=== PATIENT | female | born 1950 | race Caucasian/White ===

== ENCOUNTER → 2017-09-28 16:34 | Outpatient (CLI) | payer MEDICARE, SELFPAY ==
[2017-09-28 17:19] LABS: ALB/GLOB Ratio 0.9 RATIO (0.9-2.4); AST(SGOT) 14 U/L (15-37); Alanine Aminotransfer ALT/SGPT 27 U/L (13-56); Albumin, Serum 3.6 g/dL (3.2-5.0); Alkaline Phosphatase 116 U/L (45-117); Anion Gap 6 (5-15); BUN 14 mg/dL (7-18); BUN/Creat Ratio 16.6 RATIO (10-20); Calcium,Total 9.3 mg/dL (8.5-10.1); Chloride 104 mmol/L (98-107); Creatinine, Serum 0.84 mg/dL (0.55-1.02); EST Glomerular Filtration Rate 72 mL/min (>60); Est Glom Filt Rate - Afr Amer 87 mL/min (>60); Globulin 4.2 g/dL (2.2-4.2); Glucose 176 mg/dL (74-106); Potassium 4.6 mmol/L (3.5-5.1); Protein, Total 7.8 g/dL (6.4-8.2); Sodium Level 139 mmol/L (136-145)
[2017-09-28 17:25] LABS: Hemoglobin A1c 9.3 % (4.2-6.3)
== END ==
PROVIDERS: Family Provider Internal Medicine; PCP Internal Medicine; Visit Provider Internal Medicine
DX: E11.65 Type 2 diabetes mellitus with hyperglycemia (principal); I10 Essential (primary) hypertension
CPT/HCPCS: 80053; 83036

== ENCOUNTER → 2018-01-30 13:15 | Outpatient (CLI) | payer MEDICARE, SELFPAY ==
[2018-01-30 13:37] LABS: Mean Corp Hgb Conc 31.6 g/gl (32-36); Mean Corpuscular Hgb 26.3 pg (27.0-32.0); Mean Corpuscular Volume 83.2 fL (81-99); Mean Platelet Vol. 10.8 fl (6.2-12.0); Platelet Count 273 K/mm3 (150-450); RBC Distribution Width CV 14.3 % (11.6-14.6); Red Blood Count 4.57 M/mm3 (4.2-5.4); White Blood Count 8.2 K/mm3 (4.4-11.0)
[2018-01-30 13:39] LABS: Scan Indicated on CBC? Y/N NO
[2018-01-30 13:45] LABS: Anion Gap 9 (5-15); BUN 23 mg/dL (7-18); BUN/Creat Ratio 24.4 RATIO (10-20); Calcium,Total 9.2 mg/dL (8.5-10.1); Chloride 105 mmol/L (98-107); Creatinine, Serum 0.94 mg/dL (0.55-1.02); EST Glomerular Filtration Rate 63 mL/min (>60); Est Glom Filt Rate - Afr Amer 76 mL/min (>60); Glucose 147 mg/dL (74-106); Potassium 4.7 mmol/L (3.5-5.1); Sodium Level 135 mmol/L (136-145)
[2018-01-30 13:53] LABS: Hemoglobin A1c 8.7 % (4.2-6.3)
== END ==
PROVIDERS: Family Provider Internal Medicine; PCP Internal Medicine; Visit Provider Internal Medicine
DX: E11.65 Type 2 diabetes mellitus with hyperglycemia (principal); Z79.899 Other long term (current) drug therapy
CPT/HCPCS: 80048; 83036; 85027

== ENCOUNTER → 2018-02-01 15:40 | Outpatient (CLI) | payer MEDICARE, SELFPAY ==
--- NOTE | 2018-02-01 15:55 | RAD_ITS ---
STUDY: X-RAY - PELVIS AND LEFT HIP REASON FOR EXAM: Female, 68 years old. Left hip pain TECHNIQUE: Radiological exam, hip, unilateral, with pelvis when performed; 2 or 3 views. COMPARISON: None. FINDINGS: There is a non-specific bowel gas pattern. Normal visualized soft tissue structures. Normal bilateral iliac wings, sacroiliac joints and visualized sacrum. Normal bilateral superior and inferior pubic rami. Normal pubic symphysis. Normal bilateral ischial tuberosities. Normal visualized femoral head. Normal acetabulum. Normal hip joint. RAD/HIP, UNI W/ Pelvis 2-3 Views IMPRESSION: Normal x-ray examination of the pelvis and hip. Electronically Signed: Felix Arora MD at 15:35 EDT , Service support ,
== END ==
LOC: LAB 15:43 → RAD 15:46
PROVIDERS: Family Provider Internal Medicine; PCP Internal Medicine; Visit Provider Internal Medicine
DX: M25.552 Pain in left hip (principal); M53.3 Sacrococcygeal disorders, not elsewhere classified; M70.62 Trochanteric bursitis, left hip
CPT/HCPCS: 73502

== ENCOUNTER → 2018-05-18 12:22 | Outpatient (CLI) | payer MEDICARE, SELFPAY ==
[2018-05-18 13:28] LABS: Hematocrit 35.4 % (37-47); Hemoglobin 11.1 g/dl (12.0-15.0); Mean Corp Hgb Conc 31.4 g/gl (32-36); Mean Corpuscular Hgb 26.1 pg (27.0-32.0); Mean Corpuscular Volume 83.1 fL (81-99); Platelet Count 295 K/mm3 (150-450); RBC Distribution Width CV 14.8 % (11.6-14.6); RBC Distribution Width SD 44.9 fl (35.1-43.9); Red Blood Count 4.26 M/mm3 (4.2-5.4); White Blood Count 7.1 K/mm3 (4.4-11.0)
[2018-05-18 13:29] LABS: Scan Indicated on CBC? Y/N NO
[2018-05-18 13:40] LABS: ALB/GLOB Ratio 0.8 RATIO (0.9-2.4); AST(SGOT) 17 U/L (15-37); Alanine Aminotransfer ALT/SGPT 25 U/L (13-56); Albumin, Serum 3.5 g/dL (3.2-5.0); Alkaline Phosphatase 79 U/L (45-117); Anion Gap 6 (5-15); BUN 21 mg/dL (7-18); BUN/Creat Ratio 23.5 RATIO (10-20); Calcium,Total 8.9 mg/dL (8.5-10.1); Chloride 108 mmol/L (98-107); Cholesterol 195 mg/dL (200); Creatinine, Serum 0.89 mg/dL (0.55-1.02); EST Glomerular Filtration Rate 67 mL/min (>60); Est Glom Filt Rate - Afr Amer 81 mL/min (>60); Globulin 4.2 g/dL (2.2-4.2); Glucose 191 mg/dL (74-106); High Density Lipoprotein 81 mg/dL; Potassium 4.7 mmol/L (3.5-5.1); Protein, Total 7.7 g/dL (6.4-8.2); Sodium Level 140 mmol/L (136-145); Triglycerides 84 mg/dL; Very Low Density Lipoprotein 17 mg/dL (5-40)
[2018-05-18 13:46] LABS: Hemoglobin A1c 8.9 % (4.2-6.3)
[2018-05-18 13:53] LABS: Microalbumin,Random Urine 35.1 mg/L (NO RANGE EST.); Microalbumin:Creatinine Ratio 18.3 mg/g CRE (<30 mg/g CRE)
== END ==
PROVIDERS: Family Provider Internal Medicine; PCP Internal Medicine; Referring Provider Internal Medicine; Visit Provider Internal Medicine
DX: I10 Essential (primary) hypertension (principal); E11.65 Type 2 diabetes mellitus with hyperglycemia; Z79.899 Other long term (current) drug therapy
CPT/HCPCS: 80053; 80061; 82043; 82570; 83036; 85027

== ENCOUNTER → 2018-06-29 07:50 | Outpatient (CLI) | payer MEDICARE, SELFPAY ==
--- NOTE | 2018-06-29 07:52 | BI_ITS ---
MAMMOGRAPHY - BILATERAL SCREENING REASON FOR EXAM: Female, 68 years old. Routine annual screening examination. PERTINENT HISTORY: Non-contributory. Remote right excisional breast biopsy and stereotactic breast biopsy. TECHNIQUE: Digital bilateral breast edgar (3D mammographic acquisition) in the CC and MLO projections. 2-D mediolateral oblique (MLO) and craniocaudad (CC) views of both breasts were obtained. CAD: Full Field Digital Mammography with Computer Added Detection was performed. COMPARISON: No comparison mammograms available at this time. If any prior films become available, an addendum to this report can be generated. FINDINGS: Breast Composition: The breasts are heterogeneously dense, which may obscure small masses. Cluster microcalcification is seen in the slightly superior lateral aspect of the right breast. A biopsy is recommended for further evaluation. Small bilateral axillary lymph nodes. No other significant abnormalities are identified. BI/SCREENING MAMM (CAD), BILAT IMPRESSION: Cluster of mitral calcification in the upper lateral portion of the right breast as described. Biopsy recommended for further evaluation ASSESSMENT CATEGORY: BIRADS Category 4: Suspicious - Biopsy Should Be Considered. A letter regarding these results will be sent to the patient by the facility within 30 days. Approximately 10% of breast cancers are not detected by mammography. A normal mammogram should not delay biopsy of a clinically suspicious abnormality. [id number] Electronically Signed: Jordan Jones MD at 11:16 EST , Service support ,
== END ==
PROVIDERS: Family Provider Internal Medicine; PCP Internal Medicine; Referring Provider Internal Medicine; Visit Provider Internal Medicine
DX: Z12.31 Encounter for screening mammogram for malignant neoplasm of breast (principal)
CPT/HCPCS: 77063; 77067

== ENCOUNTER → 2018-07-28 09:57 | Outpatient (CLI) | payer MEDICARE, SELFPAY ==
[2018-07-11 14:56] VITALS: BMI 39.8
--- NOTE | 2018-07-28 10:50 | PCM.OPRPT ---
Problem List (1) Abnormal mammogram of right breast Status: Acute Report of Operation Date of Procedure: 07/28/18 Pre-Operative Diagnosis: Clustered microcalcifications upper outer quadrant right breast Post-Operative Diagnosis: Same Surgery/Procedure Performed:: Stereotactic needle core biopsy upper outer quadrant right breast Description of Surgical Findings:: Timeout and informed consent was obtained. 68-year-old female was taken to the stereotactic unit placed prone on the table the right breast was placed in the cc view. Stereotactic images were obtained after the lesion was identified. A central target site was selected. The breast was prepped with Betadine. 1% lidocaine mixed 50-50 with 0.5% Marcaine was used as a local anesthetic. A total of 8 cc was used. A small stab incision was created. An 8-gauge resolve needle was advanced to prefer depth. Prefire films were obtained demonstrating adequate localization. The device was fired. 6 cores were obtained. Specimen mammograms were obtained. Cord #2 had the vast majority of the microcalcifications in question present. A marking clip was left at 12 o'clock position. She was released from the device. Pressure was held for hemostasis. The specimens were immediately transferred to formalin for analysis. Specimens breast cores. Drains none. Blood loss minimal. She was given activity wound care instructions. Further office follow-up will be as needed. Reji Donnelly M.D., F.A.C.S. Type of Anesthesia:: Local
== END ==
PROVIDERS: Family Provider Internal Medicine; PCP Internal Medicine; Referring Provider Surgery
DX: N60.21 Fibroadenosis of right breast (principal); R92.8 Other abnormal and inconclusive findings on diagnostic imaging of breast; E11.9 Type 2 diabetes mellitus without complications; I10 Essential (primary) hypertension; M19.90 Unspecified osteoarthritis, unspecified site; G47.30 Sleep apnea, unspecified; F32.9 Major depressive disorder, single episode, unspecified; F41.9 Anxiety disorder, unspecified; Z79.84 Long term (current) use of oral hypoglycemic drugs; Z79.82 Long term (current) use of aspirin; Z79.1 Long term (current) use of non-steroidal anti-inflammatories (NSAID); Z79.899 Other long term (current) drug therapy
CPT/HCPCS: 19081; 88305; J7050

== ENCOUNTER 2018-09-23 17:17 | Emergency (ER) | payer MEDICARE, SELFPAY ==
[2018-07-11 14:56] VITALS: BMI 39.8
[2018-09-23 17:18] VITALS: BP 174/103; PULSE 110; RESP 18; TEMP 36.1; O2SAT 95; BMI 40.0
--- NOTE | 2018-09-23 17:40 | ED.VISSUMM ---
- ER Visit Summary Date of Service: 09/23/18 Chief Complaint: Back pain History of Present Illness: The patient is a 68 F presents to the emergency department lower back pain. Patient states she has a history of spinal stenosis. She has had cervical surgery and lumbar surgery. She states that about a week ago, she began to have a dull ache in her right low back that radiated into her right hip. She thought it was secondary to her new diabetes medication that she was on. She states she stopped taking it. The pain has gotten a little bit worse. She is now having some burning pain in her buttock that radiates down her leg. She denies any change in gait. She denies any trouble urinating or moving her bowels. She denies any trauma. She had no fever or chills. She has taken some Tylenol with some improvement. Physical Examination: Afebrile, vitals unremarkable. Well-appearing female no acute distress. Head is normocephalic, atraumatic. Pupil's equal round reactive, extraocular muscles intact. Neck supple. Heart regular rate and rhythm. Lungs clear, chest nontender. Abdomen soft, nontender, nondistended. No pulsatile mass. Patient has paraspinal tenderness in the lumbar area, but no bony tenderness. Straight leg raise is positive on the right re-creating paresthesias but no weakness. 2+ symmetric lower extremity pulses. 2+ reflexes. No clonus. No weakness of dorsiflexion, plantar flexion, or extensor hallucis longus bilaterally. Test Results: [] Emergency Department Course and Treatment: The patient has no red flag symptoms. She has normal pulses. She does have improvement of pain when she crosses her legs. There is no weakness though. She is a normal steady gait. Plain films were obtained which show degenerative change. My suspicion is that this is a right lower radiculopathy. Patient was given oral analgesics with improvement. She has muscle relaxers at home. I do feel that she is safe for outpatient follow-up. She is comfortable with this plan of care and will be discharged home. Treatment Plan: [] Disposition: Discharge Impression: 1. Right lumbar radiculopathy This note was generated with [employer] software. It may contain incorrect words, spelling, and punctuation that were not noted in review of the chart prior to signing ED Disposition - Plan for ED Patient: Instructions: ED Sciatica Prescriptions: Oxycodone HCl/Acetaminophen [Percocet 5/325] 1 tab PO Q6H PRN PRN 3 Days #12 tab PRN Reason: Pain Referrals: Lesley Yoder MD [Primary Care Provider] -
[2018-09-23] MEDS: oxyCODONE 5 MG Tablet PO (17:43)
--- NOTE | 2018-09-23 17:55 | RAD_ITS ---
STUDY: X-RAY - LUMBAR SPINE REASON FOR EXAM: Female, 68 years old. Lower back pain radiating to right hip and right leg times one week. History of low back surgery. TECHNIQUE: 3 view(s) of the lumbar spine were obtained. COMPARISON: None FINDINGS: Normal lumbar lordosis. There is no substantial scoliosis. There is slight retrolisthesis of L2 on L3. There are changes of prior L2, L3 and partial L4 laminectomies. There is multilevel endplate spondylosis of the lumbar vertebrae, most particularly at L1-2 and L2-3. There is multi-level degenerative disc disease with multi-level disc space narrowing, most severe at L2-3. There is no demonstrated osseous destructive lesion or acute fracture. There are degenerative changes in the lumbar facet joints. There is atherosclerotic calcification of the abdominal aorta without a demonstrated aneurysm. RAD/Lumbar Spine 2 or 3 Views IMPRESSION: Degenerative changes of the spine, as detailed above. Prior laminectomies at L2 and L3, and possible partial laminectomy of L4. Electronically Signed: Pranay Olivares MD at 18:41 EDT , Service support ,
== END 2018-09-23 19:05 | disposition home or self-care (01) ==
LOC: ED 17:54
PROVIDERS: Emergency Provider Emergency Medicine; Family Provider Internal Medicine; PCP Internal Medicine
DX: M54.16 Radiculopathy, lumbar region (principal); M48.00 Spinal stenosis, site unspecified; E11.9 Type 2 diabetes mellitus without complications; Z79.84 Long term (current) use of oral hypoglycemic drugs
CPT/HCPCS: 72100; 99282

== ENCOUNTER → 2018-09-28 | Outpatient (CLI) | payer MEDICARE, SELFPAY ==
[2018-09-23 17:18] VITALS: BMI 40.0
[2018-09-28 16:26] LABS: Hematocrit 39.4 % (37-47); Hemoglobin 12.6 g/dl (12.0-15.0); Mean Corpuscular Hgb 25.6 pg (27.0-32.0); Mean Corpuscular Volume 80.1 fL (81-99); Mean Platelet Vol. 10.4 fl (6.2-12.0); Platelet Count 329 K/mm3 (150-450); RBC Distribution Width CV 15.5 % (11.6-14.6); RBC Distribution Width SD 45.3 fl (35.1-43.9); Red Blood Count 4.92 M/mm3 (4.2-5.4); White Blood Count 7.9 K/mm3 (4.4-11.0)
[2018-09-28 16:30] LABS: Erythrocyte Sedimentation Rate 37 mm/hr (0-30); Scan Indicated on CBC? Y/N NO
[2018-09-28 16:41] LABS: Vitamin D,25 Hydroxy 4.5 ng/mL (29.95-100.01)
[2018-09-28 16:42] LABS: ALB/GLOB Ratio 0.8 RATIO (0.9-2.4); AST(SGOT) 18 U/L (15-37); Alanine Aminotransfer ALT/SGPT 28 U/L (13-56); Albumin, Serum 3.6 g/dL (3.2-5.0); Alkaline Phosphatase 82 U/L (45-117); Anion Gap 8 (5-15); BUN 28 mg/dL (7-18); BUN/Creat Ratio 30.6 RATIO (10-20); CPK Total, Creatine Kinase 53 U/L (26-192); CRP 6.17 mg/L (0.0-3.0); Calcium,Total 9.2 mg/dL (8.5-10.1); Chloride 104 mmol/L (98-107); Cholesterol 171 mg/dL (200); Creatinine, Serum 0.92 mg/dL (0.55-1.02); EST Glomerular Filtration Rate 65 mL/min (>60); Est Glom Filt Rate - Afr Amer 79 mL/min (>60); Free T3 2.7 pg/mL (2.18-3.98); Globulin 4.4 g/dL (2.2-4.2); Glucose 244 mg/dL (74-106); Hemoglobin A1c 9.3 % (4.2-6.3); High Density Lipoprotein 76 mg/dL; Potassium 4.5 mmol/L (3.5-5.1); Sodium Level 137 mmol/L (136-145); T4 Total, Thyroxin 9.6 ug/dL (4.8-13.9); Triglycerides 110 mg/dL; Very Low Density Lipoprotein 22 mg/dL (5-40)
== END | disposition home or self-care (01) ==
LOC: LABSPEC 16:02
PROVIDERS: Family Provider Internal Medicine; PCP Internal Medicine; Referring Provider Internal Medicine; Visit Provider Internal Medicine
DX: M79.10 Myalgia, unspecified site (principal); M25.50 Pain in unspecified joint; E11.65 Type 2 diabetes mellitus with hyperglycemia; E78.2 Mixed hyperlipidemia
CPT/HCPCS: 80053; 80061; 82306; 82550; 83036; 84436; 84443; 84481; 85027; 85652; 86140

== ENCOUNTER 2018-10-03 14:22 | Inpatient (IN) | payer MEDICARE, SELFPAY ==
[2018-10-03] VITALS (14 sets, daily range): BP systolic 94–164; BP diastolic 60–111; PULSE 110–165; RESP 16–28; TEMP 36.5–37.6; O2SAT 95–98; BMI 40.0; BMI 40.6
--- NOTE | 2018-10-03 14:45 | EKG12_ITS ---
Test Reason : RAPID HR Blood Pressure : / mmHG Vent. Rate : 160 BPM Atrial Rate : 220 BPM P-R Int : 000 ms QRS Dur : 078 ms QT Int : 264 ms P-R-T Axes : 000 049 -28 degrees QTc Int : 430 ms Atrial fibrillation with rapid ventricular response Nonspecific ST & T Wave Abnormality Abnormal ECG Confirmed by NEVA CALLOWAY, JULIUS ([id number]), state editor AMALIA MEJIA ([id number]) on 10/05/2018 1:29:42 PM Referred By: NAYLA Confirmed By:JULIUS HOOKS MD
--- NOTE | 2018-10-03 14:45 | CT_ITS ---
STUDY: CT BRAIN WITHOUT CONTRAST REASON FOR EXAM: Female, 68 years old. Slurred speech. New onset of atrial fibrillation. RADIATION DOSAGE (If Supplied By Facility): CTDIvol = ( 44.99 ) mGy, DLP = ( 779.24 ) mGycm TECHNIQUE: Transaxial CT imaging of the brain was performed without administration of intravenous contrast material. Individualized dose optimization techniques were used for this CT. COMPARISON: No relevant priors. FINDINGS: Normal soft tissue structures. There is hyperostosis frontalis internus. There is mild cerebral atrophy with widening of the extra-axial spaces and ventricular dilatation. There is a 7.7 mm rounded hypodensity in the insular cortex of the right temporal lobe. This may represent a lacunar infarct. There is also evidence of mild decreased attenuation in the right posterior temporal parietal lobe. This may represent subacute ischemia. Normal basal ganglia and thalami. Normal brainstem. Normal cerebellum. There is no intracranial hemorrhage. There are no findings of an acute ischemic infarction. Mild mucosal thickening of the left maxillary sinus. CT/Brain/Head without Contrast IMPRESSION: Findings suggestive of a lacunar infarct in the insular cortex of the right temporal lobe. Decreased attenuation in the posterior right temporal parietal lobe. Subacute ischemia should BE ruled out. Electronically Signed: Jordan Jones, at 15:09 EDT , Service support ,
[2018-10-03 14:59] LABS: Absolute Lymphocyte Count 0.52 X10^3/ul (0.83-4.51); Absolute Neutrophil Count 12.5 X10^3/uL (2.0-7.7); Basophil# 0.02 X10^3/uL; Basophil% 0.1 % (0-1); Differential Indicated SCAN CRITERIA MET; Eosinophil# 0.07 X10^3/uL; Eosinophils% 0.5 % (0-5); Hematocrit 34.2 % (37-47); Hemoglobin 11.3 g/dl (12.0-15.0); Lymphocyte # 0.52 X10^3/ul (4.0); Lymphocyte % 3.7 % (19-41); Mean Corpuscular Hgb 25.9 pg (27.0-32.0); Mean Corpuscular Volume 78.4 fL (81-99); Mean Platelet Vol. 11.1 fl (6.2-12.0); Monocyte# 0.88 X10^3/uL; Monocyte% 6.3 % (0-10); Neutrophil # 12.48 X10^3/uL (2.7-7.7); Neutrophil % 89.2 % (47-70); POSITIVE COUNT NO; POSITIVE DIFFERENTIAL YES; POSITIVE MORPHOLOGY NO; Platelet Count 188 K/mm3 (150-450); RBC Distribution Width CV 16.9 % (11.6-14.6); RBC Distribution Width SD 48.4 fl (35.1-43.9); Red Blood Count 4.36 M/mm3 (4.2-5.4)
[2018-10-03] MEDS: 0.9% Normal Saline 1,000 ML 1000 ML IV (15:02)
[2018-10-03 15:11] LABS: Bedside Glucose 421 mg/dL (70-110)
[2018-10-03 15:25] LABS: International Normalized Ratio 1.4; Partial Thromboplast Time 33.4 Seconds (24.1-36.2); Prothrombin Time (Protime)PT. 17.2 SECONDS (11.7-14.9)
[2018-10-03 15:49] LABS: Anion Gap 15 (5-15); BUN 78 mg/dL (7-18); BUN/Creat Ratio 14.7 RATIO (10-20); Calcium,Total 9.2 mg/dL (8.5-10.1); Chloride 95 mmol/L (98-107); Creatinine, Serum 5.31 mg/dL (0.55-1.02); EST Glomerular Filtration Rate 9 mL/min (>60); Est Glom Filt Rate - Afr Amer 10 mL/min (>60); Estimated Creatinine Clearance 8.62 ml/min; Glucose 413 mg/dL (74-106); Potassium 4.6 mmol/L (3.5-5.1); Sodium Level 129 mmol/L (136-145)
--- NOTE | 2018-10-03 16:51 | ED.VISSUMM ---
- ER Visit Summary Date of Service: 10/03/18 Chief Complaint: Back pain History of Present Illness: The patient is a [address] Yoder. She reports that she has low back pain that began abruptly approximately 2 weeks ago. Reports that it is a dull pain is 4-10 with movement and she is pain-free at rest. It radiates down the back of her right leg to her knee. She reports that her right leg is felt weak and numb for the past 3 weeks. Denies any groin numbness. No problems with her bowels or her bladder. She denies any trauma. No fall, MVA, or change in activity. Patient denies any chest pain or palpitations. No fever or chills. No headache. Physical Examination: Vitals: 98.4, 99/68, 156, 16, 96% on room air which is not hypoxic. General: Well-nourished and well-developed. Head: Normocephalic atraumatic. Neck: Supple, no lymphadenopathy. No JVD. Nontender. Cardiovascular: Tachycardic irregular rhythm. No murmurs. Respiratory: No respiratory distress. Clear to auscultation bilaterally. Abdominal: Soft, nontender, nondistended, normal bowel sounds. No guarding, rebound, or peritoneal signs. Back: Moderate diffuse tenderness palpation over the lumbar spine and paraspinous Gaetano and lumbar region bilaterally. Negative straight leg raise bilaterally. 5 out of 5 dorsiflexion, plantarflexion, extensor hallucis longus bilaterally. Normal sensation light touch throughout.. Extremities: Nontender, no edema. Skin: Normal color, no rash. Neurologic: Alert and oriented ?3. Cranial nerves II through XII are intact. Normal strength and sensation. Psych: Normal affect. Test Results: EKG shows atrial fibrillation at a rate of [address] changes. This is a change from 2002. Troponin is negative. Chem-7 is marked for a sodium of 129 with a glucose of 413. Potassium is 4.6, chloride is 95, bicarb is 19, creatinine is 5.31. She has small serum ketones. INR is 1.4 with PTT of 33.4. CBC shows a white count of 14.0 with an H&H of 11.3 and 34.2, segmented neutrophils of 89, monocytes of 4. Clinical Impression(s) from Imaging Studies Brain CT 10/03/18 14:45 IMPRESSION: Findings suggestive of a lacunar infarct in the insular cortex of the right temporal lobe. Decreased attenuation in the posterior right temporal parietal lobe. Subacute ischemia should BE ruled out. Electronically Signed: Jordan Jones, at 15:09 EDT , Service support , Fax [phone] Emergency Department Course and Treatment: Patient refused pain medications and is resting comfortably. She is given a liter normal saline. She was started on insulin drip. She converted to a sinus rhythm here without any further treatment by me. Her NIH scale is 1. Her slurred speech has started more than 24 hours ago. She is not a TPA candidate. Treatment Plan: The patient was discussed with Dr. Lopez. She will be admitted to the hospital for further evaluation and treatment. Disposition: Admitted in serious condition. Impression: 1. Atrial fibrillation with RVR. 2. Back pain. 3. CVA. 4. Acute renal insufficiency. 5. DKA. 6. Critical care time 30 minutes. This note was generated with [employer] dictation software. It may contain incorrect words, spelling, and punctuation that were not noted in review of the chart prior to signing ED Disposition - Plan for ED Patient: Referrals: Lesley Yoder MD [Primary Care Provider] -
--- NOTE | 2018-10-03 16:55 | ED.DCSUM_ITS ---
- ER Visit Summary Date of Service: 10/03/18 Chief Complaint: Back pain History of Present Illness: The patient is a [address] Yoder. She reports that she has low back pain that began abruptly approximately 2 weeks ago. Reports that it is a dull pain is 4-10 with movement and she is pain-free at rest. It radiates down the back of her right leg to her knee. She reports that her right leg is felt weak and numb for the past 3 weeks. Denies any groin numbness. No problems with her bowels or her bladder. She denies any trauma. No fall, MVA, or change in activity. Patient denies any chest pain or palpitations. No fever or chills. No headache. Physical Examination: Vitals: 98.4, 99/68, 156, 16, 96% on room air which is not hypoxic. General: Well-nourished and well-developed. Head: Normocephalic atraumatic. Neck: Supple, no lymphadenopathy. No JVD. Nontender. Cardiovascular: Tachycardic irregular rhythm. No murmurs. Respiratory: No respiratory distress. Clear to auscultation bilaterally. Abdominal: Soft, nontender, nondistended, normal bowel sounds. No guarding, rebound, or peritoneal signs. Back: Moderate diffuse tenderness palpation over the lumbar spine and paraspinous Gaetano and lumbar region bilaterally. Negative straight leg raise bilaterally. 5 out of 5 dorsiflexion, plantarflexion, extensor hallucis longus bilaterally. Normal sensation light touch throughout.. Extremities: Nontender, no edema. Skin: Normal color, no rash. Neurologic: Alert and oriented ?3. Cranial nerves II through XII are intact. Normal strength and sensation. Psych: Normal affect. Test Results: EKG shows atrial fibrillation at a rate of [address] changes. This is a change from 2002. Troponin is negative. Chem-7 is marked for a sodium of 129 with a glucose of 413. Potassium is 4.6, chloride is 95, bicarb is 19, creatinine is 5.31. She has small serum ketones. INR is 1.4 with PTT of 33.4. CBC shows a white count of 14.0 with an H&H of 11.3 and 34.2, segmented neutrophils of 89, monocytes of 4. Clinical Impression(s) from Imaging Studies Brain CT 10/03/18 14:45 IMPRESSION: Findings suggestive of a lacunar infarct in the insular cortex of the right temporal lobe. Decreased attenuation in the posterior right temporal parietal lobe. Subacute ischemia should BE ruled out. Electronically Signed: Jordan Jones, at 15:09 EDT , Service support , Fax [phone] Emergency Department Course and Treatment: Patient refused pain medications and is resting comfortably. She is given a liter normal saline. She was started on insulin drip. She converted to a sinus rhythm here without any further treatment by me. Her NIH scale is 1. Her slurred speech has started more than 24 hours ago. She is not a TPA candidate. Treatment Plan: The patient was discussed with Dr. Lopez. She will be admitted to the hospital for further evaluation and treatment. Disposition: Admitted in serious condition. Impression: 1. Atrial fibrillation with RVR. 2. Back pain. 3. CVA. 4. Acute renal insufficiency. 5. DKA. 6. Critical care time 30 minutes. This note was generated with [employer] dictation software. It may contain incorrect words, spelling, and punctuation that were not noted in review of the chart prior to signing ED Disposition - Plan for ED Patient: Referrals: Lesley Yoder MD [Primary Care Provider] -
--- NOTE | 2018-10-03 17:27 | PCM.HP.STD ---
History of Present Illness Date of Admission: 10/03/18 Chief Complaint: general malaise The patient is a 68 year old F with past medical history as listed. She was admitted through the ED on 10/03/2018 with complaint of generalized malaise and back pain as well as generalized pain for the past 3 weeks which had worsened recently. Patient states that she had seen her primary care doctor and had consider urgent care and emergency room for the back pain and generalized malaise. Back x-ray was done but she was told there was nothing wrong with it. She went home and felt unsteady on her feet and has had several falls recently. Symptoms were however persisting and she started feeling some weakness in her right side though she does have chronic baseline right-sided weakness. She therefore decided to come into the ED today. On arrival in the ED, she was found to be in A. fib with RVR with heart rate in the 160s the patient denied ever having any palpitations. Labs done showed sodium of 129 with bicarb of 19 and anion gap of 15. Creatinine was 5.31 with a baseline creatinine of less than 1 just a few days ago. Glucose was 421 and CBC showed white cell count of 14. Brain CT showed findings suggestive of a lacunar infarct in the insular cortex of the right temporal lobe with decreased attenuation in the right posterior temporal parietal lobe. She spontaneously converted to sinus rhythm was in the ED. She has been admitted to be managed for new onset CRISTIAN, DKA and stroke. [] Past Medical History Medical History: Medical History (Last Reviewed 07/11/18 @ 14:55 by Dede Kasper) Abnormal mammogram of right breast (Acute) R92.8 Abnormal mammogram of right breast R92.8 Arthritis M19.90 Depression with anxiety F41.8 Diabetes E11.9 Sleep apnea G47.30 Hypertension I10 Allergies fosinopril [From Monopril] Allergy (Unknown, Verified 10/03/18 14:25) unknown pioglitazone Adverse Reaction (Verified 10/03/18 14:25) Other Home Medications: Ambulatory Orders Medication Instructions Recorded aspirin 81 mg chewable tablet 81 mg PO DAILY 07/11/18 glimepiride 4 mg tablet 4 mg PO BID tab 07/11/18 losartan 50 mg tablet 50 mg PO BID tab 07/11/18 metformin 1,000 mg tablet 1,000 mg PO BID 07/11/18 naproxen 500 mg tablet 500 mg PO BID 07/11/18 oxybutynin chloride ER 15 mg 15 mg PO DAILY 07/11/18 tablet,extended release 24 hr sertraline 100 mg tablet 100 mg PO DAILY 07/11/18 sitagliptin 100 mg tablet 100 mg PO DAILY 07/11/18 Acetaminophen [Tylenol Extra 500 mg PO Q6H PRN PRN 10/03/18 Strength] Cyclobenzaprine HCl 5 - 10 mg PO TID PRN PRN 10/03/18 Metoprolol Tartrate [Lopressor 25 mg PO BID 10/03/18 (beta fritz)] Oxycodone HCl/Acetaminophen 1 tab PO Q6H PRN PRN 10/03/18 [Oxycodone-Acetaminophen 5-325] Simvastatin [Zocor] 20 mg PO QHS 10/03/18 Surgical History: Surgical History (Last Updated 07/11/18 @ 14:55 by Dede Kasper) History of back surgery Z98.890 History of carpal tunnel release Z98.890 History of hysterectomy Z90.710 Psychiatric History: No pertinent psych hx 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 Denies: Chills, Fever, Night Sweats Eyes: Denies: Blurred vision, Conjunctivae Inflammation, Double vision, Vision Change HEENT: Denies: Head Aches, Sinus Congestion, Sinus Drainage Cardiovascular: Denies: Chest Pain, Palpitations Respiratory: Denies: Cough, Shortness of Breath, Shortness of breath at rest, Shortness of breath upon exertion, Sputum production, Wheezing Gastrointestinal: Denies: Abdominal Pain, Nausea, Vomiting Genitourinary: Denies: Dysuria Musculoskeletal: Denies: Joint Pain, Joint Tenderness Skin: Denies: Rash, Wounds Neurological: Reports: Balance problems, Focal weakness. Denies: Blurred vision, Double vision, Change in Speech, Slurred speech, Confusion, Difficulty swallowing, Incoordination, Numbness, Tingling, Tremor, Seizures Psychiatric: Denies: Anxiety, Depression, Homicidal Ideations, Suicidal Ideations Hematologic/ Lymphatic: Denies: Easy Bruising, Easy Bleeding VTE Information - Inpt Only VTE Present on Admission: No VTE Pharm Prophylaxis ordered?: Yes - Physical Exam General: Alert, Oriented x3, Cooperative, No apparent distress, Lethargic HEENT: Atraumatic, PERRLA, EOMI, Normocephalic Oral: Dry Mucosa Neck: Supple, No JVD, Negative Carotid Bruits Lungs: Clear to auscultation, Normal air movement, No rhonchi, No wheeze, No rales Cardiovascular: Normal S1, Normal S2, No murmurs, Tachycardic Abdomen: Bowel Sounds Present, Soft, Non Tender, Non-Distended, No Hepato-splenomegaly Extremities: No clubbing, No cyanosis, No edema, Capillary Refill Less than 3 Seconds Skin: No rashes, No breakdown Musculoskeletal: No Tenderness to Palpation of Joints or Extremities Lymphatic: No Cervical, Supraclavicular, or Inguinal Adenopathy Neurological: Cranial nerves II-XII grossly intact, Neuro grossly intact, - - very mildly decreased power in RUE. Psych/Mental Status: Normal Affect, Appropriate, Alert and oriented to time, place, person, mood and affect Vital Signs Temp Pulse Resp BP Pulse Ox 98.4 F 110 H 20 H 117/60 95 10/03/18 14:22 10/03/18 17:00 10/03/18 17:00 10/03/18 17:00 10/03/18 17:00 Oxygen Flow Rate (L/min) 2 Oxygen Delivery Method Nasal Cannula Weight: 226 lb Body Mass Index (BMI) 40.0 Finger Stick Blood Glucose 421 Laboratory Tests Past 24 Hrs 10/03/18 10/03/18 10/03/18 14:45 14:45 14:45 WBC 14.0 H RBC 4.36 Hgb 11.3 L Hct 34.2 L MCV 78.4 L MCH 25.9 L MCHC 33.0 RDW 16.9 H RDW Differential 48.4 H Plt Count 188 MPV 11.1 Immature Gran % (Auto) 0.200 Neut % (Auto) 89.2 H Lymph % (Auto) 3.7 L [place] % (Auto) 6.3 Eos % (Auto) 0.5 Baso % (Auto) 0.1 Absolute Neuts (auto) 12.5 H Absolute Lymphs (auto) 0.52 L Total Counted Not Reportable PT Cancelled INR Cancelled APTT Cancelled Sodium Cancelled Potassium Cancelled Chloride Cancelled Carbon Dioxide Cancelled Anion Gap Cancelled BUN Cancelled Creatinine Cancelled Estim Creat Clear Calc Cancelled Est GFR (MDRD) Af Amer Cancelled Est GFR (MDRD) Non-Af Cancelled BUN/Creatinine Ratio Cancelled Glucose Cancelled Calcium Cancelled Troponin I Cancelled Acetone Level 10/03/18 10/03/18 10/03/18 15:07 15:07 15:40 WBC RBC Hgb Hct MCV MCH MCHC RDW RDW Differential Plt Count MPV Immature Gran % (Auto) Neut % (Auto) Lymph % (Auto) [place] % (Auto) Eos % (Auto) Baso % (Auto) Absolute Neuts (auto) Absolute Lymphs (auto) Total Counted PT 17.2 H INR 1.4 APTT 33.4 Sodium 129 L Potassium 4.6 Chloride 95 L Carbon Dioxide 19.0 L Anion Gap 15 BUN 78 H Creatinine 5.31 H Estim Creat Clear Calc 8.62 Est GFR (MDRD) Af Amer 10 L Est GFR (MDRD) Non-Af 9 L BUN/Creatinine Ratio 14.7 Glucose 413 H Calcium 9.2 Troponin I < 0.015 Acetone Level SMALL H POC Glucose 10/03/18 15:05 POC Glucose 421 H Diagnostic Data Brain CT 10/03/18 14:45 IMPRESSION: Findings suggestive of a lacunar infarct in the insular cortex of the right temporal lobe. Decreased attenuation in the posterior right temporal parietal lobe. Subacute ischemia should BE ruled out. Electronically Signed: Jordan Jones, at 15:09 EDT , Service support , Assessment/Plan All Active Problems (Last Reviewed 07/11/18 @ 14:55 by Dede Kasper) Abnormal mammogram of right breast (Acute) 68-year-old female admitted with a complaint of generalized malaise and weakness found to be in A. fib with RVR, DKA and having severe CRISTIAN. 1. Afib with RVR new onset, has no history of AFib spontaneously converted to sinus rhythm in ED admit to ICU o/a of concomitant severe CRISTIAN and DKA monitor HR for now. IV lopressor prn. If HR remains persistently >120, to start cardizem drip 2D echo, cycle troponins CHADVASC score is 5 will benefit from anticoagulation- will hold off for now till after the MRI of the cardiology consult- discussed with DR Wesley, will start amiodarone drip with bolus if HR remains elevated 2. DKA says she has been compliant with her diabetes meds, but has not been eating or drinking well glucose was 421, bicarb is 19 and anion gap is 15 will hydrate with IVF ~ 150cc/hr of NS; insulin drip at 0.1IU/kg/hr switch to D5 1/2 NS when blood sugar falls to <250 check BMP [id number] hold oral diabetes meds for now-metformin, januvia and glimepiride. check A1C 3. CRISTIAN Cr is 5.31, was <1 around a week ago. will check urinalysis check FeNA to assess type of CRISTIAN will check CPK too in light of her frequent falls and generalised body aches renal USG if CR doesnt trend down by tomorrow, will consult nephrology 4. SIRS criteria has SIRS 3/4 present (tachycardia, tachypnea and leucocytosis) wbc is 145 no clear source of infection,. may be reactive from DKA and Afib will get blood cultures; hold off on antibiotics for now monitor SIRS criteria 5. Acute CVA NIHSS- [address] brain showed lacunar infarct in insular cortex of right temporal lobe and decdresed attenuation in the posterior right temporal parietal lobe; subacute ischemia should be ruled out consult neurology MRI brain and MRA of the head/neck neurochecks as per stroke protocol check A1C and lipid panel high intensity statin consult PT/OT hold BP meds for permissive hypertension. Start BP meds only if BP<220/120mmHg out of window for TPA as symptoms started weeks ago and her last known well as she remembers is 3 weeks ago will not start anticoagulation for Afib for now o/a of the ischemic CVA. 6. Hyponatremia: Na is 129. Likely a pseudohyponatremia due to hyperglycemia. Corrected sodium is 134 Hydrate with IVF nad monitor 7. Hypertension: BP 117/60 at time of admission. WIll hold BP meds- losartan, metoprolol and allow for permissive hypertension 8. Urinary retention: On oxybutynin. DVT prophylaxis: Heparin Total critical care time: 55 mins spent seeing patient, and coordinating care. Code Visit Inpatient E&M: 78527 Init Hosp L3 Procedures: 66792 Critial Care 1st Hr
[2018-10-03 17:30] LABS: Bedside Glucose 328 mg/dL (70-110)
--- NOTE | 2018-10-03 17:31 | HP.PCM_ITS ---
History of Present Illness Date of Admission: 10/03/18 Chief Complaint: general malaise The patient is a 68 year old F with past medical history as listed. She was admitted through the ED on 10/03/2018 with complaint of generalized malaise and back pain as well as generalized pain for the past 3 weeks which had worsened recently. Patient states that she had seen her primary care doctor and had consider urgent care and emergency room for the back pain and generalized malaise. Back x-ray was done but she was told there was nothing wrong with it. She went home and felt unsteady on her feet and has had several falls recently. Symptoms were however persisting and she started feeling some weakness in her right side though she does have chronic baseline right-sided weakness. She therefore decided to come into the ED today. On arrival in the ED, she was found to be in A. fib with RVR with heart rate in the 160s the patient denied ever having any palpitations. Labs done showed sodium of 129 with bicarb of 19 and anion gap of 15. Creatinine was 5.31 with a baseline creatinine of less than 1 just a few days ago. Glucose was 421 and CBC showed white cell count of 14. Brain CT showed findings suggestive of a lacunar infarct in the insular cortex of the right temporal lobe with decreased attenuation in the right posterior temporal parietal lobe. She spontaneously converted to sinus rhythm was in the ED. She has been admitted to be managed for new onset CRISTIAN, DKA and stroke. [] Past Medical History Medical History: Medical History (Last Reviewed 07/11/18 @ 14:55 by Dede Kasper) Abnormal mammogram of right breast (Acute) R92.8 Abnormal mammogram of right breast R92.8 Arthritis M19.90 Depression with anxiety F41.8 Diabetes E11.9 Sleep apnea G47.30 Hypertension I10 Allergies fosinopril [From Monopril] Allergy (Unknown, Verified 10/03/18 14:25) unknown pioglitazone Adverse Reaction (Verified 10/03/18 14:25) Other Home Medications: Ambulatory Orders Medication Instructions Recorded aspirin 81 mg chewable tablet 81 mg PO DAILY 07/11/18 glimepiride 4 mg tablet 4 mg PO BID tab 07/11/18 losartan 50 mg tablet 50 mg PO BID tab 07/11/18 metformin 1,000 mg tablet 1,000 mg PO BID 07/11/18 naproxen 500 mg tablet 500 mg PO BID 07/11/18 oxybutynin chloride ER 15 mg 15 mg PO DAILY 07/11/18 tablet,extended release 24 hr sertraline 100 mg tablet 100 mg PO DAILY 07/11/18 sitagliptin 100 mg tablet 100 mg PO DAILY 07/11/18 Acetaminophen [Tylenol Extra 500 mg PO Q6H PRN PRN 10/03/18 Strength] Cyclobenzaprine HCl 5 - 10 mg PO TID PRN PRN 10/03/18 Metoprolol Tartrate [Lopressor 25 mg PO BID 10/03/18 (beta fritz)] Oxycodone HCl/Acetaminophen 1 tab PO Q6H PRN PRN 10/03/18 [Oxycodone-Acetaminophen 5-325] Simvastatin [Zocor] 20 mg PO QHS 10/03/18 Surgical History: Surgical History (Last Updated 07/11/18 @ 14:55 by Dede Kasper) History of back surgery Z98.890 History of carpal tunnel release Z98.890 History of hysterectomy Z90.710 Psychiatric History: No pertinent psych 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 Denies: Chills, Fever, Night Sweats Eyes: Denies: Blurred vision, Conjunctivae Inflammation, Double vision, Vision Change HEENT: Denies: Head Aches, Sinus Congestion, Sinus Drainage Cardiovascular: Denies: Chest Pain, Palpitations Respiratory: Denies: Cough, Shortness of Breath, Shortness of breath at rest, Shortness of breath upon exertion, Sputum production, Wheezing Gastrointestinal: Denies: Abdominal Pain, Nausea, Vomiting Genitourinary: Denies: Dysuria Musculoskeletal: Denies: Joint Pain, Joint Tenderness Skin: Denies: Rash, Wounds Neurological: Reports: Balance problems, Focal weakness. Denies: Blurred vision, Double vision, Change in Speech, Slurred speech, Confusion, Difficulty swallowing, Incoordination, Numbness, Tingling, Tremor, Seizures Psychiatric: Denies: Anxiety, Depression, Homicidal Ideations, Suicidal Ideations Hematologic/ Lymphatic: Denies: Easy Bruising, Easy Bleeding VTE Information - Inpt Only VTE Present on Admission: No VTE Pharm Prophylaxis ordered?: Yes - Physical Exam General: Alert, Oriented x3, Cooperative, No apparent distress, Lethargic HEENT: Atraumatic, PERRLA, EOMI, Normocephalic Oral: Dry Mucosa Neck: Supple, No JVD, Negative Carotid Bruits Lungs: Clear to auscultation, Normal air movement, No rhonchi, No wheeze, No rales Cardiovascular: Normal S1, Normal S2, No murmurs, Tachycardic Abdomen: Bowel Sounds Present, Soft, Non Tender, Non-Distended, No Hepato- splenomegaly Extremities: No clubbing, No cyanosis, No edema, Capillary Refill Less than 3 Seconds Skin: No rashes, No breakdown Musculoskeletal: No Tenderness to Palpation of Joints or Extremities Lymphatic: No Cervical, Supraclavicular, or Inguinal Adenopathy Neurological: Cranial nerves II-XII grossly intact, Neuro grossly intact, - - very mildly decreased power in RUE. Psych/Mental Status: Normal Affect, Appropriate, Alert and oriented to time, place, person, mood and affect Vital Signs Temp Pulse Resp BP Pulse Ox 98.4 F 110 H 20 H 117/60 95 10/03/18 14:22 10/03/18 17:00 10/03/18 17:00 10/03/18 17:00 10/03/18 17:00 Oxygen Flow Rate (L/min) 2 Oxygen Delivery Method Nasal Cannula Weight: 226 lb Body Mass Index (BMI) 40.0 Finger Stick Blood Glucose 421 Laboratory Tests Past 24 Hrs 10/03/18 10/03/18 10/03/18 14:45 14:45 14:45 WBC 14.0 H RBC 4.36 Hgb 11.3 L Hct 34.2 L MCV 78.4 L MCH 25.9 L MCHC 33.0 RDW 16.9 H RDW Differential 48.4 H Plt Count 188 MPV 11.1 Immature Gran % (Auto) 0.200 Neut % (Auto) 89.2 H Lymph % (Auto) 3.7 L [place] % (Auto) 6.3 Eos % (Auto) 0.5 Baso % (Auto) 0.1 Absolute Neuts (auto) 12.5 H Absolute Lymphs (auto) 0.52 L Total Counted Not Reportable PT Cancelled INR Cancelled APTT Cancelled Sodium Cancelled Potassium Cancelled Chloride Cancelled Carbon Dioxide Cancelled Anion Gap Cancelled BUN Cancelled Creatinine Cancelled Estim Creat Clear Calc Cancelled Est GFR (MDRD) Af Amer Cancelled Est GFR (MDRD) Non-Af Cancelled BUN/Creatinine Ratio Cancelled Glucose Cancelled Calcium Cancelled Troponin I Cancelled Acetone Level 10/03/18 10/03/18 10/03/18 15:07 15:07 15:40 WBC RBC Hgb Hct MCV MCH MCHC RDW RDW Differential Plt Count MPV Immature Gran % (Auto) Neut % (Auto) Lymph % (Auto) [place] % (Auto) Eos % (Auto) Baso % (Auto) Absolute Neuts (auto) Absolute Lymphs (auto) Total Counted PT 17.2 H INR 1.4 APTT 33.4 Sodium 129 L Potassium 4.6 Chloride 95 L Carbon Dioxide 19.0 L Anion Gap 15 BUN 78 H Creatinine 5.31 H Estim Creat Clear Calc 8.62 Est GFR (MDRD) Af Amer 10 L Est GFR (MDRD) Non-Af 9 L BUN/Creatinine Ratio 14.7 Glucose 413 H Calcium 9.2 Troponin I < 0.015 Acetone Level SMALL H POC Glucose 10/03/18 15:05 POC Glucose 421 H Diagnostic Data Brain CT 10/03/18 14:45 IMPRESSION: Findings suggestive of a lacunar infarct in the insular cortex of the right temporal lobe. Decreased attenuation in the posterior right temporal parietal lobe. Subacute ischemia should BE ruled out. Electronically Signed: Jordan Jones, at 15:09 EDT , Service support , Assessment/Plan All Active Problems (Last Reviewed 07/11/18 @ 14:55 by Dede Kasper) Abnormal mammogram of right breast (Acute) 68-year-old female admitted with a complaint of generalized malaise and weakness found to be in A. fib with RVR, DKA and having severe CRISTIAN. 1. Afib with RVR * new onset, has no history of AFib * spontaneously converted to sinus rhythm in ED * admit to ICU o/a of concomitant severe CRISTIAN and DKA * monitor HR for now. IV lopressor prn. If HR remains persistently >120, to start cardizem drip * 2D echo, cycle troponins * CHADVASC score is 5 * will benefit from anticoagulation- will hold off for now till after the MRI of the * cardiology consult- discussed with DR Wesley, will start amiodarone drip with bolus if HR remains elevated * 2. DKA * says she has been compliant with her diabetes meds, but has not been eating or drinking well * glucose was 421, bicarb is 19 and anion gap is 15 * will hydrate with IVF ~ 150cc/hr of NS; insulin drip at 0.1IU/kg/hr * switch to D5 1/2 NS when blood sugar falls to <250 * check BMP y0cyensy * hold oral diabetes meds for now-metformin, januvia and glimepiride. * check A1C * 3. CRISTIAN * Cr is 5.31, was <1 around a week ago. * will check urinalysis * check FeNA to assess type of CRISTIAN * will check CPK too in light of her frequent falls and generalised body aches * renal USG * if CR doesnt trend down by tomorrow, will consult nephrology * 4. SIRS criteria * has SIRS 3/4 present (tachycardia, tachypnea and leucocytosis) * wbc is 145 * no clear source of infection,. * may be reactive from DKA and Afib * will get blood cultures; hold off on antibiotics for now * monitor SIRS criteria * 5. Acute CVA * NIHSS- 1 on review * CT brain showed lacunar infarct in insular cortex of right temporal lobe and decdresed attenuation in the posterior right temporal parietal lobe; subacute ischemia should be ruled out * consult neurology * MRI brain and MRA of the head/neck * neurochecks as per stroke protocol * check A1C and lipid panel * high intensity statin * consult PT/OT * hold BP meds for permissive hypertension. Start BP meds only if BP<220/120mmHg * out of window for TPA as symptoms started weeks ago and her last known well as she remembers is 3 weeks ago * will not start anticoagulation for Afib for now o/a of the ischemic CVA. * 6. Hyponatremia: * Na is 129. * Likely a pseudohyponatremia due to hyperglycemia. * Corrected sodium is 134 * Hydrate with IVF nad monitor 7. Hypertension: BP 117/60 at time of admission. WIll hold BP meds- losartan, metoprolol and allow for permissive hypertension 8. Urinary retention: On oxybutynin. DVT prophylaxis: Heparin Total critical care time: 55 mins spent seeing patient, and coordinating care. Code Visit Inpatient E&M: 54369 Init Hosp L3 Procedures: 69647 Critial Care 1st Hr
[2018-10-03 17:56] LABS: Bedside Glucose 356 mg/dL (70-110)
--- NOTE | 2018-10-03 17:59 | US_ITS ---
STUDY: RENAL ULTRASOUND - COMPLETE REASON FOR EXAM: Female, 68 years old. Acute renal failure. TECHNIQUE: Ultrasound evaluation of the kidneys was performed with real-time and static boothe-scale imaging. COMPARISON: None. FINDINGS: RIGHT KIDNEY: Normal location of the right kidney, which is normal in size. The right kidney measures 11.4 cm. There is a normal cortex of the right kidney. The renal cortex measures 1.8 cm. There is no right renal mass or cyst. There are no right renal calculi. There is no right hydronephrosis. DISTAL RIGHT URETER: There is non-visualization of the distal right ureter. There is no demonstrated right ureterovesical junction calculus. There is no demonstrated right ureteral jet. LEFT KIDNEY: Normal location of the left kidney, which is normal in size. The left kidney measures 11.9 cm. There is a normal cortex of the left kidney. The renal cortex measures 1.9 cm. There is no left renal mass or cyst. There are no left renal calculi. There is no left hydronephrosis. DISTAL LEFT URETER: There is non-visualization of the distal left ureter. There is no demonstrated left ureterovesical junction calculus. There is no demonstrated left ureteral jet. BLADDER: The urinary bladder is collapsed about a Butt catheter. US/Kidney and Bladder IMPRESSION: Normal ultrasound of the kidneys. Electronically Signed: Sridhar Marinelli DO at 23:20 EDT Tel [phone], Service support ,
[2018-10-03] MEDS: Metoprolol Tartrate 5 MG/5 ML Vial IV ×2 (18:45→19:49)
[2018-10-03 19:03] LABS: Hemoglobin A1c 9.8 % (4.2-6.3)
[2018-10-03 19:44] LABS: Color, Urine Yellow (Yellow); Glucose, Dipstick Normal (Normal); Ketone-Dipstick 5 mg/dl (Negative); Leukocyte Esterase-Dipstick 500 /ul (Negative); Nitrite-Dipstick Positive (Negative); Occult Blood-Urine 150 /ul (Negative); Protein-Dipstick 100 mg/dl (Negative); Urine Clarity Turbid (Clear); Urine Urobilinogen 1 mg/dl (Normal)
[2018-10-03 19:47] LABS: Urine Bilirubin Dipstick 1 mg/dL (Negative); Urine Sodium 40 mmol/L (Not Establ.)
[2018-10-03 19:54] LABS: Anion Gap 12 (5-15); BUN 77 mg/dL (7-18); BUN/Creat Ratio 15.2 RATIO (10-20); CPK Total, Creatine Kinase 49 U/L (26-192); Calcium,Total 8.9 mg/dL (8.5-10.1); Chloride 99 mmol/L (98-107); Cholesterol 139 mg/dL (200); Creatinine, Serum 5.05 mg/dL (0.55-1.02); EST Glomerular Filtration Rate 9 mL/min (>60); Est Glom Filt Rate - Afr Amer 11 mL/min (>60); Estimated Creatinine Clearance 9.06 ml/min; Glucose 333 mg/dL (74-106); High Density Lipoprotein 9 mg/dL; Potassium 4.4 mmol/L (3.5-5.1); Sodium Level 131 mmol/L (136-145); Triglycerides 508 mg/dL
[2018-10-03 20:10] LABS: Bedside Glucose 337 mg/dL (70-110)
--- NOTE | 2018-10-03 20:20 | PCM.CONS.C ---
Problem List (1) Atrial fibrillation Status: Acute (2) HTN (hypertension) Status: Chronic (3) Hypertriglyceridemia Status: Acute (4) Diabetes mellitus Status: Chronic (5) DKA (diabetic ketoacidoses) Status: Acute (6) Renal insufficiency Status: Acute (7) CVA (cerebral vascular accident) Status: Acute Reason for Consult Date of Consultation: 10/03/18 History of Present Illness: The patient is a 68 year old white female with no past cardiovascular history other than hypertension who was referred for atrial fibrillation with RVR in the setting of an acute CVA superimposed upon findings of hypertriglyceridemia, diabetes mellitus with concerns of DKA, and acute renal insufficiency. The patient presented based upon concerns of ongoing generalized weakness/malaise and back discomfort and was felt to have right-sided lower extremity paresthesias and weakness. In the emergency department she was found to be in atrial fibrillation with rapid ventricular response. She was also found to have concerns of DKA and acute renal insufficiency. She was subsequently placed in the ICU for further evaluation and care. She was started on medical management with IV metoprolol and IV amiodarone. She has demonstrated intermittent episodes of sinus rhythm She has denied any chest discomfort or difficulty breathing. She states she has had some lower extremity edema after starting a new medication . She does not recall any episodes of orthopnea or PND, near syncope or syncope, nor has she noted any obvious palpitations or rapid rates. She has had cardiac enzymes performed and repeated. They have been negative thus far. Her ECG has been performed and repeated and demonstrated atrial fibrillation with nonspecific ST and T wave abnormality. [] Past Medical History Allergies/Adverse Reactions: Allergies fosinopril [From Monopril] Allergy (Unknown, Verified 10/03/18 14:25) unknown pioglitazone Adverse Reaction (Verified 10/03/18 14:25) Other Home Medications: Ambulatory Orders Medication Instructions Recorded aspirin 81 mg chewable tablet 81 mg PO DAILY 07/11/18 glimepiride 4 mg tablet 4 mg PO BID tab 07/11/18 losartan 50 mg tablet 50 mg PO BID tab 07/11/18 metformin 1,000 mg tablet 1,000 mg PO BID 07/11/18 naproxen 500 mg tablet 500 mg PO BID 07/11/18 oxybutynin chloride ER 15 mg 15 mg PO DAILY 07/11/18 tablet,extended release 24 hr sertraline 100 mg tablet 100 mg PO DAILY 07/11/18 sitagliptin 100 mg tablet 100 mg PO DAILY 07/11/18 Acetaminophen [Tylenol Extra 500 mg PO Q6H PRN PRN 10/03/18 Strength] Cyclobenzaprine HCl 5 - 10 mg PO TID PRN PRN 10/03/18 Metoprolol Tartrate [Lopressor 25 mg PO BID 10/03/18 (beta fritz)] Oxycodone HCl/Acetaminophen 1 tab PO Q6H PRN PRN 10/03/18 [Oxycodone-Acetaminophen 5-325] Simvastatin [Zocor] 20 mg PO QHS 10/03/18 Past Medical History (Chronic Problems): Chronic Problems (Last Reviewed 07/11/18 @ 14:55 by Dede Kasper) HTN (hypertension) (Chronic) Diabetes mellitus (Chronic) Psychiatric History: No pertinent psych hx 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 Denies: Fever, Fatigue, Night Sweats Cardiovascular: Reports: Peripheral Edema. Denies: Chest Discomfort, Shortness of Breath, Orthopnea, PND, Palpitations, Lightheadedness, Dizziness, Near Syncope, Syncope Respiratory: Reports: Cough Gastrointestinal: Denies: Hematemesis, Hematochezia, Melena Genitourinary: Denies: Dysuria, Hematuria Muscoloskeletal: Reports: Muscle Weakness, Back Pain Skin: Denies: Rash Subjectve: This is a 68-year-old white female who appears to be resting comfortably at the moment in no acute distress. Objective: Vital Signs Temp Pulse Resp BP Pulse Ox 97.7 F L 153 H 27 H 135/111 H 96 10/03/18 18:00 10/03/18 19:49 10/03/18 19:00 10/03/18 19:49 10/03/18 19:00 Oxygen Flow Rate (L/min) 2 Oxygen Delivery Method Nasal Cannula Weight: 229 lb 0.964 oz Body Mass Index (BMI) 40.6 Finger Stick Blood Glucose 337 General: Awake, Alert, Oriented x 3, Cooperative, No Acute Distress, Obese HEENT: Atraumatic, Normocephalic, PERRL, EOMI, Sclera Non Icteric Oral: Moist Mucosa Neck: Supple, Good ROM, No JVD Lungs: Clear to auscultation Cardiovascular: Irregular Rhythm, Normal S1, Normal S2 Vascular: No Carotid Bruits Abdomen: Bowel Sounds Present, Soft, Non Tender Extremities: Trace RLE Edema, Trace LLE Edema Psych/Mental Status: Appropriate 10/03/18 14:45: WBC 14.0 H, RBC 4.36, Hgb 11.3 L, Hct 34.2 L, MCV 78.4 L, MCH 25.9 L, MCHC 33.0, RDW 16.9 H, RDW Differential 48.4 H, Plt Count 188, MPV 11.1, Immature Gran % (Auto) 0.200, Neut % (Auto) 89.2 H, Lymph % (Auto) 3.7 L, [place] % (Auto) 6.3, Eos % (Auto) 0.5, Baso % (Auto) 0.1, Absolute Neuts (auto) 12.5 H, Total Counted Not Reportable 10/03/18 14:45: PT Cancelled, INR Cancelled, APTT Cancelled 10/03/18 14:45: Sodium Cancelled, Potassium Cancelled, Chloride Cancelled, Carbon Dioxide Cancelled, Anion Gap Cancelled, BUN Cancelled, Creatinine Cancelled, Est GFR (MDRD) Af Amer Cancelled, Est GFR (MDRD) Non-Af Cancelled, BUN/Creatinine Ratio Cancelled, Glucose Cancelled, Calcium Cancelled, Troponin I Cancelled 10/03/18 15:07: PT 17.2 H, INR 1.4, APTT 33.4 10/03/18 15:07: Sodium 129 L, Potassium 4.6, Chloride 95 L, Carbon Dioxide 19.0 L, Anion Gap 15, BUN 78 H, Creatinine 5.31 H, Est GFR (MDRD) Af Amer 10 L, Est GFR (MDRD) Non-Af 9 L, BUN/Creatinine Ratio 14.7, Glucose 413 H, Calcium 9.2, Troponin I < 0.015 10/03/18 18:20: Sodium 131 L, Potassium 4.4, Chloride 99, Carbon Dioxide 20.0 L, Anion Gap 12, BUN 77 H, Creatinine 5.05 H, Est GFR (MDRD) Af Amer 11 L, Est GFR (MDRD) Non-Af 9 L, BUN/Creatinine Ratio 15.2, Glucose 333 H, Calcium 8.9, Troponin I < 0.015, Triglycerides 508 H, Cholesterol 139, LDL Cholesterol TNP, VLDL Cholesterol TNP, HDL Cholesterol 9 L 10/03/18 18:20: Hemoglobin A1c 9.8 H 10/03/18 18:45: Urine Color Yellow, Urine Clarity Turbid, Urine pH 5.0, Ur Specific [place] 1.020, Urine Protein 100 H, Urine Glucose (UA) Normal, Urine Ketones 5 H, Urine Occult Blood 150 H, Urine Nitrite Positive H, Urine Bilirubin 1 H, Urine Urobilinogen 1 H, Ur Leukocyte Esterase 500 H Rhythm: Atrial fibrillation EKG: Atrial fibrillation with rapid ventricular response; nonspecific ST and T wave abnormality Assessment/Plan 1. Atrial fibrillation with rapid ventricular response The patient presents with findings of atrial fibrillation with rapid ventricular response. It is unclear how long this has been in process. It is also unclear whether this is the etiology for her CVA versus another etiology. At the present time she is being monitored. She is being treated with rate control therapy. She has received IV metoprolol x2. She is currently on IV amiodarone. She has demonstrated episodes of conversion to sinus rhythm. At the moment she will continue to be monitored. She will continue rate control therapy which will include oral beta-fritz therapy with adjustment as deemed appropriate. She will continue her antiarrhythmic therapy with IV amiodarone. Hopefully this will help with rate control and rhythm control. She will continue her type platelet therapy with aspirin. She is not on anticoagulant therapy at this time secondary to her CVA pending further neurologic evaluation. She will be scheduled for an echocardiogram to assess her atrial size as well as her ventricular size, wall motion, and systolic function. 2. Hypertension She states she has had a long-standing history of hypertension. She notes her blood pressure has been somewhat challenging to control. She will continue medical therapy as deemed appropriate. However at the moment attempt will be made to avoid significant hypotension that could exacerbate her CVA process. 3. Hypertriglyceridemia Her triglycerides are markedly elevated. This may be secondary to her diabetes mellitus. Thus at the moment attempt is being made to bring her hyperglycemia under better control. Her lipids will need to be followed. She may need lipid-lowering therapy. 4. Diabetes mellitus She will continue under the care of internal medicine. 5. DKA She has a history of DKA. She is being evaluated and cared for by internal medicine at this time. 6. Acute renal insufficiency This may be secondary to her hyperglycemia, etc. She will continue medical management deemed appropriate per internal medicine. Her renal function will need to be followed. 7. CVA She will continue evaluation care per internal medicine and neurology. Comment: The patient's case has been discussed reviewed with the patient as well as Dr. Lopez. This note was generated with [employer] dictation software. It may contain incorrect words, spelling, and punctuation that were not noted in checking the note before signing.
--- NOTE | 2018-10-03 20:52 | RAD_ITS ---
STUDY: X-RAY CHEST REASON FOR EXAM: Female, 68 years old. Hypertension. TECHNIQUE: Single AP portable view of the chest. COMPARISON: None. FINDINGS: Telemetry wires overlie the chest. The lungs are hypoexpanded. There is minimal bibasilar atelectasis. There is no acute infiltrate or mass. There is no demonstrated pleural abnormality. Normal size heart. Normal mediastinum and nevin. Normal visualized pulmonary arteries. Normal visualized aortic arch and descending thoracic aorta. Normal visualized thoracic spine. Normal visualized ribs, clavicles, and shoulders. There is no demonstrated abnormality of the visualized soft tissue structures of the upper abdomen. RAD/Chest 1 View (Portable) IMPRESSION: No acute cardiopulmonary disease. Electronically Signed: Sridhar Marinelli DO at 23:19 EDT Tel [phone], Service support ,
[2018-10-03 21:06] LABS: Bedside Glucose 216 mg/dL (70-110)
[2018-10-03 21:31] LABS: Bedside Glucose 191 mg/dL (70-110)
[2018-10-03 21:59] LABS: Hematocrit 30.2 % (37-47); Hemoglobin 10.1 g/dl (12.0-15.0); Mean Corp Hgb Conc 33.4 g/gl (32-36); Mean Corpuscular Hgb 25.6 pg (27.0-32.0); Mean Corpuscular Volume 76.6 fL (81-99); Mean Platelet Vol. 10.5 fl (6.2-12.0); Platelet Count 169 K/mm3 (150-450); RBC Distribution Width CV 16.3 % (11.6-14.6); RBC Distribution Width SD 46.3 fl (35.1-43.9); Red Blood Count 3.94 M/mm3 (4.2-5.4); White Blood Count 10.7 K/mm3 (4.4-11.0)
[2018-10-03 22:00] LABS: Scan Indicated on CBC? Y/N NO
[2018-10-03 22:04] LABS: International Normalized Ratio 1.3; Partial Thromboplast Time 34.4 Seconds (24.1-36.2); Prothrombin Time (Protime)PT. 16.4 SECONDS (11.7-14.9)
[2018-10-03 22:10] LABS: ALB/GLOB Ratio 0.5 RATIO (0.9-2.4); AST(SGOT) 16 U/L (15-37); Alanine Aminotransfer ALT/SGPT 24 U/L (13-56); Albumin, Serum 2.2 g/dL (3.2-5.0); Alkaline Phosphatase 117 U/L (45-117); Anion Gap 11 (5-15); BUN 76 mg/dL (7-18); BUN/Creat Ratio 15.1 RATIO (10-20); Calcium,Total 8.5 mg/dL (8.5-10.1); Chloride 101 mmol/L (98-107); Creatinine, Serum 5.02 mg/dL (0.55-1.02); EST Glomerular Filtration Rate 9 mL/min (>60); Est Glom Filt Rate - Afr Amer 11 mL/min (>60); Estimated Creatinine Clearance 9.12 ml/min; Globulin 4.5 g/dL (2.2-4.2); Glucose 191 mg/dL (74-106); Potassium 4.1 mmol/L (3.5-5.1); Protein, Total 6.7 g/dL (6.4-8.2); Sodium Level 132 mmol/L (136-145)
[2018-10-03 22:16] LABS: Bedside Glucose 158 mg/dL (70-110)
[2018-10-03 22:29] LABS: Lactic Acid 2.5 mmol/L (0.4-2.0)
[2018-10-03] MEDS: 0.9% Normal Saline 1,000 ML 999 ML IV (22:32)
[2018-10-03] MEDS: Atorvastatin Calcium 40 MG Tablet PO (23:26)
[2018-10-04] VITALS (28 sets, daily range): BP systolic 111–182; BP diastolic 60–80; PULSE 88–99; RESP 16–33; TEMP 36.4–37.6; O2SAT 86–98
[2018-10-04] MEDS: Vancomycin IV 1,000 MG/200 ML BAG 200 MG IV (00:05)
[2018-10-04 01:47] LABS: Reflex Lactate? Y
[2018-10-04 04:46] LABS: Absolute Lymphocyte Count 0.45 X10^3/ul (0.83-4.51); Absolute Neutrophil Count 8.6 X10^3/uL (2.0-7.7); Basophil# 0.01 X10^3/uL; Basophil% 0.1 % (0-1); Eosinophil# 0.14 X10^3/uL; Eosinophils% 1.4 % (0-5); Hemoglobin 9.6 g/dl (12.0-15.0); Lymphocyte # 0.45 X10^3/ul (4.0); Lymphocyte % 4.5 % (19-41); Mean Corp Hgb Conc 33.1 g/gl (32-36); Mean Corpuscular Hgb 25.5 pg (27.0-32.0); Mean Corpuscular Volume 76.9 fL (81-99); Mean Platelet Vol. 11.4 fl (6.2-12.0); Monocyte# 0.79 X10^3/uL; Monocyte% 7.9 % (0-10); Neutrophil # 8.55 X10^3/uL (2.7-7.7); Neutrophil % 85.6 % (47-70); Platelet Count 156 K/mm3 (150-450); RBC Distribution Width CV 16.3 % (11.6-14.6); RBC Distribution Width SD 43.7 fl (35.1-43.9); Red Blood Count 3.77 M/mm3 (4.2-5.4)
[2018-10-04 04:47] LABS: Differential Indicated SCAN CRITERIA MET; POSITIVE COUNT NO; POSITIVE DIFFERENTIAL YES; POSITIVE MORPHOLOGY NO
[2018-10-04 04:57] LABS: Anion Gap 11 (5-15); BUN 76 mg/dL (7-18); BUN/Creat Ratio 15.5 RATIO (10-20); Calcium,Total 8.2 mg/dL (8.5-10.1); Chloride 105 mmol/L (98-107); Creatinine, Serum 4.91 mg/dL (0.55-1.02); EST Glomerular Filtration Rate 9 mL/min (>60); Est Glom Filt Rate - Afr Amer 11 mL/min (>60); Estimated Creatinine Clearance 9.32 ml/min; Glucose 249 mg/dL (74-106); Magnesium 2.1 mg/dL (1.6-2.6); Phosphorus 4.1 mg/dL (2.5-4.9); Potassium 4.7 mmol/L (3.5-5.1); Sodium Level 135 mmol/L (136-145)
--- NOTE | 2018-10-04 05:55 | EKG12_ITS ---
Test Reason : AM EKG Blood Pressure : / mmHG Vent. Rate : 090 BPM Atrial Rate : 090 BPM P-R Int : 152 ms QRS Dur : 086 ms QT Int : 358 ms P-R-T Axes : 059 048 005 degrees QTc Int : 437 ms Normal sinus rhythm Normal ECG When compared with ECG of 03-OCT-2018 18:10, MANUAL COMPARISON REQUIRED, DATA IS UNCONFIRMED Confirmed by SOCORRO GRACE ([id number]), fashion editor RADHA HOPKINS ([id number]) on 10/11/2018 1:00:23 PM Referred By: KRISHNA Confirmed By:LAURA GRACE
--- NOTE | 2018-10-04 06:47 | CON.PCM_ITS ---
Reason for Consult Date of Consultation: 10/04/18 Reason for Consultation: DKA History of Present Illness: The patient is a 68-year-old female, with a history as outlined below, who presented to the emergency department on October 03 with complaints of low back pain. The patient was subsequently found to be in atrial fibrillation with a rapid ventricular rate. In addition, the patient was also noted to be exhibiting dysarthric speech. On presentation to the emergency department, the patient was initially noted to be afebrile and hemodynamically stable. She was, nevertheless, tachycardic with heart rates in the 150s. Initial laboratory evaluation revealed an elevated white blood cell count of 14,000. INR was noted to be 1.4. Chemistry profile was notable for a sodium of 129, chloride of 95, carbon of 19 and creatinine of 5.31. Glucose was elevated to 413. The patient did have a hemoglobin A1c level of 9.8. Troponin was negative. The patient does have a small serum acetone level. Urinalysis was positive for nitrites and leukocyte esterase. CT head revealed findings suggestive of a lacunar infarct of the right temporal lobe. There was also evidence of decreased attenuation in the posterior right temporoparietal lobe, which could be related to subacute ischemia. In the emergency department, the patient was noted to have an NIH score of 1. Her dysarthric speech was noted to have been present for greater than 24 hours. She was provided with 1 L of normal saline and started on a continuous insulin drip. She was then admitted to the medical intensive care unit for ongoing management. Overnight, the patient was evaluated by cardiology. Medical management was un dertaken to control her underlying atrial arrhythmia. The patient received an additional 1.5 L of fluid, after which time, she was noted to have spontaneously converted back to normal sinus rhythm at approximately 11 PM. The patient's continuous insulin infusion was subsequently discontinued. Her creatinine is slowly improving. Renal ultrasound was largely unremarkable. A plain film chest x-ray obtained last evening revealed no acute cardiopulmonary process. The patient remains hemodynamically stable and is requiring 2 L/min of supplemental oxygen via nasal cannula to maintain appropriate saturations. Past Medical History Past Medical History (Chronic Problems): Chronic Problems (Last Reviewed 07/11/18 @ 14:55 by Dede Kasper) HTN (hypertension) (Chronic) Diabetes mellitus (Chronic) Medical History: Medical History (Last Reviewed 07/11/18 @ 14:55 by Dede Kasper) Abnormal mammogram of right breast (Acute) R92.8 Abnormal mammogram of right breast R92.8 Arthritis M19.90 Depression with anxiety F41.8 Diabetes E11.9 Sleep apnea G47.30 Hypertension I10 Allergies fosinopril [From Monopril] Allergy (Unknown, Verified 10/03/18 14:25) unknown pioglitazone Adverse Reaction (Verified 10/03/18 14:25) Other Home Medications: Ambulatory Orders Medication Instructions Recorded aspirin 81 mg chewable tablet 81 mg PO DAILY 07/11/18 glimepiride 4 mg tablet 4 mg PO BID tab 07/11/18 losartan 50 mg tablet 50 mg PO BID tab 07/11/18 metformin 1,000 mg tablet 1,000 mg PO BID 07/11/18 naproxen 500 mg tablet 500 mg PO BID 07/11/18 oxybutynin chloride ER 15 mg 15 mg PO DAILY 07/11/18 tablet,extended release 24 hr sertraline 100 mg tablet 100 mg PO DAILY 07/11/18 sitagliptin 100 mg tablet 100 mg PO DAILY 07/11/18 Acetaminophen [Tylenol Extra 500 mg PO Q6H PRN PRN 10/03/18 Strength] Cyclobenzaprine HCl 5 - 10 mg PO TID PRN PRN 10/03/18 Metoprolol Tartrate [Lopressor 25 mg PO BID 10/03/18 (beta fritz)] Oxycodone HCl/Acetaminophen 1 tab PO Q6H PRN PRN 10/03/18 [Oxycodone-Acetaminophen 5-325] Simvastatin [Zocor] 20 mg PO QHS 10/03/18 Surgical History: Surgical History (Last Updated 07/11/18 @ 14:55 by Dede Kasper) History of back surgery Z98.890 History of carpal tunnel release Z98.890 History of hysterectomy Z90.710 Psychiatric History: No pertinent psych hx 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 Lives: Alone Smoking Status: Never smoker Tobacco Use: Non-smoker Alcohol: None - *Family History Maternal Family History: Family History (Last Updated 07/11/18 @ 14:56 by Dede Kasper) Father Diabetes Hypertension High cholesterol Review of Systems Constitutional: Denies: Chills, Fever Eyes: Denies: Blurred vision, Double vision HEENT: Denies: Head Aches, Sinus Congestion, Sinus Drainage Cardiovascular: Denies: Chest Pain, Palpitations Respiratory: Denies: Cough, Shortness of breath at rest, Sputum production Gastrointestinal: Denies: Abdominal Pain, Nausea, Vomiting Genitourinary: Denies: Dysuria, Frequency Musculoskeletal: Reports: Back Pain Skin: Denies: Rash, Wounds Neurological: Reports: Change in Speech, Slurred speech Psychiatric: Reports: Depression Hematologic/ Lymphatic: Denies: Easy Bruising, Easy Bleeding Patient Problems: Active and Suspected Problems (Last Reviewed 07/11/18 @ 14:55 by Dede Kasper) Atrial fibrillation (Acute) CVA (cerebral vascular accident) (Suspected) DKA (diabetic ketoacidoses) (Acute) Renal insufficiency (Acute) Hypertriglyceridemia (Acute) Objective: The patient's most recent lab work, culture data and imaging studies have all been personally reviewed. - Physical Exam General: Alert, Cooperative, No apparent distress HEENT: Atraumatic, PERRLA, Normocephalic Oral: Dry Mucosa Neck: Supple, No Nodes, Trachea Midline Lungs: Normal air movement, No rhonchi, No wheeze, No rales Cardiovascular: Regular rate, Regular Rhythm, Normal S1, Normal S2, No murmurs, - - In normal sinus rhythm on telemetry Abdomen: Bowel Sounds Present, Soft, Non Tender, Obese Extremities: No clubbing, No cyanosis, Edema - Trace Skin: No breakdown Musculoskeletal: No Tenderness to Palpation of Joints or Extremities, No Muscle Wasting Lymphatic: No Cervical, Supraclavicular, or Inguinal Adenopathy Neurological: Cranial nerves II-XII grossly intact, Neuro grossly intact Psych/Mental Status: Normal Affect, Appropriate Vital Signs Temp Pulse Resp BP Pulse Ox 98.5 F 91 26 H 154/68 H 93 10/04/18 06:00 10/04/18 06:00 10/04/18 06:00 10/04/18 06:00 10/04/18 06:00 Oxygen Flow Rate (L/min) 2 Oxygen Delivery Method Nasal Cannula Weight: 238 lb 5.115 oz Body Mass Index (BMI) 40.6 Finger Stick Blood Glucose 158 Intake and Output for Last 24 Hours 10/02/18 10/03/18 10/04/18 23:59 23:59 23:59 Intake Total 3010 / 3010 Output Total 100 / 100 Balance 2910 / 2910 Laboratory Tests Past 24 Hrs 10/03/18 10/03/18 10/03/18 14:45 14:45 14:45 WBC 14.0 H RBC 4.36 Hgb 11.3 L Hct 34.2 L MCV 78.4 L MCH 25.9 L MCHC 33.0 RDW 16.9 H RDW Differential 48.4 H Plt Count 188 MPV 11.1 Immature Gran % (Auto) 0.200 Neut % (Auto) 89.2 H Lymph % (Auto) 3.7 L [place] % (Auto) 6.3 Eos % (Auto) 0.5 Baso % (Auto) 0.1 Absolute Neuts (auto) 12.5 H Absolute Lymphs (auto) 0.52 L Total Counted Not Reportable PT Cancelled INR Cancelled APTT Cancelled Sodium Cancelled Potassium Cancelled Chloride Cancelled Carbon Dioxide Cancelled Anion Gap Cancelled BUN Cancelled Creatinine Cancelled Estim Creat Clear Calc Cancelled Est GFR (MDRD) Af Amer Cancelled Est GFR (MDRD) Non-Af Cancelled BUN/Creatinine Ratio Cancelled Glucose Cancelled Hemoglobin A1c Lactic Acid Calcium Cancelled Phosphorus Magnesium Total Bilirubin AST ALT Alkaline Phosphatase Total Creatine Kinase Troponin I Cancelled Total Protein Albumin Globulin Albumin/Globulin Ratio Triglycerides Cholesterol LDL Cholesterol VLDL Cholesterol HDL Cholesterol Urine Color Urine Clarity Urine pH Ur Specific [place] Urine Protein Urine Glucose (UA) Urine Ketones Urine Occult Blood Urine Nitrite Urine Bilirubin Urine Urobilinogen Ur Leukocyte Esterase Ur Random Sodium Urine Creatinine Acetone Level 10/03/18 10/03/18 10/03/18 15:07 15:07 15:40 WBC RBC Hgb Hct MCV MCH MCHC RDW RDW Differential Plt Count MPV Immature Gran % (Auto) Neut % (Auto) Lymph % (Auto) [place] % (Auto) Eos % (Auto) Baso % (Auto) Absolute Neuts (auto) Absolute Lymphs (auto) Total Counted PT 17.2 H INR 1.4 APTT 33.4 Sodium 129 L Potassium 4.6 Chloride 95 L Carbon Dioxide 19.0 L Anion Gap 15 BUN 78 H Creatinine 5.31 H Estim Creat Clear Calc 8.62 Est GFR (MDRD) Af Amer 10 L Est GFR (MDRD) Non-Af 9 L BUN/Creatinine Ratio 14.7 Glucose 413 H Hemoglobin A1c Lactic Acid Calcium 9.2 Phosphorus Magnesium Total Bilirubin AST ALT Alkaline Phosphatase Total Creatine Kinase Troponin I < 0.015 Total Protein Albumin Globulin Albumin/Globulin Ratio Triglycerides Cholesterol LDL Cholesterol VLDL Cholesterol HDL Cholesterol Urine Color Urine Clarity Urine pH Ur Specific [place] Urine Protein Urine Glucose (UA) Urine Ketones Urine Occult Blood Urine Nitrite Urine Bilirubin Urine Urobilinogen Ur Leukocyte Esterase Ur Random Sodium Urine Creatinine Acetone Level SMALL H 10/03/18 10/03/18 10/03/18 18:20 18:20 18:45 WBC RBC Hgb Hct MCV MCH MCHC RDW RDW Differential Plt Count MPV Immature Gran % (Auto) Neut % (Auto) Lymph % (Auto) [place] % (Auto) Eos % (Auto) Baso % (Auto) Absolute Neuts (auto) Absolute Lymphs (auto) Total Counted PT INR APTT Sodium 131 L Potassium 4.4 Chloride 99 Carbon Dioxide 20.0 L Anion Gap 12 BUN 77 H Creatinine 5.05 H Estim Creat Clear Calc 9.06 Est GFR (MDRD) Af Amer 11 L Est GFR (MDRD) Non-Af 9 L BUN/Creatinine Ratio 15.2 Glucose 333 H Hemoglobin A1c 9.8 H Lactic Acid Calcium 8.9 Phosphorus Magnesium Total Bilirubin AST ALT Alkaline Phosphatase Total Creatine Kinase 49 Troponin I < 0.015 Total Protein Albumin Globulin Albumin/Globulin Ratio Triglycerides 508 H Cholesterol 139 LDL Cholesterol TNP VLDL Cholesterol TNP HDL Cholesterol 9 L Urine Color Yellow Urine Clarity Turbid Urine pH 5.0 Ur Specific [place] 1.020 Urine Protein 100 H Urine Glucose (UA) Normal Urine Ketones 5 H Urine Occult Blood 150 H Urine Nitrite Positive H Urine Bilirubin 1 H Urine Urobilinogen 1 H Ur Leukocyte Esterase 500 H Ur Random Sodium Urine Creatinine Acetone Level 10/03/18 10/03/18 10/03/18 18:45 18:45 21:00 WBC RBC Hgb Hct MCV MCH MCHC RDW RDW Differential Plt Count MPV Immature Gran % (Auto) Neut % (Auto) Lymph % (Auto) [place] % (Auto) Eos % (Auto) Baso % (Auto) Absolute Neuts (auto) Absolute Lymphs (auto) Total Counted PT INR APTT Sodium 132 L Potassium 4.1 Chloride 101 Carbon Dioxide 20.0 L Anion Gap 11 BUN 76 H Creatinine 5.02 H Estim Creat Clear Calc 9.12 Est GFR (MDRD) Af Amer 11 L Est GFR (MDRD) Non-Af 9 L BUN/Creatinine Ratio 15.1 Glucose 191 H Hemoglobin A1c Lactic Acid Calcium 8.5 Phosphorus Magnesium Total Bilirubin 0.80 AST 16 ALT 24 Alkaline Phosphatase 117 Total Creatine Kinase Troponin I < 0.015 Total Protein 6.7 Albumin 2.2 L Globulin 4.5 H Albumin/Globulin Ratio 0.5 L Triglycerides Cholesterol LDL Cholesterol VLDL Cholesterol HDL Cholesterol Urine Color Urine Clarity Urine pH Ur Specific [place] Urine Protein Urine Glucose (UA) Urine Ketones Urine Occult Blood Urine Nitrite Urine Bilirubin Urine Urobilinogen Ur Leukocyte Esterase Ur Random Sodium 40 Urine Creatinine 170.00 Acetone Level 10/03/18 10/03/18 10/03/18 21:00 21:00 21:30 WBC 10.7 RBC 3.94 L Hgb 10.1 L Hct 30.2 L MCV 76.6 L MCH 25.6 L MCHC 33.4 RDW 16.3 H RDW Differential 46.3 H Plt Count 169 MPV 10.5 Immature Gran % (Auto) Neut % (Auto) Lymph % (Auto) [place] % (Auto) Eos % (Auto) Baso % (Auto) Absolute Neuts (auto) Absolute Lymphs (auto) Total Counted PT 16.4 H INR 1.3 APTT 34.4 Sodium Potassium Chloride Carbon Dioxide Anion Gap BUN Creatinine Estim Creat Clear Calc Est GFR (MDRD) Af Amer Est GFR (MDRD) Non-Af BUN/Creatinine Ratio Glucose Hemoglobin A1c Lactic Acid 2.5 H Calcium Phosphorus Magnesium Total Bilirubin AST ALT Alkaline Phosphatase Total Creatine Kinase Troponin I Total Protein Albumin Globulin Albumin/Globulin Ratio Triglycerides Cholesterol LDL Cholesterol VLDL Cholesterol HDL Cholesterol Urine Color Urine Clarity Urine pH Ur Specific [place] Urine Protein Urine Glucose (UA) Urine Ketones Urine Occult Blood Urine Nitrite Urine Bilirubin Urine Urobilinogen Ur Leukocyte Esterase Ur Random Sodium Urine Creatinine Acetone Level 10/04/18 10/04/18 10/04/18 04:20 04:20 04:20 WBC 10.0 RBC 3.77 L Hgb 9.6 L Hct 29.0 L MCV 76.9 L MCH 25.5 L MCHC 33.1 RDW 16.3 H RDW Differential 43.7 Plt Count 156 MPV 11.4 Immature Gran % (Auto) 0.500 Neut % (Auto) 85.6 H Lymph % (Auto) 4.5 L [place] % (Auto) 7.9 Eos % (Auto) 1.4 Baso % (Auto) 0.1 Absolute Neuts (auto) 8.6 H Absolute Lymphs (auto) 0.45 L Total Counted Not Reportable PT INR APTT Sodium 135 L Potassium 4.7 Chloride 105 Carbon Dioxide 19.0 L Anion Gap 11 BUN 76 H Creatinine 4.91 H Estim Creat Clear Calc 9.32 Est GFR (MDRD) Af Amer 11 L Est GFR (MDRD) Non-Af 9 L BUN/Creatinine Ratio 15.5 Glucose 249 H Hemoglobin A1c Lactic Acid 1.0 Calcium 8.2 L Phosphorus 4.1 Magnesium 2.1 Total Bilirubin AST ALT Alkaline Phosphatase Total Creatine Kinase Troponin I Total Protein Albumin Globulin Albumin/Globulin Ratio Triglycerides Cholesterol LDL Cholesterol VLDL Cholesterol HDL Cholesterol Urine Color Urine Clarity Urine pH Ur Specific [place] Urine Protein Urine Glucose (UA) Urine Ketones Urine Occult Blood Urine Nitrite Urine Bilirubin Urine Urobilinogen Ur Leukocyte Esterase Ur Random Sodium Urine Creatinine Acetone Level POC Glucose 10/03/18 10/03/18 10/03/18 22:12 21:04 20:06 POC Glucose 158 H 191 H 216 H 10/03/18 10/03/18 10/03/18 19:02 17:52 17:18 POC Glucose 337 H 356 H 328 H 10/03/18 15:05 POC Glucose 421 H Clinical Impression(s) from Imaging Studies Brain CT 10/03/18 14:45 IMPRESSION: Findings suggestive of a lacunar infarct in the insular cortex of the right temporal lobe. Decreased attenuation in the posterior right temporal parietal lobe. Subacute ischemia should BE ruled out. Electronically Signed: Jordan Jones, at 15:09 EDT , Service support , Renal Ultrasound 10/03/18 17:59 IMPRESSION: Normal ultrasound of the kidneys. Electronically Signed: Sridhar Marinelli DO at 23:20 EDT Tel [phone], Service support , Chest X-Ray 10/03/18 20:52 IMPRESSION: No acute cardiopulmonary disease. Electronically Signed: Sridhar Marinelli DO at 23:19 EDT Tel [phone], Service support , Assessment/Plan Active and Suspected Problems (Last Reviewed 07/11/18 @ 14:55 by Dede Kasper) Atrial fibrillation (Acute) CVA (cerebral vascular accident) (Suspected) DKA (diabetic ketoacidoses) (Acute) Renal insufficiency (Acute) Hypertriglyceridemia (Acute) RECOMMENDATIONS: 1. Continue medical management of the patient's atrial arrhythmia per cardiology recommendations. 2. Start basal insulin regimen and continue sliding scale coverage. 3. Obtain MRI per neurology recommendations. 4. Await echocardiogram. 5. Continue nocturnal CPAP therapy per home regimen. 6. Consider removal of Butt catheter today. 7. Wean supplemental oxygen to maintain saturations at or above 90%. 8. Encourage incentive spirometer use and mobilize patient as tolerated. IMPRESSIONS: 1. Acute ischemic CVA Clinical concern for ischemic CVA on CT head. Neurology is following. Plans for MRI today. Continue to monitor neurological status. Allow for permissive hypertension for now. Echocardiogram is pending. Physical therapy to evaluate patient today. Continue statin therapy. 2. New onset atrial fibrillation with RVR Cardiology is following to assist with medical management. 3. Diabetic ketoacidosis Resolved overnight. Recommend starting basal insulin regimen and continuing sliding scale coverage. 4. Acute kidney injury Likely prerenal in etiology. Appears to be responding favorably to IV volume resuscitation. Continue to monitor urine output. No indication for renal replacement therapy. 5. Personal history of obstructive sleep apnea Continue nocturnal CPAP therapy per home regimen. The patient regularly follows with Dr. Raymond. 6. Possible cystitis The patient did have a urinalysis on presentation which was suggestive of infection. Urine culture is currently pending. Can consider empiric antimicrobials, pending culture results. 7. Microcytic anemia/diabetes mellitus/depression/hypertension/hyperlipidemia/obesity Complicate care, management, recovery and prognosis. Continue to hold home antihypertensive regimen. Physical therapy to evaluate patient today. This note was generated with [employer] dictation software. It may contain incorrect words, spelling, and punctuation that were not noted in checking the note before signing. DISPOSITION: The patient is medically stable for transfer out of the intensive care unit. Code Visit Inpatient E&M: 85223 Init Hosp L3
--- NOTE | 2018-10-04 07:00 | ECHOD_ITS ---
Reason For Study: [email or web address] Procedure This was a 2D Doppler, Color Flow transthoracic echocardiogram. Exam performed portable in ICU/CCU. Left Ventricle Normal size and thickness. The estimated ejection fraction is 75 %. Right Ventricle Normal size and thickness. Normal systolic function. Atria The left atrium is moderately enlarged. Normal right atrium. Normal atrial septum. Mitral Valve Moderate diffuse mitral valve thickening. Moderate mitral annular calcification extending into the posterior leaflet. Mild mitral valve stenosis. Peak transmitral valve gradient 10 mmHg. Mean transmitral valve gradient 4 mmHg. Tricuspid Valve Normal tricuspid valve. Mild (1+) tricuspid valve insufficiency. Right ventricular systolic pressure estimated to be 48 mmHg. Mild pulmonary hypertension. Aortic Valve Trisinus/trileaflet aortic valve. Mild diffuse aortic valve thickening. Mild aortic stenosis. Pulmonic Valve The pulmonic valve is not well visualized. Great Vessels Normal aortic root. Normal arch. Normal inferior vena cava. Inferior vena cava collapse with sniff. Pericardium/Pleural No pericardial effusion. MMode/2D Measurements & Calculations LVIDd: 4.6 cm IVSd: 1.0 cm LVOT diam: 2.1 cm LVIDs: 2.9 cm LVPWd: 1.1 cm LVOT area: 3.5 cm2 RVDd: 3.2 cm FS: 36.2 % Ao root diam: 3.2 cm LAV(MOD-bp): 87.9 ml LA A4 area: 24.9 cm2 LAV(MOD-bp) Indexed: 42.9 ml/m2 LAV(MOD-sp2): 82.5 ml LAV(MOD-sp4): 84.8 ml LA dimension(2D): 3.5 cm RA A4 area: 15.3 cm2 Time Measurements MV dec time: 0.19 sec Doppler Measurements & Calculations MV E max bridger: 147.2 cm/sec Lat Peak E' Bridger: 11.6 cm/sec Med Peak E' Bridger: 9.9 cm/sec MV A max bridger: 120.1 cm/sec E/E' lat: 12.7 E/E' med: 14.9 MV E/A: 1.2 MV V2 max: 158.7 cm/sec Ao V2 max: 204.1 cm/sec LV V1 max: 131.9 cm/sec MV max P.1 mmHg Ao max P.7 mmHg LV V1 max P.2 mmHg MV V2 mean: 96.8 cm/sec Ao V2 mean: 139.6 cm/sec LV V1 mean P.7 mmHg MV mean P.2 mmHg Ao mean P.5 mmHg LV V1 mean: 104.7 cm/sec MV V2 VTI: 36.2 cm Ao V2 VTI: 33.2 cm LV V1 VTI: 26.7 cm MVA(VTI): 2.6 cm2 RYAN(I,D): 2.8 cm2 RYAN(V,D): 2.2 cm2 SV(LVOT): 92.6 ml PA V2 max: 92.7 cm/sec TR max bridger: 328.4 cm/sec TR max P.1 mmHg MV P1/2t-pr_phl: 51.8 msec Interpretation Summary The estimated ejection fraction is 75 %. The left atrium is moderately enlarged. Mild mitral valve stenosis. Mild (1+) tricuspid valve insufficiency. Right ventricular systolic pressure estimated to be 48 mmHg. Mild pulmonary hypertension. Mild aortic stenosis. Pt appears to be in NSR. There is no comparison study available. Ordering Physician: Kisha Lopez Referring Physician: Lesley Yoder Performed By: Dede Martino, PRUDENCIO, RVT
--- NOTE | 2018-10-04 08:21 | PN.CARD_ITS ---
Subjectve: The patient is awake and alert. She states she feels better overall. Objective: Vital Signs Temp Pulse Resp BP Pulse Ox 98.4 F 94 23 H 149/73 H 94 10/04/18 08:00 10/04/18 08:00 10/04/18 08:00 10/04/18 08:00 10/04/18 08:00 Oxygen Flow Rate (L/min) 2 Oxygen Delivery Method Nasal Cannula Weight: 238 lb 5.115 oz Body Mass Index (BMI) 40.6 Finger Stick Blood Glucose 158 Intake and Output for Last 24 Hours 10/02/18 10/03/18 10/04/18 23:59 23:59 23:59 Intake Total 4150.8 / 4150.8 Output Total 250 / 250 Balance 3900.8 / 3900.8 General: Awake, Alert, Oriented x 3, Cooperative, No Acute Distress HEENT: Atraumatic, Normocephalic, PERRL, EOMI, Sclera Non Icteric Oral: Moist Mucosa Neck: Supple, Good ROM, No JVD Lungs: Clear to auscultation Cardiovascular: Regular Rhythm, Normal S1, Normal S2 Murmur Murmur: Grade 2/6, Soft, Mid Systolic, LLSB, LVOT, Sternal Notch Vascular: No Carotid Bruits Abdomen: Bowel Sounds Present, Soft, Non Tender Extremities: Trace RLE Edema, Trace LLE Edema Psych/Mental Status: Appropriate 10/03/18 14:45: WBC 14.0 H, RBC 4.36, Hgb 11.3 L, Hct 34.2 L, MCV 78.4 L, MCH 25.9 L, MCHC 33.0, RDW 16.9 H, RDW Differential 48.4 H, Plt Count 188, MPV 11.1, Immature Gran % (Auto) 0.200, Neut % (Auto) 89.2 H, Lymph % (Auto) 3.7 L, [place] % (Auto) 6.3, Eos % (Auto) 0.5, Baso % (Auto) 0.1, Absolute Neuts (auto) 12.5 H, Total Counted Not Reportable 10/03/18 14:45: PT Cancelled, INR Cancelled, APTT Cancelled 10/03/18 14:45: Sodium Cancelled, Potassium Cancelled, Chloride Cancelled, Carbon Dioxide Cancelled, Anion Gap Cancelled, BUN Cancelled, Creatinine Cancelled, Est GFR (MDRD) Af Amer Cancelled, Est GFR (MDRD) Non-Af Cancelled, BUN/Creatinine Ratio Cancelled, Glucose Cancelled, Calcium Cancelled, Troponin I Cancelled 10/03/18 15:07: PT 17.2 H, INR 1.4, APTT 33.4 10/03/18 15:07: Sodium 129 L, Potassium 4.6, Chloride 95 L, Carbon Dioxide 19.0 L, Anion Gap 15, BUN 78 H, Creatinine 5.31 H, Est GFR (MDRD) Af Amer 10 L, Est GFR (MDRD) Non-Af 9 L, BUN/Creatinine Ratio 14.7, Glucose 413 H, Calcium 9.2, Troponin I < 0.015 10/03/18 18:20: Sodium 131 L, Potassium 4.4, Chloride 99, Carbon Dioxide 20.0 L, Anion Gap 12, BUN 77 H, Creatinine 5.05 H, Est GFR (MDRD) Af Amer 11 L, Est GFR (MDRD) Non-Af 9 L, BUN/Creatinine Ratio 15.2, Glucose 333 H, Calcium 8.9, Troponin I < 0.015, Triglycerides 508 H, Cholesterol 139, LDL Cholesterol TNP, VLDL Cholesterol TNP, HDL Cholesterol 9 L 10/03/18 18:20: Hemoglobin A1c 9.8 H 10/03/18 18:45: Urine Color Yellow, Urine Clarity Turbid, Urine pH 5.0, Ur Specific [place] 1.020, Urine Protein 100 H, Urine Glucose (UA) Normal, Urine Ketones 5 H, Urine Occult Blood 150 H, Urine Nitrite Positive H, Urine Bilirubin 1 H, Urine Urobilinogen 1 H, Ur Leukocyte Esterase 500 H 10/03/18 21:00: Sodium 132 L, Potassium 4.1, Chloride 101, Carbon Dioxide 20.0 L , Anion Gap 11, BUN 76 H, Creatinine 5.02 H, Est GFR (MDRD) Af Amer 11 L, Est GFR (MDRD) Non-Af 9 L, BUN/Creatinine Ratio 15.1, Glucose 191 H, Calcium 8.5, Total Bilirubin 0.80, Troponin I < 0.015 10/03/18 21:00: WBC 10.7, RBC 3.94 L, Hgb 10.1 L, Hct 30.2 L, MCV 76.6 L, MCH 25.6 L, MCHC 33.4, RDW 16.3 H, RDW Differential 46.3 H, Plt Count 169, MPV 10.5 10/03/18 21:00: PT 16.4 H, INR 1.3, APTT 34.4 10/03/18 21:30: Lactic Acid 2.5 H 10/04/18 04:20: Lactic Acid 1.0 10/04/18 04:20: WBC 10.0, RBC 3.77 L, Hgb 9.6 L, Hct 29.0 L, MCV 76.9 L, MCH 25.5 L, MCHC 33.1, RDW 16.3 H, RDW Differential 43.7, Plt Count 156, MPV 11.4, Immature Gran % (Auto) 0.500, Neut % (Auto) 85.6 H, Lymph % (Auto) 4.5 L, [place] % (Auto) 7.9, Eos % (Auto) 1.4, Baso % (Auto) 0.1, Absolute Neuts (auto) 8.6 H, Total Counted Not Reportable 10/04/18 04:20: Sodium 135 L, Potassium 4.7, Chloride 105, Carbon Dioxide 19.0 L , Anion Gap 11, BUN 76 H, Creatinine 4.91 H, Est GFR (MDRD) Af Amer 11 L, Est GFR (MDRD) Non-Af 9 L, BUN/Creatinine Ratio 15.5, Glucose 249 H, Calcium 8.2 L, Phosphorus 4.1, Magnesium 2.1 Rhythm: sinus rhythm EKG: sinus rhythm ECHO: pending Medical Necessity - Tobacco Use Smoking Status: Never smoker Tobacco Use: Non-smoker Assessment/Plan 1. Atrial fibrillation with rapid ventricular response The patient presents with findings of atrial fibrillation with rapid ventricular response. It is unclear how long this has been in process. It is also unclear whether this is the etiology for her CVA versus another etiology. At the present time she is being monitored. She is being treated with rate control therapy. She is currently on IV amiodarone. She has converted to sinus rhythm. The IV amiodarone will be placed on hold so that she may proceed to MRI. She will be started on oral amiodarone therapy. She will continue her antiplatelet therapy with aspirin. She is not on anticoagulant therapy at this time secondary to her CVA pending further neurologic evaluation. She will be scheduled for an echocardiogram to assess her atrial size as well as her ventricular size, wall motion, and systolic function. 2. Hypertension She states she has had a long-standing history of hypertension. She notes her blood pressure has been somewhat challenging to control. She will continue medical therapy as deemed appropriate. However at the moment attempt will be made to avoid significant hypotension that could exacerbate her CVA process. 3. Hypertriglyceridemia Her triglycerides are markedly elevated. This may be secondary to her diabetes mellitus. Thus at the moment attempt is being made to bring her hyperglycemia under better control. Her lipids will need to be followed. She may need lipid- lowering therapy. 4. Diabetes mellitus She will continue under the care of internal medicine. 5. DKA She has a history of DKA. She is being evaluated and cared for by internal medicine at this time. 6. Acute renal insufficiency Her Cr level is somewhat improved. This may be secondary to her hyperglycemia, etc. She will continue medical management deemed appropriate per internal medicine. 7. CVA She will continue evaluation care per internal medicine and neurology. Comment: The patient's case has been discussed reviewed with the patient as well as Dr. Lopez. This note was generated with [employer] dictation software. It may contain incorrect words, spelling, and punctuation that were not noted in checking the note before signing.
[2018-10-04] MEDS: Metoprolol Tartrate 25 MG Tablet PO ×2 (08:26→21:26)
[2018-10-04] MEDS: Insulin Lispro 100 UNIT/ML INSULN.PEN SC ×4 (08:27→21:22)
[2018-10-04] MEDS: Tolterodine Tartrate 4 MG CAP.SA PO (08:30)
[2018-10-04] MEDS: Aspirin 81 MG TAB.CHEW PO (08:30)
[2018-10-04] MEDS: Sertraline 100 MG Tablet PO (08:30)
--- NOTE | 2018-10-04 08:30 | MRI_ITS ---
STUDY: MRA OF THE HEAD WITHOUT CONTRAST REASON FOR EXAM: Female, 68 years old. CVA. Slurred speech TECHNIQUE: 3-D [id number] (TOF) imaging was performed with MIPs. The study was performed unenhanced. COMPARISON: None. FINDINGS: Normal bilateral petrous carotid arteries. Normal right cavernous carotid artery with a normal supraclinoid bifurcation. Normal left cavernous carotid artery with a normal supraclinoid bifurcation. Normal right A1 segments of the anterior cerebral artery. Normal left A1 segments of the anterior cerebral artery. Normal intact anterior communicating artery (ACOM). Normal bilateral A2 segments of the anterior cerebral arteries. Normal right M1 and M2 segments of the middle cerebral arteries, with a normal M1 bifurcation. Normal left M1 and M2 segments of the middle cerebral arteries, with a normal M1 bifurcation. Normal right posterior communicating artery (PCOM). Normal left posterior communicating artery (PCOM). A dominant right vertebral artery. Normal basilar artery with a normal basilar bifurcation. The visualized bilateral superior cerebellar (SCA) arteries are normal. Normal bilateral P1, P2 and visualized P3 segments of the posterior cerebral arteries. There is no demonstrated aneurysm of the [place]. There is no major vessel occlusion or hemodynamically significant stenosis. There is no demonstrated abnormality of the visualized brain. MRI/MRA Head ONLY without Contrast IMPRESSION: Normal MRA of the head except for a dominant right vertebral artery Electronically Signed: Raffy Pineda MD at 2:21 EDT Tel , Service support ,
--- NOTE | 2018-10-04 08:30 | MRI_ITS ---
STUDY: MRA NECK WITHOUT CONTRAST REASON FOR EXAM: Female, 68 years old. CVA. Slurred speech. TECHNIQUE: Source images were obtained, MIPs were performed. The study was performed unenhanced. COMPARISON: None. FINDINGS: RIGHT CAROTID ARTERIES: Normal right common carotid artery (CCA). Normal right common carotid bulb. Normal origin of the right internal carotid (ICA) artery without a hemodynamically significant stenosis. Normal visualized cervical portion of the right internal carotid artery. Normal origin of the right external carotid artery (ECA). LEFT CAROTID ARTERIES: Normal left common carotid artery (CCA). Normal left common carotid bulb. Normal origin of the left internal carotid (ICA) artery without a hemodynamically significant stenosis. Normal visualized cervical portion of the left internal carotid artery. Normal origin of the left external carotid artery (ECA). VERTEBRAL ARTERIES: Normal antegrade flow within the bilateral vertebral artery without a hemodynamically significant stenosis. MRI/MRA Neck without Contrast IMPRESSION: Normal bilateral cervical carotid and vertebral arteries. Electronically Signed: Raffy Pineda MD at 2:19 EDT Tel , Service support ,
--- NOTE | 2018-10-04 08:30 | MRI_ITS ---
STUDY: MRI BRAIN WITHOUT CONTRAST REASON FOR EXAM: Female, 68 years old. CVA. Slurred speech TECHNIQUE: Standardized multiplanar fat and water weighted pulse sequences were obtained. COMPARISON: None. FINDINGS: The pituitary and pineal regions are normal. The brainstem is normal. The corpus callosum is normal. The 7th and 8th nerve complexes are normal. Both cerebellopontine angles are clear. The cerebellar vermis and lobes are normal. The ventricles, basal cisterns and cortical sulci are normal for the patient's age with no midline shift and no intra or extra-axial hemorrhage or tumor mass. There is a 2.9 mm area of increased signal in the DWI located in the middle of the right centrum semiovale. The corresponding ADC map fails to show an area of dark signal in that vicinity. The finding may therefore represent either acute lacunar infarct or possibly a T2 shine through. The calvarium is intact. There are no scalp swelling. The vessels at the base of the brain are normal. The orbits, paranasal sinuses and mastoid air cells are normal.. MRI/Brain without Contrast IMPRESSION: Suspicion of a 2.9 mm acute lacunar infarction within the right centrum semiovale Electronically Signed: Raffy Pineda MD at 2:17 EDT Tel , Service support ,
[2018-10-04 08:36] LABS: Bedside Glucose 232 mg/dL (70-110)
[2018-10-04] MEDS: Amiodarone 200 MG Tablet PO ×3 (09:15→21:25)
--- NOTE | 2018-10-04 09:16 | PCM.PN.HOSP ---
Patient Problems: Active and Suspected Problems (Last Reviewed 07/11/18 @ 14:55 by Dede Kasper) Atrial fibrillation (Acute) CVA (cerebral vascular accident) (Acute) DKA (diabetic ketoacidoses) (Acute) Renal insufficiency (Acute) Hypertriglyceridemia (Acute) Subjective: Patient seen and examined. She had no complaints this morning and felt well. Review of systems otherwise negative. Labs and vitals reviewed. Anion gap closed overnight and anion gap is 11. Insulin drip was therefore stopped. Amiodarone drip was started on account of A. fib with RVR. Cardiology consulted. She still awaiting echo and MRI and MRA of the brain. Vitals/I&O's: Vital Signs Temp Pulse Resp BP Pulse Ox 98.4 F 95 23 H 149/73 H 94 10/04/18 08:00 10/04/18 08:26 10/04/18 08:00 10/04/18 08:00 10/04/18 08:00 Oxygen Flow Rate (L/min) 2 Oxygen Delivery Method Nasal Cannula Weight: 238 lb 5.115 oz Body Mass Index (BMI) 40.6 Finger Stick Blood Glucose 158 Intake and Output for Last 24 Hours 10/02/18 10/03/18 10/04/18 23:59 23:59 23:59 Intake Total 4150.8 / 4150.8 Output Total 250 / 250 Balance 3900.8 / 3900.8 General: Alert, Oriented x3, Cooperative, No apparent distress, HEENT: Atraumatic, PERRLA, EOMI, Normocephalic Oral: Dry Mucosa Neck: Supple, No JVD, Negative Carotid Bruits Lungs: Clear to auscultation, Normal air movement, No rhonchi, No wheeze, No rales Cardiovascular: Normal S1, Normal S2, No murmurs, Tachycardic Abdomen: Bowel Sounds Present, Soft, Non Tender, Non-Distended, No Hepato-splenomegaly Extremities: No clubbing, No cyanosis, No edema, Capillary Refill Less than 3 Seconds Skin: No rashes, No breakdown Musculoskeletal: No Tenderness to Palpation of Joints or Extremities Lymphatic: No Cervical, Supraclavicular, or Inguinal Adenopathy Neurological: Cranial nerves II-XII grossly intact, Neuro grossly intact, - - very mildly decreased power in RUE. Psych/Mental Status: Normal Affect, Appropriate, Alert and oriented to time, place, person, mood and affect Laboratory Results 10/03/18 14:45: WBC 14.0 H, RBC 4.36, Hgb 11.3 L, Hct 34.2 L, MCV 78.4 L, MCH 25.9 L, MCHC 33.0, RDW 16.9 H, RDW Differential 48.4 H, Plt Count 188, MPV 11.1, Immature Gran % (Auto) 0.200, Neut % (Auto) 89.2 H, Lymph % (Auto) 3.7 L, [place] % (Auto) 6.3, Eos % (Auto) 0.5, Baso % (Auto) 0.1, Absolute Neuts (auto) 12.5 H, Absolute Lymphs (auto) 0.52 L, Total Counted Not Reportable 10/03/18 14:45: PT Cancelled, INR Cancelled, APTT Cancelled 10/03/18 14:45: Sodium Cancelled, Potassium Cancelled, Chloride Cancelled, Carbon Dioxide Cancelled, Anion Gap Cancelled, BUN Cancelled, Creatinine Cancelled, Estim Creat Clear Calc Cancelled, Est GFR (MDRD) Af Amer Cancelled, Est GFR (MDRD) Non-Af Cancelled, BUN/Creatinine Ratio Cancelled, Glucose Cancelled, Calcium Cancelled, Troponin I Cancelled 10/03/18 15:05: POC Glucose 421 H 10/03/18 15:07: PT 17.2 H, INR 1.4, APTT 33.4 10/03/18 15:07: Sodium 129 L, Potassium 4.6, Chloride 95 L, Carbon Dioxide 19.0 L, Anion Gap 15, BUN 78 H, Creatinine 5.31 H, Estim Creat Clear Calc 8.62, Est GFR (MDRD) Af Amer 10 L, Est GFR (MDRD) Non-Af 9 L, BUN/Creatinine Ratio 14.7, Glucose 413 H, Calcium 9.2, Troponin I < 0.015 10/03/18 15:40: Acetone Level SMALL H 10/03/18 17:18: POC Glucose 328 H 10/03/18 17:52: POC Glucose 356 H 10/03/18 18:20: Sodium 131 L, Potassium 4.4, Chloride 99, Carbon Dioxide 20.0 L, Anion Gap 12, BUN 77 H, Creatinine 5.05 H, Estim Creat Clear Calc 9.06, Est GFR (MDRD) Af Amer 11 L, Est GFR (MDRD) Non-Af 9 L, BUN/Creatinine Ratio 15.2, Glucose 333 H, Calcium 8.9, Total Creatine Kinase 49, Troponin I < 0.015, Triglycerides 508 H, Cholesterol 139, LDL Cholesterol TNP, VLDL Cholesterol TNP, HDL Cholesterol 9 L 10/03/18 18:20: Hemoglobin A1c 9.8 H 10/03/18 18:45: Urine Color Yellow, Urine Clarity Turbid, Urine pH 5.0, Ur Specific [place] 1.020, Urine Protein 100 H, Urine Glucose (UA) Normal, Urine Ketones 5 H, Urine Occult Blood 150 H, Urine Nitrite Positive H, Urine Bilirubin 1 H, Urine Urobilinogen 1 H, Ur Leukocyte Esterase 500 H 10/03/18 18:45: Urine Creatinine 170.00 10/03/18 18:45: Ur Random Sodium 40 10/03/18 19:02: POC Glucose 337 H 10/03/18 20:06: POC Glucose 216 H 10/03/18 21:00: Sodium 132 L, Potassium 4.1, Chloride 101, Carbon Dioxide 20.0 L, Anion Gap 11, BUN 76 H, Creatinine 5.02 H, Estim Creat Clear Calc 9.12, Est GFR (MDRD) Af Amer 11 L, Est GFR (MDRD) Non-Af 9 L, BUN/Creatinine Ratio 15.1, Glucose 191 H, Calcium 8.5, Total Bilirubin 0.80, AST 16, ALT 24, Alkaline Phosphatase 117, Troponin I < 0.015, Total Protein 6.7, Albumin 2.2 L, Globulin 4.5 H, Albumin/Globulin Ratio 0.5 L 10/03/18 21:00: WBC 10.7, RBC 3.94 L, Hgb 10.1 L, Hct 30.2 L, MCV 76.6 L, MCH 25.6 L, MCHC 33.4, RDW 16.3 H, RDW Differential 46.3 H, Plt Count 169, MPV 10.5 10/03/18 21:00: PT 16.4 H, INR 1.3, APTT 34.4 10/03/18 21:04: POC Glucose 191 H 10/03/18 21:30: Lactic Acid 2.5 H 10/03/18 22:12: POC Glucose 158 H 10/04/18 04:20: Lactic Acid 1.0 10/04/18 04:20: WBC 10.0, RBC 3.77 L, Hgb 9.6 L, Hct 29.0 L, MCV 76.9 L, MCH 25.5 L, MCHC 33.1, RDW 16.3 H, RDW Differential 43.7, Plt Count 156, MPV 11.4, Immature Gran % (Auto) 0.500, Neut % (Auto) 85.6 H, Lymph % (Auto) 4.5 L, [place] % (Auto) 7.9, Eos % (Auto) 1.4, Baso % (Auto) 0.1, Absolute Neuts (auto) 8.6 H, Absolute Lymphs (auto) 0.45 L, Total Counted Not Reportable 10/04/18 04:20: Sodium 135 L, Potassium 4.7, Chloride 105, Carbon Dioxide 19.0 L, Anion Gap 11, BUN 76 H, Creatinine 4.91 H, Estim Creat Clear Calc 9.32, Est GFR (MDRD) Af Amer 11 L, Est GFR (MDRD) Non-Af 9 L, BUN/Creatinine Ratio 15.5, Glucose 249 H, Calcium 8.2 L, Phosphorus 4.1, Magnesium 2.1 10/04/18 08:19: POC Glucose 232 H Diagnostic Data Brain CT 10/03/18 14:45 IMPRESSION: Findings suggestive of a lacunar infarct in the insular cortex of the right temporal lobe. Decreased attenuation in the posterior right temporal parietal lobe. Subacute ischemia should BE ruled out. Electronically Signed: Jordan Jones, at 15:09 EDT , Service support , Renal Ultrasound 10/03/18 17:59 IMPRESSION: Normal ultrasound of the kidneys. Electronically Signed: Sridhar Marinelli DO at 23:20 EDT Tel [phone], Service support , Chest X-Ray 10/03/18 20:52 IMPRESSION: No acute cardiopulmonary disease. Electronically Signed: Sridhar Marinelli DO at 23:19 EDT Tel [phone], Service support , Current Medications Acetaminophen (Tylenol) 500 mg PO Q6H PRN PRN PRN Reason: PAIN Amiodarone HCl (Cordarone) 200 mg PO TID [facility] Aspirin (Aspirin, Baby) 81 mg PO DAILY@0800 [facility] Last Admin: 10/04/18 08:30 Dose: 81 mg Atorvastatin Calcium (Lipitor) 40 mg PO QHS [facility] Last Admin: 10/03/18 23:26 Dose: 40 mg Cyclobenzaprine HCl (Cyclobenzaprine Hcl) 5 mg PO TID PRN PRN PRN Reason: SPASMS Dextrose (D50w Syringe) 0 gm IV X1 PRN; Protocol PRN Reason: Hypoglycemia Glucagon () 1 mg IM .X1 PRN PRN Reason: Hypoglycemia Potassium Chloride/Sodium Chloride () 1,000 mls @ 150 mls/hr IV .[id number] [facility] Last Admin: 10/04/18 07:01 Dose: 150 mls/hr Sodium Chloride () 250 mls @ 15 mls/hr IV .[id number] PRN PRN Reason: SALINE FLUSH Sodium Chloride () 500 mls @ 15 mls/hr IV .[id number] PRN PRN Reason: SALINE FLUSH Amiodarone HCl 360 mg/ (Dextrose) 200 mls @ 16.67 mls/hr CONT INF .Q12H [facility] Stop: 10/04/18 18:59 Insulin Human Lispro (Humalog Kwikpen (Bkc)) 0 unit SC ACHS [facility]; Protocol Last Admin: 10/04/18 08:27 Dose: 3 u Metoprolol Tartrate (Lopressor (Beta Keanu)) 25 mg PO BID [facility] Last Admin: 10/04/18 08:26 Dose: 25 mg Sertraline HCl (Zoloft) 100 mg PO DAILY [facility] Last Admin: 10/04/18 08:30 Dose: 100 mg Sodium Chloride () 5 - 15 ml IV UD PRN PRN Reason: SALINE FLUSH Tolterodine Tartrate (Detrol La) 4 mg PO DAILY [facility] Last Admin: 10/04/18 08:30 Dose: 4 mg Medical Necessity - Tobacco Use Smoking Status: Never smoker Tobacco Use: Non-smoker Assessment/Plan All Active Problems (Last Reviewed 07/11/18 @ 14:55 by Dede Kasper) Atrial fibrillation (Acute) CVA (cerebral vascular accident) (Acute) DKA (diabetic ketoacidoses) (Acute) Renal insufficiency (Acute) Hypertriglyceridemia (Acute) Abnormal mammogram of right breast (Acute) 68-year-old female admitted with a complaint of generalized malaise and weakness found to be in A. fib with RVR, DKA and having severe CRISTIAN. 1. Afib with RVR new onset, has no history of AFib amiodarone drip started overnight o/a of afib with RVR on aspirin. troponins x 3 were negative CHADVASC score is 5; unable to anticoagulate pending MRI of brain to evaluate extent of ischemic stroke cardiology on board 2D echo pending CXR showed no acute cardiopulmonary process 2. DKA gap has closed and is 11 this morning; bicarb is 19 A1C was 9.8 will start insulin 10IU qhs; hold metformin, januvia and glimepiride for now accuchecks ACHS; ISS 3. CRISTIAN Cr was 5.31 on admisison, is now down to 4.91. FeNA was 1%, indicating pre-renal cause renal USG was unremarkable CPK was WNL continue IVF hydration defer nephro consult for now as Cr is trending down. 4. Sepsis due to UTI SIRS is 1/4- tachypnea wbc is down to 10 received one dose of vancomycin and cefepime overnight UA showed elevated leucocyte esterase nad positive nitrites will resume IV ceftriaxone blood cultures pending 5. Acute ischemic CVA NIHSS- [address] brain showed lacunar infarct in insular cortex of right temporal lobe and decdresed attenuation in the posterior right temporal parietal lobe; subacute ischemia should be ruled out awaiting MRI of brain and MRA of head/neck on high intensity statin and aspirin PT/OT on board BP meds on hold 6. Hyponatremia: Na is up to 135 today, from 129 on admission. will monitor 7. Hypertension: controlled for age. BP meds held-losartan, metoprolol and allow for permissive hypertension. Will await MRI and resume BP meds afterwards 8. Urinary retention: On oxybutynin. DVT prophylaxis: Heparin Code Visit Inpatient E&M: 73403 Subs Hosp L3
--- NOTE | 2018-10-04 09:21 | PN_ITS ---
Patient Problems: Active and Suspected Problems (Last Reviewed 07/11/18 @ 14:55 by Dede Kasper) Atrial fibrillation (Acute) CVA (cerebral vascular accident) (Acute) DKA (diabetic ketoacidoses) (Acute) Renal insufficiency (Acute) Hypertriglyceridemia (Acute) Subjective: Patient seen and examined. She had no complaints this morning and felt well. Review of systems otherwise negative. Labs and vitals reviewed. Anion gap closed overnight and anion gap is 11. Insulin drip was therefore stopped. Amiodarone drip was started on account of A. fib with RVR. Cardiology consulted. She still awaiting echo and MRI and MRA of the brain. Vitals/I&O's: Vital Signs Temp Pulse Resp BP Pulse Ox 98.4 F 95 23 H 149/73 H 94 10/04/18 08:00 10/04/18 08:26 10/04/18 08:00 10/04/18 08:00 10/04/18 08:00 Oxygen Flow Rate (L/min) 2 Oxygen Delivery Method Nasal Cannula Weight: 238 lb 5.115 oz Body Mass Index (BMI) 40.6 Finger Stick Blood Glucose 158 Intake and Output for Last 24 Hours 10/02/18 10/03/18 10/04/18 23:59 23:59 23:59 Intake Total 4150.8 / 4150.8 Output Total 250 / 250 Balance 3900.8 / 3900.8 General: Alert, Oriented x3, Cooperative, No apparent distress, HEENT: Atraumatic, PERRLA, EOMI, Normocephalic Oral: Dry Mucosa Neck: Supple, No JVD, Negative Carotid Bruits Lungs: Clear to auscultation, Normal air movement, No rhonchi, No wheeze, No rales Cardiovascular: Normal S1, Normal S2, No murmurs, Tachycardic Abdomen: Bowel Sounds Present, Soft, Non Tender, Non-Distended, No Hepato- splenomegaly Extremities: No clubbing, No cyanosis, No edema, Capillary Refill Less than 3 Seconds Skin: No rashes, No breakdown Musculoskeletal: No Tenderness to Palpation of Joints or Extremities Lymphatic: No Cervical, Supraclavicular, or Inguinal Adenopathy Neurological: Cranial nerves II-XII grossly intact, Neuro grossly intact, - - very mildly decreased power in RUE. Psych/Mental Status: Normal Affect, Appropriate, Alert and oriented to time, place, person, mood and affect Laboratory Results 10/03/18 14:45: WBC 14.0 H, RBC 4.36, Hgb 11.3 L, Hct 34.2 L, MCV 78.4 L, MCH 25.9 L, MCHC 33.0, RDW 16.9 H, RDW Differential 48.4 H, Plt Count 188, MPV 11.1, Immature Gran % (Auto) 0.200, Neut % (Auto) 89.2 H, Lymph % (Auto) 3.7 L, [place] % (Auto) 6.3, Eos % (Auto) 0.5, Baso % (Auto) 0.1, Absolute Neuts (auto) 12.5 H, Absolute Lymphs (auto) 0.52 L, Total Counted Not Reportable 10/03/18 14:45: PT Cancelled, INR Cancelled, APTT Cancelled 10/03/18 14:45: Sodium Cancelled, Potassium Cancelled, Chloride Cancelled, Carbon Dioxide Cancelled, Anion Gap Cancelled, BUN Cancelled, Creatinine Cancelled, Estim Creat Clear Calc Cancelled, Est GFR (MDRD) Af Amer Cancelled, Est GFR (MDRD) Non-Af Cancelled, BUN/Creatinine Ratio Cancelled, Glucose Cancelled, Calcium Cancelled, Troponin I Cancelled 10/03/18 15:05: POC Glucose 421 H 10/03/18 15:07: PT 17.2 H, INR 1.4, APTT 33.4 10/03/18 15:07: Sodium 129 L, Potassium 4.6, Chloride 95 L, Carbon Dioxide 19.0 L, Anion Gap 15, BUN 78 H, Creatinine 5.31 H, Estim Creat Clear Calc 8.62, Est GFR (MDRD) Af Amer 10 L, Est GFR (MDRD) Non-Af 9 L, BUN/Creatinine Ratio 14.7, Glucose 413 H, Calcium 9.2, Troponin I < 0.015 10/03/18 15:40: Acetone Level SMALL H 10/03/18 17:18: POC Glucose 328 H 10/03/18 17:52: POC Glucose 356 H 10/03/18 18:20: Sodium 131 L, Potassium 4.4, Chloride 99, Carbon Dioxide 20.0 L, Anion Gap 12, BUN 77 H, Creatinine 5.05 H, Estim Creat Clear Calc 9.06, Est GFR (MDRD) Af Amer 11 L, Est GFR (MDRD) Non-Af 9 L, BUN/Creatinine Ratio 15.2, Glucose 333 H, Calcium 8.9, Total Creatine Kinase 49, Troponin I < 0.015, Triglycerides 508 H, Cholesterol 139, LDL Cholesterol TNP, VLDL Cholesterol TNP, HDL Cholesterol 9 L 10/03/18 18:20: Hemoglobin A1c 9.8 H 10/03/18 18:45: Urine Color Yellow, Urine Clarity Turbid, Urine pH 5.0, Ur Specific [place] 1.020, Urine Protein 100 H, Urine Glucose (UA) Normal, Urine Ketones 5 H, Urine Occult Blood 150 H, Urine Nitrite Positive H, Urine Bilirubin 1 H, Urine Urobilinogen 1 H, Ur Leukocyte Esterase 500 H 10/03/18 18:45: Urine Creatinine 170.00 10/03/18 18:45: Ur Random Sodium 40 10/03/18 19:02: POC Glucose 337 H 10/03/18 20:06: POC Glucose 216 H 10/03/18 21:00: Sodium 132 L, Potassium 4.1, Chloride 101, Carbon Dioxide 20.0 L , Anion Gap 11, BUN 76 H, Creatinine 5.02 H, Estim Creat Clear Calc 9.12, Est GFR (MDRD) Af Amer 11 L, Est GFR (MDRD) Non-Af 9 L, BUN/Creatinine Ratio 15.1, Glucose 191 H, Calcium 8.5, Total Bilirubin 0.80, AST 16, ALT 24, Alkaline Phosphatase 117, Troponin I < 0.015, Total Protein 6.7, Albumin 2.2 L, Globulin 4.5 H, Albumin/Globulin Ratio 0.5 L 10/03/18 21:00: WBC 10.7, RBC 3.94 L, Hgb 10.1 L, Hct 30.2 L, MCV 76.6 L, MCH 25.6 L, MCHC 33.4, RDW 16.3 H, RDW Differential 46.3 H, Plt Count 169, MPV 10.5 10/03/18 21:00: PT 16.4 H, INR 1.3, APTT 34.4 10/03/18 21:04: POC Glucose 191 H 10/03/18 21:30: Lactic Acid 2.5 H 10/03/18 22:12: POC Glucose 158 H 10/04/18 04:20: Lactic Acid 1.0 10/04/18 04:20: WBC 10.0, RBC 3.77 L, Hgb 9.6 L, Hct 29.0 L, MCV 76.9 L, MCH 25.5 L, MCHC 33.1, RDW 16.3 H, RDW Differential 43.7, Plt Count 156, MPV 11.4, Immature Gran % (Auto) 0.500, Neut % (Auto) 85.6 H, Lymph % (Auto) 4.5 L, [place] % (Auto) 7.9, Eos % (Auto) 1.4, Baso % (Auto) 0.1, Absolute Neuts (auto) 8.6 H, Absolute Lymphs (auto) 0.45 L, Total Counted Not Reportable 10/04/18 04:20: Sodium 135 L, Potassium 4.7, Chloride 105, Carbon Dioxide 19.0 L , Anion Gap 11, BUN 76 H, Creatinine 4.91 H, Estim Creat Clear Calc 9.32, Est GFR (MDRD) Af Amer 11 L, Est GFR (MDRD) Non-Af 9 L, BUN/Creatinine Ratio 15.5, Glucose 249 H, Calcium 8.2 L, Phosphorus 4.1, Magnesium 2.1 10/04/18 08:19: POC Glucose 232 H Diagnostic Data Brain CT 10/03/18 14:45 IMPRESSION: Findings suggestive of a lacunar infarct in the insular cortex of the right temporal lobe. Decreased attenuation in the posterior right temporal parietal lobe. Subacute ischemia should BE ruled out. Electronically Signed: Jordan Jones, at 15:09 EDT , Service support , Renal Ultrasound 10/03/18 17:59 IMPRESSION: Normal ultrasound of the kidneys. Electronically Signed: Sridhar Marinelli DO at 23:20 EDT Tel [phone], Service support , Chest X-Ray 10/03/18 20:52 IMPRESSION: No acute cardiopulmonary disease. Electronically Signed: Sridhar Marinelli DO at 23:19 EDT Tel [phone], Service support , Current Medications Acetaminophen (Tylenol) 500 mg PO Q6H PRN PRN PRN Reason: PAIN Amiodarone HCl (Cordarone) 200 mg PO TID ON LICENSE OF [facility] Aspirin (Aspirin, Baby) 81 mg PO DAILY@0800 ON LICENSE OF [facility] Last Admin: 10/04/18 08:30 Dose: 81 mg Atorvastatin Calcium (Lipitor) 40 mg PO QHS ON LICENSE OF [facility] Last Admin: 10/03/18 23:26 Dose: 40 mg Cyclobenzaprine HCl (Cyclobenzaprine Hcl) 5 mg PO TID PRN PRN PRN Reason: SPASMS Dextrose (D50w Syringe) 0 gm IV X1 PRN; Protocol PRN Reason: Hypoglycemia Glucagon () 1 mg IM .X1 PRN PRN Reason: Hypoglycemia Potassium Chloride/Sodium Chloride () 1,000 mls @ 150 mls/hr IV .Q6H40M ON LICENSE OF [facility] Last Admin: 10/04/18 07:01 Dose: 150 mls/hr Sodium Chloride () 250 mls @ 15 mls/hr IV .[id number] PRN PRN Reason: SALINE FLUSH Sodium Chloride () 500 mls @ 15 mls/hr IV .[id number] PRN PRN Reason: SALINE FLUSH Amiodarone HCl 360 mg/ (Dextrose) 200 mls @ 16.67 mls/hr CONT INF .Q12H ON LICENSE OF [facility] Stop: 10/04/18 18:59 Insulin Human Lispro (Humalog Kwikpen (Bkc)) 0 unit SC ACHS ON LICENSE OF [facility]; Protocol Last Admin: 10/04/18 08:27 Dose: 3 u Metoprolol Tartrate (Lopressor (Beta Keanu)) 25 mg PO BID ON LICENSE OF [facility] Last Admin: 10/04/18 08:26 Dose: 25 mg Sertraline HCl (Zoloft) 100 mg PO DAILY ON LICENSE OF [facility] Last Admin: 10/04/18 08:30 Dose: 100 mg Sodium Chloride () 5 - 15 ml IV UD PRN PRN Reason: SALINE FLUSH Tolterodine Tartrate (Detrol La) 4 mg PO DAILY ON LICENSE OF [facility] Last Admin: 10/04/18 08:30 Dose: 4 mg Medical Necessity - Tobacco Use Smoking Status: Never smoker Tobacco Use: Non-smoker Assessment/Plan All Active Problems (Last Reviewed 07/11/18 @ 14:55 by Dede Kasper) Atrial fibrillation (Acute) CVA (cerebral vascular accident) (Acute) DKA (diabetic ketoacidoses) (Acute) Renal insufficiency (Acute) Hypertriglyceridemia (Acute) Abnormal mammogram of right breast (Acute) 68-year-old female admitted with a complaint of generalized malaise and weakness found to be in A. fib with RVR, DKA and having severe CRISTIAN. 1. Afib with RVR * new onset, has no history of AFib * amiodarone drip started overnight o/a of afib with RVR * on aspirin. * troponins x 3 were negative * CHADVASC score is 5; unable to anticoagulate pending MRI of brain to evaluate extent of ischemic stroke * cardiology on board * 2D echo pending * CXR showed no acute cardiopulmonary process * 2. DKA * gap has closed and is 11 this morning; bicarb is 19 * A1C was 9.8 * will start insulin 10IU qhs; hold metformin, januvia and glimepiride for now * accuchecks ACHS; ISS * 3. CRISTIAN * Cr was 5.31 on admisison, is now down to 4.91. * FeNA was 1%, indicating pre-renal cause * renal USG was unremarkable * CPK was WNL * continue IVF hydration * defer nephro consult for now as Cr is trending down. * 4. Sepsis due to UTI * SIRS is 1/4- tachypnea * wbc is down to 10 * received one dose of vancomycin and cefepime overnight * UA showed elevated leucocyte esterase nad positive nitrites * will resume IV ceftriaxone * blood cultures pending * 5. Acute ischemic CVA * NIHSS- 1 on admission * CT brain showed lacunar infarct in insular cortex of right temporal lobe and decdresed attenuation in the posterior right temporal parietal lobe; subacute ischemia should be ruled out * awaiting MRI of brain and MRA of head/neck * on high intensity statin and aspirin * PT/OT on board * BP meds on hold * * 6. Hyponatremia: * Na is up to 135 today, from 129 on admission. * will monitor * 7. Hypertension: controlled for age. BP meds held-losartan, metoprolol and allow for permissive hypertension. Will await MRI and resume BP meds afterwards 8. Urinary retention: On oxybutynin. DVT prophylaxis: Heparin Code Visit Inpatient E&M: [id number] Subs Hosp L3
--- NOTE | 2018-10-04 10:19 | CASEMGMT ---
RN CM CLAY TRANSPORTER CM to room to meet with patient for initial transition planning/care coordination assessment. CORNELIO ALMANZAR introduced self and role at [facility]. Pt voices understanding and consents to assessment at this time. Pt resting in bed in no distress at this time. Pt is A/O at this time and answers all questions appropriately. Care providers, pharmacy, and demographics verified/updated at this time. PCP: Paresh Specialists: Mandi Langley Pharmacy: [facility] Insurance: [employer] [facility] Prescription Benefit: Yes Living Will/HPOA: Pt does not currently have LW/HCPOA. Would like to talk to SW to complete paperwork. HUAN Garcia, notified. LNOK: Brother, Jose Alberto. Sister Living Arrangements: Lives alone. lives in a 5-story home but usually only uses 3 stories. is able to do own personal ADL's: bathing/dressing, but it has been becoming more difficult . Friend, Lea, helps with cleaning and helping with her animals. Pt states she does her own laundry, meals, and medication mgmt/bills. Transportation: Pt states drives self and states no transportation concerns at this time. States her friend, Lea, can assist with transportation if needed. DME: has the following DME: Shower chair, rails/grab bars, hand-held shower, walker, cane, rollator, CPAP, Glucometer. States glucometer works correctly and has all needed supplies at this time. States has a Medical Alert button but states, I don't know where it is right now. Pt states no need for further DME at this time. HHC/SNF: Pt states she would like to go to a SNF if recommended by therapy. Has no preference of facility as long as it is in network with her insurance. States if therapy does not recommend SNF, then she would like to go home with HHC. Denies preference of C agency. CM to follow for discharge planning/needs. Pt voices no further concerns/needs at this time. Advised pt to ask for CM if any further questions/concerns/needs arise. Voices understanding. PLAN: TBD. SNF vs. Home w/HHC. PT/OT evals pending. SW consult for AD. Pt also interested in Meals on Wheels if discharges home. Reynaldo IGLESIAS RN, CM
[2018-10-04 11:26] LABS: Bedside Glucose 275 mg/dL (70-110)
[2018-10-04] MEDS: Ceftriaxone 1 GM/50 ML BAG IV (11:33)
--- NOTE | 2018-10-04 11:45 | CPS ---
PT CURRENT HOME PAP MACHINE NOT ALL HERE. PLACED ON HOSPITAL PAP ON CURRENT HOME CPAP SETTINGS ([id number]). FIO2 TITRATED TO KEEPS SPO2 90% AND ABOVE. FAMILY TO BRING CORRECT PAP MACHINE IN AT LATER TIME.
--- NOTE | 2018-10-04 12:59 | CHAPLAIN ---
Type of Pastoral Visit _x__ Initial Visit ___ Follow-up Visit ___ On-call Visit ___ General Patient Visit ___ Spiritual Assessment ___ Family Conference ___ Bereavement ___ Rapid Response ___ Code Blue ___ Other (describe below) Pastoral Care Referral From _x__ Patient ___ Family ___ Nurse ___ Physician ___ Fiber Optics Engineer ___ Associate Professor Of Communication ___ Other (describe below) Sacrament/Intervention ___ Active listening ___ Anointing ___ Sabianism ___ Bereavement ___ Communion ___ Lucia exploration ___ ___ Life review ___ Prayer ___ Reconciliation ___ Sacrament of Sick ___ Supportive presence ___ Wedding ___ Other (describe below) Pastoral Comments only request from patient is to have her doweler contacted; [facility] [employer]; this senior technical program manager notifies her lucia group of her admission to hospital
--- NOTE | 2018-10-04 13:48 | PCM.CONS.GEN ---
Problem List (1) CVA (cerebral vascular accident) Status: Suspected Reason for Consult Date of Consultation: 10/04/18 Reason for Consultation: Possible stroke History of Present Illness: The patient is a 68 year old F with PMH HTN, HLD, DM, history of cervical and lumbar surgery, history of cervical and lumbar spinal stenosis, LEIGH ANN on CPAP, depression admitted with generalized malaise. Neurology consulted for possible stroke. At present patient denies any headache, dizziness, speech disturbances, visual disturbances, focal motor weakness or sensory loss. She does complain of chronic neck pain and low back pain. Denies any radicular symptoms. Per patient she lives alone, denies any frequent falls but has been having few falls lately as her legs would give away, does drive, uses cane or walker to ambulate, and does need assistance for her ADLs. Per patient she was taking aspirin at baseline but has not been taking it for the past few days. History is also obtained from medical records and documentation. Per ED documentation on admission NIHSS was 1, CT head done on admission reported to show findings suggestive of lacunar infarct in the insular cortex of the right temporal lobe and decreased attenuation in the posterior right temporal lobe, subacute ischemia should be ruled out. On admission she was found to be in A. fib with RVR, labs showed sodium 129, creatinine 5.31, glucose was 421, WBC 14, UA showed LE positive, nitrite positive and was turbid. [] Past Medical History Past Medical History (Chronic Problems): Chronic Problems (Last Reviewed 07/11/18 @ 14:55 by Dede Kasper) HTN (hypertension) (Chronic) Diabetes mellitus (Chronic) Medical History: Medical History (Last Reviewed 07/11/18 @ 14:55 by Dede Kasper) Abnormal mammogram of right breast (Acute) R92.8 Abnormal mammogram of right breast R92.8 Arthritis M19.90 Depression with anxiety F41.8 Diabetes E11.9 Sleep apnea G47.30 Hypertension I10 Allergies fosinopril [From Monopril] Allergy (Unknown, Verified 10/03/18 14:25) unknown pioglitazone Adverse Reaction (Verified 10/03/18 14:25) Other Home Medications: Ambulatory Orders Medication Instructions Recorded aspirin 81 mg chewable tablet 81 mg PO DAILY 07/11/18 glimepiride 4 mg tablet 4 mg PO BID tab 07/11/18 losartan 50 mg tablet 50 mg PO BID tab 07/11/18 metformin 1,000 mg tablet 1,000 mg PO BID 07/11/18 naproxen 500 mg tablet 500 mg PO BID 07/11/18 oxybutynin chloride ER 15 mg 15 mg PO DAILY 07/11/18 tablet,extended release 24 hr sertraline 100 mg tablet 100 mg PO DAILY 07/11/18 sitagliptin 100 mg tablet 100 mg PO DAILY 07/11/18 Acetaminophen [Tylenol Extra 500 mg PO Q6H PRN PRN 10/03/18 Strength] Cyclobenzaprine HCl 5 - 10 mg PO TID PRN PRN 10/03/18 Metoprolol Tartrate [Lopressor 25 mg PO BID 10/03/18 (beta fritz)] Oxycodone HCl/Acetaminophen 1 tab PO Q6H PRN PRN 10/03/18 [Oxycodone-Acetaminophen 5-325] Simvastatin [Zocor] 20 mg PO QHS 10/03/18 Surgical History: Surgical History (Last Updated 07/11/18 @ 14:55 by Dede Kasper) History of back surgery Z98.890 History of carpal tunnel release Z98.890 History of hysterectomy Z90.710 Psychiatric History: No pertinent 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 Lives: Alone Smoking Status: Never smoker Tobacco Use: Non-smoker Alcohol: None Drugs: None - *Family History Maternal Family History: Family History (Last Updated 07/11/18 @ 14:56 by Dede Kasper) Father Diabetes Hypertension High cholesterol Review of Systems Constitutional: Reports: - - Complete ROS negative except as documented in HPI Patient Problems: Active and Suspected Problems (Last Reviewed 07/11/18 @ 14:55 by Dede Kasper) Atrial fibrillation (Acute) CVA (cerebral vascular accident) (Suspected) DKA (diabetic ketoacidoses) (Acute) Renal insufficiency (Acute) Hypertriglyceridemia (Acute) - Physical Exam General: Alert HEENT: Normocephalic Neck: Supple Lungs: Normal air movement Cardiovascular: Normal S1, Normal S2 Abdomen: Bowel Sounds Present Extremities: No cyanosis Neurological: - - Conscious, alert, CN?2-12 grossly intact, power 5 x 5 in both upper extremities and lower extremities, no sensory loss, no cerebellar signs, no speech disturbances at present, gait deferred, reflexes + B/L B/S/T/K/A, NIHSS 0 at present, mRS 2 at baseline Psych/Mental Status: Normal Affect Vital Signs Temp Pulse Resp BP Pulse Ox 98.2 F 89 18 135/64 H 92 10/04/18 12:54 10/04/18 12:54 10/04/18 12:54 10/04/18 12:54 10/04/18 12:54 Oxygen Flow Rate (L/min) 4 Oxygen Delivery Method Nasal Cannula Weight: 108.1 kg Body Mass Index (BMI) 40.6 Finger Stick Blood Glucose 158 Intake and Output for Last 24 Hours 10/02/18 10/03/18 10/04/18 23:59 23:59 23:59 Intake Total 5009.8 / 5009.8 Output Total 250 / 250 Balance 4759.8 / 4759.8 Microbiology Past 72 Hours 10/03/18 21:15 Urine Culture - Preliminary Urine Catheter - Catheter GNR lactose prestidigitator Laboratory Tests Past 24 Hrs 10/03/18 10/03/18 10/03/18 14:45 14:45 14:45 WBC 14.0 H RBC 4.36 Hgb 11.3 L Hct 34.2 L MCV 78.4 L MCH 25.9 L MCHC 33.0 RDW 16.9 H RDW Differential 48.4 H Plt Count 188 MPV 11.1 Immature Gran % (Auto) 0.200 Neut % (Auto) 89.2 H Lymph % (Auto) 3.[address] [place] % (Auto) 6.3 Eos % (Auto) 0.5 Baso % (Auto) 0.1 Absolute Neuts (auto) 12.5 H Absolute Lymphs (auto) 0.52 L Total Counted Not Reportable PT Cancelled INR Cancelled APTT Cancelled Sodium Cancelled Potassium Cancelled Chloride Cancelled Carbon Dioxide Cancelled Anion Gap Cancelled BUN Cancelled Creatinine Cancelled Estim Creat Clear Calc Cancelled Est GFR (MDRD) Af Amer Cancelled Est GFR (MDRD) Non-Af Cancelled BUN/Creatinine Ratio Cancelled Glucose Cancelled Hemoglobin A1c Lactic Acid Calcium Cancelled Phosphorus Magnesium Total Bilirubin AST ALT Alkaline Phosphatase Total Creatine Kinase Troponin I Cancelled Total Protein Albumin Globulin Albumin/Globulin Ratio Triglycerides Cholesterol LDL Cholesterol VLDL Cholesterol HDL Cholesterol Urine Color Urine Clarity Urine pH Ur Specific [place] Urine Protein Urine Glucose (UA) Urine Ketones Urine Occult Blood Urine Nitrite Urine Bilirubin Urine Urobilinogen Ur Leukocyte Esterase Ur Random Sodium Urine Creatinine Acetone Level 10/03/18 10/03/18 10/03/18 15:07 15:07 15:40 WBC RBC Hgb Hct MCV MCH MCHC RDW RDW Differential Plt Count MPV Immature Gran % (Auto) Neut % (Auto) Lymph % (Auto) [place] % (Auto) Eos % (Auto) Baso % (Auto) Absolute Neuts (auto) Absolute Lymphs (auto) Total Counted PT 17.2 H INR 1.4 APTT 33.4 Sodium 129 L Potassium 4.6 Chloride 95 L Carbon Dioxide 19.0 L Anion Gap 15 BUN 78 H Creatinine 5.31 H Estim Creat Clear Calc 8.62 Est GFR (MDRD) Af Amer 10 L Est GFR (MDRD) Non-Af 9 L BUN/Creatinine Ratio 14.7 Glucose 413 H Hemoglobin A1c Lactic Acid Calcium 9.2 Phosphorus Magnesium Total Bilirubin AST ALT Alkaline Phosphatase Total Creatine Kinase Troponin I < 0.015 Total Protein Albumin Globulin Albumin/Globulin Ratio Triglycerides Cholesterol LDL Cholesterol VLDL Cholesterol HDL Cholesterol Urine Color Urine Clarity Urine pH Ur Specific [place] Urine Protein Urine Glucose (UA) Urine Ketones Urine Occult Blood Urine Nitrite Urine Bilirubin Urine Urobilinogen Ur Leukocyte Esterase Ur Random Sodium Urine Creatinine Acetone Level SMALL H 10/03/18 10/03/18 10/03/18 18:20 18:20 18:45 WBC RBC Hgb Hct MCV MCH MCHC RDW RDW Differential Plt Count MPV Immature Gran % (Auto) Neut % (Auto) Lymph % (Auto) [place] % (Auto) Eos % (Auto) Baso % (Auto) Absolute Neuts (auto) Absolute Lymphs (auto) Total Counted PT INR APTT Sodium 131 L Potassium 4.4 Chloride 99 Carbon Dioxide 20.0 L Anion Gap 12 BUN 77 H Creatinine 5.05 H Estim Creat Clear Calc 9.06 Est GFR (MDRD) Af Amer 11 L Est GFR (MDRD) Non-Af 9 L BUN/Creatinine Ratio 15.2 Glucose 333 H Hemoglobin A1c 9.8 H Lactic Acid Calcium 8.9 Phosphorus Magnesium Total Bilirubin AST ALT Alkaline Phosphatase Total Creatine Kinase 49 Troponin I < 0.015 Total Protein Albumin Globulin Albumin/Globulin Ratio Triglycerides 508 H Cholesterol 139 LDL Cholesterol TNP VLDL Cholesterol TNP HDL Cholesterol 9 L Urine Color Yellow Urine Clarity Turbid Urine pH 5.0 Ur Specific [place] 1.020 Urine Protein 100 H Urine Glucose (UA) Normal Urine Ketones 5 H Urine Occult Blood 150 H Urine Nitrite Positive H Urine Bilirubin 1 H Urine Urobilinogen 1 H Ur Leukocyte Esterase 500 H Ur Random Sodium Urine Creatinine Acetone Level 10/03/18 10/03/18 10/03/18 18:45 18:45 21:00 WBC RBC Hgb Hct MCV MCH MCHC RDW RDW Differential Plt Count MPV Immature Gran % (Auto) Neut % (Auto) Lymph % (Auto) [place] % (Auto) Eos % (Auto) Baso % (Auto) Absolute Neuts (auto) Absolute Lymphs (auto) Total Counted PT INR APTT Sodium 132 L Potassium 4.1 Chloride 101 Carbon Dioxide 20.0 L Anion Gap 11 BUN 76 H Creatinine 5.02 H Estim Creat Clear Calc 9.12 Est GFR (MDRD) Af Amer 11 L Est GFR (MDRD) Non-Af 9 L BUN/Creatinine Ratio 15.1 Glucose 191 H Hemoglobin A1c Lactic Acid Calcium 8.5 Phosphorus Magnesium Total Bilirubin 0.80 AST 16 ALT 24 Alkaline Phosphatase 117 Total Creatine Kinase Troponin I < 0.015 Total Protein 6.7 Albumin 2.2 L Globulin 4.5 H Albumin/Globulin Ratio 0.5 L Triglycerides Cholesterol LDL Cholesterol VLDL Cholesterol HDL Cholesterol Urine Color Urine Clarity Urine pH Ur Specific [place] Urine Protein Urine Glucose (UA) Urine Ketones Urine Occult Blood Urine Nitrite Urine Bilirubin Urine Urobilinogen Ur Leukocyte Esterase Ur Random Sodium 40 Urine Creatinine 170.00 Acetone Level 10/03/18 10/03/18 10/03/18 21:00 21:00 21:30 WBC 10.7 RBC 3.94 L Hgb 10.1 L Hct 30.2 L MCV 76.6 L MCH 25.6 L MCHC 33.4 RDW 16.3 H RDW Differential 46.3 H Plt Count 169 MPV 10.5 Immature Gran % (Auto) Neut % (Auto) Lymph % (Auto) [place] % (Auto) Eos % (Auto) Baso % (Auto) Absolute Neuts (auto) Absolute Lymphs (auto) Total Counted PT 16.4 H INR 1.3 APTT 34.4 Sodium Potassium Chloride Carbon Dioxide Anion Gap BUN Creatinine Estim Creat Clear Calc Est GFR (MDRD) Af Amer Est GFR (MDRD) Non-Af BUN/Creatinine Ratio Glucose Hemoglobin A1c Lactic Acid 2.5 H Calcium Phosphorus Magnesium Total Bilirubin AST ALT Alkaline Phosphatase Total Creatine Kinase Troponin I Total Protein Albumin Globulin Albumin/Globulin Ratio Triglycerides Cholesterol LDL Cholesterol VLDL Cholesterol HDL Cholesterol Urine Color Urine Clarity Urine pH Ur Specific [place] Urine Protein Urine Glucose (UA) Urine Ketones Urine Occult Blood Urine Nitrite Urine Bilirubin Urine Urobilinogen Ur Leukocyte Esterase Ur Random Sodium Urine Creatinine Acetone Level 10/04/18 10/04/18 10/04/18 04:20 04:20 04:20 WBC 10.0 RBC 3.77 L Hgb 9.6 L Hct 29.0 L MCV 76.9 L MCH 25.5 L MCHC 33.1 RDW 16.3 H RDW Differential 43.7 Plt Count 156 MPV 11.4 Immature Gran % (Auto) 0.500 Neut % (Auto) 85.6 H Lymph % (Auto) 4.[address] [place] % (Auto) 7.9 Eos % (Auto) 1.4 Baso % (Auto) 0.1 Absolute Neuts (auto) 8.6 H Absolute Lymphs (auto) 0.45 L Total Counted Not Reportable PT INR APTT Sodium 135 L Potassium 4.7 Chloride 105 Carbon Dioxide 19.0 L Anion Gap 11 BUN 76 H Creatinine 4.91 H Estim Creat Clear Calc 9.32 Est GFR (MDRD) Af Amer 11 L Est GFR (MDRD) Non-Af 9 L BUN/Creatinine Ratio 15.5 Glucose 249 H Hemoglobin A1c Lactic Acid 1.0 Calcium 8.2 L Phosphorus 4.1 Magnesium 2.1 Total Bilirubin AST ALT Alkaline Phosphatase Total Creatine Kinase Troponin I Total Protein Albumin Globulin Albumin/Globulin Ratio Triglycerides Cholesterol LDL Cholesterol VLDL Cholesterol HDL Cholesterol Urine Color Urine Clarity Urine pH Ur Specific [place] Urine Protein Urine Glucose (UA) Urine Ketones Urine Occult Blood Urine Nitrite Urine Bilirubin Urine Urobilinogen Ur Leukocyte Esterase Ur Random Sodium Urine Creatinine Acetone Level POC Glucose 10/04/18 10/04/18 10/03/18 11:08 08:19 22:12 POC Glucose 275 H 232 H 158 H 10/03/18 10/03/18 10/03/18 21:04 20:06 19:02 POC Glucose 191 H 216 H 337 H 10/03/18 10/03/18 10/03/18 17:52 17:18 15:05 POC Glucose 356 H 328 H 421 H Assessment/Plan All Active Problems (Last Reviewed 07/11/18 @ 14:55 by Dede Kasper) Atrial fibrillation (Acute) DKA (diabetic ketoacidoses) (Acute) Renal insufficiency (Acute) Hypertriglyceridemia (Acute) Abnormal mammogram of right breast (Acute) The patient is a 68 year old F with PMH HTN, HLD, DM, history of cervical and lumbar surgery, history of cervical and lumbar spinal stenosis, LEIGH ANN on CPAP, depression admitted with generalized malaise. Neurology consulted for possible stroke. At present patient denies any headache, dizziness, speech disturbances, visual disturbances, focal motor weakness or sensory loss. She does complain of chronic neck pain and low back pain. Denies any radicular symptoms. Per patient she lives alone, denies any frequent falls but has been having few falls lately as her legs would give away, does drive, uses cane or walker to ambulate, and does need assistance for her ADLs. Per patient she was taking aspirin at baseline but has not been taking it for the past few days. History is also obtained from medical records and documentation. Per ED documentation on admission NIHSS was 1, CT head done on admission reported to show findings suggestive of lacunar infarct in the insular cortex of the right temporal lobe and decreased attenuation in the posterior right temporal lobe, subacute ischemia should be ruled out. On admission she was found to be in A. fib with RVR, labs showed sodium 129, creatinine 5.31, glucose was 421, WBC 14, UA showed LE positive, nitrite positive and was turbid Impression Rule out stroke Possible metabolic encephalopathy-DKA, CRISTIAN, sepsis secondary to UTI New onset A. fib Cervical and lumbar stenosis Plan ?Await MRI brain without contrast and MRA head/neck ?MRI C-spine without contrast MRI L-spine without contrast ?On aspirin and Lipitor. Will decide about anticoagulation based on MRI brain imaging findings. ?TTE, LDL-test not performed due to high triglycerides of 508, [id number]-7.8 ?Stroke risk factors discussed and stroke education provided ?Goal BP less than 130/80 mmHg and HbA1c less than 7% ?PT/OT/ST ?GI/DVT prophylaxis ?Fall precautions ?Further medical management per hospitalist team ?Follow-up with neurology as outpatient in 4 weeks ?Please call with questions if any ?Thank you for allowing us to part spent in patient's care management Code Visit Inpatient E&M: [id number] Init Hosp L3
[2018-10-04 17:15] LABS: Bedside Glucose 363 mg/dL (70-110)
--- NOTE | 2018-10-04 21:04 | NURSING ---
Pt states sensation is equal on both side of body, however, when both sides touched at the same time, pt does not accurately states which side is being touched. She makes mistakes on both sides, however, favors the right.
[2018-10-04] MEDS: Atorvastatin Calcium 40 MG Tablet PO (21:26)
[2018-10-05] VITALS (39 sets, daily range): BP systolic 130–215; BP diastolic 68–180; PULSE 68–158; RESP 19–35; TEMP 36.6–37.6; O2SAT 89–99; BMI 40.6
[2018-10-05 00:01] LABS: Bedside Glucose 347 mg/dL (70-110)
--- NOTE | 2018-10-05 01:21 | NURSING ---
Pt only satting 88% on 6L NC. Satting WNL in CPAP.
[2018-10-05] MEDS: 0.9% NaCl Peripheral Flush Adult/Peds IV ×5 (04:30→19:22)
--- NOTE | 2018-10-05 05:55 | EKG12_ITS ---
Test Reason : AM EKG Blood Pressure : / mmHG Vent. Rate : 091 BPM Atrial Rate : 091 BPM P-R Int : 156 ms QRS Dur : 088 ms QT Int : 344 ms P-R-T Axes : 069 053 017 degrees QTc Int : 423 ms Normal sinus rhythm Normal ECG When compared with ECG of 04-OCT-2018 04:59, MANUAL COMPARISON REQUIRED, DATA IS UNCONFIRMED Confirmed by SHERIF CALLOWAY, MILDRED ([id number]), editor continuity and script RADHA HOPKINS ([id number]) on 10/11/2018 12:10:37 PM Referred By: DR KELLER Confirmed By:MILDRED GORMAN MD
[2018-10-05] MEDS: Amiodarone 200 MG Tablet PO ×2 (06:40→13:31)
[2018-10-05] MEDS: Insulin Lispro 100 UNIT/ML INSULN.PEN SC ×4 (06:40→21:44)
[2018-10-05 06:54] LABS: Absolute Neutrophil Count 8.2 X10^3/uL (2.0-7.7); Basophil# 0.02 X10^3/uL; Basophil% 0.2 % (0-1); Eosinophil# 0.12 X10^3/uL; Eosinophils% 1.2 % (0-5); Hemoglobin 9.6 g/dl (12.0-15.0); Lymphocyte % 5.2 % (19-41); Mean Corp Hgb Conc 33.1 g/gl (32-36); Mean Corpuscular Hgb 25.3 pg (27.0-32.0); Mean Corpuscular Volume 76.3 fL (81-99); Mean Platelet Vol. 10.6 fl (6.2-12.0); Monocyte# 0.74 X10^3/uL; Monocyte% 7.7 % (0-10); Neutrophil # 8.19 X10^3/uL (2.7-7.7); Neutrophil % 84.9 % (47-70); Platelet Count 160 K/mm3 (150-450); RBC Distribution Width CV 16.9 % (11.6-14.6); RBC Distribution Width SD 45.1 fl (35.1-43.9); White Blood Count 9.7 K/mm3 (4.4-11.0)
[2018-10-05 06:57] LABS: Differential Indicated SCAN CRITERIA MET; POSITIVE COUNT NO; POSITIVE DIFFERENTIAL YES; POSITIVE MORPHOLOGY NO
[2018-10-05 07:06] LABS: Anion Gap 8 (5-15); BUN 75 mg/dL (7-18); BUN/Creat Ratio 17.2 RATIO (10-20); Calcium,Total 8.6 mg/dL (8.5-10.1); Chloride 110 mmol/L (98-107); Creatinine, Serum 4.36 mg/dL (0.55-1.02); EST Glomerular Filtration Rate 11 mL/min (>60); Est Glom Filt Rate - Afr Amer 13 mL/min (>60); Glucose 298 mg/dL (74-106); Potassium 5.8 mmol/L (3.5-5.1); Sodium Level 136 mmol/L (136-145)
[2018-10-05] MEDS: Aspirin 81 MG TAB.CHEW PO (08:59)
[2018-10-05] MEDS: Sertraline 100 MG Tablet PO (08:59)
[2018-10-05] MEDS: Tolterodine Tartrate 4 MG CAP.SA PO (08:59)
[2018-10-05] MEDS: Metoprolol Tartrate 25 MG Tablet PO (09:00)
[2018-10-05] MEDS: Sodium Polystyrene Sulfonate 15 GM/60 ML UDC 30 GM PO ×2 (09:05→17:59)
--- NOTE | 2018-10-05 10:26 | PN.CARD_ITS ---
Subjectve: She is awake and alert. She has no new acute symptoms. Objective: Vital Signs Temp Pulse Resp BP Pulse Ox 98.3 F 68 26 H 192/92 H 90 10/05/18 06:32 10/05/18 09:00 10/05/18 06:32 10/05/18 09:00 10/05/18 07:34 Oxygen Flow Rate (L/min) 6 Oxygen Delivery Method Nasal Cannula Weight: 242 lb 1.081 oz Body Mass Index (BMI) 40.6 Finger Stick Blood Glucose 158 Intake and Output for Last 24 Hours 10/03/18 10/04/18 10/05/18 23:59 23:59 23:59 Intake Total 6516.8 / 6516.8 699 / 699 Output Total 850 / 850 Balance 5666.8 / 5666.8 699 / 699 General: Awake, Alert, Oriented x 3, Cooperative, No Acute Distress HEENT: Atraumatic, Normocephalic Oral: Moist Mucosa Neck: Supple, Good ROM, No JVD Lungs: Clear to auscultation Cardiovascular: Regular Rhythm, Premature Ectopic Beats, Normal S1, Normal S2 Abdomen: Bowel Sounds Present, Soft, Non Tender Extremities: Trace RLE Edema, Trace LLE Edema Psych/Mental Status: Appropriate 10/05/18 06:20: WBC 9.7, RBC 3.80 L, Hgb 9.6 L, Hct 29.0 L, MCV 76.3 L, MCH 25.3 L, MCHC 33.1, RDW 16.9 H, RDW Differential 45.1 H, Plt Count 160, MPV 10.6, Immature Gran % (Auto) 0.800, Neut % (Auto) 84.9 H, Lymph % (Auto) 5.2 L, [place] % (Auto) 7.7, Eos % (Auto) 1.2, Baso % (Auto) 0.2, Absolute Neuts (auto) 8.2 H, Total Counted Not Reportable 10/05/18 06:20: Sodium 136, Potassium 5.8 H, Chloride 110 H, Carbon Dioxide 18.0 L, Anion Gap 8, BUN 75 H, Creatinine 4.36 H, Est GFR (MDRD) Af Amer 13 L, Est GFR (MDRD) Non-Af 11 L, BUN/Creatinine Ratio 17.2, Glucose 298 H, Calcium 8.6 Rhythm: Sinus rhythm; premature ectopic complexes; brief episode appearing compatible with PAF Transthoracic echocardiogram: Interpretation Summary The estimated ejection fraction is 75 %. The left atrium is moderately enlarged. Mild mitral valve stenosis. Mild (1+) tricuspid valve insufficiency. Right ventricular systolic pressure estimated to be 48 mmHg. Mild pulmonary hypertension. Mild aortic stenosis. Pt appears to be in NSR. There is no comparison study available Medical Necessity - Tobacco Use Smoking Status: Never smoker Tobacco Use: Non-smoker Assessment/Plan 1. Atrial fibrillation with rapid ventricular response The patient appears remaining in sinus rhythm at this time. She has had premature ectopic complexes and a brief episode appearing compatible PAF. She will continue her rate limiting therapy and antiarrhythmic therapy. Anticoagulant therapy will be as deemed appropriate by neurology. Has also undergone evaluation with a transthoracic echocardiogram read her overall LV systolic function was preserved. Her left atrium is enlarged. She also has an element of MR and aortic valve stenosis. 2. Hypertension She states she has had a long-standing history of hypertension. She notes her blood pressure has been somewhat challenging to control. She will continue medical therapy as deemed appropriate per neurology recommendations in light of her recent CVA. 3. Hypertriglyceridemia Her triglycerides are markedly elevated. This may be secondary to her diabetes mellitus. Thus at the moment attempt is being made to bring her hyperglycemia under better control. Her lipids will need to be followed. She may need lipid- lowering therapy. 4. Diabetes mellitus She will continue under the care of internal medicine. 5. DKA She has a history of DKA. She is being evaluated and cared for by internal medicine at this time. 6. Acute renal insufficiency Her Cr level is somewhat improved. This may be secondary to her hyperglycemia, etc. She will continue medical management deemed appropriate per internal medicine. 7. CVA She will continue evaluation care per internal medicine and neurology. Comment: The patient's case has been discussed reviewed with the patient. This note was generated with [employer] dictation software. It may contain incorrect words, spelling, and punctuation that were not noted in checking the note before signing.
--- NOTE | 2018-10-05 10:35 | CASEMGMT ---
Neurologist stated patient did not have a Stroke. Radha ACEVEDO READING [employer]ACH
--- NOTE | 2018-10-05 11:02 | PCM.PN.HOSP ---
Patient Problems: Active and Suspected Problems (Last Reviewed 07/11/18 @ 14:55 by Dede Kasper) Atrial fibrillation (Acute) CVA (cerebral vascular accident) (Suspected) DKA (diabetic ketoacidoses) (Acute) Renal insufficiency (Acute) Hypertriglyceridemia (Acute) Subjective: Patient seen and examined. She has no complaints today and feels well. She has remained in rate and rhythm control and is asymptomatic. Labs and vitals reviewed. Potassium noted to have trended up to 8. Creatinine is trending down. Vitals/I&O's: Vital Signs Temp Pulse Resp BP Pulse Ox 98.7 F 68 20 H 192/92 H 91 10/05/18 08:32 10/05/18 09:00 10/05/18 08:32 10/05/18 09:00 10/05/18 08:32 Oxygen Flow Rate (L/min) 6 Oxygen Delivery Method Nasal Cannula Weight: 242 lb 1.081 oz Body Mass Index (BMI) 40.6 Finger Stick Blood Glucose 158 Intake and Output for Last 24 Hours 10/03/18 10/04/18 10/05/18 23:59 23:59 23:59 Intake Total 6516.8 / 6516.8 699 / 699 Output Total 850 / 850 Balance 5666.8 / 5666.8 699 / 699 General: Alert, Oriented x3, Cooperative, No apparent distress, HEENT: Atraumatic, PERRLA, EOMI, Normocephalic Oral: Dry Mucosa Neck: Supple, No JVD, Negative Carotid Bruits Lungs: Clear to auscultation, Normal air movement, No rhonchi, No wheeze, No rales Cardiovascular: Normal S1, Normal S2, No murmurs, Tachycardic Abdomen: Bowel Sounds Present, Soft, Non Tender, Non-Distended, No Hepato-splenomegaly Extremities: No clubbing, No cyanosis, No edema, Capillary Refill Less than 3 Seconds Skin: No rashes, No breakdown Musculoskeletal: No Tenderness to Palpation of Joints or Extremities Lymphatic: No Cervical, Supraclavicular, or Inguinal Adenopathy Neurological: Cranial nerves II-XII grossly intact, Neuro grossly intact, - - very mildly decreased power in RUE. Psych/Mental Status: Normal Affect, Appropriate, Alert and oriented to time, place, person, mood and affect Microbiology Past 72 Hours 10/03/18 21:15 Urine Catheter - Catheter Urine Culture - Final Escherichia coli Laboratory Results 10/04/18 11:08: POC Glucose 275 H 10/04/18 16:52: POC Glucose 363 H 10/04/18 21:21: POC Glucose 347 H 10/05/18 06:20: WBC 9.7, RBC 3.80 L, Hgb 9.6 L, Hct 29.0 L, MCV 76.3 L, MCH 25.3 L, MCHC 33.1, RDW 16.9 H, RDW Differential 45.1 H, Plt Count 160, MPV 10.6, Immature Gran % (Auto) 0.800, Neut % (Auto) 84.9 H, Lymph % (Auto) 5.2 L, [place] % (Auto) 7.7, Eos % (Auto) 1.2, Baso % (Auto) 0.2, Absolute Neuts (auto) 8.2 H, Absolute Lymphs (auto) 0.50 L, Total Counted Not Reportable 10/05/18 06:20: Sodium 136, Potassium 5.8 H, Chloride 110 H, Carbon Dioxide 18.0 L, Anion Gap 8, BUN 75 H, Creatinine 4.36 H, Estim Creat Clear Calc 10.50, Est GFR (MDRD) Af Amer 13 L, Est GFR (MDRD) Non-Af 11 L, BUN/Creatinine Ratio 17.2, Glucose 298 H, Calcium 8.6 Current Medications Acetaminophen (Tylenol) 500 mg PO Q6H PRN PRN PRN Reason: PAIN Amiodarone HCl (Cordarone) 200 mg PO TID [facility] Last Admin: 10/05/18 06:40 Dose: 200 mg Aspirin (Aspirin, Baby) 81 mg PO DAILY@0800 [facility] Last Admin: 10/05/18 08:59 Dose: 81 mg Atorvastatin Calcium (Lipitor) 40 mg PO QHS [facility] Last Admin: 10/04/18 21:26 Dose: 40 mg Cyclobenzaprine HCl (Cyclobenzaprine Hcl) 5 mg PO TID PRN PRN PRN Reason: SPASMS Dextrose (D50w Syringe) 0 gm IV X1 PRN; Protocol PRN Reason: Hypoglycemia Glucagon () 1 mg IM .X1 PRN PRN Reason: Hypoglycemia Heparin Sodium (Porcine) (Heparin Na) 5,000 unit SC Q12 [facility] Sodium Chloride () 250 mls @ 15 mls/hr IV .[id number] PRN PRN Reason: SALINE FLUSH Sodium Chloride () 500 mls @ 15 mls/hr IV .[id number] PRN PRN Reason: SALINE FLUSH Ceftriaxone Sodium (Rocephin) 1 gm in 50 mls @ 100 mls/hr IV Q24 [facility] Last Admin: 10/04/18 11:33 Dose: 100 mls/hr Insulin Glargine (Lantus (Bkc)) 10 units SC DAILY [facility] Last Admin: 10/05/18 09:00 Dose: 10 u Insulin Human Lispro (Humalog Kwikpen ([facility])) 0 unit SC ACHS [facility]; Protocol Last Admin: 10/05/18 06:40 Dose: 4 u Metoprolol Tartrate (Lopressor (Beta Keanu)) 25 mg PO BID [facility] Last Admin: 10/05/18 09:00 Dose: 25 mg Sertraline HCl (Zoloft) 100 mg PO DAILY [facility] Last Admin: 10/05/18 08:59 Dose: 100 mg Sodium Chloride () 5 - 15 ml IV UD PRN PRN Reason: SALINE FLUSH Last Admin: 10/05/18 04:32 Dose: 10 ml Tolterodine Tartrate (Detrol La) 4 mg PO DAILY [facility] Last Admin: 10/05/18 08:59 Dose: 4 mg Medical Necessity - Tobacco Use Smoking Status: Never smoker Tobacco Use: Non-smoker Assessment/Plan All Active Problems (Last Reviewed 07/11/18 @ 14:55 by Dede Kasper) Atrial fibrillation (Acute) DKA (diabetic ketoacidoses) (Acute) Renal insufficiency (Acute) Hypertriglyceridemia (Acute) Abnormal mammogram of right breast (Acute) 68-year-old female admitted with a complaint of generalized malaise and weakness found to be in A. fib with RVR, DKA and having severe CRISTIAN. 1. Afib with RVR new onset, has no history of AFib now off amiodarone drip. On PO amiodarone and PO metoprolol cardiology on board 2D echo showed: EF of 75%, with moderately enlarged left atrium and normal right atrium; mild mitral valve stenosis, estimated RVSP of 48mmHg; mild aortic stenosis. cardiology on board CHADVASC scdore now 4, since stroke has been ruled out per neurology per cardiology, to have stress test and further workup once acute illness is over. will start patient on heparin drip; plan is to switch to pO eliquis once kidney function normalises. 2. DKA resolved. A1C was 9.8 started insulin 10IU qhs; hold metformin, januvia and glimepiride for now accuchecks ACHS; ISS 3. CRISTIAN Cr was 5.31 on admisison, is now down to 4.36 FeNA was 1%, indicating pre-renal cause renal USG was unremarkable CPK was WNL being hydrated with IVF also has hyperkalemia nd low bicadrb, even though DKA has resolved. 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 4. Sepsis due to UTI on IV ceftriaxone urine cultured E. coli, sensitive to ceftriaxone blood cultures pending 5. Hyperkalemia: K is 5.8. Will give kayexalate and monitor. In setting of metabolic acidosis and elevated potassium, patient may have RTA 4 also. Nephrology consulted. 6. Acute ischemic CVA NIHSS- [address] brain showed lacunar infarct in insular cortex of right temporal lobe and decreased attenuation in the posterior right temporal parietal lobe; subacute ischemia should be ruled out MRI showed suspicition for 2.9mm actue lacunar infarct in right centrum semiovale discussed with neurology: per Dr Thorpe, this is due to an over read of hte imaging, he doesnt think patient had a stroke, per his review of imaging. MRA of neck was normal, and MRA of head was also normal except for dominant right vertebral artery on high intensity statin and aspirin PT/OT on board 7. Hyponatremia: resolved 8. Hypertension: poorly controlled. systolic in 190s today. on PO metoprolol. Losartan still held o/a of controlled for age. IV hydralazine prn. 9. Urinary retention: On oxybutynin. DVT prophylaxis: will start eliquis Code Visit Inpatient E&M: 28751 Subs Hosp L3
[2018-10-05] MEDS: Ceftriaxone 1 GM/50 ML BAG IV (11:14)
[2018-10-05] MEDS: Heparin Injection (Vial) 5,000 UNIT/ML VIAL 5000 UNIT SC (11:18)
--- NOTE | 2018-10-05 11:28 | PN_ITS ---
Patient Problems: Active and Suspected Problems (Last Reviewed 07/11/18 @ 14:55 by Dede Kasper) Atrial fibrillation (Acute) CVA (cerebral vascular accident) (Suspected) DKA (diabetic ketoacidoses) (Acute) Renal insufficiency (Acute) Hypertriglyceridemia (Acute) Subjective: Patient seen and examined. She has no complaints today and feels well. She has remained in rate and rhythm control and is asymptomatic. Labs and vitals reviewed. Potassium noted to have trended up to 8. Creatinine is trending down. Vitals/I&O's: Vital Signs Temp Pulse Resp BP Pulse Ox 98.7 F 68 20 H 192/92 H 91 10/05/18 08:32 10/05/18 09:00 10/05/18 08:32 10/05/18 09:00 10/05/18 08:32 Oxygen Flow Rate (L/min) 6 Oxygen Delivery Method Nasal Cannula Weight: 242 lb 1.081 oz Body Mass Index (BMI) 40.6 Finger Stick Blood Glucose 158 Intake and Output for Last 24 Hours 10/03/18 10/04/18 10/05/18 23:59 23:59 23:59 Intake Total 6516.8 / 6516.8 699 / 699 Output Total 850 / 850 Balance 5666.8 / 5666.8 699 / 699 General: Alert, Oriented x3, Cooperative, No apparent distress, HEENT: Atraumatic, PERRLA, EOMI, Normocephalic Oral: Dry Mucosa Neck: Supple, No JVD, Negative Carotid Bruits Lungs: Clear to auscultation, Normal air movement, No rhonchi, No wheeze, No rales Cardiovascular: Normal S1, Normal S2, No murmurs, Tachycardic Abdomen: Bowel Sounds Present, Soft, Non Tender, Non-Distended, No Hepato- splenomegaly Extremities: No clubbing, No cyanosis, No edema, Capillary Refill Less than 3 Seconds Skin: No rashes, No breakdown Musculoskeletal: No Tenderness to Palpation of Joints or Extremities Lymphatic: No Cervical, Supraclavicular, or Inguinal Adenopathy Neurological: Cranial nerves II-XII grossly intact, Neuro grossly intact, - - very mildly decreased power in RUE. Psych/Mental Status: Normal Affect, Appropriate, Alert and oriented to time, place, person, mood and affect Microbiology Past 72 Hours 10/03/18 21:15 Urine Catheter - Catheter Urine Culture - Final Escherichia coli Laboratory Results 10/04/18 11:08: POC Glucose 275 H 10/04/18 16:52: POC Glucose 363 H 10/04/18 21:21: POC Glucose 347 H 10/05/18 06:20: WBC 9.7, RBC 3.80 L, Hgb 9.6 L, Hct 29.0 L, MCV 76.3 L, MCH 25.3 L, MCHC 33.1, RDW 16.9 H, RDW Differential 45.1 H, Plt Count 160, MPV 10.6, Immature Gran % (Auto) 0.800, Neut % (Auto) 84.9 H, Lymph % (Auto) 5.2 L, [place] % (Auto) 7.7, Eos % (Auto) 1.2, Baso % (Auto) 0.2, Absolute Neuts (auto) 8.2 H, Absolute Lymphs (auto) 0.50 L, Total Counted Not Reportable 10/05/18 06:20: Sodium 136, Potassium 5.8 H, Chloride 110 H, Carbon Dioxide 18.0 L, Anion Gap 8, BUN 75 H, Creatinine 4.36 H, Estim Creat Clear Calc 10.50, Est GFR (MDRD) Af Amer 13 L, Est GFR (MDRD) Non-Af 11 L, BUN/Creatinine Ratio 17.2, Glucose 298 H, Calcium 8.6 Current Medications Acetaminophen (Tylenol) 500 mg PO Q6H PRN PRN PRN Reason: PAIN Amiodarone HCl (Cordarone) 200 mg PO TID [facility] Last Admin: 10/05/18 06:40 Dose: 200 mg Aspirin (Aspirin, Baby) 81 mg PO DAILY@0800 [facility] Last Admin: 10/05/18 08:59 Dose: 81 mg Atorvastatin Calcium (Lipitor) 40 mg PO QHS [facility] Last Admin: 10/04/18 21:26 Dose: 40 mg Cyclobenzaprine HCl (Cyclobenzaprine Hcl) 5 mg PO TID PRN PRN PRN Reason: SPASMS Dextrose (D50w Syringe) 0 gm IV X1 PRN; Protocol PRN Reason: Hypoglycemia Glucagon () 1 mg IM .X1 PRN PRN Reason: Hypoglycemia Heparin Sodium (Porcine) (Heparin Na) 5,000 unit SC Q12 [facility] Sodium Chloride () 250 mls @ 15 mls/hr IV .[id number] PRN PRN Reason: SALINE FLUSH Sodium Chloride () 500 mls @ 15 mls/hr IV .[id number] PRN PRN Reason: SALINE FLUSH Ceftriaxone Sodium (Rocephin) 1 gm in 50 mls @ 100 mls/hr IV Q24 [facility] Last Admin: 10/04/18 11:33 Dose: 100 mls/hr Insulin Glargine (Lantus (Bkc)) 10 units SC DAILY [facility] Last Admin: 10/05/18 09:00 Dose: 10 u Insulin Human Lispro (Humalog Kwikpen ([facility])) 0 unit SC ACHS [facility]; Protocol Last Admin: 10/05/18 06:40 Dose: 4 u Metoprolol Tartrate (Lopressor (Beta Keanu)) 25 mg PO BID [facility] Last Admin: 10/05/18 09:00 Dose: 25 mg Sertraline HCl (Zoloft) 100 mg PO DAILY [facility] Last Admin: 10/05/18 08:59 Dose: 100 mg Sodium Chloride () 5 - 15 ml IV UD PRN PRN Reason: SALINE FLUSH Last Admin: 10/05/18 04:32 Dose: 10 ml Tolterodine Tartrate (Detrol La) 4 mg PO DAILY [facility] Last Admin: 10/05/18 08:59 Dose: 4 mg Medical Necessity - Tobacco Use Smoking Status: Never smoker Tobacco Use: Non-smoker Assessment/Plan All Active Problems (Last Reviewed 07/11/18 @ 14:55 by Dede Kasper) Atrial fibrillation (Acute) DKA (diabetic ketoacidoses) (Acute) Renal insufficiency (Acute) Hypertriglyceridemia (Acute) Abnormal mammogram of right breast (Acute) 68-year-old female admitted with a complaint of generalized malaise and weakness found to be in A. fib with RVR, DKA and having severe CRISTIAN. 1. Afib with RVR * new onset, has no history of AFib * now off amiodarone drip. On PO amiodarone and PO metoprolol * cardiology on board * 2D echo showed: EF of 75%, with moderately enlarged left atrium and normal right atrium; mild mitral valve stenosis, estimated RVSP of 48mmHg; mild aortic stenosis. * cardiology on board * CHADVASC scdore now 4, since stroke has been ruled out per neurology * per cardiology, to have stress test and further workup once acute illness is over. * will start patient on heparin drip; plan is to switch to pO eliquis once kidney function normalises. * 2. DKA * resolved. * A1C was 9.8 * started insulin 10IU qhs; hold metformin, januvia and glimepiride for now * accuchecks ACHS; ISS * 3. CRISTIAN * Cr was 5.31 on admisison, is now down to 4.36 * FeNA was 1%, indicating pre-renal cause * renal USG was unremarkable * CPK was WNL * being hydrated with IVF * also has hyperkalemia nd low bicadrb, even though DKA has resolved. 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 * * 4. Sepsis due to UTI * on IV ceftriaxone * urine cultured E. coli, sensitive to ceftriaxone * blood cultures pending * 5. Hyperkalemia: * K is 5.8. Will give kayexalate and monitor. * In setting of metabolic acidosis and elevated potassium, patient may have RTA 4 also. * Nephrology consulted. * 6. Acute ischemic CVA * NIHSS- 1 on admission * CT brain showed lacunar infarct in insular cortex of right temporal lobe and decreased attenuation in the posterior right temporal parietal lobe; subacute ischemia should be ruled out * MRI showed suspicition for 2.9mm actue lacunar infarct in right centrum semiovale * discussed with neurology: per Dr Thorpe, this is due to an over read of hte imaging, he doesnt think patient had a stroke, per his review of imaging. * MRA of neck was normal, and MRA of head was also normal except for dominant right vertebral artery * on high intensity statin and aspirin * PT/OT on board * * 7. Hyponatremia: * resolved * 8. Hypertension: * poorly controlled. systolic in 190s today. * on PO metoprolol. Losartan still held o/a of controlled for age. * IV hydralazine prn. 9. Urinary retention: On oxybutynin. DVT prophylaxis: will start eliquis Code Visit Inpatient E&M: 53671 Subs Hosp L3
[2018-10-05] MEDS: hydrALAZINE 20 MG/ML Vial 10 MG IV ×2 (11:39→19:18)
--- NOTE | 2018-10-05 11:55 | PN_ITS ---
Patient Problems: Active and Suspected Problems (Last Reviewed 07/11/18 @ 14:55 by Dede Kasper) Atrial fibrillation (Acute) CVA (cerebral vascular accident) (Suspected) DKA (diabetic ketoacidoses) (Acute) Renal insufficiency (Acute) Hypertriglyceridemia (Acute) Subjective: The patient was seen and examined at the bedside this morning. Events from the last 24 hours have been reviewed. The patient is currently afebrile, but is significantly hypertensive and requiring 6 L/min via nasal cannula. Blood pressure is not under control currently. The patient is currently overall net +6.6 L for the admission. Objective: The patient's most recent lab work, culture data and imaging studies have all been personally reviewed. - Physical Exam General: Alert, Cooperative HEENT: Atraumatic, PERRLA, Normocephalic Oral: No Gingival or Mucosal Lesions/ Ulcerations Neck: Supple, No Nodes, Trachea Midline Lungs: No rhonchi, No wheeze, Diminished, Tachypneic Cardiovascular: Normal S1, Normal S2, No murmurs, Tachycardic Abdomen: Bowel Sounds Present, Soft, Non Tender, Obese Extremities: No clubbing, No cyanosis, No edema Skin: - - No significant change from previous Musculoskeletal: No Tenderness to Palpation of Joints or Extremities Lymphatic: No Cervical, Supraclavicular, or Inguinal Adenopathy Neurological: Neuro grossly intact Psych/Mental Status: Normal Affect, Appropriate Vital Signs Temp Pulse Resp BP Pulse Ox 98.7 F 68 20 H 192/92 H 91 10/05/18 08:32 10/05/18 09:00 10/05/18 08:32 10/05/18 09:00 10/05/18 08:32 Oxygen Flow Rate (L/min) 6 Oxygen Delivery Method Nasal Cannula Weight: 242 lb 1.081 oz Body Mass Index (BMI) 40.6 Finger Stick Blood Glucose 158 Intake and Output for Last 24 Hours 10/03/18 10/04/18 10/05/18 23:59 23:59 23:59 Intake Total 6516.8 / 6516.8 699 / 699 Output Total 850 / 850 Balance 5666.8 / 5666.8 699 / 699 Microbiology Past 72 Hours 10/03/18 21:15 Urine Culture - Final Urine Catheter - Catheter Escherichia coli Laboratory Tests Past 24 Hrs 10/05/18 10/05/18 06:20 06:20 WBC 9.7 RBC 3.80 L Hgb 9.6 L Hct 29.0 L MCV 76.3 L MCH 25.3 L MCHC 33.1 RDW 16.9 H RDW Differential 45.1 H Plt Count 160 MPV 10.6 Immature Gran % (Auto) 0.800 Neut % (Auto) 84.9 H Lymph % (Auto) 5.2 L [place] % (Auto) 7.7 Eos % (Auto) 1.2 Baso % (Auto) 0.2 Absolute Neuts (auto) 8.2 H Absolute Lymphs (auto) 0.50 L Total Counted Not Reportable Sodium 136 Potassium 5.8 H Chloride 110 H Carbon Dioxide 18.0 L Anion Gap 8 BUN 75 H Creatinine 4.36 H Estim Creat Clear Calc 10.50 Est GFR (MDRD) Af Amer 13 L Est GFR (MDRD) Non-Af 11 L BUN/Creatinine Ratio 17.2 Glucose 298 H Calcium 8.6 POC Glucose 10/04/18 10/04/18 21:21 16:52 POC Glucose 347 H 363 H Clinical Impression(s) from Imaging Studies Brain CT 10/03/18 14:45 IMPRESSION: Findings suggestive of a lacunar infarct in the insular cortex of the right temporal lobe. Decreased attenuation in the posterior right temporal parietal lobe. Subacute ischemia should BE ruled out. Electronically Signed: Jordan Jones, at 15:09 EDT , Service support , Renal Ultrasound 10/03/18 17:59 IMPRESSION: Normal ultrasound of the kidneys. Electronically Signed: Sridhar Marinelli DO at 23:20 EDT Tel [phone], Service support , Chest X-Ray 10/03/18 20:52 IMPRESSION: No acute cardiopulmonary disease. Electronically Signed: Sridhar Marinelli DO at 23:19 EDT Tel [phone], Service support , Brain MRI 10/04/18 08:30 IMPRESSION: Suspicion of a 2.9 mm acute lacunar infarction within the right centrum semiovale Electronically Signed: Raffy Pineda MD at 2:17 EDT Tel , Service support , Head MRA 10/04/18 08:30 IMPRESSION: Normal MRA of the head except for a dominant right vertebral artery Electronically Signed: Raffy Pineda MD at 2:21 EDT Tel , Service support , Neck MRA 10/04/18 08:30 IMPRESSION: Normal bilateral cervical carotid and vertebral arteries. Electronically Signed: Raffy Pineda MD at 2:19 EDT Tel , Service support , Cervical Spine MRI 10/05/18 13:05 IMPRESSION: No abnormal cervical cord signal Slightly increased T3-4 intervertebral disc disease with mild ventral cord flattening Stable C3-C7 anterior surgical fixation with endplate fusion Stable multilevel posterior osseous ridging with mild central canal narrowing Stable multilevel severe neural foraminal narrowing Stable osseous degenerative changes Electronically Signed: Wale Bee DO at 11:40 EDT Tel , Service support , Lumbar Spine MRI 10/05/18 13:52 IMPRESSION: No acute fracture or dislocation Extensive multilevel intervertebral disc disease without significant central canal narrowing Multilevel neural foraminal narrowing with impingement of the right L2, right L3 and bilateral L4 nerve roots Slightly exaggerated lumbar lordosis with minimal levoscoliosis Multilevel osseous degenerative changes with multilevel laminectomies Electronically Signed: Wale Bee DO at 11:51 EDT Tel , Service support , Medical Necessity - Tobacco Use Smoking Status: Never smoker Tobacco Use: Non-smoker Assessment/Plan All Active Problems (Last Reviewed 07/11/18 @ 14:55 by Dede Kasper) Atrial fibrillation (Acute) DKA (diabetic ketoacidoses) (Acute) Renal insufficiency (Acute) Hypertriglyceridemia (Acute) Abnormal mammogram of right breast (Acute) RECOMMENDATIONS: 1. Aggressive blood pressure control. 2. Obtain repeat plain film chest x-ray. 3. The patient may require gentle IV diuresis. 4. Wean supplemental oxygen as tolerated to maintain saturations at or above 90%. 5. Encourage incentive spirometer use. 6. Continue nocturnal CPAP therapy per home regimen. IMPRESSIONS: 1. Acute ischemic CVA Clinical concern for ischemic CVA on CT head. Continue medical management per neurology recommendations. 2. New onset atrial fibrillation with RVR/hypertension Cardiology is following to assist with medical management. The patient's blood pressures have been extremely elevated throughout the course of the morning. I would recommend that the patient's blood pressure be more aggressively controlled. 3. Acute respiratory failure The patient supplemental oxygen has steadily increased over the course of the morning. I am concerned about her elevated blood pressure readings along with underlying pulmonary hypertension and likely diastolic dysfunction noted on echo. In addition, the patient is overall net positive 6+ liters for the admission. We will plan to obtain a repeat chest x-ray. Depending on the results, the patient may require gentle diuresis. 4. Acute kidney injury Improving. Likely prerenal in etiology. Responded to volume resuscitation. Continue to monitor urine output. No indication for renal replacement therapy. 5. Personal history of obstructive sleep apnea Continue nocturnal CPAP therapy per home regimen. The patient regularly follows with Dr. Raymond. 6. E. coli cystitis Continue ceftriaxone as ordered. 7. Microcytic anemia/diabetes mellitus/depression/hypertension/hyperlipidemia/obesity Complicates care, management, recovery and prognosis. This note was generated with [employer] software. It may contain incorrect words, spelling, and punctuation that were not noted in checking the note before signing. Code Visit Inpatient E&M: 83752 Subs Hosp L2
[2018-10-05 12:01] LABS: Bedside Glucose 304 mg/dL (70-110)
--- NOTE | 2018-10-05 12:48 | CASEMGMT ---
HUAN spoke with patient about placement for rehab. She agreed that she needed rehab before going home. HUAN told her the facilities that were in network. She wanted TCU. HUAN spoke with [facility] and they will have a bed for patient. HUAN also asked patient about completing advance directives, however she was eating lunch. HUAN told her SW can check back another time. Plan: [facility] TCU pending insurance Radha GR
--- NOTE | 2018-10-05 13:05 | MRI_ITS ---
STUDY: MRI CERVICAL SPINE WITHOUT CONTRAST REASON FOR EXAM: Female, 68 years old. Cervical stenosis. Weakness. TECHNIQUE: Standardized fat and water weighted pulse sequences were obtained in the sagittal and axial planes. COMPARISON: November 14, 2009. FINDINGS: Motion. Craniocervical junction intact. Atlantoaxial articulation intact. Odontoid intact. No abnormal cervical cord signal. Vascular flow voids maintained. Cervical straightening. No significant scoliosis. Anterior surgical fixation extending from C3 through C7. Osseous fusion of the C3-C7 vertebral bodies with bone grafting/fused endplates. Slightly increased T3-4 disc bulge with mild ventral cord flattening. Multilevel posterior osseous ridging with mild unchanged central canal narrowing at C3-4, C4-5, C5-6 and C6-7. Severely limited evaluation of the neural foramina. C2-3 mild left neural foramina narrowing. C3-4 moderate/severe bilateral neural femoral narrowing. C4-5 moderate/severe bilateral neural foramina narrowing. C5-6 mild/moderate bilateral neural foramina narrowing. C6-7 moderate/severe bilateral neural from narrowing. C7-T1 severe bilateral neural femoral narrowing. No acute fracture line. No dislocation. No cortical destruction. Diffuse multilevel facet joint arthrosis without marked change. Stable grade 1 spondylolisthesis at C7-T1 without marked change. Minimal paraspinal muscle atrophy. No acute soft tissue abnormality. MRI/Spine Cervical (Routine) IMPRESSION: No abnormal cervical cord signal Slightly increased T3-4 intervertebral disc disease with mild ventral cord flattening Stable C3-C7 anterior surgical fixation with endplate fusion Stable multilevel posterior osseous ridging with mild central canal narrowing Stable multilevel severe neural foraminal narrowing Stable osseous degenerative changes Electronically Signed: Wale Bee DO at 11:40 EDT Tel , Service support ,
[2018-10-05] MEDS: HEPARIN/D5w 25,000 UNITS 25,000 UNITS/250 ML IV.SOLN. 15 UNITS IV (13:08)
--- NOTE | 2018-10-05 13:42 | EKG12_ITS ---
Test Reason : Blood Pressure : / mmHG Vent. Rate : 101 BPM Atrial Rate : 101 BPM P-R Int : 150 ms QRS Dur : 080 ms QT Int : 322 ms P-R-T Axes : 061 034 004 degrees QTc Int : 417 ms Sinus tachycardia Otherwise normal ECG When compared with ECG of 05-OCT-2018 13:48, MANUAL COMPARISON REQUIRED, DATA IS UNCONFIRMED Confirmed by SHERIF CALLOWAY, MILDRED ([id number]), editorial cartoonist RADHA HOPKINS ([id number]) on 10/11/2018 12:08:47 PM Referred By: THADDEUS Confirmed By:MILDRED GORMAN MD
--- NOTE | 2018-10-05 13:45 | NURSING ---
patient hr irregular nih completed placed back on cpap o2 sats low 88 to 90% on 10 inccreased to 12l still 90 was trying to talk to visitors called for ekg in afib will notify
--- NOTE | 2018-10-05 13:51 | RAD_ITS ---
STUDY: X-RAY CHEST REASON FOR EXAM: Female, 68 years old. Dyspnea. TECHNIQUE: Single AP portable view of the chest. COMPARISON: October 03, 2018. FINDINGS: Cervical fixation hardware. Mild cardiomegaly. Pulmonary vascularity slightly prominent. Aorta unremarkable. Multifocal airspace opacities predominating about the right perihilar region. No significant pleural effusions. Upper abdomen unremarkable. Osseous structures slightly demineralized. No pneumothorax. Postsurgical changes at the shoulders and spine. RAD/Chest 1 View (Portable) IMPRESSION: Multifocal airspace opacities predominating at the right perihilar region (suspected asymmetric pulmonary edema versus less likely infection) Mild cardiomegaly Degenerative/postsurgical changes, as above Electronically Signed: Wale Bee DO at 14:32 EDT Tel , Service support ,
--- NOTE | 2018-10-05 13:52 | MRI_ITS ---
STUDY: MRI LUMBAR SPINE WITHOUT CONTRAST REASON FOR EXAM: Female, 68 years old. Stenosis. Pain. Fall. TECHNIQUE: Standardized fat and water weighted pulse sequences were obtained in the sagittal and axial planes. COMPARISON: December 30, 2011. FINDINGS: Slightly exaggerated lumbar lordosis. Minimal levoscoliosis. Conus medullaris terminates normally at the L1 level. No acute fracture, dislocation or osseous destruction. T12-L1: Normal endplates. Mild disc desiccation. Normal bilateral facet joints. Normal central canal and bilateral lateral recesses. Normal bilateral intervertebral neural foramina. L1-2: Mild endplate spondylosis. Disc bulge without central canal narrowing. Normal bilateral facet joints. Normal central canal and bilateral lateral recesses. Bilateral neural foraminal narrowing without impingement. L2-3: Moderate endplate spondylosis. Disc bulge, annular fissure, without central canal narrowing. Severe facet joint arthrosis. Normal central canal and bilateral lateral recesses. Bilateral neural foraminal narrowing with impingement on the right. L3-4: Normal endplates. Disc bulge without central canal narrowing. Severe facet joint arthrosis. Normal central canal and bilateral lateral recesses. Bilateral neural foraminal narrowing with impingement on the right. L4-5: Normal endplates. Disc bulge without central canal narrowing. Severe facet joint arthrosis with joint effusions. Normal central canal and bilateral lateral recesses. Bilateral neural foramina narrowing with impingement. L5-S1: Normal endplates. Disc bulge without central canal narrowing. Severe facet joint arthrosis. Normal central canal and bilateral lateral recesses. Bilateral neural foraminal narrowing without impingement, left greater than right. No acute fracture line. Paraspinal muscle atrophy. Multilevel laminectomy extending from L2 through L5. Aorta calcified. Sacrum intact. MRI/Spine Lumbar (Routine) IMPRESSION: No acute fracture or dislocation Extensive multilevel intervertebral disc disease without significant central canal narrowing Multilevel neural foraminal narrowing with impingement of the right L2, right L3 and bilateral L4 nerve roots Slightly exaggerated lumbar lordosis with minimal levoscoliosis Multilevel osseous degenerative changes with multilevel laminectomies Electronically Signed: Wale Bee DO at 11:51 EDT Tel , Service support ,
--- NOTE | 2018-10-05 14:05 | PN.NEURO_ITS ---
Patient Problems: Active and Suspected Problems (Last Reviewed 07/11/18 @ 14:55 by Dede Kasper) Atrial fibrillation (Acute) CVA (cerebral vascular accident) (Suspected) DKA (diabetic ketoacidoses) (Acute) Renal insufficiency (Acute) Hypertriglyceridemia (Acute) Subjective: No issues overnight. - Physical Exam General: Alert HEENT: Normocephalic Neck: Supple Lungs: Normal air movement Cardiovascular: Normal S1, Normal S2 Abdomen: Bowel Sounds Present Extremities: No cyanosis Neurological: - - Conscious, alert, CN?2-12 grossly intact, power 5 x 5 in both upper extremities and lower extremities, no sensory loss, no cerebellar signs, no speech disturbances at present, gait deferred, reflexes + B/L B/S/T/K/A, N IHSS 0 at present, mRS 2 at baseline Psych/Mental Status: Normal Affect Vital Signs Temp Pulse Resp BP Pulse Ox 98.8 F 104 H 19 H 185/84 H 90 10/05/18 13:20 10/05/18 13:20 10/05/18 13:20 10/05/18 13:20 10/05/18 13:20 Oxygen Flow Rate (L/min) 10 Oxygen Delivery Method Nasal Cannula Weight: 109.8 kg Body Mass Index (BMI) 40.6 Finger Stick Blood Glucose 158 Intake and Output for Last 24 Hours 10/03/18 10/04/18 10/05/18 23:59 23:59 23:59 Intake Total 6516.8 / 6516.8 1499 / 1499 Output Total 850 / 850 600 / 600 Balance 5666.8 / 5666.8 899 / 899 Microbiology Past 72 Hours 10/03/18 21:15 Urine Culture - Final Urine Catheter - Catheter Escherichia coli Laboratory Tests Past 24 Hrs 10/05/18 10/05/18 06:20 06:20 WBC 9.7 RBC 3.80 L Hgb 9.6 L Hct 29.0 L MCV 76.3 L MCH 25.3 L MCHC 33.1 RDW 16.9 H RDW Differential 45.1 H Plt Count 160 MPV 10.6 Immature Gran % (Auto) 0.800 Neut % (Auto) 84.9 H Lymph % (Auto) 5.2 L [place] % (Auto) 7.7 Eos % (Auto) 1.2 Baso % (Auto) 0.2 Absolute Neuts (auto) 8.2 H Absolute Lymphs (auto) 0.50 L Total Counted Not Reportable Sodium 136 Potassium 5.8 H Chloride 110 H Carbon Dioxide 18.0 L Anion Gap 8 BUN 75 H Creatinine 4.36 H Estim Creat Clear Calc 10.50 Est GFR (MDRD) Af Amer 13 L Est GFR (MDRD) Non-Af 11 L BUN/Creatinine Ratio 17.2 Glucose 298 H Calcium 8.6 POC Glucose 10/05/18 10/04/18 10/04/18 11:42 21:21 16:52 POC Glucose 304 H 347 H 363 H Medical Necessity - Tobacco Use Smoking Status: Never smoker Tobacco Use: Non-smoker Assessment/Plan All Active Problems (Last Reviewed 07/11/18 @ 14:55 by Dede Kasper) Atrial fibrillation (Acute) DKA (diabetic ketoacidoses) (Acute) Renal insufficiency (Acute) Hypertriglyceridemia (Acute) Abnormal mammogram of right breast (Acute) The patient is a 68 year old F with PMH HTN, HLD, DM, history of cervical and lumbar surgery, history of cervical and lumbar spinal stenosis, LEIGH ANN on CPAP, depression admitted with generalized malaise. Neurology consulted for possible stroke. At present patient denies any headache, dizziness, speech disturbances, visual disturbances, focal motor weakness or sensory loss. She does complain of chronic neck pain and low back pain. Denies any radicular symptoms. Per patient she lives alone, denies any frequent falls but has been having few falls lately as her legs would give away, does drive, uses cane or walker to ambulate, and does need assistance for her ADLs. Per patient she was taking aspirin at baseline but has not been taking it for the past few days. History is also obtained from medical records and documentation. Per ED documentation on admission NIHSS was 1, CT head done on admission reported to show findings suggestive of lacunar infarct in the insular cortex of the right temporal lobe and decreased attenuation in the posterior right temporal lobe, subacute ischemia should be ruled out. On admission she was found to be in A. fib with RVR, labs showed sodium 129, creatinine 5.31, glucose was 421, WBC 14, UA showed LE positive, nitrite positive and was turbid Impression Possible very small Right ELECTRICAL PROSPECTING OBSERVER (Right MCA) stroke Possible metabolic encephalopathy-DKA, CRISTIAN, sepsis secondary to UTI New onset A. fib Cervical stenosis and lumbar foraminal stenosis Plan ?MRI brain without contrast-reported as suspicion of a 2.9 mm acute lacunar infarction within the right centrum semiovale -MRA head/neck- reported no hemodynamically significant stenosis or occlusion ?MRI C-spine without contrast- No abnormal cervical cord signal. Slightly increased T3-4 intervertebral disc disease with mild ventral cord flattening. Stable C3-C7 anterior surgical fixation with endplate fusion. Stable multilevel posterior osseous ridging with mild central canal narrowing. Stable multilevel severe neural foraminal narrowing. Stable osseous degenerative changes -MRI L-spine without contrast-No acute fracture or dislocation. Extensive multilevel intervertebral disc disease without significant central canal narrowing. Multilevel neural foraminal narrowing with impingement of the right L2, right L3 and bilateral L4 nerve roots. Slightly exaggerated lumbar lordosis with minimal levoscoliosis. Multilevel osseous degenerative changes with multilevel laminectomies -Spine surgery consult ?On Lipitor. [id number] VASc score atleast 5. Will need to be on AC with Eliquis once renal function improves. On Heparin drip at present. Avoid bolus. ?TTE-EF 75%, LA moderately enlarged -LDL-test not performed due to high triglycerides of 508, [id number] ?Stroke risk factors discussed and stroke education provided ?Goal BP less than 130/80 mmHg and HbA1c less than 7% ?PT/OT/ST ?GI/DVT prophylaxis ?Fall precautions ?Further medical management per hospitalist team ?Follow-up with neurology as outpatient in 4 weeks ?Please call with questions if any ?Thank you for allowing us to part spent in patient's care management
[2018-10-05] MEDS: Metoprolol Tartrate 5 MG/5 ML Vial IV ×3 (14:22→14:38)
[2018-10-05 14:32] LABS: BNP,B-Type NATRIURETIC PEPTIDE 270.6 pg/mL (0-100)
--- NOTE | 2018-10-05 14:43 | NURSING ---
iv lopressor given x 3 on cpap bp decreased hr decreasing o2 sat 95% will continue to monitor
[2018-10-05 16:37] LABS: Anion Gap 9 (5-15); BUN 71 mg/dL (7-18); BUN/Creat Ratio 19.2 RATIO (10-20); Calcium,Total 8.8 mg/dL (8.5-10.1); Chloride 108 mmol/L (98-107); EST Glomerular Filtration Rate 13 mL/min (>60); Est Glom Filt Rate - Afr Amer 16 mL/min (>60); Estimated Creatinine Clearance 12.37 ml/min; Glucose 348 mg/dL (74-106); Potassium 5.6 mmol/L (3.5-5.1); Sodium Level 134 mmol/L (136-145)
[2018-10-05 16:50] LABS: Bedside Glucose 278 mg/dL (70-110)
[2018-10-05 16:56] LABS: Bedside Glucose 309 mg/dL (70-110)
--- NOTE | 2018-10-05 17:43 | EKG12_ITS ---
Test Reason : Blood Pressure : / mmHG Vent. Rate : 146 BPM Atrial Rate : 277 BPM P-R Int : 000 ms QRS Dur : 082 ms QT Int : 276 ms P-R-T Axes : 000 050 -07 degrees QTc Int : 430 ms Atrial fibrillation with rapid ventricular response Abnormal ECG When compared with ECG of 05-OCT-2018 05:49, MANUAL COMPARISON REQUIRED, DATA IS UNCONFIRMED Confirmed by SHERIF CALLOWAY, MILDRED ([id number]), video effects editor RADHA HOPKINS ([id number]) on 10/11/2018 12:09:22 PM Referred By: KRISHNA Confirmed By:MILDRED GORMAN MD
[2018-10-05 19:38] LABS: Partial Thromboplast Time 45.5 Seconds (24.1-36.2)
[2018-10-05] MEDS: Heparin Injection (Vial) 5,000 UNIT/ML VIAL IV (20:14)
--- NOTE | 2018-10-05 21:17 | CPS ---
Patient switched to medium mask.
[2018-10-05] MEDS: Atorvastatin Calcium 40 MG Tablet PO (21:45)
[2018-10-05] MEDS: Metoprolol Tartrate 100 MG Tablet PO (21:47)
[2018-10-05] MEDS: hydrALAZINE 50 MG Tablet PO (21:48)
[2018-10-05 22:00] LABS: Bedside Glucose 332 mg/dL (70-110)
[2018-10-06] VITALS (36 sets, daily range): BP systolic 107–184; BP diastolic 63–154; PULSE 75–141; RESP 22–32; TEMP 36.4–37.2; O2SAT 94–100
[2018-10-06 02:20] LABS: Absolute Lymphocyte Count 0.77 X10^3/ul (0.83-4.51); Basophil# 0.02 X10^3/uL; Basophil% 0.2 % (0-1); Eosinophil# 0.08 X10^3/uL; Eosinophils% 0.8 % (0-5); Hematocrit 29.7 % (37-47); Hemoglobin 10.1 g/dl (12.0-15.0); Lymphocyte # 0.77 X10^3/ul (4.0); Lymphocyte % 7.8 % (19-41); Mean Corpuscular Hgb 25.5 pg (27.0-32.0); Mean Platelet Vol. 10.8 fl (6.2-12.0); Monocyte# 0.95 X10^3/uL; Monocyte% 9.6 % (0-10); Neutrophil # 7.95 X10^3/uL (2.7-7.7); POSITIVE COUNT NO; POSITIVE DIFFERENTIAL NO; POSITIVE MORPHOLOGY NO; Platelet Count 178 K/mm3 (150-450); RBC Distribution Width CV 16.7 % (11.6-14.6); RBC Distribution Width SD 44.6 fl (35.1-43.9); Red Blood Count 3.96 M/mm3 (4.2-5.4); White Blood Count 9.9 K/mm3 (4.4-11.0)
[2018-10-06 02:28] LABS: Partial Thromboplast Time 49.6 Seconds (24.1-36.2)
[2018-10-06] MEDS: Heparin Injection (Vial) 5,000 UNIT/ML VIAL IV ×3 (02:35→23:34)
[2018-10-06 03:42] LABS: Anion Gap 11 (5-15); BUN 70 mg/dL (7-18); Calcium,Total 8.5 mg/dL (8.5-10.1); Chloride 111 mmol/L (98-107); Creatinine, Serum 3.18 mg/dL (0.55-1.02); EST Glomerular Filtration Rate 16 mL/min (>60); Est Glom Filt Rate - Afr Amer 19 mL/min (>60); Glucose 260 mg/dL (74-106); Potassium 5.4 mmol/L (3.5-5.1); Sodium Level 140 mmol/L (136-145)
[2018-10-06] MEDS: HEPARIN/D5w 25,000 UNITS 25,000 UNITS/250 ML IV.SOLN. 15 UNITS IV ×2 (04:44→23:00)
[2018-10-06] MEDS: 0.9% NaCl Peripheral Flush Adult/Peds IV ×4 (05:03→10:27)
[2018-10-06] MEDS: hydrALAZINE 50 MG Tablet PO ×3 (05:51→23:29)
[2018-10-06 06:41] LABS: Bedside Glucose 273 mg/dL (70-110)
--- NOTE | 2018-10-06 07:38 | CT_ITS ---
STUDY: CT CHEST WITHOUT CONTRAST REASON FOR EXAM: Female, 68 years old. Shortness of breath. RADIATION DOSAGE (If Supplied By Facility): CTDIvol = ( 19.94 ) mGy, DLP = ( 652.67 ) mGycm TECHNIQUE: Transaxial imaging was performed without the administration of intravenous contrast material. Multiplanar coronal and sagittal images were reformatted. Individualized dose optimization techniques were used for this CT. COMPARISON: Comparison is made with prior chest radiograph dated October 05, 2018. FINDINGS: There is evidence of a dense airspace consolidation in the right upper lobe more prominent posteriorly. Airspace disease in both lower lobes worse on the right side. Focal area of infiltrate in the posterior aspect of the left upper lobe. Small right pleural effusion. Normal heart and pericardium. There are multiple small lymph nodes within the mediastinum, which are normal in size and morphology most compatible with reactive lymph hyperplasia. Normal hilar regions. Normal unenhanced pulmonary arteries. There is atherosclerotic calcification of the aortic arch with tortuosity and elongation of the aortic arch and descending thoracic aorta. There are multi-level degenerative changes of the thoracic spine. There is no demonstrated abnormality of the visualized upper abdomen. CT/Chest without Contrast IMPRESSION: Bilateral airspace disease worse in the right hemithorax with a small right pleural effusion. Electronically Signed: Jordan Jones, at 9:28 EDT , Service support ,
--- NOTE | 2018-10-06 08:01 | CPS ---
pt decreased to 7 lpm. Saturation 97% on 7 lpm
--- NOTE | 2018-10-06 08:10 | PN_ITS ---
Patient Problems: Active and Suspected Problems (Last Reviewed 07/11/18 @ 14:55 by Dede Kasper) Atrial fibrillation (Acute) CVA (cerebral vascular accident) (Suspected) DKA (diabetic ketoacidoses) (Acute) Renal insufficiency (Acute) Hypertriglyceridemia (Acute) Subjective: The patient was seen and examined at the bedside this morning. Events from the last 24 hours have been reviewed. The patient's oxygen requirement has been steadily increasing over the last 48 hours. Yesterday, the patient's blood pressures were elevated throughout the morning and early afternoon. She also reportedly went back into afib yesterday afternoon. I did obtain a CXR which revealed potential right sided airspace infiltrate vs asymmetric edema. BNP was also mildly elevated. The patient is currently overall net +6.7 L for the admission. Creatinine continues to improve. Although the patient does appear to be labored from a respiratory perspective, she is unable to tell me if she feels short of breath. She denies the presence of a cough. She remains tachycardic with heart rates in the 120s and 30s. She is currently being prepped to be taken for CT chest. On review of patient's CT, there does appear to be multifocal right sided airspace disease with a mild degree of left basilar disease. Order were then placed for further pulmonary infectious work up. Antibiotics were also broadened. Objective: The patient's most recent lab work, culture data and imaging studies have all been personally reviewed. - Physical Exam General: Alert, Cooperative, - - Appears mildly distressed in bed. HEENT: Atraumatic, PERRLA, Normocephalic Oral: No Gingival or Mucosal Lesions/ Ulcerations Neck: Supple, No Nodes, Trachea Midline Lungs: Diminished, Rales - RML + RLL, Tachypneic Cardiovascular: Normal S1, Normal S2, No murmurs, Tachycardic Abdomen: Bowel Sounds Present, Soft, Non Tender, Obese Extremities: No clubbing, No cyanosis, No edema Skin: - - No significant change from previous. Musculoskeletal: No Tenderness to Palpation of Joints or Extremities Lymphatic: No Cervical, Supraclavicular, or Inguinal Adenopathy Neurological: Cranial nerves II-XII grossly intact, Neuro grossly intact Psych/Mental Status: Normal Affect, Appropriate Vital Signs Temp Pulse Resp BP Pulse Ox 97.8 F 126 H 28 H 139/83 H 99 10/06/18 07:00 10/06/18 07:02 10/06/18 07:00 10/06/18 07:00 10/06/18 07:10 Oxygen Flow Rate (L/min) 10 Oxygen Delivery Method Nasal Cannula Weight: 245 lb 13.047 oz Body Mass Index (BMI) 40.6 Finger Stick Blood Glucose 158 Intake and Output for Last 24 Hours 10/04/18 10/05/18 10/06/18 23:59 23:59 23:59 Intake Total 6516.8 / 6516.8 2324 / 2324 459 / 459 Output Total 850 / 850 1350 / 1350 350 / 350 Balance 5666.8 / 5666.8 974 / 974 109 / 109 Microbiology Past 72 Hours 10/03/18 21:15 Urine Culture - Final Urine Catheter - Catheter Escherichia coli Laboratory Tests Past 24 Hrs 10/05/18 10/05/18 10/05/18 06:20 16:15 19:15 WBC RBC Hgb Hct MCV MCH MCHC RDW RDW Differential Plt Count MPV Immature Gran % (Auto) Neut % (Auto) Lymph % (Auto) [place] % (Auto) Eos % (Auto) Baso % (Auto) Absolute Neuts (auto) Absolute Lymphs (auto) Total Counted APTT 45.5 H Sodium 134 L Potassium 5.6 H Chloride 108 H Carbon Dioxide 17.0 L Anion Gap 9 BUN 71 H Creatinine 3.70 H Estim Creat Clear Calc 12.37 Est GFR (MDRD) Af Amer 16 L Est GFR (MDRD) Non-Af 13 L BUN/Creatinine Ratio 19.2 Glucose 348 H Calcium 8.8 B-Natriuretic Peptide 270.6 H 10/06/18 10/06/18 10/06/18 02:12 02:12 02:12 WBC 9.9 RBC 3.96 L Hgb 10.1 L Hct 29.7 L MCV 75.0 L MCH 25.5 L MCHC 34.0 RDW 16.7 H RDW Differential 44.6 H Plt Count 178 MPV 10.8 Immature Gran % (Auto) 1.600 H Neut % (Auto) 80.0 H Lymph % (Auto) 7.8 L [place] % (Auto) 9.6 Eos % (Auto) 0.8 Baso % (Auto) 0.2 Absolute Neuts (auto) 8.0 H Absolute Lymphs (auto) 0.77 L Total Counted Not Reportable APTT 49.6 H Sodium 140 Potassium 5.4 H Chloride 111 H Carbon Dioxide 18.0 L Anion Gap 11 BUN 70 H Creatinine 3.18 H Estim Creat Clear Calc 14.40 Est GFR (MDRD) Af Amer 19 L Est GFR (MDRD) Non-Af 16 L BUN/Creatinine Ratio 22.0 H Glucose 260 H Calcium 8.5 B-Natriuretic Peptide POC Glucose 10/06/18 10/05/18 10/05/18 06:34 21:41 16:46 POC Glucose 273 H 332 H 309 H 10/05/18 10/05/18 11:42 06:38 POC Glucose 304 H 278 H Clinical Impression(s) from Imaging Studies Brain CT 10/03/18 14:45 IMPRESSION: Findings suggestive of a lacunar infarct in the insular cortex of the right temporal lobe. Decreased attenuation in the posterior right temporal parietal lobe. Subacute ischemia should BE ruled out. Electronically Signed: Jordan Jones at 15:09 EDT , Service support , Renal Ultrasound 10/03/18 17:59 IMPRESSION: Normal ultrasound of the kidneys. Electronically Signed: Sridhar Marinelli DO at 23:20 EDT Tel [phone], Service support , Chest X-Ray 10/03/18 20:52 IMPRESSION: No acute cardiopulmonary disease. Electronically Signed: Sridhar Marinelli DO at 23:19 EDT Tel [phone], Service support , Brain MRI 10/04/18 08:30 IMPRESSION: Suspicion of a 2.9 mm acute lacunar infarction within the right centrum semiovale Electronically Signed: Raffy Pineda MD at 2:17 EDT Tel , Service support , Head MRA 10/04/18 08:30 IMPRESSION: Normal MRA of the head except for a dominant right vertebral artery Electronically Signed: Raffy Pineda MD at 2:21 EDT Tel , Service support , Neck MRA 10/04/18 08:30 IMPRESSION: Normal bilateral cervical carotid and vertebral arteries. Electronically Signed: Raffy Pineda MD at 2:19 EDT Tel , Service support , Cervical Spine MRI 10/05/18 13:05 IMPRESSION: No abnormal cervical cord signal Slightly increased T3-4 intervertebral disc disease with mild ventral cord flattening Stable C3-C7 anterior surgical fixation with endplate fusion Stable multilevel posterior osseous ridging with mild central canal narrowing Stable multilevel severe neural foraminal narrowing Stable osseous degenerative changes Electronically Signed: Wale Bee DO at 11:40 EDT Tel , Service support , Chest X-Ray 10/05/18 13:51 IMPRESSION: Multifocal airspace opacities predominating at the right perihilar region (suspected asymmetric pulmonary edema versus less likely infection) Mild cardiomegaly Degenerative/postsurgical changes, as above Electronically Signed: Wale Bee DO at 14:32 EDT Tel , Service support , Lumbar Spine MRI 10/05/18 13:52 IMPRESSION: No acute fracture or dislocation Extensive multilevel intervertebral disc disease without significant central canal narrowing Multilevel neural foraminal narrowing with impingement of the right L2, right L3 and bilateral L4 nerve roots Slightly exaggerated lumbar lordosis with minimal levoscoliosis Multilevel osseous degenerative changes with multilevel laminectomies Electronically Signed: Wale Bee DO at 11:51 EDT Tel , Service support , Medical Necessity - Tobacco Use Smoking Status: Never smoker Tobacco Use: Non-smoker Assessment/Plan All Active Problems (Last Reviewed 07/11/18 @ 14:55 by Dede Kasper) Atrial fibrillation (Acute) DKA (diabetic ketoacidoses) (Acute) Renal insufficiency (Acute) Hypertriglyceridemia (Acute) Abnormal mammogram of right breast (Acute) RECOMMENDATIONS: 1. Discontinue ceftriaxone and broaden antibiotics to include Zosyn. 2. Check strep and urine Legionella antigens, along with MRSA screen. 3. Obtain and send sputum for culture. 4. Encourage chest physiotherapy with PEP and IS. 5. Wean supplemental oxygen to maintain saturations at or above 90%. 6. Continue nocturnal CPAP therapy per home regimen. 7. Defer management of atrial fibrillation/hypertension to cardiology. 8. Consider gentle diuresis as tolerated by renal function. IMPRESSIONS: 1. Acute hypoxemic respiratory failure secondary to multifocal pneumonia The patient's chest CT from this morning was personally reviewed and did reveal evidence of multifocal airspace disease most pronounced throughout the right hemithorax with mild residual disease noted in the left base. Given the rita warren's increasing supplemental oxygen requirement, recommend broadening antibiotics to Zosyn. Will check strep and urine Legionella antigens as well. MRSA screen will also be checked. The patient was encouraged to provide a sputum sample for culture. Continue to wean supplemental oxygen to maintain saturations at or above 90%. Orders have been placed for PEP and IS therapy. 2. E. coli cystitis Continue antibiotic coverage as noted above. 3. Acute ischemic CVA Continue current medical management per neurology recommendations. 4. New onset atrial fibrillation with RVR/hypertension Cardiology is following to assist with medical management. 5. Acute kidney injury Improving. Likely prerenal in etiology. Responded to volume resuscitation. Continue to monitor urine output. No indication for renal replacement therapy. 6. Personal history of obstructive sleep apnea Continue nocturnal CPAP therapy per home regimen. The patient regularly follows with Dr. Raymond. 7. Microcytic anemia/diabetes mellitus/depression/hypertension/hy perlipidemia/obesity Complicates care, management, recovery and prognosis. Physical therapy to continue to work with the patient. This note was generated with Ramenation software. It may contain incorrect words, spelling, and punctuation that were not noted in checking the note before signing. Code Visit Inpatient E&M: 05108 [facility] L[facility]
[2018-10-06] MEDS: Metoprolol Tartrate 100 MG Tablet PO ×2 (08:37→23:31)
[2018-10-06 08:40] LABS: Base Excess -7 mmol/L (-2 to +2); Bicarbonate 17.1 mmol/L (22-26); Blood Gas Specimen Type ART; O2 Delivery Device Nasal Can; PO2 113 mmHG (75-100); SITE L Radial; SO2 99 % (95-99); Time Given 840; Total Carbon Dioxide 18 mmol/L; pCO2 26.5 mmHg (35-45); pH 7.42 (7.35-7.45)
[2018-10-06 09:02] LABS: Partial Thromboplast Time 39.6 Seconds (24.1-36.2)
[2018-10-06] MEDS: Sodium Polystyrene Sulfonate 15 GM/60 ML UDC 30 GM PO (09:21)
[2018-10-06] MEDS: Insulin Lispro 100 UNIT/ML INSULN.PEN SC ×4 (09:34→23:32)
[2018-10-06] MEDS: hydrALAZINE 20 MG/ML Vial 10 MG IV (10:13)
[2018-10-06] MEDS: Sertraline 100 MG Tablet PO (10:29)
[2018-10-06] MEDS: Aspirin 81 MG TAB.CHEW PO (10:29)
[2018-10-06] MEDS: Tolterodine Tartrate 4 MG CAP.SA PO (10:29)
--- NOTE | 2018-10-06 10:44 | PCM.PN.HOSP ---
Patient Problems: Active and Suspected Problems (Last Reviewed 07/11/18 @ 14:55 by Dede Kasper) Atrial fibrillation (Acute) CVA (cerebral vascular accident) (Suspected) DKA (diabetic ketoacidoses) (Acute) Renal insufficiency (Acute) Hypertriglyceridemia (Acute) Subjective: Patient seen and examined. She has no complaints and feels well. However, patient noted to be requiring increased amounts of oxygen. She was on BIPAP overnight and required 6-10L of oxygen after being taken off BIPAP. She was noted to be tachypneic and has been breathing in the high 20s and 30s. However she denies feeling short of breath and denies any cough or chest pain, palpitations or dizziness, diarrhea vomiting. Review of systems otherwise negative. Labs and vitals reviewed. Vitals/I&O's: Vital Signs Temp Pulse Resp BP Pulse Ox 97.8 F 122 H 28 H 139/83 H 99 10/06/18 07:00 10/06/18 10:13 10/06/18 07:00 10/06/18 07:00 10/06/18 07:10 Oxygen Flow Rate (L/min) 5 Oxygen Delivery Method Nasal Cannula Weight: 245 lb 13.047 oz Body Mass Index (BMI) 40.6 Finger Stick Blood Glucose 158 Intake and Output for Last 24 Hours 10/04/18 10/05/18 10/06/18 23:59 23:59 23:59 Intake Total 6516.8 / 6516.8 2324 / 2324 459 / 459 Output Total 850 / 850 1350 / 1350 350 / 350 Balance 5666.8 / 5666.8 974 / 974 109 / 109 General: Alert, Cooperative HEENT: Atraumatic, PERRLA, Normocephalic Oral: No Gingival or Mucosal Lesions/ Ulcerations Neck: Supple, No Nodes, Trachea Midline Lungs: No rhonchi, No wheeze, Diminished, Tachypneic, on 6L of oxygen by nasal canula Cardiovascular: Normal S1, Normal S2, No murmurs, Tachycardic Abdomen: Bowel Sounds Present, Soft, Non Tender, Obese Extremities: No clubbing, No cyanosis, No edema Skin: - - No significant change from previous Musculoskeletal: No Tenderness to Palpation of Joints or Extremities Lymphatic: No Cervical, Supraclavicular, or Inguinal Adenopathy Neurological: Neuro grossly intact Psych/Mental Status: Normal Affect, Appropriate Microbiology Past 72 Hours 10/03/18 18:31 Blood Culture (Wb) - Right Hand Blood Culture - Preliminary No growth in 48 hours. 10/03/18 18:20 Blood Culture (Wb) - Right Wrist Blood Culture - Preliminary No growth in 48 hours. 10/03/18 21:15 Urine Catheter - Catheter Urine Culture - Final Escherichia coli Laboratory Results 10/05/18 06:20: B-Natriuretic Peptide 270.6 H 10/05/18 06:38: POC Glucose 278 H 10/05/18 11:42: POC Glucose 304 H 10/05/18 16:15: Sodium 134 L, Potassium 5.6 H, Chloride 108 H, Carbon Dioxide 17.0 L, Anion Gap 9, BUN 71 H, Creatinine 3.70 H, Estim Creat Clear Calc 12.37, Est GFR (MDRD) Af Amer 16 L, Est GFR (MDRD) Non-Af 13 L, BUN/Creatinine Ratio 19.2, Glucose 348 H, Calcium 8.8 10/05/18 16:46: POC Glucose 309 H 10/05/18 19:15: APTT 45.5 H 10/05/18 21:41: POC Glucose 332 H 10/06/18 02:12: WBC 9.9, RBC 3.96 L, Hgb 10.1 L, Hct 29.7 L, MCV 75.0 L, MCH 25.5 L, MCHC 34.0, RDW 16.7 H, RDW Differential 44.6 H, Plt Count 178, MPV 10.8, Immature Gran % (Auto) 1.600 H, Neut % (Auto) 80.0 H, Lymph % (Auto) 7.8 L, [place] % (Auto) 9.6, Eos % (Auto) 0.8, Baso % (Auto) 0.2, Absolute Neuts (auto) 8.0 H, Absolute Lymphs (auto) 0.77 L, Total Counted Not Reportable 10/06/18 02:12: Sodium 140, Potassium 5.4 H, Chloride 111 H, Carbon Dioxide 18.0 L, Anion Gap 11, BUN 70 H, Creatinine 3.18 H, Estim Creat Clear Calc 14.40, Est GFR (MDRD) Af Amer 19 L, Est GFR (MDRD) Non-Af 16 L, BUN/Creatinine Ratio 22.0 H, Glucose 260 H, Calcium 8.5 10/06/18 02:12: APTT 49.6 H 10/06/18 06:34: POC Glucose 273 H 10/06/18 08:33: Specimen Type ART, Sample Site L Radial, pH 7.42, Bicarbonate Actual 17.1 L, POC Total CO2 18, Base Excess -7 L, O2 Saturation 99, ABG pCO2 26.5 L, ABG pO2 113 H, O2 Delivery Device Nasal Can, Liter Flow 6.0, Blood Gas Notified Whom [facility], Blood Gas Notified Time 840 10/06/18 08:36: APTT 39.6 H Current Medications Acetaminophen (Tylenol) 500 mg PO Q6H PRN PRN PRN Reason: PAIN Aspirin (Aspirin, Baby) 81 mg PO DAILY@0800 [facility] Last Admin: 10/06/18 10:29 Dose: 81 mg Atorvastatin Calcium (Lipitor) 40 mg PO QHS [facility] Last Admin: 10/05/18 21:45 Dose: 40 mg Cyclobenzaprine HCl (Cyclobenzaprine Hcl) 5 mg PO TID PRN PRN PRN Reason: SPASMS Dextrose (D50w Syringe) 0 gm IV X1 PRN; Protocol PRN Reason: Hypoglycemia Glucagon () 1 mg IM .X1 PRN PRN Reason: Hypoglycemia Heparin Sodium (Porcine) (Heparin Na) 0 unit IV UD PRN; Protocol Last Admin: 10/06/18 10:26 Dose: 3,000 unit Hydralazine HCl (Apresoline Iv) 10 mg IV Q6H PRN PRN PRN Reason: BLOOD PRESSURE ELEVATION Last Admin: 10/06/18 10:13 Dose: 10 mg Hydralazine HCl (Apresoline) 50 mg PO TID [facility] Last Admin: 10/06/18 05:51 Dose: 50 mg Sodium Chloride () 250 mls @ 15 mls/hr IV .[id number] PRN PRN Reason: SALINE FLUSH Sodium Chloride () 500 mls @ 15 mls/hr IV .[id number] PRN PRN Reason: SALINE FLUSH Heparin Sodium/Dextrose () 25,000 units in 250 mls @ 15 mls/hr IV .[id number] [facility]; Protocol Last Admin: 10/06/18 04:44 Dose: 15 mls/hr Amiodarone HCl 360 mg/ (Dextrose) 200 mls @ 16.67 mls/hr CONT INF .Q12H1M [facility] Stop: 10/06/18 15:59 Last Admin: 10/05/18 22:37 Dose: 16.67 mls/hr Piperacillin Sod/Tazobactam (Sod 3.375 gm/ Sodium Chloride) 50 mls @ 12.5 mls/hr IV Q12 [facility] Insulin Glargine (Lantus (Bkc)) 10 units SC DAILY [facility] Last Admin: 10/06/18 09:34 Dose: 10 u Insulin Human Lispro (Humalog Kwikpen (Bk)) 0 unit SC ACHS [facility]; Protocol Last Admin: 10/06/18 09:34 Dose: 4 u Labetalol HCl (Trandate) 10 mg IV Q4H PRN PRN PRN Reason: SBP>180 mmhg/HR>120 Last Admin: 10/06/18 05:01 Dose: 10 mg Metoprolol Tartrate (Lopressor (Beta Keanu)) 100 mg PO BID [facility] Last Admin: 10/06/18 08:37 Dose: 100 mg Sertraline HCl (Zoloft) 100 mg PO DAILY [facility] Last Admin: 10/06/18 10:29 Dose: 100 mg Sodium Chloride () 5 - 15 ml IV UD PRN PRN Reason: SALINE FLUSH Last Admin: 10/06/18 10:27 Dose: 10 ml Tolterodine Tartrate (Detrol La) 4 mg PO DAILY [facility] Last Admin: 10/06/18 10:29 Dose: 4 mg Medical Necessity - Tobacco Use Smoking Status: Never smoker Tobacco Use: Non-smoker Assessment/Plan All Active Problems (Last Reviewed 07/11/18 @ 14:55 by Dede Kasper) Atrial fibrillation (Acute) DKA (diabetic ketoacidoses) (Acute) Renal insufficiency (Acute) Hypertriglyceridemia (Acute) Abnormal mammogram of right breast (Acute) 68-year-old female admitted with a complaint of generalized malaise and weakness found to be in A. fib with RVR, DKA and having severe CRISTIAN. 1. Afib with RVR had to go back on amiodarone drip after she went back into Afib with RVR yesterday; this is exacerbated by respiratory failure from pneumonia cardiology on board 2D echo showed: EF of 75%, with moderately enlarged left atrium and normal right atrium; mild mitral valve stenosis, estimated RVSP of 48mmHg; mild aortic stenosis. cardiology on board [facility] scdore now 4, since stroke has been ruled out per neurology per cardiology, to have stress test and further workup once acute illness is over. currently on heparin drip. 2. Acute hypoxic respiratory failure due to pneumonia ahs been on BIPAP overnight, but now requiring increased amounts of oxygen has been requiring 6-10L of oxygen, nad was on 6L at time of review. Also tachyneic, breathing in high 20s and 30s [address] showed bilateral airspace disease, worse in right hemithorax, with a small right pleural effusion. will broaden IV antibiotics from ceftriaxone to IV zosyn. pulmonology on board BIPAP prn and titrate oxygen to maintain sats>90% 3. DKA resolved. A1C was 9.8 on insulin 10IU qhs; hold metformin, januvia and glimepiride for now accuchecks ACHS; ISS 4. CRISTIAN Cr was 5.31 on admisison, is now down to 3.18 FeNA was 1%, indicating pre-renal cause renal USG was unremarkable CPK was WNL being hydrated with IVF nephrology consulted o/a of persistent hyperkalemia and low bicarb 5. Sepsis due to UTI and pneumonia antibiotics broadened to IV zosyn. urine cultured E. coli, sensitive to ceftriaxone blood cultures showed no growth in 48 hours 6. Hyperkalemia and nonanion gap metabolic acidosis K is 5.4 today. Bicarb is 18, anion gap is 11 nephrology consulted. 7. Acute ischemic CVA NIHSS- [address] brain showed lacunar infarct in insular cortex of right temporal lobe and decreased attenuation in the posterior right temporal parietal lobe; subacute ischemia should be ruled out MRI showed suspicition for 2.9mm actue lacunar infarct in right centrum semiovale discussed with neurology: per Dr Thorpe, this is due to an over read of the imaging, he doesnt think patient had a stroke, per his review of imaging. MRA of neck was normal, and MRA of head was also normal except for dominant right vertebral artery on high intensity statin and aspirin PT/OT on board 8. Hyponatremia: resolved 9. Hypertension: control has improved. BP now in 130s systolic. on PO metoprolol. Losartan still held o/a of controlled for age. IV hydralazine prn. 10. Urinary retention: On oxybutynin. DVT prophylaxis:on heparin drip Code Visit Inpatient E&M: 79684 Subs Hosp L3
--- NOTE | 2018-10-06 11:05 | PN_ITS ---
Patient Problems: Active and Suspected Problems (Last Reviewed 07/11/18 @ 14:55 by Dede Kasper) Atrial fibrillation (Acute) CVA (cerebral vascular accident) (Suspected) DKA (diabetic ketoacidoses) (Acute) Renal insufficiency (Acute) Hypertriglyceridemia (Acute) Subjective: Patient seen and examined. She has no complaints and feels well. However, patient noted to be requiring increased amounts of oxygen. She was on BIPAP overnight and required 6-10L of oxygen after being taken off BIPAP. She was noted to be tachypneic and has been breathing in the high 20s and 30s. However she denies feeling short of breath and denies any cough or chest pain, palpitations or dizziness, diarrhea vomiting. Review of systems otherwise nega tive. Labs and vitals reviewed. Vitals/I&O's: Vital Signs Temp Pulse Resp BP Pulse Ox 97.8 F 122 H 28 H 139/83 H 99 10/06/18 07:00 10/06/18 10:13 10/06/18 07:00 10/06/18 07:00 10/06/18 07:10 Oxygen Flow Rate (L/min) 5 Oxygen Delivery Method Nasal Cannula Weight: 245 lb 13.047 oz Body Mass Index (BMI) 40.6 Finger Stick Blood Glucose 158 Intake and Output for Last 24 Hours 10/04/18 10/05/18 10/06/18 23:59 23:59 23:59 Intake Total 6516.8 / 6516.8 2324 / 2324 459 / 459 Output Total 850 / 850 1350 / 1350 350 / 350 Balance 5666.8 / 5666.8 974 / 974 109 / 109 General: Alert, Cooperative HEENT: Atraumatic, PERRLA, Normocephalic Oral: No Gingival or Mucosal Lesions/ Ulcerations Neck: Supple, No Nodes, Trachea Midline Lungs: No rhonchi, No wheeze, Diminished, Tachypneic, on 6L of oxygen by nasal canula Cardiovascular: Normal S1, Normal S2, No murmurs, Tachycardic Abdomen: Bowel Sounds Present, Soft, Non Tender, Obese Extremities: No clubbing, No cyanosis, No edema Skin: - - No significant change from previous Musculoskeletal: No Tenderness to Palpation of Joints or Extremities Lymphatic: No Cervical, Supraclavicular, or Inguinal Adenopathy Neurological: Neuro grossly intact Psych/Mental Status: Normal Affect, Appropriate Microbiology Past 72 Hours 10/03/18 18:31 Blood Culture (Wb) - Right Hand Blood Culture - Preliminary No growth in 48 hours. 10/03/18 18:20 Blood Culture (Wb) - Right Wrist Blood Culture - Preliminary No growth in 48 hours. 10/03/18 21:15 Urine Catheter - Catheter Urine Culture - Final Escherichia coli Laboratory Results 10/05/18 06:20: B-Natriuretic Peptide 270.6 H 10/05/18 06:38: POC Glucose 278 H 10/05/18 11:42: POC Glucose 304 H 10/05/18 16:15: Sodium 134 L, Potassium 5.6 H, Chloride 108 H, Carbon Dioxide 17.0 L, Anion Gap 9, BUN 71 H, Creatinine 3.70 H, Estim Creat Clear Calc 12.37, Est GFR (MDRD) Af Amer 16 L, Est GFR (MDRD) Non-Af 13 L, BUN/Creatinine Ratio 19.2, Glucose 348 H, Calcium 8.8 10/05/18 16:46: POC Glucose 309 H 10/05/18 19:15: APTT 45.5 H 10/05/18 21:41: POC Glucose 332 H 10/06/18 02:12: WBC 9.9, RBC 3.96 L, Hgb 10.1 L, Hct 29.7 L, MCV 75.0 L, MCH 25.5 L, MCHC 34.0, RDW 16.7 H, RDW Differential 44.6 H, Plt Count 178, MPV 10.8, Immature Gran % (Auto) 1.600 H, Neut % (Auto) 80.0 H, Lymph % (Auto) 7.8 L, [place] % (Auto) 9.6, Eos % (Auto) 0.8, Baso % (Auto) 0.2, Absolute Neuts (auto) 8.0 H, Absolute Lymphs (auto) 0.77 L, Total Counted Not Reportable 10/06/18 02:12: Sodium 140, Potassium 5.4 H, Chloride 111 H, Carbon Dioxide 18.0 L, Anion Gap 11, BUN 70 H, Creatinine 3.18 H, Estim Creat Clear Calc 14.40, Est GFR (MDRD) Af Amer 19 L, Est GFR (MDRD) Non-Af 16 L, BUN/Creatinine Ratio 22.0 H , Glucose 260 H, Calcium 8.5 10/06/18 02:12: APTT 49.6 H 10/06/18 06:34: POC Glucose 273 H 10/06/18 08:33: Specimen Type ART, Sample Site L Radial, pH 7.42, Bicarbonate Actual 17.1 L, POC Total CO2 18, Base Excess -7 L, O2 Saturation 99, ABG pCO2 26.5 L, ABG pO2 113 H, O2 Delivery Device Nasal Can, Liter Flow 6.0, Blood Gas Notified Whom [facility], Blood Gas Notified Time 840 10/06/18 08:36: APTT 39.6 H Current Medications Acetaminophen (Tylenol) 500 mg PO Q6H PRN PRN PRN Reason: PAIN Aspirin (Aspirin, Baby) 81 mg PO DAILY@0800 [facility] Last Admin: 10/06/18 10:29 Dose: 81 mg Atorvastatin Calcium (Lipitor) 40 mg PO QHS [facility] Last Admin: 10/05/18 21:45 Dose: 40 mg Cyclobenzaprine HCl (Cyclobenzaprine Hcl) 5 mg PO TID PRN PRN PRN Reason: SPASMS Dextrose (D50w Syringe) 0 gm IV X1 PRN; Protocol PRN Reason: Hypoglycemia Glucagon () 1 mg IM .X1 PRN PRN Reason: Hypoglycemia Heparin Sodium (Porcine) (Heparin Na) 0 unit IV UD PRN; Protocol Last Admin: 10/06/18 10:26 Dose: 3,000 unit Hydralazine HCl (Apresoline Iv) 10 mg IV Q6H PRN PRN PRN Reason: BLOOD PRESSURE ELEVATION Last Admin: 10/06/18 10:13 Dose: 10 mg Hydralazine HCl (Apresoline) 50 mg PO TID [facility] Last Admin: 10/06/18 05:51 Dose: 50 mg Sodium Chloride () 250 mls @ 15 mls/hr IV .[id number] PRN PRN Reason: SALINE FLUSH Sodium Chloride () 500 mls @ 15 mls/hr IV .[id number] PRN PRN Reason: SALINE FLUSH Heparin Sodium/Dextrose () 25,000 units in 250 mls @ 15 mls/hr IV .[id number] [facility]; Protocol Last Admin: 10/06/18 04:44 Dose: 15 mls/hr Amiodarone HCl 360 mg/ (Dextrose) 200 mls @ 16.67 mls/hr CONT INF .Q12H1M [facility] Stop: 10/06/18 15:59 Last Admin: 10/05/18 22:37 Dose: 16.67 mls/hr Piperacillin Sod/Tazobactam (Sod 3.375 gm/ Sodium Chloride) 50 mls @ 12.5 mls/hr IV Q12 [facility] Insulin Glargine (Lantus (Bkc)) 10 units SC DAILY [facility] Last Admin: 10/06/18 09:34 Dose: 10 u Insulin Human Lispro (Humalog Kwikpen ([facility])) 0 unit SC ACHS [facility]; Protocol Last Admin: 10/06/18 09:34 Dose: 4 u Labetalol HCl (Trandate) 10 mg IV Q4H PRN PRN PRN Reason: SBP>180 mmhg/HR>120 Last Admin: 10/06/18 05:01 Dose: 10 mg Metoprolol Tartrate (Lopressor (Beta Keanu)) 100 mg PO BID [facility] Last Admin: 10/06/18 08:37 Dose: 100 mg Sertraline HCl (Zoloft) 100 mg PO DAILY [facility] Last Admin: 10/06/18 10:29 Dose: 100 mg Sodium Chloride () 5 - 15 ml IV UD PRN PRN Reason: SALINE FLUSH Last Admin: 10/06/18 10:27 Dose: 10 ml Tolterodine Tartrate (Detrol La) 4 mg PO DAILY [facility] Last Admin: 10/06/18 10:29 Dose: 4 mg Medical Necessity - Tobacco Use Smoking Status: Never smoker Tobacco Use: Non-smoker Assessment/Plan All Active Problems (Last Reviewed 07/11/18 @ 14:55 by Dede Kasper) Atrial fibrillation (Acute) DKA (diabetic ketoacidoses) (Acute) Renal insufficiency (Acute) Hypertriglyceridemia (Acute) Abnormal mammogram of right breast (Acute) 68-year-old female admitted with a complaint of generalized malaise and weakness found to be in A. fib with RVR, DKA and having severe CRISTIAN. 1. Afib with RVR * had to go back on amiodarone drip after she went back into Afib with RVR yesterday; this is exacerbated by respiratory failure from pneumonia * cardiology on board * 2D echo showed: EF of 75%, with moderately enlarged left atrium and normal right atrium; mild mitral valve stenosis, estimated RVSP of 48mmHg; mild aortic stenosis. * cardiology on board * [facility] scdore now 4, since stroke has been ruled out per neurology * per cardiology, to have stress test and further workup once acute illness is over. * currently on heparin drip. * 2. Acute hypoxic respiratory failure due to pneumonia * ahs been on BIPAP overnight, but now requiring increased amounts of oxygen * has been requiring 6-10L of oxygen, nad was on 6L at time of review. Also tachyneic, breathing in high 20s and 30s * Chest CT showed bilateral airspace disease, worse in right hemithorax, with a small right pleural effusion. * will broaden IV antibiotics from ceftriaxone to IV zosyn. * pulmonology on board * BIPAP prn and titrate oxygen to maintain sats>90% * 3. DKA * resolved. * A1C was 9.8 * on insulin 10IU qhs; hold metformin, januvia and glimepiride for now * accuchecks ACHS; ISS * 4. CRISTIAN * Cr was 5.31 on admisison, is now down to 3.18 * FeNA was 1%, indicating pre-renal cause * renal USG was unremarkable * CPK was WNL * being hydrated with IVF * nephrology consulted o/a of persistent hyperkalemia and low bicarb * * 5. Sepsis due to UTI and pneumonia * antibiotics broadened to IV zosyn. * urine cultured E. coli, sensitive to ceftriaxone * blood cultures showed no growth in 48 hours * 6. Hyperkalemia and nonanion gap metabolic acidosis * K is 5.4 today. Bicarb is 18, anion gap is 11 * nephrology consulted. * 7. Acute ischemic CVA * NIHSS- 1 on admission * CT brain showed lacunar infarct in insular cortex of right temporal lobe and decreased attenuation in the posterior right temporal parietal lobe; subacute ischemia should be ruled out * MRI showed suspicition for 2.9mm actue lacunar infarct in right centrum semiovale * discussed with neurology: per Dr Thorpe, this is due to an over read of the imaging, he doesnt think patient had a stroke, per his review of imaging. * MRA of neck was normal, and MRA of head was also normal except for dominant right vertebral artery * on high intensity statin and aspirin * PT/OT on board * * 8. Hyponatremia: * resolved * 9. Hypertension: * control has improved. BP now in 130s systolic. * on PO metoprolol. Losartan still held o/a of controlled for age. * IV hydralazine prn. 10. Urinary retention: On oxybutynin. DVT prophylaxis:on heparin drip Code Visit Inpatient E&M: [id number] [facility] Hosp L3
--- NOTE | 2018-10-06 11:21 | CASEMGMT ---
SW spoke with patient and inquired if she would like to complete advance directives and she does not as she is not feeling well. SW told her to just let her nurse know if she changes her mind. Plan: [facility] pending insurance and when medically ready. Radha ACEVEDO MSW
--- NOTE | 2018-10-06 11:48 | PN.NEURO_ITS ---
Patient Problems: Active and Suspected Problems (Last Reviewed 07/11/18 @ 14:55 by Dede Kasper) Atrial fibrillation (Acute) CVA (cerebral vascular accident) (Suspected) DKA (diabetic ketoacidoses) (Acute) Renal insufficiency (Acute) Hypertriglyceridemia (Acute) Subjective: No Issues overnight. Care discussed with hospitalist. - Physical Exam General: Alert HEENT: Normocephalic Neck: Supple Lungs: Normal air movement Cardiovascular: Normal S1, Normal S2 Abdomen: Bowel Sounds Present Extremities: No cyanosis Neurological: - - Conscious, alert, CN?2-12 grossly intact, power 5 x 5 in both upper extremities and lower extremities, no sensory loss, no cerebellar signs, no speech disturbances at present, gait deferred, reflexes + B/L B/S/T/K/A, NIHSS 0 at present, mRS 2 at baseline Psych/Mental Status: Normal Affect Vital Signs Temp Pulse Resp BP Pulse Ox 97.8 F 122 H 28 H 139/83 H 99 10/06/18 07:00 10/06/18 10:13 10/06/18 07:00 10/06/18 07:00 10/06/18 07:10 Oxygen Flow Rate (L/min) 5 Oxygen Delivery Method Nasal Cannula Weight: 111.5 kg Body Mass Index (BMI) 40.6 Finger Stick Blood Glucose 158 Intake and Output for Last 24 Hours 10/04/18 10/05/18 10/06/18 23:59 23:59 23:59 Intake Total 6516.8 / 6516.8 2324 / 2324 459 / 459 Output Total 850 / 850 1350 / 1350 350 / 350 Balance 5666.8 / 5666.8 974 / 974 109 / 109 Microbiology Past 72 Hours 10/03/18 18:31 Blood Culture - Preliminary Blood Culture (Wb) - Right Hand No growth in 48 hours. 10/03/18 18:20 Blood Culture - Preliminary Blood Culture (Wb) - Right Wrist No growth in 48 hours. 10/03/18 21:15 Urine Culture - Final Urine Catheter - Catheter Escherichia coli Laboratory Tests Past 24 Hrs 10/05/18 10/05/18 10/05/18 06:20 16:15 19:15 WBC RBC Hgb Hct MCV MCH MCHC RDW RDW Differential Plt Count MPV Immature Gran % (Auto) Neut % (Auto) Lymph % (Auto) Henderson % (Auto) Eos % (Auto) Baso % (Auto) Absolute Neuts (auto) Absolute Lymphs (auto) Total Counted APTT 45.5 H Specimen Type Sample Site pH Bicarbonate Actual POC Total CO2 Base Excess O2 Saturation ABG pCO2 ABG pO2 O2 Delivery Device Liter Flow Blood Gas Notified Whom Blood Gas Notified Time Sodium 134 L Potassium 5.6 H Chloride 108 H Carbon Dioxide 17.0 L Anion Gap 9 BUN 71 H Creatinine 3.70 H Estim Creat Clear Calc 12.37 Est GFR (MDRD) Af Amer 16 L Est GFR (MDRD) Non-Af 13 L BUN/Creatinine Ratio 19.2 Glucose 348 H Calcium 8.8 B-Natriuretic Peptide 270.6 H 10/06/18 10/06/18 10/06/18 02:12 02:12 02:12 WBC 9.9 RBC 3.96 L Hgb 10.1 L Hct 29.7 L MCV 75.0 L MCH 25.5 L MCHC 34.0 RDW 16.7 H RDW Differential 44.6 H Plt Count 178 MPV 10.8 Immature Gran % (Auto) 1.600 H Neut % (Auto) 80.0 H Lymph % (Auto) 7.8 L Henderson % (Auto) 9.6 Eos % (Auto) 0.8 Baso % (Auto) 0.2 Absolute Neuts (auto) 8.0 H Absolute Lymphs (auto) 0.77 L Total Counted Not Reportable APTT 49.6 H Specimen Type Sample Site pH Bicarbonate Actual POC Total CO2 Base Excess O2 Saturation ABG pCO2 ABG pO2 O2 Delivery Device Liter Flow Blood Gas Notified Whom Blood Gas Notified Time Sodium 140 Potassium 5.4 H Chloride 111 H Carbon Dioxide 18.0 L Anion Gap 11 BUN 70 H Creatinine 3.18 H Estim Creat Clear Calc 14.40 Est GFR (MDRD) Af Amer 19 L Est GFR (MDRD) Non-Af 16 L BUN/Creatinine Ratio 22.0 H Glucose 260 H Calcium 8.5 B-Natriuretic Peptide 10/06/18 10/06/18 08:33 08:36 WBC RBC Hgb Hct MCV MCH MCHC RDW RDW Differential Plt Count MPV Immature Gran % (Auto) Neut % (Auto) Lymph % (Auto) Henderson % (Auto) Eos % (Auto) Baso % (Auto) Absolute Neuts (auto) Absolute Lymphs (auto) Total Counted APTT 39.6 H Specimen Type ART Sample Site L Radial pH 7.42 Bicarbonate Actual 17.1 L POC Total CO2 18 Base Excess -7 L O2 Saturation 99 ABG pCO2 26.5 L ABG pO2 113 H O2 Delivery Device Nasal Can Liter Flow 6.0 Blood Gas Notified Whom [facility] Blood Gas Notified Time 840 Sodium Potassium Chloride Carbon Dioxide Anion Gap BUN Creatinine Estim Creat Clear Calc Est GFR (MDRD) Af Amer Est GFR (MDRD) Non-Af BUN/Creatinine Ratio Glucose Calcium B-Natriuretic Peptide POC Glucose 10/06/18 10/05/18 10/05/18 06:34 21:41 16:46 POC Glucose 273 H 332 H 309 H 10/05/18 10/05/18 11:42 06:38 POC Glucose 304 H 278 H Medical Necessity - Tobacco Use Smoking Status: Never smoker Tobacco Use: Non-smoker Assessment/Plan All Active Problems (Last Reviewed 07/11/18 @ 14:55 by Dede Kasper) Atrial fibrillation (Acute) DKA (diabetic ketoacidoses) (Acute) Renal insufficiency (Acute) Hypertriglyceridemia (Acute) Abnormal mammogram of right breast (Acute) The patient is a 68 year old F with PMH HTN, HLD, DM, history of cervical and lumbar surgery, history of cervical and lumbar spinal stenosis, LEIGH ANN on CPAP, depression admitted with generalized malaise. Neurology consulted for possible stroke. At present patient denies any headache, dizziness, speech disturbances, visual disturbances, focal motor weakness or sensory loss. She does complain of chronic neck pain and low back pain. Denies any radicular symptoms. Per patient she lives alone, denies any frequent falls but has been having few falls lately as her legs would give away, does drive, uses cane or walker to ambulate, and does need assistance for her ADLs. Per patient she was taking aspirin at baseline but has not been taking it for the past few days. History is also obtained from medical records and documentation. Per ED documentation on admission NIHSS was 1, CT head done on admission reported to show findings suggestive of lacunar infarct in the insular cortex of the right temporal lobe and decreased attenuation in the posterior right temporal lobe, subacute ischemia should be ruled out. On admission she was found to be in A. fib with RVR, labs showed sodium 129, creatinine 5.31, glucose was 421, WBC 14, UA showed LE positive, nitrite positive and was turbid Impression Possible very small Right [employer] (Right MCA) stroke Possible metabolic encephalopathy-DKA, CRISTIAN, sepsis secondary to UTI New onset A. fib Cervical stenosis and lumbar foraminal stenosis Plan ?MRI brain without contrast-reported as suspicion of a 2.9 mm acute lacunar infarction within the right centrum semiovale -MRA head/neck- reported no hemodynamically significant stenosis or occlusion ?MRI C-spine without contrast- No abnormal cervical cord signal. Slightly increased T3-4 intervertebral disc disease with mild ventral cord flattening. Stable C3-C7 anterior surgical fixation with endplate fusion. Stable multilevel posterior osseous ridging with mild central canal narrowing. Stable multilevel severe neural foraminal narrowing. Stable osseous degenerative changes -MRI L-spine without contrast-No acute fracture or dislocation. Extensive multilevel intervertebral disc disease without significant central canal narrowing. Multilevel neural foraminal narrowing with impingement of the right L2, right L3 and bilateral L4 nerve roots. Slightly exaggerated lumbar lordosis with minimal levoscoliosis. Multilevel osseous degenerative changes with multilevel laminectomies -Spine surgery consult ?On Lipitor. [id number] VASc score atleast 5. Will need to be on AC with Eliquis once renal function improves. On Heparin drip at present. Avoid bolus. ?TTE-EF 75%, LA moderately enlarged -LDL-test not performed due to high triglycerides of 508, PgH3r-5.8 ?Stroke risk factors discussed and stroke education provided ?Goal BP less than 130/80 mmHg and HbA1c less than 7% ?PT/OT/ST ?GI/DVT prophylaxis ?Fall precautions ?Further medical management per hospitalist team ?Follow-up with neurology as outpatient in 4 weeks ?Please call with questions if any ?Thank you for allowing us to part spent in patient's care management
[2018-10-06 11:55] LABS: Bedside Glucose 277 mg/dL (70-110)
[2018-10-06 12:21] LABS: Bedside Glucose 295 mg/dL (70-110)
--- NOTE | 2018-10-06 12:44 | PCM.CONS.R ---
Problem List (1) Renal insufficiency Status: Acute Consultation - Renal 10/06/18 PCP/ Referring MD: Requesting physician: [] Primary care physician: Lesley Yoder Reason for Consultation:: loyda - History of Present Illness History of Present Illness: The patient is a 68 year old F who presented to the hospital about 4 days ago with complaints of unilateral weakness, generalized weakness, not feeling well. She went to her primary care physician and was told to come into the emergency room. Since admission to the hospital several events including new onset lacunar stroke, new onset atrial fibrillation, diabetic ketoacidosis, acute renal failure. Nephrology is consulted for acute renal failure and hyperkalemia. Has normal creatinine at baseline as of 10 days before admission. Presented with a creatinine of more than 5 and this has improved since then. Remains hyperkalemic with potassium around 5.4 today. No urinary complaints. Somewhat hypoxic today. CT chest was consistent with right lower lobe pneumonia. Review of systems is negative except above. - Allergies Allergies: Allergies fosinopril [From Monopril] Allergy (Unknown, Verified 10/03/18 14:25) unknown pioglitazone Adverse Reaction (Verified 10/03/18 14:25) Other - Current Medications Current Medications: Current Medications Acetaminophen (Tylenol) 500 mg PO Q6H PRN PRN PRN Reason: PAIN Aspirin (Aspirin, Baby) 81 mg PO DAILY@0800 [facility] Last Admin: 10/06/18 10:29 Dose: 81 mg Atorvastatin Calcium (Lipitor) 40 mg PO QHS [facility] Last Admin: 10/05/18 21:45 Dose: 40 mg Cyclobenzaprine HCl (Cyclobenzaprine Hcl) 5 mg PO TID PRN PRN PRN Reason: SPASMS Dextrose (D50w Syringe) 0 gm IV X1 PRN; Protocol PRN Reason: Hypoglycemia Glucagon () 1 mg IM .X1 PRN PRN Reason: Hypoglycemia Heparin Sodium (Porcine) (Heparin Na) 0 unit IV UD PRN; Protocol Last Admin: 10/06/18 10:26 Dose: 3,000 unit Hydralazine HCl (Apresoline Iv) 10 mg IV Q6H PRN PRN PRN Reason: BLOOD PRESSURE ELEVATION Last Admin: 10/06/18 10:13 Dose: 10 mg Hydralazine HCl (Apresoline) 50 mg PO TID [facility] Last Admin: 10/06/18 05:51 Dose: 50 mg Sodium Chloride () 250 mls @ 15 mls/hr IV .[id number] PRN PRN Reason: SALINE FLUSH Sodium Chloride () 500 mls @ 15 mls/hr IV .[id number] PRN PRN Reason: SALINE FLUSH Heparin Sodium/Dextrose () 25,000 units in 250 mls @ 15 mls/hr IV .[id number] [facility]; Protocol Last Admin: 10/06/18 04:44 Dose: 15 mls/hr Amiodarone HCl 360 mg/ (Dextrose) 200 mls @ 16.67 mls/hr CONT INF .Q12H1M [facility] Stop: 10/06/18 15:59 Last Admin: 10/06/18 11:50 Dose: 16.67 mls/hr Piperacillin Sod/Tazobactam (Sod 3.375 gm/ Sodium Chloride) 50 mls @ 12.5 mls/hr IV Q12 [facility] Last Admin: 10/06/18 11:55 Dose: 12.5 mls/hr Insulin Glargine (Lantus (Bkc)) 10 units SC DAILY [facility] Last Admin: 10/06/18 09:34 Dose: 10 u Insulin Human Lispro (Humalog Kwikpen (Bkc)) 0 unit SC ACHS [facility]; Protocol Last Admin: 10/06/18 11:54 Dose: 4 u Labetalol HCl (Trandate) 10 mg IV Q4H PRN PRN PRN Reason: SBP>180 mmhg/HR>120 Last Admin: 10/06/18 05:01 Dose: 10 mg Metoprolol Tartrate (Lopressor (Beta Keanu)) 100 mg PO BID [facility] Last Admin: 10/06/18 08:37 Dose: 100 mg Sertraline HCl (Zoloft) 100 mg PO DAILY [facility] Last Admin: 10/06/18 10:29 Dose: 100 mg Sodium Bicarbonate (Sodium Bicarbonate) 1,300 mg PO TID [facility] Sodium Chloride () 5 - 15 ml IV UD PRN PRN Reason: SALINE FLUSH Last Admin: 10/06/18 10:27 Dose: 10 ml Tolterodine Tartrate (Detrol La) 4 mg PO DAILY [facility] Last Admin: 10/06/18 10:29 Dose: 4 mg - Past Medical History Past Medical History (Chronic Problems): Chronic Problems (Last Reviewed 07/11/18 @ 14:55 by Dede Kasper) HTN (hypertension) (Chronic) Diabetes mellitus (Chronic) - Social History Smoking Status: Never smoker Alcohol: None Drugs: None - Family History Maternal Family History: Family History (Last Updated 07/11/18 @ 14:56 by Dede Kasper) Father Diabetes Hypertension High cholesterol Review of Systems Constitutional: Denies: Chills, Fever, Weight Change HEENT: Denies: Head Aches, Sinus Congestion, Sinus Drainage Cardiovascular: Denies: Chest Pain, Palpitations Respiratory: Denies: Cough, Shortness of breath at rest, Sputum production Gastrointestinal: Denies: Abdominal Pain, Nausea, Vomiting Genitourinary: Denies: Dysuria Musculoskeletal: Denies: Joint Pain, Joint Tenderness Skin: Denies: Rash, Wounds Neurological: Denies: Numbness, Tingling, Focal weakness Psychiatric: Denies: Anxiety, Depression, Homicidal Ideations, Suicidal Ideations Hematologic/ Lymphatic: Denies: Easy Bruising, Easy Bleeding Patient Problems: Active and Suspected Problems (Last Reviewed 07/11/18 @ 14:55 by Dede Kasper) Atrial fibrillation (Acute) CVA (cerebral vascular accident) (Suspected) DKA (diabetic ketoacidoses) (Acute) Renal insufficiency (Acute) Hypertriglyceridemia (Acute) - Physical Exam General: Alert, Oriented x3, Cooperative HEENT: Atraumatic, PERRLA, EOMI, Normocephalic Neck: Supple, No JVD, Negative Carotid Bruits Lungs: Clear to auscultation, Normal air movement Cardiovascular: Regular rate, No murmurs Abdomen: Bowel Sounds Present, Soft, Non Tender Extremities: No edema, Capillary Refill Less than 3 Seconds Skin: No rashes, No breakdown Musculoskeletal: No Tenderness to Palpation of Joints or Extremities Neurological: Cranial nerves II-XII grossly intact Psych/Mental Status: Normal Affect, Appropriate Vital Signs Temp Pulse Resp BP Pulse Ox 97.8 F 122 H 28 H 139/83 H 99 10/06/18 07:00 10/06/18 10:13 10/06/18 07:00 10/06/18 07:00 10/06/18 07:10 Oxygen Flow Rate (L/min) 5 Oxygen Delivery Method Nasal Cannula Weight: 111.5 kg Body Mass Index (BMI) 40.6 Finger Stick Blood Glucose 158 Intake and Output for Last 24 Hours 10/04/18 10/05/18 10/06/18 23:59 23:59 23:59 Intake Total 6516.8 / 6516.8 2324 / 2324 699 / 699 Output Total 850 / 850 1350 / 1350 700 / 700 Balance 5666.8 / 5666.8 974 / 974 -1 / -1 Microbiology Past 72 Hours 10/03/18 18:31 Blood Culture - Preliminary Blood Culture (Wb) - Right Hand No growth in 48 hours. 10/03/18 18:20 Blood Culture - Preliminary Blood Culture (Wb) - Right Wrist No growth in 48 hours. 10/03/18 21:15 Urine Culture - Final Urine Catheter - Catheter Escherichia coli Laboratory Tests Past 24 Hrs 10/05/18 10/05/18 10/05/18 06:20 16:15 19:15 WBC RBC Hgb Hct MCV MCH MCHC RDW RDW Differential Plt Count MPV Immature Gran % (Auto) Neut % (Auto) Lymph % (Auto) Leon % (Auto) Eos % (Auto) Baso % (Auto) Absolute Neuts (auto) Absolute Lymphs (auto) Total Counted APTT 45.5 H Specimen Type Sample Site pH Bicarbonate Actual POC Total CO2 Base Excess O2 Saturation ABG pCO2 ABG pO2 O2 Delivery Device Liter Flow Blood Gas Notified Whom Blood Gas Notified Time Sodium 134 L Potassium 5.6 H Chloride 108 H Carbon Dioxide 17.0 L Anion Gap 9 BUN 71 H Creatinine 3.70 H Estim Creat Clear Calc 12.37 Est GFR (MDRD) Af Amer 16 L Est GFR (MDRD) Non-Af 13 L BUN/Creatinine Ratio 19.2 Glucose 348 H Calcium 8.8 B-Natriuretic Peptide 270.6 H 10/06/18 10/06/18 10/06/18 02:12 02:12 02:12 WBC 9.9 RBC 3.96 L Hgb 10.1 L Hct 29.7 L MCV 75.0 L MCH 25.5 L MCHC 34.0 RDW 16.7 H RDW Differential 44.6 H Plt Count 178 MPV 10.8 Immature Gran % (Auto) 1.600 H Neut % (Auto) 80.0 H Lymph % (Auto) 7.8 L Leon % (Auto) 9.6 Eos % (Auto) 0.8 Baso % (Auto) 0.2 Absolute Neuts (auto) 8.0 H Absolute Lymphs (auto) 0.77 L Total Counted Not Reportable APTT 49.6 H Specimen Type Sample Site pH Bicarbonate Actual POC Total CO2 Base Excess O2 Saturation ABG pCO2 ABG pO2 O2 Delivery Device Liter Flow Blood Gas Notified Whom Blood Gas Notified Time Sodium 140 Potassium 5.4 H Chloride 111 H Carbon Dioxide 18.0 L Anion Gap 11 BUN 70 H Creatinine 3.18 H Estim Creat Clear Calc 14.40 Est GFR (MDRD) Af Amer 19 L Est GFR (MDRD) Non-Af 16 L BUN/Creatinine Ratio 22.0 H Glucose 260 H Calcium 8.5 B-Natriuretic Peptide 10/06/18 10/06/18 08:33 08:36 WBC RBC Hgb Hct MCV MCH MCHC RDW RDW Differential Plt Count MPV Immature Gran % (Auto) Neut % (Auto) Lymph % (Auto) Leon % (Auto) Eos % (Auto) Baso % (Auto) Absolute Neuts (auto) Absolute Lymphs (auto) Total Counted APTT 39.6 H Specimen Type ART Sample Site L Radial pH 7.42 Bicarbonate Actual 17.1 L POC Total CO2 18 Base Excess -7 L O2 Saturation 99 ABG pCO2 26.5 L ABG pO2 113 H O2 Delivery Device Nasal Can Liter Flow 6.0 Blood Gas Notified Whom [facility] Blood Gas Notified Time 840 Sodium Potassium Chloride Carbon Dioxide Anion Gap BUN Creatinine Estim Creat Clear Calc Est GFR (MDRD) Af Amer Est GFR (MDRD) Non-Af BUN/Creatinine Ratio Glucose Calcium B-Natriuretic Peptide POC Glucose 10/06/18 10/06/18 10/06/18 11:54 09:33 06:34 POC Glucose 295 H 277 H 273 H 10/05/18 10/05/18 10/05/18 21:41 16:46 06:38 POC Glucose 332 H 309 H 278 H Assessment/Plan All Active Problems (Last Reviewed 07/11/18 @ 14:55 by Dede Kasper) Atrial fibrillation (Acute) DKA (diabetic ketoacidoses) (Acute) Renal insufficiency (Acute) Hypertriglyceridemia (Acute) Abnormal mammogram of right breast (Acute) Acute renal failure. Normal baseline creatinine. History of retention, improved with Butt placement. Creatinine is trending down. Urine analysis looked fairly dirty but she is clinically better. Since creatinine is continuing to improve, Hold off on further work-up. No acute indications for renal replacement therapy. Hyperkalemia. Likely mediated by acute renal failure, acidosis, hyperglycemia. Potassium levels today are better at 5.4. She does not want Kayexalate. Will add oral bicarbonate today. She is already hypoxic with significant lower lobe pneumonia hence hold off on IV fluids for now. Acidosis. Mostly non-gap. Likely due to renal failure. She denies any GI symptoms. Add oral bicarbonate for now. Discussed with hospitalist
--- NOTE | 2018-10-06 12:48 | CON.PCM_ITS ---
Problem List (1) Renal insufficiency Status: Acute Consultation - Renal 10/06/18 PCP/ Referring MD: Requesting physician: [] Primary care physician: Lesley Yoder Reason for Consultation:: loyda - History of Present Illness History of Present Illness: The patient is a 68 year old F who presented to the hospital about 4 days ago with complaints of unilateral weakness, generalized weakness, not feeling well. She went to her primary care physician and was told to come into the emergency room. Since admission to the hospital several events including new onset [place] stroke, new onset atrial fibrillation, diabetic ketoacidosis, acute renal failure. Nephrology is consulted for acute renal failure and hyperkalemia. Has normal creatinine at baseline as of 10 days before admission. Presented with a creatinine of more than 5 and this has improved since then. Remains hyperkalemic with potassium around 5.4 today. No urinary complaints. Somewhat hypoxic today. CT chest was consistent with right lower lobe pneumonia. Review of systems is negative except above. - Allergies Allergies: Allergies fosinopril [From Monopril] Allergy (Unknown, Verified 10/03/18 14:25) unknown pioglitazone Adverse Reaction (Verified 10/03/18 14:25) Other - Current Medications Current Medications: Current Medications Acetaminophen (Tylenol) 500 mg PO Q6H PRN PRN PRN Reason: PAIN Aspirin (Aspirin, Baby) 81 mg PO DAILY@0800 [facility] Last Admin: 10/06/18 10:29 Dose: 81 mg Atorvastatin Calcium (Lipitor) 40 mg PO QHS [facility] Last Admin: 10/05/18 21:45 Dose: 40 mg Cyclobenzaprine HCl (Cyclobenzaprine Hcl) 5 mg PO TID PRN PRN PRN Reason: SPASMS Dextrose (D50w Syringe) 0 gm IV X1 PRN; Protocol PRN Reason: Hypoglycemia Glucagon () 1 mg IM .X1 PRN PRN Reason: Hypoglycemia Heparin Sodium (Porcine) (Heparin Na) 0 unit IV UD PRN; Protocol Last Admin: 10/06/18 10:26 Dose: 3,000 unit Hydralazine HCl (Apresoline Iv) 10 mg IV Q6H PRN PRN PRN Reason: BLOOD PRESSURE ELEVATION Last Admin: 10/06/18 10:13 Dose: 10 mg Hydralazine HCl (Apresoline) 50 mg PO TID [facility] Last Admin: 10/06/18 05:51 Dose: 50 mg Sodium Chloride () 250 mls @ 15 mls/hr IV .[id number] PRN PRN Reason: SALINE FLUSH Sodium Chloride () 500 mls @ 15 mls/hr IV .[id number] PRN PRN Reason: SALINE FLUSH Heparin Sodium/Dextrose () 25,000 units in 250 mls @ 15 mls/hr IV .[id number] [facility]; Protocol Last Admin: 10/06/18 04:44 Dose: 15 mls/hr Amiodarone HCl 360 mg/ (Dextrose) 200 mls @ 16.67 mls/hr CONT INF .Q12H1M [facility] Stop: 10/06/18 15:59 Last Admin: 10/06/18 11:50 Dose: 16.67 mls/hr Piperacillin Sod/Tazobactam (Sod 3.375 gm/ Sodium Chloride) 50 mls @ 12.5 mls/hr IV Q12 [facility] Last Admin: 10/06/18 11:55 Dose: 12.5 mls/hr Insulin Glargine (Lantus (Bkc)) 10 units SC DAILY [facility] Last Admin: 10/06/18 09:34 Dose: 10 u Insulin Human Lispro (Humalog Kwikpen (Bkc)) 0 unit SC ACHS [facility]; Protocol Last Admin: 10/06/18 11:54 Dose: 4 u Labetalol HCl (Trandate) 10 mg IV Q4H PRN PRN PRN Reason: SBP>180 mmhg/HR>120 Last Admin: 10/06/18 05:01 Dose: 10 mg Metoprolol Tartrate (Lopressor (Beta Keanu)) 100 mg PO BID [facility] Last Admin: 10/06/18 08:37 Dose: 100 mg Sertraline HCl (Zoloft) 100 mg PO DAILY [facility] Last Admin: 10/06/18 10:29 Dose: 100 mg Sodium Bicarbonate (Sodium Bicarbonate) 1,300 mg PO TID [facility] Sodium Chloride () 5 - 15 ml IV UD PRN PRN Reason: SALINE FLUSH Last Admin: 10/06/18 10:27 Dose: 10 ml Tolterodine Tartrate (Detrol La) 4 mg PO DAILY [facility] Last Admin: 10/06/18 10:29 Dose: 4 mg - Past Medical History Past Medical History (Chronic Problems): Chronic Problems (Last Reviewed 07/11/18 @ 14:55 by Dede Kasper) HTN (hypertension) (Chronic) Diabetes mellitus (Chronic) - Social History Smoking Status: Never smoker Alcohol: None Drugs: None - Family History Maternal Family History: Family History (Last Updated 07/11/18 @ 14:56 by Dede Kasper) Father Diabetes Hypertension High cholesterol Review of Systems Constitutional: Denies: Chills, Fever, Weight Change HEENT: Denies: Head Aches, Sinus Congestion, Sinus Drainage Cardiovascular: Denies: Chest Pain, Palpitations Respiratory: Denies: Cough, Shortness of breath at rest, Sputum production Gastrointestinal: Denies: Abdominal Pain, Nausea, Vomiting Genitourinary: Denies: Dysuria Musculoskeletal: Denies: Joint Pain, Joint Tenderness Skin: Denies: Rash, Wounds Neurological: Denies: Numbness, Tingling, Focal weakness Psychiatric: Denies: Anxiety, Depression, Homicidal Ideations, Suicidal Ideations Hematologic/ Lymphatic: Denies: Easy Bruising, Easy Bleeding Patient Problems: Active and Suspected Problems (Last Reviewed 07/11/18 @ 14:55 by Dede Kasper) Atrial fibrillation (Acute) CVA (cerebral vascular accident) (Suspected) DKA (diabetic ketoacidoses) (Acute) Renal insufficiency (Acute) Hypertriglyceridemia (Acute) - Physical Exam General: Alert, Oriented x3, Cooperative HEENT: Atraumatic, PERRLA, EOMI, Normocephalic Neck: Supple, No JVD, Negative Carotid Bruits Lungs: Clear to auscultation, Normal air movement Cardiovascular: Regular rate, No murmurs Abdomen: Bowel Sounds Present, Soft, Non Tender Extremities: No edema, Capillary Refill Less than 3 Seconds Skin: No rashes, No breakdown Musculoskeletal: No Tenderness to Palpation of Joints or Extremities Neurological: Cranial nerves II-XII grossly intact Psych/Mental Status: Normal Affect, Appropriate Vital Signs Temp Pulse Resp BP Pulse Ox 97.8 F 122 H 28 H 139/83 H 99 10/06/18 07:00 10/06/18 10:13 10/06/18 07:00 10/06/18 07:00 10/06/18 07:10 Oxygen Flow Rate (L/min) 5 Oxygen Delivery Method Nasal Cannula Weight: 111.5 kg Body Mass Index (BMI) 40.6 Finger Stick Blood Glucose 158 Intake and Output for Last 24 Hours 05/22/19 05/23/19 05/24/19 23:59 23:59 23:59 Intake Total 6516.8 / 6516.8 2324 / 2324 699 / 699 Output Total 850 / 850 1350 / 1350 700 / 700 Balance 5666.8 / 5666.8 974 / 974 -1 / -1 Microbiology Past 72 Hours 10/03/18 18:31 Blood Culture - Preliminary Blood Culture (Wb) - Right Hand No growth in 48 hours. 10/03/18 18:20 Blood Culture - Preliminary Blood Culture (Wb) - Right Wrist No growth in 48 hours. 10/03/18 21:15 Urine Culture - Final Urine Catheter - Catheter Escherichia coli Laboratory Tests Past 24 Hrs 10/05/18 10/05/18 10/05/18 06:20 16:15 19:15 WBC RBC Hgb Hct MCV MCH MCHC RDW RDW Differential Plt Count MPV Immature Gran % (Auto) Neut % (Auto) Lymph % (Auto) [place] % (Auto) Eos % (Auto) Baso % (Auto) Absolute Neuts (auto) Absolute Lymphs (auto) Total Counted APTT 45.5 H Specimen Type Sample Site pH Bicarbonate Actual POC Total CO2 Base Excess O2 Saturation ABG pCO2 ABG pO2 O2 Delivery Device Liter Flow Blood Gas Notified Whom Blood Gas Notified Time Sodium 134 L Potassium 5.6 H Chloride 108 H Carbon Dioxide 17.0 L Anion Gap 9 BUN 71 H Creatinine 3.70 H Estim Creat Clear Calc 12.37 Est GFR (MDRD) Af Amer 16 L Est GFR (MDRD) Non-Af 13 L BUN/Creatinine Ratio 19.2 Glucose 348 H Calcium 8.8 B-Natriuretic Peptide 270.6 H 10/06/18 10/06/18 10/06/18 02:12 02:12 02:12 WBC 9.9 RBC 3.96 L Hgb 10.1 L Hct 29.7 L MCV 75.0 L MCH 25.5 L MCHC 34.0 RDW 16.7 H RDW Differential 44.6 H Plt Count 178 MPV 10.8 Immature Gran % (Auto) 1.600 H Neut % (Auto) 80.0 H Lymph % (Auto) 7.8 L [place] % (Auto) 9.6 Eos % (Auto) 0.8 Baso % (Auto) 0.2 Absolute Neuts (auto) 8.0 H Absolute Lymphs (auto) 0.77 L Total Counted Not Reportable APTT 49.6 H Specimen Type Sample Site pH Bicarbonate Actual POC Total CO2 Base Excess O2 Saturation ABG pCO2 ABG pO2 O2 Delivery Device Liter Flow Blood Gas Notified Whom Blood Gas Notified Time Sodium 140 Potassium 5.4 H Chloride 111 H Carbon Dioxide 18.0 L Anion Gap 11 BUN 70 H Creatinine 3.18 H Estim Creat Clear Calc 14.40 Est GFR (MDRD) Af Amer 19 L Est GFR (MDRD) Non-Af 16 L BUN/Creatinine Ratio 22.0 H Glucose 260 H Calcium 8.5 B-Natriuretic Peptide 10/06/18 10/06/18 08:33 08:36 WBC RBC Hgb Hct MCV MCH MCHC RDW RDW Differential Plt Count MPV Immature Gran % (Auto) Neut % (Auto) Lymph % (Auto) [place] % (Auto) Eos % (Auto) Baso % (Auto) Absolute Neuts (auto) Absolute Lymphs (auto) Total Counted APTT 39.6 H Specimen Type ART Sample Site L Radial pH 7.42 Bicarbonate Actual 17.1 L POC Total CO2 18 Base Excess -7 L O2 Saturation 99 ABG pCO2 26.5 L ABG pO2 113 H O2 Delivery Device Nasal Can Liter Flow 6.0 Blood Gas Notified Whom [facility] Blood Gas Notified Time 840 Sodium Potassium Chloride Carbon Dioxide Anion Gap BUN Creatinine Estim Creat Clear Calc Est GFR (MDRD) Af Amer Est GFR (MDRD) Non-Af BUN/Creatinine Ratio Glucose Calcium B-Natriuretic Peptide POC Glucose 10/06/18 10/06/18 10/06/18 11:54 09:33 06:34 POC Glucose 295 H 277 H 273 H 10/05/18 10/05/18 10/05/18 21:41 16:46 06:38 POC Glucose 332 H 309 H 278 H Assessment/Plan All Active Problems (Last Reviewed 07/11/18 @ 14:55 by Dede Kasper) Atrial fibrillation (Acute) DKA (diabetic ketoacidoses) (Acute) Renal insufficiency (Acute) Hypertriglyceridemia (Acute) Abnormal mammogram of right breast (Acute) Acute renal failure. Normal baseline creatinine. History of retention, improved with Butt placement. Creatinine is trending down. Urine analysis looked fairly dirty but she is clinically better. Since creatinine is continuing to improve, Hold off on further work-up. No acute indications for renal replacement therapy. Hyperkalemia. Likely mediated by acute renal failure, acidosis, hyperglycemia. Potassium levels today are better at 5.4. She does not want Kayexalate. Will add oral bicarbonate today. She is already hypoxic with significant lower lobe pneumonia hence hold off on IV fluids for now. Acidosis. Mostly non-gap. Likely due to renal failure. She denies any GI symptoms. Add oral bicarbonate for now. Discussed with hospitalist
[2018-10-06] MEDS: Sodium Bicarbonate 650 MG Tablet 1300 MG PO ×2 (14:25→23:31)
--- NOTE | 2018-10-06 15:20 | EKG12_ITS ---
Test Reason : AFIB Blood Pressure : / mmHG Vent. Rate : 161 BPM Atrial Rate : 156 BPM P-R Int : 000 ms QRS Dur : 082 ms QT Int : 286 ms P-R-T Axes : 000 054 -30 degrees QTc Int : [address] & T wave abnormality, consider inferior ischemia or digitalis effect Abnormal ECG When compared with ECG of 03-OCT-2018 14:33, MANUAL COMPARISON REQUIRED, DATA IS UNCONFIRMED Confirmed by SOCORRO GRACE ([id number]), editor trade journal RADHA HOPKINS ([id number]) on 10/11/2018 1:00:51 PM Referred By: KRISHNA Confirmed By:LAURA GRACE
[2018-10-06] MEDS: Amiodarone 200 MG Tablet PO ×2 (16:36→23:29)
[2018-10-06 16:46] LABS: Bedside Glucose 267 mg/dL (70-110)
[2018-10-06 17:06] LABS: Partial Thromboplast Time 57.5 Seconds (24.1-36.2)
--- NOTE | 2018-10-06 17:38 | PN.CARD_ITS ---
Subjectve: The patient was evaluated earlier this day. At that point in time she remained in atrial fibrillation on IV amiodarone. She was undergoing continued multidisciplinary evaluation care. She did not appear to have any acute symptoms of patient's rapid heart rate. Objective: Vital Signs Temp Pulse Resp BP Pulse Ox 98 F 75 22 H 132/67 H 97 10/06/18 17:00 10/06/18 17:00 10/06/18 17:00 10/06/18 17:00 10/06/18 17:00 Oxygen Flow Rate (L/min) 3 Oxygen Delivery Method Nasal Cannula Weight: 245 lb 13.047 oz Body Mass Index (BMI) 40.6 Finger Stick Blood Glucose 158 Intake and Output for Last 24 Hours 10/04/18 10/05/18 10/06/18 23:59 23:59 23:59 Intake Total 6516.8 / 6516.8 2324 / 2324 699 / 699 Output Total 850 / 850 1350 / 1350 700 / 700 Balance 5666.8 / 5666.8 974 / 974 -1 / -1 General: Awake, Alert, Oriented x 3, Cooperative HEENT: Atraumatic, Normocephalic, PERRL, EOMI, Sclera Non Icteric Oral: Moist Mucosa Neck: Supple, Good ROM, No JVD Lungs: Rales - Right Base - Minimal Cardiovascular: Irregular Rhythm, Normal S1, Normal S2 Abdomen: Bowel Sounds Present, Soft, Non Tender Extremities: Trace RLE Edema, Trace LLE Edema Psych/Mental Status: Appropriate 10/05/18 19:15: APTT 45.5 H 10/06/18 02:12: WBC 9.9, RBC 3.96 L, Hgb 10.1 L, Hct 29.7 L, MCV 75.0 L, MCH 25.5 L, MCHC 34.0, RDW 16.7 H, RDW Differential 44.6 H, Plt Count 178, MPV 10.8, Immature Gran % (Auto) 1.600 H, Neut % (Auto) 80.0 H, Lymph % (Auto) 7.8 L, [place] % (Auto) 9.6, Eos % (Auto) 0.8, Baso % (Auto) 0.2, Absolute Neuts (auto) 8.0 H, Total Counted Not Reportable 10/06/18 02:12: Sodium 140, Potassium 5.4 H, Chloride 111 H, Carbon Dioxide 18.0 L, Anion Gap 11, BUN 70 H, Creatinine 3.18 H, Est GFR (MDRD) Af Amer 19 L, Est GFR (MDRD) Non-Af 16 L, BUN/Creatinine Ratio 22.0 H, Glucose 260 H, Calcium 8.5 10/06/18 02:12: APTT 49.6 H 10/06/18 08:33: pH 7.42, Bicarbonate Actual 17.1 L, POC Total CO2 18, Base Excess -7 L, O2 Saturation 99, ABG pCO2 26.5 L, ABG pO2 113 H 10/06/18 08:36: APTT 39.6 H 10/06/18 16:28: APTT 57.5 H Rhythm: Atrial fibrillation; sinus rhythm Medical Necessity - Tobacco Use Smoking Status: Never smoker Tobacco Use: Non-smoker Assessment/Plan 1. Atrial fibrillation with rapid ventricular response The patient had returned to atrial fibrillation. She required being placed back on IV amiodarone. She has since reported by internal medicine to return to sinus rhythm. At the present time she will continue medical therapy. This includes rate limiting therapy, antiarrhythmic therapy, and anticoagulant therapy. Her medications will be transitioned to oral as best as possible. 2. Hypertension She states she has had a long-standing history of hypertension. She notes her blood pressure has been somewhat challenging to control. She will continue medical therapy as deemed appropriate per neurology recommendations in light of her recent CVA. 3. Hypertriglyceridemia Her triglycerides are markedly elevated. This may be secondary to her diabetes mellitus. Thus at the moment attempt is being made to bring her hyperglycemia under better control. Her lipids will need to be followed. She may need lipid- lowering therapy. 4. Diabetes mellitus She will continue under the care of internal medicine. 5. DKA She has a history of DKA. She is being evaluated and cared for by internal medicine at this time. 6. Acute renal insufficiency Her Cr level is somewhat improved. This may be secondary to her hyperglycemia, etc. She will continue medical management deemed appropriate per internal medicine. 7. CVA She will continue evaluation care per internal medicine and neurology. Comment: The patient's case has been discussed reviewed with the patient and the [facility] hospitalist staff. This note was generated with [employer] software. It may contain incorrect words, spelling, and punctuation that were not noted in checking the note before signing.
[2018-10-06 19:29] LABS: M R Staph aureus DNA By PCR POSITIVE (Negative); Probe Check PASS
[2018-10-06 22:38] LABS: Partial Thromboplast Time 54.9 Seconds (24.1-36.2)
[2018-10-06] MEDS: Atorvastatin Calcium 40 MG Tablet PO (23:31)
[2018-10-07] VITALS (18 sets, daily range): BP systolic 101–145; BP diastolic 46–74; PULSE 67–76; RESP 16–32; TEMP 36.4–37.1; O2SAT 92–99
[2018-10-07 00:01] LABS: Bedside Glucose 205 mg/dL (70-110)
[2018-10-07 05:59] LABS: Absolute Lymphocyte Count 0.97 X10^3/ul (0.83-4.51); Absolute Neutrophil Count 7.8 X10^3/uL (2.0-7.7); Basophil# 0.02 X10^3/uL; Basophil% 0.2 % (0-1); Eosinophil# 0.22 X10^3/uL; Eosinophils% 2.2 % (0-5); Hematocrit 28.7 % (37-47); Hemoglobin 9.4 g/dl (12.0-15.0); Lymphocyte # 0.97 X10^3/ul (4.0); Lymphocyte % 9.7 % (19-41); Mean Corp Hgb Conc 32.8 g/gl (32-36); Mean Corpuscular Hgb 25.1 pg (27.0-32.0); Mean Corpuscular Volume 76.7 fL (81-99); Mean Platelet Vol. 10.5 fl (6.2-12.0); Monocyte# 0.77 X10^3/uL; Monocyte% 7.7 % (0-10); Neutrophil % 78.4 % (47-70); Partial Thromboplast Time 64.7 Seconds (24.1-36.2); Platelet Count 200 K/mm3 (150-450); RBC Distribution Width CV 17.2 % (11.6-14.6); RBC Distribution Width SD 45.6 fl (35.1-43.9); Red Blood Count 3.74 M/mm3 (4.2-5.4)
[2018-10-07 06:00] LABS: POSITIVE COUNT NO; POSITIVE DIFFERENTIAL NO; POSITIVE MORPHOLOGY NO
[2018-10-07 06:33] LABS: Anion Gap 9 (5-15); BUN 60 mg/dL (7-18); BUN/Creat Ratio 27.3 RATIO (10-20); Calcium,Total 8.7 mg/dL (8.5-10.1); Chloride 112 mmol/L (98-107); EST Glomerular Filtration Rate 24 mL/min (>60); Est Glom Filt Rate - Afr Amer 29 mL/min (>60); Estimated Creatinine Clearance 20.81 ml/min; Glucose 145 mg/dL (74-106); Potassium 4.1 mmol/L (3.5-5.1); Sodium Level 142 mmol/L (136-145)
[2018-10-07] MEDS: Amiodarone 200 MG Tablet PO ×3 (07:05→22:02)
[2018-10-07] MEDS: Sodium Bicarbonate 650 MG Tablet 1300 MG PO ×3 (07:05→22:02)
[2018-10-07] MEDS: hydrALAZINE 50 MG Tablet PO ×2 (07:06→22:02)
[2018-10-07 07:16] LABS: Bedside Glucose 148 mg/dL (70-110)
--- NOTE | 2018-10-07 07:47 | PCM.PN.PUL ---
Patient Problems: Active and Suspected Problems (Last Reviewed 07/11/18 @ 14:55 by Dede Kasper) Atrial fibrillation (Acute) CVA (cerebral vascular accident) (Suspected) DKA (diabetic ketoacidoses) (Acute) Renal insufficiency (Acute) Hypertriglyceridemia (Acute) Subjective: The patient was seen and examined at the bedside this morning. Events from the last 24 hours have been reviewed. The patient is currently afebrile, hemodynamically stable and maintaining appropriate oxygen saturations on 3 L/min via nasal cannula. The patient remains compliant with nocturnal CPAP therapy per home regimen. Creatinine continues to improve. Of note, the patient's MRSA screen was noted to be positive yesterday. The patient is currently documented to be overall net +5.6 L for the admission. The patient is currently sitting in her bedside recliner eating breakfast. She appears much less distressed than yesterday. Objective: The patient's most recent lab work, culture data and imaging studies have all been personally reviewed. Strep and urine Legionella antigens were both negative. Blood cultures have shown no growth to date. Urine culture was positive for E. coli. - Physical Exam General: Alert, Cooperative, No apparent distress HEENT: Atraumatic, PERRLA, Normocephalic Oral: No Gingival or Mucosal Lesions/ Ulcerations Neck: Supple, No Nodes, Trachea Midline Lungs: No rhonchi, No wheeze, Diminished, Rales Cardiovascular: Normal S1, Normal S2, No murmurs, Irregular Rate Abdomen: Bowel Sounds Present, Soft, Non Tender, Obese Extremities: No clubbing, No cyanosis, No edema Skin: - - No significant change from previous. Musculoskeletal: No Tenderness to Palpation of Joints or Extremities, No Muscle Wasting Lymphatic: No Cervical, Supraclavicular, or Inguinal Adenopathy Neurological: Cranial nerves II-XII grossly intact, Neuro grossly intact Psych/Mental Status: Normal Affect, Appropriate Vital Signs Temp Pulse Resp BP Pulse Ox 98.1 F 70 24 H 142/67 H 99 10/07/18 06:55 10/07/18 07:06 10/07/18 06:55 10/07/18 06:55 10/07/18 06:55 Oxygen Flow Rate (L/min) 3 Oxygen Delivery Method CPAP Weight: 241 lb 2.971 oz Body Mass Index (BMI) 40.6 Finger Stick Blood Glucose 158 Intake and Output for Last 24 Hours 10/05/18 10/06/18 10/07/18 23:59 23:59 23:59 Intake Total 2324 / 2324 1059 / 1059 326.1 / 326.1 Output Total 1350 / 1350 1700 / 1700 700 / 700 Balance 974 / 974 -641 / -641 -373.9 / -373.9 Microbiology Past 72 Hours 10/06/18 20:00 Streptococcus pneumoniae Antigen (M - Final Urine, Random 10/06/18 20:00 Legionella Antigen - Final Urine, Random 10/03/18 18:31 Blood Culture - Preliminary Blood Culture (Wb) - Right Hand No growth in 48 hours. 10/03/18 18:20 Blood Culture - Preliminary Blood Culture (Wb) - Right Wrist No growth in 48 hours. 10/03/18 21:15 Urine Culture - Final Urine Catheter - Catheter Escherichia coli Laboratory Tests Past 24 Hrs 10/06/18 10/06/18 10/06/18 08:33 08:36 16:28 WBC RBC Hgb Hct MCV MCH MCHC RDW RDW Differential Plt Count MPV Immature Gran % (Auto) Neut % (Auto) Lymph % (Auto) [place] % (Auto) Eos % (Auto) Baso % (Auto) Absolute Neuts (auto) Absolute Lymphs (auto) Total Counted APTT 39.6 H 57.5 H Specimen Type ART Sample Site L Radial pH 7.42 Bicarbonate Actual 17.1 L POC Total CO2 18 Base Excess -7 L O2 Saturation 99 ABG pCO2 26.5 L ABG pO2 113 H O2 Delivery Device Nasal Can Liter Flow 6.0 Blood Gas Notified Whom HOSP Blood Gas Notified Time 840 Sodium Potassium Chloride Carbon Dioxide Anion Gap BUN Creatinine Estim Creat Clear Calc Est GFR (MDRD) Af Amer Est GFR (MDRD) Non-Af BUN/Creatinine Ratio Glucose Calcium MRSA (PCR) 10/06/18 10/06/18 10/07/18 17:00 22:18 05:40 WBC 10.0 RBC 3.74 L Hgb 9.4 L Hct 28.7 L MCV 76.7 L MCH 25.1 L MCHC 32.8 RDW 17.2 H RDW Differential 45.6 H Plt Count 200 MPV 10.5 Immature Gran % (Auto) 1.800 H Neut % (Auto) 78.4 H Lymph % (Auto) 9.7 L [place] % (Auto) 7.7 Eos % (Auto) 2.2 Baso % (Auto) 0.2 Absolute Neuts (auto) 7.8 H Absolute Lymphs (auto) 0.97 Total Counted Not Reportable APTT 54.9 H Specimen Type Sample Site pH Bicarbonate Actual POC Total CO2 Base Excess O2 Saturation ABG pCO2 ABG pO2 O2 Delivery Device Liter Flow Blood Gas Notified Whom Blood Gas Notified Time Sodium Potassium Chloride Carbon Dioxide Anion Gap BUN Creatinine Estim Creat Clear Calc Est GFR (MDRD) Af Amer Est GFR (MDRD) Non-Af BUN/Creatinine Ratio Glucose Calcium MRSA (PCR) POSITIVE H 10/07/18 10/07/18 05:40 05:40 WBC RBC Hgb Hct MCV MCH MCHC RDW RDW Differential Plt Count MPV Immature Gran % (Auto) Neut % (Auto) Lymph % (Auto) [place] % (Auto) Eos % (Auto) Baso % (Auto) Absolute Neuts (auto) Absolute Lymphs (auto) Total Counted APTT 64.7 H Specimen Type Sample Site pH Bicarbonate Actual POC Total CO2 Base Excess O2 Saturation ABG pCO2 ABG pO2 O2 Delivery Device Liter Flow Blood Gas Notified Whom Blood Gas Notified Time Sodium 142 Potassium 4.1 Chloride 112 H Carbon Dioxide 21.0 Anion Gap 9 BUN 60 H Creatinine 2.20 H Estim Creat Clear Calc 20.81 Est GFR (MDRD) Af Amer 29 L Est GFR (MDRD) Non-Af 24 L BUN/Creatinine Ratio 27.3 H Glucose 145 H Calcium 8.7 MRSA (PCR) POC Glucose 10/07/18 10/06/18 10/06/18 07:04 23:19 16:31 POC Glucose 148 H 205 H 267 H 10/06/18 10/06/18 11:54 09:33 POC Glucose 295 H 277 H Clinical Impression(s) from Imaging Studies Brain CT 10/03/18 14:45 IMPRESSION: Findings suggestive of a lacunar infarct in the insular cortex of the right temporal lobe. Decreased attenuation in the posterior right temporal parietal lobe. Subacute ischemia should BE ruled out. Electronically Signed: Jordan Jones, at 15:09 EDT , Service support , Renal Ultrasound 10/03/18 17:59 IMPRESSION: Normal ultrasound of the kidneys. Electronically Signed: Sridhar Marinelli DO at 23:20 EDT Tel [phone], Service support , Chest X-Ray 10/03/18 20:52 IMPRESSION: No acute cardiopulmonary disease. Electronically Signed: Sridhar Marinelli DO at 23:19 EDT Tel [phone], Service support , Brain MRI 10/04/18 08:30 IMPRESSION: Suspicion of a 2.9 mm acute lacunar infarction within the right centrum semiovale Electronically Signed: Raffy Pineda MD at 2:17 EDT Tel , Service support , Head MRA 10/04/18 08:30 IMPRESSION: Normal MRA of the head except for a dominant right vertebral artery Electronically Signed: Raffy Pineda MD at 2:21 EDT Tel , Service support , Neck MRA 10/04/18 08:30 IMPRESSION: Normal bilateral cervical carotid and vertebral arteries. Electronically Signed: Raffy Pineda MD at 2:19 EDT Tel , Service support , Cervical Spine MRI 10/05/18 13:05 IMPRESSION: No abnormal cervical cord signal Slightly increased T3-4 intervertebral disc disease with mild ventral cord flattening Stable C3-C7 anterior surgical fixation with endplate fusion Stable multilevel posterior osseous ridging with mild central canal narrowing Stable multilevel severe neural foraminal narrowing Stable osseous degenerative changes Electronically Signed: Wale Bee DO at 11:40 EDT Tel , Service support , Chest X-Ray 10/05/18 13:51 IMPRESSION: Multifocal airspace opacities predominating at the right perihilar region (suspected asymmetric pulmonary edema versus less likely infection) Mild cardiomegaly Degenerative/postsurgical changes, as above Electronically Signed: Wale Cristal, at 14:32 EDT Tel , Service support , Lumbar Spine MRI 10/05/18 13:52 IMPRESSION: No acute fracture or dislocation Extensive multilevel intervertebral disc disease without significant central canal narrowing Multilevel neural foraminal narrowing with impingement of the right L2, right L3 and bilateral L4 nerve roots Slightly exaggerated lumbar lordosis with minimal levoscoliosis Multilevel osseous degenerative changes with multilevel laminectomies Electronically Signed: Wale Bee, at 11:51 EDT Tel , Service support , Chest CT 10/06/18 07:38 IMPRESSION: Bilateral airspace disease worse in the right hemithorax with a small right pleural effusion. Electronically Signed: Jordan Jones, at 9:28 EDT , Service support , Medical Necessity - Tobacco Use Smoking Status: Never smoker Tobacco Use: Non-smoker Assessment/Plan All Active Problems (Last Reviewed 07/11/18 @ 14:55 by Dede Kasper) Atrial fibrillation (Acute) DKA (diabetic ketoacidoses) (Acute) Renal insufficiency (Acute) Hypertriglyceridemia (Acute) Abnormal mammogram of right breast (Acute) RECOMMENDATIONS: 1. Continue Zosyn as ordered. If the patient decompensates, recommend adding vancomycin, given positive MRSA screen. 2. Obtain and send sputum for culture. 3. Encourage chest physiotherapy with PEP and IS. 4. Wean supplemental oxygen to maintain saturations at or above 90%. 5. Continue nocturnal CPAP therapy per home regimen. 6. Defer management of atrial fibrillation/hypertension to cardiology. IMPRESSIONS: 1. Acute hypoxemic respiratory failure secondary to multifocal pneumonia The patient's chest CT from this morning was personally reviewed and did reveal evidence of multifocal airspace disease most pronounced throughout the right hemithorax with mild residual disease noted in the left base. The patient was placed on broad-spectrum antimicrobials and appears to be improving clinically. Of note, she did have a positive MRSA screen. Therefore, the patient were to begin to decompensate, would recommend adding vancomycin at that time. If the patient does begin to produce sputum, please send for culture. Continue to wean supplemental oxygen to maintain saturations at or above 90%. Continue chest physiotherapy with PEP and IS. 2. E. coli cystitis Continue antibiotic coverage as noted above. 3. Acute ischemic CVA Continue current medical management per neurology recommendations. 4. New onset atrial fibrillation with RVR/hypertension Cardiology is following to assist with medical management. 5. Acute kidney injury Improving. Likely prerenal in etiology. Responded to volume resuscitation. Continue to monitor urine output. No indication for renal replacement therapy. 6. Personal history of obstructive sleep apnea Continue nocturnal CPAP therapy per home regimen. The patient regularly follows with Dr. Raymond. 7. Microcytic anemia/diabetes mellitus/depression/hypertension/hyperlipidemia/obesity Complicates care, management, recovery and prognosis. Physical therapy to continue to work with the patient. This note was generated with [employer] dictation software. It may contain incorrect words, spelling, and punctuation that were not noted in checking the note before signing. Code Visit Inpatient E&M: 91979 Subs Hosp L2
--- NOTE | 2018-10-07 07:51 | PN_ITS ---
Patient Problems: Active and Suspected Problems (Last Reviewed 07/11/18 @ 14:55 by Dede Kasper) Atrial fibrillation (Acute) CVA (cerebral vascular accident) (Suspected) DKA (diabetic ketoacidoses) (Acute) Renal insufficiency (Acute) Hypertriglyceridemia (Acute) Subjective: The patient was seen and examined at the bedside this morning. Events from the last 24 hours have been reviewed. The patient is currently afebrile, hemodynamically stable and maintaining appropriate oxygen saturations on 3 L/min via nasal cannula. The patient remains compliant with nocturnal CPAP therapy per home regimen. Creatinine continues to improve. Of note, the patient's MRSA screen was noted to be positive yesterday. The patient is currently documented to be overall net +5.6 L for the admission. The patient is currently sitting in her bedside recliner eating breakfast. She appears much less distressed than yesterday. Objective: The patient's most recent lab work, culture data and imaging studies have all been personally reviewed. Strep and urine Legionella antigens were both negative. Blood cultures have shown no growth to date. Urine culture was positive for E. coli. - Physical Exam General: Alert, Cooperative, No apparent distress HEENT: Atraumatic, PERRLA, Normocephalic Oral: No Gingival or Mucosal Lesions/ Ulcerations Neck: Supple, No Nodes, Trachea Midline Lungs: No rhonchi, No wheeze, Diminished, Rales Cardiovascular: Normal S1, Normal S2, No murmurs, Irregular Rate Abdomen: Bowel Sounds Present, Soft, Non Tender, Obese Extremities: No clubbing, No cyanosis, No edema Skin: - - No significant change from previous. Musculoskeletal: No Tenderness to Palpation of Joints or Extremities, No Muscle Wasting Lymphatic: No Cervical, Supraclavicular, or Inguinal Adenopathy Neurological: Cranial nerves II-XII grossly intact, Neuro grossly intact Psych/Mental Status: Normal Affect, Appropriate Vital Signs Temp Pulse Resp BP Pulse Ox 98.1 F 70 24 H 142/67 H 99 10/07/18 06:55 10/07/18 07:06 10/07/18 06:55 10/07/18 06:55 10/07/18 06:55 Oxygen Flow Rate (L/min) 3 Oxygen Delivery Method CPAP Weight: 241 lb 2.971 oz Body Mass Index (BMI) 40.6 Finger Stick Blood Glucose 158 Intake and Output for Last 24 Hours 10/05/18 10/06/18 10/07/18 23:59 23:59 23:59 Intake Total 2324 / 2324 1059 / 1059 326.1 / 326.1 Output Total 1350 / 1350 1700 / 1700 700 / 700 Balance 974 / 974 -641 / -641 -373.9 / -373.9 Microbiology Past 72 Hours 10/06/18 20:00 Streptococcus pneumoniae Antigen (M - Final Urine, Random 10/06/18 20:00 Legionella Antigen - Final Urine, Random 10/03/18 18:31 Blood Culture - Preliminary Blood Culture (Wb) - Right Hand No growth in 48 hours. 10/03/18 18:20 Blood Culture - Preliminary Blood Culture (Wb) - Right Wrist No growth in 48 hours. 10/03/18 21:15 Urine Culture - Final Urine Catheter - Catheter Escherichia coli Laboratory Tests Past 24 Hrs 10/06/18 10/06/18 10/06/18 08:33 08:36 16:28 WBC RBC Hgb Hct MCV MCH MCHC RDW RDW Differential Plt Count MPV Immature Gran % (Auto) Neut % (Auto) Lymph % (Auto) [place] % (Auto) Eos % (Auto) Baso % (Auto) Absolute Neuts (auto) Absolute Lymphs (auto) Total Counted APTT 39.6 H 57.5 H Specimen Type ART Sample Site L Radial pH 7.42 Bicarbonate Actual 17.1 L POC Total CO2 18 Base Excess -7 L O2 Saturation 99 ABG pCO2 26.5 L ABG pO2 113 H O2 Delivery Device Nasal Can Liter Flow 6.0 Blood Gas Notified Whom HOSP Blood Gas Notified Time 840 Sodium Potassium Chloride Carbon Dioxide Anion Gap BUN Creatinine Estim Creat Clear Calc Est GFR (MDRD) Af Amer Est GFR (MDRD) Non-Af BUN/Creatinine Ratio Glucose Calcium MRSA (PCR) 10/06/18 10/06/18 10/07/18 17:00 22:18 05:40 WBC 10.0 RBC 3.74 L Hgb 9.4 L Hct 28.7 L MCV 76.7 L MCH 25.1 L MCHC 32.8 RDW 17.2 H RDW Differential 45.6 H Plt Count 200 MPV 10.5 Immature Gran % (Auto) 1.800 H Neut % (Auto) 78.4 H Lymph % (Auto) 9.7 L [place] % (Auto) 7.7 Eos % (Auto) 2.2 Baso % (Auto) 0.2 Absolute Neuts (auto) 7.8 H Absolute Lymphs (auto) 0.97 Total Counted Not Reportable APTT 54.9 H Specimen Type Sample Site pH Bicarbonate Actual POC Total CO2 Base Excess O2 Saturation ABG pCO2 ABG pO2 O2 Delivery Device Liter Flow Blood Gas Notified Whom Blood Gas Notified Time Sodium Potassium Chloride Carbon Dioxide Anion Gap BUN Creatinine Estim Creat Clear Calc Est GFR (MDRD) Af Amer Est GFR (MDRD) Non-Af BUN/Creatinine Ratio Glucose Calcium MRSA (PCR) POSITIVE H 10/07/18 10/07/18 05:40 05:40 WBC RBC Hgb Hct MCV MCH MCHC RDW RDW Differential Plt Count MPV Immature Gran % (Auto) Neut % (Auto) Lymph % (Auto) [place] % (Auto) Eos % (Auto) Baso % (Auto) Absolute Neuts (auto) Absolute Lymphs (auto) Total Counted APTT 64.7 H Specimen Type Sample Site pH Bicarbonate Actual POC Total CO2 Base Excess O2 Saturation ABG pCO2 ABG pO2 O2 Delivery Device Liter Flow Blood Gas Notified Whom Blood Gas Notified Time Sodium 142 Potassium 4.1 Chloride 112 H Carbon Dioxide 21.0 Anion Gap 9 BUN 60 H Creatinine 2.20 H Estim Creat Clear Calc 20.81 Est GFR (MDRD) Af Amer 29 L Est GFR (MDRD) Non-Af 24 L BUN/Creatinine Ratio 27.3 H Glucose 145 H Calcium 8.7 MRSA (PCR) POC Glucose 10/07/18 10/06/18 10/06/18 07:04 23:19 16:31 POC Glucose 148 H 205 H 267 H 10/06/18 10/06/18 11:54 09:33 POC Glucose 295 H 277 H Clinical Impression(s) from Imaging Studies Brain CT 10/03/18 14:45 IMPRESSION: Findings suggestive of a lacunar infarct in the insular cortex of the right temporal lobe. Decreased attenuation in the posterior right temporal parietal lobe. Subacute ischemia should BE ruled out. Electronically Signed: Jordan Jones, at 15:09 EDT , Service support , Renal Ultrasound 10/03/18 17:59 IMPRESSION: Normal ultrasound of the kidneys. Electronically Signed: Sridhar Marinelli DO at 23:20 EDT Tel [phone], Service support , Chest X-Ray 10/03/18 20:52 IMPRESSION: No acute cardiopulmonary disease. Electronically Signed: Sridhar Marinelli DO at 23:19 EDT Tel [phone], Service support , Brain MRI 10/04/18 08:30 IMPRESSION: Suspicion of a 2.9 mm acute lacunar infarction within the right centrum semiovale Electronically Signed: Raffy Pineda MD at 2:17 EDT Tel , Service support , Head MRA 10/04/18 08:30 IMPRESSION: Normal MRA of the head except for a dominant right vertebral artery Electronically Signed: Raffy Pineda MD at 2:21 EDT Tel , Service support , Neck MRA 10/04/18 08:30 IMPRESSION: Normal bilateral cervical carotid and vertebral arteries. Electronically Signed: Raffy Pineda MD at 2:19 EDT Tel , Service support , Cervical Spine MRI 10/05/18 13:05 IMPRESSION: No abnormal cervical cord signal Slightly increased T3-4 intervertebral disc disease with mild ventral cord flattening Stable C3-C7 anterior surgical fixation with endplate fusion Stable multilevel posterior osseous ridging with mild central canal narrowing Stable multilevel severe neural foraminal narrowing Stable osseous degenerative changes Electronically Signed: Wale Bee DO at 11:40 EDT Tel , Service support , Chest X-Ray 10/05/18 13:51 IMPRESSION: Multifocal airspace opacities predominating at the right perihilar region (suspected asymmetric pulmonary edema versus less likely infection) Mild cardiomegaly Degenerative/postsurgical changes, as above Electronically Signed: Wale Cristal, at 14:32 EDT Tel , Service support , Lumbar Spine MRI 10/05/18 13:52 IMPRESSION: No acute fracture or dislocation Extensive multilevel intervertebral disc disease without significant central canal narrowing Multilevel neural foraminal narrowing with impingement of the right L2, right L3 and bilateral L4 nerve roots Slightly exaggerated lumbar lordosis with minimal levoscoliosis Multilevel osseous degenerative changes with multilevel laminectomies Electronically Signed: Wale Bee, at 11:51 EDT Tel , Service support , Chest CT 10/06/18 07:38 IMPRESSION: Bilateral airspace disease worse in the right hemithorax with a small right pleural effusion. Electronically Signed: Jordan Jones, at 9:28 EDT , Service support , Medical Necessity - Tobacco Use Smoking Status: Never smoker Tobacco Use: Non-smoker Assessment/Plan All Active Problems (Last Reviewed 07/11/18 @ 14:55 by Dede Kasper) Atrial fibrillation (Acute) DKA (diabetic ketoacidoses) (Acute) Renal insufficiency (Acute) Hypertriglyceridemia (Acute) Abnormal mammogram of right breast (Acute) RECOMMENDATIONS: 1. Continue Zosyn as ordered. If the patient decompensates, recommend adding vancomycin, given positive MRSA screen. 2. Obtain and send sputum for culture. 3. Encourage chest physiotherapy with PEP and IS. 4. Wean supplemental oxygen to maintain saturations at or above 90%. 5. Continue nocturnal CPAP therapy per home regimen. 6. Defer management of atrial fibrillation/hypertension to cardiology. IMPRESSIONS: 1. Acute hypoxemic respiratory failure secondary to multifocal pneumonia The patient's chest CT from this morning was personally reviewed and did reveal evidence of multifocal airspace disease most pronounced throughout the right hemithorax with mild residual disease noted in the left base. The patient was placed on broad-spectrum antimicrobials and appears to be improving clinically. Of note, she did have a positive MRSA screen. Therefore, the patient were to begin to decompensate, would recommend adding vancomycin at that time. If the patient does begin to produce sputum, please send for culture. Continue to wean supplemental oxygen to maintain saturations at or above 90%. Continue chest physiotherapy with PEP and IS. 2. E. coli cystitis Continue antibiotic coverage as noted above. 3. Acute ischemic CVA Continue current medical management per neurology recommendations. 4. New onset atrial fibrillation with RVR/hypertension Cardiology is following to assist with medical management. 5. Acute kidney injury Improving. Likely prerenal in etiology. Responded to volume resuscitation. Continue to monitor urine output. No indication for renal replacement therapy. 6. Personal history of obstructive sleep apnea Continue nocturnal CPAP therapy per home regimen. The patient regularly follows with Dr. Raymond. 7. Microcytic anemia/diabetes mellitus/depression/hypertension/hyperlipidemia/ obesity Complicates care, management, recovery and prognosis. Physical therapy to continue to work with the patient. This note was generated with [employer] dictation software. It may contain incorrect words, spelling, and punctuation that were not noted in checking the note before signing. Code Visit Inpatient E&M: 74937 Subs Hosp L2
[2018-10-07] MEDS: Acetaminophen 500 MG Tablet PO (07:54)
[2018-10-07] MEDS: Aspirin 81 MG TAB.CHEW PO (07:55)
[2018-10-07] MEDS: Tolterodine Tartrate 4 MG CAP.SA PO (07:56)
[2018-10-07] MEDS: Metoprolol Tartrate 100 MG Tablet PO ×2 (07:57→22:02)
[2018-10-07] MEDS: Sertraline 100 MG Tablet PO (07:57)
[2018-10-07] MEDS: HEPARIN/D5w 25,000 UNITS 25,000 UNITS/250 ML IV.SOLN. 20 UNITS IV (10:14)
[2018-10-07] MEDS: Saliva Substitute 237 ML BOTTLE 15 ML MM (10:15)
--- NOTE | 2018-10-07 10:22 | PCM.PN.HOSP ---
Patient Problems: Active and Suspected Problems (Last Reviewed 07/11/18 @ 14:55 by Dede Kasper) Atrial fibrillation (Acute) CVA (cerebral vascular accident) (Suspected) DKA (diabetic ketoacidoses) (Acute) Renal insufficiency (Acute) Hypertriglyceridemia (Acute) Subjective: Patient seen and examined. She complained of a sore throat and dry mouth. She denied any fever chills or palpitations, dizziness, and shortness of breath that improved significantly. She was now on 3 L of oxygen. Labs and vitals reviewed. She is now off amiodarone drip and has been transitioned to p.o. amiodarone and metoprolol. Vitals/I&O's: Vital Signs Temp Pulse Resp BP Pulse Ox 98.1 F 73 24 H 142/67 H 96 10/07/18 06:55 10/07/18 07:57 10/07/18 06:55 10/07/18 06:55 10/07/18 09:22 Oxygen Flow Rate (L/min) 2 Oxygen Delivery Method Nasal Cannula Weight: 241 lb 2.971 oz Body Mass Index (BMI) 40.6 Finger Stick Blood Glucose 158 Intake and Output for Last 24 Hours 10/05/18 10/06/18 10/07/18 23:59 23:59 23:59 Intake Total 2324 / 2324 1059 / 1059 326.1 / 326.1 Output Total 1350 / 1350 1700 / 1700 700 / 700 Balance 974 / 974 -641 / -641 -373.9 / -373.9 General: Alert, Cooperative HEENT: Atraumatic, PERRLA, Normocephalic Oral: No Gingival or Mucosal Lesions/ Ulcerations Neck: Supple, No Nodes, Trachea Midline Lungs: No rhonchi, No wheeze, Diminished, Tachypneic, on 3L of oxygen by nasal canula Cardiovascular: Normal S1, Normal S2, No murmurs, Abdomen: Bowel Sounds Present, Soft, Non Tender, Obese Extremities: No clubbing, No cyanosis, No edema Skin: - - No significant change from previous Musculoskeletal: No Tenderness to Palpation of Joints or Extremities Lymphatic: No Cervical, Supraclavicular, or Inguinal Adenopathy Neurological: Neuro grossly intact Psych/Mental Status: Normal Affect, Appropriate Microbiology Past 72 Hours 10/06/18 20:00 Urine, Random Streptococcus pneumoniae Antigen (M - Final 10/06/18 20:00 Urine, Random Legionella Antigen - Final 10/03/18 18:31 Blood Culture (Wb) - Right Hand Blood Culture - Preliminary No growth in 48 hours. 10/03/18 18:20 Blood Culture (Wb) - Right Wrist Blood Culture - Preliminary No growth in 48 hours. 10/03/18 21:15 Urine Catheter - Catheter Urine Culture - Final Escherichia coli Laboratory Results 10/06/18 09:33: POC Glucose 277 H 10/06/18 11:54: POC Glucose 295 H 10/06/18 16:28: APTT 57.5 H 10/06/18 16:31: POC Glucose 267 H 10/06/18 17:00: MRSA (PCR) POSITIVE H 10/06/18 22:18: APTT 54.9 H 10/06/18 23:19: POC Glucose 205 H 10/07/18 05:40: WBC 10.0, RBC 3.74 L, Hgb 9.4 L, Hct 28.7 L, MCV 76.7 L, MCH 25.1 L, MCHC 32.8, RDW 17.2 H, RDW Differential 45.6 H, Plt Count 200, MPV 10.5, Immature Gran % (Auto) 1.800 H, Neut % (Auto) 78.4 H, Lymph % (Auto) 9.7 L, [place] % (Auto) 7.7, Eos % (Auto) 2.2, Baso % (Auto) 0.2, Absolute Neuts (auto) 7.8 H, Absolute Lymphs (auto) 0.97, Total Counted Not Reportable 10/07/18 05:40: Sodium 142, Potassium 4.1, Chloride 112 H, Carbon Dioxide 21.0, Anion Gap 9, BUN 60 H, Creatinine 2.20 H, Estim Creat Clear Calc 20.81, Est GFR (MDRD) Af Amer 29 L, Est GFR (MDRD) Non-Af 24 L, BUN/Creatinine Ratio 27.3 H, Glucose 145 H, Calcium 8.7 10/07/18 05:40: APTT 64.7 H 10/07/18 07:04: POC Glucose 148 H Current Medications Acetaminophen (Tylenol) 500 mg PO Q6H PRN PRN PRN Reason: PAIN Last Admin: 10/07/18 07:54 Dose: 500 mg Amiodarone HCl (Cordarone) 200 mg PO TID [facility] Last Admin: 10/07/18 07:05 Dose: 200 mg Aspirin (Aspirin, Baby) 81 mg PO DAILY@0800 [facility] Last Admin: 10/07/18 07:55 Dose: 81 mg Atorvastatin Calcium (Lipitor) 40 mg PO QHS [facility] Last Admin: 10/06/18 23:31 Dose: 40 mg Cyclobenzaprine HCl (Cyclobenzaprine Hcl) 5 mg PO TID PRN PRN PRN Reason: SPASMS Dextrose (D50w Syringe) 0 gm IV X1 PRN; Protocol PRN Reason: Hypoglycemia Glucagon () 1 mg IM .X1 PRN PRN Reason: Hypoglycemia Heparin Sodium (Porcine) (Heparin Na) 0 unit IV UD PRN; Protocol Last Admin: 10/06/18 23:34 Dose: 1,000 unit Hydralazine HCl (Apresoline Iv) 10 mg IV Q6H PRN PRN PRN Reason: BLOOD PRESSURE ELEVATION Last Admin: 10/06/18 10:13 Dose: 10 mg Hydralazine HCl (Apresoline) 50 mg PO TID [facility] Last Admin: 10/07/18 07:06 Dose: 50 mg Sodium Chloride () 250 mls @ 15 mls/hr IV .[id number] PRN PRN Reason: SALINE FLUSH Sodium Chloride () 500 mls @ 15 mls/hr IV .[id number] PRN PRN Reason: SALINE FLUSH Heparin Sodium/Dextrose () 25,000 units in 250 mls @ 15 mls/hr IV .[id number] [facility]; Protocol Last Admin: 10/07/18 10:14 Dose: 20 mls/hr Piperacillin Sod/Tazobactam (Sod 3.375 gm/ Sodium Chloride) 50 mls @ 12.5 mls/hr IV Q12 [facility] Last Admin: 10/07/18 09:26 Dose: 12.5 mls/hr Insulin Glargine (Lantus (Bkc)) 10 units SC DAILY [facility] Last Admin: 10/07/18 07:56 Dose: 10 u Insulin Human Lispro (Humalog Kwikpen (Bkc)) 0 unit SC ACHS [facility]; Protocol Last Admin: 10/07/18 07:06 Dose: Not Given Labetalol HCl (Trandate) 10 mg IV Q4H PRN PRN PRN Reason: SBP>180 mmhg/HR>120 Last Admin: 10/06/18 05:01 Dose: 10 mg Metoprolol Tartrate (Lopressor (Beta Keanu)) 100 mg PO BID [facility] Last Admin: 10/07/18 07:57 Dose: 100 mg Sertraline HCl (Zoloft) 100 mg PO DAILY [facility] Last Admin: 10/07/18 07:57 Dose: 100 mg Sodium Bicarbonate (Sodium Bicarbonate) 1,300 mg PO TID [facility] Last Admin: 10/07/18 07:05 Dose: 1,300 mg Sodium Chloride () 5 - 15 ml IV UD PRN PRN Reason: SALINE FLUSH Last Admin: 10/06/18 10:27 Dose: 10 ml Throat Lozenges (Cepacol Sore Throat Lozenge) 2 lozenge MUCOUS MEM Q2H PRN PRN PRN Reason: SORE THROAT Tolterodine Tartrate (Detrol La) 4 mg PO DAILY [facility] Last Admin: 10/07/18 07:56 Dose: 4 mg Medical Necessity - Tobacco Use Smoking Status: Never smoker Tobacco Use: Non-smoker Assessment/Plan All Active Problems (Last Reviewed 07/11/18 @ 14:55 by Dede Kasper) Atrial fibrillation (Acute) DKA (diabetic ketoacidoses) (Acute) Renal insufficiency (Acute) Hypertriglyceridemia (Acute) Abnormal mammogram of right breast (Acute) 68-year-old female admitted with a complaint of generalized malaise and weakness found to be in A. fib with RVR, DKA and having severe CRISTIAN. 1. Afib with RVR now off amiodarone drip; on PO amiodarone and metoprolol. TO have PO amiodarone 200mg tid till Tuesday, then switch to amiodarone 200mg bid. cardiology on board 2D echo showed: EF of 75%, with moderately enlarged left atrium and normal right atrium; mild mitral valve stenosis, estimated RVSP of 48mmHg; mild aortic stenosis. cardiology on board on heparin drip. for stress test and further workup once acute illness phase is over CHADVASC scdore now 4, since stroke has been ruled out per neurology per cardiology, to have stress test and further workup once acute illness is over. currently on heparin drip. 2. Acute hypoxic respiratory failure due to pneumonia now down to 2-3L of oxygen. Still tachypneic, breathing in mid 20s Chest CT showed bilateral airspace disease, worse in right hemithorax, with a small right pleural effusion. will broaden IV antibiotics from ceftriaxone to IV zosyn. pulmonology on board BIPAP prn and titrate oxygen to maintain sats>90% 3. DKA resolved. A1C was 9.8 on insulin 10IU qhs; hold metformin, januvia and glimepiride for now accuchecks ACHS; ISS 4. CRISTIAN Cr was 5.31 on admisison, is now down to 2.20 FeNA was 1%, indicating pre-renal cause renal USG was unremarkable CPK was WNL IVF stopped. nephrology on board 5. Sepsis due to UTI and pneumonia antibiotics broadened to IV zosyn. urine cultured E. coli, sensitive to ceftriaxone blood cultures showed no growth in 48 hours 6. Hyperkalemia and nonanion gap metabolic acidosis potassium is down to 4.1 today bicarb up to 21; started on oral sodium bicarbonate per nephrology yesterday. 7. Acute ischemic CVA NIHSS- [address] brain showed lacunar infarct in insular cortex of right temporal lobe and decreased attenuation in the posterior right temporal parietal lobe; subacute ischemia should be ruled out MRI showed suspicition for 2.9mm actue lacunar infarct in right centrum semiovale discussed with neurology: per Dr Thorpe, this is due to an over read of the imaging, he doesnt think patient had a stroke, per his review of imaging. MRA of neck was normal, and MRA of head was also normal except for dominant right vertebral artery on high intensity statin and aspirin PT/OT on board 8. Hyponatremia: resolved 9. Hypertension: fairly well controlled. on PO metoprolol. Losartan still held o/a of CRISTIAN IV hydralazine prn. 10. Urinary retention: On oxybutynin. DVT prophylaxis:on heparin drip Code Visit Inpatient E&M: [id number] Subs Hosp L3
--- NOTE | 2018-10-07 10:28 | PN_ITS ---
Patient Problems: Active and Suspected Problems (Last Reviewed 07/11/18 @ 14:55 by Dede Kasper) Atrial fibrillation (Acute) CVA (cerebral vascular accident) (Suspected) DKA (diabetic ketoacidoses) (Acute) Renal insufficiency (Acute) Hypertriglyceridemia (Acute) Subjective: Patient seen and examined. She complained of a sore throat and dry mouth. She denied any fever chills or palpitations, dizziness, and shortness of breath that improved significantly. She was now on 3 L of oxygen. Labs and vitals reviewed. She is now off amiodarone drip and has been transitioned to p.o. amiodarone and metoprolol. Vitals/I&O's: Vital Signs Temp Pulse Resp BP Pulse Ox 98.1 F 73 24 H 142/67 H 96 10/07/18 06:55 10/07/18 07:57 10/07/18 06:55 10/07/18 06:55 10/07/18 09:22 Oxygen Flow Rate (L/min) 2 Oxygen Delivery Method Nasal Cannula Weight: 241 lb 2.971 oz Body Mass Index (BMI) 40.6 Finger Stick Blood Glucose 158 Intake and Output for Last 24 Hours 10/05/18 10/06/18 10/07/18 23:59 23:59 23:59 Intake Total 2324 / 2324 1059 / 1059 326.1 / 326.1 Output Total 1350 / 1350 1700 / 1700 700 / 700 Balance 974 / 974 -641 / -641 -373.9 / -373.9 General: Alert, Cooperative HEENT: Atraumatic, PERRLA, Normocephalic Oral: No Gingival or Mucosal Lesions/ Ulcerations Neck: Supple, No Nodes, Trachea Midline Lungs: No rhonchi, No wheeze, Diminished, Tachypneic, on 3L of oxygen by nasal canula Cardiovascular: Normal S1, Normal S2, No murmurs, Abdomen: Bowel Sounds Present, Soft, Non Tender, Obese Extremities: No clubbing, No cyanosis, No edema Skin: - - No significant change from previous Musculoskeletal: No Tenderness to Palpation of Joints or Extremities Lymphatic: No Cervical, Supraclavicular, or Inguinal Adenopathy Neurological: Neuro grossly intact Psych/Mental Status: Normal Affect, Appropriate Microbiology Past 72 Hours 10/06/18 20:00 Urine, Random Streptococcus pneumoniae Antigen (M - Final 10/06/18 20:00 Urine, Random Legionella Antigen - Final 10/03/18 18:31 Blood Culture (Wb) - Right Hand Blood Culture - Preliminary No growth in 48 hours. 10/03/18 18:20 Blood Culture (Wb) - Right Wrist Blood Culture - Preliminary No growth in 48 hours. 10/03/18 21:15 Urine Catheter - Catheter Urine Culture - Final Escherichia coli Laboratory Results 10/06/18 09:33: POC Glucose 277 H 10/06/18 11:54: POC Glucose 295 H 10/06/18 16:28: APTT 57.5 H 10/06/18 16:31: POC Glucose 267 H 10/06/18 17:00: MRSA (PCR) POSITIVE H 10/06/18 22:18: APTT 54.9 H 10/06/18 23:19: POC Glucose 205 H 10/07/18 05:40: WBC 10.0, RBC 3.74 L, Hgb 9.4 L, Hct 28.7 L, MCV 76.7 L, MCH 25.1 L, MCHC 32.8, RDW 17.2 H, RDW Differential 45.6 H, Plt Count 200, MPV 10.5, Immature Gran % (Auto) 1.800 H, Neut % (Auto) 78.4 H, Lymph % (Auto) 9.7 L, [place] % (Auto) 7.7, Eos % (Auto) 2.2, Baso % (Auto) 0.2, Absolute Neuts (auto) 7.8 H, Absolute Lymphs (auto) 0.97, Total Counted Not Reportable 10/07/18 05:40: Sodium 142, Potassium 4.1, Chloride 112 H, Carbon Dioxide 21.0, Anion Gap 9, BUN 60 H, Creatinine 2.20 H, Estim Creat Clear Calc 20.81, Est GFR (MDRD) Af Amer 29 L, Est GFR (MDRD) Non-Af 24 L, BUN/Creatinine Ratio 27.3 H, Glucose 145 H, Calcium 8.7 10/07/18 05:40: APTT 64.7 H 10/07/18 07:04: POC Glucose 148 H Current Medications Acetaminophen (Tylenol) 500 mg PO Q6H PRN PRN PRN Reason: PAIN Last Admin: 10/07/18 07:54 Dose: 500 mg Amiodarone HCl (Cordarone) 200 mg PO TID [facility] Last Admin: 10/07/18 07:05 Dose: 200 mg Aspirin (Aspirin, Baby) 81 mg PO DAILY@0800 [facility] Last Admin: 10/07/18 07:55 Dose: 81 mg Atorvastatin Calcium (Lipitor) 40 mg PO QHS [facility] Last Admin: 10/06/18 23:31 Dose: 40 mg Cyclobenzaprine HCl (Cyclobenzaprine Hcl) 5 mg PO TID PRN PRN PRN Reason: SPASMS Dextrose (D50w Syringe) 0 gm IV X1 PRN; Protocol PRN Reason: Hypoglycemia Glucagon () 1 mg IM .X1 PRN PRN Reason: Hypoglycemia Heparin Sodium (Porcine) (Heparin Na) 0 unit IV UD PRN; Protocol Last Admin: 10/06/18 23:34 Dose: 1,000 unit Hydralazine HCl (Apresoline Iv) 10 mg IV Q6H PRN PRN PRN Reason: BLOOD PRESSURE ELEVATION Last Admin: 10/06/18 10:13 Dose: 10 mg Hydralazine HCl (Apresoline) 50 mg PO TID [facility] Last Admin: 10/07/18 07:06 Dose: 50 mg Sodium Chloride () 250 mls @ 15 mls/hr IV .[id number] PRN PRN Reason: SALINE FLUSH Sodium Chloride () 500 mls @ 15 mls/hr IV .[id number] PRN PRN Reason: SALINE FLUSH Heparin Sodium/Dextrose () 25,000 units in 250 mls @ 15 mls/hr IV .[id number] [facility]; Protocol Last Admin: 10/07/18 10:14 Dose: 20 mls/hr Piperacillin Sod/Tazobactam (Sod 3.375 gm/ Sodium Chloride) 50 mls @ 12.5 mls/hr IV Q12 [facility] Last Admin: 10/07/18 09:26 Dose: 12.5 mls/hr Insulin Glargine (Lantus (Bkc)) 10 units SC DAILY [facility] Last Admin: 10/07/18 07:56 Dose: 10 u Insulin Human Lispro (Humalog Kwikpen (Bkc)) 0 unit SC ACHS [facility]; Protocol Last Admin: 10/07/18 07:06 Dose: Not Given Labetalol HCl (Trandate) 10 mg IV Q4H PRN PRN PRN Reason: SBP>180 mmhg/HR>120 Last Admin: 10/06/18 05:01 Dose: 10 mg Metoprolol Tartrate (Lopressor (Beta Keanu)) 100 mg PO BID [facility] Last Admin: 10/07/18 07:57 Dose: 100 mg Sertraline HCl (Zoloft) 100 mg PO DAILY [facility] Last Admin: 10/07/18 07:57 Dose: 100 mg Sodium Bicarbonate (Sodium Bicarbonate) 1,300 mg PO TID [facility] Last Admin: 10/07/18 07:05 Dose: 1,300 mg Sodium Chloride () 5 - 15 ml IV UD PRN PRN Reason: SALINE FLUSH Last Admin: 10/06/18 10:27 Dose: 10 ml Throat Lozenges (Cepacol Sore Throat Lozenge) 2 lozenge MUCOUS MEM Q2H PRN PRN PRN Reason: SORE THROAT Tolterodine Tartrate (Detrol La) 4 mg PO DAILY [facility] Last Admin: 10/07/18 07:56 Dose: 4 mg Medical Necessity - Tobacco Use Smoking Status: Never smoker Tobacco Use: Non-smoker Assessment/Plan All Active Problems (Last Reviewed 07/11/18 @ 14:55 by Dede Kasper) Atrial fibrillation (Acute) DKA (diabetic ketoacidoses) (Acute) Renal insufficiency (Acute) Hypertriglyceridemia (Acute) Abnormal mammogram of right breast (Acute) 68-year-old female admitted with a complaint of generalized malaise and weakness found to be in A. fib with RVR, DKA and having severe CRISTIAN. 1. Afib with RVR * now off amiodarone drip; on PO amiodarone and metoprolol. TO have PO amiodarone 200mg tid till Tuesday, then switch to amiodarone 200mg bid. * cardiology on board * 2D echo showed: EF of 75%, with moderately enlarged left atrium and normal right atrium; mild mitral valve stenosis, estimated RVSP of 48mmHg; mild aortic stenosis. * cardiology on board * on heparin drip. * for stress test and further workup once acute illness phase is over * CHADVASC scdore now 4, since stroke has been ruled out per neurology * per cardiology, to have stress test and further workup once acute illness is over. * currently on heparin drip. * 2. Acute hypoxic respiratory failure due to pneumonia * now down to 2-3L of oxygen. Still tachypneic, breathing in mid 20s * Chest CT showed bilateral airspace disease, worse in right hemithorax, with a small right pleural effusion. * will broaden IV antibiotics from ceftriaxone to IV zosyn. * pulmonology on board * BIPAP prn and titrate oxygen to maintain sats>90% * 3. DKA * resolved. * A1C was 9.8 * on insulin 10IU qhs; hold metformin, januvia and glimepiride for now * accuchecks ACHS; ISS * 4. CRISTIAN * Cr was 5.31 on admisison, is now down to 2.20 * FeNA was 1%, indicating pre-renal cause * renal USG was unremarkable * CPK was WNL * IVF stopped. * nephrology on board * * 5. Sepsis due to UTI and pneumonia * antibiotics broadened to IV zosyn. * urine cultured E. coli, sensitive to ceftriaxone * blood cultures showed no growth in 48 hours * 6. Hyperkalemia and nonanion gap metabolic acidosis * potassium is down to 4.1 today * bicarb up to 21; started on oral sodium bicarbonate per nephrology yesterday. * 7. Acute ischemic CVA * NIHSS- 1 on admission * CT brain showed lacunar infarct in insular cortex of right temporal lobe and decreased attenuation in the posterior right temporal parietal lobe; subacute ischemia should be ruled out * MRI showed suspicition for 2.9mm actue lacunar infarct in right centrum semiovale * discussed with neurology: per Dr Thorpe, this is due to an over read of the imaging, he doesnt think patient had a stroke, per his review of imaging. * MRA of neck was normal, and MRA of head was also normal except for dominant right vertebral artery * on high intensity statin and aspirin * PT/OT on board * * 8. Hyponatremia: * resolved * 9. Hypertension: * fairly well controlled. * on PO metoprolol. Losartan still held o/a of CRISTIAN * IV hydralazine prn. 10. Urinary retention: On oxybutynin. DVT prophylaxis:on heparin drip Code Visit Inpatient E&M: [id number] [place] [id number]
[2018-10-07] MEDS: Insulin Lispro 100 UNIT/ML INSULN.PEN SC ×3 (11:51→22:03)
[2018-10-07 12:08] LABS: Partial Thromboplast Time 68.6 Seconds (24.1-36.2)
[2018-10-07 12:15] LABS: Bedside Glucose 244 mg/dL (70-110)
--- NOTE | 2018-10-07 12:39 | PCM.PN.CARD ---
Subjectve: Denies any complaints today. Wishes to go home soon Objective: Vital Signs Temp Pulse Resp BP Pulse Ox 98.1 F 73 24 H 142/67 H 96 10/07/18 06:55 10/07/18 07:57 10/07/18 06:55 10/07/18 06:55 10/07/18 09:22 Oxygen Flow Rate (L/min) 2.5 Oxygen Delivery Method Nasal Cannula Weight: 109.4 kg Body Mass Index (BMI) 40.6 Finger Stick Blood Glucose 158 Intake and Output for Last 24 Hours 10/05/18 10/06/18 10/07/18 23:59 23:59 23:59 Intake Total 2324 / 2324 1059 / 1059 326.1 / 326.1 Output Total 1350 / 1350 1700 / 1700 700 / 700 Balance 974 / 974 -641 / -641 -373.9 / -373.9 General: Awake, Alert, Oriented x 3 HEENT: Atraumatic Oral: Moist Mucosa Neck: Supple Lungs: Diminished [place] Bases Cardiovascular: Regular Rhythm, Normal S1, Normal S2 Extremities: - - Bilateral SCDs in place 10/06/18 16:28: APTT 57.5 H 10/06/18 22:18: APTT 54.9 H 10/07/18 05:40: WBC 10.0, RBC 3.74 L, Hgb 9.4 L, Hct 28.7 L, MCV 76.7 L, MCH 25.1 L, MCHC 32.8, RDW 17.2 H, RDW Differential 45.6 H, Plt Count 200, MPV 10.5, Immature Gran % (Auto) 1.800 H, Neut % (Auto) 78.4 H, Lymph % (Auto) 9.7 L, [place] % (Auto) 7.7, Eos % (Auto) 2.2, Baso % (Auto) 0.2, Absolute Neuts (auto) 7.8 H, Total Counted Not Reportable 10/07/18 05:40: Sodium 142, Potassium 4.1, Chloride 112 H, Carbon Dioxide 21.0, Anion Gap 9, BUN 60 H, Creatinine 2.20 H, Est GFR (MDRD) Af Amer 29 L, Est GFR (MDRD) Non-Af 24 L, BUN/Creatinine Ratio 27.3 H, Glucose 145 H, Calcium 8.7 10/07/18 05:40: APTT 64.7 H 10/07/18 11:45: APTT 68.6 H Rhythm: EKG: ECHO: Stress Test: Cardiac Cath: PCI: CT Surgery: Holter monitor: EPS: PPM: CXR: Chest CT Scan: Medical Necessity - Tobacco Use Smoking Status: Never smoker Tobacco Use: Non-smoker Assessment/Plan 1. Atrial fibrillation. Converted to normal sinus rhythm. On amiodarone and metoprolol. On heparin. Will start on warfarin. Recommend INR between 2-3. Dose as per internal medicine. Discontinue heparin when INR 2. 2. Pneumonia. On antibiotics. 3. DKA. Resolved. 4. Acute kidney injury. 5. Obesity.
[2018-10-07 16:31] LABS: Bedside Glucose 218 mg/dL (70-110)
[2018-10-07 17:04] LABS: International Normalized Ratio 1.3; Prothrombin Time (Protime)PT. 15.8 SECONDS (11.7-14.9)
--- NOTE | 2018-10-07 20:43 | CPS ---
Patient's home CPAP set-up @ bedside. Water was not put in, via patient's request. She doesn't want the humidifier on. Machine and mask at reach. Patient will tell RN if any problems occur so RT can come troubleshoot machine.
[2018-10-07] MEDS: HEPARIN/D5w 25,000 UNITS 25,000 UNITS/250 ML IV.SOLN. 15 UNITS IV (22:02)
[2018-10-07] MEDS: Atorvastatin Calcium 40 MG Tablet PO (22:02)
[2018-10-07 22:15] LABS: Bedside Glucose 189 mg/dL (70-110)
[2018-10-08] VITALS (17 sets, daily range): BP systolic 143–175; BP diastolic 65–86; PULSE 67–80; RESP 18–20; TEMP 36.6–37.1; O2SAT 92–96
[2018-10-08 06:23] LABS: Absolute Lymphocyte Count 1.13 X10^3/ul (0.83-4.51); Absolute Neutrophil Count 8.4 X10^3/uL (2.0-7.7); Basophil# 0.02 X10^3/uL; Basophil% 0.2 % (0-1); Eosinophil# 0.29 X10^3/uL; Eosinophils% 2.7 % (0-5); Hemoglobin 9.1 g/dl (12.0-15.0); Lymphocyte # 1.13 X10^3/ul (4.0); Lymphocyte % 10.7 % (19-41); Mean Corp Hgb Conc 32.5 g/gl (32-36); Mean Corpuscular Hgb 25.3 pg (27.0-32.0); Mean Corpuscular Volume 77.8 fL (81-99); Mean Platelet Vol. 9.6 fl (6.2-12.0); Monocyte# 0.64 X10^3/uL; Neutrophil # 8.36 X10^3/uL (2.7-7.7); Platelet Count 216 K/mm3 (150-450); RBC Distribution Width CV 17.2 % (11.6-14.6); RBC Distribution Width SD 49.4 fl (35.1-43.9); White Blood Count 10.6 K/mm3 (4.4-11.0)
[2018-10-08 06:27] LABS: International Normalized Ratio 1.4; Prothrombin Time (Protime)PT. 17.4 SECONDS (11.7-14.9)
[2018-10-08 06:28] LABS: POSITIVE COUNT NO; POSITIVE DIFFERENTIAL NO; POSITIVE MORPHOLOGY NO
[2018-10-08 06:29] LABS: Partial Thromboplast Time 77.6 Seconds (24.1-36.2)
[2018-10-08 06:40] LABS: Anion Gap 8 (5-15); BUN 47 mg/dL (7-18); BUN/Creat Ratio 27.5 RATIO (10-20); Calcium,Total 8.4 mg/dL (8.5-10.1); Chloride 112 mmol/L (98-107); Creatinine, Serum 1.71 mg/dL (0.55-1.02); EST Glomerular Filtration Rate 32 mL/min (>60); Est Glom Filt Rate - Afr Amer 38 mL/min (>60); Estimated Creatinine Clearance 26.77 ml/min; Glucose 193 mg/dL (74-106); Potassium 4.1 mmol/L (3.5-5.1); Sodium Level 142 mmol/L (136-145)
[2018-10-08] MEDS: Insulin Lispro 100 UNIT/ML INSULN.PEN SC ×4 (06:45→22:20)
[2018-10-08] MEDS: Sodium Bicarbonate 650 MG Tablet 1300 MG PO ×2 (06:45→14:59)
[2018-10-08] MEDS: Amiodarone 200 MG Tablet PO ×3 (06:45→22:20)
[2018-10-08] MEDS: hydrALAZINE 50 MG Tablet PO ×3 (06:45→22:20)
[2018-10-08 06:56] LABS: Bedside Glucose 177 mg/dL (70-110)
--- NOTE | 2018-10-08 07:49 | CPS ---
DOING WELL WITH PEP ON OWN
--- NOTE | 2018-10-08 08:09 | PN_ITS ---
Patient Problems: Active and Suspected Problems (Last Reviewed 07/11/18 @ 14:55 by Dede Kasper) Atrial fibrillation (Acute) CVA (cerebral vascular accident) (Suspected) DKA (diabetic ketoacidoses) (Acute) Renal insufficiency (Acute) Hypertriglyceridemia (Acute) Subjective: The patient was seen and examined at the bedside this morning. Events from the last 24 hours have been reviewed. The patient is currently afebrile, hemodynamically stable and maintaining appropriate oxygen saturations on 2 L/min via nasal cannula. The patient continues to be compliant with the use of nocturnal CPAP therapy. Objective: The patient's most recent lab work, culture data and imaging studies have all been personally reviewed. Strep and urine Legionella antigens were both negative. Blood cultures have shown no growth to date. Urine culture was positive for E. coli. - Physical Exam General: Alert, Cooperative, No apparent distress HEENT: Atraumatic, PERRLA, Normocephalic Oral: No Gingival or Mucosal Lesions/ Ulcerations Neck: Supple, No Nodes, Trachea Midline Lungs: No rhonchi, No wheeze, No rales, Diminished Cardiovascular: Normal S1, Normal S2, No murmurs, Irregular Rate Abdomen: Bowel Sounds Present, Soft, Non Tender, Obese Extremities: No clubbing, No cyanosis, No edema Skin: - - No significant change from previous Musculoskeletal: No Tenderness to Palpation of Joints or Extremities, No Muscle Wasting Lymphatic: No Cervical, Supraclavicular, or Inguinal Adenopathy Neurological: Cranial nerves II-XII grossly intact, Neuro grossly intact Psych/Mental Status: Normal Affect, Appropriate Vital Signs Temp Pulse Resp BP Pulse Ox 98.7 F 77 20 H 169/86 H 93 10/08/18 03:30 10/08/18 07:51 10/08/18 03:32 10/08/18 06:45 10/08/18 06:42 Oxygen Flow Rate (L/min) 2 Oxygen Delivery Method Nasal Cannula Weight: 241 lb 10.026 oz Body Mass Index (BMI) 40.6 Finger Stick Blood Glucose 158 Intake and Output for Last 24 Hours 10/06/18 10/07/18 10/08/18 23:59 23:59 23:59 Intake Total 1059 / 1059 2650.5 / 2650.5 232.1 / 232.1 Output Total 1700 / 1700 1650 / 1650 500 / 500 Balance -641 / -641 1000.5 / 1000.5 -267.9 / -267.9 Microbiology Past 72 Hours 10/06/18 20:00 Streptococcus pneumoniae Antigen (M - Final Urine, Random 10/06/18 20:00 Legionella Antigen - Final Urine, Random 10/03/18 18:31 Blood Culture - Preliminary Blood Culture (Wb) - Right Hand No growth in 48 hours. 10/03/18 18:20 Blood Culture - Preliminary Blood Culture (Wb) - Right Wrist No growth in 48 hours. 10/03/18 21:15 Urine Culture - Final Urine Catheter - Catheter Escherichia coli Laboratory Tests Past 24 Hrs 10/07/18 10/07/18 10/08/18 11:45 11:45 05:55 WBC 10.6 RBC 3.60 L Hgb 9.1 L Hct 28.0 L MCV 77.8 L MCH 25.3 L MCHC 32.5 RDW 17.2 H RDW Differential 49.4 H Plt Count 216 MPV 9.6 Immature Gran % (Auto) 1.400 H Neut % (Auto) 79.0 H Lymph % (Auto) 10.7 L Porter % (Auto) 6.0 Eos % (Auto) 2.7 Baso % (Auto) 0.2 Absolute Neuts (auto) 8.4 H Absolute Lymphs (auto) 1.13 Total Counted Not Reportable PT 15.8 H INR 1.3 APTT 68.6 H Sodium Potassium Chloride Carbon Dioxide Anion Gap BUN Creatinine Estim Creat Clear Calc Est GFR (MDRD) Af Amer Est GFR (MDRD) Non-Af BUN/Creatinine Ratio Glucose Calcium 10/08/18 10/08/18 05:55 05:55 WBC RBC Hgb Hct MCV MCH MCHC RDW RDW Differential Plt Count MPV Immature Gran % (Auto) Neut % (Auto) Lymph % (Auto) Porter % (Auto) Eos % (Auto) Baso % (Auto) Absolute Neuts (auto) Absolute Lymphs (auto) Total Counted PT 17.4 H INR 1.4 APTT 77.6 H Sodium 142 Potassium 4.1 Chloride 112 H Carbon Dioxide 22.0 Anion Gap 8 BUN 47 H Creatinine 1.71 H Estim Creat Clear Calc 26.77 Est GFR (MDRD) Af Amer 38 L Est GFR (MDRD) Non-Af 32 L BUN/Creatinine Ratio 27.5 H Glucose 193 H Calcium 8.4 L POC Glucose 10/08/18 10/07/18 10/07/18 06:44 21:59 16:24 POC Glucose 177 H 189 H 218 H 10/07/18 11:49 POC Glucose 244 H Clinical Impression(s) from Imaging Studies Brain CT 10/03/18 14:45 IMPRESSION: Findings suggestive of a lacunar infarct in the insular cortex of the right temporal lobe. Decreased attenuation in the posterior right temporal parietal lobe. Subacute ischemia should BE ruled out. Electronically Signed: Jordan Jones, at 15:09 EDT , Service support , Renal Ultrasound 10/03/18 17:59 IMPRESSION: Normal ultrasound of the kidneys. Electronically Signed: Sridhar Marinelli DO at 23:20 EDT Tel [phone], Service support , Chest X-Ray 10/03/18 20:52 IMPRESSION: No acute cardiopulmonary disease. Electronically Signed: Sridhar Marinelli DO at 23:19 EDT Tel [phone], Service support , Brain MRI 10/04/18 08:30 IMPRESSION: Suspicion of a 2.9 mm acute lacunar infarction within the right centrum semiovale Electronically Signed: Raffy Pineda MD at 2:17 EDT Tel , Service support , Head MRA 10/04/18 08:30 IMPRESSION: Normal MRA of the head except for a dominant right vertebral artery Electronically Signed: Raffy Pineda MD at 2:21 EDT Tel , Service support , Neck MRA 10/04/18 08:30 IMPRESSION: Normal bilateral cervical carotid and vertebral arteries. Electronically Signed: Raffy Pineda MD at 2:19 EDT Tel , Service support , Cervical Spine MRI 10/05/18 13:05 IMPRESSION: No abnormal cervical cord signal Slightly increased T3-4 intervertebral disc disease with mild ventral cord flattening Stable C3-C7 anterior surgical fixation with endplate fusion Stable multilevel posterior osseous ridging with mild central canal narrowing Stable multilevel severe neural foraminal narrowing Stable osseous degenerative changes Electronically Signed: Wale Bee DO at 11:40 EDT Tel , Service support , Chest X-Ray 10/05/18 13:51 IMPRESSION: Multifocal airspace opacities predominating at the right perihilar region (suspected asymmetric pulmonary edema versus less likely infection) Mild cardiomegaly Degenerative/postsurgical changes, as above Electronically Signed: Wale Bee DO at 14:32 EDT Tel , Service support , Lumbar Spine MRI 10/05/18 13:52 IMPRESSION: No acute fracture or dislocation Extensive multilevel intervertebral disc disease without significant central canal narrowing Multilevel neural foraminal narrowing with impingement of the right L2, right L3 and bilateral L4 nerve roots Slightly exaggerated lumbar lordosis with minimal levoscoliosis Multilevel osseous degenerative changes with multilevel laminectomies Electronically Signed: Wale Bee DO at 11:51 EDT Tel , Service support , Chest CT 10/06/18 07:38 IMPRESSION: Bilateral airspace disease worse in the right hemithorax with a small right pleural effusion. Electronically Signed: Jordan Jones, at 9:28 EDT , Service support , Medical Necessity - Tobacco Use Smoking Status: Never smoker Tobacco Use: Non-smoker Assessment/Plan All Active Problems (Last Reviewed 07/11/18 @ 14:55 by Dede Kasper) Atrial fibrillation (Acute) DKA (diabetic ketoacidoses) (Acute) Renal insufficiency (Acute) Hypertriglyceridemia (Acute) Abnormal mammogram of right breast (Acute) RECOMMENDATIONS: 1. Continue Zosyn as ordered. If the patient decompensates, recommend adding vancomycin, given positive MRSA screen. 2. Encourage chest physiotherapy with PEP and IS. 3. Wean supplemental oxygen to maintain saturations at or above 90%. 4. Continue nocturnal CPAP therapy per home regimen. 5. Defer management of atrial fibrillation/hypertension to cardiology. IMPRESSIONS: 1. Acute hypoxemic respiratory failure secondary to multifocal pneumonia The patient's chest CT from this morning was personally reviewed and did reveal evidence of multifocal airspace disease most pronounced throughout the right hemithorax with mild residual disease noted in the left base. The patient was placed on broad-spectrum antimicrobials and appears to be improving clinically. Of note, she did have a positive MRSA screen. Therefore, if the patient were to begin to decompensate, would recommend adding vancomycin at that time. If the patient does begin to produce sputum, please send for culture. Continue to wean supplemental oxygen to maintain saturations at or above 90%. Continue chest physiotherapy with PEP and IS. 2. E. coli cystitis Continue antibiotic coverage as noted above. 3. Acute ischemic CVA Continue current medical management per neurology recommendations. 4. New onset atrial fibrillation with RVR/hypertension Cardiology is following to assist with medical management. 5. Acute kidney injury Improving. Likely prerenal in etiology. Responded to volume resuscitation. Continue to monitor urine output. No indication for renal replacement therapy. 6. Personal history of obstructive sleep apnea Continue nocturnal CPAP therapy per home regimen. The patient regularly follows with Dr. Raymond. 7. Microcytic anemia/diabetes mellitus/depression/hypertension/h yperlipidemia/obesity Complicates care, management, recovery and prognosis. Physical therapy to continue to work with the patient. This note was generated with [employer] dictation software. It may contain incorrect words, spelling, and punctuation that were not noted in checking the note before signing. Code Visit Inpatient E&M: 43317 Subs Hosp L2
[2018-10-08] MEDS: Aspirin 81 MG TAB.CHEW PO (09:31)
[2018-10-08] MEDS: Metoprolol Tartrate 100 MG Tablet PO ×2 (09:32→22:21)
[2018-10-08] MEDS: Tolterodine Tartrate 4 MG CAP.SA PO (09:32)
[2018-10-08] MEDS: Sertraline 100 MG Tablet PO (09:33)
--- NOTE | 2018-10-08 11:24 | PCM.PN.NEU ---
Patient Problems: Active and Suspected Problems (Last Reviewed 07/11/18 @ 14:55 by Dede Kasper) Atrial fibrillation (Acute) CVA (cerebral vascular accident) (Suspected) DKA (diabetic ketoacidoses) (Acute) Renal insufficiency (Acute) Hypertriglyceridemia (Acute) Subjective: No issues overnight. Care discussed with the hospitalist taking care of the patient. Creatinine improving. Labs reviewed - Physical Exam General: Alert HEENT: Normocephalic Neck: Supple Lungs: Normal air movement Cardiovascular: Normal S1, Normal S2 Abdomen: Bowel Sounds Present Extremities: No cyanosis Neurological: - - Conscious, alert, CN?2-12 grossly intact, power 5 x 5 in both upper extremities and lower extremities, no sensory loss, no cerebellar signs, no speech disturbances at present, gait deferred, reflexes + B/L B/S/T/K/A, NIHSS 0 at present, mRS 2 at baseline Psych/Mental Status: Normal Affect Vital Signs Temp Pulse Resp BP Pulse Ox 97.9 F 78 18 145/78 H 95 10/08/18 09:30 10/08/18 09:32 10/08/18 09:30 10/08/18 09:30 10/08/18 09:30 Oxygen Flow Rate (L/min) 2 Oxygen Delivery Method Room Air Weight: 109.6 kg Body Mass Index (BMI) 40.6 Finger Stick Blood Glucose 158 Intake and Output for Last 24 Hours 10/06/18 10/07/18 10/08/18 23:59 23:59 23:59 Intake Total 1059 / 1059 2650.5 / 2650.5 712.1 / 712.1 Output Total 1700 / 1700 1650 / 1650 500 / 500 Balance -641 / -641 1000.5 / 1000.5 212.1 / 212.1 Microbiology Past 72 Hours 10/06/18 20:00 Streptococcus pneumoniae Antigen (M - Final Urine, Random 10/06/18 20:00 Legionella Antigen - Final Urine, Random 10/03/18 18:31 Blood Culture - Preliminary Blood Culture (Wb) - Right Hand No growth in 48 hours. 10/03/18 18:20 Blood Culture - Preliminary Blood Culture (Wb) - Right Wrist No growth in 48 hours. 10/03/18 21:15 Urine Culture - Final Urine Catheter - Catheter Escherichia coli Laboratory Tests Past 24 Hrs 10/07/18 10/07/18 10/08/18 11:45 11:45 05:55 WBC 10.6 RBC 3.60 L Hgb 9.1 L Hct 28.0 L MCV 77.8 L MCH 25.3 L MCHC 32.5 RDW 17.2 H RDW Differential 49.4 H Plt Count 216 MPV 9.6 Immature Gran % (Auto) 1.400 H Neut % (Auto) 79.0 H Lymph % (Auto) 10.7 L [place] % (Auto) 6.0 Eos % (Auto) 2.7 Baso % (Auto) 0.2 Absolute Neuts (auto) 8.4 H Absolute Lymphs (auto) 1.13 Total Counted Not Reportable PT 15.8 H INR 1.3 APTT 68.6 H Sodium Potassium Chloride Carbon Dioxide Anion Gap BUN Creatinine Estim Creat Clear Calc Est GFR (MDRD) Af Amer Est GFR (MDRD) Non-Af BUN/Creatinine Ratio Glucose Calcium 10/08/18 10/08/18 05:55 05:55 WBC RBC Hgb Hct MCV MCH MCHC RDW RDW Differential Plt Count MPV Immature Gran % (Auto) Neut % (Auto) Lymph % (Auto) [place]ven % (Auto) Eos % (Auto) Baso % (Auto) Absolute Neuts (auto) Absolute Lymphs (auto) Total Counted PT 17.4 H INR 1.4 APTT 77.6 H Sodium 142 Potassium 4.1 Chloride 112 H Carbon Dioxide 22.0 Anion Gap 8 BUN 47 H Creatinine 1.71 H Estim Creat Clear Calc 26.77 Est GFR (MDRD) Af Amer 38 L Est GFR (MDRD) Non-Af 32 L BUN/Creatinine Ratio 27.5 H Glucose 193 H Calcium 8.4 L POC Glucose 10/08/18 10/07/18 10/07/18 06:44 21:59 16:24 POC Glucose 177 H 189 H 218 H 10/07/18 11:49 POC Glucose 244 H Medical Necessity - Tobacco Use Smoking Status: Never smoker Tobacco Use: Non-smoker Assessment/Plan All Active Problems (Last Reviewed 07/11/18 @ 14:55 by Dede Kasper) Atrial fibrillation (Acute) DKA (diabetic ketoacidoses) (Acute) Renal insufficiency (Acute) Hypertriglyceridemia (Acute) Abnormal mammogram of right breast (Acute) The patient is a 68 year old F with PMH HTN, HLD, DM, history of cervical and lumbar surgery, history of cervical and lumbar spinal stenosis, LEIGH ANN on CPAP, depression admitted with generalized malaise. Neurology consulted for possible stroke. At present patient denies any headache, dizziness, speech disturbances, visual disturbances, focal motor weakness or sensory loss. She does complain of chronic neck pain and low back pain. Denies any radicular symptoms. Per patient she lives alone, denies any frequent falls but has been having few falls lately as her legs would give away, does drive, uses cane or walker to ambulate, and does need assistance for her ADLs. Per patient she was taking aspirin at baseline but has not been taking it for the past few days. History is also obtained from medical records and documentation. Per ED documentation on admission NIHSS was 1, CT head done on admission reported to show findings suggestive of lacunar infarct in the insular cortex of the right temporal lobe and decreased attenuation in the posterior right temporal lobe, subacute ischemia should be ruled out. On admission she was found to be in A. fib with RVR, labs showed sodium 129, creatinine 5.31, glucose was 421, WBC 14, UA showed LE positive, nitrite positive and was turbid Impression Possible very small Right [employer] (Right MCA) stroke Possible metabolic encephalopathy-DKA, CRISTIAN, sepsis secondary to UTI New onset A. fib Cervical stenosis and lumbar foraminal stenosis Plan ?MRI brain without contrast-reported as suspicion of a 2.9 mm acute lacunar infarction within the right centrum semiovale -MRA head/neck- reported no hemodynamically significant stenosis or occlusion ?MRI C-spine without contrast- No abnormal cervical cord signal. Slightly increased T3-4 intervertebral disc disease with mild ventral cord flattening. Stable C3-C7 anterior surgical fixation with endplate fusion. Stable multilevel posterior osseous ridging with mild central canal narrowing. Stable multilevel severe neural foraminal narrowing. Stable osseous degenerative changes -MRI L-spine without contrast-No acute fracture or dislocation. Extensive multilevel intervertebral disc disease without significant central canal narrowing. Multilevel neural foraminal narrowing with impingement of the right L2, right L3 and bilateral L4 nerve roots. Slightly exaggerated lumbar lordosis with minimal levoscoliosis. Multilevel osseous degenerative changes with multilevel laminectomies -Spine surgery consult ?On Lipitor. [id number] VASc score atleast 5. Will need to be on AC with Eliquis once renal function improves. On Heparin drip at present. Avoid bolus. Bleeding risks discussed. ?TTE-EF 75%, LA moderately enlarged -LDL-test not performed due to high triglycerides of 508, [id number] ?Stroke risk factors discussed and stroke education provided ?Goal BP less than 130/80 mmHg and HbA1c less than 7% ?PT/OT/ST ?GI/DVT prophylaxis ?Fall precautions ?Further medical management per hospitalist team ?Follow-up with neurology as outpatient in 4 weeks ?Please call with questions if any ?Thank you for allowing us to part spent in patient's care management
--- NOTE | 2018-10-08 11:42 | PCM.PN.HOSP ---
Patient Problems: Active and Suspected Problems (Last Reviewed 07/11/18 @ 14:55 by Dede Kasper) Atrial fibrillation (Acute) CVA (cerebral vascular accident) (Suspected) DKA (diabetic ketoacidoses) (Acute) Renal insufficiency (Acute) Hypertriglyceridemia (Acute) Subjective: Patient seen and examined. She feels well and has no complaints. Shortness of breath has improved significantly and she is now just on 1 L of oxygen. Review of systems otherwise negative. Labs and vitals reviewed. Vitals/I&O's: Vital Signs Temp Pulse Resp BP Pulse Ox 97.9 F 78 18 145/78 H 96 10/08/18 09:30 10/08/18 09:32 10/08/18 09:30 10/08/18 09:30 10/08/18 11:28 Oxygen Flow Rate (L/min) 2 Oxygen Delivery Method Room Air Weight: 241 lb 10.026 oz Body Mass Index (BMI) 40.6 Finger Stick Blood Glucose 158 Intake and Output for Last 24 Hours 10/06/18 10/07/18 10/08/18 23:59 23:59 23:59 Intake Total 1059 / 1059 2650.5 / 2650.5 712.1 / 712.1 Output Total 1700 / 1700 1650 / 1650 500 / 500 Balance -641 / -641 1000.5 / 1000.5 212.1 / 212.1 General: Alert, Cooperative HEENT: Atraumatic, PERRLA, Normocephalic Oral: No Gingival or Mucosal Lesions/ Ulcerations Neck: Supple, No Nodes, Trachea Midline Lungs: No rhonchi, No wheeze, Diminished, Tachypneic, on 1L of oxygen by nasal canula Cardiovascular: Normal S1, Normal S2, No murmurs, Abdomen: Bowel Sounds Present, Soft, Non Tender, Obese Extremities: No clubbing, No cyanosis, No edema Skin: - -no rash or ulcerations Musculoskeletal: No Tenderness to Palpation of Joints or Extremities Lymphatic: No Cervical, Supraclavicular, or Inguinal Adenopathy Neurological: Neuro grossly intact Psych/Mental Status: Normal Affect, Appropriate Microbiology Past 72 Hours 10/06/18 20:00 Urine, Random Streptococcus pneumoniae Antigen (M - Final 10/06/18 20:00 Urine, Random Legionella Antigen - Final 10/03/18 18:31 Blood Culture (Wb) - Right Hand Blood Culture - Preliminary No growth in 48 hours. 10/03/18 18:20 Blood Culture (Wb) - Right Wrist Blood Culture - Preliminary No growth in 48 hours. 10/03/18 21:15 Urine Catheter - Catheter Urine Culture - Final Escherichia coli Laboratory Results 10/07/18 11:45: APTT 68.6 H 10/07/18 11:45: PT 15.8 H, INR 1.3 10/07/18 11:49: POC Glucose 244 H 10/07/18 16:24: POC Glucose 218 H 10/07/18 21:59: POC Glucose 189 H 10/08/18 05:55: WBC 10.6, RBC 3.60 L, Hgb 9.1 L, Hct 28.0 L, MCV 77.8 L, MCH 25.3 L, MCHC 32.5, RDW 17.2 H, RDW Differential 49.4 H, Plt Count 216, MPV 9.6, Immature Gran % (Auto) 1.400 H, Neut % (Auto) 79.0 H, Lymph % (Auto) 10.7 L, [place] % (Auto) 6.0, Eos % (Auto) 2.7, Baso % (Auto) 0.2, Absolute Neuts (auto) 8.4 H, Absolute Lymphs (auto) 1.13, Total Counted Not Reportable 10/08/18 05:55: Sodium 142, Potassium 4.1, Chloride 112 H, Carbon Dioxide 22.0, Anion Gap 8, BUN 47 H, Creatinine 1.71 H, Estim Creat Clear Calc 26.77, Est GFR (MDRD) Af Amer 38 L, Est GFR (MDRD) Non-Af 32 L, BUN/Creatinine Ratio 27.5 H, Glucose 193 H, Calcium 8.4 L 10/08/18 05:55: PT 17.4 H, INR 1.4, APTT 77.6 H 10/08/18 06:44: POC Glucose 177 H Current Medications Acetaminophen (Tylenol) 500 mg PO Q6H PRN PRN PRN Reason: PAIN Last Admin: 10/07/18 07:54 Dose: 500 mg Amiodarone HCl (Cordarone) 200 mg PO TID ROSALIND Last Admin: 10/08/18 06:45 Dose: 200 mg Apixaban (Eliquis) 5 mg PO BID [facility] Aspirin (Aspirin, Baby) 81 mg PO DAILY@0800 [facility] Last Admin: 10/08/18 09:31 Dose: 81 mg Atorvastatin Calcium (Lipitor) 40 mg PO QHS [facility] Last Admin: 10/07/18 22:02 Dose: 40 mg Cyclobenzaprine HCl (Cyclobenzaprine Hcl) 5 mg PO TID PRN PRN PRN Reason: SPASMS Dextrose (D50w Syringe) 0 gm IV X1 PRN; Protocol PRN Reason: Hypoglycemia Glucagon () 1 mg IM .X1 PRN PRN Reason: Hypoglycemia Hydralazine HCl (Apresoline Iv) 10 mg IV Q6H PRN PRN PRN Reason: BLOOD PRESSURE ELEVATION Last Admin: 10/06/18 10:13 Dose: 10 mg Hydralazine HCl (Apresoline) 50 mg PO TID [facility] Last Admin: 10/08/18 06:45 Dose: 50 mg Sodium Chloride () 250 mls @ 15 mls/hr IV .[id number] PRN PRN Reason: SALINE FLUSH Sodium Chloride () 500 mls @ 15 mls/hr IV .[id number] PRN PRN Reason: SALINE FLUSH Piperacillin Sod/Tazobactam (Sod 3.375 gm/ Sodium Chloride) 50 mls @ 12.5 mls/hr IV Q12 [facility] Last Admin: 10/08/18 09:33 Dose: 12.5 mls/hr Insulin Glargine (Lantus (Bkc)) 10 units SC DAILY [facility] Last Admin: 10/08/18 09:32 Dose: 10 u Insulin Human Lispro (Humalog Kwikpen (Bkc)) 0 unit SC ACHS [facility]; Protocol Last Admin: 10/08/18 10:51 Dose: 3 u Labetalol HCl (Trandate) 10 mg IV Q4H PRN PRN PRN Reason: SBP>180 mmhg/HR>120 Last Admin: 10/06/18 05:01 Dose: 10 mg Metoprolol Tartrate (Lopressor (Beta Keanu)) 100 mg PO BID [facility] Last Admin: 10/08/18 09:32 Dose: 100 mg Sertraline HCl (Zoloft) 100 mg PO DAILY [facility] Last Admin: 10/08/18 09:33 Dose: 100 mg Sodium Bicarbonate (Sodium Bicarbonate) 1,300 mg PO TID [facility] Last Admin: 10/08/18 06:45 Dose: 1,300 mg Sodium Chloride () 5 - 15 ml IV UD PRN PRN Reason: SALINE FLUSH Last Admin: 10/06/18 10:27 Dose: 10 ml Throat Lozenges (Cepacol Sore Throat Lozenge) 2 lozenge MUCOUS MEM Q2H PRN PRN PRN Reason: SORE THROAT Tolterodine Tartrate (Detrol La) 4 mg PO DAILY [facility] Last Admin: 10/08/18 09:32 Dose: 4 mg Medical Necessity - Tobacco Use Smoking Status: Never smoker Tobacco Use: Non-smoker Assessment/Plan All Active Problems (Last Reviewed 07/11/18 @ 14:55 by Dede Kasper) Atrial fibrillation (Acute) DKA (diabetic ketoacidoses) (Acute) Renal insufficiency (Acute) Hypertriglyceridemia (Acute) Abnormal mammogram of right breast (Acute) 68-year-old female admitted with a complaint of generalized malaise and weakness found to be in A. fib with RVR, DKA and having severe CRISTIAN. 1. Afib with RVR now off amiodarone drip; on PO amiodarone and metoprolol. TO have PO amiodarone 200mg tid till Tuesday, then switch to amiodarone 200mg bid. cardiology on board 2D echo showed: EF of 75%, with moderately enlarged left atrium and normal right atrium; mild mitral valve stenosis, estimated RVSP of 48mmHg; mild aortic stenosis. will switch from heparin drip to PO eliquis 5mg bid today. for stress test and further workup once acute illness phase is over CHADVASC scdore now 4, since stroke has been ruled out per neurology 2. Acute hypoxic respiratory failure due to pneumonia now down to 1L of oxygen. Still tachypneic, breathing in mid 20s Chest CT showed bilateral airspace disease, worse in right hemithorax, with a small right pleural effusion. will broaden IV antibiotics from ceftriaxone to IV zosyn. pulmonology on board BIPAP prn and titrate oxygen to maintain sats>90% 3. DKA resolved. A1C was 9.8 on insulin 10IU qhs; hold metformin, januvia and glimepiride for now accuchecks ACHS; ISS 4. CRISTIAN Cr was 5.31 on admisison, is now down to 1.71 FeNA was 1%, indicating pre-renal cause renal USG was unremarkable nephrology on board 5. Sepsis due to UTI and pneumonia on IV zosyn urine cultured E. coli, sensitive to ceftriaxone blood cultures showed no growth in 48 hours 6. Hyperkalemia and nonanion gap metabolic acidosis resolved. started on oral sodium bicarbonate per nephrology yesterday. 7. Acute ischemic CVA NIHSS- [address] brain showed lacunar infarct in insular cortex of right temporal lobe and decreased attenuation in the posterior right temporal parietal lobe; subacute ischemia should be ruled out MRI showed suspicition for 2.9mm actue lacunar infarct in right centrum semiovale discussed with neurology: per Dr Thorpe, this is due to an over read of the imaging, he doesnt think patient had a stroke, per his review of imaging. MRA of neck was normal, and MRA of head was also normal except for dominant right vertebral artery on high intensity statin and aspirin. Started on eliquis today PT/OT on board 8. Hyponatremia: resolved 9. Hypertension: fairly well controlled. on PO metoprolol. Losartan still held o/a of CRISTIAN IV hydralazine prn. 10. Urinary retention: On oxybutynin. DVT prophylaxis:on eliquis Code Visit Inpatient E&M: 84928 [facility] Hosp L3
--- NOTE | 2018-10-08 11:46 | PN_ITS ---
Patient Problems: Active and Suspected Problems (Last Reviewed 07/11/18 @ 14:55 by Dede Kasper) Atrial fibrillation (Acute) CVA (cerebral vascular accident) (Suspected) DKA (diabetic ketoacidoses) (Acute) Renal insufficiency (Acute) Hypertriglyceridemia (Acute) Subjective: Patient seen and examined. She feels well and has no complaints. Shortness of breath has improved significantly and she is now just on 1 L of oxygen. Review of systems otherwise negative. Labs and vitals reviewed. Vitals/I&O's: Vital Signs Temp Pulse Resp BP Pulse Ox 97.9 F 78 18 145/78 H 96 10/08/18 09:30 10/08/18 09:32 10/08/18 09:30 10/08/18 09:30 10/08/18 11:28 Oxygen Flow Rate (L/min) 2 Oxygen Delivery Method Room Air Weight: 241 lb 10.026 oz Body Mass Index (BMI) 40.6 Finger Stick Blood Glucose 158 Intake and Output for Last 24 Hours 10/06/18 10/07/18 10/08/18 23:59 23:59 23:59 Intake Total 1059 / 1059 2650.5 / 2650.5 712.1 / 712.1 Output Total 1700 / 1700 1650 / 1650 500 / 500 Balance -641 / -641 1000.5 / 1000.5 212.1 / 212.1 General: Alert, Cooperative HEENT: Atraumatic, PERRLA, Normocephalic Oral: No Gingival or Mucosal Lesions/ Ulcerations Neck: Supple, No Nodes, Trachea Midline Lungs: No rhonchi, No wheeze, Diminished, Tachypneic, on 1L of oxygen by nasal canula Cardiovascular: Normal S1, Normal S2, No murmurs, Abdomen: Bowel Sounds Present, Soft, Non Tender, Obese Extremities: No clubbing, No cyanosis, No edema Skin: - -no rash or ulcerations Musculoskeletal: No Tenderness to Palpation of Joints or Extremities Lymphatic: No Cervical, Supraclavicular, or Inguinal Adenopathy Neurological: Neuro grossly intact Psych/Mental Status: Normal Affect, Appropriate Microbiology Past 72 Hours 10/06/18 20:00 Urine, Random Streptococcus pneumoniae Antigen (M - Final 10/06/18 20:00 Urine, Random Legionella Antigen - Final 10/03/18 18:31 Blood Culture (Wb) - Right Hand Blood Culture - Preliminary No growth in 48 hours. 10/03/18 18:20 Blood Culture (Wb) - Right Wrist Blood Culture - Preliminary No growth in 48 hours. 10/03/18 21:15 Urine Catheter - Catheter Urine Culture - Final Escherichia coli Laboratory Results 10/07/18 11:45: APTT 68.6 H 10/07/18 11:45: PT 15.8 H, INR 1.3 10/07/18 11:49: POC Glucose 244 H 10/07/18 16:24: POC Glucose 218 H 10/07/18 21:59: POC Glucose 189 H 10/08/18 05:55: WBC 10.6, RBC 3.60 L, Hgb 9.1 L, Hct 28.0 L, MCV 77.8 L, MCH 25.3 L, MCHC 32.5, RDW 17.2 H, RDW Differential 49.4 H, Plt Count 216, MPV 9.6, Immature Gran % (Auto) 1.400 H, Neut % (Auto) 79.0 H, Lymph % (Auto) 10.7 L, Snyder % (Auto) 6.0, Eos % (Auto) 2.7, Baso % (Auto) 0.2, Absolute Neuts (auto) 8.4 H, Absolute Lymphs (auto) 1.13, Total Counted Not Reportable 10/08/18 05:55: Sodium 142, Potassium 4.1, Chloride 112 H, Carbon Dioxide 22.0, Anion Gap 8, BUN 47 H, Creatinine 1.71 H, Estim Creat Clear Calc 26.77, Est GFR (MDRD) Af Amer 38 L, Est GFR (MDRD) Non-Af 32 L, BUN/Creatinine Ratio 27.5 H, Glucose 193 H, Calcium 8.4 L 10/08/18 05:55: PT 17.4 H, INR 1.4, APTT 77.6 H 10/08/18 06:44: POC Glucose 177 H Current Medications Acetaminophen (Tylenol) 500 mg PO Q6H PRN PRN PRN Reason: PAIN Last Admin: 10/07/18 07:54 Dose: 500 mg Amiodarone HCl (Cordarone) 200 mg PO TID ROSALIND Last Admin: 10/08/18 06:45 Dose: 200 mg Apixaban (Eliquis) 5 mg PO BID [facility] Aspirin (Aspirin, Baby) 81 mg PO DAILY@0800 [facility] Last Admin: 10/08/18 09:31 Dose: 81 mg Atorvastatin Calcium (Lipitor) 40 mg PO QHS [facility] Last Admin: 10/07/18 22:02 Dose: 40 mg Cyclobenzaprine HCl (Cyclobenzaprine Hcl) 5 mg PO TID PRN PRN PRN Reason: SPASMS Dextrose (D50w Syringe) 0 gm IV X1 PRN; Protocol PRN Reason: Hypoglycemia Glucagon () 1 mg IM .X1 PRN PRN Reason: Hypoglycemia Hydralazine HCl (Apresoline Iv) 10 mg IV Q6H PRN PRN PRN Reason: BLOOD PRESSURE ELEVATION Last Admin: 10/06/18 10:13 Dose: 10 mg Hydralazine HCl (Apresoline) 50 mg PO TID [facility] Last Admin: 10/08/18 06:45 Dose: 50 mg Sodium Chloride () 250 mls @ 15 mls/hr IV .[id number] PRN PRN Reason: SALINE FLUSH Sodium Chloride () 500 mls @ 15 mls/hr IV .[id number] PRN PRN Reason: SALINE FLUSH Piperacillin Sod/Tazobactam (Sod 3.375 gm/ Sodium Chloride) 50 mls @ 12.5 mls/hr IV Q12 [facility] Last Admin: 10/08/18 09:33 Dose: 12.5 mls/hr Insulin Glargine (Lantus (Bkc)) 10 units SC DAILY [facility] Last Admin: 10/08/18 09:32 Dose: 10 u Insulin Human Lispro (Humalog Kwikpen (Bkc)) 0 unit SC ACHS [facility]; Protocol Last Admin: 10/08/18 10:51 Dose: 3 u Labetalol HCl (Trandate) 10 mg IV Q4H PRN PRN PRN Reason: SBP>180 mmhg/HR>120 Last Admin: 10/06/18 05:01 Dose: 10 mg Metoprolol Tartrate (Lopressor (Beta Keanu)) 100 mg PO BID [facility] Last Admin: 10/08/18 09:32 Dose: 100 mg Sertraline HCl (Zoloft) 100 mg PO DAILY [facility] Last Admin: 10/08/18 09:33 Dose: 100 mg Sodium Bicarbonate (Sodium Bicarbonate) 1,300 mg PO TID [facility] Last Admin: 10/08/18 06:45 Dose: 1,300 mg Sodium Chloride () 5 - 15 ml IV UD PRN PRN Reason: SALINE FLUSH Last Admin: 10/06/18 10:27 Dose: 10 ml Throat Lozenges (Cepacol Sore Throat Lozenge) 2 lozenge MUCOUS MEM Q2H PRN PRN PRN Reason: SORE THROAT Tolterodine Tartrate (Detrol La) 4 mg PO DAILY [facility] Last Admin: 10/08/18 09:32 Dose: 4 mg Medical Necessity - Tobacco Use Smoking Status: Never smoker Tobacco Use: Non-smoker Assessment/Plan All Active Problems (Last Reviewed 07/11/18 @ 14:55 by Dede Kasper) Atrial fibrillation (Acute) DKA (diabetic ketoacidoses) (Acute) Renal insufficiency (Acute) Hypertriglyceridemia (Acute) Abnormal mammogram of right breast (Acute) 68-year-old female admitted with a complaint of generalized malaise and weakness found to be in A. fib with RVR, DKA and having severe CRISTIAN. 1. Afib with RVR * now off amiodarone drip; on PO amiodarone and metoprolol. TO have PO amiodarone 200mg tid till Tuesday, then switch to amiodarone 200mg bid. * cardiology on board * 2D echo showed: EF of 75%, with moderately enlarged left atrium and normal right atrium; mild mitral valve stenosis, estimated RVSP of 48mmHg; mild aortic stenosis. * will switch from heparin drip to PO eliquis 5mg bid today. * for stress test and further workup once acute illness phase is over * CHADVASC scdore now 4, since stroke has been ruled out per neurology * 2. Acute hypoxic respiratory failure due to pneumonia * now down to 1L of oxygen. Still tachypneic, breathing in mid 20s * Chest CT showed bilateral airspace disease, worse in right hemithorax, with a small right pleural effusion. * will broaden IV antibiotics from ceftriaxone to IV zosyn. * pulmonology on board * BIPAP prn and titrate oxygen to maintain sats>90% * 3. DKA * resolved. * A1C was 9.8 * on insulin 10IU qhs; hold metformin, januvia and glimepiride for now * accuchecks ACHS; ISS * 4. CRISTIAN * Cr was 5.31 on admisison, is now down to 1.71 * FeNA was 1%, indicating pre-renal cause * renal USG was unremarkable * nephrology on board * * 5. Sepsis due to UTI and pneumonia * on IV zosyn * urine cultured E. coli, sensitive to ceftriaxone * blood cultures showed no growth in 48 hours * 6. Hyperkalemia and nonanion gap metabolic acidosis * resolved. * started on oral sodium bicarbonate per nephrology yesterday. * 7. Acute ischemic CVA * NIHSS- 1 on admission * CT brain showed lacunar infarct in insular cortex of right temporal lobe and decreased attenuation in the posterior right temporal parietal lobe; subacute ischemia should be ruled out * MRI showed suspicition for 2.9mm actue lacunar infarct in right centrum semiovale * discussed with neurology: per Dr Thorpe, this is due to an over read of the imaging, he doesnt think patient had a stroke, per his review of imaging. * MRA of neck was normal, and MRA of head was also normal except for dominant right vertebral artery * on high intensity statin and aspirin. Started on eliquis today * PT/OT on board * * 8. Hyponatremia: * resolved * 9. Hypertension: * fairly well controlled. * on PO metoprolol. Losartan still held o/a of CRISTIAN * IV hydralazine prn. 10. Urinary retention: On oxybutynin. DVT prophylaxis:on eliquis Code Visit Inpatient E&M: 94475 Subs Hosp L3
[2018-10-08 12:00] LABS: Bedside Glucose 260 mg/dL (70-110)
--- NOTE | 2018-10-08 15:05 | PCM.PN.REN ---
Patient Problems: Active and Suspected Problems (Last Reviewed 07/11/18 @ 14:55 by Dede Kasper) Atrial fibrillation (Acute) CVA (cerebral vascular accident) (Suspected) DKA (diabetic ketoacidoses) (Acute) Renal insufficiency (Acute) Hypertriglyceridemia (Acute) Subjective: No new complaints - Physical Exam General: Alert, Oriented x3, Cooperative HEENT: Atraumatic, PERRLA, EOMI, Normocephalic Neck: Supple, No JVD, Negative Carotid Bruits Lungs: Clear to auscultation, Normal air movement Cardiovascular: Regular rate, No murmurs Abdomen: Bowel Sounds Present, Soft, Non Tender Extremities: No edema, Capillary Refill Less than 3 Seconds Skin: No rashes, No breakdown Musculoskeletal: No Tenderness to Palpation of Joints or Extremities Neurological: Cranial nerves II-XII grossly intact Psych/Mental Status: Normal Affect, Appropriate Vital Signs Temp Pulse Resp BP Pulse Ox 97.9 F 68 18 145/78 H 96 10/08/18 09:30 10/08/18 14:58 10/08/18 09:30 10/08/18 14:58 10/08/18 11:28 Oxygen Flow Rate (L/min) 2 Oxygen Delivery Method Room Air Weight: 109.6 kg Body Mass Index (BMI) 40.6 Finger Stick Blood Glucose 158 Intake and Output for Last 24 Hours 10/06/18 10/07/18 10/08/18 23:59 23:59 23:59 Intake Total 1059 / 1059 2650.5 / 2650.5 712.1 / 712.1 Output Total 1700 / 1700 1650 / 1650 500 / 500 Balance -641 / -641 1000.5 / 1000.5 212.1 / 212.1 Microbiology Past 72 Hours 10/06/18 20:00 Streptococcus pneumoniae Antigen (M - Final Urine, Random 10/06/18 20:00 Legionella Antigen - Final Urine, Random 10/03/18 18:31 Blood Culture - Preliminary Blood Culture (Wb) - Right Hand No growth in 48 hours. 10/03/18 18:20 Blood Culture - Preliminary Blood Culture (Wb) - Right Wrist No growth in 48 hours. Laboratory Tests Past 24 Hrs 10/07/18 10/08/18 10/08/18 11:45 05:55 05:55 WBC 10.6 RBC 3.60 L Hgb 9.1 L Hct 28.0 L MCV 77.8 L MCH 25.3 L MCHC 32.5 RDW 17.2 H RDW Differential 49.4 H Plt Count 216 MPV 9.6 Immature Gran % (Auto) 1.400 H Neut % (Auto) 79.0 H Lymph % (Auto) 10.7 L [place] % (Auto) 6.0 Eos % (Auto) 2.7 Baso % (Auto) 0.2 Absolute Neuts (auto) 8.4 H Absolute Lymphs (auto) 1.13 Total Counted Not Reportable PT 15.8 H INR 1.3 APTT Sodium 142 Potassium 4.1 Chloride 112 H Carbon Dioxide 22.0 Anion Gap 8 BUN 47 H Creatinine 1.71 H Estim Creat Clear Calc 26.77 Est GFR (MDRD) Af Amer 38 L Est GFR (MDRD) Non-Af 32 L BUN/Creatinine Ratio 27.5 H Glucose 193 H Calcium 8.4 L 10/08/18 05:55 WBC RBC Hgb Hct MCV MCH MCHC RDW RDW Differential Plt Count MPV Immature Gran % (Auto) Neut % (Auto) Lymph % (Auto) Glynn % (Auto) Eos % (Auto) Baso % (Auto) Absolute Neuts (auto) Absolute Lymphs (auto) Total Counted PT 17.4 H INR 1.4 APTT 77.6 H Sodium Potassium Chloride Carbon Dioxide Anion Gap BUN Creatinine Estim Creat Clear Calc Est GFR (MDRD) Af Amer Est GFR (MDRD) Non-Af BUN/Creatinine Ratio Glucose Calcium POC Glucose 10/08/18 10/08/18 10/07/18 10:47 06:44 21:59 POC Glucose 260 H 177 H 189 H 10/07/18 16:24 POC Glucose 218 H Medical Necessity - Tobacco Use Smoking Status: Never smoker Tobacco Use: Non-smoker Assessment/Plan All Active Problems (Last Reviewed 07/11/18 @ 14:55 by Dede Kasper) Atrial fibrillation (Acute) DKA (diabetic ketoacidoses) (Acute) Renal insufficiency (Acute) Hypertriglyceridemia (Acute) Abnormal mammogram of right breast (Acute) Acute renal failure. Normal baseline creatinine. History of retention, improved with Butt placement. Creatinine is trending down. Urine analysis looked fairly dirty but she is clinically better. Since creatinine is continuing to improve, Hold off on further work-up. No acute indications for renal replacement therapy. Hyperkalemia. Likely mediated by acute renal failure, acidosis, hyperglycemia. Better. Acidosis. Mostly non-gap. Likely due to renal failure. oral bicarbonate for now. Creatinine is getting closer to baseline. Will likely stop oral bicarbonate tomorrow
[2018-10-08 17:11] LABS: Bedside Glucose 291 mg/dL (70-110)
[2018-10-08] MEDS: 0.9% NaCl Peripheral Flush Adult/Peds IV (22:16)
[2018-10-08] MEDS: Atorvastatin Calcium 40 MG Tablet PO (22:22)
[2018-10-08] MEDS: APIXABAN 5 MG TABLET PO (22:27)
[2018-10-08 22:36] LABS: Bedside Glucose 262 mg/dL (70-110)
[2018-10-09] VITALS (20 sets, daily range): BP systolic 124–188; BP diastolic 67–93; PULSE 55–79; RESP 16–20; TEMP 36.5–37.2; O2SAT 92–94
[2018-10-09] MEDS: Zolpidem Tartrate 5 MG Tablet PO (00:05)
[2018-10-09] MEDS: Sodium Bicarbonate 650 MG Tablet 1300 MG PO ×2 (05:07→12:31)
[2018-10-09] MEDS: hydrALAZINE 50 MG Tablet PO ×3 (05:07→22:14)
[2018-10-09] MEDS: Amiodarone 200 MG Tablet PO ×3 (05:08→22:13)
[2018-10-09 05:46] LABS: Absolute Lymphocyte Count 1.09 X10^3/ul (0.83-4.51); Absolute Neutrophil Count 11.2 X10^3/uL (2.0-7.7); Basophil# 0.02 X10^3/uL; Basophil% 0.1 % (0-1); Eosinophil# 0.27 X10^3/uL; Hematocrit 30.6 % (37-47); Hemoglobin 9.7 g/dl (12.0-15.0); Lymphocyte # 1.09 X10^3/ul (4.0); Lymphocyte % 8.1 % (19-41); Mean Corp Hgb Conc 31.7 g/gl (32-36); Mean Corpuscular Hgb 24.9 pg (27.0-32.0); Mean Corpuscular Volume 78.7 fL (81-99); Mean Platelet Vol. 10.4 fl (6.2-12.0); Monocyte% 5.2 % (0-10); Neutrophil # 11.21 X10^3/uL (2.7-7.7); Neutrophil % 82.9 % (47-70); Platelet Count 266 K/mm3 (150-450); RBC Distribution Width CV 17.3 % (11.6-14.6); RBC Distribution Width SD 48.2 fl (35.1-43.9); Red Blood Count 3.89 M/mm3 (4.2-5.4); White Blood Count 13.5 K/mm3 (4.4-11.0)
[2018-10-09 06:10] LABS: POSITIVE COUNT NO; POSITIVE DIFFERENTIAL NO; POSITIVE MORPHOLOGY NO
[2018-10-09 06:12] LABS: Anion Gap 7 (5-15); BUN 39 mg/dL (7-18); Calcium,Total 8.4 mg/dL (8.5-10.1); Chloride 113 mmol/L (98-107); EST Glomerular Filtration Rate 37 mL/min (>60); Est Glom Filt Rate - Afr Amer 45 mL/min (>60); Estimated Creatinine Clearance 30.52 ml/min; Glucose 218 mg/dL (74-106); Potassium 4.3 mmol/L (3.5-5.1); Sodium Level 144 mmol/L (136-145)
[2018-10-09 06:28] LABS: International Normalized Ratio 1.8; Prothrombin Time (Protime)PT. 20.8 SECONDS (11.7-14.9)
[2018-10-09 06:29] LABS: Partial Thromboplast Time 37.9 Seconds (24.1-36.2)
[2018-10-09] MEDS: Insulin Lispro 100 UNIT/ML INSULN.PEN SC ×4 (06:48→22:14)
[2018-10-09 07:00] LABS: Bedside Glucose 266 mg/dL (70-110)
--- NOTE | 2018-10-09 08:22 | PCA ---
Called and left a message on answering machine to cancel her apt for later this week. Per her request that she told to Dr. Ortiz.
[2018-10-09] MEDS: APIXABAN 5 MG TABLET PO ×2 (08:47→22:13)
[2018-10-09] MEDS: Aspirin 81 MG TAB.CHEW PO (08:47)
[2018-10-09] MEDS: Metoprolol Tartrate 100 MG Tablet PO ×2 (08:47→22:13)
[2018-10-09] MEDS: Tolterodine Tartrate 4 MG CAP.SA PO (08:47)
[2018-10-09] MEDS: Sertraline 100 MG Tablet PO (08:50)
--- NOTE | 2018-10-09 09:25 | PCM.PN.PUL ---
Patient Problems: Active and Suspected Problems (Last Reviewed 07/11/18 @ 14:55 by Dede Kasper) Atrial fibrillation (Acute) CVA (cerebral vascular accident) (Suspected) DKA (diabetic ketoacidoses) (Acute) Renal insufficiency (Acute) Hypertriglyceridemia (Acute) Subjective: Patient did okay overnight. Patient was compliant with CPAP therapy. Patient reports subjective improvement in overall condition. Patient has been able to ambulate with the assistance of a walker. - Physical Exam General: Alert, Oriented x3, Cooperative, No apparent distress, - - Morbidly obese. No conversational dyspnea. HEENT: Atraumatic, PERRLA, EOMI, Normocephalic, - - Exotropia noted of the left eye Oral: Moist Mucosa, No Gingival or Mucosal Lesions/ Ulcerations Neck: Supple, No JVD, No Nodes, Trachea Midline Lungs: No rhonchi, No wheeze, No rales, Diminished Cardiovascular: Normal S1, Normal S2, No murmurs, Irregular Rate, No rub noted, No Gallop Abdomen: Bowel Sounds Present, Soft, Non Tender, Non-Distended, Obese Extremities: No clubbing, No cyanosis, No edema, Capillary Refill Less than 3 Seconds Skin: - - Venous stasis changes. Musculoskeletal: No Tenderness to Palpation of Joints or Extremities, No Muscle Wasting Lymphatic: No Cervical, Supraclavicular, or Inguinal Adenopathy Neurological: Cranial nerves II-XII grossly intact, Neuro grossly intact, Motor Exam 5/5 strength throughout Psych/Mental Status: Normal Affect, Appropriate Vital Signs Temp Pulse Resp BP Pulse Ox 36.5 C L 71 20 H 166/86 H 92 10/09/18 05:05 10/09/18 08:47 10/09/18 05:05 10/09/18 08:47 10/09/18 05:05 Oxygen Flow Rate (L/min) 2 Oxygen Delivery Method CPAP Weight: 109.9 kg Body Mass Index (BMI) 40.6 Finger Stick Blood Glucose 158 Intake and Output for Last 24 Hours 10/07/18 10/08/18 10/09/18 23:59 23:59 23:59 Intake Total 2650.5 / 2650.5 1192.1 / 1192.1 501 / 501 Output Total 1650 / 1650 1000 / 1000 600 / 600 Balance 1000.5 / 1000.5 192.1 / 192.1 -99 / -99 Microbiology Past 72 Hours 10/03/18 18:31 Blood Culture - Final Blood Culture (Wb) - Right Hand No growth in 5 days. 10/03/18 18:20 Blood Culture - Final Blood Culture (Wb) - Right Wrist No growth in 5 days. 10/06/18 20:00 Streptococcus pneumoniae Antigen (M - Final Urine, Random 10/06/18 20:00 Legionella Antigen - Final Urine, Random Laboratory Tests Past 24 Hrs 10/09/18 10/09/18 10/09/18 05:00 05:00 05:00 WBC 13.5 H RBC 3.89 L Hgb 9.7 L Hct 30.6 L MCV 78.7 L MCH 24.9 L MCHC 31.7 L RDW 17.3 H RDW Differential 48.2 H Plt Count 266 MPV 10.4 Immature Gran % (Auto) 1.700 H Neut % (Auto) 82.9 H Lymph % (Auto) 8.1 L [place] % (Auto) 5.2 Eos % (Auto) 2.0 Baso % (Auto) 0.1 Absolute Neuts (auto) 11.2 H Absolute Lymphs (auto) 1.09 Total Counted Not Reportable PT 20.8 H INR 1.8 APTT 37.9 H Sodium 144 Potassium 4.3 Chloride 113 H Carbon Dioxide 24.0 Anion Gap 7 BUN 39 H Creatinine 1.50 H Estim Creat Clear Calc 30.52 Est GFR (MDRD) Af Amer 45 L Est GFR (MDRD) Non-Af 37 L BUN/Creatinine Ratio 26.0 H Glucose 218 H Calcium 8.4 L POC Glucose 10/09/18 10/08/18 10/08/18 06:47 22:18 17:02 POC Glucose 266 H 262 H 291 H 10/08/18 10:47 POC Glucose 260 H Medical Necessity - Tobacco Use Smoking Status: Never smoker Tobacco Use: Non-smoker Assessment/Plan All Active Problems (Last Reviewed 07/11/18 @ 14:55 by Dede Kasper) Atrial fibrillation (Acute) DKA (diabetic ketoacidoses) (Acute) Renal insufficiency (Acute) Hypertriglyceridemia (Acute) Abnormal mammogram of right breast (Acute) RECOMMENDATIONS: 1. Continue Zosyn as ordered. No indication for vancomycin at this time 2. Encourage chest physiotherapy with PEP and IS. 3. Wean supplemental oxygen to maintain saturations at or above 90%. 4. Continue nocturnal CPAP therapy per home regimen. 5. Defer management of atrial fibrillation/hypertension to cardiology. 6. Walking oximetry prior to discharge IMPRESSIONS: 1. Acute hypoxemic respiratory failure secondary to multifocal pneumonia The patient's chest CT from this morning was personally reviewed and did reveal evidence of multifocal airspace disease most pronounced throughout the right hemithorax with mild residual disease noted in the left base. The patient was placed on broad-spectrum antimicrobials and appears to be improving clinically. Patient was positive for MRSA screen, but appears to be responding well to current therapy. No indication for vancomycin at this time. Continue with aggressive pulmonary toileting. Walking oximetry prior to discharge. 2. E. coli cystitis Continue antibiotic coverage as noted above. 3. Acute ischemic CVA Continue current medical management per neurology recommendations. 4. New onset atrial fibrillation with RVR/hypertension Cardiology is following to assist with medical management. 5. Acute kidney injury Improving. Likely prerenal in etiology. Baseline appears to be approximately 1. Continue to monitor urine output. No indication for renal replacement therapy. 6. Personal history of obstructive sleep apnea Continue nocturnal CPAP therapy per home regimen. The patient regularly follows with Dr. Raymond. Patient reportedly has an appointment this week. Nursing to contact office to notify of current hospitalization. 7. Microcytic anemia/diabetes mellitus/depression/hypertension/hyperlipidemia/obesity Complicates care, management, recovery and prognosis. Physical therapy to continue to work with the patient. Code Visit Inpatient E&M: 85106 Subs Hosp L2
--- NOTE | 2018-10-09 12:04 | PCM.PN.HOSP ---
Patient Problems: Active and Suspected Problems (Last Reviewed 07/11/18 @ 14:55 by Dede Kasper) Atrial fibrillation (Acute) CVA (cerebral vascular accident) (Suspected) DKA (diabetic ketoacidoses) (Acute) Renal insufficiency (Acute) Hypertriglyceridemia (Acute) Subjective: Patient seen and examined. She has no complaints. Review of systems otherwise negative. Labs and vitals reviewed. Vitals/I&O's: Vital Signs Temp Pulse Resp BP Pulse Ox 97.7 F L 71 16 166/86 H 93 10/09/18 05:05 10/09/18 10:00 10/09/18 10:00 10/09/18 08:47 10/09/18 10:00 Oxygen Flow Rate (L/min) 2 Oxygen Delivery Method Room Air Weight: 242 lb 4.608 oz Body Mass Index (BMI) 40.6 Finger Stick Blood Glucose 158 Intake and Output for Last 24 Hours 10/07/18 10/08/18 10/09/18 23:59 23:59 23:59 Intake Total 2650.5 / 2650.5 1192.1 / 1192.1 501 / 501 Output Total 1650 / 1650 1000 / 1000 600 / 600 Balance 1000.5 / 1000.5 192.1 / 192.1 -99 / -99 General: Alert, Cooperative HEENT: Atraumatic, PERRLA, Normocephalic Oral: No Gingival or Mucosal Lesions/ Ulcerations Neck: Supple, No Nodes, Trachea Midline Lungs: No rhonchi, No wheeze, Diminished, Tachypneic, on 1L of oxygen by nasal canula Cardiovascular: Normal S1, Normal S2, No murmurs, Abdomen: Bowel Sounds Present, Soft, Non Tender, Obese Extremities: No clubbing, No cyanosis, No edema Skin: - -no rash or ulcerations Musculoskeletal: No Tenderness to Palpation of Joints or Extremities Lymphatic: No Cervical, Supraclavicular, or Inguinal Adenopathy Neurological: Neuro grossly intact Psych/Mental Status: Normal Affect, Appropriate Microbiology Past 72 Hours 10/03/18 18:31 Blood Culture (Wb) - Right Hand Blood Culture - Final No growth in 5 days. 10/03/18 18:20 Blood Culture (Wb) - Right Wrist Blood Culture - Final No growth in 5 days. 10/06/18 20:00 Urine, Random Streptococcus pneumoniae Antigen (M - Final 10/06/18 20:00 Urine, Random Legionella Antigen - Final Laboratory Results 10/08/18 17:02: POC Glucose 291 H 10/08/18 22:18: POC Glucose 262 H 10/09/18 05:00: WBC 13.5 H, RBC 3.89 L, Hgb 9.7 L, Hct 30.6 L, MCV 78.7 L, MCH 24.9 L, MCHC 31.7 L, RDW 17.3 H, RDW Differential 48.2 H, Plt Count 266, MPV 10.4, Immature Gran % (Auto) 1.700 H, Neut % (Auto) 82.9 H, Lymph % (Auto) 8.1 L, [place] % (Auto) 5.2, Eos % (Auto) 2.0, Baso % (Auto) 0.1, Absolute Neuts (auto) 11.2 H, Absolute Lymphs (auto) 1.09, Total Counted Not Reportable 10/09/18 05:00: Sodium 144, Potassium 4.3, Chloride 113 H, Carbon Dioxide 24.0, Anion Gap 7, BUN 39 H, Creatinine 1.50 H, Estim Creat Clear Calc 30.52, Est GFR (MDRD) Af Amer 45 L, Est GFR (MDRD) Non-Af 37 L, BUN/Creatinine Ratio 26.0 H, Glucose 218 H, Calcium 8.4 L 10/09/18 05:00: PT 20.8 H, INR 1.8, APTT 37.9 H 10/09/18 06:47: POC Glucose 266 H Current Medications Acetaminophen (Tylenol) 500 mg PO Q6H PRN PRN PRN Reason: PAIN Last Admin: 10/07/18 07:54 Dose: 500 mg Amiodarone HCl (Cordarone) 200 mg PO TID [facility] Last Admin: 10/09/18 05:08 Dose: 200 mg Apixaban (Eliquis) 5 mg PO BID [facility] Last Admin: 10/09/18 08:47 Dose: 5 mg Aspirin (Aspirin, Baby) 81 mg PO DAILY@0800 [facility] Last Admin: 10/09/18 08:47 Dose: 81 mg Atorvastatin Calcium (Lipitor) 40 mg PO QHS [facility] Last Admin: 10/08/18 22:22 Dose: 40 mg Cyclobenzaprine HCl (Cyclobenzaprine Hcl) 5 mg PO TID PRN PRN PRN Reason: SPASMS Dextrose (D50w Syringe) 0 gm IV X1 PRN; Protocol PRN Reason: Hypoglycemia Glucagon () 1 mg IM .X1 PRN PRN Reason: Hypoglycemia Hydralazine HCl (Apresoline Iv) 10 mg IV Q6H PRN PRN PRN Reason: BLOOD PRESSURE ELEVATION Last Admin: 10/06/18 10:13 Dose: 10 mg Hydralazine HCl (Apresoline) 50 mg PO TID [facility] Last Admin: 10/09/18 05:07 Dose: 50 mg Sodium Chloride () 250 mls @ 15 mls/hr IV .[id number] PRN PRN Reason: SALINE FLUSH Sodium Chloride () 500 mls @ 15 mls/hr IV .[id number] PRN PRN Reason: SALINE FLUSH Piperacillin Sod/Tazobactam (Sod 3.375 gm/ Sodium Chloride) 50 mls @ 12.5 mls/hr IV Q12 [facility] Last Admin: 10/09/18 08:54 Dose: 12.5 mls/hr Insulin Glargine (Lantus (Bkc)) 10 units SC DAILY [facility] Last Admin: 10/09/18 08:49 Dose: 10 u Insulin Human Lispro (Humalog Kwikpen (Bk)) 0 unit SC ACHS [facility]; Protocol Last Admin: 10/09/18 06:48 Dose: 3 u Labetalol HCl (Trandate) 10 mg IV Q4H PRN PRN PRN Reason: SBP>180 mmhg/HR>120 Last Admin: 10/06/18 05:01 Dose: 10 mg Metoprolol Tartrate (Lopressor (Beta Keanu)) 100 mg PO BID [facility] Last Admin: 10/09/18 08:47 Dose: 100 mg Sertraline HCl (Zoloft) 100 mg PO DAILY [facility] Last Admin: 10/09/18 08:50 Dose: 100 mg Sodium Bicarbonate (Sodium Bicarbonate) 1,300 mg PO TID [facility] Last Admin: 10/09/18 05:07 Dose: 1,300 mg Sodium Chloride () 5 - 15 ml IV UD PRN PRN Reason: SALINE FLUSH Last Admin: 10/08/18 22:16 Dose: 10 ml Throat Lozenges (Cepacol Sore Throat Lozenge) 2 lozenge MUCOUS MEM Q2H PRN PRN PRN Reason: SORE THROAT Tolterodine Tartrate (Detrol La) 4 mg PO DAILY [facility] Last Admin: 10/09/18 08:47 Dose: 4 mg Medical Necessity - Tobacco Use Smoking Status: Never smoker Tobacco Use: Non-smoker Assessment/Plan All Active Problems (Last Reviewed 07/11/18 @ 14:55 by Dede Kasper) Atrial fibrillation (Acute) DKA (diabetic ketoacidoses) (Acute) Renal insufficiency (Acute) Hypertriglyceridemia (Acute) Abnormal mammogram of right breast (Acute) 68-year-old female admitted with a complaint of generalized malaise and weakness found to be in A. fib with RVR, DKA and having severe CRISTIAN. 1. Afib with RVR now rate and rhythm controlled. on PO amiodarone and metoprolol. TO have PO amiodarone 200mg tid till Tuesday, then switch to amiodarone 200mg bid. cardiology on board 2D echo showed: EF of 75%, with moderately enlarged left atrium and normal right atrium; mild mitral valve stenosis, estimated RVSP of 48mmHg; mild aortic stenosis. on PO eliquis 5mg bid. for stress test and further workup once acute illness phase is over 2. Acute hypoxic respiratory failure due to community acquired pneumonia now down to 1L of oxygen. tachypnea has resolved. Chest CT showed bilateral airspace disease, worse in right hemithorax, with a small right pleural effusion. will broaden IV antibiotics from ceftriaxone to IV zosyn. pulmonology on board BIPAP prn and titrate oxygen to maintain sats>90% 3. DKA resolved. A1C was 9.8 on insulin 10IU qhs; hold metformin, januvia and glimepiride for now accuchecks ACHS; ISS 4. CRISTIAN Cr was 5.31 on admisison, is now down to 1.50 FeNA was 1%, indicating pre-renal cause renal USG was unremarkable nephrology on board 5. Sepsis due to UTI and pneumonia on IV zosyn urine cultured E. coli, sensitive to ceftriaxone now on IV zosyn o/a of pneumonia blood cultures showed no growth in 48 hours 6. Hyperkalemia and nonanion gap metabolic acidosis resolved. started on oral sodium bicarbonate per nephrology yesterday. 7. Acute ischemic CVA NIHSS- [address] brain showed lacunar infarct in insular cortex of right temporal lobe and decreased attenuation in the posterior right temporal parietal lobe; subacute ischemia should be ruled out MRI showed suspicition for 2.9mm actue lacunar infarct in right centrum semiovale neurology didnt really think it was a stroke though. MRA of neck was normal, and MRA of head was also normal except for dominant right vertebral artery on high intensity statin and aspirin. Started on eliquis 5mg bid. PT/OT on board 8. Hyponatremia: resolved 9. Hypertension: fairly well controlled. on PO metoprolol. Losartan still held o/a of CRISTIAN IV hydralazine prn. 10. Urinary retention: On oxybutynin. DVT prophylaxis:on eliquis Disposition: awaiting placement Code Visit Inpatient E&M: 05290 Subs Hosp L3
--- NOTE | 2018-10-09 12:08 | PN_ITS ---
Patient Problems: Active and Suspected Problems (Last Reviewed 07/11/18 @ 14:55 by Dede Kasper) Atrial fibrillation (Acute) CVA (cerebral vascular accident) (Suspected) DKA (diabetic ketoacidoses) (Acute) Renal insufficiency (Acute) Hypertriglyceridemia (Acute) Subjective: Patient seen and examined. She has no complaints. Review of systems otherwise negative. Labs and vitals reviewed. Vitals/I&O's: Vital Signs Temp Pulse Resp BP Pulse Ox 97.7 F L 71 16 166/86 H 93 10/09/18 05:05 10/09/18 10:00 10/09/18 10:00 10/09/18 08:47 10/09/18 10:00 Oxygen Flow Rate (L/min) 2 Oxygen Delivery Method Room Air Weight: 242 lb 4.608 oz Body Mass Index (BMI) 40.6 Finger Stick Blood Glucose 158 Intake and Output for Last 24 Hours 10/07/18 10/08/18 10/09/18 23:59 23:59 23:59 Intake Total 2650.5 / 2650.5 1192.1 / 1192.1 501 / 501 Output Total 1650 / 1650 1000 / 1000 600 / 600 Balance 1000.5 / 1000.5 192.1 / 192.1 -99 / -99 General: Alert, Cooperative HEENT: Atraumatic, PERRLA, Normocephalic Oral: No Gingival or Mucosal Lesions/ Ulcerations Neck: Supple, No Nodes, Trachea Midline Lungs: No rhonchi, No wheeze, Diminished, Tachypneic, on 1L of oxygen by nasal canula Cardiovascular: Normal S1, Normal S2, No murmurs, Abdomen: Bowel Sounds Present, Soft, Non Tender, Obese Extremities: No clubbing, No cyanosis, No edema Skin: - -no rash or ulcerations Musculoskeletal: No Tenderness to Palpation of Joints or Extremities Lymphatic: No Cervical, Supraclavicular, or Inguinal Adenopathy Neurological: Neuro grossly intact Psych/Mental Status: Normal Affect, Appropriate Microbiology Past 72 Hours 10/03/18 18:31 Blood Culture (Wb) - Right Hand Blood Culture - Final No growth in 5 days. 10/03/18 18:20 Blood Culture (Wb) - Right Wrist Blood Culture - Final No growth in 5 days. 10/06/18 20:00 Urine, Random Streptococcus pneumoniae Antigen (M - Final 10/06/18 20:00 Urine, Random Legionella Antigen - Final Laboratory Results 10/08/18 17:02: POC Glucose 291 H 10/08/18 22:18: POC Glucose 262 H 10/09/18 05:00: WBC 13.5 H, RBC 3.89 L, Hgb 9.7 L, Hct 30.6 L, MCV 78.7 L, MCH 24.9 L, MCHC 31.7 L, RDW 17.3 H, RDW Differential 48.2 H, Plt Count 266, MPV 10.4, Immature Gran % (Auto) 1.700 H, Neut % (Auto) 82.9 H, Lymph % (Auto) 8.1 L , [place] % (Auto) 5.2, Eos % (Auto) 2.0, Baso % (Auto) 0.1, Absolute Neuts (auto) 11.2 H, Absolute Lymphs (auto) 1.09, Total Counted Not Reportable 10/09/18 05:00: Sodium 144, Potassium 4.3, Chloride 113 H, Carbon Dioxide 24.0, Anion Gap 7, BUN 39 H, Creatinine 1.50 H, Estim Creat Clear Calc 30.52, Est GFR (MDRD) Af Amer 45 L, Est GFR (MDRD) Non-Af 37 L, BUN/Creatinine Ratio 26.0 H, Glucose 218 H, Calcium 8.4 L 10/09/18 05:00: PT 20.8 H, INR 1.8, APTT 37.9 H 10/09/18 06:47: POC Glucose 266 H Current Medications Acetaminophen (Tylenol) 500 mg PO Q6H PRN PRN PRN Reason: PAIN Last Admin: 10/07/18 07:54 Dose: 500 mg Amiodarone HCl (Cordarone) 200 mg PO TID [facility] Last Admin: 10/09/18 05:08 Dose: 200 mg Apixaban (Eliquis) 5 mg PO BID [facility] Last Admin: 10/09/18 08:47 Dose: 5 mg Aspirin (Aspirin, Baby) 81 mg PO DAILY@0800 [facility] Last Admin: 10/09/18 08:47 Dose: 81 mg Atorvastatin Calcium (Lipitor) 40 mg PO QHS [facility] Last Admin: 10/08/18 22:22 Dose: 40 mg Cyclobenzaprine HCl (Cyclobenzaprine Hcl) 5 mg PO TID PRN PRN PRN Reason: SPASMS Dextrose (D50w Syringe) 0 gm IV X1 PRN; Protocol PRN Reason: Hypoglycemia Glucagon () 1 mg IM .X1 PRN PRN Reason: Hypoglycemia Hydralazine HCl (Apresoline Iv) 10 mg IV Q6H PRN PRN PRN Reason: BLOOD PRESSURE ELEVATION Last Admin: 10/06/18 10:13 Dose: 10 mg Hydralazine HCl (Apresoline) 50 mg PO TID [facility] Last Admin: 10/09/18 05:07 Dose: 50 mg Sodium Chloride () 250 mls @ 15 mls/hr IV .[id number] PRN PRN Reason: SALINE FLUSH Sodium Chloride () 500 mls @ 15 mls/hr IV .[id number] PRN PRN Reason: SALINE FLUSH Piperacillin Sod/Tazobactam (Sod 3.375 gm/ Sodium Chloride) 50 mls @ 12.5 mls/hr IV Q12 [facility] Last Admin: 10/09/18 08:54 Dose: 12.5 mls/hr Insulin Glargine (Lantus (Bkc)) 10 units SC DAILY [facility] Last Admin: 10/09/18 08:49 Dose: 10 u Insulin Human Lispro (Humalog Kwikpen (Bk)) 0 unit SC ACHS [facility]; Protocol Last Admin: 10/09/18 06:48 Dose: 3 u Labetalol HCl (Trandate) 10 mg IV Q4H PRN PRN PRN Reason: SBP>180 mmhg/HR>120 Last Admin: 10/06/18 05:01 Dose: 10 mg Metoprolol Tartrate (Lopressor (Beta Keanu)) 100 mg PO BID [facility] Last Admin: 10/09/18 08:47 Dose: 100 mg Sertraline HCl (Zoloft) 100 mg PO DAILY [facility] Last Admin: 10/09/18 08:50 Dose: 100 mg Sodium Bicarbonate (Sodium Bicarbonate) 1,300 mg PO TID [facility] Last Admin: 10/09/18 05:07 Dose: 1,300 mg Sodium Chloride () 5 - 15 ml IV UD PRN PRN Reason: SALINE FLUSH Last Admin: 10/08/18 22:16 Dose: 10 ml Throat Lozenges (Cepacol Sore Throat Lozenge) 2 lozenge MUCOUS MEM Q2H PRN PRN PRN Reason: SORE THROAT Tolterodine Tartrate (Detrol La) 4 mg PO DAILY [facility] Last Admin: 10/09/18 08:47 Dose: 4 mg Medical Necessity - Tobacco Use Smoking Status: Never smoker Tobacco Use: Non-smoker Assessment/Plan All Active Problems (Last Reviewed 07/11/18 @ 14:55 by Dede Kasper) Atrial fibrillation (Acute) DKA (diabetic ketoacidoses) (Acute) Renal insufficiency (Acute) Hypertriglyceridemia (Acute) Abnormal mammogram of right breast (Acute) 68-year-old female admitted with a complaint of generalized malaise and weakness found to be in A. fib with RVR, DKA and having severe CRISTIAN. 1. Afib with RVR * now rate and rhythm controlled. * on PO amiodarone and metoprolol. TO have PO amiodarone 200mg tid till Tuesday, then switch to amiodarone 200mg bid. * cardiology on board * 2D echo showed: EF of 75%, with moderately enlarged left atrium and normal right atrium; mild mitral valve stenosis, estimated RVSP of 48mmHg; mild aortic stenosis. * on PO eliquis 5mg bid. * for stress test and further workup once acute illness phase is over * 2. Acute hypoxic respiratory failure due to community acquired pneumonia * now down to 1L of oxygen. tachypnea has resolved. * Chest CT showed bilateral airspace disease, worse in right hemithorax, with a small right pleural effusion. * will broaden IV antibiotics from ceftriaxone to IV zosyn. * pulmonology on board * BIPAP prn and titrate oxygen to maintain sats>90% * 3. DKA * resolved. * A1C was 9.8 * on insulin 10IU qhs; hold metformin, januvia and glimepiride for now * accuchecks ACHS; ISS * 4. CRISTIAN * Cr was 5.31 on admisison, is now down to 1.50 * FeNA was 1%, indicating pre-renal cause * renal USG was unremarkable * nephrology on board * * 5. Sepsis due to UTI and pneumonia * on IV zosyn * urine cultured E. coli, sensitive to ceftriaxone * now on IV zosyn o/a of pneumonia * blood cultures showed no growth in 48 hours * 6. Hyperkalemia and nonanion gap metabolic acidosis * resolved. * started on oral sodium bicarbonate per nephrology yesterday. * 7. Acute ischemic CVA * NIHSS- 1 on admission * CT brain showed lacunar infarct in insular cortex of right temporal lobe and decreased attenuation in the posterior right temporal parietal lobe; subacute ischemia should be ruled out * MRI showed suspicition for 2.9mm actue lacunar infarct in right centrum semiovale * neurology didnt really think it was a stroke though. * MRA of neck was normal, and MRA of head was also normal except for dominant right vertebral artery * on high intensity statin and aspirin. Started on eliquis 5mg bid. * PT/OT on board * * 8. Hyponatremia: * resolved * 9. Hypertension: * fairly well controlled. * on PO metoprolol. Losartan still held o/a of CRISTIAN * IV hydralazine prn. 10. Urinary retention: On oxybutynin. DVT prophylaxis:on eliquis Disposition: awaiting placement Code Visit Inpatient E&M: 94556 [facility] [place] L3
[2018-10-09 12:26] LABS: Bedside Glucose 289 mg/dL (70-110)
[2018-10-09] MEDS: hydrALAZINE 20 MG/ML Vial 10 MG IV (16:05)
[2018-10-09 16:16] LABS: Bedside Glucose 235 mg/dL (70-110)
--- NOTE | 2018-10-09 17:05 | PCM.PN.REN ---
Patient Problems: Active and Suspected Problems (Last Reviewed 07/11/18 @ 14:55 by Dede Kasper) Atrial fibrillation (Acute) CVA (cerebral vascular accident) (Suspected) DKA (diabetic ketoacidoses) (Acute) Renal insufficiency (Acute) Hypertriglyceridemia (Acute) Subjective: No new complaints - Physical Exam General: Alert, Oriented x3, Cooperative HEENT: Atraumatic, PERRLA, EOMI, Normocephalic Neck: Supple, No JVD, Negative Carotid Bruits Lungs: Clear to auscultation, Normal air movement Cardiovascular: Regular rate, No murmurs Abdomen: Bowel Sounds Present, Soft, Non Tender Extremities: No edema, Capillary Refill Less than 3 Seconds Skin: No rashes, No breakdown Musculoskeletal: No Tenderness to Palpation of Joints or Extremities Neurological: Cranial nerves II-XII grossly intact Psych/Mental Status: Normal Affect, Appropriate Vital Signs Temp Pulse Resp BP Pulse Ox 98 F 71 16 167/93 H 92 10/09/18 11:05 10/09/18 16:05 10/09/18 11:05 10/09/18 16:05 10/09/18 14:14 Oxygen Flow Rate (L/min) 2 Oxygen Delivery Method Nasal Cannula Weight: 109.9 kg Body Mass Index (BMI) 40.6 Finger Stick Blood Glucose 158 Intake and Output for Last 24 Hours 10/07/18 10/08/18 10/09/18 23:59 23:59 23:59 Intake Total 2650.5 / 2650.5 1192.1 / 1192.1 501 / 501 Output Total 1650 / 1650 1000 / 1000 600 / 600 Balance 1000.5 / 1000.5 192.1 / 192.1 -99 / -99 Microbiology Past 72 Hours 10/03/18 18:31 Blood Culture - Final Blood Culture (Wb) - Right Hand No growth in 5 days. 10/03/18 18:20 Blood Culture - Final Blood Culture (Wb) - Right Wrist No growth in 5 days. 10/06/18 20:00 Streptococcus pneumoniae Antigen (M - Final Urine, Random 10/06/18 20:00 Legionella Antigen - Final Urine, Random Laboratory Tests Past 24 Hrs 10/09/18 10/09/18 10/09/18 05:00 05:00 05:00 WBC 13.5 H RBC 3.89 L Hgb 9.7 L Hct 30.6 L MCV 78.7 L MCH 24.9 L MCHC 31.7 L RDW 17.3 H RDW Differential 48.2 H Plt Count 266 MPV 10.4 Immature Gran % (Auto) 1.700 H Neut % (Auto) 82.9 H Lymph % (Auto) 8.1 L [place] % (Auto) 5.2 Eos % (Auto) 2.0 Baso % (Auto) 0.1 Absolute Neuts (auto) 11.2 H Absolute Lymphs (auto) 1.09 Total Counted Not Reportable PT 20.8 H INR 1.8 APTT 37.9 H Sodium 144 Potassium 4.3 Chloride 113 H Carbon Dioxide 24.0 Anion Gap 7 BUN 39 H Creatinine 1.50 H Estim Creat Clear Calc 30.52 Est GFR (MDRD) Af Amer 45 L Est GFR (MDRD) Non-Af 37 L BUN/Creatinine Ratio 26.0 H Glucose 218 H Calcium 8.4 L POC Glucose 10/09/18 10/09/18 10/09/18 15:58 12:23 06:47 POC Glucose 235 H 289 H 266 H 10/08/18 10/08/18 22:18 17:02 POC Glucose 262 H 291 H Medical Necessity - Tobacco Use Smoking Status: Never smoker Tobacco Use: Non-smoker Assessment/Plan All Active Problems (Last Reviewed 07/11/18 @ 14:55 by Dede Kasper) Atrial fibrillation (Acute) DKA (diabetic ketoacidoses) (Acute) Renal insufficiency (Acute) Hypertriglyceridemia (Acute) Abnormal mammogram of right breast (Acute) Acute renal failure. Normal baseline creatinine. History of retention, improved with Butt placement. Creatinine is trending down. Urine analysis looked fairly dirty but she is clinically better. Since creatinine is continuing to improve, Hold off on further work-up. No acute indications for renal replacement therapy. Hyperkalemia. Likely mediated by acute renal failure, acidosis, hyperglycemia. Better. Acidosis. Mostly non-gap. Likely due to renal failure. Serum bicarbonate is normal. DC oral bicarbonate
[2018-10-09] MEDS: Atorvastatin Calcium 40 MG Tablet PO (22:15)
[2018-10-09 22:26] LABS: Bedside Glucose 273 mg/dL (70-110)
[2018-10-09] MEDS: ALPRAZolam 0.5 MG Tablet PO (23:20)
[2018-10-10] VITALS (14 sets, daily range): BP systolic 143–190; BP diastolic 59–75; PULSE 51–71; RESP 18–28; TEMP 36.4–36.7; O2SAT 89–95
[2018-10-10] MEDS: Amiodarone 200 MG Tablet PO (05:20)
[2018-10-10] MEDS: hydrALAZINE 50 MG Tablet PO (05:20)
[2018-10-10] MEDS: Insulin Lispro 100 UNIT/ML INSULN.PEN SC ×2 (06:40→11:00)
[2018-10-10 06:45] LABS: Bedside Glucose 222 mg/dL (70-110)
[2018-10-10 07:31] LABS: International Normalized Ratio 1.8; Prothrombin Time (Protime)PT. 20.5 SECONDS (11.7-14.9)
[2018-10-10 07:50] LABS: Absolute Lymphocyte Count 1.17 X10^3/ul (0.83-4.51); Absolute Neutrophil Count 11.7 X10^3/uL (2.0-7.7); Basophil# 0.02 X10^3/uL; Basophil% 0.1 % (0-1); Eosinophil# 0.27 X10^3/uL; Eosinophils% 1.9 % (0-5); Hematocrit 30.6 % (37-47); Hemoglobin 9.6 g/dl (12.0-15.0); Lymphocyte # 1.17 X10^3/ul (4.0); Lymphocyte % 8.4 % (19-41); Mean Corp Hgb Conc 31.4 g/gl (32-36); Mean Corpuscular Hgb 24.9 pg (27.0-32.0); Mean Corpuscular Volume 79.5 fL (81-99); Mean Platelet Vol. 10.2 fl (6.2-12.0); Monocyte# 0.62 X10^3/uL; Monocyte% 4.4 % (0-10); Neutrophil # 11.67 X10^3/uL (2.7-7.7); Neutrophil % 83.6 % (47-70); Platelet Count 265 K/mm3 (150-450); RBC Distribution Width CV 17.3 % (11.6-14.6); RBC Distribution Width SD 48.1 fl (35.1-43.9); Red Blood Count 3.85 M/mm3 (4.2-5.4)
[2018-10-10 07:52] LABS: Anion Gap 5 (5-15); BUN 30 mg/dL (7-18); BUN/Creat Ratio 22.4 RATIO (10-20); Chloride 110 mmol/L (98-107); Creatinine, Serum 1.34 mg/dL (0.55-1.02); EST Glomerular Filtration Rate 42 mL/min (>60); Est Glom Filt Rate - Afr Amer 51 mL/min (>60); Estimated Creatinine Clearance 34.16 ml/min; Glucose 233 mg/dL (74-106); Potassium 4.3 mmol/L (3.5-5.1); Sodium Level 139 mmol/L (136-145)
[2018-10-10 07:56] LABS: POSITIVE COUNT NO; POSITIVE DIFFERENTIAL NO; POSITIVE MORPHOLOGY NO
--- NOTE | 2018-10-10 08:02 | PCM.PN.PUL ---
Patient Problems: Active and Suspected Problems (Last Reviewed 07/11/18 @ 14:55 by Dede Kasper) Atrial fibrillation (Acute) CVA (cerebral vascular accident) (Suspected) DKA (diabetic ketoacidoses) (Acute) Renal insufficiency (Acute) Hypertriglyceridemia (Acute) Subjective: Patient did okay overnight. Patient is requesting discharge at this time. Patient does report some dyspnea on exertion, but does not believe this is much different than her baseline. Patient is still requiring supplemental oxygen as nursing had noted patient was 87% on room air earlier today. Patient denies any chest pain. Patient did have significant hypertension overnight, but this is denying any headaches or focal neurologic issues. - Physical Exam General: Alert, Oriented x3, Cooperative, No apparent distress, - - [place] obese. No conversational dyspnea. HEENT: Atraumatic, PERRLA, EOMI, Normocephalic, - - No scleral icterus or injection noted. Oral: Moist Mucosa, No Gingival or Mucosal Lesions/ Ulcerations Neck: Supple, No JVD, No Nodes, Trachea Midline Lungs: No rhonchi, No wheeze, No rales, Diminished, - - Symmetric expansion. No dullness to percussion. Cardiovascular: Normal S1, Normal S2, No murmurs, Irregular Rate, No rub noted, No Gallop Abdomen: Bowel Sounds Present, Soft, Non Tender, Non-Distended, Obese Extremities: No clubbing, No cyanosis, Edema Skin: - - No significant change compared to previous Musculoskeletal: No Tenderness to Palpation of Joints or Extremities, No Muscle Wasting Lymphatic: No Cervical, Supraclavicular, or Inguinal Adenopathy Neurological: Cranial nerves II-XII grossly intact, Neuro grossly intact, Motor Exam 5/5 strength throughout Psych/Mental Status: Alert and oriented to time, place, person, mood and affect Vital Signs Temp Pulse Resp BP Pulse Ox 36.7 C 65 18 169/74 H 93 10/10/18 06:35 10/10/18 07:00 10/10/18 06:35 10/10/18 06:35 10/10/18 06:35 Oxygen Flow Rate (L/min) 2 Oxygen Delivery Method Nasal Cannula Weight: 111.1 kg Body Mass Index (BMI) 40.6 Finger Stick Blood Glucose 158 Intake and Output for Last 24 Hours 10/08/18 10/09/18 10/10/18 23:59 23:59 23:59 Intake Total 1192.1 / 1192.1 1201 / 1201 983.5 / 983.5 Output Total 1000 / 1000 600 / 600 300 / 300 Balance 192.1 / 192.1 601 / 601 683.5 / 683.5 Microbiology Past 72 Hours 10/03/18 18:31 Blood Culture - Final Blood Culture (Wb) - Right Hand No growth in 5 days. 10/03/18 18:20 Blood Culture - Final Blood Culture (Wb) - Right Wrist No growth in 5 days. Laboratory Tests Past 24 Hrs 10/10/18 10/10/18 10/10/18 06:54 06:54 06:54 WBC 14.0 H RBC 3.85 L Hgb 9.6 L Hct 30.6 L MCV 79.5 L MCH 24.9 L MCHC 31.4 L RDW 17.3 H RDW Differential 48.1 H Plt Count 265 MPV 10.2 Immature Gran % (Auto) 1.600 H Neut % (Auto) 83.6 H Lymph % (Auto) 8.4 L [place] % (Auto) 4.4 Eos % (Auto) 1.9 Baso % (Auto) 0.1 Absolute Neuts (auto) 11.7 H Absolute Lymphs (auto) 1.17 Total Counted Not Reportable PT 20.5 H INR 1.8 Sodium 139 Potassium 4.3 Chloride 110 H Carbon Dioxide 24.0 Anion Gap 5 BUN 30 H Creatinine 1.34 H Estim Creat Clear Calc 34.16 Est GFR (MDRD) Af Amer 51 L Est GFR (MDRD) Non-Af 42 L BUN/Creatinine Ratio 22.4 H Glucose 233 H Calcium 8.0 L POC Glucose 10/10/18 10/09/18 10/09/18 06:38 22:08 15:58 POC Glucose 222 H 273 H 235 H 10/09/18 12:23 POC Glucose 289 H Medical Necessity - Tobacco Use Smoking Status: Never smoker Tobacco Use: Non-smoker Assessment/Plan All Active Problems (Last Reviewed 07/11/18 @ 14:55 by Dede Kasper) Atrial fibrillation (Acute) DKA (diabetic ketoacidoses) (Acute) Renal insufficiency (Acute) Hypertriglyceridemia (Acute) Abnormal mammogram of right breast (Acute) RECOMMENDATIONS: 1. Continue Zosyn as ordered. No indication for vancomycin at this time 2. Encourage chest physiotherapy with PEP and IS. 3. Wean supplemental oxygen to maintain saturations at or above 90%. 4. Continue nocturnal CPAP therapy per home regimen. 5. Defer management of atrial fibrillation/hypertension to cardiology/nephrology. 6. Walking oximetry prior to discharge 7. Okay to discharge on supplemental oxygen. Can be reevaluated as an outpatient with Dr. Raymond IMPRESSIONS: 1. Acute hypoxemic respiratory failure secondary to multifocal pneumonia The patient's chest CT was personally reviewed and did reveal evidence of multifocal airspace disease most pronounced throughout the right hemithorax with mild residual disease noted in the left base. The patient was placed on broad-spectrum antimicrobials and appears to be improving clinically. Patient was positive for MRSA screen, but appears to be responding well to current therapy. No indication for vancomycin at this time. Continue with aggressive pulmonary toileting. Walking oximetry prior to discharge. Patient states she is willing to be discharged on supplemental oxygen if required. This could be reevaluated as an outpatient. 2. E. coli cystitis Continue antibiotic coverage as noted above. 3. Acute ischemic CVA Continue current medical management per neurology recommendations. 4. New onset atrial fibrillation with RVR/hypertension Cardiology is following to assist with medical management. Patient's blood pressures were significantly elevated overnight. 5. Acute kidney injury Improving. Likely prerenal in etiology. Baseline appears to be approximately 1. Continue to monitor urine output. No indication for renal replacement therapy. 6. Personal history of obstructive sleep apnea Continue nocturnal CPAP therapy per home regimen. The patient regularly follows with Dr. Raymond. Patient reportedly has an appointment this week. Nursing to contact office to notify of current hospitalization. 7. Microcytic anemia/diabetes mellitus/depression/hypertension/hyperlipidemia/obesity Complicates care, management, recovery and prognosis. Physical therapy to continue to work with the patient. Code Visit Inpatient E&M: 41933 Subs Hosp L2
--- NOTE | 2018-10-10 09:04 | CASEMGMT ---
Addendum entered by Daphne Galindo 10/10/18 13:14: Precert attained for pt to go to TCU. SW texted physician to let her know. Pt is sleeping at present. LONG Alfaro Original Note: SW spoke w/Josefina in TCU, we are still waiting for precert. She will let this SW know once precert attained. LONG Alfaro
[2018-10-10] MEDS: APIXABAN 5 MG TABLET PO (09:10)
[2018-10-10] MEDS: Aspirin 81 MG TAB.CHEW PO (09:11)
[2018-10-10] MEDS: Metoprolol Tartrate 100 MG Tablet PO (09:11)
[2018-10-10] MEDS: Tolterodine Tartrate 4 MG CAP.SA PO (09:12)
[2018-10-10] MEDS: Sertraline 100 MG Tablet PO (09:12)
[2018-10-10 11:10] LABS: Bedside Glucose 291 mg/dL (70-110)
[2018-10-10] MEDS: hydrALAZINE 20 MG/ML Vial 10 MG IV (11:30)
--- NOTE | 2018-10-10 12:25 | PN.RENAL_ITS ---
Patient Problems: Active and Suspected Problems (Last Reviewed 07/11/18 @ 14:55 by Dede Kasper) Atrial fibrillation (Acute) CVA (cerebral vascular accident) (Suspected) DKA (diabetic ketoacidoses) (Acute) Renal insufficiency (Acute) Hypertriglyceridemia (Acute) Subjective: no new complaints - Physical Exam General: Alert, Oriented x3, Cooperative HEENT: Atraumatic, PERRLA, EOMI, Normocephalic Neck: Supple, No JVD, Negative Carotid Bruits Lungs: Clear to auscultation, Normal air movement Cardiovascular: Regular rate, No murmurs Abdomen: Bowel Sounds Present, Soft, Non Tender Extremities: No edema, Capillary Refill Less than 3 Seconds Skin: No rashes, No breakdown Musculoskeletal: No Tenderness to Palpation of Joints or Extremities Neurological: Cranial nerves II-XII grossly intact Psych/Mental Status: Normal Affect, Appropriate Vital Signs Temp Pulse Resp BP Pulse Ox 98.0 F 60 28 H 173/70 H 93 10/10/18 11:10 10/10/18 11:30 10/10/18 11:10 10/10/18 11:30 10/10/18 11:10 Oxygen Flow Rate (L/min) 2 Oxygen Delivery Method Nasal Cannula Weight: 111.1 kg Body Mass Index (BMI) 40.6 Finger Stick Blood Glucose 158 Intake and Output for Last 24 Hours 10/08/18 10/09/18 10/10/18 23:59 23:59 23:59 Intake Total 1192.1 / 1192.1 1201 / 1201 983.5 / 983.5 Output Total 1000 / 1000 600 / 600 300 / 300 Balance 192.1 / 192.1 601 / 601 683.5 / 683.5 Microbiology Past 72 Hours 10/03/18 18:31 Blood Culture - Final Blood Culture (Wb) - Right Hand No growth in 5 days. 10/03/18 18:20 Blood Culture - Final Blood Culture (Wb) - Right Wrist No growth in 5 days. Laboratory Tests Past 24 Hrs 10/10/18 10/10/18 10/10/18 06:54 06:54 06:54 WBC 14.0 H RBC 3.85 L Hgb 9.6 L Hct 30.6 L MCV 79.5 L MCH 24.9 L MCHC 31.4 L RDW 17.3 H RDW Differential 48.1 H Plt Count 265 MPV 10.2 Immature Gran % (Auto) 1.600 H Neut % (Auto) 83.6 H Lymph % (Auto) 8.4 L [place] % (Auto) 4.4 Eos % (Auto) 1.9 Baso % (Auto) 0.1 Absolute Neuts (auto) 11.7 H Absolute Lymphs (auto) 1.17 Total Counted Not Reportable PT 20.5 H INR 1.8 Sodium 139 Potassium 4.3 Chloride 110 H Carbon Dioxide 24.0 Anion Gap 5 BUN 30 H Creatinine 1.34 H Estim Creat Clear Calc 34.16 Est GFR (MDRD) Af Amer 51 L Est GFR (MDRD) Non-Af 42 L BUN/Creatinine Ratio 22.4 H Glucose 233 H Calcium 8.0 L POC Glucose 10/10/18 10/10/18 10/09/18 10:59 06:38 22:08 POC Glucose 291 H 222 H 273 H 10/09/18 10/09/18 15:58 12:23 POC Glucose 235 H 289 H Medical Necessity - Tobacco Use Smoking Status: Never smoker Tobacco Use: Non-smoker Assessment/Plan All Active Problems (Last Reviewed 07/11/18 @ 14:55 by Dede Kasper) Atrial fibrillation (Acute) DKA (diabetic ketoacidoses) (Acute) Renal insufficiency (Acute) Hypertriglyceridemia (Acute) Abnormal mammogram of right breast (Acute) Acute renal failure. Normal baseline creatinine. History of retention, improved with Butt placement. Creatinine is trending down. Urine analysis looked fairly dirty but she is clinically better. Since creatinine is continuing to improve, Hold off on further work-up. No acute indications for renal replacement therapy. Hyperkalemia. Likely mediated by acute renal failure, acidosis, hyperglycemia. Better. Acidosis. Mostly non-gap. Likely due to renal failure. Serum bicarbonate is normal.
--- NOTE | 2018-10-10 12:25 | PCM.PN.HOSP ---
Patient Problems: Active and Suspected Problems (Last Reviewed 07/11/18 @ 14:55 by Dede Kasper) Atrial fibrillation (Acute) CVA (cerebral vascular accident) (Suspected) DKA (diabetic ketoacidoses) (Acute) Renal insufficiency (Acute) Hypertriglyceridemia (Acute) Subjective: Patient seen and examined. She has no complaints today. Review of systems otherwise negative. Labs and vitals reviewed. Vitals/I&O's: Vital Signs Temp Pulse Resp BP Pulse Ox 98.0 F 60 28 H 173/70 H 93 10/10/18 11:10 10/10/18 11:30 10/10/18 11:10 10/10/18 11:30 10/10/18 11:10 Oxygen Flow Rate (L/min) 2 Oxygen Delivery Method Nasal Cannula Weight: 244 lb 14.937 oz Body Mass Index (BMI) 40.6 Finger Stick Blood Glucose 158 Intake and Output for Last 24 Hours 10/08/18 10/09/18 10/10/18 23:59 23:59 23:59 Intake Total 1192.1 / 1192.1 1201 / 1201 983.5 / 983.5 Output Total 1000 / 1000 600 / 600 300 / 300 Balance 192.1 / 192.1 601 / 601 683.5 / 683.5 General: Alert, Cooperative HEENT: Atraumatic, PERRLA, Normocephalic Oral: No Gingival or Mucosal Lesions/ Ulcerations Neck: Supple, No Nodes, Trachea Midline Lungs: No rhonchi, No wheeze, Diminished, Tachypneic, on room air. Cardiovascular: Normal S1, Normal S2, No murmurs, Abdomen: Bowel Sounds Present, Soft, Non Tender, Obese Extremities: No clubbing, No cyanosis, No edema Skin: - -no rash or ulcerations Musculoskeletal: No Tenderness to Palpation of Joints or Extremities Lymphatic: No Cervical, Supraclavicular, or Inguinal Adenopathy Neurological: Neuro grossly intact Psych/Mental Status: Normal Affect, Appropriate Microbiology Past 72 Hours 10/03/18 18:31 Blood Culture (Wb) - Right Hand Blood Culture - Final No growth in 5 days. 10/03/18 18:20 Blood Culture (Wb) - Right Wrist Blood Culture - Final No growth in 5 days. Laboratory Results 10/09/18 12:23: POC Glucose 289 H 10/09/18 15:58: POC Glucose 235 H 10/09/18 22:08: POC Glucose 273 H 10/10/18 06:38: POC Glucose 222 H 10/10/18 06:54: WBC 14.0 H, RBC 3.85 L, Hgb 9.6 L, Hct 30.6 L, MCV 79.5 L, MCH 24.9 L, MCHC 31.4 L, RDW 17.3 H, RDW Differential 48.1 H, Plt Count 265, MPV 10.2, Immature Gran % (Auto) 1.600 H, Neut % (Auto) 83.6 H, Lymph % (Auto) 8.4 L, [place] % (Auto) 4.4, Eos % (Auto) 1.9, Baso % (Auto) 0.1, Absolute Neuts (auto) 11.7 H, Absolute Lymphs (auto) 1.17, Total Counted Not Reportable 10/10/18 06:54: Sodium 139, Potassium 4.3, Chloride 110 H, Carbon Dioxide 24.0, Anion Gap 5, BUN 30 H, Creatinine 1.34 H, Estim Creat Clear Calc 34.16, Est GFR (MDRD) Af Amer 51 L, Est GFR (MDRD) Non-Af 42 L, BUN/Creatinine Ratio 22.4 H, Glucose 233 H, Calcium 8.0 L 10/10/18 06:54: PT 20.5 H, INR 1.8 10/10/18 10:59: POC Glucose 291 H Current Medications Acetaminophen (Tylenol) 500 mg PO Q6H PRN PRN PRN Reason: PAIN Last Admin: 10/07/18 07:54 Dose: 500 mg Alprazolam (Xanax) 0.5 mg PO QHS PRN PRN PRN Reason: SLEEP Last Admin: 10/09/18 23:20 Dose: 0.5 mg Amiodarone HCl (Cordarone) 200 mg PO TID [facility] Last Admin: 10/10/18 05:20 Dose: 200 mg Apixaban (Eliquis) 5 mg PO BID [facility] Last Admin: 10/10/18 09:10 Dose: 5 mg Aspirin (Aspirin, Baby) 81 mg PO DAILY@0800 [facility] Last Admin: 10/10/18 09:11 Dose: 81 mg Atorvastatin Calcium (Lipitor) 40 mg PO QHS [facility] Last Admin: 10/09/18 22:15 Dose: 40 mg Cyclobenzaprine HCl (Cyclobenzaprine Hcl) 5 mg PO TID PRN PRN PRN Reason: SPASMS Dextrose (D50w Syringe) 0 gm IV X1 PRN; Protocol PRN Reason: Hypoglycemia Glucagon () 1 mg IM .X1 PRN PRN Reason: Hypoglycemia Hydralazine HCl (Apresoline Iv) 10 mg IV Q6H PRN PRN PRN Reason: BLOOD PRESSURE ELEVATION Last Admin: 10/10/18 11:30 Dose: 10 mg Hydralazine HCl (Apresoline) 50 mg PO TID [facility] Last Admin: 10/10/18 05:20 Dose: 50 mg Sodium Chloride () 250 mls @ 15 mls/hr IV .[id number] PRN PRN Reason: SALINE FLUSH Sodium Chloride () 500 mls @ 15 mls/hr IV .[id number] PRN PRN Reason: SALINE FLUSH Piperacillin Sod/Tazobactam (Sod 3.375 gm/ Sodium Chloride) 50 mls @ 12.5 mls/hr IV Q12 [facility] Last Admin: 10/10/18 09:13 Dose: 12.5 mls/hr Insulin Glargine (Lantus (Bkc)) 10 units SC DAILY [facility] Last Admin: 10/10/18 11:00 Dose: 10 u Insulin Human Lispro (Humalog Kwikpen (Bkc)) 0 unit SC ACHS [facility]; Protocol Last Admin: 10/10/18 11:00 Dose: 4 u Labetalol HCl (Trandate) 10 mg IV Q4H PRN PRN PRN Reason: SBP>180 mmhg/HR>120 Last Admin: 10/06/18 05:01 Dose: 10 mg Metoprolol Tartrate (Lopressor (Beta Keanu)) 100 mg PO BID [facility] Last Admin: 10/10/18 09:11 Dose: 100 mg Sertraline HCl (Zoloft) 100 mg PO DAILY [facility] Last Admin: 10/10/18 09:12 Dose: 100 mg Sodium Chloride () 5 - 15 ml IV UD PRN PRN Reason: SALINE FLUSH Last Admin: 10/08/18 22:16 Dose: 10 ml Throat Lozenges (Cepacol Sore Throat Lozenge) 2 lozenge MUCOUS MEM Q2H PRN PRN PRN Reason: SORE THROAT Tolterodine Tartrate (Detrol La) 4 mg PO DAILY [facility] Last Admin: 10/10/18 09:12 Dose: 4 mg Medical Necessity - Tobacco Use Smoking Status: Never smoker Tobacco Use: Non-smoker Assessment/Plan All Active Problems (Last Reviewed 07/11/18 @ 14:55 by Dede Kasper) Atrial fibrillation (Acute) DKA (diabetic ketoacidoses) (Acute) Renal insufficiency (Acute) Hypertriglyceridemia (Acute) Abnormal mammogram of right breast (Acute) 68-year-old female admitted with a complaint of generalized malaise and weakness found to be in A. fib with RVR, DKA and having severe CRISTIAN. 1. Afib with RVR now rate and rhythm controlled. on PO amiodarone and metoprolol. Will swith to PO amiodarone 200mg bid today. cardiology on board 2D echo showed: EF of 75%, with moderately enlarged left atrium and normal right atrium; mild mitral valve stenosis, estimated RVSP of 48mmHg; mild aortic stenosis. on PO eliquis 5mg bid. for stress test and further workup once acute illness phase is over 2. Acute hypoxic respiratory failure due to community acquired pneumonia now on room air. Chest CT showed bilateral airspace disease, worse in right hemithorax, with a small right pleural effusion. on IV zosyn pulmonology on board BIPAP prn and titrate oxygen to maintain sats>90% 3. DKA resolved. A1C was 9.8 on insulin 10IU qhs; hold metformin, januvia and glimepiride for now accuchecks ACHS; ISS 4. CRISTIAN pre-renal in etiology Cr was 5.31 on admisison, is now down to 1.34 nephrology on board 5. Sepsis due to UTI and pneumonia on IV zosyn urine cultured E. coli, sensitive to ceftriaxone blood cultures showed no growth in 48 hours 6. Hyperkalemia and nonanion gap metabolic acidosis resolved. started on oral sodium bicarbonate per nephrology 7. Acute ischemic CVA NIHSS- [address] brain showed lacunar infarct in insular cortex of right temporal lobe and decreased attenuation in the posterior right temporal parietal lobe; subacute ischemia should be ruled out MRI showed suspicion for 2.9mm acute lacunar infarct in right centrum semiovale neurology didnt really think it was a stroke though. MRA of neck was normal, and MRA of head was also normal except for dominant right vertebral artery on high intensity statin and aspirin. on eliquis 5mg bid. PT/OT on board 8. Hyponatremia: resolved 9. Hypertension: poorly controlled. will add on amlodipine and HCTZ to metoprolol. on PO metoprolol. Losartan still held o/a of CRISTIAN will dc hydralazine IV hydralazine prn. 10. Urinary retention: On oxybutynin. DVT prophylaxis:on eliquis Disposition: awaiting placement Code Visit Inpatient E&M: 17007 Subs Hosp L2
--- NOTE | 2018-10-10 12:30 | PN_ITS ---
Patient Problems: Active and Suspected Problems (Last Reviewed 07/11/18 @ 14:55 by Dede Kasper) Atrial fibrillation (Acute) CVA (cerebral vascular accident) (Suspected) DKA (diabetic ketoacidoses) (Acute) Renal insufficiency (Acute) Hypertriglyceridemia (Acute) Subjective: Patient seen and examined. She has no complaints today. Review of systems otherwise negative. Labs and vitals reviewed. Vitals/I&O's: Vital Signs Temp Pulse Resp BP Pulse Ox 98.0 F 60 28 H 173/70 H 93 10/10/18 11:10 10/10/18 11:30 10/10/18 11:10 10/10/18 11:30 10/10/18 11:10 Oxygen Flow Rate (L/min) 2 Oxygen Delivery Method Nasal Cannula Weight: 244 lb 14.937 oz Body Mass Index (BMI) 40.6 Finger Stick Blood Glucose 158 Intake and Output for Last 24 Hours 10/08/18 10/09/18 10/10/18 23:59 23:59 23:59 Intake Total 1192.1 / 1192.1 1201 / 1201 983.5 / 983.5 Output Total 1000 / 1000 600 / 600 300 / 300 Balance 192.1 / 192.1 601 / 601 683.5 / 683.5 General: Alert, Cooperative HEENT: Atraumatic, PERRLA, Normocephalic Oral: No Gingival or Mucosal Lesions/ Ulcerations Neck: Supple, No Nodes, Trachea Midline Lungs: No rhonchi, No wheeze, Diminished, Tachypneic, on room air. Cardiovascular: Normal S1, Normal S2, No murmurs, Abdomen: Bowel Sounds Present, Soft, Non Tender, Obese Extremities: No clubbing, No cyanosis, No edema Skin: - -no rash or ulcerations Musculoskeletal: No Tenderness to Palpation of Joints or Extremities Lymphatic: No Cervical, Supraclavicular, or Inguinal Adenopathy Neurological: Neuro grossly intact Psych/Mental Status: Normal Affect, Appropriate Microbiology Past 72 Hours 10/03/18 18:31 Blood Culture (Wb) - Right Hand Blood Culture - Final No growth in 5 days. 10/03/18 18:20 Blood Culture (Wb) - Right Wrist Blood Culture - Final No growth in 5 days. Laboratory Results 10/09/18 12:23: POC Glucose 289 H 10/09/18 15:58: POC Glucose 235 H 10/09/18 22:08: POC Glucose 273 H 10/10/18 06:38: POC Glucose 222 H 10/10/18 06:54: WBC 14.0 H, RBC 3.85 L, Hgb 9.6 L, Hct 30.6 L, MCV 79.5 L, MCH 24.9 L, MCHC 31.4 L, RDW 17.3 H, RDW Differential 48.1 H, Plt Count 265, MPV 10.2, Immature Gran % (Auto) 1.600 H, Neut % (Auto) 83.6 H, Lymph % (Auto) 8.4 L , [place] % (Auto) 4.4, Eos % (Auto) 1.9, Baso % (Auto) 0.1, Absolute Neuts (auto) 11.7 H, Absolute Lymphs (auto) 1.17, Total Counted Not Reportable 10/10/18 06:54: Sodium 139, Potassium 4.3, Chloride 110 H, Carbon Dioxide 24.0, Anion Gap 5, BUN 30 H, Creatinine 1.34 H, Estim Creat Clear Calc 34.16, Est GFR (MDRD) Af Amer 51 L, Est GFR (MDRD) Non-Af 42 L, BUN/Creatinine Ratio 22.4 H, Glucose 233 H, Calcium 8.0 L 10/10/18 06:54: PT 20.5 H, INR 1.8 10/10/18 10:59: POC Glucose 291 H Current Medications Acetaminophen (Tylenol) 500 mg PO Q6H PRN PRN PRN Reason: PAIN Last Admin: 10/07/18 07:54 Dose: 500 mg Alprazolam (Xanax) 0.5 mg PO QHS PRN PRN PRN Reason: SLEEP Last Admin: 10/09/18 23:20 Dose: 0.5 mg Amiodarone HCl (Cordarone) 200 mg PO TID [facility] Last Admin: 10/10/18 05:20 Dose: 200 mg Apixaban (Eliquis) 5 mg PO BID [facility] Last Admin: 10/10/18 09:10 Dose: 5 mg Aspirin (Aspirin, Baby) 81 mg PO DAILY@0800 [facility] Last Admin: 10/10/18 09:11 Dose: 81 mg Atorvastatin Calcium (Lipitor) 40 mg PO QHS [facility] Last Admin: 10/09/18 22:15 Dose: 40 mg Cyclobenzaprine HCl (Cyclobenzaprine Hcl) 5 mg PO TID PRN PRN PRN Reason: SPASMS Dextrose (D50w Syringe) 0 gm IV X1 PRN; Protocol PRN Reason: Hypoglycemia Glucagon () 1 mg IM .X1 PRN PRN Reason: Hypoglycemia Hydralazine HCl (Apresoline Iv) 10 mg IV Q6H PRN PRN PRN Reason: BLOOD PRESSURE ELEVATION Last Admin: 10/10/18 11:30 Dose: 10 mg Hydralazine HCl (Apresoline) 50 mg PO TID [facility] Last Admin: 10/10/18 05:20 Dose: 50 mg Sodium Chloride () 250 mls @ 15 mls/hr IV .[id number] PRN PRN Reason: SALINE FLUSH Sodium Chloride () 500 mls @ 15 mls/hr IV .[id number] PRN PRN Reason: SALINE FLUSH Piperacillin Sod/Tazobactam (Sod 3.375 gm/ Sodium Chloride) 50 mls @ 12.5 mls/hr IV Q12 [facility] Last Admin: 10/10/18 09:13 Dose: 12.5 mls/hr Insulin Glargine (Lantus (Bkc)) 10 units SC DAILY [facility] Last Admin: 10/10/18 11:00 Dose: 10 u Insulin Human Lispro (Humalog Kwikpen (Bkc)) 0 unit SC ACHS [facility]; Protocol Last Admin: 10/10/18 11:00 Dose: 4 u Labetalol HCl (Trandate) 10 mg IV Q4H PRN PRN PRN Reason: SBP>180 mmhg/HR>120 Last Admin: 10/06/18 05:01 Dose: 10 mg Metoprolol Tartrate (Lopressor (Beta Keanu)) 100 mg PO BID [facility] Last Admin: 10/10/18 09:11 Dose: 100 mg Sertraline HCl (Zoloft) 100 mg PO DAILY [facility] Last Admin: 10/10/18 09:12 Dose: 100 mg Sodium Chloride () 5 - 15 ml IV UD PRN PRN Reason: SALINE FLUSH Last Admin: 10/08/18 22:16 Dose: 10 ml Throat Lozenges (Cepacol Sore Throat Lozenge) 2 lozenge MUCOUS MEM Q2H PRN PRN PRN Reason: SORE THROAT Tolterodine Tartrate (Detrol La) 4 mg PO DAILY [facility] Last Admin: 10/10/18 09:12 Dose: 4 mg Medical Necessity - Tobacco Use Smoking Status: Never smoker Tobacco Use: Non-smoker Assessment/Plan All Active Problems (Last Reviewed 07/11/18 @ 14:55 by Dede Kasper) Atrial fibrillation (Acute) DKA (diabetic ketoacidoses) (Acute) Renal insufficiency (Acute) Hypertriglyceridemia (Acute) Abnormal mammogram of right breast (Acute) 68-year-old female admitted with a complaint of generalized malaise and weakness found to be in A. fib with RVR, DKA and having severe CRISTIAN. 1. Afib with RVR * now rate and rhythm controlled. * on PO amiodarone and metoprolol. Will swith to PO amiodarone 200mg bid today. * cardiology on board * 2D echo showed: EF of 75%, with moderately enlarged left atrium and normal right atrium; mild mitral valve stenosis, estimated RVSP of 48mmHg; mild aortic stenosis. * on PO eliquis 5mg bid. * for stress test and further workup once acute illness phase is over * 2. Acute hypoxic respiratory failure due to community acquired pneumonia * now on room air. * Chest CT showed bilateral airspace disease, worse in right hemithorax, with a small right pleural effusion. * on IV zosyn * pulmonology on board * BIPAP prn and titrate oxygen to maintain sats>90% * 3. DKA * resolved. * A1C was 9.8 * on insulin 10IU qhs; hold metformin, januvia and glimepiride for now * accuchecks ACHS; ISS * 4. CRISTIAN * pre-renal in etiology * Cr was 5.31 on admisison, is now down to 1.34 * nephrology on board * * 5. Sepsis due to UTI and pneumonia * on IV zosyn * urine cultured E. coli, sensitive to ceftriaxone * blood cultures showed no growth in 48 hours * 6. Hyperkalemia and nonanion gap metabolic acidosis * resolved. * started on oral sodium bicarbonate per nephrology * 7. Acute ischemic CVA * NIHSS- 1 on admission * CT brain showed lacunar infarct in insular cortex of right temporal lobe and decreased attenuation in the posterior right temporal parietal lobe; subacute ischemia should be ruled out * MRI showed suspicion for 2.9mm acute lacunar infarct in right centrum semiovale * neurology didnt really think it was a stroke though. * MRA of neck was normal, and MRA of head was also normal except for dominant right vertebral artery * on high intensity statin and aspirin. * on eliquis 5mg bid. * PT/OT on board * 8. Hyponatremia: * resolved * 9. Hypertension: * poorly controlled. will add on amlodipine and HCTZ to metoprolol. * on PO metoprolol. Losartan still held o/a of CRISTIAN * will dc hydralazine * IV hydralazine prn. 10. Urinary retention: On oxybutynin. DVT prophylaxis:on eliquis Disposition: awaiting placement Code Visit Inpatient E&M: [id number] Subs Hosp L2
[2018-10-10] MEDS: amLODIPine 10 MG Tablet PO (13:35)
[2018-10-10] MEDS: hydroCHLOROthiazide 25 MG Tablet PO (13:35)
--- NOTE | 2018-10-10 14:47 | TREXTCAR_ITS ---
- Diet 10/03/18 20:48 Diabetic [Diet: Calorie Controlled] Food consistency:: Mechanical Soft/Ground Liquid Consistency:: Regular/Thin Is pt able to select menu?: No Diet Comments: seated upright at 90 degrees, oral care after meals How many daily calories?: 1800 calorie - Routine Orders/Code Status Enema Type: Fleetz Enema Frequency: Daily PRN Suppository Type: Dulcolax 10mg Suppository Frequency: Daily PRN O2 Liters per Minute: 2 O2 Frequency: Continuous Keep PO Greater than or Equal to (%): 90 Code Status: Full Code - Wound(s) rt breast Wound Type: Abrasion bilat legs Wound Type: Abrasion - Therapies Physical Therapy: Eval and Treat Occupational Therapy: Eval and Treat - Allergies/Procedures Done in Hospital Allergies/Adverse Reactions: Allergies fosinopril [From Monopril] Allergy (Unknown, Verified 10/03/18 14:25) unknown pioglitazone Adverse Reaction (Verified 10/03/18 14:25) Other Procedures: 2-D Echocardiogram - Type of Care/Length of Stay Estimated LOS: Convalescent Care Less Than 30 days Type of Care Needed: Skilled Rehab Potential: Fair Prognosis: Fair - Additional Orders/Day of Discharge Day of Discharge: 10/10/18 - Dietary and Speech Recommendations Dietitian Recommendations/Changes: Rec diet change to 1600 calorie, cardiac diet. Speech Linguistic Eval Summary: The patient is a 68 year old female with past medical history significant for abnormal mammogram of right breast, arthritis, depression with anxiety, diabetes, sleep apnea, and hypertension. Pt presneted to the ED on 10/03/2018 with complaint of generalized malaise and back pain, worsening over the past 3 weeks, as well as as well as generalized pain for the past 3 weeks which had worsened recently along w/ new onset right sided weakness. Pt has chronic right sided weakness w/ worsening at this time. Brain CT 10/03/2018 reported findings suggestive of a lacunar infarct in the insular cortex of the right temporal lobe. Decreased attenuation in the posterior right temporal parietal lobe. Subacute ischemia should BE ruled out. Chest x-ray 10/03/2018 revealed no acute cardiopulmonary disease. Brain MRI 10/04/18 reported suspicion of a 2.9 mm acute lacunar infarction within the right centrum semiovale. Patient does not wear O2 baseline. Only oxygenating at 87% on 6L via nasal cannula, increased to 89% w/ 10L via high flow nasal cannula. RN assessed lung sounds during this evalution w/ diminished lung sounds on the right and crackles in the left base. Informal cognitive-lingusitic evaluation completed at bedside. Friend present for evaluation . Patient and friend both report that prior to admisison she was functionally independent - driving, managing own meds/finances w/out difficulty and that speech was clear and intelligible until approx 1 week ago at which time it has progressively worsened. This patinet presents w/ expressive and resceptive language deficits characterized by deficits in speech intelligibility - moderate dysarthria, slurred, imprecise speech w/ slow rate; reading - word identification and reading comrehension w/ word substitutions/omissions, denies changes in vision, no neglect or field cuts identified; memory - unable to recall multiword sequences, onlt able to accurately repeat back 5/18 details from a story immediately after hearing it w/ substitutions of critical elements; word retrieval - only able to name 5 items in a concrete category, picture naming 100% w/ one self corrected error. Patinet and friend both agree that all deficits identifed are new and in lisa contrast to baseline functioning. This patient requires skilled ST intervention targeting the above listed deficits w/ the goal of improving cognitive- lingusitic function for return to home vat the higest level of independet functioning possible. - Follow Up Care Primary Care Physician: Lesley Yoder MD [Primary Care Provider] - Please follow up with your Primary Care Physician in: ONE WEEK Please Follow Up With: Dave Ortiz MD When: ONE WEEK Please Follow Up With: Venkat Wesley MD When: ONE WEEK Please Follow Up With: Eddie Thorpe MD When: 2-3 WEEKS Please Follow Up With: Chantel Cordero MD When: 2-3 WEEKS
--- NOTE | 2018-10-10 14:47 | PCM.DC.SUM ---
Discharge Date and Diagnosis Date of Admission: 10/03/18 Date of Discharge: 10/10/18 - Primary Discharge Diagnosis Active and Suspected Problems (Last Reviewed 07/11/18 @ 14:55 by Dede Kasper) Atrial fibrillation with RVR (Acute) CVA (cerebral vascular accident) (Suspected) DKA (diabetic ketoacidoses) (Acute) CRISTIAN Hypertriglyceridemia (Acute) acute hypoxic respiratory failure community acquired pneumonia sepsis due to community acquired pneumonia and UTI - Secondary Discharge Diagnosis Chronic Problems (Last Reviewed 07/11/18 @ 14:55 by Dede Kasper) HTN (hypertension) (Chronic) Diabetes mellitus (Chronic) Hospital Course and Treatment Imaging Results: Diagnostic Data Brain CT 10/03/18 14:45 IMPRESSION: Findings suggestive of a lacunar infarct in the insular cortex of the right temporal lobe. Decreased attenuation in the posterior right temporal parietal lobe. Subacute ischemia should BE ruled out. Electronically Signed: Jordan Jones, at 15:09 EDT , Service support , Renal Ultrasound 10/03/18 17:59 IMPRESSION: Normal ultrasound of the kidneys. Electronically Signed: Sridhar Marinelli DO at 23:20 EDT Tel [phone], Service support , Brain MRI 10/04/18 08:30 IMPRESSION: Suspicion of a 2.9 mm acute lacunar infarction within the right centrum semiovale Electronically Signed: Raffy Pineda MD at 2:17 EDT Tel , Service support , Head MRA 10/04/18 08:30 IMPRESSION: Normal MRA of the head except for a dominant right vertebral artery Electronically Signed: Raffy Pineda MD at 2:21 EDT Tel , Service support , Neck MRA 10/04/18 08:30 IMPRESSION: Normal bilateral cervical carotid and vertebral arteries. Electronically Signed: Raffy Pineda MD at 2:19 EDT Tel , Service support , Cervical Spine MRI 10/05/18 13:05 IMPRESSION: No abnormal cervical cord signal Slightly increased T3-4 intervertebral disc disease with mild ventral cord flattening Stable C3-C7 anterior surgical fixation with endplate fusion Stable multilevel posterior osseous ridging with mild central canal narrowing Stable multilevel severe neural foraminal narrowing Stable osseous degenerative changes Electronically Signed: Wale Bee DO at 11:40 EDT Tel , Service support , Chest X-Ray 10/05/18 13:51 IMPRESSION: Multifocal airspace opacities predominating at the right perihilar region (suspected asymmetric pulmonary edema versus less likely infection) Mild cardiomegaly Degenerative/postsurgical changes, as above Electronically Signed: Wale Bee DO at 14:32 EDT Tel , Service support , Lumbar Spine MRI 10/05/18 13:52 IMPRESSION: No acute fracture or dislocation Extensive multilevel intervertebral disc disease without significant central canal narrowing Multilevel neural foraminal narrowing with impingement of the right L2, right L3 and bilateral L4 nerve roots Slightly exaggerated lumbar lordosis with minimal levoscoliosis Multilevel osseous degenerative changes with multilevel laminectomies Electronically Signed: Wale Bee DO at 11:51 EDT Tel , Service support , Chest CT 10/06/18 07:38 IMPRESSION: Bilateral airspace disease worse in the right hemithorax with a small right pleural effusion. Electronically Signed: Jordan Jones, at 9:28 EDT , Service support , Operations: None Procedures: 2-D Echocardiogram Summary of Care Provided: The patient is a 68 year old F with past medical history as listed. She was admitted through the ED on 10/03/2018 with complaint of generalized malaise and back pain as well as generalized pain for the past 3 weeks which had worsened recently. Patient states that she had seen her primary care doctor and had consider urgent care and emergency room for the back pain and generalized malaise. Back x-ray was done but she was told there was nothing wrong with it. She went home and felt unsteady on her feet and has had several falls recently. Symptoms were however persisting and she started feeling some weakness in her right side though she does have chronic baseline right-sided weakness. She therefore decided to come into the ED today. On arrival in the ED, she was found to be in A. fib with RVR with heart rate in the 160s the patient denied ever having any palpitations. Labs done showed sodium of 129 with bicarb of 19 and anion gap of 15. Creatinine was 5.31 with a baseline creatinine of less than 1 just a few days ago. Glucose was 421 and CBC showed white cell count of 14. Brain CT showed findings suggestive of a lacunar infarct in the insular cortex of the right temporal lobe with decreased attenuation in the right posterior temporal parietal lobe. She spontaneously converted to sinus rhythm was in the ED. She was admitted to be managed for new onset CRISTIAN, DKA and acute ischemic stroke. She was also noted to be in A. fib with RVR and as positive SIRS criteria as well. Patient also had hyponatremia was thought to be due to pseudohyponatremia from hyperglycemia. Patient was hydrated with IV fluids and started on insulin drip. Gap subsequently closed. And she was transitioned to subcu insulin. Her renal ultrasound was unremarkable. Patient was requiring oxygen to maintain saturation. Neurology, pai gow dealer and cardiology were consulted. Patient stay was further complicated by acute hypoxic respiratory failure due to community-acquired pneumonia. She also developed UTI and was started on IV ceftriaxone. Antibiotics are to be broadened to IV Zosyn as shortness of breath was not resolving she was requiring increasing amounts of oxygen. Patient had an MRI brain which showed suspicion for 2.9 mm acute lacunar infarction within the right centrum semiovale; however per neurologist review there were no very convinced that patient did have a stroke. She also had MRI of the cervical spine which was unremarkable and MRI of the lumbar spine which showed multilevel osseous degenerative changes with multilevel laminectomies. Patient gradually improved. Her stay was complicated by recurrent A. fib with RVR requiring amiodarone drip. She was eventually transitioned to p.o. amiodarone as well as metoprolol. Echo done showed EF of 75% with mild mitral valve stenosis and mild aortic stenosis. Creatinine which was about 5 on admission gradually trended down and was 1.34 at time of discharge. She also developed hyperkalemia non-anion gap metabolic acidosis which was thought to be due to CRISTIAN. Hyperkalemia resolved with administration of Kayexalate. Due to persistent non-gap acidosis, nephrology was consulted and started patient on oral bicarb. Patient improved significantly and on day of discharge, was stable on room air. However with exertion, she required 2 L of oxygen to maintain saturation above 90%. Walking pulse ox done showed that she required 2 L of oxygen and to maintain saturation above 90% on room air she desaturated to 89% with ambulation. Blood pressure was also poorly controlled requiring starting of amlodipine and hydrochlorothiazide in addition to metoprolol. Patient remained stable and was discharged to a half-way on 10/02/1818 with a prescription for p.o. Levaquin. She is to follow-up with her primary care doctor, cardiology and neurology as well as nephrology. She was also started on heparin drip for A. fib, and this was transitioned to p.o. Eliquis 5 mg twice daily for stroke prophylaxis for A. fib. Patient seen and examined prior to discharge. She had no complaints and felt well. Shortness of breath had resolved. Review of systems otherwise negative. Labs and vitals reviewed. Home medications reviewed and reconciled. She is to take p.o. amiodarone 200 mg twice daily for the next 2 weeks and then transition to p.o. amiodarone 200 mg daily subsequently. o/e: Vital Signs Height 5 ft 3 in Weight: 244 lb 14.937 oz Weight in Pounds 244.9 lbs Pulse Ox [AMBULATION with 93 Oxygen] Pulse Ox [AMBULATING on Room 89 Air] Pulse Ox [At REST on Room Air] 92 Pulse Ox 95 Temperature 97.8 F Pulse Rate 62 Respiratory Rate 20 Blood Pressure [BP] 169/86 Blood Pressure 143/61 Blood Pressure Position [BP] Semi-Fowlers Blood Pressure Position Supine General: Alert, Cooperative HEENT: Atraumatic, PERRLA, Normocephalic Oral: No Gingival or Mucosal Lesions/ Ulcerations Neck: Supple, No Nodes, Trachea Midline Lungs: No rhonchi, No wheeze, Diminished, Tachypneic, on room air. Cardiovascular: Normal S1, Normal S2, No murmurs, Abdomen: Bowel Sounds Present, Soft, Non Tender, Obese Extremities: No clubbing, No cyanosis, No edema Skin: - -no rash or ulcerations Musculoskeletal: No Tenderness to Palpation of Joints or Extremities Lymphatic: No Cervical, Supraclavicular, or Inguinal Adenopathy Neurological: Neuro grossly intact Psych/Mental Status: Normal Affect, Appropriate Plan as above. - Physical Exam Vital Signs Temp Pulse Resp BP Pulse Ox 97.8 F 51 L 20 H 143/61 H 92 10/10/18 13:30 10/10/18 13:30 10/10/18 13:30 10/10/18 13:30 10/10/18 14:00 Oxygen Flow Rate (L/min) [ 2 AMBULATION with Oxygen] Oxygen Flow Rate (L/min) 2 Oxygen Delivery Method CPAP Weight: 244 lb 14.937 oz Body Mass Index (BMI) 40.6 Finger Stick Blood Glucose 158 Intake and Output for Last 24 Hours 10/08/18 10/09/18 10/10/18 23:59 23:59 23:59 Intake Total 1192.1 / 1192.1 1201 / 1201 1137.1 / 1137.1 Output Total 1000 / 1000 600 / 600 300 / 300 Balance 192.1 / 192.1 601 / 601 837.1 / 837.1 Microbiology Past 72 Hours 10/03/18 18:31 Blood Culture - Final Blood Culture (Wb) - Right Hand No growth in 5 days. 10/03/18 18:20 Blood Culture - Final Blood Culture (Wb) - Right Wrist No growth in 5 days. Laboratory Tests Past 24 Hrs 10/10/18 10/10/18 10/10/18 06:54 06:54 06:54 WBC 14.0 H RBC 3.85 L Hgb 9.6 L Hct 30.6 L MCV 79.5 L MCH 24.9 L MCHC 31.4 L RDW 17.3 H RDW Differential 48.1 H Plt Count 265 MPV 10.2 Immature Gran % (Auto) 1.600 H Neut % (Auto) 83.6 H Lymph % (Auto) 8.4 L Simpson % (Auto) 4.4 Eos % (Auto) 1.9 Baso % (Auto) 0.1 Absolute Neuts (auto) 11.7 H Absolute Lymphs (auto) 1.17 Total Counted Not Reportable PT 20.5 H INR 1.8 Sodium 139 Potassium 4.3 Chloride 110 H Carbon Dioxide 24.0 Anion Gap 5 BUN 30 H Creatinine 1.34 H Estim Creat Clear Calc 34.16 Est GFR (MDRD) Af Amer 51 L Est GFR (MDRD) Non-Af 42 L BUN/Creatinine Ratio 22.4 H Glucose 233 H Calcium 8.0 L POC Glucose 10/10/18 10/10/18 10/09/18 10:59 06:38 22:08 POC Glucose 291 H 222 H 273 H 10/09/18 15:58 POC Glucose 235 H Discharge Diet: Low fat/ Low Cholesterol Discharge Activity: Return to Normal Activity Weight Bearing Status: Weight bearing as tolerated Call your doctor if you observe: Fever of 101 or Higher, Shortness of breath, Dizziness, Fainting spells, Swelling in the ankles, Chest pain Home Medications: Medications to take at Discharge aspirin 81 mg chewable tablet 81 mg PO DAILY 07/11/18 glimepiride 4 mg tablet 4 mg PO BID tab 07/11/18 losartan 50 mg tablet 50 mg PO BID tab 07/11/18 metformin 1,000 mg tablet 1,000 mg PO BID 07/11/18 oxybutynin chloride ER 15 mg tablet,extended release 24 hr 15 mg PO DAILY 07/11/18 sertraline 100 mg tablet 100 mg PO DAILY 07/11/18 sitagliptin 100 mg tablet 100 mg PO DAILY 07/11/18 Acetaminophen [Tylenol] 500 mg PO Q6H PRN PRN 10/03/18 Cyclobenzaprine HCl 5 - 10 mg PO TID PRN PRN 10/03/18 Metoprolol Tartrate [Lopressor (beta fritz)] 25 mg PO BID 10/03/18 Oxycodone HCl/Acetaminophen [Oxycodone-Acetaminophen 5-325] 1 tab PO Q6H PRN PRN 10/03/18 Simvastatin [Zocor] 20 mg PO QHS 10/03/18 Amiodarone HCl [Cordarone] 200 mg PO BID #60 tab 10/10/18 Amlodipine [Norvasc] 10 mg PO DAILY #30 tab 10/10/18 Apixaban [Eliquis] 5 mg PO BID #60 tab 10/10/18 Hydrochlorothiazide [Hctz] 25 mg PO DAILY #30 tab 10/10/18 levoFLOXacin tablet [Levaquin tablet] 750 mg PO DAILY #5 tab 10/10/18 Following Prescrptions Were Given to Patient: Amlodipine [Norvasc] 10 mg PO DAILY #30 tab Hydrochlorothiazide [Hctz] 25 mg PO DAILY #30 tab levoFLOXacin tablet [Levaquin tablet] 750 mg PO DAILY #5 tab Amiodarone HCl [Cordarone] 200 mg PO BID #60 tab Apixaban [Eliquis] 5 mg PO BID #60 tab Primary Care Physician: Lesley Yoder MD [Primary Care Provider] - Please follow up with your Primary Care Physician in: ONE WEEK Please Follow Up With: Dave Ortiz MD When: ONE WEEK Please Follow Up With: Venkat Wesley MD When: ONE WEEK Please Follow Up With: Eddie Thorpe MD When: 2-3 WEEKS Please Follow Up With: Chantel Cordero MD When: 2-3 WEEKS Disposition: [facility] facility Minutes spent on discharge:: 45 Patient Condition:: Stable Medical Necessity - Tobacco Use Smoking Status: Never smoker Tobacco Use: Non-smoker Meaningful Use Info Meaningful Use Diagnoses (Choose all that apply): Ischemic CVA - CVA Therapy Assessed for PT,OT and/or ST?: Yes - Ischemic Stroke Antithrombotic order at d/c?: Yes Dx of Atrial fib/flutter?: Yes Anticoagulant at discharge?: Yes Statins at discharge?: Yes Primary Dx Acute Ischemic CVA?: Yes IV tPA ordered during stay?: No Reason IV t-PA not ordered: Procedure not Indicated Code Visit Inpatient E&M: 03620 Disch Hosp
--- NOTE | 2018-10-10 14:53 | NURSING ---
Called report to Parul GRIMES in TCU, RN requesting IV to be left in upon transfer
--- NOTE | 2018-10-10 15:05 | CASEMGMT ---
Precert attained, pt can go to TCU today. SW let pt know, she is agreeable, will let her family know. SW explained will let SW in TCU know about completing POA/LW forms, as pt has visitors at present. Pt states understanding. SW faxed orders to TCU, let SW in TCU know pt may want to complete LW/POA forms. LONG Alfaro
--- NOTE | 2018-10-10 15:06 | PCM.PN.CARD ---
Subjectve: The patient appears awake and alert with no new acute complaints. Objective: Vital Signs Temp Pulse Resp BP Pulse Ox 97.8 F 62 20 H 143/61 H 92 10/10/18 13:30 10/10/18 14:58 10/10/18 13:30 10/10/18 13:30 10/10/18 14:00 Oxygen Flow Rate (L/min) [ 2 AMBULATION with Oxygen] Oxygen Flow Rate (L/min) 2 Oxygen Delivery Method CPAP Weight: 244 lb 14.937 oz Body Mass Index (BMI) 40.6 Finger Stick Blood Glucose 158 Intake and Output for Last 24 Hours 10/08/18 10/09/18 10/10/18 23:59 23:59 23:59 Intake Total 1192.1 / 1192.1 1201 / 1201 1137.1 / 1137.1 Output Total 1000 / 1000 600 / 600 300 / 300 Balance 192.1 / 192.1 601 / 601 837.1 / 837.1 General: Awake, Alert, Oriented x 3, Cooperative, No Acute Distress HEENT: Atraumatic, Normocephalic, PERRL, EOMI, Sclera Non Icteric Oral: Moist Mucosa Neck: Supple, Good ROM, No JVD Lungs: Clear to auscultation Cardiovascular: Regular Rhythm, Normal S1, Normal S2 Abdomen: Bowel Sounds Present, Soft, Non Tender Extremities: Trace RLE Edema, Trace LLE Edema Psych/Mental Status: Appropriate 10/10/18 06:54: WBC 14.0 H, RBC 3.85 L, Hgb 9.6 L, Hct 30.6 L, MCV 79.5 L, MCH 24.9 L, MCHC 31.4 L, RDW 17.3 H, RDW Differential 48.1 H, Plt Count 265, MPV 10.2, Immature Gran % (Auto) 1.600 H, Neut % (Auto) 83.6 H, Lymph % (Auto) 8.4 L, Cannon % (Auto) 4.4, Eos % (Auto) 1.9, Baso % (Auto) 0.1, Absolute Neuts (auto) 11.7 H, Total Counted Not Reportable 10/10/18 06:54: Sodium 139, Potassium 4.3, Chloride 110 H, Carbon Dioxide 24.0, Anion Gap 5, BUN 30 H, Creatinine 1.34 H, Est GFR (MDRD) Af Amer 51 L, Est GFR (MDRD) Non-Af 42 L, BUN/Creatinine Ratio 22.4 H, Glucose 233 H, Calcium 8.0 L 10/10/18 06:54: PT 20.5 H, INR 1.8 Rhythm: EKG: ECHO: Stress Test: Cardiac Cath: PCI: CT Surgery: Holter monitor: EPS: PPM: CXR: Chest CT Scan: Medical Necessity - Tobacco Use Smoking Status: Never smoker Tobacco Use: Non-smoker Assessment/Plan 1. Atrial fibrillation with rapid ventricular response The patient appears to be remaining in sinus rhythm at this time. The plan will be to continue medical therapy with rate control, antiarrhythmic therapy, and anticoagulant therapy. 2. Hypertension She states she has had a long-standing history of hypertension. She notes her blood pressure has been somewhat challenging to control. She will continue medical therapy as deemed appropriate per neurology recommendations in light of her recent CVA. 3. Hypertriglyceridemia Her triglycerides are markedly elevated. This may be secondary to her diabetes mellitus. Thus at the moment attempt is being made to bring her hyperglycemia under better control. Her lipids will need to be followed. She may need lipid-lowering therapy. 4. Diabetes mellitus She will continue under the care of internal medicine. 5. DKA She has a history of DKA. She is being evaluated and cared for by internal medicine at this time. 6. Acute renal insufficiency Her Cr level is somewhat improved. This may be secondary to her hyperglycemia, etc. She will continue medical management deemed appropriate per internal medicine. 7. CVA She will continue evaluation care per internal medicine and neurology. Overall, the patient will continue medical therapy and recuperate in the TCU with future pending cardiovascular evaluation. Comment: The patient's case has been discussed reviewed with the patient and the [facility] hospitalist staff. This note was generated with [employer] dictation software. It may contain incorrect words, spelling, and punctuation that were not noted in checking the note before signing.
== END 2018-10-10 16:23 | disposition skilled nursing facility (03) | DRG 871 ==
LOC: ED 14:50 → ICU 16:59 → PCU 10-05 06:58
PROVIDERS: Internal Medicine; Internal Medicine Cardiovascular Disease; Internal Medicine Critical Care Medicine; Admitting Provider Student in an Organized Health Care Education/Training Program; Emergency Provider Emergency Medicine; Family Provider Internal Medicine; PCP Internal Medicine; Visit Provider Student in an Organized Health Care Education/Training Program
DX: A41.9 Sepsis, unspecified organism (principal); E11.10 Type 2 diabetes mellitus with ketoacidosis without coma; J18.9 Pneumonia, unspecified organism; J96.01 Acute respiratory failure with hypoxia; N17.9 Acute kidney failure, unspecified; E87.1 Hypo-osmolality and hyponatremia; Z68.41 Body mass index [BMI] 40.0-44.9, adult; I48.0 Paroxysmal atrial fibrillation; R47.1 Dysarthria and anarthria; E87.5 Hyperkalemia; N30.90 Cystitis, unspecified without hematuria; I10 Essential (primary) hypertension; F41.8 Other specified anxiety disorders; M19.90 Unspecified osteoarthritis, unspecified site; G47.33 Obstructive sleep apnea (adult) (pediatric); E78.5 Hyperlipidemia, unspecified; E66.9 Obesity, unspecified; D50.9 Iron deficiency anemia, unspecified; Z71.3 Dietary counseling and surveillance; G89.29 Other chronic pain; B96.20 Unspecified Escherichia coli [E. coli] as the cause of diseases classified elsewhere
CPT/HCPCS: 36415; 36600; 70450; 70544; 70547; 70551; 71045; 71250; 72141; 72148; 76770; 80048; 80053; 80061; 81002; 82009; 82550; 82570; 82803; 82962; 83036; 83605; 83735; 83880; 84100; 84300; 84484; 85025; 85027; 85610; 85730; 87040; 87077; 87086; 87088; 87186; 87449; 87641; 92507; 92523; 92526; 92610; 93005; 93306; 94660; 94667; 94668; 97116; 97163; 97166; 97530; 97535; 99285; J7030; J7040; Q9957; A4216; J3490

== ENCOUNTER 2018-10-10 16:45 | Inpatient (IN) | payer MEDICARE, SELFPAY ==
[2018-10-05 17:00] VITALS: BMI 40.6
[2018-10-10 17:07] VITALS: BP 180/74; PULSE 68; RESP 18; TEMP 36.6
--- NOTE | 2018-10-10 17:11 | NURSING ---
Patient admitted to room 14 from PCU via bed, oriented to room and call light system explained.
--- NOTE | 2018-10-10 20:57 | PCM.HP.STD ---
Problem List (1) Back pain Status: Acute (2) Atrial fibrillation with rapid ventricular response Status: Acute (3) Urinary tract infection Status: Acute (4) Acidosis Status: Acute (5) Acute kidney injury Status: Acute (6) Osteoarthritis Status: Chronic (7) Depression Status: Chronic (8) Sleep apnea Status: Chronic (9) Overactive bladder Status: Chronic (10) Hyperlipidemia Status: Chronic (11) HTN (hypertension) Status: Chronic (12) Diabetes mellitus Status: Chronic (13) DKA (diabetic ketoacidoses) Status: Acute History of Present Illness Date of Admission: 10/10/18 Chief Complaint: Here for rehabilitation, strengthening, prior to discharge home alone. The patient is a 68 year old Female with below past medical history presented to [facility] Emergency Department 10/03/2018 with back pain. 10/03/2018 CT brain right temporal lobe lacunar infarct. 10/03/2018 EKG Atrial fibrillation with rapid ventricular response, nonspecific ST&T wave abnormality. Low Back Pain x 2 weeks, dull pain. Right leg numb x 3 weeks. Troponin okay, Sodium 129, Glucose 413, K 4.6. Chloride 95, Bicarb 19, Cr 5.31, INR 1.4. WBC 14, Hemoglobin 11.3, Hematocrit 34.2. IV Fluids, insulin drip, converted to sinus rhythm spontaneously. Not TPA candidate. 10/03/2018 Admit to Hospital. Rate control for atrial fibrillation with rapid ventricular response. IV Fluids, insulin for DKA. Evaluation for stroke. 10/04/2018 Echo EF 75% Right ventricular systolic pressure 48mm HG. Mild pulmonary hypertension. Mild Aortic Stenosis. 10/04/2018 MRI brain right sided stroke. 10/05/2018 MRA head normal. 10/05/2018 MRA neck normal. 10/05/2018 MRI cervical spine, Increase T3-4 disc, cord flattening. 10/05/2018 MRI lumbar spine, disc disease without stenosis. 10/06/2018 CT chest bilateral airspace disease, worse on right. Amiodarone drip for atrial fibrillation with RVR. Stroke ruled out per Neurology. IV Zosyn, BiPAP for pneumonia. DKA resolved. Acute kidney injury improved, but not at baseline. IV Zosyn for UTI. Acute kidney injury secondary to prerenal azotemia, post renal obstruction. Cr improved to 1.34. Hyperkalemia resolved with Kayexalate. Oral Bicarb for non gap acidosis. Amlodipine, HCTZ added to Metoprolol for improved blood pressure control. Eliquis 5MG BID for atrial fibrillation. 10/10/2018 Admit to TCU with debility, here for rehabilitation, strengthening, prior to discharge home alone. Past Medical History Past Medical History (Chronic Problems): Chronic Problems (Last Reviewed 07/11/18 @ 14:55 by Dede Kasper) HTN (hypertension) (Chronic) Diabetes mellitus (Chronic) Osteoarthritis (Chronic) Depression (Chronic) Sleep apnea (Chronic) Overactive bladder (Chronic) Hyperlipidemia (Chronic) Medical History: Medical History (Last Reviewed 07/11/18 @ 14:55 by Dede Kasper) Abnormal mammogram of right breast (Acute) R92.8 Abnormal mammogram of right breast R92.8 Arthritis M19.90 Depression with anxiety F41.8 Diabetes E11.9 Sleep apnea G47.30 Hypertension I10 Allergies fosinopril [From Monopril] Allergy (Unknown, Verified 10/03/18 14:25) unknown pioglitazone Adverse Reaction (Verified 10/03/18 14:25) Other Home Medications: Ambulatory Orders Medication Instructions Recorded aspirin 81 mg chewable tablet 81 mg PO DAILY 07/11/18 glimepiride 4 mg tablet 4 mg PO BID tab 07/11/18 losartan 50 mg tablet 50 mg PO BID tab 07/11/18 metformin 1,000 mg tablet 1,000 mg PO BID 07/11/18 oxybutynin chloride ER 15 mg 15 mg PO DAILY 07/11/18 tablet,extended release 24 hr sertraline 100 mg tablet 100 mg PO DAILY 07/11/18 sitagliptin 100 mg tablet 100 mg PO DAILY 07/11/18 Acetaminophen [Tylenol] 500 mg PO Q6H PRN PRN 10/03/18 Cyclobenzaprine HCl 5 - 10 mg PO TID PRN PRN 10/03/18 Metoprolol Tartrate [Lopressor 25 mg PO BID 10/03/18 (beta fritz)] Oxycodone HCl/Acetaminophen 1 tab PO Q6H PRN PRN 10/03/18 [Oxycodone-Acetaminophen 5-325] Simvastatin [Zocor] 20 mg PO QHS 10/03/18 Amiodarone HCl [Cordarone] 200 mg PO BID 10/10/18 Amlodipine [Norvasc] 10 mg PO DAILY 10/10/18 Apixaban [Eliquis] 5 mg PO BID 10/10/18 Hydrochlorothiazide [Hctz] 25 mg PO DAILY 10/10/18 levoFLOXacin tablet [Levaquin 750 mg PO DAILY 10/10/18 tablet] Surgical History: Surgical History (Last Updated 07/11/18 @ 14:55 by Dede Kasper) History of back surgery Z98.890 History of carpal tunnel release Z98.890 History of hysterectomy Z90.710 Surgical History: hysterectomy, - - Back surgery, carpal tunnel release. 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 Smoking Status: Never smoker Tobacco Use: Non-smoker Alcohol: None Drugs: None - *Family History Maternal Family History: Family History (Last Updated 07/11/18 @ 14:56 by Dede Kasper) Father Diabetes Hypertension High cholesterol History Items: No pertinent history Paternal Family History: Family History (Last Updated 07/11/18 @ 14:56 by Dede Kasper) Father Diabetes Hypertension High cholesterol History Items: No pertinent history Review of Systems Constitutional: Reports: Weakness. Denies: Chills, Fever, Weight Change HEENT: Denies: Head Aches, Sinus Congestion, Sinus Drainage Cardiovascular: Denies: Chest Pain, Palpitations Respiratory: Denies: Cough, Shortness of breath at rest, Sputum production Gastrointestinal: Denies: Abdominal Pain, Nausea, Vomiting Genitourinary: Denies: Dysuria Musculoskeletal: Denies: Joint Pain, Joint Tenderness Skin: Denies: Rash, Wounds Neurological: Denies: Numbness, Tingling, Focal weakness Psychiatric: Denies: Anxiety, Depression, Homicidal Ideations, Suicidal Ideations Hematologic/ Lymphatic: Denies: Easy Bruising, Easy Bleeding VTE Information - Inpt Only VTE Present on Admission: No VTE Mechan Device Prophylaxis: Knee High KYUNG Hose VTE Pharm Prophylaxis ordered?: No Reason prophylaxis not ordered:: Treatment Not Indicated Patient Problems: Active and Suspected Problems (Last Reviewed 07/11/18 @ 14:55 by Dede Kasper) Back pain (Acute) Atrial fibrillation with rapid ventricular response (Acute) Urinary tract infection (Acute) Acidosis (Acute) Acute kidney injury (Acute) - Physical Exam General: Alert, Oriented x3, Cooperative HEENT: Atraumatic, PERRLA, EOMI, Normocephalic Neck: Supple, No JVD, Negative Carotid Bruits Lungs: Clear to auscultation, Normal air movement Cardiovascular: Regular rate, No murmurs Abdomen: Bowel Sounds Present, Soft, Non Tender Extremities: No edema, Capillary Refill Less than 3 Seconds Skin: No rashes, No breakdown Musculoskeletal: No Tenderness to Palpation of Joints or Extremities Neurological: Cranial nerves II-XII grossly intact Psych/Mental Status: Normal Affect, Appropriate Vital Signs Temp Pulse Resp BP 97.8 F 68 18 180/74 H 10/10/18 17:07 10/10/18 17:07 10/10/18 17:07 10/10/18 17:07 Oxygen Delivery Method Room Air Weight: 109.996 kg Body Mass Index (BMI) 40.6 Finger Stick Blood Glucose 158 Intake and Output for Last 24 Hours 10/08/18 10/09/18 10/10/18 23:59 23:59 23:59 Intake Total 720 / 720 Balance 720 / 720 Assessment/Plan All Active Problems (Last Reviewed 07/11/18 @ 14:55 by Dede Kasper) Atrial fibrillation (Acute) DKA (diabetic ketoacidoses) (Acute) Renal insufficiency (Acute) Hypertriglyceridemia (Acute) Back pain (Acute) Atrial fibrillation with rapid ventricular response (Acute) Urinary tract infection (Acute) Acidosis (Acute) Acute kidney injury (Acute) Abnormal mammogram of right breast (Acute) 68 year old female with below past medical history hospitalized for acute kidney injury, complicated by atrial fibrillation with RVR, bilateral pneumonia, urinary tract infection, Diabetic ketoacidosis, admitted to TCU with debility, here for rehabilitation, strengthening, prior to discharge home alone. Debility - PT/OT. Pain - Tylenol 1000MG Q6H PRN mild pain, Oxycodone 5MG Q6H PRN moderate pain. Bowel - Miralax 17GM daily, Senokot 1 tablet BID, Dulcolax 10MG daily PRN. Pneumonia vaccination - Administer Prevnar 13 and/or Pneumovax 23 as necessary. DVT prophylaxis - Not necessary, already on Eliquis. Atrial Fibrillation - Metoprolol 25MG BID, Amiodarone 200MG BID thru 10/24/2018, then 200MG daily, Eliquis 5MG BID. Hypertension - Metoprolol 25MG BID, Losartan 50MG twice daily, Amlodipine 10MG daily, HCTZ 25MG daily. Stroke - Aspirin 81MG daily, consider stopping Aspirin since resident already on Eliquis, no increased benefit, but increased risk of bleeding. Hyperlipidemia - Atorvastatin 10MG QHS, consider high intensity statin. Muscle spasm - Flexeril 5 to 10MG TID PRN. Diabetes Mellitus II - Metformin 1000MG BID, Glimepiride 4MG BID, Tradjenta 5MG daily. Pneumonia/UTI - Levaquin 750MG Q48H thru 10/15/2018. Depression - Sertraline 100MG daily. Overactive Bladder - Tolterodine extended release 4MG daily.
--- NOTE | 2018-10-10 21:08 | HP.PCM_ITS ---
Problem List (1) Back pain Status: Acute (2) Atrial fibrillation with rapid ventricular response Status: Acute (3) Urinary tract infection Status: Acute (4) Acidosis Status: Acute (5) Acute kidney injury Status: Acute (6) Osteoarthritis Status: Chronic (7) Depression Status: Chronic (8) Sleep apnea Status: Chronic (9) Overactive bladder Status: Chronic (10) Hyperlipidemia Status: Chronic (11) HTN (hypertension) Status: Chronic (12) Diabetes mellitus Status: Chronic (13) DKA (diabetic ketoacidoses) Status: Acute History of Present Illness Date of Admission: 10/10/18 Chief Complaint: Here for rehabilitation, strengthening, prior to discharge home alone. The patient is a 68 year old Female with below past medical history presented to [facility] Emergency Department 10/03/2018 with back pain. 10/03/2018 CT brain right temporal lobe lacunar infarct. 10/03/2018 EKG Atrial fibrillation with rapid ventricular response, nonspecific ST&T wave abnormality. Low Back Pain x 2 weeks, dull pain. Right leg numb x 3 weeks. Troponin okay, Sodium 129, Glucose 413, K 4.6. Chloride 95, Bicarb 19, Cr 5.31, INR 1.4. WBC 14, Hemoglobin 11.3, Hematocrit 34.2. IV Fluids, insulin drip, converted to sinus rhythm spontaneously. Not TPA candidate. 10/03/2018 Admit to Hospital. Rate control for atrial fibrillation with rapid ventricular response. IV Fluids, insulin for DKA. Evaluation for stroke. 10/04/2018 Echo EF 75% Right ventricular systolic pressure 48mm HG. Mild pulmonary hypertension. Mild Aortic Stenosis. 10/04/2018 MRI brain right sided stroke. 10/05/2018 MRA head normal. 10/05/2018 MRA neck normal. 10/05/2018 MRI cervical spine, Increase T3-4 disc, cord flattening. 10/05/2018 MRI lumbar spine, disc disease without stenosis. 10/06/2018 CT chest bilateral airspace disease, worse on right. Amiodarone drip for atrial fibrillation with RVR. Stroke ruled out per Neurology. IV Zosyn, BiPAP for pneumonia. DKA resolved. Acute kidney injury improved, but not at baseline. IV Zosyn for UTI. Acute kidney injury secondary to prerenal azotemia, post renal obstruction. Cr improved to 1.34. Hyperkalemia resolved with Kayexalate. Oral Bicarb for non gap acidosis. Amlodipine, HCTZ added to Metoprolol for improved blood pressure control. Eliquis 5MG BID for atrial fibrillation. 10/10/2018 Admit to TCU with debility, here for rehabilitation, strengthening, prior to discharge home alone. Past Medical History Past Medical History (Chronic Problems): Chronic Problems (Last Reviewed 07/11/18 @ 14:55 by Dede Kasper) HTN (hypertension) (Chronic) Diabetes mellitus (Chronic) Osteoarthritis (Chronic) Depression (Chronic) Sleep apnea (Chronic) Overactive bladder (Chronic) Hyperlipidemia (Chronic) Medical History: Medical History (Last Reviewed 07/11/18 @ 14:55 by Dede Kasper) Abnormal mammogram of right breast (Acute) R92.8 Abnormal mammogram of right breast R92.8 Arthritis M19.90 Depression with anxiety F41.8 Diabetes E11.9 Sleep apnea G47.30 Hypertension I10 Allergies fosinopril [From Monopril] Allergy (Unknown, Verified 10/03/18 14:25) unknown pioglitazone Adverse Reaction (Verified 10/03/18 14:25) Other Home Medications: Ambulatory Orders Medication Instructions Recorded aspirin 81 mg chewable tablet 81 mg PO DAILY 07/11/18 glimepiride 4 mg tablet 4 mg PO BID tab 07/11/18 losartan 50 mg tablet 50 mg PO BID tab 07/11/18 metformin 1,000 mg tablet 1,000 mg PO BID 07/11/18 oxybutynin chloride ER 15 mg 15 mg PO DAILY 07/11/18 tablet,extended release 24 hr sertraline 100 mg tablet 100 mg PO DAILY 07/11/18 sitagliptin 100 mg tablet 100 mg PO DAILY 07/11/18 Acetaminophen [Tylenol] 500 mg PO Q6H PRN PRN 10/03/18 Cyclobenzaprine HCl 5 - 10 mg PO TID PRN PRN 10/03/18 Metoprolol Tartrate [Lopressor 25 mg PO BID 10/03/18 (beta fritz)] Oxycodone HCl/Acetaminophen 1 tab PO Q6H PRN PRN 10/03/18 [Oxycodone-Acetaminophen 5-325] Simvastatin [Zocor] 20 mg PO QHS 10/03/18 Amiodarone HCl [Cordarone] 200 mg PO BID 10/10/18 Amlodipine [Norvasc] 10 mg PO DAILY 10/10/18 Apixaban [Eliquis] 5 mg PO BID 10/10/18 Hydrochlorothiazide [Hctz] 25 mg PO DAILY 10/10/18 levoFLOXacin tablet [Levaquin 750 mg PO DAILY 10/10/18 tablet] Surgical History: Surgical History (Last Updated 07/11/18 @ 14:55 by Dede Kasper) History of back surgery Z98.890 History of carpal tunnel release Z98.890 History of hysterectomy Z90.710 Surgical History: hysterectomy, - - Back surgery, carpal tunnel release. 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 Smoking Status: Never smoker Tobacco Use: Non-smoker Alcohol: None Drugs: None - *Family History Maternal Family History: Family History (Last Updated 07/11/18 @ 14:56 by Dede Kasper) Father Diabetes Hypertension High cholesterol History Items: No pertinent history Paternal Family History: Family History (Last Updated 07/11/18 @ 14:56 by Dede Kasper) Father Diabetes Hypertension High cholesterol History Items: No pertinent history Review of Systems Constitutional: Reports: Weakness. Denies: Chills, Fever, Weight Change HEENT: Denies: Head Aches, Sinus Congestion, Sinus Drainage Cardiovascular: Denies: Chest Pain, Palpitations Respiratory: Denies: Cough, Shortness of breath at rest, Sputum production Gastrointestinal: Denies: Abdominal Pain, Nausea, Vomiting Genitourinary: Denies: Dysuria Musculoskeletal: Denies: Joint Pain, Joint Tenderness Skin: Denies: Rash, Wounds Neurological: Denies: Numbness, Tingling, Focal weakness Psychiatric: Denies: Anxiety, Depression, Homicidal Ideations, Suicidal Ideations Hematologic/ Lymphatic: Denies: Easy Bruising, Easy Bleeding VTE Information - Inpt Only VTE Present on Admission: No VTE Mechan Device Prophylaxis: Knee High KYUNG Hose VTE Pharm Prophylaxis ordered?: No Reason prophylaxis not ordered:: Treatment Not Indicated Patient Problems: Active and Suspected Problems (Last Reviewed 07/11/18 @ 14:55 by Dede Kasper) Back pain (Acute) Atrial fibrillation with rapid ventricular response (Acute) Urinary tract infection (Acute) Acidosis (Acute) Acute kidney injury (Acute) - Physical Exam General: Alert, Oriented x3, Cooperative HEENT: Atraumatic, PERRLA, EOMI, Normocephalic Neck: Supple, No JVD, Negative Carotid Bruits Lungs: Clear to auscultation, Normal air movement Cardiovascular: Regular rate, No murmurs Abdomen: Bowel Sounds Present, Soft, Non Tender Extremities: No edema, Capillary Refill Less than 3 Seconds Skin: No rashes, No breakdown Musculoskeletal: No Tenderness to Palpation of Joints or Extremities Neurological: Cranial nerves II-XII grossly intact Psych/Mental Status: Normal Affect, Appropriate Vital Signs Temp Pulse Resp BP 97.8 F 68 18 180/74 H 10/10/18 17:07 10/10/18 17:07 10/10/18 17:07 10/10/18 17:07 Oxygen Delivery Method Room Air Weight: 109.996 kg Body Mass Index (BMI) 40.6 Finger Stick Blood Glucose 158 Intake and Output for Last 24 Hours 10/08/18 10/09/18 10/10/18 23:59 23:59 23:59 Intake Total 720 / 720 Balance 720 / 720 Assessment/Plan All Active Problems (Last Reviewed 07/11/18 @ 14:55 by Dede Kasper) Atrial fibrillation (Acute) DKA (diabetic ketoacidoses) (Acute) Renal insufficiency (Acute) Hypertriglyceridemia (Acute) Back pain (Acute) Atrial fibrillation with rapid ventricular response (Acute) Urinary tract infection (Acute) Acidosis (Acute) Acute kidney injury (Acute) Abnormal mammogram of right breast (Acute) 68 year old female with below past medical history hospitalized for acute kidney injury, complicated by atrial fibrillation with RVR, bilateral pneumonia, urinary tract infection, Diabetic ketoacidosis, admitted to TCU with debility, here for rehabilitation, strengthening, prior to discharge home alone. * Debility - PT/OT. * Pain - Tylenol 1000MG Q6H PRN mild pain, Oxycodone 5MG Q6H PRN moderate pain. * Bowel - Miralax 17GM daily, Senokot 1 tablet BID, Dulcolax 10MG daily PRN. * Pneumonia vaccination - Administer Prevnar 13 and/or Pneumovax 23 as necessary. * DVT prophylaxis - Not necessary, already on Eliquis. * Atrial Fibrillation - Metoprolol 25MG BID, Amiodarone 200MG BID thru 10/24/2018, then 200MG daily, Eliquis 5MG BID. * Hypertension - Metoprolol 25MG BID, Losartan 50MG twice daily, Amlodipine 10MG daily, HCTZ 25MG daily. * Stroke - Aspirin 81MG daily, consider stopping Aspirin since resident already on Eliquis, no increased benefit, but increased risk of bleeding. * Hyperlipidemia - Atorvastatin 10MG QHS, consider high intensity statin. * Muscle spasm - Flexeril 5 to 10MG TID PRN. * Diabetes Mellitus II - Metformin 1000MG BID, Glimepiride 4MG BID, Tradjenta 5MG daily. * Pneumonia/UTI - Levaquin 750MG Q48H thru 10/15/2018. * Depression - Sertraline 100MG daily. * Overactive Bladder - Tolterodine extended release 4MG daily.
[2018-10-10 21:10] LABS: Bedside Glucose 255 mg/dL (70-110)
[2018-10-10] MEDS: Losartan Potassium 50 MG Tablet PO (21:35)
[2018-10-10] MEDS: Amiodarone 200 MG Tablet PO (21:35)
[2018-10-10] MEDS: levoFLOXacin 750 MG Tablet PO (21:36)
[2018-10-10 21:37] VITALS: BP 182/72; PULSE 64
[2018-10-10] MEDS: Atorvastatin Calcium 10 MG Tablet PO (21:37)
[2018-10-10] MEDS: APIXABAN 5 MG TABLET PO (21:37)
[2018-10-10] MEDS: Metoprolol Tartrate 25 MG Tablet PO (21:37)
[2018-10-10 22:04] VITALS: BMI 42.9
[2018-10-10 22:11] VITALS: BMI 43.0
[2018-10-11] VITALS (7 sets, daily range): BP systolic 139–194; BP diastolic 71–90; PULSE 62–72; RESP 18–22; TEMP 36.9; O2SAT 92–95
[2018-10-11] MEDS: APIXABAN 5 MG TABLET PO ×2 (05:56→16:58)
[2018-10-11] MEDS: Sertraline 100 MG Tablet PO (05:56)
[2018-10-11] MEDS: Tolterodine Tartrate 4 MG CAP.SA PO (05:57)
[2018-10-11] MEDS: Amiodarone 200 MG Tablet PO ×2 (05:57→16:59)
[2018-10-11] MEDS: Losartan Potassium 50 MG Tablet PO ×2 (05:57→16:59)
[2018-10-11 05:58] LABS: Absolute Lymphocyte Count 1.44 X10^3/ul (0.83-4.51); Absolute Neutrophil Count 12.3 X10^3/uL (2.0-7.7); Basophil# 0.02 X10^3/uL; Basophil% 0.1 % (0-1); Eosinophil# 0.24 X10^3/uL; Eosinophils% 1.6 % (0-5); Hematocrit 30.6 % (37-47); Hemoglobin 9.7 g/dl (12.0-15.0); Lymphocyte # 1.44 X10^3/ul (4.0); Lymphocyte % 9.8 % (19-41); Mean Corp Hgb Conc 31.7 g/gl (32-36); Mean Corpuscular Hgb 25.3 pg (27.0-32.0); Mean Corpuscular Volume 79.9 fL (81-99); Mean Platelet Vol. 10.1 fl (6.2-12.0); Monocyte# 0.51 X10^3/uL; Monocyte% 3.5 % (0-10); Neutrophil % 83.8 % (47-70); Platelet Count 277 K/mm3 (150-450); RBC Distribution Width CV 17.2 % (11.6-14.6); RBC Distribution Width SD 48.4 fl (35.1-43.9); Red Blood Count 3.83 M/mm3 (4.2-5.4); White Blood Count 14.7 K/mm3 (4.4-11.0)
[2018-10-11] MEDS: LINAGLIPTIN 5 MG TABLET PO (05:58)
[2018-10-11] MEDS: amLODIPine 10 MG Tablet PO (05:58)
[2018-10-11] MEDS: hydroCHLOROthiazide 25 MG Tablet PO (05:58)
[2018-10-11] MEDS: Metoprolol Tartrate 25 MG Tablet PO ×2 (05:58→16:58)
[2018-10-11 06:00] LABS: POSITIVE COUNT NO; POSITIVE DIFFERENTIAL NO; POSITIVE MORPHOLOGY NO
[2018-10-11] MEDS: Nystatin Powder 15gm Bottle 1 APPLIC TOPICAL ×2 (06:00→19:38)
[2018-10-11 06:07] LABS: Anion Gap 9 (5-15); BUN 29 mg/dL (7-18); BUN/Creat Ratio 21.3 RATIO (10-20); Calcium,Total 8.4 mg/dL (8.5-10.1); Chloride 108 mmol/L (98-107); Creatinine, Serum 1.36 mg/dL (0.55-1.02); EST Glomerular Filtration Rate 41 mL/min (>60); Est Glom Filt Rate - Afr Amer 50 mL/min (>60); Estimated Creatinine Clearance 33.66 ml/min; Glucose 199 mg/dL (74-106); Potassium 4.6 mmol/L (3.5-5.1); Sodium Level 142 mmol/L (136-145)
[2018-10-11 06:35] LABS: Bedside Glucose 214 mg/dL (70-110)
[2018-10-11] MEDS: Aspirin 81 MG TAB.CHEW PO (08:40)
[2018-10-11] MEDS: Glimepiride 4 MG Tablet PO ×2 (08:40→16:59)
[2018-10-11] MEDS: metFORMIN HCl 1,000 MG Tablet 1000 MG PO ×2 (08:40→16:58)
--- NOTE | 2018-10-11 10:51 | NURSING ---
Removed saline lock to RT wrist, not using. site intact, blood noted under drsg.
[2018-10-11] MEDS: Tuberculin,Purif.prot.deriv. 50 TU/ML Vial 5 ML ID (11:09)
[2018-10-11 11:25] LABS: Bedside Glucose 330 mg/dL (70-110)
[2018-10-11] MEDS: Acetaminophen 500 MG Tablet 1000 MG PO (16:15)
[2018-10-11 16:55] LABS: Bedside Glucose 171 mg/dL (70-110)
[2018-10-11] MEDS: Atorvastatin Calcium 10 MG Tablet PO (19:36)
[2018-10-11 21:01] LABS: Bedside Glucose 268 mg/dL (70-110)
[2018-10-12] MEDS: Tolterodine Tartrate 4 MG CAP.SA PO (05:17)
[2018-10-12] MEDS: Sertraline 100 MG Tablet PO (05:17)
[2018-10-12] MEDS: Losartan Potassium 50 MG Tablet PO ×2 (05:17→18:06)
[2018-10-12] MEDS: Amiodarone 200 MG Tablet PO ×2 (05:17→18:06)
[2018-10-12] MEDS: LINAGLIPTIN 5 MG TABLET PO (05:17)
[2018-10-12 05:18] VITALS: BP 153/92; PULSE 78
[2018-10-12] MEDS: Metoprolol Tartrate 25 MG Tablet PO ×2 (05:18→18:07)
[2018-10-12] MEDS: APIXABAN 5 MG TABLET PO ×2 (05:18→18:06)
[2018-10-12] MEDS: hydroCHLOROthiazide 25 MG Tablet PO (05:19)
[2018-10-12] MEDS: Nystatin Powder 15gm Bottle 1 APPLIC TOPICAL ×2 (05:24→21:17)
[2018-10-12] MEDS: amLODIPine 10 MG Tablet PO (05:24)
[2018-10-12 06:35] VITALS: O2SAT 96
[2018-10-12 06:50] LABS: Bedside Glucose 144 mg/dL (70-110)
[2018-10-12] MEDS: Glimepiride 4 MG Tablet PO ×2 (10:50→18:05)
[2018-10-12] MEDS: levoFLOXacin 750 MG Tablet PO (10:50)
[2018-10-12] MEDS: metFORMIN HCl 1,000 MG Tablet 1000 MG PO ×2 (10:50→18:05)
[2018-10-12] MEDS: Aspirin 81 MG TAB.CHEW PO (10:50)
[2018-10-12 11:11] LABS: Bedside Glucose 288 mg/dL (70-110)
[2018-10-12] MEDS: Insulin Lispro 100 UNIT/ML INSULN.PEN SC (11:55)
[2018-10-12] MEDS: Acetaminophen 500 MG Tablet 1000 MG PO (15:49)
[2018-10-12 16:00] VITALS: BP 152/70; PULSE 77; RESP 20; TEMP 37.2; O2SAT 91
--- NOTE | 2018-10-12 16:50 | NURSING ---
blood sugar 53. oj and marianela doones given. a&ox3. pt staes she feels weird.
[2018-10-12 17:00] LABS: Bedside Glucose 53 mg/dL (70-110)
--- NOTE | 2018-10-12 17:12 | NURSING ---
blood sugar rechecked, 58. ice cream and bhupinder crackers with pb given. pt a&ox3. will cont to monitor.
[2018-10-12 17:40] LABS: Bedside Glucose 71 mg/dL (70-110)
[2018-10-12 17:40] LABS: Bedside Glucose 58 mg/dL (70-110)
[2018-10-12 18:07] VITALS: BP 152/70; PULSE 77
[2018-10-12] MEDS: guaiFENesin 600 MG Tablet PO (18:07)
[2018-10-12 20:08] VITALS: PULSE 81; O2SAT 95
[2018-10-12 21:11] LABS: Bedside Glucose 97 mg/dL (70-110)
[2018-10-12] MEDS: Atorvastatin Calcium 10 MG Tablet PO (21:12)
[2018-10-13 02:10] LABS: Bedside Glucose 77 mg/dL (70-110)
[2018-10-13 06:32] VITALS: O2SAT 94
--- NOTE | 2018-10-13 06:43 | NURSING ---
Addendum entered by Trisha Tate 10/13/18 08:18: Dr. Ramirez updated, continue to monitor. 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 As pt was beginning to sit down she states she got a wave of nausea and felt like she was going to vomit. Pt dry heaved a couple of times but did not vomit. Pt denied nausea after. BP 165/71 HR 82. Pt requesting to have saltine crackers and keshia kasi. Wanting to wait to take 0600 meds with breakfast. Pt resting in recliner with call light in reach. Will update vida and Dr. Ramirez.
[2018-10-13 06:51] LABS: Bedside Glucose 121 mg/dL (70-110)
[2018-10-13] MEDS: LINAGLIPTIN 5 MG TABLET PO (08:51)
[2018-10-13] MEDS: Sertraline 100 MG Tablet PO (08:51)
[2018-10-13] MEDS: Amiodarone 200 MG Tablet PO ×3 (08:51→17:33)
[2018-10-13] MEDS: amLODIPine 10 MG Tablet PO (08:51)
[2018-10-13] MEDS: guaiFENesin 600 MG Tablet PO ×2 (08:51→17:32)
[2018-10-13] MEDS: Losartan Potassium 50 MG Tablet PO ×2 (08:51→17:33)
[2018-10-13] MEDS: APIXABAN 5 MG TABLET PO ×2 (08:52→17:33)
[2018-10-13] MEDS: Tolterodine Tartrate 4 MG CAP.SA PO (08:52)
[2018-10-13] MEDS: hydroCHLOROthiazide 25 MG Tablet PO (08:52)
[2018-10-13] MEDS: Nystatin Powder 15gm Bottle 1 APPLIC TOPICAL ×2 (08:53→21:09)
[2018-10-13] MEDS: metFORMIN HCl 1,000 MG Tablet 1000 MG PO ×2 (08:54→17:31)
[2018-10-13] MEDS: Glimepiride 4 MG Tablet PO ×2 (08:54→17:33)
[2018-10-13] MEDS: Aspirin 81 MG TAB.CHEW PO (08:54)
[2018-10-13] MEDS: Insulin Lispro 100 UNIT/ML INSULN.PEN SC (08:55)
[2018-10-13 09:04] VITALS: PULSE 92
[2018-10-13] MEDS: Metoprolol Tartrate 25 MG Tablet PO ×2 (09:04→17:32)
[2018-10-13 11:35] LABS: Bedside Glucose 84 mg/dL (70-110)
--- NOTE | 2018-10-13 13:58 | RAD_ITS ---
STUDY: X-RAY CHEST REASON FOR EXAM: Female, 68 years old. Shortness of breath. TECHNIQUE: PA and lateral views of the chest. COMPARISON: Comparison is made with prior study dated October 05, 2018. FINDINGS: Since prior study, the vascular congestion and CHF as cleared. Residual increased markings at the lung bases likely worse on the right side suggestive of atelectasis persist. Blunting of the costophrenic angles posteriorly. There is borderline cardiomegaly. Normal mediastinum and nevin. Normal visualized pulmonary arteries. There is atherosclerotic calcification of the aortic arch with tortuosity. There are diffuse degenerative changes of the visualized thoracic spine. Normal visualized ribs, clavicles, and shoulders. There is no demonstrated abnormality of the visualized soft tissue structures of the upper abdomen. RAD/Chest PA and Lateral IMPRESSION: The CHF has resolved. Residual atelectasis at the lung bases worse on the right side. Blunting of both costophrenic angles. Electronically Signed: Jordan Jones, at 15:18 EDT , Service support ,
--- NOTE | 2018-10-13 13:59 | NURSING ---
Addendum entered by Trisha Tate 10/13/18 14:02: New order to d/c Humalog. Original Note: Patient has c/o intermittent nausea and has labored respirations with mild SOB. LSCTA, diminished in bases, oxygen 88-90% on RA, applied 2LPM. Cap refill rapid. Denies cough. Dr. Ramirez updated, New order for CBC with diff, BMP, UA C&S, CXR and KUB. Patient made aware.
--- NOTE | 2018-10-13 14:35 | RAD_ITS ---
STUDY: X-RAY - ABDOMEN/PELVIS REASON FOR EXAM: Female, 68 years old. Nausea and vomiting. Abdominal pain. TECHNIQUE: AP supine and upright views of the abdomen and pelvis. COMPARISON: None. FINDINGS: Mild increased markings at the lung bases suggestive of atelectasis. There is a moderate amount of colonic fecal material. There is no demonstrated free abdominal air. The visualized liver, spleen and kidneys are grossly normal in size and morphology. Normal soft tissue structures. There are diffuse degenerative changes of the visualized lumbar spine. RAD/Abd Inc Decub and/or Erect IMPRESSION: Moderate amount of fecal material is seen in the colon. Findings suggestive of bibasilar linear atelectasis. Electronically Signed: Jordan Jones, at 15:19 EDT , Service support ,
[2018-10-13 14:36] LABS: Absolute Lymphocyte Count 1.22 X10^3/ul (0.83-4.51); Absolute Neutrophil Count 10.1 X10^3/uL (2.0-7.7); Basophil# 0.03 X10^3/uL; Basophil% 0.2 % (0-1); Eosinophil# 0.18 X10^3/uL; Eosinophils% 1.5 % (0-5); Hematocrit 32.7 % (37-47); Hemoglobin 10.2 g/dl (12.0-15.0); Lymphocyte # 1.22 X10^3/ul (4.0); Lymphocyte % 10.1 % (19-41); Mean Corp Hgb Conc 31.2 g/gl (32-36); Mean Corpuscular Hgb 25.1 pg (27.0-32.0); Mean Corpuscular Volume 80.5 fL (81-99); Mean Platelet Vol. 9.3 fl (6.2-12.0); Monocyte# 0.51 X10^3/uL; Monocyte% 4.2 % (0-10); Neutrophil # 10.13 X10^3/uL (2.7-7.7); Neutrophil % 83.6 % (47-70); Platelet Count 330 K/mm3 (150-450); RBC Distribution Width CV 17.4 % (11.6-14.6); RBC Distribution Width SD 49.9 fl (35.1-43.9); Red Blood Count 4.06 M/mm3 (4.2-5.4); White Blood Count 12.1 K/mm3 (4.4-11.0)
[2018-10-13 14:37] LABS: POSITIVE COUNT NO; POSITIVE DIFFERENTIAL NO; POSITIVE MORPHOLOGY NO
[2018-10-13 14:47] LABS: Anion Gap 9 (5-15); BUN 22 mg/dL (7-18); Calcium,Total 8.5 mg/dL (8.5-10.1); Chloride 105 mmol/L (98-107); Creatinine, Serum 1.47 mg/dL (0.55-1.02); EST Glomerular Filtration Rate 38 mL/min (>60); Est Glom Filt Rate - Afr Amer 46 mL/min (>60); Estimated Creatinine Clearance 31.14 ml/min; Glucose 104 mg/dL (74-106); Sodium Level 141 mmol/L (136-145)
[2018-10-13 15:28] LABS: Bacteria 0 SEEN /hpf (None Seen); Mucous, Urine 0 SEEN /hpf (<or=2+)
[2018-10-13 15:54] LABS: Color, Urine Yellow (Yellow); Glucose, Dipstick Normal (Normal); Ketone-Dipstick Negative (Negative); Leukocyte Esterase-Dipstick 500 /ul (Negative); Nitrite-Dipstick Negative (Negative); Occult Blood-Urine 250 /ul (Negative); Protein-Dipstick 15 mg/dl (Negative); Urine Bilirubin Dipstick Negative (Negative); Urine Clarity Clear (Clear); Urine Urobilinogen Normal (Normal); Urine pH 6.5 (5.0 - 8.0)
[2018-10-13 16:00] VITALS: BP 147/78; PULSE 77; RESP 18; TEMP 36.6; O2SAT 90
[2018-10-13 16:12] LABS: Red Blood Cells-Urine 10-25 SEEN /hpf (0-5); Squamous Epithelial Cells - UA 0-5 SEEN /hpf (5-10); White Blood Cells 0-5 SEEN /hpf (0-5)
[2018-10-13 16:55] LABS: Bedside Glucose 129 mg/dL (70-110)
[2018-10-13 17:32] VITALS: BP 147/78; PULSE 77
[2018-10-13] MEDS: Electrolyte Solution/Peg's 4000 ML 500 ML PO (21:03)
[2018-10-13] MEDS: Atorvastatin Calcium 10 MG Tablet PO (21:09)
[2018-10-13 21:25] LABS: Bedside Glucose 121 mg/dL (70-110)
[2018-10-13] MEDS: Bisacodyl 5 MG Tablet 10 MG PO (22:21)
[2018-10-14] MEDS: Polyethylene Glycol 3350 17 GM PACKET PO (06:22)
[2018-10-14 06:24] VITALS: BP 168/78; PULSE 71
[2018-10-14] MEDS: Sertraline 100 MG Tablet PO (06:24)
[2018-10-14] MEDS: hydroCHLOROthiazide 25 MG Tablet PO (06:24)
[2018-10-14] MEDS: LINAGLIPTIN 5 MG TABLET PO (06:24)
[2018-10-14] MEDS: Tolterodine Tartrate 4 MG CAP.SA PO (06:24)
[2018-10-14] MEDS: Nystatin Powder 15gm Bottle 1 APPLIC TOPICAL ×2 (06:24→21:46)
[2018-10-14] MEDS: Senna Tablet 1 TABLET PO ×2 (06:24→17:52)
[2018-10-14] MEDS: Metoprolol Tartrate 25 MG Tablet PO ×2 (06:24→17:50)
[2018-10-14] MEDS: amLODIPine 10 MG Tablet PO (06:24)
[2018-10-14] MEDS: Losartan Potassium 50 MG Tablet PO ×2 (06:24→17:51)
[2018-10-14] MEDS: guaiFENesin 600 MG Tablet PO ×2 (06:24→17:52)
[2018-10-14] MEDS: APIXABAN 5 MG TABLET PO ×2 (06:25→17:51)
[2018-10-14 06:31] LABS: Bedside Glucose 84 mg/dL (70-110)
--- NOTE | 2018-10-14 06:33 | NURSING ---
Pt drank about 150ml of Nulytely and refused the rest. Pt stating If I drink anymore of that stuff I am going to puke. Educated on importance of medication and why it was ordered. Pt still refusing. Took Miralax and Senna this AM. Still no BM. Will updated Dr. Ramirez.
[2018-10-14] MEDS: Aspirin 81 MG TAB.CHEW PO (08:58)
[2018-10-14] MEDS: metFORMIN HCl 1,000 MG Tablet 1000 MG PO ×2 (08:58→17:52)
[2018-10-14] MEDS: levoFLOXacin 750 MG Tablet PO (08:58)
[2018-10-14] MEDS: Glimepiride 4 MG Tablet PO ×2 (08:58→17:51)
[2018-10-14] MEDS: Bisacodyl 10 MG Suppository RECTAL (11:27)
[2018-10-14 11:40] LABS: Bedside Glucose 179 mg/dL (70-110)
[2018-10-14 16:00] VITALS: BP 142/76; PULSE 83; RESP 20; TEMP 37.2; O2SAT 94
[2018-10-14 17:06] LABS: Bedside Glucose 113 mg/dL (70-110)
[2018-10-14 17:50] VITALS: BP 142/76; PULSE 83
[2018-10-14] MEDS: Amiodarone 200 MG Tablet PO (17:51)
[2018-10-14 21:25] LABS: Bedside Glucose 108 mg/dL (70-110)
[2018-10-14] MEDS: Atorvastatin Calcium 10 MG Tablet PO (21:45)
[2018-10-15 06:27] VITALS: BP 161/90; PULSE 80
[2018-10-15] MEDS: Metoprolol Tartrate 25 MG Tablet PO ×2 (06:27→17:12)
[2018-10-15] MEDS: Amiodarone 200 MG Tablet PO ×2 (06:28→17:12)
[2018-10-15] MEDS: APIXABAN 5 MG TABLET PO ×2 (06:28→17:12)
[2018-10-15] MEDS: Tolterodine Tartrate 4 MG CAP.SA PO (06:28)
[2018-10-15] MEDS: Losartan Potassium 50 MG Tablet PO ×2 (06:28→17:12)
[2018-10-15] MEDS: amLODIPine 10 MG Tablet PO (06:29)
[2018-10-15] MEDS: hydroCHLOROthiazide 25 MG Tablet PO (06:29)
[2018-10-15] MEDS: guaiFENesin 600 MG Tablet PO ×2 (06:29→17:12)
[2018-10-15] MEDS: Senna Tablet 1 TABLET PO ×2 (06:30→17:12)
[2018-10-15] MEDS: Sertraline 100 MG Tablet PO (06:30)
[2018-10-15] MEDS: LINAGLIPTIN 5 MG TABLET PO (06:30)
[2018-10-15 06:31] LABS: Bedside Glucose 100 mg/dL (70-110)
[2018-10-15] MEDS: Nystatin Powder 15gm Bottle 1 APPLIC TOPICAL ×2 (06:35→20:30)
[2018-10-15] MEDS: metFORMIN HCl 1,000 MG Tablet 1000 MG PO ×2 (08:39→17:12)
[2018-10-15] MEDS: Aspirin 81 MG TAB.CHEW PO (08:39)
[2018-10-15] MEDS: Glimepiride 4 MG Tablet PO ×2 (08:39→17:12)
[2018-10-15 11:21] LABS: Bedside Glucose 221 mg/dL (70-110)
[2018-10-15 13:53] VITALS: BP 153/54; PULSE 75; RESP 18; TEMP 36.6; O2SAT 95
[2018-10-15 17:11] LABS: Bedside Glucose 171 mg/dL (70-110)
[2018-10-15 17:12] VITALS: BP 153/54; PULSE 75
[2018-10-15] MEDS: Atorvastatin Calcium 10 MG Tablet PO (20:30)
--- NOTE | 2018-10-15 20:42 | NURSING ---
Addendum entered by Chiquita Jeronimo 10/15/18 21:48: Patient aware and appreciative of new orders. Original Note: Patient very emotional and depressed today. Missing her and wanting to go home to her dogs. Patient having a hard time sleeping. Dr. Ramirez notified of this. New orders given.
[2018-10-15] MEDS: MELATONIN 10 MG TABLET PO (21:45)
[2018-10-16 05:10] LABS: Bedside Glucose 244 mg/dL (70-110)
[2018-10-16 06:05] VITALS: BP 133/55; PULSE 83
[2018-10-16] MEDS: Metoprolol Tartrate 25 MG Tablet PO ×2 (06:05→16:29)
[2018-10-16] MEDS: APIXABAN 5 MG TABLET PO ×2 (06:05→16:29)
[2018-10-16] MEDS: Amiodarone 200 MG Tablet PO ×2 (06:05→16:29)
[2018-10-16] MEDS: Losartan Potassium 50 MG Tablet PO ×2 (06:05→16:29)
[2018-10-16] MEDS: Sertraline 50 MG Tablet 150 MG PO (06:05)
[2018-10-16] MEDS: LINAGLIPTIN 5 MG TABLET PO (06:06)
[2018-10-16] MEDS: Tolterodine Tartrate 4 MG CAP.SA PO (06:06)
[2018-10-16] MEDS: guaiFENesin 600 MG Tablet PO ×2 (06:06→16:29)
[2018-10-16] MEDS: amLODIPine 10 MG Tablet PO (06:06)
[2018-10-16] MEDS: Nystatin Powder 15gm Bottle 1 APPLIC TOPICAL ×2 (06:10→21:03)
[2018-10-16] MEDS: hydroCHLOROthiazide 25 MG Tablet PO (06:11)
[2018-10-16 06:31] LABS: Bedside Glucose 194 mg/dL (70-110)
--- NOTE | 2018-10-16 07:39 | PCM.PN.RX ---
<Jose Guadalupe Spears D - Last Filed: 10/16/18 07:39> Progress Note - Pharmacy Subjective: TCU Admission Objective: Allergies fosinopril [From Monopril] Allergy (Unknown, Verified 10/03/18 14:25) unknown pioglitazone Adverse Reaction (Verified 10/03/18 14:25) Other Current Medications Generic Name Dose Route Start Last Admin Trade Name Freq PRN Reason Stop Dose Admin Acetaminophen 1,000 mg 10/10/18 21:23 10/12/18 15:49 Tylenol PO 1,000 mg Q6H PRN PRN Administration MILD PAIN (1-310) Amiodarone HCl 200 mg 10/10/18 18:00 10/16/18 06:05 Cordarone PO 10/24/18 19:00 200 mg BID ROSALIND Administration Amiodarone HCl 200 mg 10/25/18 06:00 Cordarone PO DAILY ROSALIND Amlodipine Besylate 10 mg 10/11/18 06:00 10/16/18 06:06 Norvasc PO 10 mg DAILY ROSALIND Administration Apixaban 5 mg 10/10/18 18:00 10/16/18 06:05 Eliquis PO 5 mg BID ROSALIND Administration Aspirin 81 mg 10/11/18 08:00 10/15/18 08:39 Aspirin, Baby PO 81 mg DAILYCM ROSALIND Administration Atorvastatin Calcium 10 mg 10/10/18 22:00 10/15/18 20:30 Lipitor PO 10 mg QHS ROSALIND Administration Bisacodyl 10 mg 10/10/18 17:43 10/13/18 22:21 Dulcolax PO 10 mg DAILY PRN Administration Constipation Cyclobenzaprine HCl 5 - 10 mg 10/10/18 17:29 Cyclobenzaprine Hcl PO TID PRN PRN SPASMS Dextrose 0 gm 10/11/18 19:31 D50w Syringe IV X1 PRN Hypoglycemia Protocol Glimepiride 4 mg 10/11/18 08:00 10/15/18 17:12 Amaryl PO 4 mg BIDCM ROSALIND Administration Glucagon 1 mg 10/11/18 19:31 IM .X1 PRN Hypoglycemia Guaifenesin 600 mg 10/12/18 18:00 10/16/18 06:06 Mucinex PO 600 mg BID ROSALIND Administration Hydrochlorothiazide 25 mg 10/11/18 06:00 10/16/18 06:11 Hctz PO 25 mg DAILY ROSALIND Administration Linagliptin 5 mg 10/11/18 06:00 10/16/18 06:06 Tradjenta PO 5 mg DAILY ROSALIND Administration Losartan Potassium 50 mg 10/10/18 18:00 10/16/18 06:05 Cozaar PO 50 mg BID ROSALIND Administration Melatonin 10 mg 10/15/18 22:00 10/15/18 21:45 Melatonin PO 10 mg QHS ROSALIND Administration Metformin HCl 1,000 mg 10/11/18 08:00 10/15/18 17:12 Glucophage PO 1,000 mg BIDCM ROSALIND Administration Metoprolol Tartrate 25 mg 10/10/18 18:00 10/16/18 06:05 Lopressor (Beta Keanu) PO 25 mg BID ROSALIND Administration Multi-Ingredient Cream 1 applic 10/11/18 22:00 10/15/18 20:31 Eucerin TOPICAL 1 applicatio 2200 [facility] Administration Protocol Nystatin 1 applic 10/11/18 06:00 10/16/18 06:10 Mycostatin Powder TOPICAL 1 applicatio 0600,2200 [facility] Administration Protocol Polyethylene Glycol 17 gm 10/11/18 06:00 10/16/18 06:07 Miralax PO Not Given DAILY ROSALIND Senna 1 tablet 10/11/18 06:00 10/16/18 06:08 Senokot PO Not Given BID ROSALIND Sertraline HCl 150 mg 10/16/18 06:00 10/16/18 06:05 Zoloft PO 150 mg DAILY ROSALIND Administration Tolterodine Tartrate 4 mg 10/11/18 06:00 10/16/18 06:06 Detrol La PO 4 mg DAILY ROSALIND Administration Problem List (Last Reviewed 07/11/18 @ 14:55 by Dede Kasper) Back pain (Acute) Atrial fibrillation with rapid ventricular response (Acute) Urinary tract infection (Acute) Acidosis (Acute) Acute kidney injury (Acute) Osteoarthritis (Chronic) Depression (Chronic) Sleep apnea (Chronic) Overactive bladder (Chronic) Hyperlipidemia (Chronic) Vital Signs Temp Pulse Resp BP Pulse Ox 97.9 F 83 18 133/55 H 95 10/15/18 13:53 10/16/18 06:05 10/15/18 13:53 10/16/18 06:05 10/15/18 13:53 Oxygen Delivery Method Room Air Weight: 109.99 kg Body Mass Index (BMI) 42.9 Finger Stick Blood Glucose 158 Sodium 141 mmol/L (136-145) 10/13/18 14:15 Potassium 4.0 mmol/L (3.5-5.1) 10/13/18 14:15 Chloride 105 mmol/L (98-107) 10/13/18 14:15 Carbon Dioxide 27.0 mmol/L (21.0-32.0) 10/13/18 14:15 Anion Gap 9 (5-15) 10/13/18 14:15 BUN 22 mg/dL (7-18) H 10/13/18 14:15 Creatinine 1.47 mg/dL (0.55-1.02) H 10/13/18 14:15 Est GFR (MDRD) Af Amer 46 mL/min (>60) L 10/13/18 14:15 Est GFR (MDRD) Non-Af 38 mL/min (>60) L 10/13/18 14:15 BUN/Creatinine Ratio 15.0 RATIO (10-20) 10/13/18 14:15 Glucose 104 mg/dL (74-106) 10/13/18 14:15 Assessment/Plan: 1) Pain APAP for mild pain, cyclobenzaprine for spasms. Continue to monitor prn medication use, daily pain scores. 2) AFib/HTN Amlodipine, amiodarone, apixaban, losartan, HCTZ, metoprolol. Continue to monitor BP/HR, renal function, electrolytes. 3) Stroke ASA, atorvastatin. Continue to monitor lipids, s/s stroke. 4) DM2 Metformin, linagliptin, glimepiride. Continue to monitor renal function, BGT, s/s hyper/hypoglycemia. 5) Tolterodine. Continue to monitor for symptoms. 6) Sleep Melatonin at HS. Continue to monitor for insomnia. Psychotropic Medications: 7) Depression Sertraline. Continue to monitor s/s depression. Unnecessary Medications: None Bowel Regimen: 8) Senna, PEG, prn bisacodyl. Continue to monitor prn medication use, for constipation/diarrhea. Date of Note:: 10/16/18 - Provider Comments Provider responsibility: Provider responsible to enter orders to implement recommendations <Mg Ramirez Chi - Last Filed: 10/16/18 08:30> Progress Note - Pharmacy Subjective: [] Objective: Allergies fosinopril [From Monopril] Allergy (Unknown, Verified 10/03/18 14:25) unknown pioglitazone Adverse Reaction (Verified 10/03/18 14:25) Other Current Medications Generic Name Dose Route Start Last Admin Trade Name Freq PRN Reason Stop Dose Admin Acetaminophen 1,000 mg 10/10/18 21:23 10/12/18 15:49 Tylenol PO 1,000 mg Q6H PRN PRN Administration MILD PAIN (1-3/10) Amiodarone HCl 200 mg 10/10/18 18:00 10/16/18 06:05 Cordarone PO 10/24/18 19:00 200 mg BID ROSALIND Administration Amiodarone HCl 200 mg 10/25/18 06:00 Cordarone PO DAILY ROSALIND Amlodipine Besylate 10 mg 10/11/18 06:00 10/16/18 06:06 Norvasc PO 10 mg DAILY ROSALIND Administration Apixaban 5 mg 10/10/18 18:00 10/16/18 06:05 Eliquis PO 5 mg BID ROSALIND Administration Aspirin 81 mg 10/11/18 08:00 10/16/18 07:40 [facility] Atorvastatin Calcium 10 mg 10/10/18 22:00 10/15/18 20:30 Lipitor PO 10 mg QHS ROSALIND Administration Bisacodyl 10 mg 10/10/18 17:43 10/13/18 22:21 Dulcolax PO 10 mg DAILY PRN Administration Constipation Cyclobenzaprine HCl 5 - 10 mg 10/10/18 17:29 Cyclobenzaprine Hcl PO TID PRN PRN SPASMS Dextrose 0 gm 10/11/18 19:31 D50w Syringe IV X1 PRN Hypoglycemia Protocol Glimepiride 4 mg 10/11/18 08:00 10/16/18 07:40 Amaryl PO 4 mg BIDCM [facility] Administration Glucagon 1 mg 10/11/18 19:31 IM .X1 PRN Hypoglycemia Guaifenesin 600 mg 10/12/18 18:00 10/16/18 06:06 Mucinex PO 600 mg BID ROSALIND Administration Hydrochlorothiazide 25 mg 10/11/18 06:00 10/16/18 06:11 Hctz PO 25 mg DAILY ROSALIND Administration Linagliptin 5 mg 10/11/18 06:00 10/16/18 06:06 Tradjenta PO 5 mg DAILY ROASLIND Administration Losartan Potassium 50 mg 10/10/18 18:00 10/16/18 06:05 Cozaar PO 50 mg BID ROSALIND Administration Melatonin 10 mg 10/15/18 22:00 10/15/18 21:45 Melatonin PO 10 mg QHS ROSALIND Administration Metformin HCl 1,000 mg 10/11/18 08:00 10/16/18 07:40 Glucophage PO 1,000 mg BIDCM ROSALIND Administration Metoprolol Tartrate 25 mg 10/10/18 18:00 10/16/18 06:05 Lopressor (Beta Keanu) PO 25 mg BID ROSALIND Administration Multi-Ingredient Cream 1 applic 10/11/18 22:00 10/15/18 20:31 Eucerin TOPICAL 1 applicatio 2200 [facility] Administration Protocol Nystatin 1 applic 10/11/18 06:00 10/16/18 06:10 Mycostatin Powder TOPICAL 1 applicatio 0600,2200 [facility] Administration Protocol Polyethylene Glycol 17 gm 10/11/18 06:00 10/16/18 06:07 Miralax PO Not Given DAILY ROSALIND Senna 1 tablet 10/11/18 06:00 10/16/18 06:08 Senokot PO Not Given BID ROSALIND Sertraline HCl 150 mg 10/16/18 06:00 10/16/18 06:05 Zoloft PO 150 mg DAILY ROSALIND Administration Tolterodine Tartrate 4 mg 10/11/18 06:00 10/16/18 06:06 Detrol La PO 4 mg DAILY ROSALIND Administration Problem List (Last Reviewed 07/11/18 @ 14:55 by Dede Kasper) Back pain (Acute) Atrial fibrillation with rapid ventricular response (Acute) Urinary tract infection (Acute) Acidosis (Acute) Acute kidney injury (Acute) Osteoarthritis (Chronic) Depression (Chronic) Sleep apnea (Chronic) Overactive bladder (Chronic) Hyperlipidemia (Chronic) Vital Signs Temp Pulse Resp BP Pulse Ox 97.9 F 83 18 133/55 H 95 10/15/18 13:53 10/16/18 06:05 10/15/18 13:53 10/16/18 06:05 10/15/18 13:53 Oxygen Delivery Method Room Air Weight: 109.99 kg Body Mass Index (BMI) 42.9 Finger Stick Blood Glucose 158 Sodium 141 mmol/L (136-145) 10/13/18 14:15 Potassium 4.0 mmol/L (3.5-5.1) 10/13/18 14:15 Chloride 105 mmol/L (98-107) 10/13/18 14:15 Carbon Dioxide 27.0 mmol/L (21.0-32.0) 10/13/18 14:15 Anion Gap 9 (5-15) 10/13/18 14:15 BUN 22 mg/dL (7-18) H 10/13/18 14:15 Creatinine 1.47 mg/dL (0.55-1.02) H 10/13/18 14:15 Est GFR (MDRD) Af Amer 46 mL/min (>60) L 10/13/18 14:15 Est GFR (MDRD) Non-Af 38 mL/min (>60) L 10/13/18 14:15 BUN/Creatinine Ratio 15.0 RATIO (10-20) 10/13/18 14:15 Glucose 104 mg/dL (74-106) 10/13/18 14:15 Assessment/Plan: Psychotropic Medications: Unnecessary Medications: Bowel Regimen: - Provider Comments Provider responsibility: Provider responsible to enter orders to implement recommendations Provider Comments to Recommendations by Pharmacy: Agree
[2018-10-16] MEDS: Glimepiride 4 MG Tablet PO ×2 (07:40→16:29)
[2018-10-16] MEDS: metFORMIN HCl 1,000 MG Tablet 1000 MG PO ×2 (07:40→16:30)
[2018-10-16] MEDS: Aspirin 81 MG TAB.CHEW PO (07:40)
--- NOTE | 2018-10-16 07:52 | PHA.CONS_ITS ---
<Jose Guadalupe Spears D - Last Filed: 10/16/18 07:39> Progress Note - Pharmacy Subjective: TCU Admission Objective: Allergies fosinopril [From Monopril] Allergy (Unknown, Verified 10/03/18 14:25) unknown pioglitazone Adverse Reaction (Verified 10/03/18 14:25) Other Current Medications Generic Name Dose Route Start Last Admin Trade Name Freq PRN Reason Stop Dose Admin Acetaminophen 1,000 mg 10/10/18 21:23 10/12/18 15:49 Tylenol PO 1,000 mg Q6H PRN PRN Administration MILD PAIN (1-310) Amiodarone HCl 200 mg 10/10/18 18:00 10/16/18 06:05 Cordarone PO 10/24/18 19:00 200 mg BID ROSALIND Administration Amiodarone HCl 200 mg 10/25/18 06:00 Cordarone PO DAILY ROSALIND Amlodipine Besylate 10 mg 10/11/18 06:00 10/16/18 06:06 Norvasc PO 10 mg DAILY ROSALIND Administration Apixaban 5 mg 10/10/18 18:00 10/16/18 06:05 Eliquis PO 5 mg BID ROSALIND Administration Aspirin 81 mg 10/11/18 08:00 10/15/18 08:39 Aspirin, Baby PO 81 mg DAILYCM ROSALIND Administration Atorvastatin Calcium 10 mg 10/10/18 22:00 10/15/18 20:30 Lipitor PO 10 mg QHS ROSALIND Administration Bisacodyl 10 mg 10/10/18 17:43 10/13/18 22:21 Dulcolax PO 10 mg DAILY PRN Administration Constipation Cyclobenzaprine HCl 5 - 10 mg 10/10/18 17:29 Cyclobenzaprine Hcl PO TID PRN PRN SPASMS Dextrose 0 gm 10/11/18 19:31 D50w Syringe IV X1 PRN Hypoglycemia Protocol Glimepiride 4 mg 10/11/18 08:00 10/15/18 17:12 Amaryl PO 4 mg BIDCM ROSALIND Administration Glucagon 1 mg 10/11/18 19:31 IM .X1 PRN Hypoglycemia Guaifenesin 600 mg 10/12/18 18:00 10/16/18 06:06 Mucinex PO 600 mg BID ROSALIND Administration Hydrochlorothiazide 25 mg 10/11/18 06:00 10/16/18 06:11 Hctz PO 25 mg DAILY ROSALIND Administration Linagliptin 5 mg 10/11/18 06:00 10/16/18 06:06 Tradjenta PO 5 mg DAILY ROSALIND Administration Losartan Potassium 50 mg 10/10/18 18:00 10/16/18 06:05 Cozaar PO 50 mg BID ROSALIND Administration Melatonin 10 mg 10/15/18 22:00 10/15/18 21:45 Melatonin PO 10 mg QHS ROSALIND Administration Metformin HCl 1,000 mg 10/11/18 08:00 10/15/18 17:12 Glucophage PO 1,000 mg BIDCM ROSALIND Administration Metoprolol Tartrate 25 mg 10/10/18 18:00 10/16/18 06:05 Lopressor (Beta Keanu) PO 25 mg BID ROSALIND Administration Multi-Ingredient Cream 1 applic 10/11/18 22:00 10/15/18 20:31 Eucerin TOPICAL 1 applicatio 2200 [facility] Administration Protocol Nystatin 1 applic 10/11/18 06:00 10/16/18 06:10 Mycostatin Powder TOPICAL 1 applicatio 0600,2200 [facility] Administration Protocol Polyethylene Glycol 17 gm 10/11/18 06:00 10/16/18 06:07 Miralax PO Not Given DAILY ROSALIND Senna 1 tablet 10/11/18 06:00 10/16/18 06:08 Senokot PO Not Given BID ROSALIND Sertraline HCl 150 mg 10/16/18 06:00 10/16/18 06:05 Zoloft PO 150 mg DAILY ROSALIND Administration Tolterodine Tartrate 4 mg 10/11/18 06:00 10/16/18 06:06 Detrol La PO 4 mg DAILY ROSALIND Administration Problem List (Last Reviewed 07/11/18 @ 14:55 by Dede Kasper) Back pain (Acute) Atrial fibrillation with rapid ventricular response (Acute) Urinary tract infection (Acute) Acidosis (Acute) Acute kidney injury (Acute) Osteoarthritis (Chronic) Depression (Chronic) Sleep apnea (Chronic) Overactive bladder (Chronic) Hyperlipidemia (Chronic) Vital Signs Temp Pulse Resp BP Pulse Ox 97.9 F 83 18 133/55 H 95 10/15/18 13:53 10/16/18 06:05 10/15/18 13:53 10/16/18 06:05 10/15/18 13:53 Oxygen Delivery Method Room Air Weight: 109.99 kg Body Mass Index (BMI) 42.9 Finger Stick Blood Glucose 158 Sodium 141 mmol/L (136-145) 10/13/18 14:15 Potassium 4.0 mmol/L (3.5-5.1) 10/13/18 14:15 Chloride 105 mmol/L (98-107) 10/13/18 14:15 Carbon Dioxide 27.0 mmol/L (21.0-32.0) 10/13/18 14:15 Anion Gap 9 (5-15) 10/13/18 14:15 BUN 22 mg/dL (7-18) H 10/13/18 14:15 Creatinine 1.47 mg/dL (0.55-1.02) H 10/13/18 14:15 Est GFR (MDRD) Af Amer 46 mL/min (>60) L 10/13/18 14:15 Est GFR (MDRD) Non-Af 38 mL/min (>60) L 10/13/18 14:15 BUN/Creatinine Ratio 15.0 RATIO (10-20) 10/13/18 14:15 Glucose 104 mg/dL (74-106) 10/13/18 14:15 Assessment/Plan: 1) Pain APAP for mild pain, cyclobenzaprine for spasms. Continue to monitor prn medication use, daily pain scores. 2) AFib/HTN Amlodipine, amiodarone, apixaban, losartan, HCTZ, metoprolol. Continue to monitor BP/HR, renal function, electrolytes. 3) Stroke ASA, atorvastatin. Continue to monitor lipids, s/s stroke. 4) DM2 Metformin, linagliptin, glimepiride. Continue to monitor renal function, BGT, s/s hyper/hypoglycemia. 5) Tolterodine. Continue to monitor for symptoms. 6) Sleep Melatonin at HS. Continue to monitor for insomnia. Psychotropic Medications: 7) Depression Sertraline. Continue to monitor s/s depression. Unnecessary Medications: None Bowel Regimen: 8) Senna, PEG, prn bisacodyl. Continue to monitor prn medication use, for constipation/diarrhea. Date of Note:: 10/16/18 - Provider Comments Provider responsibility: Provider responsible to enter orders to implement recommendations <Mg Ramirez Chi - Last Filed: 10/16/18 08:30> Progress Note - Pharmacy Subjective: [] Objective: Allergies fosinopril [From Monopril] Allergy (Unknown, Verified 10/03/18 14:25) unknown pioglitazone Adverse Reaction (Verified 10/03/18 14:25) Other Current Medications Generic Name Dose Route Start Last Admin Trade Name Freq PRN Reason Stop Dose Admin Acetaminophen 1,000 mg 10/10/18 21:23 10/12/18 15:49 Tylenol PO 1,000 mg Q6H PRN PRN Administration MILD PAIN (1-3/10) Amiodarone HCl 200 mg 10/10/18 18:00 10/16/18 06:05 Cordarone PO 10/24/18 19:00 200 mg BID ROSALIND Administration Amiodarone HCl 200 mg 10/25/18 06:00 Cordarone PO DAILY ROSALIND Amlodipine Besylate 10 mg 10/11/18 06:00 10/16/18 06:06 Norvasc PO 10 mg DAILY ROSALIND Administration Apixaban 5 mg 10/10/18 18:00 10/16/18 06:05 Eliquis PO 5 mg BID ROSALIND Administration Aspirin 81 mg 10/11/18 08:00 10/16/18 07:40 [facility] Atorvastatin Calcium 10 mg 10/10/18 22:00 10/15/18 20:30 Lipitor PO 10 mg QHS ROSALIND Administration Bisacodyl 10 mg 10/10/18 17:43 10/13/18 22:21 Dulcolax PO 10 mg DAILY PRN Administration Constipation Cyclobenzaprine HCl 5 - 10 mg 10/10/18 17:29 Cyclobenzaprine Hcl PO TID PRN PRN SPASMS Dextrose 0 gm 10/11/18 19:31 D50w Syringe IV X1 PRN Hypoglycemia Protocol Glimepiride 4 mg 10/11/18 08:00 10/16/18 07:40 Amaryl PO 4 mg BIDCM [facility] Administration Glucagon 1 mg 10/11/18 19:31 IM .X1 PRN Hypoglycemia Guaifenesin 600 mg 10/12/18 18:00 10/16/18 06:06 Mucinex PO 600 mg BID ROSALIND Administration Hydrochlorothiazide 25 mg 10/11/18 06:00 10/16/18 06:11 Hctz PO 25 mg DAILY ROSALIND Administration Linagliptin 5 mg 10/11/18 06:00 10/16/18 06:06 Tradjenta PO 5 mg DAILY ROSALIND Administration Losartan Potassium 50 mg 10/10/18 18:00 10/16/18 06:05 Cozaar PO 50 mg BID ROSALIND Administration Melatonin 10 mg 10/15/18 22:00 10/15/18 21:45 Melatonin PO 10 mg QHS ROSALIND Administration Metformin HCl 1,000 mg 10/11/18 08:00 10/16/18 07:40 Glucophage PO 1,000 mg BIDCM ROSALIND Administration Metoprolol Tartrate 25 mg 10/10/18 18:00 10/16/18 06:05 Lopressor (Beta Keanu) PO 25 mg BID ROSALIND Administration Multi-Ingredient Cream 1 applic 10/11/18 22:00 10/15/18 20:31 Eucerin TOPICAL 1 applicatio 2200 [facility] Administration Protocol Nystatin 1 applic 10/11/18 06:00 10/16/18 06:10 Mycostatin Powder TOPICAL 1 applicatio 0600,2200 [facility] Administration Protocol Polyethylene Glycol 17 gm 10/11/18 06:00 10/16/18 06:07 Miralax PO Not Given DAILY ROSALIND Senna 1 tablet 10/11/18 06:00 10/16/18 06:08 Senokot PO Not Given BID ROSALIND Sertraline HCl 150 mg 10/16/18 06:00 10/16/18 06:05 Zoloft PO 150 mg DAILY ROSALIND Administration Tolterodine Tartrate 4 mg 10/11/18 06:00 10/16/18 06:06 Detrol La PO 4 mg DAILY ROSALIND Administration Problem List (Last Reviewed 07/11/18 @ 14:55 by Dede Kasper) Back pain (Acute) Atrial fibrillation with rapid ventricular response (Acute) Urinary tract infection (Acute) Acidosis (Acute) Acute kidney injury (Acute) Osteoarthritis (Chronic) Depression (Chronic) Sleep apnea (Chronic) Overactive bladder (Chronic) Hyperlipidemia (Chronic) Vital Signs Temp Pulse Resp BP Pulse Ox 97.9 F 83 18 133/55 H 95 10/15/18 13:53 10/16/18 06:05 10/15/18 13:53 10/16/18 06:05 10/15/18 13:53 Oxygen Delivery Method Room Air Weight: 109.99 kg Body Mass Index (BMI) 42.9 Finger Stick Blood Glucose 158 Sodium 141 mmol/L (136-145) 10/13/18 14:15 Potassium 4.0 mmol/L (3.5-5.1) 10/13/18 14:15 Chloride 105 mmol/L (98-107) 10/13/18 14:15 Carbon Dioxide 27.0 mmol/L (21.0-32.0) 10/13/18 14:15 Anion Gap 9 (5-15) 10/13/18 14:15 BUN 22 mg/dL (7-18) H 10/13/18 14:15 Creatinine 1.47 mg/dL (0.55-1.02) H 10/13/18 14:15 Est GFR (MDRD) Af Amer 46 mL/min (>60) L 10/13/18 14:15 Est GFR (MDRD) Non-Af 38 mL/min (>60) L 10/13/18 14:15 BUN/Creatinine Ratio 15.0 RATIO (10-20) 10/13/18 14:15 Glucose 104 mg/dL (74-106) 10/13/18 14:15 Assessment/Plan: Psychotropic Medications: Unnecessary Medications: Bowel Regimen: - Provider Comments Provider responsibility: Provider responsible to enter orders to implement recommendations Provider Comments to Recommendations by Pharmacy: Agree
[2018-10-16 11:01] LABS: Bedside Glucose 243 mg/dL (70-110)
[2018-10-16 16:00] VITALS: BP 116/56; PULSE 76; RESP 20; TEMP 36.3; O2SAT 95
[2018-10-16 16:29] VITALS: PULSE 76
--- NOTE | 2018-10-16 16:34 | CASEMGMT ---
Social Work Pt requesting to return home. SW met with pt and pt stating her sister is coming into town tomorrow and will be staying with her for several weeks. Pt feels she is ready for d/c tomorrow. SW spoke with team and they are agreeable to d/c and are recommending out patient PT/OT. Pt is agreeable and would like to go to [facility] [place]. Pt has a walker and rollator and states no other DME is needed at this time. Pt sisters will provide assist at home with errands and meal prep. Pt sister will transport her home. VM left at [facility] [place] and referral made. Will fax orders when obtained. Plan: Home with help from family. Out patient PT/OT at [facility] [place] MARGOT Gayle
[2018-10-16 16:46] LABS: Bedside Glucose 209 mg/dL (70-110)
--- NOTE | 2018-10-16 17:52 | NURSING ---
DR. FROST AWARE OF URINE CX PRELIM.
--- NOTE | 2018-10-16 20:57 | DCINST_ITS ---
- Discharge Diagnoses Current Active Problems: Current Active and Chronic Problems (Last Reviewed 07/11/18 @ 14:55 by Dede Kasper) Back pain (Acute) Atrial fibrillation with rapid ventricular response (Acute) Urinary tract infection (Acute) Acidosis (Acute) Acute kidney injury (Acute) Osteoarthritis (Chronic) Depression (Chronic) Sleep apnea (Chronic) Overactive bladder (Chronic) Hyperlipidemia (Chronic) You will use the following diet at home:: No restrictions, Regular Your food should be the consistency of: Regular Your liquids should be the consistency of: Regular/Thin Discharge Activity: Return to Normal Activity, May Shower, Use Walker Weight Bearing Status: Weight bearing as tolerated Call your doctor if you observe: Fever of 101 or Higher, Inability to urinate, Inability to have a bowel movement, Shortness of breath, Chest pain, Uncontrolled pain Allergies/Adverse Reactions: Allergies fosinopril [From Monopril] Allergy (Unknown, Verified 10/03/18 14:25) unknown pioglitazone Adverse Reaction (Verified 10/03/18 14:25) Other Medications to take at Discharge aspirin 81 mg chewable tablet 81 mg PO DAILY 07/11/18 glimepiride 4 mg tablet 4 mg PO BID tab 07/11/18 losartan 50 mg tablet 50 mg PO BID tab 07/11/18 metformin 1,000 mg tablet 1,000 mg PO BID 07/11/18 oxybutynin chloride ER 15 mg tablet,extended release 24 hr 15 mg PO DAILY 07/11/18 sertraline 100 mg tablet 100 mg PO DAILY 07/11/18 sitagliptin 100 mg tablet 100 mg PO DAILY 07/11/18 Acetaminophen [Tylenol] 500 mg PO Q6H PRN PRN 10/03/18 Cyclobenzaprine HCl 5 - 10 mg PO TID PRN PRN 10/03/18 Metoprolol Tartrate [Lopressor (beta fritz)] 25 mg PO BID 10/03/18 Simvastatin [Zocor] 20 mg PO QHS 10/03/18 Amiodarone HCl [Cordarone] 200 mg PO BID tablet 10/16/18 Amiodarone HCl [Cordarone] 200 mg PO BID #14 tablet 10/16/18 Amiodarone HCl [Cordarone] 200 mg PO DAILY #30 tablet 10/16/18 Amlodipine [Norvasc] 10 mg PO DAILY #30 tablet 06/03/19 Apixaban [Eliquis] 5 mg PO BID #60 tablet 10/16/18 Guaifenesin [Mucinex] 600 mg PO BID tablet 10/16/18 Hydrochlorothiazide [Hctz] 25 mg PO DAILY #30 tablet 10/16/18 Melatonin 10 mg PO QHS #30 tablet 10/16/18 Mineral Oil/Petrolatum,White [Eucerin] 1 applic TOPICAL 2200 jar 10/16/18 Nystatin Powder [Mycostatin Powder] 1 applic TOPICAL 0600,2200 bottle 10/16/18 The following prescriptions were given: Amiodarone HCl [Cordarone] 200 mg PO DAILY #30 tablet Amlodipine [Norvasc] 10 mg PO DAILY #30 tablet Hydrochlorothiazide [Hctz] 25 mg PO DAILY #30 tablet Melatonin 10 mg PO QHS #30 tablet Amiodarone HCl [Cordarone] 200 mg PO BID #14 tablet Apixaban [Eliquis] 5 mg PO BID #60 tablet Primary Care Physician: Lesley Yoder MD [Primary Care Provider] - Please follow up with your Primary Care Physician in: 1 week. Test Results: Test results from this visit will be discussed in further detail at your follow- up appointment, if applicable. Please Follow Up With: Dr Ortiz/Bernice Wong [employer] When: 2 weeks. Please Follow Up With: Dr Wesley When: 2 weeks. Please Follow Up With: Dr Thorpe/Meka Whitehead [employer] When: 2 weeks. Please Follow Up With: Dr Cordero When: 2 weeks. Proposed Discharge Date: 10/17/18
--- NOTE | 2018-10-16 20:58 | DS.PCM_ITS ---
Discharge Date and Diagnosis - Problem List Patient Problems: Active and Suspected Problems (Last Reviewed 07/11/18 @ 14:55 by Dede Kasper) Back pain (Acute) Atrial fibrillation with rapid ventricular response (Acute) Urinary tract infection (Acute) Acidosis (Acute) Acute kidney injury (Acute) Date of Admission: 10/10/18 Date of Discharge: 10/17/18 - Primary Discharge Diagnosis Active and Suspected Problems (Last Reviewed 07/11/18 @ 14:55 by Dede Kasper) Back pain (Acute) Atrial fibrillation with rapid ventricular response (Acute) Urinary tract infection (Acute) Acidosis (Acute) Acute kidney injury (Acute) - Secondary Discharge Diagnosis Chronic Problems (Last Reviewed 07/11/18 @ 14:55 by Dede Kasper) HTN (hypertension) (Chronic) Diabetes mellitus (Chronic) Osteoarthritis (Chronic) Depression (Chronic) Sleep apnea (Chronic) Overactive bladder (Chronic) Hyperlipidemia (Chronic) Hospital Course and Treatment Imaging Results: 10/10/18 17:41 Diet: Cardiac/Low Cholesterol Food consistency:: Regular Liquid Consistency:: Regular/Thin Is pt able to select menu?: Yes Diet Comments: 1600 calorie; MEDS OK WHOLE WITH LIQUIDS Clinical Impression(s) from Imaging Studies Chest X-Ray 10/13/18 13:58 IMPRESSION: The CHF has resolved. Residual atelectasis at the lung bases worse on the right side. Blunting of both costophrenic angles. Electronically Signed: Jordan Jones, at 15:18 EDT , Service support , Abdomen X-Ray 10/13/18 14:35 IMPRESSION: Moderate amount of fecal material is seen in the colon. Findings suggestive of bibasilar linear atelectasis. Electronically Signed: Jordan Jones, at 15:19 EDT , Service support , Labs (Last 48 Hours) 10/14/18 10/15/18 10/15/18 21:22 06:13 11:10 POC Glucose 108 100 221 H 10/15/18 10/15/18 10/16/18 16:59 21:07 06:08 POC Glucose 171 H 244 H 194 H 10/16/18 10/16/18 10:51 16:08 POC Glucose 243 H 209 H Microbiology 10/13/18 13:30 Urine, Catheterized Urine Culture - Preliminary Gram positive organism Operations: None Procedures: None Summary of Care Provided: The patient is a 68 year old Fmale with below past medical history hospitalized for acute kidney injury, complicated by atrial fibrillation with RVR, bilateral pneumonia, urinary tract infection, Diabetic ketoacidosis, admitted to TCU with debility, here for rehabilitation, strengthening, prior to discharge home alone. Discharge home alone with family support, outpatient PT[facility]OT at [facility]. Patient Problems: Active and Suspected Problems (Last Reviewed 07/11/18 @ 14:55 by Dede Kasper) Back pain (Acute) Atrial fibrillation with rapid ventricular response (Acute) Urinary tract infection (Acute) Acidosis (Acute) Acute kidney injury (Acute) - Physical Exam Vital Signs Temp Pulse Resp BP Pulse Ox 97.4 F L 76 20 H 116/56 L 95 10/16/18 16:00 10/16/18 16:29 10/16/18 16:00 10/16/18 16:00 10/16/18 16:00 Oxygen Delivery Method Room Air Weight: 109.99 kg Body Mass Index (BMI) 42.9 Finger Stick Blood Glucose 158 Intake and Output for Last 24 Hours 10/14/18 10/15/18 10/16/18 23:59 23:59 23:59 Intake Total 680 / 680 120 / 120 720 / 720 Balance 680 / 680 120 / 120 720 / 720 Microbiology Past 72 Hours 10/13/18 13:30 Urine Culture - Preliminary Urine, Catheterized Gram positive organism POC Glucose 10/16/18 10/16/18 10/16/18 16:08 10:51 06:08 POC Glucose 209 H 243 H 194 H 10/15/18 21:07 POC Glucose 244 H Discharge Diet: No Restrictions Discharge Activity: Return to Normal Activity, May Shower, Use Walker Weight Bearing Status: Weight bearing as tolerated Call your doctor if you observe: Fever of 101 or Higher, Inability to urinate, Inability to have a bowel movement, Shortness of breath, Chest pain, Uncontrolled pain Home Medications: Medications to take at Discharge aspirin 81 mg chewable tablet 81 mg PO DAILY 07/11/18 glimepiride 4 mg tablet 4 mg PO BID tab 07/11/18 losartan 50 mg tablet 50 mg PO BID tab 07/11/18 metformin 1,000 mg tablet 1,000 mg PO BID 07/11/18 oxybutynin chloride ER 15 mg tablet,extended release 24 hr 15 mg PO DAILY 07/11/18 sertraline 100 mg tablet 100 mg PO DAILY 07/11/18 sitagliptin 100 mg tablet 100 mg PO DAILY 07/11/18 Acetaminophen [Tylenol] 500 mg PO Q6H PRN PRN 10/03/18 Cyclobenzaprine HCl 5 - 10 mg PO TID PRN PRN 10/03/18 Metoprolol Tartrate [Lopressor (beta fritz)] 25 mg PO BID 10/03/18 Simvastatin [Zocor] 20 mg PO QHS 10/03/18 Amiodarone HCl [Cordarone] 200 mg PO BID tablet 10/16/18 Amiodarone HCl [Cordarone] 200 mg PO BID #14 tablet 10/16/18 Amiodarone HCl [Cordarone] 200 mg PO DAILY #30 tablet 10/16/18 Amlodipine [Norvasc] 10 mg PO DAILY #30 tablet 10/16/18 Apixaban [Eliquis] 5 mg PO BID #60 tablet 10/16/18 Guaifenesin [Mucinex] 600 mg PO BID tablet 10/16/18 Hydrochlorothiazide [Hctz] 25 mg PO DAILY #30 tablet 10/16/18 Melatonin 10 mg PO QHS #30 tablet 10/16/18 Mineral Oil/Petrolatum,White [Eucerin] 1 applic TOPICAL 2200 jar 10/16/18 Nystatin Powder [Mycostatin Powder] 1 applic TOPICAL 0600,2200 bottle 10/16/18 Following Prescrptions Were Given to Patient: Amiodarone HCl [Cordarone] 200 mg PO DAILY #30 tablet Amlodipine [Norvasc] 10 mg PO DAILY #30 tablet Hydrochlorothiazide [Hctz] 25 mg PO DAILY #30 tablet Melatonin 10 mg PO QHS #30 tablet Amiodarone HCl [Cordarone] 200 mg PO BID #14 tablet Apixaban [Eliquis] 5 mg PO BID #60 tablet Primary Care Physician: Lesley Yoder MD [Primary Care Provider] - Please follow up with your Primary Care Physician in: 1 week. Please Follow Up With: Dr Ortiz/Bernice Wong AUCTION BLOCK CLERK When: 2 weeks. Please Follow Up With: Dr Wesley When: 2 weeks. Please Follow Up With: Dr Thorpe/Meka Whitehead AUCTION BLOCK CLERK When: 2 weeks. Please Follow Up With: Dr Cordero When: 2 weeks. Disposition: Home Minutes spent on discharge:: 30 Patient Condition:: Stable Medical Necessity - Tobacco Use Smoking Status: Never smoker Tobacco Use: Non-smoker Meaningful Use Info Meaningful Use Diagnoses (Choose all that apply): None applicable
[2018-10-16] MEDS: Atorvastatin Calcium 10 MG Tablet PO (21:03)
[2018-10-16] MEDS: MELATONIN 10 MG TABLET PO (21:03)
[2018-10-16 21:16] LABS: Bedside Glucose 163 mg/dL (70-110)
[2018-10-17 05:59] VITALS: BP 139/63; PULSE 74
[2018-10-17] MEDS: Metoprolol Tartrate 25 MG Tablet PO (05:59)
[2018-10-17] MEDS: LINAGLIPTIN 5 MG TABLET PO (05:59)
[2018-10-17] MEDS: amLODIPine 10 MG Tablet PO (05:59)
[2018-10-17] MEDS: guaiFENesin 600 MG Tablet PO (05:59)
[2018-10-17] MEDS: Sertraline 50 MG Tablet 150 MG PO (05:59)
[2018-10-17] MEDS: Losartan Potassium 50 MG Tablet PO (06:00)
[2018-10-17] MEDS: Amiodarone 200 MG Tablet PO (06:00)
[2018-10-17] MEDS: Tolterodine Tartrate 4 MG CAP.SA PO (06:00)
[2018-10-17] MEDS: APIXABAN 5 MG TABLET PO (06:00)
[2018-10-17] MEDS: hydroCHLOROthiazide 25 MG Tablet PO (06:00)
[2018-10-17] MEDS: Nystatin Powder 15gm Bottle 1 APPLIC TOPICAL (06:05)
[2018-10-17 06:51] LABS: Bedside Glucose 128 mg/dL (70-110)
[2018-10-17] MEDS: Glimepiride 4 MG Tablet PO (08:32)
[2018-10-17] MEDS: metFORMIN HCl 1,000 MG Tablet 1000 MG PO (08:32)
[2018-10-17] MEDS: Aspirin 81 MG TAB.CHEW PO (08:32)
[2018-10-17 10:52] VITALS: BP 136/78; PULSE 80; RESP 20; TEMP 37; O2SAT 94
--- NOTE | 2018-10-17 11:25 | CASEMGMT ---
Insurance Notified insurance that pt d/c on 10/17/18 with out patient OT/PT. Auth# [id number] MARGOT Gayle
--- NOTE | 2018-10-17 16:33 | CASEMGMT ---
Social Work Completed Advance Directives with patient. Original provided to patient and copy placed in chart. Parul Haq MSW [employer] DEPOSITING MACHINE TENDER
--- NOTE | 2018-10-20 06:51 | MDS.RN ---
Information for the mds was obtained from review of the clinical record, interview of resident, staff, and direct observation of resident's care.
== END 2018-10-17 10:53 | disposition home or self-care (01) | DRG 947 ==
PROVIDERS: Admitting Provider Family Medicine Geriatric Medicine; Family Provider Internal Medicine; PCP Internal Medicine; Visit Provider Family Medicine Geriatric Medicine
DX: R53.81 Other malaise (principal); J18.9 Pneumonia, unspecified organism; N39.0 Urinary tract infection, site not specified; E78.5 Hyperlipidemia, unspecified; I10 Essential (primary) hypertension; I48.91 Unspecified atrial fibrillation; M19.90 Unspecified osteoarthritis, unspecified site; N32.81 Overactive bladder; G47.30 Sleep apnea, unspecified; E11.9 Type 2 diabetes mellitus without complications; F32.9 Major depressive disorder, single episode, unspecified; F41.9 Anxiety disorder, unspecified
CPT/HCPCS: 36415; 71046; 74019; 80048; 81001; 82962; 85025; 87086; 87088; 92507; 92523; 92610; 97110; 97116; 97163; 97166; 97530; 97535; 97802

== ENCOUNTER → 2018-11-22 | Outpatient (CLI) | payer MEDICARE, SELFPAY ==
[2018-11-08 16:03] VITALS: BMI 40.5
--- NOTE | 2018-11-22 10:01 | STRESSREP_ITS ---
Stress Test Report Date: 11-22-18 Procedure: Pharmacologic stress nuclear imaging study Indications: Atrial fibrillation Consent: Per the patient Procedure: The patient underwent pharmacologic (Regadenoson) evaluation with a peak heart rate of 94 beats per minute (61 %predicted maximal heart rate) and a peak blood pressure of 160/80 mmHg. The baseline ECG demonstrated sinus rhythm. The peak pharmacologic ECG demonstrated no obvious ECG changes. There were no cardiac dysrhythmias pretest, during pharmacologic infusion, or recovery. There was no complaint of chest discomfort during pharmacologic infusion or recovery. The examination was discontinued secondary to completion of protocol. Impression: 1. Pharmacologic (Regadenoson) evaluation 2. Peak pharmacologic ECG with no obvious ECG changes. 3. There were no cardiac dysrhythmias pretest, during pharmacologic infusion, or recovery. 4. Nuclear images pending Myocardial perfusion imaging study: Technique: The patient was injected with 14.1 millicuries of technetium 99m Cardiolite and subsequently rest SPECT Cardiolite nuclear imaging was obtained in the horizontal long, vertical long, and short axis views. The patient underwent pharmacologic (Regadenoson) evaluation with a peak heart rate of 94 beats per minute (61 % percent predicted maximal heart rate) and a peak blood pressure of 160/80 mmHg. The patient was injected with 44.3 millicuries of technetium 99m Cardiolite and subsequently stress SPECT Cardiolite nuclear imaging was obtained in the horizontal long, vertical long, and short axis views. A gated Cardiolite study at peak stress was obtained. Interpretation: Rest and stress SPECT Cardiolite nuclear imaging status post realignment, normalization, and attenuation correction demonstrate relative uniform tracer uptake and myocardial perfusion appearing within normal limits. There is end systolic thickening and brightening. The gated Cardiolite study demonstrates myocardial thickening and inward wall motion. The reported LVEF is 78 %. Impression: 1. Rest and stress SPECT Cardiolite nuclear imaging demonstrate relative uniform tracer uptake and myocardial perfusion appearing within normal limits. 2. The gated Cardiolite study reports an LVEF of 78 %. This note was generated with [employer] software. It may contain incorrect words, spelling, and punctuation that were not noted in checking the note before signing.
[2018-11-22 11:56] LABS: Anion Gap 8 (5-15); BUN 33 mg/dL (7-18); BUN/Creat Ratio 26.8 RATIO (10-20); Calcium,Total 9.1 mg/dL (8.5-10.1); Chloride 106 mmol/L (98-107); Creatinine, Serum 1.23 mg/dL (0.55-1.02); EST Glomerular Filtration Rate 46 mL/min (>60); Est Glom Filt Rate - Afr Amer 56 mL/min (>60); Glucose 157 mg/dL (74-106); Potassium 4.2 mmol/L (3.5-5.1); Sodium Level 140 mmol/L (136-145)
== END | disposition home or self-care (01) ==
PROVIDERS: Family Provider Internal Medicine; PCP Internal Medicine; Referring Provider Internal Medicine Cardiovascular Disease; Visit Provider Internal Medicine Cardiovascular Disease
DX: N17.9 Acute kidney failure, unspecified (principal); Z79.899 Other long term (current) drug therapy; I48.0 Paroxysmal atrial fibrillation; R06.00 Dyspnea, unspecified
CPT/HCPCS: 36415; 78452; 80048; 83735; 93017; A9500; A4216; J2785

== ENCOUNTER → 2019-01-10 | Outpatient (CLI) | payer MEDICARE, SELFPAY ==
[2019-01-04 14:44] VITALS: BMI 40.5
[2019-01-10 12:10] LABS: Absolute Lymphocyte Count 1.57 X10^3/uL (0.83-4.51); Absolute Neutrophil Count 6.3 X10^3/uL (2.0-7.7); Basophil# 0.04 X10^3/uL; Basophil% 0.5 % (0-1); Eosinophils% 2.3 % (0-5); Hematocrit 35.8 % (37-47); Hemoglobin 11.2 g/dL (12.0-15.0); Lymphocyte # 1.57 X10^3/ul (4.0); Lymphocyte % 18.3 % (19-41); Mean Corp Hgb Conc 31.3 g/dL (32-36); Mean Corpuscular Hgb 27.3 pg (27.0-32.0); Mean Corpuscular Volume 87.3 fL (81-99); Mean Platelet Vol. 10.3 fl (6.2-12.0); Monocyte# 0.39 X10^3/uL; Monocyte% 4.6 % (0-10); NRBC Flagged by Analyzer 0 % (0-5); Neutrophil # 6.33 X10^3/uL (2.7-7.7); Neutrophil % 73.8 % (47-70); Platelet Count 274 K/mm3 (150-450); RBC Distribution Width CV 14.2 % (11.6-14.6); RBC Distribution Width SD 45.4 fl (35.1-43.9); White Blood Count 8.6 K/mm3 (4.4-11.0)
[2019-01-10 13:12] LABS: ALB/GLOB Ratio 0.7 RATIO (0.9-2.4); AST(SGOT) 20 U/L (15-37); Alanine Aminotransfer ALT/SGPT 34 U/L (13-56); Albumin, Serum 3.3 g/dL (3.2-5.0); Alkaline Phosphatase 70 U/L (45-117); Anion Gap 10 (5-15); BUN 26 mg/dL (7-18); BUN/Creat Ratio 19.1 RATIO (10-20); Calcium,Total 9.2 mg/dL (8.5-10.1); Chloride 109 mmol/L (98-107); Creatinine, Serum 1.36 mg/dL (0.55-1.02); EST Glomerular Filtration Rate 41 mL/min (>60); Est Glom Filt Rate - Afr Amer 50 mL/min (>60); Globulin 4.6 g/dL (2.2-4.2); Glucose 146 mg/dL (74-106); Potassium 4.5 mmol/L (3.5-5.1); Protein, Total 7.9 g/dL (6.4-8.2); Sodium Level 143 mmol/L (136-145)
== END | disposition home or self-care (01) ==
LOC: BIMLAB 11:41
PROVIDERS: PCP Internal Medicine; Visit Provider Internal Medicine
DX: I10 Essential (primary) hypertension (principal); E11.10 Type 2 diabetes mellitus with ketoacidosis without coma; I48.91 Unspecified atrial fibrillation
CPT/HCPCS: 36415; 80053; 85025

== ENCOUNTER → 2019-10-09 | Outpatient (CLI) | payer MEDICARE, OTHER, SELFPAY ==
[2019-10-09 15:11] VITALS: BMI 41.1
[2019-10-09 18:07] LABS: Absolute Lymphocyte Count 0.71 X10^3/uL (0.83-4.51); Absolute Neutrophil Count 7.5 X10^3/uL (2.0-7.7); Basophil# 0.03 X10^3/uL; Basophil% 0.3 % (0-1); Eosinophil# 0.14 X10^3/uL; Eosinophils% 1.6 % (0-5); Hematocrit 34.3 % (37-47); Hemoglobin 10.6 g/dL (12.0-15.0); Lymphocyte # 0.71 X10^3/ul (4.0); Mean Corp Hgb Conc 30.9 g/dL (32-36); Mean Corpuscular Hgb 26.4 pg (27.0-32.0); Mean Corpuscular Volume 85.3 fL (81-99); Mean Platelet Vol. 10.4 fl (6.2-12.0); Monocyte# 0.43 X10^3/uL; Monocyte% 4.9 % (0-10); NRBC Flagged by Analyzer 0 % (0-5); Neutrophil % 84.6 % (47-70); Platelet Count 359 K/mm3 (150-450); RBC Distribution Width CV 14.1 % (11.6-14.6); RBC Distribution Width SD 44.3 fl (35.1-43.9); Red Blood Count 4.02 M/mm3 (4.2-5.4); White Blood Count 8.9 K/mm3 (4.4-11.0)
[2019-10-09 18:19] LABS: ALB/GLOB Ratio 0.6 RATIO (0.9-2.4); AST(SGOT) 19 U/L (15-37); Alanine Aminotransfer ALT/SGPT 24 U/L (13-56); Albumin, Serum 3.1 g/dL (3.2-5.0); Alkaline Phosphatase 85 U/L (45-117); Anion Gap 8 (5-15); BUN 20 mg/dL (7-18); BUN/Creat Ratio 16.7 RATIO (10-20); Calcium,Total 9.4 mg/dL (8.5-10.1); Chloride 104 mmol/L (98-107); EST Glomerular Filtration Rate 48 mL/min (>60); Est Glom Filt Rate - Afr Amer 58 mL/min (>60); Globulin 5.2 g/dL (2.2-4.2); Glucose 218 mg/dL (74-106); Potassium 4.5 mmol/L (3.5-5.1); Protein, Total 8.3 g/dL (6.4-8.2); Sodium Level 136 mmol/L (136-145)
[2019-10-09 18:22] LABS: Hemoglobin A1c 6.9 % (3.8-5.6)
[2019-10-09 18:36] LABS: Microalbumin,Random Urine 68.7 mg/L (NO RANGE EST.); Microalbumin:Creatinine Ratio 41.1 mg/g CRE (<30 mg/g CRE)
[2019-10-09 19:15] LABS: Erythrocyte Sedimentation Rate 108 mm/hr (0-30)
== END | disposition home or self-care (01) ==
PROVIDERS: PCP Internal Medicine; Referring Provider Internal Medicine; Visit Provider Internal Medicine
DX: E11.9 Type 2 diabetes mellitus without complications (principal); M86.9 Osteomyelitis, unspecified
CPT/HCPCS: 80053; 82043; 82570; 83036; 85025; 85652; 86140

== ENCOUNTER → 2020-01-10 11:11 | Outpatient (CLI) | payer MEDICARE, SELFPAY ==
[2020-01-07 14:51] VITALS: BMI 36.0
[2020-01-10 12:38] LABS: Anion Gap 6 (5-15); BUN 30 mg/dL (7-18); BUN/Creat Ratio 22.7 RATIO (10-20); Calcium,Total 9.5 mg/dL (8.5-10.1); Chloride 106 mmol/L (98-107); Cholesterol 209 mg/dL (200); Creatinine, Serum 1.32 mg/dL (0.55-1.02); EST Glomerular Filtration Rate 43 mL/min (>60); Est Glom Filt Rate - Afr Amer 52 mL/min (>60); Glucose 196 mg/dL (74-106); High Density Lipoprotein 63 mg/dL; Potassium 4.2 mmol/L (3.5-5.1); Sodium Level 139 mmol/L (136-145); Triglycerides 132 mg/dL; Very Low Density Lipoprotein 26 mg/dL (5-40)
[2020-01-10 13:00] LABS: Hemoglobin A1c 6.4 % (3.8-5.6)
[2020-01-10 13:16] LABS: Microalbumin,Random Urine 30.4 mg/L (NO RANGE EST.); Microalbumin:Creatinine Ratio 23.8 mg/g CRE (<30 mg/g CRE)
== END ==
PROVIDERS: PCP Internal Medicine; Referring Provider Internal Medicine; Visit Provider Internal Medicine
DX: E11.9 Type 2 diabetes mellitus without complications (principal)
CPT/HCPCS: 36415; 80048; 80061; 82043; 82570; 83036

== ENCOUNTER → 2020-06-04 14:44 | Outpatient (CLI) | payer MEDICARE, OTHER, SELFPAY ==
[2020-03-04 13:23] VITALS: BMI 36.5
[2020-06-04 16:46] LABS: Absolute Lymphocyte Count 1.25 X10^3/uL (0.83-4.51); Absolute Neutrophil Count 5.9 X10^3/uL (2.0-7.7); Basophil# 0.04 X10^3/uL; Basophil% 0.5 % (0-1); Eosinophil# 0.22 X10^3/uL; Eosinophils% 2.8 % (0-5); Hemoglobin 11.2 g/dL (12.0-15.0); Lymphocyte # 1.25 X10^3/ul (4.0); Lymphocyte % 15.9 % (19-41); Mean Corp Hgb Conc 30.3 g/dL (32-36); Mean Corpuscular Hgb 26.2 pg (27.0-32.0); Mean Corpuscular Volume 86.4 fL (81-99); Mean Platelet Vol. 10.2 fl (6.2-12.0); Monocyte# 0.39 X10^3/uL; NRBC Flagged by Analyzer 0 % (0-5); Neutrophil # 5.94 X10^3/uL (2.7-7.7); Neutrophil % 75.4 % (47-70); Platelet Count 298 K/mm3 (150-450); RBC Distribution Width CV 14.3 % (11.6-14.6); Red Blood Count 4.28 M/mm3 (4.2-5.4); White Blood Count 7.9 K/mm3 (4.4-11.0)
[2020-06-04 17:09] LABS: ALB/GLOB Ratio 0.8 RATIO (0.9-2.4); AST(SGOT) 19 U/L (15-37); Alanine Aminotransfer ALT/SGPT 29 U/L (13-56); Albumin, Serum 3.6 g/dL (3.2-5.0); Alkaline Phosphatase 76 U/L (45-117); Anion Gap 6 (5-15); BUN 28 mg/dL (7-18); BUN/Creat Ratio 19.9 RATIO (10-20); Calcium,Total 9.4 mg/dL (8.5-10.1); Chloride 105 mmol/L (98-107); Creatinine, Serum 1.41 mg/dL (0.55-1.02); EST Glomerular Filtration Rate 39 mL/min (>60); Est Glom Filt Rate - Afr Amer 48 mL/min (>60); Globulin 4.5 g/dL (2.2-4.2); Glucose 163 mg/dL (74-106); Potassium 4.5 mmol/L (3.5-5.1); Protein, Total 8.1 g/dL (6.4-8.2); Sodium Level 138 mmol/L (136-145); T4 Free Direct 1.29 ng/dL (0.76-1.46); Thyroid Stim Hormone (TSH) 2.22 uIU/mL (0.358-3.74)
== END ==
PROVIDERS: PCP Internal Medicine; Referring Provider Internal Medicine; Visit Provider Internal Medicine
DX: E11.9 Type 2 diabetes mellitus without complications (principal); I48.0 Paroxysmal atrial fibrillation
CPT/HCPCS: 36415; 80053; 84439; 84443; 85025

== ENCOUNTER → 2020-06-19 12:54 | Outpatient (CLI) | payer MEDICARE, OTHER, SELFPAY ==
[2020-03-04 13:23] VITALS: BMI 36.5
--- NOTE | 2020-06-19 12:59 | EKG12_ITS ---
Test Reason : TACHY,HTN Blood Pressure : / mmHG Vent. Rate : 065 BPM Atrial Rate : 065 BPM P-R Int : 156 ms QRS Dur : 072 ms QT Int : 416 ms P-R-T Axes : 020 033 011 degrees QTc Int : 432 ms Normal sinus rhythm Normal ECG Confirmed by NEVA CALLOWAY, JULIUS ([id number]), health editor AMALIA MEJIA ([id number]) on 06/20/2020 8:44:55 AM Referred By: Sulma Reagan Confirmed By:JULIUS HOOKS MD
--- NOTE | 2020-06-19 14:05 | BD_ITS ---
STUDY: DUAL ENERGY X-RAY ABSORPTIOMETRY / DXA REASON FOR EXAM: Female, 70 years old. Total hysterectomy age 59. Pat is 208# and 61 and quot; a loss of 2.5 and quot; per pat. Past hx of using an HRT for a very short time. Smoked as a teenager. Has taken HCTZ in the past. Type II diabetic and takes metformin, glyceride and Januvia. Hx of a nose fx. Hx of a lumbar decompression x 2 times. Does not exercise. TECHNIQUE: Bone Mineral Density (BMD) measurements of lumbar spine and bilateral hips were obtained. COMPARISON: None. FINDINGS: Lumbar Spine (L1-L4): g/cm2 (1.151) / T-score (-0.4) / Z-score (1.2) Findings are suggestive of normal bone density with a low fracture risk. Left Femur Total: g/cm2 (0.725) / T-score (-2.2) / Z-score (-0.9) Left Femoral Neck: g/cm2 (0.623) / T-score (-3.0) / Z-score (-1.4) Right Femur Total: g/cm2 (0.745) / T-score (-2.1) / Z-score (-0.7) Right Femoral Neck: g/cm2 (0.6-0) / T-score (-3.0) / Z-score (-1.4) BD/Dexa Bone Density Study IMPRESSION: The patient is considered osteoporotic as outlined below according to World Ovidio Organization (WHO) criteria with a high fracture risk. Reference Information: The T-score is the number of standard deviations above or below the standard which is normal for young adults at their peak bone mineral density. The World Health Organization (WHO) interprets the T-scores as follows: Above -1 Normal bone density Between -1 and -2.5 Osteopenia Equal to / or below -2.5 Osteoporosis As a practical clinical guideline, osteopenia may be graded as follows: Mild -1 through -1.5 Moderate -1.6 through -2.0 Severe -2.1 through -2.4 The Z-score is the number of standard deviations above or below age-matched controls. A Z-score of less than -1.5 would be considered abnormal. References: 1. NIH Osteoporosis and Related Bone Diseases www osteo.org 2. International Society for Clinical Densitometry www iscd.org 3. National Osteoporosis Foundation www nof.org Electronically Signed: Jordan Jones MD at 15:06 EST , Service support ,
--- NOTE | 2020-06-19 14:45 | BI_ITS ---
MAMMOGRAPHY - BILATERAL SCREENING REASON FOR EXAM: Female, 70 years old. Routine annual screening examination. PERTINENT HISTORY: Non-contributory. Remote right excisional breast biopsy and right stereotactic breast biopsies. TECHNIQUE: Digital bilateral breast master (3D mammographic acquisition) in the CC and MLO projections. 2-D mediolateral oblique (MLO) and craniocaudad (CC) views of both breasts were obtained. CAD: Full Field Digital Mammography with Computer Added Detection was performed. COMPARISON: Comparison is made with prior examination dated 06/29/2018. FINDINGS: Breast Composition: The breasts are extremely dense, which lowers the sensitivity of mammography. There are no dominant masses or suspicious calcifications. A tissue clip marker is seen in the anterior lateral aspect of the right breast. The previously seen microcalcifications at that site are not present at this time. No other significant abnormalities are identified. There has been no significant change since the prior study. BI/SCRN MAMM (CAD)W/MASTER BILAT IMPRESSION: Stable bilateral screening mammogram. Yearly follow-up mammogram recommended. (A) ASSESSMENT CATEGORY: BIRADS Category 2: Benign. A letter regarding these results will be sent to the patient by the facility within 30 days. Approximately 10% of breast cancers are not detected by mammography. A normal mammogram should not delay biopsy of a clinically suspicious abnormality. [id number] Electronically Signed: Jordan Jones MD at 15:27 EST , Service support ,
== END ==
PROVIDERS: PCP Internal Medicine; Referring Provider Internal Medicine; Visit Provider Internal Medicine
DX: Z12.31 Encounter for screening mammogram for malignant neoplasm of breast (principal); Z78.0 Asymptomatic menopausal state; R00.0 Tachycardia, unspecified
CPT/HCPCS: 77063; 77067; 77080; 93005

== ENCOUNTER → 2020-09-10 15:41 | Outpatient (CLI) | payer MEDICARE, OTHER, SELFPAY ==
[2020-09-10 15:19] VITALS: BMI 36.5
[2020-09-10 16:53] LABS: Absolute Lymphocyte Count 1.96 X10^3/uL (0.83-4.51); Absolute Neutrophil Count 6.4 X10^3/uL (2.0-7.7); Basophil# 0.05 X10^3/uL; Basophil% 0.5 % (0-1); Eosinophil# 0.29 X10^3/uL; Eosinophils% 3.1 % (0-5); Hematocrit 40.2 % (37-47); Hemoglobin 12.3 g/dL (12.0-15.0); Lymphocyte # 1.96 X10^3/ul (0.83-4.51); Lymphocyte % 21.3 % (19-41); Mean Corp Hgb Conc 30.6 g/dL (32-36); Mean Corpuscular Hgb 26.2 pg (27.0-32.0); Mean Corpuscular Volume 85.7 fL (81-99); Mean Platelet Vol. 10.5 fl (6.2-12.0); Monocyte# 0.53 X10^3/uL; Monocyte% 5.7 % (0-10); NRBC Flagged by Analyzer 0 % (0-5); Neutrophil # 6.36 X10^3/uL (2.7-7.7); Neutrophil % 69.1 % (47-70); Platelet Count 305 K/mm3 (150-450); RBC Distribution Width CV 14.6 % (11.6-14.6); RBC Distribution Width SD 45.1 fl (35.1-43.9); Red Blood Count 4.69 M/mm3 (4.2-5.4); White Blood Count 9.2 K/mm3 (4.4-11.0)
[2020-09-10 17:00] LABS: Anion Gap 7 (5-15); BUN 38 mg/dL (7-18); BUN/Creat Ratio 27.3 RATIO (10-20); Calcium,Total 10.1 mg/dL (8.5-10.1); Chloride 104 mmol/L (98-107); Creatinine, Serum 1.39 mg/dL (0.55-1.02); EST Glomerular Filtration Rate 40 mL/min (>60); Est Glom Filt Rate - Afr Amer 48 mL/min (>60); Glucose 165 mg/dL (74-106); Potassium 4.2 mmol/L (3.5-5.1); Sodium Level 137 mmol/L (136-145)
== END ==
PROVIDERS: PCP Internal Medicine; Referring Provider Internal Medicine; Visit Provider Internal Medicine
DX: E11.9 Type 2 diabetes mellitus without complications (principal)
CPT/HCPCS: 36415; 80048; 85025

== ENCOUNTER → 2020-12-10 15:29 | Outpatient (CLI) | payer MEDICARE, SELFPAY ==
[2020-12-10 15:09] VITALS: BMI 38.7
[2020-12-10 16:56] LABS: Absolute Lymphocyte Count 1.96 X10^3/uL (0.83-4.51); Absolute Neutrophil Count 7.9 X10^3/uL (2.0-7.7); Basophil# 0.05 X10^3/uL; Basophil% 0.5 % (0-1); Eosinophil# 0.28 X10^3/uL; Eosinophils% 2.6 % (0-5); Hematocrit 37.9 % (37-47); Hemoglobin 11.8 g/dL (12.0-15.0); Lymphocyte # 1.96 X10^3/ul (0.83-4.51); Lymphocyte % 18.1 % (19-41); Mean Corp Hgb Conc 31.1 g/dL (32-36); Mean Corpuscular Volume 86.7 fL (81-99); Mean Platelet Vol. 11.2 fl (6.2-12.0); Monocyte# 0.59 X10^3/uL; Monocyte% 5.4 % (0-10); NRBC Flagged by Analyzer 0 % (0-5); Neutrophil # 7.91 X10^3/uL (2.7-7.7); Platelet Count 364 K/mm3 (150-450); RBC Distribution Width CV 13.7 % (11.6-14.6); RBC Distribution Width SD 43.5 fl (35.1-43.9); Red Blood Count 4.37 M/mm3 (4.2-5.4); White Blood Count 10.8 K/mm3 (4.4-11.0)
[2020-12-10 17:07] LABS: ALB/GLOB Ratio 0.8 RATIO (0.9-2.4); AST(SGOT) 18 U/L (15-37); Alanine Aminotransfer ALT/SGPT 31 U/L (13-56); Albumin, Serum 3.8 g/dL (3.2-5.0); Alkaline Phosphatase 61 U/L (45-117); Anion Gap 7 (5-15); BUN 41 mg/dL (7-18); BUN/Creat Ratio 24.7 RATIO (10-20); Calcium,Total 9.7 mg/dL (8.5-10.1); Chloride 100 mmol/L (98-107); Cholesterol 192 mg/dL (200); Creatinine, Serum 1.66 mg/dL (0.55-1.02); EST Glomerular Filtration Rate 33 mL/min (>60); Est Glom Filt Rate - Afr Amer 39 mL/min (>60); Globulin 4.5 g/dL (2.2-4.2); Glucose 107 mg/dL (74-106); High Density Lipoprotein 70 mg/dL; Potassium 4.2 mmol/L (3.5-5.1); Protein, Total 8.3 g/dL (6.4-8.2); Sodium Level 136 mmol/L (136-145); Triglycerides 116 mg/dL; Very Low Density Lipoprotein 23 mg/dL (5-40)
[2020-12-10 17:35] LABS: Microalbumin,Random Urine 7.1 mg/L (NO RANGE EST.); Microalbumin:Creatinine Ratio 28.4 mg/g CRE (<30 mg/g CRE)
== END ==
PROVIDERS: PCP Internal Medicine; Referring Provider Internal Medicine; Visit Provider Internal Medicine
DX: E78.5 Hyperlipidemia, unspecified (principal); E11.9 Type 2 diabetes mellitus without complications
CPT/HCPCS: 36415; 80053; 80061; 82043; 82570; 85025

== ENCOUNTER 2021-01-26 13:37 | Observation (INO) | payer MEDICARE, SELFPAY ==
[2021-01-26 13:38] VITALS: BP 127/57; PULSE 66; RESP 18; TEMP 36; O2SAT 97; BMI 37.2
--- NOTE | 2021-01-26 14:07 | EKG12_ITS ---
Test Reason : FALL Blood Pressure : / mmHG Vent. Rate : 078 BPM Atrial Rate : 078 BPM P-R Int : 156 ms QRS Dur : 076 ms QT Int : 404 ms P-R-T Axes : 006 030 019 degrees QTc Int : 460 ms Normal sinus rhythm Normal ECG Confirmed by SHERIF CALLOWAY, MILDRED ([id number]), society editor AMALIA MEJIA ([id number]) on 01/28/2021 10:34:26 AM Referred By: FRANKO/PHUONG Confirmed By:MILDRED GORMAN MD
[2021-01-26 14:32] LABS: Absolute Lymphocyte Count 1.29 X10^3/uL (0.83-4.51); Absolute Neutrophil Count 8.6 X10^3/uL (2.0-7.7); Basophil# 0.05 X10^3/uL; Basophil% 0.5 % (0-1); Eosinophil# 0.21 X10^3/uL; Eosinophils% 1.9 % (0-5); Hematocrit 34.7 % (37-47); Hemoglobin 10.8 g/dL (12.0-15.0); Lymphocyte # 1.29 X10^3/ul (0.83-4.51); Mean Corp Hgb Conc 31.1 g/dL (32-36); Mean Corpuscular Hgb 27.6 pg (27.0-32.0); Mean Corpuscular Volume 88.5 fL (81-99); Mean Platelet Vol. 9.8 fl (6.2-12.0); Monocyte# 0.59 X10^3/uL; Monocyte% 5.5 % (0-10); NRBC Flagged by Analyzer 0 % (0-5); Neutrophil # 8.59 X10^3/uL (2.7-7.7); Neutrophil % 79.5 % (47-70); Platelet Count 330 K/mm3 (150-450); RBC Distribution Width CV 14.6 % (11.6-14.6); RBC Distribution Width SD 47.5 fl (35.1-43.9); Red Blood Count 3.92 M/mm3 (4.2-5.4); White Blood Count 10.8 K/mm3 (4.4-11.0)
--- NOTE | 2021-01-26 14:38 | RAD_ITS ---
STUDY: X-RAY CHEST REASON FOR EXAM: Female, 71 years old. FALLS TECHNIQUE: Single AP portable view of the chest. COMPARISON: Comparison is made with prior study of 10/13/2018. FINDINGS: Stable mild elevation of the right hemidiaphragm. The lungs are clear. There is no demonstrated pleural abnormality. Normal size heart. Normal mediastinum and nevin. Normal visualized pulmonary arteries. Normal visualized aortic arch and descending thoracic aorta. There are diffuse degenerative changes of the visualized thoracic spine. There is degenerative osteoarthritis of the bilateral shoulders. There is no demonstrated abnormality of the visualized soft tissue structures of the upper abdomen. RAD/Chest 1 View IMPRESSION: No acute abnormality is seen. Electronically Signed: Jordan Jones MD at 15:00 EDT , Service support ,
[2021-01-26 14:50] LABS: ALB/GLOB Ratio 0.7 RATIO (0.9-2.4); AST(SGOT) 17 U/L (15-37); Alanine Aminotransfer ALT/SGPT 25 U/L (13-56); Albumin, Serum 3.2 g/dL (3.2-5.0); Alkaline Phosphatase 57 U/L (45-117); Anion Gap 7 (5-15); BUN 35 mg/dL (7-18); BUN/Creat Ratio 26.5 RATIO (10-20); Calcium,Total 9.5 mg/dL (8.5-10.1); Chloride 103 mmol/L (98-107); Creatinine, Serum 1.32 mg/dL (0.55-1.02); EST Glomerular Filtration Rate 42 mL/min (>60); Est Glom Filt Rate - Afr Amer 51 mL/min (>60); Estimated Creatinine Clearance 30.35 ml/min; Globulin 4.9 g/dL (2.2-4.2); Glucose 137 mg/dL (74-106); Potassium 3.8 mmol/L (3.5-5.1); Protein, Total 8.1 g/dL (6.4-8.2); Sodium Level 139 mmol/L (136-145)
[2021-01-26 16:44] VITALS: BP 136/70; PULSE 76; RESP 18; O2SAT 97
--- NOTE | 2021-01-26 17:04 | EX.ED.DYSGE1 ---
HPI History of Present Illness Chief Complaint: Fall Informant: patient Narrative Narrative: Patient sent into the ED after discussing with PCP for placement to rehab. Patient lives alone. Had a mechanical fall 5 days ago right elbow fracture seen initially at [facility]. She follow-up with [facility] on Tuesday, casting to the right upper extremity. She states she has severe osteoarthritis to the right knee with x-rays at the facility. On Tuesday getting up her right knee buckled causing her to fall on a flexed knee. No head injuries. Typically ambulates with a cane or a walker however having difficulty using either. She states she has a bad left upper extremity already. Her sister has been helping her throughout the day yesterday. States increased difficulties therefore referred in here for assistance. She has been able to ambulate with assistance from her sister. Prior similar symptoms: [facility] Medical History Abnormal mammogram of right breast Abnormal mammogram of right breast Afib Anemia Anxiety and depression Arthritis Breast lump COVID-19 vaccine series completed CVA (cerebral vascular accident) Depression with anxiety Diabetes Essential hypertension History of UTI Hyperlipidemia Kidney disease Non-rheumatic mitral valve stenosis Nonrheumatic aortic (valve) stenosis Paroxysmal atrial fibrillation Sleep apnea Venous insufficiency Vision problems Home Medications melatonin 10 mg capsule 10 mg PO HS PRN 07/07/20 [History Last Taken Unknown] apixaban 5 mg tablet 5 mg PO BID #180 tab 10/20/20 [Rx Last Taken 01/26/21] amlodipine 10 mg tablet 10 mg PO DAILY #90 tab 12/01/20 [Rx Last Taken 01/26/21] furosemide 40 mg tablet 40 mg PO DAILY #90 tab 12/01/20 [Rx Last Taken 01/26/21] losartan 50 mg tablet 50 mg PO BID #180 tab 12/01/20 [Rx Last Taken 01/26/21] metformin 1,000 mg tablet 1,000 mg PO BID #180 tab 12/01/20 [Rx Last Taken 01/26/21] simvastatin 20 mg tablet 20 mg PO QHS #90 tab 12/01/20 [Rx Last Taken 01/25/21] glimepiride 2 mg tablet 2 mg PO BID #180 tab 12/12/20 [Rx Last Taken 01/26/21] metoprolol tartrate 50 mg tablet 50 mg PO BID #60 tab 12/12/20 [Rx Last Taken 01/26/21] sitagliptin 100 mg tablet 100 mg PO DAILY #90 tab 01/15/21 [Rx Last Taken 01/26/21] oxybutynin chloride 15 mg tablet,extended release 24 hr 15 mg PO DAILY #90 tab 01/22/21 [Rx Last Taken 01/25/21] ferrous sulfate 325 mg (65 mg iron) tablet 325 mg PO DAILY #90 tab 01/26/21 [Rx Last Taken 01/25/21] sertraline [Zoloft] 200 mg PO DAILY 01/26/21 [History Last Taken 01/25/21] Allergy/AdvReac Type Severity Reaction Status Date / Time fosinopril [From Monopril] Allergy Unknown unknown Verified 01/26/21 13:41 pioglitazone AdvReac Other Verified 01/26/21 13:41 Family History Father Diabetes Hypertension High cholesterol Heart disease Melanoma Surgical History History of back surgery History of carpal tunnel release History of hand surgery History of hysterectomy Social History Smoking Status: Former smoker how long ago did patient quit smokin years ago alcohol intake: current alcohol intake frequency: holidays/special occasions only substance use type: does not use what type of physical activity do you participate in: other details: aquasize ROS ROS ED Constitutional Constitutional ED: Denies chills, fever(s) or sweats Eyes Eyes: Denies change in vision ENT ENT ED: Denies dysphagia or sore throat Cardiovascular Cardiovascular: Denies chest pain, leg edema, palpitations or racing heartbeat Respiratory/Chest Respiratory/Chest: Denies cough, dyspnea or dyspnea on exertion Gastrointestinal Gastrointestinal: Denies abdominal pain, diarrhea, nausea or vomiting Genitourinary Genitourinary ED: Denies dysuria, hematuria or urinary frequency Musculoskeletal Musculoskeletal: Reports arthralgias; Denies back pain, extremity pain or neck pain Integumentary Denies rash or wounds Neurologic Neurologic: Denies headache(s), paresthesias or weakness EXAM Physical Exam Const Vital Signs: 01/26/21 13:38 01/26/21 16:44 01/26/21 18:42 Temperature 96.8 F L Temperature Source Temporal Pulse Rate 66 76 Respiratory Rate 18 18 Blood Pressure 127/57 H 136/70 H 131/70 H Blood Pressure Mean 80 92 90 Pulse Ox 97 97 96 Oxygen Delivery Method Room Air Room Air Room Air 01/26/21 19:38 01/26/21 21:48 Temperature 98.4 F Temperature Source Temporal Pulse Rate 72 77 Respiratory Rate 16 14 Blood Pressure 146/78 H 147/77 H Blood Pressure Mean 100 100 Pulse Ox 95 92 Oxygen Delivery Method Room Air Room Air Positive well nourished and well developed General Appearance ED: well developed and NAD HEENT Reports moist mucous membranes normocephalic and atraumatic Eyes PERRL, EOMs intact bilaterally and conjunctivae normal General Eye ED: Yes normal appearance of both eyes Neck no lymphadenopathy and supple General: Negative for tenderness Chest Wall Chest: Negative for tenderness Resp normal respiratory effort and normal air movement Effort and Inspection: symmetric chest movement; Negative for respiratory distress Cardio regular rate, regular rhythm and no murmurs Peripheral Pulses: pulses 2+ throughout GI normal to inspection, nondistended, normoactive bowel sounds and non-tender Palpation: Negative for guarding or rebound tenderness present Back/Spine no CVA tenderness and no thoracic nor lumbar tenderness Extremity Extremity Narrative: Right upper extremity: Long-arm cast. Neurovascular intact distally. Right lower extremity: Negative logroll. There is mild swelling tenderness at the medial proximal tibia. No deformities. Extensor mechanism intact. Skin intact. Neurovascular intact. Left upper extremity: Full range of motion with no tenderness. Left lower extremity: Negative logroll. Nontender. Neuro vas intact distally. General Extremety ED: Negative for edema or tenderness General Extremity: Negative for edema Neuro oriented x3 and no sensory deficits noted Sensorium / Orientation: awake and alert Skin no rashes or lesions noted and no wounds MDM MDM MDM Narrative Medical decision making narrative: Protocol orders initiated from triage prior to my evaluation. Labs are stable, creatinine 1.3 chronic from previous. EKG is sinus rhythm. Chest x-ray negative. Urine pending. Added right knee x-rays for further evaluation. Discussed with case management through the ED to assist with disposition. Patient evaluated by case management. Reports patient's management needs to go through hospitalization and cannot be done through the emergency department. This was initiated. She would need PT OT evaluation in the hospital. X-ray right knee obtained by and reviewed by myself shows no fractures. I spoke with hospitalist, Dr. Delvalle for admission to the medical floor. Lab Data Attestation: I reviewed the patient's lab results. Labs: Laboratory Results - last 24 hr 01/26/21 01/26/21 01/26/21 14:00 14:00 19:20 WBC 10.8 RBC 3.92 L Hgb 10.8 L Hct 34.7 L MCV 88.5 MCH 27.6 MCHC 31.1 L RDW Std Deviation 47.5 H RDW Coeff of Zee 14.6 Plt Count 330 MPV 9.8 Immature Gran % (Auto) 0.600 Neut % (Auto) 79.5 H Lymph % (Auto) 12.0 L [place] % (Auto) 5.5 Eos % (Auto) 1.9 Baso % (Auto) 0.5 Absolute Neuts (auto) 8.6 H Absolute Lymphs (auto) 1.29 Nucleated RBC % 0 Sodium 139 Potassium 3.8 Chloride 103 Carbon Dioxide 29.0 Anion Gap 7 BUN 35 H Creatinine 1.32 H Estim Creat Clear Calc 30.35 Est GFR (MDRD) Af Amer 51 L Est GFR (MDRD) Non-Af 42 L BUN/Creatinine Ratio 26.5 H Glucose 137 H Calcium 9.5 Total Bilirubin 0.50 AST 17 ALT 25 Alkaline Phosphatase 57 Total Protein 8.1 Albumin 3.2 Globulin 4.9 H Albumin/Globulin Ratio 0.7 L Urine Color Yellow Urine Clarity Clear Urine pH 5.0 Ur Specific Orange 1.015 Urine Protein Negative Urine Glucose (UA) Normal Urine Ketones Negative Urine Occult Blood Negative Urine Nitrite Negative Urine Bilirubin Negative Urine Urobilinogen Normal Ur Leukocyte Esterase Negative Urine RBC 0 SEEN Urine WBC 0 SEEN Ur Squamous Epith Cells 0 SEEN Urine Bacteria 1+ Urine Mucus 0 SEEN Radiography Chest X-Ray - ED: 1 View, Read by ED Physician and Read by Radiologist Diagnostic Testing: Radiology Impression Chest X-Ray 01/26/21 14:38 IMPRESSION: No acute abnormality is seen. Electronically Signed: Jordan Jones MD at 15:00 EDT , Service support , Knee X-Ray 01/26/21 18:54 IMPRESSION: 1. Acute nondisplaced vertical fracture of the lateral patellar facet Electronically Signed: Rupesh Cronin MD at 20:16 EDT , Service support , Right knee x-ray 4 views: Significant degenerative changes no fracture or dislocation. EKG Initial EKG: Attestation: I personally reviewed and interpreted this EKG as follows: Comments: Sinus rate of [address] changes. Isolated T wave inversion in leads III. Discharge Plan Dx/Rx/DC Orders Clinical Impression: Failure to thrive, Closed fracture of right elbow, Contusion of knee, right Disposition Disposition: Acute Care Hospital [facility]
--- NOTE | 2021-01-26 17:38 | CM.ED ---
Addendum entered by Martita Naranjo 01/26/21 18:35: Patient asked about the TCU and was advised no beds till weekend. Patient said that she did not think she could do rehab in inpatient unit. Sister requested food and pillows. Food and blankets provided. Martita GR BASHIR Addendum entered by Martita Naranjo 01/26/21 18:34: Patient reports diagnosis of anxiety and depression. Patient reports prescription of zoloft from her PCP. No psych hospitalizations or outpatient MH services. PASSR started. Martita CAMEJO Original Note: HUAN Note: Referral Source: MD Referrral Reason: Long-Term Placement HUAN was advised by MD that patient needs SNF placement. HUAN called Becca who assisted this jingle writer with approved list of SNF. HUAN met with patient and her sister, Nakul Crews. HUAN reviewed list. Patient selected 1) [facility] and 2) [facility] . Patient's sister said that patient will never survive at home. Patient's sister asked about patient going to the SNF. HUAN explained there are 2 parts to placement and these include 1) beds and 2) insurance coverage. HUAN said that this jingle writer can not speak to if insurance will provide coverage fo patient.HUAN called [facility] and left a voice mail for admissions. HUAN paged [facility]. HUAN called [facility] and spoke to RN to get fax number. HUAN faxed referral to [facility]. HUAN spoke to MD Cho about ordering PT/OT. Marquis said that he is unable to order it. HUAN spoke to Zabrina White and she will follow up with patient to ensure that patient got PT/OT ordered. Plan: Referral to [facility] Martita CAMEJO
[2021-01-26 18:42] VITALS: BP 131/70; O2SAT 96
--- NOTE | 2021-01-26 18:54 | RAD_ITS ---
STUDY: X-RAY - RIGHT KNEE REASON FOR EXAM: Female, 71 years old. injury TECHNIQUE: 4 view(s) of the knee. COMPARISON: None. FINDINGS: An acute vertical fracture is present on the articular side of the lateral patellar facet without displacement. Mild soft tissue swelling is present. Normal visualized distal femur. Normal visualized proximal tibia and fibula. Normal proximal tibiofibular articulation. There is severe degenerative arthrosis of the medial femorotibial compartment with severe joint space narrowing. Normal lateral femorotibial compartment. There is severe degenerative arthrosis of the patellofemoral articulation. There is a soft tissue prominence in the suprapatellar region suggesting a small volume joint effusion. There are atherosclerotic calcifications. RAD/Knee 4 or More Views IMPRESSION: 1. Acute nondisplaced vertical fracture of the lateral patellar facet Electronically Signed: Rupesh Cronin MD at 20:16 EDT , Service support ,
--- NOTE | 2021-01-26 19:30 | PCM.HP.STD ---
[facility] - General General Date of Service: 01/26/21 Chief Complaint: Falls HPI Narrative JOSELINE RIDDLE, is a 71 F with a significant history of hypertension who presents to the emergency department with multiple falls. On 01/21/2021 patient fell. She went to an emergent department. Sling was placed. On 01/24/2021 she went to [facility] and a cast was placed. On 01/25/2021 patient's leg and she fell agaib. At baseline she uses a cane and a walker. Her sister who is out of state came to help her over the weekend but her sister will return to where she came from. Patient is unable to take care of herself at home. PCP instructed patient to come to the emergency department for rehab placement. [facility] Medical History Abnormal mammogram of right breast Abnormal mammogram of right breast Afib Anemia Anxiety and depression Arthritis Breast lump COVID-19 vaccine series completed CVA (cerebral vascular accident) Depression with anxiety Diabetes Essential hypertension History of UTI Hyperlipidemia Kidney disease Non-rheumatic mitral valve stenosis Nonrheumatic aortic (valve) stenosis Paroxysmal atrial fibrillation Sleep apnea Venous insufficiency Vision problems Home Medications melatonin 10 mg capsule 10 mg PO HS PRN 07/07/20 [History Last Taken Unknown] apixaban 5 mg tablet 5 mg PO BID #180 tab 10/20/20 [Rx Last Taken 01/26/21] amlodipine 10 mg tablet 10 mg PO DAILY #90 tab 12/01/20 [Rx Last Taken 01/26/21] furosemide 40 mg tablet 40 mg PO DAILY #90 tab 12/01/20 [Rx Last Taken 01/26/21] losartan 50 mg tablet 50 mg PO BID #180 tab 12/01/20 [Rx Last Taken 01/26/21] metformin 1,000 mg tablet 1,000 mg PO BID #180 tab 12/01/20 [Rx Last Taken 01/26/21] simvastatin 20 mg tablet 20 mg PO QHS #90 tab 12/01/20 [Rx Last Taken 01/25/21] glimepiride 2 mg tablet 2 mg PO BID #180 tab 12/12/20 [Rx Last Taken 01/26/21] metoprolol tartrate 50 mg tablet 50 mg PO BID #60 tab 12/12/20 [Rx Last Taken 01/26/21] sitagliptin 100 mg tablet 100 mg PO DAILY #90 tab 01/15/21 [Rx Last Taken 01/26/21] oxybutynin chloride 15 mg tablet,extended release 24 hr 15 mg PO DAILY #90 tab 01/22/21 [Rx Last Taken 01/25/21] ferrous sulfate 325 mg (65 mg iron) tablet 325 mg PO DAILY #90 tab 01/26/21 [Rx Last Taken 01/25/21] sertraline [Zoloft] 200 mg PO DAILY 01/26/21 [History Last Taken 01/25/21] Allergy/AdvReac Type Severity Reaction Status Date / Time fosinopril [From Monopril] Allergy Unknown unknown Verified 01/26/21 13:41 pioglitazone AdvReac Other Verified 01/26/21 13:41 Family History Father Diabetes Hypertension High cholesterol Heart disease Melanoma Surgical History History of back surgery History of carpal tunnel release History of hand surgery History of hysterectomy Social History Smoking Status: Former smoker how long ago did patient quit smokin years ago alcohol intake: current alcohol intake frequency: holidays/special occasions only substance use type: does not use what type of physical activity do you participate in: other details: aquasize ROS ROS Narrative Constitutional: Denies anorexia and change in weight Eyes: Denies blurry vision, change in eye color, change in vision, discharge from eye(s), double vision, erythema, eye pain, loss of vision or other HEENT: Denies abnormal hearing, dysphagia, ear pain, epistaxis, headache(s), hearing loss, nasal congestion, nasal discharge, post nasal drip, sinus pressure, sore throat or other Cardiovascular: Denies chest pain or palpitations. Denies dyspnea on exertion, orthopnea and paroxysmal nocturnal dyspnea Respiratory/Chest: Denies cough, excessive phlegm production, shortness of breath with exertion and wheezing Gastrointestinal: Denies abdominal pain, coffee ground emesis, constipation, diarrhea, dyspepsia, hematemesis, hematochezia, loose stools, melena, nausea, vomiting or other Genitourinary: Denies burning urination, difficulty urinating, dysuria, hematuria, nocturia, urinary frequency, urinary hesitancy, urinary incontinence, urinary urgency or other Musculoskeletal: Reports arthralgias. Denies back pain, myalgias, neck pain or other Neurologic: Denies, abnormal speech, confusion, disequilibrium, dizziness, focal weakness, headache(s), numbness, paresthesias, seizure-like activity, seizures, syncope, tingling, tremor(s) or other Psychiatric: Reports depression. Denies homicidal ideation, suicidal ideation or other Endocrinology: Denies change in body appearance, cold intolerance, excessive sweating, heat intolerance, polydipsia, polyuria or other Hematologic/Lymphatic: Denies anemia, easy bleeding, easy bruising, lymphadenopathy or other Integumentary: Denies rashes Allergic/Immunologic: Denies rhinitis, hives, eczema, asthma or other Vital Signs Vital Signs Vital Signs: 01/26/21 13:38 01/26/21 16:44 01/26/21 18:42 Temperature 96.8 F L Temperature Source Temporal Pulse Rate 66 76 Respiratory Rate 18 18 Blood Pressure 127/57 H 136/70 H 131/70 H Blood Pressure Mean 80 92 90 Pulse Ox 97 97 96 Oxygen Delivery Method Room Air Room Air Room Air Weight Weight: 89.358 kg Body Mass Index (BMI) 37.2 Physical Exam Narrative Physical exam: General: Obese elderly female with a cast in the right. Head: Normocephalic, atraumatic, no tenderness Eyes: PERRLA, EOMI ENT, no trauma, moist mucous membranes, no rhinorrhea Neck: Nontender, full range of motion, no spinal tenderness, deformities, step-off CVS: Regular rate and rhythm. S1-S2 present. No murmur, gallop or rub. Respiratory : clear to auscultation bilaterally, chest wall nontender, no wheezing Abdomen: Soft, nontender, nondistended, normal bowel sounds, no masses : Deferred Back: Nontender, no CVA tenderness, no midline spinal tenderness, deformities, step-offs Extremities: Right arm in cast Skin: Normal color, no trauma, abrasions Neuro: Alert, oriented, cranial nerves II through XII grossly intact. Psychiatry: Normal mood. Normal affect. Results Lab / Micro Data Result Diagrams: 01/26/21 14:00 01/26/21 14:00 Labs: Laboratory Results - last 24 hr 01/26/21 14:00: WBC 10.8, RBC 3.92 L, Hgb 10.8 L, Hct 34.7 L, MCV 88.5, MCH 27.6, MCHC 31.1 L, RDW Std Deviation 47.5 H, RDW Coeff of Zee 14.6, Plt Count 330, MPV 9.8, Immature Gran % (Auto) 0.600, Neut % (Auto) 79.5 H, Lymph % (Auto) 12.0 L, [place] % (Auto) 5.5, Eos % (Auto) 1.9, Baso % (Auto) 0.5, Absolute Neuts (auto) 8.6 H, Absolute Lymphs (auto) 1.29, Nucleated RBC % 0 01/26/21 14:00: Sodium 139, Potassium 3.8, Chloride 103, Carbon Dioxide 29.0, Anion Gap 7, BUN 35 H, Creatinine 1.32 H, Estim Creat Clear Calc 30.35, Est GFR (MDRD) Af Amer 51 L, Est GFR (MDRD) Non-Af 42 L, BUN/Creatinine Ratio 26.5 H, Glucose 137 H, Calcium 9.5, Total Bilirubin 0.50, AST 17, ALT 25, Alkaline Phosphatase 57, Total Protein 8.1, Albumin 3.2, Globulin 4.9 H, Albumin/Globulin Ratio 0.7 L Micro: Microbiology 01/26/21 17:21 Nasal Secretion SARS-CoV-2 Antigen (Rapid) - Final Radiology Impression Chest X-Ray 01/26/21 14:38 IMPRESSION: No acute abnormality is seen. 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 Case management consult for disposition. We will check vitamin D and vitamin B-12 level. Tylenol for pain Diabetes mellitus Patient with hyperglycemia on presentation Januvia, Metformin and glimepiride continued continued. Accu-Chek QA [facility] with correction scale insulin ordered. Atrial fibrillation Stable Metoprolol and apixaban continued. Depression Zoloft continued Hypertension Blood pressure is stable in regards to her age Amlodipine and metoprolol continued. Trend blood pressure and adjust blood pressure medications. DVT prophylaxis: Home apixaban for A. fib continued Charges/Coding Visit Charges OBSV E&M: 32026 Initial observation care L3
[2021-01-26 19:34] LABS: Mucous, Urine 0 SEEN /hpf (<or=2+); Red Blood Cells-Urine 0 SEEN /hpf (0-5); Squamous Epithelial Cells - UA 0 SEEN /hpf (5-10); White Blood Cells 0 SEEN /hpf (0-5)
[2021-01-26 19:38] VITALS: BP 146/78; PULSE 72; RESP 16; TEMP 36.9; O2SAT 95
[2021-01-26 20:08] LABS: Color, Urine Yellow (Yellow); Glucose, Dipstick Normal (Normal); Ketone-Dipstick Negative (Negative); Leukocyte Esterase-Dipstick Negative /ul (Negative); Nitrite-Dipstick Negative (Negative); Occult Blood-Urine Negative /ul (Negative); Protein-Dipstick Negative (Negative); Specific Gravity, Urine 1.015 (1.002-1.030); Urine Bilirubin Dipstick Negative (Negative); Urine Clarity Clear (Clear); Urine Urobilinogen Normal (Normal)
--- NOTE | 2021-01-26 20:16 | CM.ED ---
Addendum entered by Martita Naranjo 01/26/21 21:39: HUAN called [facility] and left voice mail for admission stating that patient is going to [facility] and assigned long term care social worker. Plan: [facility] Martita HuaPandya Original Note: HUAN Note HUAN met with patient and her sister, Nakul. Patient said that she has completed POA paperwork and it is on file at [place] and [place]. SW reviewed the legal documents file of [facility] and did not find any POA on file. Patient said that her brother in law, Jose Alberto Crews is her POA as he is a MD. Plan: SW has been unable to locate POA. Patient said that she complete the Advanced Directives. SW provided patient with Advanced DIrectives and Advance Directives.. You Have a Choice. As of this time 01/26/21 at 8:24 PM no call back or text from [facility]. Martita Knight
[2021-01-26 20:37] LABS: Bacteria 1+ /hpf (None Seen)
[2021-01-26 21:48] VITALS: BP 147/77; PULSE 77; RESP 14; O2SAT 92
--- NOTE | 2021-01-27 01:12 | PCS.PANDOC ---
PANDEMIC DOCUMENTATION INITIATED: Date: 01/27/21 Time: 0100
[2021-01-27 01:16] VITALS: BMI 39.1
[2021-01-27 02:11] VITALS: BP 144/81; PULSE 77; RESP 18; TEMP 37.2; O2SAT 94
[2021-01-27] MEDS: APIXABAN 5 MG TABLET PO ×2 (02:11→08:42)
[2021-01-27] MEDS: Metoprolol Tartrate 50 MG Tablet PO ×2 (02:11→08:41)
[2021-01-27] MEDS: Losartan Potassium 50 MG Tablet PO ×2 (02:11→08:43)
[2021-01-27] MEDS: Acetaminophen 325 MG Tablet 650 MG PO (05:54)
[2021-01-27 06:20] LABS: Bedside Glucose 72 mg/dL (70-110)
[2021-01-27 07:06] LABS: Bedside Glucose 105 mg/dL (70-110)
[2021-01-27 07:52] VITALS: O2SAT 94
[2021-01-27 08:00] VITALS: BP 166/82; PULSE 63; RESP 16; TEMP 36.8
[2021-01-27 08:38] LABS: Vitamin B12 585 pg/mL (211-911); Vitamin D,25 Hydroxy 45.5 ng/mL
[2021-01-27] MEDS: LINAGLIPTIN 5 MG TABLET PO (08:40)
[2021-01-27] MEDS: metFORMIN HCl 1,000 MG Tablet 1000 MG PO (08:40)
[2021-01-27 08:41] VITALS: PULSE 63
[2021-01-27] MEDS: Glimepiride 2 MG Tablet PO (08:41)
[2021-01-27] MEDS: Ferrous Sulfate 325 MG Tablet PO (08:41)
[2021-01-27] MEDS: Tolterodine Tartrate 4 MG CAP.SA PO (08:43)
[2021-01-27] MEDS: Sertraline 100 MG Tablet 200 MG PO (08:44)
[2021-01-27] MEDS: amLODIPine 10 MG Tablet PO (08:44)
[2021-01-27] MEDS: Furosemide 40 MG Tablet PO (08:44)
--- NOTE | 2021-01-27 09:34 | CASEMGMT ---
Addendum entered by Becca Sung 01/27/21 10:46: HUAN placed a call to [facility] and spoke with Amilcar. HUAN updated Amilcar to disregard referral. Original Note: Social Work Note HUAN placed a call to Valeria with TCU to confirm if TCU has any beds or notes as per notes, pt asked about TCU. Valeria states TCU does have a bed available today, able to accept pt today. SW in to speak with pt. HUAN introduced self and role at [facility]. HUAN updated pt that TCU does have a bed available for pt. Pt states she prefers to go to [facility] TCU. HUAN informed pt that she will go to TCU when medically cleared. Pt states understanding. Pt states her sister brought in her HCPOA. HUAN copied HCPOA and placed on pt's chart, original provided back to pt. Plan: TCU when medically cleared Becca Sung COUNTY MANAGER, HYDROTECHNICAL SPECIALIST
--- NOTE | 2021-01-27 09:37 | CASEMGMT ---
Social Work Note SW reviewed chart. Both HCPOA and LW are on file. SW printed off copies and placed on pt's chart. Pt also provided this worker with HCPOA. HCPOA copied and placed on pt's chart and Original provided back to pt. Becca Sung IRONING PLEATER, PSYCH SPECIALIST
[2021-01-27] MEDS: Insulin Lispro 100 UNIT/ML INSULN.PEN SC (12:11)
[2021-01-27 12:16] LABS: Bedside Glucose 188 mg/dL (70-110)
--- NOTE | 2021-01-27 13:42 | PCM.TXEXTCAR ---
Diet 01/27/21 01:10 Diet: Cardiac - Heart Healthy Food consistency:: Regular Liquid Consistency:: Regular/Thin Routine Orders/Code Status O2 Liters per Minute: 2 O2 Frequency: PRN Keep PO Greater than or Equal to (%): 94 Routine Lab Work: CBC (within 3 days) and BMP (within 3 days) Code Status: DNRCC-A Wound(s) b/l lower legs: Wound Type: scabbed area from healing poison jenna Therapies Weight Bearing: Weight bearing as tolerated Extremity Affected:: Right Lower Physical Therapy: Eval and Treat Occupational Therapy: Eval and Treat Problem/Diagnosis (1) Debility: Status: Acute (2) Fall: Status: Acute (3) Diabetes: Status: Chronic Allergies/Procedures Done in Hospital Allergies fosinopril [From Monopril] Allergy (Unknown, Verified 01/26/21 13:41) unknown pioglitazone Adverse Reaction (Verified 01/26/21 13:41) Other Procedures: None Type of Care/Length of Stay Estimated LOS: Convalescent Care Less Than 30 days Type of Care Needed: Skilled Rehab Potential: Good Prognosis: Good Additional Orders/Day of Discharge Day of Discharge: 01/27/21 Follow Up Care Please follow up with your Primary Care Physician in: within 2 weeks after discharge Please Follow Up With: [facility] When: in 2 weeks Discharge Plan Admission Admit Date/Time: 01/26/21 22:17 Primary Reason for Your Visit: Acute debility, recurrent falls Attending Provider: Key Chiang Primary Care Provider: Sulma Reagan Discharge Orders/Prescriptions Prescriptions: New acetaminophen [Tylenol] 325 mg Tablet 650 mg PO Q6H PRN PRN (Reason: Pain Score 1-10/Temp > 100.7 F) 7 Days Qty: 20 RF: 0 Continued melatonin 10 mg capsule 10 mg PO HS PRN (Reason: Sleep) RF: 0 sertraline [Zoloft] 100 mg tablet 200 mg PO DAILY RF: 0 apixaban 5 mg tablet 5 mg PO BID Qty: 180 RF: 3 amlodipine 10 mg tablet 10 mg PO DAILY Qty: 90 RF: 3 furosemide 40 mg tablet 40 mg PO DAILY Qty: 90 RF: 3 losartan 50 mg tablet 50 mg PO BID Qty: 180 RF: 3 metformin 1,000 mg tablet 1,000 mg PO BID Qty: 180 RF: 3 simvastatin 20 mg tablet 20 mg PO QHS Qty: 90 RF: 3 metoprolol tartrate 50 mg tablet 50 mg PO BID Qty: 60 RF: 1 glimepiride 2 mg tablet 2 mg PO BID Qty: 180 RF: 3 Januvia 100 mg tablet 100 mg PO DAILY Qty: 90 RF: 3 oxybutynin chloride 15 mg tablet extended release 24hr 15 mg PO DAILY Qty: 90 RF: 1 ferrous sulfate 325 mg (65 mg iron) tablet 325 mg PO DAILY Qty: 90 RF: 1 Referrals / Follow Up: Sulma Reagan MD [Primary Care Provider] - Within 2 Weeks Micky Guy DO [STAFF PHYSICIAN] - Within 2 Weeks Disposition Disposition (needs filled in before D/C Order can be placed): Residential Facility
[2021-01-27 14:12] VITALS: BP 128/68; PULSE 79; RESP 20; TEMP 36.8; O2SAT 96
--- NOTE | 2021-01-27 14:27 | PCM.DC.SUM ---
Providers Date of Admission: 01/26/21 Date of Discharge: 01/27/21 Primary Care Physician: Dr. 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 truck driver insulin use: with local intermodal truck driver use Diabetes mellitus type: type 2 Qualified Code(s): E11.9 - Type 2 diabetes mellitus without complications; 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 (4) Patellar fracture: Status: Acute Code(s): S82.009A - Unspecified fracture of unspecified patella, initial encounter for closed fracture (5) Elbow fracture, right: Status: Acute Code(s): S42.401A - Unspecified fracture of lower end of right humerus, initial encounter for closed fracture Medications at Discharge Home Medications melatonin 10 mg capsule 10 mg PO HS PRN 07/07/20 apixaban 5 mg tablet 5 mg PO BID #180 tab 10/20/20 amlodipine 10 mg tablet 10 mg PO DAILY #90 tab 12/01/20 losartan 50 mg tablet 50 mg PO BID #180 tab 12/01/20 simvastatin 20 mg tablet 20 mg PO QHS #90 tab 12/01/20 glimepiride 2 mg tablet 2 mg PO BID #180 tab 12/12/20 metoprolol tartrate 50 mg tablet 50 mg PO BID #60 tab 12/12/20 oxybutynin chloride 15 mg tablet,extended release 24 hr 15 mg PO DAILY #90 tab 01/22/21 sertraline [Zoloft] 200 mg PO DAILY 01/26/21 Januvia 100 mg PO DAILY 01/27/21 acetaminophen [Tylenol] 650 mg PO Q6H PRN PRN 7 Days #20 tab 01/27/21 ferrous sulfate 325 mg PO DAILY 01/27/21 furosemide 40 mg PO DAILY 01/27/21 metformin 1,000 mg PO BID 01/27/21 Hospital Course Operations None Procedures None Summary of Care Provided Minutes Spent on Discharge: 50 Hospital Course: 71-year-old female with past medical history of hypertension who comes to the emergency department after multiple falls. Patient was recently in the ED on 01/21/21 after she fell. She had fracture of the right elbow for which she was put in a sling. She followed up with [facility] and was put in a cast. X-rays of the right knee done at the facility showed severe osteoarthritis. On 01/25/21 patient fell again. Patient stated that her right knee buckled causing her to fall on a flexed knee. She typically ambulates with a cane or walker. She already has pain in the left upper extremity. Her sister moved in out of state to help her. X-ray of the knee done in the ED showed acute nondisplaced vertical fracture of the lateral patellar facet. Patient was monitored overnight in the hospital with no acute events. Discussed with her primary orthopedic, Dr. Cardona, patient will follow up with him in 1 week, she is to keep the right knee in an immobilizer. She can bear weight as tolerated with the immobilizer. Physical Exam Narrative Physical exam: General: Obese elderly female with a cast in the right. Head: Normocephalic, atraumatic, no tenderness Eyes: PERRLA, EOMI ENT, no trauma, moist mucous membranes, no rhinorrhea Neck: Nontender, full range of motion, no spinal tenderness, deformities, step-off CVS: Regular rate and rhythm. S1-S2 present. No murmur, gallop or rub. Respiratory : clear to auscultation bilaterally, chest wall nontender, no wheezing Abdomen: Soft, nontender, nondistended, normal bowel sounds, no masses : Deferred Back: Nontender, no CVA tenderness, no midline spinal tenderness, deformities, step-offs Extremities: Right arm in cast Skin: Normal color, no trauma, abrasions Neuro: Alert, oriented, cranial nerves II through XII grossly intact. Psychiatry: Normal mood. Normal affect. Weight / BMI Weight Weight: 93.9 kg Body Mass Index (BMI) 39.1 ABG / Lab / Microbiology Data Result Diagrams: 01/26/21 14:00 01/26/21 14:00 Laboratory: Laboratory Results - last 24 hr 01/26/21 14:00: WBC 10.8, RBC 3.92 L, Hgb 10.8 L, Hct 34.7 L, MCV 88.5, MCH 27.6, MCHC 31.1 L, RDW Std Deviation 47.5 H, RDW Coeff of Zee 14.6, Plt Count 330, MPV 9.8, Immature Gran % (Auto) 0.600, Neut % (Auto) 79.5 H, Lymph % (Auto) 12.0 L, [place] % (Auto) 5.5, Eos % (Auto) 1.9, Baso % (Auto) 0.5, Absolute Neuts (auto) 8.6 H, Absolute Lymphs (auto) 1.29, Nucleated RBC % 0 01/26/21 14:00: Sodium 139, Potassium 3.8, Chloride 103, Carbon Dioxide 29.0, Anion Gap 7, BUN 35 H, Creatinine 1.32 H, Estim Creat Clear Calc 30.35, Est GFR (MDRD) Af Amer 51 L, Est GFR (MDRD) Non-Af 42 L, BUN/Creatinine Ratio 26.5 H, Glucose 137 H, Calcium 9.5, Total Bilirubin 0.50, AST 17, ALT 25, Alkaline Phosphatase 57, Total Protein 8.1, Albumin 3.2, Globulin 4.9 H, Albumin/Globulin Ratio 0.7 L 01/26/21 19:20: Urine Color Yellow, Urine Clarity Clear, Urine pH 5.0, Ur Specific [place] 1.015, Urine Protein Negative, Urine Glucose (UA) Normal, Urine Ketones Negative, Urine Occult Blood Negative, Urine Nitrite Negative, Urine Bilirubin Negative, Urine Urobilinogen Normal, Ur Leukocyte Esterase Negative, Urine RBC 0 SEEN, Urine WBC 0 SEEN, Ur Squamous Epith Cells 0 SEEN, Urine Bacteria 1+, Urine Mucus 0 SEEN 01/27/21 02:10: POC Glucose 72 01/27/21 06:20: Vitamin B12 585, Vitamin D 25-Hydroxy 45.5 01/27/21 07:00: POC Glucose 105 01/27/21 12:09: POC Glucose 188 H Microbiology: Microbiology 01/26/21 17:21 Nasal Secretion SARS-CoV-2 Antigen (Rapid) - Final Radiography Diagnostic Testing: Radiology Impression Chest X-Ray 01/26/21 14:38 IMPRESSION: No acute abnormality is seen. Electronically Signed: Jordan Jones MD at 15:00 EDT , Service support , Knee X-Ray 01/26/21 18:54 IMPRESSION: 1. Acute nondisplaced vertical fracture of the lateral patellar facet Electronically Signed: Rupesh Cronin MD at 20:16 EDT , Service support , D/C Instructions Please Follow Up With: [facility] Meaningful Use Info Meaningful Use Diagnoses (Choose all that apply): None applicable Discharge Plan Admission Admit Date/Time: 01/26/21 19:30 Primary Reason for Your Visit: Acute debility, recurrent falls Attending Provider: Key Chiang Primary Care Provider: Sulma Reagan Discharge Orders/Prescriptions Prescriptions: New acetaminophen [Tylenol] 325 mg Tablet 650 mg PO Q6H PRN PRN (Reason: Pain Score 1-10/Temp > 100.7 F) 7 Days Qty: 20 RF: 0 Continued melatonin 10 mg capsule 10 mg PO HS PRN (Reason: Sleep) RF: 0 sertraline [Zoloft] 100 mg tablet 200 mg PO DAILY RF: 0 apixaban 5 mg tablet 5 mg PO BID Qty: 180 RF: 3 amlodipine 10 mg tablet 10 mg PO DAILY Qty: 90 RF: 3 losartan 50 mg tablet 50 mg PO BID Qty: 180 RF: 3 simvastatin 20 mg tablet 20 mg PO QHS Qty: 90 RF: 3 metoprolol tartrate 50 mg tablet 50 mg PO BID Qty: 60 RF: 1 glimepiride 2 mg tablet 2 mg PO BID Qty: 180 RF: 3 oxybutynin chloride 15 mg tablet extended release 24hr 15 mg PO DAILY Qty: 90 RF: 1 No Action furosemide 40 mg tablet 40 mg PO DAILY RF: 0 ferrous sulfate 325 mg (65 mg iron) tablet 325 mg PO DAILY RF: 0 metformin 1,000 mg tablet 1,000 mg PO BID RF: 0 Januvia 100 mg tablet 100 mg PO DAILY RF: 0 Referrals / Follow Up: Sulma Reagan MD [Primary Care Provider] - Within 2 Weeks Micky Guy DO [STAFF PHYSICIAN] - Within 2 Weeks Disposition Disposition (needs filled in before D/C Order can be placed): Nursing Home Facility Charges/Coding Visit Charges Inpatient E&M: 79530 Disch Hosp
--- NOTE | 2021-01-27 15:28 | PHA.DC.MR ---
Pharmacy Service has performed discharge medication reconciliation for this patient. The patient's discharge medication list was reviewed for discrepancies and discrepancies were resolved. Home Medications melatonin 10 mg capsule 10 mg PO HS PRN 07/07/20 apixaban 5 mg tablet 5 mg PO BID #180 tab 10/20/20 amlodipine 10 mg tablet 10 mg PO DAILY #90 tab 12/01/20 furosemide 40 mg tablet 40 mg PO DAILY #90 tab 12/01/20 losartan 50 mg tablet 50 mg PO BID #180 tab 12/01/20 metformin 1,000 mg tablet 1,000 mg PO BID #180 tab 12/01/20 simvastatin 20 mg tablet 20 mg PO QHS #90 tab 12/01/20 glimepiride 2 mg tablet 2 mg PO BID #180 tab 12/12/20 metoprolol tartrate 50 mg tablet 50 mg PO BID #60 tab 12/12/20 sitagliptin 100 mg tablet 100 mg PO DAILY #90 tab 01/15/21 oxybutynin chloride 15 mg tablet,extended release 24 hr 15 mg PO DAILY #90 tab 01/22/21 ferrous sulfate 325 mg (65 mg iron) tablet 325 mg PO DAILY #90 tab 01/26/21 sertraline [Zoloft] 200 mg PO DAILY 01/26/21 acetaminophen [Tylenol] 650 mg PO Q6H PRN PRN 7 Days #20 tab 01/27/21
== END 2021-01-27 16:15 | disposition skilled nursing facility (03) ==
LOC: ED 19:36 → MS3 01-27 07:13
PROVIDERS: Admitting Provider Hospitalist; Emergency Provider Emergency Medicine; PCP Internal Medicine; Visit Provider Internal Medicine
DX: S82.091A Other fracture of right patella, initial encounter for closed fracture (principal); S42.401D Unspecified fracture of lower end of right humerus, subsequent encounter for fracture with routine healing; F41.9 Anxiety disorder, unspecified; M19.90 Unspecified osteoarthritis, unspecified site; F32.9 Major depressive disorder, single episode, unspecified; I10 Essential (primary) hypertension; E11.65 Type 2 diabetes mellitus with hyperglycemia; I48.0 Paroxysmal atrial fibrillation; G47.30 Sleep apnea, unspecified; R29.6 Repeated falls; E78.5 Hyperlipidemia, unspecified; E66.9 Obesity, unspecified; W19.XXXD Unspecified fall, subsequent encounter; W19.XXXA Unspecified fall, initial encounter; Z91.81 History of falling; Y93.89 Activity, other specified; Y92.9 Unspecified place or not applicable; Y99.9 Unspecified external cause status; Z79.01 Long term (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; Z79.84 Long term (current) use of oral hypoglycemic drugs; Z79.899 Other long term (current) drug therapy; Z87.891 Personal history of nicotine dependence; Z68.39 Body mass index [BMI] 39.0-39.9, adult
CPT/HCPCS: 36415; 71045; 73564; 80053; 81001; 82306; 82607; 82962; 85025; 87426; 93005; 97162; 97166; 99218; 99285; A4216; G0378

== ENCOUNTER 2021-01-27 16:20 | Inpatient (IN) | payer MEDICARE, SELFPAY ==
[2021-01-27 16:31] VITALS: BP 133/59; PULSE 81; RESP 18; TEMP 36.1; O2SAT 97; BMI 39.2
[2021-01-27 17:01] LABS: Bedside Glucose 145 mg/dL (70-110)
[2021-01-27 17:59] VITALS: PULSE 81
[2021-01-27] MEDS: Losartan Potassium 50 MG Tablet PO (17:59)
[2021-01-27] MEDS: Glimepiride 2 MG Tablet PO (17:59)
[2021-01-27] MEDS: Metoprolol Tartrate 50 MG Tablet PO (17:59)
[2021-01-27] MEDS: metFORMIN HCl 1,000 MG Tablet 1000 MG PO (17:59)
[2021-01-27] MEDS: APIXABAN 5 MG TABLET PO (17:59)
[2021-01-27] MEDS: Acetaminophen 325 MG Tablet 650 MG PO (19:59)
[2021-01-27] MEDS: Atorvastatin Calcium 10 MG Tablet PO (20:00)
--- NOTE | 2021-01-27 21:07 | HP.PCM_ITS ---
HPI - General General Date of Admission: 01/27/21 HPI Narrative 01/26/2021 JOSELINE RIDDLE, is a 71 Female who presents to [facility] Emergency Department with fall. Sent by PCP for rehabilitation placement. Fall 5 days prior, right elbow fracture. Right upper extremity cast per Dr. Guy at [facility]. Fell again, at baseline, walks with cane/walker. Unable to care for herself home alone. Cr 1.3, EKG normal, Chest X-ray negative, X-ray right knee showed patellar fracture. 01/26/2021 Admit to Hospital. PT/OT for debility, falls. Tylenol as needed. Continue diabetes medications, monitor sugars. 01/27/2021 Admit to TCU with debility, here for rehabilitation, strengthening, prior to discharge home alone. [facility] Medical History Abnormal mammogram of right breast Abnormal mammogram of right breast Afib Anemia Anxiety and depression Arthritis Breast lump COVID-19 vaccine series completed CVA (cerebral vascular accident) Depression with anxiety Diabetes Essential hypertension History of UTI Hyperlipidemia Kidney disease Non-rheumatic mitral valve stenosis Nonrheumatic aortic (valve) stenosis Paroxysmal atrial fibrillation Sleep apnea Venous insufficiency Vision problems Home Medications melatonin 10 mg capsule 10 mg PO HS PRN 07/07/20 [History Last Taken Unknown] apixaban 5 mg tablet 5 mg PO BID #180 tab 10/20/20 [Rx Last Taken 01/26/21] amlodipine 10 mg tablet 10 mg PO DAILY #90 tab 12/01/20 [Rx Last Taken 01/26/21] losartan 50 mg tablet 50 mg PO BID #180 tab 12/01/20 [Rx Last Taken 01/26/21] simvastatin 20 mg tablet 20 mg PO QHS #90 tab 12/01/20 [Rx Last Taken 01/25/21] glimepiride 2 mg tablet 2 mg PO BID #180 tab 12/12/20 [Rx Last Taken 01/26/21] metoprolol tartrate 50 mg tablet 50 mg PO BID #60 tab 12/12/20 [Rx Last Taken 01/26/21] oxybutynin chloride 15 mg tablet,extended release 24 hr 15 mg PO DAILY #90 tab 01/22/21 [Rx Last Taken 01/25/21] sertraline [Zoloft] 200 mg PO DAILY 01/26/21 [History Last Taken 01/25/21] Januvia 100 mg PO DAILY 01/27/21 [History Last Taken Unknown] acetaminophen [Tylenol] 650 mg PO Q6H PRN PRN 7 Days #20 tab 01/27/21 [Rx Last Taken Unknown] ferrous sulfate 325 mg PO DAILY 01/27/21 [History Last Taken Unknown] furosemide 40 mg PO DAILY 01/27/21 [History Last Taken Unknown] metformin 1,000 mg PO BID 01/27/21 [History Last Taken Unknown] Allergy/AdvReac Type Severity Reaction Status Date / Time fosinopril [From Monopril] Allergy Unknown unknown Verified 01/26/21 13:41 pioglitazone AdvReac Other Verified 01/26/21 13:41 Family History Father Diabetes Hypertension High cholesterol Heart disease Melanoma Surgical History History of back surgery History of carpal tunnel release History of hand surgery History of hysterectomy Social History (Updated 01/27/21 @ 21:[address] Mg Ramirez MD) household members: none Smoking Status: Former smoker how long ago did patient quit smokin years ago alcohol intake: current alcohol intake frequency: holidays/special occasions only substance use type: does not use what type of physical activity do you participate in: other details: aquasize ROS Constitutional Constitutional: Denies chills, fever(s) or weight gain ENT HEENT: Denies headache(s), nasal congestion or nasal discharge Cardiovascular Cardiovascular: Denies chest pain or palpitations Respiratory/Chest Respiratory/Chest: Denies cough, excessive phlegm production or shortness of breath with exertion Gastrointestinal Gastrointestinal: Denies abdominal pain, nausea or vomiting Genitourinary Genitourinary: Denies dysuria Musculoskeletal Musculoskeletal: Denies joint pain or joint swelling Integumentary Integumentary: Denies rash or wounds Neurologic Neurologic: Denies focal weakness, numbness or tingling Psychiatric Psychiatric: Reports auditory hallucinations; Denies anxiety, depression, homicidal ideation or suicidal ideation Vital Signs Vital Signs Vital Signs: 01/27/21 16:31 01/27/21 17:59 Temperature 96.9 F L Temperature Source Temporal Pulse Rate 81 81 Respiratory Rate 18 Blood Pressure 133/59 H Blood Pressure Mean 83 Blood Pressure Source Monitor Blood Pressure Position Semi-Fowlers Blood Pressure Location Left Forearm Pulse Ox 97 Oxygen Delivery Method Room Air Weight Weight: 94.404 kg Body Mass Index (BMI) 39.2 Physical Exam Const alert and oriented x3 General Appearance: cooperative Eyes PERRL and EOMs intact bilaterally Neck supple, no JVD and no carotid bruits Resp normal respiratory effort, normal air movement and clear to auscultation bilaterally Cardio regular rate and regular rhythm GI normal to inspection, nondistended, normoactive bowel sounds, non-tender and non-distended Extremity normal capillary refill Extremity Narrative: Right upper extremity splint, sling. General Extremity: Negative for edema Skin no rashes or lesions noted General Skin Exam: no breakdown Psych affect normal Appearance: appropriate Results Lab / Micro Data Labs: Laboratory Results - last 24 hr 01/27/21 16:52: POC Glucose 145 H Assessment & Plan Assessment/Plan (1) Debility: (2) Fall: QUALIFIERS: Encounter type: subsequent encounter Qualified Code(s): W19.XXXD - Unspecified fall, subsequent encounter (3) Closed fracture of right elbow: (4) Insomnia: (5) Atrial fibrillation: (6) Hypertension: (7) Edema: (8) Diabetes mellitus: (9) Hyperlipidemia: (10) Overactive bladder: (11) Iron deficiency anemia: (12) Depression: PLAN: 71 year old female with below past medical history hospitalized for fall, right elbow fracture, admitted to TCU with debility, here for rehabilitation, strengthening, prior to discharge home alone. * Debility - PT/OT. * Pain - Tylenol 1000mg Q6H prn pain (1-3), Oxycodone 5mg Q4H prn pain (4-10). * Bowel - Miralax 17gm daily, Senna/colace 1 tablet twice daily, Dulcolax 10mg daily prn. * Adult immunization - Administer prevnar 13, pneumovax 23, Fluvax, covid19 vaccine as appropriate. * DVT prophylaxis - Lovenox 40mg sc daily. * Hypertension - Metoprolol 50mg twice daily, Losartan 50mg twice daily, Amlodipine 10mg daily. * Atrial fibrillation - Metoprolol 50mg twice daily, Eliquis 5mg twice daily. * Hyperlipidemia - Atorvastatin 10mg QHS. * Iron deficiency anemia - Ferrous sulfate 325mg daily. * Edema - Lasix 40mg daily. * Diabetes Mellitus II - Metformin 1000mg twice daily, Glimepiride 2mg twice daily, Tradjenta 5mg daily. * Insomnia - Melatonin 10mg QHS PRN. * Depression - Sertraline 200mg daily, stable chronic nursing home use, GDR not recommended. * Overactive bladder - Tolterodine 4mg daily.
[2021-01-27 22:31] VITALS: PULSE 65; O2SAT 95
[2021-01-28 05:52] VITALS: BP 162/76; PULSE 72
[2021-01-28] MEDS: Senna/Docusate Sodium 1 Tablet PO ×2 (05:52→17:22)
[2021-01-28] MEDS: Furosemide 40 MG Tablet PO (05:52)
[2021-01-28] MEDS: LINAGLIPTIN 5 MG TABLET PO (05:52)
[2021-01-28] MEDS: Sertraline 100 MG Tablet 200 MG PO (05:52)
[2021-01-28] MEDS: Metoprolol Tartrate 50 MG Tablet PO ×2 (05:52→17:22)
[2021-01-28] MEDS: amLODIPine 10 MG Tablet PO (05:52)
[2021-01-28] MEDS: Tolterodine Tartrate 4 MG CAP.SA PO (05:52)
[2021-01-28] MEDS: APIXABAN 5 MG TABLET PO ×2 (05:53→17:22)
[2021-01-28] MEDS: Losartan Potassium 50 MG Tablet PO ×2 (05:53→17:22)
[2021-01-28] MEDS: Polyethylene Glycol 3350 17 GM PACKET PO (05:54)
[2021-01-28 08:26] LABS: Absolute Lymphocyte Count 2.36 X10^3/uL (0.83-4.51); Absolute Neutrophil Count 6.5 X10^3/uL (2.0-7.7); Basophil# 0.05 X10^3/uL; Basophil% 0.5 % (0-1); Eosinophil# 0.39 X10^3/uL; Eosinophils% 3.9 % (0-5); Hematocrit 34.9 % (37-47); Lymphocyte # 2.36 X10^3/ul (0.83-4.51); Lymphocyte % 23.9 % (19-41); Mean Corp Hgb Conc 31.5 g/dL (32-36); Mean Corpuscular Hgb 27.6 pg (27.0-32.0); Mean Corpuscular Volume 87.7 fL (81-99); Mean Platelet Vol. 9.7 fl (6.2-12.0); Monocyte# 0.54 X10^3/uL; Monocyte% 5.5 % (0-10); NRBC Flagged by Analyzer 0 % (0-5); Neutrophil % 65.8 % (47-70); Platelet Count 355 K/mm3 (150-450); RBC Distribution Width CV 14.4 % (11.6-14.6); RBC Distribution Width SD 46.4 fl (35.1-43.9); Red Blood Count 3.98 M/mm3 (4.2-5.4); White Blood Count 9.9 K/mm3 (4.4-11.0)
[2021-01-28] MEDS: Glimepiride 2 MG Tablet PO ×2 (08:27→17:23)
[2021-01-28] MEDS: Ferrous Sulfate 325 MG Tablet PO (08:27)
[2021-01-28] MEDS: metFORMIN HCl 1,000 MG Tablet 1000 MG PO ×2 (08:27→17:23)
[2021-01-28 08:52] LABS: Anion Gap 10 (5-15); BUN 35 mg/dL (7-18); BUN/Creat Ratio 26.9 RATIO (10-20); Calcium,Total 9.7 mg/dL (8.5-10.1); Chloride 102 mmol/L (98-107); EST Glomerular Filtration Rate 43 mL/min (>60); Est Glom Filt Rate - Afr Amer 52 mL/min (>60); Estimated Creatinine Clearance 30.82 ml/min; Glucose 137 mg/dL (74-106); Potassium 3.9 mmol/L (3.5-5.1); Sodium Level 137 mmol/L (136-145)
[2021-01-28] MEDS: Tuberculin,Purif.prot.deriv. 50 TU/ML Vial 0.1 ML ID (10:12)
--- NOTE | 2021-01-28 10:20 | NURSING ---
PT REFUSED THE PNEUMOVAX 23. PT STATED SHE WOULD GET IT AT HER DOCTORS OFFICE.
[2021-01-28] MEDS: oxyCODONE 5 MG Tablet PO ×2 (13:37→20:42)
--- NOTE | 2021-01-28 15:00 | PCM.PN.RX ---
Progress Note - Pharmacy Subjective: TCU Admission Objective: Allergies fosinopril [From Monopril] Allergy (Unknown, Verified 01/26/21 13:41) unknown pioglitazone Adverse Reaction (Verified 01/26/21 13:41) Other Current Medications Generic Name Dose Route Start Last Admin Trade Name Freq PRN Reason Stop Dose Admin Acetaminophen 1,000 mg 01/27/21 21:34 Acetaminophen 500 Mg Tablet PO Q6H PRN PRN Pain Score 1-3 Amlodipine Besylate 10 mg 01/28/21 06:00 01/28/21 05:52 Amlodipine 10 Mg Tablet PO 10 mg DAILY ROSALIND Administration Apixaban 5 mg 01/27/21 18:00 01/28/21 05:53 Apixaban 5 Mg Tablet PO 5 mg BID ROSALIND Administration Atorvastatin Calcium 10 mg 01/27/21 22:00 01/27/21 20:00 Atorvastatin Calcium 10 Mg Tablet PO 10 mg QHS ROSALIND Administration Bisacodyl 10 mg 01/27/21 21:32 Bisacodyl 5 Mg Tablet PO DAILY PRN Constipation Ferrous Sulfate 325 mg 01/28/21 08:00 01/28/21 08:27 Ferrous Sulfate 325 Mg Tablet PO 325 mg DAILYCM ROSALIND Administration Furosemide 40 mg 01/28/21 06:00 01/28/21 05:52 Furosemide 40 Mg Tablet PO 40 mg DAILY ROSALIND Administration Glimepiride 2 mg 01/27/21 17:00 01/28/21 08:27 Glimepiride 2 Mg Tablet PO 2 mg BIDCM ROSALIND Administration Linagliptin 5 mg 01/28/21 06:00 01/28/21 05:52 Linagliptin 5 Mg Tablet PO 5 mg DAILY ROSALIND Administration Losartan Potassium 50 mg 01/27/21 18:00 01/28/21 05:53 Losartan Potassium 50 Mg Tablet PO 50 mg BID ROSALIND Administration Melatonin 10 mg 01/27/21 16:46 Melatonin 10 Mg Tablet PO QHS PRN Sleep Metformin HCl 1,000 mg 01/27/21 17:00 01/28/21 08:27 Metformin Hcl 1,000 Mg Tablet PO 1,000 mg BIDCM ROSALIND Administration Metoprolol Tartrate 50 mg 01/27/21 18:00 01/28/21 05:52 Metoprolol Tartrate 50 Mg Tablet PO 50 mg BID ROSALIND Administration Oxycodone HCl 5 mg 01/27/21 21:32 01/28/21 13:37 Oxycodone 5 Mg Tablet PO 5 mg Q4H PRN PRN Administration Pain Score 4-10 Polyethylene Glycol 17 gm 01/28/21 06:00 01/28/21 05:54 Polyethylene Glycol 3350 17 Gm Packet PO 17 gm DAILY ROSALIND Administration Senna/Docusate Sodium 1 tablet 01/27/21 21:45 01/28/21 05:52 Senna/Docusate Sodium 1 Tablet PO 1 tablet BID ROSALIND Administration Sertraline HCl 200 mg 01/28/21 06:00 01/28/21 05:52 Sertraline 100 Mg Tablet PO 200 mg DAILY ROSALIND Administration Sodium Chloride 10 - 40 ml 01/27/21 21:20 0.9% Saline Lock 10 Ml Syringe IV UD PRN SALINE FLUSH Tolterodine Tartrate 4 mg 01/28/21 06:00 01/28/21 05:52 Tolterodine Tartrate 4 Mg Cap.Sa PO 4 mg DAILY ROSALIND Administration Tuberculin PPD 0.1 ml 02/04/21 10:00 Tuberculin,Purif.Prot.Deriv. 50 Tu/Ml Vial ID 02/04/21 10:01 X1 ONE Problem List (Last Reviewed 01/27/21 @ 21:[address] Mg Ramirez MD) Depression (Acute) Iron deficiency anemia (Acute) Overactive bladder (Acute) Hyperlipidemia (Acute) Diabetes mellitus (Acute) Edema (Acute) Hypertension (Chronic) Atrial fibrillation (Acute) Insomnia (Acute) Fall (Acute) Debility (Acute) Closed fracture of right elbow (Acute) Vital Signs Temp Pulse Resp BP Pulse Ox 96.9 F L 72 18 162/76 H 95 01/27/21 16:31 01/28/21 05:52 01/27/21 16:31 01/28/21 05:52 01/27/21 22:31 Oxygen Delivery Method Room Air Weight: 94.404 kg Body Mass Index (BMI) 39.2 Sodium 137 mmol/L (136-145) 01/28/21 08:14 Potassium 3.9 mmol/L (3.5-5.1) 01/28/21 08:14 Chloride 102 mmol/L (98-107) 01/28/21 08:14 Carbon Dioxide 25.0 mmol/L (21.0-32.0) 01/28/21 08:14 Anion Gap 10 (5-15) 01/28/21 08:14 BUN 35 mg/dL (7-18) H 01/28/21 08:14 Creatinine 1.30 mg/dL (0.55-1.02) H 01/28/21 08:14 Est GFR (MDRD) Af Amer 52 mL/min (>60) L 01/28/21 08:14 Est GFR (MDRD) Non-Af 43 mL/min (>60) L 01/28/21 08:14 BUN/Creatinine Ratio 26.9 RATIO (10-20) H 01/28/21 08:14 Glucose 137 mg/dL (74-106) H 01/28/21 08:14 Assessment/Plan: 1. Pain: acetaminophen 1000mg PO Q6H PRN pain 1-310 and oxycodone 5mg PO Q4H PRN pain 4-1010. Please continue to monitor for increased pain, PRN usage, constipation and respiratory depression. 2. Atrial fibrillation/hypertension: metoprolol tartrate 50mg PO BID, losartan 50mg PO BID, amlodipine 10mg PO daily, apixaban 5mg PO BID. Please continue to monitor HR (last 72), BP (last 162/76), hemoglobin (last 11g/dL), renal function, potassium (last 3.9mmol/L), swelling, and S/S of bleeding. 3. Hyperlipidemia: atorvastatin 10mg PO QHS. Please continue to monitor lipid panel (last 12/10/20) and muscle pain. 4. Edema: furosemide 40mg PO daily. Please continue to monitor for edema, renal function, potassium, and sodium (last 137mmol/L). 5. Iron deficiency anemia: ferrous sulfate 325mg PO DAILYCM. Please continue to monitor hemoglobin, constipation and dark stools. 6. Diabetes mellitus II: metformin 1000mg PO BIDCM, glimepiride 2mg PO BIDCM and linagliptin 5mg PO daily. Please continue to monitor glucose (last 137 mg/dL), hemoglobin A1c (last 7% 12/10/20), renal function and diarrhea. 7. Insomnia: melatonin 10mg PO QHS PRN insomnia. Please continue to monitor PRN usage. 8. Overactive bladder: tolterodine 4mg PO daily. Please continue to monitor for S/S of overactive bladder. Psychotropic Medications: 1. Depression: sertraline 200mg PO daily. Please see physician note regarding GDR. Unnecessary Medications: None Bowel Regimen: Miralax 17gm PO daily, senna/docusate 1T PO BID and bisacodyl 10mg PO daily PRN constipation. Please continue to monitor for constipation and PRN usage. Date of Note:: 01/28/21
--- NOTE | 2021-01-28 15:43 | NURSING ---
Called Dr. Guy's office to clarify weight bearing status for both right arm and Knee. Right arm is to remain non-weightbearing at this time. Right knee is to have immobilizer on at all times and no bending weight bearing as tolerated. .
[2021-01-28 15:56] LABS: Bedside Glucose 92 mg/dL (70-110)
[2021-01-28 16:00] VITALS: BP 128/64; PULSE 88; RESP 22; TEMP 36.3; O2SAT 94
[2021-01-28 17:22] VITALS: BP 128/64; PULSE 88
[2021-01-28] MEDS: Atorvastatin Calcium 10 MG Tablet PO (20:42)
[2021-01-28 21:36] LABS: Bedside Glucose 117 mg/dL (70-110)
[2021-01-29] MEDS: MELATONIN 10 MG TABLET PO (00:16)
[2021-01-29] MEDS: APIXABAN 5 MG TABLET PO ×2 (06:26→17:45)
[2021-01-29] MEDS: LINAGLIPTIN 5 MG TABLET PO (06:26)
[2021-01-29] MEDS: amLODIPine 10 MG Tablet PO (06:26)
[2021-01-29] MEDS: Furosemide 40 MG Tablet PO (06:26)
[2021-01-29] MEDS: Sertraline 100 MG Tablet 200 MG PO (06:26)
[2021-01-29] MEDS: Losartan Potassium 50 MG Tablet PO ×2 (06:26→17:45)
[2021-01-29] MEDS: Tolterodine Tartrate 4 MG CAP.SA PO (06:26)
[2021-01-29 06:27] VITALS: BP 142/72; PULSE 72
[2021-01-29] MEDS: Metoprolol Tartrate 50 MG Tablet PO ×2 (06:27→17:45)
[2021-01-29 06:31] LABS: Bedside Glucose 98 mg/dL (70-110)
[2021-01-29] MEDS: BENZOCAINE/MENTHOL 1 LOZENGE MUCOUS MEM (08:19)
[2021-01-29] MEDS: Acetaminophen 500 MG Tablet 1000 MG PO (08:20)
[2021-01-29] MEDS: metFORMIN HCl 1,000 MG Tablet 1000 MG PO ×2 (08:21→17:45)
[2021-01-29] MEDS: Ferrous Sulfate 325 MG Tablet PO (08:21)
[2021-01-29] MEDS: Glimepiride 2 MG Tablet PO ×2 (08:21→17:45)
[2021-01-29 08:50] VITALS: PULSE 73; RESP 18; O2SAT 95
--- NOTE | 2021-01-29 10:35 | CASEMGMT ---
Social Work Met with patient for initial assessment. Sister, Nakul, present in room. Pt permitted sister to remain for assessment. Discussed code status. Pt confirmed DNR-CCA with intubation. MOLST form reviewed and communication to , placed in chart. Pt has HCPOA on file naming both sisters - Nakul and Kim. Updated face sheet with pt's requested contacts. Explained [facility] insurance with NRD 01/29 and continued stay is not guaranteed at each review. Discussed discharge plans. Pt lives at home with 5 story home with nephew. However, nephew works and will not assist with personal care. Pt reports to having first floor set up at [place]. She was in the process of getting a hospital bed delivered from [facility] prior to admission, and will get the set up prior to DC. Pt has one step to enter to get to main living area at [place], with no handrail. Pt reports to using a FWW prior, however, admits to not consistently using assistive device, hence hx of multiple falls. Pt states she has a medical alert button but it doesn't have good coverage and already has the information to switch to [facility]'s [facility]; which will be completed prior to DC. Discussed alternative plan. Sister states she lives in [place] and other sister lives in [place]. If needed, they can stay for a week every six weeks or will discuss SNF. However, the primary goal is for pt to return home independently. Pt would like HHC and an aide to assist with baths. Pt used [facility] prior. She states she does have a friend who can bath once a week if needed. Sister inquired about SNF payment. Explained it would be private pay or [facility] or spend down to [facility] if considering longer term care. Briefly explained qualifications for [facility]. Sister and pt appreciative of information and assistance. Care plan meeting scheduled for 02/03 to discuss progress and revisit DC goals - both sisters plan to be in attendance. SW to continue to follow. SIMÓN GoveaW
[2021-01-29 11:10] LABS: Bedside Glucose 205 mg/dL (70-110)
[2021-01-29] MEDS: oxyCODONE 5 MG Tablet PO (11:34)
--- NOTE | 2021-01-29 13:43 | NURSING ---
FAMILY UPDATED IN ROOM BY PT.
[2021-01-29 14:06] VITALS: BP 153/87; PULSE 77; RESP 14; TEMP 36.6; O2SAT 95
[2021-01-29 16:41] LABS: Bedside Glucose 106 mg/dL (70-110)
[2021-01-29 17:45] VITALS: BP 153/87; PULSE 77
[2021-01-29] MEDS: Senna/Docusate Sodium 1 Tablet PO (17:45)
[2021-01-29] MEDS: Atorvastatin Calcium 10 MG Tablet PO (20:39)
[2021-01-29 22:36] LABS: Bedside Glucose 158 mg/dL (70-110)
[2021-01-30] MEDS: Polyethylene Glycol 3350 17 GM PACKET PO (05:51)
[2021-01-30 05:52] VITALS: BP 142/68; PULSE 73
[2021-01-30] MEDS: amLODIPine 10 MG Tablet PO (05:52)
[2021-01-30] MEDS: Metoprolol Tartrate 50 MG Tablet PO ×2 (05:52→17:49)
[2021-01-30] MEDS: Sertraline 100 MG Tablet 200 MG PO (05:52)
[2021-01-30] MEDS: Furosemide 40 MG Tablet PO (05:52)
[2021-01-30] MEDS: LINAGLIPTIN 5 MG TABLET PO (05:52)
[2021-01-30] MEDS: Tolterodine Tartrate 4 MG CAP.SA PO (05:52)
[2021-01-30] MEDS: Senna/Docusate Sodium 1 Tablet PO ×2 (05:53→17:44)
[2021-01-30] MEDS: APIXABAN 5 MG TABLET PO ×2 (05:53→17:45)
[2021-01-30] MEDS: Losartan Potassium 50 MG Tablet PO ×2 (05:53→17:46)
[2021-01-30 06:40] LABS: Bedside Glucose 111 mg/dL (70-110)
[2021-01-30] MEDS: Glimepiride 2 MG Tablet PO ×2 (08:51→17:46)
[2021-01-30] MEDS: Ferrous Sulfate 325 MG Tablet PO (08:51)
[2021-01-30] MEDS: metFORMIN HCl 1,000 MG Tablet 1000 MG PO ×2 (08:51→17:44)
[2021-01-30 09:00] VITALS: PULSE 78; RESP 18; O2SAT 95
--- NOTE | 2021-01-30 10:12 | NURSING ---
THIS NURSE WENT TO GET PT OUT OF BATH ROOM AND SEEN PT LEFT LEG BLEEDING. ASKED PT WHAT HAPPENED AND PT STATED I SCRATCHED OPEN A SORE. CLEANED WOUND UP AND APPLIED ADAPTIC AND DRY DRESSING. 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 RN AWARE.
[2021-01-30 10:56] LABS: Bedside Glucose 187 mg/dL (70-110)
[2021-01-30] MEDS: Acetaminophen 500 MG Tablet 1000 MG PO (14:08)
[2021-01-30 16:55] LABS: Bedside Glucose 124 mg/dL (70-110)
[2021-01-30 17:49] VITALS: BP 142/74; PULSE 85
[2021-01-30] MEDS: Bisacodyl 5 MG Tablet 10 MG PO (17:49)
--- NOTE | 2021-01-30 18:03 | NURSING ---
PT HAS NOT HAD A BM IN 3-4 DAYS. PRN DULCOLAX GIVEN.
[2021-01-30 18:15] VITALS: BP 142/74; PULSE 85; RESP 15; TEMP 36.1
[2021-01-30] MEDS: Atorvastatin Calcium 10 MG Tablet PO (20:36)
[2021-01-30 23:25] LABS: Bedside Glucose 173 mg/dL (70-110)
[2021-01-31 05:31] VITALS: BP 134/74; PULSE 81; RESP 16; TEMP 35.8; O2SAT 98
[2021-01-31] MEDS: Polyethylene Glycol 3350 17 GM PACKET PO (05:33)
[2021-01-31] MEDS: Tolterodine Tartrate 4 MG CAP.SA PO (05:33)
[2021-01-31] MEDS: Losartan Potassium 50 MG Tablet PO ×2 (05:33→17:30)
[2021-01-31 05:34] VITALS: BP 134/74; PULSE 81
[2021-01-31] MEDS: amLODIPine 10 MG Tablet PO (05:34)
[2021-01-31] MEDS: Furosemide 40 MG Tablet PO (05:34)
[2021-01-31] MEDS: Metoprolol Tartrate 50 MG Tablet PO ×2 (05:34→17:31)
[2021-01-31] MEDS: Senna/Docusate Sodium 1 Tablet PO ×2 (05:34→17:31)
[2021-01-31] MEDS: APIXABAN 5 MG TABLET PO ×2 (05:34→17:30)
[2021-01-31] MEDS: LINAGLIPTIN 5 MG TABLET PO (05:35)
[2021-01-31] MEDS: Sertraline 100 MG Tablet 200 MG PO (05:35)
[2021-01-31 06:26] LABS: Bedside Glucose 97 mg/dL (70-110)
[2021-01-31] MEDS: metFORMIN HCl 1,000 MG Tablet 1000 MG PO ×2 (08:35→17:30)
[2021-01-31] MEDS: Ferrous Sulfate 325 MG Tablet PO (08:36)
[2021-01-31] MEDS: Glimepiride 2 MG Tablet PO ×2 (08:36→17:30)
[2021-01-31] MEDS: Acetaminophen 500 MG Tablet 1000 MG PO (08:37)
[2021-01-31 10:00] VITALS: PULSE 75; O2SAT 92
[2021-01-31 11:46] LABS: Bedside Glucose 184 mg/dL (70-110)
[2021-01-31 16:00] VITALS: BP 119/68; PULSE 78; RESP 20; TEMP 36.4; O2SAT 85
[2021-01-31 16:45] LABS: Bedside Glucose 174 mg/dL (70-110)
[2021-01-31 17:31] VITALS: PULSE 78
[2021-01-31] MEDS: Atorvastatin Calcium 10 MG Tablet PO (20:18)
[2021-01-31 21:36] LABS: Bedside Glucose 78 mg/dL (70-110)
[2021-02-01] MEDS: oxyCODONE 5 MG Tablet PO (03:49)
[2021-02-01] MEDS: Acetaminophen 500 MG Tablet 1000 MG PO (03:50)
[2021-02-01] MEDS: Polyethylene Glycol 3350 17 GM PACKET PO (06:02)
[2021-02-01] MEDS: LINAGLIPTIN 5 MG TABLET PO (06:02)
[2021-02-01 06:03] VITALS: BP 162/82; PULSE 72
[2021-02-01] MEDS: Furosemide 40 MG Tablet PO (06:03)
[2021-02-01] MEDS: Tolterodine Tartrate 4 MG CAP.SA PO (06:03)
[2021-02-01] MEDS: Senna/Docusate Sodium 1 Tablet PO ×2 (06:03→17:29)
[2021-02-01] MEDS: APIXABAN 5 MG TABLET PO ×2 (06:03→17:28)
[2021-02-01] MEDS: Metoprolol Tartrate 50 MG Tablet PO ×2 (06:03→17:29)
[2021-02-01] MEDS: amLODIPine 10 MG Tablet PO (06:03)
[2021-02-01] MEDS: Losartan Potassium 50 MG Tablet PO ×2 (06:03→17:28)
[2021-02-01] MEDS: Sertraline 100 MG Tablet 200 MG PO (06:04)
[2021-02-01 06:07] VITALS: BP 162/82; PULSE 72; RESP 16; TEMP 36.4; O2SAT 98
[2021-02-01 06:25] LABS: Bedside Glucose 88 mg/dL (70-110)
[2021-02-01] MEDS: Glimepiride 2 MG Tablet PO ×2 (07:56→17:28)
[2021-02-01] MEDS: Ferrous Sulfate 325 MG Tablet PO (07:56)
[2021-02-01] MEDS: metFORMIN HCl 1,000 MG Tablet 1000 MG PO ×2 (07:56→17:28)
[2021-02-01 11:10] LABS: Bedside Glucose 141 mg/dL (70-110)
[2021-02-01 15:32] VITALS: BP 145/68; PULSE 86; RESP 22; TEMP 36.4; O2SAT 94
[2021-02-01 16:16] LABS: Bedside Glucose 170 mg/dL (70-110)
[2021-02-01 17:29] VITALS: PULSE 86
[2021-02-01 21:06] LABS: Bedside Glucose 118 mg/dL (70-110)
[2021-02-01] MEDS: Atorvastatin Calcium 10 MG Tablet PO (21:35)
[2021-02-02 05:36] VITALS: BP 111/65; PULSE 74
[2021-02-02] MEDS: Losartan Potassium 50 MG Tablet PO ×2 (05:36→17:33)
[2021-02-02] MEDS: Tolterodine Tartrate 4 MG CAP.SA PO (05:36)
[2021-02-02] MEDS: Metoprolol Tartrate 50 MG Tablet PO ×2 (05:36→17:33)
[2021-02-02] MEDS: Senna/Docusate Sodium 1 Tablet PO ×2 (05:36→17:33)
[2021-02-02] MEDS: amLODIPine 10 MG Tablet PO (05:36)
[2021-02-02] MEDS: LINAGLIPTIN 5 MG TABLET PO (05:36)
[2021-02-02] MEDS: Furosemide 40 MG Tablet PO (05:36)
[2021-02-02] MEDS: Polyethylene Glycol 3350 17 GM PACKET PO (05:36)
[2021-02-02] MEDS: Sertraline 100 MG Tablet 200 MG PO (05:36)
[2021-02-02] MEDS: APIXABAN 5 MG TABLET PO ×2 (05:36→17:33)
[2021-02-02] MEDS: oxyCODONE 5 MG Tablet PO (05:40)
[2021-02-02 06:16] LABS: Bedside Glucose 98 mg/dL (70-110)
[2021-02-02] MEDS: Glimepiride 2 MG Tablet PO ×2 (08:27→17:34)
[2021-02-02] MEDS: metFORMIN HCl 1,000 MG Tablet 1000 MG PO ×2 (08:27→17:34)
[2021-02-02] MEDS: Ferrous Sulfate 325 MG Tablet PO (08:27)
[2021-02-02 08:35] VITALS: BP 112/63; PULSE 74
[2021-02-02 10:51] LABS: Bedside Glucose 188 mg/dL (70-110)
[2021-02-02 16:43] VITALS: BP 125/69; PULSE 79; RESP 16; TEMP 36.2; O2SAT 93
[2021-02-02 17:05] LABS: Bedside Glucose 98 mg/dL (70-110)
[2021-02-02 17:33] VITALS: BP 125/69; PULSE 79
[2021-02-02 20:01] VITALS: PULSE 77; RESP 16; O2SAT 94
--- NOTE | 2021-02-02 20:09 | NURSING ---
RADON INSPECTOR came to this Nurse and stated patient very upset about care plan meeting. Patient very anxious and crying. This Nurse went into patient's room. Patient agitated and crying. They can't take my house. They can't take my cars. I am calling my java j2ee technical lead. Asked patient why she is so upset? Patient states, The care plan meeting. They can't condemn me and take my house. Explained to patient as much as I could about what the car plan meetings were for. Patient still upset and throwing stuff around. This nurse looked for different education sheets with no luck. Called Parul from [employer] Combining [employer] to see if there was any info I could give to patient to calm her down. Parul had this nurse transfer her into patient's room and she explained it to patient.
--- NOTE | 2021-02-02 21:09 | NURSING ---
Check on patient and patient much more calm. Patient stated she is happy after talking to Parul, but, I paid my house off and they cannot take it.
[2021-02-02 21:36] LABS: Bedside Glucose 124 mg/dL (70-110)
[2021-02-02] MEDS: MELATONIN 10 MG TABLET PO (22:18)
[2021-02-02] MEDS: Atorvastatin Calcium 10 MG Tablet PO (22:20)
[2021-02-02] MEDS: Menthol/Lanolin/Calamine/Znox 113 GM Tube 1 APPLIC TOPICAL (22:23)
[2021-02-03 05:34] VITALS: BP 144/77; PULSE 71
[2021-02-03 05:35] VITALS: BP 144/77; PULSE 71
[2021-02-03] MEDS: Furosemide 40 MG Tablet PO (05:35)
[2021-02-03] MEDS: amLODIPine 10 MG Tablet PO (05:35)
[2021-02-03] MEDS: LINAGLIPTIN 5 MG TABLET PO (05:35)
[2021-02-03] MEDS: Senna/Docusate Sodium 1 Tablet PO ×2 (05:35→17:16)
[2021-02-03] MEDS: Metoprolol Tartrate 50 MG Tablet PO ×2 (05:35→17:15)
[2021-02-03] MEDS: Sertraline 100 MG Tablet 200 MG PO (05:35)
[2021-02-03] MEDS: APIXABAN 5 MG TABLET PO ×2 (05:35→17:14)
[2021-02-03] MEDS: Losartan Potassium 50 MG Tablet PO ×2 (05:35→17:16)
[2021-02-03] MEDS: Tolterodine Tartrate 4 MG CAP.SA PO (05:35)
[2021-02-03] MEDS: Menthol/Lanolin/Calamine/Znox 113 GM Tube 1 APPLIC TOPICAL ×2 (05:36→21:13)
[2021-02-03 06:26] LABS: Bedside Glucose 83 mg/dL (70-110)
[2021-02-03] MEDS: metFORMIN HCl 1,000 MG Tablet 1000 MG PO ×2 (07:55→17:15)
[2021-02-03] MEDS: Ferrous Sulfate 325 MG Tablet PO (07:55)
[2021-02-03] MEDS: Glimepiride 2 MG Tablet PO ×2 (07:55→17:14)
--- NOTE | 2021-02-03 10:42 | CASEMGMT ---
Social Work IDT met with patient and sister, Nakul, and sister Kim via conference call, for care plan meeting. Discussed patient's progress in therapy. Explained [facility] insurance with NRD 02/10 and EDC 02/13. Explained and provided insurance care plan. Pt inquiring on when pt would get cast removed/f/u with Dr. Pacheco to call for f/u appt. Pt currently needing ADL assistance d/t arm and knee being immobilized, but optimistic once able to utilize extremities, pt will return to PLOF. Sister Nakul is returning home tomorrow then sister Kim is coming into town from February 19- to assist pt at home. IDT/pt/sister's requesting insurance to have pt remain in TCU progressing with therapy and nursing until Kim is in town to assist pt at home. Provided list of nonskilled ACCOUNTS PAYABLE ASSOCIATE to hire as an alternative plan. Inquired about pt's anxiety - if she slept well and doing better from when we spoke last night. Pt appreciative of conversation and states she is doing better, but still anxious - I like to be in control and I don't want my home taken from me. Reassured pt her home will not be taken. Offered to request from an increase in anxiety meds and possible PRN dose to assist. Pt agreeable. Offered ongoing support. Pt and sister appreciative. Will continue to follow. SIMÓN Govea
[2021-02-03] MEDS: oxyCODONE 5 MG Tablet PO (11:09)
[2021-02-03 11:10] LABS: Bedside Glucose 161 mg/dL (70-110)
[2021-02-03 14:41] VITALS: BP 125/66; PULSE 77; RESP 16; TEMP 36.6; O2SAT 95
[2021-02-03 17:15] VITALS: PULSE 77
[2021-02-03 18:26] LABS: Bedside Glucose 242 mg/dL (70-110)
[2021-02-03] MEDS: Atorvastatin Calcium 10 MG Tablet PO (21:14)
[2021-02-03 21:31] LABS: Bedside Glucose 175 mg/dL (70-110)
[2021-02-03] MEDS: MELATONIN 10 MG TABLET PO (23:42)
[2021-02-04 05:56] LABS: Basophil% 0.5 % (0-1); Eosinophils% 3.5 % (0-5); Hematocrit 32.1 % (37-47); Hemoglobin 10.1 g/dL (12.0-15.0); Lymphocyte % 23.8 % (19-41); Mean Corp Hgb Conc 31.5 g/dL (32-36); Mean Corpuscular Hgb 27.8 pg (27.0-32.0); Mean Corpuscular Volume 88.4 fL (81-99); Mean Platelet Vol. 9.9 fl (6.2-12.0); Monocyte% 6.5 % (0-10); Neutrophil % 65.2 % (47-70); Platelet Count 280 K/mm3 (150-450); RBC Distribution Width CV 14.5 % (11.6-14.6); RBC Distribution Width SD 47.1 fl (35.1-43.9); Red Blood Count 3.63 M/mm3 (4.2-5.4); White Blood Count 8.4 K/mm3 (4.4-11.0)
[2021-02-04 05:57] LABS: Absolute Lymphocyte Count 1.99 X10^3/uL (0.83-4.51); Absolute Neutrophil Count 5.5 X10^3/uL (2.0-7.7); Basophil# 0.04 X10^3/uL; Eosinophil# 0.29 X10^3/uL; Lymphocyte # 1.99 X10^3/ul (0.83-4.51); Monocyte# 0.54 X10^3/uL; NRBC Flagged by Analyzer 0 % (0-5); Neutrophil # 5.46 X10^3/uL (2.7-7.7)
[2021-02-04 06:16] LABS: Bedside Glucose 93 mg/dL (70-110)
[2021-02-04 06:28] LABS: Anion Gap 6 (5-15); BUN 50 mg/dL (7-18); BUN/Creat Ratio 37.6 RATIO (10-20); Calcium,Total 9.2 mg/dL (8.5-10.1); Chloride 104 mmol/L (98-107); Creatinine, Serum 1.33 mg/dL (0.55-1.02); EST Glomerular Filtration Rate 42 mL/min (>60); Est Glom Filt Rate - Afr Amer 51 mL/min (>60); Estimated Creatinine Clearance 30.12 ml/min; Glucose 109 mg/dL (74-106); Potassium 3.8 mmol/L (3.5-5.1); Sodium Level 137 mmol/L (136-145)
[2021-02-04] MEDS: Furosemide 40 MG Tablet PO (06:38)
[2021-02-04] MEDS: APIXABAN 5 MG TABLET PO ×2 (06:38→17:43)
[2021-02-04] MEDS: Tolterodine Tartrate 4 MG CAP.SA PO (06:38)
[2021-02-04 06:39] VITALS: BP 155/74; PULSE 73
[2021-02-04] MEDS: Metoprolol Tartrate 50 MG Tablet PO (06:39)
[2021-02-04] MEDS: LINAGLIPTIN 5 MG TABLET PO (06:39)
[2021-02-04] MEDS: Losartan Potassium 50 MG Tablet PO ×2 (06:39→20:59)
[2021-02-04] MEDS: Sertraline 100 MG Tablet 200 MG PO (06:39)
[2021-02-04] MEDS: Menthol/Lanolin/Calamine/Znox 113 GM Tube 1 APPLIC TOPICAL ×2 (06:39→20:59)
[2021-02-04] MEDS: Senna/Docusate Sodium 1 Tablet PO ×2 (06:39→17:42)
[2021-02-04] MEDS: amLODIPine 10 MG Tablet PO (06:39)
[2021-02-04] MEDS: metFORMIN HCl 1,000 MG Tablet 1000 MG PO ×2 (08:18→17:42)
[2021-02-04] MEDS: Glimepiride 2 MG Tablet PO ×2 (08:18→17:42)
[2021-02-04] MEDS: Ferrous Sulfate 325 MG Tablet PO (08:18)
--- NOTE | 2021-02-04 11:12 | NURSING ---
Pt refused TB test stating I had one it was negative I will not let you do another one When asked if she would be willing to have a chest Xray if the doctor reccommends one, pt states Nope I had a chest xray down in ER you can look that one up if you want.
[2021-02-04 11:20] LABS: Bedside Glucose 133 mg/dL (70-110)
--- NOTE | 2021-02-04 13:35 | NURSING ---
At approx 1325 staff alerted this nurse to pt sitting on the floor in the dining room. Upon entering the dining room, pt was sitting on the floor in front of her recliner chair with both legs out in front of her and arms down at her side. Pt immediately assessed by this nurse. No injury noted at this time, pt denies pain, VS WNL, ROM WNL, no internal/external rotation of dion hips, Neuro checks WNL, PERRLA, when resident was questioned as to what she was doing pt stated she had to use the restroom. Floor noted to be clean/dry and free from clutter. Pt had on proper fitting shoes, assisted back into recliner x2 assist, Dr. Ramirez updated and N.O. for neuro checks per policy
[2021-02-04 15:30] VITALS: BP 104/58; PULSE 77; RESP 16; TEMP 36.3; O2SAT 93
[2021-02-04 16:31] LABS: Bedside Glucose 151 mg/dL (70-110)
[2021-02-04 17:51] VITALS: BP 105/45; PULSE 82
[2021-02-04] MEDS: Acetaminophen 500 MG Tablet 1000 MG PO (20:57)
[2021-02-04] MEDS: Nystatin Powder 15gm Bottle 1 APPLIC TOPICAL (20:59)
[2021-02-04] MEDS: Atorvastatin Calcium 10 MG Tablet PO (21:00)
[2021-02-04 21:26] LABS: Bedside Glucose 166 mg/dL (70-110)
[2021-02-04 22:00] VITALS: PULSE 86
[2021-02-04] MEDS: MELATONIN 10 MG TABLET PO (22:58)
[2021-02-05 06:22] LABS: Bedside Glucose 73 mg/dL (70-110)
[2021-02-05] MEDS: Furosemide 40 MG Tablet PO (06:32)
[2021-02-05] MEDS: APIXABAN 5 MG TABLET PO ×2 (06:32→17:26)
[2021-02-05] MEDS: Losartan Potassium 50 MG Tablet PO ×2 (06:32→17:26)
[2021-02-05] MEDS: LINAGLIPTIN 5 MG TABLET PO (06:32)
[2021-02-05] MEDS: Sertraline 100 MG Tablet 200 MG PO (06:32)
[2021-02-05] MEDS: amLODIPine 10 MG Tablet PO (06:32)
[2021-02-05] MEDS: Nystatin Powder 15gm Bottle 1 APPLIC TOPICAL ×2 (06:32→21:31)
[2021-02-05] MEDS: Tolterodine Tartrate 4 MG CAP.SA PO (06:32)
[2021-02-05] MEDS: Menthol/Lanolin/Calamine/Znox 113 GM Tube 1 APPLIC TOPICAL ×2 (06:32→21:32)
[2021-02-05] MEDS: Senna/Docusate Sodium 1 Tablet PO ×2 (06:32→17:28)
[2021-02-05 06:33] VITALS: BP 134/84; PULSE 75
[2021-02-05] MEDS: Metoprolol Tartrate 50 MG Tablet PO ×2 (06:33→17:30)
--- NOTE | 2021-02-05 07:31 | MDS.RN ---
Information for the mds was obtained from review of the clinical record, interview of resident, staff, and direct observation of resident's care.
[2021-02-05] MEDS: Glimepiride 2 MG Tablet PO ×2 (09:10→17:26)
[2021-02-05] MEDS: metFORMIN HCl 1,000 MG Tablet 1000 MG PO ×2 (09:10→17:26)
[2021-02-05] MEDS: Ferrous Sulfate 325 MG Tablet PO (09:10)
[2021-02-05 09:20] VITALS: PULSE 77; RESP 18; O2SAT 97
[2021-02-05 11:00] LABS: Bedside Glucose 195 mg/dL (70-110)
[2021-02-05 16:00] VITALS: BP 114/59; PULSE 85; RESP 20; TEMP 36.6; O2SAT 95
[2021-02-05 16:26] LABS: Bedside Glucose 168 mg/dL (70-110)
[2021-02-05 17:30] VITALS: BP 115/56; PULSE 89
[2021-02-05 17:35] VITALS: BP 115/56; PULSE 89
[2021-02-05] MEDS: Acetaminophen 500 MG Tablet 1000 MG PO (21:29)
[2021-02-05] MEDS: MELATONIN 10 MG TABLET PO (21:29)
[2021-02-05 21:30] LABS: Bedside Glucose 167 mg/dL (70-110)
[2021-02-05] MEDS: Atorvastatin Calcium 10 MG Tablet PO (21:30)
[2021-02-06] MEDS: oxyCODONE 5 MG Tablet PO ×2 (01:45→07:48)
[2021-02-06] MEDS: Losartan Potassium 50 MG Tablet PO ×2 (05:56→17:30)
[2021-02-06] MEDS: Tolterodine Tartrate 4 MG CAP.SA PO (05:56)
[2021-02-06] MEDS: APIXABAN 5 MG TABLET PO ×2 (05:56→17:29)
[2021-02-06] MEDS: Furosemide 40 MG Tablet PO (05:56)
[2021-02-06 05:57] VITALS: BP 133/96; PULSE 72
[2021-02-06] MEDS: Metoprolol Tartrate 50 MG Tablet PO ×2 (05:57→17:30)
[2021-02-06] MEDS: Senna/Docusate Sodium 1 Tablet PO ×2 (05:57→17:31)
[2021-02-06] MEDS: Sertraline 100 MG Tablet 200 MG PO (05:57)
[2021-02-06] MEDS: LINAGLIPTIN 5 MG TABLET PO (05:57)
[2021-02-06] MEDS: amLODIPine 10 MG Tablet PO (05:57)
[2021-02-06 07:00] LABS: Bedside Glucose 146 mg/dL (70-110)
[2021-02-06] MEDS: metFORMIN HCl 1,000 MG Tablet 1000 MG PO ×2 (07:46→17:30)
[2021-02-06] MEDS: Ferrous Sulfate 325 MG Tablet PO (07:46)
[2021-02-06] MEDS: Glimepiride 2 MG Tablet PO ×2 (07:46→17:29)
[2021-02-06] MEDS: Nystatin Powder 15gm Bottle 1 APPLIC TOPICAL ×2 (09:07→21:30)
[2021-02-06] MEDS: Menthol/Lanolin/Calamine/Znox 113 GM Tube 1 APPLIC TOPICAL ×2 (09:08→21:30)
[2021-02-06 14:53] VITALS: BP 118/68; PULSE 83; RESP 21; TEMP 36.4; O2SAT 96
[2021-02-06 16:35] LABS: Bedside Glucose 121 mg/dL (70-110)
[2021-02-06 17:30] VITALS: BP 118/68; PULSE 83
[2021-02-06 21:31] LABS: Bedside Glucose 106 mg/dL (70-110)
[2021-02-06] MEDS: Acetaminophen 500 MG Tablet 1000 MG PO (21:31)
[2021-02-06] MEDS: MELATONIN 10 MG TABLET PO (21:31)
[2021-02-06] MEDS: Atorvastatin Calcium 10 MG Tablet PO (21:32)
[2021-02-06 22:00] VITALS: PULSE 76; O2SAT 93
[2021-02-07 06:16] VITALS: BP 132/71; PULSE 70
[2021-02-07] MEDS: Furosemide 40 MG Tablet PO (06:16)
[2021-02-07] MEDS: Tolterodine Tartrate 4 MG CAP.SA PO (06:16)
[2021-02-07] MEDS: Senna/Docusate Sodium 1 Tablet PO ×2 (06:16→16:59)
[2021-02-07] MEDS: amLODIPine 10 MG Tablet PO (06:16)
[2021-02-07] MEDS: APIXABAN 5 MG TABLET PO ×2 (06:16→17:00)
[2021-02-07] MEDS: Losartan Potassium 50 MG Tablet PO ×2 (06:16→16:58)
[2021-02-07] MEDS: LINAGLIPTIN 5 MG TABLET PO (06:16)
[2021-02-07] MEDS: Sertraline 100 MG Tablet 200 MG PO (06:16)
[2021-02-07] MEDS: Metoprolol Tartrate 50 MG Tablet PO ×2 (06:16→16:59)
[2021-02-07] MEDS: Menthol/Lanolin/Calamine/Znox 113 GM Tube 1 APPLIC TOPICAL ×2 (06:17→20:13)
[2021-02-07] MEDS: Nystatin Powder 15gm Bottle 1 APPLIC TOPICAL ×2 (06:17→16:59)
[2021-02-07 06:26] LABS: Bedside Glucose 71 mg/dL (70-110)
[2021-02-07] MEDS: metFORMIN HCl 1,000 MG Tablet 1000 MG PO ×2 (08:31→16:58)
[2021-02-07] MEDS: Glimepiride 2 MG Tablet PO ×2 (08:31→16:58)
[2021-02-07] MEDS: Ferrous Sulfate 325 MG Tablet PO (08:31)
[2021-02-07 11:00] LABS: Bedside Glucose 194 mg/dL (70-110)
[2021-02-07 14:34] VITALS: BP 115/60; PULSE 69; RESP 16; TEMP 36.1; O2SAT 94
[2021-02-07 16:51] LABS: Bedside Glucose 141 mg/dL (70-110)
[2021-02-07 16:59] VITALS: PULSE 85
[2021-02-07] MEDS: Atorvastatin Calcium 10 MG Tablet PO (20:14)
[2021-02-07 21:26] LABS: Bedside Glucose 149 mg/dL (70-110)
[2021-02-07] MEDS: Acetaminophen 500 MG Tablet 1000 MG PO (22:52)
[2021-02-08] MEDS: Menthol/Lanolin/Calamine/Znox 113 GM Tube 1 APPLIC TOPICAL ×2 (05:53→22:49)
[2021-02-08] MEDS: APIXABAN 5 MG TABLET PO ×2 (05:53→17:16)
[2021-02-08] MEDS: Furosemide 40 MG Tablet PO (05:54)
[2021-02-08] MEDS: Senna/Docusate Sodium 1 Tablet PO ×2 (05:54→17:15)
[2021-02-08] MEDS: Tolterodine Tartrate 4 MG CAP.SA PO (05:54)
[2021-02-08] MEDS: LINAGLIPTIN 5 MG TABLET PO (05:54)
[2021-02-08] MEDS: Sertraline 100 MG Tablet 200 MG PO (05:54)
[2021-02-08 05:55] VITALS: BP 131/64; PULSE 75
[2021-02-08] MEDS: Metoprolol Tartrate 50 MG Tablet PO ×2 (05:55→17:15)
[2021-02-08] MEDS: Nystatin Powder 15gm Bottle 1 APPLIC TOPICAL ×2 (05:55→17:16)
[2021-02-08] MEDS: Losartan Potassium 50 MG Tablet PO ×2 (05:55→17:15)
[2021-02-08] MEDS: amLODIPine 10 MG Tablet PO (05:55)
[2021-02-08 06:41] LABS: Bedside Glucose 70 mg/dL (70-110)
[2021-02-08] MEDS: Ferrous Sulfate 325 MG Tablet PO (07:56)
[2021-02-08] MEDS: Glimepiride 2 MG Tablet PO ×2 (07:56→17:16)
[2021-02-08] MEDS: metFORMIN HCl 1,000 MG Tablet 1000 MG PO ×2 (07:56→17:15)
[2021-02-08 10:51] LABS: Bedside Glucose 136 mg/dL (70-110)
[2021-02-08 14:33] VITALS: BP 124/61; PULSE 80; RESP 16; TEMP 36.4; O2SAT 96
[2021-02-08 16:40] LABS: Bedside Glucose 91 mg/dL (70-110)
[2021-02-08 17:15] VITALS: PULSE 80
[2021-02-08 21:31] LABS: Bedside Glucose 130 mg/dL (70-110)
[2021-02-08] MEDS: MELATONIN 10 MG TABLET PO (22:30)
[2021-02-08] MEDS: Atorvastatin Calcium 10 MG Tablet PO (22:30)
[2021-02-08] MEDS: Acetaminophen 500 MG Tablet 1000 MG PO (22:38)
[2021-02-09 06:15] LABS: Bedside Glucose 71 mg/dL (70-110)
[2021-02-09] MEDS: Losartan Potassium 50 MG Tablet PO ×2 (06:18→17:06)
[2021-02-09] MEDS: Furosemide 40 MG Tablet PO (06:19)
[2021-02-09] MEDS: Senna/Docusate Sodium 1 Tablet PO ×2 (06:19→17:06)
[2021-02-09] MEDS: amLODIPine 10 MG Tablet PO (06:19)
[2021-02-09] MEDS: LINAGLIPTIN 5 MG TABLET PO (06:19)
[2021-02-09] MEDS: Tolterodine Tartrate 4 MG CAP.SA PO (06:19)
[2021-02-09] MEDS: APIXABAN 5 MG TABLET PO ×2 (06:19→17:06)
[2021-02-09] MEDS: Sertraline 100 MG Tablet 200 MG PO (06:19)
[2021-02-09 06:20] VITALS: BP 145/77; PULSE 68
[2021-02-09] MEDS: Menthol/Lanolin/Calamine/Znox 113 GM Tube 1 APPLIC TOPICAL ×2 (06:20→21:43)
[2021-02-09] MEDS: Nystatin Powder 15gm Bottle 1 APPLIC TOPICAL (06:20)
[2021-02-09] MEDS: Metoprolol Tartrate 50 MG Tablet PO ×2 (06:20→17:06)
[2021-02-09] MEDS: Glimepiride 2 MG Tablet PO ×2 (08:28→17:06)
[2021-02-09] MEDS: Ferrous Sulfate 325 MG Tablet PO (08:28)
[2021-02-09] MEDS: Acetaminophen 500 MG Tablet 1000 MG PO ×2 (08:28→21:38)
[2021-02-09] MEDS: metFORMIN HCl 1,000 MG Tablet 1000 MG PO ×2 (08:29→17:06)
--- NOTE | 2021-02-09 09:15 | NURSING ---
THIS NURSE CALLED OFFICE TO CLARIFY ON A SHOWER FOR PT. THE NURSE STATED THAT KNEE IMMOBILIZER CAN COME OFF FOR HYGIENE BUT NO SHOWER DUE TO CAST ON RIGHT ARM TILL DR. REDMOND OKS IT. RN AWARE
[2021-02-09 10:20] VITALS: PULSE 71; RESP 18; O2SAT 94
[2021-02-09 11:06] LABS: Bedside Glucose 159 mg/dL (70-110)
[2021-02-09 14:30] VITALS: BP 126/54; PULSE 78; RESP 18; TEMP 35.7; O2SAT 94
[2021-02-09 16:21] LABS: Bedside Glucose 111 mg/dL (70-110)
[2021-02-09 17:06] VITALS: BP 126/54; PULSE 78
--- NOTE | 2021-02-09 17:57 | NURSING ---
PT CALLED THIS NURSE TO ROOM. PT VERY UPSET WITH HER DIET AND STATED SHE JUST CANT LIVE ON WHAT THEY ARE GIVING HER AND WILL ORDER OUT IF SHE HAS TO. THIS NURSE STATED TO PT THAT I WOULD LEAVE MESSAGE WITH THE GASOLINE TRUCK CRANE OPERATOR. PT THANKED THIS NURSE. REPORTED TO RN
[2021-02-09] MEDS: Atorvastatin Calcium 10 MG Tablet PO (21:38)
[2021-02-09] MEDS: MELATONIN 10 MG TABLET PO (21:38)
[2021-02-09 21:45] LABS: Bedside Glucose 124 mg/dL (70-110)
[2021-02-10] MEDS: LORazepam 0.5 MG Tablet PO ×2 (01:27→22:43)
[2021-02-10] MEDS: Menthol/Lanolin/Calamine/Znox 113 GM Tube 1 APPLIC TOPICAL ×2 (06:13→22:45)
[2021-02-10] MEDS: LINAGLIPTIN 5 MG TABLET PO (06:14)
[2021-02-10] MEDS: Sertraline 100 MG Tablet 200 MG PO (06:14)
[2021-02-10 06:15] VITALS: BP 121/43; PULSE 71
[2021-02-10] MEDS: Furosemide 40 MG Tablet PO (06:15)
[2021-02-10] MEDS: Metoprolol Tartrate 50 MG Tablet PO ×2 (06:15→17:56)
[2021-02-10] MEDS: Losartan Potassium 50 MG Tablet PO ×2 (06:15→17:56)
[2021-02-10] MEDS: Senna/Docusate Sodium 1 Tablet PO (06:15)
[2021-02-10] MEDS: amLODIPine 10 MG Tablet PO (06:15)
[2021-02-10] MEDS: APIXABAN 5 MG TABLET PO ×2 (06:15→17:56)
[2021-02-10] MEDS: Tolterodine Tartrate 4 MG CAP.SA PO (06:15)
[2021-02-10 06:20] LABS: Bedside Glucose 71 mg/dL (70-110)
[2021-02-10] MEDS: Nystatin Powder 15gm Bottle 1 APPLIC TOPICAL ×2 (06:21→22:45)
[2021-02-10] MEDS: metFORMIN HCl 1,000 MG Tablet 1000 MG PO ×2 (08:32→17:55)
[2021-02-10] MEDS: Ferrous Sulfate 325 MG Tablet PO (08:32)
[2021-02-10] MEDS: Glimepiride 2 MG Tablet PO ×2 (08:32→17:55)
[2021-02-10 11:15] LABS: Bedside Glucose 162 mg/dL (70-110)
[2021-02-10 14:05] VITALS: BP 137/77; PULSE 60; RESP 18; TEMP 36.6; O2SAT 97
--- NOTE | 2021-02-10 16:09 | CASEMGMT ---
Social Work Left message with sister, Nakul, to notify insurance approved additional days with NRD 02/16 and to anticipate DC 02/19 which should line up with other sister, Kim, assisting pt at DC in her home. Will continue to follow. Parul Haq, YARD ASSOCIATE ARTIST MODEL
[2021-02-10 17:45] LABS: Bedside Glucose 123 mg/dL (70-110)
[2021-02-10 17:56] VITALS: BP 137/77; PULSE 60
[2021-02-10 21:31] LABS: Bedside Glucose 162 mg/dL (70-110)
[2021-02-10] MEDS: Atorvastatin Calcium 10 MG Tablet PO (22:44)
[2021-02-11 00:57] VITALS: PULSE 72; RESP 12; O2SAT 96
[2021-02-11] MEDS: LINAGLIPTIN 5 MG TABLET PO (04:56)
[2021-02-11] MEDS: Menthol/Lanolin/Calamine/Znox 113 GM Tube 1 APPLIC TOPICAL ×2 (04:56→22:11)
[2021-02-11] MEDS: Sertraline 100 MG Tablet 200 MG PO (04:57)
[2021-02-11 04:58] VITALS: BP 137/79; PULSE 77
[2021-02-11] MEDS: amLODIPine 10 MG Tablet PO (04:58)
[2021-02-11] MEDS: Metoprolol Tartrate 50 MG Tablet PO ×2 (04:58→17:14)
[2021-02-11] MEDS: Furosemide 40 MG Tablet PO (04:59)
[2021-02-11] MEDS: Tolterodine Tartrate 4 MG CAP.SA PO (04:59)
[2021-02-11] MEDS: APIXABAN 5 MG TABLET PO ×2 (04:59→17:13)
[2021-02-11] MEDS: Losartan Potassium 50 MG Tablet PO ×2 (04:59→17:14)
[2021-02-11] MEDS: Nystatin Powder 15gm Bottle 1 APPLIC TOPICAL ×2 (04:59→17:16)
[2021-02-11 06:06] LABS: Absolute Lymphocyte Count 1.57 X10^3/uL (0.83-4.51); Absolute Neutrophil Count 5.4 X10^3/uL (2.0-7.7); Basophil# 0.03 X10^3/uL; Basophil% 0.4 % (0-1); Eosinophil# 0.27 X10^3/uL; Eosinophils% 3.4 % (0-5); Hematocrit 32.9 % (37-47); Hemoglobin 10.5 g/dL (12.0-15.0); Lymphocyte # 1.57 X10^3/ul (0.83-4.51); Mean Corp Hgb Conc 31.9 g/dL (32-36); Mean Corpuscular Hgb 27.6 pg (27.0-32.0); Mean Corpuscular Volume 86.6 fL (81-99); Mean Platelet Vol. 10.3 fl (6.2-12.0); Monocyte% 6.4 % (0-10); NRBC Flagged by Analyzer 0 % (0-5); Neutrophil # 5.44 X10^3/uL (2.7-7.7); Neutrophil % 69.2 % (47-70); Platelet Count 254 K/mm3 (150-450); RBC Distribution Width CV 14.3 % (11.6-14.6); RBC Distribution Width SD 45.8 fl (35.1-43.9); White Blood Count 7.9 K/mm3 (4.4-11.0)
[2021-02-11 06:26] LABS: Bedside Glucose 67 mg/dL (70-110)
[2021-02-11 06:39] LABS: Anion Gap 9 (5-15); BUN 47 mg/dL (7-18); Calcium,Total 9.2 mg/dL (8.5-10.1); Chloride 105 mmol/L (98-107); Creatinine, Serum 1.12 mg/dL (0.55-1.02); EST Glomerular Filtration Rate 51 mL/min (>60); Est Glom Filt Rate - Afr Amer 62 mL/min (>60); Estimated Creatinine Clearance 35.77 ml/min; Glucose 61 mg/dL (74-106); Potassium 4.1 mmol/L (3.5-5.1); Sodium Level 139 mmol/L (136-145)
[2021-02-11 06:56] LABS: Bedside Glucose 110 mg/dL (70-110)
[2021-02-11] MEDS: metFORMIN HCl 1,000 MG Tablet 1000 MG PO ×2 (08:20→17:13)
[2021-02-11] MEDS: Glimepiride 2 MG Tablet PO ×2 (08:20→17:15)
[2021-02-11] MEDS: Ferrous Sulfate 325 MG Tablet PO (08:20)
[2021-02-11 11:06] LABS: Bedside Glucose 133 mg/dL (70-110)
[2021-02-11 16:31] LABS: Bedside Glucose 203 mg/dL (70-110)
[2021-02-11 16:33] VITALS: BP 134/63; PULSE 94; RESP 20; TEMP 36.6; O2SAT 94
[2021-02-11 17:14] VITALS: PULSE 94
[2021-02-11] MEDS: Senna/Docusate Sodium 1 Tablet PO (17:15)
[2021-02-11 21:55] LABS: Bedside Glucose 138 mg/dL (70-110)
[2021-02-11] MEDS: Atorvastatin Calcium 10 MG Tablet PO (22:11)
[2021-02-12 06:00] VITALS: BP 167/86; PULSE 81
[2021-02-12] MEDS: Sertraline 100 MG Tablet 200 MG PO (06:00)
[2021-02-12] MEDS: Senna/Docusate Sodium 1 Tablet PO (06:00)
[2021-02-12] MEDS: APIXABAN 5 MG TABLET PO ×2 (06:00→17:09)
[2021-02-12] MEDS: Furosemide 40 MG Tablet PO (06:00)
[2021-02-12] MEDS: LINAGLIPTIN 5 MG TABLET PO (06:00)
[2021-02-12] MEDS: Metoprolol Tartrate 50 MG Tablet PO ×2 (06:00→18:29)
[2021-02-12] MEDS: Losartan Potassium 50 MG Tablet PO ×2 (06:01→18:29)
[2021-02-12] MEDS: amLODIPine 10 MG Tablet PO (06:01)
[2021-02-12] MEDS: Acetaminophen 500 MG Tablet 1000 MG PO (06:01)
[2021-02-12] MEDS: Tolterodine Tartrate 4 MG CAP.SA PO (06:01)
[2021-02-12] MEDS: Menthol/Lanolin/Calamine/Znox 113 GM Tube 1 APPLIC TOPICAL ×2 (06:08→21:49)
[2021-02-12 06:26] LABS: Bedside Glucose 94 mg/dL (70-110)
[2021-02-12] MEDS: metFORMIN HCl 1,000 MG Tablet 1000 MG PO ×2 (07:54→17:09)
[2021-02-12] MEDS: Ferrous Sulfate 325 MG Tablet PO (07:54)
[2021-02-12] MEDS: Glimepiride 2 MG Tablet PO ×2 (07:54→17:09)
[2021-02-12] MEDS: Nystatin Powder 15gm Bottle 1 APPLIC TOPICAL ×2 (07:57→17:12)
[2021-02-12 11:00] LABS: Bedside Glucose 177 mg/dL (70-110)
[2021-02-12 13:48] VITALS: BP 94/64; PULSE 86; RESP 18; TEMP 36; O2SAT 94
[2021-02-12 16:25] LABS: Bedside Glucose 172 mg/dL (70-110)
[2021-02-12 18:29] VITALS: BP 142/71; PULSE 89
[2021-02-12 21:25] LABS: Bedside Glucose 181 mg/dL (70-110)
[2021-02-12] MEDS: Atorvastatin Calcium 10 MG Tablet PO (21:49)
[2021-02-12] MEDS: LORazepam 0.5 MG Tablet PO (23:52)
[2021-02-13 06:19] VITALS: BP 138/70; PULSE 77; RESP 20; TEMP 37.6; O2SAT 96
[2021-02-13 06:25] LABS: Bedside Glucose 90 mg/dL (70-110)
[2021-02-13 06:27] VITALS: BP 138/70; PULSE 77
[2021-02-13] MEDS: amLODIPine 10 MG Tablet PO (06:27)
[2021-02-13] MEDS: Metoprolol Tartrate 50 MG Tablet PO ×2 (06:27→17:07)
[2021-02-13] MEDS: Tolterodine Tartrate 4 MG CAP.SA PO (06:27)
[2021-02-13] MEDS: APIXABAN 5 MG TABLET PO ×2 (06:28→17:06)
[2021-02-13] MEDS: Furosemide 40 MG Tablet PO (06:28)
[2021-02-13] MEDS: Sertraline 100 MG Tablet 200 MG PO (06:28)
[2021-02-13] MEDS: LINAGLIPTIN 5 MG TABLET PO (06:28)
[2021-02-13] MEDS: Losartan Potassium 50 MG Tablet PO ×2 (06:28→17:07)
[2021-02-13] MEDS: Nystatin Powder 15gm Bottle 1 APPLIC TOPICAL ×2 (06:30→17:12)
[2021-02-13] MEDS: Menthol/Lanolin/Calamine/Znox 113 GM Tube 1 APPLIC TOPICAL ×2 (06:30→21:59)
[2021-02-13] MEDS: Glimepiride 2 MG Tablet PO ×2 (08:10→17:06)
[2021-02-13] MEDS: metFORMIN HCl 1,000 MG Tablet 1000 MG PO ×2 (08:10→17:06)
[2021-02-13] MEDS: Ferrous Sulfate 325 MG Tablet PO (08:11)
[2021-02-13 11:11] LABS: Bedside Glucose 272 mg/dL (70-110)
[2021-02-13 14:19] VITALS: BP 120/68; PULSE 85; RESP 16; TEMP 36.1; O2SAT 95
[2021-02-13 16:40] LABS: Bedside Glucose 78 mg/dL (70-110)
[2021-02-13 17:07] VITALS: PULSE 86
[2021-02-13 21:26] LABS: Bedside Glucose 162 mg/dL (70-110)
[2021-02-13] MEDS: Atorvastatin Calcium 10 MG Tablet PO (21:39)
[2021-02-13] MEDS: LORazepam 0.5 MG Tablet PO (21:40)
[2021-02-14] MEDS: Sertraline 100 MG Tablet 200 MG PO (05:58)
[2021-02-14] MEDS: amLODIPine 10 MG Tablet PO (05:59)
[2021-02-14] MEDS: Tolterodine Tartrate 4 MG CAP.SA PO (05:59)
[2021-02-14] MEDS: Losartan Potassium 50 MG Tablet PO ×2 (05:59→17:50)
[2021-02-14] MEDS: APIXABAN 5 MG TABLET PO ×2 (05:59→17:48)
[2021-02-14] MEDS: Nystatin Powder 15gm Bottle 1 APPLIC TOPICAL ×2 (05:59→20:58)
[2021-02-14 06:00] VITALS: BP 143/76; PULSE 71
[2021-02-14] MEDS: Furosemide 40 MG Tablet PO (06:00)
[2021-02-14] MEDS: LINAGLIPTIN 5 MG TABLET PO (06:00)
[2021-02-14] MEDS: Metoprolol Tartrate 50 MG Tablet PO ×2 (06:00→17:49)
[2021-02-14] MEDS: Menthol/Lanolin/Calamine/Znox 113 GM Tube 1 APPLIC TOPICAL ×2 (06:01→20:57)
[2021-02-14 06:30] LABS: Bedside Glucose 95 mg/dL (70-110)
[2021-02-14] MEDS: Glimepiride 2 MG Tablet PO ×2 (08:44→17:48)
[2021-02-14] MEDS: metFORMIN HCl 1,000 MG Tablet 1000 MG PO ×2 (08:45→17:49)
[2021-02-14] MEDS: Ferrous Sulfate 325 MG Tablet PO (08:45)
[2021-02-14 10:56] LABS: Bedside Glucose 261 mg/dL (70-110)
[2021-02-14 15:51] VITALS: BP 119/68; PULSE 82; RESP 18; TEMP 36.4; O2SAT 96
[2021-02-14 16:06] LABS: Bedside Glucose 102 mg/dL (70-110)
[2021-02-14 17:49] VITALS: BP 119/68; PULSE 82
[2021-02-14] MEDS: Senna/Docusate Sodium 1 Tablet PO (17:50)
[2021-02-14] MEDS: LORazepam 0.5 MG Tablet PO (20:56)
[2021-02-14] MEDS: Atorvastatin Calcium 10 MG Tablet PO (20:57)
[2021-02-14 22:01] LABS: Bedside Glucose 142 mg/dL (70-110)
[2021-02-15 06:22] VITALS: BP 152/81; PULSE 74
[2021-02-15] MEDS: Sertraline 100 MG Tablet 200 MG PO (06:23)
[2021-02-15] MEDS: LINAGLIPTIN 5 MG TABLET PO (06:23)
[2021-02-15 06:24] VITALS: BP 152/81; PULSE 74
[2021-02-15] MEDS: Losartan Potassium 50 MG Tablet PO ×2 (06:24→17:49)
[2021-02-15] MEDS: Metoprolol Tartrate 50 MG Tablet PO ×2 (06:24→17:50)
[2021-02-15] MEDS: Tolterodine Tartrate 4 MG CAP.SA PO (06:24)
[2021-02-15] MEDS: Furosemide 40 MG Tablet PO (06:24)
[2021-02-15] MEDS: APIXABAN 5 MG TABLET PO ×2 (06:24→17:50)
[2021-02-15] MEDS: amLODIPine 10 MG Tablet PO (06:24)
[2021-02-15 06:31] LABS: Bedside Glucose 72 mg/dL (70-110)
[2021-02-15] MEDS: Menthol/Lanolin/Calamine/Znox 113 GM Tube 1 APPLIC TOPICAL ×2 (06:33→22:02)
[2021-02-15] MEDS: Nystatin Powder 15gm Bottle 1 APPLIC TOPICAL ×2 (06:34→22:02)
[2021-02-15] MEDS: Acetaminophen 500 MG Tablet 1000 MG PO (08:48)
[2021-02-15] MEDS: Ferrous Sulfate 325 MG Tablet PO (08:49)
[2021-02-15] MEDS: metFORMIN HCl 1,000 MG Tablet 1000 MG PO ×2 (08:49→17:49)
[2021-02-15] MEDS: Glimepiride 2 MG Tablet PO ×2 (08:49→17:49)
[2021-02-15 09:50] VITALS: PULSE 83; RESP 18; O2SAT 92
[2021-02-15 11:06] LABS: Bedside Glucose 162 mg/dL (70-110)
[2021-02-15 16:35] VITALS: BP 125/59; PULSE 84; RESP 17; TEMP 37; O2SAT 97
[2021-02-15 16:36] LABS: Bedside Glucose 132 mg/dL (70-110)
[2021-02-15 17:50] VITALS: BP 125/59; PULSE 84
[2021-02-15 21:30] LABS: Bedside Glucose 175 mg/dL (70-110)
[2021-02-15] MEDS: Atorvastatin Calcium 10 MG Tablet PO (21:59)
[2021-02-15] MEDS: LORazepam 0.5 MG Tablet PO (22:01)
[2021-02-16] MEDS: Menthol/Lanolin/Calamine/Znox 113 GM Tube 1 APPLIC TOPICAL ×2 (06:14→21:45)
[2021-02-16] MEDS: Nystatin Powder 15gm Bottle 1 APPLIC TOPICAL ×2 (06:14→17:09)
[2021-02-16 06:15] VITALS: BP 136/81; PULSE 79
[2021-02-16] MEDS: Metoprolol Tartrate 50 MG Tablet PO ×2 (06:15→17:08)
[2021-02-16] MEDS: Tolterodine Tartrate 4 MG CAP.SA PO (06:15)
[2021-02-16] MEDS: Furosemide 40 MG Tablet PO (06:15)
[2021-02-16] MEDS: amLODIPine 10 MG Tablet PO (06:15)
[2021-02-16] MEDS: APIXABAN 5 MG TABLET PO ×2 (06:15→17:09)
[2021-02-16] MEDS: Losartan Potassium 50 MG Tablet PO ×2 (06:15→17:10)
[2021-02-16] MEDS: LINAGLIPTIN 5 MG TABLET PO (06:19)
[2021-02-16] MEDS: Sertraline 100 MG Tablet 200 MG PO (06:29)
[2021-02-16 06:50] LABS: Bedside Glucose 73 mg/dL (70-110)
[2021-02-16] MEDS: Glimepiride 2 MG Tablet PO ×2 (08:01→17:08)
[2021-02-16] MEDS: Ferrous Sulfate 325 MG Tablet PO (08:01)
[2021-02-16] MEDS: metFORMIN HCl 1,000 MG Tablet 1000 MG PO ×2 (08:01→17:11)
--- NOTE | 2021-02-16 09:30 | NURSING ---
Pt leaving with physicians at this time for doctor appointment
--- NOTE | 2021-02-16 12:15 | NURSING ---
pt returned from appt with orders, ok to remove brace RT Knee, ROM as tolerated WBAT. RT elbow- NWB, splint reapplied. plan for surgery when pt decides
[2021-02-16 12:55] LABS: Bedside Glucose 122 mg/dL (70-110)
[2021-02-16 14:22] VITALS: BP 124/70; PULSE 77; RESP 16; TEMP 36.1; O2SAT 97
[2021-02-16 17:08] VITALS: PULSE 77
[2021-02-16] MEDS: Atorvastatin Calcium 10 MG Tablet PO (21:43)
[2021-02-16] MEDS: oxyCODONE 5 MG Tablet PO (21:43)
[2021-02-16] MEDS: LORazepam 0.5 MG Tablet PO (21:43)
[2021-02-16 22:00] VITALS: PULSE 130; RESP 18; O2SAT 95
[2021-02-17 01:01] LABS: Bedside Glucose 104 mg/dL (70-110)
[2021-02-17 05:56] VITALS: BP 121/71; PULSE 77
[2021-02-17] MEDS: Losartan Potassium 50 MG Tablet PO ×2 (05:56→17:46)
[2021-02-17] MEDS: Sertraline 100 MG Tablet 200 MG PO (05:56)
[2021-02-17] MEDS: APIXABAN 5 MG TABLET PO ×2 (05:56→17:46)
[2021-02-17] MEDS: Tolterodine Tartrate 4 MG CAP.SA PO (05:56)
[2021-02-17] MEDS: LINAGLIPTIN 5 MG TABLET PO (05:56)
[2021-02-17] MEDS: Furosemide 40 MG Tablet PO (05:56)
[2021-02-17] MEDS: amLODIPine 10 MG Tablet PO (05:56)
[2021-02-17] MEDS: Metoprolol Tartrate 50 MG Tablet PO ×2 (05:56→17:47)
[2021-02-17 05:59] VITALS: BP 121/71; PULSE 77; RESP 16; TEMP 36.3; O2SAT 95
[2021-02-17 06:31] LABS: Bedside Glucose 93 mg/dL (70-110)
[2021-02-17] MEDS: Glimepiride 2 MG Tablet PO ×2 (08:39→17:47)
[2021-02-17] MEDS: Ferrous Sulfate 325 MG Tablet PO (08:39)
[2021-02-17] MEDS: metFORMIN HCl 1,000 MG Tablet 1000 MG PO ×2 (08:40→17:47)
[2021-02-17 11:30] VITALS: PULSE 82; RESP 18; O2SAT 96
--- NOTE | 2021-02-17 15:42 | CASEMGMT ---
Conductiv Work Insurance issued a letter of Non coverage with LCD 02/19 and discharge 02/20. Pt informed and agreeable to d/c on 02/20 and states her sister Kim will be flying in and will stay with her for a week. Pt also has an ortho appointment on 02/20 and pt believes she will find out at that appointment when surgery for elbow is scheduled. Pt is under the impression it will be early next week. Pt stating she would like to return to TCU after surgery for continued therapy. SW explained need for new referral and precert after surgery. With pt permission, phone call to pt sister Kim and updated on discharge plan. Kim agreeable and states she will pick pt up on Tuesday morning for discharge home and can stay for 1 week. SW will continue to follow for d/c planning. Discharge Dispostion: home with sister providing assitance until surgery next week MARGOT Gayle
[2021-02-17 16:00] VITALS: BP 144/83; PULSE 85
[2021-02-17 17:47] VITALS: BP 144/83; PULSE 85
--- NOTE | 2021-02-17 20:08 | PCM.DC.SUM ---
Providers Date of Admission: 01/27/21 Primary Care Physician: Dr. Sulma Reagan MD Reason For Visit: DEBILITY AND FALLS Diagnosis Discharge Diagnosis (1) Debility: Status: Acute Code(s): R53.81 - Other malaise (2) Fall: Status: Acute Code(s): W19.XXXA - Unspecified fall, initial encounter Qualifiers: Encounter type: subsequent encounter Qualified Code(s): W19.XXXD - Unspecified fall, subsequent encounter (3) Closed fracture of right elbow: Status: Acute Code(s): S42.401A - Unspecified fracture of lower end of right humerus, initial encounter for closed fracture (4) Insomnia: Status: Acute Code(s): G47.00 - Insomnia, unspecified (5) Atrial fibrillation: Status: Acute Code(s): I48.91 - Unspecified atrial fibrillation (6) Hypertension: Status: Chronic Code(s): I10 - Essential (primary) hypertension (7) Edema: Status: Acute Code(s): R60.9 - Edema, unspecified (8) Diabetes mellitus: Status: Acute Code(s): E11.9 - Type 2 diabetes mellitus without complications (9) Hyperlipidemia: Status: Acute Code(s): E78.5 - Hyperlipidemia, unspecified (10) Overactive bladder: Status: Acute Code(s): N32.81 - Overactive bladder (11) Iron deficiency anemia: Status: Acute Code(s): D50.9 - Iron deficiency anemia, unspecified (12) Depression: Status: Acute Code(s): F32.9 - Major depressive disorder, single episode, unspecified Medications at Discharge Home Medications melatonin 10 mg capsule 10 mg PO HS PRN 07/07/20 apixaban 5 mg tablet 5 mg PO BID #180 tab 10/20/20 amlodipine 10 mg tablet 10 mg PO DAILY #90 tab 12/01/20 losartan 50 mg tablet 50 mg PO BID #180 tab 12/01/20 simvastatin 20 mg tablet 20 mg PO QHS #90 tab 12/01/20 glimepiride 2 mg tablet 2 mg PO BID #180 tab 12/12/20 metoprolol tartrate 50 mg tablet 50 mg PO BID #60 tab 12/12/20 oxybutynin chloride 15 mg tablet,extended release 24 hr 15 mg PO DAILY #90 tab 01/22/21 sertraline [Zoloft] 200 mg PO DAILY 01/26/21 Januvia 100 mg PO DAILY 01/27/21 ferrous sulfate 325 mg PO DAILY 01/27/21 furosemide 40 mg PO DAILY 01/27/21 metformin 1,000 mg PO BID 01/27/21 acetaminophen 1,000 mg PO Q6H PRN PRN #0 tab 02/17/21 lorazepam 0.5 mg PO Q6H PRN PRN 7 Days #28 tab 02/17/21 oxycodone 5 mg PO Q4H PRN PRN 7 Days #42 tab 02/17/21 polyethylene glycol 3350 [HealthyLax] 17 g PO DAILY 30 Days #30 ea 02/17/21 sennosides-docusate sodium [Stool Softener-Stimulant Laxat] 1 tab PO BID 30 Days #60 tab 02/17/21 Hospital Course Operations None Procedures None Summary of Care Provided Minutes Spent on Discharge: 35 Hospital Course: 71 year old female with below past medical history hospitalized for fall, right elbow fracture, admitted to TCU with debility, here for rehabilitation, strengthening, prior to discharge home alone. Discharge home 02/20/2021 with sister Kim providing assistance until surgery next week. Physical Exam Const alert and oriented x3 General Appearance: cooperative HEENT normocephalic Eyes PERRL and EOMs intact bilaterally Neck supple, no JVD and no carotid bruits Resp normal respiratory effort, normal air movement and clear to auscultation bilaterally Cardio regular rate and regular rhythm GI normal to inspection, nondistended, normoactive bowel sounds, non-tender and non-distended Extremity normal capillary refill General Extremity: Negative for edema Skin no rashes or lesions noted General Skin Exam: no breakdown Psych affect normal Appearance: appropriate Weight / BMI Weight Weight: 96.751 kg Body Mass Index (BMI) 39.2 ABG / Lab / Microbiology Data Result Diagrams: 02/11/21 05:19 02/11/21 05:19 Laboratory: Laboratory Results - last 24 hr 02/16/21 16:29: POC Glucose 104 02/17/21 06:28: POC Glucose 93 D/C Instructions Discharge Diet: No restrictions Discharge Activity: Return to Normal Activity, May Shower and Use Walker Weight Bearing Status: Weight bearing as tolerated (Right lower extremity.) and No weight bearing (Right upper extremity.) Call your doctor if you observe: Fever of 101 or Higher, Inability to urinate, Inability to have a bowel movement, Shortness of breath, Dizziness, Fainting spells, Swelling in the ankles, Chest pain and Uncontrolled pain Additional Instructions: Discharge home 02/20/2021 with sister Kim providing assistance until surgery next week. Please Follow Up With: Micky Guy DO When: As scheduled. Meaningful Use Info Meaningful Use Diagnoses (Choose all that apply): None applicable Discharge Plan Admission Admit Date/Time: 01/27/21 16:20 Primary Reason for Your Visit: Debility. Attending Provider: Mg Ramirez Chi Primary Care Provider: Sulma Reagan Instructions Additional Instructions / Restrictions: Discharge home 02/20/2021 with sister Kim providing assistance until surgery next week. Discharge Orders/Prescriptions Prescriptions: New polyethylene glycol 3350 [HealthyLax] 17 gram Powder In Packet 17 g PO DAILY 30 Days Qty: 30 RF: 0 sennosides-docusate sodium [Stool Softener-Stimulant Laxat] 8.6-50 mg Tablet 1 tab PO BID 30 Days Qty: 60 RF: 0 acetaminophen 500 mg Tablet 1,000 mg PO Q6H PRN PRN (Reason: Pain Score 1-3) Qty: 0 RF: 0 lorazepam 0.5 mg Tablet 0.5 mg PO Q6H PRN PRN (Reason: Anxiety) 7 Days Qty: 28 RF: 0 oxycodone 5 mg Tablet 5 mg PO Q4H PRN PRN (Reason: Pain Score 4-10) 7 Days Qty: 42 RF: 0 Continued melatonin 10 mg capsule 10 mg PO HS PRN (Reason: Sleep) RF: 0 sertraline [Zoloft] 100 mg tablet 200 mg PO DAILY RF: 0 furosemide 40 mg tablet 40 mg PO DAILY RF: 0 ferrous sulfate 325 mg (65 mg iron) tablet 325 mg PO DAILY RF: 0 metformin 1,000 mg tablet 1,000 mg PO BID RF: 0 Januvia 100 mg tablet 100 mg PO DAILY RF: 0 apixaban 5 mg tablet 5 mg PO BID Qty: 180 RF: 3 amlodipine 10 mg tablet 10 mg PO DAILY Qty: 90 RF: 3 losartan 50 mg tablet 50 mg PO BID Qty: 180 RF: 3 simvastatin 20 mg tablet 20 mg PO QHS Qty: 90 RF: 3 metoprolol tartrate 50 mg tablet 50 mg PO BID Qty: 60 RF: 1 glimepiride 2 mg tablet 2 mg PO BID Qty: 180 RF: 3 oxybutynin chloride 15 mg tablet extended release 24hr 15 mg PO DAILY Qty: 90 RF: 1 Discontinued acetaminophen [Tylenol] 325 mg Tablet 650 mg PO Q6H PRN PRN (Reason: Pain Score 1-10/Temp > 100.7 F) 7 Days Qty: 20 RF: 0 Referrals / Follow Up: Sulma Reagan MD [Primary Care Provider] - Disposition Disposition (needs filled in before D/C Order can be placed): Home, Self Care
[2021-02-17] MEDS: Nystatin Powder 15gm Bottle 1 APPLIC TOPICAL (22:11)
[2021-02-17] MEDS: Menthol/Lanolin/Calamine/Znox 113 GM Tube 1 APPLIC TOPICAL (22:11)
[2021-02-17] MEDS: Atorvastatin Calcium 10 MG Tablet PO (22:12)
[2021-02-17] MEDS: LORazepam 0.5 MG Tablet PO (22:13)
[2021-02-17] MEDS: Acetaminophen 500 MG Tablet 1000 MG PO (22:14)
[2021-02-18] MEDS: Tolterodine Tartrate 4 MG CAP.SA PO (05:19)
[2021-02-18] MEDS: Losartan Potassium 50 MG Tablet PO ×2 (05:19→17:30)
[2021-02-18] MEDS: amLODIPine 10 MG Tablet PO (05:19)
[2021-02-18] MEDS: Furosemide 40 MG Tablet PO (05:19)
[2021-02-18] MEDS: Sertraline 100 MG Tablet 200 MG PO (05:19)
[2021-02-18] MEDS: Nystatin Powder 15gm Bottle 1 APPLIC TOPICAL ×2 (05:20→21:24)
[2021-02-18] MEDS: Menthol/Lanolin/Calamine/Znox 113 GM Tube 1 APPLIC TOPICAL ×2 (05:20→21:24)
[2021-02-18] MEDS: LINAGLIPTIN 5 MG TABLET PO (05:20)
[2021-02-18] MEDS: APIXABAN 5 MG TABLET PO ×2 (05:20→17:30)
[2021-02-18 05:24] VITALS: BP 156/74; PULSE 72
[2021-02-18] MEDS: Metoprolol Tartrate 50 MG Tablet PO ×2 (05:24→17:30)
[2021-02-18 05:46] LABS: Absolute Lymphocyte Count 1.64 X10^3/uL (0.83-4.51); Absolute Neutrophil Count 5.3 X10^3/uL (2.0-7.7); Basophil# 0.03 X10^3/uL; Basophil% 0.4 % (0-1); Eosinophil# 0.36 X10^3/uL; Eosinophils% 4.6 % (0-5); Hematocrit 29.6 % (37-47); Hemoglobin 9.4 g/dL (12.0-15.0); Lymphocyte # 1.64 X10^3/ul (0.83-4.51); Lymphocyte % 20.8 % (19-41); Mean Corp Hgb Conc 31.8 g/dL (32-36); Mean Corpuscular Hgb 27.6 pg (27.0-32.0); Mean Corpuscular Volume 86.8 fL (81-99); Mean Platelet Vol. 10.2 fl (6.2-12.0); Monocyte# 0.54 X10^3/uL; Monocyte% 6.8 % (0-10); NRBC Flagged by Analyzer 0 % (0-5); Platelet Count 241 K/mm3 (150-450); RBC Distribution Width CV 14.5 % (11.6-14.6); Red Blood Count 3.41 M/mm3 (4.2-5.4); White Blood Count 7.9 K/mm3 (4.4-11.0)
[2021-02-18 06:24] LABS: Anion Gap 7 (5-15); BUN 45 mg/dL (7-18); BUN/Creat Ratio 34.9 RATIO (10-20); Calcium,Total 9.3 mg/dL (8.5-10.1); Chloride 107 mmol/L (98-107); Creatinine, Serum 1.29 mg/dL (0.55-1.02); EST Glomerular Filtration Rate 44 mL/min (>60); Est Glom Filt Rate - Afr Amer 53 mL/min (>60); Estimated Creatinine Clearance 31.06 ml/min; Glucose 87 mg/dL (74-106); Sodium Level 142 mmol/L (136-145)
[2021-02-18 06:25] LABS: Bedside Glucose 83 mg/dL (70-110)
[2021-02-18] MEDS: metFORMIN HCl 1,000 MG Tablet 1000 MG PO ×2 (08:11→17:30)
[2021-02-18] MEDS: Ferrous Sulfate 325 MG Tablet PO (08:11)
[2021-02-18] MEDS: Glimepiride 2 MG Tablet PO ×2 (08:11→17:32)
--- NOTE | 2021-02-18 12:03 | CASEMGMT ---
Social Work Spoke with sister Kim to confirm DC plans. Sister agrees to not schedule HHC if pt is going to have surgery Mon/. Sister requesting w/c [place] [facility] [place] to [place] and then home. Contacted [facility] to cancel transport. Plan: DC home with sister 02/20, Shlomo - w/c [facility] Govea[facility]
[2021-02-18] MEDS: Acetaminophen 500 MG Tablet 1000 MG PO ×2 (14:11→21:23)
[2021-02-18 16:00] VITALS: BP 113/57; PULSE 73; RESP 15; TEMP 36.8; O2SAT 92
[2021-02-18 17:30] VITALS: BP 113/57; PULSE 73
[2021-02-18] MEDS: Atorvastatin Calcium 10 MG Tablet PO (21:21)
[2021-02-18] MEDS: LORazepam 0.5 MG Tablet PO (21:23)
[2021-02-19] MEDS: Losartan Potassium 50 MG Tablet PO ×2 (06:09→17:15)
[2021-02-19] MEDS: LINAGLIPTIN 5 MG TABLET PO (06:09)
[2021-02-19] MEDS: Tolterodine Tartrate 4 MG CAP.SA PO (06:09)
[2021-02-19] MEDS: APIXABAN 5 MG TABLET PO ×2 (06:09→17:15)
[2021-02-19] MEDS: Furosemide 40 MG Tablet PO (06:09)
[2021-02-19] MEDS: amLODIPine 10 MG Tablet PO (06:09)
[2021-02-19] MEDS: Nystatin Powder 15gm Bottle 1 APPLIC TOPICAL ×2 (06:10→17:16)
[2021-02-19] MEDS: Menthol/Lanolin/Calamine/Znox 113 GM Tube 1 APPLIC TOPICAL ×2 (06:10→20:57)
[2021-02-19] MEDS: Sertraline 100 MG Tablet 200 MG PO (06:12)
[2021-02-19 06:14] VITALS: BP 151/82; PULSE 67
[2021-02-19] MEDS: Metoprolol Tartrate 50 MG Tablet PO ×2 (06:14→17:17)
[2021-02-19 06:21] LABS: Bedside Glucose 67 mg/dL (70-110)
--- NOTE | 2021-02-19 06:29 | NURSING ---
Pt AM blood sugar 67. Pt requested to have some orange juice and has snacks in room. RN aware.
[2021-02-19] MEDS: metFORMIN HCl 1,000 MG Tablet 1000 MG PO ×2 (08:41→17:16)
[2021-02-19] MEDS: Ferrous Sulfate 325 MG Tablet PO (08:41)
[2021-02-19] MEDS: Glimepiride 1 MG Tablet PO ×3 (09:36→17:15)
[2021-02-19 13:11] VITALS: BP 114/61; PULSE 79; RESP 18; TEMP 36.7; O2SAT 93
--- NOTE | 2021-02-19 16:40 | CASEMGMT ---
Social Work Received email from sister Nakul that sister Kim is concerned about being able to care for pt at home d/t to recent medical dx received. Contacted sister Kim to inquire about concerns because when this worker spoke to her the day prior, no concerns were stated. Kim confirmed concerns d/t medical dx and unsure if pt would be safe at home. Explained unfortunately, pt must DC tomorrow and there is not enough time to get pt placed in a SNF because pt cannot pay privately and would need to see if pt would be approved for [facility]. Offered pt will only be home for a few days since she is returning for surgery, and pt does not need heavy physical assistance - only slight assistance getting in and out of bed, but pt states she can sleep in a recliner if needed, assistance with putting on socks/shoes, feeding and toileting hygiene - all things sister should be able to assist with. Therapy does not have any concerns about pt transferring in and out of a car either. Sister agreed. Encouraged to both sisters to take the time at home with pt to discuss alternative plans after surgery, like completing [facility] application and choosing SNFs to DC to since sisters are no longer able to assist pt at home from what they previously stated upon admission. Sister's agreed. OT left message with Kim in efforts to provide verbal teaching, but no return call made to OT. Met with patient to explain above information as she became worried too. Provided SNF list and [facility] application. Offered to submit application once it is completed. Sister Kim in to visit [facility] and encouraged pt to have her and aide show sister the tasks she needs to assistance with and how to do them. Pt agrees. After conversation, pt feels calmer and more confident in going home for short period. Pt appreciative. Parul Haq, [facility] FLAME CUTTING MACHINE OPERATOR
[2021-02-19 17:17] VITALS: PULSE 79
[2021-02-19] MEDS: Atorvastatin Calcium 10 MG Tablet PO (20:54)
[2021-02-19] MEDS: LORazepam 0.5 MG Tablet PO (20:56)
[2021-02-20] MEDS: APIXABAN 5 MG TABLET PO (05:37)
[2021-02-20] MEDS: Losartan Potassium 50 MG Tablet PO (05:37)
[2021-02-20] MEDS: LINAGLIPTIN 5 MG TABLET PO (05:37)
[2021-02-20 05:38] VITALS: BP 153/85; PULSE 76
[2021-02-20] MEDS: amLODIPine 10 MG Tablet PO (05:38)
[2021-02-20] MEDS: Tolterodine Tartrate 4 MG CAP.SA PO (05:38)
[2021-02-20] MEDS: Furosemide 40 MG Tablet PO (05:38)
[2021-02-20] MEDS: Metoprolol Tartrate 50 MG Tablet PO (05:38)
[2021-02-20] MEDS: Sertraline 100 MG Tablet 200 MG PO (05:38)
[2021-02-20] MEDS: Menthol/Lanolin/Calamine/Znox 113 GM Tube 1 APPLIC TOPICAL (05:43)
[2021-02-20] MEDS: Nystatin Powder 15gm Bottle 1 APPLIC TOPICAL (05:51)
[2021-02-20 06:20] LABS: Bedside Glucose 84 mg/dL (70-110)
[2021-02-20] MEDS: metFORMIN HCl 1,000 MG Tablet 1000 MG PO (07:59)
[2021-02-20] MEDS: Glimepiride 1 MG Tablet PO (07:59)
[2021-02-20] MEDS: Ferrous Sulfate 325 MG Tablet PO (07:59)
[2021-02-20 11:17] VITALS: PULSE 71; RESP 18; O2SAT 95
[2021-02-20 14:00] VITALS: BP 118/61; PULSE 72; RESP 18; TEMP 36.8; O2SAT 95
[2021-02-20 17:11] VITALS: BP 118/61; PULSE 72; RESP 18; TEMP 36.8; O2SAT 95
[2021-02-20 17:12] VITALS: BP 118/61; PULSE 72; RESP 18; TEMP 36.8; O2SAT 95
--- NOTE | 2021-02-24 08:15 | CASEMGMT ---
Addendum entered by Daphne Galindo 02/24/21 14:31: SW received a message from Isaura Browning with S inquiring where pt is going after surgery. SW called her back and left a message stating we are not certain, will need to address this once pt is here, asked her to call back with the pending Medicaid number. Isaura's number is [phone]. LONG Alfaro Original Note: Pt's sister Kim Mota called in to TCU, as she is concerned about pt coming in for surgery on the and pt's discharge plan after. She states they had completed a Medicaid application and had spoken about assisted living. Pt's sister is here from out of town but has to go home to [place] on Tuesday. SW reassured pt's sister that SW on the acute side will follow up w/pt after surgery to work on discharge plans. LONG Alfaro
== END 2021-02-20 14:30 | disposition home or self-care (01) | DRG 561 ==
PROVIDERS: Admitting Provider Family Medicine Geriatric Medicine; PCP Internal Medicine; Visit Provider Family Medicine Geriatric Medicine
DX: S82.001D Unspecified fracture of right patella, subsequent encounter for closed fracture with routine healing (principal); S42.401D Unspecified fracture of lower end of right humerus, subsequent encounter for fracture with routine healing; W19.XXXD Unspecified fall, subsequent encounter; I10 Essential (primary) hypertension; E11.9 Type 2 diabetes mellitus without complications; I48.0 Paroxysmal atrial fibrillation; E78.5 Hyperlipidemia, unspecified; F41.9 Anxiety disorder, unspecified; F32.9 Major depressive disorder, single episode, unspecified; M19.90 Unspecified osteoarthritis, unspecified site; G47.30 Sleep apnea, unspecified; D50.9 Iron deficiency anemia, unspecified; N32.81 Overactive bladder; Z79.01 Long term (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; Z79.899 Other long term (current) drug therapy; Z79.84 Long term (current) use of oral hypoglycemic drugs; Z87.891 Personal history of nicotine dependence
CPT/HCPCS: 36415; 80048; 82962; 85025; 97110; 97116; 97162; 97166; 97530; 97535; 97802

== ENCOUNTER 2021-02-26 18:42 | Observation (INO) | payer MEDICARE, SELFPAY ==
[2021-02-26] VITALS (15 sets, daily range): BP systolic 145–172; BP diastolic 77–98; PULSE 73–90; RESP 16–20; TEMP 36.3–36.6; O2SAT 85–96; BMI 39.7
[2021-02-26] MEDS: Lactated Ringers 1,000 ML 100 ML IV (13:10)
[2021-02-26 13:20] LABS: Bedside Glucose 116 mg/dL (70-110)
[2021-02-26 13:23] LABS: Hematocrit 32.9 % (37-47); Hemoglobin 10.4 g/dL (12.0-15.0); Mean Corp Hgb Conc 31.6 g/dL (32-36); Mean Corpuscular Hgb 27.6 pg (27.0-32.0); Mean Corpuscular Volume 87.3 fL (81-99); Mean Platelet Vol. 9.5 fl (6.2-12.0); Platelet Count 271 K/mm3 (150-450); RBC Distribution Width CV 14.5 % (11.6-14.6); RBC Distribution Width SD 46.3 fl (35.1-43.9); Red Blood Count 3.77 M/mm3 (4.2-5.4); White Blood Count 7.6 K/mm3 (4.4-11.0)
[2021-02-26 13:40] LABS: Hemoglobin A1c 6.3 % (3.8-5.6)
--- NOTE | 2021-02-26 14:00 | RAD_ITS ---
INDICATION: ORIF, DISTAL HUMERUS FX EXAMINATION/TECHNIQUE: X-RAY - RIGHT XR Elbow 2 Views COMPARISON: No prior elbow imaging. FINDINGS: 3 intraoperative fluoroscopic images of the elbow show internal fixation plates overlying the medial lateral condyles. A few tiny ossific fragments are seen anterior to the elbow joint on the lateral view. These are somewhat rounded in morphology suggesting ossifications unassociated with fracture. There is normal radiocapitellar and ulnar trochlear alignment. RAD/Elbow 2 Views IMPRESSION: Intraoperative fluoroscopic images right elbow as above. Electronically Signed: Royer Lopez DO at 21:48 EDT Tel , Service support ,
[2021-02-26] MEDS: Cefazolin 2 GM in 0.9% Normal Saline 100 ML IV (15:51)
[2021-02-26] MEDS: Bupivacaine Mpf 0.5% 30 ML VIAL (17:00)
--- NOTE | 2021-02-26 19:15 | PCM.OPRPT ---
Problems Associated Problem List Diagnoses (1) Fracture of lower end of right humerus: Report of Operation Date of Procedure: 02/26/21 Description of Surgical Findings:: Preoperative diagnosis: Displaced right extra-articular distal humerus fracture Postoperative diagnosis: Displaced right extra-articular distal humerus fracture Procedure: Open reduction internal fixation extra-articular right distal humerus fracture Surgeon: Micky Guy DO Hydrographic Engineer: Ramona Craig PA-C Anesthesia: General endotracheal Anesthesiologist: Dr. Sharma Complications: None Drains: None Estimated blood loss: 100 cc Urinary output: None IV fluids: Per anesthesia record Specimens: None Surgical implants: Andrez VariAx posterior lateral plate 3 hole, distal medial plate 4-hole Surgical indications: This is a 71-year-old female who sustained a fall approximately 1 month ago. She sustained a distal humerus fracture to her right elbow and a nondisplaced patella fracture. The distal humerus fracture was nondisplaced upon my initial evaluation in the office. We discussed operative versus nonoperative care at that time. We mutually with shared decision making decided upon a trial of long-arm casting for 3 weeks. The cast was subsequently removed and there was gross motion at the fracture site. She had persistent pain. We discussed operative intervention at that time. The risks, benefits, the tenderness to a open reduction internal fixation of the right distal humerus were reviewed with the patient at length. She agreed to proceed. The risks included but were not limited to bleeding, infection, loss of life or limb, neurovascular injury, DVT or PE, CVA, stiffness, need for additional surgery, malunion or nonunion, risk of anesthesia. Patient expressed understanding of these risks and wished to proceed. Description of procedure: Patient was seen in preoperative holding area. She was identified by name, medical record number, date of . The operative extremity was marked with a surgical marker. We confirmed informed consent with the patient and all questions were answered to her satisfaction. At time of her procedure, patient was brought to the operative suite and positioned supine on a standard operating table with all bony prominences well-padded. General anesthesia was induced and endotracheal tube placed. After adequate anesthesia and securing the tube, patient was positioned in the lateral decubitus position with the right side up. An axillary roll was placed. Fibular head was free on the left leg. The nonoperative well arm was placed on a arm board and the operative extremity was placed over top of a radiolucent post. The bed was spun 90 degrees to gain access to the extremity. We then prepped and draped the right upper extremity in a normal, sterile orthopedic fashion. We performed a timeout with all parties in attendance in agreement with the side, site, and operation be performed. No concerns were voiced and we elected to proceed. 2 g Ancef was administered prior to incision by the anesthesia staff. I first planned a midline posterior approach centered over the distal humerus curving radially around the olecranon process. Skin was sharply incised with a 10 blade down the level of the triceps fascia. Superficial hemostasis was obtained with Bovie cautery. The triceps fascia was opened. I bluntly elevated the triceps from the distal humerus first on the medial side. Identified the ulnar nerve and performed a cubital tunnel release. A vessel loop was placed around the ulnar nerve. No hemostat or clamp was placed to avoid excessive traction. We temporarily transpose this anteriorly. We identified the fracture site and early callus. Callus was quite soft and was able to be debrided with rongeur. We then turned our attention to the lateral column. We elevated the triceps bluntly from the lateral intermuscular septum. I did identify the radial nerve which was free from the field. A Hohmann retractor was placed around the humerus and to elevate the triceps. We gain access to the lateral column. Callus was again noted and was freed with a combination of a Wise elevator and rongeur. A provisional reduction was performed with pointed reduction clamps. Reduction appeared appropriate and K wires were placed up through both columns. Provisional reduction was confirmed to be appropriate on orthogonal fluoroscopic images. We then selected our plates. I selected a direct medial and posterior lateral plate. A mistake on the back table provided me a direct lateral plate which was subsequently removed and discarded. I first secured both plates of the bone sequentially with cortical screws in the shaft. Fluoroscopy confirmed an appropriate reduction and plate position. I placed locking screws distally in the articular segment of appropriate size and position. We then filled the proximal holes with cortical screws with good purchase. The fracture appeared to move as 1 solid unit. Final fluoroscopic images were obtained and screws that appear to long on fluoroscopy were exchanged for appropriately sized screws. Final fluoroscopic images confirmed appropriately sized hardware positioned hardware. We then copiously irrigated the wound with normal saline. Triceps fascia was closed in running locking fashion with 0 Vicryl suture. Dermal layer was closed with 2-0 Vicryl suture. Skin reapproximated with higinio. A field block was administered with 30 cc 0.5% plain Marcaine. Sterile compression dressing was applied. Patient was safely extubated in the operative suite after she was rolled back onto her hospital bed. She was then subsequently transferred to PACU in stable condition. Intraoperative medications: 30 cc 0.5% plain Marcaine. 2 g Ancef IV prior to incision by anesthesia. Need for skilled assistant printer floor covering: Ramona Craig PA-C was critical to the outcome of the case. During the course of the procedure the physician assistant printer floor covering played a vital role. Her intimate knowledge of my steps in the procedure aided in safe and expedient completion of the procedure. The PA played a vital role in positioning particularly in obtaining the appropriate positioning. The PA was also vital in the retraction of soft tissues during the exposure and projecting vital structures. The PA was also vital and protecting soft tissues during fracture reduction and hardware placement. Post Operative Plan: Weightbearing: Nonweightbearing operative extremity, range of motion as tolerated Antibiotics: Ancef 2 g every 8 hours for 24 hours DVT Prophylaxis: SCDs, early mobilization, restart home Eliquis tomorrow morning Butt: None Dressing: Soft dressing, okay to change on postoperative day #2 or earlier if saturated. Okay to shower on postoperative day #4 if no drainage. X-Rays: 2 weeks postop in the office Disposition: Patient will be placed in observation overnight in the hospital given her multiple medical comorbidities and possible placement as the patient does live alone. Follow-up: 2 weeks post-operatively with me in the office
[2021-02-26 19:16] LABS: Bedside Glucose 146 mg/dL (70-110)
[2021-02-26] MEDS: Ipratropium/Albuterol Sulfate 3 ML AMPUL.NEB INHALATION (20:07)
[2021-02-26 21:56] LABS: Bedside Glucose 213 mg/dL (70-110)
[2021-02-26] MEDS: Losartan Potassium 50 MG Tablet PO (22:38)
[2021-02-26] MEDS: Acetaminophen 500 MG Tablet 1000 MG PO (22:38)
[2021-02-26] MEDS: Metoprolol Tartrate 50 MG Tablet PO (22:38)
--- NOTE | 2021-02-26 22:51 | NURSING ---
Addendum entered by Daina Waite 02/26/21 22:58: Dr. Guy stated hand was bruised and edematous prior to surgery. Original Note: [address] Guy via phone, reported to him pt's hand is edematous, dusky, unable to move any fingers, cap refill is delayed, and radial pulse is weak, not at strong as left. Arm is elevated and has ice applied to elbow area. He said to remove JESSICA wrap, elevate arm above heart and apply warm blanket. This was completed.
--- NOTE | 2021-02-26 22:57 | NURSING ---
Pt now is able to wiggle all fingers and thumb on right hand.
[2021-02-27] VITALS (9 sets, daily range): BP systolic 114–145; BP diastolic 62–81; PULSE 66–84; RESP 16–18; TEMP 36.4–36.9; O2SAT 92–97
[2021-02-27] MEDS: HYDROmorphone 0.5 MG/0.5 ML SYRINGE IV ×4 (00:01→10:00)
[2021-02-27] MEDS: Lactated Ringers 1,000 ML 100 ML IV (00:09)
[2021-02-27] MEDS: Cefazolin 2 GM in 0.9% Normal Saline 100 ML IV ×3 (00:11→15:34)
[2021-02-27 00:46] LABS: Bedside Glucose 216 mg/dL (70-110)
--- NOTE | 2021-02-27 00:48 | PCS.PANDOC ---
PANDEMIC DOCUMENTATION INITIATED: Date: 12/29/2020 Time: 190
[2021-02-27] MEDS: Insulin Lispro 100 UNIT/ML INSULN.PEN SC ×5 (00:55→21:50)
[2021-02-27] MEDS: MELATONIN 10 MG TABLET PO ×2 (00:55→21:50)
[2021-02-27] MEDS: Acetaminophen 500 MG Tablet 1000 MG PO ×3 (06:16→21:49)
[2021-02-27 06:21] LABS: Bedside Glucose 151 mg/dL (70-110)
--- NOTE | 2021-02-27 06:38 | PCM.PN.HOSP ---
Subjective Subjective Patient is a 71-year-old female with a significant history of diabetes mellitus and obstructive sleep apnea who is status post open reduction internal fixation extra-articular right distal humerus fracture postop day 1. Internal medicine service has been consulted to follow-up with medical conditions. Patient reports improved pain in her right arm. She denies any other symptoms at this time. Objective Data Objective Data Vital Signs: Vital Signs Temp Pulse Resp BP Pulse Ox 97.9 F 66 16 121/62 H 96 02/27/21 06:10 02/27/21 06:10 02/27/21 06:10 02/27/21 06:10 02/27/21 06:10 Oxygen Flow Rate (L/min) 3 Oxygen Delivery Method CPAP Weight: 95.5 kg Body Mass Index (BMI) 39.7 Intake & Output: Intake and Output for Last 24 Hours 02/25/21 02/26/21 02/27/21 23:59 23:59 23:59 Intake Total 3110 / 3110 111.67 / 111.67 Balance 3110 / 3110 111.67 / 111.67 Lab / Micro Data Result Diagrams: 02/26/21 13:18 Labs: Laboratory Results - last 24 hr 02/26/21 13:05: POC Glucose 116 H 02/26/21 13:18: WBC 7.6, RBC 3.77 L, Hgb 10.4 L, Hct 32.9 L, MCV 87.3, MCH 27.6, MCHC 31.6 L, RDW Std Deviation 46.3 H, RDW Coeff of Zee 14.5, Plt Count 271, MPV 9.5 02/26/21 13:18: Hemoglobin A1c 6.3 H 02/26/21 19:10: POC Glucose 146 H 02/26/21 21:49: POC Glucose 213 H 02/27/21 00:39: POC Glucose 216 H 02/27/21 06:14: POC Glucose 151 H Radiography Diagnostic Testing: Radiology Impression Elbow X-Ray 02/26/21 14:00 IMPRESSION: Intraoperative fluoroscopic images right elbow as above. Electronically Signed: Royer Lopez DO at 21:48 EDT Tel , Service support , Physical Exam Narrative Physical exam: General: Well-nourished, well-developed. Head: Normocephalic, atraumatic, no tenderness Eyes: PERRLA, EOMI ENT, no trauma, moist mucous membranes, no rhinorrhea Neck: Nontender, full range of motion, no spinal tenderness, deformities, step-off CVS: Regular rate and rhythm. S1-S2 present. No murmur, gallop or rub. Respiratory : clear to auscultation bilaterally, chest wall nontender, no wheezing Abdomen: Soft, nontender, nondistended, normal bowel sounds, no masses : Deferred Back: Nontender, no CVA tenderness, no midline spinal tenderness, deformities, step-offs Extremities: Right arm in Alberto wrap. Left with no swelling pain or tenderness. Skin: Normal color, no trauma, abrasions Neuro: Alert, oriented, cranial nerves II through XII grossly intact. Psychiatry: Normal mood. Normal affect. Not depressed. Not anxious. 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 Accu-Chek with correction scale insulin ordered. Hypertension Blood pressure is not within goal Continue home regimen. Check blood pressure and adjust blood pressure medication as necessary. Depression/anxiety Zoloft continued Hyperlipidemia Statin continued Overactive bladder Oxybutynin continue Obstructive sleep apnea CPAP continued DVT prophylaxis On apixaban. Charges/Coding Visit Charges OBSV E&M: 33659 Initial observation care L2
[2021-02-27 07:31] LABS: Hemoglobin 9.1 g/dL (12.0-15.0); Mean Corp Hgb Conc 31.4 g/dL (32-36); Mean Corpuscular Hgb 27.7 pg (27.0-32.0); Mean Corpuscular Volume 88.1 fL (81-99); Mean Platelet Vol. 10.3 fl (6.2-12.0); Platelet Count 250 K/mm3 (150-450); RBC Distribution Width CV 14.5 % (11.6-14.6); RBC Distribution Width SD 47.3 fl (35.1-43.9); Red Blood Count 3.29 M/mm3 (4.2-5.4); White Blood Count 9.7 K/mm3 (4.4-11.0)
--- NOTE | 2021-02-27 07:53 | PCM.PN.ORT ---
Subjective Subjective Patient seen and examined at bedside this morning. Pain is controlled at rest this morning. Up with assistance to the bathroom last evening. Tolerating oral intake without nausea or vomiting. Denies chest pain, shortness of breath, fevers, chills. Numbness and tingling resolved. Objective Data Objective Data Vital Signs: Vital Signs Temp Pulse Resp BP Pulse Ox 97.9 F 66 16 121/62 H 96 02/27/21 06:10 02/27/21 06:10 02/27/21 06:10 02/27/21 06:10 02/27/21 06:10 Oxygen Flow Rate (L/min) 3 Oxygen Delivery Method CPAP Weight: 210 lb 8.663 oz Body Mass Index (BMI) 39.7 Intake & Output: Intake and Output for Last 24 Hours 02/25/21 02/26/21 02/27/21 23:59 23:59 23:59 Intake Total 3110 / 3110 111.67 / 111.67 Balance 3110 / 3110 111.67 / 111.67 Lab / Micro Data Result Diagrams: 02/27/21 06:40 Labs: Laboratory Results - last 24 hr 02/26/21 13:05: POC Glucose 116 H 02/26/21 13:18: WBC 7.6, RBC 3.77 L, Hgb 10.4 L, Hct 32.9 L, MCV 87.3, MCH 27.6, MCHC 31.6 L, RDW Std Deviation 46.3 H, RDW Coeff of Zee 14.5, Plt Count 271, MPV 9.5 02/26/21 13:18: Hemoglobin A1c 6.3 H 02/26/21 19:10: POC Glucose 146 H 02/26/21 21:49: POC Glucose 213 H 02/27/21 00:39: POC Glucose 216 H 02/27/21 06:14: POC Glucose 151 H 02/27/21 06:40: WBC 9.7, RBC 3.29 L, Hgb 9.1 L, Hct 29.0 L, MCV 88.1, MCH 27.7, MCHC 31.4 L, RDW Std Deviation 47.3 H, RDW Coeff of Zee 14.5, Plt Count 250, MPV 10.3 Radiography Diagnostic Testing: Radiology Impression Elbow X-Ray 02/26/21 14:00 IMPRESSION: Intraoperative fluoroscopic images right elbow as above. Electronically Signed: Royer Lopez DO at 21:48 EDT Tel , Service support , Physical Exam Narrative General - A&Ox3, NAD. VSS/AF. Right upper Extremity - SILT & 5/5 in radial, ulnar, musculocutaneous, axillary, and median nerve distributions. Radial, ulnar pulses 2+. Compartments soft and compressible. BCR in finger tips. Surgical dressing C/D/I. Assessment & Plan Assessment/Plan (1) Fracture of lower end of right humerus: QUALIFIERS: Encounter type: subsequent encounter Fracture type: closed Fracture morphology: other fracture Fracture alignment: displaced Fracture healing: with routine healing Qualified Code(s): S42.491D - Other displaced fracture of lower end of right humerus, subsequent encounter for fracture with routine healing PLAN: POD#1 s/p right distal humerus open reduction internal fixation - Pain control - Medicine consulted for medical management - PT/OT -nonweightbearing through operative extremity. Range of motion as tolerated to the right elbow. - DVT PPX -restarting home Eliquis today, early mobilization, SCDs - Case management - D/C planning. Patient does live alone, may require placement -Patient doing well this morning. Anticipate discharge when she is final disposition destination is determined.
[2021-02-27] MEDS: metFORMIN HCl 1,000 MG Tablet 1000 MG PO ×2 (09:14→17:20)
[2021-02-27] MEDS: Glimepiride 2 MG Tablet PO ×2 (09:15→17:20)
--- NOTE | 2021-02-27 09:26 | PCM.PN.HOSP ---
Subjective Subjective Patient seen and dampened at bedside. She is postop day 1 for right ORIF humeral fracture. She is working with PT OT currently. She denies any significant pain. No numbness, tingling, burning sensation in extremities. No issues in the interim. Discussed with nursing. Objective Data Objective Data Vital Signs: Vital Signs Temp Pulse Resp BP Pulse Ox 97.9 F 66 16 121/62 H 94 02/27/21 06:10 02/27/21 06:10 02/27/21 06:10 02/27/21 06:10 02/27/21 06:30 Oxygen Flow Rate (L/min) 3 Oxygen Delivery Method CPAP Weight: 95.5 kg Body Mass Index (BMI) 39.7 Intake & Output: Intake and Output for Last 24 Hours 02/25/21 02/26/21 02/27/21 23:59 23:59 23:59 Intake Total 3110 / 3110 111.67 / 111.67 Balance 3110 / 3110 111.67 / 111.67 Lab / Micro Data Result Diagrams: 02/27/21 06:40 Labs: Laboratory Results - last 24 hr 02/26/21 13:05: POC Glucose 116 H 02/26/21 13:18: WBC 7.6, RBC 3.77 L, Hgb 10.4 L, Hct 32.9 L, MCV 87.3, MCH 27.6, MCHC 31.6 L, RDW Std Deviation 46.3 H, RDW Coeff of Zee 14.5, Plt Count 271, MPV 9.5 02/26/21 13:18: Hemoglobin A1c 6.3 H 02/26/21 19:10: POC Glucose 146 H 02/26/21 21:49: POC Glucose 213 H 02/27/21 00:39: POC Glucose 216 H 02/27/21 06:14: POC Glucose 151 H 02/27/21 06:40: WBC 9.7, RBC 3.29 L, Hgb 9.1 L, Hct 29.0 L, MCV 88.1, MCH 27.7, MCHC 31.4 L, RDW Std Deviation 47.3 H, RDW Coeff of Zee 14.5, Plt Count 250, MPV 10.3 Radiography Diagnostic Testing: Radiology Impression Elbow X-Ray 02/26/21 14:00 IMPRESSION: Intraoperative fluoroscopic images right elbow as above. Electronically Signed: Royer Lopez, DO at 21:48 EDT Tel , Service support , Physical Exam Narrative Physical exam: General: Well-nourished, well-developed. Head: Normocephalic, atraumatic, no tenderness Eyes: PERRLA, EOMI ENT, no trauma, moist mucous membranes, no rhinorrhea Neck: Nontender, full range of motion, no spinal tenderness, deformities, step-off CVS: Regular rate and rhythm. S1-S2 present. No murmur, gallop or rub. Respiratory : clear to auscultation bilaterally, chest wall nontender, no wheezing Abdomen: Soft, nontender, nondistended, normal bowel sounds, no masses : Deferred Back: Nontender, no CVA tenderness, no midline spinal tenderness, deformities, step-offs Extremities: Right arm in Alberto wrap. Left with no swelling pain or tenderness. Distal pulses intact Skin: Normal color, no trauma, abrasions Neuro: Alert, oriented, cranial nerves II through XII grossly intact. Psychiatry: Normal mood. Normal affect. Not depressed. Not anxious. 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 PT OT eval and treat. Discharge planning per Ortho surgery. Continue supportive care as below. #Open reduction internal fixation extra-articular right distal humerus fracture Management by general surgery #Diabetes mellitus Continue home regimen. Accu-Chek with correction scale insulin ordered. #Hypertension Blood pressure remains slightly elevated, but stable Continue home regimen. Check blood pressure and adjust blood pressure medication as necessary. #Depression/anxiety Zoloft continued #Hyperlipidemia Statin continued #Overactive bladder Oxybutynin continue #Obstructive sleep apnea CPAP continued #DVT prophylaxis On apixaban Charges/Coding Visit Charges OBSV E&M: 60762 Subsequent observation care L2
--- NOTE | 2021-02-27 09:42 | CASEMGMT ---
Addendum entered by Myra Koehler 02/27/21 10:00: Social Work Pt made aware that TCU can accept when insurance auth is obtained. Pt is agreeable and states she will keep her sisters updated. MARGOT Gayle Original Note: Social Work Pt is know to this SW from previous TCU placement. SW met with pt to discuss discharge plans. Pt discharged from TCU on 02/20 with her sister, who lives out of state, staying with her and assisting with care until planned surgery on 02/26. Pt sister returns home today and now pt will be at home alone. Pt requesting to go to TCU for continued rehabilitation until she is ready to discharge home alone and can care for herself. Referral made to Valeria in TCU and they are able to accept pt. Precert with insurance will be initiated and pt can be accepted to TCU once precert is obtained. Plan: TCU, pending insurance precert MARGOT Gayle
[2021-02-27] MEDS: Metoprolol Tartrate 50 MG Tablet PO ×2 (10:00→21:49)
[2021-02-27] MEDS: APIXABAN 5 MG TABLET PO ×2 (10:01→21:48)
[2021-02-27] MEDS: Sertraline 100 MG Tablet 200 MG PO (10:01)
[2021-02-27] MEDS: Furosemide 40 MG Tablet PO ×2 (10:01→10:02)
[2021-02-27] MEDS: Tolterodine Tartrate 4 MG CAP.SA PO (10:01)
[2021-02-27] MEDS: Losartan Potassium 50 MG Tablet PO ×2 (10:01→21:49)
[2021-02-27] MEDS: LINAGLIPTIN 5 MG TABLET PO (10:02)
[2021-02-27] MEDS: amLODIPine 10 MG Tablet PO (10:02)
[2021-02-27 11:40] LABS: Bedside Glucose 232 mg/dL (70-110)
--- NOTE | 2021-02-27 12:26 | PCM.TXEXTCAR ---
Diet 02/27/21 09:46 Diet: Consistent Carb - Calorie Controlled Food consistency:: Regular Liquid Consistency:: Regular/Thin Dietary Modifications:: No Added Salt Is pt able to select menu?: No Diet Comments: Cut food into bite size pieces unless it is a sandwich or finger food How many daily calories?: 1800 calorie Wound(s) RUE: Wound Type: Surgical Incision Therapies Weight Bearing: Non weight bearing Problem/Diagnosis (1) S/P ORIF (open reduction internal fixation) fracture: Status: Acute Comment: Dry sterile dressing changes daily Ok to shower POD#4 (2) Diabetes mellitus: Status: Chronic (3) Obstructive sleep apnea: Status: Acute Allergies/Procedures Done in Hospital Allergies fosinopril [From Monopril] Allergy (Unknown, Verified 02/26/21 12:56) unknown oxycodone Adverse Reaction (Verified 02/26/21 12:57) Other HALLUCINATIONS pioglitazone Adverse Reaction (Verified 02/26/21 12:56) Other Type of Care/Length of Stay Estimated LOS: Convalescent Care Less Than 30 days Type of Care Needed: Skilled Rehab Potential: Good Prognosis: Good Additional Orders/Day of Discharge Day of Discharge: 02/27/21 Dietary and Speech Recommendations Dietitian Recommendations/Changes: Will change diet to 1800 calorie controlled, No Added Salt diet w/ food cut up into bite size pieces unless if it is a finger food or sandwich. Follow Up Care Please Follow Up With: Micky Guy DO Discharge Plan Admission Admit Date/Time: 02/26/21 18:42 Primary Reason for Your Visit: Right elbow ORIF Attending Provider: William Fernando Primary Care Provider: Sulma Reagan Consulting Providers: Key Chiang ; Elvia Damon ; Hira Almaraz ; Serene Huitron ; Felipe Coker ; Andres Loza ; Wale Jacobsen ; Sulma Reagan ; Kirk Reagan ; Nicholas Delvalle ; Kiran Ortega ; William Fernando ; Omayra Cho ; Guanaco Jasmine ; Kisha Lopez ; Micky Vargas ; Kirill Terry ; Durga Guzman ; Venkat Castaneda ; Nicole Miller NP ; Jami Waddell ; Bettina Ryan SENIOR WEB SERVICES DEVELOPER ; Guanaco Mckeon SENIOR WEB SERVICES DEVELOPER ; Christine Hay ; Josefina Cason Instructions Additional Instructions / Restrictions: Range of motion as tolerated R elbow Nonweight bearing right elbow Dry sterile dressing changes daily until POD#4 then ok to leave open to air if no drainage Discharge Orders/Prescriptions Prescriptions: New oxycodone-acetaminophen [Percocet] 5-325 mg tablet 1 tab PO Q6H PRN (Reason: pain) 7 Days Qty: 28 RF: 0 No Action melatonin 10 mg capsule 10 mg PO HS PRN (Reason: Sleep) RF: 0 sertraline [Zoloft] 100 mg tablet 200 mg PO DAILY RF: 0 furosemide 40 mg tablet 40 mg PO DAILY RF: 0 ferrous sulfate 325 mg (65 mg iron) tablet 325 mg PO DAILY RF: 0 metformin 1,000 mg tablet 1,000 mg PO BID RF: 0 Januvia 100 mg tablet 100 mg PO DAILY RF: 0 acetaminophen 500 mg Tablet 1,000 mg PO Q6H PRN PRN (Reason: Pain Score 1-3) Qty: 0 RF: 0 lorazepam 0.5 mg Tablet 0.5 mg PO Q6H PRN PRN (Reason: Anxiety) 7 Days Qty: 28 RF: 0 calcium 600 mg Capsule 600 mg PO BID RF: 0 multivitamin Capsule 1 cap PO DAILY RF: 0 cholecalciferol (vitamin D3) [Vitamin D3] 25 mcg (1,000 unit) Tablet,Chewable 25 mcg PO BID RF: 0 apixaban 5 mg tablet 5 mg PO BID Qty: 180 RF: 3 amlodipine 10 mg tablet 10 mg PO DAILY Qty: 90 RF: 3 losartan 50 mg tablet 50 mg PO BID Qty: 180 RF: 3 simvastatin 20 mg tablet 20 mg PO QHS Qty: 90 RF: 3 metoprolol tartrate 50 mg tablet 50 mg PO BID Qty: 60 RF: 1 glimepiride 2 mg tablet 2 mg PO BID Qty: 180 RF: 3 oxybutynin chloride 15 mg tablet extended release 24hr 15 mg PO DAILY Qty: 90 RF: 1 Referrals / Follow Up: Sulma Reagan MD [Primary Care Provider] - Micky Guy DO [STAFF PHYSICIAN] - Within 2 Weeks Disposition Disposition (needs filled in before D/C Order can be placed): Retirement Facility
[2021-02-27] MEDS: Ferrous Sulfate 325 MG Tablet PO (12:38)
[2021-02-27] MEDS: oxyCODONE 5 MG Tablet PO ×2 (12:40→20:24)
--- NOTE | 2021-02-27 15:12 | CASEMGMT ---
Social Work Note HUAN received call from Valeria with TCU stating pt has been approved, can discharge to TCU today. HUAN placed a call to projects manager and updated her, green sheet on chart for staff to follow. Pt will also need a COVID test, projects manager is aware. Plan: TCU today Becca Sung MSW, HOUSEKEEPING AIDE
[2021-02-27 17:31] LABS: Bedside Glucose 450 mg/dL (70-110)
[2021-02-27 22:01] LABS: Bedside Glucose 168 mg/dL (70-110)
[2021-02-28] VITALS (7 sets, daily range): BP systolic 116–144; BP diastolic 60–72; PULSE 78–83; RESP 16–18; TEMP 36.4–36.8; O2SAT 89–99
[2021-02-28] MEDS: oxyCODONE 5 MG Tablet PO ×2 (03:12→09:51)
[2021-02-28] MEDS: Acetaminophen 500 MG Tablet 1000 MG PO ×3 (06:08→20:30)
[2021-02-28 06:16] LABS: Bedside Glucose 117 mg/dL (70-110)
[2021-02-28 06:27] LABS: Absolute Lymphocyte Count 1.03 X10^3/uL (0.83-4.51); Absolute Neutrophil Count 6.8 X10^3/uL (2.0-7.7); Basophil# 0.03 X10^3/uL; Basophil% 0.4 % (0-1); Eosinophil# 0.11 X10^3/uL; Eosinophils% 1.3 % (0-5); Hemoglobin 9.1 g/dL (12.0-15.0); Lymphocyte # 1.03 X10^3/ul (0.83-4.51); Lymphocyte % 12.1 % (19-41); Mean Corp Hgb Conc 31.4 g/dL (32-36); Mean Corpuscular Hgb 27.9 pg (27.0-32.0); Mean Platelet Vol. 9.8 fl (6.2-12.0); Monocyte# 0.55 X10^3/uL; Monocyte% 6.5 % (0-10); NRBC Flagged by Analyzer 0 % (0-5); Neutrophil # 6.77 X10^3/uL (2.7-7.7); Neutrophil % 79.3 % (47-70); Platelet Count 209 K/mm3 (150-450); RBC Distribution Width CV 14.5 % (11.6-14.6); RBC Distribution Width SD 46.7 fl (35.1-43.9); Red Blood Count 3.26 M/mm3 (4.2-5.4); White Blood Count 8.5 K/mm3 (4.4-11.0)
[2021-02-28 06:53] LABS: Anion Gap 5 (5-15); BUN 22 mg/dL (7-18); BUN/Creat Ratio 21.6 RATIO (10-20); Calcium,Total 8.5 mg/dL (8.5-10.1); Chloride 105 mmol/L (98-107); Creatinine, Serum 1.02 mg/dL (0.55-1.02); EST Glomerular Filtration Rate 57 mL/min (>60); Est Glom Filt Rate - Afr Amer 69 mL/min (>60); Estimated Creatinine Clearance 39.28 ml/min; Glucose 107 mg/dL (74-106); Potassium 3.9 mmol/L (3.5-5.1); Sodium Level 139 mmol/L (136-145)
--- NOTE | 2021-02-28 07:10 | PN.ORTHO_ITS ---
Subjective Subjective Patient seen and examined at bedside this morning. Denies any new complaints. States pain is better controlled with the oral oxycodone and scheduled Tylenol. Denies numbness or tingling. Positive flatus but no BM at this point. Denies fevers, chills, nausea vomiting, chest pain or shortness of breath. Objective Data Objective Data Vital Signs: Vital Signs Temp Pulse Resp BP Pulse Ox 98 F 84 16 145/81 H 97 02/27/21 21:46 02/27/21 21:49 02/27/21 21:46 02/27/21 21:46 02/27/21 21:46 Oxygen Flow Rate (L/min) 3 Oxygen Delivery Method CPAP Weight: 210 lb 8.663 oz Body Mass Index (BMI) 39.7 Intake & Output: Intake and Output for Last 24 Hours 02/26/21 02/27/21 02/28/21 23:59 23:59 23:59 Intake Total 3110 / 3110 1580.00 / 1980.00 750 / 750 Output Total 550 / 550 Balance 3110 / 3110 1580.00 / 1780.00 200 / 200 Lab / Micro Data Result Diagrams: 02/28/21 06:13 02/28/21 06:13 Labs: Laboratory Results - last 24 hr 02/27/21 06:40: WBC 9.7, RBC 3.29 L, Hgb 9.1 L, Hct 29.0 L, MCV 88.1, MCH 27.7, MCHC 31.4 L, RDW Std Deviation 47.3 H, RDW Coeff of Zee 14.5, Plt Count 250, MPV 10.3 02/27/21 11:29: POC Glucose 232 H 02/27/21 17:18: POC Glucose 450 H 02/27/21 21:43: POC Glucose 168 H 02/28/21 06:06: POC Glucose 117 H 02/28/21 06:13: WBC 8.5, RBC 3.26 L, Hgb 9.1 L, Hct 29.0 L, MCV 89.0, MCH 27.9, MCHC 31.4 L, RDW Std Deviation 46.7 H, RDW Coeff of Zee 14.5, Plt Count 209, MPV 9.8, Immature Gran % (Auto) 0.400, Neut % (Auto) 79.3 H, Lymph % (Auto) 12.1 L, Power % (Auto) 6.5, Eos % (Auto) 1.3, Baso % (Auto) 0.4, Absolute Neuts (auto) 6.8, Absolute Lymphs (auto) 1.03, Nucleated RBC % 0 02/28/21 06:13: Sodium 139, Potassium 3.9, Chloride 105, Carbon Dioxide 29.0, Anion Gap 5, BUN 22 H, Creatinine 1.02, Estim Creat Clear Calc 39.28, Est GFR (MDRD) Af Amer 69, Est GFR (MDRD) Non-Af 57 L, BUN/Creatinine Ratio 21.6 H, Glucose 107 H, Calcium 8.5 Micro: Microbiology 02/27/21 11:39 Nasal Secretion SARS-CoV-2 Antigen (Rapid) - Final Physical Exam Narrative General - A&Ox3, NAD. VSS/AF. Right upper Extremity - SILT & 5/5 in radial, ulnar, musculocutaneous, axillary, and median nerve distributions. Radial, ulnar pulses 2+. Compartments soft and compressible. BCR in finger tips. Surgical dressing C/D/I. Assessment & Plan Assessment/Plan (1) S/P ORIF (open reduction internal fixation) fracture: PLAN: POD#2 s/p right distal humerus ORIF - Pain control -tolerating oxycodone without adverse reaction - Medicine following for medical management. Appreciate recommendations - PT/OT -nonweightbearing to the right elbow, range of motion as tolerated - DVT PPX -Home Eliquis restarted, SCDs, early mobilization - Case management - D/C planning. Patient stable for discharge to nursing facility but pending approval. 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
[2021-02-28] MEDS: amLODIPine 10 MG Tablet PO (07:55)
[2021-02-28] MEDS: metFORMIN HCl 1,000 MG Tablet 1000 MG PO ×2 (07:55→16:40)
[2021-02-28] MEDS: Tolterodine Tartrate 4 MG CAP.SA PO (07:56)
[2021-02-28] MEDS: Sertraline 100 MG Tablet 200 MG PO (07:56)
[2021-02-28] MEDS: APIXABAN 5 MG TABLET PO ×2 (07:56→20:30)
[2021-02-28] MEDS: Glimepiride 2 MG Tablet PO ×2 (07:57→16:40)
[2021-02-28] MEDS: Metoprolol Tartrate 50 MG Tablet PO ×2 (07:57→20:30)
[2021-02-28] MEDS: Losartan Potassium 50 MG Tablet PO ×2 (07:57→20:30)
[2021-02-28] MEDS: LINAGLIPTIN 5 MG TABLET PO (07:58)
[2021-02-28] MEDS: traMADol 50 MG Tablet PO ×3 (07:59→18:33)
--- NOTE | 2021-02-28 10:45 | CM.ED ---
HUAN Note HUAN Shaw from [facility]/TCU. There is a issue with patient's insurance so patient will need to stay over the weekend and the issue will be reviewed on Tuesday. Plan: TCU when insurance issue is completed Martita CAMEJO
[2021-02-28] MEDS: Insulin Lispro 100 UNIT/ML INSULN.PEN SC ×2 (11:47→16:39)
[2021-02-28] MEDS: Ferrous Sulfate 325 MG Tablet PO (11:48)
[2021-02-28 12:00] LABS: Bedside Glucose 150 mg/dL (70-110)
--- NOTE | 2021-02-28 14:07 | CM.ED ---
HUAN Note HUAN texted Valeria from TCU. She said that there was issues with patient's insurance and patient could not go to TCU until it was resolved. Valeria said that the patient may need roasterman and thus since TCU is short term it may be beneficial for her to review options and go somewhere that could manage her after rehab if she needed roasterman placement and thus reducing the numbers of move. SW met with patient. Patient was asked about her plan after rehab as if she forsees group home SNF or going home and patient said I don't know. SW explained that TCU manages patient 10-14 days and if patient would need SNF or lower level of care then she would have to be transferred to another facility. SW asked if there was anywhere patient would want to go for SNF for rehab and that could manage a lower level of care if she needed it and patient said her first choice was [facility], [facility] and [place]. SW updated Valeria regarding patient's choices. Martita CAMEJO
[2021-02-28 17:00] LABS: Bedside Glucose 179 mg/dL (70-110)
[2021-02-28 20:56] LABS: Bedside Glucose 133 mg/dL (70-110)
[2021-03-01] VITALS (8 sets, daily range): BP systolic 99–147; BP diastolic 53–76; PULSE 72–82; RESP 16–18; TEMP 36.5–37.3; O2SAT 86–98
[2021-03-01] MEDS: traMADol 50 MG Tablet PO ×4 (00:54→18:47)
[2021-03-01] MEDS: MELATONIN 10 MG TABLET PO (00:54)
[2021-03-01] MEDS: Acetaminophen 500 MG Tablet 1000 MG PO ×3 (06:34→20:51)
[2021-03-01 06:45] LABS: Bedside Glucose 64 mg/dL (70-110)
--- NOTE | 2021-03-01 06:50 | NURSING ---
0633. pts blood glucose was 64, given orange juice x1 and ordered pts breakfast at this time
[2021-03-01 07:31] LABS: Bedside Glucose 101 mg/dL (70-110)
[2021-03-01] MEDS: metFORMIN HCl 1,000 MG Tablet 1000 MG PO ×2 (08:33→17:12)
[2021-03-01] MEDS: Glimepiride 2 MG Tablet PO ×2 (08:34→17:12)
[2021-03-01] MEDS: APIXABAN 5 MG TABLET PO ×2 (08:34→20:49)
[2021-03-01] MEDS: Losartan Potassium 50 MG Tablet PO (08:34)
[2021-03-01] MEDS: Tolterodine Tartrate 4 MG CAP.SA PO (08:34)
[2021-03-01] MEDS: Sertraline 100 MG Tablet 200 MG PO (08:35)
[2021-03-01] MEDS: amLODIPine 10 MG Tablet PO (08:35)
[2021-03-01] MEDS: Metoprolol Tartrate 50 MG Tablet PO (08:36)
[2021-03-01] MEDS: Furosemide 40 MG Tablet PO (08:36)
[2021-03-01] MEDS: LINAGLIPTIN 5 MG TABLET PO (08:38)
[2021-03-01 11:15] LABS: Bedside Glucose 85 mg/dL (70-110)
[2021-03-01] MEDS: Senna/Docusate Sodium 1 Tablet 2 TABLET PO ×2 (11:52→20:50)
[2021-03-01] MEDS: Ferrous Sulfate 325 MG Tablet PO (11:52)
--- NOTE | 2021-03-01 12:24 | PCM.PN.ORT ---
Subjective Subjective Patient seen and examined at bedside this morning. Denies any new complaints other than some constipation. Positive flatus. Oral laxative ordered. Denies fevers, chills, chest pain, shortness of breath, nausea vomiting, numbness or tingling. Has been up with therapy utilizing one-sided walker. States she has been attempting to move her elbow which is sore but she is able to move it somewhat. Objective Data Objective Data Vital Signs: Vital Signs Temp Pulse Resp BP Pulse Ox 97.7 F L 75 16 124/64 H 92 03/01/21 10:53 03/01/21 10:53 03/01/21 10:53 03/01/21 10:53 03/01/21 10:53 Oxygen Flow Rate (L/min) 2 Oxygen Delivery Method Room Air Weight: 210 lb 8.663 oz Body Mass Index (BMI) 39.7 Intake & Output: Intake and Output for Last 24 Hours 02/27/21 02/28/21 03/01/21 23:59 23:59 23:59 Intake Total 1580.00 / 1980.00 1770 / 1770 900 / 900 Output Total 550 / 550 Balance 1580.00 / 1780.00 1220 / 1220 900 / 900 Lab / Micro Data Result Diagrams: 02/28/21 06:13 02/28/21 06:13 Labs: Laboratory Results - last 24 hr 02/28/21 16:37: POC Glucose 179 H 02/28/21 20:29: POC Glucose 133 H 03/01/21 06:33: POC Glucose 64 L 03/01/21 07:28: POC Glucose 101 03/01/21 11:06: POC Glucose 85 Micro: Microbiology 02/27/21 11:39 Nasal Secretion SARS-CoV-2 Antigen (Rapid) - Final Physical Exam Narrative General - A&Ox3, NAD. VSS/AF. Right upper Extremity - SILT & 5/5 in radial, ulnar, musculocutaneous, axillary, and median nerve distributions. Radial, ulnar pulses 2+. Compartments soft and compressible. BCR in finger tips. Surgical dressing C/D/I. Assessment & Plan Assessment/Plan (1) S/P ORIF (open reduction internal fixation) fracture: PLAN: POD#3 s/p right distal humerus ORIF - Pain control -tolerating oxycodone without adverse reaction. Plan to continue scheduled tramadol and Tylenol with breakthrough oxycodone upon discharge. Paper prescriptions provided in the chart. - Medicine following for medical management. Appreciate recommendations - PT/OT -nonweightbearing to the right elbow, range of motion as tolerated - DVT PPX -Home Eliquis restarted, SCDs, early mobilization - Case management - D/C planning. Patient stable for discharge to nursing facility but pending approval. 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
[2021-03-01] MEDS: oxyCODONE 5 MG Tablet PO (15:08)
[2021-03-01 16:25] LABS: Bedside Glucose 90 mg/dL (70-110)
[2021-03-01] MEDS: Nystatin Powder 15gm Bottle 1 APPLIC TOPICAL (20:48)
[2021-03-01 20:51] LABS: Bedside Glucose 96 mg/dL (70-110)
[2021-03-02] MEDS: traMADol 50 MG Tablet PO ×2 (00:55→06:14)
--- NOTE | 2021-03-02 06:13 | NURSING ---
AM BG 50, 4 oz OJ given, will recheck
[2021-03-02] MEDS: Acetaminophen 500 MG Tablet 1000 MG PO (06:14)
[2021-03-02 06:20] VITALS: BP 142/59; PULSE 79; RESP 18; TEMP 37; O2SAT 94
[2021-03-02 06:26] LABS: Absolute Lymphocyte Count 1.66 X10^3/uL (0.83-4.51); Absolute Neutrophil Count 6.1 X10^3/uL (2.0-7.7); Basophil# 0.03 X10^3/uL; Basophil% 0.3 % (0-1); Eosinophil# 0.35 X10^3/uL; Hematocrit 28.2 % (37-47); Hemoglobin 8.7 g/dL (12.0-15.0); Lymphocyte # 1.66 X10^3/ul (0.83-4.51); Lymphocyte % 19.2 % (19-41); Mean Corp Hgb Conc 30.9 g/dL (32-36); Mean Corpuscular Hgb 27.2 pg (27.0-32.0); Mean Corpuscular Volume 88.1 fL (81-99); Monocyte# 0.47 X10^3/uL; Monocyte% 5.4 % (0-10); NRBC Flagged by Analyzer 0 % (0-5); Neutrophil % 70.6 % (47-70); Platelet Count 269 K/mm3 (150-450); RBC Distribution Width CV 14.2 % (11.6-14.6); White Blood Count 8.7 K/mm3 (4.4-11.0)
[2021-03-02 06:41] LABS: Bedside Glucose 50 mg/dL (70-110)
[2021-03-02 06:41] LABS: Bedside Glucose 94 mg/dL (70-110)
[2021-03-02 06:53] LABS: Anion Gap 8 (5-15); BUN 28 mg/dL (7-18); BUN/Creat Ratio 27.5 RATIO (10-20); Chloride 104 mmol/L (98-107); Creatinine, Serum 1.02 mg/dL (0.55-1.02); EST Glomerular Filtration Rate 57 mL/min (>60); Est Glom Filt Rate - Afr Amer 69 mL/min (>60); Estimated Creatinine Clearance 39.28 ml/min; Glucose 47 mg/dL (74-106); Potassium 3.6 mmol/L (3.5-5.1); Sodium Level 139 mmol/L (136-145)
[2021-03-02 09:11] VITALS: BP 114/62; PULSE 79; RESP 16; TEMP 36.6; O2SAT 92
[2021-03-02] MEDS: Glimepiride 2 MG Tablet PO (09:17)
[2021-03-02 09:18] VITALS: PULSE 79
[2021-03-02] MEDS: Metoprolol Tartrate 50 MG Tablet PO (09:18)
[2021-03-02] MEDS: Losartan Potassium 50 MG Tablet PO (09:18)
[2021-03-02] MEDS: APIXABAN 5 MG TABLET PO (09:18)
[2021-03-02] MEDS: Tolterodine Tartrate 4 MG CAP.SA PO (09:18)
[2021-03-02] MEDS: Furosemide 40 MG Tablet PO (09:18)
[2021-03-02] MEDS: metFORMIN HCl 1,000 MG Tablet 1000 MG PO (09:18)
[2021-03-02] MEDS: Senna/Docusate Sodium 1 Tablet 2 TABLET PO (09:19)
[2021-03-02] MEDS: amLODIPine 10 MG Tablet PO (09:19)
[2021-03-02] MEDS: Nystatin Powder 15gm Bottle 1 APPLIC TOPICAL (09:19)
[2021-03-02] MEDS: Sertraline 100 MG Tablet 200 MG PO (09:20)
[2021-03-02] MEDS: LINAGLIPTIN 5 MG TABLET PO (09:20)
[2021-03-02 09:21] VITALS: O2SAT 95
--- NOTE | 2021-03-02 10:50 | CASEMGMT ---
CORNELIO ALMANZAR in to complete [facility] form with patient. CORNELIO ALMANZAR explained [employer] form to patient, patient voiced understanding. Patient is unable to sign form due to right humerus fracture and is right handed. Patient gave verbal consent for form. Original form filed in chart. Patient provided copy of signed [facility] form. Patient had no further questions or concerns at this time.
[2021-03-02] MEDS: Ferrous Sulfate 325 MG Tablet PO (11:04)
[2021-03-02 11:25] LABS: Bedside Glucose 124 mg/dL (70-110)
--- NOTE | 2021-03-02 11:39 | PCM.PN.ORT ---
Subjective Subjective Patient seen and examined. Denies any new complaints. Continues with no BM but positive flatus. Pain controlled at rest. Denies any fevers, chills, nausea vomiting, chest pain or shortness of breath. Objective Data Objective Data Vital Signs: Vital Signs Temp Pulse Resp BP Pulse Ox 97.8 F 79 16 114/62 95 03/02/21 09:11 03/02/21 09:18 03/02/21 09:11 03/02/21 09:11 03/02/21 09:21 Oxygen Flow Rate (L/min) 2 Oxygen Delivery Method Room Air Weight: 210 lb 8.663 oz Body Mass Index (BMI) 39.7 Intake & Output: Intake and Output for Last 24 Hours 02/28/21 03/01/21 03/02/21 23:59 23:59 23:59 Intake Total 1770 / 1770 1350 / 1350 120 / 120 Output Total 550 / 550 Balance 1220 / 1220 1350 / 1350 120 / 120 Lab / Micro Data Result Diagrams: 03/02/21 06:00 03/02/21 06:00 Labs: Laboratory Results - last 24 hr 03/01/21 16:12: POC Glucose 90 03/01/21 20:44: POC Glucose 96 03/02/21 06:00: WBC 8.7, RBC 3.20 L, Hgb 8.7 L, Hct 28.2 L, MCV 88.1, MCH 27.2, MCHC 30.9 L, RDW Std Deviation 46.0 H, RDW Coeff of Zee 14.2, Plt Count 269, MPV 10.0, Immature Gran % (Auto) 0.500, Neut % (Auto) 70.6 H, Lymph % (Auto) 19.2, [place] % (Auto) 5.4, Eos % (Auto) 4.0, Baso % (Auto) 0.3, Absolute Neuts (auto) 6.1, Absolute Lymphs (auto) 1.66, Nucleated RBC % 0 03/02/21 06:00: Sodium 139, Potassium 3.6, Chloride 104, Carbon Dioxide 27.0, Anion Gap 8, BUN 28 H, Creatinine 1.02, Estim Creat Clear Calc 39.28, Est GFR (MDRD) Af Amer 69, Est GFR (MDRD) Non-Af 57 L, BUN/Creatinine Ratio 27.5 H, Glucose 47 L, Calcium 9.0 03/02/21 06:11: POC Glucose 50 L 03/02/21 06:28: POC Glucose 94 03/02/21 11:03: POC Glucose 124 H Micro: Microbiology 02/27/21 11:39 Nasal Secretion SARS-CoV-2 Antigen (Rapid) - Final Physical Exam Narrative General - A&Ox3, NAD. VSS/AF. Right upper Extremity - SILT & 5/5 in radial, ulnar, musculocutaneous, axillary, and median nerve distributions. Radial, ulnar pulses 2+. Compartments soft and compressible. BCR in finger tips. Surgical dressing C/D/I. Assessment & Plan Assessment/Plan (1) S/P ORIF (open reduction internal fixation) fracture: PLAN: POD#4 s/p right distal humerus ORIF - Pain control -tolerating oxycodone without adverse reaction. Plan to continue scheduled tramadol and Tylenol with breakthrough oxycodone upon discharge. Paper prescriptions provided in the chart. - Medicine following for medical management. Appreciate recommendations - PT/OT -nonweightbearing to the right elbow, range of motion as tolerated - DVT PPX -Home Eliquis restarted, SCDs, early mobilization - Case management -plan for discharge to TCU today (2) Diabetes mellitus: QUALIFIERS: Diabetes mellitus type: type 2 Diabetes mellitus detention insulin use: without detention use Diabetes mellitus complication status: without complication Qualified Code(s): E11.9 - Type 2 diabetes mellitus without complications (3) Obstructive sleep apnea:
--- NOTE | 2021-03-02 11:42 | PCM.DC.SUM ---
Providers Date of Admission: 02/26/21 Primary Care Physician: Dr. Sulma Reagan MD Consultations 02/26/21 18:50 Consult: Hospitalist Routine Consulting Provider: Gaetano Pena Reason for Consult: Medical management EMERGENT Consult: No MD Notified: Yes Date Notified: 02/26/21 Time Notified: 23:47 Method of Notification: Text Reason For Visit: RT ORIF DISTAL HUMERUS FX Diagnosis Discharge Diagnosis (1) S/P ORIF (open reduction internal fixation) fracture: Status: Acute Code(s): Z98.890 - Other specified postprocedural states; Z87.81 - Personal history of (healed) traumatic fracture (2) Diabetes mellitus: Status: Chronic Code(s): E11.9 - Type 2 diabetes mellitus without complications Qualifiers: Diabetes mellitus complication status: without complication 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 insulin use: without senior living use Diabetes mellitus type: type 2 Qualified Code(s): E11.9 - Type 2 diabetes mellitus without complications (3) Obstructive sleep apnea: Status: Acute Code(s): G47.33 - Obstructive sleep apnea (adult) (pediatric) Medications at Discharge Home Medications melatonin 10 mg capsule 10 mg PO HS PRN 07/07/20 apixaban 5 mg tablet 5 mg PO BID #180 tab 10/20/20 amlodipine 10 mg tablet 10 mg PO DAILY #90 tab 12/01/20 losartan 50 mg tablet 50 mg PO BID #180 tab 12/01/20 simvastatin 20 mg tablet 20 mg PO QHS #90 tab 12/01/20 glimepiride 2 mg tablet 2 mg PO BID #180 tab 12/12/20 metoprolol tartrate 50 mg tablet 50 mg PO BID #60 tab 12/12/20 oxybutynin chloride 15 mg tablet,extended release 24 hr 15 mg PO DAILY #90 tab 01/22/21 sertraline [Zoloft] 200 mg PO DAILY 01/26/21 Januvia 100 mg PO DAILY 01/27/21 ferrous sulfate 325 mg PO DAILY 01/27/21 furosemide 40 mg PO DAILY 01/27/21 metformin 1,000 mg PO BID 01/27/21 acetaminophen 1,000 mg PO Q6H PRN PRN #0 tab 02/17/21 lorazepam 0.5 mg PO Q6H PRN PRN 7 Days #28 tab 02/17/21 calcium 600 mg PO BID 02/25/21 cholecalciferol (vitamin D3) [Vitamin D3] 25 mcg PO BID 02/25/21 multivitamin 1 cap PO DAILY 02/25/21 acetaminophen 1,000 mg PO Q8 28 Days #168 tab MDD 3000 mg 03/01/21 oxycodone 5 - 10 mg PO Q6H PRN PRN 7 Days #28 tab 03/01/21 tramadol 50 mg PO Q6H 7 Days #28 tab 03/01/21 Hospital Course Operations - Summary of Care Provided Minutes Spent on Discharge: 15 Hospital Course: Patient underwent uncomplicated right distal humerus open reduction internal fixation with myself on 02/26/2021. She was initially placed in observation overnight. We consulted the hospitalist for medical management due to her multiple comorbidities. We attempted to discharge patient to the transitional care unit at [facility] but this was delayed due to insurance issues. Patient was restarted on her home Eliquis on postoperative day #1. No significant medical or surgical complications were encountered throughout her stay. After insurance approval, patient was able to be discharged to transitional care unit on today 03/02/2021 in stable condition. Physical Exam Narrative General - A&Ox3, NAD. VSS/AF. Right upper Extremity - SILT & 5/5 in radial, ulnar, musculocutaneous, axillary, and median nerve distributions. Radial, ulnar pulses 2+. Compartments soft and compressible. BCR in finger tips. Surgical dressing C/D/I. Weight / BMI Weight Weight: 210 lb 8.663 oz Body Mass Index (BMI) 39.7 ABG / Lab / Microbiology Data Result Diagrams: 03/02/21 06:00 03/02/21 06:00 Laboratory: Laboratory Results - last 24 hr 03/01/21 16:12: POC Glucose 90 03/01/21 20:44: POC Glucose 96 03/02/21 06:00: WBC 8.7, RBC 3.20 L, Hgb 8.7 L, Hct 28.2 L, MCV 88.1, MCH 27.2, MCHC 30.9 L, RDW Std Deviation 46.0 H, RDW Coeff of Zee 14.2, Plt Count 269, MPV 10.0, Immature Gran % (Auto) 0.500, Neut % (Auto) 70.6 H, Lymph % (Auto) 19.2, [place] % (Auto) 5.4, Eos % (Auto) 4.0, Baso % (Auto) 0.3, Absolute Neuts (auto) 6.1, Absolute Lymphs (auto) 1.66, Nucleated RBC % 0 03/02/21 06:00: Sodium 139, Potassium 3.6, Chloride 104, Carbon Dioxide 27.0, Anion Gap 8, BUN 28 H, Creatinine 1.02, Estim Creat Clear Calc 39.28, Est GFR (MDRD) Af Amer 69, Est GFR (MDRD) Non-Af 57 L, BUN/Creatinine Ratio 27.5 H, Glucose 47 L, Calcium 9.0 03/02/21 06:11: POC Glucose 50 L 03/02/21 06:28: POC Glucose 94 03/02/21 11:03: POC Glucose 124 H Microbiology: Microbiology 02/27/21 11:39 Nasal Secretion SARS-CoV-2 Antigen (Rapid) - Final D/C Instructions Please Follow Up With: Micky Guy DO When: Follow-up in approximately 2 weeks Meaningful Use Info Meaningful Use Diagnoses (Choose all that apply): None applicable Discharge Plan Admission Admit Date/Time: 02/26/21 18:42 Primary Reason for Your Visit: Right elbow ORIF Attending Provider: Kisah Lopez Primary Care Provider: Sulma Reagan Consulting Providers: Key Chiang ; Elvia Damon ; Hira Almaraz ; Serene Huitron ; Felipe Coker ; Andres Loza ; Wale Jacobsen ; Sulma Reagan ; Kirk Reagan ; Nicholas Delvalle ; Kiran Ortega ; William Fernando ; Omayra Cho ; [place] Jasmine ; Kisha Lopez ; Micky Vargas ; Kirill Terry ; Durga Guzman ; Venkat Castaneda ; Nicole Miller NP ; Jami Waddell ; Bettina Ryan NP ; Guanaco Mckeon NP ; Christine Hay ; Josefina Cason Instructions Additional Instructions / Restrictions: Range of motion as tolerated R elbow Nonweight bearing right elbow Dry sterile dressing changes daily until POD#4 then ok to leave open to air if no drainage Ok to shower, no tub soaks Discharge Orders/Prescriptions Prescriptions: New tramadol 50 mg Tablet 50 mg PO Q6H 7 Days Qty: 28 RF: 0 oxycodone 5 mg Tablet 5 - 10 mg PO Q6H PRN PRN (Reason: pain 1-10) 7 Days Qty: 28 RF: 0 acetaminophen 500 mg Tablet 1,000 mg PO Q8 MDD 3000 mg 28 Days Qty: 168 RF: 0 Continued melatonin 10 mg capsule 10 mg PO HS PRN (Reason: Sleep) RF: 0 sertraline [Zoloft] 100 mg tablet 200 mg PO DAILY RF: 0 furosemide 40 mg tablet 40 mg PO DAILY RF: 0 ferrous sulfate 325 mg (65 mg iron) tablet 325 mg PO DAILY RF: 0 metformin 1,000 mg tablet 1,000 mg PO BID RF: 0 Januvia 100 mg tablet 100 mg PO DAILY RF: 0 acetaminophen 500 mg Tablet 1,000 mg PO Q6H PRN PRN (Reason: Pain Score 1-3) Qty: 0 RF: 0 lorazepam 0.5 mg Tablet 0.5 mg PO Q6H PRN PRN (Reason: Anxiety) 7 Days Qty: 28 RF: 0 calcium 600 mg Capsule 600 mg PO BID RF: 0 multivitamin Capsule 1 cap PO DAILY RF: 0 cholecalciferol (vitamin D3) [Vitamin D3] 25 mcg (1,000 unit) Tablet,Chewable 25 mcg PO BID RF: 0 apixaban 5 mg tablet 5 mg PO BID Qty: 180 RF: 3 amlodipine 10 mg tablet 10 mg PO DAILY Qty: 90 RF: 3 losartan 50 mg tablet 50 mg PO BID Qty: 180 RF: 3 simvastatin 20 mg tablet 20 mg PO QHS Qty: 90 RF: 3 metoprolol tartrate 50 mg tablet 50 mg PO BID Qty: 60 RF: 1 glimepiride 2 mg tablet 2 mg PO BID Qty: 180 RF: 3 oxybutynin chloride 15 mg tablet extended release 24hr 15 mg PO DAILY Qty: 90 RF: 1 Referrals / Follow Up: Sulma Reagan MD [Primary Care Provider] - Micky Guy DO [STAFF PHYSICIAN] - Within 2 Weeks Disposition Disposition (needs filled in before D/C Order can be placed): Snf Facility
--- NOTE | 2021-03-02 12:01 | CASEMGMT ---
Social Work Note HUAN received call from Valeria with TCU stating pt was approved for TCU, pt can admit to TCU today. SW in to speak with pt. SW introduced self and role at [facility]. Pt is alert and orientated, engages appropriately in conversation. SW spoke with pt about discharge plans. SW informed pt that pt has been approved for TCU, pt can discharge to TCU today. HUAN spoke with pt about TCU vs SNF in the community. SW explained that TCU is short term, pt will likely only be able to be on TCU for two weeks. SW spoke with pt that if she feels she will need more than two weeks of therapy, pt should consider going to SNF in the community that pt can stay at longer term. Pt states she would like to try TCU for the first two weeks and see how she does after those two weeks. Pt states her home is now arranged for first floor living. Pt became emotional during conversation. Pt states that four years ago her on this date. SW offered support to pt. HUAN informed pt that she will discharge to TCU today. Pt states understanding, denied additional needs or concerns at this time. HUAN updated deputy general counsel. HUAN placed a call to Valeria with TCU and updated her. Plan: TCU today Becca Sung [employer], [employer]
--- NOTE | 2021-03-02 13:05 | PN.HOSP_ITS ---
Subjective Subjective Patient was seen and examined today. She had no complaints and felt well. Review of systems otherwise negative. Pain is well controlled. She has remained hemodynamically stable. Objective Data Objective Data Vital Signs: Vital Signs Temp Pulse Resp BP Pulse Ox 97.8 F 79 16 114/62 95 03/02/21 09:11 03/02/21 09:18 03/02/21 09:11 03/02/21 09:11 03/02/21 09:21 Oxygen Flow Rate (L/min) 2 Oxygen Delivery Method Room Air Weight: 210 lb 8.663 oz Body Mass Index (BMI) 39.7 Intake & Output: Intake and Output for Last 24 Hours 02/28/21 03/01/21 03/02/21 23:59 23:59 23:59 Intake Total 1770 / 1770 1350 / 1350 120 / 120 Output Total 550 / 550 Balance 1220 / 1220 1350 / 1350 120 / 120 Lab / Micro Data Result Diagrams: 03/02/21 06:00 03/02/21 06:00 Labs: Laboratory Results - last 24 hr 03/01/21 16:12: POC Glucose 90 03/01/21 20:44: POC Glucose 96 03/02/21 06:00: WBC 8.7, RBC 3.20 L, Hgb 8.7 L, Hct 28.2 L, MCV 88.1, MCH 27.2, MCHC 30.9 L, RDW Std Deviation 46.0 H, RDW Coeff of Zee 14.2, Plt Count 269, MPV 10.0, Immature Gran % (Auto) 0.500, Neut % (Auto) 70.6 H, Lymph % (Auto) 19.2, [place] % (Auto) 5.4, Eos % (Auto) 4.0, Baso % (Auto) 0.3, Absolute Neuts (auto) 6.1, Absolute Lymphs (auto) 1.66, Nucleated RBC % 0 03/02/21 06:00: Sodium 139, Potassium 3.6, Chloride 104, Carbon Dioxide 27.0, Anion Gap 8, BUN 28 H, Creatinine 1.02, Estim Creat Clear Calc 39.28, Est GFR (MDRD) Af Amer 69, Est GFR (MDRD) Non-Af 57 L, BUN/Creatinine Ratio 27.5 H, Glucose 47 L, Calcium 9.0 03/02/21 06:11: POC Glucose 50 L 03/02/21 06:28: POC Glucose 94 03/02/21 11:03: POC Glucose 124 H Micro: Microbiology 02/27/21 11:39 Nasal Secretion SARS-CoV-2 Antigen (Rapid) - Final Physical Exam Const alert, oriented x3 and no apparent distress Exam Limitations: no limitations HEENT moist oral mucous membranes Head and Scalp: normocephalic Eyes PERRL, EOMs intact bilaterally and conjunctivae normal Neck no lymphadenopathy and supple Resp normal respiratory effort, no retractions, no use of accessory muscles and clear to auscultation bilaterally Cardio regular rate, regular rhythm, S1 normal heart sound, S2 normal heart sound and no murmurs GI normal to inspection, nondistended, normoactive bowel sounds, soft to palpation, non-tender and non-distended Extremity no clubbing, cyanosis or edema Extremity Narrative: RUE wrapped in bandage from shoulder to wrist Peripheral Pulses: Yes pulses 2+ throughout, brachial pulses present, radial pulses present, ulnar pulses present and femoral pulses present Skin no rashes or lesions noted Neuro oriented x3 Sensorium / Orientation: awake and alert Psych affect normal Assessment & Plan Assessment/Plan (1) S/P ORIF (open reduction internal fixation) fracture: (2) Fracture of lower end of right humerus: QUALIFIERS: Encounter type: subsequent encounter Fracture type: closed Fracture morphology: other fracture Fracture alignment: displaced Fracture healing: with routine healing Qualified Code(s): S42.491D - Other displaced fracture of lower end of right humerus, subsequent encounter for fracture with routine healing (3) Obstructive sleep apnea: PLAN: #Right distal humeral fracture s/p open reduction and internal fixation * Management as per orthopedics. Pain is well controlled. * #Type 2 diabetes mellitus: On insulin sliding scale. Accu-Cheks AC at bedtime. On Metformin and Januvia as well as # Hypertension: Stable. On amlodipine and losartan as well as metoprolol #LEIGH ANN: On CPAP nightly #Depression and anxiety: On Zoloft #Hyperlipidemia: On statin #History of overactive bladder: On oxybutynin #Hyperlipidemia: On statin DVT prophylaxis: On Eliquis Disposition: for DC to TCU today. Charges/Coding Visit Charges Inpatient E&M: 55873 Subs Hosp L2
== END 2021-03-02 13:13 | disposition skilled nursing facility (03) ==
LOC: SDC 21:33 → MS2 21:33
PROVIDERS: Anesthesiology; Family Medicine; Internal Medicine; Admitting Provider Student in an Organized Health Care Education/Training Program; PCP Internal Medicine; Referring Provider Student in an Organized Health Care Education/Training Program; Visit Provider Student in an Organized Health Care Education/Training Program
PROC: (CPT 24545; principal; 2021-02-26 13:40)
DX: S42.47 Transcondylar fracture of humerus (principal); S82.024D Nondisplaced longitudinal fracture of right patella, subsequent encounter for closed fracture with routine healing; F32.9 Major depressive disorder, single episode, unspecified; E11.9 Type 2 diabetes mellitus without complications; I10 Essential (primary) hypertension; E78.00 Pure hypercholesterolemia, unspecified; M19.90 Unspecified osteoarthritis, unspecified site; I48.91 Unspecified atrial fibrillation; G47.33 Obstructive sleep apnea (adult) (pediatric); F41.9 Anxiety disorder, unspecified; F32.A Depression, unspecified; E78.5 Hyperlipidemia, unspecified; N32.81 Overactive bladder; W19.XXXD Unspecified fall, subsequent encounter; Y93.9 Activity, unspecified; Y92.9 Unspecified place or not applicable; Y99.9 Unspecified external cause status; Z79.899 Other long term (current) drug therapy; Z79.84 Long term (current) use of oral hypoglycemic drugs; Z79.01 Long term (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
CPT/HCPCS: 01740; 24545; 36415; 73070; 76000; 80048; 82962; 83036; 85025; 85027; 87426; 96361; 96365; 96366; 96375; 96376; 97110; 97116; 97162; 97166; 97530; 97535; 97802; 99218; 99251; C1713; J7120; G0378; G0463; J2405

== ENCOUNTER 2021-03-02 13:29 | Inpatient (IN) | payer MEDICARE, SELFPAY ==
[2021-03-02 13:51] VITALS: BP 143/76; PULSE 75; PULSE 79; RESP 16; RESP 18; TEMP 36.4; O2SAT 92; O2SAT 96; BMI 40.4
[2021-03-02] MEDS: traMADol 50 MG Tablet PO ×2 (15:51→21:10)
[2021-03-02 17:00] LABS: Bedside Glucose 102 mg/dL (70-110)
[2021-03-02 17:11] VITALS: BP 143/76; PULSE 75
[2021-03-02] MEDS: APIXABAN 5 MG TABLET PO (17:11)
[2021-03-02] MEDS: Metoprolol Tartrate 50 MG Tablet PO (17:11)
[2021-03-02] MEDS: Glimepiride 2 MG Tablet PO (17:12)
[2021-03-02] MEDS: metFORMIN HCl 1,000 MG Tablet 1000 MG PO (17:12)
[2021-03-02] MEDS: Losartan Potassium 50 MG Tablet PO (17:13)
[2021-03-02] MEDS: Cholecalciferol (VIT D3) 25 MCG TABLET (1,000 UNITS) PO (17:13)
[2021-03-02] MEDS: Calcium (Elemental) 500 MG Tablet PO (17:13)
--- NOTE | 2021-03-02 20:27 | HP.PCM_ITS ---
HPI - General General Date of Admission: 03/02/21 HPI Narrative JOSELINE RIDDLE, is a 71 Female who presents with followin02/26/2021 Dr. Guy performed open reduction internal fixation extra- articular right distal humerus fracture. 02/27/2021 Non Weight Bearing right upper extremity. Restart Eliquis for DVT prophylaxis, atrial fibrillation. 02/28/2021 Pain control improved. 03/01/2021 Constipation, laxative ordered. 03/02/2021 Admit to TCU with debility, here for rehabilitation, stregthening, prior to discharge home alone. [facility] Medical History Abnormal mammogram of right breast Abnormal mammogram of right breast Afib Alcohol use Anemia Anemia Anxiety Anxiety and depression Arthritis Arthritis Back pain Breast lump Cardiology follow-up encounter COVID-19 vaccine series completed CPAP (continuous positive airway pressure) dependence CVA (cerebral vascular accident) Depression Depression with anxiety Diabetes Diabetes Dietary restriction Essential hypertension Former smoker High cholesterol History of echocardiogram History of edema History of stress test History of UTI Hyperlipidemia Kidney disease Non-rheumatic mitral valve stenosis Nonrheumatic aortic (valve) stenosis Osteoporosis Paroxysmal atrial fibrillation Preoperative evaluation to rule out surgical contraindication Sleep apnea Venous insufficiency Vision problems Walker as ambulation aid Home Medications melatonin 10 mg capsule 10 mg PO HS PRN 07/07/20 [History Last Taken Unknown] apixaban 5 mg tablet 5 mg PO BID #180 tab 10/20/20 [Rx Last Taken 02/23/21] amlodipine 10 mg tablet 10 mg PO DAILY #90 tab 12/01/20 [Rx Last Taken 02/26/21 09:00] losartan 50 mg tablet 50 mg PO BID #180 tab 12/01/20 [Rx Last Taken 02/26/21 09:00] simvastatin 20 mg tablet 20 mg PO QHS #90 tab 12/01/20 [Rx Last Taken 01/25/21] glimepiride 2 mg tablet 2 mg PO BID #180 tab 12/12/20 [Rx Last Taken 01/26/21] metoprolol tartrate 50 mg tablet 50 mg PO BID #60 tab 12/12/20 [Rx Last Taken 02/26/21 09:00] oxybutynin chloride 15 mg tablet,extended release 24 hr 15 mg PO DAILY #90 tab 01/22/21 [Rx Last Taken 01/25/21] sertraline [Zoloft] 200 mg PO DAILY 01/26/21 [History Last Taken 01/25/21] Januvia 100 mg PO DAILY 01/27/21 [History Last Taken Unknown] ferrous sulfate 325 mg PO DAILY 01/27/21 [History Last Taken Unknown] furosemide 40 mg PO DAILY 01/27/21 [History Last Taken Unknown] metformin 1,000 mg PO BID 01/27/21 [History Last Taken Unknown] acetaminophen 1,000 mg PO Q6H PRN PRN #0 tab 02/17/21 [Rx Last Taken Unknown] lorazepam 0.5 mg PO Q6H PRN PRN 7 Days #28 tab 02/17/21 [Rx Last Taken Unknown] calcium 600 mg PO BID 02/25/21 [History Last Taken Unknown] cholecalciferol (vitamin D3) [Vitamin D3] 25 mcg PO BID 02/25/21 [History Last Taken Unknown] multivitamin 1 cap PO DAILY 02/25/21 [History Last Taken Unknown] oxycodone 5 - 10 mg PO Q6H PRN PRN 7 Days #28 tab 03/01/21 [Rx Last Taken Unknown] acetaminophen 1,000 mg PO Q8 MDD 3000 mg 03/02/21 [History Last Taken Unknown] tramadol 50 mg PO Q6H 03/02/21 [History Last Taken Unknown] Allergy/AdvReac Type Severity Reaction Status Date / Time fosinopril [From Monopril] Allergy Unknown unknown Verified 02/26/21 12:56 oxycodone AdvReac Other Verified 02/26/21 12:57 pioglitazone AdvReac Other Verified 02/26/21 12:56 Family History Father Diabetes Hypertension High cholesterol Heart disease Melanoma Surgical History History of back surgery History of carpal tunnel release History of hand surgery History of hysterectomy History of surgical amputation of finger of right hand Social History household members: none Smoking Status: Former smoker how long ago did patient quit smokin years ago alcohol intake: current alcohol intake frequency: holidays/special occasions only substance use type: does not use what type of physical activity do you participate in: other details: aquasize ROS Constitutional Constitutional: Denies chills, fever(s) or weight gain ENT HEENT: Denies headache(s), nasal congestion or nasal discharge Cardiovascular Cardiovascular: Denies chest pain or palpitations Respiratory/Chest Respiratory/Chest: Denies cough, excessive phlegm production or shortness of breath with exertion Gastrointestinal Gastrointestinal: Denies abdominal pain, nausea or vomiting Genitourinary Genitourinary: Denies dysuria Musculoskeletal Musculoskeletal: Denies joint pain or joint swelling Integumentary Integumentary: Denies rash or wounds Neurologic Neurologic: Denies focal weakness, numbness or tingling Psychiatric Psychiatric: Reports auditory hallucinations; Denies anxiety, depression, h omicidal ideation or suicidal ideation Vital Signs Vital Signs Vital Signs: 03/02/21 13:51 03/02/21 17:11 Temperature 97.5 F L Temperature Source Temporal Pulse Rate 75 75 Pulse Rhythm Regular Pulse Strength Normal (2+) Respiratory Rate 18 Respiratory Effort Normal Respiratory Depth Normal Respiratory Pattern Normal Blood Pressure 143/76 H 143/76 H Blood Pressure Mean 98 Blood Pressure Source Monitor Blood Pressure Position Sitting Blood Pressure Location Left Arm Pulse Ox 92 Oxygen Delivery Method Room Air Weight Weight: 97.069 kg Body Mass Index (BMI) 40.4 Physical Exam Const alert and oriented x3 General Appearance: cooperative HEENT normocephalic Eyes PERRL and EOMs intact bilaterally Neck supple, no JVD and no carotid bruits Resp normal respiratory effort, normal air movement and clear to auscultation bilaterally Cardio regular rate and regular rhythm GI normal to inspection, nondistended, normoactive bowel sounds, non-tender and non-distended Extremity normal capillary refill Extremity Narrative: Right upper extremity splint. General Extremity: Negative for edema Skin no rashes or lesions noted General Skin Exam: no breakdown Psych affect normal Appearance: appropriate Results Lab / Micro Data Labs: Laboratory Results - last 24 hr 03/02/21 16:51: POC Glucose 102 Assessment & Plan Assessment/Plan (1) Debility: (2) Fracture of lower end of right humerus: QUALIFIERS: Encounter type: subsequent encounter Fracture align ment: displaced Fracture healing: with routine healing Fracture morphology: other fracture Fracture type: closed Qualified Code(s): S42.491D - Other displaced fracture of lower end of right humerus, subsequent encounter for fracture with routine healing (3) S/P ORIF (open reduction internal fixation) fracture: (4) Insomnia: (5) Atrial fibrillation: (6) Hypertension: (7) Edema: (8) Diabetes mellitus: (9) Hyperlipidemia: (10) Overactive bladder: (11) Iron deficiency anemia: (12) Depression: PLAN: 71 year old female with below past medical history hospitalized ORIF right distal humerus fracture 02/26/[address] Guy, here for rehabili tation, strengthening, prior to discharge home alone. * Debility - PT/OT. * Pain - Tylenol 1000mg Q8H, Tramadol 50mg Q6H, Oxycodone 5-10mg Q6H prn pain (6-10). * Bowel - Miralax 17gm daily, Senna/colace 2 tablets twice daily, Dulcolax 10mg daily PRN. * Adult immunization - Administer prevnar 13, pneumovax 23, fluzone, covid19 vaccine as appropriate. * DVT prophylaxis - Not necessary, on eliquis. * Hypertension - Metoprolol 50mg bid, Losartan 50mg twice daily, Amlodipine 10mg daily. * Hyperlipidemia - Atorvastatin 10mg QHS. * Calcium deficiency - Calcium D 500mg twice daily. * Vitamin D deficiency - D3 25mcg twice daily. * Iron deficiency anemia - Ferrous sulfate 325mg daily. * Edema - Lasix 40mg bid. * Diabetes Mellitus II - Metformin 1000mg bid, Tradjenta 5mg daily, Gilmepiride 2mg bid. * Anxiety - Ativan 0.5mg Q6H prn, stable chronic fpc use, GDR not recommended. * Insomnia - Melatonin 10mg qhs prn. * Skin irritation - Calmoseptine topical twice daily. * Nutrition - MVI daily. * Tinea Corporis - Nystatin powder topical twice daily. * Depression - Sertraline 200mg daily, stable chronic fpc use, GDR not recommended. * Overactive bladder - Tolterodine 4mg daily.
[2021-03-02] MEDS: Nystatin Powder 15gm Bottle 1 APPLIC TOPICAL (21:11)
[2021-03-02] MEDS: Menthol/Lanolin/Calamine/Znox 113 GM Tube 1 APPLIC TOPICAL (21:12)
[2021-03-02] MEDS: Bisacodyl 5 MG Tablet 10 MG PO (21:13)
[2021-03-02] MEDS: Acetaminophen 500 MG Tablet 1000 MG PO (21:14)
[2021-03-02] MEDS: Atorvastatin Calcium 10 MG Tablet PO (21:14)
[2021-03-02] MEDS: Senna/Docusate Sodium 1 Tablet 2 TABLET PO (21:18)
[2021-03-02 21:30] LABS: Bedside Glucose 121 mg/dL (70-110)
[2021-03-03] MEDS: traMADol 50 MG Tablet PO ×4 (02:59→22:36)
[2021-03-03] MEDS: amLODIPine 10 MG Tablet PO (06:02)
[2021-03-03] MEDS: Acetaminophen 500 MG Tablet 1000 MG PO ×3 (06:02→22:37)
[2021-03-03] MEDS: Cholecalciferol (VIT D3) 25 MCG TABLET (1,000 UNITS) PO ×2 (06:02→17:18)
[2021-03-03] MEDS: APIXABAN 5 MG TABLET PO ×2 (06:02→17:16)
[2021-03-03] MEDS: Losartan Potassium 50 MG Tablet PO ×2 (06:02→17:15)
[2021-03-03] MEDS: Tolterodine Tartrate 4 MG CAP.SA PO (06:02)
[2021-03-03] MEDS: Furosemide 40 MG Tablet PO (06:02)
[2021-03-03] MEDS: Calcium (Elemental) 500 MG Tablet PO ×2 (06:02→17:17)
[2021-03-03] MEDS: LINAGLIPTIN 5 MG TABLET PO (06:02)
[2021-03-03] MEDS: Sertraline 100 MG Tablet 200 MG PO (06:02)
[2021-03-03 06:03] LABS: Absolute Lymphocyte Count 1.26 X10^3/uL (0.83-4.51); Absolute Neutrophil Count 5.9 X10^3/uL (2.0-7.7); Basophil# 0.04 X10^3/uL; Basophil% 0.5 % (0-1); Eosinophil# 0.38 X10^3/uL; Eosinophils% 4.6 % (0-5); Hematocrit 28.5 % (37-47); Hemoglobin 8.6 g/dL (12.0-15.0); Lymphocyte # 1.26 X10^3/ul (0.83-4.51); Lymphocyte % 15.4 % (19-41); Mean Corp Hgb Conc 30.2 g/dL (32-36); Mean Corpuscular Hgb 26.5 pg (27.0-32.0); Mean Platelet Vol. 9.7 fl (6.2-12.0); Monocyte# 0.51 X10^3/uL; Monocyte% 6.2 % (0-10); NRBC Flagged by Analyzer 0 % (0-5); Neutrophil # 5.92 X10^3/uL (2.7-7.7); Neutrophil % 72.3 % (47-70); Platelet Count 290 K/mm3 (150-450); RBC Distribution Width CV 14.4 % (11.6-14.6); RBC Distribution Width SD 46.5 fl (35.1-43.9); Red Blood Count 3.24 M/mm3 (4.2-5.4); White Blood Count 8.2 K/mm3 (4.4-11.0)
[2021-03-03] MEDS: Menthol/Lanolin/Calamine/Znox 113 GM Tube 1 APPLIC TOPICAL ×2 (06:03→17:16)
[2021-03-03] MEDS: Nystatin Powder 15gm Bottle 1 APPLIC TOPICAL ×2 (06:03→17:20)
[2021-03-03] MEDS: Senna/Docusate Sodium 1 Tablet 2 TABLET PO ×2 (06:03→17:17)
[2021-03-03 06:04] VITALS: BP 150/73; PULSE 77
[2021-03-03] MEDS: Metoprolol Tartrate 50 MG Tablet PO ×2 (06:04→17:18)
[2021-03-03 06:33] LABS: Anion Gap 6 (5-15); BUN 35 mg/dL (7-18); BUN/Creat Ratio 30.7 RATIO (10-20); Calcium,Total 9.4 mg/dL (8.5-10.1); Chloride 104 mmol/L (98-107); Creatinine, Serum 1.14 mg/dL (0.55-1.02); EST Glomerular Filtration Rate 50 mL/min (>60); Est Glom Filt Rate - Afr Amer 61 mL/min (>60); Estimated Creatinine Clearance 35.15 ml/min; Glucose 57 mg/dL (74-106); Sodium Level 137 mmol/L (136-145)
[2021-03-03 06:36] LABS: Bedside Glucose 56 mg/dL (70-110)
[2021-03-03 08:35] LABS: Bedside Glucose 90 mg/dL (70-110)
[2021-03-03] MEDS: Ferrous Sulfate 325 MG Tablet PO (08:55)
[2021-03-03] MEDS: metFORMIN HCl 1,000 MG Tablet 1000 MG PO ×2 (08:55→17:16)
[2021-03-03] MEDS: Multivitamins,Therapeutic Tablet 1 TABLET PO (08:55)
[2021-03-03] MEDS: Glimepiride 1 MG Tablet PO ×2 (08:56→17:16)
[2021-03-03 11:00] VITALS: BP 121/60; PULSE 77; RESP 18; TEMP 36.6; O2SAT 90
[2021-03-03 11:40] LABS: Bedside Glucose 141 mg/dL (70-110)
--- NOTE | 2021-03-03 12:02 | PCM.PN.RX ---
Progress Note - Pharmacy Subjective: TCU Admission Objective: Allergies fosinopril [From Monopril] Allergy (Unknown, Verified 02/26/21 12:56) unknown oxycodone Adverse Reaction (Verified 02/26/21 12:57) Other HALLUCINATIONS pioglitazone Adverse Reaction (Verified 02/26/21 12:56) Other Current Medications Generic Name Dose Route Start Last Admin Trade Name Freq PRN Reason Stop Dose Admin Acetaminophen 1,000 mg 03/02/21 22:00 03/03/21 06:02 Acetaminophen 500 Mg Tablet PO 1,000 mg Q8 ROSALIND Administration Amlodipine Besylate 10 mg 03/03/21 06:00 03/03/21 06:02 Amlodipine 10 Mg Tablet PO 10 mg DAILY ROSALIND Administration Apixaban 5 mg 03/02/21 18:00 03/03/21 06:02 Apixaban 5 Mg Tablet PO 5 mg BID ROSALIND Administration Atorvastatin Calcium 10 mg 03/02/21 22:00 03/02/21 21:14 Atorvastatin Calcium 10 Mg Tablet PO 10 mg QHS ROSALIND Administration Bisacodyl 10 mg 03/02/21 17:27 03/02/21 21:13 Bisacodyl 5 Mg Tablet PO 10 mg DAILY PRN Administration Constipation Calamine/Phenol 1 applic 03/02/21 18:00 03/03/21 06:03 Menthol/Lanolin/Calamine/Znox 113 Gm Tube TOPICAL 1 applic BID ROSALIND Administration Protocol Calcium Carbonate 500 mg 03/02/21 18:00 03/03/21 06:02 Calcium (Elemental) 500 Mg Tablet PO 500 mg BID ROSALIND Administration Cholecalciferol 25 mcg 03/02/21 18:00 03/03/21 06:02 Cholecalciferol (Vit D3) 25 Mcg Tablet (1,000 Units) PO 25 mcg BID ROSALIND Administration Ferrous Sulfate 325 mg 03/03/21 08:00 03/03/21 08:55 Ferrous Sulfate 325 Mg Tablet PO 325 mg DAILYCM ROSALIND Administration Furosemide 40 mg 03/03/21 06:00 03/03/21 06:02 Furosemide 40 Mg Tablet PO 40 mg DAILY ROSALIND Administration Glimepiride 1 mg 03/03/21 08:15 03/03/21 08:56 Glimepiride 1 Mg Tablet PO 1 mg BIDCM ROSALIND Administration Linagliptin 5 mg 03/03/21 06:00 03/03/21 06:02 Linagliptin 5 Mg Tablet PO 5 mg DAILY ROSALIND Administration Lorazepam 0.5 mg 03/02/21 14:10 Lorazepam 0.5 Mg Tablet PO Q6H PRN PRN ANXIETY Losartan Potassium 50 mg 03/02/21 18:00 03/03/21 06:02 Losartan Potassium 50 Mg Tablet PO 50 mg BID ROSALIND Administration Melatonin 10 mg 03/02/21 14:50 Melatonin 10 Mg Tablet PO QHS PRN Sleep Metformin HCl 1,000 mg 03/02/21 17:00 03/03/21 08:55 Metformin Hcl 1,000 Mg Tablet PO 1,000 mg BIDCM ROSALIND Administration Metoprolol Tartrate 50 mg 03/02/21 18:00 03/03/21 06:04 Metoprolol Tartrate 50 Mg Tablet PO 50 mg BID ROSALIND Administration Multivitamins 1 tablet 03/03/21 08:00 03/03/21 08:55 Multivitamins,Therapeutic Tablet PO 1 tablet DAILYCM ROSALIND Administration Nystatin 1 applic 03/02/21 18:00 03/03/21 06:03 Nystatin Powder 15gm Bottle TOPICAL 1 applic BID ROSALIND Administration Protocol Oxycodone HCl 5 - 10 mg 03/02/21 14:10 Oxycodone 5 Mg Tablet PO Q6H PRN PRN pain 1-10 Polyethylene Glycol 17 gm 03/02/21 18:00 03/03/21 06:03 Polyethylene Glycol 3350 17 Gm Packet PO Not Given BID ROSALIND Senna/Docusate Sodium 2 tablet 03/02/21 18:00 03/03/21 06:03 Senna/Docusate Sodium 1 Tablet PO 2 tablet BID ROSALIND Administration Sertraline HCl 200 mg 03/03/21 06:00 03/03/21 06:02 Sertraline 100 Mg Tablet PO 200 mg DAILY ROSALIND Administration Tolterodine Tartrate 4 mg 03/03/21 06:00 03/03/21 06:02 Tolterodine Tartrate 4 Mg Cap.Sa PO 4 mg DAILY ROSALIND Administration Tramadol HCl 50 mg 03/02/21 14:15 03/03/21 08:59 Tramadol 50 Mg Tablet PO 50 mg Q6H ROSALIND Administration Tuberculin PPD 0.1 ml 03/10/21 10:00 Tuberculin,Purif.Prot.Deriv. 50 Tu/Ml Vial ID 03/10/21 10:01 X1 ONE Problem List (Last Reviewed 03/02/21 @ 20:[address] Mg Ramirez MD) Depression (Acute) Iron deficiency anemia (Acute) Overactive bladder (Acute) Hyperlipidemia (Acute) Diabetes mellitus (Acute) Edema (Acute) Hypertension (Chronic) Atrial fibrillation (Acute) Insomnia (Acute) Debility (Acute) S/P ORIF (open reduction internal fixation) fracture (Acute) Fracture of lower end of right humerus (Acute) Vital Signs Temp Pulse Resp BP Pulse Ox 97.5 F L 77 18 150/73 H 92 03/02/21 13:51 03/03/21 06:04 03/02/21 13:51 03/03/21 06:04 03/02/21 13:51 Oxygen Delivery Method Room Air Weight: 97.211 kg Body Mass Index (BMI) 40.4 Sodium 137 mmol/L (136-145) 03/03/21 05:23 Potassium 4.0 mmol/L (3.5-5.1) 03/03/21 05:23 Chloride 104 mmol/L (98-107) 03/03/21 05:23 Carbon Dioxide 27.0 mmol/L (21.0-32.0) 03/03/21 05:23 Anion Gap 6 (5-15) 03/03/21 05:23 BUN 35 mg/dL (7-18) H 03/03/21 05:23 Creatinine 1.14 mg/dL (0.55-1.02) H 03/03/21 05:23 Est GFR (MDRD) Af Amer 61 mL/min (>60) 03/03/21 05:23 Est GFR (MDRD) Non-Af 50 mL/min (>60) L 03/03/21 05:23 BUN/Creatinine Ratio 30.7 RATIO (10-20) H 03/03/21 05:23 Glucose 57 mg/dL (74-106) L 03/03/21 05:23 Assessment/Plan: 1. Pain: acetaminophen 1000mg PO Q8, tramadol 50mg PO Q6H and oxycodone 5-10mg PO Q6H PRN pain 1-10. Please continue to monitor for increased pain, PRN usage, renal function, constipation and respiratory depression. 2. Hypertension/atrial fibrillation: metoprolol tartrate 50mg PO BID, losartan 50mg PO BID, amlodipine 10mg PO daily and apixaban 5mg PO BID. Please continue to monitor BP (last 150/73), HR (last 77), renal function, potassium, swelling, S/S of bleeding and hemoglobin (last 8.6g/dL). 3. Hyperlipidemia: atorvastatin 10mg PO QHS. Please continue to monitor lipid panel (last 12/10/20) and for muscle pain. 4. Iron deficiency anemia: ferrous sulfate 325mg PO DAILYCM. Please continue to monitor hemoglobin, constipation and for dark stools. 5. Edema: furosemide 40mg PO daily. Please continue to monitor for edema, potassium (last 4 mmol/L) and sodium (last 137mmol/L). 6. Diabetes mellitus II: metformin 1000mg PO BIDCM, linagliptin 5mg PO daily and glimepiride 1mg PO BIDCM. Please continue to monitor for S/S of hypoglycemia, renal function, hemoglobin A1c (last 6.3% 02/26/21) and glucose (last 141 mg/dL). 7. Overactive bladder: tolterodine 4mg PO daily. Please continue to monitor for anticholinergic side effects and hypotension. 8. Insomnia: melatonin 10mg PO QHS PRN sleep. Please continue to monitor PRN usage. 9. Nutrition/calcium deficiency/vitamin D deficiency: multivitamin 1T PO DAILYCM, calcium carbonate 500mg PO DAILYCM, and cholecalciferol 25mcg PO BID. Please continue to monitor calcium levels (last 9.5mg/dL) and vitamin D levels (last 01/27/21). Psychotropic Medications: 1. Depression: sertraline 200mg PO daily. Please see physician note regarding GDR. 2. Anxiety: lorazepam 0.5mg PO Q6H PRN anxiety. Please see physician note regarding GDR. Unnecessary Medications: None Bowel Regimen: Miralax 17gm PO BID, senna/docusate 2T PO BID and bisacodyl 10mg PO daily PRN constipation. Please continue to monitor for constipation and PRN usage. Date of Note:: 03/03/21
[2021-03-03 17:06] LABS: Bedside Glucose 135 mg/dL (70-110)
[2021-03-03 17:18] VITALS: PULSE 77
[2021-03-03 22:06] LABS: Bedside Glucose 141 mg/dL (70-110)
[2021-03-03] MEDS: Atorvastatin Calcium 10 MG Tablet PO (22:41)
[2021-03-04] MEDS: traMADol 50 MG Tablet PO ×3 (05:09→18:04)
[2021-03-04] MEDS: Sertraline 100 MG Tablet 200 MG PO (05:10)
[2021-03-04] MEDS: LINAGLIPTIN 5 MG TABLET PO (05:11)
[2021-03-04] MEDS: amLODIPine 10 MG Tablet PO (05:11)
[2021-03-04] MEDS: APIXABAN 5 MG TABLET PO ×2 (05:12→18:01)
[2021-03-04] MEDS: Cholecalciferol (VIT D3) 25 MCG TABLET (1,000 UNITS) PO ×2 (05:12→18:00)
[2021-03-04] MEDS: Calcium (Elemental) 500 MG Tablet PO ×2 (05:12→18:01)
[2021-03-04] MEDS: Furosemide 40 MG Tablet PO (05:12)
[2021-03-04] MEDS: Losartan Potassium 50 MG Tablet PO ×2 (05:12→18:01)
[2021-03-04] MEDS: Tolterodine Tartrate 4 MG CAP.SA PO (05:12)
[2021-03-04] MEDS: Acetaminophen 500 MG Tablet 1000 MG PO ×3 (05:20→21:01)
[2021-03-04] MEDS: Senna/Docusate Sodium 1 Tablet 2 TABLET PO ×2 (05:20→18:00)
[2021-03-04 05:24] VITALS: BP 122/63; PULSE 74
[2021-03-04] MEDS: Metoprolol Tartrate 50 MG Tablet PO ×2 (05:24→18:01)
[2021-03-04] MEDS: Nystatin Powder 15gm Bottle 1 APPLIC TOPICAL ×2 (05:29→18:02)
[2021-03-04] MEDS: Menthol/Lanolin/Calamine/Znox 113 GM Tube 1 APPLIC TOPICAL ×2 (05:29→18:01)
[2021-03-04 06:46] LABS: Bedside Glucose 58 mg/dL (70-110)
[2021-03-04] MEDS: Multivitamins,Therapeutic Tablet 1 TABLET PO (08:06)
[2021-03-04] MEDS: metFORMIN HCl 1,000 MG Tablet 1000 MG PO ×2 (08:06→18:01)
[2021-03-04] MEDS: Ferrous Sulfate 325 MG Tablet PO (08:06)
[2021-03-04 12:10] LABS: Bedside Glucose 95 mg/dL (70-110)
[2021-03-04 15:57] VITALS: BP 135/54; PULSE 75; RESP 18; TEMP 36.4; O2SAT 95
[2021-03-04 16:46] LABS: Bedside Glucose 170 mg/dL (70-110)
[2021-03-04 18:01] VITALS: PULSE 75
[2021-03-04] MEDS: Atorvastatin Calcium 10 MG Tablet PO (21:00)
[2021-03-04 21:15] VITALS: PULSE 72; RESP 16; O2SAT 92
[2021-03-04 21:45] LABS: Bedside Glucose 121 mg/dL (70-110)
[2021-03-05 05:03] VITALS: BP 149/75; PULSE 75
[2021-03-05] MEDS: Polyethylene Glycol 3350 17 GM PACKET PO (05:04)
[2021-03-05 05:05] VITALS: PULSE 75
[2021-03-05] MEDS: Cholecalciferol (VIT D3) 25 MCG TABLET (1,000 UNITS) PO ×2 (05:05→17:38)
[2021-03-05] MEDS: Metoprolol Tartrate 50 MG Tablet PO ×2 (05:05→17:38)
[2021-03-05] MEDS: Senna/Docusate Sodium 1 Tablet 2 TABLET PO ×2 (05:05→17:38)
[2021-03-05] MEDS: Losartan Potassium 50 MG Tablet PO ×2 (05:05→17:38)
[2021-03-05] MEDS: APIXABAN 5 MG TABLET PO ×2 (05:06→17:38)
[2021-03-05] MEDS: amLODIPine 10 MG Tablet PO (05:06)
[2021-03-05] MEDS: Sertraline 100 MG Tablet 200 MG PO (05:06)
[2021-03-05] MEDS: LINAGLIPTIN 5 MG TABLET PO (05:06)
[2021-03-05] MEDS: Calcium (Elemental) 500 MG Tablet PO ×2 (05:06→17:38)
[2021-03-05] MEDS: Nystatin Powder 15gm Bottle 1 APPLIC TOPICAL ×2 (05:07→17:39)
[2021-03-05] MEDS: Furosemide 40 MG Tablet PO (05:07)
[2021-03-05] MEDS: Acetaminophen 500 MG Tablet 1000 MG PO ×3 (05:07→21:50)
[2021-03-05] MEDS: Tolterodine Tartrate 4 MG CAP.SA PO (05:07)
[2021-03-05] MEDS: Menthol/Lanolin/Calamine/Znox 113 GM Tube 1 APPLIC TOPICAL ×2 (05:07→17:38)
[2021-03-05] MEDS: traMADol 50 MG Tablet PO ×3 (05:09→17:38)
[2021-03-05 05:43] LABS: Hematocrit 27.8 % (37-47); Hemoglobin 8.7 g/dL (12.0-15.0)
[2021-03-05 06:26] LABS: Bedside Glucose 92 mg/dL (70-110)
[2021-03-05] MEDS: metFORMIN HCl 1,000 MG Tablet 1000 MG PO ×2 (08:26→17:38)
[2021-03-05] MEDS: Multivitamins,Therapeutic Tablet 1 TABLET PO (08:26)
[2021-03-05] MEDS: Ferrous Sulfate 325 MG Tablet PO (08:26)
[2021-03-05 10:00] VITALS: PULSE 72; RESP 18; O2SAT 94
[2021-03-05 15:47] VITALS: BP 109/56; PULSE 77; RESP 16; TEMP 37; O2SAT 95
--- NOTE | 2021-03-05 15:54 | CASEMGMT ---
Social Work Insurance next reveiw date is 03/12/21 with expected d/c on 03/19/21. SW met with pt and informed of this. Pt expressing understanding. SW inquiring about d/c plan. Pt is hopeful that she will be able to return home alone after two weeks of therapy, but if not, pt is agreeable to go to [facility] under Medicaid until able to return home. SW will continue to follow and assist with discharge planning as pt progresses with therapy. MARGOT Gayle
[2021-03-05 17:38] VITALS: PULSE 77
[2021-03-05 19:11] LABS: Bedside Glucose 130 mg/dL (70-110)
[2021-03-05 21:36] LABS: Bedside Glucose 117 mg/dL (70-110)
[2021-03-05] MEDS: Atorvastatin Calcium 10 MG Tablet PO (21:50)
[2021-03-05 22:00] LABS: Bedside Glucose 107 mg/dL (70-110)
[2021-03-06] MEDS: traMADol 50 MG Tablet PO ×4 (00:33→17:55)
[2021-03-06 06:21] LABS: Bedside Glucose 104 mg/dL (70-110)
[2021-03-06] MEDS: Losartan Potassium 50 MG Tablet PO ×2 (06:59→17:50)
[2021-03-06] MEDS: APIXABAN 5 MG TABLET PO ×2 (06:59→17:49)
[2021-03-06] MEDS: Furosemide 40 MG Tablet PO (07:00)
[2021-03-06] MEDS: Calcium (Elemental) 500 MG Tablet PO ×2 (07:00→17:51)
[2021-03-06] MEDS: Cholecalciferol (VIT D3) 25 MCG TABLET (1,000 UNITS) PO ×2 (07:00→17:53)
[2021-03-06] MEDS: Tolterodine Tartrate 4 MG CAP.SA PO (07:00)
[2021-03-06] MEDS: LINAGLIPTIN 5 MG TABLET PO (07:00)
[2021-03-06] MEDS: Sertraline 100 MG Tablet 200 MG PO (07:00)
[2021-03-06] MEDS: Acetaminophen 500 MG Tablet 1000 MG PO ×3 (07:01→21:37)
[2021-03-06] MEDS: Senna/Docusate Sodium 1 Tablet 2 TABLET PO ×2 (07:02→17:52)
[2021-03-06] MEDS: Nystatin Powder 15gm Bottle 1 APPLIC TOPICAL ×2 (07:05→17:56)
[2021-03-06] MEDS: amLODIPine 10 MG Tablet PO (07:06)
[2021-03-06 07:07] VITALS: BP 152/65; PULSE 69
[2021-03-06] MEDS: Metoprolol Tartrate 50 MG Tablet PO ×2 (07:07→17:50)
[2021-03-06] MEDS: Menthol/Lanolin/Calamine/Znox 113 GM Tube 1 APPLIC TOPICAL ×2 (07:09→17:56)
[2021-03-06] MEDS: Ferrous Sulfate 325 MG Tablet PO (08:08)
[2021-03-06] MEDS: metFORMIN HCl 1,000 MG Tablet 1000 MG PO ×2 (08:09→17:50)
[2021-03-06] MEDS: Multivitamins,Therapeutic Tablet 1 TABLET PO (08:09)
[2021-03-06 11:16] LABS: Bedside Glucose 110 mg/dL (70-110)
--- NOTE | 2021-03-06 13:27 | CASEMGMT ---
Social Work BIMS and PHQ9 interviews completed on this date for MDS assessment. MARGOT Gayle
[2021-03-06 15:18] VITALS: BP 115/62; PULSE 78; RESP 15; TEMP 37.2; O2SAT 90
[2021-03-06 16:25] LABS: Bedside Glucose 138 mg/dL (70-110)
[2021-03-06 17:50] VITALS: PULSE 78
[2021-03-06] MEDS: Atorvastatin Calcium 10 MG Tablet PO (21:37)
[2021-03-06] MEDS: LORazepam 0.5 MG Tablet PO (21:44)
[2021-03-06 21:55] LABS: Bedside Glucose 148 mg/dL (70-110)
[2021-03-07 06:24] VITALS: BP 134/64; PULSE 66
[2021-03-07] MEDS: Metoprolol Tartrate 50 MG Tablet PO ×2 (06:24→17:09)
[2021-03-07] MEDS: Sertraline 100 MG Tablet 200 MG PO (06:25)
[2021-03-07] MEDS: amLODIPine 10 MG Tablet PO (06:25)
[2021-03-07] MEDS: Acetaminophen 500 MG Tablet 1000 MG PO ×3 (06:25→20:52)
[2021-03-07] MEDS: APIXABAN 5 MG TABLET PO ×2 (06:25→17:09)
[2021-03-07] MEDS: Senna/Docusate Sodium 1 Tablet 2 TABLET PO ×2 (06:25→17:09)
[2021-03-07] MEDS: Cholecalciferol (VIT D3) 25 MCG TABLET (1,000 UNITS) PO ×2 (06:25→17:09)
[2021-03-07] MEDS: Losartan Potassium 50 MG Tablet PO ×2 (06:25→17:08)
[2021-03-07] MEDS: LINAGLIPTIN 5 MG TABLET PO (06:25)
[2021-03-07] MEDS: Tolterodine Tartrate 4 MG CAP.SA PO (06:25)
[2021-03-07] MEDS: Calcium (Elemental) 500 MG Tablet PO ×2 (06:25→17:09)
[2021-03-07] MEDS: Furosemide 40 MG Tablet PO (06:25)
[2021-03-07] MEDS: Menthol/Lanolin/Calamine/Znox 113 GM Tube 1 APPLIC TOPICAL ×2 (06:27→17:09)
[2021-03-07] MEDS: Nystatin Powder 15gm Bottle 1 APPLIC TOPICAL ×2 (06:27→20:52)
[2021-03-07 06:30] LABS: Bedside Glucose 167 mg/dL (70-110)
[2021-03-07] MEDS: traMADol 50 MG Tablet PO ×4 (06:30→23:58)
[2021-03-07] MEDS: metFORMIN HCl 1,000 MG Tablet 1000 MG PO ×2 (08:10→17:08)
[2021-03-07] MEDS: Multivitamins,Therapeutic Tablet 1 TABLET PO (08:10)
[2021-03-07] MEDS: Ferrous Sulfate 325 MG Tablet PO (08:11)
[2021-03-07 10:58] VITALS: PULSE 69; RESP 18; O2SAT 97
[2021-03-07 11:20] LABS: Bedside Glucose 204 mg/dL (70-110)
[2021-03-07 16:00] VITALS: BP 143/71; PULSE 71; RESP 16; TEMP 36.3; O2SAT 94
[2021-03-07 17:09] VITALS: PULSE 71
[2021-03-07 17:11] LABS: Bedside Glucose 122 mg/dL (70-110)
[2021-03-07] MEDS: Atorvastatin Calcium 10 MG Tablet PO (20:52)
[2021-03-07 21:46] LABS: Bedside Glucose 172 mg/dL (70-110)
[2021-03-08 06:31] LABS: Bedside Glucose 100 mg/dL (70-110)
[2021-03-08 06:43] VITALS: BP 148/76; PULSE 71
[2021-03-08] MEDS: Furosemide 40 MG Tablet PO (06:43)
[2021-03-08] MEDS: Cholecalciferol (VIT D3) 25 MCG TABLET (1,000 UNITS) PO ×2 (06:43→17:19)
[2021-03-08] MEDS: Tolterodine Tartrate 4 MG CAP.SA PO (06:43)
[2021-03-08] MEDS: Metoprolol Tartrate 50 MG Tablet PO ×2 (06:43→17:19)
[2021-03-08] MEDS: APIXABAN 5 MG TABLET PO ×2 (06:43→17:20)
[2021-03-08] MEDS: amLODIPine 10 MG Tablet PO (06:43)
[2021-03-08] MEDS: Acetaminophen 500 MG Tablet 1000 MG PO ×3 (06:43→21:22)
[2021-03-08] MEDS: LINAGLIPTIN 5 MG TABLET PO (06:43)
[2021-03-08] MEDS: Calcium (Elemental) 500 MG Tablet PO ×2 (06:44→17:19)
[2021-03-08] MEDS: Sertraline 100 MG Tablet 200 MG PO (06:44)
[2021-03-08] MEDS: Losartan Potassium 50 MG Tablet PO ×2 (06:44→17:19)
[2021-03-08] MEDS: Menthol/Lanolin/Calamine/Znox 113 GM Tube 1 APPLIC TOPICAL ×2 (06:47→17:21)
[2021-03-08] MEDS: Nystatin Powder 15gm Bottle 1 APPLIC TOPICAL ×2 (06:47→20:00)
[2021-03-08] MEDS: metFORMIN HCl 1,000 MG Tablet 1000 MG PO ×2 (08:26→17:19)
[2021-03-08] MEDS: Ferrous Sulfate 325 MG Tablet PO (08:27)
[2021-03-08] MEDS: Multivitamins,Therapeutic Tablet 1 TABLET PO (08:27)
[2021-03-08] MEDS: traMADol 50 MG Tablet PO ×2 (11:31→17:19)
[2021-03-08 11:35] LABS: Bedside Glucose 167 mg/dL (70-110)
[2021-03-08 15:53] VITALS: BP 128/59; PULSE 73; RESP 16; TEMP 36.4; O2SAT 93
[2021-03-08 16:51] LABS: Bedside Glucose 164 mg/dL (70-110)
[2021-03-08 17:19] VITALS: PULSE 73
--- NOTE | 2021-03-08 21:09 | NURSING ---
contacted via telephone regarding patient request to decrease ultram frequency, new order d/c scheduled Utram and change to PRN, new order received for AM only accuchecks
[2021-03-08 21:21] LABS: Bedside Glucose 157 mg/dL (70-110)
[2021-03-08] MEDS: Atorvastatin Calcium 10 MG Tablet PO (21:22)
[2021-03-08] MEDS: MELATONIN 10 MG TABLET PO (21:22)
[2021-03-09] MEDS: traMADol 50 MG Tablet PO ×2 (00:05→08:58)
[2021-03-09] MEDS: Acetaminophen 500 MG Tablet 1000 MG PO ×3 (05:50→20:50)
[2021-03-09 05:51] VITALS: BP 136/62; PULSE 67
[2021-03-09] MEDS: Senna/Docusate Sodium 1 Tablet 2 TABLET PO ×2 (05:51→17:10)
[2021-03-09] MEDS: APIXABAN 5 MG TABLET PO ×2 (05:51→17:10)
[2021-03-09] MEDS: Sertraline 100 MG Tablet 200 MG PO (05:51)
[2021-03-09] MEDS: Losartan Potassium 50 MG Tablet PO ×2 (05:51→17:10)
[2021-03-09] MEDS: Metoprolol Tartrate 50 MG Tablet PO ×2 (05:51→17:10)
[2021-03-09] MEDS: LINAGLIPTIN 5 MG TABLET PO (05:51)
[2021-03-09] MEDS: Cholecalciferol (VIT D3) 25 MCG TABLET (1,000 UNITS) PO ×2 (05:51→17:12)
[2021-03-09] MEDS: Tolterodine Tartrate 4 MG CAP.SA PO (05:51)
[2021-03-09] MEDS: amLODIPine 10 MG Tablet PO (05:51)
[2021-03-09] MEDS: Calcium (Elemental) 500 MG Tablet PO ×2 (05:51→17:10)
[2021-03-09] MEDS: Furosemide 40 MG Tablet PO (05:51)
[2021-03-09] MEDS: Menthol/Lanolin/Calamine/Znox 113 GM Tube 1 APPLIC TOPICAL ×2 (05:54→17:11)
[2021-03-09] MEDS: Nystatin Powder 15gm Bottle 1 APPLIC TOPICAL ×2 (05:54→17:11)
[2021-03-09 06:21] LABS: Bedside Glucose 147 mg/dL (70-110)
[2021-03-09] MEDS: Multivitamins,Therapeutic Tablet 1 TABLET PO (08:00)
[2021-03-09] MEDS: metFORMIN HCl 1,000 MG Tablet 1000 MG PO ×2 (08:00→17:10)
[2021-03-09] MEDS: Ferrous Sulfate 325 MG Tablet PO (08:00)
[2021-03-09 10:00] VITALS: PULSE 66; RESP 18; O2SAT 97
[2021-03-09 16:00] VITALS: BP 136/64; PULSE 72; RESP 18; TEMP 36.7; O2SAT 92
[2021-03-09 17:10] VITALS: PULSE 72
[2021-03-09] MEDS: Atorvastatin Calcium 10 MG Tablet PO (20:50)
[2021-03-09] MEDS: MELATONIN 10 MG TABLET PO (21:10)
[2021-03-10 05:32] LABS: Absolute Lymphocyte Count 1.54 X10^3/uL (0.83-4.51); Absolute Neutrophil Count 5.2 X10^3/uL (2.0-7.7); Basophil# 0.03 X10^3/uL; Basophil% 0.4 % (0-1); Eosinophil# 0.28 X10^3/uL; Eosinophils% 3.7 % (0-5); Hematocrit 30.6 % (37-47); Hemoglobin 9.4 g/dL (12.0-15.0); Lymphocyte # 1.54 X10^3/ul (0.83-4.51); Lymphocyte % 20.1 % (19-41); Mean Corp Hgb Conc 30.7 g/dL (32-36); Mean Corpuscular Hgb 26.7 pg (27.0-32.0); Mean Corpuscular Volume 86.9 fL (81-99); Mean Platelet Vol. 9.4 fl (6.2-12.0); Monocyte# 0.58 X10^3/uL; Monocyte% 7.6 % (0-10); NRBC Flagged by Analyzer 0 % (0-5); Neutrophil # 5.18 X10^3/uL (2.7-7.7); Neutrophil % 67.5 % (47-70); Platelet Count 274 K/mm3 (150-450); RBC Distribution Width CV 14.4 % (11.6-14.6); RBC Distribution Width SD 45.6 fl (35.1-43.9); Red Blood Count 3.52 M/mm3 (4.2-5.4); White Blood Count 7.7 K/mm3 (4.4-11.0)
[2021-03-10 06:14] LABS: Anion Gap 8 (5-15); BUN 30 mg/dL (7-18); BUN/Creat Ratio 25.6 RATIO (10-20); Calcium,Total 9.4 mg/dL (8.5-10.1); Chloride 103 mmol/L (98-107); Creatinine, Serum 1.17 mg/dL (0.55-1.02); EST Glomerular Filtration Rate 49 mL/min (>60); Est Glom Filt Rate - Afr Amer 59 mL/min (>60); Estimated Creatinine Clearance 34.24 ml/min; Glucose 133 mg/dL (74-106); Potassium 4.1 mmol/L (3.5-5.1); Sodium Level 138 mmol/L (136-145)
[2021-03-10 06:15] LABS: Bedside Glucose 135 mg/dL (70-110)
[2021-03-10] MEDS: Losartan Potassium 50 MG Tablet PO ×2 (06:40→17:51)
[2021-03-10] MEDS: Senna/Docusate Sodium 1 Tablet 2 TABLET PO ×2 (06:40→17:51)
[2021-03-10] MEDS: amLODIPine 10 MG Tablet PO (06:40)
[2021-03-10 06:41] VITALS: BP 159/77; PULSE 63
[2021-03-10] MEDS: Cholecalciferol (VIT D3) 25 MCG TABLET (1,000 UNITS) PO ×2 (06:41→17:51)
[2021-03-10] MEDS: APIXABAN 5 MG TABLET PO ×2 (06:41→17:52)
[2021-03-10] MEDS: LINAGLIPTIN 5 MG TABLET PO (06:41)
[2021-03-10] MEDS: Furosemide 40 MG Tablet PO (06:41)
[2021-03-10] MEDS: Metoprolol Tartrate 50 MG Tablet PO ×2 (06:41→17:51)
[2021-03-10] MEDS: Acetaminophen 500 MG Tablet 1000 MG PO ×3 (06:41→19:51)
[2021-03-10] MEDS: Tolterodine Tartrate 4 MG CAP.SA PO (06:41)
[2021-03-10] MEDS: Sertraline 100 MG Tablet 200 MG PO (06:42)
[2021-03-10] MEDS: Calcium (Elemental) 500 MG Tablet PO ×2 (06:42→17:51)
[2021-03-10] MEDS: Menthol/Lanolin/Calamine/Znox 113 GM Tube 1 APPLIC TOPICAL ×2 (06:43→17:52)
[2021-03-10] MEDS: Nystatin Powder 15gm Bottle 1 APPLIC TOPICAL ×2 (06:43→17:52)
[2021-03-10 07:04] VITALS: BP 157/77; PULSE 63
[2021-03-10] MEDS: Ferrous Sulfate 325 MG Tablet PO (08:07)
[2021-03-10] MEDS: metFORMIN HCl 1,000 MG Tablet 1000 MG PO ×2 (08:07→17:51)
[2021-03-10] MEDS: Multivitamins,Therapeutic Tablet 1 TABLET PO (08:08)
[2021-03-10] MEDS: traMADol 50 MG Tablet PO (08:12)
--- NOTE | 2021-03-10 12:16 | CASEMGMT ---
Addendum entered by Parul Haq 03/10/21 16:45: [facility] is out of network with [facility], thus pt would have no access to Part B services and until pt is fully approved for [facility]U[employer], they would not offer therapy services. Pt denied admitting there. [facility] can accept pt but requiring payment up front since [facility] is not fully approved or if pt wanted to disenroll from [facility] and enroll in traditional Medicare they could skill her until [employer] is approved. Explained to pt. Pt does not want to disenroll from [facility]. Pt unsure how much money she has in her bank accounts, but her sister Kim has access to accounts. Asked pt if she could ask Kim for the information prior to care plan meeting for to assist with planning - pt agreeable. Have not received return call from [facility] at this time. Will continue to follow. Original Note: Social Work Insurance update NRD 03/12 and continued stay is not guaranteed. Referrals sent to [facility], [facility]. Care plan meeting tomorrow. Will continue to follow for discharge planning. Parul Haq, SIMÓN KAYW
--- NOTE | 2021-03-10 13:55 | NURSING ---
Pt refused TB test that is required by [facility]. Educated pt on why we have to test for TB pt still refused. Updated Josefina and she stated we will have to do the Quantum Gold test if pt refuses the TB test. Updated pt and pt agreed to do Quantum Gold. Will update Dr. Ramirez.
[2021-03-10 15:00] VITALS: BP 133/67; PULSE 100; RESP 20; TEMP 35.7; O2SAT 94
--- NOTE | 2021-03-10 17:26 | NURSING ---
THIS NURSE GAVE THE PT THE BOOSTER SHOT MODERNA IN LEFT DELT. PT TOLERATED WELL. WILL CONTINUE TO MONITOR.
[2021-03-10 17:51] VITALS: BP 129/67; PULSE 72
[2021-03-10 19:45] VITALS: BP 151/71; PULSE 71; RESP 18; TEMP 36.8; O2SAT 96
[2021-03-10] MEDS: Atorvastatin Calcium 10 MG Tablet PO (19:52)
[2021-03-10] MEDS: MELATONIN 10 MG TABLET PO (21:09)
[2021-03-11 06:25] LABS: Bedside Glucose 139 mg/dL (70-110)
[2021-03-11] MEDS: Calcium (Elemental) 500 MG Tablet PO ×2 (06:33→17:24)
[2021-03-11] MEDS: Furosemide 40 MG Tablet PO (06:33)
[2021-03-11] MEDS: Sertraline 100 MG Tablet 200 MG PO (06:33)
[2021-03-11] MEDS: Senna/Docusate Sodium 1 Tablet 2 TABLET PO ×2 (06:33→17:24)
[2021-03-11] MEDS: Cholecalciferol (VIT D3) 25 MCG TABLET (1,000 UNITS) PO ×2 (06:33→17:24)
[2021-03-11] MEDS: APIXABAN 5 MG TABLET PO ×2 (06:33→17:25)
[2021-03-11] MEDS: Tolterodine Tartrate 4 MG CAP.SA PO (06:33)
[2021-03-11] MEDS: amLODIPine 10 MG Tablet PO (06:34)
[2021-03-11] MEDS: Losartan Potassium 50 MG Tablet PO ×2 (06:34→17:24)
[2021-03-11] MEDS: Acetaminophen 500 MG Tablet 1000 MG PO ×3 (06:34→20:46)
[2021-03-11] MEDS: LINAGLIPTIN 5 MG TABLET PO (06:34)
[2021-03-11 06:37] VITALS: BP 121/59; PULSE 71
[2021-03-11] MEDS: Metoprolol Tartrate 50 MG Tablet PO ×2 (06:37→17:24)
[2021-03-11] MEDS: Menthol/Lanolin/Calamine/Znox 113 GM Tube 1 APPLIC TOPICAL ×2 (06:41→17:25)
[2021-03-11] MEDS: Nystatin Powder 15gm Bottle 1 APPLIC TOPICAL ×2 (06:42→17:25)
[2021-03-11 06:49] VITALS: BP 121/59; PULSE 71; RESP 16; TEMP 36.1; O2SAT 95
[2021-03-11] MEDS: Ferrous Sulfate 325 MG Tablet PO (08:20)
[2021-03-11] MEDS: metFORMIN HCl 1,000 MG Tablet 1000 MG PO ×2 (08:20→17:24)
[2021-03-11] MEDS: Multivitamins,Therapeutic Tablet 1 TABLET PO (08:20)
[2021-03-11 16:08] VITALS: BP 119/69; PULSE 79; RESP 20; TEMP 36.3; O2SAT 94
--- NOTE | 2021-03-11 16:26 | CASEMGMT ---
Social Work Followed up with [facility] - resent referral. Left message for outcome. IDT met with patient and sister, Nakul, via conference call for care plan meeting. Explained [facility] insurance with NRD 03/12 and continued stay is not guaranteed. Pt has f/u appt with surgeon today and see if pt is healing well. The goal remains to go to SNF until pt receives ROM and strength back in arm to assist with ADLs. SW to continue to assist with DC plans. Parul Haq, MEDICAL AND SCIENTIFIC ILLUSTRATOR SECRETARY SPECIALIST
[2021-03-11 17:24] VITALS: BP 119/69; PULSE 79
[2021-03-11] MEDS: traMADol 50 MG Tablet PO (20:40)
[2021-03-11] MEDS: MELATONIN 10 MG TABLET PO (20:41)
[2021-03-11] MEDS: Atorvastatin Calcium 10 MG Tablet PO (20:46)
[2021-03-12] MEDS: Losartan Potassium 50 MG Tablet PO ×2 (06:10→16:55)
[2021-03-12] MEDS: Furosemide 40 MG Tablet PO (06:10)
[2021-03-12] MEDS: Sertraline 100 MG Tablet 200 MG PO (06:10)
[2021-03-12] MEDS: Tolterodine Tartrate 4 MG CAP.SA PO (06:10)
[2021-03-12] MEDS: Calcium (Elemental) 500 MG Tablet PO ×2 (06:10→16:55)
[2021-03-12] MEDS: amLODIPine 10 MG Tablet PO (06:10)
[2021-03-12] MEDS: LINAGLIPTIN 5 MG TABLET PO (06:11)
[2021-03-12] MEDS: Cholecalciferol (VIT D3) 25 MCG TABLET (1,000 UNITS) PO ×2 (06:11→16:56)
[2021-03-12] MEDS: APIXABAN 5 MG TABLET PO ×2 (06:11→16:55)
[2021-03-12] MEDS: Acetaminophen 500 MG Tablet 1000 MG PO ×3 (06:12→21:21)
[2021-03-12] MEDS: Nystatin Powder 15gm Bottle 1 APPLIC TOPICAL ×2 (06:13→22:26)
[2021-03-12 06:14] VITALS: BP 161/82; PULSE 69
[2021-03-12] MEDS: Menthol/Lanolin/Calamine/Znox 113 GM Tube 1 APPLIC TOPICAL ×2 (06:14→16:55)
[2021-03-12] MEDS: Metoprolol Tartrate 50 MG Tablet PO ×2 (06:14→16:54)
[2021-03-12 06:26] LABS: Bedside Glucose 129 mg/dL (70-110)
[2021-03-12 06:53] VITALS: BP 161/82; PULSE 69
[2021-03-12] MEDS: Ferrous Sulfate 325 MG Tablet PO (08:13)
[2021-03-12] MEDS: Multivitamins,Therapeutic Tablet 1 TABLET PO (08:13)
[2021-03-12] MEDS: metFORMIN HCl 1,000 MG Tablet 1000 MG PO ×2 (08:13→16:54)
--- NOTE | 2021-03-12 08:28 | CASEMGMT ---
Addendum entered by Parul Haq 03/12/21 11:26: [facility] accepted pt. Insurance approved with NRD 03/16, EDC 03/19. Updated pt - pt agreeable. Updated CC. Spoke with sister, Kim, per pt request. Original Note: Social Work Received call from [facility] - they can accept pt. Provided MCDP# [id number]. Faxed [facility] application to [facility], per their request. Updated pt. Will continue to follow. Parul Haq, SMIÓN ASSISTANT PROFESSOR OF NURSING
[2021-03-12] MEDS: traMADol 50 MG Tablet PO (12:46)
--- NOTE | 2021-03-12 12:50 | MDS.RN ---
Information for the mds was obtained from review of the clinical record, interview of resident, staff, and direct observation of resident's care.
[2021-03-12 13:39] VITALS: BP 132/77; PULSE 73; RESP 16; TEMP 36.3; O2SAT 96
[2021-03-12 16:54] VITALS: PULSE 73
[2021-03-12] MEDS: Senna/Docusate Sodium 1 Tablet 2 TABLET PO (16:54)
[2021-03-12] MEDS: Atorvastatin Calcium 10 MG Tablet PO (21:21)
[2021-03-12] MEDS: MELATONIN 10 MG TABLET PO (21:22)
[2021-03-12 21:40] VITALS: PULSE 72; RESP 18; O2SAT 95
[2021-03-13] MEDS: Tolterodine Tartrate 4 MG CAP.SA PO (06:22)
[2021-03-13] MEDS: amLODIPine 10 MG Tablet PO (06:22)
[2021-03-13] MEDS: Calcium (Elemental) 500 MG Tablet PO ×2 (06:22→17:08)
[2021-03-13] MEDS: Cholecalciferol (VIT D3) 25 MCG TABLET (1,000 UNITS) PO ×2 (06:23→17:08)
[2021-03-13] MEDS: Sertraline 100 MG Tablet 200 MG PO (06:23)
[2021-03-13] MEDS: Acetaminophen 500 MG Tablet 1000 MG PO ×3 (06:23→21:20)
[2021-03-13] MEDS: Furosemide 40 MG Tablet PO (06:23)
[2021-03-13] MEDS: LINAGLIPTIN 5 MG TABLET PO (06:23)
[2021-03-13] MEDS: APIXABAN 5 MG TABLET PO ×2 (06:23→17:07)
[2021-03-13] MEDS: Losartan Potassium 50 MG Tablet PO ×2 (06:23→17:08)
[2021-03-13] MEDS: Menthol/Lanolin/Calamine/Znox 113 GM Tube 1 APPLIC TOPICAL ×2 (06:24→17:08)
[2021-03-13] MEDS: Nystatin Powder 15gm Bottle 1 APPLIC TOPICAL ×2 (06:24→17:08)
[2021-03-13 06:26] LABS: Bedside Glucose 153 mg/dL (70-110)
[2021-03-13 06:27] VITALS: BP 145/79; PULSE 70
[2021-03-13] MEDS: Metoprolol Tartrate 50 MG Tablet PO ×2 (06:27→17:07)
[2021-03-13 06:56] VITALS: BP 145/79; PULSE 70
[2021-03-13] MEDS: Ferrous Sulfate 325 MG Tablet PO (08:10)
[2021-03-13] MEDS: metFORMIN HCl 1,000 MG Tablet 1000 MG PO ×2 (08:10→17:07)
[2021-03-13] MEDS: Multivitamins,Therapeutic Tablet 1 TABLET PO (08:11)
[2021-03-13 10:00] VITALS: PULSE 72; RESP 16; O2SAT 93
[2021-03-13 15:26] VITALS: BP 137/70; PULSE 70; RESP 16; TEMP 36.2; O2SAT 94
[2021-03-13 17:07] VITALS: PULSE 70
[2021-03-13] MEDS: Senna/Docusate Sodium 1 Tablet 2 TABLET PO (17:08)
[2021-03-13] MEDS: traMADol 50 MG Tablet PO (17:11)
[2021-03-13] MEDS: Atorvastatin Calcium 10 MG Tablet PO (21:20)
[2021-03-13] MEDS: MELATONIN 10 MG TABLET PO (22:04)
[2021-03-14] MEDS: Menthol/Lanolin/Calamine/Znox 113 GM Tube 1 APPLIC TOPICAL ×2 (04:48→17:28)
[2021-03-14] MEDS: Losartan Potassium 50 MG Tablet PO ×2 (04:49→17:26)
[2021-03-14] MEDS: Tolterodine Tartrate 4 MG CAP.SA PO (04:49)
[2021-03-14 04:50] VITALS: BP 143/74; PULSE 65
[2021-03-14] MEDS: Metoprolol Tartrate 50 MG Tablet PO ×2 (04:50→17:25)
[2021-03-14] MEDS: APIXABAN 5 MG TABLET PO ×2 (04:50→17:25)
[2021-03-14] MEDS: Furosemide 40 MG Tablet PO (04:50)
[2021-03-14] MEDS: Polyethylene Glycol 3350 17 GM PACKET PO (04:51)
[2021-03-14] MEDS: Nystatin Powder 15gm Bottle 1 APPLIC TOPICAL ×2 (04:51→17:28)
[2021-03-14] MEDS: Cholecalciferol (VIT D3) 25 MCG TABLET (1,000 UNITS) PO ×2 (04:52→17:27)
[2021-03-14] MEDS: Senna/Docusate Sodium 1 Tablet 2 TABLET PO ×2 (04:52→17:26)
[2021-03-14] MEDS: amLODIPine 10 MG Tablet PO (04:52)
[2021-03-14] MEDS: Calcium (Elemental) 500 MG Tablet PO ×2 (04:52→17:26)
[2021-03-14] MEDS: Sertraline 100 MG Tablet 200 MG PO (04:53)
[2021-03-14] MEDS: Acetaminophen 500 MG Tablet 1000 MG PO ×3 (04:53→21:04)
[2021-03-14] MEDS: LINAGLIPTIN 5 MG TABLET PO (04:54)
[2021-03-14 06:40] LABS: Bedside Glucose 143 mg/dL (70-110)
[2021-03-14] MEDS: Multivitamins,Therapeutic Tablet 1 TABLET PO (08:09)
[2021-03-14] MEDS: Ferrous Sulfate 325 MG Tablet PO (08:09)
[2021-03-14] MEDS: metFORMIN HCl 1,000 MG Tablet 1000 MG PO ×2 (08:09→17:26)
[2021-03-14 13:48] VITALS: BP 134/89; PULSE 78; RESP 18; TEMP 36.8; O2SAT 96
[2021-03-14 17:25] VITALS: PULSE 78
[2021-03-14] MEDS: MELATONIN 10 MG TABLET PO (21:03)
[2021-03-14] MEDS: Atorvastatin Calcium 10 MG Tablet PO (21:05)
[2021-03-14 21:18] VITALS: PULSE 76; RESP 14; O2SAT 95
[2021-03-15] MEDS: Menthol/Lanolin/Calamine/Znox 113 GM Tube 1 APPLIC TOPICAL ×2 (05:15→17:29)
[2021-03-15] MEDS: Calcium (Elemental) 500 MG Tablet PO ×2 (05:17→17:26)
[2021-03-15] MEDS: APIXABAN 5 MG TABLET PO ×2 (05:17→17:26)
[2021-03-15] MEDS: LINAGLIPTIN 5 MG TABLET PO (05:17)
[2021-03-15] MEDS: Tolterodine Tartrate 4 MG CAP.SA PO (05:17)
[2021-03-15] MEDS: Furosemide 40 MG Tablet PO (05:18)
[2021-03-15] MEDS: amLODIPine 10 MG Tablet PO (05:18)
[2021-03-15] MEDS: Senna/Docusate Sodium 1 Tablet 2 TABLET PO ×2 (05:18→17:27)
[2021-03-15] MEDS: Acetaminophen 500 MG Tablet 1000 MG PO ×3 (05:18→21:07)
[2021-03-15 05:19] VITALS: BP 167/73; PULSE 73
[2021-03-15] MEDS: Cholecalciferol (VIT D3) 25 MCG TABLET (1,000 UNITS) PO ×2 (05:19→17:27)
[2021-03-15] MEDS: Losartan Potassium 50 MG Tablet PO ×2 (05:19→17:26)
[2021-03-15] MEDS: Sertraline 100 MG Tablet 200 MG PO (05:19)
[2021-03-15] MEDS: Metoprolol Tartrate 50 MG Tablet PO ×2 (05:19→17:27)
[2021-03-15] MEDS: Nystatin Powder 15gm Bottle 1 APPLIC TOPICAL ×2 (05:20→17:30)
[2021-03-15] MEDS: Polyethylene Glycol 3350 17 GM PACKET PO (05:20)
[2021-03-15 06:36] LABS: Bedside Glucose 154 mg/dL (70-110)
[2021-03-15] MEDS: Ferrous Sulfate 325 MG Tablet PO (08:32)
[2021-03-15] MEDS: Multivitamins,Therapeutic Tablet 1 TABLET PO (08:32)
[2021-03-15] MEDS: metFORMIN HCl 1,000 MG Tablet 1000 MG PO ×2 (08:32→17:26)
[2021-03-15 13:19] VITALS: BP 116/67; PULSE 73; RESP 16; TEMP 35.9; O2SAT 95
[2021-03-15 17:27] VITALS: PULSE 85
[2021-03-15] MEDS: Atorvastatin Calcium 10 MG Tablet PO (21:07)
[2021-03-15] MEDS: MELATONIN 10 MG TABLET PO (22:32)
[2021-03-16] MEDS: oxyCODONE 5 MG Tablet PO ×2 (00:49→12:29)
[2021-03-16] MEDS: traMADol 50 MG Tablet PO (02:01)
[2021-03-16] MEDS: Sertraline 100 MG Tablet 200 MG PO (05:15)
[2021-03-16] MEDS: Senna/Docusate Sodium 1 Tablet 2 TABLET PO ×2 (05:16→17:08)
[2021-03-16] MEDS: LINAGLIPTIN 5 MG TABLET PO (05:16)
[2021-03-16] MEDS: Cholecalciferol (VIT D3) 25 MCG TABLET (1,000 UNITS) PO ×2 (05:16→17:07)
[2021-03-16 05:17] VITALS: BP 154/81; PULSE 75
[2021-03-16] MEDS: Losartan Potassium 50 MG Tablet PO ×2 (05:17→17:08)
[2021-03-16] MEDS: Acetaminophen 500 MG Tablet 1000 MG PO ×3 (05:17→21:44)
[2021-03-16] MEDS: amLODIPine 10 MG Tablet PO (05:17)
[2021-03-16] MEDS: Tolterodine Tartrate 4 MG CAP.SA PO (05:17)
[2021-03-16] MEDS: APIXABAN 5 MG TABLET PO ×2 (05:17→17:08)
[2021-03-16] MEDS: Metoprolol Tartrate 50 MG Tablet PO ×2 (05:17→17:07)
[2021-03-16] MEDS: Furosemide 40 MG Tablet PO (05:17)
[2021-03-16] MEDS: Nystatin Powder 15gm Bottle 1 APPLIC TOPICAL ×2 (05:18→17:09)
[2021-03-16] MEDS: Menthol/Lanolin/Calamine/Znox 113 GM Tube 1 APPLIC TOPICAL ×2 (05:18→17:08)
[2021-03-16] MEDS: Calcium (Elemental) 500 MG Tablet PO ×2 (05:19→17:07)
[2021-03-16 06:41] LABS: Bedside Glucose 178 mg/dL (70-110)
[2021-03-16] MEDS: Ferrous Sulfate 325 MG Tablet PO (08:10)
[2021-03-16] MEDS: Multivitamins,Therapeutic Tablet 1 TABLET PO (08:10)
[2021-03-16] MEDS: metFORMIN HCl 1,000 MG Tablet 1000 MG PO ×2 (08:10→17:08)
--- NOTE | 2021-03-16 14:11 | NURSING ---
Sister, Kim, updated on current COVID status on the unit.
[2021-03-16 16:00] VITALS: BP 117/59; PULSE 81; RESP 18; TEMP 36.3; O2SAT 94
--- NOTE | 2021-03-16 16:57 | CASEMGMT ---
Social Work Insurance issued LCD 03/18, DC 03/19. Confirmed with pt plan is MCDP to [facility]. Pt agreeable. Spoke with [facility] - confirmed admit. Will complete PASRR and LOC. Pt to call friend to transport. Plan: DC to [facility] 03/19, nonskilled/intermediate, part B therapies Parul Haq, SEPTIC TANK INSTALLER EDGE STAINER MACHINE
[2021-03-16 17:07] VITALS: PULSE 841
--- NOTE | 2021-03-16 19:53 | PCM.DC.SUM ---
Providers Date of Admission: 03/02/21 Primary Care Physician: Dr. Sulma Reagan MD Reason For Visit: RIGHT HUMERUS FRACTURE Diagnosis Discharge Diagnosis (1) Debility: Status: Acute Code(s): R53.81 - Other malaise (2) Fracture of lower end of right humerus: Status: Acute Code(s): S42.401A - Unspecified fracture of lower end of right humerus, initial encounter for closed fracture Qualifiers: Encounter type: subsequent encounter Fracture type: closed Fracture morphology: other fracture Fracture alignment: displaced Fracture healing: with routine healing Qualified Code(s): S42.491D - Other displaced fracture of lower end of right humerus, subsequent encounter for fracture with routine healing (3) S/P ORIF (open reduction internal fixation) fracture: Status: Acute Code(s): Z98.890 - Other specified postprocedural states; Z87.81 - Personal history of (healed) traumatic fracture (4) Insomnia: Status: Acute Code(s): G47.00 - Insomnia, unspecified (5) Atrial fibrillation: Status: Acute Code(s): I48.91 - Unspecified atrial fibrillation (6) Hypertension: Status: Chronic Code(s): I10 - Essential (primary) hypertension (7) Edema: Status: Acute Code(s): R60.9 - Edema, unspecified (8) Diabetes mellitus: Status: Acute Code(s): E11.9 - Type 2 diabetes mellitus without complications (9) Hyperlipidemia: Status: Acute Code(s): E78.5 - Hyperlipidemia, unspecified (10) Overactive bladder: Status: Acute Code(s): N32.81 - Overactive bladder (11) Iron deficiency anemia: Status: Acute Code(s): D50.9 - Iron deficiency anemia, unspecified (12) Depression: Status: Acute Code(s): F32.A - Depression, unspecified Medications at Discharge Home Medications melatonin 10 mg capsule 10 mg PO HS PRN 07/07/20 apixaban 5 mg tablet 5 mg PO BID #180 tab 10/20/20 amlodipine 10 mg tablet 10 mg PO DAILY #90 tab 12/01/20 losartan 50 mg tablet 50 mg PO BID #180 tab 12/01/20 simvastatin 20 mg tablet 20 mg PO QHS #90 tab 12/01/20 glimepiride 2 mg tablet 2 mg PO BID #180 tab 12/12/20 metoprolol tartrate 50 mg tablet 50 mg PO BID #60 tab 12/12/20 oxybutynin chloride 15 mg tablet,extended release 24 hr 15 mg PO DAILY #90 tab 01/22/21 sertraline [Zoloft] 200 mg PO DAILY 01/26/21 Januvia 100 mg PO DAILY 01/27/21 ferrous sulfate 325 mg PO DAILY 01/27/21 furosemide 40 mg PO DAILY 01/27/21 metformin 1,000 mg PO BID 01/27/21 acetaminophen 1,000 mg PO Q6H PRN PRN #0 tab 02/17/21 lorazepam 0.5 mg PO Q6H PRN PRN 7 Days #28 tab 02/17/21 calcium 600 mg PO BID 02/25/21 cholecalciferol (vitamin D3) [Vitamin D3] 25 mcg PO BID 02/25/21 multivitamin 1 cap PO DAILY 02/25/21 oxycodone 5 - 10 mg PO Q6H PRN PRN 7 Days #28 tab 03/01/21 acetaminophen 1,000 mg PO Q8 MDD 3000 mg 03/02/21 tramadol 50 mg PO Q6H 03/02/21 acetaminophen 1,000 mg PO Q8 #0 tab 03/16/21 bisacodyl 10 mg PO DAILY PRN #0 tab 03/16/21 menthol-zinc oxide [Calmoseptine] 1 applic TOPICAL BID #0 g 03/16/21 nystatin [Nyamyc] 1 applic TOPICAL BID #0 g 03/16/21 oxycodone 5 - 10 mg PO Q6H PRN PRN 3 Days #24 tab 03/16/21 polyethylene glycol 3350 17 g PO BID #0 ea 03/16/21 sennosides-docusate sodium [Stool Softener-Stimulant Laxat] 2 tab PO BID #0 tab 03/16/21 tramadol 50 mg PO Q6H PRN PRN 3 Days #12 tab 03/16/21 Hospital Course Operations - (ORIF right distal humerus fracture.) Procedures None Summary of Care Provided Minutes Spent on Discharge: 35 Hospital Course: 71 year old female with below past medical history hospitalized ORIF right distal humerus fracture 02/26/[address] Guy, here for rehabilitation, strengthening, prior to discharge home alone. Discharge to [facility] 03/19/2021, nonskilled/intermediate, part B therapies. Physical Exam Const alert and oriented x3 General Appearance: cooperative HEENT normocephalic Eyes PERRL and EOMs intact bilaterally Neck supple, no JVD and no carotid bruits Resp normal respiratory effort, normal air movement and clear to auscultation bilaterally Cardio regular rate and regular rhythm GI normal to inspection, nondistended, normoactive bowel sounds, non-tender and non-distended Extremity normal capillary refill General Extremity: Negative for edema Skin no rashes or lesions noted General Skin Exam: no breakdown Psych affect normal Appearance: appropriate Weight / BMI Weight Weight: 95.736 kg Body Mass Index (BMI) 40.4 ABG / Lab / Microbiology Data Result Diagrams: 03/10/21 05:15 03/10/21 05:15 Laboratory: Laboratory Results - last 24 hr 03/16/21 06:30: POC Glucose 178 H D/C Instructions Discharge Diet: No restrictions Discharge Activity: Return to Normal Activity, May Shower and Use Walker Weight Bearing Status: Partial weight bearing (Right upper extremity.) Call your doctor if you observe: Fever of 101 or Higher, Inability to urinate, Inability to have a bowel movement, Shortness of breath, Dizziness, Fainting spells, Swelling in the ankles, Chest pain and Uncontrolled pain Additional Instructions: Discharge to [facility] 03/19/2021, nonskilled/intermediate, part B therapies. Please Follow Up With: Micky Guy DO When: As scheduled. Meaningful Use Info Meaningful Use Diagnoses (Choose all that apply): None applicable Discharge Plan Admission Admit Date/Time: 03/02/21 13:29 Primary Reason for Your Visit: Debility. Attending Provider: Mg Ramirez Chi Primary Care Provider: Sulma Reagan Instructions Additional Instructions / Restrictions: Discharge to [facility] 03/19/2021, nonskilled/intermediate, part B therapies. Discharge Orders/Prescriptions Prescriptions: New polyethylene glycol 3350 17 gram Powder In Packet 17 g PO BID Qty: 0 RF: 0 sennosides-docusate sodium [Stool Softener-Stimulant Laxat] 8.6-50 mg Tablet 2 tab PO BID Qty: 0 RF: 0 tramadol 50 mg Tablet 50 mg PO Q6H PRN PRN (Reason: Pain Score 1-6) 3 Days Qty: 12 RF: 0 acetaminophen 500 mg Tablet 1,000 mg PO Q8 Qty: 0 RF: 0 bisacodyl 5 mg Tablet,Delayed Release (Dr/Ec) 10 mg PO DAILY PRN (Reason: Constipation) Qty: 0 RF: 0 nystatin [Nyamyc] 100,000 unit/gram Powder 1 applic topical BID Qty: 0 RF: 0 oxycodone 5 mg Tablet 5 - 10 mg PO Q6H PRN PRN (Reason: pain 7-10) 3 Days Qty: 24 RF: 0 menthol-zinc oxide [Calmoseptine] 0.44-20.6 % Ointment 1 applic topical BID Qty: 0 RF: 0 Continued melatonin 10 mg capsule 10 mg PO HS PRN (Reason: Sleep) RF: 0 sertraline [Zoloft] 100 mg tablet 200 mg PO DAILY RF: 0 furosemide 40 mg tablet 40 mg PO DAILY RF: 0 ferrous sulfate 325 mg (65 mg iron) tablet 325 mg PO DAILY RF: 0 metformin 1,000 mg tablet 1,000 mg PO BID RF: 0 Januvia 100 mg tablet 100 mg PO DAILY RF: 0 calcium 600 mg Capsule 600 mg PO BID RF: 0 multivitamin Capsule 1 cap PO DAILY RF: 0 cholecalciferol (vitamin D3) [Vitamin D3] 25 mcg (1,000 unit) Tablet,Chewable 25 mcg PO BID RF: 0 apixaban 5 mg tablet 5 mg PO BID Qty: 180 RF: 3 amlodipine 10 mg tablet 10 mg PO DAILY Qty: 90 RF: 3 losartan 50 mg tablet 50 mg PO BID Qty: 180 RF: 3 simvastatin 20 mg tablet 20 mg PO QHS Qty: 90 RF: 3 metoprolol tartrate 50 mg tablet 50 mg PO BID Qty: 60 RF: 1 oxybutynin chloride 15 mg tablet extended release 24hr 15 mg PO DAILY Qty: 90 RF: 1 No Action acetaminophen 500 mg Tablet 1,000 mg PO Q6H PRN PRN (Reason: Pain Score 1-3) Qty: 0 RF: 0 lorazepam 0.5 mg Tablet 0.5 mg PO Q6H PRN PRN (Reason: Anxiety) 7 Days Qty: 28 RF: 0 oxycodone 5 mg Tablet 5 - 10 mg PO Q6H PRN PRN (Reason: pain 1-10) 7 Days Qty: 28 RF: 0 tramadol 50 mg tablet 50 mg PO Q6H RF: 0 acetaminophen 500 mg tablet 1,000 mg PO Q8 MDD 3000 mg RF: 0 glimepiride 2 mg tablet 2 mg PO BID Qty: 180 RF: 3 Referrals / Follow Up: Sulma Reagan MD [Primary Care Provider] - Disposition Disposition (needs filled in before D/C Order can be placed): NonSkilled NH/Intermed Care
--- NOTE | 2021-03-16 20:03 | PCM.TXEXTCAR ---
Diet 03/03/21 13:06 Diet: Regular - General Is pt able to select menu?: Yes Diet Comments: Cut food into bite size pieces-ok if sandwich/finger food;built up utensils Routine Orders/Code Status Code Status: DNRCC-A (With intubation.) Wound(s) LEFT MIDDLE FINGER: Wound Type: SCABS LOWER LEFT LEG: Wound Type: SCABS RIGHT UPPER ARM: Wound Type: SCABS Dressing Change: Dry Sterile Dressing RIGHT ELBOW/UPPER,LOWER ARM: Wound Type: Surgical Incision Dressing Change: Dry Sterile Dressing Therapies Weight Bearing: Partial weight bearing Extremity Affected:: Right Upper Physical Therapy: Eval and Treat Occupational Therapy: Eval and Treat Problem/Diagnosis (1) Debility: Status: Acute (2) Fracture of lower end of right humerus: Status: Acute (3) S/P ORIF (open reduction internal fixation) fracture: Status: Acute Comment: Dry sterile dressing changes daily Ok to shower POD#4 (4) Insomnia: Status: Acute (5) Atrial fibrillation: Status: Acute (6) Hypertension: Status: Chronic (7) Edema: Status: Acute (8) Diabetes mellitus: Status: Acute (9) Hyperlipidemia: Status: Acute (10) Overactive bladder: Status: Acute (11) Iron deficiency anemia: Status: Acute (12) Depression: Status: Acute Allergies/Procedures Done in Hospital Allergies fosinopril [From Monopril] Allergy (Unknown, Verified 02/26/21 12:56) unknown oxycodone Adverse Reaction (Verified 02/26/21 12:57) Other HALLUCINATIONS pioglitazone Adverse Reaction (Verified 02/26/21 12:56) Other Procedures: - (ORIF right distal humerus fracture.) Type of Care/Length of Stay Estimated LOS: More Than 30 Days Type of Care Needed: Intermediate Rehab Potential: Good Prognosis: Good Additional Orders/Day of Discharge Day of Discharge: 03/19/21 Dietary and Speech Recommendations Dietitian Recommendations/Changes: regular diet w/ cut up foods per Res request Follow Up Care Please Follow Up With: Micky Guy DO When: 2 weeks Please Follow Up With: Sulma Reagan MD Discharge Plan Admission Admit Date/Time: 03/02/21 13:29 Primary Reason for Your Visit: Debility. Attending Provider: Mg Ramirez Chi Primary Care Provider: Sulma Reagan Instructions Additional Instructions / Restrictions: Discharge to [facility] 03/19/2021, nonskilled/intermediate, part B therapies. Discharge Orders/Prescriptions Prescriptions: New polyethylene glycol 3350 17 gram Powder In Packet 17 g PO BID Qty: 0 RF: 0 sennosides-docusate sodium [Stool Softener-Stimulant Laxat] 8.6-50 mg Tablet 2 tab PO BID Qty: 0 RF: 0 tramadol 50 mg Tablet 50 mg PO Q6H PRN PRN (Reason: Pain Score 1-6) 3 Days Qty: 12 RF: 0 acetaminophen 500 mg Tablet 1,000 mg PO Q8 Qty: 0 RF: 0 bisacodyl 5 mg Tablet,Delayed Release (Dr/Ec) 10 mg PO DAILY PRN (Reason: Constipation) Qty: 0 RF: 0 nystatin [Nyamyc] 100,000 unit/gram Powder 1 applic topical BID Qty: 0 RF: 0 oxycodone 5 mg Tablet 5 - 10 mg PO Q6H PRN PRN (Reason: pain 7-10) 3 Days Qty: 24 RF: 0 menthol-zinc oxide [Calmoseptine] 0.44-20.6 % Ointment 1 applic topical BID Qty: 0 RF: 0 Continued melatonin 10 mg capsule 10 mg PO HS PRN (Reason: Sleep) RF: 0 sertraline [Zoloft] 100 mg tablet 200 mg PO DAILY RF: 0 furosemide 40 mg tablet 40 mg PO DAILY RF: 0 ferrous sulfate 325 mg (65 mg iron) tablet 325 mg PO DAILY RF: 0 metformin 1,000 mg tablet 1,000 mg PO BID RF: 0 Januvia 100 mg tablet 100 mg PO DAILY RF: 0 calcium 600 mg Capsule 600 mg PO BID RF: 0 multivitamin Capsule 1 cap PO DAILY RF: 0 cholecalciferol (vitamin D3) [Vitamin D3] 25 mcg (1,000 unit) Tablet,Chewable 25 mcg PO BID RF: 0 apixaban 5 mg tablet 5 mg PO BID Qty: 180 RF: 3 amlodipine 10 mg tablet 10 mg PO DAILY Qty: 90 RF: 3 losartan 50 mg tablet 50 mg PO BID Qty: 180 RF: 3 simvastatin 20 mg tablet 20 mg PO QHS Qty: 90 RF: 3 metoprolol tartrate 50 mg tablet 50 mg PO BID Qty: 60 RF: 1 oxybutynin chloride 15 mg tablet extended release 24hr 15 mg PO DAILY Qty: 90 RF: 1 No Action acetaminophen 500 mg Tablet 1,000 mg PO Q6H PRN PRN (Reason: Pain Score 1-3) Qty: 0 RF: 0 lorazepam 0.5 mg Tablet 0.5 mg PO Q6H PRN PRN (Reason: Anxiety) 7 Days Qty: 28 RF: 0 oxycodone 5 mg Tablet 5 - 10 mg PO Q6H PRN PRN (Reason: pain 1-10) 7 Days Qty: 28 RF: 0 tramadol 50 mg tablet 50 mg PO Q6H RF: 0 acetaminophen 500 mg tablet 1,000 mg PO Q8 MDD 3000 mg RF: 0 glimepiride 2 mg tablet 2 mg PO BID Qty: 180 RF: 3 Referrals / Follow Up: Sulma Reagan MD [Primary Care Provider] - Disposition Disposition (needs filled in before D/C Order can be placed): NonSkilled NH/Intermed Care
[2021-03-16] MEDS: LORazepam 0.5 MG Tablet PO (21:43)
[2021-03-16] MEDS: Atorvastatin Calcium 10 MG Tablet PO (21:44)
--- NOTE | 2021-03-16 22:43 | NURSING ---
CPAP unit turned on and assisted pt w/ mask placement. Positioned in bed for comfort. OBT and call light w/ in reach.
[2021-03-17 06:00] LABS: Absolute Lymphocyte Count 1.72 X10^3/uL (0.83-4.51); Absolute Neutrophil Count 5.7 X10^3/uL (2.0-7.7); Basophil# 0.04 X10^3/uL; Basophil% 0.5 % (0-1); Eosinophil# 0.33 X10^3/uL; Hematocrit 31.9 % (37-47); Hemoglobin 9.5 g/dL (12.0-15.0); Lymphocyte # 1.72 X10^3/ul (0.83-4.51); Lymphocyte % 20.7 % (19-41); Mean Corp Hgb Conc 29.8 g/dL (32-36); Mean Corpuscular Hgb 26.1 pg (27.0-32.0); Mean Corpuscular Volume 87.6 fL (81-99); Mean Platelet Vol. 9.6 fl (6.2-12.0); Monocyte# 0.48 X10^3/uL; Monocyte% 5.8 % (0-10); NRBC Flagged by Analyzer 0 % (0-5); Neutrophil # 5.69 X10^3/uL (2.7-7.7); Neutrophil % 68.4 % (47-70); Platelet Count 336 K/mm3 (150-450); RBC Distribution Width CV 14.4 % (11.6-14.6); RBC Distribution Width SD 46.5 fl (35.1-43.9); Red Blood Count 3.64 M/mm3 (4.2-5.4); White Blood Count 8.3 K/mm3 (4.4-11.0)
[2021-03-17] MEDS: Cholecalciferol (VIT D3) 25 MCG TABLET (1,000 UNITS) PO ×2 (06:01→17:57)
[2021-03-17] MEDS: LINAGLIPTIN 5 MG TABLET PO (06:01)
[2021-03-17] MEDS: Senna/Docusate Sodium 1 Tablet 2 TABLET PO ×2 (06:01→17:27)
[2021-03-17] MEDS: Calcium (Elemental) 500 MG Tablet PO ×2 (06:01→17:26)
[2021-03-17] MEDS: amLODIPine 10 MG Tablet PO (06:01)
[2021-03-17] MEDS: Sertraline 100 MG Tablet 200 MG PO (06:01)
[2021-03-17] MEDS: Furosemide 40 MG Tablet PO (06:02)
[2021-03-17] MEDS: Tolterodine Tartrate 4 MG CAP.SA PO (06:02)
[2021-03-17] MEDS: APIXABAN 5 MG TABLET PO ×2 (06:02→17:26)
[2021-03-17] MEDS: Acetaminophen 500 MG Tablet 1000 MG PO ×3 (06:02→21:03)
[2021-03-17] MEDS: Menthol/Lanolin/Calamine/Znox 113 GM Tube 1 APPLIC TOPICAL ×2 (06:02→17:27)
[2021-03-17] MEDS: Losartan Potassium 50 MG Tablet PO ×2 (06:02→17:27)
[2021-03-17 06:03] VITALS: BP 146/72; PULSE 71
[2021-03-17] MEDS: Metoprolol Tartrate 50 MG Tablet PO ×2 (06:03→17:26)
[2021-03-17 06:05] LABS: Bedside Glucose 141 mg/dL (70-110)
[2021-03-17] MEDS: Nystatin Powder 15gm Bottle 1 APPLIC TOPICAL ×2 (06:07→17:27)
[2021-03-17 06:44] LABS: Anion Gap 7 (5-15); BUN 37 mg/dL (7-18); BUN/Creat Ratio 28.5 RATIO (10-20); Calcium,Total 9.4 mg/dL (8.5-10.1); Chloride 101 mmol/L (98-107); EST Glomerular Filtration Rate 43 mL/min (>60); Est Glom Filt Rate - Afr Amer 52 mL/min (>60); Estimated Creatinine Clearance 30.82 ml/min; Glucose 134 mg/dL (74-106); Potassium 4.1 mmol/L (3.5-5.1); Sodium Level 137 mmol/L (136-145)
[2021-03-17] MEDS: metFORMIN HCl 1,000 MG Tablet 1000 MG PO ×2 (08:03→17:27)
[2021-03-17] MEDS: Multivitamins,Therapeutic Tablet 1 TABLET PO (08:03)
[2021-03-17] MEDS: Ferrous Sulfate 325 MG Tablet PO (08:03)
--- NOTE | 2021-03-17 09:59 | CASEMGMT ---
Addendum entered by Parul Haq 03/17/21 12:18: Received LOC results. Faxed DC information to [facility]. Original Note: Social Work PASRR completed. LOC faxed to [facility]. Parul Haq, SIMÓN KAYW
[2021-03-17 14:25] VITALS: BP 127/85; PULSE 76; RESP 16; TEMP 37.6; O2SAT 96
[2021-03-17] MEDS: traMADol 50 MG Tablet PO ×2 (14:42→23:50)
[2021-03-17 16:08] LABS: QNTFERON TB Mitogen Value > 10.00 IU/mL (.); QNTFERON TB1+ Ag Value 0.37 IU/mL (.); QNTFERON TB2+ Ag Value 0.43 IU/mL (.)
[2021-03-17 16:38] LABS: QNTIFERON TB Positive Criteria Negative (Negative)
[2021-03-17 17:26] VITALS: BP 147/75; PULSE 76
[2021-03-17] MEDS: Atorvastatin Calcium 10 MG Tablet PO (21:03)
[2021-03-17] MEDS: MELATONIN 10 MG TABLET PO (23:50)
[2021-03-18 06:14] VITALS: BP 143/76; PULSE 71
[2021-03-18 06:15] VITALS: PULSE 71
[2021-03-18] MEDS: Furosemide 40 MG Tablet PO (06:15)
[2021-03-18] MEDS: Tolterodine Tartrate 4 MG CAP.SA PO (06:15)
[2021-03-18] MEDS: LINAGLIPTIN 5 MG TABLET PO (06:15)
[2021-03-18] MEDS: Sertraline 100 MG Tablet 200 MG PO (06:15)
[2021-03-18] MEDS: Acetaminophen 500 MG Tablet 1000 MG PO ×3 (06:15→22:19)
[2021-03-18] MEDS: Losartan Potassium 50 MG Tablet PO ×2 (06:15→17:33)
[2021-03-18] MEDS: Metoprolol Tartrate 50 MG Tablet PO ×2 (06:15→17:32)
[2021-03-18] MEDS: Cholecalciferol (VIT D3) 25 MCG TABLET (1,000 UNITS) PO ×2 (06:15→17:33)
[2021-03-18] MEDS: Senna/Docusate Sodium 1 Tablet 2 TABLET PO ×2 (06:15→17:32)
[2021-03-18 06:16] LABS: Bedside Glucose 124 mg/dL (70-110)
[2021-03-18] MEDS: APIXABAN 5 MG TABLET PO ×2 (06:16→17:31)
[2021-03-18] MEDS: Menthol/Lanolin/Calamine/Znox 113 GM Tube 1 APPLIC TOPICAL ×2 (06:16→17:37)
[2021-03-18] MEDS: amLODIPine 10 MG Tablet PO (06:16)
[2021-03-18] MEDS: Calcium (Elemental) 500 MG Tablet PO ×2 (06:16→17:32)
[2021-03-18] MEDS: Nystatin Powder 15gm Bottle 1 APPLIC TOPICAL ×2 (06:17→17:36)
[2021-03-18] MEDS: Multivitamins,Therapeutic Tablet 1 TABLET PO (07:49)
[2021-03-18] MEDS: metFORMIN HCl 1,000 MG Tablet 1000 MG PO ×2 (07:49→17:34)
[2021-03-18] MEDS: Ferrous Sulfate 325 MG Tablet PO (07:49)
--- NOTE | 2021-03-18 08:32 | CASEMGMT ---
Social Work BIMS(13) and PHQ-9(2) completed this date. LONG Alfaro
[2021-03-18 13:23] VITALS: BP 128/66; PULSE 82; RESP 18; TEMP 36.3; O2SAT 96
[2021-03-18 17:32] VITALS: PULSE 72
[2021-03-18] MEDS: Atorvastatin Calcium 10 MG Tablet PO (22:19)
[2021-03-18 22:41] VITALS: PULSE 74; RESP 16; O2SAT 98
[2021-03-18] MEDS: traMADol 50 MG Tablet PO (23:53)
[2021-03-18] MEDS: MELATONIN 10 MG TABLET PO (23:53)
[2021-03-19 06:26] LABS: Bedside Glucose 127 mg/dL (70-110)
[2021-03-19 06:32] VITALS: BP 166/83; PULSE 81
[2021-03-19] MEDS: Acetaminophen 500 MG Tablet 1000 MG PO (06:33)
[2021-03-19] MEDS: LINAGLIPTIN 5 MG TABLET PO (06:34)
[2021-03-19] MEDS: Sertraline 100 MG Tablet 200 MG PO (06:34)
[2021-03-19] MEDS: Cholecalciferol (VIT D3) 25 MCG TABLET (1,000 UNITS) PO (06:34)
[2021-03-19] MEDS: Losartan Potassium 50 MG Tablet PO (06:34)
[2021-03-19] MEDS: Tolterodine Tartrate 4 MG CAP.SA PO (06:34)
[2021-03-19] MEDS: APIXABAN 5 MG TABLET PO (06:34)
[2021-03-19] MEDS: Calcium (Elemental) 500 MG Tablet PO (06:34)
[2021-03-19] MEDS: Senna/Docusate Sodium 1 Tablet 2 TABLET PO (06:34)
[2021-03-19] MEDS: Furosemide 40 MG Tablet PO (06:34)
[2021-03-19 06:35] VITALS: PULSE 81
[2021-03-19] MEDS: amLODIPine 10 MG Tablet PO (06:35)
[2021-03-19] MEDS: Menthol/Lanolin/Calamine/Znox 113 GM Tube 1 APPLIC TOPICAL (06:35)
[2021-03-19] MEDS: Metoprolol Tartrate 50 MG Tablet PO (06:35)
[2021-03-19] MEDS: Nystatin Powder 15gm Bottle 1 APPLIC TOPICAL (06:36)
[2021-03-19 06:56] VITALS: PULSE 81; RESP 16; O2SAT 95
[2021-03-19] MEDS: Ferrous Sulfate 325 MG Tablet PO (07:59)
[2021-03-19] MEDS: metFORMIN HCl 1,000 MG Tablet 1000 MG PO (07:59)
[2021-03-19] MEDS: Multivitamins,Therapeutic Tablet 1 TABLET PO (07:59)
[2021-03-19 10:52] VITALS: BP 144/75; PULSE 74; RESP 18; TEMP 36
== END 2021-03-19 11:15 | DRG 561 ==
PROVIDERS: Admitting Provider Family Medicine Geriatric Medicine; PCP Internal Medicine; Visit Provider Family Medicine Geriatric Medicine
DX: S42.491D Other displaced fracture of lower end of right humerus, subsequent encounter for fracture with routine healing (principal); X58.XXXD Exposure to other specified factors, subsequent encounter; I48.0 Paroxysmal atrial fibrillation; Z23 Encounter for immunization; E11.9 Type 2 diabetes mellitus without complications; I10 Essential (primary) hypertension; E78.5 Hyperlipidemia, unspecified; D50.9 Iron deficiency anemia, unspecified; F32.A Depression, unspecified; F41.9 Anxiety disorder, unspecified; M19.90 Unspecified osteoarthritis, unspecified site; E55.9 Vitamin D deficiency, unspecified; B35.4 Tinea corporis; G47.30 Sleep apnea, unspecified; N32.81 Overactive bladder; Z87.891 Personal history of nicotine dependence; Z79.899 Other long term (current) drug therapy; Z79.01 Long term (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; Z79.84 Long term (current) use of oral hypoglycemic drugs
CPT/HCPCS: 0064A; 36415; 80048; 82962; 85014; 85018; 85025; 86480; 87426; 91301; 97110; 97116; 97162; 97166; 97530; 97535; 97802

== ENCOUNTER → 2021-03-20 05:00 | Outpatient (REF) | payer MEDICARE, SELFPAY ==
[2021-03-20 07:22] LABS: Hematocrit 29.2 % (37-47); Mean Corp Hgb Conc 30.8 g/dL (32-36); Mean Corpuscular Hgb 26.5 pg (27.0-32.0); Mean Corpuscular Volume 86.1 fL (81-99); Mean Platelet Vol. 10.1 fl (6.2-12.0); Platelet Count 296 K/mm3 (150-450); RBC Distribution Width CV 14.3 % (11.6-14.6); RBC Distribution Width SD 44.5 fl (35.1-43.9); Red Blood Count 3.39 M/mm3 (4.2-5.4); White Blood Count 7.5 K/mm3 (4.4-11.0)
[2021-03-20 07:43] LABS: Anion Gap 4 (5-15); BUN 33 mg/dL (7-18); BUN/Creat Ratio 31.7 RATIO (10-20); Calcium,Total 9.3 mg/dL (8.5-10.1); Chloride 106 mmol/L (98-107); Creatinine, Serum 1.04 mg/dL (0.55-1.02); EST Glomerular Filtration Rate 56 mL/min (>60); Est Glom Filt Rate - Afr Amer 68 mL/min (>60); Glucose 139 mg/dL (74-106); Potassium 4.3 mmol/L (3.5-5.1); Sodium Level 137 mmol/L (136-145)
== END ==
LOC: OLS.SW500 05:00
PROVIDERS: PCP Internal Medicine; Visit Provider Family Medicine
DX: I48.91 Unspecified atrial fibrillation (principal); D64.9 Anemia, unspecified; E11.9 Type 2 diabetes mellitus without complications; I10 Essential (primary) hypertension; E78.5 Hyperlipidemia, unspecified
CPT/HCPCS: 36415; 80048; 85027

== ENCOUNTER → 2021-06-16 | Outpatient (REF) | payer MEDICARE, SELFPAY ==
[2021-06-16 08:31] LABS: Erythrocyte Sedimentation Rate 47 mm/hr (0-30)
[2021-06-16 08:34] LABS: Hematocrit 34.1 % (37-47); Hemoglobin 10.7 g/dL (12.0-15.0); Mean Corp Hgb Conc 31.4 g/dL (32-36); Mean Corpuscular Hgb 26.7 pg (27.0-32.0); Mean Platelet Vol. 10.7 fl (6.2-12.0); Platelet Count 265 K/mm3 (150-450); RBC Distribution Width CV 15.2 % (11.6-14.6); RBC Distribution Width SD 47.7 fl (35.1-43.9); Red Blood Count 4.01 M/mm3 (4.2-5.4); White Blood Count 8.5 K/mm3 (4.4-11.0)
[2021-06-16 08:44] LABS: Anion Gap 6 (5-15); BUN 36 mg/dL (7-18); BUN/Creat Ratio 24.8 RATIO (10-20); CPK Total, Creatine Kinase 28 U/L (26-192); CRP 6.37 mg/L (0.0-3.0); Calcium,Total 9.5 mg/dL (8.5-10.1); Chloride 104 mmol/L (98-107); Creatinine, Serum 1.45 mg/dL (0.55-1.02); EST Glomerular Filtration Rate 38 mL/min (>60); Est Glom Filt Rate - Afr Amer 46 mL/min (>60); Glucose 129 mg/dL (74-106); Potassium 4.1 mmol/L (3.5-5.1); Sodium Level 138 mmol/L (136-145)
== END | disposition home or self-care (01) ==
LOC: OLS.SW300 05:00
PROVIDERS: PCP Internal Medicine; Visit Provider Family Medicine
DX: L08.9 Local infection of the skin and subcutaneous tissue, unspecified (principal)
CPT/HCPCS: 36415; 80048; 82550; 85027; 85652; 86140

== ENCOUNTER → 2021-06-19 | Outpatient (REF) | payer MEDICARE, SELFPAY ==
[2021-06-20 08:47] LABS: Color, Urine Yellow (Yellow); Glucose, Dipstick Normal (Normal); Ketone-Dipstick Negative (Negative); Leukocyte Esterase-Dipstick 500 /ul (Negative); Nitrite-Dipstick Positive (Negative); Occult Blood-Urine Negative /ul (Negative); Protein-Dipstick Negative (Negative); Specific Gravity, Urine 1.015 (1.002-1.030); Urine Bilirubin Dipstick Negative (Negative); Urine Clarity Sl. Cloudy (Clear); Urine Urobilinogen Normal (Normal)
== END | disposition home or self-care (01) ==
LOC: OLS.SW300 18:00
PROVIDERS: PCP Internal Medicine; Visit Provider Family Medicine
DX: R35.0 Frequency of micturition (principal)
CPT/HCPCS: 81002; 87077; 87086; 87088; 87186

== ENCOUNTER → 2021-06-23 | Outpatient (REF) | payer MEDICARE, SELFPAY ==
[2021-06-23 08:37] LABS: Erythrocyte Sedimentation Rate 30 mm/hr (0-30)
[2021-06-23 08:39] LABS: Hematocrit 30.7 % (37-47); Hemoglobin 9.8 g/dL (12.0-15.0); Mean Corp Hgb Conc 31.9 g/dL (32-36); Mean Corpuscular Hgb 27.5 pg (27.0-32.0); Mean Platelet Vol. 10.9 fl (6.2-12.0); Platelet Count 230 K/mm3 (150-450); RBC Distribution Width CV 15.4 % (11.6-14.6); RBC Distribution Width SD 48.5 fl (35.1-43.9); Red Blood Count 3.57 M/mm3 (4.2-5.4); White Blood Count 8.1 K/mm3 (4.4-11.0)
[2021-06-23 08:54] LABS: Anion Gap 7 (5-15); BUN 37 mg/dL (7-18); BUN/Creat Ratio 29.8 RATIO (10-20); CPK Total, Creatine Kinase 27 U/L (26-192); CRP 6.62 mg/L (0.0-3.0); Calcium,Total 9.3 mg/dL (8.5-10.1); Chloride 104 mmol/L (98-107); Creatinine, Serum 1.24 mg/dL (0.55-1.02); EST Glomerular Filtration Rate 46 mL/min (>60); Est Glom Filt Rate - Afr Amer 55 mL/min (>60); Glucose 112 mg/dL (74-106); Potassium 3.7 mmol/L (3.5-5.1); Sodium Level 140 mmol/L (136-145)
== END | disposition home or self-care (01) ==
LOC: OLS.SW300 05:00
PROVIDERS: PCP Internal Medicine; Visit Provider Family Medicine
DX: L08.9 Local infection of the skin and subcutaneous tissue, unspecified (principal)
CPT/HCPCS: 36415; 80048; 82550; 85027; 85652; 86140

== ENCOUNTER → 2021-06-30 | Outpatient (REF) | payer MEDICARE, SELFPAY ==
[2021-06-30 09:03] LABS: Erythrocyte Sedimentation Rate 31 mm/hr (0-30)
[2021-06-30 09:05] LABS: Hematocrit 31.7 % (37-47); Hemoglobin 10.1 g/dL (12.0-15.0); Mean Corp Hgb Conc 31.9 g/dL (32-36); Mean Corpuscular Hgb 27.3 pg (27.0-32.0); Mean Corpuscular Volume 85.7 fL (81-99); Mean Platelet Vol. 10.8 fl (6.2-12.0); Platelet Count 224 K/mm3 (150-450); RBC Distribution Width CV 15.3 % (11.6-14.6); RBC Distribution Width SD 48.1 fl (35.1-43.9); White Blood Count 6.3 K/mm3 (4.4-11.0)
[2021-06-30 09:15] LABS: Anion Gap 4 (5-15); BUN 37 mg/dL (7-18); BUN/Creat Ratio 27.6 RATIO (10-20); CPK Total, Creatine Kinase 27 U/L (26-192); CRP 7.01 mg/L (0.0-3.0); Calcium,Total 9.2 mg/dL (8.5-10.1); Chloride 107 mmol/L (98-107); Creatinine, Serum 1.34 mg/dL (0.55-1.02); EST Glomerular Filtration Rate 42 mL/min (>60); Est Glom Filt Rate - Afr Amer 50 mL/min (>60); Glucose 102 mg/dL (74-106); Potassium 4.1 mmol/L (3.5-5.1); Sodium Level 140 mmol/L (136-145)
== END | disposition home or self-care (01) ==
LOC: OLS.SW300 05:00
PROVIDERS: PCP Internal Medicine; Visit Provider Family Medicine
DX: L08.9 Local infection of the skin and subcutaneous tissue, unspecified (principal)
CPT/HCPCS: 36415; 80048; 82550; 85027; 85652; 86140

== ENCOUNTER → 2021-07-01 | Outpatient (REF) | payer MEDICARE, SELFPAY ==
[2021-07-01 08:17] LABS: Mucous, Urine 0 SEEN /hpf (<or=2+); Red Blood Cells-Urine 0 SEEN /hpf (0-5)
[2021-07-01 09:06] LABS: Color, Urine Yellow (Yellow); Glucose, Dipstick Normal (Normal); Ketone-Dipstick Negative (Negative); Leukocyte Esterase-Dipstick 500 /ul (Negative); Nitrite-Dipstick Positive (Negative); Occult Blood-Urine Negative /ul (Negative); Protein-Dipstick 15 mg/dl (Negative); Specific Gravity, Urine 1.015 (1.002-1.030); Urine Bilirubin Dipstick Negative (Negative); Urine Clarity Sl. Cloudy (Clear); Urine Urobilinogen Normal (Normal)
[2021-07-01 09:30] LABS: Bacteria 2+ /hpf (None Seen); Squamous Epithelial Cells - UA 0-5 SEEN /hpf (5-10); Triple Phosphate Crystals Ur 1+ /hpf (<or=1+); White Blood Cells 25-50 SEEN /hpf (0-5)
== END | disposition home or self-care (01) ==
LOC: OLS.SW300
PROVIDERS: PCP Internal Medicine; Visit Provider Family Medicine
DX: Z01.818 Encounter for other preprocedural examination (principal); N39.0 Urinary tract infection, site not specified
CPT/HCPCS: 81001; 87077; 87086; 87088; 87186

== ENCOUNTER → 2021-07-07 | Outpatient (REF) | payer MEDICARE, SELFPAY ==
[2021-07-07 07:49] LABS: Hematocrit 30.1 % (37-47); Hemoglobin 9.7 g/dL (12.0-15.0); Mean Corp Hgb Conc 32.2 g/dL (32-36); Mean Corpuscular Hgb 27.2 pg (27.0-32.0); Mean Corpuscular Volume 84.3 fL (81-99); Mean Platelet Vol. 10.6 fl (6.2-12.0); Platelet Count 215 K/mm3 (150-450); RBC Distribution Width CV 15.3 % (11.6-14.6); RBC Distribution Width SD 46.5 fl (35.1-43.9); Red Blood Count 3.57 M/mm3 (4.2-5.4); White Blood Count 6.9 K/mm3 (4.4-11.0)
[2021-07-07 07:59] LABS: Erythrocyte Sedimentation Rate 33 mm/hr (0-30)
[2021-07-07 08:25] LABS: Anion Gap 8 (5-15); BUN 31 mg/dL (7-18); BUN/Creat Ratio 21.8 RATIO (10-20); CPK Total, Creatine Kinase 26 U/L (26-192); CRP 6.35 mg/L (0.0-3.0); Calcium,Total 9.3 mg/dL (8.5-10.1); Chloride 106 mmol/L (98-107); Creatinine, Serum 1.42 mg/dL (0.55-1.02); EST Glomerular Filtration Rate 39 mL/min (>60); Est Glom Filt Rate - Afr Amer 47 mL/min (>60); Glucose 77 mg/dL (74-106); Sodium Level 141 mmol/L (136-145)
== END | disposition home or self-care (01) ==
LOC: OLS.SW300 05:00
PROVIDERS: PCP Internal Medicine; Visit Provider Family Medicine
DX: L08.9 Local infection of the skin and subcutaneous tissue, unspecified (principal)
CPT/HCPCS: 36415; 80048; 82550; 85027; 85652; 86140

== ENCOUNTER 2021-07-14 05:00 | Outpatient (REF) | payer MEDICARE, SELFPAY ==
[2021-07-14 08:50] LABS: Erythrocyte Sedimentation Rate 44 mm/hr (0-30)
[2021-07-14 08:52] LABS: Hematocrit 35.2 % (37-47); Hemoglobin 11.4 g/dL (12.0-15.0); Mean Corp Hgb Conc 32.4 g/dL (32-36); Mean Corpuscular Hgb 27.3 pg (27.0-32.0); Mean Corpuscular Volume 84.2 fL (81-99); Mean Platelet Vol. 10.4 fl (6.2-12.0); Platelet Count 284 K/mm3 (150-450); RBC Distribution Width SD 45.5 fl (35.1-43.9); Red Blood Count 4.18 M/mm3 (4.2-5.4); White Blood Count 9.5 K/mm3 (4.4-11.0)
[2021-07-14 09:00] LABS: Anion Gap 4 (5-15); BUN 29 mg/dL (7-18); BUN/Creat Ratio 18.2 RATIO (10-20); CPK Total, Creatine Kinase 29 U/L (26-192); CRP 5.75 mg/L (0.0-3.0); Calcium,Total 10.2 mg/dL (8.5-10.1); Chloride 106 mmol/L (98-107); Creatinine, Serum 1.59 mg/dL (0.55-1.02); EST Glomerular Filtration Rate 34 mL/min (>60); Est Glom Filt Rate - Afr Amer 41 mL/min (>60); Glucose 102 mg/dL (74-106); Potassium 4.3 mmol/L (3.5-5.1); Sodium Level 138 mmol/L (136-145)
== END 2021-07-14 23:59 | disposition home or self-care (01) ==
LOC: OLS.SW300 05:00
PROVIDERS: PCP Internal Medicine; Visit Provider Family Medicine
DX: I10 Essential (primary) hypertension (principal); I48.91 Unspecified atrial fibrillation; E11.9 Type 2 diabetes mellitus without complications; S42.491D Other displaced fracture of lower end of right humerus, subsequent encounter for fracture with routine healing
CPT/HCPCS: 36415; 80048; 82550; 85027; 85652; 86140

== ENCOUNTER → 2021-07-15 | Outpatient (REF) | payer MEDICARE, SELFPAY ==
[2021-07-16 06:31] LABS: Mucous, Urine 0 SEEN /hpf (<or=2+); Red Blood Cells-Urine 0 SEEN /hpf (0-5)
[2021-07-16 06:48] LABS: Color, Urine Yellow (Yellow); Glucose, Dipstick Normal (Normal); Ketone-Dipstick Negative (Negative); Leukocyte Esterase-Dipstick 25 /ul (Negative); Nitrite-Dipstick Positive (Negative); Occult Blood-Urine Negative /ul (Negative); Protein-Dipstick Negative (Negative); Specific Gravity, Urine 1.015 (1.002-1.030); Urine Bilirubin Dipstick Negative (Negative); Urine Clarity Sl. Cloudy (Clear); Urine Urobilinogen Normal (Normal)
[2021-07-16 06:56] LABS: Bacteria 3+ /hpf (None Seen); Squamous Epithelial Cells - UA 0-5 SEEN /hpf (5-10); White Blood Cells 0-5 SEEN /hpf (0-5)
== END | disposition home or self-care (01) ==
LOC: OLS.SW300 20:00
PROVIDERS: PCP Internal Medicine; Referring Provider Family Medicine; Visit Provider Family Medicine
DX: N39.0 Urinary tract infection, site not specified (principal)
CPT/HCPCS: 81001; 87077; 87086; 87088; 87186

== ENCOUNTER 2021-07-18 07:05 | Outpatient (REF) | payer MEDICARE, SELFPAY ==
[2021-07-18 08:23] LABS: Absolute Lymphocyte Count 1.93 X10^3/uL (0.83-4.51); Absolute Neutrophil Count 4.7 X10^3/uL (2.0-7.7); Basophil# 0.04 X10^3/uL; Basophil% 0.5 % (0-1); Eosinophil# 0.34 X10^3/uL; Eosinophils% 4.6 % (0-5); Hematocrit 32.7 % (37-47); Hemoglobin 10.3 g/dL (12.0-15.0); Lymphocyte # 1.93 X10^3/ul (0.83-4.51); Mean Corp Hgb Conc 31.5 g/dL (32-36); Mean Corpuscular Volume 85.8 fL (81-99); Mean Platelet Vol. 10.6 fl (6.2-12.0); Monocyte# 0.44 X10^3/uL; Monocyte% 5.9 % (0-10); NRBC Flagged by Analyzer 0 % (0-5); Neutrophil # 4.65 X10^3/uL (2.7-7.7); Neutrophil % 62.6 % (47-70); Platelet Count 244 K/mm3 (150-450); RBC Distribution Width CV 15.3 % (11.6-14.6); RBC Distribution Width SD 48.2 fl (35.1-43.9); Red Blood Count 3.81 M/mm3 (4.2-5.4); White Blood Count 7.4 K/mm3 (4.4-11.0)
[2021-07-18 08:46] LABS: Hemoglobin A1c 6.1 % (3.8-5.6)
== END 2021-07-18 23:59 | disposition home or self-care (01) ==
LOC: OLS.SW300 07:05
PROVIDERS: PCP Internal Medicine; Visit Provider Family Medicine
DX: Z01.818 Encounter for other preprocedural examination (principal)
CPT/HCPCS: 36415; 83036; 85025

== ENCOUNTER → 2021-07-23 | Outpatient (REF) | payer MEDICARE, SELFPAY ==
[2021-07-23 08:13] LABS: Absolute Lymphocyte Count 1.36 X10^3/uL (0.83-4.51); Absolute Neutrophil Count 4.8 X10^3/uL (2.0-7.7); Basophil# 0.03 X10^3/uL; Basophil% 0.4 % (0-1); Eosinophil# 0.28 X10^3/uL; Hematocrit 30.2 % (37-47); Hemoglobin 9.3 g/dL (12.0-15.0); Lymphocyte # 1.36 X10^3/ul (0.83-4.51); Lymphocyte % 19.6 % (19-41); Mean Corp Hgb Conc 30.8 g/dL (32-36); Mean Corpuscular Hgb 26.7 pg (27.0-32.0); Mean Corpuscular Volume 86.8 fL (81-99); Mean Platelet Vol. 10.9 fl (6.2-12.0); Monocyte# 0.45 X10^3/uL; Monocyte% 6.5 % (0-10); NRBC Flagged by Analyzer 0 % (0-5); Neutrophil # 4.81 X10^3/uL (2.7-7.7); Neutrophil % 69.2 % (47-70); Platelet Count 224 K/mm3 (150-450); RBC Distribution Width CV 15.3 % (11.6-14.6); RBC Distribution Width SD 48.8 fl (35.1-43.9); Red Blood Count 3.48 M/mm3 (4.2-5.4)
[2021-07-23 08:25] LABS: Anion Gap 5 (5-15); BUN 32 mg/dL (7-18); BUN/Creat Ratio 26.7 RATIO (10-20); Calcium,Total 8.8 mg/dL (8.5-10.1); Chloride 106 mmol/L (98-107); EST Glomerular Filtration Rate 47 mL/min (>60); Est Glom Filt Rate - Afr Amer 57 mL/min (>60); Glucose 87 mg/dL (74-106); Potassium 3.8 mmol/L (3.5-5.1); Sodium Level 140 mmol/L (136-145)
== END | disposition home or self-care (01) ==
LOC: OLS.SW300 04:00
PROVIDERS: PCP Internal Medicine; Visit Provider Family Medicine
DX: I10 Essential (primary) hypertension (principal); D64.9 Anemia, unspecified
CPT/HCPCS: 36415; 80048; 85025

== ENCOUNTER → 2021-07-27 | Outpatient (REF) | payer MEDICARE, SELFPAY ==
[2021-07-27 07:56] LABS: Absolute Lymphocyte Count 1.59 X10^3/uL (0.83-4.51); Absolute Neutrophil Count 4.1 X10^3/uL (2.0-7.7); Basophil# 0.02 X10^3/uL; Basophil% 0.3 % (0-1); Eosinophil# 0.33 X10^3/uL; Eosinophils% 5.1 % (0-5); Hematocrit 32.6 % (37-47); Hemoglobin 10.2 g/dL (12.0-15.0); Lymphocyte # 1.59 X10^3/ul (0.83-4.51); Lymphocyte % 24.7 % (19-41); Mean Corp Hgb Conc 31.3 g/dL (32-36); Mean Corpuscular Hgb 27.6 pg (27.0-32.0); Mean Corpuscular Volume 88.1 fL (81-99); Mean Platelet Vol. 10.5 fl (6.2-12.0); Monocyte% 6.2 % (0-10); NRBC Flagged by Analyzer 0 % (0-5); Neutrophil # 4.06 X10^3/uL (2.7-7.7); Neutrophil % 63.2 % (47-70); Platelet Count 259 K/mm3 (150-450); RBC Distribution Width CV 15.5 % (11.6-14.6); RBC Distribution Width SD 49.3 fl (35.1-43.9); White Blood Count 6.4 K/mm3 (4.4-11.0)
[2021-07-27 08:41] LABS: Anion Gap 6 (5-15); BUN 29 mg/dL (7-18); BUN/Creat Ratio 21.8 RATIO (10-20); Calcium,Total 9.1 mg/dL (8.5-10.1); Chloride 107 mmol/L (98-107); Creatinine, Serum 1.33 mg/dL (0.55-1.02); EST Glomerular Filtration Rate 42 mL/min (>60); Est Glom Filt Rate - Afr Amer 51 mL/min (>60); Glucose 81 mg/dL (74-106); Potassium 4.2 mmol/L (3.5-5.1); Sodium Level 138 mmol/L (136-145)
== END | disposition home or self-care (01) ==
LOC: OLS.SW300 04:00
PROVIDERS: PCP Internal Medicine; Visit Provider Family Medicine
DX: I10 Essential (primary) hypertension (principal); D64.9 Anemia, unspecified
CPT/HCPCS: 36415; 80048; 85025

== ENCOUNTER 2021-07-30 05:23 | Outpatient (REF) | payer MEDICARE, SELFPAY ==
[2021-07-30 08:18] LABS: Absolute Lymphocyte Count 1.78 X10^3/uL (0.83-4.51); Absolute Neutrophil Count 4.2 X10^3/uL (2.0-7.7); Basophil# 0.03 X10^3/uL; Basophil% 0.4 % (0-1); Eosinophil# 0.32 X10^3/uL; Eosinophils% 4.7 % (0-5); Hematocrit 30.9 % (37-47); Hemoglobin 9.5 g/dL (12.0-15.0); Lymphocyte # 1.78 X10^3/ul (0.83-4.51); Lymphocyte % 26.1 % (19-41); Mean Corp Hgb Conc 30.7 g/dL (32-36); Mean Corpuscular Hgb 26.9 pg (27.0-32.0); Mean Corpuscular Volume 87.5 fL (81-99); Mean Platelet Vol. 10.2 fl (6.2-12.0); Monocyte# 0.46 X10^3/uL; Monocyte% 6.7 % (0-10); NRBC Flagged by Analyzer 0 % (0-5); Neutrophil # 4.21 X10^3/uL (2.7-7.7); Neutrophil % 61.8 % (47-70); Platelet Count 236 K/mm3 (150-450); RBC Distribution Width CV 15.4 % (11.6-14.6); RBC Distribution Width SD 49.2 fl (35.1-43.9); Red Blood Count 3.53 M/mm3 (4.2-5.4); White Blood Count 6.8 K/mm3 (4.4-11.0)
== END 2021-07-30 23:59 | disposition home or self-care (01) ==
LOC: OLS.SW300 05:23
PROVIDERS: PCP Internal Medicine; Referring Provider Family Medicine; Visit Provider Family Medicine
DX: D64.9 Anemia, unspecified (principal); I10 Essential (primary) hypertension
CPT/HCPCS: 36415; 85025

== ENCOUNTER → 2021-08-06 | Outpatient (REF) | payer MEDICARE, SELFPAY ==
[2021-08-06 06:59] LABS: Absolute Lymphocyte Count 1.92 X10^3/uL (0.83-4.51); Absolute Neutrophil Count 5.3 X10^3/uL (2.0-7.7); Basophil# 0.04 X10^3/uL; Basophil% 0.5 % (0-1); Eosinophil# 0.35 X10^3/uL; Eosinophils% 4.3 % (0-5); Hematocrit 34.1 % (37-47); Hemoglobin 10.4 g/dL (12.0-15.0); Lymphocyte # 1.92 X10^3/ul (0.83-4.51); Lymphocyte % 23.4 % (19-41); Mean Corp Hgb Conc 30.5 g/dL (32-36); Mean Corpuscular Hgb 26.7 pg (27.0-32.0); Mean Corpuscular Volume 87.7 fL (81-99); Mean Platelet Vol. 10.2 fl (6.2-12.0); Monocyte# 0.54 X10^3/uL; Monocyte% 6.6 % (0-10); NRBC Flagged by Analyzer 0 % (0-5); Neutrophil # 5.33 X10^3/uL (2.7-7.7); Neutrophil % 64.7 % (47-70); Platelet Count 253 K/mm3 (150-450); RBC Distribution Width CV 15.2 % (11.6-14.6); RBC Distribution Width SD 48.5 fl (35.1-43.9); Red Blood Count 3.89 M/mm3 (4.2-5.4); White Blood Count 8.2 K/mm3 (4.4-11.0)
[2021-08-06 07:18] LABS: Anion Gap 5 (5-15); BUN 26 mg/dL (7-18); BUN/Creat Ratio 19.4 RATIO (10-20); Calcium,Total 9.9 mg/dL (8.5-10.1); Chloride 106 mmol/L (98-107); Creatinine, Serum 1.34 mg/dL (0.55-1.02); EST Glomerular Filtration Rate 42 mL/min (>60); Est Glom Filt Rate - Afr Amer 50 mL/min (>60); Glucose 102 mg/dL (74-106); Potassium 4.1 mmol/L (3.5-5.1); Sodium Level 138 mmol/L (136-145)
== END | disposition home or self-care (01) ==
LOC: OLS.SW300 04:00
PROVIDERS: PCP Internal Medicine; Visit Provider Family Medicine
DX: D64.9 Anemia, unspecified (principal); I10 Essential (primary) hypertension
CPT/HCPCS: 36415; 80048; 85025

== ENCOUNTER → 2021-08-13 | Outpatient (REF) | payer MEDICARE, SELFPAY ==
[2021-08-13 07:53] LABS: Absolute Lymphocyte Count 1.95 X10^3/uL (0.83-4.51); Absolute Neutrophil Count 4.2 X10^3/uL (2.0-7.7); Basophil# 0.03 X10^3/uL; Basophil% 0.4 % (0-1); Eosinophil# 0.29 X10^3/uL; Eosinophils% 4.2 % (0-5); Hematocrit 32.2 % (37-47); Hemoglobin 10.4 g/dL (12.0-15.0); Lymphocyte # 1.95 X10^3/ul (0.83-4.51); Mean Corp Hgb Conc 32.3 g/dL (32-36); Mean Corpuscular Volume 86.6 fL (81-99); Mean Platelet Vol. 10.6 fl (6.2-12.0); Monocyte# 0.47 X10^3/uL; Monocyte% 6.8 % (0-10); NRBC Flagged by Analyzer 0 % (0-5); Neutrophil # 4.18 X10^3/uL (2.7-7.7); Platelet Count 246 K/mm3 (150-450); RBC Distribution Width CV 14.9 % (11.6-14.6); RBC Distribution Width SD 47.3 fl (35.1-43.9); Red Blood Count 3.72 M/mm3 (4.2-5.4)
[2021-08-13 08:14] LABS: Anion Gap 4 (5-15); BUN 38 mg/dL (7-18); Calcium,Total 9.7 mg/dL (8.5-10.1); Chloride 106 mmol/L (98-107); Creatinine, Serum 1.31 mg/dL (0.55-1.02); EST Glomerular Filtration Rate 43 mL/min (>60); Est Glom Filt Rate - Afr Amer 52 mL/min (>60); Glucose 80 mg/dL (74-106); Potassium 4.1 mmol/L (3.5-5.1); Sodium Level 139 mmol/L (136-145)
== END | disposition home or self-care (01) ==
LOC: OLS.SW300 04:00
PROVIDERS: PCP Internal Medicine; Referring Provider Family Medicine; Visit Provider Family Medicine
DX: I10 Essential (primary) hypertension (principal); D64.9 Anemia, unspecified
CPT/HCPCS: 36415; 80048; 85025

== ENCOUNTER 2021-08-21 11:56 | Inpatient (IN) | payer MEDICARE, SELFPAY ==
[2021-08-21] VITALS (8 sets, daily range): BP systolic 121–150; BP diastolic 68–83; PULSE 63–77; RESP 16–20; TEMP 36.3–37; O2SAT 92–97; BMI 37.5; BMI 38.5
--- NOTE | 2021-08-21 12:08 | EDS_ITS ---
HPI History of Present Illness Chief Complaint: GI Bleed Narrative Narrative: Patient presents with possibility of urinary or GI bleed. The [facility] is unsure, patient has been having urinary incontinence recently, per [facility] they saw blood in the diapers this morning then it cleared and then again prior to arrival. Patient tells me she is asymptomatic. She is denying any fevers chills. She is denying abdominal pain. No nausea or vomiting. She is denying urinary symptoms other than her chronic incontinence. She is an ECF for rehab after a right elbow fracture. [facility] Medical History Abnormal mammogram of right breast Abnormal mammogram of right breast Afib Alcohol use Anemia Anemia Anxiety Anxiety and depression Arthritis Atrial fibrillation Back pain Breast lump Cardiology follow-up encounter COVID-19 vaccine series completed CPAP (continuous positive airway pressure) dependence CVA (cerebral vascular accident) Depression Depression with anxiety Diabetes Dietary restriction DKA (diabetic ketoacidoses) Essential hypertension Former smoker High cholesterol History of echocardiogram History of edema History of stress test History of UTI Hyperlipidemia Hypertension Kidney disease Non-rheumatic mitral valve stenosis Nonrheumatic aortic (valve) stenosis Osteoarthritis Osteoporosis Overactive bladder Paroxysmal atrial fibrillation Preoperative evaluation to rule out surgical contraindication Sleep apnea Venous insufficiency Vision problems Walker as ambulation aid Home Medications melatonin 10 mg capsule 10 mg PO HS PRN 07/07/20 [History Last Taken Unknown] apixaban 5 mg tablet 5 mg PO BID #180 tab 10/20/20 [Rx Last Taken 02/23/21] amlodipine 10 mg tablet 10 mg PO DAILY #90 tab 12/01/20 [Rx Last Taken 02/26/21 09:00] losartan 50 mg tablet 50 mg PO BID #180 tab 12/01/20 [Rx Last Taken 02/26/21 09:00] simvastatin 20 mg tablet 20 mg PO QHS #90 tab 12/01/20 [Rx Last Taken 01/25/21] glimepiride 2 mg tablet 2 mg PO BID #180 tab 12/12/20 [Rx Last Taken 01/26/21] metoprolol tartrate 50 mg tablet 50 mg PO BID #60 tab 12/12/20 [Rx Last Taken 02/26/21 09:00] oxybutynin chloride 15 mg tablet,extended release 24 hr 15 mg PO DAILY #90 tab 01/22/21 [Rx Last Taken 01/25/21] Januvia 100 mg PO DAILY 01/27/21 [History Last Taken Unknown] ferrous sulfate 325 mg PO DAILY 01/27/21 [History Last Taken Unknown] furosemide 40 mg PO DAILY 01/27/21 [History Last Taken Unknown] metformin 1,000 mg PO BID 01/27/21 [History Last Taken Unknown] acetaminophen 1,000 mg PO Q6H PRN PRN #0 tab 02/17/21 [Rx Last Taken Unknown] lorazepam 0.5 mg PO Q6H PRN PRN 7 Days #28 tab 02/17/21 [Rx Last Taken Unknown] calcium 600 mg PO BID 02/25/21 [History Last Taken Unknown] cholecalciferol (vitamin D3) [Vitamin D3] 25 mcg PO BID 02/25/21 [History Last Taken Unknown] multivitamin 1 cap PO DAILY 02/25/21 [History Last Taken Unknown] oxycodone 5 - 10 mg PO Q6H PRN PRN 7 Days #28 tab 03/01/21 [Rx Last Taken Unknown] acetaminophen 1,000 mg PO Q8 MDD 3000 mg 03/02/21 [History Last Taken Unknown] tramadol 50 mg PO Q6H 03/02/21 [History Last Taken Unknown] acetaminophen 1,000 mg PO Q8 #0 tab 03/16/21 [Rx Last Taken Unknown] bisacodyl 10 mg PO DAILY PRN #0 tab 03/16/21 [Rx Last Taken Unknown] menthol-zinc oxide [Calmoseptine] 1 applic TOPICAL BID #0 g 03/16/21 [Rx Last Taken Unknown] nystatin [Nyamyc] 1 applic TOPICAL BID #0 g 03/16/21 [Rx Last Taken Unknown] oxycodone 5 - 10 mg PO Q6H PRN PRN 3 Days #24 tab 03/16/21 [Rx Last Taken Unknown] polyethylene glycol 3350 17 g PO BID #0 ea 03/16/21 [Rx Last Taken Unknown] sennosides-docusate sodium [Stool Softener-Stimulant Laxat] 2 tab PO BID #0 tab 03/16/21 [Rx Last Taken Unknown] tramadol 50 mg PO Q6H PRN PRN 3 Days #12 tab 03/16/21 [Rx Last Taken Unknown] sertraline 100 mg tablet 200 mg PO DAILY #180 tab 04/29/21 [Rx Last Taken Unknown] Allergy/AdvReac Type Severity Reaction Status Date / Time fosinopril [From Monopril] Allergy Unknown unknown Verified 08/21/21 11:58 oxycodone AdvReac Other Verified 08/21/21 11:58 pioglitazone AdvReac Other Verified 08/21/21 11:58 Family History Father Diabetes Hypertension High cholesterol Heart disease Melanoma Surgical History History of back surgery History of carpal tunnel release History of hand surgery History of hysterectomy History of surgical amputation of finger of right hand S/P ORIF (open reduction internal fixation) fracture Social History household members: none Smoking Status: Former smoker how long ago did patient quit smokin years ago alcohol intake: current alcohol intake frequency: holidays/special occasions only substance use type: does not use what type of physical activity do you participate in: other details: aquasize ROS ROS ED ROS Narrative Past medical history: Reviewed, it is quite extensive review of systems. I reviewed it in our EMR as well as the ECF paperwork from [facility]. It is significant for incontinence, hyperlipidemia, pulmonary hypertension, mitral valve stenosis, anxiety, history of CVA, chronic debility, venous insufficiency, diabetes, LEIGH ANN, iron deficiency anemia, A. fib on Eliquis, morbid obesity, osteoarthritis, insomnia. Medications: Reviewed Social history: Noncontributory Review of systems: All systems negative except as indicated General: No fever. Generalized weakness which is chronic Eyes: No visual changes ENT: No upper airway congestion, normal voice Neck: No neck pain Cardiovascular: No current chest pain Respiratory: No current shortness of breath or cough Gastrointestinal: No abdominal pain, nausea vomiting or diarrhea. Otherwise possible bleed as in HPI Genitourinary: No dysuria. Chronic incontinence Musculoskeletal: Denies myalgias. Ambulation problems as in HPI and past medical history Skin: No rash Neurological: No memory loss, confusion or any focal weakness Psych: No recent behavioral changes Hematologic: Easy bruising secondary to Eliquis EXAM Physical Exam Narrative Exam Narrative: Physical exam General: Patient appears chronically ill Head: Normocephalic, Atraumatic Eyes: Conjunctiva not pale ENT: Slightly dry mucous membranes Neck: Supple, Nontender, No lymphadenopathy Cardiovascular: Regular rate, Regular rhythm Respiratory: No distress, coarse bilateral breath sounds Abdomen: Soft, Nontender, Nondistended : Normal external genitalia. Rectal exam does not show any hemorrhoids or fissures. The stool is light brown no blood seen. Back: Nontender, Normal Inspection. Negative for: CVA tenderness Extremities: Nontender, lower extremity edema which is chronic. Right elbow does show a surgical scar which is healed. Skin: Normal color, No rash. No pallor Neurological: Alert, no focal deficit Psychological: Normal affect Const Vital Signs: 08/21/21 11:58 Temperature 98.6 F Temperature Source Oral Pulse Rate 77 Respiratory Rate 18 Blood Pressure 150/83 H Blood Pressure Mean 105 Pulse Ox 94 Oxygen Delivery Method Room Air MDM MDM MDM Narrative Medical decision making narrative: Patient has an unremarkable work-up, it seems like she is guaiac positive and she has no blood in her urine thus I believe she likely has a lower GI bleed she is on Eliquis for a prior CVA secondary to A. fib but she does not think she has been in A. fib for at least 7 years. Regardless at this time we will stop Eliquis we will admit her for observation. She is hemodynamically stable currently. Lab Data Labs: Laboratory Results - last 24 hr 08/21/21 08/21/21 08/21/21 12:15 12:15 12:40 WBC 8.1 RBC 3.95 L Hgb 10.6 L Hct 33.5 L MCV 84.8 MCH 26.8 L MCHC 31.6 L RDW Std Deviation 46.4 H RDW Coeff of Zee 15.0 H Plt Count 287 MPV 10.0 Immature Gran % (Auto) 0.400 Neut % (Auto) 64.3 Lymph % (Auto) 23.2 [place] % (Auto) 7.4 Eos % (Auto) 4.2 Baso % (Auto) 0.5 Absolute Neuts (auto) 5.2 Absolute Lymphs (auto) 1.87 Nucleated RBC % 0 Sodium 139 Potassium 4.2 Chloride 106 Carbon Dioxide 31.0 Anion Gap 2 L BUN 29 H Creatinine 1.30 H Estim Creat Clear Calc 33.79 Est GFR (MDRD) Af Amer 52 L Est GFR (MDRD) Non-Af 43 L BUN/Creatinine Ratio 22.3 H Glucose 71 L Calcium 9.4 Total Bilirubin 0.40 AST 18 ALT 25 Alkaline Phosphatase 87 Total Protein 7.7 Albumin 3.4 Globulin 4.3 H Albumin/Globulin Ratio 0.8 L Urine Color Urine Clarity Urine pH Ur Specific [place] Urine Protein Urine Glucose (UA) Urine Ketones Urine Occult Blood Urine Nitrite Urine Bilirubin Urine Urobilinogen Ur Leukocyte Esterase Urine RBC Urine WBC Ur Squamous Epith Cells Urine Bacteria Urine Mucus Blood Type A POSITIVE Antibody Screen NEGATIVE 08/21/21 13:20 WBC RBC Hgb Hct MCV MCH MCHC RDW Std Deviation RDW Coeff of Zee Plt Count MPV Immature Gran % (Auto) Neut % (Auto) Lymph % (Auto) [place] % (Auto) Eos % (Auto) Baso % (Auto) Absolute Neuts (auto) Absolute Lymphs (auto) Nucleated RBC % Sodium Potassium Chloride Carbon Dioxide Anion Gap BUN Creatinine Estim Creat Clear Calc Est GFR (MDRD) Af Amer Est GFR (MDRD) Non-Af BUN/Creatinine Ratio Glucose Calcium Total Bilirubin AST ALT Alkaline Phosphatase Total Protein Albumin Globulin Albumin/Globulin Ratio Urine Color Yellow Urine Clarity Sl. Cloudy Urine pH 8.0 Ur Specific [place] 1.010 Urine Protein Negative Urine Glucose (UA) Normal Urine Ketones Negative Urine Occult Blood Negative Urine Nitrite Positive H Urine Bilirubin Negative Urine Urobilinogen Normal Ur Leukocyte Esterase 500 H Urine RBC 0 SEEN Urine WBC 0-5 SEEN Ur Squamous Epith Cells 0-5 SEEN Urine Bacteria RARE Urine Mucus 0 SEEN Blood Type Antibody Screen Discharge Plan Triage Chief Complaint: GI Bleed ED Provider: Venkat Ramirez Dx/Rx/DC Orders Clinical Impression: Acute GI bleeding, Weakness Prescriptions: No Action melatonin 10 mg capsule 10 mg PO HS PRN (Reason: Sleep) RF: 0 furosemide 40 mg tablet 40 mg PO DAILY RF: 0 ferrous sulfate 325 mg (65 mg iron) tablet 325 mg PO DAILY RF: 0 metformin 1,000 mg tablet 1,000 mg PO BID RF: 0 Januvia 100 mg tablet 100 mg PO DAILY RF: 0 acetaminophen 500 mg Tablet 1,000 mg PO Q6H PRN PRN (Reason: Pain Score 1-3) Qty: 0 RF: 0 lorazepam 0.5 mg Tablet 0.5 mg PO Q6H PRN PRN (Reason: Anxiety) 7 Days Qty: 28 RF: 0 calcium 600 mg Capsule 600 mg PO BID RF: 0 multivitamin Capsule 1 cap PO DAILY RF: 0 cholecalciferol (vitamin D3) [Vitamin D3] 25 mcg (1,000 unit) Tablet,Chewable 25 mcg PO BID RF: 0 oxycodone 5 mg Tablet 5 - 10 mg PO Q6H PRN PRN (Reason: pain 1-10) 7 Days Qty: 28 RF: 0 tramadol 50 mg tablet 50 mg PO Q6H RF: 0 acetaminophen 500 mg tablet 1,000 mg PO Q8 MDD 3000 mg RF: 0 polyethylene glycol 3350 17 gram Powder In Packet 17 g PO BID Qty: 0 RF: 0 sennosides-docusate sodium [Stool Softener-Stimulant Laxat] 8.6-50 mg Tablet 2 tab PO BID Qty: 0 RF: 0 tramadol 50 mg Tablet 50 mg PO Q6H PRN PRN (Reason: Pain Score 1-6) 3 Days Qty: 12 RF: 0 acetaminophen 500 mg Tablet 1,000 mg PO Q8 Qty: 0 RF: 0 bisacodyl 5 mg Tablet,Delayed Release (Dr/Ec) 10 mg PO DAILY PRN (Reason: Constipation) Qty: 0 RF: 0 nystatin [Nyamyc] 100,000 unit/gram Powder 1 applic topical BID Qty: 0 RF: 0 oxycodone 5 mg Tablet 5 - 10 mg PO Q6H PRN PRN (Reason: pain 7-10) 3 Days Qty: 24 RF: 0 menthol-zinc oxide [Calmoseptine] 0.44-20.6 % Ointment 1 applic topical BID Qty: 0 RF: 0 apixaban 5 mg tablet 5 mg PO BID Qty: 180 RF: 3 amlodipine 10 mg tablet 10 mg PO DAILY Qty: 90 RF: 3 losartan 50 mg tablet 50 mg PO BID Qty: 180 RF: 3 simvastatin 20 mg tablet 20 mg PO QHS Qty: 90 RF: 3 metoprolol tartrate 50 mg tablet 50 mg PO BID Qty: 60 RF: 1 glimepiride 2 mg tablet 2 mg PO BID Qty: 180 RF: 3 oxybutynin chloride 15 mg tablet extended release 24hr 15 mg PO DAILY Qty: 90 RF: 1 sertraline [Zoloft] 100 mg tablet 200 mg PO DAILY Qty: 180 RF: 1 Primary Care Provider: Sulma Reagan Referrals: Sulma Reagan MD [Primary Care Provider] - Disposition Disposition: Acute Care Hospital [facility]
[2021-08-21 12:30] LABS: Absolute Lymphocyte Count 1.87 X10^3/uL (0.83-4.51); Absolute Neutrophil Count 5.2 X10^3/uL (2.0-7.7); Basophil# 0.04 X10^3/uL; Basophil% 0.5 % (0-1); Eosinophil# 0.34 X10^3/uL; Eosinophils% 4.2 % (0-5); Hematocrit 33.5 % (37-47); Hemoglobin 10.6 g/dL (12.0-15.0); Lymphocyte # 1.87 X10^3/ul (0.83-4.51); Lymphocyte % 23.2 % (19-41); Mean Corp Hgb Conc 31.6 g/dL (32-36); Mean Corpuscular Hgb 26.8 pg (27.0-32.0); Mean Corpuscular Volume 84.8 fL (81-99); Monocyte% 7.4 % (0-10); NRBC Flagged by Analyzer 0 % (0-5); Neutrophil # 5.18 X10^3/uL (2.7-7.7); Neutrophil % 64.3 % (47-70); Platelet Count 287 K/mm3 (150-450); RBC Distribution Width SD 46.4 fl (35.1-43.9); Red Blood Count 3.95 M/mm3 (4.2-5.4); White Blood Count 8.1 K/mm3 (4.4-11.0)
[2021-08-21 12:46] LABS: ALB/GLOB Ratio 0.8 RATIO (0.9-2.4); AST(SGOT) 18 U/L (15-37); Alanine Aminotransfer ALT/SGPT 25 U/L (13-56); Albumin, Serum 3.4 g/dL (3.2-5.0); Alkaline Phosphatase 87 U/L (45-117); Anion Gap 2 (5-15); BUN 29 mg/dL (7-18); BUN/Creat Ratio 22.3 RATIO (10-20); Calcium,Total 9.4 mg/dL (8.5-10.1); Chloride 106 mmol/L (98-107); EST Glomerular Filtration Rate 43 mL/min (>60); Est Glom Filt Rate - Afr Amer 52 mL/min (>60); Estimated Creatinine Clearance 33.79 ml/min; Globulin 4.3 g/dL (2.2-4.2); Glucose 71 mg/dL (74-106); Potassium 4.2 mmol/L (3.5-5.1); Protein, Total 7.7 g/dL (6.4-8.2); Sodium Level 139 mmol/L (136-145)
[2021-08-21 13:27] LABS: Mucous, Urine 0 SEEN /hpf (<or=2+); Red Blood Cells-Urine 0 SEEN /hpf (0-5)
[2021-08-21 13:35] LABS: Color, Urine Yellow (Yellow); Glucose, Dipstick Normal (Normal); Ketone-Dipstick Negative (Negative); Leukocyte Esterase-Dipstick 500 /ul (Negative); Nitrite-Dipstick Positive (Negative); Occult Blood-Urine Negative /ul (Negative); Protein-Dipstick Negative (Negative); Urine Bilirubin Dipstick Negative (Negative); Urine Clarity Sl. Cloudy (Clear); Urine Urobilinogen Normal (Normal)
[2021-08-21 13:42] LABS: Bacteria RARE /hpf (None Seen); Squamous Epithelial Cells - UA 0-5 SEEN /hpf (5-10); White Blood Cells 0-5 SEEN /hpf (0-5)
--- NOTE | 2021-08-21 13:52 | HP.PCM.HOS_ITS ---
HPI - General General Date of Admission: 08/21/21 HPI Narrative JOSELINE RIDDLE, is a 71 F with an extensive PMh as outlined who presents via the ED on 08/21/2021 with a complaint of questionable GI bleed. She has a history of afib diagnosed 7 years ago, but hasnt been in afib since then. She was admitted from her ECF with a complaint of bright red blood per rectum. SHe denied any dizziness, lightheadedness, nausea, vomiting or abdominal pain. She hasnt had such symptoms before. She has been compliant with her eliquis. She is in the ECF o/a of a recent right elbow fracture. She denied any coffee ground emesis or any vomiting of blood. Review of systems was otherwise negative. Vitals in the ED were BP of 150/83, [place] of 77, RR of 18 and temp of 98.6F. She was saturating at 94% on room air. CBC showed hb of 10.6, with wbc of 8.1 and platelets of 287. Chemistry showed sodium of 139 and Cr of 1.3, with potassium of 4.2. Urinalysis showed rare bacteria, positive nitrites and leucocyte esterase of 500. Stool for occult blood was positive. She is being admitted to be managed for lower GI bleed. [facility] Medical History (Updated 08/21/21 @ 22:07 by Hira Luna) Abnormal mammogram of right breast Abnormal mammogram of right breast Afib Alcohol use Anemia Anemia Anxiety Anxiety and depression Arthritis Atrial fibrillation Back pain Breast lump Cardiology follow-up encounter Chronic cough COVID-19 vaccine series completed CPAP (continuous positive airway pressure) dependence CVA (cerebral vascular accident) Depression Depression with anxiety Diabetes Dietary restriction DKA (diabetic ketoacidoses) Essential hypertension Former smoker High cholesterol History of echocardiogram History of edema History of stress test History of UTI HTN (hypertension) Hyperlipidemia Hypertension Irregular heartbeat Kidney disease Non-rheumatic mitral valve stenosis Nonrheumatic aortic (valve) stenosis Osteoarthritis Osteoporosis Overactive bladder Pancreatitis Paroxysmal atrial fibrillation Post-menopausal Preoperative evaluation to rule out surgical contraindication Sleep apnea Venous insufficiency Vision problems Walker as ambulation aid Home Medications apixaban 5 mg tablet 5 mg PO BID #180 tab 10/20/20 [Rx Last Taken 02/23/21] amlodipine 10 mg tablet 10 mg PO DAILY #90 tab 12/01/20 [Rx Last Taken 02/26/21 09:00] losartan 50 mg tablet 50 mg PO BID #180 tab 12/01/20 [Rx Last Taken 02/26/21 09:00] simvastatin 20 mg tablet 20 mg PO QHS #90 tab 12/01/20 [Rx Last Taken 01/25/21] glimepiride 2 mg tablet 2 mg PO BID #180 tab 12/12/20 [Rx Last Taken 01/26/21] metoprolol tartrate 50 mg tablet 50 mg PO BID #60 tab 12/12/20 [Rx Last Taken 02/26/21 09:00] oxybutynin chloride 15 mg tablet,extended release 24 hr 15 mg PO DAILY #90 tab 01/22/21 [Rx Last Taken 01/25/21] ferrous sulfate 325 mg PO DAILY 01/27/21 [History Last Taken Unknown] furosemide 40 mg PO DAILY 01/27/21 [History Last Taken Unknown] metformin 1,000 mg PO BID 01/27/21 [History Last Taken Unknown] calcium 600 mg PO BID 02/25/21 [History Last Taken Unknown] multivitamin 1 cap PO DAILY 02/25/21 [History Last Taken Unknown] bisacodyl 10 mg PO DAILY PRN #0 tab 03/16/21 [Rx Last Taken Unknown] sennosides-docusate sodium [Stool Softener-Stimulant Laxat] 2 tab PO BID #0 tab 03/16/21 [Rx Last Taken Unknown] Tradjenta 5 mg PO DAILY 08/21/21 [History Last Taken Unknown] ascorbic acid (vitamin C) [Vitamin C] 500 mg PO DAILY 08/21/21 [History Last Taken Unknown] melatonin 3 mg PO QHS 08/21/21 [History Last Taken Unknown] sertraline [Zoloft] 100 mg PO DAILY 08/21/21 [History Last Taken Unknown] Allergy/AdvReac Type Severity Reaction Status Date / Time fosinopril [From Monopril] Allergy Unknown unknown Verified 08/21/21 11:58 pioglitazone AdvReac Other Verified 08/21/21 11:58 Family History Father Diabetes Hypertension High cholesterol Heart disease Melanoma Surgical History (Updated 08/21/21 @ 22:07 by Hira Luna) History of back surgery History of carpal tunnel release History of hand surgery History of hysterectomy History of surgical amputation of finger of right hand S/P hysterectomy S/P ORIF (open reduction internal fixation) fracture Social History household members: none Smoking Status: Former smoker how long ago did patient quit smokin years ago alcohol intake: current alcohol intake frequency: holidays/special occasions only substance use type: does not use what type of physical activity do you participate in: other details: aquasize ROS Constitutional Constitutional: Denies anorexia, chills, fatigue, fever(s), malaise or weakness Eyes Eyes: Denies change in vision ENT HEENT: Denies dysphagia, headache(s), nasal congestion, nasal discharge or sore throat Cardiovascular Cardiovascular: Denies chest pain, dyspnea on exertion, edema, lightheadedness, orthopnea, palpitations, paroxysmal nocturnal dyspnea or rapid heart rate Respiratory/Chest Respiratory/Chest: Denies cough, dyspnea, productive cough, shortness of breath at rest, shortness of breath with exertion or wheezing Gastrointestinal Gastrointestinal: Reports hematochezia; Denies abdominal pain, coffee ground emesis, constipation, diarrhea, dyspepsia, melena, nausea or vomiting Genitourinary Genitourinary: Denies burning urination, dysuria or hematuria Musculoskeletal Musculoskeletal: Denies arthralgias Neurologic Neurologic: Denies confusion, dizziness, focal weakness, headache(s), seizures or syncope Psychiatric Psychiatric: Denies anxiety or depression Endocrine Endocrinology: Denies change in body appearance Vital Signs Vital Signs Vital Signs: 08/21/21 11:58 Temperature 98.6 F Temperature Source Oral Pulse Rate 77 Respiratory Rate 18 Blood Pressure 150/83 H Blood Pressure Mean 105 Pulse Ox 94 Oxygen Delivery Method Room Air Weight Weight: 212 lb 1.355 oz Body Mass Index (BMI) 37.5 Physical Exam Const alert, oriented x3 and no apparent distress General Appearance: cooperative HEENT normocephalic, head/scalp atraumatic, hearing grossly normal bilaterally and moist oral mucous membranes Eyes PERRL, EOMs intact bilaterally and conjunctivae normal Neck no lymphadenopathy and supple Resp normal respiratory effort, no retractions, no use of accessory muscles and clear to auscultation bilaterally Cardio regular rate, regular rhythm, S1 normal heart sound, S2 normal heart sound and no murmurs GI normal to inspection, nondistended, normoactive bowel sounds, soft to palpation, non-tender and non-distended Extremity normal to inspection, full ROM and no clubbing, cyanosis or edema Peripheral Pulses: Yes pulses 2+ throughout Skin no rashes or lesions noted Neuro oriented x3, CN's II-XII intact bilaterally and moves all extremities Sensorium / Orientation: awake and alert Psych affect normal Results Lab / Micro Data Result Diagrams: 08/22/21 06:57 08/22/21 06:57 Labs: Laboratory Results - last 24 hr 08/21/21 12:15: WBC 8.1, RBC 3.95 L, Hgb 10.6 L, Hct 33.5 L, MCV 84.8, MCH 26.8 L, MCHC 31.6 L, RDW Std Deviation 46.4 H, RDW Coeff of Zee 15.0 H, Plt Count 287, MPV 10.0, Immature Gran % (Auto) 0.400, Neut % (Auto) 64.3, Lymph % (Auto) 23.2, [place] % (Auto) 7.4, Eos % (Auto) 4.2, Baso % (Auto) 0.5, Absolute Neuts (auto) 5.2, Absolute Lymphs (auto) 1.87, Nucleated RBC % 0 08/21/21 12:15: Sodium 139, Potassium 4.2, Chloride 106, Carbon Dioxide 31.0, Anion Gap 2 L, BUN 29 H, Creatinine 1.30 H, Estim Creat Clear Calc 33.79, Est GFR (MDRD) Af Amer 52 L, Est GFR (MDRD) Non-Af 43 L, BUN/Creatinine Ratio 22.3 H , Glucose 71 L, Calcium 9.4, Total Bilirubin 0.40, AST 18, ALT 25, Alkaline Phosphatase 87, Total Protein 7.7, Albumin 3.4, Globulin 4.3 H, Albumin/Globulin Ratio 0.8 L 08/21/21 12:40: Blood Type A POSITIVE, Antibody Screen NEGATIVE 08/21/21 13:20: Urine Color Yellow, Urine Clarity Sl. Cloudy, Urine pH 8.0, Ur Specific [place] 1.010, Urine Protein Negative, Urine Glucose (UA) Normal, Urine Ketones Negative, Urine Occult Blood Negative, Urine Nitrite Positive H, Urine Bilirubin Negative, Urine Urobilinogen Normal, Ur Leukocyte Esterase 500 H, Urine RBC 0 SEEN, Urine WBC 0-5 SEEN, Ur Squamous Epith Cells 0-5 SEEN, Urine Bacteria RARE, Urine Mucus 0 SEEN Micro: Microbiology 08/21/21 12:15 Stool Stool Occult Blood (LATISHA) - Final Occult Blood Positive Assessment & Plan Assessment/Plan (1) Lower GI bleed: PLAN: #Lower GI bleed * noted to be having bright red blood per rectum in the ECF * Hb is 10./6 * admit to med surg * hydrate gently with iVF * hold eliquis * consult gastroenterology * type and cross for transfusion as needed * hold eliquis * #history of afib * diagnosed ~ 7 years ago after she had a stroke * has been in NSR since then * hold eliquis * #Type 2 diabetes mellitus * Hold oral medications. Insulin sliding scale. Accu-Cheks AC at bedtime. * #Hyperlipidemia: On statin #Hypertension: On amlodipine and losartan as well as metoprolol #History of CVA * was thought to be due to afib. * eliquis held due to lower GI bleed * #CKD stage IIIb: Creatinine is 1.3 which is around her baseline. Will monitor. DVT prophylaxis: SCDs GI prohylaxis: PPI CODE STATUS: Full code * Patient counseled extensively about different types of CODE STATUS including full code, DNR CCA and DNR CCA. Patient initially said she wanted to be DNRCCA, but subsequently decided to be full code. * Patient elects to be full code. * Total [id number] time 18 minutes. Charges/Coding Visit Charges Inpatient E&M: 50779 Init Hosp L3 Procedures Hospitalists Procedures: 66840 Advncd Care Plan 30 Min
[2021-08-21] MEDS: Ceftriaxone 1 GM/50 ML BAG IV (14:29)
[2021-08-21 17:21] LABS: Bedside Glucose 148 mg/dL (74-106)
[2021-08-21] MEDS: 0.9% Normal Saline 1,000 ML 125 ML IV (17:30)
--- NOTE | 2021-08-21 19:43 | EX.PCM.CON.G ---
HPI Consult Data Date of Consult: 08/21/21 HPI Narrative HPI Narrative: JOSELINE RIDDLE, is a 71 F who presents from long term with lower GI bleed. She has a past medical history of ischemic stroke in 2019 possibly secondary to atrial fibrillation. Therefore she has been on Eliquis 5 mg twice daily since. She has had a traumatic year. She sustained a elbow fracture and it resulted in a septic joint after multiple surgeries. She was finally able to get a joint replacement on 07/20/2021. She also has a past medical history of diabetes mellitus, LEIGH ANN on CPAP at night, hypertension and peripheral neuropathy. At the long term she had some cramping in her lower abdomen when she went to the bathroom she saw a lot of blood with blood clots. When she got to the ED she had another episode of lower GI bleeding. Her CBC showed a hemoglobin of 10.6, platelets 287, white blood cell count 8.1. Her BUN creatinine ratio was elevated at 29/1.3 creatinine. Her last colonoscopy was in 2012. She said she did not have any problems during that time. [facility] Medical History (Updated 08/21/21 @ 14:51 by Dolly Lange) Abnormal mammogram of right breast Abnormal mammogram of right breast Afib Alcohol use Anemia Anemia Anxiety Anxiety and depression Arthritis Atrial fibrillation Back pain Breast lump Cardiology follow-up encounter COVID-19 vaccine series completed CPAP (continuous positive airway pressure) dependence CVA (cerebral vascular accident) Depression Depression with anxiety Diabetes Dietary restriction DKA (diabetic ketoacidoses) Essential hypertension Former smoker High cholesterol History of echocardiogram History of edema History of stress test History of UTI Hyperlipidemia Hypertension Kidney disease Non-rheumatic mitral valve stenosis Nonrheumatic aortic (valve) stenosis Osteoarthritis Osteoporosis Overactive bladder Pancreatitis Paroxysmal atrial fibrillation Preoperative evaluation to rule out surgical contraindication Sleep apnea Venous insufficiency Vision problems Walker as ambulation aid Home Medications apixaban 5 mg tablet 5 mg PO BID #180 tab 10/20/20 [Rx Last Taken 02/23/21] amlodipine 10 mg tablet 10 mg PO DAILY #90 tab 12/01/20 [Rx Last Taken 02/26/21 09:00] losartan 50 mg tablet 50 mg PO BID #180 tab 12/01/20 [Rx Last Taken 02/26/21 09:00] simvastatin 20 mg tablet 20 mg PO QHS #90 tab 12/01/20 [Rx Last Taken 01/25/21] glimepiride 2 mg tablet 2 mg PO BID #180 tab 12/12/20 [Rx Last Taken 01/26/21] metoprolol tartrate 50 mg tablet 50 mg PO BID #60 tab 12/12/20 [Rx Last Taken 02/26/21 09:00] oxybutynin chloride 15 mg tablet,extended release 24 hr 15 mg PO DAILY #90 tab 01/22/21 [Rx Last Taken 01/25/21] ferrous sulfate 325 mg PO DAILY 01/27/21 [History Last Taken Unknown] furosemide 40 mg PO DAILY 01/27/21 [History Last Taken Unknown] metformin 1,000 mg PO BID 01/27/21 [History Last Taken Unknown] calcium 600 mg PO BID 02/25/21 [History Last Taken Unknown] multivitamin 1 cap PO DAILY 02/25/21 [History Last Taken Unknown] bisacodyl 10 mg PO DAILY PRN #0 tab 03/16/21 [Rx Last Taken Unknown] sennosides-docusate sodium [Stool Softener-Stimulant Laxat] 2 tab PO BID #0 tab 03/16/21 [Rx Last Taken Unknown] ascorbic acid (vitamin C) [Vitamin C] 500 mg PO DAILY 08/21/21 [History Last Taken Unknown] linagliptin [Tradjenta] 5 mg PO DAILY 08/21/21 [History Last Taken Unknown] melatonin 3 mg PO QHS 08/21/21 [History Last Taken Unknown] sertraline [Zoloft] 100 mg PO DAILY 08/21/21 [History Last Taken Unknown] Allergy/AdvReac Type Severity Reaction Status Date / Time fosinopril [From Monopril] Allergy Unknown unknown Verified 08/21/21 11:58 pioglitazone AdvReac Other Verified 08/21/21 11:58 Family History Father Diabetes Hypertension High cholesterol Heart disease Melanoma Surgical History History of back surgery History of carpal tunnel release History of hand surgery History of hysterectomy History of surgical amputation of finger of right hand S/P ORIF (open reduction internal fixation) fracture Social History household members: none Smoking Status: Former smoker how long ago did patient quit smokin years ago alcohol intake: current alcohol intake frequency: holidays/special occasions only substance use type: does not use what type of physical activity do you participate in: other details: aquasize ROS Gastrointestinal Gastrointestinal: Reports hematochezia Physical Exam Const alert General Appearance: cooperative Orientation / Consciousness: oriented to person HEENT hearing grossly normal bilaterally Head and Scalp: normal to inspection Face and Sinus: face symmetric Nose: external nose normal Mouth: oral and palatal mucosa normal Eyes conjunctivae normal General Eye: normal appearance of both eyes Neck full ROM General: normal visual inspection Lymph Lymphatic: no lymphadenopathy noted Chest inspection of chest normal and palpation of chest normal Chest: symmetrical chest wall rise Resp normal respiratory effort Effort and Inspection: able to speak in complete sentences Cardio regular rate GI non-distended Percussion: normal to percussion Rectal Exam: deferred Neuro Speech: speech normal Gait (Neuro): normal gait Lab / Micro Data Result Diagrams: 08/21/21 12:15 08/21/21 12:15 Labs: Laboratory Results - last 24 hr 08/21/21 12:15: WBC 8.1, RBC 3.95 L, Hgb 10.6 L, Hct 33.5 L, MCV 84.8, MCH 26.8 L, MCHC 31.6 L, RDW Std Deviation 46.4 H, RDW Coeff of Zee 15.0 H, Plt Count 287, MPV 10.0, Immature Gran % (Auto) 0.400, Neut % (Auto) 64.3, Lymph % (Auto) 23.2, [place] % (Auto) 7.4, Eos % (Auto) 4.2, Baso % (Auto) 0.5, Absolute Neuts (auto) 5.2, Absolute Lymphs (auto) 1.87, Nucleated RBC % 0 08/21/21 12:15: Sodium 139, Potassium 4.2, Chloride 106, Carbon Dioxide 31.0, Anion Gap 2 L, BUN 29 H, Creatinine 1.30 H, Estim Creat Clear Calc 33.79, Est GFR (MDRD) Af Amer 52 L, Est GFR (MDRD) Non-Af 43 L, BUN/Creatinine Ratio 22.3 H, Glucose 71 L, Calcium 9.4, Total Bilirubin 0.40, AST 18, ALT 25, Alkaline Phosphatase 87, Total Protein 7.7, Albumin 3.4, Globulin 4.3 H, Albumin/Globulin Ratio 0.8 L 08/21/21 12:40: Blood Type A POSITIVE, Antibody Screen NEGATIVE 08/21/21 13:20: Urine Color Yellow, Urine Clarity Sl. Cloudy, Urine pH 8.0, Ur Specific [place] 1.010, Urine Protein Negative, Urine Glucose (UA) Normal, Urine Ketones Negative, Urine Occult Blood Negative, Urine Nitrite Positive H, Urine Bilirubin Negative, Urine Urobilinogen Normal, Ur Leukocyte Esterase 500 H, Urine RBC 0 SEEN, Urine WBC 0-5 SEEN, Ur Squamous Epith Cells 0-5 SEEN, Urine Bacteria RARE, Urine Mucus 0 SEEN 08/21/21 17:13: POC Glucose 148 H Micro: Microbiology 08/21/21 12:15 Stool Stool Occult Blood (LATISHA) - Final Occult Blood Positive Assessment & Plan Assessment/Plan (1) Acute GI bleeding: PLAN: She should undergo an upper lower endoscopy to identify any sign of acute GI blood loss in the setting of chronic anemia. She has been on iron therapy for the last 2 years after becoming anemic. Differential diagnosis does include peptic ulcer disease, AVM, neoplasm. She was explained alternatives, risk, benefits including not withstanding bleeding, infection, sepsis, perforation, need for emergent sudden . She have an ASA of 3. Charges/Coding Visit Charges Inpatient E&M: 27963 Init Hosp L2
[2021-08-21] MEDS: Metoprolol Tartrate 50 MG Tablet PO (21:57)
[2021-08-21] MEDS: Bisacodyl 5 MG Tablet 20 MG PO (21:58)
[2021-08-21] MEDS: Electrolyte Solution/Peg's 4000 ML PO (21:58)
--- NOTE | 2021-08-21 22:35 | EKG12_ITS ---
Test Reason : PRE-OP Blood Pressure : / mmHG Vent. Rate : 071 BPM Atrial Rate : 071 BPM P-R Int : 166 ms QRS Dur : 078 ms QT Int : 402 ms P-R-T Axes : 054 033 017 degrees QTc Int : 436 ms Normal sinus rhythm Normal ECG When compared with ECG of 26-JAN-2021 16:51, No significant change was found Confirmed by SHERIF CALLOWAY, MILDRED ([id number]), photography editor AMALIA MEJIA ([id number]) on 08/27/2021 12:57:35 PM Referred By: CAROLEE Confirmed By:MILDRED GORMAN MD
[2021-08-22] VITALS (11 sets, daily range): BP systolic 129–156; BP diastolic 63–88; PULSE 61–80; RESP 16–18; TEMP 36.2–36.6; O2SAT 93–100; BMI 38.5
[2021-08-22] MEDS: 0.9% Normal Saline 1,000 ML 125 ML IV (03:23)
--- NOTE | 2021-08-22 05:00 | RAD_ITS ---
INDICATION: pre-op EXAMINATION/TECHNIQUE: X-RAY - XR Chest 1 View COMPARISON: 01/26/2021 FINDINGS: LINES/DEVICES: None. LUNGS: No consolidation, edema or effusion. No pneumothorax. MEDIASTINUM AND CARDIOVASCULAR STRUCTURES: Atherosclerotic calcifications and enlarged cardiomediastinal contours, similar compared to the prior. BONES AND SOFT TISSUES: Anterior cervical spine fusion hardware again seen. No acute osseous abnormality. RAD/Chest 1 View (Portable) IMPRESSION: No acute cardiopulmonary disease. Electronically Signed: William Franco MD at 6:29 EDT ,
[2021-08-22 07:05] LABS: Absolute Lymphocyte Count 1.58 X10^3/uL (0.83-4.51); Absolute Neutrophil Count 4.5 X10^3/uL (2.0-7.7); Basophil# 0.02 X10^3/uL; Basophil% 0.3 % (0-1); Eosinophil# 0.33 X10^3/uL; Eosinophils% 4.8 % (0-5); Hematocrit 31.5 % (37-47); Hemoglobin 10.2 g/dL (12.0-15.0); Lymphocyte # 1.58 X10^3/ul (0.83-4.51); Lymphocyte % 22.9 % (19-41); Mean Corp Hgb Conc 32.4 g/dL (32-36); Mean Corpuscular Hgb 27.1 pg (27.0-32.0); Mean Corpuscular Volume 83.8 fL (81-99); Mean Platelet Vol. 9.9 fl (6.2-12.0); Monocyte# 0.43 X10^3/uL; Monocyte% 6.2 % (0-10); NRBC Flagged by Analyzer 0 % (0-5); Neutrophil # 4.51 X10^3/uL (2.7-7.7); Neutrophil % 65.5 % (47-70); Platelet Count 229 K/mm3 (150-450); RBC Distribution Width CV 14.9 % (11.6-14.6); RBC Distribution Width SD 45.2 fl (35.1-43.9); Red Blood Count 3.76 M/mm3 (4.2-5.4); White Blood Count 6.9 K/mm3 (4.4-11.0)
[2021-08-22 07:32] LABS: Anion Gap 5 (5-15); BUN 20 mg/dL (7-18); BUN/Creat Ratio 19.2 RATIO (10-20); Calcium,Total 9.1 mg/dL (8.5-10.1); Chloride 107 mmol/L (98-107); Creatinine, Serum 1.04 mg/dL (0.55-1.02); EST Glomerular Filtration Rate 56 mL/min (>60); Est Glom Filt Rate - Afr Amer 68 mL/min (>60); Estimated Creatinine Clearance 38.52 ml/min; Glucose 146 mg/dL (74-106); Potassium 3.8 mmol/L (3.5-5.1); Sodium Level 136 mmol/L (136-145)
[2021-08-22 07:55] LABS: Hemoglobin A1c 6.2 % (3.8-5.6)
--- NOTE | 2021-08-22 08:05 | COLBX_PTH ---
PATIENT: JOSELINE RIDDLE LOC: MS3 U#:[id number] AGE/SX: 71/F ROOM: IN317 RE08/21/[address]: Dr. Kisha Lopez MD : 1950 BED: 1 DIS: 08/22/2021 SPEC #: [id number] RECD: 08/22/21 09:11 STATUS: MELODY REBrando #: [id number] ELIANA: 08/22/21 08:[address]: Micah Ramesh DEPT: SURGICAL PATHOLOGY RECD BY: Harmony Grissom ENTERED: 08/24/21 09:34 SP TYPE: COLON BX OTHR DR: MD Dr. Kisha Barajas MD Tissues: Sigmoid colon biopsy Procedures: Surgery Specimen Level IV Comments: @ Ordering doctor for SUIV edited from to @ by RGOOD at 08/24/21 1356 @ Submitting doctor edited from to @ by RGOOD at 08/24/21 1356 HEADER OPERATION: Colonoscopy, EGD ([facility]) PRE-OP DIAGNOSIS: Acute GI bleeding TISSUE SUBMITTED: Sigmoid polyps (2) MICROSCOPIC DIAGNOSIS Sigmoid colon polyps, biopsy: Fragments of tubular adenoma. AM:lea 08/25/2021 MICROSCOPIC DESCRIPTION Slides are reviewed. GROSS DESCRIPTION Received in fixative is one container labeled with the patient's name and designated sigmoid polyp. The specimen consists of multiple irregular fragments of light morley soft tissue that in aggregate measure 1 x 0.5 x 0.1 cm. The specimen is totally submitted in one cassette. / AM:lea 08/24/2021 TC:5 CPT: 97669
--- NOTE | 2021-08-22 08:39 | OP.EGD_ITS ---
Patient Name: Romi Ellis Procedure Date: 08/22/2021 7:45 AM Date of : 1950 Age: 71 Procedure: Upper GI endoscopy Indications: Hematochezia Providers: Micah Ramesh DO Medicines: See the Anesthesia note for documentation of the administered medications Patient Profile: This is a 71 year old female. Refer to note in patient chart for documentation of history and physical. Patient has symptoms. The symptoms first began August 20,. She is status post colonoscopy (normal) within the past several years. Complications: No immediate complications. Procedure: Pre-Anesthesia Assessment: - Prior to the procedure, a History and Physical was performed, and patient medications and allergies were reviewed. The patient is competent. The risks and benefits of the procedure and the sedation options and risks were discussed with the patient. All questions were answered and informed consent was obtained. Patient identification and proposed procedure were verified by the physician in the pre-procedure area. Mental Status Examination: alert and oriented. Airway Examination: normal oropharyngeal airway and neck mobility. Respiratory Examination: clear to auscultation. CV Examination: normal. Prophylactic Antibiotics: The patient does not require prophylactic antibiotics. Prior Anticoagulants: The patient has taken no previous anticoagulant or antiplatelet agents. ASA Grade Assessment: II - A patient with mild systemic disease. After reviewing the risks and benefits, the patient was deemed in satisfactory condition to undergo the procedure. The anesthesia plan was to use moderate sedation / analgesia (conscious sedation). Immediately prior to administration of medications, the patient was re-assessed for adequacy to receive sedatives. The heart rate, respiratory rate, oxygen saturations, blood pressure, adequacy of pulmonary ventilation, and response to care were monitored throughout the procedure. The physical status of the patient was re-assessed after the procedure. After obtaining informed consent, the endoscope was passed under direct vision. Throughout the procedure, the patient's blood pressure, pulse, and oxygen saturations were monitored continuously. The Colonoscope was introduced through the mouth, and advanced to the second part of duodenum. The upper GI endoscopy was accomplished without difficulty. The patient tolerated the procedure well. Moderate Sedation: Moderate (conscious) sedation was administered by the endoscopy nurse and supervised by the endoscopist. The following parameters were monitored: oxygen saturation, heart rate, blood pressure, and response to care. Total physician intraservice time was 15 minutes. Scope In: 8:06:39 AM Scope Out: 8:10:36 AM Total Procedure Duration Time 0 hours 3 minutes 57 seconds Findings: The examined esophagus was normal. The entire examined stomach was normal. The second portion of the duodenum was normal. Impression: - Normal esophagus. - Normal stomach. - Normal second portion of the duodenum. - No specimens collected. Recommendation: - Discharge patient to home. - Resume previous diet. - Continue present medications. Procedure Code(s): --- Professional --- 36368, Esophagogastroduodenoscopy, flexible, transoral; diagnostic, including collection of specimen(s) by brushing or washing, when performed (separate procedure) 92865, 59, Moderate sedation services provided by the same physician or other qualified health director career services performing the diagnostic or therapeutic service that the sedation supports, requiring the presence of an independent trained observer to assist in the monitoring of the patient's level of consciousness and physiological status; initial 15 minutes of intraservice time, patient age 5 years or older CPT copyright 2017 [employer]. All rights reserved. The codes documented in this report are preliminary and upon research rn spec review may be revised to meet current compliance requirements. Micah Ramesh DO 08/22/2021 8:39:30 AM This report has been signed electronically. Number of Addenda: 1 Note Initiated On: 08/22/2021 7:45 AM Addendum Number: 1 Addendum Date: 02/11/2022 6:43:08 AM MAC was used as sedation for this procedure. Micah Ramesh DO 02/11/2022 6:43:11 AM This report has been signed electronically.
--- NOTE | 2021-08-22 08:40 | OP.CCLET_ITS ---
02/11/2022 Sulma Reagan MD [address] [place] [address] [place] [address] Re : Upper GI endoscopy procedure for Romi Ellis Dear Dr. Reagan This procedure was performed on Sunday, August 22, 2021. My impressions and recommendations are as follows: Impressions : - Normal esophagus. - Normal stomach. - Normal second portion of the duodenum. - No specimens collected. Recommendations : - Discharge patient to home. - Resume previous diet. - Continue present medications. My findings are described in the full procedure note, which is enclosed. If I can be of further assistance, please feel free to contact me at . Sincerely, Micah Ramesh DO 08/22/2021 8:39:30 AM This report has been signed electronically.
--- NOTE | 2021-08-22 08:48 | OP.COLON_ITS ---
Patient Name: Romi Ellis Procedure Date: 08/22/2021 8:10 AM Date of : 1950 Age: 71 Procedure: Colonoscopy Indications: Hematochezia Providers: Micah Ramesh DO Medicines: See the Anesthesia note for documentation of the administered medications Patient Profile: This is a 71 year old female. Refer to note in patient chart for documentation of history and physical. Patient has symptoms. The symptoms first began August 20,. She is status post colonoscopy (normal) within the past several years. She is status post colonoscopy (normal) within the past several years. Last Colonoscopy: 10 years ago. Complications: No immediate complications. Procedure: Pre-Anesthesia Assessment: - Prior to the procedure, a History and Physical was performed, and patient medications and allergies were reviewed. The patient is competent. The risks and benefits of the procedure and the sedation options and risks were discussed with the patient. All questions were answered and informed consent was obtained. Patient identification and proposed procedure were verified by the physician in the pre-procedure area. Mental Status Examination: alert and oriented. Airway Examination: normal oropharyngeal airway and neck mobility. Respiratory Examination: clear to auscultation. CV Examination: normal. Prophylactic Antibiotics: The patient does not require prophylactic antibiotics. Prior Anticoagulants: The patient has taken no previous anticoagulant or antiplatelet agents. ASA Grade Assessment: II - A patient with mild systemic disease. After reviewing the risks and benefits, the patient was deemed in satisfactory condition to undergo the procedure. The anesthesia plan was to use moderate sedation / analgesia (conscious sedation). Immediately prior to administration of medications, the patient was re-assessed for adequacy to receive sedatives. The heart rate, respiratory rate, oxygen saturations, blood pressure, adequacy of pulmonary ventilation, and response to care were monitored throughout the procedure. The physical status of the patient was re-assessed after the procedure. After I obtained informed consent, the scope was passed under direct vision. Throughout the procedure, the patient's blood pressure, pulse, and oxygen saturations were monitored continuously. The Colonoscope was introduced through the anus and advanced to the terminal ileum. The colonoscopy was performed without difficulty. The patient tolerated the procedure well. The quality of the bowel preparation was good. Moderate Sedation: Moderate (conscious) sedation was administered by the endoscopy nurse and supervised by the endoscopist. The patient's oxygen saturation, heart rate, blood pressure and response to care were monitored. Total physician intraservice time was 15 minutes. Scope In: 8:14:18 AM Scope Withdrawal Time 0 hours 14 minutes 1 second Scope Out: 8:31:52 AM Total Procedure Duration Time 0 hours 17 minutes 34 seconds Findings: Hemorrhoids were found on perianal exam. Two sessile polyps were found in the sigmoid colon. The polyps were 1 to 2 mm in size. These polyps were removed with a hot snare. Resection and retrieval were complete. Verification of patient identification for the specimen was done. Estimated blood loss was minimal. Multiple small and large-mouthed diverticula were found in the recto-sigmoid colon, sigmoid colon and descending colon. The exam was otherwise without abnormality on direct and retroflexion views. Non-bleeding external and internal hemorrhoids were found during retroflexion. The hemorrhoids were Grade III (internal hemorrhoids that prolapse but require manual reduction). The terminal ileum appeared normal. Impression: - Hemorrhoids found on perianal exam. - Two 1 to 2 mm polyps in the sigmoid colon, removed with a hot snare. Resected and retrieved. - Diverticulosis in the recto-sigmoid colon, in the sigmoid colon and in the descending colon. - The examination was otherwise normal on direct and retroflexion views. - Non-bleeding external and internal hemorrhoids. - The examined portion of the ileum was normal. Recommendation: - [facility]. - Resume regular diet. - Continue present medications. - Await pathology results. - Repeat colonoscopy in 5 years for surveillance based on pathology results. Procedure Code(s): --- Professional --- 09801, Colonoscopy, flexible; with removal of tumor(s), polyp(s), or other lesion(s) by snare technique 43323, 59, Moderate sedation services provided by the same physician or other qualified health disabilities caregiver performing the diagnostic or therapeutic service that the sedation supports, requiring the presence of an independent trained observer to assist in the monitoring of the patient's level of consciousness and physiological status; initial 15 minutes of intraservice time, patient age 5 years or older CPT copyright 2017 [employer]. All rights reserved. The codes documented in this report are preliminary and upon hospital coder review may be revised to meet current compliance requirements. Micah Ramesh DO 08/22/2021 8:48:11 AM This report has been signed electronically. Number of Addenda: 1 Note Initiated On: 08/22/2021 8:10 AM Addendum Number: 1 Addendum Date: 02/11/2022 6:43:19 AM MAC was used as sedation for this procedure. Micah Ramesh DO 02/11/2022 6:43:23 AM This report has been signed electronically.
--- NOTE | 2021-08-22 08:49 | OP.CCLET_ITS ---
02/11/2022 Sulma Reagan MD [address] [address] [place] [address] Re : Colonoscopy procedure for Romi Ellis Dear Dr. Reagan This procedure was performed on Sunday, August 22, 2021. My impressions and recommendations are as follows: Impressions : - Hemorrhoids found on perianal exam. - Two 1 to 2 mm polyps in the sigmoid colon, removed with a hot snare. Resected and retrieved. - Diverticulosis in the recto-sigmoid colon, in the sigmoid colon and in the descending colon. - The examination was otherwise normal on direct and retroflexion views. - Non-bleeding external and internal hemorrhoids. - The examined portion of the ileum was normal. Recommendations : - [facility]. - Resume regular diet. - Continue present medications. - Await pathology results. - Repeat colonoscopy in 5 years for surveillance based on pathology results. My findings are described in the full procedure note, which is enclosed. If I can be of further assistance, please feel free to contact me at . Sincerely, Micah Ramesh DO 08/22/2021 8:48:11 AM This report has been signed electronically.
[2021-08-22] MEDS: Metoprolol Tartrate 50 MG Tablet PO (09:20)
[2021-08-22] MEDS: amLODIPine 10 MG Tablet PO (09:20)
[2021-08-22] MEDS: Sertraline 100 MG Tablet PO (09:20)
[2021-08-22] MEDS: Ascorbic Acid 500 MG Tablet PO (09:20)
--- NOTE | 2021-08-22 14:01 | CASEMGMT ---
Social Work Consult: Return to SNF Referral source: Met with patient in room. Introduced self and social media editor role. Patient agreeable to speak with this social media editor. Patient confirms to be staying at [facility] and plans to return. Patient reports to be private pay at [facility]. This social media editor inquired as to who patient would like contacted in regards to patient discharge plan. Patient states no one. Patient states to be talking with family and declines this social media editor contacting family members in regards to patient care/plan. Patient alert and oriented x3. Telephone call to [facility], Shellie. 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 This social media editor updated Dr. Lopez on above information. Nursing updated on above. Green sheet placed on patient chart in the event that patient is medically cleared for discharge. PLAN: Return to [facility]. No further needs requested or identified. Lizbeth GR, LONG
--- NOTE | 2021-08-22 15:52 | DS.PCM_ITS ---
Providers Date of Admission: 08/21/21 Primary Care Physician: Dr. Sulma Reagan MD Consultations 08/21/21 16:54 Consult: Gastroenterology Routine Consulting Provider: [facility] Reason for Consult: lower GI bleed EMERGENT Consult: No MD Notified: Yes Date Notified: 08/21/21 Time Notified: 16:36 Method of Notification: Text Reason For Visit: LOWER GI BLEED Diagnosis Discharge Diagnosis (1) Acute GI bleeding: Status: Acute Code(s): K92.2 - Gastrointestinal hemorrhage, unspecified Medications at Discharge Home Medications apixaban 5 mg tablet 5 mg PO BID #180 tab 10/20/20 amlodipine 10 mg tablet 10 mg PO DAILY #90 tab 12/01/20 losartan 50 mg tablet 50 mg PO BID #180 tab 12/01/20 simvastatin 20 mg tablet 20 mg PO QHS #90 tab 12/01/20 glimepiride 2 mg tablet 2 mg PO BID #180 tab 12/12/20 metoprolol tartrate 50 mg tablet 50 mg PO BID #60 tab 12/12/20 oxybutynin chloride 15 mg tablet,extended release 24 hr 15 mg PO DAILY #90 tab 0 01/22/21 ferrous sulfate 325 mg PO DAILY 01/27/21 furosemide 40 mg PO DAILY 01/27/21 metformin 1,000 mg PO BID 01/27/21 calcium 600 mg PO BID 02/25/21 multivitamin 1 cap PO DAILY 02/25/21 bisacodyl 10 mg PO DAILY PRN #0 tab 03/16/21 sennosides-docusate sodium [Stool Softener-Stimulant Laxat] 2 tab PO BID #0 tab 03/16/21 Tradjenta 5 mg PO DAILY 08/21/21 ascorbic acid (vitamin C) [Vitamin C] 500 mg PO DAILY 08/21/21 melatonin 3 mg PO QHS 08/21/21 sertraline [Zoloft] 100 mg PO DAILY 08/21/21 Hospital Course Operations None Procedures Colonoscopy and EGD Summary of Care Provided Minutes Spent on Discharge: 45 Hospital Course: JOSELINE RIDDLE, is a 71 F with an extensive PMh as outlined who presents via the ED on 08/21/2021 with a complaint of questionable GI bleed. She has a history of afib diagnosed 7 years ago, but hasnt been in afib since then. She was admitted from her ECF with a complaint of bright red blood per rectum. SHe denied any dizziness, lightheadedness, nausea, vomiting or abdominal pain. She hasnt had such symptoms before. She has been compliant with her eliquis. She is in the ECF o/a of a recent right elbow fracture. She denied any coffee ground emesis or any vomiting of blood. Review of systems was otherwise negative. Vitals in the ED were BP of 150/83, DC of 77, RR of 18 and temp of 98.6F. She was saturating at 94% on room air. CBC showed hb of 10.6, with wbc of 8.1 and platelets of 287. Chemistry showed sodium of 139 and Cr of 1.3, with potassium of 4.2. Urinalysis showed rare bacteria, positive nitrites and leucocyte esterase of 500. Stool for occult blood was positive. She was admitted to be managed for lower GI bleed. She was kept n.p.o. and hydrated with IV fluids. Gastroenterology was consulted. She had EGD on 08/22/2021 which showed normal esophagus and stomach as well as normal second portion of the duodenum. She had colonoscopy which showed hemorrhoids found on perianal exam as well as 1 to 2 mm polyps, 2 of them in the sigmoid colon which were retrieved with a hot snare. She also had diverticulosis in the rectosigmoid colon, in the sigmoid colon and descending colon. Patient remained stable and hemoglobin remained stable throughout and she did not require transfusion. Per gastroenterology, patient was safe to resume her Eliquis. She remained stable and was discharged back [facility] facility on 08/22/2021 and is cleared to resume her Eliquis. She is to follow-up with her primary care doctor and with gastroenterology in 2 to 3 weeks. Patient seen and examined prior to discharge. She had no active complaints and had an uneventful night. She felt well and review of systems otherwise negative. Labs and vitals reviewed. Home medication reviewed and reconciled. Physical Exam Const alert, oriented x3 and no apparent distress General Appearance: cooperative and comfortable HEENT normocephalic, head/scalp atraumatic, hearing grossly normal bilaterally and moist oral mucous membranes Eyes PERRL, EOMs intact bilaterally and conjunctivae normal Neck no lymphadenopathy and supple Resp normal respiratory effort, no retractions, no use of accessory muscles and clear to auscultation bilaterally Cardio regular rate, regular rhythm, S1 normal heart sound, S2 normal heart sound and no murmurs GI normal to inspection, nondistended, normoactive bowel sounds, soft to palpation, non-tender and non-distended Extremity normal to inspection and no clubbing, cyanosis or edema Extremity Narrative: RUE in sling Skin no rashes or lesions noted Neuro oriented x3, CN's II-XII intact bilaterally and moves all extremities Sensorium / Orientation: awake and alert Psych affect normal Weight / BMI Weight Weight: 204 lb 2.369 oz Body Mass Index (BMI) 38.5 ABG / Lab / Microbiology Data Result Diagrams: 08/22/21 06:57 08/22/21 06:57 Laboratory: Laboratory Results - last 24 hr 08/21/21 17:13: POC Glucose 148 H 08/22/21 06:57: WBC 6.9, RBC 3.76 L, Hgb 10.2 L, Hct 31.5 L, MCV 83.8, MCH 27.1, MCHC 32.4, RDW Std Deviation 45.2 H, RDW Coeff of Zee 14.9 H, Plt Count 229, MPV 9.9, Immature Gran % (Auto) 0.300, Neut % (Auto) 65.5, Lymph % (Auto) 22.9, [place] % (Auto) 6.2, Eos % (Auto) 4.8, Baso % (Auto) 0.3, Absolute Neuts (auto) 4.5, Absolute Lymphs (auto) 1.58, Nucleated RBC % 0 08/22/21 06:57: Sodium 136, Potassium 3.8, Chloride 107, Carbon Dioxide 24.0, Anion Gap 5, BUN 20 H, Creatinine 1.04 H, Estim Creat Clear Calc 38.52, Est GFR (MDRD) Af Amer 68, Est GFR (MDRD) Non-Af 56 L, BUN/Creatinine Ratio 19.2, Glucose 146 H, Calcium 9.1 08/22/21 06:57: Hemoglobin A1c 6.2 H Microbiology: Microbiology 08/21/21 12:15 Stool Stool Occult Blood (LATISHA) - Final Occult Blood Positive Radiography Diagnostic Testing: Radiology Impression Chest X-Ray 08/22/21 05:00 IMPRESSION: No acute cardiopulmonary disease. Electronically Signed: William Franco MD at 6:29 EDT , D/C Instructions Discharge Diet: Low fat / Low cholesterol Discharge Activity: Return to Normal Activity Weight Bearing Status: Weight bearing as tolerated Call your doctor if you observe: Fever of 101 or Higher, Shortness of breath, Dizziness, Swelling in the ankles, Chest pain and Increased palpitations (irregular heartbeat) Meaningful Use Info Meaningful Use Diagnoses (Choose all that apply): None applicable Discharge Plan Admission Admit Date/Time: 08/21/21 14:23 Primary Reason for Your Visit: lower GI bleed Attending Provider: Kisha Lopez Primary Care Provider: Sulma Reagan Instructions Patient Instructions: ED Lower GI Bleeding (Stable) Discharge Orders/Prescriptions Prescriptions: Continued furosemide 40 mg tablet 40 mg PO DAILY RF: 0 ferrous sulfate 325 mg (65 mg iron) tablet 325 mg PO DAILY RF: 0 metformin 1,000 mg tablet 1,000 mg PO BID RF: 0 calcium 600 mg Capsule 600 mg PO BID RF: 0 multivitamin Capsule 1 cap PO DAILY RF: 0 sennosides-docusate sodium [Stool Softener-Stimulant Laxat] 8.6-50 mg Tablet 2 tab PO BID Qty: 0 RF: 0 bisacodyl 5 mg Tablet,Delayed Release (Dr/Ec) 10 mg PO DAILY PRN (Reason: Constipation) Qty: 0 RF: 0 melatonin 3 mg Tablet 3 mg PO QHS RF: 0 ascorbic acid (vitamin C) [Vitamin C] 500 mg Tablet 500 mg PO DAILY RF: 0 Tradjenta 5 mg Tablet 5 mg PO DAILY RF: 0 sertraline [Zoloft] 100 mg tablet 100 mg PO DAILY RF: 0 apixaban 5 mg tablet 5 mg PO BID Qty: 180 RF: 3 amlodipine 10 mg tablet 10 mg PO DAILY Qty: 90 RF: 3 losartan 50 mg tablet 50 mg PO BID Qty: 180 RF: 3 simvastatin 20 mg tablet 20 mg PO QHS Qty: 90 RF: 3 metoprolol tartrate 50 mg tablet 50 mg PO BID Qty: 60 RF: 1 glimepiride 2 mg tablet 2 mg PO BID Qty: 180 RF: 3 oxybutynin chloride 15 mg tablet extended release 24hr 15 mg PO DAILY Qty: 90 RF: 1 Referrals / Follow Up: Sulma Reagan MD [Primary Care Provider] - Within 2 Weeks Disposition Disposition (needs filled in before D/C Order can be placed): Detention Facility Charges/Coding Visit Charges Inpatient E&M: 12488 Disch Hosp
--- NOTE | 2021-08-22 16:01 | TREXTCAR_ITS ---
Diet 08/22/21 08:40 Diet: Cardiac - Heart Healthy Is pt able to select menu?: Yes Routine Orders/Code Status Enema Type: Fleetz Enema Frequency: Daily PRN Suppository Type: Dulcolax 10mg Suppository Frequency: Daily PRN O2 Frequency: PRN Keep PO Greater than or Equal to (%): 90 Wound(s) s/p rt elbow replacement: Wound Type: Surgical Incision Therapies Weight Bearing: Non weight bearing Physical Therapy: Eval and Treat Occupational Therapy: Eval and Treat Problem/Diagnosis (1) Acute GI bleeding: Status: Acute Allergies/Procedures Done in Hospital Allergies fosinopril [From Monopril] Allergy (Unknown, Verified 08/21/21 11:58) unknown pioglitazone Adverse Reaction (Verified 08/21/21 11:58) Other Type of Care/Length of Stay Estimated LOS: Convalescent Care Less Than 30 days Type of Care Needed: Intermediate Rehab Potential: Fair Prognosis: Fair Additional Orders/Day of Discharge Day of Discharge: 08/22/21 Discharge Plan Admission Admit Date/Time: 08/21/21 14:23 Primary Reason for Your Visit: lower GI bleed Attending Provider: Kisha Lopez Primary Care Provider: Sulma Reagan Instructions Patient Instructions: ED Lower GI Bleeding (Stable) Discharge Orders/Prescriptions Prescriptions: Continued furosemide 40 mg tablet 40 mg PO DAILY RF: 0 ferrous sulfate 325 mg (65 mg iron) tablet 325 mg PO DAILY RF: 0 metformin 1,000 mg tablet 1,000 mg PO BID RF: 0 calcium 600 mg Capsule 600 mg PO BID RF: 0 multivitamin Capsule 1 cap PO DAILY RF: 0 sennosides-docusate sodium [Stool Softener-Stimulant Laxat] 8.6-50 mg Tablet 2 tab PO BID Qty: 0 RF: 0 bisacodyl 5 mg Tablet,Delayed Release (Dr/Ec) 10 mg PO DAILY PRN (Reason: Constipation) Qty: 0 RF: 0 melatonin 3 mg Tablet 3 mg PO QHS RF: 0 ascorbic acid (vitamin C) [Vitamin C] 500 mg Tablet 500 mg PO DAILY RF: 0 Tradjenta 5 mg Tablet 5 mg PO DAILY RF: 0 sertraline [Zoloft] 100 mg tablet 100 mg PO DAILY RF: 0 apixaban 5 mg tablet 5 mg PO BID Qty: 180 RF: 3 amlodipine 10 mg tablet 10 mg PO DAILY Qty: 90 RF: 3 losartan 50 mg tablet 50 mg PO BID Qty: 180 RF: 3 simvastatin 20 mg tablet 20 mg PO QHS Qty: 90 RF: 3 metoprolol tartrate 50 mg tablet 50 mg PO BID Qty: 60 RF: 1 glimepiride 2 mg tablet 2 mg PO BID Qty: 180 RF: 3 oxybutynin chloride 15 mg tablet extended release 24hr 15 mg PO DAILY Qty: 90 RF: 1 Referrals / Follow Up: Sulma Reagan MD [Primary Care Provider] - Within 2 Weeks Disposition Disposition (needs filled in before D/C Order can be placed): Senior Living Facility
--- NOTE | 2021-08-22 16:49 | NURSING ---
Report called to [facility]. Patients iv removed and belongings sent with [facility] transport.
== END 2021-08-22 17:41 | DRG 379 ==
LOC: ED 14:25 → MS3 14:48
PROVIDERS: Anesthesiology; Internal Medicine Gastroenterology; Admitting Provider Student in an Organized Health Care Education/Training Program; Emergency Provider Emergency Medicine; PCP Internal Medicine; Visit Provider Student in an Organized Health Care Education/Training Program
PROC: 0DJD8ZZ Inspection of Lower Intestinal Tract, Via Natural or Artificial Opening Endoscopic (ICD-10-PCS; CPT 45378; principal; 2021-08-22 08:00)
DX: K92.1 Melena (principal); I27.20 Pulmonary hypertension, unspecified; E11.22 Type 2 diabetes mellitus with diabetic chronic kidney disease; E11.40 Type 2 diabetes mellitus with diabetic neuropathy, unspecified; D12.5 Benign neoplasm of sigmoid colon; D50.9 Iron deficiency anemia, unspecified; E66.01 Morbid (severe) obesity due to excess calories; I48.0 Paroxysmal atrial fibrillation; N18.32 Chronic kidney disease, stage 3b; E78.00 Pure hypercholesterolemia, unspecified; F41.9 Anxiety disorder, unspecified; M19.90 Unspecified osteoarthritis, unspecified site; I35.0 Nonrheumatic aortic (valve) stenosis; G47.33 Obstructive sleep apnea (adult) (pediatric); I87.2 Venous insufficiency (chronic) (peripheral); E78.5 Hyperlipidemia, unspecified; I12.9 Hypertensive chronic kidney disease with stage 1 through stage 4 chronic kidney disease, or unspecified chronic kidney disease; I34.2 Nonrheumatic mitral (valve) stenosis; K57.30 Diverticulosis of large intestine without perforation or abscess without bleeding; K64.4 Residual hemorrhoidal skin tags; K64.2 Third degree hemorrhoids; F32.A Depression, unspecified; Z86.73 Personal history of transient ischemic attack (TIA), and cerebral infarction without residual deficits; Z87.440 Personal history of urinary (tract) infections; M81.0 Age-related osteoporosis without current pathological fracture; Z79.01 Long term (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; Z79.899 Other long term (current) drug therapy; Z79.84 Long term (current) use of oral hypoglycemic drugs; Z87.891 Personal history of nicotine dependence; R53.81 Other malaise; Z87.19 Personal history of other diseases of the digestive system; G89.29 Other chronic pain; Z68.38 Body mass index [BMI] 38.0-38.9, adult
CPT/HCPCS: 36415; 71045; 80048; 80053; 81001; 82274; 82962; 83036; 85025; 86850; 86900; 86901; 88305; 93005; 97162; 97165; 99285; J7030; J7050; A4216

== ENCOUNTER → 2021-08-27 | Outpatient (REF) | payer MEDICARE, SELFPAY ==
[2021-08-27 08:21] LABS: Absolute Lymphocyte Count 2.03 X10^3/uL (0.83-4.51); Absolute Neutrophil Count 5.1 X10^3/uL (2.0-7.7); Basophil# 0.04 X10^3/uL; Basophil% 0.5 % (0-1); Eosinophil# 0.36 X10^3/uL; Eosinophils% 4.4 % (0-5); Hematocrit 30.1 % (37-47); Hemoglobin 9.4 g/dL (12.0-15.0); Lymphocyte # 2.03 X10^3/ul (0.83-4.51); Lymphocyte % 25.1 % (19-41); Mean Corp Hgb Conc 31.2 g/dL (32-36); Mean Corpuscular Hgb 26.6 pg (27.0-32.0); Mean Corpuscular Volume 85.3 fL (81-99); Mean Platelet Vol. 10.2 fl (6.2-12.0); Monocyte# 0.53 X10^3/uL; Monocyte% 6.5 % (0-10); NRBC Flagged by Analyzer 0 % (0-5); Platelet Count 233 K/mm3 (150-450); RBC Distribution Width CV 15.6 % (11.6-14.6); RBC Distribution Width SD 48.4 fl (35.1-43.9); Red Blood Count 3.53 M/mm3 (4.2-5.4); White Blood Count 8.1 K/mm3 (4.4-11.0)
[2021-08-27 08:29] LABS: ALB/GLOB Ratio 0.8 RATIO (0.9-2.4); AST(SGOT) 18 U/L (15-37); Alanine Aminotransfer ALT/SGPT 24 U/L (13-56); Albumin, Serum 3.1 g/dL (3.2-5.0); Alkaline Phosphatase 76 U/L (45-117); Anion Gap 4 (5-15); BUN 40 mg/dL (7-18); Chloride 106 mmol/L (98-107); Creatinine, Serum 1.48 mg/dL (0.55-1.02); EST Glomerular Filtration Rate 37 mL/min (>60); Est Glom Filt Rate - Afr Amer 45 mL/min (>60); Globulin 3.8 g/dL (2.2-4.2); Glucose 75 mg/dL (74-106); Potassium 4.1 mmol/L (3.5-5.1); Protein, Total 6.9 g/dL (6.4-8.2); Sodium Level 138 mmol/L (136-145)
== END | disposition home or self-care (01) ==
LOC: OLS.SW300 04:00
PROVIDERS: PCP Internal Medicine; Referring Provider Family Medicine; Visit Provider Family Medicine
DX: R68.89 Other general symptoms and signs (principal); Z13.228 Encounter for screening for other metabolic disorders
CPT/HCPCS: 36415; 80053; 85025

== ENCOUNTER → 2021-09-03 | Outpatient (REF) | payer MEDICARE, SELFPAY ==
[2021-09-03 07:18] LABS: Absolute Lymphocyte Count 2.21 X10^3/uL (0.83-4.51); Absolute Neutrophil Count 5.3 X10^3/uL (2.0-7.7); Basophil# 0.04 X10^3/uL; Basophil% 0.5 % (0-1); Eosinophil# 0.37 X10^3/uL; Eosinophils% 4.4 % (0-5); Hematocrit 34.5 % (37-47); Hemoglobin 10.7 g/dL (12.0-15.0); Lymphocyte # 2.21 X10^3/ul (0.83-4.51); Lymphocyte % 26.2 % (19-41); Mean Corpuscular Hgb 26.8 pg (27.0-32.0); Mean Corpuscular Volume 86.3 fL (81-99); Mean Platelet Vol. 10.6 fl (6.2-12.0); Monocyte# 0.46 X10^3/uL; Monocyte% 5.4 % (0-10); NRBC Flagged by Analyzer 0 % (0-5); Neutrophil # 5.34 X10^3/uL (2.7-7.7); Neutrophil % 63.1 % (47-70); Platelet Count 253 K/mm3 (150-450); RBC Distribution Width SD 48.1 fl (35.1-43.9); White Blood Count 8.5 K/mm3 (4.4-11.0)
[2021-09-03 07:33] LABS: ALB/GLOB Ratio 0.8 RATIO (0.9-2.4); AST(SGOT) 20 U/L (15-37); Alanine Aminotransfer ALT/SGPT 24 U/L (13-56); Albumin, Serum 3.4 g/dL (3.2-5.0); Alkaline Phosphatase 77 U/L (45-117); Anion Gap 6 (5-15); BUN 31 mg/dL (7-18); BUN/Creat Ratio 23.3 RATIO (10-20); Calcium,Total 9.2 mg/dL (8.5-10.1); Chloride 104 mmol/L (98-107); Creatinine, Serum 1.33 mg/dL (0.55-1.02); EST Glomerular Filtration Rate 42 mL/min (>60); Est Glom Filt Rate - Afr Amer 51 mL/min (>60); Glucose 72 mg/dL (74-106); Potassium 4.1 mmol/L (3.5-5.1); Protein, Total 7.4 g/dL (6.4-8.2); Sodium Level 139 mmol/L (136-145)
== END | disposition home or self-care (01) ==
LOC: OLS.SW300 05:00
PROVIDERS: PCP Internal Medicine; Referring Provider Family Medicine; Visit Provider Family Medicine
DX: E11.9 Type 2 diabetes mellitus without complications (principal)
CPT/HCPCS: 36415; 80053; 85025

== ENCOUNTER → 2021-09-10 | Outpatient (REF) | payer MEDICARE, SELFPAY ==
[2021-09-10 07:44] LABS: Absolute Lymphocyte Count 1.89 X10^3/uL (0.83-4.51); Absolute Neutrophil Count 4.6 X10^3/uL (2.0-7.7); Basophil# 0.03 X10^3/uL; Basophil% 0.4 % (0-1); Eosinophils% 5.4 % (0-5); Hematocrit 33.7 % (37-47); Hemoglobin 10.2 g/dL (12.0-15.0); Lymphocyte # 1.89 X10^3/ul (0.83-4.51); Lymphocyte % 25.4 % (19-41); Mean Corp Hgb Conc 30.3 g/dL (32-36); Mean Corpuscular Hgb 26.6 pg (27.0-32.0); Mean Corpuscular Volume 87.8 fL (81-99); Mean Platelet Vol. 10.5 fl (6.2-12.0); Monocyte# 0.52 X10^3/uL; NRBC Flagged by Analyzer 0 % (0-5); Neutrophil # 4.58 X10^3/uL (2.7-7.7); Neutrophil % 61.4 % (47-70); Platelet Count 249 K/mm3 (150-450); RBC Distribution Width CV 15.3 % (11.6-14.6); RBC Distribution Width SD 48.5 fl (35.1-43.9); Red Blood Count 3.84 M/mm3 (4.2-5.4); White Blood Count 7.5 K/mm3 (4.4-11.0)
[2021-09-10 08:08] LABS: ALB/GLOB Ratio 0.9 RATIO (0.9-2.4); AST(SGOT) 17 U/L (15-37); Alanine Aminotransfer ALT/SGPT 23 U/L (13-56); Albumin, Serum 3.4 g/dL (3.2-5.0); Alkaline Phosphatase 68 U/L (45-117); Anion Gap 3 (5-15); BUN 31 mg/dL (7-18); BUN/Creat Ratio 23.5 RATIO (10-20); Calcium,Total 9.2 mg/dL (8.5-10.1); Chloride 105 mmol/L (98-107); Creatinine, Serum 1.32 mg/dL (0.55-1.02); EST Glomerular Filtration Rate 42 mL/min (>60); Est Glom Filt Rate - Afr Amer 51 mL/min (>60); Globulin 3.8 g/dL (2.2-4.2); Glucose 68 mg/dL (74-106); Protein, Total 7.2 g/dL (6.4-8.2); Sodium Level 140 mmol/L (136-145)
== END | disposition home or self-care (01) ==
LOC: OLS.SW300 04:00
PROVIDERS: PCP Internal Medicine; Visit Provider Family Medicine
DX: I10 Essential (primary) hypertension (principal); E11.9 Type 2 diabetes mellitus without complications
CPT/HCPCS: 36415; 80053; 85025

== ENCOUNTER → 2021-09-17 | Outpatient (REF) | payer MEDICARE, SELFPAY ==
[2021-09-17 06:09] LABS: Absolute Lymphocyte Count 1.95 X10^3/uL (0.83-4.51); Absolute Neutrophil Count 5.7 X10^3/uL (2.0-7.7); Basophil# 0.03 X10^3/uL; Basophil% 0.4 % (0-1); Eosinophil# 0.32 X10^3/uL; Eosinophils% 3.8 % (0-5); Hematocrit 30.6 % (37-47); Hemoglobin 9.6 g/dL (12.0-15.0); Lymphocyte # 1.95 X10^3/ul (0.83-4.51); Lymphocyte % 22.9 % (19-41); Mean Corp Hgb Conc 31.4 g/dL (32-36); Mean Platelet Vol. 10.3 fl (6.2-12.0); Monocyte# 0.45 X10^3/uL; Monocyte% 5.3 % (0-10); NRBC Flagged by Analyzer 0 % (0-5); Neutrophil # 5.72 X10^3/uL (2.7-7.7); Neutrophil % 67.2 % (47-70); Platelet Count 232 K/mm3 (150-450); RBC Distribution Width SD 47.5 fl (35.1-43.9); Red Blood Count 3.56 M/mm3 (4.2-5.4); White Blood Count 8.5 K/mm3 (4.4-11.0)
[2021-09-17 06:36] LABS: Anion Gap 6 (5-15); BUN 36 mg/dL (7-18); BUN/Creat Ratio 20.5 RATIO (10-20); Calcium,Total 8.6 mg/dL (8.5-10.1); Chloride 105 mmol/L (98-107); Creatinine, Serum 1.76 mg/dL (0.55-1.02); EST Glomerular Filtration Rate 30 mL/min (>60); Est Glom Filt Rate - Afr Amer 37 mL/min (>60); Glucose 115 mg/dL (74-106); Potassium 3.9 mmol/L (3.5-5.1); Sodium Level 139 mmol/L (136-145)
== END | disposition home or self-care (01) ==
LOC: OLS.SW300 05:00
PROVIDERS: PCP Internal Medicine; Visit Provider Family Medicine
DX: I10 Essential (primary) hypertension (principal); E11.9 Type 2 diabetes mellitus without complications
CPT/HCPCS: 36415; 80048; 85025

== ENCOUNTER → 2021-12-02 | Outpatient (CLI) | payer MEDICARE, SELFPAY ==
[2021-12-02 12:12] LABS: Absolute Lymphocyte Count 1.56 X10^3/uL (0.83-4.51); Absolute Neutrophil Count 6.3 X10^3/uL (2.0-7.7); Basophil# 0.06 X10^3/uL; Basophil% 0.7 % (0-1); Eosinophil# 0.28 X10^3/uL; Eosinophils% 3.2 % (0-5); Hemoglobin 11.7 g/dL (12.0-15.0); Lymphocyte # 1.56 X10^3/ul (0.83-4.51); Lymphocyte % 17.8 % (19-41); Mean Corp Hgb Conc 30.8 g/dL (32-36); Mean Corpuscular Hgb 26.8 pg (27.0-32.0); Mean Corpuscular Volume 87.2 fL (81-99); Mean Platelet Vol. 10.8 fl (6.2-12.0); Monocyte# 0.45 X10^3/uL; Monocyte% 5.1 % (0-10); NRBC Flagged by Analyzer 0 % (0-5); Neutrophil # 6.27 X10^3/uL (2.7-7.7); Neutrophil % 71.7 % (47-70); Platelet Count 271 K/mm3 (150-450); RBC Distribution Width CV 14.6 % (11.6-14.6); RBC Distribution Width SD 46.9 fl (35.1-43.9); Red Blood Count 4.36 M/mm3 (4.2-5.4); White Blood Count 8.8 K/mm3 (4.4-11.0)
[2021-12-02 12:43] LABS: ALB/GLOB Ratio 0.8 RATIO (0.9-2.4); AST(SGOT) 18 U/L (15-37); Alanine Aminotransfer ALT/SGPT 23 U/L (13-56); Albumin, Serum 3.5 g/dL (3.2-5.0); Alkaline Phosphatase 75 U/L (45-117); Anion Gap 8 (5-15); BUN 39 mg/dL (7-18); BUN/Creat Ratio 29.3 RATIO (10-20); Calcium,Total 9.6 mg/dL (8.5-10.1); Chloride 107 mmol/L (98-107); Creatinine, Serum 1.33 mg/dL (0.55-1.02); EST Glomerular Filtration Rate 42 mL/min (>60); Est Glom Filt Rate - Afr Amer 51 mL/min (>60); Globulin 4.3 g/dL (2.2-4.2); Glucose 147 mg/dL (74-106); Potassium 4.1 mmol/L (3.5-5.1); Protein, Total 7.8 g/dL (6.4-8.2); Sodium Level 142 mmol/L (136-145)
[2021-12-02 12:51] LABS: Hemoglobin A1c 6.1 % (3.8-5.6)
== END | disposition home or self-care (01) ==
PROVIDERS: PCP Internal Medicine; Referring Provider Internal Medicine; Visit Provider Internal Medicine
DX: I10 Essential (primary) hypertension (principal); E11.9 Type 2 diabetes mellitus without complications; E78.5 Hyperlipidemia, unspecified
CPT/HCPCS: 36415; 80053; 83036; 85025

== ENCOUNTER → 2022-03-03 | Outpatient (CLI) | payer MEDICARE, SELFPAY ==
[2022-03-03 15:28] LABS: Anion Gap 6 (5-15); BUN 29 mg/dL (7-18); BUN/Creat Ratio 24.4 RATIO (10-20); Calcium,Total 9.5 mg/dL (8.5-10.1); Chloride 110 mmol/L (98-107); Creatinine, Serum 1.19 mg/dL (0.55-1.02); EST Glomerular Filtration Rate 48 mL/min (>60); Est Glom Filt Rate - Afr Amer 58 mL/min (>60); Glucose 130 mg/dL (74-106); Potassium 4.6 mmol/L (3.5-5.1); Sodium Level 142 mmol/L (136-145)
[2022-03-03 15:34] LABS: Vitamin D,25 Hydroxy 43.2 ng/mL
[2022-03-03 15:41] LABS: Hemoglobin A1c 6.1 % (3.8-5.6)
== END | disposition home or self-care (01) ==
LOC: BIMLAB 12:06
PROVIDERS: PCP Internal Medicine; Referring Provider Internal Medicine; Visit Provider Internal Medicine
DX: E11.9 Type 2 diabetes mellitus without complications (principal); M81.0 Age-related osteoporosis without current pathological fracture
CPT/HCPCS: 36415; 80048; 82306; 83036

== ENCOUNTER → 2022-06-04 | Outpatient (CLI) | payer MEDICARE, SELFPAY ==
[2022-06-04 12:28] LABS: Absolute Lymphocyte Count 1.82 X10^3/uL (0.83-4.51); Absolute Neutrophil Count 6.4 X10^3/uL (2.0-7.7); Basophil# 0.04 X10^3/uL; Basophil% 0.4 % (0-1); Eosinophil# 0.33 X10^3/uL; Eosinophils% 3.6 % (0-5); Hematocrit 38.1 % (37-47); Hemoglobin 11.8 g/dL (12.0-15.0); Lymphocyte # 1.82 X10^3/ul (0.83-4.51); Lymphocyte % 19.9 % (19-41); Mean Corpuscular Hgb 27.4 pg (27.0-32.0); Mean Corpuscular Volume 88.6 fL (81-99); Mean Platelet Vol. 10.3 fl (6.2-12.0); Monocyte# 0.52 X10^3/uL; Monocyte% 5.7 % (0-10); NRBC Flagged by Analyzer 0 % (0-5); Neutrophil # 6.42 X10^3/uL (2.7-7.7); Neutrophil % 70.1 % (47-70); Platelet Count 305 K/mm3 (150-450); RBC Distribution Width CV 15.3 % (11.6-14.6); RBC Distribution Width SD 48.9 fl (35.1-43.9); White Blood Count 9.2 K/mm3 (4.4-11.0)
[2022-06-04 12:55] LABS: ALB/GLOB Ratio 0.8 RATIO (0.9-2.4); AST(SGOT) 22 U/L (15-37); Alanine Aminotransfer ALT/SGPT 27 U/L (13-56); Albumin, Serum 3.7 g/dL (3.2-5.0); Alkaline Phosphatase 65 U/L (45-117); Anion Gap 6 (5-15); BUN 40 mg/dL (7-18); BUN/Creat Ratio 29.4 RATIO (10-20); Calcium,Total 10.2 mg/dL (8.5-10.1); Chloride 106 mmol/L (98-107); Cholesterol 185 mg/dL (200); Creatinine, Serum 1.36 mg/dL (0.55-1.02); EST Glomerular Filtration Rate 41 mL/min (>60); Est Glom Filt Rate - Afr Amer 49 mL/min (>60); Globulin 4.5 g/dL (2.2-4.2); Glucose 102 mg/dL (74-106); High Density Lipoprotein 62 mg/dL; Potassium 4.4 mmol/L (3.5-5.1); Protein, Total 8.2 g/dL (6.4-8.2); Sodium Level 139 mmol/L (136-145); Triglycerides 158 mg/dL; Very Low Density Lipoprotein 32 mg/dL (5-40)
== END | disposition home or self-care (01) ==
PROVIDERS: PCP Internal Medicine; Referring Provider Internal Medicine; Visit Provider Internal Medicine
DX: E11.9 Type 2 diabetes mellitus without complications (principal)
CPT/HCPCS: 36415; 80053; 80061; 82043; 82570; 85025

== ENCOUNTER 2022-07-03 10:50 | Outpatient (RCR) | payer MEDICARE, SELFPAY ==
[2022-07-03 11:49] LABS: International Normalized Ratio 2.5; Prothrombin Time (Protime)PT. 26.4 SECONDS (11.7-14.9)
== END 2022-07-03 18:00 | disposition home or self-care (01) ==
LOC: LAB 10:50
PROVIDERS: PCP Internal Medicine; Referring Provider Internal Medicine; Visit Provider Internal Medicine
DX: I48.0 Paroxysmal atrial fibrillation (principal)
CPT/HCPCS: 36415; 85610

== ENCOUNTER 2022-07-06 13:45 | Emergency (ER) | payer MEDICARE, SELFPAY ==
[2022-07-06 13:46] VITALS: BP 159/73; PULSE 67; RESP 16; TEMP 36.3; O2SAT 98
[2022-07-06 14:13] VITALS: BP 159/73; PULSE 67; RESP 16; TEMP 36.3; O2SAT 98
--- NOTE | 2022-07-06 14:48 | EDS_ITS ---
HPI History of Present Illness Chief Complaint: Cellulitis Informant: patient Onset/Context/Timing Onset: Days (5) Context: Gradual Onset Timing: Continuous Quality: Dull Location: Right middle finger Worsened by: Nothing Relieved by: Nothing Narrative Narrative: Patient presents with redness and swelling to her right middle finger that has been getting worse over the past 5 days. Patient went to an urgent care today and the going to prescribe antibiotics but they noted some red streaking going up her forearm. Patient denies any discharge or drainage. 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 Patient denies any fevers or chills. Patient states she has mild dull pain. Patient states nothing makes it worse and nothing makes it better. Patient denies any paresthesias or weakness. Patient denies any specific trauma or injury. [facility] Medical History Abnormal mammogram of right breast Abnormal mammogram of right breast Afib Alcohol use Anemia Anemia Anxiety Anxiety and depression Arthritis Atrial fibrillation Back pain Breast lump Burn injury of skin of finger Cardiology follow-up encounter Chronic cough COVID-19 vaccine series completed CPAP (continuous positive airway pressure) dependence CVA (cerebral vascular accident) Depression Depression with anxiety Diabetes Dietary restriction DKA (diabetic ketoacidoses) Essential hypertension Flu vaccine need Former smoker Health care maintenance High cholesterol History of echocardiogram History of edema History of stress test History of UTI HTN (hypertension) Hyperlipidemia Hypertension Irregular heartbeat Kidney disease Non-rheumatic mitral valve stenosis Nonrheumatic aortic (valve) stenosis Osteoarthritis Osteoporosis Overactive bladder Pancreatitis Paroxysmal atrial fibrillation Post-menopausal Preoperative evaluation to rule out surgical contraindication Sleep apnea Urinary incontinence, overflow Venous insufficiency Vision problems Walker as ambulation aid Weakness Home Medications ferrous sulfate 325 mg (65 mg iron) tablet 325 mg PO DAILY Supplement 01/27/21 [History Last Taken Unknown] calcium 600 mg capsule 600 mg PO BID Supplement 02/25/21 [History Last Taken Unknown] multivitamin 1 cap PO DAILY Supplement 02/25/21 [History Last Taken Unknown] ascorbic acid (vitamin C) 500 mg tablet (Vitamin C) 500 mg PO DAILY 08/21/21 [History Last Taken Unknown] acetaminophen 325 mg capsule 650 mg PO Q4H PRN 12/02/21 [History Last Taken Unknown] handicap placard See Rx Instructions .Route .COMPLEX #1 unit 12/10/21 [Rx Last Taken Unknown] cholecalciferol (vitamin D3) 50 mcg (2,000 unit) capsule 50 mcg PO DAILY 03/03/22 [History Last Taken Unknown] incontinence pad, liner, disp #144 ea 03/03/22 [Rx Last Taken Unknown] melatonin 3 mg tablet 3 mg PO QHS PRN 03/03/22 [History Last Taken Unknown] denosumab 60 mg/mL subcutaneous syringe (Prolia) 60 mg subcut [id number] #1 mL 03/11/22 [Rx Last Taken Unknown] apixaban 5 mg tablet 5 mg PO BID blood thinner #180 tabs 06/10/22 [Rx Last Taken Unknown] sitagliptin phosphate 100 mg tablet (Januvia) 100 mg PO DAILY 90 days #90 tabs 06/10/22 [Rx Last Taken Unknown] furosemide 40 mg tablet 40 mg PO DAILY Fluid retention #90 tabs 06/24/22 [Rx Last Taken Unknown] glimepiride 4 mg tablet 4 mg PO BID dm 3 months #180 tabs 06/24/22 [Rx Last Taken Unknown] losartan 50 mg tablet 50 mg PO BID bp #180 tabs 06/24/22 [Rx Last Taken Unknown] oxybutynin chloride 15 mg tablet,extended release 24 hr 15 mg PO BID bladder #180 tabs 06/24/22 [Rx Last Taken Unknown] sertraline 100 mg tablet (Zoloft) 100 mg PO DAILY anxiety #90 tabs 06/24/22 [Rx Last Taken Unknown] metoprolol tartrate 50 mg tablet 50 mg PO BID heart #180 tabs 06/28/22 [Rx Last Taken Unknown] amlodipine 10 mg tablet See Rx Instructions .Route .COMPLEX #90 tabs 07/01/22 [Rx Last Taken Unknown] warfarin 3 mg tablet 3 mg PO DAILY #30 tabs 07/01/22 [Rx Last Taken Unknown] cephalexin 500 mg capsule 500 mg PO Q6 #40 CAPSULES 07/06/22 [Rx Last Taken Unknown] metformin 1,000 mg tablet 1,000 mg PO BID DM #180 tabs 07/06/22 [Rx Last Taken Unknown] simvastatin 20 mg tablet 20 mg PO QHS cholesterol #90 tabs 07/06/22 [Rx Last Taken Unknown] Allergy/AdvReac Type Severity Reaction Status Date / Time fosinopril [From Monopril] Allergy Unknown unknown Verified 07/06/22 13:48 pioglitazone AdvReac Other Verified 07/06/22 13:48 Family History Father Diabetes Hypertension High cholesterol Heart disease Melanoma Surgical History History of back surgery History of carpal tunnel release History of hand surgery History of hysterectomy History of left elbow replacement History of surgical amputation of finger of right hand Hx of colonoscopy S/P hysterectomy S/P ORIF (open reduction internal fixation) fracture Social History household members: none Smoking Status: Former smoker how long ago did patient quit smokin years ago alcohol intake: current alcohol intake frequency: holidays/special occasions only substance use type: does not use what type of physical activity do you participate in: other details: aquasize ROS ROS ED Constitutional Constitutional ED: Denies chills or fever(s) Eyes Eyes: Denies blurry vision or change in vision ENT ENT ED: Denies rhinorrhea or sore throat Cardiovascular Cardiovascular: Denies chest pain or palpitations Respiratory/Chest Respiratory/Chest: Denies cough or dyspnea Gastrointestinal Gastrointestinal: Denies nausea or vomiting Genitourinary Genitourinary ED: Reports urinary frequency; Denies dysuria or hematuria Musculoskeletal Musculoskeletal: Denies back pain or neck pain Integumentary Reports rash; Denies abscess Neurologic Neurologic: Denies headache(s) or weakness Allergic/Immunologic Allergic/Immunologic ED: Denies mouth swelling or urticaria EXAM Physical Exam Const Vital Signs: 07/06/22 13:46 07/06/22 14:13 07/06/22 16:00 Temperature 97.3 F L 97.3 F L Temperature Source Temporal Temporal Pulse Rate 67 67 64 Respiratory Rate 16 16 15 Blood Pressure 159/73 H 159/73 H 148/66 H Blood Pressure Mean 101 101 93 Pulse Ox 98 98 95 Oxygen Delivery Method Room Air Room Air Room Air Positive well nourished and well developed General Appearance ED: well developed and NAD HEENT Reports moist mucous membranes Neck supple and no JVD Extremity Extremity Narrative: There is some edema and erythema over the right middle finger. There is some decrease sensation along the wound of the right middle finger. (Patient states this is chronic). The distal phalanx has been previously removed. There is good sensation over the proximal phalanx of the right middle finger. There is good range of motion of the PIP and MP joints of the right middle finger. There is no active bleeding noted. There is no obvious deformity noted. Radial pulses are equal bilaterally. There is full range of motion of the right wrist and right elbow and right shoulder. Neuro oriented x3, CN's II-XII intact bilaterally and no sensory deficits noted Sensorium / Orientation: alert Motor Exam: strength 5/5 throughout Psych mental status grossly normal Skin Skin Narrative: There is some erythema and warmth over the proximal middle phalanges of the right middle finger. There is some erythematous streaking along the dorsal aspect of the hand and forearm. There is no tenderness along the erythematous streak. There is good range of motion of the right wrist and right elbow. MDM MDM MDM Narrative Medical decision making narrative: Differential diagnosis includes lymphangitis, cellulitis, and osteomyelitis. CBC will be obtained to assess for leukocytosis and anemia. Basic metabolic pro file will be obtained to assess for electrolyte abnormality and renal function. Blood cultures will be obtained to assess for sepsis. X-rays of the right hand will be obtained to assess for osteomyelitis. Wound culture will be obtained to assess for wound infection. Lactic acid will be obtained to assess for sepsis. Lab Data Lab results narrative: CBC was reviewed. There is a mild leukocytosis of 11.9. The remainder was within normal limits. Basic metabolic profile was reviewed. BUN was 38 and creatinine was 1.3. Prior outpatient results were reviewed and were similar. Lactate was reviewed and was slightly elevated 2.3. Labs: Laboratory Results - last 24 hr 07/06/22 07/06/22 07/06/22 15:00 15:23 15:23 WBC 11.9 H RBC 4.32 Hgb 11.7 L Hct 37.5 MCV 86.8 MCH 27.1 MCHC 31.2 L RDW Std Deviation 48.4 H RDW Coeff of Zee 15.1 H Plt Count 281 MPV 10.1 Immature Gran % (Auto) 0.700 Neut % (Auto) 88.1 H Lymph % (Auto) 6.3 L [place] % (Auto) 4.3 Eos % (Auto) 0.3 Baso % (Auto) 0.3 Absolute Neuts (auto) 10.4 H Absolute Lymphs (auto) 0.75 L Nucleated RBC % 0 Sodium 135 L Potassium 4.8 Chloride 102 Carbon Dioxide 25.0 Anion Gap 8 BUN 38 H Creatinine 1.30 H Est GFR (MDRD) Af Amer 52 L Est GFR (MDRD) Non-Af 43 L BUN/Creatinine Ratio 29.2 H Glucose 168 H Lactic Acid 2.3 H* Calcium 9.7 Radiography Diagnostic Testing: Clinical Impression(s) from Imaging Studies Hand X-Ray 07/06/22 15:37 IMPRESSION: 1. Soft tissue swelling about the distal aspect of the partially amputated third digit. There is no underlying bony destructive changes. 2. Osteopenia and degenerative changes of the right hand. Electronically Signed: Sridhar Marinelli DO at 16:54 EST Reading Location ID and State: [facility] / [place] Tel [phone], Service support , X-rays of the right hand were obtained. There are 3 views. On my independent interpretation, there is some soft tissue swelling. There are no bony destructive changes. There is no evidence of osteomyelitis. Radiologist also interpreted the x-rays and agrees. Treatment and Re-Evaluation Narrative: Patient was given a dose of Unasyn here. Patient is feeling better on reevaluation. Patient wants to go home. Because of the slightly elevated lactic acid, patient was given IV fluids. On reevaluation, the erythema on the dorsal aspect of her forearm improved. Patient was given a prescription for Keflex. Patient was instructed to keep the wound clean and dry. Patient was instructed to follow-up with her primary care physician in 3 to 5 days. Patient was instructed return if worse in any way. Patient understands and is agreeable with the plan. All questions were answered. Discharge Plan Triage Chief Complaint: Cellulitis ED Provider: Wale Barrera Dx/Rx/DC Orders Clinical Impression: Cellulitis of right middle finger, Type II diabetes mellitus Instructions: ED Cellulitis Prescriptions: New cephalexin [cephalexin] 500 mg capsule 500 mg PO Q6 Qty: 40 0RF No Action acetaminophen 325 mg capsule 650 mg PO Q4H PRN cholecalciferol (vitamin D3) 50 mcg (2,000 unit) capsule 50 mcg PO DAILY (DME) incontinence pad, liner, disp Pad See Rx Instructions .Route Qty: 144 2RF Rx Instructions: As directed ferrous sulfate 325 mg (65 mg iron) tablet 325 mg PO DAILY calcium 600 mg Capsule 600 mg PO BID multivitamin Capsule 1 cap PO DAILY ascorbic acid (vitamin C) [Vitamin C] 500 mg Tablet 500 mg PO DAILY melatonin 3 mg tablet 3 mg PO QHS PRN handicap placard See Rx Instructions .ROUTE .COMPLEX Qty: 1 0RF Rx Instructions: Duration 5 years for reduced mobility Prolia 60 mg/mL syringe 60 mg subcut [id number] Qty: 1 1RF apixaban 5 mg tablet 5 mg PO BID Qty: 180 3RF Hold Instructions: Cost Januvia 100 mg tablet 100 mg PO DAILY 90 Days Qty: 90 1RF Hold Instructions: Cost furosemide 40 mg tablet 40 mg PO DAILY Qty: 90 0RF glimepiride 4 mg tablet 4 mg PO BID 90 Days Qty: 180 3RF losartan 50 mg tablet 50 mg PO BID Qty: 180 3RF oxybutynin chloride 15 mg tablet extended release 24hr 15 mg PO BID Qty: 180 1RF sertraline [Zoloft] 100 mg tablet 100 mg PO DAILY Qty: 90 0RF metoprolol tartrate 50 mg tablet 50 mg PO BID Qty: 180 1RF amlodipine 10 mg tablet See Rx Instructions .ROUTE .COMPLEX Qty: 90 3RF Dose Instruction: TAKE 1 TABLET BY MOUTH DAILY FOR BLOOD PRESSURE Rx Instructions: TAKE 1 TABLET BY MOUTH DAILY FOR BLOOD PRESSURE warfarin 3 mg tablet 3 mg PO DAILY Qty: 30 2RF simvastatin 20 mg tablet 20 mg PO QHS Qty: 90 3RF metformin 1,000 mg tablet 1,000 mg PO BID Qty: 180 3RF Primary Care Provider: Sulma Reagan Referrals: Sulma Reagan MD [Primary Care Provider] -
[2022-07-06 15:37] LABS: Absolute Lymphocyte Count 0.75 X10^3/uL (0.83-4.51); Absolute Neutrophil Count 10.4 X10^3/uL (2.0-7.7); Basophil# 0.04 X10^3/uL; Basophil% 0.3 % (0-1); Eosinophil# 0.03 X10^3/uL; Eosinophils% 0.3 % (0-5); Hematocrit 37.5 % (37-47); Hemoglobin 11.7 g/dL (12.0-15.0); Lymphocyte # 0.75 X10^3/ul (0.83-4.51); Lymphocyte % 6.3 % (19-41); Mean Corp Hgb Conc 31.2 g/dL (32-36); Mean Corpuscular Hgb 27.1 pg (27.0-32.0); Mean Corpuscular Volume 86.8 fL (81-99); Mean Platelet Vol. 10.1 fl (6.2-12.0); Monocyte# 0.51 X10^3/uL; Monocyte% 4.3 % (0-10); NRBC Flagged by Analyzer 0 % (0-5); Neutrophil # 10.44 X10^3/uL (2.7-7.7); Neutrophil % 88.1 % (47-70); Platelet Count 281 K/mm3 (150-450); RBC Distribution Width CV 15.1 % (11.6-14.6); RBC Distribution Width SD 48.4 fl (35.1-43.9); Red Blood Count 4.32 M/mm3 (4.2-5.4); White Blood Count 11.9 K/mm3 (4.4-11.0)
--- NOTE | 2022-07-06 15:37 | RAD_ITS ---
STUDY: X-RAY - RIGHT HAND REASON FOR EXAM: Female, 72 years old. Injury. Pain. Sent by urgent care for cellulitis in the third digit. 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 TECHNIQUE: 3 view(s) of the hand. COMPARISON: None. FINDINGS: Generalized osteopenia. There is joint space narrowing of the radiocarpal articulation consistent with degenerative arthrosis. Normal distal radioulnar joint. Normal visualized carpal bones. There is degenerative joint disease of the scaphotrapezium / trapezoid articulation. The remainder of the carpal articulations are normal. There is degenerative arthrosis of the carpometacarpal (CMC) articulation of the thumb. Normal second through fifth carpometacarpal joints. Normal metacarpi. Normal metacarpophalangeal joint of the thumb. There is degenerative arthrosis of the interphalangeal joint of the thumb with articular joint space narrowing. Normal proximal and distal phalanges of the thumb. Normal metacarpophalangeal joints of the second through fifth fingers. Normal proximal and distal interphalangeal joints of the second through fifth fingers. There is amputation of the distal portion of the third digit. At the level of the middle phalanx. The bone appears intact and without erosive changes. Otherwise normal phalanges of the second through fifth fingers. There is marked soft tissue swelling about the distal third digit with slight irregularity about the tip of the finger. The soft tissues are otherwise unremarkable. RAD/Hand Min 3 Views IMPRESSION: 1. Soft tissue swelling about the distal aspect of the partially amputated third digit. There is no underlying bony destructive changes. 2. Osteopenia and degenerative changes of the right hand. Electronically Signed: Sridhar Marinelli DO at 16:54 EST Reading Location ID and State: [address] [place] [address] Tel [phone], Service support ,
[2022-07-06 16:00] VITALS: BP 148/66; PULSE 64; RESP 15; O2SAT 95
[2022-07-06 16:04] LABS: Anion Gap 8 (5-15); BUN 38 mg/dL (7-18); BUN/Creat Ratio 29.2 RATIO (10-20); Calcium,Total 9.7 mg/dL (8.5-10.1); Chloride 102 mmol/L (98-107); EST Glomerular Filtration Rate 43 mL/min (>60); Est Glom Filt Rate - Afr Amer 52 mL/min (>60); Glucose 168 mg/dL (74-106); Potassium 4.8 mmol/L (3.5-5.1); Sodium Level 135 mmol/L (136-145)
[2022-07-06 16:10] VITALS: BMI 37.0
[2022-07-06 16:14] LABS: Lactic Acid 2.3 mmol/L (0.4-1.9)
[2022-07-06] MEDS: 0.9% Normal Saline 1,000 ML 1000 ML IV (17:32)
[2022-07-06 17:46] VITALS: PULSE 81; RESP 18; O2SAT 94
[2022-07-06 19:33] LABS: Reflex Lactate? Y
== END 2022-07-06 18:47 | disposition home or self-care (01) ==
LOC: ED 14:49
PROVIDERS: Emergency Provider Emergency Medicine; PCP Internal Medicine; Visit Provider Emergency Medicine
DX: L03.011 Cellulitis of right finger (principal); I48.91 Unspecified atrial fibrillation; E11.9 Type 2 diabetes mellitus without complications; E78.00 Pure hypercholesterolemia, unspecified; I10 Essential (primary) hypertension; Z79.84 Long term (current) use of oral hypoglycemic drugs; Z79.01 Long term (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; Z79.899 Other long term (current) drug therapy; Z87.891 Personal history of nicotine dependence
CPT/HCPCS: 96365; 99282; 36415; 73130; 80048; 83605; 85025; 87040; 87070; 87077; 87149; 87186; 87205; J7030; J7050; A4216; J0295

== ENCOUNTER 2022-07-09 14:26 | Inpatient (IN) | payer MEDICARE, SELFPAY ==
[2022-07-09] VITALS (9 sets, daily range): BP systolic 97–157; BP diastolic 60–92; PULSE 122–145; RESP 16–19; TEMP 35.8–36.9; O2SAT 94–97; BMI 35.3; BMI 35.4
--- NOTE | 2022-07-09 15:17 | EX.ED.DYSGE1 ---
HPI History of Present Illness Chief Complaint: Cellulitis Informant: patient Narrative Narrative: Patient presents secondary to positive blood cultures. Patient was seen in the emergency room on the for a acute on chronic wound to the distal aspect of her right third finger. She had a prior amputation at the DIP joint. Over the last 10 days or so she had increasing redness and drainage. She initially presented to urgent care but because of slight red streak up her arm she was sent to the emergency room. Work-up in the ER was reassuring and she was discharged on Keflex. Yesterday her initial wound culture came back with evidence of MRSA. She was called in her prescription was switched from Keflex to Bactrim. This morning her blood culture also returned positive for Staph aureus. She was called and asked to come back to the emergency room. Patient states overall she feels that she is improving. She has not had fever or chills. She states any red streaking that she had up her arm has resolved. [facility] Medical History Abnormal mammogram of right breast Abnormal mammogram of right breast Afib Alcohol use Anemia Anemia Anxiety Anxiety and depression Arthritis Atrial fibrillation Back pain Breast lump Burn injury of skin of finger Cardiology follow-up encounter Chronic cough COVID-19 vaccine series completed CPAP (continuous positive airway pressure) dependence CVA (cerebral vascular accident) Depression Depression with anxiety Diabetes Dietary restriction DKA (diabetic ketoacidoses) Essential hypertension Flu vaccine need Former smoker Health care maintenance High cholesterol History of echocardiogram History of edema History of stress test History of UTI HTN (hypertension) Hyperlipidemia Hypertension Irregular heartbeat Kidney disease Non-rheumatic mitral valve stenosis Nonrheumatic aortic (valve) stenosis Osteoarthritis Osteoporosis Overactive bladder Pancreatitis Paroxysmal atrial fibrillation Post-menopausal Preoperative evaluation to rule out surgical contraindication Sleep apnea Urinary incontinence, overflow Venous insufficiency Vision problems Walker as ambulation aid Weakness Home Medications ferrous sulfate 325 mg (65 mg iron) tablet 325 mg PO DAILY Supplement 01/27/21 [History Last Taken 07/08/22] ascorbic acid (vitamin C) 500 mg tablet (Vitamin C) 500 mg PO DAILY 08/21/21 [History Last Taken 07/08/22] acetaminophen 325 mg capsule 650 mg PO Q4H PRN Pain 12/02/21 [History Last Taken 07/08/22] cholecalciferol (vitamin D3) 50 mcg (2,000 unit) capsule 50 mcg PO DAILY 03/03/22 [History Last Taken 07/08/22] denosumab 60 mg/mL subcutaneous syringe (Prolia) 60 mg subcut [id number] #1 mL 03/11/22 [Rx Last Taken Unknown] furosemide 40 mg tablet 40 mg PO DAILY Fluid retention #90 tabs 06/24/22 [Rx Last Taken 07/09/22] glimepiride 4 mg tablet 4 mg PO BID dm 3 months #180 tabs 06/24/22 [Rx Last Taken 07/09/22] losartan 50 mg tablet 50 mg PO BID bp #180 tabs 06/24/22 [Rx Last Taken 07/09/22] oxybutynin chloride 15 mg tablet,extended release 24 hr 15 mg PO BID bladder #180 tabs 06/24/22 [Rx Last Taken 07/09/22] sertraline 100 mg tablet (Zoloft) 100 mg PO DAILY anxiety #90 tabs 06/24/22 [Rx Last Taken 07/08/22] metoprolol tartrate 50 mg tablet 50 mg PO BID heart #180 tabs 06/28/22 [Rx Last Taken 07/09/22] warfarin 3 mg tablet 3 mg PO DAILY #30 tabs 07/01/22 [Rx Last Taken 07/09/22] metformin 1,000 mg tablet 1,000 mg PO BID DM #180 tabs 07/06/22 [Rx Last Taken 07/09/22] simvastatin 20 mg tablet 20 mg PO QHS cholesterol #90 tabs 07/06/22 [Rx Last Taken 07/08/22] amlodipine 10 mg tablet 10 mg PO DAILY BP 07/09/22 [History Last Taken 07/09/22] multivitamin 1 tab PO DAILY SUPPLEMENT 07/09/22 [History Last Taken 07/08/22] sulfamethoxazole 800 mg-trimethoprim 160 mg tablet 1 tab PO BID ANTIBIOTIC 07/09/22 [History Last Taken 07/09/22] Allergy/AdvReac Type Severity Reaction Status Date / Time fosinopril [From Monopril] Allergy Unknown unknown Verified 07/06/22 13:48 pioglitazone AdvReac Other Verified 07/06/22 13:48 Family History Father Diabetes Hypertension High cholesterol Heart disease Melanoma Surgical History History of back surgery History of carpal tunnel release History of hand surgery History of hysterectomy History of left elbow replacement History of surgical amputation of finger of right hand Hx of colonoscopy S/P hysterectomy S/P ORIF (open reduction internal fixation) fracture Social History household members: none Smoking Status: Former smoker how long ago did patient quit smokin years ago alcohol intake: current alcohol intake frequency: holidays/special occasions only substance use type: does not use what type of physical activity do you participate in: other details: aquasize ROS ROS ED Constitutional Constitutional ED: Denies chills or fever(s) Eyes Eyes: Denies change in vision or discharge from eye(s) ENT ENT ED: Denies discharge from eye(s), rhinorrhea or sore throat Cardiovascular Cardiovascular: Denies chest pain or palpitations Respiratory/Chest Respiratory/Chest: Denies cough or dyspnea Gastrointestinal Gastrointestinal: Denies abdominal pain, diarrhea, nausea or vomiting Genitourinary Genitourinary ED: Denies difficulty urinating or dysuria Musculoskeletal Musculoskeletal: Denies back pain or extremity pain Integumentary Reports other Details: Right third finger infection Neurologic Neurologic: Denies headache(s) or weakness Allergic/Immunologic Allergic/Immunologic ED: Denies lip swelling or urticaria EXAM Physical Exam Const Vital Signs: 07/09/22 14:28 07/09/22 15:47 07/09/22 16:00 Temperature 96.5 F L 98.2 F 98.5 F Temperature Source Temporal Oral Oral Pulse Rate 124 H 139 H 132 H Respiratory Rate 18 18 18 Blood Pressure 113/92 H 135/80 H 119/83 H Blood Pressure Mean 99 98 95 Pulse Ox 96 94 95 Oxygen Delivery Method Room Air Room Air Room Air Positive well nourished and well developed General Appearance ED: well developed HEENT Reports normocephalic and head/scalp atraumatic Eyes PERRL and EOMs intact bilaterally Neck supple Chest Wall inspection of chest normal and palpation of chest normal Resp normal respiratory effort and clear to auscultation bilaterally Cardio regular rate and regular rhythm GI normal to inspection, nondistended, normoactive bowel sounds Palpation: soft Extremity Extremity Narrative: Evidence of prior right third finger amputation at the DIP joint. Distal aspect of the wound is open with slight drainage. No significant finger edema or erythema. No lymphangitic streaking noted at this time. Neuro oriented x3 and no sensory deficits noted Sensorium / Orientation: alert Motor Exam: strength 5/5 throughout Psych mental status grossly normal MDM MDM MDM Narrative Medical decision making narrative: Repeat blood cultures are drawn. Lab work obtained to evaluate for leukocytosis, electrolyte derangement. Lactic acid ordered. X-ray of the right hand obtained to evaluate for any bony change of infection. Lab Data Attestation: I reviewed the patient's lab results. Labs: Laboratory Results - last 24 hr 07/09/22 07/09/22 07/09/22 15:43 15:43 15:43 WBC 8.8 RBC 4.37 Hgb 12.0 Hct 37.7 MCV 86.3 MCH 27.5 MCHC 31.8 L RDW Std Deviation 48.1 H RDW Coeff of Zee 15.2 H Plt Count 369 MPV 10.0 Immature Gran % (Auto) 0.500 Neut % (Auto) 75.9 H Lymph % (Auto) 16.2 L [place] % (Auto) 4.9 Eos % (Auto) 2.0 Baso % (Auto) 0.5 Absolute Neuts (auto) 6.7 Absolute Lymphs (auto) 1.42 Nucleated RBC % 0 Sodium 135 L Potassium 4.5 Chloride 101 Carbon Dioxide 25.0 Anion Gap 9 BUN 68 H Creatinine 2.33 H Est GFR (MDRD) Af Amer 27 L Est GFR (MDRD) Non-Af 22 L BUN/Creatinine Ratio 29.2 H Glucose 167 H Lactic Acid 2.7 H* Calcium 9.9 Radiography Diagnostic Testing: Clinical Impression(s) from Imaging Studies Hand X-Ray 07/09/22 15:50 IMPRESSION: 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 Diffuse soft tissue swelling of the third digit without evidence for acute fracture or osteomyelitis Electronically Signed: Monty Kaye MD at 16:09 EST , Treatment and Re-Evaluation Narrative: CBC was normal white count at 8.8 with 75% neutrophils. Chemistry studies significant for BUN of 68 and creatinine of 2.33. This is elevated when compared to prior visit from just a few days ago. Her lactic acid is elevated at 2.7. It is noted that the patient is on metformin. Her lactic acidosis may be secondary to her metformin use with acute kidney injury. Right hand x-rays per my interpretation: No evidence of bony change at the site of infection. Radiology interpretation is reviewed and agrees. Patient is ordered IV fluids along with a dose of vancomycin. I will speak with hospitalist regarding admission. Discharge Plan Triage Chief Complaint: Cellulitis ED Provider: Karina Gonzalez Dx/Rx/DC Orders Clinical Impression: Finger infection, Bacteremia, Acute kidney injury Prescriptions: No Action acetaminophen 325 mg capsule 650 mg PO Q4H PRN (Reason: Pain) cholecalciferol (vitamin D3) 50 mcg (2,000 unit) capsule 50 mcg PO DAILY ferrous sulfate 325 mg (65 mg iron) tablet 325 mg PO DAILY ascorbic acid (vitamin C) [Vitamin C] 500 mg Tablet 500 mg PO DAILY multivitamin Tablet 1 tab PO DAILY sulfamethoxazole-trimethoprim 800-160 mg tablet 1 tab PO BID amlodipine 10 mg tablet 10 mg PO DAILY Prolia 60 mg/mL syringe 60 mg subcut [id number] Qty: 1 1RF furosemide 40 mg tablet 40 mg PO DAILY Qty: 90 0RF glimepiride 4 mg tablet 4 mg PO BID 90 Days Qty: 180 3RF losartan 50 mg tablet 50 mg PO BID Qty: 180 3RF oxybutynin chloride 15 mg tablet extended release 24hr 15 mg PO BID Qty: 180 1RF sertraline [Zoloft] 100 mg tablet 100 mg PO DAILY Qty: 90 0RF metoprolol tartrate 50 mg tablet 50 mg PO BID Qty: 180 1RF warfarin 3 mg tablet 3 mg PO DAILY Qty: 30 2RF simvastatin 20 mg tablet 20 mg PO QHS Qty: 90 3RF metformin 1,000 mg tablet 1,000 mg PO BID Qty: 180 3RF Primary Care Provider: Sulma Reagan Referrals: Sulma Reagan MD [Primary Care Provider] - Disposition Disposition: Acute Care Hospital [facility]
--- NOTE | 2022-07-09 15:50 | RAD_ITS ---
STUDY: X-RAY - RIGHT HAND REASON FOR EXAM: Female, 72 years old. infection TECHNIQUE: 3 view(s) of the hand. COMPARISON: 09/03/2022 FINDINGS: Normal radiocarpal articulation. Normal distal radioulnar joint. Normal visualized carpal bones. Normal carpal articulations Arthritic changes of the carpometacarpal articulation of the thumb. Normal second through fifth carpometacarpal joints. Normal metacarpi. Normal metacarpophalangeal joint of the thumb. Normal interphalangeal joint of the thumb. Normal proximal and distal phalanges of the thumb. Normal metacarpophalangeal joints of the second through fifth fingers. Normal proximal and distal interphalangeal joints of the second through fifth fingers. Amputation of the third digit through the distal shaft of the distal phalanx Diffuse soft tissue swelling of the third digit No significant change since prior study RAD/Hand Min 3 Views IMPRESSION: 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 Diffuse soft tissue swelling of the third digit without evidence for acute fracture or osteomyelitis Electronically Signed: Monty Kaye MD at 16:09 EST ,
[2022-07-09 16:05] LABS: Absolute Lymphocyte Count 1.42 X10^3/uL (0.83-4.51); Absolute Neutrophil Count 6.7 X10^3/uL (2.0-7.7); Basophil# 0.04 X10^3/uL; Basophil% 0.5 % (0-1); Eosinophil# 0.18 X10^3/uL; Hematocrit 37.7 % (37-47); Lymphocyte # 1.42 X10^3/ul (0.83-4.51); Lymphocyte % 16.2 % (19-41); Mean Corp Hgb Conc 31.8 g/dL (32-36); Mean Corpuscular Hgb 27.5 pg (27.0-32.0); Mean Corpuscular Volume 86.3 fL (81-99); Monocyte# 0.43 X10^3/uL; Monocyte% 4.9 % (0-10); NRBC Flagged by Analyzer 0 % (0-5); Neutrophil # 6.68 X10^3/uL (2.7-7.7); Neutrophil % 75.9 % (47-70); Platelet Count 369 K/mm3 (150-450); RBC Distribution Width CV 15.2 % (11.6-14.6); RBC Distribution Width SD 48.1 fl (35.1-43.9); Red Blood Count 4.37 M/mm3 (4.2-5.4); White Blood Count 8.8 K/mm3 (4.4-11.0)
[2022-07-09 16:19] LABS: Anion Gap 9 (5-15); BUN 68 mg/dL (7-18); BUN/Creat Ratio 29.2 RATIO (10-20); Calcium,Total 9.9 mg/dL (8.5-10.1); Chloride 101 mmol/L (98-107); Creatinine, Serum 2.33 mg/dL (0.55-1.02); EST Glomerular Filtration Rate 22 mL/min (>60); Est Glom Filt Rate - Afr Amer 27 mL/min (>60); Glucose 167 mg/dL (74-106); Potassium 4.5 mmol/L (3.5-5.1); Sodium Level 135 mmol/L (136-145)
[2022-07-09 16:35] LABS: Lactic Acid 2.7 mmol/L (0.4-1.9)
[2022-07-09] MEDS: 0.9% Normal Saline 1,000 ML 150 ML IV (17:20)
--- NOTE | 2022-07-09 17:35 | HP.PCM.HOS_ITS ---
HPI - General General Date of Admission: 07/09/22 Date of Service: 07/09/22 Chief Complaint: Right third finger infection for about 10 days HPI Narrative JOSELINE RIDDLE, is a 72 F With history of diabetes mellitus type II was seen for redness and drainage from right third finger amputation is stump over a period of 10 days and positive MRSA blood culture. Earlier patient had amputation of right third DIP joint in 2019 after she cut accidentally cut her finger and was infected and delayed in seeking treatment. She was seen in ED on 07/06 and was sent home on Keflex but later wound culture came positive of MRSA therefore prescription was changed from Keflex to Bactrim. In the morning today her blood culture also came positive for Staph aureus therefore she was called in ED for admission. Overall, patient is states she she is feeling improving with no fever or chills, nausea, vomiting or headache.Earlier she had red streaking going up to forearm that has resolved. Patient has sensation over right third finger stump denies numbness and tingling. Complain of mild back pain. In ED, no tachycardia tachypnea or hypoxia. BP in acceptable limit. Patient is started on IV vancomycin and admitted. She also has abnormal kidney function and lactic acidosis discussed in assessment and plan. [facility] Medical History Abnormal mammogram of right breast Abnormal mammogram of right breast Afib Alcohol use Anemia Anemia Anxiety Anxiety and depression Arthritis Atrial fibrillation Back pain Breast lump Burn injury of skin of finger Cardiology follow-up encounter Chronic cough COVID-19 vaccine series completed CPAP (continuous positive airway pressure) dependence CVA (cerebral vascular accident) Depression Depression with anxiety Diabetes Dietary restriction DKA (diabetic ketoacidoses) Essential hypertension Flu vaccine need Former smoker Health care maintenance High cholesterol History of echocardiogram History of edema History of stress test History of UTI HTN (hypertension) Hyperlipidemia Hypertension Irregular heartbeat Kidney disease Non-rheumatic mitral valve stenosis Nonrheumatic aortic (valve) stenosis Osteoarthritis Osteoporosis Overactive bladder Pancreatitis Paroxysmal atrial fibrillation Post-menopausal Preoperative evaluation to rule out surgical contraindication Sleep apnea Urinary incontinence, overflow Venous insufficiency Vision problems Walker as ambulation aid Weakness Home Medications ferrous sulfate 325 mg (65 mg iron) tablet 325 mg PO DAILY Supplement 01/27/21 [History Last Taken 07/08/22] ascorbic acid (vitamin C) 500 mg tablet (Vitamin C) 500 mg PO DAILY 08/21/21 [History Last Taken 07/08/22] acetaminophen 325 mg capsule 650 mg PO Q4H PRN Pain 12/02/21 [History Last Taken 07/08/22] cholecalciferol (vitamin D3) 50 mcg (2,000 unit) capsule 50 mcg PO DAILY 03/03/22 [History Last Taken 07/08/22] denosumab 60 mg/mL subcutaneous syringe (Prolia) 60 mg subcut [id number] #1 mL 03/11/22 [Rx Last Taken Unknown] furosemide 40 mg tablet 40 mg PO DAILY Fluid retention #90 tabs 06/24/22 [Rx Last Taken 07/09/22] glimepiride 4 mg tablet 4 mg PO BID dm 3 months #180 tabs 06/24/22 [Rx Last Taken 07/09/22] losartan 50 mg tablet 50 mg PO BID bp #180 tabs 06/24/22 [Rx Last Taken 07/09/22] oxybutynin chloride 15 mg tablet,extended release 24 hr 15 mg PO BID bladder #180 tabs 06/24/22 [Rx Last Taken 07/09/22] sertraline 100 mg tablet (Zoloft) 100 mg PO DAILY anxiety #90 tabs 06/24/22 [Rx Last Taken 07/08/22] metoprolol tartrate 50 mg tablet 50 mg PO BID heart #180 tabs 06/28/22 [Rx Last Taken 07/09/22] warfarin 3 mg tablet 3 mg PO DAILY #30 tabs 07/01/22 [Rx Last Taken 07/09/22] metformin 1,000 mg tablet 1,000 mg PO BID DM #180 tabs 07/06/22 [Rx Last Taken 07/09/22] simvastatin 20 mg tablet 20 mg PO QHS cholesterol #90 tabs 07/06/22 [Rx Last Taken 07/08/22] amlodipine 10 mg tablet 10 mg PO DAILY BP 07/09/22 [History Last Taken 07/09/22] multivitamin 1 tab PO DAILY SUPPLEMENT 07/09/22 [History Last Taken 07/08/22] sulfamethoxazole 800 mg-trimethoprim 160 mg tablet 1 tab PO BID ANTIBIOTIC 07/09/22 [History Last Taken 07/09/22] Allergy/AdvReac Type Severity Reaction Status Date / Time fosinopril [From Monopril] Allergy Unknown unknown Verified 07/06/22 13:48 pioglitazone AdvReac Other Verified 07/06/22 13:48 Family History Father Diabetes Hypertension High cholesterol Heart disease Melanoma Surgical History History of back surgery History of carpal tunnel release History of hand surgery History of hysterectomy History of left elbow replacement History of surgical amputation of finger of right hand Hx of colonoscopy S/P hysterectomy S/P ORIF (open reduction internal fixation) fracture Social History household members: none Smoking Status: Former smoker how long ago did patient quit smokin years ago alcohol intake: current alcohol intake frequency: holidays/special occasions only substance use type: does not use what type of physical activity do you participate in: other details: aquasize ROS ROS Narrative Constitutional: Mild fatigue and weakness. No fever HEENT: Reports systems reviewed and no addt'l complaints, except as documented Respiratory/Chest: Denies chest pain, shortness of breath at rest or with exertion Gastrointestinal: Denies coffee ground emesis, hematemesis or vomiting Genitourinary: Denies burning urination or new urinary tract symptoms Musculoskeletal: Right third finger pain. Denies diabetic foot ulcer. Neurologic: Denies seizure-like activity. 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 skin: Wound over right third finger amputation the stump as described in HPI Endocrinology: Reports systems reviewed and no addt'l complaints, except as documented Hematologic/Lymphatic: Reports systems reviewed and no addt'l complaints, except as documented Rest 14 ROS are negative except as mentioned in HPI Vital Signs Vital Signs Vital Signs: 07/09/22 14:28 07/09/22 15:47 07/09/22 16:00 Temperature 96.5 F L 98.2 F 98.5 F Temperature Source Temporal Oral Oral Pulse Rate 124 H 139 H 132 H Respiratory Rate 18 18 18 Blood Pressure 113/92 H 135/80 H 119/83 H Blood Pressure Mean 99 98 95 Pulse Ox 96 94 95 Oxygen Delivery Method Room Air Room Air Room Air 07/09/22 17:21 07/09/22 17:22 Temperature 98.2 F 98.2 F Temperature Source Oral Oral Pulse Rate 145 H 145 H Respiratory Rate 16 16 Blood Pressure 157/60 H 157/60 H Blood Pressure Mean 92 92 Pulse Ox 95 96 Oxygen Delivery Method Weight Weight: 186 lb 15.232 oz Body Mass Index (BMI) 35.3 Physical Exam Narrative General: Alert, Oriented x3, Cooperative HEENT: Atraumatic, PERRLA, EOMI, Normocephalic Oral: Oral mucosa moist. No Gingival or Mucosal Lesions/ Ulcerations Neck: Supple, No JVD, Negative Carotid Bruits Lungs: Air entry diminished in bilateral lung bases. No crepitation/rhonchi Cardiovascular: Regular rate, Regular Rhythm, Normal S1, Normal S2, No murmurs Abdomen: Bowel Sounds Present, Soft, Non Tender, Non-Distended : No renal angle tenderness. No suprapubic tenderness. Extremities: No edema, Capillary Refill Less than 3 Seconds Skin: No rashes, No breakdown Musculoskeletal: Mild tenderness of right third finger, sensation intact in right third finger stump.Degenerative arthritis of bilateral knees. Ambulates with a cane. Neurological: Left-sided facial droop, chronic. Chronic slurred speech, residual stroke symptoms. Muscle strength 5/5 at major joints of upper and lower extremities. Psych/Mental Status: Flat affect Results Lab / Micro Data Result Diagrams: 07/09/22 15:43 07/09/22 15:43 Labs: Laboratory Results - last 24 hr 07/09/22 15:43: WBC 8.8, RBC 4.37, Hgb 12.0, Hct 37.7, MCV 86.3, MCH 27.5, MCHC 31.8 L, RDW Std Deviation 48.1 H, RDW Coeff of Zee 15.2 H, Plt Count 369, MPV 10.0, Immature Gran % (Auto) 0.500, Neut % (Auto) 75.9 H, Lymph % (Auto) 16.2 L, [place] % (Auto) 4.9, Eos % (Auto) 2.0, Baso % (Auto) 0.5, Absolute Neuts (auto) 6.7, Absolute Lymphs (auto) 1.42, Nucleated RBC % 0 07/09/22 15:43: Sodium 135 L, Potassium 4.5, Chloride 101, Carbon Dioxide 25.0, Anion Gap 9, BUN 68 H, Creatinine 2.33 H, Est GFR (MDRD) Af Amer 27 L, Est GFR (MDRD) Non-Af 22 L, BUN/Creatinine Ratio 29.2 H, Glucose 167 H, Calcium 9.9 07/09/22 15:43: Lactic Acid 2.7 H* Radiology Impression Hand X-Ray 07/09/22 15:50 IMPRESSION: 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 Diffuse soft tissue swelling of the third digit without evidence for acute fracture or osteomyelitis Electronically Signed: Monty Kaye MD at 16:09 EST Reading Location ID and State: [facility] / [place] , Service support , Assessment & Plan Assessment/Plan (1) Cellulitis of right middle finger: (2) Acute kidney injury: PLAN: Plan 1. Cellulitis and possible localized abscess of right third finger amputation stump ulcer due to MRSA complicated with MRSA bacteremia: Patient is admitted on [facility] floor. Patient had x-ray of the hand in ED which does not show acute osteomyelitis or fracture but diffuse soft tissue swelling. MRI of right hand ordered as there is draining pus from deep inside of right third finger stump. Wound culture from 07/06 shows MRSA. Blood culture x2 from 07/06 also shows MRSA. Patient is started on IV vancomycin. Repeat blood culture is ordered in ED. Wound care nurse consulted. Dr. Wolff called and voice message left for the consult 2. Acute kidney injury on CKD stage IIIa: Patient baseline creatinine runs around 1.3, on 07/06/2022. BUN/creatinine high 68/2.33. Patient also had mild hyponatremia but seems isovolemic. IV fluid normal saline 100 mm/h. Serum magnesium and phosphorus level in normal range. Monitor kidney function, electrolytes and intake and output. Hold nephrotoxic medications including furosemide, lisinopril, metformin and oral hypoglycemic agents. 3. Lactic acidosis: I do not think patient is septic but lactic acidosis may be due to CRISTIAN and patient also on high dose of metformin. Patient has sinus tachycardia 4. Paroxysmal A-fib with sinus tachycardia, chronic HFpEF and valvular heart disease: Twelve-lead EKG ordered. Patient blood pressure is 157/60 therefore tachycardia does not seem to be from sepsis. Patient has history of paroxysmal A-fib on warfarin. Initially patient was on Eliquis could not afford and therefore on warfarin. INR 5.0 therefore hold warfarin. Monitor INR daily. Patient follows in cardiology clinic with Dr. Wesley and Mando lópez. Last echo in September 2018 reported as EF 75%, LA moderately enlarged, mild mitral stenosis, mild TR, RVSP 48 mg consistent with mild pulmonary hypertension. Mild aortic stenosis. Overall echo consistent with mild HFpEF. 5. History of right temporal lobe infarct: Patient was admitted during that time. Continue high intensity statin. Patient was admitted in August 2021 for lower GI bleed therefore only on warfarin. 6. Hypertension and dyslipidemia: Continue amlodipine. Hold lisinopril. Simvastatin changed to atorvastatin 7. Chronic urinary retention on oxybutynin continued VTE prophylaxis: Coagulopathy INR 5.0. Hold warfarin. Living will/advanced directive/end of life care: Patient does have living will or advanced directive. She does not have designated power of ip attorney for health but her sister is next to kin. Her has and she does not have kids. After discussion of benefits/risks procedures involved with full code, DNR CC arrest and DNR CC, the patient opted for full code in the beginning but does not want to prolong her life on artificial life support/ventilator if i t becomes irreversible.. Patient does want artificial life support including intubation, tube feed, ventilator and/chest compression, central venous catheter, vasopressor and DC shock if needed Total time spent in [id number] encounter in discussion of advanced directive 17 minutes. Laboratory Results 07/09/22 15:43: WBC 8.8, RBC 4.37, Hgb 12.0, Hct 37.7, MCV 86.3, MCH 27.5, MCHC 31.8 L, RDW Std Deviation 48.1 H, RDW Coeff of Zee 15.2 H, Plt Count 369, MPV 10.0, Immature Gran % (Auto) 0.500, Neut % (Auto) 75.9 H, Lymph % (Auto) 16.2 L, [place] % (Auto) 4.9, Eos % (Auto) 2.0, Baso % (Auto) 0.5, Absolute Neuts (auto) 6.7, Absolute Lymphs (auto) 1.42, Nucleated RBC % 0 07/09/22 15:43: Sodium 135 L, Potassium 4.5, Chloride 101, Carbon Dioxide 25.0, Anion Gap 9, BUN 68 H, Creatinine 2.33 H, Est GFR (MDRD) Af Amer 27 L, Est GFR (MDRD) Non-Af 22 L, BUN/Creatinine Ratio 29.2 H, Glucose 167 H, Calcium 9.9 07/09/22 15:43: Lactic Acid 2.7 H* 07/09/22 15:43: PT 46.0 H, INR 5.0 H* 07/09/22 15:43: Phosphorus Pending, Magnesium Pending Clinical Impression(s) from Imaging Studies Hand X-Ray 07/09/22 15:50 IMPRESSION: 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 Diffuse soft tissue swelling of the third digit without evidence for acute fracture or osteomyelitis Charges/Coding Visit Charges Inpatient E&M: 83292 Init Hosp L3 Procedures Hospitalists Procedures: 71315 Advncd Care Plan 30 Min
--- NOTE | 2022-07-09 17:43 | EKG12_ITS ---
Test Reason : HEART RATE Blood Pressure : / mmHG Vent. Rate : 134 BPM Atrial Rate : 000 BPM P-R Int : 000 ms QRS Dur : 072 ms QT Int : 310 ms P-R-T Axes : 000 058 -49 degrees QTc Int : 462 ms Atrial fibrillation with rapid ventricular response Nonspecific ST and T wave abnormality Abnormal ECG Confirmed by NEVA CALLOWAY, JULIUS ([id number]), editor magazine AMALIA MEJIA ([id number]) on 07/14/2022 1:27:43 PM Referred By: NAYLA Confirmed By:JULIUS HOOKS MD
--- NOTE | 2022-07-09 18:10 | PCM.RX.CS ---
Consult Pharmacy has been consulted to manage selected antiobiotic: Vancomycin Type of Consult: New start Suspected Infection: Skin/Soft tissue, Bacteremia Labs: Sodium 135 mmol/L (136-145) L 07/09/22 15:43 Potassium 4.5 mmol/L (3.5-5.1) 07/09/22 15:43 Chloride 101 mmol/L (98-107) 07/09/22 15:43 Carbon Dioxide 25.0 mmol/L (21.0-32.0) 07/09/22 15:43 Anion Gap 9 (5-15) 07/09/22 15:43 BUN 68 mg/dL (7-18) H 07/09/22 15:43 Creatinine 2.33 mg/dL (0.55-1.02) H 07/09/22 15:43 Est GFR (MDRD) Af Amer 27 mL/min (>60) L 07/09/22 15:43 Est GFR (MDRD) Non-Af 22 mL/min (>60) L 07/09/22 15:43 BUN/Creatinine Ratio 29.2 RATIO (10-20) H 07/09/22 15:43 Glucose 167 mg/dL (74-106) H 07/09/22 15:43 Goal Trough: 15-20 mcg/mL Pharmacy Plan for Drug Dosing: NEW START IV VANCOMYCIN Consulting Physician: Dr. Guzman Indication: (+) MRSA Bacteremia, wound infection. Patient has positive MRSA cultures from previous ED visit a few days ago. Goal Trough: 15-20 SrCr: 2.33 CrCl: 22 mL/min Comments: Initial ED dose of 1250mg IV ordered and administered 07/09/22 @1720 Vancomycin Dose: 750mg IV Q24h to start 07/10/22 @1700 Pending Level: 07/11/22 @1630 prior to 3rd total dose per protocol Pharmacy Service will continue to monitor and adjust dosing as required.
[2022-07-09] MEDS: Metoprolol Tartrate 5 MG/5 ML Vial IV (18:11)
[2022-07-09 18:18] LABS: Magnesium 2.3 mg/dL (1.6-2.6); Phosphorus 4.3 mg/dL (2.5-4.9)
[2022-07-09 19:49] LABS: Reflex Lactate? Y
[2022-07-09] MEDS: Atorvastatin Calcium 40 MG Tablet PO (20:26)
[2022-07-09] MEDS: Metoprolol Tartrate 50 MG Tablet PO (20:26)
[2022-07-09] MEDS: 0.9% Normal Saline 1,000 ML 100 ML IV (20:27)
[2022-07-09 21:48] LABS: Lactic Acid 0.9 mmol/L (0.4-1.9)
[2022-07-09] MEDS: dilTIAZem 25 MG/5 ML Vial 10 MG IV BOLUS (22:46)
[2022-07-09 23:01] LABS: Bedside Glucose 122 mg/dL (74-106)
[2022-07-09 23:01] LABS: Bedside Glucose 59 mg/dL (74-106)
--- NOTE | 2022-07-09 23:30 | EKG12_ITS ---
Test Reason : rhythm change Blood Pressure : / mmHG Vent. Rate : 133 BPM Atrial Rate : 133 BPM P-R Int : 084 ms QRS Dur : 068 ms QT Int : 288 ms P-R-T Axes : 092 080 -23 degrees QTc Int : 428 ms Atrial tachycardia Low voltage QRS Nonspecific T wave abnormality Abnormal ECG When compared with ECG of 21-AUG-2021 23:13, TX interval has decreased Vent. rate has increased BY 62 BPM T wave inversion more evident in Inferior leads Nonspecific T wave abnormality now evident in Anterolateral leads Confirmed by SHERIF CALLOWAY, MILDRED ([id number]), editor city AMALIA MEJIA ([id number]) on 07/13/2022 10:07:45 AM Referred By: Thomas Confirmed By:MILDRED GORMAN MD
[2022-07-10] VITALS (9 sets, daily range): BP systolic 98–151; BP diastolic 62–79; PULSE 78–147; RESP 15–18; TEMP 36.6–37.2; O2SAT 95–97
--- NOTE | 2022-07-10 00:11 | PCM.HOSP.N ---
Hospitalist Note Patient with noted atrial fibrillation with RVR, noted history, not new. Administered lopressor in the ED and 50 mg metoprolol 07/09/22 evening. Will trial cardizem bolus and reassess.
[2022-07-10] MEDS: dilTIAZem 25 MG/5 ML Vial 10 MG IV BOLUS (00:30)
[2022-07-10] MEDS: 0.9% Normal Saline 1,000 ML 999 ML IV (01:46)
[2022-07-10 05:55] LABS: Absolute Lymphocyte Count 1.76 X10^3/uL (0.83-4.51); Absolute Neutrophil Count 4.8 X10^3/uL (2.0-7.7); Basophil# 0.05 X10^3/uL; Basophil% 0.7 % (0-1); Eosinophil# 0.21 X10^3/uL; Eosinophils% 2.9 % (0-5); Hematocrit 32.5 % (37-47); Hemoglobin 10.3 g/dL (12.0-15.0); Lymphocyte # 1.76 X10^3/ul (0.83-4.51); Lymphocyte % 24.3 % (19-41); Mean Corp Hgb Conc 31.7 g/dL (32-36); Mean Corpuscular Hgb 27.2 pg (27.0-32.0); Mean Platelet Vol. 9.9 fl (6.2-12.0); Monocyte# 0.42 X10^3/uL; Monocyte% 5.8 % (0-10); NRBC Flagged by Analyzer 0 % (0-5); Neutrophil # 4.78 X10^3/uL (2.7-7.7); Platelet Count 283 K/mm3 (150-450); RBC Distribution Width CV 15.1 % (11.6-14.6); RBC Distribution Width SD 47.9 fl (35.1-43.9); Red Blood Count 3.78 M/mm3 (4.2-5.4); White Blood Count 7.2 K/mm3 (4.4-11.0)
[2022-07-10 06:03] LABS: Prothrombin Time (Protime)PT. 55.1 SECONDS (11.7-14.9)
[2022-07-10] MEDS: Metoprolol Tartrate 50 MG Tablet PO ×2 (06:04→21:17)
[2022-07-10] MEDS: 0.9% Normal Saline 1,000 ML 100 ML IV (06:04)
[2022-07-10 06:07] LABS: International Normalized Ratio 6.2
[2022-07-10 06:26] LABS: Anion Gap 5 (5-15); BUN 61 mg/dL (7-18); BUN/Creat Ratio 31.4 RATIO (10-20); Calcium,Total 8.6 mg/dL (8.5-10.1); Chloride 108 mmol/L (98-107); Creatinine, Serum 1.94 mg/dL (0.55-1.02); EST Glomerular Filtration Rate 27 mL/min (>60); Est Glom Filt Rate - Afr Amer 33 mL/min (>60); Estimated Creatinine Clearance 20.36 ml/min; Glucose 65 mg/dL (74-106); Potassium 3.9 mmol/L (3.5-5.1); Sodium Level 139 mmol/L (136-145); Thyroid Stim Hormone (TSH) 0.94 uIU/mL (0.358-3.74)
[2022-07-10 07:15] LABS: Bedside Glucose 66 mg/dL (74-106)
[2022-07-10 07:15] LABS: Bedside Glucose 87 mg/dL (74-106)
[2022-07-10 08:51] LABS: Hemoglobin A1c 6.3 % (3.8-5.6)
[2022-07-10] MEDS: amLODIPine 10 MG Tablet PO (09:06)
[2022-07-10] MEDS: Cholecalciferol (VIT D3) 25 MCG TABLET (1,000 UNITS) 50 MCG PO (09:06)
[2022-07-10] MEDS: Tolterodine Tartrate 4 MG CAP.SA PO (09:06)
[2022-07-10] MEDS: Sertraline 100 MG Tablet PO (09:07)
[2022-07-10] MEDS: Ascorbic Acid 500 MG Tablet PO (09:07)
[2022-07-10] MEDS: Ferrous Sulfate 325 MG Tablet PO (09:07)
[2022-07-10] MEDS: Multivitamins,Therapeutic Tablet 1 TABLET PO (09:07)
--- NOTE | 2022-07-10 09:32 | MRI_ITS ---
INDICATION: right 3rd finger osteomyelitis -- suspected osteomyelitis EXAMINATION: MRI - MR Hand W/O Contrast TECHNIQUE: Multiplanar and multisequence MR images were performed of the . IV Contrast Dosage and Agent: None. COMPARISON: None. FINDINGS: JOINTS: No joint effusion. MUSCLES: No edema or myositis. BONE: The third distal phalanx is absent likely on a postsurgical basis with metal artifact seen in this region. The third middle phalanx demonstrates diffuse marrow edema. There is cortical disruption of the medial and lateral aspects of the third middle phalanx. Findings are consistent with osteomyelitis. OTHER SOFT TISSUES: There is a moderate amount of fluid surrounding the third flexor digitorum profundus and superficialis tendons consistent with tenosynovitis. There is a diffuse subcutaneous edema seen within the third phalanx consistent with cellulitis. MRI/Upper Ext/No Jt/ wo IMPRESSION: Status post amputation third distal phalanx. Moderate marrow edema third middle phalanx with the cortical disruption at its medial lateral aspects. Findings are of concern for osteomyelitis. Cellulitis of the third digit. Tenosynovitis of the third flexor digitorum profundus and superficialis tendons. Electronically Signed: Guanaco Sandhu MD, MICHELLE at 11:53 EST ,
--- NOTE | 2022-07-10 10:34 | CPS ---
not started, pt not in room
[2022-07-10] MEDS: Insulin Lispro 100 UNIT/ML INSULN.PEN SC (11:06)
[2022-07-10 11:40] LABS: Bedside Glucose 200 mg/dL (74-106)
--- NOTE | 2022-07-10 12:00 | CASEMGMT ---
RN?CM?DATA PROGRAMMER?CM?to room to meet with patient for initial transition planning/care coordination?assessment.?RN?CM?introduced self and role at [facility].? Pt voices understanding and consents to?assessment?at this time.? Pt sitting up in chair in room in no distress at this time.? Pt is A/O at this time and answers all questions appropriately.?? Care providers, pharmacy, and demographics verified/updated at this time. PCP: Dr Reagan Specialists: Dr Wesley Preferred Pharmacy: [facility] Insurance: [place] [facility] Prescription Benefit:?Yes Living Will/HPOA:?Has LW and HCPOA, who are her sisters, Kim and Dulce Maria. LNOK: sisters, Kim and Dulce Maria Living Arrangements: Lives alone in 5-story home w/1 step to enter. FFSU. Indep w/ADL's and manages her own medications. She orders groceries on-line. She states she is able to prepare some of her meals, but she hires a private-pay caregiver 5 days a week for 4 hrs/day to assist w/this and other home mgmt tasks. She states d/t cost, she plans to start having her come only 3 days a week. She states she thinks she has Passport. She states a CM from [facility] home just recently evaluated her and she is on a waiting list for services. Martita PRESSLEY, made aware. Transportation:?Pt does not drive. Either the caregiver or pt's friend provide transportation for her. DME: States has the following DME:?shower chair, hospital bed, lift chair, rails/grab bars, rollator, medical alert button, functioning glucometer w/supplies, pulse ox, CPAP from [facility]. ? Pt states no need for further DME at this time.? HHC/SNF: Hx [facility] in 2021. Pt would like [facility] @ d/c. Pt made aware she will be provided w/list of local [facility] agencies to review. Pt wishes to return home and states has no concerns with going home at time of discharge.??CM?to follow for any further discharge planning/needs.? Pt voices no further concerns/needs at this time.? Advised pt to ask for?CM?if any further questions/concerns/needs arise.? Voices understanding. PLAN:??Home w/HHC. Pt to be provided w/list of HHC options. Reynaldo BSN?RN?CM
--- NOTE | 2022-07-10 12:04 | PN.HOSP_ITS ---
Reason for Visit Reason for Visit: Diagnoses Cellulitis of right finger (07/09/22) Acute kidney failure, unspecified (07/09/22) Subjective Subjective Patient seen and examined. She had no active complaints today and had an uneventful night. Pain on right middle finger is well controlled. Review of systems is otherwise negative. She did developed afib with RVR overnight, but this resolved with cardizem and IVF. She has remained hemodynamically stable. Objective Data Objective Data Vital Signs: Vital Signs Temp Pulse Resp BP Pulse Ox O2 Del Method O2 Flow Rate 98.8 F 81 16 117/79 96 Nasal Cannula 2 07/10/22 11:15 07/10/22 11:15 07/10/22 11:15 07/10/22 11:15 07/10/22 11:15 07/10/22 11:15 07/10/22 11:15 Oxygen Flow Rate (L/min) 2 Oxygen Delivery Method Nasal Cannula Weight: 187 lb 2.759 oz Body Mass Index (BMI) 35.4 Intake & Output: Intake and Output for Last 24 Hours 07/08/22 07/09/22 07/10/22 23:59 23:59 23:59 Intake Total 925 / 925 2317.17 / 2317.17 Balance 925 / 925 2317.17 / 2317.17 Lab / Micro Data Result Diagrams: 07/10/22 05:42 07/10/22 05:42 Labs: Laboratory Results - last 24 hr 07/09/22 15:43: WBC 8.8, RBC 4.37, Hgb 12.0, Hct 37.7, MCV 86.3, MCH 27.5, MCHC 31.8 L, RDW Std Deviation 48.1 H, RDW Coeff of Zee 15.2 H, Plt Count 369, MPV 10.0, Immature Gran % (Auto) 0.500, Neut % (Auto) 75.9 H, Lymph % (Auto) 16.2 L, [place] % (Auto) 4.9, Eos % (Auto) 2.0, Baso % (Auto) 0.5, Absolute Neuts (auto) 6.7, Absolute Lymphs (auto) 1.42, Nucleated RBC % 0 07/09/22 15:43: Sodium 135 L, Potassium 4.5, Chloride 101, Carbon Dioxide 25.0, Anion Gap 9, BUN 68 H, Creatinine 2.33 H, Est GFR (MDRD) Af Amer 27 L, Est GFR (MDRD) Non-Af 22 L, BUN/Creatinine Ratio 29.2 H, Glucose 167 H, Calcium 9.9 07/09/22 15:43: Lactic Acid 2.7 H* 07/09/22 15:43: PT 46.0 H, INR 5.0 H* 07/09/22 15:43: Phosphorus 4.3, Magnesium 2.3 07/09/22 20:40: Lactic Acid 0.9 07/09/22 22:04: POC Glucose 59 L 07/09/22 22:41: POC Glucose 122 H 07/10/22 05:42: Sodium 139, Potassium 3.9, Chloride 108 H, Carbon Dioxide 26.0, Anion Gap 5, BUN 61 H, Creatinine 1.94 H, Estim Creat Clear Calc 20.36, Est GFR (MDRD) Af Amer 33 L, Est GFR (MDRD) Non-Af 27 L, BUN/Creatinine Ratio 31.4 H, Glucose 65 L, Calcium 8.6, TSH 0.94 07/10/22 05:42: Hemoglobin A1c 6.3 H 07/10/22 05:42: WBC 7.2, RBC 3.78 L, Hgb 10.3 L, Hct 32.5 L, MCV 86.0, MCH 27.2, MCHC 31.7 L, RDW Std Deviation 47.9 H, RDW Coeff of Zee 15.1 H, Plt Count 283, MPV 9.9, Immature Gran % (Auto) 0.300, Neut % (Auto) 66.0, Lymph % (Auto) 24.3, [place] % (Auto) 5.8, Eos % (Auto) 2.9, Baso % (Auto) 0.7, Absolute Neuts (auto) 4.8, Absolute Lymphs (auto) 1.76, Nucleated RBC % 0 07/10/22 05:42: PT 55.1 H, INR 6.2 H* 07/10/22 06:31: POC Glucose 66 L 07/10/22 06:54: POC Glucose 87 07/10/22 11:03: POC Glucose 200 H Radiography Diagnostic Testing: Radiology Impression Hand X-Ray 07/09/22 15:50 IMPRESSION: 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 Diffuse soft tissue swelling of the third digit without evidence for acute fracture or osteomyelitis Electronically Signed: Monty Kaye MD at 16:09 EST , Upper Extremity MRI 07/10/22 09:32 IMPRESSION: Status post amputation third distal phalanx. Moderate marrow edema third middle phalanx with the cortical disruption at its medial lateral aspects. Findings are of concern for osteomyelitis. Cellulitis of the third digit. Tenosynovitis of the third flexor digitorum profundus and superficialis tendons. Electronically Signed: Guanaco Sandhu MD, MICHELLE at 11:53 EST , Physical Exam Const alert, oriented x3 and no apparent distress HEENT head/scalp atraumatic, moist oral mucous membranes and oropharynx normal Head and Scalp: normocephalic Mouth: oral and palatal mucosa normal Eyes PERRL, EOMs intact bilaterally and conjunctivae normal Neck no lymphadenopathy and supple Resp normal respiratory effort, no retractions and no use of accessory muscles Cardio regular rate, regular rhythm, S1 normal heart sound, S2 normal heart sound and no murmurs GI normal to inspection, nondistended, normoactive bowel sounds, soft to palpation and non-tender Extremity Extremity Narrative: middle finger is bandaged. 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 She noted increased redness and drainage from the 3rd finger stump * was seen on 07/06/2022 in the ED and sent home on Keflex. Wound cultures positive for MRSA * wound cultures are pending * on IV vancomycin. * xray showed diffuse soft tissue swelling of the third digit without evidence of acute fracture or osteomyelitis. * plastic surgery consulted * blood cultures from 07/06/2022 growing MRSA. Will consult infectious disease and order 2D echo * #paroxysmal afib * was in afib with RVR on admission, but is now in NSR after being given cardizem * on coumadin. INR was 5 on admission. * last echo in September 2018 showed EF of 75% and mild aortic stenosis as well as RVSP of 48mmhg. * 2D echo ordered o/a of MRSA bacteremia * #History of right temporal lobe CVA * on high intensity satin. On coumadin, which is now on hold due to INR of 5. * #Hypertension and dyslipidemia: on amlodipine. lisinopril on hold. #Hyperlipidemia: on statin #Lactic acidosis: lactic acid was 2.7. hydrated with IVF. NO clear evidence of sepsis. Will monitorl #Supratherapeutic INR * INR was 5 on admission, now 6.2 today. * given vitamin K today. * Will monitor INR. Coumadin on hold. * #CRISTIAN on CKD 3: * Cr is 1.94 today, as 2.33 on admission. * baseline Cr is ~ 1.1 * being gently hydrated with IVF. Will monitor. * #CHronic urinary retention: on oxybutinin DVT prophylaxis: coumadin on hold as INR is supratherapeutic Charges/Coding Visit Charges Inpatient E&M: 56256 [facility] Hosp L3
--- NOTE | 2022-07-10 12:34 | ECHOD_ITS ---
Reason For Study: EMBOLI Procedure This was a 2D Doppler, Color Flow transthoracic echocardiogram. Exam performed portable in patient room. Left Ventricle Normal LV size. Left ventricular systolic function is normal. The estimated ejection fraction is 60 %. Stage 2 diastolic dysfunction. No regional wall motion abnormalities noted. Right Ventricle Normal RV size. Normal systolic function. Atria Normal left atrium. Normal right atrium. Mitral Valve There is moderate mitral annular calcification. Mild (1+) eccentric mitral valve insufficiency. Tricuspid Valve Normal tricuspid valve. Mild (1+) tricuspid valve insufficiency. Pulmonary artery systolic pressure is 38 mmHg. Aortic Valve Trisinus/trileaflet aortic valve. Pulmonic Valve Normal pulmonic valve. Great Vessels Normal aortic root. The pulmonary artery is normal size. Normal inferior vena cava. Pericardium/Pleural No pericardial effusion. MMode/2D Measurements & Calculations LVIDd: 4.3 cm IVSd: 0.87 cm Ao root diam: 3.0 cm LVIDs: 2.5 cm LVPWd: 1.0 cm RVDd: 3.6 cm FS: 40.3 % LAV(MOD-bp): 52.0 ml LVAd ap4: 24.8 cm2 SV(MOD-sp4): 47.3 ml LAV(MOD-bp) Indexed: 28.3 ml/m2 LVLd ap4: 7.2 cm LAV(MOD-sp2): 50.9 ml EDV(MOD-sp4): 69.7 ml LAV(MOD-sp4): 52.2 ml EDV(sp4-el): 72.6 ml LVAs ap4: 12.5 cm2 LVLs ap4: 6.0 cm ESV(MOD-sp4): 22.4 ml ESV(sp4-el): 22.2 ml EF(MOD-sp4): 67.9 % EF(sp4-el): 69.4 % SV(sp4-el): 50.4 ml LA A4 area: 19.9 cm2 LA dimension(2D): 3.7 cm RA A4 area: 17.8 cm2 Time Measurements MV dec time: 0.26 sec Doppler Measurements & Calculations MV E max bridger: 144.6 cm/sec Lat Peak E' Bridger: 9.7 cm/sec Med Peak E' Bridger: 8.4 cm/sec MV A max bridger: 106.9 cm/sec E/E' lat: 15.0 E/E' med: 17.2 MV E/A: 1.4 MV V2 max: 156.1 cm/sec MV P1/2t max bridger: 159.1 cm/sec Ao V2 max: 158.7 cm/sec MV max P.7 mmHg MV P1/2t: 106.4 msec Ao max P.1 mmHg MV V2 mean: 87.4 cm/sec MV mean P.5 mmHg MV dec slope: 437.7 cm/sec2 MV V2 VTI: 43.7 cm MVA(P1/2t): 2.1 cm2 LV V1 max: 102.9 cm/sec PA V2 max: 90.1 cm/sec TR max bridger: 290.8 cm/sec LV V1 max P.2 mmHg TR max P.8 mmHg ECHO/Echo Complete Interpretation Summary Normal LV size. Left ventricular systolic function is normal. The estimated ejection fraction is 60 %. Stage 2 diastolic dysfunction. There is moderate mitral annular calcification. Ordering Physician: Kisha Lopez Referring Physician: BERNIE SLOAN Performed By: Fabi Bonilla RDCS
[2022-07-10] MEDS: Juven (unflavored) Packet 1 PACKET PO (16:48)
[2022-07-10 17:11] LABS: Bedside Glucose 144 mg/dL (74-106)
[2022-07-10] MEDS: Atorvastatin Calcium 40 MG Tablet PO (21:17)
[2022-07-11] VITALS (7 sets, daily range): BP systolic 124–148; BP diastolic 65–94; PULSE 64–77; RESP 15–18; TEMP 36.4–37.2; O2SAT 93–99
[2022-07-11 00:45] LABS: Bedside Glucose 109 mg/dL (74-106)
[2022-07-11 06:37] LABS: Absolute Lymphocyte Count 1.87 X10^3/uL (0.83-4.51); Absolute Neutrophil Count 4.7 X10^3/uL (2.0-7.7); Basophil# 0.03 X10^3/uL; Basophil% 0.4 % (0-1); Eosinophil# 0.26 X10^3/uL; Eosinophils% 3.6 % (0-5); Hematocrit 31.8 % (37-47); Hemoglobin 10.1 g/dL (12.0-15.0); Lymphocyte # 1.87 X10^3/ul (0.83-4.51); Lymphocyte % 25.8 % (19-41); Mean Corp Hgb Conc 31.8 g/dL (32-36); Mean Corpuscular Hgb 27.2 pg (27.0-32.0); Mean Corpuscular Volume 85.7 fL (81-99); Mean Platelet Vol. 10.3 fl (6.2-12.0); Monocyte# 0.38 X10^3/uL; Monocyte% 5.2 % (0-10); NRBC Flagged by Analyzer 0 % (0-5); Neutrophil # 4.67 X10^3/uL (2.7-7.7); Neutrophil % 64.6 % (47-70); Platelet Count 270 K/mm3 (150-450); RBC Distribution Width CV 15.1 % (11.6-14.6); RBC Distribution Width SD 47.4 fl (35.1-43.9); Red Blood Count 3.71 M/mm3 (4.2-5.4); White Blood Count 7.2 K/mm3 (4.4-11.0)
[2022-07-11 06:48] LABS: International Normalized Ratio 1.4; Prothrombin Time (Protime)PT. 17.2 SECONDS (11.7-14.9)
[2022-07-11 06:50] LABS: Bedside Glucose 94 mg/dL (74-106)
[2022-07-11 07:04] LABS: Anion Gap 6 (5-15); BUN 58 mg/dL (7-18); BUN/Creat Ratio 36.2 RATIO (10-20); Calcium,Total 9.1 mg/dL (8.5-10.1); Chloride 108 mmol/L (98-107); EST Glomerular Filtration Rate 34 mL/min (>60); Est Glom Filt Rate - Afr Amer 41 mL/min (>60); Estimated Creatinine Clearance 24.69 ml/min; Glucose 84 mg/dL (74-106); Potassium 4.2 mmol/L (3.5-5.1); Sodium Level 140 mmol/L (136-145)
[2022-07-11] MEDS: Sertraline 100 MG Tablet PO (08:37)
[2022-07-11] MEDS: Metoprolol Tartrate 50 MG Tablet PO ×2 (08:37→21:01)
[2022-07-11] MEDS: Tolterodine Tartrate 4 MG CAP.SA PO (08:37)
[2022-07-11] MEDS: Multivitamins,Therapeutic Tablet 1 TABLET PO (08:37)
[2022-07-11] MEDS: Ferrous Sulfate 325 MG Tablet PO (08:37)
[2022-07-11] MEDS: amLODIPine 10 MG Tablet PO (08:38)
[2022-07-11] MEDS: Cholecalciferol (VIT D3) 25 MCG TABLET (1,000 UNITS) 50 MCG PO (08:38)
[2022-07-11] MEDS: Ascorbic Acid 500 MG Tablet PO (08:39)
[2022-07-11] MEDS: Insulin Lispro 100 UNIT/ML INSULN.PEN SC ×2 (11:26→17:08)
[2022-07-11 11:45] LABS: Bedside Glucose 229 mg/dL (74-106)
--- NOTE | 2022-07-11 13:18 | PN_ITS ---
Subjective Subjective Patient seen and examined. She had no active complaints and had an uneventful night. Review of systems otherwise negative. She has remained hemodynamically stable. Objective Data Objective Data Vital Signs: Vital Signs Temp Pulse Resp BP Pulse Ox O2 Del Method O2 Flow Rate 99.0 F 74 15 140/75 H 97 Room Air 2 07/11/22 08:28 07/11/22 08:37 07/11/22 08:28 07/11/22 08:37 07/11/22 08:28 07/11/22 08:40 07/11/22 08:28 Oxygen Flow Rate (L/min) 2 Oxygen Delivery Method Room Air Weight: 187 lb 2.759 oz Body Mass Index (BMI) 35.4 Intake & Output: Intake and Output for Last 24 Hours 07/09/22 07/10/22 07/11/22 23:59 23:59 23:59 Intake Total 925 / 925 3663.84 / 3663.84 300 / 300 Balance 925 / 925 3663.84 / 3663.84 300 / 300 Lab / Micro Data Result Diagrams: 07/11/22 05:10 07/11/22 05:10 Labs: Laboratory Results - last 24 hr 07/10/22 16:43: POC Glucose 144 H 07/10/22 22:53: POC Glucose 109 H 07/11/22 05:10: WBC 7.2, RBC 3.71 L, Hgb 10.1 L, Hct 31.8 L, MCV 85.7, MCH 27.2, MCHC 31.8 L, RDW Std Deviation 47.4 H, RDW Coeff of Zee 15.1 H, Plt Count 270, MPV 10.3, Immature Gran % (Auto) 0.400, Neut % (Auto) 64.6, Lymph % (Auto) 25.8, [place] % (Auto) 5.2, Eos % (Auto) 3.6, Baso % (Auto) 0.4, Absolute Neuts (auto) 4.7, Absolute Lymphs (auto) 1.87, Nucleated RBC % 0 07/11/22 05:10: PT 17.2 H, INR 1.4 07/11/22 05:10: Sodium 140, Potassium 4.2, Chloride 108 H, Carbon Dioxide 26.0, Anion Gap 6, BUN 58 H, Creatinine 1.60 H, Estim Creat Clear Calc 24.69, Est GFR (MDRD) Af Amer 41 L, Est GFR (MDRD) Non-Af 34 L, BUN/Creatinine Ratio 36.2 H, Glucose 84, Calcium 9.1 07/11/22 06:32: POC Glucose 94 07/11/22 11:25: POC Glucose 229 H Physical Exam Const alert, oriented x3 and no apparent distress General Appearance: cooperative HEENT normocephalic, head/scalp atraumatic, moist oral mucous membranes and oropharynx normal Eyes PERRL, EOMs intact bilaterally and conjunctivae normal Neck no lymphadenopathy and supple Resp normal respiratory effort, normal air movement, no retractions and no use of accessory muscles Cardio regular rate, regular rhythm, S1 normal heart sound, S2 normal heart sound and no murmurs GI normal to inspection, nondistended, normoactive bowel sounds, soft to palpation and non-tender Extremity Extremity Narrative: middle finger is bandaged. 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 She noted increased redness and drainage from the 3rd finger stump * was seen on 07/06/2022 in the ED and sent home on Keflex. Wound cultures positive for MRSA * wound cultures are pending * on IV vancomycin. * xray showed diffuse soft tissue swelling of the third digit without evidence of acute fracture or osteomyelitis. * MRI of the right upper extremity showed moderate no edema of the third middle phalanx with cortical disruption noted to medial lateral aspect findings concerning for osteomyelitis. * plastic surgery consulted; awaiting evaluation. * blood cultures from 07/06/2022 growing MRSA. * ID consulted. 2D echo pending. * #paroxysmal afib * was in afib with RVR on admission, but is now in NSR after being given cardizem * on coumadin. INR was 5 on admission. * last echo in September 2018 showed EF of 75% and mild aortic stenosis as well as RVSP of 48mmhg. * 2D echo ordered o/a of MRSA bacteremia * INR today is 1.4 * #History of right temporal lobe CVA * on high intensity statin. On coumadin, which is now on hold due to INR of 5. * #Hypertension and dyslipidemia: on amlodipine. lisinopril on hold. #Hyperlipidemia: on statin #Lactic acidosis: resolved. #Supratherapeutic INR * resolved. INR is now 0.9 * #CRISTIAN on CKD 3: * Cr is 1.60 today, was 2.33 on admission. * baseline Cr is ~ 1.1 * improving. will trend Cr. * #Chronic urinary retention: on oxybutinin DVT prophylaxis:will put on therapeutic lovenox, pending plastic surgery evaluation as she may need operative intervention Charges/Coding Visit Charges Inpatient E&M: 36171 Subs Hosp L2
[2022-07-11 16:56] LABS: Vancomycin, Trough Level 11.6 ug/mL (5.0-15.0)
[2022-07-11 17:31] LABS: Bedside Glucose 220 mg/dL (74-106)
--- NOTE | 2022-07-11 17:36 | PCM.RX.CS ---
Consult Pharmacy has been consulted to manage selected antiobiotic: Vancomycin Type of Consult: Follow-up Suspected Infection: Skin/Soft tissue Labs: Sodium 140 mmol/L (136-145) 07/11/22 05:10 Potassium 4.2 mmol/L (3.5-5.1) 07/11/22 05:10 Chloride 108 mmol/L (98-107) H 07/11/22 05:10 Carbon Dioxide 26.0 mmol/L (21.0-32.0) 07/11/22 05:10 Anion Gap 6 (5-15) 07/11/22 05:10 BUN 58 mg/dL (7-18) H 07/11/22 05:10 Creatinine 1.60 mg/dL (0.55-1.02) H 07/11/22 05:10 Est GFR (MDRD) Af Amer 41 mL/min (>60) L 07/11/22 05:10 Est GFR (MDRD) Non-Af 34 mL/min (>60) L 07/11/22 05:10 BUN/Creatinine Ratio 36.2 RATIO (10-20) H 07/11/22 05:10 Glucose 84 mg/dL (74-106) 07/11/22 05:10 Vancomycin Trough 11.6 ug/mL (5.0-15.0) 07/11/22 16:25 Goal Trough: 15-20 mcg/mL Pharmacy Plan for Drug Dosing: VANCOMYCIN LEVEL RECEIVED Current Vancomycin Dose: 750mg q24h (at 1700) Number of Doses Received: x1 1250mg dose in the ER on 07/09/22, and x1 750mg dose on 07/10/22 Vancomycin Level: 11.6 Hours Since Last Dose: 24 hours Renal Function: SrCr 1.6 Renal Function Trend: SrCr improving (was 2.33 on 07/09) Lab/Micro: Vancomycin Plan/Comments: recommend increasing Vancomycin to 1000mg q24 and checking trough prior to the 3rd dose Pending Level: 07/14/22 at 1630 Pharmacy Service will continue to monitor and adjust dosing as required. Follow-Up Labs: Trough Vancomycin - 07/14/22 at 1630
[2022-07-11] MEDS: Acetaminophen 325 MG Tablet 650 MG PO (21:01)
[2022-07-11] MEDS: Atorvastatin Calcium 40 MG Tablet PO (21:01)
[2022-07-11 23:15] LABS: Bedside Glucose 71 mg/dL (74-106)
[2022-07-12] VITALS (10 sets, daily range): BP systolic 130–164; BP diastolic 53–89; PULSE 60–72; RESP 16–18; TEMP 36.5–36.8; O2SAT 92–98; BMI 35.4
--- NOTE | 2022-07-12 | BON_PTH ---
PATIENT: JOSELINE RIDDLE LOC: [facility] U#:[id number] AGE/SX: 72/F ROOM: [facility] RE07/09/[address]: Dr. Guanaco Jasmine DO : 1950 BED: 1 DIS: 07/15/2022 SPEC #: [id number] RECD: 07/12/22 16:53 STATUS: MELODY REQ #: [id number] ELIANA: 07/12/22 00:[address]: Kiran Wolff DEPT: SURGICAL PATHOLOGY RECD BY: Wayne Ceja ENTERED: 07/13/22 10:02 SP TYPE: Bone OTHR DR: MD Dr. Kiran Braajas MD Dr. Mark Tereletsky, DO Dr. Nana Yaa Koram, MD Dr. Prakash Chand, MD Dr. Robert Leininger, MD Tissues: A - Finger, NOS B - Bone of hand, NOS Procedures: Decalcification bone/plaque Surgery Specimen Level IV Surgery Specimen Level V Comments: @ Ordering doctor for DEC edited from to DR.JSLABY Brayan CHESTER at 07/13/22 145 @ Ordering doctor for SUIII edited from to DR.JSLABY Brayan CHESTER at 07/13/22 1450 @ Submitting doctor edited from to DR.JSLABY Brayan CHESTER at 07/13/22 1450 HEADER OPERATION: I & D long finger amputation stump, partial ostectomy PRE-OP DIAGNOSIS: Stump MRSA infection right long finger TISSUE SUBMITTED: A ? Right long finger bone, B - Right long finger tissue MICROSCOPIC DIAGNOSIS A. Right long finger bone, bone biopsy: Acute osteomyelitis. B. Skin and tissue of right long finger, biopsy: Ulceration with acute and chronic inflammation and granulation. Hyperkeratosis. AM:lea 07/16/2022 MICROSCOPIC DESCRIPTION Slides are reviewed. GROSS DESCRIPTION A - Received in fixative is one container labeled with the patient's name and designated right long finger bone. The specimen consists of multiple fragments of bone that in aggregate measure 1.5 x 1.5 x 0.3 cm. The specimen is totally submitted in one cassette after decalcification. B - Received in fixative is one container labeled with the patient's name and designated right long finger soft tissue. The specimen consists of a ring-shaped piece of skin measuring 1.8 x 1.8 x 0.5 cm. A central defect is noted measuring 0.7 cm in greatest dimension. The skin surface shows an extensive area of ulceration. The specimen is serially sectioned and submitted entirely in one cassette. / ALEE:lea 07/13/2022 TC:2 CPT: 14114, 42499, 01975
[2022-07-12 06:53] LABS: Absolute Lymphocyte Count 1.94 X10^3/uL (0.83-4.51); Absolute Neutrophil Count 4.2 X10^3/uL (2.0-7.7); Basophil# 0.04 X10^3/uL; Basophil% 0.6 % (0-1); Eosinophil# 0.27 X10^3/uL; Hematocrit 31.2 % (37-47); Lymphocyte # 1.94 X10^3/ul (0.83-4.51); Lymphocyte % 28.7 % (19-41); Mean Corp Hgb Conc 32.1 g/dL (32-36); Mean Corpuscular Hgb 27.5 pg (27.0-32.0); Mean Corpuscular Volume 85.7 fL (81-99); Mean Platelet Vol. 10.2 fl (6.2-12.0); Monocyte# 0.33 X10^3/uL; Monocyte% 4.9 % (0-10); NRBC Flagged by Analyzer 0 % (0-5); Neutrophil # 4.15 X10^3/uL (2.7-7.7); Neutrophil % 61.5 % (47-70); Platelet Count 254 K/mm3 (150-450); RBC Distribution Width CV 14.7 % (11.6-14.6); Red Blood Count 3.64 M/mm3 (4.2-5.4); White Blood Count 6.8 K/mm3 (4.4-11.0)
[2022-07-12 06:55] LABS: Bedside Glucose 110 mg/dL (74-106)
[2022-07-12 07:03] LABS: International Normalized Ratio 1.3
[2022-07-12 07:18] LABS: Anion Gap 5 (5-15); BUN 43 mg/dL (7-18); BUN/Creat Ratio 34.1 RATIO (10-20); Calcium,Total 9.1 mg/dL (8.5-10.1); Chloride 111 mmol/L (98-107); Creatinine, Serum 1.26 mg/dL (0.55-1.02); EST Glomerular Filtration Rate 45 mL/min (>60); Est Glom Filt Rate - Afr Amer 54 mL/min (>60); Estimated Creatinine Clearance 31.35 ml/min; Glucose 113 mg/dL (74-106); Potassium 4.1 mmol/L (3.5-5.1); Sodium Level 141 mmol/L (136-145)
[2022-07-12] MEDS: Multivitamins,Therapeutic Tablet 1 TABLET PO (07:32)
[2022-07-12] MEDS: Ferrous Sulfate 325 MG Tablet PO (07:32)
[2022-07-12] MEDS: Juven (unflavored) Packet 1 PACKET PO ×2 (07:32→16:45)
[2022-07-12] MEDS: Cholecalciferol (VIT D3) 25 MCG TABLET (1,000 UNITS) 50 MCG PO (09:43)
[2022-07-12] MEDS: Ascorbic Acid 500 MG Tablet PO (09:43)
[2022-07-12] MEDS: Sertraline 100 MG Tablet PO (09:43)
[2022-07-12] MEDS: Metoprolol Tartrate 50 MG Tablet PO ×2 (09:43→20:42)
[2022-07-12] MEDS: amLODIPine 10 MG Tablet PO (09:43)
[2022-07-12] MEDS: Tolterodine Tartrate 4 MG CAP.SA PO (09:43)
--- NOTE | 2022-07-12 10:58 | CON.PCM_ITS ---
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 Labs and cultures and x-rays reviewed. MRI reviewed. Patient has a nonhealing amputation stump MRSA ulcer with exposed bone suspicious for osteomyelitis. She has diabetes mellitus and is at risk for worsening infection that may extend to other parts of the hand which may lead to stiffness and difficulty with range of motion. Recommend urgent operative inter vention today to drain the MRSA abscess and to excise the exposed bone with partial ostectomy for osteomyelitis. Will leave the wound open and proceed with Silver dressing changes. I don't want to wait to do the surgery because of the risk of worsening infection. Surgery will be done under local anesthesia with digital metacarpal block and digital tourniquet. Will send soft tissue and bone to Pathology for analysis to rule out carcinoma and to evaluate for osteomyelitis. Will send soft tissue and bone to Microbiology for culture. A positive culture may necessitate antibiotic modification. She is currently on Vancomycin. She may need a PICC line for long term care administrator IV antibiotics. Infectious Diseases has been consulted to assist with antibiotic management. Anticipate increased metabolic demands from the ulcer and the infection. Will check a Prealbumin and encourage nutritional supplementation with protein to help the healing process. After discharge she [facility]. If there is a plateau in the healing process can proceed with revision amputation for closure after the infection has been treated. For any revision surgery which is elective, the HgbA1c needs to be less than 8. Her last HgbA1c was on 07/10/22 and it was 6.3. Patient was informed of the risks and complications of the procedure including alternatives to surgery. These were discussed with the patient personally. Patient voices understanding and wishes to proceed. Potential risks and complications included but not inclusive of bleeding, infection, hematoma, bruising, swelling, loss of sensation to skin, wound breakdown, need for wound care, poor scarring, poor aesthetic outcome, intra ope rative cardiac or neurologic events, DVT, PE, and reaction to anesthesia. Patient voices understanding about the urgency to proceed with operative intervention today to minimize worsening infection and stiffness with difficulty with range of motion if the surgery is delayed and wishes to proceed. HPI Consult Data Date of Consult: 07/12/22 PCP / Referring MD: Durga Guzman MD HPI Narrative Reason for Consultation: amputation stump MRSA infection right long finger HPI Narrative: JOSELINE RIDDLE, is a 72 F who presented to the ED with pain and swelling and redness in her right long finger amputation stump that worsened over last few days. Her amputation occurred in 2019 when she cut her finger at home. She went to the ED initially on 07/06/22. X-ray showed swelling without evidence of osteomyelitis. Wound culture was done. She was started on Keflex. The culture came back positive for MRSA and her antibiotic was changed to Bactrim. The blood culture also came back showing MRSA which prompted her return to the ED. During this time her symptoms worsened which led to her admission on 07/09/22. She was started on IV Vancomycin. X-ray was done which showed status post amputation of the distal phalanx of the third digit. Diffuse soft tissue swelling of the third digit without evidence for acute fracture or osteomyelitis. MRI was done on 07/10/22 which showed status post amputation third distal phalanx. Moderate marrow edema third middle phalanx with the cortical disruption at its medial lateral aspects.? Findings are of concern for osteomyelitis. Cellulitis of the third digit. Tenosynovitis of the third flexor digitorum profundus and superficialis tendons. Upon admission, her WBC was 8.8 which decreased to 6.8 today. BUN/Creat was 68/2.33 which decreased to 43/1.26 today. Lactic acid was 2.7 which decreased to 0.9. INR was 5.0 and has decreased to 1.3. HgbA1c was 6.3. I was asked to evaluate this patient for surgical options for treatment. [facility] Medical History (Updated 07/13/22 @ 12:[address] Kiran Wolff MD) Abnormal mammogram of right breast Abnormal mammogram of right breast Abscess of right middle finger Afib Alcohol use Anemia Anemia Anxiety Anxiety and depression Arthritis Atrial fibrillation Back pain Breast lump Burn injury of skin of finger Cardiology follow-up encounter Chronic cough COVID-19 vaccine series completed CPAP (continuous positive airway pressure) dependence CVA (cerebral vascular accident) Depression Depression with anxiety Diabetes Dietary restriction DKA (diabetic ketoacidoses) Essential hypertension Flu vaccine need Former smoker Health care maintenance High cholesterol History of echocardiogram History of edema History of stress test History of UTI HTN (hypertension) Hyperlipidemia Hypertension Irregular heartbeat Kidney disease correction (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 MRSA infection 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 without evidence of necrosis Non-rheumatic mitral valve stenosis Nonrheumatic aortic (valve) stenosis Osteoarthritis Osteomyelitis of finger of right hand Osteoporosis Overactive bladder Pancreatitis Paroxysmal atrial fibrillation Post-menopausal Preoperative evaluation to rule out surgical contraindication Sleep apnea Urinary incontinence, overflow Venous insufficiency Vision problems Walker as ambulation aid Weakness Home Medications ferrous sulfate 325 mg (65 mg iron) tablet 325 mg PO DAILY Supplement 01/27/21 [History Last Taken 07/08/22] ascorbic acid (vitamin C) 500 mg tablet (Vitamin C) 500 mg PO DAILY 08/21/21 [History Last Taken 07/08/22] acetaminophen 325 mg capsule 650 mg PO Q4H PRN Pain 12/02/21 [History Last Taken 07/08/22] cholecalciferol (vitamin D3) 50 mcg (2,000 unit) capsule 50 mcg PO DAILY 03/03/22 [History Last Taken 07/08/22] denosumab 60 mg/mL subcutaneous syringe (Prolia) 60 mg subcut [id number] #1 mL 03/11/22 [Rx Last Taken Unknown] furosemide 40 mg tablet 40 mg PO DAILY Fluid retention #90 tabs 06/24/22 [Rx Last Taken 07/09/22] glimepiride 4 mg tablet 4 mg PO BID dm 3 months #180 tabs 06/24/22 [Rx Last Taken 07/09/22] losartan 50 mg tablet 50 mg PO BID bp #180 tabs 06/24/22 [Rx Last Taken 07/09/22] oxybutynin chloride 15 mg tablet,extended release 24 hr 15 mg PO BID bladder #180 tabs 06/24/22 [Rx Last Taken 07/09/22] sertraline 100 mg tablet (Zoloft) 100 mg PO DAILY anxiety #90 tabs 06/24/22 [Rx Last Taken 07/08/22] metoprolol tartrate 50 mg tablet 50 mg PO BID heart #180 tabs 06/28/22 [Rx Last Taken 07/09/22] warfarin 3 mg tablet 3 mg PO DAILY #30 tabs 07/01/22 [Rx Last Taken 07/09/22] metformin 1,000 mg tablet 1,000 mg PO BID DM #180 tabs 07/06/22 [Rx Last Taken 07/09/22] simvastatin 20 mg tablet 20 mg PO QHS cholesterol #90 tabs 07/06/22 [Rx Last Taken 07/08/22] amlodipine 10 mg tablet 10 mg PO DAILY BP 07/09/22 [History Last Taken 07/09/22] multivitamin 1 tab PO DAILY SUPPLEMENT 07/09/22 [History Last Taken 07/08/22] sulfamethoxazole 800 mg-trimethoprim 160 mg tablet 1 tab PO BID ANTIBIOTIC 07/09/22 [History Last Taken 07/09/22] Allergy/AdvReac Type Severity Reaction Status Date / Time fosinopril [From Monopril] Allergy Unknown unknown Verified 07/06/22 13:48 pioglitazone AdvReac Other Verified 07/06/22 13:48 Family History Father Diabetes Hypertension High cholesterol Heart disease Melanoma Surgical History (Updated 07/13/22 @ 11:[address] Kiran Wolff MD) History of back surgery History of carpal tunnel release History of hand surgery History of hysterectomy History of left elbow replacement History of surgical amputation of finger of right hand Hx of colonoscopy S/P hysterectomy S/P ORIF (open reduction internal fixation) fracture Status post surgical amputation of finger of right hand Social History household members: none Smoking Status: Former smoker how long ago did patient quit smokin years ago alcohol intake: current alcohol intake frequency: holidays/special occasions only substance use type: does not use what type of physical activity do you participate in: other details: aquasize ROS ROS Narrative REVIEW OF SYSTEMS General - Denies fever, fatigue, and weight loss. Eyes - Denies cataracts and glaucoma. ENT - Denies nasal congestion and sore throat. Endocrine - Denies excessive thirst and urination. Has diabetes mellitus. Skin - Denies suspicious lesions and skin cancer. Musculoskeletal - Denies joint pain, joint stiffness, weakness of muscles and joints, back pain, and arthritis. Has right long finger amputation stump ulcer MRSA abscess. Neuro - Denies headaches. Cardiovascular - Denies chest pain, fatigue, and shortness of breath with exertion. History of stroke with some left sided facial asymmetry. Has atrial fibrillation. Has hypertension. Psych - Has anxiety and depression. Respiratory - Denies chronic cough and shortness of breath. Has sleep apnea. Patient is a former smoker. Gastrointestinal - Denies nausea, vomiting, diarrhea, and constipation. Hematologic - Has abnormal bruising and bleeding. On Coumadin for her atrial fibrillation. Genitourinary - Denies hematuria and urinary frequency. Has renal insufficiency. Physical Exam Narrative General - Alert and Oriented. HEENT - PERRL. EOMI. Throat is clear. Has mild left sided facial asymmetry. Neck - Supple and nontender. No cervical adenopathy. Lungs - Clear to auscultation. Heart - Regular rate and rhythm. Abdomen - Soft and nondistended. Extremities - FROM. No axillary adenopathy. Radial pulses are palpable. On right long finger amputation stump through middle phalanx is an ulcer with exposed bone. Surrounding redness and swelling. Some tenderness. She can make a fists. Base of finger at MP joint is nontender. Small amount of drainage no luis alfredo. Neuro -CN II-XII grossly intact except for left sided facial asymmetry. Psych - Normal mood and affect. Medical Records Data Attestation: I reviewed the patient's medical records Lab / Micro Data Attestation: I reviewed the patient's lab results. Result Diagrams: 07/13/22 04:25 07/13/22 04:25 Labs: Laboratory Results - last 24 hr 07/11/22 11:25: POC Glucose 229 H 07/11/22 16:25: Vancomycin Trough 11.6 07/11/22 17:07: POC Glucose 220 H 07/11/22 20:56: POC Glucose 71 L 07/12/22 06:05: PT 16.0 H, INR 1.3 07/12/22 06:05: WBC 6.8, RBC 3.64 L, Hgb 10.0 L, Hct 31.2 L, MCV 85.7, MCH 27.5, MCHC 32.1, RDW Std Deviation 46.0 H, RDW Coeff of Zee 14.7 H, Plt Count 254, MPV 10.2, Immature Gran % (Auto) 0.300, Neut % (Auto) 61.5, Lymph % (Auto) 28.7, [place] % (Auto) 4.9, Eos % (Auto) 4.0, Baso % (Auto) 0.6, Absolute Neuts (auto) 4. 2, Absolute Lymphs (auto) 1.94, Nucleated RBC % 0 07/12/22 06:05: Sodium 141, Potassium 4.1, Chloride 111 H, Carbon Dioxide 25.0, Anion Gap 5, BUN 43 H, Creatinine 1.26 H, Estim Creat Clear Calc 31.35, Est GFR (MDRD) Af Amer 54 L, Est GFR (MDRD) Non-Af 45 L, BUN/Creatinine Ratio 34.1 H, Glucose 113 H, Calcium 9.1 07/12/22 06:16: POC Glucose 110 H Micro: Microbiology 07/09/22 16:21 Blood Culture (Wb) - Right Hand Blood Culture - Preliminary No growth in 48 hours. 07/09/22 15:43 Blood Culture (Wb) - Right Hand Blood Culture - Preliminary No growth in 48 hours. Charges/Coding Visit Charges Inpatient E&M: 88624 Init Hosp L3 (57 Modifier ICD-10 - L02.511, A49.02, L98.496, M86.9, Z89.021, E11.9, N17.9, Z79.01, Z87.891)
--- NOTE | 2022-07-12 11:26 | CASEMGMT ---
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 Radha Plascencia [employer]
[2022-07-12 11:50] LABS: Bedside Glucose 285 mg/dL (74-106)
[2022-07-12 12:25] LABS: Bedside Glucose 249 mg/dL (74-106)
[2022-07-12] MEDS: Lidocaine 1% /Epi 1:100 (20ml) 20 ML Vial (13:22)
--- NOTE | 2022-07-12 13:45 | OP.PCM_ITS ---
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 MRSA abscess right long finger amputation stump ulcer with exposed middle phalanx bone. 2. Osteomyelitis. 3. Status amputation right long finger. 4. Diabetes mellitus. 5. 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 6. Former smoker. Post-Operative Diagnosis: Same. Surgery/Procedure Performed:: 1. Surgical preparation right long finger amputation stump ulcer with incision and drainage and excisional debridement MRSA abscess. 2. Partial ostectomy middle phalanx for osteomyelitis. Description of Surgical Findings:: JOSELINE RIDDLE, is a 72 F who presented to the ED with pain and swelling and redness in her right long finger amputation stump that worsened over last few days.??Her amputation occurred in 2019 when she cut her finger at home.?She went to the ED initially on 07/06/22.? X-ray showed swelling without evidence of osteomyelitis.? Wound culture was done.? She was started on Keflex.? The culture came back positive for MRSA and her antibiotic was changed to Bactrim.? The blood culture also came back showing MRSA which prompted her return to the ED.? During this time her symptoms worsened which led to her admission on 07/09/22.? She was started on IV Vancomycin.? X-ray was done which showed status post amputation of the distal phalanx of the third digit.? Diffuse soft tissue swelling of the third digit without evidence for acute fracture or osteomyelitis. ? MRI was done on 07/10/22 which showed status post amputation third distal phalanx.? Moderate marrow edema third middle phalanx with the cortical disruption at its medial lateral aspects.? Findings are of concern for osteomyelitis.? Cellulitis of the third digit.? Tenosynovitis of the third f lexor digitorum profundus and superficialis tendons.? Upon admission, her WBC was 8.8 which decreased to 6.8 today.? BUN/Creat was 68/2.33 which decreased to 43/1.26 today.? Lactic acid was 2.7 which decreased to 0.9.? INR was 5.0 and has decreased to 1.3.? HgbA1c was 6.3. ? I was asked to evaluate this patient for surgical options for treatment. Patient was informed of the risks and complications of the procedure including alternatives to surgery. These were discussed with the patient personally. Patient voices understanding and wishes to proceed. Potential risks and complications included but not inclusive of bleeding, infection, hematoma, bruising, swelling, loss of sensation to skin, wound breakdown, need for wound care, poor scarring, poor aesthetic outcome, intra operative cardiac or neurologic events, DVT, PE, and reaction to anesthesia. Size of wound right long finger amputation stump - 2 x 2 cm Total tourniquet time - 15 minutes Surgeon: Kiran Wolff MD roadside mechanic: None Type of Anesthesia: Local (digital metacarpal block with xylocaine with epinephrine and digital tourniquet) Specimen's removed: 1. Right long finger amputation stump MRSA ulcer soft tissue to Pathology and Microbiology. 2. Right long finger amputation stump MRSA ulcer bone to Pathology and Microbiology. Drains: None. Estimated Blood Loss (mL): 1. Description of Procedure: Patient was taken to OR in supine position. The right hand was prepped and draped in the usual fashion. SCD's were placed for DVT prophylaxis. Perioperative antibiotics were given intravenously. The right long finger was infiltrated with xylocaine and epinephrine as a digital metacarpal block. After waiting 5 minutes for the anesthetic to take effect, a digital tourniquet was placed. There was exposed bone in the amputation stump ulcer. Under loupe magnification, I incised the infected tissue circumferentially. Small amount of pus was seen. The soft tissue was excised and debrided. A partial ostectomy of the exposed middle phalanx was performed. I excised the bone beneath the skin edge for aid in wound care and in healing. The bone was soft and easily excised. A rasp was used to smooth out the bony edges. Half the soft tissue and half the bone was sent to Pathology for analysis to rule out carcinoma and to evaluate for osteomyelitis. Half the soft tissue and half the bone was sent to Microbiology for culture. A positive culture may necessitate antibiotic modification. The digital tourniquet was released after 15 minutes. Hemostasis obtained with gauze compression. The wound was irrigated with saline. The wound was packed with Silver dressing followed by 2x2 gauze and a 2 inch Keke wrap. Patient tolerated the procedure well and was sent to PACU in satisfactory condition. Patient will be sent upstairs for continued postop care. Will have Silver dressing change tomorrow. Anticipate intermediate use of Vancomycin. Will order a PICC line. Grafts/Implants Used: None. Procedure Start Time: 13:22 Procedure Stop Time: 13:39 Complications None. Admit VTE Documentation VTE Present on Admission: No (patient is on Coumadin for atrial fibrillation) VTE Mechan Device Prophylaxis: SCD's VTE Pharm Prophylaxis ordered?: No Addendum Addendum: Surgery Charges CPT - 04416 ICD-10 - L02.511, A49.02, L98.496, M86.9, Z89.021, E11.9, Z79.01, Z87.891 65875 M86.9, L02.511, A49.02, L98.496, Z89.021, E11.9, Z79.01, Z87.891
--- NOTE | 2022-07-12 14:42 | CON.PCM.ID_ITS ---
Assessment & Plan Assessment/Plan (1) Bacteremia: PLAN: MRSA bacteremia from R 3rd finger infection. Now s/p OR 07/[address] Wolff for I&D. On vanc. Will check repeat bcx and echo. Will follow, thank you (2) Cellulitis of right middle finger: HPI Consult Data Date of Consult: 07/12/22 HPI Narrative Reason for Consultation: finger infection HPI Narrative: JOSELINE RIDDLE, is a 72 F with T2DM, partial R 3rd finger amp done in 2019. Reports several days worsening redness/drainage of that finger. No inciting event but does chew on her finger. Had some fever and chills. No recent abx. Came to ED 07/06, put on keflex then bactrim, then called back in due to (+) bcx for mRSA. Feeling ok, no pain in finger, OR planned. On iv vanc. Full ROS performed and neg except as noted above. [facility] Medical History Abnormal mammogram of right breast Abnormal mammogram of right breast Afib Alcohol use Anemia Anemia Anxiety Anxiety and depression Arthritis Atrial fibrillation Back pain Breast lump Burn injury of skin of finger Cardiology follow-up encounter Chronic cough COVID-19 vaccine series completed CPAP (continuous positive airway pressure) dependence CVA (cerebral vascular accident) Depression Depression with anxiety Diabetes Dietary restriction DKA (diabetic ketoacidoses) Essential hypertension Flu vaccine need Former smoker Health care maintenance High cholesterol History of echocardiogram History of edema History of stress test History of UTI HTN (hypertension) Hyperlipidemia Hypertension Irregular heartbeat Kidney disease Non-rheumatic mitral valve stenosis Nonrheumatic aortic (valve) stenosis Osteoarthritis Osteoporosis Overactive bladder Pancreatitis Paroxysmal atrial fibrillation Post-menopausal Preoperative evaluation to rule out surgical contraindication Sleep apnea Urinary incontinence, overflow Venous insufficiency Vision problems Walker as ambulation aid Weakness Home Medications ferrous sulfate 325 mg (65 mg iron) tablet 325 mg PO DAILY Supplement 01/27/21 [History Last Taken 07/08/22] ascorbic acid (vitamin C) 500 mg tablet (Vitamin C) 500 mg PO DAILY 08/21/21 [History Last Taken 07/08/22] acetaminophen 325 mg capsule 650 mg PO Q4H PRN Pain 12/02/21 [History Last Taken 07/08/22] cholecalciferol (vitamin D3) 50 mcg (2,000 unit) capsule 50 mcg PO DAILY [History Last Taken 07/08/22] denosumab 60 mg/mL subcutaneous syringe (Prolia) 60 mg subcut [id number] #1 mL 03/11/22 [Rx Last Taken Unknown] furosemide 40 mg tablet 40 mg PO DAILY Fluid retention #90 tabs 06/24/22 [Rx Last Taken 07/09/22] glimepiride 4 mg tablet 4 mg PO BID dm 3 months #180 tabs 06/24/22 [Rx Last Taken 07/09/22] losartan 50 mg tablet 50 mg PO BID bp #180 tabs 06/24/22 [Rx Last Taken 07/09/22] oxybutynin chloride 15 mg tablet,extended release 24 hr 15 mg PO BID bladder #180 tabs 06/24/22 [Rx Last Taken 07/09/22] sertraline 100 mg tablet (Zoloft) 100 mg PO DAILY anxiety #90 tabs 06/24/22 [Rx Last Taken 07/08/22] metoprolol tartrate 50 mg tablet 50 mg PO BID heart #180 tabs 06/28/22 [Rx Last Taken 07/09/22] warfarin 3 mg tablet 3 mg PO DAILY #30 tabs 07/01/22 [Rx Last Taken 07/09/22] metformin 1,000 mg tablet 1,000 mg PO BID DM #180 tabs 07/06/22 [Rx Last Taken 07/09/22] simvastatin 20 mg tablet 20 mg PO QHS cholesterol #90 tabs 07/06/22 [Rx Last Taken 07/08/22] amlodipine 10 mg tablet 10 mg PO DAILY BP 07/09/22 [History Last Taken 07/09/22] multivitamin 1 tab PO DAILY SUPPLEMENT 07/09/22 [History Last Taken 07/08/22] sulfamethoxazole 800 mg-trimethoprim 160 mg tablet 1 tab PO BID ANTIBIOTIC 07/09/22 [History Last Taken 07/09/22] Allergy/AdvReac Type Severity Reaction Status Date / Time fosinopril [From Monopril] Allergy Unknown unknown Verified 07/06/22 13:48 pioglitazone AdvReac Other Verified 07/06/22 13:48 Family History Father Diabetes Hypertension High cholesterol Heart disease Melanoma Surgical History History of back surgery History of carpal tunnel release History of hand surgery History of hysterectomy History of left elbow replacement History of surgical amputation of finger of right hand Hx of colonoscopy S/P hysterectomy S/P ORIF (open reduction internal fixation) fracture Social History household members: none Smoking Status: Former smoker how long ago did patient quit smokin years ago alcohol intake: current alcohol intake frequency: holidays/special occasions only substance use type: does not use what type of physical activity do you participate in: other details: aquasize Physical Exam Const alert, oriented x3 and no apparent distress General Appearance: cooperative HEENT normocephalic and head/scalp atraumatic Neck supple and No nodes Resp normal air movement and clear to auscultation bilaterally Cardio regular rate, regular rhythm and no murmurs GI soft to palpation, non-tender and non-distended Extremity General Extremity: Negative for edema Skin Skin Narrative: R 3rd finger wrapped s/p OR Lab / Micro Data Attestation: I reviewed the patient's lab results. Result Diagrams: 07/12/22 06:05 07/12/22 06:05 Labs: Laboratory Results - last 24 hr 07/11/22 16:25: Vancomycin Trough 11.6 07/11/22 17:07: POC Glucose 220 H 07/11/22 20:56: POC Glucose 71 L 07/12/22 06:05: PT 16.0 H, INR 1.3 07/12/22 06:05: WBC 6.8, RBC 3.64 L, Hgb 10.0 L, Hct 31.2 L, MCV 85.7, MCH 27.5, MCHC 32.1, RDW Std Deviation 46.0 H, RDW Coeff of Zee 14.7 H, Plt Count 254, MPV 10.2, Immature Gran % (Auto) 0.300, Neut % (Auto) 61.5, Lymph % (Auto) 28.7, [place] % (Auto) 4.9, Eos % (Auto) 4.0, Baso % (Auto) 0.6, Absolute Neuts (auto) 4.2, Absolute Lymphs (auto) 1.94, Nucleated RBC % 0 07/12/22 06:05: Sodium 141, Potassium 4.1, Chloride 111 H, Carbon Dioxide 25.0, Anion Gap 5, BUN 43 H, Creatinine 1.26 H, Estim Creat Clear Calc 31.35, Est GFR (MDRD) Af Amer 54 L, Est GFR (MDRD) Non-Af 45 L, BUN/Creatinine Ratio 34.1 H, Gl ucose 113 H, Calcium 9.1 07/12/22 06:16: POC Glucose 110 H 07/12/22 10:48: POC Glucose 285 H 07/12/22 11:55: POC Glucose 249 H Micro: Microbiology 07/09/22 16:21 Blood Culture (Wb) - Right Hand Blood Culture - Preliminary No growth in 48 hours. 07/09/22 15:43 Blood Culture (Wb) - Right Hand Blood Culture - Preliminary No growth in 48 hours.
[2022-07-12 16:30] LABS: Bedside Glucose 118 mg/dL (74-106)
[2022-07-12] MEDS: Vancomycin IV 1,000 MG/200 ML BAG 200 MG IV (16:46)
--- NOTE | 2022-07-12 19:43 | PCM.PN.HOSP ---
Reason for Visit Reason for Visit: Diagnoses Cellulitis of right finger (07/09/22) Local infection of the skin and subcutaneous tissue, unspecified (07/09/22) Acute kidney failure, unspecified (07/09/22) Bacteremia (07/09/22) Subjective Subjective Patient was seen and examined today, she underwent incision and drainage and excisional debridement of her right long finger amputation stump, she also underwent a partial ostectomy of the middle phalanx for osteomyelitis. Patient was seen by infectious diseases today, patient is currently on vancomycin. Patient's blood culture on 07/06/2022 grew out methicillin-resistant Staph aureus. Patient's echocardiogram did not show any vegetation. Objective Data Objective Data Vital Signs: Vital Signs Temp Pulse Resp BP Pulse Ox O2 Del Method O2 Flow Rate 98.1 F 70 18 156/70 H 93 Room Air 2 07/12/22 18:13 07/12/22 18:13 07/12/22 18:13 07/12/22 18:13 07/12/22 18:13 07/12/22 18:13 07/12/22 07:57 Oxygen Flow Rate (L/min) 2 Oxygen Delivery Method Room Air Weight: 84.9 kg Body Mass Index (BMI) 35.4 Intake & Output: Intake and Output for Last 24 Hours 07/10/22 07/11/22 07/12/22 23:59 23:59 23:59 Intake Total 3663.84 / 3663.84 1165 / 1165 1340 / 1340 Balance 3663.84 / 3663.84 1165 / 1165 1340 / 1340 Lab / Micro Data Result Diagrams: 07/12/22 06:05 07/12/22 06:05 Labs: Laboratory Results - last 24 hr 07/11/22 20:56: POC Glucose 71 L 07/12/22 06:05: PT 16.0 H, INR 1.3 07/12/22 06:05: WBC 6.8, RBC 3.64 L, Hgb 10.0 L, Hct 31.2 L, MCV 85.7, MCH 27.5, MCHC 32.1, RDW Std Deviation 46.0 H, RDW Coeff of Zee 14.7 H, Plt Count 254, MPV 10.2, Immature Gran % (Auto) 0.300, Neut % (Auto) 61.5, Lymph % (Auto) 28.7, [place] % (Auto) 4.9, Eos % (Auto) 4.0, Baso % (Auto) 0.6, Absolute Neuts (auto) 4.2, Absolute Lymphs (auto) 1.94, Nucleated RBC % 0 07/12/22 06:05: Sodium 141, Potassium 4.1, Chloride 111 H, Carbon Dioxide 25.0, Anion Gap 5, BUN 43 H, Creatinine 1.26 H, Estim Creat Clear Calc 31.35, Est GFR (MDRD) Af Amer 54 L, Est GFR (MDRD) Non-Af 45 L, BUN/Creatinine Ratio 34.1 H, Glucose 113 H, Calcium 9.1 07/12/22 06:16: POC Glucose 110 H 07/12/22 10:48: POC Glucose 285 H 07/12/22 11:55: POC Glucose 249 H 07/12/22 15:59: POC Glucose 118 H Micro: Microbiology 07/09/22 16:21 Blood Culture (Wb) - Right Hand Blood Culture - Preliminary No growth in 48 hours. 07/09/22 15:43 Blood Culture (Wb) - Right Hand Blood Culture - Preliminary No growth in 48 hours. Radiography Diagnostic Testing: Radiology Impression Echocardiogram 07/10/22 12:34 Interpretation Summary Normal LV size. Left ventricular systolic function is normal. The estimated ejection fraction is 60 %. Stage 2 diastolic dysfunction. There is moderate mitral annular calcification. Ordering Physician: Kisha Lopez Referring Physician: BERNIE SLOAN Performed By: Fabi Bonilla RDCS Physical Exam Const alert, oriented x3, no apparent distress and healthy appearing General Appearance: cooperative, well kempt and well developed Orientation / Consciousness: awake, oriented to person, oriented to place and oriented to time HEENT normocephalic, head/scalp atraumatic and moist oral mucous membranes Eyes PERRL, EOMs intact bilaterally and conjunctivae normal Neck supple, no JVD and thyroid normal General: trachea midline Resp normal respiratory effort, no retractions, no use of accessory muscles and clear to auscultation bilaterally Auscultation: Negative for rales, rhonchi or wheezes Cardio regular rate, regular rhythm, S1 normal heart sound, S2 normal heart sound, no murmurs, no rub and no gallops GI normal to inspection, nondistended, normoactive bowel sounds, soft to palpation, non-tender and non-distended Extremity Extremity Narrative: Patient's right hand is dressed with surgical dressing, this was not removed for examination Skin Skin Narrative: No rashes are noted at this time Neuro oriented x3, CN's II-XII intact bilaterally, no focal motor deficits and no sensory deficits noted Sensorium / Orientation: awake and alert Speech: speech normal Psych affect normal Assessment & Plan Assessment/Plan (1) Cellulitis of right middle finger: PLAN: Plan 1. Right middle finger stump infection with osteomyelitis-antibiotic coverage per ID, patient is currently on vancomycin #2 bacteremia secondary to #1-again ID is directing antibiotic coverage #3 paroxysmal L-gme-gilayss remains in sinus rhythm #4 cerebrovascular disease-patient is on a statin, she was on Coumadin which has been held due to her elevated INR #5 essential hypertension-patient will remain on amlodipine #6 hyperlipidemia-patient is on a statin #7 hypercoagulable state secondary to #3-patient's Coumadin is currently on hold due to her elevated INR and surgery today, I will restart her Coumadin. #8 type 2 diabetes-patient will remain on her present medication, sliding scale insulin will be used per fingerstick blood sugars #9 chronic anxiety-patient is on Zoloft Total clinical time spent by myself addressing patient's medical issues, reviewing all of her data, and collaborating with the patient's care team: 35 min Charges/Coding Visit Charges Inpatient E&M: 05417 Subs Hosp L2
[2022-07-12] MEDS: Atorvastatin Calcium 40 MG Tablet PO (20:42)
[2022-07-12] MEDS: Insulin Lispro 100 UNIT/ML INSULN.PEN SC (20:47)
[2022-07-12 21:45] LABS: Bedside Glucose 165 mg/dL (74-106)
[2022-07-13] VITALS (9 sets, daily range): BP systolic 134–159; BP diastolic 62–72; PULSE 56–71; RESP 16–20; TEMP 36.9–37.2; O2SAT 92–96
[2022-07-13] MEDS: Acetaminophen 325 MG Tablet 650 MG PO (03:33)
[2022-07-13 04:36] LABS: Hematocrit 33.8 % (37-47); Hemoglobin 10.3 g/dL (12.0-15.0); Mean Corp Hgb Conc 30.5 g/dL (32-36); Mean Corpuscular Hgb 27.1 pg (27.0-32.0); Mean Corpuscular Volume 88.9 fL (81-99); Mean Platelet Vol. 9.7 fl (6.2-12.0); Platelet Count 275 K/mm3 (150-450); RBC Distribution Width CV 14.6 % (11.6-14.6); RBC Distribution Width SD 47.3 fl (35.1-43.9); White Blood Count 11.5 K/mm3 (4.4-11.0)
[2022-07-13 04:57] LABS: Anion Gap 4 (5-15); BUN 33 mg/dL (7-18); BUN/Creat Ratio 25.2 RATIO (10-20); Calcium,Total 9.2 mg/dL (8.5-10.1); Chloride 107 mmol/L (98-107); Creatinine, Serum 1.31 mg/dL (0.55-1.02); EST Glomerular Filtration Rate 43 mL/min (>60); Est Glom Filt Rate - Afr Amer 52 mL/min (>60); Estimated Creatinine Clearance 30.15 ml/min; Glucose 122 mg/dL (74-106); Potassium 4.3 mmol/L (3.5-5.1); Sodium Level 138 mmol/L (136-145)
[2022-07-13] MEDS: Insulin Lispro 100 UNIT/ML INSULN.PEN SC ×4 (06:48→22:02)
[2022-07-13 07:11] LABS: Bedside Glucose 160 mg/dL (74-106)
[2022-07-13] MEDS: Cholecalciferol (VIT D3) 25 MCG TABLET (1,000 UNITS) 50 MCG PO (10:04)
[2022-07-13] MEDS: Ascorbic Acid 500 MG Tablet PO (10:04)
[2022-07-13] MEDS: Sertraline 100 MG Tablet PO (10:04)
[2022-07-13] MEDS: Juven (unflavored) Packet 1 PACKET PO (10:05)
[2022-07-13] MEDS: Tolterodine Tartrate 4 MG CAP.SA PO (10:05)
[2022-07-13] MEDS: amLODIPine 10 MG Tablet PO (10:05)
[2022-07-13] MEDS: Multivitamins,Therapeutic Tablet 1 TABLET PO (10:05)
[2022-07-13] MEDS: Ferrous Sulfate 325 MG Tablet PO (10:05)
[2022-07-13] MEDS: Metoprolol Tartrate 50 MG Tablet PO ×2 (10:05→22:10)
--- NOTE | 2022-07-13 10:30 | PCM.PN.ID ---
Physical Exam Narrative Finger is sore, no fever, no n/v/d, no new joint or back pain Const alert and no apparent distress General Appearance: cooperative Resp normal air movement and clear to auscultation bilaterally Cardio regular rate and regular rhythm GI soft to palpation, non-tender and non-distended Skin Skin Narrative: finger wrapped ID ID: Route of nutrition/ use of supplements: [] Nutritional Intake: [] IV Site: [] Butt Catheter: [] Assessment & Plan Assessment/Plan (1) Bacteremia: PLAN: MRSA bacteremia from R 3rd finger infection. Now s/p OR 07/[address] Wolff for I&D. On vanc. Will check repeat bcx and has pending echo. Will follow (2) Cellulitis of right middle finger:
[2022-07-13 12:20] LABS: Bedside Glucose 297 mg/dL (74-106)
[2022-07-13 13:56] LABS: Bedside Glucose 271 mg/dL (74-106)
--- NOTE | 2022-07-13 14:00 | WOUNDNOTE ---
wound photo: right long finger
--- NOTE | 2022-07-13 14:01 | WOUNDNOTE ---
wound photo: left lower leg
[2022-07-13 17:20] LABS: Bedside Glucose 182 mg/dL (74-106)
[2022-07-13] MEDS: 0.9% Saline Lock 10 ML Syringe IV (17:43)
[2022-07-13] MEDS: Vancomycin IV 1,000 MG/200 ML BAG 200 MG IV (17:44)
--- NOTE | 2022-07-13 19:10 | PCM.PN.HOSP ---
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 Patient will also remain on vancomycin, infectious diseases does not know if the patient will require IV antibiotics as an outpatient. A PICC line was inserted yesterday at the direction of plastic surgery. Objective Data Objective Data Vital Signs: Vital Signs Temp Pulse Resp BP Pulse Ox O2 Del Method O2 Flow Rate 98.4 F 62 18 134/68 H 96 Room Air 2 07/13/22 16:30 07/13/22 16:30 07/13/22 16:30 07/13/22 16:30 07/13/22 16:30 07/13/22 16:48 07/13/22 09:58 Oxygen Flow Rate (L/min) 2 Oxygen Delivery Method Room Air Weight: 84.9 kg Body Mass Index (BMI) 35.4 Intake & Output: Intake and Output for Last 24 Hours 07/11/22 07/12/22 07/13/22 23:59 23:59 23:59 Intake Total 1165 / 1165 1540 / 1540 250 / 250 Balance 1165 / 1165 1540 / 1540 250 / 250 Lab / Micro Data Result Diagrams: 07/13/22 04:25 07/13/22 04:25 Labs: Laboratory Results - last 24 hr 07/12/22 20:47: POC Glucose 165 H 07/13/22 04:25: WBC 11.5 H, RBC 3.80 L, Hgb 10.3 L, Hct 33.8 L, MCV 88.9, MCH 27.1, MCHC 30.5 L, RDW Std Deviation 47.3 H, RDW Coeff of Zee 14.6, Plt Count 275, MPV 9.7 07/13/22 04:25: Sodium 138, Potassium 4.3, Chloride 107, Carbon Dioxide 27.0, Anion Gap 4 L, BUN 33 H, Creatinine 1.31 H, Estim Creat Clear Calc 30.15, Est GFR (MDRD) Af Amer 52 L, Est GFR (MDRD) Non-Af 43 L, BUN/Creatinine Ratio 25.2 H, Glucose 122 H, Calcium 9.2 07/13/22 06:47: POC Glucose 160 H 07/13/22 11:59: POC Glucose 297 H 07/13/22 13:32: POC Glucose 271 H 07/13/22 17:00: POC Glucose 182 H Micro: Microbiology 07/12/22 13:40 Bone - Finger Gram Stain - Final 07/12/22 13:40 Bone - Finger Wound Culture - Preliminary Staphylococcus aureus 07/12/22 13:40 Tissue - Finger Gram Stain - Final 07/12/22 13:40 Tissue - Finger Wound Culture - Preliminary GNR non business control specialist 07/09/22 16:21 Blood Culture (Wb) - Right Hand Blood Culture - Preliminary No growth in 48 hours. 07/09/22 15:43 Blood Culture (Wb) - Right Hand Blood Culture - Preliminary No growth in 48 hours. Physical Exam Narrative alert, oriented x3, no apparent distress and healthy appearing General Appearance: cooperative, well kempt and well developed Orientation / Consciousness: awake, oriented to person, oriented to place and oriented to time HEENT normocephalic, head/scalp atraumatic and moist oral mucous membranes Eyes PERRL, EOMs intact bilaterally and conjunctivae normal Neck supple, no JVD and thyroid normal General: trachea midline Resp normal respiratory effort, no retractions, no use of accessory muscles and clear to auscultation bilaterally Auscultation: Negative for rales, rhonchi or wheezes Cardio regular rate, regular rhythm, S1 normal heart sound, S2 normal heart sound, no murmurs, no rub and no gallops GI normal to inspection, nondistended, normoactive bowel sounds, soft to palpation, non-tender and non-distended Extremity Extremity Narrative: Patient's right hand is dressed with surgical dressing, this was not removed for examination Skin Skin Narrative: No rashes are noted at this time Neuro oriented x3, CN's II-XII intact bilaterally, no focal motor deficits and no sensory deficits noted Sensorium / Orientation: awake and alert Speech: speech normal Psych affect normal Assessment & Plan Assessment/Plan (1) Osteomyelitis of finger of right hand: (2) Cellulitis of right middle finger: PLAN: Plan 1. Right middle finger stump infection with osteomyelitis methicillin-resistant Staph aureus and gram-negative nonlactose fermenting romeo-antibiotic coverage per ID, patient is now on vancomycin and Zosyn #2 bacteremia with MRSA secondary to #1-again ID is directing antibiotic coverage #3 paroxysmal B-yax-iukekzv remains in sinus rhythm, I will restart the patient's warfarin #4 cerebrovascular disease-patient is on a statin, I will place the patient on 81 mg aspirin daily #5 essential hypertension-patient will remain on amlodipine #6 hyperlipidemia-patient is on a statin #7 hypercoagulable state secondary to #3-patient's warfarin will be restarted today #8 type 2 diabetes-patient will remain on her present medication, sliding scale insulin will be used per fingerstick blood sugars #9 chronic anxiety-patient is on Zoloft Total clinical time spent by myself addressing patient's medical issues, reviewing all of her data, and collaborating with the patient's care team: 35 min Charges/Coding Visit Charges Inpatient E&M: 04390 Subs Hosp L2
--- NOTE | 2022-07-13 19:24 | PN.SURG_ITS ---
Subjective Subjective Postop #1 Patient is resting comfortably. Tolerated the Silver dressing change. Objective Data Objective Data Vital Signs: Vital Signs Temp Pulse Resp BP Pulse Ox O2 Del Method O2 Flow Rate 98.4 F 62 18 134/68 H 96 Room Air 2 07/13/22 16:30 07/13/22 16:30 07/13/22 16:30 07/13/22 16:30 07/13/22 16:30 07/13/22 16:48 07/13/22 09:58 Oxygen Flow Rate (L/min) 2 Oxygen Delivery Method Room Air Weight: 187 lb 2.759 oz Body Mass Index (BMI) 35.4 Intake & Output: Intake and Output for Last 24 Hours 07/11/22 07/12/22 07/13/22 23:59 23:59 23:59 Intake Total 1165 / 1165 1540 / 1540 250 / 250 Balance 1165 / 1165 1540 / 1540 250 / 250 Lab / Micro Data Attestation: I reviewed the patient's lab results. Result Diagrams: 07/13/22 04:25 07/13/22 04:25 Labs: Laboratory Results - last 24 hr 07/12/22 20:47: POC Glucose 165 H 07/13/22 04:25: WBC 11.5 H, RBC 3.80 L, Hgb 10.3 L, Hct 33.8 L, MCV 88.9, MCH 27.1, MCHC 30.5 L, RDW Std Deviation 47.3 H, RDW Coeff of Zee 14.6, Plt Count 275, MPV 9.7 07/13/22 04:25: Sodium 138, Potassium 4.3, Chloride 107, Carbon Dioxide 27.0, Anion Gap 4 L, BUN 33 H, Creatinine 1.31 H, Estim Creat Clear Calc 30.15, Est GFR (MDRD) Af Amer 52 L, Est GFR (MDRD) Non-Af 43 L, BUN/Creatinine Ratio 25.2 H , Glucose 122 H, Calcium 9.2 07/13/22 06:47: POC Glucose 160 H 07/13/22 11:59: POC Glucose 297 H 07/13/22 13:32: POC Glucose 271 H 07/13/22 17:00: POC Glucose 182 H Micro: Microbiology 07/12/22 13:40 Bone - Finger Gram Stain - Final 07/12/22 13:40 Bone - Finger Wound Culture - Preliminary Staphylococcus aureus 07/12/22 13:40 Tissue - Finger Gram Stain - Final 07/12/22 13:40 Tissue - Finger Wound Culture - Preliminary GNR non regulatory compliance engineer 07/09/22 16:21 Blood Culture (Wb) - Right Hand Blood Culture - Preliminary No growth in 48 hours. 07/09/22 15:43 Blood Culture (Wb) - Right Hand Blood Culture - Preliminary No growth in 48 hours. Physical Exam Narrative General - Alert and Oriented HEENT - PERRL. EOMI. Neck - Supple and nontender. Abdomen - Soft and nondistended. Extremities - Right long finger wound had some oozing. Controlled with gauze compression. Tolerated the Silver dressing change. Swelling slightly less. Redness has improved. Psych - Normal mood and affect. 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 No further evidence of infection. Swelling slightly better. Redness slightly better. Some oozing with the dressing change. Controlled with gauze compression. Tolerated the Silver dressing change. WBC 11.5. Increase from surgical procedure with irrigation of the wound. BUN/Creatinine has improved to 33/1.31. Operative culture thus far shows Staphylococcus aureus in the bone and Gram negative romeo non-regulatory compliance engineer in the soft tissue. Zosyn was added to the Vancomycin. Pathology is pending. Encourage nutritional supplementation to help the healing process. Will check a Prealbumin. After discharge, followup at the [facility]. If there is a plateau in the healing process, can proceed with delayed revision
[2022-07-13] MEDS: Atorvastatin Calcium 40 MG Tablet PO (21:50)
[2022-07-13] MEDS: MELATONIN 10 MG TABLET PO (22:10)
[2022-07-13 22:35] LABS: Bedside Glucose 158 mg/dL (74-106)
[2022-07-14] VITALS (11 sets, daily range): BP systolic 121–145; BP diastolic 54–78; PULSE 53–60; RESP 16–18; TEMP 36.5–36.9; O2SAT 92–98
[2022-07-14] MEDS: Insulin Lispro 100 UNIT/ML INSULN.PEN SC ×3 (06:30→21:16)
[2022-07-14 06:52] LABS: International Normalized Ratio 1.3; Prealbumin 13.3 mg/dL (20.0-40.0); Prothrombin Time (Protime)PT. 15.9 SECONDS (11.7-14.9)
[2022-07-14 07:06] LABS: Bedside Glucose 165 mg/dL (74-106)
[2022-07-14] MEDS: Multivitamins,Therapeutic Tablet 1 TABLET PO (09:00)
[2022-07-14] MEDS: Ferrous Sulfate 325 MG Tablet PO (09:00)
[2022-07-14] MEDS: Aspirin 81 MG TAB.CHEW PO (09:00)
[2022-07-14] MEDS: Ascorbic Acid 500 MG Tablet PO (09:01)
[2022-07-14] MEDS: Sertraline 100 MG Tablet PO (09:01)
[2022-07-14] MEDS: Cholecalciferol (VIT D3) 25 MCG TABLET (1,000 UNITS) 50 MCG PO (09:01)
[2022-07-14] MEDS: Metoprolol Tartrate 50 MG Tablet PO (09:01)
[2022-07-14] MEDS: amLODIPine 10 MG Tablet PO (09:01)
[2022-07-14] MEDS: Tolterodine Tartrate 4 MG CAP.SA PO (09:01)
[2022-07-14 11:41] LABS: Bedside Glucose 256 mg/dL (74-106)
--- NOTE | 2022-07-14 13:53 | PCM.PN.ID ---
Physical Exam Narrative Feeling ok, no pain in hand, no fever, no n/v/d Const alert and no apparent distress Resp normal air movement and clear to auscultation bilaterally Cardio regular rate and regular rhythm GI soft to palpation, non-tender and non-distended Skin Skin Narrative: finger wrapped ID ID: Route of nutrition/ use of supplements: [] Nutritional Intake: [] IV Site: [] Butt Catheter: [] Assessment & Plan Assessment/Plan (1) Bacteremia: PLAN: MRSA bacteremia from R 3rd finger infection. Now s/p OR 07/[address] Wolff for I&D. On vanc, zosyn added. TTE showed no veg. Surg cx with MRSA and enterobacter. Will write for 6 weeks iv vanc, stop date 08/23/22 with weekly labs. Will also need 10 days po cipro. Will follow. ID followup in 2 weeks. (2) Cellulitis of right middle finger:
--- NOTE | 2022-07-14 15:45 | PN.SURG_ITS ---
Subjective Subjective Postop #2 Patient is sitting up in bedside chair. States pain is well controlled. Tolerating dressing change well. Objective Data Objective Data Vital Signs: Vital Signs Temp Pulse Resp BP Pulse Ox O2 Del Method O2 Flow Rate 97.9 F 58 L 17 127/61 H 95 Room Air 3 07/14/22 15:23 07/14/22 15:23 07/14/22 15:23 07/14/22 15:23 07/14/22 15:23 07/14/22 15:23 07/14/22 07:59 Oxygen Flow Rate (L/min) 3 Oxygen Delivery Method Room Air Weight: 187 lb 2.759 oz Body Mass Index (BMI) 35.4 Intake & Output: Intake and Output for Last 24 Hours 07/12/22 07/13/22 07/14/22 23:59 23:59 23:59 Intake Total 1540 / 1540 750 / 1050 1350 / 1350 Output Total 500 / 500 Balance 1540 / 1540 750 / 1050 850 / 850 Lab / Micro Data Result Diagrams: 07/13/22 04:25 07/13/22 04:25 Labs: Laboratory Results - last 24 hr 07/13/22 17:00: POC Glucose 182 H 07/13/22 22:02: POC Glucose 158 H 07/14/22 05:59: PT 15.9 H, INR 1.3 07/14/22 05:59: Prealbumin 13.3 L 07/14/22 06:29: POC Glucose 165 H 07/14/22 11:10: POC Glucose 256 H Micro: Microbiology 07/12/22 13:40 Bone - Finger Gram Stain - Final 07/12/22 13:40 Bone - Finger Wound Culture - Preliminary Meth. resistant Staph. aureus Coag Negative Staph 07/12/22 13:40 Bone - Finger Anaerobic Culture - Preliminary Checking for anaerobes, further studies to follow. 07/12/22 13:40 Tissue - Finger Gram Stain - Final 07/12/22 13:40 Tissue - Finger Wound Culture - Preliminary Enterobacter cloacae complex Staphylococcus aureus 07/12/22 13:40 Tissue - Finger Anaerobic Culture - Preliminary Checking for anaerobes, further studies to follow. 07/09/22 16:21 Blood Culture (Wb) - Right Hand Blood Culture - Preliminary No growth in 48 hours. 07/09/22 15:43 Blood Culture (Wb) - Right Hand Blood Culture - Preliminary No growth in 48 hours. Physical Exam Narrative General - Alert and Oriented HEENT - PERRL. EOMI.? Neck - Supple and nontender. ? Abdomen - Soft and nondistended. Extremities - Right long finger wound had some oozing.? Controlled with gauze compression.? Tolerated the Silver dressing change.? Swelling slightly less.? Redness has improved. Psych - Normal mood and affect. 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 No further evidence of infection.? Swelling slightly better.? Redness slightly better.? Some oozing with the dressing change.? Controlled with gauze compression.? Tolerated the Silver dressing change. WBC 11.5 yesterday.? Increase from surgical procedure with irrigation of the wound. BUN/Creatinine has improved to 33/1.31. Preliminary operative culture shows MRSA and Coag Negative Staph in the bone and Enterobacter cloacae complex and Staphylococcus aureus in the soft tissue.?She is currently on IV Zosyn and Vancomycin. Also on Cipro po. ID is following. Pathology is pending. Prealbumin 13.3. Encourage nutritional supplementation to help the healing process.? After discharge, followup at the [facility]ound Center. If there is a plateau in the healing process, can proceed with delayed revision amputation. Charges/Coding Procedures Integumentary [id number]: [id number] Global Visit
--- NOTE | 2022-07-14 15:48 | CASEMGMT ---
CORNELIO ALMANZAR updated by ID that patient will be discharging on once daily IV Vanco. CORNELIO ALMANZAR in to discuss discharge planning. CORNELIO ALMANZAR discussed options of C with nursing teaching patient and friends how to complete antibiotics or coming to [facility] infusion center daily. Patient discussed options with friends and she has a friend Vaughn that can help learn IV antibiotics. Patient prefers [facility] and [facility] for providers. CORNELIO ALMANZAR sent referrals to [facility] and I. [facility] asked if friend could be at patient's home tomorrow at [phone], per mimi friend is not available tomorrow but is able to come Tuesday. CORNELIO ALMANZAR updated [facility]. Plan is for patient to discharg tomorrow after IV Vancomycin and have [facility] come Tuesday for start of care. Patient voiced understanding. CM will continue to follow this patient and plan for a safe discharge.
[2022-07-14 16:53] LABS: Vancomycin, Trough Level 13.8 ug/mL (5.0-15.0)
--- NOTE | 2022-07-14 17:22 | PCM.PN.HOSP ---
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 In addition they recommended 10 days of p.o. Cipro. Discharge planning is attempting to get this set up for the patient, a friend will come in tomorrow for training to help with the patient's home antibiotic administration. Objective Data Objective Data Vital Signs: Vital Signs Temp Pulse Resp BP Pulse Ox O2 Del Method O2 Flow Rate 97.9 F 58 L 17 127/61 H 95 Room Air 3 07/14/22 15:23 07/14/22 15:23 07/14/22 15:23 07/14/22 15:23 07/14/22 15:23 07/14/22 15:45 07/14/22 07:59 Oxygen Flow Rate (L/min) 3 Oxygen Delivery Method Room Air Weight: 84.9 kg Body Mass Index (BMI) 35.4 Intake & Output: Intake and Output for Last 24 Hours 07/12/22 07/13/22 07/14/22 23:59 23:59 23:59 Intake Total 1540 / 1540 750 / 1050 1850 / 1850 Output Total 500 / 500 Balance 1540 / 1540 750 / 1050 1350 / 1350 Lab / Micro Data Result Diagrams: 07/13/22 04:25 07/13/22 04:25 Labs: Laboratory Results - last 24 hr 07/13/22 22:02: POC Glucose 158 H 07/14/22 05:59: PT 15.9 H, INR 1.3 07/14/22 05:59: Prealbumin 13.3 L 07/14/22 06:29: POC Glucose 165 H 07/14/22 11:10: POC Glucose 256 H 07/14/22 16:10: Vancomycin Trough 13.8 Micro: Microbiology 07/12/22 13:40 Bone - Finger Gram Stain - Final 07/12/22 13:40 Bone - Finger Wound Culture - Preliminary Meth. resistant Staph. aureus Coag Negative Staph 07/12/22 13:40 Bone - Finger Anaerobic Culture - Preliminary Checking for anaerobes, further studies to follow. 07/12/22 13:40 Tissue - Finger Gram Stain - Final 07/12/22 13:40 Tissue - Finger Wound Culture - Preliminary Enterobacter cloacae complex Staphylococcus aureus 07/12/22 13:40 Tissue - Finger Anaerobic Culture - Preliminary Checking for anaerobes, further studies to follow. 07/09/22 16:21 Blood Culture (Wb) - Right Hand Blood Culture - Preliminary No growth in 48 hours. 07/09/22 15:43 Blood Culture (Wb) - Right Hand Blood Culture - Preliminary No growth in 48 hours. Physical Exam Narrative alert, oriented x3, no apparent distress and healthy appearing General Appearance: cooperative, well kempt and well developed Orientation / Consciousness: awake, oriented to person, oriented to place and oriented to time HEENT normocephalic, head/scalp atraumatic and moist oral mucous membranes Eyes PERRL, EOMs intact bilaterally and conjunctivae normal Neck supple, no JVD and thyroid normal General: trachea midline Resp normal respiratory effort, no retractions, no use of accessory muscles and clear to auscultation bilaterally Auscultation: Negative for rales, rhonchi or wheezes Cardio regular rate, regular rhythm, S1 normal heart sound, S2 normal heart sound, no murmurs, no rub and no gallops GI normal to inspection, nondistended, normoactive bowel sounds, soft to palpation, non-tender and non-distended Extremity Extremity Narrative: Patient's right hand is dressed with surgical dressing, this was not removed for examination Skin Skin Narrative: No rashes are noted at this time Neuro oriented x3, CN's II-XII intact bilaterally, no focal motor deficits and no sensory deficits noted Sensorium / Orientation: awake and alert Speech: speech normal Psych affect normal Assessment & Plan Assessment/Plan (1) Osteomyelitis of finger of right hand: PLAN: Plan 1. Right middle finger stump infection with osteomyelitis methicillin-resistant Staph aureus and gram-negative nonlactose fermenting romeo-antibiotic coverage per ID, patient is now on vancomycin and Zosyn, she will need outpatient IV vancomycin and Cipro orally #2 bacteremia with MRSA secondary to #1-again ID is directing antibiotic coverage #3 paroxysmal [id number] remains in sinus rhythm, she is on warfarin #4 cerebrovascular disease-patient is on a statin, I will place the patient on 81 mg aspirin daily #5 essential hypertension-patient will remain on amlodipine #6 hyperlipidemia-patient is on a statin #7 hypercoagulable state secondary to #3-patient is on warfarin #8 type 2 diabetes-patient will remain on her present medication, sliding scale insulin will be used per fingerstick blood sugars #9 chronic anxiety-patient is on Zoloft Total clinical time spent by myself addressing patient's medical issues, reviewing all of her data, and collaborating with the patient's care team: 35 min Charges/Coding Visit Charges Inpatient E&M: 37771 Subs Hosp L2
--- NOTE | 2022-07-14 17:26 | PCM.RX.CS ---
Consult Pharmacy has been consulted to manage selected antiobiotic: Vancomycin Type of Consult: Follow-up Labs: Sodium 138 mmol/L (136-145) 07/13/22 04:25 Potassium 4.3 mmol/L (3.5-5.1) 07/13/22 04:25 Chloride 107 mmol/L (98-107) 07/13/22 04:25 Carbon Dioxide 27.0 mmol/L (21.0-32.0) 07/13/22 04:25 Anion Gap 4 (5-15) L 07/13/22 04:25 BUN 33 mg/dL (7-18) H 07/13/22 04:25 Creatinine 1.31 mg/dL (0.55-1.02) H 07/13/22 04:25 Est GFR (MDRD) Af Amer 52 mL/min (>60) L 07/13/22 04:25 Est GFR (MDRD) Non-Af 43 mL/min (>60) L 07/13/22 04:25 BUN/Creatinine Ratio 25.2 RATIO (10-20) H 07/13/22 04:25 Glucose 122 mg/dL (74-106) H 07/13/22 04:25 Vancomycin Trough 13.8 ug/mL (5.0-15.0) 07/14/22 16:10 Microbiology: Microbiology 07/12/22 13:40 Bone - Finger Gram Stain - Final 07/12/22 13:40 Bone - Finger Wound Culture - Preliminary Meth. resistant Staph. aureus Coag Negative Staph 07/12/22 13:40 Bone - Finger Anaerobic Culture - Preliminary Checking for anaerobes, further studies to follow. 07/12/22 13:40 Tissue - Finger Gram Stain - Final 07/12/22 13:40 Tissue - Finger Wound Culture - Preliminary Enterobacter cloacae complex Staphylococcus aureus 07/12/22 13:40 Tissue - Finger Anaerobic Culture - Preliminary Checking for anaerobes, further studies to follow. 07/09/22 16:21 Blood Culture (Wb) - Right Hand Blood Culture - Preliminary No growth in 48 hours. 07/09/22 15:43 Blood Culture (Wb) - Right Hand Blood Culture - Preliminary No growth in 48 hours. Goal Trough: 15-20 mcg/mL Pharmacy Plan for Drug Dosing: VANCOMYCIN LEVEL RECEIVED Current Vancomycin Dose: 1000mg IV Q24h Number of Doses Received: 2 (of new regimen) Vancomycin Level: 13.8 Hours Since Last Dose: 22.5hr Renal Function: 1.31 Renal Function Trend: slight increase in SCr, but overall stable Lab/Micro: (+) MRSA Cultures Vancomycin Plan/Comments: Patient had a trough drawn which resulted in a value of 13.8 (Goal 15-20). Patients trough was drawn slightly early, so the trough is likely a little lower than the value obtained. Will increase the patient's dose slightly and recheck a trough in 2 doses to assess dosing. START vancomycin 1250mg IV Q24hr 07/14/22 @1800 Pending Level: 07/16/22 @1730, prior to 3rd dose of new regimen. Pharmacy Service will continue to monitor and adjust dosing as required.
[2022-07-14 17:30] LABS: Bedside Glucose 129 mg/dL (74-106)
[2022-07-14] MEDS: 0.9% Saline Lock 10 ML Syringe IV ×3 (17:43→21:17)
[2022-07-14] MEDS: Ciprofloxacin 500 MG Tablet PO (21:16)
[2022-07-14] MEDS: Atorvastatin Calcium 40 MG Tablet PO (21:16)
[2022-07-14] MEDS: MELATONIN 10 MG TABLET PO (21:30)
[2022-07-14] MEDS: Metoprolol Tartrate 25 MG Tablet PO (22:16)
[2022-07-14 22:25] LABS: Bedside Glucose 212 mg/dL (74-106)
[2022-07-15 03:41] VITALS: BP 166/67; PULSE 60; RESP 16; TEMP 36.8; O2SAT 94
[2022-07-15 05:50] LABS: International Normalized Ratio 1.4; Prothrombin Time (Protime)PT. 16.8 SECONDS (11.7-14.9)
[2022-07-15 07:40] LABS: Bedside Glucose 143 mg/dL (74-106)
[2022-07-15 08:15] VITALS: BP 126/58; PULSE 55; RESP 18; TEMP 36.6; O2SAT 95
[2022-07-15] MEDS: Ascorbic Acid 500 MG Tablet PO (08:16)
[2022-07-15] MEDS: Ferrous Sulfate 325 MG Tablet PO (08:16)
[2022-07-15] MEDS: Cholecalciferol (VIT D3) 25 MCG TABLET (1,000 UNITS) 50 MCG PO (08:17)
[2022-07-15] MEDS: Multivitamins,Therapeutic Tablet 1 TABLET PO (08:17)
[2022-07-15] MEDS: Ciprofloxacin 500 MG Tablet PO (08:17)
[2022-07-15] MEDS: Aspirin 81 MG TAB.CHEW PO (08:17)
[2022-07-15 08:18] VITALS: BP 126/58; PULSE 55
[2022-07-15] MEDS: Tolterodine Tartrate 4 MG CAP.SA PO (08:18)
[2022-07-15] MEDS: Sertraline 100 MG Tablet PO (08:18)
[2022-07-15] MEDS: amLODIPine 10 MG Tablet PO (08:18)
--- NOTE | 2022-07-15 10:04 | PCM.PN.ID ---
Physical Exam Narrative Sleeping this AM, d/c planned, no fever Const no apparent distress Resp normal air movement and clear to auscultation bilaterally Cardio regular rate and regular rhythm GI soft to palpation, non-tender and non-distended Skin Skin Narrative: finger wrapped ID ID: Route of nutrition/ use of supplements: [] Nutritional Intake: [] IV Site: [] Butt Catheter: [] Assessment & Plan Assessment/Plan (1) Bacteremia: PLAN: MRSA bacteremia from R 3rd finger infection. Now s/p OR 07/[address] Wolff for I&D. On vanc, cipro added. TTE showed no veg. Surg cx with MRSA and enterobacter. Will write for 6 weeks iv vanc, stop date 08/23/22 with weekly labs. Wrote for 10 days po cipro. Will follow. ID followup in 2 weeks. (2) Cellulitis of right middle finger:
--- NOTE | 2022-07-15 11:07 | DCINST_ITS ---
Discharge Instructions Diet Discharge Diet: 1800 Calorie Control Diet Activity Discharge Activity: Return to Normal Activity Weight Bearing Status: Full weight bearing Follow Up Care Test Results: Test results from this visit will be discussed in further detail at your follow- up appointment, if applicable. Discharge Plan Admission Admit Date/Time: 07/09/22 17:24 Primary Reason for Your Visit: osteomylitis Attending Provider: Guanaco Jasmine Primary Care Provider: Sulma Reagan Consulting Providers: Kiran Wolff ; Durga Guzman ; Reji Morocho ; Kisha Lopez Discharge Orders/Prescriptions Prescriptions: New vancomycin in dextrose 5 % 1 gram/200 mL Piggyback 1,000 mg IV Q24H 40 Days Qty: 8000 0RF Rx Instructions: stop date 08/23/22 dx: finger osteomyelitis weekly bmp, cbc, esr, and vanc trough. Fax to [phone] routine picc care per protocol ciprofloxacin HCl 500 mg Tablet 500 mg PO BID 10 Days Qty: 20 0RF warfarin [Jantoven] 2.5 mg Tablet 2.5 mg PO DINNER Qty: 30 0RF aspirin 81 mg Tablet,Chewable 81 mg PO BREAKFAST Qty: 0 0RF Continued acetaminophen 325 mg capsule 650 mg PO Q4H PRN (Reason: Pain) cholecalciferol (vitamin D3) 50 mcg (2,000 unit) capsule 50 mcg PO DAILY ferrous sulfate 325 mg (65 mg iron) tablet 325 mg PO DAILY ascorbic acid (vitamin C) [Vitamin C] 500 mg Tablet 500 mg PO DAILY multivitamin Tablet 1 tab PO DAILY amlodipine 10 mg tablet 10 mg PO DAILY Prolia 60 mg/mL syringe 60 mg subcut [id number] Qty: 1 1RF glimepiride 4 mg tablet 4 mg PO BID 90 Days Qty: 180 3RF losartan 50 mg tablet 50 mg PO BID Qty: 180 3RF oxybutynin chloride 15 mg tablet extended release 24hr 15 mg PO BID Qty: 180 1RF sertraline [Zoloft] 100 mg tablet 100 mg PO DAILY Qty: 90 0RF metoprolol tartrate 50 mg tablet 50 mg PO BID Qty: 180 1RF simvastatin 20 mg tablet 20 mg PO QHS Qty: 90 3RF metformin 1,000 mg tablet 1,000 mg PO BID Qty: 180 3RF Discontinued sulfamethoxazole-trimethoprim 800-160 mg tablet 1 tab PO BID furosemide 40 mg tablet 40 mg PO DAILY Qty: 90 0RF warfarin 3 mg tablet 3 mg PO DAILY Qty: 30 2RF Referrals / Follow Up: Sulma Reagan MD [Primary Care Provider] - See Referral Note (in one week for INR and visit) Kiran Wolff MD [Med Staff - Active Staff] - In 1 Week (call for appointment) Reji Morocho MD [Med Staff - Active Staff] - See Referral Note (in 2 weeks) Disposition Disposition (needs filled in before D/C Order can be placed): Home Health Service
[2022-07-15] MEDS: Insulin Lispro 100 UNIT/ML INSULN.PEN SC (11:48)
[2022-07-15 12:00] VITALS: O2SAT 95
--- NOTE | 2022-07-15 12:00 | CASEMGMT ---
CORNELIO ALMANZAR received call from Bella from [facility] and cost for IV vanco is $183.78, Liane to call patient to discuss finances. CORNELIO ALMANZAR called [facility] and they are able to see patient tomorrow at 12noon for start of care. CORNELIO ALMANZAR updated [facility] with planned start of care for 07/16/22 12noon. I to deliver medication to patient's home this evening. Patient updated regarding HHC and IV ATBs, patient voiced understanding and will have her 2 friends with her tomorrow for HHC visit. Patient had no further questions or concerns at this time.
--- NOTE | 2022-07-15 12:10 | DS.PCM_ITS ---
Providers Date of Admission: 07/09/22 Date of Discharge: 07/15/22 Primary Care Physician: Dr. Sulma Reagan MD Consultations 07/09/22 18:11 Consult: Plastic Surgery Routine Consulting Provider: Kiran Wolff Reason for Consult: right 3rd infected/abscess? EMERGENT Consult: No Notified: Yes Date Notified: 07/09/22 Time Notified: 18:11 Method of Notification: Verbal 07/10/22 12:35 Consult: Infectious Disease Routine Consulting Provider: Reji Morocho Reason for Consult: MRSA bacteremia EMERGENT Consult: No Notified: Yes Date Notified: 07/10/22 Time Notified: 12:36 Method of Notification: ED Physician Initiated 07/13/22 14:15 Consult: Onc/Wound/pull out operator Routine Comment: Reason for Consult:: right long finger Reason For Visit: FINGER WOUND,BACTEREMIA,CRISTIAN,LACTIC ACIDOSIS Diagnosis Discharge Diagnosis (1) Bacteremia: Status: Inactive Code(s): R78.81 - Bacteremia (2) Cellulitis of right middle finger: Status: Inactive Code(s): L03.011 - Cellulitis of right finger Plan 1. Right middle finger stump infection with osteomyelitis methicillin-resistant Staph aureus and gram-negative nonlactose fermenting romeo-antibiotic coverage per ID, patient is now on vancomycin and Zosyn, she will need outpatient IV vancomycin and Cipro orally #2 bacteremia with MRSA secondary to #1-again ID is directing antibiotic coverage #3 paroxysmal [id number] remains in sinus rhythm, she is on warfarin #4 cerebrovascular disease-patient is on a statin, I will place the patient on 81 mg aspirin daily #5 essential hypertension-patient will remain on amlodipine #6 hyperlipidemia-patient is on a statin #7 hypercoagulable state secondary to #3-patient is on warfarin #8 type 2 diabetes-patient will remain on her present medication, sliding scale insulin will be used per fingerstick blood sugars #9 chronic anxiety-patient is on Zoloft Total clinical time spent by myself addressing patient's medical issues, reviewing all of her data, and collaborating with the patient's care team: 35 min Medications at Discharge Home Medications ferrous sulfate 325 mg (65 mg iron) tablet 325 mg PO DAILY Supplement 01/27/21 ascorbic acid (vitamin C) 500 mg tablet (Vitamin C) 500 mg PO DAILY vitamin 08/21/21 acetaminophen 325 mg capsule 650 mg PO Q4H PRN Pain 12/02/21 cholecalciferol (vitamin D3) 50 mcg (2,000 unit) capsule 50 mcg PO DAILY vitamin 03/03/22 denosumab 60 mg/mL subcutaneous syringe (Prolia) 60 mg subcut [id number] #1 mL 03/11/22 glimepiride 4 mg tablet 4 mg PO BID dm 3 months #180 tabs 06/24/22 losartan 50 mg tablet 50 mg PO BID bp #180 tabs 06/24/22 oxybutynin chloride 15 mg tablet,extended release 24 hr 15 mg PO BID bladder #180 tabs 06/24/22 sertraline 100 mg tablet (Zoloft) 100 mg PO DAILY anxiety #90 tabs 06/24/22 metoprolol tartrate 50 mg tablet 50 mg PO BID heart #180 tabs 06/28/22 metformin 1,000 mg tablet 1,000 mg PO BID DM #180 tabs 07/06/22 simvastatin 20 mg tablet 20 mg PO QHS cholesterol #90 tabs 07/06/22 amlodipine 10 mg tablet 10 mg PO DAILY BP 07/09/22 multivitamin 1 tab PO DAILY SUPPLEMENT 07/09/22 ciprofloxacin HCl 500 mg tablet 500 mg PO BID 10 days #20 tabs 07/14/22 vancomycin 1 gram/200 mL in dextrose 5 % intravenous piggyback 1,000 mg IV Q24H 40 days #8,000 mL 07/14/22 aspirin 81 mg chewable tablet 81 mg PO BREAKFAST #0 tabs 07/15/22 warfarin 2.5 mg tablet (Jantoven) 2.5 mg PO DINNER #30 tabs 07/15/22 Hospital Course Operations - (Surgical preparation of the right long finger amputation stump ulcer with incision and drainage and aches patient with debridement) Procedures None Summary of Care Provided Minutes Spent on Discharge: 31 Hospital Course: This 72-year-old white female was seen in the emergency room at [facility] for redness and drainage of a right third finger amputation stump site and positive MRSA blood cultures. She was seen in the emergency room 3 days prior and sent home on Keflex but the wound culture came back positive for MRSA and the prescription was changed from Keflex to Bactrim, the morning she was seen in the ER this admission, her blood culture was positive for Staph aureus and she was called to the ED for evaluation. Blood work showed a normal white blood cell count, patient's creatinine was elevated at 2.33 and BUN was 68 patient's blood sugar was 167. 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 Patient was admitted to PCU, she was started on IV antibiotics and seen in consultation by infectious diseases and plastic surgery, plastic surgery took the patient for surgery for debridement of the area, patient's wound culture was positive for Enterobacter cloacae and methicillin-resistant Staph aureus and her antibiotics were adjusted. Arrangement was made for the patient to receive outpatient IV antibiotic treatment, a midline was inserted. On 07/15/2022, patient was seen and examined: On examination she appeared in good health and spirits, she does not appear to be in any distress. Vital signs as documented. Skin warm and dry and without overt rashes. Neck without JVD, thyroid appears normal, trachea is midline, neck is supple. Lungs clear, normal air movement was noted. Heart exam notable for regular rhythm, normal sounds and absence of murmurs, rubs or gallops. Abdomen unremarkable and without evidence of organomegaly, masses, or abdominal aortic enlargement, bowel sounds are present in all 4 quadrants, no abdominal tenderness was noted. Neuro: Cranial nerves II through XII are grossly intact, no focal motor deficits were noted, sensation to light touch and pinprick is intact, motor exam 5/5 throughout. Psych: Patient is alert and oriented x3, she does not appear anxious or depressed, she does not appear agitated. Patient was discharged in stable condition home on 07/15/2022. Weight / BMI Weight Weight: 84.9 kg Body Mass Index (BMI) 35.4 ABG / Lab / Microbiology Data Result Diagrams: 07/13/22 04:25 07/13/22 04:25 Laboratory: Laboratory Results - last 24 hr 07/14/22 16:10: Vancomycin Trough 13.8 07/14/22 17:10: POC Glucose 129 H 07/14/22 21:14: POC Glucose 212 H 07/15/22 04:34: PT 16.8 H, INR 1.4 07/15/22 06:35: POC Glucose 143 H Microbiology: Microbiology 07/13/22 10:45 Blood Culture (Wb) - Anticubital Right Blood Culture - Preliminary No growth in 48 hours. 07/09/22 16:21 Blood Culture (Wb) - Right Hand Blood Culture - Final No growth in 5 days. 07/09/22 15:43 Blood Culture (Wb) - Right Hand Blood Culture - Final No growth in 5 days. 07/12/22 13:40 Tissue - Finger Gram Stain - Final 07/12/22 13:40 Tissue - Finger Wound Culture - Final Enterobacter cloacae complex Meth. resistant Staph. aureus 07/12/22 13:40 Tissue - Finger Anaerobic Culture - Preliminary Checking for anaerobes, further studies to follow. 07/12/22 13:40 Bone - Finger Gram Stain - Final 07/12/22 13:40 Bone - Finger Wound Culture - Final Meth. resistant Staph. aureus Staphylococcus epidermidis 07/12/22 13:40 Bone - Finger Anaerobic Culture - Preliminary Checking for anaerobes, further studies to follow. D/C Instructions Discharge Diet: 1800 Calorie Control Diet Weight Bearing Status: Full weight bearing Meaningful Use Info Meaningful Use Diagnoses (Choose all that apply): None applicable Discharge Plan Admission Admit Date/Time: 07/09/22 17:24 Primary Reason for Your Visit: osteomylitis Attending Provider: Guanaco Jasmine Primary Care Provider: Sulma Reagan Consulting Providers: Kiran Wolff ; Durga Guzman ; Reji Morocho ; Kisha Lopez Discharge Orders/Prescriptions Prescriptions: New vancomycin in dextrose 5 % 1 gram/200 mL Piggyback 1,000 mg IV Q24H 40 Days Qty: 8000 0RF Rx Instructions: stop date 08/23/22 dx: finger osteomyelitis weekly bmp, cbc, esr, and vanc trough. Fax to [phone] routine picc care per protocol ciprofloxacin HCl 500 mg Tablet 500 mg PO BID 10 Days Qty: 20 0RF warfarin [Jantoven] 2.5 mg Tablet 2.5 mg PO DINNER Qty: 30 0RF aspirin 81 mg Tablet,Chewable 81 mg PO BREAKFAST Qty: 0 0RF Continued acetaminophen 325 mg capsule 650 mg PO Q4H PRN (Reason: Pain) cholecalciferol (vitamin D3) 50 mcg (2,000 unit) capsule 50 mcg PO DAILY ferrous sulfate 325 mg (65 mg iron) tablet 325 mg PO DAILY ascorbic acid (vitamin C) [Vitamin C] 500 mg Tablet 500 mg PO DAILY multivitamin Tablet 1 tab PO DAILY amlodipine 10 mg tablet 10 mg PO DAILY Prolia 60 mg/mL syringe 60 mg subcut [id number] Qty: 1 1RF glimepiride 4 mg tablet 4 mg PO BID 90 Days Qty: 180 3RF losartan 50 mg tablet 50 mg PO BID Qty: 180 3RF oxybutynin chloride 15 mg tablet extended release 24hr 15 mg PO BID Qty: 180 1RF sertraline [Zoloft] 100 mg tablet 100 mg PO DAILY Qty: 90 0RF metoprolol tartrate 50 mg tablet 50 mg PO BID Qty: 180 1RF simvastatin 20 mg tablet 20 mg PO QHS Qty: 90 3RF metformin 1,000 mg tablet 1,000 mg PO BID Qty: 180 3RF Discontinued sulfamethoxazole-trimethoprim 800-160 mg tablet 1 tab PO BID furosemide 40 mg tablet 40 mg PO DAILY Qty: 90 0RF warfarin 3 mg tablet 3 mg PO DAILY Qty: 30 2RF Referrals / Follow Up: Reji Morocho MD [Med Staff - Active Staff] - See Referral Note (Please call office to schedule an appt in 2 weeks. ) Guanaco Mckeon NP ORDER SCHEDULE CLERKJuan ManuelC [Med Staff - Adv Practice Prof] - 07/22/22 10:00 am Génesis Patel NP, NP-C [Med Staff - Adv Practice Prof] - 07/19/22 1:00 pm Disposition Disposition (needs filled in before D/C Order can be placed): Home Health Ser vice Charges/Coding Visit Charges Inpatient E&M: 13626 Disch Hosp >30min
[2022-07-15 12:31] LABS: Bedside Glucose 247 mg/dL (74-106)
[2022-07-15 13:51] VITALS: BP 126/58; PULSE 55; RESP 18; TEMP 36.6; O2SAT 95
--- NOTE | 2022-07-15 15:24 | PHA.DC.MR ---
Pharmacy Service has performed discharge medication reconciliation for this patient. Patient has difficulty with information per team, no family/friends in room to explain medications with her/family. Will check back later to try and perform counseling. Home Medications ferrous sulfate 325 mg (65 mg iron) tablet 325 mg PO DAILY Supplement 01/27/21 ascorbic acid (vitamin C) 500 mg tablet (Vitamin C) 500 mg PO DAILY vitamin 08/21/21 acetaminophen 325 mg capsule 650 mg PO Q4H PRN Pain 12/02/21 cholecalciferol (vitamin D3) 50 mcg (2,000 unit) capsule 50 mcg PO DAILY vitamin 03/03/22 denosumab 60 mg/mL subcutaneous syringe (Prolia) 60 mg subcut [id number] #1 mL 03/11/22 glimepiride 4 mg tablet 4 mg PO BID dm 3 months #180 tabs 06/24/22 losartan 50 mg tablet 50 mg PO BID bp #180 tabs 06/24/22 oxybutynin chloride 15 mg tablet,extended release 24 hr 15 mg PO BID bladder #180 tabs 06/24/22 sertraline 100 mg tablet (Zoloft) 100 mg PO DAILY anxiety #90 tabs 06/24/22 metoprolol tartrate 50 mg tablet 50 mg PO BID heart #180 tabs 06/28/22 metformin 1,000 mg tablet 1,000 mg PO BID DM #180 tabs 07/06/22 simvastatin 20 mg tablet 20 mg PO QHS cholesterol #90 tabs 07/06/22 amlodipine 10 mg tablet 10 mg PO DAILY BP 07/09/22 multivitamin 1 tab PO DAILY SUPPLEMENT 07/09/22 ciprofloxacin HCl 500 mg tablet 500 mg PO BID 10 days #20 tabs 07/14/22 vancomycin 1 gram/200 mL in dextrose 5 % intravenous piggyback 1,000 mg IV Q24H 40 days #8,000 mL 07/14/22 aspirin 81 mg chewable tablet 81 mg PO BREAKFAST #0 tabs 07/15/22 warfarin 2.5 mg tablet (Jantoven) 2.5 mg PO DINNER #30 tabs 07/15/22 The patient's discharge medication list was reviewed for discrepancies and discrepancies were resolved.
== END 2022-07-15 17:35 | disposition home health service (06) | DRG 516 ==
LOC: ED 17:23 → PCU 18:50
PROVIDERS: Student in an Organized Health Care Education/Training Program; Surgery; Admitting Provider Internal Medicine; Emergency Provider Emergency Medicine; PCP Internal Medicine; Visit Provider Internal Medicine
PROC: 0PBT0ZZ Excision of Right Finger Phalanx, Open Approach (ICD-10-PCS; principal; 2022-07-12 12:35)
DX: T87.41 Infection of amputation stump, right upper extremity (principal); M86.141 Other acute osteomyelitis, right hand; R78.81 Bacteremia; D68.59 Other primary thrombophilia; E87.20 Acidosis, unspecified; E87.1 Hypo-osmolality and hyponatremia; N17.9 Acute kidney failure, unspecified; I13.0 Hypertensive heart and chronic kidney disease with heart failure and stage 1 through stage 4 chronic kidney disease, or unspecified chronic kidney disease; I50.32 Chronic diastolic (congestive) heart failure; L98.496 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 without evidence of necrosis; L02.511 Cutaneous abscess of right hand; D63.1 Anemia in chronic kidney disease; I27.20 Pulmonary hypertension, unspecified; E11.22 Type 2 diabetes mellitus with diabetic chronic kidney disease; I48.0 Paroxysmal atrial fibrillation; N18.31 Chronic kidney disease, stage 3a; E11.69 Type 2 diabetes mellitus with other specified complication; E78.00 Pure hypercholesterolemia, unspecified; F41.9 Anxiety disorder, unspecified; Z89.021 Acquired absence of right finger(s); L03.011 Cellulitis of right finger; B95.62 Methicillin resistant Staphylococcus aureus infection as the cause of diseases classified elsewhere; B95.2 Enterococcus as the cause of diseases classified elsewhere; R33.9 Retention of urine, unspecified; X58.XXXA Exposure to other specified factors, initial encounter; Z79.2 Long term (current) use of antibiotics; Z79.01 Long term (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; Z79.82 Long term (current) use of aspirin; Z79.84 Long term (current) use of oral hypoglycemic drugs; Z79.899 Other long term (current) drug therapy; Z86.73 Personal history of transient ischemic attack (TIA), and cerebral infarction without residual deficits; Z87.891 Personal history of nicotine dependence
CPT/HCPCS: 36415; 36569; 73130; 73218; 80048; 80202; 82962; 83036; 83605; 83735; 84100; 84134; 84443; 85025; 85027; 85610; 87040; 87070; 87075; 87077; 87102; 87149; 87176; 87186; 87205; 87206; 88304; 88305; 88307; 88311; 93005; 93306; 94668; 96365; 97110; 97161; 97165; 97530; 97535; 99252; 99282; 99285; J7030; J7040; J7050; J7120; A4216; G0463; J0295; J2405; J3490

== ENCOUNTER → 2022-07-16 | Outpatient (CLI) | payer MEDICARE, SELFPAY ==
[2022-07-16] MEDS: 0.9% NaCl PICC Flush IV (14:11)
== END | disposition home or self-care (01) ==
LOC: MEDOUTP 14:00
PROVIDERS: PCP Internal Medicine; Referring Provider Internal Medicine Infectious Disease; Visit Provider Internal Medicine Infectious Disease
DX: A49.02 Methicillin resistant Staphylococcus aureus infection, unspecified site (principal); M86.9 Osteomyelitis, unspecified
CPT/HCPCS: 96372; 96365; 96523; A4216

== ENCOUNTER → 2022-07-27 | Outpatient (CLI) | payer MEDICARE, SELFPAY ==
[2022-07-27 12:35] LABS: International Normalized Ratio 2.2; Prothrombin Time (Protime)PT. 23.9 SECONDS (11.7-14.9)
== END | disposition home or self-care (01) ==
LOC: LAB 09:39
PROVIDERS: PCP Internal Medicine; Visit Provider Nurse Practitioner Family
DX: I63.9 Cerebral infarction, unspecified (principal); Z79.01 Long term (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
CPT/HCPCS: 36415; 85610

== ENCOUNTER 2022-08-02 14:30 | Outpatient (RCR) | payer MEDICARE, SELFPAY ==
[2022-07-19 13:32] VITALS: BP 154/67; PULSE 16; RESP 16; TEMP 36.2; BMI 34.9
--- NOTE | 2022-07-19 13:42 | WC ---
PT STATES NO MED CHANGES SINCE WAS IN HOSPITAL FOR SURGERY. CONT'S ON IV VANC
--- NOTE | 2022-07-19 15:41 | HP.PCM_ITS ---
History of Present Illness Date of Service: 07/19/22 Chief Complaint: Right long finger ulcer History of Wound: This 72-year-old white female was seen in the emergency room at [facility] for redness and drainage of a right third finger amputation stump site and positive MRSA blood cultures. She was seen in the emergency room 3 days prior and sent home on Keflex but the wound culture came back positive for MRSA and the prescription was changed from Keflex to Bactrim, the morning she was seen in the ER this admission, her blood culture was positive for Staph aureus and she was called to the ED for evaluation. Blood work showed a normal white blood cell count, patient's creatinine was elevated at 2.33 and BUN was 68 patient's blood sugar was 167. 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 Patient was admitted to PCU for a nonhealing amputation stump MRSA ulcer with exposed bone suspicious for os teomyelitis and started on IV antibiotics. She has diabetes mellitus and is at risk for worsening infection that may extend to other parts of the hand which may lead to stiffness and difficulty with range of motion. Surgery 07/12/22 - Surgical preparation right long finger amputation stump ulcer with incision and drainage and excisional debridement MRSA abscess and partial ostectomy middle phalanx for osteomyelitis. Operative tissue cultures positive for Enterobacter cloacae complex and MRSA. Operative bone cultures positive for MRSA and MRSE. She was discharged home on 07/15/22 with a PICC line and IV Vancomycin and oral Cipro. She was seen by ID while hospitalized and is to follow up with him in 2 weeks. She has home health and friends to help with the IV antibiotics and dressing changes. Today she denies fever, chills, nausea or vomiting. Progress of Wound: Right long finger ulcer is improving. There still is bone exposure She is tolerating dressing changes well. [facility] Medical History Abnormal mammogram of right breast Abnormal mammogram of right breast Abscess of right middle finger Acute kidney injury Afib Alcohol use Anemia Anemia Anxiety Anxiety and depression Arthritis Atrial fibrillation Back pain Bacteremia Breast lump Burn injury of skin of finger Cardiology follow-up encounter Chronic cough COVID-19 vaccine series completed CPAP (continuous positive airway pressure) dependence CVA (cerebral vascular accident) Depression Depression with anxiety Diabetes Dietary restriction DKA (diabetic ketoacidoses) Essential hypertension Finger infection Flu vaccine need Former smoker Health care maintenance High cholesterol History of echocardiogram History of edema History of stress test History of UTI HTN (hypertension) Hyperlipidemia Hypertension Irregular heartbeat Kidney disease senior care (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 MRSA infection 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 without evidence of necrosis Non-rheumatic mitral valve stenosis Nonrheumatic aortic (valve) stenosis Osteoarthritis Osteomyelitis of finger of right hand Osteoporosis Overactive bladder Pancreatitis Paroxysmal atrial fibrillation Post-menopausal Preoperative evaluation to rule out surgical contraindication Sleep apnea Urinary incontinence, overflow Venous insufficiency Vision problems Walker as ambulation aid Weakness Home Medications ferrous sulfate 325 mg (65 mg iron) tablet 325 mg PO DAILY Supplement 01/27/21 [History Last Taken 07/08/22] ascorbic acid (vitamin C) 500 mg tablet (Vitamin C) 500 mg PO DAILY vitamin 08/21/21 [History Last Taken 07/08/22] acetaminophen 325 mg capsule 650 mg PO Q4H PRN Pain 12/02/21 [History Last Taken 07/08/22] cholecalciferol (vitamin D3) 50 mcg (2,000 unit) capsule 50 mcg PO DAILY vitamin 03/03/22 [History Last Taken 07/08/22] denosumab 60 mg/mL subcutaneous syringe (Prolia) 60 mg subcut [id number] #1 mL 03/11/22 [Rx Last Taken Unknown] glimepiride 4 mg tablet 4 mg PO BID dm 3 months #180 tabs 06/24/22 [Rx Last Taken 07/09/22] losartan 50 mg tablet 50 mg PO BID bp #180 tabs 06/24/22 [Rx Last Taken 07/09/22] oxybutynin chloride 15 mg tablet,extended release 24 hr 15 mg PO BID bladder #180 tabs 06/24/22 [Rx Last Taken 07/09/22] sertraline 100 mg tablet (Zoloft) 100 mg PO DAILY anxiety #90 tabs 06/24/22 [Rx Last Taken 07/08/22] metoprolol tartrate 50 mg tablet 50 mg PO BID heart #180 tabs 06/28/22 [Rx Last Taken 07/09/22] metformin 1,000 mg tablet 1,000 mg PO BID DM #180 tabs 07/06/22 [Rx Last Taken 07/09/22] simvastatin 20 mg tablet 20 mg PO QHS cholesterol #90 tabs 07/06/22 [Rx Last Taken 07/08/22] amlodipine 10 mg tablet 10 mg PO DAILY BP 07/09/22 [History Last Taken 07/09/22] multivitamin 1 tab PO DAILY SUPPLEMENT 07/09/22 [History Last Taken 07/08/22] ciprofloxacin HCl 500 mg tablet 500 mg PO BID 10 days #20 tabs 07/14/22 [Rx Last Taken Unknown] vancomycin 1 gram/200 mL in dextrose 5 % intravenous piggyback 1,000 mg IV Q24H 40 days #8,000 mL 07/14/22 [Rx Last Taken Unknown] aspirin 81 mg chewable tablet 81 mg PO BREAKFAST #0 tabs 07/15/22 [Rx Last Taken Unknown] warfarin 2.5 mg tablet (Jantoven) 2.5 mg PO DINNER #30 tabs 07/15/22 [Rx Last Taken Unknown] Allergy/AdvReac Type Severity Reaction Status Date / Time fosinopril [From Monopril] Allergy Unknown unknown Verified 07/22/22 10:13 pioglitazone AdvReac Other Verified 07/22/22 10:13 Family History Father Diabetes Hypertension High cholesterol Heart disease Melanoma Surgical History History of back surgery History of carpal tunnel release History of hand surgery History of hysterectomy History of left elbow replacement History of surgical amputation of finger of right hand Hx of colonoscopy S/P hysterectomy S/P ORIF (open reduction internal fixation) fracture Status post surgical amputation of finger of right hand Social History household members: none Smoking Status: Never smoker how long ago did patient quit smokin years ago alcohol intake: current alcohol intake frequency: holidays/special occasions only substance use type: does not use what type of physical activity do you participate in: other details: aquasize ROS Constitutional Constitutional: Denies chills or fever(s) Eyes Eyes: Reports none ENT HEENT: Reports none Cardiovascular Cardiovascular: Denies chest pain or dyspnea Respiratory/Chest Respiratory/Chest: Denies cough or dyspnea Gastrointestinal Gastrointestinal: Denies diarrhea, nausea or vomiting Musculoskeletal Musculoskeletal: Reports joint stiffness and joint swelling Integumentary Integumentary: Reports wounds Neurologic Neurologic: Reports none Psychiatric Psychiatric: Reports none Endocrine Endocrinology: Reports none Vital Signs Vital Signs Vital Signs: 07/19/22 13:32 Temperature 97.2 F L Temperature Source Temporal Pulse Rate 16 L Respiratory Rate 16 Blood Pressure 154/67 H Blood Pressure Mean 96 Blood Pressure Source Monitor Blood Pressure Position Sitting Blood Pressure Location Right Arm Oxygen Delivery Method Room Air Weight Weight: 185 lb Body Mass Index (BMI) 34.9 Physical Exam Const alert, oriented x3 and no apparent distress General Appearance: cooperative HEENT normocephalic Head and Scalp: atraumatic Eyes General Eye: normal appearance of both eyes Neck full ROM Lymph Lymphatic: no lymphedema noted Resp normal respiratory effort, normal air movement and clear to auscultation bilaterally Cardio regular rate and regular rhythm GI soft to palpation and non-tender Back/Spine normal ROM Extremity full ROM and normal capillary refill Skin Wound Narrative: Right long finger stump ulcer is beefy pink. There is bone exposure. Neuro oriented x3 and moves all extremities Psych mental status grossly normal, cooperative and affect normal Debridement Note Debridement Note Wound debrided: long finger stump ulcer Laterality: Right Type of Debridement: Excisional debridement Anesthesia Used: 5% Lidocaine Gel Depth: Down to and including healthy tissue, in the subcutaneous layer and to muscle Percentage of wound debrided: 100 Instrument Used: 3mm curette Tissue Removed: Devitalized tissue and slough into muscle with bone exposure Severity: Fat Layer Exposed Amount of bleeding with debridement: Mild Bleeding Controlled with: Pressure and Compression and gauze Patient tolerated procedure: Patient tolerated procedure well Post-Debridement Measurements and Additional Note: Post-Debridement Measurements/Treatment - Nurse 1 - General Ulcer Assessment Start: 07/19/22 13:32 Freq: Status: Active Protocol: DENG Activity Type Activity Date Activity User E-sign Co-sign Detail Recorded Client Recorded Date Recorded By Document 07/19/22 13:32 [facility] [id number] 07/19/22 13:39 [facility] 07/19/22 13:32 - Today's Visit Information Type of service Initial Visit Arrival Mode Ambulatory, Walker Transfer Assistance None Patient Identification Verified (Name & Yes ) Patient Requires Transmission-Based No Precautions Height and Weight Height 5 ft 1 in Weight 185 lb Weight in Pounds 185.0 lbs Weight Measurement Method Stated by Patient Body Mass Index (BMI) 34.9 BMI Classification Obese BSA - Florina 1.83 Vital Signs Temperature (97.8 F-99.1 F) 97.2 F L Temperature Source Temporal Pulse Rate (60-100) 16 L Pulse Location Monitor Respiratory Rate (12-18) 16 Respiratory rate source Observation Oxygen Delivery Method Room Air Blood Pressure (90/60-120/80) 154/67 H Blood Pressure Mean 96 Source Monitor Position Sitting Blood Pressure Location Right Arm History Since Last Visit- (Skip if this is Patient's initial visit) Left Footwear Regular Shoe Right Footwear Regular Shoe Pain Scale: 0-10 Numeric Is Patient Pain Free? Yes Communication Assessment Preferred language Lithuanian Manager Of Tax Required No Able to Read Yes Able to Write No: has difficulty Communication Tools None Right Hearing Abillity Hard of Hearing Left Hearing Abillity Hard of Hearing Visual Assistive Devices Glasses Teaching Assessment Preferences Verbal,Written, Audio/Visual, Demonstration Barriers to Learning Hearing Impairment Readiness To Learn Excellent Willingness to Engage in Self Management High Activies Readiness to Engage in Self Management High Activities Anxiety Level Calm Cooperation Cooperative Perception Coherent Interest in Health Problem Asks Questions Education Importance Acknowledges Need Does Patient Smoke tobacco or other No substances Smoking Status Never smoker Is Patient Diabetic Yes Functional Assessment Recent Decline in Ability to Perform Denies Any Declines Culture/Restorationism/Drum Handler Cultural/Restorationism Needs that may affect No Treatment Plan Teaching: Wound Center *Welcome to the Wound Center -Person Taught Patient,Family -Teaching Method Discussion -Response to teaching Verbalize understanding Welcome to the Wound Care Center English PACE - Nurse 1 - General Ulcer Measurement Start: 07/19/22 13:32 Freq: Status: Active Protocol: Activity Type Activity Date Activity User E-sign Co-sign Detail Recorded Client Recorded Date Recorded By Document 07/19/22 13:32 [facility] [id number] 07/19/22 13:39 [facility] 07/19/22 13:32 Wound Center Nurse 1 #1- R 3RD FINGER (POST OP) -Combined with other wound No -Current Size (cm) - Length 1 -Current Size (cm) - Width 1 -Current Size (cm) - Depth 0.1 -Total Square Cm 1 -Date of Last Picture (Recall this 07/19/22 field) -Photo Taken Yes -Epithelialization None Present -Tunneling No -Undermining/Tunneling No -Circular Undermining No -Exudate Amt Small -Exudate Type Serosanguineous -Wound Margin Distinct, Outline Attached -Granulation Amt Large (67-100%) -Granulation Quality [place] -Slough/Fibrin Yes -Necrosis Amt Small (1-33%) -Necrotic Tissue Type Adherent Slough -Texture (Jessica-wound Skin Appearance) Assessed, Scarring -Moisture (Jessica-wound Skin Appearance) Assessed,Dry/ Scaly -Color (Jessica-wound Skin Appearance) Assessed -Temperature (Jessica-wound Skin No Abnormality Appearance) (Pt Warm) -Tenderness on Palpation (Jessica-wound No Skin Appearance) -Ulcer Cleansing Rinsed/ Irrigated with Saline -Foul Odor after Cleansing No -Anesthetic Used 5% Lidocaine Gel WC - Nurse 2 - General Ulcer CM Notes Start: 07/19/22 13:32 Freq: Status: Active Protocol: Activity Type Activity Date Activity User E-sign Co-sign Detail Recorded Client Recorded Date Recorded By Document 07/19/22 14:16 [id number] 07/19/22 14:21 ALBERTO 07/19/22 14:16 Wound Center Nurse 2 -Time 14:16 -Correct Patient Yes -Correct Side, Site, Position Yes -Correct Procedure Yes -Procedure Performed Yes -Type of Procedure Debridement -Clinical Debridement Muscle / Fascia -Tissue Removed Muscle -Post Debridement (cm) - Length 1.4 -Post Debridement (cm) - Width 1.3 -Post Debridement (cm) - Depth 0.1 -Total Square (Post) (cm) 1.82 -Area of Debridement (cm) - Length 1.4 -Area of Debridement (cm) - Width 1.3 -Total Square (Area) (cm) 1.82 -Tunneling No -Undermining/Tunneling No -Circular Undermining No -Wound/Ulcer Outcome Not Healed -Ulcer Cleansing Rinsed/ Irrigated with Saline -Foul Odor after Cleansing No -Bioengineered Tissue No -Bleeding Controlled with Pressure -Treatment Response Procedure Tolerated Well -Offloading No -Debridement - Subq, 1st 20sq cm No -Debridement - Muscle / Fascia, 1st Yes 20sq cm Pain Scale: 0-10 Numeric Is Patient Pain Free? Yes WC - Nurse 3 - General Ulcer D/C NN Start: 07/19/22 13:32 Freq: Status: Active Protocol: Activity Type Activity Date Activity User E-sign Co-sign Detail Recorded Client Recorded Date Recorded By Document 07/19/22 14:31 [facility] [id number] 07/19/22 14:31 [facility] 07/19/22 14:31 Wound Care Center Nurse 3 #1- R 3RD FINGER (POST OP) -Ulcer Cleansing Rinsed/ Irrigated with Saline -Foul Odor after Cleansing No -Primary Dressing Applied Silvercel -Other Dressing TOPPED W/ SPANDAGE/COBAN; DRSG PER [place] ACCOUNTS RECEIVABLE COLLECTOR -Primary Dressing Covered/Secured with Secured with Tape -Silvercel 1 Treatment Response Procedure Tolerated Well Pain Scale: 0-10 Numeric Is Patient Pain Free? Yes WC - Visit Discharge Discharge Condition Stable Ambulatory Status Ambulatory Transportation Private Auto Accompanied by FRIEND Facility Type Home Health Charges/Coding Procedures Integumentary [id number]: [id number] Global Visit Assessment/Plan Assessment/Plan (1) Osteomyelitis of finger of right hand: CODE(S): M86.9 - Osteomyelitis, unspecified (2) senior care (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: CODE(S): Z79.01 - assistant terminal manager (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 (3) MRSA infection: CODE(S): A49.02 - Methicillin resistant Staphylococcus aureus infection, unspecified site (4) Diabetes: CODE(S): E11.9 - Type 2 diabetes mellitus without complications (5) Type II diabetes mellitus: CODE(S): E11.9 - Type 2 diabetes mellitus without complications (6) Skin ulcer of finger: CODE(S): L98.499 - Non-pressure chronic ulcer of skin of other sites with unspecified severity PLAN: Plan Patient evaluated at the wound healing center today. Wound care - Moistened silvercel topped with gauze. May use spandage to secure to finger. If need to use bandaid, that is ok. Change dressing daily and prn. Keep hand elevated. She is receiving IV Vancomycin and oral Cipro. She is being seen by ID. Follow up one week.
[2022-07-26 15:07] VITALS: BP 168/73; PULSE 77; RESP 20; TEMP 36.1; BMI 34.9
--- NOTE | 2022-07-26 15:42 | PN.PCM_ITS ---
History of Present Illness Date of Service: 07/26/22 Chief Complaint: Right long finger ulcer History of Wound: This 72-year-old white female was seen in the emergency room at [facility] for redness and drainage of a right third finger amputation stump site and positive MRSA blood cultures. She was seen in the emergency room 3 days prior and sent home on Keflex but the wound culture came back positive for MRSA and the prescription was changed from Keflex to Bactrim, the morning she was seen in the ER this admission, her blood culture was positive for Staph aureus and she was called to the ED for evaluation. Blood work showed a normal white blood cell count, patient's creatinine was elevated at 2.33 and BUN was 68 patient's blood sugar was 167. 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 Patient was admitted to PCU for a nonhealing amputation stump MRSA ulcer with exposed bone suspicious for os teomyelitis and started on IV antibiotics. She has diabetes mellitus and is at risk for worsening infection that may extend to other parts of the hand which may lead to stiffness and difficulty with range of motion. Surgery 07/12/22 - Surgical preparation right long finger amputation stump ulcer with incision and drainage and excisional debridement MRSA abscess and partial ostectomy middle phalanx for osteomyelitis. Operative tissue cultures positive for Enterobacter cloacae complex and MRSA. Operative bone cultures positive for MRSA and MRSE. She was discharged home on 07/15/22 with a PICC line and IV Vancomycin and oral Cipro. She was seen by ID while hospitalized and is to follow up with him in 2 weeks. She has home health and friends to help with the IV antibiotics and dressing changes. Today she denies fever, chills, nausea or vomiting. Progress of Wound: Right long finger ulcer is improving. There is some depth on the radial aspect of the ulcer. The bone appears to be covered. She is tolerating dressing changes well. Objective Data Objective Data Vital Signs: Vital Signs Temp Pulse Resp BP O2 Del Method 96.9 F L 77 20 H 168/73 H Room Air 07/26/22 15:07 07/26/22 15:07 07/26/22 15:07 07/26/22 15:07 03/06/23 13:32 Oxygen Delivery Method Room Air Weight: 185 lb Body Mass Index (BMI) 34.9 Charges/Coding Procedures Integumentary 111xxx-113xx: [id number] Global Visit Debridement Note Debridement Note Wound debrided: long finger stump ulcer Laterality: Right Type of Debridement: Excisional debridement Anesthesia Used: 5% Lidocaine Gel Depth: Down to and including healthy tissue and in the subcutaneous layer Percentage of wound debrided: 100 Instrument Used: 3mm curette Tissue Removed: Devitalized tissue and slough Severity: Fat Layer Exposed Amount of bleeding with debridement: Mild Bleeding Controlled with: Pressure and Compression and gauze Patient tolerated procedure: Patient tolerated procedure well Post-Debridement Measurements and Additional Note: Post-Debridement Measurements/Treatment - Nurse 1 - General Ulcer Assessment Start: 07/19/22 13:32 Freq: Status: Active Protocol: DENG Activity Type Activity Date Activity User E-sign Co-sign Detail Recorded Client Recorded Date Recorded By Document 07/19/22 13:32 [facility] [id number] 07/19/22 13:39 BM Document 07/26/22 15:07 DL [id number] 07/26/22 15:13 DL Edit Result 07/26/22 15:07 DL (1) [id number] 07/26/22 15:18 DL (1) Finger Stick Blood Sugar(mg/dl) (if => 147 indicated): Blood Sugar => Stated by Patient Temperature (97.8 F-99.1 F) => 96.9 F L Temperature Source => Temporal Pulse Rate (60-100) => 77 Pulse Location => Monitor Respiratory Rate (12-18) => 20 H Respiratory rate source => Observation Blood Pressure (90/60-120/80) => 168/73 H Blood Pressure Mean (mm Hg) => 104 Source => Monitor 07/19/22 07/26/22 13:32 15:07 - Today's Visit Information Type of service Initial Visit Follow-up Visit (Physician/BALANCE TRUER ) Arrival Mode Ambulatory, Ambulatory, Walker Walker Transfer Assistance None None Patient Identification Verified (Name & Yes Yes ) Patient Requires Transmission-Based No No Precautions Finger Stick Blood Sugar(mg/dl) (if 147 indicated): Blood Sugar Stated by Patient Height and Weight Height 5 ft 1 in Weight 185 lb Weight in Pounds 185.0 lbs Weight Measurement Method Stated by Patient Body Mass Index (BMI) 34.9 34.9 BMI Classification Obese Obese BSA - Florina 1.83 Vital Signs Temperature (97.8 F-99.1 F) 97.2 F L 96.9 F L Temperature Source Temporal Temporal Pulse Rate (60-100) 16 L 77 Pulse Location Monitor Monitor Respiratory Rate (12-18) 16 20 H Respiratory rate source Observation Observation Oxygen Delivery Method Room Air Blood Pressure (90/60-120/80) 154/67 H 168/73 H Blood Pressure Mean (mm Hg) 96 104 Source Monitor Monitor Position Sitting Blood Pressure Location Right Arm History Since Last Visit- (Skip if this is Patient's initial visit) Have you changed medications since your No last visit? Any new allergies or adverse reactions No Had a fall/change in ADL's that may No increase risk of falls Signs or symptoms of abuse and/or No neglect since last visit Have you been in the hospital since your No last visit? Has dressing in place as prescribed Yes Has compression in place as prescribed N/A Has offloadiing in place as prescribed N/A Experienced any changes in pain level or No management Left Footwear Regular Shoe Right Footwear Regular Shoe Pain Scale: 0-10 Numeric Is Patient Pain Free? Yes Yes Communication Assessment Preferred language Indonesian Luster Applicator Required No Able to Read Yes Able to Write No: has difficulty Communication Tools None Right Hearing Abillity Hard of Hearing Left Hearing Abillity Hard of Hearing Visual Assistive Devices Glasses Teaching Assessment Preferences Verbal,Written, Audio/Visual, Demonstration Barriers to Learning Hearing Impairment Readiness To Learn Excellent Willingness to Engage in Self Management High Activies Readiness to Engage in Self Management High Activities Anxiety Level Calm Cooperation Cooperative Perception Coherent Interest in Health Problem Asks Questions Education Importance Acknowledges Need Does Patient Smoke tobacco or other No substances Smoking Status Never smoker Is Patient Diabetic Yes Functional Assessment Recent Decline in Ability to Perform Denies Any Declines 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 Cultural/Yarsanism Needs that may affect No Treatment Plan Teaching: Wound Center *Welcome to the Wound Center -Person Taught Patient,Family -Teaching Method Discussion -Response to teaching Verbalize understanding Welcome to the Wound Care Center English PACE - Nurse 1 - General Ulcer Measurement Start: 07/19/22 13:32 Freq: Status: Active Protocol: Activity Type Activity Date Activity User E-sign Co-sign Detail Recorded Client Recorded Date Recorded By Document 07/19/22 13:32 BMF [id number] 07/19/22 13:39 BMF Document 07/26/22 15:07 DL [id number] 07/26/22 15:13 DL Edit Result 07/26/22 15:07 DL (1) [id number] 07/26/22 15:18 DL (1) #1- R 3RD FINGER (POST OP) - Current Size (cm) - Length => 0.9 - Current Size (cm) - Width => 0.6 - Current Size (cm) - Depth => 0.1 - Total Square Cm => 0.54 07/19/22 07/26/22 13:32 15:07 Wound Center Nurse 1 #1- R 3RD FINGER (POST OP) -Combined with other wound No -Current Size (cm) - Length 1 0.9 -Current Size (cm) - Width 1 0.6 -Current Size (cm) - Depth 0.1 0.1 -Total Square Cm 1 0.54 -Date of Last Picture (Recall this 07/19/22 field) -Photo Taken Yes No -Epithelialization None Present -Tunneling No -Undermining/Tunneling No -Circular Undermining No -Exudate Amt Small Small -Exudate Type Serosanguineous -Wound Margin Distinct, Distinct, Outline Outline Attached Attached -Granulation Amt Large (67-100%) Small (1-33%) -Granulation Quality [place] -Slough/Fibrin Yes -Necrosis Amt Small (1-33%) Small (1-33%) -Necrotic Tissue Type Adherent Slough Adherent Slough -Structure Exposed N/A -Texture (Jessica-wound Skin Appearance) Assessed, Scarring Scarring -Moisture (Jessica-wound Skin Appearance) Assessed,Dry/ No Abnormality Scaly -Color (Jessica-wound Skin Appearance) Assessed No Abnormality -Temperature (Jessica-wound Skin No Abnormality No Abnormality Appearance) (Pt Warm) (Pt Warm) -Tenderness on Palpation (Jessica-wound No No Skin Appearance) -Ulcer Cleansing Rinsed/ Rinsed/ Irrigated with Irrigated with Saline Saline -Foul Odor after Cleansing No No -Anesthetic Used 5% Lidocaine 5% Lidocaine Gel Gel WC - Nurse 2 - General Ulcer CM Notes Start: 07/19/22 13:32 Freq: Status: Active Protocol: Activity Type Activity Date Activity User E-sign Co-sign Detail Recorded Client Recorded Date Recorded By Document 07/19/22 14:16 [id number] 07/19/22 14:21 Document 07/26/22 15:29 [id number] 07/26/22 15:33 07/19/22 07/26/22 14:16 15:29 Wound Center Nurse 2 #1- R 3RD FINGER (POST OP) -Time 14:16 15:30 -Correct Patient Yes Yes -Correct Side, Site, Position Yes Yes -Correct Procedure Yes Yes -Procedure Performed Yes Yes -Type of Procedure Debridement Debridement -Clinical Debridement Muscle / Fascia Muscle / Fascia -Tissue Removed Muscle Muscle,Fascia -Post Debridement (cm) - Length 1.4 0.7 -Post Debridement (cm) - Width 1.3 0.7 -Post Debridement (cm) - Depth 0.1 0.4 -Total Square (Post) (cm) 1.82 0.49 -Area of Debridement (cm) - Length 1.4 0.7 -Area of Debridement (cm) - Width 1.3 0.7 -Total Square (Area) (cm) 1.82 0.49 -Tunneling No No -Undermining/Tunneling No No -Circular Undermining No No -Wound/Ulcer Outcome Not Healed Not Healed -Ulcer Cleansing Rinsed/ Rinsed/ Irrigated with Irrigated with Saline Saline -Foul Odor after Cleansing No No -Bioengineered Tissue No No -Bleeding Controlled with Pressure Pressure -Treatment Response Procedure Procedure Tolerated Well Tolerated Well -Offloading No No -Debridement - Subq, 1st 20sq cm No -Debridement - Muscle / Fascia, 1st Yes Yes 20sq cm Pain Scale: 0-10 Numeric Is Patient Pain Free? Yes Yes WC - Nurse 3 - General Ulcer D/C NN Start: 07/19/22 13:32 Freq: Status: Active Protocol: Activity Type Activity Date Activity User E-sign Co-sign Detail Recorded Client Recorded Date Recorded By Document 07/19/22 14:31 [facility] [id number] 07/19/22 14:31 [facility] 07/19/22 14:31 Wound Care Center Nurse 3 #1- R 3RD FINGER (POST OP) -Ulcer Cleansing Rinsed/ Irrigated with Saline -Foul Odor after Cleansing No -Primary Dressing Applied Silvercel -Other Dressing TOPPED W/ SPANDAGE/COBAN; DRSG PER [place] PATTERN FITTER -Primary Dressing Covered/Secured with Secured with Tape -Silvercel 1 Treatment Response Procedure Tolerated Well Pain Scale: 0-10 Numeric Is Patient Pain Free? Yes WC - Visit Discharge Discharge Condition Stable Ambulatory Status Ambulatory Transportation Private Auto Accompanied by FRIEND Facility Type Home Health Assessment/Plan Assessment/Plan (1) Skin ulcer of finger: CODE(S): L98.499 - Non-pressure chronic ulcer of skin of other sites with unspecified severity (2) Osteomyelitis of finger of right hand: CODE(S): M86.9 - Osteomyelitis, unspecified (3) equine vet (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: CODE(S): Z79.01 - equine vet (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 (4) MRSA infection: CODE(S): A49.02 - Methicillin resistant Staphylococcus aureus infection, unspecified site (5) Diabetes: CODE(S): E11.9 - Type 2 diabetes mellitus without complications (6) Type II diabetes mellitus: CODE(S): E11.9 - Type 2 diabetes mellitus without complications PLAN: Plan Patient evaluated at the wound healing center today. Wound care - Moistened silvercel topped with gauze changed 3 times a week and PRN. She does not have someone who is able to change it daily. May use spandage to secure to finger. If need to use bandaid, that is ok. Keep hand elevated. She is receiving IV Vancomycin and oral Cipro. She is being seen by ID. Follow up one week.
[2022-08-02 14:34] VITALS: BP 183/89; PULSE 64; RESP 16; TEMP 37.2; BMI 34.9
--- NOTE | 2022-08-02 14:56 | PCM.WC.PN ---
History of Present Illness Date of Service: 08/02/22 Chief Complaint: Right long finger ulcer History of Wound: This 72-year-old white female was seen in the emergency room at [facility] for redness and drainage of a right third finger amputation stump site and positive MRSA blood cultures. She was seen in the emergency room 3 days prior and sent home on Keflex but the wound culture came back positive for MRSA and the prescription was changed from Keflex to Bactrim, the morning she was seen in the ER this admission, her blood culture was positive for Staph aureus and she was called to the ED for evaluation. Blood work showed a normal white blood cell count, patient's creatinine was elevated at 2.33 and BUN was 68 patient's blood sugar was 167. 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 Patient was admitted to PCU for a nonhealing amputation stump MRSA ulcer with exposed bone suspicious for osteomyelitis and started on IV antibiotics. She has diabetes mellitus and is at risk for worsening infection that may extend to other parts of the hand which may lead to stiffness and difficulty with range of motion. Surgery 07/12/22 - Surgical preparation right long finger amputation stump ulcer with incision and drainage and excisional debridement MRSA abscess and partial ostectomy middle phalanx for osteomyelitis. Operative tissue cultures positive for Enterobacter cloacae complex and MRSA. Operative bone cultures positive for MRSA and MRSE. She was discharged home on 07/15/22 with a PICC line and IV Vancomycin and oral Cipro. She was seen by ID while hospitalized and is to follow up with him in 2 weeks. She has home health and friends to help with the IV antibiotics and dressing changes. Today she denies fever, chills, nausea or vomiting. Progress of Wound: Right long finger ulcer is improving. There is some depth on the radial aspect of the ulcer but is decreasing. She is tolerating dressing changes well. Objective Data Objective Data Vital Signs: Vital Signs Temp Pulse Resp BP O2 Del Method 98.9 F 64 16 183/89 H Room Air 08/02/22 14:34 08/02/22 14:34 08/02/22 14:34 08/02/22 14:34 08/02/22 14:34 Oxygen Delivery Method Room Air Weight: 185 lb Body Mass Index (BMI) 34.9 Charges/Coding Procedures Integumentary 111xxx-113xx: [id number] Global Visit Debridement Note Debridement Note Wound debrided: long finger stump ulcer Laterality: Right Type of Debridement: Excisional debridement Anesthesia Used: 5% Lidocaine Gel Depth: Down to and including healthy tissue, in the subcutaneous layer and to muscle Percentage of wound debrided: 100 Instrument Used: 3mm curette Tissue Removed: Devitalized tissue and slough into the muscle/tendon Severity: Fat Layer Exposed Amount of bleeding with debridement: Mild Bleeding Controlled with: Pressure and Compression and gauze Patient tolerated procedure: Patient tolerated procedure well Post-Debridement Measurements and Additional Note: Post-Debridement Measurements/Treatment - Nurse 1 - General Ulcer Assessment Start: 07/19/22 13:32 Freq: Status: Active Protocol: DENG Activity Type Activity Date Activity User E-sign Co-sign Detail Recorded Client Recorded Date Recorded By Document 07/19/22 13:32 [facility] [id number] 07/19/22 13:39 BMF Document 07/26/22 15:07 DL [id number] 07/26/22 15:13 DL Edit Result 07/26/22 15:07 DL (1) [id number] 07/26/22 15:18 DL Document 08/02/22 14:34 [facility] [id number] 08/02/22 14:37 BMF (1) Finger Stick Blood Sugar(mg/dl) (if => 147 indicated): Blood Sugar => Stated by Patient Temperature (97.8 F-99.1 F) => 96.9 F L Temperature Source => Temporal Pulse Rate (60-100) => 77 Pulse Location => Monitor Respiratory Rate (12-18) => 20 H Respiratory rate source => Observation Blood Pressure (90/60-120/80) => 168/73 H Blood Pressure Mean (mm Hg) => 104 Source => Monitor 07/19/22 07/26/22 08/02/22 13:32 15:07 14:34 - Today's Visit Information Type of service Initial Visit Follow-up Visit Follow-up Visit (Physician/TAPE KELLER OPERATOR (Physician/TAPE KELLER OPERATOR ) ) Arrival Mode Ambulatory, Ambulatory, Ambulatory, Walker Walker Walker Transfer Assistance None None None Patient Identification Verified (Name & Yes Yes Yes ) Patient Requires Transmission-Based No No No Precautions Finger Stick Blood Sugar(mg/dl) (if 147 indicated): Blood Sugar Stated by Patient Height and Weight Height 5 ft 1 in Weight 185 lb Weight in Pounds 185.0 lbs Weight Measurement Method Stated by Patient Body Mass Index (BMI) 34.9 34.9 34.9 BMI Classification Obese Obese Obese BSA - Florina 1.83 Vital Signs Temperature (97.8 F-99.1 F) 97.2 F L 96.9 F L 98.9 F Temperature Source Temporal Temporal Temporal Pulse Rate (60-100) 16 L 77 64 Pulse Location Monitor Monitor Monitor Respiratory Rate (12-18) 16 20 H 16 Respiratory rate source Observation Observation Observation Oxygen Delivery Method Room Air Room Air Blood Pressure (90/60-120/80) 154/67 H 168/73 H 183/89 H Blood Pressure Mean (mm Hg) 96 104 120 Source Monitor Monitor Monitor Position Sitting Sitting Blood Pressure Location Right Arm Left Arm History Since Last Visit- (Skip if this is Patient's initial visit) Have you changed medications since your No No last visit? Any new allergies or adverse reactions No No Had a fall/change in ADL's that may No increase risk of falls Signs or symptoms of abuse and/or No No neglect since last visit Have you been in the hospital since your No No last visit? Has dressing in place as prescribed Yes Yes Has compression in place as prescribed N/A N/A Has offloadiing in place as prescribed N/A N/A Experienced any changes in pain level or No No management Left Footwear Regular Shoe Regular Shoe Right Footwear Regular Shoe Regular Shoe Pain Scale: 0-10 Numeric Is Patient Pain Free? 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 No Able to Read Yes Able to Write No: has difficulty Communication Tools None Right Hearing Abillity Hard of Hearing Left Hearing Abillity Hard of Hearing Visual Assistive Devices Glasses Teaching Assessment Preferences Verbal,Written, Audio/Visual, Demonstration Barriers to Learning Hearing Impairment Readiness To Learn Excellent Willingness to Engage in Self Management High Activies Readiness to Engage in Self Management High Activities Anxiety Level Calm Cooperation Cooperative Perception Coherent Interest in Health Problem Asks Questions Education Importance Acknowledges Need Does Patient Smoke tobacco or other No substances Smoking Status Never smoker Is Patient Diabetic Yes Functional Assessment Recent Decline in Ability to Perform Denies Any Declines Culture/Samaritan/Di[place]er Cultural/Samaritan Needs that may affect No Treatment Plan Teaching: Wound Center *Welcome to the Wound Center -Person Taught Patient,Family -Teaching Method Discussion -Response to teaching Verbalize understanding Welcome to the Wound Care Center English PACE - Nurse 1 - General Ulcer Measurement Start: 07/19/22 13:32 Freq: Status: Active Protocol: Activity Type Activity Date Activity User E-sign Co-sign Detail Recorded Client Recorded Date Recorded By Document 07/19/22 13:32 BMF [id number] 07/19/22 13:39 BMF Document 07/26/22 15:07 DL [id number] 07/26/22 15:13 DL Edit Result 07/26/22 15:07 DL (1) [id number] 07/26/22 15:18 DL Document 08/02/22 14:34 BMF [id number] 08/02/22 14:37 BMF (1) #1- R 3RD FINGER (POST OP) - Current Size (cm) - Length => 0.9 - Current Size (cm) - Width => 0.6 - Current Size (cm) - Depth => 0.1 - Total Square Cm => 0.54 07/19/22 07/26/22 08/02/22 13:32 15:07 14:34 Wound Center Nurse 1 #1- R 3RD FINGER (POST OP) -Combined with other wound No No -Current Size (cm) - Length 1 0.9 0.6 -Current Size (cm) - Width 1 0.6 0.5 -Current Size (cm) - Depth 0.1 0.1 0.1 -Total Square Cm 1 0.54 0.30 -Date of Last Picture (Recall this 07/19/22 08/02/22 field) -Photo Taken Yes No Yes -Epithelialization None Present Small 1-33% -Tunneling No No -Undermining/Tunneling No No -Circular Undermining No No -Exudate Amt Small Small Small -Exudate Type Serosanguineous Serosanguineous -Wound Margin Distinct, Distinct, Distinct, Outline Outline Outline Attached Attached Attached -Granulation Amt Large (67-100%) Small (1-33%) Large (67-100%) -Granulation Quality [place] Red -Slough/Fibrin Yes No -Necrosis Amt Small (1-33%) Small (1-33%) None Present (0 %) -Necrotic Tissue Type Adherent Slough Adherent Slough -Structure Exposed N/A -Texture (Jessica-wound Skin Appearance) Assessed, Scarring Assessed, Scarring Scarring -Moisture (Jessica-wound Skin Appearance) Assessed,Dry/ No Abnormality Assessed Scaly -Color (Jessica-wound Skin Appearance) Assessed No Abnormality Assessed -Temperature (Jessica-wound Skin No Abnormality No Abnormality No Abnormality Appearance) (Pt Warm) (Pt Warm) (Pt Warm) -Tenderness on Palpation (Jessica-wound No No No Skin Appearance) -Ulcer Cleansing Rinsed/ Rinsed/ Rinsed/ Irrigated with Irrigated with Irrigated with Saline Saline Saline -Foul Odor after Cleansing No No No -Anesthetic Used 5% Lidocaine 5% Lidocaine 5% Lidocaine Gel Gel Gel WC - Nurse 2 - General Ulcer CM Notes Start: 07/19/22 13:32 Freq: Status: Active Protocol: Activity Type Activity Date Activity User E-sign Co-sign Detail Recorded Client Recorded Date Recorded By Document 07/19/22 14:16 [id number] 07/19/22 14:21 Document 07/26/22 15:29 [id number] 07/26/22 15:33 Document 08/02/22 14:49 [id number] 08/02/22 14:50 07/19/22 07/26/22 08/02/22 14:16 15:29 14:49 Wound Center Nurse 2 #1- R 3RD FINGER (POST OP) -Time 14:16 15:30 14:49 -Correct Patient Yes Yes Yes -Correct Side, Site, Position Yes Yes Yes -Correct Procedure Yes Yes Yes -Procedure Performed Yes Yes Yes -Type of Procedure Debridement Debridement Debridement -Clinical Debridement Muscle / Fascia Muscle / Fascia Muscle / Fascia -Tissue Removed Muscle Muscle,Fascia Muscle,Fascia -Post Debridement (cm) - Length 1.4 0.7 0.6 -Post Debridement (cm) - Width 1.3 0.7 0.7 -Post Debridement (cm) - Depth 0.1 0.4 0.2 -Total Square (Post) (cm) 1.82 0.49 0.42 -Area of Debridement (cm) - Length 1.4 0.7 0.6 -Area of Debridement (cm) - Width 1.3 0.7 0.7 -Total Square (Area) (cm) 1.82 0.49 0.42 -Tunneling No No No -Undermining/Tunneling No No No -Circular Undermining No No No -Wound/Ulcer Outcome Not Healed Not Healed Not Healed -Ulcer Cleansing Rinsed/ Rinsed/ Rinsed/ Irrigated with Irrigated with Irrigated with Saline Saline Saline -Foul Odor after Cleansing No No No -Bioengineered Tissue No No No -Bleeding Controlled with Pressure Pressure Pressure -Treatment Response Procedure Procedure Procedure Tolerated Well Tolerated Well Tolerated Well -Offloading No No No -Debridement - Subq, 1st 20sq cm No No -Debridement - Muscle / Fascia, 1st Yes Yes Yes 20sq cm Pain Scale: 0-10 Numeric Is Patient Pain Free? Yes Yes Yes - Nurse 3 - General Ulcer D/C NN Start: 07/19/22 13:32 Freq: Status: Active Protocol: Activity Type Activity Date Activity User E-sign Co-sign Detail Recorded Client Recorded Date Recorded By Document 07/19/22 14:31 [facility] [id number] 07/19/22 14:31 [facility] Document 07/26/22 15:43 [id number] 07/26/22 15:44 DL 07/19/22 07/26/22 14:31 15:43 Wound Care Center Nurse 3 #1- R 3RD FINGER (POST OP) -Ulcer Cleansing Rinsed/ Rinsed/ Irrigated with Irrigated with Saline Saline -Foul Odor after Cleansing No No -Primary Dressing Applied Silvercel Silvercel -Other Dressing TOPPED W/ SPANDAGE/COBAN; DRSG PER [place] LEAD 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 Yes Yes - Visit Discharge Discharge Condition Stable Stable Ambulatory Status Ambulatory Ambulatory, Walker Transportation Private Auto Private Auto Accompanied by FRIEND Facility Type Home Health Home Health Orders Sent Yes Assessment/Plan Assessment/Plan (1) Skin ulcer of finger: CODE(S): L98.499 - Non-pressure chronic ulcer of skin of other sites with unspecified severity (2) Osteomyelitis of finger of right hand: CODE(S): M86.9 - Osteomyelitis, unspecified (3) care home (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: CODE(S): Z79.01 - care home (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 (4) MRSA infection: CODE(S): A49.02 - Methicillin resistant Staphylococcus aureus infection, unspecified site (5) Diabetes: CODE(S): E11.9 - Type 2 diabetes mellitus without complications (6) Type II diabetes mellitus: CODE(S): E11.9 - Type 2 diabetes mellitus without complications PLAN: Plan Patient evaluated at the wound healing center today. Wound care - Moistened silvercel topped with gauze changed 3 times a week and PRN. She does not have someone who is able to change it daily. May use spandage to secure to finger. If need to use bandaid, that is ok. Keep hand elevated. She is receiving IV Vancomycin and oral Cipro which she is tolerating well. She is being seen by ID. Follow up two weeks since I will be out of town next week.
== END 2022-08-13 23:59 | disposition home or self-care (01) ==
LOC: WC 14:30
PROVIDERS: PCP Internal Medicine; Visit Provider Nurse Practitioner Family
DX: T87.89 Other complications of amputation stump (principal); L98.492 Non-pressure chronic ulcer of skin of other sites with fat layer exposed; M86.8X4 Other osteomyelitis, hand; E11.69 Type 2 diabetes mellitus with other specified complication; I48.0 Paroxysmal atrial fibrillation; B95.62 Methicillin resistant Staphylococcus aureus infection as the cause of diseases classified elsewhere; Y83.5 Amputation of limb(s) as the cause of abnormal reaction of the patient, or of later complication, without mention of misadventure at the time of the procedure; D64.9 Anemia, unspecified; I10 Essential (primary) hypertension; E78.00 Pure hypercholesterolemia, unspecified; F32.A Depression, unspecified; F41.9 Anxiety disorder, unspecified; Z79.82 Long term (current) use of aspirin; Z79.84 Long term (current) use of oral hypoglycemic drugs; Z79.2 Long term (current) use of antibiotics; Z79.01 Long term (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; Z87.891 Personal history of nicotine dependence
CPT/HCPCS: 11043; 99213; G0463

== ENCOUNTER 2022-08-04 15:11 | Outpatient (RCR) | payer MEDICARE, SELFPAY ==
[2022-07-21 13:32] LABS: Anion Gap 7 (5-15); BUN 36 mg/dL (7-18); Calcium,Total 9.4 mg/dL (8.5-10.1); Chloride 109 mmol/L (98-107); EST Glomerular Filtration Rate 36 mL/min (>60); Est Glom Filt Rate - Afr Amer 44 mL/min (>60); Glucose 156 mg/dL (74-106); Potassium 4.4 mmol/L (3.5-5.1); Sodium Level 140 mmol/L (136-145)
[2022-07-21 13:35] LABS: Erythrocyte Sedimentation Rate 45 mm/hr (0-30); Vancomycin, Trough Level 16.4 ug/mL (5.0-15.0)
[2022-07-21 13:40] LABS: Hematocrit 31.1 % (37-47); Hemoglobin 9.7 g/dL (12.0-15.0); Mean Corp Hgb Conc 31.2 g/dL (32-36); Mean Corpuscular Hgb 27.1 pg (27.0-32.0); Mean Corpuscular Volume 86.9 fL (81-99); Mean Platelet Vol. 10.4 fl (6.2-12.0); Platelet Count 239 K/mm3 (150-450); RBC Distribution Width CV 14.9 % (11.6-14.6); RBC Distribution Width SD 47.8 fl (35.1-43.9); Red Blood Count 3.58 M/mm3 (4.2-5.4); White Blood Count 7.9 K/mm3 (4.4-11.0)
[2022-07-28 17:11] LABS: Hematocrit 31.4 % (37-47); Hemoglobin 9.5 g/dL (12.0-15.0); Mean Corp Hgb Conc 30.3 g/dL (32-36); Mean Corpuscular Volume 89.2 fL (81-99); Mean Platelet Vol. 10.1 fl (6.2-12.0); Platelet Count 250 K/mm3 (150-450); RBC Distribution Width CV 15.6 % (11.6-14.6); RBC Distribution Width SD 50.7 fl (35.1-43.9); Red Blood Count 3.52 M/mm3 (4.2-5.4); White Blood Count 6.7 K/mm3 (4.4-11.0)
[2022-07-28 17:36] LABS: Erythrocyte Sedimentation Rate 44 mm/hr (0-30)
[2022-07-28 17:48] LABS: Anion Gap 8 (5-15); BUN 25 mg/dL (7-18); BUN/Creat Ratio 21.2 RATIO (10-20); Calcium,Total 9.3 mg/dL (8.5-10.1); Chloride 106 mmol/L (98-107); Creatinine, Serum 1.18 mg/dL (0.55-1.02); EST Glomerular Filtration Rate 48 mL/min (>60); Est Glom Filt Rate - Afr Amer 58 mL/min (>60); Glucose 186 mg/dL (74-106); Potassium 4.2 mmol/L (3.5-5.1); Sodium Level 139 mmol/L (136-145)
[2022-07-28 19:18] LABS: Vancomycin, Trough Level 16.6 ug/mL (5.0-15.0)
[2022-08-04 15:46] LABS: Hematocrit 32.7 % (37-47); Hemoglobin 9.9 g/dL (12.0-15.0); Mean Corp Hgb Conc 30.3 g/dL (32-36); Mean Corpuscular Volume 89.3 fL (81-99); Platelet Count 278 K/mm3 (150-450); RBC Distribution Width CV 15.5 % (11.6-14.6); RBC Distribution Width SD 50.9 fl (35.1-43.9); Red Blood Count 3.66 M/mm3 (4.2-5.4)
[2022-08-04 16:03] LABS: Anion Gap 8 (5-15); BUN 38 mg/dL (7-18); BUN/Creat Ratio 32.5 RATIO (10-20); Calcium,Total 9.2 mg/dL (8.5-10.1); Chloride 108 mmol/L (98-107); Creatinine, Serum 1.17 mg/dL (0.55-1.02); EST Glomerular Filtration Rate 49 mL/min (>60); Est Glom Filt Rate - Afr Amer 59 mL/min (>60); Glucose 76 mg/dL (74-106); Potassium 4.3 mmol/L (3.5-5.1); Sodium Level 141 mmol/L (136-145)
[2022-08-04 16:17] LABS: Erythrocyte Sedimentation Rate 39 mm/hr (0-30)
[2022-08-04 16:23] LABS: Vancomycin, Trough Level 16.8 ug/mL (5.0-15.0)
== END 2022-08-13 18:00 | disposition home or self-care (01) ==
LOC: HHLAB 15:11
PROVIDERS: PCP Internal Medicine; Referring Provider Internal Medicine Infectious Disease; Visit Provider Internal Medicine Infectious Disease
DX: M86.9 Osteomyelitis, unspecified (principal)
CPT/HCPCS: 80048; 80202; 85027; 85652

== ENCOUNTER → 2022-08-05 | Outpatient (CLI) | payer MEDICARE, SELFPAY ==
[2022-08-05 11:41] LABS: INR Fingerstick 1.6; Prothrombin Time Fingerstick 17.6 SEC (11.7-14.9)
== END | disposition home or self-care (01) ==
LOC: LAB 07:14
PROVIDERS: PCP Internal Medicine; Referring Provider Nurse Practitioner Family; Visit Provider Nurse Practitioner Family
DX: Z79.01 Long term (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 (principal); I63.9 Cerebral infarction, unspecified
CPT/HCPCS: 36416; 85610

== ENCOUNTER 2022-08-11 15:36 | Inpatient (IN) | payer MEDICARE, SELFPAY ==
[2022-08-11 15:37] VITALS: BP 139/88; PULSE 133; RESP 18; TEMP 35.9; O2SAT 97
[2022-08-11 15:58] VITALS: BMI 35.6
--- NOTE | 2022-08-11 16:02 | EKG12_ITS ---
Test Reason : HIGH HR Blood Pressure : / mmHG Vent. Rate : 130 BPM Atrial Rate : 260 BPM P-R Int : 000 ms QRS Dur : 076 ms QT Int : 366 ms P-R-T Axes : 000 021 -55 degrees QTc Int : 538 ms Atrial flutter with 2:1 A-V conduction Low voltage QRS Nonspecific ST and T wave abnormality Abnormal ECG Confirmed by LESLY CALLOWAY, SOCOR[place] ([id number]), editor magazine [place] ([id number]) on 08/16/2022 10:41:42 AM Referred By: THOMAS Confirmed By:LAURA GRACE MD
--- NOTE | 2022-08-11 16:10 | RAD_ITS ---
STUDY: XR Chest 1 View 08/11/2022 4:09 PM REASON FOR EXAM: Female, 72 years old. TACHYCARDIA AND CLOGGED PICC LINE, DENIES ANY CHEST PAIN/PALIPATIONS chest pain COMPARISON: 4 TECHNIQUE: XR Chest 1 View FINDINGS: There is no demonstrated pleural abnormality. There is no pneumothorax. There is a left PICC line in place. The tip is in the superior vena cava. Cervical spine fusion hardware noted. Normal heart size. Normal mediastinum. Normal nevin. Prominent appearing increased interstitial lung markings. Normal visualized pulmonary arteries. There is atherosclerotic calcification of the aortic arch with tortuosity. There are diffuse degenerative changes of the visualized thoracic spine. There is degenerative osteoarthritis of the bilateral shoulders. There is no demonstrated abnormality of the visualized soft tissue structures of the upper abdomen. RAD/Chest 1 View (Portable) IMPRESSION: There are no acute findings. Electronically Signed: Evans Goode MD at 16:26 EDT ,
[2022-08-11] MEDS: Alteplase 2 MG/2 ML Vial IV ×2 (16:22→18:49)
--- NOTE | 2022-08-11 16:46 | EX.ED.DYSGE1 ---
HPI History of Present Illness Chief Complaint: Palpitations Narrative Narrative: Patient is a 72-year-old female who is presenting to the ER today because chief complaint of tachycardia and her left PICC line is clogged as well. Patient lives at home by herself. Patient has a friend at bedside. Patient also had an episode of diarrhea last night and today. Otherwise patient has no symptoms. Patient does have a history of A-fib. Patient is on Coumadin. Patient was admitted to the hospital 2 or 3 years ago for A-fib complications. Patient currently has no headache, neck pain. No chest pain or shortness of breath. No abdominal pain, nausea or vomiting. No other acute complaints. Patient has no pain, redness or swelling to her left arm. Patient has no history of PE. Patient was on Eliquis for her A-fib, then she was switched to Coumadin secondary to cost. Patient is compliant with all of her medications. Patient had a home health nurse that was not able to use her PICC line so patient was sent to the ER to help with her PICC line use and tachycardia, PFSH PFSH Medical History (Reviewed 07/25/22 @ 18:27 by Génesis Patel [employer]ST[employer]ER, [employer]ER-C) Abnormal mammogram of right breast Abnormal mammogram of right breast Abscess of right middle finger Acute kidney injury Afib Alcohol use Anemia Anemia Anxiety Anxiety and depression Arthritis Atrial fibrillation Back pain Bacteremia Breast lump Burn injury of skin of finger Cardiology follow-up encounter Chronic cough COVID-19 vaccine series completed CPAP (continuous positive airway pressure) dependence CVA (cerebral vascular accident) Depression Depression with anxiety Diabetes Dietary restriction DKA (diabetic ketoacidoses) Essential hypertension Finger infection Flu vaccine need Former smoker Health care maintenance High cholesterol History of echocardiogram History of edema History of stress test History of UTI HTN (hypertension) Hyperlipidemia Hypertension Irregular heartbeat Kidney disease alf (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 MRSA infection 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 without evidence of necrosis Non-rheumatic mitral valve stenosis Nonrheumatic aortic (valve) stenosis Osteoarthritis Osteomyelitis of finger of right hand Osteoporosis Overactive bladder Pancreatitis Paroxysmal atrial fibrillation Post-menopausal Preoperative evaluation to rule out surgical contraindication Sleep apnea Urinary incontinence, overflow Venous insufficiency Vision problems Walker as ambulation aid Weakness Home Medications ferrous sulfate 325 mg (65 mg iron) tablet 325 mg PO DAILY Supplement 01/27/21 [History Last Taken 07/08/22] ascorbic acid (vitamin C) 500 mg tablet (Vitamin C) 500 mg PO DAILY vitamin 08/21/21 [History Last Taken 07/08/22] acetaminophen 325 mg capsule 650 mg PO Q4H PRN Pain 12/02/21 [History Last Taken 07/08/22] cholecalciferol (vitamin D3) 50 mcg (2,000 unit) capsule 50 mcg PO DAILY vitamin 03/03/22 [History Last Taken 07/08/22] denosumab 60 mg/mL subcutaneous syringe (Prolia) 60 mg subcut [id number] #1 mL 03/11/22 [Rx Last Taken Unknown] glimepiride 4 mg tablet 4 mg PO BID dm 3 months #180 tabs 06/24/22 [Rx Last Taken 07/09/22] losartan 50 mg tablet 50 mg PO BID bp #180 tabs 06/24/22 [Rx Last Taken 07/09/22] oxybutynin chloride 15 mg tablet,extended release 24 hr 15 mg PO BID bladder #180 tabs 06/24/22 [Rx Last Taken 07/09/22] sertraline 100 mg tablet (Zoloft) 100 mg PO DAILY anxiety #90 tabs 06/24/22 [Rx Last Taken 07/08/22] metoprolol tartrate 50 mg tablet 50 mg PO BID heart #180 tabs 06/28/22 [Rx Last Taken 07/09/22] metformin 1,000 mg tablet 1,000 mg PO BID DM #180 tabs 07/06/22 [Rx Last Taken 07/09/22] simvastatin 20 mg tablet 20 mg PO QHS cholesterol #90 tabs 07/06/22 [Rx Last Taken 07/08/22] amlodipine 10 mg tablet 10 mg PO DAILY BP 07/09/22 [History Last Taken 07/09/22] multivitamin 1 tab PO DAILY SUPPLEMENT 07/09/22 [History Last Taken 07/08/22] ciprofloxacin HCl 500 mg tablet 500 mg PO BID 10 days #20 tabs 07/14/22 [Rx Last Taken Unknown] vancomycin 1 gram/200 mL in dextrose 5 % intravenous piggyback 1,000 mg IV Q24H 40 days #8,000 mL 07/14/22 [Rx Last Taken Unknown] aspirin 81 mg chewable tablet 81 mg PO BREAKFAST #0 tabs 07/15/22 [Rx Last Taken Unknown] warfarin 2.5 mg tablet (Jantoven) 2.5 mg PO DINNER #30 tabs 07/30/22 [Rx Last Taken Unknown] Allergy/AdvReac Type Severity Reaction Status Date / Time fosinopril [From Monopril] Allergy Unknown unknown Verified 08/11/22 15:40 pioglitazone AdvReac Other Verified 08/11/22 15:40 Family History (Reviewed 07/25/22 @ 18:27 by Génesis Patel [employer], [employer]ER-C) Father Diabetes Hypertension High cholesterol Heart disease Melanoma Surgical History (Reviewed 07/25/22 @ 18:27 by Génesis Patel [employer]ER, [employer]ER-C) History of back surgery History of carpal tunnel release History of hand surgery History of hysterectomy History of left elbow replacement History of surgical amputation of finger of right hand Hx of colonoscopy S/P hysterectomy S/P ORIF (open reduction internal fixation) fracture Status post surgical amputation of finger of right hand Social History (Reviewed 07/25/22 @ 18:27 by Gnéesis Patel [employer] INST[employer]ER, J[employer]MAN [employer] INST[employer]ER-C) household members: none Smoking Status: Never smoker how long ago did patient quit smokin years ago alcohol intake: current alcohol intake frequency: holidays/special occasions only substance use type: does not use what type of physical activity do you participate in: other details: chantal [facility] Narrative REVIEW OF SYSTEMS: Unless otherwise stated in this report the patient's positive and negative responses for review of systems for constitutional, eyes, ENT, cardiovascular, respiratory, gastrointestinal, neurological, , musculoskeletal, and integument systems and related systems to the presenting problem are either stated in the history of present illness or were not pertinent or were negative for the symptoms and/or complaints related to the presenting medical problem. EXAM Physical Exam Narrative Exam Narrative: Vital signs reviewed and patient is not hypoxic. General: The patient appears well and in no apparent distress. Patient is resting comfortably on cart. Not toxic, lethargic, or listless. Skin: Warm, dry, no pallor noted. There is no rash noted. Patient has no redness, swelling around her left upper extremity. Patient has chronic healing sores to her bilateral lower extremities, and her left anterior lorenzo. Head: Normocephalic, atraumatic Eye: Normal conjunctiva, no drainage, EOMI. PERRL. Ears, Nose, Mouth, and Throat: oral mucosa is moist. Nares patent. Mouth without vesicles. Ear canals patent. Cardiovascular: Increased irregular regular Rate and Rhythm, no murmurs, gallops, or rubs Respiratory: Patient is in no distress, no accessory muscle use, lungs are clear to auscultation, no wheezing, rales or rhonchi Back: non-tender, no CVA tenderness bilaterally to percussion. NO CTLS midline or paracervicl tenderness to palpation. GI: Soft, no tenderness to palpation, no masses appreciated. No rebound, guarding, or rigidity noted. Musculoskeletal: The patient has full range of motion of all extremities and joints with no difficulty. Patient has no pain to palpation to the posterior aspect of her left upper extremity. Patient's PICC line is intact. No tenderness, redness, or signs of cellulitis around the PICC line. Patient has no motor, no sensory deficits. Neurological: A&O x4, normal speech, no focal neurological deficits. Psychiatric: Cooperative Const Vital Signs: 08/11/22 15:37 08/11/22 15:54 08/11/22 16:02 Temperature 96.6 F L Temperature Source Temporal Pulse Rate 133 H Respiratory Rate 18 Respiratory Effort Normal Non-Labored Blood Pressure 139/88 H Blood Pressure Mean 105 Pulse Ox 97 Oxygen Delivery Method Room Air Room Air 08/11/22 17:36 08/11/22 20:25 08/11/22 21:00 Temperature Temperature Source Pulse Rate 134 H 135 H 135 H Respiratory Rate 23 H 28 H Respiratory Effort Blood Pressure 137/104 H 138/97 H Blood Pressure Mean 115 110 Pulse Ox 98 98 Oxygen Delivery Method Room Air Room Air [facility] Lab Data Attestation: I reviewed the patient's lab results. Labs: Laboratory Results - last 24 hr 08/11/22 08/11/22 08/11/22 17:06 17:06 17:06 WBC 4.3 L RBC 4.00 L Hgb 11.0 L Hct 35.0 L MCV 87.5 MCH 27.5 MCHC 31.4 L RDW Std Deviation 49.7 H RDW Coeff of Zee 15.7 H Plt Count 256 MPV 9.9 Immature Gran % (Auto) 0.200 Neut % (Auto) 64.1 Lymph % (Auto) 20.6 Hardeman % (Auto) 10.0 Eos % (Auto) 4.4 Baso % (Auto) 0.7 Absolute Neuts (auto) 2.7 Absolute Lymphs (auto) 0.88 Nucleated RBC % 0 PT 17.3 H INR 1.5 Sodium 138 Potassium 5.1 Chloride 108 H Carbon Dioxide 24.0 Anion Gap 6 BUN 45 H Creatinine 1.33 H Estim Creat Clear Calc 29.70 Est GFR (MDRD) Af Amer 51 L Est GFR (MDRD) Non-Af 42 L BUN/Creatinine Ratio 33.8 H Glucose 169 H Calcium 9.6 Troponin I High Sens 10 B-Natriuretic Peptide 08/11/22 17:06 WBC RBC Hgb Hct MCV MCH MCHC RDW Std Deviation RDW Coeff of Zee Plt Count MPV Immature Gran % (Auto) Neut % (Auto) Lymph % (Auto) Hardeman % (Auto) Eos % (Auto) Baso % (Auto) Absolute Neuts (auto) Absolute Lymphs (auto) Nucleated RBC % PT INR Sodium Potassium Chloride Carbon Dioxide Anion Gap BUN Creatinine Estim Creat Clear Calc Est GFR (MDRD) Af Amer Est GFR (MDRD) Non-Af BUN/Creatinine Ratio Glucose Calcium Troponin I High Sens B-Natriuretic Peptide 750.3 H Radiography Chest X-Ray - ED: 1 View (Chest x-ray shows no acute cardiopulmonary disease, no infiltrate, no effusion) and Read by ED Physician Diagnostic Testing: Clinical Impression(s) from Imaging Studies Chest X-Ray 08/11/22 16:10 IMPRESSION: There are no acute findings. Electronically Signed: Evans Goode MD at 16:26 EDT Reading Location ID and State: [facility] / [place] , Service support , EKG Initial EKG: Attestation: I personally reviewed and interpreted this EKG as follows: (EKG interpretation. Irregular regular rhythm at 130 beats a minute. Normal axis deviation. No acute ST elevation, no acute ectopy. QTc of 538. Patient has a history of A-fib) Differential Diagnosis Chest pain/SOB: ACS and CHF Differential Diagnosis: Dehydration, CHF, atrial fibrillation, atrial flutter, electrolyte abnormality, diarrhea, pneumonia, Treatment and Re-Evaluation Comments:: Patient was initially given Cathflo to help open up her PICC line. This worked somewhat. Patient had attempts by IV by nursing staff without success. There was a delay in receiving the IV fluids because the PICC line was flowing slowly. A second order Cathflo was ordered, and they will recheck the PICC line. Patient did have a second IV placed to the right hand. Patient did receive her IV fluids, heart rate improved from the 140s into the 120s. Patient will be given a second liter of IV fluid along with 1 dose of Lopressor. Patient looks very well, does not want to be admitted to the hospital unless absolutely necessary. If patient's heart rate improves, we will discharge this patient and she will continue home medications. Patient's PICC line is working at this time. 2129 I spoke to hospitalist Dr Delvalle. We are going to attempt to give IV Cardizem bolus 10 mg now, wait 30 minutes and repeat IV Cardizem bolus again if needed. If this works, patient may be disposition. If not, patient will be admitted for Cardizem drip. Patient is still completely asymptomatic, patient reminded me again that she had no symptoms when she came to the ER today. Patient's mouth is dry, that is chronic, patient is drinking water with no difficulty. Patient is aware of this plan right now, nursing nurse staff community health for Bed 19 is aware as well 2204 initial IV Cardizem 10mg bolus was given, patient still maintaining heart rate in the 130s?140s. Patient will be given a second IV Cardizem 10 mg bolus. We will wait another 20 minutes or so to see if this helps with heart rate, otherwise patient will be admitted to . He has been aware of the patient. If Cardizem drip will be needed, Dr. Delvalle will place the order. Dr. Manzano will place for admission and finish the final disposition. Critical care time 35 minutes exclusive from separate billable procedures that were performed. The following was considered in the determination of critical care but not limited to the level of medical decision making, intensive cardiac and/or respiratory monitoring, frequent vital sign monitoring, evaluation of laboratory studies, evaluation of radiographic studies, oxygen monitoring, and constant monitoring and speaking to family at bedside Critical Care Time Critical care time (excluding procedures): 30-74 minutes and - (Critical care time 35 minutes exclusive from separate billable procedures that were performed. The following was considered in the determination of critical care but not limited to the level of medical decision making, intensive cardiac and/or respiratory monitoring, frequent vital sign monitoring, ) Discharge Plan Triage Chief Complaint: Palpitations Other Complaint: General Illness ED Provider: Monty Mota Dx/Rx/DC Orders Clinical Impression: Dehydration, Occluded PICC line, Atrial fib/flutter, transient, Diarrhea Prescriptions: No Action acetaminophen 325 mg capsule 650 mg PO Q4H PRN (Reason: Pain) cholecalciferol (vitamin D3) 50 mcg (2,000 unit) capsule 50 mcg PO DAILY ferrous sulfate 325 mg (65 mg iron) tablet 325 mg PO DAILY ascorbic acid (vitamin C) [Vitamin C] 500 mg Tablet 500 mg PO DAILY multivitamin Tablet 1 tab PO DAILY amlodipine 10 mg tablet 10 mg PO DAILY vancomycin in dextrose 5 % 1 gram/200 mL Piggyback 1,000 mg IV Q24H 40 Days Qty: 8000 0RF Rx Instructions: stop date 08/23/22 dx: finger osteomyelitis weekly bmp, cbc, esr, and vanc trough. Fax to [phone] routine picc care per protocol ciprofloxacin HCl 500 mg Tablet 500 mg PO BID 10 Days Qty: 20 0RF aspirin 81 mg Tablet,Chewable 81 mg PO BREAKFAST Qty: 0 0RF Prolia 60 mg/mL syringe 60 mg subcut [id number] Qty: 1 1RF glimepiride 4 mg tablet 4 mg PO BID 90 Days Qty: 180 3RF losartan 50 mg tablet 50 mg PO BID Qty: 180 3RF oxybutynin chloride 15 mg tablet extended release 24hr 15 mg PO BID Qty: 180 1RF sertraline [Zoloft] 100 mg tablet 100 mg PO DAILY Qty: 90 0RF metoprolol tartrate 50 mg tablet 50 mg PO BID Qty: 180 1RF simvastatin 20 mg tablet 20 mg PO QHS Qty: 90 3RF metformin 1,000 mg tablet 1,000 mg PO BID Qty: 180 3RF warfarin [Jantoven] 2.5 mg tablet 2.5 mg PO DINNER Qty: 30 0RF Primary Care Provider: Sulma Reagan Referrals: Sulma Reagan MD [Primary Care Provider] - Disposition Disposition: Acute Care Hospital
--- NOTE | 2022-08-11 17:23 | ED.RN ---
THIS RN WAS ABLE TO DRAW BACK BLOOD FROM PT PICC LINE POST ACTIVASE ADMINISTRATION. BLOOD WORK OBTAINED. PICC LINE FLUSHED WITH 20 ML NORMAL SALINE, WITH SLIGHT RESISTANCE, BUT DRAWS BLOOD BACK EASILY.
[2022-08-11 17:27] LABS: Absolute Lymphocyte Count 0.88 X10^3/uL (0.83-4.51); Absolute Neutrophil Count 2.7 X10^3/uL (2.0-7.7); Basophil# 0.03 X10^3/uL; Basophil% 0.7 % (0-1); Eosinophil# 0.19 X10^3/uL; Eosinophils% 4.4 % (0-5); Lymphocyte # 0.88 X10^3/ul (0.83-4.51); Lymphocyte % 20.6 % (19-41); Mean Corp Hgb Conc 31.4 g/dL (32-36); Mean Corpuscular Hgb 27.5 pg (27.0-32.0); Mean Corpuscular Volume 87.5 fL (81-99); Mean Platelet Vol. 9.9 fl (6.2-12.0); Monocyte# 0.43 X10^3/uL; NRBC Flagged by Analyzer 0 % (0-5); Neutrophil # 2.74 X10^3/uL (2.7-7.7); Neutrophil % 64.1 % (47-70); Platelet Count 256 K/mm3 (150-450); RBC Distribution Width CV 15.7 % (11.6-14.6); RBC Distribution Width SD 49.7 fl (35.1-43.9); White Blood Count 4.3 K/mm3 (4.4-11.0)
[2022-08-11] MEDS: 0.9% Normal Saline 1,000 ML 1000 ML IV (17:30)
[2022-08-11 17:36] VITALS: PULSE 134
[2022-08-11 17:36] LABS: International Normalized Ratio 1.5; Prothrombin Time (Protime)PT. 17.3 SECONDS (11.7-14.9)
[2022-08-11 17:48] LABS: Anion Gap 6 (5-15); BUN 45 mg/dL (7-18); BUN/Creat Ratio 33.8 RATIO (10-20); Calcium,Total 9.6 mg/dL (8.5-10.1); Chloride 108 mmol/L (98-107); Creatinine, Serum 1.33 mg/dL (0.55-1.02); EST Glomerular Filtration Rate 42 mL/min (>60); Est Glom Filt Rate - Afr Amer 51 mL/min (>60); Glucose 169 mg/dL (74-106); Potassium 5.1 mmol/L (3.5-5.1); Sodium Level 138 mmol/L (136-145); Troponin-I HS (w/2H Reflex) 10 pg/mL (3.0-54.0)
[2022-08-11 18:11] LABS: BNP,B-Type NATRIURETIC PEPTIDE 750.3 pg/mL (0-100)
[2022-08-11] MEDS: 0.9% Normal Saline 1,000 ML 999 ML IV (19:41)
--- NOTE | 2022-08-11 20:22 | ED.RN ---
CATH MELLY IN PATIENT PICC FOR ROUGHLY 1 HR. THIS NURSE WENT IN THE FLUSHED PICC, ABLE TO DRAW BACK 10 ML OF BLOOD WITH MINIMAL ASSISTANCE. PICC LINE FLUSHED WITH 20 ML NORMAL SALINE WITH MINIMAL EFFORT. NO PAIN WITH SITE. PICC LINE WAS FLUSHED AND DRAW BACK NOTED. NORMAL SALINE BOLUS ATTACHED TO PATIENT AND FLOWING IN WITH NO ISSUES.
[2022-08-11 20:25] VITALS: BP 137/104; PULSE 135; RESP 23; O2SAT 98
[2022-08-11] MEDS: Metoprolol Tartrate 5 MG/5 ML Vial IV (20:36)
[2022-08-11 21:00] VITALS: BP 138/97; PULSE 135; RESP 28; O2SAT 98
[2022-08-11] MEDS: dilTIAZem 25 MG/5 ML Vial 10 MG IV BOLUS ×2 (21:45→22:58)
--- NOTE | 2022-08-11 22:32 | PCM.HP.STD ---
HPI - General General Date of Admission: 08/11/22 Date of Service: 08/11/22 Chief Complaint: Clogged PICC line and tachycardia HPI Narrative JOSELINE RIDDLE, is a 72 F with a significant history of diabetes mellitus; who presents to emergency department because of a clogged PICC line because of tachycardia. 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 Patient's home health nurse could not give her antibiotics IV because of clogged PICC line. On presentation patient was found to be in A flutter. However patient did not feel the A flutter. Patient wanted to be discharged home from the ED. However multiple IV intervention to control her heart rate was unsuccessful. [facility] Medical History Abnormal mammogram of right breast Abnormal mammogram of right breast Abscess of right middle finger Acute kidney injury Afib Alcohol use Anemia Anemia Anxiety Anxiety and depression Arthritis Atrial fibrillation Back pain Bacteremia Breast lump Burn injury of skin of finger Cardiology follow-up encounter Chronic cough COVID-19 vaccine series completed CPAP (continuous positive airway pressure) dependence CVA (cerebral vascular accident) Depression Depression with anxiety Diabetes Dietary restriction DKA (diabetic ketoacidoses) Essential hypertension Finger infection Flu vaccine need Former smoker Health care maintenance High cholesterol History of echocardiogram History of edema History of stress test History of UTI HTN (hypertension) Hyperlipidemia Hypertension Irregular heartbeat Kidney disease 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 (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 MRSA infection 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 without evidence of necrosis Non-rheumatic mitral valve stenosis Nonrheumatic aortic (valve) stenosis Osteoarthritis Osteomyelitis of finger of right hand Osteoporosis Overactive bladder Pancreatitis Paroxysmal atrial fibrillation Post-menopausal Preoperative evaluation to rule out surgical contraindication Sleep apnea Urinary incontinence, overflow Venous insufficiency Vision problems Walker as ambulation aid Weakness Home Medications ferrous sulfate 325 mg (65 mg iron) tablet 325 mg PO DAILY Supplement 01/27/21 [History Last Taken 07/08/22] ascorbic acid (vitamin C) 500 mg tablet (Vitamin C) 500 mg PO DAILY vitamin 08/21/21 [History Last Taken 07/08/22] acetaminophen 325 mg capsule 650 mg PO Q4H PRN Pain 12/02/21 [History Last Taken 07/08/22] cholecalciferol (vitamin D3) 50 mcg (2,000 unit) capsule 50 mcg PO DAILY vitamin 03/03/22 [History Last Taken 07/08/22] glimepiride 4 mg tablet 4 mg PO BID dm 3 months #180 tabs 06/24/22 [Rx Last Taken 07/09/22] losartan 50 mg tablet 50 mg PO BID bp #180 tabs 06/24/22 [Rx Last Taken 07/09/22] oxybutynin chloride 15 mg tablet,extended release 24 hr 15 mg PO BID bladder #180 tabs 06/24/22 [Rx Last Taken 07/09/22] sertraline 100 mg tablet (Zoloft) 100 mg PO DAILY anxiety #90 tabs 06/24/22 [Rx Last Taken 07/08/22] metoprolol tartrate 50 mg tablet 50 mg PO BID heart #180 tabs 06/28/22 [Rx Last Taken 07/09/22] metformin 1,000 mg tablet 1,000 mg PO BID DM #180 tabs 07/06/22 [Rx Last Taken 07/09/22] simvastatin 20 mg tablet 20 mg PO QHS cholesterol #90 tabs 07/06/22 [Rx Last Taken 07/08/22] amlodipine 10 mg tablet 10 mg PO DAILY BP 07/09/22 [History Last Taken 07/09/22] multivitamin 1 tab PO DAILY SUPPLEMENT 07/09/22 [History Last Taken 07/08/22] aspirin 81 mg chewable tablet 81 mg PO BREAKFAST Heart 08/11/22 [History Last Taken Unknown] vancomycin 1 gram/200 mL in dextrose 5 % intravenous piggyback 1,000 mg IV Q24H Antibiotic 08/11/22 [History Last Taken Unknown] warfarin 2.5 mg tablet (Jantoven) 2.5 mg PO DINNER Blood Thinner 08/11/22 [History Last Taken Unknown] Allergy/AdvReac Type Severity Reaction Status Date / Time fosinopril [From Monopril] Allergy Unknown unknown Verified 08/11/22 15:40 pioglitazone AdvReac Other Verified 08/11/22 15:40 Family History Father Diabetes Hypertension High cholesterol Heart disease Melanoma Surgical History History of back surgery History of carpal tunnel release History of hand surgery History of hysterectomy History of left elbow replacement History of surgical amputation of finger of right hand Hx of colonoscopy S/P hysterectomy S/P ORIF (open reduction internal fixation) fracture Status post surgical amputation of finger of right hand Social History household members: none Smoking Status: Never smoker how long ago did patient quit smokin years ago alcohol intake: current alcohol intake frequency: holidays/special occasions only substance use type: does not use what type of physical activity do you participate in: other details: aquasize ROS ROS Narrative Pertinent positives and pertinent negatives as noted in HPI. All other systems were reviewed and are negative Vital Signs Vital Signs Vital Signs: 08/11/22 15:37 08/11/22 15:54 08/11/22 16:02 Temperature 96.6 F L Temperature Source Temporal Pulse Rate 133 H Respiratory Rate 18 Respiratory Effort Normal Non-Labored Blood Pressure 139/88 H Blood Pressure Mean 105 Pulse Ox 97 Oxygen Delivery Method Room Air Room Air 08/11/22 17:36 08/11/22 20:25 08/11/22 21:00 Temperature Temperature Source Pulse Rate 134 H 135 H 135 H Respiratory Rate 23 H 28 H Respiratory Effort Blood Pressure 137/104 H 138/97 H Blood Pressure Mean 115 110 Pulse Ox 98 98 Oxygen Delivery Method Room Air Room Air Weight Weight: 85.5 kg Body Mass Index (BMI) 35.6 Physical Exam Narrative Physical exam: General: Well-nourished, well-developed. Head: Normocephalic, atraumatic, no tenderness Eyes: Vision is grossly intact. EOMI ENT, no trauma, mildly dry with crevices. No rhinorrhea Neck: Nontender, No thyromegaly. CVS: Irregularly irregular rate and rhythm. S1-S2 present. Respiratory : clear to auscultation bilaterally, chest wall nontender Abdomen: Soft, nontender, nondistended, normal bowel sounds, no masses : Deferred Back: Nontender, no CVA tenderness. Extremities: Loss of intermediate phalanx of right middle finger; ulcer. Abrasions on bilateral lorenzo; left worse than right. Skin: Normal color, no trauma. Neuro: Alert, oriented, cranial nerves II through XII grossly intact. Psychiatry: Normal mood. Normal affect. Not depressed. Not anxious. Results Lab / Micro Data Result Diagrams: 08/11/22 17:06 08/11/22 17:06 Labs: Laboratory Results - last 24 hr 08/11/22 17:06: WBC 4.3 L, RBC 4.00 L, Hgb 11.0 L, Hct 35.0 L, MCV 87.5, MCH 27.5, MCHC 31.4 L, RDW Std Deviation 49.7 H, RDW Coeff of Zee 15.7 H, Plt Count 256, MPV 9.9, Immature Gran % (Auto) 0.200, Neut % (Auto) 64.1, Lymph % (Auto) 20.6, [place] % (Auto) 10.0, Eos % (Auto) 4.4, Baso % (Auto) 0.7, Absolute Neuts (auto) 2.7, Absolute Lymphs (auto) 0.88, Nucleated RBC % 0 08/11/22 17:06: Sodium 138, Potassium 5.1, Chloride 108 H, Carbon Dioxide 24.0, Anion Gap 6, BUN 45 H, Creatinine 1.33 H, Estim Creat Clear Calc 29.70, Est GFR (MDRD) Af Amer 51 L, Est GFR (MDRD) Non-Af 42 L, BUN/Creatinine Ratio 33.8 H, Glucose 169 H, Calcium 9.6, Troponin I High Sens 10 08/11/22 17:06: PT 17.3 H, INR 1.5 08/11/22 17:06: B-Natriuretic Peptide 750.3 H Radiology Impression Chest X-Ray 08/11/22 16:10 IMPRESSION: There are no acute findings. 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 Cardizem drip started. Titrate Cardizem drip. Place on PCU stepdown. Echocardiogram on 07/10/2022 was reviewed. Echocardiogram showed EF of 60% with stage II diastolic dysfunction. Normal left atrium. Normal right atrium. Mild 1+ eccentric mitral valve insufficiency. Mild tricuspid valve insufficiency. Pulm artery systolic pressure was 38 mmHg. INR is subtherapeutic. Lovenox subcutaneous ordered. Escalate dose of home warfarin. Potassium is normal. Magnesium order written as 2.1. Trend BMP. Heart failure with preserved ejection fraction BNP of 750.3. Last BNP on file was 270.6. Radiologist impression of chest x-ray: No acute findings. Chest x-ray was visualized and I agree with cardiology interpretation. Stable. MRSA osteomyelitis of right finger White count mildly low at 4300. Stable Vancomycin continued Chronic normocytic anemia Stable Occluded PICC line Resolved at the ED with alteplase. CKD stage IIIa Stable Trend BMP. Diabetes mellitus Blood glucoses is . DVT prophylaxis Subcutaneous Lovenox and warfarin for A-fib as above. Charges/Coding Visit Charges Inpatient E&M: 58842 Init Hosp L3
[2022-08-11 22:47] LABS: Magnesium 2.1 mg/dL (1.6-2.6)
[2022-08-11 23:40] VITALS: BP 116/85; PULSE 138; RESP 23; TEMP 36.8; O2SAT 95
[2022-08-11 23:48] VITALS: BP 116/85; PULSE 140; RESP 25; TEMP 36.8; O2SAT 94
[2022-08-12] VITALS (32 sets, daily range): BP systolic 83–145; BP diastolic 47–109; PULSE 71–139; RESP 18–26; TEMP 36.1–37.1; O2SAT 87–99; BMI 35.6
--- NOTE | 2022-08-12 00:32 | PCM.RX.CS ---
Consult Pharmacy has been consulted to manage selected antiobiotic: Vancomycin Type of Consult: New start Suspected Infection: Osteomyelitis Prior Doses of Antibiotics Received/Current Regimen: Medications Vancomycin HCl 1,250 mg/ (Sodium Chloride) 275 mls @ 167 mls/hr IV Q24H ROSALIND Vancomycin HCl 1,250 mg/ (Sodium Chloride) 275 mls @ 167 mls/hr IV X1 ONE Stop: 08/12/22 01:08 Last Admin: 08/11/22 23:40 Dose: 167 mls/hr Labs: Sodium 138 mmol/L (136-145) 08/11/22 17:06 Potassium 5.1 mmol/L (3.5-5.1) 08/11/22 17:06 Chloride 108 mmol/L (98-107) H 08/11/22 17:06 Carbon Dioxide 24.0 mmol/L (21.0-32.0) 08/11/22 17:06 Anion Gap 6 (5-15) 08/11/22 17:06 BUN 45 mg/dL (7-18) H 08/11/22 17:06 Creatinine 1.33 mg/dL (0.55-1.02) H 08/11/22 17:06 Est GFR (MDRD) Af Amer 51 mL/min (>60) L 08/11/22 17:06 Est GFR (MDRD) Non-Af 42 mL/min (>60) L 08/11/22 17:06 BUN/Creatinine Ratio 33.8 RATIO (10-20) H 08/11/22 17:06 Glucose 169 mg/dL (74-106) H 08/11/22 17:06 Weight used for dosin.5 kg Estimated Creatinine Clearance: 39 Goal Trough: 15-20 mcg/mL Pharmacy Plan for Drug Dosing: Pharmacy Service will continue to monitor and adjust dosing as required. Follow-Up Labs: Trough Vancomycin Labs to be done on [date and time ordered]: 08/13/22 @2300
[2022-08-12] MEDS: Enoxaparin 100 MG/ML Syringe 90 MG SC (01:18)
[2022-08-12 01:51] LABS: Bedside Glucose 109 mg/dL (74-106)
[2022-08-12 05:02] LABS: Absolute Lymphocyte Count 1.54 X10^3/uL (0.83-4.51); Absolute Neutrophil Count 2.2 X10^3/uL (2.0-7.7); Basophil# 0.05 X10^3/uL; Basophil% 1.1 % (0-1); Eosinophil# 0.31 X10^3/uL; Eosinophils% 6.7 % (0-5); Hematocrit 30.9 % (37-47); Hemoglobin 9.7 g/dL (12.0-15.0); Lymphocyte # 1.54 X10^3/ul (0.83-4.51); Lymphocyte % 33.4 % (19-41); Mean Corp Hgb Conc 31.4 g/dL (32-36); Mean Corpuscular Hgb 27.6 pg (27.0-32.0); Mean Platelet Vol. 9.8 fl (6.2-12.0); Monocyte# 0.46 X10^3/uL; NRBC Flagged by Analyzer 0 % (0-5); Neutrophil # 2.23 X10^3/uL (2.7-7.7); Neutrophil % 48.4 % (47-70); Platelet Count 221 K/mm3 (150-450); RBC Distribution Width CV 15.9 % (11.6-14.6); RBC Distribution Width SD 50.9 fl (35.1-43.9); Red Blood Count 3.51 M/mm3 (4.2-5.4); White Blood Count 4.6 K/mm3 (4.4-11.0)
[2022-08-12 05:30] LABS: Anion Gap 7 (5-15); BUN 35 mg/dL (7-18); BUN/Creat Ratio 32.7 RATIO (10-20); Calcium,Total 8.6 mg/dL (8.5-10.1); Chloride 114 mmol/L (98-107); Creatinine, Serum 1.07 mg/dL (0.55-1.02); EST Glomerular Filtration Rate 54 mL/min (>60); Est Glom Filt Rate - Afr Amer 65 mL/min (>60); Estimated Creatinine Clearance 36.92 ml/min; Glucose 160 mg/dL (74-106); Potassium 3.9 mmol/L (3.5-5.1); Sodium Level 141 mmol/L (136-145)
[2022-08-12 05:32] LABS: International Normalized Ratio 1.8; Prothrombin Time (Protime)PT. 20.6 SECONDS (11.7-14.9)
[2022-08-12 07:20] LABS: Bedside Glucose 118 mg/dL (74-106)
--- NOTE | 2022-08-12 08:00 | EKG12_ITS ---
Test Reason : Blood Pressure : / mmHG Vent. Rate : 071 BPM Atrial Rate : 284 BPM P-R Int : 000 ms QRS Dur : 072 ms QT Int : 412 ms P-R-T Axes : 094 034 022 degrees QTc Int : 447 ms Atrial flutter with 4:1 A-V conduction Abnormal ECG When compared with ECG of 11-AUG-2022 15:48, MANUAL COMPARISON REQUIRED, DATA IS UNCONFIRMED Confirmed by LESLY CALLOWAY, SOCORRO ([id number]), general expeditor AMALIA MJEIA ([id number] on 08/17/2022 7:49:20 AM Referred By: BLAKE Confirmed By:LAURA GRACE MD
[2022-08-12] MEDS: Aspirin 81 MG TAB.CHEW PO (08:11)
[2022-08-12] MEDS: Glucerna Shake 120 ML LIQUID PO (08:11)
[2022-08-12] MEDS: Glimepiride 4 MG Tablet PO ×2 (08:11→17:07)
[2022-08-12] MEDS: Ferrous Sulfate 325 MG Tablet PO (08:11)
[2022-08-12] MEDS: Losartan Potassium 50 MG Tablet PO ×2 (08:11→21:00)
[2022-08-12] MEDS: Tolterodine Tartrate 4 MG CAP.SA PO (08:11)
[2022-08-12] MEDS: Multivitamins,Therapeutic Tablet 1 TABLET PO (08:11)
[2022-08-12] MEDS: Cholecalciferol (VIT D3) 25 MCG TABLET (1,000 UNITS) 50 MCG PO (08:12)
[2022-08-12] MEDS: Sertraline 100 MG Tablet PO (08:12)
[2022-08-12] MEDS: Ascorbic Acid 500 MG Tablet PO (08:12)
[2022-08-12] MEDS: amLODIPine 10 MG Tablet PO (08:12)
--- NOTE | 2022-08-12 08:50 | PN.HOSP_ITS ---
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 Denies any chest pain or palpitations. Objective Data Objective Data Vital Signs: Vital Signs Temp Pulse Resp BP Pulse Ox O2 Del Method O2 Flow Rate 37.1 C 72 19 H 116/67 97 Nasal Cannula 2 08/12/22 08:00 08/12/22 08:00 08/12/22 08:00 08/12/22 08:00 08/12/22 08:00 08/12/22 08:00 08/12/22 08:00 Oxygen Flow Rate (L/min) 2 Oxygen Delivery Method Nasal Cannula Weight: 85.5 kg Body Mass Index (BMI) 35.6 Intake & Output: Intake and Output for Last 24 Hours 08/10/22 08/11/22 08/12/22 23:59 23:59 23:59 Intake Total 1999 635.25 / 635.25 Output Total 400 / 400 Balance 1999 235.25 / 235.25 Lab / Micro Data Result Diagrams: 08/12/22 04:54 08/12/22 04:54 Labs: Laboratory Results - last 24 hr 08/11/22 17:06: WBC 4.3 L, RBC 4.00 L, Hgb 11.0 L, Hct 35.0 L, MCV 87.5, MCH 27.5, MCHC 31.4 L, RDW Std Deviation 49.7 H, RDW Coeff of Zee 15.7 H, Plt Count 256, MPV 9.9, Immature Gran % (Auto) 0.200, Neut % (Auto) 64.1, Lymph % (Auto) 2 0.6, [place] % (Auto) 10.0, Eos % (Auto) 4.4, Baso % (Auto) 0.7, Absolute Neuts (auto) 2.7, Absolute Lymphs (auto) 0.88, Nucleated RBC % 0 08/11/22 17:06: Sodium 138, Potassium 5.1, Chloride 108 H, Carbon Dioxide 24.0, Anion Gap 6, BUN 45 H, Creatinine 1.33 H, Estim Creat Clear Calc 29.70, Est GFR (MDRD) Af Amer 51 L, Est GFR (MDRD) Non-Af 42 L, BUN/Creatinine Ratio 33.8 H, Glucose 169 H, Calcium 9.6, Troponin I High Sens 10 08/11/22 17:06: PT 17.3 H, INR 1.5 08/11/22 17:06: B-Natriuretic Peptide 750.3 H 08/11/22 22:31: Magnesium 2.1 08/12/22 01:17: POC Glucose 109 H 08/12/22 04:54: WBC 4.6, RBC 3.51 L, Hgb 9.7 L, Hct 30.9 L, MCV 88.0, MCH 27.6, MCHC 31.4 L, RDW Std Deviation 50.9 H, RDW Coeff of Zee 15.9 H, Plt Count 221, MPV 9.8, Immature Gran % (Auto) 0.400, Neut % (Auto) 48.4, Lymph % (Auto) 33.4, [place] % (Auto) 10.0, Eos % (Auto) 6.7 H, Baso % (Auto) 1.1 H, Absolute Neuts (auto) 2.2, Absolute Lymphs (auto) 1.54, Nucleated RBC % 0 08/12/22 04:54: Sodium 141, Potassium 3.9, Chloride 114 H, Carbon Dioxide 20.0 L , Anion Gap 7, BUN 35 H, Creatinine 1.07 H, Estim Creat Clear Calc 36.92, Est GFR (MDRD) Af Amer 65, Est GFR (MDRD) Non-Af 54 L, BUN/Creatinine Ratio 32.7 H, Glucose 160 H, Calcium 8.6 08/12/22 04:54: PT 20.6 H, INR 1.8 08/12/22 06:51: POC Glucose 118 H Radiography Diagnostic Testing: Radiology Impression Chest X-Ray 08/11/22 16:10 IMPRESSION: There are no acute findings. Electronically Signed: Evans Goode MD at 16:26 EDT , Physical Exam Const alert and no apparent distress HEENT head/scalp atraumatic and moist oral mucous membranes Resp normal respiratory effort, no retractions, no use of accessory muscles and clear to auscultation bilaterally Cardio regular rate, regular rhythm, S1 normal heart sound and S2 normal heart sound GI normal to inspection, nondistended, normoactive bowel sounds, soft to palpation, non-tender and non-distended Assessment & Plan Assessment/Plan (1) Atrial flutter with rapid ventricular response: PLAN: Atrial flutter with rapid ventricular response/paroxysmal atrial fibrillation with RVR/hypercoagulable state due to atrial fibrillation Despite metoprolol IV, and Cardizem IV bolus x2 patient still remain in a flutter with RVR/A-fib with RVR. Cardizem drip started. Titrate Cardizem drip. Place on PCU stepdown. Echocardiogram on 07/10/2022 was reviewed. Echocardiogram showed EF of 60% with stage II diastolic dysfunction. Normal left atrium. Normal right atrium. Mild 1+ eccentric mitral valve insufficiency. Mild tricuspid valve insufficiency. Pulm artery systolic pressure was 38 mmHg. INR is subtherapeutic. Lovenox subcutaneous ordered. Escalate dose of home warfarin. Potassium is normal. Magnesium order written as 2.1. Heart rate overall improved. Try going down on the diltiazem drip and the heart rate went up to 120s. Will try to resume the metoprolol and see about weaning off of the diltiazem drip. If unable to do so then may need cardiology input. (2) Occluded PICC line: PLAN: Occluded PICC line: Resolved at the ED with alteplase. PLAN: Plan Chronic conditions: * Heart failure with preserved ejection fraction: BNP of 750.3. Last BNP on file was 270.6. Radiologist impression of chest x-ray: No acute findings. Chest x-ray was visualized and I agree with cardiology interpretation. Stable. * MRSA osteomyelitis of right finger: White count mildly low at 4300. Stable. Vancomycin continued * Chronic normocytic anemia: Stable * CKD stage IIIa Stable Trend BMP. * Diabetes mellitus type II: Stable. Continue glimepiride and metformine DVT prophylaxis Subcutaneous Lovenox and warfarin for A-fib as above. Charges/Coding Visit Charges Inpatient E&M: 75457 Subs Hosp L2
--- NOTE | 2022-08-12 11:58 | WOUNDNOTE ---
wound photo: left lorenzo
[2022-08-12] MEDS: Metoprolol Tartrate 50 MG Tablet PO ×2 (14:30→21:01)
[2022-08-12 16:35] LABS: Bedside Glucose 83 mg/dL (74-106)
[2022-08-12] MEDS: Atorvastatin Calcium 10 MG Tablet PO (21:00)
[2022-08-12] MEDS: dilTIAZem 25 MG/5 ML Vial 20 MG IV BOLUS (22:02)
[2022-08-13] VITALS (31 sets, daily range): BP systolic 86–152; BP diastolic 56–98; PULSE 67–143; RESP 16–27; TEMP 36.6–37; O2SAT 92–98
[2022-08-13 01:31] LABS: Bedside Glucose 112 mg/dL (74-106)
[2022-08-13] MEDS: Metoprolol Tartrate 5 MG/5 ML Vial IV (05:04)
[2022-08-13] MEDS: Metoprolol Tartrate 25 MG Tablet PO (05:24)
[2022-08-13 06:28] LABS: Prothrombin Time (Protime)PT. 22.5 SECONDS (11.7-14.9)
[2022-08-13 07:10] LABS: Bedside Glucose 153 mg/dL (74-106)
--- NOTE | 2022-08-13 08:22 | PN.HOSP_ITS ---
Reason for Visit Reason for Visit: Diagnoses Methicillin resistant Staphylococcus aureus infection, unspecified site () Other thrombophilia (08/11/22) Paroxysmal atrial fibrillation (08/11/22) Unspecified atrial fibrillation (08/11/22) Unspecified atrial flutter (08/11/22) Non-pressure chronic ulcer of skin of other sites with unspecified severity (08/11/22) Osteomyelitis, unspecified (08/11/22) Other specified complication of vascular prosthetic devices, implants and grafts, initial encounter (08/11/22) [facility] (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 (08/11/22) Subjective Subjective Had to be placed back on diltiazem gtt due to aflutter with RVR. Objective Data Objective Data Vital Signs: Vital Signs Temp Pulse Resp BP Pulse Ox O2 Del Method O2 Flow Rate 36.9 C 142 H 21 H 127/88 H 94 Nasal Cannula 2 08/13/22 07:00 08/13/22 07:24 08/13/22 07:24 08/13/22 07:24 08/13/22 07:24 08/13/22 07:24 08/13/22 07:24 Oxygen Flow Rate (L/min) 2 Oxygen Delivery Method Nasal Cannula Weight: 85.5 kg Body Mass Index (BMI) 35.6 Intake & Output: Intake and Output for Last 24 Hours 08/11/22 08/12/22 08/13/22 23:59 23:59 23:59 Intake Total 1999 751.42 / 751.42 275 / 275 Output Total 2100 / 2100 600 / 600 Balance 1999 -1348.58 / -1348.58 -325 / -325 Lab / Micro Data Result Diagrams: 08/12/22 04:54 08/12/22 04:54 Labs: Laboratory Results - last 24 hr 08/12/22 16:02: POC Glucose 83 08/12/22 22:27: POC Glucose 112 H 08/13/22 05:23: PT 22.5 H, INR 2.0 08/13/22 06:42: POC Glucose 153 H Physical Exam Const alert and no apparent distress HEENT head/scalp atraumatic Neck no lymphadenopathy Resp normal respiratory effort, no retractions, no use of accessory muscles and clear to auscultation bilaterally Cardio regular rate, regular rhythm, S1 normal heart sound and S2 normal heart sound GI normal to inspection, nondistended, normoactive bowel sounds, soft to palpation and non-tender Assessment & Plan Assessment/Plan (1) Atrial flutter with rapid ventricular response: PLAN: Atrial flutter with rapid ventricular response/paroxysmal atrial fibrillation with RVR/hypercoagulable state due to atrial fibrillation Despite metoprolol IV, and Cardizem IV bolus x2 patient still remain in a flutter with RVR/A-fib with RVR. Cardizem drip started. Titrate Cardizem drip. Echocardiogram on 07/10/2022 was reviewed. Echocardiogram showed EF of 60% with stage II diastolic dysfunction. Normal left atrium. Normal right atrium. Mild 1+ eccentric mitral valve insufficiency. Mild tricuspid valve insufficiency. Pulm artery systolic pressure was 38 mmHg. INR is therapeutic now. continue warfarin. 08/12: Restarted metoprolol tartrate and weaned off of diltiazem drip. Patient subsequently developed A-fib with RVR the morning of the and had to be restarted on the diltiazem drip. 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 Stable Vancomycin continued PLAN: Plan Chronic conditions: * Heart failure with preserved ejection fraction: BNP of 750.3. Last BNP on file was 270.6. Radiologist impression of chest x-ray: No acute findings. Chest x-ray was visualized and I agree with cardiology interpretation. Stable. * Chronic normocytic anemia Stable * CKD stage IIIa Stable Trend BMP. * Diabetes mellitus Blood glucoses is . DVT prophylaxis: not indicated as pt is anticoagulated. Charges/Coding Visit Charges Inpatient E&M: 65428 Subs Hosp L2
[2022-08-13] MEDS: Cholecalciferol (VIT D3) 25 MCG TABLET (1,000 UNITS) 50 MCG PO (09:32)
[2022-08-13] MEDS: Ferrous Sulfate 325 MG Tablet PO (09:32)
[2022-08-13] MEDS: Sertraline 100 MG Tablet PO (09:32)
[2022-08-13] MEDS: amLODIPine 10 MG Tablet PO (09:33)
[2022-08-13] MEDS: Ascorbic Acid 500 MG Tablet PO (09:33)
[2022-08-13] MEDS: Multivitamins,Therapeutic Tablet 1 TABLET PO (09:34)
[2022-08-13] MEDS: Tolterodine Tartrate 4 MG CAP.SA PO (09:34)
[2022-08-13] MEDS: Glimepiride 4 MG Tablet PO ×2 (09:34→16:37)
[2022-08-13] MEDS: Losartan Potassium 50 MG Tablet PO ×2 (09:34→22:02)
[2022-08-13] MEDS: Metoprolol Tartrate 50 MG Tablet PO ×2 (09:34→22:02)
[2022-08-13] MEDS: Aspirin 81 MG TAB.CHEW PO (09:34)
[2022-08-13 11:30] LABS: Bedside Glucose 265 mg/dL (74-106)
[2022-08-13] MEDS: Insulin Lispro 100 UNIT/ML INSULN.PEN SC ×3 (12:00→22:02)
--- NOTE | 2022-08-13 13:20 | CASEMGMT ---
Therapy is recommending patient go to a [facility] facility for rehab. Therapy said patient would be agreeable to [facility] TCU. SW spoke with Kamla in TCU and they are not able to take patient. HUAN met with patient. Introduced self and role at [facility]. SW told explained therapy's recommendation for rehab. SW let patient know [facility] not [facility] insurance right now. SW asked patient if she would like to give her a list of other facilities that take her insurance. Patient declined and said she is not going to any other [place] [facility] facility. Patient wishes to go home with resumption of home health. Radha Plascencia CAPACITY PLANNING ENGINEERTracy ACEVEDO
--- NOTE | 2022-08-13 14:49 | EKG12_ITS ---
Test Reason : ARRYTHMIA Blood Pressure : / mmHG Vent. Rate : 067 BPM Atrial Rate : 277 BPM P-R Int : 000 ms QRS Dur : 072 ms QT Int : 398 ms P-R-T Axes : 071 030 028 degrees QTc Int : 420 ms Atrial flutter with variable A-V block Abnormal ECG When compared with ECG of 12-AUG-2022 08:12, MANUAL COMPARISON REQUIRED, DATA IS UNCONFIRMED Confirmed by LESLY CALLOWAY, SOCORRO ([id number]), editor index AMALIA MEJIA ([id number]) on 08/18/2022 10:21:19 AM Referred By: CAROLINE Confirmed By:LAURA GRACE MD
--- NOTE | 2022-08-13 15:13 | PCM.CONS.C ---
Assessment & Plan Assessment/Plan (1) Paroxysmal atrial fibrillation with RVR: PLAN: I would recommend 60 mg p.o. every 6 hours of Cardizem. DC IV Cardizem half an hour after starting the p.o. Cardizem. Continue Coumadin. When the patient is ready for discharge the Cardizem can be switched to CD preparation based on the dose she ends up requiring. HPI Consult Data Date of Consult: 08/13/22 HPI Narrative Reason for Consultation: A-fib with RVR HPI Narrative: JOSELINE RIDDLE, is a 72 F who presents with A-fib with RVR. Patient has a history of paroxysmal A-fib. She used to be on Eliquis but due to cost has been switched to Coumadin. She also has a PICC line and is on treatment for osteomyelitis in the right hand. Recent echo revealed preserved EF. Patient was started on IV Cardizem and has converted to sinus rhythm. Review of systems: All systems reviewed. All else is negative except in HPI PFSH Medical History Abnormal mammogram of right breast Abnormal mammogram of right breast Abscess of right middle finger Acute kidney injury Afib Alcohol use Anemia Anemia Anxiety Anxiety and depression Arthritis Atrial fibrillation Back pain Bacteremia Breast lump Burn injury of skin of finger Cardiology follow-up encounter Chronic cough COVID-19 vaccine series completed CPAP (continuous positive airway pressure) dependence CVA (cerebral vascular accident) Depression Depression with anxiety Diabetes Dietary restriction DKA (diabetic ketoacidoses) Essential hypertension Finger infection Flu vaccine need Former smoker Health care maintenance High cholesterol History of echocardiogram History of edema History of stress test History of UTI HTN (hypertension) Hyperlipidemia Hypertension Irregular heartbeat 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 MRSA infection 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 without evidence of necrosis Non-rheumatic mitral valve stenosis Nonrheumatic aortic (valve) stenosis Osteoarthritis Osteomyelitis of finger of right hand Osteoporosis Overactive bladder Pancreatitis Paroxysmal atrial fibrillation Post-menopausal Preoperative evaluation to rule out surgical contraindication Sleep apnea Urinary incontinence, overflow Venous insufficiency Vision problems Walker as ambulation aid Weakness Home Medications ferrous sulfate 325 mg (65 mg iron) tablet 325 mg PO DAILY Supplement 01/27/21 [History Last Taken 07/08/22] ascorbic acid (vitamin C) 500 mg tablet (Vitamin C) 500 mg PO DAILY vitamin 08/21/21 [History Last Taken 07/08/22] acetaminophen 325 mg capsule 650 mg PO PRN PRN Pain 12/02/21 [History Last Taken 07/08/22] cholecalciferol (vitamin D3) 50 mcg (2,000 unit) capsule 50 mcg PO DAILY vitamin 03/03/22 [History Last Taken 07/08/22] glimepiride 4 mg tablet 4 mg PO BID dm 3 months #180 tabs 06/24/22 [Rx Last Taken 07/09/22] losartan 50 mg tablet 50 mg PO BID bp #180 tabs 06/24/22 [Rx Last Taken 07/09/22] oxybutynin chloride 15 mg tablet,extended release 24 hr 15 mg PO BID bladder #180 tabs 06/24/22 [Rx Last Taken 07/09/22] sertraline 100 mg tablet (Zoloft) 100 mg PO DAILY anxiety #90 tabs 06/24/22 [Rx Last Taken 07/08/22] metoprolol tartrate 50 mg tablet 50 mg PO BID heart #180 tabs 06/28/22 [Rx Last Taken 07/09/22] metformin 1,000 mg tablet 1,000 mg PO BID DM #180 tabs 07/06/22 [Rx Last Taken 07/09/22] simvastatin 20 mg tablet 20 mg PO QHS cholesterol #90 tabs 07/06/22 [Rx Last Taken 07/08/22] amlodipine 10 mg tablet 10 mg PO DAILY BP 07/09/22 [History Last Taken 07/09/22] multivitamin 1 tab PO DAILY SUPPLEMENT 07/09/22 [History Last Taken 07/08/22] aspirin 81 mg chewable tablet 81 mg PO BREAKFAST Heart 08/11/22 [History Last Taken Unknown] vancomycin 1 gram/200 mL in dextrose 5 % intravenous piggyback 1,000 mg IV Q24H Antibiotic 08/11/22 [History Last Taken Unknown] warfarin 2.5 mg tablet (Jantoven) 2.5 mg PO DINNER Blood Thinner 08/11/22 [History Last Taken Unknown] Allergy/AdvReac Type Severity Reaction Status Date / Time fosinopril [From Monopril] Allergy Unknown unknown Verified 08/11/22 15:40 pioglitazone AdvReac Other Verified 08/11/22 15:40 Family History (Updated 08/12/22 @ 00:50 by Sarahi Mathew) Father Diabetes High cholesterol Heart disease Melanoma Hypertension Mother Heart disease Brother AIDS (acquired immune deficiency syndrome) Surgical History History of back surgery History of carpal tunnel release History of hand surgery History of hysterectomy History of left elbow replacement History of surgical amputation of finger of right hand Hx of colonoscopy S/P hysterectomy S/P ORIF (open reduction internal fixation) fracture Status post surgical amputation of finger of right hand Social History household members: none Smoking Status: Former smoker how long ago did patient quit smokin years ago alcohol intake: current alcohol intake frequency: holidays/special occasions only substance use type: does not use what type of physical activity do you participate in: other details: aquasize Physical Exam Const alert and oriented x3 HEENT normocephalic Eyes no scleral icterus Resp normal respiratory effort Cardio regular rate and regular rhythm Psych mental status grossly normal Risk Stratification Risk Stratification Applicable: No Charges/Coding Visit Charges Inpatient E&M: 22905 Init Hosp L2 Objective Data Vital Signs: Vital Signs Temp Pulse Resp BP Pulse Ox O2 Del Method O2 Flow Rate 97.9 F 67 27 H 120/68 95 Nasal Cannula 2 08/13/22 08:15 08/13/22 14:22 08/13/22 14:22 08/13/22 14:22 08/13/22 14:22 08/13/22 14:22 08/13/22 14:22 Oxygen Flow Rate (L/min) 2 Oxygen Delivery Method Nasal Cannula Weight: 188 lb 7.924 oz Body Mass Index (BMI) 35.6 Intake & Output: Intake and Output for Last 24 Hours 08/11/22 08/12/22 08/13/22 23:59 23:59 23:59 Intake Total 1999 751.42 / 751.42 364.75 / 364.75 Output Total 2099 600 / 600 Balance 1999 -1348.58 / -1348.58 -235.25 / -235.25 Lab / Micro Data Result Diagrams: 08/12/22 04:54 08/12/22 04:54 Labs: Laboratory Results - last 24 hr 08/12/22 16:02: POC Glucose 83 08/12/22 22:27: POC Glucose 112 H 08/13/22 05:23: PT 22.5 H, INR 2.0 08/13/22 06:42: POC Glucose 153 H 08/13/22 11:10: POC Glucose 265 H Cardiology Labs/Tests 08/13/22 05:23: PT 22.5 H, INR 2.0 Rhythm: EKG: ECHO: Stress Test: Cardiac Cath: PCI: CT Surgery: Holter monitor: EPS: PPM: CXR: Chest CT Scan:
--- NOTE | 2022-08-13 16:13 | CASEMGMT ---
CORNELIO ALMANZAR chart review: Patient was admitted 07/09-07/15/22 for finger wound, bacteremia, CRISTIAN. Patient was discharged home with [facility] and IV Vanco for 6 weeks through [facility]. Patient returned 08/11/22 for palpatiations. Patient admitted with Afib with RVR and currently on IV Cardizem gtt. CORNELIO ALMANZAR back to discuss readmission with patient. Patient states she was taking all her medications as prescribed and went to all her doctor's appointments. CORNELIO ALMANZAR discussed progress with therapy and they are recommending SNF. CORNELIO ALMANZAR discussed this and patient is willing to consider. A list of SNF providers including quality and resource use data and consistent with the patient?s preferred geographical region, medical needs, and insurance network were provided from the [facility] Guide. CM called and updated [facility], per Myra patient will need a new referral for IV ATBs if she discharges home. CM will continue to follow this patient and plan for a safe discharge.
[2022-08-13] MEDS: dilTIAZem 60 MG Tablet PO ×2 (16:37→23:58)
[2022-08-13 17:00] LABS: Bedside Glucose 178 mg/dL (74-106)
[2022-08-13] MEDS: Atorvastatin Calcium 10 MG Tablet PO (22:01)
[2022-08-13 22:26] LABS: Bedside Glucose 153 mg/dL (74-106)
[2022-08-13 23:15] LABS: Vancomycin, Trough Level 20.3 ug/mL (5.0-15.0)
[2022-08-13] MEDS: 0.9% Saline Lock 10 ML Syringe IV (23:58)
[2022-08-14] VITALS (8 sets, daily range): BP systolic 101–147; BP diastolic 59–101; PULSE 70–112; RESP 16–18; TEMP 36.5–36.8; O2SAT 93–98
--- NOTE | 2022-08-14 00:06 | PCM.RX.CS ---
Consult Pharmacy has been consulted to manage selected antiobiotic: Vancomycin Type of Consult: Follow-up Suspected Infection: Osteomyelitis Prior Doses of Antibiotics Received/Current Regimen: Medications Vancomycin HCl 1,250 mg/ (Sodium Chloride) 275 mls @ 167 mls/hr IV Q24H ROSALIND Last Admin: 08/13/22 23:57 Dose: 167 mls/hr Labs: Sodium 141 mmol/L (136-145) 08/12/22 04:54 Potassium 3.9 mmol/L (3.5-5.1) 08/12/22 04:54 Chloride 114 mmol/L (98-107) H 08/12/22 04:54 Carbon Dioxide 20.0 mmol/L (21.0-32.0) L 08/12/22 04:54 Anion Gap 7 (5-15) 08/12/22 04:54 BUN 35 mg/dL (7-18) H 08/12/22 04:54 Creatinine 1.07 mg/dL (0.55-1.02) H 08/12/22 04:54 Est GFR (MDRD) Af Amer 65 mL/min (>60) 08/12/22 04:54 Est GFR (MDRD) Non-Af 54 mL/min (>60) L 08/12/22 04:54 BUN/Creatinine Ratio 32.7 RATIO (10-20) H 08/12/22 04:54 Glucose 160 mg/dL (74-106) H 08/12/22 04:54 Vancomycin Trough 20.3 ug/mL (5.0-15.0) H 08/13/22 22:30 Weight used for dosin.5 kg Estimated Creatinine Clearance: 48.6 Goal Trough: 15-20 mcg/mL Pharmacy Plan for Drug Dosing: Vancomycin trough level was 20.3, nearly within the target range of 15-20. Per dosing calculator, continuing at 1250mg q24h will give an estimated trough of 19.0. Will continue same dosing and re-draw a trough in two days. Pharmacy Service will continue to monitor and adjust dosing as required. Follow-Up Labs: Trough Vancomycin Labs to be done on [date and time ordered]: 08/15/22 @2300
--- NOTE | 2022-08-14 01:30 | NURSING ---
This RN took over patient care at this time.
[2022-08-14] MEDS: dilTIAZem 60 MG Tablet PO ×3 (06:33→18:17)
[2022-08-14 07:30] LABS: Bedside Glucose 85 mg/dL (74-106)
--- NOTE | 2022-08-14 08:00 | PCM.PN.HOSP ---
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 no events overnight. Objective Data Objective Data Vital Signs: Vital Signs Temp Pulse Resp BP Pulse Ox O2 Del Method O2 Flow Rate 36.8 C 70 16 138/87 H 94 Nasal Cannula 2 08/14/22 03:31 08/14/22 03:31 08/14/22 03:31 08/14/22 03:31 08/14/22 03:31 08/14/22 03:32 08/14/22 03:32 Oxygen Flow Rate (L/min) 2 Oxygen Delivery Method Nasal Cannula Weight: 85.5 kg Body Mass Index (BMI) 35.6 Intake & Output: Intake and Output for Last 24 Hours 08/12/22 08/13/22 08/14/22 23:59 23:59 23:59 Intake Total 751.42 / 751.42 391.66 / 591.66 475 / 475 Output Total 2100 / 2100 600 / 600 650 / 650 Balance -1348.58 / -1348.58 -208.34 / -8.34 -175 / -175 Lab / Micro Data Result Diagrams: 08/12/22 04:54 08/12/22 04:54 Labs: Laboratory Results - last 24 hr 08/13/22 11:10: POC Glucose 265 H 08/13/22 16:36: POC Glucose 178 H 08/13/22 21:55: POC Glucose 153 H 08/13/22 22:30: Vancomycin Trough 20.3 H 08/14/22 06:30: POC Glucose 85 Physical Exam Const alert Resp normal respiratory effort, no retractions, no use of accessory muscles and clear to auscultation bilaterally Cardio regular rate, regular rhythm, S1 normal heart sound and S2 normal heart sound GI normal to inspection, nondistended, normoactive bowel sounds, soft to palpation, non-tender and non-distended Extremity normal to inspection Assessment & Plan Assessment/Plan (1) Atrial flutter with rapid ventricular response: PLAN: Atrial flutter with rapid ventricular response/paroxysmal atrial fibrillation with RVR/hypercoagulable state due to atrial fibrillation Despite metoprolol IV, and Cardizem IV bolus x2 patient still remain in a flutter with RVR/A-fib with RVR. Cardizem drip started. Titrate Cardizem drip. Echocardiogram on 07/10/2022 was reviewed. Echocardiogram showed EF of 60% with stage II diastolic dysfunction. Normal left atrium. Normal right atrium. Mild 1+ eccentric mitral valve insufficiency. Mild tricuspid valve insufficiency. Pulm artery systolic pressure was 38 mmHg. INR is therapeutic now. continue warfarin. 08/12: Restarted metoprolol tartrate and weaned off of diltiazem drip. Patient subsequently developed A-fib with RVR the morning of the and had to be restarted on the diltiazem drip. Consult cardiology 08/13: Seen by cardiology who started diltiazem 60 q6h in addition to metoprolol tartate. Dilt gtt turned off. 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 Stable Vancomycin continued PLAN: Plan Chronic conditions: Heart failure with preserved ejection fraction: BNP of 750.3. Last BNP on file was 270.6. Radiologist impression of chest x-ray: No acute findings. Chest x-ray was visualized and I agree with cardiology interpretation. Stable. Chronic normocytic anemia Stable CKD stage IIIa Stable Trend BMP. Diabetes mellitus Blood glucoses is . DVT prophylaxis: not indicated as pt is anticoagulated. Charges/Coding Visit Charges Inpatient E&M: 82492 Subs Hosp L2
[2022-08-14 10:48] LABS: International Normalized Ratio 1.8; Prothrombin Time (Protime)PT. 20.6 SECONDS (11.7-14.9)
[2022-08-14] MEDS: Aspirin 81 MG TAB.CHEW PO (11:04)
[2022-08-14] MEDS: Tolterodine Tartrate 4 MG CAP.SA PO (11:04)
[2022-08-14] MEDS: Ascorbic Acid 500 MG Tablet PO (11:05)
[2022-08-14] MEDS: Ferrous Sulfate 325 MG Tablet PO (11:05)
[2022-08-14] MEDS: Sertraline 100 MG Tablet PO (11:05)
[2022-08-14] MEDS: Losartan Potassium 50 MG Tablet PO ×2 (11:05→23:01)
[2022-08-14] MEDS: Glimepiride 4 MG Tablet PO ×2 (11:05→17:10)
[2022-08-14] MEDS: Multivitamins,Therapeutic Tablet 1 TABLET PO (11:05)
[2022-08-14] MEDS: Metoprolol Tartrate 50 MG Tablet PO ×2 (11:05→23:00)
[2022-08-14] MEDS: Cholecalciferol (VIT D3) 25 MCG TABLET (1,000 UNITS) 50 MCG PO (11:09)
[2022-08-14] MEDS: Insulin Lispro 100 UNIT/ML INSULN.PEN SC ×3 (12:16→23:01)
[2022-08-14 12:50] LABS: Bedside Glucose 256 mg/dL (74-106)
[2022-08-14] MEDS: 0.9% Saline Lock 10 ML Syringe IV ×2 (17:09→23:40)
[2022-08-14 19:27] LABS: Bedside Glucose 168 mg/dL (74-106)
[2022-08-14] MEDS: Atorvastatin Calcium 10 MG Tablet PO (23:01)
[2022-08-14 23:40] LABS: Bedside Glucose 180 mg/dL (74-106)
[2022-08-15 04:45] VITALS: BP 126/89; PULSE 90; RESP 16; TEMP 36.4; O2SAT 95
[2022-08-15 07:20] LABS: Bedside Glucose 121 mg/dL (74-106)
[2022-08-15 07:59] LABS: International Normalized Ratio 1.9; Prothrombin Time (Protime)PT. 21.1 SECONDS (11.7-14.9)
[2022-08-15 09:19] VITALS: BP 124/100; PULSE 127; RESP 16; TEMP 36.6; O2SAT 98
[2022-08-15] MEDS: Glimepiride 4 MG Tablet PO ×2 (09:21→16:11)
[2022-08-15] MEDS: Losartan Potassium 50 MG Tablet PO ×2 (09:22→22:25)
[2022-08-15] MEDS: Ascorbic Acid 500 MG Tablet PO (09:22)
[2022-08-15] MEDS: Sertraline 100 MG Tablet PO (09:22)
[2022-08-15] MEDS: Multivitamins,Therapeutic Tablet 1 TABLET PO (09:22)
[2022-08-15] MEDS: Cholecalciferol (VIT D3) 25 MCG TABLET (1,000 UNITS) 50 MCG PO (09:22)
[2022-08-15] MEDS: Aspirin 81 MG TAB.CHEW PO (09:22)
[2022-08-15] MEDS: dilTIAZem CD 240 MG Capsule PO (09:22)
[2022-08-15] MEDS: Ferrous Sulfate 325 MG Tablet PO (09:23)
[2022-08-15] MEDS: Tolterodine Tartrate 4 MG CAP.SA PO (09:23)
[2022-08-15 09:32] VITALS: BP 124/100; PULSE 127
[2022-08-15] MEDS: Metoprolol Tartrate 50 MG Tablet PO ×2 (09:32→22:25)
--- NOTE | 2022-08-15 10:43 | PCM.DC ---
Discharge Instructions Diet Discharge Diet: No restrictions Dressing / Incision Call your doctor if your incision/area has: Sudden Increased Bleeding, Increased Pain/ Swelling, Increased Redness and Foul Smelling Discharge Call your doctor if you observe: Chest pain and Increased palpitations (irregular heartbeat) Follow Up Care Test Results: Test results from this visit will be discussed in further detail at your follow-up appointment, if applicable. Discharge Plan Admission Admit Date/Time: 08/11/22 22:18 Primary Reason for Your Visit: atrial flutter with rapid ventricular response. Attending Provider: Wale Jacobsen Primary Care Provider: Sulma Reagan Consulting Providers: Nicholas Delvalle ; Anu James Discharge Orders/Prescriptions Prescriptions: New diltiazem HCl 240 mg Capsule,Extended Release 24hr 240 mg PO DAILY Qty: 30 0RF Continued acetaminophen 325 mg capsule 650 mg PO PRN PRN (Reason: Pain) cholecalciferol (vitamin D3) 50 mcg (2,000 unit) capsule 50 mcg PO DAILY ferrous sulfate 325 mg (65 mg iron) tablet 325 mg PO DAILY ascorbic acid (vitamin C) [Vitamin C] 500 mg Tablet 500 mg PO DAILY multivitamin Tablet 1 tab PO DAILY amlodipine 10 mg tablet 10 mg PO DAILY warfarin [Jantoven] 2.5 mg tablet 2.5 mg PO DINNER aspirin 81 mg tablet,chewable 81 mg PO BREAKFAST vancomycin in dextrose 5 % 1 gram/200 mL piggyback 1,000 mg IV Q24H Rx Instructions: stop date 08/23/22 dx: finger osteomyelitis weekly bmp, cbc, esr, and vanc trough. Fax to [phone] routine picc care per protocol glimepiride 4 mg tablet 4 mg PO BID 90 Days Qty: 180 3RF losartan 50 mg tablet 50 mg PO BID Qty: 180 3RF oxybutynin chloride 15 mg tablet extended release 24hr 15 mg PO BID Qty: 180 1RF sertraline [Zoloft] 100 mg tablet 100 mg PO DAILY Qty: 90 0RF metoprolol tartrate 50 mg tablet 50 mg PO BID Qty: 180 1RF simvastatin 20 mg tablet 20 mg PO QHS Qty: 90 3RF metformin 1,000 mg tablet 1,000 mg PO BID Qty: 180 3RF Referrals / Follow Up: [facility] [Provider Group] - Within 1 Month Sulma Reagan MD [Primary Care Provider] - 09/01/22 10:45 am Reji Morocho MD [Med Staff - Active Staff] - Within 2 Weeks Génesis Patel NP, IMP[facility]ER-C [Med Staff - Adv Practice Prof] - 08/16/22 2:15 pm Disposition Disposition (needs filled in before D/C Order can be placed): Home Health Service
--- NOTE | 2022-08-15 10:53 | DS.PCM_ITS ---
Providers Date of Admission: 08/11/22 Primary Care Physician: Dr. 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 Comment: Reason for Consult:: C doing wound dressings to finger and LLE, hx MRSA 08/13/22 08:29 Consult: Cardiology Routine Consulting Provider: Anu James Reason for Consult: aflutter w rvr EMERGENT Consult: No MD Notified: Yes Date Notified: 08/13/22 Time Notified: 08:29 Method of Notification: Text Reason For Visit: A-FIB RVR Diagnosis Discharge Diagnosis (1) Atrial flutter with rapid ventricular response: Status: Acute Code(s): I48.92 - Unspecified atrial flutter Plan: Atrial flutter with rapid ventricular response/paroxysmal atrial fibrillation with RVR/hypercoagulable state due to atrial fibrillation Despite metoprolol IV, and Cardizem IV bolus x2 patient still remain in a flu tter with RVR/A-fib with RVR. Cardizem drip started. Titrate Cardizem drip. Echocardiogram on 07/10/2022 was reviewed. Echocardiogram showed EF of 60% with stage II diastolic dysfunction. Normal left atrium. Normal right atrium. Mild 1+ eccentric mitral valve insufficiency. Mild tricuspid valve insufficiency. Pulm artery systolic pressure was 38 mmHg. INR is therapeutic now. continue warfarin. 08/12: Restarted metoprolol tartrate and weaned off of diltiazem drip. Patient subsequently developed A-fib with RVR the morning of the and had to be restarted on the diltiazem drip. Consult cardiology 08/13: Seen by cardiology who started diltiazem 60 q6h in addition to metoprolol tartate. Dilt gtt turned off. 08/15: changed to diltiazem 240. converted to NSR. Continue metoprolol and dil tiazem CD. Follow up with cardiology (2) Occluded PICC line: Status: Acute Code(s): T82.898A - Other specified complication of vascular prosthetic devices, implants and grafts, initial encounter Plan: Resolved status post alteplase in ED (3) Osteomyelitis of finger of right hand: Status: Chronic Code(s): M86.9 - Osteomyelitis, unspecified Plan: MRSA osteomyelitis of right finger subsequent encounter. Stable Vancomycin continued Plan Chronic conditions: * Heart failure with preserved ejection fraction: BNP of 750.3. Last BNP on file was 270.6. Radiologist impression of chest x-ray: No acute findings. Chest x-ray was visualized and I agree with cardiology interpretation. Stable. * Chronic normocytic anemia Stable * CKD stage IIIa Stable Trend BMP. * Diabetes mellitus Blood glucoses is . DC home with home health care. Medications at Discharge Home Medications ferrous sulfate 325 mg (65 mg iron) tablet 325 mg PO DAILY Supplement 01/27/21 ascorbic acid (vitamin C) 500 mg tablet (Vitamin C) 500 mg PO DAILY vitamin 08/21/21 acetaminophen 325 mg capsule 650 mg PO PRN PRN Pain 12/02/21 cholecalciferol (vitamin D3) 50 mcg (2,000 unit) capsule 50 mcg PO DAILY vitamin 03/03/22 glimepiride 4 mg tablet 4 mg PO BID dm 3 months #180 tabs 06/24/22 losartan 50 mg tablet 50 mg PO BID bp #180 tabs 06/24/22 oxybutynin chloride 15 mg tablet,extended release 24 hr 15 mg PO BID bladder #180 tabs 06/24/22 sertraline 100 mg tablet (Zoloft) 100 mg PO DAILY anxiety #90 tabs 06/24/22 metoprolol tartrate 50 mg tablet 50 mg PO BID heart #180 tabs 06/28/22 metformin 1,000 mg tablet 1,000 mg PO BID DM #180 tabs 07/06/22 simvastatin 20 mg tablet 20 mg PO QHS cholesterol #90 tabs 07/06/22 amlodipine 10 mg tablet 10 mg PO DAILY BP 07/09/22 multivitamin 1 tab PO DAILY SUPPLEMENT 07/09/22 aspirin 81 mg chewable tablet 81 mg PO BREAKFAST Heart 08/11/22 vancomycin 1 gram/200 mL in dextrose 5 % intravenous piggyback 1,000 mg IV Q24H Antibiotic 08/11/22 warfarin 2.5 mg tablet (Jantoven) 2.5 mg PO DINNER Blood Thinner 08/11/22 diltiazem HCl 240 mg capsule,extended release 24 hr 240 mg PO DAILY #30 caps 08/15/22 Hospital Course Operations None Procedures None Summary of Care Provided Minutes Spent on Discharge: 28 Weight / BMI Weight Weight: 85.5 kg Body Mass Index (BMI) 35.6 ABG / Lab / Microbiology Data Result Diagrams: 08/12/22 04:54 08/12/22 04:54 Laboratory: Laboratory Results - last 24 hr 08/14/22 12:13: POC Glucose 256 H 08/14/22 17:14: POC Glucose 168 H 08/14/22 22:59: POC Glucose 180 H 08/15/22 06:15: PT 21.1 H, INR 1.9 08/15/22 07:00: POC Glucose 121 H D/C Instructions Discharge Diet: No restrictions Call your doctor if your incision/area has: Sudden Increased Bleeding, Increased Pain/ Swelling, Increased Redness and Foul Smelling Discharge Call your doctor if you observe: Chest pain and Increased palpitations (irregular heartbeat) Meaningful Use Info Meaningful Use Diagnoses (Choose all that apply): None applicable Discharge Plan Admission Admit Date/Time: 08/11/22 22:18 Primary Reason for Your Visit: atrial flutter with rapid ventricular response. Attending Provider: Wale Jacobsen Primary Care Provider: Sulma Reagan Consulting Providers: Nicholas Delvalle ; Anu James Discharge Orders/Prescriptions Prescriptions: New diltiazem HCl 240 mg Capsule,Extended Release 24hr 240 mg PO DAILY Qty: 30 0RF Continued acetaminophen 325 mg capsule 650 mg PO PRN PRN (Reason: Pain) cholecalciferol (vitamin D3) 50 mcg (2,000 unit) capsule 50 mcg PO DAILY ferrous sulfate 325 mg (65 mg iron) tablet 325 mg PO DAILY ascorbic acid (vitamin C) [Vitamin C] 500 mg Tablet 500 mg PO DAILY multivitamin Tablet 1 tab PO DAILY amlodipine 10 mg tablet 10 mg PO DAILY warfarin [Jantoven] 2.5 mg tablet 2.5 mg PO DINNER aspirin 81 mg tablet,chewable 81 mg PO BREAKFAST vancomycin in dextrose 5 % 1 gram/200 mL piggyback 1,000 mg IV Q24H Rx Instructions: stop date 08/23/22 dx: finger osteomyelitis weekly bmp, cbc, esr, and vanc trough. Fax to [phone] routine picc care per protocol glimepiride 4 mg tablet 4 mg PO BID 90 Days Qty: 180 3RF losartan 50 mg tablet 50 mg PO BID Qty: 180 3RF oxybutynin chloride 15 mg tablet extended release 24hr 15 mg PO BID Qty: 180 1RF sertraline [Zoloft] 100 mg tablet 100 mg PO DAILY Qty: 90 0RF metoprolol tartrate 50 mg tablet 50 mg PO BID Qty: 180 1RF simvastatin 20 mg tablet 20 mg PO QHS Qty: 90 3RF metformin 1,000 mg tablet 1,000 mg PO BID Qty: 180 3RF Referrals / Follow Up: [facility] [Provider Group] - Within 1 Month Sulma Reagan MD [Primary Care Provider] - 09/01/22 10:45 am Reji Morocho MD [Med Staff - Active Staff] - Within 2 Weeks Génesis Patel NP, PLUCK SEPARATOR-C [Med Staff - Adv Practice Prof] - 08/16/22 2:15 pm Disposition Disposition (needs filled in before D/C Order can be placed): Home Health Service Charges/Coding Visit Charges Inpatient E&M: 30615 Disch Hosp
[2022-08-15] MEDS: Insulin Lispro 100 UNIT/ML INSULN.PEN SC ×2 (11:31→22:27)
[2022-08-15 11:55] LABS: Bedside Glucose 272 mg/dL (74-106)
--- NOTE | 2022-08-15 12:33 | PCM.PN.HOSP ---
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 No events. Objective Data Objective Data Vital Signs: Vital Signs Temp Pulse Resp BP Pulse Ox O2 Del Method O2 Flow Rate 36.6 C 127 H 16 124/100 H 98 Room Air 2 08/15/22 09:19 08/15/22 09:32 08/15/22 09:19 08/15/22 09:32 08/15/22 09:19 08/15/22 10:00 08/14/22 03:32 Oxygen Flow Rate (L/min) 2 Oxygen Delivery Method Room Air Weight: 85.5 kg Body Mass Index (BMI) 35.6 Intake & Output: Intake and Output for Last 24 Hours 08/13/22 08/14/22 08/15/22 23:59 23:59 23:59 Intake Total 391.66 / 591.66 1075 / 1075 275 / 275 Output Total 600 / 600 1550 / 1550 400 / 400 Balance -208.34 / -8.34 -475 / -475 -125 / -125 Lab / Micro Data Result Diagrams: 08/12/22 04:54 08/12/22 04:54 Labs: Laboratory Results - last 24 hr 08/14/22 12:13: POC Glucose 256 H 08/14/22 17:14: POC Glucose 168 H 08/14/22 22:59: POC Glucose 180 H 08/15/22 06:15: PT 21.1 H, INR 1.9 08/15/22 07:00: POC Glucose 121 H 08/15/22 11:30: POC Glucose 272 H Physical Exam Const alert and no apparent distress HEENT head/scalp atraumatic and moist oral mucous membranes Resp normal respiratory effort and no retractions Cardio Cardio Narrative: irregularly irregular (converted to NSR after my eval) GI normal to inspection, nondistended, normoactive bowel sounds Assessment & Plan Assessment/Plan (1) Atrial flutter with rapid ventricular response: PLAN: Atrial flutter with rapid ventricular response/paroxysmal atrial fibrillation with RVR/hypercoagulable state due to atrial fibrillation Despite metoprolol IV, and Cardizem IV bolus x2 patient still remain in a flutter with RVR/A-fib with RVR. Cardizem drip started. Titrate Cardizem drip. Echocardiogram on 07/10/2022 was reviewed. Echocardiogram showed EF of 60% with stage II diastolic dysfunction. Normal left atrium. Normal right atrium. Mild 1+ eccentric mitral valve insufficiency. Mild tricuspid valve insufficiency. Pulm artery systolic pressure was 38 mmHg. INR is therapeutic now. continue warfarin. 08/12: Restarted metoprolol tartrate and weaned off of diltiazem drip. Patient subsequently developed A-fib with RVR the morning of the and had to be restarted on the diltiazem drip. Consult cardiology 08/13: Seen by cardiology who started diltiazem 60 q6h in addition to metoprolol tartate. Dilt gtt turned off. 08/15: changed to diltiazem 240. converted to NSR. Continue metoprolol and diltiazem CD. 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 Stable Vancomycin continued PLAN: Plan Chronic conditions: Heart failure with preserved ejection fraction: BNP of 750.3. Last BNP on file was 270.6. Radiologist impression of chest x-ray: No acute findings. Chest x-ray was visualized and I agree with cardiology interpretation. Stable. Chronic normocytic anemia Stable CKD stage IIIa Stable Trend BMP. Diabetes mellitus Blood glucoses is . DC home with home health care. Plan was to discharge 08/15, but with the IV abx, will not be able to get HHC until 08/16, therefore discharge delayed until then. Charges/Coding Visit Charges Inpatient E&M: 92489 Subs Hosp L2
[2022-08-15 16:15] VITALS: BP 116/56; PULSE 70; RESP 16; TEMP 36.5; O2SAT 95
[2022-08-15 16:55] LABS: Bedside Glucose 108 mg/dL (74-106)
[2022-08-15 22:20] VITALS: BP 130/58; PULSE 71; RESP 16; TEMP 36.4; O2SAT 95
[2022-08-15 22:25] VITALS: BP 130/58; PULSE 71
[2022-08-15] MEDS: Atorvastatin Calcium 10 MG Tablet PO (22:25)
[2022-08-15 22:50] LABS: Bedside Glucose 171 mg/dL (74-106)
[2022-08-15 22:51] LABS: Vancomycin, Trough Level 22.9 ug/mL (5.0-15.0)
--- NOTE | 2022-08-15 23:08 | PCM.RX.CS ---
Consult Pharmacy has been consulted to manage selected antiobiotic: Vancomycin Type of Consult: Follow-up Suspected Infection: Osteomyelitis Prior Doses of Antibiotics Received/Current Regimen: Medications Discontinued Medications Vancomycin HCl 1,250 mg/ (Sodium Chloride) 275 mls @ 167 mls/hr IV Q24H ROSALIND Last Admin: 08/15/22 22:57 Dose: Not Given Labs: Sodium 141 mmol/L (136-145) 08/12/22 04:54 Potassium 3.9 mmol/L (3.5-5.1) 08/12/22 04:54 Chloride 114 mmol/L (98-107) H 08/12/22 04:54 Carbon Dioxide 20.0 mmol/L (21.0-32.0) L 08/12/22 04:54 Anion Gap 7 (5-15) 08/12/22 04:54 BUN 35 mg/dL (7-18) H 08/12/22 04:54 Creatinine 1.07 mg/dL (0.55-1.02) H 08/12/22 04:54 Est GFR (MDRD) Af Amer 65 mL/min (>60) 08/12/22 04:54 Est GFR (MDRD) Non-Af 54 mL/min (>60) L 08/12/22 04:54 BUN/Creatinine Ratio 32.7 RATIO (10-20) H 08/12/22 04:54 Glucose 160 mg/dL (74-106) H 08/12/22 04:54 Vancomycin Trough 22.9 ug/mL (5.0-15.0) H 08/15/22 22:30 Weight used for dosin.5 kg Estimated Creatinine Clearance: 48.6 Goal Trough: 15-20 mcg/mL Pharmacy Plan for Drug Dosing: Vancomycin trough level, drawn 23 hours post-dose, was high at 22.9. The scheduled dose was held. A random level will be drawn in 24 hours to determine continuing dosing, if patient is not discharged by then. Pharmacy Service will continue to monitor and adjust dosing as required. Follow-Up Labs: Trough Vancomycin - random Labs to be done on [date and time ordered]: 08/16/22 @2230 random
[2022-08-16 03:19] VITALS: BP 138/75; PULSE 65; RESP 16; TEMP 36.9; O2SAT 96
[2022-08-16 07:05] LABS: Bedside Glucose 62 mg/dL (74-106)
[2022-08-16 07:59] VITALS: O2SAT 93
[2022-08-16 08:11] VITALS: O2SAT 93
[2022-08-16 08:26] LABS: Bedside Glucose 106 mg/dL (74-106)
[2022-08-16 09:17] VITALS: BP 116/71; PULSE 60; RESP 18; TEMP 36.6; O2SAT 97
[2022-08-16] MEDS: Glimepiride 4 MG Tablet PO (09:32)
[2022-08-16] MEDS: Ascorbic Acid 500 MG Tablet PO (09:33)
[2022-08-16] MEDS: Aspirin 81 MG TAB.CHEW PO (09:33)
[2022-08-16] MEDS: Cholecalciferol (VIT D3) 25 MCG TABLET (1,000 UNITS) 50 MCG PO (09:33)
[2022-08-16] MEDS: Multivitamins,Therapeutic Tablet 1 TABLET PO (09:34)
[2022-08-16] MEDS: dilTIAZem CD 240 MG Capsule PO (09:34)
[2022-08-16] MEDS: Losartan Potassium 50 MG Tablet PO (09:34)
[2022-08-16] MEDS: Ferrous Sulfate 325 MG Tablet PO (09:34)
[2022-08-16] MEDS: Sertraline 100 MG Tablet PO (09:34)
[2022-08-16] MEDS: Tolterodine Tartrate 4 MG CAP.SA PO (09:34)
[2022-08-16 09:35] VITALS: BP 116/71; PULSE 60
[2022-08-16] MEDS: Metoprolol Tartrate 50 MG Tablet PO (09:35)
[2022-08-16 09:46] LABS: Bedside Glucose 132 mg/dL (74-106)
--- NOTE | 2022-08-16 11:07 | WOUNDNOTE ---
wound photo: right middle finger
--- NOTE | 2022-08-16 11:08 | WOUNDNOTE ---
wound photo: left lower leg
[2022-08-16] MEDS: Insulin Lispro 100 UNIT/ML INSULN.PEN SC (11:26)
--- NOTE | 2022-08-16 11:30 | CASEMGMT ---
CORNELIO ALMANZAR reviewed patient's progress with therapy and patient did well and therapy recommending home with [facility]. CORNELIO ALMANZAR in to discuss discharge planning with patient and she is agreeable to go home with resumption of HHC with [facility]. Script received from ID for resumption of IV Vanco at home. CORNELIO ALMANZAR sent referral to [facility] to arrange for IV ATB delivery. CORNELIO ALMANZAR updated [facility] of home discharge. Patient had no further questions or concerns at this time.
[2022-08-16 11:55] LABS: Bedside Glucose 228 mg/dL (74-106)
--- NOTE | 2022-08-16 13:50 | PCM.TXEXTCAR ---
Diet Diet Order/Speech Therapy: 08/12/22 00:48 Diet: Cardiac: Calorie-Controlled Food consistency:: Regular Liquid Consistency:: Regular/Thin How many daily calories?: 1800 calorie Routine Orders/Code Status Enema Type: Fleetz Enema Frequency: Daily PRN Suppository Type: Dulcolax 10mg Suppository Frequency: Daily PRN O2 Frequency: PRN Keep PO Greater than or Equal to (%): 90 Wound(s) left leg: Wound Type: cluster of abrasions Dressing Change: Mepilex right middle finger: Wound Type: healing surgical wound Dressing Change: Promogran Therapies Weight Bearing: Weight bearing as tolerated Physical Therapy: Eval and Treat Occupational Therapy: Eval and Treat Problem/Diagnosis (1) Atrial flutter with rapid ventricular response: Status: Acute Code(s): I48.92 - Unspecified atrial flutter (2) Occluded PICC line: Status: Acute Code(s): T82.898A - Other specified complication of vascular prosthetic devices, implants and grafts, initial encounter (3) Osteomyelitis of finger of right hand: Status: Chronic Code(s): M86.9 - Osteomyelitis, unspecified Allergies/Procedures Done in Hospital Allergies fosinopril [From Monopril] Allergy (Unknown, Verified 08/11/22 15:40) unknown pioglitazone Adverse Reaction (Verified 08/11/22 15:40) Other Type of Care/Length of Stay Estimated LOS: Convalescent Care Less Than 30 days Type of Care Needed: Skilled Rehab Potential: Fair Prognosis: Fair Additional Orders/Day of Discharge Day of Discharge: 08/16/22 Dietary and Speech Recommendations Dietitian Recommendations/Changes: continue cardiac, 1800 calorie controlled diet as tolerated; will d/c glucerna Discharge Plan Admission Admit Date/Time: 08/11/22 22:18 Primary Reason for Your Visit: atrial flutter with rapid ventricular response. Attending Provider: Kisha Lopez Primary Care Provider: Sulma Reagan Consulting Providers: Nicholas Delvalle ; Anu James ; Wale Jacobsen Discharge Orders/Prescriptions Prescriptions: New diltiazem HCl 240 mg Capsule,Extended Release 24hr 240 mg PO DAILY Qty: 30 0RF Continued acetaminophen 325 mg capsule 650 mg PO PRN PRN (Reason: Pain) cholecalciferol (vitamin D3) 50 mcg (2,000 unit) capsule 50 mcg PO DAILY ferrous sulfate 325 mg (65 mg iron) tablet 325 mg PO DAILY ascorbic acid (vitamin C) [Vitamin C] 500 mg Tablet 500 mg PO DAILY multivitamin Tablet 1 tab PO DAILY amlodipine 10 mg tablet 10 mg PO DAILY warfarin [Jantoven] 2.5 mg tablet 2.5 mg PO DINNER aspirin 81 mg tablet,chewable 81 mg PO BREAKFAST vancomycin in dextrose 5 % 1 gram/200 mL piggyback 1,000 mg IV Q24H Rx Instructions: stop date 08/23/22 dx: finger osteomyelitis weekly bmp, cbc, esr, and vanc trough. Fax to [phone] routine picc care per protocol glimepiride 4 mg tablet 4 mg PO BID 90 Days Qty: 180 3RF losartan 50 mg tablet 50 mg PO BID Qty: 180 3RF oxybutynin chloride 15 mg tablet extended release 24hr 15 mg PO BID Qty: 180 1RF sertraline [Zoloft] 100 mg tablet 100 mg PO DAILY Qty: 90 0RF metoprolol tartrate 50 mg tablet 50 mg PO BID Qty: 180 1RF simvastatin 20 mg tablet 20 mg PO QHS Qty: 90 3RF metformin 1,000 mg tablet 1,000 mg PO BID Qty: 180 3RF Referrals / Follow Up: [facility] [Provider Group] - Within 1 Month Sulma Reagan MD [Primary Care Provider] - 09/01/22 10:45 am Reji Morocho MD [Med Staff - Active Staff] - Within 2 Weeks Génesis Patel NP, STACY-C [Med Staff - Adv Practice Prof] - 08/16/22 2:15 pm Disposition Disposition (needs filled in before D/C Order can be placed): Home Health Service
--- NOTE | 2022-08-16 13:54 | PCM.DC.SUM ---
Providers Date of Admission: 08/11/22 Date of Discharge: 08/17/22 Primary Care Physician: Dr. Sulma Reagan MD Consultations 08/12/22 07:27 Consult: Onc/Wound/registered nurse behavioral health Routine Comment: Reason for Consult:: HHC doing wound dressings to finger and LLE, hx MRSA 08/13/22 08:29 Consult: Cardiology Routine Consulting Provider: Anu James Reason for Consult: aflutter w rvr EMERGENT Consult: No MD Notified: Yes Date Notified: 08/13/22 Time Notified: 08:29 Method of Notification: Text Reason For Visit: A-FIB RVR Diagnosis Discharge Diagnosis (1) Atrial flutter with rapid ventricular response: Status: Acute Code(s): I48.92 - Unspecified atrial flutter (2) Occluded PICC line: Status: Acute Code(s): T82.898A - Other specified complication of vascular prosthetic devices, implants and grafts, initial encounter (3) Osteomyelitis of finger of right hand: Status: Chronic Code(s): M86.9 - Osteomyelitis, unspecified Medications at Discharge Home Medications ferrous sulfate 325 mg (65 mg iron) tablet 325 mg PO DAILY Supplement 01/27/21 ascorbic acid (vitamin C) 500 mg tablet (Vitamin C) 500 mg PO DAILY vitamin 08/21/21 acetaminophen 325 mg capsule 650 mg PO PRN PRN Pain 12/02/21 cholecalciferol (vitamin D3) 50 mcg (2,000 unit) capsule 50 mcg PO DAILY vitamin 03/03/22 glimepiride 4 mg tablet 4 mg PO BID dm 3 months #180 tabs 06/24/22 losartan 50 mg tablet 50 mg PO BID bp #180 tabs 06/24/22 oxybutynin chloride 15 mg tablet,extended release 24 hr 15 mg PO BID bladder #180 tabs 06/24/22 sertraline 100 mg tablet (Zoloft) 100 mg PO DAILY anxiety #90 tabs 06/24/22 metoprolol tartrate 50 mg tablet 50 mg PO BID heart #180 tabs 06/28/22 metformin 1,000 mg tablet 1,000 mg PO BID DM #180 tabs 07/06/22 simvastatin 20 mg tablet 20 mg PO QHS cholesterol #90 tabs 07/06/22 amlodipine 10 mg tablet 10 mg PO DAILY BP 07/09/22 multivitamin 1 tab PO DAILY SUPPLEMENT 07/09/22 aspirin 81 mg chewable tablet 81 mg PO BREAKFAST Heart 08/11/22 vancomycin 1 gram/200 mL in dextrose 5 % intravenous piggyback 1,000 mg IV Q24H Antibiotic 08/11/22 warfarin 2.5 mg tablet (Jantoven) 2.5 mg PO DINNER Blood Thinner 08/11/22 diltiazem HCl 240 mg capsule,extended release 24 hr 240 mg PO DAILY #30 caps 08/15/22 Hospital Course Operations None Procedures None Summary of Care Provided Minutes Spent on Discharge: 55 Hospital Course: Patient is a 72-year-old female with a past medical history as outlined who was admitted through the ED on 08/11/2022 on account of malfunctioning PICC line. Patient had been on IV vancomycin for MRSA osteomyelitis of her right middle finger. Her home health nurse could not give her antibiotics on account of a clogged PICC line. On admission she was also found to be in atrial flutter. Admitted and managed for new onset atrial flutter with rapid ventricular rate. She had had a 2D echo on 07/10/2022 which showed EF of 60% with stage II diastolic dysfunction and pulmonary artery systolic pressure of 38mmHg. She was diuresed with Lasix as a BNP was also elevated. The occlusion of her PICC line resolved after she was given IV alteplase in the ED. She was weaned off of Cardizem drip and cardiology consulted. She was placed on p.o. Cardizem and p.o. metoprolol. Patient was on Coumadin which was continued. She remained stable and was discharged home on 08/17/2022. She was discharged with home health and is to continue antibiotics till 08/23/2022. She is follow-up with her primary care doctor and with cardiology. She is follow-up with her PCP for monitoring of her INR. Patient seen and examined prior to discharge. She had no complaints and had an uneventful night. Review of systems otherwise negative. Labs and vitals reviewed. Medication reviewed and reconciled. Physical Exam Const alert, oriented x3 and no apparent distress General Appearance: cooperative, comfortable and well kempt Orientation / Consciousness: awake HEENT normocephalic, head/scalp atraumatic, hearing grossly normal bilaterally and moist oral mucous membranes Mouth: oral and palatal mucosa normal Neck no lymphadenopathy and supple Resp normal respiratory effort, no retractions, no use of accessory muscles and clear to auscultation bilaterally Cardio regular rate, regular rhythm, S1 normal heart sound and S2 normal heart sound GI normal to inspection, nondistended, normoactive bowel sounds, soft to palpation, non-tender and non-distended Extremity normal to inspection Extremity Narrative: right middle finger wrapped in bandage o/.a of osteomyelitis Skin Skin Narrative: as under extremity Neuro oriented x3, CN's II-XII intact bilaterally and moves all extremities Sensorium / Orientation: awake and alert Motor Exam: strength 5/5 throughout Psych affect normal Weight / BMI Weight Weight: 188 lb 7.924 oz Body Mass Index (BMI) 35.6 ABG / Lab / Microbiology Data Result Diagrams: 08/12/22 04:54 08/12/22 04:54 Laboratory: Laboratory Results - last 24 hr 08/15/22 16:10: POC Glucose 108 H 08/15/22 22:23: POC Glucose 171 H 08/15/22 22:30: Vancomycin Trough 22.9 H 08/16/22 06:42: POC Glucose 62 L 08/16/22 08:06: POC Glucose 106 08/16/22 09:12: POC Glucose 132 H 08/16/22 11:25: POC Glucose 228 H D/C Instructions Discharge Diet: No restrictions Discharge Activity: Return to Normal Activity Weight Bearing Status: Weight bearing as tolerated Call your doctor if your incision/area has: Sudden Increased Bleeding, Increased Pain/ Swelling, Increased Redness and Foul Smelling Discharge Call your doctor if you observe: Chest pain and Increased palpitations (irregular heartbeat) Meaningful Use Info Meaningful Use Diagnoses (Choose all that apply): None applicable Discharge Plan Admission Admit Date/Time: 08/11/22 22:18 Primary Reason for Your Visit: atrial flutter with rapid ventricular response. Attending Provider: Kisha Lopez Primary Care Provider: Sulma Reagan Consulting Providers: Nicholas Delvalle ; Anu James ; Wale Jacobsen Discharge Orders/Prescriptions Prescriptions: New diltiazem HCl 240 mg Capsule,Extended Release 24hr 240 mg PO DAILY Qty: 30 0RF Continued acetaminophen 325 mg capsule 650 mg PO PRN PRN (Reason: Pain) cholecalciferol (vitamin D3) 50 mcg (2,000 unit) capsule 50 mcg PO DAILY ferrous sulfate 325 mg (65 mg iron) tablet 325 mg PO DAILY ascorbic acid (vitamin C) [Vitamin C] 500 mg Tablet 500 mg PO DAILY multivitamin Tablet 1 tab PO DAILY amlodipine 10 mg tablet 10 mg PO DAILY warfarin [Jantoven] 2.5 mg tablet 2.5 mg PO DINNER aspirin 81 mg tablet,chewable 81 mg PO BREAKFAST vancomycin in dextrose 5 % 1 gram/200 mL piggyback 1,000 mg IV Q24H Rx Instructions: stop date 08/23/22 dx: finger osteomyelitis weekly bmp, cbc, esr, and vanc trough. Fax to [phone] routine picc care per protocol glimepiride 4 mg tablet 4 mg PO BID 90 Days Qty: 180 3RF losartan 50 mg tablet 50 mg PO BID Qty: 180 3RF oxybutynin chloride 15 mg tablet extended release 24hr 15 mg PO BID Qty: 180 1RF sertraline [Zoloft] 100 mg tablet 100 mg PO DAILY Qty: 90 0RF metoprolol tartrate 50 mg tablet 50 mg PO BID Qty: 180 1RF simvastatin 20 mg tablet 20 mg PO QHS Qty: 90 3RF metformin 1,000 mg tablet 1,000 mg PO BID Qty: 180 3RF Referrals / Follow Up: Jeremias Betancourt MD [Med Staff - Active Staff] - Within 1 Month (Please call [facility] to schedule an appt within 1 month. ) Sulma Reagan MD [Primary Care Provider] - 09/01/22 10:45 am Reji Morocho MD [Med Staff - Active Staff] - 08/26/22 2:15 pm Génesis Patel NP, NP-C [Med Staff - Adv Practice Prof] - 08/23/22 1:30 pm Disposition Disposition (needs filled in before D/C Order can be placed): Home Health Service Charges/Coding Visit Charges Inpatient E&M: 02871 Disch Hosp >30min
--- NOTE | 2022-08-16 14:13 | PCM.DC ---
Discharge Instructions Diet Discharge Diet: No restrictions Activity Discharge Activity: Return to Normal Activity Weight Bearing Status: Weight bearing as tolerated Dressing / Incision Call your doctor if your incision/area has: Sudden Increased Bleeding, Increased Pain/ Swelling, Increased Redness and Foul Smelling Discharge Call your doctor if you observe: Chest pain and Increased palpitations (irregular heartbeat) Follow Up Care Test Results: Test results from this visit will be discussed in further detail at your follow-up appointment, if applicable. Discharge Plan Admission Admit Date/Time: 08/11/22 22:18 Primary Reason for Your Visit: atrial flutter with rapid ventricular response. Attending Provider: Kisha Lopez Primary Care Provider: Sulma Reagan Consulting Providers: Nicholas Delvalle ; Anu James ; Wale Jacobsen Discharge Orders/Prescriptions Prescriptions: New diltiazem HCl 240 mg Capsule,Extended Release 24hr 240 mg PO DAILY Qty: 30 0RF Continued acetaminophen 325 mg capsule 650 mg PO PRN PRN (Reason: Pain) cholecalciferol (vitamin D3) 50 mcg (2,000 unit) capsule 50 mcg PO DAILY ferrous sulfate 325 mg (65 mg iron) tablet 325 mg PO DAILY ascorbic acid (vitamin C) [Vitamin C] 500 mg Tablet 500 mg PO DAILY multivitamin Tablet 1 tab PO DAILY amlodipine 10 mg tablet 10 mg PO DAILY warfarin [Jantoven] 2.5 mg tablet 2.5 mg PO DINNER aspirin 81 mg tablet,chewable 81 mg PO BREAKFAST vancomycin in dextrose 5 % 1 gram/200 mL piggyback 1,000 mg IV Q24H Rx Instructions: stop date 08/23/22 dx: finger osteomyelitis weekly bmp, cbc, esr, and vanc trough. Fax to [phone] routine picc care per protocol glimepiride 4 mg tablet 4 mg PO BID 90 Days Qty: 180 3RF losartan 50 mg tablet 50 mg PO BID Qty: 180 3RF oxybutynin chloride 15 mg tablet extended release 24hr 15 mg PO BID Qty: 180 1RF sertraline [Zoloft] 100 mg tablet 100 mg PO DAILY Qty: 90 0RF metoprolol tartrate 50 mg tablet 50 mg PO BID Qty: 180 1RF simvastatin 20 mg tablet 20 mg PO QHS Qty: 90 3RF metformin 1,000 mg tablet 1,000 mg PO BID Qty: 180 3RF Referrals / Follow Up: [facility] [Provider Group] - Within 1 Month Sulma Reagan MD [Primary Care Provider] - 09/01/22 10:45 am Reji Morocho MD [Med Staff - Active Staff] - Within 2 Weeks Génesis Patel NP, ROLL OPERATOR-C [Med Staff - Adv Practice Prof] - 08/16/22 2:15 pm Disposition Disposition (needs filled in before D/C Order can be placed): Home Health Service
[2022-08-16 14:45] VITALS: BP 108/52; PULSE 64; RESP 18; TEMP 36.4; O2SAT 97
--- NOTE | 2022-08-16 14:45 | CHAPLAIN ---
Type of Pastoral Visit _x__ Initial Visit ___ Follow-up Visit ___ On-call Visit ___ General Patient Visit ___ Spiritual Assessment ___ Family Conference ___ Bereavement ___ Rapid Response ___ Code Blue ___ Other (describe below) Pastoral Care Referral From _x__ Patient ___ Family ___ Nurse ___ Physician ___ Telephone Clerk Telegraph Office ___ Drapery Estimator ___ Other (describe below) Sacrament/Intervention _x__ Active listening ___ Anointing ___ Lutheran ___ Bereavement ___ Communion ___ Lucia exploration ___ _x__ Life review _x__ Prayer ___ Reconciliation ___ Sacrament of Sick _x__ Supportive presence ___ Wedding ___ Other (describe below) Pastoral Comments patient admits to not feeling great and being alone since in 2017 and all four of her dogs have since; pt has siblings but they do not live in this state; pt says I'm not motivated much but declares that she has no needs or concerns; pt accept a prayer
== END 2022-08-16 16:47 | disposition home health service (06) | DRG 309 ==
LOC: ED 22:17 → PCU 23:21
PROVIDERS: Admitting Provider Hospitalist; Emergency Provider Emergency Medicine; PCP Internal Medicine; Visit Provider Student in an Organized Health Care Education/Training Program
DX: I48.92 Unspecified atrial flutter (principal); M86.9 Osteomyelitis, unspecified; T82.898A Other specified complication of vascular prosthetic devices, implants and grafts, initial encounter; D68.59 Other primary thrombophilia; I13.0 Hypertensive heart and chronic kidney disease with heart failure and stage 1 through stage 4 chronic kidney disease, or unspecified chronic kidney disease; I50.32 Chronic diastolic (congestive) heart failure; I48.0 Paroxysmal atrial fibrillation; E11.22 Type 2 diabetes mellitus with diabetic chronic kidney disease; N18.31 Chronic kidney disease, stage 3a; L98.499 Non-pressure chronic ulcer of skin of other sites with unspecified severity; E86.0 Dehydration; E78.00 Pure hypercholesterolemia, unspecified; E78.5 Hyperlipidemia, unspecified; D64.9 Anemia, unspecified; F41.8 Other specified anxiety disorders; I08.1 Rheumatic disorders of both mitral and tricuspid valves; Z79.82 Long term (current) use of aspirin; Z79.84 Long term (current) use of oral hypoglycemic drugs; B95.62 Methicillin resistant Staphylococcus aureus infection as the cause of diseases classified elsewhere; Z79.01 Long term (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; Z87.891 Personal history of nicotine dependence
CPT/HCPCS: 36415; 71045; 80048; 80202; 82962; 83735; 83880; 84484; 85025; 85610; 93005; 97110; 97162; 97166; 97530; 97535; 97802; 99285; J2997; J7030; J7050; A4216

== ENCOUNTER 2022-08-18 15:05 | Outpatient (RCR) | payer MEDICARE, SELFPAY ==
[2022-08-18 15:52] LABS: Anion Gap 5 (5-15); BUN 44 mg/dL (7-18); BUN/Creat Ratio 35.8 RATIO (10-20); Calcium,Total 9.2 mg/dL (8.5-10.1); Chloride 112 mmol/L (98-107); Creatinine, Serum 1.23 mg/dL (0.55-1.02); EST Glomerular Filtration Rate 46 mL/min (>60); Est Glom Filt Rate - Afr Amer 55 mL/min (>60); Glucose 126 mg/dL (74-106); Sodium Level 141 mmol/L (136-145)
[2022-08-18 15:54] LABS: Vancomycin, Trough Level 16.1 ug/mL (5.0-15.0)
[2022-08-18 16:10] LABS: Hematocrit 35.6 % (37-47); Hemoglobin 10.7 g/dL (12.0-15.0); Mean Corp Hgb Conc 30.1 g/dL (32-36); Mean Corpuscular Volume 89.7 fL (81-99); Mean Platelet Vol. 10.4 fl (6.2-12.0); Platelet Count 332 K/mm3 (150-450); RBC Distribution Width CV 15.8 % (11.6-14.6); RBC Distribution Width SD 51.8 fl (35.1-43.9); Red Blood Count 3.97 M/mm3 (4.2-5.4); White Blood Count 10.1 K/mm3 (4.4-11.0)
[2022-08-18 16:16] LABS: Erythrocyte Sedimentation Rate 57 mm/hr (0-30)
== END 2022-09-12 00:19 | disposition home or self-care (01) ==
LOC: HHLAB 15:05
PROVIDERS: PCP Internal Medicine; Referring Provider Internal Medicine Infectious Disease; Visit Provider Internal Medicine Infectious Disease
DX: M86.9 Osteomyelitis, unspecified (principal)
CPT/HCPCS: 80048; 80202; 85027; 85652

== ENCOUNTER 2022-09-01 12:09 | Outpatient (RCR) | payer MEDICARE, SELFPAY ==
[2022-08-25 17:10] LABS: International Normalized Ratio 2.1; Prothrombin Time (Protime)PT. 23.5 SECONDS (11.7-14.9)
[2022-09-01 15:35] LABS: Absolute Neutrophil Count 8.6 X10^3/uL (2.0-7.7); Basophil# 0.06 X10^3/uL; Basophil% 0.5 % (0-1); Eosinophil# 0.31 X10^3/uL; Eosinophils% 2.8 % (0-5); Hematocrit 40.3 % (37-47); Hemoglobin 12.6 g/dL (12.0-15.0); Lymphocyte % 12.8 % (19-41); Mean Corp Hgb Conc 31.3 g/dL (32-36); Mean Corpuscular Hgb 27.1 pg (27.0-32.0); Mean Corpuscular Volume 86.7 fL (81-99); Mean Platelet Vol. 10.3 fl (6.2-12.0); Monocyte# 0.53 X10^3/uL; Monocyte% 4.8 % (0-10); NRBC Flagged by Analyzer 0 % (0-5); Neutrophil # 8.63 X10^3/uL (2.7-7.7); Neutrophil % 78.7 % (47-70); Platelet Count 423 K/mm3 (150-450); RBC Distribution Width CV 15.8 % (11.6-14.6); RBC Distribution Width SD 50.1 fl (35.1-43.9); Red Blood Count 4.65 M/mm3 (4.2-5.4)
[2022-09-01 15:43] LABS: International Normalized Ratio 1.6; Prothrombin Time (Protime)PT. 18.4 SECONDS (11.7-14.9)
[2022-09-01 15:59] LABS: ALB/GLOB Ratio 0.9 RATIO (0.9-2.4); AST(SGOT) 24 U/L (15-37); Alanine Aminotransfer ALT/SGPT 37 U/L (13-56); Albumin, Serum 3.7 g/dL (3.2-5.0); Alkaline Phosphatase 82 U/L (45-117); Anion Gap 7 (5-15); BUN 58 mg/dL (7-18); BUN/Creat Ratio 38.4 RATIO (10-20); Chloride 107 mmol/L (98-107); Creatinine, Serum 1.51 mg/dL (0.55-1.02); EST Glomerular Filtration Rate 36 mL/min (>60); Est Glom Filt Rate - Afr Amer 44 mL/min (>60); Globulin 4.3 g/dL (2.2-4.2); Glucose 181 mg/dL (74-106); Potassium 4.9 mmol/L (3.5-5.1); Sodium Level 136 mmol/L (136-145); T4 Free Direct 1.19 ng/dL (0.76-1.46); Thyroid Stim Hormone (TSH) 2.59 uIU/mL (0.358-3.74)
== END 2022-09-12 23:59 ==
LOC: BIMLAB 12:09
PROVIDERS: PCP Internal Medicine; Referring Provider Nurse Practitioner Family; Visit Provider Nurse Practitioner Family
DX: I48.0 Paroxysmal atrial fibrillation (principal); R00.0 Tachycardia, unspecified
CPT/HCPCS: 36415; 80053; 84439; 84443; 85025; 85610

== ENCOUNTER 2022-09-06 10:45 | Outpatient (RCR) | payer MEDICARE, SELFPAY ==
[2022-08-14 02:10] VITALS: BP 183/89; PULSE 64; RESP 16; TEMP 37.2; BMI 34.9
[2022-08-23 13:37] VITALS: RESP 18; TEMP 35.9; BMI 34.9
--- NOTE | 2022-08-23 14:08 | PCM.WC.PN ---
History of Present Illness Date of Service: 08/23/22 Chief Complaint: Right long finger ulcer History of Wound: This 72-year-old white female was seen in the emergency room at [facility] for redness and drainage of a right third finger amputation stump site and positive MRSA blood cultures. She was seen in the emergency room 3 days prior and sent home on Keflex but the wound culture came back positive for MRSA and the prescription was changed from Keflex to Bactrim, the morning she was seen in the ER this admission, her blood culture was positive for Staph aureus and she was called to the ED for evaluation. Blood work showed a normal white blood cell count, patient's creatinine was elevated at 2.33 and BUN was 68 patient's blood sugar was 167. 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 Patient was admitted to PCU for a nonhealing amputation stump MRSA ulcer with exposed bone suspicious for osteomyelitis and started on IV antibiotics. She has diabetes mellitus and is at risk for worsening infection that may extend to other parts of the hand which may lead to stiffness and difficulty with range of motion. Surgery 07/12/22 - Surgical preparation right long finger amputation stump ulcer with incision and drainage and excisional debridement MRSA abscess and partial ostectomy middle phalanx for osteomyelitis. Operative tissue cultures positive for Enterobacter cloacae complex and MRSA. Operative bone cultures positive for MRSA and MRSE. She was discharged home on 07/15/22 with a PICC line and IV Vancomycin and oral Cipro. She was seen by ID while hospitalized and is to follow up with him in 2 weeks. She has home health and friends to help with the IV antibiotics and dressing changes. Today she denies fever, chills, nausea or vomiting. Progress of Wound: Right long finger ulcer is improving. The depth on the radial aspect of the ulcer is decreasing. She is tolerating dressing changes well. She was recently in the hospital for new onset Afib/Aflutter Objective Data Objective Data Vital Signs: Vital Signs Temp Pulse Resp BP 96.7 F L 64 18 183/89 H 08/23/22 13:37 08/14/22 02:10 08/23/22 13:37 08/14/22 02:10 Weight: 185 lb Body Mass Index (BMI) 34.9 Charges/Coding Procedures Integumentary [id number]: [id number] Global Visit Debridement Note Debridement Note Wound debrided: long finger stump ulcer Laterality: Right Type of Debridement: Excisional debridement Anesthesia Used: 5% Lidocaine Gel Depth: Down to and including healthy tissue and in the subcutaneous layer Percentage of wound debrided: 100 Instrument Used: 3mm curette Tissue Removed: Devitalized tissue and slough Severity: Fat Layer Exposed Amount of bleeding with debridement: Mild Bleeding Controlled with: Pressure and Compression and gauze Patient tolerated procedure: Patient tolerated procedure well Post-Debridement Measurements and Additional Note: Post-Debridement Measurements/Treatment - Nurse 1 - General Ulcer Assessment Start: 08/23/22 13:36 Freq: Status: Active Protocol: DENG Activity Type Activity Date Activity User E-sign Co-sign Detail Recorded Client Recorded Date Recorded By Document 08/23/22 13:37 RB [id number] 08/23/22 13:41 RB 08/23/22 13:37 WC - Today's Visit Information Type of service 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 Any new allergies or adverse reactions No Had a fall/change in ADL's that may No increase risk of falls Signs or symptoms of abuse and/or No neglect since last visit Have you been in the hospital since your No last visit? Has dressing in place as prescribed No Has compression in place as prescribed No Has offloadiing in place as prescribed No Experienced any changes in pain level or No management Pain Scale: 0-10 Numeric Is Patient Pain Free? Yes - Nurse 1 - General Ulcer Measurement Start: 08/23/22 13:36 Freq: Status: Active Protocol: Activity Type Activity Date Activity User E-sign Co-sign Detail Recorded Client Recorded Date Recorded By Document 08/23/22 13:37 RB [id number] 08/23/22 13:41 RB 08/23/22 13:37 Wound Center Nurse 1 #1- R 3RD FINGER (POST OP) -Combined with other wound No -Current Size (cm) - Length 0.5 -Current Size (cm) - Width 0.9 -Current Size (cm) - Depth 0.2 -Total Square Cm 0.45 -Photo Taken Yes -Tunneling No -Undermining/Tunneling No -Circular Undermining No -Exudate Amt Medium -Exudate Type Serosanguineous -Wound Margin Distinct, Outline Attached -Granulation Amt Medium (34-66%) -Granulation Quality [place] -Slough/Fibrin Yes -Necrosis Amt Medium (34-66%) -Necrotic Tissue Type Adherent Slough -Structure Exposed N/A -Texture (Jessica-wound Skin Appearance) Assessed -Moisture (Jessica-wound Skin Appearance) Assessed -Color (Jessica-wound Skin Appearance) Assessed -Temperature (Jessica-wound Skin No Abnormality Appearance) (Pt Warm) -Tenderness on Palpation (Jessica-wound No Skin Appearance) -Ulcer Cleansing Wound Cleanser -Foul Odor after Cleansing No -Anesthetic Used 5% Lidocaine Gel WC - Nurse 2 - General Ulcer CM Notes Start: 08/23/22 13:36 Freq: Status: Active Protocol: Activity Type Activity Date Activity User E-sign Co-sign Detail Recorded Client Recorded Date Recorded By Document 08/23/22 14:00 [id number] 08/23/22 14:01 08/23/22 14:00 Wound Center Nurse 2 -Time 14:00 -Correct Patient Yes -Correct Side, Site, Position Yes -Correct Procedure Yes -Procedure Performed Yes -Type of Procedure Debridement -Clinical Debridement Subcutaneous -Tissue Removed Subcutaneous -Post Debridement (cm) - Length 0.7 -Post Debridement (cm) - Width 0.5 -Post Debridement (cm) - Depth 0.1 -Total Square (Post) (cm) 0.35 -Area of Debridement (cm) - Length 0.7 -Area of Debridement (cm) - Width 0.5 -Total Square (Area) (cm) 0.35 -Tunneling No -Undermining/Tunneling No -Circular Undermining No -Wound/Ulcer Outcome Not Healed -Ulcer Cleansing Rinsed/ Irrigated with Saline -Foul Odor after Cleansing No -Bioengineered Tissue No -Bleeding Controlled with Pressure -Treatment Response Procedure Tolerated Well -Offloading No -Debridement - Subq, 1st 20sq cm Yes Pain Scale: 0-10 Numeric Is Patient Pain Free? 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 Wound care - Collagen hydrogel covered with adaptic secured with gauze and tape or she can use a band aid to hold the dressing in place, daily. Keep hand elevated. She has completed her IV Vancomycin and oral Cipro. Her PICC line can be discontinued. She follows up with ID in a few weeks. Follow up two weeks.
[2022-09-06 10:50] VITALS: BP 128/80; PULSE 120; RESP 16; TEMP 36.1; BMI 34.9
--- NOTE | 2022-09-06 12:28 | PCM.WC.PN ---
History of Present Illness Date of Service: 09/06/22 Chief Complaint: Right long finger ulcer History of Wound: This 72-year-old white female was seen in the emergency room at [facility] for redness and drainage of a right third finger amputation stump site and positive MRSA blood cultures. She was seen in the emergency room 3 days prior and sent home on Keflex but the wound culture came back positive for MRSA and the prescription was changed from Keflex to Bactrim, the morning she was seen in the ER this admission, her blood culture was positive for Staph aureus and she was called to the ED for evaluation. Blood work showed a normal white blood cell count, patient's creatinine was elevated at 2.33 and BUN was 68 patient's blood sugar was 167. 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 Patient was admitted to PCU for a nonhealing amputation stump MRSA ulcer with exposed bone suspicious for osteomyelitis and started on IV antibiotics. She has diabetes mellitus and is at risk for worsening infection that may extend to other parts of the hand which may lead to stiffness and difficulty with range of motion. Surgery 07/12/22 - Surgical preparation right long finger amputation stump ulcer with incision and drainage and excisional debridement MRSA abscess and partial ostectomy middle phalanx for osteomyelitis. Operative tissue cultures positive for Enterobacter cloacae complex and MRSA. Operative bone cultures positive for MRSA and MRSE. She was discharged home on 07/15/22 with a PICC line and IV Vancomycin and oral Cipro. She was seen by ID while hospitalized and is to follow up with him in 2 weeks. She has home health and friends to help with the IV antibiotics and dressing changes. Today she denies fever, chills, nausea or vomiting. Progress of Wound: Right long finger ulcer is improving. The depth has resolved. She is tolerating dressing changes well. She is complaining of not feeling well today and is SOB with walking and she feels her heart rate is fast. Her heart rate is 140 on oscillation, it is regular. She is not her typical peppy self. Objective Data Objective Data Vital Signs: Vital Signs Temp Pulse Resp BP O2 Del Method 96.9 F L 120 H 16 128/80 H Room Air 09/06/22 10:50 09/06/22 10:50 09/06/22 10:50 09/06/22 10:50 09/06/22 10:50 Oxygen Delivery Method Room Air Weight: 185 lb Body Mass Index (BMI) 34.9 Charges/Coding Procedures Integumentary 111xxx-113xx: [id number] Global Visit Debridement Note Debridement Note Wound debrided: long finger stump ulcer Laterality: Right Type of Debridement: Excisional debridement Anesthesia Used: 5% Lidocaine Gel Depth: Down to and including healthy tissue and in the subcutaneous layer Percentage of wound debrided: 100 Instrument Used: 3mm curette Tissue Removed: Devitalized tissue and slough Severity: Fat Layer Exposed Amount of bleeding with debridement: Mild Bleeding Controlled with: Compression and gauze Patient tolerated procedure: Patient tolerated procedure well Post-Debridement Measurements and Additional Note: Post-Debridement Measurements/Treatment - Nurse 1 - General Ulcer Assessment Start: 08/23/22 13:36 Freq: Status: Active Protocol: [email or web address] Activity Type Activity Date Activity User E-sign Co-sign Detail Recorded Client Recorded Date Recorded By Document 08/23/22 13:37 [id number] 08/23/22 13:41 RB Document 09/06/22 10:50 [facility] [id number] 09/06/22 10:56 [facility] 08/23/22 09/06/22 13:37 10:50 - Today's Visit Information Type of service Follow-up Visit Follow-up Visit (Physician/ACCOUNT OFFICER (Physician/ACCOUNT OFFICER ) ) Arrival Mode Ambulatory, Ambulatory, Walker Walker Transfer Assistance None None Patient Identification Verified (Name & Yes Yes ) Patient Requires Transmission-Based No No Precautions Height and Weight Body Mass Index (BMI) 34.9 34.9 BMI Classification Obese Obese Vital Signs Temperature (97.8 F-99.1 F) 96.7 F L 96.9 F L Temperature Source Temporal Temporal Pulse Rate (60-100) 120 H Pulse Location Monitor Apical Respiratory Rate (12-18) 18 16 Respiratory rate source Observation Observation Oxygen Delivery Method Room Air Blood Pressure (90/60-120/80) 128/80 H Blood Pressure Mean (mm Hg) 96 Source Monitor Monitor Position Sitting Sitting Blood Pressure Location Right Arm Left Arm History Since Last Visit- (Skip if this is Patient's initial visit) Have you changed medications since your No No last visit? Any new allergies or adverse reactions No No Had a fall/change in ADL's that may No No increase risk of falls Signs or symptoms of abuse and/or No No neglect since last visit Have you been in the hospital since your No No last visit? Has dressing in place as prescribed No No Has compression in place as prescribed No N/A Has offloadiing in place as prescribed No N/A Experienced any changes in pain level or No No management Left Footwear Regular Shoe Right Footwear Regular Shoe Pain Scale: 0-10 Numeric Is Patient Pain Free? Yes Yes WC - Nurse 1 - General Ulcer Measurement Start: 08/23/22 13:36 Freq: Status: Active Protocol: Activity Type Activity Date Activity User E-sign Co-sign Detail Recorded Client Recorded Date Recorded By Document 08/23/22 13:37 RB [id number] 08/23/22 13:41 RB Document 09/06/22 10:50 [facility] [id number] 09/06/22 10:56 BMF 08/23/22 09/06/22 13:37 10:50 Wound Center Nurse 1 #1- R 3RD FINGER (POST OP) -Combined with other wound No No -Current Size (cm) - Length 0.5 0.5 -Current Size (cm) - Width 0.9 0.5 -Current Size (cm) - Depth 0.2 0.2 -Total Square Cm 0.45 0.25 -Date of Last Picture (Recall this 09/06/22 field) -Photo Taken Yes Yes -Epithelialization None Present -Tunneling No No -Undermining/Tunneling No No -Circular Undermining No No -Exudate Amt Medium None Present -Exudate Type Serosanguineous -Wound Margin Distinct, Distinct, Outline Outline Attached Attached -Granulation Amt Medium (34-66%) None Present (0 %) -Granulation Quality [place] -Slough/Fibrin Yes Yes -Necrosis Amt Medium (34-66%) Large (67-100%) -Necrotic Tissue Type Adherent Slough Eschar -Structure Exposed N/A -Texture (Jessica-wound Skin Appearance) Assessed Assessed, Scarring -Moisture (Jessica-wound Skin Appearance) Assessed Assessed -Color (Jessica-wound Skin Appearance) Assessed Assessed -Temperature (Jessica-wound Skin No Abnormality No Abnormality Appearance) (Pt Warm) (Pt Warm) -Tenderness on Palpation (Jessica-wound No No Skin Appearance) -Ulcer Cleansing Wound Cleanser Rinsed/ Irrigated with Saline -Foul Odor after Cleansing No No -Anesthetic Used 5% Lidocaine 5% Lidocaine Gel Gel WC - Nurse 2 - General Ulcer CM Notes Start: 08/23/22 13:36 Freq: Status: Active Protocol: Activity Type Activity Date Activity User E-sign Co-sign Detail Recorded Client Recorded Date Recorded By Document 08/23/22 14:00 [id number] 08/23/22 14:01 Document 09/06/22 11:13 [id number] 09/06/22 11:18 08/23/22 09/06/22 14:00 11:13 Wound Center Nurse 2 #1- R 3RD FINGER (POST OP) -Time 14:00 11:14 -Correct Patient Yes Yes -Correct Side, Site, Position Yes Yes -Correct Procedure Yes Yes -Procedure Performed Yes Yes -Type of Procedure Debridement Debridement -Clinical Debridement Subcutaneous Subcutaneous -Tissue Removed Subcutaneous Subcutaneous -Post Debridement (cm) - Length 0.7 0.7 -Post Debridement (cm) - Width 0.5 0.6 -Post Debridement (cm) - Depth 0.1 0.1 -Total Square (Post) (cm) 0.35 0.42 -Area of Debridement (cm) - Length 0.7 0.7 -Area of Debridement (cm) - Width 0.5 0.6 -Total Square (Area) (cm) 0.35 0.42 -Tunneling No No -Undermining/Tunneling No No -Circular Undermining No No -Wound/Ulcer Outcome Not Healed Not Healed -Ulcer Cleansing Rinsed/ Rinsed/ Irrigated with Irrigated with Saline Saline -Foul Odor after Cleansing No No -Bioengineered Tissue No No -Bleeding Controlled with Pressure Pressure -Treatment Response Procedure Procedure Tolerated Well Tolerated Well -Offloading No No -Debridement - Subq, 1st 20sq cm Yes Yes Pain Scale: 0-10 Numeric Is Patient Pain Free? Yes Yes KATELYNN - Nurse 3 - General Ulcer D/C NN Start: 08/23/22 13:36 Freq: Status: Active Protocol: Activity Type Activity Date Activity User E-sign Co-sign Detail Recorded Client Recorded Date Recorded By Document 08/23/22 14:08 [id number] 08/23/22 14:09 Document 09/06/22 11:23 [id number] 09/06/22 11:24 08/23/22 09/06/22 14:08 11:23 Wound Care Center Nurse 3 #1- R 3RD FINGER (POST OP) -Ulcer Cleansing Rinsed/ Rinsed/ Irrigated with Irrigated with Saline Saline -Foul Odor after Cleansing No No -Primary Dressing Applied C Hydrogel ($), NonAdherent NonAdherent Contact Layer Contact Layer -Other Dressing hydrogel -Primary Dressing Covered/Secured with Dry Gauze Dry Gauze -Other Covering bandaid Pain Scale: 0-10 Numeric Is Patient Pain Free? 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 Wound care - Collagen hydrogel covered with adaptic secured with gauze and tape or she can use a band aid to hold the dressing in place, daily. Keep hand elevated. She has completed her IV Vancomycin and oral Cipro. Her PICC was discontinued. She follows up with ID. She is scheduled to see Christine HALEY at cardiology at 1 pm. I phoned the office and discussed the patient's symptoms with a nurse and it was decided to send her to the ED. I phoned the ED and notified them that I was sending her over per cardiology request. Follow up two weeks.
== END 2022-09-12 23:59 | disposition home or self-care (01) ==
LOC: WC 10:45
PROVIDERS: PCP Internal Medicine; Visit Provider Nurse Practitioner Family
DX: T87.89 Other complications of amputation stump (principal); L98.492 Non-pressure chronic ulcer of skin of other sites with fat layer exposed; M86.8X4 Other osteomyelitis, hand; E11.69 Type 2 diabetes mellitus with other specified complication; I48.91 Unspecified atrial fibrillation; Y83.5 Amputation of limb(s) as the cause of abnormal reaction of the patient, or of later complication, without mention of misadventure at the time of the procedure; B95.62 Methicillin resistant Staphylococcus aureus infection as the cause of diseases classified elsewhere; Z79.01 Long term (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; Z79.82 Long term (current) use of aspirin; Z79.84 Long term (current) use of oral hypoglycemic drugs; Z79.899 Other long term (current) drug therapy
CPT/HCPCS: 11042

== ENCOUNTER 2022-09-06 11:45 | Emergency (ER) | payer MEDICARE, SELFPAY ==
[2022-09-06 11:48] VITALS: BP 131/90; PULSE 135; RESP 18; TEMP 36.1; O2SAT 98; BMI 34.4
--- NOTE | 2022-09-06 12:18 | EX.ED.DYSGE1 ---
HPI History of Present Illness Chief Complaint: Chest Other Informant: patient Narrative Narrative: Patient was sent here from the wound center because her A-fib is rapid. She has a chronic wound on her right ring finger, she had an old injury and she is a diabetic and had trouble with that healing, and gets periodic debridements. She states it is doing well and not acutely infected right now. She states she has not felt any rapid heartbeat, dyspnea, chest discomfort, or any other acute symptoms except for some urinary frequency on ROS. She has had a little bit of malaise but has otherwise been feeling fine. She does have a history of A-fib, she is anticoagulated, she has had no major bleeding recently. She states even with walking today, she had no dyspnea. She is on no diuretics. She denies any missed medications lately, she took her morning medications this morning. She states Cardizem was added several weeks ago to her medication regimen and she has been compliant with it. Denies any recent illness other than the above symptoms. No travel out of the area. [facility] Medical History Abnormal mammogram of right breast Abscess of right middle finger Acute kidney injury Alcohol use Anemia Anxiety Anxiety and depression Arthritis Atrial fib/flutter, transient Atrial fibrillation Back pain Bacteremia Breast lump Burn injury of skin of finger Cardiology follow-up encounter Chronic back pain Chronic cough COVID-19 vaccine series completed CPAP (continuous positive airway pressure) dependence CVA (cerebral vascular accident) Depression Depression with anxiety Dietary restriction DKA (diabetic ketoacidoses) Essential hypertension Finger infection Flu vaccine need Former smoker Health care maintenance History of echocardiogram History of edema History of stress test History of UTI Hyperlipidemia Irregular heartbeat Kidney disease 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 MRSA infection 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 without evidence of necrosis Non-rheumatic mitral valve stenosis Nonrheumatic aortic (valve) stenosis Osteoarthritis Osteomyelitis of finger of right hand Osteoporosis Overactive bladder Pancreatitis Paroxysmal atrial fibrillation Paroxysmal atrial fibrillation with RVR Post-menopausal Preoperative evaluation to rule out surgical contraindication Tachycardia Urinary incontinence, overflow Venous insufficiency Vision problems Walker as ambulation aid Weakness Home Medications ferrous sulfate 325 mg (65 mg iron) tablet 325 mg PO DAILY Supplement 01/27/21 [History Last Taken 07/08/22] ascorbic acid (vitamin C) 500 mg tablet (Vitamin C) 500 mg PO DAILY vitamin 08/21/21 [History Last Taken 07/08/22] acetaminophen 325 mg capsule 650 mg PO PRN PRN Pain 12/02/21 [History Last Taken 07/08/22] cholecalciferol (vitamin D3) 50 mcg (2,000 unit) capsule 50 mcg PO DAILY vitamin 03/03/22 [History Last Taken 07/08/22] glimepiride 4 mg tablet 4 mg PO BID dm 3 months #180 tabs 06/24/22 [Rx Last Taken 07/09/22] oxybutynin chloride 15 mg tablet,extended release 24 hr 15 mg PO BID bladder #180 tabs 06/24/22 [Rx Last Taken 07/09/22] sertraline 100 mg tablet (Zoloft) 100 mg PO DAILY anxiety #90 tabs 06/24/22 [Rx Last Taken 07/08/22] metformin 1,000 mg tablet 1,000 mg PO BID DM #180 tabs 07/06/22 [Rx Last Taken 07/09/22] multivitamin 1 tab PO DAILY SUPPLEMENT 07/09/22 [History Last Taken 07/08/22] aspirin 81 mg chewable tablet 81 mg PO BREAKFAST Heart 08/11/22 [History Last Taken Unknown] vancomycin 1 gram/200 mL in dextrose 5 % intravenous piggyback 1,000 mg IV Q24H Antibiotic 08/11/22 [History Last Taken Unknown] diltiazem HCl 240 mg capsule,extended release 24 hr 240 mg PO DAILY #30 caps 08/15/22 [Rx Last Taken Unknown] atorvastatin 20 mg tablet (Lipitor) 20 mg PO DAILY #90 tabs 08/18/22 [Rx Last Taken Unknown] amlodipine 10 mg tablet 10 mg PO DAILY BP 09/01/22 [History Last Taken Unknown] metoprolol succinate 100 mg tablet,extended release 24 hr 100 mg PO BID #60 tabs 09/01/22 [Rx Last Taken Unknown] warfarin 3 mg tablet 3 mg PO DAILY #90 tabs 09/02/22 [Rx Last Taken Unknown] warfarin 2.5 mg tablet See Rx Instructions .Route .COMPLEX #30 TABLETS 09/03/22 [Rx Last Taken Unknown] cephalexin 500 mg capsule 500 mg PO Q8H #15 CAPSULES 09/06/22 [Rx Last Taken Unknown] Allergy/AdvReac Type Severity Reaction Status Date / Time fosinopril [From Monopril] Allergy Unknown unknown Verified 09/06/22 11:50 pioglitazone AdvReac Other Verified 09/06/22 11:50 Family History Father Diabetes High cholesterol Heart disease Melanoma Hypertension Mother Heart disease Brother AIDS (acquired immune deficiency syndrome) Surgical History History of back surgery History of carpal tunnel release History of hand surgery History of hysterectomy History of left elbow replacement History of surgical amputation of finger of right hand Hx of colonoscopy S/P hysterectomy S/P ORIF (open reduction internal fixation) fracture Status post surgical amputation of finger of right hand Social History household members: none Smoking Status: Former smoker how long ago did patient quit smokin years ago alcohol intake: current alcohol intake frequency: holidays/special occasions only substance use type: does not use what type of physical activity do you participate in: other details: aquasize ROS ROS ED Constitutional Constitutional ED: Reports fatigue; Denies body ache(s), chills or fever(s) Eyes Eyes: Denies change in vision or diplopia ENT ENT ED: Denies rhinorrhea or sore throat Cardiovascular Cardiovascular: Denies chest pain, palpitations or racing heartbeat Respiratory/Chest Respiratory/Chest: Denies cough or dyspnea Gastrointestinal Gastrointestinal: Denies abdominal pain, diarrhea, nausea or vomiting Genitourinary Genitourinary ED: Denies dysuria or hematuria Musculoskeletal Musculoskeletal: Denies back pain or neck pain Integumentary Reports as per HPI and wounds; Denies abscess or rash Neurologic Neurologic: Denies headache(s), paresthesias or weakness Psychiatric Psychiatric: Denies anxiety or suicidal thoughts EXAM Physical Exam Const Vital Signs: 09/06/22 11:48 09/06/22 12:55 09/06/22 13:47 Temperature 97 F L Temperature Source Temporal Pulse Rate 135 H 66 Respiratory Rate 18 16 Respiratory Effort Normal Non-Labored Respiratory Pattern Normal Blood Pressure 131/90 H 110/73 Blood Pressure Mean 103 85 Pulse Ox 98 99 Oxygen Delivery Method Room Air Room Air Positive well nourished and well developed General Appearance ED: well developed and NAD HEENT Reports moist mucous membranes normocephalic and atraumatic Eyes PERRL and EOMs intact bilaterally Neck full ROM and supple Resp normal respiratory effort and clear to auscultation bilaterally Cardio Rate: tachycardic Rhythm: abnormal rhythm irregularly irregular GI non-tender and non-distended Auscultation: normoactive bowel sounds Palpation: soft Back/Spine no CVA tenderness General Back: other FROM Extremity normal to inspection Extremity Narrative: Bandaged wound tip of right ring finger General Extremety ED: Negative for edema, pulses abnormal or tenderness General Extremity: Negative for edema or pulses abnormal Neuro oriented x3, CN's II-XII intact bilaterally and no sensory deficits noted Sensorium / Orientation: awake and alert Motor Exam: strength 5/5 throughout Psych mental status grossly normal Skin no rashes or lesions noted MDM MDM MDM Narrative Medical decision making narrative: Patient was given IV Cardizem 15 mg, and on repeat evaluations, she has heart rates in the 60s, appeared to convert to sinus rhythm same QRS complexes before, I do not think we need to do a repeat EKG since she has had no symptoms and has a history of paroxysmal atrial fibrillation. She felt well was ambulatory in the department, we waited a little while for her to provide a urine specimen. I am not concerned about her potassium of 5.2 which is barely out of the normal range, this presents her creatinine is actually lower than usual. Given all of this, I would not change her Cardizem for rate now, she can follow-up for reevaluation, we are still waiting for urine specimen to evaluate for an infection there given her recent urinary frequency and the fact that she was in A-fib with RVR. Patient's urinalysis did return, it is consistent with infection. Therefore we are going to treat her with cephalexin 3 times daily because of her EGFR less than 50 and because she is on warfarin limiting use of other antibiotics that are more likely to interfere with that, and I did send a culture. Lab Data Attestation: I reviewed the patient's lab results. Labs: Laboratory Results - last 24 hr 09/06/22 09/06/22 09/06/22 12:45 12:45 16:13 WBC 8.8 RBC 4.11 L Hgb 11.5 L Hct 36.3 L MCV 88.3 MCH 28.0 MCHC 31.7 L RDW Std Deviation 50.9 H RDW Coeff of Zee 15.6 H Plt Count 306 MPV 10.9 Immature Gran % (Auto) 0.200 Neut % (Auto) 70.1 H Lymph % (Auto) 19.7 Ponce % (Auto) 5.7 Eos % (Auto) 3.6 Baso % (Auto) 0.7 Absolute Neuts (auto) 6.2 Absolute Lymphs (auto) 1.73 Nucleated RBC % 0 Sodium 136 Potassium 5.2 H Chloride 107 Carbon Dioxide 24.0 Anion Gap 5 BUN 47 H Creatinine 1.43 H Estim Creat Clear Calc 27.62 Est GFR (MDRD) Af Amer 47 L Est GFR (MDRD) Non-Af 39 L BUN/Creatinine Ratio 32.9 H Glucose 164 H Calcium 9.6 Urine Color Yellow Urine Clarity Sl. Cloudy Urine pH 8.0 Ur Specific [place] 1.010 Urine Protein 30 H Urine Glucose (UA) Normal Urine Ketones Negative Urine Occult Blood 10 H Urine Nitrite Positive H Urine Bilirubin Negative Urine Urobilinogen Normal Ur Leukocyte Esterase 500 H Rhythm Strip Rhythm Strip: A-fib Rate: 130 Ectopy: None EKG Initial EKG: Attestation: I personally reviewed and interpreted this EKG as follows: Interpretation: No Acute Injury Pattern and Atrial Fibrillation Discharge Plan Triage Chief Complaint: Chest Other ED Provider: Tj Manzano Dx/Rx/DC Orders Clinical Impression: Paroxysmal atrial fibrillation, Acute UTI Instructions: ED AFIB Prescriptions: New cephalexin [cephalexin] 500 mg capsule 500 mg PO Q8H Qty: 15 0RF No Action acetaminophen 325 mg capsule 650 mg PO PRN PRN (Reason: Pain) cholecalciferol (vitamin D3) 50 mcg (2,000 unit) capsule 50 mcg PO DAILY metoprolol succinate 100 mg tablet extended release 24 hr 100 mg PO BID Qty: 60 1RF amlodipine 10 mg tablet 10 mg PO DAILY Label Comments: Hold for systolic BP less than 120 mmHg. ferrous sulfate 325 mg (65 mg iron) tablet 325 mg PO DAILY ascorbic acid (vitamin C) [Vitamin C] 500 mg Tablet 500 mg PO DAILY multivitamin Tablet 1 tab PO DAILY aspirin 81 mg tablet,chewable 81 mg PO BREAKFAST vancomycin in dextrose 5 % 1 gram/200 mL piggyback 1,000 mg IV Q24H Rx Instructions: stop date 08/23/22 dx: finger osteomyelitis weekly bmp, cbc, esr, and vanc trough. Fax to [phone] routine picc care per protocol diltiazem HCl 240 mg Capsule,Extended Release 24hr 240 mg PO DAILY Qty: 30 0RF glimepiride 4 mg tablet 4 mg PO BID 90 Days Qty: 180 3RF oxybutynin chloride 15 mg tablet extended release 24hr 15 mg PO BID Qty: 180 1RF sertraline [Zoloft] 100 mg tablet 100 mg PO DAILY Qty: 90 0RF metformin 1,000 mg tablet 1,000 mg PO BID Qty: 180 3RF atorvastatin [Lipitor] 20 mg tablet 20 mg PO DAILY Qty: 90 2RF warfarin 3 mg tablet 3 mg PO DAILY Qty: 90 2RF warfarin 2.5 mg tablet See Rx Instructions .ROUTE .COMPLEX Qty: 30 0RF Dose Instruction: TAKE 1 TABLET BY MOUTH EVERY DAY WITH DINNER Rx Instructions: TAKE 1 TABLET BY MOUTH EVERY DAY WITH DINNER Primary Care Provider: Sulma Reagan Referrals: Sulma Reagan MD [Primary Care Provider] - (And/or your bit bender within the next week) Disposition Disposition: Home, Self Care
[2022-09-06] MEDS: dilTIAZem 25 MG/5 ML Vial 15 MG IV BOLUS (12:48)
[2022-09-06 13:06] LABS: Absolute Lymphocyte Count 1.73 X10^3/uL (0.83-4.51); Absolute Neutrophil Count 6.2 X10^3/uL (2.0-7.7); Basophil# 0.06 X10^3/uL; Basophil% 0.7 % (0-1); Eosinophil# 0.32 X10^3/uL; Eosinophils% 3.6 % (0-5); Hematocrit 36.3 % (37-47); Hemoglobin 11.5 g/dL (12.0-15.0); Lymphocyte # 1.73 X10^3/ul (0.83-4.51); Lymphocyte % 19.7 % (19-41); Mean Corp Hgb Conc 31.7 g/dL (32-36); Mean Corpuscular Volume 88.3 fL (81-99); Mean Platelet Vol. 10.9 fl (6.2-12.0); Monocyte% 5.7 % (0-10); NRBC Flagged by Analyzer 0 % (0-5); Neutrophil # 6.16 X10^3/uL (2.7-7.7); Neutrophil % 70.1 % (47-70); Platelet Count 306 K/mm3 (150-450); RBC Distribution Width CV 15.6 % (11.6-14.6); RBC Distribution Width SD 50.9 fl (35.1-43.9); Red Blood Count 4.11 M/mm3 (4.2-5.4); White Blood Count 8.8 K/mm3 (4.4-11.0)
[2022-09-06 13:23] LABS: Anion Gap 5 (5-15); BUN 47 mg/dL (7-18); BUN/Creat Ratio 32.9 RATIO (10-20); Calcium,Total 9.6 mg/dL (8.5-10.1); Chloride 107 mmol/L (98-107); Creatinine, Serum 1.43 mg/dL (0.55-1.02); EST Glomerular Filtration Rate 39 mL/min (>60); Est Glom Filt Rate - Afr Amer 47 mL/min (>60); Estimated Creatinine Clearance 27.62 ml/min; Glucose 164 mg/dL (74-106); Potassium 5.2 mmol/L (3.5-5.1); Sodium Level 136 mmol/L (136-145)
[2022-09-06 13:47] VITALS: BP 110/73; PULSE 66; RESP 16; O2SAT 99
[2022-09-06 15:00] VITALS: BP 108/71; PULSE 69; RESP 18; O2SAT 98
[2022-09-06 16:20] LABS: Bacteria 0 SEEN /hpf (None Seen); Mucous, Urine 0 SEEN /hpf (<or=2+)
[2022-09-06 16:22] LABS: Color, Urine Yellow (Yellow); Glucose, Dipstick Normal (Normal); Ketone-Dipstick Negative (Negative); Leukocyte Esterase-Dipstick 500 /ul (Negative); Nitrite-Dipstick Positive (Negative); Occult Blood-Urine 10 /ul (Negative); Protein-Dipstick 30 mg/dl (Negative); Urine Bilirubin Dipstick Negative (Negative); Urine Clarity Sl. Cloudy (Clear); Urine Urobilinogen Normal (Normal)
[2022-09-06 17:00] VITALS: BP 105/76; PULSE 72; RESP 16; O2SAT 99
[2022-09-06] MEDS: Cephalexin 250 MG Capsule 500 MG PO (17:08)
[2022-09-06 17:12] VITALS: BP 107/73; PULSE 75; RESP 16; TEMP 36.7; O2SAT 99
[2022-09-06 17:22] LABS: Red Blood Cells-Urine 0-5 SEEN /hpf (0-5); Squamous Epithelial Cells - UA 0-5 SEEN /hpf (5-10); Triple Phosphate Crystals Ur 2+ /hpf (<or=1+); White Blood Cells 10-25 SEEN /hpf (0-5)
[2022-09-06 17:23] LABS: Amorphous Sediment 1+ PHOS
== END 2022-09-06 17:15 | disposition home or self-care (01) ==
PROVIDERS: Emergency Provider Emergency Medicine; PCP Internal Medicine; Visit Provider Emergency Medicine
DX: I48.0 Paroxysmal atrial fibrillation (principal); T87.89 Other complications of amputation stump; L98.492 Non-pressure chronic ulcer of skin of other sites with fat layer exposed; M86.8X4 Other osteomyelitis, hand; E11.69 Type 2 diabetes mellitus with other specified complication; N39.0 Urinary tract infection, site not specified; Z87.891 Personal history of nicotine dependence; E78.5 Hyperlipidemia, unspecified; I10 Essential (primary) hypertension; Z79.01 Long term (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; Z79.899 Other long term (current) drug therapy; Z79.84 Long term (current) use of oral hypoglycemic drugs; F41.8 Other specified anxiety disorders; Z79.82 Long term (current) use of aspirin; Z99.89 Dependence on other enabling machines and devices; Y83.5 Amputation of limb(s) as the cause of abnormal reaction of the patient, or of later complication, without mention of misadventure at the time of the procedure; B95.62 Methicillin resistant Staphylococcus aureus infection as the cause of diseases classified elsewhere
CPT/HCPCS: 96374; 99284; 11042; 80048; 81001; 85025; 87086; 87088

== ENCOUNTER 2022-09-09 14:30 | Inpatient (IN) | payer MEDICARE, SELFPAY ==
[2022-09-09] VITALS (14 sets, daily range): BP systolic 124–158; BP diastolic 59–88; PULSE 62–76; RESP 19–26; TEMP 36.4–36.7; O2SAT 85–96; BMI 34.4; BMI 36.1
--- NOTE | 2022-09-09 14:52 | EKG12_ITS ---
Test Reason : SOB Blood Pressure : / mmHG Vent. Rate : 066 BPM Atrial Rate : 066 BPM P-R Int : 166 ms QRS Dur : 072 ms QT Int : 416 ms P-R-T Axes : 087 051 021 degrees QTc Int : 436 ms Normal sinus rhythm Normal ECG Confirmed by LESLY CALLOWAY, SOCORRO ([id number]), supervising film or videotape editor AMALIA MEJIA ([id number]) on 09/13/2022 11:42:31 AM Referred By: Confirmed By:LAURA GRACE MD
--- NOTE | 2022-09-09 15:05 | RAD_ITS ---
STUDY: X-RAY CHEST REASON FOR EXAM: Female, 72 years old. SOB TECHNIQUE: Single AP portable view of the chest. COMPARISON: 08/11/2022 FINDINGS: Bilateral patchy airspace disease throughout the lung parenchyma is present concerning for multifocal infiltrates. There is no demonstrated pleural abnormality. Normal size heart. Normal mediastinum and nevin. Normal visualized pulmonary arteries. Normal visualized aortic arch and descending thoracic aorta. Normal visualized thoracic spine. Normal visualized ribs, clavicles, and shoulders. There is no demonstrated abnormality of the visualized soft tissue structures of the upper abdomen. RAD/Chest 1 View (Portable) IMPRESSION: Bilateral multiple areas of opacity concerning for multifocal infiltrates/pneumonia in the appropriate clinical setting. Other considerations would include scattered alveolar edema in the cardiogenic setting. Recommend follow-up imaging in 4-6 weeks after appropriate treatment to document resolution and exclude underlying pulmonary nodularity. Electronically Signed: Alexis Christian DO at 15:21 EDT ,
[2022-09-09 15:10] LABS: Absolute Lymphocyte Count 0.74 X10^3/uL (0.83-4.51); Absolute Neutrophil Count 11.4 X10^3/uL (2.0-7.7); Basophil# 0.05 X10^3/uL; Basophil% 0.4 % (0-1); Eosinophil# 0.08 X10^3/uL; Eosinophils% 0.6 % (0-5); Hematocrit 38.3 % (37-47); Hemoglobin 11.8 g/dL (12.0-15.0); Lymphocyte # 0.74 X10^3/ul (0.83-4.51); Lymphocyte % 5.9 % (19-41); Mean Corp Hgb Conc 30.8 g/dL (32-36); Mean Corpuscular Hgb 27.2 pg (27.0-32.0); Mean Corpuscular Volume 88.2 fL (81-99); Mean Platelet Vol. 10.4 fl (6.2-12.0); Monocyte# 0.28 X10^3/uL; Monocyte% 2.2 % (0-10); NRBC Flagged by Analyzer 0 % (0-5); Neutrophil # 11.39 X10^3/uL (2.7-7.7); Neutrophil % 90.4 % (47-70); Platelet Count 275 K/mm3 (150-450); RBC Distribution Width CV 15.4 % (11.6-14.6); RBC Distribution Width SD 50.3 fl (35.1-43.9); Red Blood Count 4.34 M/mm3 (4.2-5.4); White Blood Count 12.6 K/mm3 (4.4-11.0)
[2022-09-09 15:27] LABS: Anion Gap 4 (5-15); BUN 36 mg/dL (7-18); BUN/Creat Ratio 27.9 RATIO (10-20); Calcium,Total 9.9 mg/dL (8.5-10.1); Chloride 108 mmol/L (98-107); Creatinine, Serum 1.29 mg/dL (0.55-1.02); EST Glomerular Filtration Rate 43 mL/min (>60); Est Glom Filt Rate - Afr Amer 52 mL/min (>60); Estimated Creatinine Clearance 30.62 ml/min; Glucose 226 mg/dL (74-106); Sodium Level 136 mmol/L (136-145); Troponin-I HS 11 pg/mL (3.0-54.0)
[2022-09-09] MEDS: Ipratropium/Albuterol Sulfate 3 ML AMPUL.NEB INHALATION ×3 (15:34→23:20)
--- NOTE | 2022-09-09 15:37 | ED.VIS.DYS ---
HPI History of Present Illness Chief Complaint: Shortness of Breath Narrative Narrative: 72-year-old female presenting with shortness of breath. She states has been short of breath for the last 2 days. Denies fever, chills, body aches. Patient states that she does not typically wear home oxygen. She states her oxygen was in the 80s at home. She is currently on 6 L and she is comfortable. She denies any chest pain. Patient states that yesterday she felt as if she was wheezing. She denies a history of COPD but she was a previous smoker when she was younger. No history of asthma. Patient does have history of paroxysmal A-fib and is on Coumadin. Denies black or bloody stools. [facility] Medical History Abnormal mammogram of right breast Abscess of right middle finger Acute kidney injury Alcohol use Anemia Anxiety Anxiety and depression Arthritis Atrial fib/flutter, transient Atrial fibrillation Back pain Bacteremia Breast lump Burn injury of skin of finger Cardiology follow-up encounter Chronic back pain Chronic cough COVID-19 vaccine series completed CPAP (continuous positive airway pressure) dependence CVA (cerebral vascular accident) Depression Depression with anxiety Dietary restriction DKA (diabetic ketoacidoses) Essential hypertension Finger infection Flu vaccine need Former smoker Health care maintenance History of echocardiogram History of edema History of stress test History of UTI Hyperlipidemia Irregular heartbeat Kidney disease half-way (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 MRSA infection 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 without evidence of necrosis Non-rheumatic mitral valve stenosis Nonrheumatic aortic (valve) stenosis Osteoarthritis Osteomyelitis of finger of right hand Osteoporosis Overactive bladder Pancreatitis Paroxysmal atrial fibrillation Paroxysmal atrial fibrillation with RVR Post-menopausal Preoperative evaluation to rule out surgical contraindication Stage 3b chronic kidney disease (CKD) Tachycardia Urinary incontinence, overflow Venous insufficiency Vision problems Walker as ambulation aid Weakness Home Medications acetaminophen 325 mg capsule 650 mg PO PRN PRN Pain 12/02/21 [History Last Taken 07/08/22] amlodipine 10 mg tablet 10 mg PO DAILY BP #90 tabs 09/07/22 [Rx Last Taken Unknown] ascorbic acid (vitamin C) 500 mg tablet (Vitamin C) 500 mg PO DAILY vitamin #90 tabs 09/07/22 [Rx Last Taken Unknown] aspirin 81 mg chewable tablet 81 mg PO BREAKFAST Heart #90 tabs 09/07/22 [Rx Last Taken Unknown] cholecalciferol (vitamin D3) 50 mcg (2,000 unit) capsule 50 mcg PO DAILY vitamin #90 caps 09/07/22 [Rx Last Taken Unknown] ferrous sulfate 325 mg (65 mg iron) tablet 325 mg PO DAILY Supplement #90 tabs 09/07/22 [Rx Last Taken Unknown] glimepiride 4 mg tablet 4 mg PO BID dm 3 months #180 tabs 09/07/22 [Rx Last Taken Unknown] metformin 1,000 mg tablet 1,000 mg PO BID DM #180 tabs 09/07/22 [Rx Last Taken Unknown] multivitamin 1 tab PO DAILY SUPPLEMENT #90 tabs 09/07/22 [Rx Last Taken Unknown] oxybutynin chloride 15 mg tablet,extended release 24 hr 15 mg PO BID bladder #180 tabs 09/07/22 [Rx Last Taken Unknown] sertraline 100 mg tablet (Zoloft) 100 mg PO DAILY anxiety #90 tabs 09/07/22 [Rx Last Taken Unknown] atorvastatin 20 mg tablet (Lipitor) 20 mg PO DAILY Check with primary doctor 09/09/22 [History Last Taken Unknown] cephalexin 500 mg capsule 500 mg PO Q8H Check with primary doctor 09/09/22 [History Last Taken Unknown] diltiazem HCl 240 mg capsule,extended release 24 hr (Cardizem CD) 240 mg PO DAILY heart 09/09/22 [History Last Taken Unknown] metoprolol succinate 100 mg tablet,extended release 24 hr 100 mg PO BID Check with primary doctor 09/09/22 [History Last Taken Unknown] warfarin 3 mg tablet 3 mg PO DAILY Check with primary doctor 09/09/22 [History Last Taken Unknown] warfarin 6 mg tablet 6 mg PO QWEEK Check with primary doctor 09/09/22 [History Last Taken Unknown] Allergy/AdvReac Type Severity Reaction Status Date / Time fosinopril [From Monopril] Allergy Unknown unknown Verified 09/09/22 14:34 pioglitazone AdvReac Other Verified 09/09/22 14:34 Family History Father Diabetes High cholesterol Heart disease Melanoma Hypertension Mother Heart disease Brother AIDS (acquired immune deficiency syndrome) Surgical History History of back surgery History of carpal tunnel release History of hand surgery History of hysterectomy History of left elbow replacement History of surgical amputation of finger of right hand Hx of colonoscopy S/P hysterectomy S/P ORIF (open reduction internal fixation) fracture Status post surgical amputation of finger of right hand Social History household members: none Smoking Status: Former smoker how long ago did patient quit smokin years ago alcohol intake: current alcohol intake frequency: holidays/special occasions only substance use type: does not use what type of physical activity do you participate in: other details: aquasize ROS ROS ED Review of Systems ROS Unobtainable: Denies due to encephalopathy Constitutional Constitutional ED: Denies chills or fever(s) Eyes Eyes: Denies change in vision or diplopia ENT ENT ED: Denies rhinorrhea or sore throat Cardiovascular Cardiovascular: Denies chest pain or palpitations Respiratory/Chest Respiratory/Chest: Reports dyspnea and dyspnea on exertion; Denies cough Gastrointestinal Gastrointestinal: Denies abdominal pain, nausea or vomiting Musculoskeletal Musculoskeletal: Denies arthralgias or back pain Integumentary Denies abscess or Abrasions Neurologic Neurologic: Denies headache(s) or paresthesias Psychiatric Psychiatric: Denies anxiety EXAM Physical Exam Const Vital Signs: 09/09/22 14:31 09/09/22 14:43 09/09/22 14:49 Temperature 97.7 F L Temperature Source Temporal Pulse Rate 67 Respiratory Rate 20 H Respiratory Effort Short of Breath Respiratory Pattern Blood Pressure 138/88 H Blood Pressure Mean 104 Pulse Ox 85 91 Oxygen Delivery Method Room Air Nasal Cannula Oxygen Flow Rate (L/min) 09/09/22 15:00 09/09/22 15:00 09/09/22 15:41 Temperature Temperature Source Pulse Rate 62 Respiratory Rate 26 H 26 H Respiratory Effort Respiratory Pattern Tachypnea Blood Pressure Blood Pressure Mean Pulse Ox 91 91 Oxygen Delivery Method Nasal Cannula Oxygen Flow Rate (L/min) 09/09/22 16:32 09/09/22 16:32 Temperature 97.9 F Temperature Source Temporal Pulse Rate 69 Respiratory Rate 23 H Respiratory Effort Respiratory Pattern Blood Pressure 155/77 H 155/77 H Blood Pressure Mean 103 103 Pulse Ox 95 Oxygen Delivery Method Non-Rebreather @ 15L/min Oxygen Flow Rate (L/min) Positive well nourished HEENT Reports dry mucous membranes Mouth ED: Yes dry mucous membranes Mouth: dry mucous membranes Eyes PERRL and EOMs intact bilaterally Neck no lymphadenopathy and supple Resp Resp Narrative: Tachypneic. Speaking in full sentences. Auscultation: wheezes scattered wheezes Cardio regular rate and regular rhythm GI non-tender Extremity normal to inspection General Extremety ED: Negative for edema or tenderness General Extremity: Negative for edema Neuro oriented x3 and CN's II-XII intact bilaterally Sensorium / Orientation: alert Motor Exam: strength 5/5 throughout Psych mental status grossly normal Skin no wounds Sepsis Attestation Sepsis Alert: Yes Sepsis Attestation: Agree w/Sepsis Date exam was performed: 09/09/22 Time exam was performed: 18:17 Possible Source of Sepsis: Pulmonary Sepsis Organ Dysfunction Criteria Present: Acute Respiratory Failure (New need for BiPAP/CPAP or MV) and Lactic Acid > 2 mmol/L MDM MDM MDM Narrative Medical decision making narrative: 72-year-old female presenting with tachypnea, hypoxia. Sepsis work-up was pursued. She does state that she has been very short of breath. Differential includes COVID-19, influenza, pneumonia, ACS, CHF, PE. Patient's INR has been subtherapeutic. Patient reports no fevers or chills. CBC obtained shows leukocytosis of 12.6. Hemoglobin stable 11.8. Platelets are normal. Creatinine 1.29 did show some improvement. Potassium 5.0. CO2 24. Glucose 226 without anion gap. LFTs are normal. BNP 272 and lower than previous. High-sensitivity troponin is 11. Urinalysis was negative for infection. Chest x-ray on my interpretation shows concern for multifocal pneumonia versus CHF. CTA of the chest was obtained which is concerning for CHF and multifocal pneumonia. Patient was covered with vancomycin and Zosyn given her MRSA history. Discussed with hospitalist for admission. Impression: 1. Pneumonia 2. Hypoxic respiratory failure 3. Sepsis 4. CHF Lab Data Labs: Laboratory Results - last 24 hr 09/09/22 09/09/22 09/09/22 14:50 14:50 14:50 WBC 12.6 H RBC 4.34 Hgb 11.8 L Hct 38.3 MCV 88.2 MCH 27.2 MCHC 30.8 L RDW Std Deviation 50.3 H RDW Coeff of Zee 15.4 H Plt Count 275 MPV 10.4 Immature Gran % (Auto) 0.500 Neut % (Auto) 90.4 H Lymph % (Auto) 5.9 L Barnes % (Auto) 2.2 Eos % (Auto) 0.6 Baso % (Auto) 0.4 Absolute Neuts (auto) 11.4 H Absolute Lymphs (auto) 0.74 L Nucleated RBC % 0 PT INR Sodium 136 Potassium 5.0 Chloride 108 H Carbon Dioxide 24.0 Anion Gap 4 L BUN 36 H Creatinine 1.29 H Estim Creat Clear Calc 30.62 Est GFR (MDRD) Af Amer 52 L Est GFR (MDRD) Non-Af 43 L BUN/Creatinine Ratio 27.9 H Glucose 226 H Lactic Acid Calcium 9.9 Total Bilirubin 0.40 Direct Bilirubin 0.12 AST 24 ALT 37 Alkaline Phosphatase 83 Troponin I High Sens 11 B-Natriuretic Peptide Total Protein 7.7 Albumin 3.4 Globulin 4.3 H Urine Color Urine Clarity Urine pH Ur Specific [place] Urine Protein Urine Glucose (UA) Urine Ketones Urine Occult Blood Urine Nitrite Urine Bilirubin Urine Urobilinogen Ur Leukocyte Esterase Urine RBC Urine WBC Ur Squamous Epith Cells Urine Bacteria Urine Mucus 09/09/22 09/09/22 09/09/22 14:50 14:50 15:35 WBC RBC Hgb Hct MCV MCH MCHC RDW Std Deviation RDW Coeff of Zee Plt Count MPV Immature Gran % (Auto) Neut % (Auto) Lymph % (Auto) Barnes % (Auto) Eos % (Auto) Baso % (Auto) Absolute Neuts (auto) Absolute Lymphs (auto) Nucleated RBC % PT Cancelled INR Cancelled Sodium Potassium Chloride Carbon Dioxide Anion Gap BUN Creatinine Estim Creat Clear Calc Est GFR (MDRD) Af Amer Est GFR (MDRD) Non-Af BUN/Creatinine Ratio Glucose Lactic Acid 2.7 H* Calcium Total Bilirubin Direct Bilirubin AST ALT Alkaline Phosphatase Troponin I High Sens B-Natriuretic Peptide 272.2 H Total Protein Albumin Globulin Urine Color Urine Clarity Urine pH Ur Specific [place] Urine Protein Urine Glucose (UA) Urine Ketones Urine Occult Blood Urine Nitrite Urine Bilirubin Urine Urobilinogen Ur Leukocyte Esterase Urine RBC Urine WBC Ur Squamous Epith Cells Urine Bacteria Urine Mucus 09/09/22 09/09/22 15:45 16:30 WBC RBC Hgb Hct MCV MCH MCHC RDW Std Deviation RDW Coeff of Zee Plt Count MPV Immature Gran % (Auto) Neut % (Auto) Lymph % (Auto) Barnes % (Auto) Eos % (Auto) Baso % (Auto) Absolute Neuts (auto) Absolute Lymphs (auto) Nucleated RBC % PT 20.0 H INR 1.7 Sodium Potassium Chloride Carbon Dioxide Anion Gap BUN Creatinine Estim Creat Clear Calc Est GFR (MDRD) Af Amer Est GFR (MDRD) Non-Af BUN/Creatinine Ratio Glucose Lactic Acid Calcium Total Bilirubin Direct Bilirubin AST ALT Alkaline Phosphatase Troponin I High Sens B-Natriuretic Peptide Total Protein Albumin Globulin Urine Color Yellow Urine Clarity Clear Urine pH 6.0 Ur Specific [place] 1.015 Urine Protein 30 H Urine Glucose (UA) Normal Urine Ketones Negative Urine Occult Blood Negative Urine Nitrite Negative Urine Bilirubin Negative Urine Urobilinogen Normal Ur Leukocyte Esterase 25 H Urine RBC 0 SEEN Urine WBC 0 SEEN Ur Squamous Epith Cells 0-5 SEEN Urine Bacteria 0 SEEN Urine Mucus 0 SEEN Radiography Diagnostic Testing: Clinical Impression(s) from Imaging Studies Chest X-Ray 09/09/22 15:05 IMPRESSION: Bilateral multiple areas of opacity concerning for multifocal infiltrates/pneumonia in the appropriate clinical setting. Other considerations would include scattered alveolar edema in the cardiogenic setting. Recommend follow-up imaging in 4-6 weeks after appropriate treatment to document resolution and exclude underlying pulmonary nodularity. Electronically Signed: Alexis Christian DO at 15:21 EDT , Chest CTA 09/09/22 16:46 IMPRESSION: 1. No evidence of pulmonary embolism or aortic dissection. 2. Scattered prominent central areas of groundglass opacity and airspace disease predominantly within the perihilar region and upper lobes and mildly within the lower lobes with small layering effusion most concerning for underlying alveolar edema in the setting of CHF, clinically correlate. In the infectious setting multifocal infiltrates/pneumonia is not excluded. 3. Lower esophageal prominent fluid bolus prior to GE junction. Electronically Signed: Alexis Christian DO at 18:07 EDT , Discharge Plan Disposition Disposition: Acute Care Hospital [facility] Discharge Date/Time: 09/09/22 17:36
[2022-09-09] MEDS: Albuterol 2.5 MG/3 ML VIAL.NEB. INHALATION (15:40)
[2022-09-09 15:53] LABS: AST(SGOT) 24 U/L (15-37); Alanine Aminotransfer ALT/SGPT 37 U/L (13-56); Albumin, Serum 3.4 g/dL (3.2-5.0); Alkaline Phosphatase 83 U/L (45-117); Bilirubin, Direct 0.12 mg/dL (0.00-0.30); Globulin 4.3 g/dL (2.2-4.2); Protein, Total 7.7 g/dL (6.4-8.2)
[2022-09-09 16:02] LABS: International Normalized Ratio 1.7
[2022-09-09] MEDS: MethylPREDNISolone 125 MG/2 ML Vial IV (16:11)
[2022-09-09 16:29] LABS: Lactic Acid 2.7 mmol/L (0.4-1.9)
[2022-09-09 16:39] LABS: BNP,B-Type NATRIURETIC PEPTIDE 272.2 pg/mL (0-100)
[2022-09-09 16:42] LABS: Bacteria 0 SEEN /hpf (None Seen); Mucous, Urine 0 SEEN /hpf (<or=2+); Red Blood Cells-Urine 0 SEEN /hpf (0-5); White Blood Cells 0 SEEN /hpf (0-5)
--- NOTE | 2022-09-09 16:46 | CT_ITS ---
STUDY: CTA CHEST REASON FOR EXAM: Female, 72 years old. abn CXR RADIATION DOSAGE (If Supplied By Facility): CTDIvol = ( 12.43 ) mGy, DLP = ( 517.39 ) mGycm TECHNIQUE: The examination was performed with the intravenous administration of IV 100mL [id number]-[id number]. Post-processing of the angiographic images was performed, with multiplanar reformation and 3D reconstruction. Individualized dose optimization techniques were used for this CT. COMPARISON: 09/09/2022 plain film FINDINGS: Normal enhancement of the main pulmonary artery and right and left pulmonary arteries. Normal enhancement of the bilateral peripheral pulmonary arteries. There is no demonstrated pulmonary embolism. Normal thoracic aorta and visualized great vessels. There is no demonstrated aortic dissection. Normal heart and pericardium. There are calcifications of the coronary arteries. Normal mediastinum. Normal hilar regions. Normal visualized trachea and bronchi. The lungs are well expanded. Scattered areas of groundglass opacity throughout the bilateral upper lobes and lower lobes to a lesser degree. Small bilateral pleural effusions are present. Normal chest wall structures. There are degenerative changes of thoracic spine. There is dilatation of the distal esophagus consistent with food bolus measuring 3.[address]/CTA Chest W/WO Contrast IMPRESSION: 1. No evidence of pulmonary embolism or aortic dissection. 2. Scattered prominent central areas of groundglass opacity and airspace disease predominantly within the perihilar region and upper lobes and mildly within the lower lobes with small layering effusion most concerning for underlying alveolar edema in the setting of CHF, clinically correlate. In the infectious setting multifocal infiltrates/pneumonia is not excluded. 3. Lower esophageal prominent fluid bolus prior to GE junction. Electronically Signed: Alexis Christian DO at 18:07 EDT ,
[2022-09-09 16:50] LABS: Color, Urine Yellow (Yellow); Glucose, Dipstick Normal (Normal); Ketone-Dipstick Negative (Negative); Leukocyte Esterase-Dipstick 25 /ul (Negative); Nitrite-Dipstick Negative (Negative); Occult Blood-Urine Negative /ul (Negative); Protein-Dipstick 30 mg/dl (Negative); Specific Gravity, Urine 1.015 (1.002-1.030); Urine Bilirubin Dipstick Negative (Negative); Urine Clarity Clear (Clear); Urine Urobilinogen Normal (Normal)
[2022-09-09 16:58] LABS: Squamous Epithelial Cells - UA 0-5 SEEN /hpf (5-10)
--- NOTE | 2022-09-09 17:06 | PCM.HP.STD ---
HPI - General General Date of Admission: 09/09/22 Date of Service: 09/09/22 Chief Complaint: Shortness of breath HPI Narrative JOSELINE RIDDLE, is a 72 F who presented to the emergency department at [facility] on 09/09/2022 with a chief complaint of shortness of breath. Patient states that she has had increased shortness of breath for about 2 days now. She had some increased cough last night with no production of sputum. She denies any fever or chills, nausea vomiting, diarrhea or constipation, myalgias, malaise, orthopnea, dysuria but does states she has some urinary frequency, tingling, numbness, or focal weakness. She has had some mild generalized weakness. She normally does not wear oxygen. She has been compliant with her home medications. She does have a history of tobacco use. She did check her oxygen saturations prior to calling the squad and her sats were found to be 80% on room air at home. She does have some lower extremity edema however she reports this is not increased from her baseline. Vital signs on presentation show a temperature of 97.7, heart rate 67, blood pressure 138/88, respiratory rate been anywhere between 20 and 26 and oxygen saturation was 85% on room air. She initially was placed on 6 L with improvement to 91% however now is requiring a nonrebreather at 15 L/min. She seems comfortable on 15 L and sats are between 92 and 95%. CBC shows a leukocytosis with a white count of 12.6 and a left shift is present with a 90.4% neutrophilia. She has a mild anemia with a hemoglobin of 11.8. This is normocytic and chronic. Coags were obtained as the patient is on Coumadin and her INR was found to be 1.7. Chemistry panel shows normal electrolytes with an elevated BUN/creatinine at 36 and 1.29 which is her baseline. Serum glucose was 226. Her lactic acid was 2.7. Liver functions normal. Troponin was 11. BNP was 272.2 however this is dramatically improved from her most recent admission earlier this month. At that time her BNP was greater than 700. Her UA is not suggestive of infection however she had a urine culture done 5 days ago which is growing gram-negative rods (lactose asset availability leader) and she has not been on antibiotics. EKG shows normal sinus rhythm without any ST-T wave changes concerning for acute ischemia and intervals are normal. Chest x-ray shows bilateral patchy multifocal infiltrates in both lung sawyer. [facility] Medical History Abnormal mammogram of right breast Abscess of right middle finger Acute kidney injury Alcohol use Anemia Anxiety Anxiety and depression Arthritis Atrial fib/flutter, transient Atrial fibrillation Back pain Bacteremia Breast lump Burn injury of skin of finger Cardiology follow-up encounter Chronic back pain Chronic cough COVID-19 vaccine series completed CPAP (continuous positive airway pressure) dependence CVA (cerebral vascular accident) Depression Depression with anxiety Dietary restriction DKA (diabetic ketoacidoses) Essential hypertension Finger infection Flu vaccine need Former smoker Health care maintenance History of echocardiogram History of edema History of stress test History of UTI Hyperlipidemia Irregular heartbeat 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 MRSA infection 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 without evidence of necrosis Non-rheumatic mitral valve stenosis Nonrheumatic aortic (valve) stenosis Osteoarthritis Osteomyelitis of finger of right hand Osteoporosis Overactive bladder Pancreatitis Paroxysmal atrial fibrillation Paroxysmal atrial fibrillation with RVR Post-menopausal Preoperative evaluation to rule out surgical contraindication Stage 3b chronic kidney disease (CKD) Tachycardia Urinary incontinence, overflow Venous insufficiency Vision problems Walker as ambulation aid Weakness Home Medications acetaminophen 325 mg capsule 650 mg PO PRN PRN Pain 12/02/21 [History Last Taken 07/08/22] amlodipine 10 mg tablet 10 mg PO DAILY BP #90 tabs 09/07/22 [Rx Last Taken Unknown] ascorbic acid (vitamin C) 500 mg tablet (Vitamin C) 500 mg PO DAILY vitamin #90 tabs 09/07/22 [Rx Last Taken Unknown] aspirin 81 mg chewable tablet 81 mg PO BREAKFAST Heart #90 tabs 09/07/22 [Rx Last Taken Unknown] cholecalciferol (vitamin D3) 50 mcg (2,000 unit) capsule 50 mcg PO DAILY vitamin #90 caps 09/07/22 [Rx Last Taken Unknown] ferrous sulfate 325 mg (65 mg iron) tablet 325 mg PO DAILY Supplement #90 tabs 09/07/22 [Rx Last Taken Unknown] glimepiride 4 mg tablet 4 mg PO BID dm 3 months #180 tabs 09/07/22 [Rx Last Taken Unknown] metformin 1,000 mg tablet 1,000 mg PO BID DM #180 tabs 09/07/22 [Rx Last Taken Unknown] multivitamin 1 tab PO DAILY SUPPLEMENT #90 tabs 09/07/22 [Rx Last Taken Unknown] oxybutynin chloride 15 mg tablet,extended release 24 hr 15 mg PO BID bladder #180 tabs 09/07/22 [Rx Last Taken Unknown] sertraline 100 mg tablet (Zoloft) 100 mg PO DAILY anxiety #90 tabs 09/07/22 [Rx Last Taken Unknown] atorvastatin 20 mg tablet (Lipitor) 20 mg PO DAILY Check with primary doctor 09/09/22 [History Last Taken Unknown] cephalexin 500 mg capsule 500 mg PO Q8H Check with primary doctor 09/09/22 [History Last Taken Unknown] diltiazem HCl 240 mg capsule,extended release 24 hr (Cardizem CD) 240 mg PO DAILY heart 09/09/22 [History Last Taken Unknown] metoprolol succinate 100 mg tablet,extended release 24 hr 100 mg PO BID Check with primary doctor 09/09/22 [History Last Taken Unknown] warfarin 3 mg tablet 3 mg PO DAILY Check with primary doctor 09/09/22 [History Last Taken Unknown] warfarin 6 mg tablet 6 mg PO QWEEK Check with primary doctor 09/09/22 [History Last Taken Unknown] Allergy/AdvReac Type Severity Reaction Status Date / Time fosinopril [From Monopril] Allergy Unknown unknown Verified 09/09/22 14:34 pioglitazone AdvReac Other Verified 09/09/22 14:34 Family History Father Diabetes High cholesterol Heart disease Melanoma Hypertension Mother Heart disease Brother AIDS (acquired immune deficiency syndrome) Surgical History History of back surgery History of carpal tunnel release History of hand surgery History of hysterectomy History of left elbow replacement History of surgical amputation of finger of right hand Hx of colonoscopy S/P hysterectomy S/P ORIF (open reduction internal fixation) fracture Status post surgical amputation of finger of right hand Social History household members: none Smoking Status: Former smoker how long ago did patient quit smokin years ago alcohol intake: current alcohol intake frequency: holidays/special occasions only substance use type: does not use what type of physical activity do you participate in: other details: aquasize ROS Constitutional Constitutional: Denies anorexia, change in weight, chills, fatigue, fever(s), malaise, night sweats, weakness or other Eyes Eyes: Denies blurry vision, change in eye color, change in vision, discharge from eye(s), double vision, erythema, eye pain, loss of vision or other ENT HEENT: Denies abnormal hearing, dysphagia, ear pain, epistaxis, headache(s), hearing loss, nasal congestion, nasal discharge, post nasal drip, sinus pressure, sore throat or other Cardiovascular Cardiovascular: Reports dyspnea on exertion and edema; Denies chest pain, claudication, lightheadedness, orthopnea, palpitations, paroxysmal nocturnal dyspnea, rapid heart rate, syncope or other Respiratory/Chest Respiratory/Chest: Reports cough, shortness of breath at rest and shortness of breath with exertion; Denies dyspnea, excessive phlegm production, hemoptysis, productive cough, wheezing or other Gastrointestinal Gastrointestinal: Denies abdominal pain, coffee ground emesis, constipation, diarrhea, dyspepsia, hematemesis, hematochezia, loose stools, melena, nausea, vomiting or other Genitourinary Genitourinary: Reports urinary frequency; Denies burning urination, difficulty urinating, dysuria, hematuria, nocturia, urinary hesitancy, urinary incontinence, urinary urgency or other Musculoskeletal Musculoskeletal: Reports back pain and joint pain; Denies arthralgias, joint stiffness, joint swelling, myalgias, neck pain or other Neurologic Neurologic: Denies abnormal gait, abnormal speech, confusion, disequilibrium, dizziness, focal weakness, headache(s), numbness, paresthesias, seizure-like activity, seizures, syncope, tingling, tremor(s) or other Psychiatric Psychiatric: Denies anxiety, depression, homicidal ideation, suicidal ideation or other Endocrine Endocrinology: Denies change in body appearance, cold intolerance, excessive sweating, heat intolerance, polydipsia, polyuria or other Hematologic/Lymphatic Hematologic/Lymphatic: Denies anemia, easy bleeding, easy bruising, lymphadenopathy or other Allergic/Immunologic Allergic/Immunologic: Denies rhinitis, hives, eczemia, asthma or other Vital Signs Vital Signs Vital Signs: 09/09/22 14:31 09/09/22 14:43 09/09/22 14:49 Temperature 97.7 F L Temperature Source Temporal Pulse Rate 67 Respiratory Rate 20 H Respiratory Effort Short of Breath Respiratory Pattern Blood Pressure 138/88 H Blood Pressure Mean 104 Pulse Ox 85 91 Oxygen Delivery Method Room Air Nasal Cannula Oxygen Flow Rate (L/min) 6 09/09/22 15:00 09/09/22 15:00 09/09/22 15:41 Temperature Temperature Source Pulse Rate 62 Respiratory Rate 26 H 26 H Respiratory Effort Respiratory Pattern Tachypnea Blood Pressure Blood Pressure Mean Pulse Ox 91 91 Oxygen Delivery Method Nasal Cannula Oxygen Flow Rate (L/min) 6 09/09/22 16:32 09/09/22 16:32 Temperature 97.9 F Temperature Source Temporal Pulse Rate 69 Respiratory Rate 23 H Respiratory Effort Respiratory Pattern Blood Pressure 155/77 H 155/77 H Blood Pressure Mean 103 103 Pulse Ox 95 Oxygen Delivery Method Non-Rebreather @ 15L/min Oxygen Flow Rate (L/min) Weight Weight: 82.554 kg Body Mass Index (BMI) 34.4 Physical Exam Const alert, oriented x3, no apparent distress and well nourished Constitutional Narrative: Obese, somewhat disheveled, elderly, white female, sitting in bed on nonrebreather, appears comfortable currently with no signs of respiratory distress, nursing at bedside, patient is nontoxic-appearing at this time General Appearance: cooperative HEENT normocephalic, head/scalp atraumatic and hearing grossly normal bilaterally HEENT Narrative: Mucous membranes are somewhat dry, Mallampati is 2, dentition is poor, no thrush Eyes PERRL, EOMs intact bilaterally and conjunctivae normal Eyes Narrative: No scleral icterus Neck no lymphadenopathy, supple, no JVD and no carotid bruits Neck Narrative: Hirsutism is a noted, trachea midline, no thyroid enlargement Resp normal respiratory effort, no retractions, no use of accessory muscles and No clear to auscultation bilaterally Resp Narrative: Diffuse scattered end expiratory wheeze and crackles Auscultation: crackles and wheezes; Negative for rhonchi Cardio regular rate, regular rhythm, S1 normal heart sound, S2 normal heart sound, no murmurs, no rub, no gallops and no clicks GI normal to inspection, nondistended, normoactive bowel sounds, soft to palpation and non-tender Extremity Extremity Narrative: 1+ bilateral lower extremity pitting edema, no clubbing or cyanosis, patient reports edema is her chronic baseline amount Skin No no rashes or lesions noted, No no wounds, skin turgor normal, no jaundice, no petechiae and no mottling Skin Narrative: Scattered lesions from picking bilateral lower extremities-no signs of infection, cracks on feet under callus formation on bilateral feet worse on left than right, bilateral lower extremity onychomycosis, ecchymotic area about the size of a tennis ball on the left lateral aspect of her upper back Neuro oriented x3, CN's II-XII intact bilaterally, moves all extremities and no focal motor deficits Neuro Narrative: Generalized weakness with no focal deficits Speech: speech normal Psych affect normal Psych Narrative: Very pleasant and appropriate Results Lab / Micro Data Result Diagrams: 09/09/22 14:50 09/09/22 14:50 Labs: Laboratory Results - last 24 hr 09/09/22 14:50: WBC 12.6 H, RBC 4.34, Hgb 11.8 L, Hct 38.3, MCV 88.2, MCH 27.2, MCHC 30.8 L, RDW Std Deviation 50.3 H, RDW Coeff of Zee 15.4 H, Plt Count 275, MPV 10.4, Immature Gran % (Auto) 0.500, Neut % (Auto) 90.4 H, Lymph % (Auto) 5.9 L, [place] % (Auto) 2.2, Eos % (Auto) 0.6, Baso % (Auto) 0.4, Absolute Neuts (auto) 11.4 H, Absolute Lymphs (auto) 0.74 L, Nucleated RBC % 0 09/09/22 14:50: Sodium 136, Potassium 5.0, Chloride 108 H, Carbon Dioxide 24.0, Anion Gap 4 L, BUN 36 H, Creatinine 1.29 H, Estim Creat Clear Calc 30.62, Est GFR (MDRD) Af Amer 52 L, Est GFR (MDRD) Non-Af 43 L, BUN/Creatinine Ratio 27.9 H, Glucose 226 H, Calcium 9.9, Troponin I High Sens 11 09/09/22 14:50: Total Bilirubin 0.40, Direct Bilirubin 0.12, AST 24, ALT 37, Alkaline Phosphatase 83, Total Protein 7.7, Albumin 3.4, Globulin 4.3 H 09/09/22 14:50: Lactic Acid 2.7 H* 09/09/22 14:50: B-Natriuretic Peptide 272.2 H 09/09/22 15:35: PT Cancelled, INR Cancelled 09/09/22 15:45: PT 20.0 H, INR 1.7 09/09/22 16:30: Urine Color Yellow, Urine Clarity Clear, Urine pH 6.0, Ur Specific [place] 1.015, Urine Protein 30 H, Urine Glucose (UA) Normal, Urine Ketones Negative, Urine Occult Blood Negative, Urine Nitrite Negative, Urine Bilirubin Negative, Urine Urobilinogen Normal, Ur Leukocyte Esterase 25 H, Urine RBC 0 SEEN, Urine WBC 0 SEEN, Ur Squamous Epith Cells 0-5 SEEN, Urine Bacteria 0 SEEN, Urine Mucus 0 SEEN Micro: Microbiology 09/09/22 14:55 Nasal Secretion SARS-CoV-2 Antigen (Rapid) - Final Radiology Impression Chest X-Ray 09/09/22 15:05 IMPRESSION: Bilateral multiple areas of opacity concerning for multifocal infiltrates/pneumonia in the appropriate clinical setting. Other considerations would include scattered alveolar edema in the cardiogenic setting. Recommend follow-up imaging in 4-6 weeks after appropriate treatment to document resolution and exclude underlying pulmonary nodularity. Electronically Signed: Alexis Christian DO at 15:21 EDT , Assessment & Plan Assessment/Plan (1) Acute UTI: (2) Lactic acidosis: (3) Sepsis: (4) Acute and chronic respiratory failure with hypoxia: (5) Leukocytosis: (6) Pneumonia: (7) Subtherapeutic international normalized ratio (INR): (8) Elevated brain natriuretic peptide (BNP) level: PLAN: Plan Sepsis secondary to UTI/suspected pneumonia -Urine culture from 07/09/2022 is showing gram-negative romeo lactose asset availability leader with identification pending -Repeat urine culture done today, blood culture pending -Check sputum culture if patient able to produce -Pneumonia could be viral or atypical with presentation -Check strep pneumo and Legionella antigens -Check respiratory viral panel -COVID PCR is pending -COVID and flu rapid are negative -Broad-spectrum antibiotics with vancomycin/Zosyn/azithromycin and narrow as able -Patient not currently needing fluid boluses Acute hypoxic respiratory failure secondary to pneumonia/possible HFpEF -Echocardiogram on 07/10/2022 shows an EF of 60% with stage II diastolic dysfunction and moderate mitral valve calcification -Continue home diuretics -BNP is elevated but not nearly as elevated that has been previously so I am unconvinced that this is predominantly due to heart failure at this time -Check strep pneumo and Legionella antigens -Check respiratory viral panel -Antibiotics as above -Sputum culture as above -Currently requiring nonrebreather at 15 L--> transition to Airvo and wean as able -Patient is not oxygen dependent at baseline -CTA of the chest is pending as patient has been subtherapeutic with her INR for several days and chest x-ray was abnormal -Awaiting this to be performed and results Lactic acidosis -Secondary to the above may be combined sepsis and respiratory failure with hypoxia -Cycle as per sepsis protocol Leukocytosis with left shift -Treatment as above -Await culture results Elevated BNP -Much less than previous -Unconvinced that this is currently a heart failure exacerbation--> will await more data and continue home diuretics for now -No additional fluid needed for sepsis at this time PAF with subtherapeutic INR -Continue home Coumadin dosing -Check INR daily -Adjust Coumadin as needed -Continue home oral-continue home diltiazem Hypertension/hyperlipidemia -Continue home amlodipine -Continue home statin -Continue home diltiazem -continue home metoprolol Urinary incontinence -Continue home oxybutynin DM-2 -Hold home oral agents -Sliding scale -Cardiac/carb controlled diet -Accu-Cheks -May need more coverage with steroid use Recent osteomyelitis of the third digit on her right hand -Antibiotics have been completed on 08/23/2022 -PICC line removed History of stroke -Continue home aspirin -No apparent residual deficits CKD stage IIIb -Baseline serum creatinine appears to run between 1.1 and 1.4 -Current serum creatinine 1.29 -Avoid nephrotoxins as able -Monitor serum creatinine Depression -Continue home sertraline Chronic mild normocytic anemia -Patient is on iron for this we will continue -Hemoglobin stable DVT prophylaxis -We will start Lovenox as INR is subtherapeutic -Once INR greater than 2 discontinue Lovenox CODE STATUS -Full code Sepsis Attestation Sepsis Alert: Yes Sepsis Attestation: Agree w/Sepsis Date exam was performed: 09/09/22 Time exam was performed: 17:08 Possible Source of Sepsis: Pulmonary and Genitourinary Sepsis Organ Dysfunction Criteria Present: Acute Respiratory Failure (New need for BiPAP/CPAP or MV) and Lactic Acid > 2 mmol/L Fluid Resuscitation Fluid resuscitation indicated?: Yes Fluid Resuscitation ordered: Fluids not indicated Charges/Coding Visit Charges Inpatient E&M: 37127 Init Hosp L3
--- NOTE | 2022-09-09 18:29 | PCM.RX.CS ---
Consult Pharmacy has been consulted to manage selected antiobiotic: Vancomycin Type of Consult: New start Prior Doses of Antibiotics Received/Current Regimen: Medications Vancomycin HCl 2,000 mg/ (Sodium Chloride) 540 mls @ 250 mls/hr IV X1 ONE Stop: 09/09/22 18:39 Last Admin: 09/09/22 17:15 Dose: 250 mls/hr Labs: Sodium 136 mmol/L (136-145) 09/09/22 14:50 Potassium 5.0 mmol/L (3.5-5.1) 09/09/22 14:50 Chloride 108 mmol/L (98-107) H 09/09/22 14:50 Carbon Dioxide 24.0 mmol/L (21.0-32.0) 09/09/22 14:50 Anion Gap 4 (5-15) L 09/09/22 14:50 BUN 36 mg/dL (7-18) H 09/09/22 14:50 Creatinine 1.29 mg/dL (0.55-1.02) H 09/09/22 14:50 Est GFR (MDRD) Af Amer 52 mL/min (>60) L 09/09/22 14:50 Est GFR (MDRD) Non-Af 43 mL/min (>60) L 09/09/22 14:50 BUN/Creatinine Ratio 27.9 RATIO (10-20) H 09/09/22 14:50 Glucose 226 mg/dL (74-106) H 09/09/22 14:50 Microbiology: Microbiology 09/09/22 14:55 Nasal Secretion SARS-CoV-2 Antigen (Rapid) - Final Weight used for dosin kg Estimated Creatinine Clearance: 31 Goal Trough: 15-20 mcg/mL Pharmacy Plan for Drug Dosinmg given x1, 1250mg IV q12h with trough prior to 3rd dose per policy. Pharmacy Service will continue to monitor and adjust dosing as required. Follow-Up Labs: Trough Vancomycin - 09/11 @ 1630
[2022-09-09 19:28] LABS: Reflex Lactate? Y
[2022-09-09] MEDS: 0.9% Saline Lock 10 ML Syringe IV ×2 (19:52→21:07)
[2022-09-09] MEDS: Furosemide 40 MG/4 ML Vial IV (19:52)
[2022-09-09 20:31] LABS: Lactic Acid 1.2 mmol/L (0.4-1.9)
[2022-09-09] MEDS: guaiFENesin 1,200 MG Tablet 1200 MG PO (21:06)
[2022-09-09] MEDS: Atorvastatin Calcium 20 MG Tablet PO (21:06)
[2022-09-09] MEDS: Metoprolol(XL)Succ 100 MG Tablet PO (21:06)
[2022-09-09 22:00] LABS: Bedside Glucose 264 mg/dL (74-106)
[2022-09-09] MEDS: Insulin Lispro 100 UNIT/ML INSULN.PEN SC (22:47)
[2022-09-10] VITALS (19 sets, daily range): BP systolic 107–154; BP diastolic 56–82; PULSE 63–82; RESP 18–26; TEMP 36.2–36.8; O2SAT 90–97
[2022-09-10] MEDS: Ipratropium/Albuterol Sulfate 3 ML AMPUL.NEB INHALATION ×5 (03:15→19:22)
[2022-09-10 05:32] LABS: Absolute Lymphocyte Count 0.32 X10^3/uL (0.83-4.51); Absolute Neutrophil Count 8.1 X10^3/uL (2.0-7.7); Basophil# 0.01 X10^3/uL; Basophil% 0.1 % (0-1); Hematocrit 32.6 % (37-47); Hemoglobin 10.3 g/dL (12.0-15.0); Lymphocyte # 0.32 X10^3/ul (0.83-4.51); Lymphocyte % 3.8 % (19-41); Mean Corp Hgb Conc 31.6 g/dL (32-36); Mean Corpuscular Hgb 27.5 pg (27.0-32.0); Mean Corpuscular Volume 86.9 fL (81-99); Mean Platelet Vol. 10.4 fl (6.2-12.0); Monocyte# 0.06 X10^3/uL; Monocyte% 0.7 % (0-10); NRBC Flagged by Analyzer 0 % (0-5); Neutrophil % 94.9 % (47-70); POSITIVE DIFFERENTIAL YES; Platelet Count 237 K/mm3 (150-450); RBC Distribution Width CV 15.5 % (11.6-14.6); RBC Distribution Width SD 49.1 fl (35.1-43.9); Red Blood Count 3.75 M/mm3 (4.2-5.4); White Blood Count 8.5 K/mm3 (4.4-11.0)
[2022-09-10] MEDS: 0.9% Saline Lock 10 ML Syringe IV ×2 (05:44→21:08)
[2022-09-10 05:53] LABS: Differential Indicated SCAN CRITERIA MET
[2022-09-10 06:02] LABS: ALB/GLOB Ratio 0.8 RATIO (0.9-2.4); AST(SGOT) 15 U/L (15-37); Alanine Aminotransfer ALT/SGPT 31 U/L (13-56); Albumin, Serum 2.9 g/dL (3.2-5.0); Alkaline Phosphatase 63 U/L (45-117); Anion Gap 6 (5-15); BUN 38 mg/dL (7-18); BUN/Creat Ratio 24.8 RATIO (10-20); Calcium,Total 9.2 mg/dL (8.5-10.1); Chloride 107 mmol/L (98-107); Creatinine, Serum 1.53 mg/dL (0.55-1.02); EST Glomerular Filtration Rate 36 mL/min (>60); Est Glom Filt Rate - Afr Amer 43 mL/min (>60); Estimated Creatinine Clearance 25.82 ml/min; Globulin 3.7 g/dL (2.2-4.2); Glucose 325 mg/dL (74-106); Magnesium 2.2 mg/dL (1.6-2.6); Phosphorus 3.4 mg/dL (2.5-4.9); Potassium 4.1 mmol/L (3.5-5.1); Protein, Total 6.6 g/dL (6.4-8.2); Sodium Level 136 mmol/L (136-145)
[2022-09-10 06:06] LABS: Differential Comment SCANNED
[2022-09-10] MEDS: Insulin Lispro 100 UNIT/ML INSULN.PEN SC ×4 (06:39→21:07)
[2022-09-10 07:00] LABS: Bedside Glucose 298 mg/dL (74-106)
[2022-09-10] MEDS: amLODIPine 10 MG Tablet PO (09:31)
[2022-09-10] MEDS: Furosemide 40 MG/4 ML Vial IV (09:31)
[2022-09-10] MEDS: Metoprolol(XL)Succ 100 MG Tablet PO ×2 (09:31→21:07)
[2022-09-10] MEDS: guaiFENesin 1,200 MG Tablet 1200 MG PO ×2 (09:31→21:07)
[2022-09-10] MEDS: dilTIAZem CD 240 MG Capsule PO (09:32)
[2022-09-10] MEDS: Tolterodine Tartrate 4 MG CAP.SA PO (09:32)
[2022-09-10] MEDS: Enoxaparin 40 MG/0.4 ML Syringe SC (09:32)
[2022-09-10] MEDS: Sertraline 100 MG Tablet PO (09:32)
[2022-09-10] MEDS: Ascorbic Acid 500 MG Tablet PO (09:32)
[2022-09-10] MEDS: Ferrous Sulfate 325 MG Tablet PO (11:04)
[2022-09-10 11:21] LABS: Bedside Glucose 338 mg/dL (74-106)
--- NOTE | 2022-09-10 12:20 | CASEMGMT ---
CORNELIO ALMANZAR Face to Face with patient for initial transition planning/care coordination assessment. RN YOHAN introduced self and role at [facility]. Patient lying in bed, alert and oriented. Patient willing to participate in assessment and is able to answer all questions appropriately. Care providers, pharmacy, and demographics verified. Patient wishes to discharge home with resumption of HHC with [facility]. Patient states she has no further needs or concerns at this time. CM to follow for discharge planning needs that may arise. PCP: Tez Specialists: TAMEKA, cardiology; New, plastics Preferred Pharmacy: [facility] Insurance: [employer] Prescription Benefit: yes Living Will/HPOA: sisters Kim and Scobel HPOA LNOK: sisterkareem Living Arrangements: Patient lives alone in 5 story split level home with bed and bath on main level, 1 step to enter the home. Patient states she is independent at home. Transportation: Friend, [facility] van DME/HHC: Patient has shower chair, hospital bed, lift chair, grab bars, rollator, medical alert, cpap, pulse ox, glucometer with supplies. Patient has been to [facility] previously. Patient is currently active with [facility]. Will monitor for home oxygen at discharge, patient would like [employer] for DME. Disposition Plan: Patient to discharge home with resumption of HHC, family support, and follow-up plans in place. Becca IGLESIAS, RN, CM
[2022-09-10 16:35] LABS: Bedside Glucose 419 mg/dL (74-106)
--- NOTE | 2022-09-10 18:40 | PCM.PN.HOSP ---
Reason for Visit Reason for Visit: Diagnoses Sepsis, unspecified organism (09/09/22) Elevated white blood cell count, unspecified (09/09/22) Acidosis, unspecified (09/09/22) Pneumonia, unspecified organism (09/09/22) Acute and chronic respiratory failure with hypoxia (09/09/22) Urinary tract infection, site not specified (09/09/22) Abnormal coagulation profile (09/09/22) Other specified abnormal findings of blood chemistry (09/09/22) Subjective Subjective Patient was seen and examined today, she remains on supplemental oxygen at 7 L, I have elected to stop the patient's vancomycin-I do not think she needs this medication. Patient's white blood cell count today was 8.5 Objective Data Objective Data Vital Signs: Vital Signs Temp Pulse Resp BP Pulse Ox O2 Del Method O2 Flow Rate 97.9 F 74 25 H 141/70 H 92 High Flow 7 09/10/22 17:00 09/10/22 17:00 09/10/22 17:00 09/10/22 17:00 09/10/22 17:00 09/10/22 17:00 09/10/22 17:00 Oxygen Flow Rate (L/min) 7 Oxygen Delivery Method High Flow Weight: 86.772 kg Body Mass Index (BMI) 36.1 Intake & Output: Intake and Output for Last 24 Hours 09/08/22 09/09/22 09/10/22 23:59 23:59 23:59 Intake Total 845 / 845 905 / 905 Output Total 700 / 700 800 / 800 Balance 145 / 145 105 / 105 Lab / Micro Data Result Diagrams: 09/10/22 05:20 09/10/22 05:20 Labs: Laboratory Results - last 24 hr 09/09/22 17:13: COVID-19 (ADE) Not Detected 09/09/22 20:00: Lactic Acid 1.2 09/09/22 21:04: POC Glucose 264 H 09/10/22 05:20: WBC 8.5, RBC 3.75 L, Hgb 10.3 L, Hct 32.6 L, MCV 86.9, MCH 27.5, MCHC 31.6 L, RDW Std Deviation 49.1 H, RDW Coeff of Zee 15.5 H, Plt Count 237, MPV 10.4, Immature Gran % (Auto) 0.500, Neut % (Auto) 94.9 H, Lymph % (Auto) 3.8 L, [place] % (Auto) 0.7, Eos % (Auto) 0.0, Baso % (Auto) 0.1, Absolute Neuts (auto) 8.1 H, Absolute Lymphs (auto) 0.32 L, Nucleated RBC % 0, Differential Comment SCANNED 09/10/22 05:20: Sodium 136, Potassium 4.1, Chloride 107, Carbon Dioxide 23.0, Anion Gap 6, BUN 38 H, Creatinine 1.53 H, Estim Creat Clear Calc 25.82, Est GFR (MDRD) Af Amer 43 L, Est GFR (MDRD) Non-Af 36 L, BUN/Creatinine Ratio 24.8 H, Glucose 325 H, Calcium 9.2, Phosphorus 3.4, Magnesium 2.2, Total Bilirubin 0.40, AST 15, ALT 31, Alkaline Phosphatase 63, Total Protein 6.6, Albumin 2.9 L, Globulin 3.7, Albumin/Globulin Ratio 0.8 L 09/10/22 06:38: POC Glucose 298 H 09/10/22 11:00: POC Glucose 338 H 09/10/22 16:11: POC Glucose 419 H Micro: Microbiology 09/10/22 11:30 Mucosa - Nasopharyngeal Respiratory Panel (PCR) - Final 09/09/22 16:30 Urine, Clean Catch Urine Culture - Final Mixed Gram Pos & Gram Neg Org 09/09/22 17:13 Mucosa - Nose Respiratory Panel (PCR) - Final 09/09/22 16:30 Urine, Clean Catch Legionella Antigen - Final 09/09/22 16:30 Urine, Clean Catch Streptococcus pneumoniae Antigen (M - Final 09/09/22 14:55 Nasal Secretion SARS-CoV-2 Antigen (Rapid) - Final Physical Exam Const alert, oriented x3, no apparent distress and healthy appearing General Appearance: cooperative, well kempt and well developed Orientation / Consciousness: awake, oriented to person, oriented to place and oriented to time HEENT normocephalic, head/scalp atraumatic and moist oral mucous membranes Eyes PERRL, EOMs intact bilaterally and conjunctivae normal Neck supple, no JVD, thyroid normal and no carotid bruits General: trachea midline Resp normal respiratory effort, no retractions and no use of accessory muscles Resp Narrative: Decreased breath sounds are noted at the bases bilaterally Auscultation: Negative for rales, rhonchi or wheezes Cardio regular rate, regular rhythm, S1 normal heart sound, S2 normal heart sound, no murmurs, no rub and no gallops GI normal to inspection, nondistended, normoactive bowel sounds, soft to palpation, non-tender and non-distended Extremity no clubbing, cyanosis or edema Skin no rashes or lesions noted General Skin Exam: no breakdown Neuro oriented x3, CN's II-XII intact bilaterally, moves all extremities, no focal motor deficits and no sensory deficits noted Sensorium / Orientation: awake, alert, oriented to person, oriented to place and oriented to time Speech: speech normal Psych affect normal Assessment & Plan Assessment/Plan (1) Elevated brain natriuretic peptide (BNP) level: PLAN: Plan 1. Acute hypoxic respiratory failure secondary to pneumonia and acute congestive heart failure with preserved ejection fraction-patient will continue on IV diuretics and IV antibiotics, patient's respiratory panel was negative for pathogens, her Legionella and strep antigens were also negative. #2 paroxysmal atrial fibrillation-patient is on rate limiting medications and anticoagulation at this time #3 hypercoagulable state secondary to #2-patient is on warfarin, INR will be monitored as necessary #4 type 2 diabetes-fingerstick blood sugars will be monitored, sliding scale insulin will be given as needed #5 chronic kidney disease stage IIIb-monitor labs as necessary, complicates care, medical course, recovery, and prognosis Clinical time spent by myself addressing the patient's medical issues, reviewing all of her data, and collaborating with the patient's care team: 37 minutes Charges/Coding Visit Charges Inpatient E&M: 45418 Subs Hosp L2
[2022-09-10] MEDS: Atorvastatin Calcium 20 MG Tablet PO (21:07)
[2022-09-10] MEDS: Furosemide 20 MG/2 ML VIAL IV (21:08)
[2022-09-10 22:00] LABS: Bedside Glucose 250 mg/dL (74-106)
[2022-09-11] VITALS (17 sets, daily range): BP systolic 108–151; BP diastolic 56–84; PULSE 72–130; RESP 18–24; TEMP 36.2–36.6; O2SAT 93–98
[2022-09-11] MEDS: Ipratropium/Albuterol Sulfate 3 ML AMPUL.NEB INHALATION ×4 (00:25→19:32)
[2022-09-11] MEDS: 0.9% Saline Lock 10 ML Syringe IV ×4 (05:25→23:46)
[2022-09-11] MEDS: Furosemide 20 MG/2 ML VIAL IV ×3 (05:25→20:24)
[2022-09-11] MEDS: Insulin Lispro 100 UNIT/ML INSULN.PEN SC ×4 (06:13→20:28)
[2022-09-11 06:51] LABS: Bedside Glucose 169 mg/dL (74-106)
[2022-09-11 08:40] LABS: Anion Gap 5 (5-15); BUN 48 mg/dL (7-18); BUN/Creat Ratio 30.8 RATIO (10-20); Calcium,Total 9.7 mg/dL (8.5-10.1); Chloride 106 mmol/L (98-107); Creatinine, Serum 1.56 mg/dL (0.55-1.02); EST Glomerular Filtration Rate 35 mL/min (>60); Est Glom Filt Rate - Afr Amer 42 mL/min (>60); Estimated Creatinine Clearance 25.32 ml/min; Glucose 147 mg/dL (74-106); Potassium 3.3 mmol/L (3.5-5.1); Sodium Level 137 mmol/L (136-145)
[2022-09-11 09:12] LABS: Prothrombin Time (Protime)PT. 31.5 SECONDS (11.7-14.9)
[2022-09-11] MEDS: dilTIAZem CD 240 MG Capsule PO (09:30)
[2022-09-11] MEDS: Potassium Chloride Oral Tablet 20 MEQ PO ×2 (09:30→16:57)
[2022-09-11] MEDS: amLODIPine 10 MG Tablet PO (09:30)
[2022-09-11] MEDS: Tolterodine Tartrate 4 MG CAP.SA PO (09:30)
[2022-09-11] MEDS: Ascorbic Acid 500 MG Tablet PO (09:31)
[2022-09-11] MEDS: Enoxaparin 40 MG/0.4 ML Syringe SC (09:31)
[2022-09-11] MEDS: guaiFENesin 1,200 MG Tablet 1200 MG PO ×2 (09:31→20:24)
[2022-09-11] MEDS: Ferrous Sulfate 325 MG Tablet PO (09:31)
[2022-09-11] MEDS: Sertraline 100 MG Tablet PO (09:31)
[2022-09-11] MEDS: Metoprolol(XL)Succ 100 MG Tablet PO ×2 (09:31→20:24)
--- NOTE | 2022-09-11 10:04 | EKG12_ITS ---
Test Reason : AFIB Blood Pressure : / mmHG Vent. Rate : 114 BPM Atrial Rate : 000 BPM P-R Int : 000 ms QRS Dur : 084 ms QT Int : 334 ms P-R-T Axes : 000 042 -38 degrees QTc Int : 460 ms Atrial fibrillation with rapid ventricular response ST & T wave abnormality, consider inferior ischemia Abnormal ECG When compared with ECG of 09-SEP-2022 14:56, MANUAL COMPARISON REQUIRED, DATA IS UNCONFIRMED Confirmed by SHERIF CALLOWAY, MILDRED ([id number]), publication editor AMALIA MEJIA ([id number]) on 09/14/2022 11:54:52 AM Referred By: Sulma Reagan Confirmed By:MILDRED GORMAN MD
--- NOTE | 2022-09-11 10:51 | PCM.PN.HOSP ---
Reason for Visit Reason for Visit: Diagnoses Sepsis, unspecified organism (09/09/22) Elevated white blood cell count, unspecified (09/09/22) Acidosis, unspecified (09/09/22) Pneumonia, unspecified organism (09/09/22) Acute and chronic respiratory failure with hypoxia (09/09/22) Urinary tract infection, site not specified (09/09/22) Abnormal coagulation profile (09/09/22) Other specified abnormal findings of blood chemistry (09/09/22) Subjective Subjective Patient was seen and examined today, she is still requiring supplemental oxygen at this time, she appears comfortable and is not complaining of any fever, chills, or shortness of breath. Objective Data Objective Data Vital Signs: Vital Signs Temp Pulse Resp BP Pulse Ox O2 Del Method O2 Flow Rate 97.6 F L 89 18 148/84 H 93 Nasal Cannula 4 09/11/22 09:25 09/11/22 09:31 09/11/22 09:25 09/11/22 09:31 09/11/22 09:30 09/11/22 09:25 09/11/22 09:30 Oxygen Flow Rate (L/min) 4 Oxygen Delivery Method Nasal Cannula Weight: 86.772 kg Body Mass Index (BMI) 36.1 Intake & Output: Intake and Output for Last 24 Hours 09/09/22 09/10/22 09/11/22 23:59 23:59 23:59 Intake Total 845 / 845 1055 / 1055 355 / 355 Output Total 700 / 700 1100 / 1100 250 / 250 Balance 145 / 145 -45 / -45 105 / 105 Lab / Micro Data Result Diagrams: 09/10/22 05:20 09/11/22 07:40 Labs: Laboratory Results - last 24 hr 09/10/22 11:00: POC Glucose 338 H 09/10/22 16:11: POC Glucose 419 H 09/10/22 21:02: POC Glucose 250 H 09/11/22 06:11: POC Glucose 169 H 09/11/22 07:40: PT 31.5 H, INR 3.0 09/11/22 07:40: Sodium 137, Potassium 3.3 L, Chloride 106, Carbon Dioxide 26.0, Anion Gap 5, BUN 48 H, Creatinine 1.56 H, Estim Creat Clear Calc 25.32, Est GFR (MDRD) Af Amer 42 L, Est GFR (MDRD) Non-Af 35 L, BUN/Creatinine Ratio 30.8 H, Glucose 147 H, Calcium 9.7 Micro: Microbiology 09/09/22 15:30 Blood Culture (Wb) - Left Forearm Blood Culture - Preliminary No growth in 48 hours. 09/10/22 11:30 Mucosa - Nasopharyngeal Respiratory Panel (PCR) - Final 09/09/22 16:30 Urine, Clean Catch Urine Culture - Final Mixed Gram Pos & Gram Neg Org 09/09/22 17:13 Mucosa - Nose Respiratory Panel (PCR) - Final 09/09/22 16:30 Urine, Clean Catch Legionella Antigen - Final 09/09/22 16:30 Urine, Clean Catch Streptococcus pneumoniae Antigen (M - Final 09/09/22 14:55 Nasal Secretion SARS-CoV-2 Antigen (Rapid) - Final Physical Exam Narrative alert, oriented x3, no apparent distress and healthy appearing General Appearance: cooperative, well kempt and well developed Orientation / Consciousness: awake, oriented to person, oriented to place and oriented to time HEENT normocephalic, head/scalp atraumatic and moist oral mucous membranes Eyes PERRL, EOMs intact bilaterally and conjunctivae normal Neck supple, no JVD, thyroid normal and no carotid bruits General: trachea midline Resp normal respiratory effort, no retractions and no use of accessory muscles Resp Narrative: Decreased breath sounds are noted at the bases bilaterally Auscultation: Negative for rales, rhonchi or wheezes Cardio regular rate, regular rhythm, S1 normal heart sound, S2 normal heart sound, no murmurs, no rub and no gallops GI normal to inspection, nondistended, normoactive bowel sounds, soft to palpation, non-tender and non-distended Extremity no clubbing, cyanosis or edema Skin no rashes or lesions noted General Skin Exam: no breakdown Neuro oriented x3, CN's II-XII intact bilaterally, moves all extremities, no focal motor deficits and no sensory deficits noted Sensorium / Orientation: awake, alert, oriented to person, oriented to place and oriented to time Speech: speech normal Psych affect normal Assessment & Plan Assessment/Plan (1) Acute and chronic respiratory failure with hypoxia: (2) Elevated brain natriuretic peptide (BNP) level: PLAN: Plan 1. Acute hypoxic respiratory failure secondary to pneumonia and acute congestive heart failure with preserved ejection fraction-patient will continue on IV diuretics and IV antibiotics, patient's respiratory panel was negative for pathogens, her Legionella and strep antigens were also negative. I have elected to keep the patient on Zithromax and Zosyn for now #2 paroxysmal atrial fibrillation-patient is on rate limiting medications and anticoagulation at this time #3 hypercoagulable state secondary to #2-patient is on warfarin, INR will be monitored as necessary #4 type 2 diabetes-fingerstick blood sugars will be monitored, sliding scale insulin will be given as needed #5 chronic kidney disease stage IIIb-monitor labs as necessary, complicates care, medical course, recovery, and prognosis #6 hypokalemia-patient's potassium was 3.3 today, I will give additional oral potassium Clinical time spent by myself addressing the patient's medical issues, reviewing all of her data, and collaborating with the patient's care team: 36 minutes Charges/Coding Visit Charges Inpatient E&M: 20706 Subs Hosp L2
[2022-09-11 11:55] LABS: Bedside Glucose 386 mg/dL (74-106)
[2022-09-11] MEDS: Potassium Chloride Oral Tablet 20 MEQ 40 MEQ PO (13:40)
[2022-09-11] MEDS: Albuterol 2.5 MG/3 ML VIAL.NEB. INHALATION (15:33)
[2022-09-11 17:21] LABS: Bedside Glucose 263 mg/dL (74-106)
[2022-09-11] MEDS: Atorvastatin Calcium 20 MG Tablet PO (20:24)
--- NOTE | 2022-09-11 20:24 | NURSING ---
Pt HR elevated, meds given early.
[2022-09-11 20:56] LABS: Bedside Glucose 274 mg/dL (74-106)
[2022-09-11] MEDS: dilTIAZem 25 MG/5 ML Vial 10 MG IV BOLUS (23:45)
[2022-09-12] VITALS (15 sets, daily range): BP systolic 102–131; BP diastolic 51–92; PULSE 94–127; RESP 18–25; TEMP 36.2–36.6; O2SAT 93–97
[2022-09-12] MEDS: Furosemide 20 MG/2 ML VIAL IV ×3 (05:06→21:24)
[2022-09-12] MEDS: 0.9% Saline Lock 10 ML Syringe IV ×2 (05:06→14:31)
[2022-09-12 06:27] LABS: Anion Gap 8 (5-15); BUN 54 mg/dL (7-18); BUN/Creat Ratio 31.8 RATIO (10-20); Calcium,Total 9.7 mg/dL (8.5-10.1); Chloride 105 mmol/L (98-107); EST Glomerular Filtration Rate 32 mL/min (>60); Est Glom Filt Rate - Afr Amer 38 mL/min (>60); Estimated Creatinine Clearance 23.24 ml/min; Glucose 144 mg/dL (74-106); Potassium 3.9 mmol/L (3.5-5.1); Sodium Level 139 mmol/L (136-145)
[2022-09-12 06:55] LABS: Bedside Glucose 142 mg/dL (74-106)
[2022-09-12] MEDS: Ipratropium/Albuterol Sulfate 3 ML AMPUL.NEB INHALATION ×3 (07:33→20:07)
[2022-09-12] MEDS: Ascorbic Acid 500 MG Tablet PO (08:51)
[2022-09-12] MEDS: Potassium Chloride Oral Tablet 20 MEQ PO ×2 (08:52→16:34)
[2022-09-12] MEDS: dilTIAZem CD 240 MG Capsule PO (08:52)
[2022-09-12] MEDS: Tolterodine Tartrate 4 MG CAP.SA PO (08:53)
[2022-09-12] MEDS: Enoxaparin 40 MG/0.4 ML Syringe SC (08:54)
[2022-09-12] MEDS: Sertraline 100 MG Tablet PO (08:56)
[2022-09-12] MEDS: amLODIPine 10 MG Tablet PO (08:56)
[2022-09-12] MEDS: Metoprolol(XL)Succ 100 MG Tablet PO ×2 (08:56→21:24)
[2022-09-12] MEDS: guaiFENesin 1,200 MG Tablet 1200 MG PO ×2 (08:57→21:24)
[2022-09-12] MEDS: Ferrous Sulfate 325 MG Tablet PO (11:41)
[2022-09-12] MEDS: Insulin Lispro 100 UNIT/ML INSULN.PEN SC ×3 (11:41→21:23)
[2022-09-12 12:26] LABS: Bedside Glucose 398 mg/dL (74-106)
--- NOTE | 2022-09-12 13:40 | PN.HOSP_ITS ---
Reason for Visit Reason for Visit: Diagnoses Sepsis, unspecified organism (09/09/22) Elevated white blood cell count, unspecified (09/09/22) Acidosis, unspecified (09/09/22) Pneumonia, unspecified organism (09/09/22) Acute and chronic respiratory failure with hypoxia (09/09/22) Urinary tract infection, site not specified (09/09/22) Abnormal coagulation profile (09/09/22) Other specified abnormal findings of blood chemistry (09/09/22) Subjective Subjective Was seen and examined today, she remains afebrile, blood cultures are negative so far. I have made the decision to change her to oral antibiotics at this time. Patient is still getting IV diuresis, she still requires 3 L of oxygen via nasal cannula at this time. Objective Data Objective Data Vital Signs: Vital Signs Temp Pulse Resp BP Pulse Ox O2 Del Method O2 Flow Rate 97.8 F 120 H 25 H 131/92 H 97 Nasal Cannula 3 09/12/22 10:00 09/12/22 11:35 09/12/22 11:35 09/12/22 10:00 09/12/22 10:00 09/12/22 10:00 09/12/22 10:00 Oxygen Flow Rate (L/min) 3 Oxygen Delivery Method Nasal Cannula Weight: 86.772 kg Body Mass Index (BMI) 36.1 Intake & Output: Intake and Output for Last 24 Hours 09/10/22 09/11/22 09/12/22 23:59 23:59 23:59 Intake Total 1055 / 1055 1005 / 1485 530 / 530 Output Total 1100 / 1100 1850 / 3050 1700 / 1700 Balance -45 / -45 -845 / -1565 -1170 / -1170 Lab / Micro Data Result Diagrams: 09/10/22 05:20 09/12/22 05:36 Labs: Laboratory Results - last 24 hr 09/11/22 16:55: POC Glucose 263 H 09/11/22 20:27: POC Glucose 274 H 09/12/22 05:36: Sodium 139, Potassium 3.9, Chloride 105, Carbon Dioxide 26.0, Anion Gap 8, BUN 54 H, Creatinine 1.70 H, Estim Creat Clear Calc 23.24, Est GFR (MDRD) Af Amer 38 L, Est GFR (MDRD) Non-Af 32 L, BUN/Creatinine Ratio 31.8 H, Glucose 144 H, Calcium 9.7 09/12/22 06:23: POC Glucose 142 H 09/12/22 11:39: POC Glucose 398 H Micro: Microbiology 09/09/22 20:00 Blood Culture (Wb) - Right Hand Blood Culture - Preliminary No growth in 48 hours. 09/09/22 15:30 Blood Culture (Wb) - Left Forearm Blood Culture - Preliminary No growth in 48 hours. 09/10/22 11:30 Mucosa - Nasopharyngeal Respiratory Panel (PCR) - Final 09/09/22 16:30 Urine, Clean Catch Urine Culture - Final Mixed Gram Pos & Gram Neg Org 09/09/22 17:13 Mucosa - Nose Respiratory Panel (PCR) - Final 09/09/22 16:30 Urine, Clean Catch Legionella Antigen - Final 09/09/22 16:30 Urine, Clean Catch Streptococcus pneumoniae Antigen (M - Final 09/09/22 14:55 Nasal Secretion SARS-CoV-2 Antigen (Rapid) - Final Physical Exam Narrative alert, oriented x3, no apparent distress and healthy appearing General Appearance: cooperative, well kempt and well developed Orientation / Consciousness: awake, oriented to person, oriented to place and oriented to time HEENT normocephalic, head/scalp atraumatic and moist oral mucous membranes Eyes PERRL, EOMs intact bilaterally and conjunctivae normal Neck supple, no JVD, thyroid normal and no carotid bruits General: trachea midline Resp normal respiratory effort, no retractions and no use of accessory muscles Resp Narrative: Decreased breath sounds are noted at the bases bilaterally Auscultation: Negative for rales, rhonchi or wheezes Cardio regular rate, regular rhythm, S1 normal heart sound, S2 normal heart sound, no murmurs, no rub and no gallops GI normal to inspection, nondistended, normoactive bowel sounds, soft to palpation, non-tender and non-distended Extremity no clubbing, cyanosis or edema Skin no rashes or lesions noted General Skin Exam: no breakdown Neuro oriented x3, CN's II-XII intact bilaterally, moves all extremities, no focal motor deficits and no sensory deficits noted Sensorium / Orientation: awake, alert, oriented to person, oriented to place and oriented to time Speech: speech normal Psych affect normal Assessment & Plan Assessment/Plan (1) Elevated brain natriuretic peptide (BNP) level: (2) Acute and chronic respiratory failure with hypoxia: PLAN: Plan 1. Acute hypoxic respiratory failure secondary to pneumonia and acute congestive heart failure with preserved ejection fraction-patient will remain on IV Lasix, I will change her IV antibiotics to oral antibiotics, she will be reevaluated in the morning, she may have to be DC'd home on home oxygen. Patient does not want to go to a shelter facility #2 paroxysmal atrial fibrillation-patient is on rate limiting medications and anticoagulation at this time #3 hypercoagulable state secondary to #2-patient is on warfarin, INR will be monitored as necessary #4 type 2 diabetes-fingerstick blood sugars will be monitored, sliding scale insulin will be given as needed #5 chronic kidney disease stage IIIb-monitor labs as necessary, complicates care, medical course, recovery, and prognosis #6 hypokalemia-corrected at this time Clinical time spent by myself addressing the patient's medical issues, reviewing all of her data, and collaborating with the patient's care team: 37 minutes Charges/Coding Visit Charges Inpatient E&M: 27618 Subs Hosp L2
[2022-09-12] MEDS: levoFLOXacin 250 MG Tablet PO (14:33)
[2022-09-12] MEDS: Albuterol 2.5 MG/3 ML VIAL.NEB. INHALATION (15:07)
[2022-09-12 16:31] LABS: Bedside Glucose 155 mg/dL (74-106)
[2022-09-12 21:21] LABS: Bedside Glucose 261 mg/dL (74-106)
[2022-09-12] MEDS: Atorvastatin Calcium 20 MG Tablet PO (21:25)
[2022-09-13] VITALS (20 sets, daily range): BP systolic 91–155; BP diastolic 30–96; PULSE 90–138; RESP 14–22; TEMP 36.3–36.7; O2SAT 93–97
[2022-09-13] MEDS: Furosemide 20 MG/2 ML VIAL IV (06:41)
[2022-09-13] MEDS: Insulin Lispro 100 UNIT/ML INSULN.PEN SC ×2 (06:41→21:15)
[2022-09-13] MEDS: levoFLOXacin 250 MG Tablet PO (06:43)
[2022-09-13 07:05] LABS: Bedside Glucose 174 mg/dL (74-106)
[2022-09-13] MEDS: Ipratropium/Albuterol Sulfate 3 ML AMPUL.NEB INHALATION ×5 (07:07→23:54)
[2022-09-13 07:14] LABS: International Normalized Ratio 2.1; Prothrombin Time (Protime)PT. 23.9 SECONDS (11.7-14.9)
[2022-09-13 07:33] LABS: Anion Gap 7 (5-15); BUN 51 mg/dL (7-18); BUN/Creat Ratio 33.3 RATIO (10-20); Calcium,Total 9.3 mg/dL (8.5-10.1); Chloride 105 mmol/L (98-107); Creatinine, Serum 1.53 mg/dL (0.55-1.02); EST Glomerular Filtration Rate 36 mL/min (>60); Est Glom Filt Rate - Afr Amer 43 mL/min (>60); Estimated Creatinine Clearance 25.82 ml/min; Glucose 163 mg/dL (74-106); Potassium 3.9 mmol/L (3.5-5.1); Sodium Level 137 mmol/L (136-145)
--- NOTE | 2022-09-13 08:40 | RAD_ITS ---
STUDY: X-RAY CHEST REASON FOR EXAM: Female, 72 years old. Pneumonia, chf TECHNIQUE: PA and lateral views of the chest. COMPARISON: Comparison is made with prior study September 09, 2022. FINDINGS: EKG electrodes are seen. Stable elevation of the right hemidiaphragm. The previously seen bilateral pulmonary infiltrates have cleared. There is no demonstrated pleural abnormality. Normal size heart. Normal mediastinum and nevin. Normal visualized pulmonary arteries. There is atherosclerotic calcification of the aortic arch with tortuosity. There are diffuse degenerative changes of the visualized thoracic spine. There is degenerative osteoarthritis of the bilateral shoulders. There is evidence of prior fusion of the lower cervical spine. There is no demonstrated abnormality of the visualized soft tissue structures of the upper abdomen. RAD/Chest PA and Lateral IMPRESSION: The lungs are now clear. Electronically Signed: Jordan Jones MD at 9:02 EDT ,
[2022-09-13] MEDS: dilTIAZem CD 240 MG Capsule PO (09:24)
[2022-09-13] MEDS: Enoxaparin 40 MG/0.4 ML Syringe SC (09:24)
[2022-09-13] MEDS: Tolterodine Tartrate 4 MG CAP.SA PO (09:25)
[2022-09-13] MEDS: guaiFENesin 1,200 MG Tablet 1200 MG PO ×2 (09:25→21:15)
[2022-09-13] MEDS: Ascorbic Acid 500 MG Tablet PO (09:25)
[2022-09-13] MEDS: Metoprolol(XL)Succ 100 MG Tablet PO ×2 (09:25→17:58)
[2022-09-13] MEDS: Sertraline 100 MG Tablet PO (09:25)
[2022-09-13] MEDS: amLODIPine 10 MG Tablet PO (09:25)
[2022-09-13] MEDS: Potassium Chloride Oral Tablet 20 MEQ PO ×2 (09:28→16:37)
[2022-09-13] MEDS: Ferrous Sulfate 325 MG Tablet PO (11:13)
--- NOTE | 2022-09-13 11:49 | PN_ITS ---
Subjective Subjective Patient seen and examined. She has no complaints and had an uneventful night and review of systems is otherwise negative. Later in the morning she was noted to be hypotensive and tachypneic after she received her afib meds. Objective Data Objective Data Vital Signs: Vital Signs Temp Pulse Resp BP Pulse Ox O2 Del Method O2 Flow Rate 97.7 F L 138 H 16 91/30 L 93 Room Air 3 09/13/22 09:16 09/13/22 11:10 09/13/22 09:16 09/13/22 11:10 09/13/22 11:10 09/13/22 11:10 09/12/22 10:00 Oxygen Flow Rate (L/min) 3 Oxygen Delivery Method Room Air Weight: 191 lb 4.792 oz Body Mass Index (BMI) 36.1 Intake & Output: Intake and Output for Last 24 Hours 09/11/22 09/12/22 09/13/22 23:59 23:59 23:59 Intake Total 1005 / 1485 1985 / 2385 500 / 500 Output Total 1850 / 3050 2900 / 2900 1200 / 1200 Balance -845 / -1565 -915 / -515 -700 / -700 Lab / Micro Data Result Diagrams: 09/14/22 05:40 09/14/22 05:40 Labs: Laboratory Results - last 24 hr 09/12/22 11:39: POC Glucose 398 H 09/12/22 15:56: POC Glucose 155 H 09/12/22 20:59: POC Glucose 261 H 09/13/22 06:32: PT 23.9 H, INR 2.1 09/13/22 06:32: Sodium 137, Potassium 3.9, Chloride 105, Carbon Dioxide 25.0, Anion Gap 7, BUN 51 H, Creatinine 1.53 H, Estim Creat Clear Calc 25.82, Est GFR (MDRD) Af Amer 43 L, Est GFR (MDRD) Non-Af 36 L, BUN/Creatinine Ratio 33.3 H, Glucose 163 H, Calcium 9.3 09/13/22 06:40: POC Glucose 174 H Micro: Microbiology 09/09/22 20:00 Blood Culture (Wb) - Right Hand Blood Culture - Preliminary No growth in 48 hours. 09/09/22 15:30 Blood Culture (Wb) - Left Forearm Blood Culture - Preliminary No growth in 48 hours. 09/10/22 11:30 Mucosa - Nasopharyngeal Respiratory Panel (PCR) - Final 09/09/22 16:30 Urine, Clean Catch Urine Culture - Final Mixed Gram Pos & Gram Neg Org 09/09/22 17:13 Mucosa - Nose Respiratory Panel (PCR) - Final 09/09/22 16:30 Urine, Clean Catch Legionella Antigen - Final 09/09/22 16:30 Urine, Clean Catch Streptococcus pneumoniae Antigen (M - Final 09/09/22 14:55 Nasal Secretion SARS-CoV-2 Antigen (Rapid) - Final Radiography Diagnostic Testing: Radiology Impression Chest X-Ray 09/13/22 08:40 IMPRESSION: The lungs are now clear. Electronically Signed: Jordan Jones MD at 9:02 EDT , Physical Exam Const alert, oriented x3 and no apparent distress HEENT normocephalic, head/scalp atraumatic and moist oral mucous membranes Eyes PERRL and EOMs intact bilaterally Neck no lymphadenopathy and supple Lymph Lymphatic: no lymphadenopathy noted and no lymphedema noted Resp normal respiratory effort, normal air movement and clear to auscultation bilaterally Cardio regular rate, S1 normal heart sound, S2 normal heart sound and no murmurs Cardio Narrative: tachypneic GI normal to inspection, nondistended, normoactive bowel sounds, soft to palpation, non-tender and non-distended Extremity normal capillary refill, no clubbing, cyanosis or edema and no calf tenderness Skin General Skin Exam: no breakdown Neuro CN's II-XII intact bilaterally, no focal motor deficits and no sensory deficits noted Motor Exam: strength 5/5 throughout Psych thought process normal, cooperative and affect normal Appearance: appropriate Assessment & Plan Assessment/Plan (1) Paroxysmal atrial fibrillation: PLAN: Plan #Acute hypoxic respiratory failure due to community-acquired pneumonia and acute on chronic heart failure preserved ejection fraction * Feeling much better. Blood pressure running low so we will hold Lasix. * Now switched to oral antibiotics. * titrate oxygen to maintain sats >90% * breathing treatment with bronchodilators * #Tachycardia in setting of afib * recieved her afib meds this morning. Subsequently noted to be hypotensive with BP down in the 90s systolic * Will give a bolus of normal saline 1 L and see if the heart rate will improve as well as the hypotension as I suspect this is all related to the hypotension * if it doesnt improve, will adjust meds * #Hypotension: Likely due to overdiuresis. Hold Lasix and BP meds. Patient being given a bolus of normal saline. Will monitor. #Hypercoagulable state due to patient being on Coumadin: We will monitor INR. #Type 2 diabetes mellitus: On insulin sliding scale. Accu-Cheks ACHS. #CKD stage IIIb: Creatinine at baseline. Will monitor .DVT prophylaxis: Not indicated as patient is on Coumadin. Total time spent on evaluation and management of patient, reviewing chart and specialist notes, discussing plan with patient, discussion with nursing and ancillary staff as well as documentation:42 mins Charges/Coding Visit Charges Inpatient E&M: 55995 Subs Hosp L2
[2022-09-13] MEDS: 0.9% Normal Saline 1,000 ML 1000 ML IV (12:56)
[2022-09-13 13:30] LABS: Bedside Glucose > 500 mg/dL (74-106)
[2022-09-13] MEDS: Insulin Lispro 100 UNIT/ML INSULN.PEN 15 UNIT SC (13:36)
[2022-09-13 13:45] LABS: Glucose 551 mg/dL (74-106)
[2022-09-13] MEDS: Metoprolol Tartrate 5 MG/5 ML Vial 2.5 MG IV (15:02)
[2022-09-13 17:00] LABS: Bedside Glucose 101 mg/dL (74-106)
[2022-09-13] MEDS: Metoprolol Tartrate 5 MG/5 ML Vial IV (21:05)
[2022-09-13] MEDS: 0.9% Saline Lock 10 ML Syringe IV (21:05)
[2022-09-13] MEDS: Atorvastatin Calcium 20 MG Tablet PO (21:15)
[2022-09-13 22:41] LABS: Bedside Glucose 188 mg/dL (74-106)
[2022-09-14] VITALS (14 sets, daily range): BP systolic 94–148; BP diastolic 60–104; PULSE 66–130; RESP 17–20; TEMP 36.7–36.9; O2SAT 93–98
[2022-09-14] MEDS: Ipratropium/Albuterol Sulfate 3 ML AMPUL.NEB INHALATION ×6 (03:30→23:20)
[2022-09-14] MEDS: levoFLOXacin 250 MG Tablet PO (05:00)
[2022-09-14] MEDS: Metoprolol(XL)Succ 100 MG Tablet PO ×2 (05:00→20:54)
[2022-09-14 06:06] LABS: Absolute Lymphocyte Count 2.39 X10^3/uL (0.83-4.51); Absolute Neutrophil Count 5.1 X10^3/uL (2.0-7.7); Basophil# 0.05 X10^3/uL; Basophil% 0.6 % (0-1); Eosinophil# 0.54 X10^3/uL; Eosinophils% 6.3 % (0-5); Hematocrit 35.2 % (37-47); Lymphocyte # 2.39 X10^3/ul (0.83-4.51); Lymphocyte % 27.8 % (19-41); Mean Corp Hgb Conc 31.3 g/dL (32-36); Mean Corpuscular Hgb 26.8 pg (27.0-32.0); Mean Corpuscular Volume 85.9 fL (81-99); Mean Platelet Vol. 10.4 fl (6.2-12.0); Monocyte# 0.45 X10^3/uL; Monocyte% 5.2 % (0-10); NRBC Flagged by Analyzer 0 % (0-5); Neutrophil # 5.14 X10^3/uL (2.7-7.7); Neutrophil % 59.8 % (47-70); Platelet Count 248 K/mm3 (150-450); RBC Distribution Width CV 15.5 % (11.6-14.6); RBC Distribution Width SD 48.9 fl (35.1-43.9); White Blood Count 8.6 K/mm3 (4.4-11.0)
[2022-09-14] MEDS: Insulin Lispro 100 UNIT/ML INSULN.PEN SC ×4 (06:35→20:55)
[2022-09-14 06:38] LABS: Anion Gap 6 (5-15); BUN 50 mg/dL (7-18); BUN/Creat Ratio 31.8 RATIO (10-20); Chloride 108 mmol/L (98-107); Creatinine, Serum 1.57 mg/dL (0.55-1.02); EST Glomerular Filtration Rate 35 mL/min (>60); Est Glom Filt Rate - Afr Amer 42 mL/min (>60); Estimated Creatinine Clearance 25.16 ml/min; Glucose 171 mg/dL (74-106); Potassium 3.8 mmol/L (3.5-5.1); Sodium Level 140 mmol/L (136-145)
[2022-09-14 07:05] LABS: Bedside Glucose 169 mg/dL (74-106)
[2022-09-14] MEDS: Potassium Chloride Oral Tablet 20 MEQ PO ×2 (07:37→16:00)
[2022-09-14] MEDS: Tolterodine Tartrate 4 MG CAP.SA PO (07:38)
[2022-09-14] MEDS: dilTIAZem CD 240 MG Capsule PO (07:38)
[2022-09-14] MEDS: Ascorbic Acid 500 MG Tablet PO (07:38)
[2022-09-14] MEDS: Enoxaparin 40 MG/0.4 ML Syringe SC (07:38)
[2022-09-14] MEDS: Sertraline 100 MG Tablet PO (07:38)
[2022-09-14] MEDS: guaiFENesin 1,200 MG Tablet 1200 MG PO ×2 (07:38→20:54)
[2022-09-14] MEDS: Digoxin 250 MCG/ML Ampul 500 MCG IV (08:12)
[2022-09-14] MEDS: 0.9% Saline Lock 10 ML Syringe IV ×2 (08:12→20:54)
--- NOTE | 2022-09-14 10:04 | CON.PCM.CA_ITS ---
Assessment & Plan Assessment/Plan (1) Paroxysmal atrial fibrillation: PLAN: Continue metoprolol and diltiazem for heart rate control. On warfarin for prevention of thromboembolic phenomenon. (2) Acute on chronic heart failure with preserved ejection fraction (HFpEF): PLAN: Improved. Change Lasix to 40 mg p.o. daily. Start SGLT2 inhibitors. (3) Hypertension: PLAN: Controlled. It is noted that the patient is both on amlodipine and diltiazem. Stop amlodipine. (4) CVA (cerebral vascular accident): PLAN: History of CVA in the past. On aspirin. On warfarin. (5) Urinary tract infection: PLAN: As per internal medicine. On antibiotics. (6) Diabetes mellitus: PLAN: As per internal medicine. HPI Consult Data Date of Consult: 09/14/22 HPI Narrative Reason for Consultation: Atrial fibrillation HPI Narrative: The patient has past medical history significant for paroxysmal atrial fibrillation and heart failure with preserved ejection fraction. She presented to the hospital with complaints of increasing shortness of breath. Denies any ankle edema. No orthopnea. No PND. Positive cough which was nonproductive. She was admitted to the hospital with diagnosis of diastolic heart failure and UTI. Patient denies any chest pains either at rest or with exertion. No palpitations. At home patient is on warfarin for her paroxysmal atrial fibrillation. [facility] Medical History Abnormal mammogram of right breast Abscess of right middle finger Acute kidney injury Alcohol use Anemia Anxiety Anxiety and depression Arthritis Atrial fib/flutter, transient Atrial fibrillation Back pain Bacteremia Breast lump Burn injury of skin of finger Cardiology follow-up encounter Chronic back pain Chronic cough COVID-19 vaccine series completed CPAP (continuous positive airway pressure) dependence CVA (cerebral vascular accident) Depression Depression with anxiety Dietary restriction DKA (diabetic ketoacidoses) Essential hypertension Finger infection Flu vaccine need Former smoker Health care maintenance History of echocardiogram History of edema History of stress test History of UTI Hyperlipidemia Irregular heartbeat Kidney disease [facility] (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 MRSA infection 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 without evidence of necrosis Non-rheumatic mitral valve stenosis Nonrheumatic aortic (valve) stenosis Osteoarthritis Osteomyelitis of finger of right hand Osteoporosis Overactive bladder Pancreatitis Paroxysmal atrial fibrillation Paroxysmal atrial fibrillation with RVR Post-menopausal Preoperative evaluation to rule out surgical contraindication Stage 3b chronic kidney disease (CKD) Tachycardia Urinary incontinence, overflow Venous insufficiency Vision problems Walker as ambulation aid Weakness Home Medications acetaminophen 325 mg capsule 650 mg PO PRN PRN Pain 12/02/21 [History Last Taken 07/08/22] amlodipine 10 mg tablet 10 mg PO DAILY BP #90 tabs 09/07/22 [Rx Last Taken Unknown] ascorbic acid (vitamin C) 500 mg tablet (Vitamin C) 500 mg PO DAILY vitamin #90 tabs 09/07/22 [Rx Last Taken Unknown] aspirin 81 mg chewable tablet 81 mg PO BREAKFAST Heart #90 tabs 09/07/22 [Rx Last Taken Unknown] cholecalciferol (vitamin D3) 50 mcg (2,000 unit) capsule 50 mcg PO DAILY vitamin #90 caps 09/07/22 [Rx Last Taken Unknown] ferrous sulfate 325 mg (65 mg iron) tablet 325 mg PO DAILY Supplement #90 tabs 09/07/22 [Rx Last Taken Unknown] glimepiride 4 mg tablet 4 mg PO BID dm 3 months #180 tabs 09/07/22 [Rx Last Taken Unknown] metformin 1,000 mg tablet 1,000 mg PO BID DM #180 tabs 09/07/22 [Rx Last Taken Unknown] multivitamin 1 tab PO DAILY SUPPLEMENT #90 tabs 09/07/22 [Rx Last Taken Unknown] oxybutynin chloride 15 mg tablet,extended release 24 hr 15 mg PO BID bladder #180 tabs 09/07/22 [Rx Last Taken Unknown] sertraline 100 mg tablet (Zoloft) 100 mg PO DAILY anxiety #90 tabs 09/07/22 [Rx Last Taken Unknown] atorvastatin 20 mg tablet (Lipitor) 20 mg PO DAILY Check with primary doctor 09/09/22 [History Last Taken Unknown] cephalexin 500 mg capsule 500 mg PO Q8H Check with primary doctor 09/09/22 [H istory Last Taken Unknown] diltiazem HCl 240 mg capsule,extended release 24 hr (Cardizem CD) 240 mg PO DAILY heart 09/09/22 [History Last Taken Unknown] metoprolol succinate 100 mg tablet,extended release 24 hr 100 mg PO BID Check with primary doctor 09/09/22 [History Last Taken Unknown] warfarin 3 mg tablet 3 mg PO DAILY Check with primary doctor 09/09/22 [History Last Taken Unknown] warfarin 6 mg tablet 6 mg PO QWEEK Check with primary doctor 09/09/22 [History Last Taken Unknown] Allergy/AdvReac Type Severity Reaction Status Date / Time fosinopril [From Monopril] Allergy Unknown unknown Verified 09/09/22 14:34 pioglitazone AdvReac Other Verified 09/09/22 14:34 Family History Father Diabetes High cholesterol Heart disease Melanoma Hypertension Mother Heart disease Brother AIDS (acquired immune deficiency syndrome) Surgical History History of back surgery History of carpal tunnel release History of hand surgery History of hysterectomy History of left elbow replacement History of surgical amputation of finger of right hand Hx of colonoscopy S/P hysterectomy S/P ORIF (open reduction internal fixation) fracture Status post surgical amputation of finger of right hand Social History household members: none Smoking Status: Former smoker how long ago did patient quit smokin years ago alcohol intake: current alcohol intake frequency: holidays/special occasions only substance use type: does not use what type of physical activity do you participate in: other details: aquasize Physical Exam Narrative Comfortable. No distress. Heart sounds 1 and 2 are noted. Irregularly irregular. Chest clear to auscultation bilaterally. Abdomen soft. Alert oriented x3. Trace bilateral ankle edema noted. Risk Stratification Risk Stratification Applicable: No Objective Data Vital Signs: Vital Signs Temp Pulse Resp BP Pulse Ox O2 Del Method O2 Flow Rate 98.3 F 125 H 18 94/62 97 Room Air 3 09/14/22 07:35 09/14/22 08:12 09/14/22 07:35 09/14/22 07:35 09/14/22 07:35 09/14/22 08:29 09/12/22 10:00 Oxygen Flow Rate (L/min) 3 Oxygen Delivery Method Room Air Weight: 191 lb 4.792 oz Body Mass Index (BMI) 36.1 Intake & Output: Intake and Output for Last 24 Hours 09/12/22 09/13/22 09/14/22 23:59 23:59 23:59 Intake Total 1984 / 2385 1500 / 1500 Output Total 2900 / 2900 1400 / 1400 300 / 300 Balance -915 / -515 100 / 100 -300 / -300 Lab / Micro Data Result Diagrams: 09/14/22 05:40 09/14/22 05:40 Labs: Laboratory Results - last 24 hr 09/13/22 13:02: POC Glucose > 500 H* 09/13/22 13:20: Glucose 551 H* 09/13/22 16:36: POC Glucose 101 09/13/22 21:13: POC Glucose 188 H 09/14/22 05:40: WBC 8.6, RBC 4.10 L, Hgb 11.0 L, Hct 35.2 L, MCV 85.9, MCH 26.8 L, MCHC 31.3 L, RDW Std Deviation 48.9 H, RDW Coeff of Zee 15.5 H, Plt Count 248, MPV 10.4, Immature Gran % (Auto) 0.300, Neut % (Auto) 59.8, Lymph % (Auto) 27.8, [place] % (Auto) 5.2, Eos % (Auto) 6.3 H, Baso % (Auto) 0.6, Absolute Neuts (auto) 5.1, Absolute Lymphs (auto) 2.39, Nucleated RBC % 0 09/14/22 05:40: Sodium 140, Potassium 3.8, Chloride 108 H, Carbon Dioxide 26.0, Anion Gap 6, BUN 50 H, Creatinine 1.57 H, Estim Creat Clear Calc 25.16, Est GFR (MDRD) Af Amer 42 L, Est GFR (MDRD) Non-Af 35 L, BUN/Creatinine Ratio 31.8 H, Glucose 171 H, Calcium 9.0 09/14/22 06:35: POC Glucose 169 H Rhythm Strip Rhythm Strip: A-fib Cardiology Labs/Tests 09/13/22 13:20: Glucose 551 H* 09/14/22 05:40: WBC 8.6, RBC 4.10 L, Hgb 11.0 L, Hct 35.2 L, MCV 85.9, MCH 26.8 L, MCHC 31.3 L, Plt Count 248, MPV 10.4, Immature Gran % (Auto) 0.300, Neut % (Auto) 59.8, Lymph % (Auto) 27.8, [place] % (Auto) 5.2, Eos % (Auto) 6.3 H, Baso % (Auto) 0.6, Absolute Neuts (auto) 5.1, Nucleated RBC % 0 09/14/22 05:40: Sodium 140, Potassium 3.8, Chloride 108 H, Carbon Dioxide 26.0, Anion Gap 6, BUN 50 H, Creatinine 1.57 H, Est GFR (MDRD) Af Amer 42 L, Est GFR (MDRD) Non-Af 35 L, BUN/Creatinine Ratio 31.8 H, Glucose 171 H, Calcium 9.0 Rhythm: Presently atrial fibrillation with controlled ventricular response. EKG: ECG on admission showed normal sinus rhythm. ECHO: Stress Test: Cardiac Cath: PCI: CT Surgery: Holter monitor: EPS: PPM: CXR: Chest CT Scan:
[2022-09-14] MEDS: Empagliflozin 10 MG Tablet PO (11:14)
[2022-09-14] MEDS: Ferrous Sulfate 325 MG Tablet PO (11:14)
--- NOTE | 2022-09-14 11:18 | PCM.PROGNOTE ---
Subjective Subjective Patient seen and examined. He has no complaints. Patient has remained tachycardic at a heart rate was up in the 130s yesterday. She is on Cardizem and metoprolol. She denies any chest pain, lightheadedness, dizziness, nausea vomiting or any other symptoms. Review of systems otherwise negative. Objective Data Objective Data Vital Signs: Vital Signs Temp Pulse Resp BP Pulse Ox O2 Del Method O2 Flow Rate 98.1 F 95 18 100/76 97 Room Air 3 09/14/22 10:00 09/14/22 10:00 09/14/22 10:00 09/14/22 10:00 09/14/22 10:00 09/14/22 10:00 09/12/22 10:00 Oxygen Flow Rate (L/min) 3 Oxygen Delivery Method Room Air Weight: 191 lb 4.792 oz Body Mass Index (BMI) 36.1 Intake & Output: Intake and Output for Last 24 Hours 09/12/22 09/13/22 09/14/22 23:59 23:59 23:59 Intake Total 1985 / 2385 1500 / 1500 Output Total 2900 / 2900 1400 / 1400 300 / 300 Balance -915 / -515 100 / 100 -300 / -300 Lab / Micro Data Result Diagrams: 09/14/22 05:40 09/14/22 05:40 Labs: Laboratory Results - last 24 hr 09/13/22 13:02: POC Glucose > 500 H* 09/13/22 13:20: Glucose 551 H* 09/13/22 16:36: POC Glucose 101 09/13/22 21:13: POC Glucose 188 H 09/14/22 05:40: WBC 8.6, RBC 4.10 L, Hgb 11.0 L, Hct 35.2 L, MCV 85.9, MCH 26.8 L, MCHC 31.3 L, RDW Std Deviation 48.9 H, RDW Coeff of Zee 15.5 H, Plt Count 248, MPV 10.4, Immature Gran % (Auto) 0.300, Neut % (Auto) 59.8, Lymph % (Auto) 27.8, [place] % (Auto) 5.2, Eos % (Auto) 6.3 H, Baso % (Auto) 0.6, Absolute Neuts (auto) 5.1, Absolute Lymphs (auto) 2.39, Nucleated RBC % 0 09/14/22 05:40: Sodium 140, Potassium 3.8, Chloride 108 H, Carbon Dioxide 26.0, Anion Gap 6, BUN 50 H, Creatinine 1.57 H, Estim Creat Clear Calc 25.16, Est GFR (MDRD) Af Amer 42 L, Est GFR (MDRD) Non-Af 35 L, BUN/Creatinine Ratio 31.8 H, Glucose 171 H, Calcium 9.0 09/14/22 06:35: POC Glucose 169 H Micro: Microbiology 09/09/22 20:00 Blood Culture (Wb) - Right Hand Blood Culture - Preliminary No growth in 48 hours. 09/09/22 15:30 Blood Culture (Wb) - Left Forearm Blood Culture - Preliminary No growth in 48 hours. 09/10/22 11:30 Mucosa - Nasopharyngeal Respiratory Panel (PCR) - Final 09/09/22 16:30 Urine, Clean Catch Urine Culture - Final Mixed Gram Pos & Gram Neg Org 09/09/22 17:13 Mucosa - Nose Respiratory Panel (PCR) - Final 09/09/22 16:30 Urine, Clean Catch Legionella Antigen - Final 09/09/22 16:30 Urine, Clean Catch Streptococcus pneumoniae Antigen (M - Final 09/09/22 14:55 Nasal Secretion SARS-CoV-2 Antigen (Rapid) - Final Rhythm Strip Rhythm Strip: A-fib Physical Exam Const alert, oriented x3, no apparent distress, healthy appearing and well nourished General Appearance: cooperative, well kempt and well developed HEENT normocephalic, head/scalp atraumatic, hearing grossly normal bilaterally and moist oral mucous membranes Eyes PERRL, EOMs intact bilaterally and conjunctivae normal Neck no lymphadenopathy, supple, no JVD and thyroid normal General: trachea midline Lymph Lymphatic: no lymphadenopathy noted and no lymphedema noted Resp clear to auscultation bilaterally Resp Narrative: mildly diminished breath sounds bibasally, no wheezes or crackles. Auscultation: crackles; Negative for rales, rhonchi or wheezes Cardio regular rhythm, S1 normal heart sound, S2 normal heart sound, no murmurs, no rub, no gallops and no clicks Cardio Narrative: tachypneic GI normal to inspection, nondistended, normoactive bowel sounds, soft to palpation, non-tender and non-distended Extremity normal capillary refill, no clubbing, cyanosis or edema and no calf tenderness Extremity Narrative: 1+ bilateral lower extremity pitting edema, no clubbing or cyanosis, patient reports edema is her chronic baseline amount Skin no rashes or lesions noted, No no wounds, skin turgor normal, no jaundice, no petechiae and no mottling General Skin Exam: no breakdown Neuro oriented x3, CN's II-XII intact bilaterally, moves all extremities, no focal motor deficits and no sensory deficits noted Sensorium / Orientation: awake, alert, oriented to person, oriented to place and oriented to time Motor Exam: strength 5/5 throughout Psych thought process normal, cooperative and affect normal Appearance: appropriate Assessment & Plan Assessment/Plan (1) Elevated brain natriuretic peptide (BNP) level: (2) Acute and chronic respiratory failure with hypoxia: PLAN: Plan #ACute hypoxic respiratory failure due to community-acquired pneumonia and acute on chronic heart failure preserved ejection fraction Feeling much better. hypotension resolved.. Now switched to oral antibiotics. titrate oxygen to maintain sats >90% breathing treatment with bronchodilators lasix held due to hypotension cardiology consulted; pateint started on SGLT2 inhibitor #Tachycardia in setting of afib Still tachycardic with heart rate up in the 130s. Give a dose of IV digoxin 0.5 mg x 1. Still on Cardizem and metoprolol. Cardiology consulted to adjust meds if possible. On Coumadin. will monitor INR #Hypotension:resolved. Likely due to overdiuresis #Hypercoagulable state due to patient being on Coumadin: We will monitor INR. #Type 2 diabetes mellitus: On insulin sliding scale. Accu-Cheks ACHS. #CKD stage IIIb: Creatinine at baseline. Will monitor .DVT prophylaxis: Not indicated as patient is on Coumadin. Total time spent on evaluation and management of patient, reviewing chart and specialist notes, discussing plan with patient, discussion with nursing and ancillary staff as well as documentation:40 mins Charges/Coding Visit Charges Inpatient E&M: 30934 [facility] Hosp L2
[2022-09-14 11:40] LABS: Bedside Glucose 335 mg/dL (74-106)
[2022-09-14 16:31] LABS: Bedside Glucose 272 mg/dL (74-106)
[2022-09-14] MEDS: Atorvastatin Calcium 20 MG Tablet PO (20:54)
[2022-09-14 22:05] LABS: Bedside Glucose 188 mg/dL (74-106)
[2022-09-15 03:04] VITALS: BP 154/79; PULSE 83; RESP 20; TEMP 36.9; O2SAT 97
[2022-09-15 03:35] VITALS: PULSE 82; RESP 20
[2022-09-15] MEDS: Ipratropium/Albuterol Sulfate 3 ML AMPUL.NEB INHALATION ×2 (03:35→07:01)
[2022-09-15 06:00] LABS: Absolute Lymphocyte Count 2.23 X10^3/uL (0.83-4.51); Absolute Neutrophil Count 7.5 X10^3/uL (2.0-7.7); Basophil# 0.04 X10^3/uL; Basophil% 0.4 % (0-1); Eosinophil# 0.55 X10^3/uL; Hematocrit 36.5 % (37-47); Hemoglobin 11.2 g/dL (12.0-15.0); Lymphocyte # 2.23 X10^3/ul (0.83-4.51); Lymphocyte % 20.2 % (19-41); Mean Corp Hgb Conc 30.7 g/dL (32-36); Mean Platelet Vol. 10.9 fl (6.2-12.0); Monocyte# 0.67 X10^3/uL; Monocyte% 6.1 % (0-10); NRBC Flagged by Analyzer 0 % (0-5); Neutrophil % 67.8 % (47-70); Platelet Count 257 K/mm3 (150-450); RBC Distribution Width CV 15.3 % (11.6-14.6); RBC Distribution Width SD 49.3 fl (35.1-43.9); Red Blood Count 4.15 M/mm3 (4.2-5.4); White Blood Count 11.1 K/mm3 (4.4-11.0)
[2022-09-15] MEDS: levoFLOXacin 250 MG Tablet PO (06:46)
[2022-09-15 06:49] LABS: Anion Gap 9 (5-15); BUN 45 mg/dL (7-18); Calcium,Total 9.2 mg/dL (8.5-10.1); Chloride 110 mmol/L (98-107); Creatinine, Serum 1.45 mg/dL (0.55-1.02); EST Glomerular Filtration Rate 38 mL/min (>60); Est Glom Filt Rate - Afr Amer 46 mL/min (>60); Estimated Creatinine Clearance 27.24 ml/min; Glucose 123 mg/dL (74-106); Potassium 3.9 mmol/L (3.5-5.1); Sodium Level 141 mmol/L (136-145)
[2022-09-15 07:03] VITALS: PULSE 74; RESP 16; O2SAT 93
[2022-09-15 07:06] LABS: Bedside Glucose 138 mg/dL (74-106)
[2022-09-15 08:40] VITALS: BP 142/77; PULSE 73; RESP 18; TEMP 36.6; O2SAT 93
[2022-09-15 08:41] VITALS: PULSE 73
[2022-09-15] MEDS: Metoprolol(XL)Succ 100 MG Tablet PO (08:41)
[2022-09-15] MEDS: Ascorbic Acid 500 MG Tablet PO (08:41)
[2022-09-15] MEDS: Tolterodine Tartrate 4 MG CAP.SA PO (08:41)
[2022-09-15] MEDS: dilTIAZem CD 240 MG Capsule PO (08:41)
[2022-09-15] MEDS: Potassium Chloride Oral Tablet 20 MEQ PO (08:41)
[2022-09-15] MEDS: Furosemide 20 MG Tablet PO (08:41)
[2022-09-15] MEDS: Empagliflozin 10 MG Tablet PO (08:41)
[2022-09-15] MEDS: guaiFENesin 1,200 MG Tablet 1200 MG PO (08:41)
[2022-09-15] MEDS: Sertraline 100 MG Tablet PO (08:42)
[2022-09-15] MEDS: Enoxaparin 40 MG/0.4 ML Syringe SC (08:42)
--- NOTE | 2022-09-15 10:44 | PN.CARD_ITS ---
Subjective Subjective Converted to normal sinus rhythm. Denies any complaints today. Objective Data Vital Signs: Vital Signs Temp Pulse Resp BP Pulse Ox O2 Del Method O2 Flow Rate 97.9 F 73 18 142/77 H 93 Room Air 3 09/15/22 08:40 09/15/22 08:41 09/15/22 08:40 09/15/22 08:40 09/15/22 08:40 09/15/22 08:40 09/12/22 10:00 Oxygen Flow Rate (L/min) 3 Oxygen Delivery Method Room Air Weight: 191 lb 4.792 oz Body Mass Index (BMI) 36.1 Intake & Output: Intake and Output for Last 24 Hours 09/13/22 09/14/22 09/15/22 23:59 23:59 23:59 Intake Total 1500 / 1500 Output Total 1400 / 1400 950 / 950 600 / 600 Balance 100 / 100 -950 / -950 -600 / -600 Lab / Micro Data Result Diagrams: 09/15/22 04:51 09/15/22 04:51 Labs: Laboratory Results - last 24 hr 09/14/22 11:15: POC Glucose 335 H 09/14/22 15:58: POC Glucose 272 H 09/14/22 20:50: POC Glucose 188 H 09/15/22 04:51: WBC 11.1 H, RBC 4.15 L, Hgb 11.2 L, Hct 36.5 L, MCV 88.0, MCH 27.0, MCHC 30.7 L, RDW Std Deviation 49.3 H, RDW Coeff of Zee 15.3 H, Plt Count 257, MPV 10.9, Immature Gran % (Auto) 0.500, Neut % (Auto) 67.8, Lymph % (Auto) 20.2, [place] % (Auto) 6.1, Eos % (Auto) 5.0, Baso % (Auto) 0.4, Absolute Neuts (auto) 7.5, Absolute Lymphs (auto) 2.23, Nucleated RBC % 0 09/15/22 04:51: Sodium 141, Potassium 3.9, Chloride 110 H, Carbon Dioxide 22.0, Anion Gap 9, BUN 45 H, Creatinine 1.45 H, Estim Creat Clear Calc 27.24, Est GFR (MDRD) Af Amer 46 L, Est GFR (MDRD) Non-Af 38 L, BUN/Creatinine Ratio 31.0 H, Glucose 123 H, Calcium 9.2 09/15/22 06:45: POC Glucose 138 H Micro: Microbiology 09/09/22 20:00 Blood Culture (Wb) - Right Hand Blood Culture - Final No growth in 5 days. 09/09/22 15:30 Blood Culture (Wb) - Left Forearm Blood Culture - Final No growth in 5 days. Rhythm Strip Rhythm Strip: Sinus Rhythm Cardiology Labs/Tests 09/15/22 04:51: WBC 11.1 H, RBC 4.15 L, Hgb 11.2 L, Hct 36.5 L, MCV 88.0, MCH 27.0, MCHC 30.7 L, Plt Count 257, MPV 10.9, Immature Gran % (Auto) 0.500, Neut % (Auto) 67.8, Lymph % (Auto) 20.2, [place] % (Auto) 6.1, Eos % (Auto) 5.0, Baso % (Auto) 0.4, Absolute Neuts (auto) 7.5, Nucleated RBC % 0 09/15/22 04:51: Sodium 141, Potassium 3.9, Chloride 110 H, Carbon Dioxide 22.0, Anion Gap 9, BUN 45 H, Creatinine 1.45 H, Est GFR (MDRD) Af Amer 46 L, Est GFR (MDRD) Non-Af 38 L, BUN/Creatinine Ratio 31.0 H, Glucose 123 H, Calcium 9.2 Rhythm: EKG: ECHO: Stress Test: Cardiac Cath: PCI: CT Surgery: Holter monitor: EPS: PPM: CXR: Chest CT Scan: Assessment & Plan Assessment/Plan (1) Paroxysmal atrial fibrillation: PLAN: Converted spontaneously to normal sinus rhythm. Will consider referral to EP for A-fib ablation as outpatient. Continue metoprolol and diltiazem for heart rate control. If heart rate tends to go on the bradycardic side, then decrease diltiazem. On warfarin for prevention of thromboembolic phenomenon. (2) Acute on chronic heart failure with preserved ejection fraction (HFpEF): PLAN: Improved. Continue Lasix. Continue beta-blockers. Continue Jardiance. (3) Hypertension: PLAN: Continue to monitor. (4) CVA (cerebral vascular accident): PLAN: History of CVA in the past. On aspirin. On warfarin. (5) Diabetes mellitus: PLAN: As per internal medicine. PLAN: Plan No further cardiac input at present. We will sign off. Please call if needed.
[2022-09-15] MEDS: Insulin Lispro 100 UNIT/ML INSULN.PEN SC (11:13)
[2022-09-15] MEDS: Ferrous Sulfate 325 MG Tablet PO (11:14)
[2022-09-15 11:35] LABS: Bedside Glucose 267 mg/dL (74-106)
--- NOTE | 2022-09-15 11:47 | DCINST_ITS ---
Discharge Instructions Diet Discharge Diet: Low fat / Low cholesterol Activity Discharge Activity: Return to Normal Activity Dressing / Incision Call your doctor if you observe: Fever of 101 or Higher, Shortness of breath, Dizziness, Swelling in the ankles, Chest pain and Increased palpitations (irregular heartbeat) Follow Up Care Test Results: Test results from this visit will be discussed in further detail at your follow- up appointment, if applicable. Discharge Plan Admission Admit Date/Time: 09/09/22 16:53 Primary Reason for Your Visit: heart failure, afib with RR Attending Provider: Kisha Lopez Primary Care Provider: Sulma Reagan Consulting Providers: Omayra Cho ; Guanaco Jasmine ; Yobany Connor Instructions Patient Instructions: ED Heart Failure, Congestive (CHF) Discharge Orders/Prescriptions Prescriptions: New Jardiance 10 mg Tablet 10 mg PO DAILY Qty: 30 1RF furosemide 20 mg Tablet 20 mg PO DAILY Qty: 30 2RF Continued acetaminophen 325 mg capsule 650 mg PO PRN PRN (Reason: Pain) atorvastatin [Lipitor] 20 mg tablet 20 mg PO DAILY diltiazem HCl [Cardizem CD] 240 mg capsule,extended release 24hr 240 mg PO DAILY metoprolol succinate 100 mg tablet extended release 24 hr 100 mg PO BID warfarin 3 mg tablet 3 mg PO DAILY Rx Instructions: take every day but once week takes 6mg warfarin 6 mg tablet 6 mg PO QWEEK amlodipine 10 mg tablet 10 mg PO DAILY Qty: 90 3RF ascorbic acid (vitamin C) [Vitamin C] 500 mg tablet 500 mg PO DAILY Qty: 90 3RF aspirin 81 mg tablet,chewable 81 mg PO BREAKFAST Qty: 90 3RF cholecalciferol (vitamin D3) 50 mcg (2,000 unit) capsule 50 mcg PO DAILY Qty: 90 3RF ferrous sulfate 325 mg (65 mg iron) tablet 325 mg PO DAILY Qty: 90 3RF glimepiride 4 mg tablet 4 mg PO BID 90 Days Qty: 180 3RF metformin 1,000 mg tablet 1,000 mg PO BID Qty: 180 3RF multivitamin Tablet 1 tab PO DAILY Qty: 90 3RF oxybutynin chloride 15 mg tablet extended release 24hr 15 mg PO BID Qty: 180 1RF sertraline [Zoloft] 100 mg tablet 100 mg PO DAILY Qty: 90 3RF Discontinued cephalexin [cephalexin] 500 mg capsule 500 mg PO Q8H Referrals / Follow Up: Sulma Reagan MD [Primary Care Provider] - Within 2 Weeks Disposition Disposition (needs filled in before D/C Order can be placed): Home, Self Care
--- NOTE | 2022-09-15 11:50 | PCM.DC.SUM ---
Providers Date of Admission: 09/09/22 Date of Discharge: 09/15/22 Primary Care Physician: Dr. Sulma Reagan MD Consultations 09/14/22 07:37 Consult: Cardiology Routine Consulting Provider: Yobany Connor Reason for Consult: afib, poorly controlled EMERGENT Consult: No MD Notified: Yes Date Notified: 09/14/22 Time Notified: 07:37 Method of Notification: Text Reason For Visit: SEPSIS/ACUTE HYPOXIC RESPIRATORY FAILURE Diagnosis Discharge Diagnosis (1) Paroxysmal atrial fibrillation: Status: Chronic Code(s): I48.0 - Paroxysmal atrial fibrillation (2) Acute on chronic heart failure with preserved ejection fraction (HFpEF): Status: Acute Code(s): I50.33 - Acute on chronic diastolic (congestive) heart failure (3) Hypertension: Status: Chronic Code(s): I10 - Essential (primary) hypertension (4) CVA (cerebral vascular accident): Status: Chronic Code(s): I63.9 - Cerebral infarction, unspecified (5) Diabetes mellitus: Status: Acute Code(s): E11.9 - Type 2 diabetes mellitus without complications Plan #Acute hypoxic respiratory failure due to community-acquired pneumonia and acute on chronic heart failure preserved ejection fraction Feeling much better. Blood pressure running low so we will hold Lasix. Now switched to oral antibiotics. titrate oxygen to maintain sats >90% breathing treatment with bronchodilators #Tachycardia in setting of afib recieved her afib meds this morning. Subsequently noted to be hypotensive with BP down in the 90s systolic Will give a bolus of normal saline 1 L and see if the heart rate will improve as well as the hypotension as I suspect this is all related to the hypotension if it doesnt improve, will adjust meds #Hypotension: Likely due to overdiuresis. Hold Lasix and BP meds. Patient being given a bolus of normal saline. Will monitor. #Hypercoagulable state due to patient being on Coumadin: We will monitor INR. #Type 2 diabetes mellitus: On insulin sliding scale. Accu-Cheks ACHS. #CKD stage IIIb: Creatinine at baseline. Will monitor .DVT prophylaxis: Not indicated as patient is on Coumadin. Total time spent on evaluation and management of patient, reviewing chart and specialist notes, discussing plan with patient, discussion with nursing and ancillary staff as well as documentation:42 mins Medications at Discharge Home Medications acetaminophen 325 mg capsule 650 mg PO PRN PRN Pain 12/02/21 amlodipine 10 mg tablet 10 mg PO DAILY BP #90 tabs 09/07/22 ascorbic acid (vitamin C) 500 mg tablet (Vitamin C) 500 mg PO DAILY vitamin #90 tabs 09/07/22 aspirin 81 mg chewable tablet 81 mg PO BREAKFAST Heart #90 tabs 09/07/22 cholecalciferol (vitamin D3) 50 mcg (2,000 unit) capsule 50 mcg PO DAILY vitamin #90 caps 09/07/22 ferrous sulfate 325 mg (65 mg iron) tablet 325 mg PO DAILY Supplement #90 tabs 09/07/22 glimepiride 4 mg tablet 4 mg PO BID dm 3 months #180 tabs 09/07/22 metformin 1,000 mg tablet 1,000 mg PO BID DM #180 tabs 09/07/22 multivitamin 1 tab PO DAILY SUPPLEMENT #90 tabs 09/07/22 oxybutynin chloride 15 mg tablet,extended release 24 hr 15 mg PO BID bladder #180 tabs 09/07/22 sertraline 100 mg tablet (Zoloft) 100 mg PO DAILY anxiety #90 tabs 09/07/22 atorvastatin 20 mg tablet (Lipitor) 20 mg PO DAILY Check with primary doctor 09/09/22 diltiazem HCl 240 mg capsule,extended release 24 hr (Cardizem CD) 240 mg PO DAILY heart 09/09/22 metoprolol succinate 100 mg tablet,extended release 24 hr 100 mg PO BID Check with primary doctor 09/09/22 warfarin 3 mg tablet 3 mg PO DAILY Check with primary doctor 09/09/22 warfarin 6 mg tablet 6 mg PO QWEEK Check with primary doctor 09/09/22 empagliflozin 10 mg tablet (Jardiance) 10 mg PO DAILY #30 tabs 09/15/22 furosemide 20 mg tablet 20 mg PO DAILY #30 tabs 09/15/22 Hospital Course Operations None Procedures 2-D Echocardiogram Summary of Care Provided Minutes Spent on Discharge: 55 Hospital Course: Patient is a 72-year-old female with a past medical history as outlined who was admitted to the ED on 09/09/2022 with a complaint of shortness of breath which had been going on for about 2 days and worsening. She had assisted cough which was nonproductive. She did also have some urinary frequency and had some mild generalized weakness. She was tachypneic on room air on admission and she was saturating at 85% on room air. She was placed on 6 L but subsequently required up to 15 L of oxygen. Troponin was 11 and BNP was 272. Urinalysis showed no evidence of infection. EKG showed no acute ST changes and chest x-ray showed bilateral patchy focal infiltrates. She was admitted and managed for acute hypoxic respiratory failure due to pneumonia and probable heart failure with preserved ejection fraction exacerbation as well as sepsis due to UTI and suspected pneumonia. COVID test was negative. She was started on IV Vanco and Zosyn as well as azithromycin. She was diuresed with IV Lasix. CT of the chest showed no evidence of PE. Antibiotics were subsequently switched to oral antibiotics. Hospital course was complicated by difficulty with controlling her heart rate. She was given a dose of digoxin and cardiology was consulted. Cardiology reviewed patient and continued her current rate limiting medications of metoprolol and Cardizem. She also was continued on her Coumadin and consider being referred to EP on outpatient basis for A-fib ablation. Patient's heart rate control improved and she felt much better. She was discharged home on 09/15/2022. 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 Patient seen and examined prior to discharge. She felt much better and had no complaints. She had an uneventful night. Review of systems otherwise negative. Labs and vitals reviewed. Home medication reviewed and reconciled. She had completed at least a 5-day course of antibiotics so she was not given a prescription for antibiotics. Physical Exam Const alert, oriented x3, no apparent distress, healthy appearing and well nourished General Appearance: cooperative, comfortable, well kempt and well developed Orientation / Consciousness: awake, oriented to person, oriented to place and oriented to time HEENT normocephalic, head/scalp atraumatic, hearing grossly normal bilaterally and moist oral mucous membranes Mouth: oral and palatal mucosa normal Eyes PERRL, EOMs intact bilaterally and conjunctivae normal Neck no lymphadenopathy, supple, no JVD, thyroid normal and no carotid bruits General: trachea midline Lymph Lymphatic: no lymphadenopathy noted and no lymphedema noted Resp normal respiratory effort, normal air movement, no retractions, no use of accessory muscles and clear to auscultation bilaterally Resp Narrative: mildly diminished breath sounds bibasally, no wheezes or crackles. Auscultation: crackles; Negative for rales, rhonchi or wheezes Cardio regular rate, regular rhythm, S1 normal heart sound, S2 normal heart sound, no murmurs, no rub, no gallops and no clicks GI normal to inspection, nondistended, normoactive bowel sounds, soft to palpation, non-tender and non-distended Extremity normal to inspection, full ROM, normal capillary refill, no clubbing, cyanosis or edema and no calf tenderness Skin no rashes or lesions noted, No no wounds, skin turgor normal, no jaundice, no petechiae and no mottling General Skin Exam: no breakdown Neuro oriented x3, CN's II-XII intact bilaterally, moves all extremities, no focal motor deficits and no sensory deficits noted Sensorium / Orientation: awake, alert, oriented to person, oriented to place and oriented to time Speech: speech normal Motor Exam: strength 5/5 throughout Psych thought process normal, cooperative and affect normal Appearance: appropriate Weight / BMI Weight Weight: 191 lb 4.792 oz Body Mass Index (BMI) 36.1 ABG / Lab / Microbiology Data Result Diagrams: 09/15/22 04:51 09/15/22 04:51 Laboratory: Laboratory Results - last 24 hr 09/14/22 15:58: POC Glucose 272 H 09/14/22 20:50: POC Glucose 188 H 09/15/22 04:51: WBC 11.1 H, RBC 4.15 L, Hgb 11.2 L, Hct 36.5 L, MCV 88.0, MCH 27.0, MCHC 30.7 L, RDW Std Deviation 49.3 H, RDW Coeff of Zee 15.3 H, Plt Count 257, MPV 10.9, Immature Gran % (Auto) 0.500, Neut % (Auto) 67.8, Lymph % (Auto) 20.2, Loíza % (Auto) 6.1, Eos % (Auto) 5.0, Baso % (Auto) 0.4, Absolute Neuts (auto) 7.5, Absolute Lymphs (auto) 2.23, Nucleated RBC % 0 09/15/22 04:51: Sodium 141, Potassium 3.9, Chloride 110 H, Carbon Dioxide 22.0, Anion Gap 9, BUN 45 H, Creatinine 1.45 H, Estim Creat Clear Calc 27.24, Est GFR (MDRD) Af Amer 46 L, Est GFR (MDRD) Non-Af 38 L, BUN/Creatinine Ratio 31.0 H, Glucose 123 H, Calcium 9.2 09/15/22 06:45: POC Glucose 138 H 09/15/22 11:12: POC Glucose 267 H Microbiology: Microbiology 09/09/22 20:00 Blood Culture (Wb) - Right Hand Blood Culture - Final No growth in 5 days. 09/09/22 15:30 Blood Culture (Wb) - Left Forearm Blood Culture - Final No growth in 5 days. 09/10/22 11:30 Mucosa - Nasopharyngeal Respiratory Panel (PCR) - Final 09/09/22 16:30 Urine, Clean Catch Urine Culture - Final Mixed Gram Pos & Gram Neg Org 09/09/22 17:13 Mucosa - Nose Respiratory Panel (PCR) - Final 09/09/22 16:30 Urine, Clean Catch Legionella Antigen - Final 09/09/22 16:30 Urine, Clean Catch Streptococcus pneumoniae Antigen (M - Final 09/09/22 14:55 Nasal Secretion SARS-CoV-2 Antigen (Rapid) - Final D/C Instructions Discharge Diet: Low fat / Low cholesterol Discharge Activity: Return to Normal Activity Call your doctor if you observe: Fever of 101 or Higher, Shortness of breath, Dizziness, Swelling in the ankles, Chest pain and Increased palpitations (irregular heartbeat) Meaningful Use Info Meaningful Use Diagnoses (Choose all that apply): CHF CHF JESSICA/ARB ordered at discharge?: No Reason JESSICA/ARB not ordered?: Not indicated Documented LVEF (%): 75 Discharge Plan Admission Admit Date/Time: 09/09/22 16:53 Primary Reason for Your Visit: heart failure, afib with RR Attending Provider: Kisha Lopez Primary Care Provider: Sulma Reagan Consulting Providers: Omayra Cho ; Guanaco Jasmine ; Yobany Connor Instructions Patient Instructions: ED Heart Failure, Congestive (CHF) Discharge Orders/Prescriptions Prescriptions: New Jardiance 10 mg Tablet 10 mg PO DAILY Qty: 30 1RF furosemide 20 mg Tablet 20 mg PO DAILY Qty: 30 2RF Continued acetaminophen 325 mg capsule 650 mg PO PRN PRN (Reason: Pain) atorvastatin [Lipitor] 20 mg tablet 20 mg PO DAILY diltiazem HCl [Cardizem CD] 240 mg capsule,extended release 24hr 240 mg PO DAILY metoprolol succinate 100 mg tablet extended release 24 hr 100 mg PO BID warfarin 3 mg tablet 3 mg PO DAILY Rx Instructions: take every day but once week takes 6mg warfarin 6 mg tablet 6 mg PO QWEEK amlodipine 10 mg tablet 10 mg PO DAILY Qty: 90 3RF ascorbic acid (vitamin C) [Vitamin C] 500 mg tablet 500 mg PO DAILY Qty: 90 3RF aspirin 81 mg tablet,chewable 81 mg PO BREAKFAST Qty: 90 3RF cholecalciferol (vitamin D3) 50 mcg (2,000 unit) capsule 50 mcg PO DAILY Qty: 90 3RF ferrous sulfate 325 mg (65 mg iron) tablet 325 mg PO DAILY Qty: 90 3RF glimepiride 4 mg tablet 4 mg PO BID 90 Days Qty: 180 3RF metformin 1,000 mg tablet 1,000 mg PO BID Qty: 180 3RF multivitamin Tablet 1 tab PO DAILY Qty: 90 3RF oxybutynin chloride 15 mg tablet extended release 24hr 15 mg PO BID Qty: 180 1RF sertraline [Zoloft] 100 mg tablet 100 mg PO DAILY Qty: 90 3RF Discontinued cephalexin [cephalexin] 500 mg capsule 500 mg PO Q8H Referrals / Follow Up: Guanaco Mckeon NP, SHALINIC [Med Staff - Adv Practice Prof] - 09/29/22 10:00 am Yobany Connor MD [Med Staff - Active Staff] - Within 2 Weeks Disposition Disposition (needs filled in before D/C Order can be placed): Home, Self Care Charges/Coding Visit Charges Inpatient E&M: 49385 Disch Hosp >30min
--- NOTE | 2022-09-15 12:20 | CASEMGMT ---
RN CM notified that patient is ready for discharge today. RN CM called and updated [facility] for planned discharge today. Per Myra, start of care planned for tomorrow. CORNELIO ALMANZAR in to patient's room and updated patietn regarding [facility] start of care for tomorrow. Patient voiced understanding and denied further needs at discharge. Patient had no further questions at this time.
== END 2022-09-15 12:40 | disposition home or self-care (01) | DRG 871 ==
LOC: ED 17:04 → PCU 17:09
PROVIDERS: Internal Medicine; Admitting Provider Internal Medicine; Emergency Provider Student in an Organized Health Care Education/Training Program; PCP Internal Medicine; Visit Provider Student in an Organized Health Care Education/Training Program
DX: A41.9 Sepsis, unspecified organism (principal); J96.01 Acute respiratory failure with hypoxia; I50.33 Acute on chronic diastolic (congestive) heart failure; J18.9 Pneumonia, unspecified organism; E87.20 Acidosis, unspecified; I13.0 Hypertensive heart and chronic kidney disease with heart failure and stage 1 through stage 4 chronic kidney disease, or unspecified chronic kidney disease; N39.0 Urinary tract infection, site not specified; E11.22 Type 2 diabetes mellitus with diabetic chronic kidney disease; I48.0 Paroxysmal atrial fibrillation; N18.32 Chronic kidney disease, stage 3b; D64.9 Anemia, unspecified; E78.5 Hyperlipidemia, unspecified; F41.8 Other specified anxiety disorders; R79.1 Abnormal coagulation profile; Z79.01 Long term (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; Z79.82 Long term (current) use of aspirin; Z87.891 Personal history of nicotine dependence; Z79.84 Long term (current) use of oral hypoglycemic drugs; G89.29 Other chronic pain
CPT/HCPCS: 11042; 36415; 71045; 71046; 71275; 80048; 80053; 80076; 81001; 82947; 82962; 83605; 83735; 83880; 84100; 84484; 85025; 85610; 87040; 87086; 87088; 87186; 87449; 87633; 87635; 87811; 93005; 94640; 94668; 94760; 94762; 96374; 97110; 97116; 97162; 97166; 97530; 97535; 97802; 99252; 99283; 99284; J7030; J7040; Q9967; A4216; G0463; J1940; U0003; U0005

== ENCOUNTER 2022-09-20 10:35 | Outpatient (RCR) | payer MEDICARE, SELFPAY ==
[2022-09-13 00:42] VITALS: BP 128/80; PULSE 120; RESP 16; TEMP 36.1; BMI 34.9
[2022-09-20 10:45] VITALS: BP 151/61; PULSE 52; RESP 16; TEMP 35.4; BMI 34.9
--- NOTE | 2022-09-20 13:34 | PN.PCM_ITS ---
History of Present Illness Date of Service: 09/20/22 Chief Complaint: Right long finger ulcer History of Wound: This 72-year-old white female was seen in the emergency room at [facility] for redness and drainage of a right third finger amputation stump site and positive MRSA blood cultures. She was seen in the emergency room 3 days prior and sent home on Keflex but the wound culture came back positive for MRSA and the prescription was changed from Keflex to Bactrim, the morning she was seen in the ER this admission, her blood culture was positive for Staph aureus and she was called to the ED for evaluation. Blood work showed a normal white blood cell count, patient's creatinine was elevated at 2.33 and BUN was 68 patient's blood sugar was 167. 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 Patient was admitted to PCU for a nonhealing amputation stump MRSA ulcer with exposed bone suspicious for os teomyelitis and started on IV antibiotics. She has diabetes mellitus and is at risk for worsening infection that may extend to other parts of the hand which may lead to stiffness and difficulty with range of motion. Surgery 07/12/22 - Surgical preparation right long finger amputation stump ulcer with incision and drainage and excisional debridement MRSA abscess and partial ostectomy middle phalanx for osteomyelitis. Operative tissue cultures positive for Enterobacter cloacae complex and MRSA. Operative bone cultures positive for MRSA and MRSE. She was discharged home on 07/15/22 with a PICC line and IV Vancomycin and oral Cipro. She was seen by ID while hospitalized and is to follow up with him in 2 weeks. She has home health and friends to help with the IV antibiotics and dressing changes. Today she denies fever, chills, nausea or vomiting. Progress of Wound: Right long finger ulcer is healed. She was sent to the ED after her last appointment here and spent over a week in the hospital after her last visit. She states that she is feeling much better. She had pneumonia and Afib RVR. She was discharged home on 09/15/22. Objective Data Objective Data Vital Signs: Vital Signs Temp Pulse Resp BP 95.7 F L 52 L 16 151/61 H 09/20/22 10:45 09/20/22 10:45 09/20/22 10:45 09/20/22 10:45 Weight: 185 lb Body Mass Index (BMI) 34.9 Charges/Coding Visit Charges Office Visits / Consults: 35126 OV L3 Est Physical Exam Const alert, oriented x3 and no apparent distress General Appearance: cooperative HEENT normocephalic Head and Scalp: atraumatic Eyes General Eye: normal appearance of both eyes Lymph Lymphatic: no lymphedema noted Resp normal respiratory effort and clear to auscultation bilaterally Effort and Inspection: able to speak in complete sentences Cardio regular rate and regular rhythm GI non-tender Extremity normal capillary refill Skin Wound Narrative: Right long finger ulcer is healed. She is not able to bend her long finger at PIP joint. Neuro CN's II-XII intact bilaterally Psych affect normal Appearance: grossly normal Debridement Note Debridement Note Post-Debridement Measurements and Additional Note: Post-Debridement Measurements/Treatment - Nurse 1 - General Ulcer Assessment Start: 09/20/22 10:44 Freq: Status: Active Protocol: DENG Activity Type Activity Date Activity User E-sign Co-sign Detail Recorded Client Recorded Date Recorded By Document 09/20/22 10:[address] [facility] [id number] 09/20/22 10:[address] [facility] 09/20/22 10:45 - Today's Visit Information Type of service Follow-up Visit (Physician/BOX STAMPER ) Arrival Mode Ambulatory, Walker Patient Identification Verified (Name & Yes ) Patient Requires Transmission-Based No Precautions Height and Weight Body Mass Index (BMI) 34.9 BMI Classification Obese Vital Signs Temperature (97.8 F-99.1 F) 95.7 F L Temperature Source Temporal Pulse Rate (60-100) 52 L Pulse Location Monitor Respiratory Rate (12-18) 16 Respiratory rate source Observation Blood Pressure (90/60-120/80) 151/61 H Blood Pressure Mean (mm Hg) 91 Source Monitor Position Semi-Fowlers Blood Pressure Location Left Arm History Since Last Visit- (Skip if this is Patient's initial visit) Have you changed medications since your Yes last visit? Any new allergies or adverse reactions No Had a fall/change in ADL's that may No increase risk of falls Signs or symptoms of abuse and/or No neglect since last visit Have you been in the hospital since your Yes last visit? Has dressing in place as prescribed Yes Has compression in place as prescribed N/A Has offloadiing in place as prescribed N/A Experienced any changes in pain level or No management Left Footwear Regular Shoe Right Footwear Regular Shoe Pain Scale: 0-10 Numeric Is Patient Pain Free? Yes - Nurse 1 - General Ulcer Measurement Start: 09/20/22 10:44 Freq: Status: Active Protocol: Activity Type Activity Date Activity User E-sign Co-sign Detail Recorded Client Recorded Date Recorded By Document 09/20/22 10:[address] [facility] [id number] 09/20/22 10:[address] [facility] 09/20/22 10:45 Wound Center Nurse 1 #1- R 3RD FINGER (POST OP) -Combined with other wound No -Current Size (cm) - Length 0.1 -Current Size (cm) - Width 0.1 -Current Size (cm) - Depth 0.1 -Total Square Cm 0.01 -Photo Taken Yes -Epithelialization Large 67-100% -Tunneling No -Undermining/Tunneling No -Circular Undermining No -Exudate Type Purulent -Wound Margin Flat & Intact -Granulation Amt None Present (0 %) -Slough/Fibrin Yes -Necrosis Amt Large (67-100%) -Necrotic Tissue Type Adherent Slough -Structure Exposed N/A -Texture (Jesisca-wound Skin Appearance) Assessed -Moisture (Jessica-wound Skin Appearance) Assessed,Dry/ Scaly -Color (Jessica-wound Skin Appearance) Assessed -Temperature (Jessica-wound Skin No Abnormality Appearance) (Pt Warm) -Tenderness on Palpation (Jessica-wound No Skin Appearance) -Ulcer Cleansing Rinsed/ Irrigated with Saline -Foul Odor after Cleansing No -Anesthetic Used 5% Lidocaine Gel Lower Limb Edema Present NA - Nurse 2 - General Ulcer CM Notes Start: 09/20/22 10:44 Freq: Status: Active Protocol: Activity Type Activity Date Activity User E-sign Co-sign Detail Recorded Client Recorded Date Recorded By Document 09/20/22 10:[address] [facility] [id number] 09/20/22 10:[address] [facility] 09/20/22 10:52 Wound Center Nurse 2 #1- R 3RD FINGER (POST OP) -Correct Patient No -Correct Side, Site, Position No -Correct Procedure No -Procedure Performed No -Post Debridement (cm) - Length 0 -Post Debridement (cm) - Width 0 -Post Debridement (cm) - Depth 0 -Total Square (Post) (cm) 0 -Area of Debridement (cm) - Length 0 -Area of Debridement (cm) - Width 0 -Total Square (Area) (cm) 0 -Wound/Ulcer Outcome Healed- Epithelialized Pain Scale: 0-10 Numeric Is Patient Pain Free? Yes - Nurse 3 - General Ulcer D/C NN Start: 09/20/22 10:44 Freq: Status: Active Protocol: Activity Type Activity Date Activity User E-sign Co-sign Detail Recorded Client Recorded Date Recorded By Document 09/20/22 10:[address] [facility] [id number] 09/20/22 10:[address] [facility] 09/20/22 10:56 Is Patient Pain Free? 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 Her right long finger ulcer is healed. Encouraged range of motion. She is not able to bend the PIP joint of her right long finger. She states that it doesn't bother her. She is to follow up as needed. Will discharge her today from the wound healing center.
== END 2022-10-13 23:59 | disposition home or self-care (01) ==
LOC: WC 10:35
PROVIDERS: PCP Internal Medicine; Visit Provider Nurse Practitioner Family
DX: Z09 Encounter for follow-up examination after completed treatment for conditions other than malignant neoplasm (principal); E11.9 Type 2 diabetes mellitus without complications; Z89.021 Acquired absence of right finger(s); Z79.01 Long term (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; Z79.899 Other long term (current) drug therapy; Z79.82 Long term (current) use of aspirin; Z86.14 Personal history of Methicillin resistant Staphylococcus aureus infection; Z87.39 Personal history of other diseases of the musculoskeletal system and connective tissue
CPT/HCPCS: 99213; G0463

== ENCOUNTER → 2022-10-14 | Outpatient (CLI) | payer MEDICARE, SELFPAY | END | disposition home or self-care (01) | LOC: LAB 08:09 | PROVIDERS: PCP Internal Medicine; Referring Provider Nurse Practitioner Family; Visit Provider Nurse Practitioner Family | DX: A41.9 Sepsis, unspecified organism (principal); I13.0 Hypertensive heart and chronic kidney disease with heart failure and stage 1 through stage 4 chronic kidney disease, or unspecified chronic kidney disease; N39.0 Urinary tract infection, site not specified ==

== ENCOUNTER → 2022-10-21 | Outpatient (CLI) | payer MEDICARE, SELFPAY ==
[2022-10-21 11:27] LABS: INR Fingerstick 1.5; Prothrombin Time Fingerstick 16.3 SEC (11.7-14.9)
== END | disposition home or self-care (01) ==
LOC: LAB 09:29
PROVIDERS: PCP Internal Medicine; Visit Provider Internal Medicine
DX: I48.0 Paroxysmal atrial fibrillation (principal); N39.0 Urinary tract infection, site not specified
CPT/HCPCS: 36416; 85610

== ENCOUNTER → 2022-11-01 | Outpatient (CLI) | payer MEDICARE, SELFPAY ==
[2022-11-01 12:50] LABS: Absolute Lymphocyte Count 1.28 X10^3/uL (0.83-4.51); Absolute Neutrophil Count 7.4 X10^3/uL (2.0-7.7); Basophil# 0.05 X10^3/uL; Basophil% 0.5 % (0-1); Eosinophil# 0.31 X10^3/uL; Eosinophils% 3.2 % (0-5); Hematocrit 40.4 % (37-47); Hemoglobin 12.5 g/dL (12.0-15.0); Lymphocyte # 1.28 X10^3/ul (0.83-4.51); Lymphocyte % 13.3 % (19-41); Mean Corp Hgb Conc 30.9 g/dL (32-36); Mean Corpuscular Hgb 27.3 pg (27.0-32.0); Mean Corpuscular Volume 88.2 fL (81-99); Mean Platelet Vol. 10.1 fl (6.2-12.0); Monocyte# 0.53 X10^3/uL; Monocyte% 5.5 % (0-10); NRBC Flagged by Analyzer 0 % (0-5); Neutrophil # 7.43 X10^3/uL (2.7-7.7); Neutrophil % 77.1 % (47-70); Platelet Count 309 K/mm3 (150-450); RBC Distribution Width CV 15.9 % (11.6-14.6); RBC Distribution Width SD 50.1 fl (35.1-43.9); Red Blood Count 4.58 M/mm3 (4.2-5.4); White Blood Count 9.6 K/mm3 (4.4-11.0)
[2022-11-01 13:00] LABS: ALB/GLOB Ratio 0.8 RATIO (0.9-2.4); AST(SGOT) 22 U/L (15-37); Alanine Aminotransfer ALT/SGPT 28 U/L (13-56); Albumin, Serum 3.5 g/dL (3.2-5.0); Alkaline Phosphatase 76 U/L (45-117); Anion Gap 8 (5-15); BUN 32 mg/dL (7-18); BUN/Creat Ratio 21.3 RATIO (10-20); Calcium,Total 9.9 mg/dL (8.5-10.1); Chloride 105 mmol/L (98-107); EST Glomerular Filtration Rate 36 mL/min (>60); Est Glom Filt Rate - Afr Amer 44 mL/min (>60); Globulin 4.6 g/dL (2.2-4.2); Glucose 72 mg/dL (74-106); Potassium 4.1 mmol/L (3.5-5.1); Protein, Total 8.1 g/dL (6.4-8.2); Sodium Level 137 mmol/L (136-145)
[2022-11-01 14:21] LABS: Hemoglobin A1c 6.5 % (3.8-5.6)
== END | disposition home or self-care (01) ==
LOC: BIMLAB 11:01
PROVIDERS: PCP Internal Medicine; Referring Provider Internal Medicine; Visit Provider Internal Medicine
DX: I10 Essential (primary) hypertension (principal); E11.9 Type 2 diabetes mellitus without complications
CPT/HCPCS: 36415; 80053; 83036; 85025

== ENCOUNTER 2022-11-09 09:00 | Outpatient (RCR) | payer MEDICARE, SELFPAY ==
[2022-10-14 00:35] VITALS: BP 151/61; PULSE 52; RESP 16; TEMP 35.4; BMI 34.9
[2022-10-26 09:11] VITALS: BP 120/48; PULSE 65; RESP 16; TEMP 35.9; BMI 34.9
--- NOTE | 2022-10-26 09:49 | PCM.WC.HP ---
History of Present Illness Date of Service: 10/26/22 Chief Complaint: Multiple, small superficial ulcerations in the lower extremities bilaterally History of Wound: This 72-year-old white female who presented with bilateral lower extremity ulcerations. They are small in size, but multiple in number. They have been present for a lengthy period of time. 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 The patient has been using silver cell and Alberto wraps. The patient also experiences swelling and edema in her lower extremities. She sleeps in a bed at night. The patient has recently been hospitalized at [facility] following amputation of her distal right third finger, following which she developed a MRSA infection/osteomyelitis with positive MRSA blood cultures. She has been under the care of Dr. Kiran Wolff, plastic surgeon, in this regard. Her recent MRSA infection is said to have been her first and only history of MRSA infections. She underwent surgery on 07/12/22 for surgical preparation right long finger amputation stump ulcer with incision and drainage and excisional debridement MRSA abscess and partial ostectomy middle phalanx for osteomyelitis. Operative tissue cultures positive for Enterobacter cloacae complex and MRSA. Operative bone cultures positive for MRSA and MRSE. She was discharged home on 07/15/22 with a PICC line and IV Vancomycin and oral Cipro. She was seen by ID while hospitalized and was to follow up ID post-discharge. [facility] Medical History Abnormal mammogram of right breast Abscess of right middle finger Acute kidney injury Acute on chronic heart failure Alcohol use Anemia Anxiety Anxiety and depression Arthritis Atrial fib/flutter, transient Atrial fibrillation Back pain Bacteremia Bilateral leg ulcer Breast lump Burn injury of skin of finger Cardiology follow-up encounter Chronic anticoagulation Chronic back pain Chronic cough CKD (chronic kidney disease) COVID-19 vaccine series completed CPAP (continuous positive airway pressure) dependence CVA (cerebral vascular accident) Depression Depression with anxiety Diabetes mellitus Dietary restriction DKA (diabetic ketoacidoses) Elevated brain natriuretic peptide (BNP) level Essential hypertension Finger infection Flu vaccine need Former smoker Health care maintenance History of cerebrovascular accident History of echocardiogram History of edema History of stress test History of UTI Hyperlipidemia Hypertension Intertrigo Irregular heartbeat Kidney 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 MRSA infection 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 without evidence of necrosis Non-rheumatic mitral valve stenosis Nonrheumatic aortic (valve) stenosis Osteoarthritis Osteomyelitis of finger of right hand Osteoporosis Overactive bladder Pancreatitis Paroxysmal A-fib Paroxysmal atrial fibrillation Paroxysmal atrial fibrillation with RVR Post-menopausal Preoperative evaluation to rule out surgical contraindication Stage 3b chronic kidney disease (CKD) Subtherapeutic international normalized ratio (INR) Tachycardia Urinary incontinence, overflow Venous insufficiency Vision problems Walker as ambulation aid Weakness Home Medications acetaminophen 325 mg capsule 650 mg PO PRN PRN Pain 12/02/21 [History Last Taken 07/08/22] amlodipine 10 mg tablet 10 mg PO DAILY BP #90 tabs 09/07/22 [Rx Last Taken Unknown] ascorbic acid (vitamin C) 500 mg tablet (Vitamin C) 500 mg PO DAILY vitamin #90 tabs 09/07/22 [Rx Last Taken Unknown] aspirin 81 mg chewable tablet 81 mg PO BREAKFAST Heart #90 tabs 09/07/22 [Rx Last Taken Unknown] cholecalciferol (vitamin D3) 50 mcg (2,000 unit) capsule 50 mcg PO DAILY vitamin #90 caps 09/07/22 [Rx Last Taken Unknown] ferrous sulfate 325 mg (65 mg iron) tablet 325 mg PO DAILY Supplement #90 tabs 09/07/22 [Rx Last Taken Unknown] glimepiride 4 mg tablet 4 mg PO BID dm 3 months #180 tabs 09/07/22 [Rx Last Taken Unknown] metformin 1,000 mg tablet 1,000 mg PO BID DM #180 tabs 09/07/22 [Rx Last Taken Unknown] multivitamin 1 tab PO DAILY SUPPLEMENT #90 tabs 09/07/22 [Rx Last Taken Unknown] oxybutynin chloride 15 mg tablet,extended release 24 hr 15 mg PO BID bladder #180 tabs 09/07/22 [Rx Last Taken Unknown] sertraline 100 mg tablet (Zoloft) 100 mg PO DAILY anxiety #90 tabs 09/07/22 [Rx Last Taken Unknown] atorvastatin 20 mg tablet (Lipitor) 20 mg PO DAILY Check with primary doctor 09/09/22 [History Last Taken Unknown] diltiazem HCl 240 mg capsule,extended release 24 hr (Cardizem CD) 240 mg PO DAILY heart 09/09/22 [History Last Taken Unknown] furosemide 20 mg tablet 20 mg PO DAILY #30 tabs 09/15/22 [Rx Last Taken Unknown] metoprolol succinate 100 mg tablet,extended release 24 hr 100 mg PO BID Check with primary doctor #60 tabs 09/29/22 [Rx Last Taken Unknown] WOUND CARE #1 ea 10/06/22 [Rx Last Taken Unknown] apixaban 5 mg tablet 5 mg PO BID blood thinner #180 tabs 10/15/22 [Rx Last Taken Unknown] nystatin 100,000 unit/gram topical powder 1 applic topical BID PRN Rash 10/26/22 [History Last Taken Unknown] Allergy/AdvReac Type Severity Reaction Status Date / Time fosinopril [From Monopril] Allergy Unknown Other Verified 10/26/22 09:23 pioglitazone AdvReac Other Verified 10/26/22 09:23 Family History Father Diabetes High cholesterol Heart disease Melanoma Hypertension Mother Heart disease Brother AIDS (acquired immune deficiency syndrome) Surgical History History of amputation of finger of right hand History of back surgery History of back surgery History of carpal tunnel release History of carpal tunnel release History of hand surgery History of hysterectomy History of hysterectomy History of left elbow replacement History of left elbow replacement History of surgical amputation of finger of right hand Hx of colonoscopy S/P hysterectomy S/P ORIF (open reduction internal fixation) fracture Status post surgical amputation of finger of right hand Social History household members: none Smoking Status: Never smoker how long ago did patient quit smokin years ago alcohol intake: current alcohol intake frequency: holidays/special occasions only substance use type: does not use what type of physical activity do you participate in: other details: aquasize Vital Signs Vital Signs Vital Signs: 10/26/22 09:11 Temperature 96.7 F L Temperature Source Temporal Pulse Rate 65 Respiratory Rate 16 Blood Pressure 120/48 L Blood Pressure Mean 72 Blood Pressure Source Monitor Blood Pressure Position Sitting Blood Pressure Location Left Arm Oxygen Delivery Method Room Air Weight Weight: 185 lb Body Mass Index (BMI) 34.9 Physical Exam Const alert, oriented x3, no apparent distress and well nourished Constitutional Narrative: The patient is mildly obese. General Appearance: cooperative, comfortable and well developed Orientation / Consciousness: awake, oriented to person, oriented to place and oriented to time HEENT normocephalic and head/scalp atraumatic Head and Scalp: normal to inspection, normocephalic and atraumatic External Ear: external ears normal Eyes PERRL and EOMs intact bilaterally General Eye: normal appearance of both eyes Resp normal respiratory effort, normal air movement, no retractions and no use of accessory muscles Effort and Inspection: able to speak in complete sentences Extremity no calf tenderness General Extremity: Negative for clubbing or cyanosis Skin Wound Narrative: Mild swelling and edema are noted in the patient's lower extremities bilaterally. Multiple small, superficial ulcerations are noted in both lower extremities, between knee and ankle. There is slight erythema associated with some of the ulcerations. Pedal pulses are strong by Doppler signal assessment. The location and dimensions of the ulcerations are documented elsewhere. There is a moderate amount of bioburden associated with each of the ulcerations. Neuro oriented x3, CN's II-XII intact bilaterally and moves all extremities Sensorium / Orientation: awake, alert, oriented to person, oriented to place and oriented to time Psych Appearance: grossly normal and appropriate Attitude: calm Activity / Motor Behavior: appropriate eye contact Speech: normal speech Mood & Affect: euthymic mood Thought Process: normal thought process Thought Content: normal thought content Attention / Concentration: attention grossly intact Debridement Note Debridement Note Wound debrided: Multiple, small superficial ulcerations in the lower extremities bilateral Laterality: Not Applicable (Bilateral) Type of Debridement: Excisional debridement Anesthesia Used: 5% Lidocaine Gel Depth: Down to and including healthy tissue and in the subcutaneous layer Percentage of wound debrided: 100 Instrument Used: 5mm curette Tissue Removed: Bioburden and nonviable tissue Severity: Fat Layer Exposed Amount of bleeding with debridement: Mild Bleeding Controlled with: Compression and gauze Patient tolerated procedure: Patient tolerated procedure well Debridement Free Text: Because of mild erythema associated with some of the patient's ulcerations, and her recent history of MRSA, swab cultures were obtained for both aerobic and anaerobic bacterial growth. Culture results will be awaited. Post-Debridement Measurements and Additional Note: Post-Debridement Measurements/Treatment WC - Nurse 1 - General Ulcer Assessment Start: 10/26/22 09:11 Freq: Status: Active Protocol: [email or web address] Activity Type Activity Date Activity User E-sign Co-sign Detail Recorded Client Recorded Date Recorded By Document 10/26/22 09:11 [facility] [id number] 10/26/22 09:22 [facility] 10/26/22 09:11 WC - Today's Visit Information Type of service Initial Visit Arrival Mode Ambulatory, Walker Transfer Assistance None Patient Identification Verified (Name & Yes ) Patient Requires Transmission-Based No Precautions Height and Weight Height 5 ft 1 in Weight 185 lb Weight in Pounds 185.0 lbs Body Mass Index (BMI) 34.9 BMI Classification Obese BSA - Florina 1.83 Vital Signs Temperature (97.8 F-99.1 F) 96.7 F L Temperature Source Temporal Pulse Rate (60-100) 65 Pulse Location Monitor Respiratory Rate (12-18) 16 Respiratory rate source Observation Oxygen Delivery Method Room Air Blood Pressure (90/60-120/80) 120/48 L Blood Pressure Mean 72 Source Monitor Position Sitting Blood Pressure Location Left Arm History Since Last Visit- (Skip if this is Patient's initial visit) Left Footwear Regular Shoe Right Footwear Regular Shoe Pain Scale: 0-10 Numeric Is Patient Pain Free? Yes Lower Extremity Assessment/ Foot Assessment/ Toe Nail Assessment Right -Posterior Tibial Doppler Multiphasic -Dorsalis Pedis Doppler Multiphasic -Extremity Color Pale -Hair Growth on Legs Yes -Hair Growth on Toes No -Temperature of Extremity Cool -Other Deformity No -Prior Foot Ulcer No -Charcot Joint No -Prior Amputation No -Thick Yes -Discolored Yes -Deformed No -Improper Length & Hygeine No Left -Posterior Tibial Doppler Monophasic -Dorsalis Pedis Doppler Monophasic -Extremity Color Pale -Hair Growth on Legs Yes -Hair Growth on Toes Yes -Temperature of Extremity Cool -Thick Yes -Discolored Yes -Deformed No -Improper Length & Hygeine No Communication Assessment Preferred language Hebrew X Ray Physician Required No Able to Read Yes Able to Write Yes Communication Tools None Right Hearing Abillity Normal Left Hearing Abillity Normal Teaching Assessment Preferences Verbal,Written, Audio/Visual, Demonstration Barriers to Learning None Readiness To Learn Excellent Willingness to Engage in Self Management High Activies Readiness to Engage in Self Management High Activities Anxiety Level Calm Cooperation Cooperative Perception Coherent Interest in Health Problem Asks Questions Education Importance Acknowledges Need Does Patient Smoke tobacco or other No substances Smoking Status Never smoker Is Patient Diabetic Yes WC - Nurse 1 - General Ulcer Measurement Start: 10/26/22 09:11 Freq: Status: Active Protocol: Activity Type Activity Date Activity User E-sign Co-sign Detail Recorded Client Recorded Date Recorded By Document 10/26/22 09:11 BMF [id number] 10/26/22 09:22 BMF Edit Result 10/26/22 09:11 BMF (1) [id number] 10/26/22 09:33 BMF (1) #5- L GR TOE - Combined with other wound => No - Current Size (cm) - Length => 0.5 - Current Size (cm) - Width => 0.5 - Current Size (cm) - Depth => 0.3 - Total Square Cm => 0.25 - Date of Last Picture (Recall this => 10/26/22 field) - Photo Taken => Yes - Epithelialization => None Present - Tunneling => No - Undermining/Tunneling => No - Circular Undermining => No - Exudate Amt => None Present - Wound Margin => Distinct, Outline => Attached - Granulation Amt => Large (67-100%) - Granulation Quality => Red - Slough/Fibrin => Yes - Necrotic Tissue Type => Adherent Slough - Texture (Jessica-wound Skin Appearance) => Callus,Scarring - Moisture (Jessica-wound Skin Appearance) => Assessed,Dry/Scaly - Color (Jessica-wound Skin Appearance) => Assessed - Temperature (Jessica-wound Skin => No Abnormality (Pt Appearance) => Warm) - Tenderness on Palpation (Jessica-wound => No Skin Appearance) - Ulcer Cleansing => Rinsed/Irrigated => with Saline - Foul Odor after Cleansing => No - Anesthetic Used => 5% Lidocaine Gel 10/26/22 09:11 Wound Center Nurse 1 #5- L GR TOE -Combined with other wound No -Current Size (cm) - Length 0.5 -Current Size (cm) - Width 0.5 -Current Size (cm) - Depth 0.3 -Total Square Cm 0.25 -Date of Last Picture (Recall this 10/26/22 field) -Photo Taken Yes -Epithelialization None Present -Tunneling No -Undermining/Tunneling No -Circular Undermining No -Exudate Amt None Present -Wound Margin Distinct, Outline Attached -Granulation Amt Large (67-100%) -Granulation Quality Red -Slough/Fibrin Yes -Necrotic Tissue Type Adherent Slough -Texture (Jessica-wound Skin Appearance) Callus,Scarring -Moisture (Jessica-wound Skin Appearance) Assessed,Dry/ Scaly -Color (Jessica-wound Skin Appearance) Assessed -Temperature (Jessica-wound Skin No Abnormality Appearance) (Pt Warm) -Tenderness on Palpation (Jessica-wound No Skin Appearance) -Ulcer Cleansing Rinsed/ Irrigated with Saline -Foul Odor after Cleansing No -Anesthetic Used 5% Lidocaine Gel #4- L MED LE CLUSTER -Combined with other wound No -Current Size (cm) - Length 14.5 -Current Size (cm) - Width 7 -Current Size (cm) - Depth 0.1 -Total Square Cm 101.5 -Date of Last Picture (Recall this 10/26/22 field) -Photo Taken Yes -Epithelialization None Present -Tunneling No -Undermining/Tunneling No -Circular Undermining No -Exudate Amt Small -Exudate Type Sanguineous -Wound Margin Distinct, Outline Attached -Granulation Amt Medium (34-66%) -Granulation Quality Red -Slough/Fibrin Yes -Necrosis Amt Medium (34-66%) -Necrotic Tissue Type Adherent Slough -Texture (Jessica-wound Skin Appearance) Assessed, Scarring -Moisture (Jessica-wound Skin Appearance) Assessed -Color (Jessica-wound Skin Appearance) Assessed -Temperature (Jessica-wound Skin No Abnormality Appearance) (Pt Warm) -Tenderness on Palpation (Jessica-wound No Skin Appearance) -Ulcer Cleansing Rinsed/ Irrigated with Saline -Foul Odor after Cleansing No -Anesthetic Used 4% Lidocaine Solution #3- L LAT LE CLUSTER -Combined with other wound No -Current Size (cm) - Length 5.4 -Current Size (cm) - Width 2 -Current Size (cm) - Depth 0.1 -Total Square Cm 10.8 -Date of Last Picture (Recall this 10/26/22 field) -Photo Taken Yes -Epithelialization None Present -Tunneling No -Undermining/Tunneling No -Circular Undermining No -Exudate Amt Small -Exudate Type Sanguineous -Wound Margin Distinct, Outline Attached -Granulation Amt Medium (34-66%) -Granulation Quality Red -Slough/Fibrin Yes -Necrosis Amt Medium (34-66%) -Necrotic Tissue Type Eschar -Texture (Jessica-wound Skin Appearance) Assessed, Scarring -Moisture (Jessica-wound Skin Appearance) Assessed -Color (Jessica-wound Skin Appearance) Assessed -Temperature (Jessica-wound Skin No Abnormality Appearance) (Pt Warm) -Tenderness on Palpation (Jessica-wound No Skin Appearance) -Ulcer Cleansing Rinsed/ Irrigated with Saline -Foul Odor after Cleansing No -Anesthetic Used 4% Lidocaine Solution #2- RLE CLUSTER -Combined with other wound No -Current Size (cm) - Length 14.5 -Current Size (cm) - Width 9 -Current Size (cm) - Depth 0.1 -Total Square Cm 130.5 -Date of Last Picture (Recall this 10/26/22 field) -Photo Taken Yes -Epithelialization None Present -Tunneling No -Undermining/Tunneling No -Circular Undermining No -Exudate Amt Small -Exudate Type Sanguineous -Wound Margin Distinct, Outline Attached -Granulation Amt Medium (34-66%) -Granulation Quality Red -Slough/Fibrin Yes -Necrosis Amt Medium (34-66%) -Necrotic Tissue Type Eschar -Texture (Jessica-wound Skin Appearance) Assessed, Scarring -Moisture (Jessica-wound Skin Appearance) Assessed -Color (Jessica-wound Skin Appearance) Assessed -Temperature (Jessica-wound Skin No Abnormality Appearance) (Pt Warm) -Tenderness on Palpation (Jessica-wound No Skin Appearance) -Ulcer Cleansing Rinsed/ Irrigated with Saline -Foul Odor after Cleansing No -Anesthetic Used 4% Lidocaine Solution -Wound Comment(s) SOME ARE SCABBED. PT PICKS/SCRATCHES Lower Limb Edema Present Yes Right Calf (cm) 36.2 Right Ankle (cm) 23 Left Calf (cm) 37.5 Left Ankle (cm) 23.2 Assessment/Plan Assessment/Plan (1) Bilateral leg ulcer: CODE(S): L97.919 - Non-pressure chronic ulcer of unspecified part of right lower leg with unspecified severity; L97.929 - Non-pressure chronic ulcer of unspecified part of left lower leg with unspecified severity QUALIFIERS: Non-pressure ulcer stage: with fat layer exposed Qualified Code(s): L97.912 - Non-pressure chronic ulcer of unspecified part of right lower leg with fat layer exposed; L97.922 - Non-pressure chronic ulcer of unspecified part of left lower leg with fat layer exposed (2) CKD (chronic kidney disease): CODE(S): N18.9 - Chronic kidney disease, unspecified (3) Acute on chronic heart failure: CODE(S): I50.9 - Heart failure, unspecified (4) Paroxysmal A-fib: CODE(S): I48.0 - Paroxysmal atrial fibrillation (5) Chronic anticoagulation: CODE(S): Z79.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 (6) Hyperlipidemia: CODE(S): E78.5 - Hyperlipidemia, unspecified (7) Essential hypertension: CODE(S): I10 - Essential (primary) hypertension (8) Non-rheumatic mitral valve stenosis: CODE(S): I34.2 - Nonrheumatic mitral (valve) stenosis (9) Nonrheumatic aortic (valve) stenosis: CODE(S): I35.0 - Nonrheumatic aortic (valve) stenosis (10) History of cerebrovascular accident: CODE(S): Z86.73 - Personal history of transient ischemic attack (TIA), and cerebral infarction without residual deficits (11) Pulmonary hypertension: CODE(S): I27.20 - Pulmonary hypertension, unspecified (12) Renal insufficiency: CODE(S): N28.9 - Disorder of kidney and ureter, unspecified (13) Type II diabetes mellitus: CODE(S): E11.9 - Type 2 diabetes mellitus without complications (14) Obstructive sleep apnea: CODE(S): G47.33 - Obstructive sleep apnea (adult) (pediatric) (15) Urinary incontinence, overflow: CODE(S): N39.490 - Overflow incontinence (16) Hypertriglyceridemia: CODE(S): E78.1 - Pure hyperglyceridemia (17) Failure to thrive: (18) Venous insufficiency: CODE(S): I87.2 - Venous insufficiency (chronic) (peripheral) (19) Osteoporosis: CODE(S): M81.0 - Age-related osteoporosis without current pathological fracture QUALIFIERS: Osteoporosis type: age-related Presence of current pathological fracture: without current pathological fracture Qualified Code(s): M81.0 - Age-related osteoporosis without current pathological fracture (20) Debility: CODE(S): R53.81 - Other malaise (21) History of back surgery: CODE(S): Z98.890 - Other specified postprocedural states (22) History of carpal tunnel release: CODE(S): Z98.890 - Other specified postprocedural states (23) History of hysterectomy: CODE(S): Z90.710 - Acquired absence of both cervix and uterus (24) History of left elbow replacement: CODE(S): Z96.622 - Presence of left artificial elbow joint (25) History of amputation of finger of right hand: CODE(S): Z89.021 - Acquired absence of right finger(s) PLAN: Plan This is a 72-year-old diabetic female with multiple pre-existing medical problems, which are listed herein. She presents with multiple small, superficial ulcerations in her lower extremities bilaterally. 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 Picking and scratching at her ulcerations has been strongly discouraged. The patient has been urged to elevate her lower extremities is much as possible. Elevation is to be to heart level, or higher. She is to continue sleeping on a flat mattress at night. Elevation is to occur during daytime hours as well. Prolonged idle sitting has been discouraged. Activity has been encouraged. We are to implement the use of Promogran topically to each of the superficial ulcerations in the lower extremities. So as to help prevent scratching and picking on the part of the patient, we are to use 3M 2 layer compression wraps, which will be changed twice weekly with the Promogran. The patient is to return in 1 week for reevaluation. We will await the results of swab cultures for aerobic and anaerobic bacterial growth, with concern that the patient has recently been treated for a MRSA infection related to a right middle finger amputation. She has been encouraged to follow-up with her teacher tutor, Dr. Wayne Spencer, relative to an ulceration on her right great toe. Total time: 56 minutes
[2022-11-02 11:40] VITALS: BP 142/67; PULSE 69; TEMP 36.3; BMI 34.9
--- NOTE | 2022-11-02 12:13 | HP.PCM_ITS ---
History of Present Illness Date of Service: 11/02/22 Chief Complaint: Multiple, small superficial ulcerations in the lower extr emities bilaterally History of Wound: This 72-year-old white female who presented with bilateral lower extremity ulcerations. They are small in size, but multiple in number. They have been present for a lengthy period of time. 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 The patient has been using silver cell and Alberto wraps. The patient also experiences swelling and edema in her lower extremities. She sleeps in a bed at night. The patient has recently been hospitalized at [facility] following amputation of her distal right third finger, follow ing which she developed a MRSA infection/osteomyelitis with positive MRSA blood cultures. She has been under the care of Dr. Kiran Wolff, plastic surgeon, in this regard. Her recent MRSA infection is said to have been her first and only history of MRSA infections. She underwent surgery on 07/12/22 for surgical preparation right long finger amputation stump ulcer with incision and drainage and excisional debridement MRSA abscess and partial ostectomy middle phalanx for osteomyelitis. Operative tissue cultures positive for Enterobacter cloacae complex and MRSA. Operative bone cultures positive for MRSA and MRSE. She was discharged home on 07/15/22 with a PICC line and IV Vancomycin and oral Cipro. She was seen by ID while hospitalized and was to follow up ID post- discharge. [facility] Medical History Abnormal mammogram of right breast Abscess of right middle finger Acute kidney injury Acute on chronic heart failure Alcohol use Anemia Anxiety Anxiety and depression Arthritis Atrial fib/flutter, transient Atrial fibrillation Back pain Bacteremia Bilateral leg ulcer Breast lump Burn injury of skin of finger Cardiology follow-up encounter Chronic anticoagulation Chronic back pain Chronic cough CKD (chronic kidney disease) COVID-19 vaccine series completed CPAP (continuous positive airway pressure) dependence CVA (cerebral vascular accident) Depression Depression with anxiety Diabetes mellitus Dietary restriction DKA (diabetic ketoacidoses) Elevated brain natriuretic peptide (BNP) level Essential hypertension Finger infection Flu vaccine need Former smoker Health care maintenance History of cerebrovascular accident History of echocardiogram History of edema History of stress test History of UTI Hyperlipidemia Hypertension Intertrigo Irregular heartbeat Kidney disease 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 (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 MRSA infection 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 without evidence of necrosis Non-rheumatic mitral valve stenosis Nonrheumatic aortic (valve) stenosis Osteoarthritis Osteomyelitis of finger of right hand Osteoporosis Overactive bladder Pancreatitis Paroxysmal A-fib Paroxysmal atrial fibrillation Paroxysmal atrial fibrillation with RVR Post-menopausal Preoperative evaluation to rule out surgical contraindication Stage 3b chronic kidney disease (CKD) Subtherapeutic international normalized ratio (INR) Tachycardia Urinary incontinence, overflow Venous insufficiency Vision problems Walker as ambulation aid Weakness Home Medications acetaminophen 325 mg capsule 650 mg PO PRN PRN Pain 12/02/21 [History Last Taken 07/08/22] amlodipine 10 mg tablet 10 mg PO DAILY BP #90 tabs 09/07/22 [Rx Last Taken Unknown] ascorbic acid (vitamin C) 500 mg tablet (Vitamin C) 500 mg PO DAILY vitamin #90 tabs 09/07/22 [Rx Last Taken Unknown] aspirin 81 mg chewable tablet 81 mg PO BREAKFAST Heart #90 tabs 09/07/22 [Rx Last Taken Unknown] cholecalciferol (vitamin D3) 50 mcg (2,000 unit) capsule 50 mcg PO DAILY vitamin #90 caps 09/07/22 [Rx Last Taken Unknown] ferrous sulfate 325 mg (65 mg iron) tablet 325 mg PO DAILY Supplement #90 tabs 09/07/22 [Rx Last Taken Unknown] glimepiride 4 mg tablet 4 mg PO BID dm 3 months #180 tabs 09/07/22 [Rx Last Taken Unknown] metformin 1,000 mg tablet 1,000 mg PO BID DM #180 tabs 09/07/22 [Rx Last Taken Unknown] multivitamin 1 tab PO DAILY SUPPLEMENT #90 tabs 09/07/22 [Rx Last Taken Unknown] oxybutynin chloride 15 mg tablet,extended release 24 hr 15 mg PO BID bladder #180 tabs 09/07/22 [Rx Last Taken Unknown] sertraline 100 mg tablet (Zoloft) 100 mg PO DAILY anxiety #90 tabs 09/07/22 [Rx Last Taken Unknown] atorvastatin 20 mg tablet (Lipitor) 20 mg PO DAILY Check with primary doctor 09/09/22 [History Last Taken Unknown] diltiazem HCl 240 mg capsule,extended release 24 hr (Cardizem CD) 240 mg PO DAILY heart 09/09/22 [History Last Taken Unknown] furosemide 20 mg tablet 20 mg PO DAILY #30 tabs 09/15/22 [Rx Last Taken Unknown] metoprolol succinate 100 mg tablet,extended release 24 hr 100 mg PO BID Check with primary doctor #60 tabs 09/29/22 [Rx Last Taken Unknown] WOUND CARE #1 ea 10/06/22 [Rx Last Taken Unknown] apixaban 5 mg tablet 5 mg PO BID blood thinner #180 tabs 10/15/22 [Rx Last Taken Unknown] nystatin 100,000 unit/gram topical powder 1 applic topical BID PRN Rash 10/26/22 [History Last Taken Unknown] Allergy/AdvReac Type Severity Reaction Status Date / Time fosinopril [From Monopril] Allergy Unknown Other Verified 11/01/22 09:58 pioglitazone AdvReac Other Verified 11/01/22 09:58 Family History Father Diabetes High cholesterol Heart disease Melanoma Hypertension Mother Heart disease Brother AIDS (acquired immune deficiency syndrome) Surgical History History of amputation of finger of right hand History of back surgery History of back surgery History of carpal tunnel release History of carpal tunnel release History of hand surgery History of hysterectomy History of hysterectomy History of left elbow replacement History of left elbow replacement History of surgical amputation of finger of right hand Hx of colonoscopy S/P hysterectomy S/P ORIF (open reduction internal fixation) fracture Status post surgical amputation of finger of right hand Social History household members: none Smoking Status: Never smoker how long ago did patient quit smokin years ago alcohol intake: current alcohol intake frequency: holidays/special occasions only substance use type: does not use what type of physical activity do you participate in: other details: aquasize Vital Signs Vital Signs Vital Signs: 11/02/22 11:40 Temperature 97.4 F L Temperature Source Temporal Pulse Rate 69 Blood Pressure 142/67 H Blood Pressure Mean 92 Blood Pressure Source Monitor Weight Weight: 185 lb Body Mass Index (BMI) 34.9 Physical Exam Const alert, oriented x3, no apparent distress and well nourished Constitutional Narrative: The patient is mildly obese. General Appearance: cooperative, comfortable and well developed Orientation / Consciousness: awake, oriented to person, oriented to place and oriented to time HEENT normocephalic and head/scalp atraumatic Head and Scalp: normal to inspection, normocephalic and atraumatic External Ear: external ears normal Eyes PERRL and EOMs intact bilaterally General Eye: normal appearance of both eyes Resp normal respiratory effort, normal air movement, no retractions and no use of accessory muscles Effort and Inspection: able to speak in complete sentences Extremity no calf tenderness General Extremity: Negative for clubbing or cyanosis Skin Wound Narrative: Mild swelling and edema are noted in the patient's lower extremities bilaterally. Multiple small, eschars in a few ulcerations are noted in both lower extremities, between knee and ankle. Dimensions are documented elsewhere. Pedal pulses are strong by Doppler signal assessment. The location and dimensions of the ulcerations are documented elsewhere. There is no sign of infection or cellulitis. Neuro oriented x3, CN's II-XII intact bilaterally and moves all extremities Sensorium / Orientation: awake, alert, oriented to person, oriented to place and oriented to time Psych Appearance: grossly normal and appropriate Attitude: calm Activity / Motor Behavior: appropriate eye contact Speech: normal speech Mood & Affect: euthymic mood Thought Process: normal thought process Thought Content: normal thought content Attention / Concentration: attention grossly intact Debridement Note Debridement Note No debridement was completed: No debridement was completed today Post-Debridement Measurements and Additional Note: Post-Debridement Measurements/Treatment WC - Nurse 1 - General Ulcer Assessment Start: 10/26/22 09:11 Freq: Status: Active Protocol: .TAMARA Activity Type Activity Date Activity User E-sign Co-sign Detail Recorded Client Recorded Date Recorded By Document 10/26/22 09:11 [facility] [id number] 10/26/22 09:22 [facility] Document 11/02/22 11:40 [place] [id number] 11/02/22 11:48 NH 10/26/22 11/02/22 09:11 11:40 - Today's Visit Information Type of service Initial Visit Follow-up Visit (Physician/HOGSHEAD INSPECTOR ) Arrival Mode Ambulatory, Ambulatory, Walker Walker Transfer Assistance None Patient Identification Verified (Name & Yes ) Patient Requires Transmission-Based No Precautions Height and Weight Height 5 ft 1 in Weight 185 lb Weight in Pounds 185.0 lbs Body Mass Index (BMI) 34.9 34.9 BMI Classification Obese Obese BSA - Florina 1.83 Vital Signs Temperature (97.8 F-99.1 F) 96.7 F L 97.4 F L Temperature Source Temporal Temporal Pulse Rate (60-100) 65 69 Pulse Location Monitor Monitor Respiratory Rate (12-18) 16 Respiratory rate source Observation Oxygen Delivery Method Room Air Blood Pressure (90/60-120/80) 120/48 L 142/67 H Blood Pressure Mean 72 92 Source Monitor Monitor Position Sitting Blood Pressure Location Left Arm History Since Last Visit- (Skip if this is Patient's initial visit) Have you changed medications since your No last visit? Any new allergies or adverse reactions No Had a fall/change in ADL's that may No increase risk of falls Signs or symptoms of abuse and/or No neglect since last visit Have you been in the hospital since your No last visit? Has dressing in place as prescribed Yes Has compression in place as prescribed N/A Has offloadiing in place as prescribed N/A Experienced any changes in pain level or No management Left Footwear Regular Shoe Regular Shoe Right Footwear Regular Shoe Regular Shoe Pain Scale: 0-10 Numeric Is Patient Pain Free? Yes Yes Lower Extremity Assessment/ Foot Assessment/ Toe Nail Assessment Right -Posterior Tibial Doppler Multiphasic -Dorsalis Pedis Doppler Multiphasic -Extremity Color Pale -Hair Growth on Legs Yes -Hair Growth on Toes No -Temperature of Extremity Cool -Other Deformity No -Prior Foot Ulcer No -Charcot Joint No -Prior Amputation No -Thick Yes -Discolored Yes -Deformed No -Improper Length & Hygeine No Left -Posterior Tibial Doppler Monophasic -Dorsalis Pedis Doppler Monophasic -Extremity Color Pale -Hair Growth on Legs Yes -Hair Growth on Toes Yes -Temperature of Extremity Cool -Thick Yes -Discolored Yes -Deformed No -Improper Length & Hygeine No Communication Assessment Preferred language Japanese Rn Case Management Required No Able to Read Yes Able to Write Yes Communication Tools None Right Hearing Abillity Normal Left Hearing Abillity Normal Teaching Assessment Preferences Verbal,Written, Audio/Visual, Demonstration Barriers to Learning None Readiness To Learn Excellent Willingness to Engage in Self Management High Activies Readiness to Engage in Self Management High Activities Anxiety Level Calm Cooperation Cooperative Perception Coherent Interest in Health Problem Asks Questions Education Importance Acknowledges Need Does Patient Smoke tobacco or other No substances Smoking Status Never smoker Is Patient Diabetic Yes WC - Nurse 1 - General Ulcer Measurement Start: 10/26/22 09:11 Freq: Status: Active Protocol: Activity Type Activity Date Activity User E-sign Co-sign Detail Recorded Client Recorded Date Recorded By Document 10/26/22 09:11 [facility] [id number] 10/26/22 09:22 BMF Edit Result 10/26/22 09:11 BMF (1) [id number] 10/26/22 09:33 [facility] Document 11/02/22 11:40 AK [id number] 11/02/22 11:48 AK (1) #5- L GR TOE - Combined with other wound => No - Current Size (cm) - Length => 0.5 - Current Size (cm) - Width => 0.5 - Current Size (cm) - Depth => 0.3 - Total Square Cm => 0.25 - Date of Last Picture (Recall this => 10/26/22 field) - Photo Taken => Yes - Epithelialization => None Present - Tunneling => No - Undermining/Tunneling => No - Circular Undermining => No - Exudate Amt => None Present - Wound Margin => Distinct, Outline => Attached - Granulation Amt => Large (67-100%) - Granulation Quality => Red - Slough/Fibrin => Yes - Necrotic Tissue Type => Adherent Slough - Texture (Jessica-wound Skin Appearance) => Callus,Scarring - Moisture (Jessica-wound Skin Appearance) => Assessed,Dry/Scaly - Color (Jessica-wound Skin Appearance) => Assessed - Temperature (Jessica-wound Skin => No Abnormality (Pt Appearance) => Warm) - Tenderness on Palpation (Jessica-wound => No Skin Appearance) - Ulcer Cleansing => Rinsed/Irrigated => with Saline - Foul Odor after Cleansing => No - Anesthetic Used => 5% Lidocaine Gel 10/26/22 11/02/22 09:11 11:40 Wound Center Nurse 1 #5- L GR TOE -Combined with other wound No No -Current Size (cm) - Length 0.5 0.2 -Current Size (cm) - Width 0.5 0.8 -Current Size (cm) - Depth 0.3 -Total Square Cm 0.25 0.16 -Date of Last Picture (Recall this 10/26/22 field) -Photo Taken Yes No -Epithelialization None Present -Tunneling No No -Undermining/Tunneling No No -Circular Undermining No No -Change in Wound Grade/Stage No -Exudate Amt None Present Small -Exudate Type Serosanguineous -Wound Margin Distinct, Distinct, Outline Outline Attached Attached -Granulation Amt Large (67-100%) Small (1-33%) -Granulation Quality Red N/A -Slough/Fibrin Yes Yes -Necrosis Amt Small (1-33%) -Necrotic Tissue Type Adherent Slough Adherent Slough -Structure Exposed N/A -Texture (Jessica-wound Skin Appearance) Callus,Scarring No Abnormality, Assessed -Moisture (Jessica-wound Skin Appearance) Assessed,Dry/ No Abnormality, Scaly Assessed -Color (Jessica-wound Skin Appearance) Assessed No Abnormality, Assessed -Temperature (Jessica-wound Skin No Abnormality No Abnormality Appearance) (Pt Warm) (Pt Warm) -Tenderness on Palpation (Jessica-wound No No Skin Appearance) -Ulcer Cleansing Rinsed/ Rinsed/ Irrigated with Irrigated with Saline Saline -Foul Odor after Cleansing No No -Anesthetic Used 5% Lidocaine 4% Lidocaine Gel Solution #4- L MED LE CLUSTER -Combined with other wound No No -Current Size (cm) - Length 14.5 -Current Size (cm) - Width 7 -Current Size (cm) - Depth 0.1 -Total Square Cm 101.5 -Date of Last Picture (Recall this 10/26/22 field) -Photo Taken Yes -Epithelialization None Present -Tunneling No -Undermining/Tunneling No -Circular Undermining No -Exudate Amt Small -Exudate Type Sanguineous -Wound Margin Distinct, Outline Attached -Granulation Amt Medium (34-66%) -Granulation Quality Red -Slough/Fibrin Yes -Necrosis Amt Medium (34-66%) -Necrotic Tissue Type Adherent Slough -Texture (Jessica-wound Skin Appearance) Assessed, Scarring -Moisture (Jessica-wound Skin Appearance) Assessed -Color (Jessica-wound Skin Appearance) Assessed -Temperature (Jessica-wound Skin No Abnormality Appearance) (Pt Warm) -Tenderness on Palpation (Jessica-wound No Skin Appearance) -Ulcer Cleansing Rinsed/ Irrigated with Saline -Foul Odor after Cleansing No -Anesthetic Used 4% Lidocaine Solution #3- L LAT LE CLUSTER -Combined with other wound No -Current Size (cm) - Length 5.4 -Current Size (cm) - Width 2 -Current Size (cm) - Depth 0.1 -Total Square Cm 10.8 -Date of Last Picture (Recall this 10/26/22 field) -Photo Taken Yes -Epithelialization None Present -Tunneling No -Undermining/Tunneling No -Circular Undermining No -Exudate Amt Small -Exudate Type Sanguineous -Wound Margin Distinct, Outline Attached -Granulation Amt Medium (34-66%) -Granulation Quality Red -Slough/Fibrin Yes -Necrosis Amt Medium (34-66%) -Necrotic Tissue Type Eschar -Texture (Jessica-wound Skin Appearance) Assessed, Scarring -Moisture (Jessica-wound Skin Appearance) Assessed -Color (Jessica-wound Skin Appearance) Assessed -Temperature (Jessica-wound Skin No Abnormality Appearance) (Pt Warm) -Tenderness on Palpation (Jessica-wound No Skin Appearance) -Ulcer Cleansing Rinsed/ Irrigated with Saline -Foul Odor after Cleansing No -Anesthetic Used 4% Lidocaine Solution #2- RLE CLUSTER -Combined with other wound No -Current Size (cm) - Length 14.5 -Current Size (cm) - Width 9 -Current Size (cm) - Depth 0.1 -Total Square Cm 130.5 -Date of Last Picture (Recall this 10/26/22 field) -Photo Taken Yes -Epithelialization None Present -Tunneling No -Undermining/Tunneling No -Circular Undermining No -Exudate Amt Small -Exudate Type Sanguineous -Wound Margin Distinct, Outline Attached -Granulation Amt Medium (34-66%) -Granulation Quality Red -Slough/Fibrin Yes -Necrosis Amt Medium (34-66%) -Necrotic Tissue Type Eschar -Texture (Jessica-wound Skin Appearance) Assessed, Scarring -Moisture (Jessica-wound Skin Appearance) Assessed -Color (Jessica-wound Skin Appearance) Assessed -Temperature (Jessica-wound Skin No Abnormality Appearance) (Pt Warm) -Tenderness on Palpation (Jessica-wound No Skin Appearance) -Ulcer Cleansing Rinsed/ Irrigated with Saline -Foul Odor after Cleansing No -Anesthetic Used 4% Lidocaine Solution -Wound Comment(s) SOME ARE SCABBED. PT PICKS/SCRATCHES Lower Limb Edema Present Yes Right Calf (cm) 36.2 39.5 Right Ankle (cm) 23 20.5 Left Calf (cm) 37.5 40 Left Ankle (cm) 23.2 25 WC - Nurse 2 - General Ulcer CM Notes Start: 10/26/22 09:11 Freq: Status: Active Protocol: Activity Type Activity Date Activity User E-sign Co-sign Detail Recorded Client Recorded Date Recorded By Document 10/26/22 11:22 PL [id number] 10/26/22 11:26 YA 10/26/22 11:22 Wound Center Nurse 2 #5- L GR TOE -Time 09:39 -Correct Patient Yes -Correct Side, Site, Position Yes -Correct Procedure Yes -Procedure Performed Yes -Type of Procedure Debridement -Clinical Debridement Subcutaneous -Tissue Removed Subcutaneous -Post Debridement (cm) - Length 0.5 -Post Debridement (cm) - Width 0.5 -Post Debridement (cm) - Depth 0.3 -Total Square (Post) (cm) 0.25 -Area of Debridement (cm) - Length 0.5 -Area of Debridement (cm) - Width 0.5 -Total Square (Area) (cm) 0.25 -Tunneling No -Undermining/Tunneling No -Circular Undermining No -Wound/Ulcer Outcome Not Healed -Ulcer Cleansing Rinsed/ Irrigated with Saline -Foul Odor after Cleansing No -Bioengineered Tissue No -Bleeding Controlled with Pressure -Treatment Response Procedure Tolerated Well -Debridement - Subq, 1st 20sq cm No #4- L MED LE CLUSTER -Time 09:39 -Correct Patient Yes -Correct Side, Site, Position Yes -Correct Procedure Yes -Procedure Performed Yes -Type of Procedure Debridement -Clinical Debridement Subcutaneous -Tissue Removed Subcutaneous -Post Debridement (cm) - Length 14.5 -Post Debridement (cm) - Width 7.0 -Post Debridement (cm) - Depth 0.1 -Total Square (Post) (cm) 101.50 -Area of Debridement (cm) - Length 14.5 -Area of Debridement (cm) - Width 7.0 -Total Square (Area) (cm) 101.50 -Tunneling No -Undermining/Tunneling No -Circular Undermining No -Wound/Ulcer Outcome Not Healed -Ulcer Cleansing Rinsed/ Irrigated with Saline -Foul Odor after Cleansing No -Bioengineered Tissue No -Bleeding Controlled with Pressure -Treatment Response Procedure Tolerated Well -Debridement - Subq, 1st 20sq cm No #3- L LAT LE CLUSTER -Time 09:39 -Correct Patient Yes -Correct Side, Site, Position Yes -Correct Procedure Yes -Procedure Performed Yes -Type of Procedure Debridement -Clinical Debridement Subcutaneous -Tissue Removed Subcutaneous -Post Debridement (cm) - Length 5.4 -Post Debridement (cm) - Width 2.0 -Post Debridement (cm) - Depth 0.1 -Total Square (Post) (cm) 10.80 -Area of Debridement (cm) - Length 5.4 -Area of Debridement (cm) - Width 2.0 -Total Square (Area) (cm) 10.80 -Tunneling No -Undermining/Tunneling No -Circular Undermining No -Wound/Ulcer Outcome Not Healed -Ulcer Cleansing Rinsed/ Irrigated with Saline -Foul Odor after Cleansing No -Bioengineered Tissue No -Bleeding Controlled with Pressure -Treatment Response Procedure Tolerated Well -Debridement - Subq, 1st 20sq cm No #2- RLE CLUSTER -Time 09:39 -Correct Patient Yes -Correct Side, Site, Position Yes -Correct Procedure Yes -Procedure Performed Yes -Type of Procedure Debridement -Clinical Debridement Subcutaneous -Tissue Removed Subcutaneous -Post Debridement (cm) - Length 14.5 -Post Debridement (cm) - Width 9.0 -Post Debridement (cm) - Depth 0.1 -Total Square (Post) (cm) 130.50 -Area of Debridement (cm) - Length 14.5 -Area of Debridement (cm) - Width 9.0 -Total Square (Area) (cm) 130.50 -Tunneling No -Undermining/Tunneling No -Circular Undermining No -Wound/Ulcer Outcome Not Healed -Ulcer Cleansing Rinsed/ Irrigated with Saline -Foul Odor after Cleansing No -Bioengineered Tissue No -Bleeding Controlled with Pressure -Treatment Response Procedure Tolerated Well -Debridement - Subq, 1st 20sq cm Yes -Debridement, SubQ, ea addt'l 20sq cm 12 or part thereof Pain Scale: 0-10 Numeric Is Patient Pain Free? Yes WC - Nurse 3 - General Ulcer D/C NN Start: 10/26/22 09:11 Freq: Status: Active Protocol: Activity Type Activity Date Activity User E-sign Co-sign Detail Recorded Client Recorded Date Recorded By Document 10/26/22 09:51 MW [id number] 10/26/22 09:54 MW Document 11/02/22 11:40 AK [id number] 06/20/23 11:48 AK 10/26/22 11/02/22 09:51 11:40 Wound Care Center Nurse 3 #5- L GR TOE -Ulcer Cleansing Rinsed/ Rinsed/ Irrigated with Irrigated with Saline Saline -Foul Odor after Cleansing No No -Negative Pressure Wound Therapy N/A N/A -Primary Dressing Applied Promogran Promogran -Primary Dressing Covered/Secured with Dry Gauze Dry Gauze, Secured with Tape -Promogran 1 1 #4- L MED LE CLUSTER -Ulcer Cleansing Rinsed/ Irrigated with Saline -Foul Odor after Cleansing No -Negative Pressure Wound Therapy N/A -Other Dressing promogran -Primary Dressing Covered/Secured with Dry Gauze #3- L LAT LE CLUSTER -Ulcer Cleansing Rinsed/ Irrigated with Saline -Foul Odor after Cleansing No -Negative Pressure Wound Therapy N/A -Other Dressing promogran -Primary Dressing Covered/Secured with Dry Gauze #2- RLE CLUSTER -Ulcer Cleansing Rinsed/ Irrigated with Saline -Foul Odor after Cleansing No -Negative Pressure Wound Therapy N/A -Other Dressing promogran -Primary Dressing Covered/Secured with Dry Gauze Bilateral LE -Lotion applied to leg before No Yes compression wrap -Multi-Layered Wrap Application Multi-Layer Unna Boot - Comp - Bilat ($ Bilateral ($) ) -Stockings No Treatment Response Procedure Tolerated Well Vital Signs Temperature (97.8 F-99.1 F) 97.4 F L Temperature Source Temporal Pulse Rate (60-100) 69 Pulse Location Monitor Blood Pressure (90/60-120/80) 142/67 H Blood Pressure Mean 92 Source Monitor Pain Scale: 0-10 Numeric Is Patient Pain Free? Yes Yes Teaching: Wound Center Dressing Your Wound -Person Taught Patient -Teaching Method Discussion -Response to teaching Verbalize understanding WC - Visit Discharge Discharge Condition Stable Stable Ambulatory Status Ambulatory, Walker Transportation [facility] Private Auto transportation Medication Reconcilliation completed & No Yes provided to patient/care provider Clinical Summary of Care Provided Yes Yes Notes: Dressing and wraps applied per Jagdeep Bellamy LPN. Assessment/Plan Assessment/Plan (1) Bilateral leg ulcer: CODE(S): L97.919 - Non-pressure chronic ulcer of unspecified part of right lower leg with unspecified severity; L97.929 - Non-pressure chronic ulcer of unspecified part of left lower leg with unspecified severity QUALIFIERS: Non-pressure ulcer stage: with fat layer exposed Qualified Code(s): L97.912 - Non-pressure chronic ulcer of unspecified part of right lower leg with fat layer exposed; L97.922 - Non-pressure chronic ulcer of unspecified part of left lower leg with fat layer exposed (2) CKD (chronic kidney disease): CODE(S): N18.9 - Chronic kidney disease, unspecified (3) Acute on chronic heart failure: CODE(S): I50.9 - Heart failure, unspecified (4) Paroxysmal A-fib: CODE(S): I48.0 - Paroxysmal atrial fibrillation (5) Chronic anticoagulation: CODE(S): Z79.01 - buttermaker continuous churn (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 (6) Hyperlipidemia: CODE(S): E78.5 - Hyperlipidemia, unspecified (7) Essential hypertension: CODE(S): I10 - Essential (primary) hypertension (8) Non-rheumatic mitral valve stenosis: CODE(S): I34.2 - Nonrheumatic mitral (valve) stenosis (9) Nonrheumatic aortic (valve) stenosis: CODE(S): I35.0 - Nonrheumatic aortic (valve) stenosis (10) History of cerebrovascular accident: CODE(S): Z86.73 - Personal history of transient ischemic attack (TIA), and cerebral infarction without residual deficits (11) Pulmonary hypertension: CODE(S): I27.20 - Pulmonary hypertension, unspecified (12) Renal insufficiency: CODE(S): N28.9 - Disorder of kidney and ureter, unspecified (13) Type II diabetes mellitus: CODE(S): E11.9 - Type 2 diabetes mellitus without complications (14) Obstructive sleep apnea: CODE(S): G47.33 - Obstructive sleep apnea (adult) (pediatric) (15) Urinary incontinence, overflow: CODE(S): N39.490 - Overflow incontinence (16) Hypertriglyceridemia: CODE(S): E78.1 - Pure hyperglyceridemia (17) Failure to thrive: (18) Venous insufficiency: CODE(S): I87.2 - Venous insufficiency (chronic) (peripheral) (19) Osteoporosis: CODE(S): M81.0 - Age-related osteoporosis without current pathological fracture QUALIFIERS: Osteoporosis type: age-related Presence of current pathological fracture: without current pathological fracture Qualified Code(s): M81.0 - Age-related osteoporosis without current pathological fracture (20) Debility: CODE(S): R53.81 - Other malaise (21) History of back surgery: CODE(S): Z98.890 - Other specified postprocedural states (22) History of carpal tunnel release: CODE(S): Z98.890 - Other specified postprocedural states (23) History of hysterectomy: CODE(S): Z90.710 - Acquired absence of both cervix and uterus (24) History of left elbow replacement: CODE(S): Z96.622 - Presence of left artificial elbow joint (25) History of amputation of finger of right hand: CODE(S): Z89.021 - Acquired absence of right finger(s) PLAN: Plan This is a 72-year-old diabetic female with multiple pre-existing medical problems, which are listed herein. She presented with multiple small, superficial ulcerations and eschars in her lower extremities bilaterally. 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 Picking and scratching at her ulcerations has been strongly discouraged. The patient has been urged to elevate her lower extremities is much as possible. Elevation is to be to heart level, or higher. She is to continue sleeping on a flat mattress at night. Elevation is to occur during daytime hours as well. Prolonged idle sitting has been discouraged. Activity has been encouraged. Bacterial cultures of the patient's ulcerations were performed last week, and were positive for MRSA. Patient has been started on Levaquin 500 mg p.o. daily for 10 days. She has been treated for MRSA infection in the recent past as well. Therefore, we have prescribed mupirocin ointment 2% for intranasal use. It is to be applied intranasally twice daily for 5 days. In addition, the patient has been instructed to obtain Hibiclens 4% soap, and to shower daily using Hibiclens for a total of 7 days. We are to cont inue the use of Promogran topically to each of the superficial ulcerations in the lower extremities. Within the last week, many of the eschars have sloughed, revealing healing to have occurred beneath. Only a very few small ulcerations remain, which are superficial in nature. So as to help prevent scratching and picking on the part of the patient, we are to continue the use of 3M 2 layer compression wraps, which will be changed twice weekly. The patient has home health nursing care for assistance with 3M 2 layer compression wraps. Promogran will be used topically at the site of the few remaining small, superficial ulcerations. The patient is to return in 1 week for reevaluation. She has been encouraged to follow-up with her marketing information coordinator, Dr. Wayne Spencer, relative to an ulceration on her right great toe. Total time: 28 minutes
[2022-11-09 09:24] VITALS: BP 167/71; PULSE 81; RESP 16; BMI 34.9
--- NOTE | 2022-11-09 14:25 | HP.PCM_ITS ---
History of Present Illness Date of Service: 11/09/22 Chief Complaint: Multiple, small superficial ulcerations in the lower extr emities bilaterally History of Wound: This 72-year-old white female who presented with bilateral lower extremity ulcerations. They are small in size, but multiple in number. They have been present for a lengthy period of time. 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 The patient has been using silver cell and Alberto wraps. The patient also experiences swelling and edema in her lower extremities. She sleeps in a bed at night. The patient has recently been hospitalized at [facility] following amputation of her distal right third finger, follow ing which she developed a MRSA infection/osteomyelitis with positive MRSA blood cultures. She has been under the care of Dr. Kiran Wolff, plastic surgeon, in this regard. Her recent MRSA infection is said to have been her first and only history of MRSA infections. She underwent surgery on 07/12/22 for surgical preparation right long finger amputation stump ulcer with incision and drainage and excisional debridement MRSA abscess and partial ostectomy middle phalanx for osteomyelitis. Operative tissue cultures positive for Enterobacter cloacae complex and MRSA. Operative bone cultures positive for MRSA and MRSE. She was discharged home on 07/15/22 with a PICC line and IV Vancomycin and oral Cipro. She was seen by ID while hospitalized and was to follow up ID post- discharge. [facility] Medical History Abnormal mammogram of right breast Abscess of right middle finger Acute kidney injury Acute on chronic heart failure Alcohol use Anemia Anxiety Anxiety and depression Arthritis Atrial fib/flutter, transient Atrial fibrillation Back pain Bacteremia Bilateral leg ulcer Breast lump Burn injury of skin of finger Cardiology follow-up encounter Chronic anticoagulation Chronic back pain Chronic cough CKD (chronic kidney disease) COVID-19 vaccine series completed CPAP (continuous positive airway pressure) dependence CVA (cerebral vascular accident) Depression Depression with anxiety Diabetes mellitus Dietary restriction DKA (diabetic ketoacidoses) Elevated brain natriuretic peptide (BNP) level Essential hypertension Finger infection Flu vaccine need Former smoker Health care maintenance History of cerebrovascular accident History of echocardiogram History of edema History of stress test History of UTI Hyperlipidemia Hypertension Intertrigo Irregular heartbeat Kidney disease 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 (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 MRSA infection 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 without evidence of necrosis Non-rheumatic mitral valve stenosis Nonrheumatic aortic (valve) stenosis Osteoarthritis Osteomyelitis of finger of right hand Osteoporosis Overactive bladder Pancreatitis Paroxysmal A-fib Paroxysmal atrial fibrillation Paroxysmal atrial fibrillation with RVR Post-menopausal Preoperative evaluation to rule out surgical contraindication Stage 3b chronic kidney disease (CKD) Subtherapeutic international normalized ratio (INR) Tachycardia Urinary incontinence, overflow Venous insufficiency Vision problems Walker as ambulation aid Weakness Home Medications acetaminophen 325 mg capsule 650 mg PO PRN PRN Pain 12/02/21 [History Last Taken 07/08/22] amlodipine 10 mg tablet 10 mg PO DAILY BP #90 tabs 09/07/22 [Rx Last Taken Unknown] ascorbic acid (vitamin C) 500 mg tablet (Vitamin C) 500 mg PO DAILY vitamin #90 tabs 09/07/22 [Rx Last Taken Unknown] aspirin 81 mg chewable tablet 81 mg PO BREAKFAST Heart #90 tabs 09/07/22 [Rx Last Taken Unknown] cholecalciferol (vitamin D3) 50 mcg (2,000 unit) capsule 50 mcg PO DAILY vitamin #90 caps 09/07/22 [Rx Last Taken Unknown] ferrous sulfate 325 mg (65 mg iron) tablet 325 mg PO DAILY Supplement #90 tabs 09/07/22 [Rx Last Taken Unknown] glimepiride 4 mg tablet 4 mg PO BID dm 3 months #180 tabs 09/07/22 [Rx Last Taken Unknown] metformin 1,000 mg tablet 1,000 mg PO BID DM #180 tabs 09/07/22 [Rx Last Taken Unknown] multivitamin 1 tab PO DAILY SUPPLEMENT #90 tabs 09/07/22 [Rx Last Taken Unknown] oxybutynin chloride 15 mg tablet,extended release 24 hr 15 mg PO BID bladder #180 tabs 09/07/22 [Rx Last Taken Unknown] sertraline 100 mg tablet (Zoloft) 100 mg PO DAILY anxiety #90 tabs 09/07/22 [Rx Last Taken Unknown] atorvastatin 20 mg tablet (Lipitor) 20 mg PO DAILY Check with primary doctor 09/09/22 [History Last Taken Unknown] diltiazem HCl 240 mg capsule,extended release 24 hr (Cardizem CD) 240 mg PO DAILY heart 09/09/22 [History Last Taken Unknown] furosemide 20 mg tablet 20 mg PO DAILY #30 tabs 09/15/22 [Rx Last Taken Unknown] metoprolol succinate 100 mg tablet,extended release 24 hr 100 mg PO BID Check with primary doctor #60 tabs 09/29/22 [Rx Last Taken Unknown] WOUND CARE #1 ea 10/06/22 [Rx Last Taken Unknown] apixaban 5 mg tablet 5 mg PO BID blood thinner #180 tabs 10/15/22 [Rx Last Taken Unknown] nystatin 100,000 unit/gram topical powder 1 applic topical BID PRN Rash 10/26/22 [History Last Taken Unknown] Allergy/AdvReac Type Severity Reaction Status Date / Time fosinopril [From Monopril] Allergy Unknown Other Verified 11/01/22 09:58 pioglitazone AdvReac Other Verified 11/01/22 09:58 Family History Father Diabetes High cholesterol Heart disease Melanoma Hypertension Mother Heart disease Brother AIDS (acquired immune deficiency syndrome) Surgical History History of amputation of finger of right hand History of back surgery History of back surgery History of carpal tunnel release History of carpal tunnel release History of hand surgery History of hysterectomy History of hysterectomy History of left elbow replacement History of left elbow replacement History of surgical amputation of finger of right hand Hx of colonoscopy S/P hysterectomy S/P ORIF (open reduction internal fixation) fracture Status post surgical amputation of finger of right hand Social History household members: none Smoking Status: Never smoker how long ago did patient quit smokin years ago alcohol intake: current alcohol intake frequency: holidays/special occasions only substance use type: does not use what type of physical activity do you participate in: other details: aquasize Vital Signs Vital Signs Vital Signs: 11/09/22 09:24 Pulse Rate 81 Respiratory Rate 16 Blood Pressure 167/71 H Blood Pressure Mean 103 Blood Pressure Source Monitor Blood Pressure Position Sitting Blood Pressure Location Left Arm Oxygen Delivery Method Room Air Weight Weight: 185 lb Body Mass Index (BMI) 34.9 Physical Exam Const alert, oriented x3, no apparent distress and well nourished Constitutional Narrative: The patient is mildly obese. General Appearance: cooperative, comfortable and well developed Orientation / Consciousness: awake, oriented to person, oriented to place and oriented to time HEENT normocephalic and head/scalp atraumatic Head and Scalp: normal to inspection, normocephalic and atraumatic External Ear: external ears normal Eyes PERRL and EOMs intact bilaterally General Eye: normal appearance of both eyes Resp normal respiratory effort, normal air movement, no retractions and no use of accessory muscles Effort and Inspection: able to speak in complete sentences Extremity no calf tenderness General Extremity: Negative for clubbing or cyanosis Skin Wound Narrative: Minimal swelling and edema are noted in the patient's lower extremities bilaterally. The multiple small wounds and eschars in the patient's lower extremities are now all essentially resolved, but for 1 very small open ulceration on the right pretibial area. Dimensions are documented elsewhere. There is no sign of infection or cellulitis. Pedal pulses are strong by Doppler signal assessment. There has been significant improvement within the last several weeks. Neuro oriented x3, CN's II-XII intact bilaterally and moves all extremities Sensorium / Orientation: awake, alert, oriented to person, oriented to place and oriented to time Psych Appearance: grossly normal and appropriate Attitude: calm Activity / Motor Behavior: appropriate eye contact Speech: normal speech Mood & Affect: euthymic mood Thought Process: normal thought process Thought Content: normal thought content Attention / Concentration: attention grossly intact Debridement Note Debridement Note Wound debrided: Right pretibial ulceration Laterality: Right Type of Debridement: Excisional debridement Anesthesia Used: 5% Lidocaine Gel Depth: Down to and including healthy tissue and in the subcutaneous layer Percentage of wound debrided: 100 Instrument Used: 5mm curette Severity: Fat Layer Exposed Bleeding Controlled with: Compression and gauze Patient tolerated procedure: Patient tolerated procedure well Post-Debridement Measurements and Additional Note: Post-Debridement Measurements/Treatment - Nurse 1 - General Ulcer Assessment Start: 10/26/22 09:11 Freq: Status: Active Protocol: [email or web address] Activity Type Activity Date Activity User E-sign Co-sign Detail Recorded Client Recorded Date Recorded By Document 10/26/22 09:11 [facility] [id number] 10/26/22 09:22 [facility] Document 11/02/22 11:40 [place] [id number] 11/02/22 11:48 [place] Document 11/09/22 09:24 [facility] [id number] 11/09/22 09:28 [facility] 10/26/22 11/02/22 11/09/22 09:11 11:40 09:24 WC - Today's Visit Information Type of service Initial Visit Follow-up Visit Follow-up Visit (Physician/ASSISTANT DEPARTMENT MANAGER (Physician/ASSISTANT DEPARTMENT MANAGER ) ) Arrival Mode Ambulatory, Ambulatory, Ambulatory, Walker Walker Walker Transfer Assistance None None Patient Identification Verified (Name & Yes Yes ) Patient Requires Transmission-Based No No Precautions Height and Weight Height 5 ft 1 in Weight 185 lb Weight in Pounds 185.0 lbs Body Mass Index (BMI) 34.9 34.9 34.9 BMI Classification Obese Obese Obese BSA - Florina 1.83 Vital Signs Temperature (97.8 F-99.1 F) 96.7 F L 97.4 F L Temperature Source Temporal Temporal Pulse Rate (60-100) 65 69 81 Pulse Location Monitor Monitor Monitor Respiratory Rate (12-18) 16 16 Respiratory rate source Observation Observation Oxygen Delivery Method Room Air Room Air Blood Pressure (90/60-120/80) 120/48 L 142/67 H 167/71 H Blood Pressure Mean 72 92 103 Source Monitor Monitor Monitor Position Sitting Sitting Blood Pressure Location Left Arm Left Arm History Since Last Visit- (Skip if this is Patient's initial visit) Have you changed medications since your No No last visit? Any new allergies or adverse reactions No No Had a fall/change in ADL's that may No No increase risk of falls Signs or symptoms of abuse and/or No No neglect since last visit Have you been in the hospital since your No No last visit? Has dressing in place as prescribed Yes No Has compression in place as prescribed N/A No Has offloadiing in place as prescribed N/A N/A Experienced any changes in pain level or No No management Left Footwear Regular Shoe Regular Shoe Regular Shoe Right Footwear Regular Shoe Regular Shoe Regular Shoe Pain Scale: 0-10 Numeric Is Patient Pain Free? Yes Yes Yes Lower Extremity Assessment/ Foot Assessment/ Toe Nail Assessment Right -Posterior Tibial Doppler Multiphasic -Dorsalis Pedis Doppler Multiphasic -Extremity Color Pale -Hair Growth on Legs Yes -Hair Growth on Toes No -Temperature of Extremity Cool -Other Deformity No -Prior Foot Ulcer No -Charcot Joint No -Prior Amputation No -Thick Yes -Discolored Yes -Deformed No -Improper Length & Hygeine No Left -Posterior Tibial Doppler Monophasic -Dorsalis Pedis Doppler Monophasic -Extremity Color Pale -Hair Growth on Legs Yes -Hair Growth on Toes Yes -Temperature of Extremity Cool -Thick Yes -Discolored Yes -Deformed No -Improper Length & Hygeine No Communication Assessment Preferred language Slovak Carriage Setter Required No Able to Read Yes Able to Write Yes Communication Tools None Right Hearing Abillity Normal Left Hearing Abillity Normal Teaching Assessment Preferences Verbal,Written, Audio/Visual, Demonstration Barriers to Learning None Readiness To Learn Excellent Willingness to Engage in Self Management High Activies Readiness to Engage in Self Management High Activities Anxiety Level Calm Cooperation Cooperative Perception Coherent Interest in Health Problem Asks Questions Education Importance Acknowledges Need Does Patient Smoke tobacco or other No substances Smoking Status Never smoker Is Patient Diabetic Yes WC - Nurse 1 - General Ulcer Measurement Start: 10/26/22 09:11 Freq: Status: Active Protocol: Activity Type Activity Date Activity User E-sign Co-sign Detail Recorded Client Recorded Date Recorded By Document 10/26/22 09:11 BMF [id number] 10/26/22 09:22 BMF Edit Result 10/26/22 09:11 BMF (1) [id number] 10/26/22 09:33 BMF Document 11/02/22 11:40 AK [id number] 11/02/22 11:48 AK Document 11/09/22 09:24 BMF [id number] 11/09/22 09:28 BMF (1) #5- L GR TOE - Combined with other wound => No - Current Size (cm) - Length => 0.5 - Current Size (cm) - Width => 0.5 - Current Size (cm) - Depth => 0.3 - Total Square Cm => 0.25 - Date of Last Picture (Recall this => 10/26/22 field) - Photo Taken => Yes - Epithelialization => None Present - Tunneling => No - Undermining/Tunneling => No - Circular Undermining => No - Exudate Amt => None Present - Wound Margin => Distinct, Outline => Attached - Granulation Amt => Large (67-100%) - Granulation Quality => Red - Slough/Fibrin => Yes - Necrotic Tissue Type => Adherent Slough - Texture (Jessica-wound Skin Appearance) => Callus,Scarring - Moisture (Jessica-wound Skin Appearance) => Assessed,Dry/Scaly - Color (Jessica-wound Skin Appearance) => Assessed - Temperature (Jessica-wound Skin => No Abnormality (Pt Appearance) => Warm) - Tenderness on Palpation (Jessica-wound => No Skin Appearance) - Ulcer Cleansing => Rinsed/Irrigated => with Saline - Foul Odor after Cleansing => No - Anesthetic Used => 5% Lidocaine Gel 10/26/22 11/02/22 11/09/22 09:11 11:40 09:24 Wound Center Nurse 1 #5- L GR TOE -Combined with other wound No No No -Current Size (cm) - Length 0.5 0.2 0.4 -Current Size (cm) - Width 0.5 0.8 0.8 -Current Size (cm) - Depth 0.3 0.3 -Total Square Cm 0.25 0.16 0.32 -Date of Last Picture (Recall this 10/26/22 11/09/22 field) -Photo Taken Yes No Yes -Epithelialization None Present Small 1-33% -Tunneling No No No -Undermining/Tunneling No No No -Circular Undermining No No No -Change in Wound Grade/Stage No -Exudate Amt None Present Small None Present -Exudate Type Serosanguineous -Wound Margin Distinct, Distinct, Distinct, Outline Outline Outline Attached Attached Attached -Granulation Amt Large (67-100%) Small (1-33%) -Granulation Quality Red N/A -Slough/Fibrin Yes Yes -Necrosis Amt Small (1-33%) -Necrotic Tissue Type Adherent Slough Adherent Slough -Structure Exposed N/A -Texture (Jessica-wound Skin Appearance) Callus,Scarring No Abnormality, Assessed,Callus Assessed ,Scarring -Moisture (Jessica-wound Skin Appearance) Assessed,Dry/ No Abnormality, Assessed,Dry/ Scaly Assessed Scaly -Color (Jessica-wound Skin Appearance) Assessed No Abnormality, Assessed Assessed -Temperature (Jessica-wound Skin No Abnormality No Abnormality No Abnormality Appearance) (Pt Warm) (Pt Warm) (Pt Warm) -Tenderness on Palpation (Jessica-wound No No No Skin Appearance) -Ulcer Cleansing Rinsed/ Rinsed/ Soap and Water Irrigated with Irrigated with Saline Saline -Foul Odor after Cleansing No No No -Anesthetic Used 5% Lidocaine 4% Lidocaine 5% Lidocaine Gel Solution Gel #4- L MED LE CLUSTER -Combined with other wound No No No -Current Size (cm) - Length 14.5 0.1 -Current Size (cm) - Width 7 0.1 -Current Size (cm) - Depth 0.1 0.1 -Total Square Cm 101.5 0.01 -Date of Last Picture (Recall this 10/26/22 11/09/22 field) -Photo Taken Yes Yes -Epithelialization None Present Large 67-100% -Tunneling No -Undermining/Tunneling No -Circular Undermining No -Exudate Amt Small -Exudate Type Sanguineous -Wound Margin Distinct, Outline Attached -Granulation Amt Medium (34-66%) -Granulation Quality Red -Slough/Fibrin Yes -Necrosis Amt Medium (34-66%) -Necrotic Tissue Type Adherent Slough -Texture (Jessica-wound Skin Appearance) Assessed, Scarring -Moisture (Jessica-wound Skin Appearance) Assessed -Color (Jessica-wound Skin Appearance) Assessed -Temperature (Jessica-wound Skin No Abnormality Appearance) (Pt Warm) -Tenderness on Palpation (Jessica-wound No Skin Appearance) -Ulcer Cleansing Rinsed/ Irrigated with Saline -Foul Odor after Cleansing No -Anesthetic Used 4% Lidocaine Solution #3- L LAT LE CLUSTER -Combined with other wound No No -Current Size (cm) - Length 5.4 0.1 -Current Size (cm) - Width 2 0.1 -Current Size (cm) - Depth 0.1 0.1 -Total Square Cm 10.8 0.01 -Date of Last Picture (Recall this 10/26/22 11/09/22 field) -Photo Taken Yes Yes -Epithelialization None Present Large 67-100% -Tunneling No -Undermining/Tunneling No -Circular Undermining No -Exudate Amt Small -Exudate Type Sanguineous -Wound Margin Distinct, Outline Attached -Granulation Amt Medium (34-66%) -Granulation Quality Red -Slough/Fibrin Yes -Necrosis Amt Medium (34-66%) -Necrotic Tissue Type Eschar -Texture (Jessica-wound Skin Appearance) Assessed, Scarring -Moisture (Jessica-wound Skin Appearance) Assessed -Color (Jessica-wound Skin Appearance) Assessed -Temperature (Jessica-wound Skin No Abnormality Appearance) (Pt Warm) -Tenderness on Palpation (Jessica-wound No Skin Appearance) -Ulcer Cleansing Rinsed/ Irrigated with Saline -Foul Odor after Cleansing No -Anesthetic Used 4% Lidocaine Solution #2- RLE CLUSTER -Combined with other wound No No -Current Size (cm) - Length 14.5 0.1 -Current Size (cm) - Width 9 0.1 -Current Size (cm) - Depth 0.1 0.1 -Total Square Cm 130.5 0.01 -Date of Last Picture (Recall this 10/26/22 11/09/22 field) -Photo Taken Yes Yes -Epithelialization None Present Large 67-100% -Tunneling No -Undermining/Tunneling No -Circular Undermining No -Exudate Amt Small -Exudate Type Sanguineous -Wound Margin Distinct, Outline Attached -Granulation Amt Medium (34-66%) -Granulation Quality Red -Slough/Fibrin Yes Yes -Necrosis Amt Medium (34-66%) -Necrotic Tissue Type Eschar Eschar -Texture (Jessica-wound Skin Appearance) Assessed, Assessed Scarring -Moisture (Jessica-wound Skin Appearance) Assessed Assessed -Color (Jessica-wound Skin Appearance) Assessed Assessed -Temperature (Jessica-wound Skin No Abnormality Appearance) (Pt Warm) -Tenderness on Palpation (Jessica-wound No Skin Appearance) -Ulcer Cleansing Rinsed/ Irrigated with Saline -Foul Odor after Cleansing No -Anesthetic Used 4% Lidocaine Solution -Wound Comment(s) SOME ARE SCABBED. PT PICKS/SCRATCHES Lower Limb Edema Present Yes Right Calf (cm) 36.2 39.5 39.6 Right Ankle (cm) 23 20.5 21 Left Calf (cm) 37.5 40 39 Left Ankle (cm) 23.2 25 23 WC - Nurse 2 - General Ulcer CM Notes Start: 10/26/22 09:11 Freq: Status: Active Protocol: Activity Type Activity Date Activity User E-sign Co-sign Detail Recorded Client Recorded Date Recorded By Document 10/26/22 11:22 PL [id number] 10/26/22 11:26 PL Document 11/09/22 12:14 PL [id number] 11/09/22 12:15 PL 10/26/22 11/09/22 11:22 12:14 Wound Center Nurse 2 #5- L GR TOE -Time 09:39 -Correct Patient Yes -Correct Side, Site, Position Yes -Correct Procedure Yes -Procedure Performed Yes -Type of Procedure Debridement -Clinical Debridement Subcutaneous -Tissue Removed Subcutaneous -Post Debridement (cm) - Length 0.5 -Post Debridement (cm) - Width 0.5 -Post Debridement (cm) - Depth 0.3 -Total Square (Post) (cm) 0.25 -Area of Debridement (cm) - Length 0.5 -Area of Debridement (cm) - Width 0.5 -Total Square (Area) (cm) 0.25 -Tunneling No -Undermining/Tunneling No -Circular Undermining No -Wound/Ulcer Outcome Not Healed -Ulcer Cleansing Rinsed/ Irrigated with Saline -Foul Odor after Cleansing No -Bioengineered Tissue No -Bleeding Controlled with Pressure -Treatment Response Procedure Tolerated Well -Debridement - Subq, 1st 20sq cm No #4- L MED LE CLUSTER -Time 09:39 -Correct Patient Yes -Correct Side, Site, Position Yes -Correct Procedure Yes -Procedure Performed Yes -Type of Procedure Debridement -Clinical Debridement Subcutaneous -Tissue Removed Subcutaneous -Post Debridement (cm) - Length 14.5 -Post Debridement (cm) - Width 7.0 -Post Debridement (cm) - Depth 0.1 -Total Square (Post) (cm) 101.50 -Area of Debridement (cm) - Length 14.5 -Area of Debridement (cm) - Width 7.0 -Total Square (Area) (cm) 101.50 -Tunneling No -Undermining/Tunneling No -Circular Undermining No -Wound/Ulcer Outcome Not Healed -Ulcer Cleansing Rinsed/ Irrigated with Saline -Foul Odor after Cleansing No -Bioengineered Tissue No -Bleeding Controlled with Pressure -Treatment Response Procedure Tolerated Well -Debridement - Subq, 1st 20sq cm No #3- L LAT LE CLUSTER -Time 09:39 -Correct Patient Yes -Correct Side, Site, Position Yes -Correct Procedure Yes -Procedure Performed Yes -Type of Procedure Debridement -Clinical Debridement Subcutaneous -Tissue Removed Subcutaneous -Post Debridement (cm) - Length 5.4 -Post Debridement (cm) - Width 2.0 -Post Debridement (cm) - Depth 0.1 -Total Square (Post) (cm) 10.80 -Area of Debridement (cm) - Length 5.4 -Area of Debridement (cm) - Width 2.0 -Total Square (Area) (cm) 10.80 -Tunneling No -Undermining/Tunneling No -Circular Undermining No -Wound/Ulcer Outcome Not Healed -Ulcer Cleansing Rinsed/ Irrigated with Saline -Foul Odor after Cleansing No -Bioengineered Tissue No -Bleeding Controlled with Pressure -Treatment Response Procedure Tolerated Well -Debridement - Subq, 1st 20sq cm No #2- RLE CLUSTER -Time 09:39 09:33 -Correct Patient Yes Yes -Correct Side, Site, Position Yes Yes -Correct Procedure Yes Yes -Procedure Performed Yes Yes -Type of Procedure Debridement Debridement -Clinical Debridement Subcutaneous Subcutaneous -Tissue Removed Subcutaneous Subcutaneous -Post Debridement (cm) - Length 14.5 0.1 -Post Debridement (cm) - Width 9.0 0.1 -Post Debridement (cm) - Depth 0.1 0.1 -Total Square (Post) (cm) 130.50 0.01 -Area of Debridement (cm) - Length 14.5 0.1 -Area of Debridement (cm) - Width 9.0 0.1 -Total Square (Area) (cm) 130.50 0.01 -Tunneling No No -Undermining/Tunneling No No -Circular Undermining No No -Wound/Ulcer Outcome Not Healed Not Healed -Ulcer Cleansing Rinsed/ Rinsed/ Irrigated with Irrigated with Saline Saline -Foul Odor after Cleansing No No -Bioengineered Tissue No No -Bleeding Controlled with Pressure Pressure -Treatment Response Procedure Procedure Tolerated Well Tolerated Well -Debridement - Subq, 1st 20sq cm Yes Yes -Debridement, SubQ, ea addt'l 20sq cm 12 or part thereof Pain Scale: 0-10 Numeric Is Patient Pain Free? Yes Yes WC - Nurse 3 - General Ulcer D/C NN Start: 10/26/22 09:11 Freq: Status: Active Protocol: Activity Type Activity Date Activity User E-sign Co-sign Detail Recorded Client Recorded Date Recorded By Document 10/26/22 09:51 MW [id number] 10/26/22 09:54 MW Document 11/02/22 11:40 AK [id number] 11/02/22 11:48 AK Document 11/09/22 09:54 [facility] [id number] 11/09/22 09:54 BM 10/26/22 11/02/22 11/09/22 09:51 11:40 09:54 Wound Care Center Nurse 3 #5- L GR TOE -Ulcer Cleansing Rinsed/ Rinsed/ Irrigated with Irrigated with Saline Saline -Foul Odor after Cleansing No No -Negative Pressure Wound Therapy N/A N/A -Primary Dressing Applied Promogran Promogran -Primary Dressing Covered/Secured with Dry Gauze Dry Gauze, Secured with Tape -Promogran 1 1 #4- L MED LE CLUSTER -Ulcer Cleansing Rinsed/ Irrigated with Saline -Foul Odor after Cleansing No -Negative Pressure Wound Therapy N/A -Other Dressing promogran -Primary Dressing Covered/Secured with Dry Gauze #3- L LAT LE CLUSTER -Ulcer Cleansing Rinsed/ Irrigated with Saline -Foul Odor after Cleansing No -Negative Pressure Wound Therapy N/A -Other Dressing promogran -Primary Dressing Covered/Secured with Dry Gauze #2- RLE CLUSTER -Ulcer Cleansing Rinsed/ Rinsed/ Irrigated with Irrigated with Saline Saline -Foul Odor after Cleansing No No -Negative Pressure Wound Therapy N/A -Primary Dressing Applied Promogran -Other Dressing promogran -Primary Dressing Covered/Secured with Dry Gauze Dry Gauze -Promogran 1 Bilateral LE -Lotion applied to leg before No Yes Yes compression wrap -Multi-Layered Wrap Application Multi-Layer Unna Boot - Multi-Layer Comp - Bilat ($ Bilateral ($) Comp - Bilat ($ ) ) -Stockings No Treatment Response Procedure Procedure Tolerated Well Tolerated Well Vital Signs Temperature (97.8 F-99.1 F) 97.4 F L Temperature Source Temporal Pulse Rate (60-100) 69 Pulse Location Monitor Blood Pressure (90/60-120/80) 142/67 H Blood Pressure Mean 92 Source Monitor Pain Scale: 0-10 Numeric Is Patient Pain Free? Yes Yes Yes Teaching: Wound Center Dressing Your Wound -Person Taught Patient -Teaching Method Discussion -Response to teaching Verbalize understanding WC - Visit Discharge Discharge Condition Stable Stable Stable Ambulatory Status Ambulatory, Ambulatory, Walker Walker Transportation [facility] Private Auto Private Auto transportation Medication Reconcilliation completed & No Yes provided to patient/care provider Clinical Summary of Care Provided Yes Yes Notes: Dressing and wraps applied per Jagdeep Bellamy LPN. Facility Type Home Health Assessment/Plan Assessment/Plan (1) Bilateral leg ulcer: CODE(S): L97.919 - Non-pressure chronic ulcer of unspecified part of right lower leg with unspecified severity; L97.929 - Non-pressure chronic ulcer of unspecified part of left lower leg with unspecified severity QUALIFIERS: Non-pressure ulcer stage: with fat layer exposed Qualified Code(s): L97.912 - Non-pressure chronic ulcer of unspecified part of right lower leg with fat layer exposed; L97.922 - Non-pressure chronic ulcer of unspecified part of left lower leg with fat layer exposed (2) CKD (chronic kidney disease): CODE(S): N18.9 - Chronic kidney disease, unspecified (3) Acute on chronic heart failure: CODE(S): I50.9 - Heart failure, unspecified (4) Paroxysmal A-fib: CODE(S): I48.0 - Paroxysmal atrial fibrillation (5) Chronic anticoagulation: CODE(S): Z79.01 - supervisor intermediates (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 (6) Hyperlipidemia: CODE(S): E78.5 - Hyperlipidemia, unspecified (7) Essential hypertension: CODE(S): I10 - Essential (primary) hypertension (8) Non-rheumatic mitral valve stenosis: CODE(S): I34.2 - Nonrheumatic mitral (valve) stenosis (9) Nonrheumatic aortic (valve) stenosis: CODE(S): I35.0 - Nonrheumatic aortic (valve) stenosis (10) History of cerebrovascular accident: CODE(S): Z86.73 - Personal history of transient ischemic attack (TIA), and cerebral infarction without residual deficits (11) Pulmonary hypertension: CODE(S): I27.20 - Pulmonary hypertension, unspecified (12) Renal insufficiency: CODE(S): N28.9 - Disorder of kidney and ureter, unspecified (13) Type II diabetes mellitus: CODE(S): E11.9 - Type 2 diabetes mellitus without complications (14) Obstructive sleep apnea: CODE(S): G47.33 - Obstructive sleep apnea (adult) (pediatric) (15) Urinary incontinence, overflow: CODE(S): N39.490 - Overflow incontinence (16) Hypertriglyceridemia: CODE(S): E78.1 - Pure hyperglyceridemia (17) Failure to thrive: (18) Venous insufficiency: CODE(S): I87.2 - Venous insufficiency (chronic) (peripheral) (19) Osteoporosis: CODE(S): M81.0 - Age-related osteoporosis without current pathological fracture QUALIFIERS: Osteoporosis type: age-related Presence of current pathological fracture: without current pathological fracture Qualified Code(s): M81.0 - Age-related osteoporosis without current pathological fracture (20) Debility: CODE(S): R53.81 - Other malaise (21) History of back surgery: CODE(S): Z98.890 - Other specified postprocedural states (22) History of carpal tunnel release: CODE(S): Z98.890 - Other specified postprocedural states (23) History of hysterectomy: CODE(S): Z90.710 - Acquired absence of both cervix and uterus (24) History of left elbow replacement: CODE(S): Z96.622 - Presence of left artificial elbow joint (25) History of amputation of finger of right hand: CODE(S): Z89.021 - Acquired absence of right finger(s) PLAN: Plan This is a 72-year-old diabetic female with multiple pre-existing medical problems, which are listed herein. She presented with multiple small, superficial ulcerations and eschars in her lower extremities bilaterally. 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 Picking and scratching at her ulcerations has been strongly discouraged. The patient has been urged to elevate her lower extremities is much as possible. Elevation is to be to heart level, or higher. She is to continue sleeping on a flat mattress at night. Elevation is to occur during daytime hours as well. Prolonged idle sitting has been discouraged. Activity has been encouraged. Bacterial cultures of the patient's ulcerations were performed recently, and were positive for MRSA. Patient has been started on Levaquin 500 mg p.o. daily for 10 days, which is now nearly completed. She has been treated for MRSA infection in the recent past as well. Therefore, we have prescribed mupirocin ointment 2% for intranasal use. It is to be applied intranasally twice daily for 5 days. In addition, the patient has been instructed to obtain Hibiclens 4% soap, and to shower daily using Hibiclens for a total of 7 days. We are to continue the use of Promogran topically to the remaining small ulceration on the right pretibial area. The patient has demonstrated significant improvement in recent weeks, likely due, in part, to the use of 3M 2 layer compression wraps which prevent her from picking at her wounds. So as to help prevent scratching and picking on the part of the patient, we are to continue the use of 3M 2 layer compression wraps, which will be changed twice weekly. The patient has home health nursing care for assistance with 3M 2 layer compression wraps. Promogran will be used topically at the site of the remaining small, superficial ulceration. The patient is to return in 1 week for reevaluation. She has been encouraged to follow-up with her weaver hand, Dr. Wayne Spencer, relative to a dry, escharous ulceration on her right great toe, which shows no sign of infection. Total time: 28 minutes
== END 2022-11-12 23:59 | disposition home or self-care (01) ==
LOC: WC 09:00
PROVIDERS: PCP Internal Medicine; Referring Provider Internal Medicine; Visit Provider Surgery
DX: E11.622 Type 2 diabetes mellitus with other skin ulcer (principal); L97.912 Non-pressure chronic ulcer of unspecified part of right lower leg with fat layer exposed; L97.922 Non-pressure chronic ulcer of unspecified part of left lower leg with fat layer exposed; I13.0 Hypertensive heart and chronic kidney disease with heart failure and stage 1 through stage 4 chronic kidney disease, or unspecified chronic kidney disease; I50.9 Heart failure, unspecified; I27.20 Pulmonary hypertension, unspecified; E11.22 Type 2 diabetes mellitus with diabetic chronic kidney disease; I48.0 Paroxysmal atrial fibrillation; N18.32 Chronic kidney disease, stage 3b; M81.0 Age-related osteoporosis without current pathological fracture; I87.2 Venous insufficiency (chronic) (peripheral); D64.9 Anemia, unspecified; Z79.01 Long term (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; E78.1 Pure hyperglyceridemia; N39.490 Overflow incontinence; G47.33 Obstructive sleep apnea (adult) (pediatric); Z79.82 Long term (current) use of aspirin; I34.2 Nonrheumatic mitral (valve) stenosis; I35.0 Nonrheumatic aortic (valve) stenosis; M54.9 Dorsalgia, unspecified; G89.29 Other chronic pain; R62.7 Adult failure to thrive; E66.9 Obesity, unspecified; Z68.34 Body mass index [BMI] 34.0-34.9, adult; Z79.84 Long term (current) use of oral hypoglycemic drugs; Z86.14 Personal history of Methicillin resistant Staphylococcus aureus infection; Z89.021 Acquired absence of right finger(s); Z90.710 Acquired absence of both cervix and uterus
CPT/HCPCS: 11042; 11045; 29580; 29581; 87070; 87075; 87077; 87186; 87205; 99213; G0463

== ENCOUNTER 2022-11-23 09:21 | Outpatient (RCR) | payer MEDICARE, SELFPAY ==
[2022-11-13 01:20] VITALS: BP 167/71; PULSE 81; RESP 16; TEMP 36.3; BMI 34.9
[2022-11-23 09:44] VITALS: BP 148/59; PULSE 59; RESP 20; TEMP 36.3; BMI 34.9
--- NOTE | 2022-11-23 10:49 | HP.PCM_ITS ---
History of Present Illness Date of Service: 11/23/22 Chief Complaint: Multiple, small superficial ulcerations in the lower extr emities bilaterally History of Wound: This 72-year-old white female who presented with bilateral lower extremity ulcerations. They are small in size, but multiple in number. They have been present for a lengthy period of time. 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 The patient has been using silver cell and Alberto wraps. The patient also experiences swelling and edema in her lower extremities. She sleeps in a bed at night. The patient has recently been hospitalized at [facility] following amputation of her distal right third finger, follow ing which she developed a MRSA infection/osteomyelitis with positive MRSA blood cultures. She has been under the care of Dr. Kiran Wolff, plastic surgeon, in this regard. Her recent MRSA infection is said to have been her first and only history of MRSA infections. She underwent surgery on 07/12/22 for surgical preparation right long finger amputation stump ulcer with incision and drainage and excisional debridement MRSA abscess and partial ostectomy middle phalanx for osteomyelitis. Operative tissue cultures positive for Enterobacter cloacae complex and MRSA. Operative bone cultures positive for MRSA and MRSE. She was discharged home on 07/15/22 with a PICC line and IV Vancomycin and oral Cipro. She was seen by ID while hospitalized and was to follow up ID post- discharge. [facility] Medical History Abnormal mammogram of right breast Abscess of right middle finger Acute kidney injury Acute on chronic heart failure Alcohol use Anemia Anxiety Anxiety and depression Arthritis Atrial fib/flutter, transient Atrial fibrillation Back pain Bacteremia Bilateral leg ulcer Breast lump Burn injury of skin of finger Cardiology follow-up encounter Chronic anticoagulation Chronic back pain Chronic cough CKD (chronic kidney disease) COVID-19 vaccine series completed CPAP (continuous positive airway pressure) dependence CVA (cerebral vascular accident) Depression Depression with anxiety Diabetes mellitus Dietary restriction DKA (diabetic ketoacidoses) Elevated brain natriuretic peptide (BNP) level Essential hypertension Finger infection Flu vaccine need Former smoker Health care maintenance History of cerebrovascular accident History of echocardiogram History of edema History of stress test History of UTI Hyperlipidemia Hypertension Intertrigo Irregular heartbeat Kidney disease 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 (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 MRSA infection 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 without evidence of necrosis Non-rheumatic mitral valve stenosis Nonrheumatic aortic (valve) stenosis Osteoarthritis Osteomyelitis of finger of right hand Osteoporosis Overactive bladder Pancreatitis Paroxysmal A-fib Paroxysmal atrial fibrillation Paroxysmal atrial fibrillation with RVR Post-menopausal Preoperative evaluation to rule out surgical contraindication Stage 3b chronic kidney disease (CKD) Subtherapeutic international normalized ratio (INR) Tachycardia Urinary incontinence, overflow Venous insufficiency Vision problems Walker as ambulation aid Weakness Home Medications acetaminophen 325 mg capsule 650 mg PO PRN PRN Pain 12/02/21 [History Last Taken 07/08/22] amlodipine 10 mg tablet 10 mg PO DAILY BP #90 tabs 09/07/22 [Rx Last Taken Unknown] ascorbic acid (vitamin C) 500 mg tablet (Vitamin C) 500 mg PO DAILY vitamin #90 tabs 09/07/22 [Rx Last Taken Unknown] aspirin 81 mg chewable tablet 81 mg PO BREAKFAST Heart #90 tabs 09/07/22 [Rx Last Taken Unknown] cholecalciferol (vitamin D3) 50 mcg (2,000 unit) capsule 50 mcg PO DAILY vitamin #90 caps 09/07/22 [Rx Last Taken Unknown] ferrous sulfate 325 mg (65 mg iron) tablet 325 mg PO DAILY Supplement #90 tabs 09/07/22 [Rx Last Taken Unknown] glimepiride 4 mg tablet 4 mg PO BID dm 3 months #180 tabs 09/07/22 [Rx Last Taken Unknown] metformin 1,000 mg tablet 1,000 mg PO BID DM #180 tabs 09/07/22 [Rx Last Taken Unknown] multivitamin 1 tab PO DAILY SUPPLEMENT #90 tabs 09/07/22 [Rx Last Taken Unknown] oxybutynin chloride 15 mg tablet,extended release 24 hr 15 mg PO BID bladder #180 tabs 09/07/22 [Rx Last Taken Unknown] sertraline 100 mg tablet (Zoloft) 100 mg PO DAILY anxiety #90 tabs 09/07/22 [Rx Last Taken Unknown] atorvastatin 20 mg tablet (Lipitor) 20 mg PO DAILY Check with primary doctor 09/09/22 [History Last Taken Unknown] diltiazem HCl 240 mg capsule,extended release 24 hr (Cardizem CD) 240 mg PO DAILY heart 09/09/22 [History Last Taken Unknown] WOUND CARE #1 ea 10/06/22 [Rx Last Taken Unknown] apixaban 5 mg tablet 5 mg PO BID blood thinner #180 tabs 10/15/22 [Rx Last Taken Unknown] nystatin 100,000 unit/gram topical powder 1 applic topical BID PRN Rash 10/26/22 [History Last Taken Unknown] metoprolol tartrate 100 mg tablet 100 mg PO BID #60 tabs 11/18/22 [Rx Last Taken Unknown] furosemide 20 mg tablet 20 mg PO DAILY #90 tabs 11/22/22 [Rx Last Taken Unknown] Allergy/AdvReac Type Severity Reaction Status Date / Time fosinopril [From Monopril] Allergy Unknown Other Verified 11/12/22 13:47 pioglitazone AdvReac Other Verified 11/12/22 13:47 Family History Father Diabetes High cholesterol Heart disease Melanoma Hypertension Mother Heart disease Brother AIDS (acquired immune deficiency syndrome) Surgical History History of amputation of finger of right hand History of back surgery History of back surgery History of carpal tunnel release History of carpal tunnel release History of hand surgery History of hysterectomy History of hysterectomy History of left elbow replacement History of left elbow replacement History of surgical amputation of finger of right hand Hx of colonoscopy S/P hysterectomy S/P ORIF (open reduction internal fixation) fracture Status post surgical amputation of finger of right hand Social History household members: none Smoking Status: Never smoker how long ago did patient quit smokin years ago alcohol intake: current alcohol intake frequency: holidays/special occasions only substance use type: does not use what type of physical activity do you participate in: other details: aquasize Vital Signs Vital Signs Vital Signs: 11/23/22 09:44 Temperature 97.3 F L Temperature Source Temporal Pulse Rate 59 L Respiratory Rate 20 H Blood Pressure 148/59 H Blood Pressure Mean 88 Blood Pressure Source Monitor Weight Weight: 185 lb Body Mass Index (BMI) 34.9 Physical Exam Const alert, oriented x3, no apparent distress and well nourished Constitutional Narrative: The patient is mildly obese. General Appearance: cooperative, comfortable and well developed Orientation / Consciousness: awake, oriented to person, oriented to place and oriented to time HEENT normocephalic and head/scalp atraumatic Head and Scalp: normal to inspection, normocephalic and atraumatic External Ear: external ears normal Eyes PERRL and EOMs intact bilaterally General Eye: normal appearance of both eyes Resp normal respiratory effort, normal air movement, no retractions and no use of accessory muscles Effort and Inspection: able to speak in complete sentences Extremity no calf tenderness General Extremity: Negative for clubbing or cyanosis Skin Wound Narrative: Minimal swelling and edema are noted in the patient's lower extremities bilaterally. The multiple small wounds and eschars in the patient's lower extremities are now all healed. There is no sign of infection or cellulitis. Pedal pulses are strong by Doppler signal assessment. There has been significant improvement within the last several weeks. There is callus at the right metatarsophalangeal joint, though no angela open wound. Neuro oriented x3, CN's II-XII intact bilaterally and moves all extremities Sensorium / Orientation: awake, alert, oriented to person, oriented to place and oriented to time Psych Appearance: grossly normal and appropriate Attitude: calm Activity / Motor Behavior: appropriate eye contact Speech: normal speech Mood & Affect: euthymic mood Thought Process: normal thought process Thought Content: normal thought content Attention / Concentration: attention grossly intact Debridement Note Debridement Note No debridement was completed: No debridement was completed today Post-Debridement Measurements and Additional Note: Post-Debridement Measurements/Treatment - Nurse 1 - General Ulcer Assessment Start: 11/23/22 09:43 Freq: Status: Active Protocol: WC.LOWFRANKIT Activity Type Activity Date Activity User E-sign Co-sign Detail Recorded Client Recorded Date Recorded By Document 11/23/22 09:44 [id number] 11/23/22 09:57 DL 11/23/22 09:44 - Today's Visit Information Type of service 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 ) Arrival Mode Ambulatory, Walker Transfer Assistance None Patient Identification Verified (Name & Yes ) Patient Requires Transmission-Based No Precautions Finger Stick Blood Sugar(mg/dl) (if 132 indicated): Blood Sugar Stated by Patient Height and Weight Body Mass Index (BMI) 34.9 BMI Classification Obese Vital Signs Temperature (97.8 F-99.1 F) 97.3 F L Temperature Source Temporal Pulse Rate (60-100) 59 L Pulse Location Monitor Respiratory Rate (12-18) 20 H Respiratory rate source Observation Blood Pressure (90/60-120/80) 148/59 H Blood Pressure Mean 88 Source Monitor History Since Last Visit- (Skip if this is Patient's initial visit) Have you changed medications since your No last visit? Any new allergies or adverse reactions No Had a fall/change in ADL's that may No increase risk of falls Signs or symptoms of abuse and/or No neglect since last visit Have you been in the hospital since your No last visit? Has dressing in place as prescribed Yes Has compression in place as prescribed Yes Has offloadiing in place as prescribed N/A Experienced any changes in pain level or No management Pain Scale: 0-10 Numeric Is Patient Pain Free? Yes WC - Nurse 1 - General Ulcer Measurement Start: 11/23/22 09:43 Freq: Status: Active Protocol: Activity Type Activity Date Activity User E-sign Co-sign Detail Recorded Client Recorded Date Recorded By Document 11/23/22 09:44 DL [id number] 11/23/22 09:57 DL 11/23/22 09:44 Wound Center Nurse 1 #5- L GR TOE -Current Size (cm) - Length 0.1 -Current Size (cm) - Width 0.1 -Current Size (cm) - Depth 0.1 -Total Square Cm 0.01 -Exudate Amt None Present -Wound Margin Thickened -Granulation Amt Large (67-100%) -Granulation Quality Pale -Necrosis Amt None Present (0 %) -Structure Exposed N/A -Texture (Jessica-wound Skin Appearance) Callus -Moisture (Jessica-wound Skin Appearance) No Abnormality -Color (Jessica-wound Skin Appearance) No Abnormality -Temperature (Jessica-wound Skin No Abnormality Appearance) (Pt Warm) -Ulcer Cleansing Soap and Water -Foul Odor after Cleansing No -Anesthetic Used 5% Lidocaine Gel #4- L MED LE CLUSTER -Current Size (cm) - Length 0.1 -Current Size (cm) - Width 0.1 -Current Size (cm) - Depth 0.1 -Total Square Cm 0.01 -Exudate Amt None Present -Wound Margin Flat & Intact -Granulation Amt Large (67-100%) -Granulation Quality [place] -Necrosis Amt None Present (0 %) -Structure Exposed N/A -Texture (Jessica-wound Skin Appearance) Assessed -Moisture (Jessica-wound Skin Appearance) Dry/Scaly -Color (Jessica-wound Skin Appearance) No Abnormality -Temperature (Jessica-wound Skin No Abnormality Appearance) (Pt Warm) -Tenderness on Palpation (Jessica-wound No Skin Appearance) -Ulcer Cleansing Soap and Water -Foul Odor after Cleansing No #3- L LAT LE CLUSTER -Current Size (cm) - Length 0 -Current Size (cm) - Width 0 -Current Size (cm) - Depth 0 -Total Square Cm 0 -Photo Taken Yes -Exudate Amt None Present -Wound Margin Flat & Intact -Granulation Amt Large (67-100%) -Granulation Quality Pale -Necrosis Amt None Present (0 %) -Structure Exposed N/A -Texture (Jessica-wound Skin Appearance) No Abnormality, Assessed -Moisture (Jessica-wound Skin Appearance) No Abnormality -Color (Jessica-wound Skin Appearance) No Abnormality -Temperature (Jessica-wound Skin No Abnormality Appearance) (Pt Warm) -Tenderness on Palpation (Jessica-wound No Skin Appearance) -Ulcer Cleansing Soap and Water -Foul Odor after Cleansing No #2- RLE CLUSTER -Current Size (cm) - Length 0.4 -Current Size (cm) - Width 0.3 -Current Size (cm) - Depth 0.1 -Total Square Cm 0.12 -Exudate Amt None Present -Granulation Amt None Present (0 %) -Necrosis Amt Small (1-33%) -Necrotic Tissue Type Eschar -Structure Exposed N/A -Texture (Jessica-wound Skin Appearance) No Abnormality -Moisture (Jessica-wound Skin Appearance) No Abnormality -Color (Jessica-wound Skin Appearance) No Abnormality -Temperature (Jessica-wound Skin No Abnormality Appearance) (Pt Warm) -Tenderness on Palpation (Jessica-wound No Skin Appearance) -Ulcer Cleansing Soap and Water -Foul Odor after Cleansing No -Anesthetic Used 5% Lidocaine Gel Right Calf (cm) 33.5 Right Ankle (cm) 20 Left Calf (cm) 33 Left Ankle (cm) 21.1 WC - Nurse 3 - General Ulcer D/C NN Start: 11/23/22 09:43 Freq: Status: Active Protocol: Activity Type Activity Date Activity User E-sign Co-sign Detail Recorded Client Recorded Date Recorded By Document 11/23/22 10:40 DL [id number] 11/23/22 10:42 DL 11/23/22 10:40 Wound Care Center Nurse 3 Right -Tubular Bandage Single Layer -Size of Tubigrip Used Size C -Size C ($) 1 Left -Tubular Bandage Single Layer -Size of Tubigrip Used Size C -Size C ($) 1 Treatment Response Procedure Tolerated Well Pain Scale: 0-10 Numeric Is Patient Pain Free? Yes WC - Visit Discharge Discharge Condition Stable Ambulatory Status Ambulatory Transportation Private Auto Notes: Healed, discharged. Assessment/Plan Assessment/Plan (1) Bilateral leg ulcer: CODE(S): L97.919 - Non-pressure chronic ulcer of unspecified part of right lower leg with unspecified severity; L97.929 - Non-pressure chronic ulcer of unspecified part of left lower leg with unspecified severity QUALIFIERS: Non-pressure ulcer stage: with fat layer exposed Qualified Code(s): L97.912 - Non-pressure chronic ulcer of unspecified part of right lower leg with fat layer exposed; L97.922 - Non-pressure chronic ulcer of unspecified part of left lower leg with fat layer exposed (2) CKD (chronic kidney disease): CODE(S): N18.9 - Chronic kidney disease, unspecified (3) Acute on chronic heart failure: CODE(S): I50.9 - Heart failure, unspecified (4) Paroxysmal A-fib: CODE(S): I48.0 - Paroxysmal atrial fibrillation (5) Chronic anticoagulation: CODE(S): Z79.01 - technician terminal and repeater (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 (6) Hyperlipidemia: CODE(S): E78.5 - Hyperlipidemia, unspecified (7) Essential hypertension: CODE(S): I10 - Essential (primary) hypertension (8) Non-rheumatic mitral valve stenosis: CODE(S): I34.2 - Nonrheumatic mitral (valve) stenosis (9) Nonrheumatic aortic (valve) stenosis: CODE(S): I35.0 - Nonrheumatic aortic (valve) stenosis (10) History of cerebrovascular accident: CODE(S): Z86.73 - Personal history of transient ischemic attack (TIA), and cerebral infarction without residual deficits (11) Pulmonary hypertension: CODE(S): I27.20 - Pulmonary hypertension, unspecified (12) Renal insufficiency: CODE(S): N28.9 - Disorder of kidney and ureter, unspecified (13) Type II diabetes mellitus: CODE(S): E11.9 - Type 2 diabetes mellitus without complications (14) Obstructive sleep apnea: CODE(S): G47.33 - Obstructive sleep apnea (adult) (pediatric) (15) Urinary incontinence, overflow: CODE(S): N39.490 - Overflow incontinence (16) Hypertriglyceridemia: CODE(S): E78.1 - Pure hyperglyceridemia (17) Failure to thrive: (18) Venous insufficiency: CODE(S): I87.2 - Venous insufficiency (chronic) (peripheral) (19) Osteoporosis: CODE(S): M81.0 - Age-related osteoporosis without current pathological fracture QUALIFIERS: Osteoporosis type: age-related Presence of current pathological fracture: without current pathological fracture Qualified Code(s): M81.0 - Age-related osteoporosis without current pathological fracture (20) Debility: CODE(S): R53.81 - Other malaise (21) History of back surgery: CODE(S): Z98.890 - Other specified postprocedural states (22) History of carpal tunnel release: CODE(S): Z98.890 - Other specified postprocedural states (23) History of hysterectomy: CODE(S): Z90.710 - Acquired absence of both cervix and uterus (24) History of left elbow replacement: CODE(S): Z96.622 - Presence of left artificial elbow joint (25) History of amputation of finger of right hand: CODE(S): Z89.021 - Acquired absence of right finger(s) PLAN: Plan This is a 72-year-old diabetic female with multiple pre-existing medical problems, which are listed herein. She presented with multiple small, superficial ulcerations and eschars in her lower extremities bilaterally. 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 Picking and scratching at her ulcerations has been strongly discouraged. The patient has been urged to elevate her lower extremities is much as possible. Elevation is to be to heart level, or higher. She is to continue sleeping on a flat mattress at night. Elevation is to occur during daytime hours as well. Prolonged idle sitting has been discouraged. Activity has been encouraged. Bacterial cultures of the patient's ulcerations were performed recently, and were positive for MRSA. The patient was treated with Levaquin 500 mg p.o. daily for 10 days. She has been treated for MRSA infection in the recent past as well. Therefore, we have prescribed mupirocin ointment 2% for intranasal use. It was applied intranasally twice daily for 5 days. In addition, the patient was instructed to obtain Hibiclens 4% soap, and to shower daily using Hibiclens for a total of 7 days. Because the patient is now completely healed, she is to be discharged and will follow-up henceforth on an as-needed basis. A prescription has been provided for graduated compression stockings of 15 to 20 mmHg compression, to be worn on a daily basis. She has been discouraged from picking at scabs or calluses in her lower extremities. She has been encouraged to follow-up with her dermatology sales representative, Dr. Wayne Spencer, relative to a dry, escharous ulceration and callus on her right great toe, which shows no sign of infection. The patient is to follow-up henceforth on a as needed basis at the wound care facility. Total time: 26 minutes
== END 2022-11-24 07:37 | disposition home or self-care (01) ==
LOC: WC 09:21
PROVIDERS: PCP Internal Medicine; Referring Provider Internal Medicine; Visit Provider Surgery
DX: Z09 Encounter for follow-up examination after completed treatment for conditions other than malignant neoplasm (principal); I13.0 Hypertensive heart and chronic kidney disease with heart failure and stage 1 through stage 4 chronic kidney disease, or unspecified chronic kidney disease; I50.9 Heart failure, unspecified; I27.20 Pulmonary hypertension, unspecified; E11.22 Type 2 diabetes mellitus with diabetic chronic kidney disease; E11.59 Type 2 diabetes mellitus with other circulatory complications; I48.0 Paroxysmal atrial fibrillation; N18.32 Chronic kidney disease, stage 3b; Z79.82 Long term (current) use of aspirin; R62.7 Adult failure to thrive; N39.490 Overflow incontinence; Z79.01 Long term (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; M54.9 Dorsalgia, unspecified; I87.2 Venous insufficiency (chronic) (peripheral); G47.33 Obstructive sleep apnea (adult) (pediatric); M81.0 Age-related osteoporosis without current pathological fracture; G89.29 Other chronic pain; R60.0 Localized edema; I34.2 Nonrheumatic mitral (valve) stenosis; Z79.84 Long term (current) use of oral hypoglycemic drugs; F41.9 Anxiety disorder, unspecified; E78.1 Pure hyperglyceridemia; F32.A Depression, unspecified; Z87.39 Personal history of other diseases of the musculoskeletal system and connective tissue; Z86.14 Personal history of Methicillin resistant Staphylococcus aureus infection; Z90.710 Acquired absence of both cervix and uterus; Z96.622 Presence of left artificial elbow joint; Z89.021 Acquired absence of right finger(s); Z79.899 Other long term (current) drug therapy
CPT/HCPCS: 99213; G0463

== ENCOUNTER 2022-12-21 09:28 | Outpatient (RCR) | payer MEDICARE, SELFPAY ==
[2022-12-21 09:38] VITALS: BP 157/67; PULSE 59; RESP 18; TEMP 36.4
--- NOTE | 2022-12-21 10:01 | HP.PCM_ITS ---
History of Present Illness Date of Service: 12/21/22 Chief Complaint: Multiple, small superficial ulcerations in the lower extr emities bilaterally History of Wound: This 72-year-old white female who presented with bilateral lower extremity ulcerations. They are small in size, but multiple in number. They have been present for a lengthy period of time. 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 The patient has been using silver cell and Alberto wraps. The patient also experiences swelling and edema in her lower extremities. She sleeps in a bed at night. The patient has recently been hospitalized at [facility] following amputation of her distal right third finger, follow ing which she developed a MRSA infection/osteomyelitis with positive MRSA blood cultures. She has been under the care of Dr. Kiran Wolff, plastic surgeon, in this regard. Her recent MRSA infection is said to have been her first and only history of MRSA infections. She underwent surgery on 07/12/22 for surgical preparation right long finger amputation stump ulcer with incision and drainage and excisional debridement MRSA abscess and partial ostectomy middle phalanx for osteomyelitis. Operative tissue cultures positive for Enterobacter cloacae complex and MRSA. Operative bone cultures positive for MRSA and MRSE. She was discharged home on 07/15/22 with a PICC line and IV Vancomycin and oral Cipro. She was seen by ID while hospitalized and was to follow up ID post- discharge. [facility] Medical History Abnormal mammogram of right breast Abscess of right middle finger Acute kidney injury Acute on chronic heart failure Alcohol use Anemia Anxiety Anxiety and depression Arthritis Atrial fib/flutter, transient Atrial fibrillation Back pain Bacteremia Bilateral leg ulcer Breast lump Burn injury of skin of finger Cardiology follow-up encounter Chronic anticoagulation Chronic back pain Chronic cough CKD (chronic kidney disease) COVID-19 vaccine series completed CPAP (continuous positive airway pressure) dependence CVA (cerebral vascular accident) Depression Depression with anxiety Diabetes mellitus Dietary restriction DKA (diabetic ketoacidoses) Elevated brain natriuretic peptide (BNP) level Essential hypertension Finger infection Flu vaccine need Former smoker Health care maintenance History of cerebrovascular accident History of echocardiogram History of edema History of stress test History of UTI Hyperlipidemia Hypertension Intertrigo Irregular heartbeat Kidney disease skilled nursing (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 MRSA infection 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 without evidence of necrosis Non-rheumatic mitral valve stenosis Nonrheumatic aortic (valve) stenosis Osteoarthritis Osteomyelitis of finger of right hand Osteoporosis Overactive bladder Pancreatitis Paroxysmal A-fib Paroxysmal atrial fibrillation Paroxysmal atrial fibrillation with RVR Post-menopausal Preoperative evaluation to rule out surgical contraindication Stage 3b chronic kidney disease (CKD) Subtherapeutic international normalized ratio (INR) Tachycardia Urinary incontinence, overflow Venous insufficiency Vision problems Walker as ambulation aid Weakness Home Medications acetaminophen 325 mg capsule 650 mg PO PRN PRN Pain 12/02/21 [History Last Taken 07/08/22] amlodipine 10 mg tablet 10 mg PO DAILY BP #90 tabs 09/07/22 [Rx Last Taken Unknown] ascorbic acid (vitamin C) 500 mg tablet (Vitamin C) 500 mg PO DAILY vitamin #90 tabs 09/07/22 [Rx Last Taken Unknown] aspirin 81 mg chewable tablet 81 mg PO BREAKFAST Heart #90 tabs 09/07/22 [Rx Last Taken Unknown] cholecalciferol (vitamin D3) 50 mcg (2,000 unit) capsule 50 mcg PO DAILY vitamin #90 caps 09/07/22 [Rx Last Taken Unknown] ferrous sulfate 325 mg (65 mg iron) tablet 325 mg PO DAILY Supplement #90 tabs 09/07/22 [Rx Last Taken Unknown] glimepiride 4 mg tablet 4 mg PO BID dm 3 months #180 tabs 09/07/22 [Rx Last Taken Unknown] metformin 1,000 mg tablet 1,000 mg PO BID DM #180 tabs 09/07/22 [Rx Last Taken Unknown] multivitamin 1 tab PO DAILY SUPPLEMENT #90 tabs 09/07/22 [Rx Last Taken Unknown] oxybutynin chloride 15 mg tablet,extended release 24 hr 15 mg PO BID bladder #180 tabs 09/07/22 [Rx Last Taken Unknown] sertraline 100 mg tablet (Zoloft) 100 mg PO DAILY anxiety #90 tabs 09/07/22 [Rx Last Taken Unknown] atorvastatin 20 mg tablet (Lipitor) 20 mg PO DAILY Check with primary doctor 09/09/22 [History Last Taken Unknown] diltiazem HCl 240 mg capsule,extended release 24 hr (Cardizem CD) 240 mg PO DAILY heart 09/09/22 [History Last Taken Unknown] WOUND CARE #1 ea 10/06/22 [Rx Last Taken Unknown] apixaban 5 mg tablet 5 mg PO BID blood thinner #180 tabs 10/15/22 [Rx Last Taken Unknown] nystatin 100,000 unit/gram topical powder 1 applic topical BID PRN Rash 10/26/22 [History Last Taken Unknown] metoprolol tartrate 100 mg tablet 100 mg PO BID #60 tabs 11/18/22 [Rx Last Taken Unknown] furosemide 20 mg tablet 20 mg PO DAILY #90 tabs 11/22/22 [Rx Last Taken Unknown] Allergy/AdvReac Type Severity Reaction Status Date / Time fosinopril [From Monopril] Allergy Unknown Other Verified 11/12/22 13:47 pioglitazone AdvReac Other Verified 11/12/22 13:47 Family History Father Diabetes High cholesterol Heart disease Melanoma Hypertension Mother Heart disease Brother AIDS (acquired immune deficiency syndrome) Surgical History History of amputation of finger of right hand History of back surgery History of back surgery History of carpal tunnel release History of carpal tunnel release History of hand surgery History of hysterectomy History of hysterectomy History of left elbow replacement History of left elbow replacement History of surgical amputation of finger of right hand Hx of colonoscopy S/P hysterectomy S/P ORIF (open reduction internal fixation) fracture Status post surgical amputation of finger of right hand Social History household members: none Smoking Status: Never smoker how long ago did patient quit smokin years ago alcohol intake: current alcohol intake frequency: holidays/special occasions only substance use type: does not use what type of physical activity do you participate in: other details: aquasize Vital Signs Vital Signs Vital Signs: 12/21/22 09:38 Temperature 97.5 F L Temperature Source Temporal Pulse Rate 59 L Respiratory Rate 18 Blood Pressure 157/67 H Blood Pressure Mean 97 Blood Pressure Source Monitor Physical Exam Const alert, oriented x3, no apparent distress and well nourished Constitutional Narrative: The patient is mildly obese. General Appearance: cooperative, comfortable and well developed Orientation / Consciousness: awake, oriented to person, oriented to place and oriented to time HEENT normocephalic and head/scalp atraumatic Head and Scalp: normal to inspection, normocephalic and atraumatic External Ear: external ears normal Eyes PERRL and EOMs intact bilaterally General Eye: normal appearance of both eyes Resp normal respiratory effort, normal air movement, no retractions and no use of accessory muscles Effort and Inspection: able to speak in complete sentences Extremity no calf tenderness General Extremity: Negative for clubbing or cyanosis Skin Wound Narrative: Mild swelling and edema are noted in the patient's lower extremities bilaterally. There are multiple dry, punctate eschars in the right gaiter area. There are multiple small excoriations in the left gaiter area. Slight erythema is noted in the left gaiter area in association with superficial excoriations. This will bear serial monitoring, to determine whether there is an evolving cellulitis. Pedal pulses are strong by Doppler signal assessment. Neuro oriented x3, CN's II-XII intact bilaterally and moves all extremities Sensorium / Orientation: awake, alert, oriented to person, oriented to place and oriented to time Psych Appearance: grossly normal and appropriate Attitude: calm Activity / Motor Behavior: appropriate eye contact Speech: normal speech Mood & Affect: euthymic mood Thought Process: normal thought process Thought Content: normal thought content Attention / Concentration: attention grossly intact Debridement Note Debridement Note No debridement was completed: No debridement was completed today Post-Debridement Measurements and Additional Note: Post-Debridement Measurements/Treatment - Nurse 1 - General Ulcer Assessment Start: 12/21/22 09:38 Freq: Status: Active Protocol: [email or web address] Activity Type Activity Date Activity User E-sign Co-sign Detail Recorded Client Recorded Date Recorded By Document 12/21/22 09:38 [id number] 12/21/22 09:51 DL 12/21/22 09:38 - Today's Visit Information Type of service Follow-up Visit (Physician/[employer] ATTENDANT ) Arrival Mode Ambulatory, Walker Transfer Assistance None Patient Identification Verified (Name & Yes ) Patient Requires Transmission-Based No Precautions Vital Signs Temperature (97.8 F-99.1 F) 97.5 F L Temperature Source Temporal Pulse Rate (60-100) 59 L Pulse Location Monitor Respiratory Rate (12-18) 18 Respiratory rate source Observation Blood Pressure (90/60-120/80) 157/67 H Blood Pressure Mean 97 Source Monitor History Since Last Visit- (Skip if this is Patient's initial visit) Have you changed medications since your No last visit? Any new allergies or adverse reactions No Had a fall/change in ADL's that may No increase risk of falls Signs or symptoms of abuse and/or No neglect since last visit Have you been in the hospital since your No last visit? Has dressing in place as prescribed No Has compression in place as prescribed No Has offloadiing in place as prescribed N/A Experienced any changes in pain level or No management Pain Scale: 0-10 Numeric Is Patient Pain Free? Yes WC - Nurse 1 - General Ulcer Measurement Start: 12/21/22 09:38 Freq: Status: Active Protocol: Activity Type Activity Date Activity User E-sign Co-sign Detail Recorded Client Recorded Date Recorded By Document 12/21/22 09:38 DL [id number] 12/21/22 09:51 DL 12/21/22 09:38 Wound Center Nurse 1 #7 L Med LE Cluster -Current Size (cm) - Length 9.5 -Current Size (cm) - Width 4.1 -Current Size (cm) - Depth 0.1 -Total Square Cm 38.95 -Photo Taken Yes -Exudate Amt Small -Exudate Type Serosanguineous -Wound Margin Indistinct, Non -Visible -Granulation Amt Large (67-100%) -Granulation Quality [place] -Necrosis Amt Small (1-33%) -Necrotic Tissue Type Adherent Slough -Structure Exposed N/A -Texture (Jessica-wound Skin Appearance) Scarring -Moisture (Jessica-wound Skin Appearance) Dry/Scaly -Color (Jessica-wound Skin Appearance) Hemosiderin Staining -Temperature (Jessica-wound Skin No Abnormality Appearance) (Pt Warm) -Tenderness on Palpation (Jessica-wound No Skin Appearance) -Ulcer Cleansing Soap and Water -Foul Odor after Cleansing No -Anesthetic Used 4% Lidocaine Solution #6 L Man Cluster -Current Size (cm) - Length 15 -Current Size (cm) - Width 6 -Current Size (cm) - Depth 0.1 -Total Square Cm 90 -Photo Taken Yes -Exudate Amt None Present -Wound Margin Distinct, Outline Attached -Granulation Amt Large (67-100%) -Granulation Quality [place],Red -Necrosis Amt None Present (0 %) -Structure Exposed N/A -Texture (Jessica-wound Skin Appearance) Scarring -Moisture (Jessica-wound Skin Appearance) Dry/Scaly -Color (Jessica-wound Skin Appearance) Erythema -Tenderness on Palpation (Jessica-wound No Skin Appearance) -Ulcer Cleansing Soap and Water -Anesthetic Used 4% Lidocaine Solution, Cetacaine Right Calf (cm) 35.5 Right Ankle (cm) 25.5 Left Calf (cm) 39.1 Left Ankle (cm) 24 Assessment/Plan Assessment/Plan (1) Bilateral leg ulcer: CODE(S): L97.919 - Non-pressure chronic ulcer of unspecified part of right lower leg with unspecified severity; L97.929 - Non-pressure chronic ulcer of unspecified part of left lower leg with unspecified severity QUALIFIERS: Non-pressure ulcer stage: with fat layer exposed Qualified Code(s): L97.912 - Non-pressure chronic ulcer of unspecified part of right lower leg with fat layer exposed; L97.922 - Non-pressure chronic ulcer of unspecified part of left lower leg with fat layer exposed (2) CKD (chronic kidney disease): CODE(S): N18.9 - Chronic kidney disease, unspecified (3) Acute on chronic heart failure: CODE(S): I50.9 - Heart failure, unspecified (4) Paroxysmal A-fib: CODE(S): I48.0 - Paroxysmal atrial fibrillation (5) Chronic anticoagulation: CODE(S): Z79.01 - skilled nursing (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 (6) Hyperlipidemia: CODE(S): E78.5 - Hyperlipidemia, unspecified (7) Essential hypertension: CODE(S): I10 - Essential (primary) hypertension (8) Non-rheumatic mitral valve stenosis: CODE(S): I34.2 - Nonrheumatic mitral (valve) stenosis (9) Nonrheumatic aortic (valve) stenosis: CODE(S): I35.0 - Nonrheumatic aortic (valve) stenosis (10) History of cerebrovascular accident: CODE(S): Z86.73 - Personal history of transient ischemic attack (TIA), and cerebral infarction without residual deficits (11) Pulmonary hypertension: CODE(S): I27.20 - Pulmonary hypertension, unspecified (12) Renal insufficiency: CODE(S): N28.9 - Disorder of kidney and ureter, unspecified (13) Type II diabetes mellitus: CODE(S): E11.9 - Type 2 diabetes mellitus without complications (14) Obstructive sleep apnea: CODE(S): G47.33 - Obstructive sleep apnea (adult) (pediatric) (15) Urinary incontinence, overflow: CODE(S): N39.490 - Overflow incontinence (16) Hypertriglyceridemia: CODE(S): E78.1 - Pure hyperglyceridemia (17) Failure to thrive: (18) Venous insufficiency: CODE(S): I87.2 - Venous insufficiency (chronic) (peripheral) (19) Osteoporosis: CODE(S): M81.0 - Age-related osteoporosis without current pathological fracture QUALIFIERS: Osteoporosis type: age-related Presence of current pathological fracture: without current pathological fracture Qualified Code(s): M81.0 - Age-related osteoporosis without current pathological fracture (20) Debility: CODE(S): R53.81 - Other malaise (21) History of back surgery: CODE(S): Z98.890 - Other specified postprocedural states (22) History of carpal tunnel release: CODE(S): Z98.890 - Other specified postprocedural states (23) History of hysterectomy: CODE(S): Z90.710 - Acquired absence of both cervix and uterus (24) History of left elbow replacement: CODE(S): Z96.622 - Presence of left artificial elbow joint (25) History of amputation of finger of right hand: CODE(S): Z89.021 - Acquired absence of right finger(s) PLAN: Plan This is a 72-year-old diabetic female with multiple pre-existing medical problems, which are listed herein. She initially presented with multiple small, superficial ulcerations and eschars in her lower extremities bilaterally. 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 Picking and scratching at her ulcerations was strongly discouraged. The patient has been urged to elevate her lower extremities is much as possible. Elevation is to be to heart level, or higher. She is to continue sleeping on a flat mattress at night. Elevation is to occur during daytime hours as well. Prolonged idle sitting has been discouraged. Activity has been encouraged. She has been treated for MRSA infection in the recent past. Therefore, we prescribed mupirocin ointment 2% for intranasal use. It was applied intranasally twice daily for 5 days. In addition, the patient was instructed to obtain Hibiclens 4% soap, and to shower daily using Hibiclens for a total of 7 days. Several weeks ago, the patient was noted to be completely healed, and was discharged. However, she returned with multiple new eschars and ulcerations in both lower extremities. On the right, there are multiple, small dry eschars. On the left, eschars are present, with several small superficial excoriations. Given the patient's propensity to pick and scratch, we are to once again reinitiate wraps to the lower extremities as had been implemented previously. A 3M 2 layer compression wrap will be applied to the right lower extremity. A similar wrap will be applied to the left lower extremity, with Promogran topically on the superficial excoriations. These 2 layer compression wraps will be changed twice weekly. The patient is to return in 1 week for reassessment. It is hoped that the presence of compression wraps on the lower extremities on a continual basis will prevent the patient from scratching and picking and perpetuating her wounds. A prescription had been provided for graduated compression stockings of 15 to 20 mmHg compression, to be worn on a daily basis. However, the patient never purchased the compression stockings. She has been encouraged to follow-up with her gasoline truck crane operator, Dr. Wayne Spencer, relative to a callus on her right great toe, which shows no sign of infection. Total time: 28 minutes
== END 2023-01-13 23:59 | disposition home or self-care (01) ==
LOC: WC 09:28
PROVIDERS: PCP Internal Medicine; Referring Provider Internal Medicine; Visit Provider Surgery
DX: L97.912 Non-pressure chronic ulcer of unspecified part of right lower leg with fat layer exposed (principal); L97.922 Non-pressure chronic ulcer of unspecified part of left lower leg with fat layer exposed; I50.9 Heart failure, unspecified; I13.0 Hypertensive heart and chronic kidney disease with heart failure and stage 1 through stage 4 chronic kidney disease, or unspecified chronic kidney disease; I27.20 Pulmonary hypertension, unspecified; E11.22 Type 2 diabetes mellitus with diabetic chronic kidney disease; I48.0 Paroxysmal atrial fibrillation; N18.32 Chronic kidney disease, stage 3b; M79.89 Other specified soft tissue disorders; R60.0 Localized edema; M54.9 Dorsalgia, unspecified; R53.81 Other malaise; I87.2 Venous insufficiency (chronic) (peripheral); E78.1 Pure hyperglyceridemia; F41.9 Anxiety disorder, unspecified; G89.29 Other chronic pain; G47.33 Obstructive sleep apnea (adult) (pediatric); R62.7 Adult failure to thrive; M81.0 Age-related osteoporosis without current pathological fracture; N39.490 Overflow incontinence; I34.2 Nonrheumatic mitral (valve) stenosis; F32.A Depression, unspecified; Z79.01 Long term (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; Z79.82 Long term (current) use of aspirin; Z79.84 Long term (current) use of oral hypoglycemic drugs; Z79.899 Other long term (current) drug therapy; Z86.14 Personal history of Methicillin resistant Staphylococcus aureus infection; Z87.891 Personal history of nicotine dependence; Z90.710 Acquired absence of both cervix and uterus; Z89.021 Acquired absence of right finger(s)
CPT/HCPCS: 29581; 99213; G0463

== ENCOUNTER 2023-04-07 14:35 | Emergency (ER) | payer MEDICARE, SELFPAY ==
[2023-04-07 14:37] VITALS: BP 90/59; PULSE 70; RESP 25; TEMP 37.1; O2SAT 93; BMI 38.0
--- NOTE | 2023-04-07 14:41 | ED.VIS.CHEST ---
HPI History of Present Illness Chief Complaint: Palpitations [facility] Medical History Abnormal mammogram of right breast Abscess of right middle finger Acute kidney injury Acute on chronic heart failure Alcohol use Anemia Anxiety Anxiety and depression Arthritis Atrial fib/flutter, transient Atrial fibrillation Back pain Bacteremia Bilateral leg ulcer Breast lump Burn injury of skin of finger Cardiology follow-up encounter Chronic anticoagulation Chronic back pain Chronic cough CKD (chronic kidney disease) COVID-19 vaccine series completed CPAP (continuous positive airway pressure) dependence CVA (cerebral vascular accident) Depression Depression with anxiety Diabetes mellitus Dietary restriction DKA (diabetic ketoacidoses) Elevated brain natriuretic peptide (BNP) level Essential hypertension Finger infection Flu vaccine need Former smoker Health care maintenance History of cerebrovascular accident History of echocardiogram History of edema History of stress test History of UTI Hyperlipidemia Hypertension Intertrigo Irregular heartbeat 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 MRSA infection 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 without evidence of necrosis Non-rheumatic mitral valve stenosis Nonrheumatic aortic (valve) stenosis Osteoarthritis Osteomyelitis of finger of right hand Osteoporosis Overactive bladder Pancreatitis Paroxysmal A-fib Paroxysmal atrial fibrillation Paroxysmal atrial fibrillation with RVR Post-menopausal Preoperative evaluation to rule out surgical contraindication Stage 3b chronic kidney disease (CKD) Subtherapeutic international normalized ratio (INR) Tachycardia Urinary incontinence, overflow Venous insufficiency Vision problems Walker as ambulation aid Weakness Home Medications acetaminophen 325 mg capsule 650 mg PO TID Pain 12/02/21 [History Last Taken 07/08/22] amlodipine 10 mg tablet 10 mg PO DAILY BP #90 tabs 09/07/22 [Rx Last Taken Unknown] ascorbic acid (vitamin C) 500 mg tablet (Vitamin C) 500 mg PO DAILY vitamin #90 tabs 09/07/22 [Rx Last Taken Unknown] cholecalciferol (vitamin D3) 50 mcg (2,000 unit) capsule 50 mcg PO DAILY vitamin #90 caps 09/07/22 [Rx Last Taken Unknown] ferrous sulfate 325 mg (65 mg iron) tablet 325 mg PO DAILY Supplement #90 tabs 09/07/22 [Rx Last Taken Unknown] metformin 1,000 mg tablet 1,000 mg PO BID DM #180 tabs 09/07/22 [Rx Last Taken Unknown] multivitamin 1 tab PO DAILY SUPPLEMENT #90 tabs 09/07/22 [Rx Last Taken Unknown] oxybutynin chloride 15 mg tablet,extended release 24 hr 15 mg PO BID bladder #180 tabs 09/07/22 [Rx Last Taken Unknown] sertraline 100 mg tablet (Zoloft) 100 mg PO DAILY anxiety #90 tabs 09/07/22 [Rx Last Taken Unknown] diltiazem HCl 240 mg capsule,extended release 24 hr (Cardizem CD) 240 mg PO DAILY heart 09/09/22 [History Last Taken Unknown] WOUND CARE #1 ea 10/06/22 [Rx Last Taken Unknown] apixaban 5 mg tablet 5 mg PO BID blood thinner #180 tabs 10/15/22 [Rx Last Taken Unknown] metoprolol tartrate 100 mg tablet 100 mg PO BID #60 tabs 11/18/22 [Rx Last Taken Unknown] furosemide 20 mg tablet 20 mg PO DAILY #90 tabs 11/22/22 [Rx Last Taken Unknown] glimepiride 4 mg tablet 4 mg PO DAILY dm 04/07/23 [History Last Taken Unknown] Allergy/AdvReac Type Severity Reaction Status Date / Time fosinopril [From Monopril] Allergy Unknown Other Verified 04/07/23 14:36 pioglitazone AdvReac Other Verified 04/07/23 14:36 Family History Father Diabetes High cholesterol Heart disease Melanoma Hypertension Mother Heart disease Brother AIDS (acquired immune deficiency syndrome) Surgical History History of amputation of finger of right hand History of back surgery History of back surgery History of carpal tunnel release History of carpal tunnel release History of hand surgery History of hysterectomy History of hysterectomy History of left elbow replacement History of left elbow replacement History of surgical amputation of finger of right hand Hx of colonoscopy S/P hysterectomy S/P ORIF (open reduction internal fixation) fracture Status post surgical amputation of finger of right hand Social History household members: none Smoking Status: Former smoker how long ago did patient quit smokin years ago alcohol intake: current alcohol intake frequency: holidays/special occasions only substance use type: does not use what type of physical activity do you participate in: other details: aquasize EXAM Physical Exam Const Vital Signs: 04/07/23 14:37 04/07/23 14:41 04/07/23 15:02 Temperature 98.7 F Temperature Source Oral Pulse Rate 70 Respiratory Rate 25 H Respiratory Effort Normal Non-Labored Blood Pressure 90/59 L Blood Pressure Mean 69 Pulse Ox 93 91 Oxygen Delivery Method Room Air Room Air 04/07/23 15:02 04/07/23 16:04 Temperature Temperature Source Pulse Rate 74 69 Respiratory Rate 27 H 30 H Respiratory Effort Blood Pressure 113/80 136/75 H Blood Pressure Mean 91 95 Pulse Ox 91 94 Oxygen Delivery Method Room Air [facility] Narrative Medical decision making narrative: HISTORY OF PRESENT ILLNESS: 73-year-old female here with concern for palpitations. Per nursing facility patient had rapid heart rate in the setting of A-fib. Patient states she feels fine has no complaints is not for lightheaded. She denies any chest pain shortness of breath, lightheadedness. No bleeding diathesis. No vomiting or nausea. No abdominal pain. No focal weakness. States has been compliant with all of her medicines including her blood thinner. REVIEW OF SYSTEMS: Pertinent positives: Palpitations Pertinent negatives: Chest pain, shortness of breath, lightheadedness, bleeding diathesis, vomiting, nausea PHYSICAL EXAM: Nursing triage notes reviewed, Vital signs reviewed Constitutional: please see [facility] HENT: MMM Eyes: Pupils equal round and reactive to light, Extraocular muscles intact Neck: No stridor, no JVD, full neck ROM Lungs: Clear to auscultation, No wheezing or rales. No increased work of breathing, no conversational dyspnea, no accessory muscle use, no nasal flaring. No respiratory distress noted Heart: Regular rate and rhythm, No murmurs, No rubs and No gallops, 2+ distal pulses (radial, femoral, posterior tibial) in all extremities Abdomen: Soft, there is no tenderness, rigidity, rebound or guarding, no obvious peritoneal signs, no palpable pulsatile abdominal masses, no auscultated abdominal bruit : No CVAT Extremities: No edema Neuro: No focal neurological deficits, cranial nerves II through XII intact, 5/5 strength in all extremities. Intact sensation to light touch in all extremities, 2+ reflexes bilateral patella tendons. Normal gait. No ataxia. Skin: No rash or lesions noted MEDICAL DECISION MAKING: Chief Complaint: Palpitations External records reviewed: Prior ED records reviewed. 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 Exam without focal cardiopulmonary maladies. After fluids patient blood pressure improved. I considered the following differential diagnosis: A-fib with RVR, electrolyte disturbance, anemia, myocardial ischemia ALL IMAGES (IF OBTAINED) HAVE BEEN PERSONALLY REVIEWED AND INTERPRETED BY MYSELF. EKG with rate controlled A-fib, normal axis, normal intervals, no STEMI CBC without leukocytosis, mild anemia, no thrombocytopenia BMP without evidence of significant electrolyte abnormalities, no anion gap, no acute kidney injury. Noted CKD. Troponin is negative, no evidence of myocardial ischemia I have personally reviewed the patient's chest x-ray. Chest x-ray shows no evidence of obvious pneumonia. Per radiologist read there is concern for left basilar infiltrate however patient no fever, no cough no leukocytosis, no signs of infectious etiology do not suspect patient has pneumonia at this time. The synthesis of the patient's labs images, vital sign assessment, history and physical exam are consistent with likely dehydration. I encouraged increased oral fluid intake. Patient was given 1 L normal saline with improvement in blood pressure. She is appropriate [facility]. The patient and/or family, caregivers express understanding. The patient and/or family, caregivers agrees with the plan. Shared decision making: I will have a discussion with the patient and or visitors regarding risk/benefits of further testing or admission. They will be made aware of of the risk/benefits inherent in this decision they will be given the opportunity to voice understanding. Total critical care time today provided was at least 0 minutes. This excludes separately billable procedures. Critical care time (if documented) is secondary to the patient having high probability of clinically significant/life threatening deterioration in the patient's condition which required my urgent intervention. Impression: 1. Hypotension 2. History of A-fib 3. History of CKD 4. Dehydration Dispo: Discharge back to nursing facility Lab Data Attestation: I reviewed the patient's lab results. Labs: Laboratory Results - last 24 hr 04/07/23 14:55 WBC 6.4 RBC 4.27 Hgb 11.7 L Hct 37.5 MCV 87.8 MCH 27.4 MCHC 31.2 L RDW Std Deviation 51.4 H RDW Coeff of Zee 15.9 H Plt Count 213 MPV 10.0 Immature Gran % (Auto) 0.300 Neut % (Auto) 75.5 H Lymph % (Auto) 11.9 L [place] % (Auto) 11.2 H Eos % (Auto) 0.8 Baso % (Auto) 0.3 Absolute Neuts (auto) 4.8 Absolute Lymphs (auto) 0.76 L Nucleated RBC % 0 Sodium 136 Potassium 4.4 Chloride 107 Carbon Dioxide 21.0 Anion Gap 8 BUN 31 H Creatinine 1.27 H Estim Creat Clear Calc 30.66 Est GFR (MDRD) Af Amer 53 L Est GFR (MDRD) Non-Af 44 L BUN/Creatinine Ratio 24.4 H Glucose 217 H Calcium 9.2 Troponin I High Sens 23 Radiography Diagnostic Testing: Clinical Impression(s) from Imaging Studies Chest X-Ray 04/07/23 15:05 IMPRESSION: Retrocardiac infiltrate in the left lung base suspected without effusion Right basilar atelectasis Follow-up recommended to assure resolution Electronically Signed: Pranay Navas MD at 15:23 EST Reading Location ID and State: [address] [place] [address] , Service support , Discharge Plan Triage Chief Complaint: Palpitations ED Provider: Sebastian Sesay Dx/Rx/DC Orders Instructions: ED AFIB, ED Low Blood Pressure, All Causes, ED Palpitations Prescriptions: No Action acetaminophen 325 mg capsule 650 mg PO TID diltiazem HCl [Cardizem CD] 240 mg capsule,extended release 24hr 240 mg PO DAILY glimepiride 4 mg tablet 4 mg PO DAILY amlodipine 10 mg tablet 10 mg PO DAILY Qty: 90 3RF ascorbic acid (vitamin C) [Vitamin C] 500 mg tablet 500 mg PO DAILY Qty: 90 3RF cholecalciferol (vitamin D3) 50 mcg (2,000 unit) capsule 50 mcg PO DAILY Qty: 90 3RF ferrous sulfate 325 mg (65 mg iron) tablet 325 mg PO DAILY Qty: 90 3RF metformin 1,000 mg tablet 1,000 mg PO BID Qty: 180 3RF multivitamin Tablet 1 tab PO DAILY Qty: 90 3RF oxybutynin chloride 15 mg tablet extended release 24hr 15 mg PO BID Qty: 180 1RF sertraline [Zoloft] 100 mg tablet 100 mg PO DAILY Qty: 90 3RF (DME) WOUND CARE See Rx Instructions .Route .MEDSUPPLY Qty: 1 0RF Rx Instructions: cleanse wound, apply moist silvercel and wrap with gauze apixaban 5 mg tablet 5 mg PO BID Qty: 180 3RF metoprolol tartrate 100 mg tablet 100 mg PO BID Qty: 60 11RF furosemide 20 mg tablet 20 mg PO DAILY Qty: 90 2RF Primary Care Provider: Sulma Reagan Referrals: Sulma Reaagn MD [Primary Care Provider] - Activity Restrictions/Additional Instructions: Thank you for trusting us with your care today! Please take Tylenol (2 pills, 650 mg), ibuprofen (2 pills, 400 mg) every 6 hours as needed for pain and fever control. Please increase your oral fluid intake. Please return to the emergency department if your symptoms change or worsen. Specifically if you develop palpitations, chest pain, you lose consciousness, develop shortness of breath, if your symptoms change or worsen in any way. Please follow with your primary care physician for further outpatient evaluation and management. Disposition Disposition: Home, Self Care
--- NOTE | 2023-04-07 14:44 | EKG12_ITS ---
Test Reason : SOB Blood Pressure : / mmHG Vent. Rate : 076 BPM Atrial Rate : 277 BPM P-R Int : 000 ms QRS Dur : 076 ms QT Int : 370 ms P-R-T Axes : -66 046 018 degrees QTc Int : 416 ms Atrial flutter with variable A-V block Abnormal ECG When compared with ECG of 11-SEP-2022 10:04, Atrial flutter has replaced Atrial fibrillation Vent. rate has decreased BY 38 BPM T wave inversion less evident in Inferior leads Confirmed by SHERIF CALLOWAY, MILDRED ([id number]), news video editor AMALIA MEJIA ([id number]) on 04/12/2023 7:56:55 AM Referred By: ISH/TELMA Confirmed By:MILDRED GORMAN MD
[2023-04-07] MEDS: 0.9% Normal Saline (1000mL) 1,000 ML 1000 ML IV (15:01)
[2023-04-07 15:02] VITALS: BP 113/80; PULSE 74; RESP 27; O2SAT 91
[2023-04-07 15:05] LABS: Absolute Lymphocyte Count 0.76 X10^3/uL (0.83-4.51); Absolute Neutrophil Count 4.8 X10^3/uL (2.0-7.7); Basophil# 0.02 X10^3/uL; Basophil% 0.3 % (0-1); Eosinophil# 0.05 X10^3/uL; Eosinophils% 0.8 % (0-5); Hematocrit 37.5 % (37-47); Hemoglobin 11.7 g/dL (12.0-15.0); Lymphocyte # 0.76 X10^3/ul (0.83-4.51); Lymphocyte % 11.9 % (19-41); Mean Corp Hgb Conc 31.2 g/dL (32-36); Mean Corpuscular Hgb 27.4 pg (27.0-32.0); Mean Corpuscular Volume 87.8 fL (81-99); Monocyte# 0.71 X10^3/uL; Monocyte% 11.2 % (0-10); NRBC Flagged by Analyzer 0 % (0-5); Neutrophil % 75.5 % (47-70); Platelet Count 213 K/mm3 (150-450); RBC Distribution Width CV 15.9 % (11.6-14.6); RBC Distribution Width SD 51.4 fl (35.1-43.9); Red Blood Count 4.27 M/mm3 (4.2-5.4); White Blood Count 6.4 K/mm3 (4.4-11.0)
--- NOTE | 2023-04-07 15:05 | RAD_ITS ---
STUDY: X-RAY CHEST REASON FOR EXAM: Female, 73 years old. chest pain TECHNIQUE: Single AP portable view of the chest. COMPARISON: 09/13/2022 FINDINGS: EKG leads overlie the chest Lungs are expanded with bibasilar opacifications. Air bronchograms noted in the retrocardiac airspace suggesting infiltrate in the left lung base. No demonstrated effusions. Normal size heart. Normal mediastinum and nevin. Normal visualized pulmonary arteries. Normal visualized aortic arch and descending thoracic aorta. Normal visualized thoracic spine. Normal visualized ribs, clavicles, and shoulders. There is no demonstrated abnormality of the visualized soft tissue structures of the upper abdomen. RAD/Chest 1 View (Portable) IMPRESSION: Retrocardiac infiltrate in the left lung base suspected without effusion Right basilar atelectasis Follow-up recommended to assure resolution Electronically Signed: Pranay Navas MD at 15:23 EST ,
[2023-04-07 15:21] LABS: Anion Gap 8 (5-15); BUN 31 mg/dL (7-18); BUN/Creat Ratio 24.4 RATIO (10-20); Calcium,Total 9.2 mg/dL (8.5-10.1); Chloride 107 mmol/L (98-107); Creatinine, Serum 1.27 mg/dL (0.55-1.02); EST Glomerular Filtration Rate 44 mL/min (>60); Est Glom Filt Rate - Afr Amer 53 mL/min (>60); Estimated Creatinine Clearance 30.66 ml/min; Glucose 217 mg/dL (74-106); Potassium 4.4 mmol/L (3.5-5.1); Sodium Level 136 mmol/L (136-145); Troponin-I HS 23 pg/mL (3.0-54.0)
[2023-04-07 16:04] VITALS: BP 136/75; PULSE 69; RESP 30; O2SAT 94
--- NOTE | 2023-04-07 16:19 | ED.RN ---
MARCUS CALLED ETA 20 MIN ([id number])
== END 2023-04-07 17:35 | disposition home or self-care (01) ==
PROVIDERS: Emergency Provider Emergency Medicine; PCP Internal Medicine; Visit Provider Emergency Medicine
DX: I48.0 Paroxysmal atrial fibrillation (principal); I13.0 Hypertensive heart and chronic kidney disease with heart failure and stage 1 through stage 4 chronic kidney disease, or unspecified chronic kidney disease; I50.89 Other heart failure; E11.22 Type 2 diabetes mellitus with diabetic chronic kidney disease; N18.32 Chronic kidney disease, stage 3b; E78.5 Hyperlipidemia, unspecified; I95.9 Hypotension, unspecified; E86.0 Dehydration; Z87.891 Personal history of nicotine dependence; Z79.899 Other long term (current) drug therapy; Z79.84 Long term (current) use of oral hypoglycemic drugs; F32.A Depression, unspecified; Z79.01 Long term (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; Z90.710 Acquired absence of both cervix and uterus; Z96.622 Presence of left artificial elbow joint
CPT/HCPCS: 71045; 80048; 84484; 85025; 93005; 96360; 99285; J7030; A4216

== ENCOUNTER → 2023-07-05 | Outpatient (CLI) | payer MEDICARE, SELFPAY ==
--- NOTE | 2023-07-05 10:03 | CDU_ITS ---
Reason For Study: Retinal Ischemia Rt. Velocities/BP Lt. Velocities/BP Prox CCA 76.2/13.5 cm/sec. Prox CCA 61.9/11.3 cm/sec. Mid CCA 82.8/15.7 cm/sec. Mid CCA 67.4/16.8 cm/sec. Dist CCA 64.1/12.4 cm/sec. Dist CCA 76.2/13.5 cm/sec. Prox ICA 57.5/12.4 cm/sec. Prox ICA 87.2/17.9 cm/sec. Mid ICA 59.7/14.6 cm/sec. Mid ICA 77.3/19.0 cm/sec. Dist ICA 63.0/15.6 cm/sec. Dist ICA 76.2/17.7 cm/sec. Rt. ICA/CCA = 0.8. Lt. ICA/CCA = 1.3. Prox ECA 89.4/10.2 cm/sec. Prox ECA 83.9/8.0 cm/sec. Rt. Vert. 48.7/14.6 cm/sec. Lt. Vert. 30.1/11.6 cm/sec. Right Extracranial There is homogeneous, smooth atherosclerotic plaque noted in the right common carotid artery. There is intimal thickening but no significant atherosclerotic plaque noted in the right internal carotid artery. There is intimal thickening but no significant atherosclerotic plaque noted in the right external carotid artery. Antegrade flow is noted in the right vertebral artery. Left Extracranial There is homogeneous, smooth atherosclerotic plaque noted in the left common carotid artery. There is heterogeneous, irregular atherosclerotic plaque noted in the left internal carotid artery. There is heterogeneous, irregular atherosclerotic plaque noted in the left external carotid artery. Antegrade flow is noted in the left vertebral artery. Procedure Carotid Duplex [id number]. This is a Carotid Duplex examination using B-mode, color flow and specral Doppler. The exam was diagnostic. Exam performed in department. VL/Carotid Duplex Ultrasound Interpretation Summary Intimal thickening at the proximal right internal carotid artery with less than 50% stenosis Less than 50% stenosis right external carotid artery Irregular plaque at the proximal left internal carotid artery with less than 50 % stenosis Less than 50% stenosis left external carotid artery Patent antegrade vertebral arteries bilaterally Ordering Physician: Román Suggs Referring Physician: Sulma Reagan Performed By: Sekou Bueno RVT
== END | disposition home or self-care (01) ==
PROVIDERS: PCP Internal Medicine; Referring Provider Ophthalmology; Visit Provider Ophthalmology
DX: H35.82 Retinal ischemia (principal)
CPT/HCPCS: 93880

== ENCOUNTER → 2023-09-14 | Outpatient (CLI) | payer MEDICARE, SELFPAY | END | disposition home or self-care (01) | PROVIDERS: PCP Internal Medicine; Referring Provider Internal Medicine Pulmonary Disease; Visit Provider Internal Medicine Pulmonary Disease | DX: G47.33 Obstructive sleep apnea (adult) (pediatric) (principal) | CPT/HCPCS: 94060; 94726; 94729 ==

== ENCOUNTER → 2023-09-26 | Outpatient (CLI) | payer MEDICARE, SELFPAY ==
[2023-09-26 12:06] VITALS: PULSE 68; PULSE 70; PULSE 88; PULSE 98; PULSE 99; O2SAT 92; O2SAT 93; O2SAT 94; O2SAT 95
--- NOTE | 2023-09-27 10:17 | PCM.PSN.6M ---
PSN 6 Minute Walk Test 6 Minute Walk Test 6 Minute Walk Test: 6 Minute Walk Test PSN:6-Minute Walk Test Start: 09/26/23 12:05 Freq: Status: Active Protocol: [id number].6MINW Document 09/26/23 12:06 RUT (Rec: 09/26/23 12:09 RUT [id number]) 6 Minute Walk Test Date Performed 09/26/23 Time Performed 11:30 Height 5 ft 1 in Weight: 196 lb Weight in Pounds 196.[address]: Reji Raymond V Assistive device used: Walker Pre-test Oxygen Delivery Method Room Air Pulse Ox (%) 93 Pulse Rate (60-100 beats/min) 68 Dyspnea Cassandra Scale (0-10) 0 Exertion Cassandra Scale (6-20) 6 1st minute Oxygen Delivery Method Room Air Pulse Ox (%) 95 Pulse Rate (60-100 beats/min) 88 2nd minute Oxygen Delivery Method Room Air Pulse Ox (%) 93 Pulse Rate (60-100 beats/min) 98 3rd minute Oxygen Delivery Method Room Air Pulse Ox (%) 94 Pulse Rate (60-100 beats/min) 99 4th minute Oxygen Delivery Method Room Air Pulse Ox (%) 92 Pulse Rate (60-100 beats/min) 99 5th minute Oxygen Delivery Method Room Air Pulse Ox (%) 94 Pulse Rate (60-100 beats/min) 99 6th minute Oxygen Delivery Method Room Air Pulse Ox (%) 94 Pulse Rate (60-100 beats/min) 98 Dyspnea Cassandra Scale (0-10) 3 Exertion Cassandra Scale (6-20) 14 Post-test Oxygen Delivery Method Room Air Pulse Ox (%) 95 Pulse Rate (60-100 beats/min) 70 Full Laps Walked 5 Partial Lap, Number of Tiles Walked 16 Total Distance Walked (ft) 311 Interpretation Interpretation: The patient ambulated 311 feet over the course of 6 minutes beginning on room air with the use of a walker. Pretesting oxygen saturation was noted to be 93% on room air. With ambulation, the radha oxygen saturation was 92%. Although there was evidence of impaired walk distance, there was no significant exertional oxygen desaturation. Recommendations Recommendations: There is no indication for the use of supplemental oxygen at this time.
== END | disposition home or self-care (01) ==
LOC: PSN 11:12
PROVIDERS: PCP Internal Medicine; Referring Provider Internal Medicine Pulmonary Disease; Visit Provider Internal Medicine Pulmonary Disease
DX: G47.33 Obstructive sleep apnea (adult) (pediatric) (principal)
CPT/HCPCS: 94618

== ENCOUNTER → 2023-12-07 | Outpatient (CLI) | payer MEDICARE, SELFPAY ==
[2023-12-07 12:15] LABS: Absolute Lymphocyte Count 1.33 X10^3/uL (0.83-4.51); Absolute Neutrophil Count 6.2 X10^3/uL (2.0-7.7); Basophil# 0.04 X10^3/uL; Basophil% 0.5 % (0-1); Eosinophil# 0.33 X10^3/uL; Eosinophils% 3.9 % (0-5); Hemoglobin 12.2 g/dL (12.0-15.0); Lymphocyte # 1.33 X10^3/ul (0.83-4.51); Lymphocyte % 15.8 % (19-41); Mean Corp Hgb Conc 32.1 g/dL (32-36); Mean Corpuscular Hgb 28.2 pg (27.0-32.0); Mean Corpuscular Volume 87.8 fL (81-99); Mean Platelet Vol. 9.7 fl (6.2-12.0); Monocyte# 0.52 X10^3/uL; Monocyte% 6.2 % (0-10); NRBC Flagged by Analyzer 0 % (0-5); Neutrophil # 6.17 X10^3/uL (2.7-7.7); Neutrophil % 73.1 % (47-70); Platelet Count 280 K/mm3 (150-450); RBC Distribution Width CV 13.8 % (11.6-14.6); RBC Distribution Width SD 44.1 fl (35.1-43.9); Red Blood Count 4.33 M/mm3 (4.2-5.4); White Blood Count 8.4 K/mm3 (4.4-11.0)
[2023-12-07 12:33] LABS: ALB/GLOB Ratio 0.7 RATIO (0.9-2.4); AST(SGOT) 21 U/L (15-37); Alanine Aminotransfer ALT/SGPT 24 U/L (13-56); Albumin, Serum 3.4 g/dL (3.2-5.0); Alkaline Phosphatase 86 U/L (45-117); Anion Gap 7 (5-15); BUN 23 mg/dL (7-18); BUN/Creat Ratio 19.8 RATIO (10-20); Calcium,Total 9.5 mg/dL (8.5-10.1); Chloride 104 mmol/L (98-107); Cholesterol 250 mg/dL (200); Creatinine, Serum 1.16 mg/dL (0.55-1.02); EST Glomerular Filtration Rate 49 mL/min (>60); Est Glom Filt Rate - Afr Amer 59 mL/min (>60); Globulin 4.6 g/dL (2.2-4.2); Glucose 217 mg/dL (74-106); High Density Lipoprotein 49 mg/dL; Potassium 4.7 mmol/L (3.5-5.1); Sodium Level 136 mmol/L (136-145); Triglycerides 199 mg/dL; Very Low Density Lipoprotein 40 mg/dL (5-40)
== END | disposition home or self-care (01) ==
LOC: BIMLAB 11:13
PROVIDERS: PCP Internal Medicine; Referring Provider Physician Assistant; Visit Provider Physician Assistant
DX: I12.9 Hypertensive chronic kidney disease with stage 1 through stage 4 chronic kidney disease, or unspecified chronic kidney disease (principal); N18.9 Chronic kidney disease, unspecified; E78.5 Hyperlipidemia, unspecified
CPT/HCPCS: 36415; 80053; 80061; 85025

== ENCOUNTER 2023-12-26 10:00 | Outpatient (RCR) | payer MEDICARE, SELFPAY ==
--- NOTE | 2023-12-26 10:53 | HP.PTEVAL_ITS ---
Patient's Visit Information Visit Information Visit Information: JOSELINE RIDDLE is a 73 year old F referred to Physical Therapy by TERA Barnett with a diagnosis of Debility. Date of Evaluation: 12/26/23 Physical Therapist: RAY Rasmussen Visit Plan Frequency: 2x /Week Duration: 2 Months Plan: 2X/ week for 8 weeks for endurance, gait training, walking endurance, LE strength, functional strength with HEP. Pt is concerned about co-pay and may only be able to come on a limited basis based on the van schedule as she is home bound other than Dr kennedy per her subjective Subjective Subjective: Pt shattered her R hip a year ago and she lives on one floor in her house and she just turned around and just fell. She had some PT but it did not go very well. She was using the walker somewhat before the fall. She just can't walk long distances...she is not coordinated with her back and her legs. She uses the walker at all times now. She does drive. She has to use hospital transportation. She has weakness in her legs. She has a house with 5 levels but she is not going up any of them. She wants to be stronger, be able to walk without having to rest so much. She lives a lone. She has a hospital bed in her living room. She has to be really careful how she moves. Pain Back pain: Pain Intensity (Out of 10): 4 Objective Objective: Gait: walks with a rollator without a seat with flexed trunk, small steppage steps (does not citrus picker feet), WBOS. She needed to sit and rest once and stood once to rest on the way back to the treatment rooms (118 feet). On the way out she rested just as above but also tripped on her L foot and had the walker to brace herself Sit to stand: able to stand up using her UE's to get out of the chair. LE MMT: R hip flex 7.3 and L hip flex 7.8 R knee ext 15.2 and l 12.5 R knee flex 10.5 and L 10 Standing heel and toe raises X 5 each with decrease ROM Pt is able to stand with EO and EC X 30 seconds with some small sway. She is unsteady standing with no UE support with EO with horizontal head turns. Balance/Special Test Scores Lower Extremity Functional Score: 28 Goals Goal 1:: I HEP Goal Time Frame: 6-8 Weeks Goal 2:: Be able to walk 118 feet with no rest break and more smooth gait pattern Goal Time Frame: 6-8 Weeks Goal 3:: Be able to get out of a chair using one arm with smooth motion X 5 without needing a rest break Rehabilitation Potential Rehabilitation Potential: Good Anticipated Interventions Patient/Client Instruction: Educate patient on: Condition and Plan of Care For the Purpose of:: To decrease pain, To increase ROM, To improve nutrient delivery to tissue, To improve muscle performance and motor function, To improve ability to perform ADL's, To increase tolerance to activity/condition/position, To improve performance and independence with ADL's, To decrease level of supervision to perform tasks, To improve ability of physical actions for home/community/work/leisure, To improve gait and locomotor functions, To increase flexibility/ROM, To improve endurance, To improve balance and To improve safety with gait Therapeutic Exercise to Include: Strength training, Endurance training, Balance training, Body mechanics, Postural training, Flexibilty training, Gait and locomotor training, Neuromotor development and Dynamic Lumbar Stabilization For the Purpose of:: To increase ROM, To improve nutrient delivery to tissue, To improve muscle performance and motor function, To improve ability to perform ADL's, To increase tolerance to activity/condition/position, To improve performance and independence with ADL's, To decrease level of supervision to perform tasks, To improve ability of physical actions for home/community/work/leisure, To improve gait and locomotor functions, To improve health of tissue, To decrease soft tissue restriction, To increase flexibility/ROM, To improve endurance, To improve balance and To improve safety with gait Functional Training to Include: Gait training For the Purpose of:: To improve gait and locomotor functions Text: Thank you for the opportunity to evaluate your patient. For Medicare and Medicare HMO plans, please review the plan of care and approve it. It will need to be FAXED BACK to us at [phone] for Medicare purposes. For Medicare only, by signing this I certify the plan of care. Please let me know if there are questions or concerns regarding this plan of care. Physician Signature: Date:
--- NOTE | 2024-03-20 07:31 | HP.PT.NRP ---
Patient Information Patient Information: JOSELINE RIDDLE was seen in my office for initial evaluation on 12/26/23. The following Plan of Care was established for this patient: POC Established Initial Frequency: 2x /Week Initial Duration: 2 Months Anticipated Interventions Patient/Client Instruction: Educate patient on: Condition and Plan of Care For the Purpose of:: To decrease pain, To increase ROM, To improve nutrient delivery to tissue, To improve muscle performance and motor function, To improve ability to perform ADL's, To increase tolerance to activity/condition/position, To improve performance and independence with ADL's, To decrease level of supervision to perform tasks, To improve ability of physical actions for home/community/work/leisure, To improve gait and locomotor functions, To increase flexibility/ROM, To improve endurance, To improve balance and To improve safety with gait Therapeutic Exercise to Include: Strength training, Endurance training, Balance training, Body mechanics, Postural training, Flexibilty training, Gait and locomotor training, Neuromotor development and Dynamic Lumbar Stabilization For the Purpose of:: To increase ROM, To improve nutrient delivery to tissue, To improve muscle performance and motor function, To improve ability to perform ADL's, To increase tolerance to activity/condition/position, To improve performance and independence with ADL's, To decrease level of supervision to perform tasks, To improve ability of physical actions for home/community/work/leisure, To improve gait and locomotor functions, To improve health of tissue, To decrease soft tissue restriction, To increase flexibility/ROM, To improve endurance, To improve balance and To improve safety with gait Functional Training to Include: Gait training For the Purpose of:: To improve gait and locomotor functions Last Seen Last Seen: This patient was last seen in our office 12/26/23. Pertinent comments regarding their Physical therapy will appear below: DC PT as pt did not schedule past her [facility]. At this point I will be discontinuing this patient from physical therapy. I would be happy to see this patient again in the future if found appropriate by the physician. Thank you! Tiff Doss, RAY Balance/Gait/Functional tests Balance/Special Test Scores Lower Extremity Functional Score: 28
== END 2023-12-26 19:00 | disposition home or self-care (01) ==
LOC: PT 10:00
PROVIDERS: PCP Internal Medicine; Referring Provider Physician Assistant; Visit Provider Physician Assistant
DX: R53.81 Other malaise (principal)
CPT/HCPCS: 97162

== ENCOUNTER → 2024-05-21 | Outpatient (CLI) | payer MEDICARE, SELFPAY ==
[2024-05-21 17:02] LABS: ALB/GLOB Ratio 0.8 RATIO (0.9-2.4); AST(SGOT) 20 U/L (15-37); Alanine Aminotransfer ALT/SGPT 24 U/L (13-56); Albumin, Serum 3.6 g/dL (3.2-5.0); Alkaline Phosphatase 85 U/L (45-117); Anion Gap 7 (5-15); BUN 27 mg/dL (7-18); BUN/Creat Ratio 22.3 RATIO (10-20); Calcium,Total 9.8 mg/dL (8.5-10.1); Chloride 106 mmol/L (98-107); Cholesterol 176 mg/dL (200); Creatinine, Serum 1.21 mg/dL (0.55-1.02); EST Glomerular Filtration Rate 46 mL/min (>60); Est Glom Filt Rate - Afr Amer 56 mL/min (>60); Globulin 4.3 g/dL (2.2-4.2); Glucose 186 mg/dL (74-106); High Density Lipoprotein 66 mg/dL; Potassium 4.8 mmol/L (3.5-5.1); Protein, Total 7.9 g/dL (6.4-8.2); Sodium Level 138 mmol/L (136-145); Triglycerides 125 mg/dL; Very Low Density Lipoprotein 25 mg/dL (5-40)
[2024-05-21 17:57] LABS: Hemoglobin A1c 7.2 % (3.8-5.6)
== END | disposition home or self-care (01) ==
LOC: BIMLAB 14:48
PROVIDERS: PCP Internal Medicine; Referring Provider Internal Medicine; Visit Provider Internal Medicine
DX: I10 Essential (primary) hypertension (principal); E11.69 Type 2 diabetes mellitus with other specified complication; E78.5 Hyperlipidemia, unspecified
CPT/HCPCS: 36415; 80053; 80061; 83036

== ENCOUNTER → 2024-08-20 | Outpatient (CLI) | payer MEDICARE, SELFPAY ==
--- NOTE | 2024-08-20 11:53 | RAD_ITS ---
PROCEDURE: Right toe radiographs, three views 08/20/2024 REASON FOR EXAM: RIGHT FIFTH TOE ULCER TECHNIQUE: Three views of the right toes were obtained. COMPARISON: None available FINDINGS: Three views of the right foot/toes were obtained. Bones are osteopenic. No acute fracture or dislocation of the right foot. No gross bony destructive process. There are moderate degenerative changes of the interphalangeal joints and of the 1st MTP joint. No abnormal soft tissue gas densities RAD/Toe(s) Min 2 Views IMPRESSION: Osteopenia. No definite acute bony abnormality or bony destructive process of the right toes. Moderate degenerative changes as above, likely due to osteoarthritis. Reading Location: [facility]
[2024-08-20 13:09] LABS: Absolute Lymphocyte Count 1.02 X10^3/uL (0.83-4.51); Absolute Neutrophil Count 6.7 X10^3/uL (2.0-7.7); Basophil# 0.06 X10^3/uL; Basophil% 0.7 % (0-1); Eosinophil# 0.38 X10^3/uL; Eosinophils% 4.4 % (0-5); Hematocrit 33.8 % (37-47); Hemoglobin 10.6 g/dL (12.0-15.0); Lymphocyte # 1.02 X10^3/ul (0.83-4.51); Lymphocyte % 11.8 % (19-41); Mean Corp Hgb Conc 31.4 g/dL (32-36); Mean Corpuscular Volume 89.2 fL (81-99); Mean Platelet Vol. 10.2 fl (6.2-12.0); Monocyte# 0.49 X10^3/uL; Monocyte% 5.7 % (0-10); NRBC Flagged by Analyzer 0 % (0-5); Neutrophil # 6.65 X10^3/uL (2.7-7.7); Neutrophil % 76.8 % (47-70); Platelet Count 280 K/mm3 (150-450); RBC Distribution Width CV 14.8 % (11.6-14.6); RBC Distribution Width SD 48.4 fl (35.1-43.9); Red Blood Count 3.79 M/mm3 (4.2-5.4); White Blood Count 8.7 K/mm3 (4.4-11.0)
[2024-08-20 13:43] LABS: Erythrocyte Sedimentation Rate 43 mm/hr (0-30)
[2024-08-20 13:57] LABS: AST(SGOT) 20 U/L (<=31); Alanine Aminotransfer ALT/SGPT 11 U/L (<=34); Alkaline Phosphatase 75 U/L (35-104); Anion Gap 11 (5-15); BUN 28 mg/dL (4-19); BUN/Creat Ratio 24.3 RATIO (10-20); Calcium,Total 9.8 mg/dL (7.6-11.0); Carbon Dioxide 22.9 mmol/L (21.0-32.0); Chloride 106 mmol/L (98-108); Creatinine, Serum 1.14 mg/dL (0.70-1.20); EST Glomerular Filtration Rate 51 (>60); Globulin 3.9 g/dL (2.2-4.2); Glucose 115 mg/dL (70-99); Potassium 4.9 mmol/L (3.3-5.1); Protein, Total 7.8 g/dL (5.9-8.4); Sodium Level 140 mmol/L (133-145); Total Bilirubin 0.51 mg/dL (0.00-1.30)
[2024-08-20 13:59] LABS: Vitamin D,25 Hydroxy 33.9 ng/mL (30-100)
== END | disposition home or self-care (01) ==
PROVIDERS: PCP Internal Medicine; Referring Provider Internal Medicine; Visit Provider Internal Medicine
DX: E11.621 Type 2 diabetes mellitus with foot ulcer (principal); L97.509 Non-pressure chronic ulcer of other part of unspecified foot with unspecified severity; L97.519 Non-pressure chronic ulcer of other part of right foot with unspecified severity; I10 Essential (primary) hypertension; M81.0 Age-related osteoporosis without current pathological fracture
CPT/HCPCS: 36415; 73660; 80053; 82306; 85025; 85652; 86140

== ENCOUNTER 2024-09-11 10:00 | Outpatient (RCR) | payer MEDICARE, SELFPAY ==
[2024-08-28 11:18] VITALS: BP 121/82; PULSE 125; RESP 18; TEMP 36.3; BMI 32.7
--- NOTE | 2024-08-28 11:39 | PCM.WC.HP ---
History of Present Illness Date of Service: 08/28/24 Chief Complaint: Multiple, small superficial ulcerations in the lower extremities bilaterally History of Wound: This 72-year-old white female who presented with bilateral lower extremity ulcerations. They are small in size, but multiple in number. They have been present for a lengthy period of time. 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 The patient has been using silver cell and Alberto wraps. The patient also experiences swelling and edema in her lower extremities. She sleeps in a bed at night. The patient has recently been hospitalized at [facility] following amputation of her distal right third finger, following which she developed a MRSA infection/osteomyelitis with positive MRSA blood cultures. She has been under the care of Dr. Kiran Wolff, plastic surgeon, in this regard. Her recent MRSA infection is said to have been her first and only history of MRSA infections. She underwent surgery on 07/12/22 for surgical preparation right long finger amputation stump ulcer with incision and drainage and excisional debridement MRSA abscess and partial ostectomy middle phalanx for osteomyelitis. Operative tissue cultures positive for Enterobacter cloacae complex and MRSA. Operative bone cultures positive for MRSA and MRSE. She was discharged home on 07/15/22 with a PICC line and IV Vancomycin and oral Cipro. She was seen by ID while hospitalized and was to follow up ID post-discharge. Progress of Wound: Patient presents with left lower extremity leg ulcerations in setting of pitting edema and right foot ulcerations in setting of diabetic neuropathy patient denies constitutional symptoms or pain at current. Patient has no other complaints. [facility] Medical History Toe ulcer Diabetic ulcer of toe Arrhythmia Generalized erosion of teeth Screening-pulmonary TB History of cerebrovascular accident Chronic anticoagulation Bilateral leg ulcer Intertrigo Acute on chronic heart failure CKD (chronic kidney disease) Paroxysmal A-fib Diabetes mellitus Hypertension Elevated brain natriuretic peptide (BNP) level Stage 3b chronic kidney disease (CKD) Subtherapeutic international normalized ratio (INR) Chronic back pain Tachycardia Paroxysmal atrial fibrillation with RVR Atrial fib/flutter, transient Osteomyelitis of finger of right hand 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 without evidence of necrosis Abscess of right middle finger MRSA infection Acute kidney injury Bacteremia Finger infection Health care maintenance Flu vaccine need Urinary incontinence, overflow Burn injury of skin of finger Post-menopausal Chronic cough Irregular heartbeat Pancreatitis Weakness Depression Anxiety Alcohol use Arthritis Walker as ambulation aid Anemia Back pain Dietary restriction Former smoker CPAP (continuous positive airway pressure) dependence History of edema History of echocardiogram History of stress test Cardiology follow-up encounter Osteoporosis Preoperative evaluation to rule out surgical contraindication Atrial fibrillation COVID-19 vaccine series completed Venous insufficiency Paroxysmal atrial fibrillation Kidney disease Anxiety and depression Vision problems CVA (cerebral vascular accident) Hyperlipidemia Breast lump History of UTI Essential hypertension Non-rheumatic mitral valve stenosis Nonrheumatic aortic (valve) stenosis Overactive bladder Osteoarthritis DKA (diabetic ketoacidoses) Abnormal mammogram of right breast Depression with anxiety Home Medications ?Medication ?Instructions ?Recorded ?Last Taken ?Type WOUND CARE #1 ea 10/06/22 Unknown Rx compress.stocking,knee,reg,lrg #2 ea 05/26/23 Unknown Rx apixaban 5 mg tablet 5 mg PO BID blood thinner #180 tabs 10/26/23 Unknown Rx ascorbic acid (vitamin C) 500 mg 500 mg PO DAILY vitamin #90 tabs 10/26/23 Unknown Rx tablet (Vitamin C) cholecalciferol (vitamin D3) 50 50 mcg PO DAILY vitamin #90 caps 10/26/23 Unknown Rx mcg (2,000 unit) capsule ferrous sulfate 325 mg (65 mg 325 mg PO DAILY Supplement #90 tabs 10/26/23 Unknown Rx iron) tablet multivitamin 1 tab PO DAILY SUPPLEMENT #90 tabs 10/26/23 Unknown Rx sertraline 100 mg tablet (Zoloft) 100 mg PO DAILY anxiety #90 tabs 10/26/23 Unknown Rx metoprolol tartrate 100 mg tablet 100 mg PO BID #60 tabs 12/02/23 Unknown Rx acetaminophen 325 mg capsule 650 mg PO TID PRN Pain 12/07/23 Unknown History bacitracin zinc 500 unit/gram 1 applic topical TID #28.4 grams 12/13/23 Unknown Rx topical ointment bismuth tribrom-petrolatum,wh 5 X #50 ea 01/25/24 Unknown Rx 9 bandage (Xeroform Petrolatum Dressing) Handicap Placard #1 ea 01/31/24 Unknown Rx glimepiride 2 mg tablet 2 mg PO DAILY dm #90 tabs 05/22/24 Unknown Rx amlodipine 10 mg tablet 10 mg PO DAILY BP #90 tabs 06/21/24 Unknown Rx atorvastatin 10 mg tablet 10 mg PO DAILY #90 tabs 06/21/24 Unknown Rx metformin 1,000 mg tablet 1,000 mg PO BID DM #180 tabs 06/21/24 Unknown Rx oxybutynin chloride 15 mg 15 mg PO BID bladder #180 tabs 06/21/24 Unknown Rx tablet,extended release 24 hr furosemide 20 mg tablet 20 mg PO DAILY #90 tabs 08/10/24 Unknown Rx doxycycline monohydrate 100 mg 100 mg PO BID #14 caps 08/20/24 Unknown Rx capsule Allergy/AdvReac Type Severity Reaction Status Date / Time fosinopril (From Monopril) Allergy Unknown Other Verified 05/21/24 13:47 pioglitazone AdvReac Other Verified 05/21/24 13:47 Family History Father Diabetes High cholesterol Heart disease Melanoma Hypertension Mother Heart disease Brother AIDS (acquired immune deficiency syndrome) Surgical History History of hip surgery History of amputation of finger of right hand History of left elbow replacement History of hysterectomy History of carpal tunnel release History of back surgery Status post surgical amputation of finger of right hand Hx of colonoscopy History of left elbow replacement S/P hysterectomy S/P ORIF (open reduction internal fixation) fracture History of surgical amputation of finger of right hand History of hand surgery History of carpal tunnel release History of back surgery History of hysterectomy Social History household members: none Smoking Status: Former smoker how long ago did patient quit smokin years ago alcohol intake: current alcohol intake frequency: holidays/special occasions only substance use type: does not use what type of physical activity do you participate in: other details: aquasize ROS Constitutional Constitutional: Denies fever(s), frequent falls or weight loss Eyes Eyes: Denies change in eye color, change in vision or floaters ENT HEENT: Denies ear discharge, mouth pain or mucositis Cardiovascular Cardiovascular: Denies bluish discoloration of hand/feet, dyspnea at rest or dyspnea on exertion Respiratory/Chest Respiratory/Chest: Denies difficulty clearing secretions, dry cough or non-rest sleep EDS Gastrointestinal Gastrointestinal: Denies chewing difficulty, coffee ground emesis or hematochezia Vital Signs Vital Signs Vital Signs: 08/28/24 11:18 Temperature 97.3 F L Temperature Source Temporal Pulse Rate 125 H Respiratory Rate 18 Blood Pressure 121/82 H Blood Pressure Mean 95 Blood Pressure Source Monitor Blood Pressure Position Semi-Fowlers Blood Pressure Location Left Arm Weight Weight: 81.193 kg Body Mass Index (BMI) 32.7 Physical Exam Narrative Vascular: Dorsalis pedis posterior tibial pulses palpable 2 out of 4 to bilateral lower extremity compartments. Some a skin atrophic changes noted bilaterally. Digital hair growth noted bilaterally. +1 pitting edema noted to Vance malleoli regions bilaterally. Neurologic: Light touch and protective sensation absent to bilateral feet. Musculoskeletal: No gross deformity noted muscular strength for the bilateral lower extremity compartments. Dermatologic: Full-thickness ulceration noted to the distal aspect of the right second toe and the lateral aspect of the fifth toe to the right foot. No deep probing undermining or acute signs of infection. Full-thickness ulcerations noted to the anterior medial left leg. No deep probing undermining acute signs of infection noted. Const alert and oriented x3 Debridement Note Debridement Note Post-Debridement Measurements and Additional Note: Post-Debridement Measurements/Treatment - Nurse 1 - General Ulcer Assessment Start: 08/28/24 11:18 Freq: Status: Active Protocol: [email or web address] Activity Type Activity Date Activity User E-sign Co-sign Detail Recorded Client Recorded Date Recorded By Document 08/28/24 11:18 MEMO [id number] 08/28/24 11:25 RB 08/28/24 11:18 - Today's Visit Information Type of service Follow-up Visit (Physician/AS400 OPERATOR ) Arrival Mode Ambulatory, Walker Transfer Assistance None Patient Identification Verified (Name & Yes ) Patient Requires Transmission-Based No Precautions Height and Weight Height 5 ft 2 in Weight 81.193 kg Weight in Pounds 179.0 lbs Body Mass Index (BMI) 32.7 BMI Classification Obese Vital Signs Temperature (97.8 F-99.1 F) 97.3 F L Temperature Source Temporal Pulse Rate (60-100) 125 H Pulse Location Monitor Respiratory Rate (12-18) 18 Respiratory rate source Observation Blood Pressure (90/60-120/80) 121/82 H Blood Pressure Mean 95 Source Monitor Position Semi-Fowlers Blood Pressure Location Left Arm History Since Last Visit- (Skip if this is Patient's initial visit) Left Footwear Regular Shoe Right Footwear Regular Shoe Pain Scale: 0-10 Numeric Is Patient Pain Free? Yes WC - Nurse 1 - General Ulcer Measurement Start: 08/28/24 11:18 Freq: Status: Active Protocol: Activity Type Activity Date Activity User E-sign Co-sign Detail Recorded Client Recorded Date Recorded By Document 08/28/24 11:18 RB [id number] 08/28/24 11:25 RB 08/28/24 11:18 Wound Center Nurse 1 11. 5th TOE LATERAL -Combined with other wound No -Current Size (cm) - Length 0.1 -Current Size (cm) - Width 0.1 -Current Size (cm) - Depth 0.1 -Total Square Cm 0.01 -Photo Taken Yes -Tunneling No -Undermining/Tunneling No -Circular Undermining No -Exudate Amt None Present -Wound Margin Distinct, Outline Attached -Granulation Amt None Present (0 %) -Slough/Fibrin Yes -Necrosis Amt Large (67-100%) -Necrotic Tissue Type Eschar -Structure Exposed N/A -Texture (Jessica-wound Skin Appearance) Assessed,Callus -Moisture (Jessica-wound Skin Appearance) Assessed -Color (Jessica-wound Skin Appearance) Assessed -Temperature (Jessica-wound Skin No Abnormality Appearance) (Pt Warm) -Tenderness on Palpation (Jessica-wound No Skin Appearance) -Ulcer Cleansing Wound Cleanser -Foul Odor after Cleansing No -Anesthetic Used 5% Lidocaine Gel 10. R 2nd TOE -Combined with other wound No -Current Size (cm) - Length 0.5 -Current Size (cm) - Width 1.6 -Current Size (cm) - Depth 0.1 -Total Square Cm 0.80 -Photo Taken Yes -Tunneling No -Undermining/Tunneling No -Circular Undermining No -Exudate Amt Medium -Exudate Type Serosanguineous -Wound Margin Distinct, Outline Attached -Granulation Amt Medium (34-66%) -Granulation Quality [place] -Slough/Fibrin Yes -Necrosis Amt Large (67-100%) -Necrotic Tissue Type Adherent Slough -Structure Exposed N/A -Texture (Jessica-wound Skin Appearance) Assessed -Moisture (Jessica-wound Skin Appearance) Dry/Scaly -Color (Jessica-wound Skin Appearance) Assessed -Temperature (Jessica-wound Skin No Abnormality Appearance) (Pt Warm) -Tenderness on Palpation (Jessica-wound No Skin Appearance) -Ulcer Cleansing Wound Cleanser -Foul Odor after Cleansing No -Anesthetic Used 5% Lidocaine Gel 9. LLE MEDIAL -Combined with other wound No -Current Size (cm) - Length 2.4 -Current Size (cm) - Width 2.8 -Current Size (cm) - Depth 0.1 -Total Square Cm 6.72 -Photo Taken Yes -Tunneling No -Undermining/Tunneling No -Circular Undermining No -Exudate Amt Medium -Exudate Type Serosanguineous -Wound Margin Distinct, Outline Attached -Granulation Amt Large (67-100%) -Granulation Quality [place] -Slough/Fibrin Yes -Necrosis Amt Medium (34-66%) -Necrotic Tissue Type Adherent Slough -Structure Exposed N/A -Texture (Jessica-wound Skin Appearance) Assessed -Moisture (Jessica-wound Skin Appearance) Assessed,Dry/ Scaly -Color (Jessica-wound Skin Appearance) Assessed -Temperature (Jessica-wound Skin No Abnormality Appearance) (Pt Warm) -Tenderness on Palpation (Jessica-wound No Skin Appearance) -Ulcer Cleansing Wound Cleanser -Foul Odor after Cleansing No -Anesthetic Used 5% Lidocaine Gel 8. L NOLASCO CLUSTER -Combined with other wound No -Current Size (cm) - Length 7.7 -Current Size (cm) - Width 4 -Current Size (cm) - Depth 0.1 -Total Square Cm 30.8 -Photo Taken Yes -Tunneling No -Undermining/Tunneling No -Circular Undermining No -Exudate Amt Medium -Exudate Type Serosanguineous -Wound Margin Distinct, Outline Attached -Granulation Amt Medium (34-66%) -Granulation Quality [place] -Slough/Fibrin Yes -Necrosis Amt Small (1-33%) -Necrotic Tissue Type Adherent Slough -Structure Exposed N/A -Texture (Jessica-wound Skin Appearance) Assessed -Moisture (Jessica-wound Skin Appearance) Assessed,Dry/ Scaly -Color (Jessica-wound Skin Appearance) Assessed -Temperature (Jessica-wound Skin No Abnormality Appearance) (Pt Warm) -Tenderness on Palpation (Jessica-wound No Skin Appearance) -Ulcer Cleansing Wound Cleanser -Foul Odor after Cleansing No -Anesthetic Used 5% Lidocaine Gel Lower Limb Edema Present Yes Right Calf (cm) 35.5 Right Ankle (cm) 21 Left Calf (cm) 37.7 Left Ankle (cm) 21.2 - Nurse 2 - General Ulcer CM Notes Start: 08/28/24 11:18 Freq: Status: Active Protocol: Activity Type Activity Date Activity User E-sign Co-sign Detail Recorded Client Recorded Date Recorded By Document 08/28/24 11:30 ALBERTO [id number] 08/28/24 11:37 ALBERTO 08/28/24 11:30 Wound Center Nurse 2 11. 5th TOE LATERAL -Time 11:31 -Correct Patient Yes -Correct Side, Site, Position Yes -Correct Procedure Yes -Procedure Performed Yes -Type of Procedure Debridement -Clinical Debridement Subcutaneous -Tissue Removed Subcutaneous -Post Debridement (cm) - Length 1 -Post Debridement (cm) - Width 1.3 -Post Debridement (cm) - Depth 0.1 -Total Square (Post) (cm) 1.3 -Area of Debridement (cm) - Length 1 -Area of Debridement (cm) - Width 1.3 -Total Square (Area) (cm) 1.3 -Tunneling No -Undermining/Tunneling No -Circular Undermining No -Wound/Ulcer Outcome Not Healed -Ulcer Cleansing Rinsed/ Irrigated with Saline -Foul Odor after Cleansing No -Bioengineered Tissue No -Bleeding Controlled with Pressure -Treatment Response Procedure Tolerated Well -Offloading No -Debridement - Subq, 1st 20sq cm No 10. R 2nd TOE -Time 11:31 -Correct Patient Yes -Correct Side, Site, Position Yes -Correct Procedure Yes -Procedure Performed Yes -Type of Procedure Debridement -Clinical Debridement Subcutaneous -Tissue Removed Subcutaneous -Post Debridement (cm) - Length 1 -Post Debridement (cm) - Width 1.5 -Post Debridement (cm) - Depth 0.1 -Total Square (Post) (cm) 1.5 -Area of Debridement (cm) - Length 1 -Area of Debridement (cm) - Width 1.5 -Total Square (Area) (cm) 1.5 -Tunneling No -Undermining/Tunneling No -Circular Undermining No -Wound/Ulcer Outcome Not Healed -Ulcer Cleansing Rinsed/ Irrigated with Saline -Foul Odor after Cleansing No -Bioengineered Tissue No -Bleeding Controlled with Pressure -Treatment Response Procedure Tolerated Well -Offloading No -Debridement - Subq, 1st 20sq cm No 9. LLE MEDIAL -Time 11:31 -Correct Patient Yes -Correct Side, Site, Position Yes -Correct Procedure Yes -Procedure Performed Yes -Type of Procedure Debridement -Clinical Debridement Subcutaneous -Tissue Removed Subcutaneous -Post Debridement (cm) - Length 3.2 -Post Debridement (cm) - Width 2.2 -Post Debridement (cm) - Depth 0.1 -Total Square (Post) (cm) 7.04 -Area of Debridement (cm) - Length 3.2 -Area of Debridement (cm) - Width 2.2 -Total Square (Area) (cm) 7.04 -Tunneling No -Undermining/Tunneling No -Circular Undermining No -Wound/Ulcer Outcome Not Healed -Ulcer Cleansing Rinsed/ Irrigated with Saline -Foul Odor after Cleansing No -Bioengineered Tissue No -Bleeding Controlled with Pressure -Treatment Response Procedure Tolerated Well -Offloading No -Debridement - Subq, 1st 20sq cm No 8. L NOLASCO CLUSTER -Time 11:36 -Correct Patient Yes -Correct Side, Site, Position Yes -Correct Procedure Yes -Procedure Performed Yes -Type of Procedure Debridement -Clinical Debridement Subcutaneous -Tissue Removed Subcutaneous -Post Debridement (cm) - Length 9 -Post Debridement (cm) - Width 1 -Post Debridement (cm) - Depth 0.1 -Total Square (Post) (cm) 9 -Area of Debridement (cm) - Length 9 -Area of Debridement (cm) - Width 1 -Total Square (Area) (cm) 9 -Tunneling No -Undermining/Tunneling No -Circular Undermining No -Wound/Ulcer Outcome Not Healed -Ulcer Cleansing Rinsed/ Irrigated with Saline -Foul Odor after Cleansing No -Bioengineered Tissue No -Bleeding Controlled with Pressure -Treatment Response Procedure Tolerated Well -Offloading No -Debridement - Subq, 1st 20sq cm Yes Pain Scale: 0-10 Numeric Is Patient Pain Free? Yes Assessment/Plan Assessment/Plan (1) Type 2 diabetes mellitus with diabetic polyneuropathy: CODE(S): E11.42 - Type 2 diabetes mellitus with diabetic polyneuropathy QUALIFIERS: Diabetes mellitus keno terminal operator insulin use: with keno terminal operator use Qualified Code(s): E11.42 - Type 2 diabetes mellitus with diabetic polyneuropathy; Z79.4 - group home (current) use of insulin PLAN: Exam performed. Vital signs within normal limits. Recent x-rays right foot negative for osteomyelitis. 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 Bilateral lower extremities were excisionally debrided down to including level of subcutaneous tissue of all nonviable tissue using 5 mm dermal curette and 15 blade. No topical anesthesia due to neuropathy. Hemostasis obtained with light compression. Pre and postdebridement measurements document and nursing notes. Patient will offload right foot wounds with surgical shoe. Dress daily with hydrogel dry sterile dressing Tubigrip to right lower extremity. Left lower extremity will dress with silver alginate and 3M compression wrap. Patient will follow-up weekly (2) Non-pressure chronic ulcer of other part of right foot with fat layer exposed: CODE(S): L97.512 - Non-pressure chronic ulcer of other part of right foot with fat layer exposed (3) Non-pressure chronic ulcer of left calf with fat layer exposed: CODE(S): L97.222 - Non-pressure chronic ulcer of left calf with fat layer exposed
--- NOTE | 2024-08-29 09:55 | WC ---
PHOTO 08/28/24 RIGHT 5TH TOE
--- NOTE | 2024-08-29 09:56 | WC ---
PHOTO 08/28/24 MADELINE MARIA
--- NOTE | 2024-08-29 09:57 | WC ---
PHOTO 08/28/24 LEFT NOLASCO CLUSTER
[2024-09-11 10:12] VITALS: BP 103/72; PULSE 140; RESP 18; TEMP 35.8; BMI 32.7
--- NOTE | 2024-09-11 10:45 | PN.PCM_ITS ---
History of Present Illness Date of Service: 09/11/24 Chief Complaint: Multiple, small superficial ulcerations in the lower extr emities bilaterally History of Wound: This 72-year-old white female who presented with bilateral lower extremity ulcerations. They are small in size, but multiple in number. They have been present for a lengthy period of time. 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 The patient has been using silver cell and Alberto wraps. The patient also experiences swelling and edema in her lower extremities. She sleeps in a bed at night. 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 She has been under the care of Dr. Kiran Wolff, plastic surgeon, in this regard. Her recent MRSA infection is said to have been her first and only history of MRSA infections. She underwent surgery on 07/12/22 for surgical preparation right long finger amputation stump ulcer with incision and drainage and excisional debridement MRSA abscess and partial ostectomy middle phalanx for osteomyelitis. Operative tissue cultures positive for Enterobacter cloacae complex and MRSA. Operative bone cultures positive for MRSA and MRSE. She was discharged home on 07/15/22 with a PICC line and IV Vancomycin and oral Cipro. She was seen by ID while hospitalized and was to follow up ID post- discharge. Progress of Wound: Patient presents with left lower extremity leg ulcerations in setting of pitting edema and right foot ulcerations in setting of diabetic neuropathy patient denies constitutional symptoms or pain at current. Patient has no other complaints. Objective Data Objective Data Vital Signs: Vital Signs Temp Pulse Resp BP O2 Del Method 96.5 F L 140 H 18 103/72 Room Air 09/11/24 10:12 09/11/24 10:12 09/11/24 10:12 09/11/24 10:12 09/11/24 10:12 Oxygen Delivery Method Room Air Weight: 81.193 kg Body Mass Index (BMI) 32.7 Physical Exam Narrative Vascular: Dorsalis pedis posterior tibial pulses palpable 2 out of 4 to bilateral lower extremity compartments. Some a skin atrophic changes noted bilaterally. Digital hair growth noted bilaterally. +1 pitting edema noted to Vance malleoli regions bilaterally. Neurologic: Light touch and protective sensation absent to bilateral feet. Musculoskeletal: No gross deformity noted muscular strength for the bilateral lower extremity compartments. Dermatologic: Full-thickness ulceration noted to the distal aspect of the right second toe and the lateral aspect of the fifth toe to the right foot. No deep probing undermining or acute signs of infection. Full-thickness ulcerations noted to the anterior medial left leg. No deep probing undermining acute signs of infection noted. Const alert and oriented x3 Debridement Note Debridement Note Post-Debridement Measurements and Additional Note: Post-Debridement Measurements/Treatment WC - Nurse 1 - General Ulcer Assessment Start: 08/28/24 11:18 Freq: Status: Active Protocol: DENG Activity Type Activity Date Activity User E-sign Co-sign Detail Recorded Client Recorded Date Recorded By Document 08/28/24 11:18 RB [id number] 08/28/24 11:25 RB Edit Result 08/28/24 11:18 RB (1) [id number] 08/28/24 11:39 RB Document 09/11/24 10:12 KW [id number] 09/11/24 10:31 KW (1) Right - Posterior Tibial Palpable => Yes - Dorsalis Pedis Palpable => Yes - Extremity Color => Hyperpigmented - Hair Growth on Legs => Yes - Hair Growth on Toes => No - Temperature of Extremity => Warm - Capillary Refill => Less than 3 => Seconds - Dependent Rubor => No - Blanched when Elevated => No - Lipodermatosclerosis => No - Other Deformity => No - Prior Foot Ulcer => No - Charcot Joint => No - Prior Amputation => No - Thick => Yes - Discolored => No - Deformed => No - Improper Length & Hygeine => Yes Left - Posterior Tibial Palpable => Yes - Dorsalis Pedis Palpable => Yes - Extremity Color => Hyperpigmented - Hair Growth on Legs => Yes - Hair Growth on Toes => No - Temperature of Extremity => Warm - Capillary Refill => Less than 3 => Seconds - Dependent Rubor => No - Blanched when Elevated => No - Lipodermatosclerosis => No - Other Deformity => No - Prior Foot Ulcer => No - Charcot Joint => No - Prior Amputation => No - Thick => Yes - Discolored => No - Deformed => No - Improper Length & Hygeine => Yes Feet - Top Side and Bottom => <Entered> (a) Preferred language => Libyan Technical Architect Required => No Able to Read => Yes Able to Write => Yes Communication Tools => None Caregiver Communication Skills => No Impairment Impairment Right Hearing Abillity => Normal Left Hearing Abillity => Normal Visual Assistive Devices => Glasses Preferences => Verbal,Written Barriers to Learning => None Readiness To Learn => Good Willingness to Engage in Self Management => Med Activies Readiness to Engage in Self Management => Med Activities Anxiety Level => Calm Cooperation => Cooperative Perception => Coherent Interest in Health Problem => Asks Questions Education Importance => Acknowledges Need Does Patient Smoke tobacco or other => No substances Smoking Status => Never smoker Is Patient Diabetic => Yes Recent Decline in Ability to Perform => Denies Any => Declines Assistive Device With Patient => No Cultural/Taoism Needs that may affect => No Treatment Plan Would you allow our hospital manager credit collections to => No meet you for the purpose of spiritual/ emotional support? Electric Blanket Packer to contact place of zoroastrianism => No *Welcome to the Wound Center - Person Taught => Patient - Teaching Method => Discussion - Response to teaching => Verbalize => Understanding 08/28/24 09/11/24 11:18 10:12 - Today's Visit Information Type of service Follow-up Visit Follow-up Visit (Physician/IT TELECOM TECHNICIAN (Physician/IT TELECOM TECHNICIAN ) ) Arrival Mode Ambulatory, Ambulatory, Walker Walker Transfer Assistance None Patient Identification Verified (Name & Yes Yes ) Patient Requires Transmission-Based No Precautions Finger Stick Blood Sugar(mg/dl) (if 114 indicated): Blood Sugar Stated by Patient Height and Weight Height 5 ft 2 in Weight 81.193 kg Weight in Pounds 179.0 lbs Body Mass Index (BMI) 32.7 32.7 BMI Classification Obese Obese Vital Signs Temperature (97.8 F-99.1 F) 97.3 F L 96.5 F L Temperature Source Temporal Temporal Pulse Rate (60-100) 125 H 140 H Pulse Location Monitor Monitor Respiratory Rate (12-18) 18 18 Respiratory rate source Observation Observation Oxygen Delivery Method Room Air Blood Pressure (90/60-120/80) 121/82 H 103/72 Blood Pressure Mean (mm Hg) 95 82 Source Monitor Monitor Position Semi-Fowlers Semi-Fowlers Blood Pressure Location Left Arm Right Arm History Since Last Visit- (Skip if this is Patient's initial visit) Have you changed medications since your No last visit? Any new allergies or adverse reactions No Had a fall/change in ADL's that may No increase risk of falls Signs or symptoms of abuse and/or No neglect since last visit Have you been in the hospital since your No last visit? Has dressing in place as prescribed Yes Has compression in place as prescribed Yes Has offloadiing in place as prescribed Yes Experienced any changes in pain level or No management Left Footwear Regular Shoe Regular Shoe Right Footwear Regular Shoe Surgical Shoe with pressure relief insole Pain Scale: 0-10 Numeric Is Patient Pain Free? Yes Yes Lower Extremity Assessment/ Foot Assessment/ Toe Nail Assessment Right -Posterior Tibial Palpable Yes -Dorsalis Pedis Palpable Yes -Extremity Color Hyperpigmented -Hair Growth on Legs Yes -Hair Growth on Toes No -Temperature of Extremity Warm -Capillary Refill Less than 3 Seconds -Dependent Rubor No -Blanched when Elevated No -Lipodermatosclerosis No -Other Deformity No -Prior Foot Ulcer No -Charcot Joint No -Prior Amputation No -Thick Yes -Discolored No -Deformed No -Improper Length & Hygeine Yes Left -Posterior Tibial Palpable Yes -Dorsalis Pedis Palpable Yes -Extremity Color Hyperpigmented -Hair Growth on Legs Yes -Hair Growth on Toes No -Temperature of Extremity Warm -Capillary Refill Less than 3 Seconds -Dependent Rubor No -Blanched when Elevated No -Lipodermatosclerosis No -Other Deformity No -Prior Foot Ulcer No -Charcot Joint No -Prior Amputation No -Thick Yes -Discolored No -Deformed No -Improper Length & Hygeine Yes Neuropathy Assessment Feet - Top Side and Bottom <Entered> (a) Communication Assessment Preferred language Libyan Technical Architect Required No Able to Read Yes Able to Write Yes Communication Tools None Caregiver Communication Skills No Impairment Impairment Right Hearing Abillity Normal Left Hearing Abillity Normal Visual Assistive Devices Glasses Teaching Assessment Preferences Verbal,Written Barriers to Learning None Readiness To Learn Good Willingness to Engage in Self Management Med Activies Readiness to Engage in Self Management Med Activities Anxiety Level Calm Cooperation Cooperative Perception Coherent Interest in Health Problem Asks Questions Education Importance Acknowledges Need Does Patient Smoke tobacco or other No substances Smoking Status Never smoker Is Patient Diabetic Yes Functional Assessment Recent Decline in Ability to Perform Denies Any Declines Assistive Device With Patient No Culture/Taoism/Electric Blanket Packer Cultural/Taoism Needs that may affect No Treatment Plan Would you allow our hospital manager credit collections to No meet you for the purpose of spiritual/ emotional support? Electric Blanket Packer to contact place of zoroastrianism No Teaching: Wound Center *Welcome to the Wound Center -Person Taught Patient -Teaching Method Discussion -Response to teaching Verbalize Understanding (a) 1 - + throughout WC - Nurse 1 - General Ulcer Measurement Start: 08/28/24 11:18 Freq: Status: Active Protocol: Activity Type Activity Date Activity User E-sign Co-sign Detail Recorded Client Recorded Date Recorded By Document 08/28/24 11:18 RB [id number] 08/28/24 11:25 RB Document 09/11/24 10:12 KW [id number] 09/11/24 10:31 KW 08/28/24 09/11/24 11:18 10:12 Wound Center Nurse 1 11. 5th TOE LATERAL -Combined with other wound No -Current Size (cm) - Length 0.1 0.6 -Current Size (cm) - Width 0.1 0.7 -Current Size (cm) - Depth 0.1 0.1 -Total Square Cm 0.01 0.42 -Date of Last Picture (Recall this 09/11/24 field) -Photo Taken Yes -Tunneling No -Undermining/Tunneling No -Circular Undermining No -Exudate Amt None Present Small -Exudate Type Serosanguineous -Wound Margin Distinct, Distinct, Outline Outline Attached Attached -Granulation Amt None Present (0 Small (1-33%) %) -Granulation Quality Kappa -Slough/Fibrin Yes -Necrosis Amt Large (67-100%) Medium (34-66%) -Necrotic Tissue Type Eschar Adherent Slough -Structure Exposed N/A -Texture (Jessica-wound Skin Appearance) Assessed,Callus Assessed -Moisture (Jessica-wound Skin Appearance) Assessed Assessed, Maceration -Color (Jessica-wound Skin Appearance) Assessed Assessed -Temperature (Jessica-wound Skin No Abnormality No Abnormality Appearance) (Pt Warm) (Pt Warm) -Tenderness on Palpation (Jessica-wound No No Skin Appearance) -Ulcer Cleansing Wound Cleanser Rinsed/ Irrigated with Saline -Foul Odor after Cleansing No No -Anesthetic Used 5% Lidocaine 5% Lidocaine Gel Gel 10. R 2nd TOE -Combined with other wound No -Current Size (cm) - Length 0.5 0.5 -Current Size (cm) - Width 1.6 1 -Current Size (cm) - Depth 0.1 0.1 -Total Square Cm 0.80 0.5 -Date of Last Picture (Recall this 09/11/24 field) -Photo Taken Yes -Tunneling No -Undermining/Tunneling No -Circular Undermining No -Exudate Amt Medium Small -Exudate Type Serosanguineous Serosanguineous -Wound Margin Distinct, Distinct, Outline Outline Attached Attached -Granulation Amt Medium (34-66%) Large (67-100%) -Granulation Quality Kappa Kappa,Red -Slough/Fibrin Yes -Necrosis Amt Large (67-100%) -Necrotic Tissue Type Adherent Slough -Structure Exposed N/A -Texture (Jessica-wound Skin Appearance) Assessed Assessed -Moisture (Jessica-wound Skin Appearance) Dry/Scaly Assessed -Color (Jessica-wound Skin Appearance) Assessed Assessed -Temperature (Jessica-wound Skin No Abnormality No Abnormality Appearance) (Pt Warm) (Pt Warm) -Tenderness on Palpation (Jessica-wound No No Skin Appearance) -Ulcer Cleansing Wound Cleanser Rinsed/ Irrigated with Saline -Foul Odor after Cleansing No No -Anesthetic Used 5% Lidocaine 5% Lidocaine Gel Gel 9. LLE MEDIAL -Combined with other wound No -Current Size (cm) - Length 2.4 2.5 -Current Size (cm) - Width 2.8 1.3 -Current Size (cm) - Depth 0.1 0.1 -Total Square Cm 6.72 3.25 -Date of Last Picture (Recall this 09/11/24 field) -Photo Taken Yes -Tunneling No -Undermining/Tunneling No -Circular Undermining No -Exudate Amt Medium -Exudate Type Serosanguineous Serosanguineous -Wound Margin Distinct, Distinct, Outline Outline Attached Attached -Granulation Amt Large (67-100%) Large (67-100%) -Granulation Quality Kappa Red -Slough/Fibrin Yes -Necrosis Amt Medium (34-66%) -Necrotic Tissue Type Adherent Slough -Structure Exposed N/A -Texture (Jessica-wound Skin Appearance) Assessed Assessed -Moisture (Jessica-wound Skin Appearance) Assessed,Dry/ Assessed Scaly -Color (Jessica-wound Skin Appearance) Assessed Assessed -Temperature (Jessica-wound Skin No Abnormality No Abnormality Appearance) (Pt Warm) (Pt Warm) -Tenderness on Palpation (Jessica-wound No No Skin Appearance) -Ulcer Cleansing Wound Cleanser Soap and Water -Foul Odor after Cleansing No No -Anesthetic Used 5% Lidocaine 5% Lidocaine Gel Gel 8. L NOLASCO CLUSTER -Combined with other wound No -Current Size (cm) - Length 7.7 -Current Size (cm) - Width 4 -Current Size (cm) - Depth 0.1 -Total Square Cm 30.8 -Photo Taken Yes -Tunneling No -Undermining/Tunneling No -Circular Undermining No -Exudate Amt Medium -Exudate Type Serosanguineous -Wound Margin Distinct, Outline Attached -Granulation Amt Medium (34-66%) -Granulation Quality Kappa -Slough/Fibrin Yes -Necrosis Amt Small (1-33%) -Necrotic Tissue Type Adherent Slough -Structure Exposed N/A -Texture (Jessica-wound Skin Appearance) Assessed -Moisture (Jessica-wound Skin Appearance) Assessed,Dry/ Scaly -Color (Jessica-wound Skin Appearance) Assessed -Temperature (Jessica-wound Skin No Abnormality Appearance) (Pt Warm) -Tenderness on Palpation (Jessica-wound No Skin Appearance) -Ulcer Cleansing Wound Cleanser -Foul Odor after Cleansing No -Anesthetic Used 5% Lidocaine Gel Lower Limb Edema Present Yes Right Calf (cm) 35.5 34.5 Right Ankle (cm) 21 20 Left Calf (cm) 37.7 34.5 Left Ankle (cm) 21.2 20.5 WC - Nurse 2 - General Ulcer CM Notes Start: 08/28/24 11:18 Freq: Status: Active Protocol: Activity Type Activity Date Activity User E-sign Co-sign Detail Recorded Client Recorded Date Recorded By Document 08/28/24 11:30 ALBERTO [id number] 08/28/24 11:37 ALBERTO 08/28/24 11:30 Wound Center Nurse 2 11. 5th TOE LATERAL -Time 11:31 -Correct Patient Yes -Correct Side, Site, Position Yes -Correct Procedure Yes -Procedure Performed Yes -Type of Procedure Debridement -Clinical Debridement Subcutaneous -Tissue Removed Subcutaneous -Post Debridement (cm) - Length 1 -Post Debridement (cm) - Width 1.3 -Post Debridement (cm) - Depth 0.1 -Total Square (Post) (cm) 1.3 -Area of Debridement (cm) - Length 1 -Area of Debridement (cm) - Width 1.3 -Total Square (Area) (cm) 1.3 -Tunneling No -Undermining/Tunneling No -Circular Undermining No -Wound/Ulcer Outcome Not Healed -Ulcer Cleansing Rinsed/ Irrigated with Saline -Foul Odor after Cleansing No -Bioengineered Tissue No -Bleeding Controlled with Pressure -Treatment Response Procedure Tolerated Well -Offloading No -Debridement - Subq, 1st 20sq cm No 10. R 2nd TOE -Time 11:31 -Correct Patient Yes -Correct Side, Site, Position Yes -Correct Procedure Yes -Procedure Performed Yes -Type of Procedure Debridement -Clinical Debridement Subcutaneous -Tissue Removed Subcutaneous -Post Debridement (cm) - Length 1 -Post Debridement (cm) - Width 1.5 -Post Debridement (cm) - Depth 0.1 -Total Square (Post) (cm) 1.5 -Area of Debridement (cm) - Length 1 -Area of Debridement (cm) - Width 1.5 -Total Square (Area) (cm) 1.5 -Tunneling No -Undermining/Tunneling No -Circular Undermining No -Wound/Ulcer Outcome Not Healed -Ulcer Cleansing Rinsed/ Irrigated with Saline -Foul Odor after Cleansing No -Bioengineered Tissue No -Bleeding Controlled with Pressure -Treatment Response Procedure Tolerated Well -Offloading No -Debridement - Subq, 20sq cm No 9. LLE MEDIAL -Time 11:31 -Correct Patient Yes -Correct Side, Site, Position Yes -Correct Procedure Yes -Procedure Performed Yes -Type of Procedure Debridement -Clinical Debridement Subcutaneous -Tissue Removed Subcutaneous -Post Debridement (cm) - Length 3.2 -Post Debridement (cm) - Width 2.2 -Post Debridement (cm) - Depth 0.1 -Total Square (Post) (cm) 7.04 -Area of Debridement (cm) - Length 3.2 -Area of Debridement (cm) - Width 2.2 -Total Square (Area) (cm) 7.04 -Tunneling No -Undermining/Tunneling No -Circular Undermining No -Wound/Ulcer Outcome Not Healed -Ulcer Cleansing Rinsed/ Irrigated with Saline -Foul Odor after Cleansing No -Bioengineered Tissue No -Bleeding Controlled with Pressure -Treatment Response Procedure Tolerated Well -Offloading No -Debridement - Subq, 1st 20sq cm No 8. L NOLASCO CLUSTER -Time 11:36 -Correct Patient Yes -Correct Side, Site, Position Yes -Correct Procedure Yes -Procedure Performed Yes -Type of Procedure Debridement -Clinical Debridement Subcutaneous -Tissue Removed Subcutaneous -Post Debridement (cm) - Length 9 -Post Debridement (cm) - Width 1 -Post Debridement (cm) - Depth 0.1 -Total Square (Post) (cm) 9 -Area of Debridement (cm) - Length 9 -Area of Debridement (cm) - Width 1 -Total Square (Area) (cm) 9 -Tunneling No -Undermining/Tunneling No -Circular Undermining No -Wound/Ulcer Outcome Not Healed -Ulcer Cleansing Rinsed/ Irrigated with Saline -Foul Odor after Cleansing No -Bioengineered Tissue No -Bleeding Controlled with Pressure -Treatment Response Procedure Tolerated Well -Offloading No -Debridement - Subq, 1st 20sq cm Yes Pain Scale: 0-10 Numeric Is Patient Pain Free? Yes WC - Nurse 3 - General Ulcer D/C NN Start: 08/28/24 11:18 Freq: Status: Active Protocol: Activity Type Activity Date Activity User E-sign Co-sign Detail Recorded Client Recorded Date Recorded By Document 08/28/24 11:46 ML [id number] 08/28/24 11:52 ML 08/28/24 11:46 Wound Care Center Nurse 3 11. 5th TOE LATERAL -Ulcer Cleansing Rinsed/ Irrigated with Saline -Other Dressing hydrogel -Primary Dressing Covered/Secured with Dry Gauze, Secured with Tape 10. R 2nd TOE -Ulcer Cleansing Rinsed/ Irrigated with Saline -Other Dressing hydrogel -Primary Dressing Covered/Secured with Dry Gauze, Secured with Tape 9. LLE MEDIAL -Ulcer Cleansing Rinsed/ Irrigated with Saline -Primary Dressing Applied Silvercel -Other Dressing abd -Primary Dressing Covered/Secured with Other -Other Covering 3m wrap -Silvercel 1 8. L NOLASCO CLUSTER -Ulcer Cleansing Rinsed/ Irrigated with Saline -Primary Dressing Applied Silvercel -Other Dressing 3M,ABD -Primary Dressing Covered/Secured with Dry Gauze -Silvercel 1 LEFT LEG -Multi-Layered Wrap Application Multi-Layer Comp - Left ($) -Multi-Layer Compression Left (Qty 1 applied) RIGHT LEG -Tubular Bandage Double Layer -Size of Tubigrip Used Size E -Size E ($) 2 Pain Scale: 0-10 Numeric Is Patient Pain Free? Yes Assessment/Plan Assessment/Plan (1) Type 2 diabetes mellitus with diabetic polyneuropathy: CODE(S): E11.42 - Type 2 diabetes mellitus with diabetic polyneuropathy QUALIFIERS: Diabetes mellitus nursing home insulin use: with nursing home use Qualified Code(s): E11.42 - Type 2 diabetes mellitus with diabetic polyneuropathy; Z79.4 - prison (current) use of insulin PLAN: Exam performed. Vital signs within normal limits. Recent x-rays right foot negative for osteomyelitis. 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 Bilateral lower extremities were excisionally debrided down to including level of subcutaneous tissue of all nonviable tissue using 5 mm dermal curette and 15 blade. No topical anesthesia due to neuropathy. Hemostasis obtained with light compression. Pre and postdebridement measurements document and nursing notes. Patient will offload right foot wounds with surgical shoe. Dress daily with hydrogel dry sterile dressing Tubigrip to right lower extremity. Left lower extremity will dress with silver alginate and 3M compression wrap. Patient will follow-up weekly (2) Non-pressure chronic ulcer of other part of right foot with fat layer exposed: CODE(S): L97.512 - Non-pressure chronic ulcer of other part of right foot with fat layer exposed (3) Non-pressure chronic ulcer of left calf with fat layer exposed: CODE(S): L97.222 - Non-pressure chronic ulcer of left calf with fat layer exposed
--- NOTE | 2024-09-12 13:41 | WC ---
PHOTO 09/11/24 RIGHT 5TH TOE
--- NOTE | 2024-09-12 13:47 | WC ---
PHOTO 09/11/24 RIGHT 2ND TOE
--- NOTE | 2024-09-12 13:58 | WC ---
PHOTO 09/11/24 MADELINE
== END 2024-09-12 23:59 | disposition home or self-care (01) ==
LOC: WC 10:00
PROVIDERS: PCP Internal Medicine; Referring Provider Internal Medicine; Visit Provider Podiatrist
DX: E11.621 Type 2 diabetes mellitus with foot ulcer (principal); L97.512 Non-pressure chronic ulcer of other part of right foot with fat layer exposed; L97.222 Non-pressure chronic ulcer of left calf with fat layer exposed; I13.0 Hypertensive heart and chronic kidney disease with heart failure and stage 1 through stage 4 chronic kidney disease, or unspecified chronic kidney disease; I50.9 Heart failure, unspecified; I48.0 Paroxysmal atrial fibrillation; E11.42 Type 2 diabetes mellitus with diabetic polyneuropathy; E11.22 Type 2 diabetes mellitus with diabetic chronic kidney disease; Z79.4 Long term (current) use of insulin; N18.32 Chronic kidney disease, stage 3b; R60.0 Localized edema; M54.9 Dorsalgia, unspecified; G89.29 Other chronic pain; E78.5 Hyperlipidemia, unspecified; F32.A Depression, unspecified; F41.9 Anxiety disorder, unspecified; Z79.01 Long term (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; Z79.84 Long term (current) use of oral hypoglycemic drugs; Z79.899 Other long term (current) drug therapy; Z87.891 Personal history of nicotine dependence; Z86.14 Personal history of Methicillin resistant Staphylococcus aureus infection; Z87.39 Personal history of other diseases of the musculoskeletal system and connective tissue; Z89.021 Acquired absence of right finger(s)
CPT/HCPCS: 11042; 29581; 99214; G0463

== ENCOUNTER 2024-10-02 16:06 | Emergency (ER) | payer MEDICARE, SELFPAY ==
[2024-10-02] VITALS (7 sets, daily range): BP systolic 105–127; BP diastolic 67–96; PULSE 68–122; RESP 17–21; TEMP 36.1–37.1; O2SAT 94–98; BMI 31.1
--- NOTE | 2024-10-02 16:58 | EX.ED.DYSGE1 ---
HPI History of Present Illness Chief Complaint: Wound Check Informant: patient Onset/Context/Timing Onset: Days (5) Context: Gradual Onset Timing: Intermittent Quality: Intermittent confusion Location: Generalized Worsened by: Nothing Relieved by: Nothing Narrative Narrative: Patient presents with possible urinary tract infection that has been getting worse over the past 5 days. Patient states she was having some confusion and dark urine. Patient denies any dysuria or hematuria. Patient states she has been having urinary frequency but is also on a diuretic. Patient denies any fevers or chills. Patient states that at times she notes that her heart is racing. Patient denies any palpitations or feeling like her heart is racing. Patient denies any shortness of breath or cough. Patient states she has chronic leg wounds over her lower extremities bilaterally. Patient states she follows with the wound care center. Patient states she saw them today and had them dressed. Patient states that the physicians at the wound care center are expecting to have her legs healed by next week. She states that the wounds are continually getting better. [facility] Medical History Toe ulcer Diabetic ulcer of toe Arrhythmia Generalized erosion of teeth Screening-pulmonary TB History of cerebrovascular accident Chronic anticoagulation Bilateral leg ulcer Intertrigo Acute on chronic heart failure CKD (chronic kidney disease) Paroxysmal A-fib Diabetes mellitus Hypertension Elevated brain natriuretic peptide (BNP) level Stage 3b chronic kidney disease (CKD) Subtherapeutic international normalized ratio (INR) Chronic back pain Tachycardia Paroxysmal atrial fibrillation with RVR Atrial fib/flutter, transient Osteomyelitis of finger of right hand MCC (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 without evidence of necrosis Abscess of right middle finger MRSA infection Acute kidney injury Bacteremia Finger infection Health care maintenance Flu vaccine need Urinary incontinence, overflow Burn injury of skin of finger Post-menopausal Chronic cough Irregular heartbeat Pancreatitis Weakness Depression Anxiety Alcohol use Arthritis Walker as ambulation aid Anemia Back pain Dietary restriction Former smoker CPAP (continuous positive airway pressure) dependence History of edema History of echocardiogram History of stress test Cardiology follow-up encounter Osteoporosis Preoperative evaluation to rule out surgical contraindication Atrial fibrillation COVID-19 vaccine series completed Venous insufficiency Paroxysmal atrial fibrillation Kidney disease Anxiety and depression Vision problems CVA (cerebral vascular accident) Hyperlipidemia Breast lump History of UTI Essential hypertension Non-rheumatic mitral valve stenosis Nonrheumatic aortic (valve) stenosis Overactive bladder Osteoarthritis DKA (diabetic ketoacidoses) Abnormal mammogram of right breast Depression with anxiety Home Medications ?Medication ?Instructions ?Recorded ?Last Taken ?Type WOUND CARE #1 ea 10/06/22 Unknown Rx compress.stocking,knee,reg,lrg #2 ea 05/26/23 Unknown Rx multivitamin 1 tab PO DAILY SUPPLEMENT #90 tabs 10/26/23 Unknown Rx metoprolol tartrate 100 mg tablet 100 mg PO BID #60 tabs 12/02/23 Unknown Rx acetaminophen 325 mg capsule 650 mg PO TID PRN Pain 12/07/23 Unknown History bismuth tribrom-petrolatum,wh 5 X #50 ea 01/25/24 Unknown Rx 9 bandage (Xeroform Petrolatum Dressing) Handicap Placard #1 ea 01/31/24 Unknown Rx glimepiride 2 mg tablet 2 mg PO DAILY dm #90 tabs 05/22/24 Unknown Rx amlodipine 10 mg tablet 10 mg PO DAILY BP #90 tabs 09/04/24 Unknown Rx apixaban 5 mg tablet 5 mg PO BID blood thinner #180 tabs 09/04/24 Unknown Rx ascorbic acid (vitamin C) 500 mg 500 mg PO DAILY vitamin #90 tabs 09/04/24 Unknown Rx tablet (Vitamin C) atorvastatin 10 mg tablet 10 mg PO DAILY #90 tabs 09/04/24 Unknown Rx cholecalciferol (vitamin D3) 50 50 mcg PO DAILY vitamin #90 caps 09/04/24 Unknown Rx mcg (2,000 unit) capsule ferrous sulfate 325 mg (65 mg 325 mg PO DAILY Supplement #90 tabs 09/04/24 Unknown Rx iron) tablet metformin 1,000 mg tablet 1,000 mg PO BID DM #180 tabs 09/04/24 Unknown Rx oxybutynin chloride 15 mg 15 mg PO QDAY bladder #90 tabs 09/04/24 Unknown Rx tablet,extended release 24 hr sertraline 100 mg tablet (Zoloft) 100 mg PO DAILY anxiety #90 tabs 09/04/24 Unknown Rx furosemide 40 mg tablet 40 mg PO DAILY #30 tabs 09/24/24 Unknown Rx amiodarone 200 mg tablet 200 mg PO .COMPLEX #90 tabs 10/01/24 Unknown Rx cephalexin 500 mg capsule 500 mg PO TID #15 CAPSULES 10/02/24 Unknown Rx Allergy/AdvReac Type Severity Reaction Status Date / Time fosinopril (From Monopril) Allergy Unknown Other Verified 10/02/24 16:07 pioglitazone AdvReac Other Verified 10/02/24 16:07 Family History (Reviewed 09/24/24 @ 14:04 by Mando Jenkins SENIOR PAYROLL SPECIALIST, SENIOR PAYROLL SPECIALIST-C) Father Diabetes High cholesterol Heart disease Melanoma Hypertension Mother Heart disease Brother AIDS (acquired immune deficiency syndrome) Surgical History History of hip surgery History of amputation of finger of right hand History of left elbow replacement History of hysterectomy History of carpal tunnel release History of back surgery Status post surgical amputation of finger of right hand Hx of colonoscopy History of left elbow replacement S/P hysterectomy S/P ORIF (open reduction internal fixation) fracture History of surgical amputation of finger of right hand History of hand surgery History of carpal tunnel release History of back surgery History of hysterectomy Social History household members: none Smoking Status: Never smoker how long ago did patient quit smokin years ago alcohol intake: current alcohol intake frequency: holidays/special occasions only substance use type: does not use what type of physical activity do you participate in: other details: chantal [place] ED Constitutional Constitutional ED: Denies chills or fever(s) Eyes Eyes: Denies blurry vision or change in vision ENT ENT ED: Denies rhinorrhea or sore throat Cardiovascular Cardiovascular: Reports racing heartbeat; Denies chest pain or palpitations Respiratory/Chest Respiratory/Chest: Denies cough or dyspnea Gastrointestinal Gastrointestinal: Denies nausea or vomiting Genitourinary Genitourinary ED: Reports urinary frequency; Denies dysuria or hematuria Musculoskeletal Musculoskeletal: Reports back pain; Denies neck pain Integumentary Denies abscess or rash Neurologic Neurologic: Denies headache(s) or weakness Allergic/Immunologic Allergic/Immunologic ED: Denies mouth swelling or urticaria EXAM Physical Exam Const Vital Signs: 10/02/24 16:07 10/02/24 17:21 10/02/24 18:10 Temperature 98.7 F 98.0 F Temperature Source Oral Oral Pulse Rate 122 H 100 Respiratory Rate 18 21 H Respiratory Effort Normal Non-Labored Blood Pressure 127/96 H 107/76 Blood Pressure Mean 106 86 Pulse Ox 96 94 Oxygen Delivery Method Room Air Room Air 10/02/24 18:17 10/02/24 19:00 10/02/24 19:59 Temperature 98.0 F 97.8 F 98 F Temperature Source Oral Temporal Temporal Pulse Rate 100 106 H 110 H Respiratory Rate 21 H 18 21 H Respiratory Effort Blood Pressure 107/76 105/79 108/85 H Blood Pressure Mean 86 87 92 Pulse Ox 94 95 96 Oxygen Delivery Method Room Air Room Air Room Air 10/02/24 20:00 Temperature 98 F Temperature Source Temporal Pulse Rate 110 H Respiratory Rate 21 H Respiratory Effort Blood Pressure 108/85 H Blood Pressure Mean 92 Pulse Ox 96 Oxygen Delivery Method Room Air Positive well nourished and well developed General Appearance ED: well developed and NAD HEENT Reports moist mucous membranes Neck supple and no JVD Resp normal respiratory effort and clear to auscultation bilaterally Cardio Rate: tachycardic Rhythm: abnormal rhythm irregularly irregular GI non-tender and non-distended Palpation: soft Extremity Extremity Narrative: There were dressings in place of the lower legs bilaterally. There is no tenderness. There is no edema noted. General Extremety ED: Negative for edema or tenderness General Extremity: Negative for edema Neuro oriented x3, CN's II-XII intact bilaterally and no sensory deficits noted Sensorium / Orientation: alert Motor Exam: strength 5/5 throughout Psych mental status grossly normal MDM MDM MDM Narrative Medical decision making narrative: Differential diagnosis includes but is not limited to urinary tract infection, sepsis, dehydration, electrolyte abnormality, cardiac dysrhythmia, cardiac ischemia, and electrolyte abnormality. EKG will be obtained to assess for cardiac dysrhythmia and cardiac ischemia. CBC will be obtained to assess for leukocytosis and anemia. Comprehensive metabolic profile will be obtained to assess for hepatic function, renal function, and electrolyte abnormality. Urinalysis will be obtained to assess for urinary tract infection and hematuria. PT with INR and PTT will be obtained to assess for coagulopathy. High-sensitivity troponin will be obtained to assess for cardiac ischemia. 2-hour repeat high-sensitivity troponin will be obtained to assess for ongoing cardiac ischemia. Chest x-ray will be obtained to assess for pneumonia or bronchitis. Serum lactate will be obtained to assess for sepsis. Urine culture will be obtained to assess for urinary tract infection and hematuria. Blood cultures will be obtained to assess for sepsis. History & Record Review Additional record(s) reviewed:: Prior labs Lab Data Attestation: I reviewed the patient's lab results. Lab results narrative: CBC was reviewed and was within normal limits. PT with INR and PTT were reviewed. Pro time was 19.2 and INR was 1.6. PTT was normal at 36.2. Comprehensive metabolic profile was reviewed. Glucose was mildly elevated at 127. Creatinine was slightly elevated at 1.46 and BUN was slightly elevated at 30. These are consistent with previous results. High-sensitivity troponin was reviewed and was slightly elevated at 15. 2-hour repeat high-sensitivity troponin was reviewed and was normal at 13. proBNP was reviewed and was elevated at 2409. Lipase was reviewed and was normal at 38. Urinalysis was reviewed. Leukocyte esterase was 100 with 5-10 white blood cells and 3+ bacteria. There are also 5-10 epithelial cells. There are positive nitrites. Labs: Laboratory Results - last 24 hr 10/02/24 10/02/24 10/02/24 18:00 19:30 20:10 WBC 7.4 RBC 4.51 Hgb 12.6 Hct 39.0 MCV 86.5 MCH 27.9 MCHC 32.3 RDW Std Deviation 47.0 H RDW Coeff of Zee 14.9 H Plt Count 287 MPV 9.9 Immature Gran % (Auto) 0.500 Neut % (Auto) 72.3 H Lymph % (Auto) 17.1 L Harmon % (Auto) 6.2 Eos % (Auto) 3.4 Baso % (Auto) 0.5 Absolute Neuts (auto) 5.3 Absolute Lymphs (auto) 1.26 Nucleated RBC % 0 PT 19.2 H INR 1.6 APTT 36.2 Sodium 139 Potassium 4.6 Chloride 102 Carbon Dioxide 23.2 Anion Gap 14 BUN 30 H Creatinine 1.46 H Estim Creat Clear Calc 34.86 L Est GFR (MDRD) Non-Af 38 L BUN/Creatinine Ratio 20.2 H Glucose 127 H Lactic Acid 2.3 H* Calcium 10.1 Total Bilirubin 0.36 AST 31 ALT 16 Alkaline Phosphatase 66 Troponin T High Sens 15 H Troponin T Hi Sens 2 Hr 13 NT pro BNP II 2409 H Total Protein 8.0 Albumin 4.2 Globulin 3.8 Albumin/Globulin Ratio 1.1 Lipase 38 Urine Color Yellow Urine Clarity Sl. Cloudy Urine pH 6.0 Ur Specific [place] 1.010 Urine Protein 15 H Urine Glucose (UA) Normal Urine Ketones Negative Urine Occult Blood 25 H Urine Nitrite Positive H Urine Bilirubin Negative Urine Urobilinogen Normal Ur Leukocyte Esterase 100 H Urine RBC 0 SEEN Urine WBC 5-10 SEEN Ur Squamous Epith Cells 5-10 SEEN Urine Bacteria 3+ Urine Mucus 0 SEEN Radiography Diagnostic Testing: Clinical Impression(s) from Imaging Studies Chest X-Ray 10/02/24 18:38 IMPRESSION: Pulmonary vascular congestion. Mild cardiomegaly. Reading Location: [place] [id number] PA and lateral chest x-ray was obtained. There are 2 views. On my independent interpretation, lung sawyer show pulmonary vascular congestion. There is mild cardiomegaly. Bony thorax is normal. There is no acute process noted. Radiologist also interpreted the x-ray and agrees. EKG Initial EKG: Attestation: I personally reviewed and interpreted this EKG as follows: Interpretation: Atrial Flutter (96) and Non-Specific ST Changes Comments: EKG was obtained. On my independent interpretation, it shows atrial flutter with variable block with a rate of 96. QRS interval was normal at 74 ms. QTc interval was normal at 429 ms. [place] was normal at 55. There are no acute ST or T wave changes noted. Prior EKG tracings: available for review Prior: Unchanged (04/07/2023) Treatment and Re-Evaluation :: Patient was given a dose of Lasix here. The patient was advised of her findings. Patient was given a dose of Rocephin. Patient feels better and wants to go home. Patient states her Lasix was recently increased 5 days ago from 20 mg to 40 mg. Patient was given a prescription for Keflex for her urinary tract infection. Patient was instructed to follow-up with her primary care physician in 3 to 5 days. Patient was instructed to return if worse in any way. Patient understood and was agreeable with the plan. All questions were answered. Discharge Plan Triage Chief Complaint: Wound Check Other Complaint: Complaint Palpitations ED Provider: Wale Barrera Dx/Rx/DC Orders Clinical Impression: Urinary tract infection, Congestive heart failure, Atrial flutter by electrocardiogram Instructions: ED Atrial Flutter, ED Heart Failure, Congestive (CHF), ED Cystitis Female Adult Prescriptions: New cephalexin 500 mg capsule 500 mg PO TID Qty: 15 0RF No Action acetaminophen 325 mg capsule 650 mg PO TID PRN (Reason: Pain) (DME) Xeroform Petrolatum Dressing 5 X 9 bandage See Rx Instructions .Route Qty: 50 0RF Rx Instructions: apply to open area once daily allowing for some open are in the evening (DME) Handicap Placard See Rx Instructions .Route .MEDSUPPLY Qty: 1 0RF Rx Instructions: placard to in 1 (one) calendar year furosemide 40 mg tablet 40 mg PO DAILY Qty: 30 12RF (DME) WOUND CARE See Rx Instructions .Route .MEDSUPPLY Qty: 1 0RF Rx Instructions: cleanse wound, apply moist silvercel and wrap with gauze (DME) compress.stocking,knee,reg,lrg Misc See Rx Instructions .MEDSUPPLY Qty: 2 1RF Rx Instructions: wear daily for venous insufficiency 20-30 mmHg multivitamin Tablet 1 tab PO DAILY Qty: 90 3RF metoprolol tartrate 100 mg tablet 100 mg PO BID Qty: 60 11RF glimepiride 2 mg tablet 2 mg PO DAILY Qty: 90 1RF amlodipine 10 mg tablet 10 mg PO DAILY Qty: 90 0RF metformin 1,000 mg tablet 1,000 mg PO BID Qty: 180 0RF atorvastatin 10 mg tablet 10 mg PO DAILY Qty: 90 0RF ferrous sulfate 325 mg (65 mg iron) tablet 325 mg PO DAILY Qty: 90 3RF cholecalciferol (vitamin D3) 50 mcg (2,000 unit) capsule 50 mcg PO DAILY Qty: 90 3RF sertraline [Zoloft] 100 mg tablet 100 mg PO DAILY Qty: 90 3RF ascorbic acid (vitamin C) [Vitamin C] 500 mg tablet 500 mg PO DAILY Qty: 90 3RF apixaban 5 mg tablet 5 mg PO BID Qty: 180 3RF oxybutynin chloride 15 mg tablet extended release 24hr 15 mg PO QDAY Qty: 90 1RF amiodarone 200 mg tablet 200 mg PO .COMPLEX Qty: 90 3RF Rx Instructions: 200 mg orally; 200 mg p.o. twice daily for 2 weeks (09/24-10/07) followed by 200 mg p.o. daily. Primary Care Provider: Sulma Reagan Referrals: Sulma Reagan MD [Primary Care Provider] - 3-5 Days Print Language: Uruguayan Disposition Disposition: Home, Self Care
--- NOTE | 2024-10-02 17:20 | EKG12_ITS ---
Test Reason : Blood Pressure : */* mmHG Vent. Rate : 96 BPM Atrial Rate : 242 BPM P-R Int : * ms QRS Dur : 74 ms QT Int : 340 ms P-R-T Axes : * 55 -20 degrees QTcB Int : 429 ms Atrial flutter with variable A-V block Nonspecific ST abnormality Abnormal ECG Confirmed by SHERIF CALLOWAY, MILDRED ([id number]), editor magazine AMALIA MEJIA ([id number]) on 10/03/2024 10:36:51 AM Referred By: Confirmed By: MILDRED GORMAN MD
[2024-10-02 18:26] LABS: Absolute Lymphocyte Count 1.26 X10^3/uL (0.83-4.51); Absolute Neutrophil Count 5.3 X10^3/uL (2.0-7.7); Basophil# 0.04 X10^3/uL; Basophil% 0.5 % (0-1); Eosinophil# 0.25 X10^3/uL; Eosinophils% 3.4 % (0-5); Hemoglobin 12.6 g/dL (12.0-15.0); Lymphocyte # 1.26 X10^3/ul (0.83-4.51); Lymphocyte % 17.1 % (19-41); Mean Corp Hgb Conc 32.3 g/dL (32-36); Mean Corpuscular Hgb 27.9 pg (27.0-32.0); Mean Corpuscular Volume 86.5 fL (81-99); Mean Platelet Vol. 9.9 fl (6.2-12.0); Monocyte# 0.46 X10^3/uL; Monocyte% 6.2 % (0-10); NRBC Flagged by Analyzer 0 % (0-5); Neutrophil # 5.32 X10^3/uL (2.7-7.7); Neutrophil % 72.3 % (47-70); Platelet Count 287 K/mm3 (150-450); RBC Distribution Width CV 14.9 % (11.6-14.6); Red Blood Count 4.51 M/mm3 (4.2-5.4); White Blood Count 7.4 K/mm3 (4.4-11.0)
--- NOTE | 2024-10-02 18:38 | RAD_ITS ---
PROCEDURE: CHEST PA AND LATERAL 10/02/2024 REASON FOR EXAM: PALPITATIONS TECHNIQUE: Frontal and lateral views of the chest. COMPARISON: None. FINDINGS: Hardware: Cervical fusion. Heart: Heart size is mildly enlarged. Mediastinum: The mediastinal contour is unremarkable. Lungs: Pulmonary vasculature is congested and indistinct. Pleural septal lines are seen at the bases. Bones: RAD/Chest PA and Lateral IMPRESSION: Pulmonary vascular congestion. Mild cardiomegaly. Reading Location: [place] [id number]
[2024-10-02 18:39] LABS: Lipase 38 U/L (13-75); Pro- Brain NATRIURETIC PEPTIDE 2409 pg/mL (<=900); Troponin T High Sensitivity 15 ng/L (<=14)
[2024-10-02 18:40] LABS: ALB/GLOB Ratio 1.1 RATIO (0.9-2.4); AST(SGOT) 31 U/L (<=31); Alanine Aminotransfer ALT/SGPT 16 U/L (<=34); Albumin, Serum 4.2 g/dL (3.4-4.8); Alkaline Phosphatase 66 U/L (35-104); Anion Gap 14 (5-15); BUN 30 mg/dL (4-19); BUN/Creat Ratio 20.2 RATIO (10-20); Calcium,Total 10.1 mg/dL (7.6-11.0); Carbon Dioxide 23.2 mmol/L (21.0-32.0); Chloride 102 mmol/L (98-108); Creatinine, Serum 1.46 mg/dL (0.70-1.20); EST Glomerular Filtration Rate 38 (>60); Estimated Creatinine Clearance 34.86 ml/min (50-250); Globulin 3.8 g/dL (2.2-4.2); Glucose 127 mg/dL (70-99); Potassium 4.6 mmol/L (3.3-5.1); Sodium Level 139 mmol/L (133-145); Total Bilirubin 0.36 mg/dL (0.00-1.30)
[2024-10-02 18:42] LABS: Lactic Acid 2.3 mmol/L (0.0-2.0)
--- NOTE | 2024-10-02 18:43 | ED.RN ---
Dr Allen notified of critical lactic
[2024-10-02 19:12] LABS: International Normalized Ratio 1.6; Prothrombin Time (Protime)PT. 19.2 SECONDS (11.7-14.9)
[2024-10-02 19:13] LABS: Partial Thromboplast Time 36.2 Seconds (24.1-36.2)
[2024-10-02] MEDS: Furosemide 40 MG/4 ML Vial IV (20:20)
[2024-10-02 20:45] LABS: Mucous, Urine 0 SEEN /hpf (<or=2+); Red Blood Cells-Urine 0 SEEN /hpf (0-5)
[2024-10-02 20:47] LABS: Color, Urine Yellow (Yellow); Glucose, Dipstick Normal (Normal); Ketone-Dipstick Negative (Negative); Leukocyte Esterase-Dipstick 100 /ul (Negative); Nitrite-Dipstick Positive (Negative); Occult Blood-Urine 25 /ul (Negative); Protein-Dipstick 15 mg/dl (Negative); Urine Bilirubin Dipstick Negative (Negative); Urine Clarity Sl. Cloudy (Clear); Urine Urobilinogen Normal (Normal)
[2024-10-02 20:55] LABS: Bacteria 3+ /hpf (None Seen); Squamous Epithelial Cells - UA 5-10 SEEN /hpf (5-10); White Blood Cells 5-10 SEEN /hpf (0-5)
[2024-10-02 21:04] LABS: Troponin T High Sens 2 HR 13 ng/L (<=14)
[2024-10-02] MEDS: Ceftriaxone 1 GM/50 ML BAG IV (21:33)
[2024-10-02 22:07] LABS: Reflex Lactate? Y
== END 2024-10-02 22:28 | disposition home or self-care (01) ==
PROVIDERS: Emergency Provider Emergency Medicine; PCP Internal Medicine; Visit Provider Emergency Medicine
DX: N39.0 Urinary tract infection, site not specified (principal); I13.0 Hypertensive heart and chronic kidney disease with heart failure and stage 1 through stage 4 chronic kidney disease, or unspecified chronic kidney disease; I50.9 Heart failure, unspecified; I48.92 Unspecified atrial flutter; I48.0 Paroxysmal atrial fibrillation; E11.22 Type 2 diabetes mellitus with diabetic chronic kidney disease; N18.32 Chronic kidney disease, stage 3b; Z87.891 Personal history of nicotine dependence; E78.5 Hyperlipidemia, unspecified; Z90.710 Acquired absence of both cervix and uterus; Z86.73 Personal history of transient ischemic attack (TIA), and cerebral infarction without residual deficits; Z79.899 Other long term (current) drug therapy; Z79.84 Long term (current) use of oral hypoglycemic drugs; Z79.01 Long term (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; F41.8 Other specified anxiety disorders; Z96.622 Presence of left artificial elbow joint
CPT/HCPCS: 71046; 80053; 81001; 83605; 83690; 83880; 84484; 85025; 85610; 85730; 87040; 87077; 87086; 87088; 87186; 93005; 96365; 96375; 99285; A4216; J1938

== ENCOUNTER 2024-10-09 08:45 | Outpatient (RCR) | payer MEDICARE, SELFPAY ==
[2024-09-13 00:44] VITALS: BP 103/72; PULSE 140; RESP 18; TEMP 35.8; BMI 32.7
[2024-09-18 09:15] VITALS: BP 126/89; PULSE 136; RESP 18; TEMP 35.8; BMI 32.7
--- NOTE | 2024-09-18 10:27 | PN.PCM_ITS ---
History of Present Illness Date of Service: 09/18/24 Chief Complaint: Multiple, small superficial ulcerations in the lower extr emities bilaterally History of Wound: This 72-year-old white female who presented with bilateral lower extremity ulcerations. They are small in size, but multiple in number. They have been present for a lengthy period of time. 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 The patient has been using silver cell and Alberto wraps. The patient also experiences swelling and edema in her lower extremities. She sleeps in a bed at night. 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 She has been under the care of Dr. Kiran Wolff, plastic surgeon, in this regard. Her recent MRSA infection is said to have been her first and only history of MRSA infections. She underwent surgery on 07/12/22 for surgical preparation right long finger amputation stump ulcer with incision and drainage and excisional debridement MRSA abscess and partial ostectomy middle phalanx for osteomyelitis. Operative tissue cultures positive for Enterobacter cloacae complex and MRSA. Operative bone cultures positive for MRSA and MRSE. She was discharged home on 07/15/22 with a PICC line and IV Vancomycin and oral Cipro. She was seen by ID while hospitalized and was to follow up ID post- discharge. Objective Data Objective Data Vital Signs: Vital Signs Temp Pulse Resp BP 96.5 F L 136 H 18 126/89 H 09/18/24 09:15 09/18/24 09:15 09/18/24 09:15 09/18/24 09:15 Weight: 81.193 kg Body Mass Index (BMI) 32.7 Physical Exam Narrative Vascular: Dorsalis pedis posterior tibial pulses palpable 2 out of 4 to bilateral lower extremity compartments. Some a skin atrophic changes noted bilaterally. Digital hair growth noted bilaterally. +1 pitting edema noted to Vance malleoli regions bilaterally. Neurologic: Light touch and protective sensation absent to bilateral feet. Musculoskeletal: No gross deformity noted muscular strength for the bilateral lower extremity compartments. Dermatologic: Full-thickness ulceration noted to the distal aspect of the right second toe and the lateral aspect of the fifth toe to the right foot. No deep probing undermining or acute signs of infection. Full-thickness ulcerations noted to the anterior medial left leg. No deep probing undermining acute signs of infection noted. Const alert and oriented x3 Debridement Note Debridement Note Post-Debridement Measurements and Additional Note: Post-Debridement Measurements/Treatment - Nurse 1 - General Ulcer Assessment Start: 09/18/24 09:15 Freq: Status: Active Protocol: DENG Activity Type Activity Date Activity User E-sign Co-sign Detail Recorded Client Recorded Date Recorded By Document 09/18/24 09:15 MEMO [id number] 09/18/24 09:18 RB 09/18/24 09:15 WC - Today's Visit Information Type of service Follow-up Visit (Physician/HOSPITALITY TEAM MEMBER ) Arrival Mode Ambulatory, Walker Transfer Assistance None Patient Identification Verified (Name & Yes ) Patient Requires Transmission-Based No Precautions Height and Weight Body Mass Index (BMI) 32.7 BMI Classification Obese Vital Signs Temperature (97.8 F-99.1 F) 96.5 F L Temperature Source Temporal Pulse Rate (60-100) 136 H Pulse Location Monitor Respiratory Rate (12-18) 18 Respiratory rate source Observation Blood Pressure (90/60-120/80) 126/89 H Blood Pressure Mean (mm Hg) 101 Source Monitor Position Sitting Blood Pressure Location Left Arm History Since Last Visit- (Skip if this is Patient's initial visit) Have you changed medications since your No last visit? Any new allergies or adverse reactions No Had a fall/change in ADL's that may No increase risk of falls Signs or symptoms of abuse and/or No neglect since last visit Have you been in the hospital since your No last visit? Has dressing in place as prescribed Yes Has compression in place as prescribed Yes Has offloadiing in place as prescribed N/A Experienced any changes in pain level or No management Left Footwear Regular Shoe Right Footwear Surgical Shoe with pressure relief insole Pain Scale: 0-10 Numeric Is Patient Pain Free? Yes - Nurse 1 - General Ulcer Measurement Start: 09/18/24 09:15 Freq: Status: Active Protocol: Activity Type Activity Date Activity User E-sign Co-sign Detail Recorded Client Recorded Date Recorded By Document 09/18/24 09:15 MEMO [id number] 09/18/24 09:18 RB 09/18/24 09:15 Wound Center Nurse 1 11. 5th TOE LATERAL -Combined with other wound No -Current Size (cm) - Length 0.1 -Current Size (cm) - Width 0.1 -Current Size (cm) - Depth 0.1 -Total Square Cm 0.01 -Photo Taken Yes -Epithelialization Large 67-100% -Undermining/Tunneling No -Circular Undermining No -Exudate Amt None Present -Wound Margin Distinct, Outline Attached -Granulation Amt Large (67-100%) -Granulation Quality [place] -Slough/Fibrin Yes -Necrosis Amt Small (1-33%) -Necrotic Tissue Type Adherent Slough -Structure Exposed N/A -Texture (Jessica-wound Skin Appearance) Assessed -Moisture (Jessica-wound Skin Appearance) Assessed -Color (Jessica-wound Skin Appearance) Assessed -Temperature (Jessica-wound Skin No Abnormality Appearance) (Pt Warm) -Tenderness on Palpation (Jessica-wound No Skin Appearance) -Ulcer Cleansing Wound Cleanser -Foul Odor after Cleansing No -Anesthetic Used 5% Lidocaine Gel 10. R 2nd TOE -Combined with other wound No -Current Size (cm) - Length 0.3 -Current Size (cm) - Width 0.7 -Current Size (cm) - Depth 0.1 -Total Square Cm 0.21 -Photo Taken Yes -Tunneling No -Undermining/Tunneling No -Circular Undermining No -Exudate Amt Medium -Exudate Type Serosanguineous -Wound Margin Distinct, Outline Attached -Granulation Amt Medium (34-66%) -Granulation Quality [place] -Slough/Fibrin Yes -Necrosis Amt Small (1-33%) -Necrotic Tissue Type Adherent Slough -Structure Exposed N/A -Texture (Jessica-wound Skin Appearance) Assessed -Moisture (Jessica-wound Skin Appearance) Assessed -Color (Jessica-wound Skin Appearance) Assessed -Temperature (Jessica-wound Skin No Abnormality Appearance) (Pt Warm) -Tenderness on Palpation (Jessica-wound No Skin Appearance) -Ulcer Cleansing Wound Cleanser -Foul Odor after Cleansing No -Anesthetic Used 5% Lidocaine Gel 9. LLE MEDIAL -Combined with other wound No -Current Size (cm) - Length 0.5 -Current Size (cm) - Width 0.7 -Current Size (cm) - Depth 0.1 -Total Square Cm 0.35 -Photo Taken Yes -Tunneling No -Undermining/Tunneling No -Circular Undermining No -Exudate Amt Medium -Exudate Type Serosanguineous -Wound Margin Distinct, Outline Attached -Granulation Amt Medium (34-66%) -Granulation Quality [place] -Slough/Fibrin Yes -Necrosis Amt Small (1-33%) -Necrotic Tissue Type Adherent Slough -Structure Exposed N/A -Texture (Jessica-wound Skin Appearance) Assessed -Moisture (Jessica-wound Skin Appearance) Assessed -Color (Jessica-wound Skin Appearance) Assessed -Temperature (Jessica-wound Skin No Abnormality Appearance) (Pt Warm) -Tenderness on Palpation (Jessica-wound No Skin Appearance) -Ulcer Cleansing Wound Cleanser -Foul Odor after Cleansing No -Anesthetic Used 5% Lidocaine Gel 8. L NOLASCO CLUSTER -Combined with other wound No -Current Size (cm) - Length 0.1 -Current Size (cm) - Width 0.1 -Current Size (cm) - Depth 0.1 -Total Square Cm 0.01 -Photo Taken Yes -Tunneling No -Undermining/Tunneling No -Circular Undermining No -Exudate Amt Medium -Exudate Type Serosanguineous -Wound Margin Distinct, Outline Attached -Granulation Amt Medium (34-66%) -Granulation Quality [place] -Slough/Fibrin Yes -Necrosis Amt Small (1-33%) -Necrotic Tissue Type Adherent Slough -Structure Exposed N/A -Texture (Jessica-wound Skin Appearance) Assessed -Moisture (Jessica-wound Skin Appearance) Assessed -Color (Jessica-wound Skin Appearance) Assessed -Temperature (Jessica-wound Skin No Abnormality Appearance) (Pt Warm) -Tenderness on Palpation (Jessica-wound No Skin Appearance) -Ulcer Cleansing Wound Cleanser -Foul Odor after Cleansing No -Anesthetic Used 5% Lidocaine Gel Lower Limb Edema Present Yes Right Calf (cm) 34.5 Right Ankle (cm) 20.5 Left Calf (cm) 34.5 Left Ankle (cm) 20.5 WC - Nurse 2 - General Ulcer CM Notes Start: 09/18/24 09:15 Freq: Status: Active Protocol: Activity Type Activity Date Activity User E-sign Co-sign Detail Recorded Client Recorded Date Recorded By Document 09/18/24 09:30 ALBERTO [id number] 09/18/24 09:35 ALBERTO 09/18/24 09:30 Wound Center Nurse 2 11. 5th TOE LATERAL -Time 09:32 -Correct Patient Yes -Correct Side, Site, Position Yes -Correct Procedure Yes -Procedure Performed Yes -Type of Procedure Debridement -Clinical Debridement Subcutaneous -Tissue Removed Subcutaneous -Post Debridement (cm) - Length 0.5 -Post Debridement (cm) - Width 0.5 -Post Debridement (cm) - Depth 0.2 -Total Square (Post) (cm) 0.25 -Area of Debridement (cm) - Length 0.5 -Area of Debridement (cm) - Width 0.5 -Total Square (Area) (cm) 0.25 -Tunneling No -Undermining/Tunneling No -Circular Undermining No -Wound/Ulcer Outcome Not Healed -Ulcer Cleansing Rinsed/ Irrigated with Saline -Foul Odor after Cleansing No -Bioengineered Tissue No -Bleeding Controlled with Pressure -Treatment Response Procedure Tolerated Well -Offloading Yes -Type of Offloading Surgical Shoe -Debridement - Subq, 1st 20sq cm No 10. R 2nd TOE -Time 09:32 -Correct Patient Yes -Correct Side, Site, Position Yes -Correct Procedure Yes -Procedure Performed Yes -Type of Procedure Debridement -Clinical Debridement Subcutaneous -Tissue Removed Subcutaneous -Post Debridement (cm) - Length 0.7 -Post Debridement (cm) - Width 0.4 -Post Debridement (cm) - Depth 0.1 -Total Square (Post) (cm) 0.28 -Area of Debridement (cm) - Length 0.7 -Area of Debridement (cm) - Width 0.4 -Total Square (Area) (cm) 0.28 -Tunneling No -Undermining/Tunneling No -Circular Undermining No -Wound/Ulcer Outcome Not Healed -Ulcer Cleansing Rinsed/ Irrigated with Saline -Foul Odor after Cleansing No -Bioengineered Tissue No -Bleeding Controlled with Pressure -Treatment Response Procedure Tolerated Well -Offloading No -Debridement - Subq, 1st 20sq cm No 9. LLE MEDIAL -Time 09:34 -Correct Patient Yes -Correct Side, Site, Position Yes -Correct Procedure Yes -Procedure Performed Yes -Type of Procedure Debridement -Clinical Debridement Subcutaneous -Tissue Removed Subcutaneous -Post Debridement (cm) - Length 0.5 -Post Debridement (cm) - Width 1.0 -Post Debridement (cm) - Depth 0.1 -Total Square (Post) (cm) 0.50 -Area of Debridement (cm) - Length 0.5 -Area of Debridement (cm) - Width 1.0 -Total Square (Area) (cm) 0.50 -Tunneling No -Undermining/Tunneling No -Circular Undermining No -Wound/Ulcer Outcome Not Healed -Ulcer Cleansing Rinsed/ Irrigated with Saline -Foul Odor after Cleansing No -Bioengineered Tissue No -Bleeding Controlled with Pressure -Treatment Response Procedure Tolerated Well -Offloading No -Debridement - Subq, 1st 20sq cm Yes 8. L NOLASCO CLUSTER -Time 09:34 -Correct Patient Yes -Correct Side, Site, Position Yes -Correct Procedure Yes -Procedure Performed Yes -Type of Procedure Debridement -Clinical Debridement Subcutaneous -Tissue Removed Subcutaneous -Post Debridement (cm) - Length 1.7 -Post Debridement (cm) - Width 1 -Post Debridement (cm) - Depth 0.1 -Total Square (Post) (cm) 1.7 -Area of Debridement (cm) - Length 1.7 -Area of Debridement (cm) - Width 1.0 -Total Square (Area) (cm) 1.70 -Tunneling No -Undermining/Tunneling No -Circular Undermining No -Wound/Ulcer Outcome Not Healed -Ulcer Cleansing Rinsed/ Irrigated with Saline -Foul Odor after Cleansing No -Bioengineered Tissue No -Bleeding Controlled with Pressure -Treatment Response Procedure Tolerated Well -Offloading No -Debridement - Subq, 1st 20sq cm No Pain Scale: 0-10 Numeric Is Patient Pain Free? Yes - Nurse 3 - General Ulcer D/C NN Start: 09/18/24 09:15 Freq: Status: Active Protocol: Activity Type Activity Date Activity User E-sign Co-sign Detail Recorded Client Recorded Date Recorded By Document 09/18/24 09:56 [id number] 09/18/24 09:57 09/18/24 09:56 Wound Care Center Nurse 3 11. 5th TOE LATERAL -Other Dressing hydrogel -Primary Dressing Covered/Secured with Dry Gauze, Secured with Tape 10. R 2nd TOE -Other Dressing hydrogel -Primary Dressing Covered/Secured with Dry Gauze, Secured with Tape 9. LLE MEDIAL -Primary Dressing Applied Aquacel AG 4x4 -Primary Dressing Covered/Secured with Dry Gauze -Aquacel AG 4x4 1 8. L NOLASCO CLUSTER -Other Dressing aquacel ag -Primary Dressing Covered/Secured with Dry Gauze,Dry Gauze & Roll Gauze,Secured with Tape LEFT LEG -Tubular Bandage Double Layer -Size of Tubigrip Used Size F -Size F ($) 2 RIGHT LEG -Multi-Layered Wrap Application Multi-Layer Comp - Right ($ ) -Multi-Layer Compression Right (Qty 1 applied) Pain Scale: 0-10 Numeric Is Patient Pain Free? 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 Vital signs within normal limits. Recent x-rays right foot negative for osteomyelitis. 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 Bilateral lower extremities were excisionally debrided down to including level of subcutaneous tissue of all nonviable tissue using 5 mm dermal curette and 15 blade. No topical anesthesia due to neuropathy. Hemostasis obtained with light compression. Pre and postdebridement measurements document and nursing notes. Patient will offload right foot wounds with surgical shoe. Dress daily with hydrogel dry sterile dressing Tubigrip to right lower extremity. Left lower extremity will dress with silver alginate and 3M compression wrap. Patient will follow-up weekly (2) Non-pressure chronic ulcer of other part of right foot with fat layer exposed: CODE(S): L97.512 - Non-pressure chronic ulcer of other part of right foot with fat layer exposed (3) Non-pressure chronic ulcer of left calf with fat layer exposed: CODE(S): L97.222 - Non-pressure chronic ulcer of left calf with fat layer exposed
--- NOTE | 2024-09-20 10:05 | WC ---
PHOTO 09/18/24 RIGHT 2ND TOE
--- NOTE | 2024-09-20 10:15 | WC ---
PHOTO 09/18/24 RIGHT 5TH TOE
--- NOTE | 2024-09-20 10:18 | WC ---
PHOTO 09/18/24 LEFT NOLASCO CLUSTER
--- NOTE | 2024-09-20 10:20 | WC ---
PHOTO 09/18/24 LEFT MED LEG
[2024-09-25 09:10] VITALS: BP 145/94; PULSE 142; RESP 18; TEMP 35.7; BMI 32.7
--- NOTE | 2024-09-25 09:46 | PCM.WC.PN ---
History of Present Illness Date of Service: 09/25/24 Chief Complaint: Multiple, small superficial ulcerations in the lower extremities bilaterally History of Wound: This 72-year-old white female who presented with bilateral lower extremity ulcerations. They are small in size, but multiple in number. They have been present for a lengthy period of time. 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 The patient has been using silver cell and Alberto wraps. The patient also experiences swelling and edema in her lower extremities. She sleeps in a bed at night. 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 She has been under the care of Dr. Kiran Wolff, plastic surgeon, in this regard. Her recent MRSA infection is said to have been her first and only history of MRSA infections. She underwent surgery on 07/12/22 for surgical preparation right long finger amputation stump ulcer with incision and drainage and excisional debridement MRSA abscess and partial ostectomy middle phalanx for osteomyelitis. Operative tissue cultures positive for Enterobacter cloacae complex and MRSA. Operative bone cultures positive for MRSA and MRSE. She was discharged home on 07/15/22 with a PICC line and IV Vancomycin and oral Cipro. She was seen by ID while hospitalized and was to follow up ID post-discharge. Objective Data Objective Data Vital Signs: Vital Signs Temp Pulse Resp BP O2 Del Method 96.3 F L 142 H 18 145/94 H Room Air 09/25/24 09:10 09/25/24 09:10 09/25/24 09:10 09/25/24 09:10 09/25/24 09:10 Oxygen Delivery Method Room Air Weight: 81.193 kg Body Mass Index (BMI) 32.7 Physical Exam Narrative Vascular: Dorsalis pedis posterior tibial pulses palpable 2 out of 4 to bilateral lower extremity compartments. Some a skin atrophic changes noted bilaterally. Digital hair growth noted bilaterally. +1 pitting edema noted to Vance malleoli regions bilaterally. Neurologic: Light touch and protective sensation absent to bilateral feet. Musculoskeletal: No gross deformity noted muscular strength for the bilateral lower extremity compartments. Dermatologic: Full-thickness ulceration noted to the distal aspect of the right second toe and the lateral aspect of the fifth toe to the right foot. No deep probing undermining or acute signs of infection. Full-thickness ulcerations noted to the anterior medial left leg. No deep probing undermining acute signs of infection noted. Const alert and oriented x3 Debridement Note Debridement Note Post-Debridement Measurements and Additional Note: Post-Debridement Measurements/Treatment - Nurse 1 - General Ulcer Assessment Start: 09/18/24 09:15 Freq: Status: Active Protocol: [email or web address] Activity Type Activity Date Activity User E-sign Co-sign Detail Recorded Client Recorded Date Recorded By Document 09/18/24 09:15 RB [id number] 09/18/24 09:18 RB Document 09/25/24 09:10 KW [id number] 09/25/24 09:19 KW 09/18/24 09/25/24 09:15 09:10 WC - Today's Visit Information Type of service Follow-up Visit Follow-up Visit (Physician/SENIOR ACCOUNTS PAYABLE CLERK (Physician/SENIOR ACCOUNTS PAYABLE CLERK ) ) Arrival Mode Ambulatory, Ambulatory, Walker Walker Transfer Assistance None Patient Identification Verified (Name & Yes Yes ) Patient Requires Transmission-Based No Precautions Height and Weight Body Mass Index (BMI) 32.7 32.7 BMI Classification Obese Obese Vital Signs Temperature (97.8 F-99.1 F) 96.5 F L 96.3 F L Temperature Source Temporal Temporal Pulse Rate (60-100) 136 H 142 H Pulse Location Monitor Monitor Respiratory Rate (12-18) 18 18 Respiratory rate source Observation Observation Oxygen Delivery Method Room Air Blood Pressure (90/60-120/80) 126/89 H 145/94 H Blood Pressure Mean (mm Hg) 101 111 Source Monitor Monitor Position Sitting Semi-Fowlers Blood Pressure Location Left Arm Left Arm History Since Last Visit- (Skip if this is Patient's initial visit) Have you changed medications since your No No last visit? Any new allergies or adverse reactions No No Had a fall/change in ADL's that may No No increase risk of falls Signs or symptoms of abuse and/or No No neglect since last visit Have you been in the hospital since your No No last visit? Has dressing in place as prescribed Yes Yes Has compression in place as prescribed Yes Yes Has offloadiing in place as prescribed N/A Yes Experienced any changes in pain level or No No management Left Footwear Regular Shoe Regular Shoe Right Footwear Surgical Shoe Surgical Shoe with pressure with pressure relief insole relief insole Pain Scale: 0-10 Numeric Is Patient Pain Free? Yes Yes - Nurse 1 - General Ulcer Measurement Start: 09/18/24 09:15 Freq: Status: Active Protocol: Activity Type Activity Date Activity User E-sign Co-sign Detail Recorded Client Recorded Date Recorded By Document 09/18/24 09:15 RB [id number] 09/18/24 09:18 RB Document 09/25/24 09:10 KW [id number] 09/25/24 09:19 KW 09/18/24 09/25/24 09:15 09:10 Wound Center Nurse 1 8. L NOLASCO CLUSTER -Combined with other wound No -Current Size (cm) - Length 0.1 0.1 -Current Size (cm) - Width 0.1 0.1 -Current Size (cm) - Depth 0.1 0.1 -Total Square Cm 0.01 0.01 -Photo Taken Yes -Tunneling No -Undermining/Tunneling No -Circular Undermining No -Exudate Amt Medium None Present -Exudate Type Serosanguineous -Wound Margin Distinct, Outline Attached -Granulation Amt Medium (34-66%) Large (67-100%) -Granulation Quality [place] Red -Slough/Fibrin Yes -Necrosis Amt Small (1-33%) -Necrotic Tissue Type Adherent Slough -Structure Exposed N/A -Texture (Jessica-wound Skin Appearance) Assessed Assessed -Moisture (Jessica-wound Skin Appearance) Assessed Assessed -Color (Jessica-wound Skin Appearance) Assessed Assessed -Temperature (Jessica-wound Skin No Abnormality No Abnormality Appearance) (Pt Warm) (Pt Warm) -Tenderness on Palpation (Jessica-wound No No Skin Appearance) -Ulcer Cleansing Wound Cleanser Soap and Water -Foul Odor after Cleansing No No -Anesthetic Used 5% Lidocaine Gel 11. 5th TOE LATERAL -Combined with other wound No -Current Size (cm) - Length 0.1 0.1 -Current Size (cm) - Width 0.1 0.1 -Current Size (cm) - Depth 0.1 0.1 -Total Square Cm 0.01 0.01 -Photo Taken Yes -Epithelialization Large 67-100% -Undermining/Tunneling No -Circular Undermining No -Exudate Amt None Present Small -Exudate Type Serosanguineous -Wound Margin Distinct, Distinct, Outline Outline Attached Attached -Granulation Amt Large (67-100%) None Present (0 %) -Granulation Quality [place] -Slough/Fibrin Yes -Necrosis Amt Small (1-33%) Large (67-100%) -Necrotic Tissue Type Adherent Slough Adherent Slough -Structure Exposed N/A -Texture (Jessica-wound Skin Appearance) Assessed Assessed,Callus -Moisture (Jessica-wound Skin Appearance) Assessed Assessed -Color (Jessica-wound Skin Appearance) Assessed Assessed -Temperature (Jessica-wound Skin No Abnormality No Abnormality Appearance) (Pt Warm) (Pt Warm) -Tenderness on Palpation (Jessica-wound No No Skin Appearance) -Ulcer Cleansing Wound Cleanser Soap and Water -Foul Odor after Cleansing No No -Anesthetic Used 5% Lidocaine 5% Lidocaine Gel Gel 10. R 2nd TOE -Combined with other wound No -Current Size (cm) - Length 0.3 0.3 -Current Size (cm) - Width 0.7 0.5 -Current Size (cm) - Depth 0.1 0.1 -Total Square Cm 0.21 0.15 -Photo Taken Yes -Tunneling No -Undermining/Tunneling No -Circular Undermining No -Exudate Amt Medium Small -Exudate Type Serosanguineous Serosanguineous -Wound Margin Distinct, Distinct, Outline Outline Attached Attached -Granulation Amt Medium (34-66%) Large (67-100%) -Granulation Quality [place] Red -Slough/Fibrin Yes -Necrosis Amt Small (1-33%) -Necrotic Tissue Type Adherent Slough -Structure Exposed N/A -Texture (Jessica-wound Skin Appearance) Assessed Assessed,Callus -Moisture (Jessica-wound Skin Appearance) Assessed Assessed -Color (Jessica-wound Skin Appearance) Assessed Assessed -Temperature (Jessica-wound Skin No Abnormality No Abnormality Appearance) (Pt Warm) (Pt Warm) -Tenderness on Palpation (Jessica-wound No No Skin Appearance) -Ulcer Cleansing Wound Cleanser Soap and Water -Foul Odor after Cleansing No No -Anesthetic Used 5% Lidocaine 5% Lidocaine Gel Gel 9. LLE MEDIAL -Combined with other wound No -Current Size (cm) - Length 0.5 0.5 -Current Size (cm) - Width 0.7 0.4 -Current Size (cm) - Depth 0.1 0.1 -Total Square Cm 0.35 0.20 -Photo Taken Yes -Tunneling No -Undermining/Tunneling No -Circular Undermining No -Exudate Amt Medium Small -Exudate Type Serosanguineous Serosanguineous -Wound Margin Distinct, Distinct, Outline Outline Attached Attached -Granulation Amt Medium (34-66%) Medium (34-66%) -Granulation Quality [place] Red -Slough/Fibrin Yes -Necrosis Amt Small (1-33%) Medium (34-66%) -Necrotic Tissue Type Adherent Slough Adherent Slough -Structure Exposed N/A -Texture (Jessica-wound Skin Appearance) Assessed Assessed -Moisture (Jessica-wound Skin Appearance) Assessed Assessed -Color (Jessica-wound Skin Appearance) Assessed Assessed -Temperature (Jessica-wound Skin No Abnormality No Abnormality Appearance) (Pt Warm) (Pt Warm) -Tenderness on Palpation (Jessica-wound No No Skin Appearance) -Ulcer Cleansing Wound Cleanser Soap and Water -Foul Odor after Cleansing No No -Anesthetic Used 5% Lidocaine 5% Lidocaine Gel Gel Lower Limb Edema Present Yes Right Calf (cm) 34.5 33.5 Right Ankle (cm) 20.5 19 Left Calf (cm) 34.5 33 Left Ankle (cm) 20.5 20 - Nurse 2 - General Ulcer CM Notes Start: 09/18/24 09:15 Freq: Status: Active Protocol: Activity Type Activity Date Activity User E-sign Co-sign Detail Recorded Client Recorded Date Recorded By Document 09/18/24 09:30 JF [id number] 09/18/24 09:35 Document 09/25/24 09:40 JF [id number] 09/25/24 09:45 09/18/24 09/25/24 09:30 09:40 Wound Center Nurse 2 8. L NOLASCO CLUSTER -Time 09:34 -Correct Patient Yes Yes -Correct Side, Site, Position Yes No -Correct Procedure Yes No -Procedure Performed Yes No -Type of Procedure Debridement -Clinical Debridement Subcutaneous -Tissue Removed Subcutaneous -Post Debridement (cm) - Length 1.7 0 -Post Debridement (cm) - Width 1 0 -Post Debridement (cm) - Depth 0.1 0 -Total Square (Post) (cm) 1.7 0 -Area of Debridement (cm) - Length 1.7 0 -Area of Debridement (cm) - Width 1.0 0 -Total Square (Area) (cm) 1.70 0 -Tunneling No -Undermining/Tunneling No -Circular Undermining No -Wound/Ulcer Outcome Not Healed Healed- Epithelialized -Ulcer Cleansing Rinsed/ Irrigated with Saline -Foul Odor after Cleansing No -Bioengineered Tissue No -Bleeding Controlled with Pressure -Treatment Response Procedure Tolerated Well -Offloading No -Debridement - Subq, 1st 20sq cm No 11. 5th TOE LATERAL -Time 09:42 -Correct Patient Yes Yes -Correct Side, Site, Position Yes Yes -Correct Procedure Yes Yes -Procedure Performed Yes Yes -Type of Procedure Debridement Debridement -Clinical Debridement Subcutaneous Subcutaneous -Tissue Removed Subcutaneous Subcutaneous -Post Debridement (cm) - Length 0.5 0.5 -Post Debridement (cm) - Width 0.5 0.6 -Post Debridement (cm) - Depth 0.2 0.1 -Total Square (Post) (cm) 0.25 0.30 -Area of Debridement (cm) - Length 0.5 0.5 -Area of Debridement (cm) - Width 0.5 0.6 -Total Square (Area) (cm) 0.25 0.30 -Tunneling No No -Undermining/Tunneling No No -Circular Undermining No No -Wound/Ulcer Outcome Not Healed Not Healed -Ulcer Cleansing Rinsed/ Rinsed/ Irrigated with Irrigated with Saline Saline -Foul Odor after Cleansing No No -Bioengineered Tissue No No -Bleeding Controlled with Pressure Pressure -Treatment Response Procedure Procedure Tolerated Well Tolerated Well -Offloading Yes Yes -Type of Offloading Surgical Shoe Surgical Shoe -Debridement - Subq, 1st 20sq cm No No 10. R 2nd TOE -Time 09:41 -Correct Patient Yes Yes -Correct Side, Site, Position Yes Yes -Correct Procedure Yes Yes -Procedure Performed Yes Yes -Type of Procedure Debridement Debridement -Clinical Debridement Subcutaneous Subcutaneous -Tissue Removed Subcutaneous Subcutaneous -Post Debridement (cm) - Length 0.7 1.0 -Post Debridement (cm) - Width 0.4 0.5 -Post Debridement (cm) - Depth 0.1 0.1 -Total Square (Post) (cm) 0.28 0.50 -Area of Debridement (cm) - Length 0.7 1.0 -Area of Debridement (cm) - Width 0.4 0.5 -Total Square (Area) (cm) 0.28 0.50 -Tunneling No No -Undermining/Tunneling No No -Circular Undermining No No -Wound/Ulcer Outcome Not Healed Not Healed -Ulcer Cleansing Rinsed/ Rinsed/ Irrigated with Irrigated with Saline Saline -Foul Odor after Cleansing No No -Bioengineered Tissue No No -Bleeding Controlled with Pressure Pressure -Treatment Response Procedure Procedure Tolerated Well Tolerated Well -Offloading No Yes -Type of Offloading Surgical Shoe -Debridement - Subq, 1st 20sq cm No Yes 9. LLE MEDIAL -Time 09:34 09:44 -Correct Patient Yes Yes -Correct Side, Site, Position Yes Yes -Correct Procedure Yes Yes -Procedure Performed Yes Yes -Type of Procedure Debridement Debridement -Clinical Debridement Subcutaneous Subcutaneous -Tissue Removed Subcutaneous Subcutaneous -Post Debridement (cm) - Length 0.5 0.4 -Post Debridement (cm) - Width 1.0 0.5 -Post Debridement (cm) - Depth 0.1 0.1 -Total Square (Post) (cm) 0.50 0.20 -Area of Debridement (cm) - Length 0.5 0.4 -Area of Debridement (cm) - Width 1.0 0.5 -Total Square (Area) (cm) 0.50 0.20 -Tunneling No No -Undermining/Tunneling No No -Circular Undermining No No -Wound/Ulcer Outcome Not Healed Not Healed -Ulcer Cleansing Rinsed/ Rinsed/ Irrigated with Irrigated with Saline Saline -Foul Odor after Cleansing No No -Bioengineered Tissue No No -Bleeding Controlled with Pressure Pressure -Treatment Response Procedure Procedure Tolerated Well Tolerated Well -Offloading No No -Debridement - Subq, 1st 20sq cm Yes No Pain Scale: 0-10 Numeric Is Patient Pain Free? Yes Yes - Nurse 3 - General Ulcer D/C NN Start: 09/18/24 09:15 Freq: Status: Active Protocol: Activity Type Activity Date Activity User E-sign Co-sign Detail Recorded Client Recorded Date Recorded By Document 09/18/24 09:56 KW [id number] 09/18/24 09:57 KW Edit Result 09/18/24 09:56 KW (1) [id number] 09/20/24 12:12 KW (1) LEFT LEG - Multi-Layered Wrap Application => Multi-Layer Comp - => Left ($) - Tubular Bandage Double Layer => - Size of Tubigrip Used Size F => - Size F ($) 2 => - Multi-Layer Compression Left (Qty => 1 applied) RIGHT LEG - Multi-Layered Wrap Application Multi-Layer Comp - => Right ($) => - Tubular Bandage => Double Layer - Size of Tubigrip Used => Size F - Size F ($) => 2 09/18/24 09:56 Wound Care Center Nurse 3 8. L NOLASCO CLUSTER -Other Dressing aquacel ag -Primary Dressing Covered/Secured with Dry Gauze,Dry Gauze & Roll Gauze,Secured with Tape 11. 5th TOE LATERAL -Other Dressing hydrogel -Primary Dressing Covered/Secured with Dry Gauze, Secured with Tape 10. R 2nd TOE -Other Dressing hydrogel -Primary Dressing Covered/Secured with Dry Gauze, Secured with Tape 9. LLE MEDIAL -Primary Dressing Applied Aquacel AG 4x4 -Primary Dressing Covered/Secured with Dry Gauze -Aquacel AG 4x4 1 LEFT LEG -Multi-Layered Wrap Application Multi-Layer Comp - Left ($) -Multi-Layer Compression Left (Qty 1 applied) RIGHT LEG -Tubular Bandage Double Layer -Size of Tubigrip Used Size F -Size F ($) 2 -Multi-Layer Compression Right (Qty 1 applied) Pain Scale: 0-10 Numeric Is Patient Pain Free? Yes WC - Visit Discharge Discharge Condition Stable Ambulatory Status Ambulatory, Walker Transportation Private Auto Medication Reconcilliation completed & No provided to patient/care provider Clinical Summary of Care Provided Yes Assessment/Plan Assessment/Plan (1) Type 2 diabetes mellitus with diabetic polyneuropathy: CODE(S): E11.42 - Type 2 diabetes mellitus with diabetic polyneuropathy QUALIFIERS: Diabetes mellitus snf insulin use: with snf use Qualified Code(s): E11.42 - Type 2 diabetes mellitus with diabetic polyneuropathy; Z79.4 - supervisor spring up (current) use of insulin PLAN: Exam performed. Vital signs within normal limits. Recent x-rays right foot negative for osteomyelitis. 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 Bilateral lower extremities were excisionally debrided down to including level of subcutaneous tissue of all nonviable tissue using 5 mm dermal curette and 15 blade. No topical anesthesia due to neuropathy. Hemostasis obtained with light compression. Pre and postdebridement measurements document and nursing notes. Patient will offload right foot wounds with surgical shoe. Dress daily with hydrogel dry sterile dressing Tubigrip to right lower extremity. Left lower extremity will dress with silver alginate and 3M compression wrap. Patient will follow-up weekly (2) Non-pressure chronic ulcer of other part of right foot with fat layer exposed: CODE(S): L97.512 - Non-pressure chronic ulcer of other part of right foot with fat layer exposed (3) Non-pressure chronic ulcer of left calf with fat layer exposed: CODE(S): L97.222 - Non-pressure chronic ulcer of left calf with fat layer exposed
[2024-10-02 08:44] VITALS: BP 157/98; PULSE 126; RESP 18; TEMP 36.4; BMI 32.7
--- NOTE | 2024-10-02 09:10 | PN.PCM_ITS ---
History of Present Illness Date of Service: 10/02/24 Chief Complaint: Multiple, small superficial ulcerations in the lower extr emities bilaterally History of Wound: This 72-year-old white female who presented with bilateral lower extremity ulcerations. They are small in size, but multiple in number. They have been present for a lengthy period of time. 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 The patient has been using silver cell and Alberto wraps. The patient also experiences swelling and edema in her lower extremities. She sleeps in a bed at night. 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 She has been under the care of Dr. Kiran Wolff, plastic surgeon, in this regard. Her recent MRSA infection is said to have been her first and only history of MRSA infections. She underwent surgery on 07/12/22 for surgical preparation right long finger amputation stump ulcer with incision and drainage and excisional debridement MRSA abscess and partial ostectomy middle phalanx for osteomyelitis. Operative tissue cultures positive for Enterobacter cloacae complex and MRSA. Operative bone cultures positive for MRSA and MRSE. She was discharged home on 07/15/22 with a PICC line and IV Vancomycin and oral Cipro. She was seen by ID while hospitalized and was to follow up ID post- discharge. Objective Data Objective Data Vital Signs: Vital Signs Temp Pulse Resp BP O2 Del Method 97.6 F L 126 H 18 157/98 H Room Air 10/02/24 08:44 10/02/24 08:44 10/02/24 08:44 10/02/24 08:44 10/02/24 08:44 Oxygen Delivery Method Room Air Weight: 81.193 kg Body Mass Index (BMI) 32.7 Physical Exam Narrative Vascular: Dorsalis pedis posterior tibial pulses palpable 2 out of 4 to bilateral lower extremity compartments. Some a skin atrophic changes noted bilaterally. Digital hair growth noted bilaterally. +1 pitting edema noted to Vance malleoli regions bilaterally. Neurologic: Light touch and protective sensation absent to bilateral feet. Musculoskeletal: No gross deformity noted muscular strength for the bilateral lower extremity compartments. Dermatologic: Full-thickness ulceration noted to the distal aspect of the right second toe. Healed wounds to lateral aspect of the fifth toe to the right foot. No deep probing undermining or acute signs of infection. Full-thickness ulcerations noted to the anterior medial left leg - healed. No deep probing undermining acute signs of infection noted. Const alert and oriented x3 Debridement Note Debridement Note Post-Debridement Measurements and Additional Note: Post-Debridement Measurements/Treatment - Nurse 1 - General Ulcer Assessment Start: 09/18/24 09:15 Freq: Status: Active Protocol: [email or web address] Activity Type Activity Date Activity User E-sign Co-sign Detail Recorded Client Recorded Date Recorded By Document 09/18/24 09:15 RB [id number] 09/18/24 09:18 RB Document 09/25/24 09:10 KW [id number] 09/25/24 09:19 KW Document 10/02/24 08:44 KW [id number] 10/02/24 08:49 KW 09/18/24 09/25/24 10/02/24 09:15 09:10 08:44 - Today's Visit Information Type of service Follow-up Visit Follow-up Visit Follow-up Visit (Physician/SALES OPERATIONS DIRECTOR (Physician/SALES OPERATIONS DIRECTOR (Physician/SALES OPERATIONS DIRECTOR ) ) ) Arrival Mode Ambulatory, Ambulatory, Ambulatory, Walker Walker Walker Transfer Assistance None Patient Identification Verified (Name & Yes Yes Yes ) Patient Requires Transmission-Based No Precautions Height and Weight Body Mass Index (BMI) 32.7 32.7 32.7 BMI Classification Obese Obese Obese Vital Signs Temperature (97.8 F-99.1 F) 96.5 F L 96.3 F L 97.6 F L Temperature Source Temporal Temporal Temporal Pulse Rate (60-100) 136 H 142 H 126 H Pulse Location Monitor Monitor Monitor Respiratory Rate (12-18) 18 18 18 Respiratory rate source Observation Observation Observation Oxygen Delivery Method Room Air Room Air Blood Pressure (90/60-120/80) 126/89 H 145/94 H 157/98 H Blood Pressure Mean (mm Hg) 101 111 117 Source Monitor Monitor Monitor Position Sitting Semi-Fowlers Semi-Fowlers Blood Pressure Location Left Arm Left Arm Left Arm History Since Last Visit- (Skip if this is Patient's initial visit) Have you changed medications since your No No No last visit? Any new allergies or adverse reactions No No No Had a fall/change in ADL's that may No No No increase risk of falls Signs or symptoms of abuse and/or No No No neglect since last visit Have you been in the hospital since your No No No last visit? Has dressing in place as prescribed Yes Yes Yes Has compression in place as prescribed Yes Yes Yes Has offloadiing in place as prescribed N/A Yes Yes Experienced any changes in pain level or No No No management Left Footwear Regular Shoe Regular Shoe Regular Shoe Right Footwear Surgical Shoe Surgical Shoe Surgical Shoe with pressure with pressure with pressure relief insole relief insole relief insole Pain Scale: 0-10 Numeric Is Patient Pain Free? Yes Yes Yes WC - Nurse 1 - General Ulcer Measurement Start: 09/18/24 09:15 Freq: Status: Active Protocol: Activity Type Activity Date Activity User E-sign Co-sign Detail Recorded Client Recorded Date Recorded By Document 09/18/24 09:15 RB [id number] 09/18/24 09:18 RB Document 09/25/24 09:10 KW [id number] 09/25/24 09:19 KW Document 10/02/24 08:44 KW [id number] 10/02/24 08:49 KW 09/18/24 09/25/24 10/02/24 09:15 09:10 08:44 Wound Center Nurse 1 11. 5th TOE LATERAL -Combined with other wound No -Current Size (cm) - Length 0.1 0.1 0.1 -Current Size (cm) - Width 0.1 0.1 0.1 -Current Size (cm) - Depth 0.1 0.1 0 -Total Square Cm 0.01 0.01 0.01 -Date of Last Picture (Recall this 10/02/24 field) -Photo Taken Yes -Epithelialization Large 67-100% -Undermining/Tunneling No -Circular Undermining No -Exudate Amt None Present Small None Present -Exudate Type Serosanguineous -Wound Margin Distinct, Distinct, Outline Outline Attached Attached -Granulation Amt Large (67-100%) None Present (0 %) -Granulation Quality [place] -Slough/Fibrin Yes -Necrosis Amt Small (1-33%) Large (67-100%) -Necrotic Tissue Type Adherent Slough Adherent Slough -Structure Exposed N/A -Texture (Jessica-wound Skin Appearance) Assessed Assessed,Callus Assessed -Moisture (Jessica-wound Skin Appearance) Assessed Assessed Assessed -Color (Jessica-wound Skin Appearance) Assessed Assessed Assessed -Temperature (Jessica-wound Skin No Abnormality No Abnormality No Abnormality Appearance) (Pt Warm) (Pt Warm) (Pt Warm) -Tenderness on Palpation (Jessica-wound No No No Skin Appearance) -Ulcer Cleansing Wound Cleanser Soap and Water -Foul Odor after Cleansing No No No -Anesthetic Used 5% Lidocaine 5% Lidocaine Gel Gel 9. LLE MEDIAL -Combined with other wound No -Current Size (cm) - Length 0.5 0.5 -Current Size (cm) - Width 0.7 0.4 -Current Size (cm) - Depth 0.1 0.1 -Total Square Cm 0.35 0.20 -Photo Taken Yes -Tunneling No -Undermining/Tunneling No -Circular Undermining No -Exudate Amt Medium Small -Exudate Type Serosanguineous Serosanguineous -Wound Margin Distinct, Distinct, Outline Outline Attached Attached -Granulation Amt Medium (34-66%) Medium (34-66%) -Granulation Quality [place] Red -Slough/Fibrin Yes -Necrosis Amt Small (1-33%) Medium (34-66%) -Necrotic Tissue Type Adherent Slough Adherent Slough -Structure Exposed N/A -Texture (Jessica-wound Skin Appearance) Assessed Assessed -Moisture (Jessica-wound Skin Appearance) Assessed Assessed -Color (Jessica-wound Skin Appearance) Assessed Assessed -Temperature (Jessica-wound Skin No Abnormality No Abnormality Appearance) (Pt Warm) (Pt Warm) -Tenderness on Palpation (Jessica-wound No No Skin Appearance) -Ulcer Cleansing Wound Cleanser Soap and Water -Foul Odor after Cleansing No No -Anesthetic Used 5% Lidocaine 5% Lidocaine Gel Gel 8. L NOLASCO CLUSTER -Combined with other wound No -Current Size (cm) - Length 0.1 0.1 -Current Size (cm) - Width 0.1 0.1 -Current Size (cm) - Depth 0.1 0.1 -Total Square Cm 0.01 0.01 -Photo Taken Yes -Tunneling No -Undermining/Tunneling No -Circular Undermining No -Exudate Amt Medium None Present -Exudate Type Serosanguineous -Wound Margin Distinct, Outline Attached -Granulation Amt Medium (34-66%) Large (67-100%) -Granulation Quality [place] Red -Slough/Fibrin Yes -Necrosis Amt Small (1-33%) -Necrotic Tissue Type Adherent Slough -Structure Exposed N/A -Texture (Jessica-wound Skin Appearance) Assessed Assessed -Moisture (Jessica-wound Skin Appearance) Assessed Assessed -Color (Jessica-wound Skin Appearance) Assessed Assessed -Temperature (Jessica-wound Skin No Abnormality No Abnormality Appearance) (Pt Warm) (Pt Warm) -Tenderness on Palpation (Jessica-wound No No Skin Appearance) -Ulcer Cleansing Wound Cleanser Soap and Water -Foul Odor after Cleansing No No -Anesthetic Used 5% Lidocaine Gel 10. R 2nd TOE -Combined with other wound No -Current Size (cm) - Length 0.3 0.3 0.2 -Current Size (cm) - Width 0.7 0.5 0.5 -Current Size (cm) - Depth 0.1 0.1 0.2 -Total Square Cm 0.21 0.15 0.10 -Date of Last Picture (Recall this 10/02/24 field) -Photo Taken Yes -Tunneling No -Undermining/Tunneling No -Circular Undermining No -Exudate Amt Medium Small Small -Exudate Type Serosanguineous Serosanguineous Serosanguineous -Wound Margin Distinct, Distinct, Distinct, Outline Outline Outline Attached Attached Attached -Granulation Amt Medium (34-66%) Large (67-100%) Large (67-100%) -Granulation Quality [place] Red Red -Slough/Fibrin Yes -Necrosis Amt Small (1-33%) -Necrotic Tissue Type Adherent Slough -Structure Exposed N/A -Texture (Jessica-wound Skin Appearance) Assessed Assessed,Callus Assessed -Moisture (Jesscia-wound Skin Appearance) Assessed Assessed Assessed -Color (Jessica-wound Skin Appearance) Assessed Assessed Assessed -Temperature (Jessica-wound Skin No Abnormality No Abnormality No Abnormality Appearance) (Pt Warm) (Pt Warm) (Pt Warm) -Tenderness on Palpation (Jessica-wound No No No Skin Appearance) -Ulcer Cleansing Wound Cleanser Soap and Water Rinsed/ Irrigated with Saline -Foul Odor after Cleansing No No -Anesthetic Used 5% Lidocaine 5% Lidocaine 5% Lidocaine Gel Gel Gel Lower Limb Edema Present Yes Right Calf (cm) 34.5 33.5 33.8 Right Ankle (cm) 20.5 19 20 Left Calf (cm) 34.5 33 34 Left Ankle (cm) 20.5 20 19.5 WC - Nurse 2 - General Ulcer CM Notes Start: 09/18/24 09:15 Freq: Status: Active Protocol: Activity Type Activity Date Activity User E-sign Co-sign Detail Recorded Client Recorded Date Recorded By Document 09/18/24 09:30 [id number] 09/18/24 09:35 JF Document 09/25/24 09:40 [id number] 09/25/24 09:45 JF Document 10/02/24 09:08 [id number] 10/02/24 09:09 JF 09/18/24 09/25/24 10/02/24 09:30 09:40 09:08 Wound Center Nurse 2 11. 5th TOE LATERAL -Time 09:32 09:42 -Correct Patient Yes Yes Yes -Correct Side, Site, Position Yes Yes No -Correct Procedure Yes Yes No -Procedure Performed Yes Yes No -Type of Procedure Debridement Debridement -Clinical Debridement Subcutaneous Subcutaneous -Tissue Removed Subcutaneous Subcutaneous -Post Debridement (cm) - Length 0.5 0.5 0 -Post Debridement (cm) - Width 0.5 0.6 0 -Post Debridement (cm) - Depth 0.2 0.1 0 -Total Square (Post) (cm) 0.25 0.30 0 -Area of Debridement (cm) - Length 0.5 0.5 0 -Area of Debridement (cm) - Width 0.5 0.6 0 -Total Square (Area) (cm) 0.25 0.30 0 -Tunneling No No -Undermining/Tunneling No No -Circular Undermining No No -Wound/Ulcer Outcome Not Healed Not Healed Healed- Epithelialized -Ulcer Cleansing Rinsed/ Rinsed/ Irrigated with Irrigated with Saline Saline -Foul Odor after Cleansing No No -Bioengineered Tissue No No -Bleeding Controlled with Pressure Pressure -Treatment Response Procedure Procedure Tolerated Well Tolerated Well -Offloading Yes Yes -Type of Offloading Surgical Shoe Surgical Shoe -Debridement - Subq, 1st 20sq cm No No 9. LLE MEDIAL -Time 09:34 09:44 -Correct Patient Yes Yes Yes -Correct Side, Site, Position Yes Yes No -Correct Procedure Yes Yes No -Procedure Performed Yes Yes No -Type of Procedure Debridement Debridement -Clinical Debridement Subcutaneous Subcutaneous -Tissue Removed Subcutaneous Subcutaneous -Post Debridement (cm) - Length 0.5 0.4 0 -Post Debridement (cm) - Width 1.0 0.5 0 -Post Debridement (cm) - Depth 0.1 0.1 0 -Total Square (Post) (cm) 0.50 0.20 0 -Area of Debridement (cm) - Length 0.5 0.4 0 -Area of Debridement (cm) - Width 1.0 0.5 0 -Total Square (Area) (cm) 0.50 0.20 0 -Tunneling No No -Undermining/Tunneling No No -Circular Undermining No No -Wound/Ulcer Outcome Not Healed Not Healed Healed- Epithelialized -Ulcer Cleansing Rinsed/ Rinsed/ Irrigated with Irrigated with Saline Saline -Foul Odor after Cleansing No No -Bioengineered Tissue No No -Bleeding Controlled with Pressure Pressure -Treatment Response Procedure Procedure Tolerated Well Tolerated Well -Offloading No No -Debridement - Subq, 1st 20sq cm Yes No 8. L NOLASCO CLUSTER -Time 09:34 -Correct Patient Yes Yes -Correct Side, Site, Position Yes No -Correct Procedure Yes No -Procedure Performed Yes No -Type of Procedure Debridement -Clinical Debridement Subcutaneous -Tissue Removed Subcutaneous -Post Debridement (cm) - Length 1.7 0 -Post Debridement (cm) - Width 1 0 -Post Debridement (cm) - Depth 0.1 0 -Total Square (Post) (cm) 1.7 0 -Area of Debridement (cm) - Length 1.7 0 -Area of Debridement (cm) - Width 1.0 0 -Total Square (Area) (cm) 1.70 0 -Tunneling No -Undermining/Tunneling No -Circular Undermining No -Wound/Ulcer Outcome Not Healed Healed- Epithelialized -Ulcer Cleansing Rinsed/ Irrigated with Saline -Foul Odor after Cleansing No -Bioengineered Tissue No -Bleeding Controlled with Pressure -Treatment Response Procedure Tolerated Well -Offloading No -Debridement - Subq, 1st 20sq cm No 10. R 2nd TOE -Time 09:32 09:41 09:08 -Correct Patient Yes Yes Yes -Correct Side, Site, Position Yes Yes Yes -Correct Procedure Yes Yes Yes -Procedure Performed Yes Yes Yes -Type of Procedure Debridement Debridement Debridement -Clinical Debridement Subcutaneous Subcutaneous Subcutaneous -Tissue Removed Subcutaneous Subcutaneous -Post Debridement (cm) - Length 0.7 1.0 0.7 -Post Debridement (cm) - Width 0.4 0.5 0.3 -Post Debridement (cm) - Depth 0.1 0.1 0.1 -Total Square (Post) (cm) 0.28 0.50 0.21 -Area of Debridement (cm) - Length 0.7 1.0 0.7 -Area of Debridement (cm) - Width 0.4 0.5 0.3 -Total Square (Area) (cm) 0.28 0.50 0.21 -Tunneling No No No -Undermining/Tunneling No No No -Circular Undermining No No No -Wound/Ulcer Outcome Not Healed Not Healed Not Healed -Ulcer Cleansing Rinsed/ Rinsed/ Rinsed/ Irrigated with Irrigated with Irrigated with Saline Saline Saline -Foul Odor after Cleansing No No No -Bioengineered Tissue No No No -Bleeding Controlled with Pressure Pressure Pressure -Treatment Response Procedure Procedure Procedure Tolerated Well Tolerated Well Tolerated Well -Offloading No Yes -Type of Offloading Surgical Shoe -Debridement - Subq, 1st 20sq cm No Yes Yes Pain Scale: 0-10 Numeric Is Patient Pain Free? Yes Yes Yes WC - Nurse 3 - General Ulcer D/C NN Start: 09/18/24 09:15 Freq: Status: Active Protocol: Activity Type Activity Date Activity User E-sign Co-sign Detail Recorded Client Recorded Date Recorded By Document 09/18/24 09:56 KW [id number] 09/18/24 09:57 KW Edit Result 09/18/24 09:56 KW (1) [id number] 09/20/24 12:12 KW Document 09/25/24 10:09 RB [id number] 09/25/24 10:10 RB (1) LEFT LEG - Multi-Layered Wrap Application => Multi-Layer Comp - => Left ($) - Tubular Bandage Double Layer => - Size of Tubigrip Used Size F => - Size F ($) 2 => - Multi-Layer Compression Left (Qty => 1 applied) RIGHT LEG - Multi-Layered Wrap Application Multi-Layer Comp - => Right ($) => - Tubular Bandage => Double Layer - Size of Tubigrip Used => Size F - Size F ($) => 2 09/18/24 09/25/24 09:56 10:09 Wound Care Center Nurse 3 11. 5th TOE LATERAL -Ulcer Cleansing Rinsed/ Irrigated with Saline -Other Dressing hydrogel hydrogel -Primary Dressing Covered/Secured with Dry Gauze, Dry Gauze, Secured with Secured with Tape Tape 9. LLE MEDIAL -Ulcer Cleansing Rinsed/ Irrigated with Saline -Primary Dressing Applied Aquacel AG 4x4 Aquacel AG 2x2 -Primary Dressing Covered/Secured with Dry Gauze -Aquacel AG 2x2 1 -Aquacel AG 4x4 1 8. L NOLASCO CLUSTER -Other Dressing aquacel ag -Primary Dressing Covered/Secured with Dry Gauze,Dry Gauze & Roll Gauze,Secured with Tape 10. R 2nd TOE -Ulcer Cleansing Rinsed/ Irrigated with Saline -Other Dressing hydrogel hydrogel -Primary Dressing Covered/Secured with Dry Gauze, Dry Gauze, Secured with Secured with Tape Tape LEFT LEG -Multi-Layered Wrap Application Multi-Layer Multi-Layer Comp - Left ($) Comp - Left ($) -Multi-Layer Compression Left (Qty 1 1 applied) RIGHT LEG -Tubular Bandage Double Layer Double Layer -Size of Tubigrip Used Size F Size D -Size D ($) 2 -Size F ($) 2 -Multi-Layer Compression Right (Qty 1 applied) Treatment Response Procedure Tolerated Well Pain Scale: 0-10 Numeric Is Patient Pain Free? 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 Vital signs within normal limits. only 1 wound remains, all others healed Recent x-rays right foot negative for osteomyelitis. Right 2nd toe wound was excisionally debrided down to including level of subcutaneous tissue of all nonviable tissue using 5 mm dermal curette and 15 blade. No topical anesthesia due to neuropathy. Hemostasis obtained with light compression. Pre and postdebridement measurements document and nursing notes. Patient will offload right foot wounds with surgical shoe. follow up in 1 week (2) Non-pressure chronic ulcer of other part of right foot with fat layer exposed: CODE(S): L97.512 - Non-pressure chronic ulcer of other part of right foot with fat layer exposed (3) Non-pressure chronic ulcer of left calf with fat layer exposed: CODE(S): L97.222 - Non-pressure chronic ulcer of left calf with fat layer exposed
--- NOTE | 2024-10-02 13:12 | WC ---
L TRACY ABDUL 10/02/24
--- NOTE | 2024-10-02 13:13 | WC ---
LAT 5TH TOE 10/02/24
--- NOTE | 2024-10-02 13:14 | WC ---
R 2ND TOE 10/02/24
[2024-10-09 08:41] VITALS: BP 132/84; PULSE 113; RESP 18; TEMP 36.1; BMI 32.7
--- NOTE | 2024-10-09 09:33 | PN.PCM_ITS ---
History of Present Illness Date of Service: 10/09/24 Chief Complaint: Multiple, small superficial ulcerations in the lower extr emities bilaterally History of Wound: This 72-year-old white female who presented with right 2nd toe ucleration, denies constitutionals, denies pain, no new changes. Objective Data Objective Data Vital Signs: Vital Signs Temp Pulse Resp BP O2 Del Method 96.9 F L 113 H 18 132/84 H Room Air 10/09/24 08:41 10/09/24 08:41 10/09/24 08:41 10/09/24 08:41 10/09/24 08:41 Oxygen Delivery Method Room Air Weight: 81.193 kg Body Mass Index (BMI) 32.7 Physical Exam Narrative Vascular: Dorsalis pedis posterior tibial pulses palpable 2 out of 4 to bilateral lower extremity compartments. Some a skin atrophic changes noted bilaterally. Digital hair growth noted bilaterally. +1 pitting edema noted to Vance malleoli regions bilaterally. Neurologic: Light touch and protective sensation absent to bilateral feet. Musculoskeletal: No gross deformity noted muscular strength for the bilateral lower extremity compartments. Dermatologic: Full-thickness ulceration noted to the distal aspect of the right second toe. Healed wounds to lateral aspect of the fifth toe to the right foot. No deep probing undermining or acute signs of infection. Full-thickness ulcerations noted to the anterior medial left leg - healed. No deep probing undermining acute signs of infection noted. Const alert and oriented x3 Debridement Note Debridement Note Post-Debridement Measurements and Additional Note: Post-Debridement Measurements/Treatment - Nurse 1 - General Ulcer Assessment Start: 09/18/24 09:15 Freq: Status: Active Protocol: DENG Activity Type Activity Date Activity User E-sign Co-sign Detail Recorded Client Recorded Date Recorded By Document 09/18/24 09:15 RB [id number] 09/18/24 09:18 RB Document 09/25/24 09:10 KW [id number] 09/25/24 09:19 KW Document 10/02/24 08:44 KW [id number] 10/02/24 08:49 KW Document 10/09/24 08:41 ML [id number] 10/09/24 08:46 ML 09/18/24 09/25/24 10/02/24 09:15 09:10 08:44 - Today's Visit Information Type of service Follow-up Visit Follow-up Visit Follow-up Visit (Physician/SUPER[employer] (Physician/SUPERVISOR [employer]ILL[employer]ING (Physician/SUPERVIS[employer] ) ) ) Arrival Mode Ambulatory, Ambulatory, Ambulatory, Walker Walker Walker Transfer Assistance None Patient Identification Verified (Name & Yes Yes Yes ) Patient Requires Transmission-Based No Precautions Height and Weight Body Mass Index (BMI) 32.7 32.7 32.7 BMI Classification Obese Obese Obese Vital Signs Temperature (97.8 F-99.1 F) 96.5 F L 96.3 F L 97.6 F L Temperature Source Temporal Temporal Temporal Pulse Rate (60-100) 136 H 142 H 126 H Pulse Location Monitor Monitor Monitor Respiratory Rate (12-18) 18 18 18 Respiratory rate source Observation Observation Observation Oxygen Delivery Method Room Air Room Air Blood Pressure (90/60-120/80) 126/89 H 145/94 H 157/98 H Blood Pressure Mean (mm Hg) 101 111 117 Source Monitor Monitor Monitor Position Sitting Semi-Fowlers Semi-Fowlers Blood Pressure Location Left Arm Left Arm Left Arm History Since Last Visit- (Skip if this is Patient's initial visit) Have you changed medications since your No No No last visit? Any new allergies or adverse reactions No No No Had a fall/change in ADL's that may No No No increase risk of falls Signs or symptoms of abuse and/or No No No neglect since last visit Have you been in the hospital since your No No No last visit? Has dressing in place as prescribed Yes Yes Yes Has compression in place as prescribed Yes Yes Yes Has offloadiing in place as prescribed N/A Yes Yes Experienced any changes in pain level or No No No management Left Footwear Regular Shoe Regular Shoe Regular Shoe Right Footwear Surgical Shoe Surgical Shoe Surgical Shoe with pressure with pressure with pressure relief insole relief insole relief insole Pain Scale: 0-10 Numeric Is Patient Pain Free? Yes Yes Yes 10/09/24 08:41 WC - Today's Visit Information Type of service Follow-up Visit (Physician/SUPERVIS[employer] ) Arrival Mode Ambulatory, Walker Transfer Assistance Patient Identification Verified (Name & Yes ) Patient Requires Transmission-Based Precautions Height and Weight Body Mass Index (BMI) 32.7 BMI Classification Obese Vital Signs Temperature (97.8 F-99.1 F) 96.9 F L Temperature Source Temporal Pulse Rate (60-100) 113 H Pulse Location Monitor Respiratory Rate (12-18) 18 Respiratory rate source Observation Oxygen Delivery Method Room Air Blood Pressure (90/60-120/80) 132/84 H Blood Pressure Mean (mm Hg) 100 Source Monitor Position Sitting Blood Pressure Location Left Arm History Since Last Visit- (Skip if this is Patient's initial visit) Have you changed medications since your No last visit? Any new allergies or adverse reactions No Had a fall/change in ADL's that may No increase risk of falls Signs or symptoms of abuse and/or No neglect since last visit Have you been in the hospital since your No last visit? Has dressing in place as prescribed Yes Has compression in place as prescribed Yes Has offloadiing in place as prescribed Yes Experienced any changes in pain level or No management Left Footwear Regular Shoe Right Footwear Surgical Shoe with pressure relief insole Pain Scale: 0-10 Numeric Is Patient Pain Free? Yes WC - Nurse 1 - General Ulcer Measurement Start: 09/18/24 09:15 Freq: Status: Active Protocol: Activity Type Activity Date Activity User E-sign Co-sign Detail Recorded Client Recorded Date Recorded By Document 09/18/24 09:15 RB [id number] 09/18/24 09:18 RB Document 09/25/24 09:10 KW [id number] 09/25/24 09:19 KW Document 10/02/24 08:44 KW [id number] 10/02/24 08:49 KW Document 10/09/24 08:41 ML [id number] 10/09/24 08:46 ML 09/18/24 09/25/24 10/02/24 09:15 09:10 08:44 Wound Center Nurse 1 11. 5th TOE LATERAL -Combined with other wound No -Current Size (cm) - Length 0.1 0.1 0.1 -Current Size (cm) - Width 0.1 0.1 0.1 -Current Size (cm) - Depth 0.1 0.1 0 -Total Square Cm 0.01 0.01 0.01 -Date of Last Picture (Recall this 10/02/24 field) -Photo Taken Yes -Epithelialization Large 67-100% -Undermining/Tunneling No -Circular Undermining No -Exudate Amt None Present Small None Present -Exudate Type Serosanguineous -Wound Margin Distinct, Distinct, Outline Outline Attached Attached -Granulation Amt Large (67-100%) None Present (0 %) -Granulation Quality Hagan -Slough/Fibrin Yes -Necrosis Amt Small (1-33%) Large (67-100%) -Necrotic Tissue Type Adherent Slough Adherent Slough -Structure Exposed N/A -Texture (Jessica-wound Skin Appearance) Assessed Assessed,Callus Assessed -Moisture (Jessica-wound Skin Appearance) Assessed Assessed Assessed -Color (Jessica-wound Skin Appearance) Assessed Assessed Assessed -Temperature (Jessica-wound Skin No Abnormality No Abnormality No Abnormality Appearance) (Pt Warm) (Pt Warm) (Pt Warm) -Tenderness on Palpation (Jessica-wound No No No Skin Appearance) -Ulcer Cleansing Wound Cleanser Soap and Water -Foul Odor after Cleansing No No No -Anesthetic Used 5% Lidocaine 5% Lidocaine Gel Gel 9. LLE MEDIAL -Combined with other wound No -Current Size (cm) - Length 0.5 0.5 -Current Size (cm) - Width 0.7 0.4 -Current Size (cm) - Depth 0.1 0.1 -Total Square Cm 0.35 0.20 -Photo Taken Yes -Tunneling No -Undermining/Tunneling No -Circular Undermining No -Exudate Amt Medium Small -Exudate Type Serosanguineous Serosanguineous -Wound Margin Distinct, Distinct, Outline Outline Attached Attached -Granulation Amt Medium (34-66%) Medium (34-66%) -Granulation Quality Hagan Red -Slough/Fibrin Yes -Necrosis Amt Small (1-33%) Medium (34-66%) -Necrotic Tissue Type Adherent Slough Adherent Slough -Structure Exposed N/A -Texture (Jessica-wound Skin Appearance) Assessed Assessed -Moisture (Jessica-wound Skin Appearance) Assessed Assessed -Color (Jessica-wound Skin Appearance) Assessed Assessed -Temperature (Jessica-wound Skin No Abnormality No Abnormality Appearance) (Pt Warm) (Pt Warm) -Tenderness on Palpation (Jessica-wound No No Skin Appearance) -Ulcer Cleansing Wound Cleanser Soap and Water -Foul Odor after Cleansing No No -Anesthetic Used 5% Lidocaine 5% Lidocaine Gel Gel 8. L NOLASCO CLUSTER -Combined with other wound No -Current Size (cm) - Length 0.1 0.1 -Current Size (cm) - Width 0.1 0.1 -Current Size (cm) - Depth 0.1 0.1 -Total Square Cm 0.01 0.01 -Photo Taken Yes -Tunneling No -Undermining/Tunneling No -Circular Undermining No -Exudate Amt Medium None Present -Exudate Type Serosanguineous -Wound Margin Distinct, Outline Attached -Granulation Amt Medium (34-66%) Large (67-100%) -Granulation Quality Hagan Red -Slough/Fibrin Yes -Necrosis Amt Small (1-33%) -Necrotic Tissue Type Adherent Slough -Structure Exposed N/A -Texture (Jessica-wound Skin Appearance) Assessed Assessed -Moisture (Jessica-wound Skin Appearance) Assessed Assessed -Color (Jessica-wound Skin Appearance) Assessed Assessed -Temperature (Jessica-wound Skin No Abnormality No Abnormality Appearance) (Pt Warm) (Pt Warm) -Tenderness on Palpation (Jessica-wound No No Skin Appearance) -Ulcer Cleansing Wound Cleanser Soap and Water -Foul Odor after Cleansing No No -Anesthetic Used 5% Lidocaine Gel 10. R 2nd TOE -Combined with other wound No -Current Size (cm) - Length 0.3 0.3 0.2 -Current Size (cm) - Width 0.7 0.5 0.5 -Current Size (cm) - Depth 0.1 0.1 0.2 -Total Square Cm 0.21 0.15 0.10 -Date of Last Picture (Recall this 10/02/24 field) -Photo Taken Yes -Tunneling No -Undermining/Tunneling No -Circular Undermining No -Exudate Amt Medium Small Small -Exudate Type Serosanguineous Serosanguineous Serosanguineous -Wound Margin Distinct, Distinct, Distinct, Outline Outline Outline Attached Attached Attached -Granulation Amt Medium (34-66%) Large (67-100%) Large (67-100%) -Granulation Quality Hagan Red Red -Slough/Fibrin Yes -Necrosis Amt Small (1-33%) -Necrotic Tissue Type Adherent Slough -Structure Exposed N/A -Texture (Jessica-wound Skin Appearance) Assessed Assessed,Callus Assessed -Moisture (Jessica-wound Skin Appearance) Assessed Assessed Assessed -Color (Jessica-wound Skin Appearance) Assessed Assessed Assessed -Temperature (Jessica-wound Skin No Abnormality No Abnormality No Abnormality Appearance) (Pt Warm) (Pt Warm) (Pt Warm) -Tenderness on Palpation (Jessica-wound No No No Skin Appearance) -Ulcer Cleansing Wound Cleanser Soap and Water Rinsed/ Irrigated with Saline -Foul Odor after Cleansing No No -Anesthetic Used 5% Lidocaine 5% Lidocaine 5% Lidocaine Gel Gel Gel Lower Limb Edema Present Yes Right Calf (cm) 34.5 33.5 33.8 Right Ankle (cm) 20.5 19 20 Left Calf (cm) 34.5 33 34 Left Ankle (cm) 20.5 20 19.5 10/09/24 08:41 Wound Center Nurse 1 11. 5th TOE LATERAL -Combined with other wound -Current Size (cm) - Length -Current Size (cm) - Width -Current Size (cm) - Depth -Total Square Cm -Date of Last Picture (Recall this field) -Photo Taken -Epithelialization -Undermining/Tunneling -Circular Undermining -Exudate Amt -Exudate Type -Wound Margin -Granulation Amt -Granulation Quality -Slough/Fibrin -Necrosis Amt -Necrotic Tissue Type -Structure Exposed -Texture (Jessica-wound Skin Appearance) -Moisture (Jessica-wound Skin Appearance) -Color (Jessica-wound Skin Appearance) -Temperature (Jessica-wound Skin Appearance) -Tenderness on Palpation (Jessica-wound Skin Appearance) -Ulcer Cleansing -Foul Odor after Cleansing -Anesthetic Used 9. LLE MEDIAL -Combined with other wound -Current Size (cm) - Length -Current Size (cm) - Width -Current Size (cm) - Depth -Total Square Cm -Photo Taken -Tunneling -Undermining/Tunneling -Circular Undermining -Exudate Amt -Exudate Type -Wound Margin -Granulation Amt -Granulation Quality -Slough/Fibrin -Necrosis Amt -Necrotic Tissue Type -Structure Exposed -Texture (Jessica-wound Skin Appearance) -Moisture (Jessica-wound Skin Appearance) -Color (Jessica-wound Skin Appearance) -Temperature (Jessica-wound Skin Appearance) -Tenderness on Palpation (Jessica-wound Skin Appearance) -Ulcer Cleansing -Foul Odor after Cleansing -Anesthetic Used 8. L NOLASCO CLUSTER -Combined with other wound -Current Size (cm) - Length -Current Size (cm) - Width -Current Size (cm) - Depth -Total Square Cm -Photo Taken -Tunneling -Undermining/Tunneling -Circular Undermining -Exudate Amt -Exudate Type -Wound Margin -Granulation Amt -Granulation Quality -Slough/Fibrin -Necrosis Amt -Necrotic Tissue Type -Structure Exposed -Texture (Jessica-wound Skin Appearance) -Moisture (Jessica-wound Skin Appearance) -Color (Jessica-wound Skin Appearance) -Temperature (Jessica-wound Skin Appearance) -Tenderness on Palpation (Jessica-wound Skin Appearance) -Ulcer Cleansing -Foul Odor after Cleansing -Anesthetic Used 10. R 2nd TOE -Combined with other wound -Current Size (cm) - Length 0.3 -Current Size (cm) - Width 0.3 -Current Size (cm) - Depth 0.1 -Total Square Cm 0.09 -Date of Last Picture (Recall this field) -Photo Taken -Tunneling -Undermining/Tunneling -Circular Undermining -Exudate Amt Small -Exudate Type Serosanguineous -Wound Margin Distinct, Outline Attached -Granulation Amt Small (1-33%) -Granulation Quality Hagan -Slough/Fibrin -Necrosis Amt Small (1-33%) -Necrotic Tissue Type Adherent Slough -Structure Exposed -Texture (Jessica-wound Skin Appearance) Assessed -Moisture (Jessica-wound Skin Appearance) Assessed -Color (Jessica-wound Skin Appearance) Assessed, Erythema -Temperature (Jessica-wound Skin No Abnormality Appearance) (Pt Warm) -Tenderness on Palpation (Jessica-wound No Skin Appearance) -Ulcer Cleansing Soap and Water -Foul Odor after Cleansing No -Anesthetic Used 5% Lidocaine Gel Lower Limb Edema Present Right Calf (cm) Right Ankle (cm) Left Calf (cm) Left Ankle (cm) WC - Nurse 2 - General Ulcer CM Notes Start: 09/18/24 09:15 Freq: Status: Active Protocol: Activity Type Activity Date Activity User E-sign Co-sign Detail Recorded Client Recorded Date Recorded By Document 09/18/24 09:30 [id number] 09/18/24 09:35 Document 09/25/24 09:40 [id number] 09/25/24 09:45 Document 10/02/24 09:08 [id number] 10/02/24 09:09 Document 10/09/24 08:51 [id number] 10/09/24 08:53 JF 09/18/24 09/25/24 10/02/24 09:30 09:40 09:08 Wound Center Nurse 2 11. 5th TOE LATERAL -Time 09:32 09:42 -Correct Patient Yes Yes Yes -Correct Side, Site, Position Yes Yes No -Correct Procedure Yes Yes No -Procedure Performed Yes Yes No -Type of Procedure Debridement Debridement -Clinical Debridement Subcutaneous Subcutaneous -Tissue Removed Subcutaneous Subcutaneous -Post Debridement (cm) - Length 0.5 0.5 0 -Post Debridement (cm) - Width 0.5 0.6 0 -Post Debridement (cm) - Depth 0.2 0.1 0 -Total Square (Post) (cm) 0.25 0.30 0 -Area of Debridement (cm) - Length 0.5 0.5 0 -Area of Debridement (cm) - Width 0.5 0.6 0 -Total Square (Area) (cm) 0.25 0.30 0 -Tunneling No No -Undermining/Tunneling No No -Circular Undermining No No -Wound/Ulcer Outcome Not Healed Not Healed Healed- Epithelialized -Ulcer Cleansing Rinsed/ Rinsed/ Irrigated with Irrigated with Saline Saline -Foul Odor after Cleansing No No -Bioengineered Tissue No No -Bleeding Controlled with Pressure Pressure -Treatment Response Procedure Procedure Tolerated Well Tolerated Well -Offloading Yes Yes -Type of Offloading Surgical Shoe Surgical Shoe -Debridement - Subq, 1st 20sq cm No No 9. LLE MEDIAL -Time 09:34 09:44 -Correct Patient Yes Yes Yes -Correct Side, Site, Position Yes Yes No -Correct Procedure Yes Yes No -Procedure Performed Yes Yes No -Type of Procedure Debridement Debridement -Clinical Debridement Subcutaneous Subcutaneous -Tissue Removed Subcutaneous Subcutaneous -Post Debridement (cm) - Length 0.5 0.4 0 -Post Debridement (cm) - Width 1.0 0.5 0 -Post Debridement (cm) - Depth 0.1 0.1 0 -Total Square (Post) (cm) 0.50 0.20 0 -Area of Debridement (cm) - Length 0.5 0.4 0 -Area of Debridement (cm) - Width 1.0 0.5 0 -Total Square (Area) (cm) 0.50 0.20 0 -Tunneling No No -Undermining/Tunneling No No -Circular Undermining No No -Wound/Ulcer Outcome Not Healed Not Healed Healed- Epithelialized -Ulcer Cleansing Rinsed/ Rinsed/ Irrigated with Irrigated with Saline Saline -Foul Odor after Cleansing No No -Bioengineered Tissue No No -Bleeding Controlled with Pressure Pressure -Treatment Response Procedure Procedure Tolerated Well Tolerated Well -Offloading No No -Debridement - Subq, 1st 20sq cm Yes No 8. L NOLASCO CLUSTER -Time 09:34 -Correct Patient Yes Yes -Correct Side, Site, Position Yes No -Correct Procedure Yes No -Procedure Performed Yes No -Type of Procedure Debridement -Clinical Debridement Subcutaneous -Tissue Removed Subcutaneous -Post Debridement (cm) - Length 1.7 0 -Post Debridement (cm) - Width 1 0 -Post Debridement (cm) - Depth 0.1 0 -Total Square (Post) (cm) 1.7 0 -Area of Debridement (cm) - Length 1.7 0 -Area of Debridement (cm) - Width 1.0 0 -Total Square (Area) (cm) 1.70 0 -Tunneling No -Undermining/Tunneling No -Circular Undermining No -Wound/Ulcer Outcome Not Healed Healed- Epithelialized -Ulcer Cleansing Rinsed/ Irrigated with Saline -Foul Odor after Cleansing No -Bioengineered Tissue No -Bleeding Controlled with Pressure -Treatment Response Procedure Tolerated Well -Offloading No -Debridement - Subq, 1st 20sq cm No 10. R 2nd TOE -Time 09:32 09:41 09:08 -Correct Patient Yes Yes Yes -Correct Side, Site, Position Yes Yes Yes -Correct Procedure Yes Yes Yes -Procedure Performed Yes Yes Yes -Type of Procedure Debridement Debridement Debridement -Clinical Debridement Subcutaneous Subcutaneous Subcutaneous -Tissue Removed Subcutaneous Subcutaneous -Post Debridement (cm) - Length 0.7 1.0 0.7 -Post Debridement (cm) - Width 0.4 0.5 0.3 -Post Debridement (cm) - Depth 0.1 0.1 0.1 -Total Square (Post) (cm) 0.28 0.50 0.21 -Area of Debridement (cm) - Length 0.7 1.0 0.7 -Area of Debridement (cm) - Width 0.4 0.5 0.3 -Total Square (Area) (cm) 0.28 0.50 0.21 -Tunneling No No No -Undermining/Tunneling No No No -Circular Undermining No No No -Wound/Ulcer Outcome Not Healed Not Healed Not Healed -Ulcer Cleansing Rinsed/ Rinsed/ Rinsed/ Irrigated with Irrigated with Irrigated with Saline Saline Saline -Foul Odor after Cleansing No No No -Bioengineered Tissue No No No -Bleeding Controlled with Pressure Pressure Pressure -Treatment Response Procedure Procedure Procedure Tolerated Well Tolerated Well Tolerated Well -Offloading No Yes -Type of Offloading Surgical Shoe -Debridement - Subq, 20sq cm No Yes Yes Pain Scale: 0-10 Numeric Is Patient Pain Free? Yes Yes Yes 10/09/24 08:51 Wound Center Nurse 2 11. 5th TOE LATERAL -Time -Correct Patient -Correct Side, Site, Position -Correct Procedure -Procedure Performed -Type of Procedure -Clinical Debridement -Tissue Removed -Post Debridement (cm) - Length -Post Debridement (cm) - Width -Post Debridement (cm) - Depth -Total Square (Post) (cm) -Area of Debridement (cm) - Length -Area of Debridement (cm) - Width -Total Square (Area) (cm) -Tunneling -Undermining/Tunneling -Circular Undermining -Wound/Ulcer Outcome -Ulcer Cleansing -Foul Odor after Cleansing -Bioengineered Tissue -Bleeding Controlled with -Treatment Response -Offloading -Type of Offloading -Debridement - Subq, 20sq cm 9. LLE MEDIAL -Time -Correct Patient -Correct Side, Site, Position -Correct Procedure -Procedure Performed -Type of Procedure -Clinical Debridement -Tissue Removed -Post Debridement (cm) - Length -Post Debridement (cm) - Width -Post Debridement (cm) - Depth -Total Square (Post) (cm) -Area of Debridement (cm) - Length -Area of Debridement (cm) - Width -Total Square (Area) (cm) -Tunneling -Undermining/Tunneling -Circular Undermining -Wound/Ulcer Outcome -Ulcer Cleansing -Foul Odor after Cleansing -Bioengineered Tissue -Bleeding Controlled with -Treatment Response -Offloading -Debridement - Subq, 20sq cm 8. L NOLASCO CLUSTER -Time -Correct Patient -Correct Side, Site, Position -Correct Procedure -Procedure Performed -Type of Procedure -Clinical Debridement -Tissue Removed -Post Debridement (cm) - Length -Post Debridement (cm) - Width -Post Debridement (cm) - Depth -Total Square (Post) (cm) -Area of Debridement (cm) - Length -Area of Debridement (cm) - Width -Total Square (Area) (cm) -Tunneling -Undermining/Tunneling -Circular Undermining -Wound/Ulcer Outcome -Ulcer Cleansing -Foul Odor after Cleansing -Bioengineered Tissue -Bleeding Controlled with -Treatment Response -Offloading -Debridement - Subq, 1st 20sq cm 10. R 2nd TOE -Time 08:51 -Correct Patient Yes -Correct Side, Site, Position Yes -Correct Procedure Yes -Procedure Performed Yes -Type of Procedure Debridement -Clinical Debridement Subcutaneous -Tissue Removed Subcutaneous -Post Debridement (cm) - Length 0.5 -Post Debridement (cm) - Width 0.5 -Post Debridement (cm) - Depth 0.1 -Total Square (Post) (cm) 0.25 -Area of Debridement (cm) - Length 0.5 -Area of Debridement (cm) - Width 0.5 -Total Square (Area) (cm) 0.25 -Tunneling No -Undermining/Tunneling No -Circular Undermining No -Wound/Ulcer Outcome Not Healed -Ulcer Cleansing Rinsed/ Irrigated with Saline -Foul Odor after Cleansing No -Bioengineered Tissue No -Bleeding Controlled with Pressure -Treatment Response Procedure Tolerated Well -Offloading Yes -Type of Offloading Surgical Shoe -Debridement - Subq, 1st 20sq cm Yes Pain Scale: 0-10 Numeric Is Patient Pain Free? Yes WC - Nurse 3 - General Ulcer D/C NN Start: 09/18/24 09:15 Freq: Status: Active Protocol: Activity Type Activity Date Activity User E-sign Co-sign Detail Recorded Client Recorded Date Recorded By Document 09/18/24 09:56 KW [id number] 09/18/24 09:57 KW Edit Result 09/18/24 09:56 KW (1) [id number] 09/20/24 12:12 KW Document 09/25/24 10:09 RB [id number] 09/25/24 10:10 RB Document 10/02/24 09:38 RB [id number] 10/02/24 09:39 RB Document 10/09/24 09:03 ML [id number] 10/09/24 09:04 ML (1) LEFT LEG - Multi-Layered Wrap Application => Multi-Layer Comp - => Left ($) - Tubular Bandage Double Layer => - Size of Tubigrip Used Size F => - Size F ($) 2 => - Multi-Layer Compression Left (Qty => 1 applied) RIGHT LEG - Multi-Layered Wrap Application Multi-Layer Comp - => Right ($) => - Tubular Bandage => Double Layer - Size of Tubigrip Used => Size F - Size F ($) => 2 09/18/24 09/25/24 10/02/24 09:56 10:09 09:38 Wound Care Center Nurse 3 11. 5th TOE LATERAL -Ulcer Cleansing Rinsed/ Irrigated with Saline -Other Dressing hydrogel hydrogel -Primary Dressing Covered/Secured with Dry Gauze, Dry Gauze, Secured with Secured with Tape Tape 9. LLE MEDIAL -Ulcer Cleansing Rinsed/ Irrigated with Saline -Primary Dressing Applied Aquacel AG 4x4 Aquacel AG 2x2 -Primary Dressing Covered/Secured with Dry Gauze -Aquacel AG 2x2 1 -Aquacel AG 4x4 1 8. L NOLASCO CLUSTER -Other Dressing aquacel ag -Primary Dressing Covered/Secured with Dry Gauze,Dry Gauze & Roll Gauze,Secured with Tape 10. R 2nd TOE -Ulcer Cleansing Rinsed/ Irrigated with Saline -Primary Dressing Applied -Other Dressing hydrogel hydrogel hydrogel -Primary Dressing Covered/Secured with Dry Gauze, Dry Gauze, Dry Gauze Secured with Secured with Tape Tape -Hydrogel bilat LE -Lotion applied to leg before Yes compression wrap -Multi-Layered Wrap Application Multi-Layer Comp - Bilat ($ ) -Multi-Layer Compression Bilat (Qty 1 applied) LEFT LEG -Multi-Layered Wrap Application Multi-Layer Multi-Layer Comp - Left ($) Comp - Left ($) -Multi-Layer Compression Left (Qty 1 1 applied) RIGHT LEG -Tubular Bandage Double Layer Double Layer -Size of Tubigrip Used Size F Size D -Size C ($) -Size D ($) 2 -Size F ($) 2 -Multi-Layer Compression Right (Qty 1 applied) Treatment Response Procedure Tolerated Well Pain Scale: 0-10 Numeric Is Patient Pain Free? Yes Yes Yes WC - Visit Discharge Discharge Condition Stable Stable Stable Ambulatory Status Ambulatory, Ambulatory, Ambulatory, Walker Walker Walker Transportation Private Auto Private Auto Private Auto Medication Reconcilliation completed & No No No provided to patient/care provider Clinical Summary of Care Provided Yes Yes Yes Notes: 2 boxes of unna boots used bilat 10/09/24 09:03 Wound Care Center Nurse 3 11. 5th TOE LATERAL -Ulcer Cleansing -Other Dressing -Primary Dressing Covered/Secured with 9. LLE MEDIAL -Ulcer Cleansing -Primary Dressing Applied -Primary Dressing Covered/Secured with -Aquacel AG 2x2 -Aquacel AG 4x4 8. L NOLASCO CLUSTER -Other Dressing -Primary Dressing Covered/Secured with 10. R 2nd TOE -Ulcer Cleansing Rinsed/ Irrigated with Saline -Primary Dressing Applied C Hydrogel -Other Dressing -Primary Dressing Covered/Secured with Dry Gauze, Secured with Tape -Hydrogel 0 bilat LE -Lotion applied to leg before compression wrap -Multi-Layered Wrap Application -Multi-Layer Compression Bilat (Qty applied) LEFT LEG -Multi-Layered Wrap Application -Multi-Layer Compression Left (Qty applied) RIGHT LEG -Tubular Bandage Single Layer -Size of Tubigrip Used Size C -Size C ($) 1 -Size D ($) -Size F ($) -Multi-Layer Compression Right (Qty applied) Treatment Response Pain Scale: 0-10 Numeric Is Patient Pain Free? 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 Vital signs within normal limits. only 1 wound remains, all others healed Recent x-rays right foot negative for osteomyelitis. Right 2nd toe wound was excisionally debrided down to including level of subcutaneous tissue of all nonviable tissue using 5 mm dermal curette and 15 blade. No topical anesthesia due to neuropathy. Hemostasis obtained with light compression. Pre and postdebridement measurements document and nursing notes. Patient will offload right foot wounds with surgical shoe. consider flexor tenotomy right 2nd toe to correct hammertoe which is contributing to neuropathic ulceration. follow up in 1 week (2) Non-pressure chronic ulcer of other part of right foot with fat layer exposed: CODE(S): L97.512 - Non-pressure chronic ulcer of other part of right foot with fat layer exposed (3) Non-pressure chronic ulcer of left calf with fat layer exposed: CODE(S): L97.222 - Non-pressure chronic ulcer of left calf with fat layer exposed
== END 2024-10-13 23:59 | disposition home or self-care (01) ==
LOC: WC 08:45
PROVIDERS: PCP Internal Medicine; Referring Provider Internal Medicine; Visit Provider Podiatrist
DX: E11.621 Type 2 diabetes mellitus with foot ulcer (principal); L97.512 Non-pressure chronic ulcer of other part of right foot with fat layer exposed; L97.222 Non-pressure chronic ulcer of left calf with fat layer exposed; E11.42 Type 2 diabetes mellitus with diabetic polyneuropathy; R60.0 Localized edema; M79.89 Other specified soft tissue disorders; Z89.021 Acquired absence of right finger(s); Z87.39 Personal history of other diseases of the musculoskeletal system and connective tissue; Z86.14 Personal history of Methicillin resistant Staphylococcus aureus infection
CPT/HCPCS: 11042; 29581

== ENCOUNTER → 2024-11-07 | Outpatient (REF) | payer MEDICARE, SELFPAY ==
--- OUTSIDE RECORDS SUMMARY | 2024-11-07 04:31 | XMS RPT_ITS | CCD ---
Author Organization [facility] Care Team Providers Care Aurist Name Role Phone Dakotah CALLOWAY, Mando Molina Unavailable Julius Wesley Unavailable Dave Ortiz Unavailable Gil CALLOWAY, Heriberto Unavailable Eddie Thorpe Unavailable [phone] Bernie Reagan MD Primary Care Provider Dr. Bernie Reagan Primary Care Provider Dr. Julius Ramirez Emergency Provider Koram, Dr. Kisha Grant Admit Provider Koram, Dr. Kisha Grant Other Provider Friend, Dr. Obrien Attending Provider [phone] Koram, Dr. Kisha Grant Attending Provider [phone] Korpamela, Dr. Kisha Grant Referring Provider Dr. Bernie Reagan Primary Care Provider Dr. Julius Ramirez Emergency Provider Koram, Dr. Kisha Grant Admit Provider Koram, Dr. Kisha Grant Referring Provider Korpamela, Dr. Kisha Grant Other Provider Friend, Dr. Obrien Attending Provider Korpamela, Dr. Kisha Grant Attending Provider Dr. Bernie Reagan Attending Provider [phone] Olederrick, Dr. Ozuna Referring Provider [phone] Olederrick, Dr. Ozuna Primary Care Provider 1(33 0) Oleghe, Dr. Ozuna Primary Care Provider 1(33 0) Oleghe, Dr. Ozuna Attending Provider [phone])2 Oleghe, Dr. Ozuna Referring Provider [phone])2 Oleghe, Dr. Ozuna Primary Care Provider 1(33 0) Oleghe, Dr. Ozuna Attending Provider [phone])2 Olee, Dr. Ozuna Referring Provider [phone])2 Carlos, Dr. Collins Emergency Provider Thomas, Dr. Calixto Admit Provider Thomas, Dr. Calixto Attending Provider Thomas, Dr. Calixto Other Provider New, Dr. Kiran Acosta Other Provider Olebrea, Dr. Ozuna Primary Care Provider [phone] 0) Olee, Dr. Ozuna Attending Provider [phone])2 Oleghe, Dr. Ozuna Referring Provider [phone])2 Carlos, Dr. Collins Emergency Provider Thomas, Dr. Calixto Admit Provider Thomas, Dr. Calixto Attending Provider Thomas, Dr. Calixto Other Provider New, Dr. Kiran Acosta Other Provider Dr. Elvia Damon Attending Provider Korpamela, Dr. Kisha Grant Attending Provider [phone] John, Dr. Kisha Grant Other Provider Dr. Reji Morocho Other Provider [phone] Dr. Jeremias Betancourt Attending Provider Dr. Kiran Wolff Attending Provider Dr. Nadja Jasmine Other Provider Dr. Nadja Jasmine Attending Provider Dr. Jeremias Betancourt Attending Provider Dr. Durga Guzman Referring Provider Dr. Kisha Lopez Attending Provider Amanda LEAD DESIGNER, LEAD DESIGNER-C Génesis E Attending Provider [phone] Mckeon LEAD DESIGNER, LEAD DESIGNER-C Nadja Attending Provider [phone] Dr. Bernie Reagan Primary Care Provider [phone] Tez, Dr. Ozuna Attending Provider [phone] Dr. Bernie Reagan Referring Provider [phone] Dr. Karina Gonzalez Emergency Provider Thomas, Dr. Calixto Admit Provider Thomas, Dr. Calixto Attending Provider Thomas, Dr. Calixto Other Provider Dr. Kiran Wolff Other Provider Dr. Jeremias Betancourt Attending Provider Thomas, Dr. Calixto Referring Provider Dr. Kisha Lopez Attending Provider John, Dr. Kisha Grant Other Provider Dr. Reji Morocho Other Provider Dr. Kiran Wolff Attending Provider Dr. Nadja Jasmine Other Provider Dr. Nadja Jasmine Attending Provider Amanda LEAD DESIGNER, LEAD DESIGNER-C Génesis E Attending Provider Amanda LEAD DESIGNER, LEAD DESIGNER-C Génesis E Other Provider Mckeon LEAD DESIGNER, LEAD DESIGNER-C Nadja Attending Provider Dr. Monty Mota Emergency Provider Dr. Nicholas Delvalle Admit Provider Dr. Nicholas Delvalle Attending Provider Dr. Nicholas Delvalle Other Provider Dr. Wale Jacobsen Attending Provider Dr. Wale Jacobsen Other Provider Dr. Anu James Other Provider Dr. Anu James Attending Provider Dr. Anu James Attending Provider Dr. Nicholas Delvalle Referring Provider Dr. Krishna Frances Emergency Provider Dr. Omayra Cho Admit Provider Dr. Omayar Cho Attending Provider Dr. Omayra Cho Other Provider Dr. Omayra Cho Referring Provider Dr. Yobany Connor Other Provider Dr. Yobany Connor Attending Provider Dr. Bernie Reagan Primary Care Provider Dr. Bernie Reagan Referring Provider [phone] Dr. Bernie Reagan Attending Provider Amanda LEAD DESIGNER, LEAD DESIGNER-C Génesis E Referring Provider Dr. Bernie Reagan Primary Care Provider Amanda LEAD DESIGNER, LEAD DESIGNER-C Génesis E Attending Provider Dr. Kisha Lopez Attending Provider Dr. Kisha Lopez Other Provider Dr. Nadja Jasmine Attending Provider Dr. Nadja Jasmine Other Provider Dr. Jeremias Betancourt Attending Provider Roof LEAD DESIGNER, LEAD DESIGNER-C Mando Hernandez Attending Provider TEZ CALLOWAY, BERNIE Smith Primary Care Physician [phone] Dr. Bernie Reagan Primary Care Provider [phone] Amanda LEAD DESIGNER, LEAD DESIGNER-C Génesis Meza Attending Provider Amanda LEAD DESIGNER, LEAD DESIGNER-C Génesis Meza Other Provider Dr. Bernie Reagan Referring Provider [phone] Mike LEAD DESIGNER, LEAD DESIGNER-C Nadja Attending Provider [phone] Dr. Bernie Reagan Attending Provider [phone] Dr. Bernie Reagan Primary Care Provider [phone] [phone]) Dr. Bernie Reagan Referring Provider [phone] TERA Gr Attending Provider [phone] Dr. Reji Donnelly Attending Provider TEZ CALLOWAY, [facility] Primary Care Unavailab ambrosio REAGAN MD, [facility] Smith Consulting Unavailab le CECILIO DEL REAL, JULIUS Admitting Unavailable PLUNK DO, ROSARIO Attending Unavailable PALUTSIS DO, CARLITOS Blanc Consulting Unavail able CONCHA CALLOWAY, GEOFFREY Consulting Unavailable KORPI JONH DEL REAL Consulting Unavailable TEZ CALL[facility] Unavailab ambrosio POLANCO MD, DR GONZALEZ Attending Unavailab ambrosio REAGAN MD, [facility] Primary Care Unavailab ambrosio FITCH MD, DR GERARD Qureshi Attending Unavailable ALISA LAWSON MD Consulting Unavailab ambrosio SANTIAGO MD, DR WILLS Attending Unavailable TEZ CALLOWAY, [facility] Primary Care Unavailab ambrosio PERLA MD, MARCELINA Consulting Unavailable JUAN MANUEL CALLOWAY, ANILA Fallon Admitting Unavailable CLARY CALLOWAY FACP, WAYNE Molina Consulting Unavail able HARJIT CALLOWAY, RYLAN Consulting Unavailable HIRA CALLOWAY, JOSÉ Consulting Unavailable Tez, Dr. Ozuna Primary Care Provider [phone] Tez, Dr. Ozuna Referring Provider [phone] TERA Gr Attending Provider [phone] Dr. Reji Donnelly Attending Provider Dr. Román Suggs Referring Provider Tez CALLOWAY, Dr. Ozuna Primary Care Provider Tez CALLOWAY, Dr. Ozuna Attending Provider [phone] Tez CALLOWAY, Dr. Ozuna Referring Provider [phone] 0) Tez CALLOWAY, Dr. Ozuna Primary Care Provider Tez CALLOWAY, Dr. Ozuna Attending Provider [phone] Tez CALLOWAY, Dr. Ozuna Referring Provider [phone]) Francisca FERNANDO, Dr. Campos Attending Provider Caitlin rG Attending Provider Alice LEAD DESIGNER-CMando Attending Provider Dr. Wale Barrera DO Emergency Provider [phone] Wale Barrera DO Attending Provider [phone] Oleghe, Efewongbe Primary Care Unavailable Oleghe, Efewongbe Referring Unavailable WaytCaitlin Attending Unavailable Oleghe, Efewongbe Primary Care Unavailable Oleghe, Efewongbe Referring Unavailable Roof LEAD DESIGNERMando Attending Unavailable Oleghe, Efewongbe Primary Care Unavailable Oleghe, Efewongbe Referring Unavailable WaytCaitlin Attending Unavailable Oleghe, Efewongbe Attending Unavailable Oleghe, Efewongbe Primary Care Unavailable Oleghe, Efewongbe Referring Unavailable WaytCaitlin Attending Unavailable Oleghe, Efewongbe Primary Care Unavailable Oleghe, Efewongbe Referring Unavailable Oleghe, Efewongbe Primary Care Unavailable WaytCaitlin Attending Unavailable Oleghe, Efewongbe Referring Unavailable Wayt, Caitlin Attending Unavailable Oleghe, Efewongbe Primary Care Unavailable Oleghe, Efewongbe Attending Unavailable Oleghe, Efewongbe Referring Unavailable Oleghe, Efewongbe Primary Care Unavailable Oleghe, Efewongbe Attending Unavailable Oleghe, Efewongbe Primary Care Unavailable Oleghe, Efewongbe Referring Unavailable Oleghe, Efewongbe Primary Care Unavailable WaytCaitlin Attending Unavailable Wayt, Caitlin Referring Unavailable Oleghe, Efewongbe Primary Care Unavailable WaytCaitlin Attending Unavailable Wayt, Caitlin Referring Unavailable Oleghe, Efewongbe Attending Unavailable Oleghe, Efewongbe Referring Unavailable Oleghe, Efewongbe Primary Care Unavailable Oleghe, Efewongbe Referring Unavailable Oleghe, Efewongbe Attending Unavailable Oleghe, Efewongbe Primary Care Unavailable Oleghe, Efewongbe Primary Care Unavailable Wale Barrera Attending Unavailable Fatemeh Espinosa Attending Unavailable Oleghe, Efewongbe Primary Care Unavailable Oleghe, Efewongbe Referring Unavailable Oleghe, Efewongbe Referring Unavailable Oleghe, Efewongbe Attending Unavailable Oleghe, Efewongbe Primary Care Unavailable Oleghe, Efewongbe Referring Unavailable Oleghe, Efewongbe Primary Care Unavailable Fatemeh Espinosa Attending Unavailable Fatemeh Espinosa Attending Unavailable Oleghe, Efewongbe Primary Care Unavailable Oleghe, Efewongbe Referring Unavailable OLEGHE BERNIE CALLOWAY Primary Care UnavailRAJ East MD Attending Unavailable ELVA PAINTER SKI EDGE-PANTOGRAPH WATCHER, YAS M Admitting Unavaila ANJELICA Dorado MDBE B Primary Care UnavailMISA Madden DO Attending Unavailable Allergies Allergy Classification Reported Allergen(s) Allergy Type Date of Onset Reaction(s) Facility (9 sources) Fosinopril; Translations: [Fosinopril] Drug Allergy 0 [facility] Work Phone: (2 sources) Fosinopril Drug Allergy 7 coughing [facility] Work Phone: (20 sources) pioglitazone; Translations: [pioglitazone] Drug Allergy 9 Other: See Comments [facility] (20 sources) Fosinopril Drug Allergy 1 unknown, Other [facility] (2 sources) oxyCODONE Drug Allergy 1 Other [facility] Work Phone: (1 source) Fosinopril Drug Allergy 5 [facility] (1 source) pioglitazone Drug Allergy 5 [facility] Medications Current Medications Medication Drug Class(es) Dates Sig (Normalized) Sig (Original) acetaminophen 325 mg oral capsule (20 sources) Start: 12-22-2022 acetaminophen 500 mg oral tablet Dose : 1,000 mg = 2 tab(s), Oral, qDay, PRN as needed for pain Start Date: 12/22/22 Status: Ordered Start: 12-02-2021 End: 12-07-2023 Start: 12-02-2021 take 650 mg by mouth three times daily Acetaminophen Active 650 MG PO THREE TIMES A DAY December 02, 2021 12:00am Start: 12-02-2021 Start: 03-16-2021 take 1000 mg by mout h every eight hours Acetaminophen Active 1000 MG PO EVERY 8 HOURS 0 March 16, 2021 7:55pm Start: 03-01-2021 End: 03-02-2021 Start: 02-17-2021 take 1000 mg by mout h every six hours as needed Acetaminophen Active 1000 MG PO EVERY 6 HOURS NEEDED 0 February 17, 2021 8:12pm Start: 01-27-2021 End: 02-17-2021 Start: 10-03-2018 End: 02-01-2019 Start: 10-03-2018 End: 02-01-2019 take 500 mg by mouth every six hours as needed Acetaminophen Discontinued 500 MG PO EVERY 6 HOURS NEEDED October 03, 2018 12:00am February 01, 2019 4:51pm acetaminophen 325 mg / HYDROcodone bitartrate 5 mg oral tablet (2 sources) Opioid Agonist Start: 10-12-2024 End: 10-15-2024 take 1 tablet by mouth every six hours as needed for pain [place] 325- 5 mg oral tablet Dose = 1 tab(s), Oral, q6h, PRN for pain, X 3 day(s), # 10 tab(s), 0 Refill(s), Nasal bone fractures, 90.9 Start Date: 10/12/24 Stop Date: 10/15/24 Status: Ordered Quantity: 10.0 Unit: tab(s) Repeat number: 1 Indications: Fracture of nasal bones, initial encounter for closed fracture; Start: 12-23-2022 End: 12-30-2022 take 1 tablet by mouth every six hours as needed for pain [place] 325- 5 mg oral tablet Dose = 1 tab(s), Oral, q6h, PRN Pain, X 7 day(s), # 28 tab(s), 0 Refill(s), Post-op pain Intertrochanteric fracture of right hip, 89.6 Start Date: 12/23/22 Stop Date: 12/30/22 Status: Ordered amiodarone hydrochloride 200 mg oral tablet (20 sources) Antiarrhythmic Start: 10-15-2024 amiodarone 200 mg oral tablet Dose : 200 mg = 1 tab(s), Oral, qDay, Take with food., 0 Refill(s) Start Date: 10/15/24 Status: Ordered Repeat number: 1 Start: 09-24-2024 End: 10-01-2024 Start: 10-10-2018 End: 03-06-2019 Start: 10-10-2018 End: 03-06-2019 take 200 mg by mouth once daily Amiodarone Discontinued 200 MG PO DAILY 90 November 10, 2018 10:01am March 06, 2019 3:33pm Comment on above: Take 1 tablet by nito th once daily. amLODIPine 10 mg oral tablet (20 sources) Dihydropyridine Calcium Channel Fritz Start: take 1 dose by mouth once daily amLODIPine Dose : 10 mg =, Oral, qDay, 0 Refill(s) Start Date: 10/15/24 Status: Ordered Repeat number: 1 Start: 07-14-2023 amLODIPine 5 m g oral tablet Dose : 5 mg = 1 tab(s), Oral, qDay, # 30 tab(s), 3 Refill(s), Pharmacy: [facility], [facility], cm, 07/10/23 21:37:00 EST, Height, kg, 07/10/23 21:37:00 EST, Dosing Weight Start Date: 07/14/23 Status: Ordered Quantity: 30.0 Unit: tab(s) Repeat number: 4 Start: 10-16-2019 AMLODIPINE BES YLATE TABS 1 tablet daily AMLODIPINE BESYLATE TABS [id number] Mando Claire MD Start: 10-10-2018 End: 09-04-2024 apixaban 5 mg oral tablet (20 sources) Factor Xa Inhibitor Start: 10-15-2022 End: 09-04-2024 Eliquis 5 mg oral tablet Dose : 5 mg = 1 tab(s), Oral, BID, 89.6 Start Date: 12/22/22 Status: Ordered Repeat number: 1 Start: 10-10-2018 End: 06-10-2022 Comment on above: Take 5 mg by mouth t wice daily. atorvastatin 10 mg oral tablet (20 sources) HMG-CoA Reductase Inhibitor Start: 10-15-2024 atorvastatin 10 mg oral tablet Dose : 10 mg = 1 tab(s), Oral, qDay, # 30 tab(s), 0 Refill(s) Start Date: 10/15/24 Status: Ordered Quantity: 30.0 Unit: tab(s) Repeat number: 1 Start: 12-16-2023 End: 09-04-2024 Start: 07-14-2023 atorvastatin 4 0 mg oral tablet Dose : 40 mg = 1 tab(s), Oral, qDay, # 30 tab(s), 3 Refill(s), Pharmacy: [facility], 155, cm, 07/10/23 21:37:00 EST, Height, kg, 07/10/23 21:37:00 EST, Dosing Weight Start Date: 07/14/23 Status: Ordered Quantity: 30.0 Unit: tab(s) Repeat number: 4 Start: 08-18-2022 End: 04-07-2023 Calcium (17 sources) Phosphate Binder, Calcium Start: 02-25-2021 take 600 mg by mouth twice daily Calcium Active 600 MG PO TWICE A DAY February 25, 2021 8:10am Start: 02-25-2021 take 600 mg by mouth twice markus ly Calcium Active 600 MG PO TWICE A DAY February 24, 2021 11:00pm Start: 02-25-2021 take 600 mg by mouth twice markus ly Calcium Active 600 MG PO TWICE A DAY February 25, 2021 12:00am calcium carbonate 500 mg chewable tablet (3 sources) Start: 07-20-2023 calcium carbon ate 500 mg (200 mg elemental calcium) oral tablet, chewable Dose : 500 mg = 1 tab(s), Chewed, q8h, PRN as needed for dyspepsia, 0 Refill(s) Start Date: 07/20/23 Status: Ordered Repeat number: 1 cephalexin 500 mg oral capsule (20 sources) Cephalosporin Antibacterial Start: 10-02-2024 Start: 08-20-2024 End: 08-27-2024 Start: 09-06-2022 End: 09-15-2022 Start: 07-06-2022 take 500 mg by mouth every six hours Cephalexin Active 500 MG PO EVERY 6 HOURS July 06, 2022 12:00am ciprofloxacin 500 mg oral tablet (2 sources) Quinolone Antimicrobial Start: 07-14-2022 Compress.Stocking,Knee ,Reg,Lrg (2 sources) Start: 05-26-2023 Compress.Stock ing,Kne e,Reg,Lrg Active 0 .MEDSUPPLY 2 May 26, 2023 1:00am wear daily for venous insufficiency 20-30 mmHg Start: 05-26-2023 Compress.Stock ing,Knee,Reg,Lrg Active 0 .MEDSUPPLY May 26, 2023 12:00am wear daily for venous insufficiency 20-30 mmHg DilTIAZem (Eqv-Cardizem CD) 240 mg/24 hours oral capsule, extended release (3 sources) Start: 12-22-2022 DilTIAZem (Eqv-Cardizem CD) 240 mg/24 hours oral capsule, extended release Dose : 240 mg = 1 cap(s), Oral, qDay Start Date: 12/22/22 Status: Ordered docusate sodium 100 mg oral capsule (6 sources) Start: 12-28-2022 Colace 100 mg oral capsule Dose : 100 mg = 1 cap(s), Oral, BID, PRN Constipation, 0 Refill(s) Start Date: 12/28/22 Status: Ordered Repeat number: 1 docusate sodium 50 mg / sennosides, senior living 8.6 mg oral tablet (20 sources) Start: 12-28-2022 take 1 tablet by mouth once daily at bedtime as needed for constipation Senexon-S 50 mg-8.6 mg oral tablet Dose = 2 tab(s), Oral, qHS, PRN Constipation, 0 Refill(s) Start Date: 07/20/23 Status: Ordered Repeat number: 1 Start: 03-16-2021 End: 03-03-2022 Start: 03-16-2021 End: 03-03-2022 take 2 tablets by mouth twice daily Sennosides-Docusate Sodium (Stool Softener-Stimulant Laxat) 8.6-50 mg Tablet Discontinued 2 TABLET PO TWICE A DAY 0 March 16, 2021 12:00am March 03, 2022 11:25am Start: 03-16-2021 End: 03-03-2022 dofetilide 0.25 mg oral capsule (4 sources) Antiarrhythmic Start: 07-14-2023 Tikosyn 250 mc g oral capsule Dose : 250 mcg = 1 cap(s), Oral, q12hr, # 60 cap(s), 3 Refill(s), Pharmacy: [facility], 155, cm, 07/10/23 21:37:00 EST, Height, kg, 07/10/23 21:37:00 EST, Dosing Weight Start Date: 07/14/23 Status: Ordered Quantity: 60.0 Unit: cap(s) Repeat number: 4 ferrous gluconate 324 mg oral tablet (1 source) Start: 07-10-2023 ferrous glucon ate 324 mg (38 mg elemental iron) oral tablet Dose : 324 mg = 1 tab(s), Oral, qDay, 0 Refill(s) Start Date: 07/10/23 Status: Ordered ferrous sulfate 325 mg oral tablet (20 sources) Start: 06-04-2020 End: 10-26-2023 IRON (ferrous sulfate 325 mg) 65 mg oral tablet Dose : 325 mg = 1 tab(s), Oral, qDayM, # 30 tab(s), 3 Refill(s), Pharmacy: [facility], 155, cm, 07/10/23 21:37:00 EST, Height, kg, 07/10/23 21:37:00 EST, Dosing Weight Start Date: 07/14/23 Status: Ordered Quantity: 30.0 Unit: tab(s) Repeat number: 4 fluticasone propionate 0.05 mg/actuat metered dose nasal spray (20 sources) Corticosteroid Start: 10-23-2024 take 50 ug nasal route twice daily Flonase 50 mcg/inh nasal spray 50 mcg Dose = 1 spray(s), Nostril, each, BID, 0 Refill(s) Start Date: 10/23/24 Status: Ordered Repeat number: 1 Start: 12-27-2018 End: 01-07-2020 Start: 12-27-2018 End: 01-07-2020 Fluticasone Propionate Disco ntinued 2 SPRAY INTRANASAL DAILY 54.6 May 31, 2019 5:29pm January 07, 2020 2:52pm Start: 10-12-2017 take 1-2 spray(s) na chay route once daily fluticasone (FLONASE) 50 mcg/actuation nasal spray Use 1-2 Sprays in each nostril once daily. For Eustachian Tube Dysfunction 1 Bottle 11 10/12/2017 Active Comment on above: Use 1-2 Sprays in ea ch nostril once daily. For Eustachian Tube Dysfunction furosemide 40 mg oral tablet (20 sources) Loop Diuretic Start: 09-24-2024 Start: 09-15-2022 End: 09-24-2024 furosemide 20 mg oral tablet Dose : 20 mg = 1 tab(s), Oral, qDay Start Date: 12/22/22 Status: Ordered Repeat number: 1 Start: 11-09-2018 End: 07-15-2022 Start: 10-20-2018 take 1 tablet by nito th once daily furosemide (LASIX) 20 mg tablet Take 20 mg by mouth once daily. 0 10/20/2018 Active Comment on above: Take 20 mg by mouth once daily. glimepiride 2 mg oral tablet (20 sources) Sulfonylurea Start: 10-15-2024 glimepiride 2 mg oral tablet Dose : 2 mg = 1 tab(s), Oral, Daily, # 100 tab(s), 0 Refill(s) Start Date: 10/15/24 Status: Ordered Quantity: 100.0 Unit: tab(s) Repeat number: 1 Start: 05-22-2024 Start: 06-22-2022 End: 05-22-2024 Start: 06-22-2022 End: 04-07-2023 take 4 mg by mouth twice daily Glimepiride Discontinue d 4 MG PO TWICE A DAY 180 90 September 07, 2022 9:33am April 07, 2023 3:56pm Start: 12-05-2019 End: 06-22-2022 Start: 12-05-2019 End: 12-12-2020 take 10 mg by mouth twice daily Glimepiride Discontinued 10 MG PO TWICE A DAY December 04, 2020 3:00pm December 10, 2020 3:22pm Start: 12-05-2019 End: 06-22-2022 take 2 mg by mouth twice daily Glimepiride Discontinue d 2 MG PO TWICE A DAY 180 March 29, 2022 3:09pm June 22, 2022 4:05pm Start: 07-11-2018 End: 12-05-2019 take 2 mg by mouth twice daily Glimepiride Discontinue d 2 MG PO TWICE A DAY 180 May 31, 2019 5:29pm October 09, 2019 3:10pm Start: 07-11-2018 End: 12-05-2019 take 2 mg by mouth once daily Glimepiride Discontinued 2 MG PO DAILY October 09, 2019 3:10pm December 05, 2019 1:25pm Start: 07-11-2018 End: 12-05-2019 Start: 05-26-2018 End: 12-05-2019 take 4 mg by mouth twice daily Glimepiride Discontinue d 4 MG PO TWICE A DAY July 11, 2018 1:00am February 12, 2019 3:42pm Comment on above: TAKE 1 TABLET TWICE A DAY WITH MEALS DIRECTED glucagon (rdna) 1 mg injection (3 sources) Antihypoglycemic Agent Start: 024 inject 1 dose by subcutaneous injection once as needed glucagon 1 mg injection Dose : 1 mg =, Subcutaneous, Once, PRN Low blood sugar, 0 Refill(s) Start Date: 07/20/23 Status: Ordered Repeat number: 1 guaiFENesin 200 mg oral tablet (20 sources) Start: 024 take 1 dose by mouth every four hours as needed guaiFENesin 100 mg/5 mL oral liquid Dose : 200 mg = 10 mL, Oral, q4h, PRN Cough, 0 Refill(s) Start Date: 07/20/23 Status: Ordered Repeat number: 1 Start: 07-20-2023 take 1 dose by mouth every four hours as needed guaiFENesin 100 mg/5 mL oral liquid Dose : 200 mg = 10 mL, Oral, q4h, PRN Cough, 0 Refill(s) Start Date: 07/20/23 Status: Ordered Start: 10-16-2018 End: 11-02-2018 handicap placard (3 sources) Start: 12-10-[address] Active 0 .ROUTE .COMPLEX 1 December 09, 2021 11:00pm Duration 5 years for reduced mobility Start: 12-10-[address] Active 0 .ROUTE .COMPLEX 1 December 10, 2021 12:00am Duration 5 years for reduced mobility Incontinence Pad, Liner, Dis p (3 sources) Start: 03-03-2022 Incontinence P ad, Liner, Disp Active 0 .[address] 144 March 02, 2022 11:00pm As directed Start: 03-03-2022 Incontinence P ad, Liner, Disp Active 0 .[address] March 03, 2022 12:00am As directed insulin lispro 100 unt/ml injectable solution (2 sources) Insulin Analog Start: 12-28-2022 HumaLOG 100 units/mL subcutaneous solution Give 0-5 units/dose, Subcutaneous, TIDAC, 0 Refill(s) Start Date: 12/28/22 Status: Ordered LORazepam 0.5 mg oral tablet (2 sources) Benzodiazepine Start: 02-17-2021 take 0.5 mg by mouth every six hours as needed Lorazepam Active 0.5 MG PO EVERY 6 HOURS NEEDED 28 7 February 17, 2021 8:12pm menthol 0.04 mg/mg topical gel (4 sources) Start: 07-20-2023 Biofreeze 4% topical gel See Instructions, PRN as needed for pain, Topical BID to knees, 0 Refill(s), 89 Start Date: 07/20/23 Status: Ordered Repeat number: 1 Menthol / Zinc Oxide (2 sources) Start: 03-16-2021 Menthol-Zinc Oxide (Calmoseptine) 0.44-20.6 % Ointment Active 1 APPLIC TOPICAL TWICE A DAY 0 March 16, 2021 7:55pm metFORMIN hydrochloride 1000 mg oral tablet (20 sources) Biguanide Start: 02-04-2012 End: 09-04-2024 metFORMIN 1000 mg oral tablet (IR) Dose : 1,000 mg = 1 tab(s), Oral, BID Start Date: 12/22/22 Status: Ordered Repeat number: 1 Comment on above: Take 1 tablet by nito th twice daily with meals. Milk of Magnesia 8% oral suspension (3 sources) Start: 07-20-2023 Milk of Magnesia 8% oral suspension 2.4 gram(s) Dose = 30 mL, Oral, qDay, PRN as needed for constipation, 0 Refill(s) Start Date: 07/20/23 Status: Ordered Repeat number: 1 Start: 07-20-2023 Milk of Magnes ia 8% oral suspension 2.4 gram(s) Dose = 30 mL, Oral, qDay, PRN as needed for constipation, 0 Refill(s) Start Date: 07/20/23 Status: Ordered Multivitamin preparation (20 sources) Start: 12-22-2022 take 1 tablet by mouth once daily Multivitamin Dose = 1 tab(s), Oral, qDay Start Date: 12/22/22 Status: Ordered Repeat number: 1 Start: 12-22-2022 take 1 tablet by nito once daily Multivitamin Dose = 1 tab(s), Oral, qDay Start Date: 12/22/22 Status: Ordered Start: 09-07-2022 take 1 tablet by nito once daily Multivitamin Active 1 TABLET PO DAILY September 07, 2022 9:34am Start: 09-07-2022 take 1 tablet by nito once daily Multivitamin Active 1 TABLET PO DAILY September 07, 2022 8:34am Start: 07-09-2022 End: 09-07-2022 take 1 tablet by mouth once daily Multivitamin Discontinued 1 TABLET PO DAILY July 09, 2022 1:00am September 07, 2022 9:34am Start: 07-09-2022 End: 09-07-2022 take 1 tablet by mouth once daily Multivitamin Discontinued 1 TABLET PO DAILY July 09, 2022 12:00am September 07, 2022 8:34am Start: 07-09-2022 take 1 tablet by nito once daily Multivitamin Active 1 TABLET PO DAILY July 09, 2022 12:00am Start: 02-25-2021 take 1 capsule by mo [facility] once daily Multivitamin Active 1 CAP PO DAILY February 25, 2021 8:10am Start: 02-25-2021 take 1 capsule by [facility] once daily Multivitamin Active 1 CAP PO DAILY February 24, 2021 11:00pm Start: 02-25-2021 take 1 capsule by [facility] once daily Multivitamin Active 1 CAP PO DAILY February 25, 2021 12:00am Normal saline (3 sources) Start: 09-21-2023 Tumtum Saline 0.6 5% nasal gel See Instructions, one application in both nostrils q 8 hours prn for dry nares, 0 Refill(s) Start Date: 09/21/23 Status: Ordered Repeat number: 1 Start: 09-21-2023 Tumtum Saline 0.6 5% nasal gel See Instructions, one application in both nostrils q 8 hours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 (primary) hypertension] Onset: 7 04-24-2015 Chronic Fluid and electrolyte disorders (20 sources) Acidosis; Translations: [Acidosis] Onset: 4 04-28-2021 Episodic Fracture of lower limb (20 sources) Fracture of patella; Translations: [Unspecified fracture of unspecified patella, initial encounter for closed fracture] 01-29-2021 Episodic Fracture of upper limb (20 sources) Elbow fracture - closed; Translations: [Unspecified fracture of lower end of right humerus, initial encounter for closed fracture] Episodic Gastrointestinal hemorrhage (20 sources) Acute gastrointestinal hemorrhage; Translations: [Gastrointestinal hemorrhage, unspecified] Episodic Genitourinary symptoms and ill-defined conditions (20 sources) Urge incontinence of urine; Translations: [Urge incontinence] Onset: 9 03-04-2009 Chronic Genitourinary symptoms and ill-defined conditions (3 sources) Bacteriuria; Translations: [Bacteriuria] Onset: 5 Episodic Heart valve disorders (20 sources) Non-rheumatic mitral valve stenosis; Translations: [Nonrheumatic mitral (valve) stenosis] 07-09-2020 Chronic Hypertension with complications and secondary hypertension (1 source) Hypertensive chronic kidney disease with stage 1 through stage 4 chronic kidney disease, or unspecified chronic kidney disease; Translations: [Hypertensive chronic kidney disease with stage 1 through stage 4 chronic kidney disease, or unspecified chronic kidney disease] Onset: 4 Chronic Immunizations and screening for infectious disease (20 sources) Needs influenza immunization; Translations: [Encounter for immunization] Episodic Infective arthritis and osteomyelitis (except that caused by tuberculosis or sexually transmitted disease) (20 sources) Osteomyelitis of hand; Translations: [Osteomyelitis of right hand] Onset: 0 10-16-2019 Chronic Influenza (2 sources) Influenza; Translations: [Influenza due to other identified influenza virus with other respiratory manifestations] Onset: 4 Episodic Malaise and fatigue (20 sources) Asthenia; Translations: [Other malaise] Onset: 4 Episodic Mood disorders (20 sources) Depressive disorder; Translations: [Other specified depressive episodes] Onset: 8 05-30-2007 Chronic Nonmalignant breast conditions (20 sources) Breast lump; Translations: [Unspecified lump in unspecified breast] 01-04-2019 Episodic Osteoarthritis (20 sources) Osteoarthritis of left knee joint; Translations: [Unilateral primary osteoarthritis, left knee] 05-11-2021 Chronic Osteoporosis (20 sources) Osteoporosis; Translations: [Age-related osteoporosis without current pathological fracture] Onset: 5 Chronic Other aftercare (20 sources) Long-term current use of anticoagulant; Translations: [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] 07-13-2022 Episodic Other aftercare (20 sources) 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; Translations: [Long-term (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] 07-09-2022 Episodic Other aftercare (1 source) ocean transportation intermediary (current) use of insulin; Translations: [ocean transportation intermediary (current) use of insulin] Onset: 5 Episodic Other bone disease and musculoskeletal deformities (7 sources) Acquired absence of right finger(s); Translations: [Other finger(s) amputation status] 07-09-2022 Episodic Other bone disease and musculoskeletal deformities (9 sources) History of amputation of finger of right hand; Translations: [Acquired absence of right finger(s)] 10-26-2022 Episodic Other circulatory disease (9 sources) History of cerebrovascular accident; Translations: [Personal history of transient ischemic attack (TIA), and cerebral infarction without residual deficits] 10-26-2022 Episodic Other circulatory disease (6 sources) Personal history of transient ischemic attack (TIA), and cerebral infarction without residual deficits; Translations: [Personal history of transient ischemic attack (TIA), and cerebral infarction without residual deficits] 11-02-2022 Episodic Other circulatory disease (2 sources) History of transient ischemic attack; Translations: [Personal history of transient ischemic attack (TIA), and cerebral infarction without residual deficits] Onset: 3 Episodic Other connective tissue disease (20 sources) History of implantation of joint prosthesis into elbow joint; Translations: [Presence of left artificial elbow joint] 12-02-2021 Chronic Other connective tissue disease (6 sources) Presence of left artificial elbow joint; Translations: [Elbow joint replacement] 11-02-2022 Chronic Other diseases of bladder and urethra (20 sources) Overactive bladder; Translations: [Overactive bladder] 01-27-2021 Chronic Other diseases of kidney and ureters (20 sources) Renal impairment; Translations: [Disorder of kidney and ureter, unspecified] 10-10-2018 Episodic Other diseases of kidney and ureters (6 sources) Disorder of kidney and ureter, unspecified; Translations: [Unspecified disorder of kidney and ureter] 11-02-2022 Episodic Other diseases of veins and lymphatics (20 sources) Vascular insufficiency; Translations: [Venous insufficiency (chronic) (peripheral)] 09-10-2020 Episodic Other diseases of veins and lymphatics (6 sources) Venous insufficiency (chronic) (peripheral); Translations: [Venous (peripheral) insufficiency, unspecified] 11-02-2022 Episodic Other ear and sense organ disorders (20 sources) Impacted cerumen; Translations: [Impacted cerumen, unspecified ear] 07-22-2022 Episodic Other ear and sense organ disorders (16 sources) Impacted cerumen, unspecified ear; Translations: [Impacted cerumen] 07-22-2022 Episodic Other gastrointestinal disorders (20 sources) Diarrhea; Translations: [Diarrhea, unspecified] 08-11-2022 Episodic Other gastrointestinal disorders (14 sources) Diarrhea, unspecified; Translations: [Diarrhea] 08-11-2022 Episodic Other inflammatory condition of skin (11 sources) Intertrigo; Translations: [Erythema intertrigo] 09-29-2022 Episodic Other inflammatory condition of skin (5 sources) Erythema intertrigo; Translations: [Other specified erythematous conditions] 09-29-2022 Episodic Other lower respiratory disease (20 sources) Dyspnea; Translations: [Dyspnea, unspecified] 11-02-2018 Episodic Other nervous system disorders (20 sources) Chronic pain; Translations: [Other chronic pain] 01-05-2019 Chronic Other nervous system disorders (1 source) Disorder of brain; Translations: [Encephalopathy, unspecified] Onset: Chronic Other nervous system disorders (1 source) Influenza with encephalopathy; Translations: [Influenza due to other identified influenza virus with encephalopathy] Episodic Other nervous system disorders (2 sources) Toxic encephalopathy; Translations: [Other toxic encephalopathy] Episodic Other non-traumatic joint disorders (1 source) Knee joint effusion; Translations: [Effusion, right knee] Onset: 5 Episodic Other non-traumatic joint disorders (1 source) Effusion of right knee joint 10-19-2024 Episodic Other non-traumatic joint disorders (1 source) Effusion, right knee; Translations: [Effusion, right knee] Onset: 5 Episodic Other nutritional; endocrine; and metabolic disorders (1 source) Severe obesity; Translations: [Morbid (severe) obesity due to excess calories] Onset: 5 10-12-2017 Chronic Other nutritional; endocrine; and metabolic disorders (20 sources) Body mass index 40+ - severely obese; Translations: [Body mass index (BMI) 40.0-44.9, adult] 11-02-2018 Chronic Other nutritional; endocrine; and metabolic disorders (3 sources) Failure to thrive 01-26-2021 Episodic Other screening for suspected conditions (not mental disorders or infectious disease) (20 sources) Mammography abnormal; Translations: [Other abnormal and inconclusive findings on diagnostic imaging of breast] 07-07-2020 Episodic Pneumonia (except that caused by tuberculosis or sexually transmitted disease) (20 sources) Pneumonia; Translations: [Pneumonia, unspecified organism] Onset: 4 09-09-2022 Episodic Pulmonary heart disease (20 sources) Pulmonary hypertension; Translations: [Pulmonary hypertension, unspecified] 11-02-2018 Chronic Residual codes; unclassified (20 sources) Sleep apnea; Translations: [Sleep apnea, unspecified] Onset: 7 09-11-2006 Chronic Residual codes; unclassified (20 sources) Obstructive sleep apnea syndrome; Translations: [Obstructive sleep apnea (adult) (pediatric)] 02-27-2021 Chronic Residual codes; unclassified (6 sources) Obstructive sleep apnea (adult) (pediatric); Translations: [Obstructive sleep apnea (adult)(pediatric)] 11-02-2022 Chronic Residual codes; unclassified (20 sources) H/O: fracture; Translations: [Other specified postprocedural states] Episodic Residual codes; unclassified (20 sources) History of vaccination; Translations: [Personal history of other drug therapy] 12-10-2020 Episodic Residual codes; unclassified (20 sources) Insomnia; Translations: [Insomnia, unspecified] 01-27-2021 Episodic Residual codes; unclassified (20 sources) Edema; Translations: [Edema, unspecified] 01-27-2021 Episodic Residual codes; unclassified (20 sources) History of colonoscopy; Translations: [Other specified postprocedural states] 12-02-2021 Episodic Residual codes; unclassified (20 sources) History of operation on musculoskeletal system; Translations: [Other specified postprocedural states] 04-28-2021 Episodic Residual codes; unclassified (9 sources) H/O Spinal surgery; Translations: [Other specified postprocedural states] 10-26-2022 Episodic Residual codes; unclassified (12 sources) Other specified postprocedural states; Translations: [Other postprocedural status] 11-02-2022 Episodic Residual codes; unclassified (6 sources) Acquired absence of both cervix and uterus; Translations: [Acquired absence of both cervix and uterus] 11-02-2022 Episodic Residual codes; unclassified (1 source) Altered mental status; Translations: [Altered mental status, unspecified] Episodic Residual codes; unclassified (1 source) Edema, unspecified; Translations: [Edema, unspecified] Onset: 5 Episodic Respiratory failure; insufficiency; arrest (adult) (20 sources) [id number] respiratory failure; Translations: [Acute and chronic respiratory failure with hypoxia] 09-09-2022 Chronic Respiratory failure; insufficiency; arrest (adult) (9 sources) Respiratory failure, unspecified, unspecified whether with hypoxia or hypercapnia; Translations: [Acute respiratory failure] Onset: 3 09-29-2022 Episodic Screening and history of mental health and substance abuse codes (20 sources) Ex-smoker; Translations: [Personal history of nicotine dependence] 07-13-2022 Episodic Septicemia (except in labor) (20 sources) Sepsis; Translations: [Sepsis, unspecified organism] 09-09-2022 Episodic Skin and subcutaneous tissue infections (20 sources) Cellulitis of finger; Translations: [Cellulitis of right finger] 07-06-2022 Episodic Skull and face fractures (2 sources) Closed fracture of nasal bones; Translations: [Fracture of nasal bones, initial encounter for closed fracture] Onset: 5 Episodic Spondylosis; intervertebral disc disorders; other back problems (20 sources) Spinal stenosis of lumbar region; Translations: [Spinal stenosis, lumbar region without neurogenic claudication] Onset: 7 09-11-2006 Episodic Superficial injury; contusion (20 sources) Contusion of knee; Translations: [Contusion of right knee, initial encounter] Onset: 5 01-26-2021 Episodic Unclassified (20 sources) Failure to thrive; Translations: [Failure to thrive] 01-26-2021 Unclassified (3 sources) History of cardioversion 07-21-2023 Urinary tract infections (20 sources) Urinary tract infectious disease; Translations: [Urinary tract infection, site not specified] Onset: 4 Episodic Past or Other Problems Problem Classification Problem Date Documented Da te Episodic/Chronic Fracture of neck of femur (hip) (3 sources) Closed fracture of neck of right femur; Translations: [Fracture of unspecified part of neck of right femur, initial encounter for closed fracture] Onset: 12-22-2022 Episodic Unclassified (1 source) Problem Unclassified (20 sources) Atrial fibrillation and flutter ; Translations: [Transient atrial fibrillation/flutte r] 08-11-2022 Results Test Name Value Interpretation Reference Range Facility .GFRon 10-22-2024 Estimated Glomerular Filtration Rate 55 ml/min/1.73sqm Normal [facility] Comment on above: Result Comment: Stages of Chronic Kidney Disease (CKD) Stage Description eGFR(ml/min/1.73 sq.m.) CKD 1 Normal kidney function or >=90 normal kindney function with possible kidney damage (ex. Proteinuria) CKD 2 Kidney damage with mild loss 60-89 of kidney function CKD 3a Mild to moderate loss of kidney 45-59 function CKD 3b Moderate to severe loss of 30-44 of kindey function CKD 4 Severe loss of kidney function 15-29 CKD 5 Kidney failure <15 Note: (go live 2024) the eGFR calculation was updated to the 2020 CKD-EPI creatinine equation without a race factor to calculate the eGFR results. Performed By: #### G FR, MG, BMP #### [facility] [address] [place], [place] [address] BMPon 10-22-2024 BUN/Creatinine Ratio 25 ratio Normal 7-27 [facility] Comment on above: Performed By: #### G FR, MG, BMP #### [facility] [address] [place], [place] [address] Calcium [Mass/Vol] 9.2 mg/dL Normal 8.4-10.2 [facility] Comment on above: Performed By: #### G FR, MG, BMP #### [address] [address] Chloride [Moles/Vol] 108 mmol/L High 98-107 [facility] Comment on above: Performed By: #### G FR, MG, BMP #### [address] [address] CO2 [Moles/Vol] 25 mmol/L Normal 23-31 [facility] Comment on above: Performed By: #### G FR, MG, BMP #### [address] [address] Creatinine [Mass/Vol] 1.07 mg/dL High 0.51-0.95 [facility] Comment on above: Performed By: #### G FR, MG, BMP #### [address] [address] Electrolyte Balance 9.0 mEq/L Normal 4.0-15.0 [facility] Comment on above: Performed By: #### G FR, MG, BMP #### [address] [address] Glucose [Mass/Vol] 119 mg/dL High 83-110 [facility] Comment on above: Performed By: #### G FR, MG, BMP #### [address] [address] Potassium [Moles/Vol] 4.5 mmol/L Normal 3.5-5.1 [facility] Comment on above: Performed By: #### G FR, MG, BMP #### [address] [address] Sodium [Moles/Vol] 142 mmol/L Normal 136-145 [facility] Comment on above: Performed By: #### G FR, MG, BMP #### [address] [address] Urea nitrogen [Mass/Vol] 27 mg/dL High 7-18 [facility] Comment on above: Performed By: #### G FR, MG, BMP #### [address] [address] LABORATORYOrdered By: SYSTEM SYSTEM on 10-22-2024 Calcium [Mass/Vol] 9.2 mg/dL Normal 8.4 - 10. 2 mg/dL AO ADM SS Chloride [Moles/Vol] 108 mmol/L High 98 - 10 7 mmol/L AO ADM SS CO2 [Moles/Vol] 25 mmol/L Normal 23 - 31 mmol/L AO ADM SS Creatinine [Mass/Vol] 1.07 mg/dL High 0.51 - 0.95 mg/dL AO ADM SS Electrolyte Balance 9.0 mEq/L Normal 4.0 - 15 .0 mEq/L AO ADM SS Estimated Glomerular Filtration Rate 55 ml/min/1.73sqm Invalid Interpretation Code AO Chemistry S Comment on above: Interpretive Data: Stages of Chronic Kidney Disease (CKD) Stage Description eGFR(ml/min/1.73 sq.m.) CKD 1 Normal kidney function or >=90 normal kindney function with possible kidney damage (ex. Proteinuria) CKD 2 Kidney damage with mild loss 60-89 of kidney function CKD 3a Mild to moderate loss of kidney 45-59 function CKD 3b Moderate to severe loss of 30-44 of kindey function CKD 4 Severe loss of kidney function 15-29 CKD 5 Kidney failure <15 Note: (go live 2024) the eGFR calculation was updated to the 2020 CKD-EPI creatinine equation without a race factor to calculate the eGFR results. Glucose [Mass/Vol] 119 mg/dL High 83 - 110 mg/dL AO ADM SS Magnesium [Mass/Vol] 2.1 mg/dL Normal 1.8 - 2 .4 mg/dL AO ADM SS Potassium [Moles/Vol] 4.5 mmol/L Normal 3.5 - 5.1 mmol/L AO ADM SS Sodium [Moles/Vol] 142 mmol/L Normal 136 - 145 mmol/L AO ADM SS Urea nitrogen [Mass/Vol] 27 mg/dL High 7 - 18 mg/dL AO ADM SS Urea nitrogen/Creatinine [Mass ratio] 25 ratio Normal 7 - 27 ratio AO ADM SS MGon 10-22-2024 Magnesium [Mass/Vol] 2.1 mg/dL Normal 1.8-2.4 [facility] Comment on above: Performed By: #### G FR, MG, BMP #### [address] [address] .GFRon 10-21-2024 Estimated Glomerular Filtration Rate 56 ml/min/1.73sqm Normal [facility] Comment on above: Result Comment: Stages of Chronic Kidney Disease (CKD) Stage Description eGFR(ml/min/1.73 sq.m.) CKD 1 Normal kidney function or >=90 normal kindney function with possible kidney damage (ex. Proteinuria) CKD 2 Kidney damage with mild loss 60-89 of kidney function CKD 3a Mild to moderate loss of kidney 45-59 function CKD 3b Moderate to severe loss of 30-44 of kindey function CKD 4 Severe loss of kidney function 15-29 CKD 5 Kidney failure <15 Note: (go live 2024) the eGFR calculation was updated to the 2020 CKD-EPI creatinine equation without a race factor to calculate the eGFR results. Performed By: #### U A, UAMIC #### [address] [address] BMPon 10-21-2024 BUN/Creatinine Ratio 23 ratio Normal 7-27 [facility] Comment on above: Performed By: #### U A, UAMIC #### [address] [address] Calcium [Mass/Vol] 8.5 mg/dL Normal 8.4-10.2 [facility] Comment on above: Performed By: #### U A, UAMIC #### [address] [address] Chloride [Moles/Vol] 106 mmol/L Normal 98-107 [facility] Comment on above: Performed By: #### U A, UAMIC #### [address] [address] CO2 [Moles/Vol] 24 mmol/L Normal 23-31 [facility] Comment on above: Performed By: #### U A, UAMIC #### [address] [address] Creatinine [Mass/Vol] 1.06 mg/dL High 0.51-0.95 [facility] Comment on above: Performed By: #### U A, UAMIC #### [address] [id number] [place], [place] [address] Electrolyte Balance 10.0 mEq/L Normal 4.0-15.0 [facility] Comment on above: Performed By: #### U A, UAMIC #### [facility] [address] [place], [place] [address] Glucose [Mass/Vol] 98 mg/dL Normal 83-110 [facility] Comment on above: Performed By: #### U A, UAMIC #### [id number] [place], [place] [address] Potassium [Moles/Vol] 4.4 mmol/L Normal 3.5-5.1 [facility] Comment on above: Performed By: #### U A, UAMIC #### [address] [address] Sodium [Moles/Vol] 140 mmol/L Normal 136-145 [facility] Comment on above: Performed By: #### U A, UAMIC #### [address] [address] Urea nitrogen [Mass/Vol] 24 mg/dL High 7-18 [facility] Comment on above: Performed By: #### U A, UAMIC #### [address] [address] LABORATORYOrdered By: Nisa Gonzalez on 10-21-2024 Blood Glucose Testing Reason Routine (10/21/24 4:45 PM) [facility] [place] Glucose [Mass/Vol] 182 mg/dL High 82 - 115 mg/dL [facility] [place] Blood Glucose Testing Reason Routine (10/21/24 11:58 AM) [facility] [place] Glucose [Mass/Vol] 153 mg/dL High 82 - 115 mg/dL [facility] [place] Blood Glucose Testing Reason Routine (10/21/24 8:05 AM) [facility] [place] Glucose [Mass/Vol] 91 mg/dL Normal 82 - 115 mg/dL [facility] [place] LABORATORYOrdered By: SYSTEM SYSTEM on 10-21-2024 Calcium [Mass/Vol] 8.5 mg/dL Normal 8.4 - 10. 2 mg/dL AO ADM SS Chloride [Moles/Vol] 106 mmol/L Normal 98 - 10 7 mmol/L AO ADM SS CO2 [Moles/Vol] 24 mmol/L Normal 23 - 31 mmol/L AO ADM SS Creatinine [Mass/Vol] 1.06 mg/dL High 0.51 - 0.95 mg/dL AO ADM SS Electrolyte Balance 10.0 mEq/L Normal 4.0 - 15 .0 mEq/L AO ADM SS Estimated Glomerular Filtration Rate 56 ml/min/1.73sqm Invalid Interpretation Code AO Chemistry S Comment on above: Interpretive Data: Stages of Chronic Kidney Disease (CKD) Stage Description eGFR(ml/min/1.73 sq.m.) CKD 1 Normal kidney function or >=90 normal kindney function with possible kidney damage (ex. Proteinuria) CKD 2 Kidney damage with mild loss 60-89 of kidney function CKD 3a Mild to moderate loss of kidney 45-59 function CKD 3b Moderate to severe loss of 30-44 of kindey function CKD 4 Severe loss of kidney function 15-29 CKD 5 Kidney failure <15 Note: (go live 2024) the eGFR calculation was updated to the 2020 CKD-EPI creatinine equation without a race factor to calculate the eGFR results. Glucose [Mass/Vol] 98 mg/dL Normal 83 - 110 mg/dL AO ADM SS Magnesium [Mass/Vol] 2.0 mg/dL Normal 1.8 - 2 .4 mg/dL AO ADM SS Potassium [Moles/Vol] 4.4 mmol/L Normal 3.5 - 5.1 mmol/L AO ADM SS Sodium [Moles/Vol] 140 mmol/L Normal 136 - 145 mmol/L AO ADM SS Urea nitrogen [Mass/Vol] 24 mg/dL High 7 - 18 mg/dL AO ADM SS Urea nitrogen/Creatinine [Mass ratio] 23 ratio Normal 7 - 27 ratio AO ADM SS MGon 10-21-2024 Magnesium [Mass/Vol] 2.0 mg/dL Normal 1.8-2.4 [facility] Comment on above: Performed By: #### ARNOLDO Wade #### [address] [place] [address] [place], [place] [address] .GFROrdered By: SYSTEM SYSTE M on 10-20-2024 Estimated Glomerular Filtration Rate 58 ml/min/1.73sqm Normal AO Chemistry S Comment on above: Interpretive Data: Stages of Chronic Kidney Disease (CKD) Stage Description eGFR(ml/min/1.73 sq.m.) CKD 1 Normal kidney function or >=90 normal kindney function with possible kidney damage (ex. Proteinuria) CKD 2 Kidney damage with mild loss 60-89 of kidney function CKD 3a Mild to moderate loss of kidney 45-59 function CKD 3b Moderate to severe loss of 30-44 of kindey function CKD 4 Severe loss of kidney function 15-29 CKD 5 Kidney failure <15 Note: (go live 2024) the eGFR calculation was updated to the 2020 CKD-EPI creatinine equation without a race factor to calculate the eGFR results. Result Comment: Stages of Chronic Kidney Disease (CKD) Stage Description eGFR(ml/min/1.73 sq.m.) CKD 1 Normal kidney function or >=90 normal kindney function with possible kidney damage (ex. Proteinuria) CKD 2 Kidney damage with mild loss 60-89 of kidney function CKD 3a Mild to moderate loss of kidney 45-59 function CKD 3b Moderate to severe loss of 30-44 of kindey function CKD 4 Severe loss of kidney function 15-29 CKD 5 Kidney failure <15 Note: (go live 2024) the eGFR calculation was updated to the 2020 CKD-EPI creatinine equation without a race factor to calculate the eGFR results. Performed By: #### ARNOLDO Wade #### [address] [place], [place] [address] BMPon 10-20-2024 BUN/Creatinine Ratio 21 ratio Normal 7-27 [facility] Comment on above: Performed By: #### ROS WadeMIC #### [address] [place], [place] [address] BMPOrdered By: SYSTEM SYSTEM on 10-20-2024 Calcium [Mass/Vol] 8.9 mg/dL Normal 8.4-10.2 AO ADM SS Comment on above: Performed By: #### U Karla, UAMIC #### [facility] [address] [address] Chloride [Moles/Vol] 108 mmol/L High 98-107 AO A DM SS Comment on above: Performed By: #### U A, UAMIC #### [facility] [address] [address] CO2 [Moles/Vol] 26 mmol/L Normal 23-31 AO ADM SS Comment on above: Performed By: #### U Karla, UAMIC #### [facility] [address] [address] Creatinine [Mass/Vol] 1.02 mg/dL High 0.51-0.95 AO ADM SS Comment on above: Performed By: #### U Karla, UAMIC #### [facility] [address] [address] Electrolyte Balance 6.0 mEq/L Normal 4.0-15.0 AO AD M SS Comment on above: Performed By: #### U Karla, UAMIC #### [address] [address] Glucose [Mass/Vol] 94 mg/dL Normal 83-110 AO ADM SS Comment on above: Performed By: #### U Karla, UAMIC #### [address] [address] Potassium [Moles/Vol] 4.5 mmol/L Normal 3.5-5.1 AO ADM SS Comment on above: Performed By: #### U A, UAMIC #### Man [address] [address] Sodium [Moles/Vol] 140 mmol/L Normal 136-145 AO ADM SS Comment on above: Performed By: #### U A, UAMIC #### Man [address] [address] Urea nitrogen [Mass/Vol] 21 mg/dL High 7-18 AO ADM SS Comment on above: Performed By: #### U A, UAMIC #### [address] [address] LABORATORYOrdered By: SYSTEM SYSTEM on 10-20-2024 Urea nitrogen/Creatinine [Mass ratio] 21 ratio Normal 7 - 27 ratio AO ADM SS MGOrdered By: SYSTEM SYSTEM on 10-20-2024 Magnesium [Mass/Vol] 2.1 mg/dL Normal 1.8-2.4 AO A DM SS Comment on above: Performed By: #### U A, UAMIC #### [address] [address] .GFRon 10-19-2024 Estimated Glomerular Filtration Rate 58 ml/min/1.73sqm Normal [facility] Comment on above: Result Comment: Stages of Chronic Kidney Disease (CKD) Stage Description eGFR(ml/min/1.73 sq.m.) CKD 1 Normal kidney function or >=90 normal kindney function with possible kidney damage (ex. Proteinuria) CKD 2 Kidney damage with mild loss 60-89 of kidney function CKD 3a Mild to moderate loss of kidney 45-59 function CKD 3b Moderate to severe loss of 30-44 of kindey function CKD 4 Severe loss of kidney function 15-29 CKD 5 Kidney failure <15 Note: (go live 2024) the eGFR calculation was updated to the 2020 CKD-EPI creatinine equation without a race factor to calculate the eGFR results. Performed By: #### G FR, MG, BMP #### [address] [address] BMPon 10-19-2024 BUN/Creatinine Ratio 24 ratio Normal 7-27 [facility] Comment on above: Performed By: #### G FR, MG, BMP #### [address] [address] Calcium [Mass/Vol] 8.8 mg/dL Normal 8.4-10.2 [facility] Comment on above: Performed By: #### G FR, MG, BMP #### [address] [address] Chloride [Moles/Vol] 107 mmol/L Normal 98-107 [facility] Comment on above: Performed By: #### G FR, MG, BMP #### [address] [address] CO2 [Moles/Vol] 28 mmol/L Normal 23-31 [facility] Comment on above: Performed By: #### G FR, MG, BMP #### [address] [address] Creatinine [Mass/Vol] 1.03 mg/dL High 0.51-0.95 [facility] Comment on above: Performed By: #### G FR, MG, BMP #### [address] [address] Electrolyte Balance 7.0 mEq/L Normal 4.0-15.0 [facility] Comment on above: Performed By: #### G FR, MG, BMP #### [address] [address] Glucose [Mass/Vol] 67 mg/dL Low 83-110 [facility] Comment on above: Performed By: #### G FR MG, BMP #### [address] [address] Potassium [Moles/Vol] 4.0 mmol/L Normal 3.5-5.1 [facility] Comment on above: Performed By: #### G FR, MG, BMP #### [address] [address] Sodium [Moles/Vol] 142 mmol/L Normal 136-145 [facility] Comment on above: Performed By: #### G FR, MG, BMP #### [address] [address] Urea nitrogen [Mass/Vol] 25 mg/dL High 7-18 [facility] Comment on above: Performed By: #### G FR, MG, BMP #### [address] [address] MGon 10-19-2024 Magnesium [Mass/Vol] 2.0 mg/dL Normal 1.8-2.4 [facility] Comment on above: Performed By: #### G FR, MG, BMP #### [facility] [address] [place], [place] [address] .Auto Diffon 10-18-2024 Basophil, Absolute 0.0 10 3/mcL Normal 0.0-0.3 [facility] Comment on above: Performed By: #### M RSAPCR #### [address] [address] Basophils/100 WBC (Bld) 0.5 % Normal 0.0-2.5 [facility] Comment on above: Performed By: #### M RSAPCR #### [address] [address] Eosinophil, Absolute 0.3 10 3/mcL Normal 0.0-0.7 [facility] Comment on above: Performed By: #### M RSAPCR #### [address] [address] Eosinophils/100 WBC (Bld) 4.3 % Normal 0.0-6.0 [facility] Comment on above: Performed By: #### M RSAPCR #### [address] [address] Lymphocyte, Absolute 0.9 10 3/mcL Normal 0.9-4.3 [facility] Comment on above: Performed By: #### M RSAPCR #### [address] [address] Lymphocytes/100 WBC (Bld) 12.0 % Low 20.0-40.0 [facility] Comment on above: Performed By: #### M RSAPCR #### [address] [address] Monocyte, Absolute 0.3 10 3/mcL Normal 0.1-1.4 [facility] Comment on above: Performed By: #### M RSAPCR #### [address] [address] Monocytes/100 WBC (Bld) 4.1 % Normal 2.0-13.0 [facility] Comment on above: Performed By: #### M RSAPCR #### [address] [address] Neutrophils/100 WBC (Bld) 79.1 % High 50.0-75.0 [facility] Comment on above: Performed By: #### M RSAPCR #### [address] [address] .GFRon 10-18-2024 Estimated Glomerular Filtration Rate 51 ml/min/1.73sqm Normal [facility] Comment on above: Result Comment: Stages of Chronic Kidney Disease (CKD) Stage Description eGFR(ml/min/1.73 sq.m.) CKD 1 Normal kidney function or >=90 normal kindney function with possible kidney damage (ex. Proteinuria) CKD 2 Kidney damage with mild loss 60-89 of kidney function CKD 3a Mild to moderate loss of kidney 45-59 function CKD 3b Moderate to severe loss of 30-44 of kindey function CKD 4 Severe loss of kidney function 15-29 CKD 5 Kidney failure <15 Note: (go live 2024) the eGFR calculation was updated to the 2020 CKD-EPI creatinine equation without a race factor to calculate the eGFR results. Performed By: #### M RSAPCR #### [address] [address] .NEUABSon 10-18-2024 Neutrophil, Absolute 6.1 10 3/mcL Normal 2.3-8.1 [facility] Comment on above: Performed By: #### M RSAPCR #### [address] [address] BMPon 10-18-2024 BUN/Creatinine Ratio 24 ratio Normal 7-27 [facility] Comment on above: Performed By: #### M RSAPCR #### [address] [address] Calcium [Mass/Vol] 9.1 mg/dL Normal 8.4-10.2 [facility] Comment on above: Performed By: #### M RSAPCR #### [address] [address] Chloride [Moles/Vol] 106 mmol/L Normal 98-107 [facility] Comment on above: Performed By: #### M RSAPCR #### [address] [address] CO2 [Moles/Vol] 24 mmol/L Normal 23-31 [facility] Comment on above: Performed By: #### M RSAPCR #### [address] [address] Creatinine [Mass/Vol] 1.14 mg/dL High 0.51-0.95 [facility] Comment on above: Performed By: #### M RSAPCR #### [address] [address] Electrolyte Balance 10.0 mEq/L Normal 4.0-15.0 [facility] Comment on above: Performed By: #### M RSAPCR #### [place] [id number] Glucose [Mass/Vol] 149 mg/dL High 83-110 [facility] Comment on above: Performed By: #### M RSAPCR #### [place] [id number] Potassium [Moles/Vol] 4.1 mmol/L Normal 3.5-5.1 [facility] Comment on above: Performed By: #### M RSAPCR #### [place] [id number] Sodium [Moles/Vol] 140 mmol/L Normal 136-145 [facility] Comment on above: Performed By: #### M RSAPCR #### [address] [address] Urea nitrogen [Mass/Vol] 27 mg/dL High 7-18 [facility] Comment on above: Performed By: #### M RSAPCR #### [address] [address] CBCon 10-18-2024 Erythrocyte distribution width (RBC) [Ratio] 16.2 % High 11.5-15.5 [facility] Comment on above: Performed By: #### M RSAPCR #### [address] [address] Hematocrit (Bld) [Volume fraction] 29.9 % Low 34.0-46.0 [facility] Comment on above: Performed By: #### M RSAPCR #### [place] [address] Hgb 10.0 G/dL Low 12.0-16.0 [facility] Comment on above: Performed By: #### M RSAPCR #### [place] [address] MCH (RBC) [Entitic mass] 28.6 pg Normal 27.0-33.0 [facility] Comment on above: Performed By: #### M RSAPCR #### [place] [address] MCHC 33.3 G/dL Normal 32.0-36.0 [facility] Comment on above: Performed By: #### M RSAPCR #### [place] [address] MCV (RBC) [Entitic vol] 86.0 fL Normal 80.0-99.0 [facility] Comment on above: Performed By: #### M RSAPCR #### [place] [address] Platelet 202 10 3/mcL Normal 150-450 [facility] Comment on above: Performed By: #### M RSAPCR #### [place] [address] Platelet mean volume (Bld) [Entitic vol] 7.8 fL Normal 6.6-10.5 [facility] Comment on above: Performed By: #### M RSAPCR #### [place] [address] RBC 3.48 10 6/mcL Low 4.10-5.30 [facility] Comment on above: Performed By: #### M RSAPCR #### [place] [address] WBC 7.7 10 3/mcL Normal 4.5-10.8 [facility] Comment on above: Performed By: #### M RSAPCR #### [place] [address] Nora 10-18-2024 Ferritin [Mass/Vol] 112.0 ng/mL Normal 8.0-252.0 [facility] Comment on above: Performed By: #### M RSAPCR #### [facility] [address] [place], [place] [id number] FESon 10-18-2024 Iron [Mass/Vol] 34 ug/dL Low 50-170 [facility] Comment on above: Performed By: #### M RSAPCR #### [facility] [address] [place] [address] Iron Sat 15 % Normal [facility] Comment on above: Performed By: #### M RSAPCR #### [facility] [address] [place] [address] TIBC 220 mcg/dL Low 250-450 [facility] Comment on above: Performed By: #### M RSAPCR #### [place] [address] LABORATORYOrdered By: Raudel Pabon on 10-18-2024 Blood Glucose Interventions Administered food/juice (10/18/24 9:49 PM) [facility] [place] LABORATORYOrdered By: SYSTEM SYSTEM on 10-18-2024 Basophils (Bld) [#/Vol] 0.0 103/mcL Normal 0.0 - 0.3 10^3/mcL AO Workflow SS Basophils/100 WBC (Bld) 0.5 % Normal 0.0 - 2.5 % AO Workflow SS Eosinophil, Absolute 0.3 103/mcL Normal 0.0 - 0 .7 10^3/mcL AO Workflow SS Eosinophils/100 WBC (Bld) 4.3 % Normal 0.0 - 6.0 % AO Workflow SS Erythrocyte distribution width (RBC) [Ratio] 16.2 % High 11.5 - 15.5 % AO Workflow SS Ferritin [Mass/Vol] 112.0 ng/mL Normal 8.0 - 25 2.0 ng/mL AO ADM SS Hematocrit (Bld) [Volume fraction] 29.9 % Low 34.0 - 46.0 % AO Workflow SS Hemoglobin (Bld) [Mass/Vol] 10.0 G/dL Low 12.0 - 16.0 G/dL AO Workflow SS Iron [Mass/Vol] 34 ug/dL Low 50 - 170 mcg/dL AO ADM SS Iron binding capacity [Mass/Vol] 220 mcg/dL Low 250 - 450 mcg/dL AO ADM SS Iron Sat 15 % Invalid Interpretation Code AO ADM SS Lymphocytes (Bld) [#/Vol] 0.9 103/mcL Normal 0.9 - 4.3 10^3/mcL AO Workflow SS Lymphocytes/100 WBC (Bld) 12.0 % Low 20.0 - 40.0 % AO Workflow SS MCH (RBC) [Entitic mass] 28.6 pg Normal 27. 0 - 33.0 pg AO Workflow SS MCHC 33.3 G/dL Normal 32.0 - 36.0 G/dL AO Workflow SS MCV (RBC) [Entitic vol] 86.0 fL Normal 80.0 - 99.0 fL AO Workflow SS Monocytes (Bld) [#/Vol] 0.3 103/mcL Normal 0.1 - 1.4 10^3/mcL AO Workflow SS Monocytes/100 WBC (Bld) 4.1 % Normal 2.0 - 13.0 % AO Workflow SS Neutrophils (Bld) [#/Vol] 6.1 103/mcL Normal 2.3 - 8.1 10^3/mcL AO Workflow SS Neutrophils/100 WBC (Bld) 79.1 % High 50.0 - 75.0 % AO Workflow SS Platelet mean volume (Bld) [Entitic vol] 7.8 fL Normal 6.6 - 10.5 fL AO Workflow SS Platelets (Bld) [#/Vol] 202 103/mcL Normal 150 - 450 10^3/mcL AO Workflow SS RBC (Bld) [#/Vol] 3.48 106/mcL Low 4.10 - 5.3 0 10^6/mcL AO Workflow SS WBC (Bld) [#/Vol] 7.7 103/mcL Normal 4.5 - 10.8 10^3/mcL AO Workflow SS MGon 10-18-2024 Magnesium [Mass/Vol] 2.0 mg/dL Normal 1.8-2.4 [facility] Comment on above: Performed By: #### M RSAPCR #### [address] [address] .Auto Diffon 10-17-2024 Basophil, Absolute 0.0 10 3/mcL Normal 0.0-0.3 [facility] Comment on above: Performed By: #### G FR, MG, BMP #### [address] [address] Basophils/100 WBC (Bld) 0.4 % Normal 0.0-2.5 [facility] Comment on above: Performed By: #### G FR, MG, BMP #### [address] [address] Eosinophil, Absolute 0.1 10 3/mcL Normal 0.0-0.7 [facility] Comment on above: Performed By: #### G FR, MG, BMP #### [address] [address] Eosinophils/100 WBC (Bld) 1.8 % Normal 0.0-6.0 [facility] Comment on above: Performed By: #### G FR, MG, BMP #### [address] [address] Lymphocyte, Absolute 1.0 10 3/mcL Normal 0.9-4.3 [facility] Comment on above: Performed By: #### G FR, MG, BMP #### [address] [address] Lymphocytes/100 WBC (Bld) 12.4 % Low 20.0-40.0 [facility] Comment on above: Performed By: #### G FR, MG, BMP #### [address] [address] Monocyte, Absolute 0.3 10 3/mcL Normal 0.1-1.4 [facility] Comment on above: Performed By: #### G FR, MG, BMP #### [address] [address] Monocytes/100 WBC (Bld) 3.8 % Normal 2.0-13.0 [facility] Comment on above: Performed By: #### G FR, MG, BMP #### [address] [address] Neutrophils/100 WBC (Bld) 81.6 % High 50.0-75.0 [facility] Comment on above: Performed By: #### G FR, MG, BMP #### [address] [address] .GFRon 10-17-2024 Estimated Glomerular Filtration Rate 50 ml/min/1.73sqm Normal [facility] Comment on above: Result Comment: Stages of Chronic Kidney Disease (CKD) Stage Description eGFR(ml/min/1.73 sq.m.) CKD 1 Normal kidney function or >=90 normal kindney function with possible kidney damage (ex. Proteinuria) CKD 2 Kidney damage with mild loss 60-89 of kidney function CKD 3a Mild to moderate loss of kidney 45-59 function CKD 3b Moderate to severe loss of 30-44 of kindey function CKD 4 Severe loss of kidney function 15-29 CKD 5 Kidney failure <15 Note: (go live 2024) the eGFR calculation was updated to the 2020 CKD-EPI creatinine equation without a race factor to calculate the eGFR results. Performed By: #### A DIFF, BMP, GFR, MG, ANEU, CBC #### [address] [address] .NEUABSon 10-17-2024 Neutrophil, Absolute 6.4 10 3/mcL Normal 2.3-8.1 [facility] Comment on above: Performed By: #### G FR, MG, BMP #### [address] [address] BMPon 10-17-2024 BUN/Creatinine Ratio 26 ratio Normal 7-27 [facility] Comment on above: Performed By: #### A DIFF, BMP, GFR, MG, ANEU, CBC #### [address] [address] Calcium [Mass/Vol] 8.8 mg/dL Normal 8.4-10.2 [facility] Comment on above: Performed By: #### A DIFF, BMP, GFR, MG, ANEU, CBC #### [address] [address] Chloride [Moles/Vol] 105 mmol/L Normal 98-107 [facility] Comment on above: Performed By: #### A DIFF, BMP, GFR, MG, ANEU, CBC #### [address] [address] CO2 [Moles/Vol] 24 mmol/L Normal 23-31 [facility] Comment on above: Performed By: #### A DIFF, BMP, GFR, MG, ANEU, CBC #### [address] [address] Creatinine [Mass/Vol] 1.17 mg/dL High 0.51-0.95 [facility] Comment on above: Performed By: #### A DIFF, BMP, GFR, MG, ANEU, CBC #### [place] [address] Electrolyte Balance 9.0 mEq/L Normal 4.0-15.0 [facility] Comment on above: Performed By: #### A DIFF, BMP, GFR, MG, ANEU, CBC #### [place] [address] Glucose [Mass/Vol] 120 mg/dL High 83-110 [facility] Comment on above: Performed By: #### A DIFF, BMP, GFR, MG, ANEU, CBC #### [address] [address] Potassium [Moles/Vol] 4.1 mmol/L Normal 3.5-5.1 [facility] Comment on above: Performed By: #### A DIFF, BMP, GFR, MG, ANEU, CBC #### [address] [address] Sodium [Moles/Vol] 138 mmol/L Normal 136-145 [facility] Comment on above: Performed By: #### A DIFF, BMP, GFR, MG, ANEU, CBC #### [place] [address] Urea nitrogen [Mass/Vol] 30 mg/dL High 7-18 [facility] Comment on above: Performed By: #### A DIFF, BMP, GFR, MG, ANEU, CBC #### [place] [address] CBCon 10-17-2024 Erythrocyte distribution width (RBC) [Ratio] 16.0 % High 11.5-15.5 [facility] Comment on above: Performed By: #### A DIFF, BMP, GFR, MG, ANEU, CBC #### [address] [address] Hematocrit (Bld) [Volume fraction] 30.7 % Low 34.0-46.0 [facility] Comment on above: Performed By: #### A DIFF, BMP, GFR, MG, ANEU, CBC #### [address] [address] Hgb 10.4 G/dL Low 12.0-16.0 [facility] Comment on above: Performed By: #### A DIFF, BMP, GFR, MG, ANEU, CBC #### [address] [address] MCH (RBC) [Entitic mass] 28.7 pg Normal 27.0-33.0 [facility] Comment on above: Performed By: #### A DIFF, BMP, GFR, MG, ANEU, CBC #### [place] [address] MCHC 33.8 G/dL Normal 32.0-36.0 [facility] Comment on above: Performed By: #### A DIFF, BMP, GFR, MG, ANEU, CBC #### [address] [address] MCV (RBC) [Entitic vol] 84.9 fL Normal 80.0-99.0 [facility] Comment on above: Performed By: #### A DIFF, BMP, GFR, MG, ANEU, CBC #### [address] [address] Platelet 211 10 3/mcL Normal 150-450 [facility] Comment on above: Performed By: #### A DIFF, BMP, GFR, MG, ANEU, CBC #### [address] [address] Platelet mean volume (Bld) [Entitic vol] 8.2 fL Normal 6.6-10.5 [facility] Comment on above: Performed By: #### A DIFF, BMP, GFR, MG, ANEU, CBC #### [place] [address] [place], [place] [address] RBC 3.62 10 6/mcL Low 4.10-5.30 [facility] Comment on above: Performed By: #### A DIFF, BMP, GFR, MG, ANEU, CBC #### [place] [address] [place], [place] [address] WBC 7.9 10 3/mcL Normal 4.5-10.8 [facility] Comment on above: Performed By: #### A DIFF, BMP, GFR, MG, ANEU, CBC #### [place] [address] [place], [place] [address] LABORATORYOrdered By: SYSTEM SYSTEM on 10-17-2024 Basophils (Bld) [#/Vol] 0.0 103/mcL Normal 0.0 - 0.3 10^3/mcL AO Workflow SS Basophils/100 WBC (Bld) 0.4 % Normal 0.0 - 2.5 % AO Workflow SS Eosinophil, Absolute 0.1 103/mcL Normal 0.0 - 0 .7 10^3/mcL AO Workflow SS Eosinophils/100 WBC (Bld) 1.8 % Normal 0.0 - 6.0 % AO Workflow SS Erythrocyte distribution width (RBC) [Ratio] 16.0 % High 11.5 - 15.5 % AO Workflow SS Hematocrit (Bld) [Volume fraction] 30.7 % Low 34.0 - 46.0 % AO Workflow SS Hemoglobin (Bld) [Mass/Vol] 10.4 G/dL Low 12.0 - 16.0 G/dL AO Workflow SS Lymphocytes (Bld) [#/Vol] 1.0 103/mcL Normal 0.9 - 4.3 10^3/mcL AO Workflow SS Lymphocytes/100 WBC (Bld) 12.4 % Low 20.0 - 40.0 % AO Workflow SS MCH (RBC) [Entitic mass] 28.7 pg Normal 27. 0 - 33.0 pg AO Workflow SS MCHC 33.8 G/dL Normal 32.0 - 36.0 G/dL AO Workflow SS MCV (RBC) [Entitic vol] 84.9 fL Normal 80.0 - 99.0 fL AO Workflow SS Monocytes (Bld) [#/Vol] 0.3 103/mcL Normal 0.1 - 1.4 10^3/mcL AO Workflow SS Monocytes/100 WBC (Bld) 3.8 % Normal 2.0 - 13.0 % AO Workflow SS Neutrophils (Bld) [#/Vol] 6.4 103/mcL Normal 2.3 - 8.1 10^3/mcL AO Workflow SS Neutrophils/100 WBC (Bld) 81.6 % High 50.0 - 75.0 % AO Workflow SS Platelet mean volume (Bld) [Entitic vol] 8.2 fL Normal 6.6 - 10.5 fL AO Workflow SS Platelets (Bld) [#/Vol] 211 103/mcL Normal 150 - 450 10^3/mcL AO Workflow SS RBC (Bld) [#/Vol] 3.62 106/mcL Low 4.10 - 5.3 0 10^6/mcL AO Workflow SS WBC (Bld) [#/Vol] 7.9 103/mcL Normal 4.5 - 10.8 10^3/mcL AO Workflow SS MGon 10-17-2024 Magnesium [Mass/Vol] 1.7 mg/dL Low 1.8-2.4 [facility] Comment on above: Performed By: #### A DIFF, BMP, GFR, MG, ANEU, CBC #### [address] [address] .Auto Diffon 10-16-2024 Basophil, Absolute 0.0 10 3/mcL Normal 0.0-0.3 [facility] Comment on above: Performed By: #### G FR, MG, BMP #### [address] [address] Basophils/100 WBC (Bld) 0.6 % Normal 0.0-2.5 [facility] Comment on above: Performed By: #### G FR, MG, BMP #### [address] [address] Eosinophil, Absolute 0.3 10 3/mcL Normal 0.0-0.7 [facility] Comment on above: Performed By: #### G FR, MG, BMP #### [address] [address] Eosinophils/100 WBC (Bld) 3.7 % Normal 0.0-6.0 [facility] Comment on above: Performed By: #### G FR, MG, BMP #### [address] [address] Lymphocyte, Absolute 1.4 10 3/mcL Normal 0.9-4.3 [facility] Comment on above: Performed By: #### G FR, MG, BMP #### [address] [address] Lymphocytes/100 WBC (Bld) 19.7 % Low 20.0-40.0 [facility] Comment on above: Performed By: #### G FR, MG, BMP #### [address] [address] Monocyte, Absolute 0.4 10 3/mcL Normal 0.1-1.4 [facility] Comment on above: Performed By: #### G FR, MG, BMP #### [address] [address] Monocytes/100 WBC (Bld) 5.2 % Normal 2.0-13.0 [facility] Comment on above: Performed By: #### G FR, MG, BMP #### [address] [address] Neutrophils/100 WBC (Bld) 70.8 % Normal 50.0-75.0 [facility] Comment on above: Performed By: #### G FR, MG, BMP #### [address] [address] .GFRon 10-16-2024 Estimated Glomerular Filtration Rate 46 ml/min/1.73sqm Normal [facility] Comment on above: Result Comment: Stages of Chronic Kidney Disease (CKD) Stage Description eGFR(ml/min/1.73 sq.m.) CKD 1 Normal kidney function or >=90 normal kindney function with possible kidney damage (ex. Proteinuria) CKD 2 Kidney damage with mild loss 60-89 of kidney function CKD 3a Mild to moderate loss of kidney 45-59 function CKD 3b Moderate to severe loss of 30-44 of kindey function CKD 4 Severe loss of kidney function 15-29 CKD 5 Kidney failure <15 Note: (go live 2024) the eGFR calculation was updated to the 2020 CKD-EPI creatinine equation without a race factor to calculate the eGFR results. Performed By: #### M RSAPCR #### [facility] [address] [place] [id number] .NEUABSon 10-16-2024 Neutrophil, Absolute 4.9 10 3/mcL Normal 2.3-8.1 [facility] Comment on above: Performed By: #### G FR, MG, BMP #### [address] [address] BMPon 10-16-2024 BUN/Creatinine Ratio 27 ratio Normal 7-27 [facility] Comment on above: Performed By: #### G FR, MG, BMP #### [address] [address] Calcium [Mass/Vol] 9.1 mg/dL Normal 8.4-10.2 [facility] Comment on above: Performed By: #### G FR, MG, BMP #### [address] [address] Chloride [Moles/Vol] 107 mmol/L Normal 98-107 [facility] Comment on above: Performed By: #### G FR, MG, BMP #### [address] [address] CO2 [Moles/Vol] 27 mmol/L Normal 23-31 [facility] Comment on above: Performed By: #### G FR, MG, BMP #### [address] [address] Creatinine [Mass/Vol] 1.25 mg/dL High 0.51-0.95 [facility] Comment on above: Performed By: #### G FR, MG, BMP #### [address] [address] Electrolyte Balance 7.0 mEq/L Normal 4.0-15.0 [facility] Comment on above: Performed By: #### G FR, MG, BMP #### [address] [address] Glucose [Mass/Vol] 102 mg/dL Normal 83-110 [facility] Comment on above: Performed By: #### G FR, MG, BMP #### [address] [address] Potassium [Moles/Vol] 4.5 mmol/L Normal 3.5-5.1 [facility] Comment on above: Performed By: #### G FR, MG, BMP #### [address] [address] Sodium [Moles/Vol] 141 mmol/L Normal 136-145 [facility] Comment on above: Performed By: #### G FR, MG, BMP #### [address] [address] Urea nitrogen [Mass/Vol] 34 mg/dL High 7-18 [facility] Comment on above: Performed By: #### G FR, MG, BMP #### [address] [address] CBCon 10-16-2024 Erythrocyte distribution width (RBC) [Ratio] 16.2 % High 11.5-15.5 [facility] Comment on above: Performed By: #### G FR, MG, BMP #### [address] [address] Hematocrit (Bld) [Volume fraction] 31.8 % Low 34.0-46.0 [facility] Comment on above: Performed By: #### G FR, MG, BMP #### [address] [address] Hgb 10.5 G/dL Low 12.0-16.0 [facility] Comment on above: Performed By: #### G FR, MG, BMP #### [address] [address] MCH (RBC) [Entitic mass] 28.5 pg Normal 27.0-33.0 [facility] Comment on above: Performed By: #### G FR, MG, BMP #### [address] [address] MCHC 33.0 G/dL Normal 32.0-36.0 [facility] Comment on above: Performed By: #### G FR, MG, BMP #### [address] [address] MCV (RBC) [Entitic vol] 86.1 fL Normal 80.0-99.0 [facility] Comment on above: Performed By: #### G FR, MG, BMP #### [address] [address] Platelet 221 10 3/mcL Normal 150-450 [facility] Comment on above: Performed By: #### G FR, MG, BMP #### [address] [address] Platelet mean volume (Bld) [Entitic vol] 8.3 fL Normal 6.6-10.5 [facility] Comment on above: Performed By: #### G FR, MG, BMP #### [address] [address] RBC 3.69 10 6/mcL Low 4.10-5.30 [facility] Comment on above: Performed By: #### G FR, MG, BMP #### [address] [address] WBC 7.0 10 3/mcL Normal 4.5-10.8 [facility] Comment on above: Performed By: #### G FR, MG, BMP #### [address] [address] LABORATORYOrdered By: Jose Padron on 10-16-2024 Appearance (U) Slightly Cloudy *ABN* (10/16/24 1:35 PM) Invalid Interpretation Code Clear AO Auto Urine SS Bacteria LM.HPF (Urine sed) [#/Area] 3 /[HPF] Invalid Interpretation Code Negative AO Auto Urine SS Bilirubin Ql (U) Negative (10/16/24 1:35 PM) Normal Negative AO Auto Urine SS Color (U) Yellow (10/16/24 1:35 PM) Normal AO Auto Urine SS Glucose Test strip (U) [Mass/Vol] Negative Normal Negative AO Auto Urine SS Hemoglobin Auto test strip (U) [Mass/Vol] Negative (10/16/24 1:35 PM) Normal Negative AO Auto Urine SS Ketones Ql (U) Negative Normal Negative AO Auto Ur ine SS UA Leuk Est Moderate *ABN* (10/16/24 1:35 PM) Invalid Interpretation Code Negative AO Auto Urine SS UA Nitrite Positive *ABN* (10/16/24 1:35 PM) Invalid Interpretation Code Negative AO Auto Urine SS UA pH 6.5 (10/16/24 1:35 PM) Normal 5.0 - 8.0 AO Auto Urine SS UA Protein Trace mg/dL Normal Negative AO Auto Urine SS UA RBC Negative Normal 0-2 AO Auto Urine SS UA Spec Grav 1.015 (10/16/24 1:35 PM) Normal 1.015-1.025 AO Auto Urine SS UA Specimen Type Clean Catch (10/16/24 1:35 PM) Normal AO Auto Urine SS UA Squam Epithelial 3-5 /HPF Normal 0-20 AO Au to Urine SS UA Urobilinogen 0.2 E.U./dL Normal 0.2-1.0 AO Auto Urine SS WBC LM.HPF (Urine sed) [#/Area] 10-20 /HPF Invalid Interpretation Code 0-5 AO Auto Urine SS LABORATORYOrdered By: SYSTEM SYSTEM on 10-16-2024 Basophils (Bld) [#/Vol] 0.0 103/mcL Normal 0.0 - 0.3 10^3/mcL AO Workflow SS Basophils/100 WBC (Bld) 0.6 % Normal 0.0 - 2.5 % AO Workflow SS Eosinophil, Absolute 0.3 103/mcL Normal 0.0 - 0 .7 10^3/mcL AO Workflow SS Eosinophils/100 WBC (Bld) 3.7 % Normal 0.0 - 6.0 % AO Workflow SS Erythrocyte distribution width (RBC) [Ratio] 16.2 % High 11.5 - 15.5 % AO Workflow SS Hematocrit (Bld) [Volume fraction] 31.8 % Low 34.0 - 46.0 % AO Workflow SS Hemoglobin (Bld) [Mass/Vol] 10.5 G/dL Low 12.0 - 16.0 G/dL AO Workflow SS Lymphocytes (Bld) [#/Vol] 1.4 103/mcL Normal 0.9 - 4.3 10^3/mcL AO Workflow SS Lymphocytes/100 WBC (Bld) 19.7 % Low 20.0 - 40.0 % AO Workflow SS MCH (RBC) [Entitic mass] 28.5 pg Normal 27. 0 - 33.0 pg AO Workflow SS MCHC 33.0 G/dL Normal 32.0 - 36.0 G/dL AO Workflow SS MCV (RBC) [Entitic vol] 86.1 fL Normal 80.0 - 99.0 fL AO Workflow SS Monocytes (Bld) [#/Vol] 0.4 103/mcL Normal 0.1 - 1.4 10^3/mcL AO Workflow SS Monocytes/100 WBC (Bld) 5.2 % Normal 2.0 - 13.0 % AO Workflow SS Neutrophils (Bld) [#/Vol] 4.9 103/mcL Normal 2.3 - 8.1 10^3/mcL AO Workflow SS Neutrophils/100 WBC (Bld) 70.8 % Normal 50.0 - 75.0 % AO Workflow SS Platelet mean volume (Bld) [Entitic vol] 8.3 fL Normal 6.6 - 10.5 fL AO Workflow SS Platelets (Bld) [#/Vol] 221 103/mcL Normal 150 - 450 10^3/mcL AO Workflow SS RBC (Bld) [#/Vol] 3.69 106/mcL Low 4.10 - 5.3 0 10^6/mcL AO Workflow SS WBC (Bld) [#/Vol] 7.0 103/mcL Normal 4.5 - 10.8 10^3/mcL AO Workflow SS MGon 10-16-2024 Magnesium [Mass/Vol] 1.7 mg/dL Low 1.8-2.4 [facility] Comment on above: Performed By: #### G FR, MG, BMP #### [facility] [address] [place], [place] [address] MRSAPCRon 10-16-2024 MRSA (PCR) Detected Abnormal Not Detected [facility] Comment on above: Result Comment: [place] [id number] Performed By: #### M RSAPCR #### [facility] [address] [place] [address] MRSA PCR Int See Below Normal [facility] Comment on above: Result Comment: Clinical Interpretation: Staph aureus DNA detected by Real-Time Polymerase Chain Reaction (PCR). Organism viability can not be determined since free bacterial DNA may persist in the absence of viable organisms. As with all PCR based in vitro diagnostic tests, extremely low levels of target below the limit of detection of the assay may be detected, but results may not be reproducible, and the clinical significance unknown. Infection control will be notified. Performed By: #### M RSAPCR #### [facility] [address] [place] [address] No Panel Informationon 10-16 Culture Urine >100,000 cfu/ml Multiple bacterial morphotypes present. Probable Contamination. Suggest recollection if clinically indicated. [facility] UAon 10-16-2024 Color (U) Yellow Normal [facility] Comment on above: Performed By: #### U A, UAMIC #### [place] [address] Glucose (U) [Mass/Vol] Negative Normal Negative [facility] Comment on above: Performed By: #### U A, UAMIC #### [place] [address] Ketones Ql (U) Negative Normal Negative [facility] Comment on above: Performed By: #### U A, UAMIC #### [place] [address] UA Appear Slightly Cloudy Abnormal Clear [facility] Comment on above: Performed By: #### U A, UAMIC #### [place] [address] UA Blood Negative Normal Negative [facility] Comment on above: Performed By: #### U A, UAMIC #### [place] [address] UA Leuk Est Moderate Abnormal Negative [facility] Comment on above: Performed By: #### U A, UAMIC #### [address] [address] UA Nitrite Positive Abnormal Negative [facility] Comment on above: Performed By: #### U A, UAMIC #### [address] [address] UA pH 6.5 Normal 5.0 - 8.0 [facility] Comment on above: Performed By: #### U A, UAMIC #### [place] [address] UA Protein Trace Normal Negative [facility] Comment on above: Performed By: #### U A, UAMIC #### [place] [address] UA Spec Grav 1.015 Normal 1.015-1.025 [facility] Comment on above: Performed By: #### U A, UAMIC #### [place] [address] UA Specimen Type Clean Catch Normal [facility] Comment on above: Performed By: #### U A, UAMIC #### [address] [address] UA Urobilinogen 0.2 E.U./dL Normal 0.2-1.0 [facility] Comment on above: Performed By: #### U A, UAMIC #### [place] [address] Urobilinogen (U) [Mass/Vol] Negative Normal Negative [facility] Comment on above: Performed By: #### U A, UAMIC #### [address] [address] UAMICon 10-16-2024 UA Bacteria 3+ /hpf Abnormal Negative [facility] Comment on above: Performed By: #### U A, UAMIC #### [place] [id number] UA RBC Negative Normal 0-2 [facility] Comment on above: Performed By: #### U A, UAMIC #### [address] [address] UA Squam Epithelial 3-5 Normal 0-20 [facility] Comment on above: Performed By: #### U A UAMIC #### [address] [address] UA WBC 10-20 Abnormal 0-5 [facility] Comment on above: Performed By: #### U A, UAMIC #### [address] [address] .Auto Diffon 10-15-2024 Basophil, Absolute 0.0 10 3/mcL Normal 0.0-0.3 [facility] Comment on above: Performed By: #### G FR MG, BMP #### [address] [address] Basophils/100 WBC (Bld) 0.3 % Normal 0.0-2.5 [facility] Comment on above: Performed By: #### Marycruz FR MG, BMP #### [address] [address] Eosinophil, Absolute 0.3 10 3/mcL Normal 0.0-0.7 [facility] Comment on above: Performed By: #### Marycruz FR MG, BMP #### [address] [address] Eosinophils/100 WBC (Bld) 3.2 % Normal 0.0-6.0 [facility] Comment on above: Performed By: #### G FR MG, BMP #### [address] [address] Lymphocyte, Absolute 1.0 10 3/mcL Normal 0.9-4.3 [facility] Comment on above: Performed By: #### G FR, MG, BMP #### [address] [address] Lymphocytes/100 WBC (Bld) 10.6 % Low 20.0-40.0 [facility] Comment on above: Performed By: #### G FR, MG, BMP #### [address] [address] Monocyte, Absolute 0.5 10 3/mcL Normal 0.1-1.4 [facility] Comment on above: Performed By: #### G FR, MG, BMP #### [place] [address] [place], [place] [address] Monocytes/100 WBC (Bld) 5.9 % Normal 2.0-13.0 [facility] Comment on above: Performed By: #### G FR, MG, BMP #### [place] [address] [place], [place] [address] Neutrophils/100 WBC (Bld) 80.0 % High 50.0-75.0 [facility] Comment on above: Performed By: #### G FR, MG, BMP #### [address] [address] .GFRon 10-15-2024 Estimated Glomerular Filtration Rate 43 ml/min/1.73sqm Normal [facility] Comment on above: Result Comment: Stages of Chronic Kidney Disease (CKD) Stage Description eGFR(ml/min/1.73 sq.m.) CKD 1 Normal kidney function or >=90 normal kindney function with possible kidney damage (ex. Proteinuria) CKD 2 Kidney damage with mild loss 60-89 of kidney function CKD 3a Mild to moderate loss of kidney 45-59 function CKD 3b Moderate to severe loss of 30-44 of kindey function CKD 4 Severe loss of kidney function 15-29 CKD 5 Kidney failure <15 Note: (go live 2024) the eGFR calculation was updated to the 2020 CKD-EPI creatinine equation without a race factor to calculate the eGFR results. Performed By: #### G FR, MG, BMP #### [address] [address] .MDWon 10-15-2024 Monocyte Distribution Width 19.85 Normal 0.00-20.00 [facility] Comment on above: Result Comment: For ED adult patients suspected of sepsis, MDW<=20.0 does not rule out sepsis or risk of sepsis Performed By: #### G FR, MG, BMP #### [address] [address] .NEUABSon 10-15-2024 Neutrophil, Absolute 7.2 10 3/mcL Normal 2.3-8.1 [facility] Comment on above: Performed By: #### Marycruz DELUNA MG, BMP #### [address] [address] BMPon 10-15-2024 BUN/Creatinine Ratio 25 ratio Normal 7-27 [facility] Comment on above: Performed By: #### Marycruz DELUNA MG, BMP #### [address] [address] Calcium [Mass/Vol] 9.3 mg/dL Normal 8.4-10.2 [facility] Comment on above: Performed By: #### Marycruz DELUNA MG, BMP #### [address] [address] Chloride [Moles/Vol] 104 mmol/L Normal 98-107 [facility] Comment on above: Performed By: #### Marycruz DELUNA MG, BMP #### [address] [address] CO2 [Moles/Vol] 25 mmol/L Normal 23-31 [facility] Comment on above: Performed By: #### Marycruz DELUNA MG, BMP #### [address] [address] Creatinine [Mass/Vol] 1.32 mg/dL High 0.51-0.95 [facility] Comment on above: Performed By: #### Marycruz DELUNA MG, BMP #### [address] [address] Electrolyte Balance 9.0 mEq/L Normal 4.0-15.0 [facility] Comment on above: Performed By: #### Marycruz FR MG, BMP #### [address] [address] Glucose [Mass/Vol] 219 mg/dL High 83-110 [facility] Comment on above: Performed By: #### Marycruz DELUNA MG, BMP #### [address] [address] Potassium [Moles/Vol] 5.4 mmol/L High 3.5-5.1 [facility] Comment on above: Performed By: #### MG PACO, BMP #### [address] [address] Sodium [Moles/Vol] 138 mmol/L Normal 136-145 [facility] Comment on above: Performed By: #### MG PACO, BMP #### [address] [address] Urea nitrogen [Mass/Vol] 33 mg/dL High 7-18 [facility] Comment on above: Performed By: #### MG PACO, BMP #### [address] [address] CBCon 10-15-2024 Erythrocyte distribution width (RBC) [Ratio] 16.0 % High 11.5-15.5 [facility] Comment on above: Performed By: #### MG PACO, BMP #### [address] [address] Hematocrit (Bld) [Volume fraction] 35.1 % Normal 34.0-46.0 [facility] Comment on above: Performed By: #### MG PACO, BMP #### [address] [address] Hgb 11.6 G/dL Low 12.0-16.0 [facility] Comment on above: Performed By: #### MG PACO, BMP #### [address] [address] MCH (RBC) [Entitic mass] 28.3 pg Normal 27.0-33.0 [facility] Comment on above: Performed By: #### Marycruz DELUNA MG, BMP #### [address] [address] MCHC 33.0 G/dL Normal 32.0-36.0 [facility] Comment on above: Performed By: #### MG PACO, BMP #### [address] [address] MCV (RBC) [Entitic vol] 85.6 fL Normal 80.0-99.0 [facility] Comment on above: Performed By: #### G FR MG, BMP #### [place] [address] [place], [place] [address] Platelet 255 10 3/mcL Normal 150-450 [facility] Comment on above: Performed By: #### G FR MG, BMP #### [place] [address] [place], [place] [address] Platelet mean volume (Bld) [Entitic vol] 8.4 fL Normal 6.6-10.5 [facility] Comment on above: Performed By: #### G FR MG, BMP #### [address] [address] RBC 4.11 10 6/mcL Normal 4.10-5.30 [facility] Comment on above: Performed By: #### Marycruz DELUNA MG, BMP #### [address] [address] WBC 9.0 10 3/mcL Normal 4.5-10.8 [facility] Comment on above: Performed By: #### G FR MG, BMP #### [address] [address] Sonny 10-15-2024 Potassium [Moles/Vol] 5.0 mmol/L Normal 3.5-5.1 [facility] Comment on above: Performed By: #### M RSAPCR #### [facility] [address] [place] [address] LABORATORYOrdered By: Kal Kim on 10-15-2024 MRSA (PCR) Detected 1 *ABN* (10/15/24 10:37 PM) Invalid Interpretation Code Not Detected [facility] Auto Viro/Sero SS Comment on above: Result Comment: [place] s [id number] MRSA PCR Int See Below 2 *NA* (10/15/24 10:37 PM) Invalid Interpretation Code AH Auto Viro/Sero SS Comment on above: Result Comment: Clinical Interpretation: Staph aureus DNA detected by Real-Time Polymerase Chain Reaction (PCR). Organism viability can not be determined since free bacterial DNA may persist in the absence of viable organisms. As with all PCR based in vitro diagnostic tests, extremely low levels of target below the limit of detection of the assay may be detected, but results may not be reproducible, and the clinical significance unknown. Infection control will be notified. LABORATORYOrdered By: SYSTEM SYSTEM on 10-15-2024 Monocyte distribution width Auto (Bld) [Entitic vol] 19.85 1 Normal 0.00 - 20.00 AO Workflow SS Comment on above: Result Comment: For ED adult patients suspected of sepsis, MDW<=20.0 does not rule out sepsis or risk of sepsis Troponin I.cardiac DL <= 0.01 ng/mL [Mass/Vol] 6 ng/L Normal 0 - 51 ng/L AO ADM SS Comment on above: Interpretive Data: H igh Sensitive Troponin I Reference Ranges: Female: 0-51 ng/L Male: 0-76 ng/L Testing performed on [employer] using a homogeneous sandwich chemiluminescent immunoassay based on [employer] technology. [facility] 10-15-2024 High Sensitivity Troponin I 6 ng/L Normal 0-51 [facility] Comment on above: Result Comment: High Sensitive Troponin I Reference Ranges: Female: 0-51 ng/L Male: 0-76 ng/L Testing performed on [employer] using a homogeneous sandwich chemiluminescent immunoassay based on [employer] technology. Performed By: #### G FR, MG, BMP #### [address] [address] [address] HEAD OR BRAIN W/O CONTRAS Ton 10-12-2024 CT HEAD OR BRAIN W/O CONTRAST ORIGINAL EXAMINATION: CT OF THE HEAD WITHOUT CONTRAST; CT OF THE FACE WITHOUT CONTRAST 10/12/2024 2:58 am; 10/12/2024 3:03 am TECHNIQUE: CT of the head was performed without the administration of intravenous contrast. Automated exposure control, iterative reconstruction, and/or weight based adjustment of the mA/kV was utilized to reduce the radiation dose to as low as reasonably achievable.; CT of the face was performed without the administration of intravenous contrast. Multiplanar reformatted images are provided for review. Automated exposure control, iterative reconstruction, and/or weight based adjustment of the mA/kV was utilized to reduce the radiation dose to as low as reasonably achievable. COMPARISON: CT head on 07/10/2023 HISTORY: ORDERING SYSTEM PROVIDED HISTORY: Reason for Exam: Patient tripped at home, fell, hit her nose, patient is on Eliquis INJURY FINDINGS: BRAIN/VENTRICLES: There is no acute intracranial hemorrhage, mass effect or midline shift. No abnormal extra-axial fluid collection. The soliz-white differentiation is maintained without evidence of an acute infarct. There is no evidence of hydrocephalus. Scattered parenchymal hypodensities in the cerebral white matter are nonspecific but statistically most consistent with mild chronic microvascular angiopathy. There is proportionate enlargement of the ventricular system and cortical sulci compatible with mild parenchymal volume loss. ORBITS: The visualized portion of the orbits demonstrate no acute abnormality. SINUSES: There is a complete opacification of left maxillary sinus. Several anterior ethmoid air cells are opacified. Trace of fluid is present in the left sphenoid sinus. No fracture of the maxilla or other paranasal sinuses is detected. SOFT TISSUES/SKULL: There is comminuted fracture of the nasal bone with mild impaction on the left side. Soft tissue swelling is present around the nasal bone with small amount of soft tissue gas associated with the nasal fracture. No additional facial fracture is present. The mandible is intact with normal alignment the temporomandibular joints. IMPRESSION: 1. No acute intracranial abnormality. 2. Comminuted mildly impacted nasal bone fracture. 3. Paranasal sinus disease. Interpreted by: Chip Crockett MD Preliminary Report By: Chip Crockett MD Electronically signed By Chip Crockett MD Dictated Date: 10/12/2024 3:04:39 AM Prelim Date: 10/12/2024 3:10:45 AM Sign Date: 10/12/2024 3:10:45 AM Ordering Provider: MISA Robertson [facility] CT MAXILLOFACIAL W/O CONTRAS Ton 10-12-2024 CT MAXILLOFACIAL W/O CONTRAST ORIGINAL EXAMINATION: CT OF THE HEAD WITHOUT CONTRAST; CT OF THE FACE WITHOUT CONTRAST 10/12/2024 2:58 am; 10/12/2024 3:03 am TECHNIQUE: CT of the head was performed without the administration of intravenous contrast. Automated exposure control, iterative reconstruction, and/or weight based adjustment of the mA/kV was utilized to reduce the radiation dose to as low as reasonably achievable.; CT of the face was performed without the administration of intravenous contrast. Multiplanar reformatted images are provided for review. Automated exposure control, iterative reconstruction, and/or weight based adjustment of the mA/kV was utilized to reduce the radiation dose to as low as reasonably achievable. COMPARISON: CT head on 07/10/2023 HISTORY: ORDERING SYSTEM PROVIDED HISTORY: Reason for Exam: Patient tripped at home, fell, hit her nose, patient is on Eliquis INJURY FINDINGS: BRAIN/VENTRICLES: There is no acute intracranial hemorrhage, mass effect or midline shift. No abnormal extra-axial fluid collection. The soliz-white differentiation is maintained without evidence of an acute infarct. There is no evidence of hydrocephalus. Scattered parenchymal hypodensities in the cerebral white matter are nonspecific but statistically most consistent with mild chronic microvascular angiopathy. There is proportionate enlargement of the ventricular system and cortical sulci compatible with mild parenchymal volume loss. ORBITS: The visualized portion of the orbits demonstrate no acute abnormality. SINUSES: There is a complete opacification of left maxillary sinus. Several anterior ethmoid air cells are opacified. Trace of fluid is present in the left sphenoid sinus. No fracture of the maxilla or other paranasal sinuses is detected. SOFT TISSUES/SKULL: There is comminuted fracture of the nasal bone with mild impaction on the left side. Soft tissue swelling is present around the nasal bone with small amount of soft tissue gas associated with the nasal fracture. No additional facial fracture is present. The mandible is intact with normal alignment the temporomandibular joints. IMPRESSION: 1. No acute intracranial abnormality. 2. Comminuted mildly impacted nasal bone fracture. 3. Paranasal sinus disease. Interpreted by: Chip Crockett MD Preliminary Report By: Chip Crockett MD Electronically signed By Chip Crockett MD Dictated Date: 10/12/2024 3:04:39 AM Prelim Date: 10/12/2024 3:10:45 AM Sign Date: 10/12/2024 3:10:45 AM Ordering Provider: MISA Robertson [facility] CT SPINE CERVICAL W/O KARINA Diana 10-12-2024 CT SPINE CERVICAL W/O CONTRAST ORIGINAL EXAMINATION: CT OF THE CERVICAL SPINE WITHOUT CONTRAST 10/12/2024 3:18 am TECHNIQUE: CT of the cervical spine was performed without the administration of intravenous contrast. Multiplanar reformatted images are provided for review. Automated exposure control, iterative reconstruction, and/or weight based adjustment of the mA/kV was utilized to reduce the radiation dose to as low as reasonably achievable. COMPARISON: CT cervical spine on 07/10/2023 HISTORY: ORDERING SYSTEM PROVIDED HISTORY: Reason for Exam: Patient tripped at home, fell, hit her nose, patient is on Eliquis pain FINDINGS: BONES/ALIGNMENT: Anterior fusion of C3 through C7 has been performed. Hardware is in satisfactory position with no sign of loosening. 3 mm of anterolisthesis of C7 on T1 is unchanged. There is no acute fracture or traumatic subluxation. The odontoid process is intact. DEGENERATIVE CHANGES: There is fusion of C3 through C7 vertebral bodies. Moderate degenerative facet arthropathy is present throughout the cervical spine bilaterally. There is no severe spinal stenosis. SOFT TISSUES: There is no prevertebral soft tissue swelling. IMPRESSION: 1. No acute abnormality of the cervical spine. 2. Status post anterior fusion of C3 through C7. 3. Stable grade 1 anterolisthesis of C7 on T1. Interpreted by: Chip Crockett MD Preliminary Report By: Chip Crockett MD Electronically signed By Chip Crockett MD Dictated Date: 10/12/2024 3:28:10 AM Prelim Date: 10/12/2024 3:31:14 AM Sign Date: 10/12/2024 3:31:14 AM Ordering Provider: MISA BROWNE [facility] XR CHEST 1 VIEWon 10-12-2024 XR CHEST 1 VIEW ORIGINAL EXAMINATION: ONE XRAY VIEW OF THE CHEST 10/12/2024 3:18 am COMPARISON: 07/10/2023 HISTORY: ORDERING SYSTEM PROVIDED HISTORY: Reason for Exam: Patient tripped at home, fell, hit her nose, patient is on Eliquis fall FINDINGS: Normal cardiomediastinal silhouette. No focal consolidation. Low lung volumes with prominent bronchovascular markings are presumably due to hypoventilation. No large pleural effusion or pneumothorax. No acute osseous findings. Degenerative changes in the spine and bilateral humeral head. IMPRESSION: No acute radiographic findings. Hypoventilatory changes. I have personally reviewed the images of this examination, and agree with the resident's findings and interpretation. Interpreted by: Chip Crockett MD Preliminary Report By: Giacomo May Electronically signed By Chip Crockett MD Dictated Date: 10/12/2024 3:28:48 AM Prelim Date: 10/12/2024 3:30:12 AM Sign Date: 10/12/2024 3:39:21 AM Ordering Provider: MISA BROWNE [facility] XR KNEE THREE VIEWS RIGHTon 10-12-2024 XR KNEE THREE VIEWS RIGHT ORIGINAL EXAMINATION: THREE XRAY VIEWS OF THE RIGHT KNEE 10/12/2024 3:18 am COMPARISON: 12/22/2022 HISTORY: ORDERING SYSTEM PROVIDED HISTORY: Reason for Exam: Patient tripped at home, fell, hit her nose, patient is on Eliquis fall FINDINGS: Partially visualized intramedullary femur nail with distal screw fixation. Hardware appears intact. No acute fracture or dislocation. No radiopaque foreign body. Anterior knee soft tissue swelling. Small anterior suprapatellar joint effusion. Moderate to severe tricompartmental osteoarthritis of the knee. Vascular calcifications. IMPRESSION: No acute fracture or dislocation. Small anterior suprapatellar joint effusion and mild anterior knee soft tissue swelling. Advanced arthritis. I have personally reviewed the images of this examination, and agree with the resident's findings and interpretation. Interpreted by: Chip Crockett MD Preliminary Report By: Giacomo May Electronically signed By Chip Crockett MD Dictated Date: 10/12/2024 3:30:21 AM Prelim Date: 10/12/2024 3:33:30 AM Sign Date: 10/12/2024 3:41:38 AM Ordering Provider: MISA BROWNE [facility] Culture, Blood (WB)on 2024 CUB Blood cultures x2, from two different sites No growth in 5 days. Normal [facility] Comment on above: Performed By: #### M 200.1000 #### [facility] [address] [place], [address] Urine Cultureon 10-05-2024 UR Copy of report sent to Infection Control Printer [id number] 10/05/24 0808 DEANN. Urine Culture RESULTS CALLED AND FAXED TO CORNELIO ROA 10/05/24 08 Karuna Lal. REPORT READ BACK BY SAME. Urine Culture Urine Culture ESBL Escherichia coli Oneill Count >100,000 MARKER ESBL producing OrganismA MARKER ESBL producing OrganismA Amikacin Islt LATISHA 2 S Ampicillin Islt LATISHA >=32 Ampicillin+Sulbac Islt LATISHA >=32 R Cefepime Islt LATISHA 2 S Eravacycline Islt LATISHA <=0.12 S cefTRIAXone Islt LATISHA >=64 R Ciprofloxacin Islt LATISHA >=4 R B-Lactamase Extended Susc Islt POS Gentamicin Islt LATISHA <=1 S Imipenem Islt LATISHA <=0.25 S levoFLOXacin Islt LATISHA >=8 R Meropenem Islt LATISHA <=0.25 S Nitrofurantoin Islt LATISHA <=16 S Pip+Tazo Islt LATISHA <=4 S Tobramycin Islt LATISHA <=1 S TMP SMX Islt LATISHA >=320 R Normal [facility] Comment on above: Performed By: #### M 100.2200 ####[facility] [address] [place], [address] 12 Lead EKGon 10-02-2024 12 Lead EKG [facility] Cardiovascular Services [address] [place] [address] 12 Lead EKG 10/02/24 1739 MR#: [id number] Acct: [id number] Name: JOSELINE ELLIS Rep #: [id number] : 1950 74 From: Jeremias Betancourt MD Attending Dr: Status: DEP ER Ordering Dr: Wale Barrera DO Date: 10/02/24 Location: ED Sex: F C Admitted: Test Reason : Blood Pressure : */* mmHG Vent. Rate : 96 BPM Atrial Rate : 242 BPM P-R Int : * ms QRS Dur : 74 ms QT Int : 340 ms P-R-T Axes : * 55 -20 degrees QTcB Int : 429 ms Atrial flutter with variable A-V block Nonspecific ST abnormality Abnormal ECG Confirmed by JEREMIAS BETANCOURT MD ([id number]), editorial writer AMALIA MEJIA ([id number]) on 10/03/2024 10:36:51 AM Referred By: Confirmed By: JEREMIAS BETANCOURT MD 10/03/24 1036 Date Ferris Serafin MD CC: Dr. Bernie Reagan MD; Dr. Wale Barrera, DO Signed Normal [facility] Absolute lymphocyte countOrd ered By: Wale Barrera on 10-02-2024 Lymphocytes Auto (Unsp spec) [#/Vol] 1.26 10*3/uL 0.83-4.51 [facility] Activated partial thrombopla stin time (aPTT) in platelet poor plasma by coagulation aOrdered By: Wale Barrera on 10-02-2024 aPTT Coag (PPP) [Time] 36.2 s 24.1-36.2 [facility] Anion gap in Serum or Plasma Ordered By: Wale Barrera on 10-02-2024 Anion gap [Moles/Vol] 14 mmol/L 5-15 [facility] Automated blood erythrocyte countOrdered By: Wale Barrera on 10-02-2024 RBC (Bld) [#/Vol] 4.51 10*6/uL Normal 4.2-5.4 [facility] Comment on above: Performed By: #### L 300.3900, L503.7505, L501.2450, L501.4021, L500.4050, L503.6005, L300.4310, L100.0100 ####[facility] [address] [facility]. [place], [place], [phone] Automated blood hematocrit ( percentage)Ordered By: Wale Barrera on 10-02-2024 Hematocrit (Bld) [Volume fraction] 39.0 % Normal 37-47 [facility] Comment on above: Performed By: #### L 300.3900, L503.7505, L501.2450, L501.4021, L500.4050, L503.6005, L300.4310, L100.0100 ####[facility] [address] [place], [place], [phone] Automated lymphocyte count a s percentage of total leukocytesOrdered By: Wlae Barrera on 10-02-2024 Lymphocytes/100 WBC Auto (Unsp spec) 17.1 % Low 19-41 [facility] BUN/creatinine ratioOrdered By: Wale Barrera on 10-02-2024 Urea nitrogen/Creatinine [Mass ratio] 20.2 mg/mg High 10-20 [facility] Basophil percentageOrdered B y: Wale Barrera on 10-02-2024 Basophils/100 WBC (Bld) 0.5 % Normal 0-1 [facility] Comment on above: Performed By: #### L 300.3900, L503.7505, L501.2450, L501.4021, L500.4050, L503.6005, L300.4310, L100.0100 ####[facility] [address] [place], [address] Bilirubin Test strip Ql (U)O rdered By: Wale Barrera on 10-02-2024 Bilirubin Ql (U) Negative Negative [facility] Bilirubin, totalOrdered By: Wale Barrera on 10-02-2024 Bilirubin [Mass/Vol] 0.36 mg/dL Normal 0.00-1.30 [facility] Comment on above: Performed By: #### L 300.3900, L503.7505, L501.2450, L501.4021, L500.4050, L503.6005, L300.4310, L100.0100 ####[facility] [address], [address] Blood cultureOrdered By: Shalini Barrera on 10-02-2024 Bacteria identified Cx Nom (Bld) No growth in 5 days. [facility] CBC W/Diff, Automatedon 09-14 Absolute Lymph 1.26 X10 3/uL Normal 0.83-4.51 [facility] Comment on above: Performed By: #### L 300.3900, L503.7505, L501.2450, L501.4021, L500.4050, L503.6005, L300.4310, L100.0100 ####[facility] [address] [place], [address] Absolute Neut 5.3 X10 3/uL Normal 2.0-7.7 [facility] Comment on above: Performed By: #### L 300.3900, L503.7505, L501.2450, L501.4021, L500.4050, L503.6005, L300.4310, L100.0100 ####[facility] [address] [place], [address] IG% 0.500 Normal 0.0-0.9 [facility] Comment on above: Result Comment: IG% - Immature Granulocytes (promyelocytes, myelocytes and metamyelocytes) > 1% indicates that a LEFT SHIFT is Present. Performed By: #### L 300.3900, L503.7505, L501.2450, L501.4021, L500.4050, L503.6005, L300.4310, L100.0100 ####[facility] [address] [place], [address] Lymphocytes/100 WBC (Bld) 17.1 % Low 19-41 [facility] Comment on above: Performed By: #### L 300.3900, L503.7505, L501.2450, L501.4021, L500.4050, L503.6005, L300.4310, L100.0100 ####[facility] [address] [place], [address] MCHC (RBC) [Mass/Vol] 32.3 g/dL Normal 32-36 [facility] Comment on above: Performed By: #### L 300.3900, L503.7505, L501.2450, L501.4021, L500.4050, L503.6005, L300.4310, L100.0100 ####[facility] [address] [place], [address] Nucleated RBC (Bld) [#/Vol] 0 10*3/uL Normal 0-5 [facility] Comment on above: Performed By: #### L 300.3900, L503.7505, L501.2450, L501.4021, L500.4050, L503.6005, L300.4310, L100.0100 ####[facility] [address] [place], [address] Platelet mean volume (Bld) [Entitic vol] 9.9 fL Normal 6.2-12.0 [facility] Comment on above: Performed By: #### L 300.3900, L503.7505, L501.2450, L501.4021, L500.4050, L503.6005, L300.4310, L100.0100 ####[facility] [address] [place], [address](196 RDW SD 47.0 fl High 35.1-43.9 [facility] Comment on above: Performed By: #### L 300.3900, L503.7505, L501.2450, L501.4021, L500.4050, L503.6005, L300.4310, L100.0100 ####[facility] [address] [place], [place], [phone] Carbon dioxide, total [Moles /volume] in Central venous bloodOrdered By: Wale Barrera on 10-02-2024 CO2 [Moles/Vol] 23.2 mmol/L Normal 21.0-32.0 [facility] Comment on above: Performed By: #### L 300.3900, L503.7505, L501.2450, L501.4021, L500.4050, L503.6005, L300.4310, L100.0100 ####[facility] [address] [place], [place], [phone] Chest PA and Lateralon 10-02 Chest PA and Lateral [facility] Imaging Services [address], [place] [phone] ([address] Chest PA and Lateral MR#: [id number] Acct: [id number] Name: JOSELINE ELLIS Rep #: [id number] : 1950 F 74 From: Caitlin Lynch MD PCP: Dr. Bernie Reagan MD Status: REG ER Study: Chest PA and Lateral Date of Exam: 10/02/24 Exam# [id number] Ordering Dr: Wale Barrera DO PROCEDURE: CHEST PA AND LATERAL 10/02/2024 REASON FOR EXAM: PALPITATIONS TECHNIQUE: Frontal and lateral views of the chest. COMPARISON: None. FINDINGS: Hardware: Cervical fusion. Heart: Heart size is mildly enlarged. Mediastinum: The mediastinal contour is unremarkable. Lungs: Pulmonary vasculature is congested and indistinct. Pleural septal lines are seen at the bases. Bones: RAD/Chest PA and Lateral IMPRESSION: Pulmonary vascular congestion. Mild cardiomegaly. Reading Location: [place] [address] CC: Dr. Bernie Reagan MD; Dr. Wale Barrera DO Child Caregiver Private Home: Signed Normal [facility] Chloride assayOrdered By: Karan Barrera on 10-02-2024 Chloride [Moles/Vol] 102 mmol/L Normal 98-108 [facility] Comment on above: Performed By: #### L 300.3900, L503.7505, L501.2450, L501.4021, L500.4050, L503.6005, L300.4310, L100.0100 ####[facility] [address] [place], [place], [phone] Comprehensive Metabolic Prof ilon 10-02-2024 ALK PHOS 66 U/L Normal 35-104 [facility] Comment on above: Performed By: #### L 300.3900, L503.7505, L501.2450, L501.4021, L500.4050, L503.6005, L300.4310, L100.0100 ####[facility] [address] [place], [address] AST [Catalytic activity/Vol] 31 U/L Normal <=31 [facility] Comment on above: Result Comment: Hemo lysis present, Results??could be affected. ?? Performed By: #### L 300.3900, L503.7505, L501.2450, L501.4021, L500.4050, L503.6005, L300.4310, L100.0100 ####[facility] [address] [place], [address] BUN/CRE 20.2 RATIO High 10-20 [facility] Comment on above: Performed By: #### L 300.3900, L503.7505, L501.2450, L501.4021, L500.4050, L503.6005, L300.4310, L100.0100 ####[facility] [address] [place], [place], [phone] ECRCL 34.86 ml/min Low 50-250 [facility] Comment on above: Performed By: #### L 300.3900, L503.7505, L501.2450, L501.4021, L500.4050, L503.6005, L300.4310, L100.0100 ####[facility] [address] [place], [address] GAP 14 Normal 5-15 [facility] Comment on above: Performed By: #### L 300.3900, L503.7505, L501.2450, L501.4021, L500.4050, L503.6005, L300.4310, L100.0100 ####[facility] [address] [place], [address] Potassium [Moles/Vol] 4.6 mmol/L Normal 3.3-5.1 [facility] Comment on above: Result Comment: Hemo lysis present, Results??could be affected. ?? Performed By: #### L 300.3900, L503.7505, L501.2450, L501.4021, L500.4050, L503.6005, L300.4310, L100.0100 ####[facility] [address] [place], [place], [phone] T PROT 8.0 g/dL Normal 5.9-8.4 [facility] Comment on above: Performed By: #### L 300.3900, L503.7505, L501.2450, L501.4021, L500.4050, L503.6005, L300.4310, L100.0100 ####[facility] [address] [place], [address] Emergency Department Summary on 10-02-2024 Emergency Department Summary [facility] Medical Records Department [address] [place] [address] Emergency Department Summary 10/02/24 MR#: [id number] Acct: [id number] Name: JOSELINE ELLIS Rep #: [id number] : 1950 74 From: Wale Barrera DO PCP: Dr. Bernie Reagan MD Status:DEP ER Location: ED HPI History of Present Illness Chief Complaint: Wound Check Informant: patient Onset/Context/Timing Onset: Days (5) Context: Gradual Onset Timing: Intermittent Quality: Intermittent confusion Location: Generalized Worsened by: Nothing Relieved by: Nothing Narrative Narrative: Patient presents with possible urinary tract infection that has been getting worse over the past 5 days. Patient states she was having some confusion and dark urine. Patient denies any dysuria or hematuria. Patient states she has been having urinary frequency but is also on a diuretic. Patient denies any fevers or chills. Patient states that at times she notes that her heart is racing. Patient denies any palpitations or feeling like her heart is racing. Patient denies any shortness of breath or cough. Patient states she has chronic leg wounds over her lower extremities bilaterally. Patient states she follows with the wound care center. Patient states she saw them today and had them dressed. Patient states that the physicians at the wound care center are expecting to have her legs healed by next week. She states that the wounds are continually getting better. 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 without evidence of necrosis Abscess of right middle finger MRSA infection Acute kidney injury Bacteremia Finger infection Health care maintenance Flu vaccine need Urinary incontinence, overflow Burn injury of skin of finger Post-menopausal Chronic cough Irregular heartbeat Pancreatitis Weakness Depression Anxiety Alcohol use Arthritis Walker as ambulation aid Anemia Back pain Dietary restriction Former smoker CPAP (continuous positive airway pressure) dependence History of edema History of echocardiogram History of stress test Cardiology follow-up encounter Osteoporosis Preoperative evaluation to rule out surgical contraindication Atrial fibrillation COVID-19 vaccine series completed Venous insufficiency Paroxysmal atrial fibrillation Kidney disease Anxiety and depression Vision problems CVA (cerebral vascular accident) Hyperlipidemia Breast lump History of UTI Essential hypertension Non-rheumatic mitral valve stenosis Nonrheumatic aortic (valve) stenosis Overactive bladder Osteoarthritis DKA (diabetic ketoacidoses) Abnormal mammogram of right breast Depression with anxiety Home Medications ???Medication ???Instructions ???Recorded ???Last Taken ???Type WOUND CARE #1 ea 10/06/22 Unknown Rx compress.stocking,kn ee,reg,lrg #2 ea 05/26/23 Unknown Rx multivitamin 1 tab PO DAILY SUPPLEMENT #90 tabs 10/26/23 Unknown Rx metoprolol tartrate 100 mg tablet 100 mg PO BID #60 tabs 12/02/23 U nknown Rx acetaminophen 325 mg capsule 650 mg PO TID PRN Pain 12/07/23 Un known History bismuth tribrom-petrolatum,w h 5 X #50 ea 01/25/24 Unknown Rx 9 bandage (Xeroform Petrolatum Dressing) Handicap Placard #1 ea 01/31/24 Unknown Rx glimepiride 2 mg tablet 2 mg PO DAILY dm #90 tabs 05/22/24 Unknown Rx amlodipine 10 mg tablet 10 mg PO DAILY BP #90 tabs 5 Unknown Rx apixaban 5 mg tablet 5 mg PO BID blood thinner #180 tab s 09/04/24 Unknown Rx ascorbic acid (vitamin C) 500 mg 500 mg PO DAILY vitamin #90 tabs 0 09/04/24 Unknown Rx tablet (Vitamin C) atorvastatin 10 mg tablet 10 mg PO DAILY #90 tabs 09/04/24 U nknown Rx cholecalciferol (vitamin D3) 50 50 mcg PO DAILY vitamin #90 caps 0 09/04/24 Unknown Rx mcg (2,000 unit) capsule ferrous sulfate 325 mg (65 mg 325 mg PO DAILY Supplement #90 tab s 09/04/24 Unknown Rx iron) tablet metformin 1,000 mg tablet 1,000 mg PO BID DM #180 tabs 09/04 Unknown Rx oxybutynin chloride 15 mg 15 mg PO QDAY bladder #90 tabs Unknown Rx tablet,extend (more content not included)... Normal [facility] Eosinophil percentageOrdered By: Wale Barrera on 10-02-2024 Eosinophils/100 WBC (Bld) 3.4 % Normal 0-5 [facility] Comment on above: Performed By: #### L 300.3900, L503.7505, L501.2450, L501.4021, L500.4050, L503.6005, L300.4310, L100.0100 ####[facility] [address] [place], [place], [phone] Erythrocyte distribution wid th ratioOrdered By: Wale Barrera on 10-02-2024 Erythrocyte distribution width (RBC) [Ratio] 14.9 % High 11.6-14.6 [facility] Comment on above: Performed By: #### L 300.3900, L503.7505, L501.2450, L501.4021, L500.4050, L503.6005, L300.4310, L100.0100 ####[facility] [address] [place], [place], [phone] Erythrocyte distribution wid th standard deviationOrdered By: Wale Barrera on 10-02-2024 Erythrocyte distribution width (RBC) [Ratio] 47.0 fl High 35.1-43.9 [facility] Glomerular filtration rate ( GFR) estimation/1.73 sq m using serum, plasma, or whole bOrdered By: Wale Barrera on 10-02-2024 GFR/1.73 sq M.predicted among non-blacks MDRD (S/P/Bld) [Vol rate/Area] 38 mL/min/{1.73_m2} Low >60 [facility] Comment on above: Result Comment: mL/m in/1.73m2 CKD-EPI Creatinine Equation (2020) Performed By: #### L 300.3900, L503.7505, L501.2450, L501.4021, L500.4050, L503.6005, L300.4310, L100.0100 ####[facility] [address] [facility] [address] [place], [place], [phone] Hemoglobin measurementOrdere d By: Wale Barrera on 10-02-2024 Hemoglobin (Bld) [Mass/Vol] 12.6 g/dL Normal 12.0-15.0 [facility] Comment on above: Performed By: #### L 300.3900, L503.7505, L501.2450, L501.4021, L500.4050, L503.6005, L300.4310, L100.0100 ####[facility] [address] [place], [place], [phone] Immature granulocytes/100 WB C Auto (Bld)Ordered By: Wale Barrera on 10-02-2024 Immature granulocytes/100 WBC (Bld) 0.500 % 0.0-0.9 [facility] Ketones Test strip Ql (U)Ord ered By: Wale Barrera on 10-02-2024 Ketones Ql (U) Negative Negative [facility] L499.0042on 10-02-2024 Trop T High Sen 13 ng/L Normal <=14 [facility] Comment on above: Performed By: #### L 499.0042 #### [facility] [address] [place], [address] L499.0043on 10-02-2024 Trop T High Sen Normal <=14 [facility] Comment on above: Result Comment: NASH ENT DISCHARGED Performed By: #### L 499.0043 #### [facility] [address] [place], [address] L501.4021on 10-02-2024 Trop T High Sen 15 ng/L High <=14 [facility] Comment on above: Performed By: #### L 300.3900, L503.7505, L501.2450, L501.4021, L500.4050, L503.6005, L300.4310, L100.0100 ####[facility] [address] [place], [address] L503.7505on 10-02-2024 Natriuretic peptide B (Bld) [Mass/Vol] 2409 pg/mL High <=900 [facility] Comment on above: Result Comment: Hear t Failure Unlikely: < 300 pg/mL Heart Failure Likely < 50 Years: > 450 pg/mL 50-75 Years: > 900 pg/mL >75 Years: > 1800 pg/mL Performed By: #### L 300.3900, L503.7505, L501.2450, L501.4021, L500.4050, L503.6005, L300.4310, L100.0100 ####[facility] [address] [place], [address] Lactic Acidon 10-02-2024 Lactate [Moles/Vol] 2.3 mmol/L Invalid Interpretation Code 0.0-2.0 [facility] Comment on above: Order Comment: Y Result Comment: Crit ical Result(s) Called EMILLER3 at: 1842 by: KATINA??Results read back by same. Performed By: #### L 300.3900, L503.7505, L501.2450, L501.4021, L500.4050, L503.6005, L300.4310, L100.0100 ####[facility] [address] [place], [place], [phone]) Lipaseon 10-02-2024 Lipase [Catalytic activity/Vol] 38 U/L Normal 13-75 [facility] Comment on above: Result Comment: Winston franco note: LIPASE revised reference range effective 22. New Lipase methodology. Expected to produce lower values than the previous assay method. NEW Reference Range: 13 - 75 U/L Performed By: #### L 300.3900, L503.7505, L501.2450, L501.4021, L500.4050, L503.6005, L300.4310, L100.0100 ####[facility] [address] [place], [address] MCV (mean corpuscular volume ) determinationOrdered By: Wale Barrera on 10-02-2024 MCV (RBC) [Entitic vol] 86.5 fL Normal 81-99 [facility] Comment on above: Performed By: #### L 300.3900, L503.7505, L501.2450, L501.4021, L500.4050, L503.6005, L300.4310, L100.0100 ####[facility] [address] [place], [place], [phone] Mean corpuscular hemoglobin (MCH) determinationOrdered By: Wale Barrera on 10-02-2024 MCH (RBC) [Entitic mass] 27.9 pg Normal 27.0-32.0 [facility] Comment on above: Performed By: #### L 300.3900, L503.7505, L501.2450, L501.4021, L500.4050, L503.6005, L300.4310, L100.0100 ####[facility] [address] [place], [address](238) Monocyte percentageOrdered B y: Wale Barrera on 10-02-2024 Monocytes/100 WBC (Bld) 6.2 % Normal 0-10 [facility] Comment on above: Performed By: #### L 300.3900, L503.7505, L501.2450, L501.4021, L500.4050, L503.6005, L300.4310, L100.0100 ####[facility] [address] [place], [place], [phone] Mucus LM Ql (Urine sed)Order ed By: Wale Barrera on 10-02-2024 Mucus Ql (Urine sed) 0 SEEN /hpf [facility] Natriuretic peptide.B prohor reggie N-Terminal [Mass/volume] in Serum or PlasmaOrdered By: Wale Barrera on 10-02-2024 Natriuretic peptide.B prohormone N-Terminal [Mass/Vol] 2409 pg/mL High <900 [facility] Neutrophil percentageOrdered By: Wale Barrera on 10-02-2024 Neutrophils/100 WBC (Bld) 72.3 % High 47-70 [facility] Comment on above: Performed By: #### L 300.3900, L503.7505, L501.2450, L501.4021, L500.4050, L503.6005, L300.4310, L100.0100 ####[facility] [address] [place], [place], [phone] Nitrite Test strip Ql (U)Ord ered By: Wale Barrera on 10-02-2024 Nitrite Ql (U) Positive High Negative [facility] No Panel InformationOrdered By: Wale Barrera on 10-02-2024 31 U/L <32 [facility] Partial Thromboplast Timeon 10-02-2024 aPTT Coag (Bld) [Time] 36.2 s Normal 24.1-36.2 [facility] Comment on above: Performed By: #### L 300.3900, L503.7505, L501.2450, L501.4021, L500.4050, L503.6005, L300.4310, L100.0100 ####[facility] [address] [place], [address] Platelet countOrdered By: Karan Barrera on 10-02-2024 Platelets (Bld) [#/Vol] 287 10*3/uL Normal 150-450 [facility] Comment on above: Performed By: #### L 300.3900, L503.7505, L501.2450, L501.4021, L500.4050, L503.6005, L300.4310, L100.0100 ####[facility] [address] [place], [address] Potassium measurement (mass/ volume)Ordered By: Wale Barrera on 10-02-2024 Potassium (Unsp spec) [Mass/Vol] 4.6 mmol/L 3.3-5.1 [facility] Protein Test strip Ql (U)Ord ered By: Wale Barrera on 10-02-2024 Protein Ql (U) 15 mg/dl High Negative [facility] Prothrombin Time w/INRon INR Coag (PPP) [Relative time] 1.6 {INR} Normal [facility] Comment on above: Performed By: #### L 300.3900, L503.7505, L501.2450, L501.4021, L500.4050, L503.6005, L300.4310, L100.0100 ####[facility] [address] [place], [place], [phone] Prothrombin timeOrdered By: Wale Barrera on 10-02-2024 PT Coag (PPP) [Time] 19.2 s High 11.7-14.9 [facility] Comment on above: Performed By: #### L 300.3900, L503.7505, L501.2450, L501.4021, L500.4050, L503.6005, L300.4310, L100.0100 ####[facility] [address] [place], [place], [phone] Serum creatinine measurement (mass/volume)Ordered By: Wale Barrera on 10-02-2024 Creatinine [Mass/Vol] 1.46 mg/dL High 0.70-1.20 [facility] Comment on above: Performed By: #### L 300.3900, L503.7505, L501.2450, L501.4021, L500.4050, L503.6005, L300.4310, L100.0100 ####[facility] [address] [facility]. [place], [place], [phone] Serum globulin measurementOr dered By: Wale Barrera on 10-02-2024 Globulin (S) [Mass/Vol] 3.8 g/dL Normal 2.2-4.2 [facility] Comment on above: Performed By: #### L 300.3900, L503.7505, L501.2450, L501.4021, L500.4050, L503.6005, L300.4310, L100.0100 ####[facility] [address] [facility] [place], [address] Serum glucose measurement (m ass/volume)Ordered By: Wale Barrera on 10-02-2024 Glucose [Mass/Vol] 127 mg/dL High 70-99 [facility] Comment on above: Performed By: #### L 300.3900, L503.7505, L501.2450, L501.4021, L500.4050, L503.6005, L300.4310, L100.0100 ####[facility] [address] [facility] [place], [place], [phone] Serum or plasma alanine bean otransferase (ALT) measurementOrdered By: Wale Barrera on 10-02-2024 ALT [Catalytic activity/Vol] 16 U/L Normal <=34 [facility] Comment on above: Performed By: #### L 300.3900, L503.7505, L501.2450, L501.4021, L500.4050, L503.6005, L300.4310, L100.0100 ####[facility] [address] [place], [place], [phone] Serum or plasma albumin keyona urement (mass/volume)Ordered By: Wale Barrera on 10-02-2024 Albumin [Mass/Vol] 4.2 g/dL Normal 3.4-4.8 [facility] Comment on above: Performed By: #### L 300.3900, L503.7505, L501.2450, L501.4021, L500.4050, L503.6005, L300.4310, L100.0100 ####[facility] [address] [place], [place], [phone] Serum or plasma albumin/glob ulin mass ratioOrdered By: Wale Barrera on 10-02-2024 Albumin/Globulin [Mass ratio] 1.1 {ratio} Normal 0.9-2.4 [facility] Comment on above: Performed By: #### L 300.3900, L503.7505, L501.2450, L501.4021, L500.4050, L503.6005, L300.4310, L100.0100 ####[facility] [address] [place], [place], [phone] Serum or plasma alkaline kyle sphatase measurementOrdered By: Wale Barrera on 10-02-2024 ALP [Catalytic activity/Vol] 66 U/L 35-104 [facility] Serum or plasma calcium keyona urement (mass/volume)Ordered By: Wale Barrera on 10-02-2024 Calcium [Mass/Vol] 10.1 mg/dL Normal 7.6-11.0 [facility] Comment on above: Performed By: #### L 300.3900, L503.7505, L501.2450, L501.4021, L500.4050, L503.6005, L300.4310, L100.0100 ####[facility] [address] [place], [place], [address] Serum or plasma urea nitroge n measurement (mass/volume)Ordered By: Wale Barrera on 10-02-2024 Urea nitrogen [Mass/Vol] 30 mg/dL High 4-19 [facility] Comment on above: Performed By: #### L 300.3900, L503.7505, L501.2450, L501.4021, L500.4050, L503.6005, L300.4310, L100.0100 ####[facility] [address] [place], [place], [phone] Sodium levelOrdered By: Wale Barrera on 10-02-2024 Sodium [Moles/Vol] 139 mmol/L Normal 133-145 [facility] Comment on above: Performed By: #### L 300.3900, L503.7505, L501.2450, L501.4021, L500.4050, L503.6005, L300.4310, L100.0100 ####[facility] [address] [place], [place], [phone] Squamous epithelial cells de tection in urine sediment by light microscopyOrdered By: Wale Barrera on 10-02-2024 Epithelial cells.squamous LM Ql (Urine sed) 5-10 SEEN /hpf 5-10 [facility] Total proteinOrdered By: Shalini Barrera on 10-02-2024 Protein [Mass/Vol] 8.0 g/dL 5.9-8.4 [facility] Troponin T.cardiac [Mass/vol ume] in Serum or Plasma by High sensitivity methodOrdered By: Wale Barrera on 10-02-2024 Troponin T.cardiac High sensitivity method [Mass/Vol] 13 ng/L <14 [facility] Troponin T.cardiac High sensitivity method [Mass/Vol] 15 ng/L High <14 [facility] Urinalysis, Completeon 10-02 BACTERIA 3+ /hpf Normal None Seen [facility] Comment on above: Order Comment: CLEAN CATCH Performed By: #### L 400.0001 #### [facility] [address] [place], [address] EPI,SQUAMOUS 5-10 SEEN Normal 5-10 [facility] Comment on above: Order Comment: CLEAN CATCH Performed By: #### L 400.0001 #### [facility] [address] [place], [address] WBC 5-10 SEEN Normal 0-5 [facility] Comment on above: Order Comment: CLEAN CATCH Performed By: #### L 400.0001 #### [facility] [address] [place], [address] Mucus Ql (Urine sed) 0 SEEN Normal [facility] Comment on above: Order Comment: CLEAN CATCH Performed By: #### L 400.0001 #### [facility] [address] [place], [address] RBC 0 SEEN Normal 0-5 [facility] Comment on above: Order Comment: CLEAN CATCH Performed By: #### L 400.0001 #### [facility] [address] [place], [address] Urine clarityOrdered By: Shalini Barrera on 10-02-2024 Clarity (U) Sl. Cloudy Clear [facility] Urine color determinationOrd ered By: Wale Barrera on 10-02-2024 Color (U) Yellow Yellow [facility] Urine cultureOrdered By: Shalini Barrera on 10-02-2024 Bacteria identified Cx Nom (U) ESBL Escherichia coli Abnormal [facility] Urine glucose detectionOrder ed By: Wale Barrera on 10-02-2024 Glucose Ql (U) Normal mg/dl Normal [facility] Urine leukocyte esterase det ection by dipstickOrdered By: Wale Barrera on 10-02-2024 Leukocyte esterase Test strip Ql (U) 100 /ul High Negative [facility] Urine pHOrdered By: Wale verduzco on 10-02-2024 pH (U) 6.0 [pH] 5.0 - 8.0 [facility] Urine sediment bacteria coun t by microscopy (number/high power field)Ordered By: Wale Barrera on 10-02-2024 Bacteria LM.HPF (Urine sed) [#/Area] 3 /[HPF] None Seen [facility] Urine specific gravity measu rementOrdered By: Wale Barrera on 10-02-2024 Specific gravity (U) [Rel density] 1.010 1.002-1.030 [facility] Urine urobilinogen measureme ntOrdered By: Wale Barrera on 10-02-2024 Urobilinogen Ql (U) Normal mg/dl Normal [facility] White blood cell (WBC) count Ordered By: Wale Barrera on 10-02-2024 WBC (Bld) [#/Vol] 7.4 10*3/uL Normal 4.4-11.0 [facility] Comment on above: Performed By: #### L 300.3900, L503.7505, L501.2450, L501.4021, L500.4050, L503.6005, L300.4310, L100.0100 ####[facility] [address] [facility] [place], [address] White blood cell countOrdere d By: Wale Barrera on 10-02-2024 White blood cell count 5-10 SEEN /hpf 0-5 [facility] Cardiology Visit Reporton Cardiology Visit Report [facility] [address] [place], [place] [address] OFFICE VISIT Date of Service: 09/24/24 MR#: [id number] Acct: [id number] Name: JOSELINE ELLIS Rep #: [id number] : 1950 Provider: JANESSA ramires Age/Sex: 74/F Location: [facility] [place] Status: Signed HPI HPI History of Present Illness Details: This is a 74-year-old white female who presents today for an outpatient cardiovascular follow-up for paroxysmal atrial fibrillation, valvular heart disease, hyperlipidemia, and hypertension. She was evaluated in cardiovascular consultation at [facility] on 10-03-18 for concerns of atrial fibrillation in the setting of hypertension, hyperlipidemia, diabetes mellitus, DKA, renal insufficiency, LEIGH ANN with CPAP therapy in which she follows with Dr. Raymond, and concerns of an acute CVA. He was seen at [facility] in September 2022 for paroxysmal atrial fibrillation and acute on chronic heart failure with preserved ejection fraction. She was also treated for community-acquired pneumonia. She denies chest, arm, jaw, or neck discomfort. She denies palpitations. She states bilateral lower extremity edema that improves with rest/elevation. She denies claudication. She denies shortness of breath with activity, shortness of breath at rest, orthopnea, or PND. She denies chronic cough. She denies significant, sudden weight gain. She denies lightheadedness, dizziness, near-syncope, or syncope. She denies blood in urine, blood in stool, or epistaxis. He denies fever with chills. She denies myalgia. She denies fatigue. Her exercise level has remained stable. 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: No Is patient in pain?: No Allergies fosinopril (From Monopril) Allergy (Unknown, Verified 09/24/24 13:37) Other pioglitazone Adverse Reaction (Verified 09/24/24 13:37) Other Medications ???Medication ???Instructions ???Recorded ???Confirmed ???Type WOUND CARE #1 ea 10/06/22 09/24/24 Rx compress.stocking,kn ee,reg,lrg #2 ea 05/26/23 09/24/24 Rx multivitamin 1 tab PO DAILY SUPPLEMENT #90 tabs 10/26/23 09/24/24 Rx metoprolol tartrate 100 mg tablet 100 mg PO BID #60 tabs 12/02/23 0 09/24/24 Rx acetaminophen 325 mg capsule 650 mg PO TID PRN Pain 12/07/23 History bismuth tribrom-petrolatum,w h 5 X #50 ea 01/25/24 09/24/24 Rx 9 bandage (Xeroform Petrolatum Dressing) Handicap Placard #1 ea 01/31/24 09/24/24 Rx glimepiride 2 mg tablet 2 mg PO DAILY dm #90 tabs 05/22/24 09/24/24 Rx amlodipine 10 mg tablet 10 mg PO DAILY BP #90 tabs 5 09/24/24 Rx apixaban 5 mg tablet 5 mg PO BID blood thinner #180 tab s 09/04/24 09/24/24 Rx ascorbic acid (vitamin C) 500 mg 500 mg PO DAILY vitamin #90 tabs 0 09/04/24 09/24/24 Rx tablet (Vitamin C) atorvastatin 10 mg tablet 10 mg PO DAILY #90 tabs 09/04/24 0 09/24/24 Rx cholecalciferol (vitamin D3) 50 50 mcg PO DAILY vitamin #90 caps 0 09/04/24 09/24/24 Rx mcg (2,000 unit) capsule ferrous sulfate 325 mg (65 mg 325 mg PO DAILY Supplement #90 tab s 09/04/24 09/24/24 Rx iron) tablet metformin 1,000 mg tablet 1,000 mg PO BID DM #180 tabs 09/0409/24/24 Rx oxybutynin chloride 15 mg 15 mg PO QDAY bladder #90 tabs 09/24/24 Rx tablet,extended release 24 hr sertraline 100 mg tablet (Zoloft) 100 mg PO DAILY anxiety #90 tabs 09/04/24 09/24/24 Rx amiodarone 200 mg tablet 200 mg PO BID 2 weeks #28 tabs 05/0909/24/24 Rx furosemide 40 mg tablet 40 mg PO DAILY #30 tabs 09/24/24 0 09/24/24 Rx Ejection fraction %: 60 Have you fallen in the past year?: Yes (Falls due to slipping out of bed 2-3 bed) PFSH Medical History Toe ulcer Diabetic ulcer of toe Arrhythmia Generalized erosion of teeth 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 Normal [facility] Internal Medicine Office Vis itoshi 09-19-2024 Internal Medicine Office Visit [facility] [address] [place] [address] [place] [address] OFFICE VISIT Date of Service: 09/19/24 MR#: [id number] Acct: [id number] Name: JOSELINE ELLIS Rep #: [id number] : 1950 Provider: TERA Barnett Age/Sex: 74/F Location: [facility] [place] Status: Signed Intake Vital Signs 08/20/24 10:37 08/28/24 11:18 09/19/24 13:13 09/19/24 13:44 Height 5 ft 1 in 5 ft 2 in 5 ft 2 in Weight: 179 lb BMI 32.7 BP 128/70 H Blood Pressure Location Lt brachial Position Sitting Respiration 16 Pulse 140 H 122 H Pulse Source Monitor Auscultation Temp 97.6 F L Temp Source Temporal Pulse Oximetry (%) 96 Oxygen Delivery Method room air Intake Visit Reasons: acute - fu on pinky toe/PROLIA $350 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 Complaint: 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 Accompanied by: Self Is patient in pain?: No Allergies fosinopril (From Monopril) Allergy (Unknown, Verified 09/19/24 13:08) Other pioglitazone Adverse Reaction (Verified 09/19/24 13:08) Other Medications ???Medication ???Instructions ???Recorded ???Confirmed ???Type WOUND CARE #1 ea 10/06/22 09/19/24 Rx compress.stocking,kn ee,reg,lrg #2 ea 05/26/23 09/19/24 Rx multivitamin 1 tab PO DAILY SUPPLEMENT #90 tabs 10/26/23 09/19/24 Rx metoprolol tartrate 100 mg tablet 100 mg PO BID #60 tabs 12/02/23 0 09/19/24 Rx acetaminophen 325 mg capsule 650 mg PO TID PRN Pain 12/07/23 History bacitracin zinc 500 unit/gram 1 applic topical TID #28.4 grams 0 12/13/23 09/19/24 Rx topical ointment bismuth tribrom-petrolatum,w h 5 X #50 ea 01/25/24 09/19/24 Rx 9 bandage (Xeroform Petrolatum Dressing) Handicap Placard #1 ea 01/31/24 09/19/24 Rx glimepiride 2 mg tablet 2 mg PO DAILY dm #90 tabs 05/22/24 09/19/24 Rx furosemide 20 mg tablet 20 mg PO DAILY #90 tabs 08/10/24 0 09/19/24 Rx doxycycline monohydrate 100 mg 100 mg PO BID #14 caps 08/20/24 Rx capsule amlodipine 10 mg tablet 10 mg PO DAILY BP #90 tabs 5 09/19/24 Rx apixaban 5 mg tablet 5 mg PO BID blood thinner #180 tab s 09/04/24 09/19/24 Rx ascorbic acid (vitamin C) 500 mg 500 mg PO DAILY vitamin #90 tabs 0 09/04/24 09/19/24 Rx tablet (Vitamin C) atorvastatin 10 mg tablet 10 mg PO DAILY #90 tabs 09/04/24 0 09/19/24 Rx cholecalciferol (vitamin D3) 50 50 mcg PO DAILY vitamin #90 caps 0 09/04/24 09/19/24 Rx mcg (2,000 unit) capsule ferrous sulfate 325 mg (65 mg 325 mg PO DAILY Supplement #90 tab s 09/04/24 09/19/24 Rx iron) tablet metformin 1,000 mg tablet 1,000 mg PO BID DM #180 tabs 09/0409/19/24 Rx oxybutynin chloride 15 mg 15 mg PO QDAY bladder #90 tabs 09/19/24 Rx tablet,extended release 24 hr sertraline 100 mg tablet (Zoloft) 100 mg PO DAILY anxiety #90 tabs 09/04/24 09/19/24 Rx Have you fallen in the past year?: No 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 History of cerebrovascular accident Chronic anticoagulation Bilateral leg ulcer Intertrigo Acute on chronic heart failure CKD (chronic kidney disease) Paroxysmal A-fib Diabetes mellitus Hypertension Elevated brain natriuretic peptide (BNP) level Stage 3b chronic kidney disease (CKD) Subtherapeutic international normalized ratio (INR) Chronic back pain Tachycardia Paroxysmal atrial fibrillation with RVR Atrial fib/flutter, transient Osteomyelitis of finger of right hand 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 without evidence of necrosis Abscess of right middle finger MRSA infection Acute kidney injury Bacteremia Finger infection Health care maintenance Flu vaccine need Urinary incontinence, overflow Burn injury of skin of finger Post-menopausal Chronic cough Irregular heartbeat Pancreatitis Weakness Depression Anxiety Alcohol use Arthritis Walker as ambulation aid Anemia Back pain Dietary restriction Former smoker CPAP (continuous positive airway pressure) dependence History of edema History of echocardiogram History of stress test Cardiology follow-up encounter Osteoporosis Preoperative evaluation to rule out surgical contraindication Atrial fibrillation COVID-19 vaccine series completed Venous insufficiency Paroxysmal atrial fibrillation Kidney disease Anxiety and depression Vision problems CVA (cerebral vascular accident) Hyperlipidemia Breast lump History of UTI Essential hypertension Non-rheumatic mitral valve stenosis Nonrheumatic aortic (valve) stenosis Overactive bladder Osteoarthritis DKA (diabetic ketoacidoses) Abnormal mammogram of right breast Depression with anxiety Surgical History ( (more content not included)... Normal [facility] Wound Ctr History AND Physic gilberto 08-28-2024 Wound Ctr History & Physical [facility] [address] [place] [id number] H P Exam - Wound Care 08/28/24 1139 MR#: [id number] Acct: [id number] Name: JOSELINE ELLIS Rep #: [id number] : 1950 74 From: Fatemeh Espinosa DPM PCP: Dr. Bernie Reagan MD Status:REG RCR Location: History of Present Illness Date of Service: 08/28/24 Chief Complaint: Multiple, small superficial ulcerations in the lower extremities bilaterally History of Wound: This 72-year-old white female who presented with bilateral lower extremity ulcerations. They are small in size, but multiple in number. They have been present for a lengthy period of time. 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 The patient has been using silver cell and Alberto wraps. The patient also experiences swelling and edema in her lower extremities. She sleeps in a bed at night. The patient has recently been hospitalized at [facility] following amputation of her distal right third finger, following which she developed a MRSA infection/osteomyeli tis with positive MRSA blood cultures. She has been under the care of Dr. Kiran Wolff, plastic surgeon, in this regard. Her recent MRSA infection is said to have been her first and only history of MRSA infections. She underwent surgery on 07/12/22 for surgical preparation right long finger amputation stump ulcer with incision and drainage and excisional debridement MRSA abscess and partial ostectomy middle phalanx for osteomyelitis. Operative tissue cultures positive for Enterobacter cloacae complex and MRSA. Operative bone cultures positive for MRSA and MRSE. She was discharged home on 07/15/22 with a PICC line and IV Vancomycin and oral Cipro. She was seen by ID while hospitalized and was to follow up ID post-discharge. Progress of Wound: Patient presents with left lower extremity leg ulcerations in setting of pitting edema and right foot ulcerations in setting of diabetic neuropathy patient denies constitutional symptoms or pain at current. Patient has no other complaints. 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 History of cerebrovascular accident Chronic anticoagulation Bilateral leg ulcer Intertrigo Acute on chronic heart failure CKD (chronic kidney disease) Paroxysmal A-fib Diabetes mellitus Hypertension Elevated brain natriuretic peptide (BNP) level Stage 3b chronic kidney disease (CKD) Subtherapeutic international normalized ratio (INR) Chronic back pain Tachycardia Paroxysmal atrial fibrillation with RVR Atrial fib/flutter, transient Osteomyelitis of finger of right hand 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 without evidence of necrosis Abscess of right middle finger MRSA infection Acute kidney injury Bacteremia Finger infection Health care maintenance Flu vaccine need Urinary incontinence, overflow Burn injury of skin of finger Post-menopausal Chronic cough Irregular heartbeat Pancreatitis Weakness Depression Anxiety Alcohol use Arthritis Walker as ambulation aid Anemia Back pain Dietary restriction Former smoker CPAP (continuous positive airway pressure) dependence History of edema History of echocardiogram History of stress test Cardiology follow-up encounter Osteoporosis Preoperative evaluation to rule out surgical contraindication Atrial fibrillation COVID-19 vaccine series completed Venous insufficiency Paroxysmal atrial fibrillation Kidney disease Anxiety and depression Vision problems CVA (cerebral vascular accident) Hyperlipidemia Breast lump History of UTI Essential hypertension Non-rheumatic mitral valve stenosis Nonrheumatic aortic (valve) stenosis Overactive bladder Osteoarthritis DKA (diabetic ketoacidoses) Abnormal mammogram of right breast Depression with anxiety Home Medications ???Medication ???Instructions ???Recorded ???Last Taken ???Type WOUND CARE #1 ea 10/06/22 Unknown Rx compress.stocking,kn ee,reg,lrg #2 ea 05/26/23 Unknown Rx apixaban 5 mg tablet 5 mg PO BID blood thinner #180 tab s 10/26/23 Unknown Rx ascorbic acid (vitamin C) 500 mg 500 mg PO DAILY vitamin #90 tabs 0 10/26/23 Unknown Rx tablet (Vitamin C) cholecalciferol (vitamin D3) 50 50 mcg PO DAILY vitamin #90 caps 0 10/26/23 Unknown Rx mcg (2,000 unit) capsule ferrous sulfate 325 mg (65 mg 325 mg PO DAILY Supplement #90 tab s 10/26/23 Unknown Rx iron) tablet multivitamin 1 tab PO DAILY SUPPLEMENT #90 tabs 10/26/23 Unknown Rx sertraline 100 mg tablet (Zoloft) 100 mg PO DAILY anxiety #90 tabs 10/26/23 Unknown Rx metoprolol tartrate 100 mg tablet 100 mg PO BID #60 tabs 12/02/23 U n (more content not included)... Normal [facility] ALP [Catalytic activity/Vol] Ordered By: Bernie Reagan on 08-20-2024 Serum or plasma alkaline phosphatase measurement 75 U/L 35-104 [facility] ALT [Catalytic activity/Vol] Ordered By: Bernie Reagan on 08-20-2024 Serum or plasma alanine aminotransferase (ALT) measurement 11 U/L <35 [facility] Absolute lymphocyte countOrd ered By: Bernie Reagan on 08-20-2024 Lymphocytes Auto (Unsp spec) [#/Vol] 1.02 10*3/uL 0.83-4.51 [facility] Absolute neutrophil countOrd ered By: Bernie Reagan on 08-20-2024 Absolute neutrophil count 6.7 X10^3/uL 2.0-7.7 [facility] Albumin [Mass/Vol]Ordered By : [facility] on 08-20-2024 Serum or plasma albumin measurement (mass/volume) 4.0 g/dL 3.4-4.8 [facility] Albumin/Globulin [Mass ratio ]Ordered By: [facility] Reagan on 08-20-2024 Serum or plasma albumin/globulin mass ratio 1.0 RATIO 0.9-2.4 [facility] Anion gap [Moles/Vol]Ordered By: [facility] Reagan on 08-20-2024 Anion gap in Serum or Plasma 11 - [facility] Anion gap in Serum or Plasma Ordered By: [facility] Garethderrick on 08-20-2024 Anion gap [Moles/Vol] 11 mmol/L 09-27 [facility] Automated lymphocyte count a s percentage of total leukocytesOrdered By: amandamilton freewaterestephanie Reagan on 08-20-2024 Lymphocytes/100 WBC Auto (Unsp spec) 11.8 % Low 19-41 [facility] BUN/creatinine ratioOrdered By: [facility] Servinderrick on 08-20-2024 Urea nitrogen/Creatinine [Mass ratio] 24.3 mg/mg High 10-20 [facility] BUN/creatinine ratio 24.3 RATIO High 10-20 [facility] Basophil percentageOrdered B y: Bernie Reagan on 08-20-2024 Basophils/100 WBC (Bld) 0.7 % 0-1 [facility] Basophil percentage 0.7 % 0-1 [facility] Bilirubin, totalOrdered By: ambar Reagan on 08-20-2024 Bilirubin [Mass/Vol] 0.51 mg/dL 0.00-1.30 [facility] Bilirubin, total 0.51 mg/dL 0.00-1.30 [facility] CBC W/Diff, Automatedon Absolute Lymph 1.02 X10 3/uL Normal 0.83-4.51 [facility] Comment on above: Performed By: #### L 100.0100, L506.1001, L500.4050, L101.9900, L501.6710 ####[facility] [address] [place], [address] Absolute Neut 6.7 X10 3/uL Normal 2.0-7.7 [facility] Comment on above: Performed By: #### L 100.0100, L506.1001, L500.4050, L101.9900, L501.6710 ####[facility] [address] [place], [address] Basophils/100 WBC (Bld) 0.7 % Normal 0-1 [facility] Comment on above: Performed By: #### L 100.0100, L506.1001, L500.4050, L101.9900, L501.6710 ####[facility] [address] [place], [address] Eosinophils/100 WBC (Bld) 4.4 % Normal 0-5 [facility] Comment on above: Performed By: #### L 100.0100, L506.1001, L500.4050, L101.9900, L501.6710 ####[facility] [address] [place], [address] Erythrocyte distribution width (RBC) [Ratio] 14.8 % High 11.6-14.6 [facility] Comment on above: Performed By: #### L 100.0100, L506.1001, L500.4050, L101.9900, L501.6710 ####[facility] [address] [place], [address] Hematocrit (Bld) [Volume fraction] 33.8 % Low 37-47 [facility] Comment on above: Performed By: #### L 100.0100, L506.1001, L500.4050, L101.9900, L501.6710 ####[facility] [address] [place], [address] Hemoglobin (Bld) [Mass/Vol] 10.6 g/dL Low 12.0-15.0 [facility] Comment on above: Performed By: #### L 100.0100, L506.1001, L500.4050, L101.9900, L501.6710 ####[facility] [address] [place], [address] IG% 0.600 Normal 0.0-0.9 [facility] Comment on above: Result Comment: IG% - Immature Granulocytes (promyelocytes, myelocytes and metamyelocytes) > 1% indicates that a LEFT SHIFT is Present. Performed By: #### L 100.0100, L506.1001, L500.4050, L101.9900, L501.6710 ####[facility] [address] [place], [address] Lymphocytes/100 WBC (Bld) 11.8 % Low 19-41 [facility] Comment on above: Performed By: #### L 100.0100, L506.1001, L500.4050, L101.9900, L501.6710 ####[facility] [address] [place], [address] MCH (RBC) [Entitic mass] 28.0 pg Normal 27.0-32.0 [facility] Comment on above: Performed By: #### L 100.0100, L506.1001, L500.4050, L101.9900, L501.6710 ####[facility] [address] [place], [address] MCHC (RBC) [Mass/Vol] 31.4 g/dL Low 32-36 [facility] Comment on above: Performed By: #### L 100.0100, L506.1001, L500.4050, L101.9900, L501.6710 ####[facility] [address] [place], [address] MCV (RBC) [Entitic vol] 89.2 fL Normal 81-99 [facility] Comment on above: Performed By: #### L 100.0100, L506.1001, L500.4050, L101.9900, L501.6710 ####[facility] [address] [place], [address] Monocytes/100 WBC (Bld) 5.7 % Normal 0-10 [facility] Comment on above: Performed By: #### L 100.0100, L506.1001, L500.4050, L101.9900, L501.6710 ####[facility] [address] [place], [address] Neutrophils/100 WBC (Bld) 76.8 % High 47-70 [facility] Comment on above: Performed By: #### L 100.0100, L506.1001, L500.4050, L101.9900, L501.6710 ####[facility] [address] [place], [address] Nucleated RBC (Bld) [#/Vol] 0 10*3/uL Normal 0-5 [facility] Comment on above: Performed By: #### L 100.0100, L506.1001, L500.4050, L101.9900, L501.6710 ####[facility] [address] [place], [address] Platelet mean volume (Bld) [Entitic vol] 10.2 fL Normal 6.2-12.0 [facility] Comment on above: Performed By: #### L 100.0100, L506.1001, L500.4050, L101.9900, L501.6710 ####[facility] [address] [place], [address] Platelets (Bld) [#/Vol] 280 10*3/uL Normal 150-450 [facility] Comment on above: Performed By: #### L 100.0100, L506.1001, L500.4050, L101.9900, L501.6710 ####[facility] [address] [place], [address] RBC (Bld) [#/Vol] 3.79 10*6/uL Low 4.2-5.4 [facility] Comment on above: Performed By: #### L 100.0100, L506.1001, L500.4050, L101.9900, L501.6710 ####[facility] [address] [place], [address] RDW SD 48.4 fl High 35.1-43.9 [facility] Comment on above: Performed By: #### L 100.0100, L506.1001, L500.4050, L101.9900, L501.6710 ####[facility] [address] [place], [address] WBC (Bld) [#/Vol] 8.7 10*3/uL Normal 4.4-11.0 [facility] Comment on above: Performed By: #### L 100.0100, L506.1001, L500.4050, L101.9900, L501.6710 ####[facility] [address] [place], [address] CRPon 08-20-2024 C-REACTIVE PROT 15.10 mg/L High 0.0-3.0 [facility] Comment on above: Performed By: #### L 100.0100, L506.1001, L500.4050, L101.9900, L501.6710 ####[facility] [address] [place], [address] CRP [Mass/Vol]Ordered By: Alex Reagan on 08-20-2024 Serum or plasma C reactive protein measurement (mass/volume) 15.10 mg/L High 0.0-3.0 [facility] Calcium [Mass/Vol]Ordered By : Bernie Reagan on 08-20-2024 Serum or plasma calcium measurement (mass/volume) 9.8 mg/dL 7.6-11.0 [facility] Carbon dioxide, total [Moles /volume] in Central venous bloodOrdered By: Bernie Reagan on 08-20-2024 CO2 [Moles/Vol] 22.9 mmol/L 21.0-32.0 [facility] Carbon dioxide, total [Moles/volume] in Central venous blood 22.9 mmol/L 21.0-32.0 [facility] Chloride assayOrdered By: Alex Reagan on 08-20-2024 Chloride [Moles/Vol] 106 mmol/L 98-108 [facility] Chloride assay 106 mmol/L 98-108 [facility] Comprehensive Metabolic Prof ilon 08-20-2024 Albumin [Mass/Vol] 4.0 g/dL Normal 3.4-4.8 [facility] Comment on above: Performed By: #### L 100.0100, L506.1001, L500.4050, L101.9900, L501.6710 ####[facility] [address] [place], [address] Albumin/Globulin [Mass ratio] 1.0 {ratio} Normal 0.9-2.4 [facility] Comment on above: Performed By: #### L 100.0100, L506.1001, L500.4050, L101.9900, L501.6710 ####[facility] [address] [place], [address] ALK PHOS 75 U/L Normal 35-104 [facility] Comment on above: Performed By: #### L 100.0100, L506.1001, L500.4050, L101.9900, L501.6710 ####[facility] [address] [place], [address] ALT [Catalytic activity/Vol] 11 U/L Normal <=34 [facility] Comment on above: Performed By: #### L 100.0100, L506.1001, L500.4050, L101.9900, L501.6710 ####[facility] [address] [place], [address] AST [Catalytic activity/Vol] 20 U/L Normal <=31 [facility] Comment on above: Performed By: #### L 100.0100, L506.1001, L500.4050, L101.9900, L501.6710 ####[facility] [address] [place], [address] Bilirubin [Mass/Vol] 0.51 mg/dL Normal 0.00-1.30 [facility] Comment on above: Performed By: #### L 100.0100, L506.1001, L500.4050, L101.9900, L501.6710 ####[facility] [address] [place], [address] BUN/CRE 24.3 RATIO High 10-20 [facility] Comment on above: Performed By: #### L 100.0100, L506.1001, L500.4050, L101.9900, L501.6710 ####[facility] [address] [place], [address] Calcium [Mass/Vol] 9.8 mg/dL Normal 7.6-11.0 [facility] Comment on above: Performed By: #### L 100.0100, L506.1001, L500.4050, L101.9900, L501.6710 ####[facility] [address] [place], [address] Chloride [Moles/Vol] 106 mmol/L Normal 98-108 [facility] Comment on above: Performed By: #### L 100.0100, L506.1001, L500.4050, L101.9900, L501.6710 ####[facility] [address] [place], [address] CO2 [Moles/Vol] 22.9 mmol/L Normal 21.0-32.0 [facility] Comment on above: Performed By: #### L 100.0100, L506.1001, L500.4050, L101.9900, L501.6710 ####[facility] [address] [place], [address] Creatinine [Mass/Vol] 1.14 mg/dL Normal 0.70-1.20 [facility] Comment on above: Performed By: #### L 100.0100, L506.1001, L500.4050, L101.9900, L501.6710 ####[facility] [address] [place], [address] GAP 11 Normal 5-15 [facility] Comment on above: Performed By: #### L 100.0100, L506.1001, L500.4050, L101.9900, L501.6710 ####[facility] [address] [place], [address] GFR/1.73 sq M.predicted among non-blacks MDRD (S/P/Bld) [Vol rate/Area] 51 mL/min/{1.73_m2} Low >60 [facility] Comment on above: Result Comment: mL/m in/1.73m2 CKD-EPI Creatinine Equation (2020) Performed By: #### L 100.0100, L506.1001, L500.4050, L101.9900, L501.6710 ####[facility] [address] [place], [address] Globulin (S) [Mass/Vol] 3.9 g/dL Normal 2.2-4.2 [facility] Comment on above: Performed By: #### L 100.0100, L506.1001, L500.4050, L101.9900, L501.6710 ####[facility] [address] [place], [address] Glucose [Mass/Vol] 115 mg/dL High 70-99 [facility] Comment on above: Performed By: #### L 100.0100, L506.1001, L500.4050, L101.9900, L501.6710 ####[facility] [address] [place], [address] Potassium [Moles/Vol] 4.9 mmol/L Normal 3.3-5.1 [facility] Comment on above: Performed By: #### L 100.0100, L506.1001, L500.4050, L101.9900, L501.6710 ####[facility] [address] [place], [address] Sodium [Moles/Vol] 140 mmol/L Normal 133-145 [facility] Comment on above: Performed By: #### L 100.0100, L506.1001, L500.4050, L101.9900, L501.6710 ####[facility] [address] [place], [address] T PROT 7.8 g/dL Normal 5.9-8.4 [facility] Comment on above: Performed By: #### L 100.0100, L506.1001, L500.4050, L101.9900, L501.6710 ####[facility] [address] [place], [address] Urea nitrogen [Mass/Vol] 28 mg/dL High 4-19 [facility] Comment on above: Performed By: #### L 100.0100, L506.1001, L500.4050, L101.9900, L501.6710 ####[facility] [address] [place], [address] Creatinine [Mass/Vol]Ordered By: Bernie Reagan on 08-20-2024 Serum creatinine measurement (mass/volume) 1.14 mg/dL 0.70-1.20 [facility] ESR (Bld) [Velocity]Ordered By: ambar Reagan on 08-20-2024 Erythrocyte sedimentation rate 43 mm/hr High 0-30 [facility] Eosinophil percentageOrdered By: amandamilton freewaterestephanie Reagan on 08-20-2024 Eosinophils/100 WBC (Bld) 4.4 % 0-5 [facility] Eosinophil percentage 4.4 % 0-5 [facility] Erythrocyte Sed Rateon 08-20 SED RATE 43 mm/hr High 0-30 [facility] Comment on above: Performed By: #### L 100.0100, L506.1001, L500.4050, L101.9900, L501.6710 ####[facility] [address] [place], [address] Erythrocyte distribution wid th (RBC) [Ratio]Ordered By: amandamilton freewaterestephanie Reagan on 08-20-2024 Erythrocyte distribution width ratio 14.8 % High 11.6-14.6 [facility] Erythrocyte distribution width standard deviation 48.4 fl High 35.1-43.9 [facility] Erythrocyte distribution wid th ratioOrdered By: [facility] Reagan on 08-20-2024 Erythrocyte distribution width (RBC) [Ratio] 14.8 % High 11.6-14.6 [facility] Erythrocyte distribution wid th standard deviationOrdered By: [facility] Reagan on 08-20-2024 Erythrocyte distribution width (RBC) [Ratio] 48.4 fl High 35.1-43.9 [facility] Erythrocyte sedimentation ra teOrdered By: Bernie Reagan on 08-20-2024 ESR (Bld) [Velocity] 43 mm/h High 0-30 [facility] GFR/1.73 sq M.predicted ankit g non-blacks MDRD (S/P/Bld) [Vol rate/Area]Ordered By: Bernie Reagan on 08-20-2024 Glomerular filtration rate (GFR) estimation/1.73 sq m using serum, plasma, or whole b 51 Low >60 [facility] Glomerular filtration rate ( GFR) estimation/1.73 sq m using serum, plasma, or whole bOrdered By: Bernie Reagan on 08-20-2024 GFR/1.73 sq M.predicted among non-blacks MDRD (S/P/Bld) [Vol rate/Area] 51 mL/min/{1.73_m2} Low >60 [facility] Glucose [Mass/Vol]Ordered By : Bernie Reagan on 08-20-2024 Serum glucose measurement (mass/volume) 115 mg/dL High 70-99 [facility] Hematocrit Auto (Bld) [Volum e fraction]Ordered By: Bernie Reagan on 08-20-2024 Hematocrit (Bld) [Volume fraction] 33.8 % Low 37-47 [facility] Automated blood hematocrit (percentage) 33.8 % Low 37-47 [facility] Hemoglobin measurementOrdere d By: Bernie Reagan on 08-20-2024 Hemoglobin (Bld) [Mass/Vol] 10.6 g/dL Low 12.0-15.0 [facility] Hemoglobin measurement 10.6 g/dL Low 12.0-15.0 [facility] Immature granulocytes/100 WB C Auto (Bld)Ordered By: Bernie Reagan on 08-20-2024 Immature granulocytes/100 WBC (Bld) 0.600 % 0.0-0.9 [facility] Automated immature granulocyte percentage 0.600 % 0.0-0.9 [facility] Internal Medicine Office Vis iton 08-20-2024 Internal Medicine Office Visit [facility] [place], [place] [address] OFFICE VISIT Date of Service: 08/20/24 MR#: [id number] Acct: [id number] Name: JOSELINE ELLIS Rep #: [id number] : 1950 Provider: Dr. Bernie benjamin MD Age/Sex: 74/F Location: [facility] [place] Status: Signed Intake Vital Signs 05/21/24 13:50 08/20/24 10:37 Height 5 ft 1 in 5 ft 1 in Weight: 179 lb BMI 33.8 BP 136/78 H Blood Pressure Location Lt brachial Position Sitting Respiration 20 H Pulse 65 Pulse Source Monitor Temp 97.8 F Temp Source Temporal Pulse Oximetry (%) 96 Oxygen Delivery Method room air Intake Visit Reasons: 3 M FU Chief Complaint: 3 M FU Is patient in pain?: No Allergies fosinopril (From Monopril) Allergy (Unknown, Verified 05/21/24 13:47) Other pioglitazone Adverse Reaction (Verified 05/21/24 13:47) Other Medications ???Medication ???Instructions ???Recorded ???Confirmed ???Type WOUND CARE #1 ea 10/06/22 08/20/24 Rx compress.stocking,kn ee,reg,lrg #2 ea 05/26/23 08/20/24 Rx apixaban 5 mg tablet 5 mg PO BID blood thinner #180 tab s 10/26/23 08/20/24 Rx ascorbic acid (vitamin C) 500 mg 500 mg PO DAILY vitamin #90 tabs 0 10/26/23 08/20/24 Rx tablet (Vitamin C) cholecalciferol (vitamin D3) 50 50 mcg PO DAILY vitamin #90 caps 0 10/26/23 08/20/24 Rx mcg (2,000 unit) capsule ferrous sulfate 325 mg (65 mg 325 mg PO DAILY Supplement #90 tab s 10/26/23 08/20/24 Rx iron) tablet multivitamin 1 tab PO DAILY SUPPLEMENT #90 tabs 10/26/23 08/20/24 Rx sertraline 100 mg tablet (Zoloft) 100 mg PO DAILY anxiety #90 tabs 10/26/23 08/20/24 Rx metoprolol tartrate 100 mg tablet 100 mg PO BID #60 tabs 12/02/23 0 08/20/24 Rx acetaminophen 325 mg capsule 650 mg PO TID PRN Pain 12/07/23 History bacitracin zinc 500 unit/gram 1 applic topical TID #28.4 grams 0 12/13/23 08/20/24 Rx topical ointment bismuth tribrom-petrolatum,w h 5 X #50 ea 01/25/24 08/20/24 Rx 9 bandage (Xeroform Petrolatum Dressing) Handicap Placard #1 ea 01/31/24 08/20/24 Rx glimepiride 2 mg tablet 2 mg PO DAILY dm #90 tabs 05/22/24 08/20/24 Rx amlodipine 10 mg tablet 10 mg PO DAILY BP #90 tabs 5 08/20/24 Rx atorvastatin 10 mg tablet 10 mg PO DAILY #90 tabs 06/21/24 0 08/20/24 Rx metformin 1,000 mg tablet 1,000 mg PO BID DM #180 tabs 06/2108/20/24 Rx oxybutynin chloride 15 mg 15 mg PO BID bladder #180 tabs 11/0708/20/24 Rx tablet,extended release 24 hr furosemide 20 mg tablet 20 mg PO DAILY #90 tabs 08/10/24 0 08/20/24 Rx cephalexin 500 mg capsule 500 mg PO TID 7 days #21 caps 12/07 Rx doxycycline monohydrate 100 mg 100 mg PO BID #14 caps 08/20/24 R x capsule Have you fallen in the past year?: Yes (2-3) Nurse's Note: pt has c/o of a wound she noticed one week ago on the outer aspect of her right fifth toe. pt denies pain [facility] History (Updated 08/20/24 @ 10:[address] Bernie Reagan MD) Toe ulcer Diabetic ulcer of toe Arrhythmia Generalized erosion of teeth Screening-pulmonary TB History of cerebrovascular accident Chronic anticoagulation Bilateral leg ulcer Intertrigo Acute on chronic heart failure CKD (chronic kidney disease) Paroxysmal A-fib Diabetes mellitus Hypertension Elevated brain natriuretic peptide (BNP) level Stage 3b chronic kidney disease (CKD) Subtherapeutic international normalized ratio (INR) Chronic back pain Tachycardia Paroxysmal atrial fibrillation with RVR Atrial fib/flutter, transient Osteomyelitis of finger of right hand retirement (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 without evidence of necrosis Abscess of right middle finger MRSA infection Acute kidney injury Bacteremia Finger infection Health care maintenance Flu vaccine need Urinary incontinence, overflow Burn injury of skin of finger Post-menopausal Chronic cough Irregular heartbeat Pancreatitis Weakness Depression Anxiety Alcohol use Arthritis Walker as ambulation aid Anemia Back pain Dietary restriction Former smoker CPAP (continuous positive airway pressure) dependence History of edema History of echocardiogram History of stress test Cardiology follow-up encounter Osteoporosis Preoperative evaluation to rule out surgical contraindication Atrial fibrillation COVID-19 vaccine series completed Venous insufficiency Paroxysmal atrial fibrillation Kidney disease Anxiety and depression Vision problems CVA (cerebral vascular accident) Hyperlipidemia Breast lump History of UTI Essential hypertension Non-rheumatic mitral valve stenosis Nonrheumatic aortic (valve) stenosis Overactive bladder Osteoarthritis DKA (diabetic ketoacidoses) Abnormal mamm (more content not included)... Normal [facility] Lymphocytes Auto (Unsp spec) [#/Vol]Ordered By: Bernie Reagan on 08-20-2024 Absolute lymphocyte count 1.02 X10^3/uL 0.83-4.51 [facility] Lymphocytes/100 WBC Auto (Un sp spec)Ordered By: Bernie Reagan on 08-20-2024 Automated lymphocyte count as percentage of total leukocytes 11.8 % Low 19-41 [facility] MCV (RBC) [Entitic vol]Order ed By: Bernie Reagan on 08-20-2024 MCV (mean corpuscular volume) determination 89.2 fL 81-99 [facility] MCV (mean corpuscular volume ) determinationOrdered By: Bernie Regaan on 08-20-2024 MCV (RBC) [Entitic vol] 89.2 fL 81-99 [facility] Mean corpuscular hemoglobin (MCH) determinationOrdered By: Bernie Reagan on 08-20-2024 MCH (RBC) [Entitic mass] 28.0 pg 27.0-32.0 [facility] Mean corpuscular hemoglobin (MCH) determination 28.0 pg 27.0-32.0 [facility] Mean corpuscular hemoglobin concentration (MCHC) determinationOrdered By: Bernie Reagan on 08-20-2024 Mean corpuscular hemoglobin concentration (MCHC) determination 31.4 g/dL Low 32-36 [facility] Mean platelet volume determi nationOrdered By: Yahirmilton freewaterestephanie Reagan on 08-20-2024 Mean platelet volume determination 10.2 fl 6.2-12.0 [facility] Monocyte percentageOrdered B y: Bernie Reagan on 08-20-2024 Monocytes/100 WBC (Bld) 5.7 % 0-10 [facility] Monocyte percentage 5.7 % 0-10 [facility] Neutrophil percentageOrdered By: Bernie Reagan on 08-20-2024 Neutrophils/100 WBC (Bld) 76.8 % High 47-70 [facility] Neutrophil percentage 76.8 % High 47-70 [facility] No Panel InformationOrdered By: Bernie Reagan on 08-20-2024 20 U/L <32 [facility] 6.6 % High 4.2-6.3 [facility] Nucleated red blood cell per centageOrdered By: Bernie Reagan on 08-20-2024 Nucleated red blood cell percentage 0 % 0-5 [facility] Platelet countOrdered By: Alex Reagan on 08-20-2024 Platelets (Bld) [#/Vol] 280 10*3/uL 150-450 [facility] Platelet count 280 K/mm3 150-450 [facility] Potassium (Unsp spec) [Mass/ Vol]Ordered By: Bernie Reagan on 08-20-2024 Potassium measurement (mass/volume) 4.9 mmol/L 3.3-5.1 [facility] Potassium measurement (mass/ volume)Ordered By: Bernie Reagan on 08-20-2024 Potassium (Unsp spec) [Mass/Vol] 4.9 mmol/L 3.3-5.1 [facility] RBC Auto (Bld) [#/Vol]Ordere d By: Bernie Reagan on 08-20-2024 RBC (Bld) [#/Vol] 3.79 10*6/uL Low 4.2-5.4 [facility] Automated blood erythrocyte count 3.79 M/mm3 Low 4.2-5.4 [facility] Serum creatinine measurement (mass/volume)Ordered By: Bernie Reagan on 08-20-2024 Creatinine [Mass/Vol] 1.14 mg/dL 0.70-1.20 [facility] Serum globulin measurementOr dered By: Bernie Reagan on 08-20-2024 Globulin (S) [Mass/Vol] 3.9 g/dL 2.2-4.2 [facility] Serum globulin measurement 3.9 g/dL 2.2-4.2 [facility] Serum glucose measurement (m ass/volume)Ordered By: Bernie Reagan on 08-20-2024 Glucose [Mass/Vol] 115 mg/dL High 70-99 [facility] Serum or plasma C reactive p rotein measurement (mass/volume)Ordered By: Bernie Reagan on 08-20-2024 CRP [Mass/Vol] 15.10 mg/L High 0.0-3.0 [facility] Serum or plasma alanine bean otransferase (ALT) measurementOrdered By: Bernie Reagan on 08-20-2024 ALT [Catalytic activity/Vol] 11 U/L <35 [facility] Serum or plasma albumin keyona urement (mass/volume)Ordered By: Bernie Reagan on 08-20-2024 Albumin [Mass/Vol] 4.0 g/dL 3.4-4.8 [facility] Serum or plasma albumin/glob ulin mass ratioOrdered By: Bernie Reagan on 08-20-2024 Albumin/Globulin [Mass ratio] 1.0 {ratio} 0.9-2.4 [facility] Serum or plasma alkaline kyle sphatase measurementOrdered By: Bernie Reagan on 08-20-2024 ALP [Catalytic activity/Vol] 75 U/L 35-104 [facility] Serum or plasma calcium keyona urement (mass/volume)Ordered By: Bernie Reagan on 08-20-2024 Calcium [Mass/Vol] 9.8 mg/dL 7.6-11.0 [facility] Serum or plasma urea nitroge n measurement (mass/volume)Ordered By: Bernie Reagan on 08-20-2024 Urea nitrogen [Mass/Vol] 28 mg/dL High 4-19 [facility] Sodium levelOrdered By: Yahir Reagan on 08-20-2024 Sodium [Moles/Vol] 140 mmol/L 133-145 [facility] Sodium level 140 mmol/L 133-145 [facility] Toe(s) Min 2 Viewson 025 Toe(s) Min 2 Views [facility] [address] [place] [address] Toe(s) Min 2 Views MR#: [id number] Acct: [id number] Name: JOSELINE ELLIS Rep #: [id number] : 1950 F 74 From: [facility] i DO PCP: Dr. Bernie Reagan MD Status: REG CLI Study: Toe(s) Min 2 Views Date of Exam: 08/20/24 Exam# [id number] Ordering Dr: Bernie Reagan MD PROCEDURE: Right toe radiographs, three views 08/20/2024 REASON FOR EXAM: RIGHT FIFTH TOE ULCER TECHNIQUE: Three views of the right toes were obtained. COMPARISON: None available FINDINGS: Three views of the right foot/toes were obtained. Bones are osteopenic. No acute fracture or dislocation of the right foot. No gross bony destructive process. There are moderate degenerative changes of the interphalangeal joints and of the 1st MTP joint. No abnormal soft tissue gas densities RAD/Toe(s) Min 2 Views IMPRESSION: Osteopenia. No definite acute bony abnormality or bony destructive process of the right toes. Moderate degenerative changes as above, likely due to osteoarthritis. [facility]: Dr. Bernie Reagan MD Child Caregiver Private Home: Signed Normal [facility] Total proteinOrdered By: Samy Reagan on 08-20-2024 Protein [Mass/Vol] 7.8 g/dL 5.9-8.4 [facility] Total protein 7.8 g/dL 5.9-8.4 [facility] Urea nitrogen [Mass/Vol]Orde red By: Bernie Reagan on 08-20-2024 Serum or plasma urea nitrogen measurement (mass/volume) 28 mg/dL High 4-19 [facility] Vitamin D, 25-hydroxyOrdered By: Bernie Reagan on 08-20-2024 Vitamin D, 25-hydroxy 33.9 ng/mL 30-100 [facility] Vitamin D,25 Hydroxyon 08-20 Vitamin D 25-OH 33.9 ng/mL Normal 30-100 [facility] Comment on above: Result Comment: May min D Status Deficiency: <20 ng/mL (50nmol/L) Insufficiency: 20-30 ng/mL (50-75 nmol/L) Sufficiency: 30-100 ng/mL (75-250 nmol/L) Toxicity: >100 ng/mL (>250 nmol/L) Performed By: #### L 100.0100, L506.1001, L500.4050, L101.9900, L501.6710 ####[facility] [address] [place], [address] White blood cell (WBC) count Ordered By: Bernie Reagan on 08-20-2024 WBC (Bld) [#/Vol] 8.7 10*3/uL 4.4-11.0 [facility] White blood cell (WBC) count 8.7 K/mm3 4.4-11.0 [facility] ALP [Catalytic activity/Vol] Ordered By: Bernie Reagan on 05-21-2024 Serum or plasma alkaline phosphatase measurement 85 U/L 45-117 [facility] ALT [Catalytic activity/Vol] Ordered By: Bernie Reagan on 05-21-2024 Serum or plasma alanine aminotransferase (ALT) measurement 24 U/L 13-56 [facility] Albumin [Mass/Vol]Ordered By : Bernie Reagan on 05-21-2024 Serum or plasma albumin measurement (mass/volume) 3.6 g/dL 3.2-5.0 [facility] Albumin to globulin ratioOrd ered By: Bernie Reagan on 05-21-2024 Albumin to globulin ratio 0.8 RATIO Low 0.9-2.4 [facility] Bilirubin, totalOrdered By: Bernie Reagan on 05-21-2024 Bilirubin, total 0.50 mg/dL 0.20-1.00 [facility] Blood urea nitrogen (BUN)/cr eatinine ratioOrdered By: Bernie Reagan on 05-21-2024 Blood urea nitrogen (BUN)/creatinine ratio 22.3 RATIO High 10-20 [facility] Calcium [Mass/Vol]Ordered By : Bernie Reagan on 05-21-2024 Serum or plasma calcium measurement (mass/volume) 9.8 mg/dL 8.5-10.1 [facility] Carbon dioxide measurementOr dered By: Bernie Reagan on 05-21-2024 Carbon dioxide measurement 26.0 mmol/L 21.0-32.0 [facility] Chloride measurementOrdered By: Bernie Reagan on 05-21-2024 Chloride measurement 106 mmol/L 98-107 [facility] Cholesterol [Mass/Vol]Ordere d By: Bernie Reagan on 05-21-2024 Serum or plasma cholesterol measurement (mass/volume) 176 mg/dL <200 [facility] Comprehensive Metabolic Prof ilon 05-21-2024 Albumin [Mass/Vol] 3.6 g/dL Normal 3.2-5.0 [facility] Comment on above: Performed By: #### L 500.4050, L500.4100, L501.9985 ####[facility] [address] [place], [address] Albumin/Globulin [Mass ratio] 0.8 {ratio} Low 0.9-2.4 [facility] Comment on above: Performed By: #### L 500.4050, L500.4100, L501.9985 ####[facility] [address] [place], [address] ALK P 85 U/L Normal 45-117 [facility] Comment on above: Performed By: #### L 500.4050, L500.4100, L501.9985 ####[facility] [address] [place], [address] ALT [Catalytic activity/Vol] 24 U/L Normal 13-56 [facility] Comment on above: Performed By: #### L 500.4050, L500.4100, L501.9985 ####[facility] [address] [place], [address] AST [Catalytic activity/Vol] 20 U/L Normal 15-37 [facility] Comment on above: Performed By: #### L 500.4050, L500.4100, L501.9985 ####[facility] [address] [place], [address] Bilirubin [Mass/Vol] 0.50 mg/dL Normal 0.20-1.00 [facility] Comment on above: Result Comment: For patients on eltrombopag therapy, use of Dimension [place] TBIL is not recommended. Performed By: #### L 500.4050, L500.4100, L501.9985 ####[facility] [address] [place], [address] BUN/CRE 22.3 RATIO High 10-20 [facility] Comment on above: Performed By: #### L 500.4050, L500.4100, L501.9985 ####[facility] [address] [place], [address] CA,Total 9.8 mg/dL Normal 8.5-10.1 [facility] Comment on above: Performed By: #### L 500.4050, L500.4100, L501.9985 ####[facility] [address] [place], [address] Chloride [Moles/Vol] 106 mmol/L Normal 98-107 [facility] Comment on above: Performed By: #### L 500.4050, L500.4100, L501.9985 ####[facility] [address] [place], [address] CO2 [Moles/Vol] 26.0 mmol/L Normal 21.0-32.0 [facility] Comment on above: Performed By: #### L 500.4050, L500.4100, L501.9985 ####[facility] [address] [place], [address] Creatinine [Mass/Vol] 1.21 mg/dL High 0.55-1.02 [facility] Comment on above: Result Comment: The validity of the calculated GFR GFRAA in patients over 70 years has not been determined. Clinical correlation is essential. Performed By: #### L 500.4050, L500.4100, L501.9985 ####[facility] [address] [place], [address] EST GFR - AA 56 mL/min Low >60 [facility] Comment on above: Result Comment: Afri can [place] GFR Calc Performed By: #### L 500.4050, L500.4100, L501.9985 ####[facility] [address] [place], [address] GAP 7 Normal 5-15 [facility] Comment on above: Performed By: #### L 500.4050, L500.4100, L501.9985 ####[facility] [address] [place], [address] GFR/1.73 sq M.predicted among non-blacks MDRD (S/P/Bld) [Vol rate/Area] 46 mL/min/{1.73_m2} Low >60 [facility] Comment on above: Result Comment: Non- GFR Calc Performed By: #### L 500.4050, L500.4100, L501.9985 ####[facility] [address] [place], [address] Globulin (S) [Mass/Vol] 4.3 g/dL High 2.2-4.2 [facility] Comment on above: Performed By: #### L 500.4050, L500.4100, L501.9985 ####[facility] [address] [place], [address] Glucose [Mass/Vol] 186 mg/dL High 74-106 [facility] Comment on above: Result Comment: Fast ing Glucose result greater than or equal to 126 mg/dL suggests DIABETES MELLITUS per A.D.A. criteria. Performed By: #### L 500.4050, L500.4100, L501.9985 ####[facility] [address] [place], [address] Potassium [Moles/Vol] 4.8 mmol/L Normal 3.5-5.1 [facility] Comment on above: Performed By: #### L 500.4050, L500.4100, L501.9985 ####[facility] [address] [place], [address] Sodium [Moles/Vol] 138 mmol/L Normal 136-145 [facility] Comment on above: Performed By: #### L 500.4050, L500.4100, L501.9985 ####[facility] [address] [place], [address] T PROT 7.9 g/dL Normal 6.4-8.2 [facility] Comment on above: Performed By: #### L 500.4050, L500.4100, L501.9985 ####[facility] [address] [place], [address] Urea nitrogen [Mass/Vol] 27 mg/dL High 7-18 [facility] Comment on above: Performed By: #### L 500.4050, L500.4100, L501.9985 ####[facility] [address] [place], [address] Creatinine [Mass/Vol]Ordered By: Bernie Reagan on 05-21-2024 Serum or plasma creatinine measurement (mass/volume) 1.21 mg/dL High 0.55-1.02 [facility] Estimated glomerular filtrat ion rate (GFR) AmericanOrdered By: Bernie Reagan on 05-21-2024 Estimated glomerular filtration rate (GFR) 56 mL/min Low >60 [facility] Glomerular filtration rate ( GFR) estimationOrdered By: Bernie Reagan on 05-21-2024 Glomerular filtration rate (GFR) estimation 46 mL/min Low >60 [facility] Glucose measurementOrdered B y: Bernie Reagan on 05-21-2024 Glucose measurement 186 mg/dL High 74-106 [facility] HbA1c (Bld) [Mass fraction]O rdered By: Alexambar Reagan on 05-21-2024 Hemoglobin A1c percentage 7.2 % High 3.8-5.6 [facility] Hemoglobin A1con 05-21-2024 HbA1c (Bld) [Mass fraction] 7.2 % High 3.8-5.6 [facility] Comment on above: Result Comment: Norm al < 5.7 % Prediabetic 5.7 - 6.4 % Diabetic >or= 6.5 % Please note range changes. Performed By: #### L 500.4050, L500.4100, L501.9985 ####[facility] [address] [place], [address] High density lipoprotein (HD L) measurementOrdered By: Alexambar Reagan on 05-21-2024 High density lipoprotein (HDL) measurement 66 mg/dL >40 [facility] Internal Medicine Office Vis iton 05-21-2024 Internal Medicine Office Visit [facility] [address] [place] [address] [place] [address] OFFICE VISIT Date of Service: 05/21/24 MR#: [id number] Acct: [id number] Name: JOSELINE ELLIS Rep #: [id number] : 1950 Provider: Dr. Bernie benjamin MD Age/Sex: 74/F Location: [facility] [place] Status: Signed Intake Vital Signs 02/09/24 10:45 05/21/24 13:50 Height 5 ft 1 in 5 ft 1 in Weight: 180 lb BMI 34.0 BP 148/88 H Blood Pressure Location Lt brachial Position Sitting Respiration 16 Pulse 136 H Pulse Source Auscultation Temp 97.2 F L Temp Source Temporal Pulse Oximetry (%) 99 Oxygen Delivery Method room air Intake Visit Reasons: MED FU Chief Complaint: med f/u 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 Required: No Accompanied by: Self Is patient in pain?: No Allergies fosinopril (From Monopril) Allergy (Unknown, Verified 05/21/24 13:47) Other pioglitazone Adverse Reaction (Verified 05/21/24 13:47) Other Medications ???Medication ???Instructions ???Recorded ???Confirmed ???Type diltiazem HCl 240 mg 240 mg PO DAILY heart 09/09/22 05/21/24 History capsule,extended release 24 hr (Cardizem CD) WOUND CARE #1 ea 10/06/22 05/21/24 Rx glimepiride 4 mg tablet 4 mg PO DAILY dm 04/07/23 05/21/24 History compress.stocking,kn ee,reg,lrg #2 ea 05/26/23 05/21/24 Rx apixaban 5 mg tablet 5 mg PO BID blood thinner #180 tabs 10/26/23 05/21/24 Rx ascorbic acid (vitamin C) 500 mg 500 mg PO DAILY vitamin #90 tabs 10/26/23 05/21/24 Rx tablet (Vitamin C) cholecalciferol (vitamin D3) 50 50 mcg PO DAILY vitamin #90 caps 10/26/23 05/21/24 Rx mcg (2,000 unit) capsule ferrous sulfate 325 mg (65 mg 325 mg PO DAILY Supplement #90 tabs 10/26/23 05/21/24 Rx iron) tablet multivitamin 1 tab PO DAILY SUPPLEMENT #90 tabs 10/26/23 05/21/24 Rx sertraline 100 mg tablet (Zoloft) 100 mg PO DAILY anxiety #90 tabs 10/26/23 05/21/24 Rx furosemide 20 mg tablet 20 mg PO DAILY #90 tabs 12/02/23 05/21/24 Rx metoprolol tartrate 100 mg tablet 100 mg PO BID #60 tabs 12/02/23 05/21/24 Rx acetaminophen 325 mg capsule 650 mg PO TID PRN Pain 12/07/23 05/21/24 History bacitracin zinc 500 unit/gram 1 applic topical TID #28.4 grams 12/13/23 05/21/24 Rx topical ointment bismuth tribrom-petrolatum,w h 5 X #50 ea 01/25/24 05/21/24 Rx 9 bandage (Xeroform Petrolatum Dressing) hydroxyzine HCl 25 mg tablet 25 mg PO TID PRN itching #30 tabs 01/25/24 05/21/24 Rx Handicap Placard #1 ea 01/31/24 05/21/24 Rx metformin 1,000 mg tablet 1,000 mg PO BID DM #180 tabs 03/20/24 05/21/24 Rx oxybutynin chloride 15 mg 15 mg PO BID bladder #180 tabs 03/20/24 05/21/24 Rx tablet,extended release 24 hr amlodipine 10 mg tablet 10 mg PO DAILY BP #90 tabs 03/23/24 05/21/24 Rx atorvastatin 10 mg tablet 10 mg PO DAILY #30 tabs 05/18/24 05/21/24 Rx Have you fallen in the past year?: No PFSH Medical History (Updated 05/21/24 @ 16:[address] Bernie Reagan MD) Arrhythmia Generalized erosion of teeth Screening-pulmonary TB History of cerebrovascular accident Chronic anticoagulation Bilateral leg ulcer Intertrigo Acute on chronic heart failure CKD (chronic kidney disease) Paroxysmal A-fib Diabetes mellitus Hypertension Elevated brain natriuretic peptide (BNP) level Stage 3b chronic kidney disease (CKD) Subtherapeutic international normalized ratio (INR) Chronic back pain Tachycardia Paroxysmal atrial fibrillation with RVR Atrial fib/flutter, transient Osteomyelitis of finger of right hand retirement (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 without evidence of necrosis Abscess of right middle finger MRSA infection Acute kidney injury Bacteremia Finger infection Health care maintenance Flu vaccine need Urinary incontinence, overflow Burn injury of skin of finger Post-menopausal Chronic cough Irregular heartbeat Pancreatitis Weakness Depression Anxiety Alcohol use Arthritis Walker as ambulation aid Anemia Back pain Dietary restriction Former smoker CPAP (continuous positive airway pressure) dependence History of edema History of echocardiogram History of stress test Cardiology follow-up encounter Osteoporosis Preoperative evaluation to rule out surgical contraindication Atrial fibrillation COVID-19 vaccine series completed Venous insufficiency Paroxysmal atrial fibrillation Kidney disease Anxiety and depression Vision problems CVA (cerebral vascular accident) Hyperlipidemia Breast lump History of UTI Essential hypertension Non-rheumatic mitral valve stenosis Nonrheumatic aortic (valve) stenosis Overactive bladder Osteoarthritis DKA (diabetic ketoacidoses) Abnormal mammogram of right breast Depression with anxiety Surgical History ... Normal [facility] Lipid Profileon 05-21-2024 Cholesterol [Mass/Vol] 176 mg/dL Normal 200 [facility] Comment on above: Result Comment: <200 mg/dL Desirable 200-240 mg/dL Borderline >240 mg/dL High Risk Performed By: #### L 500.4050, L500.4100, L501.9985 ####[facility] [address] [place], [address] Cholesterol in HDL [Mass/Vol] 66 mg/dL Normal [facility] Comment on above: Result Comment: The drugs N-Acetylcysteine and Metamizole may falsely depress this assay. Reference Range HDL <40 mg/dL Low HDL Cholesterol HDL >or= 60 mg/dL High HDL Cholesterol Performed By: #### L 500.4050, L500.4100, L501.9985 ####[facility] [address] [place], [address] Cholesterol in LDL [Mass/Vol] 85 mg/dL Normal 0-130 [facility] Comment on above: Performed By: #### L 500.4050, L500.4100, L501.9985 ####[facility] [address] [place], [address] Cholesterol in VLDL [Mass/Vol] 25 mg/dL Normal 5-40 [facility] Comment on above: Performed By: #### L 500.4050, L500.4100, L501.9985 ####[facility] [address] [place], [address] Triglyceride [Mass/Vol] 125 mg/dL Normal [facility] Comment on above: Result Comment: The drugs N-Acetylcysteine and Metamizole may falsely depress this assay. Serum Triglycerides Reference Interval Normal <150 mg/dL Borderline high 150 - 199 mg/dL High 200 - 499 mg/dL Very High > or = 500 mg/dL Performed By: #### L 500.4050, L500.4100, L501.9985 ####[facility] [address] [place], [address] Low density lipoprotein (LDL ) cholesterol measurementOrdered By: Bernie Reagan on 05-21-2024 Low density lipoprotein (LDL) cholesterol measurement 85 mg/dL 0-130 [facility] No Panel InformationOrdered By: Bernie Reagan on 05-21-2024 20 U/L 15-37 [facility] Potassium measurementOrdered By: Bernie Reagan on 05-21-2024 Potassium measurement 4.8 mmol/L 3.5-5.1 [facility] Serum anion gap measurementO rdered By: Bernie Reagan on 05-21-2024 Serum anion gap measurement 7 5-15 [facility] Serum globulin measurementOr dered By: Bernie Reagan on 05-21-2024 Serum globulin measurement 4.3 g/dL High 2.2-4.2 [facility] Sodium levelOrdered By: Yahir Reagan on 05-21-2024 Sodium level 138 mmol/L 136-145 [facility] Total proteinOrdered By: Samy Reagan on 05-21-2024 Total protein 7.9 g/dL 6.4-8.2 [facility] Triglycerides measurementOrd ered By: Bernie Reagan on 05-21-2024 Triglycerides measurement 125 mg/dL <199 [facility] Urea nitrogen [Mass/Vol]Orde red By: Bernie Reagan on 05-21-2024 Serum or plasma urea nitrogen measurement (mass/volume) 27 mg/dL High 7-18 [facility] Very low density lipoprotein (VLDL) cholesterol measurementOrdered By: Bernie Reagan on 05-21-2024 Very low density lipoprotein (VLDL) cholesterol measurement 25 mg/dL 5-40 [facility] Internal Medicine Office Vis iton 02-09-2024 Internal Medicine Office Visit [facility] [address] [place] [address] [address] [place] [address] OFFICE VISIT Date of Service: 02/09/24 MR#: [id number] Acct: [id number] Name: JOSELINE ELLIS Rep #: [id number] : 1950 Provider: TERA Barnett Age/Sex: 74/F Location: [facility] [place] Status: Signed Intake Vital Signs 01/25/24 09:39 02/09/24 10:45 Height 5 ft 1 in 5 ft 1 in Weight: 184 lb BMI 34.7 BP 126/70 H 114/68 Blood Pressure Location Lt brachial Lt brachial Position Sitting Sitting Respiration 16 20 H Pulse 69 128 H Pulse Source Monitor Monitor Temp 97.7 F L 97.1 F L Temp Source Temporal Temporal Pulse Oximetry (%) 99 98 Oxygen Delivery Method room air room air Intake Visit Reasons: 2 W FU Chief Complaint: 3 week 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 Required: No Is patient in pain?: No Allergies fosinopril (From Monopril) Allergy (Unknown, Verified 02/09/24 10:38) Other pioglitazone Adverse Reaction (Verified 02/09/24 10:38) Other Medications ???Medication ???Instructions ???Recorded ???Confirmed ???Type diltiazem HCl 240 mg 240 mg PO DAILY heart 09/09/22 02/09/24 History capsule,extended release 24 hr (Cardizem CD) WOUND CARE #1 ea 10/06/22 02/09/24 Rx glimepiride 4 mg tablet 4 mg PO DAILY dm 04/07/23 02/09/24 History compress.stocking,kn ee,reg,lrg #2 ea 05/26/23 02/09/24 Rx apixaban 5 mg tablet 5 mg PO BID blood thinner #180 tabs 10/26/23 02/09/24 Rx ascorbic acid (vitamin C) 500 mg 500 mg PO DAILY vitamin #90 tabs 10/26/23 02/09/24 Rx tablet (Vitamin C) cholecalciferol (vitamin D3) 50 50 mcg PO DAILY vitamin #90 caps 10/26/23 02/09/24 Rx mcg (2,000 unit) capsule ferrous sulfate 325 mg (65 mg 325 mg PO DAILY Supplement #90 tabs 10/26/23 02/09/24 Rx iron) tablet metformin 1,000 mg tablet 1,000 mg PO BID DM #180 tabs 10/26/23 02/09/24 Rx multivitamin 1 tab PO DAILY SUPPLEMENT #90 tabs 10/26/23 02/09/24 Rx oxybutynin chloride 15 mg 15 mg PO BID bladder #180 tabs 10/26/23 02/09/24 Rx tablet,extended release 24 hr sertraline 100 mg tablet (Zoloft) 100 mg PO DAILY anxiety #90 tabs 10/26/23 02/09/24 Rx furosemide 20 mg tablet 20 mg PO DAILY #90 tabs 12/02/23 02/09/24 Rx metoprolol tartrate 100 mg tablet 100 mg PO BID #60 tabs 12/02/23 02/09/24 Rx acetaminophen 325 mg capsule 650 mg PO TID PRN Pain 12/07/23 02/09/24 History bacitracin zinc 500 unit/gram 1 applic topical TID #28.4 grams 12/13/23 02/09/24 Rx topical ointment atorvastatin 10 mg tablet 10 mg PO DAILY #30 tabs 12/16/23 02/09/24 Rx amlodipine 10 mg tablet 10 mg PO DAILY BP #90 tabs 01/03/24 02/09/24 Rx bismuth tribrom-petrolatum,w h 5 X #50 ea 01/25/24 02/09/24 Rx 9 bandage (Xeroform Petrolatum Dressing) hydroxyzine HCl 25 mg tablet 25 mg PO TID PRN itching #30 tabs 01/25/24 02/09/24 Rx Handicap Placard #1 ea 01/31/24 02/09/24 Rx Have you fallen in the past year?: No Nurse's Note: Here to check up on legs are feeling better. States there is no pain in legs anymore. Has no concerns. Upon exam patient has multiple open sores and bleeding on BLE. Unable to obtain EKG due to system error. 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 without evidence of necrosis Abscess of right middle finger MRSA infection Acute kidney injury Bacteremia Finger infection Health care maintenance Flu vaccine need Urinary incontinence, overflow Burn injury of skin of finger Post-menopausal Chronic cough Irregular heartbeat Pancreatitis Weakness Depression Anxiety Alcohol use Arthritis Walker as ambulation aid Anemia Back pain Dietary restriction Former smoker CPAP (continuous positive airway pressure) dependence History of edema History of echocardiogram History of stress test Cardiology follow-up encounter Osteoporosis Preoperative evaluation to rule out surgical contraindication Atrial fibrillation COVID-19 vaccine series completed Venous insufficiency Paroxysmal atrial fibrillation Kidney disease Anxiety and depression Vision problems CVA (cerebral vascular accident) Hyperlipidemia Breast lump History of UTI Essential hypertension Non-rheumatic mitral valve sten (more content not included)... Normal [facility] Internal Medicine Office Vis valentina 01-25-2024 Internal Medicine Office Visit [facility] [address] [place] [address] [place] [address] OFFICE VISIT Date of Service: 01/25/24 MR#: [id number] Acct: [id number] Name: JOSELINE ELLIS Rep #: [id number] : 1950 Provider: TERA Barnett Age/Sex: 74/F Location: [facility] [place] Status: Signed Intake Vital Signs 12/28/23 10:34 01/05/24 08:10 01/25/24 09:39 Height 5 ft 1 in 5 ft 1 in 5 ft 1 in Weight: 184 lb 6 oz BMI 34.8 BP 132/82 H 126/70 H Blood Pressure Location Lt brachial Lt brachial Position Sitting Sitting Respiration 16 16 Pulse 57 L 69 Pulse Source Monitor Monitor Temp 97.9 F 97.7 F L Temp Source Temporal Temporal Pulse Oximetry (%) 97 99 Oxygen Delivery Method room air room air Intake Visit Reasons: acute - 3 wk fu Chief Complaint: 3 week 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 Required: No Accompanied by: Self Is patient in pain?: No Allergies fosinopril (From Monopril) Allergy (Unknown, Verified 01/25/24 09:32) Other pioglitazone Adverse Reaction (Verified 01/25/24 09:32) Other Medications ???Medication ???Instructions ???Recorded ???Confirmed ???Type diltiazem HCl 240 mg 240 mg PO DAILY heart 09/09/22 01/25/24 History capsule,extended release 24 hr (Cardizem CD) WOUND CARE #1 ea 10/06/22 01/25/24 Rx glimepiride 4 mg tablet 4 mg PO DAILY dm 04/07/23 01/25/24 History compress.stocking,kn ee,reg,lrg #2 ea 05/26/23 01/25/24 Rx apixaban 5 mg tablet 5 mg PO BID blood thinner #180 tabs 10/26/23 01/25/24 Rx ascorbic acid (vitamin C) 500 mg 500 mg PO DAILY vitamin #90 tabs 10/26/23 01/25/24 Rx tablet (Vitamin C) cholecalciferol (vitamin D3) 50 50 mcg PO DAILY vitamin #90 caps 10/26/23 01/25/24 Rx mcg (2,000 unit) capsule ferrous sulfate 325 mg (65 mg 325 mg PO DAILY Supplement #90 tabs 10/26/23 01/25/24 Rx iron) tablet metformin 1,000 mg tablet 1,000 mg PO BID DM #180 tabs 10/26/23 01/25/24 Rx multivitamin 1 tab PO DAILY SUPPLEMENT #90 tabs 10/26/23 01/25/24 Rx oxybutynin chloride 15 mg 15 mg PO BID bladder #180 tabs 10/26/23 01/25/24 Rx tablet,extended release 24 hr sertraline 100 mg tablet (Zoloft) 100 mg PO DAILY anxiety #90 tabs 10/26/23 01/25/24 Rx furosemide 20 mg tablet 20 mg PO DAILY #90 tabs 12/02/23 01/25/24 Rx metoprolol tartrate 100 mg tablet 100 mg PO BID #60 tabs 12/02/23 01/25/24 Rx acetaminophen 325 mg capsule 650 mg PO TID PRN Pain 12/07/23 01/25/24 History bacitracin zinc 500 unit/gram 1 applic topical TID #28.4 grams 12/13/23 01/25/24 Rx topical ointment atorvastatin 10 mg tablet 10 mg PO DAILY #30 tabs 12/16/23 01/25/24 Rx amlodipine 10 mg tablet 10 mg PO DAILY BP #90 tabs 01/03/24 01/25/24 Rx bismuth tribrom-petrolatum,w h 5 X #50 ea 01/25/24 01/25/24 Rx 9 bandage (Xeroform Petrolatum Dressing) hydroxyzine HCl 25 mg tablet 25 mg PO TID PRN itching #30 tabs 01/25/24 01/25/24 Rx Have you fallen in the past year?: No PFSH Medical History Screening-pulmonary TB History of cerebrovascular accident Chronic anticoagulation Bilateral leg ulcer Intertrigo Acute on chronic heart failure CKD (chronic kidney disease) Paroxysmal A-fib Diabetes mellitus Hypertension Elevated brain natriuretic peptide (BNP) level Stage 3b chronic kidney disease (CKD) Subtherapeutic international normalized ratio (INR) Chronic back pain Tachycardia Paroxysmal atrial fibrillation with RVR Atrial fib/flutter, transient Osteomyelitis of finger of right hand retirement (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 without evidence of necrosis Abscess of right middle finger MRSA infection Acute kidney injury Bacteremia Finger infection Health care maintenance Flu vaccine need Urinary incontinence, overflow Burn injury of skin of finger Post-menopausal Chronic cough Irregular heartbeat Pancreatitis Weakness Depression Anxiety Alcohol use Arthritis Walker as ambulation aid Anemia Back pain Dietary restriction Former smoker CPAP (continuous positive airway pressure) dependence History of edema History of echocardiogram History of stress test Cardiology follow-up encounter Osteoporosis Preoperative evaluation to rule out surgical contraindication Atrial fibrillation COVID-19 vaccine series completed Venous insufficiency Paroxysmal atrial fibrillation Kidney disease Anxiety and depression Vision problems CVA (cerebral vascular accident) Hyperlipidemia Breast lump History of UTI Essential hypertension Non-rheumatic mitral valve stenosis Nonrheumatic aortic (valve) stenosis Overactive bladder Osteoarthritis DKA (diabetic ketoacidoses) Abnormal mammogram of right breast Depression with anxiety Surgical History ... Normal [facility] Internal Medicine Office Vis itoshi 12-28-2023 Internal Medicine Office Visit [facility] [place], [place] [address] OFFICE VISIT Date of Service: 12/28/23 MR#: [id number] Acct: [id number] Name: JOSELINE ELLIS Rep #: [id number] : 1950 Provider: TERA Barnett Age/Sex: 73/F Location: [facility] [place] Status: Signed Intake Vital Signs 12/07/23 10:27 08/14/24 10:34 Height 5 ft 1 in 5 ft 1 in Weight: 185 lb 184 lb 6 oz BMI 34.9 34.8 BP 144/70 H 132/82 H Blood Pressure Location Lt brachial Lt brachial Position Sitting Sitting Respiration 17 16 Pulse 57 L 57 L Pulse Source Monitor Monitor Temp 98.0 F 97.9 F Temp Source Temporal Temporal Pulse Oximetry (%) 96 97 Oxygen Delivery Method room air room air Intake Visit Reasons: 4 wk Chief Complaint: 4 week 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 Required: No Accompanied by: Self Is patient in pain?: No Allergies fosinopril (From Monopril) Allergy (Unknown, Verified 12/28/23 10:30) Other pioglitazone Adverse Reaction (Verified 12/28/23 10:30) Other Medications ???Medication ???Instructions ???Recorded ???Confirmed ???Type diltiazem HCl 240 mg 240 mg PO DAILY heart 09/09/22 12/28/23 History capsule,extended release 24 hr (Cardizem CD) WOUND CARE #1 ea 10/06/22 12/28/23 Rx glimepiride 4 mg tablet 4 mg PO DAILY dm 04/07/23 12/28/23 History compress.stocking,kn ee,reg,lrg #2 ea 05/26/23 12/28/23 Rx amlodipine 10 mg tablet 10 mg PO DAILY BP #90 tabs 10/26/23 12/28/23 Rx apixaban 5 mg tablet 5 mg PO BID blood thinner #180 tabs 10/26/23 12/28/23 Rx ascorbic acid (vitamin C) 500 mg 500 mg PO DAILY vitamin #90 tabs 10/26/23 12/28/23 Rx tablet (Vitamin C) cholecalciferol (vitamin D3) 50 50 mcg PO DAILY vitamin #90 caps 10/26/23 12/28/23 Rx mcg (2,000 unit) capsule ferrous sulfate 325 mg (65 mg 325 mg PO DAILY Supplement #90 tabs 10/26/23 12/28/23 Rx iron) tablet metformin 1,000 mg tablet 1,000 mg PO BID DM #180 tabs 10/26/23 12/28/23 Rx multivitamin 1 tab PO DAILY SUPPLEMENT #90 tabs 10/26/23 12/28/23 Rx oxybutynin chloride 15 mg 15 mg PO BID bladder #180 tabs 10/26/23 12/28/23 Rx tablet,extended release 24 hr sertraline 100 mg tablet (Zoloft) 100 mg PO DAILY anxiety #90 tabs 10/26/23 12/28/23 Rx furosemide 20 mg tablet 20 mg PO DAILY #90 tabs 12/02/23 12/28/23 Rx metoprolol tartrate 100 mg tablet 100 mg PO BID #60 tabs 12/02/23 12/28/23 Rx acetaminophen 325 mg capsule 650 mg PO TID PRN Pain 12/07/23 12/28/23 History bacitracin zinc 500 unit/gram 1 applic topical TID #28.4 grams 12/13/23 12/28/23 Rx topical ointment atorvastatin 10 mg tablet 10 mg PO DAILY #30 tabs 12/16/23 12/28/23 Rx Have you fallen in the past year?: No PFSH Medical History Screening-pulmonary TB History of cerebrovascular accident Chronic anticoagulation Bilateral leg ulcer Intertrigo Acute on chronic heart failure CKD (chronic kidney disease) Paroxysmal A-fib Diabetes mellitus Hypertension Elevated brain natriuretic peptide (BNP) level Stage 3b chronic kidney disease (CKD) Subtherapeutic international normalized ratio (INR) Chronic back pain Tachycardia Paroxysmal atrial fibrillation with RVR Atrial fib/flutter, transient Osteomyelitis of finger of right hand retirement (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 without evidence of necrosis Abscess of right middle finger MRSA infection Acute kidney injury Bacteremia Finger infection Health care maintenance Flu vaccine need Urinary incontinence, overflow Burn injury of skin of finger Post-menopausal Chronic cough Irregular heartbeat Pancreatitis Weakness Depression Anxiety Alcohol use Arthritis Walker as ambulation aid Anemia Back pain Dietary restriction Former smoker CPAP (continuous positive airway pressure) dependence History of edema History of echocardiogram History of stress test Cardiology follow-up encounter Osteoporosis Preoperative evaluation to rule out surgical contraindication Atrial fibrillation COVID-19 vaccine series completed Venous insufficiency Paroxysmal atrial fibrillation Kidney disease Anxiety and depression Vision problems CVA (cerebral vascular accident) Hyperlipidemia Breast lump History of UTI Essential hypertension Non-rheumatic mitral valve stenosis Nonrheumatic aortic (valve) stenosis Overactive bladder Osteoarthritis DKA (diabetic ketoacidoses) Abnormal mammogram of right breast Depression with anxiety Surgical History History of hip surgery History of amputation of finger of right hand History of left elbow replacement History of hysterectomy History of carpal tunnel release History of back surgery Status post alivia (more content not included)... Normal [facility] Inital Evaluation (1) - PTon 12-26-2023 Inital Evaluation (1) - PT [facility] Physical Therapy [facility] [address] [place] [address] / REHABILITATION SERVICES INITIAL EVALUATION MR#: [id number] Acct: [id number] Name: JOSELINE ELLIS Rep #: [id number] : 1950 73 From: Tiff BELL Referring Dr.: TERA Barnett Status: REG RCR Insurance: [facility] MEDICARE [employer] SELF PAY INSURANCE Patient's Visit Information Visit Information Visit Information: JOSELINE ELLIS is a 73 year old F referred to Physical Therapy by TERA Barnett with a diagnosis of Debility. Date of Evaluation: 12/26/23 Physical Therapist: RAY Rasmussen Visit Plan Frequency: 2x /Week Duration: 2 Months Plan: 2X/ week for 8 weeks for endurance, gait training, walking endurance, LE strength, functional strength with HEP. Pt is concerned about co-pay and may only be able to come on a limited basis based on the van schedule as she is home bound other than Dr kennedy per her subjective Subjective Subjective: Pt shattered her R hip a year ago and she lives on one floor in her house and she just turned around and just fell. She had some PT but it did not go very well. She was using the walker somewhat before the fall. She just can't walk long distances...she is not coordinated with her back and her legs. She uses the walker at all times now. She does drive. She has to use hospital transportation. She has weakness in her legs. She has a house with 5 levels but she is not going up any of them. She wants to be stronger, be able to walk without having to rest so much. She lives a lone. She has a hospital bed in her living room. She has to be really careful how she moves. Pain Back pain: Pain Intensity (Out of 10): 4 Objective Objective: Gait: walks with a rollator without a seat with flexed trunk, small steppage steps (does not fern picker feet), WBOS. She needed to sit and rest once and stood once to rest on the way back to the treatment rooms (118 feet). On the way out she rested just as above but also tripped on her L foot and had the walker to brace herself Sit to stand: able to stand up using her UE's to get out of the chair. LE MMT: R hip flex 7.3 and L hip flex 7.8 R knee ext 15.2 and l 12.5 R knee flex 10.5 and L 10 Standing heel and toe raises X 5 each with decrease ROM Pt is able to stand with EO and EC X 30 seconds with some small sway. She is unsteady standing with no UE support with EO with horizontal head turns. Balance/Special Test Scores Lower Extremity Functional Score: 28 Goals Goal 1:: I HEP Goal Time Frame: 6-8 Weeks Goal 2:: Be able to walk 118 feet with no rest break and more smooth gait pattern Goal Time Frame: 6-8 Weeks Goal 3:: Be able to get out of a chair using one arm with smooth motion X 5 without needing a rest break Rehabilitation Potential Rehabilitation Potential: Good Anticipated Interventions Patient/Client Instruction: Educate patient on: Condition and Plan of Care For the Purpose of:: To decrease pain, To increase ROM, To improve nutrient delivery to tissue, To improve muscle performance and motor function, To improve ability to perform ADL's, To increase tolerance to activity/condition/p osition, To improve performance and independence with ADL's, To decrease level of supervision to perform tasks, To improve ability of physical actions for home/community/work/ leisure, To improve gait and locomotor functions, To increase flexibility/ROM, To improve endurance, To improve balance and To improve safety with gait Therapeutic Exercise to Include: Strength training, Endurance training, Balance training, Body mechanics, Postural training, Flexibilty training, Gait and locomotor training, Neuromotor development and Dynamic Lumbar Stabilization For the Purpose of:: To increase ROM, To improve nutrient delivery to tissue, To improve muscle performance and motor function, To improve ability to perform ADL's, To increase tolerance to activity/condition/p osition, To improve performance and independence with ADL's, To decrease level of supervision to perform tasks, To improve ability of physical actions for home/community/work/ leisure, To improve gait and locomotor functions, To improve health of tissue, To decrease soft tissue restriction, To increase flexibility/ROM, To improve endurance, To improve balance and To improve safety with gait Functional Training to Include: Gait training For the Purpose of:: To improve gait and locomotor functions Text: Thank you for the opportunity to evaluate your patient. For Medicare and Medicare HMO plans, please review the plan of care and approve it. It will need to be FAXED BACK to us at [phone] for Medicare purposes. For Medicare only, by signing this I certify the plan of care. Please let me know if there are questions or concerns regarding this plan of c (more content not included)... Normal [facility] CBC W/Diff, Automatedon 07-2 Absolute Lymph 1.33 X10 3/uL Normal 0.83-4.51 [facility] Comment on above: Performed By: #### L 100.0100, L500.4100, L500.4050 #### [facility] [address] [facility] [address] Absolute Neut 6.2 X10 3/uL Normal 2.0-7.7 [facility] Comment on above: Performed By: #### L 100.0100, L500.4100, L500.4050 #### [facility] [address] [place], [address] Basophils/100 WBC (Bld) 0.5 % Normal 0-1 [facility] Comment on above: Performed By: #### L 100.0100, L500.4100, L500.4050 #### [facility] [address] [place], [address] Eosinophils/100 WBC (Bld) 3.9 % Normal 0-5 [facility] Comment on above: Performed By: #### L 100.0100, L500.4100, L500.4050 #### [facility] [address] [place], [address] Erythrocyte distribution width (RBC) [Ratio] 13.8 % Normal 11.6-14.6 [facility] Comment on above: Performed By: #### L 100.0100, L500.4100, L500.4050 #### [facility] [address] [place], [address] Hematocrit (Bld) [Volume fraction] 38.0 % Normal 37-47 [facility] Comment on above: Performed By: #### L 100.0100, L500.4100, L500.4050 #### [facility] [address] [place] [place], [address] Hemoglobin (Bld) [Mass/Vol] 12.2 g/dL Normal 12.0-15.0 [facility] Comment on above: Performed By: #### L 100.0100, L500.4100, L500.4050 #### [facility] [address] [place], [address] IG% 0.500 Normal 0.0-0.9 [facility] Comment on above: Result Comment: IG% - Immature Granulocytes (promyelocytes, myelocytes and metamyelocytes) > 1% indicates that a LEFT SHIFT is Present. Performed By: #### L 100.0100, L500.4100, L500.4050 #### [facility] [address] [place], [address] Lymphocytes/100 WBC (Bld) 15.8 % Low 19-41 [facility] Comment on above: Performed By: #### L 100.0100, L500.4100, L500.4050 #### [facility] [address] [place], [address] MCH (RBC) [Entitic mass] 28.2 pg Normal 27.0-32.0 [facility] Comment on above: Performed By: #### L 100.0100, L500.4100, L500.4050 #### [facility] [address] [place], [address] MCHC (RBC) [Mass/Vol] 32.1 g/dL Normal 32-36 [facility] Comment on above: Performed By: #### L 100.0100, L500.4100, L500.4050 #### [facility] [address] [place], [address] MCV (RBC) [Entitic vol] 87.8 fL Normal 81-99 [facility] Comment on above: Performed By: #### L 100.0100, L500.4100, L500.4050 #### [facility] [address] [place], [address] Monocytes/100 WBC (Bld) 6.2 % Normal 0-10 [facility] Comment on above: Performed By: #### L 100.0100, L500.4100, L500.4050 #### [facility] [address] [place], [address] Neutrophils/100 WBC (Bld) 73.1 % High 47-70 [facility] Comment on above: Performed By: #### L 100.0100, L500.4100, L500.4050 #### [facility] [address] [place], [address] Nucleated RBC (Bld) [#/Vol] 0 10*3/uL Normal 0-5 [facility] Comment on above: Performed By: #### L 100.0100, L500.4100, L500.4050 #### [facility] [address] [place], [address] Platelet mean volume (Bld) [Entitic vol] 9.7 fL Normal 6.2-12.0 [facility] Comment on above: Performed By: #### L 100.0100, L500.4100, L500.4050 #### [facility] [address] [place], [address] Platelets (Bld) [#/Vol] 280 10*3/uL Normal 150-450 [facility] Comment on above: Performed By: #### L 100.0100, L500.4100, L500.4050 #### [facility] [address] [place], [address] RBC (Bld) [#/Vol] 4.33 10*6/uL Normal 4.2-5.4 [facility] Comment on above: Performed By: #### L 100.0100, L500.4100, L500.4050 #### [facility] [address] [place], [address] RDW SD 44.1 fl High 35.1-43.9 [facility] Comment on above: Performed By: #### L 100.0100, L500.4100, L500.4050 #### [facility] [address] [place], [address] WBC (Bld) [#/Vol] 8.4 10*3/uL Normal 4.4-11.0 [facility] Comment on above: Performed By: #### L 100.0100, L500.4100, L500.4050 #### [facility] [address] [place], [address] Comprehensive Metabolic [facility] 12-07-2023 Albumin [Mass/Vol] 3.4 g/dL Normal 3.2-5.0 [facility] Comment on above: Performed By: #### L 100.0100, L500.4100, L500.4050 #### [facility] [address] [place], [address] Albumin/Globulin [Mass ratio] 0.7 {ratio} Low 0.9-2.4 [facility] Comment on above: Performed By: #### L 100.0100, L500.4100, L500.4050 #### [facility] [address] [place], [address] ALK P 86 U/L Normal 45-117 [facility] Comment on above: Performed By: #### L 100.0100, L500.4100, L500.4050 #### [facility] [address] [place], [address] ALT [Catalytic activity/Vol] 24 U/L Normal 13-56 [facility] Comment on above: Performed By: #### L 100.0100, L500.4100, L500.4050 #### [facility] [address] [place], [address] AST [Catalytic activity/Vol] 21 U/L Normal 15-37 [facility] Comment on above: Performed By: #### L 100.0100, L500.4100, L500.4050 #### [facility] [address] [place], [address] Bilirubin [Mass/Vol] 0.60 mg/dL Normal 0.20-1.00 [facility] Comment on above: Result Comment: For patients on eltrombopag therapy, use of Dimension [place] TBIL is not recommended. Performed By: #### L 100.0100, L500.4100, L500.4050 #### [facility] [address] [place], [address] BUN/CRE 19.8 RATIO Normal 10-20 [facility] Comment on above: Performed By: #### L 100.0100, L500.4100, L500.4050 #### [facility] [address] [place], [address] CA,Total 9.5 mg/dL Normal 8.5-10.1 [facility] Comment on above: Performed By: #### L 100.0100, L500.4100, L500.4050 #### [facility] [address] [place], [address] Chloride [Moles/Vol] 104 mmol/L Normal 98-107 [facility] Comment on above: Performed By: #### L 100.0100, L500.4100, L500.4050 #### [facility] [address] [place], [address] CO2 [Moles/Vol] 25.0 mmol/L Normal 21.0-32.0 [facility] Comment on above: Performed By: #### L 100.0100, L500.4100, L500.4050 #### [facility] [address] [place], [address] Creatinine [Mass/Vol] 1.16 mg/dL High 0.55-1.02 [facility] Comment on above: Result Comment: The validity of the calculated GFR GFRAA in patients over 70 years has not been determined. Clinical correlation is essential. Performed By: #### L 100.0100, L500.4100, L500.4050 #### [facility] [address] [place], [address] EST GFR - AA 59 mL/min Low >60 [facility] Comment on above: Result Comment: Afri can [place] GFR Calc Performed By: #### L 100.0100, L500.4100, L500.4050 #### [facility] [address] [place], [address] GAP 7 Normal 5-15 [facility] Comment on above: Performed By: #### L 100.0100, L500.4100, L500.4050 #### [facility] [address] [place], [address] GFR/1.73 sq M.predicted among non-blacks MDRD (S/P/Bld) [Vol rate/Area] 49 mL/min/{1.73_m2} Low >60 [facility] Comment on above: Result Comment: Non- GFR Calc Performed By: #### L 100.0100, L500.4100, L500.4050 #### [facility] [address] [place], [address] Globulin (S) [Mass/Vol] 4.6 g/dL High 2.2-4.2 [facility] Comment on above: Performed By: #### L 100.0100, L500.4100, L500.4050 #### [facility] [address] [place], [address] Glucose [Mass/Vol] 217 mg/dL High 74-106 [facility] Comment on above: Result Comment: Gluc ose result greater than or equal to 200 mg/dL suggests DIABETES MELLITUS per A.D.A. criteria. Performed By: #### L 100.0100, L500.4100, L500.4050 #### [facility] [address] [place], [address] Potassium [Moles/Vol] 4.7 mmol/L Normal 3.5-5.1 [facility] Comment on above: Performed By: #### L 100.0100, L500.4100, L500.4050 #### [facility] [address] [place], [address] Sodium [Moles/Vol] 136 mmol/L Normal 136-145 [facility] Comment on above: Performed By: #### L 100.0100, L500.4100, L500.4050 #### [facility] [address] [place], [address] T PROT 8.0 g/dL Normal 6.4-8.2 [facility] Comment on above: Performed By: #### L 100.0100, L500.4100, L500.4050 #### [facility] [address] [place], [address] Urea nitrogen [Mass/Vol] 23 mg/dL High 7-18 [facility] Comment on above: Performed By: #### L 100.0100, L500.4100, L500.4050 #### [facility] [address] [place], [address] Internal Medicine Office Vis iton 12-07-2023 Internal Medicine Office Visit [facility] [address] [place] [address] [place] [address] OFFICE VISIT Date of Service: 12/07/23 MR#: [id number] Acct: [id number] Name: JOSELINE ELLIS Rep #: [id number] : 1950 Provider: TERA Barnett Age/Sex: 73/F Location: [facility] [place] Status: Signed Intake Vital Signs 09/26/23 12:06 12/07/23 10:27 Height 5 ft 1 in 5 ft 1 in Weight: 196 lb 185 lb BMI 34.9 BP 144/70 H Blood Pressure Location Lt brachial Position Sitting Respiration 17 Pulse 70 57 L Pulse Source Monitor Temp 98.0 F Temp Source Temporal Pulse Oximetry (%) 95 96 Oxygen Delivery Method room air Intake Visit Reasons: JAIL FU Chief Complaint: JAIL FU Is patient in pain?: No Allergies fosinopril (From Monopril) Allergy (Unknown, Verified 12/07/23 10:20) Other pioglitazone Adverse Reaction (Verified 12/07/23 10:20) Other Medications ???Medication ???Instructions ???Recorded ???Confirmed ???Type diltiazem HCl 240 mg 240 mg PO DAILY heart 09/09/22 12/07/23 History capsule,extended release 24 hr (Cardizem CD) WOUND CARE #1 ea 10/06/22 12/07/23 Rx glimepiride 4 mg tablet 4 mg PO DAILY dm 04/07/23 12/07/23 History compress.stocking,kn ee,reg,lrg #2 ea 05/26/23 12/07/23 Rx amlodipine 10 mg tablet 10 mg PO DAILY BP #90 tabs 10/26/23 12/07/23 Rx apixaban 5 mg tablet 5 mg PO BID blood thinner #180 tabs 10/26/23 12/07/23 Rx ascorbic acid (vitamin C) 500 mg 500 mg PO DAILY vitamin #90 tabs 10/26/23 12/07/23 Rx tablet (Vitamin C) cholecalciferol (vitamin D3) 50 50 mcg PO DAILY vitamin #90 caps 10/26/23 12/07/23 Rx mcg (2,000 unit) capsule ferrous sulfate 325 mg (65 mg 325 mg PO DAILY Supplement #90 tabs 10/26/23 12/07/23 Rx iron) tablet metformin 1,000 mg tablet 1,000 mg PO BID DM #180 tabs 10/26/23 12/07/23 Rx multivitamin 1 tab PO DAILY SUPPLEMENT #90 tabs 10/26/23 12/07/23 Rx oxybutynin chloride 15 mg 15 mg PO BID bladder #180 tabs 10/26/23 12/07/23 Rx tablet,extended release 24 hr sertraline 100 mg tablet (Zoloft) 100 mg PO DAILY anxiety #90 tabs 10/26/23 12/07/23 Rx furosemide 20 mg tablet 20 mg PO DAILY #90 tabs 12/02/23 12/07/23 Rx metoprolol tartrate 100 mg tablet 100 mg PO BID #60 tabs 12/02/23 12/07/23 Rx acetaminophen 325 mg capsule 650 mg PO TID PRN Pain 12/07/23 12/07/23 History bacitracin zinc 500 unit/gram 1 applic topical TID #28.4 grams 12/09/23 Rx topical ointment Have you fallen in the past year?: Yes (1 ) [facility], [facility] Medical History (Updated 12/09/23 @ 23:54 by TERA Kamara) Screening-pulmonary TB History of cerebrovascular accident Chronic anticoagulation Bilateral leg ulcer Intertrigo Acute on chronic heart failure CKD (chronic kidney disease) Paroxysmal A-fib Diabetes mellitus Hypertension Elevated brain natriuretic peptide (BNP) level Stage 3b chronic kidney disease (CKD) Subtherapeutic international normalized ratio (INR) Chronic back pain Tachycardia Paroxysmal atrial fibrillation with RVR Atrial fib/flutter, transient Osteomyelitis of finger of right hand 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 without evidence of necrosis Abscess of right middle finger MRSA infection Acute kidney injury Bacteremia Finger infection Health care maintenance Flu vaccine need Urinary incontinence, overflow Burn injury of skin of finger Post-menopausal Chronic cough Irregular heartbeat Pancreatitis Weakness Depression Anxiety Alcohol use Arthritis Walker as ambulation aid Anemia Back pain Dietary restriction Former smoker CPAP (continuous positive airway pressure) dependence History of edema History of echocardiogram History of stress test Cardiology follow-up encounter Osteoporosis Preoperative evaluation to rule out surgical contraindication Atrial fibrillation COVID-19 vaccine series completed Venous insufficiency Paroxysmal atrial fibrillation Kidney disease Anxiety and depression Vision problems CVA (cerebral vascular accident) Hyperlipidemia Breast lump History of UTI Essential hypertension Non-rheumatic mitral valve stenosis Nonrheumatic aortic (valve) stenosis Overactive bladder Osteoarthritis DKA (diabetic ketoacidoses) Abnormal mammogram of right breast Depression with anxiety Surgical History (Updated 12/07/23 @ 10:22 by Shani Andrade LPN) History of hip surgery History of amputation of finger of right hand History of left elbow replacement History of hysterectomy History of carpal tunnel release History of back surgery Status post surgical amputation of finger of right hand Hx of colonoscopy History of left elbow replacement S/P hysterectomy S/P ORIF (open reduction internal fixation) fracture History (more content not included)... Normal [facility] Lipid Profileon 12-07-2023 Cholesterol [Mass/Vol] 250 mg/dL High 200 [facility] Comment on above: Result Comment: <200 mg/dL Desirable 200-240 mg/dL Borderline >240 mg/dL High Risk Performed By: #### L 100.0100, L500.4100, L500.4050 #### [facility] [address] [place], [address] Cholesterol in HDL [Mass/Vol] 49 mg/dL Normal [facility] Comment on above: Result Comment: The drugs N-Acetylcysteine and Metamizole may falsely depress this assay. Reference Range HDL <40 mg/dL Low HDL Cholesterol HDL >or= 60 mg/dL High HDL Cholesterol Performed By: #### L 100.0100, L500.4100, L500.4050 #### [facility] [address] [place], [address] Cholesterol in LDL [Mass/Vol] 161 mg/dL High 0-130 [facility] Comment on above: Performed By: #### L 100.0100, L500.4100, L500.4050 #### [facility] [address] [place], [address] Cholesterol in VLDL [Mass/Vol] 40 mg/dL Normal 5-40 [facility] Comment on above: Performed By: #### L 100.0100, L500.4100, L500.4050 #### [facility] [address] [place], [address] Triglyceride [Mass/Vol] 199 mg/dL Normal [facility] Comment on above: Result Comment: The drugs N-Acetylcysteine and Metamizole may falsely depress this assay. Serum Triglycerides Reference Interval Normal <150 mg/dL Borderline high 150 - 199 mg/dL High 200 - 499 mg/dL Very High > or = 500 mg/dL Performed By: #### L 100.0100, L500.4100, L500.4050 #### [facility] [address] [place], [address] .Auto Diffon 07-14-2023 Basophil, Absolute 0.0 10 3/mcL Normal 0.0-0.3 [facility] ([place]) Comment on above: Performed By: #### G FR, ANEU, CMP, PHOS, TROPHS, ADIFF, TSH, MG, CAION, CBC, PBNP #### [address] [address] Basophils/100 WBC (Bld) 0.4 % Normal 0.0-2.5 A [facility] ([place]) Comment on above: Performed By: #### G FR, ANEU, CMP, PHOS, TROPHS, ADIFF, TSH, MG, CAION, CBC, PBNP #### [address] [address] Eosinophil, Absolute 0.1 10 3/mcL Normal 0.0-0.7 [facility] ([place]) Comment on above: Performed By: #### G FR, ANEU, CMP, PHOS, TROPHS, ADIFF, TSH, MG, CAION, CBC, PBNP #### [address] [address] Eosinophils/100 WBC (Bld) 3.0 % Normal 0.0-6.0 [facility] ([place]) Comment on above: Performed By: #### G FR, ANEU, CMP, PHOS, TROPHS, ADIFF, TSH, MG, CAION, CBC, PBNP #### [address] [address] Lymphocyte, Absolute 0.9 10 3/mcL Normal 0.9-4.3 [facility] ([place]) Comment on above: Performed By: #### G FR, ANEU, CMP, PHOS, TROPHS, ADIFF, TSH, MG, CAION, CBC, PBNP #### [address] [address] Lymphocytes/100 WBC (Bld) 25.4 % Normal 20.0-40.0 [facility] ([place]) Comment on above: Performed By: #### G FR, ANEU, CMP, PHOS, TROPHS, ADIFF, TSH, MG, CAION, CBC, PBNP #### [address] [address] Monocyte, Absolute 0.3 10 3/mcL Normal 0.1-1.4 [facility] ([place]) Comment on above: Performed By: #### G FR, ANEU, CMP, PHOS, TROPHS, ADIFF, TSH, MG, CAION, CBC, PBNP #### [address] [address] Monocytes/100 WBC (Bld) 9.8 % Normal 2.0-13.0 [facility] ([place]) Comment on above: Performed By: #### G FR, ANEU, CMP, PHOS, TROPHS, ADIFF, TSH, MG, CAION, CBC, PBNP #### [address] [address] Neutrophils/100 WBC (Bld) 61.4 % Normal 50.0-75.0 [facility] ([place]) Comment on above: Performed By: #### G FR, ANEU, CMP, PHOS, TROPHS, ADIFF, TSH, MG, CAION, CBC, PBNP #### [address] [address] .GFRon 07-14-2023 GFR >60 Normal [facility] ([place]) Comment on above: Result Comment: GFR Population mean for , Non- Americans Ages 20-29 = 116 mL/min/1.73 sq.m. Ages 30-39 = 107 mL/min/1.73 sq.m. Ages 40-49 = 99 mL/min/1.73 sq.m. Ages 50-59 = 93 mL/min/1.73 sq.m. Ages 60-69 = 85 mL/min/1.73 sq.m. Ages 70+ = 75 mL/min/1.73 sq.m. Chronic Kidney Disease: Less than 60 mL/min/1.73 square meters End Stage Renal Disease: Less than 15 mL/min/1.73 square meters Performed By: #### G FR, ANEU, CMP, PHOS, TROPHS, ADIFF, TSH, MG, CAION, CBC, PBNP #### [address] [address] GFR Non- 53 ml/min/1.73sqm Normal [facility] ([place]) Comment on above: Result Comment: GFR Population mean for , Non- Americans Ages 20-29 = 116 mL/min/1.73 sq.m. Ages 30-39 = 107 mL/min/1.73 sq.m. Ages 40-49 = 99 mL/min/1.73 sq.m. Ages 50-59 = 93 mL/min/1.73 sq.m. Ages 60-69 = 85 mL/min/1.73 sq.m. Ages 70+ = 75 mL/min/1.73 sq.m. Chronic Kidney Disease: Less than 60 mL/min/1.73 square meters End Stage Renal Disease: Less than 15 mL/min/1.73 square meters Performed By: #### G FR, ANEU, CMP, PHOS, TROPHS, ADIFF, TSH, MG, CAION, CBC, PBNP #### [address] [address] .NEUABSon 07-14-2023 Neutrophil, Absolute 2.1 10 3/mcL Low 2.3-8.1 [facility] ([place]) Comment on above: Performed By: #### G FR, ANEU, CMP, PHOS, TROPHS, ADIFF, TSH, MG, CAION, CBC, PBNP #### [address] [address] BMPon 07-14-2023 BUN/Creatinine Ratio 35.0 ratio High 10.0-22.0 [facility] ([place]) Comment on above: Performed By: #### G FR, ANEU, CMP, PHOS, TROPHS, ADIFF, TSH, MG, CAION, CBC, PBNP #### [place] [address] Calcium [Mass/Vol] 9.2 mg/dL Normal 8.7-10.4 [facility] ([place]) Comment on above: Performed By: #### G FR, ANEU, CMP, PHOS, TROPHS, ADIFF, TSH, MG, CAION, CBC, PBNP #### [address] [address] Chloride [Moles/Vol] 104 mmol/L Normal 98-110 [facility] ([place]) Comment on above: Performed By: #### G FR, ANEU, CMP, PHOS, TROPHS, ADIFF, TSH, MG, CAION, CBC, PBNP #### [address] [address] CO2 [Moles/Vol] 28 mmol/L Normal 22-32 [facility] ([place]) Comment on above: Performed By: #### G FR, ANEU, CMP, PHOS, TROPHS, ADIFF, TSH, MG, CAION, CBC, PBNP #### [address] [address] Creatinine [Mass/Vol] 1.03 mg/dL Normal 0.50-1.20 [facility] ([place]) Comment on above: Performed By: #### G FR, ANEU, CMP, PHOS, TROPHS, ADIFF, TSH, MG, CAION, CBC, PBNP #### [address] [address] Electrolyte Balance 4.0 mEq/L Normal 4.0-15.0 [facility] ([place]) Comment on above: Performed By: #### G FR, ANEU, CMP, PHOS, TROPHS, ADIFF, TSH, MG, CAION, CBC, PBNP #### [address] [address] Glucose [Mass/Vol] 97 mg/dL Normal 82-115 [facility] ([place]) Comment on above: Performed By: #### G FR, ANEU, CMP, PHOS, TROPHS, ADIFF, TSH, MG, CAION, CBC, PBNP #### [address] [address] Potassium [Moles/Vol] 4.2 mmol/L Normal 3.5-5.0 [facility] ([place]) Comment on above: Result Comment: Spec imen slightly hemolyzed. Performed By: #### G FR, ANEU, CMP, PHOS, TROPHS, ADIFF, TSH, MG, CAION, CBC, PBNP #### [address] [address] Sodium [Moles/Vol] 136 mmol/L Normal 136-145 [facility] ([place]) Comment on above: Performed By: #### G FR, ANEU, CMP, PHOS, TROPHS, ADIFF, TSH, MG, CAION, CBC, PBNP #### [address] [address] Urea nitrogen [Mass/Vol] 36.0 mg/dL High 8.0-22.0 [facility] ([place]) Comment on above: Performed By: #### G FR, ANEU, CMP, PHOS, TROPHS, ADIFF, TSH, MG, CAION, CBC, PBNP #### [address] [address] CBCon 07-14-2023 Erythrocyte distribution width (RBC) [Ratio] 14.9 % Normal 11.5-15.5 [facility] ([place]) Comment on above: Performed By: #### G FR, ANEU, CMP, PHOS, TROPHS, ADIFF, TSH, MG, CAION, CBC, PBNP #### [place] [address] Hematocrit (Bld) [Volume fraction] 36.0 % Normal 34.0-46.0 [facility] ([place]) Comment on above: Performed By: #### G FR, ANEU, CMP, PHOS, TROPHS, ADIFF, TSH, MG, CAION, CBC, PBNP #### [place] [id number] Hgb 12.1 G/dL Normal 12.0-16.0 [facility] ([place]) Comment on above: Performed By: #### G FR, ANEU, CMP, PHOS, TROPHS, ADIFF, TSH, MG, CAION, CBC, PBNP #### [place] [id number] MCH (RBC) [Entitic mass] 28.6 pg Normal 27.0-33.0 [facility] ([place]) Comment on above: Performed By: #### G FR, ANEU, CMP, PHOS, TROPHS, ADIFF, TSH, MG, CAION, CBC, PBNP #### [place] [id number] MCHC 33.7 G/dL Normal 32.0-36.0 [facility] ([place]) Comment on above: Performed By: #### G FR, ANEU, CMP, PHOS, TROPHS, ADIFF, TSH, MG, CAION, CBC, PBNP #### [place] [id number] MCV (RBC) [Entitic vol] 84.8 fL Normal 80.0-99.0 A [facility] ([place]) Comment on above: Performed By: #### G FR, ANEU, CMP, PHOS, TROPHS, ADIFF, TSH, MG, CAION, CBC, PBNP #### [place] [address] Platelet 163 10 3/mcL Normal 150-450 [facility] ([place]) Comment on above: Performed By: #### G FR, ANEU, CMP, PHOS, TROPHS, ADIFF, TSH, MG, CAION, CBC, PBNP #### [facility] [address] [place] [address] Platelet mean volume (Bld) [Entitic vol] 7.9 fL Normal 6.6-10.5 [facility] ([place]) Comment on above: Performed By: #### G FR, ANEU, CMP, PHOS, TROPHS, ADIFF, TSH, MG, CAION, CBC, PBNP #### [place] [id number] [place] [id number] RBC 4.24 10 6/mcL Normal 4.10-5.30 [facility] ([place]) Comment on above: Performed By: #### G FR, ANEU, CMP, PHOS, TROPHS, ADIFF, TSH, MG, CAION, CBC, PBNP #### [address] [address] WBC 3.4 10 3/mcL Low 4.5-10.8 [facility] ([place]) Comment on above: Performed By: #### G FR, ANEU, CMP, PHOS, TROPHS, ADIFF, TSH, MG, CAION, CBC, PBNP #### [address] [address] LABORATORYOrdered By: Yvonne Liang on 07-14-2023 Blood Glucose Testing Reason Routine (07/14/23 12:43 PM) [facility] Glucose [Mass/Vol] 247 mg/dL High 82 - 115 mg/dL [facility] Blood Glucose Testing Reason Routine (07/14/23 11:39 AM) [facility] Glucose [Mass/Vol] 285 mg/dL High 82 - 115 mg/dL [facility] LABORATORYOrdered By: Zulay Bagley on 07-14-2023 Blood Glucose Testing Reason Routine (07/14/23 7:50 AM) [facility] Glucose [Mass/Vol] 120 mg/dL High 82 - 115 mg/dL [facility] LABORATORYOrdered By: SYSTEM SYSTEM on 07-14-2023 Basophils (Bld) [#/Vol] 0.0 103/mcL Normal 0.0 - 0.3 10^3/mcL AH Workflow SS Basophils/100 WBC (Bld) 0.4 % Normal 0.0 - 2.5 % AH Workflow SS Calcium [Mass/Vol] 9.2 mg/dL Normal 8.7 - 10. 4 mg/dL AH ADM SS Chloride [Moles/Vol] 104 mmol/L Normal 98 - 11 0 mEq/L ADM SS CO2 [Moles/Vol] 28 mmol/L Normal 22 - 32 mEq/L ADM SS Creatinine [Mass/Vol] 1.03 mg/dL Normal 0.50 - 1.20 mg/dL AH ADM SS Electrolyte Balance 4.0 mEq/L Normal 4.0 - 15 .0 mEq/L ADM SS Eosinophils (Bld) [#/Vol] 0.1 103/mcL Normal 0.0 - 0.7 10^3/mcL AH Workflow SS Eosinophils/100 WBC (Bld) 3.0 % Normal 0.0 - 6.0 % AH Workflow SS Erythrocyte distribution width (RBC) [Ratio] 14.9 % Normal 11.5 - 15.5 % AH Workflow SS GFR/1.73 sq M.predicted among blacks MDRD (S/P/Bld) [Vol rate/Area] ml/min/1.73sqm Invalid Interpretation Code ADM SS Comment on above: Interpretive Data: GFR Population mean for , Non- Americans Ages 20-29 = 116 mL/min/1.73 sq.m. Ages 30-39 = 107 mL/min/1.73 sq.m. Ages 40-49 = 99 mL/min/1.73 sq.m. Ages 50-59 = 93 mL/min/1.73 sq.m. Ages 60-69 = 85 mL/min/1.73 sq.m. Ages 70+ = 75 mL/min/1.73 sq.m. Chronic Kidney Disease: Less than 60 mL/min/1.73 square meters End Stage Renal Disease: Less than 15 mL/min/1.73 square meters GFR/1.73 sq M.predicted among non-blacks MDRD (S/P/Bld) [Vol rate/Area] 53 ml/min/1.73sqm Invalid Interpretation Code ADM SS Comment on above: Interpretive Data: GFR Population mean for , Non- Americans Ages 20-29 = 116 mL/min/1.73 sq.m. Ages 30-39 = 107 mL/min/1.73 sq.m. Ages 40-49 = 99 mL/min/1.73 sq.m. Ages 50-59 = 93 mL/min/1.73 sq.m. Ages 60-69 = 85 mL/min/1.73 sq.m. Ages 70+ = 75 mL/min/1.73 sq.m. Chronic Kidney Disease: Less than 60 mL/min/1.73 square meters End Stage Renal Disease: Less than 15 mL/min/1.73 square meters Glucose [Mass/Vol] 97 mg/dL Normal 82 - 115 mg/dL ADM SS Hematocrit (Bld) [Volume fraction] 36.0 % Normal 34.0 - 46.0 % AH Workflow SS Hemoglobin (Bld) [Mass/Vol] 12.1 G/dL Normal 12.0 - 16.0 G/dL AH Workflow SS Lymphocytes (Bld) [#/Vol] 0.9 103/mcL Normal 0.9 - 4.3 10^3/mcL AH Workflow SS Lymphocytes/100 WBC (Bld) 25.4 % Normal 20.0 - 40.0 % AH Workflow SS Magnesium [Mass/Vol] 2.0 mg/dL Normal 1.6 - 2 .4 mg/dL ADM SS MCH (RBC) [Entitic mass] 28.6 pg Normal 27. 0 - 33.0 pg AH Workflow SS MCHC 33.7 G/dL Normal 32.0 - 36.0 G/dL AH Workflow SS MCV (RBC) [Entitic vol] 84.8 fL Normal 80.0 - 99.0 fL AH Workflow SS Monocytes (Bld) [#/Vol] 0.3 103/mcL Normal 0.1 - 1.4 10^3/mcL AH Workflow SS Monocytes/100 WBC (Bld) 9.8 % Normal 2.0 - 13.0 % AH Workflow SS Neutrophils (Bld) [#/Vol] 2.1 103/mcL Low 2.3 - 8.1 10^3/mcL AH Workflow SS Neutrophils/100 WBC (Bld) 61.4 % Normal 50.0 - 75.0 % AH Workflow SS Platelet mean volume (Bld) [Entitic vol] 7.9 fL Normal 6.6 - 10.5 fL AH Workflow SS Platelets (Bld) [#/Vol] 163 103/mcL Normal 150 - 450 10^3/mcL AH Workflow SS Potassium [Moles/Vol] 4.2 mmol/L Normal 3.5 - 5.0 mEq/L ADM SS Comment on above: Result Comment: Spec imen slightly hemolyzed. RBC (Bld) [#/Vol] 4.24 106/mcL Normal 4.10 - 5.3 0 10^6/mcL AH Workflow SS Sodium [Moles/Vol] 136 mmol/L Normal 136 - 145 mEq/L ADM SS Urea nitrogen [Mass/Vol] 36.0 mg/dL High 8.0 - 22.0 mg/dL ADM SS Urea nitrogen/Creatinine [Mass ratio] 35.0 ratio High 10.0 - 22.0 ratio ADM SS WBC (Bld) [#/Vol] 3.4 103/mcL Low 4.5 - 10.8 10^3/mcL Workflow SS MGon 07-14-2023 Magnesium [Mass/Vol] 2.0 mg/dL Normal 1.6-2.4 [facility] ([place]) Comment on above: Performed By: #### G FR, ANEU, CMP, PHOS, TROPHS, ADIFF, TSH, MG, CAION, CBC, PBNP #### [address] [address] .Auto Diffon 07-13-2023 Basophil, Absolute 0.0 10 3/mcL Normal 0.0-0.3 [facility] ([place]) Comment on above: Performed By: #### G FR, ANEU, CMP, PHOS, TROPHS, ADIFF, TSH, MG, CAION, CBC, PBNP #### [address] [address] Basophils/100 WBC (Bld) 0.4 % Normal 0.0-2.5 A [facility] ([place]) Comment on above: Performed By: #### G FR, ANEU, CMP, PHOS, TROPHS, ADIFF, TSH, MG, CAION, CBC, PBNP #### [address] [address] Eosinophil, Absolute 0.0 10 3/mcL Normal 0.0-0.7 [facility] ([place]) Comment on above: Performed By: #### G FR, ANEU, CMP, PHOS, TROPHS, ADIFF, TSH, MG, CAION, CBC, PBNP #### [address] [address] Eosinophils/100 WBC (Bld) 1.2 % Normal 0.0-6.0 [facility] ([place]) Comment on above: Performed By: #### G FR, ANEU, CMP, PHOS, TROPHS, ADIFF, TSH, MG, CAION, CBC, PBNP #### [address] [address] Lymphocyte, Absolute 0.7 10 3/mcL Low 0.9-4.3 [facility] ([place]) Comment on above: Performed By: #### G FR, ANEU, CMP, PHOS, TROPHS, ADIFF, TSH, MG, CAION, CBC, PBNP #### [address] [address] Lymphocytes/100 WBC (Bld) 16.6 % Low 20.0-40.0 [facility] ([place]) Comment on above: Performed By: #### G FR, ANEU, CMP, PHOS, TROPHS, ADIFF, TSH, MG, CAION, CBC, PBNP #### [address] [address] Monocyte, Absolute 0.3 10 3/mcL Normal 0.1-1.4 [facility] ([place]) Comment on above: Performed By: #### G FR, ANEU, CMP, PHOS, TROPHS, ADIFF, TSH, MG, CAION, CBC, PBNP #### [address] [address] Monocytes/100 WBC (Bld) 8.3 % Normal 2.0-13.0 [facility] ([place]) Comment on above: Performed By: #### G FR, ANEU, CMP, PHOS, TROPHS, ADIFF, TSH, MG, CAION, CBC, PBNP #### [address] [address] Neutrophils/100 WBC (Bld) 73.5 % Normal 50.0-75.0 [facility] ([place]) Comment on above: Performed By: #### G FR, ANEU, CMP, PHOS, TROPHS, ADIFF, TSH, MG, CAION, CBC, PBNP #### [address] [address] .GFRon 07-13-2023 GFR 56 ml/min/1.73sqm Normal [facility] ([place]) Comment on above: Result Comment: GFR Population mean for , Non- Americans Ages 20-29 = 116 mL/min/1.73 sq.m. Ages 30-39 = 107 mL/min/1.73 sq.m. Ages 40-49 = 99 mL/min/1.73 sq.m. Ages 50-59 = 93 mL/min/1.73 sq.m. Ages 60-69 = 85 mL/min/1.73 sq.m. Ages 70+ = 75 mL/min/1.73 sq.m. Chronic Kidney Disease: Less than 60 mL/min/1.73 square meters End Stage Renal Disease: Less than 15 mL/min/1.73 square meters Performed By: #### G FR, ANEU, CMP, PHOS, TROPHS, ADIFF, TSH, MG, CAION, CBC, PBNP #### [address] [address] GFR Non- 46 ml/min/1.73sqm Normal [facility] ([place]) Comment on above: Result Comment: GFR Population mean for , Non- Americans Ages 20-29 = 116 mL/min/1.73 sq.m. Ages 30-39 = 107 mL/min/1.73 sq.m. Ages 40-49 = 99 mL/min/1.73 sq.m. Ages 50-59 = 93 mL/min/1.73 sq.m. Ages 60-69 = 85 mL/min/1.73 sq.m. Ages 70+ = 75 mL/min/1.73 sq.m. Chronic Kidney Disease: Less than 60 mL/min/1.73 square meters End Stage Renal Disease: Less than 15 mL/min/1.73 square meters Performed By: #### G FR, ANEU, CMP, PHOS, TROPHS, ADIFF, TSH, MG, CAION, CBC, PBNP #### [address] [address] .NEUABSon 07-13-2023 Neutrophil, Absolute 3.0 10 3/mcL Normal 2.3-8.1 [facility] ([place]) Comment on above: Performed By: #### G FR, ANEU, CMP, PHOS, TROPHS, ADIFF, TSH, MG, CAION, CBC, PBNP #### [place] [address] BMPon 07-13-2023 BUN/Creatinine Ratio 33.6 ratio High 10.0-22.0 [facility] ([place]) Comment on above: Performed By: #### G FR, ANEU, CMP, PHOS, TROPHS, ADIFF, TSH, MG, CAION, CBC, PBNP #### [place] [address] Calcium [Mass/Vol] 9.0 mg/dL Normal 8.7-10.4 [facility] ([place]) Comment on above: Performed By: #### G FR, ANEU, CMP, PHOS, TROPHS, ADIFF, TSH, MG, CAION, CBC, PBNP #### [place] [address] Chloride [Moles/Vol] 103 mmol/L Normal 98-110 [facility] ([place]) Comment on above: Performed By: #### G FR, ANEU, CMP, PHOS, TROPHS, ADIFF, TSH, MG, CAION, CBC, PBNP #### [place] [id number] CO2 [Moles/Vol] 25 mmol/L Normal 22-32 [facility] ([place]) Comment on above: Performed By: #### G FR, ANEU, CMP, PHOS, TROPHS, ADIFF, TSH, MG, CAION, CBC, PBNP #### [place] [address] Creatinine [Mass/Vol] 1.16 mg/dL Normal 0.50-1.20 [facility] ([place]) Comment on above: Performed By: #### G FR, ANEU, CMP, PHOS, TROPHS, ADIFF, TSH, MG, CAION, CBC, PBNP #### [address] [address] Electrolyte Balance 6.0 mEq/L Normal 4.0-15.0 [facility] ([place]) Comment on above: Performed By: #### G FR, ANEU, CMP, PHOS, TROPHS, ADIFF, TSH, MG, CAION, CBC, PBNP #### [place] [id number] Glucose [Mass/Vol] 93 mg/dL Normal 82-115 [facility] ([place]) Comment on above: Performed By: #### G FR, ANEU, CMP, PHOS, TROPHS, ADIFF, TSH, MG, CAION, CBC, PBNP #### [place] [address] Potassium [Moles/Vol] 4.1 mmol/L Normal 3.5-5.0 [facility] ([place]) Comment on above: Result Comment: Spec imen slightly hemolyzed. Performed By: #### G FR, ANEU, CMP, PHOS, TROPHS, ADIFF, TSH, MG, CAION, CBC, PBNP #### [place] [id number] Sodium [Moles/Vol] 134 mmol/L Low 136-145 [facility] ([place]) Comment on above: Performed By: #### G FR, ANEU, CMP, PHOS, TROPHS, ADIFF, TSH, MG, CAION, CBC, PBNP #### [place] [id number] Urea nitrogen [Mass/Vol] 39.0 mg/dL High 8.0-22.0 [facility] ([place]) Comment on above: Performed By: #### G FR, ANEU, CMP, PHOS, TROPHS, ADIFF, TSH, MG, CAION, CBC, PBNP #### [place] [id number] CBCon 07-13-2023 Erythrocyte distribution width (RBC) [Ratio] 15.0 % Normal 11.5-15.5 [facility] ([place]) Comment on above: Performed By: #### G FR, ANEU, CMP, PHOS, TROPHS, ADIFF, TSH, MG, CAION, CBC, PBNP #### [place] [id number] Hematocrit (Bld) [Volume fraction] 38.8 % Normal 34.0-46.0 [facility] ([place]) Comment on above: Performed By: #### G FR, ANEU, CMP, PHOS, TROPHS, ADIFF, TSH, MG, CAION, CBC, PBNP #### [place] [address] Hgb 13.0 G/dL Normal 12.0-16.0 [facility] ([place]) Comment on above: Performed By: #### G FR, ANEU, CMP, PHOS, TROPHS, ADIFF, TSH, MG, CAION, CBC, PBNP #### [place] [address] MCH (RBC) [Entitic mass] 28.8 pg Normal 27.0-33.0 [facility] ([place]) Comment on above: Performed By: #### G FR, ANEU, CMP, PHOS, TROPHS, ADIFF, TSH, MG, CAION, CBC, PBNP #### [place] [address] MCHC 33.5 G/dL Normal 32.0-36.0 [facility] ([place]) Comment on above: Performed By: #### G FR, ANEU, CMP, PHOS, TROPHS, ADIFF, TSH, MG, CAION, CBC, PBNP #### [place] [id number] MCV (RBC) [Entitic vol] 86.0 fL Normal 80.0-99.0 [facility] ([place]) Comment on above: Performed By: #### G FR, ANEU, CMP, PHOS, TROPHS, ADIFF, TSH, MG, CAION, CBC, PBNP #### [address] [address] Platelet 141 10 3/mcL Low 150-450 [facility] ([place]) Comment on above: Performed By: #### G FR, ANEU, CMP, PHOS, TROPHS, ADIFF, TSH, MG, CAION, CBC, PBNP #### [address] [address] Platelet mean volume (Bld) [Entitic vol] 8.4 fL Normal 6.6-10.5 [facility] ([place]) Comment on above: Performed By: #### G FR, ANEU, CMP, PHOS, TROPHS, ADIFF, TSH, MG, CAION, CBC, PBNP #### [place] [address] RBC 4.51 10 6/mcL Normal 4.10-5.30 [facility] ([place]) Comment on above: Performed By: #### G FR, ANEU, CMP, PHOS, TROPHS, ADIFF, TSH, MG, CAION, CBC, PBNP #### [address] [address] WBC 4.1 10 3/mcL Low 4.5-10.8 [facility] ([place]) Comment on above: Performed By: #### G FR, ANEU, CMP, PHOS, TROPHS, ADIFF, TSH, MG, CAION, CBC, PBNP #### [address] [address] LABORATORYOrdered By: SYSTEM SYSTEM on 07-13-2023 Basophils (Bld) [#/Vol] 0.0 103/mcL Normal 0.0 - 0.3 10^3/mcL AH Workflow SS Basophils/100 WBC (Bld) 0.4 % Normal 0.0 - 2.5 % AH Workflow SS Calcium [Mass/Vol] 9.0 mg/dL Normal 8.7 - 10. 4 mg/dL AH ADM SS Chloride [Moles/Vol] 103 mmol/L Normal 98 - 11 0 mEq/L AH ADM SS CO2 [Moles/Vol] 25 mmol/L Normal 22 - 32 mEq/L AH ADM SS Creatinine [Mass/Vol] 1.16 mg/dL Normal 0.50 - 1.20 mg/dL ADM SS Electrolyte Balance 6.0 mEq/L Normal 4.0 - 15 .0 mEq/L ADM SS Eosinophils (Bld) [#/Vol] 0.0 103/mcL Normal 0.0 - 0.7 10^3/mcL Workflow SS Eosinophils/100 WBC (Bld) 1.2 % Normal 0.0 - 6.0 % Workflow SS Erythrocyte distribution width (RBC) [Ratio] 15.0 % Normal 11.5 - 15.5 % Workflow SS GFR/1.73 sq M.predicted among blacks MDRD (S/P/Bld) [Vol rate/Area] 56 ml/min/1.73sqm Invalid Interpretation Code ADM Comment on above: Interpretive Data: GFR Population mean for , Non- Americans Ages 20-29 = 116 mL/min/1.73 sq.m. Ages 30-39 = 107 mL/min/1.73 sq.m. Ages 40-49 = 99 mL/min/1.73 sq.m. Ages 50-59 = 93 mL/min/1.73 sq.m. Ages 60-69 = 85 mL/min/1.73 sq.m. Ages 70+ = 75 mL/min/1.73 sq.m. Chronic Kidney Disease: Less than 60 mL/min/1.73 square meters End Stage Renal Disease: Less than 15 mL/min/1.73 square meters GFR/1.73 sq M.predicted among non-blacks MDRD (S/P/Bld) [Vol rate/Area] 46 ml/min/1.73sqm Invalid Interpretation Code [facility] Comment on above: Interpretive Data: GFR Population mean for , Non- Americans Ages 20-29 = 116 mL/min/1.73 sq.m. Ages 30-39 = 107 mL/min/1.73 sq.m. Ages 40-49 = 99 mL/min/1.73 sq.m. Ages 50-59 = 93 mL/min/1.73 sq.m. Ages 60-69 = 85 mL/min/1.73 sq.m. Ages 70+ = 75 mL/min/1.73 sq.m. Chronic Kidney Disease: Less than 60 mL/min/1.73 square meters End Stage Renal Disease: Less than 15 mL/min/1.73 square meters Glucose [Mass/Vol] 93 mg/dL Normal 82 - 115 mg/dL ADM SS Hematocrit (Bld) [Volume fraction] 38.8 % Normal 34.0 - 46.0 % AH Workflow SS Hemoglobin (Bld) [Mass/Vol] 13.0 G/dL Normal 12.0 - 16.0 G/dL AH Workflow SS Lymphocytes (Bld) [#/Vol] 0.7 103/mcL Low 0.9 - 4.3 10^3/mcL AH Workflow SS Lymphocytes/100 WBC (Bld) 16.6 % Low 20.0 - 40.0 % AH Workflow SS Magnesium [Mass/Vol] 2.0 mg/dL Normal 1.6 - 2 .4 mg/dL ADM SS MCH (RBC) [Entitic mass] 28.8 pg Normal 27. 0 - 33.0 pg AH Workflow SS MCHC 33.5 G/dL Normal 32.0 - 36.0 G/dL Workflow SS MCV (RBC) [Entitic vol] 86.0 fL Normal 80.0 - 99.0 fL AH Workflow SS Monocytes (Bld) [#/Vol] 0.3 103/mcL Normal 0.1 - 1.4 10^3/mcL AH Workflow SS Monocytes/100 WBC (Bld) 8.3 % Normal 2.0 - 13.0 % AH Workflow SS Neutrophils (Bld) [#/Vol] 3.0 103/mcL Normal 2.3 - 8.1 10^3/mcL AH Workflow SS Neutrophils/100 WBC (Bld) 73.5 % Normal 50.0 - 75.0 % AH Workflow SS Platelet mean volume (Bld) [Entitic vol] 8.4 fL Normal 6.6 - 10.5 fL Workflow SS Platelets (Bld) [#/Vol] 141 103/mcL Low 150 - 450 10^3/mcL AH Workflow SS Potassium [Moles/Vol] 4.1 mmol/L Normal 3.5 - 5.0 mEq/L ADM SS Comment on above: Result Comment: Spec imen slightly hemolyzed. RBC (Bld) [#/Vol] 4.51 106/mcL Normal 4.10 - 5.3 0 10^6/mcL AH Workflow SS Sodium [Moles/Vol] 134 mmol/L Low 136 - 145 mEq/L AH ADM SS Urea nitrogen [Mass/Vol] 39.0 mg/dL High 8.0 - 22.0 mg/dL AH ADM SS Urea nitrogen/Creatinine [Mass ratio] 33.6 ratio High 10.0 - 22.0 ratio AH ADM SS WBC (Bld) [#/Vol] 4.1 103/mcL Low 4.5 - 10.8 10^3/mcL AH Workflow SS MGon 07-13-2023 Magnesium [Mass/Vol] 2.0 mg/dL Normal 1.6-2.4 [facility] ([place]) Comment on above: Performed By: #### G FR, ANEU, CMP, PHOS, TROPHS, ADIFF, TSH, MG, CAION, CBC, PBNP #### [address] [address] .Auto Diffon 07-12-2023 Basophil, Absolute 0.0 10 3/mcL Normal 0.0-0.3 [facility] ([place]) Comment on above: Performed By: #### G FR, ANEU, CMP, PHOS, TROPHS, ADIFF, TSH, MG, CAION, CBC, PBNP #### [address] [address] Basophils/100 WBC (Bld) 0.5 % Normal 0.0-2.5 [facility] ([place]) Comment on above: Performed By: #### G FR, ANEU, CMP, PHOS, TROPHS, ADIFF, TSH, MG, CAION, CBC, PBNP #### [address] [address] Eosinophil, Absolute 0.0 10 3/mcL Normal 0.0-0.7 [facility] ([place]) Comment on above: Performed By: #### G FR, ANEU, CMP, PHOS, TROPHS, ADIFF, TSH, MG, CAION, CBC, PBNP #### [address] [address] Eosinophils/100 WBC (Bld) 0.5 % Normal 0.0-6.0 [facility] ([place]) Comment on above: Performed By: #### G FR, ANEU, CMP, PHOS, TROPHS, ADIFF, TSH, MG, CAION, CBC, PBNP #### [address] [address] Lymphocyte, Absolute 0.8 10 3/mcL Low 0.9-4.3 [facility] ([place]) Comment on above: Performed By: #### G FR, ANEU, CMP, PHOS, TROPHS, ADIFF, TSH, MG, CAION, CBC, PBNP #### [address] [address] Lymphocytes/100 WBC (Bld) 26.1 % Normal 20.0-40.0 [facility] ([place]) Comment on above: Performed By: #### G FR, ANEU, CMP, PHOS, TROPHS, ADIFF, TSH, MG, CAION, CBC, PBNP #### [address] [address] Monocyte, Absolute 0.3 10 3/mcL Normal 0.1-1.4 [facility] ([place]) Comment on above: Performed By: #### G FR, ANEU, CMP, PHOS, TROPHS, ADIFF, TSH, MG, CAION, CBC, PBNP #### [address] [address] Monocytes/100 WBC (Bld) 10.8 % Normal 2.0-13.0 A [facility] ([place]) Comment on above: Performed By: #### G FR, ANEU, CMP, PHOS, TROPHS, ADIFF, TSH, MG, CAION, CBC, PBNP #### [address] [address] Neutrophils/100 WBC (Bld) 62.1 % Normal 50.0-75.0 [facility] ([place]) Comment on above: Performed By: #### G FR, ANEU, CMP, PHOS, TROPHS, ADIFF, TSH, MG, CAION, CBC, PBNP #### [address] [address] .GFRon 07-12-2023 GFR Non- 39 ml/min/1.73sqm Normal [facility] ([place]) Comment on above: Result Comment: GFR Population mean for , Non- Americans Ages 20-29 = 116 mL/min/1.73 sq.m. Ages 30-39 = 107 mL/min/1.73 sq.m. Ages 40-49 = 99 mL/min/1.73 sq.m. Ages 50-59 = 93 mL/min/1.73 sq.m. Ages 60-69 = 85 mL/min/1.73 sq.m. Ages 70+ = 75 mL/min/1.73 sq.m. Chronic Kidney Disease: Less than 60 mL/min/1.73 square meters End Stage Renal Disease: Less than 15 mL/min/1.73 square meters Performed By: #### G FR, ANEU, CMP, PHOS, TROPHS, ADIFF, TSH, MG, CAION, CBC, PBNP #### [address] [address] GFR 47 ml/min/1.73sqm Normal [facility] ([place]) Comment on above: Result Comment: GFR Population mean for , Non- Americans Ages 20-29 = 116 mL/min/1.73 sq.m. Ages 30-39 = 107 mL/min/1.73 sq.m. Ages 40-49 = 99 mL/min/1.73 sq.m. Ages 50-59 = 93 mL/min/1.73 sq.m. Ages 60-69 = 85 mL/min/1.73 sq.m. Ages 70+ = 75 mL/min/1.73 sq.m. Chronic Kidney Disease: Less than 60 mL/min/1.73 square meters End Stage Renal Disease: Less than 15 mL/min/1.73 square meters Performed By: #### G FR, ANEU, CMP, PHOS, TROPHS, ADIFF, TSH, MG, CAION, CBC, PBNP #### [address] [address] .NEUABSon 07-12-2023 Neutrophil, Absolute 1.9 10 3/mcL Low 2.3-8.1 [facility] ([place]) Comment on above: Performed By: #### G FR, ANEU, CMP, PHOS, TROPHS, ADIFF, TSH, MG, CAION, CBC, PBNP #### [address] [address] BMPon 07-12-2023 BUN/Creatinine Ratio 21.5 ratio Normal 10.0-22.0 [facility] ([place]) Comment on above: Performed By: #### G FR, ANEU, CMP, PHOS, TROPHS, ADIFF, TSH, MG, CAION, CBC, PBNP #### [address] [address] Calcium [Mass/Vol] 9.0 mg/dL Normal 8.7-10.4 [facility] ([place]) Comment on above: Performed By: #### G FR, ANEU, CMP, PHOS, TROPHS, ADIFF, TSH, MG, CAION, CBC, PBNP #### [address] [address] Chloride [Moles/Vol] 101 mmol/L Normal 98-110 [facility] ([place]) Comment on above: Performed By: #### G FR, ANEU, CMP, PHOS, TROPHS, ADIFF, TSH, MG, CAION, CBC, PBNP #### [address] [address] CO2 [Moles/Vol] 22 mmol/L Normal 22-32 [facility] ([place]) Comment on above: Performed By: #### G FR, ANEU, CMP, PHOS, TROPHS, ADIFF, TSH, MG, CAION, CBC, PBNP #### [address] [address] Creatinine [Mass/Vol] 1.35 mg/dL High 0.50-1.20 [facility] ([place]) Comment on above: Performed By: #### G FR, ANEU, CMP, PHOS, TROPHS, ADIFF, TSH, MG, CAION, CBC, PBNP #### [address] [address] Electrolyte Balance 10.0 mEq/L Normal 4.0-15.0 [facility] ([place]) Comment on above: Performed By: #### G FR, ANEU, CMP, PHOS, TROPHS, ADIFF, TSH, MG, CAION, CBC, PBNP #### [address] [address] Glucose [Mass/Vol] 61 mg/dL Low 82-115 [facility] ([place]) Comment on above: Performed By: #### G FR, ANEU, CMP, PHOS, TROPHS, ADIFF, TSH, MG, CAION, CBC, PBNP #### [address] [address] Potassium [Moles/Vol] 3.8 mmol/L Normal 3.5-5.0 [facility] ([place]) Comment on above: Result Comment: Spec imen slightly hemolyzed. Performed By: #### G FR, ANEU, CMP, PHOS, TROPHS, ADIFF, TSH, MG, CAION, CBC, PBNP #### [place] [id number] Sodium [Moles/Vol] 133 mmol/L Low 136-145 [facility] ([place]) Comment on above: Performed By: #### G FR, ANEU, CMP, PHOS, TROPHS, ADIFF, TSH, MG, CAION, CBC, PBNP #### [place] [id number] Urea nitrogen [Mass/Vol] 29.0 mg/dL High 8.0-22.0 [facility] ([place]) Comment on above: Performed By: #### G FR, ANEU, CMP, PHOS, TROPHS, ADIFF, TSH, MG, CAION, CBC, PBNP #### [address] [address] CBCon 07-12-2023 Erythrocyte distribution width (RBC) [Ratio] 15.2 % Normal 11.5-15.5 [facility] ([place]) Comment on above: Performed By: #### G FR, ANEU, CMP, PHOS, TROPHS, ADIFF, TSH, MG, CAION, CBC, PBNP #### [address] [address] Hematocrit (Bld) [Volume fraction] 38.7 % Normal 34.0-46.0 [facility] ([place]) Comment on above: Performed By: #### G FR, ANEU, CMP, PHOS, TROPHS, ADIFF, TSH, MG, CAION, CBC, PBNP #### [place] [address] Hgb 12.8 G/dL Normal 12.0-16.0 [facility] ([place]) Comment on above: Performed By: #### G FR, ANEU, CMP, PHOS, TROPHS, ADIFF, TSH, MG, CAION, CBC, PBNP #### [place] [id number] MCH (RBC) [Entitic mass] 28.6 pg Normal 27.0-33.0 [facility] ([place]) Comment on above: Performed By: #### G FR, ANEU, CMP, PHOS, TROPHS, ADIFF, TSH, MG, CAION, CBC, PBNP #### [place] [id number] MCHC 33.2 G/dL Normal 32.0-36.0 [facility] ([place]) Comment on above: Performed By: #### G FR, ANEU, CMP, PHOS, TROPHS, ADIFF, TSH, MG, CAION, CBC, PBNP #### [place] [address] MCV (RBC) [Entitic vol] 86.2 fL Normal 80.0-99.0 A [facility] ([place]) Comment on above: Performed By: #### G FR, ANEU, CMP, PHOS, TROPHS, ADIFF, TSH, MG, CAION, CBC, PBNP #### [place] [address] Platelet 180 10 3/mcL Normal 150-450 [facility] ([place]) Comment on above: Performed By: #### G FR, ANEU, CMP, PHOS, TROPHS, ADIFF, TSH, MG, CAION, CBC, PBNP #### [place] [address] Platelet mean volume (Bld) [Entitic vol] 8.7 fL Normal 6.6-10.5 [facility] ([place]) Comment on above: Performed By: #### G FR, ANEU, CMP, PHOS, TROPHS, ADIFF, TSH, MG, CAION, CBC, PBNP #### [place] [address] RBC 4.49 10 6/mcL Normal 4.10-5.30 [facility] ([place]) Comment on above: Performed By: #### G FR, ANEU, CMP, PHOS, TROPHS, ADIFF, TSH, MG, CAION, CBC, PBNP #### [place] [address] WBC 3.1 10 3/mcL Low 4.5-10.8 [facility] ([place]) Comment on above: Performed By: #### G FR, ANEU, CMP, PHOS, TROPHS, ADIFF, TSH, MG, CAION, CBC, PBNP #### [place] [address] LABORATORYOrdered By: Blanka Gaston on 07-12-2023 Blood Glucose Interventions Administered food/juice (07/12/23 6:08 AM) [facility] LABORATORYOrdered By: SYSTEM SYSTEM on 07-12-2023 Basophils (Bld) [#/Vol] 0.0 103/mcL Normal 0.0 - 0.3 10^3/mcL Workflow SS Basophils/100 WBC (Bld) 0.5 % Normal 0.0 - 2.5 % Workflow SS Calcium [Mass/Vol] 9.0 mg/dL Normal 8.7 - 10. 4 mg/dL ADM SS Chloride [Moles/Vol] 101 mmol/L Normal 98 - 11 0 mEq/L ADM SS CO2 [Moles/Vol] 22 mmol/L Normal 22 - 32 mEq/L ADM SS Creatinine [Mass/Vol] 1.35 mg/dL High 0.50 - 1.20 mg/dL ADM SS Electrolyte Balance 10.0 mEq/L Normal 4.0 - 15 .0 mEq/L ADM SS Eosinophils (Bld) [#/Vol] 0.0 103/mcL Normal 0.0 - 0.7 10^3/mcL Workflow SS Eosinophils/100 WBC (Bld) 0.5 % Normal 0.0 - 6.0 % Workflow SS Erythrocyte distribution width (RBC) [Ratio] 15.2 % Normal 11.5 - 15.5 % [facility] GFR/1.73 sq M.predicted among blacks MDRD (S/P/Bld) [Vol rate/Area] 47 ml/min/1.73sqm Invalid Interpretation Code [facility] Comment on above: Interpretive Data: GFR Population mean for , Non- Americans Ages 20-29 = 116 mL/min/1.73 sq.m. Ages 30-39 = 107 mL/min/1.73 sq.m. Ages 40-49 = 99 mL/min/1.73 sq.m. Ages 50-59 = 93 mL/min/1.73 sq.m. Ages 60-69 = 85 mL/min/1.73 sq.m. Ages 70+ = 75 mL/min/1.73 sq.m. Chronic Kidney Disease: Less than 60 mL/min/1.73 square meters End Stage Renal Disease: Less than 15 mL/min/1.73 square meters GFR/1.73 sq M.predicted among non-blacks MDRD (S/P/Bld) [Vol rate/Area] 39 ml/min/1.73sqm Invalid Interpretation Code [facility] Comment on above: Interpretive Data: GFR Population mean for , Non- Americans Ages 20-29 = 116 mL/min/1.73 sq.m. Ages 30-39 = 107 mL/min/1.73 sq.m. Ages 40-49 = 99 mL/min/1.73 sq.m. Ages 50-59 = 93 mL/min/1.73 sq.m. Ages 60-69 = 85 mL/min/1.73 sq.m. Ages 70+ = 75 mL/min/1.73 sq.m. Chronic Kidney Disease: Less than 60 mL/min/1.73 square meters End Stage Renal Disease: Less than 15 mL/min/1.73 square meters Glucose [Mass/Vol] 61 mg/dL Low 82 - 115 mg/dL [facility] Hematocrit (Bld) [Volume fraction] 38.7 % Normal 34.0 - 46.0 % Workflow Hemoglobin (Bld) [Mass/Vol] 12.8 G/dL Normal 12.0 - 16.0 G/dL [facility] Lymphocytes (Bld) [#/Vol] 0.8 103/mcL Low 0.9 - 4.3 10^3/mcL AH Workflow SS Lymphocytes/100 WBC (Bld) 26.1 % Normal 20.0 - 40.0 % AH Workflow SS Magnesium [Mass/Vol] 2.2 mg/dL Normal 1.6 - 2 .4 mg/dL AH ADM SS MCH (RBC) [Entitic mass] 28.6 pg Normal 27. 0 - 33.0 pg AH Workflow SS MCHC 33.2 G/dL Normal 32.0 - 36.0 G/dL AH Workflow SS MCV (RBC) [Entitic vol] 86.2 fL Normal 80.0 - 99.0 fL AH Workflow SS Monocytes (Bld) [#/Vol] 0.3 103/mcL Normal 0.1 - 1.4 10^3/mcL AH Workflow SS Monocytes/100 WBC (Bld) 10.8 % Normal 2.0 - 13.0 % AH Workflow SS Neutrophils (Bld) [#/Vol] 1.9 103/mcL Low 2.3 - 8.1 10^3/mcL AH Workflow SS Neutrophils/100 WBC (Bld) 62.1 % Normal 50.0 - 75.0 % AH Workflow SS Platelet mean volume (Bld) [Entitic vol] 8.7 fL Normal 6.6 - 10.5 fL AH Workflow SS Platelets (Bld) [#/Vol] 180 103/mcL Normal 150 - 450 10^3/mcL AH Workflow SS Potassium [Moles/Vol] 3.8 mmol/L Normal 3.5 - 5.0 mEq/L AH ADM SS Comment on above: Result Comment: Spec imen slightly hemolyzed. RBC (Bld) [#/Vol] 4.49 106/mcL Normal 4.10 - 5.3 0 10^6/mcL AH Workflow SS Sodium [Moles/Vol] 133 mmol/L Low 136 - 145 mEq/L AH ADM SS Urea nitrogen [Mass/Vol] 29.0 mg/dL High 8.0 - 22.0 mg/dL AH ADM SS Urea nitrogen/Creatinine [Mass ratio] 21.5 ratio Normal 10.0 - 22.0 ratio AH ADM SS WBC (Bld) [#/Vol] 3.1 103/mcL Low 4.5 - 10.8 10^3/mcL AH Workflow SS MGon 07-12-2023 Magnesium [Mass/Vol] 2.2 mg/dL Normal 1.6-2.4 [facility] ([place]) Comment on above: Performed By: #### G FR, ANEU, CMP, PHOS, TROPHS, ADIFF, TSH, MG, CAION, CBC, PBNP #### [address] [address] .Auto Diffon 07-11-2023 Basophil, Absolute 0.0 10 3/mcL Normal 0.0-0.3 [facility] ([place]) Comment on above: Performed By: #### G FR, ANEU, CMP, PHOS, TROPHS, ADIFF, TSH, MG, CAION, CBC, PBNP #### [address] [address] Basophils/100 WBC (Bld) 0.3 % Normal 0.0-2.5 A [facility] ([place]) Comment on above: Performed By: #### G FR, ANEU, CMP, PHOS, TROPHS, ADIFF, TSH, MG, CAION, CBC, PBNP #### [address] [address] Eosinophil, Absolute 0.0 10 3/mcL Normal 0.0-0.7 [facility] ([place]) Comment on above: Performed By: #### G FR, ANEU, CMP, PHOS, TROPHS, ADIFF, TSH, MG, CAION, CBC, PBNP #### [address] [address] Eosinophils/100 WBC (Bld) 0.1 % Normal 0.0-6.0 [facility] ([place]) Comment on above: Performed By: #### G FR, ANEU, CMP, PHOS, TROPHS, ADIFF, TSH, MG, CAION, CBC, PBNP #### [address] [address] Lymphocyte, Absolute 0.9 10 3/mcL Normal 0.9-4.3 [facility] ([place]) Comment on above: Performed By: #### G FR, ANEU, CMP, PHOS, TROPHS, ADIFF, TSH, MG, CAION, CBC, PBNP #### [address] [address] Lymphocytes/100 WBC (Bld) 16.2 % Low 20.0-40.0 [facility] ([place]) Comment on above: Performed By: #### G FR, ANEU, CMP, PHOS, TROPHS, ADIFF, TSH, MG, CAION, CBC, PBNP #### [address] [address] Monocyte, Absolute 0.6 10 3/mcL Normal 0.1-1.4 [facility] ([place]) Comment on above: Performed By: #### G FR, ANEU, CMP, PHOS, TROPHS, ADIFF, TSH, MG, CAION, CBC, PBNP #### [address] [address] Monocytes/100 WBC (Bld) 10.9 % Normal 2.0-13.0 [facility] ([place]) Comment on above: Performed By: #### G FR, ANEU, CMP, PHOS, TROPHS, ADIFF, TSH, MG, CAION, CBC, PBNP #### [address] [address] Neutrophils/100 WBC (Bld) 72.5 % Normal 50.0-75.0 [facility] ([place]) Comment on above: Performed By: #### G FR, ANEU, CMP, PHOS, TROPHS, ADIFF, TSH, MG, CAION, CBC, PBNP #### [address] [address] Basophil, Absolute 0.0 10 3/mcL Normal 0.0-0.3 [facility] ([place]) Comment on above: Performed By: #### G FR, ANEU, CMP, PHOS, TROPHS, ADIFF, TSH, MG, CAION, CBC, PBNP #### [address] [address] Basophils/100 WBC (Bld) 0.2 % Normal 0.0-2.5 [facility] ([place]) Comment on above: Performed By: #### G FR, ANEU, CMP, PHOS, TROPHS, ADIFF, TSH, MG, CAION, CBC, PBNP #### [address] [address] Eosinophil, Absolute 0.0 10 3/mcL Normal 0.0-0.7 [facility] ([place]) Comment on above: Performed By: #### G FR, ANEU, CMP, PHOS, TROPHS, ADIFF, TSH, MG, CAION, CBC, PBNP #### [address] [address] Eosinophils/100 WBC (Bld) 0.0 % Normal 0.0-6.0 [facility] ([place]) Comment on above: Performed By: #### G FR, ANEU, CMP, PHOS, TROPHS, ADIFF, TSH, MG, CAION, CBC, PBNP #### [address] [address] Lymphocyte, Absolute 0.4 10 3/mcL Low 0.9-4.3 [facility] ([place]) Comment on above: Performed By: #### G FR, ANEU, CMP, PHOS, TROPHS, ADIFF, TSH, MG, CAION, CBC, PBNP #### [address] [address] Lymphocytes/100 WBC (Bld) 8.0 % Low 20.0-40.0 [facility] ([place]) Comment on above: Performed By: #### G FR, ANEU, CMP, PHOS, TROPHS, ADIFF, TSH, MG, CAION, CBC, PBNP #### [address] [address] Monocyte, Absolute 0.4 10 3/mcL Normal 0.1-1.4 [facility] ([place]) Comment on above: Performed By: #### G FR, ANEU, CMP, PHOS, TROPHS, ADIFF, TSH, MG, CAION, CBC, PBNP #### [address] [address] Monocytes/100 WBC (Bld) 8.3 % Normal 2.0-13.0 [facility] ([place]) Comment on above: Performed By: #### G FR, ANEU, CMP, PHOS, TROPHS, ADIFF, TSH, MG, CAION, CBC, PBNP #### [address] [address] Neutrophils/100 WBC (Bld) 83.5 % High 50.0-75.0 [facility] ([place]) Comment on above: Performed By: #### G FR, ANEU, CMP, PHOS, TROPHS, ADIFF, TSH, MG, CAION, CBC, PBNP #### [address] [address] .GFRon 07-11-2023 GFR >60 Normal [facility] ([place]) Comment on above: Result Comment: GFR Population mean for , Non- Americans Ages 20-29 = 116 mL/min/1.73 sq.m. Ages 30-39 = 107 mL/min/1.73 sq.m. Ages 40-49 = 99 mL/min/1.73 sq.m. Ages 50-59 = 93 mL/min/1.73 sq.m. Ages 60-69 = 85 mL/min/1.73 sq.m. Ages 70+ = 75 mL/min/1.73 sq.m. Chronic Kidney Disease: Less than 60 mL/min/1.73 square meters End Stage Renal Disease: Less than 15 mL/min/1.73 square meters Performed By: #### G FR, ANEU, CMP, PHOS, TROPHS, ADIFF, TSH, MG, CAION, CBC, PBNP #### [address] [address] GFR Non- 51 ml/min/1.73sqm Normal [facility] ([place]) Comment on above: Result Comment: GFR Population mean for , Non- Americans Ages 20-29 = 116 mL/min/1.73 sq.m. Ages 30-39 = 107 mL/min/1.73 sq.m. Ages 40-49 = 99 mL/min/1.73 sq.m. Ages 50-59 = 93 mL/min/1.73 sq.m. Ages 60-69 = 85 mL/min/1.73 sq.m. Ages 70+ = 75 mL/min/1.73 sq.m. Chronic Kidney Disease: Less than 60 mL/min/1.73 square meters End Stage Renal Disease: Less than 15 mL/min/1.73 square meters Performed By: #### G FR, ANEU, CMP, PHOS, TROPHS, ADIFF, TSH, MG, CAION, CBC, PBNP #### [address] [address] GFR Non- >60 Normal [facility] ([place]) Comment on above: Result Comment: GFR Population mean for , Non- Americans Ages 20-29 = 116 mL/min/1.73 sq.m. Ages 30-39 = 107 mL/min/1.73 sq.m. Ages 40-49 = 99 mL/min/1.73 sq.m. Ages 50-59 = 93 mL/min/1.73 sq.m. Ages 60-69 = 85 mL/min/1.73 sq.m. Ages 70+ = 75 mL/min/1.73 sq.m. Chronic Kidney Disease: Less than 60 mL/min/1.73 square meters End Stage Renal Disease: Less than 15 mL/min/1.73 square meters Performed By: #### G FR, ANEU, CMP, PHOS, TROPHS, ADIFF, TSH, MG, CAION, CBC, PBNP #### [address] [address] GFR >60 Normal [facility] ([place]) Comment on above: Result Comment: GFR Population mean for , Non- Americans Ages 20-29 = 116 mL/min/1.73 sq.m. Ages 30-39 = 107 mL/min/1.73 sq.m. Ages 40-49 = 99 mL/min/1.73 sq.m. Ages 50-59 = 93 mL/min/1.73 sq.m. Ages 60-69 = 85 mL/min/1.73 sq.m. Ages 70+ = 75 mL/min/1.73 sq.m. Chronic Kidney Disease: Less than 60 mL/min/1.73 square meters End Stage Renal Disease: Less than 15 mL/min/1.73 square meters Performed By: #### G FR, ANEU, CMP, PHOS, TROPHS, ADIFF, TSH, MG, CAION, CBC, PBNP #### [address] [address] .NEUABSon 07-11-2023 Neutrophil, Absolute 4.0 10 3/mcL Normal 2.3-8.1 [facility] ([place]) Comment on above: Performed By: #### G FR, ANEU, CMP, PHOS, TROPHS, ADIFF, TSH, MG, CAION, CBC, PBNP #### [place] [address] Neutrophil, Absolute 4.5 10 3/mcL Normal 2.3-8.1 [facility] ([place]) Comment on above: Performed By: #### G FR, ANEU, CMP, PHOS, TROPHS, ADIFF, TSH, MG, CAION, CBC, PBNP #### [place] [id number] A1Con 07-11-2023 HbA1c (Bld) [Mass fraction] 6.4 % High 4.0-6.0 [facility] ([place]) Comment on above: Performed By: #### G FR, ANEU, CMP, PHOS, TROPHS, ADIFF, TSH, MG, CAION, CBC, PBNP #### [place] [address] BMPon 07-11-2023 BUN/Creatinine Ratio 19.8 ratio Normal 10.0-22.0 [facility] ([place]) Comment on above: Performed By: #### G FR, ANEU, CMP, PHOS, TROPHS, ADIFF, TSH, MG, CAION, CBC, PBNP #### [place] [address] Calcium [Mass/Vol] 9.4 mg/dL Normal 8.7-10.4 [facility] ([place]) Comment on above: Performed By: #### G FR, ANEU, CMP, PHOS, TROPHS, ADIFF, TSH, MG, CAION, CBC, PBNP #### [place] [address] Chloride [Moles/Vol] 103 mmol/L Normal 98-110 [facility] ([place]) Comment on above: Performed By: #### G FR, ANEU, CMP, PHOS, TROPHS, ADIFF, TSH, MG, CAION, CBC, PBNP #### [address] [address] CO2 [Moles/Vol] 22 mmol/L Normal 22-32 [facility] ([place]) Comment on above: Performed By: #### G FR, ANEU, CMP, PHOS, TROPHS, ADIFF, TSH, MG, CAION, CBC, PBNP #### [address] [address] Creatinine [Mass/Vol] 1.06 mg/dL Normal 0.50-1.20 [facility] ([place]) Comment on above: Performed By: #### G FR, ANEU, CMP, PHOS, TROPHS, ADIFF, TSH, MG, CAION, CBC, PBNP #### [address] [address] Electrolyte Balance 6.0 mEq/L Normal 4.0-15.0 [facility] ([place]) Comment on above: Performed By: #### G FR, ANEU, CMP, PHOS, TROPHS, ADIFF, TSH, MG, CAION, CBC, PBNP #### [address] [address] Glucose [Mass/Vol] 82 mg/dL Normal 82-115 [facility] ([place]) Comment on above: Performed By: #### G FR, ANEU, CMP, PHOS, TROPHS, ADIFF, TSH, MG, CAION, CBC, PBNP #### [address] [address] Potassium [Moles/Vol] 3.8 mmol/L Normal 3.5-5.0 [facility] ([place]) Comment on above: Result Comment: Spec imen slightly hemolyzed. Performed By: #### G FR, ANEU, CMP, PHOS, TROPHS, ADIFF, TSH, MG, CAION, CBC, PBNP #### [address] [address] Sodium [Moles/Vol] 131 mmol/L Low 136-145 [facility] ([place]) Comment on above: Performed By: #### G FR, ANEU, CMP, PHOS, TROPHS, ADIFF, TSH, MG, CAION, CBC, PBNP #### [place] [address] Urea nitrogen [Mass/Vol] 21.0 mg/dL Normal 8.0-22.0 [facility] ([place]) Comment on above: Performed By: #### G FR, ANEU, CMP, PHOS, TROPHS, ADIFF, TSH, MG, CAION, CBC, PBNP #### [place] [address] CAIONon 07-11-2023 Calcium Ionized 1.06 mmol/L Low 1.12-1.32 [facility] ([place]) Comment on above: Performed By: #### G FR, ANEU, CMP, PHOS, TROPHS, ADIFF, TSH, MG, CAION, CBC, PBNP #### [place] [address] CBCon 07-11-2023 Erythrocyte distribution width (RBC) [Ratio] 14.7 % Normal 11.5-15.5 [facility] ([place]) Comment on above: Performed By: #### G FR, ANEU, CMP, PHOS, TROPHS, ADIFF, TSH, MG, CAION, CBC, PBNP #### [place] [address] Hematocrit (Bld) [Volume fraction] 39.6 % Normal 34.0-46.0 [facility] ([place]) Comment on above: Performed By: #### G FR, ANEU, CMP, PHOS, TROPHS, ADIFF, TSH, MG, CAION, CBC, PBNP #### [place] [id number] Hgb 13.4 G/dL Normal 12.0-16.0 [facility] ([place]) Comment on above: Performed By: #### G FR, ANEU, CMP, PHOS, TROPHS, ADIFF, TSH, MG, CAION, CBC, PBNP #### [place] [address] MCH (RBC) [Entitic mass] 28.9 pg Normal 27.0-33.0 [facility] ([place]) Comment on above: Performed By: #### G FR, ANEU, CMP, PHOS, TROPHS, ADIFF, TSH, MG, CAION, CBC, PBNP #### [address] [address] MCHC 33.8 G/dL Normal 32.0-36.0 [facility] ([place]) Comment on above: Performed By: #### G FR, ANEU, CMP, PHOS, TROPHS, ADIFF, TSH, MG, CAION, CBC, PBNP #### [place] [address] MCV (RBC) [Entitic vol] 85.4 fL Normal 80.0-99.0 [facility] ([place]) Comment on above: Performed By: #### G FR, ANEU, CMP, PHOS, TROPHS, ADIFF, TSH, MG, CAION, CBC, PBNP #### [place] [address] Platelet 193 10 3/mcL Normal 150-450 [facility] ([place]) Comment on above: Performed By: #### G FR, ANEU, CMP, PHOS, TROPHS, ADIFF, TSH, MG, CAION, CBC, PBNP #### [place] [address] Platelet mean volume (Bld) [Entitic vol] 8.1 fL Normal 6.6-10.5 [facility] ([place]) Comment on above: Performed By: #### G FR, ANEU, CMP, PHOS, TROPHS, ADIFF, TSH, MG, CAION, CBC, PBNP #### [place] [address] RBC 4.64 10 6/mcL Normal 4.10-5.30 [facility] ([place]) Comment on above: Performed By: #### G FR, ANEU, CMP, PHOS, TROPHS, ADIFF, TSH, MG, CAION, CBC, PBNP #### [place] [address] WBC 5.6 10 3/mcL Normal 4.5-10.8 [facility] ([place]) Comment on above: Performed By: #### G FR, ANEU, CMP, PHOS, TROPHS, ADIFF, TSH, MG, CAION, CBC, PBNP #### [place] [id number] Erythrocyte distribution width (RBC) [Ratio] 15.0 % Normal 11.5-15.5 [facility] ([place]) Comment on above: Performed By: #### G FR, ANEU, CMP, PHOS, TROPHS, ADIFF, TSH, MG, CAION, CBC, PBNP #### [place] [id number] Hematocrit (Bld) [Volume fraction] 40.2 % Normal 34.0-46.0 [facility] ([place]) Comment on above: Performed By: #### G FR, ANEU, CMP, PHOS, TROPHS, ADIFF, TSH, MG, CAION, CBC, PBNP #### [place] [address] Hgb 13.4 G/dL Normal 12.0-16.0 [facility] ([place]) Comment on above: Performed By: #### G FR, ANEU, CMP, PHOS, TROPHS, ADIFF, TSH, MG, CAION, CBC, PBNP #### [place] [id number] MCH (RBC) [Entitic mass] 28.9 pg Normal 27.0-33.0 [facility] ([place]) Comment on above: Performed By: #### G FR, ANEU, CMP, PHOS, TROPHS, ADIFF, TSH, MG, CAION, CBC, PBNP #### [place] [id number] MCHC 33.4 G/dL Normal 32.0-36.0 [facility] ([place]) Comment on above: Performed By: #### G FR, ANEU, CMP, PHOS, TROPHS, ADIFF, TSH, MG, CAION, CBC, PBNP #### [place] [id number] MCV (RBC) [Entitic vol] 86.6 fL Normal 80.0-99.0 [facility] ([place]) Comment on above: Performed By: #### G FR, ANEU, CMP, PHOS, TROPHS, ADIFF, TSH, MG, CAION, CBC, PBNP #### [address] [address] Platelet 195 10 3/mcL Normal 150-450 [facility] ([place]) Comment on above: Performed By: #### G FR, ANEU, CMP, PHOS, TROPHS, ADIFF, TSH, MG, CAION, CBC, PBNP #### [address] [address] Platelet mean volume (Bld) [Entitic vol] 7.9 fL Normal 6.6-10.5 [facility] ([place]) Comment on above: Performed By: #### G FR, ANEU, CMP, PHOS, TROPHS, ADIFF, TSH, MG, CAION, CBC, PBNP #### [place] [id number] RBC 4.64 10 6/mcL Normal 4.10-5.30 [facility] ([place]) Comment on above: Performed By: #### G FR, ANEU, CMP, PHOS, TROPHS, ADIFF, TSH, MG, CAION, CBC, PBNP #### [address] [address] WBC 5.4 10 3/mcL Normal 4.5-10.8 [facility] ([place]) Comment on above: Performed By: #### G FR, ANEU, CMP, PHOS, TROPHS, ADIFF, TSH, MG, CAION, CBC, PBNP #### [address] [address] CMPon 07-11-2023 Albumin Level 3.6 G/dL Normal 3.2-4.8 [facility] ([place]) Comment on above: Performed By: #### G FR, ANEU, CMP, PHOS, TROPHS, ADIFF, TSH, MG, CAION, CBC, PBNP #### [place] [id number] Albumin/Globulin [Mass ratio] 0.9 {ratio} Normal 0.9-1.6 [facility] ([place]) Comment on above: Performed By: #### G FR, ANEU, CMP, PHOS, TROPHS, ADIFF, TSH, MG, CAION, CBC, PBNP #### [address] [address] ALP [Catalytic activity/Vol] 82 U/L Normal 38-126 [facility] ([place]) Comment on above: Performed By: #### G FR, ANEU, CMP, PHOS, TROPHS, ADIFF, TSH, MG, CAION, CBC, PBNP #### [address] [address] ALT [Catalytic activity/Vol] 29 U/L Normal 10-49 [facility] ([place]) Comment on above: Performed By: #### G FR, ANEU, CMP, PHOS, TROPHS, ADIFF, TSH, MG, CAION, CBC, PBNP #### [place] [id number] AST [Catalytic activity/Vol] 43 U/L High 8-34 [facility] ([place]) Comment on above: Performed By: #### G FR, ANEU, CMP, PHOS, TROPHS, ADIFF, TSH, MG, CAION, CBC, PBNP #### [address] [address] Bili Total 0.40 mg/dL Normal 0.20-1.20 [facility] ([place]) Comment on above: Result Comment: Use of this assay is not recommended for patients undergoing treatment with eltrombopag due to the potential for falsely elevated results. Performed By: #### G FR, ANEU, CMP, PHOS, TROPHS, ADIFF, TSH, MG, CAION, CBC, PBNP #### [place] [id number] BUN/Creatinine Ratio 16.7 ratio Normal 10.0-22.0 [facility] ([place]) Comment on above: Performed By: #### G FR, ANEU, CMP, PHOS, TROPHS, ADIFF, TSH, MG, CAION, CBC, PBNP #### [address] [address] Calcium [Mass/Vol] 9.4 mg/dL Normal 8.7-10.4 [facility] ([place]) Comment on above: Performed By: #### G FR, ANEU, CMP, PHOS, TROPHS, ADIFF, TSH, MG, CAION, CBC, PBNP #### [place] [address] Chloride [Moles/Vol] 102 mmol/L Normal 98-110 [facility] ([place]) Comment on above: Performed By: #### G FR, ANEU, CMP, PHOS, TROPHS, ADIFF, TSH, MG, CAION, CBC, PBNP #### [place] [address] CO2 [Moles/Vol] 21 mmol/L Low 22-32 [facility] ([place]) Comment on above: Performed By: #### G FR, ANEU, CMP, PHOS, TROPHS, ADIFF, TSH, MG, CAION, CBC, PBNP #### [place] [address] Creatinine [Mass/Vol] 0.84 mg/dL Normal 0.50-1.20 [facility] ([place]) Comment on above: Performed By: #### G FR, ANEU, CMP, PHOS, TROPHS, ADIFF, TSH, MG, CAION, CBC, PBNP #### [place] [address] Electrolyte Balance 8.0 mEq/L Normal 4.0-15.0 [facility] ([place]) Comment on above: Performed By: #### G FR, ANEU, CMP, PHOS, TROPHS, ADIFF, TSH, MG, CAION, CBC, PBNP #### [place] [id number] Globulin 4.0 G/dL High 1.5-3.8 [facility] ([place]) Comment on above: Performed By: #### G FR, ANEU, CMP, PHOS, TROPHS, ADIFF, TSH, MG, CAION, CBC, PBNP #### [place] [address] Glucose [Mass/Vol] 132 mg/dL High 82-115 [facility] ([place]) Comment on above: Performed By: #### G FR, ANEU, CMP, PHOS, TROPHS, ADIFF, TSH, MG, CAION, CBC, PBNP #### [address] [address] Potassium [Moles/Vol] 3.9 mmol/L Normal 3.5-5.0 [facility] ([place]) Comment on above: Result Comment: Spec imen slightly hemolyzed. Performed By: #### G FR, ANEU, CMP, PHOS, TROPHS, ADIFF, TSH, MG, CAION, CBC, PBNP #### [address] [address] Sodium [Moles/Vol] 131 mmol/L Low 136-145 [facility] ([place]) Comment on above: Performed By: #### G FR, ANEU, CMP, PHOS, TROPHS, ADIFF, TSH, MG, CAION, CBC, PBNP #### [address] [address] Total Protein 7.6 G/dL Normal 5.7-8.2 [facility] ([place]) Comment on above: Result Comment: No te - New Reference Range in effect 19 Performed By: #### G FR, ANEU, CMP, PHOS, TROPHS, ADIFF, TSH, MG, CAION, CBC, PBNP #### [address] [address] Urea nitrogen [Mass/Vol] 14.0 mg/dL Normal 8.0-22.0 [facility] ([place]) Comment on above: Performed By: #### G FR, ANEU, CMP, PHOS, TROPHS, ADIFF, TSH, MG, CAION, CBC, PBNP #### [address] [address] CRPon 07-11-2023 C-Reactive Protein 4.0 mg/dL High 0.0-1.0 [facility] ([place]) Comment on above: Result Comment: No te - New Reference Range in effect 20 Performed By: #### G FR, ANEU, CMP, PHOS, TROPHS, ADIFF, TSH, MG, CAION, CBC, PBNP #### [place] [id number] CVFLURVon 07-11-2023 FLU A PCR Positive Abnormal Negative [facility] ([place]) Comment on above: Result Comment: This organism causes a reportable disease. Infection Control has been notified. Results have been reported to the [facility]. Notes [id number] Performed By: #### G FR, ANEU, CMP, PHOS, TROPHS, ADIFF, TSH, MG, CAION, CBC, PBNP #### [place] [id number] FLU B PCR Negative Normal Negative [facility] ([place]) Comment on above: Result Comment: Note s [id number] Performed By: #### G FR, ANEU, CMP, PHOS, TROPHS, ADIFF, TSH, MG, CAION, CBC, PBNP #### [place] [id number] RSV PCR Negative Normal Negative [facility] ([place]) Comment on above: Result Comment: [place] [id number] Performed By: #### G FR, ANEU, CMP, PHOS, TROPHS, ADIFF, TSH, MG, CAION, CBC, PBNP #### [place] [address] SARS-CoV-2 (COVID-19) RNA ADE+probe Ql (Unsp spec) Negative Normal Negative [facility] ([place]) Comment on above: Result Comment: Note s [id number] This test has been authorized by FDA under an EUA for use by authorized laboratories and has not been FDA cleared or approved. Results from the Xpert Xpress SARS-CoV-2/Flu/RSV or Xpert Xpress SARS-CoV-2 only test should be correlated with the clinical history, epidemiological data, and other data available to the clinician evaluating the patient. Performance of the Xpert Xpress SARS-CoV-2/Flu/RSV or Xpert Xpress SARS-CoV-2 only test has only been established in nasopharyngeal swab specimens. Erroneous test results might occur from improper specimen collection; failure to follow the recommended sample collection, handling, and storage procedures; technical error; or sample mix-up.False negative results may occur if virus is present at levels below the analytical limit of detection. Viral nucleic acid may persist in vivo, independent of virus viability. Detection of analyte target(s) does not imply that the corresponding virus(es) are infectious or are the causative agents for clinical symptoms.Recent patient exposure to FluMist or other live attenuated influenza vaccines may cause inaccurate positive results. Performed By: #### G FR, ANEU, CMP, PHOS, TROPHS, ADIFF, TSH, MG, CAION, CBC, PBNP #### [address] [address] ESRon 07-11-2023 Erythrocyte Sed Rate 62 mm/hr High 0-30 [facility] ([place]) Comment on above: Performed By: #### G FR, ANEU, CMP, PHOS, TROPHS, ADIFF, TSH, MG, CAION, CBC, PBNP #### [address] [address] LABORATORYOrdered By: Joseph Ibrahim on 07-11-2023 Cholesterol [Mass/Vol] 259 mg/dL High 50 - 199 mg/dL [facility] SS Comment on above: Interpretive Data: C holesterol Reference Interval: Less than 200 Desirable 200-239 Borderline high risk 240 and above High risk Cholesterol in HDL [Mass/Vol] 46 mg/dL Normal 40 - 59 mg/dL ADM SS Cholesterol in LDL [Mass/Vol] 184 mg/dL High 0 - 129 mg/dL AD[facility] SS Triglyceride [Mass/Vol] 147 mg/dL Normal 3 - 149 mg/dL ADM SS LABORATORYOrdered By: SYSTEM SYSTEM on 07-11-2023 HbA1c (Bld) [Mass fraction] 6.4 % High 4.0 - 6.0 % Auto [facility] SS LIPIDon 07-11-2023 Cholesterol [Mass/Vol] 259 mg/dL High 50-199 [facility] ([place]) Comment on above: Result Comment: Chol esterol Reference Interval: Less than 200 Desirable 200-239 Borderline high risk 240 and above High risk Performed By: #### G FR, ANEU, CMP, PHOS, TROPHS, ADIFF, TSH, MG, CAION, CBC, PBNP #### [address] [address] Cholesterol in HDL [Mass/Vol] 46 mg/dL Normal 40-59 [facility] ([place]) Comment on above: Performed By: #### G FR, ANEU, CMP, PHOS, TROPHS, ADIFF, TSH, MG, CAION, CBC, PBNP #### [address] [address] Cholesterol in LDL [Mass/Vol] 184 mg/dL High 0-129 [facility] ([place]) Comment on above: Performed By: #### G FR, ANEU, CMP, PHOS, TROPHS, ADIFF, TSH, MG, CAION, CBC, PBNP #### [address] [address] Triglyceride [Mass/Vol] 147 mg/dL Normal 3-149 [facility] ([place]) Comment on above: Performed By: #### G FR, ANEU, CMP, PHOS, TROPHS, ADIFF, TSH, MG, CAION, CBC, PBNP #### [address] [address] MGon 07-11-2023 Magnesium [Mass/Vol] 2.6 mg/dL High 1.6-2.4 [facility] ([place]) Comment on above: Performed By: #### G FR, ANEU, CMP, PHOS, TROPHS, ADIFF, TSH, MG, CAION, CBC, PBNP #### [address] [address] Magnesium [Mass/Vol] 1.5 mg/dL Low 1.6-2.4 [facility] ([place]) Comment on above: Performed By: #### G FR, ANEU, CMP, PHOS, TROPHS, ADIFF, TSH, MG, CAION, CBC, PBNP #### [address] [address] MRSAPCRon 07-11-2023 MRSA (PCR) Detected Abnormal Not Detected [facility] ([place]) Comment on above: Result Comment: Note s [id number] Performed By: #### G FR, ANEU, CMP, PHOS, TROPHS, ADIFF, TSH, MG, CAION, CBC, PBNP #### [place] [address] MRSA PCR Int Normal [facility] ([place]) Comment on above: Result Comment: Stap h aureus DNA detected by Real-Time Polymerase Chain Reaction (PCR). Organism viability can not be determined since free bacterial DNA may persist in the absence of viable organisms. As with all PCR based in vitro diagnostic tests, extremely low levels of target below the limit of detection of the assay may be detected, but results may not be reproducible, and the clinical significance unknown. Infection control will be notified. See Below Performed By: #### G FR, ANEU, CMP, PHOS, TROPHS, ADIFF, TSH, MG, CAION, CBC, PBNP #### [place] [address] PBNPon 07-11-2023 Natriuretic peptide B (Bld) [Mass/Vol] 8349 pg/mL High 0-900 [facility] ([place]) Comment on above: Result Comment: NT-p roBNP results of less than 300 pg/mL effectively rules out acute congestive heart failure with 99% negative predictive value. Performed By: #### G FR, ANEU, CMP, PHOS, TROPHS, ADIFF, TSH, MG, CAION, CBC, PBNP #### [address] 07-11-2023 Phosphate [Mass/Vol] 3.6 mg/dL Normal 2.4-5.1 [facility] ([place]) Comment on above: Result Comment: No te - New Reference Range in effect 19 Performed By: #### G FR, ANEU, CMP, PHOS, TROPHS, ADIFF, TSH, MG, CAION, CBC, PBNP #### [address] 07-11-2023 Troponin I High Sensitivity 24.62 ng/L Normal 0.00-34.00 [facility] ([place]) Comment on above: Performed By: #### G FR, ANEU, CMP, PHOS, TROPHS, ADIFF, TSH, MG, CAION, CBC, PBNP #### [place] [address] TSHon 07-11-2023 TSH 1.368 mIU/mL Normal 0.550-4.780 [facility] ([place]) Comment on above: Result Comment: No te - New Reference Range in effect 19 Performed By: #### G FR, ANEU, CMP, PHOS, TROPHS, ADIFF, TSH, MG, CAION, CBC, PBNP #### [place] [id number] UAon 07-11-2023 Color (U) Yellow Normal [facility] ([place]) Comment on above: Performed By: #### G FR, ANEU, CMP, PHOS, TROPHS, ADIFF, TSH, MG, CAION, CBC, PBNP #### [place] [address] Glucose (U) [Mass/Vol] Negative Normal Negative [facility] ([place]) Comment on above: Performed By: #### G FR, ANEU, CMP, PHOS, TROPHS, ADIFF, TSH, MG, CAION, CBC, PBNP #### [place] [address] Ketones Ql (U) Trace Normal Neg-Trace [facility] ([place]) Comment on above: Performed By: #### G FR, ANEU, CMP, PHOS, TROPHS, ADIFF, TSH, MG, CAION, CBC, PBNP #### [place] [address] UA Appear Clear Normal Clear [facility] ([place]) Comment on above: Performed By: #### G FR, ANEU, CMP, PHOS, TROPHS, ADIFF, TSH, MG, CAION, CBC, PBNP #### [place] [id number] UA Blood Moderate Abnormal Neg-Trace [facility] ([place]) Comment on above: Performed By: #### G FR, ANEU, CMP, PHOS, TROPHS, ADIFF, TSH, MG, CAION, CBC, PBNP #### [place] [address] UA Leuk Est Negative Normal Negative [facility] ([place]) Comment on above: Performed By: #### G FR, ANEU, CMP, PHOS, TROPHS, ADIFF, TSH, MG, CAION, CBC, PBNP #### [address] [address] UA Nitrite Negative Normal Negative [facility] ([place]) Comment on above: Performed By: #### G FR, ANEU, CMP, PHOS, TROPHS, ADIFF, TSH, MG, CAION, CBC, PBNP #### [place] [address] UA pH 5.5 Normal 5.0 - 8.0 [facility] ([place]) Comment on above: Performed By: #### G FR, ANEU, CMP, PHOS, TROPHS, ADIFF, TSH, MG, CAION, CBC, PBNP #### [place] [address] UA Protein 100 mg/dL Abnormal Negative [facility] ([place]) Comment on above: Performed By: #### G FR, ANEU, CMP, PHOS, TROPHS, ADIFF, TSH, MG, CAION, CBC, PBNP #### [address] [address] UA Spec Grav 1.015 Normal 1.006-1.029 [facility] ([place]) Comment on above: Performed By: #### G FR, ANEU, CMP, PHOS, TROPHS, ADIFF, TSH, MG, CAION, CBC, PBNP #### [place] [address] UA Specimen Type Void Normal [facility] ([place]) Comment on above: Performed By: #### G FR, ANEU, CMP, PHOS, TROPHS, ADIFF, TSH, MG, CAION, CBC, PBNP #### [address] [address] UA Urobilinogen 0.2 E.U./dL Normal 0.2-1.0 [facility] ([place]) Comment on above: Performed By: #### G FR, ANEU, CMP, PHOS, TROPHS, ADIFF, TSH, MG, CAION, CBC, PBNP #### [address] [address] Urobilinogen (U) [Mass/Vol] Negative Normal Neg-Trace [facility] ([place]) Comment on above: Performed By: #### G FR, ANEU, CMP, PHOS, TROPHS, ADIFF, TSH, MG, CAION, CBC, PBNP #### [address] [address] UAMICon 07-11-2023 UA Bacteria 2+ /hpf Abnormal Negative [facility] ([place]) Comment on above: Performed By: #### G FR, ANEU, CMP, PHOS, TROPHS, ADIFF, TSH, MG, CAION, CBC, PBNP #### [address] [address] UA Mucous 1+ /hpf Normal [facility] ([place]) Comment on above: Performed By: #### G FR, ANEU, CMP, PHOS, TROPHS, ADIFF, TSH, MG, CAION, CBC, PBNP #### [place] [address] UA RBC 3-5 Abnormal 0-2 [facility] ([place]) Comment on above: Performed By: #### G FR, ANEU, CMP, PHOS, TROPHS, ADIFF, TSH, MG, CAION, CBC, PBNP #### [address] [address] UA Squam Epithelial Negative Normal 0-20 [facility] ([place]) Comment on above: Performed By: #### G FR, ANEU, CMP, PHOS, TROPHS, ADIFF, TSH, MG, CAION, CBC, PBNP #### [address] [address] UA WBC Rare Normal 0-5 [facility] ([place]) Comment on above: Performed By: #### G FR, ANEU, CMP, PHOS, TROPHS, ADIFF, TSH, MG, CAION, CBC, PBNP #### [place] [address] XR CHEST 1 VIEWon 07-11-2023 XR CHEST 1 VIEW ORIGINAL EXAMINATION: ONE XRAY VIEW OF THE CHEST07/10/2023 9:34 pm COMPARISON: Same day chest x-ray at 11:43 a.m. HISTORY: ORDERING SYSTEM PROVIDED HISTORY: Reason for Exam: CHF FINDINGS: No significant interval change in the intrathoracic findings from the study at 11:43 a.m. Not previously visible on the prior study and incompletely visualized on this study is an area of increased density with subtle periosteal reaction of the right humeral diaphysis. IMPRESSION: No significant interval change. To further characterize the right humeral findings, dedicated right humeral radiographs are recommended. I have personally reviewed the images of this examination and agree with the resident's findings and interpretation. Interpreted by: Fatemeh Georges Preliminary Report By: Isaias Mendez Electronically signed By Fatemeh Georges Dictated Date: 07/10/2023 10:26:15 PM Prelim Date: 07/10/2023 10:37:06 PM Sign Date: 07/10/2023 10:41:58 PM Ordering Provider: CARO CENTERTAJ [facility] ([place]) XR HUMERUS MINIMUM 2 VIEWS [facility] 07-11-2023 XR HUMERUS MINIMUM 2 VIEWS RIGHT ORIGINAL EXAMINATION: TWO XRAY VIEWS OF THE RIGHT HUMERUS 07/11/2023 12:07 pm COMPARISON: X-ray right elbow 01/21/2021 HISTORY: ORDERING SYSTEM PROVIDED HISTORY: Reason for Exam: evaluate for fracture FINDINGS: The acromioclavicular joint is maintained with moderate degenerative change. There is also degenerative change at the glenohumeral joint. And elbow prosthesis is identified. This is incompletely assessed on a nondedicated evaluation. There is lucency surrounding the ulnar component which could be access service representative of loosening or particle disease. There is a well corticated osseous fragment along the medial distal humerus which is consistent with fracture although this appears chronic in nature. Lucency is also visualized around the humeral component of the elbow prosthesis distally. Metallic densities are seen in the proximal humeral shaft and overlying the proximal ulnar shaft. IMPRESSION: 1. Chronic appearing fracture of the distal humerus. 2. Degenerative changes of the shoulder and acromioclavicular joint. 3. Lucency surrounding the elbow prosthesis could be access service representative of loosening, infection, or particle disease. Interpreted by: Kan Bradley MD Preliminary Report By: Kan Bradley MD Electronically signed By Kan Bradley MD Dictated Date: 07/11/2023 12:29:16 PM Prelim Date: 07/11/2023 12:32:10 PM Sign Date: 07/11/2023 12:32:10 PM Ordering Provider: BRITT Robertson [facility] ([place]) .Auto Diffon 07-10-2023 Basophil, Absolute 0.0 10 3/mcL Normal 0.0-0.2 [facility] ([place]) Comment on above: Performed By: #### G FR, ANEU, CMP, PHOS, TROPHS, ADIFF, TSH, MG, CAION, CBC, PBNP #### [address] [address] Basophils/100 WBC (Bld) 0.4 % Normal 0.0-2.5 [facility] ([place]) Comment on above: Performed By: #### G FR, ANEU, CMP, PHOS, TROPHS, ADIFF, TSH, MG, CAION, CBC, PBNP #### [address] [address] Eosinophil, Absolute 0.0 10 3/mcL Normal 0.0-0.4 [facility] ([place]) Comment on above: Performed By: #### G FR, ANEU, CMP, PHOS, TROPHS, ADIFF, TSH, MG, CAION, CBC, PBNP #### [address] [address] Eosinophils/100 WBC (Bld) 0.3 % Normal 0.0-7.0 [facility] ([place]) Comment on above: Performed By: #### G FR, ANEU, CMP, PHOS, TROPHS, ADIFF, TSH, MG, CAION, CBC, PBNP #### [address] [address] Lymphocyte, Absolute 0.3 10 3/mcL Low 0.8-3.9 [facility] ([place]) Comment on above: Performed By: #### G FR, ANEU, CMP, PHOS, TROPHS, ADIFF, TSH, MG, CAION, CBC, PBNP #### [address] [address] Lymphocytes/100 WBC (Bld) 5.9 % Low 10.0-50.0 [facility] ([place]) Comment on above: Performed By: #### G FR, ANEU, CMP, PHOS, TROPHS, ADIFF, TSH, MG, CAION, CBC, PBNP #### [address] [address] Monocyte, Absolute 0.3 10 3/mcL Normal 0.2-1.0 [facility] ([place]) Comment on above: Performed By: #### G FR, ANEU, CMP, PHOS, TROPHS, ADIFF, TSH, MG, CAION, CBC, PBNP #### [address] [address] Monocytes/100 WBC (Bld) 6.2 % Normal 1.7-13.0 [facility] ([place]) Comment on above: Performed By: #### G FR, ANEU, CMP, PHOS, TROPHS, ADIFF, TSH, MG, CAION, CBC, PBNP #### [address] [address] Neutrophils/100 WBC (Bld) 87.2 % High 37.0-80.0 [facility] ([place]) Comment on above: Performed By: #### G FR, ANEU, CMP, PHOS, TROPHS, ADIFF, TSH, MG, CAION, CBC, PBNP #### [address] [address] .GFRon 07-10-2023 GFR 57 ml/min/1.73sqm Normal [facility] ([place]) Comment on above: Result Comment: GFR Population mean for , Non- Americans Ages 20-29 = 116 mL/min/1.73 sq.m. Ages 30-39 = 107 mL/min/1.73 sq.m. Ages 40-49 = 99 mL/min/1.73 sq.m. Ages 50-59 = 93 mL/min/1.73 sq.m. Ages 60-69 = 85 mL/min/1.73 sq.m. Ages 70+ = 75 mL/min/1.73 sq.m. Chronic Kidney Disease: Less than 60 mL/min/1.73 square meters End Stage Renal Disease: Less than 15 mL/min/1.73 square meters Performed By: #### G FR, ANEU, CMP, PHOS, TROPHS, ADIFF, TSH, MG, CAION, CBC, PBNP #### [address] [address] GFR Non- 47 ml/min/1.73sqm Normal [facility] ([place]) Comment on above: Result Comment: GFR Population mean for , Non- Americans Ages 20-29 = 116 mL/min/1.73 sq.m. Ages 30-39 = 107 mL/min/1.73 sq.m. Ages 40-49 = 99 mL/min/1.73 sq.m. Ages 50-59 = 93 mL/min/1.73 sq.m. Ages 60-69 = 85 mL/min/1.73 sq.m. Ages 70+ = 75 mL/min/1.73 sq.m. Chronic Kidney Disease: Less than 60 mL/min/1.73 square meters End Stage Renal Disease: Less than 15 mL/min/1.73 square meters Performed By: #### G FR, ANEU, CMP, PHOS, TROPHS, ADIFF, TSH, MG, CAION, CBC, PBNP #### [address] [address] .MDWon 07-10-2023 Monocyte Distribution Width 26.61 High 0.00-20.00 [facility] ([place]) Comment on above: Result Comment: For adults in ED, MDW>20.0 may be associated with a higher risk of sepsis during the first 12hrs of hospital admission Performed By: #### G FR, ANEU, CMP, PHOS, TROPHS, ADIFF, TSH, MG, CAION, CBC, PBNP #### [address] [address] .NEUABSon 07-10-2023 Neutrophil, Absolute 4.6 10 3/mcL Normal 2.9-6.2 [facility] ([place]) Comment on above: Performed By: #### G FR, ANEU, CMP, PHOS, TROPHS, ADIFF, TSH, MG, CAION, CBC, PBNP #### [address] [address] [address] .Urinalysis Microscopic (AO) on 07-10-2023 UA Bacteria 4+ /hpf Abnormal [facility] ([place]) Comment on above: Performed By: #### G FR, ANEU, CMP, PHOS, TROPHS, ADIFF, TSH, MG, CAION, CBC, PBNP #### [address] [address] UA RBC 0-5 Abnormal None Seen [facility] ([place]) Comment on above: Performed By: #### G FR, ANEU, CMP, PHOS, TROPHS, ADIFF, TSH, MG, CAION, CBC, PBNP #### [address] [address] UA Squam Epithelial 0-5 Abnormal None Seen [facility] ([place]) Comment on above: Performed By: #### G FR, ANEU, CMP, PHOS, TROPHS, ADIFF, TSH, MG, CAION, CBC, PBNP #### [place] [address] UA WBC 0-5 Abnormal None Seen [facility] ([place]) Comment on above: Performed By: #### G FR, ANEU, CMP, PHOS, TROPHS, ADIFF, TSH, MG, CAION, CBC, PBNP #### [address] [address] UA Yeast 1+ /hpf Abnormal [facility] ([place]) Comment on above: Performed By: #### G FR, ANEU, CMP, PHOS, TROPHS, ADIFF, TSH, MG, CAION, CBC, PBNP #### [address] [address] BMPon 07-10-2023 BUN/Creatinine Ratio 18 ratio Normal 7-27 [facility] ([place]) Comment on above: Performed By: #### G FR, ANEU, CMP, PHOS, TROPHS, ADIFF, TSH, MG, CAION, CBC, PBNP #### [place] [address] Calcium [Mass/Vol] 9.1 mg/dL Normal 8.4-10.2 [facility] ([place]) Comment on above: Performed By: #### G FR, ANEU, CMP, PHOS, TROPHS, ADIFF, TSH, MG, CAION, CBC, PBNP #### [address] [address] Chloride [Moles/Vol] 97 mmol/L Low 98-107 [facility] ([place]) Comment on above: Performed By: #### G FR, ANEU, CMP, PHOS, TROPHS, ADIFF, TSH, MG, CAION, CBC, PBNP #### [address] [address] CO2 [Moles/Vol] 27 mmol/L Normal 23-31 [facility] ([place]) Comment on above: Performed By: #### G FR, ANEU, CMP, PHOS, TROPHS, ADIFF, TSH, MG, CAION, CBC, PBNP #### [address] [address] Creatinine [Mass/Vol] 1.14 mg/dL High 0.55-1.02 [facility] ([place]) Comment on above: Performed By: #### G FR, ANEU, CMP, PHOS, TROPHS, ADIFF, TSH, MG, CAION, CBC, PBNP #### [address] [address] Electrolyte Balance 11.0 mEq/L Normal 4.0-15.0 [facility] ([place]) Comment on above: Performed By: #### G FR, ANEU, CMP, PHOS, TROPHS, ADIFF, TSH, MG, CAION, CBC, PBNP #### [address] [address] Glucose [Mass/Vol] 181 mg/dL High 83-110 [facility] ([place]) Comment on above: Performed By: #### G FR, ANEU, CMP, PHOS, TROPHS, ADIFF, TSH, MG, CAION, CBC, PBNP #### [address] [address] Potassium [Moles/Vol] 4.0 mmol/L Normal 3.5-5.1 [facility] ([place]) Comment on above: Performed By: #### G FR, ANEU, CMP, PHOS, TROPHS, ADIFF, TSH, MG, CAION, CBC, PBNP #### [place] [address] Sodium [Moles/Vol] 135 mmol/L Low 136-145 [facility] ([place]) Comment on above: Performed By: #### G FR, ANEU, CMP, PHOS, TROPHS, ADIFF, TSH, MG, CAION, CBC, PBNP #### [place] [address] Urea nitrogen [Mass/Vol] 21 mg/dL High 7-18 [facility] ([place]) Comment on above: Performed By: #### G FR, ANEU, CMP, PHOS, TROPHS, ADIFF, TSH, MG, CAION, CBC, PBNP #### [place] [address] CBCon 07-10-2023 Erythrocyte distribution width (RBC) [Ratio] 15.3 % High 11.5-14.5 [facility] ([place]) Comment on above: Performed By: #### G FR, ANEU, CMP, PHOS, TROPHS, ADIFF, TSH, MG, CAION, CBC, PBNP #### [place] [address] Hematocrit (Bld) [Volume fraction] 36.4 % Low 37.0-47.0 [facility] ([place]) Comment on above: Performed By: #### G FR, ANEU, CMP, PHOS, TROPHS, ADIFF, TSH, MG, CAION, CBC, PBNP #### [place] [address] Hgb 12.5 G/dL Normal 12.0-16.0 [facility] ([place]) Comment on above: Performed By: #### G FR, ANEU, CMP, PHOS, TROPHS, ADIFF, TSH, MG, CAION, CBC, PBNP #### [place] [address] MCH (RBC) [Entitic mass] 29.2 pg Normal 27.0-31.2 [facility] ([place]) Comment on above: Performed By: #### G FR, ANEU, CMP, PHOS, TROPHS, ADIFF, TSH, MG, CAION, CBC, PBNP #### [place] [address] MCHC 34.4 G/dL Normal 33.0-37.0 [facility] ([place]) Comment on above: Performed By: #### G FR, ANEU, CMP, PHOS, TROPHS, ADIFF, TSH, MG, CAION, CBC, PBNP #### [place] [address] MCV (RBC) [Entitic vol] 84.8 fL Normal 80.0-94.0 [facility] ([place]) Comment on above: Performed By: #### G FR, ANEU, CMP, PHOS, TROPHS, ADIFF, TSH, MG, CAION, CBC, PBNP #### [place] [address] Platelet 200 10 3/mcL Normal 130-400 [facility] ([place]) Comment on above: Performed By: #### G FR, ANEU, CMP, PHOS, TROPHS, ADIFF, TSH, MG, CAION, CBC, PBNP #### [place] [address] Platelet mean volume (Bld) [Entitic vol] 7.5 fL Normal 7.4-10.4 [facility] ([place]) Comment on above: Performed By: #### G FR, ANEU, CMP, PHOS, TROPHS, ADIFF, TSH, MG, CAION, CBC, PBNP #### [place] [address] RBC 4.29 10 6/mcL Normal 4.20-5.40 [facility] ([place]) Comment on above: Performed By: #### G FR, ANEU, CMP, PHOS, TROPHS, ADIFF, TSH, MG, CAION, CBC, PBNP #### [place] [address] WBC 5.2 10 3/mcL Normal 4.6-10.8 [facility] ([place]) Comment on above: Performed By: #### G FR, ANEU, CMP, PHOS, TROPHS, ADIFF, TSH, MG, CAION, CBC, PBNP #### [place] [address] CT HEAD OR BRAIN W/O CONTRAS Ton 07-10-2023 CT HEAD OR BRAIN W/O CONTRAST ORIGINAL EXAMINATION: CT OF THE HEAD WITHOUT CONTRAST 07/10/2023 11:45 am TECHNIQUE: CT of the head was performed without the administration of intravenous contrast. Automated exposure control, iterative reconstruction, and/or weight based adjustment of the mA/kV was utilized to reduce the radiation dose to as low as reasonably achievable. COMPARISON: 03/27/2020 HISTORY: ORDERING SYSTEM PROVIDED HISTORY: Reason for Exam: INJURY FINDINGS: BRAIN/VENTRICLES: There is no acute intracranial hemorrhage, mass effect or midline shift. No abnormal extra-axial fluid collection. The soliz-white differentiation is maintained without evidence of an acute infarct. There is no evidence of hydrocephalus. There is atrophy and microangiopathic change. There is extensive calcification along the midline falx. ORBITS: The visualized portion of the orbits demonstrate no acute abnormality. SINUSES: There is severe mucosal thickening in the bilateral maxillary and ethmoid sinuses. No air-fluid levels. SOFT TISSUES/SKULL: No acute abnormality of the visualized skull or soft tissues. IMPRESSION: No acute intracranial abnormality. Severe paranasal sinus disease which is new from the prior study and may be acute. Interpreted by: Adriel Box MD Preliminary Report By: Adriel Box MD Electronically signed By Adriel Box MD Dictated Date: 07/10/2023 11:48:13 AM Prelim Date: 07/10/2023 11:49:26 AM Sign Date: 07/10/2023 11:49:26 AM Ordering Provider: CARLOS POLANCO [facility] ([place]) CT HIP W/O CONTRAST RIGHTon 07-10-2023 CT HIP W/O CONTRAST RIGHT ORIGINAL EXAMINATION: CT of the right hip was performed without the administration of intravenous contrast. Multiplanar reformatted images are provided for review. Automated exposure control, iterative reconstruction, and/or weight based adjustment of the mA/kV was utilized to reduce the radiation dose to as low as reasonably achievable.07/10/2023 1:57 pm COMPARISON: Same day pelvis and right hip radiographs HISTORY: ORDERING SYSTEM PROVIDED HISTORY: Reason for Exam: question fx on plain films FINDINGS: Motion artifact obscures detail. The distal femur particularly is poorly evaluated due to motion. An intramedullary romeo and 2 fixation screws are noted within the right femur with associated beam hardening artifact despite metal artifact reduction acquisition. There is mild, nonspecific edema in the superficial soft tissues of the visible right lower extremity. There are multiple sites of chronic posttraumatic heterotopic calcification. There is a fracture line involving the subtrochanteric, intertrochanteric and lesser trochanteric region of the left femur. There some region of callus formation around the fracture line but the fracture line appears incompletely remodeled. 36). Mild degenerative changes seen in the right hip. There are moderate degenerative changes in the visualized knee, likely with loose intra-articular bodies IMPRESSION: The intertrochanteric/le sser trochanteric and subtrochanteric fractures are incompletely remodeled but likely subacute to chronic. If there is concern for superimposed acute fracture, three-phase bone scan may be considered. MRI may be inconclusive due to significant metal artifacts. Extensive bony remodeling of the proximal femur with heterotopic ossification. Nonspecific soft tissue edema Findings were discussed with CARLOS POLANCO at 2:54 pm on 07/10/2023. I have personally reviewed the images of this examination and agree with the resident's findings and interpretation. Interpreted by: José Mckeon MD Preliminary Report By: Isaias Mendez Electronically signed By José Mckeon MD Dictated Date: 07/10/2023 2:14:05 PM Prelim Date: 07/10/2023 2:28:28 PM Sign Date: 07/10/2023 2:58:24 PM Ordering Provider: CARLOS OPLANCO [facility] ([place]) CT SPINE CERVICAL W/O CONTRA STon 07-10-2023 CT SPINE CERVICAL W/O CONTRAST ORIGINAL EXAMINATION: CT OF THE CERVICAL SPINE WITHOUT CONTRAST 07/10/2023 11:46 am TECHNIQUE: CT of the cervical spine was performed without the administration of intravenous contrast. Multiplanar reformatted images are provided for review. Automated exposure control, iterative reconstruction, and/or weight based adjustment of the mA/kV was utilized to reduce the radiation dose to as low as reasonably achievable. COMPARISON: None. HISTORY: ORDERING SYSTEM PROVIDED HISTORY: Reason for Exam: fall INJURY FINDINGS: Mild anterolisthesis seen of C7 on T1. An anterior fusion seen from C3 through C7. There appears to be a chronic fusion of the associated intervertebral disc spaces at the surgical levels. Multilevel facet and uncovertebral joint arthrosis visualized. No acute fractures are identified. Significant multilevel bony foraminal stenosis visualized. Mild areas of canal effacement. Atherosclerosis seen of the cervical vasculature. The visualized lung apices appear clear. IMPRESSION: Extensive surgical changes with anterior fusion from C3 through C7. Degenerative changes with significant multifocal bony foraminal stenosis. There is mild anterolisthesis of C7 on T1 No visible fractures Interpreted by: José Mckeon MD Preliminary Report By: José Mckeon MD Electronically signed By José Mckeon MD Dictated Date: 07/10/2023 11:48:31 AM Prelim Date: 07/10/2023 11:51:46 AM Sign Date: 07/10/2023 11:51:46 AM Ordering Provider: CARLOS Robertson [facility] ([place]) LABORATORYOrdered By: SYSTEM SYSTEM on 07-10-2023 Albumin BCP dye [Mass/Vol] 3.6 G/dL Normal 3.2 - 4.8 G/dL ADM SS Albumin/Globulin [Mass ratio] 0.9 {ratio} Normal 0.9 - 1.6 ratio AH ADM SS ALP [Catalytic activity/Vol] 82 U/L Normal 38 - 126 U/L ADM SS ALT No additional P-5'-P [Catalytic activity/Vol] 29 U/L Normal 10 - 49 U/L ADM SS AST [Catalytic activity/Vol] 43 U/L High 8 - 34 U/L ADM SS Bilirubin [Mass/Vol] 0.40 mg/dL Normal 0.20 - 1.20 mg/dL ADM SS Comment on above: Interpretive Data: U se of this assay is not recommended for patients undergoing treatment with eltrombopag due to the potential for falsely elevated results. CRP [Mass/Vol] 4.0 mg/dL High 0.0 - 1.0 mg/dL ADM SS Comment on above: Interpretive Data: * *Note - New Reference Range in effect 19 Globulin 4.0 G/dL High 1.5 - 3.8 G/dL ADM SS Phosphate [Mass/Vol] 3.6 mg/dL Normal 2.4 - 5 .1 mg/dL ADM SS Comment on above: Interpretive Data: * *Note - New Reference Range in effect 19 Protein [Mass/Vol] 7.6 G/dL Normal 5.7 - 8.2 G/dL ADM SS Comment on above: Interpretive Data: * *Note - New Reference Range in effect 19 Troponin I.cardiac DL <= 0.01 ng/mL [Mass/Vol] 24.62 ng/L Normal 0.00 - 34.00 ng/L AH ADM SS TSH Qn 1.368 mIU/mL Normal 0.550 - 4.780 mIU/mL ADM SS Comment on above: Interpretive Data: * *Note - New Reference Range in effect 19 Troponin I.cardiac DL <= 0.01 ng/mL [Mass/Vol] 32.2 ng/L Normal 0.0 - 51.4 ng/L AO ADM SS Basophil, Absolute 0.0 103/mcL Normal 0.0 - 0.2 10^3/mcL AO Workflow SS Basophils/100 WBC (Bld) 0.4 % Normal 0.0 - 2.5 % AO Workflow SS Calcium [Mass/Vol] 9.1 mg/dL Normal 8.4 - 10. 2 mg/dL AO ADM SS Chloride [Moles/Vol] 97 mmol/L Low 98 - 10 7 mmol/L AO ADM SS CO2 [Moles/Vol] 27 mmol/L Normal 23 - 31 mmol/L AO ADM SS Creatinine [Mass/Vol] 1.14 mg/dL High 0.55 - 1.02 mg/dL AO ADM SS Electrolyte Balance 11.0 mEq/L Normal 4.0 - 15 .0 mEq/L AO ADM SS Eosinophil, Absolute 0.0 103/mcL Normal 0.0 - 0 .4 10^3/mcL AO Workflow SS Eosinophils/100 WBC (Bld) 0.3 % Normal 0.0 - 7.0 % AO Workflow SS Erythrocyte distribution width (RBC) [Ratio] 15.3 % High 11.5 - 14.5 % AO Workflow SS GFR/1.73 sq M.predicted among blacks MDRD (S/P/Bld) [Vol rate/Area] 57 ml/min/1.73sqm Invalid Interpretation Code AO Chemistry S Comment on above: Interpretive Data: GFR Population mean for , Non- Americans Ages 20-29 = 116 mL/min/1.73 sq.m. Ages 30-39 = 107 mL/min/1.73 sq.m. Ages 40-49 = 99 mL/min/1.73 sq.m. Ages 50-59 = 93 mL/min/1.73 sq.m. Ages 60-69 = 85 mL/min/1.73 sq.m. Ages 70+ = 75 mL/min/1.73 sq.m. Chronic Kidney Disease: Less than 60 mL/min/1.73 square meters End Stage Renal Disease: Less than 15 mL/min/1.73 square meters GFR/1.73 sq M.predicted among non-blacks MDRD (S/P/Bld) [Vol rate/Area] 47 ml/min/1.73sqm Invalid Interpretation Code AO Chemistry S Comment on above: Interpretive Data: GFR Population mean for , Non- Americans Ages 20-29 = 116 mL/min/1.73 sq.m. Ages 30-39 = 107 mL/min/1.73 sq.m. Ages 40-49 = 99 mL/min/1.73 sq.m. Ages 50-59 = 93 mL/min/1.73 sq.m. Ages 60-69 = 85 mL/min/1.73 sq.m. Ages 70+ = 75 mL/min/1.73 sq.m. Chronic Kidney Disease: Less than 60 mL/min/1.73 square meters End Stage Renal Disease: Less than 15 mL/min/1.73 square meters Glucose [Mass/Vol] 181 mg/dL High 83 - 110 mg/dL AO ADM SS Hematocrit (Bld) [Volume fraction] 36.4 % Low 37.0 - 47.0 % AO Workflow SS Hemoglobin (Bld) [Mass/Vol] 12.5 G/dL Normal 12.0 - 16.0 G/dL AO Workflow SS Lymphocyte, Absolute 0.3 103/mcL Low 0.8 - 3 .9 10^3/mcL AO Workflow SS Lymphocytes/100 WBC (Bld) 5.9 % Low 10.0 - 50.0 % AO Workflow SS MCH (RBC) [Entitic mass] 29.2 pg Normal 27. 0 - 31.2 pg AO Workflow SS MCHC 34.4 G/dL Normal 33.0 - 37.0 G/dL AO Workflow SS MCV (RBC) [Entitic vol] 84.8 fL Normal 80.0 - 94.0 fL AO Workflow SS Monocyte distribution width Auto (Bld) [Entitic vol] 26.61 1 High 0.00 - 20.00 AO Workflow SS Comment on above: Result Comment: For adults in ED, MDW>20.0 may be associated with a higher risk of sepsis during the first 12hrs of hospital admission Monocyte, Absolute 0.3 103/mcL Normal 0.2 - 1.0 10^3/mcL AO Workflow SS Monocytes/100 WBC (Bld) 6.2 % Normal 1.7 - 13.0 % AO Workflow SS Natriuretic peptide.B prohormone N-Terminal [Mass/Vol] 7713 pg/mL High 0 - 125 pg/mL AO ADM SS Comment on above: Interpretive Data: N T-proBNP results of less than 300 pg/mL effectively rules out acute congestive heart failure with 99% negative predictive value. Neutrophil, Absolute 4.6 103/mcL Normal 2.9 - 6 .2 10^3/mcL AO Workflow SS Neutrophils/100 WBC (Bld) 87.2 % High 37.0 - 80.0 % AO Workflow SS Platelet mean volume (Bld) [Entitic vol] 7.5 fL Normal 7.4 - 10.4 fL AO Workflow SS Platelets (Bld) [#/Vol] 200 103/mcL Normal 130 - 400 10^3/mcL AO Workflow SS Potassium [Moles/Vol] 4.0 mmol/L Normal 3.5 - 5.1 mmol/L AO ADM SS RBC (Bld) [#/Vol] 4.29 106/mcL Normal 4.20 - 5.4 0 10^6/mcL AO Workflow SS Sodium [Moles/Vol] 135 mmol/L Low 136 - 145 mmol/L AO ADM SS Troponin I.cardiac DL <= 0.01 ng/mL [Mass/Vol] 28.9 ng/L Normal 0.0 - 51.4 ng/L AO ADM SS Urea nitrogen [Mass/Vol] 21 mg/dL High 7 - 18 mg/dL AO ADM SS Urea nitrogen/Creatinine [Mass ratio] 18 ratio Normal 7 - 27 ratio AO ADM SS WBC (Bld) [#/Vol] 5.2 103/mcL Normal 4.6 - 10.8 10^3/mcL AO Workflow SS LABORATORYOrdered By: Traci Bellamy on 07-10-2023 Calcium.ionized (Bld) [Mass/Vol] 1.06 mmol/L Low 1.12 - 1.32 mmol/L AH Auto Chem SS Natriuretic peptide.B prohormone N-Terminal [Mass/Vol] 8349 pg/mL High 0 - 900 pg/mL AH Auto Chem SS Comment on above: Interpretive Data: N T-proBNP results of less than 300 pg/mL effectively rules out acute congestive heart failure with 99% negative predictive value. LABORATORYOrdered By: Becca Khan on 07-10-2023 ESR 15 minute reading (Bld) [Velocity] 62 mm/hr High 0 - 30 mm/hr AH Auto Heme SS Appearance (U) Clear (07/10/23 11:48 PM) Normal Clear AH Auto Urine SS Bacteria LM.HPF (Urine sed) [#/Area] 2 /[HPF] Invalid Interpretation Code Negative AH Auto Urine SS Bilirubin Ql (U) Negative (07/10/23 11:48 PM) Normal Neg-Trace AH Auto Urine SS Color (U) Yellow (07/10/23 11:48 PM) Normal AH Auto Urine SS Glucose Test strip (U) [Mass/Vol] Negative Normal Negative AH Auto Urine SS Hemoglobin Auto test strip (U) [Mass/Vol] Moderate *ABN* (07/10/23 11:48 PM) Invalid Interpretation Code Neg-Trace AH Auto Urine SS Ketones Ql (U) Trace mg/dL Normal Neg-Trace AH Auto U rine SS UA Leuk Est Negative (07/10/23 11:48 PM) Normal Negative AH Auto Urine SS UA Mucous 1+ /HPF Normal AH Auto Urine SS UA Nitrite Negative (07/10/23 11:48 PM) Normal Negative AH Auto Urine SS UA pH 5.5 (07/10/23 11:48 PM) Normal 5.0 - 8.0 AH Auto Urine SS UA Protein 100 mg/dL Invalid Interpretation Code Negative AH Auto Urine SS UA RBC 3-5 /HPF Invalid Interpretation Code 0-2 AH Auto Urine SS UA Spec Grav 1.015 (07/10/23 11:48 PM) Normal 1.006-1.029 AH Auto Urine SS UA Specimen Type Void (07/10/23 11:48 PM) Normal AH Auto Urine SS UA Squam Epithelial Negative Normal 0-20 AH Au to Urine SS UA Urobilinogen 0.2 E.U./dL Normal 0.2-1.0 AH Auto Urine SS WBC LM.HPF (Urine sed) [#/Area] Rare /HPF Normal 0-5 AH Auto Urine SS LABORATORYOrdered By: Kal Kim on 07-10-2023 FLUAV RNA ADE+probe Ql (Resp) Positive 14 *ABN* (07/10/23 11:48 PM) Invalid Interpretation Code Negative AH Auto Viro/Sero SS Comment on above: Result Comment: This organism causes a reportable disease. Infection Control has been notified. Results have been reported to the [facility]. Notes [id number] FLUBV RNA ADE+probe Ql (Resp) Negative 15 (07/10/23 11:48 PM) Normal Negative AH Auto Viro/Sero SS Comment on above: Result Comment: Note s [id number] MRSA (PCR) Detected 1 *ABN* (07/10/23 11:48 PM) Invalid Interpretation Code Not Detected AH Auto Viro/Sero SS Comment on above: Result Comment: [place] [id number] MRSA PCR Int Staph aureus DNA detected by Real-Time Polymerase Chain Reaction (PCR). Organism viability can not be determined since free bacterial DNA may persist in the absence of viable organisms.As with all PCR based in vitro diagnostic tests, extremely low levels of target below the limit of detection of the assay may be detected, but results may not be reproducible, and the clinical significance unknown.Infection control will be notified. Invalid Interpretation Code AH Auto Viro/Sero SS RSV PCR Negative 16 (07/10/23 11:48 PM) Normal Negative AH Auto Viro/Sero SS Comment on above: Result Comment: Note s [id number] SARS-CoV-2 (COVID-19) RNA ADE+probe Ql (Resp) Negative 12, 13 (07/10/23 11:48 PM) Normal Negative AH Auto Viro/Sero SS Comment on above: Result Comment: [place] s [id number] Interpretive Data: T his test has been authorized by FDA under an EUA for use by authorized laboratories and has not been FDA cleared or approved. Results from the Xpert Xpress SARS-CoV-2/Flu/RSV or Xpert Xpress SARS-CoV-2 only test should be correlated with the clinical history, epidemiological data, and other data available to the clinician evaluating the patient. Performance of the Xpert Xpress SARS-CoV-2/Flu/RSV or Xpert Xpress SARS-CoV-2 only test has only been established in nasopharyngeal swab specimens. Erroneous test results might occur from improper specimen collection; failure to follow the recommended sample collection, handling, and storage procedures; technical error; or sample mix-up.False negative results may occur if virus is present at levels below the analytical limit of detection. Viral nucleic acid may persist in vivo, independent of virus viability. Detection of analyte target(s) does not imply that the corresponding virus(es) are infectious or are the causative agents for clinical symptoms.Recent patient exposure to FluMist or other live attenuated influenza vaccines may cause inaccurate positive results. LABORATORYOrdered By: Ryanne Dao on 07-10-2023 Appearance (U) Cloudy *ABN* (07/10/23 11:11 AM) Invalid Interpretation Code Clear AO Auto Urine SS Bacteria LM.HPF (Urine sed) [#/Area] 4 /[HPF] Invalid Interpretation Code AO Auto Urine SS Bilirubin Ql (U) Negative (07/10/23 11:11 AM) Normal Negative AO Auto Urine SS Color (U) Yellow (07/10/23 11:11 AM) Normal AO Auto Urine SS Glucose Test strip (U) [Mass/Vol] Negative Normal Negative AO Auto Urine SS Hemoglobin Auto test strip (U) [Mass/Vol] Small *ABN* (07/10/23 11:11 AM) Invalid Interpretation Code Negative AO Auto Urine SS Ketones Ql (U) Negative Normal Negative AO Auto Ur ine SS UA Leuk Est Negative (07/10/23 11:11 AM) Normal Negative AO Auto Urine SS UA Nitrite Positive *ABN* (07/10/23 11:11 AM) Invalid Interpretation Code Negative AO Auto Urine SS UA pH 6.0 (07/10/23 11:11 AM) Normal 5.0 - 8.0 AO Auto Urine SS UA Protein 100 mg/dL Invalid Interpretation Code Negative AO Auto Urine SS UA RBC 0-5 /HPF Invalid Interpretation Code None Seen AO Auto Urine SS UA Spec Grav >=1.030 *ABN* (07/10/23 11:11 AM) Invalid Interpretation Code 1.015-1.025 AO Auto Urine SS UA Specimen Type Clean Catch (07/10/23 11:11 AM) Normal AO Auto Urine SS UA Squam Epithelial 0-5 /HPF Invalid Interpretation Code None Seen AO Auto Urine SS UA Urobilinogen 0.2 E.U./dL Normal 0.2-1.0 AO Auto Urine SS WBC LM.HPF (Urine sed) [#/Area] 0-5 /HPF Invalid Interpretation Code None Seen AO Auto Urine SS Yeast LM.HPF (Urine sed) [#/Area] 1 /[HPF] Invalid Interpretation Code AO Auto Urine SS No Panel Informationon 07-10 Microscopic examination of blood, culture Culture has been received in lab and is no growth to date. Routine cultures are held for 5 days. [facility] Culture Urine 50,000 - 100,000 cfu/ml Escherichia coli ESBL Refer to previous culture for susceptibility. [id number] collected 07-10-23 Extended-Spectrum B-Lactamase isolate may be clinically resistant to therapy with Penicillins, Cephalosporinsor Aztreonam despite apparent in vitro susceptibility to some of these agents. Use of Imipenem is currently restricted to Infectious Disease /Intensivists. Please consult Physicians accordingly. [facility] Escherichia coli ESBL Escherichia coli ESBL [facility] Legionella Urine Ag Presumptive negative for L. pneumophila serogroup 1 antigen in urine, suggesting no recent or current infection. Legionnaire's disease cannot be ruled out since other serogroups and species may also cause disease. [facility] Streptococcus Pneumoniae Urine Antig Presumptive negative for pneumococcal pneumonia, suggesting no current or recent pneumococcal infection. Infection due to Strep pneumoniae cannot be ruled out since the antigen present in the sample may be below the detection limit of the test. [facility] Comment on above: This test has not be en evaluated on patients taking antibiotics for greater than 24 hours or on patients who have recently completed an antibiotic regimen. The accuracy of this test has not been proven in young children. PBNPon 07-10-2023 Natriuretic peptide B (Bld) [Mass/Vol] 7713 pg/mL High 0-125 [facility] ([place]) Comment on above: Result Comment: NT-p roBNP results of less than 300 pg/mL effectively rules out acute congestive heart failure with 99% negative predictive value. Performed By: #### G FR, ANEU, CMP, PHOS, TROPHS, ADIFF, TSH, MG, CAION, CBC, PBNP #### [place] [id number] TROPHSon 07-10-2023 Troponin I High Sensitivity 32.2 ng/L Normal 0.0-51.4 [facility] ([place]) Comment on above: Performed By: #### G FR, ANEU, CMP, PHOS, TROPHS, ADIFF, TSH, MG, CAION, CBC, PBNP #### [place] [address] Troponin I High Sensitivity 28.9 ng/L Normal 0.0-51.4 [facility] ([place]) Comment on above: Performed By: #### G FR, ANEU, CMP, PHOS, TROPHS, ADIFF, TSH, MG, CAION, CBC, PBNP #### [place] [id number] UAon 07-10-2023 Color (U) Yellow Normal [facility] ([place]) Comment on above: Performed By: #### G FR, ANEU, CMP, PHOS, TROPHS, ADIFF, TSH, MG, CAION, CBC, PBNP #### [place] [address] Glucose (U) [Mass/Vol] Negative Normal Negative [facility] ([place]) Comment on above: Performed By: #### G FR, ANEU, CMP, PHOS, TROPHS, ADIFF, TSH, MG, CAION, CBC, PBNP #### [place] [address] Ketones Ql (U) Negative Normal Negative [facility] ([place]) Comment on above: Performed By: #### G FR, ANEU, CMP, PHOS, TROPHS, ADIFF, TSH, MG, CAION, CBC, PBNP #### [place] [address] UA Appear Cloudy Abnormal Clear [facility] ([place]) Comment on above: Performed By: #### G FR, ANEU, CMP, PHOS, TROPHS, ADIFF, TSH, MG, CAION, CBC, PBNP #### [address] [address] UA Blood Small Abnormal Negative [facility] ([place]) Comment on above: Performed By: #### G FR, ANEU, CMP, PHOS, TROPHS, ADIFF, TSH, MG, CAION, CBC, PBNP #### [place] [address] UA Leuk Est Negative Normal Negative [facility] ([place]) Comment on above: Performed By: #### G FR, ANEU, CMP, PHOS, TROPHS, ADIFF, TSH, MG, CAION, CBC, PBNP #### [place] [address] UA Nitrite Positive Abnormal Negative [facility] ([place]) Comment on above: Performed By: #### G FR, ANEU, CMP, PHOS, TROPHS, ADIFF, TSH, MG, CAION, CBC, PBNP #### [place] [address] UA pH 6.0 Normal 5.0 - 8.0 [facility] ([place]) Comment on above: Performed By: #### G FR, ANEU, CMP, PHOS, TROPHS, ADIFF, TSH, MG, CAION, CBC, PBNP #### [place] [address] UA Protein 100 mg/dL Abnormal Negative [facility] ([place]) Comment on above: Performed By: #### G FR, ANEU, CMP, PHOS, TROPHS, ADIFF, TSH, MG, CAION, CBC, PBNP #### [place] [address] UA Spec Grav >=1.030 Abnormal 1.015-1.025 [facility] ([place]) Comment on above: Performed By: #### G FR, ANEU, CMP, PHOS, TROPHS, ADIFF, TSH, MG, CAION, CBC, PBNP #### [place] [address] UA Specimen Type Clean Catch Normal [facility] ([place]) Comment on above: Performed By: #### G FR, ANEU, CMP, PHOS, TROPHS, ADIFF, TSH, MG, CAION, CBC, PBNP #### [address] [address] UA Urobilinogen 0.2 E.U./dL Normal 0.2-1.0 [facility] ([place]) Comment on above: Performed By: #### G FR, ANEU, CMP, PHOS, TROPHS, ADIFF, TSH, MG, CAION, CBC, PBNP #### [address] [address] Urobilinogen (U) [Mass/Vol] Negative Normal Negative [facility] ([place]) Comment on above: Performed By: #### G FR, ANEU, CMP, PHOS, TROPHS, ADIFF, TSH, MG, CAION, CBC, PBNP #### [address] [address] XR CHEST 1 VIEWon 07-10-2023 XR CHEST 1 VIEW ORIGINAL EXAMINATION: ONE XRAY VIEW OF THE CHEST07/10/2023 11:47 am CHEST ONE VIEW AP/PA COMPARISON: 12/24/2022 HISTORY: ORDERING SYSTEM PROVIDED HISTORY: Reason for Exam: Chest Pain FINDINGS: Study is portable and expiratory. There is hypoventilatory change in the lower lungs. Heart size and vascularity are within normal limits. The lungs are clear of focal consolidation. No effusion, pneumothorax, or acute osseous abnormality. IMPRESSION: No visible acute process Interpreted by: Adriel Box MD Preliminary Report By: Adriel Box MD Electronically signed By Adriel Box MD Dictated Date: 07/10/2023 11:51:15 AM Prelim Date: 07/10/2023 11:51:57 AM Sign Date: 07/10/2023 11:51:57 AM Ordering Provider: CARLOS Robertson [facility] ([place]) XR HIP RIGHT W/PELVIS 4 VIEW Son 07-10-2023 XR HIP RIGHT W/PELVIS 4 VIEWS ORIGINAL EXAMINATION: 1 XRAY VIEWS OF THE RIGHT HIP07/10/2023 11:48 am HIP UNILATERAL MIN 4V W/PELVIS RIGHT COMPARISON: 12/22/2022 HISTORY: ORDERING SYSTEM PROVIDED HISTORY: Reason for Exam: pain FINDINGS: The pelvic image is suboptimal due to underpenetration. Iliac bones are not optimally visualized. No pubic bone fracture seen. The sacrum is obscured. Degenerative changes seen of the hips. An intramedullary romeo is seen in the femur. The romeo is secured distally by a single screw in the distal metadiaphysis. There is a dynamic screw traversing the intertrochanteric zone of the femur, the romeo and neck of the femur. Chronic remodeling of the proximal femur noted. Chronic posttraumatic ossification noted near the greater trochanter. There is either a new fracture or poorly remodeled fracture involving the lesser trochanteric and subtrochanteric zone of the femur. Cortical offset laterally measures approximately 4 mm. IMPRESSION: There is either a new fracture or poorly remodeled fracture involving the lesser trochanteric zone and subtrochanteric zone of the right femur. Remodeling of the intertrochanteric zone of the right femur noted. Suboptimal exam Interpreted by: José Mckeon MD Preliminary Report By: José Mckeon MD Electronically signed By José Mckeon MD Dictated Date: 07/10/2023 11:53:57 AM Prelim Date: 07/10/2023 11:57:05 AM Sign Date: 07/10/2023 11:57:05 AM Ordering Provider: CARLOS Robertson [facility] ([place]) Whole blood hemoglobin A1c/t otal hemoglobin ratio (mass fraction)Ordered By: Tushar Fields on 04-19-2023 HbA1c (Bld) [Mass fraction] 6.3 % 3.8-5.6 [facility] Comment on above: Normal < 5.7 % Predi abetic 5.7 - 6.4 % Diabetic >or= 6.5 % Please note range changes. Absolute lymphocyte countOrd ered By: Sebastian Sesay on 04-07-2023 Lymphocytes Auto (Unsp spec) [#/Vol] 0.76 10*3/uL 0.83-4.51 [facility] Basophil percentageOrdered B y: Sebastian Sesay on 04-07-2023 Basophil percentage 217 mg/dL 74-106 [facility] Basophil percentage 136 mmol/L 136-145 [facility] Basophil percentage 4.4 mmol/L 3.5-5.1 [facility] Basophil percentage 107 mmol/L 98-107 [facility] Basophils (Bld) [#/Vol] 6.4 10*3/uL 4.4-11.0 [facility] Basophils (Bld) [#/Vol] 4.8 10*3/uL 2.0-7.7 [facility] Basophils/100 WBC (Bld) 75.5 % 47-70 [facility] Basophils/100 WBC (Bld) 0.8 % 0-5 [facility] Basophils/100 WBC (Bld) 0.3 % 0-1 [facility] Chloride [Moles/Vol] 107 mmol/L 98-107 [facility] Eosinophils/100 WBC (Bld) 0.8 % 0-5 [facility] Glucose [Mass/Vol] 217 mg/dL 74-106 [facility] Comment on above: Glucose result great er than or equal to 200 mg/dLsuggests DIABETES MELLITUS per A.D.A. criteria. Neutrophils (Bld) [#/Vol] 4.8 10*3/uL 2.0-7.7 [facility] Neutrophils/100 WBC (Bld) 75.5 % 47-70 [facility] Potassium [Moles/Vol] 4.4 mmol/L 3.5-5.1 [facility] Sodium [Moles/Vol] 136 mmol/L 136-145 [facility] WBC (Bld) [#/Vol] 6.4 10*3/uL 4.4-11.0 [facility] Blood erythrocytes count (nu mber/volume)Ordered By: Sebastian Sesay on 04-07-2023 RBC (Bld) [#/Vol] 4.27 10*6/uL 4.2-5.4 [facility] Blood hemoglobin measurement (mass/volume)Ordered By: Sebastian Sesay on 04-07-2023 Hemoglobin (Bld) [Mass/Vol] 11.7 g/dL 12.0-15.0 [facility] Blood lymphocytes/100 leukoc ytesOrdered By: Sebastian Sesay on 04-07-2023 Lymphocytes/100 WBC (Bld) 11.9 % 19-41 [facility] Blood monocytes/100 leukocyt esOrdered By: Sebastian Sesay on 04-07-2023 Monocytes/100 WBC (Bld) 11.2 % 0-10 [facility] Blood platelet mean volumeOr dered By: Sebastian Sesay on 04-07-2023 Platelet mean volume (Bld) [Entitic vol] 10.0 fL 6.2-12.0 [facility] Determination of erythrocyte mean corpuscular volume (MCV)Ordered By: Sebastian Sesay on 04-07-2023 MCV (RBC) [Entitic vol] 87.8 fL 81-99 [facility] Hematocrit Auto (Bld) [Volum e fraction]Ordered By: Sebastian Sesay on 04-07-2023 Hematocrit (Bld) [Volume fraction] 37.5 % 37-47 [facility] Laboratory - Chemistry and C hemistry - challengeOrdered By: Sebastian Sesay on 04-07-2023 CO2 [Moles/Vol] 21.0 mmol/L 21.0-32.0 [facility] Urea nitrogen/Creatinine [Mass ratio] 24.4 mg/mg 10-20 [facility] Laboratory - Hematology and Cell countsOrdered By: Sebastian Sesay on 04-07-2023 Erythrocyte distribution width (RBC) [Entitic vol] 51.4 fL 35.1-43.9 [facility] Erythrocyte distribution width (RBC) [Ratio] 15.9 % 11.6-14.6 [facility] Immature granulocytes/100 WBC (Bld) 0.300 % 0.0-0.9 [facility] Comment on above: IG% - Immature Granu locytes (promyelocytes, myelocytes and metamyelocytes) > 1% indicates that a LEFT SHIFT is Present. MCH (RBC) [Entitic mass] 27.4 pg 27.0-32.0 [facility] Nucleated RBC/100 WBC (Bld) [Ratio] 0 % 0-5 [facility] MCHC Auto (RBC) [Mass/Vol]Or dered By: Sebastian Sesay on 04-07-2023 MCHC (RBC) [Mass/Vol] 31.2 g/dL 32-36 [facility] No Panel InformationOrdered By: Sebastian Sesay on 04-07-2023 Estimated Creatinine Clearance Calc 30.66 ml/min [facility] Estimated GFR (MDRD) Amer 53 mL/min >60 [facility] Comment on above: GFR Calc Estimated GFR (MDRD) Non-Af Amer 44 mL/min >60 [facility] Comment on above: Non- GFR Calc Troponin I High Sensitivity 23 pg/mL 3.0-54.0 [facility] Comment on above: Please Note: [place] t Units and Gender Specific Reference Ranges. For more information see Policy Stat Procedure [place] High Sensitivity Troponin (TNIH) and attachments. 27.4 pg 27.0-32.0 [facility] 15.9 % 11.6-14.6 [facility] 51.4 fl 35.1-43.9 [facility] 0.300 % 0.0-0.9 [facility] 0 % 0-5 [facility] 44 mL/min >60 [facility] 53 mL/min >60 [facility] 30.66 ml/min [facility] 24.4 RATIO 10-20 [facility] 23 pg/mL 3.0-54.0 [facility] 21.0 mmol/L 21.0-32.0 [facility] Platelets bldOrdered By: Benito Sesay on 04-07-2023 Platelets (Bld) [#/Vol] 213 10*3/uL 150-450 [facility] Serum or plasma calcium keyona urement (mass/volume)Ordered By: Sebastian Sesay on 04-07-2023 Calcium [Mass/Vol] 9.2 mg/dL 8.5-10.1 [facility] Serum or plasma creatinine m easurement (mass/volume)Ordered By: Sebastian Sesay on 04-07-2023 Creatinine [Mass/Vol] 1.27 mg/dL 0.55-1.02 [facility] Comment on above: The validity of the calculated GFR & GFRAA in patients over 70 years has not been determined. Clinical correlation is essential. Serum or plasma urea nitroge n measurement (mass/volume)Ordered By: Sebastian Sesay on 04-07-2023 Urea nitrogen [Mass/Vol] 31 mg/dL 7-18 [facility] Thin prep Papanicolaou smear with manual screeningOrdered By: Sebastian Sesay on 04-07-2023 Thin prep Papanicolaou smear with manual screening 8 5-15 [facility] Basophil percentageOrdered B y: Tushar Fields on 02-24-2023 Basophil percentage 97 mg/dL 74-106 [facility] Basophil percentage 6.7 g/dL 6.4-8.2 [facility] Basophil percentage 0.20 mg/dL 0.20-1.00 [facility] Basophil percentage 141 mmol/L 136-145 [facility] Basophil percentage 4.3 mmol/L 3.5-5.1 [facility] Basophil percentage 109 mmol/L 98-107 [facility] Basophils (Bld) [#/Vol] 7.2 10*3/uL 4.4-11.0 [facility] Blood erythrocytes count (nu mber/volume)Ordered By: Tushar Fields on 02-24-2023 RBC (Bld) [#/Vol] 3.76 10*6/uL 4.2-5.4 [facility] Blood hemoglobin measurement (mass/volume)Ordered By: Tushar Fields on 02-24-2023 Hemoglobin (Bld) [Mass/Vol] 10.3 g/dL 12.0-15.0 [facility] Blood platelet mean volumeOr dered By: Tushar Fields on 02-24-2023 Platelet mean volume (Bld) [Entitic vol] 10.4 fL 6.2-12.0 [facility] Determination of erythrocyte mean corpuscular volume (MCV)Ordered By: Tushar Fields on 02-24-2023 MCV (RBC) [Entitic vol] 89.9 fL 81-99 [facility] Hematocrit Auto (Bld) [Volum e fraction]Ordered By: Tushar Fields on 02-24-2023 Hematocrit (Bld) [Volume fraction] 33.8 % 37-47 [facility] MCHC Auto (RBC) [Mass/Vol]Or dered By: Tushar Fields on 02-24-2023 MCHC (RBC) [Mass/Vol] 30.5 g/dL 32-36 [facility] No Panel InformationOrdered By: Tushar Fields on 02-24-2023 27.4 pg 27.0-32.0 [facility] 15.2 % 11.6-14.6 [facility] 49.4 fl 35.1-43.9 [facility] 55 mL/min >60 [facility] 66 mL/min >60 [facility] 33.3 RATIO 10-20 [facility] 3.9 g/dL 2.2-4.2 [facility] 90 U/L 45-117 [facility] 25 U/L 13-56 [facility] 27.0 mmol/L 21.0-32.0 [facility] Platelets bldOrdered By: Elvira Fields on 02-24-2023 Platelets (Bld) [#/Vol] 256 10*3/uL 150-450 [facility] Serum or plasma albumin keyona urement (mass/volume)Ordered By: Tushar Fields on 02-24-2023 Albumin [Mass/Vol] 2.8 g/dL 3.2-5.0 [facility] Serum or plasma albumin/glob ulin mass ratioOrdered By: Tushar Fields on 02-24-2023 Albumin/Globulin [Mass ratio] 0.7 {ratio} 0.9-2.4 [facility] Serum or plasma calcium keyona urement (mass/volume)Ordered By: Tushar Fields on 02-24-2023 Calcium [Mass/Vol] 9.3 mg/dL 8.5-10.1 [facility] Serum or plasma creatinine m easurement (mass/volume)Ordered By: Tushar Fields on 02-24-2023 Creatinine [Mass/Vol] 1.05 mg/dL 0.55-1.02 [facility] Serum or plasma urea nitroge n measurement (mass/volume)Ordered By: Tushar Fields on 02-24-2023 Urea nitrogen [Mass/Vol] 35 mg/dL 7-18 [facility] Thin prep Papanicolaou smear with manual screeningOrdered By: Tushar Fields on 02-24-2023 Thin prep Papanicolaou smear with manual screening 18 U/L 15-37 [facility] Thin prep Papanicolaou smear with manual screening 5 5-15 [facility] Basophil percentageOrdered B y: Tushar Fields on 02-08-2023 Basophil percentage 95 mg/dL 74-106 [facility] Basophil percentage 6.7 g/dL 6.4-8.2 [facility] Basophil percentage 0.20 mg/dL 0.20-1.00 [facility] Basophil percentage 138 mmol/L 136-145 [facility] Basophil percentage 4.0 mmol/L 3.5-5.1 [facility] Basophil percentage 106 mmol/L 98-107 [facility] Basophils (Bld) [#/Vol] 8.6 10*3/uL 4.4-11.0 [facility] Blood erythrocytes count (nu mber/volume)Ordered By: Tushar Fields on 02-08-2023 RBC (Bld) [#/Vol] 3.43 10*6/uL 4.2-5.4 [facility] Blood hemoglobin measurement (mass/volume)Ordered By: Tushar Fields on 02-08-2023 Hemoglobin (Bld) [Mass/Vol] 9.6 g/dL 12.0-15.0 [facility] Blood platelet mean volumeOr dered By: Tushar Fields on 02-08-2023 Platelet mean volume (Bld) [Entitic vol] 10.4 fL 6.2-12.0 [facility] Determination of erythrocyte mean corpuscular volume (MCV)Ordered By: Tushar Fields on 02-08-2023 MCV (RBC) [Entitic vol] 89.8 fL 81-99 [facility] Hematocrit Auto (Bld) [Volum e fraction]Ordered By: Tushar Fields on 02-08-2023 Hematocrit (Bld) [Volume fraction] 30.8 % 37-47 [facility] MCHC Auto (RBC) [Mass/Vol]Or dered By: Tushar Fields on 02-08-2023 MCHC (RBC) [Mass/Vol] 31.2 g/dL 32-36 [facility] No Panel InformationOrdered By: Tushar Fields on 02-08-2023 28.0 pg 27.0-32.0 [facility] 14.7 % 11.6-14.6 [facility] 49.1 fl 35.1-43.9 [facility] 58 mL/min >60 [facility] 71 mL/min >60 [facility] 32.1 RATIO 10-20 [facility] 3.9 g/dL 2.2-4.2 [facility] 101 U/L 45-117 [facility] 22 U/L 13-56 [facility] 27.0 mmol/L 21.0-32.0 [facility] Platelets bldOrdered By: Elvira Fields on 02-08-2023 Platelets (Bld) [#/Vol] 280 10*3/uL 150-450 [facility] Serum or plasma albumin keyona urement (mass/volume)Ordered By: Tushar Fields on 02-08-2023 Albumin [Mass/Vol] 2.8 g/dL 3.2-5.0 [facility] Serum or plasma albumin/glob ulin mass ratioOrdered By: Tushar Fields on 02-08-2023 Albumin/Globulin [Mass ratio] 0.7 {ratio} 0.9-2.4 [facility] Serum or plasma calcium keyona urement (mass/volume)Ordered By: Tushar Fields on 02-08-2023 Calcium [Mass/Vol] 8.9 mg/dL 8.5-10.1 [facility] Serum or plasma creatinine m easurement (mass/volume)Ordered By: Tushar Fields on 02-08-2023 Creatinine [Mass/Vol] 1.00 mg/dL 0.55-1.02 [facility] Serum or plasma urea nitroge n measurement (mass/volume)Ordered By: Tushar Fields on 02-08-2023 Urea nitrogen [Mass/Vol] 32 mg/dL 7-18 [facility] Thin prep Papanicolaou smear with manual screeningOrdered By: Tushar Fields on 02-08-2023 Thin prep Papanicolaou smear with manual screening 18 U/L 15-37 [facility] Thin prep Papanicolaou smear with manual screening 5 5-15 [facility] Basophil percentageOrdered B y: Tushar Fields on 01-03-2023 Basophil percentage 68 mg/dL 74-106 [facility] Basophil percentage 140 mmol/L 136-145 [facility] Basophil percentage 3.9 mmol/L 3.5-5.1 [facility] Basophil percentage 107 mmol/L 98-107 [facility] Basophils (Bld) [#/Vol] 9.6 10*3/uL 4.4-11.0 [facility] Blood erythrocytes count (nu mber/volume)Ordered By: Tushar Fields on 01-03-2023 RBC (Bld) [#/Vol] 2.98 10*6/uL 4.2-5.4 [facility] Blood hemoglobin measurement (mass/volume)Ordered By: Tushar Fields on 01-03-2023 Hemoglobin (Bld) [Mass/Vol] 8.5 g/dL 12.0-15.0 [facility] Blood platelet mean volumeOr dered By: Tushar Feilds on 01-03-2023 Platelet mean volume (Bld) [Entitic vol] 9.8 fL 6.2-12.0 [facility] Determination of erythrocyte mean corpuscular volume (MCV)Ordered By: Tushar Fields on 01-03-2023 MCV (RBC) [Entitic vol] 95.6 fL 81-99 [facility] Hematocrit Auto (Bld) [Volum e fraction]Ordered By: Tushar Fields on 01-03-2023 Hematocrit (Bld) [Volume fraction] 28.5 % 37-47 [facility] MCHC Auto (RBC) [Mass/Vol]Or dered By: Tushar Fields on 01-03-2023 MCHC (RBC) [Mass/Vol] 29.8 g/dL 32-36 [facility] No Panel InformationOrdered By: Tushar Fields on 01-03-2023 28.5 pg 27.0-32.0 [facility] 16.5 % 11.6-14.6 [facility] 56.4 fl 35.1-43.9 [facility] 56 mL/min >60 [facility] 67 mL/min >60 [facility] 22.1 RATIO 10-20 [facility] 28.0 mmol/L 21.0-32.0 [facility] Platelets bldOrdered By: Elvira Fields on 01-03-2023 Platelets (Bld) [#/Vol] 332 10*3/uL 150-450 [facility] Serum or plasma calcium keyona urement (mass/volume)Ordered By: Tushar Fields on 01-03-2023 Calcium [Mass/Vol] 9.1 mg/dL 8.5-10.1 [facility] Serum or plasma creatinine m easurement (mass/volume)Ordered By: Tushar Fields on 01-03-2023 Creatinine [Mass/Vol] 1.04 mg/dL 0.55-1.02 [facility] Serum or plasma urea nitroge n measurement (mass/volume)Ordered By: Tushar Fields on 01-03-2023 Urea nitrogen [Mass/Vol] 23 mg/dL 7-18 [facility] Thin prep Papanicolaou smear with manual screeningOrdered By: Tushar Fields on 01-03-2023 Thin prep Papanicolaou smear with manual screening 09 17- [facility] .Auto Diffon 12-28-2022 Basophil, Absolute 0.0 10 3/mcL Normal 0.0-0.3 [facility] ([place]) Comment on above: Performed By: #### G FR, ANEU, CMP, PHOS, TROPHS, ADIFF, TSH, MG, CAION, CBC, PBNP #### [address] [address] Basophils/100 WBC (Bld) 0.4 % Normal 0.0-2.5 [facility] ([place]) Comment on above: Performed By: #### G FR, ANEU, CMP, PHOS, TROPHS, ADIFF, TSH, MG, CAION, CBC, PBNP #### [address] [address] Eosinophil, Absolute 0.4 10 3/mcL Normal 0.0-0.7 [facility] ([place]) Comment on above: Performed By: #### G FR, ANEU, CMP, PHOS, TROPHS, ADIFF, TSH, MG, CAION, CBC, PBNP #### [address] [address] Eosinophils/100 WBC (Bld) 4.1 % Normal 0.0-6.0 [facility] ([place]) Comment on above: Performed By: #### G FR, ANEU, CMP, PHOS, TROPHS, ADIFF, TSH, MG, CAION, CBC, PBNP #### [address] [address] Lymphocyte, Absolute 1.2 10 3/mcL Normal 0.9-4.3 [facility] ([place]) Comment on above: Performed By: #### G FR, ANEU, CMP, PHOS, TROPHS, ADIFF, TSH, MG, CAION, CBC, PBNP #### [address] [address] Lymphocytes/100 WBC (Bld) 12.2 % Low 20.0-40.0 [facility] ([place]) Comment on above: Performed By: #### G FR, ANEU, CMP, PHOS, TROPHS, ADIFF, TSH, MG, CAION, CBC, PBNP #### [address] [address] Monocyte, Absolute 0.5 10 3/mcL Normal 0.1-1.4 [facility] ([place]) Comment on above: Performed By: #### G FR, ANEU, CMP, PHOS, TROPHS, ADIFF, TSH, MG, CAION, CBC, PBNP #### [address] [address] Monocytes/100 WBC (Bld) 4.7 % Normal 2.0-13.0 [facility] ([place]) Comment on above: Performed By: #### G FR, ANEU, CMP, PHOS, TROPHS, ADIFF, TSH, MG, CAION, CBC, PBNP #### [address] [address] Neutrophils/100 WBC (Bld) 78.6 % High 50.0-75.0 [facility] ([place]) Comment on above: Performed By: #### G FR, ANEU, CMP, PHOS, TROPHS, ADIFF, TSH, MG, CAION, CBC, PBNP #### [address] [address] .GFRon 12-28-2022 GFR >60 Normal [facility] ([place]) Comment on above: Result Comment: GFR Population mean for , Non- Americans Ages 20-29 = 116 mL/min/1.73 sq.m. Ages 30-39 = 107 mL/min/1.73 sq.m. Ages 40-49 = 99 mL/min/1.73 sq.m. Ages 50-59 = 93 mL/min/1.73 sq.m. Ages 60-69 = 85 mL/min/1.73 sq.m. Ages 70+ = 75 mL/min/1.73 sq.m. Chronic Kidney Disease: Less than 60 mL/min/1.73 square meters End Stage Renal Disease: Less than 15 mL/min/1.73 square meters Performed By: #### G FR, ANEU, CMP, PHOS, TROPHS, ADIFF, TSH, MG, CAION, CBC, PBNP #### [address] [address] GFR Non- 52 ml/min/1.73sqm Normal [facility] ([place]) Comment on above: Result Comment: GFR Population mean for , Non- Americans Ages 20-29 = 116 mL/min/1.73 sq.m. Ages 30-39 = 107 mL/min/1.73 sq.m. Ages 40-49 = 99 mL/min/1.73 sq.m. Ages 50-59 = 93 mL/min/1.73 sq.m. Ages 60-69 = 85 mL/min/1.73 sq.m. Ages 70+ = 75 mL/min/1.73 sq.m. Chronic Kidney Disease: Less than 60 mL/min/1.73 square meters End Stage Renal Disease: Less than 15 mL/min/1.73 square meters Performed By: #### G FR, ANEU, CMP, PHOS, TROPHS, ADIFF, TSH, MG, CAION, CBC, PBNP #### [address] [address] .NEUABSon 12-28-2022 Neutrophil, Absolute 7.5 10 3/mcL Normal 2.3-8.1 [facility] ([place]) Comment on above: Performed By: #### G FR, ANEU, CMP, PHOS, TROPHS, ADIFF, TSH, MG, CAION, CBC, PBNP #### [address] [address] BMPon 12-28-2022 BUN/Creatinine Ratio 30.5 ratio High 10.0-22.0 [facility] ([place]) Comment on above: Performed By: #### G FR, ANEU, CMP, PHOS, TROPHS, ADIFF, TSH, MG, CAION, CBC, PBNP #### [address] [address] Calcium [Mass/Vol] 8.8 mg/dL Normal 8.7-10.4 [facility] ([place]) Comment on above: Performed By: #### G FR, ANEU, CMP, PHOS, TROPHS, ADIFF, TSH, MG, CAION, CBC, PBNP #### [address] [address] Chloride [Moles/Vol] 106 mmol/L Normal 98-110 [facility] ([place]) Comment on above: Performed By: #### G FR, ANEU, CMP, PHOS, TROPHS, ADIFF, TSH, MG, CAION, CBC, PBNP #### [address] [address] CO2 [Moles/Vol] 29 mmol/L Normal 22-32 [facility] ([place]) Comment on above: Performed By: #### G FR, ANEU, CMP, PHOS, TROPHS, ADIFF, TSH, MG, CAION, CBC, PBNP #### [address] [address] Creatinine [Mass/Vol] 1.05 mg/dL Normal 0.50-1.20 [facility] ([place]) Comment on above: Performed By: #### G FR, ANEU, CMP, PHOS, TROPHS, ADIFF, TSH, MG, CAION, CBC, PBNP #### [address] [address] Electrolyte Balance 5.0 mEq/L Normal 4.0-15.0 [facility] ([place]) Comment on above: Performed By: #### G FR, ANEU, CMP, PHOS, TROPHS, ADIFF, TSH, MG, CAION, CBC, PBNP #### [address] [address] Glucose [Mass/Vol] 167 mg/dL High 82-115 [facility] ([place]) Comment on above: Performed By: #### G FR, ANEU, CMP, PHOS, TROPHS, ADIFF, TSH, MG, CAION, CBC, PBNP #### [address] [address] Potassium [Moles/Vol] 4.2 mmol/L Normal 3.5-5.0 [facility] ([place]) Comment on above: Result Comment: Spec imen slightly hemolyzed. Performed By: #### G FR, ANEU, CMP, PHOS, TROPHS, ADIFF, TSH, MG, CAION, CBC, PBNP #### [address] [address] Sodium [Moles/Vol] 140 mmol/L Normal 136-145 [facility] ([place]) Comment on above: Performed By: #### G FR, ANEU, CMP, PHOS, TROPHS, ADIFF, TSH, MG, CAION, CBC, PBNP #### [address] [address] Urea nitrogen [Mass/Vol] 32.0 mg/dL High 8.0-22.0 [facility] ([place]) Comment on above: Performed By: #### G FR, ANEU, CMP, PHOS, TROPHS, ADIFF, TSH, MG, CAION, CBC, PBNP #### [address] [address] CBCon 12-28-2022 Erythrocyte distribution width (RBC) [Ratio] 15.9 % High 11.5-15.5 [facility] ([place]) Comment on above: Performed By: #### G FR, ANEU, CMP, PHOS, TROPHS, ADIFF, TSH, MG, CAION, CBC, PBNP #### [address] [address] Hematocrit (Bld) [Volume fraction] 22.6 % Low 34.0-46.0 [facility] ([place]) Comment on above: Performed By: #### G FR, ANEU, CMP, PHOS, TROPHS, ADIFF, TSH, MG, CAION, CBC, PBNP #### [place] [id number] Hgb 7.7 G/dL Low 12.0-16.0 [facility] ([place]) Comment on above: Performed By: #### G FR, ANEU, CMP, PHOS, TROPHS, ADIFF, TSH, MG, CAION, CBC, PBNP #### [place] [id number] MCH (RBC) [Entitic mass] 30.0 pg Normal 27.0-33.0 [facility] ([place]) Comment on above: Performed By: #### G FR, ANEU, CMP, PHOS, TROPHS, ADIFF, TSH, MG, CAION, CBC, PBNP #### [place] [id number] MCHC 34.1 G/dL Normal 32.0-36.0 [facility] ([place]) Comment on above: Performed By: #### G FR, ANEU, CMP, PHOS, TROPHS, ADIFF, TSH, MG, CAION, CBC, PBNP #### [place] [id number] MCV (RBC) [Entitic vol] 87.9 fL Normal 80.0-99.0 [facility] ([place]) Comment on above: Performed By: #### G FR, ANEU, CMP, PHOS, TROPHS, ADIFF, TSH, MG, CAION, CBC, PBNP #### [place] [id number] Platelet 247 10 3/mcL Normal 150-450 [facility] ([place]) Comment on above: Performed By: #### G FR, ANEU, CMP, PHOS, TROPHS, ADIFF, TSH, MG, CAION, CBC, PBNP #### [place] [id number] Platelet mean volume (Bld) [Entitic vol] 8.8 fL Normal 6.6-10.5 [facility] ([place]) Comment on above: Performed By: #### G FR, ANEU, CMP, PHOS, TROPHS, ADIFF, TSH, MG, CAION, CBC, PBNP #### [place] [address] RBC 2.57 10 6/mcL Low 4.10-5.30 [facility] ([place]) Comment on above: Performed By: #### G FR, ANEU, CMP, PHOS, TROPHS, ADIFF, TSH, MG, CAION, CBC, PBNP #### [place] [address] WBC 9.5 10 3/mcL Normal 4.5-10.8 [facility] ([place]) Comment on above: Performed By: #### G FR, ANEU, CMP, PHOS, TROPHS, ADIFF, TSH, MG, CAION, CBC, PBNP #### [place] [address] CVFLURVon 12-28-2022 FLU A PCR Negative Normal Negative [facility] ([place]) Comment on above: Result Comment: Note s Performed By: #### G FR, ANEU, CMP, PHOS, TROPHS, ADIFF, TSH, MG, CAION, CBC, PBNP #### [place] [address] FLU B PCR Negative Normal Negative [facility] ([place]) Comment on above: Result Comment: Note s Performed By: #### G FR, ANEU, CMP, PHOS, TROPHS, ADIFF, TSH, MG, CAION, CBC, PBNP #### [place] [address] RSV PCR Negative Normal Negative [facility] ([place]) Comment on above: Result Comment: Note s Performed By: #### G FR, ANEU, CMP, PHOS, TROPHS, ADIFF, TSH, MG, CAION, CBC, PBNP #### [place] [address] SARS-CoV-2 (COVID-19) RNA ADE+probe Ql (Unsp spec) Negative Normal Negative [facility] ([place]) Comment on above: Result Comment: Note s This test has been authorized by FDA under an EUA for use by authorized laboratories and has not been FDA cleared or approved. Results from the Xpert Xpress SARS-CoV-2/Flu/RSV or Xpert Xpress SARS-CoV-2 only test should be correlated with the clinical history, epidemiological data, and other data available to the clinician evaluating the patient. Performance of the Xpert Xpress SARS-CoV-2/Flu/RSV or Xpert Xpress SARS-CoV-2 only test has only been established in nasopharyngeal swab specimens. Erroneous test results might occur from improper specimen collection; failure to follow the recommended sample collection, handling, and storage procedures; technical error; or sample mix-up.False negative results may occur if virus is present at levels below the analytical limit of detection. Viral nucleic acid may persist in vivo, independent of virus viability. Detection of analyte target(s) does not imply that the corresponding virus(es) are infectious or are the causative agents for clinical symptoms.Recent patient exposure to FluMist or other live attenuated influenza vaccines may cause inaccurate positive results. Performed By: #### G FR, ANEU, CMP, PHOS, TROPHS, ADIFF, TSH, MG, CAION, CBC, PBNP #### [place] [address] LABORATORYOrdered By: Arlene Mcdonald on 12-28-2022 Blood Glucose Testing Reason Routine (12/28/22 5:00 PM) [facility] Glucose [Mass/Vol] 176 mg/dL Invalid Interpretation Code 82 - 115 mg/dL [facility] LABORATORYOrdered By: John Austin on 12-28-2022 FLUAV RNA ADE+probe Ql (Resp) Negative 5 (12/28/22 2:15 PM) Invalid Interpretation Code Negative AH [facility] SS Comment on above: Result Comment: Note s FLUBV RNA ADE+probe Ql (Resp) Negative 6 (12/28/22 2:15 PM) Invalid Interpretation Code Negative AH [facility] SS Comment on above: Result Comment: Note s RSV PCR Negative 7 (12/28/22 2:15 PM) Invalid Interpretation Code Negative AH [facility]Sero SS Comment on above: Result Comment: Note s SARS-CoV-2 (COVID-19) RNA ADE+probe Ql (Resp) Negative 3, 4 (12/28/22 2:15 PM) Invalid Interpretation Code Negative AH [facility]ero SS Comment on above: Result Comment: Note s [id number] Interpretive Data: T his test has been authorized by FDA under an EUA for use by authorized laboratories and has not been FDA cleared or approved. Results from the Xpert Xpress SARS-CoV-2/Flu/RSV or Xpert Xpress SARS-CoV-2 only test should be correlated with the clinical history, epidemiological data, and other data available to the clinician evaluating the patient. Performance of the Xpert Xpress SARS-CoV-2/Flu/RSV or Xpert Xpress SARS-CoV-2 only test has only been established in nasopharyngeal swab specimens. Erroneous test results might occur from improper specimen collection; failure to follow the recommended sample collection, handling, and storage procedures; technical error; or sample mix-up.False negative results may occur if virus is present at levels below the analytical limit of detection. Viral nucleic acid may persist in vivo, independent of virus viability. Detection of analyte target(s) does not imply that the corresponding virus(es) are infectious or are the causative agents for clinical symptoms.Recent patient exposure to FluMist or other live attenuated influenza vaccines may cause inaccurate positive results. LABORATORYOrdered By: Rosalinda Chanel on 12-28-2022 Glucose [Mass/Vol] 196 mg/dL Invalid Interpretation Code 82 - 115 mg/dL [facility] Glucose [Mass/Vol] 164 mg/dL Invalid Interpretation Code 82 - 115 mg/dL [facility] LABORATORYOrdered By: SYSTEM SYSTEM on 12-28-2022 Basophils (Bld) [#/Vol] 0.0 103/mcL Invalid Interpretation Code 0.0 - 0.3 10^3/mcL AH Workflow SS Basophils/100 WBC (Bld) 0.4 % Invalid Interpretation Code 0.0 - 2.5 % AH Workflow SS Calcium [Mass/Vol] 8.8 mg/dL Invalid Interpretation Code 8.7 - 10.4 mg/dL AH ADM SS Chloride [Moles/Vol] 106 mmol/L Invalid Interpretation Code 98 - 110 mEq/L AH ADM SS CO2 [Moles/Vol] 29 mmol/L Invalid Interpretation Code 22 - 32 mEq/L ADM SS Creatinine [Mass/Vol] 1.05 mg/dL Invalid Interpretation Code 0.50 - 1.20 mg/dL AH ADM SS Electrolyte Balance 5.0 mEq/L Invalid Interpretation Code 4.0 - 15.0 mEq/L ADM SS Eosinophils (Bld) [#/Vol] 0.4 103/mcL Invalid Interpretation Code 0.0 - 0.7 10^3/mcL Workflow SS Eosinophils/100 WBC (Bld) 4.1 % Invalid Interpretation Code 0.0 - 6.0 % AH Workflow SS Erythrocyte distribution width (RBC) [Ratio] 15.9 % Invalid Interpretation Code 11.5 - 15.5 % Workflow SS GFR/1.73 sq M.predicted among blacks MDRD (S/P/Bld) [Vol rate/Area] ml/min/1.73sqm Invalid Interpretation Code [facility] Chemistry S Comment on above: Interpretive Data: GFR Population mean for , Non- Americans Ages 20-29 = 116 mL/min/1.73 sq.m. Ages 30-39 = 107 mL/min/1.73 sq.m. Ages 40-49 = 99 mL/min/1.73 sq.m. Ages 50-59 = 93 mL/min/1.73 sq.m. Ages 60-69 = 85 mL/min/1.73 sq.m. Ages 70+ = 75 mL/min/1.73 sq.m. Chronic Kidney Disease: Less than 60 mL/min/1.73 square meters End Stage Renal Disease: Less than 15 mL/min/1.73 square meters GFR/1.73 sq M.predicted among non-blacks MDRD (S/P/Bld) [Vol rate/Area] 52 ml/min/1.73sqm Invalid Interpretation Code [employer] Chemistry S Comment on above: Interpretive Data: GFR Population mean for , Non- Americans Ages 20-29 = 116 mL/min/1.73 sq.m. Ages 30-39 = 107 mL/min/1.73 sq.m. Ages 40-49 = 99 mL/min/1.73 sq.m. Ages 50-59 = 93 mL/min/1.73 sq.m. Ages 60-69 = 85 mL/min/1.73 sq.m. Ages 70+ = 75 mL/min/1.73 sq.m. Chronic Kidney Disease: Less than 60 mL/min/1.73 square meters End Stage Renal Disease: Less than 15 mL/min/1.73 square meters Glucose [Mass/Vol] 167 mg/dL Invalid Interpretation Code 82 - 115 mg/dL ADM SS Hematocrit (Bld) [Volume fraction] 22.6 % Invalid Interpretation Code 34.0 - 46.0 % AH Workflow SS Hemoglobin (Bld) [Mass/Vol] 7.7 G/dL Invalid Interpretation Code 12.0 - 16.0 G/dL AH Workflow SS Lymphocytes (Bld) [#/Vol] 1.2 103/mcL Invalid Interpretation Code 0.9 - 4.3 10^3/mcL AH Workflow SS Lymphocytes/100 WBC (Bld) 12.2 % Invalid Interpretation Code 20.0 - 40.0 % AH Workflow SS MCH (RBC) [Entitic mass] 30.0 pg Invalid Interpretation Code 27.0 - 33.0 pg AH Workflow SS MCHC 34.1 G/dL Invalid Interpretation Code 32.0 - 36.0 G/dL AH Workflow SS MCV (RBC) [Entitic vol] 87.9 fL Invalid Interpretation Code 80.0 - 99.0 fL AH Workflow SS Monocytes (Bld) [#/Vol] 0.5 103/mcL Invalid Interpretation Code 0.1 - 1.4 10^3/mcL AH Workflow SS Monocytes/100 WBC (Bld) 4.7 % Invalid Interpretation Code 2.0 - 13.0 % AH Workflow SS Neutrophils (Bld) [#/Vol] 7.5 103/mcL Invalid Interpretation Code 2.3 - 8.1 10^3/mcL AH Workflow SS Neutrophils/100 WBC (Bld) 78.6 % Invalid Interpretation Code 50.0 - 75.0 % AH Workflow SS Platelet mean volume (Bld) [Entitic vol] 8.8 fL Invalid Interpretation Code 6.6 - 10.5 fL AH Workflow SS Platelets (Bld) [#/Vol] 247 103/mcL Invalid Interpretation Code 150 - 450 10^3/mcL AH Workflow SS Potassium [Moles/Vol] 4.2 mmol/L Invalid Interpretation Code 3.5 - 5.0 mEq/L ADM SS Comment on above: Result Comment: Spec imen slightly hemolyzed. RBC (Bld) [#/Vol] 2.57 106/mcL Invalid Interpretation Code 4.10 - 5.30 10^6/mcL Workflow SS Sodium [Moles/Vol] 140 mmol/L Invalid Interpretation Code 136 - 145 mEq/L AH ADM SS Urea nitrogen [Mass/Vol] 32.0 mg/dL Invalid Interpretation Code 8.0 - 22.0 mg/dL ADM SS Urea nitrogen/Creatinine [Mass ratio] 30.5 ratio Invalid Interpretation Code 10.0 - 22.0 ratio AH ADM SS WBC (Bld) [#/Vol] 9.5 103/mcL Invalid Interpretation Code 4.5 - 10.8 10^3/mcL Workflow SS .Auto Diffon 12-27-2022 Basophil, Absolute 0.0 10 3/mcL Normal 0.0-0.3 [facility] ([place]) Comment on above: Performed By: #### G FR, ANEU, CMP, PHOS, TROPHS, ADIFF, TSH, MG, CAION, CBC, PBNP #### [address] [address] Basophils/100 WBC (Bld) 0.5 % Normal 0.0-2.5 [facility] ([place]) Comment on above: Performed By: #### G FR, ANEU, CMP, PHOS, TROPHS, ADIFF, TSH, MG, CAION, CBC, PBNP #### [address] [address] Eosinophil, Absolute 0.3 10 3/mcL Normal 0.0-0.7 [facility] ([place]) Comment on above: Performed By: #### G FR, ANEU, CMP, PHOS, TROPHS, ADIFF, TSH, MG, CAION, CBC, PBNP #### [address] [address] Eosinophils/100 WBC (Bld) 3.9 % Normal 0.0-6.0 [facility] ([place]) Comment on above: Performed By: #### G FR, ANEU, CMP, PHOS, TROPHS, ADIFF, TSH, MG, CAION, CBC, PBNP #### [address] [address] Lymphocyte, Absolute 1.2 10 3/mcL Normal 0.9-4.3 [facility] ([place]) Comment on above: Performed By: #### G FR, ANEU, CMP, PHOS, TROPHS, ADIFF, TSH, MG, CAION, CBC, PBNP #### [address] [address] Lymphocytes/100 WBC (Bld) 13.5 % Low 20.0-40.0 [facility] ([place]) Comment on above: Performed By: #### G FR, ANEU, CMP, PHOS, TROPHS, ADIFF, TSH, MG, CAION, CBC, PBNP #### [address] [address] Monocyte, Absolute 0.5 10 3/mcL Normal 0.1-1.4 [facility] ([place]) Comment on above: Performed By: #### G FR, ANEU, CMP, PHOS, TROPHS, ADIFF, TSH, MG, CAION, CBC, PBNP #### [address] [address] Monocytes/100 WBC (Bld) 6.0 % Normal 2.0-13.0 [facility] ([place]) Comment on above: Performed By: #### G FR, ANEU, CMP, PHOS, TROPHS, ADIFF, TSH, MG, CAION, CBC, PBNP #### [address] [address] Neutrophils/100 WBC (Bld) 76.1 % High 50.0-75.0 [facility] ([place]) Comment on above: Performed By: #### G FR, ANEU, CMP, PHOS, TROPHS, ADIFF, TSH, MG, CAION, CBC, PBNP #### [address] [address] .GFRon 12-27-2022 GFR Non- 54 ml/min/1.73sqm Normal [facility] ([place]) Comment on above: Result Comment: GFR Population mean for , Non- Americans Ages 20-29 = 116 mL/min/1.73 sq.m. Ages 30-39 = 107 mL/min/1.73 sq.m. Ages 40-49 = 99 mL/min/1.73 sq.m. Ages 50-59 = 93 mL/min/1.73 sq.m. Ages 60-69 = 85 mL/min/1.73 sq.m. Ages 70+ = 75 mL/min/1.73 sq.m. Chronic Kidney Disease: Less than 60 mL/min/1.73 square meters End Stage Renal Disease: Less than 15 mL/min/1.73 square meters Performed By: #### G FR, ANEU, CMP, PHOS, TROPHS, ADIFF, TSH, MG, CAION, CBC, PBNP #### [address] [address] GFR >60 Normal [facility] ([place]) Comment on above: Result Comment: GFR Population mean for , Non- Americans Ages 20-29 = 116 mL/min/1.73 sq.m. Ages 30-39 = 107 mL/min/1.73 sq.m. Ages 40-49 = 99 mL/min/1.73 sq.m. Ages 50-59 = 93 mL/min/1.73 sq.m. Ages 60-69 = 85 mL/min/1.73 sq.m. Ages 70+ = 75 mL/min/1.73 sq.m. Chronic Kidney Disease: Less than 60 mL/min/1.73 square meters End Stage Renal Disease: Less than 15 mL/min/1.73 square meters Performed By: #### G FR, ANEU, CMP, PHOS, TROPHS, ADIFF, TSH, MG, CAION, CBC, PBNP #### [address] [address] .NEUABSon 12-27-2022 Neutrophil, Absolute 6.7 10 3/mcL Normal 2.3-8.1 [facility] ([place]) Comment on above: Performed By: #### G FR, ANEU, CMP, PHOS, TROPHS, ADIFF, TSH, MG, CAION, CBC, PBNP #### [address] [address] BMPon 12-27-2022 BUN/Creatinine Ratio 31.7 ratio High 10.0-22.0 [facility] ([place]) Comment on above: Performed By: #### G FR, ANEU, CMP, PHOS, TROPHS, ADIFF, TSH, MG, CAION, CBC, PBNP #### [address] [address] Calcium [Mass/Vol] 8.8 mg/dL Normal 8.7-10.4 [facility] ([place]) Comment on above: Performed By: #### G FR, ANEU, CMP, PHOS, TROPHS, ADIFF, TSH, MG, CAION, CBC, PBNP #### [address] [address] Chloride [Moles/Vol] 106 mmol/L Normal 98-110 [facility] ([place]) Comment on above: Performed By: #### G FR, ANEU, CMP, PHOS, TROPHS, ADIFF, TSH, MG, CAION, CBC, PBNP #### [address] [address] CO2 [Moles/Vol] 30 mmol/L Normal 22-32 [facility] ([place]) Comment on above: Performed By: #### G FR, ANEU, CMP, PHOS, TROPHS, ADIFF, TSH, MG, CAION, CBC, PBNP #### [address] [address] Creatinine [Mass/Vol] 1.01 mg/dL Normal 0.50-1.20 [facility] ([place]) Comment on above: Performed By: #### G FR, ANEU, CMP, PHOS, TROPHS, ADIFF, TSH, MG, CAION, CBC, PBNP #### [address] [address] Electrolyte Balance 6.0 mEq/L Normal 4.0-15.0 [facility] ([place]) Comment on above: Performed By: #### G FR, ANEU, CMP, PHOS, TROPHS, ADIFF, TSH, MG, CAION, CBC, PBNP #### [address] [address] Glucose [Mass/Vol] 146 mg/dL High 82-115 [facility] ([place]) Comment on above: Performed By: #### G FR, ANEU, CMP, PHOS, TROPHS, ADIFF, TSH, MG, CAION, CBC, PBNP #### [address] [address] Potassium [Moles/Vol] 3.9 mmol/L Normal 3.5-5.0 [facility] ([place]) Comment on above: Performed By: #### G FR, ANEU, CMP, PHOS, TROPHS, ADIFF, TSH, MG, CAION, CBC, PBNP #### [address] [address] Sodium [Moles/Vol] 142 mmol/L Normal 136-145 [facility] ([place]) Comment on above: Performed By: #### G FR, ANEU, CMP, PHOS, TROPHS, ADIFF, TSH, MG, CAION, CBC, PBNP #### [address] [address] Urea nitrogen [Mass/Vol] 32.0 mg/dL High 8.0-22.0 [facility] ([place]) Comment on above: Performed By: #### G FR, ANEU, CMP, PHOS, TROPHS, ADIFF, TSH, MG, CAION, CBC, PBNP #### [address] [address] CBCon 12-27-2022 Erythrocyte distribution width (RBC) [Ratio] 15.5 % Normal 11.5-15.5 [facility] ([place]) Comment on above: Performed By: #### G FR, ANEU, CMP, PHOS, TROPHS, ADIFF, TSH, MG, CAION, CBC, PBNP #### [address] [address] Hematocrit (Bld) [Volume fraction] 22.0 % Low 34.0-46.0 [facility] ([place]) Comment on above: Performed By: #### G FR, ANEU, CMP, PHOS, TROPHS, ADIFF, TSH, MG, CAION, CBC, PBNP #### [address] [address] Hgb 7.5 G/dL Low 12.0-16.0 [facility] ([place]) Comment on above: Performed By: #### G FR, ANEU, CMP, PHOS, TROPHS, ADIFF, TSH, MG, CAION, CBC, PBNP #### [place] [address] MCH (RBC) [Entitic mass] 29.4 pg Normal 27.0-33.0 [facility] ([place]) Comment on above: Performed By: #### G FR, ANEU, CMP, PHOS, TROPHS, ADIFF, TSH, MG, CAION, CBC, PBNP #### [place] [address] MCHC 34.0 G/dL Normal 32.0-36.0 [facility] ([place]) Comment on above: Performed By: #### G FR, ANEU, CMP, PHOS, TROPHS, ADIFF, TSH, MG, CAION, CBC, PBNP #### [place] [address] MCV (RBC) [Entitic vol] 86.4 fL Normal 80.0-99.0 [facility] ([place]) Comment on above: Performed By: #### G FR, ANEU, CMP, PHOS, TROPHS, ADIFF, TSH, MG, CAION, CBC, PBNP #### [place] [address] Platelet 210 10 3/mcL Normal 150-450 [facility] ([place]) Comment on above: Performed By: #### G FR, ANEU, CMP, PHOS, TROPHS, ADIFF, TSH, MG, CAION, CBC, PBNP #### [place] [address] Platelet mean volume (Bld) [Entitic vol] 8.2 fL Normal 6.6-10.5 [facility] ([place]) Comment on above: Performed By: #### G FR, ANEU, CMP, PHOS, TROPHS, ADIFF, TSH, MG, CAION, CBC, PBNP #### [place] [address] RBC 2.55 10 6/mcL Low 4.10-5.30 [facility] ([place]) Comment on above: Performed By: #### G FR, ANEU, CMP, PHOS, TROPHS, ADIFF, TSH, MG, CAION, CBC, PBNP #### [address] [address] WBC 8.8 10 3/mcL Normal 4.5-10.8 [facility] ([place]) Comment on above: Performed By: #### G FR, ANEU, CMP, PHOS, TROPHS, ADIFF, TSH, MG, CAION, CBC, PBNP #### [address] [address] LABORATORYOrdered By: SYSTEM SYSTEM on 12-27-2022 Basophils (Bld) [#/Vol] 0.0 103/mcL Invalid Interpretation Code 0.0 - 0.3 10^3/mcL Workflow SS Basophils/100 WBC (Bld) 0.5 % Invalid Interpretation Code 0.0 - 2.5 % Workflow SS Calcium [Mass/Vol] 8.8 mg/dL Invalid Interpretation Code 8.7 - 10.4 mg/dL ADM SS Chloride [Moles/Vol] 106 mmol/L Invalid Interpretation Code 98 - 110 mEq/L ADM SS CO2 [Moles/Vol] 30 mmol/L Invalid Interpretation Code 22 - 32 mEq/L ADM SS Creatinine [Mass/Vol] 1.01 mg/dL Invalid Interpretation Code 0.50 - 1.20 mg/dL ADM SS Electrolyte Balance 6.0 mEq/L Invalid Interpretation Code 4.0 - 15.0 mEq/L ADM SS Eosinophils (Bld) [#/Vol] 0.3 103/mcL Invalid Interpretation Code 0.0 - 0.7 10^3/mcL Workflow SS Eosinophils/100 WBC (Bld) 3.9 % Invalid Interpretation Code 0.0 - 6.0 % Workflow SS Erythrocyte distribution width (RBC) [Ratio] 15.5 % Invalid Interpretation Code 11.5 - 15.5 % Workflow SS GFR/1.73 sq M.predicted among blacks MDRD (S/P/Bld) [Vol rate/Area] ml/min/1.73sqm Invalid Interpretation Code Chemistry S Comment on above: Interpretive Data: GFR Population mean for , Non- Americans Ages 20-29 = 116 mL/min/1.73 sq.m. Ages 30-39 = 107 mL/min/1.73 sq.m. Ages 40-49 = 99 mL/min/1.73 sq.m. Ages 50-59 = 93 mL/min/1.73 sq.m. Ages 60-69 = 85 mL/min/1.73 sq.m. Ages 70+ = 75 mL/min/1.73 sq.m. Chronic Kidney Disease: Less than 60 mL/min/1.73 square meters End Stage Renal Disease: Less than 15 mL/min/1.73 square meters GFR/1.73 sq M.predicted among non-blacks MDRD (S/P/Bld) [Vol rate/Area] 54 ml/min/1.73sqm Invalid Interpretation Code Chemistry S Comment on above: Interpretive Data: GFR Population mean for , Non- Americans Ages 20-29 = 116 mL/min/1.73 sq.m. Ages 30-39 = 107 mL/min/1.73 sq.m. Ages 40-49 = 99 mL/min/1.73 sq.m. Ages 50-59 = 93 mL/min/1.73 sq.m. Ages 60-69 = 85 mL/min/1.73 sq.m. Ages 70+ = 75 mL/min/1.73 sq.m. Chronic Kidney Disease: Less than 60 mL/min/1.73 square meters End Stage Renal Disease: Less than 15 mL/min/1.73 square meters Glucose [Mass/Vol] 146 mg/dL Invalid Interpretation Code 82 - 115 mg/dL ADM SS Hematocrit (Bld) [Volume fraction] 22.0 % Invalid Interpretation Code 34.0 - 46.0 % Workflow SS Hemoglobin (Bld) [Mass/Vol] 7.5 G/dL Invalid Interpretation Code 12.0 - 16.0 G/dL Workflow SS Lymphocytes (Bld) [#/Vol] 1.2 103/mcL Invalid Interpretation Code 0.9 - 4.3 10^3/mcL Workflow SS Lymphocytes/100 WBC (Bld) 13.5 % Invalid Interpretation Code 20.0 - 40.0 % Workflow SS MCH (RBC) [Entitic mass] 29.4 pg Invalid Interpretation Code 27.0 - 33.0 pg Workflow SS MCHC 34.0 G/dL Invalid Interpretation Code 32.0 - 36.0 G/dL AH Workflow SS MCV (RBC) [Entitic vol] 86.4 fL Invalid Interpretation Code 80.0 - 99.0 fL AH Workflow SS Monocytes (Bld) [#/Vol] 0.5 103/mcL Invalid Interpretation Code 0.1 - 1.4 10^3/mcL AH Workflow SS Monocytes/100 WBC (Bld) 6.0 % Invalid Interpretation Code 2.0 - 13.0 % AH Workflow SS Neutrophils (Bld) [#/Vol] 6.7 103/mcL Invalid Interpretation Code 2.3 - 8.1 10^3/mcL AH Workflow SS Neutrophils/100 WBC (Bld) 76.1 % Invalid Interpretation Code 50.0 - 75.0 % AH Workflow SS Platelet mean volume (Bld) [Entitic vol] 8.2 fL Invalid Interpretation Code 6.6 - 10.5 fL AH Workflow SS Platelets (Bld) [#/Vol] 210 103/mcL Invalid Interpretation Code 150 - 450 10^3/mcL AH Workflow SS Potassium [Moles/Vol] 3.9 mmol/L Invalid Interpretation Code 3.5 - 5.0 mEq/L ADM SS RBC (Bld) [#/Vol] 2.55 106/mcL Invalid Interpretation Code 4.10 - 5.30 10^6/mcL AH Workflow SS Sodium [Moles/Vol] 142 mmol/L Invalid Interpretation Code 136 - 145 mEq/L AH ADM SS Urea nitrogen [Mass/Vol] 32.0 mg/dL Invalid Interpretation Code 8.0 - 22.0 mg/dL AH ADM SS Urea nitrogen/Creatinine [Mass ratio] 31.7 ratio Invalid Interpretation Code 10.0 - 22.0 ratio AH ADM SS WBC (Bld) [#/Vol] 8.8 103/mcL Invalid Interpretation Code 4.5 - 10.8 10^3/mcL AH Workflow SS .Auto Diffon 12-26-2022 Basophil, Absolute 0.0 10 3/mcL Normal 0.0-0.3 [facility] ([place]) Comment on above: Performed By: #### G FR, ANEU, CMP, PHOS, TROPHS, ADIFF, TSH, MG, CAION, CBC, PBNP #### [address] [address] Basophils/100 WBC (Bld) 0.3 % Normal 0.0-2.5 [facility] ([place]) Comment on above: Performed By: #### G FR, ANEU, CMP, PHOS, TROPHS, ADIFF, TSH, MG, CAION, CBC, PBNP #### [address] [address] Eosinophil, Absolute 0.3 10 3/mcL Normal 0.0-0.7 [facility] ([place]) Comment on above: Performed By: #### G FR, ANEU, CMP, PHOS, TROPHS, ADIFF, TSH, MG, CAION, CBC, PBNP #### [address] [address] Eosinophils/100 WBC (Bld) 3.4 % Normal 0.0-6.0 [facility] ([place]) Comment on above: Performed By: #### G FR, ANEU, CMP, PHOS, TROPHS, ADIFF, TSH, MG, CAION, CBC, PBNP #### [address] [id number] Lymphocyte, Absolute 1.0 10 3/mcL Normal 0.9-4.3 [facility] ([place]) Comment on above: Performed By: #### G FR, ANEU, CMP, PHOS, TROPHS, ADIFF, TSH, MG, CAION, CBC, PBNP #### [address] [address] Lymphocytes/100 WBC (Bld) 12.5 % Low 20.0-40.0 [facility] ([place]) Comment on above: Performed By: #### G FR, ANEU, CMP, PHOS, TROPHS, ADIFF, TSH, MG, CAION, CBC, PBNP #### [address] [address] Monocyte, Absolute 0.4 10 3/mcL Normal 0.1-1.4 [facility] ([place]) Comment on above: Performed By: #### G FR, ANEU, CMP, PHOS, TROPHS, ADIFF, TSH, MG, CAION, CBC, PBNP #### [address] [address] Monocytes/100 WBC (Bld) 5.5 % Normal 2.0-13.0 [facility] ([place]) Comment on above: Performed By: #### G FR, ANEU, CMP, PHOS, TROPHS, ADIFF, TSH, MG, CAION, CBC, PBNP #### [address] [address] Neutrophils/100 WBC (Bld) 78.3 % High 50.0-75.0 [facility] ([place]) Comment on above: Performed By: #### G FR, ANEU, CMP, PHOS, TROPHS, ADIFF, TSH, MG, CAION, CBC, PBNP #### [address] [address] .GFRon 12-26-2022 GFR Non- 45 ml/min/1.73sqm Normal [facility] ([place]) Comment on above: Result Comment: GFR Population mean for , Non- Americans Ages 20-29 = 116 mL/min/1.73 sq.m. Ages 30-39 = 107 mL/min/1.73 sq.m. Ages 40-49 = 99 mL/min/1.73 sq.m. Ages 50-59 = 93 mL/min/1.73 sq.m. Ages 60-69 = 85 mL/min/1.73 sq.m. Ages 70+ = 75 mL/min/1.73 sq.m. Chronic Kidney Disease: Less than 60 mL/min/1.73 square meters End Stage Renal Disease: Less than 15 mL/min/1.73 square meters Performed By: #### G FR, ANEU, CMP, PHOS, TROPHS, ADIFF, TSH, MG, CAION, CBC, PBNP #### [address] [address] GFR 54 ml/min/1.73sqm Normal [facility] ([place]) Comment on above: Result Comment: GFR Population mean for , Non- Americans Ages 20-29 = 116 mL/min/1.73 sq.m. Ages 30-39 = 107 mL/min/1.73 sq.m. Ages 40-49 = 99 mL/min/1.73 sq.m. Ages 50-59 = 93 mL/min/1.73 sq.m. Ages 60-69 = 85 mL/min/1.73 sq.m. Ages 70+ = 75 mL/min/1.73 sq.m. Chronic Kidney Disease: Less than 60 mL/min/1.73 square meters End Stage Renal Disease: Less than 15 mL/min/1.73 square meters Performed By: #### G FR, ANEU, CMP, PHOS, TROPHS, ADIFF, TSH, MG, CAION, CBC, PBNP #### [address] [address] .NEUABSon 12-26-2022 Neutrophil, Absolute 6.1 10 3/mcL Normal 2.3-8.1 [facility] ([place]) Comment on above: Performed By: #### G FR, ANEU, CMP, PHOS, TROPHS, ADIFF, TSH, MG, CAION, CBC, PBNP #### [address] [address] BMPon 12-26-2022 BUN/Creatinine Ratio 29.4 ratio High 10.0-22.0 [facility] ([place]) Comment on above: Performed By: #### G FR, ANEU, CMP, PHOS, TROPHS, ADIFF, TSH, MG, CAION, CBC, PBNP #### [address] [address] Calcium [Mass/Vol] 8.5 mg/dL Low 8.7-10.4 [facility] ([place]) Comment on above: Performed By: #### G FR, ANEU, CMP, PHOS, TROPHS, ADIFF, TSH, MG, CAION, CBC, PBNP #### [address] [address] Chloride [Moles/Vol] 106 mmol/L Normal 98-110 [facility] ([place]) Comment on above: Performed By: #### G FR, ANEU, CMP, PHOS, TROPHS, ADIFF, TSH, MG, CAION, CBC, PBNP #### [address] [address] CO2 [Moles/Vol] 28 mmol/L Normal 22-32 [facility] ([place]) Comment on above: Performed By: #### G FR, ANEU, CMP, PHOS, TROPHS, ADIFF, TSH, MG, CAION, CBC, PBNP #### [address] [address] Creatinine [Mass/Vol] 1.19 mg/dL Normal 0.50-1.20 [facility] ([place]) Comment on above: Performed By: #### G FR, ANEU, CMP, PHOS, TROPHS, ADIFF, TSH, MG, CAION, CBC, PBNP #### [address] [address] Electrolyte Balance 7.0 mEq/L Normal 4.0-15.0 [facility] ([place]) Comment on above: Performed By: #### G FR, ANEU, CMP, PHOS, TROPHS, ADIFF, TSH, MG, CAION, CBC, PBNP #### [address] [address] Glucose [Mass/Vol] 160 mg/dL High 82-115 [facility] ([place]) Comment on above: Performed By: #### G FR, ANEU, CMP, PHOS, TROPHS, ADIFF, TSH, MG, CAION, CBC, PBNP #### [address] [address] Potassium [Moles/Vol] 3.9 mmol/L Normal 3.5-5.0 [facility] ([place]) Comment on above: Performed By: #### G FR, ANEU, CMP, PHOS, TROPHS, ADIFF, TSH, MG, CAION, CBC, PBNP #### [address] [address] Sodium [Moles/Vol] 141 mmol/L Normal 136-145 [facility] ([place]) Comment on above: Performed By: #### G FR, ANEU, CMP, PHOS, TROPHS, ADIFF, TSH, MG, CAION, CBC, PBNP #### [address] [address] Urea nitrogen [Mass/Vol] 35.0 mg/dL High 8.0-22.0 [facility] ([place]) Comment on above: Performed By: #### G FR, ANEU, CMP, PHOS, TROPHS, ADIFF, TSH, MG, CAION, CBC, PBNP #### [place] [id number] CBCon 12-26-2022 Erythrocyte distribution width (RBC) [Ratio] 15.7 % High 11.5-15.5 [facility] ([place]) Comment on above: Performed By: #### G FR, ANEU, CMP, PHOS, TROPHS, ADIFF, TSH, MG, CAION, CBC, PBNP #### [place] [address] Hematocrit (Bld) [Volume fraction] 23.3 % Low 34.0-46.0 [facility] ([place]) Comment on above: Performed By: #### G FR, ANEU, CMP, PHOS, TROPHS, ADIFF, TSH, MG, CAION, CBC, PBNP #### [place] [address] Hgb 7.8 G/dL Low 12.0-16.0 [facility] ([place]) Comment on above: Performed By: #### G FR, ANEU, CMP, PHOS, TROPHS, ADIFF, TSH, MG, CAION, CBC, PBNP #### [place] [address] MCH (RBC) [Entitic mass] 29.0 pg Normal 27.0-33.0 [facility] ([place]) Comment on above: Performed By: #### G FR, ANEU, CMP, PHOS, TROPHS, ADIFF, TSH, MG, CAION, CBC, PBNP #### [place] [id number] MCHC 33.6 G/dL Normal 32.0-36.0 [facility] ([place]) Comment on above: Performed By: #### G FR, ANEU, CMP, PHOS, TROPHS, ADIFF, TSH, MG, CAION, CBC, PBNP #### [place] [address] MCV (RBC) [Entitic vol] 86.1 fL Normal 80.0-99.0 [facility] ([place]) Comment on above: Performed By: #### G FR, ANEU, CMP, PHOS, TROPHS, ADIFF, TSH, MG, CAION, CBC, PBNP #### [place] [id number] Platelet 182 10 3/mcL Normal 150-450 [facility] ([place]) Comment on above: Performed By: #### G FR, ANEU, CMP, PHOS, TROPHS, ADIFF, TSH, MG, CAION, CBC, PBNP #### [place] [address] Platelet mean volume (Bld) [Entitic vol] 8.1 fL Normal 6.6-10.5 [facility] ([place]) Comment on above: Performed By: #### G FR, ANEU, CMP, PHOS, TROPHS, ADIFF, TSH, MG, CAION, CBC, PBNP #### [place] [address] RBC 2.70 10 6/mcL Low 4.10-5.30 [facility] ([place]) Comment on above: Performed By: #### G FR, ANEU, CMP, PHOS, TROPHS, ADIFF, TSH, MG, CAION, CBC, PBNP #### [place] [address] WBC 7.9 10 3/mcL Normal 4.5-10.8 [facility] ([place]) Comment on above: Performed By: #### G FR, ANEU, CMP, PHOS, TROPHS, ADIFF, TSH, MG, CAION, CBC, PBNP #### [place] [address] Nora 12-26-2022 Ferritin [Mass/Vol] 88.2 ng/mL Normal 8.0-252.0 [facility] ([place]) Comment on above: Order Comment: Add o n lab Performed By: #### G FR, ANEU, CMP, PHOS, TROPHS, ADIFF, TSH, MG, CAION, CBC, PBNP #### [place] [address] FESon 12-26-2022 Iron [Mass/Vol] 23 ug/dL Low 50-170 [facility] ([place]) Comment on above: Order Comment: Add o n lab Performed By: #### G FR, ANEU, CMP, PHOS, TROPHS, ADIFF, TSH, MG, CAION, CBC, PBNP #### [facility] [address] [place] [address] Iron Sat 9 % Normal [facility] ([place]) Comment on above: Order Comment: Add o n lab Performed By: #### G FR, ANEU, CMP, PHOS, TROPHS, ADIFF, TSH, MG, CAION, CBC, PBNP #### [facility] [address] [place] [address] TIBC 244 mcg/dL Low 250-500 [facility] ([place]) Comment on above: Order Comment: Add o n lab Performed By: #### G FR, ANEU, CMP, PHOS, TROPHS, ADIFF, TSH, MG, CAION, CBC, PBNP #### [facility] [address] [place] [address] LABORATORYOrdered By: June Wetzel on 12-26-2022 Blood Glucose Testing Reason Routine (12/26/22 9:07 PM) [facility] Blood Glucose Testing Reason Routine (12/26/22 4:24 PM) [facility] LABORATORYOrdered By: SYSTEM SYSTEM on 12-26-2022 Basophils (Bld) [#/Vol] 0.0 103/mcL Invalid Interpretation Code 0.0 - 0.3 10^3/mcL AH Workflow SS Basophils/100 WBC (Bld) 0.3 % Invalid Interpretation Code 0.0 - 2.5 % AH Workflow SS Calcium [Mass/Vol] 8.5 mg/dL Invalid Interpretation Code 8.7 - 10.4 mg/dL AH ADM SS Chloride [Moles/Vol] 106 mmol/L Invalid Interpretation Code 98 - 110 mEq/L ADM SS CO2 [Moles/Vol] 28 mmol/L Invalid Interpretation Code 22 - 32 mEq/L ADM SS Creatinine [Mass/Vol] 1.19 mg/dL Invalid Interpretation Code 0.50 - 1.20 mg/dL ADM SS Electrolyte Balance 7.0 mEq/L Invalid Interpretation Code 4.0 - 15.0 mEq/L ADM SS Eosinophils (Bld) [#/Vol] 0.3 103/mcL Invalid Interpretation Code 0.0 - 0.7 10^3/mcL Workflow SS Eosinophils/100 WBC (Bld) 3.4 % Invalid Interpretation Code 0.0 - 6.0 % Workflow SS Erythrocyte distribution width (RBC) [Ratio] 15.7 % Invalid Interpretation Code 11.5 - 15.5 % Workflow SS Ferritin [Mass/Vol] 88.2 ng/mL Invalid Interpretation Code 8.0 - 252.0 ng/mL ADM SS GFR/1.73 sq M.predicted among blacks MDRD (S/P/Bld) [Vol rate/Area] 54 ml/min/1.73sqm Invalid Interpretation Code [employer] [facility] S Comment on above: Interpretive Data: GFR Population mean for , Non- Americans Ages 20-29 = 116 mL/min/1.73 sq.m. Ages 30-39 = 107 mL/min/1.73 sq.m. Ages 40-49 = 99 mL/min/1.73 sq.m. Ages 50-59 = 93 mL/min/1.73 sq.m. Ages 60-69 = 85 mL/min/1.73 sq.m. Ages 70+ = 75 mL/min/1.73 sq.m. Chronic Kidney Disease: Less than 60 mL/min/1.73 square meters End Stage Renal Disease: Less than 15 mL/min/1.73 square meters GFR/1.73 sq M.predicted among non-blacks MDRD (S/P/Bld) [Vol rate/Area] 45 ml/min/1.73sqm Invalid Interpretation Code [employer] [facility] S Comment on above: Interpretive Data: GFR Population mean for , Non- Americans Ages 20-29 = 116 mL/min/1.73 sq.m. Ages 30-39 = 107 mL/min/1.73 sq.m. Ages 40-49 = 99 mL/min/1.73 sq.m. Ages 50-59 = 93 mL/min/1.73 sq.m. Ages 60-69 = 85 mL/min/1.73 sq.m. Ages 70+ = 75 mL/min/1.73 sq.m. Chronic Kidney Disease: Less than 60 mL/min/1.73 square meters End Stage Renal Disease: Less than 15 mL/min/1.73 square meters Glucose [Mass/Vol] 160 mg/dL Invalid Interpretation Code 82 - 115 mg/dL ADM SS Hematocrit (Bld) [Volume fraction] 23.3 % Invalid Interpretation Code 34.0 - 46.0 % AH Workflow SS Hemoglobin (Bld) [Mass/Vol] 7.8 G/dL Invalid Interpretation Code 12.0 - 16.0 G/dL AH Workflow SS Iron [Mass/Vol] 23 ug/dL Invalid Interpretation Code 50 - 170 mcg/dL ADM SS Iron binding capacity [Mass/Vol] 244 mcg/dL Invalid Interpretation Code 250 - 500 mcg/dL ADM SS Iron saturation [Mass fraction] 9 1 Invalid Interpretation Code ADM SS Lymphocytes (Bld) [#/Vol] 1.0 103/mcL Invalid Interpretation Code 0.9 - 4.3 10^3/mcL Workflow SS Lymphocytes/100 WBC (Bld) 12.5 % Invalid Interpretation Code 20.0 - 40.0 % Workflow SS MCH (RBC) [Entitic mass] 29.0 pg Invalid Interpretation Code 27.0 - 33.0 pg Workflow SS MCHC 33.6 G/dL Invalid Interpretation Code 32.0 - 36.0 G/dL Workflow SS MCV (RBC) [Entitic vol] 86.1 fL Invalid Interpretation Code 80.0 - 99.0 fL Workflow SS Monocytes (Bld) [#/Vol] 0.4 103/mcL Invalid Interpretation Code 0.1 - 1.4 10^3/mcL Workflow SS Monocytes/100 WBC (Bld) 5.5 % Invalid Interpretation Code 2.0 - 13.0 % Workflow SS Neutrophils (Bld) [#/Vol] 6.1 103/mcL Invalid Interpretation Code 2.3 - 8.1 10^3/mcL Workflow SS Neutrophils/100 WBC (Bld) 78.3 % Invalid Interpretation Code 50.0 - 75.0 % Workflow SS Platelet mean volume (Bld) [Entitic vol] 8.1 fL Invalid Interpretation Code 6.6 - 10.5 fL Workflow SS Platelets (Bld) [#/Vol] 182 103/mcL Invalid Interpretation Code 150 - 450 10^3/mcL Workflow SS Potassium [Moles/Vol] 3.9 mmol/L Invalid Interpretation Code 3.5 - 5.0 mEq/L ADM SS RBC (Bld) [#/Vol] 2.70 106/mcL Invalid Interpretation Code 4.10 - 5.30 10^6/mcL AH Workflow SS Sodium [Moles/Vol] 141 mmol/L Invalid Interpretation Code 136 - 145 mEq/L AH ADM SS Urea nitrogen [Mass/Vol] 35.0 mg/dL Invalid Interpretation Code 8.0 - 22.0 mg/dL AH ADM SS Urea nitrogen/Creatinine [Mass ratio] 29.4 ratio Invalid Interpretation Code 10.0 - 22.0 ratio AH ADM SS WBC (Bld) [#/Vol] 7.9 103/mcL Invalid Interpretation Code 4.5 - 10.8 10^3/mcL Workflow SS .Auto Diffon 12-25-2022 Basophil, Absolute 0.0 10 3/mcL Normal 0.0-0.3 [facility] ([place]) Comment on above: Performed By: #### G FR, ANEU, CMP, PHOS, TROPHS, ADIFF, TSH, MG, CAION, CBC, PBNP #### [address] [address] Basophils/100 WBC (Bld) 0.3 % Normal 0.0-2.5 [facility] ([place]) Comment on above: Performed By: #### G FR, ANEU, CMP, PHOS, TROPHS, ADIFF, TSH, MG, CAION, CBC, PBNP #### [address] [address] Eosinophil, Absolute 0.2 10 3/mcL Normal 0.0-0.7 [facility] ([place]) Comment on above: Performed By: #### G FR, ANEU, CMP, PHOS, TROPHS, ADIFF, TSH, MG, CAION, CBC, PBNP #### [address] [address] Eosinophils/100 WBC (Bld) 2.0 % Normal 0.0-6.0 [facility] ([place]) Comment on above: Performed By: #### G FR, ANEU, CMP, PHOS, TROPHS, ADIFF, TSH, MG, CAION, CBC, PBNP #### [address] [address] Lymphocyte, Absolute 1.3 10 3/mcL Normal 0.9-4.3 [facility] ([place]) Comment on above: Performed By: #### G FR, ANEU, CMP, PHOS, TROPHS, ADIFF, TSH, MG, CAION, CBC, PBNP #### [address] [address] Lymphocytes/100 WBC (Bld) 11.6 % Low 20.0-40.0 [facility] ([place]) Comment on above: Performed By: #### G FR, ANEU, CMP, PHOS, TROPHS, ADIFF, TSH, MG, CAION, CBC, PBNP #### [address] [address] Monocyte, Absolute 0.7 10 3/mcL Normal 0.1-1.4 [facility] ([place]) Comment on above: Performed By: #### G FR, ANEU, CMP, PHOS, TROPHS, ADIFF, TSH, MG, CAION, CBC, PBNP #### [address] [address] Monocytes/100 WBC (Bld) 6.8 % Normal 2.0-13.0 [facility] ([place]) Comment on above: Performed By: #### G FR, ANEU, CMP, PHOS, TROPHS, ADIFF, TSH, MG, CAION, CBC, PBNP #### [address] [address] Neutrophils/100 WBC (Bld) 79.3 % High 50.0-75.0 [facility] ([place]) Comment on above: Performed By: #### G FR, ANEU, CMP, PHOS, TROPHS, ADIFF, TSH, MG, CAION, CBC, PBNP #### [address] [address] .GFRon 12-25-2022 GFR 46 ml/min/1.73sqm Normal [facility] ([place]) Comment on above: Result Comment: GFR Population mean for , Non- Americans Ages 20-29 = 116 mL/min/1.73 sq.m. Ages 30-39 = 107 mL/min/1.73 sq.m. Ages 40-49 = 99 mL/min/1.73 sq.m. Ages 50-59 = 93 mL/min/1.73 sq.m. Ages 60-69 = 85 mL/min/1.73 sq.m. Ages 70+ = 75 mL/min/1.73 sq.m. Chronic Kidney Disease: Less than 60 mL/min/1.73 square meters End Stage Renal Disease: Less than 15 mL/min/1.73 square meters Performed By: #### G FR, ANEU, CMP, PHOS, TROPHS, ADIFF, TSH, MG, CAION, CBC, PBNP #### [address] [address] GFR Non- 38 ml/min/1.73sqm Normal [facility] ([place]) Comment on above: Result Comment: GFR Population mean for , Non- Americans Ages 20-29 = 116 mL/min/1.73 sq.m. Ages 30-39 = 107 mL/min/1.73 sq.m. Ages 40-49 = 99 mL/min/1.73 sq.m. Ages 50-59 = 93 mL/min/1.73 sq.m. Ages 60-69 = 85 mL/min/1.73 sq.m. Ages 70+ = 75 mL/min/1.73 sq.m. Chronic Kidney Disease: Less than 60 mL/min/1.73 square meters End Stage Renal Disease: Less than 15 mL/min/1.73 square meters Performed By: #### G FR, ANEU, CMP, PHOS, TROPHS, ADIFF, TSH, MG, CAION, CBC, PBNP #### [address] [address] .NEUABSon 12-25-2022 Neutrophil, Absolute 8.7 10 3/mcL High 2.3-8.1 [facility] ([place]) Comment on above: Performed By: #### G FR, ANEU, CMP, PHOS, TROPHS, ADIFF, TSH, MG, CAION, CBC, PBNP #### [address] [address] BGon 12-25-2022 Barometric Pressure 733 mmHg Normal [facility] ([place]) Comment on above: Performed By: #### G FR, ANEU, CMP, PHOS, TROPHS, ADIFF, TSH, MG, CAION, CBC, PBNP #### [address] [address] Base excess Calc (Bld) [Moles/Vol] 2.2 mmol/L Normal [facility] ([place]) Comment on above: Performed By: #### G FR, ANEU, CMP, PHOS, TROPHS, ADIFF, TSH, MG, CAION, CBC, PBNP #### [place] [id number] CO2 [Moles/Vol] 28.3 mmol/L Normal 22.0-30.0 [facility] ([place]) Comment on above: Performed By: #### G FR, ANEU, CMP, PHOS, TROPHS, ADIFF, TSH, MG, CAION, CBC, PBNP #### [place] [id number] HCO3 (Bld) [Moles/Vol] 26.9 mmol/L Normal 21.0-29.0 [facility] ([place]) Comment on above: Performed By: #### G FR, ANEU, CMP, PHOS, TROPHS, ADIFF, TSH, MG, CAION, CBC, PBNP #### [place] [id number] Oxygen (Bld) [Partial pressure] 68.6 mm[Hg] Low 74.0-108.0 [facility] ([place]) Comment on above: Performed By: #### G FR, ANEU, CMP, PHOS, TROPHS, ADIFF, TSH, MG, CAION, CBC, PBNP #### [place] [id number] Oxygen saturation in Blood 94.0 % Normal 92.0-96.0 [facility] ([place]) Comment on above: Performed By: #### G FR, ANEU, CMP, PHOS, TROPHS, ADIFF, TSH, MG, CAION, CBC, PBNP #### [address] [address] pCO2 42.5 mmHg Normal 32.0-46.0 [facility] ([place]) Comment on above: Performed By: #### G FR, ANEU, CMP, PHOS, TROPHS, ADIFF, TSH, MG, CAION, CBC, PBNP #### [address] [address] pH (Bld) 7.420 [pH] Normal 7.380-7.460 [facility] ([place]) Comment on above: Performed By: #### G FR, ANEU, CMP, PHOS, TROPHS, ADIFF, TSH, MG, CAION, CBC, PBNP #### [address] [address] BMPon 12-25-2022 BUN/Creatinine Ratio 27.0 ratio High 10.0-22.0 [facility] ([place]) Comment on above: Performed By: #### G FR, ANEU, CMP, PHOS, TROPHS, ADIFF, TSH, MG, CAION, CBC, PBNP #### [address] [address] Calcium [Mass/Vol] 8.6 mg/dL Low 8.7-10.4 [facility] ([place]) Comment on above: Performed By: #### G FR, ANEU, CMP, PHOS, TROPHS, ADIFF, TSH, MG, CAION, CBC, PBNP #### [address] [address] Chloride [Moles/Vol] 104 mmol/L Normal 98-110 [facility] ([place]) Comment on above: Performed By: #### G FR, ANEU, CMP, PHOS, TROPHS, ADIFF, TSH, MG, CAION, CBC, PBNP #### [address] [address] CO2 [Moles/Vol] 27 mmol/L Normal 22-32 [facility] ([place]) Comment on above: Performed By: #### G FR, ANEU, CMP, PHOS, TROPHS, ADIFF, TSH, MG, CAION, CBC, PBNP #### [address] [address] Creatinine [Mass/Vol] 1.37 mg/dL High 0.50-1.20 [facility] ([place]) Comment on above: Performed By: #### G FR, ANEU, CMP, PHOS, TROPHS, ADIFF, TSH, MG, CAION, CBC, PBNP #### [place] [address] Electrolyte Balance 7.0 mEq/L Normal 4.0-15.0 [facility] ([place]) Comment on above: Performed By: #### G FR, ANEU, CMP, PHOS, TROPHS, ADIFF, TSH, MG, CAION, CBC, PBNP #### [place] [address] Glucose [Mass/Vol] 179 mg/dL High 82-115 [facility] ([place]) Comment on above: Performed By: #### G FR, ANEU, CMP, PHOS, TROPHS, ADIFF, TSH, MG, CAION, CBC, PBNP #### [place] [address] Potassium [Moles/Vol] 4.3 mmol/L Normal 3.5-5.0 [facility] ([place]) Comment on above: Performed By: #### G FR, ANEU, CMP, PHOS, TROPHS, ADIFF, TSH, MG, CAION, CBC, PBNP #### [place] [address] Sodium [Moles/Vol] 138 mmol/L Normal 136-145 [facility] ([place]) Comment on above: Performed By: #### G FR, ANEU, CMP, PHOS, TROPHS, ADIFF, TSH, MG, CAION, CBC, PBNP #### [place] [id number] Urea nitrogen [Mass/Vol] 37.0 mg/dL High 8.0-22.0 [facility] ([place]) Comment on above: Performed By: #### G FR, ANEU, CMP, PHOS, TROPHS, ADIFF, TSH, MG, CAION, CBC, PBNP #### [address] [address] CBCon 12-25-2022 Erythrocyte distribution width (RBC) [Ratio] 16.0 % High 11.5-15.5 [facility] ([place]) Comment on above: Performed By: #### G FR, ANEU, CMP, PHOS, TROPHS, ADIFF, TSH, MG, CAION, CBC, PBNP #### [place] [address] Hematocrit (Bld) [Volume fraction] 20.8 % Low 34.0-46.0 [facility] ([place]) Comment on above: Performed By: #### G FR, ANEU, CMP, PHOS, TROPHS, ADIFF, TSH, MG, CAION, CBC, PBNP #### [place] [address] Hgb 7.0 G/dL Low 12.0-16.0 [facility] ([place]) Comment on above: Performed By: #### G FR, ANEU, CMP, PHOS, TROPHS, ADIFF, TSH, MG, CAION, CBC, PBNP #### [place] [address] MCH (RBC) [Entitic mass] 28.8 pg Normal 27.0-33.0 [facility] ([place]) Comment on above: Performed By: #### G FR, ANEU, CMP, PHOS, TROPHS, ADIFF, TSH, MG, CAION, CBC, PBNP #### [place] [address] MCHC 33.8 G/dL Normal 32.0-36.0 [facility] ([place]) Comment on above: Performed By: #### G FR, ANEU, CMP, PHOS, TROPHS, ADIFF, TSH, MG, CAION, CBC, PBNP #### [place] [address] MCV (RBC) [Entitic vol] 85.4 fL Normal 80.0-99.0 [facility] ([place]) Comment on above: Performed By: #### G FR, ANEU, CMP, PHOS, TROPHS, ADIFF, TSH, MG, CAION, CBC, PBNP #### [address] [address] Platelet 222 10 3/mcL Normal 150-450 [facility] ([place]) Comment on above: Performed By: #### G FR, ANEU, CMP, PHOS, TROPHS, ADIFF, TSH, MG, CAION, CBC, PBNP #### [address] [address] Platelet mean volume (Bld) [Entitic vol] 8.3 fL Normal 6.6-10.5 [facility] ([place]) Comment on above: Performed By: #### G FR, ANEU, CMP, PHOS, TROPHS, ADIFF, TSH, MG, CAION, CBC, PBNP #### [place] [id number] RBC 2.44 10 6/mcL Low 4.10-5.30 [facility] ([place]) Comment on above: Performed By: #### G FR, ANEU, CMP, PHOS, TROPHS, ADIFF, TSH, MG, CAION, CBC, PBNP #### [place] [id number] WBC 11.0 10 3/mcL High 4.5-10.8 [facility] ([place]) Comment on above: Performed By: #### G FR, ANEU, CMP, PHOS, TROPHS, ADIFF, TSH, MG, CAION, CBC, PBNP #### [place] [address] LABORATORYOrdered By: Susu Alberto on 12-25-2022 Natriuretic peptide.B prohormone N-Terminal [Mass/Vol] 1675 pg/mL Invalid Interpretation Code 0 - 900 pg/mL AH Auto Chem SS Comment on above: Interpretive Data: N T-proBNP results of less than 300 pg/mL effectively rules out acute congestive heart failure with 99% negative predictive value. LABORATORYOrdered By: Felipe Walls on 12-25-2022 RBC Product Ready RBC Ready for Pickup (12/25/22 11:19 AM) Invalid Interpretation Code BB Manual SS LABORATORYOrdered By: Mikael Aragon on 12-25-2022 Barometric Pressure 733 mm[Hg] Invalid Interpretation Code AH Auto Chem SS Base excess Calc (Bld) [Moles/Vol] 2.2 mmol/L Invalid Interpretation Code AH Auto Chem SS CO2 (Bld) [Partial pressure] 42.5 mm[Hg] Invalid Interpretation Code 32.0 - 46.0 mm Hg AH Auto Chem SS CO2 [Moles/Vol] 28.3 mmol/L Invalid Interpretation Code 22.0 - 30.0 mmol/L AH Auto Chem SS HCO3 (Bld) [Moles/Vol] 26.9 mmol/L Invalid Interpretation Code 21.0 - 29.0 mmol/L AH Auto Chem SS Oxygen (Bld) [Partial pressure] 68.6 mm[Hg] Invalid Interpretation Code 74.0 - 108.0 mm Hg AH Auto Chem SS pH (Bld) 7.420 [pH] Invalid Interpretation Code 7.380 - 7.460 AH Auto Chem SS PBNPon 12-25-2022 Natriuretic peptide B (Bld) [Mass/Vol] 1675 pg/mL High 0-900 [facility] ([place]) Comment on above: Order Comment: add o n lab Result Comment: NT-p roBNP results of less than 300 pg/mL effectively rules out acute congestive heart failure with 99% negative predictive value. Performed By: #### G FR, ANEU, CMP, PHOS, TROPHS, ADIFF, TSH, MG, CAION, CBC, PBNP #### [address] [address] RBC (Product)on 12-25-2022 RBC Product Ready RBC Ready for Pickup Normal [facility] ([place]) Comment on above: Performed By: #### G FR, ANEU, CMP, PHOS, TROPHS, ADIFF, TSH, MG, CAION, CBC, PBNP #### [address] [address] .Auto Diffon 12-24-2022 Basophil, Absolute 0.0 10 3/mcL Normal 0.0-0.3 [facility] ([place]) Comment on above: Performed By: #### G FR, ANEU, CMP, PHOS, TROPHS, ADIFF, TSH, MG, CAION, CBC, PBNP #### [address] [address] Basophils/100 WBC (Bld) 0.2 % Normal 0.0-2.5 A [facility] ([place]) Comment on above: Performed By: #### G FR, ANEU, CMP, PHOS, TROPHS, ADIFF, TSH, MG, CAION, CBC, PBNP #### [address] [address] Eosinophil, Absolute 0.0 10 3/mcL Normal 0.0-0.7 [facility] ([place]) Comment on above: Performed By: #### G FR, ANEU, CMP, PHOS, TROPHS, ADIFF, TSH, MG, CAION, CBC, PBNP #### [address] [address] Eosinophils/100 WBC (Bld) 0.1 % Normal 0.0-6.0 [facility] ([place]) Comment on above: Performed By: #### G FR, ANEU, CMP, PHOS, TROPHS, ADIFF, TSH, MG, CAION, CBC, PBNP #### [address] [address] Lymphocyte, Absolute 1.3 10 3/mcL Normal 0.9-4.3 [facility] ([place]) Comment on above: Performed By: #### G FR, ANEU, CMP, PHOS, TROPHS, ADIFF, TSH, MG, CAION, CBC, PBNP #### [address] [address] Lymphocytes/100 WBC (Bld) 10.8 % Low 20.0-40.0 [facility] ([place]) Comment on above: Performed By: #### G FR, ANEU, CMP, PHOS, TROPHS, ADIFF, TSH, MG, CAION, CBC, PBNP #### [address] [address] Monocyte, Absolute 0.7 10 3/mcL Normal 0.1-1.4 [facility] ([place]) Comment on above: Performed By: #### G FR, ANEU, CMP, PHOS, TROPHS, ADIFF, TSH, MG, CAION, CBC, PBNP #### [address] [address] Monocytes/100 WBC (Bld) 6.2 % Normal 2.0-13.0 A [facility] ([place]) Comment on above: Performed By: #### G FR, ANEU, CMP, PHOS, TROPHS, ADIFF, TSH, MG, CAION, CBC, PBNP #### [address] [address] Neutrophils/100 WBC (Bld) 82.7 % High 50.0-75.0 [facility] ([place]) Comment on above: Performed By: #### G FR, ANEU, CMP, PHOS, TROPHS, ADIFF, TSH, MG, CAION, CBC, PBNP #### [address] [address] .GFRon 12-24-2022 GFR 51 ml/min/1.73sqm Normal [facility] ([place]) Comment on above: Result Comment: GFR Population mean for , Non- Americans Ages 20-29 = 116 mL/min/1.73 sq.m. Ages 30-39 = 107 mL/min/1.73 sq.m. Ages 40-49 = 99 mL/min/1.73 sq.m. Ages 50-59 = 93 mL/min/1.73 sq.m. Ages 60-69 = 85 mL/min/1.73 sq.m. Ages 70+ = 75 mL/min/1.73 sq.m. Chronic Kidney Disease: Less than 60 mL/min/1.73 square meters End Stage Renal Disease: Less than 15 mL/min/1.73 square meters Performed By: #### G FR, ANEU, CMP, PHOS, TROPHS, ADIFF, TSH, MG, CAION, CBC, PBNP #### [address] [address] GFR Non- 42 ml/min/1.73sqm Normal [facility] ([place]) Comment on above: Result Comment: GFR Population mean for , Non- Americans Ages 20-29 = 116 mL/min/1.73 sq.m. Ages 30-39 = 107 mL/min/1.73 sq.m. Ages 40-49 = 99 mL/min/1.73 sq.m. Ages 50-59 = 93 mL/min/1.73 sq.m. Ages 60-69 = 85 mL/min/1.73 sq.m. Ages 70+ = 75 mL/min/1.73 sq.m. Chronic Kidney Disease: Less than 60 mL/min/1.73 square meters End Stage Renal Disease: Less than 15 mL/min/1.73 square meters Performed By: #### G FR, ANEU, CMP, PHOS, TROPHS, ADIFF, TSH, MG, CAION, CBC, PBNP #### [address] [address] .NEUABSon 12-24-2022 Neutrophil, Absolute 10.0 10 3/mcL High 2.3-8.1 A [facility] ([place]) Comment on above: Performed By: #### G FR, ANEU, CMP, PHOS, TROPHS, ADIFF, TSH, MG, CAION, CBC, PBNP #### [address] [address] BMPon 12-24-2022 BUN/Creatinine Ratio 24.8 ratio High 10.0-22.0 [facility] ([place]) Comment on above: Performed By: #### G FR, ANEU, CMP, PHOS, TROPHS, ADIFF, TSH, MG, CAION, CBC, PBNP #### [address] [address] Calcium [Mass/Vol] 8.6 mg/dL Low 8.7-10.4 [facility] ([place]) Comment on above: Performed By: #### G FR, ANEU, CMP, PHOS, TROPHS, ADIFF, TSH, MG, CAION, CBC, PBNP #### [address] [address] Chloride [Moles/Vol] 106 mmol/L Normal 98-110 [facility] ([place]) Comment on above: Performed By: #### G FR, ANEU, CMP, PHOS, TROPHS, ADIFF, TSH, MG, CAION, CBC, PBNP #### [address] [address] CO2 [Moles/Vol] 27 mmol/L Normal 22-32 [facility] ([place]) Comment on above: Performed By: #### G FR, ANEU, CMP, PHOS, TROPHS, ADIFF, TSH, MG, CAION, CBC, PBNP #### [address] [address] Creatinine [Mass/Vol] 1.25 mg/dL High 0.50-1.20 [facility] ([place]) Comment on above: Performed By: #### G FR, ANEU, CMP, PHOS, TROPHS, ADIFF, TSH, MG, CAION, CBC, PBNP #### [address] [address] Electrolyte Balance 6.0 mEq/L Normal 4.0-15.0 [facility] ([place]) Comment on above: Performed By: #### G FR, ANEU, CMP, PHOS, TROPHS, ADIFF, TSH, MG, CAION, CBC, PBNP #### [address] [address] Glucose [Mass/Vol] 143 mg/dL High 82-115 [facility] ([place]) Comment on above: Performed By: #### G FR, ANEU, CMP, PHOS, TROPHS, ADIFF, TSH, MG, CAION, CBC, PBNP #### [address] [address] Potassium [Moles/Vol] 4.6 mmol/L Normal 3.5-5.0 [facility] ([place]) Comment on above: Result Comment: Spec imen slightly hemolyzed. Performed By: #### G FR, ANEU, CMP, PHOS, TROPHS, ADIFF, TSH, MG, CAION, CBC, PBNP #### [address] [address] Sodium [Moles/Vol] 139 mmol/L Normal 136-145 [facility] ([place]) Comment on above: Performed By: #### G FR, ANEU, CMP, PHOS, TROPHS, ADIFF, TSH, MG, CAION, CBC, PBNP #### [address] [address] Urea nitrogen [Mass/Vol] 31.0 mg/dL High 8.0-22.0 [facility] ([place]) Comment on above: Performed By: #### G FR, ANEU, CMP, PHOS, TROPHS, ADIFF, TSH, MG, CAION, CBC, PBNP #### [place] [address] CBCon 12-24-2022 Erythrocyte distribution width (RBC) [Ratio] 15.7 % High 11.5-15.5 [facility] ([place]) Comment on above: Performed By: #### G FR, ANEU, CMP, PHOS, TROPHS, ADIFF, TSH, MG, CAION, CBC, PBNP #### [place] [address] Hematocrit (Bld) [Volume fraction] 23.2 % Low 34.0-46.0 [facility] ([place]) Comment on above: Performed By: #### G FR, ANEU, CMP, PHOS, TROPHS, ADIFF, TSH, MG, CAION, CBC, PBNP #### [place] [address] Hgb 7.5 G/dL Low 12.0-16.0 [facility] ([place]) Comment on above: Performed By: #### G FR, ANEU, CMP, PHOS, TROPHS, ADIFF, TSH, MG, CAION, CBC, PBNP #### [place] [address] MCH (RBC) [Entitic mass] 27.6 pg Normal 27.0-33.0 [facility] ([place]) Comment on above: Performed By: #### G FR, ANEU, CMP, PHOS, TROPHS, ADIFF, TSH, MG, CAION, CBC, PBNP #### [place] [address] MCHC 32.4 G/dL Normal 32.0-36.0 [facility] ([place]) Comment on above: Performed By: #### G FR, ANEU, CMP, PHOS, TROPHS, ADIFF, TSH, MG, CAION, CBC, PBNP #### [place] [id number] MCV (RBC) [Entitic vol] 85.2 fL Normal 80.0-99.0 A [facility] ([place]) Comment on above: Performed By: #### G FR, ANEU, CMP, PHOS, TROPHS, ADIFF, TSH, MG, CAION, CBC, PBNP #### [place] [address] Platelet 252 10 3/mcL Normal 150-450 [facility] ([place]) Comment on above: Performed By: #### G FR, ANEU, CMP, PHOS, TROPHS, ADIFF, TSH, MG, CAION, CBC, PBNP #### [place] [address] Platelet mean volume (Bld) [Entitic vol] 8.1 fL Normal 6.6-10.5 [facility] ([place]) Comment on above: Performed By: #### G FR, ANEU, CMP, PHOS, TROPHS, ADIFF, TSH, MG, CAION, CBC, PBNP #### [place] [address] RBC 2.73 10 6/mcL Low 4.10-5.30 [facility] ([place]) Comment on above: Performed By: #### G FR, ANEU, CMP, PHOS, TROPHS, ADIFF, TSH, MG, CAION, CBC, PBNP #### [place] [address] WBC 12.1 10 3/mcL High 4.5-10.8 [facility] ([place]) Comment on above: Performed By: #### G FR, ANEU, CMP, PHOS, TROPHS, ADIFF, TSH, MG, CAION, CBC, PBNP #### [place] [address] HHon 12-24-2022 Hematocrit (Bld) [Volume fraction] 21.1 % Low 34.0-46.0 [facility] ([place]) Comment on above: Performed By: #### G FR, ANEU, CMP, PHOS, TROPHS, ADIFF, TSH, MG, CAION, CBC, PBNP #### [address] [address] Hgb 7.0 G/dL Low 12.0-16.0 [facility] ([place]) Comment on above: Performed By: #### G FR, ANEU, CMP, PHOS, TROPHS, ADIFF, TSH, MG, CAION, CBC, PBNP #### [place] [address] Hematocrit (Bld) [Volume fraction] 21.0 % Low 34.0-46.0 [facility] ([place]) Comment on above: Performed By: #### G FR, ANEU, CMP, PHOS, TROPHS, ADIFF, TSH, MG, CAION, CBC, PBNP #### [place] [address] Hgb 7.1 G/dL Low 12.0-16.0 [facility] ([place]) Comment on above: Performed By: #### G FR, ANEU, CMP, PHOS, TROPHS, ADIFF, TSH, MG, CAION, CBC, PBNP #### [place] [id number] XR CHEST 2 VIEWSon 3 XR CHEST 2 VIEWS ORIGINAL EXAMINATION: TWO XRAY VIEWS OF THE CHEST12/24/2022 10:51 am COMPARISON: 12/22/2022 HISTORY: ORDERING SYSTEM PROVIDED HISTORY: Reason for Exam: hypoxia FINDINGS: Enlargement of the cardiac silhouette noted.Lung volumes are low bibasilar atelectasis noted. Eventration of the right diaphragm seen. No pneumothorax. No large pleural effusion. No aggressive osseous lesions identified.Degenerat shikha changes seen of the spine and shoulders. Fusion plate noted in the cervical spine. IMPRESSION: Low lung volumes with hypoventilatory change. Interpreted by: José Mckeon MD Preliminary Report By: José Mckeon MD Electronically signed By José Mckeon MD Dictated Date: 12/24/2022 10:53:18 AM Prelim Date: 12/24/2022 10:54:45 AM Sign Date: 12/24/2022 10:54:45 AM Ordering Provider: JANI Robertson [facility] ([place]) XR FLUORO 1-2 HRS TECH TIMEo n 12-24-2022 XR FLUORO 1-2 HRS TECH TIME ORIGINAL EXAMINATION: SPOT FLUOROSCOPIC IMAGES 12/23/2022 11:23 am TECHNIQUE: Fluoroscopy was provided by the radiology department for procedure. Radiologist was not present during examination. FLUOROSCOPY DOSE AND TYPE: Radiation Exposure Index: 83.57 mGy air kerma. 14 intraoperative images obtained. Fluoroscopy time was 3.58 minutes, COMPARISON: None HISTORY: ORDERING SYSTEM PROVIDED HISTORY: Reason for Exam: rt hip fx Intraprocedural imaging. FINDINGS: Images show open repair of the intertrochanteric and subtrochanteric femoral fracture. IMPRESSION: Intraprocedural fluoroscopic spot images as above. See separate procedure report for more information. Interpreted by: José Mckeon MD Preliminary Report By: José Mckeon MD Electronically signed By José Mckeon MD Dictated Date: 12/24/2022 8:13:14 AM Prelim Date: 12/24/2022 8:15:41 AM Sign Date: 12/24/2022 8:15:41 AM Ordering Provider: JONH Robertson [facility] ([place]) .Auto Diffon 12-23-2022 Basophil, Absolute 0.0 10 3/mcL Normal 0.0-0.3 [facility] ([place]) Comment on above: Performed By: #### G FR, ANEU, CMP, PHOS, TROPHS, ADIFF, TSH, MG, CAION, CBC, PBNP #### [address] [address] Basophils/100 WBC (Bld) 0.3 % Normal 0.0-2.5 A [facility] ([place]) Comment on above: Performed By: #### G FR, ANEU, CMP, PHOS, TROPHS, ADIFF, TSH, MG, CAION, CBC, PBNP #### [address] [address] Eosinophil, Absolute 0.0 10 3/mcL Normal 0.0-0.7 [facility] ([place]) Comment on above: Performed By: #### G FR, ANEU, CMP, PHOS, TROPHS, ADIFF, TSH, MG, CAION, CBC, PBNP #### [address] [address] Eosinophils/100 WBC (Bld) 0.5 % Normal 0.0-6.0 [facility] ([place]) Comment on above: Performed By: #### G FR, ANEU, CMP, PHOS, TROPHS, ADIFF, TSH, MG, CAION, CBC, PBNP #### [address] [address] Lymphocyte, Absolute 1.0 10 3/mcL Normal 0.9-4.3 [facility] ([place]) Comment on above: Performed By: #### G FR, ANEU, CMP, PHOS, TROPHS, ADIFF, TSH, MG, CAION, CBC, PBNP #### [address] [address] Lymphocytes/100 WBC (Bld) 10.9 % Low 20.0-40.0 [facility] ([place]) Comment on above: Performed By: #### G FR, ANEU, CMP, PHOS, TROPHS, ADIFF, TSH, MG, CAION, CBC, PBNP #### [address] [address] Monocyte, Absolute 0.6 10 3/mcL Normal 0.1-1.4 [facility] ([place]) Comment on above: Performed By: #### G FR, ANEU, CMP, PHOS, TROPHS, ADIFF, TSH, MG, CAION, CBC, PBNP #### [address] [address] Monocytes/100 WBC (Bld) 7.2 % Normal 2.0-13.0 A [facility] ([place]) Comment on above: Performed By: #### G FR, ANEU, CMP, PHOS, TROPHS, ADIFF, TSH, MG, CAION, CBC, PBNP #### [address] [address] Neutrophils/100 WBC (Bld) 81.1 % High 50.0-75.0 [facility] ([place]) Comment on above: Performed By: #### G FR, ANEU, CMP, PHOS, TROPHS, ADIFF, TSH, MG, CAION, CBC, PBNP #### [address] [address] .GFRon 12-23-2022 GFR >60 Normal [facility] ([place]) Comment on above: Result Comment: GFR Population mean for , Non- Americans Ages 20-29 = 116 mL/min/1.73 sq.m. Ages 30-39 = 107 mL/min/1.73 sq.m. Ages 40-49 = 99 mL/min/1.73 sq.m. Ages 50-59 = 93 mL/min/1.73 sq.m. Ages 60-69 = 85 mL/min/1.73 sq.m. Ages 70+ = 75 mL/min/1.73 sq.m. Chronic Kidney Disease: Less than 60 mL/min/1.73 square meters End Stage Renal Disease: Less than 15 mL/min/1.73 square meters Performed By: #### G FR, ANEU, CMP, PHOS, TROPHS, ADIFF, TSH, MG, CAION, CBC, PBNP #### [address] [address] GFR Non- >60 Normal [facility] ([place]) Comment on above: Result Comment: GFR Population mean for , Non- Americans Ages 20-29 = 116 mL/min/1.73 sq.m. Ages 30-39 = 107 mL/min/1.73 sq.m. Ages 40-49 = 99 mL/min/1.73 sq.m. Ages 50-59 = 93 mL/min/1.73 sq.m. Ages 60-69 = 85 mL/min/1.73 sq.m. Ages 70+ = 75 mL/min/1.73 sq.m. Chronic Kidney Disease: Less than 60 mL/min/1.73 square meters End Stage Renal Disease: Less than 15 mL/min/1.73 square meters Performed By: #### G FR, ANEU, CMP, PHOS, TROPHS, ADIFF, TSH, MG, CAION, CBC, PBNP #### [address] [address] .NEUABSon 12-23-2022 Neutrophil, Absolute 7.3 10 3/mcL Normal 2.3-8.1 [facility] ([place]) Comment on above: Performed By: #### G FR, ANEU, CMP, PHOS, TROPHS, ADIFF, TSH, MG, CAION, CBC, PBNP #### [address] [address] ABO/Rh (Gel)on 12-23-2022 ABO/Rh Interp Positive Invalid Interpretation Code [facility] ([place]) Comment on above: Performed By: #### G FR, ANEU, CMP, PHOS, TROPHS, ADIFF, TSH, MG, CAION, CBC, PBNP #### [address] [address] ABS (Gel)on 12-23-2022 ABSC Interp (Gel) Negative Normal [facility] ([place]) Comment on above: Performed By: #### G FR, ANEU, CMP, PHOS, TROPHS, ADIFF, TSH, MG, CAION, CBC, PBNP #### [address] [address] BMPon 12-23-2022 BUN/Creatinine Ratio 27.7 ratio High 10.0-22.0 [facility] ([place]) Comment on above: Performed By: #### G FR, ANEU, CMP, PHOS, TROPHS, ADIFF, TSH, MG, CAION, CBC, PBNP #### [address] [address] Calcium [Mass/Vol] 9.1 mg/dL Normal 8.7-10.4 [facility] ([place]) Comment on above: Performed By: #### G FR, ANEU, CMP, PHOS, TROPHS, ADIFF, TSH, MG, CAION, CBC, PBNP #### [address] [address] Chloride [Moles/Vol] 110 mmol/L Normal 98-110 [facility] ([place]) Comment on above: Performed By: #### G FR, ANEU, CMP, PHOS, TROPHS, ADIFF, TSH, MG, CAION, CBC, PBNP #### [address] [address] CO2 [Moles/Vol] 26 mmol/L Normal 22-32 [facility] ([place]) Comment on above: Performed By: #### G FR, ANEU, CMP, PHOS, TROPHS, ADIFF, TSH, MG, CAION, CBC, PBNP #### [address] [address] Creatinine [Mass/Vol] 0.83 mg/dL Normal 0.50-1.20 [facility] ([place]) Comment on above: Performed By: #### G FR, ANEU, CMP, PHOS, TROPHS, ADIFF, TSH, MG, CAION, CBC, PBNP #### [address] [address] Electrolyte Balance 7.0 mEq/L Normal 4.0-15.0 [facility] ([place]) Comment on above: Performed By: #### G FR, ANEU, CMP, PHOS, TROPHS, ADIFF, TSH, MG, CAION, CBC, PBNP #### [address] [address] Glucose [Mass/Vol] 171 mg/dL High 82-115 [facility] ([place]) Comment on above: Performed By: #### G FR, ANEU, CMP, PHOS, TROPHS, ADIFF, TSH, MG, CAION, CBC, PBNP #### [address] [address] Potassium [Moles/Vol] 4.2 mmol/L Normal 3.5-5.0 [facility] ([place]) Comment on above: Performed By: #### G FR, ANEU, CMP, PHOS, TROPHS, ADIFF, TSH, MG, CAION, CBC, PBNP #### [address] [address] Sodium [Moles/Vol] 143 mmol/L Normal 136-145 [facility] ([place]) Comment on above: Performed By: #### G FR, ANEU, CMP, PHOS, TROPHS, ADIFF, TSH, MG, CAION, CBC, PBNP #### [address] [address] Urea nitrogen [Mass/Vol] 23.0 mg/dL High 8.0-22.0 [facility] ([place]) Comment on above: Performed By: #### G FR, ANEU, CMP, PHOS, TROPHS, ADIFF, TSH, MG, CAION, CBC, PBNP #### [address] [address] CBCon 12-23-2022 Erythrocyte distribution width (RBC) [Ratio] 15.7 % High 11.5-15.5 [facility] ([place]) Comment on above: Performed By: #### G FR, ANEU, CMP, PHOS, TROPHS, ADIFF, TSH, MG, CAION, CBC, PBNP #### [place] [address] Hematocrit (Bld) [Volume fraction] 31.8 % Low 34.0-46.0 [facility] ([place]) Comment on above: Performed By: #### G FR, ANEU, CMP, PHOS, TROPHS, ADIFF, TSH, MG, CAION, CBC, PBNP #### [place] [address] Hgb 10.4 G/dL Low 12.0-16.0 [facility] ([place]) Comment on above: Performed By: #### G FR, ANEU, CMP, PHOS, TROPHS, ADIFF, TSH, MG, CAION, CBC, PBNP #### [place] [address] MCH (RBC) [Entitic mass] 28.0 pg Normal 27.0-33.0 [facility] ([place]) Comment on above: Performed By: #### G FR, ANEU, CMP, PHOS, TROPHS, ADIFF, TSH, MG, CAION, CBC, PBNP #### [place] [id number] MCHC 32.8 G/dL Normal 32.0-36.0 [facility] ([place]) Comment on above: Performed By: #### G FR, ANEU, CMP, PHOS, TROPHS, ADIFF, TSH, MG, CAION, CBC, PBNP #### [place] [id number] MCV (RBC) [Entitic vol] 85.4 fL Normal 80.0-99.0 [facility] ([place]) Comment on above: Performed By: #### G FR, ANEU, CMP, PHOS, TROPHS, ADIFF, TSH, MG, CAION, CBC, PBNP #### [address] [address] Platelet 239 10 3/mcL Normal 150-450 [facility] ([place]) Comment on above: Performed By: #### G FR, ANEU, CMP, PHOS, TROPHS, ADIFF, TSH, MG, CAION, CBC, PBNP #### [address] [address] Platelet mean volume (Bld) [Entitic vol] 8.0 fL Normal 6.6-10.5 [facility] ([place]) Comment on above: Performed By: #### G FR, ANEU, CMP, PHOS, TROPHS, ADIFF, TSH, MG, CAION, CBC, PBNP #### [address] [address] RBC 3.72 10 6/mcL Low 4.10-5.30 [facility] ([place]) Comment on above: Performed By: #### G FR, ANEU, CMP, PHOS, TROPHS, ADIFF, TSH, MG, CAION, CBC, PBNP #### [address] [address] WBC 8.9 10 3/mcL Normal 4.5-10.8 [facility] ([place]) Comment on above: Performed By: #### G FR, ANEU, CMP, PHOS, TROPHS, ADIFF, TSH, MG, CAION, CBC, PBNP #### [address] [address] .Auto Diffon --2022 Basophil, Absolute 0.0 10 3/mcL Normal 0.0-0.2 [facility] ([place]) Comment on above: Performed By: #### G FR, ANEU, CMP, PHOS, TROPHS, ADIFF, TSH, MG, CAION, CBC, PBNP #### [place] [address] Basophils/100 WBC (Bld) 0.4 % Normal 0.0-2.5 [facility] ([place]) Comment on above: Performed By: #### G FR, ANEU, CMP, PHOS, TROPHS, ADIFF, TSH, MG, CAION, CBC, PBNP #### [address] [address] Eosinophil, Absolute 0.2 10 3/mcL Normal 0.0-0.4 [facility] ([place]) Comment on above: Performed By: #### G FR, ANEU, CMP, PHOS, TROPHS, ADIFF, TSH, MG, CAION, CBC, PBNP #### [address] [address] Eosinophils/100 WBC (Bld) 2.6 % Normal 0.0-7.0 [facility] ([place]) Comment on above: Performed By: #### G FR, ANEU, CMP, PHOS, TROPHS, ADIFF, TSH, MG, CAION, CBC, PBNP #### [address] [address] Lymphocyte, Absolute 0.9 10 3/mcL Normal 0.8-3.9 [facility] ([place]) Comment on above: Performed By: #### G FR, ANEU, CMP, PHOS, TROPHS, ADIFF, TSH, MG, CAION, CBC, PBNP #### [address] [address] Lymphocytes/100 WBC (Bld) 9.9 % Low 10.0-50.0 [facility] ([place]) Comment on above: Performed By: #### G FR, ANEU, CMP, PHOS, TROPHS, ADIFF, TSH, MG, CAION, CBC, PBNP #### [address] [address] Monocyte, Absolute 0.5 10 3/mcL Normal 0.2-1.0 [facility] ([place] Comment on above: Performed By: #### G FR, ANEU, CMP, PHOS, TROPHS, ADIFF, TSH, MG, CAION, CBC, PBNP #### [address] [address] Monocytes/100 WBC (Bld) 4.9 % Normal 1.7-13.0 [facility] ([place]) Comment on above: Performed By: #### G FR, ANEU, CMP, PHOS, TROPHS, ADIFF, TSH, MG, CAION, CBC, PBNP #### [address] [address] Neutrophils/100 WBC (Bld) 82.2 % High 37.0-80.0 [facility] ([place]) Comment on above: Performed By: #### G FR, ANEU, CMP, PHOS, TROPHS, ADIFF, TSH, MG, CAION, CBC, PBNP #### [address] [address] .GFRon 12-22-2022 GFR Non- 46 ml/min/1.73sqm Normal [facility] ([place]) Comment on above: Result Comment: GFR Population mean for , Non- Americans Ages 20-29 = 116 mL/min/1.73 sq.m. Ages 30-39 = 107 mL/min/1.73 sq.m. Ages 40-49 = 99 mL/min/1.73 sq.m. Ages 50-59 = 93 mL/min/1.73 sq.m. Ages 60-69 = 85 mL/min/1.73 sq.m. Ages 70+ = 75 mL/min/1.73 sq.m. Chronic Kidney Disease: Less than 60 mL/min/1.73 square meters End Stage Renal Disease: Less than 15 mL/min/1.73 square meters Performed By: #### G FR, ANEU, CMP, PHOS, TROPHS, ADIFF, TSH, MG, CAION, CBC, PBNP #### [address] [address] GFR 56 ml/min/1.73sqm Normal [facility] ([place]) Comment on above: Result Comment: GFR Population mean for , Non- Americans Ages 20-29 = 116 mL/min/1.73 sq.m. Ages 30-39 = 107 mL/min/1.73 sq.m. Ages 40-49 = 99 mL/min/1.73 sq.m. Ages 50-59 = 93 mL/min/1.73 sq.m. Ages 60-69 = 85 mL/min/1.73 sq.m. Ages 70+ = 75 mL/min/1.73 sq.m. Chronic Kidney Disease: Less than 60 mL/min/1.73 square meters End Stage Renal Disease: Less than 15 mL/min/1.73 square meters Performed By: #### G FR, ANEU, CMP, PHOS, TROPHS, ADIFF, TSH, MG, CAION, CBC, PBNP #### [address] [address] .MDWon 12-22-2022 Monocyte Distribution Width 19.84 Normal 0.00-20.00 [facility] ([place]) Comment on above: Result Comment: For ED adult patients suspected of sepsis, MDW<=20.0 does not rule out sepsis or risk of sepsis Performed By: #### G FR, ANEU, CMP, PHOS, TROPHS, ADIFF, TSH, MG, CAION, CBC, PBNP #### [place] [address] .NEUABSon 12-22-2022 Neutrophil, Absolute 7.9 10 3/mcL High 2.9-6.2 [facility] ([place]) Comment on above: Performed By: #### G FR, ANEU, CMP, PHOS, TROPHS, ADIFF, TSH, MG, CAION, CBC, PBNP #### [place] [address] Chris 12-22-2022 Ethanol Level <3 Normal 0-3 [facility] ([place]) Comment on above: Performed By: #### G FR, ANEU, CMP, PHOS, TROPHS, ADIFF, TSH, MG, CAION, CBC, PBNP #### [place] [address] APTTon 12-22-2022 aPTT Coag (Bld) [Time] 33.1 s Normal 25.0-35.0 [facility] ([place]) Comment on above: Result Comment: For Heparin anticoagulation therapy, the recommended therapeutic range is: 50.6-87.4 seconds. Patients on heparin therapy may have an extreme result. Performed By: #### G FR, ANEU, CMP, PHOS, TROPHS, ADIFF, TSH, MG, CAION, CBC, PBNP #### [address] [address] Heparin dose (APTT) DTI Normal [facility] ([place]) Comment on above: Performed By: #### G FR, ANEU, CMP, PHOS, TROPHS, ADIFF, TSH, MG, CAION, CBC, PBNP #### [address] [address] BMPon 12-22-2022 BUN/Creatinine Ratio 23 ratio Normal 7-27 [facility] ([place]) Comment on above: Performed By: #### G FR, ANEU, CMP, PHOS, TROPHS, ADIFF, TSH, MG, CAION, CBC, PBNP #### [address] [address] Calcium [Mass/Vol] 9.1 mg/dL Normal 8.4-10.2 [facility] ([place]) Comment on above: Performed By: #### G FR, ANEU, CMP, PHOS, TROPHS, ADIFF, TSH, MG, CAION, CBC, PBNP #### [address] [address] Chloride [Moles/Vol] 105 mmol/L Normal 98-107 [facility] ([place] Comment on above: Performed By: #### G FR, ANEU, CMP, PHOS, TROPHS, ADIFF, TSH, MG, CAION, CBC, PBNP #### [address] [address] CO2 [Moles/Vol] 25 mmol/L Normal 23-31 [facility] ([place]) Comment on above: Performed By: #### G FR, ANEU, CMP, PHOS, TROPHS, ADIFF, TSH, MG, CAION, CBC, PBNP #### [address] [address] Creatinine [Mass/Vol] 1.16 mg/dL High 0.55-1.02 [facility] ([place]) Comment on above: Performed By: #### G FR, ANEU, CMP, PHOS, TROPHS, ADIFF, TSH, MG, CAION, CBC, PBNP #### [address] [address] Electrolyte Balance 12.0 mEq/L Normal 4.0-15.0 [facility] ([place] Comment on above: Performed By: #### G FR, ANEU, CMP, PHOS, TROPHS, ADIFF, TSH, MG, CAION, CBC, PBNP #### [address] [address] Glucose [Mass/Vol] 239 mg/dL High 83-110 [facility] ([place]) Comment on above: Performed By: #### G FR, ANEU, CMP, PHOS, TROPHS, ADIFF, TSH, MG, CAION, CBC, PBNP #### [address] [address] Potassium [Moles/Vol] 4.2 mmol/L Normal 3.5-5.1 [facility] ([place] Comment on above: Performed By: #### G FR, ANEU, CMP, PHOS, TROPHS, ADIFF, TSH, MG, CAION, CBC, PBNP #### [address] [address] Sodium [Moles/Vol] 142 mmol/L Normal 136-145 [facility] ([place]) Comment on above: Performed By: #### G FR, ANEU, CMP, PHOS, TROPHS, ADIFF, TSH, MG, CAION, CBC, PBNP #### [address] [address] Urea nitrogen [Mass/Vol] 27 mg/dL High 7-18 [facility] ([place]) Comment on above: Performed By: #### G FR, ANEU, CMP, PHOS, TROPHS, ADIFF, TSH, MG, CAION, CBC, PBNP #### [address] [address] CBCon 12-22-2022 Erythrocyte distribution width (RBC) [Ratio] 15.9 % High 11.5-14.5 [facility] ([place]) Comment on above: Performed By: #### G FR, ANEU, CMP, PHOS, TROPHS, ADIFF, TSH, MG, CAION, CBC, PBNP #### [place] [id number] Hematocrit (Bld) [Volume fraction] 33.7 % Low 37.0-47.0 [facility] ([place]) Comment on above: Performed By: #### G FR, ANEU, CMP, PHOS, TROPHS, ADIFF, TSH, MG, CAION, CBC, PBNP #### [place] [address] Hgb 11.1 G/dL Low 12.0-16.0 [facility] ([place]) Comment on above: Performed By: #### G FR, ANEU, CMP, PHOS, TROPHS, ADIFF, TSH, MG, CAION, CBC, PBNP #### [place] [id number] MCH (RBC) [Entitic mass] 27.6 pg Normal 27.0-31.2 [facility] ([place]) Comment on above: Performed By: #### G FR, ANEU, CMP, PHOS, TROPHS, ADIFF, TSH, MG, CAION, CBC, PBNP #### [place] [id number] MCHC 33.0 G/dL Normal 33.0-37.0 [facility] ([place]) Comment on above: Performed By: #### G FR, ANEU, CMP, PHOS, TROPHS, ADIFF, TSH, MG, CAION, CBC, PBNP #### [place] [address] MCV (RBC) [Entitic vol] 83.7 fL Normal 80.0-94.0 [facility] ([place]) Comment on above: Performed By: #### G FR, ANEU, CMP, PHOS, TROPHS, ADIFF, TSH, MG, CAION, CBC, PBNP #### [place] [id number] Platelet 253 10 3/mcL Normal 130-400 [facility] ([place]) Comment on above: Performed By: #### G FR, ANEU, CMP, PHOS, TROPHS, ADIFF, TSH, MG, CAION, CBC, PBNP #### [place] [address] Platelet mean volume (Bld) [Entitic vol] 7.8 fL Normal 7.4-10.4 [facility] ([place]) Comment on above: Performed By: #### G FR, ANEU, CMP, PHOS, TROPHS, ADIFF, TSH, MG, CAION, CBC, PBNP #### [place] [address] RBC 4.03 10 6/mcL Low 4.20-5.40 [facility] ([place]) Comment on above: Performed By: #### G FR, ANEU, CMP, PHOS, TROPHS, ADIFF, TSH, MG, CAION, CBC, PBNP #### [place] [id number] WBC 9.6 10 3/mcL Normal 4.6-10.8 [facility] ([place]) Comment on above: Performed By: #### G FR, ANEU, CMP, PHOS, TROPHS, ADIFF, TSH, MG, CAION, CBC, PBNP #### [place] [id number] Gel ABOon 12-22-2022 ABO/Rh Interp Positive Invalid Interpretation Code [facility] ([place]) Comment on above: Performed By: #### G FR, ANEU, CMP, PHOS, TROPHS, ADIFF, TSH, MG, CAION, CBC, PBNP #### [place] [address] Gel ABSon 12-22-2022 Antibody Screen Gel Negative Normal [facility] ([place]) Comment on above: Performed By: #### G FR, ANEU, CMP, PHOS, TROPHS, ADIFF, TSH, MG, CAION, CBC, PBNP #### [place] [address] LABORATORYOrdered By: Boogie Voss on 12-22-2022 ABO and Rh group Nom (Bld) Blood group A Rh(D) positive Invalid Interpretation Code AH BB Auto SS Blood group antibody screen Ql Negative ABSC (12/22/22 9:38 PM) Invalid Interpretation Code AH BB Auto SS LABORATORYOrdered By: Sandy León on 12-22-2022 ABO/Rh Interp Positive Invalid Interpretation Code AO BB SS Antibody Screen Gel Negative ABSC (12/22/22 6:20 PM) Invalid Interpretation Code AO BB SS LABORATORYOrdered By: Mikael Law on 12-22-2022 aPTT Coag (PPP) [Time] 33.1 s Invalid Interpretation Code 25.0 - 35.0 seconds AO [facility] SS Comment on above: Interpretive Data: F or Heparin anticoagulation therapy, the recommended therapeutic range is: 50.6-87.4 seconds. Patients on heparin therapy may have an extreme result. Heparin dose (APTT) DTI (12/22/22 6:20 PM) Invalid Interpretation Code AO [facility] SS INR Coag (PPP) [Relative time] 1.5 {INR} Invalid Interpretation Code AO [facility] SS Comment on above: Interpretive Data: [employer] (CHEST, 1991, 102:[id number]) recommended therapeutic range for oral anticoagulant therapy is: LOW RISK: Prophylaxis of venous thrombosis INR: 2.0-3.0 Treatment of pulmonary embolism 2.0-3.0 Prevention of systemic embolism 2.0-3.0 HIGH RISK: Mechanical prosthetic valves 2.5-3.5 PT Coag (PPP) [Time] 16.9 s Invalid Interpretation Code 9.1 - 14.2 seconds AO [facility] SS LABORATORYOrdered By: SYSTEM SYSTEM on 12-22-2022 Basophil, Absolute 0.0 103/mcL Invalid Interpretation Code 0.0 - 0.2 10^3/mcL AO Workflow SS Basophils/100 WBC (Bld) 0.4 % Invalid Interpretation Code 0.0 - 2.5 % AO Workflow SS Calcium [Mass/Vol] 9.1 mg/dL Invalid Interpretation Code 8.4 - 10.2 mg/dL AO ADM SS Chloride [Moles/Vol] 105 mmol/L Invalid Interpretation Code 98 - 107 mmol/L AO ADM SS CO2 [Moles/Vol] 25 mmol/L Invalid Interpretation Code 23 - 31 mmol/L AO ADM SS Creatinine [Mass/Vol] 1.16 mg/dL Invalid Interpretation Code 0.55 - 1.02 mg/dL AO ADM SS Electrolyte Balance 12.0 mEq/L Invalid Interpretation Code 4.0 - 15.0 mEq/L AO ADM SS Eosinophil, Absolute 0.2 103/mcL Invalid Interpretation Code 0.0 - 0.4 10^3/mcL AO Workflow SS Eosinophils/100 WBC (Bld) 2.6 % Invalid Interpretation Code 0.0 - 7.0 % AO Workflow SS Erythrocyte distribution width (RBC) [Ratio] 15.9 % Invalid Interpretation Code 11.5 - 14.5 % AO Workflow SS Ethanol [Mass/Vol] mg/dL Invalid Interpretation Code 0 - 3 mg/dL AO ADM SS GFR/1.73 sq M.predicted among blacks MDRD (S/P/Bld) [Vol rate/Area] 56 ml/min/1.73sqm Invalid Interpretation Code AO Chemistry S Comment on above: Interpretive Data: GFR Population mean for , Non- Americans Ages 20-29 = 116 mL/min/1.73 sq.m. Ages 30-39 = 107 mL/min/1.73 sq.m. Ages 40-49 = 99 mL/min/1.73 sq.m. Ages 50-59 = 93 mL/min/1.73 sq.m. Ages 60-69 = 85 mL/min/1.73 sq.m. Ages 70+ = 75 mL/min/1.73 sq.m. Chronic Kidney Disease: Less than 60 mL/min/1.73 square meters End Stage Renal Disease: Less than 15 mL/min/1.73 square meters GFR/1.73 sq M.predicted among non-blacks MDRD (S/P/Bld) [Vol rate/Area] 46 ml/min/1.73sqm Invalid Interpretation Code AO Chemistry S Comment on above: Interpretive Data: GFR Population mean for , Non- Americans Ages 20-29 = 116 mL/min/1.73 sq.m. Ages 30-39 = 107 mL/min/1.73 sq.m. Ages 40-49 = 99 mL/min/1.73 sq.m. Ages 50-59 = 93 mL/min/1.73 sq.m. Ages 60-69 = 85 mL/min/1.73 sq.m. Ages 70+ = 75 mL/min/1.73 sq.m. Chronic Kidney Disease: Less than 60 mL/min/1.73 square meters End Stage Renal Disease: Less than 15 mL/min/1.73 square meters Glucose [Mass/Vol] 239 mg/dL Invalid Interpretation Code 83 - 110 mg/dL AO ADM SS Hematocrit (Bld) [Volume fraction] 33.7 % Invalid Interpretation Code 37.0 - 47.0 % AO Workflow SS Hemoglobin (Bld) [Mass/Vol] 11.1 G/dL Invalid Interpretation Code 12.0 - 16.0 G/dL AO Workflow SS Lymphocyte, Absolute 0.9 103/mcL Invalid Interpretation Code 0.8 - 3.9 10^3/mcL AO Workflow SS Lymphocytes/100 WBC (Bld) 9.9 % Invalid Interpretation Code 10.0 - 50.0 % AO Workflow SS MCH (RBC) [Entitic mass] 27.6 pg Invalid Interpretation Code 27.0 - 31.2 pg AO Workflow SS MCHC 33.0 G/dL Invalid Interpretation Code 33.0 - 37.0 G/dL AO Workflow SS MCV (RBC) [Entitic vol] 83.7 fL Invalid Interpretation Code 80.0 - 94.0 fL AO Workflow SS Monocyte distribution width Auto (Bld) [Entitic vol] 19.84 1 Invalid Interpretation Code 0.00 - 20.00 AO Workflow SS Comment on above: Result Comment: For ED adult patients suspected of sepsis, MDW<=20.0 does not rule out sepsis or risk of sepsis Monocyte, Absolute 0.5 103/mcL Invalid Interpretation Code 0.2 - 1.0 10^3/mcL AO Workflow SS Monocytes/100 WBC (Bld) 4.9 % Invalid Interpretation Code 1.7 - 13.0 % AO Workflow SS Neutrophil, Absolute 7.9 103/mcL Invalid Interpretation Code 2.9 - 6.2 10^3/mcL AO Workflow SS Neutrophils/100 WBC (Bld) 82.2 % Invalid Interpretation Code 37.0 - 80.0 % AO Workflow SS Platelet mean volume (Bld) [Entitic vol] 7.8 fL Invalid Interpretation Code 7.4 - 10.4 fL AO Workflow SS Platelets (Bld) [#/Vol] 253 103/mcL Invalid Interpretation Code 130 - 400 10^3/mcL AO Workflow SS Potassium [Moles/Vol] 4.2 mmol/L Invalid Interpretation Code 3.5 - 5.1 mmol/L AO ADM SS RBC (Bld) [#/Vol] 4.03 106/mcL Invalid Interpretation Code 4.20 - 5.40 10^6/mcL AO Workflow SS Sodium [Moles/Vol] 142 mmol/L Invalid Interpretation Code 136 - 145 mmol/L AO ADM SS Urea nitrogen [Mass/Vol] 27 mg/dL Invalid Interpretation Code 7 - 18 mg/dL AO ADM SS Urea nitrogen/Creatinine [Mass ratio] 23 ratio Invalid Interpretation Code 7 - 27 ratio AO ADM SS WBC (Bld) [#/Vol] 9.6 103/mcL Invalid Interpretation Code 4.6 - 10.8 10^3/mcL AO Workflow SS PROon 12-22-2022 PT Coag (PPP) [Time] 16.9 s High 9.1-14.2 [facility] ([place]) Comment on above: Performed By: #### G FR, ANEU, CMP, PHOS, TROPHS, ADIFF, TSH, MG, CAION, CBC, PBNP #### [address] [address] PT International Ratio 1.5 Normal [facility] ([place]) Comment on above: Result Comment: [employer] (CHEST, 1992, 102:[id number]) recommended therapeutic range for oral anticoagulant therapy is: LOW RISK: Prophylaxis of venous thrombosis INR: 2.0-3.0 Treatment of pulmonary embolism 2.0-3.0 Prevention of systemic embolism 2.0-3.0 HIGH RISK: Mechanical prosthetic valves 2.5-3.5 Performed By: #### G FR, ANEU, CMP, PHOS, TROPHS, ADIFF, TSH, MG, CAION, CBC, PBNP #### [address] [address] XR CHEST 1 VIEWon 12-22-2022 XR CHEST 1 VIEW ORIGINAL EXAMINATION: ONE XRAY VIEW OF THE CHEST12/22/2022 7:11 pm CHEST ONE VIEW AP/PA COMPARISON: None HISTORY: ORDERING SYSTEM PROVIDED HISTORY: Reason for Exam: pain; trauma patient FINDINGS: The cardiomediastinal contours are normal. The aorta is atherosclerotic. There is no focal consolidation, pleural effusion, or pneumothorax. No acute osseous abnormality. Surgical hardware seen in the cervical spine. There is a radiopaque metallic object over the right chest, which is probably a breast biopsy clip. IMPRESSION: No acute radiographic findings. Interpreted by: Felipe Dawkins MD Preliminary Report By: Felipe Dawkins MD Electronically signed By Felipe Dawkins MD Dictated Date: 12/22/2022 7:26:14 PM Prelim Date: 12/22/2022 7:29:33 PM Sign Date: 12/22/2022 7:29:33 PM Ordering Provider: [facility]) XR HIP RIGHT W/PELVIS 4 VIEW Son 12-22-2022 XR HIP RIGHT W/PELVIS 4 VIEWS ORIGINAL EXAMINATION: ONE XRAY VIEW OF THE PELVIS AND TWO XRAY VIEWS RIGHT HIP 12/22/2022 6:06 pm COMPARISON: None. HISTORY: ORDERING SYSTEM PROVIDED HISTORY: Reason for Exam: Right hip pain status post fall. FINDINGS: Probable comminuted inter trochanteric femur neck fracture. There is a displaced large fracture fragment involving lesser trochanter. Superolateral migration of distal fracture fragments with varus angulation of apex. Surrounding soft tissue swelling. No radiopaque foreign body. The pelvic ring is intact. Sacrum and sacral arcs are unremarkable. Varying degree of degenerative changes in the spine, sacroiliac and hip joints. Large fecal load in distal colon and rectum. Vascular calcifications. IMPRESSION: Comminuted inter trochanteric femur neck fracture with superolateral migration and varus angulation. I have personally reviewed the images of this examination and agree with the resident's findings and interpretation. Interpreted by: Felipe Dawkins MD Preliminary Report By: Giacomo May Electronically signed By Felipe Dawkins MD Dictated Date: 12/22/2022 6:35:27 PM Prelim Date: 12/22/2022 6:44:47 PM Sign Date: 12/22/2022 7:02:52 PM Ordering Provider: [facility] ([place]) XR KNEE 1 OR 2 VIEWS RIGHTon 12-22-2022 XR KNEE 1 OR 2 VIEWS RIGHT ORIGINAL EXAMINATION: TWO XRAY VIEWS OF THE RIGHT KNEE 12/22/2022 6:07 pm COMPARISON: None. HISTORY: ORDERING SYSTEM PROVIDED HISTORY: Reason for Exam: pain FINDINGS: There is no acute fracture. The bones are in anatomic alignment. There are severe tricompartmental degenerative changes. There is no significant joint effusion. Vascular calcifications are noted. There is no radiopaque foreign body. IMPRESSION: No acute osseous abnormality. Severe degenerative changes. Interpreted by: Felipe Dawkins MD Preliminary Report By: Felipe Dawkins MD Electronically signed By Felipe Dawkins MD Dictated Date: 12/22/2022 6:44:04 PM Prelim Date: 12/22/2022 6:45:26 PM Sign Date: 12/22/2022 6:45:26 PM Ordering Provider: ISAÍAS VANCE [facility] ([place]) Absolute lymphocyte countOrd ered By: Dr. Reagan on 11-01-2022 Lymphocytes Auto (Unsp spec) [#/Vol] 1.28 10*3/uL 0.83-4.51 [facility] Basophil percentageOrdered B y: Dr. Reagan on 11-01-2022 Basophil percentage 72 mg/dL 74-106 [facility] Basophil percentage 8.1 g/dL 6.4-8.2 [facility] Basophil percentage 0.40 mg/dL 0.20-1.00 [facility] Basophil percentage 137 mmol/L 136-145 [facility] Basophil percentage 4.1 mmol/L 3.5-5.1 [facility] Basophil percentage 105 mmol/L 98-107 [facility] Basophils (Bld) [#/Vol] 9.6 10*3/uL 4.4-11.0 [facility] Basophils (Bld) [#/Vol] 7.4 10*3/uL 2.0-7.7 [facility] Basophils/100 WBC (Bld) 77.1 % 47-70 [facility] Basophils/100 WBC (Bld) 3.2 % 0-5 [facility] Basophils/100 WBC (Bld) 0.5 % 0-1 [facility] Blood erythrocytes count (nu mber/volume)Ordered By: Dr. Reagan on 11-01-2022 RBC (Bld) [#/Vol] 4.58 10*6/uL 4.2-5.4 [facility] Blood hemoglobin measurement (mass/volume)Ordered By: Dr. Reagan on 11-01-2022 Hemoglobin (Bld) [Mass/Vol] 12.5 g/dL 12.0-15.0 [facility] Blood lymphocytes/100 leukoc ytesOrdered By: Dr. Reagan on 11-01-2022 Lymphocytes/100 WBC (Bld) 13.3 % 19-41 [facility] Blood monocytes/100 leukocyt esOrdered By: Dr. Reagan on 11-01-2022 Monocytes/100 WBC (Bld) 5.5 % 0-10 [facility] Blood platelet mean volumeOr dered By: Dr. Reagan on 11-01-2022 Platelet mean volume (Bld) [Entitic vol] 10.1 fL 6.2-12.0 [facility] Determination of erythrocyte mean corpuscular volume (MCV)Ordered By: Dr. Reagan on 11-01-2022 MCV (RBC) [Entitic vol] 88.2 fL 81-99 [facility] Hematocrit Auto (Bld) [Volum e fraction]Ordered By: Dr. Reagan on 11-01-2022 Hematocrit (Bld) [Volume fraction] 40.4 % 37-47 [facility] MCHC Auto (RBC) [Mass/Vol]Or dered By: Dr. Reagan on 11-01-2022 MCHC (RBC) [Mass/Vol] 30.9 g/dL 32-36 [facility] No Panel InformationOrdered By: Dr. Reagan on 11-01-2022 27.3 pg 27.0-32.0 [facility] 15.9 % 11.6-14.6 [facility] 50.1 fl 35.1-43.9 [facility] 0.400 % 0.0-0.9 [facility] 0 % 0-5 [facility] 36 mL/min >60 [facility] 44 mL/min >60 [facility] 21.3 RATIO 10-20 [facility] 4.6 g/dL 2.2-4.2 [facility] 76 U/L 45-117 [facility] 28 U/L 13-56 [facility] 24.0 mmol/L 21.0-32.0 [facility] Platelets bldOrdered By: Dr. Reagan on 11-01-2022 Platelets (Bld) [#/Vol] 309 10*3/uL 150-450 [facility] Serum or plasma albumin keyona urement (mass/volume)Ordered By: Dr. Reagan on 11-01-2022 Albumin [Mass/Vol] 3.5 g/dL 3.2-5.0 [facility] Serum or plasma albumin/glob ulin mass ratioOrdered By: Dr. Reagan on 11-01-2022 Albumin/Globulin [Mass ratio] 0.8 {ratio} 0.9-2.4 [facility] Serum or plasma calcium keyona urement (mass/volume)Ordered By: Dr. Reagan on 11-01-2022 Calcium [Mass/Vol] 9.9 mg/dL 8.5-10.1 [facility] Serum or plasma creatinine m easurement (mass/volume)Ordered By: Dr. Reagan on 11-01-2022 Creatinine [Mass/Vol] 1.50 mg/dL 0.55-1.02 [facility] Serum or plasma urea nitroge n measurement (mass/volume)Ordered By: Dr. Reagan on 11-01-2022 Urea nitrogen [Mass/Vol] 32 mg/dL 7-18 [facility] Thin prep Papanicolaou smear with manual screeningOrdered By: Dr. Reagan on 11-01-2022 Thin prep Papanicolaou smear with manual screening 22 U/L 15-37 [facility] Thin prep Papanicolaou smear with manual screening 8 5-15 [facility] Whole blood hemoglobin A1c/t otal hemoglobin ratio (mass fraction)Ordered By: Dr. Reagan on 11-01-2022 HbA1c (Bld) [Mass fraction] 6.5 % 3.8-5.6 [facility] Anaerobic cultureOrdered By: Dr. Waddell on 10-29-2022 Bacteria identified Anaer cx Nom (Unsp spec) No anaerobic bacteria isolated. [facility] Bacteria identified Cx Nom ( Wound)Ordered By: Dr. Waddell on 10-28-2022 Routine wound culture Meth. resistant Staph. aureus [facility] Gram stain for investigation of transfusion reactionOrdered By: Dr. Waddell on 10-27-2022 Microscopic observation Gram stain Nom (Unsp spec) [facility] Anaerobic cultureOrdered By: Mango Waddell on 10-26-2022 Bacteria identified Anaer cx Nom (Unsp spec) No anaerobic bacteria isolated. [facility] Bacteria identified Cx Nom ( Wound)Ordered By: Mango Waddell on 10-26-2022 Routine wound culture Meth. resistant Staph. aureus [facility] Gram stain for investigation of transfusion reactionOrdered By: Mango Waddell on 10-26-2022 Microscopic observation Gram stain Nom (Unsp spec) [facility] No Panel InformationOrdered By: Dr. Reagan on 10-21-2022 1.5 [facility] Whole blood prothrombin time Ordered By: Dr. Reagan on 10-21-2022 PT Coag (Bld) [Time] 16.3 s 11.7-14.9 [facility] Absolute lymphocyte countOrd ered By: Dr. Lopez on 09-15-2022 Lymphocytes Auto (Unsp spec) [#/Vol] 2.23 10*3/uL 0.83-4.51 [facility] Basophil percentageOrdered B y: Dr. Lopez on 09-15-2022 Basophil percentage 123 mg/dL 74-106 [facility] Basophil percentage 141 mmol/L 136-145 [facility] Basophil percentage 3.9 mmol/L 3.5-5.1 [facility] Basophil percentage 110 mmol/L 98-107 [facility] Basophils (Bld) [#/Vol] 11.1 10*3/uL 4.4-11.0 [facility] Basophils (Bld) [#/Vol] 7.5 10*3/uL 2.0-7.7 [facility] Basophils/100 WBC (Bld) 67.8 % 47-70 [facility] Basophils/100 WBC (Bld) 5.0 % 0-5 [facility] Basophils/100 WBC (Bld) 0.4 % 0-1 [facility] Blood erythrocytes count (nu mber/volume)Ordered By: Dr. Lopez on 09-15-2022 RBC (Bld) [#/Vol] 4.15 10*6/uL 4.2-5.4 [facility] Blood hemoglobin measurement (mass/volume)Ordered By: Dr. Lopez on 09-15-2022 Hemoglobin (Bld) [Mass/Vol] 11.2 g/dL 12.0-15.0 [facility] Blood lymphocytes/100 leukoc ytesOrdered By: Dr. Lopez on 09-15-2022 Lymphocytes/100 WBC (Bld) 20.2 % 19-41 [facility] Blood monocytes/100 leukocyt esOrdered By: Dr. Lopez on 09-15-2022 Monocytes/100 WBC (Bld) 6.1 % 0-10 [facility] Blood platelet mean volumeOr dered By: Dr. Lopez on 09-15-2022 Platelet mean volume (Bld) [Entitic vol] 10.9 fL 6.2-12.0 [facility] Determination of erythrocyte mean corpuscular volume (MCV)Ordered By: Dr. Lopez on 09-15-2022 MCV (RBC) [Entitic vol] 88.0 fL 81-99 [facility] Glucose Glucometer (BldC) [M ass/Vol]Ordered By: Dr. Lopez on 09-15-2022 Glucose [Mass/Vol] 267 mg/dL 74-106 [facility] Hematocrit Auto (Bld) [Volum e fraction]Ordered By: Dr. Lopez on 09-15-2022 Hematocrit (Bld) [Volume fraction] 36.5 % 37-47 [facility] MCHC Auto (RBC) [Mass/Vol]Or dered By: Dr. Lopez on 09-15-2022 MCHC (RBC) [Mass/Vol] 30.7 g/dL 32-36 [facility] No Panel InformationOrdered By: Dr. Lopez on 09-15-2022 27.0 pg 27.0-32.0 [facility] 15.3 % 11.6-14.6 [facility] 49.3 fl 35.1-43.9 [facility] 0.500 % 0.0-0.9 [facility] 0 % 0-5 [facility] 38 mL/min >60 [facility] 46 mL/min >60 [facility] 27.24 ml/min [facility] 31.0 RATIO 10-20 [facility] 22.0 mmol/L 21.0-32.0 [facility] No Panel InformationOrdered By: Dr. Frances on 09-15-2022 No growth in 5 days. [facility] Platelets bldOrdered By: Dr. Lopez on 09-15-2022 Platelets (Bld) [#/Vol] 257 10*3/uL 150-450 [facility] Serum or plasma calcium keyona urement (mass/volume)Ordered By: Dr. Lopez on 09-15-2022 Calcium [Mass/Vol] 9.2 mg/dL 8.5-10.1 [facility] Serum or plasma creatinine m easurement (mass/volume)Ordered By: Dr. Lopez on 09-15-2022 Creatinine [Mass/Vol] 1.45 mg/dL 0.55-1.02 [facility] Serum or plasma urea nitroge n measurement (mass/volume)Ordered By: Dr. Lopez on 09-15-2022 Urea nitrogen [Mass/Vol] 45 mg/dL 7-18 [facility] Thin prep Papanicolaou smear with manual screeningOrdered By: Dr. Lopez on 09-15-2022 Thin prep Papanicolaou smear with manual screening 9 5-15 [facility] INR in Blood by Coagulation assayOrdered By: Dr. Jasmine on 09-13-2022 INR Coag (Bld) [Relative time] 2.1 {INR} [facility] No Panel InformationOrdered By: Dr. Jasmine on 09-13-2022 23.9 SECONDS 11.7-14.9 [facility] Basophil percentageOrdered B y: Dr. Jasmine on 09-12-2022 Basophil percentage 144 mg/dL 74-106 [facility] Basophil percentage 139 mmol/L 136-145 [facility] Basophil percentage 3.9 mmol/L 3.5-5.1 [facility] Basophil percentage 105 mmol/L 98-107 [facility] Glucose Glucometer (BldC) [M ass/Vol]Ordered By: Dr. Jasmine on 09-12-2022 Glucose [Mass/Vol] 261 mg/dL 74-106 [facility] No Panel InformationOrdered By: Dr. Jasmine on 09-12-2022 32 mL/min >60 [facility] 38 mL/min >60 [facility] 23.24 ml/min [facility] 31.8 RATIO 10-20 [facility] 26.0 mmol/L 21.0-32.0 [facility] Serum or plasma calcium keyona urement (mass/volume)Ordered By: Dr. Jasmine on 09-12-2022 Calcium [Mass/Vol] 9.7 mg/dL 8.5-10.1 [facility] Serum or plasma creatinine m easurement (mass/volume)Ordered By: Dr. Jasmine on 09-12-2022 Creatinine [Mass/Vol] 1.70 mg/dL 0.55-1.02 [facility] Serum or plasma urea nitroge n measurement (mass/volume)Ordered By: Dr. Jasmine on 09-12-2022 Urea nitrogen [Mass/Vol] 54 mg/dL 7-18 [facility] Thin prep Papanicolaou smear with manual screeningOrdered By: Dr. Jasmine on 09-12-2022 Thin prep Papanicolaou smear with manual screening 8 5-15 [facility] Basophil percentageOrdered B y: Dr. Jasmine on 09-11-2022 Basophil percentage 147 mg/dL 74-106 [facility] Basophil percentage 137 mmol/L 136-145 [facility] Basophil percentage 3.3 mmol/L 3.5-5.1 [facility] Basophil percentage 106 mmol/L 98-107 [facility] Glucose Glucometer (BldC) [M ass/Vol]Ordered By: Dr. Jasmine on 09-11-2022 Glucose [Mass/Vol] 274 mg/dL 74-106 [facility] INR in Blood by Coagulation assayOrdered By: Dr. Jasmine on 09-11-2022 INR Coag (Bld) [Relative time] 3.0 {INR} [facility] No Panel InformationOrdered By: Dr. Jasmine on 09-11-2022 31.5 SECONDS 11.7-14.9 [facility] 35 mL/min >60 [facility] 42 mL/min >60 [facility] 25.32 ml/min [facility] 30.8 RATIO 10-20 [facility] 26.0 mmol/L 21.0-32.0 [facility] Serum or plasma calcium keyona urement (mass/volume)Ordered By: Dr. Jasmine on 09-11-2022 Calcium [Mass/Vol] 9.7 mg/dL 8.5-10.1 [facility] Serum or plasma creatinine m easurement (mass/volume)Ordered By: Dr. Jasmine on 09-11-2022 Creatinine [Mass/Vol] 1.56 mg/dL 0.55-1.02 [facility] Serum or plasma urea nitroge n measurement (mass/volume)Ordered By: Dr. Jasmine on 09-11-2022 Urea nitrogen [Mass/Vol] 48 mg/dL 7-18 [facility] Thin prep Papanicolaou smear with manual screeningOrdered By: Dr. Jasmine on 09-11-2022 Thin prep Papanicolaou smear with manual screening 5 5-15 [facility] Absolute lymphocyte countOrd ered By: Dr. Cho on 09-10-2022 Lymphocytes Auto (Unsp spec) [#/Vol] 0.32 10*3/uL 0.83-4.51 [facility] Bacteria identified Cx Nom ( U)Ordered By: Dr. Manzano on 09-10-2022 Culture, urine Proteus mirabilis [facility] Bacteria identified Cx Nom ( U)Ordered By: Dr. Frances on 09-10-2022 Culture, urine Mixed Gram Pos & Gram Neg Org [facility] Basophil percentageOrdered B y: Dr. Cho on 09-10-2022 Basophil percentage 6.6 g/dL 6.4-8.2 [facility] Basophil percentage 3.4 mg/dL 2.5-4.9 [facility] Basophil percentage 0.40 mg/dL 0.20-1.00 [facility] Basophils (Bld) [#/Vol] 8.5 10*3/uL 4.4-11.0 [facility] Basophils (Bld) [#/Vol] 8.1 10*3/uL 2.0-7.7 [facility] Basophils/100 WBC (Bld) 94.9 % 47-70 [facility] Basophils/100 WBC (Bld) 0.0 % 0-5 [facility] Basophils/100 WBC (Bld) 0.1 % 0-1 [facility] Blood erythrocytes count (nu mber/volume)Ordered By: Dr. Cho on 09-10-2022 RBC (Bld) [#/Vol] 3.75 10*6/uL 4.2-5.4 [facility] Blood hemoglobin measurement (mass/volume)Ordered By: Dr. Cho on 09-10-2022 Hemoglobin (Bld) [Mass/Vol] 10.3 g/dL 12.0-15.0 [facility] Blood lymphocytes/100 leukoc ytesOrdered By: Dr. Cho on 09-10-2022 Lymphocytes/100 WBC (Bld) 3.8 % 19-41 [facility] Blood manual differential co mment interpretation (narrative result)Ordered By: Dr. Cho on 09-10-2022 Manual differential comment Jovi (Bld) [Interp] SCANNED [facility] Blood monocytes/100 leukocyt esOrdered By: Dr. Cho on 09-10-2022 Monocytes/100 WBC (Bld) 0.7 % 0-10 [facility] Blood platelet mean volumeOr dered By: Dr. Cho on 09-10-2022 Platelet mean volume (Bld) [Entitic vol] 10.4 fL 6.2-12.0 [facility] [facility] Determination of erythrocyte mean corpuscular volume (MCV)Ordered By: Dr. Cho on 09-10-2022 MCV (RBC) [Entitic vol] 86.9 fL 81-99 [facility] Hematocrit Auto (Bld) [Volum e fraction]Ordered By: Dr. Cho on 09-10-2022 Hematocrit (Bld) [Volume fraction] 32.6 % 37-47 [facility] Laboratory - Microbiology an d Antimicrobial susceptibilityOrdered By: Nadja Jasmine on 09-10-2022 Respiratory pathogens DNA and RNA 12b panel ADE+probe (Unsp spec) [facility] - Microbiology an d Antimicrobial susceptibilityOrdered By: Dr. Jasmine on 09-10-2022 Respiratory pathogens DNA and RNA 12b panel ADE+probe (Unsp spec) [facility] MCHC Auto (RBC) [Mass/Vol]Or dered By: Dr. Cho on 09-10-2022 MCHC (RBC) [Mass/Vol] 31.6 g/dL 32-36 [facility] No Panel InformationOrdered By: Dr. Cho on 09-10-2022 27.5 pg 27.0-32.0 [facility] 15.5 % 11.6-14.6 [facility] 49.1 fl 35.1-43.9 [facility] 0.500 % 0.0-0.9 [facility] 0 % 0-5 [facility] 3.7 g/dL 2.2-4.2 [facility] 63 U/L 45-117 [facility] 31 U/L 13-56 [facility] 2.2 mg/dL 1.6-2.6 [facility] Platelets bldOrdered By: Dr. Cho on 09-10-2022 Platelets (Bld) [#/Vol] 237 10*3/uL 150-450 [facility] Serum or plasma albumin keyona urement (mass/volume)Ordered By: Dr. Cho on 09-10-2022 Albumin [Mass/Vol] 2.9 g/dL 3.2-5.0 [facility] Serum or plasma albumin/glob ulin mass ratioOrdered By: Dr. Cho on 09-10-2022 Albumin/Globulin [Mass ratio] 0.8 {ratio} 0.9-2.4 [facility] Thin prep Papanicolaou smear with manual screeningOrdered By: Dr. Cho on 09-10-2022 Thin prep Papanicolaou smear with manual screening 15 U/L 15-37 [facility] Absolute lymphocyte countOrd ered By: ED PROVIDER on 09-09-2022 Lymphocytes Auto (Unsp spec) [#/Vol] 0.74 10*3/uL 0.83-4.51 [facility] Bacteria identified Cx Nom ( U)Ordered By: Krishna Frances on 09-09-2022 Culture, urine Mixed Gram Pos & Gram Neg Org [facility] Basophil percentageOrdered B y: Dr. Frances on 09-09-2022 Basophil percentage 1.2 mmol/L 0.4-2.0 [facility] Basophil percentage 0 SEEN /hpf 0-5 [facility] Basophil percentage 7.7 g/dL 6.4-8.2 [facility] Basophil percentage 0.40 mg/dL 0.20-1.00 [facility] Basophil percentage 2.7 mmol/L 0.4-2.0 [facility] Basophil percentageOrdered B y: ED PROVIDER on 09-09-2022 Basophil percentage 226 mg/dL 74-106 [facility] Basophil percentage 136 mmol/L 136-145 [facility] Basophil percentage 5.0 mmol/L 3.5-5.1 [facility] Basophil percentage 108 mmol/L 98-107 [facility] Basophils (Bld) [#/Vol] 12.6 10*3/uL 4.4-11.0 [facility] Basophils (Bld) [#/Vol] 11.4 10*3/uL 2.0-7.7 [facility] Basophils/100 WBC (Bld) 90.4 % 47-70 [facility] Basophils/100 WBC (Bld) 0.6 % 0-5 [facility] Basophils/100 WBC (Bld) 0.4 % 0-1 [facility] Bilirubin Test strip Ql (U)O rdered By: Dr. Frances on 09-09-2022 Bilirubin Ql (U) Negative Negative [facility] Blood erythrocytes count (nu mber/volume)Ordered By: ED PROVIDER on 09-09-2022 RBC (Bld) [#/Vol] 4.34 10*6/uL 4.2-5.4 [facility] Blood hemoglobin measurement (mass/volume)Ordered By: ED PROVIDER on 09-09-2022 Hemoglobin (Bld) [Mass/Vol] 11.8 g/dL 12.0-15.0 [facility] Blood lymphocytes/100 leukoc ytesOrdered By: ED PROVIDER on 09-09-2022 Lymphocytes/100 WBC (Bld) 5.9 % 19-41 [facility] Blood monocytes/100 leukocyt esOrdered By: ED PROVIDER on 09-09-2022 Monocytes/100 WBC (Bld) 2.2 % 0-10 [facility] Blood platelet mean volumeOr dered By: ED PROVIDER on 09-09-2022 Platelet mean volume (Bld) [Entitic vol] 10.4 fL 6.2-12.0 [facility] COVID-19 virus antigen assay Ordered By: Dr. Frances on 09-09-2022 SARS-CoV-2 (COVID-19) Ag IA.rapid Ql (Resp) Not detected Not Detect [facility] COVID-19 virus antigen assay Ordered By: ED PROVIDER on 09-09-2022 SARS-CoV-2 (COVID-19) Ag IA.rapid Ql (Resp) [facility] Determination of erythrocyte mean corpuscular volume (MCV)Ordered By: ED PROVIDER on 09-09-2022 MCV (RBC) [Entitic vol] 88.2 fL 81-99 [facility] Direct bilirubinOrdered By: Dr. Frances on 09-09-2022 Bilirubin.direct [Mass/Vol] 0.12 mg/dL 0.00-0.30 [facility] Hematocrit Auto (Bld) [Volum e fraction]Ordered By: ED PROVIDER on 09-09-2022 Hematocrit (Bld) [Volume fraction] 38.3 % 37-47 [facility] INR in Blood by Coagulation assayOrdered By: Dr. Frances on 09-09-2022 INR Coag (Bld) [Relative time] 1.7 {INR} [facility] Ketones Test strip Ql (U)Ord ered By: Dr. Frances on 09-09-2022 Ketones Ql (U) Negative Negative [facility] MCHC Auto (RBC) [Mass/Vol]Or dered By: ED PROVIDER on 09-09-2022 MCHC (RBC) [Mass/Vol] 30.8 g/dL 32-36 [facility] Mucus LM Ql (Urine sed)Order ed By: Dr. Frances on 09-09-2022 Mucus Ql (Urine sed) 0 SEEN /hpf [facility] Nitrite Test strip Ql (U)Ord ered By: Dr. Frances on 09-09-2022 Nitrite Ql (U) Negative Negative [facility] No Panel InformationOrdered By: Krishna Frances on 09-09-2022 No growth in 5 days. [facility] No Panel InformationOrdered By: Dr. Frances on 09-09-2022 20.0 SECONDS 11.7-14.9 [facility] 4.3 g/dL 2.2-4.2 [facility] 83 U/L 45-117 [facility] 37 U/L 13-56 [facility] 272.2 pg/mL 0-100 [facility] No Panel InformationOrdered By: ED PROVIDER on 09-09-2022 27.2 pg 27.0-32.0 [facility] 15.4 % 11.6-14.6 [facility] 50.3 fl 35.1-43.9 [facility] 0.500 % 0.0-0.9 [facility] 0 % 0-5 [facility] 43 mL/min >60 [facility] 52 mL/min >60 [facility] 30.62 ml/min [facility] 27.9 RATIO 10-20 [facility] 11 pg/mL 3.0-54.0 [facility] 24.0 mmol/L 21.0-32.0 [facility] Platelets bldOrdered By: ED PROVIDER on 09-09-2022 Platelets (Bld) [#/Vol] 275 10*3/uL 150-450 [facility] Protein Test strip Ql (U)Ord ered By: Dr. Frances on 09-09-2022 Protein Ql (U) 30 mg/dl Negative [facility] Serum or plasma albumin keyona urement (mass/volume)Ordered By: Dr. Frances on 09-09-2022 Albumin [Mass/Vol] 3.4 g/dL 3.2-5.0 [facility] Serum or plasma calcium keyona urement (mass/volume)Ordered By: ED PROVIDER on 09-09-2022 Calcium [Mass/Vol] 9.9 mg/dL 8.5-10.1 [facility] Serum or plasma creatinine m easurement (mass/volume)Ordered By: ED PROVIDER on 09-09-2022 Creatinine [Mass/Vol] 1.29 mg/dL 0.55-1.02 [facility] Serum or plasma urea nitroge n measurement (mass/volume)Ordered By: ED PROVIDER on 09-09-2022 Urea nitrogen [Mass/Vol] 36 mg/dL 7-18 [facility] Squamous epithelial cells de tection in urine sediment by light microscopyOrdered By: Dr. Frances on 09-09-2022 Epithelial cells.squamous LM Ql (Urine sed) 0-5 SEEN /hpf 5-10 [facility] Thin prep Papanicolaou smear with manual screeningOrdered By: Dr. Frances on 09-09-2022 Thin prep Papanicolaou smear with manual screening 24 U/L 15-37 [facility] Thin prep Papanicolaou smear with manual screeningOrdered By: ED PROVIDER on 09-09-2022 Thin prep Papanicolaou smear with manual screening 4 5-15 [facility] Urine blood detectionOrdered By: Dr. Frances on 09-09-2022 RBC Ql (U) Negative Negative [facility] RBC Ql (U) 0 SEEN /hpf 0-5 [facility] Urine clarityOrdered By: Dr. Frances on 09-09-2022 Clarity (U) Clear Clear [facility] Urine color determinationOrd ered By: Dr. Frances on 09-09-2022 Color (U) Yellow Yellow [facility] Urine glucose detectionOrder ed By: Dr. Frances on 09-09-2022 Glucose Ql (U) Normal mg/dl Normal [facility] Urine leukocyte esterase det ection by dipstickOrdered By: Dr. Frances on 09-09-2022 Leukocyte esterase Test strip Ql (U) 25 /ul Negative [facility] Urine pHOrdered By: Dr. Sher cazares on 09-09-2022 pH (U) 6.0 [pH] 5.0 - 8.0 [facility] Urine sediment bacteria coun t by microscopy (number/high power field)Ordered By: Dr. Frances on 09-09-2022 Bacteria LM.HPF (Urine sed) [#/Area] 0 /[HPF] None Seen [facility] Urine specific gravity measu rementOrdered By: Dr. Frances on 09-09-2022 Specific gravity (U) [Rel density] 1.015 1.002-1.030 [facility] Urobilinogen Auto test strip Ql (U)Ordered By: Dr. Frances on 09-09-2022 Urobilinogen Ql (U) Normal mg/dl Normal [facility] Absolute lymphocyte countOrd ered By: Dr. Manzano on 09-06-2022 Lymphocytes Auto (Unsp spec) [#/Vol] 1.73 10*3/uL 0.83-4.51 [facility] Amorphous sediment detection in urine sediment by light microscopyOrdered By: Dr. Manzano on 09-06-2022 Amorphous sediment LM Ql (Urine sed) 1+ PHOS [facility] Bacteria identified Cx Nom ( U)Ordered By: Tj Manzano on 09-06-2022 Culture, urine Proteus mirabilis [facility] Basophil percentageOrdered B y: Dr. Manzano on 09-06-2022 Basophil percentage 10-25 SEEN /hpf 0-5 [facility] Basophil percentage 164 mg/dL 74-106 [facility] Basophil percentage 136 mmol/L 136-145 [facility] Basophil percentage 5.2 mmol/L 3.5-5.1 [facility] Basophil percentage 107 mmol/L 98-107 [facility] Basophils (Bld) [#/Vol] 8.8 10*3/uL 4.4-11.0 [facility] Basophils (Bld) [#/Vol] 6.2 10*3/uL 2.0-7.7 [facility] Basophils/100 WBC (Bld) 70.1 % 47-70 [facility] Basophils/100 WBC (Bld) 3.6 % 0-5 [facility] Basophils/100 WBC (Bld) 0.7 % 0-1 [facility] Bilirubin Test strip Ql (U)O rdered By: Dr. Manzano on 09-06-2022 Bilirubin Ql (U) Negative Negative [facility] Blood erythrocytes count (nu mber/volume)Ordered By: Dr. Manzano on 09-06-2022 RBC (Bld) [#/Vol] 4.11 10*6/uL 4.2-5.4 [facility] Blood hemoglobin measurement (mass/volume)Ordered By: Dr. Manzano on 09-06-2022 Hemoglobin (Bld) [Mass/Vol] 11.5 g/dL 12.0-15.0 [facility] Blood lymphocytes/100 leukoc ytesOrdered By: Dr. Manzano on 09-06-2022 Lymphocytes/100 WBC (Bld) 19.7 % 19-41 [facility] Blood monocytes/100 leukocyt esOrdered By: Dr. Manzano on 09-06-2022 Monocytes/100 WBC (Bld) 5.7 % 0-10 [facility] Blood platelet mean volumeOr dered By: Dr. Manzano on 09-06-2022 Platelet mean volume (Bld) [Entitic vol] 10.9 fL 6.2-12.0 [facility] Determination of erythrocyte mean corpuscular volume (MCV)Ordered By: Dr. Manzano on 09-06-2022 MCV (RBC) [Entitic vol] 88.3 fL 81-99 [facility] Hematocrit Auto (Bld) [Volum e fraction]Ordered By: Dr. Manzano on 09-06-2022 Hematocrit (Bld) [Volume fraction] 36.3 % 37-47 [facility] Ketones Test strip Ql (U)Ord ered By: Dr. Manzano on 09-06-2022 Ketones Ql (U) Negative Negative [facility] MCHC Auto (RBC) [Mass/Vol]Or dered By: Dr. Manzano on 09-06-2022 MCHC (RBC) [Mass/Vol] 31.7 g/dL 32-36 [facility] Magnesium ammonium phosphate crystal detectionOrdered By: Dr. Manzano on 09-06-2022 Triple phosphate crystals LM Ql (Urine sed) 2+ /hpf [facility] Mucus LM Ql (Urine sed)Order ed By: Dr. Manzano on 09-06-2022 Mucus Ql (Urine sed) 0 SEEN /hpf [facility] Nitrite Test strip Ql (U)Ord ered By: Dr. Manzano on 09-06-2022 Nitrite Ql (U) Positive Negative [facility] No Panel InformationOrdered By: Dr. Manzano on 09-06-2022 28.0 pg 27.0-32.0 [facility] 15.6 % 11.6-14.6 [facility] 50.9 fl 35.1-43.9 [facility] 0.200 % 0.0-0.9 [facility] 0 % 0-5 [facility] 39 mL/min >60 [facility] 47 mL/min >60 [facility] 27.62 ml/min [facility] 32.9 RATIO 10-20 [facility] 24.0 mmol/L 21.0-32.0 [facility] Platelets bldOrdered By: Dr. Manzano on 09-06-2022 Platelets (Bld) [#/Vol] 306 10*3/uL 150-450 [facility] Protein Test strip Ql (U)Ord ered By: Dr. Manzano on 09-06-2022 Protein Ql (U) 30 mg/dl Negative [facility] Serum or plasma calcium keyona urement (mass/volume)Ordered By: Dr. Manzano on 09-06-2022 Calcium [Mass/Vol] 9.6 mg/dL 8.5-10.1 [facility] Serum or plasma creatinine m easurement (mass/volume)Ordered By: Dr. Manzano on 09-06-2022 Creatinine [Mass/Vol] 1.43 mg/dL 0.55-1.02 [facility] Serum or plasma urea nitroge n measurement (mass/volume)Ordered By: Dr. Manzano on 09-06-2022 Urea nitrogen [Mass/Vol] 47 mg/dL 7-18 [facility] Squamous epithelial cells de tection in urine sediment by light microscopyOrdered By: Dr. Manzano on 09-06-2022 Epithelial cells.squamous LM Ql (Urine sed) 0-5 SEEN /hpf 5-10 [facility] Thin prep Papanicolaou smear with manual screeningOrdered By: Dr. Manzano on 09-06-2022 Thin prep Papanicolaou smear with manual screening 5 5-15 [facility] Urine blood detectionOrdered By: Dr. Manzano on 09-06-2022 RBC Ql (U) 10 /ul Negative [facility] RBC Ql (U) 0-5 SEEN /hpf 0-5 [facility] Urine clarityOrdered By: Dr. Manzano on 09-06-2022 Clarity (U) Sl. Cloudy Clear [facility] Urine color determinationOrd ered By: Dr. Manzano on 09-06-2022 Color (U) Yellow Yellow [facility] Urine glucose detectionOrder ed By: Dr. Manzano on 09-06-2022 Glucose Ql (U) Normal mg/dl Normal [facility] Urine leukocyte esterase det ection by dipstickOrdered By: Dr. Manzano on 09-06-2022 Leukocyte esterase Test strip Ql (U) 500 /ul Negative [facility] Urine pHOrdered By: Dr. Binta gonzalez on 09-06-2022 pH (U) 8.0 [pH] 5.0 - 8.0 [facility] Urine sediment bacteria coun t by microscopy (number/high power field)Ordered By: Dr. Manzano on 09-06-2022 Bacteria LM.HPF (Urine sed) [#/Area] 0 /[HPF] None Seen [facility] Urine specific gravity measu rementOrdered By: Dr. Manzano on 09-06-2022 Specific gravity (U) [Rel density] 1.010 1.002-1.030 [facility] Urobilinogen Auto test strip Ql (U)Ordered By: Dr. Manzano on 09-06-2022 Urobilinogen Ql (U) Normal mg/dl Normal [facility] Absolute lymphocyte countOrd ered By: Dr. Reagan on 09-01-2022 Lymphocytes Auto (Unsp spec) [#/Vol] 1.40 10*3/uL 0.83-4.51 [facility] Basophil percentageOrdered B y: Dr. Reagan on 09-01-2022 Basophil percentage 181 mg/dL 74-106 [facility] Basophil percentage 8.0 g/dL 6.4-8.2 [facility] Basophil percentage 0.40 mg/dL 0.20-1.00 [facility] Basophil percentage 136 mmol/L 136-145 [facility] Basophil percentage 4.9 mmol/L 3.5-5.1 [facility] Basophil percentage 107 mmol/L 98-107 [facility] Basophils (Bld) [#/Vol] 11.0 10*3/uL 4.4-11.0 [facility] Basophils (Bld) [#/Vol] 8.6 10*3/uL 2.0-7.7 [facility] Basophils/100 WBC (Bld) 78.7 % 47-70 [facility] Basophils/100 WBC (Bld) 2.8 % 0-5 [facility] Basophils/100 WBC (Bld) 0.5 % 0-1 [facility] Blood erythrocytes count (nu mber/volume)Ordered By: Dr. Reagan on 09-01-2022 RBC (Bld) [#/Vol] 4.65 10*6/uL 4.2-5.4 [facility] Blood hemoglobin measurement (mass/volume)Ordered By: Dr. Reagan on 09-01-2022 Hemoglobin (Bld) [Mass/Vol] 12.6 g/dL 12.0-15.0 [facility] Blood lymphocytes/100 leukoc ytesOrdered By: Dr. Reagan on 09-01-2022 Lymphocytes/100 WBC (Bld) 12.8 % 19-41 [facility] Blood monocytes/100 leukocyt esOrdered By: Dr. Reagan on 09-01-2022 Monocytes/100 WBC (Bld) 4.8 % 0-10 [facility] Blood platelet mean volumeOr dered By: Dr. Reagan on 09-01-2022 Platelet mean volume (Bld) [Entitic vol] 10.3 fL 6.2-12.0 [facility] Determination of erythrocyte mean corpuscular volume (MCV)Ordered By: Dr. Reagan on 09-01-2022 MCV (RBC) [Entitic vol] 86.7 fL 81-99 [facility] Hematocrit Auto (Bld) [Volum e fraction]Ordered By: Dr. Reagan on 09-01-2022 Hematocrit (Bld) [Volume fraction] 40.3 % 37-47 [facility] INR in Blood by Coagulation assayOrdered By: Nadja Mckoen on 09-01-2022 INR Coag (Bld) [Relative time] 1.6 {INR} [facility] MCHC Auto (RBC) [Mass/Vol]Or dered By: Dr. Reagan on 09-01-2022 MCHC (RBC) [Mass/Vol] 31.3 g/dL 32-36 [facility] No Panel InformationOrdered By: Nadja Mckeon on 09-01-2022 18.4 SECONDS 11.7-14.9 [facility] No Panel InformationOrdered By: Dr. Reagan on 09-01-2022 27.1 pg 27.0-32.0 [facility] 15.8 % 11.6-14.6 [facility] 50.1 fl 35.1-43.9 [facility] 0.400 % 0.0-0.9 [facility] 0 % 0-5 [facility] 36 mL/min >60 [facility] 44 mL/min >60 [facility] 38.4 RATIO 10-20 [facility] 4.3 g/dL 2.2-4.2 [facility] 82 U/L 45-117 [facility] 37 U/L 13-56 [facility] 22.0 mmol/L 21.0-32.0 [facility] 2.59 uIU/mL 0.358-3.74 [facility] 1.19 ng/dL 0.76-1.46 [facility] No Panel Informationon 09-01 6.1 % 4.2-6.3 [facility] Platelets bldOrdered By: Dr. Reagan on 09-01-2022 Platelets (Bld) [#/Vol] 423 10*3/uL 150-450 [facility] Serum or plasma albumin keyona urement (mass/volume)Ordered By: Dr. Reagan on 09-01-2022 Albumin [Mass/Vol] 3.7 g/dL 3.2-5.0 [facility] Serum or plasma albumin/glob ulin mass ratioOrdered By: Dr. Reagan on 09-01-2022 Albumin/Globulin [Mass ratio] 0.9 {ratio} 0.9-2.4 [facility] Serum or plasma calcium keyona urement (mass/volume)Ordered By: Dr. Reagan on 09-01-2022 Calcium [Mass/Vol] 10.0 mg/dL 8.5-10.1 [facility] Serum or plasma creatinine m easurement (mass/volume)Ordered By: Dr. Reagan on 09-01-2022 Creatinine [Mass/Vol] 1.51 mg/dL 0.55-1.02 [facility] Serum or plasma urea nitroge n measurement (mass/volume)Ordered By: Dr. Reagan on 09-01-2022 Urea nitrogen [Mass/Vol] 58 mg/dL 7-18 [facility] Thin prep Papanicolaou smear with manual screeningOrdered By: Dr. Reagan on 09-01-2022 Thin prep Papanicolaou smear with manual screening 24 U/L 15-37 [facility] Thin prep Papanicolaou smear with manual screening 7 5-15 [facility] Basophil percentageOrdered B y: Dr. Morocho on 08-18-2022 Basophil percentage 126 mg/dL 74-106 [facility] Basophil percentage 141 mmol/L 136-145 [facility] Basophil percentage 5.0 mmol/L 3.5-5.1 [facility] Basophil percentage 112 mmol/L 98-107 [facility] Basophils (Bld) [#/Vol] 10.1 10*3/uL 4.4-11.0 [facility] Blood erythrocytes count (nu mber/volume)Ordered By: Dr. Morocho on 08-18-2022 RBC (Bld) [#/Vol] 3.97 10*6/uL 4.2-5.4 [facility] Blood hemoglobin measurement (mass/volume)Ordered By: Dr. Morocho on 08-18-2022 Hemoglobin (Bld) [Mass/Vol] 10.7 g/dL 12.0-15.0 [facility] Blood platelet mean volumeOr dered By: Dr. Morocho on 08-18-2022 Platelet mean volume (Bld) [Entitic vol] 10.4 fL 6.2-12.0 [facility] Determination of erythrocyte mean corpuscular volume (MCV)Ordered By: Dr. Morocho on 08-18-2022 MCV (RBC) [Entitic vol] 89.7 fL 81-99 [facility] Erythrocyte sedimentation ra teOrdered By: Dr. Morocho on 08-18-2022 ESR (Bld) [Velocity] 57 mm/h 0-30 [facility] Hematocrit Auto (Bld) [Volum e fraction]Ordered By: Dr. Morocho on 08-18-2022 Hematocrit (Bld) [Volume fraction] 35.6 % 37-47 [facility] MCHC Auto (RBC) [Mass/Vol]Or dered By: Dr. Morocho on 08-18-2022 MCHC (RBC) [Mass/Vol] 30.1 g/dL 32-36 [facility] No Panel InformationOrdered By: Dr. Morocho on 08-18-2022 27.0 pg 27.0-32.0 [facility] 15.8 % 11.6-14.6 [facility] 51.8 fl 35.1-43.9 [facility] 46 mL/min >60 [facility] 55 mL/min >60 [facility] 35.8 RATIO 10-20 [facility] 24.0 mmol/L 21.0-32.0 [facility] Platelets bldOrdered By: Dr. Morocho on 08-18-2022 Platelets (Bld) [#/Vol] 332 10*3/uL 150-450 [facility] Serum or plasma calcium keyona urement (mass/volume)Ordered By: Dr. Morocho on 08-18-2022 Calcium [Mass/Vol] 9.2 mg/dL 8.5-10.1 [facility] Serum or plasma creatinine m easurement (mass/volume)Ordered By: Dr. Morocho on 08-18-2022 Creatinine [Mass/Vol] 1.23 mg/dL 0.55-1.02 [facility] Serum or plasma urea nitroge n measurement (mass/volume)Ordered By: Dr. Morocho on 08-18-2022 Urea nitrogen [Mass/Vol] 44 mg/dL 7-18 [facility] Thin prep Papanicolaou smear with manual screeningOrdered By: Dr. Morocho on 08-18-2022 Thin prep Papanicolaou smear with manual screening 5 5-15 [facility] Vancomycin troughOrdered By: Dr. Morocho on 08-18-2022 Vancomycin trough [Mass/Vol] 16.1 ug/mL 5.0-15.0 [facility] Glucose Glucometer (BldC) [M ass/Vol]Ordered By: Dr. Lopez on 08-16-2022 Glucose [Mass/Vol] 228 mg/dL 74-106 [facility] INR in Blood by Coagulation assayOrdered By: Dr. Delvalle on 08-15-2022 INR Coag (Bld) [Relative time] 1.9 {INR} [facility] No Panel InformationOrdered By: Dr. Delvalle on 08-15-2022 21.1 SECONDS 11.7-14.9 [facility] Vancomycin troughOrdered By: Dr. Delvalle on 08-15-2022 Vancomycin trough [Mass/Vol] 22.9 ug/mL 5.0-15.0 [facility] Glucose Glucometer (BldC) [M ass/Vol]Ordered By: Dr. Jacobsen on 08-13-2022 Glucose [Mass/Vol] 153 mg/dL 74-106 [facility] Glucose [Mass/Vol] 178 mg/dL 74-106 [facility] INR in Blood by Coagulation assayOrdered By: Dr. Delvalle on 08-13-2022 INR Coag (Bld) [Relative time] 2.0 {INR} [facility] No Panel InformationOrdered By: Dr. Delvalle on 08-13-2022 22.5 SECONDS 11.7-14.9 [facility] Vancomycin troughOrdered By: Dr. Delvalle on 08-13-2022 Vancomycin trough [Mass/Vol] 20.3 ug/mL 5.0-15.0 [facility] Absolute lymphocyte countOrd ered By: Dr. Delvalle on 08-12-2022 Lymphocytes Auto (Unsp spec) [#/Vol] 1.54 10*3/uL 0.83-4.51 [facility] Basophil percentageOrdered B y: Dr. Delvalle on 08-12-2022 Basophil percentage 160 mg/dL 74-106 [facility] Basophil percentage 141 mmol/L 136-145 [facility] Basophil percentage 3.9 mmol/L 3.5-5.1 [facility] Basophil percentage 114 mmol/L 98-107 [facility] Basophils (Bld) [#/Vol] 4.6 10*3/uL 4.4-11.0 [facility] Basophils (Bld) [#/Vol] 2.2 10*3/uL 2.0-7.7 [facility] Basophils/100 WBC (Bld) 48.4 % 47-70 [facility] Basophils/100 WBC (Bld) 6.7 % 0-5 [facility] Basophils/100 WBC (Bld) 1.1 % 0-1 [facility] Blood erythrocytes count (nu mber/volume)Ordered By: Dr. Delvalle on 08-12-2022 RBC (Bld) [#/Vol] 3.51 10*6/uL 4.2-5.4 [facility] Blood hemoglobin measurement (mass/volume)Ordered By: Dr. Delvalle on 08-12-2022 Hemoglobin (Bld) [Mass/Vol] 9.7 g/dL 12.0-15.0 [facility] Blood lymphocytes/100 leukoc ytesOrdered By: Dr. Delvalle on 08-12-2022 Lymphocytes/100 WBC (Bld) 33.4 % 19-41 [facility] Blood monocytes/100 leukocyt esOrdered By: Dr. Delvalle on 08-12-2022 Monocytes/100 WBC (Bld) 10.0 % 0-10 [facility] Blood platelet mean volumeOr dered By: Dr. Delvalle on 08-12-2022 Platelet mean volume (Bld) [Entitic vol] 9.8 fL 6.2-12.0 [facility] Determination of erythrocyte mean corpuscular volume (MCV)Ordered By: Dr. Delvalle on 08-12-2022 MCV (RBC) [Entitic vol] 88.0 fL 81-99 [facility] Glucose Glucometer (BldC) [M ass/Vol]Ordered By: Dr. Jacobsen on 08-12-2022 Glucose [Mass/Vol] 118 mg/dL 74-106 [facility] Hematocrit Auto (Bld) [Volum e fraction]Ordered By: Dr. Delvalle on 08-12-2022 Hematocrit (Bld) [Volume fraction] 30.9 % 37-47 [facility] INR in Blood by Coagulation assayOrdered By: Dr. Delvalle on 08-12-2022 INR Coag (Bld) [Relative time] 1.8 {INR} [facility] MCHC Auto (RBC) [Mass/Vol]Or dered By: Dr. Delvalle on 08-12-2022 MCHC (RBC) [Mass/Vol] 31.4 g/dL 32-36 [facility] No Panel InformationOrdered By: Dr. Delvalle on 08-12-2022 27.6 pg 27.0-32.0 [facility] 15.9 % 11.6-14.6 [facility] 50.9 fl 35.1-43.9 [facility] 0.400 % 0.0-0.9 [facility] 0 % 0-5 [facility] 20.6 SECONDS 11.7-14.9 [facility] 54 mL/min >60 [facility] 65 mL/min >60 [facility] 36.92 ml/min [facility] 32.7 RATIO 10-20 [facility] 20.0 mmol/L 21.0-32.0 [facility] Platelets bldOrdered By: Dr. Delvalle on 08-12-2022 Platelets (Bld) [#/Vol] 221 10*3/uL 150-450 [facility] Serum or plasma calcium keyona urement (mass/volume)Ordered By: Dr. Delvalle on 08-12-2022 Calcium [Mass/Vol] 8.6 mg/dL 8.5-10.1 [facility] Serum or plasma creatinine m easurement (mass/volume)Ordered By: Dr. Delvalle on 08-12-2022 Creatinine [Mass/Vol] 1.07 mg/dL 0.55-1.02 [facility] Serum or plasma urea nitroge n measurement (mass/volume)Ordered By: Dr. Delvalle on 08-12-2022 Urea nitrogen [Mass/Vol] 35 mg/dL 7-18 [facility] Thin prep Papanicolaou smear with manual screeningOrdered By: Dr. Delvalle on 08-12-2022 Thin prep Papanicolaou smear with manual screening 7 5-15 [facility] Absolute lymphocyte countOrd ered By: Dr. Mota on 08-11-2022 Lymphocytes Auto (Unsp spec) [#/Vol] 0.88 10*3/uL 0.83-4.51 [facility] Basophil percentageOrdered B y: Dr. Mota on 08-11-2022 Basophil percentage 169 mg/dL 74-106 [facility] Basophil percentage 138 mmol/L 136-145 [facility] Basophil percentage 5.1 mmol/L 3.5-5.1 [facility] Basophil percentage 108 mmol/L 98-107 [facility] Basophils (Bld) [#/Vol] 4.3 10*3/uL 4.4-11.0 [facility] Basophils (Bld) [#/Vol] 2.7 10*3/uL 2.0-7.7 [facility] Basophils/100 WBC (Bld) 64.1 % 47-70 [facility] Basophils/100 WBC (Bld) 4.4 % 0-5 [facility] Basophils/100 WBC (Bld) 0.7 % 0-1 [facility] Blood erythrocytes count (nu mber/volume)Ordered By: Dr. Mota on 08-11-2022 RBC (Bld) [#/Vol] 4.00 10*6/uL 4.2-5.4 [facility] Blood hemoglobin measurement (mass/volume)Ordered By: Dr. Mota on 08-11-2022 Hemoglobin (Bld) [Mass/Vol] 11.0 g/dL 12.0-15.0 [facility] Blood lymphocytes/100 leukoc ytesOrdered By: Dr. Mota on 08-11-2022 Lymphocytes/100 WBC (Bld) 20.6 % 19-41 [facility] Blood monocytes/100 leukocyt esOrdered By: Dr. Mota on 08-11-2022 Monocytes/100 WBC (Bld) 10.0 % 0-10 [facility] Blood platelet mean volumeOr dered By: Dr. Mota on 08-11-2022 Platelet mean volume (Bld) [Entitic vol] 9.9 fL 6.2-12.0 [facility] Determination of erythrocyte mean corpuscular volume (MCV)Ordered By: Dr. Mota on 08-11-2022 MCV (RBC) [Entitic vol] 87.5 fL 81-99 [facility] Fungus cultureOrdered By: Dr Ani Wolff on 08-11-2022 Fungus identified Cx Nom (Unsp spec) [facility] Fungus stainOrdered By: Dr. Wolff on 08-11-2022 Fungus identified Fungus stain Nom (Unsp spec) [facility] Hematocrit Auto (Bld) [Volum e fraction]Ordered By: Dr. Mota on 08-11-2022 Hematocrit (Bld) [Volume fraction] 35.0 % 37-47 [facility] INR in Blood by Coagulation assayOrdered By: Dr. Mota on 08-11-2022 INR Coag (Bld) [Relative time] 1.5 {INR} [facility] MCHC Auto (RBC) [Mass/Vol]Or dered By: Dr. Mota on 08-11-2022 MCHC (RBC) [Mass/Vol] 31.4 g/dL 32-36 [facility] No Panel InformationOrdered By: Dr. Delvalle on 08-11-2022 2.1 mg/dL 1.6-2.6 [facility] No Panel InformationOrdered By: Dr. Mota on 08-11-2022 27.5 pg 27.0-32.0 [facility] 15.7 % 11.6-14.6 [facility] 49.7 fl 35.1-43.9 [facility] 0.200 % 0.0-0.9 [facility] 0 % 0-5 [facility] 17.3 SECONDS 11.7-14.9 [facility] 42 mL/min >60 [facility] 51 mL/min >60 [facility] 29.70 ml/min [facility] 33.8 RATIO 10-20 [facility] 10 pg/mL 3.0-54.0 [facility] 24.0 mmol/L 21.0-32.0 [facility] 750.3 pg/mL 0-100 [facility] Platelets bldOrdered By: Dr. Mota on 08-11-2022 Platelets (Bld) [#/Vol] 256 10*3/uL 150-450 [facility] Serum or plasma calcium keyona urement (mass/volume)Ordered By: Dr. Mota on 08-11-2022 Calcium [Mass/Vol] 9.6 mg/dL 8.5-10.1 [facility] Serum or plasma creatinine m easurement (mass/volume)Ordered By: Dr. Mota on 08-11-2022 Creatinine [Mass/Vol] 1.33 mg/dL 0.55-1.02 [facility] Serum or plasma urea nitroge n measurement (mass/volume)Ordered By: Dr. Mota on 08-11-2022 Urea nitrogen [Mass/Vol] 45 mg/dL 7-18 [facility] Thin prep Papanicolaou smear with manual screeningOrdered By: Dr. Mota on 08-11-2022 Thin prep Papanicolaou smear with manual screening 6 5-15 [facility] No Panel InformationOrdered By: Nadja Mckeon on 08-05-2022 1.6 [facility] Whole blood prothrombin time Ordered By: Nadja Mckeon on 08-05-2022 PT Coag (Bld) [Time] 17.6 s 11.7-14.9 [facility] Basophil percentageOrdered B y: Dr. Morocho on 08-04-2022 Basophil percentage 76 mg/dL 74-106 [facility] Basophil percentage 141 mmol/L 136-145 [facility] Basophil percentage 4.3 mmol/L 3.5-5.1 [facility] Basophil percentage 108 mmol/L 98-107 [facility] Basophils (Bld) [#/Vol] 5.0 10*3/uL 4.4-11.0 [facility] Blood erythrocytes count (nu mber/volume)Ordered By: Dr. Morocho on 08-04-2022 RBC (Bld) [#/Vol] 3.66 10*6/uL 4.2-5.4 [facility] Blood hemoglobin measurement (mass/volume)Ordered By: Dr. Morocho on 08-04-2022 Hemoglobin (Bld) [Mass/Vol] 9.9 g/dL 12.0-15.0 [facility] Blood platelet mean volumeOr dered By: Dr. Morocho on 08-04-2022 Platelet mean volume (Bld) [Entitic vol] 10.0 fL 6.2-12.0 [facility] Determination of erythrocyte mean corpuscular volume (MCV)Ordered By: Dr. Morocho on 08-04-2022 MCV (RBC) [Entitic vol] 89.3 fL 81-99 [facility] Erythrocyte sedimentation ra teOrdered By: Dr. Morocho on 08-04-2022 ESR (Bld) [Velocity] 39 mm/h 0-30 [facility] Hematocrit Auto (Bld) [Volum e fraction]Ordered By: Dr. Morocho on 08-04-2022 Hematocrit (Bld) [Volume fraction] 32.7 % 37-47 [facility] MCHC Auto (RBC) [Mass/Vol]Or dered By: Dr. Morocho on 08-04-2022 MCHC (RBC) [Mass/Vol] 30.3 g/dL 32-36 [facility] No Panel InformationOrdered By: Dr. Morocho on 08-04-2022 27.0 pg 27.0-32.0 [facility] 15.5 % 11.6-14.6 [facility] 50.9 fl 35.1-43.9 [facility] 49 mL/min >60 [facility] 59 mL/min >60 [facility] 32.5 RATIO 10-20 [facility] 25.0 mmol/L 21.0-32.0 [facility] Platelets bldOrdered By: Dr. Morocho on 08-04-2022 Platelets (Bld) [#/Vol] 278 10*3/uL 150-450 [facility] Serum or plasma calcium keyona urement (mass/volume)Ordered By: Dr. Morocho on 08-04-2022 Calcium [Mass/Vol] 9.2 mg/dL 8.5-10.1 [facility] Serum or plasma creatinine m easurement (mass/volume)Ordered By: Dr. Morocho on 08-04-2022 Creatinine [Mass/Vol] 1.17 mg/dL 0.55-1.02 [facility] Serum or plasma urea nitroge n measurement (mass/volume)Ordered By: Dr. Morocho on 08-04-2022 Urea nitrogen [Mass/Vol] 38 mg/dL 7-18 [facility] Thin prep Papanicolaou smear with manual screeningOrdered By: Dr. Morocho on 08-04-2022 Thin prep Papanicolaou smear with manual screening 8 5-15 [facility] Vancomycin troughOrdered By: Dr. Morocho on 08-04-2022 Vancomycin trough [Mass/Vol] 16.8 ug/mL 5.0-15.0 [facility] Basophil percentageOrdered B y: Dr. Morocho on 07-28-2022 Basophil percentage 186 mg/dL 74-106 [facility] Basophil percentage 139 mmol/L 136-145 [facility] Basophil percentage 4.2 mmol/L 3.5-5.1 [facility] Basophil percentage 106 mmol/L 98-107 [facility] Basophils (Bld) [#/Vol] 6.7 10*3/uL 4.4-11.0 [facility] Blood erythrocytes count (nu mber/volume)Ordered By: Dr. Morocho on 07-28-2022 RBC (Bld) [#/Vol] 3.52 10*6/uL 4.2-5.4 [facility] Blood hemoglobin measurement (mass/volume)Ordered By: Dr. Morocho on 07-28-2022 Hemoglobin (Bld) [Mass/Vol] 9.5 g/dL 12.0-15.0 [facility] Blood platelet mean volumeOr dered By: Dr. Morocho on 07-28-2022 Platelet mean volume (Bld) [Entitic vol] 10.1 fL 6.2-12.0 [facility] Determination of erythrocyte mean corpuscular volume (MCV)Ordered By: Dr. Morocho on 07-28-2022 MCV (RBC) [Entitic vol] 89.2 fL 81-99 [facility] Erythrocyte sedimentation ra teOrdered By: Dr. Morocho on 07-28-2022 ESR (Bld) [Velocity] 44 mm/h 0-30 [facility] Hematocrit Auto (Bld) [Volum e fraction]Ordered By: Dr. Morocho on 07-28-2022 Hematocrit (Bld) [Volume fraction] 31.4 % 37-47 [facility] MCHC Auto (RBC) [Mass/Vol]Or dered By: Dr. Morocho on 07-28-2022 MCHC (RBC) [Mass/Vol] 30.3 g/dL 32-36 [facility] No Panel InformationOrdered By: Dr. Morocho on 07-28-2022 27.0 pg 27.0-32.0 [facility] 15.6 % 11.6-14.6 [facility] 50.7 fl 35.1-43.9 [facility] 48 mL/min >60 [facility] 58 mL/min >60 [facility] 21.2 RATIO 10-20 [facility] 25.0 mmol/L 21.0-32.0 [facility] Platelets bldOrdered By: Dr. Morocho on 07-28-2022 Platelets (Bld) [#/Vol] 250 10*3/uL 150-450 [facility] Serum or plasma calcium keyona urement (mass/volume)Ordered By: Dr. Morocho on 07-28-2022 Calcium [Mass/Vol] 9.3 mg/dL 8.5-10.1 [facility] Serum or plasma creatinine m easurement (mass/volume)Ordered By: Dr. Morocho on 07-28-2022 Creatinine [Mass/Vol] 1.18 mg/dL 0.55-1.02 [facility] Serum or plasma urea nitroge n measurement (mass/volume)Ordered By: Dr. Morocho on 07-28-2022 Urea nitrogen [Mass/Vol] 25 mg/dL 7-18 [facility] Thin prep Papanicolaou smear with manual screeningOrdered By: Dr. Morocho on 07-28-2022 Thin prep Papanicolaou smear with manual screening 8 5-15 [facility] Vancomycin troughOrdered By: Dr. Morocho on 07-28-2022 Vancomycin trough [Mass/Vol] 16.6 ug/mL 5.0-15.0 [facility] INR in Blood by Coagulation assayOrdered By: Nadja Mckeon on 07-27-2022 INR Coag (Bld) [Relative time] 2.2 {INR} [facility] No Panel InformationOrdered By: Nadja Mckeon on 07-27-2022 23.9 SECONDS 11.7-14.9 [facility] Basophil percentageOrdered B y: Dr. Morocho on 07-21-2022 Basophil percentage 156 mg/dL 74-106 [facility] Basophil percentage 140 mmol/L 136-145 [facility] Basophil percentage 4.4 mmol/L 3.5-5.1 [facility] Basophil percentage 109 mmol/L 98-107 [facility] Basophils (Bld) [#/Vol] 7.9 10*3/uL 4.4-11.0 [facility] Blood erythrocytes count (nu mber/volume)Ordered By: Dr. Morocho on 07-21-2022 RBC (Bld) [#/Vol] 3.58 10*6/uL 4.2-5.4 [facility] Blood hemoglobin measurement (mass/volume)Ordered By: Dr. Morocho on 07-21-2022 Hemoglobin (Bld) [Mass/Vol] 9.7 g/dL 12.0-15.0 [facility] Blood platelet mean volumeOr dered By: Dr. Morocho on 07-21-2022 Platelet mean volume (Bld) [Entitic vol] 10.4 fL 6.2-12.0 [facility] Determination of erythrocyte mean corpuscular volume (MCV)Ordered By: Dr. Morocho on 07-21-2022 MCV (RBC) [Entitic vol] 86.9 fL 81-99 [facility] Erythrocyte sedimentation ra teOrdered By: Dr. Morocho on 07-21-2022 ESR (Bld) [Velocity] 45 mm/h 0-30 [facility] Hematocrit Auto (Bld) [Volum e fraction]Ordered By: Dr. Morocho on 07-21-2022 Hematocrit (Bld) [Volume fraction] 31.1 % 37-47 [facility] MCHC Auto (RBC) [Mass/Vol]Or dered By: Dr. Morocho on 07-21-2022 MCHC (RBC) [Mass/Vol] 31.2 g/dL 32-36 [facility] No Panel InformationOrdered By: Dr. Morocho on 07-21-2022 27.1 pg 27.0-32.0 [facility] 14.9 % 11.6-14.6 [facility] 47.8 fl 35.1-43.9 [facility] 36 mL/min >60 [facility] 44 mL/min >60 [facility] 24.0 RATIO 10-20 [facility] 24.0 mmol/L 21.0-32.0 [facility] Platelets bldOrdered By: Dr. Morocho on 07-21-2022 Platelets (Bld) [#/Vol] 239 10*3/uL 150-450 [facility] Serum or plasma calcium keyona urement (mass/volume)Ordered By: Dr. Morocho on 07-21-2022 Calcium [Mass/Vol] 9.4 mg/dL 8.5-10.1 [facility] Serum or plasma creatinine m easurement (mass/volume)Ordered By: Dr. Morocho on 07-21-2022 Creatinine [Mass/Vol] 1.50 mg/dL 0.55-1.02 [facility] Serum or plasma urea nitroge n measurement (mass/volume)Ordered By: Dr. Morocho on 07-21-2022 Urea nitrogen [Mass/Vol] 36 mg/dL 7-18 [facility] Thin prep Papanicolaou smear with manual screeningOrdered By: Dr. Morocho on 07-21-2022 Thin prep Papanicolaou smear with manual screening 7 5-15 [facility] Vancomycin troughOrdered By: Dr. Morocho on 07-21-2022 Vancomycin trough [Mass/Vol] 16.4 ug/mL 5.0-15.0 [facility] No Panel InformationOrdered By: Dr. Morocho on 07-18-2022 No growth in 5 days. [facility] Anaerobic cultureOrdered By: Dr. Wolff on 07-16-2022 Bacteria identified Anaer cx Nom (Unsp spec) No anaerobic bacteria isolated. [facility] Bacteria identified Cx Nom ( Wound)Ordered By: Dr. Wolff on 07-15-2022 Routine wound culture Enterobacter cloac ae complex [facility] Routine wound culture Meth. resistant Staph. aureus [facility] Glucose Glucometer (BldC) [M ass/Vol]Ordered By: Dr. Jasmine on 07-15-2022 Glucose [Mass/Vol] 247 mg/dL 74-106 [facility] INR in Blood by Coagulation assayOrdered By: Dr. Jasmine on 07-15-2022 INR Coag (Bld) [Relative time] 1.4 {INR} [facility] No Panel InformationOrdered By: Dr. Jasmine on 07-15-2022 16.8 SECONDS 11.7-14.9 [facility] Serum or plasma transthyreti n measurement (mass/volume)Ordered By: Dr. Wolff on 07-14-2022 Prealbumin [Mass/Vol] 13.3 mg/dL 20.0-40.0 [facility] Vancomycin troughOrdered By: Dr. Lopez on 07-14-2022 Vancomycin trough [Mass/Vol] 13.8 ug/mL 5.0-15.0 [facility] Basophil percentageOrdered B y: Dr. Wolff on 07-13-2022 Basophil percentage 122 mg/dL 74-106 [facility] Basophil percentage 138 mmol/L 136-145 [facility] Basophil percentage 4.3 mmol/L 3.5-5.1 [facility] Basophil percentage 107 mmol/L 98-107 [facility] Basophils (Bld) [#/Vol] 11.5 10*3/uL 4.4-11.0 [facility] Blood erythrocytes count (nu mber/volume)Ordered By: Dr. Wolff on 07-13-2022 RBC (Bld) [#/Vol] 3.80 10*6/uL 4.2-5.4 [facility] Blood hemoglobin measurement (mass/volume)Ordered By: Dr. Wolff on 07-13-2022 Hemoglobin (Bld) [Mass/Vol] 10.3 g/dL 12.0-15.0 [facility] Blood platelet mean volumeOr dered By: Dr. Wolff on 07-13-2022 Platelet mean volume (Bld) [Entitic vol] 9.7 fL 6.2-12.0 [facility] Determination of erythrocyte mean corpuscular volume (MCV)Ordered By: Dr. Wolff on 07-13-2022 MCV (RBC) [Entitic vol] 88.9 fL 81-99 [facility] Glucose Glucometer (dC) [M ass/Vol]Ordered By: Dr. Jasmine on 07-13-2022 Glucose [Mass/Vol] 158 mg/dL 74-106 [facility] Gram stain for investigation of transfusion reactionOrdered By: Dr. Wolff on 07-13-2022 Microscopic observation Gram stain Nom (Unsp spec) [facility] Hematocrit Auto (Bld) [Volum e fraction]Ordered By: Dr. Wolff on 07-13-2022 Hematocrit (Bld) [Volume fraction] 33.8 % 37-47 [facility] MCHC Auto (RBC) [Mass/Vol]Or dered By: Dr. Wolff on 07-13-2022 MCHC (RBC) [Mass/Vol] 30.5 g/dL 32-36 [facility] No Panel InformationOrdered By: Dr. Wolff on 07-13-2022 27.1 pg 27.0-32.0 [facility] 14.6 % 11.6-14.6 [facility] 47.3 fl 35.1-43.9 [facility] 43 mL/min >60 [facility] 52 mL/min >60 [facility] 30.15 ml/min [facility] 25.2 RATIO 10-20 [facility] 27.0 mmol/L 21.0-32.0 [facility] Platelets bldOrdered By: Dr. Wolff on 07-13-2022 Platelets (Bld) [#/Vol] 275 10*3/uL 150-450 [facility] Serum or plasma calcium keyona urement (mass/volume)Ordered By: Dr. Wolff on 07-13-2022 Calcium [Mass/Vol] 9.2 mg/dL 8.5-10.1 [facility] Serum or plasma creatinine m easurement (mass/volume)Ordered By: Dr. Wolff on 07-13-2022 Creatinine [Mass/Vol] 1.31 mg/dL 0.55-1.02 [facility] Serum or plasma urea nitroge n measurement (mass/volume)Ordered By: Dr. Wolff on 07-13-2022 Urea nitrogen [Mass/Vol] 33 mg/dL 7-18 [facility] Thin prep Papanicolaou smear with manual screeningOrdered By: Dr. Wolff on 07-13-2022 Thin prep Papanicolaou smear with manual screening 4 5-15 [facility] Absolute lymphocyte countOrd ered By: Dr. Lopez on 07-12-2022 Lymphocytes Auto (Unsp spec) [#/Vol] 1.94 10*3/uL 0.83-4.51 [facility] Basophil percentageOrdered B y: Dr. Lopez on 07-12-2022 Basophils (Bld) [#/Vol] 4.2 10*3/uL 2.0-7.7 [facility] Basophils/100 WBC (Bld) 61.5 % 47-70 [facility] Basophils/100 WBC (Bld) 4.0 % 0-5 [facility] Basophils/100 WBC (Bld) 0.6 % 0-1 [facility] Blood lymphocytes/100 leukoc ytesOrdered By: Dr. Lopez on 07-12-2022 Lymphocytes/100 WBC (Bld) 28.7 % 19-41 [facility] Blood monocytes/100 leukocyt esOrdered By: Dr. Lopez on 07-12-2022 Monocytes/100 WBC (Bld) 4.9 % 0-10 [facility] INR in Blood by Coagulation assayOrdered By: Dr. Guzman on 07-12-2022 INR Coag (Bld) [Relative time] 1.3 {INR} [facility] No Panel InformationOrdered By: Dr. Lopez on 07-12-2022 0.300 % 0.0-0.9 [facility] 0 % 0-5 [facility] No Panel InformationOrdered By: Dr. uGzman on 07-12-2022 16.0 SECONDS 11.7-14.9 [facility] Vancomycin troughOrdered By: Dr. Guzman on 07-11-2022 Vancomycin trough [Mass/Vol] 11.6 ug/mL 5.0-15.0 [facility] No Panel InformationOrdered By: Dr. Guzman on 07-10-2022 0.94 uIU/mL 0.358-3.74 [facility] Whole blood hemoglobin A1c/t otal hemoglobin ratio (mass fraction)Ordered By: Dr. Guzman on 07-10-2022 HbA1c (Bld) [Mass fraction] 6.3 % 3.8-5.6 [facility] Absolute lymphocyte countOrd ered By: Dr. Gonzalez on 07-09-2022 Lymphocytes Auto (Unsp spec) [#/Vol] 1.42 10*3/uL 0.83-4.51 [facility] Basophil percentageOrdered B y: Dr. Gonzalez on 07-09-2022 Basophil percentage 0.9 mmol/L 0.4-2.0 [facility] Basophils/100 WBC (Bld) 0.5 % 0-1 [facility] Chloride [Moles/Vol] 101 mmol/L 98-107 [facility] Eosinophils/100 WBC (Bld) 2.0 % 0-5 [facility] Glucose [Mass/Vol] 167 mg/dL 74-106 [facility] Comment on above: Fasting Glucose resu lt greater than or equal to 126 mg/dL suggests DIABETES MELLITUS per A.D.A. criteria. Lactate [Moles/Vol] 2.7 mmol/L 0.4-2.0 [facility] Comment on above: Critical Result(s) C alled at: 16:40:35 07/09/2022 by: Bartolo Benavides RN ED . Results read back by same. Neutrophils (Bld) [#/Vol] 6.7 10*3/uL 2.0-7.7 [facility] Neutrophils/100 WBC (Bld) 75.9 % 47-70 [facility] Potassium [Moles/Vol] 4.5 mmol/L 3.5-5.1 [facility] Sodium [Moles/Vol] 135 mmol/L 136-145 [facility] WBC (Bld) [#/Vol] 8.8 10*3/uL 4.4-11.0 [facility] Basophil percentageOrdered B y: Dr. Guzman on 07-09-2022 Basophil percentage 4.3 mg/dL 2.5-4.9 [facility] Blood erythrocytes count (nu mber/volume)Ordered By: Dr. Gonzalez on 07-09-2022 RBC (Bld) [#/Vol] 4.37 10*6/uL 4.2-5.4 [facility] Blood hemoglobin measurement (mass/volume)Ordered By: Dr. Gonzalez on 07-09-2022 Hemoglobin (Bld) [Mass/Vol] 12.0 g/dL 12.0-15.0 [facility] Blood lymphocytes/100 leukoc ytesOrdered By: Dr. Gonzalez on 07-09-2022 Lymphocytes/100 WBC (Bld) 16.2 % 19-41 [facility] Blood monocytes/100 leukocyt esOrdered By: Dr. Gonzalez on 07-09-2022 Monocytes/100 WBC (Bld) 4.9 % 0-10 [facility] Blood platelet mean volumeOr dered By: Dr. Gonzalez on 07-09-2022 Platelet mean volume (Bld) [Entitic vol] 10.0 fL 6.2-12.0 [facility] Determination of erythrocyte mean corpuscular volume (MCV)Ordered By: Dr. Gonzalez on 07-09-2022 MCV (RBC) [Entitic vol] 86.3 fL 81-99 [facility] Hematocrit Auto (Bld) [Volum e fraction]Ordered By: Dr. Gonzalez on 07-09-2022 Hematocrit (Bld) [Volume fraction] 37.7 % 37-47 [facility] INR in Blood by Coagulation assayOrdered By: Dr. Guzman on 07-09-2022 INR Coag (Bld) [Relative time] 5.0 {INR} [facility] Comment on above: CRITICAL VALUE VERIF IED. CALLED TO [id number] Angie Gaines.RESULTS READ BACK BY SAME . Laboratory - Chemistry and C hemistry - challengeOrdered By: Dr. Gonzalez on 07-09-2022 CO2 [Moles/Vol] 25.0 mmol/L 21.0-32.0 [facility] Urea nitrogen/Creatinine [Mass ratio] 29.2 mg/mg 10-20 [facility] Laboratory - Chemistry and C hemistry - challengeOrdered By: Dr. Guzman on 07-09-2022 Magnesium [Mass/Vol] 2.3 mg/dL 1.6-2.6 [facility] Laboratory - CoagulationOrde red By: Dr. Guzman on 07-09-2022 PT Coag (PPP) [Time] 46.0 s 11.7-14.9 [facility] Laboratory - Hematology and Cell countsOrdered By: Dr. Gonzalez on 07-09-2022 Erythrocyte distribution width (RBC) [Entitic vol] 48.1 fL 35.1-43.9 [facility] Erythrocyte distribution width (RBC) [Ratio] 15.2 % 11.6-14.6 [facility] Immature granulocytes/100 WBC (Bld) 0.500 % 0.0-0.9 [facility] Comment on above: IG% - Immature Granu locytes (promyelocytes, myelocytes and metamyelocytes) > 1% indicates that a LEFT SHIFT is Present. MCH (RBC) [Entitic mass] 27.5 pg 27.0-32.0 [facility] Nucleated RBC/100 WBC (Bld) [Ratio] 0 % 0-5 [facility] Laboratory - Microbiology an d Antimicrobial susceptibilityOrdered By: Dr. Barrera on 07-09-2022 Bacteria identified Cx Nom (Bld) Meth. resistant Staph. aureus [facility] MCHC Auto (RBC) [Mass/Vol]Or dered By: Dr. Gonzalez on 07-09-2022 MCHC (RBC) [Mass/Vol] 31.8 g/dL 32-36 [facility] No Panel InformationOrdered By: Dr. Gonzalez on 07-09-2022 Estimated GFR (MDRD) Amer 27 mL/min >60 [facility] Comment on above: GFR Calc Estimated GFR (MDRD) Non-Af Amer 22 mL/min >60 [facility] Comment on above: Non- GFR Calc No Panel InformationOrdered By: Dr. Guzman on 07-09-2022 2.3 mg/dL 1.6-2.6 [facility] No Panel InformationOrdered By: Dr. Barrera on 07-09-2022 Meth. resistant Staph. aureus [facility] Platelets bldOrdered By: Dr. Gonzalez on 07-09-2022 Platelets (Bld) [#/Vol] 369 10*3/uL 150-450 [facility] Serum or plasma calcium keyona urement (mass/volume)Ordered By: Dr. Gonzalez on 07-09-2022 Calcium [Mass/Vol] 9.9 mg/dL 8.5-10.1 [facility] Serum or plasma creatinine m easurement (mass/volume)Ordered By: Dr. Gonzalez on 07-09-2022 Creatinine [Mass/Vol] 2.33 mg/dL 0.55-1.02 [facility] Comment on above: The validity of the calculated GFR & GFRAA in patients over 70 years has not been determined. Clinical correlation is essential. Serum or plasma urea nitroge n measurement (mass/volume)Ordered By: Dr. Gonzalez on 07-09-2022 Urea nitrogen [Mass/Vol] 68 mg/dL 7-18 [facility] Thin prep Papanicolaou smear with manual screeningOrdered By: Dr. Gonzalez on 07-09-2022 Thin prep Papanicolaou smear with manual screening 9 5-15 [facility] Bacteria identified Cx Nom ( Wound)Ordered By: Dr. Barrera on 07-08-2022 Wound Culture Meth. resistant Staph. aureus [facility] Routine wound culture Meth. resistant Staph. aureus [facility] Gram stain for investigation of transfusion reactionOrdered By: Dr. Barrera on 07-07-2022 Microscopic observation Gram stain Nom (Unsp spec) [facility] Absolute lymphocyte countOrd ered By: Dr. Barrera on 07-06-2022 Lymphocytes Auto (Unsp spec) [#/Vol] 0.75 10*3/uL 0.83-4.51 [facility] Basophil percentageOrdered B y: Dr. Barrera on 07-06-2022 Basophil percentage 2.3 mmol/L 0.4-2.0 [facility] Basophils (Bld) [#/Vol] 11.9 10*3/uL 4.4-11.0 [facility] Basophils (Bld) [#/Vol] 10.4 10*3/uL 2.0-7.7 [facility] Basophils/100 WBC (Bld) 0.3 % 0-1 [facility] Basophils/100 WBC (Bld) 88.1 % 47-70 [facility] Eosinophils/100 WBC (Bld) 0.3 % 0-5 [facility] Lactate [Moles/Vol] 2.3 mmol/L 0.4-2.0 [facility] Comment on above: Critical Result(s) C alled at: 16:20:43 07/06/2022 to chris by: FABY GARZA. Results read back by same. Neutrophils (Bld) [#/Vol] 10.4 10*3/uL 2.0-7.7 [facility] Neutrophils/100 WBC (Bld) 88.1 % 47-70 [facility] WBC (Bld) [#/Vol] 11.9 10*3/uL 4.4-11.0 [facility] Basophil percentage 168 mg/dL 74-106 [facility] Basophil percentage 135 mmol/L 136-145 [facility] Basophil percentage 4.8 mmol/L 3.5-5.1 [facility] Basophil percentage 102 mmol/L 98-107 [facility] Chloride [Moles/Vol] 102 mmol/L 98-107 [facility] Glucose [Mass/Vol] 168 mg/dL 74-106 [facility] Comment on above: Fasting Glucose resu lt greater than or equal to 126 mg/dL suggests DIABETES MELLITUS per A.D.A. criteria. Potassium [Moles/Vol] 4.8 mmol/L 3.5-5.1 [facility] Comment on above: Moderate Hemolysis, Result may be falsely increased. Sodium [Moles/Vol] 135 mmol/L 136-145 [facility] Blood erythrocytes count (nu mber/volume)Ordered By: Dr. Barrera on 07-06-2022 RBC (Bld) [#/Vol] 4.32 10*6/uL 4.2-5.4 [facility] Blood hemoglobin measurement (mass/volume)Ordered By: Dr. Barrera on 07-06-2022 Hemoglobin (Bld) [Mass/Vol] 11.7 g/dL 12.0-15.0 [facility] Blood lymphocytes/100 leukoc ytesOrdered By: Dr. Barrera on 07-06-2022 Lymphocytes/100 WBC (Bld) 6.3 % 19-41 [facility] Blood monocytes/100 leukocyt esOrdered By: Dr. Barrera on 07-06-2022 Monocytes/100 WBC (Bld) 4.3 % 0-10 [facility] Blood platelet mean volumeOr dered By: Dr. Barrera on 07-06-2022 Platelet mean volume (Bld) [Entitic vol] 10.1 fL 6.2-12.0 [facility] Determination of erythrocyte mean corpuscular volume (MCV)Ordered By: Dr. Barrera on 07-06-2022 MCV (RBC) [Entitic vol] 86.8 fL 81-99 [facility] Hematocrit Auto (Bld) [Volum e fraction]Ordered By: Dr. Barrera on 07-06-2022 Hematocrit (Bld) [Volume fraction] 37.5 % 37-47 [facility] Laboratory - Chemistry and C hemistry - challengeOrdered By: Dr. Barrera on 07-06-2022 CO2 [Moles/Vol] 25.0 mmol/L 21.0-32.0 [facility] Urea nitrogen/Creatinine [Mass ratio] 29.2 mg/mg 10-20 [facility] Laboratory - Hematology and Cell countsOrdered By: Dr. Barrera on 07-06-2022 Erythrocyte distribution width (RBC) [Entitic vol] 48.4 fL 35.1-43.9 [facility] Erythrocyte distribution width (RBC) [Ratio] 15.1 % 11.6-14.6 [facility] Immature granulocytes/100 WBC (Bld) 0.700 % 0.0-0.9 [facility] Comment on above: IG% - Immature Granu locytes (promyelocytes, myelocytes and metamyelocytes) > 1% indicates that a LEFT SHIFT is Present. MCH (RBC) [Entitic mass] 27.1 pg 27.0-32.0 [facility] Nucleated RBC/100 WBC (Bld) [Ratio] 0 % 0-5 [facility] Auto (RBC) [Mass/Vol]Or dered By: Dr. Barrera on 07-06-2022 MCHC (RBC) [Mass/Vol] 31.2 g/dL 32-36 [facility] No Panel InformationOrdered By: Dr. Barrera on 07-06-2022 27.1 pg 27.0-32.0 [facility] 15.1 % 11.6-14.6 [facility] 48.4 fl 35.1-43.9 [facility] 0.700 % 0.0-0.9 [facility] 0 % 0-5 [facility] Estimated GFR (MDRD) Amer 52 mL/min >60 [facility] Comment on above: GFR Calc Estimated GFR (MDRD) Non-Af Amer 43 mL/min >60 [facility] Comment on above: Non- GFR Calc 43 mL/min >60 [facility] 52 mL/min >60 [facility] 29.2 RATIO 10-20 [facility] 25.0 mmol/L 21.0-32.0 [facility] Platelets bldOrdered By: Dr. Barrera on 07-06-2022 Platelets (Bld) [#/Vol] 281 10*3/uL 150-450 [facility] Serum or plasma calcium keyona urement (mass/volume)Ordered By: Dr. Barrera on 07-06-2022 Calcium [Mass/Vol] 9.7 mg/dL 8.5-10.1 [facility] Serum or plasma creatinine m easurement (mass/volume)Ordered By: Dr. Barrera on 07-06-2022 Creatinine [Mass/Vol] 1.30 mg/dL 0.55-1.02 [facility] Comment on above: The validity of the calculated GFR & GFRAA in patients over 70 years has not been determined. Clinical correlation is essential. Serum or plasma urea nitroge n measurement (mass/volume)Ordered By: Dr. Barrera on 07-06-2022 Urea nitrogen [Mass/Vol] 38 mg/dL 7-18 [facility] Thin prep Papanicolaou smear with manual screeningOrdered By: Dr. Barrera on 07-06-2022 Thin prep Papanicolaou smear with manual screening 8 5-15 [facility] INR in Blood by Coagulation assayOrdered By: Dr. Reagan on 07-03-2022 INR Coag (Bld) [Relative time] 2.5 {INR} [facility] Laboratory - CoagulationOrde red By: Dr. Reagan on 07-03-2022 PT Coag (PPP) [Time] 26.4 s 11.7-14.9 [facility] No Panel InformationOrdered By: Dr. Reagan on 07-03-2022 26.4 SECONDS 11.7-14.9 [facility] Absolute lymphocyte countOrd ered By: Dr. Reagan on 06-04-2022 Lymphocytes Auto (Unsp spec) [#/Vol] 1.82 10*3/uL 0.83-4.51 [facility] Basophil percentageOrdered B y: Dr. Reagan on 06-04-2022 Basophil percentage 102 mg/dL 74-106 [facility] Basophil percentage 8.2 g/dL 6.4-8.2 [facility] Basophil percentage 0.50 mg/dL 0.20-1.00 [facility] Basophil percentage 185 mg/dL <200 [facility] Basophil percentage 158 mg/dL <199 [facility] Basophil percentage 139 mmol/L 136-145 [facility] Basophil percentage 4.4 mmol/L 3.5-5.1 [facility] Basophil percentage 106 mmol/L 98-107 [facility] Basophils (Bld) [#/Vol] 9.2 10*3/uL 4.4-11.0 [facility] Basophils (Bld) [#/Vol] 6.4 10*3/uL 2.0-7.7 [facility] Basophils/100 WBC (Bld) 0.4 % 0-1 [facility] Basophils/100 WBC (Bld) 70.1 % 47-70 [facility] Basophils/100 WBC (Bld) 3.6 % 0-5 [facility] Bilirubin [Mass/Vol] 0.50 mg/dL 0.20-1.00 [facility] Comment on above: For patients on eltr ombopag therapy, use of Dimension [place] TBIL is not recommended. Chloride [Moles/Vol] 106 mmol/L 98-107 [facility] Cholesterol [Mass/Vol] 185 mg/dL <200 [facility] Comment on above: <200 mg/dL Desirable 200-240 mg/dL Borderline >240 mg/dL High Risk Eosinophils/100 WBC (Bld) 3.6 % 0-5 [facility] Glucose [Mass/Vol] 102 mg/dL 74-106 [facility] Comment on above: Fasting Glucose resu lt from 100 to 125 mg/dL suggests IMPAIRED HOMEOSTASIS per A.D.A. criteria. Neutrophils (Bld) [#/Vol] 6.4 10*3/uL 2.0-7.7 [facility] Neutrophils/100 WBC (Bld) 70.1 % 47-70 [facility] Potassium [Moles/Vol] 4.4 mmol/L 3.5-5.1 [facility] Protein [Mass/Vol] 8.2 g/dL 6.4-8.2 [facility] Sodium [Moles/Vol] 139 mmol/L 136-145 [facility] Triglyceride [Mass/Vol] 158 mg/dL <199 [facility] Comment on above: The drugs N-Acetylcy steine and Metamizole may falsely depress this assay.Serum Triglycerides Reference Interval Normal <150 mg/dL Borderline high 150 - 199 mg/dL High 200 - 499 mg/dL Very High > or = 500 mg/dL WBC (Bld) [#/Vol] 9.2 10*3/uL 4.4-11.0 [facility] Blood erythrocytes count (nu mber/volume)Ordered By: Dr. Reagan on 06-04-2022 RBC (Bld) [#/Vol] 4.30 10*6/uL 4.2-5.4 [facility] Blood hemoglobin measurement (mass/volume)Ordered By: Dr. Reagan on 06-04-2022 Hemoglobin (Bld) [Mass/Vol] 11.8 g/dL 12.0-15.0 [facility] Blood lymphocytes/100 leukoc ytesOrdered By: Dr. Reagan on 06-04-2022 Lymphocytes/100 WBC (Bld) 19.9 % 19-41 [facility] Blood monocytes/100 leukocyt esOrdered By: Dr. Reagan on 06-04-2022 Monocytes/100 WBC (Bld) 5.7 % 0-10 [facility] Blood platelet mean volumeOr dered By: Dr. Reagan on 06-04-2022 Platelet mean volume (Bld) [Entitic vol] 10.3 fL 6.2-12.0 [facility] Determination of erythrocyte mean corpuscular volume (MCV)Ordered By: Dr. Reagan on 06-04-2022 MCV (RBC) [Entitic vol] 88.6 fL 81-99 [facility] Hematocrit Auto (Bld) [Volum e fraction]Ordered By: Dr. Reagan on 06-04-2022 Hematocrit (Bld) [Volume fraction] 38.1 % 37-47 [facility] Laboratory - Chemistry and C hemistry - challengeOrdered By: Dr. Reagan on 06-04-2022 ALP [Catalytic activity/Vol] 65 U/L 45-117 [facility] ALT [Catalytic activity/Vol] 27 U/L 13-56 [facility] CO2 [Moles/Vol] 27.0 mmol/L 21.0-32.0 [facility] Globulin (S) [Mass/Vol] 4.5 g/dL 2.2-4.2 [facility] Urea nitrogen/Creatinine [Mass ratio] 29.4 mg/mg -20 [facility] Laboratory - Hematology and Cell countson 06-04-2022 HbA1c (Bld) [Mass fraction] 6.1 % 4.2-6.3 [facility] - Hematology and Cell countsOrdered By: Dr. Reagan on 06-04-2022 Erythrocyte distribution width (RBC) [Entitic vol] 48.9 fL 35.1-43.9 [facility] Erythrocyte distribution width (RBC) [Ratio] 15.3 % 11.6-14.6 [facility] Immature granulocytes/100 WBC (Bld) 0.300 % 0.0-0.9 [facility] Comment on above: IG% - Immature Granu locytes (promyelocytes, myelocytes and metamyelocytes) > 1% indicates that a LEFT SHIFT is Present. MCH (RBC) [Entitic mass] 27.4 pg 27.0-32.0 [facility] Nucleated RBC/100 WBC (Bld) [Ratio] 0 % 0-5 [facility] ([facility]BC) [Mass/Vol]Or dered By: Dr. Reagan on 06-04-2022 MCHC (RBC) [Mass/Vol] 31.0 g/dL 32-36 [facility] No Panel Informationon 06-04 6.1 % 4.2-6.3 [facility] No Panel InformationOrdered By: Dr. Reagan on 06-04-2022 Estimated GFR (MDRD) Amer 49 mL/min >60 [facility] Comment on above: GFR Calc Estimated GFR (MDRD) Non-Af Amer 41 mL/min >60 [facility] Comment on above: Non- GFR Calc 27.4 pg 27.0-32.0 [facility] 15.3 % 11.6-14.6 [facility] 48.9 fl 35.1-43.9 [facility] 0.300 % 0.0-0.9 [facility] 0 % 0-5 [facility] 41 mL/min >60 [facility] 49 mL/min >60 [facility] 29.4 RATIO 10-20 [facility] 4.5 g/dL 2.2-4.2 [facility] 65 U/L 45-117 [facility] 27 U/L 13-56 [facility] 27.0 mmol/L 21.0-32.0 [facility] Platelets bldOrdered By: Dr. Reagan on 06-04-2022 Platelets (Bld) [#/Vol] 305 10*3/uL 150-450 [facility] Serum or plasma albumin keyona urement (mass/volume)Ordered By: Dr. Reagan on 06-04-2022 Albumin [Mass/Vol] 3.7 g/dL 3.2-5.0 [facility] Serum or plasma albumin/glob ulin mass ratioOrdered By: Dr. Reagan on 06-04-2022 Albumin/Globulin [Mass ratio] 0.8 {ratio} 0.9-2.4 [facility] Serum or plasma calcium keyona urement (mass/volume)Ordered By: Dr. Reagan on 06-04-2022 Calcium [Mass/Vol] 10.2 mg/dL 8.5-10.1 [facility] Serum or plasma cholesterol in HDL measurement (mass/volume)Ordered By: Dr. Reagan on 06-04-2022 Cholesterol in HDL [Mass/Vol] 62 mg/dL >40 [facility] Comment on above: The drugs N-Acetylcy steine and Metamizole may falsely depress this assay. Reference Range HDL <40 mg/dL Low HDL Cholesterol HDL >or= 60 mg/dL High HDL Cholesterol Serum or plasma cholesterol in VLDL measurement (mass/volume)Ordered By: Dr. Reagan on 06-04-2022 Cholesterol in VLDL [Mass/Vol] 32 mg/dL 5-40 [facility] Serum or plasma creatinine m easurement (mass/volume)Ordered By: Dr. Reagan on 06-04-2022 Creatinine [Mass/Vol] 1.36 mg/dL 0.55-1.02 [facility] Comment on above: The validity of the calculated GFR & GFRAA in patients over 70 years has not been determined. Clinical correlation is essential. Serum or plasma low density lipoprotein (LDL) cholesterol measurement (mass/volume)Ordered By: Dr. Reagan on 06-04-2022 Cholesterol in LDL [Mass/Vol] 91 mg/dL 0-130 [facility] Serum or plasma urea nitroge n measurement (mass/volume)Ordered By: Dr. Reagan on 06-04-2022 Urea nitrogen [Mass/Vol] 40 mg/dL 7-18 [facility] Thin prep Papanicolaou smear with manual screeningOrdered By: Dr. Reagan on 06-04-2022 Thin prep Papanicolaou smear with manual screening 22 U/L 15-37 [facility] Thin prep Papanicolaou smear with manual screening 6 5-15 [facility] Basophil percentageOrdered B y: Dr. Reagan on 03-03-2022 Chloride [Moles/Vol] 110 mmol/L 98-107 [facility] Glucose [Mass/Vol] 130 mg/dL 74-106 [facility] Comment on above: Fasting Glucose resu lt greater than or equal to 126 mg/dL suggests DIABETES MELLITUS per A.D.A. criteria. Potassium [Moles/Vol] 4.6 mmol/L 3.5-5.1 [facility] Sodium [Moles/Vol] 142 mmol/L 136-145 [facility] Laboratory - Chemistry and C hemistry - challengeOrdered By: Dr. Reagan on 03-03-2022 CO2 [Moles/Vol] 26.0 mmol/L 21.0-32.0 [facility] Urea nitrogen/Creatinine [Mass ratio] 24.4 mg/mg 03-04 [facility] Laboratory - Hematology and Cell countson 03-03-2022 HbA1c (Bld) [Mass fraction] 3.4 % 4.2-6.3 [facility] No Panel InformationOrdered By: Dr. Reagan on 03-03-2022 Estimated GFR (MDRD) Amer 58 mL/min >60 [facility] Comment on above: GFR Calc Estimated GFR (MDRD) Non-Af Amer 48 mL/min >60 [facility] Comment on above: Non- GFR Calc Vitamin D 25-Hydroxy 43.2 ng/mL [facility] Comment on above: Vitamin D 25(OH) Sta tus Range Deficiency <20 ng/mL (50nmol/L) Insufficiency 20 - 30 ng/mL (50 - 75 nmol/L) Sufficiency 30 - 100 ng/mL (75 - 250 nmol/L) Toxicity >100 ng/mL (>250 nmol/L) Serum or plasma calcium keyona urement (mass/volume)Ordered By: Dr. Reagan on 03-03-2022 Calcium [Mass/Vol] 9.5 mg/dL 8.5-10.1 [facility] Serum or plasma creatinine m easurement (mass/volume)Ordered By: Dr. Reagan on 03-03-2022 Creatinine [Mass/Vol] 1.19 mg/dL 0.55-1.02 [facility] Comment on above: The validity of the calculated GFR & GFRAA in patients over 70 years has not been determined. Clinical correlation is essential. Serum or plasma urea nitroge n measurement (mass/volume)Ordered By: Dr. Reagan on 03-03-2022 Urea nitrogen [Mass/Vol] 29 mg/dL 7-18 [facility] Thin prep Papanicolaou smear with manual screeningOrdered By: Dr. Reagan on 03-03-2022 Thin prep Papanicolaou smear with manual screening 6 5-15 [facility] Whole blood hemoglobin A1c/t otal hemoglobin ratio (mass fraction)Ordered By: Dr. Reagan on 03-03-2022 HbA1c (Bld) [Mass fraction] 6.1 % 3.8-5.6 [facility] Comment on above: Normal < 5.7 % Predi abetic 5.7 - 6.4 % Diabetic >or= 6.5 % Please note range changes. Absolute lymphocyte counton 12-02-2021 Lymphocytes Auto (Unsp spec) [#/Vol] 1.56 10*3/uL 0.83-4.51 [facility] Work Phone: Basophil percentageon 2021 Basophils/100 WBC (Bld) 0.7 % 0-1 [facility] Work Phone: [phone] Bilirubin [Mass/Vol] 0.50 mg/dL 0.20-1.00 [facility] Work Phone: [phone] Comment on above: For patients on eltr ombopag therapy, use of Dimension [place] TBIL is not recommended. Chloride [Moles/Vol] 107 mmol/L 98-107 [facility] Work Phone: [phone] Eosinophils/100 WBC (Bld) 3.2 % 0-5 [facility] Work Phone: [phone] Glucose [Mass/Vol] 147 mg/dL 74-106 [facility] Work Phone: [phone] Comment on above: Fasting Glucose resu lt greater than or equal to 126 mg/dL suggests DIABETES MELLITUS per A.D.A. criteria. Neutrophils (Bld) [#/Vol] 6.3 10*3/uL 2.0-7.7 [facility] Work Phone: [phone] Neutrophils/100 WBC (Bld) 71.7 % 47-70 [facility] Work Phone: [phone] Potassium [Moles/Vol] 4.1 mmol/L 3.5-5.1 [facility] Work Phone: [phone] Protein [Mass/Vol] 7.8 g/dL 6.4-8.2 [facility] Work Phone: Sodium [Moles/Vol] 142 mmol/L 136-145 [facility] Work Phone: WBC (Bld) [#/Vol] 8.8 10*3/uL 4.4-11.0 [facility] Work Phone: Blood erythrocytes count (nu mber/volume)on 12-02-2021 RBC (Bld) [#/Vol] 4.36 10*6/uL 4.2-5.4 [facility]: Blood hemoglobin measurement (mass/volume)on 12-02-2021 Hemoglobin (Bld) [Mass/Vol] 11.7 g/dL 12.0-15.0 [facility] Work Phone: Blood lymphocytes/100 leukoc yteson 12-02-2021 Lymphocytes/100 WBC (Bld) 17.8 % 19-41 [facility] Work Phone: Blood monocytes/100 leukocyt eson 12-02-2021 Monocytes/100 WBC (Bld) 5.1 % 0-10 [facility] Work Phone: Blood platelet mean volumeon 12-02-2021 Platelet mean volume (Bld) [Entitic vol] 10.8 fL 6.2-12.0 [facility] Work Phone: Determination of erythrocyte mean corpuscular volume (MCV)on 12-02-2021 MCV (RBC) [Entitic vol] 87.2 fL 81-99 [facility] Work Phone: Hematocrit Auto (Bld) [Volum e fraction]on 12-02-2021 Hematocrit (Bld) [Volume fraction] 38.0 % 37-47 [facility] Work Phone: Laboratory - Chemistry and C hemistry - challengeon 12-02-2021 ALP [Catalytic activity/Vol] 75 U/L 45-117 [facility] Work Phone: ALT [Catalytic activity/Vol] 23 U/L 13-56 [facility] Work Phone: CO2 [Moles/Vol] 27.0 mmol/L 21.0-32.0 [facility] Work Phone: Globulin (S) [Mass/Vol] 4.3 g/dL 2.2-4.2 [facility] Work Phone: Urea nitrogen/Creatinine [Mass ratio] 29.3 mg/mg 10-20 [facility] Work Phone: [phone] Laboratory - Hematology and Cell countson 12-02-2021 Erythrocyte distribution width (RBC) [Entitic vol] 46.9 fL 35.1-43.9 [facility] Work Phone: Erythrocyte distribution width (RBC) [Ratio] 14.6 % 11.6-14.6 [facility] Work Phone: Immature granulocytes/100 WBC (Bld) 1.500 % 0.0-0.9 [facility] Work Phone: Comment on above: IG% - Immature Granu locytes (promyelocytes, myelocytes and metamyelocytes) > 1% indicates that a LEFT SHIFT is Present. MCH (RBC) [Entitic mass] 26.8 pg 27.0-32.0 [facility] Work Phone: Nucleated RBC/100 WBC (Bld) [Ratio] 0 % 0-5 [facility] Work Phone: MCHC Auto (RBC) [Mass/Vol]on 12-02-2021 MCHC (RBC) [Mass/Vol] 30.8 g/dL 32-36 [facility]: No Panel Informationon 12-02 Estimated GFR (MDRD) Amer 51 mL/min >60 [facility] Work Phone: Comment on above: GFR Calc Estimated GFR (MDRD) Non-Af Amer 42 mL/min >60 [facility] Work Phone: Comment on above: Non- GFR Calc Platelets bldon 12-02-2021 Platelets (Bld) [#/Vol] 271 10*3/uL 150-450 [facility] Work Phone: Serum or plasma albumin keyona urement (mass/volume)on 12-02-2021 Albumin [Mass/Vol] 3.5 g/dL 3.2-5.0 [facility] Work Phone: Serum or plasma albumin/glob ulin mass ratioon 12-02-2021 Albumin/Globulin [Mass ratio] 0.8 {ratio} 0.9-2.4 [facility] Work Phone: Serum or plasma calcium keyona urement (mass/volume)on 12-02-2021 Calcium [Mass/Vol] 9.6 mg/dL 8.5-10.1 [facility] Work Phone: Serum or plasma creatinine m easurement (mass/volume)on 12-02-2021 Creatinine [Mass/Vol] 1.33 mg/dL 0.55-1.02 [facility] Work Phone: Comment on above: The validity of the calculated GFR & GFRAA in patients over 70 years has not been determined. Clinical correlation is essential. Serum or plasma urea nitroge n measurement (mass/volume)on 12-02-2021 Urea nitrogen [Mass/Vol] 39 mg/dL 7-18 [facility] Work Phone: Thin prep Papanicolaou smear with manual screeningon 12-02-2021 Thin prep Papanicolaou smear with manual screening 18 U/L 15-37 [facility] Work Phone: Thin prep Papanicolaou smear with manual screening 8 5-15 [facility] Work Phone: Whole blood hemoglobin A1c/t otal hemoglobin ratio (mass fraction)on 12-02-2021 HbA1c (Bld) [Mass fraction] 6.1 % 3.8-5.6 [facility] Work Phone: Comment on above: Normal < 5.7 % Predi abetic 5.7 - 6.4 % Diabetic >or= 6.5 % Please note range changes. Absolute lymphocyte counton 09-17-2021 Lymphocytes Auto (Unsp spec) [#/Vol] 1.95 10*3/uL 0.83-4.51 [facility] Work Phone: Basophil percentageon 2021 Basophil percentage 115 mg/dL 74-106 [facility] Work Phone: Basophil percentage 139 mmol/L 136-145 [facility] Work Phone: Basophil percentage 3.9 mmol/L 3.5-5.1 [facility] Work Phone: Basophil percentage 105 mmol/L 98-107 [facility] Work Phone: Basophils (Bld) [#/Vol] 8.5 10*3/uL 4.4-11.0 [facility] Work Phone: Basophils (Bld) [#/Vol] 5.7 10*3/uL 2.0-7.7 [facility] Work Phone: Basophils/100 WBC (Bld) 67.2 % 47-70 [facility] Work Phone: Basophils/100 WBC (Bld) 3.8 % 0-5 [facility] Work Phone: Basophils/100 WBC (Bld) 0.4 % 0-1 [facility] Work Phone: Chloride [Moles/Vol] 105 mmol/L 98-107 [facility] Work [facility]: Eosinophils/100 WBC (Bld) 3.8 % 0-5 [facility] Work Phone: Glucose [Mass/Vol] 115 mg/dL 74-106 [facility] Work Phone: Comment on above: Fasting Glucose resu lt from 100 to 125 mg/dL suggests IMPAIRED HOMEOSTASIS per A.D.A. criteria. Neutrophils (Bld) [#/Vol] 5.7 10*3/uL 2.0-7.7 [facility] Work Phone: Neutrophils/100 WBC (Bld) 67.2 % 47-70 [facility] Work Phone: Potassium [Moles/Vol] 3.9 mmol/L 3.5-5.1 [facility] Work [facility]: Sodium [Moles/Vol] 139 mmol/L 136-145 [facility] Work Phone: WBC (Bld) [#/Vol] 8.5 10*3/uL 4.4-11.0 [facility] Work Phone: Blood erythrocytes count (nu mber/volume)on 09-17-2021 RBC (Bld) [#/Vol] 3.56 10*6/uL 4.2-5.4 [facility]: Blood hemoglobin measurement (mass/volume)on 09-17-2021 Hemoglobin (Bld) [Mass/Vol] 9.6 g/dL 12.0-15.0 [facility] Work Phone: Blood lymphocytes/100 leukoc yteson 09-17-2021 Lymphocytes/100 WBC (Bld) 22.9 % 19-41 [facility] Work Phone: Blood monocytes/100 leukocyt eson 09-17-2021 Monocytes/100 WBC (Bld) 5.3 % 0-10 [facility] Work Phone: Blood platelet mean volumeon 09-17-2021 Platelet mean volume (Bld) [Entitic vol] 10.3 fL 6.2-12.0 [facility] Work Phone: Determination of erythrocyte mean corpuscular volume (MCV)on 09-17-2021 MCV (RBC) [Entitic vol] 86.0 fL 81-99 [facility] Work Phone: Hematocrit Auto (Bld) [Volum e fraction]on 09-17-2021 Hematocrit (Bld) [Volume fraction] 30.6 % 37-47 [facility] Work Phone: Laboratory - Chemistry and C hemistry - challengeon 09-17-2021 CO2 [Moles/Vol] 28.0 mmol/L 21.0-32.0 [facility] Work Phone: Urea nitrogen/Creatinine [Mass ratio] 20.5 mg/mg 10-20 [facility] Work Phone: Laboratory - Hematology and Cell countson 09-17-2021 Erythrocyte distribution width (RBC) [Entitic vol] 47.5 fL 35.1-43.9 [facility] Work Phone: Erythrocyte distribution width (RBC) [Ratio] 15.0 % 11.6-14.6 [facility] Work Phone: Immature granulocytes/100 WBC (Bld) 0.400 % 0.0-0.9 [facility] Work Phone: Comment on above: IG% - Immature Granu locytes (promyelocytes, myelocytes and metamyelocytes) > 1% indicates that a LEFT SHIFT is Present. MCH (RBC) [Entitic mass] 27.0 pg 27.0-32.0 [facility] Work Phone: Nucleated RBC/100 WBC (Bld) [Ratio] 0 % 0-5 [facility] Work Phone: MCHC Auto (RBC) [Mass/Vol]on 09-17-2021 MCHC (RBC) [Mass/Vol] 31.4 g/dL 32-36 [facility] Work Phone: No Panel Informationon 09-17 Estimated GFR (MDRD) Amer 37 mL/min >60 [facility] Work Phone: Comment on above: GFR Calc Estimated GFR (MDRD) Non-Af Amer 30 mL/min >60 [facility] Work Phone: Comment on above: Non- GFR Calc 27.0 pg 27.0-32.0 [facility] Work Phone: 15.0 % 11.6-14.6 [facility] Work Phone: 47.5 fl 35.1-43.9 [facility] Work Phone: 0.400 % 0.0-0.9 [facility] Work Phone: 0 % 0-5 [facility] Work Phone: 30 mL/min >60 [facility] Work Phone: 37 mL/min >60 [facility] Work Phone: 20.5 RATIO 10-20 [facility] Work Phone: 28.0 mmol/L 21.0-32.0 [facility] Work Phone: Platelets bldon 09-17-2021 Platelets (Bld) [#/Vol] 232 10*3/uL 150-450 [facility] Work Phone: Serum or plasma calcium keyona urement (mass/volume)on 09-17-2021 Calcium [Mass/Vol] 8.6 mg/dL 8.5-10.1 [facility] Work Phone: Serum or plasma creatinine m easurement (mass/volume)on 09-17-2021 Creatinine [Mass/Vol] 1.76 mg/dL 0.55-1.02 [facility] Work Phone: Comment on above: The validity of the calculated GFR & GFRAA in patients over 70 years has not been determined. Clinical correlation is essential. Serum or plasma urea nitroge n measurement (mass/volume)on 09-17-2021 Urea nitrogen [Mass/Vol] 36 mg/dL 7-18 [facility] Work Phone: Thin prep Papanicolaou smear with manual screeningon 09-17-2021 Thin prep Papanicolaou smear with manual screening 6 5-15 [facility] Work Phone: Absolute lymphocyte counton 09-10-2021 Lymphocytes Auto (Unsp spec) [#/Vol] 1.89 10*3/uL 0.83-4.51 [facility] Work Phone: Basophil percentageon 2021 Basophil percentage 68 mg/dL 74-106 [facility] Work Phone: [phone] Basophil percentage 7.2 g/dL 6.4-8.2 [facility] Work Phone: Basophil percentage 0.30 mg/dL 0.20-1.00 [facility] Work Phone: [phone] Basophil percentage 140 mmol/L 136-145 [facility] Work Phone: Basophil percentage 4.0 mmol/L 3.5-5.1 [facility] Work Phone: Basophil percentage 105 mmol/L 98-107 [facility] Work Phone: [phone] Basophils (Bld) [#/Vol] 7.5 10*3/uL 4.4-11.0 [facility] Work Phone: Basophils (Bld) [#/Vol] 4.6 10*3/uL 2.0-7.7 [facility] Work Phone: Basophils/100 WBC (Bld) 61.4 % 47-70 [facility] Work Phone: Basophils/100 WBC (Bld) 5.4 % 0-5 [facility] Work Phone: Basophils/100 WBC (Bld) 0.4 % 0-1 [facility] Work Phone: Bilirubin [Mass/Vol] 0.30 mg/dL 0.20-1.00 [facility] Work Phone: Comment on above: For patients on eltr ombopag therapy, use of Dim[place] TBIL is not recommended. Chloride [Moles/Vol] 105 mmol/L 98-107 [facility] Work Phone: [phone] Eosinophils/100 WBC (Bld) 5.4 % 0-5 [facility] Work Phone: [phone] Glucose [Mass/Vol] 68 mg/dL 74-106 [facility] Work [facility]: [phone] Neutrophils (Bld) [#/Vol] 4.6 10*3/uL 2.0-7.7 [facility] Work Phone: [phone] Neutrophils/100 WBC (Bld) 61.4 % 47-70 [facility] Work Phone: [phone] Potassium [Moles/Vol] 4.0 mmol/L 3.5-5.1 [facility] Work Phone: [phone] Protein [Mass/Vol] 7.2 g/dL 6.4-8.2 [facility] Work [facility]: [phone] Sodium [Moles/Vol] 140 mmol/L 136-145 [facility] Work Phone: [phone] WBC (Bld) [#/Vol] 7.5 10*3/uL 4.4-11.0 [facility] Work Phone: Blood erythrocytes count (nu mber/volume)on 09-10-2021 RBC (Bld) [#/Vol] 3.84 10*6/uL 4.2-5.4 [facility] Work [facility]: Blood hemoglobin measurement (mass/volume)on 09-10-2021 Hemoglobin (Bld) [Mass/Vol] 10.2 g/dL 12.0-15.0 [facility] Work Phone: [phone] Blood lymphocytes/100 leukoc yteson 09-10-2021 Lymphocytes/100 WBC (Bld) 25.4 % 19-41 [facility] Work Phone: [phone] Blood monocytes/100 leukocyt eson 09-10-2021 Monocytes/100 WBC (Bld) 7.0 % 0-10 [facility] Work Phone: Blood platelet mean volumeon 09-10-2021 Platelet mean volume (Bld) [Entitic vol] 10.5 fL 6.2-12.0 [facility] Work Phone: Determination of erythrocyte mean corpuscular volume (MCV)on 09-10-2021 MCV (RBC) [Entitic vol] 87.8 fL 81-99 [facility] Work Phone: Hematocrit Auto (Bld) [Volum e fraction]on 09-10-2021 Hematocrit (Bld) [Volume fraction] 33.7 % 37-47 [facility] Work Phone: Laboratory - Chemistry and C hemistry - challengeon 09-10-2021 ALP [Catalytic activity/Vol] 68 U/L 45-117 [facility] Work Phone: ALT [Catalytic activity/Vol] 23 U/L 13-56 [facility] Work Phone: CO2 [Moles/Vol] 32.0 mmol/L 21.0-32.0 [facility] Work Phone: Globulin (S) [Mass/Vol] 3.8 g/dL 2.2-4.2 [facility] Work Phone: Urea nitrogen/Creatinine [Mass ratio] 23.5 mg/mg 10-20 [facility] Work Phone: Laboratory - Hematology and Cell countson 09-10-2021 Erythrocyte distribution width (RBC) [Entitic vol] 48.5 fL 35.1-43.9 [facility] Work Phone: Erythrocyte distribution width (RBC) [Ratio] 15.3 % 11.6-14.6 [facility] Work Phone: Immature granulocytes/100 WBC (Bld) 0.400 % 0.0-0.9 [facility] Work Phone: Comment on above: IG% - Immature Granu locytes (promyelocytes, myelocytes and metamyelocytes) > 1% indicates that a LEFT SHIFT is Present. MCH (RBC) [Entitic mass] 26.6 pg 27.0-32.0 [facility] Work Phone: Nucleated RBC/100 WBC (Bld) [Ratio] 0 % 0-5 [facility] Work Phone: MCHC Auto (RBC) [Mass/Vol]on 09-10-2021 MCHC (RBC) [Mass/Vol] 30.3 g/dL 32-36 [facility] Work Phone: No Panel Informationon 09-10 Estimated GFR (MDRD) Amer 51 mL/min >60 [facility] Work Phone: Comment on above: GFR Calc Estimated GFR (MDRD) Non-Af Amer 42 mL/min >60 [facility] Work Phone: Comment on above: Non- GFR Calc 26.6 pg 27.0-32.0 [facility] Work Phone: 15.3 % 11.6-14.6 [facility] Work Phone: 48.5 fl 35.1-43.9 [facility] Work Phone: 0.400 % 0.0-0.9 [facility] Work Phone: 0 % 0-5 [facility] Work Phone: 42 mL/min >60 [facility] Work Phone: 51 mL/min >60 [facility] Work Phone: 23.5 RATIO 10-20 [facility] Work Phone: 3.8 g/dL 2.2-4.2 [facility] Work Phone: 68 U/L 45-117 [facility] Work Phone: 23 U/L 13-56 [facility] Work Phone: 32.0 mmol/L 21.0-32.0 [facility] Work Phone: Platelets bldon 09-10-2021 Platelets (Bld) [#/Vol] 249 10*3/uL 150-450 [facility] Work Phone: Serum or plasma albumin keyona urement (mass/volume)on 09-10-2021 Albumin [Mass/Vol] 3.4 g/dL 3.2-5.0 [facility] Work Phone: Serum or plasma albumin/glob ulin mass ratioon 09-10-2021 Albumin/Globulin [Mass ratio] 0.9 {ratio} 0.9-2.4 [facility] Work Phone: Serum or plasma calcium keyona urement (mass/volume)on 09-10-2021 Calcium [Mass/Vol] 9.2 mg/dL 8.5-10.1 [facility] Work Phone: Serum or plasma creatinine m easurement (mass/volume)on 09-10-2021 Creatinine [Mass/Vol] 1.32 mg/dL 0.55-1.02 [facility] Work Phone: Comment on above: The validity of the calculated GFR & GFRAA in patients over 70 years has not been determined. Clinical correlation is essential. Serum or plasma urea nitroge n measurement (mass/volume)on 09-10-2021 Urea nitrogen [Mass/Vol] 31 mg/dL 7-18 [facility] Work Phone: Thin prep Papanicolaou smear with manual screeningon 09-10-2021 Thin prep Papanicolaou smear with manual screening 17 U/L 15-37 [facility] Work Phone: Thin prep Papanicolaou smear with manual screening 3 5-15 [facility] Work Phone: Absolute lymphocyte counton 09-03-2021 Lymphocytes Auto (Unsp spec) [#/Vol] 2.21 10*3/uL 0.83-4.51 [facility] Work Phone: Basophil percentageon 2021 Basophil percentage 72 mg/dL 74-106 [facility] Work Phone: Basophil percentage 7.4 g/dL 6.4-8.2 [facility] Work Phone: Basophil percentage 0.40 mg/dL 0.20-1.00 [facility] Work Phone: Basophil percentage 139 mmol/L 136-145 [facility] Work [facility]: Basophil percentage 4.1 mmol/L 3.5-5.1 [facility] Work Phone: Basophil percentage 104 mmol/L 98-107 [facility] Work Phone: Basophils (Bld) [#/Vol] 8.5 10*3/uL 4.4-11.0 [facility] Work Phone: Basophils (Bld) [#/Vol] 5.3 10*3/uL 2.0-7.7 [facility] Work Phone: Basophils/100 WBC (Bld) 63.1 % 47-70 [facility] Work Phone: Basophils/100 WBC (Bld) 4.4 % 0-5 [facility] Work Phone: Basophils/100 WBC (Bld) 0.5 % 0-1 [facility] Work Phone: [phone] Bilirubin [Mass/Vol] 0.40 mg/dL 0.20-1.00 [facility] Work Phone: Comment on above: For patients on eltr ombopag therapy, use of Dim[place] TBIL is not recommended. Chloride [Moles/Vol] 104 mmol/L 98-107 [facility] Work Phone: Eosinophils/100 WBC (Bld) 4.4 % 0-5 [facility] Work Phone: Glucose [Mass/Vol] 72 mg/dL 74-106 [facility] Work Phone: Neutrophils (Bld) [#/Vol] 5.3 10*3/uL 2.0-7.7 [facility] Work Phone: Neutrophils/100 WBC (Bld) 63.1 % 47-70 [facility] Work Phone: Potassium [Moles/Vol] 4.1 mmol/L 3.5-5.1 [facility] Work Phone: Protein [Mass/Vol] 7.4 g/dL 6.4-8.2 [facility] Work Phone: Sodium [Moles/Vol] 139 mmol/L 136-145 [facility] Work Phone: WBC (Bld) [#/Vol] 8.5 10*3/uL 4.4-11.0 [facility] Work Phone: Blood erythrocytes count (nu mber/volume)on 09-03-2021 RBC (Bld) [#/Vol] 4.00 10*6/uL 4.2-5.4 [facility] Work Phone: Blood hemoglobin measurement (mass/volume)on 09-03-2021 Hemoglobin (Bld) [Mass/Vol] 10.7 g/dL 12.0-15.0 [facility] Work Phone: Blood lymphocytes/100 leukoc yteson 09-03-2021 Lymphocytes/100 WBC (Bld) 26.2 % 19-41 [facility] Work Phone: Blood monocytes/100 leukocyt eson 09-03-2021 Monocytes/100 WBC (Bld) 5.4 % 0-10 [facility] Work Phone: Blood platelet mean volumeon 09-03-2021 Platelet mean volume (Bld) [Entitic vol] 10.6 fL 6.2-12.0 [facility] Work Phone: Determination of erythrocyte mean corpuscular volume (MCV)on 09-03-2021 MCV (RBC) [Entitic vol] 86.3 fL 81-99 [facility] Work Phone: Hematocrit Auto (Bld) [Volum e fraction]on 09-03-2021 Hematocrit (Bld) [Volume fraction] 34.5 % 37-47 [facility] Work Phone: Laboratory - Chemistry and C hemistry - challengeon 09-03-2021 ALP [Catalytic activity/Vol] 77 U/L 45-117 [facility] Work Phone: ALT [Catalytic activity/Vol] 24 U/L 13-56 [facility] Work Phone: CO2 [Moles/Vol] 29.0 mmol/L 21.0-32.0 [facility] Work Phone: Globulin (S) [Mass/Vol] 4.0 g/dL 2.2-4.2 [facility] Work Phone: Urea nitrogen/Creatinine [Mass ratio] 23.3 mg/mg 10-20 [facility] Work Phone: Laboratory - Hematology and Cell countson 09-03-2021 Erythrocyte distribution width (RBC) [Entitic vol] 48.1 fL 35.1-43.9 [facility] Work Phone: Erythrocyte distribution width (RBC) [Ratio] 15.0 % 11.6-14.6 [facility] Work Phone: Immature granulocytes/100 WBC (Bld) 0.400 % 0.0-0.9 [facility] Work Phone: Comment on above: IG% - Immature Granu locytes (promyelocytes, myelocytes and metamyelocytes) > 1% indicates that a LEFT SHIFT is Present. MCH (RBC) [Entitic mass] 26.8 pg 27.0-32.0 [facility] Work Phone: Nucleated RBC/100 WBC (Bld) [Ratio] 0 % 0-5 [facility] Work Phone: MCHC Auto (RBC) [Mass/Vol]on 09-03-2021 MCHC (RBC) [Mass/Vol] 31.0 g/dL 32-36 [facility] Work Phone: [phone] No Panel Informationon 09-03 Estimated GFR (MDRD) Amer 51 mL/min >60 [facility] Work Phone: [phone] Comment on above: GFR Calc Estimated GFR (MDRD) Non-Af Amer 42 mL/min >60 [facility] Work Phone: [phone] Comment on above: Non- GFR Calc 26.8 pg 27.0-32.0 [facility] Work Phone: [phone] 15.0 % 11.6-14.6 [facility] Work Phone: [phone] 48.1 fl 35.1-43.9 [facility] Work Phone: [phone] 0.400 % 0.0-0.9 [facility] Work Phone: [phone] 0 % 0-5 [facility] Work Phone: [phone] 42 mL/min >60 [facility] Work Phone: [phone] 51 mL/min >60 [facility] Work Phone: [phone] 23.3 RATIO 10-20 [facility] Work Phone: 4.0 g/dL 2.2-4.2 [facility] Work Phone: [phone] 77 U/L 45-117 [facility] Work Phone: 24 U/L 13-56 [facility] Work Phone: 29.0 mmol/L 21.0-32.0 [facility] Work Phone: Platelets bldon 09-03-2021 Platelets (Bld) [#/Vol] 253 10*3/uL 150-450 [facility] Work Phone: [phone] Serum or plasma albumin keyona urement (mass/volume)on 09-03-2021 Albumin [Mass/Vol] 3.4 g/dL 3.2-5.0 [facility] Work Phone: Serum or plasma albumin/glob ulin mass ratioon 09-03-2021 Albumin/Globulin [Mass ratio] 0.8 {ratio} 0.9-2.4 [facility] Work Phone: Serum or plasma calcium keyona urement (mass/volume)on 09-03-2021 Calcium [Mass/Vol] 9.2 mg/dL 8.5-10.1 [facility] Work Phone: Serum or plasma creatinine m easurement (mass/volume)on 09-03-2021 Creatinine [Mass/Vol] 1.33 mg/dL 0.55-1.02 [facility] Work Phone: Comment on above: The validity of the calculated GFR & GFRAA in patients over 70 years has not been determined. Clinical correlation is essential. Serum or plasma urea nitroge n measurement (mass/volume)on 09-03-2021 Urea nitrogen [Mass/Vol] 31 mg/dL 7-18 [facility] Work Phone: Thin prep Papanicolaou smear with manual screeningon 09-03-2021 Thin prep Papanicolaou smear with manual screening 20 U/L 15-37 [facility] Work Phone: Thin prep Papanicolaou smear with manual screening 6 5-15 [facility] Work Phone: Absolute lymphocyte counton 08-27-2021 Lymphocytes Auto (Unsp spec) [#/Vol] 2.03 10*3/uL 0.83-4.51 [facility] Work Phone: Basophil percentageon 2021 Basophil percentage 75 mg/dL 74-106 [facility] Work Phone: Basophil percentage 6.9 g/dL 6.4-8.2 [facility] Work Phone: Basophil percentage 0.20 mg/dL 0.20-1.00 [facility] Work Phone: Basophil percentage 138 mmol/L 136-145 [facility] Work Phone: Basophil percentage 4.1 mmol/L 3.5-5.1 [facility] Work Phone: Basophil percentage 106 mmol/L 98-107 [facility] Work Phone: Basophils (Bld) [#/Vol] 8.1 10*3/uL 4.4-11.0 [facility] Work Phone: Basophils (Bld) [#/Vol] 5.1 10*3/uL 2.0-7.7 [facility] Work Phone: Basophils/100 WBC (Bld) 63.0 % 47-70 [facility] Work Phone: [phone] Basophils/100 WBC (Bld) 4.4 % 0-5 [facility] Work Phone: [phone] Basophils/100 WBC (Bld) 0.5 % 0-1 [facility] Work Phone: [phone] Bilirubin [Mass/Vol] 0.20 mg/dL 0.20-1.00 [facility] Work Phone: [phone] Comment on above: For patients on eltr ombopag therapy, use of Dim[place] TBIL is not recommended. Chloride [Moles/Vol] 106 mmol/L 98-107 [facility] Work Phone: Eosinophils/100 WBC (Bld) 4.4 % 0-5 [facility] Work Phone: Glucose [Mass/Vol] 75 mg/dL 74-106 [facility] Work Phone: Neutrophils (Bld) [#/Vol] 5.1 10*3/uL 2.0-7.7 [facility] Work Phone: Neutrophils/100 WBC (Bld) 63.0 % 47-70 [facility] Work Phone: Potassium [Moles/Vol] 4.1 mmol/L 3.5-5.1 [facility] Work [facility]: Protein [Mass/Vol] 6.9 g/dL 6.4-8.2 [facility] Work Phone: Sodium [Moles/Vol] 138 mmol/L 136-145 [facility] Work Phone: WBC (Bld) [#/Vol] 8.1 10*3/uL 4.4-11.0 [facility] Work Phone: Blood erythrocytes count (nu mber/volume)on 08-27-2021 RBC (Bld) [#/Vol] 3.53 10*6/uL 4.2-5.4 [facility] Work Phone: Blood hemoglobin measurement (mass/volume)on 08-27-2021 Hemoglobin (Bld) [Mass/Vol] 9.4 g/dL 12.0-15.0 [facility] Work Phone: Blood lymphocytes/100 leukoc yteson 08-27-2021 Lymphocytes/100 WBC (Bld) 25.1 % 19-41 [facility] Work Phone: Blood monocytes/100 leukocyt eson 08-27-2021 Monocytes/100 WBC (Bld) 6.5 % 0-10 [facility] Work Phone: Blood platelet mean volumeon 08-27-2021 Platelet mean volume (Bld) [Entitic vol] 10.2 fL 6.2-12.0 [facility] Work Phone: Determination of erythrocyte mean corpuscular volume (MCV)on 08-27-2021 MCV (RBC) [Entitic vol] 85.3 fL 81-99 [facility] Work Phone: Hematocrit Auto (Bld) [Volum e fraction]on 08-27-2021 Hematocrit (Bld) [Volume fraction] 30.1 % 37-47 [facility] Work Phone: Laboratory - Chemistry and C hemistry - challengeon 08-27-2021 ALP [Catalytic activity/Vol] 76 U/L 45-117 [facility] Work Phone: ALT [Catalytic activity/Vol] 24 U/L 13-56 [facility] Work Phone: CO2 [Moles/Vol] 28.0 mmol/L 21.0-32.0 [facility] Work Phone: Globulin (S) [Mass/Vol] 3.8 g/dL 2.2-4.2 [facility] Work Phone: Urea nitrogen/Creatinine [Mass ratio] 27.0 mg/mg 10-20 [facility] Work Phone: Laboratory - Hematology and Cell countson 08-27-2021 Erythrocyte distribution width (RBC) [Entitic vol] 48.4 fL 35.1-43.9 [facility] Work Phone: Erythrocyte distribution width (RBC) [Ratio] 15.6 % 11.6-14.6 [facility] Work Phone: Immature granulocytes/100 WBC (Bld) 0.500 % 0.0-0.9 [facility] Work Phone: Comment on above: IG% - Immature Granu locytes (promyelocytes, myelocytes and metamyelocytes) > 1% indicates that a LEFT SHIFT is Present. MCH (RBC) [Entitic mass] 26.6 pg 27.0-32.0 [facility] Work Phone: Nucleated RBC/100 WBC (Bld) [Ratio] 0 % 0-5 [facility] Work Phone: MCHC Auto (RBC) [Mass/Vol]on 08-27-2021 MCHC (RBC) [Mass/Vol] 31.2 g/dL 32-36 [facility] Work [facility]: No Panel Informationon 08-27 Estimated GFR (MDRD) Amer 45 mL/min >60 [facility] Work Phone: Comment on above: GFR Calc Estimated GFR (MDRD) Non-Af Amer 37 mL/min >60 [facility] Work Phone: [phone] Comment on above: Non- GFR Calc 26.6 pg 27.0-32.0 [facility] Work Phone: 15.6 % 11.6-14.6 [facility] Work Phone: [phone] 48.4 fl 35.1-43.9 [facility] Work Phone: 0.500 % 0.0-0.9 [facility] Work Phone: [phone] 0 % 0-5 [facility] Work Phone: [phone] 37 mL/min >60 [facility] Work Phone: [phone] 45 mL/min >60 [facility] Work Phone: [phone] 27.0 RATIO 10-20 [facility] Work Phone: [phone] 3.8 g/dL 2.2-4.2 [facility] Work Phone: [phone] 76 U/L 45-117 [facility] Work Phone: [phone] 24 U/L 13-56 [facility] Work Phone: [phone] 28.0 mmol/L 21.0-32.0 [facility] Work Phone: [phone] Platelets bldon 08-27-2021 Platelets (Bld) [#/Vol] 233 10*3/uL 150-450 [facility] Work Phone: [phone] Serum or plasma albumin keyona urement (mass/volume)on 08-27-2021 Albumin [Mass/Vol] 3.1 g/dL 3.2-5.0 [facility] Work Phone: [phone] Serum or plasma albumin/glob ulin mass ratioon 08-27-2021 Albumin/Globulin [Mass ratio] 0.8 {ratio} 0.9-2.4 [facility] Work Phone: [phone] Serum or plasma calcium keyona urement (mass/volume)on 08-27-2021 Calcium [Mass/Vol] 9.0 mg/dL 8.5-10.1 [facility] Work Phone: Serum or plasma creatinine m easurement (mass/volume)on 08-27-2021 Creatinine [Mass/Vol] 1.48 mg/dL 0.55-1.02 [facility] Work Phone: Comment on above: The validity of the calculated GFR & GFRAA in patients over 70 years has not been determined. Clinical correlation is essential. Serum or plasma urea nitroge n measurement (mass/volume)on 08-27-2021 Urea nitrogen [Mass/Vol] 40 mg/dL 7-18 [facility] Work Phone: Thin prep Papanicolaou smear with manual screeningon 08-27-2021 Thin prep Papanicolaou smear with manual screening 18 U/L 15-37 [facility] Work Phone: Thin prep Papanicolaou smear with manual screening 4 5-15 [facility] Work Phone: Absolute lymphocyte counton 08-22-2021 Lymphocytes Auto (Unsp spec) [#/Vol] 1.58 10*3/uL 0.83-4.51 [facility] Work Phone: [phone] Basophil percentageon 2021 Basophil percentage 146 mg/dL 74-106 [facility] Work Phone: Basophil percentage 136 mmol/L 136-145 [facility] Work Phone: Basophil percentage 3.8 mmol/L 3.5-5.1 [facility] Work Phone: Basophil percentage 107 mmol/L 98-107 [facility] Work Phone: Basophils (Bld) [#/Vol] 6.9 10*3/uL 4.4-11.0 [facility] Work Phone: Basophils (Bld) [#/Vol] 4.5 10*3/uL 2.0-7.7 [facility] Work Phone: [phone] Basophils/100 WBC (Bld) 65.5 % 47-70 [facility] Work Phone: [phone] Basophils/100 WBC (Bld) 4.8 % 0-5 [facility] Work Phone: [phone] Basophils/100 WBC (Bld) 0.3 % 0-1 [facility] Work Phone: [phone] Chloride [Moles/Vol] 107 mmol/L 98-107 [facility] Work Phone: [phone] Eosinophils/100 WBC (Bld) 4.8 % 0-5 [facility] Work Phone: [phone] Glucose [Mass/Vol] 146 mg/dL 74-106 [facility] Work Phone: Comment on above: Fasting Glucose resu lt greater than or equal to 126 mg/dL suggests DIABETES MELLITUS per A.D.A. criteria. Neutrophils (Bld) [#/Vol] 4.5 10*3/uL 2.0-7.7 [facility] Work Phone: [phone] Neutrophils/100 WBC (Bld) 65.5 % 47-70 [facility] Work Phone: [phone] Potassium [Moles/Vol] 3.8 mmol/L 3.5-5.1 [facility] Work Phone: Sodium [Moles/Vol] 136 mmol/L 136-145 [facility] Work Phone: [phone] WBC (Bld) [#/Vol] 6.9 10*3/uL 4.4-11.0 [facility] Work Phone: Blood erythrocytes count (nu mber/volume)on 08-22-2021 RBC (Bld) [#/Vol] 3.76 10*6/uL 4.2-5.4 [facility] Work Phone: Blood hemoglobin measurement (mass/volume)on 08-22-2021 Hemoglobin (Bld) [Mass/Vol] 10.2 g/dL 12.0-15.0 [facility] Work Phone: Blood lymphocytes/100 leukoc yteson 08-22-2021 Lymphocytes/100 WBC (Bld) 22.9 % 19-41 [facility] Work Phone: Blood monocytes/100 leukocyt eson 08-22-2021 Monocytes/100 WBC (Bld) 6.2 % 0-10 [facility] Work Phone: Blood platelet mean volumeon 08-22-2021 Platelet mean volume (Bld) [Entitic vol] 9.9 fL 6.2-12.0 [facility] Work Phone: Determination of erythrocyte mean corpuscular volume (MCV)on 08-22-2021 MCV (RBC) [Entitic vol] 83.8 fL 81-99 [facility] Work Phone: Hematocrit Auto (Bld) [Volum e fraction]on 08-22-2021 Hematocrit (Bld) [Volume fraction] 31.5 % 37-47 [facility] Work Phone: Laboratory - Chemistry and C hemistry - challengeon 08-22-2021 CO2 [Moles/Vol] 24.0 mmol/L 21.0-32.0 [facility] Work Phone: Urea nitrogen/Creatinine [Mass ratio] 19.2 mg/mg 10-20 [facility] Work Phone: Laboratory - Hematology and Cell countson 08-22-2021 Erythrocyte distribution width (RBC) [Entitic vol] 45.2 fL 35.1-43.9 [facility] Work Phone: Erythrocyte distribution width (RBC) [Ratio] 14.9 % 11.6-14.6 [facility] Work Phone: Immature granulocytes/100 WBC (Bld) 0.300 % 0.0-0.9 [facility] Work Phone: Comment on above: IG% - Immature Granu locytes (promyelocytes, myelocytes and metamyelocytes) > 1% indicates that a LEFT SHIFT is Present. MCH (RBC) [Entitic mass] 27.1 pg 27.0-32.0 [facility] Work Phone: Nucleated RBC/100 WBC (Bld) [Ratio] 0 % 0-5 [facility] Work Phone: MCHC Auto (RBC) [Mass/Vol]on 08-22-2021 MCHC (RBC) [Mass/Vol] 32.4 g/dL 32-36 [facility] Work Phone: No Panel Informationon 08-22 Estimated Creatinine Clearance Calc 38.52 ml/min [facility] Work Phone: Estimated GFR (MDRD) Amer 68 mL/min >60 [facility] Work Phone: Comment on above: GFR Calc Estimated GFR (MDRD) Non-Af Amer 56 mL/min >60 [facility] Work Phone: [phone] Comment on above: Non- GFR Calc 27.1 pg 27.0-32.0 [facility] Work Phone: [phone] 14.9 % 11.6-14.6 [facility] Work Phone: [phone] 45.2 fl 35.1-43.9 [facility] Work Phone: 0.300 % 0.0-0.9 [facility] Work Phone: 0 % 0-5 [facility] Work Phone: 56 mL/min >60 [facility] Work Phone: [phone] 68 mL/min >60 [facility] Work Phone: [phone] 38.52 ml/min [facility] Work Phone: [phone] 19.2 RATIO 10-20 [facility] Work Phone: [phone] 24.0 mmol/L 21.0-32.0 [facility] Work Phone: Platelets bldon 08-22-2021 Platelets (Bld) [#/Vol] 229 10*3/uL 150-450 [facility] Work Phone: Serum or plasma calcium keyona urement (mass/volume)on 08-22-2021 Calcium [Mass/Vol] 9.1 mg/dL 8.5-10.1 [facility] Work Phone: Serum or plasma creatinine m easurement (mass/volume)on 08-22-2021 Creatinine [Mass/Vol] 1.04 mg/dL 0.55-1.02 [facility] Work Phone: Comment on above: The validity of the calculated GFR & GFRAA in patients over 70 years has not been determined. Clinical correlation is essential. Serum or plasma urea nitroge n measurement (mass/volume)on 08-22-2021 Urea nitrogen [Mass/Vol] 20 mg/dL 7-18 [facility] Work Phone: Thin prep Papanicolaou smear with manual screeningon 08-22-2021 Thin prep Papanicolaou smear with manual screening 5 5-15 [facility] Work Phone: Whole blood hemoglobin A1c/t otal hemoglobin ratio (mass fraction)on 08-22-2021 HbA1c (Bld) [Mass fraction] 6.2 % 3.8-5.6 [facility] Work Phone: Comment on above: Normal < 5.7 % Predi abetic 5.7 - 6.4 % Diabetic >or= 6.5 % Please note range changes. Absolute lymphocyte counton 08-21-2021 Lymphocytes Auto (Unsp spec) [#/Vol] 1.87 10*3/uL 0.83-4.51 [facility] Work Phone: Basophil percentageon 2021 Basophil percentage 0-5 SEEN /hpf 0-5 [facility] Work Phone: Basophil percentage 71 mg/dL 74-106 [facility] Work Phone: Basophil percentage 7.7 g/dL 6.4-8.2 [facility] Work Phone: [phone] Basophil percentage 0.40 mg/dL 0.20-1.00 [facility] Work Phone: [phone] Basophil percentage 139 mmol/L 136-145 [facility] Work Phone: [phone] Basophil percentage 4.2 mmol/L 3.5-5.1 [facility] Work Phone: [phone] Basophil percentage 106 mmol/L 98-107 [facility] Work Phone: [phone] Basophils (Bld) [#/Vol] 8.1 10*3/uL 4.4-11.0 [facility] Work Phone: [phone] Basophils (Bld) [#/Vol] 5.2 10*3/uL 2.0-7.7 [facility] Work Phone: [phone] Basophils/100 WBC (Bld) 64.3 % 47-70 [facility] Work Phone: [phone] Basophils/100 WBC (Bld) 4.2 % 0-5 [facility] Work Phone: Basophils/100 WBC (Bld) 0.5 % 0-1 [facility] Work Phone: Bilirubin [Mass/Vol] 0.40 mg/dL 0.20-1.00 [facility] Work Phone: Comment on above: For patients on eltr ombopag therapy, use of Dimension [place] TBIL is not recommended. Protein [Mass/Vol] 7.7 g/dL 6.4-8.2 [facility] Work Phone: Bilirubin Test strip Ql (U)o n 08-21-2021 Bilirubin Ql (U) Negative Negative [facility] Work Phone: Blood erythrocytes count (nu mber/volume)on 08-21-2021 RBC (Bld) [#/Vol] 3.95 10*6/uL 4.2-5.4 [facility] Work Phone: Blood hemoglobin measurement (mass/volume)on 08-21-2021 Hemoglobin (Bld) [Mass/Vol] 10.6 g/dL 12.0-15.0 [facility] Work Phone: Blood lymphocytes/100 leukoc yteson 08-21-2021 Lymphocytes/100 WBC (Bld) 23.2 % 19-41 [facility] Work Phone: Blood monocytes/100 leukocyt eson 08-21-2021 Monocytes/100 WBC (Bld) 7.4 % 0-10 [facility] Work Phone: Blood platelet mean volumeon 08-21-2021 Platelet mean volume (Bld) [Entitic vol] 10.0 fL 6.2-12.0 [facility] Work Phone: Determination of erythrocyte mean corpuscular volume (MCV)on 08-21-2021 MCV (RBC) [Entitic vol] 84.8 fL 81-99 [facility] Work Phone: Glucose Glucometer (BldC) [M ass/Vol]on 08-21-2021 Glucose [Mass/Vol] 148 mg/dL 74-106 [facility] Work Phone: Comment on above: MANAGEMENT OF PATIEN T CARE PER NURSING PROTOCOL Hematocrit Auto (Bld) [Volum e fraction]on 08-21-2021 Hematocrit (Bld) [Volume fraction] 33.5 % 37-47 [facility] Work Phone: Ketones Test strip Ql (U)on 08-21-2021 Ketones Ql (U) Negative Negative [facility] Work Phone: Laboratory - Chemistry and C hemistry - challengeon 08-21-2021 ALP [Catalytic activity/Vol] 87 U/L 45-117 [facility] Work Phone: ALT [Catalytic activity/Vol] 25 U/L 13-56 [facility] Work Phone: Globulin (S) [Mass/Vol] 4.3 g/dL 2.2-4.2 [facility] Work Phone: Lower GI hemoglobin IA Ql (S tl)on 08-21-2021 Stool Occult Blood (LATISHA) Positive [facility] Work Phone: Stool gastrointestinal hemoglobin detection by immunologic method Positive [facility] Work Phone: MCHC Auto (RBC) [Mass/Vol]on 08-21-2021 MCHC (RBC) [Mass/Vol] 31.6 g/dL 32-36 [facility] Work Phone: Mucus LM Ql (Urine sed)on Mucus Ql (Urine sed) 0 SEEN /hpf [facility] Work Phone: Nitrite Test strip Ql (U)on 08-21-2021 Nitrite Ql (U) Positive Negative [facility] Work Phone: No Panel Informationon 08-21 26.8 pg 27.0-32.0 [facility] Work Phone: 15.0 % 11.6-14.6 [facility] Work Phone: 46.4 fl 35.1-43.9 [facility] Work Phone: 0.400 % 0.0-0.9 [facility] Work Phone: 0 % 0-5 [facility] Work Phone: 43 mL/min >60 [facility] Work Phone: 52 mL/min >60 [facility] Work Phone: 33.79 ml/min [facility] Work Phone: 22.3 RATIO 10-20 [facility] Work Phone: [phone] 4.3 g/dL 2.2-4.2 [facility] Work Phone: 87 U/L 45-117 [facility] Work Phone: 25 U/L 13-56 [facility] Work Phone: 31.0 mmol/L 21.0-32.0 [facility] Work Phone: Platelets bldon 08-21-2021 Platelets (Bld) [#/Vol] 287 10*3/uL 150-450 [facility] Work Phone: Protein Test strip Ql (U)on 08-21-2021 Protein Ql (U) Negative Negative [facility] Work Phone: Serum or plasma albumin keyona urement (mass/volume)on 08-21-2021 Albumin [Mass/Vol] 3.4 g/dL 3.2-5.0 [facility] Work Phone: Serum or plasma albumin/glob ulin mass ratioon 08-21-2021 Albumin/Globulin [Mass ratio] 0.8 {ratio} 0.9-2.4 [facility] Work Phone: Serum or plasma calcium keyona urement (mass/volume)on 08-21-2021 Calcium [Mass/Vol] 9.4 mg/dL 8.5-10.1 [facility] Work Phone: Serum or plasma creatinine m easurement (mass/volume)on 08-21-2021 Creatinine [Mass/Vol] 1.30 mg/dL 0.55-1.02 [facility] Work Phone: Serum or plasma urea nitroge n measurement (mass/volume)on 08-21-2021 Urea nitrogen [Mass/Vol] 29 mg/dL 7-18 [facility] Work Phone: Squamous epithelial cells de tection in urine sediment by light microscopyon 08-21-2021 Epithelial cells.squamous LM Ql (Urine sed) 0-5 SEEN /hpf 5-10 [facility] Work Phone: Thin prep Papanicolaou smear with manual screeningon 08-21-2021 Thin prep Papanicolaou smear with manual screening 18 U/L 15-37 [facility] Work Phone: Thin prep Papanicolaou smear with manual screening 2 5-15 [facility] Work Phone: Urine blood detectionon - RBC Ql (U) Negative Negative [facility] Work Phone: RBC Ql (U) 0 SEEN /hpf 0-5 [facility] Work Phone: Urine clarityon 08-21-2021 Clarity (U) Sl. Cloudy Clear [facility] Work Phone: Urine color determinationon 08-21-2021 Color (U) Yellow Yellow [facility] Work Phone: Urine glucose detectionon Glucose Ql (U) Normal mg/dl Normal [facility] Work Phone: Urine leukocyte esterase det ection by dipstickon 08-21-2021 Leukocyte esterase Test strip Ql (U) 500 /ul Negative [facility] Work Phone: Urine pHon 08-21-2021 pH (U) 8.0 [pH] 5.0 - 8.0 [facility] Work Phone: Urine sediment bacteria coun t by microscopy (number/high power field)on 08-21-2021 Bacteria LM.HPF (Urine sed) [#/Area] RARE /hpf None Seen [facility] Work Phone: Urine specific gravity measu rementon 08-21-2021 Specific gravity (U) [Rel density] 1.010 1.002-1.030 [facility] Work Phone: Urobilinogen Auto test strip Ql (U)on 08-21-2021 Urobilinogen Ql (U) Normal mg/dl Normal [facility] Work Phone: Absolute lymphocyte counton 08-13-2021 Lymphocytes Auto (Unsp spec) [#/Vol] 1.95 10*3/uL 0.83-4.51 [facility] Work Phone: Basophil percentageon 2021 Basophil percentage 80 mg/dL 74-106 [facility] Work Phone: Basophil percentage 139 mmol/L 136-145 [facility] Work Phone: Basophil percentage 4.1 mmol/L 3.5-5.1 [facility] Work Phone: Basophil percentage 106 mmol/L 98-107 [facility] Work Phone: Basophils (Bld) [#/Vol] 7.0 10*3/uL 4.4-11.0 [facility] Work Phone: Basophils (Bld) [#/Vol] 4.2 10*3/uL 2.0-7.7 [facility] Work Phone: Basophils/100 WBC (Bld) 0.4 % 0-1 [facility] Work Phone: Basophils/100 WBC (Bld) 60.0 % 47-70 [facility] Work Phone: Basophils/100 WBC (Bld) 4.2 % 0-5 [facility] Work Phone: Chloride [Moles/Vol] 106 mmol/L 98-107 [facility] Work Phone: Eosinophils/100 WBC (Bld) 4.2 % 0-5 [facility] Work Phone: Glucose [Mass/Vol] 80 mg/dL 74-106 [facility] Work Phone: Neutrophils (Bld) [#/Vol] 4.2 10*3/uL 2.0-7.7 [facility] Work Phone: Neutrophils/100 WBC (Bld) 60.0 % 47-70 [facility] Work Phone: Potassium [Moles/Vol] 4.1 mmol/L 3.5-5.1 [facility] Work [facility]: Sodium [Moles/Vol] 139 mmol/L 136-145 [facility] Work Phone: WBC (Bld) [#/Vol] 7.0 10*3/uL 4.4-11.0 [facility] Work Phone: Blood erythrocytes count (nu mber/volume)on 08-13-2021 RBC (Bld) [#/Vol] 3.72 10*6/uL 4.2-5.4 [facility] Work Phone: Blood hemoglobin measurement (mass/volume)on 08-13-2021 Hemoglobin (Bld) [Mass/Vol] 10.4 g/dL 12.0-15.0 [facility] Work Phone: Blood lymphocytes/100 leukoc yteson 08-13-2021 Lymphocytes/100 WBC (Bld) 28.0 % 19-41 [facility] Work Phone: Blood monocytes/100 leukocyt eson 08-13-2021 Monocytes/100 WBC (Bld) 6.8 % 0-10 [facility] Work Phone: Blood platelet mean volumeon 08-13-2021 Platelet mean volume (Bld) [Entitic vol] 10.6 fL 6.2-12.0 [facility] Work Phone: Determination of erythrocyte mean corpuscular volume (MCV)on 08-13-2021 MCV (RBC) [Entitic vol] 86.6 fL 81-99 [facility] Work Phone: Hematocrit Auto (Bld) [Volum e fraction]on 08-13-2021 Hematocrit (Bld) [Volume fraction] 32.2 % 37-47 [facility] Work Phone: Laboratory - Chemistry and C hemistry - challengeon 08-13-2021 CO2 [Moles/Vol] 29.0 mmol/L 21.0-32.0 [facility] Work Phone: Urea nitrogen/Creatinine [Mass ratio] 29.0 mg/mg 10-20 [facility] Work Phone: Laboratory - Hematology and Cell countson 08-13-2021 Erythrocyte distribution width (RBC) [Entitic vol] 47.3 fL 35.1-43.9 [facility] Work Phone: Erythrocyte distribution width (RBC) [Ratio] 14.9 % 11.6-14.6 [facility] Work Phone: Immature granulocytes/100 WBC (Bld) 0.600 % 0.0-0.9 [facility] Work Phone: Comment on above: IG% - Immature Granu locytes (promyelocytes, myelocytes and metamyelocytes) > 1% indicates that a LEFT SHIFT is Present. MCH (RBC) [Entitic mass] 28.0 pg 27.0-32.0 [facility] Work Phone: Nucleated RBC/100 WBC (Bld) [Ratio] 0 % 0-5 [facility] Work Phone: MCHC Auto (RBC) [Mass/Vol]on 08-13-2021 MCHC (RBC) [Mass/Vol] 32.3 g/dL 32-36 [facility] Work Phone: No Panel Informationon 08-13 Estimated GFR (MDRD) Amer 52 mL/min >60 [facility] Work Phone: Comment on above: GFR Calc Estimated GFR (MDRD) Non-Af Amer 43 mL/min >60 [facility] Work Phone: Comment on above: Non- GFR Calc 28.0 pg 27.0-32.0 [facility] Work Phone: 14.9 % 11.6-14.6 [facility] Work Phone: 47.3 fl 35.1-43.9 [facility] Work Phone: 0.600 % 0.0-0.9 [facility] Work Phone: 0 % 0-5 [facility] Work Phone: 43 mL/min >60 [facility] Work Phone: 52 mL/min >60 [facility] Work Phone: 29.0 RATIO 10-20 [facility] Work Phone: 29.0 mmol/L 21.0-32.0 [facility] Work Phone: Platelets bldon 08-13-2021 Platelets (Bld) [#/Vol] 246 10*3/uL 150-450 [facility] Work Phone: Serum or plasma calcium keyona urement (mass/volume)on 08-13-2021 Calcium [Mass/Vol] 9.7 mg/dL 8.5-10.1 [facility] Work Phone: Serum or plasma creatinine m easurement (mass/volume)on 08-13-2021 Creatinine [Mass/Vol] 1.31 mg/dL 0.55-1.02 [facility] Work Phone: Comment on above: The validity of the calculated GFR & GFRAA in patients over 70 years has not been determined. Clinical correlation is essential. Serum or plasma urea nitroge n measurement (mass/volume)on 08-13-2021 Urea nitrogen [Mass/Vol] 38 mg/dL 7-18 [facility] Work Phone: Thin prep Papanicolaou smear with manual screeningon 08-13-2021 Thin prep Papanicolaou smear with manual screening 4 5-15 [facility] Work Phone: Absolute lymphocyte counton 08-06-2021 Lymphocytes Auto (Unsp spec) [#/Vol] 1.92 10*3/uL 0.83-4.51 [facility] Work Phone: Basophil percentageon 2021 Basophil percentage 102 mg/dL 74-106 [facility] Work Phone: Basophil percentage 138 mmol/L 136-145 [facility] Work Phone: Basophil percentage 4.1 mmol/L 3.5-5.1 [facility] Work Phone: Basophil percentage 106 mmol/L 98-107 [facility] Work Phone: Basophils (Bld) [#/Vol] 8.2 10*3/uL 4.4-11.0 [facility] Work Phone: Basophils (Bld) [#/Vol] 5.3 10*3/uL 2.0-7.7 [facility] Work Phone: Basophils/100 WBC (Bld) 0.5 % 0-1 [facility] Work Phone: Basophils/100 WBC (Bld) 64.7 % 47-70 [facility] Work Phone: Basophils/100 WBC (Bld) 4.3 % 0-5 [facility] Work Phone: Chloride [Moles/Vol] 106 mmol/L 98-107 [facility] Work Phone: Eosinophils/100 WBC (Bld) 4.3 % 0-5 [facility] Work Phone: Glucose [Mass/Vol] 102 mg/dL 74-106 [facility] Work Phone: Comment on above: Fasting Glucose resu lt from 100 to 125 mg/dL suggests IMPAIRED HOMEOSTASIS per A.D.A. criteria. Neutrophils (Bld) [#/Vol] 5.3 10*3/uL 2.0-7.7 [facility] Work Phone: Neutrophils/100 WBC (Bld) 64.7 % 47-70 [facility] Work Phone: Potassium [Moles/Vol] 4.1 mmol/L 3.5-5.1 [facility] Work Phone: Sodium [Moles/Vol] 138 mmol/L 136-145 [facility] Work Phone: WBC (Bld) [#/Vol] 8.2 10*3/uL 4.4-11.0 [facility] Work Phone: Blood erythrocytes count (nu mber/volume)on 08-06-2021 RBC (Bld) [#/Vol] 3.89 10*6/uL 4.2-5.4 [facility] Work Phone: Blood hemoglobin measurement (mass/volume)on 08-06-2021 Hemoglobin (Bld) [Mass/Vol] 10.4 g/dL 12.0-15.0 [facility] Work Phone: Blood lymphocytes/100 leukoc yteson 08-06-2021 Lymphocytes/100 WBC (Bld) 23.4 % 19-41 [facility] Work Phone: Blood monocytes/100 leukocyt eson 08-06-2021 Monocytes/100 WBC (Bld) 6.6 % 0-10 [facility] Work Phone: Blood platelet mean volumeon 08-06-2021 Platelet mean volume (Bld) [Entitic vol] 10.2 fL 6.2-12.0 [facility] Work Phone: Determination of erythrocyte mean corpuscular volume (MCV)on 08-06-2021 MCV (RBC) [Entitic vol] 87.7 fL 81-99 [facility] Work Phone: Hematocrit Auto (Bld) [Volum e fraction]on 08-06-2021 Hematocrit (Bld) [Volume fraction] 34.1 % 37-47 [facility] Work Phone: Laboratory - Chemistry and C hemistry - challengeon 08-06-2021 CO2 [Moles/Vol] 27.0 mmol/L 21.0-32.0 [facility] Work Phone: Urea nitrogen/Creatinine [Mass ratio] 19.4 mg/mg 10-20 [facility] Work Phone: Laboratory - Hematology and Cell countson 08-06-2021 Erythrocyte distribution width (RBC) [Entitic vol] 48.5 fL 35.1-43.9 [facility] Work Phone: Erythrocyte distribution width (RBC) [Ratio] 15.2 % 11.6-14.6 [facility] Work Phone: Immature granulocytes/100 WBC (Bld) 0.500 % 0.0-0.9 [facility] Work Phone: Comment on above: IG% - Immature Granu locytes (promyelocytes, myelocytes and metamyelocytes) > 1% indicates that a LEFT SHIFT is Present. MCH (RBC) [Entitic mass] 26.7 pg 27.0-32.0 [facility] Work Phone: Nucleated RBC/100 WBC (Bld) [Ratio] 0 % 0-5 [facility] Work Phone: MCHC Auto (RBC) [Mass/Vol]on 08-06-2021 MCHC (RBC) [Mass/Vol] 30.5 g/dL 32-36 [facility] Work Phone: No Panel Informationon 08-06 Estimated GFR (MDRD) Amer 50 mL/min >60 [facility] Work Phone: Comment on above: GFR Calc Estimated GFR (MDRD) Non-Af Amer 42 mL/min >60 [facility] Work Phone: Comment on above: Non- GFR Calc 26.7 pg 27.0-32.0 [facility] Work Phone: 15.2 % 11.6-14.6 [facility] Work Phone: 48.5 fl 35.1-43.9 [facility] Work Phone: 0.500 % 0.0-0.9 [facility] Work Phone: 0 % 0-5 [facility] [facility] Work Phone: 42 mL/min >60 [facility] Work Phone: 50 mL/min >60 [facility] Work Phone: 19.4 RATIO 10-20 [facility] Work Phone: 27.0 mmol/L 21.0-32.0 [facility] Work Phone: Platelets bldon 08-06-2021 Platelets (Bld) [#/Vol] 253 10*3/uL 150-450 [facility] Work Phone: Serum or plasma calcium keyona urement (mass/volume)on 08-06-2021 Calcium [Mass/Vol] 9.9 mg/dL 8.5-10.1 [facility] Work Phone: Serum or plasma creatinine m easurement (mass/volume)on 08-06-2021 Creatinine [Mass/Vol] 1.34 mg/dL 0.55-1.02 [facility] Work Phone: Comment on above: The validity of the calculated GFR & GFRAA in patients over 70 years has not been determined. Clinical correlation is essential. Serum or plasma urea nitroge n measurement (mass/volume)on 08-06-2021 Urea nitrogen [Mass/Vol] 26 mg/dL 7-18 [facility] Work Phone: Thin prep Papanicolaou smear with manual screeningon 08-06-2021 Thin prep Papanicolaou smear with manual screening 5 5-15 [facility] Work Phone: Absolute lymphocyte counton 07-30-2021 Lymphocytes Auto (Unsp spec) [#/Vol] 1.78 10*3/uL 0.83-4.51 [facility] Work Phone: Basophil percentageon 2021 Basophils (Bld) [#/Vol] 6.8 10*3/uL 4.4-11.0 [facility] Work Phone: Basophils (Bld) [#/Vol] 4.2 10*3/uL 2.0-7.7 [facility] Work Phone: Basophils/100 WBC (Bld) 0.4 % 0-1 [facility] Work Phone: Basophils/100 WBC (Bld) 61.8 % 47-70 [facility] Work Phone: Basophils/100 WBC (Bld) 4.7 % 0-5 [facility] Work Phone: Eosinophils/100 WBC (Bld) 4.7 % 0-5 [facility] Work Phone: Neutrophils (Bld) [#/Vol] 4.2 10*3/uL 2.0-7.7 [facility] Work Phone: Neutrophils/100 WBC (Bld) 61.8 % 47-70 [facility] Work Phone: [phone] WBC (Bld) [#/Vol] 6.8 10*3/uL 4.4-11.0 [facility]: Blood erythrocytes count (nu mber/volume)on 07-30-2021 RBC (Bld) [#/Vol] 3.53 10*6/uL 4.2-5.4 [facility]: Blood hemoglobin measurement (mass/volume)on 07-30-2021 Hemoglobin (Bld) [Mass/Vol] 9.5 g/dL 12.0-15.0 [facility] Work Phone: Blood lymphocytes/100 leukoc yteson 07-30-2021 Lymphocytes/100 WBC (Bld) 26.1 % 19-41 [facility] Work Phone: Blood monocytes/100 leukocyt eson 07-30-2021 Monocytes/100 WBC (Bld) 6.7 % 0-10 [facility] Work Phone: Blood platelet mean volumeon 07-30-2021 Platelet mean volume (Bld) [Entitic vol] 10.2 fL 6.2-12.0 [facility] Work Phone: Determination of erythrocyte mean corpuscular volume (MCV)on 07-30-2021 MCV (RBC) [Entitic vol] 87.5 fL 81-99 [facility] Work Phone: Hematocrit Auto (Bld) [Volum e fraction]on 07-30-2021 Hematocrit (Bld) [Volume fraction] 30.9 % 37-47 [facility] Work Phone: Laboratory - Hematology and Cell countson 07-30-2021 Erythrocyte distribution width (RBC) [Entitic vol] 49.2 fL 35.1-43.9 [facility] Work Phone: Erythrocyte distribution width (RBC) [Ratio] 15.4 % 11.6-14.6 [facility] Work Phone: Immature granulocytes/100 WBC (Bld) 0.300 % 0.0-0.9 [facility] Work Phone: Comment on above: IG% - Immature Granu locytes (promyelocytes, myelocytes and metamyelocytes) > 1% indicates that a LEFT SHIFT is Present. MCH (RBC) [Entitic mass] 26.9 pg 27.0-32.0 [facility] Work Phone: Nucleated RBC/100 WBC (Bld) [Ratio] 0 % 0-5 [facility] Work Phone: MCHC Auto (RBC) [Mass/Vol]on 07-30-2021 MCHC (RBC) [Mass/Vol] 30.7 g/dL 32-36 [facility] Work [facility]: No Panel Informationon 07-30 26.9 pg 27.0-32.0 [facility] Work Phone: 15.4 % 11.6-14.6 [facility] Work Phone: 49.2 fl 35.1-43.9 [facility] Work Phone: [phone] 0.300 % 0.0-0.9 [facility] Work Phone: 0 % 0-5 [facility] Work Phone: Platelets bldon 07-30-2021 Platelets (Bld) [#/Vol] 236 10*3/uL 150-450 [facility] Work Phone: Absolute lymphocyte counton 07-27-2021 Lymphocytes Auto (Unsp spec) [#/Vol] 1.59 10*3/uL 0.83-4.51 [facility] Work Phone: Basophil percentageon 2021 Basophil percentage 81 mg/dL 74-106 [facility] Work Phone: Basophil percentage 138 mmol/L 136-145 [facility] Work Phone: Basophil percentage 4.2 mmol/L 3.5-5.1 [facility] Work Phone: Basophil percentage 107 mmol/L 98-107 [facility] Work Phone: Basophils (Bld) [#/Vol] 6.4 10*3/uL 4.4-11.0 [facility] Work Phone: Basophils (Bld) [#/Vol] 4.1 10*3/uL 2.0-7.7 [facility] Work Phone: Basophils/100 WBC (Bld) 0.3 % 0-1 [facility] Work Phone: Basophils/100 WBC (Bld) 63.2 % 47-70 [facility] Work Phone: Basophils/100 WBC (Bld) 5.1 % 0-5 [facility] Work Phone: Chloride [Moles/Vol] 107 mmol/L 98-107 [facility] Work [facility]: Eosinophils/100 WBC (Bld) 5.1 % 0-5 [facility] Work Phone: Glucose [Mass/Vol] 81 mg/dL 74-106 [facility] Work Phone: Neutrophils (Bld) [#/Vol] 4.1 10*3/uL 2.0-7.7 [facility] Work Phone: Neutrophils/100 WBC (Bld) 63.2 % 47-70 [facility] Work Phone: Potassium [Moles/Vol] 4.2 mmol/L 3.5-5.1 [facility] Work Phone: Sodium [Moles/Vol] 138 mmol/L 136-145 [facility] Work Phone: WBC (Bld) [#/Vol] 6.4 10*3/uL 4.4-11.0 [facility] Work Phone: Blood erythrocytes count (nu mber/volume)on 07-27-2021 RBC (Bld) [#/Vol] 3.70 10*6/uL 4.2-5.[address] [facility] Work Phone: Blood hemoglobin measurement (mass/volume)on 07-27-2021 Hemoglobin (Bld) [Mass/Vol] 10.2 g/dL 12.0-15.0 [facility] Work Phone: Blood lymphocytes/100 leukoc yteson 07-27-2021 Lymphocytes/100 WBC (Bld) 24.7 % 19-41 [facility] Work Phone: Blood monocytes/100 leukocyt eson 07-27-2021 Monocytes/100 WBC (Bld) 6.2 % 0-10 [facility] Work Phone: Blood platelet mean volumeon 07-27-2021 Platelet mean volume (Bld) [Entitic vol] 10.5 fL 6.2-12.0 [facility] Work Phone: Determination of erythrocyte mean corpuscular volume (MCV)on 07-27-2021 MCV (RBC) [Entitic vol] 88.1 fL 81-99 [facility] Work Phone: Hematocrit Auto (Bld) [Volum e fraction]on 07-27-2021 Hematocrit (Bld) [Volume fraction] 32.6 % 37-47 [facility] Work Phone: Laboratory - Chemistry and C hemistry - challengeon 07-27-2021 CO2 [Moles/Vol] 25.0 mmol/L 21.0-32.0 [facility] Work Phone: Urea nitrogen/Creatinine [Mass ratio] 21.8 mg/mg 10-20 [facility] Work Phone: Laboratory - Hematology and Cell countson 07-27-2021 Erythrocyte distribution width (RBC) [Entitic vol] 49.3 fL 35.1-43.9 [facility] Work Phone: Erythrocyte distribution width (RBC) [Ratio] 15.5 % 11.6-14.6 [facility] Work Phone: Immature granulocytes/100 WBC (Bld) 0.500 % 0.0-0.9 [facility] Work Phone: Comment on above: IG% - Immature Granu locytes (promyelocytes, myelocytes and metamyelocytes) > 1% indicates that a LEFT SHIFT is Present. MCH (RBC) [Entitic mass] 27.6 pg 27.0-32.0 [facility] Work Phone: Nucleated RBC/100 WBC (Bld) [Ratio] 0 % 0-5 [facility] Work Phone: MCHC Auto (RBC) [Mass/Vol]on 07-27-2021 MCHC (RBC) [Mass/Vol] 31.3 g/dL 32-36 [facility] Work Phone: No Panel Informationon 07-27 Estimated GFR (MDRD) Amer 51 mL/min >60 [facility] Work Phone: Comment on above: GFR Calc Estimated GFR (MDRD) Non-Af Amer 42 mL/min >60 [facility] Work Phone: Comment on above: Non- GFR Calc 27.6 pg 27.0-32.0 [facility] Work Phone: 15.5 % 11.6-14.6 [facility] Work Phone: 49.3 fl 35.1-43.9 [facility] Work Phone: 0.500 % 0.0-0.9 [facility] Work Phone: 0 % 0-5 [facility] Work Phone: 42 mL/min >60 [facility] Work Phone: 51 mL/min >60 [facility] Work Phone: 21.8 RATIO 10-20 [facility] Work Phone: 25.0 mmol/L 21.0-32.0 [facility] Work Phone: Platelets bldon 07-27-2021 Platelets (Bld) [#/Vol] 259 10*3/uL 150-450 [facility] Work Phone: Serum or plasma calcium keyona urement (mass/volume)on 07-27-2021 Calcium [Mass/Vol] 9.1 mg/dL 8.5-10.1 [facility] Work Phone: Serum or plasma creatinine m easurement (mass/volume)on 07-27-2021 Creatinine [Mass/Vol] 1.33 mg/dL 0.55-1.02 [facility] Work Phone: Comment on above: The validity of the calculated GFR & GFRAA in patients over 70 years has not been determined. Clinical correlation is essential. Serum or plasma urea nitroge n measurement (mass/volume)on 07-27-2021 Urea nitrogen [Mass/Vol] 29 mg/dL 7-18 [facility] Work Phone: Thin prep Papanicolaou smear with manual screeningon 07-27-2021 Thin prep Papanicolaou smear with manual screening 6 5-15 [facility] Work Phone: ANAER CULTUREon 07-25-2021 ANAER CULTURE NO GROWTH OF ANAEROBES AFTER 5 DAYS Normal [facility] Comment on above: Order Comment: Trung s: M Performed By: #### L [id number] #### [facility] [address] [place] [address] Order Comment: Trung s: M: RIGHT ELBOW CULTURE ANAEROBIC Performed By: #### M [id number] ####[facility] [id number] [place], [place] [address]Ss# [phone] SURG TISSUEon 07-25-2021 SURG TISSUE GRAM STAIN RARE WBC'S NO ORGANISMS SEEN RESULT NO GROWTH AFTER 5 DAYS Normal [facility] Comment on above: Order Comment: Trung s: M: DISTAL HUMERUS TISSUE RIGHT CULTURE AEROBIC Performed By: #### M [id number] ####[facility] [id number] [place], [place] [address]Cd# [phone] SURG TISSUE GRAM STAIN NO WBC'S SEEN NO ORGANISMS SEEN NO GROWTH AFTER 5 DAYS Normal [facility] Comment on above: Order Comment: Trung s: M: RIGHT ELBOW CULTURE AEROBIC Performed By: #### M [id number] ####[facility] [id number] [place], [place] [address]Jm# [phone] Absolute lymphocyte counton 07-23-2021 Lymphocytes Auto (Unsp spec) [#/Vol] 1.36 10*3/uL 0.83-4.51 [facility] Work Phone: [phone] Basophil percentageon 2021 Basophil percentage 87 mg/dL 74-106 [facility] Work Phone: [phone] Basophil percentage 140 mmol/L 136-145 [facility] Work Phone: [phone] Basophil percentage 3.8 mmol/L 3.5-5.1 [facility] Work Phone: [phone] Basophil percentage 106 mmol/L 98-107 [facility] Work Phone: [phone] Basophils (Bld) [#/Vol] 7.0 10*3/uL 4.4-11.0 [facility] Work Phone: Basophils (Bld) [#/Vol] 4.8 10*3/uL 2.0-7.7 [facility] Work Phone: Basophils/100 WBC (Bld) 0.4 % 0-1 [facility] Work Phone: Basophils/100 WBC (Bld) 69.2 % 47-70 [facility] Work Phone: Basophils/100 WBC (Bld) 4.0 % 0-5 [facility] Work Phone: Chloride [Moles/Vol] 106 mmol/L 98-107 [facility] Work Phone: Eosinophils/100 WBC (Bld) 4.0 % 0-5 [facility] Work Phone: Glucose [Mass/Vol] 87 mg/dL 74-106 [facility] Work Phone: Neutrophils (Bld) [#/Vol] 4.8 10*3/uL 2.0-7.7 [facility] Work Phone: Neutrophils/100 WBC (Bld) 69.2 % 47-70 [facility] Work Phone: Potassium [Moles/Vol] 3.8 mmol/L 3.5-5.1 [facility] Work Phone: Sodium [Moles/Vol] 140 mmol/L 136-145 [facility] Work Phone: WBC (Bld) [#/Vol] 7.0 10*3/uL 4.4-11.0 [facility] Work Phone: Blood erythrocytes count (nu mber/volume)on 07-23-2021 RBC (Bld) [#/Vol] 3.48 10*6/uL 4.2-5.4 [facility] Work [facility]: Blood hemoglobin measurement (mass/volume)on 07-23-2021 Hemoglobin (Bld) [Mass/Vol] 9.3 g/dL 12.0-15.0 [facility] Work Phone: Blood lymphocytes/100 leukoc yteson 07-23-2021 Lymphocytes/100 WBC (Bld) 19.6 % 19-41 [facility] Work Phone: Blood monocytes/100 leukocyt eson 07-23-2021 Monocytes/100 WBC (Bld) 6.5 % 0-10 [facility] Work Phone: Blood platelet mean volumeon 07-23-2021 Platelet mean volume (Bld) [Entitic vol] 10.9 fL 6.2-12.0 [facility] Work Phone: Determination of erythrocyte mean corpuscular volume (MCV)on 07-23-2021 MCV (RBC) [Entitic vol] 86.8 fL 81-99 [facility] Work Phone: Hematocrit Auto (Bld) [Volum e fraction]on 07-23-2021 Hematocrit (Bld) [Volume fraction] 30.2 % 37-47 [facility] Work Phone: Laboratory - Chemistry and C hemistry - challengeon 07-23-2021 CO2 [Moles/Vol] 29.0 mmol/L 21.0-32.0 [facility] Work Phone: Urea nitrogen/Creatinine [Mass ratio] 26.7 mg/mg 10-20 [facility] Work Phone: Laboratory - Hematology and Cell countson 07-23-2021 Erythrocyte distribution width (RBC) [Entitic vol] 48.8 fL 35.1-43.9 [facility] Work Phone: Erythrocyte distribution width (RBC) [Ratio] 15.3 % 11.6-14.6 [facility] Work Phone: Immature granulocytes/100 WBC (Bld) 0.300 % 0.0-0.9 [facility] Work Phone: Comment on above: IG% - Immature Granu locytes (promyelocytes, myelocytes and metamyelocytes) > 1% indicates that a LEFT SHIFT is Present. MCH (RBC) [Entitic mass] 26.7 pg 27.0-32.0 [facility] Work Phone: Nucleated RBC/100 WBC (Bld) [Ratio] 0 % 0-5 [facility] Work Phone: MCHC Auto (RBC) [Mass/Vol]on 07-23-2021 MCHC (RBC) [Mass/Vol] 30.8 g/dL 32-36 [facility] Work Phone: No Panel Informationon 07-23 Estimated GFR (MDRD) Amer 57 mL/min >60 [facility] Work Phone: Comment on above: GFR Calc Estimated GFR (MDRD) Non-Af Amer 47 mL/min >60 [facility] Work Phone: Comment on above: Non- GFR Calc 26.7 pg 27.0-32.0 [facility] Work Phone: 15.3 % 11.6-14.6 [facility] Work Phone: 48.8 fl 35.1-43.9 [facility] Work Phone: 0.300 % 0.0-0.9 [facility] Work Phone: 0 % 0-5 [facility] Work Phone: [phone] 47 mL/min >60 [facility] Work Phone: 57 mL/min >60 [facility] Work Phone: 26.7 RATIO 10-20 [facility] Work Phone: [phone] 29.0 mmol/L 21.0-32.0 [facility] Work Phone: Platelets bldon 03-10-2022 Platelets (Bld) [#/Vol] 224 10*3/uL 150-450 [facility] Work Phone: Serum or plasma calcium keyona urement (mass/volume)on 07-23-2021 Calcium [Mass/Vol] 8.8 mg/dL 8.5-10.1 [facility] Work Phone: Serum or plasma creatinine m easurement (mass/volume)on 07-23-2021 Creatinine [Mass/Vol] 1.20 mg/dL 0.55-1.02 [facility] Work Phone: Comment on above: The validity of the calculated GFR & GFRAA in patients over 70 years has not been determined. Clinical correlation is essential. Serum or plasma urea nitroge n measurement (mass/volume)on 07-23-2021 Urea nitrogen [Mass/Vol] 32 mg/dL 7-18 [facility] Work Phone: Thin prep Papanicolaou smear with manual screeningon 07-23-2021 Thin prep Papanicolaou smear with manual screening 5 5-15 [facility] Work Phone: BMPon 07-22-2021 Anion gap [Moles/Vol] 10 mmol/L Normal 5-16 [facility] Comment on above: Order Comment: Campu s: M Performed By: #### L 500.56951, L500.08804 #### [facility] [place] [address] Calcium [Mass/Vol] 8.9 mg/dL Normal 8.5-10.5 [facility] Comment on above: Order Comment: Campu s: M Result Comment: NOTE NEW NORMAL RANGE DUE TO REAGENT CHANGE Performed By: #### L 500.80087, L500.76935 #### [facility] [address] [place] [address] Chloride [Moles/Vol] 106 mmol/L Normal 98-107 [facility] Comment on above: Order Comment: Campu s: M Performed By: #### L 500.24531, L500.55519 #### [facility] [place] [address] CO2 [Moles/Vol] 25.0 mmol/L Normal 21-32 [facility] Comment on above: Order Comment: Campu s: M Performed By: #### L 500.02508, L5.05299 #### [facility] [address] [place] [address] Creatinine [Mass/Vol] 1.32 mg/dL High 0.510-0.950 [facility] Comment on above: Order Comment: Campu s: M Result Comment: Nash ents receiving either N-Acetylcysteine (NAC) or Metamizole prior to venipuncture, may have falsely depressed results. Performed By: #### L 500.91031, L5.35916 #### [facility] [address] [place] [address] Glucose [Mass/Vol] 110 mg/dL High 70-100 [facility] Comment on above: Order Comment: Campu s: M Result Comment: 70-1 00- Normal Fasting; 100-125 Impaired Fasting; greater than 126 on more than one result- Diabetes. ADA guidelines. Results may be falsely elevated after the administration of Sulfapyridine. Results may be falsely depressed after the administration of Sulfasalazine. Performed By: #### L 500.12988, L5.76198 #### [facility] [address] [place] [address] Potassium [Moles/Vol] 4.0 mmol/L Normal 3.5-5.1 [facility] Comment on above: Order Comment: Campu s: M Performed By: #### L 500.91992, L5.25441 #### [facility] [address] [place], [place] [address] Sodium [Moles/Vol] 141 mmol/L Normal 136-145 [facility] Comment on above: Order Comment: Campu s: M Performed By: #### L 500.85013, L500.02426 #### [facility] [address] [place] [address] Urea nitrogen [Mass/Vol] 34 mg/dL High 7- [facility] Comment on above: Order Comment: Campu s: M Performed By: #### L 500.29197, L500.49079 #### [facility] [address] [place] [address] Urea nitrogen/Creatinine [Mass ratio] 26 mg/mg High 15-24 [facility] Comment on above: Order Comment: Campu s: M Performed By: #### L 500.23878, L500.14244 #### [facility] [address] [place] [address] CBC W/DIFFon 07-22-2021 BASO ABS 0.00 K/CU MM Normal 0-0.2 [facility] Comment on above: Order Comment: Campu s: M Performed By: #### L 500.44790, L500.96794 #### [facility] [address] [place] [address] Basophils/100 WBC (Bld) 0.3 % Normal 0-2 M [facility] Comment on above: Order Comment: Campu s: M Performed By: #### L 500.17698, L500.14291 #### [facility] [address] [place] [address] EOS ABS 0.30 K/CU MM Normal 0-0.5 [facility] Comment on above: Order Comment: Campu s: M Performed By: #### L 500.99642, L500.80209 #### [facility] [address] [place] [address] Eosinophils/100 WBC (Bld) 4.0 % Normal 0-5 [facility] Comment on above: Order Comment: Campu s: M Performed By: #### L 500.78551, L500.59549 #### [facility] [address] [place] [address] Erythrocyte distribution width (RBC) [Ratio] 15.2 % High 11-14.5 [facility] Comment on above: Order Comment: Campu s: M Performed By: #### L 500.11164, L500.92771 #### [facility] [address] [place] [address] Hematocrit (Bld) [Volume fraction] 27.9 % Low 35.0-47.0 [facility] Comment on above: Order Comment: Campu s: M Performed By: #### L 500.93366, L5.30000 #### [facility] [address] [place] [address] Hemoglobin (Bld) [Mass/Vol] 8.9 g/dL Low 11.5-15.5 [facility] Comment on above: Order Comment: Campu s: M Performed By: #### L 500.72640, L5.30892 #### [facility] [address] [place] [address] IMMATR GRAN ABS 0.00 K/CU MM Normal Less than 2 [facility] Comment on above: Order Comment: Campu s: M Performed By: #### L 500.46014, L5.13376 #### [facility] [address] [place] [address] IMMATURE GRAN % 0.3 % Normal Less than 2 [facility] Comment on above: Order Comment: Campu s: M Performed By: #### L 500.47308, L500.27422 #### [facility] [address] [place] [address] LYMPH ABS 1.60 K/CU MM Normal 0.9-4.4 [facility] Comment on above: Order Comment: Campu s: M Performed By: #### L 500.17915, L500.70457 #### [facility] [address] [place] [address] Lymphocytes/100 WBC (Bld) 25.2 % Normal 20-40 [facility] Comment on above: Order Comment: Campu s: M Performed By: #### L 500.20589, L500.18148 #### [facility] [address] [place] [address] MCHC (RBC) [Mass/Vol] 31.9 g/dL Low 32.0-36.0 [facility] Comment on above: Order Comment: Campu s: M Performed By: #### L 500.78480, L5.34261 #### [facility] [address] [place] [address] MCV (RBC) [Entitic vol] 85.3 fL Normal 80.0-99.0 [facility] Comment on above: Order Comment: Campu s: M Performed By: #### L 500.64085, L5.69170 #### [facility] [address] [place] [address] MONO ABS 0.30 K/CU MM Normal 0.1-1.1 [facility] Comment on above: Order Comment: Campu s: M Performed By: #### L 500.25870, L5.16840 #### [facility] [address] [place] [address] Monocytes/100 WBC (Bld) 4.8 % Normal 2-10 M [facility] Comment on above: Order Comment: Campu s: M Performed By: #### L 500.90227, L5.65820 #### [facility] [address] [place] [address] NEUTROPHIL ABS 4.20 K/CU MM Normal 2.0-8.3 [facility] Comment on above: Order Comment: Campu s: M Performed By: #### L 500.76313, L500.97723 #### [facility] [address] [place] [address] Neutrophils/100 WBC (Bld) 65.4 % Normal 45-75 [facility] Comment on above: Order Comment: Campu s: M Performed By: #### L 500.85210, L5.64328 #### [facility] [address] [place] [address] Nucleated RBC/100 WBC (Bld) [Ratio] 0.0 % Normal Less than 1 [facility] Comment on above: Order Comment: Campu s: M Performed By: #### L 500.20842, L5.72726 #### [facility] [address] [place] [address] Platelet mean volume (Bld) [Entitic vol] 10.5 fL Normal 9.4-12.4 [facility] Comment on above: Order Comment: Campu s: M Performed By: #### L 500.50950, L5.44458 #### [facility] [address] [place] [address] PLT 179 K/CU MM Normal 150-450 [facility] Comment on above: Order Comment: Campu s: M Performed By: #### L 500.65040, L5.21269 #### [facility] [address] [place] [address] RBC 3.27 M/CU MM Low 3.90-5.30 [facility] Comment on above: Order Comment: Campu s: M Performed By: #### L 500.15094, L500.43091 #### [facility] [address] [place] [address] WBC 6.4 K/CUMM Normal 4.5-11.0 [facility] Comment on above: Order Comment: Campu s: M Performed By: #### L 500.84342, L500.29472 #### [facility] [address] [place] [address] GFR ESTon 07-22-2021 IF AMER 48 Normal [facility] Comment on above: Order Comment: Campu s: M Performed By: #### L 500.11367, L500.49123 #### [facility] [address] [place] [address] IF non-AFR AMER 40 Normal [facility] Comment on above: Order Comment: Campu s: M Performed By: #### L 500.79744, L500.20494 #### [facility] [address] [place] [address] GLUCOSE METERon 07-22-2021 Glucose [Mass/Vol] 216 mg/dL High 85-125 [facility] Comment on above: Performed By: #### L 500.04572 ####[facility] [id number] [place], [place] [address]Ot# [phone] Glucose [Mass/Vol] 112 mg/dL Normal 85-125 [facility] OTPNon 07-22-[address] OT [address] [facility] OTPN Occupational Therapy Inpatient Treatment Note Medical Diagnosis: antibiotic spacer placement on 04/13/2021 s/p removal of antibiotic spacer and right total elbow by Dr. Stout on 07/20/21 OCCUPATIONAL PROFILE AND HISTORY Demographics: Age: 71Y Gender: Female Primary Language: Maldivian Preferred Language: Maldivian Referring Service/Team: Orthopedics Rehabilitation Precautions/Restrict ions: fall risk, NWB (R) UE Patient Report: I HAVENT BRUSHED MY TEETH SINCE I GOT HERE Patient/Caregiver Goals: go home Pain: Patient currently has pain. Patient reports a pain level of 4 out of 10. Interventions: Patient medicated. OBJECTIVE / OCCUPATIONAL PERFORMANCE General Observation: SEEN FOR LIGHT ADLS AM THIS DATE. PATIENT IN BED, AGREEBLE TO GET TO CHAIR, ASSISTED PATIENT W/ ORDERING BREAKFAST, Activities of Daily Living: Current Status Previous Status ADLs Feeding Supervision Supervision Grooming Supervision Minimal assistance Bathing-UE Maximal assistance Maximal assistance Bathing-LE - Maximal assistance Dressing-UE - Maximal assistance Dressing-LE - Maximal assistance Toileting - Maximal assistance AM-PAC Daily Activities: Putting On/Taking Off Lower Body Clothing: A lot of help needed Bathing:: A lot of help needed Toileting: A lot of help needed Putting On/Taking Off Upper Body Clothing: A lot of help needed Grooming: A little help needed Eating a Meal: A little help needed Raw Score = 14 , AM-PAC t-Scale Score = 33.39 and G-Code Modifier = CK Functional Mobility: [facility] PATIENT NAME: JOSELINE ELLIS [address] [facility] [address] MEDICAL REC #: [id number] [place] [address] ADMIT DATE: SERVICE DATE: 07/22/21 Occupational Therapy Progress Note ATTENDING PHY: Rajwinder Stout MD Bed Mobility: All bed mobility including supine to sit, rolling, scooting. requiring moderate assistance. OFF LEFT SIDE OF THE BED, MOD V/CS FOR RUE NWB MIN A FOR SCOOTIG TO EOB USING LUE Transfers: Patient transferred sit to/from stand requiring moderate assistance of 1 person. Patient used the following equipment: Bed rails. Patient transferred bed to/from chair requiring minimal assistance of 1 person. Patient used the following equipment: Large based quad cane. CUES FOR REACHING BACK W/ LUE Locomotion/Gait/Ambu lation: Not assessed/applicable Interventions: Self Care/Home Management: BED MOBILITY, TRANSFERS, UNSUPPORTED SITTING / STANDING BLAANCE, LBQC SAFETY, ADAPTIVE GROOMING UE BATHING Pain Reassessment: No significant change in pain during session. Education: Education Provided: Precautions. Plan of care. Safety issues and interventions. Fall protocol. Supervision requirements. Use of adaptive devices. Activities of daily living. Bed mobility. Functional transfers. Home exercise/activity plan. Audience: Patient. Mode: Explanation. Demonstration. Response: Needs practice. Needs reinforcement. Applied knowledge. ASSESSMENT Response to Visit: FAIR TOLERANCE TO ADLS AND MOBILITY, DECREASED STRENGTH, ENDURANCE, BALANCE LIMITING, REQ SIGNIFICANT ASSIST FOR ADLS / TRANSFERS, WOULD BENEFIT FROM ADDITIONAL THEAPY AT SLOWER PACE PRIOR TO DC HOME Activity/Participati on Problem List and Goals: No updates at this time. Progress Toward Goals: TREATMENT GOAL REVIEW: 1. pt will complete safe functional transfers and mobility with FWW and supervision - Not Met: ongoing 2. pt will complete toileting and toilet transfers with supervision - Not Met ongoing 3. pt will complete ADL at sink level with supervision - Not Met ongoing 4. pt will complete UB ADLs with supervision - Not Met ongoing Time frame to achieve treatment goal(s): 5x/wk, 2 wks PLAN Treatment Frequency, Duration and Interventions: Occupational Therapy is recommended for 5x/wk, 2 wks Occupational Therapy treatment is to include: Graded ADLs and IADLs, ther act, ther ex, functional transfer training, family instruction, energy conservation, HEP Recommended Occupational Therapy Follow Up: Upon acute care discharge, the following is currently recommended: [facility] PATIENT NAME: JOSELINE ELLIS [address] [facility] [address] MEDICAL REC #: [id number] [place] [address] ADMIT DATE: SERVICE DATE: 07/22/21 Occupational Therapy Progress Note ATTENDING PHY: Rajwinder Stout MD Inpatient Occupational Therapy, LESS THAN 60 minutes per day. Equipment Recommended: n/a Recommended Consults: None currently. Development of Plan of Care: Patient participated in plan of care development today. If there are any questions regarding this service, please contact the Acute Therapy Department at extension [phone] Communication to Nursing: No updates at this time. Location of Patient at End of Therapy Session: In chair, (more content not included)... Normal [facility] 07-22-2021 PROG [facility] Patient Name: JOSELINE ELLIS [address] Date of : [address] [place] [address] Unit Number: [id number] Progress Note-Hospitalist Patient Status: REG SDC Attending Doctor: Rajwinder Stout MD Service Date: 07/22/21 0600 Chief Complaint Chief Complaint Medical management Subjective S: (2 ROS minimum) No fever chills no chest pain shortness breath nausea vomiting Objective (ROS) Nursing Vitals Vital Signs (Last) Result Date Time Pulse Ox 90 07/22 829 B/P 110/53 07/22 829 Temp 97.7 07/22 829 Pulse 75 07/22 829 Resp 14 07/22 829 O2 Delivery NASAL CANNULA 07/22 814 O2 Flow Rate 4L 07/22 0020 Physical Exam: General: Patient is alert and oriented x3 and is in no acute respiratory distress. HEENT no eye congestion no ear discharge. Neck is supple no JVD. Lungs: Clear to auscultation, no wheezing, rales, or rhonchi. Cardiac: S1-S2 within normal limits Abdomen: Soft, nontender, nondistended. Extremities: No cyanosis Skin: No rashes or breakdown. Neurologic: Cranial nerves from II-XII intact grossly. Psych normal affect. Lymphatic system, no submandibular or anterior cervical lymphadenopathy. Diagnostic Data: Lab 24hr (CBC/BMP [facility]) 07/22/21 1214: SARS-CoV-2 (PCR) NEGATIVE 07/22/21 1204: Whole Bld Glucose 216 H 07/22/21 0640: Whole Bld Glucose 112 07/22/21 0444: [Embedded Image Not Available] Anion Gap 10, Est GFR ( Amer) 48, Est GFR (Non-Af Amer) 40, BUN/Creatinine Ratio 26 H, Glucose 110 H, Total Calcium 8.9, RBC 3.27 L, MCV 85.3, MCHC 31.9 L, RDW 15.2 H, MPV 10.5, Immature Gran % (Auto) 0.3, Abs Immat Gran (auto) 0.00, Seg Neutrophils % 65.4, Lymphocytes % 25.2, Monocytes % 4.8, Eosinophils % 4.0, Basophils % 0.3, Neutrophils # 4.20, Lymphocytes # 1.60, Monocytes # 0.30, Eosinophils # 0.30, Basophils # 0.00, Nucleated RBCs 0.0 07/21/212020: Whole Bld Glucose 108 07/21/21 1718: Whole Bld Glucose 112 Assessment and Plan Conclusion 1. Humerus fracture 2. Atrial fibrillation 3. Hypertension 4. Diabetes 5. Obesity 6. Elevated serum creatinine 7. Hardware failure 8. Anemia Patient medically stable, needs to have anemia work-up as outpatient, patient was discharged today by orthopedic to halfway. Disclaimer This dictation was created using voice recognition software. Phonetic and/or minor grammatical errors may exist. eSign Date and Time Hung Chong MD Verified/Reviewed by 07/22/21 1540 [facility] Progress Note-Hospitalist [facility] PROG.ORTHOon 07-22-2021 PROG.[facility] Patient Name: JOSELINE ELLIS [address] Date of : [address] [address] Unit Number: [id number] Progress Note-Ortho Patient Status[place] [facility] Attending Doctor: Rajwinder Stout MD Service Date: 07/22/21 1049 Progress Note - Ortho Subjective S: (2 ROS minimum) Patient is doing well today. She stayed because she is pending a ride back to the [facility]. All cultures are negative to date. Patient's pain is well controlled Objective Nursing Vitals Vital Signs (Last) Result Date Time Pulse Ox 90 07/22 829 B/P 110/53 07/22 829 Temp 97.7 07/22 829 Pulse 75 07/23 0730 Resp 14 07/22 829 O2 Delivery NASAL CANNULA 07/22 814 O2 Flow Rate 4L 07/22 0020 General Appearance Awake alert oriented x3. No apparent distress Physical Exam On physical examination her splint is clean and dry. She does have some diffuse numbness and tingling in her fingers this has been present since her first surgery. She has good flexion and extension of all digits. She is good capillary refill of all digits. Diagnostic Data Lab 24hr (CBC/BMP [facility]) 07/22/21 0640: Whole Bld Glucose 112 07/22/21 0444: [Embedded Image Not Available] Anion Gap 10, Est GFR ( Amer) 48, Est GFR (Non-Af Amer) 40, BUN/Creatinine Ratio 26 H, Glucose 110 H, Total Calcium 8.9, RBC 3.27 L, MCV 85.3, MCHC 31.9 L, RDW 15.2 H, MPV 10.5, Immature Gran % (Auto) 0.3, Abs Immat Gran (auto) 0.00, Seg Neutrophils % 65.4, Lymphocytes % 25.2, Monocytes % 4.8, Eosinophils % 4.0, Basophils % 0.3, Neutrophils # 4.20, Lymphocytes # 1.60, Monocytes # 0.30, Eosinophils # 0.30, Basophils # 0.00, Nucleated RBCs 0.0 07/21/212020: Whole Bld Glucose 108 07/21/21 1718: Whole Bld Glucose 112 07/21/21 1117: Whole Bld Glucose 198 H Assessment/Plan Conclusion 1. Nonunion of fracture of humerus 2. Humerus fracture 3. Atrial fibrillation 4. Hypertension 5. Diabetes 6. Obesity 7. Elevated serum creatinine 8. Hardware failure 9. Anemia Stable Problems Problems not specifically addressed in the above plan are stable and do not warrant adjustment of the current method of therapy. Stay Reason/Anticipated Disch Awaiting Placement Physician Attestation Statement of Attestation 71-year-old female postop day #2 status post total elbow arthroplasty. Patient is awaiting a ride to her ECF. All cultures are negative to date. She strict nonweightbearing. She is to follow-up with me in the office in 2 weeks. We are again to continue to follow her cultures in the office and let the facility know if these become positive. Plan was discussed with patient. ERG I confirm that I have evaluated the patient, reviewed the history and physical, medications, diagnostic results, physical exam, assessment and plan of care of the patient. Disclaimer This dictation was created using voice recognition software. Phonetic and/or minor grammatical errors may exist. eSign Date and Time Rajwinder Stout MD Verified/Reviewed by 07/22/21 1050 [facility] Progress Note-Ortho [facility] 07-22-2021 PT Progress Note [facility] PTPN Physical Therapy Inpatient Treatment Note Medical Diagnosis: antibiotic spacer placement on 04/13/2021 s/p removal of antibiotic spacer and right total elbow by Dr. Stout on 07/20/21 Demographics: Age: 71Y Gender: Female Primary Language: Maldivian Preferred Language: Maldivian Rehabilitation Precautions/Restrict ions: fall risk, NWB (R) UE SUBJECTIVE Patient Report: I am going back to the halfway. Patient/Caregiver Goals: go home Pain: Patient currently has pain. Patient reports a pain level of 5 out of 10. Interventions: Repositioned patient. OBJECTIVE General Observation: Pt. up in chair hoping to go to SNF soon. Functional Activities After Today's Session: Transfers: Tx:Sit<->stand w/ MOD A. MIN A for standing balance. MIN A for turning and backing to sit. Locomotion/Ambulatio n: Patient was minimal assist with gait/ambulation of 1 person for 35'x2 . Patient requires the following assistive device(s): Large based quad cane. Teetering gait w/ Unsteadiness noted. One LOB w/ MOD A for recovery. One standing rest break due to pt fatigue. No SOB on RA although SPO2 did drop. Thex:seated (B) LE thex including heel toe ups, LAQ, marching. Pt voiced understanding to perform marco a her own as well. AM-PAC Basic Mobility: Turning Over in Bed: A lot of difficulty Sitting/Standing Chair with Arms: A lot of difficulty Lying on Back to Sitting on Side of Bed: A lot of difficulty Moving To/From Bed to Chair: A little help needed Walking in Hospital Room: A little help needed Climbing 3-5 Steps with Railing: A lot of help needed Raw Score = 14 , AM-PAC t-Scale Score = 38.10 and G-Code Modifier = CL Vital Signs: On RA 86-87% post gait w/o SOB. O2 replaced. Interventions: Gait Training: Transfer training, sitting and standing balance, gait [facility] PATIENT NAME: VENKATEHSJOSELINE [address] MEDICAL REC #: [id number] [place] [address] ADMIT DATE: SERVICE DATE: 07/22/21 Physical Therapy Progress Note ATTENDING PHY: Rajwinder Stout MD training w/ HARI, AMBROSIO regalado, Pt education: precautions and discharge planning. Pain Reassessment: No significant change in pain during session. Education: Education Provided: Precautions. Pain management. Pain scale. Plan of care. Functional transfers. Safety. Gait. Home exercise/activity plan. Audience: Patient. Mode: Explanation. Demonstration. Response: Needs practice. Needs reinforcement. ASSESSMENT Response to Visit: Tolerated fairly w/ demonstrating decreased strength, balance, mobility and endurance all making pt a fall risk. Pt would best benefit from continued inpt skilled therapies to improve overall function and safety. Activity/Participati on Problem List and Goals: No updates at this time. Progress Toward Goals: Time frame to achieve treatment goal(s): 2 weeks 1. Perform bed mobility with Mod I Ongoing 2. Perform transfers with Mod I Ongoing 3. ambulate 80ft with SBQC and Mod I Ongoing PLAN Treatment Frequency, Duration and Interventions: Continue Physical Therapy to achieve goals per previously established Plan of Care. ther ex, ther act, neuro re-ed, bed mobility training, transfer training, gait training, and HEP Recommended Physical Therapy Follow Up: Upon acute care discharge, the following is currently recommended: Inpatient Physical Therapy, LESS THAN 60 minutes per day. Recommended Equipment: None issued this visit. Recommended Consults: None currently. Development of Plan of Care: There was no change to plan of care today. If there are any questions regarding this service, please contact the Acute Therapy Department at extension [phone] Location of Patient at End of Therapy Session: In chair, call light within reach (R) UE propped w/ pillow. Services: Total Billed: 24 minutes (Timed: 24, Untimed: 0) 24.00 Timed: [08899] GAIT TRAIN EA 15 MIN 0.00 Untimed: [] PT Treatment- General ORDER Signed by: VIRGINIA PIERCE PTA 07/22/2021 12:09:20 [facility] PATIENT NAME: JOSELINE ELLIS [facility] [address] MEDICAL REC #: [id number] [place] [address] ADMIT DATE: SERVICE DATE: 07/22/21 Physical Therapy Progress Note ATTENDING PHY: Rajwinder Stout MD - CoSigned By: Caitlin Stubbs, PT, DPT 07/22/2021 3:37:[address] [facility] PATIENT NAME: [facility] [address] MEDICAL REC #: [id number] [place] [address] ADMIT DATE: SERVICE DATE: 07/22/21 Physical Therapy Progress Note ATTENDING PHY: Rajwinder Stout MD Normal [facility] [id number] 07-22-2021 SARS-CoV-2 (COVID-19) RNA ADE+probe Ql (Unsp spec) Negative Invalid Interpretation Code Negative [facility] Comment on above: Order Comment: Fredisu s: M : Nasopharyngeal swab Result Comment: RESU LTS CALLED TO Roxi GARCIA AT 1330 07/22/21 BY TRANG TERRY Negative results do not preclude SARS-CoV-2 infection and should not be used as the sole basis for treatment or other patient management decisions. Negative results must be combined with clinical observation, patient history, and epidemiological information. This test was performed by PCR. Performed By: #### L 770.75342 #### [facility] [address] [place] [address] # [phone] BMPon 07-21-2021 Anion gap [Moles/Vol] 11 mmol/L Normal 5-16 [facility] Comment on above: Order Comment: Campu s: M Performed By: #### L 500.01869, L500.09077 ####[facility] [id number] [place], [place] [address]Rq# [phone] Calcium [Mass/Vol] 9.0 mg/dL Normal 8.5-10.5 [facility] Comment on above: Order Comment: Campu s: M Result Comment: NOTE NEW NORMAL RANGE DUE TO REAGENT CHANGE Performed By: #### L 500.06097, L500.16772 ####[facility] [id number] [place], [place] [address]Fw# [phone] Chloride [Moles/Vol] 105 mmol/L Normal 98-107 [facility] Comment on above: Order Comment: Campu s: M Performed By: #### L 500.79972, L500.22348 ####[facility] [id number] [place], [place] [address]Bq# [phone] CO2 [Moles/Vol] 24.0 mmol/L Normal 21-32 [facility] Comment on above: Order Comment: Campu s: M Performed By: #### L 500.03990, L500.29354 ####[facility] [id number] [place], [place] [address]Aj# [phone] Creatinine [Mass/Vol] 1.21 mg/dL High 0.510-0.950 [facility] Comment on above: Order Comment: Campu s: M Result Comment: Nash ents receiving either N-Acetylcysteine (NAC) or Metamizole prior to venipuncture, may have falsely depressed results. Performed By: #### L 500.17265, L500.88580 ####[facility] [id number] [place] [address]Zt# [phone] Glucose [Mass/Vol] 149 mg/dL High 70-100 [facility] Comment on above: Order Comment: Campu s: M Result Comment: 70-1 00- Normal Fasting; 100-125 Impaired Fasting; greater than 126 on more than one result- Diabetes. ADA guidelines. Results may be falsely elevated after the administration of Sulfapyridine. Results may be falsely depressed after the administration of Sulfasalazine. Performed By: #### L 500.70651, L500.29936 ####[facility] [id number] [place], [place] [address]Ck# [phone] Potassium [Moles/Vol] 4.5 mmol/L Normal 3.5-5.1 [facility] Comment on above: Order Comment: Campu s: M Result Comment: Slig ht Hemolysis, Result may be affected. Performed By: #### L 500.38070, L500.07734 ####[facility] [id number] [place], [place] [address]Ev# [phone] Sodium [Moles/Vol] 140 mmol/L Normal 136-145 [facility] Comment on above: Order Comment: Campu s: M Performed By: #### L 500.91786, L500.63737 ####[facility] [id number] [place], [place] [address]Li# [phone] Urea nitrogen [Mass/Vol] 29 mg/dL High 7-26 [facility] Comment on above: Order Comment: Campu s: M Performed By: #### L 500.79482, L500.32957 ####[facility] [id number] [place], [place] [address]Oo# [phone] Urea nitrogen/Creatinine [Mass ratio] 24 mg/mg Normal 15-24 [facility] Comment on above: Order Comment: Campu s: M Performed By: #### L 500.16347, L500.15809 ####[facility] [id number] [place], [place] [address]Is# [phone] CBC W/DIFFon 07-21-2021 BASO ABS 0.00 K/CU MM Normal 0-0.2 [facility] Comment on above: Order Comment: Campu s: M Performed By: #### L 200.50866 #### [facility] [address] [place] [address] Basophils/100 WBC (Bld) 0.2 % Normal 0-2 M [facility] Comment on above: Order Comment: Campu s: M Performed By: #### L 200.15687 #### [facility] [address] [place] [address] EOS ABS 0.00 K/CU MM Normal 0-0.5 [facility] Comment on above: Order Comment: Campu s: M Performed By: #### L 200.71850 #### [facility] [address] [place] [address] Eosinophils/100 WBC (Bld) 0.5 % Normal 0-5 [facility] Comment on above: Order Comment: Campu s: M Performed By: #### L .49808 #### [facility] [address] [place] [address] Erythrocyte distribution width (RBC) [Ratio] 15.1 % High 11-14.5 [facility] Comment on above: Order Comment: Campu s: M Performed By: #### L 200.62185 #### [facility] [address] [place] [address] Hematocrit (Bld) [Volume fraction] 29.0 % Low 35.0-47.0 [facility] Comment on above: Order Comment: Campu s: M Performed By: #### L 200.03346 #### [facility] [address] [place] [address] Hemoglobin (Bld) [Mass/Vol] 9.2 g/dL Low 11.5-15.5 [facility] Comment on above: Order Comment: Campu s: M Performed By: #### L 200.89202 #### [facility] [address] [place] [address] IMMATR GRAN ABS 0.00 K/CU MM Normal Less than 2 [facility] Comment on above: Order Comment: Campu s: M Performed By: #### L 200.50710 #### [facility] [address] [place] [address] IMMATURE GRAN % 0.4 % Normal Less than 2 [facility] Comment on above: Order Comment: Campu s: M Performed By: #### L 200.50951 #### [facility] [address] [place] [address] LYMPH ABS 0.90 K/CU MM Normal 0.9-4.4 [facility] Comment on above: Order Comment: Campu s: M Performed By: #### L 200.62059 #### [facility] [address] [place] [address] Lymphocytes/100 WBC (Bld) 10.6 % Low 20-40 [facility] Comment on above: Order Comment: Campu s: M Performed By: #### L 200.30026 #### [facility] [address] [place] [address] MCHC (RBC) [Mass/Vol] 31.7 g/dL Low 32.0-36.0 [facility] Comment on above: Order Comment: Campu s: M Performed By: #### L 200.93151 #### [facility] [address] [place] [address] MCV (RBC) [Entitic vol] 85.5 fL Normal 80.0-99.0 [facility] Comment on above: Order Comment: Campu s: M Performed By: #### L 200.43654 #### [facility] [address] [place] [address] MONO ABS 0.40 K/CU MM Normal 0.1-1.1 [facility] Comment on above: Order Comment: Campu s: M Performed By: #### L 200.74296 #### [facility] [address] [place], [place] [id number] Monocytes/100 WBC (Bld) 4.9 % Normal 2-10 M [facility] Comment on above: Order Comment: Campu s: M Performed By: #### L 200.13351 #### [facility] [address] [place] [address] NEUTROPHIL ABS 7.20 K/CU MM Normal 2.0-8.3 [facility] Comment on above: Order Comment: Campu s: M Performed By: #### L 200.08611 #### [facility] [address] [place] [address] Neutrophils/100 WBC (Bld) 83.4 % High 45-75 [facility] Comment on above: Order Comment: Campu s: M Performed By: #### L 200.23430 #### [facility] [address] [place] [address] Nucleated RBC/100 WBC (Bld) [Ratio] 0.0 % Normal Less than 1 [facility] Comment on above: Order Comment: Campu s: M Performed By: #### L [id number] #### [facility] [address] [place] [address] Platelet mean volume (Bld) [Entitic vol] 10.7 fL Normal 9.4-12.4 [facility] Comment on above: Order Comment: Campu s: M Performed By: #### L [id number] #### [facility] [address] [place] [address] PLT 222 K/CU MM Normal 150-450 [facility] Comment on above: Order Comment: Campu s: M Performed By: #### L [id number] #### [facility] [address] [place] [address] RBC 3.39 M/CU MM Low 3.90-5.30 [facility] Comment on above: Order Comment: Campu s: M Performed By: #### L [id number] #### [facility] [address] [place] [address] WBC 8.6 K/CUMM Normal 4.5-11.0 [facility] Comment on above: Order Comment: Campu s: M Performed By: #### L [id number] #### [facility] [address] [place] [address] GFR ESTon 07-21-2021 IF AMER 53 Normal [facility] Comment on above: Order Comment: Campu s: M Performed By: #### L 500.64837, L500.05926 ####[facility] [id number] [place], [place] [address]Cx# [phone] IF non-AFR AMER 44 Normal [facility] Comment on above: Order Comment: Campu s: M Performed By: #### L 500.36977, L500.81405 ####[facility] [id number] [place], [place] [address]Yr# [phone] GLUCOSE METERon 07-21-2021 Glucose [Mass/Vol] 108 mg/dL Normal 85-125 [facility] Glucose [Mass/Vol] 112 mg/dL Normal 85-125 [facility] Glucose [Mass/Vol] 198 mg/dL High 85-125 [facility] Glucose [Mass/Vol] 162 mg/dL High 85-125 [facility] OR.OPRPTon 07-21-[address] [facility] OR.OPRPT [facility] Patient Name: JOSELINE ELLIS [address] [place] [address] Date of : [address] [address] Unit Number: [id number] Operative Report Patient Status: [facility] Attending Doctor: Rajwinder Stout MD Service Date: 07/21/21 1558 Operative Report Procedure Date: 07/20/21 Attending Physician: Rajwinder Stout MD Procedure: Preoperative Diagnosis: Failed open reduction internal fixation right distal humerus with resultant infection and placement antibiotic spacer Postoperative Diagnosis: Same Procedure Type: Removal antibiotic spacer, right total elbow arthroplasty with cultures Anesthesia: General endotracheal anesthesia Estimated Blood Loss: 150 cc IV Fluids: Crystalloid Complications: None Findings/Specimens: Components used are a Tornier right total elbow arthroplasty small humeral component, small ulnar component Procedure Details: Patient is a 71-year-old female with multiple medical problems who was referred to me by Dr. Guy in [place]. Last fall the patient undergone right distal humeral ORIF. This had failed on x-rays within the first month postoperatively. Patient is a diabetic. Patient was referred to me for total elbow arthroplasty due to the distal nature of the fracture. Patient was taken to the operating room at the end of March and hardware removal was performed. There is moderate amount of serous fluid and I was concerned for infection due to the failure of the hardware. At that time an antibiotic spacer was placed and the wound was closed. Resultant cultures grew MRSA on her aerobic cultures from liquid media as well as staph epi in the bone from liquid media. Patient has had a prolonged course of IV antibiotic treatment. We have been following sed rate and CRP. These have fluctuated. Patient also most recently was positive for UTI and her surgery was postponed. The overall trend was for her inflammatory markers to be decreased from initial presentation. The patient wanted to get out of her extended care facility and wished for surgical intervention. Her skin had look good with no drainage since her surgery. After her surgery was postponed for 1 week after her UTI and this was clear the risk benefits of removal of the spacer and total elbow arthroplasty were explained to the patient and the sister prior to the procedure. Informed consent was obtained. The patient's sister understood that if her intraoperative cultures this time became positive that she would need to be placed back on IV antibiotics and that there was a chance that the elbow could fail. Informed consent was obtained for total elbow arthroplasty. The right arm was marked in the preoperative area as proper operative site. Patient is brought the operating and placed supine on the operating table. Head and neck were positioned by anesthesia staff and monitored by anesthesia throughout the procedure. General anesthesia was induced without complication. Patient was placed in the left lateral decubitus position with the right side up. All bony prominences well-padded. The right upper extremities and prepped and draped in normal's orthopedic fashion. Timeout was performed right arm was identifies proper operative arm. Antibiotics were given prior to skin incision. Incision was made overlying her previous incision we dissected through skin and subcutaneous tissue maintaining careful hemostasis left cautery. As we dissected down the antibiotic spacer block was noted. This was removed. There is just a small amount of serous fluid around the spacer. This was sent for Gram stain and culture. The distal humeral bone was then debrided using a rongeur in order to gain access to the humeral canal. Then using the opening reamer we found the canal easily. We then sequentially reamed and broached for a small humeral component. The small humeral trial was placed and found to be good position. The tip of the ulna was then cut with an oscillating saw. A bur was used to enter the ulnar canal. We then sequentially reamed and chose a small ulnar component. The ulnar component trial was then impacted. The ulna and humerus were then coupled. Were found almost to have near full extension and flexion well past under and 50 degrees. All trials were then removed. The wound was thoroughly irrigated. A sterile tourniquet was applied and the arm was elevated and tourniquet was inflated 250 mmHg for cementation. The canals were then dried. Cement was placed in the ulnar canal after cement restrictor was placed in the ulnar component was impacted in appropriate depth. A cement restrictor was also placed in the humerus. Cement was placed in the humeral component was also impacted appropriate depth. The ulna and humerus were then coupled. The arm was held in extension and cement was allowed to cure. The screws removed a final screw was placed in the tab was placed over this. (more content not included)... Normal [facility] OTARon 07-21-2021 OT Assessment Report [facility] PROG.ORTHOon 07-21-2021 PROG.ORTHO [facility] Patient Name: JOSELINE ELLIS [address] Date of : [address] [address] Unit Number: [id number] Progress Note-Ortho Patient Status: REG SDC Attending Doctor: Rajwinder Stout MD Service Date: 07/21/21 1207 Progress Note - Ortho Subjective S: (2 ROS minimum) Patient is doing well. She states she has had less pain with this surgery than previous. She has baseline numbness and tingling in all digits and states this is unchanged. She is sitting up eating lunch. Objective Nursing Vitals Vital Signs (Last) Result Date Time Pulse Ox 93 07/21 1124 B/P 100/54 07/21 1124 Temp 98.6 07/22 1123 Pulse 68 07/21 1124 Resp 18 07/21 112 O2 Delivery CPAP 07/21 2319 O2 Flow Rate 2L 07/21 2319 General Appearance Awake alert oriented x3. No apparent distress. Physical Exam Right upper extremity splint is clean and dry. She can actively wiggle all fingers. She has some vague numbness and tingling in all 5 digits which she states she had preop. She is able to flex and extend all digits. She is good capillary refill in all digits. Diagnostic Data Lab 24hr (CBC/BMP [facility]) 07/21/21 1117: Whole Bld Glucose 198 H 07/21/21 0639: Whole Bld Glucose 162 H 07/21/21 0519: [Embedded Image Not Available] Anion Gap 11, Est GFR ( Amer) 53, Est GFR (Non-Af Amer) 44, BUN/Creatinine Ratio 24 , Glucose 149 H, Total Calcium 9.0, RBC 3.39 L, MCV 85.5, MCHC 31.7 L, RDW 15.1 H, MPV 10.7, Immature Gran % (Auto) 0.4, Abs Immat Gran (auto) 0.00, Seg Neutrophils % 83.4 H, Lymphocytes % 10.6 L, Monocytes % 4.9, Eosinophils % 0.5, Basophils % 0.2, Neutrophils # 7.20, Lymphocytes # 0.90, Monocytes # 0.40, Eosinophils # 0.00, Basophils # 0.00, Nucleated RBCs 0.0 07/20/212117: Whole Bld Glucose 216 H 07/20/21 181: Whole Bld Glucose 205 H 07/20/21 1252: SARS-CoV-2 (PCR) NEGATIVE Assessment/Plan Conclusion 1. Nonunion of fracture of humerus 2. Humerus fracture 3. Atrial fibrillation 4. Hypertension 5. Diabetes 6. Obesity 7. Elevated serum creatinine 8. Hardware failure 9. Anemia Stable Problems Problems not specifically addressed in the above plan are stable and do not warrant adjustment of the current method of therapy. Stay Reason/Anticipated Disch Awaiting Placement Physician Attestation Statement of Attestation 71-year-old female postop day #1 status post right total elbow arthroplasty. Cultures are negative to date. This was discussed with patient will have to follow these until they are final. She can be discharged back to [facility]. She is nonweightbearing in the right upper extremity. Patient is to follow-up in the office in 2 weeks. At that point we will place her in a hinged elbow and start range of motion. Appreciate medical management. ERG I confirm that I have evaluated the patient, reviewed the history and physical, medications, diagnostic results, physical exam, assessment and plan of care of the patient. Disclaimer This dictation was created using voice recognition software. Phonetic and/or minor grammatical errors may exist. eSign Date and Time Rajwinder Stout MD Verified/Reviewed by 07/21/21 1209 [facility] Progress Note-Ortho [facility] PTARon 07-21-2021 PT Assessment Report [facility] [place]-20[place] Prog/Sign Off Note-Hospitalist [facility] Patient Name: JOSELINE ELLIS [address] Date of : [address] [address] Unit Number: [id number] Prog/Sign Off Note-Hospitalist Patient Status: REG SDC Attending Doctor: Rajwinder Stout MD Service Date: 07/21/21 1119 Subjective S: (2 ROS minimum) Pt POD #1 doing well. No active issues. Pt to be dc today. Objective (ROS) Nursing Vitals Vital Signs (Last) Result Date Time Pulse Ox 94 07/21 2319 B/P 165/57 07/21 2319 O2 Delivery CPAP 07/21 2319 O2 Flow Rate 2L 07/21 2319 Temp 97.6 07/21 2319 Pulse 69 07/21 2319 Resp 20 07/21 2319 Physical Exam Physical Examination Notes Constitutional - Patient appears chronically ill, appropriate, alert. Eyes - Anicteric, normal conjunctiva. ENT - Head normocephalic,atraum atic. Oral mucosa pink and moist. Neck supple, trachea midline. Cardiovascular - Heart is regular rate and rhythm. No gallops, rubs, murmurs noted. No evidence of carotid bruit heard. Respiratory - nonlabored, regular, even. Clear to auscultation. Skin - Appears warm, dry, intact. Gastrointestinal - Abdomen soft, bowel sounds present, nontender. No guarding or rebounding noted. Genitourinary - Not examined Lymph - No gross lymphadenopathy noted. Musculoskeletal - Grasps appear moderate in strength and equal. Pulses are +2. No edema noted. Right upper extremity dressing dry and intact no shadowing noted Neurologic - Patient is alert and oriented and appropriate 3. Speech is clear. No facial droop noted. Psychiatric - Patient appears calm, no anxiety or depression noted. Assessment and Plan Conclusion 1. Atrial fibrillation 1. Atrial fibrillation Continue metoprolol, resume Eliquis when okay with surgery 2. Hypertension Continue antihypertensives as at home 3. Diabetes Accu-Cheks before meals and at bedtime, cover sliding scale insulin continue home medications 4. Anemia Continue iron supplementation 5. Hardware failure Status post removal of antibiotic spacer and right total elbow. Surgery managing. DVT and GI prophylaxis per surgeon PT to be dc today per primary service. Medicine will sign off. DC Disposition Plan Dc per primary service Disclaimer This dictation was created using voice recognition software. Phonetic and/or minor grammatical errors may exist. eSign Date and Time Chana Foreman MD Verified/Reviewed by 07/21/21 [facility]1 [facility] 2 VWS RTon 07-20-2021 ELBOW AP AND LAT 2 VWS RT RIGHT ELBOW 2 VIEWS PORTABLE: Clinical Statement: Postop Comparison: None FINDINGS: Patient is status post replacement of the elbow joint. There are multiple fragments anterior and radial with some posterior displacement., Originating from the distal humerus. The radius and olecranon process appear intact. IMPRESSION: Status post total elbow arthroplasty. There are multiple large osseous fragments anterior and ulnar in location, derived from the distal humerus. This report was electronically signed by Nadja Benito MD 07/21/2021 3:28 PM Reported By: NADJA BENITO M.D. Signed By: NADJA BENITO M.D. [facility] GLUCOSE METERon 07-20-2021 Glucose [Mass/Vol] 216 mg/dL High 85-125 [facility] Glucose [Mass/Vol] 205 mg/dL High 85-125 [facility] Glucose [Mass/Vol] 139 mg/dL High 85-125 [facility] HP.Delvin 07-20-2021 CONSULTATION-H&P [facility] Patient Name: JOSELINE ELLIS [address] Date of : [address] [address] Unit Number: [id number] CONSULTATION-HandP Patient [place] [facility] Attending Doctor: Rajwinder Stout MD Service Date: 07/20/21 1509 History of Present Illness Referring Physician Rajwinder Stout MD Consulted Provider Chana Foreman MD Source of Information Other, Patient Reason for Consult medical management History of Present Illness Patient is a 71-year-old female with a past medical history significant for hypertension, hyperlipidemia, diabetes, paroxysmal A. fib who is being admitted to [facility] for removal of antibiotic spacer and right total elbow by Dr. Stout. Patient fell in early January 2021 with right distal humerus fracture. Patient underwent ORIF of right upper extremity on 02/26/2021. Postoperative course was complicated by hardware failure. Patient was seen by Ortho and had an antibiotic spacer placed on 04/13/2021. Patient was discharged on p.o. Bactrim. Patient returns today for antibiotic spacer removal and right total elbow by Dr. Stout. Patient seen and evaluated postoperatively in PACU. Patient is drowsy, arousable, follows commands and answers questions appropriately. Denies pain at this time. Denies chest pain, shortness of breath, dizziness, nausea, or vomiting. We have been asked to see for medical management. Past Medical/Surgical Hx Past Medical History Diabetes Atrial fibrillation HTN CVA Anxiety Depression Sleep apnea breast lump Osteopenia History of right distal humerus fracture Past Surgical History ORIF right humerus Hysterectomy Back surgery Family/Social History Family Hx Other/Comment Family history of diabetes and heart disease Substances Denies use of: Alcohol, Tobacco, Recreational Drugs. Social Hx Currently resides at [facility] Advance Directives Advance Directives Full Code Allergies/Home Medications Allergies Coded Allergies: FOSINOPRIL (Intermediate, 04/10/21) PIOGLITAZONE (Intermediate, 04/10/21) Uncoded Allergies: .DENIES OXYCODONE ALLERGY (07/20/21) Home Medications Amlodipine Besylate 10 MG TABLET 10 MG PO QAM, Ref 0 (Reported) Entered as Reported by NACHO GIBSON on 04/06/21 1328 Last Action: Reviewed on 07/20/21 0853 by KATARZYNA MORTON Apixaban (Eliquis) 5 MG TABLET 5 MG PO BID, Ref 0 (Reported) WILL VERIFY WHEN TO STOP PRIOR SURGERY Entered as Reported by NACHO GIBSON on 04/07/21 1134 Last Action: Reviewed on 07/20/21 0853 by KATARZYNA MORTON Cefdinir* (Omnicef Cap*) 300 MG CAPSULE 300 MG PO BID, Ref 0 (Reported) Entered as Reported by NACHO GIBSON on 07/06/21 1433 Last Action: Reviewed on 07/20/21 0853 by KATARZYNA MORTON Doxycycline Hyclate 100 MG CAPSULE 100 MG PO BID, Ref 0 (Reported) LAST DOSE 07/07 Entered as Reported by NACHO GIBSON on 07/06/21 1432 Last Action: Reviewed on 07/20/21 0853 by KATARZYNA MORTON Ferrous Sulfate 325 MG TABLET 325 MG PO QAM, Ref 0 (Reported) Entered as Reported by NACHO GIBSON on 04/06/21 1326 Last Action: Reviewed on 07/20/21 0853 by KATARZYNA MORTON Furosemide (Lasix) (Furosemide 40MG Tablet) 40 MG UDTAB 40 MG PO QAM, Ref 0 (Reported) Entered as Reported by NACHO GIBSON on 04/06/21 1328 Last Action: Reviewed on 07/20/21 0853 by KATARZYNA MORTON Glimepiride* (Amaryl 2MG Tab*) 2 MG TAB 2 MG PO QDAYWM, Ref 0 (Reported) Entered as Reported by NACHO GIBSON on 04/06/21 1331 Last Action: Reviewed on 07/20/21 0853 by KATARZYNA MORTON HYDROcodone BIT/APAP* (Upper Tract 5-325 Tab*) 1 EACH TABLET 1 EACH PO Q4-6HPRN PRN POST OP PAIN #30, Ref 0 (Reported) Entered as Reported by CHAO HENAO on 04/17/21 1207 Last Action: Reviewed on 07/20/21852 by KATARZYNA MORTON Linagliptin (Tradjenta) 5 MG TABLET 5 MG PO QAM, Ref 0 (Reported) Entered as Reported by NACHO GIBSON on 04/07/21 1136 Last Action: Reviewed on 07/20/21852 by KATARZYNA MORTON Losartan Potassium (Cozaar) (Cozaar 50 MG Tablet) 50 MG TABLET 50 MG PO BID, Ref 0 ( Reported) Entered as Reported by NACHO GIBSON on 04/06/211328 Last Action: Reviewed on 07/20/21852 by KATARZYNA MORTON Metformin HCl (Metformin HCl ER) 1,000 MG [id number] 1,000 MG PO BID, Ref 0 (Reported) Entered as Reported by NACHO GIBSON on 04/06/211328 Last Action: Reviewed on 07/20/21852 by KATARZYNA MORTON Metoprolol Tartrate (Lopressor) 50 MG TABLET 50 MG PO QAM, Ref 0 (Reported) Entered as Reported by NACHO GIBSON on 04/06/211326 Last Action: Reviewed on 07/20/21852 by KATARZYNA MORTON Oxybutynin Chloride (Ditropan XL Tab) 15 MG TAB.ER.24 15 MG PO QDAY, Ref 0 ( Reported) Entered as Reported by NACHO GIBSON on 04/06/211326 Last Action: Reviewed on 07/20/21852 by KATARZYNA MORTON Sennosides/Docusate Sodium (Senna-Docusate Sodium Tablet) 1 EACH TABLET 2 EACH PO QHSPRN PRN CONSTIPATION, Ref 0 (Reported) Entered as Reported by NACHO GIBSON on 04/07/21 113 Last Act (more content not included)... Normal [facility] MRSA PCRon 07-20-2021 MRSA PCR Negative Normal NEGATIVE [facility] Comment on above: Order Comment: Trung s: M Result Comment: WINSTON FRANCO NOTE: TESTING DONE BY PCR TECHNOLOGY. The SA Nasal complete MRSA assay on the [employer] GeneXpert has not been validated for use on patients under 21 years of age. All patients under 21 years of age, run on the GeneXpert will be confirmed by a Blood Dauphin plate, followed by an LATISHA, to confirm MRSA. Performed By: #### L 200.27227 #### [facility] [address] [place] [address] SA PCR Negative Normal NEGATIVE [facility] Comment on above: Order Comment: Trung s: M Result Comment: WINSTON FRANCO NOTE: TESTING DONE BY PCR TECHNOLOGY. Performed By: #### L 200.10804 #### [facility] [address] [place] [address] PATIENT RETYPEon 07-20-2021 RETYPE INTERP Positive Normal [facility] [id number] 07-20-2021 SARS-CoV-2 (COVID-19) RNA ADE+probe Ql (Unsp spec) Negative Invalid Interpretation Code Negative [facility] Comment on above: Order Comment: Trung serna: [place] Result Comment: RESU LTS CALLED TO AND READ BACK BY UDAY GRIMES AT 1448 07/20/21 BY CHERELLE TAM Negative results do not preclude SARS-CoV-2 infection and should not be used as the sole basis for treatment or other patient management decisions. Negative results must be combined with clinical observation, patient history, and epidemiological information. This test was performed by PCR. Performed By: #### L 500.08687, L500.53215 #### [facility] [address] [place], [place] [id number] TSon 07-20-2021 ABO and Rh group Nom (Bld) Blood group A Rh(D) positive Normal [facility] Comment on above: Order Comment: Trung serna: M Absolute lymphocyte counton 07-18-2021 Lymphocytes Auto (Unsp spec) [#/Vol] 1.93 10*3/uL 0.83-4.51 [facility] Work Phone: Basophil percentageon 2021 Basophils (Bld) [#/Vol] 7.4 10*3/uL 4.4-11.0 [facility] Work Phone: [phone] Basophils (Bld) [#/Vol] 4.7 10*3/uL 2.0-7.7 [facility] Work Phone: [phone] Basophils/100 WBC (Bld) 0.5 % 0-1 [facility] Work Phone: [phone] Basophils/100 WBC (Bld) 62.6 % 47-70 [facility] Work Phone: [phone] Basophils/100 WBC (Bld) 4.6 % 0-5 [facility] Work Phone: [phone] Eosinophils/100 WBC (Bld) 4.6 % 0-5 [facility] Work Phone: [phone] Neutrophils (Bld) [#/Vol] 4.7 10*3/uL 2.0-7.7 [facility] Work Phone: Neutrophils/100 WBC (Bld) 62.6 % 47-70 [facility] Work Phone: [phone] WBC (Bld) [#/Vol] 7.4 10*3/uL 4.4-11.0 [facility] Work Phone: Blood erythrocytes count (nu mber/volume)on 07-18-2021 RBC (Bld) [#/Vol] 3.81 10*6/uL 4.2-5.4 [facility] Work Phone: Blood hemoglobin measurement (mass/volume)on 07-18-2021 Hemoglobin (Bld) [Mass/Vol] 10.3 g/dL 12.0-15.0 [facility] Work Phone: Blood lymphocytes/100 leukoc yteson 07-18-2021 Lymphocytes/100 WBC (Bld) 26.0 % 19-41 [facility] Work Phone: [phone] Blood monocytes/100 leukocyt eson 07-18-2021 Monocytes/100 WBC (Bld) 5.9 % 0-10 [facility] Work Phone: Blood platelet mean volumeon 07-18-2021 Platelet mean volume (Bld) [Entitic vol] 10.6 fL 6.2-12.0 [facility] Work Phone: Determination of erythrocyte mean corpuscular volume (MCV)on 07-18-2021 MCV (RBC) [Entitic vol] 85.8 fL 81-99 [facility] Work Phone: Hematocrit Auto (Bld) [Volum e fraction]on 07-18-2021 Hematocrit (Bld) [Volume fraction] 32.7 % 37-47 [facility] Work Phone: Laboratory - Hematology and Cell countson 07-18-2021 Erythrocyte distribution width (RBC) [Entitic vol] 48.2 fL 35.1-43.9 [facility] Work Phone: Erythrocyte distribution width (RBC) [Ratio] 15.3 % 11.6-14.6 [facility] Work Phone: Immature granulocytes/100 WBC (Bld) 0.400 % 0.0-0.9 [facility] Work Phone: Comment on above: IG% - Immature Granu locytes (promyelocytes, myelocytes and metamyelocytes) > 1% indicates that a LEFT SHIFT is Present. MCH (RBC) [Entitic mass] 27.0 pg 27.0-32.0 [facility] Work Phone: Nucleated RBC/100 WBC (Bld) [Ratio] 0 % 0-5 [facility] Work Phone: MCHC Auto (RBC) [Mass/Vol]on 07-18-2021 MCHC (RBC) [Mass/Vol] 31.5 g/dL 32-36 [facility] Work [facility]: No Panel Informationon 07-18 27.0 pg 27.0-32.0 [facility] Work Phone: 15.3 % 11.6-14.6 [facility] Work Phone: 48.2 fl 35.1-43.9 [facility] Work Phone: 0.400 % 0.0-0.9 [facility] Work Phone: 0 % 0-5 [facility] Work Phone: Platelets bldon 07-18-2021 Platelets (Bld) [#/Vol] 244 10*3/uL 150-450 [facility] Work Phone: Whole blood hemoglobin A1c/t otal hemoglobin ratio (mass fraction)on 07-18-2021 HbA1c (Bld) [Mass fraction] 6.1 % 3.8-5.6 [facility] Work Phone: Comment on above: Normal < 5.7 % Predi abetic 5.7 - 6.4 % Diabetic >or= 6.5 % Please note range changes. Bacteria identified Cx Nom ( U)on 07-15-2021 Culture, urine Escherichia coli [facility] Work Phone: Basophil percentageon 2021 Basophil percentage 0-5 SEEN /hpf 0-5 [facility] Work Phone: Bilirubin Test strip Ql (U)o n 07-15-2021 Bilirubin Ql (U) Negative Negative [facility] Work Phone: Culture, urineon 07-15-2021 Bacteria identified Cx Nom (U) Escherichia coli [facility] Work Phone: Ketones Test strip Ql (U)on 07-15-2021 Ketones Ql (U) Negative Negative [facility] Work Phone: Mucus LM Ql (Urine sed)on Mucus Ql (Urine sed) 0 SEEN /hpf [facility] Work Phone: Nitrite Test strip Ql (U)on 07-15-2021 Nitrite Ql (U) Positive Negative [facility] Work Phone: Protein Test strip Ql (U)on 07-15-2021 Protein Ql (U) Negative Negative [facility] Work Phone: Squamous epithelial cells de tection in urine sediment by light microscopyon 07-15-2021 Epithelial cells.squamous LM Ql (Urine sed) 0-5 SEEN /hpf 5-10 [facility] Work Phone: Urine blood detectionon 03-0 RBC Ql (U) Negative Negative [facility] Work Phone: RBC Ql (U) 0 SEEN /hpf 0-5 [facility] Work Phone: Urine clarityon 07-15-2021 Clarity (U) Sl. Cloudy Clear [facility] Work Phone: Urine color determinationon 07-15-2021 Color (U) Yellow Yellow [facility] Work Phone: Urine glucose detectionon Glucose Ql (U) Normal mg/dl Normal [facility] Work Phone: Urine leukocyte esterase det ection by dipstickon 07-15-2021 Leukocyte esterase Test strip Ql (U) 25 /ul Negative [facility] Work Phone: Urine pHon 07-15-2021 pH (U) 5.0 [pH] 5.0 - 8.0 [facility] Work Phone: Urine sediment bacteria coun t by microscopy (number/high power field)on 07-15-2021 Bacteria LM.HPF (Urine sed) [#/Area] 3 /[HPF] None Seen [facility] Work Phone: Urine specific gravity measu rementon 07-15-2021 Specific gravity (U) [Rel density] 1.015 1.002-1.030 [facility] Work Phone: Urobilinogen Auto test strip Ql (U)on 07-15-2021 Urobilinogen Ql (U) Normal mg/dl Normal [facility] Work Phone: Basophil percentageon 2021 Basophil percentage 102 mg/dL 74-106 [facility] Work Phone: Basophil percentage 138 mmol/L 136-145 [facility] Work Phone: Basophil percentage 4.3 mmol/L 3.5-5.1 [facility] Work Phone: Basophil percentage 106 mmol/L 98-107 [facility] Work Phone: Basophils (Bld) [#/Vol] 9.5 10*3/uL 4.4-11.0 [facility] Work Phone: Chloride [Moles/Vol] 106 mmol/L 98-107 [facility] Work Phone: Glucose [Mass/Vol] 102 mg/dL 74-106 [facility] Work Phone: Comment on above: Fasting Glucose resu lt from 100 to 125 mg/dL suggests IMPAIRED HOMEOSTASIS per A.D.A. criteria. Potassium [Moles/Vol] 4.3 mmol/L 3.5-5.1 [facility] Work Phone: Sodium [Moles/Vol] 138 mmol/L 136-145 [facility] Work Phone: WBC (Bld) [#/Vol] 9.5 10*3/uL 4.4-11.0 [facility] Work Phone: Blood erythrocytes count (nu mber/volume)on 07-14-2021 RBC (Bld) [#/Vol] 4.18 10*6/uL 4.2-5.4 [facility] Work Phone: Blood hemoglobin measurement (mass/volume)on 07-14-2021 Hemoglobin (Bld) [Mass/Vol] 11.4 g/dL 12.0-15.0 [facility] Work Phone: Blood platelet mean volumeon 07-14-2021 Platelet mean volume (Bld) [Entitic vol] 10.4 fL 6.2-12.0 [facility] Work Phone: Determination of erythrocyte mean corpuscular volume (MCV)on 07-14-2021 MCV (RBC) [Entitic vol] 84.2 fL 81-99 [facility] Work Phone: Erythrocyte sedimentation ra dago 07-14-2021 ESR (Bld) [Velocity] 44 mm/h 0-30 [facility] Work Phone: Hematocrit Auto (Bld) [Volum e fraction]on 07-14-2021 Hematocrit (Bld) [Volume fraction] 35.2 % 37-47 [facility] Work Phone: Laboratory - Chemistry and C hemistry - challengeon 07-14-2021 CK [Catalytic activity/Vol] 29 U/L 26-192 [facility] Work Phone: CO2 [Moles/Vol] 28.0 mmol/L 21.0-32.0 [facility] Work Phone: Urea nitrogen/Creatinine [Mass ratio] 18.2 mg/mg 10-20 [facility] Work Phone: Laboratory - Hematology and Cell countson 07-14-2021 Erythrocyte distribution width (RBC) [Entitic vol] 45.5 fL 35.1-43.9 [facility] Work Phone: Erythrocyte distribution width (RBC) [Ratio] 15.0 % 11.6-14.6 [facility] Work Phone: MCH (RBC) [Entitic mass] 27.3 pg 27.0-32.0 [facility] Work Phone: MCHC Auto (RBC) [Mass/Vol]on 07-14-2021 MCHC (RBC) [Mass/Vol] 32.4 g/dL 32-36 [facility] Work Phone: No Panel Informationon 07-14 Estimated GFR (MDRD) Amer 41 mL/min >60 [facility] Work Phone: Comment on above: GFR Calc Estimated GFR (MDRD) Non-Af Amer 34 mL/min >60 [facility] Work Phone: Comment on above: Non- GFR Calc 27.3 pg 27.0-32.0 [facility] Work Phone: 15.0 % 11.6-14.6 [facility] Work Phone: 45.5 fl 35.1-43.9 [facility] Work Phone: 34 mL/min >60 [facility] Work Phone: 41 mL/min >60 [facility] Work Phone: 18.2 RATIO 10-20 [facility] Work Phone: 29 U/L 26-192 [facility] Work Phone: 28.0 mmol/L 21.0-32.0 [facility] Work Phone: Platelets bldon 07-14-2021 Platelets (Bld) [#/Vol] 284 10*3/uL 150-450 [facility] Work Phone: Serum or plasma C reactive p rotein measurement (mass/volume)on 07-14-2021 CRP [Mass/Vol] 5.75 mg/L 0.0-3.0 [facility] Work Phone: Comment on above: C-Reactive Protein ( CRP) provides useful information for thediagnosis, therapy and monitoring of inflammatory processesand associated diseases. For the evaluation of Relative Riskfor Cardiovascular Disease, a High Sensitivity CRP (HSCRP)should be ordered. Serum or plasma calcium keyona urement (mass/volume)on 07-14-2021 Calcium [Mass/Vol] 10.2 mg/dL 8.5-10.1 [facility] Work Phone: Serum or plasma creatinine m easurement (mass/volume)on 07-14-2021 Creatinine [Mass/Vol] 1.59 mg/dL 0.55-1.02 [facility] Work Phone: Comment on above: The validity of the calculated GFR & GFRAA in patients over 70 years has not been determined. Clinical correlation is essential. Serum or plasma urea nitroge n measurement (mass/volume)on 07-14-2021 Urea nitrogen [Mass/Vol] 29 mg/dL 7-18 [facility] Work Phone: Thin prep Papanicolaou smear with manual screeningon 07-14-2021 Thin prep Papanicolaou smear with manual screening 4 5-15 [facility] Work Phone: Basophil percentageon 2021 Basophil percentage 77 mg/dL 74-106 [facility] Work Phone: Basophil percentage 141 mmol/L 136-145 [facility] Work Phone: Basophil percentage 4.0 mmol/L 3.5-5.1 [facility] Work Phone: Basophil percentage 106 mmol/L 98-107 [facility] Work Phone: Basophils (Bld) [#/Vol] 6.9 10*3/uL 4.4-11.0 [facility] Work Phone: Chloride [Moles/Vol] 106 mmol/L 98-107 [facility] Work Phone: Glucose [Mass/Vol] 77 mg/dL 74-106 [facility] Work Phone: Potassium [Moles/Vol] 4.0 mmol/L 3.5-5.1 [facility] Work Phone: Sodium [Moles/Vol] 141 mmol/L 136-145 [facility] Work Phone: WBC (Bld) [#/Vol] 6.9 10*3/uL 4.4-11.0 [facility] Work Phone: Blood erythrocytes count (nu mber/volume)on 07-07-2021 RBC (Bld) [#/Vol] 3.57 10*6/uL 4.2-5.4 [facility] Work Phone: Blood hemoglobin measurement (mass/volume)on 07-07-2021 Hemoglobin (Bld) [Mass/Vol] 9.7 g/dL 12.0-15.0 [facility] Work Phone: Blood platelet mean volumeon 07-07-2021 Platelet mean volume (Bld) [Entitic vol] 10.6 fL 6.2-12.0 [facility] Work Phone: Determination of erythrocyte mean corpuscular volume (MCV)on 07-07-2021 MCV (RBC) [Entitic vol] 84.3 fL 81-99 [facility] Work Phone: Erythrocyte sedimentation ra dago 07-07-2021 ESR (Bld) [Velocity] 33 mm/h 0-30 [facility] Work Phone: Hematocrit Auto (Bld) [Volum e fraction]on 07-07-2021 Hematocrit (Bld) [Volume fraction] 30.1 % 37-47 [facility] Work Phone: Laboratory - Chemistry and C hemistry - challengeon 07-07-2021 CK [Catalytic activity/Vol] 26 U/L 26-192 [facility] Work Phone: CO2 [Moles/Vol] 27.0 mmol/L 21.0-32.0 [facility] Work Phone: Urea nitrogen/Creatinine [Mass ratio] 21.8 mg/mg 10-20 [facility] Work Phone: Laboratory - Hematology and Cell countson 07-07-2021 Erythrocyte distribution width (RBC) [Entitic vol] 46.5 fL 35.1-43.9 [facility] Work Phone: Erythrocyte distribution width (RBC) [Ratio] 15.3 % 11.6-14.6 [facility] Work Phone: MCH (RBC) [Entitic mass] 27.2 pg 27.0-32.0 [facility] Work Phone: MCHC Auto (RBC) [Mass/Vol]on 07-07-2021 MCHC (RBC) [Mass/Vol] 32.2 g/dL 32-36 [facility] Work Phone: No Panel Informationon 07-07 Estimated GFR (MDRD) Amer 47 mL/min >60 [facility] Work Phone: Comment on above: GFR Calc Estimated GFR (MDRD) Non-Af Amer 39 mL/min >60 [facility] Work Phone: Comment on above: Non- GFR Calc 27.2 pg 27.0-32.0 [facility] Work Phone: [phone] 15.3 % 11.6-14.6 [facility] Work Phone: [phone] 46.5 fl 35.1-43.9 [facility] Work Phone: 39 mL/min >60 [facility] Work Phone: 47 mL/min >60 [facility] Work Phone: 21.8 RATIO 10-20 [facility] Work Phone: 26 U/L 26-192 [facility] Work Phone: 27.0 mmol/L 21.0-32.0 [facility] Work Phone: Platelets bldon 07-07-2021 Platelets (Bld) [#/Vol] 215 10*3/uL 150-450 [facility] Work Phone: Serum or plasma C reactive p rotein measurement (mass/volume)on 07-07-2021 CRP [Mass/Vol] 6.35 mg/L 0.0-3.0 [facility] Work Phone: Comment on above: C-Reactive Protein ( CRP) provides useful information for thediagnosis, therapy and monitoring of inflammatory processesand associated diseases. For the evaluation of Relative Riskfor Cardiovascular Disease, a High Sensitivity CRP (HSCRP)should be ordered. Serum or plasma calcium keyona urement (mass/volume)on 07-07-2021 Calcium [Mass/Vol] 9.3 mg/dL 8.5-10.1 [facility] Work Phone: Serum or plasma creatinine m easurement (mass/volume)on 07-07-2021 Creatinine [Mass/Vol] 1.42 mg/dL 0.55-1.02 [facility] Work Phone: Comment on above: The validity of the calculated GFR & GFRAA in patients over 70 years has not been determined. Clinical correlation is essential. Serum or plasma urea nitroge n measurement (mass/volume)on 07-07-2021 Urea nitrogen [Mass/Vol] 31 mg/dL 7-18 [facility] Work Phone: Thin prep Papanicolaou smear with manual screeningon 07-07-2021 Thin prep Papanicolaou smear with manual screening 8 5-15 [facility] Work Phone: Basophil percentageon 2021 Basophil percentage 25-50 SEEN /hpf [facility] Work Phone: Bilirubin Test strip Ql (U)o n 07-01-2021 Bilirubin Ql (U) Negative Negative [facility] Work Phone: Ketones Test strip Ql (U)on 07-01-2021 Ketones Ql (U) Negative Negative [facility] Work Phone: Magnesium ammonium phosphate crystal detectionon 07-01-2021 Triple phosphate crystals LM Ql (Urine sed) 1+ /hpf [facility] Work Phone: Mucus LM Ql (Urine sed)on Mucus Ql (Urine sed) 0 SEEN /hpf [facility] Work Phone: Nitrite Test strip Ql (U)on 07-01-2021 Nitrite Ql (U) Positive Negative [facility] Work Phone: Protein Test strip Ql (U)on 07-01-2021 Protein Ql (U) 15 mg/dl Negative [facility] Work Phone: Squamous epithelial cells de tection in urine sediment by light microscopyon 07-01-2021 Epithelial cells.squamous LM Ql (Urine sed) 0-5 SEEN /hpf [facility] Work Phone: Urine blood detectionon 06-16 RBC Ql (U) Negative Negative [facility] Work Phone: RBC Ql (U) 0 SEEN /hpf [facility] Work Phone: Urine clarityon 07-01-2021 Clarity (U) Sl. Cloudy Clear [facility] Work Phone: Urine color determinationon 07-01-2021 Color (U) Yellow Yellow [facility] Work Phone: Urine glucose detectionon Glucose Ql (U) Normal mg/dl Normal [facility] Work Phone: Urine leukocyte esterase det ection by dipstickon 07-01-2021 Leukocyte esterase Test strip Ql (U) 500 /ul Negative [facility] Work Phone: Urine pHon 07-01-2021 pH (U) 9.0 [pH] [facility] Work Phone: Urine sediment bacteria coun t by microscopy (number/high power field)on 07-01-2021 Bacteria LM.HPF (Urine sed) [#/Area] 2 /[HPF] None Seen [facility] Work Phone: Urine specific gravity measu rementon 07-01-2021 Specific gravity (U) [Rel density] 1.015 [facility] Work Phone: Urobilinogen Auto test strip Ql (U)on 07-01-2021 Urobilinogen Ql (U) Normal mg/dl Normal [facility] Work Phone: Bacteria identified Cx Nom ( U)on 06-30-2021 Culture, urine Proteus mirabilis [facility] Work Phone: Basophil percentageon 2021 Basophil percentage 102 mg/dL 74-106 [facility] Work Phone: Basophil percentage 140 mmol/L 136-145 [facility] Work Phone: Basophil percentage 4.1 mmol/L 3.5-5.1 [facility] Work Phone: Basophil percentage 107 mmol/L 98-107 [facility] Work Phone: Basophils (Bld) [#/Vol] 6.3 10*3/uL 4.4-11.0 [facility] Work Phone: Chloride [Moles/Vol] 107 mmol/L 98-107 [facility] Work Phone: Glucose [Mass/Vol] 102 mg/dL 74-106 [facility] Work Phone: Comment on above: Fasting Glucose resu lt from 100 to 125 mg/dL suggests IMPAIRED HOMEOSTASIS per A.D.A. criteria. Potassium [Moles/Vol] 4.1 mmol/L 3.5-5.1 [facility] Work [facility]: Sodium [Moles/Vol] 140 mmol/L 136-145 [facility] Work Phone: WBC (Bld) [#/Vol] 6.3 10*3/uL 4.4-11.0 [facility] Work Phone: Blood erythrocytes count (nu mber/volume)on 06-30-2021 RBC (Bld) [#/Vol] 3.70 10*6/uL 4.2-5.4 [facility] Work Phone: Blood hemoglobin measurement (mass/volume)on 06-30-2021 Hemoglobin (Bld) [Mass/Vol] 10.1 g/dL 12.0-15.0 [facility] Work Phone: Blood platelet mean volumeon 06-30-2021 Platelet mean volume (Bld) [Entitic vol] 10.8 fL 6.2-12.0 [facility] Work Phone: Culture, urineon 02-15-2022 Bacteria identified Cx Nom (U) Proteus mirabilis [facility] Work Phone: Determination of erythrocyte mean corpuscular volume (MCV)on 06-30-2021 MCV (RBC) [Entitic vol] 85.7 fL 81-99 [facility] Work Phone: Erythrocyte sedimentation ra dago 06-30-2021 ESR (Bld) [Velocity] 31 mm/h 0-30 [facility] Work Phone: Hematocrit Auto (Bld) [Volum e fraction]on 06-30-2021 Hematocrit (Bld) [Volume fraction] 31.7 % 37-47 [facility] Work Phone: Laboratory - Chemistry and C hemistry - challengeon 06-30-2021 CK [Catalytic activity/Vol] 27 U/L 26-192 [facility] Work Phone: CO2 [Moles/Vol] 29.0 mmol/L 21.0-32.0 [facility] Work Phone: Urea nitrogen/Creatinine [Mass ratio] 27.6 mg/mg 10-20 [facility] Work Phone: Laboratory - Hematology and Cell countson 06-30-2021 Erythrocyte distribution width (RBC) [Entitic vol] 48.1 fL 35.1-43.9 [facility] Work Phone: Erythrocyte distribution width (RBC) [Ratio] 15.3 % 11.6-14.6 [facility] Work Phone: MCH (RBC) [Entitic mass] 27.3 pg 27.0-32.0 [facility] Work Phone: MCHC Auto (RBC) [Mass/Vol]on 06-30-2021 MCHC (RBC) [Mass/Vol] 31.9 g/dL 32-36 [facility] Work Phone: No Panel Informationon 06-30 Estimated GFR (MDRD) Amer 50 mL/min >60 [facility] Work Phone: Comment on above: GFR Calc Estimated GFR (MDRD) Non-Af Amer 42 mL/min >60 [facility] Work Phone: Comment on above: Non- GFR Calc 27.3 pg 27.0-32.0 [facility] Work Phone: 15.3 % 11.6-14.6 [facility] Work Phone: 48.1 fl 35.1-43.9 [facility] Work Phone: 42 mL/min >60 [facility] Work Phone: 50 mL/min >60 [facility] Work Phone: 27.6 RATIO 10-20 [facility] Work Phone: 27 U/L 26-192 [facility] Work Phone: 29.0 mmol/L 21.0-32.0 [facility] Work Phone: Platelets bldon 06-30-2021 Platelets (Bld) [#/Vol] 224 10*3/uL 150-450 [facility] Work Phone: Serum or plasma C reactive p rotein measurement (mass/volume)on 06-30-2021 CRP [Mass/Vol] 7.01 mg/L 0.0-3.0 [facility] Work Phone: Comment on above: C-Reactive Protein ( CRP) provides useful information for thediagnosis, therapy and monitoring of inflammatory processesand associated diseases. For the evaluation of Relative Riskfor Cardiovascular Disease, a High Sensitivity CRP (HSCRP)should be ordered. Serum or plasma calcium keyona urement (mass/volume)on 06-30-2021 Calcium [Mass/Vol] 9.2 mg/dL 8.5-10.1 [facility] Work Phone: Serum or plasma creatinine m easurement (mass/volume)on 06-30-2021 Creatinine [Mass/Vol] 1.34 mg/dL 0.55-1.02 [facility] Work Phone: Comment on above: The validity of the calculated GFR & GFRAA in patients over 70 years has not been determined. Clinical correlation is essential. Serum or plasma urea nitroge n measurement (mass/volume)on 06-30-2021 Urea nitrogen [Mass/Vol] 37 mg/dL 7-18 [facility] Work Phone: Thin prep Papanicolaou smear with manual screeningon 06-30-2021 Thin prep Papanicolaou smear with manual screening 4 5-15 [facility] Work Phone: Basophil percentageon 2021 Basophil percentage 112 mg/dL 74-106 [facility] Work Phone: [phone] Basophil percentage 140 mmol/L 136-145 [facility] Work Phone: Basophil percentage 3.7 mmol/L 3.5-5.1 [facility] Work Phone: [phone] Basophil percentage 104 mmol/L 98-107 [facility] Work Phone: [phone] Basophils (Bld) [#/Vol] 8.1 10*3/uL 4.4-11.0 [facility] Work Phone: Chloride [Moles/Vol] 104 mmol/L 98-107 [facility] Work Phone: [phone] Glucose [Mass/Vol] 112 mg/dL 74-106 [facility] Work Phone: Comment on above: Fasting Glucose resu lt from 100 to 125 mg/dL suggests IMPAIRED HOMEOSTASIS per A.D.A. criteria. Potassium [Moles/Vol] 3.7 mmol/L 3.5-5.1 [facility] Work Phone: Sodium [Moles/Vol] 140 mmol/L 136-145 [facility] Work Phone: [phone] WBC (Bld) [#/Vol] 8.1 10*3/uL 4.4-11.0 [facility] Work Phone: [phone] Blood erythrocytes count (nu mber/volume)on 06-23-2021 RBC (Bld) [#/Vol] 3.57 10*6/uL 4.2-5.4 [facility] Work Phone: Blood hemoglobin measurement (mass/volume)on 06-23-2021 Hemoglobin (Bld) [Mass/Vol] 9.8 g/dL 12.0-15.0 [facility] Work Phone: Blood platelet mean volumeon 06-23-2021 Platelet mean volume (Bld) [Entitic vol] 10.9 fL 6.2-12.0 [facility] Work Phone: Determination of erythrocyte mean corpuscular volume (MCV)on 06-23-2021 MCV (RBC) [Entitic vol] 86.0 fL 81-99 [facility] Work Phone: Erythrocyte sedimentation ra dago 06-23-2021 ESR (Bld) [Velocity] 30 mm/h 0-30 [facility] Work Phone: Hematocrit Auto (Bld) [Volum e fraction]on 06-23-2021 Hematocrit (Bld) [Volume fraction] 30.7 % 37-47 [facility] Work Phone: Laboratory - Chemistry and C hemistry - challengeon 06-23-2021 CK [Catalytic activity/Vol] 27 U/L 26-192 [facility] Work Phone: CO2 [Moles/Vol] 29.0 mmol/L 21.0-32.0 [facility] Work Phone: Urea nitrogen/Creatinine [Mass ratio] 29.8 mg/mg 10-20 [facility] Work Phone: Laboratory - Hematology and Cell countson 06-23-2021 Erythrocyte distribution width (RBC) [Entitic vol] 48.5 fL 35.1-43.9 [facility] Work Phone: Erythrocyte distribution width (RBC) [Ratio] 15.4 % 11.6-14.6 [facility] Work Phone: MCH (RBC) [Entitic mass] 27.5 pg 27.0-32.0 [facility] Work Phone: MCHC Auto (RBC) [Mass/Vol]on 06-23-2021 MCHC (RBC) [Mass/Vol] 31.9 g/dL 32-36 [facility] Work Phone: No Panel Informationon 06-23 Estimated GFR (MDRD) Amer 55 mL/min >60 [facility] Work Phone: Comment on above: GFR Calc Estimated GFR (MDRD) Non-Af Amer 46 mL/min >60 [facility] Work Phone: Comment on above: Non- GFR Calc 27.5 pg 27.0-32.0 [facility] Work Phone: 15.4 % 11.6-14.6 [facility] Work Phone: 48.5 fl 35.1-43.9 [facility] Work Phone: 46 mL/min >60 [facility] Work Phone: 55 mL/min >60 [facility] Work Phone: 29.8 RATIO 10-20 [facility] Work Phone: 27 U/L 26-192 [facility] Work Phone: 29.0 mmol/L 21.0-32.0 [facility] Work Phone: Platelets bldon 06-23-2021 Platelets (Bld) [#/Vol] 230 10*3/uL 150-450 [facility] Work Phone: Serum or plasma C reactive p rotein measurement (mass/volume)on 06-23-2021 CRP [Mass/Vol] 6.62 mg/L 0.0-3.0 [facility] Work Phone: Comment on above: C-Reactive Protein ( CRP) provides useful information for thediagnosis, therapy and monitoring of inflammatory processesand associated diseases. For the evaluation of Relative Riskfor Cardiovascular Disease, a High Sensitivity CRP (HSCRP)should be ordered. Serum or plasma calcium keyona urement (mass/volume)on 06-23-2021 Calcium [Mass/Vol] 9.3 mg/dL 8.5-10.1 [facility] Work Phone: Serum or plasma creatinine m easurement (mass/volume)on 06-23-2021 Creatinine [Mass/Vol] 1.24 mg/dL 0.55-1.02 [facility] Work Phone: Comment on above: The validity of the calculated GFR & GFRAA in patients over 70 years has not been determined. Clinical correlation is essential. Serum or plasma urea nitroge n measurement (mass/volume)on 06-23-2021 Urea nitrogen [Mass/Vol] 37 mg/dL 7-18 [facility] Work Phone: Thin prep Papanicolaou smear with manual screeningon 06-23-2021 Thin prep Papanicolaou smear with manual screening 7 5-15 [facility] Work Phone: Bacteria identified Cx Nom ( U)on 06-19-2021 Culture, urine Proteus mirabilis [facility] Work Phone: Bilirubin Test strip Ql (U)o n 06-19-2021 Bilirubin Ql (U) Negative Negative [facility] Work Phone: Culture, urineon 06-19-2021 Bacteria identified Cx Nom (U) Proteus mirabilis [facility] Work Phone: Ketones Test strip Ql (U)on 06-19-2021 Ketones Ql (U) Negative Negative [facility] Work Phone: Nitrite Test strip Ql (U)on 06-19-2021 Nitrite Ql (U) Positive Negative [facility] Work Phone: Protein Test strip Ql (U)on 06-19-2021 Protein Ql (U) Negative Negative [facility] Work Phone: Urine blood detectionon -0 RBC Ql (U) Negative Negative [facility] Work Phone: Urine clarityon 06-19-2021 Clarity (U) Sl. Cloudy Clear [facility] Work Phone: Urine color determinationon 06-19-2021 Color (U) Yellow Yellow [facility] Work Phone: Urine glucose detectionon Glucose Ql (U) Normal mg/dl Normal [facility] Work Phone: Urine leukocyte esterase det ection by dipstickon 06-19-2021 Leukocyte esterase Test strip Ql (U) 500 /ul Negative [facility] Work Phone: Urine pHon 06-19-2021 pH (U) 9.0 [pH] [facility] Work Phone: Urine specific gravity measu rementon 06-19-2021 Specific gravity (U) [Rel density] 1.015 [facility] Work Phone: Urobilinogen Auto test strip Ql (U)on 06-19-2021 Urobilinogen Ql (U) Normal mg/dl Normal [facility] Work Phone: Basophil percentageon 2021 Basophil percentage 129 mg/dL 74-106 [facility] Work Phone: Basophil percentage 138 mmol/L 136-145 [facility] Work Phone: Basophil percentage 4.1 mmol/L 3.5-5.1 [facility] Work Phone: Basophil percentage 104 mmol/L 98-107 [facility] Work Phone: Basophils (Bld) [#/Vol] 8.5 10*3/uL 4.4-11.0 [facility] Work Phone: Chloride [Moles/Vol] 104 mmol/L 98-107 [facility] Work Phone: Glucose [Mass/Vol] 129 mg/dL 74-106 [facility] Work Phone: Comment on above: Fasting Glucose resu lt greater than or equal to 126 mg/dL suggests DIABETES MELLITUS per A.D.A. criteria. Potassium [Moles/Vol] 4.1 mmol/L 3.5-5.1 [facility]: Sodium [Moles/Vol] 138 mmol/L 136-145 [facility] Work Phone: WBC (Bld) [#/Vol] 8.5 10*3/uL 4.4-11.0 [facility] Work Phone: Blood erythrocytes count (nu mber/volume)on 06-16-2021 RBC (Bld) [#/Vol] 4.01 10*6/uL [facility].2-5.4 [facility]: Blood hemoglobin measurement (mass/volume)on 06-16-2021 Hemoglobin (Bld) [Mass/Vol] 10.7 g/dL 12.0-15.0 [facility] Work Phone: Blood platelet mean volumeon 06-16-2021 Platelet mean volume (Bld) [Entitic vol] 10.7 fL 6.2-12.0 [facility] Work Phone: Determination of erythrocyte mean corpuscular volume (MCV)on 06-16-2021 MCV (RBC) [Entitic vol] 85.0 fL 81-99 [facility] Work Phone: Erythrocyte sedimentation ra dago 06-16-2021 ESR (Bld) [Velocity] 47 mm/h 0-30 [facility] Work Phone: Hematocrit Auto (Bld) [Volum e fraction]on 06-16-2021 Hematocrit (Bld) [Volume fraction] 34.1 % 37-47 [facility] Work Phone: Laboratory - Chemistry and C hemistry - challengeon 06-16-2021 CK [Catalytic activity/Vol] 28 U/L 26-192 [facility] Work Phone: CO2 [Moles/Vol] 28.0 mmol/L 21.0-32.0 [facility] Work Phone: Urea nitrogen/Creatinine [Mass ratio] 24.8 mg/mg 10- [facility] Work Phone: Laboratory - Hematology and Cell countson 06-16-2021 Erythrocyte distribution width (RBC) [Entitic vol] 47.7 fL 35.1-43.9 [facility] Work Phone: Erythrocyte distribution width (RBC) [Ratio] 15.2 % 11.6-14.6 [facility] Work Phone: MCH (RBC) [Entitic mass] 26.7 pg 27.0-32.0 [facility] Work Phone: MCHC Auto (RBC) [Mass/Vol]on 06-16-2021 MCHC (RBC) [Mass/Vol] 31.4 g/dL 32-36 [facility] Work Phone: No Panel Informationon 06-16 Estimated GFR (MDRD) Amer 46 mL/min >60 [facility] Work Phone: Comment on above: GFR Calc Estimated GFR (MDRD) Non-Af Amer 38 mL/min >60 [facility] Work Phone: Comment on above: Non- GFR Calc 26.7 pg 27.0-32.0 [facility] Work Phone: 15.2 % 11.6-14.6 [facility] Work Phone: 47.7 fl 35.1-43.9 [facility] Work Phone: [phone] 38 mL/min >60 [facility] Work Phone: 46 mL/min >60 [facility] Work Phone: 24.8 RATIO 10- [facility] Work Phone: 28 U/L 26-192 [facility] Work Phone: 28.0 mmol/L 21.0-32.0 [facility] Work Phone: Platelets bldon 06-16-2021 Platelets (Bld) [#/Vol] 265 10*3/uL 150-450 [facility] Work Phone: Serum or plasma C reactive p rotein measurement (mass/volume)on 06-16-2021 CRP [Mass/Vol] 6.37 mg/L 0.0-3.0 [facility] Work Phone: Comment on above: C-Reactive Protein ( CRP) provides useful information for thediagnosis, therapy and monitoring of inflammatory processesand associated diseases. For the evaluation of Relative Riskfor Cardiovascular Disease, a High Sensitivity CRP (HSCRP)should be ordered. Serum or plasma calcium keyona urement (mass/volume)on 06-16-2021 Calcium [Mass/Vol] 9.5 mg/dL 8.5-10.1 [facility] Work Phone: Serum or plasma creatinine m easurement (mass/volume)on 06-16-2021 Creatinine [Mass/Vol] 1.45 mg/dL 0.55-1.02 [facility] Work Phone: Comment on above: The validity of the calculated GFR & GFRAA in patients over 70 years has not been determined. Clinical correlation is essential. Serum or plasma urea nitroge n measurement (mass/volume)on 06-16-2021 Urea nitrogen [Mass/Vol] 36 mg/dL 7-18 [facility] Work Phone: Thin prep Papanicolaou smear with manual screeningon 06-16-2021 Thin prep Papanicolaou smear with manual screening 6 5-15 [facility] Work Phone: Basophil percentageon 2021 Basophil percentage 92 mg/dL 74-106 [facility] Work Phone: Basophil percentage 139 mmol/L 136-145 [facility] Work Phone: Basophil percentage 4.1 mmol/L 3.5-5.1 [facility] Work Phone: Basophil percentage 105 mmol/L 98-[address] [facility] Work Phone: Basophils (Bld) [#/Vol] 7.1 10*3/uL 4.4-11.0 [facility] Work Phone: Chloride [Moles/Vol] 105 mmol/L 98-107 [facility] Work Phone: Glucose [Mass/Vol] 92 mg/dL 74-[facility] Work Phone: Potassium [Moles/Vol] 4.1 mmol/L 3.5-5.1 [facility] Work Phone: [phone] Sodium [Moles/Vol] 139 mmol/L 136-145 [facility] Work [facility]: WBC (Bld) [#/Vol] 7.1 10*3/uL 4.4-11.0 [facility] Work Phone: Blood erythrocytes count (nu mber/volume)on 06-09-2021 RBC (Bld) [#/Vol] 3.65 10*6/uL 4.2-5.4 [facility] Work [facility]: Blood hemoglobin measurement (mass/volume)on 06-09-2021 Hemoglobin (Bld) [Mass/Vol] 9.6 g/dL 12.0-15.0 [facility] Work Phone: Blood platelet mean volumeon 06-09-2021 Platelet mean volume (Bld) [Entitic vol] 10.3 fL 6.2-12.0 [facility] Work Phone: Determination of erythrocyte mean corpuscular volume (MCV)on 06-09-2021 MCV (RBC) [Entitic vol] 85.2 fL 81-99 [facility] Work Phone: Erythrocyte sedimentation ra dago 06-09-2021 ESR (Bld) [Velocity] 28 mm[facility]h 0-30 [facility] Work Phone: Hematocrit Auto (Bld) [Volum e fraction]on 06-09-2021 Hematocrit (Bld) [Volume fraction] 31.1 % 37-47 [facility] Work Phone: Laboratory - Chemistry and C hemistry - challengeon 06-09-2021 CK [Catalytic activity/Vol] 34 U/L 26-192 [facility] Work Phone: CO2 [Moles/Vol] 30.0 mmol/L 21.0-32.0 [facility] Work Phone: Urea nitrogen/Creatinine [Mass ratio] 21.9 mg/mg 10-20 [facility] Work Phone: Laboratory - Hematology and Cell countson 06-09-2021 Erythrocyte distribution width (RBC) [Entitic vol] 48.1 fL 35.1-43.9 [facility] Work Phone: Erythrocyte distribution width (RBC) [Ratio] 15.3 % 11.6-14.6 [facility] Work Phone: MCH (RBC) [Entitic mass] 26.3 pg 27.0-32.0 [facility] Work Phone: MCHC Auto (RBC) [Mass/Vol]on 06-09-2021 MCHC (RBC) [Mass/Vol] 30.9 g/dL 32-36 [facility] Work Phone: No Panel Informationon 06-09 Estimated GFR (MDRD) Amer 44 mL/min >60 [facility] Work Phone: Comment on above: GFR Calc Estimated GFR (MDRD) Non-Af Amer 36 mL/min >60 [facility] Work Phone: Comment on above: Non- GFR Calc 26.3 pg 27.0-32.0 [facility] Work Phone: 15.3 % 11.6-14.6 [facility] Work Phone: 48.1 fl 35.1-43.9 [facility] Work Phone: 36 mL/min >60 [facility] Work Phone: 44 mL/min >60 [facility] Work Phone: 21.9 RATIO 10-20 [facility] Work Phone: 34 U/L 26-192 [facility] Work Phone: 30.0 mmol/L 21.0-32.0 [facility] Work Phone: Platelets bldon 06-09-2021 Platelets (Bld) [#/Vol] 230 10*3/uL 150-450 [facility] Work Phone: Serum or plasma C reactive p rotein measurement (mass/volume)on 06-09-2021 CRP [Mass/Vol] 5.91 mg/L 0.0-3.0 [facility] Work Phone: Comment on above: C-Reactive Protein ( CRP) provides useful information for thediagnosis, therapy and monitoring of inflammatory processesand associated diseases. For the evaluation of Relative Riskfor Cardiovascular Disease, a High Sensitivity CRP (HSCRP)should be ordered. Serum or plasma calcium keyona urement (mass/volume)on 06-09-2021 Calcium [Mass/Vol] 9.2 mg/dL 8.5-10.1 [facility] Work Phone: Serum or plasma creatinine m easurement (mass/volume)on 06-09-2021 Creatinine [Mass/Vol] 1.51 mg/dL 0.55-1.02 [facility] Work Phone: Comment on above: The validity of the calculated GFR & GFRAA in patients over 70 years has not been determined. Clinical correlation is essential. Serum or plasma urea nitroge n measurement (mass/volume)on 06-09-2021 Urea nitrogen [Mass/Vol] 33 mg/dL 7-18 [facility] Work Phone: Thin prep Papanicolaou smear with manual screeningon 06-09-2021 Thin prep Papanicolaou smear with manual screening 4 5-15 [facility] Work Phone: [phone] Absolute lymphocyte counton 06-02-2021 Lymphocytes Auto (Unsp spec) [#/Vol] 1.86 10*3/uL 0.83-4.51 [facility] Work Phone: [phone] Basophil percentageon 2021 Basophil percentage 88 mg/dL 74-106 [facility] Work Phone: Basophil percentage 140 mmol/L 136-145 [facility] Work Phone: Basophil percentage 3.8 mmol/L 3.5-5.1 [facility] Work Phone: Basophil percentage 103 mmol/L 98-107 [facility] Work Phone: Basophils (Bld) [#/Vol] 7.4 10*3/uL 4.4-11.0 [facility] Work Phone: Basophils (Bld) [#/Vol] 4.6 10*3/uL 2.0-7.7 [facility] Work Phone: Basophils/100 WBC (Bld) 0.4 % 0-1 [facility] Work Phone: Basophils/100 WBC (Bld) 62.3 % 47-70 [facility] Work Phone: Basophils/100 WBC (Bld) 5.3 % 0-5 [facility] Work Phone: Chloride [Moles/Vol] 103 mmol/L 98-107 [facility] Work Phone: Eosinophils/100 WBC (Bld) 5.3 % 0-5 [facility] Work Phone: Glucose [Mass/Vol] 88 mg/dL 74-106 [facility] Work Phone: Neutrophils (Bld) [#/Vol] 4.6 10*3/uL 2.0-7.7 [facility] Work Phone: Neutrophils/100 WBC (Bld) 62.3 % 47-70 [facility] Work Phone: Potassium [Moles/Vol] 3.8 mmol/L 3.5-5.1 [facility] Work Phone: Sodium [Moles/Vol] 140 mmol/L 136-145 [facility] Work Phone: WBC (Bld) [#/Vol] 7.4 10*3/uL 4.4-11.0 [facility] Work Phone: Blood erythrocytes count (nu mber/volume)on 06-02-2021 RBC (Bld) [#/Vol] 3.66 10*6/uL 4.2-5.4 [facility] Work [facility]: Blood hemoglobin measurement (mass/volume)on 06-02-2021 Hemoglobin (Bld) [Mass/Vol] 9.8 g/dL 12.0-15.0 [facility] Work Phone: Blood lymphocytes/100 leukoc yteson 06-02-2021 Lymphocytes/100 WBC (Bld) 25.2 % 19-41 [facility] Work Phone: [phone] Blood monocytes/100 leukocyt eson 06-02-2021 Monocytes/100 WBC (Bld) 6.4 % 0-10 [facility] Work Phone: Blood platelet mean volumeon 06-02-2021 Platelet mean volume (Bld) [Entitic vol] 10.8 fL 6.2-12.0 [facility] Work Phone: Determination of erythrocyte mean corpuscular volume (MCV)on 06-02-2021 MCV (RBC) [Entitic vol] 84.7 fL 81-99 [facility] Work Phone: Erythrocyte sedimentation ra dago 06-02-2021 ESR (Bld) [Velocity] 57 mm/h 0-30 [facility] Work Phone: Hematocrit Auto (Bld) [Volum e fraction]on 06-02-2021 Hematocrit (Bld) [Volume fraction] 31.0 % 37-47 [facility] Work Phone: Laboratory - Chemistry and C hemistry - challengeon 06-02-2021 CO2 [Moles/Vol] 29.0 mmol/L 21.0-32.0 [facility] Work Phone: Urea nitrogen/Creatinine [Mass ratio] 25.0 mg/mg 10-20 [facility] Work Phone: Laboratory - Hematology and Cell countson 06-02-2021 Erythrocyte distribution width (RBC) [Entitic vol] 47.8 fL 35.1-43.9 [facility] Work Phone: Erythrocyte distribution width (RBC) [Ratio] 15.4 % 11.6-14.6 [facility] Work Phone: Immature granulocytes/100 WBC (Bld) 0.400 % 0.0-0.9 [facility] Work Phone: Comment on above: IG% - Immature Granu locytes (promyelocytes, myelocytes and metamyelocytes) > 1% indicates that a LEFT SHIFT is Present. MCH (RBC) [Entitic mass] 26.8 pg 27.0-32.0 [facility] Work Phone: Nucleated RBC/100 WBC (Bld) [Ratio] 0 % 0-5 [facility] Work Phone: MCHC Auto (RBC) [Mass/Vol]on 06-02-2021 MCHC (RBC) [Mass/Vol] 31.6 g/dL 32-36 [facility] Work Phone: No Panel Informationon 06-02 Estimated GFR (MDRD) Amer 55 mL/min >60 [facility] Work Phone: Comment on above: GFR Calc Estimated GFR (MDRD) Non-Af Amer 46 mL/min >60 [facility] Work Phone: Comment on above: Non- GFR Calc 26.8 pg 27.0-32.0 [facility] Work Phone: 15.4 % 11.6-14.6 [facility] Work Phone: 47.8 fl 35.1-43.9 [facility] Work Phone: 0.400 % 0.0-0.9 [facility] Work Phone: 0 % 0-5 [facility] Work Phone: 46 mL/min >60 [facility] Work Phone: 55 mL/min >60 [facility] Work Phone: 25.0 RATIO 10-20 [facility] Work Phone: 29.0 mmol/L 21.0-32.0 [facility] Work Phone: Platelets bldon 06-02-2021 Platelets (Bld) [#/Vol] 246 10*3/uL 150-450 [facility] Work Phone: Serum or plasma C reactive p rotein measurement (mass/volume)on 06-02-2021 CRP [Mass/Vol] 9.08 mg/L 0.0-3.0 [facility] Work Phone: Comment on above: C-Reactive Protein ( CRP) provides useful information for thediagnosis, therapy and monitoring of inflammatory processesand associated diseases. For the evaluation of Relative Riskfor Cardiovascular Disease, a High Sensitivity CRP (HSCRP)should be ordered. Serum or plasma calcium keyona urement (mass/volume)on 06-02-2021 Calcium [Mass/Vol] 9.2 mg/dL 8.5-10.1 [facility] Work Phone: Serum or plasma creatinine m easurement (mass/volume)on 06-02-2021 Creatinine [Mass/Vol] 1.24 mg/dL 0.55-1.02 [facility] Work Phone: Comment on above: The validity of the calculated GFR & GFRAA in patients over 70 years has not been determined. Clinical correlation is essential. Serum or plasma urea nitroge n measurement (mass/volume)on 06-02-2021 Urea nitrogen [Mass/Vol] 31 mg/dL 7-18 [facility] Work Phone: Thin prep Papanicolaou smear with manual screeningon 06-02-2021 Thin prep Papanicolaou smear with manual screening 8 5-15 [facility] Work Phone: Basophil percentageon 2021 Basophil percentage 95 mg/dL 74-106 [facility] Work Phone: Basophil percentage 141 mmol/L 136-145 [facility] Work Phone: Basophil percentage 4.0 mmol/L 3.5-5.1 [facility] Work Phone: Basophil percentage 102 mmol/L 98-107 [facility] Work Phone: Basophils (Bld) [#/Vol] 9.1 10*3/uL 4.4-11.0 [facility] Work Phone: Chloride [Moles/Vol] 102 mmol/L 98-107 [facility] Work Phone: Glucose [Mass/Vol] 95 mg/dL 74-106 [facility] Work Phone: Comment on above: Please note revised GLUCOSE reference range effective 2017. Potassium [Moles/Vol] 4.0 mmol/L 3.5-5.1 [facility] Work Phone: Sodium [Moles/Vol] 141 mmol/L 136-145 [facility] Work Phone: WBC (Bld) [#/Vol] 9.1 10*3/uL 4.4-11.0 [facility] Work Phone: Blood erythrocytes count (nu mber/volume)on 05-26-2021 RBC (Bld) [#/Vol] 3.91 10*6/uL 4.2-5.4 [facility] Work Phone: Blood hemoglobin measurement (mass/volume)on 05-26-2021 Hemoglobin (Bld) [Mass/Vol] 10.3 g/dL 12.0-15.0 [facility] Work Phone: Blood platelet mean volumeon 05-26-2021 Platelet mean volume (Bld) [Entitic vol] 10.8 fL 6.2-12.0 [facility] Work Phone: Determination of erythrocyte mean corpuscular volume (MCV)on 05-26-2021 MCV (RBC) [Entitic vol] 84.4 fL 81-99 [facility] Work Phone: Erythrocyte sedimentation ra dago 05-26-2021 ESR (Bld) [Velocity] 55 mm/h 0-30 [facility] Work Phone: Hematocrit Auto (Bld) [Volum e fraction]on 05-26-2021 Hematocrit (Bld) [Volume fraction] 33.0 % 37-47 [facility] Work Phone: Laboratory - Chemistry and C hemistry - challengeon 05-26-2021 CK [Catalytic activity/Vol] 41 U/L 26-192 [facility] Work Phone: CO2 [Moles/Vol] 29.0 mmol/L 21.0-32.0 [facility] Work Phone: Urea nitrogen/Creatinine [Mass ratio] 27.0 mg/mg 10-20 [facility] Work Phone: Laboratory - Hematology and Cell countson 05-26-2021 Erythrocyte distribution width (RBC) [Entitic vol] 47.6 fL 35.1-43.9 [facility] Work Phone: Erythrocyte distribution width (RBC) [Ratio] 15.5 % 11.6-14.6 [facility] Work Phone: MCH (RBC) [Entitic mass] 26.3 pg 27.0-32.0 [facility] Work Phone: MCHC Auto (RBC) [Mass/Vol]on 05-26-2021 MCHC (RBC) [Mass/Vol] 31.2 g/dL 32-36 [facility] Work Phone: No Panel Informationon 05-26 Estimated GFR (MDRD) Amer 54 mL/min >60 [facility] Work Phone: Comment on above: GFR Calc Estimated GFR (MDRD) Non-Af Amer 45 mL/min >60 [facility] Work Phone: Comment on above: Non- GFR Calc 26.3 pg 27.0-32.0 [facility] Work Phone: 15.5 % 11.6-14.6 [facility] Work Phone: 47.6 fl 35.1-43.9 [facility] Work Phone: 45 mL/min >60 [facility] Work Phone: 54 mL/min >60 [facility] Work Phone: 27.0 RATIO 10-20 [facility] Work Phone: 41 U/L 26-192 [facility] Work Phone: 29.0 mmol/L 21.0-32.0 [facility] Work Phone: Platelets bldon 05-26-2021 Platelets (Bld) [#/Vol] 302 10*3/uL 150-450 [facility] Work Phone: Serum or plasma C reactive p rotein measurement (mass/volume)on 05-26-2021 CRP [Mass/Vol] 11.40 mg/L 0.0-3.0 [facility] Work Phone: Comment on above: C-Reactive Protein ( CRP) provides useful information for thediagnosis, therapy and monitoring of inflammatory processesand associated diseases. For the evaluation of Relative Riskfor Cardiovascular Disease, a High Sensitivity CRP (HSCRP)should be ordered. Serum or plasma calcium keyona urement (mass/volume)on 05-26-2021 Calcium [Mass/Vol] 9.8 mg/dL 8.5-10.1 [facility] Work Phone: Serum or plasma creatinine m easurement (mass/volume)on 05-26-2021 Creatinine [Mass/Vol] 1.26 mg/dL 0.55-1.02 [facility] Work Phone: Comment on above: The validity of the calculated GFR & GFRAA in patients over 70 years has not been determined. Clinical correlation is essential. Serum or plasma urea nitroge n measurement (mass/volume)on 05-26-2021 Urea nitrogen [Mass/Vol] 34 mg/dL 7-18 [facility] Work Phone: Thin prep Papanicolaou smear with manual screeningon 05-26-2021 Thin prep Papanicolaou smear with manual screening 10 5-15 [facility] Work Phone: Basophil percentageon 2021 Basophil percentage 98 mg/dL 74-106 [facility] Work Phone: Basophil percentage 142 mmol/L 136-145 [facility] Work Phone: Basophil percentage 4.2 mmol/L 3.5-5.1 [facility] Work Phone: Basophil percentage 104 mmol/L 98-107 [facility] Work Phone: Basophils (Bld) [#/Vol] 7.2 10*3/uL 4.4-11.0 [facility] Work Phone: Chloride [Moles/Vol] 104 mmol/L 98-107 [facility] Work Phone: Glucose [Mass/Vol] 98 mg/dL 74-106 [facility] Work Phone: Comment on above: Please note revised GLUCOSE reference range effective 2017. Potassium [Moles/Vol] 4.2 mmol/L 3.5-5.1 [facility] Work Phone: Sodium [Moles/Vol] 142 mmol/L 136-145 [facility] Work Phone: WBC (Bld) [#/Vol] 7.2 10*3/uL 4.4-11.0 [facility] Work Phone: Blood erythrocytes count (nu mber/volume)on 05-19-2021 RBC (Bld) [#/Vol] 3.80 10*6/uL 4.2-5.4 [facility] Work Phone: Blood hemoglobin measurement (mass/volume)on 05-19-2021 Hemoglobin (Bld) [Mass/Vol] 10.2 g/dL 12.0-15.0 [facility] Work Phone: Blood platelet mean volumeon 05-19-2021 Platelet mean volume (Bld) [Entitic vol] 10.3 fL 6.2-12.0 [facility] Work Phone: Determination of erythrocyte mean corpuscular volume (MCV)on 05-19-2021 MCV (RBC) [Entitic vol] 85.3 fL 81-99 [facility] Work Phone: Erythrocyte sedimentation ra dago 05-19-2021 ESR (Bld) [Velocity] 52 mm/h 0-30 [facility] Work Phone: Comment on above: Previous reported re sult: 12 mm/hrEdited by: SUKUMAR on 05/19/21:0930 AMENDED REPORT 05/19/21 0930 SED RATE previously reported as: 12 mm/hr Hematocrit Auto (Bld) [Volum e fraction]on 05-19-2021 Hematocrit (Bld) [Volume fraction] 32.4 % 37-47 [facility] Work Phone: Laboratory - Chemistry and C hemistry - challengeon 05-19-2021 CK [Catalytic activity/Vol] 42 U/L 26-192 [facility] Work Phone: [phone] CO2 [Moles/Vol] 31.0 mmol/L 21.0-32.0 [facility] Work Phone: Urea nitrogen/Creatinine [Mass ratio] 20.2 mg/mg 10-20 [facility] Work Phone: [phone] Laboratory - Hematology and Cell countson 05-19-2021 Erythrocyte distribution width (RBC) [Entitic vol] 48.2 fL 35.1-43.9 [facility] Work Phone: [phone] Erythrocyte distribution width (RBC) [Ratio] 15.5 % 11.6-14.6 [facility] Work Phone: [phone] MCH (RBC) [Entitic mass] 26.8 pg 27.0-32.0 [facility] Work Phone: MCHC Auto (RBC) [Mass/Vol]on 05-19-2021 MCHC (RBC) [Mass/Vol] 31.5 g/dL 32-36 [facility] Work Phone: No Panel Informationon 05-19 Estimated GFR (MDRD) Amer 61 mL/min >60 [facility] Work Phone: Comment on above: GFR Calc Estimated GFR (MDRD) Non-Af Amer 50 mL/min >60 [facility] Work Phone: Comment on above: Non- GFR Calc 26.8 pg 27.0-32.0 [facility] Work Phone: [phone] 15.5 % 11.6-14.6 [facility] Work Phone: [phone] 48.2 fl 35.1-43.9 [facility] Work Phone: 50 mL/min >60 [facility] Work Phone: 61 mL/min >60 [facility] Work Phone: 20.2 RATIO 10-20 [facility] Work Phone: 42 U/L 26-192 [facility] Work Phone: 31.0 mmol/L 21.0-32.0 [facility] Work Phone: Platelets bldon 05-19-2021 Platelets (Bld) [#/Vol] 258 10*3/uL 150-450 [facility] Work Phone: Serum or plasma C reactive p rotein measurement (mass/volume)on 05-19-2021 CRP [Mass/Vol] 17.10 mg/L 0.0-3.0 [facility] Work Phone: Comment on above: C-Reactive Protein ( CRP) provides useful information for thediagnosis, therapy and monitoring of inflammatory processesand associated diseases. For the evaluation of Relative Riskfor Cardiovascular Disease, a High Sensitivity CRP (HSCRP)should be ordered. Serum or plasma calcium keyona urement (mass/volume)on 05-19-2021 Calcium [Mass/Vol] 10.1 mg/dL 8.5-10.1 [facility] Work Phone: Serum or plasma creatinine m easurement (mass/volume)on 05-19-2021 Creatinine [Mass/Vol] 1.14 mg/dL 0.55-1.02 [facility] Work Phone: Comment on above: The validity of the calculated GFR & GFRAA in patients over 70 years has not been determined. Clinical correlation is essential. Serum or plasma urea nitroge n measurement (mass/volume)on 05-19-2021 Urea nitrogen [Mass/Vol] 23 mg/dL 7-18 [facility] Work Phone: Thin prep Papanicolaou smear with manual screeningon 05-19-2021 Thin prep Papanicolaou smear with manual screening 7 5-15 [facility] Work Phone: Basophil percentageon 2020 Basophil percentage 103 mg/dL 74-106 [facility] Work Phone: Basophil percentage 140 mmol/L 136-145 [facility] Work Phone: Basophil percentage 3.7 mmol/L 3.5-5.1 [facility] Work Phone: Basophil percentage 104 mmol/L 98-107 [facility] Work Phone: Basophils (Bld) [#/Vol] 7.8 10*3/uL 4.4-11.0 [facility] Work Phone: Chloride [Moles/Vol] 104 mmol/L 98-107 [facility] Work Phone: Glucose [Mass/Vol] 103 mg/dL 74-106 [facility] Work Phone: Comment on above: Fasting Glucose resu lt from 100 to 125 mg/dL suggests IMPAIRED HOMEOSTASIS per A.D.A. criteria.Please note revised GLUCOSE reference range effective 2017. Potassium [Moles/Vol] 3.7 mmol/L 3.5-5.1 [facility] Work Phone: Sodium [Moles/Vol] 140 mmol/L 136-145 [facility] Work Phone: WBC (Bld) [#/Vol] 7.8 10*3/uL 4.4-11.0 [facility] Work Phone: Blood erythrocytes count (nu mber/volume)on 05-12-2021 RBC (Bld) [#/Vol] 3.76 10*6/uL 4.2-5.4 [facility] Work Phone: Blood hemoglobin measurement (mass/volume)on 05-12-2021 Hemoglobin (Bld) [Mass/Vol] 9.8 g/dL 12.0-15.0 [facility] Work Phone: Blood platelet mean volumeon 05-12-2021 Platelet mean volume (Bld) [Entitic vol] 10.6 fL 6.2-12.0 [facility] Work Phone: Determination of erythrocyte mean corpuscular volume (MCV)on 05-12-2021 MCV (RBC) [Entitic vol] 86.7 fL 81-99 [facility] Work Phone: Erythrocyte sedimentation ra dago 05-12-2021 ESR (Bld) [Velocity] 46 mm/h 0-30 [facility] Work Phone: Hematocrit Auto (Bld) [Volum e fraction]on 05-12-2021 Hematocrit (Bld) [Volume fraction] 32.6 % 37-47 [facility] Work Phone: Laboratory - Chemistry and C hemistry - challengeon 05-12-2021 CK [Catalytic activity/Vol] 71 U/L 26-192 [facility] Work Phone: CO2 [Moles/Vol] 28.0 mmol/L 21.0-32.0 [facility] Work Phone: Urea nitrogen/Creatinine [Mass ratio] 19.4 mg/mg 10-20 [facility] Work Phone: Laboratory - Hematology and Cell countson 05-12-2021 Erythrocyte distribution width (RBC) [Entitic vol] 50.2 fL 35.1-43.9 [facility] Work Phone: Erythrocyte distribution width (RBC) [Ratio] 15.6 % 11.6-14.6 [facility] Work Phone: MCH (RBC) [Entitic mass] 26.1 pg 27.0-32.0 [facility] Work Phone: MCHC Auto (RBC) [Mass/Vol]on 05-12-2021 MCHC (RBC) [Mass/Vol] 30.1 g/dL 32-36 [facility] Work Phone: No Panel Informationon 05-12 Estimated GFR (MDRD) Amer 55 mL/min >60 [facility] Work Phone: Comment on above: GFR Calc Estimated GFR (MDRD) Non-Af Amer 46 mL/min >60 [facility] Work Phone: Comment on above: Non- GFR Calc 26.1 pg 27.0-32.0 [facility] Work Phone: 15.6 % 11.6-14.6 [facility] Work Phone: 50.2 fl 35.1-43.9 [facility] Work Phone: 46 mL/min >60 [facility] Work Phone: 55 mL/min >60 [facility] Work Phone: 19.4 RATIO 10-20 [facility] Work Phone: 71 U/L 26-192 [facility] Work Phone: 28.0 mmol/L 21.0-32.0 [facility] Work Phone: Platelets bldon 05-12-2021 Platelets (Bld) [#/Vol] 251 10*3/uL 150-450 [facility] Work Phone: Serum or plasma C reactive p rotein measurement (mass/volume)on 05-12-2021 CRP [Mass/Vol] 9.89 mg/L 0.0-3.0 [facility] Work Phone: Comment on above: C-Reactive Protein ( CRP) provides useful information for thediagnosis, therapy and monitoring of inflammatory processesand associated diseases. For the evaluation of Relative Riskfor Cardiovascular Disease, a High Sensitivity CRP (HSCRP)should be ordered. Serum or plasma calcium keyona urement (mass/volume)on 05-12-2021 Calcium [Mass/Vol] 9.7 mg/dL 8.5-10.1 [facility] Work Phone: Serum or plasma creatinine m easurement (mass/volume)on 05-12-2021 Creatinine [Mass/Vol] 1.24 mg/dL 0.55-1.02 [facility] Work Phone: Comment on above: The validity of the calculated GFR & GFRAA in patients over 70 years has not been determined. Clinical correlation is essential. Serum or plasma urea nitroge n measurement (mass/volume)on 05-12-2021 Urea nitrogen [Mass/Vol] 24 mg/dL 7-18 [facility] Work Phone: Thin prep Papanicolaou smear with manual screeningon 05-12-2021 Thin prep Papanicolaou smear with manual screening 8 5-15 [facility] Work Phone: [phone] Basophil percentageon 2020 Basophil percentage 84 mg/dL 74-106 [facility] Work Phone: Basophil percentage 139 mmol/L 136-145 [facility] Work Phone: Basophil percentage 3.9 mmol/L 3.5-5.1 [facility] Work Phone: Basophil percentage 102 mmol/L 98-107 [facility] Work Phone: Basophils (Bld) [#/Vol] 7.2 10*3/uL 4.4-11.0 [facility] Work Phone: Chloride [Moles/Vol] 102 mmol/L 98-107 [facility] Work Phone: Glucose [Mass/Vol] 84 mg/dL 74-106 [facility] Work Phone: Comment on above: Please note revised GLUCOSE reference range effective 2017. Potassium [Moles/Vol] 3.9 mmol/L 3.5-5.1 [facility] Work Phone: Sodium [Moles/Vol] 139 mmol/L 136-145 [facility] Work Phone: WBC (Bld) [#/Vol] 7.2 10*3/uL 4.4-11.0 [facility] Work Phone: Blood erythrocytes count (nu mber/volume)on 05-05-2021 RBC (Bld) [#/Vol] 3.64 10*6/uL 4.2-5.4 [facility] Work Phone: Blood hemoglobin measurement (mass/volume)on 05-05-2021 Hemoglobin (Bld) [Mass/Vol] 9.8 g/dL 12.0-15.0 [facility] Work Phone: Blood platelet mean volumeon 05-05-2021 Platelet mean volume (Bld) [Entitic vol] 10.3 fL 6.2-12.0 [facility] Work Phone: Determination of erythrocyte mean corpuscular volume (MCV)on 05-05-2021 MCV (RBC) [Entitic vol] 85.7 fL 81-99 [facility] Work Phone: Erythrocyte sedimentation ra dago 05-05-2021 ESR (Bld) [Velocity] 49 mm/h 0-30 [facility] Work Phone: Hematocrit Auto (Bld) [Volum e fraction]on 05-05-2021 Hematocrit (Bld) [Volume fraction] 31.2 % 37-47 [facility] Work Phone: Laboratory - Chemistry and C hemistry - challengeon 05-05-2021 CK [Catalytic activity/Vol] 125 U/L 26-192 [facility] Work Phone: CO2 [Moles/Vol] 28.0 mmol/L 21.0-32.0 [facility] Work Phone: Urea nitrogen/Creatinine [Mass ratio] 18.4 mg/mg 10-20 [facility] Work Phone: Laboratory - Hematology and Cell countson 05-05-2021 Erythrocyte distribution width (RBC) [Entitic vol] 49.7 fL 35.1-43.9 [facility] Work Phone: Erythrocyte distribution width (RBC) [Ratio] 15.9 % 11.6-14.6 [facility] Work Phone: MCH (RBC) [Entitic mass] 26.9 pg 27.0-32.0 [facility] Work Phone: MCHC Auto (RBC) [Mass/Vol]on 05-05-2021 MCHC (RBC) [Mass/Vol] 31.4 g/dL 32-36 [facility] Work Phone: No Panel Informationon 05-05 Estimated GFR (MDRD) Amer 61 mL/min >60 [facility] Work Phone: Comment on above: GFR Calc Estimated GFR (MDRD) Non-Af Amer 50 mL/min >60 [facility] Work Phone: Comment on above: Non- GFR Calc 26.9 pg 27.0-32.0 [facility] Work Phone: 15.9 % 11.6-14.6 [facility] Work Phone: 49.7 fl 35.1-43.9 [facility] Work Phone: 50 mL/min >60 [facility] Work Phone: 61 mL/min >60 [facility] Work Phone: 18.4 RATIO 10-20 [facility] Work Phone: 125 U/L 26-192 [facility] Work Phone: 28.0 mmol/L 21.0-32.0 [facility] Work Phone: Platelets bldon 05-05-2021 Platelets (Bld) [#/Vol] 289 10*3/uL 150-450 [facility] Work Phone: Serum or plasma C reactive p rotein measurement (mass/volume)on 05-05-2021 CRP [Mass/Vol] 16.50 mg/L 0.0-3.0 [facility] Work Phone: Comment on above: C-Reactive Protein ( CRP) provides useful information for thediagnosis, therapy and monitoring of inflammatory processesand associated diseases. For the evaluation of Relative Riskfor Cardiovascular Disease, a High Sensitivity CRP (HSCRP)should be ordered. Serum or plasma calcium keyona urement (mass/volume)on 05-05-2021 Calcium [Mass/Vol] 9.5 mg/dL 8.5-10.1 [facility] Work Phone: Serum or plasma creatinine m easurement (mass/volume)on 05-05-2021 Creatinine [Mass/Vol] 1.14 mg/dL 0.55-1.02 [facility] Work Phone: Comment on above: The validity of the calculated GFR & GFRAA in patients over 70 years has not been determined. Clinical correlation is essential. Serum or plasma urea nitroge n measurement (mass/volume)on 05-05-2021 Urea nitrogen [Mass/Vol] 21 mg/dL 7-18 [facility] Work Phone: Thin prep Papanicolaou smear with manual screeningon 05-05-2021 Thin prep Papanicolaou smear with manual screening 9 5-15 [facility] Work Phone: Basophil percentageon 2020 Basophil percentage 143 mg/dL 74-106 [facility] Work Phone: Basophil percentage 140 mmol/L 136-145 [facility] Work Phone: Basophil percentage 3.6 mmol/L 3.5-5.1 [facility] Work Phone: Basophil percentage 104 mmol/L 98-107 [facility] Work Phone: Basophils (Bld) [#/Vol] 7.2 10*3/uL 4.4-11.0 [facility] Work Phone: Chloride [Moles/Vol] 104 mmol/L 98-107 [facility] Work Phone: Glucose [Mass/Vol] 143 mg/dL 74-106 [facility] Work Phone: Comment on above: Fasting Glucose resu lt greater than or equal to 126 mg/dL suggests DIABETES MELLITUS per A.D.A. criteria.Please note revised GLUCOSE reference range effective 2017. Potassium [Moles/Vol] 3.6 mmol/L 3.5-5.1 [facility] Work Phone: Sodium [Moles/Vol] 140 mmol/L 136-145 [facility] Work Phone: WBC (Bld) [#/Vol] 7.2 10*3/uL 4.4-11.0 [facility]: Blood erythrocytes count (nu mber/volume)on 04-28-2021 RBC (Bld) [#/Vol] 3.42 10*6/uL 4.2-5.4 [facility] Work [facility]: Blood hemoglobin measurement (mass/volume)on 04-28-2021 Hemoglobin (Bld) [Mass/Vol] 9.2 g/dL 12.0-15.0 [facility] Work Phone: Blood platelet mean volumeon 04-28-2021 Platelet mean volume (Bld) [Entitic vol] 10.4 fL 6.2-12.0 [facility] Work Phone: Determination of erythrocyte mean corpuscular volume (MCV)on 04-28-2021 MCV (RBC) [Entitic vol] 87.4 fL 81-99 [facility] Work Phone: Erythrocyte sedimentation ra dago 04-28-2021 ESR (Bld) [Velocity] 49 mm/h 0-30 [facility] Work Phone: Hematocrit Auto (Bld) [Volum e fraction]on 04-28-2021 Hematocrit (Bld) [Volume fraction] 29.9 % 37-47 [facility] Work Phone: Laboratory - Chemistry and C hemistry - challengeon 04-28-2021 CK [Catalytic activity/Vol] 111 U/L 26-192 [facility] Work Phone: CO2 [Moles/Vol] 27.0 mmol/L 21.0-32.0 [facility] Work Phone: Urea nitrogen/Creatinine [Mass ratio] 21.5 mg/mg 10- [facility] Work Phone: [phone] Laboratory - Hematology and Cell countson 04-28-2021 Erythrocyte distribution width (RBC) [Entitic vol] 50.1 fL 35.1-43.9 [facility] Work Phone: [phone] Erythrocyte distribution width (RBC) [Ratio] 15.8 % 11.6-14.6 [facility] Work Phone: [phone] MCH (RBC) [Entitic mass] 26.9 pg 27.0-32.0 [facility] Work Phone: [phone] MCHC Auto (RBC) [Mass/Vol]on 04-28-2021 MCHC (RBC) [Mass/Vol] 30.8 g/dL 32-36 [facility] Work Phone: [phone] No Panel Informationon 04-28 Estimated GFR (MDRD) Amer 50 mL/min >60 [facility] Work Phone: [phone] Comment on above: GFR Calc Estimated GFR (MDRD) Non-Af Amer 41 mL/min >60 [facility] Work Phone: [phone] Comment on above: Non- GFR Calc 26.9 pg 27.0-32.0 [facility] Work Phone: [phone] 15.8 % 11.6-14.6 [facility] Work Phone: [phone] 50.1 fl 35.1-43.9 [facility] Work Phone: [phone] 41 mL/min >60 [facility] Work Phone: [phone] 50 mL/min >60 [facility] Work Phone: [phone] 21.5 RATIO - [facility] Work Phone: 111 U/L 26-192 [facility] Work Phone: [phone] 27.0 mmol/L 21.0-32.0 [facility] Work Phone: Platelets bldon 12-14-2021 Platelets (Bld) [#/Vol] 247 10*3/uL 150-450 [facility] Work Phone: Serum or plasma C reactive p rotein measurement (mass/volume)on 04-28-2021 CRP [Mass/Vol] 17.00 mg/L 0.0-3.0 [facility] Work Phone: Comment on above: C-Reactive Protein ( CRP) provides useful information for thediagnosis, therapy and monitoring of inflammatory processesand associated diseases. For the evaluation of Relative Riskfor Cardiovascular Disease, a High Sensitivity CRP (HSCRP)should be ordered. Serum or plasma calcium keyona urement (mass/volume)on 04-28-2021 Calcium [Mass/Vol] 9.1 mg/dL 8.5-10.1 [facility] Work Phone: Serum or plasma creatinine m easurement (mass/volume)on 04-28-2021 Creatinine [Mass/Vol] 1.35 mg/dL 0.55-1.02 [facility] Work Phone: Comment on above: The validity of the calculated GFR & GFRAA in patients over 70 years has not been determined. Clinical correlation is essential. Serum or plasma urea nitroge n measurement (mass/volume)on 04-28-2021 Urea nitrogen [Mass/Vol] 29 mg/dL 7-18 [facility] Work Phone: Thin prep Papanicolaou smear with manual screeningon 04-28-2021 Thin prep Papanicolaou smear with manual screening 9 -15 [facility] Work Phone: GLUCOSE METERon 04-20-2021 Glucose [Mass/Vol] 258 mg/dL High 85-125 [facility] Comment on above: Performed By: #### L [id number] #### [facility] [address] [place] [address] SURG TISSUEon 04-19-2021 SURG TISSUE GRAM STAIN RARE WBC'S NO ORGANISMS SEEN ORGANISM 1: STAPH AUREUS,METHICILLIN RESIS QUANTITATION FROM LIQUID MEDIA ONLY STAPH AUREUS,METHICILLIN RESIS: REACTION AMPICILLIN >8 R* AMP/SULBACTAM (UNASYN) <8/4 R* AUGMENTIN (AMOX/K CLAVULANATE) <4/2 R* AZITHROMYCIN >4 R CEFAZOLIN <8 R* CEFOXITIN SCREEN >4 POS CLINDAMYCIN <0.5 S ERYTHROMYCIN >4 R GENTAMICIN <4 S INDUCIBLE CLINDAMYCIN TEST <4/0.5 NEG LINEZOLID <2 S OXACILLIN >2 R PENICILLIN >8 R* RIFAMPIN <1 S TETRACYCLINE <4 S TRIMETH/SULFA <0.5/9.5 S VANCOMYCIN 2 S MEROPENEM <4 R* DAPTOMYCIN <1 S CEFTAROLINE <0.5 S Normal [facility] Comment on above: Order Comment: Trung s: M: #2 RIGHT ELBOW CULTURE AEROBIC Performed By: #### M [id number] ####[facility] [id number] [place], [place] [address]Cr# [phone] ANAER CULTUREon 04-18-2021 ANAER CULTURE RESULT NO GROWTH OF ANAEROBES Normal [facility] Comment on above: Order Comment: Trung s: M : Nasopharyngeal swab Performed By: #### L [id number] #### [facility] [address]# [phone] ANAER CULTURE NO GROWTH OF ANAEROBES AFTER 5 DAYS [facility] Comment on above: Order Comment: Trung s: M: #1 RIGHT ELBOW BONE FOR CULTURE FOR AEROBIC AND ANAEROBIC Performed By: #### M [id number] ####[facility] [id number] [place] [address]Gr# [phone] SURG TISSUEon 04-18-2021 SURG TISSUE GRAM STAIN RARE WBC'S RARE GRAM POSITIVE COCCI ORGANISM 1: STAPHYLOCOCCUS EPIDERMIDIS QUANTITATION FROM LIQUID MEDIA ONLY STAPHYLOCOCCUS EPIDERMIDIS: REACTION AMPICILLIN 8 R AMP/SULBACTAM (UNASYN) <8/4 R AUGMENTIN (AMOX/K CLAVULANATE) <4/2 R AZITHROMYCIN <2 S CEFAZOLIN <8 R CLINDAMYCIN <0.5 S ERYTHROMYCIN <0.25 S GENTAMICIN <4 S LINEZOLID <2 S OXACILLIN >2 R PENICILLIN 8 R RIFAMPIN <1 S TETRACYCLINE <4 S TRIMETH/SULFA >2/38 R VANCOMYCIN 1 S MEROPENEM <4 R DAPTOMYCIN <1 S Normal [facility] Comment on above: Order Comment: Campu s: M: #1 RIGHT ELBOW BONE FOR CULTURE FOR AEROBIC AND ANAEROBIC Performed By: #### M [id number] ####[facility] [id number] [place], [place] [address]Uv# [phone] BMPon 04-17-2021 Anion gap [Moles/Vol] 8 mmol/L Normal 5-16 [facility] Comment on above: Order Comment: Campu s: M Performed By: #### L 200.12259 #### [facility] [address] [place] [address] Calcium [Mass/Vol] 9.7 mg/dL Normal 8.5-10.5 [facility] Comment on above: Order Comment: Campu s: M Result Comment: NOTE NEW NORMAL RANGE DUE TO REAGENT CHANGE Performed By: #### L 200.39714 #### [facility] [address] [place] [address] Chloride [Moles/Vol] 106 mmol/L Normal 98-107 [facility] Comment on above: Order Comment: Campu s: M Performed By: #### L 200.78620 #### [facility] [address] [place] [address] CO2 [Moles/Vol] 25.0 mmol/L Normal 21-32 [facility] Comment on above: Order Comment: Campu s: M Performed By: #### L 200.78729 #### [facility] [address] [place] [address] Creatinine [Mass/Vol] 1.03 mg/dL High 0.510-0.950 [facility] Comment on above: Order Comment: Campu s: M Result Comment: Nash ents receiving either N-Acetylcysteine (NAC) or Metamizole prior to venipuncture, may have falsely depressed results. Performed By: #### L 200.06229 #### [facility] [address] [place] [address] Glucose [Mass/Vol] 218 mg/dL High 70-100 [facility] Comment on above: Order Comment: Campu s: M Result Comment: 70-1 00- Normal Fasting; 100-125 Impaired Fasting; greater than 126 on more than one result- Diabetes. ADA guidelines. Results may be falsely elevated after the administration of Sulfapyridine. Results may be falsely depressed after the administration of Sulfasalazine. Performed By: #### L 200.59646 #### [facility] [address] [place] [address] Potassium [Moles/Vol] 4.5 mmol/L Normal 3.5-5.1 [facility] Comment on above: Order Comment: Campu s: M Performed By: #### L 200.54979 #### [facility] [address] [place] [address] Sodium [Moles/Vol] 139 mmol/L Normal 136-145 [facility] Comment on above: Order Comment: Campu s: M Performed By: #### L 200.25000 #### [facility] [place] [address] Urea nitrogen [Mass/Vol] 28 mg/dL High 7-26 [facility] Comment on above: Order Comment: Campu s: M Performed By: #### L 200.15858 #### [facility] [place] [address] Urea nitrogen/Creatinine [Mass ratio] 27 mg/mg High 15-24 [facility] Comment on above: Order Comment: Campu s: M Performed By: #### L 200.39749 #### [facility] [place] [address] CKon 04-17-2021 CK [Catalytic activity/Vol] 43 U/L Normal 28-152 [facility] Comment on above: Order Comment: Campu s: M Result Comment: NOTE NEW NORMAL RANGE DUE TO REAGENT CHANGE Performed By: #### L 500.71798, L500.82619, L500.36415 ####[facility] [id number] [place], [place] [address]Eh# [phone] GFR ESTon 04-17-2021 IF AMER Greater than 60 Normal [facility] Comment on above: Order Comment: Campu s: M Performed By: #### L 500.89939, L500.28937, L500.66425 ####[facility] [id number] [place], [place] [address]Wl# [phone] IF non-AFR AMER 53 Normal [facility] Comment on above: Order Comment: Campu s: M Performed By: #### L 500.72581, L500.66637, L500.51386 ####[facility] [id number] [place], [place] [address]Aq# [phone] GLUCOSE METERon 04-17-2021 Glucose [Mass/Vol] 266 mg/dL High 85-125 [facility] Glucose [Mass/Vol] 217 mg/dL High 85-125 [facility] Glucose [Mass/Vol] 277 mg/dL High 85-125 [facility] Glucose [Mass/Vol] 228 mg/dL High 85-125 [facility] Glucose [Mass/Vol] 209 mg/dL High 85-125 [facility] OTDSon 04-17-2021 OTDS Occupational Therapy Inpatient Last Visit Note The inpatient Occupational Therapy care is discontinued at this time for the following reasons: Discharge from hospital. [facility] THIS DATE AM-PAC Daily Activities: Putting On/Taking Off Lower Body Clothing: A lot of help needed Bathing:: A lot of help needed Toileting: A lot of help needed Putting On/Taking Off Upper Body Clothing: A little help needed Grooming: A little help needed Eating a Meal: A little help needed Raw Score = 15 , AM-PAC t-Scale Score = 34.69 and G-Code Modifier = CK Interventions: Self Care/Home Management: TRANSFERS, TO TOILET, CHAIR AT SBQC LEVEL W/ MIN A. MOD A FOR SIT TO STAND LE BATHING, ADAPTIVE DRESSING TOILETING GAIT Education: Education Provided: Precautions. Plan of care. Safety issues and interventions. Fall protocol. Supervision requirements. Use of adaptive devices. Activities of daily living. Functional transfers. Home exercise/activity plan. Audience: Patient. Mode: Explanation. Demonstration. Response: Needs practice. Needs reinforcement. Applied knowledge. Recommendations: Upon acute care discharge, the following is currently recommended: Inpatient Occupational Therapy, LESS THAN 60 minutes per day. Activity/Participati on Problem List and Goals: No updates at this time. Treatment Goals: TREATMENT GOAL REVIEW: 1. pt will complete safe functional transfer and mobility with cane mod I - Not Met: ONGOING 2. pt will complete toileting and toilet transfers mod I - Not Met ONGOING 3. pt will complete UB ADLs and sling management mod I - Not Met ONGOING 3. pt will complete UB ADLs and sling management mod I - Not Met ONGOING 4. pt will complete ADL at sink level mod I - Not Met ONGOING Time frame to achieve treatment goal(s): 5x/wk, 2 wks If there are any questions regarding this service, please contact the Acute Therapy Department at extension [phone] Services: Total Billed: 25 minutes (Timed: 25, Untimed: 0) 25.00 Timed: [38855] ADL-HOME MANAGEMENT EA [address] [facility] PATIENT NAME: JOSELINE ELLIS [address] [facility] [address] [place] MEDICAL REC #: [id number] [place] [address] ADMIT DATE: SERVICE DATE: 04/17/21 Occup. Therapy Discharge Summary ATTENDING PHSofia: Rajwinder Stout MD 0.00 Untimed: [] OT Treatment General ORDER Signed by: KANCHAN HOSKINS 04/17/2021 14:41:08 - CoSigned By: ZORA MURRIETA 04/17/2021 3:58:[address] [facility] PATIENT NAME: JOSELINE ELLIS [facility] [address] [place]l MEDICAL REC #: [id number] [place] [address] ADMIT DATE: SERVICE DATE: 04/17/21 Occup. Therapy Discharge Summary ATTENDING PHY: Rajwinder Stout MD [facility] 04-17-[address] [facility] Patient Name: JOSELINE ELLIS [address] Date of : [address] [place] [address] Unit Number: [id number] Progress Note-Hospitalist Patient [place] [facility] [place]ending Doctor: Rajwinder Stout MD Service Date: 04/17/21 1521 Chief Complaint Chief Complaint Medical consult, hypertension Subjective S: (2 ROS minimum) Patient seen and examined. Patient is 71-year-old female with history of A. fib, diabetes , hypertension and other medical problems who had right humerus fracture s/p surgery in February 2021 but she had hardware failure for which she had surgery (removal of hardware and irrigation/debrideme nt) on 04/13/2021 by orthopedics and hospitalist team was consulted for medical management. She mentions to pain under control. No other complaints. She is planning to be discharged to halfway today. Objective (ROS) Nursing Vitals Vital Signs (Last) Result Date Time O2 Delivery CPAP 04/17 0900 Pulse Ox 96 04/17 08 B/P 194/96 04/17 0836 Temp 98.1 04/17 0836 Pulse 87 04/17 0836 Resp 18 04/17 836 O2 Flow Rate 4 04/13 2348 Physical Exam Physical Examination Notes GENERAL: [Patient is a obese female lying in bed not in apparent distress.] HEAD: [Atraumatic, normocephalic.] NECK: [Supple.] CARDIOVASCULAR: [S1-S2 audible, no murmurs.] RESPIRAORY: [Bilateral air entry present. No significant rales or wheezing noted.] ABDOMIN: [Soft, nontender, bowel sounds appreciated.] EXTREMITIES: [Right upper extremity dressing noted, pulses palpable bilaterally.] BUSINESS PERFORMANCE ADVISOR: [Patient awake, alert, oriented 3. No focal neurological deficits. ] PSYCHIATRIC: [Normal mood and affect. Patient not in apparent distress.] Diagnostic Data: Lab 24hr (CBC/BMP Fishbone) 04/17/21 1136: SARS-CoV-2 (PCR) NEGATIVE 04/17/21 0610: [Embedded Image Not Available] Anion Gap 8, Est GFR ( Amer) Greater than 60, Est GFR (Non-Af Amer) 53, BUN/ Creatinine Ratio 27 H, Glucose 218 H, Total Calcium 9.7, Creatine Kinase 43 Assessment and Plan Conclusion 1. Hardware failure 2. Nonunion of fracture of humerus 3. Atrial fibrillation 4. Hypertension 5. Diabetes 6. Obesity 7. Anemia A. fib, on oral anticoagulation. Diabetes Hypertension Anxiety/depression History of CVA Chronic anemia Obesity Right humerus fracture status post surgery 02/26/2021. Hardware failure status post removal of hardware and irrigation/debrideme nt 04/13/2021. -Patient had right humerus fracture status post surgery in February 2021 but unfortunately she had hardware failure for which she had removal of hardware and irrigation/debrideme nt done on 04/13/2021. Primary management and discharge plans per orthopedics. -Patient was treated with IV vancomycin and now it was changed to IV daptomycin per ID. ID advised IV daptomycin until 05/24/2021 and outpatient follow-up in 2 to 3 weeks. Input noted. Patient had a PICC line placed. -Continue metoprolol and Norvasc for history of A. fib and hypertension. Losartan resumed considering blood pressure. Continue blood pressure monitoring. -Eliquis was resumed yesterday. Okay per orthopedics. -Patient has mild elevated creatinine but improved now, 1 today (1.37 recently, 1.24 before, unknown baseline). Patient received IV fluids which were later discontinued. -Continue oral iron that she takes for history of chronic anemia. -Continue Lantus to 10 units at bedtime. Continue NovoLog sliding scale for now with monitoring of CBGs for history of diabetes. Patient takes oral antidiabetic medications at home which will be resumed at discharge. -PT/OT advised halfway placement which was arranged by drug abuse social worker. -Continue other medications as ordered and supportive care. -Discharge plans per orthopedics. Call for any other questions. Disclaimer This dictation was created using voice recognition software. Phonetic and/or minor grammatical errors may exist. eSign Date and Time Andrés Galvin Verified/Reviewed by 04/17/21 1526 [facility] Progress Note-Hospitalist [facility] PROG.IDon 04-17-2021 PROG.ID [facility] Patient Name: JOSELINE ELLIS [address] Date of : [address] [place], [place] [address] Unit Number: [id number] Progress Note-Infectious Dis Patient Status[place] [facility] Attending Doctor: Rajwinder Stout MD Service Date: 04/17/2153 Progress Note-Infectious Dis Subjective Subjective: No new complaints. Pain under control. Objective Vital Signs: Vital Signs (24hr) Date Temp Pulse Resp B/P B/P Mean Pulse Ox FiO2 04/16-04/17 97.7-98.2 73-87 16-20 136-194/72-115 93-96 Vital Signs (Last) Result Date Time Pulse Ox 96 04/17 0836 B/P 194/96 04/17 0836 O2 Delivery CPAP 04/17 08 Temp 98.1 04/17 0836 Pulse 87 04/17 0836 Resp 18 04/17 0836 O2 Flow Rate 4 04/13 2348 Physical Exam: Alert, oriented, no acute distress. Right arm wrapped and in a sling. Regular rate rhythm. Abdomen soft, nontender. Bilateral lower extremity SCDs. Lab Results: Lab 24hr (CBC/BMP Fishbone) 04/17/21 0610: [Embedded Image Not Available] Anion Gap 8, Est GFR ( Amer) Greater than 60, Est GFR (Non-Af Amer) 53, BUN/ Creatinine Ratio 27 H, Glucose 218 H, Total Calcium 9.7, Creatine Kinase Pending Assessment/Plan Assessment/Problem List: 1. Nonunion of fracture of humerus 2. Hardware failure Postoperative hardware failure with concern for infected hardware status post ORIF of the right upper shortly (surgery 02/26/2021). Now status post hardware removal and placement of a spacer. History of diabetes. Cultures remain negative to date. Will transition from vancomycin to daptomycin in preparation for discharge to rehab facility. PICC line has been placed in the left upper extremity. Discussed with case management. Awaiting precertification. Stop date of antibiotics 05/24/2021. Weekly labs. Follow-up with me in 2 to 3 weeks after discharge. Will follow. Disclaimer This dictation was created using voice recognition software. Phonetic and/or minor grammatical errors may exist. eSign Date and Time Gautam David MD Verified/Reviewed by 04/17/21 0854 Normal [facility] Progress Note-Infectious Dis Normal [facility] [id number] 04-17-2021 SARS-CoV-2 (COVID-19) RNA ADE+probe Ql (Unsp spec) Negative Invalid Interpretation Code Negative [facility] Comment on above: Order Comment: Trung s: M: SNF TODAY Result Comment: RESU LTS CALLED TO AND READ BACK BY BALDO GRIMES AT 1243 04/17/21 BY CHERELLE TAM Negative results do not preclude SARS-CoV-2 infection and should not be used as the sole basis for treatment or other patient management decisions. Negative results must be combined with clinical observation, patient history, and epidemiological information. This test was performed by PCR. Performed By: #### L 770.76055 ####[facility] [id number] [place], [place] [address]Md# [phone] BMPon 04-16-2021 Anion gap [Moles/Vol] 5 mmol/L Normal 5-16 [facility] Comment on above: Order Comment: Trung s: M Performed By: #### L 500.54965, L500.59018, L550.87652 ####[facility] [id number] [place], [place] [address]Rd# [phone] Calcium [Mass/Vol] 9.5 mg/dL Normal 8.5-10.5 [facility] Comment on above: Order Comment: Campu s: M Result Comment: NOTE NEW NORMAL RANGE DUE TO REAGENT CHANGE Performed By: #### L 500.45363, L500.27453, L550.19171 ####[facility] [id number] [place], [place] [address]Iy# [phone] Chloride [Moles/Vol] 108 mmol/L High 98-107 [facility] Comment on above: Order Comment: Campu s: M Performed By: #### L 500.26720, L500.25480, L550.67315 ####[facility] [id number] [place], [place] [address]Ib# [phone] CO2 [Moles/Vol] 26.0 mmol/L Normal 21-32 [facility] Comment on above: Order Comment: Campu s: M Performed By: #### L 500.18685, L500.47580, L550.83645 ####[facility] [id number] [place], [place] [address]Dh# [phone] Creatinine [Mass/Vol] 1.13 mg/dL High 0.510-0.950 [facility] Comment on above: Order Comment: Campu s: M Result Comment: Nash ents receiving either N-Acetylcysteine (NAC) or Metamizole prior to venipuncture, may have falsely depressed results. Performed By: #### L 500.78544, L500.63536, L550.12530 ####[facility] [id number] [place], [place] [address]Hz# [phone] Glucose [Mass/Vol] 188 mg/dL High 70-100 [facility] Comment on above: Order Comment: Campu s: M Result Comment: 70-1 00- Normal Fasting; 100-125 Impaired Fasting; greater than 126 on more than one result- Diabetes. ADA guidelines. Results may be falsely elevated after the administration of Sulfapyridine. Results may be falsely depressed after the administration of Sulfasalazine. Performed By: #### L 500.12691, L500.88053, L550.94907 ####[facility] [id number] [place], [place] [address]Ks# [phone] Potassium [Moles/Vol] 4.5 mmol/L Normal 3.5-5.1 [facility] Comment on above: Order Comment: Campu s: M Performed By: #### L 500.64594, L500.07855, L550.42100 ####[facility] [id number] [place], [place] [address]Vv# [phone] Sodium [Moles/Vol] 139 mmol/L Normal 136-145 [facility] Comment on above: Order Comment: Campu s: M Performed By: #### L 500.59266, L500.60838, L550.08858 ####[facility] [id number] [place], [place] [address]Ph# [phone] Urea nitrogen [Mass/Vol] 28 mg/dL High 7-26 [facility] Comment on above: Order Comment: Campu s: M Performed By: #### L 500.24292, L500.52380, L550.92641 ####[facility] [id number] [place] [address]Zb# [phone] Urea nitrogen/Creatinine [Mass ratio] 25 mg/mg High 15-24 [facility] Comment on above: Order Comment: Campu s: M Performed By: #### L 500.40010, L500.25355, L550.65538 ####[facility] [id number] [place] [address]Bs# [phone] CBC W/DIFFon 04-16-2021 BASO ABS 0.00 K/CU MM Normal 0-0.2 [facility] Comment on above: Order Comment: Campu s: M Performed By: #### L 200.12194, L200.20371 ####[facility] [id number] [place] [address]Le# [phone] Basophils/100 WBC (Bld) 0.2 % Normal 0-2 M [facility] Comment on above: Order Comment: Campu s: M Performed By: #### L 200.92715, L200.58136 ####[facility] [id number] [place], [place] [address]Cw# [phone] EOS ABS 0.40 K/CU MM Normal 0-0.5 [facility] Comment on above: Order Comment: Campu s: M Performed By: #### L 200.44461, L200.34411 ####[address] [address]Ga# [phone] Eosinophils/100 WBC (Bld) 4.1 % Normal 0-5 [facility] Comment on above: Order Comment: Campu s: M Performed By: #### L 200.82486, L2.21653 ####[address] [address]Ws# [phone] Erythrocyte distribution width (RBC) [Ratio] 15.3 % High 11-14.5 [facility] Comment on above: Order Comment: Campu s: M Performed By: #### L 200.35852, L2.39266 ####[address] [address]Cg# [phone] Hematocrit (Bld) [Volume fraction] 30.2 % Low 35.0-47.0 [facility] Comment on above: Order Comment: Campu s: M Performed By: #### L 200.39535, L2.34798 ####[address] [address]Xj# [phone] Hemoglobin (Bld) [Mass/Vol] 9.4 g/dL Low 11.5-15.5 [facility] Comment on above: Order Comment: Campu s: M Performed By: #### L 200.90293, L200.96618 ####[facility] [id number] [place], [place] [address]Wv# [phone] IMMATR GRAN ABS 0.00 K/CU MM Normal Less than 2 [facility] Comment on above: Order Comment: Campu s: M Performed By: #### L 200.50321, L200167 ####[facility] [id number] [place], [place] [address]Bg# [phone] IMMATURE GRAN % 0.5 % Normal Less than 2 [facility] Comment on above: Order Comment: Campu s: M Performed By: #### L 200.29203, L236942 ####[address] [address]Uv# [phone] LYMPH ABS 1.60 K/CU MM Normal 0.9-4.4 [facility] Comment on above: Order Comment: Campu s: M Performed By: #### L 200.33970, L2200 ####[place] [address]Ph# [phone] Lymphocytes/100 WBC (Bld) 18.4 % Low 20-40 [facility] Comment on above: Order Comment: Campu s: M Performed By: #### L 200.05430, L233700 ####[address] [address]Ob# [phone] MCHC (RBC) [Mass/Vol] 31.1 g/dL Low 32.0-36.0 [facility] Comment on above: Order Comment: Campu s: M Performed By: #### L 200.45566, L237001 ####[place] [address]Ph# [phone] MCV (RBC) [Entitic vol] 86.0 fL Normal 80.0-99.0 [facility] Comment on above: Order Comment: Campu s: M Performed By: #### L 200.84150, L268425 ####[address] [address]Lx# [phone] MONO ABS 0.50 K/CU MM Normal 0.1-1.1 [facility] Comment on above: Order Comment: Campu s: M Performed By: #### L 200.07383, L200.96197 ####[facility] [id number] [place], [place] [address]Uk# [phone] Monocytes/100 WBC (Bld) 6.4 % Normal 2-10 [facility] Comment on above: Order Comment: Campu s: M Performed By: #### L 200.28730, L2.45548 ####[facility] [id number] [place], [place] [address]Tn# [phone] NEUTROPHIL ABS 5.90 K/CU MM Normal 2.0-8.3 [facility] Comment on above: Order Comment: Campu s: M Performed By: #### L 200.76801, L216809 ####[facility] [id number] [place], [place] [address]Rm# [phone] Neutrophils/100 WBC (Bld) 70.4 % Normal 45-75 [facility] Comment on above: Order Comment: Campu s: M Performed By: #### L 200.00750, L268136 ####[facility] [id number] [place], [place] [address]Oz# [phone] Nucleated RBC/100 WBC (Bld) [Ratio] 0.0 % Normal Less than 1 [facility] Comment on above: Order Comment: Campu s: M Performed By: #### L 200.15152, L299532 ####[facility] [id number] [place], [place] [address]Cc# [phone] Platelet mean volume (Bld) [Entitic vol] 9.8 fL Normal 9.4-12.4 [facility] Comment on above: Order Comment: Campu s: M Performed By: #### L 200.30176, L200.65339 ####[facility] [id number] [place], [place] [address]Zq# [phone] PLT 227 K/CU MM Normal 150-450 [facility] Comment on above: Order Comment: Campu s: M Performed By: #### L 200.12698, L200.74982 ####[facility] [id number] [place], [place] [address]Ux# [phone] RBC 3.51 M/CU MM Low 3.90-5.30 [facility] Comment on above: Order Comment: Campu s: M Performed By: #### L 200.48604, L200.96773 ####[facility] [id number] [place], [place] [address]Gv# [phone] WBC 8.4 K/CUMM Normal 4.5-11.0 [facility] Comment on above: Order Comment: Campu s: M Performed By: #### L 200.84653, L200.48664 ####[facility] [id number] [place], [place] [address]Wk# [phone] CRPon 04-16-2021 CRP 4.14 MG/DL Normal LESS THAN 1 [facility] Comment on above: Order Comment: Campu s: M Performed By: #### L 500.09416, L500.77361, L550.22634 ####[facility] [id number] [place], [place] [address]Ty# [phone] GFR ESTon 04-16-2021 IF AMER 58 Normal [facility] Comment on above: Order Comment: Campu s: M Performed By: #### L 500.87143, L500.94015, L550.05779 ####[facility] [id number] [place], [place] [address]Tl# [phone] IF non-AFR AMER 48 Normal [facility] Comment on above: Order Comment: Campu s: M Performed By: #### L 500.48883, L500.08852, L550.50171 ####[facility] [id number] [place], [place] [address]Rx# [phone] GLUCOSE METERon 04-16-2021 Glucose [Mass/Vol] 239 mg/dL High 85-125 [facility] Glucose [Mass/Vol] 202 mg/dL High 85-125 [facility] Glucose [Mass/Vol] 246 mg/dL High 85-125 [facility] OTPNon 04-16-2021 OT Progress Note Normal [facility] OTPN Occupational Therapy Inpatient Treatment Note Medical Diagnosis: s/p Removal of hardware right distal humerus, irrigation debridement of skin subcutaneous tissue muscle and bone right arm with cultures, placement antibiotic spacer right distal humerus by Dr. Stout on 04/13/2021 OCCUPATIONAL PROFILE AND HISTORY Demographics: Age: 71Y Gender: Female Primary Language: Maldivian Preferred Language: Maldivian Referring Service/Team: Orthopedics Rehabilitation Precautions/Restrict ions: NWB RUE, sling, fall risk Patient Report: I STILL LIKE TO USE THE WALKER BETTER THAN THIS CANE Patient/Caregiver Goals: to go home Pain: Patient currently has pain. Patient reports a pain level of 4 out of 10. Interventions: Patient medicated. OBJECTIVE / OCCUPATIONAL PERFORMANCE General Observation: SEEN FOR LIGHT ADLS AND MOBILITY AM THIS DATE,. PAITENT IN BED, APPEARED TO BE IN BETTER SPIRITS THIS DATE. WAS AGREEABLE TO GET OOB, COMPLETE LIGHT ADLS AND THEN SIT UP FOR BREAKFAST Activities of Daily Living: Current Status Previous Status ADLs Feeding - Supervision Grooming - Minimal assistance Bathing-UE - Maximal assistance Bathing-LE - Maximal assistance Dressing-UE - Maximal assistance Dressing-LE - Maximal assistance Toileting - Moderate assistance AM-PAC Daily Activities: Putting On/Taking Off Lower Body Clothing: A lot of help needed Bathing:: A lot of help needed Toileting: A lot of help needed Putting On/Taking Off Upper Body Clothing: A little help needed Grooming: A little help needed Eating a Meal: A little help needed [facility] PATIENT NAME: JOSELINE ELLIS [address] [facility] [address] MEDICAL REC #: [id number] [place] [address] ADMIT DATE: SERVICE DATE: 04/16/21 Occupational Therapy Progress Note ATTENDING PHY: Rajwinder Stout MD Raw Score = 15 , AM-PAC t-Scale Score = 34.69 and G-Code Modifier = CK Functional Mobility: Bed Mobility: All bed mobility including supine to sit, rolling, scooting. requiring moderate assistance. CUES FOR USING LUE TO PUSH ON BED FOR SCOOTING TO GET FEET TO FLOOR Transfers: Patient transferred to/from the toilet requiring moderate assistance of 1 person. Patient used the following equipment: Small based quad cane. CUES FOR SAFETY, PATIENT WOBBLY THIS AM Patient transferred bed to/from chair requiring moderate assistance of 1 person. Patient used the following equipment: Small based quad cane. ABOVE Locomotion/Gait/Ambu lation: Patient was moderate assist with gait/ambulation of 1 person for 30' TO AND FROM BATHROOM / HALLWAY . Patient requires the following assistive device(s): Small based quad cane. ABOVE. PATIENT TENDS TO PLACE SBQC TOO FAR IN FRONT OF HER FOR SAFETY Interventions: Self Care/Home Management: BED MOBILITY, TRANSFERS, LE BATHING, ADAPTIVE DRESSING TOILETING GAIT Pain Reassessment: No significant change in pain during session. Education: Education Provided: Precautions. Plan of care. Safety issues and interventions. Fall protocol. Repeated re-orientation. Use of adaptive devices. Supervision requirements. Activities of daily living. Bed mobility. Functional transfers. Audience: Patient. Mode: Explanation. Demonstration. Response: Needs practice. Needs reinforcement. No evidence of learning. ASSESSMENT Response to Visit: FAIR TOLERLANCE TO ADLS AND MOBILITY, DECREASED STRENGHTH, ENDURANCE, BALANCE LIMITING AND PATIENT MEHRDAD T A HIGH RSIK FOR FALLS, NOT SAFE FOR HOMEGOING ALONE Activity/Participati on Problem List and Goals: No updates at this time. Progress Toward Goals: TREATMENT GOAL REVIEW: 1. pt will complete safe functional transfer and mobility with cane mod I - Not Met: ONGOING 2. pt will complete toileting and toilet transfers mod I - Not Met ONGOING 3. pt will complete UB ADLs and sling management mod I - Not Met ONGOING 4. pt will complete ADL at sink level mod I - Not Met ONGOING Time frame to achieve treatment goal(s): 5x/wk, 2 wks PLAN Treatment Frequency, Duration and Interventions: Occupational Therapy is recommended for 5x/wk, 2 wks Occupational Therapy treatment is to include: Ther [facility] PATIENT NAME: JOSELINE ELLIS Dr. Chilel MEDICAL REC #: [id number] [place] [address] ADMIT DATE: SERVICE DATE: 04/16/21 Occupational Therapy Progress Note ATTENDING PHY: Rajwinder Stout MD act, ther ex., graded IADL and ADLs training, pain management, functional mobility and transfers, pt and family instruction, energy conservation, safety interventions, d/c planning. Recommended Occupational Therapy Follow Up: Upon acute care discharge, the following is currently recommended: Inpatient Occupational Therapy, AT LEAST 60 minutes per day. Patient would sherrie (more content not included)... Normal [facility] Patient Name: JOSELINE ELLIS Drive [address] Date of : [address] [place] [address] Unit Number: [id number] Progress Note-Hospitalist Patient Status[place] [facility] Attending Doctor: Rajwinder Stout MD Service Date: 04/16/21 1230 Chief Complaint Chief Complaint Medical consult, hypertension Subjective S: (2 ROS minimum) Patient seen and examined. Patient is 71-year-old female with history of A. fib, diabetes , hypertension and other medical problems who had right humerus fracture s/p surgery in February 2021 but she had hardware failure for which she had surgery (removal of hardware and irrigation/debrideme nt) on 04/13/2021 by orthopedics and hospitalist team was consulted for medical management. She mentions to pain under control. No other complaints. Objective (ROS) Nursing Vitals Vital Signs (Last) Result Date Time Pulse Ox 93 04/16 1127 B/P 136/72 04/16 1127 Temp 98.1 04/16 1127 Pulse 73 04/16 1127 Resp 16 04/16 1127 O2 Delivery NASAL CANNULA 04/13 2348 O2 Flow Rate 4 04/13 2348 Physical Exam Physical Examination Notes GENERAL: [Patient is a obese female lying in bed not in apparent distress.] HEAD: [Atraumatic, normocephalic.] NECK: [Supple.] CARDIOVASCULAR: [S1-S2 audible, no murmurs.] RESPIRAORY: [Bilateral air entry present. No significant rales or wheezing noted.] ABDOMIN: [Soft, nontender, bowel sounds appreciated.] EXTREMITIES: [Right upper extremity dressing noted, pulses palpable bilaterally.] BUSINESS PERFORMANCE ADVISOR: [Patient awake, alert, oriented 3. No focal neurological deficits. ] PSYCHIATRIC: [Normal mood and affect. Patient not in apparent distress.] Diagnostic Data: Lab 24hr ([facility] 04/16/21 0617: Whole Bld Glucose 202 H 04/16/21 0544: [Embedded Image Not Available] Anion Gap 5, Est GFR ( Amer) 58, Est GFR (Non-Af Amer) 48, BUN/Creatinine Ratio 25 H, Glucose 188 H, Total Calcium 9.5, C-Reactive Protein 4.14, RBC 3.51 L, MCV 86.0, MCHC 31.1 L, RDW 15.3 H, MPV 9.8, Immature Gran % (Auto) 0.5, Abs Immat Gran (auto) 0.00, Seg Neutrophils % 70.4, Lymphocytes % 18.4 L, Monocytes % 6.4, Eosinophils % 4.1, Basophils % 0.2, Neutrophils # 5.90, Lymphocytes # 1.60, Monocytes # 0.50, Eosinophils # 0.40, Basophils # 0.00, Nucleated RBCs 0.0, ESR Westergren 55 H 04/15/21 2228: Whole Bld Glucose 246 H 04/15/21 1825: Vancomycin Trough 16.7 04/15/21 1618: Whole Bld Glucose 239 H Assessment and Plan Conclusion 1. Hardware failure 2. Nonunion of fracture of humerus 3. Atrial fibrillation 4. Hypertension 5. Diabetes 6. Obesity 7. Anemia A. fib, on oral anticoagulation. Diabetes Hypertension Anxiety/depression History of CVA Chronic anemia Obesity Right humerus fracture status post surgery 02/26/2021. Hardware failure status post removal of hardware and irrigation/debrideme nt 04/13/2021. -Patient had right humerus fracture status post surgery in February 2021 but unfortunately she had hardware failure for which she had removal of hardware and irrigation/debrideme nt done on 04/13/2021. Primary management and discharge plans per orthopedics. -Continue IV vancomycin for now. -ID input noted. Patient needs long-term IV antibiotics as advised by ID. -Continue metoprolol and Norvasc for history of A. fib and hypertension. Continue blood pressure monitoring. -Eliquis was resumed. Okay per orthopedics. -Patient has mild elevated creatinine but improving now, 1.13 today (1.37 yesterday, 1.24 before, unknown baseline). IV fluids discontinued. -Continue oral iron that she takes for history of chronic anemia. -Increase Lantus to 10 units at bedtime. Continue NovoLog sliding scale for now with monitoring of CBGs for history of diabetes. Patient takes oral antidiabetic medications at home which will be resumed at discharge. -PT/OT advised halfway placement. Involve social worker aide for appropriate discharge planning. -Continue other medications as ordered and supportive care. -Will continue to follow the patient for medical management. Disclaimer This dictation was created using voice recognition software. Phonetic and/or minor grammatical errors may exist. eSign Date and Time Andrés Galvin Verified/Reviewed by 04/16/21 1615 [facility] Progress Note-Hospitalist [facility] PROG.ORTHOon 04-16-2021 PROG.ORTHO [facility] Patient Name: JOSELINE ELLIS [address] Date of : [address] [address] Unit Number: [id number] Progress Note-Ortho Patient Status: REG [facility] Attending Doctor: Rajwinder Stout MD Service Date: 04/16/21 0718 Progress Note - Ortho Subjective S: (2 ROS minimum) Patient is comfortable this morning. Has no new complaints Objective Nursing Vitals Vital Signs (Last) Result Date Time Pulse Ox 94 04/16 15 B/P 139/75 04/16 15 Temp 97.9 04/16 15 Pulse 89 04/16 15 Resp 20 04/16 15 O2 Delivery NASAL CANNULA 11/29 2348 O2 Flow Rate 4 04/13 2348 Physical Exam Physical examination she is resting comfortably. She is arousable. Her sling is on. Dressing is clean and dry. Neurovascular exam is unchanged. She has diffuse numbness in the distribution of the radial median ulnar nerves which she states that she has had for several weeks. She can actively wiggle her fingers. Diagnostic Data Lab 24hr (CBC/BMP [facility]) 04/16/21 0544: [Embedded Image Not Available] Anion Gap 5, Est GFR ( Amer) 58, Est GFR (Non-Af Amer) 48, BUN/Creatinine Ratio 25 H, Glucose 188 H, Total Calcium 9.5, C-Reactive Protein 4.14, RBC 3.51 L, MCV 86.0, MCHC 31.1 L, RDW 15.3 H, MPV 9.8, Immature Gran % (Auto) 0.5, Abs Immat Gran (auto) 0.00, Seg Neutrophils % 70.4, Lymphocytes % 18.4 L, Monocytes % 6.4, Eosinophils % 4.1, Basophils % 0.2, Neutrophils # 5.90, Lymphocytes # 1.60, Monocytes # 0.50, Eosinophils # 0.40, Basophils # 0.00, Nucleated RBCs 0.0, ESR Westergren Pending 04/15/21 1825: Vancomycin Trough 16.7 04/15/21 1137: Whole Bld Glucose 281 H Assessment/Plan Conclusion 1. Nonunion of fracture of humerus 2. Humerus fracture 3. Atrial fibrillation 4. Hypertension 5. Diabetes 6. Obesity 7. Elevated serum creatinine 8. Hardware failure Stay Reason/Anticipated Disch Continuing IV Antibiotics, Awaiting Placement Physician Attestation Statement of Attestation 71-year-old female postop day #3 status post removal of hardware irrigation debridement right distal humerus placement antibiotic spacer. Patient is awaiting PICC line. This has been ordered. Plan is for daptomycin per nursing. Apparently the nursing facility has to approve this as it is expensive medication. Appreciate ID input. Patient will need IV antibiotics for period of 6 to 8 weeks. Patient understands plan. She is to follow-up with me in the office in [address] Lubin is following in my absence. ERG I confirm that I have evaluated the patient, reviewed the history and physical, medications, diagnostic results, physical exam, assessment and plan of care of the patient. Disclaimer This dictation was created using voice recognition software. Phonetic and/or minor grammatical errors may exist. eSign Date and Time Rajwinder Stout MD Verified/Reviewed by 04/16/21 0720 [facility] Progress Note-Ortho [facility] PTPNon 04-16-2021 PT Progress Note Normal [facility] PTPN Physical Therapy Inpatient Treatment Note Medical Diagnosis: s/p Removal of hardware right distal humerus, irrigation debridement of skin subcutaneous tissue muscle and bone right arm with cultures, placement antibiotic spacer right distal humerus by Dr. Stout on 04/13/2021 Demographics: Age: 71Y Gender: Female Primary Language: Maldivian Preferred Language: Maldivian Rehabilitation Precautions/Restrict ions: NWB RUE, sling, fall risk SUBJECTIVE Patient Report: I'm stuck in this chair Patient/Caregiver Goals: to go home Pain: Patient currently has pain. Patient reports a pain level of 3 out of 10. Interventions: Repositioned patient. OBJECTIVE General Observation: Patient up in chair upon arrival, agreeable to participating w/ therapy. Functional Activities After Today's Session: Transfers: Patient transferred sit to/from stand requiring moderate assistance of 1 person. Patient used the following equipment: Arms of chair. Locomotion/Ambulatio n: Patient was moderate assist with gait/ambulation of 1 person for 40 feet . Patient requires the following assistive device(s): Small based quad cane. Unsteadiness noted w/ several LOB occuring, forward flexed posture, fatigue noted w/ amb. Stairs: Not assessed. Curb Negotiation: Not assessed. AM-PAC Basic Mobility: Turning Over in Bed: A lot of difficulty Sitting/Standing Chair with Arms: A lot of difficulty Lying on Back to Sitting on Side of Bed: A lot of difficulty Moving To/From Bed to Chair: A lot of help needed Walking in Hospital Room: A lot of help needed Climbing 3-5 Steps with Railing: A lot of help needed Raw Score = 12 , AM-PAC t-Scale Score = 35.33 and G-Code Modifier = CL Vital Signs: Not assessed. [facility] PATIENT NAME: JOSELINE ELLIS [facility] [address]. [address]l MEDICAL REC #: [id number] [place] [address] ADMIT DATE: SERVICE DATE: 04/16/21 Physical Therapy Progress Note ATTENDING PHY: Rajwinder Stout MD Interventions: Gait Training: Functional transfer training, education on proper transfer techniques, standing balance w/ SBQC, gait training w/ SBQC, education on A.D. use/safety, safety awareness, review/education on precautions, education on importance of mobility and OOB activity for improved overall wellbeing, education on PoC and d/c planning., review of seated bilat LE thex: heel/toe raises, LAQ, marching. Pain Reassessment: No significant change in pain during session. Education: Education Provided: Precautions. Pain management. Plan of care. Functional transfers. Safety. Equipment. Gait. Home exercise/activity plan. Audience: Patient. Mode: Explanation. Demonstration. Response: Demonstrated skill. Needs practice. Needs reinforcement. ASSESSMENT Response to Visit: Patient responded fair. Patient demo'd moderate unsteadiness this date. Patient continues to be at very high risk for falls at this time. Continue to recommend inpatient therapy services at least 60 minutes upon d/c. Activity/Participati on Problem List and Goals: No updates at this time. Progress Toward Goals: TREATMENT GOAL REVIEW: 1. Bed mobility with IA. - Not Met: Ongoing 2. Transfers with IA. - Not Met Ongoing 3. Pt will ambulate 80ft with WBQC and maintain NWB precautions on her R UE with IA for safe homegoing. - Not Met Ongoing 4. Pt will negotiate one step without HR and IA for safe homegoing. - Not Met: Ongoing Time frame to achieve treatment goal(s): 2 weeks PLAN Treatment Frequency, Duration and Interventions: Physical Therapy is recommended for 5x/week for 2 weeks Physical Therapy treatment is to include: Endurance training, gait training, ther act, transfers, bed mobility. Recommended Physical Therapy Follow Up: Upon acute care discharge, the following is currently recommended: Inpatient Physical Therapy, AT LEAST 60 minutes per day. Patient would tolerate and benefit from multidisciplinary inpatient rehabilitation with an intensity of 3 hours/day, 5 days/week. Recommended Equipment: None issued this visit. Recommended Consults: None currently. Development of Plan of Care: There was no change to plan of care today. If there are any questions regarding this service, please contact the Acute [facility] PATIENT NAME: JOSELINE ELLIS [facility] [address]. [address] MEDICAL REC #: [id number] [place] [address] ADMIT DATE: SERVICE DATE: 04/16/21 Physical Therapy Progress Note ATTENDING PHY: Rajwinder Stout MD Therapy Department at extension 1135 Location of Patient at End of Therapy Session: In chair, call light within reach Services: Total Billed: 11 minutes (Timed: 11, Untimed: 0) 11.00 Timed: [88235] GAIT TRAIN EA 15 MIN 0.00 Untimed: [] PT Treatment- General ORDER Signed by: Pati (more content not included)... Normal [facility] WSR/MODon 04-16-2021 WSR/MOD 55 MM/HR High 0-30 [facility] Comment on above: Order Comment: Campu s: M Performed By: #### L 200.03745, L200.23011 ####[facility] [id number] [place], [place] [address]Wz# [phone] BMPon 04-15-2021 Anion gap [Moles/Vol] 7 mmol/L Normal 5-16 [facility] Comment on above: Order Comment: Campu s: M Performed By: #### L 500.88700, L500.40023, L500.61565, L500.77109 ####[facility] [id number] [place], [place] [address]Tk# [phone] Calcium [Mass/Vol] 9.5 mg/dL Normal 8.5-10.5 [facility] Comment on above: Order Comment: Campu s: M Result Comment: NOTE NEW NORMAL RANGE DUE TO REAGENT CHANGE Performed By: #### L 500.28107, L500.02465, L500.36194, L500.06645 ####[facility] [id number] [place], [place] [address]Ks# [phone] Chloride [Moles/Vol] 107 mmol/L Normal 98-107 [facility] Comment on above: Order Comment: Campu s: M Performed By: #### L 500.72715, L500.08811, L500.02678, L500.77173 ####[facility] [id number] [place], [place] [address]Dr# [phone] CO2 [Moles/Vol] 25.0 mmol/L Normal 21-32 [facility] Comment on above: Order Comment: Campu s: M Performed By: #### L 500.66158, L500.44396, L500.15202, L500.17156 ####[facility] [id number] [place], [place] [address]Xm# [phone] Creatinine [Mass/Vol] 1.37 mg/dL High 0.510-0.950 [facility] Comment on above: Order Comment: Campu s: M Result Comment: Nash ents receiving either N-Acetylcysteine (NAC) or Metamizole prior to venipuncture, may have falsely depressed results. Performed By: #### L 500.47106, L500.44560, L500.69230, L500.98287 ####[facility] [id number] [place], [place] [address]Yy# [phone] Glucose [Mass/Vol] 163 mg/dL High 70-100 [facility] Comment on above: Order Comment: Campu s: M Result Comment: 70-1 00- Normal Fasting; 100-125 Impaired Fasting; greater than 126 on more than one result- Diabetes. ADA guidelines. Results may be falsely elevated after the administration of Sulfapyridine. Results may be falsely depressed after the administration of Sulfasalazine. Performed By: #### L 500.10233, L500.52129, L500.95526, L500.81007 ####[facility] [id number] [place], [place] [address]Vu# [phone] Potassium [Moles/Vol] 4.4 mmol/L Normal 3.5-5.1 [facility] Comment on above: Order Comment: Campu s: M Performed By: #### L 500.17520, L500.87889, L500.90329, L500.75580 ####[facility] [id number] [place], [place] [address]On# [phone] Sodium [Moles/Vol] 139 mmol/L Normal 136-145 [facility] Comment on above: Order Comment: Campu s: M Performed By: #### L 500.64581, L500.68057, L500.80376, L500.13592 ####[facility] [id number] [place] [address]Se# [phone] Urea nitrogen [Mass/Vol] 33 mg/dL High 7-26 [facility] Comment on above: Order Comment: Campu s: M Performed By: #### L 500.27060, L500.26039, L500.86146, L500.18680 ####[facility] [id number] [place], [place] [address]Ax# [phone] Urea nitrogen/Creatinine [Mass ratio] 24 mg/mg Normal 15-24 [facility] Comment on above: Order Comment: Campu s: M Performed By: #### L 500.07723, L500.76358, L500.52426, L500.09102 ####[facility] [id number] [place], [place] [address]Ha# [phone] CBCon 04-15-2021 Erythrocyte distribution width (RBC) [Ratio] 15.4 % High 11-14.5 [facility] Comment on above: Order Comment: Campu s: M Performed By: #### L 500.44222, L500.53825 #### [facility] [address] [place] [address] Hematocrit (Bld) [Volume fraction] 32.6 % Low 35.0-47.0 [facility] Comment on above: Order Comment: Campu s: M Performed By: #### L 500.18397, L500.63029 #### [facility] [address] [place] [address] Hemoglobin (Bld) [Mass/Vol] 10.0 g/dL Low 11.5-15.5 [facility] Comment on above: Order Comment: Campu s: M Performed By: #### L 500.69041, L5.61848 #### [facility] [address] [place] [address] MCHC (RBC) [Mass/Vol] 30.7 g/dL Low 32.0-36.0 [facility] Comment on above: Order Comment: Campu s: M Performed By: #### L 500.63403, L500.38672 #### [facility] [address] [place] [address] MCV (RBC) [Entitic vol] 87.2 fL Normal 80.0-99.0 [facility] Comment on above: Order Comment: Campu s: M Performed By: #### L 500.86519, L500.71665 #### [facility] [address] [place] [address] Nucleated RBC/100 WBC (Bld) [Ratio] 0.0 % Normal Less than 1 [facility] Comment on above: Order Comment: Campu s: M Performed By: #### L 500.75308, L500.95407 #### [facility] [address] [place], [place] [address] Platelet mean volume (Bld) [Entitic vol] 10.2 fL Normal 9.4-12.4 [facility] Comment on above: Order Comment: Campu s: M Performed By: #### L 500.14603, L500.22601 #### [facility] [place] [address] PLT 227 K/CU MM Normal 150-450 [facility] Comment on above: Order Comment: Campu s: M Performed By: #### L 500.74960, L500.05030 #### [facility] [address] [place] [address] RBC 3.74 M/CU MM Low 3.90-5.30 [facility] Comment on above: Order Comment: Campu s: M Performed By: #### L 500.38598, L500.51576 #### [facility] [address] [place] [address] WBC 6.7 K/CUMM Normal 4.5-11.0 [facility] Comment on above: Order Comment: Campu s: M Performed By: #### L 500.19498, L500.66480 #### [facility] [address] [place], [place] [address] Nora 04-15-2021 FERR 60.0 NG/ML Normal 8.0-307.0 [facility] Comment on above: Order Comment: Campu s: M Performed By: #### L 500.47849, L500.40148, L500.64455, L500.07716 ####[facility] [id number] [place], [place] [address]Qz# [phone] GFR ESTon 04-15-2021 IF AMER 46 Normal [facility] Comment on above: Order Comment: Campu s: M Performed By: #### L 500.56842, L500.67906, L500.54097, L500.75074 ####[facility] [id number] [place], [place] [address]Mh# [phone] IF non-AFR AMER 38 Normal [facility] Comment on above: Order Comment: Campu s: M Performed By: #### L 500.98321, L500.70217, L500.04571, L500.62950 ####[facility] [id number] [place], [place] [address]Vd# [phone] GLUCOSE METERon 04-15-2021 Glucose [Mass/Vol] 226 mg/dL High 85-125 [facility] Glucose [Mass/Vol] 281 mg/dL High 85-125 [facility] IRON PANELon 04-15-2021 Iron [Mass/Vol] 24 ug/dL Low 50-170 [facility] Comment on above: Order Comment: Campu s: M Result Comment: Nash ents treated with metal-binding drugs (e.g.deferoxamine) may have depressed iron values, as chelated iron may not properly react in the Siemens iron assay. Performed By: #### L 500.38904, L500.40611, L500.82612, L500.89907 ####[facility] [id number] [place], [place] [address]Td# [phone] IRON SAT 8 % Low 22-44 [facility] Comment on above: Order Comment: Campu s: M Performed By: #### L 500.27251, L500.13699, L500.98635, L500.41744 ####[facility] [id number] [place], [place] [address]Su# [phone] TIBC 294 UG/DL Normal 221-481 [facility] Comment on above: Order Comment: Campu s: M Performed By: #### L 500.85620, L500.20063, L500.73201, L500.94398 ####[facility] [id number] [place], [place] [address]Er# [phone] OTPNon 04-15-[address] [facility] OTPN Occupational Therapy Inpatient Treatment Note Medical Diagnosis: s/p Removal of hardware right distal humerus, irrigation debridement of skin subcutaneous tissue muscle and bone right arm with cultures, placement antibiotic spacer right distal humerus by Dr. Stout on 04/13/2021 OCCUPATIONAL PROFILE AND HISTORY Demographics: Age: 71Y Gender: Female Primary Language: Maldivian Preferred Language: Maldivian Referring Service/Team: Orthopedics Rehabilitation Precautions/Restrict ions: NWB RUE, sling, fall risk Patient Report: THIS IS ALL SO MUCH, IM SO DEPRESSED, I LOST MY AND MY DOG , AND NOT THIS INFECTION PATIENT TEARFUL; Patient/Caregiver Goals: to go home Pain: Patient currently has pain. Patient reports a pain level of 4 out of 10. Interventions: Patient medicated. OBJECTIVE / OCCUPATIONAL PERFORMANCE General Observation: SEEN FOR LIGHT ADLS AND MOBILITY AM THIS DATE,. PAITENT IN BED, NURSE LULA AWARE PATIENT REPORTING DEPRESSION Activities of Daily Living: Current Status Previous Status ADLs Feeding Supervision Minimal assistance Grooming Minimal assistance Minimal assistance Bathing-UE - Maximal assistance Bathing-LE - Maximal assistance Dressing-UE - Maximal assistance Dressing-LE - Maximal assistance Toileting - Moderate assistance AM-PAC Daily Activities: Putting On/Taking Off Lower Body Clothing: A lot of help needed Bathing:: A lot of help needed Toileting: A lot of help needed Putting On/Taking Off Upper Body Clothing: A lot of help needed Grooming: A little help needed Eating a Meal: A little help needed [facility] PATIENT NAME: JOSELINE ELLIS [address] [facility] [address] MEDICAL REC #: [id number] [place] [address] ADMIT DATE: SERVICE DATE: 04/15/21 Occupational Therapy Progress Note ATTENDING PHY: Rajwinder Stout MD Raw Score = 14 , AM-PAC t-Scale Score = 33.39 and G-Code Modifier = CK Functional Mobility: Bed Mobility: All bed mobility including supine to sit, rolling, scooting. requiring minimal assistance. CUES FOR RUE NWB Transfers: Patient transferred bed to/from chair requiring minimal assistance of 1 person. Patient used the following equipment: Small based quad cane. No equipment was used. CUES FOR SAFETY Locomotion/Gait/Ambu lation: Patient was minimal assist with gait/ambulation of 1 person for 30' TO AND FROM THE BATHROOM . Patient requires the following assistive device(s): Small based quad cane. SLOW PACED, CAUTIOUS Interventions: Self Care/Home Management: BED MOBILITY, TRANSFERS, LE BATHING, ADAPTIVE DRESSING TOILETING Therapeutic Activities: SLING WEARING/ ADJUSTMENT FOR COMFORT AND SUPPORT, RUE NWB PROTOCOLS AND ONLY USING A CANE, GAIT Pain Reassessment: No significant change in pain during session. Education: Education Provided: Precautions. Plan of care. Safety issues and interventions. Fall protocol. Supervision requirements. Use of adaptive devices. Activities of daily living. Activities of daily living. Bed mobility. Functional transfers. Home exercise/activity plan. Audience: Patient. Mode: Explanation. Demonstration. Response: Needs practice. Needs reinforcement. Applied knowledge. ASSESSMENT Response to Visit: FAIR TOLERLANCE TO ADLS AND MOBILITY, DECREASED STRENGHTH, ENDURANCE, BALANCE LIMITING AND PATIENT MEHRDAD T A HIGH RSIK FOR FALLS, NOT SAFE FOR HOMEGOING ALONE Activity/Participati on Problem List and Goals: No updates at this time. Progress Toward Goals: TREATMENT GOAL REVIEW: 1. pt will complete safe functional transfer and mobility with cane mod I - Not Met: ONGOING 2. pt will complete toileting and toilet transfers mod I - Not Met ONGOING 3. pt will complete UB ADLs and sling management mod I - Not Met ONGOING 4. pt will complete ADL at sink level mod I - Not Met ONGOING Time frame to achieve treatment goal(s): 5x/wk, 2 wks PLAN Treatment Frequency, Duration and Interventions: Occupational Therapy is recommended for 5x/wk, 2 wks Occupational Therapy treatment is to include: Ther act, ther ex., graded IADL and ADLs training, pain management, functional [facility] PATIENT NAME: JOSELINE ELLIS [address] [facility] [address] MEDICAL REC #: [id number] [place] [address] ADMIT DATE: SERVICE DATE: 04/15/21 Occupational Therapy Progress Note ATTENDING PHY: Rajwinder Stout MD mobility and transfers, pt and family instruction, energy conservation, safety interventions, d/c planning. Recommended Occupational Therapy Follow Up: Upon acute care discharge, the following is currently recommended: Inpatient Occupational Therapy, AT LEAST 60 minutes per day. Patient would tolerate and benefit from multidisciplinary inpatient rehabilitation with an intensity of 3 hours/day, 5 (more content not included)... Normal [facility] Name: JOSELINE ELLIS [employer] [address] Date of : [address] [address] Unit Number: [id number] Progress Note-Hospitalist Patient [place] [facility] [place]ending Doctor: Rajwinder Stout MD Service Date: 04/15/21922 Chief Complaint Chief Complaint Medical consult, hypertension Subjective S: (2 ROS minimum) Patient seen and examined. Patient is 71-year-old female with history of A. fib, diabetes , hypertension and other medical problems who had right humerus fracture s/p surgery in February 2021 but she had hardware failure for which she had surgery (removal of hardware and irrigation/debrideme nt) on 04/13/2021 by orthopedics and hospitalist team was consulted for medical management. She mentions to pain under control. No other complaints. Objective (ROS) Nursing Vitals Vital Signs (Last) Result Date Time Pulse Ox 93 04/14 2244 B/P 120/76 04/14 2244 Temp 97.9 04/14 2244 Pulse 81 04/14 2244 Resp 19 04/14 2244 O2 Delivery NASAL CANNULA 04/13 2348 O2 Flow Rate 4 04/13 2348 Physical Exam Physical Examination Notes GENERAL: [Patient is a obese female lying in bed not in apparent distress.] HEAD: [Atraumatic, normocephalic.] NECK: [Supple, no lymphadenopathy.] CARDIOVASCULAR: [S1-S2 audible, no murmurs.] RESPIRAORY: [Bilateral air entry present. No significant rales or wheezing noted.] ABDOMIN: [Soft, nontender, bowel sounds appreciated.] EXTREMITIES: [Right upper extremity dressing noted, pulses palpable bilaterally.] BUSINESS PERFORMANCE ADVISOR: [Patient awake, alert, oriented 3. No focal neurological deficits. ] PSYCHIATRIC: [Normal mood and affect. Patient not in apparent distress.] Diagnostic Data: Lab 24hr (CBC/BMP [facility]) 04/15/21 0459: [Embedded Image Not Available] Anion Gap 7, Est GFR ( Amer) 46, Est GFR (Non-Af Amer) 38, BUN/Creatinine Ratio 24, Glucose 163 H, Total Calcium 9.5, Iron 24 L, TIBC 294, Iron Saturation 8 L, Ferritin 60.0, RBC 3.74 L, MCV 87.2, MCHC 30.7 L, RDW 15.4 H, MPV 10.2, Nucleated RBCs 0.0 04/14/21 2119: Whole Bld Glucose 186 H 04/14/21 1632: Whole Bld Glucose 256 H 04/14/21 1058: Whole Bld Glucose 299 H Assessment and Plan Conclusion 1. Hardware failure 2. Nonunion of fracture of humerus 3. Atrial fibrillation 4. Hypertension 5. Diabetes 6. Obesity 7. Anemia A. fib, on oral anticoagulation. Diabetes Hypertension Anxiety/depression History of CVA Chronic anemia Obesity Right humerus fracture status post surgery 02/26/2021. Hardware failure status post removal of hardware and irrigation/debrideme nt 04/13/2021. -Patient had right humerus fracture status post surgery in February 2021 but unfortunately she had hardware failure for which she had removal of hardware and irrigation/debrideme nt done on 04/13/2021. Primary management and discharge plans per orthopedics. -Continue IV vancomycin for now. -ID input noted. -Continue metoprolol and Norvasc for history of A. fib and hypertension. Continue blood pressure monitoring. -Eliquis currently on hold. It will be resumed when approved by orthopedics. -Patient has mild elevated creatinine, 1.37 today (1.24 yesterday, unknown baseline). Continue gentle hydration. Recheck BMP in the morning. -Continue oral iron that she takes for history of chronic anemia. -Continue Lantus 5 units at bedtime and NovoLog sliding scale for now with monitoring of CBGs for history of diabetes. Patient takes oral antidiabetic medications at home which will be resumed at discharge. -PT/OT advised halfway placement. Involve social worker aide for appropriate discharge planning. -Continue other medications as ordered and supportive care. -Will continue to follow the patient for medical management. Disclaimer This dictation was created using voice recognition software. Phonetic and/or minor grammatical errors may exist. eSign Date and Time Andrés Galvin Verified/Reviewed by 04/15/21 0933 [facility] Progress Note-Hospitalist Normal [facility] PROG.IDon 04-15-2021 PROG.ID [facility] Patient Name: JOSELINE ELLIS [address] Date of : [address] [address] Unit Number: [id number] Progress Note-Infectious Dis Patient Status[place] [facility] [place]ending Doctor: Rajwinder Stout MD Service Date: 04/15/21 1145 Progress Note-Infectious Dis Subjective Subjective: Pain reasonably controlled. No new complaints today. Objective Vital Signs: Vital Signs (24hr) Date Temp Pulse Resp B/P B/P Mean Pulse Ox FiO2 04/14-04/15 97.9-98.4 80-85 19-20 120-167/70-91 93-97 Vital Signs (Last) Result Date Time Pulse Ox 97 04/15 1144 B/P 147/70 04/15 1144 Temp 98.4 04/15 1144 Pulse 80 04/15 1144 Resp 20 04/15 1144 O2 Delivery NASAL CANNULA 04/13 2348 O2 Flow Rate 4 04/13 2348 Physical Exam: Alert, oriented, no acute distress. Right arm wrapped and in a sling. Regular rate and rhythm. Breathing nonlabored. Abdomen soft, nontender. Lab Results: Lab 24hr (CBC/BMP Fishbone) 04/15/21 0459: [Embedded Image Not Available] Anion Gap 7, Est GFR ( Amer) 46, Est GFR (Non-Af Amer) 38, BUN/Creatinine Ratio 24, Glucose 163 H, Total Calcium 9.5, Iron 24 L, TIBC 294, Iron Saturation 8 L, Ferritin 60.0, RBC 3.74 L, MCV 87.2, MCHC 30.7 L, RDW 15.4 H, MPV 10.2, Nucleated RBCs 0.0 04/14/21 2119: Whole Bld Glucose 186 H 04/14/21 1632: Whole Bld Glucose 256 H Microbiology: Microbiology (72hr) Date/Time Procedure - Status Source Growth 04/13 0939 Anaerobic Culture - RES ELBOW 04/13 0938 Anaerobic Culture - RES ELBOW 04/13 0937 Surgical Culture - RES ELBOW 04/13 0937 Gram Stain - RES ELBOW 04/13 0936 Surgical Culture - RES ELBOW 04/13 09 Gram Stain - RES ELBOW Assessment/Plan Assessment/Problem List: 1. Nonunion of fracture of humerus 2. Hardware failure Postoperative hardware failure with concern for infected hardware status post ORIF of the right upper shortly (surgery 02/26/2021). Now status post hardware removal and placement of a spacer. History of diabetes. Continue vancomycin for now. However, I would favor a less potentially nephrotoxic antibiotic long-term. We will see if nursing facilities will cover daptomycin. Another alternative could be eravacycline. Patient agreeable for PICC line. Discussed with case management. Will follow. Disclaimer This dictation was created using voice recognition software. Phonetic and/or minor grammatical errors may exist. eSign Date and Time Gautam David MD Verified/Reviewed by 04/15/21 1147 [facility] Progress Note-Infectious Dis [facility] PROG.ORTHOon 04-15-2021 PROG.[facility] Patient Name: JOSELINE ELLIS [address] Date of : [address] [address] Unit Number: [id number] Progress Note-Ortho Patient Status: REG [facility] Attending Doctor: Rajwinder Stout MD Service Date: 04/15/21 1023 Progress Note - Ortho Subjective S: (2 ROS minimum) Patient is comfortable. She states she is somewhat depressed as she misses her since she has been in a facility. Pain is relatively well controlled. Objective Nursing Vitals Vital Signs (Last) Result Date Time Pulse Ox 93 04/14 2244 B/P 120/76 04/14 2244 Temp 97.9 04/14 2244 Pulse 81 04/144 Resp 19 04/14 2244 O2 Delivery NASAL CANNULA 11/29 2348 O2 Flow Rate 4 04/13 2348 General Appearance Awake alert oriented x3. No apparent distress Physical Exam Right upper extremity dressing is clean and dry. She can actively wiggle her fingers. She has had chronic numbness in all dermatomes since her initial surgery. She has good capillary refill of all fingers Diagnostic Data Lab 24hr (CBC/BMP [facility]) 04/15/21 0459: [Embedded Image Not Available] Anion Gap 7, Est GFR ( Amer) 46, Est GFR (Non-Af Amer) 38, BUN/Creatinine Ratio 24, Glucose 163 H, Total Calcium 9.5, Iron 24 L, TIBC 294, Iron Saturation 8 L, Ferritin 60.0, RBC 3.74 L, MCV 87.2, MCHC 30.7 L, RDW 15.4 H, MPV 10.2, Nucleated RBCs 0.0 04/14/21 2119: Whole Bld Glucose 186 H 04/14/21 1632: Whole Bld Glucose 256 H 04/14/21 1058: Whole Bld Glucose 299 H Assessment/Plan Conclusion 1. Nonunion of fracture of humerus 2. Humerus fracture 3. Atrial fibrillation 4. Hypertension 5. Diabetes 6. Obesity 7. Elevated serum creatinine 8. Hardware failure Stable Problems Problems not specifically addressed in the above plan are stable and do not warrant adjustment of the current method of therapy. Stay Reason/Anticipated Disch Continuing IV Antibiotics Physician Attestation Statement of Attestation Postop day #2 status post removal of hardware irrigation debridement elbow with antibiotic spacer. Patient has been staying in an extended care facility since her initial surgery. Her Gram stain on her elbow bone did show gram-positive cocci. This would explain why she had failure of hardware right least one reason why. Plan is most likely long-term IV antibiotics per the ID service. I do appreciate ID input. Patient be discharged back to extended care facility when okay with the ID service. Continue PT OT. She is nonweightbearing on the right upper extremity. ERG. I confirm that I have evaluated the patient, reviewed the history and physical, medications, diagnostic results, physical exam, assessment and plan of care of the patient. Disclaimer This dictation was created using voice recognition software. Phonetic and/or minor grammatical errors may exist. eSign Date and Time Rajwinder Stout MD Verified/Reviewed by 04/15/[address] [place], [place] [address]on Progress Note-Ortho Normal [facility] PTPNon 04-15-2021 PT Progress Note Normal [facility] PTPN Physical Therapy Inpatient Treatment Note Medical Diagnosis: s/p Removal of hardware right distal humerus, irrigation debridement of skin subcutaneous tissue muscle and bone right arm with cultures, placement antibiotic spacer right distal humerus by Dr. Stout on 04/13/2021 Demographics: Age: 71Y Gender: Female Primary Language: Maldivian Preferred Language: Maldivian [facility] Precautions/Restrict ions: NWB RUE, sling, fall risk SUBJECTIVE Patient Report: I'm so depressed I want to use my walker like that mary let me do yesterday Patient/Caregiver Goals: to go home Pain: Patient currently has pain. Patient reports a pain level of 6 out of 10. Interventions: Repositioned patient. OBJECTIVE General Observation: Patient up in chair upon arrival, tearful over loss of 4 years ago. Educated patient in great length this date re: precautions and appropriate A.D. use. Functional Activities After Today's Session: Transfers: Patient transferred sit to/from stand requiring minimal assistance of 1 person. Patient used the following equipment: Arms of chair. Patient transferred to/from the toilet requiring minimal assistance of 1 person. Patient used the following equipment: Grab bars. Locomotion/Ambulatio n: Patient was minimal assist with gait/ambulation of 1 person for 15 feet x 4 . Patient requires the following assistive device(s): Small based quad cane. Unsteadiness noted, slow ericka, decreased step length. Stairs: Not assessed. Curb Negotiation: Not assessed. AM-PAC Basic Mobility: Turning Over in Bed: A lot of difficulty Sitting/Standing Chair with Arms: A little difficulty Lying on Back to Sitting on Side of Bed: A lot of difficulty Moving To/From Bed to Chair: A little help needed Walking in Hospital Room: A little help needed Climbing 3-5 Steps with Railing: A lot of help needed [facility] PATIENT NAME: JOSELINE ELLIS [address] [facility] [address]. Chilel MEDICAL REC #: [id number] [place] [id number] ADMIT DATE: SERVICE DATE: 04/15/21 Physical Therapy Progress Note ATTENDING PHY: Rajwinder Stout MD Raw Score = 15 , AM-PAC t-Scale Score = 39.45 and G-Code Modifier = CK Vital Signs: Not assessed. Interventions: Gait Training: Functional transfer training, education on proper transfer techniques, commode transfer, standing balance w/ SBQC, gait training w/ SBQC, education on A.D. use/safety, safety awareness, review/education on precautions, education on importance of mobility and OOB activity for improved overall wellbeing, education on PoC and d/c planning. Pain Reassessment: No significant change in pain during session. Education: Education Provided: Plan of care. Precautions. Pain management. Functional transfers. Safety. Equipment. Gait. Audience: Patient. Mode: Explanation. Demonstration. Response: Demonstrated skill. Needs practice. Needs reinforcement. ASSESSMENT Response to Visit: Patient responded fair to today's visit. Patient continues to require hands on assist w/ all mobility performed at this time and demo's deficits in overall strength, mobility and activity tolerance. Continue to recommend inpatient therapy services at least 60 minutes upon d/c. Activity/Participati on Problem List and Goals: No updates at this time. Progress Toward Goals: TREATMENT GOAL REVIEW: 1. Bed mobility with IA. - Not Met: Ongoing 2. Transfers with IA. - Not Met Ongoing 3. Pt will ambulate 80ft with WBQC and maintain NWB precautions on her R UE with IA for safe homegoing. - Not Met Ongoing 4. Pt will negotiate one step without HR and IA for safe homegoing. - Not Met: Ongoing Time frame to achieve treatment goal(s): 2 weeks PLAN Treatment Frequency, Duration and Interventions: Physical Therapy is recommended for 5x/week for 2 weeks Physical Therapy treatment is to include: Endurance training, gait training, ther act, transfers, bed mobility. Recommended Physical Therapy Follow Up: Upon acute care discharge, the following is currently recommended: Inpatient Physical Therapy, AT LEAST 60 minutes per day. Patient would tolerate and benefit from multidisciplinary inpatient rehabilitation with an intensity of 3 hours/day, 5 days/week. Recommended Equipment: None issued this visit. [facility] PATIENT NAME: JOSELINE ELLIS [address] [place] [address] Dr. Chilel MEDICAL REC #: [id number] [place] [address] ADMIT DATE: SERVICE DATE: 04/15/21 Physical Therapy Progress Note ATTENDING PHY: Rajwinder Stout MD Recommended Consults: None currently. Development of Plan of Care: There was no change to plan of care today. If there are any questions regarding this service, please contact the Acute Therapy Department at extension [phone] Location of Patient at (more content not included)... Normal [facility] VANC TROUGHon 04-15-2021 VANC TROUGH 16.7 MCG/ML Normal 15.0-20.0 [facility] Comment on above: Order Comment: Campu s: MPt. Discharged Performed By: #### L 520.93741 ####[facility] [id number] [place] [address]Mj# [phone] BMPon 04-14-2021 Anion gap [Moles/Vol] 9 mmol/L Normal 5-16 [facility] Comment on above: Order Comment: Campu s: M Performed By: #### L 500.66447, L500.90765 #### [facility] [address] [place] [address] Calcium [Mass/Vol] 9.4 mg/dL Normal 8.5-10.5 [facility] Comment on above: Order Comment: Campu s: M Result Comment: NOTE NEW NORMAL RANGE DUE TO REAGENT CHANGE Performed By: #### L 500.06247, L500.54559 #### [facility] [place] [address] Chloride [Moles/Vol] 106 mmol/L Normal 98-107 [facility] Comment on above: Order Comment: Campu s: M Performed By: #### L 500.77128, L500.10993 #### [facility] [address] [place] [address] CO2 [Moles/Vol] 25.0 mmol/L Normal 21-32 [facility] Comment on above: Order Comment: Campu s: M Performed By: #### L 500.85713, L5.10161 #### [facility] [address] [place] [address] Creatinine [Mass/Vol] 1.24 mg/dL High 0.510-0.950 [facility] Comment on above: Order Comment: Campu s: M Result Comment: Nash ents receiving either N-Acetylcysteine (NAC) or Metamizole prior to venipuncture, may have falsely depressed results. Performed By: #### L 500.50912, L5.85228 #### [facility] [address] [place] [address] Glucose [Mass/Vol] 145 mg/dL High 70-100 [facility] Comment on above: Order Comment: Campu s: M Result Comment: 70-1 00- Normal Fasting; 100-125 Impaired Fasting; greater than 126 on more than one result- Diabetes. ADA guidelines. Results may be falsely elevated after the administration of Sulfapyridine. Results may be falsely depressed after the administration of Sulfasalazine. Performed By: #### L 500.56599, L5.13533 #### [facility] [address] [place] [address] Potassium [Moles/Vol] 4.4 mmol/L Normal 3.5-5.1 [facility] Comment on above: Order Comment: Campu s: M Result Comment: Slig ht Hemolysis, Result may be affected. Performed By: #### L 500.69287, L500.94163 #### [facility] [address] [place] [address] Sodium [Moles/Vol] 140 mmol/L Normal 136-145 [facility] Comment on above: Order Comment: Campu s: M Performed By: #### L 500.18294, L500.59516 #### [facility] [place] [address] Urea nitrogen [Mass/Vol] 27 mg/dL High 7-26 [facility] Comment on above: Order Comment: Campu s: M Performed By: #### L 500.01311, L500.35302 #### [facility] [address] [place] [address] Urea nitrogen/Creatinine [Mass ratio] 22 mg/mg Normal 15-24 [facility] Comment on above: Order Comment: Campu s: M Performed By: #### L 500.33833, L500.97476 #### [facility] [address] [place] [address] CBC W/DIFFon 04-14-2021 BASO ABS 0.00 K/CU MM Normal 0-0.2 [facility] Comment on above: Order Comment: Campu s: M Performed By: #### L 200.00168 ####[facility] [id number] [place] [id number]# [phone] Basophils/100 WBC (Bld) 0.2 % Normal 0-2 M [facility] Comment on above: Order Comment: Campu s: M Performed By: #### L 200.27446 ####[facility] [id number] [place] [id number]# [phone] EOS ABS 0.10 K/CU MM Normal 0-0.5 [facility] Comment on above: Order Comment: Campu s: M Performed By: #### L 200.85645 ####[facility] [id number] [place], [place] [address]Ph# [phone] Eosinophils/100 WBC (Bld) 1.5 % Normal 0-5 [facility] Comment on above: Order Comment: Campu s: M Performed By: #### L 200.56217 ####[facility] [id number] [place], [place] [address]Fb# [phone] Erythrocyte distribution width (RBC) [Ratio] 15.2 % High 11-14.5 [facility] Comment on above: Order Comment: Campu s: M Performed By: #### L 200.63606 ####[facility] [id number] [place], [place] [address]Ph# [phone] Hematocrit (Bld) [Volume fraction] 30.1 % Low 35.0-47.0 [facility] Comment on above: Order Comment: Campu s: M Performed By: #### L 200.11970 ####[place] [address]Ph# [phone] Hemoglobin (Bld) [Mass/Vol] 9.7 g/dL Low 11.5-15.5 [facility] Comment on above: Order Comment: Campu s: M Performed By: #### L 200.29748 ####[facility] [id number] [place], [place] [address]Ph# [phone] IMMATR GRAN ABS 0.00 K/CU MM Normal Less than 2 [facility] Comment on above: Order Comment: Campu s: M Performed By: #### L 200.32591 ####[facility] [id number] [place], [place] [address]Ph# [phone] IMMATURE GRAN % 0.3 % Normal Less than 2 [facility] Comment on above: Order Comment: Campu s: M Performed By: #### L 200.49080 ####[facility] [id number] [place] [address]Ep# [phone] LYMPH ABS 1.80 K/CU MM Normal 0.9-4.4 [facility] Comment on above: Order Comment: Campu s: M Performed By: #### L 200.28455 ####[facility] [id number] [place], [place] [address]Fw# [phone] Lymphocytes/100 WBC (Bld) 19.4 % Low 20-40 [facility] Comment on above: Order Comment: Campu s: M Performed By: #### L 200.88142 ####[address] [address]Yy# [phone] MCHC (RBC) [Mass/Vol] 32.2 g/dL Normal 32.0-36.0 [facility] Comment on above: Order Comment: Campu s: M Performed By: #### L 200.09211 ####[address] [address]Nx# [phone] MCV (RBC) [Entitic vol] 85.0 fL Normal 80.0-99.0 [facility] Comment on above: Order Comment: Campu s: M Performed By: #### L 200.98719 ####[facility] [id number] [place] [address]Am# [phone] MONO ABS 0.50 K/CU MM Normal 0.1-1.1 [facility] Comment on above: Order Comment: Campu s: M Performed By: #### L 200.76925 ####[address] [address]Wc# [phone] Monocytes/100 WBC (Bld) 5.6 % Normal 2-10 M [facility] Comment on above: Order Comment: Campu s: M Performed By: #### L 200.75731 ####[facility] [id number] [place] [address]Em# [phone] NEUTROPHIL ABS 6.60 K/CU MM Normal 2.0-8.3 [facility] Comment on above: Order Comment: Campu s: M Performed By: #### L 200.83359 ####[facility] [id number] [place], [place] [address]Ph# [phone] Neutrophils/100 WBC (Bld) 73.0 % Normal 45-75 [facility] Comment on above: Order Comment: Campu s: M Performed By: #### L 200.54537 ####[facility] [id number] [place], [place] [address]Rp# [phone] Nucleated RBC/100 WBC (Bld) [Ratio] 0.0 % Normal Less than 1 [facility] Comment on above: Order Comment: Campu s: M Performed By: #### L .03976 ####[facility] [id number] [place] [address]Jo# [phone] Platelet mean volume (Bld) [Entitic vol] 10.4 fL Normal 9.4-12.4 [facility] Comment on above: Order Comment: Campu s: M Performed By: #### L 200.80184 ####[facility] [id number] [place] [address]Bx# [phone] PLT 222 K/CU MM Normal 150-450 [facility] Comment on above: Order Comment: Campu s: M Performed By: #### L 200.50622 ####[facility] [id number] [place] [address]Zp# [phone] RBC 3.54 M/CU MM Low 3.90-5.30 [facility] Comment on above: Order Comment: Campu s: M Performed By: #### L 200.24323 ####[facility] [id number] [place] [address]Rt# [phone] WBC 9.1 K/CUMM Normal 4.5-11.0 [facility] Comment on above: Order Comment: Campu s: M Performed By: #### L .24341 ####[facility] [id number] [place] [address]Hn# [phone] GFR ESTon 04-14-2021 IF AMER 52 Normal [facility] Comment on above: Order Comment: Campu s: M Performed By: #### L 500.20245, L500.57668 #### [facility] [address] [place] [address] IF non-AFR AMER 43 Normal [facility] Comment on above: Order Comment: Campu s: M Performed By: #### L 500.64737, L500.46390 #### [facility] [address] [place] [address] GLUCOSE METERon 04-14-2021 Glucose [Mass/Vol] 186 mg/dL High 85-125 [facility] Glucose [Mass/Vol] 256 mg/dL High 85-125 [facility] Glucose [Mass/Vol] 299 mg/dL High 85-125 [facility] Glucose [Mass/Vol] 295 mg/dL High 85-125 [facility] Glucose [Mass/Vol] 169 mg/dL High 85-125 [facility] HP.IMS.CONon 04-14-2021 CONSULTATION-H&P Normal [facility] HP.IMS.CON [facility] Patient Name: JOSELINE ELLIS [address] [place] [address] Date of : [address] [place] [address] Unit Number: [id number] CONSULTATION-HandP Patient [place] [facility] Attending Doctor: Rajwinder Stout MD Service Date: 04/14/21 1120 History of Present Illness Referring Physician Rajwinder Stout MD Reason for Consult Possible postoperative infection History of Present Illness 71 yo F with hx of osteopenia, diabetes, s/p fall in early January of this year with a right distal humerus fracture. Pt underwent ORIF of the RUE on 02/26/21. Post op course was complicated by hardware failure. Pt was seen by orthopedic surgery. She underwent surgery yesterday with hardware removal. Serous, blood-tinged fluid was encountered and sent for culture. Bone culture was sent as well. Spacer was placed. Right elbow bone culture specimen has a Gram stain showing rare white cells and rare gram-positive cocci. Cultures are negative after 24 hours. Currently on Zosyn. Also did receive perioperative vancomycin. Patient says she was at a rehab facility and was told that she had some swelling and subtle redness of the right arm. She says she was started on an antibiotic by mouth which she was taking up until the time of surgery here. Patient has also had some numbness of her right fingers. No fevers or chills. She has not been feeling systemically ill. Past Medical/Surgical Hx Past Medical History Diabetes Atrial fibrillation HTN CVA Anxiety Depression Sleep apnea breast lump Osteopenia History of right distal humerus fracture Past Surgical History ORIF right humerus Family/Social History Family Hx Other/Comment Family history of diabetes and cardiovascular disease. Social Hx Former smoker. Allergies/Home Medications Allergies Coded Allergies: FOSINOPRIL (Intermediate, 04/10/21) OXYCODONE (Intermediate, 04/10/21) PIOGLITAZONE (Intermediate, 04/10/21) Home Medications Acetaminophen (Mapap) 500 MG CAPSULE 500 MG PO QAM, Ref 0 (Reported) Entered as Reported by NACHO GIBSON on 04/06/21 0906 Last Action: Held on 04/13/21 163 by ADRIEL ROSENBERG Amlodipine Besylate 10 MG TABLET 10 MG PO QAM, Ref 0 (Reported) Entered as Reported by NACHO GIBSON on 04/06/21 1328 Last Action: Converted on 04/13/21 163 by ADRIEL ROSENBERG Apixaban (Eliquis) 5 MG TABLET 5 MG PO BID, Ref 0 (Reported) WILL VERIFY WHEN TO STOP PRIOR TO 04/13 SURGERY Entered as Reported by NACHO GIBSON on 04/07/21 1134 Last Action: Held on 04/13/21 163 by ADRIEL ROSENBERG Ferrous Sulfate 325 MG TABLET 325 MG PO QAM, Ref 0 (Reported) Entered as Reported by NACHO GIBSON on 04/06/21 1326 Last Action: Continued on 04/13/21 163 by ADRIEL ROSENBERG Furosemide (Lasix) (Furosemide 40MG Tablet) 40 MG UDTAB 40 MG PO QAM, Ref 0 (Reported) Entered as Reported by NACHO GIBSON on 04/06/21 1328 Last Action: Held on 04/13/21 1632 by ADRIEL ROSENBERG Glimepiride* (Amaryl 2MG Tab*) 2 MG TAB 2 MG PO QDAYWM, Ref 0 (Reported) Entered as Reported by NACHO GIBSON on 04/06/21 1331 Last Action: Held on 04/13/21 163 by ADRIEL ROSENBERG Linagliptin (Tradjenta) 5 MG TABLET 5 MG PO QAM, Ref 0 (Reported) Entered as Reported by NACHO GIBSON on 04/07/21 1136 Last Action: Held on 04/13/21 163 by ADRIEL ROSENBERG Losartan Potassium (Cozaar) (Cozaar 50 MG Tablet) 50 MG TABLET 50 MG PO BID, Ref 0 ( Reported) Entered as Reported by NACHO GIBSON on 04/06/21 1329 Last Action: Held on 04/13/21 163 by ADRIEL ROSENBERG Metformin HCl (Metformin HCl ER) 1,000 MG [id number] 1,000 MG PO BID, Ref 0 (Reported) Entered as Reported by NACHO GIBSON on 04/06/21 1329 Last Action: Held on 04/13/21 163 by ADRIEL ROSENBERG Metoprolol Tartrate (Lopressor) 50 MG TABLET 50 MG PO QAM, Ref 0 (Reported) Entered as Reported by NACHO GIBSON on 04/06/21 1327 Last Action: Continued on 04/13/21 163 by ADRIEL ROSENBERG Oxybutynin Chloride (Ditropan XL Tab) 15 MG TAB.ER.24 15 MG PO QDAY, Ref 0 ( Reported) Entered as Reported by NACHO GIBSON on 04/06/21 132 Last Action: Continued on 04/13/21 163 by ADRIEL ROSENBERG Sennosides/Docusate Sodium (Senna-Docusate Sodium Tablet) 1 EACH TABLET 2 EACH PO QHSPRN PRN CONSTIPATION, Ref 0 (Reported) Entered as Reported by NACHO GIBSON on 04/07/21 113 Last Action: Held on 04/13/21 163 by ADRIEL ROSENBERG Sertraline HCl (Zoloft) (Zoloft 100MG Tablet) 100 MG UDTAB 100 MG PO QAM, Ref 0 ( Reported) Entered as Reported by NACHO GIBSON on 04/06/21 1329 Last Action: Continued on 04/13/21 163 by ADRIEL ROSENBERG Simvastatin (Zocor) (Zocor 20MG Tablet) 20 MG TAB 20 MG PO QHS, Ref 0 (Reported) Entered as Reported by NACHO GIBSON on 04/06/21 1331 Last Action: Converted on 04/13/21 1631 by ADRIEL ROSENBERG Sitagliptin Phosphate* (Januvia Tab*) 100 MG TABLET 100 MG PO QDAYWM, Ref 0 (Reported) Entered as Reported by NACHO GIBSON on 04/06/21 1328 Last Action: Held on 04/13/21 1632 (more content not included)... [facility] OTARon 04-14-2021 OT Assessment Report [facility] PHA.[facility] 04-14-2021 PHA.[facility] Patient Name: JOSELINE ELLIS [address] [place] [address] Date of : [address] [address] Unit Number: [id number] Pharmacy Note [place] [facility] Doctor: Rajwinder Stout MD Service Date: 04/14/21 1259 Pharmacy Note - CHERIE INIT Initial Note Subjective: Pharmacy to dose vancomycin Assessment: * Patient is a 71 year old Female who was admitted for hardware removal/osteomyeliti s. Patient has been initiated on vancomycin. * Height (cm): 157.48 * BMI (kg/m2): 40.2 * Actual weight (kg): 99.79 * Dosing weight (adjusted body weight) (kg): 69.9 LABS 04/14/21 0524: Creatinine 1.24 H Plan: 1. Will dose vancomycin 1.5gm ( 15 mg/kg based on actual body weight) every 24 hours given patient's renal function, age, and weight. 2. Will target goal trough 15-25 for osteomyelitis. 3. Will order trough before third dose of this regimen and adjust as necessary. Disclaimer This dictation was created using voice recognition software. Phonetic and/or minor grammatical errors may exist. eSign Date and Time Karina Pendleton PharmD Verified/Reviewed by 04/14/21 1312 [facility] Pharmacy Note [facility] [place] [facility] [place] [facility] Patient Name: JOSELINE ELLIS [facility] Date of : [address] [address] Unit Number: [id number] Progress Note-Hospitalist Patient Status: REG SDC Attending Doctor: Rajwinder Stout MD Service Date: 04/14/211628 Chief Complaint Chief Complaint Medical consult, hypertension Subjective S: (2 ROS minimum) Patient states she has some pain in her right arm she rates it a 5 out of 10 in intensity. No associated fevers chills nausea or vomiting. She states the pain medication helps. Denies fever and chills Objective (ROS) Nursing Vitals Vital Signs (Last) Result Date Time Pulse Ox 93 04/14 1130 B/P 113/73 04/14 1130 Temp 98.1 04/14 1130 Pulse 86 04/14 1130 Resp 18 04/14 113 O2 Delivery NASAL CANNULA 04/13 2348 O2 Flow Rate 4 04/13 2348 Physical Exam Physical Examination Notes General: Obese female, patient is alert and oriented x3 and is in no acute respiratory distress HEENT: Normal cephalic, atraumatic, PERRLA Lungs: Clear to auscultation, no wheezing, rales, or rhonchi. Cardiac: Regular rhythm and rate, no murmurs Abdomen: Soft, nontender, nondistended, bowel sounds are active. Extremities: Right arm is wrapped post procedure. No lower extremity edema, cyanosis, or clubbing. Skin: No rashes or breakdown. Musculoskeletal: Normal MS exam, moves all extremities Lymphatic: Negative cervical, supra-clavicular, groin lymphadenopathy. Neurologic: Cranial nerves from II-XII intact grossly, no focal deficits. Psychiatry: Normal affect. Diagnostic Data: Lab 24hr (CBC/BMP [facility]) 04/14/21 1058: Whole Bld Glucose 299 H 04/14/21 0559: Whole Bld Glucose 295 H 04/14/21 0524: [Embedded Image Not Available] Anion Gap 9, Est GFR ( Amer) 52, Est GFR (Non-Af Amer) 43, BUN/Creatinine Ratio 22, Glucose 145 H, Total Calcium 9.4, RBC 3.54 L, MCV 85.0, MCHC 32.2, RDW 15.2 H, MPV 10.4, Immature Gran % (Auto) 0.3, Abs Immat Gran (auto) 0.00, Seg Neutrophils % 73.0, Lymphocytes % 19.4 L, Monocytes % 5.6, Eosinophils % 1.5, Basophils % 0.2, Neutrophils # 6.60, Lymphocytes # 1.80, Monocytes # 0.50, Eosinophils # 0.10, Basophils # 0.00, Nucleated RBCs 0.0 04/13/21 2228: Whole Bld Glucose 169 H 04/13/21 1839: Whole Bld Glucose 241 H Assessment and Plan Conclusion 1. Humerus fracture Orthopedic surgery is primary service, awaiting culture results. Patient is currently on vancomycin, ID is managing antibiotics. White blood cell count today was 9.1. Orthopedic surgery had placed an antibiotic spacer. PT OT following and recommending some therapy. Placement thought to be needed later at discharge On TueApr 13, 2021 ADRIEL ROSENBERG wrote Patient is being followed by orthopedics who is the primary service. Patient underwent removal of hardware irrigation debridement cultures and antibiotic spacer. Orthopedic surgery is worried that there may be an infection. Patient is currently on vancomycin. Await culture results. Add Zosyn, consult infectious disease 2. Atrial fibrillation Patient's Eliquis is on hold due to recent surgery, appreciate Ortho input as to when this can be resumed continue with metoprolol On TueApr 13, 2021 ADRIEL ROSENBERG wrote Patient Eliquis to be held due to recent surgery, appreciate orthopedics input as to when this may be able to be plan to continue with metoprolol 3. Hypertension Blood pressure 113/73 on last check continue with amlodipine and metoprolol losartan remains on hold due to recent elevated creatinine readings On TueApr 13, 2021 ADRIEL ROSENBERG wrote Continue with amlodipine and metoprolol, preoperative testing showed elevated serum creatinine. Will hold losartan for now 4. Diabetes Blood sugars have been elevated today, continue on sliding scale insulin we will add some long-acting insulin. Normally her diabetes is reasonably controlled with an A1c of 6.6 On TueApr 13, 2021 ADRIEL ROSENBERG wrote Order sliding scale insulin. Will hold home oral medications. 5. Obesity Encourage diet and exercise once able to medically cleared BMI was previously calculated at 40.2. On Mon 4:30p Apr 13, 2021 ADRIEL ROSENBERG wrote Encourage diet and exercise once able to medically cleared. BMI calculated 40.2, patient classified as morbidly obese 6. Elevated serum creatinine Creatinine down to 1.24 today, continue with IV fluids. Baseline creatinine is unknown. Continue to monitor On Tue:30p Apr 13, 2021 ADRIEL ROSENBERG wrote Elevated serum creatinine/possible CRISTIAN, will wait for repeat labs in the a.m. On presurgical testing creatinine was elevated at 1.46. Unknown baseline from patient as there are no other old labs to compare against. Will order some IV fluid 7. Anemia Hemoglobin down to 9.7 from presurgical testing at 10.8. Will check iron studies (more content not included)... [facility] Progress Note-Hospitalist [facility] PROG.ORTHOon 04-14-2021 PROG.[facility] Patient Name: JOSELINE ELLIS [address] Date of : [address] [address] Unit Number: [id number] Progress Note-Ortho [place] [facility] [place]ending Doctor: Rajwinder Stout MD Service Date: 04/14/21 1434 Progress Note - Ortho Subjective S: (2 ROS minimum) Patient is sitting up in a chair and has good pain control. She states she can actually move her wrist a little better than she could preoperatively. She still complains of diffuse numbness in her fingers in all dermatomes. This was present since her last surgery Objective Nursing Vitals Vital Signs (Last) Result Date Time Pulse Ox 93 04/14 1130 B/P 113/73 04/14 1130 Temp 98.1 04/14 1130 Pulse 86 04/14 1130 Resp 18 04/14 1130 O2 Delivery NASAL CANNULA 04/13 2348 O2 Flow Rate 4 04/13 2348 General Appearance Awake alert [place] x3. No apparent distress Physical Exam Her splint is clean and dry. She is actively able to bend and extend her fingers. She does have some wrist extension but still has some chronic weakness it is about 3+/4 out of 5. She still complains of diffuse numbness in all fingers in all dermatomes Diagnostic Data Lab 24hr (CBC/BMP [facility]) 04/14/21 1058: Whole Bld Glucose 299 H 04/14/21 0559: Whole Bld Glucose 295 H 04/14/21 0524: [Embedded Image Not Available] Anion Gap 9, Est GFR ( Amer) 52, Est GFR (Non-Af Amer) 43, BUN/Creatinine Ratio 22, Glucose 145 H, Total Calcium 9.4, RBC 3.54 L, MCV 85.0, MCHC 32.2, RDW 15.2 H, MPV 10.4, Immature Gran % (Auto) 0.3, Abs Immat Gran (auto) 0.00, Seg Neutrophils % 73.0, Lymphocytes % 19.4 L, Monocytes % 5.6, Eosinophils % 1.5, Basophils % 0.2, Neutrophils # 6.60, Lymphocytes # 1.80, Monocytes # 0.50, Eosinophils # 0.10, Basophils # 0.00, Nucleated RBCs 0.0 04/13/21 2228: Whole Bld Glucose 169 H 04/13/21 1839: Whole Bld Glucose 241 H 04/13/21 1622: Whole Bld Glucose 293 H Assessment/Plan Conclusion 1. Nonunion of fracture of humerus 2. Humerus fracture 3. Atrial fibrillation 4. Hypertension 5. Diabetes 6. Obesity 7. Elevated serum creatinine 8. Hardware failure Stable Problems Problems not specifically addressed in the above plan are stable and do not warrant adjustment of the current method of therapy. Stay Reason/Anticipated Disch Continuing IV Antibiotics Physician Attestation Statement of Attestation Patient is plus extended female postop day #1 status post removal of hardware and placement antibiotic spacer. Her Gram stain did grow gram-positive cocci. I appreciate infectious disease input. Patient understands she will need IV antibiotics for period of 6 to 8 weeks. I told her that I am glad we did not implant a total elbow secondary to the above findings. Although there was no gross purulence. I was concerned for infection secondary to the hardware failure. We will await IV antibiotic recommendations. We will continue antibiotic spacer for at least 2 months. Patient understands plan. ERG I confirm that I have evaluated the patient, reviewed the history and physical, medications, diagnostic results, physical exam, assessment and plan of care of the patient. Disclaimer This dictation was created using voice recognition software. Phonetic and/or minor grammatical errors may exist. eSign Date and Time Rajwinder Stout MD Verified/Reviewed by 04/14/21 1435 [facility] Progress Note-Ortho [facility] PTARon 04-14-2021 PT Assessment Report [facility] FLUOROSCOPY IN OR/PAIN MGTon 04-13-2021 FLUOROSCOPY IN OR/PAIN MGT FLUOROSCOPY IN OR/PAIN MGT Ordering Physician: Rajwinder Stout MD 04/13/2021 8:46 AM FLUOROSCOPY IN OR Clinical Statement: Displaced transcondylar fracture right humerus Comparison: None FINDINGS: Operative fluoroscopy was provided to Dr. Stout who performed the procedure. 6 fluoroscopic images were submitted during surgical intervention. 9.7 seconds of fluoroscopic time was utilized during the procedure. Bone detail is significantly obscured by fluoroscopic technique. There is a displaced transcondylar fracture of the distal humerus. IMPRESSION: Report generated to document fluoroscopic time utilized in the OR. This report was electronically signed by Pavan Higgins MD 04/13/2021 8:51 AM Reported By: PAVAN HIGGINS M.D. Signed By: PAVAN HIGGINS M.D. [facility] GLUCOSE METERon 04-13-2021 Glucose [Mass/Vol] 241 mg/dL High 85-125 [facility] Glucose [Mass/Vol] 293 mg/dL High 85-125 [facility] Glucose [Mass/Vol] 170 mg/dL High 85-125 [facility] HP.IMS.CONon 04-13-2021 [facility] Patient Name: JOSELINE ELLIS [address] Date of : [address] [address] Unit Number: [id number] CONSULTATION-HandP Patient [place] [facility]ending Doctor: Rajwinder Stout MD Service Date: 04/13/21 1617 History of Present Illness History of Present Illness The patient is a 71-year-old female past medical history of paroxysmal A. fib CVA LEIGH ANN diabetes hypertension anemia anxiety depression presented to the hospital today for elective procedure with orthopedics Dr. Stout. The patient stated the problems with her right arm started back in January when she fell and broke her arm. She spent some time in a splint and saw orthopedic surgery. They later performed surgery in February. Since that time, she has been having pain with movement. Pain was located near the right elbow and radiated up towards the right shoulder. She denies any pain at this time as she states the block has helped Past Medical/Surgical Hx Past Medical History paroxysmal A. fib CVA LEIGH ANN diabetes hypertension anemia anxiety depression Past Surgical History Hysterectomy, cervical surgery, hand surgery, arm surgery Family/Social History Family Hx Other/Comment Mother: history of cerebral hemorrhage Father: history of diabetes hypertension heart disease and cancer Substances Reports use of: Alcohol (rare). Denies use of: Tobacco (remote history), Recreational Drugs. Social Hx Patient is Advance Directives Advance Directives Full Code Allergies/Home Medications Allergies Coded Allergies: FOSINOPRIL (Intermediate, 04/10/21) OXYCODONE (Intermediate, 04/10/21) PIOGLITAZONE (Intermediate, 04/10/21) Home Medications Acetaminophen (Mapap) 500 MG CAPSULE 500 MG PO QAM, Ref 0 (Reported) Entered as Reported by NACHO GIBSON on 04/06/21 0906 Last Action: Reviewed on 04/13/21736 by LINWOOD STAUFFER Amlodipine Besylate 10 MG TABLET 10 MG PO QAM, Ref 0 (Reported) Entered as Reported by NACHO GIBSON on 04/06/21 1328 Last Action: Reviewed on 04/13/21736 by LINWOOD STAUFFER Apixaban (Eliquis) 5 MG TABLET 5 MG PO BID, Ref 0 (Reported) WILL VERIFY WHEN TO STOP PRIOR TO 04/13 SURGERY Entered as Reported by NACHO GIBSON on 04/07/21 1134 Last Action: Reviewed on 04/13/21736 by LINWOOD STAUFFER Ferrous Sulfate 325 MG TABLET 325 MG PO QAM, Ref 0 (Reported) Entered as Reported by NACHO GIBSON on 04/06/21 1326 Last Action: Reviewed on 04/13/21736 by LINWOOD STAUFFER Furosemide (Lasix) (Furosemide 40MG Tablet) 40 MG UDTAB 40 MG PO QAM, Ref 0 (Reported) Entered as Reported by NACHO GIBSON on 04/06/21 1328 Last Action: Reviewed on 04/13/21736 by LINWOOD STAUFFER Glimepiride* (Amaryl 2MG Tab*) 2 MG TAB 2 MG PO QDAYWM, Ref 0 (Reported) Entered as Reported by NACHO GIBSON on 04/06/21 1331 Last Action: Reviewed on 04/13/21736 by LINWOOD STAUFFER Linagliptin (Tradjenta) 5 MG TABLET 5 MG PO QAM, Ref 0 (Reported) Entered as Reported by NACHO GIBSON on 04/07/211135 Last Action: Reviewed on 04/13/21736 by LINWOOD STAUFFER Losartan Potassium (Cozaar) (Cozaar 50 MG Tablet) 50 MG TABLET 50 MG PO BID, Ref 0 ( Reported) Entered as Reported by NACHO GIBSON on 04/06/211328 Last Action: Reviewed on 04/13/21736 by LINWOOD STAUFFER Metformin HCl (Metformin HCl ER) 1,000 MG [id number] 1,000 MG PO BID, Ref 0 (Reported) Entered as Reported by NACHO GIBSON on 04/06/211328 Last Action: Reviewed on 04/13/21736 by LINWOOD STAUFFER Metoprolol Tartrate (Lopressor) 50 MG TABLET 50 MG PO QAM, Ref 0 (Reported) Entered as Reported by NACHO GIBSON on 04/06/211326 Last Action: Reviewed on 04/13/21736 by LINWOOD STAUFFER Oxybutynin Chloride (Ditropan XL Tab) 15 MG TAB.ER.24 15 MG PO QDAY, Ref 0 ( Reported) Entered as Reported by NACHO GIBSON on 04/06/211326 Last Action: Reviewed on 04/13/21736 by LINWOOD STAUFFER Sennosides/Docusate Sodium (Senna-Docusate Sodium Tablet) 1 EACH TABLET 2 EACH PO QHSPRN PRN CONSTIPATION, Ref 0 (Reported) Entered as Reported by NACHO GIBSON on 04/07/21 113 Last Action: Reviewed on 04/13/21736 by LINWOOD STAUFFER Sertraline HCl (Zoloft) (Zoloft 100MG Tablet) 100 MG UDTAB 100 MG PO QAM, Ref 0 ( Reported) Entered as Reported by NACHO GIBSON on 04/06/21 1329 Last Action: Reviewed on 04/13/21736 by LINWOOD STAUFFRE Simvastatin (Zocor) (Zocor 20MG Tablet) 20 MG TAB 20 MG PO QHS, Ref 0 (Reported) Entered as Reported by NACHO GIBSON on 04/06/21 1331 Last Action: Reviewed on 04/13/21736 by LINWOOD STAUFFER Sitagliptin Phosphate* (Januvia Tab*) 100 MG TABLET 100 MG PO QDAYWM, Ref 0 (Reported) Entered as Reported by NACHO GIBSON on 04/06/21 1328 Last Action: Reviewed on 04/13/21736 by LINWOOD STAUFFER Sulfamethoxazole/Tri methoprim (Bactrim Ds Tablet) 1 EACH TABLET 1 EACH PO QAM, Ref 0 ( Reported) CELLULITIS RIGHT ARM LAST DOSE 04/12/21 Enter (more content not included)... [facility] OR.OPRPTon 04-13-[address] 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 Postoperative Diagnosis: Same Procedure Type: Removal of hardware right distal humerus, irrigation debridement of skin subcutaneous tissue muscle and bone right arm with cultures, placement antibiotic spacer right distal humerus Anesthesia: General endotracheal anesthesia and regional block Estimated Blood Loss: 10 cc IV Fluids: Crystalloid Complications: None Findings/Specimens: No gross purulence noted but there was serous fluid found at the nonunion site with devascularized bone Procedure Details: Patient is 71-year-old female with multiple medical problems including diabetes and atrial fibrillation on anticoagulation. Patient aware of reduction from fixation of a right distal humeral fracture by Dr. Guy in [place] several weeks ago. Patient was found to have failed hardware on postoperative visits. She was seen in my office approximately 10 days ago. Patient's x-rays were reviewed with her. Patient states she also has a diagnosis of osteopenia. She had failure of her hardware. The risk benefits operative versus nonoperative treatment were discussed extensively with the patient and the family in the room. I discussed with her that we could do removal of hardware try to ensure that there is no infection in total elbow arthroplasty to help gain some motion and comfort. Patient did have significant amount of pain with elbow movement. Patient also states she had numbness throughout her whole hand. On physical examination her incision was healed. Today there was noted to be some scabbing around her incision which was a little concerning. There is no active drainage. Patient's her vascular exam demonstrated that she had decree sensation in the distribution of all nerves medial radial and ulnar. She did have some weakness with wrist extension and finger extension preoperatively. Globally she demonstrated hand weakness which she stated she has had since surgery initially. I cannot really get a good sense that this is in one nerve distribution. I discussed with the patient and the [id number] preoperatively that if the fluid looked as though there could be infection that I would send cultures placed an antibiotic spacer and wait to do her definitive total elbow. They agreed to proceed. Informed consent was obtained. The right arm was marked in the preoperative area as proper operative site. Patient is brought to the operating room placed supine on the operating table. Head and neck were positioned by anesthesia staff monitored anesthesia that the procedure. General anesthesia was induced without complication. She was then placed in the left lateral decubitus position with the right side up. All bony problems well-padded. The right upper extremities and prepped and draped normal sterile fashion. Time was performed right arm was identified as proper operative arm. Antibiotics given prior skin session. Incision was made in line with her previous incision. We dissected through skin subcutaneous tissue maintaining careful hemostasis left cautery. We then feel this triceps from lateral to medial. We then bluntly dissected down to the nonunion site. There was some bony overgrowth over her posterior lateral plate. There was a moderate amount of serous blood-tinged fluid expressed. This was sent for Gram stain and culture. The posterior lateral plate was removed without complication. We then took the triceps as the one very large sleeve medial. Carefully retracting on the right along the bone we then bluntly dissected over to the medial plate. This was also removed without complication. Bony overgrowth and some fibrous union was all thoroughly debrided using a rongeur. Bone was sent for culture as well. X-ray was taken which showed the most distal intra-articular block to still be present. This was then dissected out of the olecranon. All of the fractured bone was removed. Rondure and curettes were used to debride the subcutaneous tissue muscle and bone. Wound was thoroughly irrigated with irrisept as well as normal saline. We then mixed 1 batch of cement with gentamicin and one g of vancomycin. Once the cement slightly hardened this was placed in the bony void. Prolene suture was used to close the deep fascia. Subcutaneous tissue was closed with 3-0 Monocryl suture. Skin was closed with higinio. A sterile dressing and posterior splint was applied. Patient was awakened and transferred to PACU without complication. Plan will be to follow cul (more content not included)... Normal [facility] [facility] PICC LINEon 04-13-2021 PICC LINE PICC LINE CATHETER REPOSITION CLINICAL DATA: Patient needs long-term intravenous antibiotics. Inadequate position of the existing left upper extremity PICC line catheter. The referring physician has requested catheter reposition or exchange. COMPARISON: 04/15/2021. FINDINGS: The advantages, alternatives and possible complications of PICC line catheter reposition or exchange were discussed with the patient who understood the discussion and provided signed consent for the procedure. Time out was performed prior to the study. Fluoroscopic evaluation of the chest and shoulder areas demonstrated that the existing left upper extremity PICC line catheter is located at the left internal jugular vein. The surgical site was cleaned, prepped and draped. Maximal sterile barrier technique was used throughout the complete procedure. Local anesthesia was given to the soft tissues with lidocaine 1%. A guidewire was advanced through the existing PICC line catheter and used to reposition the catheter into an adequate central position. The tip of the catheter was placed at the junction of the superior vena cava and right atrium. There was good aspiration and injection of the catheter that was flushed with sterile NS and hep locked. The catheter was secured to the skin with 2 stitches. The patient tolerated the procedure well and there were no immediate complications. Cumulative dose: 242 mGy. Fluoroscopy time: 2 minutes. Estimated blood loss: Minimal. Medications: Lidocaine 1% (6 cc). IMPRESSION: 1. Successful reposition of a left upper extremity PICC line catheter as described above. 2. No immediate complications. This report was electronically signed by Eliel Montiel MD 04/16/2021 8:03 PM Reported By: ELIEL MONTIEL MD Signed By: ELIEL MONTIEL MD [facility] PORTABLE CHESTon 04-13-2021 PORTABLE CHEST EXAMINATION: CHEST RADIOGRAPH (PORTABLE SINGLE VIEW AP) Exam Date/Time: 04/16/2021, 12:17 PM CLINICAL HISTORY: PICC line placement. MQ: XCPR_5 Comparison: None RESULT: Lines, tubes, and devices: Left-sided PICC catheter with the catheter coursing up the left neck likely within the internal jugular vein. The tip is out of the [id number]. Lungs and pleura: The lungs are clear without consolidation or edema. Probable trace right pleural effusion. No pneumothorax. Cardiomediastinal silhouette: Preserved cardiomediastinal silhouette. Other: Thoracic spondylosis. Postsurgical changes of ACDF of the lower cervical spine, partially visualized. IMPRESSION: Left-sided PICC with the catheter coursing cranially along the left neck, likely within the internal jugular vein, tip out of the mzsyf-ad-toit. Recommend repositioning. Trace right pleural effusion. This report was electronically signed by Caitlin Chandra MD 04/16/2021 12:31 PM Reported By: CAITLIN CHANDRA M.D. Signed By: CAITLIN CHANDRA M.D. [facility] Patient: JOSELINE ELLIS SPECIMEN: [id number] Collection Date: 04/13/21 Received: 04/13/21 Status: MELODY Murry. Dr.: Rajwinder Stout MD Ph# Othr. Dr.: Bernie Reagan MD Material for Examination: A RIGHT HUMERUS HARDWARE PRE-OP DIAGNOSIS: DISPLACED TRANSCONDYLAR FRACTURE RIGHT HUMERUS, NON-HEALING POST-OP DIAGNOSIS: SAME SURGICAL PROCEDURE: REMOVAL OF HARDWARE RIGHT HUMERUS, CULTURES, AND PLACEMENT OF ANTIBIOTIC SPACER DIAGNOSIS A. Right humerus hardware: Medical hardware grossly consistent with 2 brackets and 12 screws. Gross only. GROSS DESCRIPTION The specimen is received fresh and labeled with the patient's name, ID and designated right humerus hardware for gross examination, is medical hardware grossly consistent with 2 brackets, 8.0 x 1.6 x 0.2 cm and 9.2 x 1.2 x 0.2 cm. Also identified are 12 screws ranging in size from 1.5 x 0.5 x 0.5 cm to 3.4 x 0.5 x 0.5 cm. No tissue is identified. Gross only. MICROSCOPIC DESCRIPTION Gross examination only. COPIES TO: Rajwinder Stout MD, Efewongbe B MD Signed Verified/Reviewed by JAVIER YOUNG MD 04/13/21 This dictation was created using voice recognition software. Phonetic and/or minor grammatical errors may exist. [facility] NAME: JOSELINE ELLIS [facility] UNIT#: [id number] LOC: [facility] Building Services Supervisor: Marisa Hobson M.D. [facility]#: [id number] ROOM/BED: [id number] Accent : 52 AGE/SEX: 71/F ORD.Rajwinder Mobley MD END OF REPORT Normal [facility] BMPon 04-07-2021 Anion gap [Moles/Vol] 11 mmol/L Normal 5-16 [facility] Comment on above: Performed By: #### L 500.22740, L500.54179 ####[facility] [id number] [place], [place] [address]Gp# [phone] Calcium [Mass/Vol] 10.0 mg/dL Normal 8.5-10.5 [facility] Comment on above: Result Comment: NOTE NEW NORMAL RANGE DUE TO REAGENT CHANGE Performed By: #### L 500.60759, L500.25318 ####[facility] [id number] [place], [place] [address]In# [phone] Chloride [Moles/Vol] 103 mmol/L Normal 98-107 [facility] Comment on above: Performed By: #### L 500.27176, L500.26947 ####[facility] [id number] [place], [place] [address]Nh# [phone] CO2 [Moles/Vol] 23.0 mmol/L Normal 21-32 [facility] [place] Comment on above: Performed By: #### L 500.51641, L500.58615 ####[facility] [id number] [place], [place] [address]Kw# [phone] Creatinine [Mass/Vol] 1.46 mg/dL High 0.510-0.950 [facility] Comment on above: Result Comment: Nash ents receiving either N-Acetylcysteine (NAC) or Metamizole prior to venipuncture, may have falsely depressed results. Performed By: #### L 500.60336, L500.99895 ####[facility] [id number] [place], [place] [address]At# [phone] Glucose [Mass/Vol] 135 mg/dL High 70-100 [facility] Comment on above: Result Comment: 70-1 00- Normal Fasting; 100-125 Impaired Fasting; greater than 126 on more than one result- Diabetes. ADA guidelines. Results may be falsely elevated after the administration of Sulfapyridine. Results may be falsely depressed after the administration of Sulfasalazine. Performed By: #### L 500.95912, L500.63718 ####[facility] [id number] [place], [place] [address]Ms# [phone] Potassium [Moles/Vol] 4.9 mmol/L Normal 3.5-5.1 [facility] Comment on above: Result Comment: Slig ht Hemolysis, Result may be affected. Performed By: #### L 500.83004, L500.49117 ####[facility] [id number] [place], [place] [address]Lf# [phone] Sodium [Moles/Vol] 137 mmol/L Normal 136-145 [facility] Comment on above: Performed By: #### L 500.66624, L500.94195 ####[facility] [id number] [place], [place] [address]Do# [phone] Urea nitrogen [Mass/Vol] 25 mg/dL Normal 7-26 [facility] Comment on above: Performed By: #### L 500.89393, L500.96611 ####[facility] [id number] [place], [place] [address]Er# [phone] Urea nitrogen/Creatinine [Mass ratio] 17 mg/mg Normal 15-24 [facility] Comment on above: Performed By: #### L 500.85408, L500.02765 ####[facility] [id number] [place], [place] [address]Un# [phone] CBC W/DIFFon 04-07-2021 BASO ABS 0.00 K/CU MM Normal 0-0.2 [facility] Comment on above: Performed By: #### L 770.44114 #### [facility] [address]# [phone] Basophils/100 WBC (Bld) 0.4 % Normal 0-2 M [facility] Comment on above: Performed By: #### L 770.21187 #### [facility] [address] [place] [address] EOS ABS 0.30 K/CU MM Normal 0-0.5 [facility] Comment on above: Performed By: #### L 770.68219 #### [facility] [address] [place] [address] Eosinophils/100 WBC (Bld) 3.8 % Normal 0-5 [facility] Comment on above: Performed By: #### L 770.91797 #### [facility] [address] [place] [address]# [phone] Erythrocyte distribution width (RBC) [Ratio] 15.0 % High 11-14.5 [facility] Comment on above: Performed By: #### L 770.78621 #### [facility] [address] [place] [address] Hematocrit (Bld) [Volume fraction] 34.8 % Low 35.0-47.0 [facility] Comment on above: Performed By: #### L 770.11545 #### [facility] [address] [place] [address] Hemoglobin (Bld) [Mass/Vol] 10.8 g/dL Low 11.5-15.5 [facility] Comment on above: Performed By: #### L 770.30448 #### [facility] [address] [place] [address] IMMATR GRAN ABS 0.00 K/CU MM Normal Less than 2 [facility] Comment on above: Performed By: #### L 770.29810 #### [facility] [address] [place] [address] IMMATURE GRAN % 0.3 % Normal Less than 2 [facility] [place] Comment on above: Performed By: #### L 770.71193 #### [facility] [address] [place] [address] LYMPH ABS 1.40 K/CU MM Normal 0.9-4.4 [facility] Comment on above: Performed By: #### L 770.04520 #### [facility] [address] [place], [place] [address] Lymphocytes/100 WBC (Bld) 15.2 % Low 20-40 [facility] Comment on above: Performed By: #### L 770.67180 #### [facility] [address] [place] [address] MCHC (RBC) [Mass/Vol] 31.0 g/dL Low 32.0-36.0 [facility] Comment on above: Performed By: #### L 770.94153 #### [facility] [address] [place], [place] [address] MCV (RBC) [Entitic vol] 85.7 fL Normal 80.0-99.0 [facility] Comment on above: Performed By: #### L 770.67288 #### [facility] [address] [place], [place] [address] MONO ABS 0.60 K/CU MM Normal 0.1-1.1 [facility] Comment on above: Performed By: #### L 770.27352 #### [facility] [address] [place] [address] Monocytes/100 WBC (Bld) 6.2 % Normal 2-10 M [facility] Comment on above: Performed By: #### L 770.22567 #### [facility] [address] [place] [address] NEUTROPHIL ABS 6.60 K/CU MM Normal 2.0-8.3 [facility] [place] Comment on above: Performed By: #### L 770.55023 #### [facility] [address] [place] [address] Neutrophils/100 WBC (Bld) 74.1 % Normal 45-75 [facility] Comment on above: Performed By: #### L 770.14393 #### [facility] [address] [place], [place] [address] Nucleated RBC/100 WBC (Bld) [Ratio] 0.0 % Normal Less than 1 [facility] Comment on above: Performed By: #### L 770.07062 #### [facility] [address] [place], [place] [address] Platelet mean volume (Bld) [Entitic vol] 10.7 fL Normal 9.4-12.4 [facility] Comment on above: Performed By: #### L 770.39855 #### [facility] [address] [place] [address] PLT 251 K/CU MM Normal 150-450 [facility] Comment on above: Performed By: #### L 770.62293 #### [facility] [address] [place], [place] [address] RBC 4.06 M/CU MM Normal 3.90-5.30 [facility] Comment on above: Performed By: #### L 770.50388 #### [facility] [address] [place] [address] WBC 8.9 K/CUMM Normal 4.5-11.0 [facility] Comment on above: Performed By: #### L 770.47700 #### [facility] [address] [place] [address] EKGon 04-07-2021 Electrocardiogram Procedure Date and Time: 04/07/21 1252 Test Reason : Blood Pressure : / mmHG Vent. Rate : 076 BPM Atrial Rate : 076 BPM P-R Int : 154 ms QRS Dur : 072 ms QT Int : 386 ms P-R-T Axes : 054 078 029 degrees QTc Int : 434 ms Normal sinus rhythm Normal ECG No previous ECGs available Confirmed by SEAMUS CAMACHO A. ([id number]) on 04/07/2021 8:13:56 PM Referred By: Rajwinder Stout Confirmed By:Roxi CAMACHO M.D.FACC Jyoti DDandT: 04/07/21 1252 TDandT: [facility] PATIENT NAME: JOSELINE ELLIS [address] [place] [address] Dr. Chilel MEDICAL REC #: [id number] [place] [address] ADMIT DATE: DISCHARGE DATE: ATTENDING PHY: Rajwinder Stout MD ELECTROCARDIOGRAM REPORT CLB cc: [facility] PATIENT NAME: JOSELINE ELLIS [address] [place] [address] Dr. Chilel MEDICAL REC #: [id number] [place] [address] ADMIT DATE: DISCHARGE DATE: ATTENDING PHY: Rajwinder Stout MD ELECTROCARDIOGRAM REPORT Normal [facility] GFR ESTon 04-07-2021 IF AMER 43 Normal [facility] Comment on above: Performed By: #### L 500.13217, L500.79385 ####[facility] [id number] [place], [place] [address]Ey# [phone] IF non-AFR AMER 36 Normal [facility] Comment on above: Performed By: #### L 500.92995, L500.56506 ####[facility] [id number] [place], [place] [address]Rj# [phone] HGB A1C GLYCOHBon 04-07-2021 HbA1c (Bld) [Mass fraction] 6.6 % High 4.3-6.0 [facility] Comment on above: Performed By: #### L 770.13300 #### [facility] [address] [place] [address] MRSA PCRon 04-07-2021 MRSA PCR Positive High NEGATIVE [facility] Comment on above: Order Comment: Trung s: M : Nasopharyngeal swab Result Comment: PLEA SE NOTE: TESTING DONE BY PCR TECHNOLOGY. The SA Nasal complete MRSA assay on the [employer] GeneXpert has not been validated for use on patients under 21 years of age. All patients under 21 years of age, run on the GeneXpert will be confirmed by a Blood Dauphin plate, followed by an LATISHA, to confirm MRSA. Performed By: #### L 770.06115 #### [facility] [address] [place] [address] SA PCR Positive High NEGATIVE [facility] Comment on above: Order Comment: Trung s: M : Nasopharyngeal swab Result Comment: PLEA SE NOTE: TESTING DONE BY PCR TECHNOLOGY. Performed By: #### L 770.89191 #### [facility] [address] [place] [address] Clinical Summary: HMSPatient IDon 10-16-2019 [facility] Work Phone: Office Visit: New/Est - 1st visit with physician, Rm: 10-16-2019 NEGATED: Highlighted rowTobacco smoking status NHIS Tobacco smoking status NHIS [facility] Work Phone: Culture, urine Bacteria identified Cx Nom (U) Escherichia coli [facility] Work Phone: Lower GI hemoglobin IA Ql (S tl) Stool Occult Blood (LATISHA) Positive [facility] Work Phone: Vital Signs Date Time Vital Sign Value Performing Clinician Facility 10-09-2024 08:41-0400 Body mass index (BMI) [Ratio] 32.7 kg/m2 Dr. Bernie Reagan MD Work Phone: [facility] 10-09-2024 08:41-0400 Body temperature 96.9 [degF] Dr. Bernie Reagan MD Work Phone: [facility] 10-09-2024 08:41-0400 Diastolic blood pressure 84 mm[Hg] Dr. Bernie Reagan MD Work Phone: [facility] 10-09-2024 08:41-0400 Heart rate 113 /min Dr. Bernie Reagan MD Work Phone: [facility] 10-09-2024 08:41-0400 Respiratory rate 18 /min Dr. Bernie Reagan MD Work Phone: [facility] 10-09-2024 08:41-0400 Systolic blood pressure 132 mm[Hg] Dr. Bernie Reagan MD Work Phone: [facility] 10-02-2024 22:05-0400 Body temperature 97 [degF] Dr. Bernie Reagan MD Work Phone: [facility] 10-02-2024 22:05-0400 Diastolic blood pressure 67 mm[Hg] Dr. Bernie Reagan MD Work Phone: [facility] 10-02-2024 22:05-0400 Heart rate 68 /min Dr. Bernie Reagan MD Work Phone: [facility] 10-02-2024 22:05-0400 Respiratory rate 17 /min Dr. Bernie Reagan MD Work Phone: [facility] 10-02-2024 22:05-0400 SaO2% (BldA) [Mass fraction] 98 % Dr. Bernie Reagan MD Work Phone: [facility] 10-02-2024 22:05-0400 Systolic blood pressure 121 mm[Hg] Dr. Bernie Reagan MD Work Phone: [facility] 10-02-2024 18:17-0400 Body height 160.[address] Bernie Reagan MD Work Phone: [facility] 10-02-2024 18:17-0400 Body mass index (BMI) [Ratio] 31.1 kg/m2 Dr. Bernie Reagan MD Work Phone: [facility] 10-02-2024 18:17-0400 Body weight 79.[address] Bernie Reagan MD Work Phone: [facility] 10-02-2024 08:44-0400 Body mass index (BMI) [Ratio] 32.7 kg/m2 Dr. Bernie Reagan MD Work Phone: [facility] 10-02-2024 08:44-0400 Body temperature 97.6 [degF] Dr. Bernie Reagan MD Work Phone: [facility] 10-02-2024 08:44-0400 Diastolic blood pressure 98 mm[Hg] Dr. Bernie Reagan MD Work Phone: [facility] 10-02-2024 08:44-0400 Heart rate 126 /min Dr. Bernie Reagan MD Work Phone: [facility] 10-02-2024 08:44-0400 Respiratory rate 18 /min Dr. Bernie Reagan MD Work Phone: [facility] 10-02-2024 08:44-0400 Systolic blood pressure 157 mm[Hg] Dr. Bernie Reagan MD Work Phone: [facility] 09-24-2024 14:03-0400 Heart rate 145 /min Dr. Bernie Reagan MD Work Phone: [facility] 09-24-2024 13:17-0400 Body mass index (BMI) [Ratio] 32.1 kg/m2 Dr. Bernie Reagan MD Work Phone: [facility] 09-24-2024 13:17-0400 Body weight 79.[address] Bernie Reagan MD Work Phone: [facility] 09-24-2024 13:17-0400 Diastolic blood pressure 85 mm[Hg] Dr. Bernie Reagan MD Work Phone: [facility] 09-24-2024 13:17-0400 Respiratory rate 18 /min Dr. Bernie Reagan MD Work Phone: [facility] 09-24-2024 13:17-0400 Systolic blood pressure 119 mm[Hg] Dr. Bernie Reagan MD Work Phone: [facility] 09-19-2024 13:44-0400 Heart rate 122 /min Dr. Bernie Reagan MD Work Phone: [facility] 09-19-2024 13:13-0400 Body mass index (BMI) [Ratio] 32.7 kg/m2 Dr. Bernie Reagan MD Work Phone: [facility] 09-19-2024 13:13-0400 Body temperature 97.6 [degF] Dr. Bernie Reagan MD Work Phone: [facility] 09-19-2024 13:13-0400 Body weight 81.[address] Bernie Reagan MD Work Phone: [facility] 09-19-2024 13:13-0400 Diastolic blood pressure 70 mm[Hg] Dr. Bernie Reagan MD Work Phone: [facility] 09-19-2024 13:13-0400 Respiratory rate 16 /min Dr. Bernie Reagan MD Work Phone: [facility] 09-19-2024 13:13-0400 SaO2% (BldA) [Mass fraction] 96 % Dr. Bernie Reagan MD Work Phone: [facility] 09-19-2024 13:13-0400 Systolic blood pressure 128 mm[Hg] Dr. Bernie Reagan MD Work Phone: [facility] 09-13-2024 00:44-0400 Body weight 81.[address] Bernie Reagan MD Work Phone: [facility] 09-11-2024 10:12-0400 Body mass index (BMI) [Ratio] 32.7 kg/m2 Dr. Bernie Reagan MD Work Phone: [facility] 09-11-2024 10:12-0400 Body temperature 96.5 [degF] Dr. Bernie Reagan MD Work Phone: [facility] 09-11-2024 10:12-0400 Diastolic blood pressure 72 mm[Hg] Dr. Bernie Reagan MD Work Phone: [facility] 09-11-2024 10:12-0400 Heart rate 140 /min Dr. Bernie Reagan MD Work Phone: [facility] 09-11-2024 10:12-0400 Respiratory rate 18 /min Dr. Bernie Reagan MD Work Phone: [facility] 09-11-2024 10:12-0400 Systolic blood pressure 103 mm[Hg] Dr. Bernie Reagan MD Work Phone: [facility] 08-28-2024 11:18-0400 Body weight 81.[address] Bernie Reagan MD Work Phone: [facility] 08-20-2024 10:37-0400 Body height 154.[address] Bernie Reagan MD Work Phone: [facility] 08-20-2024 10:37-0400 Body mass index (BMI) [Ratio] 33.8 kg/m2 Dr. Bernie Reagan MD Work Phone: [facility] 08-20-2024 10:37-0400 Body temperature 97.8 [degF] Dr. Bernie Reagan MD Work Phone: [facility] 08-20-2024 10:37-0400 Body weight 81.[address] Bernie Reagan MD Work Phone: [facility] 08-20-2024 10:37-0400 Diastolic blood pressure 78 mm[Hg] Dr. Bernie Reagan MD Work Phone: [facility] 08-20-2024 10:37-0400 Heart rate 65 /min Dr. Bernie Reagan MD Work Phone: [facility] 08-20-2024 10:37-0400 Respiratory rate 20 /min Dr. Bernie Reagan MD Work Phone: [facility] 08-20-2024 10:37-0400 SaO2% (BldA) [Mass fraction] 96 % Dr. Bernie Reagan MD Work Phone: [facility] 08-20-2024 10:37-0400 Systolic blood pressure 136 mm[Hg] Dr. Bernie Reagan MD Work Phone: [facility] 05-21-2024 13:50-0500 Body mass index (BMI) [Ratio] 34 kg/m2 Dr. Bernie Reagan MD Work Phone: [facility] 05-21-2024 13:50-0500 Body temperature 97.2 [degF] Dr. Bernie Reagan MD Work Phone: [facility] 05-21-2024 13:50-0500 Body weight 81.[address] Bernie Reagan MD Work Phone: [facility] 05-21-2024 13:50-0500 Diastolic blood pressure 88 mm[Hg] Dr. Bernie Reagan MD Work Phone: [facility] 05-21-2024 13:50-0500 Heart rate 136 /min Dr. Bernie Reagan MD Work Phone: [facility] 05-21-2024 13:50-0500 Respiratory rate 16 /min Dr. Bernie Reagan MD Work Phone: [facility] 05-21-2024 13:50-0500 SaO2% (BldA) [Mass fraction] 99 % Dr. Bernie Reagan MD Work Phone: [facility] 05-21-2024 13:50-0500 Systolic blood pressure 148 mm[Hg] Dr. Bernie Reagan MD Work Phone: [facility] 09-21-2023 07:16-0400 Body height 129.5 cm VANESSA CALDWELL [employer]INTER [employer] [facility] 09-21-2023 07:16-0400 Body temperature 97.16 [degF] VANESSA CALDWELL PAINTER [employer] [facility] 09-21-2023 07:16-0400 Body weight 88.4 kg VANESSA CALDWELL PAINTER [employer] [facility] 09-21-2023 07:16-0400 Body weight 52.71 kg/m2 VANESSA CALDWELL PAINTER [employer] [facility] 09-21-2023 07:16-0400 Diastolic Blood Pressure Non-Invasive 91 mm[Hg] VANESSA CALDWELL PAINTER [employer] [facility] 09-21-2023 07:16-0400 Heart rate 81 /min VANESSA CALDWELL PAINTER [employer] [facility] 09-21-2023 07:16-0400 Respiratory rate 18 /min VANESSA CALDWELL PAINTER [employer] [facility] 09-21-2023 07:16-0400 Systolic Blood Pressure Non-Invasive 148 mm[Hg] VANESSA JAVI [employer]INTER [employer] [facility] 07-20-2023 06:54-0500 Body height 129.5 cm VANESSA MODIMER PAINTER [employer] [facility] 07-20-2023 06:54-0500 Body temperature 97.34 [degF] VANESSA JAVI [employer]INTER [employer] [facility] 07-20-2023 06:54-0500 Body weight 93.6 kg VANESSA MODIMER [employer]INTER [employer] [facility] 07-20-2023 06:54-0500 Body weight 55.81 kg/m2 VANESSA JAVI PAINTER [employer] [facility] 07-20-2023 06:54-0500 Diastolic Blood Pressure Non-Invasive 88 mm[Hg] VANESSA JAVI [employer]INTER [employer] [facility] 07-20-2023 06:54-0500 Heart rate 80 /min VANESSA JAVI PAINTER [employer] [facility] 07-20-2023 06:54-0500 Respiratory rate 16 /min VANESSA JAVI PAINTER [employer] [facility] 07-20-2023 06:54-0500 Systolic Blood Pressure Non-Invasive 152 mm[Hg] VANESSA JAVI PAINTER [employer] [facility] 07-14-2023 13:27-0500 Heart rate 60 /min ANILA ZAMBRANO MD [address] [place] [address] 07-14-2023 13:27-0500 Respiratory rate 18 /min ANILA ZAMBRANO MD [address] 07-14-2023 12:55-0500 Heart rate 58 /min ANILA ZAMBRANO MD [address] 07-14-2023 12:55-0500 Respiratory rate 18 /min ANILA ZAMBRANO MD [address] [place] [address] 07-14-2023 11:50-0500 Blood Pressure Cuff Size ANILA ZAMBRANO MD [address] [place] [address] 07-14-2023 11:50-0500 Blood Pressure Location ANILA ZAMBRANO MD [address] [place] [address] 07-14-2023 11:50-0500 Blood Pressure Method ANILA ZAMBRANO MD [address] [place] [address] 07-14-2023 11:50-0500 Body temperature 97.88 [degF] ANILA ZAMBRANO MD [address] [place] [address] 07-14-2023 11:50-0500 Diastolic Blood Pressure Non-Invasive 80 mm[Hg] ANILA ZAMBRANO MD [address] [place] [address] 07-14-2023 11:50-0500 Heart rate 55 /min ANILA ZAMBRANO MD [address] [place] [address] 07-14-2023 11:50-0500 Reason For Taking VItal Signs ANILA ZAMBRANO MD [address] 07-14-2023 11:50-0500 Respiratory rate 18 /min ANILA ZAMBRANO MD [address] 07-14-2023 11:50-0500 Systolic Blood Pressure Non-Invasive 178 mm[Hg] ANILA ZAMBRANO MD [address] [place] [address] 07-14-2023 07:35-0500 Heart rate 68 /min ANILA ZAMBRANO MD [address] [place] [address] 07-14-2023 07:35-0500 Reason For Taking VItal Signs ANILA ZAMBRANO MD [address] [place] [address] 07-14-2023 06:46-0500 Blood Pressure Cuff Size ANILA ZAMBRANO MD [address] 07-14-2023 06:46-0500 Blood Pressure Location ANILA ZAMBRANO MD [address] [place] [address] 07-14-2023 06:46-0500 Blood Pressure Method ANILA ZAMBRANO MD [address] [place] [address] 07-14-2023 06:46-0500 Body temperature 98.06 [degF] ANILA ZAMBRANO MD [address] [place] [address] 07-14-2023 06:46-0500 Diastolic Blood Pressure Non-Invasive 78 mm[Hg] ANILA ZAMBRANO MD [address] [place] [address] 07-14-2023 06:46-0500 Reason For Taking VItal Signs ANILA ZAMBRANO MD [address] [place] [address] 07-14-2023 06:46-0500 Systolic Blood Pressure Non-Invasive 182 mm[Hg] ANILA ZAMBRANO MD [address] [place] [address] 07-14-2023 04:07-0500 Body temperature 98.24 [degF] ANILA ZAMBRANO MD [address] [place] [address] 07-14-2023 04:07-0500 Diastolic Blood Pressure Non-Invasive 61 mm[Hg] ANILA ZAMBRANO MD [address] [place] [address] 07-14-2023 04:07-0500 Mean blood pressure 95 mm[Hg] ANILA ZAMBRANO MD [address] [place] [address] 07-14-2023 04:07-0500 Systolic Blood Pressure Non-Invasive 159 mm[Hg] ANILA ZAMBRANO MD [address] [place] [address] 07-14-2023 01:11-0500 Blood Pressure Cuff Size ANILA ZAMBRANO MD [address] [place] [address] 07-14-2023 01:11-0500 Blood Pressure Location ANILA ZAMBRANO MD [address] [place] [address] 07-14-2023 01:11-0500 Blood Pressure Method ANILA ZAMBRANO MD [address] [place] [address] 07-14-2023 01:11-0500 Mean blood pressure 93 mm[Hg] ANILA ZAMBRANO MD [address] [place] [address] 07-13-2023 22:30-0500 Mean blood pressure 85 mm[Hg] ANILA ZAMBRANO MD [address] [place] [address] 07-13-2023 16:39-0500 Heart rate 66 /min ANILA ZAMBRANO MD [address] [place] [address] 07-13-2023 10:33-0500 Body temperature 97.88 [degF] ANILA ZAMBRANO MD [address] [place] [address] 07-13-2023 09:18-0500 Body temperature 96.98 [degF] ANILA ZAMBRANO MD [address] [place] [address] 07-13-2023 06:35-0500 Body temperature 97.88 [degF] ANILA ZAMBRANO MD [address] [place] [address] 07-13-2023 03:22-0500 Body temperature 98.6 [degF] ANILA ZAMBRANO MD [address] [place] [address] 07-10-2023 21:37-0500 Body height 155 cm ANILA ZAMBRANO MD [address] [place] [address] 07-10-2023 21:37-0500 Body weight 89 kg ANILA ZAMBRANO MD [address] [place] [address] 07-10-2023 21:37-0500 Body weight 37.04 kg/m2 ANILA ZAMBRANO MD [address] [place] [address] 07-10-2023 18:53-0500 Diastolic Blood Pressure Non-Invasive 74 mm[Hg] DR CARLOS POLANCO MD [facility] [place] 07-10-2023 18:53-0500 Heart rate 102 /min DR CARLOS POLANCO MD [facility] [place] 07-10-2023 18:53-0500 Mean blood pressure 90 mm[Hg] DR CARLOS POLANCO MD [facility] [place] 07-10-2023 18:53-0500 Reason For Taking VItal Signs DR CARLOS POLANCO MD [facility] [place] 07-10-2023 18:53-0500 Respiratory rate 22 /min DR CARLOS POLANCO MD [facility] [place] 07-10-2023 18:53-0500 Systolic Blood Pressure Non-Invasive 134 mm[Hg] DR CARLOS POLANCO MD [facility] [place] 07-10-2023 18:25-0500 Heart rate 149 /min DR CARLOS POLANCO MD [facility] [place] 07-10-2023 17:21-0500 Heart rate 111 /min DR CARLOS POLANCO MD [facility] [place] 07-10-2023 17:21-0500 Reason For Taking VItal Signs DR CARLOS POLANCO MD [facility] [place] 07-10-2023 17:21-0500 Respiratory rate 28 /min DR CARLOS POLANCO MD [facility] [place] 07-10-2023 17:19-0500 Heart rate 129 /min DR CARLOS POLANCO MD [facility] [place] 07-10-2023 16:40-0500 Diastolic Blood Pressure Non-Invasive 69 mm[Hg] DR CARLOS POLANCO MD [facility] [place] 07-10-2023 16:40-0500 Heart rate 105 /min DR CARLOS POLANCO MD [facility] [place] 07-10-2023 16:40-0500 Reason For Taking VItal Signs DR CARLOS POLANCO MD [facility] [place] 07-10-2023 16:40-0500 Respiratory rate 28 /min DR CARLOS POLANCO MD [facility] [place] 07-10-2023 16:40-0500 Systolic Blood Pressure Non-Invasive 175 mm[Hg] DR CARLOS POLANCO MD [facility] [place] 07-10-2023 16:20-0500 Diastolic Blood Pressure Non-Invasive 87 mm[Hg] DR CARLOS POLANCO MD [facility] [place] 07-10-2023 16:20-0500 Systolic Blood Pressure Non-Invasive 156 mm[Hg] DR CARLOS POLANCO MD [facility] [place] 07-10-2023 14:41-0500 Heart rate 141 /min DR CARLOS POLANCO MD [facility] [place] 07-10-2023 14:00-0500 Body temperature 98.6 [degF] DR CARLOS POLANCO MD [facility] [place] 07-10-2023 14:00-0500 Heart rate 140 /min DR CARLOS POLANCO MD [facility] [place] 07-10-2023 14:00-0500 Mean blood pressure 97 mm[Hg] DR CARLOS POLANCO MD [facility] [place] 07-10-2023 13:48-0500 Heart rate 139 /min DR CARLOS POLACNO MD [facility] [place] 07-10-2023 12:37-0500 Heart rate 136 /min DR CARLOS POLANCO MD [facility] [place] 07-10-2023 10:15-0500 Signs/Symptoms Transfusion Reaction DR CARLOS POLANCO MD [facility] [place] 07-10-2023 09:19-0500 Body temperature 99.5 [degF] DR CARLOS POLANCO MD [facility] [place] 06-02-2023 12:32-0500 Body height 154.[address] Bernie Reagan Work Phone: [facility] 06-02-2023 12:32-0500 Body mass index (BMI) [Ratio] 37.5 kg/m2 Dr. Bernie Reagan Work Phone: [facility] 06-02-2023 12:32-0500 Body temperature 97.1 [degF] Dr. Bernie Reagan Work Phone: [facility] 06-02-2023 12:32-0500 Body weight 90.[address] Bernie Reagan Work Phone: [facility] 06-02-2023 12:32-0500 Diastolic blood pressure 78 mm[Hg] Dr. Bernie Reagan Work Phone: [facility] 06-02-2023 12:32-0500 Heart rate 67 /min Dr. Bernie Reagan Work Phone: [facility] 06-02-2023 12:32-0500 Respiratory rate 16 /min Dr. Bernie Reagan Work Phone: [facility] 06-02-2023 12:32-0500 SaO2% (BldA) [Mass fraction] 93 % Dr. Bernie Reagan Work Phone: [facility] 06-02-2023 12:32-0500 Systolic blood pressure 118 mm[Hg] Dr. Bernie Reagan Work Phone: [facility] 04-07-2023 16:04-0500 Diastolic blood pressure 75 mm[Hg] [facility] 04-07-2023 16:04-0500 Heart rate 69 /min [facility] 04-07-2023 16:04-0500 Respiratory rate 30 /min [facility] 04-07-2023 16:04-0500 SaO2% (BldA) [Mass fraction] 94 % [facility] 04-07-2023 16:04-0500 Systolic blood pressure 136 mm[Hg] [facility] 04-07-2023 14:37-0500 Body height 154.99 cm [facility] 04-07-2023 14:37-0500 Body mass index (BMI) [Ratio] 38 kg/m2 [facility] 04-07-2023 14:37-0500 Body temperature 98.7 [degF] [facility] 04-07-2023 14:37-0500 Body weight 91.3 kg [facility] 12-28-2022 16:34-0400 Heart rate 72 /min JULIUS ZHANGLY [address] [place] [address] 12-28-2022 16:12-0400 Body temperature 98.06 [degF] JULIUS ZHANGLY [address] [place] [address] 12-28-2022 16:12-0400 Diastolic Blood Pressure Non-Invasive 60 1 JULIUS CECILIO [employer] [address] 12-28-2022 16:12-0400 Heart rate 63 /min JULIUS CECILIO DO [address] 12-28-2022 16:12-0400 Respiratory rate 16 /min JULIUS CECILIO [address] [place] [address] 12-28-2022 16:12-0400 Systolic Blood Pressure Non-Invasive 128 1 JULIUS CECILIO DO [address] 12-28-2022 08:55-0400 Heart rate 76 /min JULIUS ZHANGLY [address] [place] [address] 12-28-2022 08:39-0400 Diastolic Blood Pressure Non-Invasive 61 1 JULIUS HERNANDES [address] [place] [address] 12-28-2022 08:39-0400 Systolic Blood Pressure Non-Invasive 122 1 JULIUS HERNANDES DO [facility] 12-28-2022 06:59-0400 Body temperature 98.42 [degF] JULIUS HERNANDES DO [facility] 12-28-2022 06:59-0400 Diastolic Blood Pressure Non-Invasive 50 1 JULIUS HERNANDES DO [employer] [facility] 12-28-2022 06:59-0400 Heart rate 56 /min JULIUS CECILIO DEL [employer] [address] [place] [address] 12-28-2022 06:59-0400 Reason For Taking VItal Signs JULIUS HERNANDES DO [facility] [address] [place] [address] 12-28-2022 06:59-0400 Respiratory rate 18 /min JULIUS HERNANDES DO [facility] [address] [place] [address] 12-28-2022 06:59-0400 Systolic Blood Pressure Non-Invasive 111 1 JULIUS HERNANDES DO [facility] [address] [place] [address] 12-27-2022 23:07-0400 Body temperature 98.24 [degF] JULIUS HERNANDES DO [employer] [address] [place] [address] 12-27-2022 23:07-0400 Heart rate 99 /min JULIUS HERNANDES DO [facility] 12-27-2022 23:07-0400 Reason For Taking VItal Signs JULIUS HERNANDES DO [employer] 12-27-2022 23:07-0400 Respiratory rate 18 /min JULIUS HERNANDES DO [employer] [address] [place] [address] 12-27-2022 15:46-0400 Heart rate 62 /min JULIUS HERNANDES DO [employer] [address] [place] [address] 12-27-2022 15:46-0400 Reason For Taking VItal Signs JULIUS HERNANDES DO [employer] 12-27-2022 07:14-0400 Body temperature 97.7 [degF] JULIUS CECILIO DEL REAL [employer] [facility] 12-26-2022 15:17-0400 Heart rate 60 /min JULIUS CECILIO DEL REAL [facility] 12-25-2022 23:17-0400 Body temperature 96.8 [degF] JULIUS CECILIO DEL [employer] [facility] 12-25-2022 15:48-0400 Diastolic blood pressure 62 mm[Hg] JULIUS CECILIO DEL [employer] [facility] 12-25-2022 15:48-0400 Signs/Symptoms Transfusion Reaction JULIUS CECILIO DEL [employer] [facility] 12-25-2022 15:48-0400 Systolic blood pressure 104 mm[Hg] JULIUS CECILIO DEL [employer] [address] 12-25-2022 15:46-0400 Signs/Symptoms Transfusion Reaction No JULIUS CECILIO DEL [employer] [facility] 12-25-2022 15:39-0400 Signs/Symptoms Transfusion Reaction JULIUS CECILIO DEL [employer] 12-25-2022 10:25-0400 SaO2% (BldA) [Mass fraction] 94.0 % JULIUS CECILIO DEL REAL [facility] 12-25-2022 06:45-0400 Blood Pressure Location JULIUS CECILIO [employer] 12-25-2022 06:45-0400 Blood Pressure Method JULIUS HERNANDES DO [facility] 12-25-2022 06:37-0400 Heart rate 81 /min JULIUS CECILIO DEL [employer] 12-25-2022 01:35-0400 Blood Pressure Cuff Size JULIUS CECILIO [facility] 12-25-2022 01:35-0400 Blood Pressure Location JULIUS CECILIO DO [facility] 12-25-2022 01:35-0400 Blood Pressure Method JULIUS HERNANDES DO [facility] 12-25-2022 01:35-0400 Body temperature 97.52 [degF] JULIUS CECILIO DEL [employer] [address] [place] [address] 12-24-2022 19:37-0400 Blood Pressure Cuff Size JULIUS HERNANDES DO [address] [place] [address] 12-24-2022 19:37-0400 Blood Pressure Location JULIUS HERNANDES DO [address] [place] [address] 12-24-2022 19:37-0400 Blood Pressure Method JULIUS HERNANDES DO [address] [place] [address] 12-24-2022 19:21-0400 Blood Pressure Cuff Size JULIUS HERNANDES DO [address] [place] [address] 12-23-2022 13:13-0400 Heart rate 82 /min JULIUS CECILIO [employer] [address] [place] [address] 12-23-2022 13:04-0400 Body temperature 98.42 [degF] JULIUS CECILIO DEL [employer] [address] [place] [address] 12-23-2022 13:04-0400 Mean blood pressure 76 mm[Hg] JULIUS CECILIO DEL [employer] [address] [place] [address] 12-23-2022 12:30-0400 Mean blood pressure 68 mm[Hg] JULIUS CECILIO [employer] [address] [place] [address] 12-23-2022 12:15-0400 Mean blood pressure 80 mm[Hg] JULIUS CECILIO [employer] [address] [place] [address] 12-23-2022 11:35-0400 Respiratory Rate - Anes 0 br/min JULIUS CECILIO DEL [employer] [address] [place] [address] 12-23-2022 11:31-0400 Body temperature 96.98 [degF] JULIUS CECILIO DEL [employer] [address] [place] [address] 12-23-2022 11:30-0400 Respiratory Rate - Anes 0 br/min JULIUS CECILIO DEL [employer] [address] [place] [address] 12-23-2022 11:25-0400 Respiratory Rate - Anes 3 br/min JULIUS HERNANEDS DO [address] [place] [address] 12-23-2022 11:10-0400 Body temperature 97.11 [degF] JULIUS HERNANDES DO [address] [place] [address] 12-23-2022 11:05-0400 Body temperature 97.02 [degF] JULIUS HERNANDES DO [address] [place] [address] 12-23-2022 11:00-0400 Body temperature 96.93 [degF] JULIUS HERNANDES DO [address] [place] [address] 12-23-2022 05:08-0400 Body height 155 cm JULIUS HERNANDES DO [address] [place] [address] 12-23-2022 05:08-0400 Body weight 89.6 kg JULIUS HERNANDES DO [address] [place] [address] 12-23-2022 05:08-0400 Body weight 37.29 kg/m2 JULIUS HERNANDES DO [address] [place] [address] 12-22-2022 20:30-0400 Body weight 89.6 kg JULIUS HERNANDES DO [address] [place] [address] 12-22-2022 19:29-0400 Diastolic Blood Pressure Non-Invasive [address] GERARD FITCH MD [facility] 12-22-2022 19:29-0400 Heart rate 76 /min DR GERARD FITCH MD [facility] 12-22-2022 19:29-0400 Respiratory rate 16 /min DR GERARD FITCH MD [facility] 12-22-2022 19:29-0400 Systolic Blood Pressure Non-Invasive [address] GERARD FITCH MD [facility] 12-22-2022 17:31-0400 Body temperature 98.06 [degF] DR GERARD FITCH MD [facility] 12-22-2022 17:31-0400 Diastolic Blood Pressure Non-Invasive [address] GERARD FITCH MD [facility] 12-22-2022 17:31-0400 Heart rate 66 /min DR GERARD FITCH MD [facility] 12-22-2022 17:31-0400 Respiratory rate 18 /min DR GERARD FITCH MD [facility] 12-22-2022 17:31-0400 Systolic Blood Pressure Non-Invasive [address] GERARD FITCH MD [facility] 12-21-2022 09:38-0400 Body temperature 97.5 [degF] Dr. Bernie Reagan Work Phone: [facility] 12-21-2022 09:38-0400 Diastolic blood pressure 67 mm[Hg] Dr. Bernie Reagan Work Phone: [facility] 12-21-2022 09:38-0400 Heart rate 59 /min Dr. Bernie Reagan Work Phone: [facility] 12-21-2022 09:38-0400 Respiratory rate 18 /min Dr. Bernie Reagan Work Phone: [facility] 12-21-2022 09:38-0400 Systolic blood pressure 157 mm[Hg] Dr. Bernie Reagan Work Phone: [facility] 11-23-2022 09:44-0400 Body mass index (BMI) [Ratio] 34.9 kg/m2 Dr. Bernie Reagan Work Phone: [facility] 11-23-2022 09:44-0400 Body temperature 97.3 [degF] Dr. Bernie Reagan Work Phone: [facility] 11-23-2022 09:44-0400 Diastolic blood pressure 59 mm[Hg] Dr. Bernie Reagan Work Phone: [facility] 11-23-2022 09:44-0400 Heart rate 59 /min Dr. Bernie Reagan Work Phone: [facility] 11-23-2022 09:44-0400 Respiratory rate 20 /min Dr. Bernie Reagan Work Phone: [facility] 11-23-2022 09:44-0400 Systolic blood pressure 148 mm[Hg] Dr. Bernie Reagan Work Phone: [facility] 11-13-2022 01:20-0400 Body weight 83.[address] Bernie Reagan Work Phone: [facility] 11-12-2022 13:47-0400 Body height 154.[address] Bernie Reagan Work Phone: [facility] 11-12-2022 13:47-0400 Body mass index (BMI) [Ratio] 34.2 kg/m2 Dr. Bernie Reagan Work Phone: [facility] 11-12-2022 13:47-0400 Body weight 82.[address] Bernie Reagan Work Phone: [facility] 11-12-2022 13:47-0400 Diastolic blood pressure 76 mm[Hg] Dr. Bernie Reagan Work Phone: [facility] 11-12-2022 13:47-0400 Heart rate 69 /min Dr. Bernie Reagan Work Phone: [facility] 11-12-2022 13:47-0400 Respiratory rate 20 /min Dr. Bernie Raegan Work Phone: [facility] 11-12-2022 13:47-0400 SaO2% (BldA) [Mass fraction] 94 % Dr. Bernie Reagan Work Phone: [facility] 11-12-2022 13:47-0400 Systolic blood pressure 118 mm[Hg] Dr. Bernie Reagan Work Phone: [facility] 11-09-2022 09:24-0400 Body mass index (BMI) [Ratio] 34.9 kg/m2 Dr. Bernie Reagan Work Phone: [facility] 11-09-2022 09:24-0400 Diastolic blood pressure 71 mm[Hg] Dr. Bernie Reagan Work Phone: [facility] 11-09-2022 09:24-0400 Heart rate 81 /min Dr. Bernie Reagan Work Phone: [facility] 11-09-2022 09:24-0400 Respiratory rate 16 /min Dr. Bernie Reagan Work Phone: [facility] 11-09-2022 09:24-0400 Systolic blood pressure 167 mm[Hg] Dr. Bernie Reagan Work Phone: [facility] 11-02-2022 11:40-0400 Body mass index (BMI) [Ratio] 34.9 kg/m2 Dr. Bernie Reagan Work Phone: [facility] 11-02-2022 11:40-0400 Body temperature 97.4 [degF] Dr. Bernie Reagan Work Phone: [facility] 11-02-2022 11:40-0400 Diastolic blood pressure 67 mm[Hg] Dr. Bernie Reagan Work Phone: [facility] 11-02-2022 11:40-0400 Heart rate 69 /min Dr. Bernie Reagan Work Phone: [facility] 11-02-2022 11:40-0400 Systolic blood pressure 142 mm[Hg] Dr. Bernie Reagan Work Phone: [facility] 11-01-2022 10:02-0400 Body height 154.[address] Bernie Reagan Work Phone: [facility] 11-01-2022 10:02-0400 Body mass index (BMI) [Ratio] 36.1 kg/m2 Dr. Bernie Reagan Work Phone: [facility] 11-01-2022 10:02-0400 Body temperature 97.2 [degF] Dr. Bernie Reagan Work Phone: [facility] 11-01-2022 10:02-0400 Body weight 86.[address] Bernie Reagan Work Phone: [facility] 11-01-2022 10:02-0400 Diastolic blood pressure 70 mm[Hg] Dr. Bernie Reagan Work Phone: [facility] 11-01-2022 10:02-0400 Heart rate 64 /min Dr. Bernie Reagan Work Phone: [facility] 11-01-2022 10:02-0400 Respiratory rate 16 /min Dr. Bernie Reagan Work Phone: [facility] 11-01-2022 10:02-0400 SaO2% (BldA) [Mass fraction] 99 % Dr. Bernie Reagan Work Phone: [facility] 11-01-2022 10:02-0400 Systolic blood pressure 112 mm[Hg] Dr. Bernie Reagan Work Phone: [facility] 10-26-2022 09:11-0400 Body weight 83.[address] Bernie Reagan Work Phone: [facility] 10-26-2022 09:11-0400 Respiratory rate 16 /min Dr. Bernie Reagan Work Phone: [facility] 09-29-2022 10:07-0400 Body height 154.[address] Bernie Reagan Work Phone: [facility] 09-29-2022 10:07-0400 Body mass index (BMI) [Ratio] 36.2 kg/m2 Dr. Bernie Reagan Work Phone: [facility] 09-29-2022 10:07-0400 Body temperature 95 [degF] Dr. Bernie Reagan Work Phone: [facility] 09-29-2022 10:07-0400 Body weight 87.[address] Bernie Reagan Work Phone: [facility] 09-29-2022 10:07-0400 Diastolic blood pressure 76 mm[Hg] Dr. Bernie Reagan Work Phone: [facility] 09-29-2022 10:07-0400 Heart rate 67 /min Dr. Bernie Reagan Work Phone: [facility] 09-29-2022 10:07-0400 Respiratory rate 18 /min Dr. Bernie Reagan Work Phone: [facility] 09-29-2022 10:07-0400 SaO2% (BldA) [Mass fraction] 99 % Dr. Bernie Reagan Work Phone: [facility] 09-29-2022 10:07-0400 Systolic blood pressure 138 mm[Hg] Dr. Bernie Reagan Work Phone: [facility] 09-20-2022 10:45-0400 Body mass index (BMI) [Ratio] 34.9 kg/m2 Dr. Bernie Reagan Work Phone: [facility] 09-20-2022 10:45-0400 Body temperature 95.7 [degF] Dr. Bernie Reagan Work Phone: [facility] 09-20-2022 10:45-0400 Diastolic blood pressure 61 mm[Hg] Dr. Bernie Reagan Work Phone: [facility] 09-20-2022 10:45-0400 Heart rate 52 /min Dr. Bernie Reagan Work Phone: [facility] 09-20-2022 10:45-0400 Respiratory rate 16 /min Dr. Bernie Reagan Work Phone: [facility] 09-20-2022 10:45-0400 Systolic blood pressure 151 mm[Hg] Dr. Bernie Reagan Work Phone: [facility] 09-15-2022 08:41-0400 Heart rate 73 /min Dr. Bernie Reagan Work Phone: [facility] 09-15-2022 08:40-0400 Body temperature 97.9 [degF] Dr. Bernie Reagan Work Phone: [facility] 09-15-2022 08:40-0400 Diastolic blood pressure 77 mm[Hg] [facility]. Bernie Reagan Work Phone[facility] [facility] 09-15-2022 08:40-0400 Respiratory rate 18 /min Dr. Bernie Reagan Work Phone: [facility] 09-15-2022 08:40-0400 SaO2% (BldA) [Mass fraction] 93 % Dr. Bernie Reagan Work Phone: [facility] 09-15-2022 08:40-0400 Systolic blood pressure 142 mm[Hg] Dr. Bernie Reagan Work Phone: [facility] 09-13-2022 14:48-0400 Body height 154.[address] Bernie Reagan Work Phone: [facility] 09-13-2022 14:48-0400 Body weight 86.[address] Bernie Reagan Work Phone: [facility] 09-13-2022 00:42-0400 Body weight 83.[address] Bernie Reagan Work Phone: [facility] 09-12-2022 21:24-0400 Diastolic blood pressure 51 mm[Hg] Dr. Bernie Reagan Work Phone: [facility] 09-12-2022 21:24-0400 Heart rate 121 /min Dr. Bernie Reagan Work Phone: [facility] 09-12-2022 21:24-0400 Systolic blood pressure 121 mm[Hg] Dr. Bernie Reagan Work Phone: [facility] 09-12-2022 20:18-0400 Body temperature 97.8 [degF] Dr. Bernie Reagan Work Phone: [facility] 09-12-2022 20:18-0400 Respiratory rate 22 /min Dr. Bernie Reagan Work Phone: [facility] 09-12-2022 20:18-0400 SaO2% (BldA) [Mass fraction] 96 % Dr. Bernie Reagan Work Phone: [facility] 09-12-2022 10:00-0400 Inhaled oxygen flow rate 3 L/min Dr. Bernie Reagan Work Phone: [facility] 09-11-2022 20:25-0400 Inhaled oxygen flow rate 3 L/min Dr. Bernie Reagan Work Phone: [facility] 09-11-2022 20:24-0400 Diastolic blood pressure 82 mm[Hg] Dr. Bernie Reagan Work Phone: [facility] 09-11-2022 20:24-0400 Heart rate 130 /min Dr. Bernie Reagan Work Phone: [facility] 09-11-2022 20:24-0400 Systolic blood pressure 112 mm[Hg] Dr. Bernie Reagan Work Phone: [facility] 09-11-2022 20:21-0400 Body temperature 97.4 [degF] Dr. Bernie Reagan Work Phone: [facility] 09-11-2022 20:21-0400 Respiratory rate 20 /min Dr. Bernie Reagan Work Phone: [facility] 09-11-2022 20:21-0400 SaO2% (BldA) [Mass fraction] 97 % Dr. Bernie Reagan Work Phone: [facility] 09-10-2022 14:20-0400 Body height 154.[address] Bernie Reagan Work Phone: [facility] 09-10-2022 14:20-0400 Body weight 86.[address] Bernie Reagan Work Phone: [facility] 09-09-2022 18:18-0400 Body mass index (BMI) [Ratio] 36.1 kg/m2 Dr. Bernie Reagan Work Phone: [facility] 09-09-2022 17:21-0400 Body temperature 97.5 [degF] Dr. Bernie Reagan Work Phone: [facility] 09-09-2022 17:21-0400 Diastolic blood pressure 66 mm[Hg] Dr. Bernie Reagan Work Phone: [facility] 09-09-2022 17:21-0400 Heart rate 71 /min Dr. Bernie Reagan Work Phone: [facility] 09-09-2022 17:21-0400 Respiratory rate 25 /min Dr. Bernie Reagan Work Phone: [facility] 09-09-2022 17:21-0400 SaO2% (BldA) [Mass fraction] 92 % Dr. Bernie Reagan Work Phone: [facility] 09-09-2022 17:21-0400 Systolic blood pressure 124 mm[Hg] Dr. Bernie Reagan Work Phone: [facility] 09-09-2022 15:00-0400 Inhaled oxygen flow rate 6 L/min Dr. Bernie Reagan Work Phone: [facility] 09-09-2022 14:31-0400 Body height 154.[address] Bernie Reagan Work Phone: [facility] 09-09-2022 14:31-0400 Body mass index (BMI) [Ratio] 34.4 kg/m2 Dr. Bernie Reagan Work Phone: [facility] 09-09-2022 14:31-0400 Body weight 82.[address] Bernie Reagan Work Phone: [facility] 09-06-2022 17:12-0400 Body temperature 98.1 [degF] Dr. Bernie Reagan Work Phone: [facility] 09-06-2022 17:12-0400 Diastolic blood pressure 73 mm[Hg] Dr. Bernie Reagan Work Phone: [facility] 09-06-2022 17:12-0400 Heart rate 75 /min Dr. Bernie Reagan Work Phone: [facility] 09-06-2022 17:12-0400 Respiratory rate 16 /min Dr. Bernie Reagan Work Phone: [facility] 09-06-2022 17:12-0400 SaO2% (BldA) [Mass fraction] 99 % Dr. Bernie Reagan Work Phone: [facility] 09-06-2022 17:12-0400 Systolic blood pressure 107 mm[Hg] Dr. Bernie Reagan Work Phone: [facility] 09-06-2022 11:48-0400 Body height 154.[address] Bernie Reagan Work Phone: [facility] 09-06-2022 11:48-0400 Body mass index (BMI) [Ratio] 34.4 kg/m2 Dr. Bernie Reagan Work Phone: [facility] 09-06-2022 11:48-0400 Body weight 82.[address] Bernie Reagan Work Phone: [facility] 09-06-2022 10:50-0400 Body mass index (BMI) [Ratio] 34.9 kg/m2 Dr. Bernie Reagan Work Phone: [facility] 09-06-2022 10:50-0400 Body temperature 96.9 [degF] Dr. Bernie Reagan Work Phone: [facility] 09-06-2022 10:50-0400 Diastolic blood pressure 80 mm[Hg] Dr. Bernie Reagan Work Phone: [facility] 09-06-2022 10:50-0400 Heart rate 120 /min Dr. Bernie Reagan Work Phone: [facility] 09-06-2022 10:50-0400 Respiratory rate 16 /min Dr. Bernie Reagan Work Phone: [facility] 09-06-2022 10:50-0400 Systolic blood pressure 128 mm[Hg] Dr. Bernie Reagan Work Phone: [facility] 09-01-2022 11:04-0400 Body mass index (BMI) [Ratio] 34.4 kg/m2 Dr. Bernie Reagan Work Phone: [facility] 09-01-2022 11:04-0400 Body temperature 96.4 [degF] Dr. Bernie Reagan Work Phone: [facility] 09-01-2022 11:04-0400 Body weight 82.[address] Bernie Reagan Work Phone: [facility] 09-01-2022 11:04-0400 Diastolic blood pressure 66 mm[Hg] Dr. Bernie Reagan Work Phone: [facility] 09-01-2022 11:04-0400 Heart rate 140 /min Dr. Bernie Reagan Work Phone: [facility] 09-01-2022 11:04-0400 Respiratory rate 18 /min Dr. Bernie Reagan Work Phone: [facility] 09-01-2022 11:04-0400 SaO2% (BldA) [Mass fraction] 97 % Dr. Bernie Reagan Work Phone: [facility] 09-01-2022 11:04-0400 Systolic blood pressure 96 mm[Hg] Dr. Bernie Reagan Work Phone: [facility] 08-16-2022 14:45-0400 Body temperature 97.6 [degF] Dr. Bernie Reagan Work Phone: [facility] 08-16-2022 14:45-0400 Diastolic blood pressure 52 mm[Hg] Dr. Bernie Reagan Work Phone: [facility] 08-16-2022 14:45-0400 Heart rate 64 /min Dr. Bernie Reagan Work Phone: [facility] 08-16-2022 14:45-0400 Respiratory rate 18 /min Dr. Bernie Reagan Work Phone: [facility] 08-16-2022 14:45-0400 SaO2% (BldA) [Mass fraction] 97 % Dr. Bernie Reagan Work Phone: [facility] 08-16-2022 14:45-0400 Systolic blood pressure 108 mm[Hg] Dr. Bernie Reagan Work Phone: [facility] 08-16-2022 08:49-0400 Inhaled oxygen flow rate 2 L/min Dr. Bernie Reagan Work Phone: [facility] 08-14-2022 02:10-0400 Body weight 83.[address] Bernie Reagan Work Phone: [facility] 08-14-2022 00:05-0400 Body temperature 98.3 [degF] Dr. Bernie Reagan Work Phone: [facility] 08-14-2022 00:05-0400 Diastolic blood pressure 69 mm[Hg] Dr. Bernie Reagan Work Phone: [facility] 08-14-2022 00:05-0400 Heart rate 80 /min Dr. Bernie Reagan Work Phone: [facility] 08-14-2022 00:05-0400 Inhaled oxygen flow rate 2 L/min Dr. Bernie Reagan Work Phone: [facility] 08-14-2022 00:05-0400 Respiratory rate 18 /min Dr. Bernie Reagan Work Phone: [facility] 08-14-2022 00:05-0400 SaO2% (BldA) [Mass fraction] 94 % Dr. Bernie Reagan Work Phone: [facility] 08-14-2022 00:05-0400 Systolic blood pressure 147 mm[Hg] Dr. Bernie Reagan Work Phone: [facility] 08-13-2022 17:37-0400 Body temperature 98 [degF] Dr. Bernie Reagan Work Phone: [facility] 08-13-2022 17:37-0400 Diastolic blood pressure 73 mm[Hg] Dr. Bernie Reagan Work Phone: [facility] 08-13-2022 17:37-0400 Heart rate 75 /min Dr. Bernie Reagan Work Phone: [facility] 08-13-2022 17:37-0400 Inhaled oxygen flow rate 2 L/min Dr. Bernie Reagan Work Phone: [facility] 08-13-2022 17:37-0400 Respiratory rate 20 /min Dr. Bernie Reagan Work Phone: [facility] 08-13-2022 17:37-0400 SaO2% (BldA) [Mass fraction] 95 % Dr. Bernie Reagan Work Phone: [facility] 08-13-2022 17:37-0400 Systolic blood pressure 152 mm[Hg] Dr. Bernie Reagan Work Phone: [facility] 08-12-2022 15:31-0400 Body height 154.[address] Bernie Reagan Work Phone: [facility] 08-12-2022 15:31-0400 Body weight 85.[address] Bernie Reagan Work Phone: [facility] 08-12-2022 10:00-0400 Diastolic blood pressure 72 mm[Hg] Dr. Bernie Reagan Work Phone: [facility] 08-12-2022 10:00-0400 Heart rate 85 /min Dr. Bernie Reagan Work Phone: [facility] 08-12-2022 10:00-0400 Inhaled oxygen flow rate 2 L/min Dr. Bernie Reagan Work Phone: [facility] 08-12-2022 10:00-0400 Respiratory rate 24 /min Dr. Bernie Reagan Work Phone: [facility] 03-30-2023 10:00-0400 SaO2% (BldA) [Mass fraction] 92 % Dr. Bernie Reagan Work Phone: [facility] 08-12-2022 10:00-0400 Systolic blood pressure 135 mm[Hg] Dr. Bernie Reagan Work Phone: [facility] 08-12-2022 08:00-0400 Body temperature 98.7 [degF] Dr. Bernie Reagan Work Phone: [facility] 08-12-2022 00:31-0400 Body height 154.[address] Bernie Reagan Work Phone: [facility] 08-12-2022 00:31-0400 Body mass index (BMI) [Ratio] 35.6 kg/m2 Dr. Bernie Reagan Work Phone: [facility] 08-12-2022 00:31-0400 Body weight 85.[address] Bernie Reagan Work Phone: [facility] 08-12-2022 00:11-0400 Diastolic blood pressure 91 mm[Hg] Dr. Bernie Reagan Work Phone: [facility] 08-12-2022 00:11-0400 Heart rate 139 /min Dr. Bernie Reagan Work Phone: [facility] 08-12-2022 00:11-0400 Respiratory rate 21 /min Dr. Bernie Reagan Work Phone: [facility] 08-12-2022 00:11-0400 SaO2% (BldA) [Mass fraction] 92 % Dr. Bernie Reagan Work Phone: [facility] 08-12-2022 00:11-0400 Systolic blood pressure 120 mm[Hg] Dr. Bernie Reagan Work Phone: [facility] 08-11-2022 23:48-0400 Body temperature 98.2 [degF] Dr. Bernie Reagan Work Phone: [facility] 08-11-2022 15:58-0400 Body mass index (BMI) [Ratio] 35.6 kg/m2 Dr. Bernie Reagan Work Phone: [facility] 08-11-2022 15:58-0400 Body weight 85.[address] Bernie Reagan Work Phone: [facility] 08-11-2022 15:37-0400 Body height 154.[address] Bernie Reagan Work Phone: [facility] 08-02-2022 14:34-0400 Body mass index (BMI) [Ratio] 34.9 kg/m2 Dr. Bernie Reagan Work Phone: [facility] 08-02-2022 14:34-0400 Body temperature 98.9 [degF] Dr. Bernie Reagan Work Phone: [facility] 08-02-2022 14:34-0400 Diastolic blood pressure 89 mm[Hg] Dr. Bernie Reagan Work Phone: [facility] 08-02-2022 14:34-0400 Heart rate 64 /min Dr. Bernie Reagan Work Phone: [facility] 08-02-2022 14:34-0400 Respiratory rate 16 /min Dr. Bernie Reagan Work Phone: [facility] 08-02-2022 14:34-0400 Systolic blood pressure 183 mm[Hg] Dr. Bernie Reagan Work Phone: [facility] 07-26-2022 15:07-0400 Body mass index (BMI) [Ratio] 34.9 kg/m2 Dr. Bernie Reagan Work Phone: [facility] 07-26-2022 15:07-0400 Body temperature 96.9 [degF] Dr. Bernie Reagan Work Phone: [facility] 07-26-2022 15:07-0400 Diastolic blood pressure 73 mm[Hg] Dr. Bernie Reagan Work Phone: [facility] 07-26-2022 15:07-0400 Heart rate 77 /min Dr. Bernie Reagan Work Phone: [facility] 07-26-2022 15:07-0400 Respiratory rate 20 /min Dr. Bernie Reagan Work Phone: [facility] 07-26-2022 15:07-0400 Systolic blood pressure 168 mm[Hg] Dr. Bernie Reagan Work Phone: [facility] 07-22-2022 10:17-0500 Body height 154.[address] Bernie Reagan Work Phone: [facility] 07-22-2022 10:17-0500 Body mass index (BMI) [Ratio] 37.4 kg/m2 Dr. Bernie Reagan Work Phone: [facility] 07-22-2022 10:17-0500 Body temperature 97.6 [degF] Dr. Bernie Reagan Work Phone: [facility] 07-22-2022 10:17-0500 Body weight 89.[address] Bernie Reagan Work Phone: [facility] 07-22-2022 10:17-0500 Diastolic blood pressure 82 mm[Hg] Dr. Bernie Reagan Work Phone: [facility] 07-22-2022 10:17-0500 Heart rate 68 /min Dr. Bernie Reagan Work Phone: [facility] 07-22-2022 10:17-0500 Respiratory rate 14 /min Dr. Bernie Reagan Work Phone: [facility] 07-22-2022 10:17-0500 SaO2% (BldA) [Mass fraction] 99 % Dr. Bernie Reagan Work Phone: [facility] 07-22-2022 10:17-0500 Systolic blood pressure 116 mm[Hg] Dr. Bernie Reagan Work Phone: [facility] 07-19-2022 13:32-0500 Body mass index (BMI) [Ratio] 34.9 kg/m2 Dr. Bernie Reagan Work Phone: [facility] 07-19-2022 13:32-0500 Body temperature 97.2 [degF] Dr. Bernie Reagan Work Phone: [facility] 07-19-2022 13:32-0500 Body weight 83.[address] Bernie Reagan Work Phone: [facility] 07-19-2022 13:32-0500 Diastolic blood pressure 67 mm[Hg] Dr. Bernie Reagan Work Phone: [facility] 07-19-2022 13:32-0500 Heart rate 16 /min Dr. Bernie Reagan Work Phone: [facility] 07-19-2022 13:32-0500 Respiratory rate 16 /min Dr. Bernie Reagan Work Phone: [facility] 07-19-2022 13:32-0500 Systolic blood pressure 154 mm[Hg] Dr. Bernie Reagan Work Phone: [facility] 07-15-2022 13:51-0500 Body temperature 97.9 [degF] Dr. Bernie Reagan Work Phone: [facility] 07-15-2022 13:51-0500 Diastolic blood pressure 58 mm[Hg] Dr. Bernie Reagan Work Phone: [facility] 07-15-2022 13:51-0500 Heart rate 55 /min Dr. Bernie Reagan Work Phone: [facility] 07-15-2022 13:51-0500 Respiratory rate 18 /min Dr. Bernie Reagan Work Phone: [facility] 07-15-2022 13:51-0500 SaO2% (BldA) [Mass fraction] 95 % Dr. Bernie Reagan Work Phone: [facility] 07-15-2022 13:51-0500 Systolic blood pressure 126 mm[Hg] Dr. Bernie Reagan Work Phone: [facility] 07-15-2022 03:41-0500 Inhaled oxygen flow rate 3 L/min Dr. Bernie Reagan Work Phone: [facility] 07-13-2022 22:10-0500 Diastolic blood pressure 69 mm[Hg] Dr. Bernie Reagan Work Phone: [facility] 07-13-2022 22:10-0500 Heart rate 60 /min Dr. Bernie Reagan Work Phone: [facility] 07-13-2022 22:10-0500 Systolic blood pressure 152 mm[Hg] Dr. Bernie Reagan Work Phone: [facility] 07-13-2022 21:59-0500 Body temperature 99 [degF] Dr. Bernie Reagan Work Phone: [facility] 07-13-2022 21:59-0500 Inhaled oxygen flow rate 3 L/min Dr. Bernie Reagan Work Phone: [facility] 07-13-2022 21:59-0500 Respiratory rate 16 /min Dr. Bernie Reagan Work Phone: [facility] 07-13-2022 21:59-0500 SaO2% (BldA) [Mass fraction] 94 % Dr. Bernie Reagan Work Phone: [facility] 07-12-2022 11:10-0500 Body height 154.[address] Bernie Reagan Work Phone: [facility] 07-12-2022 11:10-0500 Body mass index (BMI) [Ratio] 35.4 kg/m2 Dr. Bernie Reagan Work Phone: [facility] 07-12-2022 11:10-0500 Body weight 84.[address] Bernie Reagan Work Phone: [facility] 07-09-2022 18:26-0500 Diastolic blood pressure 67 mm[Hg] Dr. Bernie Reagan Work Phone: [facility] 07-09-2022 18:26-0500 Heart rate 123 /min Dr. Bernie Reagan Work Phone: [facility] 07-09-2022 18:26-0500 Respiratory rate 19 /min Dr. Bernie Reagan Work Phone: [facility] 07-09-2022 18:26-0500 SaO2% (BldA) [Mass fraction] 95 % Dr. Bernie Reagan Work Phone: [facility] 07-09-2022 18:26-0500 Systolic blood pressure 97 mm[Hg] Dr. Bernie Reagan Work Phone: [facility] 07-09-2022 17:22-0500 Body temperature 98.2 [degF] Dr. Bernie Reagan Work Phone: [facility] 07-09-2022 16:40-0500 Body mass index (BMI) [Ratio] 35.3 kg/m2 Dr. Bernie Reagan Work Phone: [facility] 07-09-2022 16:40-0500 Body weight 84.[address] Bernie Reagan Work Phone: [facility] 07-09-2022 14:28-0500 Body height 154.[address] Bernie Reagan Work Phone: [facility] 07-06-2022 17:46-0500 Heart rate 81 /min Dr. Bernie Reagan Work Phone: [facility] 07-06-2022 17:46-0500 Respiratory rate 18 /min Dr. Bernie Reagan Work Phone: [facility] 07-06-2022 17:46-0500 SaO2% (BldA) [Mass fraction] 94 % Dr. Bernie Reagan Work Phone: [facility] 07-06-2022 16:10-0500 Body mass index (BMI) [Ratio] 37 kg/m2 Dr. Bernie Reagan Work Phone: [facility] 07-06-2022 16:10-0500 Body weight [address] Bernie Reagan Work Phone: [facility] 07-06-2022 16:00-0500 Diastolic blood pressure 66 mm[Hg] Dr. Bernie Reagan Work Phone: [facility] 07-06-2022 16:00-0500 Systolic blood pressure 148 mm[Hg] Dr. Bernie Reagan Work Phone: [facility] 07-06-2022 14:13-0500 Body temperature 97.3 [degF] Dr. Bernie Reagan Work Phone: [facility] 07-06-2022 13:46-0500 Body height 154.[address] Bernie Reagan Work Phone: [facility] 06-04-2022 11:20-0500 Body height 154.[address] Bernie Reagan Work Phone: [facility] 06-04-2022 11:20-0500 Body mass index (BMI) [Ratio] 36.8 kg/m2 Dr. Bernie Reagan Work Phone: [facility] 06-04-2022 11:20-0500 Body temperature 97 [degF] Dr. Bernie Reagan Work Phone: [facility] 06-04-2022 11:20-0500 Body weight 88.[address] Bernie Reagan Work Phone: [facility] 06-04-2022 11:20-0500 Diastolic blood pressure 68 mm[Hg] Dr. Bernie Reagan Work Phone: [facility] 06-04-2022 11:20-0500 Heart rate 58 /min Dr. Bernie Reagan Work Phone: [facility] 06-04-2022 11:20-0500 Respiratory rate 16 /min Dr. Bernie Reagan Work Phone: [facility] 06-04-2022 11:20-0500 SaO2% (BldA) [Mass fraction] 94 % Dr. Bernie Reagan Work Phone: [facility] 06-04-2022 11:20-0500 Systolic blood pressure 110 mm[Hg] Dr. Bernie Reagan Work Phone: [facility] 03-03-2022 11:15-0400 Body height 154.[address] Bernie Reagan Work Phone: [facility] Work Phone: 03-03-2022 11:15-0400 Body mass index (BMI) [Ratio] 37.3 kg/m2 Dr. Bernie Reagan Work Phone: [facility] 03-03-2022 11:15-0400 Body temperature 96.9 [degF] Dr. Bernie Reagan Work Phone: [facility] 03-03-2022 11:15-0400 Body weight 89.[address] Bernie Reagan Work Phone: [facility] 03-03-2022 11:15-0400 Diastolic blood pressure 70 mm[Hg] Dr. Bernie Reagan Work Phone: [facility] 03-03-2022 11:15-0400 Heart rate 62 /min Dr. Bernie Reagan Work Phone: [facility] 03-03-2022 11:15-0400 Respiratory rate 18 /min Dr. Bernie Reagan Work Phone: [facility] 03-03-2022 11:15-0400 SaO2% (BldA) [Mass fraction] 98 % Dr. Bernie Reagan Work Phone: [facility] 03-03-2022 11:15-0400 Systolic blood pressure 116 mm[Hg] Dr. Bernie Reagan Work Phone: [facility] 12-02-2021 10:29-0400 Body height 154.[address] Bernie Reagan Work Phone: [facility] Work Phone: 12-02-2021 10:29-0400 Body mass index (BMI) [Ratio] 36.8 kg/m2 Dr. Bernie Reagan Work Phone: [facility] Work Phone: 12-02-2021 10:29-0400 Body temperature 97.4 [degF] Dr. Bernie Reagan Work Phone: [facility] Work Phone: 12-02-2021 10:29-0400 Body weight 88.[address] Bernie Reagan Work Phone: [facility] Work Phone: 12-02-2021 10:29-0400 Diastolic blood pressure 74 mm[Hg] Dr. Bernie Reagan Work Phone: [facility] Work Phone: 12-02-2021 10:29-0400 Heart rate 70 /min Dr. Bernie Reagan Work Phone: [facility] Work Phone: 12-02-2021 10:29-0400 Respiratory rate 18 /min Dr. Bernie Reagan Work Phone: [facility] Work Phone: 12-02-2021 10:29-0400 SaO2% (BldA) [Mass fraction] 96 % Dr. Bernie Reagan Work Phone: [facility] Work Phone: 12-02-2021 10:29-0400 Systolic blood pressure 130 mm[Hg] Dr. Bernie Reagan Work Phone: [facility] Work Phone: 08-22-2021 16:52-0400 Body temperature 97.8 [degF] Dr. Bernie Reagan Work Phone: [facility] Work Phone: 08-22-2021 16:52-0400 Diastolic blood pressure 64 mm[Hg] Dr. Bernie Reagan Work Phone: [facility] Work Phone: 08-22-2021 16:52-0400 Heart rate 63 /min Dr. Bernie Reagan Work Phone: [facility] Work Phone: 08-22-2021 16:52-0400 Respiratory rate 18 /min Dr. Bernie Reagan Work Phone: [facility] Work Phone: 08-22-2021 16:52-0400 SaO2% (BldA) [Mass fraction] 97 % Dr. Bernie Reagan Work Phone: [facility] Work Phone: 08-22-2021 16:52-0400 Systolic blood pressure 139 mm[Hg] Dr. Bernie Reagan Work Phone: [facility] Work Phone: 08-22-2021 07:45-0400 Body height 154.[address] Bernie Reagan Work Phone: [facility] Work Phone: 08-22-2021 07:45-0400 Body mass index (BMI) [Ratio] 38.5 kg/m2 Dr. Bernie Reagan Work Phone: [facility] Work Phone: 08-22-2021 07:45-0400 Body weight 92.[address] Bernie Reagan Work Phone: [facility] Work Phone: 08-22-2021 06:55-0400 Inhaled oxygen flow rate 2 L/min Dr. Bernie Reagan Work Phone: [facility] Work Phone: 08-21-2021 16:26-0400 Diastolic blood pressure 76 mm[Hg] [facility] Work Phone: 08-21-2021 16:26-0400 Heart rate 63 /min [facility] Work Phone: 08-21-2021 16:26-0400 Respiratory rate 16 /min [facility] Work Phone: 08-21-2021 16:26-0400 SaO2% (BldA) [Mass fraction] 97 % [facility] Work Phone: 08-21-2021 16:26-0400 Systolic blood pressure 136 mm[Hg] [facility] Work Phone: 08-21-2021 14:30-0400 Body temperature 97.3 [degF] [facility] Work Phone: 08-21-2021 11:58-0400 Body height 160.02 cm [facility] Work Phone: 08-21-2021 11:58-0400 Body mass index (BMI) [Ratio] 37.5 kg/m2 [facility] Work Phone: 08-21-2021 11:58-0400 Body weight 96.2 kg [facility] Work Phone: NEGATED: Highlighted [id number] 15:00-0400 BMI (Body Mass Index) 38.99 kg/m2 [facility] Work Phone: NEGATED: Highlighted [id number] 15:00-0400 Body weight 94.8 kg [facility] Work Phone: NEGATED: Highlighted [id number] 15:00-0400 Body weight 95 kg [facility] [facility] Work Phone: NEGATED: Highlighted [id number] 15:00-0400 Height 156.21 cm [facility] Work Phone: NEGATED: Highlighted [id number] 15:00-0400 Height 156 cm [facility] Work Phone: Encounters Encounter Date Encounter Type Care Provider Facility Start: 10-23-2024 ambulatory Efewongbe Oleghe Facili ty:[facility] Start: 10-16-2024 ambulatory Efewongbe Oleghe Facili ty:[facility] Start: 10-15-2024 End: 10-23-2024 Evaluation and management of inpatient YAS Blanc ELVA PAINTER [employer] EDGE-PANTOGRAPH WATCHER [facility] Start: 10-12-2024 End: 10-12-2024 Emergency department patient visit MISA BROWNE DO [facility] Start: 10-09-2024 End: 10-13-[address] Bernie Reagan MD Work Phone: [facility] Work Phone: Start: 10-09-2024 End: 10-13-2024 Dr. Fatemeh Espinosa [facility] Work Phone: Start: 10-02-2024 End: 10-02-2024 Dr. Bernie Reagan MD Work Phone: -Emergency Department Work Phone: Start: 10-02-2024 End: 10-02-2024 Emergency department patient visit Dr. Bernie Reagan MD Work Phone: [facility] Work Phone: Start: 10-02-2024 Dr. Fatemeh ocampo DP -[facility] [place] Work Phone: Start: 09-24-2024 End: 09-24-2024 Mando RIDDLE -[facility] Work Phone: Start: 09-24-2024 End: 09-24-2024 ambulatory Bernie Reagan Facility:[facility] Start: 09-19-2024 End: 09-19-2024 Caitlin HALEY -[facility] Work Phone: Start: 09-19-2024 End: 09-19-2024 ambulatory Bernie Reagan Facility:[facility] Start: 09-11-2024 End: 09-12-2024 ambulatory Fatemeh Espinosa Facility:[facility] Start: 09-11-2024 End: 09-12-2024 Dr. Fatemeh Espinosa DPM -[facility] [place] Work Phone: Start: 08-20-2024 Dr. Bernie Reagan MD -[facility] Start: 08-20-2024 ambulatory Bernie Reagan Facili ty:[facility] Start: 08-20-2024 End: 08-20-2024 Dr. Bernie Reagan MD -[facility] Work Phone: Start: 08-20-2024 End: 08-20-[address] Bernie Reagan MD Work Phone: [facility] Work Phone: Start: 08-20-2024 End: 08-20-2024 ambulatory Efewongbe Oleghe Facility:[facility] Start: 05-21-2024 End: 05-21-2024 Dr. Bernie Reagan MD -[facility] Work Phone: Start: 05-21-2024 End: 05-21-2024 ambulatory Efewongbe Oleghe Facility:[facility] Start: 05-21-2024 End: 05-21-2024 ambulatory Efewmilton freewaterbe Oleghe Facility:[facility] Start: 02-09-2024 End: 02-09-2024 ambulatory Efewongbe Oleghe Facility:[facility] Start: 01-25-2024 End: 01-25-2024 ambulatory Efewongbe Oleghe Facility:[facility] Start: 12-28-2023 End: 12-28-2023 ambulatory Efewongbe Oleghe Facility:[facility] Start: 12-26-2023 End: 12-26-2023 ambulatory Efewmilton freewaterbe Oleghe Facility:[facility] Start: 12-07-2023 End: 12-07-2023 ambulatory Efewongbe Oleghe Facility:[facility] Start: 12-07-2023 End: 12-07-2023 ambulatory Efewmilton freewaterbe Oleghe Facility:[facility] Start: 09-21-2023 End: 09-21-2023 AMB External Visit VANESSA CALDWELL PAINTER SKI EDGE-PANTOGRAPH WATCHER [facility] Start: 09-14-2023 End: 09-14-[address] Bernie Reagan Work Phone: [facility] Work Phone: Start: 09-14-2023 End: 09-14-[address] Bernie Reagan Work Phone: [facility]-Pulmonary Services/Neurology Work Phone: Start: 07-20-2023 End: 07-20-2023 AMB External Visit VANESSA Serna JAVI PAINTER SK[employer] EDGE-[facility] Start: 07-10-2023 End: 07-14-2023 Evaluation and management of inpatient DR ELMA SANTIAGO MD Facility:A Start: 07-10-2023 End: 07-14-2023 Evaluation and management of inpatient ANILA ZAMBRANO MD [facility] Start: 07-10-2023 End: 07-10-2023 Emergency department patient visit BERNIE REAGAN MD Facility:B Start: 07-10-2023 End: 07-10-2023 Emergency department patient visit DR CARLOS POLANCO MD [facility] Start: 07-05-2023 Non-patient / Non-visit Dr. Alex Reagan Work Phone: [facility] Start: 07-05-2023 End: 07-05-[address] Bernie Reagan Work Phone: [facility] Work Phone: Start: 07-05-2023 End: 07-05-[address] Bernie Reagan Work Phone: [facility]-Cardiovascular Services Work Phone: Start: 06-02-2023 End: 06-02-[address] Bernie Reagan Work Phone: [facility] Work Phone: Start: 04-19-[address] Isma Reagan Work Phone: [facility] Start: 04-07-2023 End: 04-07-2023 Emergency department patient visit [facility] Work Phone: Start: 04-07-2023 End: 04-07-2023 [facility]-Emergency Department Work Phone: Start: 02-24-2023 [facility] Start: 02-08-2023 [facility] Start: 01-03-2023 Dr. Bernie Reagan Work Phone: [facility] Start: 12-22-2022 End: 12-28-2022 Evaluation and management of inpatient BERNIE REAGAN MD Facility:A Start: 12-22-2022 End: 12-28-2022 Evaluation and management of inpatient JULIUS HERNANDES DO [facility] Start: 12-22-2022 End: 12-22-2022 Emergency department patient visit BERNIE REAGAN MD Facility:B Start: 12-22-2022 End: 12-22-2022 Emergency department patient visit DR GERARD FITCH MD [facility] Start: 12-21-2022 End: 01-13-[address] Bernie Reagan Work Phone: [facility] Work Phone: Start: 12-21-2022 End: 01-13-2023 Dr. Bernie Reagan Work Phone: [facility] Work Phone: Start: 11-23-2022 End: 11-24-2022 Dr. Bernie Reagan Work Phone: [facility] Work Phone: Start: 11-12-2022 End: 11-12-2022 Dr. Bernie Reagan Work Phone: [facility] Work Phone: Start: 11-09-2022 End: 11-12-[address] Bernie Reagan Work Phone: [facility] Work Phone: Start: 11-09-2022 End: 11-12-2022 Dr. Bernie Reagan Work Phone: [facility] Work Phone: Start: 11-02-2022 Dr. Bernie Reagan Work Phone: [facility] Start: 11-01-2022 End: 11-01-[address] Bernie Reagan Work Phone: [facility] Work Phone: Start: 11-01-2022 End: 11-01-2022 Dr. Bernie Reagan Work Phone: [facility]-Laboratory, [place] Start: 11-01-2022 End: 11-01-2022 Dr. Bernie Reagan Work Phone: [facility] Start: 10-21-2022 End: 10-21-2022 Dr. Bernie Reagna Work Phone: [facility]-Laboratory Start: 10-15-2022 Dr. Bernie Reagan Work Phone: [facility] Start: 10-14-2022 End: 10-14-[address] Bernie Reagan Work Phone: [facility] Work Phone: Start: 10-14-2022 End: 10-14-2022 Dr. Bernie Reagan Work Phone: [facility]-Laboratory Start: 09-29-2022 End: 09-29-2022 Dr. Bernie Reagan Work Phone: [facility] Start: 09-20-2022 Dr. Bernie Reagan Work Phone: [facility] Start: 09-20-2022 End: 10-13-[address] Bernie Reagan Work Phone: [facility] Work Phone: Start: 09-20-2022 End: 10-13-2022 Dr. [facility] Start: 09-15-2022 Dr. Bernie Reagan Work Phone: [facility] Start: 09-15-2022 Dr. Bernie Reagan Work Phone: [facility] Start: 09-14-2022 Dr. Bernie Reagan Work Phone: [facility] Start: 09-14-2022 Dr. Bernie Reagan Work Phone: [facility] Start: 09-13-2022 Dr. Bernie Reagan Work Phone: [facility] Start: 09-12-2022 Dr. Bernie Reagan Work Phone: [facility] Start: 09-11-2022 End: 09-11-2022 Dr. Bernie Reagan Work Phone: [facility] Start: 09-10-2022 Dr. Bernie Reagan Work Phone: [facility] Start: 09-09-2022 End: 09-15-2022 Evaluation and management of inpatient Dr. Bernie Reagan Work Phone: [facility] Work Phone: Start: 09-09-2022 End: 09-15-2022 Dr. Bernie Reagan Work Phone: [facility]-Progressive Care Unit Start: 09-06-2022 End: 09-06-2022 Emergency department patient visit Dr. Bernie Reagan Work Phone: [facility] Work Phone: Start: 09-06-2022 End: 09-06-2022 Dr. Bernie Reagan Work Phone: [facility]-Emergency Department Start: 09-06-2022 End: 09-12-2022 Dr. Bernie Reagan Work Phone: [facility]-Wound Healing Center Start: 09-01-2022 End: 09-12-[address] Bernie Reagan Work Phone: [facility] Work Phone: Start: 09-01-2022 End: 09-12-2022 Dr. Bernie Reagan Work Phone: [facility]-Laboratory, [facility] Start: 09-01-2022 End: 09-01-2022 Dr. Bernie Reagan Work Phone: [facility] Start: 08-23-2022 Dr. Bernie Reagan Work Phone: [facility] Start: 08-18-2022 End: 09-12-[address] Bernie Reagan Work Phone: [facility] Work Phone: Start: 08-18-2022 End: 09-12-2022 Dr. Bernie Reagan Work Phone: [facility]-Home Health Lab Start: 08-16-2022 Dr. Bernie Reagan Work Phone: [facility] Start: 08-15-2022 Dr. Bernie Reagan Work Phone: [facility] Start: 08-14-2022 Dr. Bernie Raegan Work Phone: [facility] Start: 08-13-2022 Dr. Bernie Reagan Work Phone: [facility] Start: 08-13-2022 Dr. Bernie Reagan Work Phone: [facility] Start: 08-12-2022 End: 08-12-2022 Dr. Bernie Reagan Work Phone: [facility] Start: 08-11-2022 End: 08-16-2022 Evaluation and management of inpatient Dr. Bernie Reagan Work Phone: [facility] Work Phone: Start: 08-11-2022 End: 08-16-2022 Dr. Bernie Reagan Work Phone: [facility]-Progressive Care Unit Start: 08-05-2022 End: 08-05-[address] Bernie Reagna Work Phone: [facility] Work Phone: Start: 08-05-2022 End: 08-05-2022 Dr. Bernie Reagan Work Phone: [facility]-Laboratory Start: 08-04-2022 End: 08-13-[address] Bernie Reagan Work Phone: [facility] Work Phone: Start: 08-04-2022 End: 08-13-2022 Dr. [facility] Reagan [facility] Start: 08-02-2022 End: 08-13-[address] Bernie Reagan Work Phone: [facility] Work Phone: Start: 08-02-2022 End: 08-13-2022 Dr. Bernie Reagan Work Phone: [facility] Start: 07-28-2022 Dr. Bernie Reagan Work Phone: [facility] Start: 07-27-2022 End: 07-27-[address] Bernie Reagan Work Phone: [facility] Work Phone: Start: 07-27-2022 End: 07-27-2022 Dr. Bernie Reagan Work Phone: [facility]-Laboratory Start: 07-26-2022 Dr. Bernie Reagan [facility] Start: 07-22-2022 End: 07-22-2022 Dr. Bernie Reagan Work Phone: [facility] Medicine Start: 07-21-2022 Dr. Bernie Reagan Work Phone: [facility] Start: 07-19-2022 Dr. Bernie Reagan Work Phone: [facility] Start: 07-19-2022 Dr. Bernie Reagan [facility] Start: 07-16-2022 End: 07-16-[address] Bernie Reagan Work Phone: [facility] Work Phone: Start: 07-16-2022 End: 07-16-2022 Dr. Bernie Reagan Work Phone: [facility]-Medical Out Start: 07-15-2022 Dr. Bernie Reagan Work Phone: [facility] Start: 07-14-2022 Dr. Bernie Reagan Work Phone: [facility] Start: 07-14-2022 Dr. Bernie Reagan Work Phone: [facility] Start: 07-13-2022 Dr. Bernie Reagan Work Phone: [facility] Start: 07-12-2022 Dr. Bernie Reagan Work Phone: [facility] Start: 07-12-2022 Dr. Bernie Reagan Work Phone: [facility] Start: 07-11-2022 Dr. Bernie Reagan Work Phone: [facility] Start: 07-09-2022 End: 07-09-2022 Dr. Bernie Reagan Work Phone: [facility] Start: 07-09-2022 Non-patient / Non-visit Dr. Alex Reagan Work Phone: [facility] Start: 07-09-2022 Evaluation and management of inpatient Dr. Bernie Reagan Work Phone: [facility]-Progressive Care Unit Start: 07-09-2022 End: 07-15-2022 Dr. Bernie Reagan Work Phone: [facility] Start: 07-06-2022 End: 07-06-2022 Emergency department patient visit Dr. Bernie Reagan Work Phone: [facility]-Emergency Department Start: 07-06-2022 End: 07-06-2022 Dr. Bernie Reagan Work Phone: [facility]-Emergency Department Start: 07-03-2022 End: 07-03-[address] Bernie Reagan Work Phone: [facility] Work Phone: Start: 07-03-[address] Mary Reagan Work Phone: [facility]-Laboratory Start: 07-03-2022 End: 07-03-2022 Dr. Bernie Reagan Work Phone: [facility]-Laboratory Start: 06-04-[address] Bernie Reagan Work Phone: [facility] Start: 06-04-2022 End: 06-04-[address] Bernie Reagan Work Phone: [facility] Work Phone: Start: 06-04-2022 End: 06-04-2022 Encounter for general adult medical examination without abnormal findings Dr. Bernie Reagan Work Phone: [facility] Start: 06-04-2022 End: 06-04-[address] Bernie Reagan Work Phone: [facility] Start: 06-04-2022 End: 06-04-2022 Dr. Bernie Reagan Work Phone: [facility] Start: 03-03-2022 End: 03-03-[address] Bernie Reagan Work Phone: [facility] Work Phone: Start: 03-03-2022 End: 03-03-[address] Bernie Reagan Work Phone: [facility] [place] Start: 03-03-2022 End: 03-03-[address] Bernie Reagan Work Phone: [facility] Internal [facility] Start: 12-02-2021 End: 12-02-[address] Bernie Reagan Work Phone: [facility] [place] Start: 12-02-2021 End: 12-02-[address] Bernie Reagan Work Phone: [facility] Start: 09-17-2021 End: 09-17-[address] Bernie Reagan Work Phone: [place] [id number] Start: 09-17-2021 End: 09-17-2021 Dr. Bernie Reagan Work Phone: [place] [id number] Start: 09-10-2021 End: 09-10-[address] Bernie Lopez Phone: [place] [id number] Start: 09-10-2021 End: 09-10-2021 Dr. Bernie Reagan Work Phone: [place] [id number] Start: 09-03-2021 End: 09-03-[address] Bernie Reagan Work Phone: [place] [id number] Start: 09-03-2021 End: 09-03-2021 Dr. Bernie Reagan Work Phone: [place] [id number] Start: 08-27-2021 End: 08-27-[address] Bernie Reagan Work Phone: [place] [phone] Start: 08-27-2021 End: 08-27-2021 Dr. Bernie Reagan Work Phone: [place] [id number] Start: 08-22-2021 Non-patient / Non-visit Dr. Alex Reagan Work Phone: [facility] Start: 08-22-2021 Dr. Bernie Reagan Work Phone: [facility] Start: 08-22-2021 Non-patient / Non-visit Dr. Alex Reagan Work Phone: [facility] Start: 08-22-2021 Dr. Bernie Reagan Work Phone: [facility] Start: 08-21-2021 Non-patient / Non-visit Dr. Alex Reagan Work Phone: [facility] Start: 08-21-2021 Dr. Bernie Reagan Work Phone: [facility] Start: 08-21-2021 End: 08-22-2021 Evaluation and management of inpatient [facility]. Bernie Reagan [facility] Start: 08-21-2021 End: 08-22-[address] [facility] Surgical 3 Start: 08-13-2021 End: 08-13-[address] Bernie Reagan Work Phone: [place] [phone] Start: 08-13-2021 Registered Referred [place] [id number] Start: 08-13-2021 [place] [id number] Start: 08-06-2021 End: 08-06-[address] Bernie Reagan Work Phone: [place] [phone] Start: 08-06-2021 Registered Referred [place] [id number] Start: 08-06-2021 [place] [id number] Start: 07-30-2021 End: 07-30-2021 Departed Referred [facility] 300 Start: 07-30-2021 End: 07-30-2021 [place] [id number] Start: 07-27-2021 End: 07-27-[address] Bernie Reagan Work Phone: [place] [phone] Start: 07-27-2021 Registered Referred [place] [id number] Start: 07-27-2021 [place] [id number] Start: 07-23-2021 End: 07-23-[address] Bernie Reagan Work Phone: [place] [phone] Start: 07-23-2021 Registered Referred [place] [id number] Start: 07-23-2021 [place] [id number] Start: 07-20-2021 End: 07-20-2021 Subsequent hospital visit by physician [facility] Provider MYLENE MERCHANT Comment on above: DISPLACED TRANSCONDY FX R HUMERUS, SUBS Start: 07-18-2021 End: 07-18-2021 Departed Referred [place] [id number] Start: 07-18-2021 Registered Referred [facility] 300 Start: 07-18-2021 End: 07-18-2021 [facility] 300 Start: 07-15-2021 End: 07-15-[address] Bernie Reagan Work Phone: [place] [phone] Start: 07-15-2021 Registered Referred [place] [id number] Start: 07-15-2021 [place] [id number] Start: 07-14-2021 End: 07-14-[address] Bernie Reagan Work Phone: [facility] 300 Start: 07-14-2021 Registered Referred [facility] 300 Start: 07-14-2021 [facility] 300 Start: 07-07-2021 End: 07-07-[address] Bernie Reagan Work Phone: [facility] 300 Start: 07-07-2021 Registered Referred [facility] 300 Start: 07-07-2021 [facility] 300 Start: 06-30-2021 Registered Referred [facility] 300 Start: 06-30-2021 [facility] 300 Start: 06-23-2021 Registered Referred [facility] 300 Start: 06-23-2021 [facility] 300 Start: 06-19-2021 Registered Referred [facility] 300 Start: 06-19-2021 [facility] 300 Start: 06-16-2021 Registered Referred [facility] 300 Start: 06-16-2021 [facility] 300 Start: 06-09-2021 Registered Referred [facility] 300 Start: 06-09-2021 [facility] 300 Start: 06-02-2021 Registered Referred [facility] 300 Start: 06-02-2021 [facility] 300 Start: 05-26-2021 Registered Referred [facility] 300 Start: 05-26-2021 [facility] 300 Start: 05-19-2021 Registered Referred [facility] 300 Start: 05-19-2021 [facility] 300 Start: 05-12-2021 Registered Referred [place] [id number] Start: 05-12-2021 [place] [id number] Start: 05-05-2021 Registered Referred [place] [id number] Start: 05-05-2021 [place] [id number] Start: 04-28-2021 Registered Referred [place] [id number] Start: 04-28-2021 [place] [id number] Start: 02-23-2021 Patient encounter status [facility] Start: 10-16-2019 End: 10-16-2019 Patient encounter procedure Mando Claire MD Work Phone: [facility] Work Phone: Procedures Date Procedure Procedure Detail Performing Clinician Start: 10-02-2024 Urine microscopy: re d cells Dr. Bernie Reagan MD Work Phone: Start: 10-02-2024 Urnls dip stick/tabl et reagent auto microscopy Dr. Bernie Reagan MD Work Phone: Start: 10-02-2024 X-ray of chest, PA a nd lateral views Dr. Bernie Reagan MD Work Phone: Start: 10-02-2024 Blood count smear mc rscp w/mnl difrntl wbc count Dr. Bernie Reagan MD Work Phone: Start: 10-02-2024 Calculation of international normalized ratio Dr. Bernie Reagan MD Work Phone: Start: 10-02-[address] Bernie Reagan MD Work Phone: Start: 10-02-2024 Mean corpuscular hemoglobin concentration determination Dr. Bernie Reagan MD Work Phone: Start: 10-02-2024 Nucleated red blood cell count procedure Dr. Bernie Reagan MD Work Phone: Start: 10-02-2024 Platelet mean volume determination Dr. Bernie Reagan MD Work Phone: Start: 10-02-2024 Triacylglycerol lipa se measurement Dr. Bernie Reagan MD Work Phone: Start: 10-02-[address] Mary Reagan MD Work Phone: Start: 10-02-[address] Mary Reagan MD Work Phone: Start: 08-20-2024 Plain X-ray of toe Dr. Bernie Reagan MD Work Phone: Start: 08-20-2024 Blood count smear mc rscp w/mnl difrntl wbc count Dr. Bernie Reagan MD Work Phone: Start: 08-20-2024 Mean corpuscular hemoglobin concentration determination Dr. Bernie Reagan MD Work Phone: Start: 08-20-2024 Nucleated red blood cell count procedure Dr. Bernie Reagan MD Work Phone: Start: 08-20-2024 Platelet mean volume determination Dr. Bernie Reagan MD Work Phone: Start: 08-20-2024 Vitamin D, 25-hydrox y measurement Dr. Bernie Reagan MD Work Phone: Start: 07-13-2023 Cardioversion VANESSA THOMPSON [employer]INTER [employer] Comment on above: Sucessful Start: 07-11-2023 Echocardiography PERI CALDWELL [employer]INTER [employer] Comment on above: Summary: 1. Left ventricle: The cavity size is normal. Wall thickness is mildly to moderately increased. Systolic function is normal. The estimated ejection fraction is 65-70%. Wall motion is normal; there are no regional wall motion abnormalities. Unable to assess diastolic function. 2. Ventricular septum: Thickness is moderately increased. 3. Mitral valve: The annulus is moderately fibrotic. The leaflets are mildly thickened. 4. Right ventricle: Systolic function is severely reduced. The RV systolic pressure by Doppler is 28 mm Hg. 5. Right atrium: The estimated right atrial pressure is 8 mm Hg. Start: 04-07-2023 Plain chest X-ray Start: 10-26-[address] Bernie Reagan Work Phone: Start: 10-26-2022 Investigation of transfusion reaction Dr. Bernie Reagan Work Phone: Start: 10-26-2022 Microbial culture, routine Dr. Bernie Reagan Work Phone: Start: 09-13-2022 Plain chest X-ray Dr. Derrick Reagan Work Phone: Start: 09-10-2022 Dr. Isma Reagan Work Phone: Start: 09-09-2022 CT angiography of ch est with contrast Dr. Bernie Reagan Work Phone: Start: 09-09-2022 Plain chest X-ray Dr. Derrick Reagan Work Phone: Start: 09-09-[address] Mary Reagan Work Phone: Start: 09-09-2022 Dr. Isma Reagan Work Phone: Start: 09-06-[address] Mary Reagan Work Phone: Start: 09-06-2022 Dr. Isma Reagan Work Phone: Start: 08-11-2022 Plain chest X-ray Dr. Derrick Reagan Work Phone: Start: 07-12-2022 Incision and drainag e of abscess Dr. Bernie Reagan Work Phone: Start: 07-10-2022 MRI of upper limb Dr. Derrick Reagan Work Phone: Start: 07-09-2022 Plain x-ray of hand Dr. Bernie Reagan Work Phone: Start: 07-06-2022 Plain x-ray of hand Dr. Bernie Reagan Work Phone: Start: 08-22-[address] Isma Reagan Work Phone: Start: 08-22-2021 Plain chest X-ray Dr. Derrick Reagan Work Phone: Start: 08-21-2021 Measurement of occul t blood in stool specimen using immunoassay Start: 07-20-2021 Antibody screen Comment on above: Order Comment: Campu s: M Start: 07-15-2021 Urine culture Start: 07-01-2021 Urine culture Start: 06-19-2021 Urine culture Start: 04-07-2021 Ecg routine ecg w/le ast 12 lds i&r only Start: 10-16-2019 End: 10-16-2019 Blood pressure screening not performed - reason not given Mando Claire MD Work Phone: Start: 10-16-2019 End: 10-16-2019 BMI documented as above normal parameters - follow-up documented Mando Claire MD Work Phone: Start: 10-16-2019 End: 10-16-2019 Documentation of current medications Mando Claire MD Work Phone: Start: 10-16-2019 End: 10-16-2019 Pain assessment documented as positive - follow-up documented Mando Claire MD Work Phone: Start: 10-16-2019 End: 10-16-2019 Tobacco non-user Mando Claire MD Work Phone: Start: 06-29-2018 [facility]ammography [facility] Start: 04-25-2012 Colonoscopy [facility] Anaerobic microbial culture Dr. Bernie Reagan Work Phone: Anaerobic microbial culture Dr. Bernie Reagan Work Phone: Bacteria identified in Blood by Culture Dr. Bernie Reagan Work Phone: Fungus stain method Dr. Yahir Reagan Work Phone: H/O: hysterectomy Dr. Isma Reagan Work Phone: History of amputatio n of finger Dr. Bernie Reagan Work Phone: History of decompres robson of median nerve Dr. Bernie Reagan Work Phone: Investigation of transfusion reaction Dr. Bernie Reagan Work Phone: Investigation of transfusion reaction Dr. Bernie Reagan Work Phone: Investigation of transfusion reaction Dr. Bernie Reagan Work Phone: Measurement of occul t blood in stool specimen using immunoassay Dr. Bernie Reagan Work Phone: Microbial culture, routine D clara Reagan Work Phone: Microbial culture, routine D clara Servinbrea Work Phone: Microbial culture, routine D clara Servinbrea Work Phone: Mycology culture Dr. Anjelica Reagan Work Phone: Urine culture Dr. Bernie Reagan Work Phone: Urine culture Dr. Bernie Reagan Work Phone: Urine culture Dr. Bernie Reagan Work Phone: Viral antigen assay Dr. Yahir Reagan Work Phone: Dr. Bernie trinidad Work Phone: Dr. Bernie trinidad Work Phone: Dr. Bernie trinidad Work Phone: Dr. Bernie trinidad Work Phone: NEGATED: Highlighted rowStart: 10-16-2019 End: 10-16-2019 Documentation of current medications Lisa Bar Plan of Treatment Date Care Activity Detail Author Start: 10-02-2024 End: 10-02-2024 [facility] Start: 08-20-2024 Patient referral [facility] Work Phone: Start: 04-07-2023 [facility] Start: 04-07-2023 End: 04-07-2023 [facility] Start: 10-15-2022 Patient referral [facility] Work Phone: Start: 09-29-2022 Patient referral [facility] Work Phone: Start: 09-29-2022 Evaluation of diagnostic study results [facility] Start: 09-21-2022 Blood chemistry [facility] Start: 09-20-2022 Blood chemistry [facility] Start: 09-19-2022 Blood chemistry [facility] Start: 09-18-2022 Blood chemistry [facility] Start: 09-17-2022 Blood chemistry [facility] Start: 09-15-2022 Referral to service [facility] Start: 09-15-2022 Patient discharge [facility] Start: 09-14-2022 Referral to associate professor of violin [facility] Start: 09-13-2022 [facility] Start: 09-13-2022 Blood chemistry [facility] Start: 09-13-2022 Plain chest X-ray [facility] Start: 09-13-2022 Prothrombin time [facility] Start: 09-12-2022 Blood chemistry [facility] Start: 09-09-2022 Following clinical pathway protocol [facility] Start: 09-09-2022 Assessment of risk of venous thromboembolism [facility] Start: 09-09-2022 Cardiac monitoring [facility] Start: 09-09-2022 Care regimes management [facility] Start: 09-09-2022 Catheterization of vein [facility] Start: 09-09-2022 Continuous pulse oximetry [facility] Start: 09-09-2022 Inhalation therapy procedure [facility] Start: 09-09-2022 Insertion of catheter into peripheral vein [facility] Start: 09-09-2022 Measuring intake and output [facility] Start: 09-09-2022 Notification of physician [facility] Start: 09-09-2022 Oxygen therapy [facility] Start: 09-09-2022 Physiotherapy of chest [facility] Start: 09-09-2022 Providing care according to standard [facility] Start: 09-09-2022 Provision of activity privileges [facility] Start: 09-09-2022 Referral to occupational therapist [facility] Start: 09-09-2022 Referral to service [facility] Start: 09-09-2022 [facility] Start: 09-09-2022 Streptococcus pneumoniae antigen assay [facility] Start: 09-09-2022 Viral nucleic acid assay [facility] Start: 09-09-2022 Bacteria identified in Sputum by Culture [facility] Start: 09-09-2022 Verification routine [facility] Start: 09-09-2022 Admission procedure [facility] Start: 09-09-2022 CT angiography of chest with contrast [facility] Start: 09-09-2022 End: 09-09-2022 [facility] Start: 09-09-2022 Taking nasal swab [facility] Start: 09-09-2022 End: 09-09-2022 Blood culture [facility] Start: 09-09-2022 Patient referral to dietitian [facility] Start: 09-06-2022 [facility] Start: 09-06-2022 Emergency department visit high/urgent severity [facility] Start: 09-06-2022 Ther proph/dx njx iv push single/1st sbst/drug [facility] Start: 08-16-2022 Referral to service [facility] Start: 08-16-2022 Patient discharge [facility] Start: 08-15-2022 Prothrombin time [facility] Start: 08-14-2022 Prothrombin time [facility] Start: 08-13-2022 End: 08-13-2022 Care planning and problem solving actions [facility] Start: 08-13-2022 Referral to associate professor of violin [facility] Start: 08-13-2022 Referral to occupational therapist [facility] Start: 08-13-2022 Referral to service [facility] Start: 08-13-2022 Prothrombin time [facility] Start: 08-12-2022 Verification routine [facility] Start: 08-12-2022 Care planning and problem solving actions [facility] Start: 08-12-2022 Wound care [facility] Start: 08-12-2022 Consultation for treatment [facility] Start: 08-12-2022 Contact precautions [facility] Start: 08-12-2022 Following clinical pathway protocol [facility] Start: 08-12-2022 Peripherally inserted central catheter care [facility] Start: 08-12-2022 Assessment of risk of venous thromboembolism [facility] Start: 08-12-2022 Care regimes management [facility] Start: 08-12-2022 Insertion of catheter into peripheral vein [facility] Start: 08-12-2022 Measuring intake and output [facility] Start: 08-12-2022 Notification of physician [facility] Start: 08-12-2022 Oxygen therapy [facility] Start: 08-12-2022 Providing care according to standard [facility] Start: 08-12-2022 Provision of activity privileges [facility] Start: 08-12-2022 Referral to service [facility] Start: 08-12-2022 [facility] Start: 08-12-2022 Patient referral to dietitian [facility] Start: 08-11-2022 Verification routine [facility] Start: 08-11-2022 Admission procedure [facility] Start: 08-11-2022 End: 08-12-2022 [facility] Start: 07-22-2022 Patient referral [facility] Work Phone: Start: 07-17-2022 Prothrombin time [facility] Start: 07-16-2022 Iv infusion therapy/prophylaxis /dx 1st to 1 hr [facility] Start: 07-16-2022 Therapeutic prophylactic/dx injection subq/im [facility] Start: 07-16-2022 Prothrombin time [facility] Start: 07-15-2022 Patient discharge [facility] Start: 07-15-2022 Prothrombin time [facility] Start: 07-15-2022 [facility] Start: 07-14-2022 Prothrombin time [facility] Start: 07-13-2022 Consultation for treatment [facility] Start: 07-13-2022 Peripherally inserted central catheter care [facility] Start: 07-13-2022 Blood culture [facility] Start: 07-13-2022 End: 07-13-2022 Wound care [facility] Start: 07-13-2022 Application of intermittent pneumatic compression device [facility] Start: 07-12-2022 Referral to service [facility] Start: 07-12-2022 Prothrombin time [facility] Start: 07-12-2022 [facility] Start: 07-11-2022 Blood chemistry [facility] Start: 07-11-2022 Prothrombin time [facility] Start: 07-10-2022 Consultation [facility] Start: 07-10-2022 Blood chemistry [facility] Start: 07-10-2022 Prothrombin time [facility] Start: 07-10-2022 Thyroid stimulating hormone measurement [facility] Start: 07-09-2022 Following clinical pathway protocol [facility] Start: 07-09-2022 Consultation [facility] Start: 07-09-2022 Ambulation without limitation [facility] Start: 07-09-2022 Assessment of risk of venous thromboembolism [facility] Start: 07-09-2022 Care regimes management [facility] Start: 07-09-2022 Elevation of affected extremity [facility] Start: 07-09-2022 Incentive spirometry [facility] Start: 07-09-2022 Insertion of catheter into peripheral vein [facility] Start: 07-09-2022 Measuring intake and output [facility] Start: 07-09-2022 Notification of physician [facility] Start: 07-09-2022 Oxygen therapy [facility] Start: 07-09-2022 Providing care according to standard [facility] Start: 07-09-2022 Referral to occupational therapist [facility] Start: 07-09-2022 Referral to service [facility] Start: 07-09-2022 Wound care [facility] Start: 07-09-2022 [facility] Start: 07-09-2022 Care planning and problem solving actions [facility] Start: 07-09-2022 Verification routine [facility] Start: 07-09-2022 Admission procedure [facility] Start: 07-09-2022 MRI of upper limb Upper Ext/No Jt/ wo [facility] Start: 07-09-2022 End: 07-09-2022 Blood culture [facility] Start: 07-06-2022 End: 07-06-2022 Blood culture [facility] Start: 07-06-2022 [facility] Start: 07-06-2022 Emergency department visit low/moder severity [facility] Start: 04-25-2022 Colonoscopy COLONOSCOPY [facility] Start: 04-25-2022 COLORECTAL CANCER SCREENING COLORECTAL CANCER SCREENING [facility] Start: 08-22-2021 Patient discharge [facility] Work Phone: Start: 08-21-2021 Notification of physician [facility] Work Phone: Start: 08-21-2021 End: 08-21-2021 Catheterization of vein [facility] Work Phone: Start: 08-21-2021 Following clinical pathway protocol [facility] Work Phone: Start: 08-21-2021 Application of intermittent pneumatic compression device [facility] Work Phone: Start: 08-21-2021 Assessment of risk of venous thromboembolism [facility] Work Phone: Start: 08-21-2021 Insertion of catheter into peripheral vein [facility] Work Phone: Start: 08-21-2021 Oxygen therapy [facility] Work Phone: Start: 08-21-2021 Providing care according to standard [facility] Work Phone: Start: 08-21-2021 Referral to gastroenterology service [facility] Work Phone: Start: 08-21-2021 Referral to occupational therapist [facility] Work Phone: Start: 08-21-2021 Referral to service [facility] Work Phone: Start: 08-21-2021 End: 08-21-2021 [facility] Work Phone: Start: 08-21-2021 Admission procedure [facility] Work Phone: Start: 05-16-2021 ADVANCE DIRECTIVE DISCUSSION ADVANCE DIRECTIVE DISCUSSION [facility] Start: 02-27-2021 Urine microalbumin profile DTAP,TDAP,TD (2 - Td or Tdap) [facility] Start: 01-14-2021 Influenza vaccination INFLUENZA (#1) [facility] Start: 12-08-2019 ANNUAL PCP TEAM CHRONIC DISEASE VISIT ANNUAL PCP TEAM CHRONIC DISEASE VISIT [facility] Start: 12-04-2019 End: 12-04-2019 Appointment Appointment [facility] Work Phone: Start: 11-02-2019 End: 11-02-2019 Appointment Appointment [facility] Work Phone: Start: 10-22-2019 End: 10-22-2019 Appointment Appointment [facility] Work Phone: Start: 10-16-2019 End: 10-16-2019 Appointment Appointment [facility] Work Phone: Start: 10-16-2019 End: 10-16-2019 Radex hand minimum 3 views XR HAND 3+ VWS-RT [facility] Work Phone: Start: 09-29-2019 Hepatitis B surface antibody level LDL CHOLESTEROL [facility] Start: 06-29-2019 Mammography MAMMOGRAM [facility] Start: 05-18-2019 Hepatitis B screening URINE ALBUMIN:CREATININE RATIO [facility] Start: 03-31-2019 Hemoglobin A1c/Hemoglobin.total in Blood HBA1C [facility] Start: 02-17-2019 Hepatitis C antibody, confirmatory test DILATED RETINAL EXAM [facility] Start: 04-28-2017 PNEUMOVAX AGE 65 AND OVER WITH 5YR LOOKBACK (#1) PNEUMOVAX AGE 65 AND OVER WITH 5YR LOOKBACK (#1) [facility] Start: 02-08-2017 3 comp foot exam completed DIABETIC FOOT EXAM [facility] Start: 01-19-2017 BONE DENSITY BONE DENSITY [facility] Start: 01-19-2002 SHINGRIX VACCINE (1 of 2) SHINGRIX VACCINE (1 of 2) [facility] Start: 01-19-1997 COLOGUARD (FIT-DNA) COLOGUARD (FIT-DNA) [facility] Start: 01-19-[address] COLONOGRAPHY [facility] Start: 01-19-1997 FECAL OCCULT BLOOD FECAL OCCULT BLOOD [facility] Start: 01-19-1997 SIGMOIDOSCOPY SIGMOIDOSCOPY [facility] Start: 01-19-1970 BP CONTROLLED (<130/80) BP CONTROLLED (<130/80) [facility] Start: 01-19-1957 COVID-19 VACCINE (1) COVID-19 VACCINE (1) [facility] Anion gap measurement [facility] Anion gap measurement [facility] Anion gap measurement [facility] Anion gap measurement [facility] Bacteria identified in Blood by Culture Blood Culture [facility] Bacteria identified in Unspecified specimen by Anaerobe culture [facility] BUN/Creatinine ratio [facility] BUN/Creatinine ratio [facility] BUN/Creatinine ratio [facility] BUN/Creatinine ratio [facility] Calcium [Mass/volume ] in Serum or Plasma [facility] Calcium [Mass/volume ] in Serum or Plasma [facility] Calcium [Mass/volume ] in Serum or Plasma [facility] Calcium [Mass/volume ] in Serum or Plasma [facility] Carbon dioxide, tota l [Moles/volume] in Serum or Plasma [facility] Carbon dioxide, tota l [Moles/volume] in Serum or Plasma [facility] Carbon dioxide, tota l [Moles/volume] in Serum or Plasma [facility] Carbon dioxide, tota l [Moles/volume] in Serum or Plasma [facility] Chloride [Moles/volu me] in Serum or Plasma [facility] Chloride [Moles/volu me] in Serum or Plasma [facility] Chloride [Moles/volu me] in Serum or Plasma [facility] Chloride [Moles/volu me] in Serum or Plasma [facility] Creatinine [Moles/vo lume] in Serum or Plasma [facility] Creatinine [Moles/vo lume] in Serum or Plasma [facility] Creatinine [Moles/vo lume] in Serum or Plasma [facility] Creatinine [Moles/vo lume] in Serum or Plasma [facility] DXA Bone [Mass/Area] Bone density [facility] DXA Bone [Mass/Area] Bone density [facility] DXA Bone [Mass/Area] Bone density [facility] Glucose [Mass/volume ] in Serum or Plasma [facility] Glucose [Mass/volume ] in Serum or Plasma [facility] Glucose [Mass/volume ] in Serum or Plasma [facility] Glucose [Mass/volume ] in Serum or Plasma [facility] Hematocrit [Volume Fraction] of Blood [facility] Hematocrit [Volume Fraction] of Blood [facility] Hemoglobin [Mass/vol ume] in Blood [facility] Hemoglobin [Mass/vol ume] in Blood [facility] Hemoglobin A1c/Hemoglobin.total in Blood [facility] INR in Blood by Coagulation assay [facility] INR in Blood by Coagulation assay [facility] INR in Blood by Coagulation assay [facility] INR in Blood by Coagulation assay [facility] INR in Blood by Coagulation assay [facility] INR in Blood by Coagulation assay [facility] INR in Blood by Coagulation assay [facility] INR in Blood by Coagulation assay [facility] INR in Blood by Coagulation assay [facility] INR in Blood by Coagulation assay [facility] INR in Blood by Coagulation assay [facility] Lactic acid measurement [facility] Legionella pneumophi la Ag [Presence] in Urine [facility] Leukocytes [#/volume ] in Blood [facility] Leukocytes [#/volume ] in Blood [facility] Mean corpuscular hemoglobin concentration determination [facility] Mean corpuscular hemoglobin concentration determination [facility] Mean corpuscular hemoglobin determination [facility] Mean corpuscular hemoglobin determination [facility] Measurement of renal function [facility] Measurement of renal function [facility] Measurement of renal function [facility] Measurement of renal function [facility] MG Breast - bilatera l Screening [facility] Microbial culture, routine [facility] Microscopic observat ion [Identifier] in Unspecified specimen by Gram stain Gram Stain [facility] Microscopic urinalysis [facility] Neutrophil count [facility] Neutrophil count [facility] Neutrophil percent differential count [facility] Neutrophil percent differential count [facility] Organism count, microscopic method [facility] Patient Education [facility] Work Phone: Patient referral [facility] Work Phone: Platelets [#/volume] in Blood [facility] Platelets [#/volume] in Blood [facility] Potassium [Moles/vol ume] in Serum or Plasma [facility] Potassium [Moles/vol ume] in Serum or Plasma [facility] Potassium [Moles/vol ume] in Serum or Plasma [facility] Potassium [Moles/vol ume] in Serum or Plasma [facility] Prealbumin [Mass/vol ume] in Serum or Plasma [facility] Prothrombin time [facility] Red blood cell count [facility] Red blood cell count [facility] Red cell distributio n width determination [facility] Red cell distributio n width determination [facility] SARS-CoV-2 (COVID-19 ) Ag [Presence] in Respiratory specimen by Rapid immunoassay [facility] Sodium [Moles/volume ] in Serum or Plasma [facility] Sodium [Moles/volume ] in Serum or Plasma [facility] Sodium [Moles/volume ] in Serum or Plasma [facility] Sodium [Moles/volume ] in Serum or Plasma [facility] Troponin T.cardiac [Mass/volume] in Serum or Plasma by High sensitivity method [facility] Urea nitrogen [Mass/volume] in Serum or Plasma [facility] Urea nitrogen [Mass/volume] in Serum or Plasma [facility] Urea nitrogen [Mass/volume] in Serum or Plasma [facility] Urea nitrogen [Mass/volume] in Serum or Plasma [facility] Urinalysis, blood, qualitative [facility] Urine culture [facility] Urine culture [facility] Urine microalbumin/creatinine ratio measurement [facility] Urine microscopy: epithelial cells [facility] Vancomycin [Mass/vol ume] in Serum or Plasma --trough [facility] Vancomycin [Mass/vol ume] in Serum or Plasma --trough [facility] Vancomycin [Mass/vol ume] in Serum or Plasma --trough [facility] Vancomycin [Mass/vol ume] in Serum or Plasma --trough [facility] White blood cell count [facility] Wound Culture Wound Culture [facility] XR Chest Single view [facility] Immunizations Immunization Date Immunization Notes Care Provider Fa kazadrienne 10-12-2024 tetanus toxoid, redu beena diphtheria toxoid, and acellular pertussis vaccine, adsorbed MISA PAVAN DO [facility] 03-11-2022 Covid Pfizer Bivalen t Booster Dr. Bernie Reagan Work Phone: [facility] 03-03-2022 influenza virus vacc ine, unspecified formulation DR CARLOS POLANCO MD [facility] 03-03-2022 influenza, injectabl e, quadrivalent, preservative free [facility] 03-03-2022 influenza, seasonal, injectable Dr. Bernie Reagan Work Phone: [facility] 03-10-2021 [facility] Comment on above: Result Comment: 2023: [id number] 08-11-2020 [facility] [place] Comment on above: Result Comment: 2023: [id number] 07-14-2020 [facility] Comment on above: Result Comment: 2023: [id number] 03-04-2020 influenza virus vacc ine, unspecified formulation DR CARLOS POLANCO MD [facility] 03-04-2020 influenza, injectabl e, quadrivalent, preservative free [facility] 03-04-2020 influenza, seasonal, injectable [facility] 03-04-2020 pneumococcal conjuga te vaccine, 13 valent [facility] 03-04-2020 pneumococcal vaccine , unspecified formulation [facility] Work Phone: 03-04-2020 Fluad Quad (65yr up)(PF) 60 mcg (15 mcg x 4)/0.5mL IM syringe (flu vac [facility] Work Phone: 03-04-2020 [facility] Work Phone: 03-19-2019 Fluad 2019-20 65yr up(PF)45 mcg(15 mcgx3)/0.5 mL intramuscular syringe (flu vac [facility] Work Phone: 03-19-2019 [facility] Work Phone: 02-13-2013 influenza virus vacc ine, unspecified formulation [facility] 04-28-2012 pneumococcal polysaccharide vaccine, 23 valent [facility] 03-09-2012 influenza virus vacc ine, unspecified formulation [facility] 02-27-2011 tetanus toxoid, redu beena diphtheria toxoid, and acellular pertussis vaccine, adsorbed [facility] Work Phone: Payers Date Payer Category Payer Medicare [id number] 2024 Medicare [id number] 2023 Self-pay [id number] 2023 Private Health Insurance 2fe [id number] 2022 Medicare [id number] 2022 Medicare [id number] 2022 Unknown [id number] 2019 Private Health Insurance CIGNA C IGNA MEDICARE SUPPLEMENT [id number] 2019-Present [phone] [address] [place] [address] Indemnity [id number] 2017 Medicare MEDICARE MEDICAR E A AND B [id number] 2017-Present [phone] [address] [address] [place] [address] Medicare [id number] 1952 Unknown [id number] 2.16.840.1.120135.3.579.2 .627 1950 Unknown [id number] 2.16.840.1.516855.3.579.2 .627 1952 Unknown [id number] 2.16.840.1.533423.3.579.2 .627 1952 Unknown [id number] 2..840.1.552050.3.579.2 .62 1950 Unknown [id number] 2.840.1.562840.3.579.2 .627 1950 Unknown [id number] 2.840.1.076145.3.579.2 .627 Medicare [id number] Private Health Insurance [id number] Unknown [id number] Unknown [id number] Unknown [id number] 2.16.840.1.008904.3.579.2 .462 Unknown [id number] 2.16.840.1.738515.3.579.2 .462 Unknown [id number] 2.16.840.1.267429.3.579.2 .462 Unknown [id number] 2.16.840.1.385359.3.579.2 .462 Unknown [id number] 2.16.840.1.762904.3.579.2 .462 Unknown [id number] 2.16.840.1.512137.3.579.2 .462 Unknown [id number] 2.16.840.1.509593.3.579.2 .462 Unknown [id number] 2.16.840.1.378433.3.579.2 .462 Unknown [id number] 2.16.840.1.138290.3.579.2 .462 Unknown [id number] 2.16.840.1.963723.3.579.2 .462 Unknown [id number] 2.16.840.1.898376.3.579.2 .462 Unknown [id number] 2.16.840.1.786286.3.579.2 .462 Unknown [id number] 2.16.840.1.436845.3.579.2 .462 Unknown [id number] 2.16.840.1.519031.3.579.2 .462 Unknown [id number] 2.16.840.1.796782.3.579.2 .462 Unknown [id number] 2.16.840.1.708481.3.579.2 .462 Unknown [id number] 2.16.840.1.000015.3.579.2 .462 Unknown [id number] 2.16.840.1.180723.3.579.2 .462 Social History Date Type Detail Facility Start: 07-20-2023 End: 10-02-2024 Tobacco smoking status NMIS Never smoked tobacco [facility] Start: 12-07-2018 Alcohol intake Not Asked [facility] Start: 1950 Sex Assigned At Not on file [facility] Start: 03-02-2021 End: 06-02-2023 Tobacco smoking status [facility] Unknown if ever smoked [facility] Start: 10-10-2018 None [facility] Start: 10-10-2018 Alone [facility] Start: 10-16-2018 Non-smoker [facility] Start: 1950 Sex Assigned At Female [facility] Tobacco smoking status [facility] Start: 01-05-2024 Tobacco smoking status NHIS Ex-smoker (finding) [facility] Start: 10-18-2018 End: 08-23-2024 Sex Female (finding) [facility] NEGATED: Highlighted rowStart: 10-16-2019 End: 10-16-2019 Assertion Never smoker [facility] Work Phone: Medical Equipment Procedure Code Equipment Code Equipment Origin al Text Equipment Identifier Dates ORIF, fracture, humerus ([id number]) ()[id number] FDA Start: 02-26-2021 ORIF, fracture, humerus ([id number]) ()[id number] 1 FDA Start: 02-26-2021 ORIF, fracture, humerus ([id number]) ()[id number] 9 FDA Start: 02-26-2021 ORIF, fracture, humerus ([id number]) ()[id number] 4 FDA Start: 02-26-2021 ORIF, fracture, humerus ([id number]) ()[id number] 0 FDA Start: 02-26-2021 ORIF, fracture, humerus ([id number]) ()[id number] 3 FDA Start: 02-26-2021 ORIF, fracture, humerus ([id number]) ()[id number] 0 FDA Start: 02-26-2021 ORIF, fracture, humerus ([id number]) ()[id number] 7 FDA Start: 02-26-2021 ORIF, fracture, humerus ([id number]) ()[id number] 3 FDA Start: 02-26-2021 ORIF, fracture, humerus ([id number]) ()[id number] 5 FDA Start: 02-26-2021 ORIF, fracture, humerus ([id number]) ()[id number] 7 FDA Start: 02-26-2021 ORIF, fracture, humerus ([id number]) ()[id number] 0 FDA Start: 02-26-2021 Test blood sugar (s) twice daily and as needed for symptoms of high or low sugars. Dx: 250.02. Insulin: No Start: 05-06-2014 Comment on above: Test blood sugar(s) twice daily and as needed for symptoms of high or low sugars. Dx: 250.02. Insulin: No Femur Rodding Intramedullary Unknown 12/23/22 Unknown Unknown FDA Start: 12-23-2022 Femur Rodding Intramedullary Unknown 12/23/22 Unknown Unknown FDA Start: 12-23-2022 Femur Rodding Intramedullary Unknown 12/23/22 Unknown Unknown FDA Start: 12-23-2022 Femur Rodding Intramedullary Unknown 12/23/22 Unknown Unknown FDA Start: 12-23-2022 Femur Rodding Intramedullary Unknown 12/23/22 Unknown Unknown FDA Start: 12-23-2022 Femur Rodding Intramedullary Unknown 12/23/22 Unknown Unknown FDA Start: 12-23-2022 Femur Rodding Intramedullary Unknown 12/23/22 Unknown Unknown FDA Start: 12-23-2022 Femur Rodding Intramedullary Unknown 12/23/22 Unknown Unknown FDA Start: 12-23-2022 Femur Rodding Intramedullary Unknown 12/23/22 Unknown Unknown FDA Start: 12-23-2022 Femur Rodding Intramedullary Unknown 12/23/22 Unknown Unknown FDA Start: 12-23-2022 Femur Rodding Intramedullary Unknown 12/23/22 Unknown Unknown FDA Start: 12-23-2022 Femur Rodding Intramedullary Unknown 12/23/22 Unknown Unknown FDA Start: 12-23-2022 Femur Rodding Intramedullary Unknown 12/23/22 Unknown Unknown FDA Start: 12-23-2022 Femur Rodding Intramedullary Unknown 12/23/22 Unknown Unknown FDA Start: 12-23-2022 Femur Rodding Intramedullary Unknown 12/23/22 Unknown Unknown FDA Start: 12-23-2022 Femur Rodding Intramedullary Unknown 12/23/22 Unknown Unknown FDA Start: 12-23-2022 Femur Rodding Intramedullary Unknown 12/23/22 Unknown Unknown FDA Start: 12-23-2022 Femur Rodding Intramedullary Unknown 12/23/22 Unknown Unknown FDA Start: 12-23-2022 Femur Rodding Intramedullary Unknown 12/23/22 Unknown Unknown FDA Start: 12-23-2022 Femur Rodding Intramedullary Unknown 12/23/22 Unknown Unknown FDA Start: 12-23-2022 Femur Rodding Intramedullary Unknown 12/23/22 Unknown Unknown FDA Start: 12-23-2022 Goals Date Patient Goal Desired Activity /State Functional Status Date Assessment Result Facility 07-14-2023 Functional Status Nursing Man [facility] 07-14-2023 Functional Status Identified as high risk, Room check performed, Chair alert pad on [facility] 07-14-2023 Functional Status Man [facility] 07-14-2023 Functional Status Man [facility] 07-14-2023 Functional Status Supervised Man [facility] 07-14-2023 Functional Status Man [facility] 07-13-2023 Functional Status Man [facility] 07-13-2023 Functional Status 3pm-11pm Man [facility] 07-13-2023 Functional Status Man [facility] 07-12-2023 Functional Status Front wheeled walker [facility] 07-12-2023 Functional Status Supervised Man [facility] 07-12-2023 Functional Status Man [facility] 07-11-2023 Functional Status Man [facility] 07-10-2023 Functional Status Sensory Deficits None [facility] 07-10-2023 [facility] Status Man [facility] 07-10-2023 [facility] 12-28-2022 Functional Status Room check performed [facility] 12-27-2022 Functional Status Man [facility] 12-27-2022 Functional Status Man [facility] 12-27-2022 Functional Status Nurse Safety C hecks q2hrs Performed 3pm-7pm [facility] 12-27-2022 Functional Status Man [facility] 12-27-2022 Functional Status Man [facility] 12-26-2022 Functional Status Man [facility] 12-26-2022 Functional Status Man [facility] 12-26-2022 Functional Status Repositioned b ack, Refused to be turned [facility] 12-26-2022 Functional Status Man [facility] 12-26-2022 Functional Status Man [facility] 12-26-2022 Functional Status Roller walker [facility] 12-25-2022 Functional Status Bed Bath One assist [facility] 12-25-2022 Functional Status Man [facility] 12-25-2022 Functional Status Man [facility] 12-24-2022 Functional Status Activity Pema tance Greater than two assist [facility] 12-24-2022 Functional Status Two assist Man [facility] 12-24-2022 Functional Status Man [facility] 12-24-2022 Functional Status Total Man [facility] 12-23-2022 Functional Status ice on Man [facility] 12-23-2022 Functional Status Man [facility] 12-23-2022 Functional Status NPO Status Maintained [facility] 12-23-2022 [facility] Functional Status Standard Safet y ID band on, Call device within reach, Bed in low position, Wheels locked, Upper/Half-Length side-rails up, Bedside Cart Locked, Safety level maintained [facility] 09-15-2022 Functional status Chair [facility] Work Phone: 09-12-2022 Functional status Chair [facility] Work Phone: 09-11-2022 Functional status Ambulates [facility] Work Phone: 08-16-2022 Functional status Ambulates [facility] Work Phone: 08-13-2022 Functional status Chair [facility] Work Phone: 08-12-2022 Functional status Ambulates [facility] Work Phone: 07-15-2022 Functional status Ambulates [facility] Work Phone: 07-13-2022 Functional status Ambulates [facility] Work Phone: 08-22-2021 Functional status Ambulates [facility] Work Phone: Mental Status Date Assessment Result Facility 10-02-2024 Cognitive function [facility] 07-14-2023 Mental Status Orientation Oriented x 4 [facility] 07-14-2023 Mental Status [facility] 07-14-2023 Mental Status [facility] 07-14-2023 Mental Status [facility] 07-10-2023 Mental Status Orientation Not oriented to place, Not oriented to time, Not oriented to situation [facility] 07-10-2023 Mental Status [facility] 07-10-2023 Mental Status [facility] 04-07-2023 Cognitive function Voice/Name Del[facility] Work Phone: 12-28-2022 Mental Status Oriented x 4 [facility] 12-28-2022 Mental Status [facility] 12-27-2022 Mental Status [facility] 12-22-2022 Mental Status Orientation Oriented x 4 [facility] 09-15-2022 Cognitive function Voice/Name [facility] Work Phone: 09-12-2022 Cognitive function Voice/Name Del[facility]ambre [facility] Work Phone: 09-11-2022 Cognitive function [facility] Work Phone: 09-06-2022 Cognitive function Voice/Name [facility] Work Phone: 08-16-2022 Cognitive function Voice/Name [facility] Work Phone: 08-13-2022 Cognitive function Voice/Name [facility] Work Phone: 08-12-2022 Cognitive function Voice/Name [facility] Work Phone: 08-11-2022 Cognitive function Voice/Name [facility] Work Phone: 07-15-2022 Cognitive function Voice/Name [facility] Work Phone: 07-13-2022 Cognitive function Voice/Name [facility] Work Phone: 07-09-2022 Cognitive function Level Of Cons ciousness Awake;Alert;Appropriate [facility] Work Phone: 08-22-2021 Cognitive function Voice/Name [facility] Work Phone: 08-22-2021 Cognitive function Appropriate;Cooperativ e [facility] Work Phone: Clinical Notes 02-21-2009 to 10-23-2024 Note Date & Type Note Facility 10-23-2024 Hospital Discharg e instructions Patient Education 10/23/2024 11:21:09 Weakness, Btkx-oq-Heim Weakness Weakness is a lack of strength. You may feel weak all over your body (generalized), or you may feel weak in one part of your body (focal). There are many potential causes of weakness. Sometimes, the cause of your weakness may not be known. Some causes of weakness can be serious, so it is important to see your doctor. Follow these instructions at home: Activity Rest as needed. Try to get enough sleep. Most adults need 7 8 hours of sleep each night. Talk to your doctor about how much sleep you need each night. Do exercises, such as arm curls and leg raises, for 30 minutes at least 2 days a week or as told by your doctor. Think about working with a physical therapist or systems trainer to help you get stronger. General instructions Take edty-ljc-schyoog and prescription medicines only as told by your doctor. Eat a healthy, well-balanced diet. This includes: ?Proteins to build muscles, such as lean meats and fish. ?Fresh fruits and vegetables. ?Carbohydrates to boost energy, such as whole grains. Drink enough fluid to keep your pee (urine) pale yellow. Keep all follow-up visits as told by your doctor. This is important. Contact a doctor if: Your weakness does not get better or it gets worse. Your weakness affects your ability to: ?Think clearly. ?Do your normal daily activities. Get help right away if you: Have sudden weakness on one side of your face or body. Have chest pain. Have trouble breathing or shortness of breath. Have problems with your vision. Have trouble talking or swallowing. Have trouble standing or walking. Are light-headed. Pass out (lose consciousness). Summary Weakness is a lack of strength. You may feel weak all over your body or just in one part of your body. There are many potential causes of weakness. Sometimes, the cause of your weakness may not be known. Rest as needed, and try to get enough sleep. Most adults need 7 8 hours of sleep each night. Eat a healthy, well-balanced diet. This information is not intended to replace advice given to you by your health care provider. Make sure you discuss any questions you have with your health care provider. Document Released: 04/14/2009 Document Revised: 12/06/2018 Document Reviewed: 12/06/2018 [employer] Patient Education Pfenex. Follow Up Care 10/15/2024 17:02:42 With:Follow up with primary care provider Address:Unknown When: Unknown [facility] 10-23-2024 Note Discharge Instructions Thank you for allowing [facility] to assist you with your healthcare needs. The following is important discharge information regarding your hospital visit. Your Care Team [facility] Your Diagnosis (HFpEF) heart failure with preserved ejection fraction Acute kidney injury Bacteriuria CKD (chronic kidney disease), stage III DM type 2 (diabetes mellitus, type 2) Fall at home Hematoma of face HTN (hypertension) Iron deficiency anemia Knee effusion, right PAF (paroxysmal atrial fibrillation) Weakness What to do next Follow Up Appointments Follow Up with Follow up with primary care provider The Following Activity and Diet Have Been Ordered for You Transfer of Care Activity - Ordered -- As instructed by therapy, 10/23/24 10:49:00 EDT Transfer of Care Diet - Ordered -- Type of Diet: Regular Diet, 10/23/24 10:49:00 EDT The Following Equipment Has Been Ordered for You Discharge Home Equipment Transfer of Care Wound Care - Ordered -- Hydrogel C to left 2nd toe daily., 10/23/24 10:49:00 EDT The Following Treatments Have Been Ordered for You Discharge Labs No qualifying data available. Discharge Radiology No qualifying data available. Other Therapies Transfer of Care OT - Ordered -- Reason for therapy: weakness, 10/23/24 10:49:00 EDT Transfer of Care PT - Ordered -- Reason for therapy: Weakness, 10/23/24 10:49:00 EDT Post Acute Orders Transfer of Care Admission Level of Care - Ordered -- Level of Care SNF, 10/23/24 10:49:56 EDT Transfer of Care Code Status - Ordered -- Full Code, Constant Order Transfer of Care Orders Electronically Signed By - Ordered -- 10/23/24 10:49:00 EDTRUBY RACHEL L APRN-CON Transfer of Care Oxygen Therapy - Ordered -- Oxygen (CONTINUOUS), Mobile in the Home, Nasal Cannula, 2 liters per minute, 999 month(s), 10/23/24 10:49:00 EDT Transfer of Care Prognosis - Ordered -- Fair, Patient Aware: Yes Transfer of Care Rehab Potential - Ordered -- Rehab potential fair, 10/23/24 10:49:56 EDT Allergies Monopril pioglitazone Medications Please ask your primary doctor or pharmacist before taking any other medication not listed, including over the counter drugs, herbal medications, vitamins and or supplements as they may interact with your home medications. What How Much When Instructions Last Dose New fluticasone nasal (Flonase 50 mcg/ inh nasal spray) 1 spray(s) each nostril Two (2) times a day Changed amLODIPine 10 Milligram by mouth Once a day Changed atorvastatin (atorvastatin 10 mg oral tablet) 1 tab(s) by mouth Once a day Changed docusate-senna (Senexon-S 50 mg-8.6 mg oral tablet) 2 tab(s) by mouth Daily at bedtime as needed for Constipation Changed glimepiride (glimepiride 2 mg oral tablet) 1 tab(s) by mouth Every day Changed metoprolol (metoprolol tartrate 100 mg oral tablet) 1 tab(s) by mouth Two (2) times a day Unchanged amiodarone (amiodarone 200 mg oral tablet) 1 tab(s) by mouth Once a day Take with food. Unchanged apixaban (Eliquis 5 mg oral tablet) 1 tab(s) by mouth Two (2) times a day Unchanged ascorbic acid (Vitamin C 500 mg oral tablet) 1 tab(s) by mouth Once a day Unchanged cholecalciferol (Vitamin D3) 50 Microgram by mouth Every day Unchanged ferrous sulfate (IRON (ferrous sulfate 325 mg) 65 mg oral tablet) 1 tab(s) by mouth Once a day with a meal Unchanged furosemide (furosemide 20 mg oral tablet) 1 tab(s) by mouth Once a day Unchanged menthol topical (Biofreeze 4% topical gel) See instructions Topical BID to knees, As needed for as needed for pain Unchanged metFORMIN (metFORMIN 1000 mg oral tablet (IR)) 1 tab(s) by mouth Two (2) times a day Unchanged oxybutynin (oxybutynin 15 mg/ 24 hr oral tablet, extended release) 1 tab(s) by mouth Two (2) times a day Unchanged sertraline (sertraline 100 mg oral tablet) 1 tab(s) by mouth Once a day Unchanged sodium chloride nasal (Tumtum Saline 0.65% nasal gel) See instructions one application in both nostrils q 8 hours prn for dry nares What How Much When Comments Stop Taking acetaminophen (Tylenol 325 mg oral capsule) 650 Milligram by mouth Every 4 hours as needed for Pain, scale 1-3 Stop Taking bisacodyl (bisacodyl 10 mg rectal suppository) 1 suppository(ies) in the rectum Once a day as needed for as needed for constipation Stop Taking calcium carbonate (calcium carbonate 500 mg (200 mg elemental calcium) oral tablet, chewable) 1 tab(s) Chewed Every 8 hours as needed for as needed for dyspepsia Stop Taking docusate (Colace 100 mg oral capsule) 1 cap by mouth Two (2) times a day as needed for Constipation Stop Taking dofetilide (Tikosyn 250 mcg oral capsule) 1 cap by mouth Every 12 hours Stop Taking glucagon (glucagon 1 mg injection) 1 Milligram Subcutaneous Once as needed for Low blood sugar Stop Taking guaiFENesin (guaiFENesin 100 mg/ 5 mL oral liquid) 10 Milliliter by mouth Every 4 hours as needed for Cough Stop Taking magnesium hydroxide (Milk of Magnesia 8% oral suspension) 30 Milliliter by mouth Once a day as needed for as needed for constipation Stop Taking multivitamin (Multivitamin) 1 tab(s) by mouth Once a day Stop Taking polyethylene glycol 3350 (MiraLax oral powder for reconstitution) 17 gram(s) by mouth Once a day as needed for Constipation Stop Taking sodium biphosphate-sodium phosphate (sodium biphosphate-sodium phosphate 19 g-7 g rectal enema) See instructions Rectal Once, As needed for as needed for constipation Stop Taking sodium biphosphate-sodium phosphate (sodium biphosphate-sodium phosphate 19 g-7 g rectal enema) See instructions mL Rectal Once, As needed for as needed for constipation Please take this list to your next doctor s visit. Bring all medications you take, including over the counter medications, herbals and other supplements with you to your doctor s visit. Patients and families are reminded to discard old lists and to update any records with all medication providers or retail pharmacies. Education Materials Weakness Weakness is a lack of strength. You may feel weak all over your body (generalized), or you may feel weak in one part of your body (focal). There are many potential causes of weakness. Sometimes, the cause of your weakness may not be known. Some causes of weakness can be serious, so it is important to see your doctor. Follow these instructions at home: Activity Rest as needed. Try to get enough sleep. Most adults need 7 8 hours of sleep each night. Talk to your doctor about how much sleep you need each night. Do exercises, such as arm curls and leg raises, for 30 minutes at least 2 days a week or as told by your doctor. Think about working with a physical therapist or systems trainer to help you get stronger. General instructions Take psxq-dvi-gjvagiy and prescription medicines only as told by your doctor. Eat a healthy, well-balanced diet. This includes: ? Proteins to build muscles, such as lean meats and fish. ? Fresh fruits and vegetables. ? Carbohydrates to boost energy, such as whole grains. Drink enough fluid to keep your pee (urine) pale yellow. Keep all follow-up visits as told by your doctor. This is important. Contact a doctor if: Your weakness does not get better or it gets worse. Your weakness affects your ability to: ? Think clearly. ? Do your normal daily activities. Get help right away if you: Have sudden weakness on one side of your face or body. Have chest pain. Have trouble breathing or shortness of breath. Have problems with your vision. Have trouble talking or swallowing. Have trouble standing or walking. Are light-headed. Pass out (lose consciousness). Summary Weakness is a lack of strength. You may feel weak all over your body or just in one part of your body. There are many potential causes of weakness. Sometimes, the cause of your weakness may not be known. Rest as needed, and try to get enough sleep. Most adults need 7 8 hours of sleep each night. Eat a healthy, well-balanced diet. This information is not intended to replace advice given to you by your health care provider. Make sure you discuss any questions you have with your health care provider. Document Released: 04/14/2009 Document Revised: 12/06/2018 Document Reviewed: 12/06/2018 [employer] Patient Education 2020 [employer]. Additional Information VACCINATE! IT SAVES LIVES! Members of the community who have not yet received the COVID-19 vaccine and would like to receive it can visit one of [facility] vaccine clinics. There are many vaccine clinic locations within the [facility]. For locations and available times, please visit [email or web address].o hio.gov/. It is important to note that some COVID mobile vaccine clinics are held outdoors and may be canceled in rainy or stormy conditions. To learn more about pediatric vaccinations (ages 5-11), we invite you to visit the [facility] webpage. [email or web address] To learn more about the COVID-19 vaccine, we invite you to visit the CDC website for a list of frequently asked questions.https://www.cdc.gov/co ronavirus/2019-ncov/vaccines/faq .html [employer] Patient Portal Access Instructions: Stay connected with your healthcare team and access your personal medical information anytime with the [employer] Patient Portal. Please follow the directions below to create your [employer] account: 1.Access the email account you provided upon registration to the hospital/physician office.2.Look for an invitation email from [facility].3.Open the email and access the invitation link: Accept Invitation to [employer].4.Fill in the required cunha to create your account. To access your account, visit [employer]. Click the blue button labeled Access Patient Portal and then log in with the username and password that you created in the steps above. You will be able to view your test results, lab results, a summary of your visits, upcoming appointments and more. There is also a convenient messaging option where you can send secure messages to your provider. In addition, you will have the ability to download any documents or summaries to your computer and/or send the information securely to a physician. Remember that your healthcare information is confidential, so carefully consider who you will allow to register on the [facility] Patient Portal for access to your information. You can also access the [facility] on the [employer]. Simply click on Patient Portal and then log into your account. If you would like to receive a full copy of your medical records, please contact the [facility] Medical Records Department by calling [phone], Tuesday through Tuesday between 8 a.m. and 4:30 p.m. HOW TO SAFELY DISPOSE OF PRESCRIPTION MEDICATIONS Please use one of the following methods to safely dispose of your unused medications. 1.Use a drug disposal kit: the drug disposal pouch allows you to safely discard your old and unused drugs. Ask your nurse to give you one when you are discharged.2.Visit a local take-back location: Many local pharmacies and police departments have programs that collect old and unwanted prescription drugs. Call your local pharmacy or go to http://Kms[employer]/6U6Wb6x to find one close to you.3.Make use of household items: Use cat litter or old coffee grounds to dispose medications if other options are not available. Mix your drugs with these household products, seal them in an airtight container and throw it into the garbage. Call [facility]: [phone] to be sure your drugs can be disposed of in this way. Some medicines may require a different approach.4.Never flush your medications down the toilet. IF YOU HAVE BEEN PRESCRIBED AN OPIOID FOR PAIN If you have been prescribed an opioid (such as hydrocodone, oxycodone or morphine), it is critical to understand the possible side effects and risks of opioid pain medications. Even when taken as directed, opioids can have several side effects including: Tolerance, meaning you might need to take more of a medication for the same pain relief. Nausea, vomiting and/or constipation. Sleepiness, dizziness, dry mouth, confusion, depression or itching. Physical dependence, meaning you have withdrawal symptoms when a medication is stopped, can develop within a few days. KNOW YOUR RESPONSIBILITIES It is important to know exactly how much and how often to take the opioid pain medications you are prescribed. Never take opioids in higher amounts or more often than prescribed. Do not combine opioids with alcohol or other drugs that cause drowsiness, such as benzodiazepines, also known as benzos, including diazepam and alprazolam, muscle relaxants or sleep aids. Never sell or share prescription opioids. This is illegal. Store opioids in a secure place and out of reach of others (including children, family, friends and visitors). The last page of this document has been signed and retained as a CHART COPY. Signatures Patient Education Materials Weakness, [id number] Medication Leaflets My discharge plan and instructions have been reviewed and explained to me and I,JOSELINE ELLIS understand my current condition and have read and understand these discharge instructions. I have received a written copy of the plan/instructions. If I have questions, I am aware that I should contact my doctor. 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 No acute issues. States that knee pain is slowly improving. Patient has requested that sliding scale insulin be discontinued. She only checks her blood sugar weekly at home. Objective Vitals and Measurements T: 36.6 C (Oral) TMIN: 36.4 C (Oral) TMAX: 36.7 C (Oral) HR: 62 (Monitored) RR: 20 BP: 115/73 SpO2: 93% WT: 81.6 kg Intake and Output 7AM Yesterday to 7AM Today Intake and Output (Last 24 hours) Intake Oral Intake 590.00 Output Stool Count 0.00 Urine Count 4.00 Diaper Count 2.00 Emesis Count 0.00 Total Summary Total Intake 590.00 Total Output 0.00 Fluid Balance 590.00 Physical Exam GEN: Appears chronically ill CHEST: Normal S1 and S2. Rhythm is regular. Clear to auscultation, without rales, rhonchi, wheezing. ABD: Positive bowel sounds x 4 quads. Soft, nondistended, nontender. EXT: No significant deformity or joint abnormality. Peripheral pulses intact. NEURO: Sensation grossly intact SKIN: Extensive facial bruising from previous fall, improving. Chronic wound on right toe. PSYCH: The mental examination revealed the patient was alert and oriented x 4, forgetful Weight Current Weight Dosing Weight: 78.7 kg (10/15/24) Current Weight: 81.6 kg (10/22/24) Current Weight: 80 kg (10/21/24) Medications Medications (21) Active Scheduled: (10) acetaminophen 500 mg Tablet 1,000 mg 2 tab(s), Oral, TID amiodarone 200 mg tablet 200 mg 1 tab(s), Oral, qDay amLODIPine 5 mg tablet 10 mg 2 tab(s), Oral, qDay apixaban 5 mg tablet 5 mg 1 tab(s), Oral, BID atorvastatin 10 mg tablet 10 mg 1 tab(s), Oral, qDay fluticasone nasal 0.05 mg/inh [place] 50 mcg 1 spray(s), Nostril, each, BID glimepiride 2 mg Tablet 2 mg 1 tab(s), Oral, Daily metoprolol tartrate 50 mg tablet 100 mg 2 tab(s), Oral, BID oxybutynin 5 mg ER tablet 15 mg 3 tab(s), Oral, BID sertraline 50 mg tablet 100 mg 2 tab(s), Oral, qDay Continuous: (0) PRN: (11) acetaminophen 325 mg Tablet 650 mg 2 tab(s), Oral, q4h acetaminophen 325 mg Tablet 650 mg 2 tab(s), Oral, q4h acetaminophen-HYDROcodone 325-5 mg tablet 1 tab(s), Oral, q4h albuterol - ipratropium 2.5 mg-0.5 mg/3 mL Inhal Laquita UD 3 mL, Inhalation, q4hRT benzonatate 100 mg Capsule 100 mg 1 cap(s), Oral, TID calcium carbonate 500 mg Chewable 500 mg 1 tab(s), Chewed, TID guaifenesin 100 mg/5 mL Liquid 120 mL 200 mg 10 mL, Oral, q4h guaifenesin 600 mg ER 600 mg 1 tab(s), Oral, BID melatonin 3 mg tablet 6 mg 2 tab(s), Oral, qHS menthol (Biofreeze) gel packet 1 alfonzo, Topical, TID ondansetron 2 mg/ 1 mL 2 mL INJ 4 mg 2 mL, IV Push, q4h Lab Results 10/22 05:38 Glucose Level: 119 H Sodium Level: 142 Potassium Level: 4.5 BUN: 27 H Creatinine Lvl (s): 1.07 H 10/21 06:13 Glucose Level: 98 Sodium Level: 140 Potassium Level: 4.4 BUN: 24 H Creatinine Lvl (s): 1.06 H Assessment/Plan 1. Bacteriuria 2. Weakness 3. Fall at home 4. PAF (paroxysmal atrial fibrillation) 5. (HFpEF) heart failure with preserved ejection fraction 6. CKD (chronic kidney disease), stage III 7. Iron deficiency anemia 8. Knee effusion, right Bacteriuria Urine culture showed possible contamination. Patient was started on Macrobid. She received 3 days of treatment. Patient is asymptomatic. Weakness with falls at home awaiting pre-CERT. Patient was originally accepted at [facility]. They started pre-CERT and then determined that their facility was out of network. Patient has been accepted and pre-CERT has been started. Social work reached out to facility to inquire about expedited pre-CERT. Paroxysmal atrial fibrillation rate controlled. Continue metoprolol and apixaban. HFpEF not in acute exacerbation CKD stage III Creatinine on admission was 1.32 with a GFR of 43. Baseline creatinine 1.2 with an EGFR of 46. Patient is near baseline. Iron deficiency anemia patient does take iron at home. Received Venofer 300 mg IV x 2 doses. Right knee effusion small. She also has soft tissue swelling. Use Alberto bandage for compression. Continue Tylenol 1000 mg p.o. 3 times daily. Knee pain is improving. Right second toe wound patient follows with [facility]. She gets hydrogel C applied to her right second toe daily. She follows with the wound center weekly. DVT prophylaxis: Apixaban Code Status: Full code Plan of care discussed with patient. All questions answered. Patient verbalizes understanding is agreeable to plan of care. This dictation was performed using voice recognition software and may include grammatical and/or spelling errors. Anticipated Date of Discharge Medically optimized for discharge. Awaiting insurance precert Time Spent 25 minutes Digitally Signed by AZ BELTRAN on 10/22/2024 02:10 PM [facility] 10-21-2024 Note Date of Service 10/21/2024 Chief Complaint Fall Subjective Remains stable. No acute issues. States that knee pain is slowly improving. Patient was originally accepted at [facility]. They started pre-CERT and then determined that their facility was out of network. Referrals have been sent to other facilities late Tuesday afternoon. Objective Vitals and Measurements T: 36.5 C (Oral) TMIN: 36.3 C (Oral) TMAX: 36.6 C (Oral) HR: 90 (Apical) RR: 18 BP: 125/92 SpO2: 91% WT: 80 kg Intake and Output 7AM Yesterday to 7AM Today Intake and Output (Last 24 hours) Intake Oral Intake 620.00 Output Stool Count 0.00 Urine Count 4.00 Diaper Count 2.00 Emesis Count 0.00 Total Summary Total Intake 620.00 Total Output 0.00 Fluid Balance 620.00 Physical Exam GEN: Appears chronically ill CHEST: Normal S1 and S2. Rhythm is regular. Clear to auscultation, without rales, rhonchi, wheezing. ABD: Positive bowel sounds x 4 quads. Soft, nondistended, nontender. EXT: No significant deformity or joint abnormality. Peripheral pulses intact. NEURO: Sensation grossly intact SKIN: Extensive facial bruising from previous fall. PSYCH: The mental examination revealed the patient was alert and oriented x 4 Weight Current Weight Dosing Weight: 78.7 kg (10/15/24) Current Weight: 80 kg (10/21/24) Current Weight: 80.4 kg (10/20/24) Medications Medications (22) Active Scheduled: (10) acetaminophen 500 mg Tablet 1,000 mg 2 tab(s), Oral, TID amiodarone 200 mg tablet 200 mg 1 tab(s), Oral, qDay amLODIPine 5 mg tablet 10 mg 2 tab(s), Oral, qDay apixaban 5 mg tablet 5 mg 1 tab(s), Oral, BID atorvastatin 10 mg tablet 10 mg 1 tab(s), Oral, qDay glimepiride 2 mg Tablet 2 mg 1 tab(s), Oral, Daily insulin lispro 100 units/mL Soln COA (3 mL) Give 0-5 units/dose, Subcutaneous, TIDAC metoprolol tartrate 50 mg tablet 100 mg 2 tab(s), Oral, BID oxybutynin 5 mg ER tablet 15 mg 3 tab(s), Oral, BID sertraline 50 mg tablet 100 mg 2 tab(s), Oral, qDay Continuous: (0) PRN: (12) acetaminophen 325 mg Tablet 650 mg 2 tab(s), Oral, q4h acetaminophen 325 mg Tablet 650 mg 2 tab(s), Oral, q4h acetaminophen-HYDROcodone 325-5 mg tablet 1 tab(s), Oral, q4h albuterol - ipratropium 2.5 mg-0.5 mg/3 mL Inhal Laquita UD 3 mL, Inhalation, q4hRT benzonatate 100 mg Capsule 100 mg 1 cap(s), Oral, TID calcium carbonate 500 mg Chewable 500 mg 1 tab(s), Chewed, TID guaifenesin 100 mg/5 mL Liquid 120 mL 200 mg 10 mL, Oral, q4h guaifenesin 600 mg ER 600 mg 1 tab(s), Oral, BID melatonin 3 mg tablet 6 mg 2 tab(s), Oral, qHS menthol (Biofreeze) gel packet 1 alfonzo, Topical, TID ondansetron 2 mg/ 1 mL 2 mL INJ 4 mg 2 mL, IV Push, q4h oxycodone 5 mg tablet (immediate release) 2.5 mg 0.5 tab(s), Oral, TID Lab Results 10/21 06:13 Glucose Level: 98 Sodium Level: 140 Potassium Level: 4.4 BUN: 24 H Creatinine Lvl (s): 1.06 H 0607 05:00 Glucose Level: 94 Sodium Level: 140 Potassium Level: 4.5 BUN: 21 H Creatinine Lvl (s): 1.02 H Assessment/Plan 1. Bacteriuria 2. Weakness 3. Fall at home 4. PAF (paroxysmal atrial fibrillation) 5. (HFpEF) heart failure with preserved ejection fraction 6. CKD (chronic kidney disease), stage III 7. Iron deficiency anemia 8. Knee effusion, right Bacteriuria Urine culture showed possible contamination. Patient was started on Macrobid. She received 3 days of treatment. Patient is asymptomatic. Weakness with falls at home awaiting pre-CERT. Patient was originally accepted at [facility]. They started pre-CERT and then determined that their facility was out of network. Referrals have been sent to other facilities late Tuesday afternoon. Paroxysmal atrial fibrillation rate controlled. Continue metoprolol and apixaban. HFpEF not in acute exacerbation CKD stage III Creatinine on admission was 1.32 with a GFR of 43. Baseline creatinine 1.2 with an EGFR of 46. Patient is near baseline. Iron deficiency anemia patient does take iron at home. Received Venofer 300 mg IV x 2 doses. Right knee effusion small. She also has soft tissue swelling. Use Alberto bandage for compression. Continue Tylenol 1000 mg p.o. 3 times daily. Continue oxycodone 2.5 mg 3 times daily as needed x 3 days as pain is limiting her ability to participate in therapy. DVT prophylaxis: Apixaban Code Status: Full code Plan of care discussed with patient. All questions answered. Patient verbalizes understanding is agreeable to plan of care. This dictation was performed using voice recognition software and may include grammatical and/or spelling errors. Anticipated Date of Discharge Medically optimized for discharge. Awaiting insurance precert Time Spent 26 minutes Digitally Signed by AZ BELTRAN on 10/21/2024 11:26 AM [facility] 10-20-2024 Note Date of Service 10/20/2024 Chief Complaint Weakness, falls Subjective 74-year-old female with past medical history significant for HTN, paroxysmal atrial fibrillation anticoagulated with apixaban, HFpEF, type 2 diabetes mellitus, LEIGH ANN on CPAP, CKD stage III. Patient presented to [facility] emergency department 10/15/2024 with weakness, falls, inability to care for herself. She had originally fallen on 10/12 and was noted to have comminuted, mildly impacted nasal bone fractures. She declined admission and was discharged with a referral to ENT. In the emergency department she was hemodynamically stable with adequate oxygenation on room air. Heart rate was variable from 103-130. Potassium level was 5.4 and creatinine 1.32. She was given fluids and Kayexalate as well as a dose of Lopressor IV and subsequently admitted. Renal function improved with IV fluids. Therapy consulted with recommendation for SNF. Patient has a history of coli ESBL in her urine. Urinalysis was positive for nitrates, leukocyte esterase, 3+ bacteria. She was started on Macrobid. Urine culture resulted showing multiple bacteria present suggesting contamination. Patient's iron was low with saturation of 15%. She was ordered Venofer 300 mg IV x 2 doses. She was complaining of right knee pain that was limiting her ability to participate in therapy. X-ray reviewed from 10/12 that showed soft tissue swelling and small effusion. 10/19 she was started on scheduled Tylenol 1000 mg 3 times daily. Additionally she was given oxycodone 2.5 mg 3 times daily as needed x 3 days. No new complaints today. Awaiting placement. Objective Vitals and Measurements T: 36.4 C (Oral) TMIN: 36.4 C (Oral) TMAX: 36.7 C (Oral) HR: 94 (Apical) RR: 18 BP: 146/85 SpO2: 98% WT: 80.4 kg Intake and Output 7AM Yesterday to 7AM Today Intake and Output (Last 24 hours) Intake Oral Intake 660.00 Output Stool Count 1.00 Urine Count 1.00 Diaper Count 3.00 Total Summary Total Intake 660.00 Total Output 0.00 Fluid Balance 660.00 Physical Exam GEN: Appears chronically ill CHEST: Normal S1 and S2. Rhythm is regular. Clear to auscultation, without rales, rhonchi, wheezing. ABD: Positive bowel sounds x 4 quads. Soft, nondistended, nontender. EXT: No significant deformity or joint abnormality. Peripheral pulses intact. NEURO: Sensation grossly intact SKIN: Extensive facial bruising from previous fall. PSYCH: The mental examination revealed the patient was alert and oriented x 4 Weight Current Weight Dosing Weight: 78.7 kg (10/15/24) Current Weight: 80.4 kg (10/20/24) Current Weight: 81.1 kg (10/19/24) Medications Medications (22) Active Scheduled: (10) acetaminophen 500 mg Tablet 1,000 mg 2 tab(s), Oral, TID amiodarone 200 mg tablet 200 mg 1 tab(s), Oral, qDay amLODIPine 5 mg tablet 10 mg 2 tab(s), Oral, qDay apixaban 5 mg tablet 5 mg 1 tab(s), Oral, BID atorvastatin 10 mg tablet 10 mg 1 tab(s), Oral, qDay glimepiride 2 mg Tablet 2 mg 1 tab(s), Oral, Daily insulin lispro 100 units/mL Soln COA (3 mL) Give 0-5 units/dose, Subcutaneous, TIDAC metoprolol tartrate 50 mg tablet 100 mg 2 tab(s), Oral, BID oxybutynin 5 mg ER tablet 15 mg 3 tab(s), Oral, BID sertraline 50 mg tablet 100 mg 2 tab(s), Oral, qDay Continuous: (0) PRN: (12) acetaminophen 325 mg Tablet 650 mg 2 tab(s), Oral, q4h acetaminophen 325 mg Tablet 650 mg 2 tab(s), Oral, q4h acetaminophen-HYDROcodone 325-5 mg tablet 1 tab(s), Oral, q4h albuterol - ipratropium 2.5 mg-0.5 mg/3 mL Inhal Laquita UD 3 mL, Inhalation, q4hRT benzonatate 100 mg Capsule 100 mg 1 cap(s), Oral, TID calcium carbonate 500 mg Chewable 500 mg 1 tab(s), Chewed, TID guaifenesin 100 mg/5 mL Liquid 120 mL 200 mg 10 mL, Oral, q4h guaifenesin 600 mg ER 600 mg 1 tab(s), Oral, BID melatonin 3 mg tablet 6 mg 2 tab(s), Oral, qHS menthol (Biofreeze) gel packet 1 alfonzo, Topical, TID ondansetron 2 mg/ 1 mL 2 mL INJ 4 mg 2 mL, IV Push, q4h oxycodone 5 mg tablet (immediate release) 2.5 mg 0.5 tab(s), Oral, TID Lab Results 10/20 05:00 Glucose Level: 94 Sodium Level: 140 Potassium Level: 4.5 BUN: 21 H Creatinine Lvl (s): 1.02 H 10/19 05:24 Glucose Level: 67 L Sodium Level: 142 Potassium Level: 4.0 BUN: 25 H Creatinine Lvl (s): 1.03 H Assessment/Plan 1. Bacteriuria 2. Weakness 3. Fall at home 4. PAF (paroxysmal atrial fibrillation) 5. (HFpEF) heart failure with preserved ejection fraction 6. CKD (chronic kidney disease), stage III 7. Iron deficiency anemia 8. Knee effusion, right Bacteriuria Urine culture showed possible contamination. Patient was started on Macrobid. She received 3 days of treatment. Patient is asymptomatic. Weakness with falls at home awaiting pre-CERT. Patient was originally accepted at [facility]. They started pre-CERT and then determined that their facility was out of network. Referrals have been sent to other facilities late Tuesday afternoon. Paroxysmal atrial fibrillation rate controlled. Continue metoprolol and apixaban. HFpEF not in acute exacerbation CKD stage III Creatinine on admission was 1.32 with a GFR of 43. Baseline creatinine 1.2 with an EGFR of 46. Patient is near baseline. Iron deficiency anemia patient does take iron at home. Received Venofer 300 mg IV x 2 doses. Right knee effusion small. She also has soft tissue swelling. Use Alberto bandage for compression. Continue Tylenol 1000 mg p.o. 3 times daily. Continue oxycodone 2.5 mg 3 times daily as needed x 3 days as pain is limiting her ability to participate in therapy. DVT prophylaxis: Apixaban Code Status: Full code Plan of care discussed with patient. All questions answered. Patient verbalizes understanding is agreeable to plan of care. This dictation was performed using voice recognition software and may include grammatical and/or spelling errors. Anticipated Date of Discharge Medically optimized for discharge. Awaiting insurance precert Time Spent 35 minutes Digitally Signed by AZ BELTRAN on 10/20/2024 10:24 AM [facility] 10-18-2024 Pastoral care Progress note Pastoral Care Note Entered On: 10/18/2024 9:39 EDT Performed On: 10/18/2024 9:35 EDT by Jose Durbin Pastoral Care Type of Pastoral Visit : Initial visit Spiritual Care Visit Initiated by : Camera Maker Spiritual Care Reason for Visit : General Spiritual Assessment : Faithful, Spiritual, not Episcopal Spiritual Care Emotional Assessment : Sad, Pessimistic, Feeling Helpless Spiritual Care Intervention : Active listening, Compassion/Empathy, Explore Emotional Needs, Identify Possibilities Spiritual Outcomes : Embraces Present Moment Spiritual Plan of Care : No Further Action Pastoral Care Comments : patient is agreeable for a visit today; pt says that she just wants to go home; pt acknowledges that she is alone with exception of a young family friend that lives with her; otherwise pt has lost and four dogs; pt refers to just wish I had one dog left; pt is connected to [employer] and was active in a breakfast group however she has given up driving now so faces more isolation; explored what might be options and other avenues for support; pt declined further interventions Pastoral Care Visit Length : 15 minute(s) Jose Durbin - 10/18/2024 9:35 EDT Digitally Signed by Jose Durbin on 10/18/2024 09:35 AM [facility] 10-18-2024 Note . MICRO - Microbiology PROCEDURE: Urine Culture [*1] SOURCE: Urine, Clean Catch BODY SITE: COLLECTED DATE/TIME: 10/16/2024 13:35 EDT RECEIVED DATE/TIME: 10/16/2024 18:37 EDT START DATE/TIME: 10/16/2024 18:37 EDT FREE TEXT SOURCE: FINAL REPORTS Final Report [] Verified Date/Time/Personnel: 10/18/2024 07:09 EDT >100,000 cfu/ml Multiple bacterial morphotypes present. Probable Contamination. Suggest recollection if clinically indicated. PRELIMINARY REPORTS Preliminary Report [] Verified Date/Time/Personnel: 10/17/2024 08:04 EDT Culture results pending. Preliminary Report [] Verified Date/Time/Personnel: 10/16/2024 19:59 EDT Specimen received in lab. Performing Locations *1: This test was performed at: [facility], [address] [place] [address], [id number] , [facility] 10-16-2024 Evaluation + Plan note Extrac luis alfredo from: Title:History and Physical Author:YAS STEVENSON APRN-PANTOGRAPH WATCHER Date:10/16/24 1. Acute kidney injury Acute, mild. Previous GFR was 53 in 06/2023 but down to 43 on admission and 48 this am. Continue NS @ 75cc/hr x 24 hours. Repeat BMP in the am. 2. Weakness New onset recently with 2 falls at home. Consult placed to PT and OT to evaluate and treat. Obtain urine to rule out UTI as contributing factor. 3. Hematoma of face Acute, new onset from fall on 10/12. Was seen in ED and diagnosed with nasal bone fractures. Patient on a blood thinner. 4. DM type 2 (diabetes mellitus, type 2) Chronic. ADA diet. Blood glucose goal of 180 or less and avoid hypoglycemia. 5. PAF (paroxysmal atrial fibrillation) Chronic. Continue eliquis and metoprolol as at home. 6. HTN (hypertension) Chronic. Continue current antihypertensives. SBP goal of 140 or less. DVT prophylaxis with eliquis. Code status: Full Code. Labs, diagnostic test and progress notes reviewed as noted in HPI. Plan of care discussed with patient. All questions answered. Patient verbalizes understanding and is agreeable with plan of care. This case was discussed with collaborating physician, Dr. Rosario Pena. 73 minutes spent reviewing past diagnostic tests, reviewing lab results, vital sign trends, medical history, reviewing medications and ordering home medications, examining patient, discussed plan of care with care team, collaborating with physician, and documenting in chart. Future Scheduled Tests Laboratory* A1C Hemoglobin 10/22/23 * Complete Blood Count 10/22/23 * Lipid Profile 10/22/23 * Complete Metabolic Panel 10/22/23 [facility] [place] 06-03-2025 Pastoral care Progress note Pastoral Care Note Entered On: 10/16/2024 8:53 EDT Performed On: 10/16/2024 8:52 EDT by Jose Durbin Pastoral Care Type of Pastoral Visit : Initial visit Spiritual Care Visit Initiated by : Camera Maker Spiritual Care Reason for Visit : General Spiritual Assessment : Other: Spiritual Care Emotional Assessment : Other: Spiritual Plan of Care : Spiritual Care Declined, No Further Action Pastoral Care Comments : patient is in isolation room but is offered a visit and support from this manager customs if she desires it; pt responds that she is okay and declines a visit at this time Pastoral Care Visit Length : 5 minute(s) Jose Durbin - 10/16/2024 8:52 EDT Digitally Signed by Jose Durbin on 10/16/2024 08:52 AM [facility] [place]06-03-2025 Note Date of Service 10/16/2024 Chief Complaint sent by visiting nurse for 3 stay to be admitted to [facility] due to weakness and inability to care for herself at home. Pt has had frequent falls lately. History of Present Illness Patient is a 74-year-old female, who follows with Dr. Bernie Reagan with a past medical history significant for LEIGH ANN on CPAP, hypertension, paroxysmal atrial fibrillation, HFpEF and type 2 diabetesmellitus, presented to [facility] emergency department with the chief complaint of weakness and falls. Patient had a mechanical fall on 10/12/2024 and was diagnosed with nasal bone fractures by the ED. ED recommended admission for observation but patient declined. Her home health nurse saw her yesterday in the home and had concerns that patient was not taking care of herself and nottaking her medications. She had one other fall at home with no other injury. The home health nurse referred patient to ED for placement. Patient denies any dizziness or lightheadedness contributing to her falls. She further denies any fever, chills, cough, shortness of breath, chest pain, abdominalpain, nausea or dysuria. In the emergency department, CBC was remarkable for hemoglobin 11.6. BMP significant for glucose 219, potassium 5.4, BUN 33 and creatinine 1.32. Troponin negative. Patient was administered 1 liter ofNS, 15 grams kayexalate PO, 1 tab Upper Tract PO and 5 mg lopressor IV in the ED. The case was discussed with the ED physician who recommended admission for further evaluation. Patient was transferred to medical surgical unit. We will give one dose of Lokelma 10 mg PO on admission. We will obtain urine for urinalysis and C&S if indicated. Consult placed to PT and OT to evaluate and treat. Repeat CBC and BMP in the am. Patient seen and evaluated this morning while resting in bed. She states that she feels she is doing well in the home and has been able to take care of herself. Patient states that her passedaway 8 years ago and it has been really hard on her. She and her had 4 dogs together and all have now . She reports that she has friends but feels that they are more hovering around her at this point than helping. Patient advised that we are here to help her. She is aware that we will have therapy see her to see how she is moving. She will be involved in the discussion as far as whether she needs to go somewhere for a skilled stay for strengthening. Physical exam unremarkable except for huge hematoma covering left side of patient's face and slightly into the right. Patientwith a strong odor of urine so we will need to get a urine specimen as soon as possible. She could have a UTI that is contributing to her self-care deficit and falls. She is agreeable with current plan of care. All questions answered. Review of Systems Review of Systems: Reviewed in detail, including general health, HEENT, cardiovascular, respiratory, gastrointestinal, genitourinary, endocrine, musculoskeletal, neurologic, vascular, skin, and psychiatric. All are negative except for those listed in the History of Present Illness. Physical Exam Vitals and Measurements T: 36.5 C (Oral) TMIN: 36.4 C (Oral) TMAX: 36.5 C (Oral) HR: 77 (Apical) RR: 18 BP: 170/102 SpO2: 95% HT: 155 cm WT: 76.5 kg BMI: 32.76 Weight Current Weight Dosing Weight: 78.7 kg (10/15/24) Current Weight: 76.5 kg (10/16/24) Current Weight: 78.7 kg (10/15/24) General: No acute distress. Patient is alert, chronically ill-appearing. Skin: No rash. Skin is warm, dry and intact. HEENT: Head is normocephalic, traumatic. Large purple hematoma covering left side of face, slightlyinto right side. Nose appears edematous. Pupils are equal, round and reactive. Neck: Supple. No lymphadenopathy, thyromegaly. Lungs: Bilaterally clear but diminished without crepitation or wheeze. Unlabored. Heart: Heart is irregular rhythm. No murmurs, gallops or rubs. Abdomen: Abdomen is soft, nontender. Bowels sounds present in all quadrants. Extremities: No clubbing, cyanosis, or edema. Peripheral pulses palpable. No calf tenderness. Multiple scabbed wounds on bilateral legs. Neurological: Patient is awake and alert to person, place and time. Following simple commands, moving all extremities. Lab Results 10/16 05:35 WBC: 7.0 Hgb: 10.5 L Hct: 31.8 L Platelet: 221 Neutrophil %: 70.8 Glucose Level: 102 Sodium Level: 141 Potassium Level: 4.5 BUN: 34 H Creatinine Lvl (s): 1.25 H 10/15 22:54 Potassium Level: 5.0 10/15 17:19 WBC: 9.0 Hgb: 11.6 L Hct: 35.1 Platelet: 255 Neutrophil %: 80.0 H Glucose Level: 219 H Sodium Level: 138 Potassium Level: 5.4 H BUN: 33 H Creatinine Lvl (s): 1.32 H Assessment/Plan 1. Acute kidney injury Acute, mild. Previous GFR was 53 in 06/2023 but down to 43 on admission and 48 this am. Continue NS @ 75cc/hr x 24 hours. Repeat BMP in the am. 2. Weakness New onset recently with 2 falls at home. Consult placed to PT and OT to evaluate and treat. Obtain urine to rule out UTI as contributing factor. 3. Hematoma of face Acute, new onset from fall on 10/12. Was seen in ED and diagnosed with nasal bone fractures. Patienton a blood thinner. 4. DM type 2 (diabetes mellitus, type 2) Chronic. ADA diet. Blood glucose goal of 180 or less and avoid hypoglycemia. 5. PAF (paroxysmal atrial fibrillation) Chronic. Continue eliquis and metoprolol as at home. 6. HTN (hypertension) Chronic. Continue current antihypertensives. SBP goal of 140 or less. DVT prophylaxis with eliquis. Code status: Full Code. Labs, diagnostic test and progress notes reviewed as noted in HPI. Plan of care discussed with patient. All questions answered. Patient verbalizes understanding and is agreeable with plan of care. This case was discussed with collaborating physician, Dr. Rosario Pena. 73 minutes spent reviewing past diagnostic tests, reviewing lab results, vital sign trends, medicalhistory, reviewing medications and ordering home medications, examining patient, discussed plan of care with care team, collaborating with physician, and documenting in chart. Problem List/Past Medical History Ongoing (HFpEF) heart failure with preserved ejection fraction DM type 2 (diabetes mellitus, type 2) History of cardioversion HTN (hypertension) Lack of family support PAF (paroxysmal atrial fibrillation) Procedure/Surgical History Cardioversion: 07/13/23 Echocardiogram: 07/11/23 Medications Home Medications (29) Active amiodarone 200 mg oral tablet 200 mg = 1 tab(s), Oral, qDay amLODIPine 10 mg, Oral, qDay atorvastatin 10 mg oral tablet 10 mg = 1 tab(s), Oral, qDay Tumtum Saline 0.65% nasal gel See Instructions Biofreeze 4% topical gel See Instructions, PRN bisacodyl 10 mg rectal suppository 10 mg = 1 supp, PRN, Rectal, qDay calcium carbonate 500 mg (200 mg elemental calcium) oral tablet, chewable 500 mg = 1 tab(s), PRN, Chewed, q8h Colace 100 mg oral capsule 100 mg = 1 cap(s), PRN, Oral, BID docusate-senna 50 mg-8.6 mg oral tablet 1 tab(s), PRN, Oral, qHS Eliquis 5 mg oral tablet 5 mg = 1 tab(s), Oral, BID furosemide 20 mg oral tablet 20 mg = 1 tab(s), Oral, qDay glimepiride 2 mg oral tablet 2 mg = 1 tab(s), Oral, Daily glucagon 1 mg injection 1 mg, PRN, Subcutaneous, Once guaiFENesin 100 mg/5 mL oral liquid 200 mg = 10 mL, PRN, Oral, q4h IRON (ferrous sulfate 325 mg) 65 mg oral tablet 325 mg = 1 tab(s), Oral, qDayM metFORMIN 1000 mg oral tablet (IR) 1,000 mg = 1 tab(s), Oral, BID metoprolol tartrate 100 mg oral tablet 100 mg = 1 tab(s), Oral, BID Milk of Magnesia 8% oral suspension 2.4 gram(s) = 30 mL, PRN, Oral, qDay MiraLax oral powder for reconstitution 17 gram(s), PRN, Oral, qDay Multivitamin 1 tab(s), Oral, qDay oxybutynin 15 mg/24 hr oral tablet, extended release 15 mg = 1 tab(s), Oral, BID Senexon-S 50 mg-8.6 mg oral tablet 2 tab(s), PRN, Oral, qHS sertraline 100 mg oral tablet 100 mg = 1 tab(s), Oral, qDay sodium biphosphate-sodium phosphate 19 g-7 g rectal enema See Instructions, PRN sodium biphosphate-sodium phosphate 19 g-7 g rectal enema See Instructions, PRN Tikosyn 250 mcg oral capsule 250 mcg = 1 cap(s), Oral, q12hr Tylenol 325 mg oral capsule 650 mg, PRN, Oral, q4h Vitamin C 500 mg oral tablet 500 mg = 1 tab(s), Oral, qDay Vitamin D3 50 mcg = 1 tab(s), Oral, Daily Allergies Monopril pioglitazone Social History Alcohol Use: Never., 08/18/2023 Substance Abuse Use: Never., 08/18/2023 Tobacco Nicotine Use: Never (less than 100 in lifetime)., 07/20/2023 Family History Heart failure: Father. Health Status Family Member(s) Immunizations pneumococcal 13-valent conjugate vaccine: 0.5 unknown unit (03/04/20) SARS-CoV-2 (COVID-19) mRNA-1273 vaccine: 50 unknown unit (03/10/21) SARS-CoV-2 (COVID-19) mRNA-1273 vaccine: 0.5 unknown unit (08/11/20) SARS-CoV-2 (COVID-19) mRNA-1273 vaccine: 0.5 unknown unit (07/14/20) tetanus/diphth/pertuss (Tdap) adult/adol: 0.5 mL (10/12/24) Code Status Code Status - Ordered -- 10/15/24 20:17:00 EDT, Full Code, Constant Order Digitally Signed by YAS STEVENSON on 10/16/2024 11:22 AM Digitally Signed by ROSARIO PENA DO on 10/20/2024 08:08 AM [facility] [place]06-02-2025 Note* Exam Date Time Procedure Performing Provider Status 10/15/24 5:20 PM EKG [ED [facility]] - CV JOSEPH LACY MD; [facility] (Verified) ECG Final Report Atrial flutter Borderline low voltage, extremity leads Minimal ST depression, diffuse leads Baseline wander in lead(s) V6 Electronic Signature: JOSEPH LACY MD 10/15/2024 17:37:57 [facility] [place]05-30-2025 Hospital Discharge instructions Patient Education 10/12/2024 03:40:52 Nose Fracture, with X-Ray Nose Fracture, with X-Ray A broken bone, or fracture, of the nose may be a minor crack. Or it may be a major break, with the parts of your nose pushed out of place. A fractured nose causes pain, swelling, and nasal stuffiness. You may have bleeding from your nose. By tomorrow, you may have bruising around your eyes. A minor fracture will heal in 3 to 4 weeks, with no more treatment needed. A major break that changes the shape of your nose may need to be treated by a nose specialist, called an ENT (ear, nose, andthroat) doctor.The ENT doctor will straighten the bones in your nose. This is called a reduction. Some fractures may need a reduction as soon as possible, such as when bleeding from the nose won't stop. Otherwise, it is best to wait a few days until the swelling has gone down. The doctor will then be able to easily see when your nose is back in the right position. Home care Use an ice pack on your nose for no more than 15 to 20 minutes at a time. Do this every 1 to 2 hours for the first 24 to 48 hours. Then use the ice as needed to ease pain and swelling. To make an icepack, put ice cubes in a plastic bag that seals at the top. Wrap the bag in a clean, thin towel or cloth. Never put ice or an ice pack directly on the skin. Tell your provider if you are taking aspirin or blood-thinning medicine. These medicines make it more likely that your nose will bleed. Your provider may need to change your dose. You may use [id number] pain medicine to control pain, unless another medicine was prescribed.If you have chronic liver or kidney disease or history of gastrointestinal ulcers, talk with your provider before using this medicine. Don t drink alcohol or hot liquids for the next 2 days. Alcohol and hot liquids can dilate blood vessels in your nose. This can cause bleeding. Don t blow your nose for the first 2 days. Then, do so gently so you don't cause bleeding. Don t play contact sports in the next 6 weeks unless you can protect your nose from getting injuredagain. You can wear a special custom-fitted plastic face mask to protect your nose. Special note on concussions If you had any symptoms of a concussion today, don t return to sports or any activity that could result in another head injury. These are symptoms of a concussion: Nausea Vomiting Dizziness Confusion Headache Memory loss Loss of consciousness Wait until all of your symptoms are gone and your provider says it s OK to resume your activity. Having a second head injury before you fully recover from the first one can lead to serious brain injury. Follow-up care Follow up with your healthcare provider, or as advised. If your nose looks crooked after the swelling goes down, call the ENT doctor for an appointment within the next 10 days. Also make an appointment if it s still hard to breathe through 1 or both sides of your nose. If you have trouble getting an ENT appointment, call your regular provider. If the bones are out of place, a reduction should be done 6 to 10 days after the injury. In children, the reduction should be done 3 to 7 days after the injury. After that time, the bones are more difficult to move back into place. If you had X-rays taken, you will be told of any new findings that may affect your care. When to seek medical advice Call your healthcare provider right away if any of these occur: Bleeding from your nose even after you have pinched your nostrils together for 15 minutes without stopping Swelling, pain, or redness on your face that gets worse Fever of 100.4 F (38 C) or higher, or chills, as directed by your healthcare provider Can't breathe from both sides of your nose after swelling goes down Sinus pain Call 911 Call 911 if you have: Repeated vomiting Severe headache or dizziness Headache or dizziness that gets worse Abnormal drowsiness, or unable to wake up as usual Confusion or change in behavior or speech Convulsion, or seizure [id number] [employer]. [address] [place] [address]. All rights reserved. This information is not intended as a substitute for professional medical care. Always follow yourhealthcare professional's instructions. Follow Up Care 10/12/2024 02:23:59 With:NADJA DALE DO Address: [address] [facility] [place] [address] [phone] When:3-7 days With:Go to emergency room if symptoms worsen Address:Unknown When:2-4 days With:BERNIE REAGAN MD Address: [address] [place] [address] [place] [address]- [phone] When:2-4 days [facility] 05-30-2025 Note Discharge Instructions Thank you for allowing [facility] to assist you with your healthcare needs. The following is importantdischarge information regarding your hospital visit. Diagnosis from Today's Visit Contusion of right knee Nasal bone fractures What to Do Next Instructions from Your Care Team Please follow-up with ear nose and throat within the next week for repeat assessment. You are provided short course of pain medication please note this medication may make you drowsy and try to avoidduring the daytime if possible. Do not drive or operate any heavy machinery while taking this medication. You are also provided Afrin nasal spray which if your nose begins to bleed, blow your nose, soak a piece of tissue paper with the Afrin and clamp down on your nose for 15 minutes and recheck. If you have persistent nosebleed or lightheadedness or dizziness return to the emergency department for more emergent evaluation. No qualifying data available. Post Acute Orders No qualifying data available. You Need to Schedule the Following Appointments Follow Up with NADJA DALE DO When:Within 3-7 days Where:[address] [place] [address] [phone] Follow Up with Go to emergency room if symptoms worsen When:Within 2-4 days Follow Up with BERNIE REAGAN MD When:Within 2-4 days Where:[address] [facility] [place] [address]- [phone] Allergies Monopril pioglitazone Immunizations This Visit Given Vaccine Datetetanus/diphth/pertuss (Tdap) adult/adol 10/12/2024 Medications Please ask your primary doctor or pharmacist before taking any other medication not listed, including over the counter drugs, herbal medications, vitamins and or supplements as they may interact withyour home medications. What How Much When Why Instructions Last Dose New acetaminophen-hydrocodone (Upper Tract 325- 5 mg oral tablet) 1 tab(s) by mouth Every 6 hours as needed for for pain Nasal bone fractures Duration: 3 Days Printed Prescription Unchanged acetaminophen (Tylenol 325 mg oral capsule) 650 Milligram by mouth Every 4 hours as needed for Pain, scale 1-3 Unchanged amLODIPine (amLODIPine 5 mg oral tablet) 1 tab(s) by mouth Once a day Unchanged apixaban (Eliquis 5 mg oral tablet) 1 tab(s) by mouth Two (2) times a day Unchanged ascorbic acid (Vitamin C 500 mg oral tablet) 1 tab(s) by mouth Once a day Unchanged atorvastatin (atorvastatin 40 mg oral tablet) 1 tab(s) by mouth Once a day Unchanged bisacodyl (bisacodyl 10 mg rectal suppository) 1 suppository(ies) in the rectum Once a day as needed for as needed for constipation Unchanged calcium carbonate (calcium carbonate 500 mg (200 mg elemental calcium) oral tablet, chewable) 1 tab(s) Chewed Every 8 hours as needed for as needed for dyspepsia Unchanged cholecalciferol (Vitamin D3) 50 Microgram by mouth Every day Unchanged docusate (Colace 100 mg oral capsule) 1 cap by mouth Two (2) times a day as needed for Constipation Unchanged docusate-senna (docusate-senna 50 mg-8.6 mg oral tablet) 1 tab(s) by mouth Daily at bedtime as needed for Constipation Unchanged docusate-senna (Senexon-S 50 mg-8.6 mg oral tablet) 2 tab(s) by mouth Daily at bedtime as needed for Constipation Unchanged dofetilide (Tikosyn 250 mcg oral capsule) 1 cap by mouth Every 12 hours Unchanged ferrous sulfate (IRON (ferrous sulfate 325 mg) 65 mg oral tablet) 1 tab(s) by mouth Once a day with a meal Unchanged furosemide (furosemide 20 mg oral tablet) 1 tab(s) by mouth Once a day Unchanged glimepiride (glimepiride 4 mg oral tablet) 1 tab(s) by mouth Two (2) times a day Unchanged glucagon (glucagon 1 mg injection) 1 Milligram Subcutaneous Once as needed for Low blood sugar Unchanged guaiFENesin (guaiFENesin 100 mg/ 5 mL oral liquid) 10 Milliliter by mouth Every 4 hours as needed for Cough Unchanged magnesium hydroxide (Milk of Magnesia 8% oral suspension) 30 Milliliter by mouth Once a day as needed for as needed for constipation Unchanged menthol topical (Biofreeze 4% topical gel) See instructions Topical BID to knees, As needed for as needed for pain Unchanged metFORMIN (metFORMIN 1000 mg oral tablet (IR)) 1 tab(s) by mouth Two (2) times a day Unchanged metoprolol (metoprolol succinate 50 mg oral TABLET extended release) 1 tab(s) by mouth Once a day Unchanged multivitamin (Multivitamin) 1 tab(s) by mouth Once a day Unchanged oxybutynin (oxybutynin 15 mg/ 24 hr oral tablet, extended release) 1 tab(s) by mouth Two (2) times a day Unchanged polyethylene glycol 3350 (MiraLax oral powder for reconstitution) 17 gram(s) by mouth Once a day as needed for Constipation Unchanged sertraline (sertraline 100 mg oral tablet) 1 tab(s) by mouth Once a day Unchanged sodium biphosphate-sodium phosphate (sodium biphosphate-sodium phosphate 19 g-7 g rectal enema) See instructions Rectal Once, As needed for as needed for constipation Unchanged sodium biphosphate-sodium phosphate (sodium biphosphate-sodium phosphate 19 g-7 g rectal enema) See instructions mL Rectal Once, As needed for as needed for constipation Unchanged sodium chloride nasal (Tumtum Saline 0.65% nasal gel) See instructions one application in both nostrils q 8 hours prn for dry nares Please take this list to your next doctor s visit. Bring all medications you take, including over the counter medications, herbals and other supplements with you to your doctor s visit. Patients and families are reminded to discard old lists and to update any records with all medication providers or retail pharmacies. Education Materials Nose Fracture, with X-Ray A broken bone, or fracture, of the nose may be a minor crack. Or it may be a major break, with the parts of your nose pushed out of place. A fractured nose causes pain, swelling, and nasal stuffiness. You may have bleeding from your nose. By tomorrow, you may have bruising around your eyes. A minor fracture will heal in 3 to 4 weeks, with no more treatment needed. A major break that changes the shape of your nose may need to be treated by a nose specialist, called an ENT (ear, nose, andthroat) doctor.The ENT doctor will straighten the bones in your nose. This is called a reduction. Some fractures may need a reduction as soon as possible, such as when bleeding from the nose won't stop. Otherwise, it is best to wait a few days until the swelling has gone down. The doctor will then be able to easily see when your nose is back in the right position. Home care Use an ice pack on your nose for no more than 15 to 20 minutes at a time. Do this every 1 to 2 hours for the first 24 to 48 hours. Then use the ice as needed to ease pain and swelling. To make an icepack, put ice cubes in a plastic bag that seals at the top. Wrap the bag in a clean, thin towel or cloth. Never put ice or an ice pack directly on the skin. Tell your provider if you are taking aspirin or blood-thinning medicine. These medicines make it more likely that your nose will bleed. Your provider may need to change your dose. You may use [id number] pain medicine to control pain, unless another medicine was prescribed.If you have chronic liver or kidney disease or history of gastrointestinal ulcers, talk with your provider before using this medicine. Don t drink alcohol or hot liquids for the next 2 days. Alcohol and hot liquids can dilate blood vessels in your nose. This can cause bleeding. Don t blow your nose for the first 2 days. Then, do so gently so you don't cause bleeding. Don t play contact sports in the next 6 weeks unless you can protect your nose from getting injuredagain. You can wear a special custom-fitted plastic face mask to protect your nose. Special note on concussions If you had any symptoms of a concussion today, don t return to sports or any activity that could result in another head injury. These are symptoms of a concussion: Nausea Vomiting Dizziness Confusion Headache Memory loss Loss of consciousness Wait until all of your symptoms are gone and your provider says it s OK to resume your activity. Having a second head injury before you fully recover from the first one can lead to serious brain injury. Follow-up care Follow up with your healthcare provider, or as advised. If your nose looks crooked after the swelling goes down, call the ENT doctor for an appointment within the next 10 days. Also make an appointment if it s still hard to breathe through 1 or both sides of your nose. If you have trouble getting an ENT appointment, call your regular provider. If the bones are out of place, a reduction should be done 6 to 10 days after the injury. In children, the reduction should be done 3 to 7 days after the injury. After that time, the bones are more difficult to move back into place. If you had X-rays taken, you will be told of any new findings that may affect your care. When to seek medical advice Call your healthcare provider right away if any of these occur: Bleeding from your nose even after you have pinched your nostrils together for 15 minutes without stopping Swelling, pain, or redness on your face that gets worse Fever of 100.4 F (38 C) or higher, or chills, as directed by your healthcare provider Can't breathe from both sides of your nose after swelling goes down Sinus pain Call 911 Call 911 if you have: Repeated vomiting Severe headache or dizziness Headache or dizziness that gets worse Abnormal drowsiness, or unable to wake up as usual Confusion or change in behavior or speech Convulsion, or seizure [id number] [employer]. [address] [place] [address]. All rights reserved. This information is not intended as a substitute for professional medical care. Always follow yourhealthcare professional's instructions. Additional Information VACCINATE! IT SAVES LIVES! Members of the community who have not yet received the COVID-19 vaccine and would like to receive it can visit one of [facility] vaccine clinics. There are many vaccine clinic locations within the [facility]. For locations and available times, please visit [email or web address].[email or web address]/. It is important to note that some COVID mobile vaccine clinics are held outdoors and may be canceled in rainy or stormy conditions. To learn more about pediatric vaccinations (ages 5-11), we invite you to visit the [facility] webpage. [email or web address]/[email or web address]-[email or web address]-[email or web address] [email or web address] learn more about the COVID-19 vaccine, we invite you to visit the CDC website for a list of frequently asked questions. https://www.cdc.gov/coronavirus/2019-ncov/vaccines/faq.html [facility] Patient Portal Access Instructions: Stay connected with your healthcare team and access your personal medical information anytime with the [facility] Patient Portal. If you would like a full copy of your medical records please contact the [facility] Medical Records Department Tuesday through Tuesday between 8a.m. and 4:30p.m. Please follow the directions below to access the portal: 1.Access the email account you provided upon registration to the [facility].2.Look for an invitation email from [facility].3.Open the email and access the invitation link: Accept Invitation to [employer]4.Fill in the required cunha to create your account. Sign into [email or web address] with your username and password that you created in the above steps to stay up to date. You can then view a summary of results, a summary of your visits, and the ability to download your summaries to your computer or send the information securely to a physician. Remember that your healthcare information is confidential, so carefully consider who you will allow to register on the [employer] Patient Portal for access to your information. You can also access the [employer] Patient Portal on the [employer]. Simply click on Health Records under [employer] and then click on the [employer] logo. HOW TO SAFELY DISPOSE OF PRESCRIPTION MEDICATIONS Please use one of the following methods to safely dispose of your unused medications. 1.Use a drug disposal kit: the drug disposal pouch allows you to safely discard your old and unuseddrugs. Ask your nurse to give you one when you are discharged.2.Visit a local take-back location: Many local pharmacies and police departments have programs that collect old and unwanted prescriptiondrugs. Call your local pharmacy or go to http://Kms[employer]/6S7Ii3t to find one close to you.3.Make use of household items: Use cat litter or old coffee grounds to dispose medications if other options arenot available. Mix your drugs with these household products, seal them in an airtight container andthrow it into the garbage. Call [facility]: [phone] to be sure your drugs can be disposed of in this way. Some medicines may require a different approach.4.Never flush your medications down the toilet. IF YOU HAVE BEEN PRESCRIBED AN OPIOIDS FOR PAIN If you have been prescribed an opioid (such as hydrocodone, oxycodone or morphine), it is critical to understand the possible side effects and risks of opioid pain medications. Even when taken as directed, opioids can have several side effects including: Tolerance, meaning you might need to take more of a medication for the same pain relief. Nausea, vomiting and/or constipation. Sleepiness, dizziness, dry mouth, confusion, depression or itching. Physical dependence, meaning you have withdrawal symptoms when a medication is stopped ? this can develop within a few days. KNOW YOUR RESPONSIBILITIES It is important to know exactly how much and how often to take the opioid pain medications you are prescribed. Never take opioids in higher amounts or more often than prescribed. Do not combine opioids with alcohol or other drugs that cause drowsiness, such as benzodiazepines, also known as benzos,including diazepam and alprazolam, muscle relaxants or sleep aids. Never sell or share prescriptionopioids. This is illegal. Store opioids in a secure place and out of reach of others (including children, family, friends and visitors). The last page(s) of this document has been signed and retained as a CHART COPY Signatures Patient Education Materials Nose Fracture, with X-Ray Medication Leaflets My discharge plan and instructions have been reviewed and explained to me and I,JOSELINE ELLIS understand my current condition and have read and understand these discharge instructions. I have received a written copy of the plan/instructions. If I have questions, I am aware that I should contact my doctor. 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: Date/Time: Relationship to Patient: Witness Name/Signature: Date/Time: [facility]05-30-2025 Note* Exam Date Time Procedure Performing Provider Status 10/12/24 3:18 AM XR Knee 3 Views Right CHIP CROCKETT MD; Auth (Verified) [id number] ORIGINAL EXAMINATION: THREE XRAY VIEWS OF THE RIGHT KNEE 10/12/2024 3:18 am COMPARISON: 12/22/2022 HISTORY: ORDERING SYSTEM PROVIDED HISTORY: Reason for Exam: Patient tripped at home, fell, hit her nose, patient is on Eliquis fall FINDINGS: Partially visualized intramedullary femur nail with distal screw fixation. Hardware appears intact. No acute fracture or dislocation. No radiopaque foreign body. Anterior knee soft tissue swelling. Small anterior suprapatellar joint effusion. Moderate to severe tricompartmental osteoarthritis of the knee. Vascular calcifications. IMPRESSION: No acute fracture or dislocation. Small anterior suprapatellar joint effusion and mild anterior knee soft tissue swelling. Advanced arthritis. I have personally reviewed the images of this examination, and agree with the resident's findings and interpretation. Interpreted by: Chip Crockett MD Preliminary Report By: Giacomo May Electronically signed By Chip Crockett MD Dictated Date: 10/12/2024 3:30:21 AM Prelim Date: 10/12/2024 3:33:30 AM Sign Date: 10/12/2024 3:41:38 AM Ordering Provider: [facility]05-30-2025 Note* Exam Date Time Procedure Performing Provider Status 10/12/24 3:18 AM XR Chest 1 View CHIP CROCKETT MD; Auth (Verified) [id number] ORIGINAL EXAMINATION: ONE XRAY VIEW OF THE CHEST 10/12/2024 3:18 am COMPARISON: 07/10/2023 HISTORY: ORDERING SYSTEM PROVIDED HISTORY: Reason for Exam: Patient tripped at home, fell, hit her nose, patient is on Eliquis fall FINDINGS: Normal cardiomediastinal silhouette. No focal consolidation. Low lung volumes with prominent bronchovascular markings are presumably due to hypoventilation. No large pleural effusion or pneumothorax. No acute osseous findings. Degenerative changes in the spine and bilateral humeral head. IMPRESSION: No acute radiographic findings. Hypoventilatory changes. I have personally reviewed the images of this examination, and agree with the resident's findings and interpretation. Interpreted by: Chip Crockett MD Preliminary Report By: Giacomo May Electronically signed By Chip Crockett MD Dictated Date: 10/12/2024 3:28:48 AM Prelim Date: 10/12/2024 3:30:12 AM Sign Date: 10/12/2024 3:39:21 AM Ordering Provider: [facility]05-30-2025 Note* Exam Date Time Procedure Performing Provider Status 10/12/24 3:[address] Spine Cervical w/o Contrast CHIP CROCKETT MD; Auth (Verified) [id number] ORIGINAL EXAMINATION: CT OF THE CERVICAL SPINE WITHOUT CONTRAST 10/12/2024 3:18 am TECHNIQUE: CT of the cervical spine was performed without the administration of intravenous contrast. Multiplanar reformatted images are provided for review. Automated exposure control, iterative reconstruction, and/or weight based adjustment of the mA/kV was utilized to reduce the radiation dose to as low as reasonably achievable. COMPARISON: CT cervical spine on 07/10/2023 HISTORY: ORDERING SYSTEM PROVIDED HISTORY: Reason for Exam: Patient tripped at home, fell, hit her nose, patient is on Eliquis pain FINDINGS: BONES/ALIGNMENT: Anterior fusion of C3 through C7 has been performed. Hardware is in satisfactory position with no sign of loosening. 3 mm of anterolisthesis of C7 on T1 is unchanged. There is no acute fracture or traumatic subluxation. The odontoid process is intact. DEGENERATIVE CHANGES: There is fusion of C3 through C7 vertebral bodies. Moderate degenerative facet arthropathy is present throughout the cervical spine bilaterally. There is no severe spinal stenosis. SOFT TISSUES: There is no prevertebral soft tissue swelling. IMPRESSION: 1. No acute abnormality of the cervical spine. 2. Status post anterior fusion of C3 through C7. 3. Stable grade 1 anterolisthesis of C7 on T1. Interpreted by: Chip Crockett MD Preliminary Report By: Chip Crockett MD Electronically signed By Chip Crockett MD Dictated Date: 10/12/2024 3:28:10 AM Prelim Date: 10/12/2024 3:31:14 AM Sign Date: 10/12/2024 3:31:14 AM Ordering Provider: [facility]05-30-2025 Note* Exam Date Time Procedure Performing Provider Status 10/12/24 3:[address] Maxillofacial w/o Contrast CHIP CROCKETT MD; Auth (Verified) [id number] ORIGINAL EXAMINATION: CT OF THE HEAD WITHOUT CONTRAST; CT OF THE FACE WITHOUT CONTRAST 10/12/2024 2:58 am; 10/12/2024 3:03 am TECHNIQUE: CT of the head was performed without the administration of intravenous contrast. Automated exposure control, iterative reconstruction, and/or weight based adjustment of the mA/kV was utilized to reduce the radiation dose to as low as reasonably achievable.; CT of the face was performed without the administration of intravenous contrast. Multiplanar reformatted images are provided for review. Automated exposure control, iterative reconstruction, and/or weight based adjustment of the mA/kV was utilized to reduce the radiation dose to as low as reasonably achievable. COMPARISON: CT head on 07/10/2023 HISTORY: ORDERING SYSTEM PROVIDED HISTORY: Reason for Exam: Patient tripped at home, fell, hit her nose, patient is on Eliquis INJURY FINDINGS: BRAIN/VENTRICLES: There is no acute intracranial hemorrhage, mass effect or midline shift. No abnormal extra-axial fluid collection. The soliz-white differentiation is maintained without evidence of an acute infarct. There is no evidence of hydrocephalus. Scattered parenchymal hypodensities in the cerebral white matter are nonspecific but statistically most consistent with mild chronic microvascular angiopathy. There is proportionate enlargement of the ventricular system and cortical sulci compatible with mild parenchymal volume loss. ORBITS: The visualized portion of the orbits demonstrate no acute abnormality. SINUSES: There is a complete opacification of left maxillary sinus. Several anterior ethmoid air cells are opacified. Trace of fluid is present in the left sphenoid sinus. No fracture of the maxilla or other paranasal sinuses is detected. SOFT TISSUES/SKULL: There is comminuted fracture of the nasal bone with mild impaction on the left side. Soft tissue swelling is present around the nasal bone with small amount of soft tissue gas associated with the nasal fracture. No additional facial fracture is present. The mandible is intact with normal alignment the temporomandibular joints. IMPRESSION: 1. No acute intracranial abnormality. 2. Comminuted mildly impacted nasal bone fracture. 3. Paranasal sinus disease. Interpreted by: Chip Crockett MD Preliminary Report By: Chip Crockett MD Electronically signed By Cihp Crockett MD Dictated Date: 10/12/2024 3:04:39 AM Prelim Date: 10/12/2024 3:10:45 AM Sign Date: 10/12/2024 3:10:45 AM Ordering Provider: [facility]05-30-2025 Note* Exam Date Time Procedure Performing Provider Status 10/12/24 2:[address] Head or Brain w/o Contrast CHIP CROCKETT MD; Auth (Verified) [id number] ORIGINAL EXAMINATION: CT OF THE HEAD WITHOUT CONTRAST; CT OF THE FACE WITHOUT CONTRAST 10/12/2024 2:58 am; 10/12/2024 3:03 am TECHNIQUE: CT of the head was performed without the administration of intravenous contrast. Automated exposure control, iterative reconstruction, and/or weight based adjustment of the mA/kV was utilized to reduce the radiation dose to as low as reasonably achievable.; CT of the face was performed without the administration of intravenous contrast. Multiplanar reformatted images are provided for review. Automated exposure control, iterative reconstruction, and/or weight based adjustment of the mA/kV was utilized to reduce the radiation dose to as low as reasonably achievable. COMPARISON: CT head on 07/10/2023 HISTORY: ORDERING SYSTEM PROVIDED HISTORY: Reason for Exam: Patient tripped at home, fell, hit her nose, patient is on Eliquis INJURY FINDINGS: BRAIN/VENTRICLES: There is no acute intracranial hemorrhage, mass effect or midline shift. No abnormal extra-axial fluid collection. The soliz-white differentiation is maintained without evidence of an acute infarct. There is no evidence of hydrocephalus. Scattered parenchymal hypodensities in the cerebral white matter are nonspecific but statistically most consistent with mild chronic microvascular angiopathy. There is proportionate enlargement of the ventricular system and cortical sulci compatible with mild parenchymal volume loss. ORBITS: The visualized portion of the orbits demonstrate no acute abnormality. SINUSES: There is a complete opacification of left maxillary sinus. Several anterior ethmoid air cells are opacified. Trace of fluid is present in the left sphenoid sinus. No fracture of the maxilla or other paranasal sinuses is detected. SOFT TISSUES/SKULL: There is comminuted fracture of the nasal bone with mild impaction on the left side. Soft tissue swelling is present around the nasal bone with small amount of soft tissue gas associated with the nasal fracture. No additional facial fracture is present. The mandible is intact with normal alignment the temporomandibular joints. IMPRESSION: 1. No acute intracranial abnormality. 2. Comminuted mildly impacted nasal bone fracture. 3. Paranasal sinus disease. Interpreted by: Chip Crockett MD Preliminary Report By: Chip Crockett MD Electronically signed By Chip Crockett MD Dictated Date: 10/12/2024 3:04:39 AM Prelim Date: 10/12/2024 3:10:45 AM Sign Date: 10/12/2024 3:10:45 AM Ordering Provider: [facility]05-27-2025 Progress note Author Fatemeh Espinosa [facility] Note Date/Time October 09, 2024 9:34a m [facility] [address] [place] [address] Progress Note - Wound Care 10/09/24 0933 MR#: [id number] Acct: [id number] Name: JOSELINE ELLIS Rep #:[id number] 2 : 1950 74 From: Fatemeh Espinosa DPM PCP: Dr. Bernie Reagan MD Status:R EG RCR Location: History of Present Illness Date of Service: 10/09/24 Chief Complaint: Multiple, small superficial ulcerations in the lower extremities bilaterally History of Wound: This 72-year-old white female who presented with right 2nd toeucleration, denies constitutionals, denies pain, no new changes. Objective Data Objective Data Vital Signs: Vital Signs Temp Pulse Resp BP O2 Del Method 96.9 F L 113 H 18 132/84 H Room Air 10/09/24 08:41 10/09/24 08:41 10/09/24 08:41 10/09/24 08:41 10/09/24 08:41 Oxygen Delivery Method Room Air Weight: 81.193 kg Body Mass Index (BMI) 32.7 Physical Exam Narrative Vascular: Dorsalis pedis posterior tibial pulses palpable 2 out of 4 to bilateral lower extremity compartments. Some a skin atrophic changes noted bilaterally. Digital hair growth noted bilaterally. +1 pitting edema noted to Vance malleoli regions bilaterally. Neurologic: Light touch and protective sensation absent to bilateral feet. Musculoskeletal: No gross deformity noted muscular strength for the bilateral lower extremity compartments. Dermatologic: Full-thickness ulceration noted to the distal aspect of the right second toe. Healed wounds to lateral aspect of the fifth toe to the right foot. No deep probing undermining or acute signs of infection. Full-thickness ulcerations noted to the anterior medial left leg - healed. No deep probing undermining acute signs of infection noted. Const alert and oriented x3 Debridement Note Debridement Note Post-Debridement Measurements and Additional Note: Post-Debridement Measurements/Treatment - Nurse 1 - General Ulcer Assessment Start: 09/18/24 09:15 Freq: Status: Active Protocol: .LOWEXT Activity Type Activity Date Activity User E-sign Co-sign Detail Recorded Client Recorded Date Recorded By Document 09/18/24 09:15 RB [id number] 09/18/24 09:18 RB Document 09/25/24 09:10 KW [id number] 09/25/24 09:19 KW Document 10/02/24 08:44 KW [id number] 10/02/24 08:49 KW Document 10/09/24 08:41 ML [id number] 10/09/24 08:46 ML 09/18/24 09/25/24 10/02/24 09:15 09:10 08:44 WC - Today's Visit Information Type of service Follow-up Visit Follow-up Visit Follow-up Visit (Physician/PANTOGRAPH WATCHER (Physician/PANTOGRAPH WATCHER (Physician/PANTOGRAPH WATCHER ) ) ) Arrival Mode Ambulatory, Ambulatory, Ambulatory, Walker Walker Walker Transfer Assistance None Patient Identification Verified (Name & Yes Yes Yes ) Patient Requires Transmission-Based No Precautions Height and Weight Body Mass Index (BMI) 32.7 32.7 32.7 BMI Classification Obese Obese Obese Vital Signs Temperature (97.8 F-99.1 F) 96.5 F L 96.3 F L 97.6 F L Temperature Source Temporal Temporal Temporal Pulse Rate (60-100) 136 H 142 H 126 H Pulse Location Monitor Monitor Monitor Respiratory Rate (12-18) 18 18 18 Respiratory rate source Observation Observation Observation Oxygen Delivery Method Room Air Room Air Blood Pressure (90/60-120/80) 126/89 H 145/94 H 157/98 H Blood Pressure Mean (mm Hg) 101 111 117 Source Monitor Monitor Monitor Position Sitting Semi-Fowlers Semi-Fowlers Blood Pressure Location Left Arm Left Arm Left Arm History Since Last Visit- (Skip if this is Patient's initial visit) Have you changed medications since your No No No last visit? Any new allergies or adverse reactions No No No Had a fall/change in ADL's that may No No No increase risk of falls Signs or symptoms of abuse and/or No No No neglect since last visit Have you been in the hospital since your No No No last visit? Has dressing in place as prescribed Yes Yes Yes Has compression in place as prescribed Yes Yes Yes Has offloadiing in place as prescribed N/A Yes Yes Experienced any changes in pain level or No No No management Left Footwear Regular Shoe Regular Shoe Regular Shoe Right Footwear Surgical Shoe Surgical Shoe Surgical Shoe with pressure with pressure with pressure relief insole relief insole relief insole Pain Scale: 0-10 Numeric Is Patient Pain Free? Yes Yes Yes 10/09/24 08:41 WC - Today's Visit Information Type of service Follow-up Visit (Physician/PANTOGRAPH WATCHER ) Arrival Mode Ambulatory, Walker Transfer Assistance Patient Identification Verified (Name & Yes ) Patient Requires Transmission-Based Precautions Height and Weight Body Mass Index (BMI) 32.7 BMI Classification Obese Vital Signs Temperature (97.8 F-99.1 F) 96.9 F L Temperature Source Temporal Pulse Rate (60-100) 113 H Pulse Location Monitor Respiratory Rate (12-18) 18 Respiratory rate source Observation Oxygen Delivery Method Room Air Blood Pressure (90/60-120/80) 132/84 H Blood Pressure Mean (mm Hg) 100 Source Monitor Position Sitting Blood Pressure Location Left Arm History Since Last Visit- (Skip if this is Patient's initial visit) Have you changed medications since your No last visit? Any new allergies or adverse reactions No Had a fall/change in ADL's that may No increase risk of falls Signs or symptoms of abuse and/or No neglect since last visit Have you been in the hospital since your No last visit? Has dressing in place as prescribed Yes Has compression in place as prescribed Yes Has offloadiing in place as prescribed Yes Experienced any changes in pain level or No management Left Footwear Regular Shoe Right Footwear Surgical Shoe with pressure relief insole Pain Scale: 0-10 Numeric Is Patient Pain Free? Yes - Nurse 1 - General Ulcer Measurement Start: 09/18/24 09:15 Freq: Status: Active Protocol: Activity Type Activity Date Activity User E-sign Co-sign Detail Recorded Client Recorded Date Recorded By Document 09/18/24 09:15 RB [id number] 09/18/24 09:18 RB Document 09/25/24 09:10 KW [id number] 09/25/24 09:19 KW Document 10/02/24 08:44 KW [id number] 10/02/24 08:49 KW Document 10/09/24 08:41 ML [id number] 10/09/24 08:46 ML 09/18/24 09/25/24 10/02/24 09:15 09:10 08:44 Wound Center Nurse 1 11. 5th TOE LATERAL -Combined with other wound No -Current Size (cm) - Length 0.1 0.1 0.1 -Current Size (cm) - Width 0.1 0.1 0.1 -Current Size (cm) - Depth 0.1 0.1 0 -Total Square Cm 0.01 0.01 0.01 -Date of Last Picture (Recall this 10/02/24 field) -Photo Taken Yes -Epithelialization Large 67-100% -Undermining/Tunneling No -Circular Undermining No -Exudate Amt None Present Small None Present -Exudate Type Serosanguineous -Wound Margin Distinct, Distinct, Outline Outline Attached Attached -Granulation Amt Large (67-100%) None Present (0 %) -Granulation Quality Alta -Slough/Fibrin Yes -Necrosis Amt Small (1-33%) Large (67-100%) -Necrotic Tissue Type Adherent Slough Adherent Slough -Structure Exposed N/A -Texture (Jessica-wound Skin Appearance) Assessed Assessed,Callus Assessed -Moisture (Jessica-wound Skin Appearance) Assessed Assessed Assessed -Color (Jessica-wound Skin Appearance) Assessed Assessed Assessed -Temperature (Jessica-wound Skin No Abnormality No Abnormality No Abnormality Appearance) (Pt Warm) (Pt Warm) (Pt Warm) -Tenderness on Palpation (Jessica-wound No No No Skin Appearance) -Ulcer Cleansing Wound Cleanser Soap and Water -Foul Odor after Cleansing No No No -Anesthetic Used 5% Lidocaine 5% Lidocaine Gel Gel 9. LLE MEDIAL -Combined with other wound No -Current Size (cm) - Length 0.5 0.5 -Current Size (cm) - Width 0.7 0.4 -Current Size (cm) - Depth 0.1 0.1 -Total Square Cm 0.35 0.20 -Photo Taken Yes -Tunneling No -Undermining/Tunneling No -Circular Undermining No -Exudate Amt Medium Small -Exudate Type Serosanguineous Serosanguineous -Wound Margin Distinct, Distinct, Outline Outline Attached Attached -Granulation Amt Medium (34-66%) Medium (34-66%) -Granulation Quality Alta Red -Slough/Fibrin Yes -Necrosis Amt Small (1-33%) Medium (34-66%) -Necrotic Tissue Type Adherent Slough Adherent Slough -Structure Exposed N/A -Texture (Jessica-wound Skin Appearance) Assessed Assessed -Moisture (Jessica-wound Skin Appearance) Assessed Assessed -Color (Jessica-wound Skin Appearance) Assessed Assessed -Temperature (Jessica-wound Skin No Abnormality No Abnormality Appearance) (Pt Warm) (Pt Warm) -Tenderness on Palpation (Jessica-wound No No Skin Appearance) -Ulcer Cleansing Wound Cleanser Soap and Water -Foul Odor after Cleansing No No -Anesthetic Used 5% Lidocaine 5% Lidocaine Gel Gel 8. L NOLASCO CLUSTER -Combined with other wound No -Current Size (cm) - Length 0.1 0.1 -Current Size (cm) - Width 0.1 0.1 -Current Size (cm) - Depth 0.1 0.1 -Total Square Cm 0.01 0.01 -Photo Taken Yes -Tunneling No -Undermining/Tunneling No -Circular Undermining No -Exudate Amt Medium None Present -Exudate Type Serosanguineous -Wound Margin Distinct, Outline Attached -Granulation Amt Medium (34-66%) Large (67-100%) -Granulation Quality Al[place] Red -Slough/Fibrin Yes -Necrosis Amt Small (1-33%) -Necrotic Tissue Type Adherent Slough -Structure Exposed N/A -Texture (Jessica-wound Skin Appearance) Assessed Assessed -Moisture (Jessica-wound Skin Appearance) Assessed Assessed -Color (Jessica-wound Skin Appearance) Assessed Assessed -Temperature (Jessica-wound Skin No Abnormality No Abnormality Appearance) (Pt Warm) (Pt Warm) -Tenderness on Palpation (Jessica-wound No No Skin Appearance) -Ulcer Cleansing Wound Cleanser Soap and Water -Foul Odor after Cleansing No No -Anesthetic Used 5% Lidocaine Gel 10. R 2nd TOE -Combined with other wound No -Current Size (cm) - Length 0.3 0.3 0.2 -Current Size (cm) - Width 0.7 0.5 0.5 -Current Size (cm) - Depth 0.1 0.1 0.2 -Total Square Cm 0.21 0.15 0.10 -Date of Last Picture (Recall this 10/02/24 field) -Photo Taken Yes -Tunneling No -Undermining/Tunneling No -Circular Undermining No -Exudate Amt Medium Small Small -Exudate Type Serosanguineous Serosanguineous Serosanguineous -Wound Margin Distinct, Distinct, Distinct, Outline Outline Outline Attached Attached Attached -Granulation Amt Medium (34-66%) Large (67-100%) Large (67-100%) -Granulation Quality Alta Red Red -Slough/Fibrin Yes -Necrosis Amt Small (1-33%) -Necrotic Tissue Type Adherent Slough -Structure Exposed N/A -Texture (Jessica-wound Skin Appearance) Assessed Assessed,Callus Assessed -Moisture (Jessica-wound Skin Appearance) Assessed Assessed Assessed -Color (Jessica-wound Skin Appearance) Assessed Assessed Assessed -Temperature (Jessica-wound Skin No Abnormality No Abnormality No Abnormality Appearance) (Pt Warm) (Pt Warm) (Pt Warm) -Tenderness on Palpation (Jessica-wound No No No Skin Appearance) -Ulcer Cleansing Wound Cleanser Soap and Water Rinsed/ Irrigated with Saline -Foul Odor after Cleansing No No -Anesthetic Used 5% Lidocaine 5% Lidocaine 5% Lidocaine Gel Gel Gel Lower Limb Edema Present Yes Right Calf (cm) 34.5 33.5 33.8 Right Ankle (cm) 20.5 19 20 Left Calf (cm) 34.5 33 34 Left Ankle (cm) 20.5 20 19.5 10/09/24 08:41 Wound Center Nurse 1 11. 5th TOE LATERAL -Combined with other wound -Current Size (cm) - Length -Current Size (cm) - Width -Current Size (cm) - Depth -Total Square Cm -Date of Last Picture (Recall this field) -Photo Taken -Epithelialization -Undermining/Tunneling -Circular Undermining -Exudate Amt -Exudate Type -Wound Margin -Granulation Amt -Granulation Quality -Slough/Fibrin -Necrosis Amt -Necrotic Tissue Type -Structure Exposed -Texture (Jessica-wound Skin Appearance) -Moisture (Jessica-wound Skin Appearance) -Color (Jessica-wound Skin Appearance) -Temperature (Jessica-wound Skin Appearance) -Tenderness on Palpation (Jessica-wound Skin Appearance) -Ulcer Cleansing -Foul Odor after Cleansing -Anesthetic Used 9. LLE MEDIAL -Combined with other wound -Current Size (cm) - Length -Current Size (cm) - Width -Current Size (cm) - Depth -Total Square Cm -Photo Taken -Tunneling -Undermining/Tunneling -Circular Undermining -Exudate Amt -Exudate Type -Wound Margin -Granulation Amt -Granulation Quality -Slough/Fibrin -Necrosis Amt -Necrotic Tissue Type -Structure Exposed -Texture (Jessica-wound Skin Appearance) -Moisture (Jessica-wound Skin Appearance) -Color (Jessica-wound Skin Appearance) -Temperature (Jessica-wound Skin Appearance) -Tenderness on Palpation (Jessica-wound Skin Appearance) -Ulcer Cleansing -Foul Odor after Cleansing -Anesthetic Used 8. L NOLASCO CLUSTER -Combined with other wound -Current Size (cm) - Length -Current Size (cm) - Width -Current Size (cm) - Depth -Total Square Cm -Photo Taken -Tunneling -Undermining/Tunneling -Circular Undermining -Exudate Amt -Exudate Type -Wound Margin -Granulation Amt -Granulation Quality -Slough/Fibrin -Necrosis Amt -Necrotic Tissue Type -Structure Exposed -Texture (Jessica-wound Skin Appearance) -Moisture (Jessica-wound Skin Appearance) -Color (Jessica-wound Skin Appearance) -Temperature (Jessica-wound Skin Appearance) -Tenderness on Palpation (Jessica-wound Skin Appearance) -Ulcer Cleansing -Foul Odor after Cleansing -Anesthetic Used 10. R 2nd TOE -Combined with other wound -Current Size (cm) - Length 0.3 -Current Size (cm) - Width 0.3 -Current Size (cm) - Depth 0.1 -Total Square Cm 0.09 -Date of Last Picture (Recall this field) -Photo Taken -Tunneling -Undermining/Tunneling -Circular Undermining -Exudate Amt Small -Exudate Type Serosanguineous -Wound Margin Distinct, Outline Attached -Granulation Amt Small (1-33%) -Granulation Quality Alta -Slough/Fibrin -Necrosis Amt Small (1-33%) -Necrotic Tissue Type Adherent Slough -Structure Exposed -Texture (Jessica-wound Skin Appearance) Assessed -Moisture (Jessica-wound Skin Appearance) Assessed -Color (Jessica-wound Skin Appearance) Assessed, Erythema -Temperature (Jessica-wound Skin No Abnormality Appearance) (Pt Warm) -Tenderness on Palpation (Jessica-wound No Skin Appearance) -Ulcer Cleansing Soap and Water -Foul Odor after Cleansing No -Anesthetic Used 5% Lidocaine Gel Lower Limb Edema Present Right Calf (cm) Right Ankle (cm) Left Calf (cm) Left Ankle (cm) WC - Nurse 2 - General Ulcer CM Notes Start: 09/18/24 09:15 Freq: Status: Active Protocol: Activity Type Activity Date Activity User E-sign Co-sign Detail Recorded Client Recorded Date Recorded By Document 09/18/24 09:30 ALBERTO [id number] 09/18/24 09:35 ALBERTO Document 09/25/24 09:40 ALBERTO [id number] 09/25/24 09:45 Document 10/02/24 09:08 [id number] 10/02/24 09:09 Document 10/09/24 08:51 [id number] 10/09/24 08:53 09/18/24 09/25/24 10/02/24 09:30 09:40 09:08 Wound Center Nurse 2 11. 5th TOE LATERAL -Time 09:32 09:42 -Correct Patient Yes Yes Yes -Correct Side, Site, Position Yes Yes No -Correct Procedure Yes Yes No -Procedure Performed Yes Yes No -Type of Procedure Debridement Debridement -Clinical Debridement Subcutaneous Subcutaneous -Tissue Removed Subcutaneous Subcutaneous -Post Debridement (cm) - Length 0.5 0.5 0 -Post Debridement (cm) - Width 0.5 0.6 0 -Post Debridement (cm) - Depth 0.2 0.1 0 -Total Square (Post) (cm) 0.25 0.30 0 -Area of Debridement (cm) - Length 0.5 0.5 0 -Area of Debridement (cm) - Width 0.5 0.6 0 -Total Square (Area) (cm) 0.25 0.30 0 -Tunneling No No -Undermining/Tunneling No No -Circular Undermining No No -Wound/Ulcer Outcome Not Healed Not Healed Healed- Epithelialized -Ulcer Cleansing Rinsed/ Rinsed/ Irrigated with Irrigated with Saline Saline -Foul Odor after Cleansing No No -Bioengineered Tissue No No -Bleeding Controlled with Pressure Pressure -Treatment Response Procedure Procedure Tolerated Well Tolerated Well -Offloading Yes Yes -Type of Offloading Surgical Shoe Surgical Shoe -Debridement - Subq, 1st 20sq cm No No 9. LLE MEDIAL -Time 09:34 09:44 -Correct Patient Yes Yes Yes -Correct Side, Site, Position Yes Yes No -Correct Procedure Yes Yes No -Procedure Performed Yes Yes No -Type of Procedure Debridement Debridement -Clinical Debridement Subcutaneous Subcutaneous -Tissue Removed Subcutaneous Subcutaneous -Post Debridement (cm) - Length 0.5 0.4 0 -Post Debridement (cm) - Width 1.0 0.5 0 -Post Debridement (cm) - Depth 0.1 0.1 0 -Total Square (Post) (cm) 0.50 0.20 0 -Area of Debridement (cm) - Length 0.5 0.4 0 -Area of Debridement (cm) - Width 1.0 0.5 0 -Total Square (Area) (cm) 0.50 0.20 0 -Tunneling No No -Undermining/Tunneling No No -Circular Undermining No No -Wound/Ulcer Outcome Not Healed Not Healed Healed- Epithelialized -Ulcer Cleansing Rinsed/ Rinsed/ Irrigated with Irrigated with Saline Saline -Foul Odor after Cleansing No No -Bioengineered Tissue No No -Bleeding Controlled with Pressure Pressure -Treatment Response Procedure Procedure Tolerated Well Tolerated Well -Offloading No No -Debridement - Subq, 1st 20sq cm Yes No 8. L NOLASCO CLUSTER -Time 09:34 -Correct Patient Yes Yes -Correct Side, Site, Position Yes No -Correct Procedure Yes No -Procedure Performed Yes No -Type of Procedure Debridement -Clinical Debridement Subcutaneous -Tissue Removed Subcutaneous -Post Debridement (cm) - Length 1.7 0 -Post Debridement (cm) - Width 1 0 -Post Debridement (cm) - Depth 0.1 0 -Total Square (Post) (cm) 1.7 0 -Area of Debridement (cm) - Length 1.7 0 -Area of Debridement (cm) - Width 1.0 0 -Total Square (Area) (cm) 1.70 0 -Tunneling No -Undermining/Tunneling No -Circular Undermining No -Wound/Ulcer Outcome Not Healed Healed- Epithelialized -Ulcer Cleansing Rinsed/ Irrigated with Saline -Foul Odor after Cleansing No -Bioengineered Tissue No -Bleeding Controlled with Pressure -Treatment Response Procedure Tolerated Well -Offloading No -Debridement - Subq, 1st 20sq cm No 10. R 2nd TOE -Time 09:32 09:41 09:08 -Correct Patient Yes Yes Yes -Correct Side, Site, Position Yes Yes Yes -Correct Procedure Yes Yes Yes -Procedure Performed Yes Yes Yes -Type of Procedure Debridement Debridement Debridement -Clinical Debridement Subcutaneous Subcutaneous Subcutaneous -Tissue Removed Subcutaneous Subcutaneous -Post Debridement (cm) - Length 0.7 1.0 0.7 -Post Debridement (cm) - Width 0.4 0.5 0.3 -Post Debridement (cm) - Depth 0.1 0.1 0.1 -Total Square (Post) (cm) 0.28 0.50 0.21 -Area of Debridement (cm) - Length 0.7 1.0 0.7 -Area of Debridement (cm) - Width 0.4 0.5 0.3 -Total Square (Area) (cm) 0.28 0.50 0.21 -Tunneling No No No -Undermining/Tunneling No No No -Circular Undermining No No No -Wound/Ulcer Outcome Not Healed Not Healed Not Healed -Ulcer Cleansing Rinsed/ Rinsed/ Rinsed/ Irrigated with Irrigated with Irrigated with Saline Saline Saline -Foul Odor after Cleansing No No No -Bioengineered Tissue No No No -Bleeding Controlled with Pressure Pressure Pressure -Treatment Response Procedure Procedure Procedure Tolerated Well Tolerated Well Tolerated Well -Offloading No Yes -Type of Offloading Surgical Shoe -Debridement - Subq, 1st 20sq cm No Yes Yes Pain Scale: 0-10 Numeric Is Patient Pain Free? Yes Yes Yes 10/09/24 08:51 Wound Center Nurse 2 11. 5th TOE LATERAL -Time -Correct Patient -Correct Side, Site, Position -Correct Procedure -Procedure Performed -Type of Procedure -Clinical Debridement -Tissue Removed -Post Debridement (cm) - Length -Post Debridement (cm) - Width -Post Debridement (cm) - Depth -Total Square (Post) (cm) -Area of Debridement (cm) - Length -Area of Debridement (cm) - Width -Total Square (Area) (cm) -Tunneling -Undermining/Tunneling -Circular Undermining -Wound/Ulcer Outcome -Ulcer Cleansing -Foul Odor after Cleansing -Bioengineered Tissue -Bleeding Controlled with -Treatment Response -Offloading -Type of Offloading -Debridement - Subq, 1st 20sq cm 9. LLE MEDIAL -Time -Correct Patient -Correct Side, Site, Position -Correct Procedure -Procedure Performed -Type of Procedure -Clinical Debridement -Tissue Removed -Post Debridement (cm) - Length -Post Debridement (cm) - Width -Post Debridement (cm) - Depth -Total Square (Post) (cm) -Area of Debridement (cm) - Length -Area of Debridement (cm) - Width -Total Square (Area) (cm) -Tunneling -Undermining/Tunneling -Circular Undermining -Wound/Ulcer Outcome -Ulcer Cleansing -Foul Odor after Cleansing -Bioengineered Tissue -Bleeding Controlled with -Treatment Response -Offloading -Debridement - Subq, 1st 20sq cm 8. L NOLASCO CLUSTER -Time -Correct Patient -Correct Side, Site, Position -Correct Procedure -Procedure Performed -Type of Procedure -Clinical Debridement -Tissue Removed -Post Debridement (cm) - Length -Post Debridement (cm) - Width -Post Debridement (cm) - Depth -Total Square (Post) (cm) -Area of Debridement (cm) - Length -Area of Debridement (cm) - Width -Total Square (Area) (cm) -Tunneling -Undermining/Tunneling -Circular Undermining -Wound/Ulcer Outcome -Ulcer Cleansing -Foul Odor after Cleansing -Bioengineered Tissue -Bleeding Controlled with -Treatment Response -Offloading -Debridement - Subq, 1st 20sq cm 10. R 2nd TOE -Time 08:51 -Correct Patient Yes -Correct Side, Site, Position Yes -Correct Procedure Yes -Procedure Performed Yes -Type of Procedure Debridement -Clinical Debridement Subcutaneous -Tissue Removed Subcutaneous -Post Debridement (cm) - Length 0.5 -Post Debridement (cm) - Width 0.5 -Post Debridement (cm) - Depth 0.1 -Total Square (Post) (cm) 0.25 -Area of Debridement (cm) - Length 0.5 -Area of Debridement (cm) - Width 0.5 -Total Square (Area) (cm) 0.25 -Tunneling No -Undermining/Tunneling No -Circular Undermining No -Wound/Ulcer Outcome Not Healed -Ulcer Cleansing Rinsed/ Irrigated with Saline -Foul Odor after Cleansing No -Bioengineered Tissue No -Bleeding Controlled with Pressure -Treatment Response Procedure Tolerated Well -Offloading Yes -Type of Offloading Surgical Shoe -Debridement - Subq, 1st 20sq cm Yes Pain Scale: 0-10 Numeric Is Patient Pain Free? Yes WC - Nurse 3 - General Ulcer D/C NN Start: 09/18/24 09:15 Freq: Status: Active Protocol: Activity Type Activity Date Activity User E-sign Co-sign Detail Recorded Client Recorded Date Recorded By Document 09/18/24 09:56 KW [id number] 09/18/24 09:57 KW Edit Result 09/18/24 09:56 KW (1) [id number] 09/20/24 12:12 KW Document 09/25/24 10:09 RB [id number] 09/25/24 10:10 RB Document 10/02/24 09:38 RB [id number] 10/02/24 09:39 RB Document 10/09/24 09:03 ML [id number] 10/09/24 09:04 ML (1) LEFT LEG - Multi-Layered Wrap Application => Multi-Layer Comp- => Left ($) - Tubular Bandage Double Layer => - Size of Tubigrip Used Size F => - Size F ($) 2 => - Multi-Layer Compression Left (Qty => 1 applied) RIGHT LEG - Multi-Layered Wrap Application Multi-Layer Comp - => Right ($) => - Tubular Bandage => Double Layer - Size of Tubigrip Used => Size F - Size F ($) => 2 09/18/24 09/25/24 10/02/24 09:56 10:09 09:38 Wound Care Center Nurse 3 11. 5th TOE LATERAL -Ulcer Cleansing Rinsed/ Irrigated with Saline -Other Dressing hydrogel hydrogel -Primary Dressing Covered/Secured with Dry Gauze, Dry Gauze, Secured with Secured with Tape Tape 9. LLE MEDIAL -Ulcer Cleansing Rinsed/ Irrigated with Saline -Primary Dressing Applied Aquacel AG 4x4 Aquacel AG 2x2 -Primary Dressing Covered/Secured with Dry Gauze -Aquacel AG 2x2 1 -Aquacel AG 4x4 1 8. L NOLASCO CLUSTER -Other Dressing aquacel ag -Primary Dressing Covered/Secured with Dry Gauze,Dry Gauze & Roll Gauze,Secured with Tape 10. R 2nd TOE -Ulcer Cleansing Rinsed/ Irrigated with Saline -Primary Dressing Applied -Other Dressing hydrogel hydrogel hydrogel -Primary Dressing Covered/Secured with Dry Gauze, Dry Gauze, Dry Gauze Secured with Secured with Tape Tape -Hydrogel bilat LE -Lotion applied to leg before Yes compression wrap -Multi-Layered Wrap Application Multi-Layer Comp - Bilat ($ ) -Multi-Layer Compression Bilat (Qty 1 applied) LEFT LEG -Multi-Layered Wrap Application Multi-Layer Multi-Layer Comp - Left ($) Comp - Left ($) -Multi-Layer Compression Left (Qty 1 1 applied) RIGHT LEG -Tubular Bandage Double Layer Double Layer -Size of Tubigrip Used Size F Size D -Size C ($) -Size D ($) 2 -Size F ($) 2 -Multi-Layer Compression Right (Qty 1 applied) Treatment Response Procedure Tolerated Well Pain Scale: 0-10 Numeric Is Patient Pain Free? Yes Yes Yes WC - Visit Discharge Discharge Condition Stable Stable Stable Ambulatory Status Ambulatory, Ambulatory, Ambulatory, Walker Walker Walker Transportation Private Auto Private Auto Private Auto Medication Reconcilliation completed & No No No provided to patient/care provider Clinical Summary of Care Provided Yes Yes Yes Notes: 2 boxes of unna boots used bilat 10/09/24 09:03 Wound Care Center Nurse 3 11. 5th TOE LATERAL -Ulcer Cleansing -Other Dressing -Primary Dressing Covered/Secured with 9. LLE MEDIAL -Ulcer Cleansing -Primary Dressing Applied -Primary Dressing Covered/Secured with -Aquacel AG 2x2 -Aquacel AG 4x4 8. L NOLASCO CLUSTER -Other Dressing -Primary Dressing Covered/Secured with 10. R 2nd TOE -Ulcer Cleansing Rinsed/ Irrigated with Saline -Primary Dressing Applied C Hydrogel -Other Dressing -Primary Dressing Covered/Secured with Dry Gauze, Secured with Tape -Hydrogel 0 bilat LE -Lotion applied to leg before compression wrap -Multi-Layered Wrap Application -Multi-Layer Compression Bilat (Qty applied) LEFT LEG -Multi-Layered Wrap Application -Multi-Layer Compression Left (Qty applied) RIGHT LEG -Tubular Bandage Single Layer -Size of Tubigrip Used Size C -Size C ($) 1 -Size D ($) -Size F ($) -Multi-Layer Compression Right (Qty applied) Treatment Response Pain Scale: 0-10 Numeric Is Patient Pain Free? Yes WC - Visit Discharge Discharge Condition Ambulatory Status Transportation Medication Reconcilliation completed & provided to patient/care provider Clinical Summary of Care Provided Notes: Assessment/Plan Assessment/Plan (1) Type 2 diabetes mellitus with diabetic polyneuropathy: CODE(S): E11.42 - Type 2 diabetes mellitus with diabetic polyneuropathy QUALIFIERS: Diabetes mellitus chcf insulin use: with terminal press operator use Qualified Code(s): E11.42 - Type 2 diabetes mellitus with diabetic polyneuropathy; Z79.4 - ocean transportation intermediary (current) use of insulin PLAN: Exam performed. Vital signs within normal limits. only 1 wound remains, all others healed Recent x-rays right foot negative for osteomyelitis. Right 2nd toe wound was excisionally debrided down to including level of subcutaneous tissue of all nonviable tissue using 5 mm dermal curette and 15 blade. No topical anesthesia due to neuropathy. Hemostasis obtained with lightcompression. Pre and postdebridement measurements document and nursing notes. Patient will offload right foot wounds with surgical shoe. consider flexor tenotomy right 2nd toe to correct hammertoe which is contributing to neuropathic ulceration. follow up in 1 week (2) Non-pressure chronic ulcer of other part of right foot with fat layer exposed: CODE(S): L97.512 - Non-pressure chronic ulcer of other part of right foot with fat layer exposed (3) Non-pressure chronic ulcer of left calf with fat layer exposed: CODE(S): L97.222 - Non-pressure chronic ulcer of left calf with fat layer exposed 10/09/24 0934 <Electronically signed by Fatemeh Espinosa DPM> Cosigner Signature (if applicable): CC: ~ Signed [facility] Work Phone: [phone]) 148-564905-20-2025 Radiology Diagnostic study [facility]05-20-2025 Progress note Author Fatemeh Espinosa [facility] Note Date/Time October 02, 2024 9:13a m [facility] [address] [place] [id number] Progress Note - Wound Care 10/02/24 0910 MR#: [id number] Acct: [id number] Name: JOSELINE ELLIS Rep #:[id number] 1 : 1950 74 From: Fatemeh Espinosa DPM PCP: Dr. Bernie Reagan MD Status:R EG RCR Location: History of Present Illness Date of Service: 10/02/24 Chief Complaint: Multiple, small superficial ulcerations in the lower extremities bilaterally History of Wound: This 72-year-old white female who presented with bilateral lower extremity ulcerations. They are small in size, but multiple in number. They have been present for a lengthy period of time. 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 The patient has been using silver cell and Alberto wraps. The patient also experiences swelling and edema in her lower extremities. She sleeps in a bed at night. 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 She has been under the care of Dr. Kiran Wolff, plastic surgeon, in this regard. Her recent MRSA infection is said to have been her first and only history of MRSA infections. She underwent surgery on 07/12/22 for surgical preparation right long finger amputation stump ulcer with incision and drainage and excisional debridement MRSA abscess and partial ostectomy middle phalanx for osteomyelitis. Operative tissue cultures positive for Enterobacter cloacae complex and MRSA. Operative bone cultures positive for MRSA and MRSE. She was discharged home on 07/15/22 with a PICC line and IV Vancomycin and oral Cipro. She was seen by ID while hospitalized and was to follow up ID post-discharge. Objective Data Objective Data Vital Signs: Vital Signs Temp Pulse Resp BP O2 Del Method 97.6 F L 126 H 18 157/98 H Room Air 10/02/24 08:44 10/02/24 08:44 10/02/24 08:44 10/02/24 08:44 10/02/24 08:44 Oxygen Delivery Method Room Air Weight: 81.193 kg Body Mass Index (BMI) 32.7 Physical Exam Narrative Vascular: Dorsalis pedis posterior tibial pulses palpable 2 out of 4 to bilateral lower extremity compartments. Some a skin atrophic changes noted bilaterally. Digital hair growth noted bilaterally. +1 pitting edema noted to Vance malleoli regions bilaterally. Neurologic: Light touch and protective sensation absent to bilateral feet. Musculoskeletal: No gross deformity noted muscular strength for the bilateral lower extremity compartments. Dermatologic: Full-thickness ulceration noted to the distal aspect of the right second toe. Healed wounds to lateral aspect of the fifth toe to the right foot. No deep probing undermining or acute signs of infection. Full-thickness ulcerations noted to the anterior medial left leg - healed. No deep probing undermining acute signs of infection noted. Const alert and oriented x3 Debridement Note Debridement Note Post-Debridement Measurements and Additional Note: Post-Debridement Measurements/Treatment WC - Nurse 1 - General Ulcer Assessment Start: 09/18/24 09:15 Freq: Status: Active Protocol: [email or web address] Activity Type Activity Date Activity User E-sign Co-sign Detail Recorded Client Recorded Date Recorded By Document 09/18/24 09:15 RB [id number] 09/18/24 09:18 RB Document 09/25/24 09:10 KW [id number] 09/25/24 09:19 KW Document 10/02/24 08:44 KW [id number] 10/02/24 08:49 KW 09/18/24 09/25/24 10/02/24 09:15 09:10 08:44 - Today's Visit Information Type of service Follow-up Visit Follow-up Visit Follow-up Visit (Physician/PANTOGRAPH WATCHER (Physician/PANTOGRAPH WATCHER (Physician/PANTOGRAPH WATCHER ) ) ) Arrival Mode Ambulatory, Ambulatory, Ambulatory, Walker Walker Walker Transfer Assistance None Patient Identification Verified (Name & Yes Yes Yes ) Patient Requires Transmission-Based No Precautions Height and Weight Body Mass Index (BMI) 32.7 32.7 32.7 BMI Classification Obese Obese Obese Vital Signs Temperature (97.8 F-99.1 F) 96.5 F L 96.3 F L 97.6 F L Temperature Source Temporal Temporal Temporal Pulse Rate (60-100) 136 H 142 H 126 H Pulse Location Monitor Monitor Monitor Respiratory Rate (12-18) 18 18 18 Respiratory rate source Observation Observation Observation Oxygen Delivery Method Room Air Room Air Blood Pressure (90/60-120/80) 126/89 H 145/94 H 157/98 H Blood Pressure Mean (mm Hg) 101 111 117 Source Monitor Monitor Monitor Position Sitting Semi-Fowlers Semi-Fowlers Blood Pressure Location Left Arm Left Arm Left Arm History Since Last Visit- (Skip if this is Patient's initial visit) Have you changed medications since your No No No last visit? Any new allergies or adverse reactions No No No Had a fall/change in ADL's that may No No No increase risk of falls Signs or symptoms of abuse and/or No No No neglect since last visit Have you been in the hospital since your No No No last visit? Has dressing in place as prescribed Yes Yes Yes Has compression in place as prescribed Yes Yes Yes Has offloadiing in place as prescribed N/A Yes Yes Experienced any changes in pain level or No No No management Left Footwear Regular Shoe Regular Shoe Regular Shoe Right Footwear Surgical Shoe Surgical Shoe Surgical Shoe with pressure with pressure with pressure relief insole relief insole relief insole Pain Scale: 0-10 Numeric Is Patient Pain Free? Yes Yes Yes - Nurse 1 - General Ulcer Measurement Start: 09/18/24 09:15 Freq: Status: Active Protocol: Activity Type Activity Date Activity User E-sign Co-sign Detail Recorded Client Recorded Date Recorded By Document 09/18/24 09:15 RB [id number] 09/18/24 09:18 RB Document 09/25/24 09:10 KW [id number] 09/25/24 09:19 KW Document 10/02/24 08:44 KW [id number] 10/02/24 08:49 KW 09/18/24 09/25/24 10/02/24 09:15 09:10 08:44 Wound Center Nurse 1 11. 5th TOE LATERAL -Combined with other wound No -Current Size (cm) - Length 0.1 0.1 0.1 -Current Size (cm) - Width 0.1 0.1 0.1 -Current Size (cm) - Depth 0.1 0.1 0 -Total Square Cm 0.01 0.01 0.01 -Date of Last Picture (Recall this 10/02/24 field) -Photo Taken Yes -Epithelialization Large 67-100% -Undermining/Tunneling No -Circular Undermining No -Exudate Amt None Present Small None Present -Exudate Type Serosanguineous -Wound Margin Distinct, Distinct, Outline Outline Attached Attached -Granulation Amt Large (67-100%) None Present (0 %) -Granulation Quality Alta -Slough/Fibrin Yes -Necrosis Amt Small (1-33%) Large (67-100%) -Necrotic Tissue Type Adherent Slough Adherent Slough -Structure Exposed N/A -Texture (Jessica-wound Skin Appearance) Assessed Assessed,Callus Assessed -Moisture (Jessica-wound Skin Appearance) Assessed Assessed Assessed -Color (Jessica-wound Skin Appearance) Assessed Assessed Assessed -Temperature (Jessica-wound Skin No Abnormality No Abnormality No Abnormality Appearance) (Pt Warm) (Pt Warm) (Pt Warm) -Tenderness on Palpation (Jessica-wound No No No Skin Appearance) -Ulcer Cleansing Wound Cleanser Soap and Water -Foul Odor after Cleansing No No No -Anesthetic Used 5% Lidocaine 5% Lidocaine Gel Gel 9. LLE MEDIAL -Combined with other wound No -Current Size (cm) - Length 0.5 0.5 -Current Size (cm) - Width 0.7 0.4 -Current Size (cm) - Depth 0.1 0.1 -Total Square Cm 0.35 0.20 -Photo Taken Yes -Tunneling No -Undermining/Tunneling No -Circular Undermining No -Exudate Amt Medium Small -Exudate Type Serosanguineous Serosanguineous -Wound Margin Distinct, Distinct, Outline Outline Attached Attached -Granulation Amt Medium (34-66%) Medium (34-66%) -Granulation Quality [place] Red -Slough/Fibrin Yes -Necrosis Amt Small (1-33%) Medium (34-66%) -Necrotic Tissue Type Adherent Slough Adherent Slough -Structure Exposed N/A -Texture (Jessica-wound Skin Appearance) Assessed Assessed -Moisture (Jessica-wound Skin Appearance) Assessed Assessed -Color (Jessica-wound Skin Appearance) Assessed Assessed -Temperature (Jessica-wound Skin No Abnormality No Abnormality Appearance) (Pt Warm) (Pt Warm) -Tenderness on Palpation (Jessica-wound No No Skin Appearance) -Ulcer Cleansing Wound Cleanser Soap and Water -Foul Odor after Cleansing No No -Anesthetic Used 5% Lidocaine 5% Lidocaine Gel Gel 8. L NOLASCO CLUSTER -Combined with other wound No -Current Size (cm) - Length 0.1 0.1 -Current Size (cm) - Width 0.1 0.1 -Current Size (cm) - Depth 0.1 0.1 -Total Square Cm 0.01 0.01 -Photo Taken Yes -Tunneling No -Undermining/Tunneling No -Circular Undermining No -Exudate Amt Medium None Present -Exudate Type Serosanguineous -Wound Margin Distinct, Outline Attached -Granulation Amt Medium (34-66%) Large (67-100%) -Granulation Quality [place] Red -Slough/Fibrin Yes -Necrosis Amt Small (1-33%) -Necrotic Tissue Type Adherent Slough -Structure Exposed N/A -Texture (Jessica-wound Skin Appearance) Assessed Assessed -Moisture (Jessica-wound Skin Appearance) Assessed Assessed -Color (Jessica-wound Skin Appearance) Assessed Assessed -Temperature (Jessica-wound Skin No Abnormality No Abnormality Appearance) (Pt Warm) (Pt Warm) -Tenderness on Palpation (Jessica-wound No No Skin Appearance) -Ulcer Cleansing Wound Cleanser Soap and Water -Foul Odor after Cleansing No No -Anesthetic Used 5% Lidocaine Gel 10. R 2nd TOE -Combined with other wound No -Current Size (cm) - Length 0.3 0.3 0.2 -Current Size (cm) - Width 0.7 0.5 0.5 -Current Size (cm) - Depth 0.1 0.1 0.2 -Total Square Cm 0.21 0.15 0.10 -Date of Last Picture (Recall this 10/02/24 field) -Photo Taken Yes -Tunneling No -Undermining/Tunneling No -Circular Undermining No -Exudate Amt Medium Small Small -Exudate Type Serosanguineous Serosanguineous Serosanguineous -Wound Margin Distinct, Distinct, Distinct, Outline Outline Outline Attached Attached Attached -Granulation Amt Medium (34-66%) Large (67-100%) Large (67-100%) -Granulation Quality [place] Red Red -Slough/Fibrin Yes -Necrosis Amt Small (1-33%) -Necrotic Tissue Type Adherent Slough -Structure Exposed N/A -Texture (Jessica-wound Skin Appearance) Assessed Assessed,Callus Assessed -Moisture (Jessica-wound Skin Appearance) Assessed Assessed Assessed -Color (Jessica-wound Skin Appearance) Assessed Assessed Assessed -Temperature (Jessica-wound Skin No Abnormality No Abnormality No Abnormality Appearance) (Pt Warm) (Pt Warm) (Pt Warm) -Tenderness on Palpation (Jessica-wound No No No Skin Appearance) -Ulcer Cleansing Wound Cleanser Soap and Water Rinsed/ Irrigated with Saline -Foul Odor after Cleansing No No -Anesthetic Used 5% Lidocaine 5% Lidocaine 5% Lidocaine Gel Gel Gel Lower Limb Edema Present Yes Right Calf (cm) 34.5 33.5 33.8 Right Ankle (cm) 20.5 19 20 Left Calf (cm) 34.5 33 34 Left Ankle (cm) 20.5 20 19.5 WC - Nurse 2 - General Ulcer CM Notes Start: 09/18/24 09:15 Freq: Status: Active Protocol: Activity Type Activity Date Activity User E-sign Co-sign Detail Recorded Client Recorded Date Recorded By Document 09/18/24 09:30 [id number] 09/18/24 09:35 Document 09/25/24 09:40 JF [id number] 09/25/24 09:45 Document 10/02/24 09:08 JF [id number] 10/02/24 09:09 09/18/24 09/25/24 10/02/24 09:30 09:40 09:08 Wound Center Nurse 2 11. 5th TOE LATERAL -Time 09:32 09:42 -Correct Patient Yes Yes Yes -Correct Side, Site, Position Yes Yes No -Correct Procedure Yes Yes No -Procedure Performed Yes Yes No -Type of Procedure Debridement Debridement -Clinical Debridement Subcutaneous Subcutaneous -Tissue Removed Subcutaneous Subcutaneous -Post Debridement (cm) - Length 0.5 0.5 0 -Post Debridement (cm) - Width 0.5 0.6 0 -Post Debridement (cm) - Depth 0.2 0.1 0 -Total Square (Post) (cm) 0.25 0.30 0 -Area of Debridement (cm) - Length 0.5 0.5 0 -Area of Debridement (cm) - Width 0.5 0.6 0 -Total Square (Area) (cm) 0.25 0.30 0 -Tunneling No No -Undermining/Tunneling No No -Circular Undermining No No -Wound/Ulcer Outcome Not Healed Not Healed Healed- Epithelialized -Ulcer Cleansing Rinsed/ Rinsed/ Irrigated with Irrigated with Saline Saline -Foul Odor after Cleansing No No -Bioengineered Tissue No No -Bleeding Controlled with Pressure Pressure -Treatment Response Procedure Procedure Tolerated Well Tolerated Well -Offloading Yes Yes -Type of Offloading Surgical Shoe Surgical Shoe -Debridement - Subq, 1st 20sq cm No No 9. LLE MEDIAL -Time : 09:44 -Correct Patient Yes Yes Yes -Correct Side, Site, Position Yes Yes No -Correct Procedure Yes Yes No -Procedure Performed Yes Yes No -Type of Procedure Debridement Debridement -Clinical Debridement Subcutaneous Subcutaneous -Tissue Removed Subcutaneous Subcutaneous -Post Debridement (cm) - Length 0.5 0.4 0 -Post Debridement (cm) - Width 1.0 0.5 0 -Post Debridement (cm) - Depth 0.1 0.1 0 -Total Square (Post) (cm) 0.50 0.20 0 -Area of Debridement (cm) - Length 0.5 0.4 0 -Area of Debridement (cm) - Width 1.0 0.5 0 -Total Square (Area) (cm) 0.50 0.20 0 -Tunneling No No -Undermining/Tunneling No No -Circular Undermining No No -Wound/Ulcer Outcome Not Healed Not Healed Healed- Epithelialized -Ulcer Cleansing Rinsed/ Rinsed/ Irrigated with Irrigated with Saline Saline -Foul Odor after Cleansing No No -Bioengineered Tissue No No -Bleeding Controlled with Pressure Pressure -Treatment Response Procedure Procedure Tolerated Well Tolerated Well -Offloading No No -Debridement - Subq, 1st 20sq cm Yes No 8. L NOLASCO CLUSTER -Time :34 -Correct Patient Yes Yes -Correct Side, Site, Position Yes No -Correct Procedure Yes No -Procedure Performed Yes No -Type of Procedure Debridement -Clinical Debridement Subcutaneous -Tissue Removed Subcutaneous -Post Debridement (cm) - Length 1.7 0 -Post Debridement (cm) - Width 1 0 -Post Debridement (cm) - Depth 0.1 0 -Total Square (Post) (cm) 1.7 0 -Area of Debridement (cm) - Length 1.7 0 -Area of Debridement (cm) - Width 1.0 0 -Total Square (Area) (cm) 1.70 0 -Tunneling No -Undermining/Tunneling No -Circular Undermining No -Wound/Ulcer Outcome Not Healed Healed- Epithelialized -Ulcer Cleansing Rinsed/ Irrigated with Saline -Foul Odor after Cleansing No -Bioengineered Tissue No -Bleeding Controlled with Pressure -Treatment Response Procedure Tolerated Well -Offloading No -Debridement - Subq, 1st 20sq cm No 10. R 2nd TOE -Time 09:32 09:41 09:08 -Correct Patient Yes Yes Yes -Correct Side, Site, Position Yes Yes Yes -Correct Procedure Yes Yes Yes -Procedure Performed Yes Yes Yes -Type of Procedure Debridement Debridement Debridement -Clinical Debridement Subcutaneous Subcutaneous Subcutaneous -Tissue Removed Subcutaneous Subcutaneous -Post Debridement (cm) - Length 0.7 1.0 0.7 -Post Debridement (cm) - Width 0.4 0.5 0.3 -Post Debridement (cm) - Depth 0.1 0.1 0.1 -Total Square (Post) (cm) 0.28 0.50 0.21 -Area of Debridement (cm) - Length 0.7 1.0 0.7 -Area of Debridement (cm) - Width 0.4 0.5 0.3 -Total Square (Area) (cm) 0.28 0.50 0.21 -Tunneling No No No -Undermining/Tunneling No No No -Circular Undermining No No No -Wound/Ulcer Outcome Not Healed Not Healed Not Healed -Ulcer Cleansing Rinsed/ Rinsed/ Rinsed/ Irrigated with Irrigated with Irrigated with Saline Saline Saline -Foul Odor after Cleansing No No No -Bioengineered Tissue No No No -Bleeding Controlled with Pressure Pressure Pressure -Treatment Response Procedure Procedure Procedure Tolerated Well Tolerated Well Tolerated Well -Offloading No Yes -Type of Offloading Surgical Shoe -Debridement - Subq, 1st 20sq cm No Yes Yes Pain Scale: 0-10 Numeric Is Patient Pain Free? Yes Yes Yes WC - Nurse 3 - General Ulcer D/C NN Start: 09/18/24 09:15 Freq: Status: Active Protocol: Activity Type Activity Date Activity User E-sign Co-sign Detail Recorded Client Recorded Date Recorded By Document 09/18/24 09:56 KW [id number] 09/18/24 09:57 KW Edit Result 09/18/24 09:56 KW (1) [id number] 09/20/24 12:12 KW Document 09/25/24 10:09 RB [id number] 09/25/24 10:10 RB (1) LEFT LEG - Multi-Layered Wrap Application => Multi-Layer Comp- => Left ($) - Tubular Bandage Double Layer => - Size of Tubigrip Used Size F => - Size F ($) 2 => - Multi-Layer Compression Left (Qty => 1 applied) RIGHT LEG - Multi-Layered Wrap Application Multi-Layer Comp - => Right ($) => - Tubular Bandage => Double Layer - Size of Tubigrip Used => Size F - Size F ($) => 2 09/18/24 09/25/24 09:56 10:09 Wound Care Center Nurse 3 11. 5th TOE LATERAL -Ulcer Cleansing Rinsed/ Irrigated with Saline -Other Dressing hydrogel hydrogel -Primary Dressing Covered/Secured with Dry Gauze, Dry Gauze, Secured with Secured with Tape Tape 9. LLE MEDIAL -Ulcer Cleansing Rinsed/ Irrigated with Saline -Primary Dressing Applied Aquacel AG 4x4 Aquacel AG 2x2 -Primary Dressing Covered/Secured with Dry Gauze -Aquacel AG 2x2 1 -Aquacel AG 4x4 1 8. L NOLASCO CLUSTER -Other Dressing aquacel ag -Primary Dressing Covered/Secured with Dry Gauze,Dry Gauze & Roll Gauze,Secured with Tape 10. R 2nd TOE -Ulcer Cleansing Rinsed/ Irrigated with Saline -Other Dressing hydrogel hydrogel -Primary Dressing Covered/Secured with Dry Gauze, Dry Gauze, Secured with Secured with Tape Tape LEFT LEG -Multi-Layered Wrap Application Multi-Layer Multi-Layer Comp - Left ($) Comp - Left ($) -Multi-Layer Compression Left (Qty 1 1 applied) RIGHT LEG -Tubular Bandage Double Layer Double Layer -Size of Tubigrip Used Size F Size D -Size D ($) 2 -Size F ($) 2 -Multi-Layer Compression Right (Qty 1 applied) Treatment Response Procedure Tolerated Well Pain Scale: 0-10 Numeric Is Patient Pain Free? Yes Yes WC - Visit Discharge Discharge Condition Stable Stable Ambulatory Status Ambulatory, Ambulatory, Walker Walker Transportation Private Auto Private Auto Medication Reconcilliation completed & No No provided to patient/care provider Clinical Summary of Care Provided Yes Yes Assessment/Plan Assessment/Plan (1) Type 2 diabetes mellitus with diabetic polyneuropathy: CODE(S): E11.42 - Type 2 diabetes mellitus with diabetic polyneuropathy QUALIFIERS: Diabetes mellitus chcf insulin use: with terminal press operator use Qualified Code(s): E11.42 - Type 2 diabetes mellitus with diabetic polyneuropathy; Z79.4 - ocean transportation intermediary (current) use of insulin PLAN: Exam performed. Vital signs within normal limits. only 1 wound remains, all others healed Recent x-rays right foot negative for osteomyelitis. Right 2nd toe wound was excisionally debrided down to including level of subcutaneous tissue of all nonviable tissue using 5 mm dermal curette and 15 blade. No topical anesthesia due to neuropathy. Hemostasis obtained with lightcompression. Pre and postdebridement measurements document and nursing notes. Patient will offload right foot wounds with surgical shoe. follow up in 1 week (2) Non-pressure chronic ulcer of other part of right foot with fat layer exposed: CODE(S): L97.512 - Non-pressure chronic ulcer of other part of right foot with fat layer exposed (3) Non-pressure chronic ulcer of left calf with fat layer exposed: CODE(S): L97.222 - Non-pressure chronic ulcer of left calf with fat layer exposed 10/02/24912 <Electronically signed by Fatemeh Espinosa DPM> Cosigner Signature (if applicable): CC: ~ Signed [facility] Work Phone: [phone] Progress note Author Fatemeh Espinosa [facility] Note Date/Time October 13, 2024 11:59 pm [facility] [address] [place] [address] Progress Note - Wound Care 09/25/24 0946 MR#: [id number] Acct: [id number] Name: JOSELINE ELLIS Rep #:[id number] 1 : 1950 74 From: Fatemeh Esipnosa DPM PCP: Dr. Bernie Reagan MD Status:R EG RCR Location: History of Present Illness Date of Service: 09/25/24 Chief Complaint: Multiple, small superficial ulcerations in the lower extremities bilaterally History of Wound: This 72-year-old white female who presented with bilateral lower extremity ulcerations. They are small in size, but multiple in number. They have been present for a lengthy period of time. 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 The patient has been using silver cell and Alberto wraps. The patient also experiences swelling and edema in her lower extremities. She sleeps in a bed at night. 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 She has been under the care of Dr. Kiran Wolff, plastic surgeon, in this regard. Her recent MRSA infection is said to have been her first and only history of MRSA infections. She underwent surgery on 07/12/22 for surgical preparation right long finger amputation stump ulcer with incision and drainage and excisional debridement MRSA abscess and partial ostectomy middle phalanx for osteomyelitis. Operative tissue cultures positive for Enterobacter cloacae complex and MRSA. Operative bone cultures positive for MRSA and MRSE. She was discharged home on 07/15/22 with a PICC line and IV Vancomycin and oral Cipro. She was seen by ID while hospitalized and was to follow up ID post-discharge. Objective Data Objective Data Vital Signs: Vital Signs Temp Pulse Resp BP O2 Del Method 96.3 F L 142 H 18 145/94 H Room Air 09/25/24 09:10 09/25/24 09:10 09/25/24 09:10 09/25/24 09:10 09/25/24 09:10 Oxygen Delivery Method Room Air Weight: 81.193 kg Body Mass Index (BMI) 32.7 Physical Exam Narrative Vascular: Dorsalis pedis posterior tibial pulses palpable 2 out of 4 to bilateral lower extremity compartments. Some a skin atrophic changes noted bilaterally. Digital hair growth noted bilaterally. +1 pitting edema noted to Vance malleoli regions bilaterally. Neurologic: Light touch and protective sensation absent to bilateral feet. Musculoskeletal: No gross deformity noted muscular strength for the bilateral lower extremity compartments. Dermatologic: Full-thickness ulceration noted to the distal aspect of the right second toe and the lateral aspect of the fifth toe to the right foot. No deep probing undermining or acute signs of infection. Full-thickness ulcerations noted to the anterior medial left leg. No deep probing undermining acute signs of infection noted. Const alert and oriented x3 Debridement Note Debridement Note Post-Debridement Measurements and Additional Note: Post-Debridement Measurements/Treatment - Nurse 1 - General Ulcer Assessment Start: 09/18/24 09:15 Freq: Status: Active Protocol: [email or web address].LOWEXT Activity Type Activity Date Activity User E-sign Co-sign Detail Recorded Client Recorded Date Recorded By Document 09/18/24 09:15 RB [id number] 09/18/24 09:18 RB Document 09/25/24 09:10 KW [id number] 09/25/24 09:19 KW 09/18/24 09/25/24 09:15 09:10 - Today's Visit Information Type of service Follow-up Visit Follow-up Visit (Physician/PANTOGRAPH WATCHER (Physician/PANTOGRAPH WATCHER ) ) Arrival Mode Ambulatory, Ambulatory, Walker Walker Transfer Assistance None Patient Identification Verified (Name & Yes Yes ) Patient Requires Transmission-Based No Precautions Height and Weight Body Mass Index (BMI) 32.7 32.7 BMI Classification Obese Obese Vital Signs Temperature (97.8 F-99.1 F) 96.5 F L 96.3 F L Temperature Source Temporal Temporal Pulse Rate (60-100) 136 H 142 H Pulse Location Monitor Monitor Respiratory Rate (12-18) 18 18 Respiratory rate source Observation Observation Oxygen Delivery Method Room Air Blood Pressure (90/60-120/80) 126/89 H 145/94 H Blood Pressure Mean (mm Hg) 101 111 Source Monitor Monitor Position Sitting Semi-Fowlers Blood Pressure Location Left Arm Left Arm History Since Last Visit- (Skip if this is Patient's initial visit) Have you changed medications since your No No last visit? Any new allergies or adverse reactions No No Had a fall/change in ADL's that may No No increase risk of falls Signs or symptoms of abuse and/or No No neglect since last visit Have you been in the hospital since your No No last visit? Has dressing in place as prescribed Yes Yes Has compression in place as prescribed Yes Yes Has offloadiing in place as prescribed N/A Yes Experienced any changes in pain level or No No management Left Footwear Regular Shoe Regular Shoe Right Footwear Surgical Shoe Surgical Shoe with pressure with pressure relief insole relief insole Pain Scale: 0-10 Numeric Is Patient Pain Free? Yes Yes WC - Nurse 1 - General Ulcer Measurement Start: 09/18/24 09:15 Freq: Status: Active Protocol: Activity Type Activity Date Activity User E-sign Co-sign Detail Recorded Client Recorded Date Recorded By Document 09/18/24 09:15 RB [id number] 09/18/24 09:18 RB Document 09/25/24 09:10 KW [id number] 09/25/24 09:19 KW 09/18/24 09/25/24 09:15 09:10 Wound Center Nurse 1 8. L NOLASCO CLUSTER -Combined with other wound No -Current Size (cm) - Length 0.1 0.1 -Current Size (cm) - Width 0.1 0.1 -Current Size (cm) - Depth 0.1 0.1 -Total Square Cm 0.01 0.01 -Photo Taken Yes -Tunneling No -Undermining/Tunneling No -Circular Undermining No -Exudate Amt Medium None Present -Exudate Type Serosanguineous -Wound Margin Distinct, Outline Attached -Granulation Amt Medium (34-66%) Large (67-100%) -Granulation Quality [place] Red -Slough/Fibrin Yes -Necrosis Amt Small (1-33%) -Necrotic Tissue Type Adherent Slough -Structure Exposed N/A -Texture (Jessica-wound Skin Appearance) Assessed Assessed -Moisture (Jessica-wound Skin Appearance) Assessed Assessed -Color (Jessica-wound Skin Appearance) Assessed Assessed -Temperature (Jessica-wound Skin No Abnormality No Abnormality Appearance) (Pt Warm) (Pt Warm) -Tenderness on Palpation (Jessica-wound No No Skin Appearance) -Ulcer Cleansing Wound Cleanser Soap and Water -Foul Odor after Cleansing No No -Anesthetic Used 5% Lidocaine Gel 11. 5th TOE LATERAL -Combined with other wound No -Current Size (cm) - Length 0.1 0.1 -Current Size (cm) - Width 0.1 0.1 -Current Size (cm) - Depth 0.1 0.1 -Total Square Cm 0.01 0.01 -Photo Taken Yes -Epithelialization Large 67-100% -Undermining/Tunneling No -Circular Undermining No -Exudate Amt None Present Small -Exudate Type Serosanguineous -Wound Margin Distinct, Distinct, Outline Outline Attached Attached -Granulation Amt Large (67-100%) None Present (0 %) -Granulation Quality Alta -Slough/Fibrin Yes -Necrosis Amt Small (1-33%) Large (67-100%) -Necrotic Tissue Type Adherent Slough Adherent Slough -Structure Exposed N/A -Texture (Jessica-wound Skin Appearance) Assessed Assessed,Callus -Moisture (Jessica-wound Skin Appearance) Assessed Assessed -Color (Jessica-wound Skin Appearance) Assessed Assessed -Temperature (Jessica-wound Skin No Abnormality No Abnormality Appearance) (Pt Warm) (Pt Warm) -Tenderness on Palpation (Jessica-wound No No Skin Appearance) -Ulcer Cleansing Wound Cleanser Soap and Water -Foul Odor after Cleansing No No -Anesthetic Used 5% Lidocaine 5% Lidocaine Gel Gel 10. R 2nd TOE -Combined with other wound No -Current Size (cm) - Length 0.3 0.3 -Current Size (cm) - Width 0.7 0.5 -Current Size (cm) - Depth 0.1 0.1 -Total Square Cm 0.21 0.15 -Photo Taken Yes -Tunneling No -Undermining/Tunneling No -Circular Undermining No -Exudate Amt Medium Small -Exudate Type Serosanguineous Serosanguineous -Wound Margin Distinct, Distinct, Outline Outline Attached Attached -Granulation Amt Medium (34-66%) Large (67-100%) -Granulation Quality [place] Red -Slough/Fibrin Yes -Necrosis Amt Small (1-33%) -Necrotic Tissue Type Adherent Slough -Structure Exposed N/A -Texture (Jessica-wound Skin Appearance) Assessed Assessed,Callus -Moisture (Jessica-wound Skin Appearance) Assessed Assessed -Color (Jessica-wound Skin Appearance) Assessed Assessed -Temperature (Jessica-wound Skin No Abnormality No Abnormality Appearance) (Pt Warm) (Pt Warm) -Tenderness on Palpation (Jessica-wound No No Skin Appearance) -Ulcer Cleansing Wound Cleanser Soap and Water -Foul Odor after Cleansing No No -Anesthetic Used 5% Lidocaine 5% Lidocaine Gel Gel 9. LLE MEDIAL -Combined with other wound No -Current Size (cm) - Length 0.5 0.5 -Current Size (cm) - Width 0.7 0.4 -Current Size (cm) - Depth 0.1 0.1 -Total Square Cm 0.35 0.20 -Photo Taken Yes -Tunneling No -Undermining/Tunneling No -Circular Undermining No -Exudate Amt Medium Small -Exudate Type Serosanguineous Serosanguineous -Wound Margin Distinct, Distinct, Outline Outline Attached Attached -Granulation Amt Medium (34-66%) Medium (34-66%) -Granulation Quality [place] Red -Slough/Fibrin Yes -Necrosis Amt Small (1-33%) Medium (34-66%) -Necrotic Tissue Type Adherent Slough Adherent Slough -Structure Exposed N/A -Texture (Jessica-wound Skin Appearance) Assessed Assessed -Moisture (Jessica-wound Skin Appearance) Assessed Assessed -Color (Jessica-wound Skin Appearance) Assessed Assessed -Temperature (Jsesica-wound Skin No Abnormality No Abnormality Appearance) (Pt Warm) (Pt Warm) -Tenderness on Palpation (Jessica-wound No No Skin Appearance) -Ulcer Cleansing Wound Cleanser Soap and Water -Foul Odor after Cleansing No No -Anesthetic Used 5% Lidocaine 5% Lidocaine Gel Gel Lower Limb Edema Present Yes Right Calf (cm) 34.5 33.5 Right Ankle (cm) 20.5 19 Left Calf (cm) 34.5 33 Left Ankle (cm) 20.5 20 - Nurse 2 - General Ulcer CM Notes Start: 09/18/24 09:15 Freq: Status: Active Protocol: Activity Type Activity Date Activity User E-sign Co-sign Detail Recorded Client Recorded Date Recorded By Document 09/18/24 09:30 [id number] 09/18/24 09:35 Document 09/25/24 09:40 [id number] 09/25/24 09:45 09/18/24 09/25/24 09:30 09:40 Wound Center Nurse 2 8. L NOLASCO CLUSTER -Time 09:34 -Correct Patient Yes Yes -Correct Side, Site, Position Yes No -Correct Procedure Yes No -Procedure Performed Yes No -Type of Procedure Debridement -Clinical Debridement Subcutaneous -Tissue Removed Subcutaneous -Post Debridement (cm) - Length 1.7 0 -Post Debridement (cm) - Width 1 0 -Post Debridement (cm) - Depth 0.1 0 -Total Square (Post) (cm) 1.7 0 -Area of Debridement (cm) - Length 1.7 0 -Area of Debridement (cm) - Width 1.0 0 -Total Square (Area) (cm) 1.70 0 -Tunneling No -Undermining/Tunneling No -Circular Undermining No -Wound/Ulcer Outcome Not Healed Healed- Epithelialized -Ulcer Cleansing Rinsed/ Irrigated with Saline -Foul Odor after Cleansing No -Bioengineered Tissue No -Bleeding Controlled with Pressure -Treatment Response Procedure Tolerated Well -Offloading No -Debridement - Subq, 1st 20sq cm No 11. 5th TOE LATERAL -Time 09: 09:42 -Correct Patient Yes Yes -Correct Side, Site, Position Yes Yes -Correct Procedure Yes Yes -Procedure Performed Yes Yes -Type of Procedure Debridement Debridement -Clinical Debridement Subcutaneous Subcutaneous -Tissue Removed Subcutaneous Subcutaneous -Post Debridement (cm) - Length 0.5 0.5 -Post Debridement (cm) - Width 0.5 0.6 -Post Debridement (cm) - Depth 0.2 0.1 -Total Square (Post) (cm) 0.25 0.30 -Area of Debridement (cm) - Length 0.5 0.5 -Area of Debridement (cm) - Width 0.5 0.6 -Total Square (Area) (cm) 0.25 0.30 -Tunneling No No -Undermining/Tunneling No No -Circular Undermining No No -Wound/Ulcer Outcome Not Healed Not Healed -Ulcer Cleansing Rinsed/ Rinsed/ Irrigated with Irrigated with Saline Saline -Foul Odor after Cleansing No No -Bioengineered Tissue No No -Bleeding Controlled with Pressure Pressure -Treatment Response Procedure Procedure Tolerated Well Tolerated Well -Offloading Yes Yes -Type of Offloading Surgical Shoe Surgical Shoe -Debridement - Subq, 1st 20sq cm No No 10. R 2nd TOE -Time : 09:41 -Correct Patient Yes Yes -Correct Side, Site, Position Yes Yes -Correct Procedure Yes Yes -Procedure Performed Yes Yes -Type of Procedure Debridement Debridement -Clinical Debridement Subcutaneous Subcutaneous -Tissue Removed Subcutaneous Subcutaneous -Post Debridement (cm) - Length 0.7 1.0 -Post Debridement (cm) - Width 0.4 0.5 -Post Debridement (cm) - Depth 0.1 0.1 -Total Square (Post) (cm) 0.28 0.50 -Area of Debridement (cm) - Length 0.7 1.0 -Area of Debridement (cm) - Width 0.4 0.5 -Total Square (Area) (cm) 0.28 0.50 -Tunneling No No -Undermining/Tunneling No No -Circular Undermining No No -Wound/Ulcer Outcome Not Healed Not Healed -Ulcer Cleansing Rinsed/ Rinsed/ Irrigated with Irrigated with Saline Saline -Foul Odor after Cleansing No No -Bioengineered Tissue No No -Bleeding Controlled with Pressure Pressure -Treatment Response Procedure Procedure Tolerated Well Tolerated Well -Offloading No Yes -Type of Offloading Surgical Shoe -Debridement - Subq, 1st 20sq cm No Yes 9. LLE MEDIAL -Time 09:34 09:44 -Correct Patient Yes Yes -Correct Side, Site, Position Yes Yes -Correct Procedure Yes Yes -Procedure Performed Yes Yes -Type of Procedure Debridement Debridement -Clinical Debridement Subcutaneous Subcutaneous -Tissue Removed Subcutaneous Subcutaneous -Post Debridement (cm) - Length 0.5 0.4 -Post Debridement (cm) - Width 1.0 0.5 -Post Debridement (cm) - Depth 0.1 0.1 -Total Square (Post) (cm) 0.50 0.20 -Area of Debridement (cm) - Length 0.5 0.4 -Area of Debridement (cm) - Width 1.0 0.5 -Total Square (Area) (cm) 0.50 0.20 -Tunneling No No -Undermining/Tunneling No No -Circular Undermining No No -Wound/Ulcer Outcome Not Healed Not Healed -Ulcer Cleansing Rinsed/ Rinsed/ Irrigated with Irrigated with Saline Saline -Foul Odor after Cleansing No No -Bioengineered Tissue No No -Bleeding Controlled with Pressure Pressure -Treatment Response Procedure Procedure Tolerated Well Tolerated Well -Offloading No No -Debridement - Subq, 1st 20sq cm Yes No Pain Scale: 0-10 Numeric Is Patient Pain Free? Yes Yes WC - Nurse 3 - General Ulcer D/C NN Start: 09/18/24 09:15 Freq: Status: Active Protocol: Activity Type Activity Date Activity User E-sign Co-sign Detail Recorded Client Recorded Date Recorded By Document 09/18/24 09:56 KW [id number] 09/18/24 09:57 KW Edit Result 09/18/24 09:56 KW (1) [id number] 09/20/24 12:12 KW (1) LEFT LEG - Multi-Layered Wrap Application => Multi-Layer Comp- => Left ($) - Tubular Bandage Double Layer => - Size of Tubigrip Used Size F => - Size F ($) 2 => - Multi-Layer Compression Left (Qty => 1 applied) RIGHT LEG - Multi-Layered Wrap Application Multi-Layer Comp - => Right ($) => - Tubular Bandage => Double Layer - Size of Tubigrip Used => Size F - Size F ($) => 2 09/18/24 09:56 Wound Care Center Nurse 3 8. L NOLASCO CLUSTER -Other Dressing aquacel ag -Primary Dressing Covered/Secured with Dry Gauze,Dry Gauze & Roll Gauze,Secured with Tape 11. 5th TOE LATERAL -Other Dressing hydrogel -Primary Dressing Covered/Secured with Dry Gauze, Secured with Tape 10. R 2nd TOE -Other Dressing hydrogel -Primary Dressing Covered/Secured with Dry Gauze, Secured with Tape 9. LLE MEDIAL -Primary Dressing Applied Aquacel AG 4x4 -Primary Dressing Covered/Secured with Dry Gauze -Aquacel AG 4x4 1 LEFT LEG -Multi-Layered Wrap Application Multi-Layer Comp - Left ($) -Multi-Layer Compression Left (Qty 1 applied) RIGHT LEG -Tubular Bandage Double Layer -Size of Tubigrip Used Size F -Size F ($) 2 -Multi-Layer Compression Right (Qty 1 applied) Pain Scale: 0-10 Numeric Is Patient Pain Free? Yes WC - Visit Discharge Discharge Condition Stable Ambulatory Status Ambulatory, Walker Transportation Private Auto Medication Reconcilliation completed & No provided to patient/care provider Clinical Summary of Care Provided Yes Assessment/Plan Assessment/Plan (1) Type 2 diabetes mellitus with diabetic polyneuropathy: CODE(S): E11.42 - Type 2 diabetes mellitus with diabetic polyneuropathy QUALIFIERS: Diabetes mellitus chcf insulin use: with terminal press operator use Qualified Code(s): E11.42 - Type 2 diabetes mellitus with diabetic polyneuropathy; Z79.4 - retirement (current) use of insulin PLAN: Exam performed. Vital signs within normal limits. Recent x-rays right foot negative for osteomyelitis. 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 Bilateral lower extremities were excisionally debrided down to including level of subcutaneous tissue of all nonviable tissue using 5 mm dermal curette and 15 blade. No topical anesthesia due to neuropathy. Hemostasis obtained with lightcompression. Pre and postdebridement measurements document and nursing notes. Patient will offload right foot wounds with surgical shoe. Dress daily with hydrogel dry sterile dressing Tubigrip to right lower extremity. Left lower extremity will dress with silver alginate and 3M compression wrap. Patient willfollow-up weekly (2) Non-pressure chronic ulcer of other part of right foot with fat layer exposed: CODE(S): L97.512 - Non-pressure chronic ulcer of other part of right foot with fat layer exposed (3) Non-pressure chronic ulcer of left calf with fat layer exposed: CODE(S): L97.222 - Non-pressure chronic ulcer of left calf with fat layer exposed 09/25/24 0946 <Electronically signed by Fatemeh Espinosa DPM> Cosigner Signature (if applicable): CC: ~ Signed [facility] Work Phone: 1(519) 754-492705-06-2025 Progress note Author Fatemeh Espinosa [facility] Note Date/Time October 13, 2024 11:59 pm [facility] [address] [place] [id number] Progress Note - Wound Care 09/18/24 1027 MR#: [id number] Acct: [id number] Name: JOSELINE ELLIS Rep #:[id number] 4 : 1950 74 From: Fatemeh Espinosa DPM PCP: Dr. Bernie Reagan MD [facility] Location: History of Present Illness Date of Service: 09/18/24 Chief Complaint: Multiple, small superficial ulcerations in the lower extremities bilaterally History of Wound: This 72-year-old white female who presented with bilateral lower extremity ulcerations. They are small in size, but multiple in number. They have been present for a lengthy period of time. 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 The patient has been using silver cell and Alberto wraps. The patient also experiences swelling and edema in her lower extremities. She sleeps in a bed at night. 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 She has been under the care of Dr. Kiran Wolff, plastic surgeon, in this regard. Her recent MRSA infection is said to have been her first and only history of MRSA infections. She underwent surgery on 07/12/22 for surgical preparation right long finger amputation stump ulcer with incision and drainage and excisional debridement MRSA abscess and partial ostectomy middle phalanx for osteomyelitis. Operative tissue cultures positive for Enterobacter cloacae complex and MRSA. Operative bone cultures positive for MRSA and MRSE. She was discharged home on 07/15/22 with a PICC line and IV Vancomycin and oral Cipro. She was seen by ID while hospitalized and was to follow up ID post-discharge. Objective Data Objective Data Vital Signs: Vital Signs Temp Pulse Resp BP 96.5 F L 136 H 18 126/89 H 09/18/24 09:15 09/18/24 09:15 09/18/24 09:15 09/18/24 09:15 Weight: 81.193 kg Body Mass Index (BMI) 32.7 Physical Exam Narrative Vascular: Dorsalis pedis posterior tibial pulses palpable 2 out of 4 to bilateral lower extremity compartments. Some a skin atrophic changes noted bilaterally. Digital hair growth noted bilaterally. +1 pitting edema noted to Vance malleoli regions bilaterally. Neurologic: Light touch and protective sensation absent to bilateral feet. Musculoskeletal: No gross deformity noted muscular strength for the bilateral lower extremity compartments. Dermatologic: Full-thickness ulceration noted to the distal aspect of the right second toe and the lateral aspect of the fifth toe to the right foot. No deep probing undermining or acute signs of infection. Full-thickness ulcerations noted to the anterior medial left leg. No deep probing undermining acute signs of infection noted. 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 ) Arrival Mode Ambulatory, Walker Transfer Assistance None Patient Identification Verified (Name & Yes ) Patient Requires Transmission-Based No Precautions Height and Weight Body Mass Index (BMI) 32.7 BMI Classification Obese Vital Signs Temperature (97.8 F-99.1 F) 96.5 F L Temperature Source Temporal Pulse Rate (60-100) 136 H Pulse Location Monitor Respiratory Rate (12-18) 18 Respiratory rate source Observation Blood Pressure (90/60-120/80) 126/89 H Blood Pressure Mean (mm Hg) 101 Source Monitor Position Sitting Blood Pressure Location Left Arm History Since Last Visit- (Skip if this is Patient's initial visit) Have you changed medications since your No last visit? Any new allergies or adverse reactions No Had a fall/change in ADL's that may No increase risk of falls Signs or symptoms of abuse and/or No neglect since last visit Have you been in the hospital since your No last visit? Has dressing in place as prescribed Yes Has compression in place as prescribed Yes Has offloadiing in place as prescribed N/A Experienced any changes in pain level or No management Left Footwear Regular Shoe Right Footwear Surgical Shoe with pressure relief insole Pain Scale: 0-10 Numeric Is Patient Pain Free? Yes WC - Nurse 1 - General Ulcer Measurement Start: 09/18/24 09:15 Freq: Status: Active Protocol: Activity Type Activity Date Activity User E-sign Co-sign Detail Recorded Client Recorded Date Recorded By Document 09/18/24 09:15 MEMO [id number] 09/18/24 09:18 RB 09/18/24 09:15 Wound Center Nurse 1 11. 5th TOE LATERAL -Combined with other wound No -Current Size (cm) - Length 0.1 -Current Size (cm) - Width 0.1 -Current Size (cm) - Depth 0.1 -Total Square Cm 0.01 -Photo Taken Yes -Epithelialization Large 67-100% -Undermining/Tunneling No -Circular Undermining No -Exudate Amt None Present -Wound Margin Distinct, Outline Attached -Granulation Amt Large (67-100%) -Granulation Quality Alta -Slough/Fibrin Yes -Necrosis Amt Small (1-33%) -Necrotic Tissue Type Adherent Slough -Structure Exposed N/A -Texture (Jessica-wound Skin Appearance) Assessed -Moisture (Jessica-wound Skin Appearance) Assessed -Color (Jessica-wound Skin Appearance) Assessed -Temperature (Jessica-wound Skin No Abnormality Appearance) (Pt Warm) -Tenderness on Palpation (Jessica-wound No Skin Appearance) -Ulcer Cleansing Wound Cleanser -Foul Odor after Cleansing No -Anesthetic Used 5% Lidocaine Gel 10. R 2nd TOE -Combined with other wound No -Current Size (cm) - Length 0.3 -Current Size (cm) - Width 0.7 -Current Size (cm) - Depth 0.1 -Total Square Cm 0.21 -Photo Taken Yes -Tunneling No -Undermining/Tunneling No -Circular Undermining No -Exudate Amt Medium -Exudate Type Serosanguineous -Wound Margin Distinct, Outline Attached -Granulation Amt Medium (34-66%) -Granulation Quality Alta -Slough/Fibrin Yes -Necrosis Amt Small (1-33%) -Necrotic Tissue Type Adherent Slough -Structure Exposed N/A -Texture (Jessica-wound Skin Appearance) Assessed -Moisture (Jessica-wound Skin Appearance) Assessed -Color (Jessica-wound Skin Appearance) Assessed -Temperature (Jessica-wound Skin No Abnormality Appearance) (Pt Warm) -Tenderness on Palpation (Jessica-wound No Skin Appearance) -Ulcer Cleansing Wound Cleanser -Foul Odor after Cleansing No -Anesthetic Used 5% Lidocaine Gel 9. LLE MEDIAL -Combined with other wound No -Current Size (cm) - Length 0.5 -Current Size (cm) - Width 0.7 -Current Size (cm) - Depth 0.1 -Total Square Cm 0.35 -Photo Taken Yes -Tunneling No -Undermining/Tunneling No -Circular Undermining No -Exudate Amt Medium -Exudate Type Serosanguineous -Wound Margin Distinct, Outline Attached -Granulation Amt Medium (34-66%) -Granulation Quality Alta -Slough/Fibrin Yes -Necrosis Amt Small (1-33%) -Necrotic Tissue Type Adherent Slough -Structure Exposed N/A -Texture (Jessica-wound Skin Appearance) Assessed -Moisture (Jessica-wound Skin Appearance) Assessed -Color (Jessica-wound Skin Appearance) Assessed -Temperature (Jessica-wound Skin No Abnormality Appearance) (Pt Warm) -Tenderness on Palpation (Jessica-wound No Skin Appearance) -Ulcer Cleansing Wound Cleanser -Foul Odor after Cleansing No -Anesthetic Used 5% Lidocaine Gel 8. L NOLASCO CLUSTER -Combined with other wound No -Current Size (cm) - Length 0.1 -Current Size (cm) - Width 0.1 -Current Size (cm) - Depth 0.1 -Total Square Cm 0.01 -Photo Taken Yes -Tunneling No -Undermining/Tunneling No -Circular Undermining No -Exudate Amt Medium -Exudate Type Serosanguineous -Wound Margin Distinct, Outline Attached -Granulation Amt Medium (34-66%) -Granulation Quality Alta -Slough/Fibrin Yes -Necrosis Amt Small (1-33%) -Necrotic Tissue Type Adherent Slough -Structure Exposed N/A -Texture (Jessica-wound Skin Appearance) Assessed -Moisture (Jessica-wound Skin Appearance) Assessed -Color (Jessica-wound Skin Appearance) Assessed -Temperature (Jessica-wound Skin No Abnormality Appearance) (Pt Warm) -Tenderness on Palpation (Jessica-wound No Skin Appearance) -Ulcer Cleansing Wound Cleanser -Foul Odor after Cleansing No -Anesthetic Used 5% Lidocaine Gel Lower Limb Edema Present Yes Right Calf (cm) 34.5 Right Ankle (cm) 20.5 Left Calf (cm) 34.5 Left Ankle (cm) 20.5 WC - Nurse 2 - General Ulcer CM Notes Start: 09/18/24 09:15 Freq: Status: Active Protocol: Activity Type Activity Date Activity User E-sign Co-sign Detail Recorded Client Recorded Date Recorded By Document 09/18/24 09:30 ALBERTO [id number] 09/18/24 09:35 ALBERTO 09/18/24 09:30 Wound Center Nurse 2 11. 5th TOE LATERAL -Time 09:32 -Correct Patient Yes -Correct Side, Site, Position Yes -Correct Procedure Yes -Procedure Performed Yes -Type of Procedure Debridement -Clinical Debridement Subcutaneous -Tissue Removed Subcutaneous -Post Debridement (cm) - Length 0.5 -Post Debridement (cm) - Width 0.5 -Post Debridement (cm) - Depth 0.2 -Total Square (Post) (cm) 0.25 -Area of Debridement (cm) - Length 0.5 -Area of Debridement (cm) - Width 0.5 -Total Square (Area) (cm) 0.25 -Tunneling No -Undermining/Tunneling No -Circular Undermining No -Wound/Ulcer Outcome Not Healed -Ulcer Cleansing Rinsed/ Irrigated with Saline -Foul Odor after Cleansing No -Bioengineered Tissue No -Bleeding Controlled with Pressure -Treatment Response Procedure Tolerated Well -Offloading Yes -Type of Offloading Surgical Shoe -Debridement - Subq, 1st 20sq cm No 10. R 2nd TOE -Time 09:32 -Correct Patient Yes -Correct Side, Site, Position Yes -Correct Procedure Yes -Procedure Performed Yes -Type of Procedure Debridement -Clinical Debridement Subcutaneous -Tissue Removed Subcutaneous -Post Debridement (cm) - Length 0.7 -Post Debridement (cm) - Width 0.4 -Post Debridement (cm) - Depth 0.1 -Total Square (Post) (cm) 0.28 -Area of Debridement (cm) - Length 0.7 -Area of Debridement (cm) - Width 0.4 -Total Square (Area) (cm) 0.28 -Tunneling No -Undermining/Tunneling No -Circular Undermining No -Wound/Ulcer Outcome Not Healed -Ulcer Cleansing Rinsed/ Irrigated with Saline -Foul Odor after Cleansing No -Bioengineered Tissue No -Bleeding Controlled with Pressure -Treatment Response Procedure Tolerated Well -Offloading No -Debridement - Subq, 20sq cm No 9. LLE MEDIAL -Time 09:34 -Correct Patient Yes -Correct Side, Site, Position Yes -Correct Procedure Yes -Procedure Performed Yes -Type of Procedure Debridement -Clinical Debridement Subcutaneous -Tissue Removed Subcutaneous -Post Debridement (cm) - Length 0.5 -Post Debridement (cm) - Width 1.0 -Post Debridement (cm) - Depth 0.1 -Total Square (Post) (cm) 0.50 -Area of Debridement (cm) - Length 0.5 -Area of Debridement (cm) - Width 1.0 -Total Square (Area) (cm) 0.50 -Tunneling No -Undermining/Tunneling No -Circular Undermining No -Wound/Ulcer Outcome Not Healed -Ulcer Cleansing Rinsed/ Irrigated with Saline -Foul Odor after Cleansing No -Bioengineered Tissue No -Bleeding Controlled with Pressure -Treatment Response Procedure Tolerated Well -Offloading No -Debridement - Subq, 1st 20sq cm Yes 8. L NOLASCO CLUSTER -Time 09:34 -Correct Patient Yes -Correct Side, Site, Position Yes -Correct Procedure Yes -Procedure Performed Yes -Type of Procedure Debridement -Clinical Debridement Subcutaneous -Tissue Removed Subcutaneous -Post Debridement (cm) - Length 1.7 -Post Debridement (cm) - Width 1 -Post Debridement (cm) - Depth 0.1 -Total Square (Post) (cm) 1.7 -Area of Debridement (cm) - Length 1.7 -Area of Debridement (cm) - Width 1.0 -Total Square (Area) (cm) 1.70 -Tunneling No -Undermining/Tunneling No -Circular Undermining No -Wound/Ulcer Outcome Not Healed -Ulcer Cleansing Rinsed/ Irrigated with Saline -Foul Odor after Cleansing No -Bioengineered Tissue No -Bleeding Controlled with Pressure -Treatment Response Procedure Tolerated Well -Offloading No -Debridement - Subq, 1st 20sq cm No Pain Scale: 0-10 Numeric Is Patient Pain Free? Yes - Nurse 3 - General Ulcer D/C NN Start: 09/18/24 09:15 Freq: Status: Active Protocol: Activity Type Activity Date Activity User E-sign Co-sign Detail Recorded Client Recorded Date Recorded By Document 09/18/24 09:56 [id number] 09/18/24 09:57 09/18/24 09:56 Wound Care Center Nurse 3 11. 5th TOE LATERAL -Other Dressing hydrogel -Primary Dressing Covered/Secured with Dry Gauze, Secured with Tape 10. R 2nd TOE -Other Dressing hydrogel -Primary Dressing Covered/Secured with Dry Gauze, Secured with Tape 9. LLE MEDIAL -Primary Dressing Applied Aquacel AG 4x4 -Primary Dressing Covered/Secured with Dry Gauze -Aquacel AG 4x4 1 8. L NOLASCO CLUSTER -Other Dressing aquacel ag -Primary Dressing Covered/Secured with Dry Gauze,Dry Gauze & Roll Gauze,Secured with Tape LEFT LEG -Tubular Bandage Double Layer -Size of Tubigrip Used Size F -Size F ($) 2 RIGHT LEG -Multi-Layered Wrap Application Multi-Layer Comp - Right ($ ) -Multi-Layer Compression Right (Qty 1 applied) Pain Scale: 0-10 Numeric Is Patient Pain Free? Yes WC - Visit Discharge Discharge Condition Stable Ambulatory Status Ambulatory, Walker Transportation Private Auto Medication Reconcilliation completed & No provided to patient/care provider Clinical Summary of Care Provided Yes Assessment/Plan Assessment/Plan (1) Type 2 diabetes mellitus with diabetic polyneuropathy: CODE(S): E11.42 - Type 2 diabetes mellitus with diabetic polyneuropathy QUALIFIERS: Diabetes mellitus terminal press operator insulin use: with terminal press operator use Qualified Code(s): E11.42 - Type 2 diabetes mellitus with diabetic polyneuropathy; Z79.4 - ocean transportation intermediary (current) use of insulin PLAN: Exam performed. Vital signs within normal limits. Recent x-rays right foot negative for osteomyelitis. 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 Bilateral lower extremities were excisionally debrided down to including level of subcutaneous tissue of all nonviable tissue using 5 mm dermal curette and 15 blade. No topical anesthesia due to neuropathy. Hemostasis obtained with lightcompression. Pre and postdebridement measurements document and nursing notes. Patient will offload right foot wounds with surgical shoe. Dress daily with hydrogel dry sterile dressing Tubigrip to right lower extremity. Left lower extremity will dress with silver alginate and 3M compression wrap. Patient willfollow-up weekly (2) Non-pressure chronic ulcer of other part of right foot with fat layer exposed: CODE(S): L97.512 - Non-pressure chronic ulcer of other part of right foot with fat layer exposed (3) Non-pressure chronic ulcer of left calf with fat layer exposed: CODE(S): L97.222 - Non-pressure chronic ulcer of left calf with fat layer exposed 09/18/24 1027 <Electronically signed by Fatemeh Espinosa DPM> Cosigner Signature (if applicable): CC: ~ Signed [facility] Work Phone: 1(681) 828-878804-07-2025 Radiology Diagnostic study [facility]04-07-2025 Evaluation note* Diagnosis Onset Date Resolution Status Admit Date Diabetic ulcer of toe acute Aug 10:26am Toe ulcer acute August 20 10:26am Essential hypertension chronic Ap 2024 10:26am Osteoporosis chronic August 20 025 10:26am Type II diabetes mellitus chronic August 20, 2024 10:26am Type 2 diabetes mellitus wit h diabetic polyneuropathy acute September 112024 10:00am Non-pressure chronic ulcer o f left calf with fat layer exposed chronic September 11, 2024 10:00am Non-pressure chronic ulcer o f other part of right foot with fat layer exposed chronic September 11 10:00am Bilateral leg ulcer acute September 192024 1:02pm Essential hypertension chronic 2024 1:02pm Osteoporosis chronic September 19 1:02pm Paroxysmal A-fib chronic September 19, 2024 1:02pm Essential hypertension chronic Ma y 2024 1:16pm Hyperlipidemia chronic September 24, 2024 1:16pm Paroxysmal atrial fibrillation chron ic September 24, 2024 1:16pm Type 2 diabetes mellitus wit h diabetic polyneuropathy acute September 8:45am Non-pressure chronic ulcer o f left calf with fat layer exposed chronic October 02, 2024 8:45am Non-pressure chronic ulcer o f other part of right foot with fat layer exposed chronic October 02, 2024 8:45am [facility] Work Phone: 1(450) 176-355104-07-2025 Evaluation note* Diagnosis Onset Date Resolution Status Admit Date Diabetic ulcer of toe acute Aug 10:26am Toe ulcer acute August 20 10:26am Essential hypertension chronic 2024 10:26am Osteoporosis chronic August 20, 025 10:26am Type II diabetes mellitus chronic August 20, 2024 10:26am Type 2 diabetes mellitus wit h diabetic polyneuropathy acute September 112024 10:00am Non-pressure chronic ulcer o f left calf with fat layer exposed chronic September 11, 2024 10:00am Non-pressure chronic ulcer o f other part of right foot with fat layer exposed chronic September 11 10:00am Bilateral leg ulcer acute September 192024 1:02pm Essential hypertension chronic 2024 1:02pm Osteoporosis chronic September 19 1:02pm Paroxysmal A-fib chronic September 19, 2024 1:02pm Essential hypertension chronic Ma 2024 1:16pm Hyperlipidemia chronic September 24, 2024 1:16pm Paroxysmal atrial fibrillation chron ic September 24, 2024 1:16pm Type 2 diabetes mellitus wit h diabetic polyneuropathy acute September 8:45am Non-pressure chronic ulcer o f left calf with fat layer exposed chronic October 09, 2024 8:45am Non-pressure chronic ulcer o f other part of right foot with fat layer exposed chronic October 09, 2024 8:45am [facility] Work Phone: 1(376) 848-163301-06-2025 Evaluation note* Diagnosis Onset Date Resolution Status Admit Date Edema acute May 21, 025 1:45pm Hyperlipidemia acute May 1:45pm Arrhythmia chronic May 21 025 1:45pm Essential hypertension chronic Ja nuary 2024 1:45pm Generalized erosion of teeth chronic May 21, 2024 1:45pm Type II diabetes mellitus chronic May 21, 2024 1:45pm Diabetic ulcer of toe acute Apr 2024 10:26am Toe ulcer acute August 20 10:26am Essential hypertension chronic Ap 2024 10:26am Osteoporosis chronic August 20 10:26am Type II diabetes mellitus chronic August 20, 2024 10:26am [facility] Work Phone: 1(406) 460-618306-08-2024 Evaluation + Plan note Future Scheduled Tests Laboratory* A1C Hemoglobin 10/22/23 * Complete Blood Count 10/22/23 * Lipid Profile 10/22/23 * Complete Metabolic Panel 10/22/23 [facility] 05-08-2024 Primary care Note Chief Complaint Wants a order to be discharged home History of Present Illness Joseline is seen at [facility] today. She continues to recover from her fall 2 months ago. She did OT and PT at [facility]. She is finished with both of these. She saw cardiology last month, PAF was stable, was in sinus rhythm, continues on dofetilide and Eliquis. Diabetes well controlled with metformin, glimepiride, last A1c 6.4 2 months ago[address] with Dr. Raymond from pulmonology, needs BiPAP but waiting on insurance. She states she would like to move back home. Her family home is in town, close to [facility]. This is where she lived previously. She has a friend who was living with her who is still at the house. Does not have any family who lives close. She uses the [facility] transport service for rides to andfrom appointments. She says she has various friends who can come in to bring her meals and someone who comes once a week to do housecleaning. She does have a life alert necklace. Review of Systems SYSTEMIC: No fevers, No chills, No night sweats, no significant weight changes. HEART: No chest pain, no palpitations, no orthopnea. LUNGS: No cough, no shortness of breath, no wheezing. EXTREMITIES: No edema in bilateral legs; no joint swelling. GI: No nausea, no vomiting, no abdominal pain, no diarrhea, no constipation. No blood in stool. Physical Exam Vitals and Measurements T: 36.2 C (Temporal Artery) HR: 81 RR: 18 BP: 148/91 SpO2: 96% HT: 129.5 cm WT: 88.4 kg BMI: 52.71 Oxygen Therapy: Room air GENERAL: Well nourished, well developed, pleasant, cooperative, no acute distress. PSYCHIATRIC: Alert and oriented x 3, cooperative, mood normal, affect normal . NECK: Supple, no posterior midline tenderness. Normal range of motion. No thyromegaly noted. CARDIOVASCULAR: Regular rate, regular rhythm, no murmurs noted. No lower extremity pitting edema. Normal pedal pulses. RESPIRATORY: Regular rate and depth of respirations; no respiratory distress; RIGHT lung clear , LEFT lung clear. DERM: Warm and dry . Normal turgor. No observed exanthem. Social History Alcohol Use: Never., 08/18/2023 Substance Abuse Use: Never., 08/18/2023 Tobacco Nicotine Use: Never (less than 100 in lifetime)., 07/20/2023 Family History Heart failure: Father. Assessment/Plan 1. DM type 2 (diabetes mellitus, type 2) A1c is at goal. Continue current medications. Continue diabetic diet. Ordered: A1C Hemoglobin Complete Blood Count Complete Metabolic Panel Lipid Profile 2. HTN (hypertension) Blood pressure is well-controlled. Continue current medications. 3. (HFpEF) heart failure with preserved ejection fraction Euvolemic. Continue following with cardiology. 4. PAF (paroxysmal atrial fibrillation) Current medications and continue following with cardiology. 5. Lack of family support Discussed barriers to being able to manage if she got home. She says she does not currently have any plans to move back but would like to at some point. We talked about needing someone to help her with meals and housework. Would recommend home health aide. Would recommend evaluating her home for fall risks. Follow up PRN if needing home health ordered. Problem List/Past Medical History Ongoing (HFpEF) heart failure with preserved ejection fraction DM type 2 (diabetes mellitus, type 2) History of cardioversion HTN (hypertension) Lack of family support PAF (paroxysmal atrial fibrillation) Historical No qualifying data Procedure/Surgical History Cardioversion: 07/13/23 Echocardiogram: 07/11/23 Allergies Monopril pioglitazone Medications What How Much When Instructions Last Dose Unchanged acetaminophen (Tylenol 325 mg oral capsule) 650 Milligram by mouth Every 4 hours as needed for Pain, scale 1-3 Unchanged amLODIPine (amLODIPine 5 mg oral tablet) 1 tab(s) by mouth Once a day Unchanged apixaban (Eliquis 5 mg oral tablet) 1 tab(s) by mouth Two (2) times a day Unchanged ascorbic acid (Vitamin C 500 mg oral tablet) 1 tab(s) by mouth Once a day Unchanged atorvastatin (atorvastatin 40 mg oral tablet) 1 tab(s) by mouth Once a day Unchanged bisacodyl (bisacodyl 10 mg rectal suppository) 1 suppository(ies) in the rectum Once a day as needed for as needed for constipation Unchanged calcium carbonate (calcium carbonate 500 mg (200 mg elemental calcium) oral tablet, chewable) 1 tab(s) Chewed Every 8 hours as needed for as needed for dyspepsia Unchanged cholecalciferol (Vitamin D3) 50 Microgram by mouth Every day Unchanged docusate (Colace 100 mg oral capsule) 1 cap by mouth Two (2) times a day as needed for Constipation Unchanged docusate-senna (docusate-senna 50 mg-8.6 mg oral tablet) 1 tab(s) by mouth Daily at bedtime as needed for Constipation Unchanged docusate-senna (Senexon-S 50 mg-8.6 mg oral tablet) 2 tab(s) by mouth Daily at bedtime as needed for Constipation Unchanged dofetilide (Tikosyn 250 mcg oral capsule) 1 cap by mouth Every 12 hours Unchanged ferrous sulfate (IRON (ferrous sulfate 325 mg) 65 mg oral tablet) 1 tab(s) by mouth Once a day with a meal Unchanged furosemide (furosemide 20 mg oral tablet) 1 tab(s) by mouth Once a day Unchanged glimepiride (glimepiride 4 mg oral tablet) 1 tab(s) by mouth Two (2) times a day Unchanged glucagon (glucagon 1 mg injection) 1 Milligram Subcutaneous Once as needed for Low blood sugar Unchanged guaiFENesin (guaiFENesin 100 mg/ 5 mL oral liquid) 10 Milliliter by mouth Every 4 hours as needed for Cough Unchanged magnesium hydroxide (Milk of Magnesia 8% oral suspension) 30 Milliliter by mouth Once a day as needed for as needed for constipation Unchanged menthol topical (Biofreeze 4% topical gel) See instructions Topical BID to knees Unchanged metFORMIN (metFORMIN 1000 mg oral tablet (IR)) 1 tab(s) by mouth Two (2) times a day Unchanged metoprolol (metoprolol succinate 50 mg oral TABLET extended release) 1 tab(s) by mouth Once a day Unchanged multivitamin (Multivitamin) 1 tab(s) by mouth Once a day Unchanged oxybutynin (oxybutynin 15 mg/ 24 hr oral tablet, extended release) 1 tab(s) by mouth Two (2) times a day Unchanged polyethylene glycol 3350 (MiraLax oral powder for reconstitution) 17 gram(s) by mouth Once a day as needed for Constipation Unchanged sertraline (sertraline 100 mg oral tablet) 1 tab(s) by mouth Once a day Unchanged sodium biphosphate-sodium phosphate (sodium biphosphate-sodium phosphate 19 g-7 g rectal enema) See instructions Rectal Once Unchanged sodium biphosphate-sodium phosphate (sodium biphosphate-sodium phosphate 19 g-7 g rectal enema) See instructions mL Rectal Once Unchanged sodium chloride nasal (Tumtum Saline 0.65% nasal gel) See instructions one application in both nostrils q 8 hours prn for dry nares Digitally Signed by VANESSA CALDWELL APRN-CON on 09/21/2023 03:34 PM [facility] [id number] Note. MICRO - Microbiology PROCEDURE: Blood Culture (bacterial) [*1] SOURCE: Blood BODY SITE: COLLECTED DATE/TIME: 07/10/2023 23:57 EST RECEIVED DATE/TIME: 07/11/2023 03:28 EST START DATE/TIME: 07/11/2023 03:29 EST FREE TEXT SOURCE: FINAL REPORTS Final Report [] Verified Date/Time/Personnel: 07/16/2023 03:59 EST Blood Culture: No Growth at 5 days. PRELIMINARY REPORTS Preliminary Report [] Verified Date/Time/Personnel: 07/11/2023 03:59 EST Culture has been received in lab and is no growth to date. Routine cultures are held for 5 days. Performing Locations *1: This test was performed at: [facility], [address] [place] [address], [facility] , [facility]07-16-2023 Note. MICRO - Microbiology PROCEDURE: Blood Culture (bacterial) [*1] SOURCE: Blood BODY SITE: COLLECTED DATE/TIME: 07/10/2023 23:57 EST RECEIVED DATE/TIME: 07/11/2023 03:29 EST START DATE/TIME: 07/11/2023 03:29 EST FREE TEXT SOURCE: FINAL REPORTS Final Report [] Verified Date/Time/Personnel: 07/16/2023 03:59 EST Blood Culture: No Growth at 5 days. PRELIMINARY REPORTS Preliminary Report [] Verified Date/Time/Personnel: 07/11/2023 03:59 EST Culture has been received in lab and is no growth to date. Routine cultures are held for 5 days. Performing Locations *1: This test was performed at: [address], [address] , [facility]07-14-2023 Discharge summary Date of Service 07/14/23 Discharge Diagnosis Urinary tract infection, site not specified (N39.0 - ICD-10-CM) Acute kidney failure, unspecified (N17.9 - ICD-10-CM) Hypo-osmolality and hyponatremia (E87.1 - ICD-10-CM) Altered mental status, unspecified (R41.82 - ICD-10-CM) Type 2 diabetes mellitus without complications (E11.9 - ICD-10-CM) Influenza due to other identified influenza virus with encephalopathy (J10.81 - ICD-10-CM) Typical atrial flutter (I48.3 - ICD-10-CM) Other toxic encephalopathy (G92.8 - ICD-10-CM) Acute on chronic diastolic (congestive) heart failure (I50.33 - ICD-10-CM) Acute respiratory failure with hypoxia (J96.01 - ICD-10-CM) Unspecified toxic encephalopathy (G92.9 - ICD-10-CM) Influenza due to other identified influenza virus with unspecified type of pneumonia (J10.00 - ICD-10-CM) Pneumonia, unspecified organism (J18.9 - ICD-10-CM) A-fib (I48.91 - ICD-10-CM) Acute hypoxic respiratory failure (J96.01 - ICD-10-CM) Cystitis (N30.90 - ICD-10-CM) Encephalopathy acute (G93.40 - ICD-10-CM) Fall (W19.XXXA - ICD-10-CM) Hyponatremia (E87.1 - ICD-10-CM) Influenza A (J10.1 - ICD-10-CM) Pneumonia (J18.9 - ICD-10-CM) Type 2 diabetes mellitus (E11.9 - ICD-10-CM) Weakness (R53.1 - ICD-10-CM) Additional Orders: Ordered: Discharge,07/14/23 10:58:00 EST, Discharged to: Assisted Living Facility Ordered: IRON (ferrous sulfate 325 mg) 65 mg oral tablet,Dose : 325 mg = 1 tab(s), Oral, qDayM, # 30 tab(s), 3 Refill(s), [facility]acy: [facility], [facility], cm, 07/10/23 21:37:00 EST, Height, kg, 07/10/23 21:37:00 EST, Dosing Weight Ordered: Tikosyn 250 mcg oral capsule,Dose : 250 mcg = 1 cap(s), Oral, q12hr, # 60 cap(s), 3 Refill(s), Pharmacy: [facility], 155, cm, 07/10/23 21:37:00 EST, Height, kg, 07/10/23 21:37:00 EST, Dosing Weight Ordered: Transfer of Care Activity,Activity As Tolerated, 07/14/23 11:00:00 EST Ordered: Transfer of Care Code Status,DNRCC-Arrest Intubate & Mechanical Vent, Constant Order Ordered: Transfer of Care Diet,Type of Diet: Regular Diet, 07/14/23 11:00:00 EST Ordered: Transfer of Care Orders Electronically Signed By,07/14/23 11:00:00 EST, ANILA ZAMBRANO MD Ordered: Transfer of Care Prognosis,Fair, Patient Aware: Yes Ordered: Transfer of Care Rehab Potential,Rehab potential fair, 07/14/23 11:00:20 EST Ordered: amLODIPine 5 mg oral tablet,Dose : 5 mg = 1 tab(s), Oral, qDay, # 30 tab(s), 3 Refill(s), Pharmacy: [facility], [facility], cm, 07/10/23 21:37:00 EST, Height, kg, 07/10/23 21:37:00 EST, Dosing Weight Ordered: atorvastatin 40 mg oral tablet,Dose : 40 mg = 1 tab(s), Oral, qDay, # 30 tab(s), 3 Refill(s), Pharmacy: [facility], 155, cm, 07/10/23 21:37:00 EST, Height, kg, 07/10/23 21:37:00 EST, Dosing Weight Discontinued: ferrous gluconate 324 mg (38 mg elemental iron) oral tablet,Dose : 324 mg = 1 tab(s),Oral, qDay, 0 Refill(s) Ordered: metoprolol succinate 50 mg oral TABLET extended release,Dose : 50 mg = 1 tab(s), Oral, qDay, # 30 tab(s), 3 Refill(s), Pharmacy: [facility]/pharmacy #[id number], 155, cm, 07/10/23 21:37:00 EST, Height, kg, 07/10/23 21:37:00 EST, Dosing Weight Hospital Course Patient failed cardioversion x 2 in [place] ED after diltiazem and 0.5 digoxin did not control rate, she was transferred to [facility] for further evaluation. Was started on diltiazem drip at 20 mg/h, started on Toprol-XL 100 twice daily and weaned off IV diltiazem drip to PO 60mg QID with plan to switch back to long acting formulation. EP was consulted, patient was started on Tikosyn loading.She is found to be flu positive. Diltiazem was discontinued. Patient underwent successful DCCV withreturn to normal sinus rhythm. Her QTc remained within normal limits after fifth dose of Tikosyn. Allergies Monopril pioglitazone Procedures DCCV Consults Consult to Physician - Ordered -- 07/11/23 7:51:00 EST, IMAN AGUILAR MD, Routine, Aflutter Consult to Physician - Ordered -- 07/11/23 11:27:00 EST, JOSÉ INIGUEZ MD, Routine, intertrochanteric/lesser trochanteric and subtrochanteric fractures Consult to Physician - Ordered -- 07/12/23 9:50:00 EST, RYLAN LOMBARDI MD, Routine, esbl uti Objective Vitals and Measurements T: 36.6 C (Axillary) TMIN: 36.4 C (Axillary) TMAX: 36.8 C (Axillary) HR: 60(Monitored) RR: 18 BP: 178/80 SpO2: 95% Weight Dosing Weight: 89 kg (07/10/23) General Appearance: NAD Head: NCAT EENT: no gross abnormalities Neck: no JVD appreciated Cardiac: NS1S2 Lungs: CTAB Abdomen: soft, NT/ND Musculoskeletal: ROM wnl Extremities: no pitting edema Neurological: no focal deficits Skin: warm, dry Psychiatric: normal mentation Code Status Code Status - Ordered -- 07/10/23 21:36:00 EST, DNRCC-Arrest Intubate & Mechanical Vent, Constant Order Admission Date 07/10/23 Discharge Date 07/14/23 Medications New Prescription dofetilide (Tikosyn 250 mcg oral capsule)1 cap by mouth every 12 hours. Refills: 3. ferrous sulfate (IRON (ferrous sulfate 325 mg) 65 mg oral tablet)1 tab(s) by mouth once a day with a meal. Refills: 3. Changed acetaminophen (Tylenol 325 mg oral capsule)650 Milligram by mouth every 4 hours as needed Pain, scale 1-3. amLODIPine (amLODIPine 5 mg oral tablet)1 tab(s) by mouth once a day. Refills: 3. atorvastatin (atorvastatin 40 mg oral tablet)1 tab(s) by mouth once a day. Refills: 3. metoprolol (metoprolol succinate 50 mg oral TABLET extended release)1 tab(s) by mouth once a day. Refills: 3. Unchanged apixaban (Eliquis 5 mg oral tablet)1 tab(s) by mouth two (2) times a day. cholecalciferol (Vitamin D3)50 Microgram by mouth every day. docusate (Colace 100 mg oral capsule)1 cap by mouth two (2) times a day as needed Constipation. docusate-senna (docusate-senna 50 mg-8.6 mg oral tablet)2 tab(s) by mouth daily at bedtime. furosemide (furosemide 20 mg oral tablet)1 tab(s) by mouth once a day. glimepiride (glimepiride 4 mg oral tablet)1 tab(s) by mouth two (2) times a day. metFORMIN (metFORMIN 1000 mg oral tablet (IR))1 tab(s) by mouth two (2) times a day. multivitamin (Multivitamin)1 tab(s) by mouth once a day. oxybutynin (oxybutynin 15 mg/24 hr oral tablet, extended release)1 tab(s) by mouth two (2) times a day. polyethylene glycol 3350 (MiraLax oral powder for reconstitution)by mouth once a day as needed Constipation. sertraline (sertraline 100 mg oral tablet)1 tab(s) by mouth once a day. Discontinued dilTIAZem (DilTIAZem (Eqv-Cardizem CD) 240 mg/24 hours oral capsule, extended release)1 cap by mouth once a day. ferrous gluconate (ferrous gluconate 324 mg (38 mg elemental iron) oral tablet)1 tab(s) by mouth once a day. insulin lispro (HumaLOG) (HumaLOG 100 units/mL subcutaneous solution)Give 0-5 units/dose Subcutaneous three (3) times a day before meals. Follow Up Follow Up with ELMA SANTIAGO MD When 08/22/2023 10:45 AM EDT Where: [address] [facility] [address] [place] [address]- [phone] Follow Up with Discharge to [facility] Level of Care When Within 1-2 days Follow Up with JOEL LAYC MD When Within 5 to 7 days Where: [address] [address] [phone] Follow Up with Home Health Care (PT/OT) provided by [facility] When Within 1-2 days Where: [phone] Follow Up with BERNIE REAGAN MD When Within 1-2 days Where: [address] [place] [place] [address]- [phone] Follow Up Appointments No qualifying data available. Follow Up Labs/Studies Discharge Labs No Follow-up Labs Discharge Studies No Follow-up Studies Discharge Diet Transfer of Care Diet - Ordered -- Type of Diet: Regular Diet, 07/14/23 11:00:00 EST Discharge Activity Transfer of Care Activity - Ordered -- Activity As Tolerated, 07/14/23 11:00:00 EST Readmission Risk/Palliative Score No qualifying data available. Digitally Signed by JASMYNE SWENSON MD on 07/14/2023 03:32 PM [id number] Discharge instructions Patient Education 07/14/2023 13:12:20 Atrial Fibrillation, [id number] Atrial Fibrillation Atrial fibrillation is a type of heartbeat that is irregular or fast (rapid). If you have this condition, your heart beats without any order. This makes it hard for your heart to pump blood in a normal way. Having this condition gives you more risk for stroke, heart failure, and other heart problems. Atrial fibrillation may start all of a sudden and then stop on its own, or it may become a long-lasting problem. What are the causes? This condition may be caused by heart conditions, such as: High blood pressure. Heart failure. Heart valve disease. Heart surgery. Other causes include: Pneumonia. Obstructive sleep apnea. Lung cancer. Thyroid disease. Drinking too much alcohol. Sometimes the cause is not known. What increases the risk? You are more likely to develop this condition if: You smoke. You are older. You have diabetes. You are overweight. You have a family history of this condition. You exercise often and hard. What are the signs or symptoms? Common symptoms of this condition include: A feeling like your heart is beating very fast. Chest pain. Feeling short of breath. Feeling light-headed or weak. Getting tired easily. Follow these instructions at home: Medicines Take wbbn-pqo-woevwek and prescription medicines only as told by your doctor. If your doctor gives you a blood-thinning medicine, take it exactly as told. Taking too much of it can cause bleeding. Taking too little of it does not protect you against clots. Clots can cause a stroke. Lifestyle Do not use any tobacco products. These include cigarettes, chewing tobacco, and e-cigarettes. If you need help quitting, ask your doctor. Do not drink alcohol. Do not drink beverages that have caffeine. These include coffee, soda, and tea. Follow diet instructions as told by your doctor. Exercise regularly as told by your doctor. General instructions If you have a condition that causes breathing to stop for a short period of time (apnea), treat it as told by your doctor. Keep a healthy weight. Do not use diet pills unless your doctor says they are safe for you. Diet pills may make heart problems worse. Keep all follow-up visits as told by your doctor. This is important. Contact a doctor if: You notice a change in the speed, rhythm, or strength of your heartbeat. You are taking a blood-thinning medicine and you see more bruising. You get tired more easily when you move or exercise. You have a sudden change in weight. Get help right away if: You have pain in your chest or your belly (abdomen). You have trouble breathing. You have blood in your vomit, poop, or pee (urine). You have any signs of a stroke. BE FAST is an easy way to remember the main warning signs: ?B - Balance. Signs are dizziness, sudden trouble walking, or loss of balance. ?E - Eyes. Signs are trouble seeing or a change in how you see. ?F - Face. Signs are sudden weakness or loss of feeling in the face, or the face or eyelid droopingon one side. ?A - Arms. Signs are weakness or loss of feeling in an arm. This happens suddenly and usually on one side of the body. ?S - Speech. Signs are sudden trouble speaking, slurred speech, or trouble understanding what people say. ?T - Time. Time to call emergency services. Write down what time symptoms started. You have other signs of a stroke, such as: ?A sudden, very bad headache with no known cause. ?Feeling sick to your stomach (nausea). ?Throwing up (vomiting). ?Jerky movements you cannot control (seizure). These symptoms may be an emergency. Do not wait to see if the symptoms will go away. Get medical help right away. Call your local emergency services (911 in the [place] Do not drive yourself to the hospital. Summary Atrial fibrillation is a type of heartbeat that is irregular or fast (rapid). You are at higher risk of this condition if you smoke, are older, have diabetes, or are overweight. Follow your doctor's instructions about medicines, diet, exercise, and follow-up visits. Get help right away if you think that you have signs of a stroke. This information is not intended to replace advice given to you by your health care provider. Make sure you discuss any questions you have with your health care provider. Document Released: 02/08/2009 Document Revised: 07/06/2018 Document Reviewed: 06/23/2018 [employer] Patient Education 2020 [employer]. 07/14/2023 13:10:56 Electrical Cardioversion Electrical Cardioversion Electrical cardioversion is the delivery of a jolt of electricity to restore a normal rhythm to theheart. A rhythm that is too fast or is not regular keeps the heart from pumping well. In this procedure, sticky patches or metal paddles are placed on the chest to deliver electricity to the heart from a device. This procedure may be done in an emergency if: There is low or no blood pressure as a result of the heart rhythm. Normal rhythm must be restored as fast as possible to protect the brain and heart from further damage. It may save a life. This procedure may also be done for irregular or fast heart rhythms that are not immediately life-threatening. Tell a health care provider about: Any allergies you have. All medicines you are taking, including vitamins, herbs, eye drops, creams, and ijya-lrl-vtzpgis medicines. Any problems you or family members have had with anesthetic medicines. Any blood disorders you have. Any surgeries you have had. Any medical conditions you have. Whether you are or may be . What are the risks? Generally, this is a safe procedure. However, problems may occur, including: Allergic reactions to medicines. A blood clot that breaks free and travels to other parts of your body. The possible return of an abnormal heart rhythm within hours or days after the procedure. Your heart stopping (cardiac arrest ). This is rare. What happens before the procedure? Medicines Your health care provider may have you start taking: ?Blood-thinning medicines (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) so your blood does not clot as easily. ?Medicines may be given to help stabilize your heart rate and rhythm. Ask your health care provider about changing or stopping your regular medicines. This is especiallyimportant if you are taking diabetes medicines or blood thinners. General instructions Plan to have someone take you home from the hospital or clinic. If you will be going home right after the procedure, plan to have someone with you for 24 hours. Follow instructions from your health care provider about eating or drinking restrictions. What happens during the procedure? To lower your risk of infection: ?Your health care team will wash or sanitize their hands. ?Your skin will be washed with soap. An IV tube will be inserted into one of your veins. You will be given a medicine to help you relax (sedative). Sticky patches (electrodes) or metal paddles may be placed on your chest. An electrical shock will be delivered. The procedure may vary among health care providers and hospitals. What happens after the procedure? Your blood pressure, heart rate, breathing rate, and blood oxygen level will be monitored until themedicines you were given have worn off. Do not drive for 24 hours if you were given a sedative. Your heart rhythm will be watched to make sure it does not change. This information is not intended to replace advice given to you by your health care provider. Make sure you discuss any questions you have with your health care provider. Document Released: 04/22/2003 Document Revised: 04/14/2018 Document Reviewed: 11/05/2016 [employer] Patient Education 2020 [employer]. Follow Up Care 07/10/2023 18:01:14 With:Discharge to [facility] Level of Care Address:Unknown When:1-2 days With:JOEL LACY MD Address: [address] [place] [address] [address] [phone] When:5 to 7 days With:Home Health Care (PT/OT) provided by [facility] Address: [phone] When:1-2 days With:BERNIE REAGAN MD Address: [address] [place] [id number] [phone] When:1-2 days With:ELMA SANTIAGO MD Address: [address] [place] [address] [address] [place] [address]- [phone] When:08/22/2023 10:45:00 [facility] 02-29-2024 Note Discharge Instructions Thank you for allowing [facility] to assist you with your healthcare needs. The following is importantdischarge information regarding your hospital visit. Your Care Team BERNIE REAGAN MD Your Diagnosis A-fib Acute hypoxic respiratory failure Cystitis Encephalopathy acute Fall Hyponatremia Influenza A Pneumonia Type 2 diabetes mellitus Weakness What to do next Scheduled Follow-Up Appointments Appointment Type When Where [facility] Follow Up 08/18/2023 01:45 PM EDT [facility] Follow Up Appointments Follow Up with ELMA SANTIAGO MD When 08/22/2023 10:45 AM EDT Where: [address] [facility] [address] [place] [address]- [phone] Follow Up with Discharge to [facility] Level of Care When Within 1-2 days Follow Up with JOEL LCAY MD When Within 5 to 7 days Where: [address] [facility] [address] [place] [address]- [phone] Follow Up with Home Health Care (PT/OT) provided by [facility] When Within 1-2 days Where: [phone] Follow Up with BERNIE REAGAN MD When Within 1-2 days Where: [address] [place] [address]- [phone] The Following Activity and Diet Have Been Ordered for You Transfer of Care Activity - Ordered -- Activity As Tolerated, 07/14/23 11:00:00 EST Transfer of Care Diet - Ordered -- Type of Diet: Regular Diet, 07/14/23 11:00:00 EST The Following Equipment Has Been Ordered for You No qualifying data available. The Following Treatments Have Been Ordered for You Discharge Labs No qualifying data available. Discharge Radiology No qualifying data available. Other Therapies No qualifying data available. Post Acute Orders Transfer of Care Code Status - Ordered -- DNRCC-Arrest Intubate & Mechanical Vent, Constant Order Transfer of Care Orders Electronically Signed By - Ordered -- 07/14/23 11:00:00 JUAN MANUEL ANTUNEZ TODD L MD Transfer of Care Prognosis - Ordered -- Fair, Patient Aware: Yes Transfer of Care Rehab Potential - Ordered -- Rehab potential fair, 07/14/23 11:00:20 EST Someone Will Contact You Regarding These Home Health Referrals No home referrals have been ordered for you. No one will call you. Allergies Monopril pioglitazone Medications Please ask your primary doctor or pharmacist before taking any other medication not listed, including over the counter drugs, herbal medications, vitamins and or supplements as they may interact withyour home medications. What How Much When Instructions Last Dose New dofetilide (Tikosyn 250 mcg oral capsule) 1 cap by mouth Every 12 hours Refills: 3 Pickup at [facility] New ferrous sulfate (IRON (ferrous sulfate 325 mg) 65 mg oral tablet) 1 tab(s) by mouth Once a day with a meal Refills: 3 Pickup at [facility] Changed acetaminophen (Tylenol 325 mg oral capsule) 650 Milligram by mouth Every 4 hours as needed for Pain, scale 1-3 Changed amLODIPine (amLODIPine 5 mg oral tablet) 1 tab(s) by mouth Once a day Pickup at [facility] Changed atorvastatin (atorvastatin 40 mg oral tablet) 1 tab(s) by mouth Once a day Pickup at [facility] Changed metoprolol (metoprolol succinate 50 mg oral TABLET extended release) 1 tab(s) by mouth Once a day Pickup at [facility]/pharmacy #[id number] Unchanged apixaban (Eliquis 5 mg oral tablet) 1 tab(s) by mouth Two (2) times a day Unchanged cholecalciferol (Vitamin D3) 50 Microgram by mouth Every day Unchanged docusate (Colace 100 mg oral capsule) 1 cap by mouth Two (2) times a day as needed for Constipation Unchanged docusate-senna (docusate-senna 50 mg-8.6 mg oral tablet) 2 tab(s) by mouth Daily at bedtime Unchanged furosemide (furosemide 20 mg oral tablet) 1 tab(s) by mouth Once a day Unchanged glimepiride (glimepiride 4 mg oral tablet) 1 tab(s) by mouth Two (2) times a day Unchanged metFORMIN (metFORMIN 1000 mg oral tablet (IR)) 1 tab(s) by mouth Two (2) times a day Unchanged multivitamin (Multivitamin) 1 tab(s) by mouth Once a day Unchanged oxybutynin (oxybutynin 15 mg/ 24 hr oral tablet, extended release) 1 tab(s) by mouth Two (2) times a day Unchanged polyethylene glycol 3350 (MiraLax oral powder for reconstitution) by mouth Once a day as needed for Constipation Unchanged sertraline (sertraline 100 mg oral tablet) 1 tab(s) by mouth Once a day Pharmacy Information [facility]: [address] [place] [address] [phone] [facility]/pharmacy #[id number]: [address] [place], [place] [phone] What How Much When Comments Stop Taking dilTIAZem (DilTIAZem (Eqv-Cardizem CD) 240 mg/ 24 hours oral capsule, extended release) 1 cap by mouth Once a day Stop Taking ferrous gluconate (ferrous gluconate 324 mg (38 mg elemental iron) oral tablet) 1 tab(s) by mouth Once a day Stop Taking insulin lispro (HumaLOG) (HumaLOG 100 units/ mL subcutaneous solution) Give 0-5 units/dose Subcutaneous Three (3) times a day before meals Please take this list to your next doctor s visit. Bring all medications you take, including over the counter medications, herbals and other supplements with you to your doctor s visit. Patients and families are reminded to discard old lists and to update any records with all medication providers or retail pharmacies. Medication Leaflets amlodipine (am SAMEER bhat) George Washburn Norvasc What is the most important information I should know about amlodipine? Use only as directed. Tell your doctor if you use other medicines or have other medical conditions or allergies. What is amlodipine? Amlodipine is used in adults alone or in combination with other medicines to treat chest pain (angina) and other conditions caused by coronary artery disease. Amlodipine is also used alone or in combination with other medicines to treat high blood pressure (hypertension) in adults and children at least 6 years old. Lowering blood pressure may lower your risk of a stroke or heart attack. Amlodipine may also be used for purposes not listed in this medication guide. What should I discuss with my healthcare provider before taking amlodipine? You should not take amlodipine if you are allergic to it. Tell your doctor if you have ever had: severe narrowing of a certain valve in your heart (aortic stenosis), or other heart problems; coronary artery disease (clogged arteries); or liver disease. It is not known if amlodipine will harm an unborn baby. However, having high blood pressure during may cause complications or medical problems in both mother and baby. The benefit of treating hypertension may outweigh any risks to the baby. Tell your doctor if you are . How should I take amlodipine? Follow all directions on your prescription label and read all medication guides or instruction sheets. Your doctor may occasionally change your dose. Use the medicine exactly as directed. Amlodipine is usually taken once per day. Take the medicine at the same time each day, with or without food. Shake the oral suspension (liquid). Measure a dose with the supplied measuring device (not a kitchen spoon). Your blood pressure will need to be checked often. If you have high blood pressure, keep using this medicine even if you feel well. High blood pressure often has no symptoms. Do not change your doses or stop taking any of your medications without your doctor's advice. Your treatment may also include diet, exercise, weight control, and blood tests. Store amlodipine tablets and oral solution (liquid) at room temperature away from moisture, heat, and light. Store amlodipine oral suspension in the refrigerator, do not freeze. What happens if I miss a dose? Take the medicine as soon as you can, but skip the missed dose if you are more than 12 hours late for the dose. Do not take two doses at one time. What happens if I overdose? Seek emergency medical attention or call the Poison Help line at . Overdose symptoms may include rapid heartbeats, redness or warmth in your arms or legs, or fainting. What should I avoid while taking amlodipine? Avoid getting up too fast from a sitting or lying position, or you may feel dizzy. What are the possible side effects of amlodipine? Get emergency medical help if you have signs of an allergic reaction: hives; difficulty breathing; swelling of your face, lips, tongue, or throat. In rare cases, when you first start taking amlodipine, your chest pain may get worse or you could have a heart attack. Seek emergency medical attention or call your doctor right away if you have symptoms such as: chest pain or pressure, pain spreading to your jaw or shoulder, nausea, sweating. Call your doctor at once if you have: worsening chest pain; or a light-headed feeling, like you might pass out. Common side effects may include: dizziness, drowsiness; swelling of your legs or ankles; irregular heartbeat; pounding heartbeats or fluttering in your chest; muscle stiffness; uncontrolled muscle movements; feeling tired; stomach pain, nausea; or flushing (sudden warmth, redness, or tingly feeling). This is not a complete list of side effects and others may occur. Call your doctor for medical advice about side effects. You may report side effects to FDA at 4-690-GLC-4952. What other drugs will affect amlodipine? Sometimes it is not safe to use certain medicines at the same time. Some drugs can affect your blood levels of other drugs you use, which may increase side effects or make the medicines less effective. Other drugs may affect amlodipine, including prescription and jejn-drm-avostrx medicines, vitamins,and herbal products. Tell your doctor about all other medicines you use. Where can I get more information? Your doctor or pharmacist can provide more information about amlodipine. Remember, keep this and all other medicines out of the reach of children, never share your medicines with others, and use this medication only for the indication prescribed. Every effort has been made to ensure that the information provided by [employer] ( [employer] ). ('[employer]') is accurate, up-to-date, and complete, but no guarantee is made to that effect. Drug information contained herein may be time sensitive. [employer] information has been compiled for use by healthcare practitioners and consumers in the [place] and therefore [employer] does not warrant that uses outside of the [place] are appropriate, unless specifically indicated otherwise. [employer] drug information does not endorse drugs, diagnose patients or recommend therapy. [employer] drug information isan informational resource designed to assist licensed healthcare practitioners in caring for their p atients and/or to serve consumers viewing this service as a supplement to, and not a substitute for, the expertise, skill, knowledge and judgment of healthcare practitioners. The absence of a warningfor a given drug or drug combination in no way should be construed to indicate that the drug or drug combination is safe, effective or appropriate for any given patient. [employer] does not assume any responsibility for any aspect of healthcare administered with the aid of information [employer] provides. The information contained herein is not intended to cover all possible uses, directions, precautions, warnings, drug interactions, allergic reactions, or adverse effects. If you have questions about the drugs you are taking, check with your doctor, nurse or pharmacist. Copyright 6044-9250 [employer] ( [employer] ). Version: 16.. Revision Date: 09/23/2022. dofetilide (simon FET i lide) Tikosyn What is the most important information I should know about dofetilide? You should not take dofetilide if you have severe kidney disease or a history of Long QT syndrome. Serious drug interactions can occur when certain medicines are used together with dofetilide. Tell each of your healthcare providers about all medicines you use now, and any medicine you start or stop using. You will need to spend at least 3 days in a hospital setting when you first start taking dofetilide. This is so your heart rhythm and kidney function can be monitored in case the medicine causes serious side effects. What is dofetilide? Dofetilide is a heart rhythm medicine, also called an antiarrhythmic. Dofetilide is used to help keep the heart beating normally in people with certain heart rhythm disorders of the atrium (the upper chambers of the heart that allow blood to flow into the heart). Dofetilide is used in people with atrial fibrillation or atrial flutter. Dofetilide may also be used for purposes not listed in this medication guide. What should I discuss with my health care provider before taking dofetilide? You should not take dofetilide if you are allergic to it, or if you have: severe kidney disease (or if you are on dialysis); or a history of Long QT syndrome. Some medicines can cause unwanted or dangerous effects when used with dofetilide, and should not beused at the same time. Your doctor may need to change your treatment plan if you use any of the following drugs: cimetidine; dolutegravir; ketoconazole; megestrol; prochlorperazine; trimethoprim (Proloprim, Trimpex, Bactrim, Septra); verapamil; or a diuretic (water pill) that contains hydrochlorothiazide (HCTZ), such as Accuretic, Aldactazide, Atacand HCT, Benicar HCT, Diovan HCT, Dyazide, Exforge HCT, Hyzaar, Lopressor HCT, Maxzide, Micardis HCT, Monopril HCT, Prinzide, Tekturna HCT, Vaseretic, and others. To make sure dofetilide is safe for you, tell your doctor if you have: heart disease, high blood pressure; liver or kidney disease; depression, mental illness; asthma or allergies; any active infection; skin problems; or an electrolyte imbalance (such as low levels of potassium or magnesium in your blood). It is not known whether this medicine will harm an unborn baby. Tell your doctor if you are or plan to become while using this medicine. It is not known whether dofetilide passes into breast milk or if it could harm a nursing baby. You should not breast-feed while you are using dofetilide. How should I take dofetilide? Dofetilide is available only from a hospital or specialty pharmacy. You will need to spend at least 3 days in a hospital setting when you first start taking dofetilide. This is so your heart rhythm and kidney function can be monitored in case the medicine causes serious side effects. Follow all directions on your prescription label. Do not take this medicine in larger or smaller amounts or for longer than recommended. You may take dofetilide with or without food. You should not skip doses or stop using dofetilide suddenly. Stopping suddenly may make your condition worse. Follow your doctor's instructions about tapering your dose. Tell your doctor if you have a prolonged illness that causes severe diarrhea, vomiting, or heavy sweating. These conditions can cause an electrolyte imbalance, making it dangerous for you to use dofetilide. Your blood pressure will need to be checked often. Your kidney function may also need to be checkedwith frequent blood tests. Store at room temperature away from moisture and heat. What happens if I miss a dose? Skip the missed dose and take your next dose at the usual time to stay on schedule. Do not take extra medicine to make up the missed dose. What happens if I overdose? Seek emergency medical attention or call the Poison Help line at . What should I avoid while taking dofetilide? Grapefruit and grapefruit juice may interact with dofetilide and lead to unwanted side effects. Discuss the use of grapefruit products with your doctor. What are the possible side effects of dofetilide? Get emergency medical help if you have any of these signs of an allergic reaction: hives; difficultbreathing; swelling of your face, lips, tongue, or throat. Call your doctor at once if you have: headache with chest pain and severe dizziness, fainting, fast or pounding heartbeats; loss of appetite, vomiting or severe diarrhea; or low magnesium or potassium--confusion, uneven heart rate, increased thirst or urination, sweating, jerking muscle movements, leg discomfort, muscle weakness or limp feeling. Common side effects may include: mild headache; mild dizziness; or cold symptoms such as stuffy nose, sneezing, sore throat. This is not a complete list of side effects and others may occur. Call your doctor for medical advice about side effects. You may report side effects to FDA at 9-472-FOO-1699. What other drugs will affect dofetilide? Other drugs may interact with dofetilide, including prescription and reax-qja-rvjrjxz medicines, vitamins, and herbal products. Tell each of your health care providers about all medicines you use nowand any medicine you start or stop using. Where can I get more information? Your doctor or pharmacist can provide more information about dofetilide. Remember, keep this and all other medicines out of the reach of children, never share your medicines with others, and use this medication only for the indication prescribed. Every effort has been made to ensure that the information provided by [employer] ( [employer] ('[employer]') is accurate, up-to-date, and complete, but no guarantee is made to that effect. Drug information contained herein may be time sensitive. [employer] information has been compiled for use by healthcare practitioners and consumers in the [place] and therefore [employer] does not warrant that uses outside of the [place] are appropriate, unless specifically indicated otherwise. [employer] drug information does not endorse drugs, diagnose patients or recommend therapy. [employer] drug information isan informational resource designed to assist licensed healthcare practitioners in caring for their p atients and/or to serve consumers viewing this service as a supplement to, and not a substitute for, the expertise, skill, knowledge and judgment of healthcare practitioners. The absence of a warningfor a given drug or drug combination in no way should be construed to indicate that the drug or drug combination is safe, effective or appropriate for any given patient. [employer] does not assume any responsibility for any aspect of healthcare administered with the aid of information [employer] provides. The information contained herein is not intended to cover all possible uses, directions, precautions, warnings, drug interactions, allergic reactions, or adverse effects. If you have questions about the drugs you are taking, check with your doctor, nurse or pharmacist. Copyright 7432-1419 [employer] ( [employer] ). Version: 4.01. Revision Date: 08/27/2015. metoprolol (oral/injection) (me TOE pro lol) Kapspargo Sprinkle, Lopressor, Metoprolol Succinate ER, Metoprolol Tartrate, Toprol-XL What is the most important information I should know about metoprolol? You should not use this medicine if you have a serious heart problem (heart block, sick sinus syndrome, slow heart rate), severe circulation problems, severe heart failure, or a history of slow heartbeats that caused fainting. What is metoprolol? Metoprolol is a beta-fritz that affects the heart and circulation (blood flow through arteries and veins). Metoprolol is used to treat angina (chest pain) and hypertension (high blood pressure). It is also used to lower your risk of or needing to be hospitalized for heart failure. Metoprolol injection is used during the early phase of a heart attack to lower the risk of . Metoprolol may also be used for other purposes not listed in this medication guide. What should I discuss with my healthcare provider before taking metoprolol? You should not use this medicine if you are allergic to metoprolol, or other beta-blockers (atenolol, carvedilol, labetalol, nadolol, nebivolol, propranolol, sotalol, and others), or if you have: a serious heart problem such as heart block, sick sinus syndrome, or slow heart rate; severe circulation problems; severe heart failure (that required you to be in the hospital); or a history of slow heart beats that have caused you to faint. Tell your doctor if you have ever had: asthma, chronic obstructive pulmonary disease (COPD), sleep apnea, or other breathing disorder; diabetes (taking metoprolol may make it harder for you to tell when you have low blood sugar); liver disease; congestive heart failure; problems with circulation (such as Raynaud's syndrome); a thyroid disorder; or pheochromocytoma (tumor of the adrenal gland). Do not give this medicine to a child without medical advice. Tell your doctor if you are or plan to become . It is not known whether metoprololwill harm an unborn baby. However, having high blood pressure during may cause complications such as diabetes or eclampsia (dangerously high blood pressure that can lead to medical problemsin both mother and baby). The benefit of treating hypertension may outweigh any risks to the baby. Ask a doctor before using this medicine if you are breast-feeding. Metoprolol can pass into breast milk and may cause dry skin, dry mouth, diarrhea, constipation, or slow heartbeats in your baby. How should I take metoprolol? Follow all directions on your prescription label and read all medication guides or instruction sheets. Your doctor may occasionally change your dose. Use the medicine exactly as directed. Metoprolol should be taken with a meal or just after a meal. Take the medicine at the same time each day. Swallow the capsule whole and do not crush, chew, break, or open it. A Toprol XL tablet can be divided in half if your doctor has told you to do so. Swallow the half-tablet whole, without chewing or crushing. Measure liquid medicine carefully. Use the dosing syringe provided, or use a medicine dose-measuring device (not a kitchen spoon). You will need frequent medical tests, and your blood pressure will need to be checked often. If you need surgery, tell the surgeon ahead of time that you are using metoprolol. You should not stop using metoprolol suddenly. Stopping suddenly may make your condition worse. If you have high blood pressure, keep using this medicine even if you feel well. High blood pressure often has no symptoms. You may need to use metoprolol for the rest of your life. Store at room temperature away from moisture and heat. Metoprolol injection is given as an infusion into a vein. A healthcare provider will give you this injection in a medical setting where your heart and blood pressure can be monitored. Metoprolol injections are given for only a short time before switching you to the oral form of this medicine. What happens if I miss a dose? Skip the missed dose and use your next dose at the regular time. Do not use two doses at one time. What happens if I overdose? Seek emergency medical attention or call the Poison Help line at . What should I avoid while taking metoprolol? Avoid driving or hazardous activity until you know how this medicine will affect you. Your reactions could be impaired. Drinking alcohol can increase certain side effects of metoprolol. What are the possible side effects of metoprolol? Get emergency medical help if you have signs of an allergic reaction: hives; difficulty breathing; swelling of your face, lips, tongue, or throat. Call your doctor at once if you have: very slow heartbeats; a light-headed feeling, like you might pass out; shortness of breath (even with mild exertion), swelling, rapid weight gain; or cold feeling in your hands and feet. Common side effects may include: dizziness, tired feeling; depression, confusion, memory problems; nightmares, trouble sleeping; diarrhea; or mild itching or rash. This is not a complete list of side effects and others may occur. Call your doctor for medical advice about side effects. You may report side effects to FDA at 7-192-NSH-7802. What other drugs will affect metoprolol? Tell your doctor about all your current medicines. Many drugs can affect metoprolol, especially: any other heart or blood pressure medications; epinephrine (Epi-Pen); an antidepressant; an ergot medicine--dihydroergotamine, ergonovine, ergotamine, methylergonovine; or an MAO inhibitor--isocarboxazid, linezolid, phenelzine, rasagiline, selegiline, tranylcypromine. This list is not complete and many other drugs may affect metoprolol. This includes prescription and yfko-tcy-uglkjxt medicines, vitamins, and herbal products. Not all possible drug interactions are listed here. Where can I get more information? Your pharmacist can provide more information about metoprolol. Remember, keep this and all other medicines out of the reach of children, never share your medicines with others, and use this medication only for the indication prescribed. Every effort has been made to ensure that the information provided by [employer] ( [employer] ). ('[employer]') is accurate, up-to-date, and complete, but no guarantee is made to that effect. Drug information contained herein may be time sensitive. [employer] information has been compiled for use by healthcare practitioners and consumers in the [place] and therefore [employer] does not warrant that uses outside of the [place] are appropriate, unless specifically indicated otherwise. [employer] drug information does not endorse drugs, diagnose patients or recommend therapy. [employer] drug information isan informational resource designed to assist licensed healthcare practitioners in caring for their p atients and/or to serve consumers viewing this service as a supplement to, and not a substitute for, the expertise, skill, knowledge and judgment of healthcare practitioners. The absence of a warningfor a given drug or drug combination in no way should be construed to indicate that the drug or drug combination is safe, effective or appropriate for any given patient. [facility] does not assume any responsibility for any aspect of healthcare administered with the aid of information [facility] provides. The information contained herein is not intended to cover all possible uses, directions, precautions, warnings, drug interactions, allergic reactions, or adverse effects. If you have questions about the drugs you are taking, check with your doctor, nurse or pharmacist. Copyright 1003-7555 [employer] ( [employer] ). Version: .. Revision Date: 12/22/2022. Education Materials Atrial Fibrillation Atrial fibrillation is a type of heartbeat that is irregular or fast (rapid). If you have this condition, your heart beats without any order. This makes it hard for your heart to pump blood in a normal way. Having this condition gives you more risk for stroke, heart failure, and other heart problems. Atrial fibrillation may start all of a sudden and then stop on its own, or it may become a long-lasting problem. What are the causes? This condition may be caused by heart conditions, such as: High blood pressure. Heart failure. Heart valve disease. Heart surgery. Other causes include: Pneumonia. Obstructive sleep apnea. Lung cancer. Thyroid disease. Drinking too much alcohol. Sometimes the cause is not known. What increases the risk? You are more likely to develop this condition if: You smoke. You are older. You have diabetes. You are overweight. You have a family history of this condition. You exercise often and hard. What are the signs or symptoms? Common symptoms of this condition include: A feeling like your heart is beating very fast. Chest pain. Feeling short of breath. Feeling light-headed or weak. Getting tired easily. Follow these instructions at home: Medicines Take usnq-ilf-jxotuei and prescription medicines only as told by your doctor. If your doctor gives you a blood-thinning medicine, take it exactly as told. Taking too much of it can cause bleeding. Taking too little of it does not protect you against clots. Clots can cause a stroke. Lifestyle Do not use any tobacco products. These include cigarettes, chewing tobacco, and e-cigarettes. If you need help quitting, ask your doctor. Do not drink alcohol. Do not drink beverages that have caffeine. These include coffee, soda, and tea. Follow diet instructions as told by your doctor. Exercise regularly as told by your doctor. General instructions If you have a condition that causes breathing to stop for a short period of time (apnea), treat it as told by your doctor. Keep a healthy weight. Do not use diet pills unless your doctor says they are safe for you. Diet pills may make heart problems worse. Keep all follow-up visits as told by your doctor. This is important. Contact a doctor if: You notice a change in the speed, rhythm, or strength of your heartbeat. You are taking a blood-thinning medicine and you see more bruising. You get tired more easily when you move or exercise. You have a sudden change in weight. Get help right away if: You have pain in your chest or your belly (abdomen). You have trouble breathing. You have blood in your vomit, poop, or pee (urine). You have any signs of a stroke. BE FAST is an easy way to remember the main warning signs: ? B - Balance. Signs are dizziness, sudden trouble walking, or loss of balance. ? E - Eyes. Signs are trouble seeing or a change in how you see. ? F - Face. Signs are sudden weakness or loss of feeling in the face, or the face or eyelid drooping on one side. ? A - Arms. Signs are weakness or loss of feeling in an arm. This happens suddenly and usually on oneside of the body. ? S - Speech. Signs are sudden trouble speaking, slurred speech, or trouble understanding what peoplesay. ? T - Time. Time to call emergency services. Write down what time symptoms started. You have other signs of a stroke, such as: ? A sudden, very bad headache with no known cause. ? Feeling sick to your stomach (nausea). ? Throwing up (vomiting). ? Jerky movements you cannot control (seizure). These symptoms may be an emergency. Do not wait to see if the symptoms will go away. Get medical help right away. Call your local emergency services (911 in the [place] Do not drive yourself to the hospital. Summary Atrial fibrillation is a type of heartbeat that is irregular or fast (rapid). You are at higher risk of this condition if you smoke, are older, have diabetes, or are overweight. Follow your doctor's instructions about medicines, diet, exercise, and follow-up visits. Get help right away if you think that you have signs of a stroke. This information is not intended to replace advice given to you by your health care provider. Make sure you discuss any questions you have with your health care provider. Document Released: 02/08/2009 Document Revised: 07/06/2018 Document Reviewed: 06/23/2018 [employer] Patient Education 2020 [employer]. Electrical Cardioversion Electrical cardioversion is the delivery of a jolt of electricity to restore a normal rhythm to theheart. A rhythm that is too fast or is not regular keeps the heart from pumping well. In this procedure, sticky patches or metal paddles are placed on the chest to deliver electricity to the heart from a device. This procedure may be done in an emergency if: There is low or no blood pressure as a result of the heart rhythm. Normal rhythm must be restored as fast as possible to protect the brain and heart from further damage. It may save a life. This procedure may also be done for irregular or fast heart rhythms that are not immediately life-threatening. Tell a health care provider about: Any allergies you have. All medicines you are taking, including vitamins, herbs, eye drops, creams, and xmaf-pch-yynckfm medicines. Any problems you or family members have had with anesthetic medicines. Any blood disorders you have. Any surgeries you have had. Any medical conditions you have. Whether you are or may be . What are the risks? Generally, this is a safe procedure. However, problems may occur, including: Allergic reactions to medicines. A blood clot that breaks free and travels to other parts of your body. The possible return of an abnormal heart rhythm within hours or days after the procedure. Your heart stopping (cardiac arrest ). This is rare. What happens before the procedure? Medicines Your health care provider may have you start taking: ? Blood-thinning medicines (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) so your blood does not clot as easily. ? Medicines may be given to help stabilize your heart rate and rhythm. Ask your health care provider about changing or stopping your regular medicines. This is especiallyimportant if you are taking diabetes medicines or blood thinners. General instructions Plan to have someone take you home from the hospital or clinic. If you will be going home right after the procedure, plan to have someone with you for 24 hours. Follow instructions from your health care provider about eating or drinking restrictions. What happens during the procedure? To lower your risk of infection: ? Your health care team will wash or sanitize their hands. ? Your skin will be washed with soap. An IV tube will be inserted into one of your veins. You will be given a medicine to help you relax (sedative). Sticky patches (electrodes) or metal paddles may be placed on your chest. An electrical shock will be delivered. The procedure may vary among health care providers and hospitals. What happens after the procedure? Your blood pressure, heart rate, breathing rate, and blood oxygen level will be monitored until themedicines you were given have worn off. Do not drive for 24 hours if you were given a sedative. Your heart rhythm will be watched to make sure it does not change. This information is not intended to replace advice given to you by your health care provider. Make sure you discuss any questions you have with your health care provider. Document Released: 04/22/2003 Document Revised: 04/14/2018 Document Reviewed: 11/05/2016 [employer] Patient Education 2020 [employer]. Additional Information VACCINATE! IT SAVES LIVES! Members of the community who have not yet received the COVID-19 vaccine and would like to receive it can visit one of [facility] vaccine clinics. There are many vaccine clinic locations within the [facility]. For locations and available times, please visit [email or web address] It is important to note that some COVID mobile vaccine clinics are held outdoors and may be canceled in rainy or stormy conditions. To learn more about pediatric vaccinations (ages 5-11), we invite you to visit the [facility] webpage. [email or web address] learn more about the COVID-19 vaccine, we invite you to visit the CDC website for a list of frequently asked questions.https://www.cdc.gov/coronavirus/2019-ncov/vaccines/faq.html [employer] Patient Portal Access Instructions: Stay connected with your healthcare team and access your personal medical information anytime with the [employer] Patient Portal. Please follow the directions below to create your [facility] account: 1.Access the email account you provided upon registration to the hospital/physician office.2.Look for an invitation email from [facility].3.Open the email and access the invitation link: AcceptInvitation to [facility].4.Fill in the required cunha to create your account. To access your account, visit [email or web address]. Click the blue button labeled Access Patient Portal and then log in with the username and password that you created in the steps above. You will be able to view your test results, lab results, a summary of your visits, upcoming appointments and more. There is also a convenient messaging option where you can send secure messages to your p Pfenexvider. In addition, you will have the ability to download any documents or summaries to your computer and/or send the information securely to a physician. Remember that your healthcare information is confidential, so carefully consider who you will allowto register on the [facility] Patient Portal for access to your information. You can also access the [facility] Patient Portal on the [facility] [employer] alfonzo. Simply click on Patient Portal and then log into your account. If you would like to receive a full copy of your medical records, please contact the [facility] Medical Records Department by calling [phone], Tuesday through Tuesday between 8 a.m. and 4:30 p.m. HOW TO SAFELY DISPOSE OF PRESCRIPTION MEDICATIONS Please use one of the following methods to safely dispose of your unused medications. 1.Use a drug disposal kit: the drug disposal pouch allows you to safely discard your old and unuseddrugs. Ask your nurse to give you one when you are discharged.2.Visit a local take-back location: Many local pharmacies and police departments have programs that collect old and unwanted prescriptiondrugs. Call your local pharmacy or go to http://bit.ly/8N0Bi0z to find one close to you.3.Make use of household items: Use cat litter or old coffee grounds to dispose medications if other options arenot available. Mix your drugs with these household products, seal them in an airtight container andthrow it into the garbage. Call [facility]: [phone] to be sure your drugs can be disposed of in this way. Some medicines may require a different approach.4.Never flush your medications down the toilet. IF YOU HAVE BEEN PRESCRIBED AN OPIOID FOR PAIN If you have been prescribed an opioid (such as hydrocodone, oxycodone or morphine), it is critical to understand the possible side effects and risks of opioid pain medications. Even when taken as directed, opioids can have several side effects including: Tolerance, meaning you might need to take more of a medication for the same pain relief. Nausea, vomiting and/or constipation. Sleepiness, dizziness, dry mouth, confusion, depression or itching. Physical dependence, meaning you have withdrawal symptoms when a medication is stopped, can develop within a few days. KNOW YOUR RESPONSIBILITIES It is important to know exactly how much and how often to take the opioid pain medications you are prescribed. Never take opioids in higher amounts or more often than prescribed. Do not combine opioids with alcohol or other drugs that cause drowsiness, such as benzodiazepines, also known as benzos, including diazepam and alprazolam, muscle relaxants or sleep aids. Never sell or share prescription opioids. This is illegal. Store opioids in a secure place and out of reach of others (including children, family, friends and visitors). The last page of this document has been signed and retained as a CHART COPY. Signatures Patient Education Materials Atrial Fibrillation, Qfse-he-Stvu Electrical Cardioversion Medication Leaflets amlodipine, dofetilide, metoprolol (oral/injection) My discharge plan and instructions have been reviewed and explained to me and IVENKATESH CRISTIA understand my current condition and have read and understand these discharge instructions. I have received a written copy of the plan/instructions. If I have questions, I am aware that I should contact my doctor. 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: Date/Time: Relationship to Patient: Witness Name/Signature: Date/Time: ____ (more content not included)... [id number] Note Discharge Instructions Thank you for allowing [facility] to assist you with your healthcare needs. The following is importantdischarge information regarding your hospital visit. Your Care Team BERNIE REAGAN MD Your Diagnosis A-fib Acute hypoxic respiratory failure Cystitis Encephalopathy acute Fall Hyponatremia Influenza A Pneumonia Type 2 diabetes mellitus Weakness What to do next Scheduled Follow-Up Appointments Appointment Type When Where [facility] 08/18/2023 01:45 PM EDT [facility] Follow Up Appointments Follow Up with ELMA SANTIAGO MD When 08/22/2023 10:45 AM EDT Where: [address] [facility] [address] [place] [address]- [phone] Follow Up with Discharge to [facility] Level of [facility] When Within 1-2 days Follow Up with JOEL LACY MD When Within 5 to 7 days Where: [address] [facility] [address] [place] [address]- [phone] Follow Up with Home Health Care (PT/OT) provided by [facility] When Within 1-2 days Where: [phone] Follow Up with BERNIE REAGAN MD When Within 1-2 days Where: [address] [place] [address]- [phone] The Following Activity and Diet Have Been Ordered for You Transfer of Care Activity - Ordered -- Activity As Tolerated, 07/14/23 11:00:00 EST Transfer of Care Diet - Ordered -- Type of Diet: Regular Diet, 07/14/23 11:00:00 EST The Following Equipment Has Been Ordered for You No qualifying data available. The Following Treatments Have Been Ordered for You Discharge Labs No qualifying data available. Discharge Radiology No qualifying data available. Other Therapies No qualifying data available. Post Acute Orders Transfer of Care Code Status - Ordered -- DNRCC-Arrest Intubate & Mechanical Vent, Constant Order Transfer of Care Orders Electronically Signed By - Ordered -- 07/14/23 11:00:00 JUAN MANUEL ANTUNEZ TODD L MD Transfer of Care Prognosis - Ordered -- Fair, Patient Aware: Yes Transfer of Care Rehab Potential - Ordered -- Rehab potential betzaida, 07/14/23 11:00:20 EST Someone Will Contact You Regarding These Home Health Referrals No home referrals have been ordered for you. No one will call you. Allergies Monopril pioglitazone Medications Please ask your primary doctor or pharmacist before taking any other medication not listed, including over the counter drugs, herbal medications, vitamins and or supplements as they may interact withyour home medications. What How Much When Instructions Last Dose New dofetilide (Tikosyn 250 mcg oral capsule) 1 cap by mouth Every 12 hours Refills: 3 Pickup at [facility] New ferrous sulfate (IRON (ferrous sulfate 325 mg) 65 mg oral tablet) 1 tab(s) by mouth Once a day with a meal Refills: 3 Pickup at [facility] Changed acetaminophen (Tylenol 325 mg oral capsule) 650 Milligram by mouth Every 4 hours as needed for Pain, scale 1-3 Changed amLODIPine (amLODIPine 5 mg oral tablet) 1 tab(s) by mouth Once a day Pickup at [facility] Changed atorvastatin (atorvastatin 40 mg oral tablet) 1 tab(s) by mouth Once a day Pickup at [facility] Unchanged apixaban (Eliquis 5 mg oral tablet) 1 tab(s) by mouth Two (2) times a day Unchanged cholecalciferol (Vitamin D3) 50 Microgram by mouth Every day Unchanged docusate (Colace 100 mg oral capsule) 1 cap by mouth Two (2) times a day as needed for Constipation Unchanged docusate-senna (docusate-senna 50 mg-8.6 mg oral tablet) 2 tab(s) by mouth Daily at bedtime Unchanged furosemide (furosemide 20 mg oral tablet) 1 tab(s) by mouth Once a day Unchanged glimepiride (glimepiride 4 mg oral tablet) 1 tab(s) by mouth Two (2) times a day Unchanged insulin lispro (HumaLOG) (HumaLOG 100 units/ mL subcutaneous solution) Give 0-5 units/dose Subcutaneous Three (3) times a day before meals Unchanged metFORMIN (metFORMIN 1000 mg oral tablet (IR)) 1 tab(s) by mouth Two (2) times a day Unchanged metoprolol (Metoprolol Tartrate 100 mg oral tablet) 1 tab(s) by mouth Two (2) times a day Unchanged multivitamin (Multivitamin) 1 tab(s) by mouth Once a day Unchanged oxybutynin (oxybutynin 15 mg/ 24 hr oral tablet, extended release) 1 tab(s) by mouth Two (2) times a day Unchanged polyethylene glycol 3350 (MiraLax oral powder for reconstitution) by mouth Once a day as needed for Constipation Unchanged sertraline (sertraline 100 mg oral tablet) 1 tab(s) by mouth Once a day Pharmacy Information [facility]: [address] [place] [address] [phone] What How Much When Comments Stop Taking dilTIAZem (DilTIAZem (Eqv-Cardizem CD) 240 mg/ 24 hours oral capsule, extended release) 1 cap by mouth Once a day Stop Taking ferrous gluconate (ferrous gluconate 324 mg (38 mg elemental iron) oral tablet) 1 tab(s) by mouth Once a day Please take this list to your next doctor s visit. Bring all medications you take, including over the counter medications, herbals and other supplements with you to your doctor s visit. Patients and families are reminded to discard old lists and to update any records with all medication providers or retail pharmacies. Additional Information VACCINATE! IT SAVES LIVES! Members of the community who have not yet received the COVID-19 vaccine and would like to receive it can visit one of [facility] vaccine clinics. There are many vaccine clinic locations within the [facility]. For locations and available times, please visit [email or web address] It is important to note that some COVID mobile vaccine clinics are held outdoors and may be canceled in rainy or stormy conditions. To learn more about pediatric vaccinations (ages 5-11), we invite you to visit the [facility] webpage. [email or web address] learn more about the COVID-19 vaccine, we invite you to visit the CDC website for a list of frequently asked questions.https://www.cdc.gov/coronavirus/2019-ncov/vaccines/faq.html [facility] Patient Portal Access Instructions: Stay connected with your healthcare team and access your personal medical information anytime with the [facility] Patient Portal. Please follow the directions below to create your [facility] account: 1.Access the email account you provided upon registration to the hospital/physician office.2.Look for an invitation email from [facility].3.Open the email and access the invitation link: AcceptInvitation to [facility].4.Fill in the required cunha to create your account. To access your account, visit [email or web address]. Click the blue button labeled Access Patient Portal and then log in with the username and password that you created in the steps above. You will be able to view your test results, lab results, a summary of your visits, upcoming appointments and more. There is also a convenient messaging option where you can send secure messages to your p rovider. In addition, you will have the ability to download any documents or summaries to your computer and/or send the information securely to a physician. Remember that your healthcare information is confidential, so carefully consider who you will allowto register on the [facility] Patient Portal for access to your information. You can also access the [facility] Patient Portal on the [facility] alfonzo. Simply click on Patient Portal and then log into your account. If you would like to receive a full copy of your medical records, please contact the [facility] Medical Records Department by calling [phone], Tuesday through Tuesday between 8 a.m. and 4:30 p.m. HOW TO SAFELY DISPOSE OF PRESCRIPTION MEDICATIONS Please use one of the following methods to safely dispose of your unused medications. 1.Use a drug disposal kit: the drug disposal pouch allows you to safely discard your old and unuseddrugs. Ask your nurse to give you one when you are discharged.2.Visit a local take-back location: Many local pharmacies and police departments have programs that collect old and unwanted prescriptiondrugs. Call your local pharmacy or go to http://bit.ly/4A3Df6e to find one close to you.3.Make use of household items: Use cat litter or old coffee grounds to dispose medications if other options arenot available. Mix your drugs with these household products, seal them in an airtight container andthrow it into the garbage. Call [facility]: [phone] to be sure your drugs can be disposed of in this way. Some medicines may require a different approach.4.Never flush your medications down the toilet. IF YOU HAVE BEEN PRESCRIBED AN OPIOID FOR PAIN If you have been prescribed an opioid (such as hydrocodone, oxycodone or morphine), it is critical to understand the possible side effects and risks of opioid pain medications. Even when taken as directed, opioids can have several side effects including: Tolerance, meaning you might need to take more of a medication for the same pain relief. Nausea, vomiting and/or constipation. Sleepiness, dizziness, dry mouth, confusion, depression or itching. Physical dependence, meaning you have withdrawal symptoms when a medication is stopped, can develop within a few days. KNOW YOUR RESPONSIBILITIES It is important to know exactly how much and how often to take the opioid pain medications you are prescribed. Never take opioids in higher amounts or more often than prescribed. Do not combine opioids with alcohol or other drugs that cause drowsiness, such as benzodiazepines, also known as benzos, including diazepam and alprazolam, muscle relaxants or sleep aids. Never sell or share prescription opioids. This is illegal. Store opioids in a secure place and out of reach of others (including children, family, friends and visitors). The last page of this document has been signed and retained as a CHART COPY. Signatures Patient Education Materials Medication Leaflets My discharge plan and instructions have been reviewed and explained to me and I,JOSELINE ELLIS understand my current condition and have read and understand these discharge instructions. I have received a written copy of the plan/instructions. If I have questions, I am aware that I should contact my doctor. 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: Date/Time: Relationship to Patient: Witness Name/Signature: Date[facility]Time[id number] Cardiology Progress note Date of Service July 14, 2023 Split/shared visit with Dr. Lacy (Primary EP: Dr. Lacy) Chief Complaint Remains in sinus rhythm/sinus bradycardia, heart rates averaging in the 50-60bpm range Dofetilide loading complete QT interval remains stable Subjective Patient currently resting comfortably in bed. She denies any acute complaints at this time. Objective Vitals and Measurements T: 36.7 C (Axillary) TMIN: 36.4 C (Axillary) TMAX: 36.8 C (Axillary) HR: 63(Monitored) HR: 68(Apical) HR: 68(Apical) RR: 18 BP: 182/78 SpO2: 98% Intake and Output 7AM Yesterday to 7AM Today Intake and Output (Last 24 hours) Intake Oral Intake 840.00 Supplement Intake 300.00 Output Urine Voided 225.00 Urinary Catheter Output: 1225.00 Stool Count 1.00 Emesis Count 1.00 Total Summary Total Intake 1140.00 Total Output 1450.00 Fluid Balance -310.00 Physical Exam GENERAL: No acute distress. PSYCHIATRIC: Alert and oriented, cooperative. Affect normal. HEAD: Normocephalic/atraumatic. ENT: Mucus membranes pink/moist. NECK: Supple. No gross thyromegaly noted. CARDIAC: Regular S1S2 present. RESPIRATORY: Regular rate and depth; no distress. No conversational dyspnea noted. ABDOMEN: Soft, nontender. Positive bowel sounds. EXTREMITIES: Adequately perfused. NEURO: Cranial Nerves II-XII grossly intact. MUSCULOSKELETAL: Strength/tone equal bilaterally. DERM: Warm/dry. Weight Dosing Weight: 89 kg (07/10/23) Medications Medications (30) Active Scheduled: (14) amLODIPine 5 mg tablet 5 mg 1 tab(s), Oral, qDay apixaban 5 mg tablet 5 mg 1 tab(s), Oral, BID atorvastatin 40 mg tablet 40 mg 1 tab(s), Oral, qDay docusate-senna (Senokot S) 50 mg-8.6 mg Tablet 2 tab(s), Oral, qHS dofetilide 250 mcg capsule 250 mcg 1 cap(s), Oral, q12hr ferrous sulfate 325 mg Tablet 325 mg 1 tab(s), Oral, qDayM furosemide 20 mg tablet 20 mg 1 tab(s), Oral, Daily insulin lispro 100 units/mL Soln (3 mL) Give 0-5 units/dose, Subcutaneous, TIDAC metoprolol succinate 100 mg ER tablet 100 mg 1 tab(s), Oral, BID Misc communication order 1 EA, Miscellaneous, Daily mupirocin 2% Ointment 22 Gram(s) tube 1 alfonzo, Topical, TID oseltamivir 75 mg capsule 75 mg 1 cap(s), Oral, BID oxybutynin 5 mg ER tablet 15 mg 3 tab(s), Oral, BID sertraline 100 mg tablet 100 mg 1 tab(s), Oral, qDay Continuous: (0) PRN: (16) acetaminophen 325 mg Tablet 650 mg 2 tab(s), Oral, q4h acetaminophen 325 mg Tablet 650 mg 2 tab(s), Oral, q4h albuterol - ipratropium 2.5 mg-0.5 mg/3 mL Inhal Laquita UD 3 mL, Inhalation, q4hRT dextrose 50% Solution Disp syringe 50 mL 12.5 gram(s) 25 mL, IV Push, AsDirected magnesium sulfate 4 gram(s)/100mL PMX 4 g 100 mL, IV Piggyback, AsDirected magnesium sulfate 50% (500mg/mL) 6 g 12 mL, IV Piggyback, AsDirected magnesium sulfate PMX 2 g 50 mL, IV Piggyback, AsDirected magnesium sulfate PMX 2 g 50 mL, IV Piggyback, qDay melatonin 3 mg tablet 3 mg 1 tab(s), Oral, qHS polyethylene glycol 3350 - UD packet 17 gram(s) 15 mL, Oral, qDay potassium bicarbonate-citric acid 20 mEq EFF tablet 20 mEq 1 tab(s), Oral, qDay potassium bicarbonate-citric acid 20 mEq EFF tablet 40 mEq 2 tab(s), Oral, qDay potassium chloride (PMX) 20 mEq/100 mL 20 mEq 100 mL, IV Piggyback, AsDirected potassium chloride 20 mEq ER tablet 20 mEq 1 tab(s), Oral, AsDirected potassium chloride 20 mEq ER tablet 40 mEq 2 tab(s), Oral, AsDirected potassium chloride 20 mEq ER tablet 40 mEq 2 tab(s), Oral, AsDirected Lab Results 03:36 WBC: 3.4 L Hgb: 12.1 Hct: 36.0 Platelet: 163 Neutrophil %: 61.4 Glucose Level: 97 Sodium Level: 136 Potassium Level: 4.2 BUN: 36.0 H Creatinine Lvl (s): 1.03 07/13 05:02 WBC: 4.1 L Hgb: 13.0 Hct: 38.8 Platelet: 141 L Neutrophil %: 73.5 Glucose Level: 93 Sodium Level: 134 L Potassium Level: 4.1 BUN: 39.0 H Creatinine Lvl (s): 1.16 EKG EKG - Discontinued -- 07/13/23 0:30:00 EST EKG - Completed -- 07/13/23 9:40:00 EST EKG - Completed -- 07/13/23 9:42:00 EST, Upon arrival to nursing unit, Complete by Nursing EKG - Completed -- 07/13/23 12:45:00 EST Electrocardiogram (EKG) - Ordered -- 07/13/23 16:01:00 EST Electrocardiogram (EKG) - Ordered -- 07/14/23 0:30:00 EST Electrocardiogram (EKG) - Ordered -- 07/14/23 11:30:00 EST Assessment/Plan 1. Recurrent atrial fibrillation/flutter, s/p DCCV (07/13/23) ---> Stage 3 per 2022 ACC guidelines --- Antiarrhythmic- dofetilide 250mcg q12hr --> Successfully loaded as of yesterday (07/14/23). QT interval remains stable to present. Rate Control- metoprolol succinate 100mg BID --> reducing to 50mg once daily starting tomorrow (07/15/23) --> Diltiazem discontinued yesterday (07/13/23) d/t mild sinus bradycardia s/p DCCV. --> Hold parameters in place for HR <60bpm. OAC- Eliquis 5mg BID ---- Telemetry reviewed- demonstrates sinus rhythm/sinus bradycardia with heart rates averaging in the 50-60bpm range. --> Underwent successful DCCV yesterday (07/13/23) and has remained in sinus rhythm/sinus bradycardia since that time. --> Metoprolol succinate reduced as detailed above. ---- Creatinine clearance 71mL/min. Most recent labs reviewed- potassium 4.2 / magnesium 2.0 --> Goal K >4, Mag >2 --> Daily BMP/magnesium level --> PRN electrolyte repletion protocol ---- Consider ablative therapies (PVI + CTI line) as an outpatient. 2. LEIGH ANN on CPAP Recommend good treatment as poor control heightens risk for increased AF burden through autonomic-mediated activation of triggers. 3. Hypertension Recommend good treatment as poor control heightens risk for increased AF burden through autonomic-mediated activation of triggers. 4. Acute influenza A infection Noted. In droplet isolation. 5. Acute hypoxic respiratory failure Multifactorial. On room air now. 6. Overweight Data suggests that exercise to improve cardiorespiratory fitness as well as weight loss of at least10% of body weight has been associated with improvement in atrial fibrillation management and a decrease in recurrences. ------- Plan: - Continue Tikosyn 250mcg every 12 hours (loading complete) - Reduce metoprolol succinate to 50mg once daily starting tomorrow (07/15/23), hold for HR <60bpm - Please notify EP should the patient start exhibiting ventricular arrhythmias including frequent PVCs/NSVT or if QTc measures greater than 500ms/20% or greater increase from previous reading - Goal K >4, Mag >2 - As needed potassium/magnesium supplementation ordered - BMP/Magnesium Level qAM --> Anticipate clearance for discharge home tomorrow from an EP standpoint. Additional recommendations to follow if indicated per attending EP Dr. Lacy (see addendum once available). KARLENE Colmenares- Nurse Practitioner - Cardiac Electrophysiology [phone] Connect Messenger Digitally Signed by ELLEN RAMESH PAINTER SKI EDGE-PANTOGRAPH WATCHER on 07/14/2023 11:17 AM Digitally Signed by JOEL LACY MD [facility] [id number] Cardiology Progress note Date of Service July 13, 2023 Split/shared visit with Dr. Lacy (Primary EP: Dr. Lacy) Chief Complaint Underwent DCCV this AM, remains in sinus rhythm at this time Dofetilide loading in progress Remains on 4L supplemental O2 via nasal cannula Droplet isolation precautions in place d/t active influenza A infection Subjective Patient resting comfortably in bed. She states she is feeling much better since undergoing DCCV. Objective Vitals and Measurements T: 36.1 C (Temporal Artery) TMIN: 36.1 C (Temporal Artery) TMAX: 37.0 C (Oral) HR: 52(Monitored) RR: 18 BP: 105/56 SpO2: 96% Intake and Output 7AM Yesterday to 7AM Today Intake and Output (Last 24 hours) Intake Administration Information 50.00 Oral Intake 650.00 Output Urinary Catheter Output: 1250.00 Stool Count 0.00 Total Summary Total Intake 700.00 Total Output 1250.00 Fluid Balance -550.00 Physical Exam GENERAL: No acute distress. PSYCHIATRIC: Alert and oriented, cooperative. Affect normal. HEAD: Normocephalic/atraumatic. ENT: Mucus membranes pink/moist. NECK: Supple. No gross thyromegaly noted. CARDIAC: Regular S1S2 present. RESPIRATORY: Regular rate and depth; no distress. No conversational dyspnea noted. On 4L via nasal cannula. ABDOMEN: Soft, nontender. Positive bowel sounds. EXTREMITIES: Adequately perfused. NEURO: Cranial Nerves II-XII grossly intact. MUSCULOSKELETAL: Strength/tone equal bilaterally. DERM: Warm/dry. Weight Dosing Weight: 89 kg (07/10/23) Medications Medications (30) Active Scheduled: (14) amLODIPine 5 mg tablet 5 mg 1 tab(s), Oral, qDay apixaban 5 mg tablet 5 mg 1 tab(s), Oral, BID atorvastatin 40 mg tablet 40 mg 1 tab(s), Oral, qDay diltiazem 60 mg tablet 60 mg 1 tab(s), Oral, QID docusate-senna (Senokot S) 50 mg-8.6 mg Tablet 2 tab(s), Oral, qHS dofetilide 250 mcg capsule 250 mcg 1 cap(s), Oral, q12hr ferrous sulfate 325 mg Tablet 325 mg 1 tab(s), Oral, qDayM insulin lispro 100 units/mL Soln (3 mL) Give 0-5 units/dose, Subcutaneous, TIDAC metoprolol succinate 100 mg ER tablet 100 mg 1 tab(s), Oral, BID Misc communication order 1 EA, Miscellaneous, Daily mupirocin 2% Ointment 22 Gram(s) tube 1 alfonzo, Topical, TID oseltamivir 75 mg capsule 75 mg 1 cap(s), Oral, BID oxybutynin 5 mg ER tablet 15 mg 3 tab(s), Oral, BID sertraline 100 mg tablet 100 mg 1 tab(s), Oral, qDay Continuous: (0) PRN: (16) acetaminophen 325 mg Tablet 650 mg 2 tab(s), Oral, q4h acetaminophen 325 mg Tablet 650 mg 2 tab(s), Oral, q4h albuterol - ipratropium 2.5 mg-0.5 mg/3 mL Inhal Laquita UD 3 mL, Inhalation, q4hRT dextrose 50% Solution Disp syringe 50 mL 12.5 gram(s) 25 mL, IV Push, AsDirected magnesium sulfate 4 gram(s)/100mL PMX 4 g 100 mL, IV Piggyback, AsDirected magnesium sulfate 50% (500mg/mL) 6 g 12 mL, IV Piggyback, AsDirected magnesium sulfate PMX 2 g 50 mL, IV Piggyback, AsDirected magnesium sulfate PMX 2 g 50 mL, IV Piggyback, qDay melatonin 3 mg tablet 3 mg 1 tab(s), Oral, qHS polyethylene glycol 3350 - UD packet 17 gram(s) 15 mL, Oral, qDay potassium bicarbonate-citric acid 20 mEq EFF tablet 20 mEq 1 tab(s), Oral, qDay potassium bicarbonate-citric acid 20 mEq EFF tablet 40 mEq 2 tab(s), Oral, qDay potassium chloride (PMX) 20 mEq/100 mL 20 mEq 100 mL, IV Piggyback, AsDirected potassium chloride 20 mEq ER tablet 20 mEq 1 tab(s), Oral, AsDirected potassium chloride 20 mEq ER tablet 40 mEq 2 tab(s), Oral, AsDirected potassium chloride 20 mEq ER tablet 40 mEq 2 tab(s), Oral, AsDirected Lab Results 07/13 05:02 WBC: 4.1 L Hgb: 13.0 Hct: 38.8 Platelet: 141 L Neutrophil %: 73.5 Glucose Level: 93 Sodium Level: 134 L Potassium Level: 4.1 BUN: 39.0 H Creatinine Lvl (s): 1.16 07/12 03:59 WBC: 3.1 L Hgb: 12.8 Hct: 38.7 Platelet: 180 Neutrophil %: 62.1 Glucose Level: 61 L Sodium Level: 133 L Potassium Level: 3.8 BUN: 29.0 H Creatinine Lvl (s): 1.35 H Imaging Results and Diagnostics XR Humerus Minimum 2 Views Right Result Date: July 11, 2023 Verified By: KAN BRADLEY MD CLINICAL STATEMENT: IMPRESSION: 1. Chronic appearing fracture of the distal humerus.2. Degenerative changes of the shoulder and acromioclavicular joint.3. Lucency surrounding the elbow prosthesis could be representativeof loosening, infection, or particle disease. XR Chest 1 View Result Date: July 10, 2023 Verified By: FATEMEH GEORGES MD CLINICAL STATEMENT: IMPRESSION: No significant interval change. To further characterize the right humeral findings, dedicated right humeral radiographs are recommended. I have personally reviewed the images of this examination and agree with the resident's findings and interpretation. EKG EKG - Completed -- 07/10/23 21:37:00 EST EKG - Completed -- 07/11/23 13:30:00 EST, Post Tikosyn EKG [AOH] - Completed -- 07/12/23 0:00:00 EST Electrocardiogram (EKG) - InProcess -- 07/12/23 12:00:00 EST, Post 3rd Tikosyn dose Electrocardiogram (EKG) - InProcess -- 07/13/23 1:00:00 EST Electrocardiogram (EKG) - Ordered -- 07/13/23 9:40:00 EST Electrocardiogram (EKG) - Ordered -- 07/13/23 9:42:00 EST, Upon arrival to nursing unit, Complete by Nursing Assessment/Plan 1. Recurrent atrial fibrillation/flutter, s/p DCCV (07/13/23) ---> Stage 3 per 2022 ACC guidelines --- Antiarrhythmic- dofetilide 250mcg q12hr (dose #5 pending this AM) Rate Control- diltiazem IR 60mg QID --> discontinued (see below for details), metoprolol succinate 100mg BID --> Hold parameters in place for HR <60bpm OAC- Eliquis 5mg BID ---- Telemetry reviewed- demonstrates sinus rhythm/sinus bradycardia with heart rates in the 50-60bpm range. --> Underwent successful DCCV this AM. --> Will stop diltiazem secondary to sinus bradycardia. May eventually need to reduce metoprololsuccinate dosing as well. ---- Creatinine clearance 71mL/min. Most recent labs reviewed- potassium 4.1 / magnesium 2.0 --> Goal K >4, Mag >2 --> Daily BMP/magnesium level --> PRN electrolyte repletion protocol ---- EKG s/p DCCV demonstrates stable QT interval, thus we will continue dofetilide at current dosing. ---- Consider ablative therapies (PVI + CTI line) as an outpatient. 2. LEIGH ANN on CPAP Recommend good treatment as poor control heightens risk for increased AF burden through autonomic-mediated activation of triggers. 3. Hypertension Recommend good treatment as poor control heightens risk for increased AF burden through autonomic-mediated activation of triggers. 4. Acute influenza A infection Noted. In droplet isolation. 5. Acute hypoxic respiratory failure Multifactorial. Currently on 4L supplemental O2 via nasal cannula. She does not wear chronic supplemental O2 at home. 6. Overweight Data suggests that exercise to improve cardiorespiratory fitness as well as weight loss of at least10% of body weight has been associated with improvement in atrial fibrillation management and a decrease in recurrences. ------- Plan: - Continue Tikosyn 250mcg every 12 hours with EKG 2 hours after each dose - Discontinue diltiazem - Hold metoprolol for HR <60bpm - Please notify EP should the patient start exhibiting ventricular arrhythmias including frequent PVCs/NSVT or if QTc measures greater than 500ms/20% or greater increase from previous reading - Goal K >4, Mag >2 - As needed potassium/magnesium supplementation ordered - BMP/Magnesium Level qAM - Will continue to follow Additional recommendations to follow if indicated per attending EP Dr. Lacy (see addendum once available). KARLENE Colmenares- Nurse Practitioner - Cardiac Electrophysiology [phone] Connect Messenger Digitally Signed by ELLEN RAMESH on 07/13/2023 01:28 PM [facility] [id number] NoteSINUS RHYTHM LOW VOLTAGE, EXTREMITY LEADS Electronic Signature: MANDO PALENCIA MD 07/14/2023 10:54:45[facility] 02-28-2024 Progress note Date of Service 07/13/2023 Subjective Patient is 73-year-old female with a past medical history of CVA, Afib on Eliquis, HTN, type 2 diabetes, chronic right hip fracture, HFpEF who was transferred from the [place] emergency room after suffering a fall at [facility]. Patient had altered mentation, febrile, with a UTI and pneumonia on arrival to [place] ED. Patient was positive for influenza A and was started on Rocephin, doxycycline, and Tamiflu. Supplemental oxygen required for hypoxia. Patient was admitted under cardiology service as she was found to be in atrial flutter with RVR. Cardioversion was attempted twice and unsuccessful after diltiazem and digoxin conversion had failed. Was started on a diltiazem drip. Neurology was consulted for confusion was metabolic encephalopathy due to underlying infection.Right hip x-ray completed and showed concern for a new fracture or poorly remodeled fracture of thelesser trochanteric and subtrochanteric zones with remodeling of the intertrochanteric zone of the right femur. CT right hip showed intertrochanteric/lesser trochanteric and subtrochanteric fracturesincompletely remodeled likely subacute to chronic; concern for superimposed acute fracture; extensive remodeling of the proximal femur with heterotopic ossification; nonspecific soft tissue edema. Humerus 2-view x-ray showed chronic appearing fracture of the distal humerus, degenerative changes of the shoulder and acromioclavicular joint, lucency surrounding the elbow prosthesis could be access service representative of loosening, infection, or particle disease. Orthopedics consulted for evaluation and recomme nded no interventions at this time. Hospitalist team consulted for medical management and antibiotic management. ESBL E. coli resulted for urine culture. Rocephin was discontinued and patient was started on ertapenem. ID was consulted who recommended discontinuation of antibiotics given asymptomatic bacteria. Tamiflu recommended for continuation for 5 days. Patient underwent successful cardioversion today and was converted to a normal sinus rhythm/sinus bradycardia. Diltiazem stopped per cardiology due to sinus bradycardia, and metoprolol dose may need to be reduced. Ablative therapies to be considered outpatient. Patient resting in bed, sleeping. Easily arousable, oriented, and answers questions appropriately. Patient denies chest pain, palpitations, shortness of breath, cough, lightheadedness, nausea, vomiting, fevers, or chills. Patient currently on 5L nasal cannula at 97% and weaned down on oxygen supplementation. Objective Vitals and Measurements T: 36.6 C (Oral) TMIN: 36.1 C (Temporal Artery) TMAX: 37 C (Oral) HR: 64(Monitored) RR: 20 BP: 120/70 SpO2: 91% Intake and Output 7AM Yesterday to 7AM Today Intake and Output (Last 24 hours) Intake Administration Information 50.00 Oral Intake 410.00 Output Urinary Catheter Output: 1025.00 Stool Count 0.00 Total Summary Total Intake 460.00 Total Output 1025.00 Fluid Balance -565.00 Physical Exam General Appearance: Resting comfortably in bed, sleeping. Wearing hospital gown. No acute distress. Head: No obvious lesions or rashes. Hair distribution equal. Hair tied up in pigtails. Normocephalic. EENT: PERRLA. Hearing intact. Nose intact. Nasal cannula present. Lips intact. Moist, pink mucous membranes. Cardiac: Regularly regular rhythm. S1S2 noted. +2 radial pulses and +1 pedal pulses. Capillary refill <3 seconds. No edema noted. Lungs: Chest expansion symmetrical. Clear, diminished breath sounds on 5L nasal cannula. Abdomen: Soft, rounded, nondistended. Nontender upon palpation. Present bowel sounds. No abdominal bruits. Musculoskeletal: Full range of motion of all extremities. 4/5 strength in all four extremities. Neurological: Alert and oriented x4. Follows commands. Sensation intact. No aphasia or dysarthria. Skin: Scattered bruising on bilateral upper extremities but no other lesions or rashes. Warm, dry, pink skin. Psychiatric: Sleeping, calm, cooperative. Weight Dosing Weight: 89 kg (07/10/23) Medications Medications (30) Active Scheduled: (14) amLODIPine 5 mg tablet 5 mg 1 tab(s), Oral, qDay apixaban 5 mg tablet 5 mg 1 tab(s), Oral, BID atorvastatin 40 mg tablet 40 mg 1 tab(s), Oral, qDay docusate-senna (Senokot S) 50 mg-8.6 mg Tablet 2 tab(s), Oral, qHS dofetilide 250 mcg capsule 250 mcg 1 cap(s), Oral, q12hr ferrous sulfate 325 mg Tablet 325 mg 1 tab(s), Oral, qDayM furosemide 20 mg tablet 20 mg 1 tab(s), Oral, Daily insulin lispro 100 units/mL Soln (3 mL) Give 0-5 units/dose, Subcutaneous, TIDAC metoprolol succinate 100 mg ER tablet 100 mg 1 tab(s), Oral, BID Misc communication order 1 EA, Miscellaneous, Daily mupirocin 2% Ointment 22 Gram(s) tube 1 alfonzo, Topical, TID oseltamivir 75 mg capsule 75 mg 1 cap(s), Oral, BID oxybutynin 5 mg ER tablet 15 mg 3 tab(s), Oral, BID sertraline 100 mg tablet 100 mg 1 tab(s), Oral, qDay Continuous: (0) PRN: (16) acetaminophen 325 mg Tablet 650 mg 2 tab(s), Oral, q4h acetaminophen 325 mg Tablet 650 mg 2 tab(s), Oral, q4h albuterol - ipratropium 2.5 mg-0.5 mg/3 mL Inhal Laquita UD 3 mL, Inhalation, q4hRT dextrose 50% Solution Disp syringe 50 mL 12.5 gram(s) 25 mL, IV Push, AsDirected magnesium sulfate 4 gram(s)/100mL PMX 4 g 100 mL, IV Piggyback, AsDirected magnesium sulfate 50% (500mg/mL) 6 g 12 mL, IV Piggyback, AsDirected magnesium sulfate PMX 2 g 50 mL, IV Piggyback, AsDirected magnesium sulfate PMX 2 g 50 mL, IV Piggyback, qDay melatonin 3 mg tablet 3 mg 1 tab(s), Oral, qHS polyethylene glycol 3350 - UD packet 17 gram(s) 15 mL, Oral, qDay potassium bicarbonate-citric acid 20 mEq EFF tablet 20 mEq 1 tab(s), Oral, qDay potassium bicarbonate-citric acid 20 mEq EFF tablet 40 mEq 2 tab(s), Oral, qDay potassium chloride (PMX) 20 mEq/100 mL 20 mEq 100 mL, IV Piggyback, AsDirected potassium chloride 20 mEq ER tablet 20 mEq 1 tab(s), Oral, AsDirected potassium chloride 20 mEq ER tablet 40 mEq 2 tab(s), Oral, AsDirected potassium chloride 20 mEq ER tablet 40 mEq 2 tab(s), Oral, AsDirected Lab Results 07/13 05:02 WBC: 4.1 L Hgb: 13.0 Hct: 38.8 Platelet: 141 L Neutrophil %: 73.5 Glucose Level: 93 Sodium Level: 134 L Potassium Level: 4.1 BUN: 39.0 H Creatinine Lvl (s): 1.16 07/12 03:59 WBC: 3.1 L Hgb: 12.8 Hct: 38.7 Platelet: 180 Neutrophil %: 62.1 Glucose Level: 61 L Sodium Level: 133 L Potassium Level: 3.8 BUN: 29.0 H Creatinine Lvl (s): 1.35 H Imaging Results and Diagnostics XR Humerus Minimum 2 Views Right Result Date: July 11, 2023 Verified By: RAF CALLOWAY, KAN Acosta CLINICAL STATEMENT: IMPRESSION: 1. Chronic appearing fracture of the distal humerus.2. Degenerative changes of the shoulder and acromioclavicular joint.3. Lucency surrounding the elbow prosthesis could be representativeofloosening, infection, or particle disease. XR Chest 1 View Result Date: July 10, 2023 Verified By: FATEMEH GEORGES MD CLINICAL STATEMENT: IMPRESSION: No significant interval change. To further characterize the right humeral findings, dedicated right humeralradiographs are recommended. I have personally reviewed the images of this examination and agree with theresident's findings and interpretation. EKG EKG - Completed -- 07/12/23 12:00:00 EST, Post 3rd Tikosyn dose EKG - Completed -- 07/13/23 1:00:00 EST Electrocardiogram (EKG) - Ordered -- 07/13/23 9:40:00 EST Electrocardiogram (EKG) - InProcess -- 07/13/23 9:42:00 EST, Upon arrival to nursing unit, Complete by Nursing Electrocardiogram (EKG) - InProcess -- 07/13/23 12:45:00 EST Assessment/Plan 1. Acute hypoxic respiratory failure Secondary to influenza A infection. Required 5L nasal cannula of supplemental oxygen upon arrival to ED as patient was 85% on room air. Patient currently on 5L nasal cannula of supplemental oxygen. Does not wear supplemental oxygen at home. Continue to wean oxygen as patient tolerates. Chest x-ray shows no significant interval change. Tamiflu to be continued for at least 5 days, per ID. 2. Encephalopathy acute Likely due to underlying infection. Neuro was consulted. CT head shows no acute abnormality on admission. Mentation return to baseline. Continue to monitor. 3. Influenza A Acute respiratory failure secondary to influenza A infection. In droplet isolation for infection. Continue Tamiflu for at least 5 days and longer if symptomatic, per ID. ID to sign off. 4. Pneumonia Secondary to influenza A infection. Continue Tamiflu course per ID and supplemental oxygen support as needed. Encourage cough and deep breathing. 5. Cystitis Patient started on Rocephin prophylactically upon admission. Urine culture positive for E. coli ESBL. Rocephin was discontinued and started on ertapenem. ID consulted for further review. ID to discontinue antibiotics given asymptomatic bacteremia. ID to sign off. 6. A-fib Patient found to be in atrial flutter with RVR. Given PO diltiazem and digoxin that were unsuccessful in conversion. Attempted cardioversion twice and was unsuccessful. Was started on a diltiazem drip that was eventually switched to PO Toprol-XL 100mg BID and PO diltiazem 60mg QID. Management per cardiology. Currently on diltiazem and metoprolol. EP consulted for ablation evaluation and further management. Tikosyn initiated and continued. Eliquis for stroke prophylaxis. Digoxinto be held due to CRISTIAN and CKD. Diuresis avoided due to CRISTIAN. Patient underwent successful cardioversion on 07/13/23 and was converted to normal sinus rhythm/sinus bradycardia. Diltiazem stopped secondary to sinus bradycardia. Per cardiology, patient may need metoprolol dose reduced as well. Ablative therapies to be considered outpatient. 7. Fall Status post fall-imaging concerning for intertrochanteric/lesser trochanteric and subtrochanteric fractures likely subacute to chronic. Chest x-ray shows no significant interval change. X-ray of the right humerus completed shows chronic appearing fracture in the distal humerus. Orthopedics evaluated patient given these findings, recommend no surgical intervention, follow-up outpatient. 8. Type 2 diabetes mellitus Blood sugars ranging from 78-213 mg/dL. Continue sliding scale insulin and glimepiride. Most [id number] 6.4. 9. Hyponatremia Sodium is 134. Continue to monitor 10. Weakness Continue to increase physical activity as patient tolerates. Discussed with Dr. Berry. Time Spent 20 minutes spent interviewing patient, reviewing plan of care, and documentation. Digitally Signed by Magali Norman Student MSN-PAINTER SKI EDGE on 07/13/2023 02:59 PM [facility] [id number] Note Date of Service 07-13-2023 Chief Complaint fatigue Subjective Patient is a 73-year-old female with past medical history significant for CVA, proximal A-fib on Eliquis, hypertension, type 2 diabetes, chronic right hip fracture, heart failure preserved EF [place] [facility]. She was admitted to cardiology service after found to be in atrial flutter with RVR and had 2 failed cardioversions. Was started on a diltiazem drip. Mentation was altered in the [place] ER was found to be febrile with UTI and pneumonia. Patient also found to be positive for influenza A. She was started on Rocephin, doxycycline and Tamiflu. Requiring supplemental oxygen for hypoxia. Neurology consulted for confusion was metabolic encephalopathy due to underlying infection. Imaging concerning for intertrochanteric/lesser trochanteric and subtrochanteric fractures likely subacute to chronic. Evaluated by orthopedics and recommended intervention at this time. Chest x-ray shows no significant interval change. X- ray of the right humerus completed culture positive for shows chronic appearing fracture in the distal humerus. ESBL, Rocephin was discontinued and patient was given a dose of ertapenem.ID was consulted who recommended discontinuation of antibiotics given asymptomatic bacteria. Proving, she was arousable on exam today. He had emergency room that was sessile as at home. Objective Vitals and Measurements T: 36.6 C (Oral) TMIN: 36.1 C (Temporal Artery) TMAX: 37.0 C (Oral) HR: 76(Monitored) RR: 20 BP: 120/70 SpO2: 91% Intake and Output 7AM Yesterday to 7AM Today Intake and Output (Last 24 hours) Intake Administration Information 50.00 Oral Intake 650.00 Output Urinary Catheter Output: 1250.00 Stool Count 0.00 Total Summary Total Intake 700.00 Total Output 1250.00 Fluid Balance -550.00 Physical Exam Constitutional: Patient is alert and oriented x3. In no acute distress. Eyes: PERRLA, EOM intact. ENT: hearing grossly intact, mucous membranes moist, Respiratory: Breathing nonlabored, lungs clear to auscultation bilaterally. Heart: Regular rate and rhythm. S1 S2 heard. GI: Bowel sounds x4 quadrants. No rebound tenderness or guarding. Neuro: speech clear. REGAN equally. memory intact Skin: no rashes or lesions noted. skin warm, dry and intact. Weight Dosing Weight: 89 kg (07/10/23) Medications Medications (31) Active Scheduled: (15) amLODIPine 5 mg tablet 5 mg 1 tab(s), Oral, qDay apixaban 5 mg tablet 5 mg 1 tab(s), Oral, BID atorvastatin 40 mg tablet 40 mg 1 tab(s), Oral, qDay diltiazem 60 mg tablet 60 mg 1 tab(s), Oral, QID docusate-senna (Senokot S) 50 mg-8.6 mg Tablet 2 tab(s), Oral, qHS dofetilide 250 mcg capsule 250 mcg 1 cap(s), Oral, q12hr ferrous sulfate 325 mg Tablet 325 mg 1 tab(s), Oral, qDayM furosemide 20 mg tablet 20 mg 1 tab(s), Oral, Daily insulin lispro 100 units/mL Soln (3 mL) Give 0-5 units/dose, Subcutaneous, TIDAC metoprolol succinate 100 mg ER tablet 100 mg 1 tab(s), Oral, BID Misc communication order 1 EA, Miscellaneous, Daily mupirocin 2% Ointment 22 Gram(s) tube 1 alfonzo, Topical, TID oseltamivir 75 mg capsule 75 mg 1 cap(s), Oral, BID oxybutynin 5 mg ER tablet 15 mg 3 tab(s), Oral, BID sertraline 100 mg tablet 100 mg 1 tab(s), Oral, qDay Continuous: (0) PRN: (16) acetaminophen 325 mg Tablet 650 mg 2 tab(s), Oral, q4h acetaminophen 325 mg Tablet 650 mg 2 tab(s), Oral, q4h albuterol - ipratropium 2.5 mg-0.5 mg/3 mL Inhal Laquita UD 3 mL, Inhalation, q4hRT dextrose 50% Solution Disp syringe 50 mL 12.5 gram(s) 25 mL, IV Push, AsDirected magnesium sulfate 4 gram(s)/100mL PMX 4 g 100 mL, IV Piggyback, AsDirected magnesium sulfate 50% (500mg/mL) 6 g 12 mL, IV Piggyback, AsDirected magnesium sulfate PMX 2 g 50 mL, IV Piggyback, AsDirected magnesium sulfate PMX 2 g 50 mL, IV Piggyback, qDay melatonin 3 mg tablet 3 mg 1 tab(s), Oral, qHS polyethylene glycol 3350 - UD packet 17 gram(s) 15 mL, Oral, qDay potassium bicarbonate-citric acid 20 mEq EFF tablet 20 mEq 1 tab(s), Oral, qDay potassium bicarbonate-citric acid 20 mEq EFF tablet 40 mEq 2 tab(s), Oral, qDay potassium chloride (PMX) 20 mEq/100 mL 20 mEq 100 mL, IV Piggyback, AsDirected potassium chloride 20 mEq ER tablet 20 mEq 1 tab(s), Oral, AsDirected potassium chloride 20 mEq ER tablet 40 mEq 2 tab(s), Oral, AsDirected potassium chloride 20 mEq ER tablet 40 mEq 2 tab(s), Oral, AsDirected Lab Results 07/13 05:02 WBC: 4.1 L Hgb: 13.0 Hct: 38.8 Platelet: 141 L Neutrophil %: 73.5 Glucose Level: 93 Sodium Level: 134 L Potassium Level: 4.1 BUN: 39.0 H Creatinine Lvl (s): 1.16 07/12 03:59 WBC: 3.1 L Hgb: 12.8 Hct: 38.7 Platelet: 180 Neutrophil %: 62.1 Glucose Level: 61 L Sodium Level: 133 L Potassium Level: 3.8 BUN: 29.0 H Creatinine Lvl (s): 1.35 H Imaging Results and Diagnostics XR Humerus Minimum 2 Views Right Result Date: July 11, 2023 Verified By: RAF CALLOWAY, KAN Acosta CLINICAL STATEMENT: IMPRESSION: 1. Chronic appearing fracture of the distal humerus.2. Degenerative changes of the shoulder and acromioclavicular joint.3. Lucency surrounding the elbow prosthesis could be representativeofloosening, infection, or particle disease. XR Chest 1 View Result Date: July 10, 2023 Verified By: FATEMEH GEORGES MD CLINICAL STATEMENT: IMPRESSION: No significant interval change. To further characterize the right humeral findings, dedicated right humeralradiographs are recommended. I have personally reviewed the images of this examination and agree with theresident's findings and interpretation. EKG EKG - Completed -- 07/12/23 12:00:00 EST, Post 3rd Tikosyn dose EKG - Completed -- 07/13/23 1:00:00 EST Electrocardiogram (EKG) - Ordered -- 07/13/23 9:40:00 EST Electrocardiogram (EKG) - InProcess -- 07/13/23 9:42:00 EST, Upon arrival to nursing unit, Complete by Nursing Electrocardiogram (EKG) - InProcess -- 07/13/23 12:45:00 EST Assessment/Plan 1. Acute hypoxic respiratory failure 2. Influenza A 3. A-fib 4. Cystitis 5. Encephalopathy acute 6. Type 2 diabetes mellitus 7. Hyponatremia 8. Fall Acute hypoxic respiratory failure secondary to influenza A. Continue fluid for 5 days. Continuationescalated oxygen was turned down from 5 to 3 L during my exam today. Discussed with nursing to continue to wean. Asymptomatic bacteriuria ID was consulted and recommended discontinuation of IV antibiotics. Encephalopathy due to underlying infection, neuro was consulted. CT head shows no acute abnormalityon admission. Resolved Diabetes mellitus type 2 Continue corrective scale insulin, glimepiride. A1c 6.4 Hyponatremia sodium is 134 continue to monitor Management of atrial fibrillation per cardiology, EP following. Cardioversion successful today. Status post fall-imaging concerning for intertrochanteric/lesser trochanteric and subtrochanteric fractures likely subacute to chronic. Chest x-ray shows no significant interval change. X-ray of the right humerus completed shows chronic appearing fracture in the distal humerus. Was evaluated by orthopedic in the interim, intervention not recommended at this time. Mention is not recommended at this time. Hospitalist will follow peripherally, please call with any further questions or concerns. Discussed with Dr. Berry. Digitally Signed by BRITT HOPKINS on 07/13/2023 01:13 PM [facility] [id number] NoteSINUS RHYTHM LOW VOLTAGE, EXTREMITY LEADS Electronic Signature: MANDO PALENCIA MD 07/14/2023 10:53:51[facility] 02-28-2024 Cardiology Progress note Subjective No acute overnight events, patient underwent successful cardioversion without any periprocedural complications. Tolerated procedure well. Objective Vitals and Measurements T: 36.6 C (Oral) TMIN: 36.1 C (Temporal Artery) TMAX: 37.0 C (Oral) HR: 76(Monitored) RR: 20 BP: 120/70 SpO2: 91% Intake and Output 7AM Yesterday to 7AM Today Intake and Output (Last 24 hours) Intake Administration Information 50.00 Oral Intake 650.00 Output Urinary Catheter Output: 1250.00 Stool Count 0.00 Total Summary Total Intake 700.00 Total Output 1250.00 Fluid Balance -550.00 Physical Exam General Appearance: NAD Head: NCAT EENT: no gross abnormalities Neck: no JVD appreciated Cardiac: NS1S2 Lungs: CTAB Abdomen: soft, NT/ND Musculoskeletal: ROM wnl Extremities: no pitting edema Neurological: no focal deficits Skin: warm, dry Psychiatric: normal mentation Weight Dosing Weight: 89 kg (07/10/23) Medications Medications (30) Active Scheduled: (14) amLODIPine 5 mg tablet 5 mg 1 tab(s), Oral, qDay apixaban 5 mg tablet 5 mg 1 tab(s), Oral, BID atorvastatin 40 mg tablet 40 mg 1 tab(s), Oral, qDay diltiazem 60 mg tablet 60 mg 1 tab(s), Oral, QID docusate-senna (Senokot S) 50 mg-8.6 mg Tablet 2 tab(s), Oral, qHS dofetilide 250 mcg capsule 250 mcg 1 cap(s), Oral, q12hr ferrous sulfate 325 mg Tablet 325 mg 1 tab(s), Oral, qDayM insulin lispro 100 units/mL Soln (3 mL) Give 0-5 units/dose, Subcutaneous, TIDAC metoprolol succinate 100 mg ER tablet 100 mg 1 tab(s), Oral, BID Misc communication order 1 EA, Miscellaneous, Daily mupirocin 2% Ointment 22 Gram(s) tube 1 alfonzo, Topical, TID oseltamivir 75 mg capsule 75 mg 1 cap(s), Oral, BID oxybutynin 5 mg ER tablet 15 mg 3 tab(s), Oral, BID sertraline 100 mg tablet 100 mg 1 tab(s), Oral, qDay Continuous: (0) PRN: (16) acetaminophen 325 mg Tablet 650 mg 2 tab(s), Oral, q4h acetaminophen 325 mg Tablet 650 mg 2 tab(s), Oral, q4h albuterol - ipratropium 2.5 mg-0.5 mg/3 mL Inhal Laquita UD 3 mL, Inhalation, q4hRT dextrose 50% Solution Disp syringe 50 mL 12.5 gram(s) 25 mL, IV Push, AsDirected magnesium sulfate 4 gram(s)/100mL PMX 4 g 100 mL, IV Piggyback, AsDirected magnesium sulfate 50% (500mg/mL) 6 g 12 mL, IV Piggyback, AsDirected magnesium sulfate PMX 2 g 50 mL, IV Piggyback, AsDirected magnesium sulfate PMX 2 g 50 mL, IV Piggyback, qDay melatonin 3 mg tablet 3 mg 1 tab(s), Oral, qHS polyethylene glycol 3350 - UD packet 17 gram(s) 15 mL, Oral, qDay potassium bicarbonate-citric acid 20 mEq EFF tablet 20 mEq 1 tab(s), Oral, qDay potassium bicarbonate-citric acid 20 mEq EFF tablet 40 mEq 2 tab(s), Oral, qDay potassium chloride (PMX) 20 mEq/100 mL 20 mEq 100 mL, IV Piggyback, AsDirected potassium chloride 20 mEq ER tablet 20 mEq 1 tab(s), Oral, AsDirected potassium chloride 20 mEq ER tablet 40 mEq 2 tab(s), Oral, AsDirected potassium chloride 20 mEq ER tablet 40 mEq 2 tab(s), Oral, AsDirected Lab Results 07/13 05:02 WBC: 4.1 L Hgb: 13.0 Hct: 38.8 Platelet: 141 L Neutrophil %: 73.5 Glucose Level: 93 Sodium Level: 134 L Potassium Level: 4.1 BUN: 39.0 H Creatinine Lvl (s): 1.16 07/12 03:59 WBC: 3.1 L Hgb: 12.8 Hct: 38.7 Platelet: 180 Neutrophil %: 62.1 Glucose Level: 61 L Sodium Level: 133 L Potassium Level: 3.8 BUN: 29.0 H Creatinine Lvl (s): 1.35 H EKG EKG - Completed -- 07/12/23 12:00:00 EST, Post 3rd Tikosyn dose EKG - Completed -- 07/13/23 1:00:00 EST Electrocardiogram (EKG) - Ordered -- 07/13/23 9:40:00 EST Electrocardiogram (EKG) - InProcess -- 07/13/23 9:42:00 EST, Upon arrival to nursing unit, Complete by Nursing Electrocardiogram (EKG) - Ordered -- 07/13/23 12:45:00 EST Assessment/Plan Reverse typical atrial flutter with 4:1 AV conduction ACC stage IIIa paroxysmal atrial fibrillation Acute on chronic HFpEF 60 to 65% Right ventricular failure Acute hypoxic respiratory failure 2/2 to PNA/Flu and CHF Acute metabolic toxic encephalopathy-resolving History of paroxysmal atrial fibrillation on Eliquis Mechanical fall UTI PNA/Influenza + CRISTIAN on likely CKD-resolved Hyponatremia Hypertension Hyperlipidemia Type 2 diabetes History of right hip fracture with repair Impression/plan: -Patient failed cardioversion x 2 in [place] ED after diltiazem and 0.5 digoxin did not control rate. Was started on diltiazem drip at 20 mg/h, started on Toprol-XL 100 twice daily and weaned off IVdiltiazem drip to PO 60mg QID with plan to switch back to long acting formulation. Will consult EP for ablation evaluation and further management. Will hold off on any further digoxin given CRISTIAN and CKD. Continue Eliquis for stroke prophylaxis. Will hold diuresis today given CRISTIAN-now improving, we will plan on transitioning to oral Lasix tomorrow. -For UTI/pneumonia/Flu + continue her on ceftriaxone doxycycline and consulted hospitalist for management. -AMS could be 2/2 to underlying infection, CTH negative at [facility] ED. neurology evaluated patient,reaffirmed AMS secondary to metabolic derangements and acute infectious process. Currently in atrial fibrillation, rate controlled on Toprol. EP started on Tikosyn, has received fifth loading dose, QTc within normal limits. Now status post DCCV, successful. Maintaining normal sinus rhythm. Disposition: Discharged to assisted living facility with oxygen. Digitally Signed by JASMYNE SWENSON MD on 07/13/2023 11:55 AM [facility] [id number] Cardiology Progress note Subjective No acute overnight events, patient underwent successful cardioversion without any periprocedural complications. Tolerated procedure well. Objective Vitals and Measurements T: 36.6 C (Oral) TMIN: 36.1 C (Temporal Artery) TMAX: 37.0 C (Oral) HR: 76(Monitored) RR: 20 BP: 120/70 SpO2: 91% Intake and Output 7AM Yesterday to 7AM Today Intake and Output (Last 24 hours) Intake Administration Information 50.00 Oral Intake 650.00 Output Urinary Catheter Output: 1250.00 Stool Count 0.00 Total Summary Total Intake 700.00 Total Output 1250.00 Fluid Balance -550.00 Physical Exam General Appearance: NAD Head: NCAT EENT: no gross abnormalities Neck: no JVD appreciated Cardiac: NS1S2 Lungs: CTAB Abdomen: soft, NT/ND Musculoskeletal: ROM wnl Extremities: no pitting edema Neurological: no focal deficits Skin: warm, dry Psychiatric: normal mentation Weight Dosing Weight: 89 kg (07/10/23) Medications Medications (30) Active Scheduled: (14) amLODIPine 5 mg tablet 5 mg 1 tab(s), Oral, qDay apixaban 5 mg tablet 5 mg 1 tab(s), Oral, BID atorvastatin 40 mg tablet 40 mg 1 tab(s), Oral, qDay diltiazem 60 mg tablet 60 mg 1 tab(s), Oral, QID docusate-senna (Senokot S) 50 mg-8.6 mg Tablet 2 tab(s), Oral, qHS dofetilide 250 mcg capsule 250 mcg 1 cap(s), Oral, q12hr ferrous sulfate 325 mg Tablet 325 mg 1 tab(s), Oral, qDayM insulin lispro 100 units/mL Soln (3 mL) Give 0-5 units/dose, Subcutaneous, TIDAC metoprolol succinate 100 mg ER tablet 100 mg 1 tab(s), Oral, BID Misc communication order 1 EA, Miscellaneous, Daily mupirocin 2% Ointment 22 Gram(s) tube 1 alfonzo, Topical, TID oseltamivir 75 mg capsule 75 mg 1 cap(s), Oral, BID oxybutynin 5 mg ER tablet 15 mg 3 tab(s), Oral, BID sertraline 100 mg tablet 100 mg 1 tab(s), Oral, qDay Continuous: (0) PRN: (16) acetaminophen 325 mg Tablet 650 mg 2 tab(s), Oral, q4h acetaminophen 325 mg Tablet 650 mg 2 tab(s), Oral, q4h albuterol - ipratropium 2.5 mg-0.5 mg/3 mL Inhal Laquita UD 3 mL, Inhalation, q4hRT dextrose 50% Solution Disp syringe 50 mL 12.5 gram(s) 25 mL, IV Push, AsDirected magnesium sulfate 4 gram(s)/100mL PMX 4 g 100 mL, IV Piggyback, AsDirected magnesium sulfate 50% (500mg/mL) 6 g 12 mL, IV Piggyback, AsDirected magnesium sulfate PMX 2 g 50 mL, IV Piggyback, AsDirected magnesium sulfate PMX 2 g 50 mL, IV Piggyback, qDay melatonin 3 mg tablet 3 mg 1 tab(s), Oral, qHS polyethylene glycol 3350 - UD packet 17 gram(s) 15 mL, Oral, qDay potassium bicarbonate-citric acid 20 mEq EFF tablet 20 mEq 1 tab(s), Oral, qDay potassium bicarbonate-citric acid 20 mEq EFF tablet 40 mEq 2 tab(s), Oral, qDay potassium chloride (PMX) 20 mEq/100 mL 20 mEq 100 mL, IV Piggyback, AsDirected potassium chloride 20 mEq ER tablet 20 mEq 1 tab(s), Oral, AsDirected potassium chloride 20 mEq ER tablet 40 mEq 2 tab(s), Oral, AsDirected potassium chloride 20 mEq ER tablet 40 mEq 2 tab(s), Oral, AsDirected Lab Results 07/13 05:02 WBC: 4.1 L Hgb: 13.0 Hct: 38.8 Platelet: 141 L Neutrophil %: 73.5 Glucose Level: 93 Sodium Level: 134 L Potassium Level: 4.1 BUN: 39.0 H Creatinine Lvl (s): 1.16 07/12 03:59 WBC: 3.1 L Hgb: 12.8 Hct: 38.7 Platelet: 180 Neutrophil %: 62.1 Glucose Level: 61 L Sodium Level: 133 L Potassium Level: 3.8 BUN: 29.0 H Creatinine Lvl (s): 1.35 H EKG EKG - Completed -- 07/12/23 12:00:00 EST, Post 3rd Tikosyn dose EKG - Completed -- 07/13/23 1:00:00 EST Electrocardiogram (EKG) - Ordered -- 07/13/23 9:40:00 EST Electrocardiogram (EKG) - InProcess -- 07/13/23 9:42:00 EST, Upon arrival to nursing unit, Complete by Nursing Electrocardiogram (EKG) - Ordered -- 07/13/23 12:45:00 EST Assessment/Plan Reverse typical atrial flutter with 4:1 AV conduction ACC stage IIIa paroxysmal atrial fibrillation Acute on chronic HFpEF 60 to 65% Right ventricular failure Acute hypoxic respiratory failure 2/2 to PNA/Flu and CHF Acute metabolic toxic encephalopathy-resolving History of paroxysmal atrial fibrillation on Eliquis Mechanical fall UTI PNA/Influenza + CRISTIAN on likely CKD-resolved Hyponatremia Hypertension Hyperlipidemia Type 2 diabetes History of right hip fracture with repair Impression/plan: -Patient failed cardioversion x 2 in [place] ED after diltiazem and 0.5 digoxin did not control rate. Was started on diltiazem drip at 20 mg/h, started on Toprol-XL 100 twice daily and weaned off IVdiltiazem drip to PO 60mg QID with plan to switch back to long acting formulation. Will consult EP for ablation evaluation and further management. Will hold off on any further digoxin given CRISTIAN and CKD. Continue Eliquis for stroke prophylaxis. Will hold diuresis today given CRISTIAN-now improving, we will plan on transitioning to oral Lasix tomorrow. -For UTI/pneumonia/Flu + continue her on ceftriaxone doxycycline and consulted hospitalist for management. -AMS could be 2/2 to underlying infection, CTH negative at [facility] ED. neurology evaluated patient,reaffirmed AMS secondary to metabolic derangements and acute infectious process. Currently in atrial fibrillation, rate controlled on Toprol. EP started on Tikosyn, has received fifth loading dose, QTc within normal limits. Now status post DCCV, successful. Maintaining normal sinus rhythm. Disposition: Discharged to assisted living facility with oxygen. Digitally Signed by JASMYNE SWENSON MD on 07/13/2023 11:55 AM [facility] [id number] NoteSINUS RHYTHM ATRIAL PREMATURE COMPLEXES LOW VOLTAGE, EXTREMITY LEADS Electronic Signature: MANDO PALENCIA MD 07/14/2023 10:47:15[facility] 02-28-2024 Cardiology Progress note Date of Service July 13, 2023 Split/shared visit with Dr. Lacy (Primary EP: Dr. Lacy) Chief Complaint Underwent DCCV this AM, remains in sinus rhythm at this time Dofetilide loading in progress Remains on 4L supplemental O2 via nasal cannula Droplet isolation precautions in place d/t active influenza A infection Subjective Patient resting comfortably in bed. She states she is feeling much better since undergoing DCCV. Objective Vitals and Measurements T: 36.1 C (Temporal Artery) TMIN: 36.1 C (Temporal Artery) TMAX: 37.0 C (Oral) HR: 52(Monitored) RR: 18 BP: 105/56 SpO2: 96% Intake and Output 7AM Yesterday to 7AM Today Intake and Output (Last 24 hours) Intake Administration Information 50.00 Oral Intake 650.00 Output Urinary Catheter Output: 1250.00 Stool Count 0.00 Total Summary Total Intake 700.00 Total Output 1250.00 Fluid Balance -550.00 Physical Exam GENERAL: No acute distress. PSYCHIATRIC: Alert and oriented, cooperative. Affect normal. HEAD: Normocephalic/atraumatic. ENT: Mucus membranes pink/moist. NECK: Supple. No gross thyromegaly noted. CARDIAC: Regular S1S2 present. RESPIRATORY: Regular rate and depth; no distress. No conversational dyspnea noted. On 4L via nasal cannula. ABDOMEN: Soft, nontender. Positive bowel sounds. EXTREMITIES: Adequately perfused. NEURO: Cranial Nerves II-XII grossly intact. MUSCULOSKELETAL: Strength/tone equal bilaterally. DERM: Warm/dry. Weight Dosing Weight: 89 kg (07/10/23) Medications Medications (30) Active Scheduled: (14) amLODIPine 5 mg tablet 5 mg 1 tab(s), Oral, qDay apixaban 5 mg tablet 5 mg 1 tab(s), Oral, BID atorvastatin 40 mg tablet 40 mg 1 tab(s), Oral, qDay diltiazem 60 mg tablet 60 mg 1 tab(s), Oral, QID docusate-senna (Senokot S) 50 mg-8.6 mg Tablet 2 tab(s), Oral, qHS dofetilide 250 mcg capsule 250 mcg 1 cap(s), Oral, q12hr ferrous sulfate 325 mg Tablet 325 mg 1 tab(s), Oral, qDayM insulin lispro 100 units/mL Soln (3 mL) Give 0-5 units/dose, Subcutaneous, TIDAC metoprolol succinate 100 mg ER tablet 100 mg 1 tab(s), Oral, BID Misc communication order 1 EA, Miscellaneous, Daily mupirocin 2% Ointment 22 Gram(s) tube 1 alfonzo, Topical, TID oseltamivir 75 mg capsule 75 mg 1 cap(s), Oral, BID oxybutynin 5 mg ER tablet 15 mg 3 tab(s), Oral, BID sertraline 100 mg tablet 100 mg 1 tab(s), Oral, qDay Continuous: (0) PRN: (16) acetaminophen 325 mg Tablet 650 mg 2 tab(s), Oral, q4h acetaminophen 325 mg Tablet 650 mg 2 tab(s), Oral, q4h albuterol - ipratropium 2.5 mg-0.5 mg/3 mL Inhal Laquita UD 3 mL, Inhalation, q4hRT dextrose 50% Solution Disp syringe 50 mL 12.5 gram(s) 25 mL, IV Push, AsDirected magnesium sulfate 4 gram(s)/100mL PMX 4 g 100 mL, IV Piggyback, AsDirected magnesium sulfate 50% (500mg/mL) 6 g 12 mL, IV Piggyback, AsDirected magnesium sulfate PMX 2 g 50 mL, IV Piggyback, AsDirected magnesium sulfate PMX 2 g 50 mL, IV Piggyback, qDay melatonin 3 mg tablet 3 mg 1 tab(s), Oral, qHS polyethylene glycol 3350 - UD packet 17 gram(s) 15 mL, Oral, qDay potassium bicarbonate-citric acid 20 mEq EFF tablet 20 mEq 1 tab(s), Oral, qDay potassium bicarbonate-citric acid 20 mEq EFF tablet 40 mEq 2 tab(s), Oral, qDay potassium chloride (PMX) 20 mEq/100 mL 20 mEq 100 mL, IV Piggyback, AsDirected potassium chloride 20 mEq ER tablet 20 mEq 1 tab(s), Oral, AsDirected potassium chloride 20 mEq ER tablet 40 mEq 2 tab(s), Oral, AsDirected potassium chloride 20 mEq ER tablet 40 mEq 2 tab(s), Oral, AsDirected Lab Results 07/13 05:02 WBC: 4.1 L Hgb: 13.0 Hct: 38.8 Platelet: 141 L Neutrophil %: 73.5 Glucose Level: 93 Sodium Level: 134 L Potassium Level: 4.1 BUN: 39.0 H Creatinine Lvl (s): 1.16 07/12 03:59 WBC: 3.1 L Hgb: 12.8 Hct: 38.7 Platelet: 180 Neutrophil %: 62.1 Glucose Level: 61 L Sodium Level: 133 L Potassium Level: 3.8 BUN: 29.0 H Creatinine Lvl (s): 1.35 H Imaging Results and Diagnostics XR Humerus Minimum 2 Views Right Result Date: July 11, 2023 Verified By: KAN BRADLEY MD CLINICAL STATEMENT: IMPRESSION: 1. Chronic appearing fracture of the distal humerus.2. Degenerative changes of the shoulder and acromioclavicular joint.3. Lucency surrounding the elbow prosthesis could be representativeof loosening, infection, or particle disease. XR Chest 1 View Result Date: July 10, 2023 Verified By: FATEMEH GEORGES MD CLINICAL STATEMENT: IMPRESSION: No significant interval change. To further characterize the right humeral findings, dedicated right humeral radiographs are recommended. I have personally reviewed the images of this examination and agree with the resident's findings and interpretation. EKG EKG - Completed -- 07/10/23 21:37:00 EST EKG - Completed -- 07/11/23 13:30:00 EST, Post Tikosyn EKG [AOH] - Completed -- 07/12/23 0:00:00 EST Electrocardiogram (EKG) - InProcess -- 07/12/23 12:00:00 EST, Post 3rd Tikosyn dose Electrocardiogram (EKG) - InProcess -- 07/13/23 1:00:00 EST Electrocardiogram (EKG) - Ordered -- 07/13/23 9:40:00 EST Electrocardiogram (EKG) - Ordered -- 07/13/23 9:42:00 EST, Upon arrival to nursing unit, Complete by Nursing Assessment/Plan 1. Recurrent atrial fibrillation/flutter, s/p DCCV (07/13/23) ---> Stage 3 per 2022 ACC guidelines --- Antiarrhythmic- dofetilide 250mcg q12hr (dose #5 pending this AM) Rate Control- diltiazem IR 60mg QID --> discontinued (see below for details), metoprolol succinate 100mg BID --> Hold parameters in place for HR <60bpm OAC- Eliquis 5mg BID ---- Telemetry reviewed- demonstrates sinus rhythm/sinus bradycardia with heart rates in the 50-60bpm range. --> Underwent successful DCCV this AM. --> Will stop diltiazem secondary to sinus bradycardia. May eventually need to reduce metoprololsuccinate dosing as well. ---- Creatinine clearance 71mL/min. Most recent labs reviewed- potassium 4.1 / magnesium 2.0 --> Goal K >4, Mag >2 --> Daily BMP/magnesium level --> PRN electrolyte repletion protocol ---- EKG s/p DCCV demonstrates stable QT interval, thus we will continue dofetilide at current dosing. ---- Consider ablative therapies (PVI + CTI line) as an outpatient. 2. LEIGH ANN on CPAP Recommend good treatment as poor control heightens risk for increased AF burden through autonomic-mediated activation of triggers. 3. Hypertension Recommend good treatment as poor control heightens risk for increased AF burden through autonomic-mediated activation of triggers. 4. Acute influenza A infection Noted. In droplet isolation. 5. Acute hypoxic respiratory failure Multifactorial. Currently on 4L supplemental O2 via nasal cannula. She does not wear chronic supplemental O2 at home. 6. Overweight Data suggests that exercise to improve cardiorespiratory fitness as well as weight loss of at least10% of body weight has been associated with improvement in atrial fibrillation management and a decrease in recurrences. ------- Plan: - Continue Tikosyn 250mcg every 12 hours with EKG 2 hours after each dose - Discontinue diltiazem - Hold metoprolol for HR <60bpm - Please notify EP should the patient start exhibiting ventricular arrhythmias including frequent PVCs/NSVT or if QTc measures greater than 500ms/20% or greater increase from previous reading - Goal K >4, Mag >2 - As needed potassium/magnesium supplementation ordered - BMP/Magnesium Level qAM - Will continue to follow Additional recommendations to follow if indicated per attending EP Dr. Lacy (see addendum once available). KARLENE Colmenares- Nurse Practitioner - Cardiac Electrophysiology [phone] Connect Messenger Digitally Signed by [facility] on 07/13/2023 01:28 PM [id number] Procedure note Date of Service July 13, 2023 Primary EP: Dr. Lacy Procedure Name Direct-current cardioversion Referring Provider Dr. Lacy Consent Patient has been educated about the risks, benefits, and alternatives of this procedure prior to obtaining consent. Indication Atrial flutter Location CVOR Procedural Sedation See anesthesia documentation Technique This is a 73-year-old female who presents today for direct current cardioversion secondary to atrial flutter. Patient verbalized confirmation that she has been on uninterrupted systemic anticoagulation with Eliquis for a minimum of 3 weeks prior to procedure. Current drug regimen includes antiarrhythmic therapy with dofetilide 250mcg every 12 hours + rate control therapy with metoprolol [id number] twice daily/diltiazem immediate release 60mg four times daily. Anticoagulated with Eliquis 5mg twice daily. Patient presented in a fasting, well-hydrated state. Presenting rhythm was atrial flutter with a ventricular response rate of 101 bpm. Once a SITE ACQUISITION MANAGER administered an IV anesthetic agent and the patient was fully sedated, an anterior-posterior patch placement was utilized to deliver a synchronized biphasic waveform at 20 J with anteriordirect pressure which resulted in the buddhist of normal sinus rhythm at a heart rate of 61 bpm. The patient tolerated the procedure well and returned to CCU bed 341 in stable condition. Digitally Signed by ELLEN RAMESH on 07/13/2023 09:41 AM [facility] [id number] NoteATRIAL FLUTTER/FIBRILLATION NONSPECIFIC T ABNORMALITIES, INFERIOR LEADS Electronic Signature: AMNDO PALENCIA MD 07/13/2023 11:01:46[facility] 02-27-2024 Progress note Date of Service 07/12/2023 Chief Complaint Fall Subjective Patient is 73-year-old female with a past medical history of CVA, Afib on Eliquis, HTN, type 2 diabetes, chronic right hip fracture, HFpEF who was transferred from the [place] emergency room after suffering a fall at [facility]. Patient had altered mentation, febrile, with a UTI and pneumonia on arrival to [place] ED. Patient was positive for influenza A and was started on Rocephin, doxycycline, and Tamiflu. Supplemental oxygen required for hypoxia. Patient was admitted under cardiology service as she was found to be in atrial flutter with RVR. Cardioversion was attempted twice and unsuccessful after diltiazem and digoxin conversion had failed. Was started on a diltiazem drip. Neurology was consulted for confusion was metabolic encephalopathy due to underlying infection.Right hip x-ray completed and showed concern for a new fracture or poorly remodeled fracture of thelesser trochanteric and subtrochanteric zones with remodeling of the intertrochanteric zone of the right femur. CT right hip showed intertrochanteric/lesser trochanteric and subtrochanteric fracturesincompletely remodeled likely subacute to chronic; concern for superimposed acute fracture; extensive remodeling of the proximal femur with heterotopic ossification; nonspecific soft tissue edema. Humerus 2-view x-ray showed chronic appearing fracture of the distal humerus, degenerative changes of the shoulder and acromioclavicular joint, lucency surrounding the elbow prosthesis could be access service representative of loosening, infection, or particle disease. Orthopedics consulted for evaluation and recomme nded no interventions at this time. Hospitalist team consulted for medical management and antibiotic management. ESBL E. coli resulted for urine culture. Rocephin was discontinued and patient was started on ertapenem. ID was consulted who recommended discontinuation of antibiotics given asymptomatic bacteria. Patient resting in bed, watching TV. Alert, oriented, and conversational. Per past notes, patient appears more alert and oriented today than prior. Patient reports some back pain but denies chest pain, palpitations, shortness of breath, cough, lightheadedness, nausea, vomiting, fevers, or chills. Objective Vitals and Measurements T: 37.0 C (Oral) TMIN: 36.8 C (Oral) TMAX: 37.0 C (Oral) HR: 75(Monitored) RR: 20 BP: 118/70 SpO2:94% Intake and Output 7AM Yesterday to 7AM Today Intake and Output (Last 24 hours) Intake Oral Intake 660.00 Output Urinary Catheter Output: 950.00 Stool Count 1.00 Total Summary Total Intake 660.00 Total Output 950.00 Fluid Balance -290.00 Physical Exam General Appearance: Resting comfortably in bed watching TV with wedges placed under right side. No acute distress. Head: No obvious lesions or rashes. Hair distribution equal. Hair tied up in pigtails. Normocephalic. EENT: PERRLA. Hearing intact. Nose intact. Lips intact. Moist, pink mucous membranes. Cardiac: Irregularly irregular rhythm. S1S2 noted. +2 radial pulses and +1 pedal pulses. Capillary refill <3 seconds. No edema noted. Lungs: Chest expansion symmetrical. Clear, diminished breath sounds on 4L nasal cannula. Abdomen: Soft, rounded, nondistended. Nontender upon palpation. Present bowel sounds. No abdominal bruits. Musculoskeletal: Full range of motion of all extremities. 4/5 strength in all four extremities. Neurological: Alert and oriented x4. Follows commands. Sensation intact. No aphasia or dysarthria. Skin: Scattered bruising but no other lesions or rashes. Warm, dry, pink skin. Psychiatric: Calm, cooperative, conversational. Weight Dosing Weight: 89 kg (07/10/23) Medications Medications (30) Active Scheduled: (14) amLODIPine 5 mg tablet 5 mg 1 tab(s), Oral, qDay apixaban 5 mg tablet 5 mg 1 tab(s), Oral, BID atorvastatin 40 mg tablet 40 mg 1 tab(s), Oral, qDay diltiazem 60 mg tablet 60 mg 1 tab(s), Oral, QID docusate-senna (Senokot S) 50 mg-8.6 mg Tablet 2 tab(s), Oral, qHS dofetilide 250 mcg capsule 250 mcg 1 cap(s), Oral, q12hr ferrous sulfate 325 mg Tablet 325 mg 1 tab(s), Oral, qDayM insulin lispro 100 units/mL Soln (3 mL) Give 0-5 units/dose, Subcutaneous, TIDAC metoprolol succinate 100 mg ER tablet 100 mg 1 tab(s), Oral, BID Misc communication order 1 EA, Miscellaneous, Daily mupirocin 2% Ointment 22 Gram(s) tube 1 alfonzo, Topical, TID oseltamivir 75 mg capsule 75 mg 1 cap(s), Oral, BID oxybutynin 5 mg ER tablet 15 mg 3 tab(s), Oral, BID sertraline 100 mg tablet 100 mg 1 tab(s), Oral, qDay Continuous: (0) PRN: (16) acetaminophen 325 mg Tablet 650 mg 2 tab(s), Oral, q4h acetaminophen 325 mg Tablet 650 mg 2 tab(s), Oral, q4h albuterol - ipratropium 2.5 mg-0.5 mg/3 mL Inhal Laquita UD 3 mL, Inhalation, q4hRT dextrose 50% Solution Disp syringe 50 mL 12.5 gram(s) 25 mL, IV Push, AsDirected magnesium sulfate 4 gram(s)/100mL PMX 4 g 100 mL, IV Piggyback, AsDirected magnesium sulfate 50% (500mg/mL) 6 g 12 mL, IV Piggyback, AsDirected magnesium sulfate PMX 2 g 50 mL, IV Piggyback, AsDirected magnesium sulfate PMX 2 g 50 mL, IV Piggyback, qDay melatonin 3 mg tablet 3 mg 1 tab(s), Oral, qHS polyethylene glycol 3350 - UD packet 17 gram(s) 15 mL, Oral, qDay potassium bicarbonate-citric acid 20 mEq EFF tablet 20 mEq 1 tab(s), Oral, qDay potassium bicarbonate-citric acid 20 mEq EFF tablet 40 mEq 2 tab(s), Oral, qDay potassium chloride (PMX) 20 mEq/100 mL 20 mEq 100 mL, IV Piggyback, AsDirected potassium chloride 20 mEq ER tablet 20 mEq 1 tab(s), Oral, AsDirected potassium chloride 20 mEq ER tablet 40 mEq 2 tab(s), Oral, AsDirected potassium chloride 20 mEq ER tablet 40 mEq 2 tab(s), Oral, AsDirected Lab Results 07/12 03:59 WBC: 3.1 L Hgb: 12.8 Hct: 38.7 Platelet: 180 Neutrophil %: 62.1 Glucose Level: 61 L Sodium Level: 133 L Potassium Level: 3.8 BUN: 29.0 H Creatinine Lvl (s): 1.35 H 07/11 05:14 WBC: 5.6 Hgb: 13.4 Hct: 39.6 Platelet: 193 Neutrophil %: 72.5 Glucose Level: 82 Sodium Level: 131 L Potassium Level: 3.8 BUN: 21.0 Creatinine Lvl (s): 1.06 Imaging Results and Diagnostics XR Humerus Minimum 2 Views Right Result Date: July 11, 2023 Verified By: RAF CALLOWAY, KAN Acosta CLINICAL STATEMENT: IMPRESSION: 1. Chronic appearing fracture of the distal humerus.2. Degenerative changes of the shoulder and acromioclavicular joint.3. Lucency surrounding the elbow prosthesis could be representativeofloosening, infection, or particle disease. XR Chest 1 View Result Date: July 10, 2023 Verified By: FATEMEH GEORGES MD CLINICAL STATEMENT: IMPRESSION: No significant interval change. To further characterize the right humeral findings, dedicated right humeralradiographs are recommended. I have personally reviewed the images of this examination and agree with theresident's findings and interpretation. EKG EKG - Completed -- 07/10/23 21:37:00 EST EKG - Completed -- 07/11/23 13:30:00 EST, Post Tikosyn EKG [AOH] - Completed -- 07/12/23 0:00:00 EST Electrocardiogram (EKG) - InProcess -- 07/12/23 12:00:00 EST, Post 3rd Tikosyn dose Assessment/Plan 1. Acute hypoxic respiratory failure Secondary to influenza A infection. Required 5L nasal cannula of supplemental oxygen upon arrival to ED as patient was 85% on room air. Patient currently on 4L nasal cannula of supplemental oxygen. Does not wear supplemental oxygen at home. Continue to wean oxygen as patient tolerates. Chest x-ray shows no significant interval change. Tamiflu to be continued for at least 5 days, per ID. 2. Encephalopathy acute Likely due to underlying infection. Neuro was consulted. CT head shows no acute abnormality on admission. Mentation return to baseline. Continue to monitor. 3. Influenza A Acute respiratory failure secondary to influenza A infection. Continue Tamiflu for at least 5 days and longer if symptomatic, per ID. ID to sign off. 4. Pneumonia Secondary to influenza A infection. Continue Tamiflu course per ID and supplemental oxygen support as needed. Encourage cough and deep breathing. 5. Cystitis Patient started on Rocephin prophylactically upon admission. Urine culture positive for E. coli ESBL. Rocephin was discontinued and started on ertapenem. ID consulted for further review. ID to discontinue antibiotics given asymptomatic bacteremia. ID to sign off. 6. A-fib Patient found to be in atrial flutter with RVR. Given PO diltiazem and digoxin that were unsuccessful in conversion. Attempted cardioversion twice and was unsuccessful. Was started on a diltiazem drip that was eventually switched to PO Toprol-XL 100mg BID and PO diltiazem 60mg QID. Management per cardiology. Currently on diltiazem and metoprolol. EP consulted for ablation evaluation and further management. Tikosyn initiated and continued. Eliquis for stroke prophylaxis. Digoxinto be held due to CRISTIAN and CKD. Diuresis avoided due to CRISTIAN. 7. Fall Status post fall-imaging concerning for intertrochanteric/lesser trochanteric and subtrochanteric fractures likely subacute to chronic. Chest x-ray shows no significant interval change. X-ray of the right humerus completed shows chronic appearing fracture in the distal humerus. Orthopedics evaluated patient given these findings, recommend no surgical intervention, follow-up outpatient. 8. Type 2 diabetes mellitus Blood sugars ranging from 70-213 mg/dL. Continue sliding scale insulin and glimepiride. Most [id number] 6.4. 9. Hyponatremia Sodium is 133. Continue to monitor 10. Weakness Continue to increase physical activity as patient tolerates. Discussed with Dr. Berry. Time Spent 25 minutes spent interviewing patient, reviewing plan of care, and documentation. Digitally Signed by Magali Norman Student MSN-PAINTER SKI EDGE on 07/12/2023 04:07 PM [facility] [id number] Infectious disease Consult note Date of Service 07/12/2023 Reason for Consultation ESBL UTI Referring Physician Britt Hopkins CNP History of Present Illness 73-year-old female with past medical history of CVA, proximal atrial fibrillation on Eliquis, hypertension, type 2 diabetes, chronic right hip fracture, heart failure presents from [place] after suffering fall at [facility] as well as fever and altered mental status. Initially admitted to the CCU under ca rdiology services for management of a flutter with RVR, failed 2 cardioversions and started on diltiazem drip. She was found to have UTI, possible pneumonia. Labs on admission significant for creatinine 1.14, proBNP 7713. Patient was found to be febrile, tachycardic, tachypneic, hypertensive and hypoxic on 2 L. Tested positive for influenza A. MRSA PCR ispositive. Urinalysis with positive nitrates, pyuria. Urine culture positive for E. coli ESBL. Bloodcultures show no growth to date. Initial chest x-ray is unremarkable. Concerns for fractures, x-rayof the right hip shows fracture involving the lesser trochanter zone and subtrochanteric zone of the right femur. Orthopedics planning on no surgical intervention. X-ray of the right elbow shows chronic appearing fracture, lucency surrounding elbow prosthesis could be loosening or infection. Empirically on ertapenem and Tamiflu. ID has been consulted for ESBL UTI. Patient evaluated at the bedside. She is resting in bed comfortably in no acute distress. Patient is clinically improving, complains of mild shortness of breath and nonproductive cough. No nausea, vomiting or diarrhea. No abdominal pain. No urinary frequency, urgency or dysuria. No fever, chills ornight sweats. No back or joint pain. She does have hardware in her right elbow with no pain, history of right hip prosthesis with no pain. Review of Systems Pertinent positives included within the HPI. Physical Exam Vitals and Measurements T: 36.9 C (Oral) TMIN: 36.6 C (Oral) TMAX: 37.0 C (Oral) HR: 76(Apical) RR: 20 BP: 112/64 SpO2: 94% Weight Dosing Weight: 89 kg (07/10/23) General: No acute distress. Alert and Appropriate Skin: No rash. Warm, Dry, Intact HEENT: Head is normocephalic and atraumatic. No lesions. Pupils equal in size. Extraocular movements within normal limits. Nose: No septal deviation. Mouth: Oropharynx mucosa is without lesion. Neck: Supple. No lymphadenopathy, thyromegaly noted. Lungs: Respirations are unlabored, bilaterally clear breath sounds with no crepitation or wheeze. Cardiovascular: Heart is regular rhythm, S1S2, no murmur Abdomen: Abdomen is soft, nontender, nondistended. Bowel sounds positive all four quadrants. Extremities: No clubbing, cyanosis or edema. Peripheral pulses palpable. Adequate peripheral circulation. Neurological: The patient is awake, oriented to person, place and time. Following simple commands, moving all extremities. Lab Results 07/12 03:59 WBC: 3.1 L Hgb: 12.8 Hct: 38.7 Platelet: 180 Neutrophil %: 62.1 Glucose Level: 61 L Sodium Level: 133 L Potassium Level: 3.8 BUN: 29.0 H Creatinine Lvl (s): 1.35 H 07/11 05:14 WBC: 5.6 Hgb: 13.4 Hct: 39.6 Platelet: 193 Neutrophil %: 72.5 Glucose Level: 82 Sodium Level: 131 L Potassium Level: 3.8 BUN: 21.0 Creatinine Lvl (s): 1.06 07/10 23:57 WBC: 5.4 Hgb: 13.4 Hct: 40.2 Platelet: 195 Neutrophil %: 83.5 H Glucose Level: 132 H Sodium Level: 131 L Potassium Level: 3.9 BUN: 14.0 Creatinine Lvl (s): 0.84 Imaging Results and Diagnostics XR Humerus Minimum 2 Views Right Result Date: July 11, 2023 Verified By: KAN BRADLEY MD CLINICAL STATEMENT: IMPRESSION: 1. Chronic appearing fracture of the distal humerus.2. Degenerative changes of the shoulder and acromioclavicular joint.3. Lucency surrounding the elbow prosthesis could be representativeofloosening, infection, or particle disease. XR Chest 1 View Result Date: July 10, 2023 Verified By: FATEMEH GEORGES MD CLINICAL STATEMENT: IMPRESSION: No significant interval change. To further characterize the right humeral findings, dedicated right humeralradiographs are recommended. I have personally reviewed the images of this examination and agree with theresident's findings and interpretation. EKG EC07/12/23: ATRIAL FLUTTER WITH PREDOMINANT 3:1 AV BLOCK LOW VOLTAGE, EXTREMITY LEADS NONSPECIFIC T ABNORMALITIES, ANTERIOR LEADS PROLONGED QT INTERVAL Electronic Signature: MANDO PALENCIA MD 07/12/2023 09:58:58 Assessment/Plan 1. Asymptomatic bacteriuria 2. Influenza A 3. Acute hypoxic respiratory failure 4. Fever 5. Metabolic encephalopathy 6. Type 2 diabetes 7. A flutter 8. Chronic right hip fracture 9. Right elbow fracture 73-year-old female with past medical history of CVA, proximal A-fib on Eliquis, hypertension, type 2 diabetes, chronic right hip fracture and heart failure presents from [place] after suffering fall[facility] with fever and altered mental status. Initially admitted to the CCU under cardiology services for management of a flutter with RVR. She was also found to have UTI, possible pneumonia. Patient was found to be febrile, tachycardic, tachypneic, hypertensive and hypoxic. Tested positive for influenza A. She was also found to have UTI with urine culture positive for ESBL E. coli so ID has been following. Patient presented with fever and hypoxia, tested positive for influenza A. She is currently tolerating 4 L nasal cannula. Additionally had concerns for urinary tract infection. Urinalysis with positive nitrate, pyuria. Urine culture grew ESBL E. coli. No urinary symptoms. Likely fever and leukocytosis related to influenza. Final recommendations: Due to asymptomatic bacteriuria, will discontinue ertapenem. No evidence of acute UTI. In regards to influenza, would recommend to continue Tamiflu for at least 5 days, possibly longer depending on symptomatology. ID will sign off. Please call for further questions or concerns. Plan of care discussed in depth with patient. All questions answered. This is a shared/split visit with my collaborating physician Dr. Rylan Lombardi. Any changes to the plan will be added to end as an addendum. Problem List/Past Medical History Ongoing No qualifying data Historical No qualifying data Procedure/Surgical History No qualifying data available. Medications Inpatient amLODIPine, 5 mg= 1 tab(s), Oral, qDay atorvastatin, 40 mg= 1 tab(s), Oral, qDay Bactroban Ointment/Cream (Mupirocin), 1 alfonzo, Topical, TID Dextrose 50% IV Push, 12.5 gram(s)= 25 mL, IV Push, AsDirected, PRN dilTIAZem, 60 mg= 1 tab(s), Oral, QID docusate-senna 50 mg-8.6 mg oral tablet, 2 tab(s), Oral, qHS Dofetilide Pharmacy Information, 1 EA, Miscellaneous, Daily DuoNeb, 3 mL, Inhalation, q4hRT, PRN Effer-K 20 mEq oral tablet, effervescent, 20 mEq= 1 tab(s), Oral, qDay, PRN Effer-K 20 mEq oral tablet, effervescent, 40 mEq= 2 tab(s), Oral, qDay, PRN Eliquis, 5 mg= 1 tab(s), Oral, BID ertapenem Feosol, 325 mg= 1 tab(s), Oral, qDayM HumaLOG 100 units/mL subcutaneous solution, Give 0-5 units/dose, Subcutaneous, TIDAC magnesium sulfate for IV bolus, 2 gram(s)= 50 mL, IV Piggyback, AsDirected, PRN magnesium sulfate for IV bolus, 4 gram(s)= 100 mL, IV Piggyback, AsDirected, PRN magnesium sulfate for IV bolus magnesium sulfate for IV bolus, 2 gram(s)= 50 mL, IV Piggyback, qDay, PRN melatonin, 3 mg= 1 tab(s), Oral, qHS, PRN Miralax Powder Packet, 17 gram(s)= 15 mL, Oral, qDay, PRN oxybutynin 15 mg/24 hr oral tablet, extended release, 15 mg= 3 tab(s), Oral, BID potassium chloride, 20 mEq= 1 tab(s), Oral, AsDirected, PRN potassium chloride, 40 mEq= 2 tab(s), Oral, AsDirected, PRN potassium chloride, 40 mEq= 2 tab(s), Oral, AsDirected, PRN potassium chloride bolus, 20 mEq= 100 mL, IV Piggyback, AsDirected, PRN sertraline, 100 mg= 1 tab(s), Oral, qDay Tamiflu, 75 mg= 1 cap(s), Oral, BID Tikosyn, 250 mcg= 1 cap(s), Oral, q12hr Toprol-XL, 100 mg= 1 tab(s), Oral, BID Tylenol, 650 mg= 2 tab(s), Oral, q4h, PRN Tylenol, 650 mg= 2 tab(s), Oral, q4h, PRN Home amLODIPine 10 mg oral tablet, 10 mg= 1 tab(s), Oral, qDay atorvastatin 20 mg oral tablet, 20 mg= 1 tab(s), Oral, qDay, Not taking Colace 100 mg oral capsule, 100 mg= 1 cap(s), Oral, BID, PRN DilTIAZem (Eqv-Cardizem CD) 240 mg/24 hours oral capsule, extended release, 240 mg= 1 cap(s), Oral,qDay docusate-senna 50 mg-8.6 mg oral tablet, 2 tab(s), Oral, qHS Eliquis 5 mg oral tablet, 5 mg= 1 tab(s), Oral, BID ferrous gluconate 324 mg (38 mg elemental iron) oral tablet, 324 mg= 1 tab(s), Oral, qDay furosemide 20 mg oral tablet, 20 mg= 1 tab(s), Oral, qDay glimepiride 4 mg oral tablet, 4 mg= 1 tab(s), Oral, BID HumaLOG 100 units/mL subcutaneous solution, Give 0-5 units/dose, Subcutaneous, TIDAC, Not taking metFORMIN 1000 mg oral tablet (IR), 1000 mg= 1 tab(s), Oral, BID Metoprolol Tartrate 100 mg oral tablet, 100 mg= 1 tab(s), Oral, BID MiraLax oral powder for reconstitution, Oral, qDay, PRN Multivitamin, 1 tab(s), Oral, qDay oxybutynin 15 mg/24 hr oral tablet, extended release, 15 mg= 1 tab(s), Oral, BID sertraline 100 mg oral tablet, 100 mg= 1 tab(s), Oral, qDay Tylenol 325 mg oral capsule, 650 mg, Oral, q4h, PRN Tylenol 325 mg oral capsule, 650 mg, Oral, q4h, PRN Vitamin D3, 50 mcg= 1 tab(s), Oral, Daily Allergies Monopril pioglitazone Family History Family history is unknown Immunizations pneumococcal 13-valent conjugate vaccine: 0.5 unknown unit (03/04/20) SARS-CoV-2 (COVID-19) mRNA-1273 vaccine: 50 unknown unit (03/10/21) SARS-CoV-2 (COVID-19) mRNA-1273 vaccine: 0.5 unknown unit (08/11/20) SARS-CoV-2 (COVID-19) mRNA-1273 vaccine: 0.5 unknown unit (07/14/20) Digitally Signed by CAROLA CHO on 07/12/2023 02:06 PM [id number] Note Date of Service 07-12-2023 Chief Complaint flu A Subjective Patient is a 73-year-old female with past medical history significant for CVA, proximal A-fib on Eliquis, hypertension, type 2 diabetes, chronic right hip fracture, heart failure preserved EF [place] suffering a [facility] at [facility]. She was admitted to cardiology service after found to be in atrial flutter with RVR and had 2 failed cardioversions. Was started on a diltiazem drip. Mentation was altered in the [place] ER was found to be febrile with UTI and pneumonia. Patient also found to be positive for influenza A. She was started on Rocephin, doxycycline and Tamiflu. Requiring supplemental oxygen for hypoxia. Neurology consulted for confusion was metabolic encephalopathy due to underlying infection. Imaging concerning for intertrochanteric/lesser trochanteric and subtrochanteric fractures likely subacute to chronic. Evaluated by orthopedics and recommended intervention at this time. Chest x-ray shows no significant interval change. X- ray of the right humerus completed culture positive for shows chronic appearing fracture in the distal humerus. ESBL, Rocephin was discontinued and patient was given a dose of ertapenem.ID was consulted who recommended discontinuation of antibiotics given asymptomatic bacteria. Patient's mentation is much improved today. She is alert and oriented to recall up after hospitalization. Objective Vitals and Measurements T: 36.9 C (Oral) TMIN: 36.8 C (Oral) TMAX: 37.0 C (Oral) HR: 55(Monitored) RR: 20 BP: 124/64 SpO2: 93% Intake and Output 7AM Yesterday to 7AM Today Intake and Output (Last 24 hours) Intake Oral Intake 660.00 Output Urinary Catheter Output: 950.00 Stool Count 1.00 Total Summary Total Intake 660.00 Total Output 950.00 Fluid Balance -290.00 Physical Exam Constitutional: Patient is alert and oriented x3. In no acute distress. Eyes: PERRLA, EOM intact. ENT: hearing grossly intact, mucous membranes moist, Respiratory: Breathing nonlabored, lungs clear to auscultation bilaterally. Heart: Regular rate and rhythm. S1 S2 heard. GI: Bowel sounds x4 quadrants. No rebound tenderness or guarding. Neuro: speech clear. REGAN equally. memory intact Skin: no rashes or lesions noted. skin warm, dry and intact. Weight Dosing Weight: 89 kg (07/10/23) Medications Medications (30) Active Scheduled: (14) amLODIPine 5 mg tablet 5 mg 1 tab(s), Oral, qDay apixaban 5 mg tablet 5 mg 1 tab(s), Oral, BID atorvastatin 40 mg tablet 40 mg 1 tab(s), Oral, qDay diltiazem 60 mg tablet 60 mg 1 tab(s), Oral, QID docusate-senna (Senokot S) 50 mg-8.6 mg Tablet 2 tab(s), Oral, qHS dofetilide 250 mcg capsule 250 mcg 1 cap(s), Oral, q12hr ferrous sulfate 325 mg Tablet 325 mg 1 tab(s), Oral, qDayM insulin lispro 100 units/mL Soln (3 mL) Give 0-5 units/dose, Subcutaneous, TIDAC metoprolol succinate 100 mg ER tablet 100 mg 1 tab(s), Oral, BID Misc communication order 1 EA, Miscellaneous, Daily mupirocin 2% Ointment 22 Gram(s) tube 1 alfonzo, Topical, TID oseltamivir 75 mg capsule 75 mg 1 cap(s), Oral, BID oxybutynin 5 mg ER tablet 15 mg 3 tab(s), Oral, BID sertraline 100 mg tablet 100 mg 1 tab(s), Oral, qDay Continuous: (0) PRN: (16) acetaminophen 325 mg Tablet 650 mg 2 tab(s), Oral, q4h acetaminophen 325 mg Tablet 650 mg 2 tab(s), Oral, q4h albuterol - ipratropium 2.5 mg-0.5 mg/3 mL Inhal Laquita UD 3 mL, Inhalation, q4hRT dextrose 50% Solution Disp syringe 50 mL 12.5 gram(s) 25 mL, IV Push, AsDirected magnesium sulfate 4 gram(s)/100mL PMX 4 g 100 mL, IV Piggyback, AsDirected magnesium sulfate 50% (500mg/mL) 6 g 12 mL, IV Piggyback, AsDirected magnesium sulfate PMX 2 g 50 mL, IV Piggyback, AsDirected magnesium sulfate PMX 2 g 50 mL, IV Piggyback, qDay melatonin 3 mg tablet 3 mg 1 tab(s), Oral, qHS polyethylene glycol 3350 - UD packet 17 gram(s) 15 mL, Oral, qDay potassium bicarbonate-citric acid 20 mEq EFF tablet 20 mEq 1 tab(s), Oral, qDay potassium bicarbonate-citric acid 20 mEq EFF tablet 40 mEq 2 tab(s), Oral, qDay potassium chloride (PMX) 20 mEq/100 mL 20 mEq 100 mL, IV Piggyback, AsDirected potassium chloride 20 mEq ER tablet 20 mEq 1 tab(s), Oral, AsDirected potassium chloride 20 mEq ER tablet 40 mEq 2 tab(s), Oral, AsDirected potassium chloride 20 mEq ER tablet 40 mEq 2 tab(s), Oral, AsDirected Lab Results 07/12 03:59 WBC: 3.1 L Hgb: 12.8 Hct: 38.7 Platelet: 180 Neutrophil %: 62.1 Glucose Level: 61 L Sodium Level: 133 L Potassium Level: 3.8 BUN: 29.0 H Creatinine Lvl (s): 1.35 H 07/11 05:14 WBC: 5.6 Hgb: 13.4 Hct: 39.6 Platelet: 193 Neutrophil %: 72.5 Glucose Level: 82 Sodium Level: 131 L Potassium Level: 3.8 BUN: 21.0 Creatinine Lvl (s): 1.06 Imaging Results and Diagnostics XR Humerus Minimum 2 Views Right Result Date: July 11, 2023 Verified By: KAN BRADLEY MD CLINICAL STATEMENT: IMPRESSION: 1. Chronic appearing fracture of the distal humerus.2. Degenerative changes of the shoulder and acromioclavicular joint.3. Lucency surrounding the elbow prosthesis could be representativeofloosening, infection, or particle disease. XR Chest 1 View Result Date: July 10, 2023 Verified By: FATEMEH GEORGES MD CLINICAL STATEMENT: IMPRESSION: No significant interval change. To further characterize the right humeral findings, dedicated right humeralradiographs are recommended. I have personally reviewed the images of this examination and agree with theresident's findings and interpretation. EKG EKG - Completed -- 07/10/23 21:37:00 EST EKG - Completed -- 07/11/23 13:30:00 EST, Post Tikosyn EKG [AOH] - Completed -- 07/12/23 0:00:00 EST Electrocardiogram (EKG) - InProcess -- 07/12/23 12:00:00 EST, Post 3rd Tikosyn dose Assessment/Plan 1. Acute hypoxic respiratory failure 2. Influenza A 3. A-fib 4. Cystitis 5. Encephalopathy acute 6. Type 2 diabetes mellitus 7. Hyponatremia 8. Fall Acute hypoxic respiratory failure secondary to influenza A. Still requiring supplemental oxygen, was 85% on 5 L of oxygen when she does not wear oxygen chronically. Continue to wean as tolerated. Continue Tamiflu for 5 days total. Chest x-ray shows no significant interval change. Urine culture positive for E. coli ESBL. Rocephin was discontinued and patient was given dose of ertapenem. ID was consulted for further review who will discontinue antibiotics altogether given asymptomatic bacteria. Encephalopathy due to underlying infection, neuro was consulted. CT head shows no acute abnormalityon admission. Mentation back to baseline. Diabetes mellitus type 2 Continue corrective scale insulin, glimepiride A1c 6.4 Hyponatremia sodium is 133, continue to monitor Management of atrial fibrillation per cardiology, currently on diltiazem and metoprolol with EP consulted. Continues on Tikosyn. Status post fall-imaging concerning for intertrochanteric/lesser trochanteric and subtrochanteric fractures likely subacute to chronic. Chest x-ray shows no significant interval change. X-ray of the right humerus completed shows chronic appearing fracture in the distal humerus. Orthopedics evaluated patient given these findings, recommend no surgical intervention, follow-up outpatient. Discussed with Dr. Berry Digitally Signed by BRITT HOPKINS on 07/12/2023 02:04 PM [facility] [id number] Note. MICRO - Microbiology PROCEDURE: Urine Culture [*1] SOURCE: Urine BODY SITE: COLLECTED DATE/TIME: 07/10/2023 23:48 EST RECEIVED DATE/TIME: 07/11/2023 07:05 EST START DATE/TIME: 07/11/2023 07:05 EST FREE TEXT SOURCE: FINAL REPORTS Final Report [] Verified Date/Time/Personnel: 07/12/2023 11:01 EST 50,000 - 100,000 cfu/ml Escherichia coli ESBL Refer to previous culture for susceptibility. [id number] collected 07-10-23 Extended-Spectrum B-Lactamase isolate may be clinically resistant to therapy with Penicillins, Cephalosporinsor Aztreonam despite apparent in vitro susceptibility to some of these agents. Use of Imipenem is currently restricted to Infectious Disease /Intensivists. Please consult Physicians accordingly. SUSCEPTIBILITY RESULTS Escherichia coli ESBL Antibiotic LATISHA Dilut LATISHA Inter ID Panel Not Not Applicable Applicable Performing Locations *1: This test was performed at: [facility], [address] [place] [address], [facility] , [facility] ([place])07-12-2023 Orthopaedic surgery Consult note Date of Service 07/11/2023 Reason for Consultation Possible acute right hip fracture History of Present Illness This is a 73-year-old female admitted for A-fib with RVR resistant to initial cardioversion attempts with past medical history status post right total elbow arthroplasty (Girish, years ago), right cephalomedullary nail (Tristian, years ago ) who complains of right hip and knee pain. The patient states that she has not recently sustained any injury to the right hip however it was noted on chart review that she allegedly fell recently. The patient states that she has pain in her groin and knee while bearing weight on the right side however otherwise her main complaint is her right knee pain. She denies pain of any kind or new injury to the right elbow. She denies any other new or worsening ort hopedic complaints at this time. Review of Systems Pertinent positives and negative were listed above. All other systems reviewed were negative. Physical Exam Vitals and Measurements T: 36.6 C (Oral) TMIN: 36.6 C (Oral) TMAX: 39.0 C (Oral) HR: 62(Monitored) RR: 24 BP: 92/58 SpO2: 93% HT: 155 cm WT: 89 kg BMI: 37.04 Weight Dosing Weight: 89 kg (07/10/23) General: Alert and oriented x 3 MSK: No pain with logroll bilaterally. Patient complains of minor right knee pain with straight legraise on that side but denies pain in her groin, thigh, hip region with this maneuver. She does have mild tenderness to palpation of the right trochanteric area without palpable effusion. There is noeffusion to bilateral knees. The right elbow demonstrates full flexion and approximately 120 degrees of extension without pain. There is crepitus on exam which the patient states is normal for her. Remainder of MSK exam is benign other than for scattered small skin tears of her bilateral lower extremities. Sensation is grossly intact to light touch bilaterally uppers and lowers, DP pulse is palpab le bilaterally. Lab Results 07/11 05:14 WBC: 5.6 Hgb: 13.4 Hct: 39.6 Platelet: 193 Neutrophil %: 72.5 Glucose Level: 82 Sodium Level: 131 L Potassium Level: 3.8 BUN: 21.0 Creatinine Lvl (s): 1.06 07/10 23:57 WBC: 5.4 Hgb: 13.4 Hct: 40.2 Platelet: 195 Neutrophil %: 83.5 H Glucose Level: 132 H Sodium Level: 131 L Potassium Level: 3.9 BUN: 14.0 Creatinine Lvl (s): 0.84 Imaging Results and Diagnostics X-rays of the right humerus and right hip reviewed independently by me. There is a chronic appearing fracture of the right medial condyle. Total elbow arthroplasty implant is well-fixed albeit not entirely anatomic. There is a small likely chronic appearing fracture line in the proximal femur adjacent to the cephalomedullary nail that is in place there on the right. There is robust callus formation surrounding this area. XR Humerus Minimum 2 Views Right Result Date: July 11, 2023 Verified By: KAN BRADLEY MD CLINICAL STATEMENT: IMPRESSION: 1. Chronic appearing fracture of the distal humerus.2. Degenerative changes of the shoulder and acromioclavicular joint.3. Lucency surrounding the elbow prosthesis could be representativeofloosening, infection, or particle disease. XR Chest 1 View Result Date: July 10, 2023 Verified By: FATEMEH GEORGES MD CLINICAL STATEMENT: IMPRESSION: No significant interval change. To further characterize the right humeral findings, dedicated right humeralradiographs are recommended. I have personally reviewed the images of this examination and agree with theresident's findings and interpretation. EKG EC07/11/23: ATRIAL FLUTTER LOW VOLTAGE, EXTREMITY LEADS Electronic Signature: MANDO PALENCIA MD 07/11/2023 12:08:20 Assessment/Plan A-fib Acute hypoxic respiratory failure Cystitis Encephalopathy acute Fall Hyponatremia Influenza A Pneumonia Type 2 diabetes mellitus Weakness 73-year-old female presents with subacute appearing right periprosthetic proximal femur fracture (status post right cephalomedullary nail years ago). Clinical evaluation is overall reassuring. -Weight bearing: Weightbearing as tolerated to the right lower extremity and right upper extremity.Should this the unable to be performed by the patient, recommend weightbearing as tolerated with a walker. The patient may follow-up with Dr. Lubin in 2 weeks time. -Discussed with attending There is no further orthopedic intervention indicated at this time. The orthopedics service will continue to follow the patient peripherally. Please do not hesitate to reach out or re-consult for anyadditional concerns or questions. Problem List/Past Medical History Ongoing No qualifying data Historical No qualifying data Procedure/Surgical History No qualifying data available. Medications Inpatient amLODIPine, 5 mg= 1 tab(s), Oral, qDay atorvastatin, 40 mg= 1 tab(s), Oral, qDay Bactroban Ointment/Cream (Mupirocin), 1 alfonzo, Topical, TID cefTRIAXone, 2 gram(s)= 20 mL, IV Push (INT), qDay Dextrose 50% IV Push, 12.5 gram(s)= 25 mL, IV Push, AsDirected, PRN dilTIAZem, 60 mg= 1 tab(s), Oral, QID docusate-senna 50 mg-8.6 mg oral tablet, 2 tab(s), Oral, qHS Dofetilide Pharmacy Information, 1 EA, Miscellaneous, Daily DuoNeb, 3 mL, Inhalation, q4hRT, PRN Effer-K 20 mEq oral tablet, effervescent, 20 mEq= 1 tab(s), Oral, qDay, PRN Effer-K 20 mEq oral tablet, effervescent, 40 mEq= 2 tab(s), Oral, qDay, PRN Eliquis, 5 mg= 1 tab(s), Oral, BID Feosol, 325 mg= 1 tab(s), Oral, qDayM glimepiride, 4 mg= 2 tab(s), Oral, BID HumaLOG 100 units/mL subcutaneous solution, Give 0-5 units/dose, Subcutaneous, TIDAC Lasix, 40 mg= 4 mL, IV Push, BID magnesium sulfate for IV bolus, 2 gram(s)= 50 mL, IV Piggyback, AsDirected, PRN magnesium sulfate for IV bolus, 4 gram(s)= 100 mL, IV Piggyback, AsDirected, PRN magnesium sulfate for IV bolus magnesium sulfate for IV bolus, 2 gram(s)= 50 mL, IV Piggyback, qDay, PRN melatonin, 3 mg= 1 tab(s), Oral, qHS, PRN Miralax Powder Packet, 17 gram(s)= 15 mL, Oral, qDay, PRN oxybutynin 15 mg/24 hr oral tablet, extended release, 15 mg= 3 tab(s), Oral, BID potassium chloride, 20 mEq= 1 tab(s), Oral, AsDirected, PRN potassium chloride, 40 mEq= 2 tab(s), Oral, AsDirected, PRN potassium chloride, 40 mEq= 2 tab(s), Oral, AsDirected, PRN potassium chloride bolus, 20 mEq= 100 mL, IV Piggyback, AsDirected, PRN sertraline, 100 mg= 1 tab(s), Oral, qDay Tamiflu, 75 mg= 1 cap(s), Oral, BID Tikosyn, 250 mcg= 1 cap(s), Oral, q12hr Toprol-XL, 100 mg= 1 tab(s), Oral, BID Tylenol, 650 mg= 2 tab(s), Oral, q4h, PRN Tylenol, 650 mg= 2 tab(s), Oral, q4h, PRN Home amLODIPine 10 mg oral tablet, 10 mg= 1 tab(s), Oral, qDay atorvastatin 20 mg oral tablet, 20 mg= 1 tab(s), Oral, qDay, Not taking Colace 100 mg oral capsule, 100 mg= 1 cap(s), Oral, BID, PRN DilTIAZem (Eqv-Cardizem CD) 240 mg/24 hours oral capsule, extended release, 240 mg= 1 cap(s), Oral,qDay docusate-senna 50 mg-8.6 mg oral tablet, 2 tab(s), Oral, qHS Eliquis 5 mg oral tablet, 5 mg= 1 tab(s), Oral, BID ferrous gluconate 324 mg (38 mg elemental iron) oral tablet, 324 mg= 1 tab(s), Oral, qDay furosemide 20 mg oral tablet, 20 mg= 1 tab(s), Oral, qDay glimepiride 4 mg oral tablet, 4 mg= 1 tab(s), Oral, BID HumaLOG 100 units/mL subcutaneous solution, Give 0-5 units/dose, Subcutaneous, TIDAC, Not taking metFORMIN 1000 mg oral tablet (IR), 1000 mg= 1 tab(s), Oral, BID Metoprolol Tartrate 100 mg oral tablet, 100 mg= 1 tab(s), Oral, BID MiraLax oral powder for reconstitution, Oral, qDay, PRN Multivitamin, 1 tab(s), Oral, qDay oxybutynin 15 mg/24 hr oral tablet, extended release, 15 mg= 1 tab(s), Oral, BID sertraline 100 mg oral tablet, 100 mg= 1 tab(s), Oral, qDay Tylenol 325 mg oral capsule, 650 mg, Oral, q4h, PRN Tylenol 325 mg oral capsule, 650 mg, Oral, q4h, PRN Vitamin D3, 50 mcg= 1 tab(s), Oral, Daily Allergies Monopril pioglitazone Family History Family history is unknown Immunizations pneumococcal 13-valent conjugate vaccine: 0.5 unknown unit (03/04/20) SARS-CoV-2 (COVID-19) mRNA-1273 vaccine: 50 unknown unit (03/10/21) SARS-CoV-2 (COVID-19) mRNA-1273 vaccine: 0.5 unknown unit (08/11/20) SARS-CoV-2 (COVID-19) mRNA-1273 vaccine: 0.5 unknown unit (07/14/20) Digitally Signed by JOSÉ INIGUEZ MD on 07/11/2023 04:46 PM [facility] [id number] NoteATRIAL FLUTTER WITH PREDOMINANT 4:1 AV BLOCK Electronic Signature: MANDO PALENCIA MD 07/13/2023 11:01:[address] [place] [address] 02-27-2024 Infectious disease Consult note Date of Service 07/12/2023 Reason for Consultation ESBL UTI Referring Physician Britt Hopkins CNP History of Present Illness 73-year-old female with past medical history of CVA, proximal atrial fibrillation on Eliquis, hypertension, type 2 diabetes, chronic right hip fracture, heart failure presents from [place] after suffering fall at [facility] as well as fever and altered mental status. Initially admitted to the CCU under ca rdiology services for management of a flutter with RVR, failed 2 cardioversions and started on diltiazem drip. She was found to have UTI, possible pneumonia. Labs on admission significant for creatinine 1.14, proBNP 7713. Patient was found to be febrile, tachycardic, tachypneic, hypertensive and hypoxic on 2 L. Tested positive for influenza A. MRSA PCR ispositive. Urinalysis with positive nitrates, pyuria. Urine culture positive for E. coli ESBL. Bloodcultures show no growth to date. Initial chest x-ray is unremarkable. Concerns for fractures, x-rayof the right hip shows fracture involving the lesser trochanter zone and subtrochanteric zone of the right femur. Orthopedics planning on no surgical intervention. X-ray of the right elbow shows chronic appearing fracture, lucency surrounding elbow prosthesis could be loosening or infection. Empirically on ertapenem and Tamiflu. ID has been consulted for ESBL UTI. Patient evaluated at the bedside. She is resting in bed comfortably in no acute distress. Patient is clinically improving, complains of mild shortness of breath and nonproductive cough. No nausea, vomiting or diarrhea. No abdominal pain. No urinary frequency, urgency or dysuria. No fever, chills ornight sweats. No back or joint pain. She does have hardware in her right elbow with no pain, history of right hip prosthesis with no pain. Review of Systems Pertinent positives included within the HPI. Physical Exam Vitals and Measurements T: 36.9 C (Oral) TMIN: 36.6 C (Oral) TMAX: 37.0 C (Oral) HR: 76(Apical) RR: 20 BP: 112/64 SpO2: 94% Weight Dosing Weight: 89 kg (07/10/23) General: No acute distress. Alert and Appropriate Skin: No rash. Warm, Dry, Intact HEENT: Head is normocephalic and atraumatic. No lesions. Pupils equal in size. Extraocular movements within normal limits. Nose: No septal deviation. Mouth: Oropharynx mucosa is without lesion. Neck: Supple. No lymphadenopathy, thyromegaly noted. Lungs: Respirations are unlabored, bilaterally clear breath sounds with no crepitation or wheeze. Cardiovascular: Heart is regular rhythm, S1S2, no murmur Abdomen: Abdomen is soft, nontender, nondistended. Bowel sounds positive all four quadrants. Extremities: No clubbing, cyanosis or edema. Peripheral pulses palpable. Adequate peripheral circulation. Neurological: The patient is awake, oriented to person, place and time. Following simple commands, moving all extremities. Lab Results 07/12 03:59 WBC: 3.1 L Hgb: 12.8 Hct: 38.7 Platelet: 180 Neutrophil %: 62.1 Glucose Level: 61 L Sodium Level: 133 L Potassium Level: 3.8 BUN: 29.0 H Creatinine Lvl (s): 1.35 H 07/11 05:14 WBC: 5.6 Hgb: 13.4 Hct: 39.6 Platelet: 193 Neutrophil %: 72.5 Glucose Level: 82 Sodium Level: 131 L Potassium Level: 3.8 BUN: 21.0 Creatinine Lvl (s): 1.06 07/10 23:57 WBC: 5.4 Hgb: 13.4 Hct: 40.2 Platelet: 195 Neutrophil %: 83.5 H Glucose Level: 132 H Sodium Level: 131 L Potassium Level: 3.9 BUN: 14.0 Creatinine Lvl (s): 0.84 Imaging Results and Diagnostics XR Humerus Minimum 2 Views Right Result Date: July 11, 2023 Verified By: KAN BRADLEY MD CLINICAL STATEMENT: IMPRESSION: 1. Chronic appearing fracture of the distal humerus.2. Degenerative changes of the shoulder and acromioclavicular joint.3. Lucency surrounding the elbow prosthesis could be representativeofloosening, infection, or particle disease. XR Chest 1 View Result Date: July 10, 2023 Verified By: FATEMEH GEORGES MD CLINICAL STATEMENT: IMPRESSION: No significant interval change. To further characterize the right humeral findings, dedicated right humeralradiographs are recommended. I have personally reviewed the images of this examination and agree with theresident's findings and interpretation. EKG EC07/12/23: ATRIAL FLUTTER WITH PREDOMINANT 3:1 AV BLOCK LOW VOLTAGE, EXTREMITY LEADS NONSPECIFIC T ABNORMALITIES, ANTERIOR LEADS PROLONGED QT INTERVAL Electronic Signature: MANDO PALENCIA MD 07/12/2023 09:58:58 Assessment/Plan 1. Asymptomatic bacteriuria 2. Influenza A 3. Acute hypoxic respiratory failure 4. Fever 5. Metabolic encephalopathy 6. Type 2 diabetes 7. A flutter 8. Chronic right hip fracture 9. Right elbow fracture 73-year-old female with past medical history of CVA, proximal A-fib on Eliquis, hypertension, type 2 diabetes, chronic right hip fracture and heart failure presents from [place] after suffering fallat [facility] with fever and altered mental status. Initially admitted to the CCU under cardiology services for management of a flutter with RVR. She was also found to have UTI, possible pneumonia. Patient was found to be febrile, tachycardic, tachypneic, hypertensive and hypoxic. Tested positive for influenza A. She was also found to have UTI with urine culture positive for ESBL E. coli so ID has been following. Patient presented with fever and hypoxia, tested positive for influenza A. She is currently tolerating 4 L nasal cannula. Additionally had concerns for urinary tract infection. Urinalysis with positive nitrate, pyuria. Urine culture grew ESBL E. coli. No urinary symptoms. Likely fever and leukocytosis related to influenza. Final recommendations: Due to asymptomatic bacteriuria, will discontinue ertapenem. No evidence of acute UTI. In regards to influenza, would recommend to continue Tamiflu for at least 5 days, possibly longer depending on symptomatology. ID will sign off. Please call for further questions or concerns. Plan of care discussed in depth with patient. All questions answered. This is a shared/split visit with my collaborating physician Dr. Rylan Lombardi. Any changes to the plan will be added to end as an addendum. Problem List/Past Medical History Ongoing No qualifying data Historical No qualifying data Procedure/Surgical History No qualifying data available. Medications Inpatient amLODIPine, 5 mg= 1 tab(s), Oral, qDay atorvastatin, 40 mg= 1 tab(s), Oral, qDay Bactroban Ointment/Cream (Mupirocin), 1 alfonzo, Topical, TID Dextrose 50% IV Push, 12.5 gram(s)= 25 mL, IV Push, AsDirected, PRN dilTIAZem, 60 mg= 1 tab(s), Oral, QID docusate-senna 50 mg-8.6 mg oral tablet, 2 tab(s), Oral, qHS Dofetilide Pharmacy Information, 1 EA, Miscellaneous, Daily DuoNeb, 3 mL, Inhalation, q4hRT, PRN Effer-K 20 mEq oral tablet, effervescent, 20 mEq= 1 tab(s), Oral, qDay, PRN Effer-K 20 mEq oral tablet, effervescent, 40 mEq= 2 tab(s), Oral, qDay, PRN Eliquis, 5 mg= 1 tab(s), Oral, BID ertapenem Feosol, 325 mg= 1 tab(s), Oral, qDayM HumaLOG 100 units/mL subcutaneous solution, Give 0-5 units/dose, Subcutaneous, TIDAC magnesium sulfate for IV bolus, 2 gram(s)= 50 mL, IV Piggyback, AsDirected, PRN magnesium sulfate for IV bolus, 4 gram(s)= 100 mL, IV Piggyback, AsDirected, PRN magnesium sulfate for IV bolus magnesium sulfate for IV bolus, 2 gram(s)= 50 mL, IV Piggyback, qDay, PRN melatonin, 3 mg= 1 tab(s), Oral, qHS, PRN Miralax Powder Packet, 17 gram(s)= 15 mL, Oral, qDay, PRN oxybutynin 15 mg/24 hr oral tablet, extended release, 15 mg= 3 tab(s), Oral, BID potassium chloride, 20 mEq= 1 tab(s), Oral, AsDirected, PRN potassium chloride, 40 mEq= 2 tab(s), Oral, AsDirected, PRN potassium chloride, 40 mEq= 2 tab(s), Oral, AsDirected, PRN potassium chloride bolus, 20 mEq= 100 mL, IV Piggyback, AsDirected, PRN sertraline, 100 mg= 1 tab(s), Oral, qDay Tamiflu, 75 mg= 1 cap(s), Oral, BID Tikosyn, 250 mcg= 1 cap(s), Oral, q12hr Toprol-XL, 100 mg= 1 tab(s), Oral, BID Tylenol, 650 mg= 2 tab(s), Oral, q4h, PRN Tylenol, 650 mg= 2 tab(s), Oral, q4h, PRN Home amLODIPine 10 mg oral tablet, 10 mg= 1 tab(s), Oral, qDay atorvastatin 20 mg oral tablet, 20 mg= 1 tab(s), Oral, qDay, Not taking Colace 100 mg oral capsule, 100 mg= 1 cap(s), Oral, BID, PRN DilTIAZem (Eqv-Cardizem CD) 240 mg/24 hours oral capsule, extended release, 240 mg= 1 cap(s), Oral,qDay docusate-senna 50 mg-8.6 mg oral tablet, 2 tab(s), Oral, qHS Eliquis 5 mg oral tablet, 5 mg= 1 tab(s), Oral, BID ferrous gluconate 324 mg (38 mg elemental iron) oral tablet, 324 mg= 1 tab(s), Oral, qDay furosemide 20 mg oral tablet, 20 mg= 1 tab(s), Oral, qDay glimepiride 4 mg oral tablet, 4 mg= 1 tab(s), Oral, BID HumaLOG 100 units/mL subcutaneous solution, Give 0-5 units/dose, Subcutaneous, TIDAC, Not taking metFORMIN 1000 mg oral tablet (IR), 1000 mg= 1 tab(s), Oral, BID Metoprolol Tartrate 100 mg oral tablet, 100 mg= 1 tab(s), Oral, BID MiraLax oral powder for reconstitution, Oral, qDay, PRN Multivitamin, 1 tab(s), Oral, qDay oxybutynin 15 mg/24 hr oral tablet, extended release, 15 mg= 1 tab(s), Oral, BID sertraline 100 mg oral tablet, 100 mg= 1 tab(s), Oral, qDay Tylenol 325 mg oral capsule, 650 mg, Oral, q4h, PRN Tylenol 325 mg oral capsule, 650 mg, Oral, q4h, PRN Vitamin D3, 50 mcg= 1 tab(s), Oral, Daily Allergies Monopril pioglitazone Family History Family history is unknown Immunizations pneumococcal 13-valent conjugate vaccine: 0.5 unknown unit (03/04/20) SARS-CoV-2 (COVID-19) mRNA-1273 vaccine: 50 unknown unit (03/10/21) SARS-CoV-2 (COVID-19) mRNA-1273 vaccine: 0.5 unknown unit (08/11/20) SARS-CoV-2 (COVID-19) mRNA-1273 vaccine: 0.5 unknown unit (07/14/20) Digitally Signed by CAROLA CHO on 07/12/2023 02:06 PM [id number] Note. MICRO - Microbiology PROCEDURE: Urine Culture [*1] SOURCE: Urine BODY SITE: COLLECTED DATE/TIME: 07/10/2023 13:59 EST RECEIVED DATE/TIME: 07/10/2023 20:09 EST START DATE/TIME: 07/10/2023 20:09 EST FREE TEXT SOURCE: FINAL REPORTS Final Report [] Verified Date/Time/Personnel: 07/12/2023 07:34 EST >100,000 cfu/ml Escherichia coli ESBL Extended-Spectrum B-Lactamase isolate may be clinically resistant to therapy with Penicillins, Cephalosporinsor Aztreonam despite apparent in vitro susceptibility to some of these agents. Use of Imipenem is currently restricted to Infectious Disease /Intensivists. Please consult Physicians accordingly. PRELIMINARY REPORTS Preliminary Report [] Verified Date/Time/Personnel: 07/11/2023 10:38 EST >100,000 cfu/ml Escherichia coli LATISHA to follow SUSCEPTIBILITY RESULTS Escherichia coli ESBL Antibiotic LATISHA Dilut LATISHA Inter Ampicillin >16 Resistant Ampicillin/ 16/8 Resistant Sulbactam Aztreonam 16 Resistant Cefazolin >16 Resistant Cefotaxime >32 Suspected ESBL Route Sales Specialist Ceftriaxone >32 Suspected ESBL Route Sales Specialist Cefuroxime >16 Resistant Ciprofloxacin >2 Resistant Ertapenem <=0.5 Susceptible Gentamicin <=2 Susceptible ID Panel Not Not Applicable Applicable Imipenem <=1 Susceptible Levofloxacin >4 Resistant Meropenem <=1 Susceptible Minocycline <=4 Susceptible Nitrofurantoin <=32 Susceptible Trimethoprim/ >2/38 Resistant Sulfa Performing Locations *1: This test was performed at: [facility], [address] [place] [address], [id number] , [facility] ([place])07-12-2023 NoteATRIAL FLUTTER WITH PREDOMINANT 3:1 AV BLOCK LOW VOLTAGE, EXTREMITY LEADS NONSPECIFIC T ABNORMALITIES, ANTERIOR LEADS PROLONGED QT INTERVAL Electronic Signature: MANDO PALENCIA MD 07/12/2023 09:58:58[facility] 02-26-2024 Cardiology Consult note Date of Service 07/11/23 Reason for Consultation atrial flutter Referring Physician Dr Santiago History of Present Illness 73-year-old female with paroxysmal atrial fibrillation, now in flutter, on Eliquis, CVA, LEIGH ANN on CPAP, acute respiratory failure (5L O2, none at home), hypertension, type 2 diabetes, right hip fracture on 12/22/2022, HFpEF who was transferred from [place] ED after a fall at [facility]. Patient reports having paroxysmal atrial fibrillation for many years. She has been compliant with Eliquis at home she states. She said there was not usually a problem. She was seeing Dr. Wesley. Patient currently denies palpitations or rapid heart beat sensation. No dizziness. No syncope. Dyspnea on exertion (yes). No orthopnea, PND, rest/exertional chest pain. No LE edema or increased abdominal girth. Review of Systems Constitutional Symptoms: Denies weight loss/gain, fever/chills, or sweats Integumentary: Denies color changes, rash, sores, or lumps Eyes: Denies vision changes, blurriness, or pain ENT: Denies epistaxis, sore throat, or dysphagia Cardiovascular: See HPI Respiratory: Denies cough, sputum, or hemoptysis Musculoskeletal: Denies new pain, weakness, or swelling Gastrointestinal: Denies nausea, vomiting, GERD, diarrhea, constipation, abdominal pain, or hematemesis Neurological: Denies seizures, coordination issues, or paralysis Genitourinary: Denies dysuria, hematuria, burning, or renal stones Hematologic/Lymphatic: Denies bleeding disorders, night sweats, or tenderness of lymph nodes Psychiatric: Denies recent anxiety or depressive episodes. Physical Exam Vitals and Measurements T: 36.6 C (Oral) TMIN: 36.6 C (Oral) TMAX: 39.0 C (Oral) HR: 60(Apical) RR: 24 BP: 92/58 SpO2: 94% HT: 155 cm WT: 89 kg BMI: 37.04 Weight Dosing Weight: 89 kg (07/10/23) General Appearance: Alert and oriented x3, no apparent distress Head: Normocephalic, atraumatic EENT: EOMI, PERRLA, mucous membranes moist Neck: Supple, no thyromegaly. Cardiac: regularly irregular, no sig mrg. Lungs: Clear to auscultation bilaterally, no wheezing, rales, rhonchi. Abdomen: Nondistended, nontender, bowel sounds present. Musculoskeletal: No gross deformities. Extremities: no significant lower extremity edema, no calf tenderness, pedal pulses are present bilaterally Neurological: No focal deficits Skin: Warm, dry, intact Psychiatric: Mood congruent, cooperative Lab Results 07/11 05:14 WBC: 5.6 Hgb: 13.4 Hct: 39.6 Platelet: 193 Neutrophil %: 72.5 Glucose Level: 82 Sodium Level: 131 L Potassium Level: 3.8 BUN: 21.0 Creatinine Lvl (s): 1.06 07/10 23:57 WBC: 5.4 Hgb: 13.4 Hct: 40.2 Platelet: 195 Neutrophil %: 83.5 H Glucose Level: 132 H Sodium Level: 131 L Potassium Level: 3.9 BUN: 14.0 Creatinine Lvl (s): 0.84 Imaging Results and Diagnostics reviewed EKG EC07/11/23: ATRIAL FLUTTER LOW VOLTAGE, EXTREMITY LEADS Electronic Signature: MANDO PALENCIA MD 07/11/2023 12:08:20 Echo Summary: 1. Left ventricle: The cavity size is normal. Wall thickness is mildly to moderately increased. Systolic function is normal. The estimated ejection fraction is 65-70%. Wall motion is normal; there are no regional wall motionabnormalities. Unable to assess diastolic function. 2. Ventricular septum: Thickness is moderately increased. 3. Mitral valve: The annulus is moderately fibrotic. The leaflets are mildly thickened. 4. Right ventricle: Systolic function is severely reduced. The RV systolic pressure by Doppler is 28 mm Hg. 5. Right atrium: The estimated right atrial pressure is 8 mm Hg. Assessment/Plan 73-year-old female with paroxysmal atrial fibrillation, now in flutter, on Eliquis, CVA, LEIGH ANN on CPAP, acute respiratory failure (5L O2, none at home), hypertension, type 2 diabetes, right hip fracture on 12/22/2022, HFpEF who was transferred from [facility] after a fall at [facility]. 1. atrial flutter with variable AV conduction, intermittent RVR, currently 4:1. Possibly course AFib, although the cycle length mostly appears regular at TCL 217 ms. No prior ablations or cardiac surgery, thus most likely CTI-dependent. She would likely benefit from buddhist of sinus rhythm. We discussed AAD for now as we won't be able to ablate her now due to resp failure. Recommend tikosyn due to superior efficay. Cr Cl is 71 . Patient agreeable. Patient reportedly had DCCV at [facility] but she does not recall this. - continue anticoagulation - initiate dofetilide 250 mcg PO q12. Monitor QTc 2 hours after each dose. Baseline QTc ~410 ms. - plan for DCCV at some point 2. Resp failure. Multifactorial. 3. LEIGH ANN on CPAP. Compliant. Continue 4. Overweight. Data suggest that exercise to improve cardiorespiratory fitness as well as weight loss of at least 10% of body weight has been associated with improvement in atrial fibrillation management and a decrease in recurrences. Discussed with patient. 5. Comorbid disease as above Thank you for the consult Joel Lacy MD Cardiac Electrophysiology [phone] Problem List/Past Medical History Ongoing No qualifying data Historical No qualifying data Procedure/Surgical History No qualifying data available. Medications Inpatient amLODIPine, 5 mg= 1 tab(s), Oral, qDay atorvastatin, 40 mg= 1 tab(s), Oral, qDay Bactroban Ointment/Cream (Mupirocin), 1 alfonzo, Topical, TID cefTRIAXone, 2 gram(s)= 20 mL, IV Push (INT), qDay Dextrose 50% IV Push, 12.5 gram(s)= 25 mL, IV Push, AsDirected, PRN dilTIAZem, 60 mg= 1 tab(s), Oral, QID docusate-senna 50 mg-8.6 mg oral tablet, 2 tab(s), Oral, qHS Dofetilide Pharmacy Information, 1 EA, Miscellaneous, Daily DuoNeb, 3 mL, Inhalation, q4hRT, PRN Effer-K 20 mEq oral tablet, effervescent, 20 mEq= 1 tab(s), Oral, qDay, PRN Effer-K 20 mEq oral tablet, effervescent, 40 mEq= 2 tab(s), Oral, qDay, PRN Eliquis, 5 mg= 1 tab(s), Oral, BID Feosol, 325 mg= 1 tab(s), Oral, qDayM glimepiride, 4 mg= 2 tab(s), Oral, BID HumaLOG 100 units/mL subcutaneous solution, Give 0-5 units/dose, Subcutaneous, TIDAC Lasix, 40 mg= 4 mL, IV Push, BID magnesium sulfate for IV bolus, 2 gram(s)= 50 mL, IV Piggyback, AsDirected, PRN magnesium sulfate for IV bolus, 4 gram(s)= 100 mL, IV Piggyback, AsDirected, PRN magnesium sulfate for IV bolus magnesium sulfate for IV bolus, 2 gram(s)= 50 mL, IV Piggyback, qDay, PRN melatonin, 3 mg= 1 tab(s), Oral, qHS, PRN Miralax Powder Packet, 17 gram(s)= 15 mL, Oral, qDay, PRN oxybutynin 15 mg/24 hr oral tablet, extended release, 15 mg= 3 tab(s), Oral, BID potassium chloride, 20 mEq= 1 tab(s), Oral, AsDirected, PRN potassium chloride, 40 mEq= 2 tab(s), Oral, AsDirected, PRN potassium chloride, 40 mEq= 2 tab(s), Oral, AsDirected, PRN potassium chloride bolus, 20 mEq= 100 mL, IV Piggyback, AsDirected, PRN sertraline, 100 mg= 1 tab(s), Oral, qDay Tamiflu, 75 mg= 1 cap(s), Oral, BID Tikosyn, 250 mcg= 1 cap(s), Oral, q12hr Toprol-XL, 100 mg= 1 tab(s), Oral, BID Tylenol, 650 mg= 2 tab(s), Oral, q4h, PRN Tylenol, 650 mg= 2 tab(s), Oral, q4h, PRN Home amLODIPine 10 mg oral tablet, 10 mg= 1 tab(s), Oral, qDay atorvastatin 20 mg oral tablet, 20 mg= 1 tab(s), Oral, qDay, Not taking Colace 100 mg oral capsule, 100 mg= 1 cap(s), Oral, BID, PRN DilTIAZem (Eqv-Cardizem CD) 240 mg/24 hours oral capsule, extended release, 240 mg= 1 cap(s), Oral,qDay docusate-senna 50 mg-8.6 mg oral tablet, 2 tab(s), Oral, qHS Eliquis 5 mg oral tablet, 5 mg= 1 tab(s), Oral, BID ferrous gluconate 324 mg (38 mg elemental iron) oral tablet, 324 mg= 1 tab(s), Oral, qDay furosemide 20 mg oral tablet, 20 mg= 1 tab(s), Oral, qDay glimepiride 4 mg oral tablet, 4 mg= 1 tab(s), Oral, BID HumaLOG 100 units/mL subcutaneous solution, Give 0-5 units/dose, Subcutaneous, TIDAC, Not taking metFORMIN 1000 mg oral tablet (IR), 1000 mg= 1 tab(s), Oral, BID Metoprolol Tartrate 100 mg oral tablet, 100 mg= 1 tab(s), Oral, BID MiraLax oral powder for reconstitution, Oral, qDay, PRN Multivitamin, 1 tab(s), Oral, qDay oxybutynin 15 mg/24 hr oral tablet, extended release, 15 mg= 1 tab(s), Oral, BID sertraline 100 mg oral tablet, 100 mg= 1 tab(s), Oral, qDay Tylenol 325 mg oral capsule, 650 mg, Oral, q4h, PRN Tylenol 325 mg oral capsule, 650 mg, Oral, q4h, PRN Vitamin D3, 50 mcg= 1 tab(s), Oral, Daily Allergies Monopril pioglitazone Social History per HPI no drugs or etoh Family History Family history is unknown Family history is non-contributory to the current situation. Immunizations pneumococcal 13-valent conjugate vaccine: 0.5 unknown unit (03/04/20) SARS-CoV-2 (COVID-19) mRNA-1273 vaccine: 50 unknown unit (03/10/21) SARS-CoV-2 (COVID-19) mRNA-1273 vaccine: 0.5 unknown unit (08/11/20) SARS-CoV-2 (COVID-19) mRNA-1273 vaccine: 0.5 unknown unit (07/14/20) Digitally Signed by JOEL LACY MD on 07/11/2023 06:23 PM [id number] Note Date of Service 07-11-2023 Chief Complaint Influenza Subjective Patient is a 73-year-old female with past medical history significant for CVA, proximal A-fib on Eliquis, hypertension, type 2 diabetes, chronic right hip fracture, heart failure preserved EF who [place] after suffering a fall at [facility]. She was admitted to cardiology service after found to be in atrial flutter with RVR and had 2 failed cardioversions. Was started on a diltiazem drip. Mentation was altered in the [place] ER was found to be febrile with UTI and pneumonia. Patient also found to be positive for influenza A. She was started on Rocephin, doxycycline and Tamiflu. Requiring supplemental oxygen for hypoxia. Neurology consulted for confusion. Imaging concerning for intertrochanteric/lesser trochanteric and subtrochanteric fractures likely subacute to chronic. Chest x-ray shows no significant interval change. X-ray of the right humerus completed today shows chronic appearing fracture in the distal humerus. Patient seen and evaluated today in the CCU. She is confused. Does not remember her fall or what any of the doctors have told her so far. Objective Vitals and Measurements T: 36.6 C (Oral) TMIN: 36.6 C (Oral) TMAX: 39.0 C (Oral) HR: 73(Monitored) RR: 24 BP: 92/58 SpO2: 91% HT: 155 cm WT: 89 kg BMI: 37.04 Intake and Output 7AM Yesterday to 7AM Today Intake and Output (Last 24 hours) Intake Oral Intake 610.00 Output Urinary Catheter Output: 2049.00 Stool Count 1.00 Total Summary Total Intake 610.00 Total Output 2049.00 Fluid Balance -1440.00 Physical Exam Constitutional: Patient is alert, disoriented. In no acute distress. Eyes: PERRLA, EOM intact. ENT: hearing grossly intact, mucous membranes moist, Respiratory: Breathing nonlabored, lungs diminished to auscultation bilaterally. Heart: Regular rate and rhythm. S1 S2 heard. GI: Bowel sounds x4 quadrants. No rebound tenderness or guarding. Neuro: speech clear. REGAN equally. memory impaired. Skin: no rashes or lesions noted. skin warm, dry and intact. Weight Dosing Weight: 89 kg (07/10/23) Medications Medications (33) Active Scheduled: (17) amLODIPine 5 mg tablet 5 mg 1 tab(s), Oral, qDay apixaban 5 mg tablet 5 mg 1 tab(s), Oral, BID atorvastatin 40 mg tablet 40 mg 1 tab(s), Oral, qDay cefTRIAXone IVP syringe 2 gram(s) 20 mL, IV Push (INT), qDay diltiazem 60 mg tablet 60 mg 1 tab(s), Oral, QID docusate-senna (Senokot S) 50 mg-8.6 mg Tablet 2 tab(s), Oral, qHS dofetilide 250 mcg capsule 250 mcg 1 cap(s), Oral, q12hr ferrous sulfate 325 mg Tablet 325 mg 1 tab(s), Oral, qDayM furosemide 40 mg/4 mL vial 40 mg 4 mL, IV Push, BID glimepiride 2 mg Tablet 4 mg 2 tab(s), Oral, BID insulin lispro 100 units/mL Soln (3 mL) Give 0-5 units/dose, Subcutaneous, TIDAC metoprolol succinate 100 mg ER tablet 100 mg 1 tab(s), Oral, BID Misc communication order 1 EA, Miscellaneous, Daily mupirocin 2% Ointment 22 Gram(s) tube 1 alfonzo, Topical, TID oseltamivir 75 mg capsule 75 mg 1 cap(s), Oral, BID oxybutynin 5 mg ER tablet 15 mg 3 tab(s), Oral, BID sertraline 100 mg tablet 100 mg 1 tab(s), Oral, qDay Continuous: (0) PRN: (16) acetaminophen 325 mg Tablet 650 mg 2 tab(s), Oral, q4h acetaminophen 325 mg Tablet 650 mg 2 tab(s), Oral, q4h albuterol - ipratropium 2.5 mg-0.5 mg/3 mL Inhal Laquita UD 3 mL, Inhalation, q4hRT dextrose 50% Solution Disp syringe 50 mL 12.5 gram(s) 25 mL, IV Push, AsDirected magnesium sulfate 4 gram(s)/100mL PMX 4 g 100 mL, IV Piggyback, AsDirected magnesium sulfate 50% (500mg/mL) 6 g 12 mL, IV Piggyback, AsDirected magnesium sulfate PMX 2 g 50 mL, IV Piggyback, AsDirected magnesium sulfate PMX 2 g 50 mL, IV Piggyback, qDay melatonin 3 mg tablet 3 mg 1 tab(s), Oral, qHS polyethylene glycol 3350 - UD packet 17 gram(s) 15 mL, Oral, qDay potassium bicarbonate-citric acid 20 mEq EFF tablet 20 mEq 1 tab(s), Oral, qDay potassium bicarbonate-citric acid 20 mEq EFF tablet 40 mEq 2 tab(s), Oral, qDay potassium chloride (PMX) 20 mEq/100 mL 20 mEq 100 mL, IV Piggyback, AsDirected potassium chloride 20 mEq ER tablet 20 mEq 1 tab(s), Oral, AsDirected potassium chloride 20 mEq ER tablet 40 mEq 2 tab(s), Oral, AsDirected potassium chloride 20 mEq ER tablet 40 mEq 2 tab(s), Oral, AsDirected Lab Results 07/11 05:14 WBC: 5.6 Hgb: 13.4 Hct: 39.6 Platelet: 193 Neutrophil %: 72.5 Glucose Level: 82 Sodium Level: 131 L Potassium Level: 3.8 BUN: 21.0 Creatinine Lvl (s): 1.06 07/10 23:57 WBC: 5.4 Hgb: 13.4 Hct: 40.2 Platelet: 195 Neutrophil %: 83.5 H Glucose Level: 132 H Sodium Level: 131 L Potassium Level: 3.9 BUN: 14.0 Creatinine Lvl (s): 0.84 Imaging Results and Diagnostics XR Humerus Minimum 2 Views Right Result Date: July 11, 2023 Verified By: KAN BRADLEY MD CLINICAL STATEMENT: IMPRESSION: 1. Chronic appearing fracture of the distal humerus.2. Degenerative changes of the shoulder and acromioclavicular joint.3. Lucency surrounding the elbow prosthesis could be representativeofloosening, infection, or particle disease. XR Chest 1 View Result Date: July 10, 2023 Verified By: FATEMEH GEORGES MD CLINICAL STATEMENT: IMPRESSION: No significant interval change. To further characterize the right humeral findings, dedicated right humeralradiographs are recommended. I have personally reviewed the images of this examination and agree with theresident's findings and interpretation. EKG EKG - Completed -- 07/10/23 21:17:00 EST Electrocardiogram (EKG) - InProcess -- 07/10/23 21:37:00 EST Electrocardiogram (EKG) - InProcess -- 07/11/23 13:30:00 EST, Post Tikosyn Assessment/Plan 1. Acute hypoxic respiratory failure 2. Influenza A 3. A-fib 4. Cystitis 5. Encephalopathy acute 6. Type 2 diabetes mellitus 7. Hyponatremia 8. Fall Acute hypoxic respiratory failure secondary to influenza A. Still requiring supplemental oxygen, was 85% on 5 L of oxygen when she does not wear oxygen chronically. Continue to wean as tolerated. Continue Tamiflu. Chest x-ray shows no significant interval change. Discontinue doxycycline. Cystitis continue Rocephin. Follow urine culture Encephalopathy due to underlying infection, neuro was consulted. CT head shows no acute abnormalityon admission. Diabetes mellitus type 2 Continue corrective scale insulin, glimepiride A1c 6.4 Hyponatremia sodium is 131, continue to monitor Management of atrial fibrillation per cardiology, currently on diltiazem and metoprolol with EP consulted. Tikosyn starting today. Status post fall-imaging concerning for intertrochanteric/lesser trochanteric and subtrochanteric fractures likely subacute to chronic. Chest x-ray shows no significant interval change. X-ray of the right humerus completed today shows chronic appearing fracture in the distal humerus. Recommend Ortho consult to comment on the Right hip. Discussed with Dr. Betts Digitally Signed by BRITT HOPKINS on 07/11/2023 01:52 PM [facility] [id number] Orthopaedic surgery Consult note Date of Service 07/11/2023 Reason for Consultation Possible acute right hip fracture History of Present Illness This is a 73-year-old female admitted for A-fib with RVR resistant to initial cardioversion attempts with past medical history status post right total elbow arthroplasty ([facility]irish, years ago), right cephalomedullary nail ([facility]ristian, years ago ) who complains of right hip and knee pain. The patient states that she has not recently sustained any injury to the right hip however it was noted on chart review that she allegedly fell recently. The patient states that she has pain in her groin and knee while bearing weight on the right side however otherwise her main complaint is her right knee pain. She denies pain of any kind or new injury to the right elbow. She denies any other new or worsening ort hopedic complaints at this time. Review of Systems Pertinent positives and negative were listed above. All other systems reviewed were negative. Physical Exam Vitals and Measurements T: 36.6 C (Oral) TMIN: 36.6 C (Oral) TMAX: 39.0 C (Oral) HR: 62(Monitored) RR: 24 BP: 92/58 SpO2: 93% HT: 155 cm WT: 89 kg BMI: 37.04 Weight Dosing Weight: 89 kg (07/10/23) General: Alert and oriented x 3 MSK: No pain with logroll bilaterally. Patient complains of minor right knee pain with straight legraise on that side but denies pain in her groin, thigh, hip region with this maneuver. She does have mild tenderness to palpation of the right trochanteric area without palpable effusion. There is noeffusion to bilateral knees. The right elbow demonstrates full flexion and approximately 120 degrees of extension without pain. There is crepitus on exam which the patient states is normal for her. Remainder of MSK exam is benign other than for scattered small skin tears of her bilateral lower extremities. Sensation is grossly intact to light touch bilaterally uppers and lowers, DP pulse is palpab le bilaterally. Lab Results 07/11 05:14 WBC: 5.6 Hgb: 13.4 Hct: 39.6 Platelet: 193 Neutrophil %: 72.5 Glucose Level: 82 Sodium Level: 131 L Potassium Level: 3.8 BUN: 21.0 Creatinine Lvl (s): 1.06 07/10 23:57 WBC: 5.4 Hgb: 13.4 Hct: 40.2 Platelet: 195 Neutrophil %: 83.5 H Glucose Level: 132 H Sodium Level: 131 L Potassium Level: 3.9 BUN: 14.0 Creatinine Lvl (s): 0.84 Imaging Results and Diagnostics X-rays of the right humerus and right hip reviewed independently by me. There is a chronic appearing fracture of the right medial condyle. Total elbow arthroplasty implant is well-fixed albeit not entirely anatomic. There is a small likely chronic appearing fracture line in the proximal femur adjacent to the cephalomedullary nail that is in place there on the right. There is robust callus formation surrounding this area. XR Humerus Minimum 2 Views Right Result Date: July 11, 2023 Verified By: KAN BRADLEY MD CLINICAL STATEMENT: IMPRESSION: 1. Chronic appearing fracture of the distal humerus.2. Degenerative changes of the shoulder and acromioclavicular joint.3. Lucency surrounding the elbow prosthesis could be representativeofloosening, infection, or particle disease. XR Chest 1 View Result Date: July 10, 2023 Verified By: FATEMEH GEORGES MD CLINICAL STATEMENT: IMPRESSION: No significant interval change. To further characterize the right humeral findings, dedicated right humeralradiographs are recommended. I have personally reviewed the images of this examination and agree with theresident's findings and interpretation. EKG EC07/11/23: ATRIAL FLUTTER LOW VOLTAGE, EXTREMITY LEADS Electronic Signature: MANDO PALENCIA MD 07/11/2023 12:08:20 Assessment/Plan A-fib Acute hypoxic respiratory failure Cystitis Encephalopathy acute Fall Hyponatremia Influenza A Pneumonia Type 2 diabetes mellitus Weakness 73-year-old female presents with subacute appearing right periprosthetic proximal femur fracture (status post right cephalomedullary nail years ago). Clinical evaluation is overall reassuring. -Weight bearing: Weightbearing as tolerated to the right lower extremity and right upper extremity.Should this the unable to be performed by the patient, recommend weightbearing as tolerated with a walker. The patient may follow-up with Dr. Lubin in 2 weeks time. -Discussed with attending There is no further orthopedic intervention indicated at this time. The orthopedics service will continue to follow the patient peripherally. Please do not hesitate to reach out or re-consult for anyadditional concerns or questions. Problem List/Past Medical History Ongoing No qualifying data Historical No qualifying data Procedure/Surgical History No qualifying data available. Medications Inpatient amLODIPine, 5 mg= 1 tab(s), Oral, qDay atorvastatin, 40 mg= 1 tab(s), Oral, qDay Bactroban Ointment/Cream (Mupirocin), 1 alfonzo, Topical, TID cefTRIAXone, 2 gram(s)= 20 mL, IV Push (INT), qDay Dextrose 50% IV Push, 12.5 gram(s)= 25 mL, IV Push, AsDirected, PRN dilTIAZem, 60 mg= 1 tab(s), Oral, QID docusate-senna 50 mg-8.6 mg oral tablet, 2 tab(s), Oral, qHS Dofetilide Pharmacy Information, 1 EA, Miscellaneous, Daily DuoNeb, 3 mL, Inhalation, q4hRT, PRN Effer-K 20 mEq oral tablet, effervescent, 20 mEq= 1 tab(s), Oral, qDay, PRN Effer-K 20 mEq oral tablet, effervescent, 40 mEq= 2 tab(s), Oral, qDay, PRN Eliquis, 5 mg= 1 tab(s), Oral, BID Feosol, 325 mg= 1 tab(s), Oral, qDayM glimepiride, 4 mg= 2 tab(s), Oral, BID HumaLOG 100 units/mL subcutaneous solution, Give 0-5 units/dose, Subcutaneous, TIDAC Lasix, 40 mg= 4 mL, IV Push, BID magnesium sulfate for IV bolus, 2 gram(s)= 50 mL, IV Piggyback, AsDirected, PRN magnesium sulfate for IV bolus, 4 gram(s)= 100 mL, IV Piggyback, AsDirected, PRN magnesium sulfate for IV bolus magnesium sulfate for IV bolus, 2 gram(s)= 50 mL, IV Piggyback, qDay, PRN melatonin, 3 mg= 1 tab(s), Oral, qHS, PRN Miralax Powder Packet, 17 gram(s)= 15 mL, Oral, qDay, PRN oxybutynin 15 mg/24 hr oral tablet, extended release, 15 mg= 3 tab(s), Oral, BID potassium chloride, 20 mEq= 1 tab(s), Oral, AsDirected, PRN potassium chloride, 40 mEq= 2 tab(s), Oral, AsDirected, PRN potassium chloride, 40 mEq= 2 tab(s), Oral, AsDirected, PRN potassium chloride bolus, 20 mEq= 100 mL, IV Piggyback, AsDirected, PRN sertraline, 100 mg= 1 tab(s), Oral, qDay Tamiflu, 75 mg= 1 cap(s), Oral, BID Tikosyn, 250 mcg= 1 cap(s), Oral, q12hr Toprol-XL, 100 mg= 1 tab(s), Oral, BID Tylenol, 650 mg= 2 tab(s), Oral, q4h, PRN Tylenol, 650 mg= 2 tab(s), Oral, q4h, PRN Home amLODIPine 10 mg oral tablet, 10 mg= 1 tab(s), Oral, qDay atorvastatin 20 mg oral tablet, 20 mg= 1 tab(s), Oral, qDay, Not taking Colace 100 mg oral capsule, 100 mg= 1 cap(s), Oral, BID, PRN DilTIAZem (Eqv-Cardizem CD) 240 mg/24 hours oral capsule, extended release, 240 mg= 1 cap(s), Oral,qDay docusate-senna 50 mg-8.6 mg oral tablet, 2 tab(s), Oral, qHS Eliquis 5 mg oral tablet, 5 mg= 1 tab(s), Oral, BID ferrous gluconate 324 mg (38 mg elemental iron) oral tablet, 324 mg= 1 tab(s), Oral, qDay furosemide 20 mg oral tablet, 20 mg= 1 tab(s), Oral, qDay glimepiride 4 mg oral tablet, 4 mg= 1 tab(s), Oral, BID HumaLOG 100 units/mL subcutaneous solution, Give 0-5 units/dose, Subcutaneous, TIDAC, Not taking metFORMIN 1000 mg oral tablet (IR), 1000 mg= 1 tab(s), Oral, BID Metoprolol Tartrate 100 mg oral tablet, 100 mg= 1 tab(s), Oral, BID MiraLax oral powder for reconstitution, Oral, qDay, PRN Multivitamin, 1 tab(s), Oral, qDay oxybutynin 15 mg/24 hr oral tablet, extended release, 15 mg= 1 tab(s), Oral, BID sertraline 100 mg oral tablet, 100 mg= 1 tab(s), Oral, qDay Tylenol 325 mg oral capsule, 650 mg, Oral, q4h, PRN Tylenol 325 mg oral capsule, 650 mg, Oral, q4h, PRN Vitamin D3, 50 mcg= 1 tab(s), Oral, Daily Allergies Monopril pioglitazone Family History Family history is unknown Immunizations pneumococcal 13-valent conjugate vaccine: 0.5 unknown unit (03/04/20) SARS-CoV-2 (COVID-19) mRNA-1273 vaccine: 50 unknown unit (03/10/21) SARS-CoV-2 (COVID-19) mRNA-1273 vaccine: 0.5 unknown unit (08/11/20) SARS-CoV-2 (COVID-19) mRNA-1273 vaccine: 0.5 unknown unit (07/14/20) Digitally Signed by JOSÉ INIGUEZ MD on 07/11/2023 04:46 PM [id number]* Exam Date Time Procedure Performing Provider Status 07/11/23 2:49 PM Echocardiogram, Adult - CV Auth (Verified) [facility] 02-26-2024 Note Date of Service 07-11-2023 Chief Complaint Influenza Subjective Patient is a 73-year-old female with past medical history significant for CVA, proximal A-fib on Eliquis, hypertension, type 2 diabetes, chronic right hip fracture, heart failure preserved EF [place] [facility] at [facility]. She was admitted to cardiology service after found to be in atrial flutter with RVR and had 2 failed cardioversions. Was started on a diltiazem drip. Mentation was altered in the [place] ER was found to be febrile with UTI and pneumonia. Patient also found to be positive for influenza A. She was started on Rocephin, doxycycline and Tamiflu. Requiring supplemental oxygen for hypoxia. Neurology consulted for confusion. Imaging concerning for intertrochanteric/lesser trochanteric and subtrochanteric fractures likely subacute to chronic. Chest x-ray shows no significant interval change. X-ray of the right humerus completed today shows chronic appearing fracture in the distal humerus. Patient seen and evaluated today in the CCU. She is confused. Does not remember her fall or what any of the doctors have told her so far. Objective Vitals and Measurements T: 36.6 C (Oral) TMIN: 36.6 C (Oral) TMAX: 39.0 C (Oral) HR: 73(Monitored) RR: 24 BP: 92/58 SpO2: 91% HT: 155 cm WT: 89 kg BMI: 37.04 Intake and Output 7AM Yesterday to 7AM Today Intake and Output (Last 24 hours) Intake Oral Intake 610.00 Output Urinary Catheter Output: 2049. Stool Count 1.00 Total Summary Total Intake 610.00 Total Output 0. Fluid Balance -1440.00 Physical Exam Constitutional: Patient is alert, disoriented. In no acute distress. Eyes: PERRLA, EOM intact. ENT: hearing grossly intact, mucous membranes moist, Respiratory: Breathing nonlabored, lungs diminished to auscultation bilaterally. Heart: Regular rate and rhythm. S1 S2 heard. GI: Bowel sounds x4 quadrants. No rebound tenderness or guarding. Neuro: speech clear. REGAN equally. memory impaired. Skin: no rashes or lesions noted. skin warm, dry and intact. Weight Dosing Weight: 89 kg (07/10/23) Medications Medications (33) Active Scheduled: (17) amLODIPine 5 mg tablet 5 mg 1 tab(s), Oral, qDay apixaban 5 mg tablet 5 mg 1 tab(s), Oral, BID atorvastatin 40 mg tablet 40 mg 1 tab(s), Oral, qDay cefTRIAXone IVP syringe 2 gram(s) 20 mL, IV Push (INT), qDay diltiazem 60 mg tablet 60 mg 1 tab(s), Oral, QID docusate-senna (Senokot S) 50 mg-8.6 mg Tablet 2 tab(s), Oral, qHS dofetilide 250 mcg capsule 250 mcg 1 cap(s), Oral, q12hr ferrous sulfate 325 mg Tablet 325 mg 1 tab(s), Oral, qDayM furosemide 40 mg/4 mL vial 40 mg 4 mL, IV Push, BID glimepiride 2 mg Tablet 4 mg 2 tab(s), Oral, BID insulin lispro 100 units/mL Soln (3 mL) Give 0-5 units/dose, Subcutaneous, TIDAC metoprolol succinate 100 mg ER tablet 100 mg 1 tab(s), Oral, BID Misc communication order 1 EA, Miscellaneous, Daily mupirocin 2% Ointment 22 Gram(s) tube 1 alfonzo, Topical, TID oseltamivir 75 mg capsule 75 mg 1 cap(s), Oral, BID oxybutynin 5 mg ER tablet 15 mg 3 tab(s), Oral, BID sertraline 100 mg tablet 100 mg 1 tab(s), Oral, qDay Continuous: (0) PRN: (16) acetaminophen 325 mg Tablet 650 mg 2 tab(s), Oral, q4h acetaminophen 325 mg Tablet 650 mg 2 tab(s), Oral, q4h albuterol - ipratropium 2.5 mg-0.5 mg/3 mL Inhal Laquita UD 3 mL, Inhalation, q4hRT dextrose 50% Solution Disp syringe 50 mL 12.5 gram(s) 25 mL, IV Push, AsDirected magnesium sulfate 4 gram(s)/100mL PMX 4 g 100 mL, IV Piggyback, AsDirected magnesium sulfate 50% (500mg/mL) 6 g 12 mL, IV Piggyback, AsDirected magnesium sulfate PMX 2 g 50 mL, IV Piggyback, AsDirected magnesium sulfate PMX 2 g 50 mL, IV Piggyback, qDay melatonin 3 mg tablet 3 mg 1 tab(s), Oral, qHS polyethylene glycol 3350 - UD packet 17 gram(s) 15 mL, Oral, qDay potassium bicarbonate-citric acid 20 mEq EFF tablet 20 mEq 1 tab(s), Oral, qDay potassium bicarbonate-citric acid 20 mEq EFF tablet 40 mEq 2 tab(s), Oral, qDay potassium chloride (PMX) 20 mEq/100 mL 20 mEq 100 mL, IV Piggyback, AsDirected potassium chloride 20 mEq ER tablet 20 mEq 1 tab(s), Oral, AsDirected potassium chloride 20 mEq ER tablet 40 mEq 2 tab(s), Oral, AsDirected potassium chloride 20 mEq ER tablet 40 mEq 2 tab(s), Oral, AsDirected Lab Results 07/11 05:14 WBC: 5.6 Hgb: 13.4 Hct: 39.6 Platelet: 193 Neutrophil %: 72.5 Glucose Level: 82 Sodium Level: 131 L Potassium Level: 3.8 BUN: 21.0 Creatinine Lvl (s): 1.06 07/10 23:57 WBC: 5.4 Hgb: 13.4 Hct: 40.2 Platelet: 195 Neutrophil %: 83.5 H Glucose Level: 132 H Sodium Level: 131 L Potassium Level: 3.9 BUN: 14.0 Creatinine Lvl (s): 0.84 Imaging Results and Diagnostics XR Humerus Minimum 2 Views Right Result Date: July 11, 2023 Verified By: KAN BRADLEY MD CLINICAL STATEMENT: IMPRESSION: 1. Chronic appearing fracture of the distal humerus.2. Degenerative changes of the shoulder and acromioclavicular joint.3. Lucency surrounding the elbow prosthesis could be representativeofloosening, infection, or particle disease. XR Chest 1 View Result Date: July 10, 2023 Verified By: FATEMEH GEORGES MD CLINICAL STATEMENT: IMPRESSION: No significant interval change. To further characterize the right humeral findings, dedicated right humeralradiographs are recommended. I have personally reviewed the images of this examination and agree with theresident's findings and interpretation. EKG EKG - Completed -- 07/10/23 21:17:00 EST Electrocardiogram (EKG) - InProcess -- 07/10/23 21:37:00 EST Electrocardiogram (EKG) - InProcess -- 07/11/23 13:30:00 EST, Post Tikosyn Assessment/Plan 1. Acute hypoxic respiratory failure 2. Influenza A 3. A-fib 4. Cystitis 5. Encephalopathy acute 6. Type 2 diabetes mellitus 7. Hyponatremia 8. Fall Acute hypoxic respiratory failure secondary to influenza A. Still requiring supplemental oxygen, was 85% on 5 L of oxygen when she does not wear oxygen chronically. Continue to wean as tolerated. Continue Tamiflu. Chest x-ray shows no significant interval change. Discontinue doxycycline. Cystitis continue Rocephin. Follow urine culture Encephalopathy due to underlying infection, neuro was consulted. CT head shows no acute abnormalityon admission. Diabetes mellitus type 2 Continue corrective scale insulin, glimepiride A1c 6.4 Hyponatremia sodium is 131, continue to monitor Management of atrial fibrillation per cardiology, currently on diltiazem and metoprolol with EP consulted. Tikosyn starting today. Status post fall-imaging concerning for intertrochanteric/lesser trochanteric and subtrochanteric fractures likely subacute to chronic. Chest x-ray shows no significant interval change. X-ray of the right humerus completed today shows chronic appearing fracture in the distal humerus. Recommend Ortho consult to comment on the Right hip. Discussed with Dr. Betts Digitally Signed by BRITT HOPKINS on 07/11/2023 01:52 PM [facility] [id number] NoteATRIAL FLUTTER WITH PREDOMINANT 4:1 AV BLOCK Electronic Signature: MANDO PALENCIA MD 07/12/2023 09:58:46[facility] History and physical note Date of Service 07/10/23 History of Present Illness Patient is a 73-year-old female with a past medical history of CVA, paroxysmal atrial fibrillation on Eliquis, hypertension, type 2 diabetes, right hip fracture on 12/22/2022, HFpEF [place] [facility] a fall at [facility]. Patient was found to be in atrial flutter with RVR and underwent cardioversion x 2 in the ED at [place] afterrate was not controlled with Dilt drip/bolus and 0.5 digoxin. Patient has a history atrial fibrillation and has been on anticoagulation. She was also found to have CHF as well as UTI. She was initially complaining of right hip pain however none currently CT of the hip showing chronic changes without any acute fracture, she did have a right hip fracture with repair on 12/22/2022 admission. She was also found to be altered and per ED records it is her baseline however after speaking with [facility] this is new. She is also febrile, found to have UTI and even possible pneumonia. She isalert and oriented x 1 and pleasantly confused. She is acute hypoxic respiratory failure in the setting of CHF and pneumonia. She denies any current pain specifically any chest pain but does endorse some shortness of breath. Denies any nausea vomiting diarrhea or cough. CT of the head was negative at [place]. Review of Systems 12 point ROS reviewed and negative unless stated above. Physical Exam Vitals and Measurements T: 39.0 C (Oral) HR: 108(Monitored) RR: 28 BP: 182/98 SpO2: 89% HT: 155 cm WT: 89 kg BMI: 37.04 Weight Dosing Weight: 89 kg (07/10/23) GENERAL: Pt is comfortable in bed. 5 L nasal cannula PSYCH: Alert and oriented x 1-2 HEENT: Sclera clear, trachea midline NEURO: No focal neurologic deficits ENDO: Thyroid is non-palpable NECK: Mild JVD irregular regular rhythm CVS: S1 & S2 audible, Regular Rate and Rhythm, No Murmurs LUNG: Diffuse crackles GI: + BS, Abdomen is Soft EXTREMITIES: +1 pitting edema SKIN: Warm & Dry Lab Results No 36 Hour Lab Data Assessment/Plan Reverse typical atrial flutter with 4:1 AV conduction Acute on chronic HFpEF 60 to 65% Acute hypoxic respiratory failure 2/2 to PNA/Flu and CHF Altered mental status likely toxic encephalopathy from UTI/infection History of paroxysmal atrial fibrillation on Eliquis Mechanical fall UTI PNA/Influenza + CRISTIAN on likely CKD Hyponatremia Hypertension Hyperlipidemia Type 2 diabetes History of right hip fracture with repair Plan -Patient failed cardioversion x 2 in [place] ED after diltiazem and 0.5 digoxin did not control rate. Currently on diltiazem drip at 20 mg/h, started on Toprol-XL 100 twice daily and weaned off IV diltiazem drip to PO 60mg QID with plan to switch back to long acting formulation. Will consult EP for ablation evaluation and further management. Will hold off on any further digoxin given CRISTIAN and CKD. Continue Eliquis for stroke prophylaxis. -Will also start her on Lasix 40 IV twice daily for diuresis, strict I's and O's, daily weight, keep mag above 2 and potassium above 4. Surface echo ordered. -For UTI/pneumonia/Flu + start her on ceftriaxone doxycycline and consulted hospitalist for management. -AMS could be 2/2 to underlying infection, CTH negative at [facility] ED. Will consult neurology for evaluation. -History of right hip surgery for fracture, CT is negative for acute fracture and she is not complaining of any right hip plain. -Continue other home medications -Continue to monitor closely Problem List/Past Medical History Ongoing No qualifying data Historical No qualifying data Procedure/Surgical History No qualifying data available. Medications Home Medications (19) Active amLODIPine 10 mg oral tablet 10 mg = 1 tab(s), Oral, qDay atorvastatin 20 mg oral tablet 20 mg = 1 tab(s), Oral, qDay Colace 100 mg oral capsule 100 mg = 1 cap(s), PRN, Oral, BID DilTIAZem (Eqv-Cardizem CD) 240 mg/24 hours oral capsule, extended release 240 mg = 1 cap(s), Oral,qDay docusate-senna 50 mg-8.6 mg oral tablet 2 tab(s), Oral, qHS Eliquis 5 mg oral tablet 5 mg = 1 tab(s), Oral, BID ferrous gluconate 324 mg (38 mg elemental iron) oral tablet 324 mg = 1 tab(s), Oral, qDay furosemide 20 mg oral tablet 20 mg = 1 tab(s), Oral, qDay glimepiride 4 mg oral tablet 4 mg = 1 tab(s), Oral, BID HumaLOG 100 units/mL subcutaneous solution Give 0-5 units/dose, Subcutaneous, TIDAC metFORMIN 1000 mg oral tablet (IR) 1,000 mg = 1 tab(s), Oral, BID Metoprolol Tartrate 100 mg oral tablet 100 mg = 1 tab(s), Oral, BID MiraLax oral powder for reconstitution , PRN, Oral, qDay Multivitamin 1 tab(s), Oral, qDay oxybutynin 15 mg/24 hr oral tablet, extended release 15 mg = 1 tab(s), Oral, BID sertraline 100 mg oral tablet 100 mg = 1 tab(s), Oral, qDay Tylenol 325 mg oral capsule 650 mg, PRN, Oral, q4h Tylenol 325 mg oral capsule 650 mg, PRN, Oral, q4h Vitamin D3 50 mcg = 1 tab(s), Oral, Daily Allergies Monopril pioglitazone Family History Family history is unknown Immunizations pneumococcal 13-valent conjugate vaccine: 0.5 unknown unit (03/04/20) SARS-CoV-2 (COVID-19) mRNA-1273 vaccine: 50 unknown unit (03/10/21) SARS-CoV-2 (COVID-19) mRNA-1273 vaccine: 0.5 unknown unit (08/11/20) SARS-CoV-2 (COVID-19) mRNA-1273 vaccine: 0.5 unknown unit (07/14/20) Code Status Code Status - Ordered -- 07/10/23 21:36:00 EST, DNRCC-Arrest Intubate & Mechanical Vent, Constant Order Digitally Signed by GUEVARA ALEXIS MD on 07/11/2023 07:56 AM [facility] [id number] Note ORIGINAL EXAMINATION: TWO XRAY VIEWS OF THE RIGHT HUMERUS 07/11/2023 12:07 pm COMPARISON: X-ray right elbow 01/21/2021 HISTORY: ORDERING SYSTEM PROVIDED HISTORY: Reason for Exam: evaluate for fracture FINDINGS: The acromioclavicular joint is maintained with moderate degenerative change. There is also degenerative change at the glenohumeral joint. And elbow prosthesis is identified. This is incompletely assessed on a nondedicated evaluation. There is lucency surrounding the ulnar component which could be access service representative of loosening or particle disease. There is a well corticated osseous fragment along the medial distal humerus which is consistent with fracture although this appears chronic in nature. Lucency is also visualized around the humeral component of the elbow prosthesis distally. Metallic densities are seen in the proximal humeral shaft and overlying the proximal ulnar shaft. IMPRESSION: 1. Chronic appearing fracture of the distal humerus. 2. Degenerative changes of the shoulder and acromioclavicular joint. 3. Lucency surrounding the elbow prosthesis could be access service representative of loosening, infection, or particle disease. Interpreted by: Kan Bradley MD Preliminary Report By: Kan Bradley MD Electronically signed By Kan Bradley MD Dictated Date: 07/11/2023 12:29:16 PM Prelim Date: 07/11/2023 12:32:10 PM Sign Date: 07/11/2023 12:32:10 PM Ordering Provider: [facility]02-26-2024 Neurology Consult note Date of Service July 11, 2023 Reason for Consultation Encephalopathy Referring Physician Dr. Zambrano History of Present Illness 76-year-old female who had a fall at her [facility] and was found to have atrial flutter with RVR, UTI, flu, CRISTIAN, and hyponatremia. Seizure was reported. On assessment she is also encephalopathic; only oriented x 1 and pleasantly confused when she is typically more cognitively intact, therefore our service is asked to assess her. I saw her today she was alert and conversational. He had presumably improved from the day prior. She was somewhat slow to respond but was aware of where she is and what the month is. Reports feeling generally weak but seems to be improved from yesterday. She denies any headaches. She cannot recall details of what happened at her facility. Reports chronic weakness in all 4 extremities. She thinks they are mildly weaker than usual but notmajorly different. She also has mechanical issues in her shoulders and elbows. Denies vision loss. Review of Systems Full ROS was deferred due to reduced insight. Focused ROS was taken for the HPI. Physical Exam Vitals and Measurements T: 36.9 C (Oral) TMIN: 36.9 C (Oral) TMAX: 39.0 C (Oral) HR: 80(Monitored) RR: 22 BP: 124/76 SpO2: 91% HT: 155 cm WT: 89 kg BMI: 37.04 Weight Dosing Weight: 89 kg (07/10/23) Neurologic Exam Mental Status: Alert, mildly slow to respond and mild incoherence Orientation: oriented to person, [facility], and month Language: normal fluency(aside from psychomotor slowing), normal simple comprehension, decreased complex comprehension Speech: non-dysarthric Cranial Nerves: Pupils: 3mm -> 2mm bilaterally Visual Cunha: full to confrontation bilaterally Fundus: not well visualized as the patient wasn't tolerating the light and having trouble fixating CN III, IV, : EOMI. No sustained nystagmus. Mild exotropia but no reproted diplopia. CN V: normal light touch and temp sensation in V1, V2, V3, bilaterally. CN VII: face symmetric at rest. Facial muscle strength intact CN VIII: auditory acuity intact to bedside testing Sensation: Light touch: intact in all 4 extremities Motor: Involuntary movements: none Strength: LUE: 4/5 proximally, 4+/5 distally (with limitations from reduced ROM/pain) RUE: 4/5 proximally, 4+/5 distally (with limitations from reduced ROM/pain) LLE: 3/5 proximally, 5/5 distally (with limitations from reduced ROM/pain) RLE: 3/5 proximally, 5/5 distally (with limitations from reduced ROM/pain) Reflexes: R L B 1 1 BR 1 1 P 1 1 Toes down down Coordination: Limited by reduced ROM/pain Lab Results 07/11 05:14 WBC: 5.6 Hgb: 13.4 Hct: 39.6 Platelet: 193 Neutrophil %: 72.5 Glucose Level: 82 Sodium Level: 131 L Potassium Level: 3.8 BUN: 21.0 Creatinine Lvl (s): 1.06 07/10 23:57 WBC: 5.4 Hgb: 13.4 Hct: 40.2 Platelet: 195 Neutrophil %: 83.5 H Glucose Level: 132 H Sodium Level: 131 L Potassium Level: 3.9 BUN: 14.0 Creatinine Lvl (s): 0.84 Imaging Results and Diagnostics XR Chest 1 View Result Date: July 10, 2023 Verified By: FATEMEH GEORGES MD CLINICAL STATEMENT: IMPRESSION: No significant interval change. To further characterize the right humeral findings, dedicated right humeralradiographs are recommended. I have personally reviewed the images of this examination and agree with theresident's findings and interpretation. Outside head CT was reportedly unrevealing. Assessment/Plan Toxic metabolic encephalopathy Due to multiple acute medical issues (infections, electrolyte derangements, etc.) Would continue treatment of her known issues and ensure she continues to improve. I do not appreciate any current indication of an alternative neurologic process occurring. Will sign off but please call if any further input/follow-up is needed. A total of 55 minutes was spent on this case (including reviewing the chart, taking an interval history, examining the patient, generating a diagnosis/plan, and discussing with the patient.) Problem List/Past Medical History Ongoing No qualifying data Historical No qualifying data Procedure/Surgical History No qualifying data available. Medications Inpatient amLODIPine, 5 mg= 1 tab(s), Oral, qDay atorvastatin, 40 mg= 1 tab(s), Oral, qDay Bactroban Ointment/Cream (Mupirocin), 1 alfonzo, Topical, TID cefTRIAXone, 2 gram(s)= 20 mL, IV Push (INT), qDay Dextrose 50% IV Push, 12.5 gram(s)= 25 mL, IV Push, AsDirected, PRN dilTIAZem, 60 mg= 1 tab(s), Oral, QID docusate-senna 50 mg-8.6 mg oral tablet, 2 tab(s), Oral, qHS Dofetilide Pharmacy Information, 1 EA, Miscellaneous, Daily DuoNeb, 3 mL, Inhalation, q4hRT, PRN Effer-K 20 mEq oral tablet, effervescent, 20 mEq= 1 tab(s), Oral, qDay, PRN Effer-K 20 mEq oral tablet, effervescent, 40 mEq= 2 tab(s), Oral, qDay, PRN Eliquis, 5 mg= 1 tab(s), Oral, BID Feosol, 325 mg= 1 tab(s), Oral, qDayM glimepiride, 4 mg= 2 tab(s), Oral, BID HumaLOG 100 units/mL subcutaneous solution, Give 0-5 units/dose, Subcutaneous, TIDAC Lasix, 40 mg= 4 mL, IV Push, BID magnesium sulfate for IV bolus, 2 gram(s)= 50 mL, IV Piggyback, AsDirected, PRN magnesium sulfate for IV bolus, 4 gram(s)= 100 mL, IV Piggyback, AsDirected, PRN magnesium sulfate for IV bolus magnesium sulfate for IV bolus, 2 gram(s)= 50 mL, IV Piggyback, qDay, PRN melatonin, 3 mg= 1 tab(s), Oral, qHS, PRN Miralax Powder Packet, 17 gram(s)= 15 mL, Oral, qDay, PRN oxybutynin 15 mg/24 hr oral tablet, extended release, 15 mg= 3 tab(s), Oral, BID potassium chloride, 20 mEq= 1 tab(s), Oral, AsDirected, PRN potassium chloride, 40 mEq= 2 tab(s), Oral, AsDirected, PRN potassium chloride, 40 mEq= 2 tab(s), Oral, AsDirected, PRN potassium chloride bolus, 20 mEq= 100 mL, IV Piggyback, AsDirected, PRN sertraline, 100 mg= 1 tab(s), Oral, qDay Tamiflu, 75 mg= 1 cap(s), Oral, BID Tikosyn, 250 mcg= 1 cap(s), Oral, q12hr Toprol-XL, 100 mg= 1 tab(s), Oral, BID Tylenol, 650 mg= 2 tab(s), Oral, q4h, PRN Tylenol, 650 mg= 2 tab(s), Oral, q4h, PRN Home amLODIPine 10 mg oral tablet, 10 mg= 1 tab(s), Oral, qDay atorvastatin 20 mg oral tablet, 20 mg= 1 tab(s), Oral, qDay, Not taking Colace 100 mg oral capsule, 100 mg= 1 cap(s), Oral, BID, PRN DilTIAZem (Eqv-Cardizem CD) 240 mg/24 hours oral capsule, extended release, 240 mg= 1 cap(s), Oral,qDay docusate-senna 50 mg-8.6 mg oral tablet, 2 tab(s), Oral, qHS Eliquis 5 mg oral tablet, 5 mg= 1 tab(s), Oral, BID ferrous gluconate 324 mg (38 mg elemental iron) oral tablet, 324 mg= 1 tab(s), Oral, qDay furosemide 20 mg oral tablet, 20 mg= 1 tab(s), Oral, qDay glimepiride 4 mg oral tablet, 4 mg= 1 tab(s), Oral, BID HumaLOG 100 units/mL subcutaneous solution, Give 0-5 units/dose, Subcutaneous, TIDAC, Not taking metFORMIN 1000 mg oral tablet (IR), 1000 mg= 1 tab(s), Oral, BID Metoprolol Tartrate 100 mg oral tablet, 100 mg= 1 tab(s), Oral, BID MiraLax oral powder for reconstitution, Oral, qDay, PRN Multivitamin, 1 tab(s), Oral, qDay oxybutynin 15 mg/24 hr oral tablet, extended release, 15 mg= 1 tab(s), Oral, BID sertraline 100 mg oral tablet, 100 mg= 1 tab(s), Oral, qDay Tylenol 325 mg oral capsule, 650 mg, Oral, q4h, PRN Tylenol 325 mg oral capsule, 650 mg, Oral, q4h, PRN Vitamin D3, 50 mcg= 1 tab(s), Oral, Daily Allergies Monopril pioglitazone Family History Family history is unknown Digitally Signed by WALE SILVERIO MD on 07/11/2023 11:41 AM [id number] Consult note Date of Service 07/10/2023 Reason for Consultation Management of UTI and pneumonia Referring Physician Dr Elena Alexis History of Present Illness This is a 73-year-old female patient with past medical history significant for CVA, paroxysmal atrial fibrillation on Eliquis, hypertension, type 2 diabetes mellitus, chronic right hip fracture from 12/22/2022, heart failure preserved EF who was transferred from [place] emergency room after suffering a fall at [facility]. Patient was found to be in atrial flutterwith RVR and had 2 failed cardioversions, and was started on a diltiazem drip. She was found to have altered mentation at [place] ER, she was febrile and found to have UTI and pneumonia. She was transferred to [facility] [place]ology services with a hospitalist consult for management of UTI and possible pneumonia. Patient is seen resting in bed in CCU, awake and alert. She is aware of herself, residence but unaware of current circumstances and acute illness and recent fall. She currently denies any chest pain,palpitations, wheezing or shortness of breath. Documented 89% saturation on 5 L supplemental oxygen. Currently denies any abdominal pain, nausea, vomiting, diarrhea. She denies any urinary irritation, urgency, burning or discharge. She currently denies pain. Data collection done by chart review, in discussion with patient and nursing staff. Review of Systems I reviewed constitutional, HEENT, cardiovascular, respiratory, GI, , skin, musculoskeletal, neurologic, hematologic, and psychiatric. All systems reviewed and are negative except as noted above in the HPI. Physical Exam Vitals and Measurements T: 39.0 C (Oral) HR: 108(Monitored) RR: 28 BP: 182/98 SpO2: 89% HT: 155 cm WT: 89 kg BMI: 37.04 Weight Dosing Weight: 89 kg (07/10/23) Physical Exam General: No acute distress. Alert and Appropriate Skin: No rash. Warm, Dry, Intact. BLE reddened lesions, multiple areas with scabs, 1-2+ edema, no drainage or warmth noted. HEENT: Head is normocephalic and atraumatic. No lesions. Pupils equal in size. Lungs: Bilaterally diminished breath sounds with no crepitation or wheeze. Unlabored Cardiovascular: Heart is irregular rhythm, S1S2, No extra-audible heart tones Abdomen: Abdomen is soft, nontender. Rounded/obese. Bowel sounds positive all four quadrants. Extremities: No clubbing, cyanosis or edema. Adequate peripheral circulation. Neurological: The patient is awake and alert to self, following simple commands, moving all extremities. Lab Results No 36 Hour Lab Data Imaging Results and Diagnostics XR Chest 1 View Result Date: July 10, 2023 Verified By: FATEMEH GEORGES MD CLINICAL STATEMENT: IMPRESSION: No significant interval change. To further characterize the right humeral findings, dedicated right humeral radiographs are recommended. I have personally reviewed the images of this examination and agree with the resident's findings and interpretation. EKG ATRIAL FLUTTER PAIRED VENTRICULAR PREMATURE COMPLEXES MARKEDLY POSTERIOR QRS AXIS LOW VOLTAGE, EXTREMITY LEADS REPOL ABNRM, SEVERE GLOBAL ISCHEMIA (LM/MVD) Assessment/Plan 1. Encephalopathy acute (+) UTI Rocephin 2. Cystitis Continue Rocephin, currently febrile, cultures pending UA showed sm. blood, nitrites and 4+bacteria 3. Acute hypoxic respiratory failure 4. Pneumonia Continue doxycycline, Rocephin Pending CXR, atypicals, cultures WBC 5.2, neutrophilic 87.2%, (-) bands, febrile 39 89% on 5 L/min supplemental oxygen 5. Type 2 diabetes mellitus Sliding scale insulin, glucose 181 Monitor for s/s of hypoglycemia, goal < 140 6. Fall 7. Weakness PT/OT when appropriate Cardiac work up to treat remainder of comorbidities: paroxysmal atrial fibrillation, HTN, CHF, includes EKG, pending lab work, Echocardiogram, Cardizem gtt, Toprol, Eliquis Neurology consulted. Pending EP consult for possible ablation vs antiarrhythmic. DVT and pain prophylaxis per primary team Labs and diagnostics as noted in HPI Thank you for requesting our participation in the care of your patient. We will continue to follow during hospitalization. Document transcribed with voice recognition and may contain typographical errors Orders: COVID/FLU/RSV PCR Screen Legionella Urine Ag MRSA (PCR) Respiratory ID Panel with COVID-19 by PCR Streptococcus Pneumoniae Urine Antig Problem List/Past Medical History Ongoing No qualifying data Historical No qualifying data Procedure/Surgical History No qualifying data available. Medications Inpatient amLODIPine, 5 mg= 1 tab(s), Oral, qDay atorvastatin, 20 mg= 1 tab(s), Oral, qDay cefTRIAXone, 2 gram(s)= 20 mL, IV Push (INT), qDay Dextrose 50% IV Push, 12.5 gram(s)= 25 mL, IV Push, AsDirected, PRN Diltiazem for IV 125 mg [15 mg/hr] + Dextrose 5% in Water 100 mL docusate-senna 50 mg-8.6 mg oral tablet, 2 tab(s), Oral, qHS doxycycline DuoNeb, 3 mL, Inhalation, q4hRT, PRN Eliquis, 5 mg= 1 tab(s), Oral, BID glimepiride, 4 mg= 2 tab(s), Oral, BID HumaLOG 100 units/mL subcutaneous solution, Give 0-5 units/dose, Subcutaneous, TIDAC Lasix, 40 mg= 4 mL, IV Push, BID magnesium sulfate for IV bolus, 2 gram(s)= 50 mL, IV Piggyback, AsDirected, PRN magnesium sulfate for IV bolus, 4 gram(s)= 100 mL, IV Piggyback, AsDirected, PRN magnesium sulfate for IV bolus melatonin, 3 mg= 1 tab(s), Oral, qHS, PRN Miralax Powder Packet, 17 gram(s)= 15 mL, Oral, qDay, PRN oxybutynin 15 mg/24 hr oral tablet, extended release, 15 mg= 3 tab(s), Oral, BID potassium chloride, 20 mEq= 1 tab(s), Oral, AsDirected, PRN potassium chloride, 40 mEq= 2 tab(s), Oral, AsDirected, PRN potassium chloride, 40 mEq= 2 tab(s), Oral, AsDirected, PRN potassium chloride bolus, 20 mEq= 100 mL, IV Piggyback, AsDirected, PRN sertraline, 100 mg= 1 tab(s), Oral, qDay Toprol-XL, 150 mg= 3 tab(s), Oral, BID Tylenol, 650 mg= 2 tab(s), Oral, q4h, PRN Home amLODIPine 10 mg oral tablet, 10 mg= 1 tab(s), Oral, qDay atorvastatin 20 mg oral tablet, 20 mg= 1 tab(s), Oral, qDay, Not taking Colace 100 mg oral capsule, 100 mg= 1 cap(s), Oral, BID, PRN DilTIAZem (Eqv-Cardizem CD) 240 mg/24 hours oral capsule, extended release, 240 mg= 1 cap(s), Oral,qDay docusate-senna 50 mg-8.6 mg oral tablet, 2 tab(s), Oral, qHS Eliquis 5 mg oral tablet, 5 mg= 1 tab(s), Oral, BID ferrous gluconate 324 mg (38 mg elemental iron) oral tablet, 324 mg= 1 tab(s), Oral, qDay furosemide 20 mg oral tablet, 20 mg= 1 tab(s), Oral, qDay glimepiride 4 mg oral tablet, 4 mg= 1 tab(s), Oral, BID HumaLOG 100 units/mL subcutaneous solution, Give 0-5 units/dose, Subcutaneous, TIDAC, Not taking metFORMIN 1000 mg oral tablet (IR), 1000 mg= 1 tab(s), Oral, BID Metoprolol Tartrate 100 mg oral tablet, 100 mg= 1 tab(s), Oral, BID MiraLax oral powder for reconstitution, Oral, qDay, PRN Multivitamin, 1 tab(s), Oral, qDay oxybutynin 15 mg/24 hr oral tablet, extended release, 15 mg= 1 tab(s), Oral, BID sertraline 100 mg oral tablet, 100 mg= 1 tab(s), Oral, qDay Tylenol 325 mg oral capsule, 650 mg, Oral, q4h, PRN Tylenol 325 mg oral capsule, 650 mg, Oral, q4h, PRN Vitamin D3, 50 mcg= 1 tab(s), Oral, Daily Allergies Monopril pioglitazone Family History Family history is unknown Immunizations pneumococcal 13-valent conjugate vaccine: 0.5 unknown unit (03/04/20) SARS-CoV-2 (COVID-19) mRNA-1273 vaccine: 50 unknown unit (03/10/21) SARS-CoV-2 (COVID-19) mRNA-1273 vaccine: 0.5 unknown unit (08/11/20) SARS-CoV-2 (COVID-19) mRNA-1273 vaccine: 0.5 unknown unit (07/14/20) Digitally Signed by PARAMJIT FRAZIER on 07/11/2023 12:00 AM [facility] [id number] Note. MICRO - Microbiology PROCEDURE: Streptococcus Pneumoniae Urine Antig [^1 *1] SOURCE: Urine, Clean Catch BODY SITE: COLLECTED DATE/TIME: 07/10/2023 23:48 EST RECEIVED DATE/TIME: 07/11/2023 00:38 EST START DATE/TIME: 07/11/2023 00:38 EST FREE TEXT SOURCE: FINAL REPORTS Final Report [] Verified Date/Time/Personnel: 07/11/2023 00:54 EST Presumptive negative for pneumococcal pneumonia, suggesting no current or recent pneumococcal infection. Infection due to Strep pneumoniae cannot be ruled out since the antigen present in the sample may be below the detection limit of the test. Interpretive Data ^1: Streptococcus Pneumoniae Urine Antig This test has not been evaluated on patients taking antibiotics for greater than 24 hours or on patients who have recently completed an antibiotic regimen. The accuracy of this test has not been proven in young children. Performing Locations *1: This test was performed at: [facility], [address] [place] [address], [facility] , [facility] ([place])07-11-2023 Note. MICRO - Microbiology PROCEDURE: Legionella Urine Ag [*1] SOURCE: Urine BODY SITE: COLLECTED DATE/TIME: 07/10/2023 23:48 EST RECEIVED DATE/TIME: 07/11/2023 00:38 EST START DATE/TIME: 07/11/2023 00:38 EST FREE TEXT SOURCE: FINAL REPORTS Final Report [] Verified Date/Time/Personnel: 07/11/2023 00:54 EST Presumptive negative for L. pneumophila serogroup 1 antigen in urine, suggesting no recent or current infection. Legionnaire's disease cannot be ruled out since other serogroups and species may also cause disease. Performing Locations *1: This test was performed at: [facility], [address] [place] [address], [id number] , [facility] ([place])07-11-2023 Respiratory therapy Hospital Progress note Respiratory Therapy Evaluation Entered On: 07/11/2023 1:01 EST Performed On: 07/11/2023 1:00 EST by Becca Pandey EDUCATIONAL PROGRAM DIRECTOR Respiratory Therapy Evaluation Pulmonary Status : Non-smoker Surgical Status : No surgeries Chest X-Ray : Clear/not ordered Breath Sounds (RT) : Decreased bilaterally Respiratory Pattern (RT) : SIMON,Irregular or RR =26-30 Cough (RT) : Strong, non-productive Respiratory Therapy Evaluation Score : 5 Level of Activity : Ambulatory with assistance Mental Status : Alert, oriented RT Assessment [Frequency/Schedule] : Q4 PRN Becca Pandey EDUCATIONAL PROGRAM DIRECTOR - 07/11/2023 1:00 EST Digitally Signed by Becca Pandey EDUCATIONAL PROGRAM DIRECTOR on 07/11/2023 01:00 AM [facility] [id number] Consult note Date of Service 07/10/2023 Reason for Consultation Management of UTI and pneumonia Referring Physician Dr Elena Alexis History of Present Illness This is a 73-year-old female patient with past medical history significant for CVA, paroxysmal atrial fibrillation on Eliquis, hypertension, type 2 diabetes mellitus, chronic right hip fracture from 12/22/2022, heart failure preserved EF who was transferred from [place] emergency room after suffering a fall at [facility]. Patient was found to be in atrial flutterwith RVR and had 2 failed cardioversions, and was started on a diltiazem drip. She was found to have altered mentation at [place] ER, she was febrile and found to have UTI and pneumonia. She was transferred to [facility] [place]ology services with a hospitalist consult for management of UTI and possible pneumonia. Patient is seen resting in bed in CCU, awake and alert. She is aware of herself, residence but unaware of current circumstances and acute illness and recent fall. She currently denies any chest pain,palpitations, wheezing or shortness of breath. Documented 89% saturation on 5 L supplemental oxygen. Currently denies any abdominal pain, nausea, vomiting, diarrhea. She denies any urinary irritation, urgency, burning or discharge. She currently denies pain. Data collection done by chart review, in discussion with patient and nursing staff. Review of Systems I reviewed constitutional, HEENT, cardiovascular, respiratory, GI, , skin, musculoskeletal, neurologic, hematologic, and psychiatric. All systems reviewed and are negative except as noted above in the HPI. Physical Exam Vitals and Measurements T: 39.0 C (Oral) HR: 108(Monitored) RR: 28 BP: 182/98 SpO2: 89% HT: 155 cm WT: 89 kg BMI: 37.04 Weight Dosing Weight: 89 kg (07/10/23) Physical Exam General: No acute distress. Alert and Appropriate Skin: No rash. Warm, Dry, Intact. BLE reddened lesions, multiple areas with scabs, 1-2+ edema, no drainage or warmth noted. HEENT: Head is normocephalic and atraumatic. No lesions. Pupils equal in size. Lungs: Bilaterally diminished breath sounds with no crepitation or wheeze. Unlabored Cardiovascular: Heart is irregular rhythm, S1S2, No extra-audible heart tones Abdomen: Abdomen is soft, nontender. Rounded/obese. Bowel sounds positive all four quadrants. Extremities: No clubbing, cyanosis or edema. Adequate peripheral circulation. Neurological: The patient is awake and alert to self, following simple commands, moving all extremities. Lab Results No 36 Hour Lab Data Imaging Results and Diagnostics XR Chest 1 View Result Date: July 10, 2023 Verified By: FATEMEH GEORGES MD CLINICAL STATEMENT: IMPRESSION: No significant interval change. To further characterize the right humeral findings, dedicated right humeral radiographs are recommended. I have personally reviewed the images of this examination and agree with the resident's findings and interpretation. EKG ATRIAL FLUTTER PAIRED VENTRICULAR PREMATURE COMPLEXES MARKEDLY POSTERIOR QRS AXIS LOW VOLTAGE, EXTREMITY LEADS REPOL ABNRM, SEVERE GLOBAL ISCHEMIA (LM/MVD) Assessment/Plan 1. Encephalopathy acute (+) UTI Rocephin 2. Cystitis Continue Rocephin, currently febrile, cultures pending UA showed sm. blood, nitrites and 4+bacteria 3. Acute hypoxic respiratory failure 4. Pneumonia Continue doxycycline, Rocephin Pending CXR, atypicals, cultures WBC 5.2, neutrophilic 87.2%, (-) bands, febrile 39 89% on 5 L/min supplemental oxygen 5. Type 2 diabetes mellitus Sliding scale insulin, glucose 181 Monitor for s/s of hypoglycemia, goal < 140 6. Fall 7. Weakness PT/OT when appropriate Cardiac work up to treat remainder of comorbidities: paroxysmal atrial fibrillation, HTN, CHF, includes EKG, pending lab work, Echocardiogram, Cardizem gtt, Toprol, Eliquis Neurology consulted. Pending EP consult for possible ablation vs antiarrhythmic. DVT and pain prophylaxis per primary team Labs and diagnostics as noted in HPI Thank you for requesting our participation in the care of your patient. We will continue to follow during hospitalization. Document transcribed with voice recognition and may contain typographical errors Orders: COVID/FLU/RSV PCR Screen Legionella Urine Ag MRSA (PCR) Respiratory ID Panel with COVID-19 by PCR Streptococcus Pneumoniae Urine Antig Problem List/Past Medical History Ongoing No qualifying data Historical No qualifying data Procedure/Surgical History No qualifying data available. Medications Inpatient amLODIPine, 5 mg= 1 tab(s), Oral, qDay atorvastatin, 20 mg= 1 tab(s), Oral, qDay cefTRIAXone, 2 gram(s)= 20 mL, IV Push (INT), qDay Dextrose 50% IV Push, 12.5 gram(s)= 25 mL, IV Push, AsDirected, PRN Diltiazem for IV 125 mg [15 mg/hr] + Dextrose 5% in Water 100 mL docusate-senna 50 mg-8.6 mg oral tablet, 2 tab(s), Oral, qHS doxycycline DuoNeb, 3 mL, Inhalation, q4hRT, PRN Eliquis, 5 mg= 1 tab(s), Oral, BID glimepiride, 4 mg= 2 tab(s), Oral, BID HumaLOG 100 units/mL subcutaneous solution, Give 0-5 units/dose, Subcutaneous, TIDAC Lasix, 40 mg= 4 mL, IV Push, BID magnesium sulfate for IV bolus, 2 gram(s)= 50 mL, IV Piggyback, AsDirected, PRN magnesium sulfate for IV bolus, 4 gram(s)= 100 mL, IV Piggyback, AsDirected, PRN magnesium sulfate for IV bolus melatonin, 3 mg= 1 tab(s), Oral, qHS, PRN Miralax Powder Packet, 17 gram(s)= 15 mL, Oral, qDay, PRN oxybutynin 15 mg/24 hr oral tablet, extended release, 15 mg= 3 tab(s), Oral, BID potassium chloride, 20 mEq= 1 tab(s), Oral, AsDirected, PRN potassium chloride, 40 mEq= 2 tab(s), Oral, AsDirected, PRN potassium chloride, 40 mEq= 2 tab(s), Oral, AsDirected, PRN potassium chloride bolus, 20 mEq= 100 mL, IV Piggyback, AsDirected, PRN sertraline, 100 mg= 1 tab(s), Oral, qDay Toprol-XL, 150 mg= 3 tab(s), Oral, BID Tylenol, 650 mg= 2 tab(s), Oral, q4h, PRN Home amLODIPine 10 mg oral tablet, 10 mg= 1 tab(s), Oral, qDay atorvastatin 20 mg oral tablet, 20 mg= 1 tab(s), Oral, qDay, Not taking Colace 100 mg oral capsule, 100 mg= 1 cap(s), Oral, BID, PRN DilTIAZem (Eqv-Cardizem CD) 240 mg/24 hours oral capsule, extended release, 240 mg= 1 cap(s), Oral,qDay docusate-senna 50 mg-8.6 mg oral tablet, 2 tab(s), Oral, qHS Eliquis 5 mg oral tablet, 5 mg= 1 tab(s), Oral, BID ferrous gluconate 324 mg (38 mg elemental iron) oral tablet, 324 mg= 1 tab(s), Oral, qDay furosemide 20 mg oral tablet, 20 mg= 1 tab(s), Oral, qDay glimepiride 4 mg oral tablet, 4 mg= 1 tab(s), Oral, BID HumaLOG 100 units/mL subcutaneous solution, Give 0-5 units/dose, Subcutaneous, TIDAC, Not taking metFORMIN 1000 mg oral tablet (IR), 1000 mg= 1 tab(s), Oral, BID Metoprolol Tartrate 100 mg oral tablet, 100 mg= 1 tab(s), Oral, BID MiraLax oral powder for reconstitution, Oral, qDay, PRN Multivitamin, 1 tab(s), Oral, qDay oxybutynin 15 mg/24 hr oral tablet, extended release, 15 mg= 1 tab(s), Oral, BID sertraline 100 mg oral tablet, 100 mg= 1 tab(s), Oral, qDay Tylenol 325 mg oral capsule, 650 mg, Oral, q4h, PRN Tylenol 325 mg oral capsule, 650 mg, Oral, q4h, PRN Vitamin D3, 50 mcg= 1 tab(s), Oral, Daily Allergies Monopril pioglitazone Family History Family history is unknown Immunizations pneumococcal 13-valent conjugate vaccine: 0.5 unknown unit (03/04/20) SARS-CoV-2 (COVID-19) mRNA-1273 vaccine: 50 unknown unit (03/10/21) SARS-CoV-2 (COVID-19) mRNA-1273 vaccine: 0.5 unknown unit (08/11/20) SARS-CoV-2 (COVID-19) mRNA-1273 vaccine: 0.5 unknown unit (07/14/20) Digitally Signed by PARAMJIT FRAZIER on 07/11/2023 12:00 AM [facility] [id number] History and physical note Date of Service 07/10/23 History of Present Illness Patient is a 73-year-old female with a past medical history of CVA, paroxysmal atrial fibrillation on Eliquis, hypertension, type 2 diabetes, right hip fracture on 12/22/2022, HFpEF who was transferredfrom [place] ED after suffering a fall [facility]. Patient was found to be in atrial flutter with RVR and underwent cardioversion x 2 in the ED at [place] afterrate was not controlled with Dilt drip/bolus and 0.5 digoxin. Patient has a history atrial fibrillation and has been on anticoagulation. She was also found to have CHF as well as UTI. She was initially complaining of right hip pain however none currently CT of the hip showing chronic changes without any acute fracture, she did have a right hip fracture with repair on 12/22/2022 admission. She was also found to be altered and per ED records it is her baseline however after speaking with [facility] this is new. She is also febrile, found to have UTI and even possible pneumonia. She isalert and oriented x 1 and pleasantly confused. She is acute hypoxic respiratory failure in the setting of CHF and pneumonia. She denies any current pain specifically any chest pain but does endorse some shortness of breath. Denies any nausea vomiting diarrhea or cough. CT of the head was negative at [place]. Review of Systems 12 point ROS reviewed and negative unless stated above. Physical Exam Vitals and Measurements T: 39.0 C (Oral) HR: 108(Monitored) RR: 28 BP: 182/98 SpO2: 89% HT: 155 cm WT: 89 kg BMI: 37.04 Weight Dosing Weight: 89 kg (07/10/23) GENERAL: Pt is comfortable in bed. 5 L nasal cannula PSYCH: Alert and oriented x 1-2 HEENT: Sclera clear, trachea midline NEURO: No focal neurologic deficits ENDO: Thyroid is non-palpable NECK: Mild JVD irregular regular rhythm CVS: S1 & S2 audible, Regular Rate and Rhythm, No Murmurs LUNG: Diffuse crackles GI: + BS, Abdomen is Soft EXTREMITIES: +1 pitting edema SKIN: Warm & Dry Lab Results No 36 Hour Lab Data Assessment/Plan Reverse typical atrial flutter with 4:1 AV conduction Acute on chronic HFpEF 60 to 65% Acute hypoxic respiratory failure 2/2 to PNA/Flu and CHF Altered mental status likely toxic encephalopathy from UTI/infection History of paroxysmal atrial fibrillation on Eliquis Mechanical fall UTI PNA/Influenza + CRISTIAN on likely CKD Hyponatremia Hypertension Hyperlipidemia Type 2 diabetes History of right hip fracture with repair Plan -Patient failed cardioversion x 2 in [place] ED after diltiazem and 0.5 digoxin did not control rate. Currently on diltiazem drip at 20 mg/h, started on Toprol- XL 100 twice daily and weaned off IV diltiazem drip to PO 60mg QID with plan to switch back to long acting formulation. Will consult EP for ablation evaluation and further management. Will hold off on any further digoxin given CRISTIAN and CKD. Continue Eliquis for stroke prophylaxis. -Will also start her on Lasix 40 IV twice daily for diuresis, strict I's and O's, daily weight, keep mag above 2 and potassium above 4. Surface echo ordered. -For UTI/pneumonia/Flu + start her on ceftriaxone doxycycline and consulted hospitalist for management. -AMS could be 2/2 to underlying infection, CTH negative at [facility] ED. Will consult neurology for evaluation. -History of right hip surgery for fracture, CT is negative for acute fracture and she is not complaining of any right hip plain. -Continue other home medications -Continue to monitor closely Problem List/Past Medical History Ongoing No qualifying data Historical No qualifying data Procedure/Surgical History No qualifying data available. Medications Home Medications (19) Active amLODIPine 10 mg oral tablet 10 mg = 1 tab(s), Oral, qDay atorvastatin 20 mg oral tablet 20 mg = 1 tab(s), Oral, qDay Colace 100 mg oral capsule 100 mg = 1 cap(s), PRN, Oral, BID DilTIAZem (Eqv-Cardizem CD) 240 mg/24 hours oral capsule, extended release 240 mg = 1 cap(s), Oral,qDay docusate-senna 50 mg-8.6 mg oral tablet 2 tab(s), Oral, qHS Eliquis 5 mg oral tablet 5 mg = 1 tab(s), Oral, BID ferrous gluconate 324 mg (38 mg elemental iron) oral tablet 324 mg = 1 tab(s), Oral, qDay furosemide 20 mg oral tablet 20 mg = 1 tab(s), Oral, qDay glimepiride 4 mg oral tablet 4 mg = 1 tab(s), Oral, BID HumaLOG 100 units/mL subcutaneous solution Give 0-5 units/dose, Subcutaneous, TIDAC metFORMIN 1000 mg oral tablet (IR) 1,000 mg = 1 tab(s), Oral, BID Metoprolol Tartrate 100 mg oral tablet 100 mg = 1 tab(s), Oral, BID MiraLax oral powder for reconstitution , PRN, Oral, qDay Multivitamin 1 tab(s), Oral, qDay oxybutynin 15 mg/24 hr oral tablet, extended release 15 mg = 1 tab(s), Oral, BID sertraline 100 mg oral tablet 100 mg = 1 tab(s), Oral, qDay Tylenol 325 mg oral capsule 650 mg, PRN, Oral, q4h Tylenol 325 mg oral capsule 650 mg, PRN, Oral, q4h Vitamin D3 50 mcg = 1 tab(s), Oral, Daily Allergies Monopril pioglitazone Family History Family history is unknown Immunizations pneumococcal 13-valent conjugate vaccine: 0.5 unknown unit (03/04/20) SARS-CoV-2 (COVID-19) mRNA-1273 vaccine: 50 unknown unit (03/10/21) SARS-CoV-2 (COVID-19) mRNA-1273 vaccine: 0.5 unknown unit (08/11/20) SARS-CoV-2 (COVID-19) mRNA-1273 vaccine: 0.5 unknown unit (07/14/20) Code Status Code Status - Ordered -- 07/10/23 21:36:00 EST, DNRCC-Arrest Intubate & Mechanical Vent, Constant Order Digitally Signed by GUEVARA ALEXIS MD on 07/11/2023 07:56 AM [id number] NoteATRIAL FLUTTER TACHYCARDIA REPOL ABNRM SUGGESTS ISCHEMIA, INFERIOR LEADS Electronic Signature: MANDO PALENCIA MD 07/12/2023 09:59:20[facility] 02-25-2024 NoteATRIAL FLUTTER LOW VOLTAGE, EXTREMITY LEADS Electronic Signature: MANDO PALENCIA MD 07/11/2023 12:08:20[facility] 02-25-2024 Note ORIGINAL EXAMINATION: ONE XRAY VIEW OF THE CHEST07/10/2023 9:34 pm COMPARISON: Same day chest x-ray at 11:43 a.m. HISTORY: ORDERING SYSTEM PROVIDED HISTORY: Reason for Exam: CHF FINDINGS: No significant interval change in the intrathoracic findings from the study at 11:43 a.m. Not previously visible on the prior study and incompletely visualized on this study is an area of increased density with subtle periosteal reaction of the right humeral diaphysis. IMPRESSION: No significant interval change. To further characterize the right humeral findings, dedicated right humeral radiographs are recommended. I have personally reviewed the images of this examination and agree with the resident's findings and interpretation. Interpreted by: Fatemeh Georges Preliminary Report By: Isaias Mendez Electronically signed By Fatemeh Georges Dictated Date: 07/10/2023 10:26:15 PM Prelim Date: 07/10/2023 10:37:06 PM Sign Date: 07/10/2023 10:41:58 PM [facility]ing [facility] Progress note Sallie from [facility] called in seeking update on Cristia. Updated that we are still working her up for injuries at this time Digitally Signed by Yazmin Staton RN on 07/10/2023 02:07 PM [facility]02-25-2024 NoteAtrial flutter Paired ventricular premature complexes Aberrant conduction of SV complex(es) Inferior infarct, age indeterminate Lateral leads are also involved Electronic Signature: MD COLLIN, CARLOS CALLOWAY 07/10/2023 18:30:19[facility] [place] 02-25-2024 NoteAtrial fibrillation Ventricular premature complex Low voltage, extremity leads RSR' in V1 or V2, probably normal variant Baseline wander in lead(s) V6 Electronic Signature: MD COLLIN, CARLOS CALLOWAY [facility]10[facility] 18:30[facility] on Cristia. Updated that we are still working her up for injuries at this time Digitally Signed by Yazmin Staton RN on 07/10/2023 02:07 PM [facility] [place]02-25-2024 Evaluation + Plan note Diagnostic Tests Pending * Urine Culture 07/10/23 [facility] 02-25-2024 Evaluation + Plan noteExtracted from: Title:History and Physical Author:RON ALEXIS MD Date:07/10/23 Reverse typical atrial flutt er with 4:1 AV conduction Acute on chronic HFpEF 60 to 65% Acute hypoxic respiratory failure 2/2 to PNA/Flu and CHF Altered mental status likely toxic encephalopathy from UTI/infection History of paroxysmal atrial fibrillation on Eliquis Mechanical fall UTI PNA/Influenza + CRISTIAN on likely CKD Hyponatremia Hypertension Hyperlipidemia Type 2 diabetes History of right hip fracture with repair Plan -Patient failed cardioversion x 2 in [place] ED after diltiazem and 0.5 digoxin did not control rate. Currently on diltiazem drip at 20 mg/h, started on Toprol-XL 100 twice daily and weaned off IV diltiazem drip to PO 60mg QID with plan to switch back to long acting formulation. Will consult EP for ablation evaluation and further management. Will hold off on any further digoxin given CRISTIAN and CKD. Continue Eliquis for stroke prophylaxis. -Will also start her on Lasix 40 IV twice daily for diuresis, strict I's and O's, daily weight, keep mag above 2 and potassium above 4. Surface echo ordered. -For UTI/pneumonia/Flu + start her on ceftriaxone doxycycline and consulted hospitalist for management. -AMS could be 2/2 to underlying infection, CTH negative at [facility] ED. Will consult neurology for evaluation. -History of right hip surgery for fracture, CT is negative for acute fracture and she is not complaining of any right hip plain. -Continue other home medications -Continue to monitor closely Addendum by ELMA SANTIAGO on July 11, 2023 12:32:20 EST I have personally seen, examined, and evaluated the patient on the encounter date. I have reviewed the resident's documentation and agree with the resident/fellow/LEAD DESIGNER/PA findings and plan as documented, unless otherwise stated. Future Appointments Appointment Date:08/18/2023 01:45:00 PM Scheduled Provider: Location:[facility] Appointment Type:[facility] Hospital Follow Up [facility] 02-25-2024 Note ORIGINAL EXAMINATION: CT of the right hip was performed without the administration of intravenous contrast. Multiplanar reformatted images are provided for review. Automated exposure control, iterative reconstruction, and/or weight based adjustment of the mA/kV was utilized to reduce the radiation dose to as low as reasonably achievable.07/10/2023 1:57 pm COMPARISON: Same day pelvis and right hip radiographs HISTORY: ORDERING SYSTEM PROVIDED HISTORY: Reason for Exam: question fx on plain films FINDINGS: Motion artifact obscures detail. The distal femur particularly is poorly evaluated due to motion. An intramedullary romeo and 2 fixation screws are noted within the right femur with associated beam hardening artifact despite metal artifact reduction acquisition. There is mild, nonspecific edema in the superficial soft tissues of the visible right lower extremity. There are multiple sites of chronic posttraumatic heterotopic calcification. There is a fracture line involving the subtrochanteric, intertrochanteric and lesser trochanteric region of the left femur. There some region of callus formation around the fracture line but the fracture line appears incompletely remodeled. 36). Mild degenerative changes seen in the right hip. There are moderate degenerative changes in the visualized knee, likely with loose intra-articular bodies IMPRESSION: The intertrochanteric/lesser trochanteric and subtrochanteric fractures are incompletely remodeled but likely subacute to chronic. If there is concern for superimposed acute fracture, three-phase bone scan may be considered. MRI may be inconclusive due to significant metal artifacts. Extensive bony remodeling of the proximal femur with heterotopic ossification. Nonspecific soft tissue edema Findings were discussed with CARLOS POLANCO at 2:54 pm on 07/10/2023. I have personally reviewed the images of this examination and agree with the resident's findings and interpretation. Interpreted by: José Mckeon MD Preliminary Report By: Isaias Mendez Electronically signed By José Mckeon MD Dictated Date: 07/10/2023 2:14:05 PM Prelim Date: 07/10/2023 2:28:28 PM Sign Date: 07/10/2023 2:58:24 PM [facility] ORIGINAL EXAMINATION: 1 XRAY VIEWS OF THE RIGHT HIP07/10/2023 11:48 am HIP UNILATERAL MIN 4V W/PELVIS RIGHT COMPARISON: 12/22/2022 HISTORY: ORDERING SYSTEM PROVIDED HISTORY: Reason for Exam: pain FINDINGS: The pelvic image is suboptimal due to underpenetration. Iliac bones are not optimally visualized. No pubic bone fracture seen. The sacrum is obscured. Degenerative changes seen of the hips. An intramedullary romeo is seen in the femur. The romeo is secured distally by a single screw in the distal metadiaphysis. There is a dynamic screw traversing the intertrochanteric zone of the femur, the romeo and neck of the femur. Chronic remodeling of the proximal femur noted. Chronic posttraumatic ossification noted near the greater trochanter. There is either a new fracture or poorly remodeled fracture involving the lesser trochanteric and subtrochanteric zone of the femur. Cortical offset laterally measures approximately 4 mm. IMPRESSION: There is either a new fracture or poorly remodeled fracture involving the lesser trochanteric zone and subtrochanteric zone of the right femur. Remodeling of the intertrochanteric zone of the right femur noted. Suboptimal exam Interpreted by: José Mckeon MD Preliminary Report By: José Mckeon MD Electronically signed By José Mckeon MD Dictated Date: 07/10/2023 11:53:57 AM Prelim Date: 07/10/2023 11:57:05 AM Sign Date: 07/10/2023 11:57:05 AM [facility] ORIGINAL EXAMINATION: ONE XRAY VIEW OF THE CHEST07/10/2023 11:47 am CHEST ONE VIEW AP/PA COMPARISON: 12/24/2022 HISTORY: ORDERING SYSTEM PROVIDED HISTORY: Reason for Exam: Chest Pain FINDINGS: Study is portable and expiratory. There is hypoventilatory change in the lower lungs. Heart size and vascularity are within normal limits. The lungs are clear of focal consolidation. No effusion, pneumothorax, or acute osseous abnormality. IMPRESSION: No visible acute process Interpreted by: Adriel Box MD Preliminary Report By: Adriel Box MD Electronically signed By Adriel Box MD Dictated Date: 07/10/2023 11:51:15 AM Prelim Date: 07/10/2023 11:51:57 AM Sign Date: 07/10/2023 11:51:57 AM [facility] Note ORIGINAL EXAMINATION: CT OF THE CERVICAL SPINE WITHOUT CONTRAST 07/10/2023 11:46 am TECHNIQUE: CT of the cervical spine was performed without the administration of intravenous contrast. Multiplanar reformatted images are provided for review. Automated exposure control, iterative reconstruction, and/or weight based adjustment of the mA/kV was utilized to reduce the radiation dose to as low as reasonably achievable. COMPARISON: None. HISTORY: ORDERING SYSTEM PROVIDED HISTORY: Reason for Exam: fall INJURY FINDINGS: Mild anterolisthesis seen of C7 on T1. An anterior fusion seen from C3 through C7. There appears to be a chronic fusion of the associated intervertebral disc spaces at the surgical levels. Multilevel facet and uncovertebral joint arthrosis visualized. No acute fractures are identified. Significant multilevel bony foraminal stenosis visualized. Mild areas of canal effacement. Atherosclerosis seen of the cervical vasculature. The visualized lung apices appear clear. IMPRESSION: Extensive surgical changes with anterior fusion from C3 through C7. Degenerative changes with significant multifocal bony foraminal stenosis. There is mild anterolisthesis of C7 on T1 No visible fractures Interpreted by: José Mckeon MD Preliminary Report By: José Mckeon MD Electronically signed By José Mckeon MD Dictated Date: 07/10/2023 11:48:31 AM Prelim Date: 07/10/2023 11:51:46 AM Sign Date: 07/10/2023 11:51:46 AM Ordering Provider: CARLOS [facility]02-25-2024 Note ORIGINAL EXAMINATION: CT OF THE HEAD WITHOUT CONTRAST 07/10/2023 11:45 am TECHNIQUE: CT of the head was performed without the administration of intravenous contrast. Automated exposure control, iterative reconstruction, and/or weight based adjustment of the mA/kV was utilized to reduce the radiation dose to as low as reasonably achievable. COMPARISON: 03/27/2020 HISTORY: ORDERING SYSTEM PROVIDED HISTORY: Reason for Exam: INJURY FINDINGS: BRAIN/VENTRICLES: There is no acute intracranial hemorrhage, mass effect or midline shift. No abnormal extra-axial fluid collection. The soliz-white differentiation is maintained without evidence of an acute infarct. There is no evidence of hydrocephalus. There is atrophy and microangiopathic change. There is extensive calcification along the midline falx. ORBITS: The visualized portion of the orbits demonstrate no acute abnormality. SINUSES: There is severe mucosal thickening in the bilateral maxillary and ethmoid sinuses. No air-fluid levels. SOFT TISSUES/SKULL: No acute abnormality of the visualized skull or soft tissues. IMPRESSION: No acute intracranial abnormality. Severe paranasal sinus disease which is new from the prior study and may be acute. Interpreted by: Adriel Box MD Preliminary Report By: Adriel Box MD Electronically signed By Adriel Box MD Dictated Date: 07/10/2023 11:48:13 AM Prelim Date: 07/10/2023 11:49:26 AM Sign Date: 07/10/2023 11:49:26 AM Ordering Provider: CARLOS [facility]02-25-2024 NoteATRIAL FIBRILLATION Prolonged DC interval Low voltage, extremity leads Abnormal R-wave progression, late transition ST depr, consider ischemia, inferior leads Electronic Signature: MD COLLIN, CARLOS CALLOWAY [facility]/10/2023 [facility]11[facility] Discharge summary Author Sebastian Sesay [facility] April 07, 2023 4:11pm Note Date/Time April 07, 2023 2:44pm [facility] Medical Records Department [address] [place] [address] Emergency Department Summary 04/07/23 MR#: [id number] Acct: [id number] Name: JOSELINE ELLIS Rep #:[id number] : 1950 73 From: Sebastian Washburn PCP: Dr. Bernie Reagan MD Status:R EG ER Location: ED HPI History of Present Illness Chief Complaint: Palpitations [facility] Medical History Abnormal mammogram of right breast Abscess of right middle finger Acute kidney injury Acute on chronic heart failure Alcohol use Anemia Anxiety Anxiety and depression Arthritis Atrial fib/flutter, transient Atrial fibrillation Back pain Bacteremia Bilateral leg ulcer Breast lump Burn injury of skin of finger Cardiology follow-up encounter Chronic anticoagulation Chronic back pain Chronic cough CKD (chronic kidney disease) COVID-19 vaccine series completed CPAP (continuous positive airway pressure) dependence CVA (cerebral vascular accident) Depression Depression with anxiety Diabetes mellitus Dietary restriction DKA (diabetic ketoacidoses) Elevated brain natriuretic peptide (BNP) level Essential hypertension Finger infection Flu vaccine need Former smoker Health care maintenance History of cerebrovascular accident History of echocardiogram History of edema History of stress test History of UTI Hyperlipidemia Hypertension Intertrigo Irregular heartbeat 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 MRSA infection 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 without evidence of necrosis Non-rheumatic mitral valve stenosis Nonrheumatic aortic (valve) stenosis Osteoarthritis Osteomyelitis of finger of right hand Osteoporosis Overactive bladder Pancreatitis Paroxysmal A-fib Paroxysmal atrial fibrillation Paroxysmal atrial fibrillation with RVR Post-menopausal Preoperative evaluation to rule out surgical contraindication Stage 3b chronic kidney disease (CKD) Subtherapeutic international normalized ratio (INR) Tachycardia Urinary incontinence, overflow Venous insufficiency Vision problems Walker as ambulation aid Weakness Home Medications acetaminophen 325 mg capsule 650 mg PO TID Pain 12/02/21 [History Last Taken 07/08/22] amlodipine 10 mg tablet 10 mg PO DAILY BP #90 tabs 09/07/22 [Rx Last Taken Unknown] ascorbic acid (vitamin C) 500 mg tablet (Vitamin C) 500 mg PO DAILY vitamin #90 tabs 09/07/22 [Rx Last Taken Unknown] cholecalciferol (vitamin D3) 50 mcg (2,000 unit) capsule 50 mcg PO DAILY vitamin#90 caps 09/07/22 [Rx Last Taken Unknown] ferrous sulfate 325 mg (65 mg iron) tablet 325 mg PO DAILY Supplement #90 tabs 09/07/22 [Rx Last Taken Unknown] metformin 1,000 mg tablet 1,000 mg PO BID DM #180 tabs 09/07/22 [Rx Last Taken Unknown] multivitamin 1 tab PO DAILY SUPPLEMENT #90 tabs 09/07/22 [Rx Last Taken Unknown] oxybutynin chloride 15 mg tablet,extended release 24 hr 15 mg PO BID bladder #180 tabs 09/07/22 [Rx Last Taken Unknown] sertraline 100 mg tablet (Zoloft) 100 mg PO DAILY anxiety #90 tabs 09/07/22 [Rx Last Taken Unknown] diltiazem HCl 240 mg capsule,extended release 24 hr (Cardizem CD) 240 mg PO DAILY heart 09/09/22 [History Last Taken Unknown] WOUND CARE #1 ea 10/06/22 [Rx Last Taken Unknown] apixaban 5 mg tablet 5 mg PO BID blood thinner #180 tabs 10/15/22 [Rx Last Taken Unknown] metoprolol tartrate 100 mg tablet 100 mg PO BID #60 tabs 11/18/22 [Rx Last Taken Unknown] furosemide 20 mg tablet 20 mg PO DAILY #90 tabs 11/22/22 [Rx Last Taken Unknown] glimepiride 4 mg tablet 4 mg PO DAILY dm 04/07/23 [History Last Taken Unknown] Allergy/AdvReac Type Severity Reaction Status Date / Time fosinopril [From Monopril] Allergy Unknown Other Verified 04/07/23 14:36 pioglitazone AdvReac Other Verified 04/07/23 14:36 Family History Father Diabetes High cholesterol Heart disease Melanoma Hypertension Mother Heart disease Brother AIDS (acquired immune deficiency syndrome) Surgical History History of amputation of finger of right hand History of back surgery History of back surgery History of carpal tunnel release History of carpal tunnel release History of hand surgery History of hysterectomy History of hysterectomy History of left elbow replacement History of left elbow replacement History of surgical amputation of finger of right hand Hx of colonoscopy S/P hysterectomy S/P ORIF (open reduction internal fixation) fracture Status post surgical amputation of finger of right hand Social History household members: none Smoking Status: Former smoker how long ago did patient quit smokin years ago alcohol intake: current alcohol intake frequency: holidays/special occasions only substance use type: does not use what type of physical activity do you participate in: other details: aquasize EXAM Physical Exam Const Vital Signs: 04/07/23 14:37 04/07/23 14:41 04/07/23 15:02 Temperature 98.7 F Temperature Source Oral Pulse Rate 70 Respiratory Rate 25 H Respiratory Effort Normal Non-Labored Blood Pressure 90/59 L Blood Pressure Mean 69 Pulse Ox 93 91 Oxygen Delivery Method Room Air Room Air 04/07/23 15:02 04/07/23 16:04 Temperature Temperature Source Pulse Rate 74 69 Respiratory Rate 27 H 30 H Respiratory Effort Blood Pressure 113/80 136/75 H Blood Pressure Mean 91 95 Pulse Ox 91 94 Oxygen Delivery Method Room Air MDM MDM MDM Narrative Medical decision making narrative: HISTORY OF PRESENT ILLNESS: 73-year-old female here with concern for palpitations. Per nursing facility patient had rapid heart rate in the setting of A-fib. Patient states she feels fine has no complaints is not for lightheaded. She denies any chest pain shortness of breath, lightheadedness. No bleeding diathesis. No vomiting or nausea. No abdominal pain. No focal weakness. States has been compliant with all of her medicines including her blood thinner. REVIEW OF SYSTEMS: Pertinent positives: Palpitations Pertinent negatives: Chest pain, shortness of breath, lightheadedness, bleeding diathesis, vomiting, nausea PHYSICAL EXAM: Nursing triage notes reviewed, Vital signs reviewed Constitutional: please see mdm HENT: MMM Eyes: Pupils equal round and reactive to light, Extraocular muscles intact Neck: No stridor, no JVD, full neck ROM Lungs: Clear to auscultation, No wheezing or rales. No increased work of breathing, no conversational dyspnea, no accessory muscle use, no nasal flaring. No respiratory distress noted Heart: Regular rate and rhythm, No murmurs, No rubs and No gallops, 2+ distal pulses (radial, femoral, posterior tibial) in all extremities Abdomen: Soft, there is no tenderness, rigidity, rebound or guarding, no obviousperitoneal signs, no palpable pulsatile abdominal masses, no auscultated abdominal bruit : No CVAT Extremities: No edema Neuro: No focal neurological deficits, cranial nerves II through XII intact, 5/5strength in all extremities. Intact sensation to light touch in all extremities,2+ reflexes bilateral patella tendons. Normal gait. No ataxia. Skin: No rash or lesions noted MEDICAL DECISION MAKING: Chief Complaint: Palpitations External records reviewed: Prior ED records reviewed. Similar visit in July 2022 Factors affecting care: Atrial fibrillation, type 2 diabetes, hyperlipidemia, hypertension Social determinants of health: n elderly, halfway resident History obtained from others: none Consults: none MDM Narrative: Patient was initially hypotensive with a rate within normal limits, she is afebrile. Exam without focal cardiopulmonary maladies. After fluids patient blood pressure improved. I considered the following differential diagnosis: A-fib with RVR, electrolyte disturbance, anemia, myocardial ischemia ALL IMAGES (IF OBTAINED) HAVE BEEN PERSONALLY REVIEWED AND INTERPRETED BY MYSELF. EKG with rate controlled A-fib, normal axis, normal intervals, no STEMI CBC without leukocytosis, mild anemia, no thrombocytopenia BMP without evidence of significant electrolyte abnormalities, no anion gap, no acute kidney injury. Noted CKD. Troponin is negative, no evidence of myocardial ischemia I have personally reviewed the patient's chest x-ray. Chest x-ray shows no evidence of obvious pneumonia. Per radiologist read there is concern for left basilar infiltrate however patient no fever, no cough no leukocytosis, no signs of infectious etiology do not suspect patient has pneumonia at this time. The synthesis of the patient's labs images, vital sign assessment, history and physical exam are consistent with likely dehydration. I encouraged increased oral fluid intake. Patient was given 1 L normal saline with improvement in blood pressure. She is appropriate discharge back to halfway. The patient and/or family, caregivers express understanding. The patient and/orfamily, caregivers agrees with the plan. Shared decision making: I will have a discussion with the patient and or visitors regarding risk/benefits of further testing or admission. They will be made aware of of the risk/benefits inherent in this decision they will be given the opportunity to voice understanding. Total critical care time today provided was at least 0 minutes. This excludes separately billable procedures. Critical care time (if documented) is secondary to the patient having high probability of clinically significant/life threatening deterioration in the patient's condition which required my urgent intervention. Impression: 1. Hypotension 2. History of A-fib 3. History of CKD 4. Dehydration Dispo: Discharge back to nursing facility Lab Data Attestation: I reviewed the patient's lab results. Labs: Laboratory Results - last 24 hr 04/07/23 14:55 WBC 6.4 RBC 4.27 Hgb 11.7 L Hct 37.5 MCV 87.8 MCH 27.4 MCHC 31.2 L RDW Std Deviation 51.4 H RDW Coeff of Zee 15.9 H Plt Count 213 MPV 10.0 Immature Gran % (Auto) 0.300 Neut % (Auto) 75.5 H Lymph % (Auto) 11.9 L [place] % (Auto) 11.2 H Eos % (Auto) 0.8 Baso % (Auto) 0.3 Absolute Neuts (auto) 4.8 Absolute Lymphs (auto) 0.76 L Nucleated RBC % 0 Sodium 136 Potassium 4.4 Chloride 107 Carbon Dioxide 21.0 Anion Gap 8 BUN 31 H Creatinine 1.27 H Estim Creat Clear Calc 30.66 Est GFR (MDRD) Af Amer 53 L Est GFR (MDRD) Non-Af 44 L BUN/Creatinine Ratio 24.4 H Glucose 217 H Calcium 9.2 Troponin I High Sens 23 Radiography Diagnostic Testing: Clinical Impression(s) from Imaging Studies Chest X-Ray 04/07/23 15:05 IMPRESSION: Retrocardiac infiltrate in the left lung base suspected without effusion Right basilar atelectasis Follow-up recommended to assure resolution Electronically Signed: Pranay Navas MD at 15:23 EST Reading Location ID and State: [facility] / [place] , Service support , Discharge Plan Triage Chief Complaint: Palpitations ED Provider: Sebastian Sesay Dx/Rx/DC Orders Instructions: ED AFIB, ED Low Blood Pressure, All Causes, ED Palpitations Prescriptions: No Action acetaminophen 325 mg capsule 650 mg PO TID diltiazem HCl [Cardizem CD] 240 mg capsule,extended release 24hr 240 mg PO DAILY glimepiride 4 mg tablet 4 mg PO DAILY amlodipine 10 mg tablet 10 mg PO DAILY Qty: 90 3RF ascorbic acid (vitamin C) [Vitamin C] 500 mg tablet 500 mg PO DAILY Qty: 90 3RF cholecalciferol (vitamin D3) 50 mcg (2,000 unit) capsule 50 mcg PO DAILY Qty: 90 3RF ferrous sulfate 325 mg (65 mg iron) tablet 325 mg PO DAILY Qty: 90 3RF metformin 1,000 mg tablet 1,000 mg PO BID Qty: 180 3RF multivitamin Tablet 1 tab PO DAILY Qty: 90 3RF oxybutynin chloride 15 mg tablet extended release 24hr 15 mg PO BID Qty: 180 1RF sertraline [Zoloft] 100 mg tablet 100 mg PO DAILY Qty: 90 3RF (DME) WOUND CARE See Rx Instructions .Route .MEDSUPPLY Qty: 1 0RF Rx Instructions: cleanse wound, apply moist silvercel and wrap with gauze apixaban 5 mg tablet 5 mg PO BID Qty: 180 3RF metoprolol tartrate 100 mg tablet 100 mg PO BID Qty: 60 11RF furosemide 20 mg tablet 20 mg PO DAILY Qty: 90 2RF Primary Care Provider: Bernie Reagan Referrals: Bernie Reagan MD [Primary Care Provider] - Activity Restrictions/Additional Instructions: Thank you for trusting us with your care today! Please take Tylenol (2 pills, 650 mg), ibuprofen (2 pills, 400 mg) every 6 hoursas needed for pain and fever control. Please increase your oral fluid intake. Please return to the emergency department if your symptoms change or worsen. Specifically if you develop palpitations, chest pain, you lose consciousness, develop shortness of breath, if your symptoms change or worsen in any way. Please follow with your primary care physician for further outpatient evaluationand management. Disposition Disposition: Home, Self Care What to do if you have Problems For any increased pain, shortness of breath, bleeding, nausea or vomiting, chestpain, or any unexpected problems, contact your Primary Care Provider. Call [facility] ([phone]) or report to the closest Emergency Room. Call 911 if necessary. 04/07/23 1611 <Electronically signed by Sebastian Sesay DO> Cosigner Signature (if applicable): CC: Dr. Bernie Reagan MD ~ Signed [facility] Work Phone: [phone] Note Discharge Instructions Thank you for allowing [facility] to assist you with your healthcare needs. The following is importantdischarge information regarding your hospital visit. Your Care Team BERNIE REAGAN MD Your Diagnosis Acute blood loss anemia Acute hypoxemic respiratory failure Atrial fibrillation History of CVA in adulthood HTN (hypertension) Intertrochanteric fracture of right hip Type 2 diabetes mellitus What to do next Follow Up Appointments Follow Up with JONH LUBIN DO, Orthopedic When 01/11/2023 02:00 PM EDT Why: PLEASE ARRIVE 15 MINUTES EARLY Where: [address] [place] [address]- Follow Up with [facility] [phone] When Within 1-2 days Follow Up with BERNIE REAGAN MD When Within 2-4 days Where: [address] [place] [address]- [phone] The Following Activity and Diet Have Been Ordered for You Transfer of Care Activity - Ordered -- Other, Nonweightbearing to the right lower extremity, 12/28/22 12:29:00 EDT Transfer of Care Diet - Ordered -- Type of Diet: Regular Diet, Calories Permitted: 1800 kcal, 12/28/22 12:29:00 EDT The Following Equipment Has Been Ordered for You Discharge Home Equipment Discharge Wound Care - Ordered -- Aquacel dressings to remain in place minimum 7 days. Reapply sterile dressing daily if needed after until incision dry. Ok to shower. Do not soak/suberge surgical site in water for extended periods of time., 12/23/22 15:48:00 EDT The Following Treatments Have Been Ordered for You Discharge Labs Transfer of Care Labwork - Ordered -- CBC/BMP, Anemia/ Diuretic management, Results Notify to: BERNIE REAGAN MD Results Notify to: Covering provider at [facility], 2-4 days, 12/28/22 12:29:00 EDT Discharge Radiology No qualifying data available. Other Therapies Transfer of Care OT - Ordered -- Reason for therapy: Intertrochanteric fracture of right hip, 12/28/22 12:29:00 EDT Transfer of Care PT - Ordered -- Reason for therapy: Intertrochanteric fracture of right hip, 12/28/22 12:29:00 EDT Post Acute Orders Transfer of Care Admission Level of Care - Ordered -- Level of Care SNF, 12/28/22 13:48:09 EDT Transfer of Care Code Status - Ordered -- Full Code, Constant Order Transfer of Care Communication Order - Ordered -- Expect less than 30 day stay., 12/28/22 13:48:09 EDT Transfer of Care Labwork - Ordered -- CBC/BMP, Anemia/ Diuretic management, Results Notify to: BERNIE REAGAN MD Results Notify to: Covering provider at [facility], 2-4 days, 12/28/22 12:29:00 EDT Transfer of Care Orders Electronically Signed By - Ordered -- 12/28/22 12:29:00 EDT, ROSARIO PENA DO Transfer of Care Prognosis - Ordered -- Good, Patient Aware: Yes Transfer of Care Rehab Potential - Ordered -- Rehab potential good, 12/28/22 12:29:30 EDT Someone Will Contact You Regarding These Home Health Referrals No home referrals have been ordered for you. No one will call you. Allergies Monopril pioglitazone Medications Please ask your primary doctor or pharmacist before taking any other medication not listed, including over the counter drugs, herbal medications, vitamins and or supplements as they may interact withyour home medications. What How Much When Why Instructions Last Dose New docusate (Colace 100 mg oral capsule) 1 cap by mouth Two (2) times a day as needed for Constipation New docusate-senna (docusate-senna 50 mg-8.6 mg oral tablet) 2 tab(s) by mouth Daily at bedtime New insulin lispro (HumaLOG) (HumaLOG 100 units/ mL subcutaneous solution) Give 0-5 units/dose Subcutaneous Three (3) times a day before meals New polyethylene glycol 3350 (MiraLax oral powder for reconstitution) by mouth Once a day as needed for Constipation Changed acetaminophen (Tylenol 325 mg oral capsule) 650 Milligram by mouth Every 4 hours as needed for TEMP greater than 38.6 degrees Celsius Changed acetaminophen (Tylenol 325 mg oral capsule) 650 Milligram by mouth Every 4 hours as needed for Pain, scale 1-3 Unchanged acetaminophen-hydrocodone (Upper Tract 325- 5 mg oral tablet) 1 tab(s) by mouth Every 6 hours as needed for Pain Post-op pain Intertrochanteric fracture of right hip Duration: 7 Days Printed Prescription Unchanged amLODIPine (amLODIPine 10 mg oral tablet) 1 tab(s) by mouth Once a day Unchanged apixaban (Eliquis 5 mg oral tablet) 1 tab(s) by mouth Two (2) times a day Unchanged atorvastatin (atorvastatin 20 mg oral tablet) 1 tab(s) by mouth Once a day Unchanged dilTIAZem (DilTIAZem (Eqv-Cardizem CD) 240 mg/ 24 hours oral capsule, extended release) 1 cap by mouth Once a day Unchanged furosemide (furosemide 20 mg oral tablet) 1 tab(s) by mouth Once a day Unchanged glimepiride (glimepiride 4 mg oral tablet) 1 tab(s) by mouth Two (2) times a day Unchanged metFORMIN (metFORMIN 1000 mg oral tablet (IR)) 1 tab(s) by mouth Two (2) times a day Unchanged metoprolol (Metoprolol Tartrate 100 mg oral tablet) 1 tab(s) by mouth Two (2) times a day Unchanged multivitamin (Multivitamin) 1 tab(s) by mouth Once a day Unchanged oxybutynin (oxybutynin 15 mg/ 24 hr oral tablet, extended release) 1 tab(s) by mouth Two (2) times a day Unchanged sertraline (sertraline 100 mg oral tablet) 1 tab(s) by mouth Once a day Please take this list to your next doctor s visit. Bring all medications you take, including over the counter medications, herbals and other supplements with you to your doctor s visit. Patients and families are reminded to discard old lists and to update any records with all medication providers or retail pharmacies. Additional Information VACCINATE! IT SAVES LIVES! Members of the community who have not yet received the COVID-19 vaccine and would like to receive it can visit one of [facility] vaccine clinics. There are many vaccine clinic locations within the [facility]. For locations and available times, please visit [email or web address] It is important to note that some COVID mobile vaccine clinics are held outdoors and may be canceled in rainy or stormy conditions. To learn more about pediatric vaccinations (ages 5-11), we invite you to visit the [employer] [facility] webpage. [email or web address] learn more about the COVID-19 vaccine, we invite you to visit the CDC website for a list of frequently asked questions.https://www.cdc.gov/coronavirus/2019-ncov/vaccines/faq.html [employer] Patient Portal Access Instructions: Stay connected with your healthcare team and access your personal medical information anytime with the [employer] Patient Portal. Please follow the directions below to create your [employer] account: 1.Access the email account you provided upon registration to the hospital/physician office.2.Look for an invitation email from [facility].3.Open the email and access the invitation link: AcceptInvitation to [facility].4.Fill in the required cunha to create your account. To access your account, visit [employer]. Click the blue button labeled Access Patient Portal and then log in with the username and password that you created in the steps above. You will be able to view your test results, lab results, a summary of your visits, upcoming appointments and more. There is also a convenient messaging option where you can send secure messages to your p rovider. In addition, you will have the ability to download any documents or summaries to your computer and/or send the information securely to a physician. Remember that your healthcare information is confidential, so carefully consider who you will allowto register on the [employer] Patient Portal for access to your information. You can also access the [facility] Patient Portal on the [facility] alfonzo. Simply click on Patient Portal and then log into your account. If you would like to receive a full copy of your medical records, please contact the [facility] Medical Records Department by calling [phone], Tuesday through Tuesday between 8 a.m. and 4:30 p.m. HOW TO SAFELY DISPOSE OF PRESCRIPTION MEDICATIONS Please use one of the following methods to safely dispose of your unused medications. 1.Use a drug disposal kit: the drug disposal pouch allows you to safely discard your old and unuseddrugs. Ask your nurse to give you one when you are discharged.2.Visit a local take-back location: Many local pharmacies and police departments have programs that collect old and unwanted prescriptiondrugs. Call your local pharmacy or go to http://Kmsocial.[employer]/7X7Do9d to find one close to you.3.Make use of household items: Use cat litter or old coffee grounds to dispose medications if other options arenot available. Mix your drugs with these household products, seal them in an airtight container andthrow it into the garbage. Call [facility]: [phone] to be sure your drugs can be disposed of in this way. Some medicines may require a different approach.4.Never flush your medications down the toilet. IF YOU HAVE BEEN PRESCRIBED AN OPIOID FOR PAIN If you have been prescribed an opioid (such as hydrocodone, oxycodone or morphine), it is critical to understand the possible side effects and risks of opioid pain medications. Even when taken as directed, opioids can have several side effects including: Tolerance, meaning you might need to take more of a medication for the same pain relief. Nausea, vomiting and/or constipation. Sleepiness, dizziness, dry mouth, confusion, depression or itching. Physical dependence, meaning you have withdrawal symptoms when a medication is stopped, can develop within a few days. KNOW YOUR RESPONSIBILITIES It is important to know exactly how much and how often to take the opioid pain medications you are prescribed. Never take opioids in higher amounts or more often than prescribed. Do not combine opioids with alcohol or other drugs that cause drowsiness, such as benzodiazepines, also known as benzos, including diazepam and alprazolam, muscle relaxants or sleep aids. Never sell or share prescription opioids. This is illegal. Store opioids in a secure place and out of reach of others (including children, family, friends and visitors). The last page of this document has been signed and retained as a CHART COPY. Signatures Patient Education Materials Medication Leaflets My discharge plan and instructions have been reviewed and explained to me and I,JOSELINE ELLIS understand my current condition and have read and understand these discharge instructions. I have received a written copy of the plan/instructions. If I have questions, I am aware that I should contact my doctor. 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: Date/Time: Relationship to Patient: Witness Name/Signature: [id number] Note Discharge Instructions Thank you for allowing [facility] to assist you with your healthcare needs. The following is importantdischarge information regarding your hospital visit. Your Care Team BERNIE REAGAN MD Your Diagnosis Acute blood loss anemia Acute hypoxemic respiratory failure Atrial fibrillation History of CVA in adulthood HTN (hypertension) Intertrochanteric fracture of right hip Type 2 diabetes mellitus What to do next Follow Up Appointments Follow Up with JONH LUBIN DO, Orthopedic When 01/11/2023 02:00 PM EDT Why: PLEASE ARRIVE 15 MINUTES EARLY Where: [address] [place] [address]- Follow Up with [facility] [phone] When Within 1-2 days Follow Up with BERNIE REAGAN MD When Within 2-4 days Where: [address] [place] [address]- [phone] The Following Activity and Diet Have Been Ordered for You Transfer of Care Activity - Ordered -- Other, Nonweightbearing to the right lower extremity, 12/28/22 12:29:00 EDT Transfer of Care Diet - Ordered -- Type of Diet: Regular Diet, Calories Permitted: 1800 kcal, 12/28/22 12:29:00 EDT The Following Equipment Has Been Ordered for You Discharge Home Equipment Discharge Wound Care - Ordered -- Aquacel dressings to remain in place minimum 7 days. Reapply sterile dressing daily if needed after until incision dry. Ok to shower. Do not soak/suberge surgical site in water for extended periods of time., 12/23/22 15:48:00 EDT The Following Treatments Have Been Ordered for You Discharge Labs Transfer of Care Labwork - Ordered -- CBC/BMP, Anemia/ Diuretic management, Results Notify to: BERNIE REAGAN MD Results Notify to: Covering provider at [facility], 2-4 days, 12/28/22 12:29:00 EDT Discharge Radiology No qualifying data available. Other Therapies Transfer of Care OT - Ordered -- Reason for therapy: Intertrochanteric fracture of right hip, 12/28/22 12:29:00 EDT Transfer of Care PT - Ordered -- Reason for therapy: Intertrochanteric fracture of right hip, 12/28/22 12:29:00 EDT Post Acute Orders Transfer of Care Admission Level of Care - Ordered -- Level of Care SNF, 12/28/22 13:48:09 EDT Transfer of Care Code Status - Ordered -- Full Code, Constant Order Transfer of Care Communication Order - Ordered -- Expect less than 30 day stay., 12/28/22 13:48:09 EDT Transfer of Care Labwork - Ordered -- CBC/BMP, Anemia/ Diuretic management, Results Notify to: BERNIE REAGAN MD Results Notify to: Covering provider at [facility], 2-4 days, 12/28/22 12:29:00 EDT Transfer of Care Orders Electronically Signed By - Ordered -- 12/28/22 12:29:00 EDT, ROSARIO PENA DO Transfer of Care Prognosis - Ordered -- Good, Patient Aware: Yes Transfer of Care Rehab Potential - Ordered -- Rehab potential good, 12/28/22 12:29:30 EDT Someone Will Contact You Regarding These Home Health Referrals No home referrals have been ordered for you. No one will call you. Allergies Monopril pioglitazone Medications Please ask your primary doctor or pharmacist before taking any other medication not listed, including over the counter drugs, herbal medications, vitamins and or supplements as they may interact withyour home medications. What How Much When Why Instructions Last Dose New docusate (Colace 100 mg oral capsule) 1 cap by mouth Two (2) times a day as needed for Constipation New docusate-senna (docusate-senna 50 mg-8.6 mg oral tablet) 2 tab(s) by mouth Daily at bedtime New insulin lispro (HumaLOG) (HumaLOG 100 units/ mL subcutaneous solution) Give 0-5 units/dose Subcutaneous Three (3) times a day before meals New polyethylene glycol 3350 (MiraLax oral powder for reconstitution) by mouth Once a day as needed for Constipation Changed acetaminophen (Tylenol 325 mg oral capsule) 650 Milligram by mouth Every 4 hours as needed for TEMP greater than 38.6 degrees Celsius Changed acetaminophen (Tylenol 325 mg oral capsule) 650 Milligram by mouth Every 4 hours as needed for Pain, scale 1-3 Unchanged acetaminophen-hydrocodone (Upper Tract 325- 5 mg oral tablet) 1 tab(s) by mouth Every 6 hours as needed for Pain Post-op pain Intertrochanteric fracture of right hip Duration: 7 Days Printed Prescription Unchanged amLODIPine (amLODIPine 10 mg oral tablet) 1 tab(s) by mouth Once a day Unchanged apixaban (Eliquis 5 mg oral tablet) 1 tab(s) by mouth Two (2) times a day Unchanged atorvastatin (atorvastatin 20 mg oral tablet) 1 tab(s) by mouth Once a day Unchanged dilTIAZem (DilTIAZem (Eqv-Cardizem CD) 240 mg/ 24 hours oral capsule, extended release) 1 cap by mouth Once a day Unchanged furosemide (furosemide 20 mg oral tablet) 1 tab(s) by mouth Once a day Unchanged glimepiride (glimepiride 4 mg oral tablet) 1 tab(s) by mouth Two (2) times a day Unchanged metFORMIN (metFORMIN 1000 mg oral tablet (IR)) 1 tab(s) by mouth Two (2) times a day Unchanged metoprolol (Metoprolol Tartrate 100 mg oral tablet) 1 tab(s) by mouth Two (2) times a day Unchanged multivitamin (Multivitamin) 1 tab(s) by mouth Once a day Unchanged oxybutynin (oxybutynin 15 mg/ 24 hr oral tablet, extended release) 1 tab(s) by mouth Two (2) times a day Unchanged sertraline (sertraline 100 mg oral tablet) 1 tab(s) by mouth Once a day Please take this list to your next doctor s visit. Bring all medications you take, including over the counter medications, herbals and other supplements with you to your doctor s visit. Patients and families are reminded to discard old lists and to update any records with all medication providers or retail pharmacies. Additional Information VACCINATE! IT SAVES LIVES! Members of the community who have not yet received the COVID-19 vaccine and would like to receive it can visit one of [facility] vaccine clinics. There are many vaccine clinic locations within the [facility]. For locations and available times, please visit [email or web address] It is important to note that some COVID mobile vaccine clinics are held outdoors and may be canceled in rainy or stormy conditions. To learn more about pediatric vaccinations (ages 5-11), we invite you to visit the [facility] webpage. [email or web address] learn more about the COVID-19 vaccine, we invite you to visit the CDC website for a list of frequently asked questions.https://www.cdc.gov/coronavirus/2019-ncov/vaccines/faq.html [employer] Patient Portal Access Instructions: Stay connected with your healthcare team and access your personal medical information anytime with the [employer] Patient Portal. Please follow the directions below to create your [employer] account: 1.Access the email account you provided upon registration to the hospital/physician office.2.Look for an invitation email from [facility].3.Open the email and access the invitation link: AcceptInvitation to [facility].4.Fill in the required cunha to create your account. To access your account, visit [employer]. Click the blue button labeled Access Patient Portal and then log in with the username and password that you created in the steps above. You will be able to view your test results, lab results, a summary of your visits, upcoming appointments and more. There is also a convenient messaging option where you can send secure messages to your p rovider. In addition, you will have the ability to download any documents or summaries to your computer and/or send the information securely to a physician. Remember that your healthcare information is confidential, so carefully consider who you will allowto register on the [facility] Patient Portal for access to your information. You can also access the [facility] Patient Portal on the [facility] alfonzo. Simply click on Patient Portal and then log into your account. If you would like to receive a full copy of your medical records, please contact the [facility] Medical Records Department by calling [phone], Tuesday through Tuesday between 8 a.m. and 4:30 p.m. HOW TO SAFELY DISPOSE OF PRESCRIPTION MEDICATIONS Please use one of the following methods to safely dispose of your unused medications. 1.Use a drug disposal kit: the drug disposal pouch allows you to safely discard your old and unuseddrugs. Ask your nurse to give you one when you are discharged.2.Visit a local take-back location: Many local pharmacies and police departments have programs that collect old and unwanted prescriptiondrugs. Call your local pharmacy or go to http://DNAnexus/8C0Wy6q to find one close to you.3.Make use of household items: Use cat litter or old coffee grounds to dispose medications if other options arenot available. Mix your drugs with these household products, seal them in an airtight container andthrow it into the garbage. Call [facility]: [phone] to be sure your drugs can be disposed of in this way. Some medicines may require a different approach.4.Never flush your medications down the toilet. IF YOU HAVE BEEN PRESCRIBED AN OPIOID FOR PAIN If you have been prescribed an opioid (such as hydrocodone, oxycodone or morphine), it is critical to understand the possible side effects and risks of opioid pain medications. Even when taken as directed, opioids can have several side effects including: Tolerance, meaning you might need to take more of a medication for the same pain relief. Nausea, vomiting and/or constipation. Sleepiness, dizziness, dry mouth, confusion, depression or itching. Physical dependence, meaning you have withdrawal symptoms when a medication is stopped, can develop within a few days. KNOW YOUR RESPONSIBILITIES It is important to know exactly how much and how often to take the opioid pain medications you are prescribed. Never take opioids in higher amounts or more often than prescribed. Do not combine opioids with alcohol or other drugs that cause drowsiness, such as benzodiazepines, also known as benzos, including diazepam and alprazolam, muscle relaxants or sleep aids. Never sell or share prescription opioids. This is illegal. Store opioids in a secure place and out of reach of others (including children, family, friends and visitors). The last page of this document has been signed and retained as a CHART COPY. Signatures Patient Education Materials Medication Leaflets My discharge plan and instructions have been reviewed and explained to me and IVENKATESH CRISTIA understand my current condition and have read and understand these discharge instructions. I have received a written copy of the plan/instructions. If I have questions, I am aware that I should contact my doctor. 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: Date/Time: Relationship to Patient: Witness Name/Signature: [id number] Discharge summary Date of Service 12/28/22 Discharge Diagnosis 1. Intertrochanteric fracture of right hip s/p repair 2. Type 2 diabetes mellitus 3. Atrial fibrillation 4. History of CVA in adulthood 5. HTN (hypertension) 6. Acute hypoxemic respiratory failure 7. Acute blood loss anemia Additional Orders: Ordered: Colace 100 mg oral capsule,Dose : 100 mg = 1 cap(s), Oral, BID, PRN Constipation, 0 Refill(s) Ordered: Discharge,12/28/22 12:29:00 EDT, Discharged to: [facility] Ordered: HumaLOG 100 units/mL subcutaneous solution,Give 0-5 units/dose, Subcutaneous, TIDAC, 0 Refill(s) Ordered: MiraLax oral powder for reconstitution,Oral, qDay, PRN Constipation, 0 Refill(s) Ordered: Transfer of Care Activity,Other, Nonweightbearing to the right lower extremity, 12/28/22 12:29:00 EDT Ordered: Transfer of Care Code Status,Full Code, Constant Order Ordered: Transfer of Care Diet,Type of Diet: Regular Diet, Calories Permitted: 1800 kcal, 12/28/22 12:29:00 EDT Ordered: Transfer of Care Labwork,CBC/BMP, Anemia/ Diuretic management, Results Notify to: BERNIE REAGAN MD Results Notify to: Covering provider at [facility], 2-4 days, 12/28/22 12:29:00 EDT Ordered: Transfer of Care OT,Reason for therapy: Intertrochanteric fracture of right hip, 12/28/22 12:29:00 EDT Ordered: Transfer of Care Orders Electronically Signed By,12/28/22 12:29:00 EDT, ROSARIO PENA DO Ordered: Transfer of Care PT,Reason for therapy: Intertrochanteric fracture of right hip, 12/28/22 12:29:00 EDT Ordered: Transfer of Care Prognosis,Good, Patient Aware: Yes Ordered: Transfer of Care Rehab Potential,Rehab potential good, 12/28/22 12:29:30 EDT Ordered: Tylenol 325 mg oral capsule,Dose : 650 mg =, Oral, q4h, PRN Pain, scale 1-3, 0 Refill(s) Ordered: Tylenol 325 mg oral capsule,Dose : 650 mg =, Oral, q4h, PRN TEMP greater than 38.6 degreesCelsius, 0 Refill(s) Discontinued: acetaminophen 500 mg oral tablet,Dose : 1,000 mg = 2 tab(s), Oral, qDay, PRN as needed for pain Ordered: docusate-senna 50 mg-8.6 mg oral tablet,Dose = 2 tab(s), Oral, qHS, 0 Refill(s) Hospital Course Patient is very pleasant 72-year-old female with a past medical history significant for CVA, atrialfibrillation (with chronic anticoagulation with apixaban), hypertension, diabetes mellitus type 2. Patient presented to [facility] emergency department December 22, 2022 after sustaining a fall athome. Patient was found to have a right intertrochanteric fracture hip fracture. Patient was then transferred to [facility] for further evaluation orthopedic consult. Patient was found to be hyperglycemic. Patient was also found to be mildly hypoxic requiring 4 L oxygen via nasal cannula. On December 23, 2022 patient underwent closed reduction cephalomedullary nail fixation of right intertrochanteric hip fracture by Dr. Lubin. Patient required unit 1 unit of RBCs postoperatively. Diuretics were placed on hold briefly due to elevated creatinine. Creatinine has returned to baseline. Patient's home Lasix has been resumed. Echocardiogram completed during the patient's hospitalization showing an EF of 60 to 65%. Please see report for details. Patient was evaluated by physical therapy and Occupational Therapy recommend patient be discharged to a nursing home facility. Patient states she is feeling well. Patient is tolerating room air without difficulty. Patient denies any shortness of breath, chest pain, nausea, vomiting, lightness and dizziness. Patient denies any blood loss.Hemoglobin still lower than baseline. Patient is asymptomatic. We will repeat CBC and BMP as outpatient.At this time patient is medically optimized for discharge to the [facility]. Plan of care discussed in depth with patient. Patient verbalizes understanding and is agreeable plan of care. Discussed with my collaborating physician Dr. Rosario Pena This dictation was performed using voice recognition software and may include grammatical and/or spelling errors Allergies Monopril pioglitazone Consults Consult to Anesthesia - Ordered -- 12/22/22 21:05:00 EDT, surgery pending Consult to Case Management/Social Service - Ordered -- 12/22/22 21:05:00 EDT, Physician Order Consult to Physician - Ordered -- 12/22/22 21:05:00 EDT, JONH LUBIN DO, Routine, hip fracture Physical Exam Vitals and Measurements T: 36.9 C (Oral) TMIN: 36.6 C (Oral) TMAX: 36.9 C (Oral) HR: 76(Apical) RR: 18 BP: 122/61 SpO2: 94% Weight Dosing Weight: 89.6 kg (12/23/22) Dosing Weight: 89.6 kg (12/22/22) Physical Exam General: No acute distress. Alert and Appropriate Skin: No rash. Warm, Dry, Intact HEENT: Head is normocephalic and atraumatic. No lesions. Pupils equal in size. Extraocular movements within normal limits. Nose: No septal deviation. Mouth: Oropharynx mucosa is without lesion. Neck: Supple. No lymphadenopathy, thyromegaly noted. Lungs: Bilaterally clear/diminished breath sounds with no crepitation or wheeze. Unlabored Cardiovascular: Heart is regular rhythm, S1S2, No extra-audible heart tones Abdomen: Abdomen is soft, nontender. Bowel sounds positive all four quadrants. Extremities: No clubbing, cyanosis or edema. Peripheral pulses palpable. No calf tenderness. Adequate peripheral circulation. Immobilizer to right lower extremity Neurological: The patient is awake, oriented to time, people and place. Following simple commands, moving all extremities. Generalized weakness Code Status Code Status - Ordered -- 12/22/22 20:57:00 EDT, Full Code, Constant Order Admission Date 12/22/22 Discharge Date 12/28/22 Medications New Prescription docusate (Colace 100 mg oral capsule)1 cap by mouth two (2) times a day as needed Constipation. docusate-senna (docusate-senna 50 mg-8.6 mg oral tablet)2 tab(s) by mouth daily at bedtime. insulin lispro (HumaLOG) (HumaLOG 100 units/mL subcutaneous solution)Give 0-5 units/dose Subcutaneous three (3) times a day before meals. polyethylene glycol 3350 (MiraLax oral powder for reconstitution)by mouth once a day as needed Constipation. Changed acetaminophen (Tylenol 325 mg oral capsule)650 Milligram by mouth every 4 hours as needed TEMP greater than 38.6 degrees Celsius. acetaminophen (Tylenol 325 mg oral capsule)650 Milligram by mouth every 4 hours as needed Pain, scale 1-3. Unchanged acetaminophen-hydrocodone ([place] 325- 5 mg oral tablet)1 tab(s) by mouth every 6 hours as needed Pain for 7 Days. Refills: 0. amLODIPine (amLODIPine 10 mg oral tablet)1 tab(s) by mouth once a day. apixaban (Eliquis 5 mg oral tablet)1 tab(s) by mouth two (2) times a day. atorvastatin (atorvastatin 20 mg oral tablet)1 tab(s) by mouth once a day. dilTIAZem (DilTIAZem (Eqv-Cardizem CD) 240 mg/24 hours oral capsule, extended release)1 cap by mouth once a day. furosemide (furosemide 20 mg oral tablet)1 tab(s) by mouth once a day. glimepiride (glimepiride 4 mg oral tablet)1 tab(s) by mouth two (2) times a day. metFORMIN (metFORMIN 1000 mg oral tablet (IR))1 tab(s) by mouth two (2) times a day. metoprolol (Metoprolol Tartrate 100 mg oral tablet)1 tab(s) by mouth two (2) times a day. multivitamin (Multivitamin)1 tab(s) by mouth once a day. oxybutynin (oxybutynin 15 mg/24 hr oral tablet, extended release)1 tab(s) by mouth two (2) times a day. sertraline (sertraline 100 mg oral tablet)1 tab(s) by mouth once a day. Follow Up Follow Up with JONH LUBIN DO, Orthopedic When 01/11/2023 02:00 PM EDT Why: PLEASE ARRIVE 15 MINUTES EARLY Where: [address] [place] [address]- Follow Up with BERNIE REAGAN MD When Within 2-4 days Where: [address] [place] [address] [phone] Follow Up Appointments Transfer of Care OT - Ordered -- Reason for therapy: Intertrochanteric fracture of right hip, 12/28/22 12:29:00 EDT Transfer of Care PT - Ordered -- Reason for therapy: Intertrochanteric fracture of right hip, 12/28/22 12:29:00 EDT Follow Up Labs/Studies Discharge Labs Transfer of Care Labwork - Ordered -- CBC/BMP, Anemia/ Diuretic management, Results Notify to: BERNIE REAGAN MD Results Notify to: Covering provider at [facility], 2-4 days, 12/28/22 12:29:00 EDT Discharge Studies No Follow-up Studies Discharge Diet Transfer of Care Diet - Ordered -- Type of Diet: Regular Diet, Calories Permitted: 1800 kcal, 12/28/22 12:29:00 EDT Discharge Activity Transfer of Care Activity - Ordered -- Other, Nonweightbearing to the right lower extremity, 12/28/22 12:29:00 EDT Condition on Discharge Stable Discharge Disposition [facility] Information Provided To Patient Time Spent 32 minutes Digitally Signed by BRISEYDA JOHANSEN on 12/28/2022 02:26 PM [facility] [id number] Note* Exam Date Time Procedure Performing Provider Status 12/27/22 4:43 PM Echocardiogram, Adult - CV Auth (Verified) [facility] 08-14-2023 Note Date of Service 12.27.22 Chief Complaint hypoxia Subjective This is a 72-year-old female with a history of CVA, A-fib, hypertension, hyperlipidemia, diabetes who presented to the hospital after having a fall at home. She was found to have a right intertrochanteric fracture of the right hip. Underwent repair 12/23. Postoperatively her blood sugar was running high in the 300s, her home medications are on hold. She has been mildly hypoxic, since surgery, remains mildly hypoxic 89% on room air, replaced with 2L NC and 92%.. CXR obtained showing hypoventilation, patient denies SOB or cough. states she has been using IS. Received 1 unit RBCs 12/25, HGB improved to 7.8, down silghtly to 7.5. creatinine improved to 1.19. 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 and states she is supposed to call if she gains more than 2pounds in 24 hours. Denies feeling SOB, has no chest pain, no nausea, pain is controlled no new complaints today, was able to wean to room air this am and has been stable on room air today Objective Vitals and Measurements T: 36.6 C (Oral) TMIN: 36.5 C (Axillary) TMAX: 36.6 C (Oral) HR: 62 RR: 18 BP: 116/52 SpO2: 93% Intake and Output 7AM Yesterday to 7AM Today Intake and Output (Last 24 hours) Intake Oral Intake 420.00 Output Urine Voided 600.00 Urinary Catheter Output: 1600.00 Stool Count 0.00 Diaper Count 1.00 Total Summary Total Intake 420.00 Total Output 2200.00 Fluid Balance -1780.00 Physical Exam Weight Dosing Weight: 89.6 kg (12/23/22) Dosing Weight: 89.6 kg (12/22/22) Vitals Signs(Last 24 hrs)__ Last Charted Minimum Maximum Temp 36.6(DEC 27 15:46) 36.6(DEC 27:46) 36.6(DEC 26 23:00) Heart Rate 66(DEC 27 08:49) 66(DEC 27 08:49) 70(DEC 26 17:11) Resp Rate 18(DEC 27 15:46) 18(DEC 26 23:00) 18(DEC 26 23:00) SBP 116(DEC 27:46) 116(DEC 27 15:46) 137(DEC 27 07:14) DBP L 52(DEC 27:46) L 51(DEC 26 23:00) 62(DEC 27:14) Physical Exam General: No acute distress. Alert and Appropriate Skin: No rash. Warm, Dry, right hip dressing Lungs: Bilaterally clear breath sounds with no crepitation or wheeze. Cardiovascular: Heart is regular rhythm, S1S2, No extra-audible heart tones Abdomen: Abdomen is soft, nontender. Bowel sounds positive all four quadrants. No hepatosplenomegaly noted. Extremities: No clubbing, cyanosis or edema. Neurological: The patient is awake, oriented to person, place and time. Following simple commands, moving all extremities. Medications Medications (27) Active Scheduled: (12) acetaminophen 325 mg Tablet 650 mg 2 tab(s), Oral, QID amLODIPine 10 mg tablet 10 mg 1 tab(s), Oral, qDay apixaban 5 mg tablet 5 mg 1 tab(s), Oral, BID diltiazem 240 mg/24 hours ER capsule 240 mg 1 cap(s), Oral, qDay docusate-senna (Senokot S) 50 mg-8.6 mg Tablet 2 tab(s), Oral, qHS furosemide 20 mg tablet 20 mg 1 tab(s), Oral, qDay insulin lispro 100 units/mL Soln (3 mL) Give 0-5 units/dose, Subcutaneous, TIDAC metoprolol tartrate 100 mg tablet 100 mg 1 tab(s), Oral, BID multivitamin tablet 1 tab(s), Oral, qDay mupirocin 2% Ointment 22 Gram(s) tube 1 alfonzo, Nostril, each, BID oxybutynin 5 mg ER tablet 15 mg 3 tab(s), Oral, BID sertraline 100 mg tablet 100 mg 1 tab(s), Oral, qDay Continuous: (0) PRN: (15) acetaminophen 325 mg Tablet 650 mg 2 tab(s), Oral, q4h acetaminophen 325 mg Tablet 650 mg 2 tab(s), Oral, q4h acetaminophen-HYDROcodone 325-5 mg tablet 1 tab(s), Oral, q4h albuterol - ipratropium 2.5 mg-0.5 mg/3 mL Inhal Laquita UD 3 mL, Inhalation, q4hRT diphenhydramine 25 mg tablet 25 mg 1 tab(s), Oral, qHS docusate sodium 100 mg Capsule 100 mg 1 cap(s), Oral, BID hydromorphone 1 mg/mL (1mL) INJ 1 mg 1 mL, IV Push, q3h ibuprofen 400 mg tablet 400 mg 1 tab(s), Oral, q6h morphine 2 mg/mL 1 mL syringe 2 mg 1 mL, IV Push, q3h ondansetron 2 mg/ 1 mL 2 mL INJ 4 mg 2 mL, IV Push, q4h ondansetron 4 mg DIS tablet 4 mg 1 tab(s), Oral, q6h oxycodone 5 mg tablet (immediate release) 5 mg 1 tab(s), Oral, q4h polyethylene glycol 3350 - UD packet 17 gram(s) 15 mL, Oral, qDay tramadol 50 mg Tablet 50 mg 1 tab(s), Oral, q4h tramadol 50 mg Tablet 100 mg 2 tab(s), Oral, q6h Lab Results 12/27 04:15 WBC: 8.8 Hgb: 7.5 L Hct: 22.0 L Platelet: 210 Neutrophil %: 76.1 H Glucose Level: 146 H Sodium Level: 142 Potassium Level: 3.9 BUN: 32.0 H Creatinine Lvl (s): 1.01 12/26 04:50 WBC: 7.9 Hgb: 7.8 L Hct: 23.3 L Platelet: 182 Neutrophil %: 78.3 H Glucose Level: 160 H Sodium Level: 141 Potassium Level: 3.9 BUN: 35.0 H Creatinine Lvl (s): 1.19 EKG No qualifying data available. Assessment/Plan 1. Intertrochanteric fracture of right hip 2. Type 2 diabetes mellitus 3. Atrial fibrillation 4. History of CVA in adulthood 5. HTN (hypertension) 6. Acute hypoxemic respiratory failure 7. Acute blood loss anemia Status post repair of hip fracture, pain seems to be well-controlled. Having some postoperative hypoxia, encouraged her to continue with incentive spirometer, wean O2 as able. States she uses a CPAP at home, this has been ordered. cxr showed hypoventilation, lasix held due to rising creatinine. base line 1.1. improved and lasix resumed. monitor bmp ECHO Ordered-still pending today.ABG showed mild hypoxia History of type 2 diabetes, blood sugars running high postoperatively, sliding scale coverage ordered, ada diet postop anemia-received one unit RBCs on12.25, hgb improved 7.8, down to 7.5 today, reepat labs in am, resumed eliquis 12/26 Patient has precert for SNF, awating echo Split/shared visit with Dr. Monzon Orders: Straight Cath Time Spent I spent a total of 26 minutes reviewing the patient s diagnostic labs/tests, seeing and examining the patient and documenting in the medical record, see assessment for further detail. Digitally Signed by JANI LOPEZ on 12/27/2022 04:29 PM [facility] [id number] Note Date of Service 12.26.22 Chief Complaint hypoxia Subjective This is a 72-year-old female with a history of CVA, A-fib, hypertension, hyperlipidemia, diabetes who presented to the hospital after having a fall at home. She was found to have a right intertrochanteric fracture of the right hip. Underwent repair 12/23. Postoperatively her blood sugar was running high in the 300s, her home medications are on hold. She has been mildly hypoxic, since surgery, remains mildly hypoxic 89% on room air, replaced with 2L NC and 92%.. CXR obtained showing hypoventilation, patient denies SOB or cough. states she has been using IS. Received 1 unit RBCs 12/25, HGB improved to 7.8 today. creatinine improved to 1.19. 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 and states she is supposed to call if she gains more than 2pounds in 24 hours. Denies feeling SOB, has no chest pain, no nausea, pain is controlled Objective Vitals and Measurements T: 36.8 C (Oral) TMIN: 36.0 C (Axillary) TMAX: 36.9 C (Oral) HR: 78(Apical) RR: 18 BP: 112/62 SpO2:92% Intake and Output 7AM Yesterday to 7AM Today Intake and Output (Last 24 hours) Intake Red Blood Cells Amount Transfused 500.00 Oral Intake 220.00 Output Urine Voided 0.00 Urinary Catheter Output: 2600.00 Stool Count 0.00 Total Summary Total Intake 720.00 Total Output 2600.00 Fluid Balance -1880.00 Physical Exam Weight Dosing Weight: 89.6 kg (12/23/22) Dosing Weight: 89.6 kg (12/22/22) Vitals Signs(Last 24 hrs)__ Last Charted Minimum Maximum Temp 36.8(DEC 26 07:13) 36.8(DEC 26 07:13) 36.9(DEC 25 12:39) Heart Rate 78(DEC 26 08:40) 69(DEC 25 13:09) 78(DEC 26 08:40) Resp Rate 18(DEC 26 07:13) 18(DEC 25 12:39) 20(DEC 25 13:09) SBP 112(DEC 26 07:13) 97(DEC 25 16:48) 122(DEC 25 23:17) DBP 62(DEC 26 07:13) L 54(DEC 25 12:39) 62(DEC 25 15:48) Physical Exam General: No acute distress. Alert and Appropriate Skin: No rash. Warm, Dry, right hip dressing Lungs: Bilaterally clear breath sounds with no crepitation or wheeze. Cardiovascular: Heart is regular rhythm, S1S2, No extra-audible heart tones Abdomen: Abdomen is soft, nontender. Bowel sounds positive all four quadrants. No hepatosplenomegaly noted. Extremities: No clubbing, cyanosis or edema. Neurological: The patient is awake, oriented to person, place and time. Following simple commands, moving all extremities. Medications Medications (27) Active Scheduled: (12) acetaminophen 325 mg Tablet 650 mg 2 tab(s), Oral, QID amLODIPine 10 mg tablet 10 mg 1 tab(s), Oral, qDay apixaban 5 mg tablet 5 mg 1 tab(s), Oral, BID diltiazem 240 mg/24 hours ER capsule 240 mg 1 cap(s), Oral, qDay docusate-senna (Senokot S) 50 mg-8.6 mg Tablet 2 tab(s), Oral, qHS furosemide 20 mg tablet 20 mg 1 tab(s), Oral, qDay insulin lispro 100 units/mL Soln (3 mL) Give 0-5 units/dose, Subcutaneous, TIDAC metoprolol tartrate 100 mg tablet 100 mg 1 tab(s), Oral, BID multivitamin tablet 1 tab(s), Oral, qDay mupirocin 2% Ointment 22 Gram(s) tube 1 alfonzo, Nostril, each, BID oxybutynin 5 mg ER tablet 15 mg 3 tab(s), Oral, BID sertraline 100 mg tablet 100 mg 1 tab(s), Oral, qDay Continuous: (0) PRN: (15) acetaminophen 325 mg Tablet 650 mg 2 tab(s), Oral, q4h acetaminophen 325 mg Tablet 650 mg 2 tab(s), Oral, q4h acetaminophen-HYDROcodone 325-5 mg tablet 1 tab(s), Oral, q4h albuterol - ipratropium 2.5 mg-0.5 mg/3 mL Inhal Laquita UD 3 mL, Inhalation, q4hRT diphenhydramine 25 mg tablet 25 mg 1 tab(s), Oral, qHS docusate sodium 100 mg Capsule 100 mg 1 cap(s), Oral, BID hydromorphone 1 mg/mL (1mL) INJ 1 mg 1 mL, IV Push, q3h ibuprofen 400 mg tablet 400 mg 1 tab(s), Oral, q6h morphine 2 mg/mL 1 mL syringe 2 mg 1 mL, IV Push, q3h ondansetron 2 mg/ 1 mL 2 mL INJ 4 mg 2 mL, IV Push, q4h ondansetron 4 mg DIS tablet 4 mg 1 tab(s), Oral, q6h oxycodone 5 mg tablet (immediate release) 5 mg 1 tab(s), Oral, q4h polyethylene glycol 3350 - UD packet 17 gram(s) 15 mL, Oral, qDay tramadol 50 mg Tablet 50 mg 1 tab(s), Oral, q4h tramadol 50 mg Tablet 100 mg 2 tab(s), Oral, q6h Lab Results 12/26 04:50 WBC: 7.9 Hgb: 7.8 L Hct: 23.3 L Platelet: 182 Neutrophil %: 78.3 H Glucose Level: 160 H Sodium Level: 141 Potassium Level: 3.9 BUN: 35.0 H Creatinine Lvl (s): 1.19 12/25 05:05 WBC: 11.0 H Hgb: 7.0 L Hct: 20.8 L Platelet: 222 Neutrophil %: 79.3 H Glucose Level: 179 H Sodium Level: 138 Potassium Level: 4.3 BUN: 37.0 H Creatinine Lvl (s): 1.37 H EKG No qualifying data available. Assessment/Plan 1. Intertrochanteric fracture of right hip 2. Type 2 diabetes mellitus 3. Atrial fibrillation 4. History of CVA in adulthood 5. HTN (hypertension) 6. Acute hypoxemic respiratory failure 7. Acute blood loss anemia Status post repair of hip fracture, pain seems to be well-controlled. Having some postoperative hypoxia, encouraged her to continue with incentive spirometer, wean O2 as able. States she uses a CPAP at home, this has been ordered. cxr showed hypoventilation, lasix held due to rising creatinine. base line 1.1. improved today to 1.19, resuming lasix today, labs tomorrow ECHO Ordered.ABG showed mild hypoxia History of type 2 diabetes, blood sugars running high postoperatively, sliding scale coverage ordered, ada diet postop anemia-received one unit RBCs on8.12, hgb improved 7.8, resuming eliquis today Split/shared visit with Dr. Monzon Orders: apixaban, Start: 12/26/22 9:31:00 EDT, Dose = 5 mg, = 1 tab(s), Oral, BID, Indication for Use Atrial fibrillation, 0, 12/26/22 9:31:00 EDT docusate-senna, Start: 12/25/22 22:00:00 EDT, Dose = 2 tab(s), Tab, Oral, qHS, 12/25/22 15:30:00 EDT furosemide, Start: 12/26/22 9:31:00 EDT, Dose = 20 mg, = 1 tab(s), Oral, qDay, 12/26/22 9:31:00 EDT Time Spent I spent a total of 39 minutes reviewing the patient s diagnostic labs/tests, seeing and examining the patient and documenting in the medical record, see assessment for further detail. Digitally Signed by JANI LOPEZ on 12/26/2022 12:13 PM [facility] [id number] Note Date of Service 12.25.22 Chief Complaint anemia, hypoxia Subjective This is a 72-year-old female with a history of CVA, A-fib, hypertension, hyperlipidemia, diabetes who presented to the hospital after having a fall at home. She was found to have a right intertrochanteric fracture of the right hip. Underwent repair 12/23. Postoperatively her blood sugar was running high in the 300s, her home medications are on hold. She has been mildly hypoxic, since surgery, remains mildly hypoxic 85% on 4L overnight, then 90% on 5L, now 96% on 5L. CXR obtained showing hypoventilation, patient denies SOB or cough. states she has been using IS. HGB down to 7.0, creatinine up to 1.37. Patient states she is still not eating very well. Blod sugars running slightly high. Objective Vitals and Measurements T: 36.7 C (Oral) TMIN: 36.4 C (Axillary) TMAX: 37.2 C (Oral) HR: 71 RR: 20 BP: 106/60 SpO2: 96% Intake and Output 7AM Yesterday to 7AM Today Intake and Output (Last 24 hours) Intake Oral Intake 600.00 Output Urinary Catheter Output: 1550.00 Stool Count 0.00 Total Summary Total Intake 600.00 Total Output 1550.00 Fluid Balance -950.00 Physical Exam Weight Dosing Weight: 89.6 kg (12/23/22) Dosing Weight: 89.6 kg (12/22/22) .vs Vitals Signs(Last 24 hrs)__ Last Charted Minimum Maximum Temp 36.7(DEC 25 15:03) 36.7(DEC 25 15:03) 37.0(DEC 24 15:49) Heart Rate 69(DEC 25 13:09) 69(DEC 25 13:09) 78(DEC 24 17:38) Resp Rate 20(DEC 25 15:03) 16(DEC 24 19:37) 20(DEC 25 06:45) SBP 106(DEC 25 15:03) L 87(DEC 24 19:21) 115(DEC 25 06:45) DBP 60(DEC 25 15:03) L 51(DEC 24 15:49) 60(DEC 24 19:37) Physical Exam General: No acute distress. Alert and Appropriate Skin: No rash. Warm, Dry, right hip dressing Lungs: Bilaterally clear breath sounds with no crepitation or wheeze. Cardiovascular: Heart is regular rhythm, S1S2, No extra-audible heart tones Abdomen: Abdomen is soft, nontender. Bowel sounds positive all four quadrants. No hepatosplenomegaly noted. Extremities: No clubbing, cyanosis or edema. Neurological: The patient is awake, oriented to person, place and time. Following simple commands, moving all extremities. Medications Medications (26) Active Scheduled: (10) acetaminophen 325 mg Tablet 650 mg 2 tab(s), Oral, QID amLODIPine 10 mg tablet 10 mg 1 tab(s), Oral, qDay diltiazem 240 mg/24 hours ER capsule 240 mg 1 cap(s), Oral, qDay docusate-senna (Senokot S) 50 mg-8.6 mg Tablet 2 tab(s), Oral, qHS insulin lispro 100 units/mL Soln (3 mL) Give 0-5 units/dose, Subcutaneous, TIDAC metoprolol tartrate 100 mg tablet 100 mg 1 tab(s), Oral, BID multivitamin tablet 1 tab(s), Oral, qDay mupirocin 2% Ointment 22 Gram(s) tube 1 alfonzo, Nostril, each, BID oxybutynin 5 mg ER tablet 15 mg 3 tab(s), Oral, BID sertraline 100 mg tablet 100 mg 1 tab(s), Oral, qDay Continuous: (1) NS (0.9% nacl) 500 mL 500 mL, Intravenous, 20 mL/hr PRN: (15) acetaminophen 325 mg Tablet 650 mg 2 tab(s), Oral, q4h acetaminophen 325 mg Tablet 650 mg 2 tab(s), Oral, q4h acetaminophen-HYDROcodone 325-5 mg tablet 1 tab(s), Oral, q4h albuterol - ipratropium 2.5 mg-0.5 mg/3 mL Inhal Laquita UD 3 mL, Inhalation, q4hRT diphenhydramine 25 mg tablet 25 mg 1 tab(s), Oral, qHS docusate sodium 100 mg Capsule 100 mg 1 cap(s), Oral, BID hydromorphone 1 mg/mL (1mL) INJ 1 mg 1 mL, IV Push, q3h ibuprofen 400 mg tablet 400 mg 1 tab(s), Oral, q6h morphine 2 mg/mL 1 mL syringe 2 mg 1 mL, IV Push, q3h ondansetron 2 mg/ 1 mL 2 mL INJ 4 mg 2 mL, IV Push, q4h ondansetron 4 mg DIS tablet 4 mg 1 tab(s), Oral, q6h oxycodone 5 mg tablet (immediate release) 5 mg 1 tab(s), Oral, q4h polyethylene glycol 3350 - UD packet 17 gram(s) 15 mL, Oral, qDay tramadol 50 mg Tablet 50 mg 1 tab(s), Oral, q4h tramadol 50 mg Tablet 100 mg 2 tab(s), Oral, q6h Lab Results 12/25 05:05 WBC: 11.0 H Hgb: 7.0 L Hct: 20.8 L Platelet: 222 Neutrophil %: 79.3 H Glucose Level: 179 H Sodium Level: 138 Potassium Level: 4.3 BUN: 37.0 H Creatinine Lvl (s): 1.37 H 12/24 20:26 Hgb: 7.0 L Hct: 21.1 L 12/24 13:16 Hgb: 7.1 L Hct: 21.0 L 12/24 03:48 WBC: 12.1 H Hgb: 7.5 L Hct: 23.2 L Platelet: 252 Neutrophil %: 82.7 H Glucose Level: 143 H Sodium Level: 139 Potassium Level: 4.6 BUN: 31.0 H Creatinine Lvl (s): 1.25 H EKG No qualifying data available. Assessment/Plan 1. Intertrochanteric fracture of right hip 2. Type 2 diabetes mellitus 3. Atrial fibrillation 4. History of CVA in adulthood 5. HTN (hypertension) 6. Acute hypoxemic respiratory failure 7. Acute blood loss anemia Status post repair of hip fracture, pain seems to be well-controlled. Having some postoperative hypoxia, encouraged her to continue with incentive spirometer, wean O2 as able. States she uses a CPAP at home, this has been ordered. cxr showed hypoventilation, lasix on hold due to rising creatinine. b aseline 1.1. ECHO Ordered.ABG showed mild hypoxia History of type 2 diabetes, blood sugars running high postoperatively, sliding scale coverage ordered, ada diet postop anemia-down today, hgb 7.0, 1 unit RBCs ordered. lasix after/ hold off on resuming eliquis until HGB is stable. History of atrial fibrillation, per Ortho plan is to resume home anticoagulation postop day 1. Split/shared visit with Dr. Monzon Orders: docusate-senna, Start: 12/25/22 22:00:00 EDT, Dose = 2 tab(s), Tab, Oral, qHS, 12/25/22 15:30:00 EDT Sodium Chloride 0.9% intravenous solution 500 mL, Start: 12/25/22 11:19:00 EDT, 6 hour(s), Stop date 12/25/22 17:18:00 EDT, Rate: 20 mL/hr, 12/25/22 11:19:00 EDT CPAP Crossmatch Comments: Ordered by Discern Time Spent I spent a total of 40 minutes reviewing the patient s diagnostic labs/tests, seeing and examining the patient and documenting in the medical record, see assessment for further detail. Digitally Signed by JANI LOPEZ on 12/25/2022 03:37 PM [id number] Note Date of Service 12.25.22 Chief Complaint anemia, hypoxia Subjective This is a 72-year-old female with a history of CVA, A-fib, hypertension, hyperlipidemia, diabetes who presented to the hospital after having a fall at home. She was found to have a right intertrochanteric fracture of the right hip. Underwent repair 12/23. Postoperatively her blood sugar was running high in the 300s, her home medications are on hold. She has been mildly hypoxic, since surgery, remains mildly hypoxic 85% on 4L overnight, then 90% on 5L, now 96% on 5L. CXR obtained showing hypoventilation, patient denies SOB or cough. states she has been using IS. HGB down to 7.0, creatinine up to 1.37. Patient states she is still not eating very well. Blod sugars running slightly high. Objective Vitals and Measurements T: 36.7 C (Oral) TMIN: 36.4 C (Axillary) TMAX: 37.2 C (Oral) HR: 71 RR: 20 BP: 106/60 SpO2: 96% Intake and Output 7AM Yesterday to 7AM Today Intake and Output (Last 24 hours) Intake Oral Intake 600.00 Output Urinary Catheter Output: 1550.00 Stool Count 0.00 Total Summary Total Intake 600.00 Total Output 1550.00 Fluid Balance -950.00 Physical Exam Weight Dosing Weight: 89.6 kg (12/23/22) Dosing Weight: 89.6 kg (12/22/22) .vs Vitals Signs(Last 24 hrs)__ Last Charted Minimum Maximum Temp 36.7(DEC 25 15:03) 36.7(DEC 25 15:03) 37.0(DEC 24 15:49) Heart Rate 69(DEC 25 13:09) 69(DEC 25 13:09) 78(DEC 24 17:38) Resp Rate 20(DEC 25 15:03) 16(DEC 24 19:37) 20(DEC 25 06:45) SBP 106(DEC 25 15:03) L 87(DEC 24 19:21) 115(DEC 25 06:45) DBP 60(DEC 25 15:03) L 51(DEC 24 15:49) 60(DEC 24 19:37) Physical Exam General: No acute distress. Alert and Appropriate Skin: No rash. Warm, Dry, right hip dressing Lungs: Bilaterally clear breath sounds with no crepitation or wheeze. Cardiovascular: Heart is regular rhythm, S1S2, No extra-audible heart tones Abdomen: Abdomen is soft, nontender. Bowel sounds positive all four quadrants. No hepatosplenomegaly noted. Extremities: No clubbing, cyanosis or edema. Neurological: The patient is awake, oriented to person, place and time. Following simple commands, moving all extremities. Medications Medications (26) Active Scheduled: (10) acetaminophen 325 mg Tablet 650 mg 2 tab(s), Oral, QID amLODIPine 10 mg tablet 10 mg 1 tab(s), Oral, qDay diltiazem 240 mg/24 hours ER capsule 240 mg 1 cap(s), Oral, qDay docusate-senna (Senokot S) 50 mg-8.6 mg Tablet 2 tab(s), Oral, qHS insulin lispro 100 units/mL Soln (3 mL) Give 0-5 units/dose, Subcutaneous, TIDAC metoprolol tartrate 100 mg tablet 100 mg 1 tab(s), Oral, BID multivitamin tablet 1 tab(s), Oral, qDay mupirocin 2% Ointment 22 Gram(s) tube 1 alfonzo, Nostril, each, BID oxybutynin 5 mg ER tablet 15 mg 3 tab(s), Oral, BID sertraline 100 mg tablet 100 mg 1 tab(s), Oral, qDay Continuous: (1) NS (0.9% nacl) 500 mL 500 mL, Intravenous, 20 mL/hr PRN: (15) acetaminophen 325 mg Tablet 650 mg 2 tab(s), Oral, q4h acetaminophen 325 mg Tablet 650 mg 2 tab(s), Oral, q4h acetaminophen-HYDROcodone 325-5 mg tablet 1 tab(s), Oral, q4h albuterol - ipratropium 2.5 mg-0.5 mg/3 mL Inhal Laquita UD 3 mL, Inhalation, q4hRT diphenhydramine 25 mg tablet 25 mg 1 tab(s), Oral, qHS docusate sodium 100 mg Capsule 100 mg 1 cap(s), Oral, BID hydromorphone 1 mg/mL (1mL) INJ 1 mg 1 mL, IV Push, q3h ibuprofen 400 mg tablet 400 mg 1 tab(s), Oral, q6h morphine 2 mg/mL 1 mL syringe 2 mg 1 mL, IV Push, q3h ondansetron 2 mg/ 1 mL 2 mL INJ 4 mg 2 mL, IV Push, q4h ondansetron 4 mg DIS tablet 4 mg 1 tab(s), Oral, q6h oxycodone 5 mg tablet (immediate release) 5 mg 1 tab(s), Oral, q4h polyethylene glycol 3350 - UD packet 17 gram(s) 15 mL, Oral, qDay tramadol 50 mg Tablet 50 mg 1 tab(s), Oral, q4h tramadol 50 mg Tablet 100 mg 2 tab(s), Oral, q6h Lab Results 12/25 05:05 WBC: 11.0 H Hgb: 7.0 L Hct: 20.8 L Platelet: 222 Neutrophil %: 79.3 H Glucose Level: 179 H Sodium Level: 138 Potassium Level: 4.3 BUN: 37.0 H Creatinine Lvl (s): 1.37 H 12/24 20:26 Hgb: 7.0 L Hct: 21.1 L 12/24 13:16 Hgb: 7.1 L Hct: 21.0 L 12/24 03:48 WBC: 12.1 H Hgb: 7.5 L Hct: 23.2 L Platelet: 252 Neutrophil %: 82.7 H Glucose Level: 143 H Sodium Level: 139 Potassium Level: 4.6 BUN: 31.0 H Creatinine Lvl (s): 1.25 H EKG No qualifying data available. Assessment/Plan 1. Intertrochanteric fracture of right hip 2. Type 2 diabetes mellitus 3. Atrial fibrillation 4. History of CVA in adulthood 5. HTN (hypertension) 6. Acute hypoxemic respiratory failure 7. Acute blood loss anemia Status post repair of hip fracture, pain seems to be well-controlled. Having some postoperative hypoxia, encouraged her to continue with incentive spirometer, wean O2 as able. States she uses a CPAP at home, this has been ordered. cxr showed hypoventilation, lasix on hold due to rising creatinine. b aseline 1.1. ECHO Ordered.ABG showed mild hypoxia History of type 2 diabetes, blood sugars running high postoperatively, sliding scale coverage ordered, ada diet postop anemia-down today, hgb 7.0, 1 unit RBCs ordered. lasix after/ hold off on resuming eliquis until HGB is stable. History of atrial fibrillation, per Ortho plan is to resume home anticoagulation postop day 1. Split/shared visit with Dr. Monzon Orders: docusate-senna, Start: 12/25/22 22:00:00 EDT, Dose = 2 tab(s), Tab, Oral, qHS, 12/25/22 15:30:00 EDT Sodium Chloride 0.9% intravenous solution 500 mL, Start: 12/25/22 11:19:00 EDT, 6 hour(s), Stop date 12/25/22 17:18:00 EDT, Rate: 20 mL/hr, 12/25/22 11:19:00 EDT CPAP Crossmatch Comments: Ordered by Discern Time Spent I spent a total of 40 minutes reviewing the patient s diagnostic labs/tests, seeing and examining the patient and documenting in the medical record, see assessment for further detail. Digitally Signed by JANI LOPEZ on 12/25/2022 03:37 PM [id number] Orthopaedic surgery Progress note Date of Service 12-25-2022 Chief Complaint Postop day 2 from right cephalomedullary nail Subjective Patient was seen and examined at bedside this morning. Patient was resting comfortably upon my arrival. Patient reports she has been doing well, however has not ambulated with physical therapy yet. She reports some pain in her hip, however it is not unbearable. Patient has been eating and drinking without issues following surgery. Has no other needs at this time. Reports no nausea, vomiting, diarrhea, chest pain, shortness of breath. Objective Vitals and Measurements T: 36.4 C (Axillary) TMIN: 36.4 C (Axillary) TMAX: 37.2 C (Oral) HR: 58 RR: 18 BP: 110/59 SpO2: 98% Intake and Output 7AM Yesterday to 7AM Today Intake and Output (Last 24 hours) Intake Oral Intake 1180.00 Administration Information 800.00 Output Urine Voided 350.00 Urinary Catheter Output: 750.00 Stool Count 0.00 Total Summary Total Intake 1980.00 Total Output 1100.00 Fluid Balance 880.00 Physical Exam General: NAD, A&Ox3 HEENT: normocephalic, atraumatic, EOMI intact CV: pulses regular throughout, brisk cap refill throughout, Pulm: normal work of breathing, equal chest rise bilaterally, no intercostal retractions or conversational dyspnea GI: abdomen is soft, nontender, nondistended, no rigidity or guarding Psych: calm and cooperative Right lower extremity -Dressing is clean dry and intact without signs of infection -Skin pink and well perfused -Sensation intact to light touch L3-S1 -Gross motor function intact to dorsi/plantarflexion of ankle and toes -DP, TP pulses palpable -Compartments are soft and compressible -No calf tenderness Weight Dosing Weight: 89.6 kg (12/23/22) Dosing Weight: 89.6 kg (12/22/22) Medications Medications (25) Active Scheduled: (10) acetaminophen 325 mg Tablet 650 mg 2 tab(s), Oral, QID amLODIPine 10 mg tablet 10 mg 1 tab(s), Oral, qDay diltiazem 240 mg/24 hours ER capsule 240 mg 1 cap(s), Oral, qDay furosemide 20 mg tablet 20 mg 1 tab(s), Oral, qDay insulin lispro 100 units/mL Soln (3 mL) Give 0-5 units/dose, Subcutaneous, TIDAC metoprolol tartrate 100 mg tablet 100 mg 1 tab(s), Oral, BID multivitamin tablet 1 tab(s), Oral, qDay mupirocin 2% Ointment 22 Gram(s) tube 1 alfonzo, Nostril, each, BID oxybutynin 5 mg ER tablet 15 mg 3 tab(s), Oral, BID sertraline 100 mg tablet 100 mg 1 tab(s), Oral, qDay Continuous: (0) PRN: (15) acetaminophen 325 mg Tablet 650 mg 2 tab(s), Oral, q4h acetaminophen 325 mg Tablet 650 mg 2 tab(s), Oral, q4h acetaminophen-HYDROcodone 325-5 mg tablet 1 tab(s), Oral, q4h albuterol - ipratropium 2.5 mg-0.5 mg/3 mL Inhal Laquita UD 3 mL, Inhalation, q4hRT diphenhydramine 25 mg tablet 25 mg 1 tab(s), Oral, qHS docusate sodium 100 mg Capsule 100 mg 1 cap(s), Oral, BID hydromorphone 1 mg/mL (1mL) INJ 1 mg 1 mL, IV Push, q3h ibuprofen 400 mg tablet 400 mg 1 tab(s), Oral, q6h morphine 2 mg/mL 1 mL syringe 2 mg 1 mL, IV Push, q3h ondansetron 2 mg/ 1 mL 2 mL INJ 4 mg 2 mL, IV Push, q4h ondansetron 4 mg DIS tablet 4 mg 1 tab(s), Oral, q6h oxycodone 5 mg tablet (immediate release) 5 mg 1 tab(s), Oral, q4h polyethylene glycol 3350 - UD packet 17 gram(s) 15 mL, Oral, qDay tramadol 50 mg Tablet 50 mg 1 tab(s), Oral, q4h tramadol 50 mg Tablet 100 mg 2 tab(s), Oral, q6h Lab Results 12/24 20:26 Hgb: 7.0 L Hct: 21.1 L 12/24 13:16 Hgb: 7.1 L Hct: 21.0 L 12/24 03:48 WBC: 12.1 H Hgb: 7.5 L Hct: 23.2 L Platelet: 252 Neutrophil %: 82.7 H Glucose Level: 143 H Sodium Level: 139 Potassium Level: 4.6 BUN: 31.0 H Creatinine Lvl (s): 1.25 H EKG No qualifying data available. Assessment/Plan Intertrochanteric fracture of right hip Postoperative day #2 from a right cephalomedullary nail -PT/OT: To continue working with the patient -Eliquis for DVT prophylaxis -Post op Hgb is 7 -Maintain dressing, reinforce as needed. May change if oversaturated -Medical management per hospitalist service -Case management consulted for discharge planning -We will discuss with attending, Dr. Molina Type 2 diabetes mellitus Digitally Signed by AC HIGH DO on 12/25/2022 06:10 AM [facility] [id number] Orthopaedic surgery Progress note Date of Service 12-25-2022 Chief Complaint Postop day 2 from right cephalomedullary nail Subjective Patient was seen and examined at bedside this morning. Patient was resting comfortably upon my arrival. Patient reports she has been doing well, however has not ambulated with physical therapy yet. She reports some pain in her hip, however it is not unbearable. Patient has been eating and drinking without issues following surgery. Has no other needs at this time. Reports no nausea, vomiting, diarrhea, chest pain, shortness of breath. Objective Vitals and Measurements T: 36.4 C (Axillary) TMIN: 36.4 C (Axillary) TMAX: 37.2 C (Oral) HR: 58 RR: 18 BP: 110/59 SpO2: 98% Intake and Output 7AM Yesterday to 7AM Today Intake and Output (Last 24 hours) Intake Oral Intake 1180.00 Administration Information 800.00 Output Urine Voided 350.00 Urinary Catheter Output: 750.00 Stool Count 0.00 Total Summary Total Intake 1980.00 Total Output 1100.00 Fluid Balance 880.00 Physical Exam General: NAD, A&Ox3 HEENT: normocephalic, atraumatic, EOMI intact CV: pulses regular throughout, brisk cap refill throughout, Pulm: normal work of breathing, equal chest rise bilaterally, no intercostal retractions or conversational dyspnea GI: abdomen is soft, nontender, nondistended, no rigidity or guarding Psych: calm and cooperative Right lower extremity -Dressing is clean dry and intact without signs of infection -Skin pink and well perfused -Sensation intact to light touch L3-S1 -Gross motor function intact to dorsi/plantarflexion of ankle and toes -DP, TP pulses palpable -Compartments are soft and compressible -No calf tenderness Weight Dosing Weight: 89.6 kg (12/23/22) Dosing Weight: 89.6 kg (12/22/22) Medications Medications (25) Active Scheduled: (10) acetaminophen 325 mg Tablet 650 mg 2 tab(s), Oral, QID amLODIPine 10 mg tablet 10 mg 1 tab(s), Oral, qDay diltiazem 240 mg/24 hours ER capsule 240 mg 1 cap(s), Oral, qDay furosemide 20 mg tablet 20 mg 1 tab(s), Oral, qDay insulin lispro 100 units/mL Soln (3 mL) Give 0-5 units/dose, Subcutaneous, TIDAC metoprolol tartrate 100 mg tablet 100 mg 1 tab(s), Oral, BID multivitamin tablet 1 tab(s), Oral, qDay mupirocin 2% Ointment 22 Gram(s) tube 1 alfonzo, Nostril, each, BID oxybutynin 5 mg ER tablet 15 mg 3 tab(s), Oral, BID sertraline 100 mg tablet 100 mg 1 tab(s), Oral, qDay Continuous: (0) PRN: (15) acetaminophen 325 mg Tablet 650 mg 2 tab(s), Oral, q4h acetaminophen 325 mg Tablet 650 mg 2 tab(s), Oral, q4h acetaminophen-HYDROcodone 325-5 mg tablet 1 tab(s), Oral, q4h albuterol - ipratropium 2.5 mg-0.5 mg/3 mL Inhal Laquita UD 3 mL, Inhalation, q4hRT diphenhydramine 25 mg tablet 25 mg 1 tab(s), Oral, qHS docusate sodium 100 mg Capsule 100 mg 1 cap(s), Oral, BID hydromorphone 1 mg/mL (1mL) INJ 1 mg 1 mL, IV Push, q3h ibuprofen 400 mg tablet 400 mg 1 tab(s), Oral, q6h morphine 2 mg/mL 1 mL syringe 2 mg 1 mL, IV Push, q3h ondansetron 2 mg/ 1 mL 2 mL INJ 4 mg 2 mL, IV Push, q4h ondansetron 4 mg DIS tablet 4 mg 1 tab(s), Oral, q6h oxycodone 5 mg tablet (immediate release) 5 mg 1 tab(s), Oral, q4h polyethylene glycol 3350 - UD packet 17 gram(s) 15 mL, Oral, qDay tramadol 50 mg Tablet 50 mg 1 tab(s), Oral, q4h tramadol 50 mg Tablet 100 mg 2 tab(s), Oral, q6h Lab Results 12/24 20:26 Hgb: 7.0 L Hct: 21.1 L 12/24 13:16 Hgb: 7.1 L Hct: 21.0 L 12/24 03:48 WBC: 12.1 H Hgb: 7.5 L Hct: 23.2 L Platelet: 252 Neutrophil %: 82.7 H Glucose Level: 143 H Sodium Level: 139 Potassium Level: 4.6 BUN: 31.0 H Creatinine Lvl (s): 1.25 H EKG No qualifying data available. Assessment/Plan Intertrochanteric fracture of right hip Postoperative day #2 from a right cephalomedullary nail -PT/OT: To continue working with the patient -Eliquis for DVT prophylaxis -Post op Hgb is 7 -Maintain dressing, reinforce as needed. May change if oversaturated -Medical management per hospitalist service -Case management consulted for discharge planning -We will discuss with attending, Dr. Molina Type 2 diabetes mellitus Digitally Signed by AC HIGH DO on 12/25/2022 06:10 AM [facility] [id number] Note ORIGINAL EXAMINATION: TWO XRAY VIEWS OF THE CHEST12/24/2022 10:51 am COMPARISON: 12/22/2022 HISTORY: ORDERING SYSTEM PROVIDED HISTORY: Reason for Exam: hypoxia FINDINGS: Enlargement of the cardiac silhouette noted.Lung volumes are low bibasilar atelectasis noted. Eventration of the right diaphragm seen. No pneumothorax. No large pleural effusion. No aggressive osseous lesions identified.Degenerative changes seen of the spine and shoulders. Fusion plate noted in the cervical spine. IMPRESSION: Low lung volumes with hypoventilatory change. Interpreted by: José Mckeon MD Preliminary Report By: José Mckeon MD Electronically signed By José Mckeon MD Dictated Date: 12/24/2022 10:53:18 AM Prelim Date: 12/24/2022 10:54:45 AM Sign Date: 12/24/2022 10:54:45 AM Ordering Provider: [facility]08-11-2023 Orthopaedic surgery Progress note Date of Service December 24, 2022 Subjective Patient seen and evaluated at bedside this morning. Patient doing well postoperatively. Primary complaint is pain but this is reasonably well controlled. Discussed with patient next steps in management and weightbearing status. Patient expressed understanding and is motivated to work with therapy. Objective Vitals and Measurements T: 36.9 C (Oral) TMIN: 35.93 C TMAX: 36.9 C (Temporal Artery) HR: 65 RR: 22 BP: 113/55 SpO2: 95% Intake and Output 7AM Yesterday to 7AM Today Intake and Output (Last 24 hours) Intake Administration Information 1400.00 Oral Intake 960.00 Output Urinary Catheter Output: 400.00 Intra-Op Urine Catheter 200.00 Intra-Op EBL 150.00 Stool Count 0.00 Total Summary Total Intake 2360.00 Total Output 750.00 Fluid Balance 1610.00 Physical Exam General: Age-appropriate female in no apparent distress. HEENT: Normocephalic, atraumatic. EOMI. Cardiac: Adequate peripheral perfusion Pulmonary: Nonlabored breathing on room air. Neuro: Alert and oriented, answers all questions appropriately Psychiatric: Appropriate mood and affect Musculoskeletal: Examination of the right lower extremity demonstrates no obvious deformity. There is expected tenderness to palpation about the hip. There is mild swelling present, no significant ecchymosis. Knee immobilizer is in place. Surgical dressings overlying lateral thigh are clean, dry, and intact. Trace strikethrough bleeding. Thigh and lower leg compartments are soft and compressible.Sensation is intact light touch in superficial peroneal, deep peroneal, saphenous, sural, and tibial nerve distributions. Motor grossly intact, fires GSC/TA and EHL/FHL. Dorsalis pedis pulse is palpable. Extremity is warm and well-perfused with brisk capillary refill, less than 2 seconds. Weight Dosing Weight: 89.6 kg (12/23/22) Dosing Weight: 89.6 kg (12/22/22) Medications Medications (27) Active Scheduled: (11) acetaminophen 325 mg Tablet 650 mg 2 tab(s), Oral, QID amLODIPine 10 mg tablet 10 mg 1 tab(s), Oral, qDay ceFAZolin syringe 2 gram(s) 20 mL, IV Push (INT), q8hr diltiazem 240 mg/24 hours ER capsule 240 mg 1 cap(s), Oral, qDay furosemide 20 mg tablet 20 mg 1 tab(s), Oral, qDay insulin lispro 100 units/mL Soln (3 mL) Give 0-5 units/dose, Subcutaneous, TIDAC metoprolol tartrate 100 mg tablet 100 mg 1 tab(s), Oral, BID multivitamin tablet 1 tab(s), Oral, qDay mupirocin 2% Ointment 22 Gram(s) tube 1 alfonzo, Nostril, each, BID oxybutynin 5 mg ER tablet 15 mg 3 tab(s), Oral, BID sertraline 100 mg tablet 100 mg 1 tab(s), Oral, qDay Continuous: (1) Lactated Ringers 1,000 mL 1,000 mL, Intravenous, 100 mL/hr PRN: (15) acetaminophen 325 mg Tablet 650 mg 2 tab(s), Oral, q4h acetaminophen 325 mg Tablet 650 mg 2 tab(s), Oral, q4h acetaminophen-HYDROcodone 325-5 mg tablet 1 tab(s), Oral, q4h albuterol - ipratropium 2.5 mg-0.5 mg/3 mL Inhal Laquita UD 3 mL, Inhalation, q4hRT diphenhydramine 25 mg tablet 25 mg 1 tab(s), Oral, qHS docusate sodium 100 mg Capsule 100 mg 1 cap(s), Oral, BID hydromorphone 1 mg/mL (1mL) INJ 1 mg 1 mL, IV Push, q3h ibuprofen 400 mg tablet 400 mg 1 tab(s), Oral, q6h morphine 2 mg/mL 1 mL syringe 2 mg 1 mL, IV Push, q3h ondansetron 2 mg/ 1 mL 2 mL INJ 4 mg 2 mL, IV Push, q4h ondansetron 4 mg DIS tablet 4 mg 1 tab(s), Oral, q6h oxycodone 5 mg tablet (immediate release) 5 mg 1 tab(s), Oral, q4h polyethylene glycol 3350 - UD packet 17 gram(s) 15 mL, Oral, qDay tramadol 50 mg Tablet 50 mg 1 tab(s), Oral, q4h tramadol 50 mg Tablet 100 mg 2 tab(s), Oral, q6h Lab Results 12/24 03:48 WBC: 12.1 H Hgb: 7.5 L Hct: 23.2 L Platelet: 252 Neutrophil %: 82.7 H Glucose Level: 143 H Sodium Level: 139 Potassium Level: 4.6 BUN: 31.0 H Creatinine Lvl (s): 1.25 H 12/23 05:32 WBC: 8.9 Hgb: 10.4 L Hct: 31.8 L Platelet: 239 Neutrophil %: 81.1 H Glucose Level: 171 H Sodium Level: 143 Potassium Level: 4.2 BUN: 23.0 H Creatinine Lvl (s): 0.83 EKG No qualifying data available. Assessment/Plan Acute hypoxemic respiratory failure Atrial fibrillation History of CVA in adulthood HTN (hypertension) Intertrochanteric fracture of right hip Ordered: acetaminophen-hydrocodone, Dose = 1 tab(s), Oral, q6h, PRN Pain, X 7 day(s), # 28 tab(s), 0 Refill(s), Post-op pain Intertrochanteric fracture of right hip, 89.6 Type 2 diabetes mellitus Ms. Ellis is a 72-year-old female who sustained a right intertrochanteric femur fracture status post ground-level fall. She is now s/p closed reduction cephalomedullary nail fixation on December 23, [address] Lubin. Today is postoperative day #1. Pain management as ordered, bias toward oral nonnarcotics when/if able Apply ice to operative sites to help with swelling/pain Activity: WBAT RLE Diet: Advance as tolerated, general Labs reviewed: H&H 7.5 and 23.2, respectively on 12/24; continue to monitor acute blood loss anemia Will order repeat labs for the afternoon Perioperative Ancef for infection prophylaxis Dressings to remain clean, dry, and intact Discontinue Butt catheter DVT prophylaxis: SCDs, IS, may resume prior to admission [place] PT/OT to evaluate and treat postop Disposition: pending clinical course, PT/OT recs; anticipate need for placement. Patient discussed with Dr. Lubin who agrees with above assessment and plan except as stated in addendum. Digitally Signed by MATTHEW UMAÑA MD on 12/24/2022 06:39 AM [id number] Orthopaedic surgery Progress note Date of Service December 24, 2022 Subjective Patient seen and evaluated at bedside this morning. Patient doing well postoperatively. Primary complaint is pain but this is reasonably well controlled. Discussed with patient next steps in management and weightbearing status. Patient expressed understanding and is motivated to work with therapy. Objective Vitals and Measurements T: 36.9 C (Oral) TMIN: 35.93 C TMAX: 36.9 C (Temporal Artery) HR: 65 RR: 22 BP: 113/55 SpO2: 95% Intake and Output 7AM Yesterday to 7AM Today Intake and Output (Last 24 hours) Intake Administration Information 1400.00 Oral Intake 960.00 Output Urinary Catheter Output: 400.00 Intra-Op Urine Catheter 200.00 Intra-Op EBL 150.00 Stool Count 0.00 Total Summary Total Intake 2360.00 Total Output 750.00 Fluid Balance 1610.00 Physical Exam General: Age-appropriate female in no apparent distress. HEENT: Normocephalic, atraumatic. EOMI. Cardiac: Adequate peripheral perfusion Pulmonary: Nonlabored breathing on room air. Neuro: Alert and oriented, answers all questions appropriately Psychiatric: Appropriate mood and affect Musculoskeletal: Examination of the right lower extremity demonstrates no obvious deformity. There is expected tenderness to palpation about the hip. There is mild swelling present, no significant ecchymosis. Knee immobilizer is in place. Surgical dressings overlying lateral thigh are clean, dry, and intact. Trace strikethrough bleeding. Thigh and lower leg compartments are soft and compressible.Sensation is intact light touch in superficial peroneal, deep peroneal, saphenous, sural, and tibial nerve distributions. Motor grossly intact, fires GSC/TA and EHL/FHL. Dorsalis pedis pulse is palpable. Extremity is warm and well-perfused with brisk capillary refill, less than 2 seconds. Weight Dosing Weight: 89.6 kg (12/23/22) Dosing Weight: 89.6 kg (12/22/22) Medications Medications (27) Active Scheduled: (11) acetaminophen 325 mg Tablet 650 mg 2 tab(s), Oral, QID amLODIPine 10 mg tablet 10 mg 1 tab(s), Oral, qDay ceFAZolin syringe 2 gram(s) 20 mL, IV Push (INT), q8hr diltiazem 240 mg/24 hours ER capsule 240 mg 1 cap(s), Oral, qDay furosemide 20 mg tablet 20 mg 1 tab(s), Oral, qDay insulin lispro 100 units/mL Soln (3 mL) Give 0-5 units/dose, Subcutaneous, TIDAC metoprolol tartrate 100 mg tablet 100 mg 1 tab(s), Oral, BID multivitamin tablet 1 tab(s), Oral, qDay mupirocin 2% Ointment 22 Gram(s) tube 1 alfonzo, Nostril, each, BID oxybutynin 5 mg ER tablet 15 mg 3 tab(s), Oral, BID sertraline 100 mg tablet 100 mg 1 tab(s), Oral, qDay Continuous: (1) Lactated Ringers 1,000 mL 1,000 mL, Intravenous, 100 mL/hr PRN: (15) acetaminophen 325 mg Tablet 650 mg 2 tab(s), Oral, q4h acetaminophen 325 mg Tablet 650 mg 2 tab(s), Oral, q4h acetaminophen-HYDROcodone 325-5 mg tablet 1 tab(s), Oral, q4h albuterol - ipratropium 2.5 mg-0.5 mg/3 mL Inhal Laquita UD 3 mL, Inhalation, q4hRT diphenhydramine 25 mg tablet 25 mg 1 tab(s), Oral, qHS docusate sodium 100 mg Capsule 100 mg 1 cap(s), Oral, BID hydromorphone 1 mg/mL (1mL) INJ 1 mg 1 mL, IV Push, q3h ibuprofen 400 mg tablet 400 mg 1 tab(s), Oral, q6h morphine 2 mg/mL 1 mL syringe 2 mg 1 mL, IV Push, q3h ondansetron 2 mg/ 1 mL 2 mL INJ 4 mg 2 mL, IV Push, q4h ondansetron 4 mg DIS tablet 4 mg 1 tab(s), Oral, q6h oxycodone 5 mg tablet (immediate release) 5 mg 1 tab(s), Oral, q4h polyethylene glycol 3350 - UD packet 17 gram(s) 15 mL, Oral, qDay tramadol 50 mg Tablet 50 mg 1 tab(s), Oral, q4h tramadol 50 mg Tablet 100 mg 2 tab(s), Oral, q6h Lab Results 12/24 03:48 WBC: 12.1 H Hgb: 7.5 L Hct: 23.2 L Platelet: 252 Neutrophil %: 82.7 H Glucose Level: 143 H Sodium Level: 139 Potassium Level: 4.6 BUN: 31.0 H Creatinine Lvl (s): 1.25 H 12/23 05:32 WBC: 8.9 Hgb: 10.4 L Hct: 31.8 L Platelet: 239 Neutrophil %: 81.1 H Glucose Level: 171 H Sodium Level: 143 Potassium Level: 4.2 BUN: 23.0 H Creatinine Lvl (s): 0.83 EKG No qualifying data available. Assessment/Plan Acute hypoxemic respiratory failure Atrial fibrillation History of CVA in adulthood HTN (hypertension) Intertrochanteric fracture of right hip Ordered: acetaminophen-hydrocodone, Dose = 1 tab(s), Oral, q6h, PRN Pain, X 7 day(s), # 28 tab(s), 0 Refill(s), Post-op pain Intertrochanteric fracture of right hip, 89.6 Type 2 diabetes mellitus Ms. Ellis is a 72-year-old female who sustained a right intertrochanteric femur fracture status post ground-level fall. She is now s/p closed reduction cephalomedullary nail fixation on December 23, [address] Lubin. Today is postoperative day #1. Pain management as ordered, bias toward oral nonnarcotics when/if able Apply ice to operative sites to help with swelling/pain Activity: WBAT RLE Diet: Advance as tolerated, general Labs reviewed: H&H 7.5 and 23.2, respectively on 12/24; continue to monitor acute blood loss anemia Will order repeat labs for the afternoon Perioperative Ancef for infection prophylaxis Dressings to remain clean, dry, and intact Discontinue Butt catheter DVT prophylaxis: SCDs, IS, may resume prior to admission Eliquis PT/OT to evaluate and treat postop Disposition: pending clinical course, PT/OT recs; anticipate need for placement. Patient discussed with Dr. Lubin who agrees with above assessment and plan except as stated in addendum. Digitally Signed by MATTHEW UMAÑA MD on 12/24/2022 06:39 AM [facility] [id number] Anesthesiology Consult note Patient: JOSELINE ELLIS Age: 72 years Sex: Female : 1950 Associated Diagnoses: None Author: CARLITOS MOTT DO Postoperative Information Post Operative Info: Post op day: Post Anesthesia Care Unit. Patient location: PACU. Assessment Postanesthesia assessment Vitals. Mental status: at preoperative baseline. Respiratory function: respirations are non-labored. Respiratory support: oxygen delivery method via nasal cannula. CV function: stable. Cardiovascular support: none. Pain: satisfactory. Nausea status: satisfactory. Postoperative hydration status: within normal limits. Notes: Patient sufficiently recovered from anesthesia to participate in the evaluation. No follow-up needed. No post-anesthesia complications.. Digitally Signed by CARLITOS MOTT DO on 12/23/2022 02:33 PM [facility] [id number] Note ORIGINAL EXAMINATION: SPOT FLUOROSCOPIC IMAGES 12/23/2022 11:23 am TECHNIQUE: Fluoroscopy was provided by the radiology department for procedure. Radiologist was not present during examination. FLUOROSCOPY DOSE AND TYPE: Radiation Exposure Index: 83.57 mGy air kerma. 14 intraoperative images obtained. Fluoroscopy time was 3.58 minutes, COMPARISON: None HISTORY: ORDERING SYSTEM PROVIDED HISTORY: Reason for Exam: rt hip fx Intraprocedural imaging. FINDINGS: Images show open repair of the intertrochanteric and subtrochanteric femoral fracture. IMPRESSION: Intraprocedural fluoroscopic spot images as above. See separate procedure report for more information. Interpreted by: José Mckeon MD Preliminary Report By: José Mckeon MD Electronically signed By José Mckeon MD Dictated Date: 12/24/2022 8:13:14 AM Prelim Date: 12/24/2022 8:15:41 AM Sign Date: 12/24/2022 8:15:41 AM Ordering Provider: JONH LUBINMer[facility] [id number] Orthopaedic surgery Consult note Date of Service 12/23/2022 Reason for Consultation Right intertrochanteric fracture History of Present Illness 72 yo F with PMH A-fib (on eliquis), CVA presents with R IT fx following mechanical ground level fall at home. Denies other injuries sustained in the event. Denies new or worsening paresthesias, weakness. Denies CP, SOB, other new or worsening orthoepdic complaints. States last dose of eliquis was yesterday morning. Patient lives with her nephew and normally ambulates with a walker. She has an old fracture of her R elbow treated by Drs. Guy and Girish. Review of Systems See above. Physical Exam Vitals and Measurements T: 36.4 C (Oral) HR: 71 RR: 20 BP: 162/69 SpO2: 93% WT: 89.6 kg Weight Dosing Weight: 89.6 kg (12/22/22) General: -Constitutional: Elderly, obese female lying in bed in moderate pain -Pulm: normal work of breathing, no intercostal retractions or conversational dyspnea -Neuro: conversational, opens eyes, responds to commands -No SCDs present. Patient has wound care dressings placed on bilateral lower extremities. 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 Right lower Extremity: -No mechanical block with range of motion of the ankle. -Superficial peroneal, deep peroneal, tibial nerve motor intact distally -SILT sural, superficial peroneal, deep peroneal, saphenous, tibial nerve distributions distally -DP/PT pulses palpable, brisk capillary refill to all digits Lab Results No 36 Hour Lab Data Imaging Results and Diagnostics XR's of the R hip, knee, and elbow performed at [place] and reviewed. Demonstates a comminuted R IT fx with subtroch extension along the medial calcar. No obvious injury to the femoral neck or acetabulum. Elbow XR's demonstrate evidence of prior fracture, no acute injury noted. Assessment/Plan Fall Hip injury 72 yo F with PMH A-fib (on Eliquis) presents with R IT fx -Weight bearing: Bedrest -Added on to the OR schedule for cephalomedullary nailing of the right hip with Dr. Lubin today -Consent obtained -NPO -Chemical anticoagulation should be suspended in preparation of the OR -DVT prophylaxis with SCDs -Preoperative labs ordered. -EKG and CXR ordered -Pre-operative antibiotics ordered to the OR -Medical service admission for management of medical comorbidities and surgical clearance documentation. Anesthesia consult also placed -Discussed with attending Problem List/Past Medical History Ongoing No qualifying data Historical No qualifying data Procedure/Surgical History No qualifying data available. Medications Inpatient Bolus NS 1000 mL, 1000 mL, IV Bolus, Once Dilaudid, 0.5 mg= 0.5 mL, IV Push, q2h, PRN Dilaudid, 1 mg= 1 mL, IV Push, q2h, PRN DuoNeb, 3 mL, Inhalation, q4hRT, PRN Kefzol, 2 gram(s)= 20 mL, IV Push (INT), PREOP pharm LR 1,000 mL, 1000 mL, Intravenous LR 1,000 mL, 1000 mL, Intravenous mupirocin 2% topical ointment, 1 alfonzo, Nostril, each, BID Tylenol, 650 mg= 2 tab(s), Oral, q4h, PRN Zofran, 4 mg= 2 mL, IV Push, q4h, PRN Home acetaminophen amiodarone 200 mg oral tablet, 200 mg= 1 tab(s), Oral, qDay amLODIPine 10 mg oral tablet apixaban, Oral, BID Aspirin Enteric Coated 81 mg oral delayed release tablet, 81 mg= 1 tab(s), Oral, qDay cyclobenzaprine 10 mg oral tablet, 10 mg= 1 tab(s), Oral, TID, PRN furosemide 40 mg oral tablet, 40 mg= 1 tab(s), Oral, qDay glimepiride 4 mg oral tablet, 4 mg= 1 tab(s), Oral, qDay losartan 50 mg oral tablet, 50 mg= 1 tab(s), Oral, BID melatonin, qHS metFORMIN 1000 mg oral tablet, 1000 mg= 1 tab(s), Oral, BID metoprolol tartrate 25 mg oral tablet, 25 mg= 1 tab(s), Oral, BID mineral oil, Once Mucinex 600 mg oral tablet, extended release, 600 mg= 1 tab(s), Oral, q12h nystatin, Oral oxybutynin 10 mg/24 hr oral tablet, extended release, 10 mg= 1 tab(s), Oral, qDay sertraline 100 mg oral tablet, 100 mg= 1 tab(s), Oral, Daily simvastatin 20 mg oral tablet, 20 mg= 1 tab(s), Oral, qHS SITagliptin 100 mg oral tablet, 100 mg= 1 tab(s), Oral, qDay Allergies Monopril pioglitazone Family History Family history is unknown Immunizations No qualifying data available. Digitally Signed by JOSÉ INIGUEZ MD on 12/23/2022 05:48 AM [facility] [id number] Anesthesiology Consult note Patient: JOSELINE ELLIS Age: 72 years Sex: Female : 1950 Associated Diagnoses: None Author: GEOFFREY KERN MD Preoperative Information > 8 hours Anesthesia history Patient's history: negative. Health Status Allergies: Allergic Reactions (Selected) Severity Not Documented Monopril- No reactions were documented. Pioglitazone- No reactions were documented., Allergies (2) ActiveReaction MonoprilNone Documented pioglitazoneNone Documented Current medications: (Selected) Inpatient Medications Ordered Bolus NS 1000 mL: 1,000 mL, IV Bolus, Once Dilaudid: 0.5 mg, 0.5 mL, IV Push, q2h, PRN: Pain, scale 4-6 Dilaudid: 1 mg, 1 mL, IV Push, q2h, PRN: Pain, scale 7-10 DuoNeb: 3 mL, Inhalation, q4hRT, PRN: Shortness of breath or wheezing Kefzol: 2 gram(s), 20 mL, 240 mL/hr, IV Push (INT), PREOP pharm LR 1,000 mL: 100 mL/hr, Intravenous LR 1,000 mL: 75 mL/hr, Intravenous Metoprolol Tartrate 100 mg oral tablet: 100 mg, 1 tab(s), Oral, BID Multivitamin: 1 tab(s), Oral, qDay Tylenol: 650 mg, 2 tab(s), Oral, q4h, PRN: Pain, scale 1-3 Zofran: 4 mg, 2 mL, IV Push, q4h, PRN: Nausea/Vomiting amLODIPine: 10 mg, 1 tab(s), Oral, qDay dilTIAZem 240 mg/24 hours oral capsule, extended release: 240 mg, 1 cap(s), Oral, qDay furosemide: 20 mg, 1 tab(s), Oral, qDay mupirocin 2% topical ointment: 1 alfonzo, Nostril, each, BID oxybutynin 15 mg/24 hr oral tablet, extended release: 15 mg, 3 tab(s), Oral, BID sertraline: 100 mg, 1 tab(s), Oral, qDay Documented Medications Documented DilTIAZem (Eqv-Cardizem CD) 240 mg/24 hours oral capsule, extended release: 240 mg, 1 cap(s), Oral,qDay Eliquis 5 mg oral tablet: 5 mg, 1 tab(s), Oral, BID Metoprolol Tartrate 100 mg oral tablet: 100 mg, 1 tab(s), Oral, BID Multivitamin: 1 tab(s), Oral, qDay acetaminophen 500 mg oral tablet: 1,000 mg, 2 tab(s), Oral, qDay, PRN: as needed for pain amLODIPine 10 mg oral tablet: 10 mg, 1 tab(s), Oral, qDay atorvastatin 20 mg oral tablet: 20 mg, 1 tab(s), Oral, qDay furosemide 20 mg oral tablet: 20 mg, 1 tab(s), Oral, qDay glimepiride 4 mg oral tablet: 4 mg, 1 tab(s), Oral, BID metFORMIN 1000 mg oral tablet (IR): 1,000 mg, 1 tab(s), Oral, BID oxybutynin 15 mg/24 hr oral tablet, extended release: 15 mg, 1 tab(s), Oral, BID sertraline 100 mg oral tablet: 100 mg, 1 tab(s), Oral, qDay, Medications (16) Active Scheduled: (9) amLODIPine 10 mg tablet 10 mg 1 tab(s), Oral, qDay ceFAZolin syringe 2 gram(s) 20 mL, IV Push (INT), PREOP pharm diltiazem 240 mg/24 hours ER capsule 240 mg 1 cap(s), Oral, qDay furosemide 20 mg tablet 20 mg 1 tab(s), Oral, qDay metoprolol tartrate 100 mg tablet 100 mg 1 tab(s), Oral, BID multivitamin tablet 1 tab(s), Oral, qDay mupirocin 2% Ointment 22 Gram(s) tube 1 alfonzo, Nostril, each, BID oxybutynin 5 mg ER tablet 15 mg 3 tab(s), Oral, BID sertraline 100 mg tablet 100 mg 1 tab(s), Oral, qDay Continuous: (2) Lactated Ringers 1,000 mL 1,000 mL, Intravenous, 75 mL/hr Lactated Ringers 1,000 mL 1,000 mL, Intravenous, 100 mL/hr PRN: (5) acetaminophen 325 mg Tablet 650 mg 2 tab(s), Oral, q4h albuterol - ipratropium 2.5 mg-0.5 mg/3 mL Inhal Laquita UD 3 mL, Inhalation, q4hRT HYDROmorphone 0.5 mg/0.5 mL PF syringe 0.5 mg 0.5 mL, IV Push, q2h hydromorphone 1 mg/mL (1mL) INJ 1 mg 1 mL, IV Push, q2h ondansetron 2 mg/ 1 mL 2 mL INJ 4 mg 2 mL, IV Push, q4h Problem list: Active Problems (1) Leg swelling Histories Past Medical History: No active or resolved past medical history items have been selected or recorded. Procedure history: No active procedure history items have been selected or recorded. Social History Social & Psychosocial Habits No Data Available . Physical Examination Measurements from flowsheet : Measurements 12/23/2022 5:08 EDT Height 155.0 cm Height in inches 61 inch(es) Admission Weight 89.6 kg Weight Lbs 197.1 lb [place] Body Weight 47.85 kg BSA Admission 1.88 Body Mass Index 37.29 kg/m2 12/22/2022 20:30 EDT Admission Weight 89.6 kg General: Alert and oriented, No acute distress. Airway: Mallampati classification: II (soft palate, fauces, uvula visible). Head: Normocephalic, Atraumatic. Dentition Evaluation: Intact, Own teeth. Respiratory: Respirations are non-labored, on NC O2. Cardiovascular: Normal rate. Heart Sounds: Normal. Neurologic: Alert, Oriented. Review / Management Documentation reviewed: Current records, Reviewed prior records. Assessment and Plan [place] [employer] (ASA) physical status classification: Class III. H/o htn, hld, paroxysmal atrial fib, DM, LEIGH ANN. Acute trauma with right femur fracture. ANemia, hgb 10 Anesthetic Preoperative Plan Anesthetic technique: General. Induction: intravenously. Maintenance airway: Oral endotracheal tube. Postoperative pain management: Per surgeon. Risks discussed: nausea, vomiting, headache, sore throat, dental injury, hypotension, allergic reaction, serious complications. Informed consent: signed by patient. Digitally Signed by GEOFFREY KERN MD on 12/23/2022 08:25 AM [facility] [id number] Hospital Discharge instructions Follow Up Care 12/22/2022 20:31:14 With:[facility] [phone] Address:Unknown When:1-2 days With:BERNIE REAGAN MD Address: [address] [place] [address] [phone] When:2-4 days With:JONH LUBIN DO, Orthopedic Address: [address] [place] [address]- When:01/11/2023 14:00:00 Comments:PLEASE ARRIVE 15 MINUTES EARLY [facility] 08-09-2023 History and physical note Date of Service 12/22/2022 Chief Complaint Fall , Hip Pain History of Present Illness 72 y F w/a PMH consistent with hx of stroke, atrial fibrillation, HTN, HLP, T2DM who presents aftera mechanical fall sustained at her home today. She was ambulating to her kitchen, when she pivoted and fell. She ambulates with the assistance of a walker with wheels. Is on anticoagulation for AF. Denies LOC or hitting her head. Denies CP, palpitations before the event. In ED, CBC with Hgb of 11.1. CMP with sCr: 1.16. CXR without acute process. XR right hip with right intertrochanteric fracture. EKG in NSR. On exam, patient resting comfortably. A&Ox4. Denies active CP, SOB, NVD, abd pain. Hip pain is 8/10 but tolerable per patient at this time. Vital signs are stable. Review of Systems Complete detailed review of systems obtained and all pertinent positives and negatives are noted inthe history of present illness. Physical Exam Vitals and Measurements T: 36.4 C (Oral) HR: 71 RR: 20 BP: 162/69 SpO2: 93% WT: 89.6 kg Weight Dosing Weight: 89.6 kg (12/22/22) Physical Examination General: No apparent distress. Alert and appropriate. HEENT: NCAT EOMI Neck: Supple. No appreciable elevation in JVP. Cardiovascular: S1 S2 normal. No extra-audible heart tones. Respiratory: Bilaterally clear breath sounds with no crepitation or wheeze. Abdominal: Soft, nontender and nonrigid. No guarding. Bowel sounds present. Extremities: No edema. Adequate peripheral circulation. Neurological: Grossly intact without focal deficit. Cerebellar function preserved. Skin: Intact. Dry. No rash. Lab Results No 36 Hour Lab Data Imaging Results and Diagnostics IMPRESSION: XR Hip, Right Comminuted inter trochanteric femur neck fracture with superolateral migration and varus angulation. Reviewed EKG NSR - reviewed Assessment/Plan Right comminuted inter trochanteric femur neck fracture Right hip pain Mechanical fall Paroxysmal Afib HTN HLP T2DM Hx of stroke Admit patient for intertrochanteric hip fracture. NPO after midnight Hold anticoagulation PTOT consult ordered post op PRN dilaudid for pain control. PRN zofran for nausea control. CBC and BMP daily and replete electrolytes PRN Patient has T2DM not on insulin, Hx of stroke, and takes amio/DOAC for afib. She is a Class II RCRIrisk, but medically optimized and cleared to proceed for operative intervention. Continue home chronic medications 100 cc/hr MIV LR. Problem List/Past Medical History Ongoing No qualifying data Historical No qualifying data Procedure/Surgical History No qualifying data available. Medications Home Medications (19) Active acetaminophen amiodarone 200 mg oral tablet 200 mg = 1 tab(s), Oral, qDay amLODIPine 10 mg oral tablet apixaban , Oral, BID Aspirin Enteric Coated 81 mg oral delayed release tablet 81 mg = 1 tab(s), Oral, qDay cyclobenzaprine 10 mg oral tablet 10 mg = 1 tab(s), PRN, Oral, TID furosemide 40 mg oral tablet 40 mg = 1 tab(s), Oral, qDay glimepiride 4 mg oral tablet 4 mg = 1 tab(s), Oral, qDay losartan 50 mg oral tablet 50 mg = 1 tab(s), Oral, BID melatonin , qHS metFORMIN 1000 mg oral tablet 1,000 mg = 1 tab(s), Oral, BID metoprolol tartrate 25 mg oral tablet 25 mg = 1 tab(s), Oral, BID mineral oil , Once Mucinex 600 mg oral tablet, extended release 600 mg = 1 tab(s), Oral, q12h nystatin , Oral oxybutynin 10 mg/24 hr oral tablet, extended release 10 mg = 1 tab(s), Oral, qDay sertraline 100 mg oral tablet 100 mg = 1 tab(s), Oral, Daily simvastatin 20 mg oral tablet 20 mg = 1 tab(s), Oral, qHS SITagliptin 100 mg oral tablet 100 mg = 1 tab(s), Oral, qDay Allergies Monopril pioglitazone Family History Family history is unknown Immunizations No qualifying data available. Code Status Code Status - Ordered -- 12/22/22 20:57:00 EDT, Full Code, Constant Order Digitally Signed by JULIUS HERNANDES DO on 12/22/2022 09:58 PM [facility] [id number] Orthopaedic surgery Consult note Date of Service 12/23/2022 Reason for Consultation Right intertrochanteric fracture History of Present Illness 72 yo F with PMH A-fib (on eliquis), CVA presents with R IT fx following mechanical ground level fall at home. Denies other injuries sustained in the event. Denies new or worsening paresthesias, weakness. Denies CP, SOB, other new or worsening orthoepdic complaints. States last dose of eliquis was yesterday morning. Patient lives with her nephew and normally ambulates with a walker. She has an old fracture of her R elbow treated by Drs. Guy and Girish. Review of Systems See above. Physical Exam Vitals and Measurements T: 36.4 C (Oral) HR: 71 RR: 20 BP: 162/69 SpO2: 93% WT: 89.6 kg Weight Dosing Weight: 89.6 kg (12/22/22) General: -Constitutional: Elderly, obese female lying in bed in moderate pain -Pulm: normal work of breathing, no intercostal retractions or conversational dyspnea -Neuro: conversational, opens eyes, responds to commands -No SCDs present. Patient has wound care dressings placed on bilateral lower extremities. 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 Right lower Extremity: -No mechanical block with range of motion of the ankle. -Superficial peroneal, deep peroneal, tibial nerve motor intact distally -SILT sural, superficial peroneal, deep peroneal, saphenous, tibial nerve distributions distally -DP/PT pulses palpable, brisk capillary refill to all digits Lab Results No 36 Hour Lab Data Imaging Results and Diagnostics XR's of the R hip, knee, and elbow performed at [place] and reviewed. Demonstates a comminuted R IT fx with subtroch extension along the medial calcar. No obvious injury to the femoral neck or acetabulum. Elbow XR's demonstrate evidence of prior fracture, no acute injury noted. Assessment/Plan Fall Hip injury 72 yo F with PMH A-fib (on Eliquis) presents with R IT fx -Weight bearing: Bedrest -Added on to the OR schedule for cephalomedullary nailing of the right hip with Dr. Lubin today -Consent obtained -NPO -Chemical anticoagulation should be suspended in preparation of the OR -DVT prophylaxis with SCDs -Preoperative labs ordered. -EKG and CXR ordered -Pre-operative antibiotics ordered to the OR -Medical service admission for management of medical comorbidities and surgical clearance documentation. Anesthesia consult also placed -Discussed with attending Problem List/Past Medical History Ongoing No qualifying data Historical No qualifying data Procedure/Surgical History No qualifying data available. Medications Inpatient Bolus NS 1000 mL, 1000 mL, IV Bolus, Once Dilaudid, 0.5 mg= 0.5 mL, IV Push, q2h, PRN Dilaudid, 1 mg= 1 mL, IV Push, q2h, PRN DuoNeb, 3 mL, Inhalation, q4hRT, PRN Kefzol, 2 gram(s)= 20 mL, IV Push (INT), PREOP pharm LR 1,000 mL, 1000 mL, Intravenous LR 1,000 mL, 1000 mL, Intravenous mupirocin 2% topical ointment, 1 alfonzo, Nostril, each, BID Tylenol, 650 mg= 2 tab(s), Oral, q4h, PRN Zofran, 4 mg= 2 mL, IV Push, q4h, PRN Home acetaminophen amiodarone 200 mg oral tablet, 200 mg= 1 tab(s), Oral, qDay amLODIPine 10 mg oral tablet apixaban, Oral, BID Aspirin Enteric Coated 81 mg oral delayed release tablet, 81 mg= 1 tab(s), Oral, qDay cyclobenzaprine 10 mg oral tablet, 10 mg= 1 tab(s), Oral, TID, PRN furosemide 40 mg oral tablet, 40 mg= 1 tab(s), Oral, qDay glimepiride 4 mg oral tablet, 4 mg= 1 tab(s), Oral, qDay losartan 50 mg oral tablet, 50 mg= 1 tab(s), Oral, BID melatonin, qHS metFORMIN 1000 mg oral tablet, 1000 mg= 1 tab(s), Oral, BID metoprolol tartrate 25 mg oral tablet, 25 mg= 1 tab(s), Oral, BID mineral oil, Once Mucinex 600 mg oral tablet, extended release, 600 mg= 1 tab(s), Oral, q12h nystatin, Oral oxybutynin 10 mg/24 hr oral tablet, extended release, 10 mg= 1 tab(s), Oral, qDay sertraline 100 mg oral tablet, 100 mg= 1 tab(s), Oral, Daily simvastatin 20 mg oral tablet, 20 mg= 1 tab(s), Oral, qHS SITagliptin 100 mg oral tablet, 100 mg= 1 tab(s), Oral, qDay Allergies Monopril pioglitazone Family History Family history is unknown Immunizations No qualifying data available. Digitally Signed by JOSÉ INIGUEZ MD on 12/23/2022 05:48 AM [id number] Note ORIGINAL EXAMINATION: ONE XRAY VIEW OF THE CHEST12/22/2022 7:11 pm CHEST ONE VIEW AP/PA COMPARISON: None HISTORY: ORDERING SYSTEM PROVIDED HISTORY: Reason for Exam: pain; trauma patient FINDINGS: The cardiomediastinal contours are normal. The aorta is atherosclerotic. There is no focal consolidation, pleural effusion, or pneumothorax. No acute osseous abnormality. Surgical hardware seen in the cervical spine. There is a radiopaque metallic object over the right chest, which is probably a breast biopsy clip. IMPRESSION: No acute radiographic findings. Interpreted by: Felipe Dawkins MD Preliminary Report By: Felipe Dawkins MD Electronically signed By Felipe Dawkins MD Dictated Date: 12/22/2022 7:26:14 PM Prelim Date: 12/22/2022 7:29:33 PM Sign Date: 12/22/2022 7:29:33 PM Ordering Provider: [facility]08-09-2023 Note Sinus rhythm Baseline wander in lead(s) V6 Electronic Signature: GEARRD FITCH MD 12/22/2022 18:27:29[facility] 08-09-2023 Note ORIGINAL EXAMINATION: TWO XRAY VIEWS OF THE RIGHT KNEE 12/22/2022 6:07 pm COMPARISON: None. HISTORY: ORDERING SYSTEM PROVIDED HISTORY: Reason for Exam: pain FINDINGS: There is no acute fracture. The bones are in anatomic alignment. There are severe tricompartmental degenerative changes. There is no significant joint effusion. Vascular calcifications are noted. There is no radiopaque foreign body. IMPRESSION: No acute osseous abnormality. Severe degenerative changes. Interpreted by: Felipe Dawkins MD Preliminary Report By: Felipe Dawkins MD Electronically signed By Felipe Dawkins MD Dictated Date: 12/22/2022 6:44:04 PM Prelim Date: 12/22/2022 6:45:26 PM Sign Date: 12/22/2022 6:45:26 PM Ordering Provider: [facility]08-09-2023 Note ORIGINAL EXAMINATION: ONE XRAY VIEW OF THE PELVIS AND TWO XRAY VIEWS RIGHT HIP 12/22/2022 6:06 pm COMPARISON: None. HISTORY: ORDERING SYSTEM PROVIDED HISTORY: Reason for Exam: Right hip pain status post fall. FINDINGS: Probable comminuted inter trochanteric femur neck fracture. There is a displaced large fracture fragment involving lesser trochanter. Superolateral migration of distal fracture fragments with varus angulation of apex. Surrounding soft tissue swelling. No radiopaque foreign body. The pelvic ring is intact. Sacrum and sacral arcs are unremarkable. Varying degree of degenerative changes in the spine, sacroiliac and hip joints. Large fecal load in distal colon and rectum. Vascular calcifications. IMPRESSION: Comminuted inter trochanteric femur neck fracture with superolateral migration and varus angulation. I have personally reviewed the images of this examination and agree with the resident's findings and interpretation. Interpreted by: Felipe Dawkins MD Preliminary Report By: Giacomo May Electronically signed By Felipe Dawkins MD Dictated Date: 12/22/2022 6:35:27 PM Prelim Date: 12/22/2022 6:44:47 PM Sign Date: 12/22/2022 7:02:52 PM Ordering Provider: [facility]08-09-2023 Evaluation + Plan noteExtracted from: Title:History and Physical Author:JULIUS HERNANDES Date:12/22/22 Right comminuted inter troch anteric femur neck fracture Right hip pain Mechanical fall Paroxysmal Afib HTN HLP T2DM Hx of stroke Admit patient for intertrochanteric hip fracture. NPO after midnight Hold anticoagulation PTOT consult ordered post op PRN dilaudid for pain control. PRN zofran for nausea control. CBC and BMP daily and replete electrolytes PRN Patient has T2DM not on insulin, Hx of stroke, and takes amio/DOAC for afib. She is a Class II RCRI risk, but medically optimized and cleared to proceed for operative intervention. Continue home chronic medications 100 cc/hr MIV . [facility] 08-08-2023 History and physical note Author Mango Waddell [facility] December 21, 2022 10:10am Note Date/Time December 21, 2022 10: 10am [facility] [address] [place] [id number] H&P Exam - Wound Care 12/21/22 1001 MR#: [id number] Acct: [id number] Name: JOSELINE ELLIS Rep #:[id number] 3 : 1950 72 From: Mango Balbuena PCP: Dr. Bernie Reagan MD Status:R EG RCR Location: History of Present Illness Date of Service: 12/21/22 Chief Complaint: Multiple, small superficial ulcerations in the lower extremities bilaterally History of Wound: This 72-year-old white female who presented with bilateral lower extremity ulcerations. They are small in size, but multiple in number. They have been present for a lengthy period of time. 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 The patient has been using silver cell and Alberto wraps. The patient also experiences swelling and edema in her lower extremities. She sleeps in a bed at night. 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 She has been under the care of Dr. Kiran Wolff, plastic surgeon, in this regard. Her recent MRSA infection is said to have been her first and only history of MRSA infections. She underwent surgery on 07/12/22 for surgical preparation right long finger amputation stump ulcer with incision and drainage and excisional debridement MRSA abscess and partial ostectomy middle phalanx for osteomyelitis. Operative tissue cultures positive for Enterobacter cloacae complex and MRSA. Operative bone cultures positive for MRSA and MRSE. She was discharged home on 07/15/22 with a PICC line and IV Vancomycin and oral Cipro. She was seen by ID while hospitalized and was to follow up ID post-discharge. [facility], [facility] Medical History Abnormal mammogram of right breast Abscess of right middle finger Acute kidney injury Acute on chronic heart failure Alcohol use Anemia Anxiety Anxiety and depression Arthritis Atrial fib/flutter, transient Atrial fibrillation Back pain Bacteremia Bilateral leg ulcer Breast lump Burn injury of skin of finger Cardiology follow-up encounter Chronic anticoagulation Chronic back pain Chronic cough CKD (chronic kidney disease) COVID-19 vaccine series completed CPAP (continuous positive airway pressure) dependence CVA (cerebral vascular accident) Depression Depression with anxiety Diabetes mellitus Dietary restriction DKA (diabetic ketoacidoses) Elevated brain natriuretic peptide (BNP) level Essential hypertension Finger infection Flu vaccine need Former smoker Health care maintenance History of cerebrovascular accident History of echocardiogram History of edema History of stress test History of UTI Hyperlipidemia Hypertension Intertrigo Irregular heartbeat 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 MRSA infection 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 without evidence of necrosis Non-rheumatic mitral valve stenosis Nonrheumatic aortic (valve) stenosis Osteoarthritis Osteomyelitis of finger of right hand Osteoporosis Overactive bladder Pancreatitis Paroxysmal A-fib Paroxysmal atrial fibrillation Paroxysmal atrial fibrillation with RVR Post-menopausal Preoperative evaluation to rule out surgical contraindication Stage 3b chronic kidney disease (CKD) Subtherapeutic international normalized ratio (INR) Tachycardia Urinary incontinence, overflow Venous insufficiency Vision problems Walker as ambulation aid Weakness Home Medications acetaminophen 325 mg capsule 650 mg PO PRN PRN Pain 12/02/21 [History Last Taken 07/08/22] amlodipine 10 mg tablet 10 mg PO DAILY BP #90 tabs 09/07/22 [Rx Last Taken Unknown] ascorbic acid (vitamin C) 500 mg tablet (Vitamin C) 500 mg PO DAILY vitamin #90 tabs 09/07/22 [Rx Last Taken Unknown] aspirin 81 mg chewable tablet 81 mg PO BREAKFAST Heart #90 tabs 09/07/22 [Rx Last Taken Unknown] cholecalciferol (vitamin D3) 50 mcg (2,000 unit) capsule 50 mcg PO DAILY vitamin#90 caps 09/07/22 [Rx Last Taken Unknown] ferrous sulfate 325 mg (65 mg iron) tablet 325 mg PO DAILY Supplement #90 tabs 09/07/22 [Rx Last Taken Unknown] glimepiride 4 mg tablet 4 mg PO BID dm 3 months #180 tabs 09/07/22 [Rx Last Taken Unknown] metformin 1,000 mg tablet 1,000 mg PO BID DM #180 tabs 09/07/22 [Rx Last Taken Unknown] multivitamin 1 tab PO DAILY SUPPLEMENT #90 tabs 09/07/22 [Rx Last Taken Unknown] oxybutynin chloride 15 mg tablet,extended release 24 hr 15 mg PO BID bladder #180 tabs 09/07/22 [Rx Last Taken Unknown] sertraline 100 mg tablet (Zoloft) 100 mg PO DAILY anxiety #90 tabs 09/07/22 [Rx Last Taken Unknown] atorvastatin 20 mg tablet (Lipitor) 20 mg PO DAILY Check with primary doctor 09/09/22 [History Last Taken Unknown] diltiazem HCl 240 mg capsule,extended release 24 hr (Cardizem CD) 240 mg PO DAILY heart 09/09/22 [History Last Taken Unknown] WOUND CARE #1 ea 10/06/22 [Rx Last Taken Unknown] apixaban 5 mg tablet 5 mg PO BID blood thinner #180 tabs 10/15/22 [Rx Last Taken Unknown] nystatin 100,000 unit/gram topical powder 1 applic topical BID PRN Rash 10/26/22[History Last Taken Unknown] metoprolol tartrate 100 mg tablet 100 mg PO BID #60 tabs 11/18/22 [Rx Last Taken Unknown] furosemide 20 mg tablet 20 mg PO DAILY #90 tabs 11/22/22 [Rx Last Taken Unknown] Allergy/AdvReac Type Severity Reaction Status Date / Time fosinopril [From Monopril] Allergy Unknown Other Verified 11/12/22 13:47 pioglitazone AdvReac Other Verified 11/12/22 13:47 Family History Father Diabetes High cholesterol Heart disease Melanoma Hypertension Mother Heart disease Brother AIDS (acquired immune deficiency syndrome) Surgical History History of amputation of finger of right hand History of back surgery History of back surgery History of carpal tunnel release History of carpal tunnel release History of hand surgery History of hysterectomy History of hysterectomy History of left elbow replacement History of left elbow replacement History of surgical amputation of finger of right hand Hx of colonoscopy S/P hysterectomy S/P ORIF (open reduction internal fixation) fracture Status post surgical amputation of finger of right hand Social History household members: none Smoking Status: Never smoker how long ago did patient quit smokin years ago alcohol intake: current alcohol intake frequency: holidays/special occasions only substance use type: does not use what type of physical activity do you participate in: other details: aquasize Vital Signs Vital Signs Vital Signs: 12/21/22 09:38 Temperature 97.5 F L Temperature Source Temporal Pulse Rate 59 L Respiratory Rate 18 Blood Pressure 157/67 H Blood Pressure Mean 97 Blood Pressure Source Monitor Physical Exam Const alert, oriented x3, no apparent distress and well nourished Constitutional Narrative: The patient is mildly obese. General Appearance: cooperative, comfortable and well developed Orientation / Consciousness: awake, oriented to person, oriented to place and oriented to time HEENT normocephalic and head/scalp atraumatic Head and Scalp: normal to inspection, normocephalic and atraumatic External Ear: external ears normal Eyes PERRL and EOMs intact bilaterally General Eye: normal appearance of both eyes Resp normal respiratory effort, normal air movement, no retractions and no use of accessory muscles Effort and Inspection: able to speak in complete sentences Extremity no calf tenderness General Extremity: Negative for clubbing or cyanosis Skin Wound Narrative: Mild swelling and edema are noted in the patient's lower extremities bilaterally. There are multiple dry, punctate eschars in the right gaiter area. There are multiple small excoriations in the left gaiter area. Slight erythemais noted in the left gaiter area in association with superficial excoriations. This will bear serial monitoring, to determine whether there is an evolving cellulitis. Pedal pulses are strong by Doppler signal assessment. Neuro oriented x3, CN's II-XII intact bilaterally and moves all extremities Sensorium / Orientation: awake, alert, oriented to person, oriented to place andoriented to time Psych Appearance: grossly normal and appropriate Attitude: calm Activity / Motor Behavior: appropriate eye contact Speech: normal speech Mood & Affect: euthymic mood Thought Process: normal thought process Thought Content: normal thought content Attention / Concentration: attention grossly intact Debridement Note Debridement Note No debridement was completed: No debridement was completed today Post-Debridement Measurements and Additional Note: Post-Debridement Measurements/Treatment - Nurse 1 - General Ulcer Assessment Start: 12/21/22 09:38 Freq: Status: Active Protocol: DENG Activity Type Activity Date Activity User E-sign Co-sign Detail Recorded Client Recorded Date Recorded By Document 12/21/22 09:38 MELONIE [id number] 12/21/22 09:51 DL 12/21/22 09:38 WC - Today's Visit Information Type of service Follow-up Visit (Physician/PANTOGRAPH WATCHER ) Arrival Mode Ambulatory, Walker Transfer Assistance None Patient Identification Verified (Name & Yes ) Patient Requires Transmission-Based No Precautions Vital Signs Temperature (97.8 F-99.1 F) 97.5 F L Temperature Source Temporal Pulse Rate (60-100) 59 L Pulse Location Monitor Respiratory Rate (12-18) 18 Respiratory rate source Observation Blood Pressure (90/60-120/80) 157/67 H Blood Pressure Mean 97 Source Monitor History Since Last Visit- (Skip if this is Patient's initial visit) Have you changed medications since your No last visit? Any new allergies or adverse reactions No Had a fall/change in ADL's that may No increase risk of falls Signs or symptoms of abuse and/or No neglect since last visit Have you been in the hospital since your No last visit? Has dressing in place as prescribed No Has compression in place as prescribed No Has offloadiing in place as prescribed N/A Experienced any changes in pain level or No management Pain Scale: 0-10 Numeric Is Patient Pain Free? Yes KATELYNN Zambrano Nurse 1 - General Ulcer Measurement Start: 12/21/22 09:38 Freq: Status: Active Protocol: Activity Type Activity Date Activity User E-sign Co-sign Detail Recorded Client Recorded Date Recorded By Document 12/21/22 09:38 DL [id number] 12/21/22 09:51 DL 12/21/22 09:38 Wound Center Nurse 1 #7 L Med LE Cluster -Current Size (cm) - Length 9.5 -Current Size (cm) - Width 4.1 -Current Size (cm) - Depth 0.1 -Total Square Cm 38.95 -Photo Taken Yes -Exudate Amt Small -Exudate Type Serosanguineous -Wound Margin Indistinct, Non -Visible -Granulation Amt Large (67-100%) -Granulation Quality Alta -Necrosis Amt Small (1-33%) -Necrotic Tissue Type Adherent Slough -Structure Exposed N/A -Texture (Jessica-wound Skin Appearance) Scarring -Moisture (Jessica-wound Skin Appearance) Dry/Scaly -Color (Jessica-wound Skin Appearance) Hemosiderin Staining -Temperature (Jessica-wound Skin No Abnormality Appearance) (Pt Warm) -Tenderness on Palpation (Jessica-wound No Skin Appearance) -Ulcer Cleansing Soap and Water -Foul Odor after Cleansing No -Anesthetic Used 4% Lidocaine Solution #6 L Nolasco Cluster -Current Size (cm) - Length 15 -Current Size (cm) - Width 6 -Current Size (cm) - Depth 0.1 -Total Square Cm 90 -Photo Taken Yes -Exudate Amt None Present -Wound Margin Distinct, Outline Attached -Granulation Amt Large (67-100%) -Granulation Quality Alta,Red -Necrosis Amt None Present (0 %) -Structure Exposed N/A -Texture (Jessica-wound Skin Appearance) Scarring -Moisture (Jessica-wound Skin Appearance) Dry/Scaly -Color (Jessica-wound Skin Appearance) Erythema -Tenderness on Palpation (Jessica-wound No Skin Appearance) -Ulcer Cleansing Soap and Water -Anesthetic Used 4% Lidocaine Solution, Cetacaine Right Calf (cm) 35.5 Right Ankle (cm) 25.5 Left Calf (cm) 39.1 Left Ankle (cm) 24 Assessment/Plan Assessment/Plan (1) Bilateral leg ulcer: CODE(S): L97.919 - Non-pressure chronic ulcer of unspecified part of rightlower leg with unspecified severity; L97.929 - Non-pressure chronic ulcer of unspecified part of left lower leg with unspecified severity QUALIFIERS: Non-pressure ulcer stage: with fat layer exposed Qualified Code(s): L97.912 - Non-pressure chronic ulcer of unspecified part of right lower leg with fat layer exposed; L97.922 - Non-pressure chronic ulcer of unspecified part of left lower leg with fat layer exposed (2) CKD (chronic kidney disease): CODE(S): N18.9 - Chronic kidney disease, unspecified (3) Acute on chronic heart failure: CODE(S): I50.9 - Heart failure, unspecified (4) Paroxysmal A-fib: CODE(S): I48.0 - Paroxysmal atrial fibrillation (5) Chronic anticoagulation: CODE(S): Z79.01 - 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 (6) Hyperlipidemia: CODE(S): E78.5 - Hyperlipidemia, unspecified (7) Essential hypertension: CODE(S): I10 - Essential (primary) hypertension (8) Non-rheumatic mitral valve stenosis: CODE(S): I34.2 - Nonrheumatic mitral (valve) stenosis (9) Nonrheumatic aortic (valve) stenosis: CODE(S): I35.0 - Nonrheumatic aortic (valve) stenosis (10) History of cerebrovascular accident: CODE(S): Z86.73 - Personal history of transient ischemic attack (TIA), andcerebral infarction without residual deficits (11) Pulmonary hypertension: CODE(S): I27.20 - Pulmonary hypertension, unspecified (12) Renal insufficiency: CODE(S): N28.9 - Disorder of kidney and ureter, unspecified (13) Type II diabetes mellitus: CODE(S): E11.9 - Type 2 diabetes mellitus without complications (14) Obstructive sleep apnea: CODE(S): G47.33 - Obstructive sleep apnea (adult) (pediatric) (15) Urinary incontinence, overflow: CODE(S): N39.490 - Overflow incontinence (16) Hypertriglyceridemia: CODE(S): E78.1 - Pure hyperglyceridemia (17) Failure to thrive: (18) Venous insufficiency: CODE(S): I87.2 - Venous insufficiency (chronic) (peripheral) (19) Osteoporosis: CODE(S): M81.0 - Age-related osteoporosis without current pathological fracture QUALIFIERS: Osteoporosis type: age-related Presence of current pathological fracture: without current pathological fracture Qualified Code(s):M81.0 - Age-related osteoporosis without current pathological fracture (20) Debility: CODE(S): R53.81 - Other malaise (21) History of back surgery: CODE(S): Z98.890 - Other specified postprocedural states (22) History of carpal tunnel release: CODE(S): Z98.890 - Other specified postprocedural states (23) History of hysterectomy: CODE(S): Z90.710 - Acquired absence of both cervix and uterus (24) History of left elbow replacement: CODE(S): Z96.622 - Presence of left artificial elbow joint (25) History of amputation of finger of right hand: CODE(S): Z89.021 - Acquired absence of right finger(s) PLAN: Plan This is a 72-year-old diabetic female with multiple pre-existing medical problems, which are listed herein. She initially presented with multiple small,superficial ulcerations and eschars in her lower extremities bilaterally. 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 Picking and scratching at her ulcerations was strongly discouraged. The patient has been urged to elevate her lower extremities is much as possible. Elevation is to be to heart level, or higher. She is to continue sleeping on aflat mattress at night. Elevation is to occur during daytime hours as well. Prolonged idle sitting has been discouraged. Activity has been encouraged. Yodithas been treated for MRSA infection in the recent past. Therefore, we prescribed mupirocin ointment 2% for intranasal use. It was applied intranasally twice daily for 5 days. In addition, the patient was instructed toobtain Hibiclens 4% soap, and to shower daily using Hibiclens for a total of 7 days. Several weeks ago, the patient was noted to be completely healed, and wasdischarged. However, she returned with multiple new eschars and ulcerations in both lower extremities. On the right, there are multiple, small dry eschars. On the left, eschars are present, with several small superficial excoriations. Given the patient's propensity to pick and scratch, we are to once again reinitiate wraps to the lower extremities as had been implemented previously. A3M 2 layer compression wrap will be applied to the right lower extremity. A similar wrap will be applied to the left lower extremity, with Promogran topically on the superficial excoriations. These 2 layer compression wraps willbe changed twice weekly. The patient is to return in 1 week for reassessment. It is hoped that the presence of compression wraps on the lower extremities on acontinual basis will prevent the patient from scratching and picking and perpetuating her wounds. A prescription had been provided for graduated compression stockings of 15 to 20 mmHg compression, to be worn on a daily basis. However, the patient never purchased the compression stockings. She has been encouraged to follow-up with her fold skiver, Dr. Wayne Spencer, relative to a callus on her right great toe, which shows no sign of infection. Total time: 28 minutes 12/21/22 1010 <Electronically signed by Mango Waddell MD> Cosigner Signature (if applicable): CC: ~ Signed [facility] Work Phone: [phone] History and physical note Author Mango Waddell [facility] November 09, 2022 2:32pm Note Date/Time November 09, 2022 2:32 pm [facility] [address] [place] [id number] H&P Exam - Wound Care 11/09/22 1425 MR#: [id number] Acct: [id number] Name: JOSELINE ELLIS Rep #:[id number] : 1950 72 From: Mango Balbuena PCP: Dr. Bernie Reagan MD Status:R EG RCR Location: History of Present Illness Date of Service: 11/09/22 Chief Complaint: Multiple, small superficial ulcerations in the lower extremities bilaterally History of Wound: This 72-year-old white female who presented with bilateral lower extremity ulcerations. They are small in size, but multiple in number. They have been present for a lengthy period of time. 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 The patient has been using silver cell and Alberto wraps. The patient also experiences swelling and edema in her lower extremities. She sleeps in a bed at night. 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 She has been under the care of Dr. Kiran Wolff, plastic surgeon, in this regard. Her recent MRSA infection is said to have been her first and only history of MRSA infections. She underwent surgery on 07/12/22 for surgical preparation right long finger amputation stump ulcer with incision and drainage and excisional debridement MRSA abscess and partial ostectomy middle phalanx for osteomyelitis. Operative tissue cultures positive for Enterobacter cloacae complex and MRSA. Operative bone cultures positive for MRSA and MRSE. She was discharged home on 07/15/22 with a PICC line and IV Vancomycin and oral Cipro. She was seen by ID while hospitalized and was to follow up ID post-discharge. FORMERLY [facility], [facility] Medical History Abnormal mammogram of right breast Abscess of right middle finger Acute kidney injury Acute on chronic heart failure Alcohol use Anemia Anxiety Anxiety and depression Arthritis Atrial fib/flutter, transient Atrial fibrillation Back pain Bacteremia Bilateral leg ulcer Breast lump Burn injury of skin of finger Cardiology follow-up encounter Chronic anticoagulation Chronic back pain Chronic cough CKD (chronic kidney disease) COVID-19 vaccine series completed CPAP (continuous positive airway pressure) dependence CVA (cerebral vascular accident) Depression Depression with anxiety Diabetes mellitus Dietary restriction DKA (diabetic ketoacidoses) Elevated brain natriuretic peptide (BNP) level Essential hypertension Finger infection Flu vaccine need Former smoker Health care maintenance History of cerebrovascular accident History of echocardiogram History of edema History of stress test History of UTI Hyperlipidemia Hypertension Intertrigo Irregular heartbeat Kidney disease retirement (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 MRSA infection 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 without evidence of necrosis Non-rheumatic mitral valve stenosis Nonrheumatic aortic (valve) stenosis Osteoarthritis Osteomyelitis of finger of right hand Osteoporosis Overactive bladder Pancreatitis Paroxysmal A-fib Paroxysmal atrial fibrillation Paroxysmal atrial fibrillation with RVR Post-menopausal Preoperative evaluation to rule out surgical contraindication Stage 3b chronic kidney disease (CKD) Subtherapeutic international normalized ratio (INR) Tachycardia Urinary incontinence, overflow Venous insufficiency Vision problems Walker as ambulation aid Weakness Home Medications acetaminophen 325 mg capsule 650 mg PO PRN PRN Pain 12/02/21 [History Last Taken 07/08/22] amlodipine 10 mg tablet 10 mg PO DAILY BP #90 tabs 09/07/22 [Rx Last Taken Unknown] ascorbic acid (vitamin C) 500 mg tablet (Vitamin C) 500 mg PO DAILY vitamin #90 tabs 09/07/22 [Rx Last Taken Unknown] aspirin 81 mg chewable tablet 81 mg PO BREAKFAST Heart #90 tabs 09/07/22 [Rx Last Taken Unknown] cholecalciferol (vitamin D3) 50 mcg (2,000 unit) capsule 50 mcg PO DAILY vitamin#90 caps 09/07/22 [Rx Last Taken Unknown] ferrous sulfate 325 mg (65 mg iron) tablet 325 mg PO DAILY Supplement #90 tabs 09/07/22 [Rx Last Taken Unknown] glimepiride 4 mg tablet 4 mg PO BID dm 3 months #180 tabs 09/07/22 [Rx Last Taken Unknown] metformin 1,000 mg tablet 1,000 mg PO BID DM #180 tabs 09/07/22 [Rx Last Taken Unknown] multivitamin 1 tab PO DAILY SUPPLEMENT #90 tabs 09/07/22 [Rx Last Taken Unknown] oxybutynin chloride 15 mg tablet,extended release 24 hr 15 mg PO BID bladder #180 tabs 09/07/22 [Rx Last Taken Unknown] sertraline 100 mg tablet (Zoloft) 100 mg PO DAILY anxiety #90 tabs 09/07/22 [Rx Last Taken Unknown] atorvastatin 20 mg tablet (Lipitor) 20 mg PO DAILY Check with primary doctor 09/09/22 [History Last Taken Unknown] diltiazem HCl 240 mg capsule,extended release 24 hr (Cardizem CD) 240 mg PO DAILY heart 09/09/22 [History Last Taken Unknown] furosemide 20 mg tablet 20 mg PO DAILY #30 tabs 09/15/22 [Rx Last Taken Unknown] metoprolol succinate 100 mg tablet,extended release 24 hr 100 mg PO BID Check with primary doctor #60 tabs 09/29/22 [Rx Last Taken Unknown] WOUND CARE #1 ea 10/06/22 [Rx Last Taken Unknown] apixaban 5 mg tablet 5 mg PO BID blood thinner #180 tabs 10/15/22 [Rx Last Taken Unknown] nystatin 100,000 unit/gram topical powder 1 applic topical BID PRN Rash 10/26/22[History Last Taken Unknown] Allergy/AdvReac Type Severity Reaction Status Date / Time fosinopril [From Monopril] Allergy Unknown Other Verified 11/01/22 09:58 pioglitazone AdvReac Other Verified 11/01/22 09:58 Family History Father Diabetes High cholesterol Heart disease Melanoma Hypertension Mother Heart disease Brother AIDS (acquired immune deficiency syndrome) Surgical History History of amputation of finger of right hand History of back surgery History of back surgery History of carpal tunnel release History of carpal tunnel release History of hand surgery History of hysterectomy History of hysterectomy History of left elbow replacement History of left elbow replacement History of surgical amputation of finger of right hand Hx of colonoscopy S/P hysterectomy S/P ORIF (open reduction internal fixation) fracture Status post surgical amputation of finger of right hand Social History household members: none Smoking Status: Never smoker how long ago did patient quit smokin years ago alcohol intake: current alcohol intake frequency: holidays/special occasions only substance use type: does not use what type of physical activity do you participate in: other details: aquasize Vital Signs Vital Signs Vital Signs: 11/09/22 09:24 Pulse Rate 81 Respiratory Rate 16 Blood Pressure 167/71 H Blood Pressure Mean 103 Blood Pressure Source Monitor Blood Pressure Position Sitting Blood Pressure Location Left Arm Oxygen Delivery Method Room Air Weight Weight: 185 lb Body Mass Index (BMI) 34.9 Physical Exam Const alert, oriented x3, no apparent distress and well nourished Constitutional Narrative: The patient is mildly obese. General Appearance: cooperative, comfortable and well developed Orientation / Consciousness: awake, oriented to person, oriented to place and oriented to time HEENT normocephalic and head/scalp atraumatic Head and Scalp: normal to inspection, normocephalic and atraumatic External Ear: external ears normal Eyes PERRL and EOMs intact bilaterally General Eye: normal appearance of both eyes Resp normal respiratory effort, normal air movement, no retractions and no use of accessory muscles Effort and Inspection: able to speak in complete sentences Extremity no calf tenderness General Extremity: Negative for clubbing or cyanosis Skin Wound Narrative: Minimal swelling and edema are noted in the patient's lower extremities bilaterally. The multiple small wounds and eschars in the patient's lower extremities are now all essentially resolved, but for 1 very small open ulceration on the right pretibial area. Dimensions are documented elsewhere. There is no sign of infection or cellulitis. Pedal pulses are strong by Dopplersignal assessment. There has been significant improvement within the last several weeks. Neuro oriented x3, CN's II-XII intact bilaterally and moves all extremities Sensorium / Orientation: awake, alert, oriented to person, oriented to place andoriented to time Psych Appearance: grossly normal and appropriate Attitude: calm Activity / Motor Behavior: appropriate eye contact Speech: normal speech Mood & Affect: euthymic mood Thought Process: normal thought process Thought Content: normal thought content Attention / Concentration: attention grossly intact Debridement Note Debridement Note Wound debrided: Right pretibial ulceration Laterality: Right Type of Debridement: Excisional debridement Anesthesia Used: 5% Lidocaine Gel Depth: Down to and including healthy tissue and in the subcutaneous layer Percentage of wound debrided: 100 Instrument Used: 5mm curette Severity: Fat Layer Exposed Bleeding Controlled with: Compression and gauze Patient tolerated procedure: Patient tolerated procedure well Post-Debridement Measurements and Additional Note: Post-Debridement Measurements/Treatment - Nurse 1 - General Ulcer Assessment Start: 10/26/22 09:11 Freq: Status: Active Protocol: DENG Activity Type Activity Date Activity User E-sign Co-sign Detail Recorded Client Recorded Date Recorded By Document 10/26/22 09:11 [facility] [id number] 10/26/22 09:22 [facility] Document 11/02/22 11:40 MA [id number] 11/02/22 11:48 MA Document 11/09/22 09:24 [facility] [id number] 11/09/22 09:28 [facility] 10/26/22 11/02/22 11/09/22 09:11 11:40 09:24 - Today's Visit Information Type of service Initial Visit Follow-up Visit Follow-up Visit (Physician/PANTOGRAPH WATCHER (Physician/PANTOGRAPH WATCHER ) ) Arrival Mode Ambulatory, Ambulatory, Ambulatory, Walker Walker Walker Transfer Assistance None None Patient Identification Verified (Name & Yes Yes ) Patient Requires Transmission-Based No No Precautions Height and Weight Height 5 ft 1 in Weight 185 lb Weight in Pounds 185.0 lbs Body Mass Index (BMI) 34.9 34.9 34.9 BMI Classification Obese Obese Obese BSA - Florina 1.83 Vital Signs Temperature (97.8 F-99.1 F) 96.7 F L 97.4 F L Temperature Source Temporal Temporal Pulse Rate (60-100) 65 69 81 Pulse Location Monitor Monitor Monitor Respiratory Rate (12-18) 16 16 Respiratory rate source Observation Observation Oxygen Delivery Method Room Air Room Air Blood Pressure (90/60-120/80) 120/48 L 142/67 H 167/71 H Blood Pressure Mean 72 92 103 Source Monitor Monitor Monitor Position Sitting Sitting Blood Pressure Location Left Arm Left Arm History Since Last Visit- (Skip if this is Patient's initial visit) Have you changed medications since your No No last visit? Any new allergies or adverse reactions No No Had a fall/change in ADL's that may No No increase risk of falls Signs or symptoms of abuse and/or No No neglect since last visit Have you been in the hospital since your No No last visit? Has dressing in place as prescribed Yes No Has compression in place as prescribed N/A No Has offloadiing in place as prescribed N/A N/A Experienced any changes in pain level or No No management Left Footwear Regular Shoe Regular Shoe Regular Shoe Right Footwear Regular Shoe Regular Shoe Regular Shoe Pain Scale: 0-10 Numeric Is Patient Pain Free? Yes Yes Yes Lower Extremity Assessment/ Foot Assessment/ Toe Nail Assessment Right -Posterior Tibial Doppler Multiphasic -Dorsalis Pedis Doppler Multiphasic -Extremity Color Pale -Hair Growth on Legs Yes -Hair Growth on Toes No -Temperature of Extremity Cool -Other Deformity No -Prior Foot Ulcer No -Charcot Joint No -Prior Amputation No -Thick Yes -Discolored Yes -Deformed No -Improper Length & Hygeine No Left -Posterior Tibial Doppler Monophasic -Dorsalis Pedis Doppler Monophasic -Extremity Color Pale -Hair Growth on Legs Yes -Hair Growth on Toes Yes -Temperature of Extremity Cool -Thick Yes -Discolored Yes -Deformed No -Improper Length & Hygeine No Communication Assessment Preferred language Tanz[place] 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 Required No Able to Read Yes Able to Write Yes Communication Tools None Right Hearing Abillity Normal Left Hearing Abillity Normal Teaching Assessment Preferences Verbal,Written, Audio/Visual, Demonstration Barriers to Learning None Readiness To Learn Excellent Willingness to Engage in Self Management High Activies Readiness to Engage in Self Management High Activities Anxiety Level Calm Cooperation Cooperative Perception Coherent Interest in Health Problem Asks Questions Education Importance Acknowledges Need Does Patient Smoke tobacco or other No substances Smoking Status Never smoker Is Patient Diabetic Yes WC - Nurse 1 - General Ulcer Measurement Start: 10/26/22 09:11 Freq: Status: Active Protocol: Activity Type Activity Date Activity User E-sign Co-sign Detail Recorded Client Recorded Date Recorded By Document 10/26/22 09:11 BMF [id number] 10/26/22 09:22 BMF Edit Result 10/26/22 09:11 BMF (1) [id number] 10/26/22 09:33 BMF Document 11/02/22 11:40 AK [id number] 11/02/22 11:48 AK Document 11/09/22 09:24 BMF [id number] 11/09/22 09:28 BMF (1) #5- L GR TOE - Combined with other wound => No - Current Size (cm) - Length => 0.5 - Current Size (cm) - Width => 0.5 - Current Size (cm) - Depth => 0.3 - Total Square Cm => 0.25 - Date of Last Picture (Recall this => 10/26/22 field) - Photo Taken => Yes - Epithelialization => None Present - Tunneling => No - Undermining/Tunneling => No - Circular Undermining => No - Exudate Amt => None Present - Wound Margin => Distinct, Outline => Attached - Granulation Amt => Large (67-100%) - Granulation Quality => Red - Slough/Fibrin => Yes - Necrotic Tissue Type => Adherent Slough - Texture (Jessica-wound Skin Appearance) => Callus,Scarring - Moisture (Jessica-wound Skin Appearance) => Assessed,Dry/Scaly - Color (Jessica-wound Skin Appearance) => Assessed - Temperature (Jessica-wound Skin => No Abnormality (Pt Appearance) => Warm) - Tenderness on Palpation (Jessica-wound => No Skin Appearance) - Ulcer Cleansing => Rinsed/Irrigated => with Saline - Foul Odor after Cleansing => No - Anesthetic Used => 5% Lidocaine Gel 10/26/22 11/02/22 11/09/22 09:11 11:40 09:24 Wound Center Nurse 1 #5- L GR TOE -Combined with other wound No No No -Current Size (cm) - Length 0.5 0.2 0.4 -Current Size (cm) - Width 0.5 0.8 0.8 -Current Size (cm) - Depth 0.3 0.3 -Total Square Cm 0.25 0.16 0.32 -Date of Last Picture (Recall this 10/26/22 11/09/22 field) -Photo Taken Yes No Yes -Epithelialization None Present Small 1-33% -Tunneling No No No -Undermining/Tunneling No No No -Circular Undermining No No No -Change in Wound Grade/Stage No -Exudate Amt None Present Small None Present -Exudate Type Serosanguineous -Wound Margin Distinct, Distinct, Distinct, Outline Outline Outline Attached Attached Attached -Granulation Amt Large (67-100%) Small (1-33%) -Granulation Quality Red N/A -Slough/Fibrin Yes Yes -Necrosis Amt Small (1-33%) -Necrotic Tissue Type Adherent Slough Adherent Slough -Structure Exposed N/A -Texture (Jessica-wound Skin Appearance) Callus,Scarring No Abnormality, Assessed,Callus Assessed ,Scarring -Moisture (Jessica-wound Skin Appearance) Assessed,Dry/ No Abnormality, Assessed,Dry/ Scaly Assessed Scaly -Color (Jessica-wound Skin Appearance) Assessed No Abnormality, Assessed Assessed -Temperature (Jessica-wound Skin No Abnormality No Abnormality No Abnormality Appearance) (Pt Warm) (Pt Warm) (Pt Warm) -Tenderness on Palpation (Jessica-wound No No No Skin Appearance) -Ulcer Cleansing Rinsed/ Rinsed/ Soap and Water Irrigated with Irrigated with Saline Saline -Foul Odor after Cleansing No No No -Anesthetic Used 5% Lidocaine 4% Lidocaine 5% Lidocaine Gel Solution Gel #4- L MED LE CLUSTER -Combined with other wound No No No -Current Size (cm) - Length 14.5 0.1 -Current Size (cm) - Width 7 0.1 -Current Size (cm) - Depth 0.1 0.1 -Total Square Cm 101.5 0.01 -Date of Last Picture (Recall this 10/26/22 11/09/22 field) -Photo Taken Yes Yes -Epithelialization None Present Large 67-100% -Tunneling No -Undermining/Tunneling No -Circular Undermining No -Exudate Amt Small -Exudate Type Sanguineous -Wound Margin Distinct, Outline Attached -Granulation Amt Medium (34-66%) -Granulation Quality Red -Slough/Fibrin Yes -Necrosis Amt Medium (34-66%) -Necrotic Tissue Type Adherent Slough -Texture (Jessica-wound Skin Appearance) Assessed, Scarring -Moisture (Jessica-wound Skin Appearance) Assessed -Color (Jessica-wound Skin Appearance) Assessed -Temperature (Jessica-wound Skin No Abnormality Appearance) (Pt Warm) -Tenderness on Palpation (Jessica-wound No Skin Appearance) -Ulcer Cleansing Rinsed/ Irrigated with Saline -Foul Odor after Cleansing No -Anesthetic Used 4% Lidocaine Solution #3- L LAT LE CLUSTER -Combined with other wound No No -Current Size (cm) - Length 5.4 0.1 -Current Size (cm) - Width 2 0.1 -Current Size (cm) - Depth 0.1 0.1 -Total Square Cm 10.8 0.01 -Date of Last Picture (Recall this 10/26/22 11/09/22 field) -Photo Taken Yes Yes -Epithelialization None Present Large 67-100% -Tunneling No -Undermining/Tunneling No -Circular Undermining No -Exudate Amt Small -Exudate Type Sanguineous -Wound Margin Distinct, Outline Attached -Granulation Amt Medium (34-66%) -Granulation Quality Red -Slough/Fibrin Yes -Necrosis Amt Medium (34-66%) -Necrotic Tissue Type Eschar -Texture (Jessica-wound Skin Appearance) Assessed, Scarring -Moisture (Jessica-wound Skin Appearance) Assessed -Color (Jessica-wound Skin Appearance) Assessed -Temperature (Jessica-wound Skin No Abnormality Appearance) (Pt Warm) -Tenderness on Palpation (Jessica-wound No Skin Appearance) -Ulcer Cleansing Rinsed/ Irrigated with Saline -Foul Odor after Cleansing No -Anesthetic Used 4% Lidocaine Solution #2- RLE CLUSTER -Combined with other wound No No -Current Size (cm) - Length 14.5 0.1 -Current Size (cm) - Width 9 0.1 -Current Size (cm) - Depth 0.1 0.1 -Total Square Cm 130.5 0.01 -Date of Last Picture (Recall this 10/26/22 11/09/22 field) -Photo Taken Yes Yes -Epithelialization None Present Large 67-100% -Tunneling No -Undermining/Tunneling No -Circular Undermining No -Exudate Amt Small -Exudate Type Sanguineous -Wound Margin Distinct, Outline Attached -Granulation Amt Medium (34-66%) -Granulation Quality Red -Slough/Fibrin Yes Yes -Necrosis Amt Medium (34-66%) -Necrotic Tissue Type Eschar Eschar -Texture (Jessica-wound Skin Appearance) Assessed, Assessed Scarring -Moisture (Jessica-wound Skin Appearance) Assessed Assessed -Color (Jessica-wound Skin Appearance) Assessed Assessed -Temperature (Jessica-wound Skin No Abnormality Appearance) (Pt Warm) -Tenderness on Palpation (Jessica-wound No Skin Appearance) -Ulcer Cleansing Rinsed/ Irrigated with Saline -Foul Odor after Cleansing No -Anesthetic Used 4% Lidocaine Solution -Wound Comment(s) SOME ARE SCABBED. PT PICKS/SCRATCHES Lower Limb Edema Present Yes Right Calf (cm) 36.2 39.5 39.6 Right Ankle (cm) 23 20.5 21 Left Calf (cm) 37.5 40 39 Left Ankle (cm) 23.2 25 23 WC - Nurse 2 - General Ulcer CM Notes Start: 10/26/22 09:11 Freq: Status: Active Protocol: Activity Type Activity Date Activity User E-sign Co-sign Detail Recorded Client Recorded Date Recorded By Document 10/26/22 11:22 PL [id number] 10/26/22 11:26 PL Document 11/09/22 12:14 PL [id number] 11/09/22 12:15 PL 10/26/22 11/09/22 11:22 12:14 Wound Center Nurse 2 #5- L GR TOE -Time 09:39 -Correct Patient Yes -Correct Side, Site, Position Yes -Correct Procedure Yes -Procedure Performed Yes -Type of Procedure Debridement -Clinical Debridement Subcutaneous -Tissue Removed Subcutaneous -Post Debridement (cm) - Length 0.5 -Post Debridement (cm) - Width 0.5 -Post Debridement (cm) - Depth 0.3 -Total Square (Post) (cm) 0.25 -Area of Debridement (cm) - Length 0.5 -Area of Debridement (cm) - Width 0.5 -Total Square (Area) (cm) 0.25 -Tunneling No -Undermining/Tunneling No -Circular Undermining No -Wound/Ulcer Outcome Not Healed -Ulcer Cleansing Rinsed/ Irrigated with Saline -Foul Odor after Cleansing No -Bioengineered Tissue No -Bleeding Controlled with Pressure -Treatment Response Procedure Tolerated Well -Debridement - Subq, 1st 20sq cm No #4- L MED LE CLUSTER -Time 09:39 -Correct Patient Yes -Correct Side, Site, Position Yes -Correct Procedure Yes -Procedure Performed Yes -Type of Procedure Debridement -Clinical Debridement Subcutaneous -Tissue Removed Subcutaneous -Post Debridement (cm) - Length 14.5 -Post Debridement (cm) - Width 7.0 -Post Debridement (cm) - Depth 0.1 -Total Square (Post) (cm) 101.50 -Area of Debridement (cm) - Length 14.5 -Area of Debridement (cm) - Width 7.0 -Total Square (Area) (cm) 101.50 -Tunneling No -Undermining/Tunneling No -Circular Undermining No -Wound/Ulcer Outcome Not Healed -Ulcer Cleansing Rinsed/ Irrigated with Saline -Foul Odor after Cleansing No -Bioengineered Tissue No -Bleeding Controlled with Pressure -Treatment Response Procedure Tolerated Well -Debridement - Subq, 20sq cm No #3- L LAT LE CLUSTER -Time 09:39 -Correct Patient Yes -Correct Side, Site, Position Yes -Correct Procedure Yes -Procedure Performed Yes -Type of Procedure Debridement -Clinical Debridement Subcutaneous -Tissue Removed Subcutaneous -Post Debridement (cm) - Length 5.4 -Post Debridement (cm) - Width 2.0 -Post Debridement (cm) - Depth 0.1 -Total Square (Post) (cm) 10.80 -Area of Debridement (cm) - Length 5.4 -Area of Debridement (cm) - Width 2.0 -Total Square (Area) (cm) 10.80 -Tunneling No -Undermining/Tunneling No -Circular Undermining No -Wound/Ulcer Outcome Not Healed -Ulcer Cleansing Rinsed/ Irrigated with Saline -Foul Odor after Cleansing No -Bioengineered Tissue No -Bleeding Controlled with Pressure -Treatment Response Procedure Tolerated Well -Debridement - Subq, 1st 20sq cm No #2- RLE CLUSTER -Time 09:39 09:33 -Correct Patient Yes Yes -Correct Side, Site, Position Yes Yes -Correct Procedure Yes Yes -Procedure Performed Yes Yes -Type of Procedure Debridement Debridement -Clinical Debridement Subcutaneous Subcutaneous -Tissue Removed Subcutaneous Subcutaneous -Post Debridement (cm) - Length 14.5 0.1 -Post Debridement (cm) - Width 9.0 0.1 -Post Debridement (cm) - Depth 0.1 0.1 -Total Square (Post) (cm) 130.50 0.01 -Area of Debridement (cm) - Length 14.5 0.1 -Area of Debridement (cm) - Width 9.0 0.1 -Total Square (Area) (cm) 130.50 0.01 -Tunneling No No -Undermining/Tunneling No No -Circular Undermining No No -Wound/Ulcer Outcome Not Healed Not Healed -Ulcer Cleansing Rinsed/ Rinsed/ Irrigated with Irrigated with Saline Saline -Foul Odor after Cleansing No No -Bioengineered Tissue No No -Bleeding Controlled with Pressure Pressure -Treatment Response Procedure Procedure Tolerated Well Tolerated Well -Debridement - Subq, 1st 20sq cm Yes Yes -Debridement, SubQ, ea addt'l 20sq cm 12 or part thereof Pain Scale: 0-10 Numeric Is Patient Pain Free? Yes Yes WC - Nurse 3 - General Ulcer D/C NN Start: 10/26/22 09:11 Freq: Status: Active Protocol: Activity Type Activity Date Activity User E-sign Co-sign Detail Recorded Client Recorded Date Recorded By Document 10/26/22 09:51 MW [id number] 10/26/22 09:54 MW Document 11/02/22 11:40 AK [id number] 11/02/22 11:48 AK Document 11/09/22 09:54 [facility] [id number] 11/09/22 09:54 [facility] 10/26/22 11/02/22 11/09/22 09:51 11:40 09:54 Wound Care Center Nurse 3 #5- L GR TOE -Ulcer Cleansing Rinsed/ Rinsed/ Irrigated with Irrigated with Saline Saline -Foul Odor after Cleansing No No -Negative Pressure Wound Therapy N/A N/A -Primary Dressing Applied Promogran Promogran -Primary Dressing Covered/Secured with Dry Gauze Dry Gauze, Secured with Tape -Promogran 1 1 #4- L MED LE CLUSTER -Ulcer Cleansing Rinsed/ Irrigated with Saline -Foul Odor after Cleansing No -Negative Pressure Wound Therapy N/A -Other Dressing promogran -Primary Dressing Covered/Secured with Dry Gauze #3- L LAT LE CLUSTER -Ulcer Cleansing Rinsed/ Irrigated with Saline -Foul Odor after Cleansing No -Negative Pressure Wound Therapy N/A -Other Dressing promogran -Primary Dressing Covered/Secured with Dry Gauze #2- RLE CLUSTER -Ulcer Cleansing Rinsed/ Rinsed/ Irrigated with Irrigated with Saline Saline -Foul Odor after Cleansing No No -Negative Pressure Wound Therapy N/A -Primary Dressing Applied Promogran -Other Dressing promogran -Primary Dressing Covered/Secured with Dry Gauze Dry Gauze -Promogran 1 Bilateral LE -Lotion applied to leg before No Yes Yes compression wrap -Multi-Layered Wrap Application Multi-Layer Unna Boot - Multi-Layer Comp - Bilat ($ Bilateral ($) Comp - Bilat ($ ) ) -Stockings No Treatment Response Procedure Procedure Tolerated Well Tolerated Well Vital Signs Temperature (97.8 F-99.1 F) 97.4 F L Temperature Source Temporal Pulse Rate (60-100) 69 Pulse Location Monitor Blood Pressure (90/60-120/80) 142/67 H Blood Pressure Mean 92 Source Monitor Pain Scale: 0-10 Numeric Is Patient Pain Free? Yes Yes Yes Teaching: Wound Center Dressing Your Wound -Person Taught Patient -Teaching Method Discussion -Response to teaching Verbalize understanding WC - Visit Discharge Discharge Condition Stable Stable Stable Ambulatory Status Ambulatory, Ambulatory, Walker Walker Transportation [facility] Private Auto Private Auto transportation Medication Reconcilliation completed & No Yes provided to patient/care provider Clinical Summary of Care Provided Yes Yes Notes: Dressing and wraps applied per Jagdeep Bellamy LPN. Facility Type Home Health Assessment/Plan Assessment/Plan (1) Bilateral leg ulcer: CODE(S): L97.919 - Non-pressure chronic ulcer of unspecified part of rightlower leg with unspecified severity; L97.929 - Non-pressure chronic ulcer of unspecified part of left lower leg with unspecified severity QUALIFIERS: Non-pressure ulcer stage: with fat layer exposed Qualified Code(s): L97.912 - Non-pressure chronic ulcer of unspecified part of right lower leg with fat layer exposed; L97.922 - Non-pressure chronic ulcer of unspecified part of left lower leg with fat layer exposed (2) CKD (chronic kidney disease): CODE(S): N18.9 - Chronic kidney disease, unspecified (3) Acute on chronic heart failure: CODE(S): I50.9 - Heart failure, unspecified (4) Paroxysmal A-fib: CODE(S): I48.0 - Paroxysmal atrial fibrillation (5) Chronic anticoagulation: CODE(S): Z79.01 - retirement (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 (6) Hyperlipidemia: CODE(S): E78.5 - Hyperlipidemia, unspecified (7) Essential hypertension: CODE(S): I10 - Essential (primary) hypertension (8) Non-rheumatic mitral valve stenosis: CODE(S): I34.2 - Nonrheumatic mitral (valve) stenosis (9) Nonrheumatic aortic (valve) stenosis: CODE(S): I35.0 - Nonrheumatic aortic (valve) stenosis (10) History of cerebrovascular accident: CODE(S): Z86.73 - Personal history of transient ischemic attack (TIA), andcerebral infarction without residual deficits (11) Pulmonary hypertension: CODE(S): I27.20 - Pulmonary hypertension, unspecified (12) Renal insufficiency: CODE(S): N28.9 - Disorder of kidney and ureter, unspecified (13) Type II diabetes mellitus: CODE(S): E11.9 - Type 2 diabetes mellitus without complications (14) Obstructive sleep apnea: CODE(S): G47.33 - Obstructive sleep apnea (adult) (pediatric) (15) Urinary incontinence, overflow: CODE(S): N39.490 - Overflow incontinence (16) Hypertriglyceridemia: CODE(S): E78.1 - Pure hyperglyceridemia (17) Failure to thrive: (18) Venous insufficiency: CODE(S): I87.2 - Venous insufficiency (chronic) (peripheral) (19) Osteoporosis: CODE(S): M81.0 - Age-related osteoporosis without current pathological fracture QUALIFIERS: Osteoporosis type: age-related Presence of current pathological fracture: without current pathological fracture Qualified Code(s):M81.0 - Age-related osteoporosis without current pathological fracture (20) Debility: CODE(S): R53.81 - Other malaise (21) History of back surgery: CODE(S): Z98.890 - Other specified postprocedural states (22) History of carpal tunnel release: CODE(S): Z98.890 - Other specified postprocedural states (23) History of hysterectomy: CODE(S): Z90.710 - Acquired absence of both cervix and uterus (24) History of left elbow replacement: CODE(S): Z96.622 - Presence of left artificial elbow joint (25) History of amputation of finger of right hand: CODE(S): Z89.021 - Acquired absence of right finger(s) PLAN: Plan This is a 72-year-old diabetic female with multiple pre-existing medical problems, which are listed herein. She presented with multiple small, superficial ulcerations and eschars in her lower extremities bilaterally. 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 Picking and scratching at her ulcerations has been strongly discouraged. The patient has been urged to elevate her lower extremities is much as possible. Elevation is to be to heart level, or higher. She is to continue sleeping on a flat mattress at night. Elevation is to occur during daytime hours as well. Prolonged idle sitting has been discouraged. Activity has been encouraged. Bacterial cultures of the patient's ulcerations were performed recently, and were positive for MRSA. Patient has been started on Levaquin 500 mg p.o. daily for 10 days, which is now nearly completed. She has been treated for MRSA infection in the recent past as well. Therefore, we have prescribed mupirocin ointment 2% for intranasal use. It is to be applied intranasally twice daily for 5 days. In addition, the patient has been instructed to obtain Hibiclens 4% soap, and to shower daily using Hibiclens for a total of 7 days. We are to continue the use of Promogran topically to the remaining small ulceration on the right pretibial area. The patient has demonstrated significant improvement in recent weeks, likely due, in part, to the use of 3M 2 layer compression wraps which prevent her from picking at her wounds. So as to help prevent scratching and picking on the part of the patient, we are to continue the use of 3M 2 layer compression wraps, which will be changed twice weekly. The patient has home health nursing care for assistance with 3M 2 layer compression wraps. Promogran will be used topically at the site of the remaining small, superficial ulceration. The patient is to return in 1 week for reevaluation. She has been encouraged to follow-up with her fold skiver, Dr. Wayne Spencer, relative to a dry, escharous ulceration on herright great toe, which shows no sign of infection. Total time: 28 minutes 11/09/22 1432 <Electronically signed by Mango Waddell MD> Cosigner Signature (if applicable): CC: ~ Signed [facility] Work Phone: [phone] History and physical note Author Mango Waddell [facility] November 02, 2022 12:24pm Note Date/Time November 02, 2022 12:2 4pm [facility] [address] [place] [address] H&P Exam - Wound Care 11/02/22 1213 MR#: [id number] Acct: [id number] Name: JOSLEINE ELLIS Rep #:[id number] : 1950 72 From: Mango Balbuena PCP: Dr. Bernie Reagan MD Status:R EG RCR Location: History of Present Illness Date of Service: 11/02/22 Chief Complaint: Multiple, small superficial ulcerations in the lower extremities bilaterally History of Wound: This 72-year-old white female who presented with bilateral lower extremity ulcerations. They are small in size, but multiple in number. They have been present for a lengthy period of time. 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 The patient has been using silver cell and Alberto wraps. The patient also experiences swelling and edema in her lower extremities. She sleeps in a bed at night. 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 She has been under the care of Dr. Kiran Wolff, plastic surgeon, in this regard. Her recent MRSA infection is said to have been her first and only history of MRSA infections. She underwent surgery on 07/12/22 for surgical preparation right long finger amputation stump ulcer with incision and drainage and excisional debridement MRSA abscess and partial ostectomy middle phalanx for osteomyelitis. Operative tissue cultures positive for Enterobacter cloacae complex and MRSA. Operative bone cultures positive for MRSA and MRSE. She was discharged home on 07/15/22 with a PICC line and IV Vancomycin and oral Cipro. She was seen by ID while hospitalized and was to follow up ID post-discharge. FORMERLY [facility], [facility] Medical History Abnormal mammogram of right breast Abscess of right middle finger Acute kidney injury Acute on chronic heart failure Alcohol use Anemia Anxiety Anxiety and depression Arthritis Atrial fib/flutter, transient Atrial fibrillation Back pain Bacteremia Bilateral leg ulcer Breast lump Burn injury of skin of finger Cardiology follow-up encounter Chronic anticoagulation Chronic back pain Chronic cough CKD (chronic kidney disease) COVID-19 vaccine series completed CPAP (continuous positive airway pressure) dependence CVA (cerebral vascular accident) Depression Depression with anxiety Diabetes mellitus Dietary restriction DKA (diabetic ketoacidoses) Elevated brain natriuretic peptide (BNP) level Essential hypertension Finger infection Flu vaccine need Former smoker Health care maintenance History of cerebrovascular accident History of echocardiogram History of edema History of stress test History of UTI Hyperlipidemia Hypertension Intertrigo Irregular heartbeat 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 MRSA infection 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 without evidence of necrosis Non-rheumatic mitral valve stenosis Nonrheumatic aortic (valve) stenosis Osteoarthritis Osteomyelitis of finger of right hand Osteoporosis Overactive bladder Pancreatitis Paroxysmal A-fib Paroxysmal atrial fibrillation Paroxysmal atrial fibrillation with RVR Post-menopausal Preoperative evaluation to rule out surgical contraindication Stage 3b chronic kidney disease (CKD) Subtherapeutic international normalized ratio (INR) Tachycardia Urinary incontinence, overflow Venous insufficiency Vision problems Walker as ambulation aid Weakness Home Medications acetaminophen 325 mg capsule 650 mg PO PRN PRN Pain 12/02/21 [History Last Taken 07/08/22] amlodipine 10 mg tablet 10 mg PO DAILY BP #90 tabs 09/07/22 [Rx Last Taken Unknown] ascorbic acid (vitamin C) 500 mg tablet (Vitamin C) 500 mg PO DAILY vitamin #90 tabs 09/07/22 [Rx Last Taken Unknown] aspirin 81 mg chewable tablet 81 mg PO BREAKFAST Heart #90 tabs 09/07/22 [Rx Last Taken Unknown] cholecalciferol (vitamin D3) 50 mcg (2,000 unit) capsule 50 mcg PO DAILY vitamin#90 caps 09/07/22 [Rx Last Taken Unknown] ferrous sulfate 325 mg (65 mg iron) tablet 325 mg PO DAILY Supplement #90 tabs 09/07/22 [Rx Last Taken Unknown] glimepiride 4 mg tablet 4 mg PO BID dm 3 months #180 tabs 09/07/22 [Rx Last Taken Unknown] metformin 1,000 mg tablet 1,000 mg PO BID DM #180 tabs 09/07/22 [Rx Last Taken Unknown] multivitamin 1 tab PO DAILY SUPPLEMENT #90 tabs 09/07/22 [Rx Last Taken Unknown] oxybutynin chloride 15 mg tablet,extended release 24 hr 15 mg PO BID bladder #180 tabs 09/07/22 [Rx Last Taken Unknown] sertraline 100 mg tablet (Zoloft) 100 mg PO DAILY anxiety #90 tabs 09/07/22 [Rx Last Taken Unknown] atorvastatin 20 mg tablet (Lipitor) 20 mg PO DAILY Check with primary doctor 09/09/22 [History Last Taken Unknown] diltiazem HCl 240 mg capsule,extended release 24 hr (Cardizem CD) 240 mg PO DAILY heart 09/09/22 [History Last Taken Unknown] furosemide 20 mg tablet 20 mg PO DAILY #30 tabs 09/15/22 [Rx Last Taken Unknown] metoprolol succinate 100 mg tablet,extended release 24 hr 100 mg PO BID Check with primary doctor #60 tabs 09/29/22 [Rx Last Taken Unknown] WOUND CARE #1 ea 10/06/22 [Rx Last Taken Unknown] apixaban 5 mg tablet 5 mg PO BID blood thinner #180 tabs 10/15/22 [Rx Last Taken Unknown] nystatin 100,000 unit/gram topical powder 1 applic topical BID PRN Rash 10/26/22[History Last Taken Unknown] Allergy/AdvReac Type Severity Reaction Status Date / Time fosinopril [From Monopril] Allergy Unknown Other Verified 11/01/22 09:58 pioglitazone AdvReac Other Verified 11/01/22 09:58 Family History Father Diabetes High cholesterol Heart disease Melanoma Hypertension Mother Heart disease Brother AIDS (acquired immune deficiency syndrome) Surgical History History of amputation of finger of right hand History of back surgery History of back surgery History of carpal tunnel release History of carpal tunnel release History of hand surgery History of hysterectomy History of hysterectomy History of left elbow replacement History of left elbow replacement History of surgical amputation of finger of right hand Hx of colonoscopy S/P hysterectomy S/P ORIF (open reduction internal fixation) fracture Status post surgical amputation of finger of right hand Social History household members: none Smoking Status: Never smoker how long ago did patient quit smokin years ago alcohol intake: current alcohol intake frequency: holidays/special occasions only substance use type: does not use what type of physical activity do you participate in: other details: aquasize Vital Signs Vital Signs Vital Signs: 11/02/22 11:40 Temperature 97.4 F L Temperature Source Temporal Pulse Rate 69 Blood Pressure 142/67 H Blood Pressure Mean 92 Blood Pressure Source Monitor Weight Weight: 185 lb Body Mass Index (BMI) 34.9 Physical Exam Const alert, oriented x3, no apparent distress and well nourished Constitutional Narrative: The patient is mildly obese. General Appearance: cooperative, comfortable and well developed Orientation / Consciousness: awake, oriented to person, oriented to place and oriented to time HEENT normocephalic and head/scalp atraumatic Head and Scalp: normal to inspection, normocephalic and atraumatic External Ear: external ears normal Eyes PERRL and EOMs intact bilaterally General Eye: normal appearance of both eyes Resp normal respiratory effort, normal air movement, no retractions and no use of accessory muscles Effort and Inspection: able to speak in complete sentences Extremity no calf tenderness General Extremity: Negative for clubbing or cyanosis Skin Wound Narrative: Mild swelling and edema are noted in the patient's lower extremities bilaterally. Multiple small, eschars in a few ulcerations are noted in both lower extremities, between knee and ankle. Dimensions are documented elsewhere. Pedal pulses are strong by Doppler signal assessment. The location and dimensions of the ulcerations are documented elsewhere. There is no sign of infection or cellulitis. Neuro oriented x3, CN's II-XII intact bilaterally and moves all extremities Sensorium / Orientation: awake, alert, oriented to person, oriented to place andoriented to time Psych Appearance: grossly normal and appropriate Attitude: calm Activity / Motor Behavior: appropriate eye contact Speech: normal speech Mood & Affect: euthymic mood Thought Process: normal thought process Thought Content: normal thought content Attention / Concentration: attention grossly intact Debridement Note Debridement Note No debridement was completed: No debridement was completed today Post-Debridement Measurements and Additional Note: Post-Debridement Measurements/Treatment WC - Nurse 1 - General Ulcer Assessment Start: 10/26/22 09:11 Freq: Status: Active Protocol: DENG Activity Type Activity Date Activity User E-sign Co-sign Detail Recorded Client Recorded Date Recorded By Document 10/26/22 09:11 [facility] [id number] 10/26/22 09:22 [facility] Document 11/02/22 11:40 AK [id number] 11/02/22 11:48 AK 10/26/22 11/02/22 09:11 11:40 - Today's Visit Information Type of service Initial Visit Follow-up Visit (Physician/PANTOGRAPH WATCHER ) Arrival Mode Ambulatory, Ambulatory, Walker Walker Transfer Assistance None Patient Identification Verified (Name & Yes ) Patient Requires Transmission-Based No Precautions Height and Weight Height 5 ft 1 in Weight 185 lb Weight in Pounds 185.0 lbs Body Mass Index (BMI) 34.9 34.9 BMI Classification Obese Obese BSA - Florina 1.83 Vital Signs Temperature (97.8 F-99.1 F) 96.7 F L 97.4 F L Temperature Source Temporal Temporal Pulse Rate (60-100) 65 69 Pulse Location Monitor Monitor Respiratory Rate (12-18) 16 Respiratory rate source Observation Oxygen Delivery Method Room Air Blood Pressure (90/60-120/80) 120/48 L 142/67 H Blood Pressure Mean 72 92 Source Monitor Monitor Position Sitting Blood Pressure Location Left Arm History Since Last Visit- (Skip if this is Patient's initial visit) Have you changed medications since your No last visit? Any new allergies or adverse reactions No Had a fall/change in ADL's that may No increase risk of falls Signs or symptoms of abuse and/or No neglect since last visit Have you been in the hospital since your No last visit? Has dressing in place as prescribed Yes Has compression in place as prescribed N/A Has offloadiing in place as prescribed N/A Experienced any changes in pain level or No management Left Footwear Regular Shoe Regular Shoe Right Footwear Regular Shoe Regular Shoe Pain Scale: 0-10 Numeric Is Patient Pain Free? Yes Yes Lower Extremity Assessment/ Foot Assessment/ Toe Nail Assessment Right -Posterior Tibial Doppler Multiphasic -Dorsalis Pedis Doppler Multiphasic -Extremity Color Pale -Hair Growth on Legs Yes -Hair Growth on Toes No -Temperature of Extremity Cool -Other Deformity No -Prior Foot Ulcer No -Charcot Joint No -Prior Amputation No -Thick Yes -Discolored Yes -Deformed No -Improper Length & Hygeine No Left -Posterior Tibial Doppler Monophasic -Dorsalis Pedis Doppler Monophasic -Extremity Color Pale -Hair Growth on Legs Yes -Hair Growth on Toes Yes -Temperature of Extremity Cool -Thick Yes -Discolored Yes -Deformed No -Improper Length & Hygeine No Communication Assessment Preferred language [place] 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 Required No Able to Read Yes Able to Write Yes Communication Tools None Right Hearing Abillity Normal Left Hearing Abillity Normal Teaching Assessment Preferences Verbal,Written, Audio/Visual, Demonstration Barriers to Learning None Readiness To Learn Excellent Willingness to Engage in Self Management High Activies Readiness to Engage in Self Management High Activities Anxiety Level Calm Cooperation Cooperative Perception Coherent Interest in Health Problem Asks Questions Education Importance Acknowledges Need Does Patient Smoke tobacco or other No substances Smoking Status Never smoker Is Patient Diabetic Yes WC - Nurse 1 - General Ulcer Measurement Start: 10/26/22 09:11 Freq: Status: Active Protocol: Activity Type Activity Date Activity User E-sign Co-sign Detail Recorded Client Recorded Date Recorded By Document 10/26/22 09:11 [facility] [id number] 10/26/22 09:22 [facility] Edit Result 10/26/22 09:11 BM (1) [id number] 10/26/22 09:33 BM Document 11/02/22 11:40 AK [id number] 11/02/22 11:48 AK (1) #5- L GR TOE - Combined with other wound => No - Current Size (cm) - Length => 0.5 - Current Size (cm) - Width => 0.5 - Current Size (cm) - Depth => 0.3 - Total Square Cm => 0.25 - Date of Last Picture (Recall this => 10/26/22 field) - Photo Taken => Yes - Epithelialization => None Present - Tunneling => No - Undermining/Tunneling => No - Circular Undermining => No - Exudate Amt => None Present - Wound Margin => Distinct, Outline => Attached - Granulation Amt => Large (67-100%) - Granulation Quality => Red - Slough/Fibrin => Yes - Necrotic Tissue Type => Adherent Slough - Texture (Jessica-wound Skin Appearance) => Callus,Scarring - Moisture (Jessica-wound Skin Appearance) => Assessed,Dry/Scaly - Color (Jessica-wound Skin Appearance) => Assessed - Temperature (Jessica-wound Skin => No Abnormality (Pt Appearance) => Warm) - Tenderness on Palpation (Jessica-wound => No Skin Appearance) - Ulcer Cleansing => Rinsed/Irrigated => with Saline - Foul Odor after Cleansing => No - Anesthetic Used => 5% Lidocaine Gel 10/26/22 11/02/22 09:11 11:40 Wound Center Nurse 1 #5- L GR TOE -Combined with other wound No No -Current Size (cm) - Length 0.5 0.2 -Current Size (cm) - Width 0.5 0.8 -Current Size (cm) - Depth 0.3 -Total Square Cm 0.25 0.16 -Date of Last Picture (Recall this 10/26/22 field) -Photo Taken Yes No -Epithelialization None Present -Tunneling No No -Undermining/Tunneling No No -Circular Undermining No No -Change in Wound Grade/Stage No -Exudate Amt None Present Small -Exudate Type Serosanguineous -Wound Margin Distinct, Distinct, Outline Outline Attached Attached -Granulation Amt Large (67-100%) Small (1-33%) -Granulation Quality Red N/A -Slough/Fibrin Yes Yes -Necrosis Amt Small (1-33%) -Necrotic Tissue Type Adherent Slough Adherent Slough -Structure Exposed N/A -Texture (Jessica-wound Skin Appearance) Callus,Scarring No Abnormality, Assessed -Moisture (Jessica-wound Skin Appearance) Assessed,Dry/ No Abnormality, Scaly Assessed -Color (Jessica-wound Skin Appearance) Assessed No Abnormality, Assessed -Temperature (Jessica-wound Skin No Abnormality No Abnormality Appearance) (Pt Warm) (Pt Warm) -Tenderness on Palpation (Jessica-wound No No Skin Appearance) -Ulcer Cleansing Rinsed/ Rinsed/ Irrigated with Irrigated with Saline Saline -Foul Odor after Cleansing No No -Anesthetic Used 5% Lidocaine 4% Lidocaine Gel Solution #4- L MED LE CLUSTER -Combined with other wound No No -Current Size (cm) - Length 14.5 -Current Size (cm) - Width 7 -Current Size (cm) - Depth 0.1 -Total Square Cm 101.5 -Date of Last Picture (Recall this 10/26/22 field) -Photo Taken Yes -Epithelialization None Present -Tunneling No -Undermining/Tunneling No -Circular Undermining No -Exudate Amt Small -Exudate Type Sanguineous -Wound Margin Distinct, Outline Attached -Granulation Amt Medium (34-66%) -Granulation Quality Red -Slough/Fibrin Yes -Necrosis Amt Medium (34-66%) -Necrotic Tissue Type Adherent Slough -Texture (Jessica-wound Skin Appearance) Assessed, Scarring -Moisture (Jessica-wound Skin Appearance) Assessed -Color (Jessica-wound Skin Appearance) Assessed -Temperature (Jessica-wound Skin No Abnormality Appearance) (Pt Warm) -Tenderness on Palpation (Jessica-wound No Skin Appearance) -Ulcer Cleansing Rinsed/ Irrigated with Saline -Foul Odor after Cleansing No -Anesthetic Used 4% Lidocaine Solution #3- L LAT LE CLUSTER -Combined with other wound No -Current Size (cm) - Length 5.4 -Current Size (cm) - Width 2 -Current Size (cm) - Depth 0.1 -Total Square Cm 10.8 -Date of Last Picture (Recall this 10/26/22 field) -Photo Taken Yes -Epithelialization None Present -Tunneling No -Undermining/Tunneling No -Circular Undermining No -Exudate Amt Small -Exudate Type Sanguineous -Wound Margin Distinct, Outline Attached -Granulation Amt Medium (34-66%) -Granulation Quality Red -Slough/Fibrin Yes -Necrosis Amt Medium (34-66%) -Necrotic Tissue Type Eschar -Texture (Jessica-wound Skin Appearance) Assessed, Scarring -Moisture (Jessica-wound Skin Appearance) Assessed -Color (Jessica-wound Skin Appearance) Assessed -Temperature (Jessica-wound Skin No Abnormality Appearance) (Pt Warm) -Tenderness on Palpation (Jessica-wound No Skin Appearance) -Ulcer Cleansing Rinsed/ Irrigated with Saline -Foul Odor after Cleansing No -Anesthetic Used 4% Lidocaine Solution #2- RLE CLUSTER -Combined with other wound No -Current Size (cm) - Length 14.5 -Current Size (cm) - Width 9 -Current Size (cm) - Depth 0.1 -Total Square Cm 130.5 -Date of Last Picture (Recall this 10/26/22 field) -Photo Taken Yes -Epithelialization None Present -Tunneling No -Undermining/Tunneling No -Circular Undermining No -Exudate Amt Small -Exudate Type Sanguineous -Wound Margin Distinct, Outline Attached -Granulation Amt Medium (34-66%) -Granulation Quality Red -Slough/Fibrin Yes -Necrosis Amt Medium (34-66%) -Necrotic Tissue Type Eschar -Texture (Jessica-wound Skin Appearance) Assessed, Scarring -Moisture (Jessica-wound Skin Appearance) Assessed -Color (Jessica-wound Skin Appearance) Assessed -Temperature (Jessica-wound Skin No Abnormality Appearance) (Pt Warm) -Tenderness on Palpation (Jessica-wound No Skin Appearance) -Ulcer Cleansing Rinsed/ Irrigated with Saline -Foul Odor after Cleansing No -Anesthetic Used 4% Lidocaine Solution -Wound Comment(s) SOME ARE SCABBED. PT PICKS/SCRATCHES Lower Limb Edema Present Yes Right Calf (cm) 36.2 39.5 Right Ankle (cm) 23 20.5 Left Calf (cm) 37.5 40 Left Ankle (cm) 23.2 25 WC - Nurse 2 - General Ulcer CM Notes Start: 10/26/22 09:11 Freq: Status: Active Protocol: Activity Type Activity Date Activity User E-sign Co-sign Detail Recorded Client Recorded Date Recorded By Document 10/26/22 11:22 [id number] [id number] 10/26/22 11:26 PL 10/26/22 11:22 Wound Center Nurse 2 #5- L GR TOE -Time 09:39 -Correct Patient Yes -Correct Side, Site, Position Yes -Correct Procedure Yes -Procedure Performed Yes -Type of Procedure Debridement -Clinical Debridement Subcutaneous -Tissue Removed Subcutaneous -Post Debridement (cm) - Length 0.5 -Post Debridement (cm) - Width 0.5 -Post Debridement (cm) - Depth 0.3 -Total Square (Post) (cm) 0.25 -Area of Debridement (cm) - Length 0.5 -Area of Debridement (cm) - Width 0.5 -Total Square (Area) (cm) 0.25 -Tunneling No -Undermining/Tunneling No -Circular Undermining No -Wound/Ulcer Outcome Not Healed -Ulcer Cleansing Rinsed/ Irrigated with Saline -Foul Odor after Cleansing No -Bioengineered Tissue No -Bleeding Controlled with Pressure -Treatment Response Procedure Tolerated Well -Debridement - Subq, 1st 20sq cm No #4- L MED LE CLUSTER -Time 09:39 -Correct Patient Yes -Correct Side, Site, Position Yes -Correct Procedure Yes -Procedure Performed Yes -Type of Procedure Debridement -Clinical Debridement Subcutaneous -Tissue Removed Subcutaneous -Post Debridement (cm) - Length 14.5 -Post Debridement (cm) - Width 7.0 -Post Debridement (cm) - Depth 0.1 -Total Square (Post) (cm) 101.50 -Area of Debridement (cm) - Length 14.5 -Area of Debridement (cm) - Width 7.0 -Total Square (Area) (cm) 101.50 -Tunneling No -Undermining/Tunneling No -Circular Undermining No -Wound/Ulcer Outcome Not Healed -Ulcer Cleansing Rinsed/ Irrigated with Saline -Foul Odor after Cleansing No -Bioengineered Tissue No -Bleeding Controlled with Pressure -Treatment Response Procedure Tolerated Well -Debridement - Subq, 1st 20sq cm No #3- L LAT LE CLUSTER -Time 09:39 -Correct Patient Yes -Correct Side, Site, Position Yes -Correct Procedure Yes -Procedure Performed Yes -Type of Procedure Debridement -Clinical Debridement Subcutaneous -Tissue Removed Subcutaneous -Post Debridement (cm) - Length 5.4 -Post Debridement (cm) - Width 2.0 -Post Debridement (cm) - Depth 0.1 -Total Square (Post) (cm) 10.80 -Area of Debridement (cm) - Length 5.4 -Area of Debridement (cm) - Width 2.0 -Total Square (Area) (cm) 10.80 -Tunneling No -Undermining/Tunneling No -Circular Undermining No -Wound/Ulcer Outcome Not Healed -Ulcer Cleansing Rinsed/ Irrigated with Saline -Foul Odor after Cleansing No -Bioengineered Tissue No -Bleeding Controlled with Pressure -Treatment Response Procedure Tolerated Well -Debridement - Subq, 1st 20sq cm No #2- RLE CLUSTER -Time 09:39 -Correct Patient Yes -Correct Side, Site, Position Yes -Correct Procedure Yes -Procedure Performed Yes -Type of Procedure Debridement -Clinical Debridement Subcutaneous -Tissue Removed Subcutaneous -Post Debridement (cm) - Length 14.5 -Post Debridement (cm) - Width 9.0 -Post Debridement (cm) - Depth 0.1 -Total Square (Post) (cm) 130.50 -Area of Debridement (cm) - Length 14.5 -Area of Debridement (cm) - Width 9.0 -Total Square (Area) (cm) 130.50 -Tunneling No -Undermining/Tunneling No -Circular Undermining No -Wound/Ulcer Outcome Not Healed -Ulcer Cleansing Rinsed/ Irrigated with Saline -Foul Odor after Cleansing No -Bioengineered Tissue No -Bleeding Controlled with Pressure -Treatment Response Procedure Tolerated Well -Debridement - Subq, 1st 20sq cm Yes -Debridement, SubQ, ea addt'l 20sq cm 12 or part thereof Pain Scale: 0-10 Numeric Is Patient Pain Free? Yes WC - Nurse 3 - General Ulcer D/C NN Start: 10/26/22 09:11 Freq: Status: Active Protocol: Activity Type Activity Date Activity User E-sign Co-sign Detail Recorded Client Recorded Date Recorded By Document 10/26/22 09:51 MW [id number] 10/26/22 09:54 MW Document 11/02/22 11:40 AK [id number] 11/02/22 11:48 AK 10/26/22 11/02/22 09:51 11:40 Wound Care Center Nurse 3 #5- L GR TOE -Ulcer Cleansing Rinsed/ Rinsed/ Irrigated with Irrigated with Saline Saline -Foul Odor after Cleansing No No -Negative Pressure Wound Therapy N/A N/A -Primary Dressing Applied Promogran Promogran -Primary Dressing Covered/Secured with Dry Gauze Dry Gauze, Secured with Tape -Promogran 1 1 #4- L MED LE CLUSTER -Ulcer Cleansing Rinsed/ Irrigated with Saline -Foul Odor after Cleansing No -Negative Pressure Wound Therapy N/A -Other Dressing promogran -Primary Dressing Covered/Secured with Dry Gauze #3- L LAT LE CLUSTER -Ulcer Cleansing Rinsed/ Irrigated with Saline -Foul Odor after Cleansing No -Negative Pressure Wound Therapy N/A -Other Dressing promogran -Primary Dressing Covered/Secured with Dry Gauze #2- RLE CLUSTER -Ulcer Cleansing Rinsed/ Irrigated with Saline -Foul Odor after Cleansing No -Negative Pressure Wound Therapy N/A -Other Dressing promogran -Primary Dressing Covered/Secured with Dry Gauze Bilateral LE -Lotion applied to leg before No Yes compression wrap -Multi-Layered Wrap Application Multi-Layer Unna Boot - Comp - Bilat ($ Bilateral ($) ) -Stockings No Treatment Response Procedure Tolerated Well Vital Signs Temperature (97.8 F-99.1 F) 97.4 F L Temperature Source Temporal Pulse Rate (60-100) 69 Pulse Location Monitor Blood Pressure (90/60-120/80) 142/67 H Blood Pressure Mean 92 Source Monitor Pain Scale: 0-10 Numeric Is Patient Pain Free? Yes Yes Teaching: Wound Center Dressing Your Wound -Person Taught Patient -Teaching Method Discussion -Response to teaching Verbalize understanding WC - Visit Discharge Discharge Condition Stable Stable Ambulatory Status Ambulatory, Walker Transportation [facility] Private Auto transportation Medication Reconcilliation completed & No Yes provided to patient/care provider Clinical Summary of Care Provided Yes Yes Notes: Dressing and wraps applied per Jagdeep Bellamy LPN. Assessment/Plan Assessment/Plan (1) Bilateral leg ulcer: CODE(S): L97.919 - Non-pressure chronic ulcer of unspecified part of rightlower leg with unspecified severity; L97.929 - Non-pressure chronic ulcer of unspecified part of left lower leg with unspecified severity QUALIFIERS: Non-pressure ulcer stage: with fat layer exposed Qualified Code(s): L97.912 - Non-pressure chronic ulcer of unspecified part of right lower leg with fat layer exposed; L97.922 - Non-pressure chronic ulcer of unspecified part of left lower leg with fat layer exposed (2) CKD (chronic kidney disease): CODE(S): N18.9 - Chronic kidney disease, unspecified (3) Acute on chronic heart failure: CODE(S): I50.9 - Heart failure, unspecified (4) Paroxysmal A-fib: CODE(S): I48.0 - Paroxysmal atrial fibrillation (5) Chronic anticoagulation: CODE(S): Z79.01 - retirement (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 (6) Hyperlipidemia: CODE(S): E78.5 - Hyperlipidemia, unspecified (7) Essential hypertension: CODE(S): I10 - Essential (primary) hypertension (8) Non-rheumatic mitral valve stenosis: CODE(S): I34.2 - Nonrheumatic mitral (valve) stenosis (9) Nonrheumatic aortic (valve) stenosis: CODE(S): I35.0 - Nonrheumatic aortic (valve) stenosis (10) History of cerebrovascular accident: CODE(S): Z86.73 - Personal history of transient ischemic attack (TIA), andcerebral infarction without residual deficits (11) Pulmonary hypertension: CODE(S): I27.20 - Pulmonary hypertension, unspecified (12) Renal insufficiency: CODE(S): N28.9 - Disorder of kidney and ureter, unspecified (13) Type II diabetes mellitus: CODE(S): E11.9 - Type 2 diabetes mellitus without complications (14) Obstructive sleep apnea: CODE(S): G47.33 - Obstructive sleep apnea (adult) (pediatric) (15) Urinary incontinence, overflow: CODE(S): N39.490 - Overflow incontinence (16) Hypertriglyceridemia: CODE(S): E78.1 - Pure hyperglyceridemia (17) Failure to thrive: (18) Venous insufficiency: CODE(S): I87.2 - Venous insufficiency (chronic) (peripheral) (19) Osteoporosis: CODE(S): M81.0 - Age-related osteoporosis without current pathological fracture QUALIFIERS: Osteoporosis type: age-related Presence of current pathological fracture: without current pathological fracture Qualified Code(s):M81.0 - Age-related osteoporosis without current pathological fracture (20) Debility: CODE(S): R53.81 - Other malaise (21) History of back surgery: CODE(S): Z98.890 - Other specified postprocedural states (22) History of carpal tunnel release: CODE(S): Z98.890 - Other specified postprocedural states (23) History of hysterectomy: CODE(S): Z90.710 - Acquired absence of both cervix and uterus (24) History of left elbow replacement: CODE(S): Z96.622 - Presence of left artificial elbow joint (25) History of amputation of finger of right hand: CODE(S): Z89.021 - Acquired absence of right finger(s) PLAN: Plan This is a 72-year-old diabetic female with multiple pre-existing medical problems, which are listed herein. She presented with multiple small, superficial ulcerations and eschars in her lower extremities bilaterally. 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 Picking and scratching at her ulcerations has been strongly discouraged. The patient has been urged to elevate her lower extremities is much as possible. Elevation is to be to heart level, or higher. She is to continue sleeping on a flat mattress at night. Elevation is to occur during daytime hours as well. Prolonged idle sitting has been discouraged. Activity has been encouraged. Bacterial cultures of the patient's ulcerations were performed last week, and were positive for MRSA. Patient has been started on Levaquin 500 mg p.o. daily for 10 days. She has been treated for MRSA infection in the recent past as well. Therefore, we have prescribed mupirocin ointment 2% for intranasal use. It is to be applied intranasally twice daily for 5 days. In addition, the patient has been instructed to obtain Hibiclens 4%soap, and to shower daily using Hibiclens for a total of 7 days. We are to continue the use of Promogran topically to each of the superficial ulcerations in the lower extremities. Within the last week, many of the eschars have sloughed, revealing healing to have occurred beneath. Only a very few small ulcerations remain, which are superficial in nature. So as to help prevent scratching and picking on the part of the patient, we are to continue the use of3M 2 layer compression wraps, which will be changed twice weekly. The patient has home health nursing care for assistance with 3M 2 layer compression wraps. Promogran will be used topically at the site of the few remaining small, superficial ulcerations. The patient is to return in 1 week for reevaluation. She has been encouraged to follow-up with her fold skiver, Dr. Wayne Spencer, relative to an ulceration on her right great toe. Total time: 28 minutes 11/02/22 1224 <Electronically signed by Mango Waddell MD> Cosigner Signature (if applicable): CC: ~ Signed [facility] Work Phone: [phone] History and physical note Author Mango Waddell [facility] October 26, 2022 10:11am Note Date/Time October 26, 2022 9:57 am [facility] [address] [place] [id number] H&P Exam - Wound Care 10/26/22 0949 MR#: [id number] Acct: [id number] Name: JOSELINE ELLIS Rep #:[id number] 4 : 1950 72 From: Mango Balbuena PCP: Dr. Bernie Reagan MD Status:R EG RCR Location: History of Present Illness Date of Service: 10/26/22 Chief Complaint: Multiple, small superficial ulcerations in the lower extremities bilaterally History of Wound: This 72-year-old white female who presented with bilateral lower extremity ulcerations. They are small in size, but multiple in number. They have been present for a lengthy period of time. 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 The patient has been using silver cell and Alberto wraps. The patient also experiences swelling and edema in her lower extremities. She sleeps in a bed at night. 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 She has been under the care of Dr. Kiran Wolff, plastic surgeon, in this regard. Her recent MRSA infection is said to have been her first and only history of MRSA infections. She underwent surgery on 07/12/22 for surgical preparation right long finger amputation stump ulcer with incision and drainage and excisional debridement MRSA abscess and partial ostectomy middle phalanx for osteomyelitis. Operative tissue cultures positive for Enterobacter cloacae complex and MRSA. Operative bone cultures positive for MRSA and MRSE. She was discharged home on 07/15/22 with a PICC line and IV Vancomycin and oral Cipro. She was seen by ID while hospitalized and was to follow up ID post-discharge. FORMERLY [facility], [facility] Medical History Abnormal mammogram of right breast Abscess of right middle finger Acute kidney injury Acute on chronic heart failure Alcohol use Anemia Anxiety Anxiety and depression Arthritis Atrial fib/flutter, transient Atrial fibrillation Back pain Bacteremia Bilateral leg ulcer Breast lump Burn injury of skin of finger Cardiology follow-up encounter Chronic anticoagulation Chronic back pain Chronic cough CKD (chronic kidney disease) COVID-19 vaccine series completed CPAP (continuous positive airway pressure) dependence CVA (cerebral vascular accident) Depression Depression with anxiety Diabetes mellitus Dietary restriction DKA (diabetic ketoacidoses) Elevated brain natriuretic peptide (BNP) level Essential hypertension Finger infection Flu vaccine need Former smoker Health care maintenance History of cerebrovascular accident History of echocardiogram History of edema History of stress test History of UTI Hyperlipidemia Hypertension Intertrigo Irregular heartbeat 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 MRSA infection 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 without evidence of necrosis Non-rheumatic mitral valve stenosis Nonrheumatic aortic (valve) stenosis Osteoarthritis Osteomyelitis of finger of right hand Osteoporosis Overactive bladder Pancreatitis Paroxysmal A-fib Paroxysmal atrial fibrillation Paroxysmal atrial fibrillation with RVR Post-menopausal Preoperative evaluation to rule out surgical contraindication Stage 3b chronic kidney disease (CKD) Subtherapeutic international normalized ratio (INR) Tachycardia Urinary incontinence, overflow Venous insufficiency Vision problems Walker as ambulation aid Weakness Home Medications acetaminophen 325 mg capsule 650 mg PO PRN PRN Pain 12/02/21 [History Last Taken 07/08/22] amlodipine 10 mg tablet 10 mg PO DAILY BP #90 tabs 09/07/22 [Rx Last Taken Unknown] ascorbic acid (vitamin C) 500 mg tablet (Vitamin C) 500 mg PO DAILY vitamin #90 tabs 09/07/22 [Rx Last Taken Unknown] aspirin 81 mg chewable tablet 81 mg PO BREAKFAST Heart #90 tabs 09/07/22 [Rx Last Taken Unknown] cholecalciferol (vitamin D3) 50 mcg (2,000 unit) capsule 50 mcg PO DAILY vitamin#90 caps 09/07/22 [Rx Last Taken Unknown] ferrous sulfate 325 mg (65 mg iron) tablet 325 mg PO DAILY Supplement #90 tabs 09/07/22 [Rx Last Taken Unknown] glimepiride 4 mg tablet 4 mg PO BID dm 3 months #180 tabs 09/07/22 [Rx Last Taken Unknown] metformin 1,000 mg tablet 1,000 mg PO BID DM #180 tabs 09/07/22 [Rx Last Taken Unknown] multivitamin 1 tab PO DAILY SUPPLEMENT #90 tabs 09/07/22 [Rx Last Taken Unknown] oxybutynin chloride 15 mg tablet,extended release 24 hr 15 mg PO BID bladder #180 tabs 09/07/22 [Rx Last Taken Unknown] sertraline 100 mg tablet (Zoloft) 100 mg PO DAILY anxiety #90 tabs 09/07/22 [Rx Last Taken Unknown] atorvastatin 20 mg tablet (Lipitor) 20 mg PO DAILY Check with primary doctor 09/09/22 [History Last Taken Unknown] diltiazem HCl 240 mg capsule,extended release 24 hr (Cardizem CD) 240 mg PO DAILY heart 09/09/22 [History Last Taken Unknown] furosemide 20 mg tablet 20 mg PO DAILY #30 tabs 09/15/22 [Rx Last Taken Unknown] metoprolol succinate 100 mg tablet,extended release 24 hr 100 mg PO BID Check with primary doctor #60 tabs 09/29/22 [Rx Last Taken Unknown] WOUND CARE #1 ea 10/06/22 [Rx Last Taken Unknown] apixaban 5 mg tablet 5 mg PO BID blood thinner #180 tabs 10/15/22 [Rx Last Taken Unknown] nystatin 100,000 unit/gram topical powder 1 applic topical BID PRN Rash 10/26/22[History Last Taken Unknown] Allergy/AdvReac Type Severity Reaction Status Date / Time fosinopril [From Monopril] Allergy Unknown Other Verified 10/26/22 09:23 pioglitazone AdvReac Other Verified 10/26/22 09:23 Family History Father Diabetes High cholesterol Heart disease Melanoma Hypertension Mother Heart disease Brother AIDS (acquired immune deficiency syndrome) Surgical History History of amputation of finger of right hand History of back surgery History of back surgery History of carpal tunnel release History of carpal tunnel release History of hand surgery History of hysterectomy History of hysterectomy History of left elbow replacement History of left elbow replacement History of surgical amputation of finger of right hand Hx of colonoscopy S/P hysterectomy S/P ORIF (open reduction internal fixation) fracture Status post surgical amputation of finger of right hand Social History household members: none Smoking Status: Never smoker how long ago did patient quit smokin years ago alcohol intake: current alcohol intake frequency: holidays/special occasions only substance use type: does not use what type of physical activity do you participate in: other details: aquasize Vital Signs Vital Signs Vital Signs: 10/26/22 09:11 Temperature 96.7 F L Temperature Source Temporal Pulse Rate 65 Respiratory Rate 16 Blood Pressure 120/48 L Blood Pressure Mean 72 Blood Pressure Source Monitor Blood Pressure Position Sitting Blood Pressure Location Left Arm Oxygen Delivery Method Room Air Weight Weight: 185 lb Body Mass Index (BMI) 34.9 Physical Exam Const alert, oriented x3, no apparent distress and well nourished Constitutional Narrative: The patient is mildly obese. General Appearance: cooperative, comfortable and well developed Orientation / Consciousness: awake, oriented to person, oriented to place and oriented to time HEENT normocephalic and head/scalp atraumatic Head and Scalp: normal to inspection, normocephalic and atraumatic External Ear: external ears normal Eyes PERRL and EOMs intact bilaterally General Eye: normal appearance of both eyes Resp normal respiratory effort, normal air movement, no retractions and no use of accessory muscles Effort and Inspection: able to speak in complete sentences Extremity no calf tenderness General Extremity: Negative for clubbing or cyanosis Skin Wound Narrative: Mild swelling and edema are noted in the patient's lower extremities bilaterally. Multiple small, superficial ulcerations are noted in both lower extremities, between knee and ankle. There is slight erythema associated with some of the ulcerations. Pedal pulses are strong by Doppler signal assessment. The location and dimensions of the ulcerations are documented elsewhere. There is a moderate amount of bioburden associated with each of the ulcerations. Neuro oriented x3, CN's II-XII intact bilaterally and moves all extremities Sensorium / Orientation: awake, alert, oriented to person, oriented to place andoriented to time Psych Appearance: grossly normal and appropriate Attitude: calm Activity / Motor Behavior: appropriate eye contact Speech: normal speech Mood & Affect: euthymic mood Thought Process: normal thought process Thought Content: normal thought content Attention / Concentration: attention grossly intact Debridement Note Debridement Note Wound debrided: Multiple, small superficial ulcerations in the lower extremitiesbilateral Laterality: Not Applicable (Bilateral) Type of Debridement: Excisional debridement Anesthesia Used: 5% Lidocaine Gel Depth: Down to and including healthy tissue and in the subcutaneous layer Percentage of wound debrided: 100 Instrument Used: 5mm curette Tissue Removed: Bioburden and nonviable tissue Severity: Fat Layer Exposed Amount of bleeding with debridement: Mild Bleeding Controlled with: Compression and gauze Patient tolerated procedure: Patient tolerated procedure well Debridement Free Text: Because of mild erythema associated with some of the patient's ulcerations, and her recent history of MRSA, swab cultures were obtained for both aerobic and anaerobic bacterial growth. Culture results will be awaited. Post-Debridement Measurements and Additional Note: Post-Debridement Measurements/Treatment - Nurse 1 - General Ulcer Assessment Start: 10/26/22 09:11 Freq: Status: Active Protocol: DENG Activity Type Activity Date Activity User E-sign Co-sign Detail Recorded Client Recorded Date Recorded By Document 10/26/22 09:11 [facility] [id number] 10/26/22 09:22 [facility] 10/26/22 09:11 - Today's Visit Information Type of service Initial Visit Arrival Mode Ambulatory, Walker Transfer Assistance None Patient Identification Verified (Name & Yes ) Patient Requires Transmission-Based No Precautions Height and Weight Height 5 ft 1 in Weight 185 lb Weight in Pounds 185.0 lbs Body Mass Index (BMI) 34.9 BMI Classification Obese BSA - Florina 1.83 Vital Signs Temperature (97.8 F-99.1 F) 96.7 F L Temperature Source Temporal Pulse Rate (60-100) 65 Pulse Location Monitor Respiratory Rate (12-18) 16 Respiratory rate source Observation Oxygen Delivery Method Room Air Blood Pressure (90/60-120/80) 120/48 L Blood Pressure Mean 72 Source Monitor Position Sitting Blood Pressure Location Left Arm History Since Last Visit- (Skip if this is Patient's initial visit) Left Footwear Regular Shoe Right Footwear Regular Shoe Pain Scale: 0-10 Numeric Is Patient Pain Free? Yes Lower Extremity Assessment/ Foot Assessment/ Toe Nail Assessment Right -Posterior Tibial Doppler Multiphasic -Dorsalis Pedis Doppler Multiphasic -Extremity Color Pale -Hair Growth on Legs Yes -Hair Growth on Toes No -Temperature of Extremity Cool -Other Deformity No -Prior Foot Ulcer No -Charcot Joint No -Prior Amputation No -Thick Yes -Discolored Yes -Deformed No -Improper Length & Hygeine No Left -Posterior Tibial Doppler Monophasic -Dorsalis Pedis Doppler Monophasic -Extremity Color Pale -Hair Growth on Legs Yes -Hair Growth on Toes Yes -Temperature of Extremity Cool -Thick Yes -Discolored Yes -Deformed No -Improper Length & Hygeine No Communication Assessment Preferred language Tanz[place] 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 Required No Able to Read Yes Able to Write Yes Communication Tools None Right Hearing Abillity Normal Left Hearing Abillity Normal Teaching Assessment Preferences Verbal,Written, Audio/Visual, Demonstration Barriers to Learning None Readiness To Learn Excellent Willingness to Engage in Self Management High Activies Readiness to Engage in Self Management High Activities Anxiety Level Calm Cooperation Cooperative Perception Coherent Interest in Health Problem Asks Questions Education Importance Acknowledges Need Does Patient Smoke tobacco or other No substances Smoking Status Never smoker Is Patient Diabetic Yes WC - Nurse 1 - General Ulcer Measurement Start: 10/26/22 09:11 Freq: Status: Active Protocol: Activity Type Activity Date Activity User E-sign Co-sign Detail Recorded Client Recorded Date Recorded By Document 10/26/22 09:11 [facility] [id number] 10/26/22 09:22 BMF Edit Result 10/26/22 09:11 BMF (1) [id number] 10/26/22 09:33 BMF (1) #5- L GR TOE - Combined with other wound => No - Current Size (cm) - Length => 0.5 - Current Size (cm) - Width => 0.5 - Current Size (cm) - Depth => 0.3 - Total Square Cm => 0.25 - Date of Last Picture (Recall this => 10/26/22 field) - Photo Taken => Yes - Epithelialization => None Present - Tunneling => No - Undermining/Tunneling => No - Circular Undermining => No - Exudate Amt => None Present - Wound Margin => Distinct, Outline => Attached - Granulation Amt => Large (67-100%) - Granulation Quality => Red - Slough/Fibrin => Yes - Necrotic Tissue Type => Adherent Slough - Texture (Jessica-wound Skin Appearance) => Callus,Scarring - Moisture (Jessica-wound Skin Appearance) => Assessed,Dry/Scaly - Color (Jessica-wound Skin Appearance) => Assessed - Temperature (Jessica-wound Skin => No Abnormality (Pt Appearance) => Warm) - Tenderness on Palpation (Jessica-wound => No Skin Appearance) - Ulcer Cleansing => Rinsed/Irrigated => with Saline - Foul Odor after Cleansing => No - Anesthetic Used => 5% Lidocaine Gel 10/26/22 09:11 Wound Center Nurse 1 #5- L GR TOE -Combined with other wound No -Current Size (cm) - Length 0.5 -Current Size (cm) - Width 0.5 -Current Size (cm) - Depth 0.3 -Total Square Cm 0.25 -Date of Last Picture (Recall this 10/26/22 field) -Photo Taken Yes -Epithelialization None Present -Tunneling No -Undermining/Tunneling No -Circular Undermining No -Exudate Amt None Present -Wound Margin Distinct, Outline Attached -Granulation Amt Large (67-100%) -Granulation Quality Red -Slough/Fibrin Yes -Necrotic Tissue Type Adherent Slough -Texture (Jessica-wound Skin Appearance) Callus,Scarring -Moisture (Jessica-wound Skin Appearance) Assessed,Dry/ Scaly -Color (Jessica-wound Skin Appearance) Assessed -Temperature (Jessica-wound Skin No Abnormality Appearance) (Pt Warm) -Tenderness on Palpation (Jessica-wound No Skin Appearance) -Ulcer Cleansing Rinsed/ Irrigated with Saline -Foul Odor after Cleansing No -Anesthetic Used 5% Lidocaine Gel #4- L MED LE CLUSTER -Combined with other wound No -Current Size (cm) - Length 14.5 -Current Size (cm) - Width 7 -Current Size (cm) - Depth 0.1 -Total Square Cm 101.5 -Date of Last Picture (Recall this 10/26/22 field) -Photo Taken Yes -Epithelialization None Present -Tunneling No -Undermining/Tunneling No -Circular Undermining No -Exudate Amt Small -Exudate Type Sanguineous -Wound Margin Distinct, Outline Attached -Granulation Amt Medium (34-66%) -Granulation Quality Red -Slough/Fibrin Yes -Necrosis Amt Medium (34-66%) -Necrotic Tissue Type Adherent Slough -Texture (Jessica-wound Skin Appearance) Assessed, Scarring -Moisture (Jessica-wound Skin Appearance) Assessed -Color (Jessica-wound Skin Appearance) Assessed -Temperature (Jessica-wound Skin No Abnormality Appearance) (Pt Warm) -Tenderness on Palpation (Jessica-wound No Skin Appearance) -Ulcer Cleansing Rinsed/ Irrigated with Saline -Foul Odor after Cleansing No -Anesthetic Used 4% Lidocaine Solution #3- L LAT LE CLUSTER -Combined with other wound No -Current Size (cm) - Length 5.4 -Current Size (cm) - Width 2 -Current Size (cm) - Depth 0.1 -Total Square Cm 10.8 -Date of Last Picture (Recall this 10/26/22 field) -Photo Taken Yes -Epithelialization None Present -Tunneling No -Undermining/Tunneling No -Circular Undermining No -Exudate Amt Small -Exudate Type Sanguineous -Wound Margin Distinct, Outline Attached -Granulation Amt Medium (34-66%) -Granulation Quality Red -Slough/Fibrin Yes -Necrosis Amt Medium (34-66%) -Necrotic Tissue Type Eschar -Texture (Jessica-wound Skin Appearance) Assessed, Scarring -Moisture (Jessica-wound Skin Appearance) Assessed -Color (Jessica-wound Skin Appearance) Assessed -Temperature (Jessica-wound Skin No Abnormality Appearance) (Pt Warm) -Tenderness on Palpation (Jessica-wound No Skin Appearance) -Ulcer Cleansing Rinsed/ Irrigated with Saline -Foul Odor after Cleansing No -Anesthetic Used 4% Lidocaine Solution #2- RLE CLUSTER -Combined with other wound No -Current Size (cm) - Length 14.5 -Current Size (cm) - Width 9 -Current Size (cm) - Depth 0.1 -Total Square Cm 130.5 -Date of Last Picture (Recall this 10/26/22 field) -Photo Taken Yes -Epithelialization None Present -Tunneling No -Undermining/Tunneling No -Circular Undermining No -Exudate Amt Small -Exudate Type Sanguineous -Wound Margin Distinct, Outline Attached -Granulation Amt Medium (34-66%) -Granulation Quality Red -Slough/Fibrin Yes -Necrosis Amt Medium (34-66%) -Necrotic Tissue Type Eschar -Texture (Jessica-wound Skin Appearance) Assessed, Scarring -Moisture (Jessica-wound Skin Appearance) Assessed -Color (Jessica-wound Skin Appearance) Assessed -Temperature (Jessica-wound Skin No Abnormality Appearance) (Pt Warm) -Tenderness on Palpation (Jessica-wound No Skin Appearance) -Ulcer Cleansing Rinsed/ Irrigated with Saline -Foul Odor after Cleansing No -Anesthetic Used 4% Lidocaine Solution -Wound Comment(s) SOME ARE SCABBED. PT PICKS/SCRATCHES Lower Limb Edema Present Yes Right Calf (cm) 36.2 Right Ankle (cm) 23 Left Calf (cm) 37.5 Left Ankle (cm) 23.2 Assessment/Plan Assessment/Plan (1) Bilateral leg ulcer: CODE(S): L97.919 - Non-pressure chronic ulcer of unspecified part of rightlower leg with unspecified severity; L97.929 - Non-pressure chronic ulcer of unspecified part of left lower leg with unspecified severity QUALIFIERS: Non-pressure ulcer stage: with fat layer exposed Qualified Code(s): L97.912 - Non-pressure chronic ulcer of unspecified part of right lower leg with fat layer exposed; L97.922 - Non-pressure chronic ulcer of unspecified part of left lower leg with fat layer exposed (2) CKD (chronic kidney disease): CODE(S): N18.9 - Chronic kidney disease, unspecified (3) Acute on chronic heart failure: CODE(S): I50.9 - Heart failure, unspecified (4) Paroxysmal A-fib: CODE(S): I48.0 - Paroxysmal atrial fibrillation (5) Chronic anticoagulation: CODE(S): Z79.01 - retirement (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 (6) Hyperlipidemia: CODE(S): E78.5 - Hyperlipidemia, unspecified (7) Essential hypertension: CODE(S): I10 - Essential (primary) hypertension (8) Non-rheumatic mitral valve stenosis: CODE(S): I34.2 - Nonrheumatic mitral (valve) stenosis (9) Nonrheumatic aortic (valve) stenosis: CODE(S): I35.0 - Nonrheumatic aortic (valve) stenosis (10) History of cerebrovascular accident: CODE(S): Z86.73 - Personal history of transient ischemic attack (TIA), andcerebral infarction without residual deficits (11) Pulmonary hypertension: CODE(S): I27.20 - Pulmonary hypertension, unspecified (12) Renal insufficiency: CODE(S): N28.9 - Disorder of kidney and ureter, unspecified (13) Type II diabetes mellitus: CODE(S): E11.9 - Type 2 diabetes mellitus without complications (14) Obstructive sleep apnea: CODE(S): G47.33 - Obstructive sleep apnea (adult) (pediatric) (15) Urinary incontinence, overflow: CODE(S): N39.490 - Overflow incontinence (16) Hypertriglyceridemia: CODE(S): E78.1 - Pure hyperglyceridemia (17) Failure to thrive: (18) Venous insufficiency: CODE(S): I87.2 - Venous insufficiency (chronic) (peripheral) (19) Osteoporosis: CODE(S): M81.0 - Age-related osteoporosis without current pathological fracture QUALIFIERS: Osteoporosis type: age-related Presence of current pathological fracture: without current pathological fracture Qualified Code(s):M81.0 - Age-related osteoporosis without current pathological fracture (20) Debility: CODE(S): R53.81 - Other malaise (21) History of back surgery: CODE(S): Z98.890 - Other specified postprocedural states (22) History of carpal tunnel release: CODE(S): Z98.890 - Other specified postprocedural states (23) History of hysterectomy: CODE(S): Z90.710 - Acquired absence of both cervix and uterus (24) History of left elbow replacement: CODE(S): Z96.622 - Presence of left artificial elbow joint (25) History of amputation of finger of right hand: CODE(S): Z89.021 - Acquired absence of right finger(s) PLAN: Plan This is a 72-year-old diabetic female with multiple pre-existing medical problems, which are listed herein. She presents with multiple small, superficial ulcerations in her lower extremities bilaterally. 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 Picking and scratching at her ulcerations has been strongly discouraged. The patient has been urged to elevate her lower extremities is much as possible. Elevation is to be to heart level, or higher. She is to continue sleeping on a flat mattress at night. Elevation is to occur during daytime hours as well. Prolonged idle sitting has been discouraged. Activity has been encouraged. We are to implement the use of Promogran topically to eachof the superficial ulcerations in the lower extremities. So as to help prevent scratching and picking on the part of the patient, we are to use 3M 2 layer compression wraps, which will be changed twice weekly with the Promogran. The patient is to return in 1 week for reevaluation. We will await the results of swab cultures for aerobic and anaerobic bacterial growth, with concern that the patient has recently been treated for a MRSA infection related to a right middlefinger amputation. She has been encouraged to follow-up with her fold skiver, Dr. Wayne Spencer, relative to an ulceration on her right great toe. 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 Bernie Reagan MD Status:R EG RCR Location: History of Present Illness Date of Service: 09/20/22 Chief Complaint: Right long finger ulcer History of Wound: This 72-year-old white female was seen in the emergency room at [facility] for redness and drainage of a right third finger amputation stump site and positive MRSA blood cultures. She was seen in the emergency room 3 days prior and sent home on Keflex but the wound culture came back positive for MRSA and the prescription was changed from Keflex to Bactrim, the morning she was seen in the ER this admission, her blood culture was positive for Staph aureus and she was called to the ED for evaluation. Blood work showed a normal white blood cell count, patient's creatinine was elevated at 2.33 and BUN was 68 patient's blood sugar was 167. 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 Patient was admitted to PCU for anonhealing amputation stump MRSA ulcer with exposed bone suspicious for osteomyelitis and started on IV antibiotics. She has diabetes mellitus and is atrisk for worsening infection that may extend to other parts of the hand which may lead to stiffness and difficulty with range of motion. Surgery 07/12/22 - Surgical preparation right long finger amputation stump ulcer with incision and drainage and excisional debridement MRSA abscess and partial ostectomy middle phalanx for osteomyelitis. Operative tissue cultures positive for Enterobacter cloacae complex and MRSA. Operative bone cultures positive for MRSA and MRSE. She was discharged home on 07/15/22 with a PICC line and IV Vancomycin and oral Cipro. She was seen by ID while hospitalized and is to follow up with him in 2 weeks. She has home health and friends to help with the IV antibiotics and dressing changes. Today she denies fever, chills, nausea or vomiting. Progress of Wound: Right long finger ulcer is healed. She was sent to the ED after her last appointment here and spent over a week in the hospital after her last visit. Shestates that she is feeling much better. She had pneumonia and Afib RVR. She was discharged home on 09/15/22. Objective Data Objective Data Vital Signs: Vital Signs Temp Pulse Resp BP 95.7 F L 52 L 16 151/61 H 09/20/22 10:45 09/20/22 10:45 09/20/22 10:45 09/20/22 10:45 Weight: 185 lb Body Mass Index (BMI) 34.9 Charges/Coding Visit Charges Office Visits / Consults: 59846 OV L3 Est Physical Exam Const alert, oriented x3 and no apparent distress General Appearance: cooperative HEENT normocephalic Head and Scalp: atraumatic Eyes General Eye: normal appearance of both eyes Lymph Lymphatic: no lymphedema noted Resp normal respiratory effort and clear to auscultation bilaterally Effort and Inspection: able to speak in complete sentences Cardio regular rate and regular rhythm GI non-tender Extremity normal capillary refill Skin Wound Narrative: Right long finger ulcer is healed. She is not able to bend her long finger at PIP joint. Neuro CN's II-XII intact bilaterally Psych affect normal Appearance: grossly normal Debridement Note Debridement Note Post-Debridement Measurements and Additional Note: Post-Debridement Measurements/Treatment - Nurse 1 - General Ulcer Assessment Start: 09/20/22 10:44 Freq: Status: Active Protocol: DENG Activity Type Activity Date Activity User E-sign Co-sign Detail Recorded Client Recorded Date Recorded By Document 09/20/22 10:45 [facility] [id number] 09/20/22 10:46 [facility] 09/20/22 10:45 - Today's Visit Information Type of service Follow-up Visit (Physician/PANTOGRAPH WATCHER ) Arrival Mode Ambulatory, Walker Patient Identification Verified (Name & Yes ) Patient Requires Transmission-Based No Precautions Height and Weight Body Mass Index (BMI) 34.9 BMI Classification Obese Vital Signs Temperature (97.8 F-99.1 F) 95.7 F L Temperature Source Temporal Pulse Rate (60-100) 52 L Pulse Location Monitor Respiratory Rate (12-18) 16 Respiratory rate source Observation Blood Pressure (90/60-120/80) 151/61 H Blood Pressure Mean (mm Hg) 91 Source Monitor Position Semi-Fowlers Blood Pressure Location Left Arm History Since Last Visit- (Skip if this is Patient's initial visit) Have you changed medications since your Yes last visit? Any new allergies or adverse reactions No Had a fall/change in ADL's that may No increase risk of falls Signs or symptoms of abuse and/or No neglect since last visit Have you been in the hospital since your Yes last visit? Has dressing in place as prescribed Yes Has compression in place as prescribed N/A Has offloadiing in place as prescribed N/A Experienced any changes in pain level or No management Left Footwear Regular Shoe Right Footwear Regular Shoe Pain Scale: 0-10 Numeric Is Patient Pain Free? Yes WC - Nurse 1 - General Ulcer Measurement Start: 09/20/22 10:44 Freq: Status: Active Protocol: Activity Type Activity Date Activity User E-sign Co-sign Detail Recorded Client Recorded Date Recorded By Document 09/20/22 10:45 [facility] [id number] 09/20/22 10:46 [facility] 09/20/22 10:45 Wound Center Nurse 1 #1- R 3RD FINGER (POST OP) -Combined with other wound No -Current Size (cm) - Length 0.1 -Current Size (cm) - Width 0.1 -Current Size (cm) - Depth 0.1 -Total Square Cm 0.01 -Photo Taken Yes -Epithelialization Large 67-100% -Tunneling No -Undermining/Tunneling No -Circular Undermining No -Exudate Type Purulent -Wound Margin Flat & Intact -Granulation Amt None Present (0 %) -Slough/Fibrin Yes -Necrosis Amt Large (67-100%) -Necrotic Tissue Type Adherent Slough -Structure Exposed N/A -Texture (Jessica-wound Skin Appearance) Assessed -Moisture (Jessica-wound Skin Appearance) Assessed,Dry/ Scaly -Color (Jessica-wound Skin Appearance) Assessed -Temperature (Jessica-wound Skin No Abnormality Appearance) (Pt Warm) -Tenderness on Palpation (Jessica-wound No Skin Appearance) -Ulcer Cleansing Rinsed/ Irrigated with Saline -Foul Odor after Cleansing No -Anesthetic Used 5% Lidocaine Gel Lower Limb Edema Present NA - Nurse 2 - General Ulcer CM Notes Start: 09/20/22 10:44 Freq: Status: Active Protocol: Activity Type Activity Date Activity User E-sign Co-sign Detail Recorded Client Recorded Date Recorded By Document 09/20/22 10:52 [facility] [id number] 09/20/22 10:56 [facility] 09/20/22 10:52 Wound Center Nurse 2 #1- R 3RD FINGER (POST OP) -Correct Patient No -Correct Side, Site, Position No -Correct Procedure No -Procedure Performed No -Post Debridement (cm) - Length 0 -Post Debridement (cm) - Width 0 -Post Debridement (cm) - Depth 0 -Total Square (Post) (cm) 0 -Area of Debridement (cm) - Length 0 -Area of Debridement (cm) - Width 0 -Total Square (Area) (cm) 0 -Wound/Ulcer Outcome Healed- Epithelialized Pain Scale: 0-10 Numeric Is Patient Pain Free? Yes - Nurse 3 - General Ulcer D/C NN Start: 09/20/22 10:44 Freq: Status: Active Protocol: Activity Type Activity Date Activity User E-sign Co-sign Detail Recorded Client Recorded Date Recorded By Document 09/20/22 10:56 [facility] [id number] 09/20/22 10:57 [facility] 09/20/22 10:56 Is Patient Pain Free? Yes - Visit Discharge Discharge Condition Stable Ambulatory Status Ambulatory, Walker Transportation Private Auto Medication Reconcilliation completed & No provided to patient/care provider Clinical Summary of Care Provided No Assessment/Plan Assessment/Plan (1) Skin ulcer of finger: CODE(S): L98.499 - Non-pressure chronic ulcer of skin of other sites with unspecified severity (2) Osteomyelitis of finger of right hand: CODE(S): M86.9 - Osteomyelitis, unspecified (3) retirement (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: CODE(S): Z79.01 - 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 (4) MRSA infection: CODE(S): A49.02 - Methicillin resistant Staphylococcus aureus infection, unspecified site (5) Diabetes: CODE(S): E11.9 - Type 2 diabetes mellitus without complications (6) Type II diabetes mellitus: CODE(S): E11.9 - Type 2 diabetes mellitus without complications PLAN: Plan Patient evaluated at the wound healing center today. Her right long finger ulcer is healed. Encouraged range of motion. She is not able to bend the PIP joint of her right long finger. She states that it doesn't bother her. She is to follow up as needed. Will discharge her today from the wound healing center. 09/22/22 1049 <Electronically signed by Génesis Patel NP LEAD DESIGNER-C> Cosigner Signature (if applicable): CC: ~ Signed [facility] Work Phone: 1(485) 402-393505-02-[address] Lopez [facility] September 14, 2022 3:43pm Note Date/Time September 14, 2022 11:24a [facility] Medical Records Department [address] [place] [id number] Progress Note 09/14/22 1118 MR#: [id number] Acct: [id number] Name: JOSELINE ELLIS Rep #:[id number] 3 : 1950 72 From: Kisha Lopez MD PCP: Dr. Bernie Reagan MD Status:A DM IN Location: [place] [address] Subjective Subjective Patient seen and examined. He has no complaints. Patient has remained tachycardic at a heart rate was up in the 130s yesterday. She is on Cardizem and metoprolol. She denies any chest pain, lightheadedness, dizziness, nausea vomiting or any other symptoms. Review of systems otherwise negative. Objective Data Objective Data Vital Signs: Vital Signs Temp Pulse Resp BP Pulse Ox O2 Del Method O2 Flow Rate 98.1 F 95 18 100/76 97 Room Air 3 09/14/22 10:09/14/22 10:00 09/14/22 10:09/14/22 10:00 09/14/22 10:09/14/22 10:00 09/12/22 10:00 Oxygen Flow Rate (L/min) 3 Oxygen Delivery Method Room Air Weight: 191 lb 4.792 oz Body Mass Index (BMI) 36.1 Intake & Output: Intake and Output for Last 24 Hours 09/12/22 09/13/22 09/14/22 23:59 23:59 23:59 Intake Total 1985 / 2385 1500 / 1500 Output Total 2900 / 2900 1400 / 1400 300 / 300 Balance -915 / -515 100 / 100 -300 / -300 Lab / Micro Data Result Diagrams: 09/14/22 05:40 09/14/22 05:40 Labs: Laboratory Results - last 24 hr 09/13/22 13:02: POC Glucose > 500 H* 09/13/22 13:20: Glucose 551 H* 09/13/22 16:36: POC Glucose 101 09/13/22 21:13: POC Glucose 188 H 09/14/22 05:40: WBC 8.6, RBC 4.10 L, Hgb 11.0 L, Hct 35.2 L, MCV 85.9, MCH 26.8 L, MCHC 31.3 L, RDW Std Deviation 48.9 H, RDW Coeff of Zee 15.5 H, Plt Count 248, MPV 10.4, Immature Gran % (Auto) 0.300, Neut % (Auto) 59.8, Lymph % (Auto) 27.8, [place] % (Auto) 5.2, Eos % (Auto) 6.3 H, Baso % (Auto) 0.6, Absolute Neuts (auto) 5.1, Absolute Lymphs (auto) 2.39, Nucleated RBC % 0 09/14/22 05:40: Sodium 140, Potassium 3.8, Chloride 108 H, Carbon Dioxide 26.0, Anion Gap 6, BUN 50 H, Creatinine 1.57 H, Estim Creat Clear Calc 25.16, Est GFR (MDRD) Af Amer 42 L, Est GFR (MDRD) Non-Af 35 L, BUN/Creatinine Ratio 31.8 H, Glucose 171 H, Calcium 9.0 09/14/22 06:35: POC Glucose 169 H Micro: Microbiology 09/09/22 20:00 Blood Culture (Wb) - Right Hand Blood Culture - Preliminary No growth in 48 hours. 09/09/22 15:30 Blood Culture (Wb) - Left Forearm Blood Culture - Preliminary No growth in 48 hours. 09/10/22 11:30 Mucosa - Nasopharyngeal Respiratory Panel (PCR) - Final 09/09/22 16:30 Urine, Clean Catch Urine Culture - Final Mixed Gram Pos & Gram Neg Org 09/09/22 17:13 Mucosa - Nose Respiratory Panel (PCR) - Final 09/09/22 16:30 Urine, Clean Catch Legionella Antigen - Final 09/09/22 16:30 Urine, Clean Catch Streptococcus pneumoniae Antigen (M - Final 09/09/22 14:55 Nasal Secretion SARS-CoV-2 Antigen (Rapid) - Final Rhythm Strip Rhythm Strip: A-fib Physical Exam Const alert, oriented x3, no apparent distress, healthy appearing and well nourished General Appearance: cooperative, well kempt and well developed HEENT normocephalic, head/scalp atraumatic, hearing grossly normal bilaterally and moist oral mucous membranes Eyes PERRL, EOMs intact bilaterally and conjunctivae normal Neck no lymphadenopathy, supple, no JVD and thyroid normal General: trachea midline Lymph Lymphatic: no lymphadenopathy noted and no lymphedema noted Resp clear to auscultation bilaterally Resp Narrative: mildly diminished breath sounds bibasally, no wheezes or crackles. Auscultation: crackles; Negative for rales, rhonchi or wheezes Cardio regular rhythm, S1 normal heart sound, S2 normal heart sound, no murmurs, no rub, no gallops and no clicks Cardio Narrative: tachypneic GI normal to inspection, nondistended, normoactive bowel sounds, soft to palpation,non-tender and non-distended Extremity normal capillary refill, no clubbing, cyanosis or edema and no calf tenderness Extremity Narrative: 1+ bilateral lower extremity pitting edema, no clubbing or cyanosis, patient reports edema is her chronic baseline amount Skin no rashes or lesions noted, No no wounds, skin turgor normal, no jaundice, no petechiae and no mottling General Skin Exam: no breakdown Neuro oriented x3, CN's II-XII intact bilaterally, moves all extremities, no focal motor deficits and no sensory deficits noted Sensorium / Orientation: awake, alert, oriented to person, oriented to place andoriented to time Motor Exam: strength 5/5 throughout Psych thought process normal, cooperative and affect normal Appearance: appropriate Assessment & Plan Assessment/Plan (1) Elevated brain natriuretic peptide (BNP) level: (2) Acute and chronic respiratory failure with hypoxia: PLAN: Plan #ACute hypoxic respiratory failure due to community-acquired pneumonia and acuteon chronic heart failure preserved ejection fraction * Feeling much better. hypotension resolved.. * Now switched to oral antibiotics. * titrate oxygen to maintain sats >90% * breathing treatment with bronchodilators * lasix held due to hypotension * cardiology consulted; pateint started on SGLT2 inhibitor * #Tachycardia in setting of afib * Still tachycardic with heart rate up in the 130s. Give a dose of IV digoxin 0.5 mg x 1. * Still on Cardizem and metoprolol. Cardiology consulted to adjust meds if possible. * On Coumadin. * will monitor INR * #Hypotension:resolved. Likely due to overdiuresis #Hypercoagulable state due to patient being on Coumadin: We will monitor INR. #Type 2 diabetes mellitus: On insulin sliding scale. Accu-Cheks ACHS. #CKD stage IIIb: Creatinine at baseline. Will monitor .DVT prophylaxis: Not indicated as patient is on Coumadin. Total time spent on evaluation and management of patient, reviewing chart and specialist notes, discussing plan with patient, discussion with nursing and ancillary staff as well as documentation:40 mins Charges/Coding Visit Charges Inpatient E&M: 91848 Subs Hosp L2 09/14/22 1543 <Electronically signed by Kisha Lopez MD> Kisha Lopez MD Cosigner Signature (if applicable): CC: ~ Signed [facility] Work Phone: 1([phone]) 936-730105-02-[address] Lopez [facility] September 14, 2022 3:42pm Note Date/Time September 13, 2022 11:51a m [facility] Medical Records Department [address] [place] [address] Progress Note 09/13/22 1149 MR#: [id number] Acct: [id number] Name: JOSELINE ELLIS Rep #:[id number] 1 : 1950 72 From: Kisha Lopez MD PCP: Dr. Bernie Reagan MD Status:A DM IN Location: [place] [address] Subjective Subjective Patient seen and examined. She has no complaints and had an uneventful night andreview of systems is otherwise negative. Later in the morning she was noted to be hypotensive and tachypneic after she received her afib meds. Objective Data Objective Data Vital Signs: Vital Signs Temp Pulse Resp BP Pulse Ox O2 Del Method O2 Flow Rate 97.7 F L 138 H 16 91/30 L 93 Room Air 3 09/13/22 09:16 09/13/22 11:10 09/13/22 09:16 09/13/22 11:10 09/13/22 11:10 09/13/22 11:10 09/12/22 10:00 Oxygen Flow Rate (L/min) 3 Oxygen Delivery Method Room Air Weight: 191 lb 4.792 oz Body Mass Index (BMI) 36.1 Intake & Output: Intake and Output for Last 24 Hours 09/11/22 09/12/22 09/13/22 23:59 23:59 23:59 Intake Total 1005 / 1485 1985 / 2385 500 / 500 Output Total 1850 / 3050 2900 / 2900 1200 / 1200 Balance -845 / -1565 -915 / -515 -700 / -700 Lab / Micro Data Result Diagrams: 09/14/22 05:40 09/14/22 05:40 Labs: Laboratory Results - last 24 hr 09/12/22 11:39: POC Glucose 398 H 09/12/22 15:56: POC Glucose 155 H 09/12/22 20:59: POC Glucose 261 H 09/13/22 06:32: PT 23.9 H, INR 2.1 09/13/22 06:32: Sodium 137, Potassium 3.9, Chloride 105, Carbon Dioxide 25.0, Anion Gap 7, BUN 51 H, Creatinine 1.53 H, Estim Creat Clear Calc 25.82, Est GFR (MDRD) Af Amer 43 L, Est GFR (MDRD) Non-Af 36 L, BUN/Creatinine Ratio 33.3 H, Glucose 163 H, Calcium 9.3 09/13/22 06:40: POC Glucose 174 H Micro: Microbiology 09/09/22 20:00 Blood Culture (Wb) - Right Hand Blood Culture - Preliminary No growth in 48 hours. 09/09/22 15:30 Blood Culture (Wb) - Left Forearm Blood Culture - Preliminary No growth in 48 hours. 09/10/22 11:30 Mucosa - Nasopharyngeal Respiratory Panel (PCR) - Final 09/09/22 16:30 Urine, Clean Catch Urine Culture - Final Mixed Gram Pos & Gram Neg Org 09/09/22 17:13 Mucosa - Nose Respiratory Panel (PCR) - Final 09/09/22 16:30 Urine, Clean Catch Legionella Antigen - Final 09/09/22 16:30 Urine, Clean Catch Streptococcus pneumoniae Antigen (M - Final 09/09/22 14:55 Nasal Secretion SARS-CoV-2 Antigen (Rapid) - Final Radiography Diagnostic Testing: Radiology Impression Chest X-Ray 09/13/22 08:40 IMPRESSION: The lungs are now clear. Electronically Signed: Jordan Jones MD at 9:02 EDT , Physical Exam Const alert, oriented x3 and no apparent distress HEENT normocephalic, head/scalp atraumatic and moist oral mucous membranes Eyes PERRL and EOMs intact bilaterally Neck no lymphadenopathy and supple Lymph Lymphatic: no lymphadenopathy noted and no lymphedema noted Resp normal respiratory effort, normal air movement and clear to auscultation bilaterally Cardio regular rate, S1 normal heart sound, S2 normal heart sound and no murmurs Cardio Narrative: tachypneic GI normal to inspection, nondistended, normoactive bowel sounds, soft to palpation,non-tender and non-distended Extremity normal capillary refill, no clubbing, cyanosis or edema and no calf tenderness Skin General Skin Exam: no breakdown Neuro CN's II-XII intact bilaterally, no focal motor deficits and no sensory deficits noted Motor Exam: strength 5/5 throughout Psych thought process normal, cooperative and affect normal Appearance: appropriate Assessment & Plan Assessment/Plan (1) Paroxysmal atrial fibrillation: PLAN: Plan #Acute hypoxic respiratory failure due to community-acquired pneumonia and acuteon chronic heart failure preserved ejection fraction * Feeling much better. Blood pressure running low so we will hold Lasix. * Now switched to oral antibiotics. * titrate oxygen to maintain sats >90% * breathing treatment with bronchodilators * #Tachycardia in setting of afib * recieved her afib meds this morning. Subsequently noted to be hypotensive with BP down in the 90s systolic * Will give a bolus of normal saline 1 L and see if the heart rate will improve as well as the hypotension as I suspect this is all related to the hypotension * if it doesnt improve, will adjust meds * #Hypotension: Likely due to overdiuresis. Hold Lasix and BP meds. Patient being given a bolus of normal saline. Will monitor. #Hypercoagulable state due to patient being on Coumadin: We will monitor INR. #Type 2 diabetes mellitus: On insulin sliding scale. Accu-Cheks ACHS. #CKD stage IIIb: Creatinine at baseline. Will monitor .DVT prophylaxis: Not indicated as patient is on Coumadin. Total time spent on evaluation and management of patient, reviewing chart and specialist notes, discussing plan with patient, discussion with nursing and ancillary staff as well as documentation:42 mins Charges/Coding Visit Charges Inpatient E&M: 63562 Subs Hosp L2 09/14/22 1542 <Electronically signed by Kisha Lopez MD> Kisha Lopez MD Cosigner Signature (if applicable): CC: ~ Signed [facility] Work Phone: 1(707) 291-906805-02-[address] Connor [facility] September 14, 2022 10:12am Note Date/Time September 14, 2022 10:12a m [facility] Medical Records Department [address] [place] [address] Consultation - Cardiology 09/14/22 1004 MR#: [id number] Acct: [id number] Name: JOSELINE ELLIS Rep #:[id number] 5 : 1950 72 From: Yobany Connor MD PCP: Dr. Bernie Reagan MD Status:A DM IN Location: [place] [address] Assessment & Plan Assessment/Plan (1) Paroxysmal atrial fibrillation: PLAN: Continue metoprolol and diltiazem for heart rate control. On warfarin forprevention of thromboembolic phenomenon. (2) Acute on chronic heart failure with preserved ejection fraction (HFpEF): PLAN: Improved. Change Lasix to 40 mg p.o. daily. Start SGLT2 inhibitors. (3) Hypertension: PLAN: Controlled. It is noted that the patient is both on amlodipine and diltiazem. Stop amlodipine. (4) CVA (cerebral vascular accident): PLAN: History of CVA in the past. On aspirin. On warfarin. (5) Urinary tract infection: PLAN: As per internal medicine. On antibiotics. (6) Diabetes mellitus: PLAN: As per internal medicine. HPI Consult Data Date of Consult: 09/14/22 HPI Narrative Reason for Consultation: Atrial fibrillation HPI Narrative: The patient has past medical history significant for paroxysmal atrial fibrillation and heart failure with preserved ejection fraction. She presented to the hospital with complaints of increasing shortness of breath. Denies any ankle edema. No orthopnea. No PND. Positive cough which was nonproductive. She was admitted to the hospital with diagnosis of diastolic heart failure and UTI. Patient denies any chest pains either at rest or with exertion. No palpitations. At home patient is on warfarin for her paroxysmal atrial fibrillation. FOR[facility]LY [facility], [facility] Medical History Abnormal mammogram of right breast Abscess of right middle finger Acute kidney injury Alcohol use Anemia Anxiety Anxiety and depression Arthritis Atrial fib/flutter, transient Atrial fibrillation Back pain Bacteremia Breast lump Burn injury of skin of finger Cardiology follow-up encounter Chronic back pain Chronic cough COVID-19 vaccine series completed CPAP (continuous positive airway pressure) dependence CVA (cerebral vascular accident) Depression Depression with anxiety Dietary restriction DKA (diabetic ketoacidoses) Essential hypertension Finger infection Flu vaccine need Former smoker Health care maintenance History of echocardiogram History of edema History of stress test History of UTI Hyperlipidemia Irregular heartbeat Kidney disease retirement (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 MRSA infection 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 without evidence of necrosis Non-rheumatic mitral valve stenosis Nonrheumatic aortic (valve) stenosis Osteoarthritis Osteomyelitis of finger of right hand Osteoporosis Overactive bladder Pancreatitis Paroxysmal atrial fibrillation Paroxysmal atrial fibrillation with RVR Post-menopausal Preoperative evaluation to rule out surgical contraindication Stage 3b chronic kidney disease (CKD) Tachycardia Urinary incontinence, overflow Venous insufficiency Vision problems Walker as ambulation aid Weakness Home Medications acetaminophen 325 mg capsule 650 mg PO PRN PRN Pain 12/02/21 [History Last Taken 07/08/22] amlodipine 10 mg tablet 10 mg PO DAILY BP #90 tabs 09/07/22 [Rx Last Taken Unknown] ascorbic acid (vitamin C) 500 mg tablet (Vitamin C) 500 mg PO DAILY vitamin #90 tabs 09/07/22 [Rx Last Taken Unknown] aspirin 81 mg chewable tablet 81 mg PO BREAKFAST Heart #90 tabs 09/07/22 [Rx Last Taken Unknown] cholecalciferol (vitamin D3) 50 mcg (2,000 unit) capsule 50 mcg PO DAILY vitamin#90 caps 09/07/22 [Rx Last Taken Unknown] ferrous sulfate 325 mg (65 mg iron) tablet 325 mg PO DAILY Supplement #90 tabs 09/07/22 [Rx Last Taken Unknown] glimepiride 4 mg tablet 4 mg PO BID dm 3 months #180 tabs 09/07/22 [Rx Last Taken Unknown] metformin 1,000 mg tablet 1,000 mg PO BID DM #180 tabs 09/07/22 [Rx Last Taken Unknown] multivitamin 1 tab PO DAILY SUPPLEMENT #90 tabs 09/07/22 [Rx Last Taken Unknown] oxybutynin chloride 15 mg tablet,extended release 24 hr 15 mg PO BID bladder #180 tabs 09/07/22 [Rx Last Taken Unknown] sertraline 100 mg tablet (Zoloft) 100 mg PO DAILY anxiety #90 tabs 09/07/22 [Rx Last Taken Unknown] atorvastatin 20 mg tablet (Lipitor) 20 mg PO DAILY Check with primary doctor 09/09/22 [History Last Taken Unknown] cephalexin 500 mg capsule 500 mg PO Q8H Check with primary doctor 09/09/22 [History Last Taken Unknown] diltiazem HCl 240 mg capsule,extended release 24 hr (Cardizem CD) 240 mg PO DAILY heart 09/09/22 [History Last Taken Unknown] metoprolol succinate 100 mg tablet,extended release 24 hr 100 mg PO BID Check with primary doctor 09/09/22 [History Last Taken Unknown] warfarin 3 mg tablet 3 mg PO DAILY Check with primary doctor 09/09/22 [History Last Taken Unknown] warfarin 6 mg tablet 6 mg PO QWEEK Check with primary doctor 09/09/22 [History Last Taken Unknown] Allergy/AdvReac Type Severity Reaction Status Date / Time fosinopril [From Monopril] Allergy Unknown unknown Verified 09/09/22 14:34 pioglitazone AdvReac Other Verified 09/09/22 14:34 Family History Father Diabetes High cholesterol Heart disease Melanoma Hypertension Mother Heart disease Brother AIDS (acquired immune deficiency syndrome) Surgical History History of back surgery History of carpal tunnel release History of hand surgery History of hysterectomy History of left elbow replacement History of surgical amputation of finger of right hand Hx of colonoscopy S/P hysterectomy S/P ORIF (open reduction internal fixation) fracture Status post surgical amputation of finger of right hand Social History household members: none Smoking Status: Former smoker how long ago did patient quit smokin years ago alcohol intake: current alcohol intake frequency: holidays/special occasions only substance use type: does not use what type of physical activity do you participate in: other details: aquasize Physical Exam Narrative Comfortable. No distress. Heart sounds 1 and 2 are noted. Irregularly irregular. Chest clear to auscultation bilaterally. Abdomen soft. Alert oriented x3. Trace bilateral ankle edema noted. Risk Stratification Risk Stratification Applicable: No Objective Data Vital Signs: Vital Signs Temp Pulse Resp BP Pulse Ox O2 Del Method O2 Flow Rate 98.3 F 125 H 18 94/62 97 Room Air 3 09/14/22 07:35 09/14/22 08:12 09/14/22 07:35 09/14/22 07:35 09/14/22 07:35 09/14/22 08:29 09/12/22 10:00 Oxygen Flow Rate (L/min) 3 Oxygen Delivery Method Room Air Weight: 191 lb 4.792 oz Body Mass Index (BMI) 36.1 Intake & Output: Intake and Output for Last 24 Hours 09/12/22 09/13/22 09/14/22 23:59 23:59 23:59 Intake Total 1985 / 2385 1500 / 1500 Output Total 2900 / 2900 1400 / 1400 300 / 300 Balance -915 / -515 100 / 100 -300 / -300 Lab / Micro Data Result Diagrams: 09/14/22 05:40 09/14/22 05:40 Labs: Laboratory Results - last 24 hr 09/13/22 13:02: POC Glucose > 500 H* 09/13/22 13:20: Glucose 551 H* 09/13/22 16:36: POC Glucose 101 09/13/22 21:13: POC Glucose 188 H 09/14/22 05:40: WBC 8.6, RBC 4.10 L, Hgb 11.0 L, Hct 35.2 L, MCV 85.9, MCH 26.8 L, MCHC 31.3 L, RDW Std Deviation 48.9 H, RDW Coeff of Zee 15.5 H, Plt Count 248, MPV 10.4, Immature Gran % (Auto) 0.300, Neut % (Auto) 59.8, Lymph % (Auto) 27.8, [place] % (Auto) 5.2, Eos % (Auto) 6.3 H, Baso % (Auto) 0.6, Absolute Neuts (auto) 5.1, Absolute Lymphs (auto) 2.39, Nucleated RBC % 0 09/14/22 05:40: Sodium 140, Potassium 3.8, Chloride 108 H, Carbon Dioxide 26.0, Anion Gap 6, BUN 50 H, Creatinine 1.57 H, Estim Creat Clear Calc 25.16, Est GFR (MDRD) Af Amer 42 L, Est GFR (MDRD) Non-Af 35 L, BUN/Creatinine Ratio 31.8 H, Glucose 171 H, Calcium 9.0 09/14/22 06:35: POC Glucose 169 H Rhythm Strip Rhythm Strip: A-fib Cardiology Labs/Tests 09/13/22 13:20: Glucose 551 H* 09/14/22 05:40: WBC 8.6, RBC 4.10 L, Hgb 11.0 L, Hct 35.2 L, MCV 85.9, MCH 26.8 L, MCHC 31.3 L, Plt Count 248, MPV 10.4, Immature Gran % (Auto) 0.300, Neut % (Auto) 59.8, Lymph % (Auto) 27.8, [place] % (Auto) 5.2, Eos % (Auto) 6.3 H, Baso % (Auto) 0.6, Absolute Neuts (auto) 5.1, Nucleated RBC % 0 09/14/22 05:40: Sodium 140, Potassium 3.8, Chloride 108 H, Carbon Dioxide 26.0, Anion Gap 6, BUN 50 H, Creatinine 1.57 H, Est GFR (MDRD) Af Amer 42 L, Est GFR (MDRD) Non-Af 35 L, BUN/Creatinine Ratio 31.8 H, Glucose 171 H, Calcium 9.0 Rhythm: Presently atrial fibrillation with controlled ventricular response. EKG: ECG on admission showed normal sinus rhythm. ECHO: Stress Test: Cardiac Cath: PCI: CT Surgery: Holter monitor: EPS: PPM: CXR: Chest CT Scan: 09/14/22 1012 <Electronically signed by Yobany Connor MD> Cosigner Signature (if applicable): CC: Dr. Yobany Connor MD; Dr. Bernie Reagan MD; Dr. Omayra Cho DO; Dr. Nadja Jasmine DO~ Signed [facility] Work Phone: [phone]) 669-343604-30-[address] Jasmine [facility] September 12, 2022 1:44pm Note Date/Time September 12, 2022 1:4 4pm [facility] Medical Records Department [address] [place] [address] Progress Note - Hospitalist 09/12/22 1340 MR#: [id number] Acct: [id number] Name: JOSELINE ELLIS Rep #:[id number] 2 : 1950 72 From: Nadja Jasmine DO PCP: Dr. Bernie Reagan MD Status:A DM IN Location: [place] [address] Reason for Visit Reason for Visit: Diagnoses Sepsis, unspecified organism (09/09/22) Elevated white blood cell count, unspecified (09/09/22) Acidosis, unspecified (09/09/22) Pneumonia, unspecified organism (09/09/22) Acute and chronic respiratory failure with hypoxia (09/09/22) Urinary tract infection, site not specified (09/09/22) Abnormal coagulation profile (09/09/22) Other specified abnormal findings of blood chemistry (09/09/22) Subjective Subjective Was seen and examined today, she remains afebrile, blood cultures are negative so far. I have made the decision to change her to oral antibiotics at this time. Patient is still getting IV diuresis, she still requires 3 L of oxygen via nasal cannula at this time. Objective Data Objective Data Vital Signs: Vital Signs Temp Pulse Resp BP Pulse Ox O2 Del Method O2 Flow Rate 97.8 F 120 H 25 H 131/92 H 97 Nasal Cannula 3 09/12/22 10:00 09/12/22 11:35 09/12/22 11:35 09/12/22 10:00 09/12/22 10:00 09/12/22 10:00 09/12/22 10:00 Oxygen Flow Rate (L/min) 3 Oxygen Delivery Method Nasal Cannula Weight: 86.772 kg Body Mass Index (BMI) 36.1 Intake & Output: Intake and Output for Last 24 Hours 09/10/22 09/11/22 09/12/22 23:59 23:59 23:59 Intake Total 1055 / 1055 1005 / 1485 530 / 530 Output Total 1100 / 1100 1850 / 3050 1700 / 1700 Balance -45 / -45 -845 / -1565 -1170 / -1170 Lab / Micro Data Result Diagrams: 09/10/22 05:20 09/12/22 05:36 Labs: Laboratory Results - last 24 hr 09/11/22 16:55: POC Glucose 263 H 09/11/22 20:27: POC Glucose 274 H 09/12/22 05:36: Sodium 139, Potassium 3.9, Chloride 105, Carbon Dioxide 26.0, Anion Gap 8, BUN 54 H, Creatinine 1.70 H, Estim Creat Clear Calc 23.24, Est GFR (MDRD) Af Amer 38 L, Est GFR (MDRD) Non-Af 32 L, BUN/Creatinine Ratio 31.8 H, Glucose 144 H, Calcium 9.7 09/12/22 06:23: POC Glucose 142 H 09/12/22 11:39: POC Glucose 398 H Micro: Microbiology 09/09/22 20:00 Blood Culture (Wb) - Right Hand Blood Culture - Preliminary No growth in 48 hours. 09/09/22 15:30 Blood Culture (Wb) - Left Forearm Blood Culture - Preliminary No growth in 48 hours. 09/10/22 11:30 Mucosa - Nasopharyngeal Respiratory Panel (PCR) - Final 09/09/22 16:30 Urine, Clean Catch Urine Culture - Final Mixed Gram Pos & Gram Neg Org 09/09/22 17:13 Mucosa - Nose Respiratory Panel (PCR) - Final 09/09/22 16:30 Urine, Clean Catch Legionella Antigen - Final 09/09/22 16:30 Urine, Clean Catch Streptococcus pneumoniae Antigen (M - Final 09/09/22 14:55 Nasal Secretion SARS-CoV-2 Antigen (Rapid) - Final Physical Exam Narrative alert, oriented x3, no apparent distress and healthy appearing General Appearance: cooperative, well kempt and well developed Orientation / Consciousness: awake, oriented to person, oriented to place and oriented to time HEENT normocephalic, head/scalp atraumatic and moist oral mucous membranes Eyes PERRL, EOMs intact bilaterally and conjunctivae normal Neck supple, no JVD, thyroid normal and no carotid bruits General: trachea midline Resp normal respiratory effort, no retractions and no use of accessory muscles Resp Narrative: Decreased breath sounds are noted at the bases bilaterally Auscultation: Negative for rales, rhonchi or wheezes Cardio regular rate, regular rhythm, S1 normal heart sound, S2 normal heart sound, no murmurs, no rub and no gallops GI normal to inspection, nondistended, normoactive bowel sounds, soft to palpation,non-tender and non-distended Extremity no clubbing, cyanosis or edema Skin no rashes or lesions noted General Skin Exam: no breakdown Neuro oriented x3, CN's II-XII intact bilaterally, moves all extremities, no focal motor deficits and no sensory deficits noted Sensorium / Orientation: awake, alert, oriented to person, oriented to place andoriented to time Speech: speech normal Psych affect normal Assessment & Plan Assessment/Plan (1) Elevated brain natriuretic peptide (BNP) level: (2) Acute and chronic respiratory failure with hypoxia: PLAN: Plan 1. Acute hypoxic respiratory failure secondary to pneumonia and acute congestive heart failure with preserved ejection fraction-patient will remain on IV Lasix, I will change her IV antibiotics to oral antibiotics, she will be reevaluated in the morning, she may have to be DC'd home on home oxygen. Patient does not want to go to a nursing home facility #2 paroxysmal atrial fibrillation-patient is on rate limiting medications and anticoagulation at this time #3 hypercoagulable state secondary to #2-patient is on warfarin, INR will be monitored as necessary #4 type 2 diabetes-fingerstick blood sugars will be monitored, sliding scale insulin will be given as needed #5 chronic kidney disease stage IIIb-monitor labs as necessary, complicates care, medical course, recovery, and prognosis #6 hypokalemia-corrected at this time Clinical time spent by myself addressing the patient's medical issues, reviewingall of her data, and collaborating with the patient's care team: 37 minutes Charges/Coding Visit Charges Inpatient E&M: 42437 Subs Hosp L2 09/12/22 1344 <Electronically signed by Nadja Jasmine DO> Cosigner Signature (if applicable): CC: ~ Signed [facility] Work Phone: 1(283) [phone] Jasmine [facility] September 11, 2022 10:56am Note Date/Time September 11, 2022 10: 56am [facility] Medical Records Department [address] [place] [address] Progress Note - Hospitalist 09/11/22 1051 MR#: [id number] Acct: [id number] Name: OJSELINE ELLIS Rep #:[id number] 5 : 1950 72 From: Nadja Jasmine DO PCP: Dr. Bernie Reagan MD Status:A DM IN Location: [place] [address] Reason for Visit Reason for Visit: Diagnoses Sepsis, unspecified organism (09/09/22) Elevated white blood cell count, unspecified (09/09/22) Acidosis, unspecified (09/09/22) Pneumonia, unspecified organism (09/09/22) Acute and chronic respiratory failure with hypoxia (09/09/22) Urinary tract infection, site not specified (09/09/22) Abnormal coagulation profile (09/09/22) Other specified abnormal findings of blood chemistry (09/09/22) Subjective Subjective Patient was seen and examined today, she is still requiring supplemental oxygen at this time, she appears comfortable and is not complaining of any fever, chills, or shortness of breath. Objective Data Objective Data Vital Signs: Vital Signs Temp Pulse Resp BP Pulse Ox O2 Del Method O2 Flow Rate 97.6 F L 89 18 148/84 H 93 Nasal Cannula 4 09/11/22 09:25 09/11/22 09:31 09/11/22 09:25 09/11/22 09:31 09/11/22 09:30 09/11/22 09:25 09/11/22 09:30 Oxygen Flow Rate (L/min) 4 Oxygen Delivery Method Nasal Cannula Weight: 86.772 kg Body Mass Index (BMI) 36.1 Intake & Output: Intake and Output for Last 24 Hours 09/09/22 09/10/22 09/11/22 23:59 23:59 23:59 Intake Total 845 / 845 1055 / 1055 355 / 355 Output Total 700 / 700 1100 / 1100 250 / 250 Balance 145 / 145 -45 / -45 105 / 105 Lab / Micro Data Result Diagrams: 09/10/22 05:20 09/11/22 07:40 Labs: Laboratory Results - last 24 hr 09/10/22 11:00: POC Glucose 338 H 09/10/22 16:11: POC Glucose 419 H 09/10/22 21:02: POC Glucose 250 H 09/11/22 06:11: POC Glucose 169 H 09/11/22 07:40: PT 31.5 H, INR 3.0 09/11/22 07:40: Sodium 137, Potassium 3.3 L, Chloride 106, Carbon Dioxide 26.0, Anion Gap 5, BUN 48 H, Creatinine 1.56 H, Estim Creat Clear Calc 25.32, Est GFR (MDRD) Af Amer 42 L, Est GFR (MDRD) Non-Af 35 L, BUN/Creatinine Ratio 30.8 H, Glucose 147 H, Calcium 9.7 Micro: Microbiology 09/09/22 15:30 Blood Culture (Wb) - Left Forearm Blood Culture - Preliminary No growth in 48 hours. 09/10/22 11:30 Mucosa - Nasopharyngeal Respiratory Panel (PCR) - Final 09/09/22 16:30 Urine, Clean Catch Urine Culture - Final Mixed Gram Pos & Gram Neg Org 09/09/22 17:13 Mucosa - Nose Respiratory Panel (PCR) - Final 09/09/22 16:30 Urine, Clean Catch Legionella Antigen - Final 09/09/22 16:30 Urine, Clean Catch Streptococcus pneumoniae Antigen (M - Final 09/09/22 14:55 Nasal Secretion SARS-CoV-2 Antigen (Rapid) - Final Physical Exam Narrative alert, oriented x3, no apparent distress and healthy appearing General Appearance: cooperative, well kempt and well developed Orientation / Consciousness: awake, oriented to person, oriented to place and oriented to time HEENT normocephalic, head/scalp atraumatic and moist oral mucous membranes Eyes PERRL, EOMs intact bilaterally and conjunctivae normal Neck supple, no JVD, thyroid normal and no carotid bruits General: trachea midline Resp normal respiratory effort, no retractions and no use of accessory muscles Resp Narrative: Decreased breath sounds are noted at the bases bilaterally Auscultation: Negative for rales, rhonchi or wheezes Cardio regular rate, regular rhythm, S1 normal heart sound, S2 normal heart sound, no murmurs, no rub and no gallops GI normal to inspection, nondistended, normoactive bowel sounds, soft to palpation,non-tender and non-distended Extremity no clubbing, cyanosis or edema Skin no rashes or lesions noted General Skin Exam: no breakdown Neuro oriented x3, CN's II-XII intact bilaterally, moves all extremities, no focal motor deficits and no sensory deficits noted Sensorium / Orientation: awake, alert, oriented to person, oriented to place andoriented to time Speech: speech normal Psych affect normal Assessment & Plan Assessment/Plan (1) Acute and chronic respiratory failure with hypoxia: (2) Elevated brain natriuretic peptide (BNP) level: PLAN: Plan 1. Acute hypoxic respiratory failure secondary to pneumonia and acute congestive heart failure with preserved ejection fraction-patient will continue on IV diuretics and IV antibiotics, patient's respiratory panel was negative forpathogens, her Legionella and strep antigens were also negative. I have electedto keep the patient on Zithromax and Zosyn for now #2 paroxysmal atrial fibrillation-patient is on rate limiting medications and anticoagulation at this time #3 hypercoagulable state secondary to #2-patient is on warfarin, INR will be monitored as necessary #4 type 2 diabetes-fingerstick blood sugars will be monitored, sliding scale insulin will be given as needed #5 chronic kidney disease stage IIIb-monitor labs as necessary, complicates care, medical course, recovery, and prognosis #6 hypokalemia-patient's potassium was 3.3 today, I will give additional oral potassium Clinical time spent by myself addressing the patient's medical issues, reviewingall of her data, and collaborating with the patient's care team: 36 minutes Charges/Coding Visit Charges Inpatient E&M: 15799 Subs Hosp L2 09/11/22 1056 <Electronically signed by Nadja Jasmine DO> Cosigner Signature (if applicable): CC: ~ Signed [facility] Work Phone: 1(502) 916-542004-28-[address] Jasmine [facility] September 10, 2022 6:56pm Note Date/Time September 10, 2022 6:4 2pm [facility] Medical Records Department [address] [place] [address] Progress Note - Hospitalist 09/10/22 1840 MR#: [id number] Acct: [id number] Name: JOSELINE ELLIS Rep #:[id number] : 1950 72 From: Nadja Jasmine DO PCP: Dr. Bernie Reagan MD Status:A DM IN Location: [place] [address] Reason for Visit Reason for Visit: Diagnoses Sepsis, unspecified organism (09/09/22) Elevated white blood cell count, unspecified (09/09/22) Acidosis, unspecified (09/09/22) Pneumonia, unspecified organism (09/09/22) Acute and chronic respiratory failure with hypoxia (09/09/22) Urinary tract infection, site not specified (09/09/22) Abnormal coagulation profile (09/09/22) Other specified abnormal findings of blood chemistry (09/09/22) Subjective Subjective Patient was seen and examined today, she remains on supplemental oxygen at 7 L, I have elected to stop the patient's vancomycin-I do not think she needs this medication. Patient's white blood cell count today was 8.5 Objective Data Objective Data Vital Signs: Vital Signs Temp Pulse Resp BP Pulse Ox O2 Del Method O2 Flow Rate 97.9 F 74 25 H 141/70 H 92 High Flow 7 09/10/22 17:00 09/10/22 17:00 09/10/22 17:00 09/10/22 17:00 09/10/22 17:00 09/10/22 17:00 09/10/22 17:00 Oxygen Flow Rate (L/min) 7 Oxygen Delivery Method High Flow Weight: 86.772 kg Body Mass Index (BMI) 36.1 Intake & Output: Intake and Output for Last 24 Hours 09/08/22 09/09/22 09/10/22 23:59 23:59 23:59 Intake Total 845 / 845 905 / 905 Output Total 700 / 700 800 / 800 Balance 145 / 145 105 / 105 Lab / Micro Data Result Diagrams: 09/10/22 05:20 09/10/22 05:20 Labs: Laboratory Results - last 24 hr 09/09/22 17:13: COVID-19 (ADE) Not Detected 09/09/22 20:00: Lactic Acid 1.2 09/09/22 21:04: POC Glucose 264 H 09/10/22 05:20: WBC 8.5, RBC 3.75 L, Hgb 10.3 L, Hct 32.6 L, MCV 86.9, MCH 27.5,MCHC 31.6 L, RDW Std Deviation 49.1 H, RDW Coeff of Zee 15.5 H, Plt Count 237, MPV 10.4, Immature Gran % (Auto) 0.500, Neut % (Auto) 94.9 H, Lymph % (Auto) 3.8L, [place] % (Auto) 0.7, Eos % (Auto) 0.0, Baso % (Auto) 0.1, Absolute Neuts (auto)8.1 H, Absolute Lymphs (auto) 0.32 L, Nucleated RBC % 0, Differential Comment SCANNED 09/10/22 05:20: Sodium 136, Potassium 4.1, Chloride 107, Carbon Dioxide 23.0, Anion Gap 6, BUN 38 H, Creatinine 1.53 H, Estim Creat Clear Calc 25.82, Est GFR (MDRD) Af Amer 43 L, Est GFR (MDRD) Non-Af 36 L, BUN/Creatinine Ratio 24.8 H, Glucose 325 H, Calcium 9.2, Phosphorus 3.4, Magnesium 2.2, Total Bilirubin 0.40,AST 15, ALT 31, Alkaline Phosphatase 63, Total Protein 6.6, Albumin 2.9 L, Globulin 3.7, Albumin/Globulin Ratio 0.8 L 09/10/22 06:38: POC Glucose 298 H 09/10/22 11:00: POC Glucose 338 H 09/10/22 16:11: POC Glucose 419 H Micro: Microbiology 09/10/22 11:30 Mucosa - Nasopharyngeal Respiratory Panel (PCR) - Final 09/09/22 16:30 Urine, Clean Catch Urine Culture - Final Mixed Gram Pos & Gram Neg Org 09/09/22 17:13 Mucosa - Nose Respiratory Panel (PCR) - Final 09/09/22 16:30 Urine, Clean Catch Legionella Antigen - Final 09/09/22 16:30 Urine, Clean Catch Streptococcus pneumoniae Antigen (M - Final 09/09/22 14:55 Nasal Secretion SARS-CoV-2 Antigen (Rapid) - Final Physical Exam Const alert, oriented x3, no apparent distress and healthy appearing General Appearance: cooperative, well kempt and well developed Orientation / Consciousness: awake, oriented to person, oriented to place and oriented to time HEENT normocephalic, head/scalp atraumatic and moist oral mucous membranes Eyes PERRL, EOMs intact bilaterally and conjunctivae normal Neck supple, no JVD, thyroid normal and no carotid bruits General: trachea midline Resp normal respiratory effort, no retractions and no use of accessory muscles Resp Narrative: Decreased breath sounds are noted at the bases bilaterally Auscultation: Negative for rales, rhonchi or wheezes Cardio regular rate, regular rhythm, S1 normal heart sound, S2 normal heart sound, no murmurs, no rub and no gallops GI normal to inspection, nondistended, normoactive bowel sounds, soft to palpation,non-tender and non-distended Extremity no clubbing, cyanosis or edema Skin no rashes or lesions noted General Skin Exam: no breakdown Neuro oriented x3, CN's II-XII intact bilaterally, moves all extremities, no focal motor deficits and no sensory deficits noted Sensorium / Orientation: awake, alert, oriented to person, oriented to place andoriented to time Speech: speech normal Psych affect normal Assessment & Plan Assessment/Plan (1) Elevated brain natriuretic peptide (BNP) level: PLAN: Plan 1. Acute hypoxic respiratory failure secondary to pneumonia and acute congestive heart failure with preserved ejection fraction-patient will continue on IV diuretics and IV antibiotics, patient's respiratory panel was negative forpathogens, her Legionella and strep antigens were also negative. #2 paroxysmal atrial fibrillation-patient is on rate limiting medications and anticoagulation at this time #3 hypercoagulable state secondary to #2-patient is on warfarin, INR will be monitored as necessary #4 type 2 diabetes-fingerstick blood sugars will be monitored, sliding scale insulin will be given as needed #5 chronic kidney disease stage IIIb-monitor labs as necessary, complicates care, medical course, recovery, and prognosis Clinical time spent by myself addressing the patient's medical issues, reviewingall of her data, and collaborating with the patient's care team: 37 minutes Charges/Coding Visit Charges Inpatient E&M: 09098 Subs Hosp L2 09/10/22 3598 <Electronically signed by Nadja Jasmine DO> Cosigner Signature (if applicable): CC: ~ Signed [facility] Work Phone: [phone]) 304-813504-27-[address] Cho [facility] September 09, 2022 6:46pm Note Date/Time September 09, 2022 6:3 1pm [facility] Medical Records Department [address] [place] [address] Pharmacokinetic/Renal -Consult 09/09/22 1829 MR#: [id number] Acct: [id number] Name: JOSELINE ELLIS Rep #:[id number] : 1950 72 From: Jose Guadalupe Childers [facility] PCP: Dr. Bernie Reagan MD Status:A DM IN Y Location: [place] [address] Consult Pharmacy has been consulted to manage selected antiobiotic: Vancomycin Type of Consult: New start Prior Doses of Antibiotics Received/Current Regimen: Medications Vancomycin HCl 2,000 mg/ (Sodium Chloride) 540 mls @ 250 mls/hr IV X1 ONE Stop: 09/09/22 18:39 Last Admin: 09/09/22 17:15 Dose: 250 mls/hr Labs: Sodium 136 mmol/L (136-145) 09/09/22 14:50 Potassium 5.0 mmol/L (3.5-5.1) 09/09/22 14:50 Chloride 108 mmol/L (98-107) H 09/09/22 14:50 Carbon Dioxide 24.0 mmol/L (21.0-32.0) 09/09/22 14:50 Anion Gap 4 (5-15) L 09/09/22 14:50 BUN 36 mg/dL (7-18) H 09/09/22 14:50 Creatinine 1.29 mg/dL (0.55-1.02) H 09/09/22 14:50 Est GFR (MDRD) Af Amer 52 mL/min (>60) L 09/09/22 14:50 Est GFR (MDRD) Non-Af 43 mL/min (>60) L 09/09/22 14:50 BUN/Creatinine Ratio 27.9 RATIO (10-20) H 09/09/22 14:50 Glucose 226 mg/dL (74-106) H 09/09/22 14:50 Microbiology: Microbiology 09/09/22 14:55 Nasal Secretion SARS-CoV-2 Antigen (Rapid) - Final Weight used for dosin kg Estimated Creatinine Clearance: 31 Goal Trough: 15-20 mcg/mL Pharmacy Plan for Drug Dosinmg given x1, 1250mg IV q12h with trough prior to 3rd dose per policy. Pharmacy Service will continue to monitor and adjust dosing as required. Follow-Up Labs: Trough Vancomycin - 09/11 @ 1630 09/09/22 183 <Electronically signed by Jose Guadalupe quinn > Date _ Jose Guadalupe Balbuena Maletich 09/09/22 1846 <Electronically signed by Omayra Washburn> Cosigner Signature (if applicable): Date Omayra Cho DO CC: ~ Signed [facility] Work Phone: [phone] Frances [facility] September 09, 2022 6:19pm Note Date/Time September 09, 2022 3:3 7pm [facility] Medical Records Department [address] [place] [address] Emergency Department Summary 09/09/22 MR#: [id number] Acct: [id number] Name: JOSELINE ELLIS Rep #:[id number] : 1950 72 From: Krishna Frances DO PCP: Dr. Bernie Reagan MD Status:A DM IN Location: [place] [address] HPI History of Present Illness Chief Complaint: Shortness of Breath Narrative Narrative: 72-year-old female presenting with shortness of breath. She states has been short of breath for the last 2 days. Denies fever, chills, body aches. Patientstates that she does not typically wear home oxygen. She states her oxygen was in the 80s at home. She is currently on 6 L and she is comfortable. She deniesany chest pain. Patient states that yesterday she felt as if she was wheezing. She denies a history of COPD but she was a previous smoker when she was younger. No history of asthma. Patient does have history of paroxysmal A-fib and is on Coumadin. Denies black or bloody stools. [facility] Medical History Abnormal mammogram of right breast Abscess of right middle finger Acute kidney injury Alcohol use Anemia Anxiety Anxiety and depression Arthritis Atrial fib/flutter, transient Atrial fibrillation Back pain Bacteremia Breast lump Burn injury of skin of finger Cardiology follow-up encounter Chronic back pain Chronic cough COVID-19 vaccine series completed CPAP (continuous positive airway pressure) dependence CVA (cerebral vascular accident) Depression Depression with anxiety Dietary restriction DKA (diabetic ketoacidoses) Essential hypertension Finger infection Flu vaccine need Former smoker Health care maintenance History of echocardiogram History of edema History of stress test History of UTI Hyperlipidemia Irregular heartbeat Kidney disease retirement (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 MRSA infection 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 without evidence of necrosis Non-rheumatic mitral valve stenosis Nonrheumatic aortic (valve) stenosis Osteoarthritis Osteomyelitis of finger of right hand Osteoporosis Overactive bladder Pancreatitis Paroxysmal atrial fibrillation Paroxysmal atrial fibrillation with RVR Post-menopausal Preoperative evaluation to rule out surgical contraindication Stage 3b chronic kidney disease (CKD) Tachycardia Urinary incontinence, overflow Venous insufficiency Vision problems Walker as ambulation aid Weakness Home Medications acetaminophen 325 mg capsule 650 mg PO PRN PRN Pain 12/02/21 [History Last Taken 07/08/22] amlodipine 10 mg tablet 10 mg PO DAILY BP #90 tabs 09/07/22 [Rx Last Taken Unknown] ascorbic acid (vitamin C) 500 mg tablet (Vitamin C) 500 mg PO DAILY vitamin #90 tabs 09/07/22 [Rx Last Taken Unknown] aspirin 81 mg chewable tablet 81 mg PO BREAKFAST Heart #90 tabs 09/07/22 [Rx Last Taken Unknown] cholecalciferol (vitamin D3) 50 mcg (2,000 unit) capsule 50 mcg PO DAILY vitamin#90 caps 09/07/22 [Rx Last Taken Unknown] ferrous sulfate 325 mg (65 mg iron) tablet 325 mg PO DAILY Supplement #90 tabs 09/07/22 [Rx Last Taken Unknown] glimepiride 4 mg tablet 4 mg PO BID dm 3 months #180 tabs 09/07/22 [Rx Last Taken Unknown] metformin 1,000 mg tablet 1,000 mg PO BID DM #180 tabs 09/07/22 [Rx Last Taken Unknown] multivitamin 1 tab PO DAILY SUPPLEMENT #90 tabs 09/07/22 [Rx Last Taken Unknown] oxybutynin chloride 15 mg tablet,extended release 24 hr 15 mg PO BID bladder #180 tabs 09/07/22 [Rx Last Taken Unknown] sertraline 100 mg tablet (Zoloft) 100 mg PO DAILY anxiety #90 tabs 09/07/22 [Rx Last Taken Unknown] atorvastatin 20 mg tablet (Lipitor) 20 mg PO DAILY Check with primary doctor 09/09/22 [History Last Taken Unknown] cephalexin 500 mg capsule 500 mg PO Q8H Check with primary doctor 09/09/22 [History Last Taken Unknown] diltiazem HCl 240 mg capsule,extended release 24 hr (Cardizem CD) 240 mg PO DAILY heart 09/09/22 [History Last Taken Unknown] metoprolol succinate 100 mg tablet,extended release 24 hr 100 mg PO BID Check with primary doctor 09/09/22 [History Last Taken Unknown] warfarin 3 mg tablet 3 mg PO DAILY Check with primary doctor 09/09/22 [History Last Taken Unknown] warfarin 6 mg tablet 6 mg PO QWEEK Check with primary doctor 09/09/22 [History Last Taken Unknown] Allergy/AdvReac Type Severity Reaction Status Date / Time fosinopril [From Monopril] Allergy Unknown unknown Verified 09/09/22 14:34 pioglitazone AdvReac Other Verified 09/09/22 14:34 Family History Father Diabetes High cholesterol Heart disease Melanoma Hypertension Mother Heart disease Brother AIDS (acquired immune deficiency syndrome) Surgical History History of back surgery History of carpal tunnel release History of hand surgery History of hysterectomy History of left elbow replacement History of surgical amputation of finger of right hand Hx of colonoscopy S/P hysterectomy S/P ORIF (open reduction internal fixation) fracture Status post surgical amputation of finger of right hand Social History household members: none Smoking Status: Former smoker how long ago did patient quit smokin years ago alcohol intake: current alcohol intake frequency: holidays/special occasions only substance use type: does not use what type of physical activity do you participate in: other details: aquasize ROS ROS ED Review of Systems ROS Unobtainable: Denies due to encephalopathy Constitutional Constitutional ED: Denies chills or fever(s) Eyes Eyes: Denies change in vision or diplopia ENT ENT ED: Denies rhinorrhea or sore throat Cardiovascular Cardiovascular: Denies chest pain or palpitations Respiratory/Chest Respiratory/Chest: Reports dyspnea and dyspnea on exertion; Denies cough Gastrointestinal Gastrointestinal: Denies abdominal pain, nausea or vomiting Musculoskeletal Musculoskeletal: Denies arthralgias or back pain Integumentary Denies abscess or Abrasions Neurologic Neurologic: Denies headache(s) or paresthesias Psychiatric Psychiatric: Denies anxiety EXAM Physical Exam Const Vital Signs: 09/09/22 14:31 09/09/22 14:43 09/09/22 14:49 Temperature 97.7 F L Temperature Source Temporal Pulse Rate 67 Respiratory Rate 20 H Respiratory Effort Short of Breath Respiratory Pattern Blood Pressure 138/88 H Blood Pressure Mean 104 Pulse Ox 85 91 Oxygen Delivery Method Room Air Nasal Cannula Oxygen Flow Rate (L/min) 6 09/09/22 15:00 09/09/22 15:00 09/09/22 15:41 Temperature Temperature Source Pulse Rate 62 Respiratory Rate 26 H 26 H Respiratory Effort Respiratory Pattern Tachypnea Blood Pressure Blood Pressure Mean Pulse Ox 91 91 Oxygen Delivery Method Nasal Cannula Oxygen Flow Rate (L/min) 6 09/09/22 16:32 09/09/22 16:32 Temperature 97.9 F Temperature Source Temporal Pulse Rate 69 Respiratory Rate 23 H Respiratory Effort Respiratory Pattern Blood Pressure 155/77 H 155/77 H Blood Pressure Mean 103 103 Pulse Ox 95 Oxygen Delivery Method Non-Rebreather @ 15L/min Oxygen Flow Rate (L/min) Positive well nourished HEENT Reports dry mucous membranes Mouth ED: Yes dry mucous membranes Mouth: dry mucous membranes Eyes PERRL and EOMs intact bilaterally Neck no lymphadenopathy and supple Resp Resp Narrative: Tachypneic. Speaking in full sentences. Auscultation: wheezes scattered wheezes Cardio regular rate and regular rhythm GI non-tender Extremity normal to inspection General Extremety ED: Negative for edema or tenderness General Extremity: Negative for edema Neuro oriented x3 and CN's II-XII intact bilaterally Sensorium / Orientation: alert Motor Exam: strength 5/5 throughout Psych mental status grossly normal Skin no wounds Sepsis Attestation Sepsis Alert: Yes Sepsis Attestation: Agree w/Sepsis Date exam was performed: 09/09/22 Time exam was performed: 18:17 Possible Source of Sepsis: Pulmonary Sepsis Organ Dysfunction Criteria Present: Acute Respiratory Failure (New need for BiPAP/CPAP or MV) and Lactic Acid > 2 mmol/L MDM MDM MDM Narrative Medical decision making narrative: 72-year-old female presenting with tachypnea, hypoxia. Sepsis work-up was pursued. She does state that she has been very short of breath. Differential includes COVID-19, influenza, pneumonia, ACS, CHF, PE. Patient's INR has been subtherapeutic. Patient reports no fevers or chills. CBC obtained shows leukocytosis of 12.6. Hemoglobin stable 11.8. Platelets are normal. Creatinine 1.29 did show some improvement. Potassium 5.0. CO2 24. Glucose 226without anion gap. LFTs are normal. BNP 272 and lower than previous. High-sensitivity troponin is 11. Urinalysis was negative for infection. Chest x-vicki my interpretation shows concern for multifocal pneumonia versus CHF. CTA of the chest was obtained which is concerning for CHF and multifocal pneumonia. Patient was covered with vancomycin and Zosyn given her MRSA history. Discussedwith hospitalist for admission. Impression: 1. Pneumonia 2. Hypoxic respiratory failure 3. Sepsis 4. CHF Lab Data Labs: Laboratory Results - last 24 hr 09/09/22 09/09/22 09/09/22 14:50 14:50 14:50 WBC 12.6 H RBC 4.34 Hgb 11.8 L Hct 38.3 MCV 88.2 MCH 27.2 MCHC 30.8 L RDW Std Deviation 50.3 H RDW Coeff of Zee 15.4 H Plt Count 275 MPV 10.4 Immature Gran % (Auto) 0.500 Neut % (Auto) 90.4 H Lymph % (Auto) 5.9 L [place] % (Auto) 2.2 Eos % (Auto) 0.6 Baso % (Auto) 0.4 Absolute Neuts (auto) 11.4 H Absolute Lymphs (auto) 0.74 L Nucleated RBC % 0 PT INR Sodium 136 Potassium 5.0 Chloride 108 H Carbon Dioxide 24.0 Anion Gap 4 L BUN 36 H Creatinine 1.29 H Estim Creat Clear Calc 30.62 Est GFR (MDRD) Af Amer 52 L Est GFR (MDRD) Non-Af 43 L BUN/Creatinine Ratio 27.9 H Glucose 226 H Lactic Acid Calcium 9.9 Total Bilirubin 0.40 Direct Bilirubin 0.12 AST 24 ALT 37 Alkaline Phosphatase 83 Troponin I High Sens 11 B-Natriuretic Peptide Total Protein 7.7 Albumin 3.4 Globulin 4.3 H Urine Color Urine Clarity Urine pH Ur Specific [place] Urine Protein Urine Glucose (UA) Urine Ketones Urine Occult Blood Urine Nitrite Urine Bilirubin Urine Urobilinogen Ur Leukocyte Esterase Urine RBC Urine WBC Ur Squamous Epith Cells Urine Bacteria Urine Mucus 09/09/22 09/09/22 09/09/22 14:50 14:50 15:35 WBC RBC Hgb Hct MCV MCH MCHC RDW Std Deviation RDW Coeff of Zee Plt Count MPV Immature Gran % (Auto) Neut % (Auto) Lymph % (Auto) [place] % (Auto) Eos % (Auto) Baso % (Auto) Absolute Neuts (auto) Absolute Lymphs (auto) Nucleated RBC % PT Cancelled INR Cancelled Sodium Potassium Chloride Carbon Dioxide Anion Gap BUN Creatinine Estim Creat Clear Calc Est GFR (MDRD) Af Amer Est GFR (MDRD) Non-Af BUN/Creatinine Ratio Glucose Lactic Acid 2.7 H* Calcium Total Bilirubin Direct Bilirubin AST ALT Alkaline Phosphatase Troponin I High Sens B-Natriuretic Peptide 272.2 H Total Protein Albumin Globulin Urine Color Urine Clarity Urine pH Ur Specific [place] Urine Protein Urine Glucose (UA) Urine Ketones Urine Occult Blood Urine Nitrite Urine Bilirubin Urine Urobilinogen Ur Leukocyte Esterase Urine RBC Urine WBC Ur Squamous Epith Cells Urine Bacteria Urine Mucus 09/09/22 09/09/22 15:45 16:30 WBC RBC Hgb Hct MCV MCH MCHC RDW Std Deviation RDW Coeff of Zee Plt Count MPV Immature Gran % (Auto) Neut % (Auto) Lymph % (Auto) [place] % (Auto) Eos % (Auto) Baso % (Auto) Absolute Neuts (auto) Absolute Lymphs (auto) Nucleated RBC % PT 20.0 H INR 1.7 Sodium Potassium Chloride Carbon Dioxide Anion Gap BUN Creatinine Estim Creat Clear Calc Est GFR (MDRD) Af Amer Est GFR (MDRD) Non-Af BUN/Creatinine Ratio Glucose Lactic Acid Calcium Total Bilirubin Direct Bilirubin AST ALT Alkaline Phosphatase Troponin I High Sens B-Natriuretic Peptide Total Protein Albumin Globulin Urine Color Yellow Urine Clarity Clear Urine pH 6.0 Ur Specific [place] 1.015 Urine Protein 30 H Urine Glucose (UA) Normal Urine Ketones Negative Urine Occult Blood Negative Urine Nitrite Negative Urine Bilirubin Negative Urine Urobilinogen Normal Ur Leukocyte Esterase 25 H Urine RBC 0 SEEN Urine WBC 0 SEEN Ur Squamous Epith Cells 0-5 SEEN Urine Bacteria 0 SEEN Urine Mucus 0 SEEN Radiography Diagnostic Testing: Clinical Impression(s) from Imaging Studies Chest X-Ray 09/09/22 15:05 IMPRESSION: Bilateral multiple areas of opacity concerning for multifocal infiltrates/pneumonia in the appropriate clinical setting. Other considerations would include scattered alveolar edema in the cardiogenic setting. Recommend follow-up imaging in 4-6 weeks after appropriate treatment to document resolution and exclude underlying pulmonary nodularity. Electronically Signed: Alexis Christian DO at 15:21 EDT , Chest CTA 09/09/22 16:46 IMPRESSION: 1. No evidence of pulmonary embolism or aortic dissection. 2. Scattered prominent central areas of groundglass opacity and airspace disease predominantly within the perihilar region and upper lobes and mildly within the lower lobes with small layering effusion most concerning for underlying alveolar edema in the setting of CHF, clinically correlate. In the infectious setting multifocal infiltrates/pneumonia is not excluded. 3. Lower esophageal prominent fluid bolus prior to GE junction. Electronically Signed: Alexis Christian DO at 18:07 EDT , Discharge Plan Disposition Disposition: Acute Care Hospital [facility] Discharge Date/Time: 09/09/22 17:36 What to do if you have Problems For any increased pain, shortness of breath, bleeding, nausea or vomiting, chestpain, or any unexpected problems, contact your Primary Care Provider. Call [facility] ([phone]) or report to the closest Emergency Room. Call 911 if necessary. 09/09/221818 <Electronically signed by Krishna Frnaces DO> Cosigner Signature (if applicable): CC: Dr. Bernie Reagan MD ~ Signed [facility] Work Phone: [phone] History and physical note Author Dr. Cho [facility] September 09, 2022 5:38pm Note Date/Time September 09, 2022 5:1 1pm [facility] Medical Records Department [address] [place] [address] H&P Exam - Hospitalist 09/09/22 1706 MR#: [id number] Acct: [id number] Name: JOSELINE ELLIS Rep #:[id number] : 1950 72 From: Omayra Cho DO PCP: Dr. Bernie Reagan MD Status:A DM IN Location: [facility] [id number] HPI - General General Date of Admission: 09/09/22 Date of Service: 09/09/22 Chief Complaint: Shortness of breath HPI Narrative JOSELINE ELLIS, is a 72 F who presented to the emergency department at [facility] on 09/09/2022 with a chief complaint of shortness of breath. Patient states that she has had increased shortness of breath for about 2 days now. She had some increased cough last night with no production of sputum. Shedenies any fever or chills, nausea vomiting, diarrhea or constipation, myalgias,malaise, orthopnea, dysuria but does states she has some urinary frequency, tingling, numbness, or focal weakness. She has had some mild generalized weakness. She normally does not wear oxygen. She has been compliant with her home medications. She does have a history of tobacco use. She did check her oxygen saturations prior to calling the squad and her sats were found to be 80% on room air at home. She does have some lower extremity edema however she reports this is not increased from her baseline. Vital signs on presentation show a temperature of 97.7, heart rate 67, blood pressure 138/88, respiratory rate been anywhere between 20 and 26 and oxygen saturation was 85% on room air. She initially was placed on 6 L with improvement to 91% however now is requiring a nonrebreather at 15 L/min. She seems comfortable on 15 L and sats are between 92 and 95%. CBC shows a leukocytosis with a white count of 12.6 and a left shift is present with a 90.4%neutrophilia. She has a mild anemia with a hemoglobin of 11.8. This is normocytic and chronic. Coags were obtained as the patient is on Coumadin and her INR was found to be 1.7. Chemistry panel shows normal electrolytes with an elevated BUN/creatinine at 36 and 1.29 which is her baseline. Serum glucose mal599. Her lactic acid was 2.7. Liver functions normal. Troponin was 11. BNP was 272.2 however this is dramatically improved from her most recent admission earlier this month. At that time her BNP was greater than 700. Her UA is not suggestive of infection however she had a urine culture done 5 days ago which isgrowing gram-negative rods (lactose nicker and breaker) and she has not been on antibiotics. EKG shows normal sinus rhythm without any ST-T wave changes concerning for acute ischemia and intervals are normal. Chest x-ray shows bilateral patchy multifocal infiltrates in both lung cunha. FOR[facility]LY [facility], [facility] Medical History Abnormal mammogram of right breast Abscess of right middle finger Acute kidney injury Alcohol use Anemia Anxiety Anxiety and depression Arthritis Atrial fib/flutter, transient Atrial fibrillation Back pain Bacteremia Breast lump Burn injury of skin of finger Cardiology follow-up encounter Chronic back pain Chronic cough COVID-19 vaccine series completed CPAP (continuous positive airway pressure) dependence CVA (cerebral vascular accident) Depression Depression with anxiety Dietary restriction DKA (diabetic ketoacidoses) Essential hypertension Finger infection Flu vaccine need Former smoker Health care maintenance History of echocardiogram History of edema History of stress test History of UTI Hyperlipidemia Irregular heartbeat 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 MRSA infection 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 without evidence of necrosis Non-rheumatic mitral valve stenosis Nonrheumatic aortic (valve) stenosis Osteoarthritis Osteomyelitis of finger of right hand Osteoporosis Overactive bladder Pancreatitis Paroxysmal atrial fibrillation Paroxysmal atrial fibrillation with RVR Post-menopausal Preoperative evaluation to rule out surgical contraindication Stage 3b chronic kidney disease (CKD) Tachycardia Urinary incontinence, overflow Venous insufficiency Vision problems Walker as ambulation aid Weakness Home Medications acetaminophen 325 mg capsule 650 mg PO PRN PRN Pain 12/02/21 [History Last Taken 07/08/22] amlodipine 10 mg tablet 10 mg PO DAILY BP #90 tabs 09/07/22 [Rx Last Taken Unknown] ascorbic acid (vitamin C) 500 mg tablet (Vitamin C) 500 mg PO DAILY vitamin #90 tabs 09/07/22 [Rx Last Taken Unknown] aspirin 81 mg chewable tablet 81 mg PO BREAKFAST Heart #90 tabs 09/07/22 [Rx Last Taken Unknown] cholecalciferol (vitamin D3) 50 mcg (2,000 unit) capsule 50 mcg PO DAILY vitamin#90 caps 09/07/22 [Rx Last Taken Unknown] ferrous sulfate 325 mg (65 mg iron) tablet 325 mg PO DAILY Supplement #90 tabs 09/07/22 [Rx Last Taken Unknown] glimepiride 4 mg tablet 4 mg PO BID dm 3 months #180 tabs 09/07/22 [Rx Last Taken Unknown] metformin 1,000 mg tablet 1,000 mg PO BID DM #180 tabs 09/07/22 [Rx Last Taken Unknown] multivitamin 1 tab PO DAILY SUPPLEMENT #90 tabs 09/07/22 [Rx Last Taken Unknown] oxybutynin chloride 15 mg tablet,extended release 24 hr 15 mg PO BID bladder #180 tabs 09/07/22 [Rx Last Taken Unknown] sertraline 100 mg tablet (Zoloft) 100 mg PO DAILY anxiety #90 tabs 09/07/22 [Rx Last Taken Unknown] atorvastatin 20 mg tablet (Lipitor) 20 mg PO DAILY Check with primary doctor 09/09/22 [History Last Taken Unknown] cephalexin 500 mg capsule 500 mg PO Q8H Check with primary doctor 09/09/22 [History Last Taken Unknown] diltiazem HCl 240 mg capsule,extended release 24 hr (Cardizem CD) 240 mg PO DAILY heart 09/09/22 [History Last Taken Unknown] metoprolol succinate 100 mg tablet,extended release 24 hr 100 mg PO BID Check with primary doctor 09/09/22 [History Last Taken Unknown] warfarin 3 mg tablet 3 mg PO DAILY Check with primary doctor 09/09/22 [History Last Taken Unknown] warfarin 6 mg tablet 6 mg PO QWEEK Check with primary doctor 09/09/22 [History Last Taken Unknown] Allergy/AdvReac Type Severity Reaction Status Date / Time fosinopril [From Monopril] Allergy Unknown unknown Verified 09/09/22 14:34 pioglitazone AdvReac Other Verified 09/09/22 14:34 Family History Father Diabetes High cholesterol Heart disease Melanoma Hypertension Mother Heart disease Brother AIDS (acquired immune deficiency syndrome) Surgical History History of back surgery History of carpal tunnel release History of hand surgery History of hysterectomy History of left elbow replacement History of surgical amputation of finger of right hand Hx of colonoscopy S/P hysterectomy S/P ORIF (open reduction internal fixation) fracture Status post surgical amputation of finger of right hand Social History household members: none Smoking Status: Former smoker how long ago did patient quit smokin years ago alcohol intake: current alcohol intake frequency: holidays/special occasions only substance use type: does not use what type of physical activity do you participate in: other details: aquasize ROS Constitutional Constitutional: Denies anorexia, change in weight, chills, fatigue, fever(s), malaise, night sweats, weakness or other Eyes Eyes: Denies blurry vision, change in eye color, change in vision, discharge from eye(s), double vision, erythema, eye pain, loss of vision or other ENT HEENT: Denies abnormal hearing, dysphagia, ear pain, epistaxis, headache(s), hearing loss, nasal congestion, nasal discharge, post nasal drip, sinus pressure, sore throat or other Cardiovascular Cardiovascular: Reports dyspnea on exertion and edema; Denies chest pain, claudication, lightheadedness, orthopnea, palpitations, paroxysmal nocturnal dyspnea, rapid heart rate, syncope or other Respiratory/Chest Respiratory/Chest: Reports cough, shortness of breath at rest and shortness of breath with exertion; Denies dyspnea, excessive phlegm production, hemoptysis, productive cough, wheezing or other Gastrointestinal Gastrointestinal: Denies abdominal pain, coffee ground emesis, constipation, diarrhea, dyspepsia, hematemesis, hematochezia, loose stools, melena, nausea, vomiting or other Genitourinary Genitourinary: Reports urinary frequency; Denies burning urination, difficulty urinating, dysuria, hematuria, nocturia, urinary hesitancy, urinary incontinence, urinary urgency or other Musculoskeletal Musculoskeletal: Reports back pain and joint pain; Denies arthralgias, joint stiffness, joint swelling, myalgias, neck pain or other Neurologic Neurologic: Denies abnormal gait, abnormal speech, confusion, disequilibrium, dizziness, focal weakness, headache(s), numbness, paresthesias, seizure-like activity, seizures, syncope, tingling, tremor(s) or other Psychiatric Psychiatric: Denies anxiety, depression, homicidal ideation, suicidal ideation or other Endocrine Endocrinology: Denies change in body appearance, cold intolerance, excessive sweating, heat intolerance, polydipsia, polyuria or other Hematologic/Lymphatic Hematologic/Lymphatic: Denies anemia, easy bleeding, easy bruising, lymphadenopathy or other Allergic/Immunologic Allergic/Immunologic: Denies rhinitis, hives, eczemia, asthma or other Vital Signs Vital Signs Vital Signs: 09/09/22 14:31 09/09/22 14:43 09/09/22 14:49 Temperature 97.7 F L Temperature Source Temporal Pulse Rate 67 Respiratory Rate 20 H Respiratory Effort Short of Breath Respiratory Pattern Blood Pressure 138/88 H Blood Pressure Mean 104 Pulse Ox 85 91 Oxygen Delivery Method Room Air Nasal Cannula Oxygen Flow Rate (L/min) 6 09/09/22 15:00 09/09/22 15:00 09/09/22 15:41 Temperature Temperature Source Pulse Rate 62 Respiratory Rate 26 H 26 H Respiratory Effort Respiratory Pattern Tachypnea Blood Pressure Blood Pressure Mean Pulse Ox 91 91 Oxygen Delivery Method Nasal Cannula Oxygen Flow Rate (L/min) 6 09/09/22 16:32 09/09/22 16:32 Temperature 97.9 F Temperature Source Temporal Pulse Rate 69 Respiratory Rate 23 H Respiratory Effort Respiratory Pattern Blood Pressure 155/77 H 155/77 H Blood Pressure Mean 103 103 Pulse Ox 95 Oxygen Delivery Method Non-Rebreather @ 15L/min Oxygen Flow Rate (L/min) Weight Weight: 82.554 kg Body Mass Index (BMI) 34.4 Physical Exam Const alert, oriented x3, no apparent distress and well nourished Constitutional Narrative: Obese, somewhat disheveled, elderly, white female, sitting in bed on nonrebreather, appears comfortable currently with no signs of respiratory distress, nursing at bedside, patient is nontoxic-appearing at this time General Appearance: cooperative HEENT normocephalic, head/scalp atraumatic and hearing grossly normal bilaterally HEENT Narrative: Mucous membranes are somewhat dry, Mallampati is 2, dentition is poor, no thrush Eyes PERRL, EOMs intact bilaterally and conjunctivae normal Eyes Narrative: No scleral icterus Neck no lymphadenopathy, supple, no JVD and no carotid bruits Neck Narrative: Hirsutism is a noted, trachea midline, no thyroid enlargement Resp normal respiratory effort, no retractions, no use of accessory muscles and No clear to auscultation bilaterally Resp Narrative: Diffuse scattered end expiratory wheeze and crackles Auscultation: crackles and wheezes; Negative for rhonchi Cardio regular rate, regular rhythm, S1 normal heart sound, S2 normal heart sound, no murmurs, no rub, no gallops and no clicks GI normal to inspection, nondistended, normoactive bowel sounds, soft to palpation and non-tender Extremity Extremity Narrative: 1+ bilateral lower extremity pitting edema, no clubbing or cyanosis, patient reports edema is her chronic baseline amount Skin No no rashes or lesions noted, No no wounds, skin turgor normal, no jaundice, nopetechiae and no mottling Skin Narrative: Scattered lesions from picking bilateral lower extremities-no signs of infection, cracks on feet under callus formation on bilateral feet worse on leftthan right, bilateral lower extremity onychomycosis, ecchymotic area about the size of a tennis ball on the left lateral aspect of her upper back Neuro oriented x3, CN's II-XII intact bilaterally, moves all extremities and no focal motor deficits Neuro Narrative: Generalized weakness with no focal deficits Speech: speech normal Psych affect normal Psych Narrative: Very pleasant and appropriate Results Lab / Micro Data Result Diagrams: 09/09/22 14:50 09/09/22 14:50 Labs: Laboratory Results - last 24 hr 09/09/22 14:50: WBC 12.6 H, RBC 4.34, Hgb 11.8 L, Hct 38.3, MCV 88.2, MCH 27.2, MCHC 30.8 L, RDW Std Deviation 50.3 H, RDW Coeff of Zee 15.4 H, Plt Count 275, MPV 10.4, Immature Gran % (Auto) 0.500, Neut % (Auto) 90.4 H, Lymph % (Auto) 5.9L, [place] % (Auto) 2.2, Eos % (Auto) 0.6, Baso % (Auto) 0.4, Absolute Neuts (auto)11.4 H, Absolute Lymphs (auto) 0.74 L, Nucleated RBC % 0 09/09/22 14:50: Sodium 136, Potassium 5.0, Chloride 108 H, Carbon Dioxide 24.0, Anion Gap 4 L, BUN 36 H, Creatinine 1.29 H, Estim Creat Clear Calc 30.62, Est GFR (MDRD) Af Amer 52 L, Est GFR (MDRD) Non-Af 43 L, BUN/Creatinine Ratio 27.9 H, Glucose 226 H, Calcium 9.9, Troponin I High Sens 11 09/09/22 14:50: Total Bilirubin 0.40, Direct Bilirubin 0.12, AST 24, ALT 37, Alkaline Phosphatase 83, Total Protein 7.7, Albumin 3.4, Globulin 4.3 H 09/09/22 14:50: Lactic Acid 2.7 H* 09/09/22 14:50: B-Natriuretic Peptide 272.2 H 09/09/22 15:35: PT Cancelled, INR Cancelled 09/09/22 15:45: PT 20.0 H, INR 1.7 09/09/22 16:30: Urine Color Yellow, Urine Clarity Clear, Urine pH 6.0, Ur Specific [place] 1.015, Urine Protein 30 H, Urine Glucose (UA) Normal, Urine Ketones Negative, Urine Occult Blood Negative, Urine Nitrite Negative, Urine Bilirubin Negative, Urine Urobilinogen Normal, Ur Leukocyte Esterase 25 H, UrineRBC 0 SEEN, Urine WBC 0 SEEN, Ur Squamous Epith Cells 0-5 SEEN, Urine Bacteria 0SEEN, Urine Mucus 0 SEEN Micro: Microbiology 09/09/22 14:55 Nasal Secretion SARS-CoV-2 Antigen (Rapid) - Final Radiology Impression Chest X-Ray 09/09/22 15:05 IMPRESSION: Bilateral multiple areas of opacity concerning for multifocal infiltrates/pneumonia in the appropriate clinical setting. Other considerations would include scattered alveolar edema in the cardiogenic setting. Recommend follow-up imaging in 4-6 weeks after appropriate treatment to document resolution and exclude underlying pulmonary nodularity. Electronically Signed: Alexis Christian, DO at 15:21 EDT , Assessment & Plan Assessment/Plan (1) Acute UTI: (2) Lactic acidosis: (3) Sepsis: (4) Acute and chronic respiratory failure with hypoxia: (5) Leukocytosis: (6) Pneumonia: (7) Subtherapeutic international normalized ratio (INR): (8) Elevated brain natriuretic peptide (BNP) level: PLAN: Plan Sepsis secondary to UTI/suspected pneumonia -Urine culture from 07/09/2022 is showing gram-negative romeo lactose nicker and breaker with identification pending -Repeat urine culture done today, blood culture pending -Check sputum culture if patient able to produce -Pneumonia could be viral or atypical with presentation -Check strep pneumo and Legionella antigens -Check respiratory viral panel -COVID PCR is pending -COVID and flu rapid are negative -Broad-spectrum antibiotics with vancomycin/Zosyn/azithromycin and narrow as able -Patient not currently needing fluid boluses Acute hypoxic respiratory failure secondary to pneumonia/possible HFpEF -Echocardiogram on 07/10/2022 shows an EF of 60% with stage II diastolic dysfunction and moderate mitral valve calcification -Continue home diuretics -BNP is elevated but not nearly as elevated that has been previously so I am unconvinced that this is predominantly due to heart failure at this time -Check strep pneumo and Legionella antigens -Check respiratory viral panel -Antibiotics as above -Sputum culture as above -Currently requiring nonrebreather at 15 L--> transition to Airvo and wean as able -Patient is not oxygen dependent at baseline -CTA of the chest is pending as patient has been subtherapeutic with her INR forseveral days and chest x-ray was abnormal -Awaiting this to be performed and results Lactic acidosis -Secondary to the above may be combined sepsis and respiratory failure with hypoxia -Cycle as per sepsis protocol Leukocytosis with left shift -Treatment as above -Await culture results Elevated BNP -Much less than previous -Unconvinced that this is currently a heart failure exacerbation--> will await more data and continue home diuretics for now -No additional fluid needed for sepsis at this time PAF with subtherapeutic INR -Continue home Coumadin dosing -Check INR daily -Adjust Coumadin as needed -Continue home oral-continue home diltiazem Hypertension/hyperlipidemia -Continue home amlodipine -Continue home statin -Continue home diltiazem -continue home metoprolol Urinary incontinence -Continue home oxybutynin DM-2 -Hold home oral agents -Sliding scale -Cardiac/carb controlled diet -Accu-Cheks -May need more coverage with steroid use Recent osteomyelitis of the third digit on her right hand -Antibiotics have been completed on 08/23/2022 -PICC line removed History of stroke -Continue home aspirin -No apparent residual deficits CKD stage IIIb -Baseline serum creatinine appears to run between 1.1 and 1.4 -Current serum creatinine 1.29 -Avoid nephrotoxins as able -Monitor serum creatinine Depression -Continue home sertraline Chronic mild normocytic anemia -Patient is on iron for this we will continue -Hemoglobin stable DVT prophylaxis -We will start Lovenox as INR is subtherapeutic -Once INR greater than 2 discontinue Lovenox CODE STATUS -Full code Sepsis Attestation Sepsis Alert: Yes Sepsis Attestation: Agree w/Sepsis Date exam was performed: 09/09/22 Time exam was performed: 17:08 Possible Source of Sepsis: Pulmonary and Genitourinary Sepsis Organ Dysfunction Criteria Present: Acute Respiratory Failure (New need for BiPAP/CPAP or MV) and Lactic Acid > 2 mmol/L Fluid Resuscitation Fluid resuscitation indicated?: Yes Fluid Resuscitation ordered: Fluids not indicated Charges/Coding Visit Charges Inpatient E&M: 74340 Init Hosp L3 09/09/22 4508 <Electronically signed by Omayra Cho DO> Cosigner Signature (if applicable): CC: Dr. Bernie Reagan MD; Dr. Omayra Cho DO~ Signed [facility] Work Phone: [phone] Manzano [facility] September 06, 2022 4:49pm Note Date/Time September 06, 2022 12: 21pm [facility] Medical Records Department [address] [place] [address] Emergency Department Summary 09/06/22 MR#: [id number] Acct: [id number] Name: JOSELINE ELLIS Rep #:[id number] : 1950 72 From: Tj Manzano MD PCP: Dr. Bernie Reagan MD Status:R EG ER Location: ED HPI History of Present Illness Chief Complaint: Chest Other Informant: patient Narrative Narrative: Patient was sent here from the wound center because her A-fib is rapid. She hasa chronic wound on her right ring finger, she had an old injury and she is a diabetic and had trouble with that healing, and gets periodic debridements. Shestates it is doing well and not acutely infected right now. She states she has not felt any rapid heartbeat, dyspnea, chest discomfort, or any other acute symptoms except for some urinary frequency on ROS. She has had a little bit of malaise but has otherwise been feeling fine. She does have a history of A-fib, she is anticoagulated, she has had no major bleeding recently. She states even with walking today, she had no dyspnea. She is on no diuretics. She denies anymissed medications lately, she took her morning medications this morning. She states Cardizem was added several weeks ago to her medication regimen and she has been compliant with it. Denies any recent illness other than the above symptoms. No travel out of the area. [facility] Medical History Abnormal mammogram of right breast Abscess of right middle finger Acute kidney injury Alcohol use Anemia Anxiety Anxiety and depression Arthritis Atrial fib/flutter, transient Atrial fibrillation Back pain Bacteremia Breast lump Burn injury of skin of finger Cardiology follow-up encounter Chronic back pain Chronic cough COVID-19 vaccine series completed CPAP (continuous positive airway pressure) dependence CVA (cerebral vascular accident) Depression Depression with anxiety Dietary restriction DKA (diabetic ketoacidoses) Essential hypertension Finger infection Flu vaccine need Former smoker Health care maintenance History of echocardiogram History of edema History of stress test History of UTI Hyperlipidemia Irregular heartbeat Kidney disease retirement (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 MRSA infection 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 without evidence of necrosis Non-rheumatic mitral valve stenosis Nonrheumatic aortic (valve) stenosis Osteoarthritis Osteomyelitis of finger of right hand Osteoporosis Overactive bladder Pancreatitis Paroxysmal atrial fibrillation Paroxysmal atrial fibrillation with RVR Post-menopausal Preoperative evaluation to rule out surgical contraindication Tachycardia Urinary incontinence, overflow Venous insufficiency Vision problems Walker as ambulation aid Weakness Home Medications ferrous sulfate 325 mg (65 mg iron) tablet 325 mg PO DAILY Supplement 01/27/21 [History Last Taken 07/08/22] ascorbic acid (vitamin C) 500 mg tablet (Vitamin C) 500 mg PO DAILY vitamin 08/21/21 [History Last Taken 07/08/22] acetaminophen 325 mg capsule 650 mg PO PRN PRN Pain 12/02/21 [History Last Taken 07/08/22] cholecalciferol (vitamin D3) 50 mcg (2,000 unit) capsule 50 mcg PO DAILY /19/22 [History Last Taken 07/08/22] glimepiride 4 mg tablet 4 mg PO BID dm 3 months #180 tabs 06/24/22 [Rx Last Taken 07/09/22] oxybutynin chloride 15 mg tablet,extended release 24 hr 15 mg PO BID bladder #180 tabs 06/24/22 [Rx Last Taken 07/09/22] sertraline 100 mg tablet (Zoloft) 100 mg PO DAILY anxiety #90 tabs 06/24/22 [Rx Last Taken 07/08/22] metformin 1,000 mg tablet 1,000 mg PO BID DM #180 tabs 07/06/22 [Rx Last Taken 07/09/22] multivitamin 1 tab PO DAILY SUPPLEMENT 07/09/22 [History Last Taken 07/08/22] aspirin 81 mg chewable tablet 81 mg PO BREAKFAST Heart 08/11/22 [History Last Taken Unknown] vancomycin 1 gram/200 mL in dextrose 5 % intravenous piggyback 1,000 mg IV Q24H Antibiotic 08/11/22 [History Last Taken Unknown] diltiazem HCl 240 mg capsule,extended release 24 hr 240 mg PO DAILY #30 caps 08/15/22 [Rx Last Taken Unknown] atorvastatin 20 mg tablet (Lipitor) 20 mg PO DAILY #90 tabs 08/18/22 [Rx Last Taken Unknown] amlodipine 10 mg tablet 10 mg PO DAILY BP 09/01/22 [History Last Taken Unknown] metoprolol succinate 100 mg tablet,extended release 24 hr 100 mg PO BID #60 tabs09/01/22 [Rx Last Taken Unknown] warfarin 3 mg tablet 3 mg PO DAILY #90 tabs 09/02/22 [Rx Last Taken Unknown] warfarin 2.5 mg tablet See Rx Instructions .Route .COMPLEX #30 TABLETS 09/03/22 [Rx Last Taken Unknown] cephalexin 500 mg capsule 500 mg PO Q8H #15 CAPSULES 09/06/22 [Rx Last Taken Unknown] Allergy/AdvReac Type Severity Reaction Status Date / Time fosinopril [From Monopril] Allergy Unknown unknown Verified 09/06/22 11:50 pioglitazone AdvReac Other Verified 09/06/22 11:50 Family History Father Diabetes High cholesterol Heart disease Melanoma Hypertension Mother Heart disease Brother AIDS (acquired immune deficiency syndrome) Surgical History History of back surgery History of carpal tunnel release History of hand surgery History of hysterectomy History of left elbow replacement History of surgical amputation of finger of right hand Hx of colonoscopy S/P hysterectomy S/P ORIF (open reduction internal fixation) fracture Status post surgical amputation of finger of right hand Social History household members: none Smoking Status: Former smoker how long ago did patient quit smokin years ago alcohol intake: current alcohol intake frequency: holidays/special occasions only substance use type: does not use what type of physical activity do you participate in: other details: chantal LOMBARDO ROS ED Constitutional Constitutional ED: Reports fatigue; Denies body ache(s), chills or fever(s) Eyes Eyes: Denies change in vision or diplopia ENT ENT ED: Denies rhinorrhea or sore throat Cardiovascular Cardiovascular: Denies chest pain, palpitations or racing heartbeat Respiratory/Chest Respiratory/Chest: Denies cough or dyspnea Gastrointestinal Gastrointestinal: Denies abdominal pain, diarrhea, nausea or vomiting Genitourinary Genitourinary ED: Denies dysuria or hematuria Musculoskeletal Musculoskeletal: Denies back pain or neck pain Integumentary Reports as per HPI and wounds; Denies abscess or rash Neurologic Neurologic: Denies headache(s), paresthesias or weakness Psychiatric Psychiatric: Denies anxiety or suicidal thoughts EXAM Physical Exam Const Vital Signs: 09/06/22 11:48 09/06/22 12:55 09/06/22 13:47 Temperature 97 F L Temperature Source Temporal Pulse Rate 135 H 66 Respiratory Rate 18 16 Respiratory Effort Normal Non-Labored Respiratory Pattern Normal Blood Pressure 131/90 H 110/73 Blood Pressure Mean 103 85 Pulse Ox 98 99 Oxygen Delivery Method Room Air Room Air Positive well nourished and well developed General Appearance ED: well developed and NAD HEENT Reports moist mucous membranes normocephalic and atraumatic Eyes PERRL and EOMs intact bilaterally Neck full ROM and supple Resp normal respiratory effort and clear to auscultation bilaterally Cardio Rate: tachycardic Rhythm: abnormal rhythm irregularly irregular GI non-tender and non-distended Auscultation: normoactive bowel sounds Palpation: soft Back/Spine no CVA tenderness General Back: other FROM Extremity normal to inspection Extremity Narrative: Bandaged wound tip of right ring finger General Extremety ED: Negative for edema, pulses abnormal or tenderness General Extremity: Negative for edema or pulses abnormal Neuro oriented x3, CN's II-XII intact bilaterally and no sensory deficits noted Sensorium / Orientation: awake and alert Motor Exam: strength 5/5 throughout Psych mental status grossly normal Skin no rashes or lesions noted MDM MDM MDM Narrative Medical decision making narrative: Patient was given IV Cardizem 15 mg, and on repeat evaluations, she has heart rates in the 60s, appeared to convert to sinus rhythm same QRS complexes before,I do not think we need to do a repeat EKG since she has had no symptoms and has a history of paroxysmal atrial fibrillation. She felt well was ambulatory in the department, we waited a little while for her to provide a urine specimen. Channing not concerned about her potassium of 5.2 which is barely out of the normal range, this presents her creatinine is actually lower than usual. Given all of this, I would not change her Cardizem for rate now, she can follow-up for reevaluation, we are still waiting for urine specimen to evaluate for an infection there given her recent urinary frequency and the fact that she was in A-fib with RVR. Patient's urinalysis did return, it is consistent with infection. Therefore we are going to treat her with cephalexin 3 times daily because of her EGFR less than 50 and because she is on warfarin limiting use of other antibiotics that are more likely to interfere with that, and I did send a culture. Lab Data Attestation: I reviewed the patient's lab results. Labs: Laboratory Results - last 24 hr 09/06/22 09/06/22 09/06/22 12:45 12:45 16:13 WBC 8.8 RBC 4.11 L Hgb 11.5 L Hct 36.3 L MCV 88.3 MCH 28.0 MCHC 31.7 L RDW Std Deviation 50.9 H RDW Coeff of Zee 15.6 H Plt Count 306 MPV 10.9 Immature Gran % (Auto) 0.200 Neut % (Auto) 70.1 H Lymph % (Auto) 19.7 [place] % (Auto) 5.7 Eos % (Auto) 3.6 Baso % (Auto) 0.7 Absolute Neuts (auto) 6.2 Absolute Lymphs (auto) 1.73 Nucleated RBC % 0 Sodium 136 Potassium 5.2 H Chloride 107 Carbon Dioxide 24.0 Anion Gap 5 BUN 47 H Creatinine 1.43 H Estim Creat Clear Calc 27.62 Est GFR (MDRD) Af Amer 47 L Est GFR (MDRD) Non-Af 39 L BUN/Creatinine Ratio 32.9 H Glucose 164 H Calcium 9.6 Urine Color Yellow Urine Clarity Sl. Cloudy Urine pH 8.0 Ur Specific [place] 1.010 Urine Protein 30 H Urine Glucose (UA) Normal Urine Ketones Negative Urine Occult Blood 10 H Urine Nitrite Positive H Urine Bilirubin Negative Urine Urobilinogen Normal Ur Leukocyte Esterase 500 H Rhythm Strip Rhythm Strip: A-fib Rate: 130 Ectopy: None EKG Initial EKG: Attestation: I personally reviewed and interpreted this EKG as follows: Interpretation: No Acute Injury Pattern and Atrial Fibrillation Discharge Plan Triage Chief Complaint: Chest Other ED Provider: Tj Manzano Dx/Rx/DC Orders Clinical Impression: Paroxysmal atrial fibrillation, Acute UTI Instructions: ED AFIB Prescriptions: New cephalexin [cephalexin] 500 mg capsule 500 mg PO Q8H Qty: 15 0RF No Action acetaminophen 325 mg capsule 650 mg PO PRN PRN (Reason: Pain) cholecalciferol (vitamin D3) 50 mcg (2,000 unit) capsule 50 mcg PO DAILY metoprolol succinate 100 mg tablet extended release 24 hr 100 mg PO BID Qty: 60 1RF amlodipine 10 mg tablet 10 mg PO DAILY Label Comments: Hold for systolic BP less than 120 mmHg. ferrous sulfate 325 mg (65 mg iron) tablet 325 mg PO DAILY ascorbic acid (vitamin C) [Vitamin C] 500 mg Tablet 500 mg PO DAILY multivitamin Tablet 1 tab PO DAILY aspirin 81 mg tablet,chewable 81 mg PO BREAKFAST vancomycin in dextrose 5 % 1 gram/200 mL piggyback 1,000 mg IV Q24H Rx Instructions: stop date 08/23/22 dx: finger osteomyelitis weekly bmp, cbc, esr, and vanc trough. Fax to [phone] routine picc care per protocol diltiazem HCl 240 mg Capsule,Extended Release 24hr 240 mg PO DAILY Qty: 30 0RF glimepiride 4 mg tablet 4 mg PO BID 90 Days Qty: 180 3RF oxybutynin chloride 15 mg tablet extended release 24hr 15 mg PO BID Qty: 180 1RF sertraline [Zoloft] 100 mg tablet 100 mg PO DAILY Qty: 90 0RF metformin 1,000 mg tablet 1,000 mg PO BID Qty: 180 3RF atorvastatin [Lipitor] 20 mg tablet 20 mg PO DAILY Qty: 90 2RF warfarin 3 mg tablet 3 mg PO DAILY Qty: 90 2RF warfarin 2.5 mg tablet See Rx Instructions .ROUTE .COMPLEX Qty: 30 0RF Dose Instruction: TAKE 1 TABLET BY MOUTH EVERY DAY WITH DINNER Rx Instructions: TAKE 1 TABLET BY MOUTH EVERY DAY WITH DINNER Primary Care Provider: Bernie Reagan Referrals: Bernie Reagan MD [Primary Care Provider] - (And/or 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 Call [facility] ([phone]) or report to the closest Emergency Room. Call 911 if necessary. 09/06/22 9249 <Electronically signed by Tj Manzano MD> Cosigner Signature (if applicable): CC: Dr. Bernie Reagan MD ~ Signed [facility] Work Phone: 1(846) 338-351104-03-[address] Lopez [facility] August 16, 2022 2:13pm Note Date/Time August 16, 2022 2:13 pm [facility] Medical Records Department [address] [place] [address] [place] [address] Instructions for Home/Discharge Instructions 08/16/22 1413 MR#: [id number] Acct: [id number] Name: JOSELINE ELLIS Rep #:[id number] : 1950 72 From: Kisha Lopez MD PCP: Dr. Bernie Reagan MD Status:A DM IN Discharge Instructions Diet Discharge Diet: No restrictions Activity Discharge Activity: Return to Normal Activity Weight Bearing Status: Weight bearing as tolerated Dressing / Incision Call your doctor if your incision/area has: Sudden Increased Bleeding, IncreasedPain/ Swelling, Increased Redness and Foul Smelling Discharge Call your doctor if you observe: Chest pain and Increased palpitations (irregular heartbeat) Follow Up Care Test Results: Test results from this visit will be discussed in further detail at your follow- up appointment, if applicable. Discharge Plan Admission Admit Date/Time: 08/11/22 22:18 Primary Reason for Your Visit: atrial flutter with rapid ventricular response. Attending Provider: Kisha Lopez Primary Care Provider: Bernie Reagan Consulting Providers: Nicholas Delvalle ; Anu James ; Wale Jacobsen Discharge Orders/Prescriptions Prescriptions: New diltiazem HCl 240 mg Capsule,Extended Release 24hr 240 mg PO DAILY Qty: 30 0RF Continued acetaminophen 325 mg capsule 650 mg PO PRN PRN (Reason: Pain) cholecalciferol (vitamin D3) 50 mcg (2,000 unit) capsule 50 mcg PO DAILY ferrous sulfate 325 mg (65 mg iron) tablet 325 mg PO DAILY ascorbic acid (vitamin C) [Vitamin C] 500 mg Tablet 500 mg PO DAILY multivitamin Tablet 1 tab PO DAILY amlodipine 10 mg tablet 10 mg PO DAILY warfarin [Jantoven] 2.5 mg tablet 2.5 mg PO DINNER aspirin 81 mg tablet,chewable 81 mg PO BREAKFAST vancomycin in dextrose 5 % 1 gram/200 mL piggyback 1,000 mg IV Q24H Rx Instructions: stop date 08/23/22 dx: finger osteomyelitis weekly bmp, cbc, esr, and vanc trough. Fax to [phone] routine picc care per protocol glimepiride 4 mg tablet 4 mg PO BID 90 Days Qty: 180 3RF losartan 50 mg tablet 50 mg PO BID Qty: 180 3RF oxybutynin chloride 15 mg tablet extended release 24hr 15 mg PO BID Qty: 180 1RF sertraline [Zoloft] 100 mg tablet 100 mg PO DAILY Qty: 90 0RF metoprolol tartrate 50 mg tablet 50 mg PO BID Qty: 180 1RF simvastatin 20 mg tablet 20 mg PO QHS Qty: 90 3RF metformin 1,000 mg tablet 1,000 mg PO BID Qty: 180 3RF Referrals / Follow Up: [facility] [Provider Group] - Within 1 Month Bernie Reagan MD [Primary Care Provider] - 09/01/22 10:45 am Reji Morocho MD [Med Staff - Active Staff] - Within 2 Weeks Génesis Patel NP, STACY-C [Med Staff - Adv Practice Prof] - 08/16/22 2:15 pm Disposition Disposition (needs filled in before D/C Order can be placed): Home Health Service 08/16/22 1413<Electronically signed by Kisha Lopez MD>Kisha Lopez MD CC: Dr. Bernie Reagan MD; Dr. Wale Jacobsen DO; Dr. Nicholas Delvalle MD; Dr. Anu James MD ~ Signed [facility] Work Phone: 1(286) 303-706104-03-2023 [facility] August 16, 2022 1:54pm Note Date/Time August 16, 2022 1:53 pm [facility] Medical Records Department [address] [place] [address] Transfer to [facility] MR#: [id number] Acct: [id number] Name: JOSELINE ELLIS Rep #:[id number] : 1950 72 From: Kisha Lopez MD PCP: Dr. Bernie Reagan MD Status:A DM IN Certification of patient admission REQUIRED AT TIME OF ADMISSION. I CERTIFY THAT POST-HOSPITAL ECF SERVICES ARE REQUIRED TO BE GIVEN ON AN IN-PATIENT BASIS BECAUSE OF THE ABOVE NAMED PATIENT'S NEED FOR JAIL CARE ON A CONTINUING BASIS FOR THE CONDITION(S) FOR WHICH HE/SHE WAS RECEIVING IN-PATIENT HOSPITAL SERVICES PRIOR TO HIS/HER TRANSFER TO THE F. 08/16/22 1354<Electronically signed by Kisha Lopez MD> Diet Diet Order/Speech Therapy: 08/12/22 00:48 Diet: Cardiac: Calorie-Controlled Food consistency:: Regular Liquid Consistency:: Regular/Thin How many daily calories?: 1800 calorie Routine Orders/Code Status Enema Type: Fleetz Enema Frequency: Daily PRN Suppository Type: Dulcolax 10mg Suppository Frequency: Daily PRN O2 Frequency: PRN Keep PO Greater than or Equal to (%): 90 Wound(s) left leg: Wound Type: cluster of abrasions Dressing Change: Mepilex right middle finger: Wound Type: healing surgical wound Dressing Change: Promogran Therapies Weight Bearing: Weight bearing as tolerated Physical Therapy: Eval and Treat Occupational Therapy: Eval and Treat Problem/Diagnosis (1) Atrial flutter with rapid ventricular response: Status: Acute Code(s): I48.92 - Unspecified atrial flutter (2) Occluded PICC line: Status: Acute Code(s): T82.898A - Other specified complication of vascular prosthetic devices, implantsand grafts, initial encounter (3) Osteomyelitis of finger of right hand: Status: Chronic Code(s): M86.9 - Osteomyelitis, unspecified Allergies/Procedures Done in Hospital Allergies fosinopril [From Monopril] Allergy (Unknown, Verified 08/11/22 15:40) unknown pioglitazone Adverse Reaction (Verified 08/11/22 15:40) Other Type of Care/Length of Stay Estimated LOS: Convalescent Care Less Than 30 days Type of Care Needed: Skilled Rehab Potential: Fair Prognosis: Fair Additional Orders/Day of Discharge Day of Discharge: 08/16/22 Dietary and Speech Recommendations Dietitian Recommendations/Changes: continue cardiac, 1800 calorie controlled diet as tolerated; will d/c glucerna Discharge Plan Admission Admit Date/Time: 08/11/22 22:18 Primary Reason for Your Visit: atrial flutter with rapid ventricular response. Attending Provider: Kisha Lopez Primary Care Provider: Bernie Reagan Consulting Providers: Nicholas Delvalle ; Anu James ; Wale Jacobsen Discharge Orders/Prescriptions Prescriptions: New diltiazem HCl 240 mg Capsule,Extended Release 24hr 240 mg PO DAILY Qty: 30 0RF Continued acetaminophen 325 mg capsule 650 mg PO PRN PRN (Reason: Pain) cholecalciferol (vitamin D3) 50 mcg (2,000 unit) capsule 50 mcg PO DAILY ferrous sulfate 325 mg (65 mg iron) tablet 325 mg PO DAILY ascorbic acid (vitamin C) [Vitamin C] 500 mg Tablet 500 mg PO DAILY multivitamin Tablet 1 tab PO DAILY amlodipine 10 mg tablet 10 mg PO DAILY warfarin [Jantoven] 2.5 mg tablet 2.5 mg PO DINNER aspirin 81 mg tablet,chewable 81 mg PO BREAKFAST vancomycin in dextrose 5 % 1 gram/200 mL piggyback 1,000 mg IV Q24H Rx Instructions: stop date 08/23/22 dx: finger osteomyelitis weekly bmp, cbc, esr, and vanc trough. Fax to [phone] routine picc care per protocol glimepiride 4 mg tablet 4 mg PO BID 90 Days Qty: 180 3RF losartan 50 mg tablet 50 mg PO BID Qty: 180 3RF oxybutynin chloride 15 mg tablet extended release 24hr 15 mg PO BID Qty: 180 1RF sertraline [Zoloft] 100 mg tablet 100 mg PO DAILY Qty: 90 0RF metoprolol tartrate 50 mg tablet 50 mg PO BID Qty: 180 1RF simvastatin 20 mg tablet 20 mg PO QHS Qty: 90 3RF metformin 1,000 mg tablet 1,000 mg PO BID Qty: 180 3RF Referrals / Follow Up: [facility] [Provider Group] - Within 1 Month Bernie Reagan MD [Primary Care Provider] - 09/01/22 10:45 am Reji Morocho MD [Med Staff - Active Staff] - Within 2 Weeks Génesis Patel NP, NP-C [Med Staff - Adv Practice Prof] - 08/16/22 2:15 pm Disposition Disposition (needs filled in before D/C Order can be placed): Home Health Service 08/16/22 7898 <Electronically signed by Kisha Lopez MD> Cosigner Signature (if applicable): CC: Dr. Bernie Reagan MD; Dr. Wale Jacobsen DO; Dr. Nicholas Delvalle MD; Dr. Anu James MD ~ [facility] Work Phone: [phone] 896-210904-03-2023 Consult note Author Wale Estes [facility] August 15, 2022 11:11pm Note Date/Time August 15, 2022 11:1 1pm [facility] Medical Records Department [address] [place] [address] Pharmacokinetic/Renal -Consult 08/15/222307 MR#: [id number] Acct: [id number] Name: JOSELINE ELLIS Rep #:[id number] : 1950 72 From: Wale Estes PCP: Dr. Bernie Reagan MD Status:A DM IN Y Location: [place] [address] Consult Pharmacy has been consulted to manage selected antiobiotic: Vancomycin Type of Consult: Follow-up Suspected Infection: Osteomyelitis Prior Doses of Antibiotics Received/Current Regimen: Medications Discontinued Medications Vancomycin HCl 1,250 mg/ (Sodium Chloride) 275 mls @ 167 mls/hr IV Q24H ROSALIND Last Admin: 08/15/22 22:57 Dose: Not Given Labs: Sodium 141 mmol/L (136-145) 08/12/22 04:54 Potassium 3.9 mmol/L (3.5-5.1) 08/12/22 04:54 Chloride 114 mmol/L (98-107) H 08/12/22 04:54 Carbon Dioxide 20.0 mmol/L (21.0-32.0) L 08/12/22 04:54 Anion Gap 7 (5-15) 08/12/22 04:54 BUN 35 mg/dL (7-18) H 08/12/22 04:54 Creatinine 1.07 mg/dL (0.55-1.02) H 08/12/22 04:54 Est GFR (MDRD) Af Amer 65 mL/min (>60) 08/12/22 04:54 Est GFR (MDRD) Non-Af 54 mL/min (>60) L 08/12/22 04:54 BUN/Creatinine Ratio 32.7 RATIO (10-20) H 08/12/22 04:54 Glucose 160 mg/dL (74-106) H 08/12/22 04:54 Vancomycin Trough 22.9 ug/mL (5.0-15.0) H 08/15/22 22:30 Weight used for dosin.5 kg Estimated Creatinine Clearance: 48.6 Goal Trough: 15-20 mcg/mL Pharmacy Plan for Drug Dosing: Vancomycin trough level, drawn 23 hours post-dose, was high at 22.9. The scheduled dose was held. A random level will be drawn in 24 hours to determine continuing dosing, if patient is not discharged by then. Pharmacy Service will continue to monitor and adjust dosing as required. Follow-Up Labs: Trough Vancomycin - random Labs to be done on [date and time ordered]: 08/16/22 @2230 random 08/15/22 2311 <Electronically signed by Wale munson > Date _ Wale Hickey Signature (if applicable): Date ____ CC: ~ Signed [facility] Work Phone: 1(273) 422-941404-02-[address] Jacobsen [facility] August 15, 2022 12:35pm Note Date/Time August 15, 2022 12:3 5pm [facility] Medical Records Department [address] [place] [address] Progress Note - Hospitalist 08/15/22 1233 MR#: [id number] Acct: [id number] Name: JOSELINE ELLIS Rep #:[id number] : 1950 72 From: Wale Jacobsen DO PCP: Dr. 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 No events. Objective Data Objective Data Vital Signs: Vital Signs Temp Pulse Resp BP Pulse Ox O2 Del Method O2 Flow Rate 36.6 C 127 H 16 124/100 H 98 Room Air 2 08/15/22 09:19 08/15/22 09:32 08/15/22 09:19 08/15/22 09:32 08/15/22 09:19 08/15/22 10:00 08/14/22 03:32 Oxygen Flow Rate (L/min) 2 Oxygen Delivery Method Room Air Weight: 85.5 kg Body Mass Index (BMI) 35.6 Intake & Output: Intake and Output for Last 24 Hours 08/13/22 08/14/22 08/15/22 23:59 23:59 23:59 Intake Total 391.66 / 591.66 1075 / 1075 275 / 275 Output Total 600 / 600 1550 / 1550 400 / 400 Balance -208.34 / -8.34 -475 / -475 -125 / -125 Lab / Micro Data Result Diagrams: 08/12/22 04:54 08/12/22 04:54 Labs: Laboratory Results - last 24 hr 08/14/22 12:13: POC Glucose 256 H 08/14/22 17:14: POC Glucose 168 H 08/14/22 22:59: POC Glucose 180 H 08/15/22 06:15: PT 21.1 H, INR 1.9 08/15/22 07:00: POC Glucose 121 H 08/15/22 11:30: POC Glucose 272 H Physical Exam Const alert and no apparent distress HEENT head/scalp atraumatic and moist oral mucous membranes Resp normal respiratory effort and no retractions Cardio Cardio Narrative: irregularly irregular (converted to NSR after my eval) GI normal to inspection, nondistended, normoactive bowel sounds Assessment & Plan Assessment/Plan (1) Atrial flutter with rapid ventricular response: PLAN: Atrial flutter with rapid ventricular response/paroxysmal atrial fibrillation with RVR/hypercoagulable state due to atrial fibrillation Despite metoprolol IV, and Cardizem IV bolus x2 patient still remain in a flutter with RVR/A-fib with RVR. Cardizem drip started. Titrate Cardizem drip. Echocardiogram on 07/10/2022 was reviewed. Echocardiogram showed EF of 60% withstage II diastolic dysfunction. Normal left atrium. Normal right atrium. Mild1+ eccentric mitral valve insufficiency. Mild tricuspid valve insufficiency. Pulm artery systolic pressure was 38 mmHg. INR is therapeutic now. continue warfarin. 08/12: Restarted metoprolol tartrate and weaned off of diltiazem drip. Patient subsequently developed A-fib with RVR the morning of the and had to be restarted on the diltiazem drip. Consult cardiology 08/13: Seen by cardiology who started diltiazem 60 q6h in addition to metoprolol tartate. Dilt gtt turned off. 08/15: changed to diltiazem 240. converted to NSR. Continue metoprolol and diltiazem CD. 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 Stable Vancomycin continued PLAN: Plan Chronic conditions: * Heart failure with preserved ejection fraction: BNP of 750.3. Last BNP on file was 270.6. Radiologist impression of chest x-ray: No acute findings. Chest x-ray was visualized and I agree with cardiology interpretation. Stable. * Chronic normocytic anemia Stable * CKD stage IIIa Stable Trend BMP. * Diabetes mellitus Blood glucoses is . DC home with home health care. Plan was to discharge 08/15, but with the IV abx, will not be able to get HHC until 08/16, therefore discharge delayed until then. Charges/Coding Visit Charges Inpatient E&M: 10806 Subs Hosp L2 08/15/22 1236 <Electronically signed by Wale Jacobsen DO> Cosigner Signature (if applicable): CC: ~ Signed [facility] Work Phone: 1(254) 883-702104-02-[address] Jacobsen [facility] August 15, 2022 10:54am Note Date/Time August 15, 2022 10:5 4am [facility] Medical Records Department [address] [place] [address] Discharge Summary 08/15/22 1053 MR#: [id number] Acct: [id number] Name: JOSELINE ELLIS Rep #:[id number] : 1950 72 From: Wale Jacobsen DO PCP: Dr. Bernie Reagan MD Status:A DM IN Location: [place] [address] Providers Date of Admission: 08/11/22 Primary Care Physician: Dr. Bernie Reagan MD Consultations 08/12/22 07:27 Consult: Onc/Wound/accounts payable assistant Routine Comment: Reason for Consult:: HHC doing wound dressings to finger and LLE, hx MRSA 08/13/22 08:29 Consult: Cardiology Routine Consulting Provider: Anu James Reason for Consult: aflutter w rvr EMERGENT Consult: No MD Notified: Yes Date Notified: 08/13/22 Time Notified: 08:29 Method of Notification: Text Reason For Visit: A-FIB RVR Diagnosis Discharge Diagnosis (1) Atrial flutter with rapid ventricular response: Status: Acute Code(s): I48.92 - Unspecified atrial flutter Plan: Atrial flutter with rapid ventricular response/paroxysmal atrial fibrillation with RVR/hypercoagulable state due to atrial fibrillation Despite metoprolol IV, and Cardizem IV bolus x2 patient still remain in a flutter with RVR/A-fib with RVR. Cardizem drip started. Titrate Cardizem drip. Echocardiogram on 07/10/2022 was reviewed. Echocardiogram showed EF of 60% withstage II diastolic dysfunction. Normal left atrium. Normal right atrium. Mild1+ eccentric mitral valve insufficiency. Mild tricuspid valve insufficiency. Pulm artery systolic pressure was 38 mmHg. INR is therapeutic now. continue warfarin. 08/12: Restarted metoprolol tartrate and weaned off of diltiazem drip. Patient subsequently developed A-fib with RVR the morning of the and had to be restarted on the diltiazem drip. Consult cardiology 08/13: Seen by cardiology who started diltiazem 60 q6h in addition to metoprolol tartate. Dilt gtt turned off. 08/15: changed to diltiazem 240. converted to NSR. Continue metoprolol and diltiazem CD. 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 Stable Vancomycin continued Plan Chronic conditions: * Heart failure with preserved ejection fraction: BNP of 750.3. Last BNP on file was 270.6. Radiologist impression of chest x-ray: No acute findings. Chest x-ray was visualized and I agree with cardiology interpretation. Stable. * Chronic normocytic anemia Stable * CKD stage IIIa Stable Trend BMP. * Diabetes mellitus Blood glucoses is . DC home with home health care. Medications at Discharge Home Medications ferrous sulfate 325 mg (65 mg iron) tablet 325 mg PO DAILY Supplement 01/27/21 ascorbic acid (vitamin C) 500 mg tablet (Vitamin C) 500 mg PO DAILY vitamin 08/21/21 acetaminophen 325 mg capsule 650 mg PO PRN PRN Pain 12/02/21 cholecalciferol (vitamin D3) 50 mcg (2,000 unit) capsule 50 mcg PO DAILY /19/22 glimepiride 4 mg tablet 4 mg PO BID dm 3 months #180 tabs 06/24/22 losartan 50 mg tablet 50 mg PO BID bp #180 tabs 06/24/22 oxybutynin chloride 15 mg tablet,extended release 24 hr 15 mg PO BID bladder #180 tabs 06/24/22 sertraline 100 mg tablet (Zoloft) 100 mg PO DAILY anxiety #90 tabs 06/24/22 metoprolol tartrate 50 mg tablet 50 mg PO BID heart #180 tabs 06/28/22 metformin 1,000 mg tablet 1,000 mg PO BID DM #180 tabs 07/06/22 simvastatin 20 mg tablet 20 mg PO QHS cholesterol #90 tabs 07/06/22 amlodipine 10 mg tablet 10 mg PO DAILY BP 07/09/22 multivitamin 1 tab PO DAILY SUPPLEMENT 07/09/22 aspirin 81 mg chewable tablet 81 mg PO BREAKFAST Heart 08/11/22 vancomycin 1 gram/200 mL in dextrose 5 % intravenous piggyback 1,000 mg IV Q24H Antibiotic 08/11/22 warfarin 2.5 mg tablet (Jantoven) 2.5 mg PO DINNER Blood Thinner 08/11/22 diltiazem HCl 240 mg capsule,extended release 24 hr 240 mg PO DAILY #30 caps 08/15/22 Hospital Course Operations None Procedures None Summary of Care Provided Minutes Spent on Discharge: 28 Weight / BMI Weight Weight: 85.5 kg Body Mass Index (BMI) 35.6 ABG / Lab / Microbiology Data Result Diagrams: 08/12/22 04:54 08/12/22 04:54 Laboratory: Laboratory Results - last 24 hr 08/14/22 12:13: POC Glucose 256 H 08/14/22 17:14: POC Glucose 168 H 08/14/22 22:59: POC Glucose 180 H 08/15/22 06:15: PT 21.1 H, INR 1.9 08/15/22 07:00: POC Glucose 121 H D/C Instructions Discharge Diet: No restrictions Call your doctor if your incision/area has: Sudden Increased Bleeding, IncreasedPain/ Swelling, Increased Redness and Foul Smelling Discharge Call your doctor if you observe: Chest pain and Increased palpitations (irregular heartbeat) Meaningful Use Info Meaningful Use Diagnoses (Choose all that apply): None applicable Discharge Plan Admission Admit Date/Time: 08/11/22 22:18 Primary Reason for Your Visit: atrial flutter with rapid ventricular response. Attending Provider: Wale Jacobsen Primary Care Provider: Bernie Reagan Consulting Providers: Nicholas Delvalle ; Anu James Discharge Orders/Prescriptions Prescriptions: New diltiazem HCl 240 mg Capsule,Extended Release 24hr 240 mg PO DAILY Qty: 30 0RF Continued acetaminophen 325 mg capsule 650 mg PO PRN PRN (Reason: Pain) cholecalciferol (vitamin D3) 50 mcg (2,000 unit) capsule 50 mcg PO DAILY ferrous sulfate 325 mg (65 mg iron) tablet 325 mg PO DAILY ascorbic acid (vitamin C) [Vitamin C] 500 mg Tablet 500 mg PO DAILY multivitamin Tablet 1 tab PO DAILY amlodipine 10 mg tablet 10 mg PO DAILY warfarin [Jantoven] 2.5 mg tablet 2.5 mg PO DINNER aspirin 81 mg tablet,chewable 81 mg PO BREAKFAST vancomycin in dextrose 5 % 1 gram/200 mL piggyback 1,000 mg IV Q24H Rx Instructions: stop date 08/23/22 dx: finger osteomyelitis weekly bmp, cbc, esr, and vanc trough. Fax to [phone] routine picc care per protocol glimepiride 4 mg tablet 4 mg PO BID 90 Days Qty: 180 3RF losartan 50 mg tablet 50 mg PO BID Qty: 180 3RF oxybutynin chloride 15 mg tablet extended release 24hr 15 mg PO BID Qty: 180 1RF sertraline [Zoloft] 100 mg tablet 100 mg PO DAILY Qty: 90 0RF metoprolol tartrate 50 mg tablet 50 mg PO BID Qty: 180 1RF simvastatin 20 mg tablet 20 mg PO QHS Qty: 90 3RF metformin 1,000 mg tablet 1,000 mg PO BID Qty: 180 3RF Referrals / Follow Up: [facility] [Provider Group] - Within 1 Month Bernie Reagan MD [Primary Care Provider] - 09/01/22 10:45 am Reji Morocho MD [Med Staff - Active Staff] - Within 2 Weeks Génesis Patel NP, LEAD DESIGNER-C [Med Staff - Adv Practice Prof] - 08/16/22 2:15 pm Disposition Disposition (needs filled in before D/C Order can be placed): Home Health Service Charges/Coding Visit Charges Inpatient E&M: 38304 Disch Hosp 08/15/22 1054 <Electronically signed by Wale Jacobsen DO> Cosigner Signature (if applicable): CC: Dr. Bernie Reagan MD; Dr. Wale Jacobsen DO~ Signed [facility] Work Phone: 1(192) 606-750704-02-[address] Jacobsen [facility] August 15, 2022 10:53am Note Date/Time August 15, 2022 10:4 4am [facility] Medical Records Department [facility] [place] [address] Instructions for Home/Discharge Instructions 08/15/22 1043 MR#: [id number] Acct: [id number] Name: JOSELINE ELLIS Rep #:[id number] 1 : 1950 72 From: Wale Jacobsen DO PCP: Dr. Bernie Reagan MD Status:A DM IN Discharge Instructions Diet Discharge Diet: No restrictions Dressing / Incision Call your doctor if your incision/area has: Sudden Increased Bleeding, IncreasedPain/ Swelling, Increased Redness and Foul Smelling Discharge Call your doctor if you observe: Chest pain and Increased palpitations (irregular heartbeat) Follow Up Care Test Results: Test results from this visit will be discussed in further detail at your follow- up appointment, if applicable. Discharge Plan Admission Admit Date/Time: 08/11/22 22:18 Primary Reason for Your Visit: atrial flutter with rapid ventricular response. Attending Provider: Wale Jacobsen Primary Care Provider: Bernie Reagan Consulting Providers: Nicholas Delvalle ; Anu James Discharge Orders/Prescriptions Prescriptions: New diltiazem HCl 240 mg Capsule,Extended Release 24hr 240 mg PO DAILY Qty: 30 0RF Continued acetaminophen 325 mg capsule 650 mg PO PRN PRN (Reason: Pain) cholecalciferol (vitamin D3) 50 mcg (2,000 unit) capsule 50 mcg PO DAILY ferrous sulfate 325 mg (65 mg iron) tablet 325 mg PO DAILY ascorbic acid (vitamin C) [Vitamin C] 500 mg Tablet 500 mg PO DAILY multivitamin Tablet 1 tab PO DAILY amlodipine 10 mg tablet 10 mg PO DAILY warfarin [Jantoven] 2.5 mg tablet 2.5 mg PO DINNER aspirin 81 mg tablet,chewable 81 mg PO BREAKFAST vancomycin in dextrose 5 % 1 gram/200 mL piggyback 1,000 mg IV Q24H Rx Instructions: stop date 08/23/22 dx: finger osteomyelitis weekly bmp, cbc, esr, and vanc trough. Fax to [phone] routine picc care per protocol glimepiride 4 mg tablet 4 mg PO BID 90 Days Qty: 180 3RF losartan 50 mg tablet 50 mg PO BID Qty: 180 3RF oxybutynin chloride 15 mg tablet extended release 24hr 15 mg PO BID Qty: 180 1RF sertraline [Zoloft] 100 mg tablet 100 mg PO DAILY Qty: 90 0RF metoprolol tartrate 50 mg tablet 50 mg PO BID Qty: 180 1RF simvastatin 20 mg tablet 20 mg PO QHS Qty: 90 3RF metformin 1,000 mg tablet 1,000 mg PO BID Qty: 180 3RF Referrals / Follow Up: [facility] [Provider Group] - Within 1 Month Bernie Reagan MD [Primary Care Provider] - 09/01/22 10:45 am Reji Morocho MD [Med Staff - Active Staff] - Within 2 Weeks Génesis Patel NP, LEAD DESIGNER-C [Med Staff - Adv Practice Prof] - 08/16/22 2:15 pm Disposition Disposition (needs filled in before D/C Order can be placed): Home Health Service 08/15/22 1053<Electronically signed by Wale Jacobsen DO>Wale Jacobsen DO CC: Dr. Bernie Reagan MD; Dr. Nicholas Delvalle MD; Dr. Anu James MD ~ Signed [facility] Work Phone: 1(668) 502-676704-01-[address] Jacobsen [facility] August 14, 2022 4:45pm Note Date/Time August 14, 2022 8:02 am [facility] Medical Records Department [address] [place] [address] Progress Note - Hospitalist 08/14/22 0800 MR#: [id number] Acct: [id number] Name: JOSELINE ELLIS Rep #:[id number] : 1950 72 From: Wale Jacobsen DO PCP: Dr. 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 no events overnight. Objective Data Objective Data Vital Signs: Vital Signs Temp Pulse Resp BP Pulse Ox O2 Del Method O2 Flow Rate 36.8 C 70 16 138/87 H 94 Nasal Cannula 2 08/14/22 03:31 08/14/22 03:31 08/14/22 03:31 08/14/22 03:31 08/14/22 03:31 08/14/22 03:32 08/14/22 03:32 Oxygen Flow Rate (L/min) 2 Oxygen Delivery Method Nasal Cannula Weight: 85.5 kg Body Mass Index (BMI) 35.6 Intake & Output: Intake and Output for Last 24 Hours 08/12/22 08/13/22 08/14/22 23:59 23:59 23:59 Intake Total 751.42 / 751.42 391.66 / 591.66 475 / 475 Output Total 2100 / 2100 600 / 600 650 / 650 Balance -1348.58 / -1348.58 -208.34 / -8.34 -175 / -175 Lab / Micro Data Result Diagrams: 08/12/22 04:54 08/12/22 04:54 Labs: Laboratory Results - last 24 hr 08/13/22 11:10: POC Glucose 265 H 08/13/22 16:36: POC Glucose 178 H 08/13/22 21:55: POC Glucose 153 H 08/13/22 22:30: Vancomycin Trough 20.3 H 08/14/22 06:30: POC Glucose 85 Physical Exam Const alert Resp normal respiratory effort, no retractions, no use of accessory muscles and clearto auscultation bilaterally Cardio regular rate, regular rhythm, S1 normal heart sound and S2 normal heart sound GI normal to inspection, nondistended, normoactive bowel sounds, soft to palpation,non-tender and non-distended Extremity normal to inspection Assessment & Plan Assessment/Plan (1) Atrial flutter with rapid ventricular response: PLAN: Atrial flutter with rapid ventricular response/paroxysmal atrial fibrillation with RVR/hypercoagulable state due to atrial fibrillation Despite metoprolol IV, and Cardizem IV bolus x2 patient still remain in a flutter with RVR/A-fib with RVR. Cardizem drip started. Titrate Cardizem drip. Echocardiogram on 07/10/2022 was reviewed. Echocardiogram showed EF of 60% withstage II diastolic dysfunction. Normal left atrium. Normal right atrium. Mild1+ eccentric mitral valve insufficiency. Mild tricuspid valve insufficiency. Pulm artery systolic pressure was 38 mmHg. INR is therapeutic now. continue warfarin. 08/12: Restarted metoprolol tartrate and weaned off of diltiazem drip. Patient subsequently developed A-fib with RVR the morning of the and had to be restarted on the diltiazem drip. Consult cardiology 08/13: Seen by cardiology who started diltiazem 60 q6h in addition to metoprolol tartate. Dilt gtt turned off. 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 Stable Vancomycin continued PLAN: Plan Chronic conditions: * Heart failure with preserved ejection fraction: BNP of 750.3. Last BNP on file was 270.6. Radiologist impression of chest x-ray: No acute findings. Chest x-ray was visualized and I agree with cardiology interpretation. Stable. * Chronic normocytic anemia Stable * CKD stage IIIa Stable Trend BMP. * Diabetes mellitus Blood glucoses is . DVT prophylaxis: not indicated as pt is anticoagulated. Charges/Coding Visit Charges Inpatient E&M: 26873 Subs Hosp L2 08/14/22 1220 <Electronically signed by Wale Jacobsen DO> Cosigner Signature (if applicable): CC: ~ Signed ADDENDUM by Dr. Wale Jacobsen DO on 08/14/22 at 1645 Addendum HR has been fairly well controlled. Will continue dilt 60Q6 until tonight, then change to dilt CD 240 in AM. If HR remains controlled, then plan for DC /. 08/14/22 1645<Electronically signed by Wale Jacobsen DO> Cosigner Signature (if applicable): cc: ~* Signed [facility] Work Phone: 1([phone]) 112-172604-01-2023 Consult note Author Wale Estes [facility] August 14, 2022 12:12am Note Date/Time August 14, 2022 12:1 0am [facility] Medical Records Department [address] [place] [address] Pharmacokinetic/Renal -Consult 08/14/22 0006 MR#: [id number] Acct: [id number] Name: JOSELINE ELLIS Rep #:[id number] 2 : 1950 72 From: Wale Estes PCP: Dr. Bernie Reagan MD Status:A DM IN Y Location: [place] [address] Consult Pharmacy has been consulted to manage selected antiobiotic: Vancomycin Type of Consult: Follow-up Suspected Infection: Osteomyelitis Prior Doses of Antibiotics Received/Current Regimen: Medications Vancomycin HCl 1,250 mg/ (Sodium Chloride) 275 mls @ 167 mls/hr IV Q24H ROSALIND Last Admin: 08/13/22 23:57 Dose: 167 mls/hr Labs: Sodium 141 mmol/L (136-145) 08/12/22 04:54 Potassium 3.9 mmol/L (3.5-5.1) 08/12/22 04:54 Chloride 114 mmol/L (98-107) H 08/12/22 04:54 Carbon Dioxide 20.0 mmol/L (21.0-32.0) L 08/12/22 04:54 Anion Gap 7 (5-15) 08/12/22 04:54 BUN 35 mg/dL (7-18) H 08/12/22 04:54 Creatinine 1.07 mg/dL (0.55-1.02) H 08/12/22 04:54 Est GFR (MDRD) Af Amer 65 mL/min (>60) 08/12/22 04:54 Est GFR (MDRD) Non-Af 54 mL/min (>60) L 08/12/22 04:54 BUN/Creatinine Ratio 32.7 RATIO (10-20) H 08/12/22 04:54 Glucose 160 mg/dL (74-106) H 08/12/22 04:54 Vancomycin Trough 20.3 ug/mL (5.0-15.0) H 08/13/22 22:30 Weight used for dosin.5 kg Estimated Creatinine Clearance: 48.6 Goal Trough: 15-20 mcg/mL Pharmacy Plan for Drug Dosing: Vancomycin trough level was 20.3, nearly within the target range of 15-20. Per dosing calculator, continuing at 1250mg q24h will give an estimated trough of 19.0. Will continue same dosing and re-draw a trough in two days. Pharmacy Service will continue to monitor and adjust dosing as required. Follow-Up Labs: Trough Vancomycin Labs to be done on [date and time ordered]: 08/15/22 @2300 08/14/22 0012 <Electronically signed by Wale munson > Date _ Wale Dominguezignkaran Signature (if applicable): Date CC: ~ Signed [facility] Work Phone: [phone]) 930-788303-31-[address] James [facility] August 13, 2022 3:29pm Note Date/Time August 13, 2022 3:1 4pm [facility] Medical Records Department [address] [place] [address] Consultation - Cardiology 08/13/22 1513 MR#: [id number] Acct: [id number] Name: JOSELINE ELLIS Rep #:[id number] 9 : 1950 72 From: Anu aponte MD PCP: Dr. Bernie Reagan MD Status:A DM IN Location: [place] [address] Assessment & Plan Assessment/Plan (1) Paroxysmal atrial fibrillation with RVR: PLAN: I would recommend 60 mg p.o. every 6 hours of Cardizem. DC IV Cardizem half an hour after starting the p.o. Cardizem. Continue Coumadin. When the patient is ready for discharge the Cardizem can be switched to CD preparation based on the dose she ends up requiring. HPI Consult Data Date of Consult: 08/13/22 HPI Narrative Reason for Consultation: A-fib with RVR HPI Narrative: JOSELINE ELLIS, is a 72 F who presents with A-fib with RVR. Patient has a history of paroxysmal A-fib. She used to be on Eliquis but due to cost has beenswitched to Coumadin. She also has a PICC line and is on treatment for osteomyelitis in the right hand. Recent echo revealed preserved EF. Patient was started on IV Cardizem and has converted to sinus rhythm. Review of systems: All systems reviewed. All else is negative except in HPI [facility] Medical History Abnormal mammogram of right breast Abnormal mammogram of right breast Abscess of right middle finger Acute kidney injury Afib Alcohol use Anemia Anemia Anxiety Anxiety and depression Arthritis Atrial fibrillation Back pain Bacteremia Breast lump Burn injury of skin of finger Cardiology follow-up encounter Chronic cough COVID-19 vaccine series completed CPAP (continuous positive airway pressure) dependence CVA (cerebral vascular accident) Depression Depression with anxiety Diabetes Dietary restriction DKA (diabetic ketoacidoses) Essential hypertension Finger infection Flu vaccine need Former smoker Health care maintenance High cholesterol History of echocardiogram History of edema History of stress test History of UTI HTN (hypertension) Hyperlipidemia Hypertension Irregular heartbeat 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 MRSA infection 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 without evidence of necrosis Non-rheumatic mitral valve stenosis Nonrheumatic aortic (valve) stenosis Osteoarthritis Osteomyelitis of finger of right hand Osteoporosis Overactive bladder Pancreatitis Paroxysmal atrial fibrillation Post-menopausal Preoperative evaluation to rule out surgical contraindication Sleep apnea Urinary incontinence, overflow Venous insufficiency Vision problems Walker as ambulation aid Weakness Home Medications ferrous sulfate 325 mg (65 mg iron) tablet 325 mg PO DAILY Supplement 01/27/21 [History Last Taken 07/08/22] ascorbic acid (vitamin C) 500 mg tablet (Vitamin C) 500 mg PO DAILY vitamin 08/21/21 [History Last Taken 07/08/22] acetaminophen 325 mg capsule 650 mg PO PRN PRN Pain 12/02/21 [History Last Taken 07/08/22] cholecalciferol (vitamin D3) 50 mcg (2,000 unit) capsule 50 mcg PO DAILY [id number]/19/22 [History Last Taken 07/08/22] glimepiride 4 mg tablet 4 mg PO BID dm 3 months #180 tabs 06/24/22 [Rx Last Taken 07/09/22] losartan 50 mg tablet 50 mg PO BID bp #180 tabs 06/24/22 [Rx Last Taken 07/09/22] oxybutynin chloride 15 mg tablet,extended release 24 hr 15 mg PO BID bladder #180 tabs 06/24/22 [Rx Last Taken 07/09/22] sertraline 100 mg tablet (Zoloft) 100 mg PO DAILY anxiety #90 tabs 06/24/22 [Rx Last Taken 07/08/22] metoprolol tartrate 50 mg tablet 50 mg PO BID heart #180 tabs 06/28/22 [Rx Last Taken 07/09/22] metformin 1,000 mg tablet 1,000 mg PO BID DM #180 tabs 07/06/22 [Rx Last Taken 07/09/22] simvastatin 20 mg tablet 20 mg PO QHS cholesterol #90 tabs 07/06/22 [Rx Last Taken 07/08/22] amlodipine 10 mg tablet 10 mg PO DAILY BP 07/09/22 [History Last Taken 07/09/22] multivitamin 1 tab PO DAILY SUPPLEMENT 07/09/22 [History Last Taken 07/08/22] aspirin 81 mg chewable tablet 81 mg PO BREAKFAST Heart 08/11/22 [History Last Taken Unknown] vancomycin 1 gram/200 mL in dextrose 5 % intravenous piggyback 1,000 mg IV Q24H Antibiotic 08/11/22 [History Last Taken Unknown] warfarin 2.5 mg tablet (Jantoven) 2.5 mg PO DINNER Blood Thinner 08/11/22 [History Last Taken Unknown] Allergy/AdvReac Type Severity Reaction Status Date / Time fosinopril [From Monopril] Allergy Unknown unknown Verified 08/11/22 15:40 pioglitazone AdvReac Other Verified 08/11/22 15:40 Family History (Updated 08/12/22 @ 00:50 by Sarahi Mathew) Father Diabetes High cholesterol Heart disease Melanoma Hypertension Mother Heart disease Brother AIDS (acquired immune deficiency syndrome) Surgical History History of back surgery History of carpal tunnel release History of hand surgery History of hysterectomy History of left elbow replacement History of surgical amputation of finger of right hand Hx of colonoscopy S/P hysterectomy S/P ORIF (open reduction internal fixation) fracture Status post surgical amputation of finger of right hand Social History household members: none Smoking Status: Former smoker how long ago did patient quit smokin years ago alcohol intake: current alcohol intake frequency: holidays/special occasions only substance use type: does not use what type of physical activity do you participate in: other details: aquasize Physical Exam Const alert and oriented x3 HEENT normocephalic Eyes no scleral icterus Resp normal respiratory effort Cardio regular rate and regular rhythm Psych mental status grossly normal Risk Stratification Risk Stratification Applicable: No Charges/Coding Visit Charges Inpatient E&M: 17137 Init Hosp L2 Objective Data Vital Signs: Vital Signs Temp Pulse Resp BP Pulse Ox O2 Del Method O2 Flow Rate 97.9 F 67 27 H 120/68 95 Nasal Cannula 2 08/13/22 08:15 08/13/22 14:22 08/13/22 14:22 08/13/22 14:22 08/13/22 14:22 08/13/22 14:22 08/13/22 14:22 Oxygen Flow Rate (L/min) 2 Oxygen Delivery Method Nasal Cannula Weight: 188 lb 7.924 oz Body Mass Index (BMI) 35.6 Intake & Output: Intake and Output for Last 24 Hours 08/11/22 08/12/22 08/13/22 23:59 23:59 23:59 Intake Total 1999 751.42 / 751.42 364.75 / 364.75 Output Total 2099 / 2099 600 / 600 Balance 1999 -1348.58 / -1348.58 -235.25 / -235.25 Lab / Micro Data Result Diagrams: 08/12/22 04:54 08/12/22 04:54 Labs: Laboratory Results - last 24 hr 08/12/22 16:02: POC Glucose 83 08/12/22 22:27: POC Glucose 112 H 08/13/22 05:23: PT 22.5 H, INR 2.0 08/13/22 06:42: POC Glucose 153 H 08/13/22 11:10: POC Glucose 265 H Cardiology Labs/Tests 08/13/22 05:23: PT 22.5 H, INR 2.0 Rhythm: EKG: ECHO: Stress Test: Cardiac Cath: PCI: CT Surgery: Holter monitor: EPS: PPM: CXR: Chest CT Scan: 08/13/22 1529 <Electronically signed by Anu James MD> Cosigner Signature (if applicable): CC: Dr. Bernie Reagan MD; Dr. Nicholas Delvalle MD; Dr. Anu James MD~ Signed [facility] Work Phone: 1(331) 423-842203-31-[address] Jacobsen [facility] August 13, 2022 1:45pm Note Date/Time August 13, 2022 8:3 0am [facility] Medical Records Department [address] [place] [address] Progress Note - Hospitalist 08/13/22821 MR#: [id number] Acct: [id number] Name: JOSELINE ELLIS Rep #:[id number] : 1950 72 From: Wale Jacobsen DO PCP: Dr. 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 Objective Data Objective Data Vital Signs: Vital Signs Temp Pulse Resp BP Pulse Ox O2 Del Method O2 Flow Rate 36.9 C 142 H 21 H 127/88 H 94 Nasal Cannula 2 08/13/22 07:00 08/13/22 07:24 08/13/22 07:24 08/13/22 07:24 08/13/22 07:24 08/13/22 07:24 08/13/22 07:24 Oxygen Flow Rate (L/min) 2 Oxygen Delivery Method Nasal Cannula Weight: 85.5 kg Body Mass Index (BMI) 35.6 Intake & Output: Intake and Output for Last 24 Hours 08/11/22 08/12/22 08/13/22 23:59 23:59 23:59 Intake Total 1999 751.42 / 751.42 275 / 275 Output Total 2099 600 / 600 Balance 1999 -1348.58 / -1348.58 -325 / -325 Lab / Micro Data Result Diagrams: 08/12/22 04:54 08/12/22 04:54 Labs: Laboratory Results - last 24 hr 08/12/22 16:02: POC Glucose 83 08/12/22 22:27: POC Glucose 112 H 08/13/22 05:23: PT 22.5 H, INR 2.0 08/13/22 06:42: POC Glucose 153 H Physical Exam Const alert and no apparent distress HEENT head/scalp atraumatic Neck no lymphadenopathy Resp normal respiratory effort, no retractions, no use of accessory muscles and clearto auscultation bilaterally Cardio regular rate, regular rhythm, S1 normal heart sound and S2 normal heart sound GI normal to inspection, nondistended, normoactive bowel sounds, soft to palpation and non-tender Assessment & Plan Assessment/Plan (1) Atrial flutter with rapid ventricular response: PLAN: Atrial flutter with rapid ventricular response/paroxysmal atrial fibrillation with RVR/hypercoagulable state due to atrial fibrillation Despite metoprolol IV, and Cardizem IV bolus x2 patient still remain in a flutter with RVR/A-fib with RVR. Cardizem drip started. Titrate Cardizem drip. Echocardiogram on 07/10/2022 was reviewed. Echocardiogram showed EF of 60% withstage II diastolic dysfunction. Normal left atrium. Normal right atrium. Mild1+ eccentric mitral valve insufficiency. Mild tricuspid valve insufficiency. Pulm artery systolic pressure was 38 mmHg. INR is therapeutic now. continue warfarin. 08/12: Restarted metoprolol tartrate and weaned off of diltiazem drip. Patient subsequently developed A-fib with RVR the morning of the and had to be restarted on the diltiazem drip. 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 Stable Vancomycin continued PLAN: Plan Chronic conditions: * Heart failure with preserved ejection fraction: BNP of 750.3. Last BNP on file was 270.6. Radiologist impression of chest x-ray: No acute findings. Chest x-ray was visualized and I agree with cardiology interpretation. Stable. * Chronic normocytic anemia Stable * CKD stage IIIa Stable Trend BMP. * Diabetes mellitus Blood glucoses is . DVT prophylaxis: not indicated as pt is anticoagulated. Charges/Coding Visit Charges Inpatient E&M: 06514 Subs Hosp L2 08/13/22 1345 <Electronically signed by Wale Jacobsen DO> Cosigner Signature (if applicable): CC: ~ Signed [facility] Work Phone: [phone]) 245-593803-30-[address] Delvalle [facility] August 12, 2022 7:10pm Note Date/Time August 12, 2022 12: 34am [facility] Medical Records Department [address] [place] [address] Pharmacokinetic/Renal -Consult 08/12/22 0032 MR#: [id number] Acct: [id number] Name: JOSELINE ELLIS Rep #:[id number] 1 : 1950 72 From: Wale Estes PCP: Dr. Bernie Reagan MD Status:A DM IN Y Location: [place] [address] Consult Pharmacy has been consulted to manage selected antiobiotic: Vancomycin Type of Consult: New start Suspected Infection: Osteomyelitis Prior Doses of Antibiotics Received/Current Regimen: Medications Vancomycin HCl 1,250 mg/ (Sodium Chloride) 275 mls @ 167 mls/hr IV Q24H ROSALIND Vancomycin HCl 1,250 mg/ (Sodium Chloride) 275 mls @ 167 mls/hr IV X1 ONE Stop: 08/12/22 01:08 Last Admin: 08/11/22 23:40 Dose: 167 mls/hr Labs: Sodium 138 mmol/L (136-145) 08/11/22 17:06 Potassium 5.1 mmol/L (3.5-5.1) 08/11/22 17:06 Chloride 108 mmol/L (98-107) H 08/11/22 17:06 Carbon Dioxide 24.0 mmol/L (21.0-32.0) 08/11/22 17:06 Anion Gap 6 (5-15) 08/11/22 17:06 BUN 45 mg/dL (7-18) H 08/11/22 17:06 Creatinine 1.33 mg/dL (0.55-1.02) H 08/11/22 17:06 Est GFR (MDRD) Af Amer 51 mL/min (>60) L 08/11/22 17:06 Est GFR (MDRD) Non-Af 42 mL/min (>60) L 08/11/22 17:06 BUN/Creatinine Ratio 33.8 RATIO (10-20) H 08/11/22 17:06 Glucose 169 mg/dL (74-106) H 08/11/22 17:06 Weight used for dosin.5 kg Estimated Creatinine Clearance: 39 Goal Trough: 15-20 mcg/mL Pharmacy Plan for Drug Dosing: Pharmacy Service will continue to monitor and adjust dosing as required. Follow-Up Labs: Trough Vancomycin Labs to be done on [date and time ordered]: 08/13/22 @2300 08/12/22 0034 <Electronically signed by Wale munson > Date _ Wale Estes 08/12/221909 <Electronically signed by Nicholas flores MD> Cosigner Signature (if applicable): Date Nicholas Delvalle MD CC: ~ Signed [facility] Work Phone: [phone]) 696-541403-30-2023 History and physical note Author Dr. Delvalle [facility] August 12, 2022 7:09pm Note Date/Time August 11, 2022 10: 34pm [facility] Medical Records Department [address] [place] [address] H&P Exam - Hospitalist 08/11/222231 MR#: [id number] Acct: [id number] Name: JOSELINE ELLIS Rep #:[id number] : 1950 72 From: Nicholas Delvalle MD PCP: Dr. Bernie Reagan MD Status:A DM IN Location: [facility] [id number] HPI - General General Date of Admission: 08/11/22 Date of Service: 08/11/22 Chief Complaint: Clogged PICC line and tachycardia HPI Narrative JOSELINE ELLIS, is a 72 F with a significant history of diabetes mellitus; who presents to emergency department because of a clogged PICC line because of tachycardia. 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 Patient's home health nurse could not give her antibiotics IV because of clogged PICC line. On presentation patient was found to be in A flutter. However patient did not feel the A flutter. Patient wanted to be discharged home from the ED. However multiple IV intervention to control her heart rate was unsuccessful. FORMERLY [facility], [facility] Medical History Abnormal mammogram of right breast Abnormal mammogram of right breast Abscess of right middle finger Acute kidney injury Afib Alcohol use Anemia Anemia Anxiety Anxiety and depression Arthritis Atrial fibrillation Back pain Bacteremia Breast lump Burn injury of skin of finger Cardiology follow-up encounter Chronic cough COVID-19 vaccine series completed CPAP (continuous positive airway pressure) dependence CVA (cerebral vascular accident) Depression Depression with anxiety Diabetes Dietary restriction DKA (diabetic ketoacidoses) Essential hypertension Finger infection Flu vaccine need Former smoker Health care maintenance High cholesterol History of echocardiogram History of edema History of stress test History of UTI HTN (hypertension) Hyperlipidemia Hypertension Irregular heartbeat 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 MRSA infection 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 without evidence of necrosis Non-rheumatic mitral valve stenosis Nonrheumatic aortic (valve) stenosis Osteoarthritis Osteomyelitis of finger of right hand Osteoporosis Overactive bladder Pancreatitis Paroxysmal atrial fibrillation Post-menopausal Preoperative evaluation to rule out surgical contraindication Sleep apnea Urinary incontinence, overflow Venous insufficiency Vision problems Walker as ambulation aid Weakness Home Medications ferrous sulfate 325 mg (65 mg iron) tablet 325 mg PO DAILY Supplement 01/27/21 [History Last Taken 07/08/22] ascorbic acid (vitamin C) 500 mg tablet (Vitamin C) 500 mg PO DAILY vitamin 08/21/21 [History Last Taken 07/08/22] acetaminophen 325 mg capsule 650 mg PO Q4H PRN Pain 12/02/21 [History Last Taken 07/08/22] cholecalciferol (vitamin D3) 50 mcg (2,000 unit) capsule 50 mcg PO DAILY [id number]/19/22 [History Last Taken 07/08/22] glimepiride 4 mg tablet 4 mg PO BID dm 3 months #180 tabs 06/24/22 [Rx Last Taken 07/09/22] losartan 50 mg tablet 50 mg PO BID bp #180 tabs 06/24/22 [Rx Last Taken 07/09/22] oxybutynin chloride 15 mg tablet,extended release 24 hr 15 mg PO BID bladder #180 tabs 06/24/22 [Rx Last Taken 07/09/22] sertraline 100 mg tablet (Zoloft) 100 mg PO DAILY anxiety #90 tabs 06/24/22 [Rx Last Taken 07/08/22] metoprolol tartrate 50 mg tablet 50 mg PO BID heart #180 tabs 06/28/22 [Rx Last Taken 07/09/22] metformin 1,000 mg tablet 1,000 mg PO BID DM #180 tabs 07/06/22 [Rx Last Taken 07/09/22] simvastatin 20 mg tablet 20 mg PO QHS cholesterol #90 tabs 07/06/22 [Rx Last Taken 07/08/22] amlodipine 10 mg tablet 10 mg PO DAILY BP 07/09/22 [History Last Taken 07/09/22] multivitamin 1 tab PO DAILY SUPPLEMENT 07/09/22 [History Last Taken 07/08/22] aspirin 81 mg chewable tablet 81 mg PO BREAKFAST Heart 08/11/22 [History Last Taken Unknown] vancomycin 1 gram/200 mL in dextrose 5 % intravenous piggyback 1,000 mg IV Q24H Antibiotic 08/11/22 [History Last Taken Unknown] warfarin 2.5 mg tablet (Jantoven) 2.5 mg PO DINNER Blood Thinner 08/11/22 [History Last Taken Unknown] Allergy/AdvReac Type Severity Reaction Status Date / Time fosinopril [From Monopril] Allergy Unknown unknown Verified 08/11/22 15:40 pioglitazone AdvReac Other Verified 08/11/22 15:40 Family History Father Diabetes Hypertension High cholesterol Heart disease Melanoma Surgical History History of back surgery History of carpal tunnel release History of hand surgery History of hysterectomy History of left elbow replacement History of surgical amputation of finger of right hand Hx of colonoscopy S/P hysterectomy S/P ORIF (open reduction internal fixation) fracture Status post surgical amputation of finger of right hand Social History household members: none Smoking Status: Never smoker how long ago did patient quit smokin years ago alcohol intake: current alcohol intake frequency: holidays/special occasions only substance use type: does not use what type of physical activity do you participate in: other details: aquasize ROS ROS Narrative Pertinent positives and pertinent negatives as noted in HPI. All other systems were reviewed and are negative Vital Signs Vital Signs Vital Signs: 08/11/22 15:37 08/11/22 15:54 08/11/22 16:02 Temperature 96.6 F L Temperature Source Temporal Pulse Rate 133 H Respiratory Rate 18 Respiratory Effort Normal Non-Labored Blood Pressure 139/88 H Blood Pressure Mean 105 Pulse Ox 97 Oxygen Delivery Method Room Air Room Air 08/11/22 17:36 08/11/22 20:25 08/11/22 21:00 Temperature Temperature Source Pulse Rate 134 H 135 H 135 H Respiratory Rate 23 H 28 H Respiratory Effort Blood Pressure 137/104 H 138/97 H Blood Pressure Mean 115 110 Pulse Ox 98 98 Oxygen Delivery Method Room Air Room Air Weight Weight: 85.5 kg Body Mass Index (BMI) 35.6 Physical Exam Narrative Physical exam: General: Well-nourished, well-developed. Head: Normocephalic, atraumatic, no tenderness Eyes: Vision is grossly intact. EOMI ENT, no trauma, mildly dry with crevices. No rhinorrhea Neck: Nontender, No thyromegaly. CVS: Irregularly irregular rate and rhythm. S1-S2 present. Respiratory : clear to auscultation bilaterally, chest wall nontender Abdomen: Soft, nontender, nondistended, normal bowel sounds, no masses : Deferred Back: Nontender, no CVA tenderness. Extremities: Loss of intermediate phalanx of right middle finger; ulcer. Abrasions on bilateral nolasco; left worse than right. Skin: Normal color, no trauma. Neuro: Alert, oriented, cranial nerves II through XII grossly intact. Psychiatry: Normal mood. Normal affect. Not depressed. Not anxious. Results Lab / Micro Data Result Diagrams: 08/11/22 17:06 08/11/22 17:06 Labs: Laboratory Results - last 24 hr 08/11/22 17:06: WBC 4.3 L, RBC 4.00 L, Hgb 11.0 L, Hct 35.0 L, MCV 87.5, MCH 27.5, MCHC 31.4 L, RDW Std Deviation 49.7 H, RDW Coeff of Zee 15.7 H, Plt Count 256, MPV 9.9, Immature Gran % (Auto) 0.200, Neut % (Auto) 64.1, Lymph % (Auto) 20.6, [place] % (Auto) 10.0, Eos % (Auto) 4.4, Baso % (Auto) 0.7, Absolute Neuts (auto) 2.7, Absolute Lymphs (auto) 0.88, Nucleated RBC % 0 08/11/22 17:06: Sodium 138, Potassium 5.1, Chloride 108 H, Carbon Dioxide 24.0, Anion Gap 6, BUN 45 H, Creatinine 1.33 H, Estim Creat Clear Calc 29.70, Est GFR (MDRD) Af Amer 51 L, Est GFR (MDRD) Non-Af 42 L, BUN/Creatinine Ratio 33.8 H, Glucose 169 H, Calcium 9.6, Troponin I High Sens 10 08/11/22 17:06: PT 17.3 H, INR 1.5 08/11/22 17:06: B-Natriuretic Peptide 750.3 H Radiology Impression Chest X-Ray 08/11/22 16:10 IMPRESSION: There are no acute findings. Electronically Signed: Evans Goode MD at 16:26 EDT , Assessment & Plan Assessment/Plan (1) Atrial flutter with rapid ventricular response: (2) Paroxysmal atrial fibrillation with RVR: (3) Hypercoagulable state due to atrial fibrillation: (4) retirement (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: (5) Skin ulcer of finger: (6) Osteomyelitis of finger of right hand: (7) MRSA infection: (8) Occluded PICC line: PLAN: Plan Atrial flutter with rapid ventricular response/paroxysmal atrial fibrillation with RVR/hypercoagulable state due to atrial fibrillation Despite metoprolol IV, and Cardizem IV bolus x2 patient still remain in a flutter with RVR/A-fib with RVR. Cardizem drip started. Titrate Cardizem drip. Place on PCU stepdown. Echocardiogram on 07/10/2022 was reviewed. Echocardiogram showed EF of 60% withstage II diastolic dysfunction. Normal left atrium. Normal right atrium. Mild1+ eccentric mitral valve insufficiency. Mild tricuspid valve insufficiency. Pulm artery systolic pressure was 38 mmHg. INR is subtherapeutic. Lovenox subcutaneous ordered. Escalate dose of home warfarin. Potassium is normal. Magnesium order written as 2.1. Trend BMP. Heart failure with preserved ejection fraction BNP of 750.3. Last BNP on file was 270.6. Radiologist impression of chest x-ray: No acute findings. Chest x-ray was visualized and I agree with cardiology interpretation. Stable. MRSA osteomyelitis of right finger White count mildly low at 4300. Stable Vancomycin continued Chronic normocytic anemia Stable Occluded PICC line Resolved at the ED with alteplase. CKD stage IIIa Stable Trend BMP. Diabetes mellitus Blood glucoses is . DVT prophylaxis Subcutaneous Lovenox and warfarin for A-fib as above. Charges/Coding Visit Charges Inpatient E&M: 19881 Init Hosp L3 08/12/22 0014 <Electronically signed by Nicholas Delvalle MD> Cosigner Signature (if applicable): CC: Dr. Bernie Reagan MD; Dr. Nicholas Delvalle MD~ Signed ADDENDUM by Dr. Nicholas Delvalle MD on 08/12/22 at 1909 Addendum Chronic HFpEF Heart failure with preserved ejection fraction BNP of 750.3.? Last BNP on file was 270.6. Radiologist impession of chest x-ray: No acute findings.?? Chest x-ray was visualized and I agree with cardiology interpretation. Stable. 08/12/221908<Electronically signed by Nicholas Delvalle MD> Cosigner Signature (if applicable): cc: Dr. Bernie Reagan MD; Dr. Nicholas Delvalle MD ~* Signed [facility] Work Phone: 1(203) 161-351103-30-[address] Jacobsen [facility] August 12, 2022 1:58pm Note Date/Time August 12, 2022 8:5 7am [facility] Medical Records Department [address] [place] [address] Progress Note - Hospitalist 08/12/22 0850 MR#: [id number] Acct: [id number] Name: JOSELINE ELLIS Rep #:[id number] : 1950 72 From: Wale Jacobsen DO PCP: Dr. 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 Denies any chest pain or palpitations. Objective Data Objective Data Vital Signs: Vital Signs Temp Pulse Resp BP Pulse Ox O2 Del Method O2 Flow Rate 37.1 C 72 19 H 116/67 97 Nasal Cannula 2 08/12/22 08:00 08/12/22 08:00 08/12/22 08:00 08/12/22 08:00 08/12/22 08:00 08/12/22 08:00 08/12/22 08:00 Oxygen Flow Rate (L/min) 2 Oxygen Delivery Method Nasal Cannula Weight: 85.5 kg Body Mass Index (BMI) 35.6 Intake & Output: Intake and Output for Last 24 Hours 08/10/22 08/11/22 08/12/22 23:59 23:59 23:59 Intake Total 1999 635.25 / 635.25 Output Total 400 / 400 Balance 1999 235.25 / 235.25 Lab / Micro Data Result Diagrams: 08/12/22 04:54 08/12/22 04:54 Labs: Laboratory Results - last 24 hr 08/11/22 17:06: WBC 4.3 L, RBC 4.00 L, Hgb 11.0 L, Hct 35.0 L, MCV 87.5, MCH 27.5, MCHC 31.4 L, RDW Std Deviation 49.7 H, RDW Coeff of Zee 15.7 H, Plt Count 256, MPV 9.9, Immature Gran % (Auto) 0.200, Neut % (Auto) 64.1, Lymph % (Auto) 20.6, [place] % (Auto) 10.0, Eos % (Auto) 4.4, Baso % (Auto) 0.7, Absolute Neuts (auto) 2.7, Absolute Lymphs (auto) 0.88, Nucleated RBC % 0 08/11/22 17:06: Sodium 138, Potassium 5.1, Chloride 108 H, Carbon Dioxide 24.0, Anion Gap 6, BUN 45 H, Creatinine 1.33 H, Estim Creat Clear Calc 29.70, Est GFR (MDRD) Af Amer 51 L, Est GFR (MDRD) Non-Af 42 L, BUN/Creatinine Ratio 33.8 H, Glucose 169 H, Calcium 9.6, Troponin I High Sens 10 08/11/22 17:06: PT 17.3 H, INR 1.5 08/11/22 17:06: B-Natriuretic Peptide 750.3 H 08/11/22 22:31: Magnesium 2.1 08/12/22 01:17: POC Glucose 109 H 08/12/22 04:54: WBC 4.6, RBC 3.51 L, Hgb 9.7 L, Hct 30.9 L, MCV 88.0, MCH 27.6, MCHC 31.4 L, RDW Std Deviation 50.9 H, RDW Coeff of Zee 15.9 H, Plt Count 221, MPV 9.8, Immature Gran % (Auto) 0.400, Neut % (Auto) 48.4, Lymph % (Auto) 33.4, [place] % (Auto) 10.0, Eos % (Auto) 6.7 H, Baso % (Auto) 1.1 H, Absolute Neuts (auto) 2.2, Absolute Lymphs (auto) 1.54, Nucleated RBC % 0 08/12/22 04:54: Sodium 141, Potassium 3.9, Chloride 114 H, Carbon Dioxide 20.0 L, Anion Gap 7, BUN 35 H, Creatinine 1.07 H, Estim Creat Clear Calc 36.92, Est GFR (MDRD) Af Amer 65, Est GFR (MDRD) Non-Af 54 L, BUN/Creatinine Ratio 32.7 H, Glucose 160 H, Calcium 8.6 08/12/22 04:54: PT 20.6 H, INR 1.8 08/12/22 06:51: POC Glucose 118 H Radiography Diagnostic Testing: Radiology Impression Chest X-Ray 08/11/22 16:10 IMPRESSION: There are no acute findings. Electronically Signed: Evans Goode MD at 16:26 EDT , Physical Exam Const alert and no apparent distress HEENT head/scalp atraumatic and moist oral mucous membranes Resp normal respiratory effort, no retractions, no use of accessory muscles and clearto auscultation bilaterally Cardio regular rate, regular rhythm, S1 normal heart sound and S2 normal heart sound GI normal to inspection, nondistended, normoactive bowel sounds, soft to palpation,non-tender and non-distended Assessment & Plan Assessment/Plan (1) Atrial flutter with rapid ventricular response: PLAN: Atrial flutter with rapid ventricular response/paroxysmal atrial fibrillation with RVR/hypercoagulable state due to atrial fibrillation Despite metoprolol IV, and Cardizem IV bolus x2 patient still remain in a flutter with RVR/A-fib with RVR. Cardizem drip started. Titrate Cardizem drip. Place on PCU stepdown. Echocardiogram on 07/10/2022 was reviewed. Echocardiogram showed EF of 60% withstage II diastolic dysfunction. Normal left atrium. Normal right atrium. Mild1+ eccentric mitral valve insufficiency. Mild tricuspid valve insufficiency. Pulm artery systolic pressure was 38 mmHg. INR is subtherapeutic. Lovenox subcutaneous ordered. Escalate dose of home warfarin. Potassium is normal. Magnesium order written as 2.1. Heart rate overall improved. Try going down on the diltiazem drip and the heartrate went up to 120s. Will try to resume the metoprolol and see about weaning off of the diltiazem drip. If unable to do so then may need cardiology input. (2) Occluded PICC line: PLAN: Occluded PICC line: Resolved at the ED with alteplase. PLAN: Plan Chronic conditions: * Heart failure with preserved ejection fraction: BNP of 750.3. Last BNP on file was 270.6. Radiologist impression of chest x-ray: No acute findings. Chest x-ray was visualized and I agree with cardiology interpretation. Stable. * MRSA osteomyelitis of right finger: White count mildly low at 4300. Stable. Vancomycin continued * Chronic normocytic anemia: Stable * CKD stage IIIa Stable Trend BMP. * Diabetes mellitus type II: Stable. Continue glimepiride and metformine DVT prophylaxis Subcutaneous Lovenox and warfarin for A-fib as above. Charges/Coding Visit Charges Inpatient E&M: 12900 Subs Hosp L2 08/12/22 1972 <Electronically signed by Wale Jacobsen DO> Cosigner Signature (if applicable): CC: ~ Signed [facility] Work Phone: 1(152) 608-825203-30-2023 Discharge summary Author Tj Manzano [facility] August 11, 2022 11:42pm Note Date/Time August 11, 2022 4:5 2pm [facility] Medical Records Department [address] [place] [address] Emergency Department Summary 08/11/22 MR#: [id number] Acct: [id number] Name: JOSELINE ELLIS Rep #:[id number] 1 : 1950 72 From: Monty Mota DO PCP: Dr. Bernie Reagan MD Status:A DM IN Location: [facility] [id number] Tj Manzano MD on 08/11/22 at 2342 On reevaluation, patient's heart rate down into the 90s, but it sped up to the 130 range in a relatively short period of time so we started the patient on Cardizem here in the emergency department. Will be admitted to the ICU. Critical care time: 30 minutes total, not including procedure time, including documentation, review of tests, bedside time with the patient, discussing with consultants for admission. 08/11/22 5387<Electronically signed by Tj Manzano MD> Cosigner Signature (if applicable): cc: Dr. Bernie Reagan MD ~* Signed HPI History of Present Illness Chief Complaint: Palpitations Narrative Narrative: Patient is a 72-year-old female who is presenting to the ER today because chief complaint of tachycardia and her left PICC line is clogged as well. Patient lives at home by herself. Patient has a friend at bedside. Patient also had anepisode of diarrhea last night and today. Otherwise patient has no symptoms. Patient does have a history of A-fib. Patient is on Coumadin. Patient was admitted to the hospital 2 or 3 years ago for A-fib complications. Patient currently has no headache, neck pain. No chest pain or shortness of breath. Noabdominal pain, nausea or vomiting. No other acute complaints. Patient has no pain, redness or swelling to her left arm. Patient has no history of PE. Patient was on Eliquis for her A-fib, then she was switched to Coumadin secondary to cost. Patient is compliant with all of her medications. Patient had a home health nurse that was not able to use her PICC line so patient was sent to the ER to help with her PICC line use and tachycardia, PFSH PFSH Medical History Abnormal mammogram of right breast Abnormal mammogram of right breast Abscess of right middle finger Acute kidney injury Afib Alcohol use Anemia Anemia Anxiety Anxiety and depression Arthritis Atrial fibrillation Back pain Bacteremia Breast lump Burn injury of skin of finger Cardiology follow-up encounter Chronic cough COVID-19 vaccine series completed CPAP (continuous positive airway pressure) dependence CVA (cerebral vascular accident) Depression Depression with anxiety Diabetes Dietary restriction DKA (diabetic ketoacidoses) Essential hypertension Finger infection Flu vaccine need Former smoker Health care maintenance High cholesterol History of echocardiogram History of edema History of stress test History of UTI HTN (hypertension) Hyperlipidemia Hypertension Irregular heartbeat 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 MRSA infection 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 without evidence of necrosis Non-rheumatic mitral valve stenosis Nonrheumatic aortic (valve) stenosis Osteoarthritis Osteomyelitis of finger of right hand Osteoporosis Overactive bladder Pancreatitis Paroxysmal atrial fibrillation Post-menopausal Preoperative evaluation to rule out surgical contraindication Sleep apnea Urinary incontinence, overflow Venous insufficiency Vision problems Walker as ambulation aid Weakness Home Medications ferrous sulfate 325 mg (65 mg iron) tablet 325 mg PO DAILY Supplement 01/27/21 [History Last Taken 07/08/22] ascorbic acid (vitamin C) 500 mg tablet (Vitamin C) 500 mg PO DAILY vitamin 08/21/21 [History Last Taken 07/08/22] acetaminophen 325 mg capsule 650 mg PO Q4H PRN Pain 12/02/21 [History Last Taken 07/08/22] cholecalciferol (vitamin D3) 50 mcg (2,000 unit) capsule 50 mcg PO DAILY [id number]/19/22 [History Last Taken 07/08/22] denosumab 60 mg/mL subcutaneous syringe (Prolia) 60 mg subcut [id number] #1 mL 03/11/22 [Rx Last Taken Unknown] glimepiride 4 mg tablet 4 mg PO BID dm 3 months #180 tabs 06/24/22 [Rx Last Taken 07/09/22] losartan 50 mg tablet 50 mg PO BID bp #180 tabs 06/24/22 [Rx Last Taken 07/09/22] oxybutynin chloride 15 mg tablet,extended release 24 hr 15 mg PO BID bladder #180 tabs 06/24/22 [Rx Last Taken 07/09/22] sertraline 100 mg tablet (Zoloft) 100 mg PO DAILY anxiety #90 tabs 06/24/22 [Rx Last Taken 07/08/22] metoprolol tartrate 50 mg tablet 50 mg PO BID heart #180 tabs 06/28/22 [Rx Last Taken 07/09/22] metformin 1,000 mg tablet 1,000 mg PO BID DM #180 tabs 07/06/22 [Rx Last Taken 07/09/22] simvastatin 20 mg tablet 20 mg PO QHS cholesterol #90 tabs 07/06/22 [Rx Last Taken 07/08/22] amlodipine 10 mg tablet 10 mg PO DAILY BP 07/09/22 [History Last Taken 07/09/22] multivitamin 1 tab PO DAILY SUPPLEMENT 07/09/22 [History Last Taken 07/08/22] ciprofloxacin HCl 500 mg tablet 500 mg PO BID 10 days #20 tabs 07/14/22 [Rx Last Taken Unknown] vancomycin 1 gram/200 mL in dextrose 5 % intravenous piggyback 1,000 mg IV Q24H 40 days #8,000 mL 07/14/22 [Rx Last Taken Unknown] aspirin 81 mg chewable tablet 81 mg PO BREAKFAST #0 tabs 07/15/22 [Rx Last Taken Unknown] warfarin 2.5 mg tablet (Jantoven) 2.5 mg PO DINNER #30 tabs 07/30/22 [Rx Last Taken Unknown] Allergy/AdvReac Type Severity Reaction Status Date / Time fosinopril [From Monopril] Allergy Unknown unknown Verified 08/11/22 15:40 pioglitazone AdvReac Other Verified 08/11/22 15:40 Family History Father Diabetes Hypertension High cholesterol Heart disease Melanoma Surgical History History of back surgery History of carpal tunnel release History of hand surgery History of hysterectomy History of left elbow replacement History of surgical amputation of finger of right hand Hx of colonoscopy S/P hysterectomy S/P ORIF (open reduction internal fixation) fracture Status post surgical amputation of finger of right hand Social History household members: none Smoking Status: Never smoker how long ago did patient quit smokin years ago alcohol intake: current alcohol intake frequency: holidays/special occasions only substance use type: does not use what type of physical activity do you participate in: other details: chantal LOMBARDO ROS ED ROS Narrative REVIEW OF SYSTEMS: Unless otherwise stated in this report the patient's positiveand negative responses for review of systems for constitutional, eyes, ENT, cardiovascular, respiratory, gastrointestinal, neurological, , musculoskeletal, and integument systems and related systems to the presenting problem are either stated in the history of present illness or were not pertinent or were negative for the symptoms and/or complaints related to the presenting medical problem. EXAM Physical Exam Narrative Exam Narrative: Vital signs reviewed and patient is not hypoxic. General: The patient appears well and in no apparent distress. Patient is resting comfortably on cart. Not toxic, lethargic, or listless. Skin: Warm, dry, no pallor noted. There is no rash noted. Patient has no redness, swelling around her left upper extremity. Patient has chronic healing sores to her bilateral lower extremities, and her left anterior nolasco. Head: Normocephalic, atraumatic Eye: Normal conjunctiva, no drainage, EOMI. PERRL. Ears, Nose, Mouth, and Throat: oral mucosa is moist. Nares patent. Mouth withoutvesicles. Ear canals patent. Cardiovascular: Increased irregular regular Rate and Rhythm, no murmurs, gallops, or rubs Respiratory: Patient is in no distress, no accessory muscle use, lungs are clearto auscultation, no wheezing, rales or rhonchi Back: non-tender, no CVA tenderness bilaterally to percussion. NO CTLS midline or paracervicl tenderness to palpation. GI: Soft, no tenderness to palpation, no masses appreciated. No rebound, guarding, or rigidity noted. Musculoskeletal: The patient has full range of motion of all extremities and joints with no difficulty. Patient has no pain to palpation to the posterior aspect of her left upper extremity. Patient's PICC line is intact. No tenderness, redness, or signs of cellulitis around the PICC line. Patient has no motor, no sensory deficits. Neurological: A&O x4, normal speech, no focal neurological deficits. Psychiatric: Cooperative Const Vital Signs: 08/11/22 15:37 08/11/22 15:54 08/11/22 16:02 Temperature 96.6 F L Temperature Source Temporal Pulse Rate 133 H Respiratory Rate 18 Respiratory Effort Normal Non-Labored Blood Pressure 139/88 H Blood Pressure Mean 105 Pulse Ox 97 Oxygen Delivery Method Room Air Room Air 08/11/22 17:36 08/11/22 20:25 08/11/22 21:00 Temperature Temperature Source Pulse Rate 134 H 135 H 135 H Respiratory Rate 23 H 28 H Respiratory Effort Blood Pressure 137/104 H 138/97 H Blood Pressure Mean 115 110 Pulse Ox 98 98 Oxygen Delivery Method Room Air Room Air [facility] Lab Data Attestation: I reviewed the patient's lab results. Labs: Laboratory Results - last 24 hr 08/11/22 08/11/22 08/11/22 17:06 17:06 17:06 WBC 4.3 L RBC 4.00 L Hgb 11.0 L Hct 35.0 L MCV 87.5 MCH 27.5 MCHC 31.4 L RDW Std Deviation 49.7 H RDW Coeff of Zee 15.7 H Plt Count 256 MPV 9.9 Immature Gran % (Auto) 0.200 Neut % (Auto) 64.1 Lymph % (Auto) 20.6 [place] % (Auto) 10.0 Eos % (Auto) 4.4 Baso % (Auto) 0.7 Absolute Neuts (auto) 2.7 Absolute Lymphs (auto) 0.88 Nucleated RBC % 0 PT 17.3 H INR 1.5 Sodium 138 Potassium 5.1 Chloride 108 H Carbon Dioxide 24.0 Anion Gap 6 BUN 45 H Creatinine 1.33 H Estim Creat Clear Calc 29.70 Est GFR (MDRD) Af Amer 51 L Est GFR (MDRD) Non-Af 42 L BUN/Creatinine Ratio 33.8 H Glucose 169 H Calcium 9.6 Troponin I High Sens 10 B-Natriuretic Peptide 08/11/22 17:06 WBC RBC Hgb Hct MCV MCH MCHC RDW Std Deviation RDW Coeff of Zee Plt Count MPV Immature Gran % (Auto) Neut % (Auto) Lymph % (Auto) [place] % (Auto) Eos % (Auto) Baso % (Auto) Absolute Neuts (auto) Absolute Lymphs (auto) Nucleated RBC % PT INR Sodium Potassium Chloride Carbon Dioxide Anion Gap BUN Creatinine Estim Creat Clear Calc Est GFR (MDRD) Af Amer Est GFR (MDRD) Non-Af BUN/Creatinine Ratio Glucose Calcium Troponin I High Sens B-Natriuretic Peptide 750.3 H Radiography Chest X-Ray - ED: 1 View (Chest x-ray shows no acute cardiopulmonary disease, noinfiltrate, no effusion) and Read by ED Physician Diagnostic Testing: Clinical Impression(s) from Imaging Studies Chest X-Ray 08/11/22 16:10 IMPRESSION: There are no acute findings. Electronically Signed: Evans Goode MD at 16:26 EDT , EKG Initial EKG: Attestation: I personally reviewed and interpreted this EKG as follows: (EKG interpretation. Irregular regular rhythm at 130 beats a minute. Normal axis deviation. No acute ST elevation, no acute ectopy. QTc of 538. Patient has a history of A-fib) Differential Diagnosis Chest pain/SOB: ACS and CHF Differential Diagnosis: Dehydration, CHF, atrial fibrillation, atrial flutter, electrolyte abnormality, diarrhea, pneumonia, Treatment and Re-Evaluation Comments:: Patient was initially given Cathflo to help open up her PICC line. This worked somewhat. Patient had attempts by IV by nursing staff without success. There was a delay in receiving the IV fluids because the PICC line wasflowing slowly. A second order Cathflo was ordered, and they will recheck the PICC line. Patient did have a second IV placed to the right hand. Patient did receive her IV fluids, heart rate improved from the 140s into the 120s. Patientwill be given a second liter of IV fluid along with 1 dose of Lopressor. Patient looks very well, does not want to be admitted to the hospital unless absolutely necessary. If patient's heart rate improves, we will discharge this patient and she will continue home medications. Patient's PICC line is working at this time. 2129 I spoke to hospitalist Dr Delvalle. We are going to attempt to give IV Cardizem bolus 10 mg now, wait 30 minutes and repeat IV Cardizem bolus again if needed. If this works, patient may be disposition. If not, patient will be admitted for Cardizem drip. Patient is still completely asymptomatic, patient reminded me again that she had no symptoms when she came to the ER today. Patient's mouth is dry, that is chronic, patient is drinking water with no difficulty. Patient is aware of this plan right now, nursing staff anesthesiologist for Bed 19 is aware as well 220 initial IV Cardizem 10mg bolus was given, patient still maintaining heart rate in the 130s?140s. Patient will be given a second IV Cardizem 10 mg bolus. We will wait another 20 minutes or so to see if this helps with heart rate, otherwise patient will be admitted to . He has been aware of the patient. If Cardizem drip will be needed, Dr. Delvalle will place the order. Dr. Manzano will place for admission and finish the final disposition. Critical care time 35 minutes exclusive from separate billable procedures that were performed. The following was considered in the determination of critical care but not limited to the level of medical decision making, intensive cardiac and/or respiratory monitoring, frequent vital sign monitoring, evaluation of laboratory studies, evaluation of radiographic studies, oxygen monitoring, and constant monitoring and speaking to family at bedside Critical Care Time Critical care time (excluding procedures): 30-74 minutes and - (Critical care time 35 minutes exclusive from separate billable procedures that were performed.The following was considered in the determination of critical care but not limited to the level of medical decision making, intensive cardiac and/or respiratory monitoring, frequent vital sign monitoring, ) Discharge Plan Triage Chief Complaint: Palpitations Other Complaint: General Illness ED Provider: Monty Mota Dx/Rx/DC Orders Clinical Impression: Dehydration, Occluded PICC line, Atrial fib/flutter, transient, Diarrhea Prescriptions: No Action acetaminophen 325 mg capsule 650 mg PO Q4H PRN (Reason: Pain) cholecalciferol (vitamin D3) 50 mcg (2,000 unit) capsule 50 mcg PO DAILY ferrous sulfate 325 mg (65 mg iron) tablet 325 mg PO DAILY ascorbic acid (vitamin C) [Vitamin C] 500 mg Tablet 500 mg PO DAILY multivitamin Tablet 1 tab PO DAILY amlodipine 10 mg tablet 10 mg PO DAILY vancomycin in dextrose 5 % 1 gram/200 mL Piggyback 1,000 mg IV Q24H 40 Days Qty: 8000 0RF Rx Instructions: stop date 08/23/22 dx: finger osteomyelitis weekly bmp, cbc, esr, and vanc trough. Fax to [phone] routine picc care per protocol ciprofloxacin HCl 500 mg Tablet 500 mg PO BID 10 Days Qty: 20 0RF aspirin 81 mg Tablet,Chewable 81 mg PO BREAKFAST Qty: 0 0RF Prolia 60 mg/mL syringe 60 mg subcut [id number] Qty: 1 1RF glimepiride 4 mg tablet 4 mg PO BID 90 Days Qty: 180 3RF losartan 50 mg tablet 50 mg PO BID Qty: 180 3RF oxybutynin chloride 15 mg tablet extended release 24hr 15 mg PO BID Qty: 180 1RF sertraline [Zoloft] 100 mg tablet 100 mg PO DAILY Qty: 90 0RF metoprolol tartrate 50 mg tablet 50 mg PO BID Qty: 180 1RF simvastatin 20 mg tablet 20 mg PO QHS Qty: 90 3RF metformin 1,000 mg tablet 1,000 mg PO BID Qty: 180 3RF warfarin [Jantoven] 2.5 mg tablet 2.5 mg PO DINNER Qty: 30 0RF Primary Care Provider: Bernie Reagan Referrals: Bernie Reagan MD [Primary Care Provider] - Disposition Disposition: Acute Care Hospital What to do if you have Problems For any increased pain, shortness of breath, bleeding, nausea or vomiting, chestpain, or any unexpected problems, contact your Primary Care Provider. Call [facility] ([phone]) or report to the closest Emergency Room. Call 911 if necessary. 08/11/222216 <Electronically signed by Monty Mota DO> Cosigner Signature (if applicable): CC: Dr. Bernie Reagan MD ~ Signed [facility] Work Phone: [phone] Discharge summary Author Tj Manzano [facility] August 11, 2022 11:42pm Note Date/Time August 11, 2022 4:5 2pm [facility] Medical Records Department [address] [place] [address] Emergency Department Summary 08/11/22 MR#: [id number] Acct: [id number] Name: JOSELINE ELLIS Rep #:[id number] 1 : 1950 72 From: Monty Mota DO PCP: Dr. Bernie Reagan MD Status:A DM IN Location: [facility] [id number] Tj Manzano MD on 08/11/22 at 2342 On reevaluation, patient's heart rate down into the 90s, but it sped up to the 130 range in a relatively short period of time so we started the patient on Cardizem here in the emergency department. Will be admitted to the ICU. Critical care time: 30 minutes total, not including procedure time, including documentation, review of tests, bedside time with the patient, discussing with consultants for admission. 08/11/22 2342<Electronically signed by Tj Manzano MD> Cosigner Signature (if applicable): cc: Dr. Bernie Reagan MD ~* Signed HPI History of Present Illness Chief Complaint: Palpitations Narrative Narrative: Patient is a 72-year-old female who is presenting to the ER today because chief complaint of tachycardia and her left PICC line is clogged as well. Patient lives at home by herself. Patient has a friend at bedside. Patient also had anepisode of diarrhea last night and today. Otherwise patient has no symptoms. Patient does have a history of A-fib. Patient is on Coumadin. Patient was admitted to the hospital 2 or 3 years ago for A-fib complications. Patient currently has no headache, neck pain. No chest pain or shortness of breath. Noabdominal pain, nausea or vomiting. No other acute complaints. Patient has no pain, redness or swelling to her left arm. Patient has no history of PE. Patient was on Eliquis for her A-fib, then she was switched to Coumadin secondary to cost. Patient is compliant with all of her medications. Patient had a home health nurse that was not able to use her PICC line so patient was sent to the ER to help with her PICC line use and tachycardia, PFSH PFSH Medical History Abnormal mammogram of right breast Abnormal mammogram of right breast Abscess of right middle finger Acute kidney injury Afib Alcohol use Anemia Anemia Anxiety Anxiety and depression Arthritis Atrial fibrillation Back pain Bacteremia Breast lump Burn injury of skin of finger Cardiology follow-up encounter Chronic cough COVID-19 vaccine series completed CPAP (continuous positive airway pressure) dependence CVA (cerebral vascular accident) Depression Depression with anxiety Diabetes Dietary restriction DKA (diabetic ketoacidoses) Essential hypertension Finger infection Flu vaccine need Former smoker Health care maintenance High cholesterol History of echocardiogram History of edema History of stress test History of UTI HTN (hypertension) Hyperlipidemia Hypertension Irregular heartbeat Kidney disease retirement (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 MRSA infection 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 without evidence of necrosis Non-rheumatic mitral valve stenosis Nonrheumatic aortic (valve) stenosis Osteoarthritis Osteomyelitis of finger of right hand Osteoporosis Overactive bladder Pancreatitis Paroxysmal atrial fibrillation Post-menopausal Preoperative evaluation to rule out surgical contraindication Sleep apnea Urinary incontinence, overflow Venous insufficiency Vision problems Walker as ambulation aid Weakness Home Medications ferrous sulfate 325 mg (65 mg iron) tablet 325 mg PO DAILY Supplement 01/27/21 [History Last Taken 07/08/22] ascorbic acid (vitamin C) 500 mg tablet (Vitamin C) 500 mg PO DAILY vitamin 08/21/21 [History Last Taken 07/08/22] acetaminophen 325 mg capsule 650 mg PO Q4H PRN Pain 12/02/21 [History Last Taken 07/08/22] cholecalciferol (vitamin D3) 50 mcg (2,000 unit) capsule 50 mcg PO DAILY [id number] [History Last Taken 07/08/22] denosumab 60 mg/mL subcutaneous syringe (Prolia) 60 mg subcut [id number] #1 mL 03/11/22 [Rx Last Taken Unknown] glimepiride 4 mg tablet 4 mg PO BID dm 3 months #180 tabs 06/24/22 [Rx Last Taken 07/09/22] losartan 50 mg tablet 50 mg PO BID bp #180 tabs 06/24/22 [Rx Last Taken 07/09/22] oxybutynin chloride 15 mg tablet,extended release 24 hr 15 mg PO BID bladder #180 tabs 06/24/22 [Rx Last Taken 07/09/22] sertraline 100 mg tablet (Zoloft) 100 mg PO DAILY anxiety #90 tabs 06/24/22 [Rx Last Taken 07/08/22] metoprolol tartrate 50 mg tablet 50 mg PO BID heart #180 tabs 06/28/22 [Rx Last Taken 07/09/22] metformin 1,000 mg tablet 1,000 mg PO BID DM #180 tabs 07/06/22 [Rx Last Taken 07/09/22] simvastatin 20 mg tablet 20 mg PO QHS cholesterol #90 tabs 07/06/22 [Rx Last Taken 07/08/22] amlodipine 10 mg tablet 10 mg PO DAILY BP 07/09/22 [History Last Taken 07/09/22] multivitamin 1 tab PO DAILY SUPPLEMENT 07/09/22 [History Last Taken 07/08/22] ciprofloxacin HCl 500 mg tablet 500 mg PO BID 10 days #20 tabs 07/14/22 [Rx Last Taken Unknown] vancomycin 1 gram/200 mL in dextrose 5 % intravenous piggyback 1,000 mg IV Q24H 40 days #8,000 mL 07/14/22 [Rx Last Taken Unknown] aspirin 81 mg chewable tablet 81 mg PO BREAKFAST #0 tabs 07/15/22 [Rx Last Taken Unknown] warfarin 2.5 mg tablet (Jantoven) 2.5 mg PO DINNER #30 tabs 07/30/22 [Rx Last Taken Unknown] Allergy/AdvReac Type Severity Reaction Status Date / Time fosinopril [From Monopril] Allergy Unknown unknown Verified 08/11/22 15:40 pioglitazone AdvReac Other Verified 08/11/22 15:40 Family History Father Diabetes Hypertension High cholesterol Heart disease Melanoma Surgical History History of back surgery History of carpal tunnel release History of hand surgery History of hysterectomy History of left elbow replacement History of surgical amputation of finger of right hand Hx of colonoscopy S/P hysterectomy S/P ORIF (open reduction internal fixation) fracture Status post surgical amputation of finger of right hand Social History household members: none Smoking Status: Never smoker how long ago did patient quit smokin years ago alcohol intake: current alcohol intake frequency: holidays/special occasions only substance use type: does not use what type of physical activity do you participate in: other details: chantal LOMBARDO ROS ED ROS Narrative REVIEW OF SYSTEMS: Unless otherwise stated in this report the patient's positiveand negative responses for review of systems for constitutional, eyes, ENT, cardiovascular, respiratory, gastrointestinal, neurological, , musculoskeletal, and integument systems and related systems to the presenting problem are either stated in the history of present illness or were not pertinent or were negative for the symptoms and/or complaints related to the presenting medical problem. EXAM Physical Exam Narrative Exam Narrative: Vital signs reviewed and patient is not hypoxic. General: The patient appears well and in no apparent distress. Patient is resting comfortably on cart. Not toxic, lethargic, or listless. Skin: Warm, dry, no pallor noted. There is no rash noted. Patient has no redness, swelling around her left upper extremity. Patient has chronic healing sores to her bilateral lower extremities, and her left anterior nolasco. Head: Normocephalic, atraumatic Eye: Normal conjunctiva, no drainage, EOMI. PERRL. Ears, Nose, Mouth, and Throat: oral mucosa is moist. Nares patent. Mouth withoutvesicles. Ear canals patent. Cardiovascular: Increased irregular regular Rate and Rhythm, no murmurs, gallops, or rubs Respiratory: Patient is in no distress, no accessory muscle use, lungs are clearto auscultation, no wheezing, rales or rhonchi Back: non-tender, no CVA tenderness bilaterally to percussion. NO CTLS midline or paracervicl tenderness to palpation. GI: Soft, no tenderness to palpation, no masses appreciated. No rebound, guarding, or rigidity noted. Musculoskeletal: The patient has full range of motion of all extremities and joints with no difficulty. Patient has no pain to palpation to the posterior aspect of her left upper extremity. Patient's PICC line is intact. No tenderness, redness, or signs of cellulitis around the PICC line. Patient has no motor, no sensory deficits. Neurological: A&O x4, normal speech, no focal neurological deficits. Psychiatric: Cooperative Const Vital Signs: 08/11/22 15:37 08/11/22 15:54 08/11/22 16:02 Temperature 96.6 F L Temperature Source Temporal Pulse Rate 133 H Respiratory Rate 18 Respiratory Effort Normal Non-Labored Blood Pressure 139/88 H Blood Pressure Mean 105 Pulse Ox 97 Oxygen Delivery Method Room Air Room Air 08/11/22 17:36 08/11/22 20:25 08/11/22 21:00 Temperature Temperature Source Pulse Rate 134 H 135 H 135 H Respiratory Rate 23 H 28 H Respiratory Effort Blood Pressure 137/104 H 138/97 H Blood Pressure Mean 115 110 Pulse Ox 98 98 Oxygen Delivery Method Room Air Room Air [facility] Lab Data Attestation: I reviewed the patient's lab results. Labs: Laboratory Results - last 24 hr 08/11/22 08/11/22 08/11/22 17:06 17:06 17:06 WBC 4.3 L RBC 4.00 L Hgb 11.0 L Hct 35.0 L MCV 87.5 MCH 27.5 MCHC 31.4 L RDW Std Deviation 49.7 H RDW Coeff of Zee 15.7 H Plt Count 256 MPV 9.9 Immature Gran % (Auto) 0.200 Neut % (Auto) 64.1 Lymph % (Auto) 20.6 [place] % (Auto) 10.0 Eos % (Auto) 4.4 Baso % (Auto) 0.7 Absolute Neuts (auto) 2.7 Absolute Lymphs (auto) 0.88 Nucleated RBC % 0 PT 17.3 H INR 1.5 Sodium 138 Potassium 5.1 Chloride 108 H Carbon Dioxide 24.0 Anion Gap 6 BUN 45 H Creatinine 1.33 H Estim Creat Clear Calc 29.70 Est GFR (MDRD) Af Amer 51 L Est GFR (MDRD) Non-Af 42 L BUN/Creatinine Ratio 33.8 H Glucose 169 H Calcium 9.6 Troponin I High Sens 10 B-Natriuretic Peptide 08/11/22 17:06 WBC RBC Hgb Hct MCV MCH MCHC RDW Std Deviation RDW Coeff of Zee Plt Count MPV Immature Gran % (Auto) Neut % (Auto) Lymph % (Auto) [place] % (Auto) Eos % (Auto) Baso % (Auto) Absolute Neuts (auto) Absolute Lymphs (auto) Nucleated RBC % PT INR Sodium Potassium Chloride Carbon Dioxide Anion Gap BUN Creatinine Estim Creat Clear Calc Est GFR (MDRD) Af Amer Est GFR (MDRD) Non-Af BUN/Creatinine Ratio Glucose Calcium Troponin I High Sens B-Natriuretic Peptide 750.3 H Radiography Chest X-Ray - ED: 1 View (Chest x-ray shows no acute cardiopulmonary disease, noinfiltrate, no effusion) and Read by ED Physician Diagnostic Testing: Clinical Impression(s) from Imaging Studies Chest X-Ray 08/11/22 16:10 IMPRESSION: There are no acute findings. Electronically Signed: Evans Goode MD at 16:26 EDT Reading Location ID and State: [facility] / [place] , Service support , EKG Initial EKG: Attestation: I personally reviewed and interpreted this EKG as follows: (EKG interpretation. Irregular regular rhythm at 130 beats a minute. Normal axis deviation. No acute ST elevation, no acute ectopy. QTc of 538. Patient has a history of A-fib) Differential Diagnosis Chest pain/SOB: ACS and CHF Differential Diagnosis: Dehydration, CHF, atrial fibrillation, atrial flutter, electrolyte abnormality, diarrhea, pneumonia, Treatment and Re-Evaluation Comments:: Patient was initially given Cathflo to help open up her PICC line. This worked somewhat. Patient had attempts by IV by nursing staff without success. There was a delay in receiving the IV fluids because the PICC line wasflowing slowly. A second order Cathflo was ordered, and they will recheck the PICC line. Patient did have a second IV placed to the right hand. Patient did receive her IV fluids, heart rate improved from the 140s into the 120s. Patientwill be given a second liter of IV fluid along with 1 dose of Lopressor. Patient looks very well, does not want to be admitted to the hospital unless absolutely necessary. If patient's heart rate improves, we will discharge this patient and she will continue home medications. Patient's PICC line is working at this time. 2129 I spoke to hospitalist Dr Delvalle. We are going to attempt to give IV Cardizem bolus 10 mg now, wait 30 minutes and repeat IV Cardizem bolus again if needed. If this works, patient may be disposition. If not, patient will be admitted for Cardizem drip. Patient is still completely asymptomatic, patient reminded me again that she had no symptoms when she came to the ER today. Patient's mouth is dry, that is chronic, patient is drinking water with no difficulty. Patient is aware of this plan right now, nursing staff anesthesiologist for Bed 19 is aware as well 2204 initial IV Cardizem 10mg bolus was given, patient still maintaining heart rate in the 130s?140s. Patient will be given a second IV Cardizem 10 mg bolus. We will wait another 20 minutes or so to see if this helps with heart rate, otherwise patient will be admitted to . He has been aware of the patient. If Cardizem drip will be needed, Dr. Delvalle will place the order. Dr. Manzano will place for admission and finish the final disposition. Critical care time 35 minutes exclusive from separate billable procedures that were performed. The following was considered in the determination of critical care but not limited to the level of medical decision making, intensive cardiac and/or respiratory monitoring, frequent vital sign monitoring, evaluation of laboratory studies, evaluation of radiographic studies, oxygen monitoring, and constant monitoring and speaking to family at bedside Critical Care Time Critical care time (excluding procedures): 30-74 minutes and - (Critical care time 35 minutes exclusive from separate billable procedures that were performed.The following was considered in the determination of critical care but not limited to the level of medical decision making, intensive cardiac and/or respiratory monitoring, frequent vital sign monitoring, ) Discharge Plan Triage Chief Complaint: Palpitations Other Complaint: General Illness ED Provider: Monty Mota Dx/Rx/DC Orders Clinical Impression: Dehydration, Occluded PICC line, Atrial fib/flutter, transient, Diarrhea Prescriptions: No Action acetaminophen 325 mg capsule 650 mg PO Q4H PRN (Reason: Pain) cholecalciferol (vitamin D3) 50 mcg (2,000 unit) capsule 50 mcg PO DAILY ferrous sulfate 325 mg (65 mg iron) tablet 325 mg PO DAILY ascorbic acid (vitamin C) [Vitamin C] 500 mg Tablet 500 mg PO DAILY multivitamin Tablet 1 tab PO DAILY amlodipine 10 mg tablet 10 mg PO DAILY vancomycin in dextrose 5 % 1 gram/200 mL Piggyback 1,000 mg IV Q24H 40 Days Qty: 8000 0RF Rx Instructions: stop date 08/23/22 dx: finger osteomyelitis weekly bmp, cbc, esr, and vanc trough. Fax to [phone] routine picc care per protocol ciprofloxacin HCl 500 mg Tablet 500 mg PO BID 10 Days Qty: 20 0RF aspirin 81 mg Tablet,Chewable 81 mg PO BREAKFAST Qty: 0 0RF Prolia 60 mg/mL syringe 60 mg subcut [id number] Qty: 1 1RF glimepiride 4 mg tablet 4 mg PO BID 90 Days Qty: 180 3RF losartan 50 mg tablet 50 mg PO BID Qty: 180 3RF oxybutynin chloride 15 mg tablet extended release 24hr 15 mg PO BID Qty: 180 1RF sertraline [Zoloft] 100 mg tablet 100 mg PO DAILY Qty: 90 0RF metoprolol tartrate 50 mg tablet 50 mg PO BID Qty: 180 1RF simvastatin 20 mg tablet 20 mg PO QHS Qty: 90 3RF metformin 1,000 mg tablet 1,000 mg PO BID Qty: 180 3RF warfarin [Jantoven] 2.5 mg tablet 2.5 mg PO DINNER Qty: 30 0RF Primary Care Provider: Bernie Reagan Referrals: Bernie Reagan MD [Primary Care Provider] - Disposition Disposition: Acute Care Hospital What to do if you have Problems For any increased pain, shortness of breath, bleeding, nausea or vomiting, chestpain, or any unexpected problems, contact your Primary Care Provider. Call [facility] ([phone]) or report to the closest Emergency Room. Call 911 if necessary. 08/11/222216 <Electronically signed by Monty Mota DO> Cosigner Signature (if applicable): CC: Dr. Bernie Reagan MD ~ Signed [facility] Work Phone: 1(275) 421-516003-20-2023 Progress note Author Génesis Patel [facility] August 02, 2022 3:00pm Note Date/Time August 02, 2022 2:5 6pm [facility] [address] [place] [id number] Progress Note - Wound Care 08/02/22 1456 MR#: [id number] Acct: [id number] Name: JOSELINE ELLIS Rep #:[id number] : 1950 72 From: Génesis Gabriel LEAD DESIGNER LEAD DESIGNER-C PCP: Dr. Bernie Reagan MD Status:R EG RCR Location: History of Present Illness Date of Service: 08/02/22 Chief Complaint: Right long finger ulcer History of Wound: This 72-year-old white female was seen in the emergency room at [facility] for redness and drainage of a right third finger amputation stump site and positive MRSA blood cultures. She was seen in the emergency room 3 days prior and sent home on Keflex but the wound culture came back positive for MRSA and the prescription was changed from Keflex to Bactrim, the morning she was seen in the ER this admission, her blood culture was positive for Staph aureus and she was called to the ED for evaluation. Blood work showed a normal white blood cell count, patient's creatinine was elevated at 2.33 and BUN was 68 patient's blood sugar was 167. 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 Patient was admitted to PCU for anonhealing amputation stump MRSA ulcer with exposed bone suspicious for osteomyelitis and started on IV antibiotics. She has diabetes mellitus and is atrisk for worsening infection that may extend to other parts of the hand which may lead to stiffness and difficulty with range of motion. Surgery 07/12/22 - Surgical preparation right long finger amputation stump ulcer with incision and drainage and excisional debridement MRSA abscess and partial ostectomy middle phalanx for osteomyelitis. Operative tissue cultures positive for Enterobacter cloacae complex and MRSA. Operative bone cultures positive for MRSA and MRSE. She was discharged home on 07/15/22 with a PICC line and IV Vancomycin and oral Cipro. She was seen by ID while hospitalized and is to follow up with him in 2 weeks. She has home health and friends to help with the IV antibiotics and dressing changes. Today she denies fever, chills, nausea or vomiting. Progress of Wound: Right long finger ulcer is improving. There is some depth on the radial aspect of the ulcer but is decreasing. She is tolerating dressing changes well. Objective Data Objective Data Vital Signs: Vital Signs Temp Pulse Resp BP O2 Del Method 98.9 F 64 16 183/89 H Room Air 08/02/22 14:34 08/02/22 14:34 08/02/22 14:34 08/02/22 14:34 08/02/22 14:34 Oxygen Delivery Method Room Air Weight: 185 lb Body Mass Index (BMI) 34.9 Charges/Coding Procedures Integumentary 111xxx-113xx: 15982 Global Visit Debridement Note Debridement Note Wound debrided: long finger stump ulcer Laterality: Right Type of Debridement: Excisional debridement Anesthesia Used: 5% Lidocaine Gel Depth: Down to and including healthy tissue, in the subcutaneous layer and to muscle Percentage of wound debrided: 100 Instrument Used: 3mm curette Tissue Removed: Devitalized tissue and slough into the muscle/tendon Severity: Fat Layer Exposed Amount of bleeding with debridement: Mild Bleeding Controlled with: Pressure and Compression and gauze Patient tolerated procedure: Patient tolerated procedure well Post-Debridement Measurements and Additional Note: Post-Debridement Measurements/Treatment KATELYNN - Nurse 1 - General Ulcer Assessment Start: 07/19/22 13:32 Freq: Status: Active Protocol: DENG Activity Type Activity Date Activity User E-sign Co-sign Detail Recorded Client Recorded Date Recorded By Document 07/19/22 13:32 [facility] [id number] 07/19/22 13:39 BMF Document 07/26/22 15:07 DL [id number] 07/26/22 15:13 DL Edit Result 07/26/22 15:07 DL (1) [id number] 07/26/22 15:18 DL Document 08/02/22 14:34 BMF [id number] 08/02/22 14:37 BMF (1) Finger Stick Blood Sugar(mg/dl) (if => 147 indicated): Blood Sugar => Stated by Patient Temperature (97.8 F-99.1 F) => 96.9 F L Temperature Source => Temporal Pulse Rate (60-100) => 77 Pulse Location => Monitor Respiratory Rate (12-18) => 20 H Respiratory rate source => Observation Blood Pressure (90/60-120/80) => 168/73 H Blood Pressure Mean (mm Hg) => 104 Source => Monitor 07/19/22 07/26/22 08/02/22 13:32 15:07 14:34 WC - Today's Visit Information Type of service Initial Visit Follow-up Visit Follow-up Visit (Physician/PANTOGRAPH WATCHER (Physician/PANTOGRAPH WATCHER ) ) Arrival Mode Ambulatory, Ambulatory, Ambulatory, Walker Walker Walker Transfer Assistance None None None Patient Identification Verified (Name & Yes Yes Yes ) Patient Requires Transmission-Based No No No Precautions Finger Stick Blood Sugar(mg/dl) (if 147 indicated): Blood Sugar Stated by Patient Height and Weight Height 5 ft 1 in Weight 185 lb Weight in Pounds 185.0 lbs Weight Measurement Method Stated by Patient Body Mass Index (BMI) 34.9 34.9 34.9 BMI Classification Obese Obese Obese BSA - Florina 1.83 Vital Signs Temperature (97.8 F-99.1 F) 97.2 F L 96.9 F L 98.9 F Temperature Source Temporal Temporal Temporal Pulse Rate (60-100) 16 L 77 64 Pulse Location Monitor Monitor Monitor Respiratory Rate (12-18) 16 20 H 16 Respiratory rate source Observation Observation Observation Oxygen Delivery Method Room Air Room Air Blood Pressure (90/60-120/80) 154/67 H 168/73 H 183/89 H Blood Pressure Mean (mm Hg) 96 104 120 Source Monitor Monitor Monitor Position Sitting Sitting Blood Pressure Location Right Arm Left Arm History Since Last Visit- (Skip if this is Patient's initial visit) Have you changed medications since your No No last visit? Any new allergies or adverse reactions No No Had a fall/change in ADL's that may No increase risk of falls Signs or symptoms of abuse and/or No No neglect since last visit Have you been in the hospital since your No No last visit? Has dressing in place as prescribed Yes Yes Has compression in place as prescribed N/A N/A Has offloadiing in place as prescribed N/A N/A Experienced any changes in pain level or No No management Left Footwear Regular Shoe Regular Shoe Right Footwear Regular Shoe Regular Shoe Pain Scale: 0-10 Numeric Is Patient Pain Free? Yes Yes Yes Communication Assessment Preferred language Tanz[place] 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 Required No Able to Read Yes Able to Write No: has difficulty Communication Tools None Right Hearing Abillity Hard of Hearing Left Hearing Abillity Hard of Hearing Visual Assistive Devices Glasses Teaching Assessment Preferences Verbal,Written, Audio/Visual, Demonstration Barriers to Learning Hearing Impairment Readiness To Learn Excellent Willingness to Engage in Self Management High Activies Readiness to Engage in Self Management High Activities Anxiety Level Calm Cooperation Cooperative Perception Coherent Interest in Health Problem Asks Questions Education Importance Acknowledges Need Does Patient Smoke tobacco or other No substances Smoking Status Never smoker Is Patient Diabetic Yes Functional Assessment Recent Decline in Ability to Perform Denies Any Declines Culture/Episcopal/Camera Maker Cultural/Episcopal Needs that may affect No Treatment Plan Teaching: Wound Center *Welcome to the Wound Center -Person Taught Patient,Family -Teaching Method Discussion -Response to teaching Verbalize understanding Welcome to the Wound Care Center Maldivian WC - Nurse 1 - General Ulcer Measurement Start: 07/19/22 13:32 Freq: Status: Active Protocol: Activity Type Activity Date Activity User E-sign Co-sign Detail Recorded Client Recorded Date Recorded By Document 07/19/22 13:32 BMF [id number] 07/19/22 13:39 BMF Document 07/26/22 15:07 DL [id number] 07/26/22 15:13 DL Edit Result 07/26/22 15:07 DL (1) [id number] 07/26/22 15:18 DL Document 08/02/22 14:34 BMF [id number] 08/02/22 14:37 BMF (1) #1- R 3RD FINGER (POST OP) - Current Size (cm) - Length => 0.9 - Current Size (cm) - Width => 0.6 - Current Size (cm) - Depth => 0.1 - Total Square Cm => 0.54 07/19/22 07/26/22 08/02/22 13:32 15:07 14:34 Wound Center Nurse 1 #1- R 3RD FINGER (POST OP) -Combined with other wound No No -Current Size (cm) - Length 1 0.9 0.6 -Current Size (cm) - Width 1 0.6 0.5 -Current Size (cm) - Depth 0.1 0.1 0.1 -Total Square Cm 1 0.54 0.30 -Date of Last Picture (Recall this 07/19/22 08/02/22 field) -Photo Taken Yes No Yes -Epithelialization None Present Small 1-33% -Tunneling No No -Undermining/Tunneling No No -Circular Undermining No No -Exudate Amt Small Small Small -Exudate Type Serosanguineous Serosanguineous -Wound Margin Distinct, Distinct, Distinct, Outline Outline Outline Attached Attached Attached -Granulation Amt Large (67-100%) Small (1-33%) Large (67-100%) -Granulation Quality [place] Red -Slough/Fibrin Yes No -Necrosis Amt Small (1-33%) Small (1-33%) None Present (0 %) -Necrotic Tissue Type Adherent Slough Adherent Slough -Structure Exposed N/A -Texture (Jessica-wound Skin Appearance) Assessed, Scarring Assessed, Scarring Scarring -Moisture (Jessica-wound Skin Appearance) Assessed,Dry/ No Abnormality Assessed Scaly -Color (Jessica-wound Skin Appearance) Assessed No Abnormality Assessed -Temperature (Jessica-wound Skin No Abnormality No Abnormality No Abnormality Appearance) (Pt Warm) (Pt Warm) (Pt Warm) -Tenderness on Palpation (Jessica-wound No No No Skin Appearance) -Ulcer Cleansing Rinsed/ Rinsed/ Rinsed/ Irrigated with Irrigated with Irrigated with Saline Saline Saline -Foul Odor after Cleansing No No No -Anesthetic Used 5% Lidocaine 5% Lidocaine 5% Lidocaine Gel Gel Gel WC - Nurse 2 - General Ulcer CM Notes Start: 07/19/22 13:32 Freq: Status: Active Protocol: Activity Type Activity Date Activity User E-sign Co-sign Detail Recorded Client Recorded Date Recorded By Document 07/19/22 14:16 [id number] 07/19/22 14:21 Document 07/26/22 15:29 [id number] 07/26/22 15:33 Document 08/02/22 14:49 [id number] 08/02/22 14:50 07/19/22 07/26/22 08/02/22 14:16 15:29 14:49 Wound Center Nurse 2 #1- R 3RD FINGER (POST OP) -Time 14:16 15:30 14:49 -Correct Patient Yes Yes Yes -Correct Side, Site, Position Yes Yes Yes -Correct Procedure Yes Yes Yes -Procedure Performed Yes Yes Yes -Type of Procedure Debridement Debridement Debridement -Clinical Debridement Muscle / Fascia Muscle / Fascia Muscle / Fascia -Tissue Removed Muscle Muscle,Fascia Muscle,Fascia -Post Debridement (cm) - Length 1.4 0.7 0.6 -Post Debridement (cm) - Width 1.3 0.7 0.7 -Post Debridement (cm) - Depth 0.1 0.4 0.2 -Total Square (Post) (cm) 1.82 0.49 0.42 -Area of Debridement (cm) - Length 1.4 0.7 0.6 -Area of Debridement (cm) - Width 1.3 0.7 0.7 -Total Square (Area) (cm) 1.82 0.49 0.42 -Tunneling No No No -Undermining/Tunneling No No No -Circular Undermining No No No -Wound/Ulcer Outcome Not Healed Not Healed Not Healed -Ulcer Cleansing Rinsed/ Rinsed/ Rinsed/ Irrigated with Irrigated with Irrigated with Saline Saline Saline -Foul Odor after Cleansing No No No -Bioengineered Tissue No No No -Bleeding Controlled with Pressure Pressure Pressure -Treatment Response Procedure Procedure Procedure Tolerated Well Tolerated Well Tolerated Well -Offloading No No No -Debridement - Subq, 1st 20sq cm No No -Debridement - Muscle / Fascia, 1st Yes Yes Yes 20sq cm Pain Scale: 0-10 Numeric Is Patient Pain Free? Yes Yes Yes WC - Nurse 3 - General Ulcer D/C NN Start: 07/19/22 13:32 Freq: Status: Active Protocol: Activity Type Activity Date Activity User E-sign Co-sign Detail Recorded Client Recorded Date Recorded By Document 07/19/22 14:31 [facility] [id number] 07/19/22 14:31 [facility] Document 07/26/22 15:43 DL [id number] 07/26/22 15:44 DL 07/19/22 07/26/22 14:31 15:43 Wound Care Center Nurse 3 #1- R 3RD FINGER (POST OP) -Ulcer Cleansing Rinsed/ Rinsed/ Irrigated with Irrigated with Saline Saline -Foul Odor after Cleansing No No -Primary Dressing Applied Silvercel Silvercel -Other Dressing TOPPED W/ SPANDAGE/COBAN; DRSG PER [place] SALES RECRUITMENT SPECIALIST -Primary Dressing Covered/Secured with Secured with Dry Gauze & Tape Roll Gauze, Secured with Tape -Silvercel 1 1 Treatment Response Procedure Procedure Tolerated Well Tolerated Well Pain Scale: 0-10 Numeric Is Patient Pain Free? Yes Yes WC - Visit Discharge Discharge Condition Stable Stable Ambulatory Status Ambulatory Ambulatory, Walker Transportation Private Auto Private Auto Accompanied by FRIEND Facility Type Home Health Home Health Orders Sent Yes Assessment/Plan Assessment/Plan (1) Skin ulcer of finger: CODE(S): L98.499 - Non-pressure chronic ulcer of skin of other sites with unspecified severity (2) Osteomyelitis of finger of right hand: CODE(S): M86.9 - Osteomyelitis, unspecified (3) retirement (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: CODE(S): Z79.01 - retirement (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 (4) MRSA infection: CODE(S): A49.02 - Methicillin resistant Staphylococcus aureus infection, unspecified site (5) Diabetes: CODE(S): E11.9 - Type 2 diabetes mellitus without complications (6) Type II diabetes mellitus: CODE(S): E11.9 - Type 2 diabetes mellitus without complications PLAN: Plan Patient evaluated at the wound healing center today. Wound care - Moistened silvercel topped with gauze changed 3 times a week and PRN. She does not have someone who is able to change it daily. May use spandage to secure to finger. If need to use bandaid, that is ok. Keep hand elevated. She is receiving IV Vancomycin and oral Cipro which she is tolerating well. Sheis being seen by ID. Follow up two weeks since I will be out of town next week. 08/02/22 1500 <Electronically signed by Génesis Patel LEAD DESIGNER LEAD DESIGNER-C> Cosigner Signature (if applicable): CC: ~ Signed [facility] Work Phone: 1(498) 389-495403-20-2023 Progress note Author Génesis Patel [facility] August 02, 2022 2:56pm Note Date/Time July 26, 2022 3:4 2pm [facility] [address] [place] [address] Progress Note - Wound Care 07/26/22 1542 MR#: [id number] Acct: [id number] Name: JOSELINE ELLIS Rep #:[id number] : 1950 72 From: Génesis guerrero NP LEAD DESIGNER-C PCP: Dr. Bernie Reagan MD Status:R EG RCR Location: WC ADDENDUM by LEAD DESIGNER-C Génesis Patel on 08/02/22 at 1456 Addendum Debridement was into the muscle. 08/02/22 1456<Electronically signed by Génesis Patel LEAD DESIGNER LEAD DESIGNER-C> Cosigner Signature (if applicable): cc: ~* Signed History of Present Illness Date of Service: 07/26/22 Chief Complaint: Right long finger ulcer History of Wound: This 72-year-old white female was seen in the emergency room at [facility] for redness and drainage of a right third finger amputation stump site and positive MRSA blood cultures. She was seen in the emergency room 3 days prior and sent home on Keflex but the wound culture came back positive for MRSA and the prescription was changed from Keflex to Bactrim, the morning she was seen in the ER this admission, her blood culture was positive for Staph aureus and she was called to the ED for evaluation. Blood work showed a normal white blood cell count, patient's creatinine was elevated at 2.33 and BUN was 68 patient's blood sugar was 167. 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 Patient was admitted to PCU for anonhealing amputation stump MRSA ulcer with exposed bone suspicious for osteomyelitis and started on IV antibiotics. She has diabetes mellitus and is at risk for worsening infection that may extend to other parts of the hand whichmay lead to stiffness and difficulty with range of motion. Surgery 07/12/22 - Surgical preparation right long finger amputation stump ulcer with incision and drainage and excisional debridement MRSA abscess and partial ostectomy middle phalanx for osteomyelitis. Operative tissue cultures positive for Enterobacter cloacae complex and MRSA. Operative bone cultures positive for MRSA and MRSE. She was discharged home on 07/15/22 with a PICC line and IV Vancomycin and oral Cipro. She was seen by ID while hospitalized and is to follow up with him in 2 weeks. She has home health and friends to help with the IV antibiotics and dressing changes. Today she denies fever, chills, nausea or vomiting. Progress of Wound: Right long finger ulcer is improving. There is some depth on the radial aspect of the ulcer. The bone appears to be covered. She is tolerating dressing changes well. Objective Data Objective Data Vital Signs: Vital Signs Temp Pulse Resp BP O2 Del Method 96.9 F L 77 20 H 168/73 H Room Air 07/26/22 15:07 07/26/22 15:07 07/26/22 15:07 07/26/22 15:07 07/19/22 13:32 Oxygen Delivery Method Room Air Weight: 185 lb Body Mass Index (BMI) 34.9 Charges/Coding Procedures Integumentary 111xxx-113xx: 04786 Global Visit Debridement Note Debridement Note Wound debrided: long finger stump ulcer Laterality: Right Type of Debridement: Excisional debridement Anesthesia Used: 5% Lidocaine Gel Depth: Down to and including healthy tissue and in the subcutaneous layer Percentage of wound debrided: 100 Instrument Used: 3mm curette Tissue Removed: Devitalized tissue and slough Severity: Fat Layer Exposed Amount of bleeding with debridement: Mild Bleeding Controlled with: Pressure and Compression and gauze Patient tolerated procedure: Patient tolerated procedure well Post-Debridement Measurements and Additional Note: Post-Debridement Measurements/Treatment KATELYNN - Nurse 1 - General Ulcer Assessment Start: 07/19/22 13:32 Freq: Status: Active Protocol: DENG Activity Type Activity Date Activity User E-sign Co-sign Detail Recorded Client Recorded Date Recorded By Document 07/19/22 13:32 BMF [id number] 07/19/22 13:39 BMF Document 07/26/22 15:07 DL [id number] 07/26/22 15:13 DL Edit Result 07/26/22 15:07 DL (1) [id number] 07/26/22 15:18 DL (1) Finger Stick Blood Sugar(mg/dl) (if => 147 indicated): Blood Sugar => Stated by Patient Temperature (97.8 F-99.1 F) => 96.9 F L Temperature Source => Temporal Pulse Rate (60-100) => 77 Pulse Location => Monitor Respiratory Rate (12-18) => 20 H Respiratory rate source => Observation Blood Pressure (90/60-120/80) => 168/73 H Blood Pressure Mean (mm Hg) => 104 Source => Monitor 07/19/22 07/26/22 13:32 15:07 WC - Today's Visit Information Type of service Initial Visit Follow-up Visit (Physician/PANTOGRAPH WATCHER ) Arrival Mode Ambulatory, Ambulatory, Walker Walker Transfer Assistance None None Patient Identification Verified (Name & Yes Yes ) Patient Requires Transmission-Based No No Precautions Finger Stick Blood Sugar(mg/dl) (if 147 indicated): Blood Sugar Stated by Patient Height and Weight Height 5 ft 1 in Weight 185 lb Weight in Pounds 185.0 lbs Weight Measurement Method Stated by Patient Body Mass Index (BMI) 34.9 34.9 BMI Classification Obese Obese BSA - Florina 1.83 Vital Signs Temperature (97.8 F-99.1 F) 97.2 F L 96.9 F L Temperature Source Temporal Temporal Pulse Rate (60-100) 16 L 77 Pulse Location Monitor Monitor Respiratory Rate (12-18) 16 20 H Respiratory rate source Observation Observation Oxygen Delivery Method Room Air Blood Pressure (90/60-120/80) 154/67 H 168/73 H Blood Pressure Mean (mm Hg) 96 104 Source Monitor Monitor Position Sitting Blood Pressure Location Right Arm History Since Last Visit- (Skip if this is Patient's initial visit) Have you changed medications since your No last visit? Any new allergies or adverse reactions No Had a fall/change in ADL's that may No increase risk of falls Signs or symptoms of abuse and/or No neglect since last visit Have you been in the hospital since your No last visit? Has dressing in place as prescribed Yes Has compression in place as prescribed N/A Has offloadiing in place as prescribed N/A Experienced any changes in pain level or No management Left Footwear Regular Shoe Right Footwear Regular Shoe Pain Scale: 0-10 Numeric Is Patient Pain Free? Yes Yes Communication Assessment Preferred language Tanzanian 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 Required No Able to Read Yes Able to Write No: has difficulty Communication Tools None Right Hearing Abillity Hard of Hearing Left Hearing Abillity Hard of Hearing Visual Assistive Devices Glasses Teaching Assessment Preferences Verbal,Written, Audio/Visual, Demonstration Barriers to Learning Hearing Impairment Readiness To Learn Excellent Willingness to Engage in Self Management High Activies Readiness to Engage in Self Management High Activities Anxiety Level Calm Cooperation Cooperative Perception Coherent Interest in Health Problem Asks Questions Education Importance Acknowledges Need Does Patient Smoke tobacco or other No substances Smoking Status Never smoker Is Patient Diabetic Yes Functional Assessment Recent Decline in Ability to Perform Denies Any Declines Culture/Episcopal/Camera Maker Cultural/Episcopal Needs that may affect No Treatment Plan Teaching: Wound Center *Welcome to the Wound Center -Person Taught Patient,Family -Teaching Method Discussion -Response to teaching Verbalize understanding Welcome to the Wound Care Center English PACE - Nurse 1 - General Ulcer Measurement Start: 07/19/22 13:32 Freq: Status: Active Protocol: Activity Type Activity Date Activity User E-sign Co-sign Detail Recorded Client Recorded Date Recorded By Document 07/19/22 13:32 [facility] [id number] 07/19/22 13:39 BM Document 07/26/22 15:07 DL [id number] 07/26/22 15:13 DL Edit Result 07/26/22 15:07 DL (1) [id number] 07/26/22 15:18 DL (1) #1- R 3RD FINGER (POST OP) - Current Size (cm) - Length => 0.9 - Current Size (cm) - Width => 0.6 - Current Size (cm) - Depth => 0.1 - Total Square Cm => 0.54 07/19/22 07/26/22 13:32 15:07 Wound Center Nurse 1 #1- R 3RD FINGER (POST OP) -Combined with other wound No -Current Size (cm) - Length 1 0.9 -Current Size (cm) - Width 1 0.6 -Current Size (cm) - Depth 0.1 0.1 -Total Square Cm 1 0.54 -Date of Last Picture (Recall this 07/19/22 field) -Photo Taken Yes No -Epithelialization None Present -Tunneling No -Undermining/Tunneling No -Circular Undermining No -Exudate Amt Small Small -Exudate Type Serosanguineous -Wound Margin Distinct, Distinct, Outline Outline Attached Attached -Granulation Amt Large (67-100%) Small (1-33%) -Granulation Quality [place] -Slough/Fibrin Yes -Necrosis Amt Small (1-33%) Small (1-33%) -Necrotic Tissue Type Adherent Slough Adherent Slough -Structure Exposed N/A -Texture (Jessica-wound Skin Appearance) Assessed, Scarring Scarring -Moisture (Jessica-wound Skin Appearance) Assessed,Dry/ No Abnormality Scaly -Color (Jessica-wound Skin Appearance) Assessed No Abnormality -Temperature (Jessica-wound Skin No Abnormality No Abnormality Appearance) (Pt Warm) (Pt Warm) -Tenderness on Palpation (Jessica-wound No No Skin Appearance) -Ulcer Cleansing Rinsed/ Rinsed/ Irrigated with Irrigated with Saline Saline -Foul Odor after Cleansing No No -Anesthetic Used 5% Lidocaine 5% Lidocaine Gel Gel WC - Nurse 2 - General Ulcer CM Notes Start: 07/19/22 13:32 Freq: Status: Active Protocol: Activity Type Activity Date Activity User E-sign Co-sign Detail Recorded Client Recorded Date Recorded By Document 07/19/22 14:16 [id number] 07/19/22 14:21 Document 07/26/22 15:29 [id number] 07/26/22 15:33 07/19/22 07/26/22 14:16 15:29 Wound Center Nurse 2 #1- R 3RD FINGER (POST OP) -Time 14:16 15:30 -Correct Patient Yes Yes -Correct Side, Site, Position Yes Yes -Correct Procedure Yes Yes -Procedure Performed Yes Yes -Type of Procedure Debridement Debridement -Clinical Debridement Muscle / Fascia Muscle / Fascia -Tissue Removed Muscle Muscle,Fascia -Post Debridement (cm) - Length 1.4 0.7 -Post Debridement (cm) - Width 1.3 0.7 -Post Debridement (cm) - Depth 0.1 0.4 -Total Square (Post) (cm) 1.82 0.49 -Area of Debridement (cm) - Length 1.4 0.7 -Area of Debridement (cm) - Width 1.3 0.7 -Total Square (Area) (cm) 1.82 0.49 -Tunneling No No -Undermining/Tunneling No No -Circular Undermining No No -Wound/Ulcer Outcome Not Healed Not Healed -Ulcer Cleansing Rinsed/ Rinsed/ Irrigated with Irrigated with Saline Saline -Foul Odor after Cleansing No No -Bioengineered Tissue No No -Bleeding Controlled with Pressure Pressure -Treatment Response Procedure Procedure Tolerated Well Tolerated Well -Offloading No No -Debridement - Subq, 1st 20sq cm No -Debridement - Muscle / Fascia, 1st Yes Yes 20sq cm Pain Scale: 0-10 Numeric Is Patient Pain Free? Yes Yes - Nurse 3 - General Ulcer D/C NN Start: 07/19/22 13:32 Freq: Status: Active Protocol: Activity Type Activity Date Activity User E-sign Co-sign Detail Recorded Client Recorded Date Recorded By Document 07/19/22 14:31 [facility] [id number] 07/19/22 14:31 [facility] 07/19/22 14:31 Wound Care Center Nurse 3 #1- R 3RD FINGER (POST OP) -Ulcer Cleansing Rinsed/ Irrigated with Saline -Foul Odor after Cleansing No -Primary Dressing Applied Silvercel -Other Dressing TOPPED W/ SPANDAGE/COBAN; DRSG PER [place] SALES RECRUITMENT SPECIALIST -Primary Dressing Covered/Secured with Secured with Tape -Silvercel 1 Treatment Response Procedure Tolerated Well Pain Scale: 0-10 Numeric Is Patient Pain Free? Yes - Visit Discharge Discharge Condition Stable Ambulatory Status Ambulatory Transportation Private Auto Accompanied by FRIEND Facility Type Home Health Assessment/Plan Assessment/Plan (1) Skin ulcer of finger: CODE(S): L98.499 - Non-pressure chronic ulcer of skin of other sites with unspecified severity (2) Osteomyelitis of finger of right hand: CODE(S): M86.9 - Osteomyelitis, unspecified (3) 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: CODE(S): Z79.01 - 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 (4) MRSA infection: CODE(S): A49.02 - Methicillin resistant Staphylococcus aureus infection, unspecified site (5) Diabetes: CODE(S): E11.9 - Type 2 diabetes mellitus without complications (6) Type II diabetes mellitus: CODE(S): E11.9 - Type 2 diabetes mellitus without complications PLAN: Plan Patient evaluated at the wound healing center today. Wound care - Moistened silvercel topped with gauze changed 3 times a week and PRN. She does not have someone who is able to change it daily. May use spandage to secure to finger. If need to use bandaid, that is ok. Keep hand elevated. She is receiving IV Vancomycin and oral Cipro. She is being seen by ID. Follow up one week. 08/01/222132 <Electronically signed by Génesis Patel NP LEAD DESIGNER-C> Cosigner Signature (if applicable): CC: ~ Signed [facility] Work Phone: 1(595) 538-721603-12-2023 History and physical note Author Génesis Patel [facility] July 25, 2022 6:37pm Note Date/Time July 19, 2022 3:42 pm [facility] [address] [place] [id number] H&P Exam - Wound Care 07/19/22 1541 MR#: [id number] Acct: [id number] Name: JOSELINE ELLIS Rep #:[id number] 2 : 1950 72 From: Géensis Gabriel STACY LEAD DESIGNER-C PCP: Dr. Bernie Reagan MD Status:R [facility] Location: History of Present Illness Date of Service: 07/19/22 Chief Complaint: Right long finger ulcer History of Wound: This 72-year-old white female was seen in the emergency room at [facility] for redness and drainage of a right third finger amputation stump site and positive MRSA blood cultures. She was seen in the emergency room 3 days prior and sent home on Keflex but the wound culture came back positive for MRSA and the prescription was changed from Keflex to Bactrim, the morning she was seen in the ER this admission, her blood culture was positive for Staph aureus and she was called to the ED for evaluation. Blood work showed a normal white blood cell count, patient's creatinine was elevated at 2.33 and BUN was 68 patient's blood sugar was 167. 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 Patient was admitted to PCU for anonhealing amputation stump MRSA ulcer with exposed bone suspicious for osteomyelitis and started on IV antibiotics. She has diabetes mellitus and is at riskfor worsening infection that may extend to other parts of the hand which may lead to stiffness and difficulty with range of motion. Surgery 07/12/22 - Surgical preparation right long finger amputation stump ulcer with incision and drainage and excisional debridement MRSA abscess and partial ostectomy middle phalanx for osteomyelitis. Operative tissue cultures positive for Enterobacter cloacae complex and MRSA. Operative bone cultures positive for MRSA and MRSE. She was discharged home on 07/15/22 with a PICC line and IV Vancomycin and oral Cipro. She was seen by ID while hospitalized and is to follow up with him in 2 weeks. She has home health and friends to help with the IV antibiotics and dressing changes. Today she denies fever, chills, nausea or vomiting. Progress of Wound: Right long finger ulcer is improving. There still is bone exposure She is tolerating dressing changes well. FOR[facility]LY [facility], [facility] Medical History Abnormal mammogram of right breast Abnormal mammogram of right breast Abscess of right middle finger Acute kidney injury Afib Alcohol use Anemia Anemia Anxiety Anxiety and depression Arthritis Atrial fibrillation Back pain Bacteremia Breast lump Burn injury of skin of finger Cardiology follow-up encounter Chronic cough COVID-19 vaccine series completed CPAP (continuous positive airway pressure) dependence CVA (cerebral vascular accident) Depression Depression with anxiety Diabetes Dietary restriction DKA (diabetic ketoacidoses) Essential hypertension Finger infection Flu vaccine need Former smoker Health care maintenance High cholesterol History of echocardiogram History of edema History of stress test History of UTI HTN (hypertension) Hyperlipidemia Hypertension Irregular heartbeat Kidney disease retirement (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 MRSA infection 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 without evidence of necrosis Non-rheumatic mitral valve stenosis Nonrheumatic aortic (valve) stenosis Osteoarthritis Osteomyelitis of finger of right hand Osteoporosis Overactive bladder Pancreatitis Paroxysmal atrial fibrillation Post-menopausal Preoperative evaluation to rule out surgical contraindication Sleep apnea Urinary incontinence, overflow Venous insufficiency Vision problems Walker as ambulation aid Weakness Home Medications ferrous sulfate 325 mg (65 mg iron) tablet 325 mg PO DAILY Supplement 01/27/21 [History Last Taken 07/08/22] ascorbic acid (vitamin C) 500 mg tablet (Vitamin C) 500 mg PO DAILY vitamin 08/21/21 [History Last Taken 07/08/22] acetaminophen 325 mg capsule 650 mg PO Q4H PRN Pain 12/02/21 [History Last Taken 07/08/22] cholecalciferol (vitamin D3) 50 mcg (2,000 unit) capsule 50 mcg PO DAILY [id number]/19/22 [History Last Taken 07/08/22] denosumab 60 mg/mL subcutaneous syringe (Prolia) 60 mg subcut [id number] #1 mL 03/11/22 [Rx Last Taken Unknown] glimepiride 4 mg tablet 4 mg PO BID dm 3 months #180 tabs 06/24/22 [Rx Last Taken 07/09/22] losartan 50 mg tablet 50 mg PO BID bp #180 tabs 06/24/22 [Rx Last Taken 07/09/22] oxybutynin chloride 15 mg tablet,extended release 24 hr 15 mg PO BID bladder #180 tabs 06/24/22 [Rx Last Taken 07/09/22] sertraline 100 mg tablet (Zoloft) 100 mg PO DAILY anxiety #90 tabs 06/24/22 [Rx Last Taken 07/08/22] metoprolol tartrate 50 mg tablet 50 mg PO BID heart #180 tabs 06/28/22 [Rx Last Taken 07/09/22] metformin 1,000 mg tablet 1,000 mg PO BID DM #180 tabs 07/06/22 [Rx Last Taken 07/09/22] simvastatin 20 mg tablet 20 mg PO QHS cholesterol #90 tabs 07/06/22 [Rx Last Taken 07/08/22] amlodipine 10 mg tablet 10 mg PO DAILY BP 07/09/22 [History Last Taken 07/09/22] multivitamin 1 tab PO DAILY SUPPLEMENT 07/09/22 [History Last Taken 07/08/22] ciprofloxacin HCl 500 mg tablet 500 mg PO BID 10 days #20 tabs 07/14/22 [Rx Last Taken Unknown] vancomycin 1 gram/200 mL in dextrose 5 % intravenous piggyback 1,000 mg IV Q24H 40 days #8,000 mL 07/14/22 [Rx Last Taken Unknown] aspirin 81 mg chewable tablet 81 mg PO BREAKFAST #0 tabs 07/15/22 [Rx Last Taken Unknown] warfarin 2.5 mg tablet (Jantoven) 2.5 mg PO DINNER #30 tabs 07/15/22 [Rx Last Taken Unknown] Allergy/AdvReac Type Severity Reaction Status Date / Time fosinopril [From Monopril] Allergy Unknown unknown Verified 07/22/22 10:13 pioglitazone AdvReac Other Verified 07/22/22 10:13 Family History Father Diabetes Hypertension High cholesterol Heart disease Melanoma Surgical History History of back surgery History of carpal tunnel release History of hand surgery History of hysterectomy History of left elbow replacement History of surgical amputation of finger of right hand Hx of colonoscopy S/P hysterectomy S/P ORIF (open reduction internal fixation) fracture Status post surgical amputation of finger of right hand Social History household members: none Smoking Status: Never smoker how long ago did patient quit smokin years ago alcohol intake: current alcohol intake frequency: holidays/special occasions only substance use type: does not use what type of physical activity do you participate in: other details: aquasize ROS Constitutional Constitutional: Denies chills or fever(s) Eyes Eyes: Reports none ENT HEENT: Reports none Cardiovascular Cardiovascular: Denies chest pain or dyspnea Respiratory/Chest Respiratory/Chest: Denies cough or dyspnea Gastrointestinal Gastrointestinal: Denies diarrhea, nausea or vomiting Musculoskeletal Musculoskeletal: Reports joint stiffness and joint swelling Integumentary Integumentary: Reports wounds Neurologic Neurologic: Reports none Psychiatric Psychiatric: Reports none Endocrine Endocrinology: Reports none Vital Signs Vital Signs Vital Signs: 07/19/22 13:32 Temperature 97.2 F L Temperature Source Temporal Pulse Rate 16 L Respiratory Rate 16 Blood Pressure 154/67 H Blood Pressure Mean 96 Blood Pressure Source Monitor Blood Pressure Position Sitting Blood Pressure Location Right Arm Oxygen Delivery Method Room Air Weight Weight: 185 lb Body Mass Index (BMI) 34.9 Physical Exam Const alert, oriented x3 and no apparent distress General Appearance: cooperative HEENT normocephalic Head and Scalp: atraumatic Eyes General Eye: normal appearance of both eyes Neck full ROM Lymph Lymphatic: no lymphedema noted Resp normal respiratory effort, normal air movement and clear to auscultation bilaterally Cardio regular rate and regular rhythm GI soft to palpation and non-tender Back/Spine normal ROM Extremity full ROM and normal capillary refill Skin Wound Narrative: Right long finger stump ulcer is beefy pink. There is bone exposure. Neuro oriented x3 and moves all extremities Psych mental status grossly normal, cooperative and affect normal Debridement Note Debridement Note Wound debrided: long finger stump ulcer Laterality: Right Type of Debridement: Excisional debridement Anesthesia Used: 5% Lidocaine Gel Depth: Down to and including healthy tissue, in the subcutaneous layer and to muscle Percentage of wound debrided: 100 Instrument Used: 3mm curette Tissue Removed: Devitalized tissue and slough into muscle with bone exposure Severity: Fat Layer Exposed Amount of bleeding with debridement: Mild Bleeding Controlled with: Pressure and Compression and gauze Patient tolerated procedure: Patient tolerated procedure well Post-Debridement Measurements and Additional Note: Post-Debridement Measurements/Treatment - Nurse 1 - General Ulcer Assessment Start: 07/19/22 13:32 Freq: Status: Active Protocol: [email or web address] Activity Type Activity Date Activity User E-sign Co-sign Detail Recorded Client Recorded Date Recorded By Document 07/19/22 13:32 [facility] [id number] 07/19/22 13:39 [facility] 07/19/22 13:32 - Today's Visit Information Type of service Initial Visit Arrival Mode Ambulatory, Walker Transfer Assistance None Patient Identification Verified (Name & Yes ) Patient Requires Transmission-Based No Precautions Height and Weight Height 5 ft 1 in Weight 185 lb Weight in Pounds 185.0 lbs Weight Measurement Method Stated by Patient Body Mass Index (BMI) 34.9 BMI Classification Obese BSA - Florina 1.83 Vital Signs Temperature (97.8 F-99.1 F) 97.2 F L Temperature Source Temporal Pulse Rate (60-100) 16 L Pulse Location Monitor Respiratory Rate (12-18) 16 Respiratory rate source Observation Oxygen Delivery Method Room Air Blood Pressure (90/60-120/80) 154/67 H Blood Pressure Mean 96 Source Monitor Position Sitting Blood Pressure Location Right Arm History Since Last Visit- (Skip if this is Patient's initial visit) Left Footwear Regular Shoe Right Footwear Regular Shoe Pain Scale: 0-10 Numeric Is Patient Pain Free? Yes Communication Assessment Preferred language Tanzanian 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 Required No Able to Read Yes Able to Write No: has difficulty Communication Tools None Right Hearing Abillity Hard of Hearing Left Hearing Abillity Hard of Hearing Visual Assistive Devices Glasses Teaching Assessment Preferences Verbal,Written, Audio/Visual, Demonstration Barriers to Learning Hearing Impairment Readiness To Learn Excellent Willingness to Engage in Self Management High Activies Readiness to Engage in Self Management High Activities Anxiety Level Calm Cooperation Cooperative Perception Coherent Interest in Health Problem Asks Questions Education Importance Acknowledges Need Does Patient Smoke tobacco or other No substances Smoking Status Never smoker Is Patient Diabetic Yes Functional Assessment Recent Decline in Ability to Perform Denies Any Declines Culture/Episcopal/Camera Maker Cultural/Episcopal Needs that may affect No Treatment Plan Teaching: Wound Center *Welcome to the Wound Center -Person Taught Patient,Family -Teaching Method Discussion -Response to teaching Verbalize understanding Welcome to the Wound Care Center Maldivian WC - Nurse 1 - General Ulcer Measurement Start: 07/19/22 13:32 Freq: Status: Active Protocol: Activity Type Activity Date Activity User E-sign Co-sign Detail Recorded Client Recorded Date Recorded By Document 07/19/22 13:32 [facility] [id number] 07/19/22 13:39 [facility] 07/19/22 13:32 Wound Center Nurse 1 #1- R 3RD FINGER (POST OP) -Combined with other wound No -Current Size (cm) - Length 1 -Current Size (cm) - Width 1 -Current Size (cm) - Depth 0.1 -Total Square Cm 1 -Date of Last Picture (Recall this 07/19/22 field) -Photo Taken Yes -Epithelialization None Present -Tunneling No -Undermining/Tunneling No -Circular Undermining No -Exudate Amt Small -Exudate Type Serosanguineous -Wound Margin Distinct, Outline Attached -Granulation Amt Large (67-100%) -Granulation Quality [place] -Slough/Fibrin Yes -Necrosis Amt Small (1-33%) -Necrotic Tissue Type Adherent Slough -Texture (Jessica-wound Skin Appearance) Assessed, Scarring -Moisture (Jessica-wound Skin Appearance) Assessed,Dry/ Scaly -Color (Jessica-wound Skin Appearance) Assessed -Temperature (Jessica-wound Skin No Abnormality Appearance) (Pt Warm) -Tenderness on Palpation (Jessica-wound No Skin Appearance) -Ulcer Cleansing Rinsed/ Irrigated with Saline -Foul Odor after Cleansing No -Anesthetic Used 5% Lidocaine Gel - Nurse 2 - General Ulcer CM Notes Start: 07/19/22 13:32 Freq: Status: Active Protocol: Activity Type Activity Date Activity User E-sign Co-sign Detail Recorded Client Recorded Date Recorded By Document 07/19/22 14:16 [id number] 07/19/22 14:21 07/19/22 14:16 Wound Center Nurse 2 -Time 14:16 -Correct Patient Yes -Correct Side, Site, Position Yes -Correct Procedure Yes -Procedure Performed Yes -Type of Procedure Debridement -Clinical Debridement Muscle / Fascia -Tissue Removed Muscle -Post Debridement (cm) - Length 1.4 -Post Debridement (cm) - Width 1.3 -Post Debridement (cm) - Depth 0.1 -Total Square (Post) (cm) 1.82 -Area of Debridement (cm) - Length 1.4 -Area of Debridement (cm) - Width 1.3 -Total Square (Area) (cm) 1.82 -Tunneling No -Undermining/Tunneling No -Circular Undermining No -Wound/Ulcer Outcome Not Healed -Ulcer Cleansing Rinsed/ Irrigated with Saline -Foul Odor after Cleansing No -Bioengineered Tissue No -Bleeding Controlled with Pressure -Treatment Response Procedure Tolerated Well -Offloading No -Debridement - Subq, 1st 20sq cm No -Debridement - Muscle / Fascia, 1st Yes 20sq cm Pain Scale: 0-10 Numeric Is Patient Pain Free? Yes - Nurse 3 - General Ulcer D/C NN Start: 07/19/22 13:32 Freq: Status: Active Protocol: Activity Type Activity Date Activity User E-sign Co-sign Detail Recorded Client Recorded Date Recorded By Document 07/19/22 14:31 [facility] [id number] 07/19/22 14:31 [facility] 07/19/22 14:31 Wound Care Center Nurse 3 #1- R 3RD FINGER (POST OP) -Ulcer Cleansing Rinsed/ Irrigated with Saline -Foul Odor after Cleansing No -Primary Dressing Applied Silvercel -Other Dressing TOPPED W/ SPANDAGE/COBAN; DRSG PER [place] SALES RECRUITMENT SPECIALIST -Primary Dressing Covered/Secured with Secured with Tape -Silvercel 1 Treatment Response Procedure Tolerated Well Pain Scale: 0-10 Numeric Is Patient Pain Free? Yes WC - Visit Discharge Discharge Condition Stable Ambulatory Status Ambulatory Transportation Private Auto Accompanied by FRIEND Facility Type Home Health Charges/Coding Procedures Integumentary [id number]: [id number] Global Visit Assessment/Plan Assessment/Plan (1) Osteomyelitis of finger of right hand: CODE(S): M86.9 - Osteomyelitis, unspecified (2) retirement (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: CODE(S): Z79.01 - 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 (3) MRSA infection: CODE(S): A49.02 - Methicillin resistant Staphylococcus aureus infection, unspecified site (4) Diabetes: CODE(S): E11.9 - Type 2 diabetes mellitus without complications (5) Type II diabetes mellitus: CODE(S): E11.9 - Type 2 diabetes mellitus without complications (6) Skin ulcer of finger: CODE(S): L98.499 - Non-pressure chronic ulcer of skin of other sites with unspecified severity PLAN: Plan Patient evaluated at the wound healing center today. Wound care - Moistened silvercel topped with gauze. May use spandage to secure to finger. If need to use bandaid, that is ok. Change dressing daily and prn. Keep hand elevated. She is receiving IV Vancomycin and oral Cipro. She is being seen by ID. Follow up one week. 07/25/221836 <Electronically signed by Génesis Patel NP LEAD DESIGNER-C> Cosigner Signature (if applicable): CC: ~ Signed [facility] Work Phone: 1(116) 523-345503-08-2022 NotePhysical Therapy Inpatient Evaluation Medical Diagnosis: antibiotic spacer placement on 04/13/2021 s/p removal of antibiotic spacer and right total elbow by Dr. Stout on 07/20/21 Therapy Diagnosis: Rank Code Description 1 R26.2 Difficulty in walking, not elsewhere classified 2 R26.81 Unsteadiness on feet Demographics: Age: 71Y Gender: Female Primary Language: Maldivian Preferred Language: Maldivian Referring Service/Team: Orthopedics Past Medical History: Past Medical History Diabetes Atrial fibrillation HTN CVA breast lump Osteopenia History of right distal humerus fracture Past Surgical History ORIF right humerus History of Present Illness: Date of Surgery: 07/20/21 Additional Information: Patient is a 71-year-old female with a past medical history significant for hypertension, hyperlipidemia, diabetes, paroxysmal A. fib who is being admitted to [facility] for removal of antibiotic spacer and right total elbow by Dr. Stout. Patient fell in early January 2021 with right distal humerus fracture. Patient underwent ORIF of right upper extremity on 02/26/2021. Postoperative course was complicated by hardware failure. Patient was seen by Ortho and had an antibiotic spacer placed on 04/13/2021. Patient was discharged on p.o. Bactrim. Patient returns today for antibiotic spacer removal and right total elbow by Dr. Stout. Patient seen and evaluated postoperatively in PACU. Patient is drowsy, arousable, follows commands and answers questions appropriately. Denies pain at this time. Denies chest pain, shortness of breath, dizziness, nausea, or vomiting. We have been asked to see for medical management. copied from [facility] Date of Admission: 07/20/2021 7:39:[address] [facility] PATIENT NAME: JOSELINE ELLIS [address] [facility] [address] [place] MEDICAL REC #: [id number] [place] [address] ADMIT DATE: SERVICE DATE: 07/21/21 Physical Therapy Assessment Report ATTENDING PHY: Rajwinder Stout MD Rehabilitation Precautions/Restrictions: fall risk, NWB (R) UE Imaging/Testing Results from Chart: NA SUBJECTIVE Prior Level of Functioning: Indoor Mobility: Patient needed partial assistance from another person to complete activities. Stairs: Patient needed partial assistance from another person to complete activities. Pt reports that she was able to ambulate short distances with a [facility]QC at the SNF. She repots using a w/c for long distance mobility. She reports requiring assist with bathing and dressing Prior Device Use: Performance GG110. Prior Device Manual wheelchair Yes Patient/Caregiver Goals: Patient's functional goals: go home Pain: Patient currently has pain. Location: (R) UE Type: Acute Quality: Aching. Pain Scale: Visual Analog (VAS). Patient reports a pain level of 2 out of 10. Patient's acceptable level of pain 0 out of 10. Interferes with physical activity. Pain is alleviated by: rest Pain is exacerbated by: mobility Interventions: Repositioned patient. Home Environment: Patient lives alone. Patient lives in [facility] facility/extended care facility with staff assistance. Home is single level. Patient is not required to manage stairs within the home. First floor full bathroom setup available. No stairs to enter the home. There is no ramp available to enter home. Equipment Owned: Small based quad cane., Manual wheelchair. Social History: Marital Status: W Children: Patient has no children. Employment Status: retired Recreational Activities/Hobbies: [employer] games OBJECTIVE Cognitive Screen Responsiveness: Alert. Orientation: Oriented to person, place, time, and situation. Following Commands: Patient is able to follow 3-step commands. [facility] PATIENT NAME: JOSELINE ELLIS [address] [facility] [facility] MEDICAL REC #: [id number] [place] [address] ADMIT DATE: SERVICE DATE: 07/21/21 Physical Therapy Assessment Report ATTENDING PHY: Rajwinder Stout MD Range of Motion Upper Extremity: Grossly within functional limits Lower Extremity: Grossly within functional limits Strength Upper Extremity: Grossly within functional limits Lower Extremity: Grossly within functional limits Tone/Spasticity: No relevant impairments. Sensation: Grossly intact. Balance: Static balance in a seated position is good. Dynamic balance in a seated position is good. Static balance in a standing position is fair. Dynamic balance in a standing position is fair. Therapeutic/Functional Activities: Bed Mobility: Not assessed. Transfers: Patient transferred sit to/from stand requiring minimal assistance of 1 person. Cuing for hand placement and safety. Pt required Min A due to instabiltiy and decreased safety Locomotion/Gait/Ambulation: Patient was minimal ass (more content not included)...[facility]03-08-2022 NoteOccupational Therapy Inpatient Evaluation Medical Diagnosis: antibiotic spacer placement on 04/13/2021 s/p removal of antibiotic spacer and right total elbow by Dr. Stout on 07/20/21 OCCUPATIONAL PROFILE AND HISTORY Therapy Diagnosis: Rank Code Description 1 Z74.1 Need for assistance with personal care Demographics: Age: 71Y Gender: Female Primary Language: Maldivian Preferred Language: Maldivian Referring Service/Team: Orthopedics Past Medical History: Past Medical History Diabetes Atrial fibrillation HTN CVA breast lump Osteopenia History of right distal humerus fracture Past Surgical History ORIF right humerus History of Present Illness: Date of Surgery: 07/20/2021 Additional Information: Patient is a 71-year-old female with a past medical history significant for hypertension, hyperlipidemia, diabetes, paroxysmal A. fib who is being admitted to [facility] for removal of antibiotic spacer and right total elbow by Dr. Stout. Patient fell in early January 2021 with right distal humerus fracture. Patient underwent ORIF of right upper extremity on 02/26/2021. Postoperative course was complicated by hardware failure. Patient was seen by Ortho and had an antibiotic spacer placed on 04/13/2021. Patient was discharged on p.o. Bactrim. Patient returns today for antibiotic spacer removal and right total elbow by Dr. Stout. Patient seen and evaluated postoperatively in PACU. Patient is drowsy, arousable, follows commands and answers questions appropriately. Denies pain at this time. Denies chest pain, shortness of breath, dizziness, nausea, or vomiting. We have been asked to see for medical management. copied from [facility] Date of Admission: 07/20/2021 7:39:[address] [facility] PATIENT NAME: JOSELINE ELLIS [address] [facility] [address] MEDICAL REC #: [id number] [place] [address] ADMIT DATE: SERVICE DATE: 07/21/21 Occupational Therapy Assessment ATTENDING PHY: Rajwinder Stout MD Rehabilitation Precautions/Restrictions: fall risk, NWB (R) UE Imaging/Testing Results from Chart: NA Prior Level of Functioning: Self Care: Patient needed partial assistance from another person to complete activities. Functional Cognition: Patient needed partial assistance from another person to complete activities. Pt reports that she was able to ambulate short distances with a SBQC at the [facility]. She repots using a w/c for long distance mobility. She reports requiring assist with bathing and dressing. Patient/Caregiver Goals: Patient's functional goals: go home Pain: Patient currently has pain. Location: RUE Type: Acute Quality: Aching. Pain Scale: Visual Analog (VAS). Patient reports a pain level of 2 out of 10. Patient's acceptable level of pain 0 out of 10. Pain does not interfere with any activity at this time. Pain is alleviated by: pain meds Pain is exacerbated by: movement Interventions: Repositioned patient. Home Environment: pt residing at [facility]. Equipment Owned: [employer], w/c Marital Status: W Social History: Children: Patient has no children. Employment Status: retired Recreational Activities/Hobbies: [employer] OBJECTIVE/OCCUPATIONAL PERFORMANCE Activities of Daily Living Current Status Previous Status ADLs Feeding Supervision - Grooming Minimal assistance - Bathing-UE Maximal assistance - Bathing-LE Maximal assistance - Dressing-UE Maximal assistance - Dressing-LE Maximal assistance - Toileting Maximal assistance - AM-PAC Daily Activities: [facility] PATIENT NAME: JOSELINE ELLIS [address] [facility] [address] MEDICAL REC #: [id number] [place] [address] ADMIT DATE: SERVICE DATE: 07/21/21 Occupational Therapy Assessment ATTENDING PHY: Rajwinder Stout MD Putting On/Taking Off Lower Body Clothing: A lot of help needed Bathing:: A lot of help needed Toileting: A lot of help needed Putting On/Taking Off Upper Body Clothing: A lot of help needed Grooming: A little help needed Eating a Meal: A little help needed Raw Score = 14 , AM-PAC t-Scale Score = 33.39 and G-Code Modifier = CK Functional Mobility: Bed Mobility: NT pt seated in chair Transfers: Patient transferred sit to/from stand requiring minimal assistance of 1 person. slow to rise Patient transferred to/from the toilet requiring minimal assistance of 1 person. Patient used the following equipment: Grab bars. Raised toilet seat. pt unable to utilize grab bar on R side d/t RUE NWB; max cues to push up from commode Locomotion/Gait/Ambulation: Patient was minimal assist with gait/ambulation of 1 person for 20 ft x2 . Patient requires the following assistive device(s): Small based quad cane. slowed pacing, no LOB, denied dizziness Range of Motion Uppe (more content not included)...[facility]12-03-2021 Note [facility]11-30-2021 NoteOccupational Therapy Inpatient Evaluation Medical Diagnosis: s/p Removal of hardware right distal humerus, irrigation debridement of skin subcutaneous tissue muscle and bone right arm with cultures, placement antibiotic spacer right distal humerus by Dr. Stout on 04/13/2021 OCCUPATIONAL PROFILE AND HISTORY Therapy Diagnosis: Rank Code Description 1 Z74.1 Need for assistance with personal care Demographics: Age: 71Y Gender: Female Primary Language: Maldivian Preferred Language: Maldivian Referring Service/Team: Orthopedics Past Medical History: Past Medical History Diabetes Atrial fibrillation HTN CVA breast lump Osteopenia History of right distal humerus fracture Past Surgical History ORIF right humerus History of Present Illness: Date of Surgery: 04/13/2021 Additional Information: Patient is 71-year-old female with multiple medical problems including diabetes and atrial fibrillation on anticoagulation. Patient aware of reduction from fixation of a right distal humeral fracture by Dr. Guy in [place] several weeks ago. Patient was found to have failed hardware on postoperative visits. She was seen in my office approximately 10 days ago. Patient's x-rays were reviewed with her. Patient states she also has a diagnosis of osteopenia. She had failure of her hardware. The risk benefits operative versus nonoperative treatment were discussed extensively with the patient and the family in the room. I discussed with her that we could do removal of hardware try to ensure that there is no infection in total elbow arthroplasty to help gain some motion and comfort. Per op report Date of Admission: 04/13/2021 5:48:00 AM Rehabilitation Precautions/Restrictions: NWB RUE, sling, fall risk [facility] PATIENT NAME: JOSELINE ELLIS [address] [facility] [address] MEDICAL REC #: [id number] [place] [address] ADMIT DATE: SERVICE DATE: 04/14/21 Occupational Therapy Assessment ATTENDING PHY: Rajwinder Stout MD Imaging/Testing Results from Chart: n/a Prior Level of Functioning: Self Care: Patient needed partial assistance from another person to complete activities. Functional Cognition: Patient needed partial assistance from another person to complete activities. pt reports she was a SNF post initial surgery, states she was home for days, she was unable to complete IADLs, had an aide come 1x to assist with spongebath. pt notes falls at SNF from weakness in dion LE, pt notes she was utilize FWW post-op. Patient/Caregiver Goals: Patient's functional goals: to go home Pain: Patient currently without complaints of pain. Home Environment: Patient lives alone. Patient lives in a single family home. Home is three levels. Patient is not required to manage stairs within the home. First floor full bathroom setup available. There are 1+1 steps to enter the home, with no hand railings. There is no ramp available to enter home. Equipment Owned: WIS with grab bars, shower chair, bidet, FWW, cane, hospital bed Marital Status: W Social History: Children: Patient has no children. Employment Status: retired Recreational Activities/Hobbies: ipad games OBJECTIVE/OCCUPATIONAL PERFORMANCE Activities of Daily Living Current Status Previous Status ADLs Feeding Minimal assistance - Grooming Minimal assistance - Bathing-UE Maximal assistance - Bathing-LE Maximal assistance - Dressing-UE Maximal assistance - Dressing-LE Maximal assistance - Toileting Moderate assistance - AM-PAC Daily Activities: Putting On/Taking Off Lower Body Clothing: A lot of help needed Bathing:: A lot of help needed Toileting: A lot of help needed Putting On/Taking Off Upper Body Clothing: A lot of help needed Grooming: A lot of help needed Eating a Meal: A little help needed Raw Score = 13 , AM-PAC t-Scale Score = 32.03 and G-Code Modifier = CL [facility] PATIENT NAME: JOSELINE ELLIS [address] [facility] [address] MEDICAL REC #: [id number] [place] [address] ADMIT DATE: SERVICE DATE: 04/14/21 Occupational Therapy Assessment ATTENDING PHY: Rajwinder Stout MD Functional Mobility: Bed Mobility: NT pt in chair pre and post session Transfers: Patient transferred sit to/from stand requiring minimal assistance of 1 person. cues for hand placement to push with LUE Patient transferred to/from the toilet requiring minimal assistance of 1 person. Patient used the following equipment: Raised toilet seat. Grab bars. pt able to utilize grab bar on L side Locomotion/Gait/Ambulation: Patient was minimal assist with gait/ambulation of 1 person for 14 ft x2 . Patient requires the following assistive device(s): Small based quad cane. quick pacing, unsteady on feet, running into wall on R side (more content not included)...[facility]11-30-2021 NotePhysical Therapy Inpatient Evaluation Medical Diagnosis: s/p Removal of hardware right distal humerus, irrigation debridement of skin subcutaneous tissue muscle and bone right arm with cultures, placement antibiotic spacer right distal humerus by Dr. Stout on 04/13/2021 Therapy Diagnosis: Rank Code Description 1 R26.81 Unsteadiness on feet 2 R26 Abnormalities of gait and mobility Demographics: Age: 71Y Gender: Female Primary Language: Maldivian Preferred Language: Maldivian Referring Service/Team: Medicine Orthopedics Past Medical History: Past Medical History Diabetes Atrial fibrillation HTN CVA breast lump Osteopenia History of right distal humerus fracture Past Surgical History ORIF right humerus History of Present Illness: Date of Surgery: 04/13/21 Additional Information: Patient is 71-year-old female with multiple medical problems including diabetes and atrial fibrillation on anticoagulation. Patient aware of reduction from fixation of a right distal humeral fracture by Dr. Guy in [place] several weeks ago. Patient was found to have failed hardware on postoperative visits. She was seen in my office approximately 10 days ago. Patient's x-rays were reviewed with her. Patient states she also has a diagnosis of osteopenia. She had failure of her hardware. The risk benefits operative versus nonoperative treatment were discussed extensively with the patient and the family in the room. I discussed with her that we could do removal of hardware try to ensure that there is no infection in total elbow arthroplasty to help gain some motion and comfort. Per op report Date of Admission: 04/13/2021 5:48:00 AM Rehabilitation Precautions/Restrictions: [facility] PATIENT NAME: JOSELINE ELLIS [address] [address] MEDICAL REC #: [id number] [place] [address] ADMIT DATE: SERVICE DATE: 04/14/21 Physical Therapy Assessment Report ATTENDING PHY: Rajwinder Stout MD, sling, fall risk Imaging/Testing Results from Chart: n/a SUBJECTIVE Prior Level of Functioning: Indoor Mobility: Patient needed partial assistance from another person to complete activities. Stairs: Patient needed partial assistance from another person to complete activities. pt reports she was a SNF post initial surgery, states she was home for days, she was unable to complete IADLs, had an aide come 1x to assist with spongebath. pt notes falls at SNF from weakness in [place] LE, pt notes she was utilize FWW post-op. Prior Device Use: Performance GG110. Prior Device None of Above Yes Patient/Caregiver Goals: Patient's functional goals: to go home Pain: Patient currently has pain. Location: Surgical Type: Acute Quality: Aching. Pain Scale: Visual Analog (VAS). Patient reports a pain level of 3 out of 10. Patient's acceptable level of pain 0 out of 10. Pain does not interfere with any activity at this time. Pain is alleviated by: Rest and medication Pain is exacerbated by: none stated Interventions: Repositioned patient. Home Environment: Patient lives alone. Patient lives in a single family home. Home is three levels. Patient is not required to manage stairs within the home. First floor full bathroom setup available. There are 1+1 steps to enter the home, with no hand railings. There is no ramp available to enter home. Equipment Owned: WIS with grab bars, shower chair, bidet, FWW, cane, hospital bed Marital Status: W Social History: Children: Patient has no children. Employment Status: retired Recreational Activities/Hobbies: ipad games OBJECTIVE Cognitive Screen Responsiveness: Alert. Orientation: Oriented to person, place, time, and situation. [facility] PATIENT NAME: JOSELINE ELLIS [address] [facility] [address] MEDICAL REC #: [id number] [place] [address] ADMIT DATE: SERVICE DATE: 04/14/21 Physical Therapy Assessment Report ATTENDING PHY: Rajwinder Stout MD Following Commands: Patient is able to follow 3-step commands. Range of Motion Upper Extremity: Grossly within functional limits Lower Extremity: Grossly within functional limits Strength Upper Extremity: Not within functional limits RUE NT; LUE WFL *Per OT assessment Lower Extremity: Grossly within functional limits Tone/Spasticity: No relevant impairments. Sensation: Not tested. Balance: Static balance in a seated position is good. Dynamic balance in a seated position is good. Static balance in a standing position is good. Dynamic balance in a standing position is fair. Therapeutic/Functional Activities: Bed Mobility: Not assessed. Transfers: Patient transferred sit to/from stand requiring minimal assistance of 1 person. Assistance for trunk elevation and steadyi (more content not included)...[facility]10-09-2009 History of Past illness Narrative* Problem Noted Date Resolved Date Hyperglycemia 02/21/2009 01/27/2013 documented as of this encounter (statuses as of 07/21/2021) [facility] note Author Dr. Guzman [facility] July 09, 2022 6:13pm Note Date/Time July 09, 2022 6:11pm [facility] Medical Records Department [address] [place] [address] Pharmacokinetic/Renal -Consult 07/09/221809 MR#: [id number] Acct: [id number] Name: JOSELINE ELLIS Rep #:[id number] : 1950 72 From: Az Regan PCP: Dr. Bernie Reagan MD Status:A DM IN Y Location: AZ3 [id number] Consult Pharmacy has been consulted to manage selected antiobiotic: Vancomycin Type of Consult: New start Suspected Infection: Skin/Soft tissue, Bacteremia Labs: Sodium 135 mmol/L (136-145) L 07/09/22 15:43 Potassium 4.5 mmol/L (3.5-5.1) 07/09/22 15:43 Chloride 101 mmol/L (98-107) 07/09/22 15:43 Carbon Dioxide 25.0 mmol/L (21.0-32.0) 07/09/22 15:43 Anion Gap 9 (5-15) 07/09/22 15:43 BUN 68 mg/dL (7-18) H 07/09/22 15:43 Creatinine 2.33 mg/dL (0.55-1.02) H 07/09/22 15:43 Est GFR (MDRD) Af Amer 27 mL/min (>60) L 07/09/22 15:43 Est GFR (MDRD) Non-Af 22 mL/min (>60) L 07/09/22 15:43 BUN/Creatinine Ratio 29.2 RATIO (10-20) H 07/09/22 15:43 Glucose 167 mg/dL (74-106) H 07/09/22 15:43 Goal Trough: 15-20 mcg/mL Pharmacy Plan for Drug Dosing: NEW START IV VANCOMYCIN Consulting Physician: Dr. Guzman Indication: (+) MRSA Bacteremia, wound infection. Patient has positive MRSA cultures from previous ED visit a few days ago. Goal Trough: 15-20 SrCr: 2.33 CrCl: 22 mL/min Comments: Initial ED dose of 1250mg IV ordered and administered 07/09/22 @1720 Vancomycin Dose: 750mg IV Q24h to start 07/10/22 @1700 Pending Level: 07/11/22 @1630 prior to 3rd total dose per protocol Pharmacy Service will continue to monitor and adjust dosing as required. 07/09/221810 <Electronically signed by Az Regan > Date _ Az Regan 07/09/221812 <Electronically signed by uDrga Guzman MD> Cosigner Signature (if applicable): Date Durga Guzman MD CC: ~ Signed [facility] Work Phone: Discharge summary Author Dr. Lopez [facility] September 15, 2022 11:50am Note Date/Time September 15, 2022 11:49a [facility] Medical Records Department [address] [place] [address] Instructions for Home/Discharge Instructions 09/15/22 1147 MR#: [id number] Acct: [id number] Name: JOSELINE ELLIS Rep #:[id number] : 1950 72 From: Kisha Lopez MD PCP: Dr. Bernie Reagan MD Status:A DM IN Discharge Instructions Diet Discharge Diet: Low fat / Low cholesterol Activity Discharge Activity: Return to Normal Activity Dressing / Incision Call your doctor if you observe: Fever of 101 or Higher, Shortness of breath, Dizziness, Swelling in the ankles, Chest pain and Increased palpitations (irregular heartbeat) Follow Up Care Test Results: Test results from this visit will be discussed in further detail at your follow- up appointment, if applicable. Discharge Plan Admission Admit Date/Time: 09/09/22 16:53 Primary Reason for Your Visit: heart failure, afib with RR Attending Provider: Kisha Lopez Primary Care Provider: Bernie Reagan Consulting Providers: Omayra Cho ; Nadja Jasmine ; Yobany Connor Instructions Patient Instructions: ED Heart Failure, Congestive (CHF) Discharge Orders/Prescriptions Prescriptions: New Jardiance 10 mg Tablet 10 mg PO DAILY Qty: 30 1RF furosemide 20 mg Tablet 20 mg PO DAILY Qty: 30 2RF Continued acetaminophen 325 mg capsule 650 mg PO PRN PRN (Reason: Pain) atorvastatin [Lipitor] 20 mg tablet 20 mg PO DAILY diltiazem HCl [Cardizem CD] 240 mg capsule,extended release 24hr 240 mg PO DAILY metoprolol succinate 100 mg tablet extended release 24 hr 100 mg PO BID warfarin 3 mg tablet 3 mg PO DAILY Rx Instructions: take every day but once week takes 6mg warfarin 6 mg tablet 6 mg PO QWEEK amlodipine 10 mg tablet 10 mg PO DAILY Qty: 90 3RF ascorbic acid (vitamin C) [Vitamin C] 500 mg tablet 500 mg PO DAILY Qty: 90 3RF aspirin 81 mg tablet,chewable 81 mg PO BREAKFAST Qty: 90 3RF cholecalciferol (vitamin D3) 50 mcg (2,000 unit) capsule 50 mcg PO DAILY Qty: 90 3RF ferrous sulfate 325 mg (65 mg iron) tablet 325 mg PO DAILY Qty: 90 3RF glimepiride 4 mg tablet 4 mg PO BID 90 Days Qty: 180 3RF metformin 1,000 mg tablet 1,000 mg PO BID Qty: 180 3RF multivitamin Tablet 1 tab PO DAILY Qty: 90 3RF oxybutynin chloride 15 mg tablet extended release 24hr 15 mg PO BID Qty: 180 1RF sertraline [Zoloft] 100 mg tablet 100 mg PO DAILY Qty: 90 3RF Discontinued cephalexin [cephalexin] 500 mg capsule 500 mg PO Q8H Referrals / Follow Up: Bernie Reagan MD [Primary Care Provider] - Within 2 Weeks Disposition Disposition (needs filled in before D/C Order can be placed): Home, Self Care 09/15/22 1150<Electronically signed by Kisha Lopez MD>Kisha Lopez MD CC: Dr. Yobany Connor MD; Dr. Bernie Reagan MD; Dr. Omayra Cho DO; Dr. Nadja Jasmine, DO ~ Signed [facility] Work Phone: Evaluation + Plan note Future Appointments [facility] Evaluation + Plan note Future Appointments Appointment Date:08/18/2023 01:45:00 PM Scheduled Provider: Location:[facility] Appointment Type:[facility] Hospital Follow Up [facility] Evaluation + Plan note Future Appointments Appointment Date:02/23/2024 01:30:00 PM Scheduled Provider: Location:[facility] Appointment Type:CV OV Future Scheduled Tests Laboratory* A1C Hemoglobin 10/22/23 * Complete Blood Count 10/22/23 * Lipid Profile 10/22/23 * Complete Metabolic Panel 10/22/23 [facility] evaluwtvnj noteNo assessment information available [facility] Work Phone: Evaluation note* Diagnosis Onset Date Resolution Status Acute GI bleeding acute Acute UTI acute Lower GI bleed acute Weakness acute [facility] Work Phone: Evaluation note* Diagnosis Onset Date Resolution Status Acute GI bleeding resolved Acute UTI resolved Lower GI bleed resolved [facility] Work Phone: Evaluation note* Diagnosis Onset Date Resolution Status Acute GI bleeding resolved Acute UTI resolved Lower GI bleed resolved Burn injury of skin of finger acute Closed fracture of right elbow acute Osteoporosis chronic Type II [facility] Work Phone: Evaluation note* Diagnosis Onset Date Resolution Status Burn injury of skin of finger acute Closed fracture of right elbow acute Osteoporosis chronic Type II diabetes mellitus [facility] Flu vaccine need acute Essential hypertension chron ic Osteoporosis chronic Type II diabetes mellitus ch ronic Urinary incontinence, overflow chronic [facility] Work Phone: Evaluation note* Diagnosis Onset Date Resolution Status Flu vaccine need acute Essential hypertension chron ic Osteoporosis chronic Type II diabetes mellitus ch ronic Urinary incontinence, overflow chronic Health care maintenance acut e Essential hypertension chron ic Type II diabetes mellitus ch ronic Urinary incontinence, overflow chronic [facility] Work Phone: Evaluation note* Diagnosis Onset Date Resolution Status Health care maintenance acut e Essential hypertension chron ic Type II diabetes mellitus ch ronic Urinary incontinence, overflow chronic [facility] Work Phone: Evaluation note* Diagnosis Onset Date Resolution Status Health care maintenance acut e Essential hypertension chron ic Type II diabetes mellitus ch ronic Urinary incontinence, overflow chronic Acute kidney injury acute Bacteremia acute Cellulitis of right middle finger acute Finger infection acute [facility] Work Phone: Evaluation note* Diagnosis Onset Date Resolution Status Health care maintenance acut e Essential hypertension chron ic Type II diabetes mellitus ch ronic Urinary incontinence, overflow chronic Abscess of right middle finger acute Acute kidney injury acute Bacteremia acute Cellulitis of right middle finger acute Finger infection acute MRSA infection acute Diabetes chronic Former smoker chronic 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 [id number] chronic 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 shine d chronic [facility] Work Phone: Evaluation note* Diagnosis Onset Date Resolution Status Health care maintenance acut e Essential hypertension chron ic Type II diabetes mellitus ch ronic Urinary incontinence, overflow chronic Abscess of right middle finger acute MRSA infection acute Diabetes chronic retirement (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 chronic 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 [facility] Work Phone: Evaluation note* Diagnosis Onset Date Resolution Status Health care maintenance acut e Essential hypertension chron ic Type II diabetes mellitus ch ronic Urinary incontinence, overflow chronic Abscess of right middle finger acute MRSA infection acute 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 MRSA infection acute Skin ulcer of finger acute Diabetes chronic retirement (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 chronic 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 Type II diabetes mellitus ch ronic Atrial fib/flutter, transient acute Atrial flutter with rapid ventricular response acute Dehydration acute Diarrhea acute Hypercoagulable state due to atrial fibrillation acute MRSA infection acute Occluded PICC line acute Paroxysmal atrial fibrillation with RVR acute Skin ulcer of finger acute 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 [facility] Work Phone: Evaluation note* Diagnosis Onset Date Resolution Status Health care maintenance acut e Essential hypertension chron ic Type II diabetes mellitus ch ronic Urinary incontinence, overflow chronic Abscess of right middle finger acute MRSA infection acute 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 Cerumen impaction acute 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 MRSA infection acute 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 Type II diabetes mellitus ch ronic Skin ulcer of finger resolve d MRSA infection acute 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 Atrial flutter with rapid ventricular response resolved Dehydration resolved Diarrhea resolved Occluded PICC line resolved Skin ulcer of finger resolve d Tachycardia acute Chronic back pain chronic Essential hypertension chron ic Type II diabetes mellitus ch ronic MRSA infection acute 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 Type II diabetes mellitus ch ronic Skin ulcer of finger resolve d [facility] Work Phone: Evaluation note* Diagnosis Onset Date Resolution Status Health care maintenance acut e Essential hypertension chron ic Type II diabetes mellitus ch ronic Urinary incontinence, overflow chronic Abscess of right middle finger acute MRSA infection acute 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 Cerumen impaction acute 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 MRSA infection acute 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 Type II diabetes mellitus ch ronic Skin ulcer of finger resolve d MRSA infection acute 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 Atrial flutter with rapid ventricular response resolved Dehydration resolved Diarrhea resolved Occluded PICC line resolved Skin ulcer of finger resolve d Tachycardia acute Chronic back pain chronic Essential hypertension chron ic Type II diabetes mellitus ch ronic MRSA infection acute 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 Type II diabetes mellitus ch ronic Skin ulcer of finger resolve d Acute UTI acute Elevated brain natriuretic peptide (BNP) level acute Lactic acidosis acute Leukocytosis acute Pneumonia acute Sepsis acute Subtherapeutic international normalized ratio (INR) acute Acute and chronic respiratory failure with hypoxia chronic [facility] Work Phone: Evaluation note* Diagnosis Onset Date Resolution Status Health care maintenance acut e Essential hypertension chron ic Type II diabetes mellitus ch ronic Urinary incontinence, overflow chronic Abscess of right middle finger acute MRSA infection acute 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 Cerumen impaction acute 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 MRSA infection acute 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 Type II diabetes mellitus ch ronic Skin ulcer of finger resolve d MRSA infection acute 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 Atrial flutter with rapid ventricular response resolved Dehydration resolved Diarrhea resolved Occluded PICC line resolved Skin ulcer of finger resolve d Tachycardia acute Chronic back pain chronic Essential hypertension chron ic Type II diabetes mellitus ch ronic MRSA infection acute 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 Type II diabetes mellitus ch ronic Skin ulcer of finger resolve d Acute on chronic heart failu re with preserved ejection fraction (HFpEF) acute Diabetes mellitus acute Elevated brain natriuretic peptide (BNP) level acute Lactic acidosis acute Leukocytosis acute Pneumonia acute Sepsis acute Subtherapeutic international normalized ratio (INR) acute Urinary tract infection acut e Acute and chronic respiratory failure with hypoxia chronic CVA (cerebral vascular accident) chronic Hypertension chronic Paroxysmal atrial fibrillation [facility] Work Phone: Evaluation note* Diagnosis Onset Date Resolution Status Abscess of right middle finger acute MRSA infection acute 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 Cerumen impaction acute 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 MRSA infection acute 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 Type II diabetes mellitus ch ronic Skin ulcer of finger resolve d MRSA infection acute 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 Atrial flutter with rapid ventricular response resolved Dehydration resolved Diarrhea resolved Occluded PICC line resolved Skin ulcer of finger resolve d Tachycardia acute Chronic back pain chronic Essential hypertension chron ic Type II diabetes mellitus ch ronic MRSA infection acute 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 Type II diabetes mellitus ch ronic Skin ulcer of finger resolve d Acute and chronic respiratory failure with hypoxia resolved Acute on chronic heart failu re with preserved ejection fraction (HFpEF) resolved Lactic acidosis resolved Leukocytosis resolved Pneumonia resolved Sepsis resolved Urinary tract infection reso lved MRSA infection acute 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 Type II diabetes mellitus ch ronic Skin ulcer of finger resolve d Intertrigo acute Paroxysmal A-fib acute Acute on chronic heart failure chronic CKD (chronic kidney disease) chronic Respiratory failure noneacti ve [facility] Work Phone: Evaluation note* Diagnosis Onset Date Resolution Status Abscess of right middle finger acute MRSA infection acute 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 Cerumen impaction acute 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 MRSA infection acute 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 Type II diabetes mellitus ch ronic Skin ulcer of finger resolve d MRSA infection acute 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 Atrial flutter with rapid ventricular response resolved Dehydration resolved Diarrhea resolved Occluded PICC line resolved Skin ulcer of finger resolve d Tachycardia acute Chronic back pain chronic Essential hypertension chron ic Type II diabetes mellitus ch ronic MRSA infection acute 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 Type II diabetes mellitus ch ronic Skin ulcer of finger resolve d Acute and chronic respiratory failure with hypoxia resolved Acute on chronic heart failu re with preserved ejection fraction (HFpEF) resolved Lactic acidosis resolved Leukocytosis resolved Pneumonia resolved Sepsis resolved Urinary tract infection reso lved MRSA infection acute 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 Type II diabetes mellitus ch ronic Skin ulcer of finger resolve d Intertrigo acute Acute on chronic heart failure chronic CKD (chronic kidney disease) chronic Paroxysmal A-fib chronic Respiratory failure noneacti ve Anxiety and depression chron ic Essential hypertension chron ic Paroxysmal A-fib chronic Type II diabetes mellitus ch ronic Bilateral leg ulcer acute Chronic anticoagulation acut e Debility acute Failure to thrive acute History of amputation of finger of right hand acute History of back surgery acut e History of carpal tunnel release acute History of cerebrovascular accident acute History of hysterectomy acut e History of left elbow replacement acute Hypertriglyceridemia acute Obstructive sleep apnea acut e Renal insufficiency acute Venous insufficiency acute Acute on chronic heart failure chronic CKD (chronic kidney disease) chronic Essential hypertension chron ic Hyperlipidemia chronic Non-rheumatic mitral valve stenosis chronic Nonrheumatic aortic (valve) stenosis chronic Osteoporosis chronic Paroxysmal A-fib chronic Pulmonary hypertension chron ic Type II diabetes mellitus ch ronic Urinary incontinence, overflow chronic [facility] Work Phone: Evaluation note* Diagnosis Onset Date Resolution Status Cerumen impaction acute 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 MRSA infection acute 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 Type II diabetes mellitus ch ronic Skin ulcer of finger resolve d MRSA infection acute 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 Atrial flutter with rapid ventricular response resolved Dehydration resolved Diarrhea resolved Occluded PICC line resolved Skin ulcer of finger resolve d Tachycardia acute Chronic back pain chronic Essential hypertension chron ic Type II diabetes mellitus ch ronic MRSA infection acute 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 Type II diabetes mellitus ch ronic Skin ulcer of finger resolve d Acute and chronic respiratory failure with hypoxia resolved Acute on chronic heart failu re with preserved ejection fraction (HFpEF) resolved Lactic acidosis resolved Leukocytosis resolved Pneumonia resolved Sepsis resolved Urinary tract infection reso lved MRSA infection acute 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 Type II diabetes mellitus ch ronic Skin ulcer of finger resolve d Intertrigo acute Acute on chronic heart failure chronic CKD (chronic kidney disease) chronic Paroxysmal A-fib chronic Respiratory failure noneacti ve Anxiety and depression chron ic Essential hypertension chron ic Paroxysmal A-fib chronic Type II diabetes mellitus ch ronic Bilateral leg ulcer acute Chronic anticoagulation acut e Debility acute Failure to thrive acute History of amputation of finger of right hand acute History of back surgery acut e History of carpal tunnel release acute History of cerebrovascular accident acute History of hysterectomy acut e History of left elbow replacement acute Hypertriglyceridemia acute Obstructive sleep apnea acut e Renal insufficiency acute Venous insufficiency acute Acute on chronic heart failure chronic CKD (chronic kidney disease) chronic Essential hypertension chron ic Hyperlipidemia chronic Non-rheumatic mitral valve stenosis chronic Nonrheumatic aortic (valve) stenosis chronic Osteoporosis chronic Paroxysmal A-fib chronic Pulmonary hypertension chron ic Type II diabetes mellitus ch ronic Urinary incontinence, overflow chronic Essential hypertension chron ic Hyperlipidemia chronic [facility] Work Phone: Evaluation note* Diagnosis Onset Date Resolution Status MRSA infection acute 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 Type II diabetes mellitus ch ronic Skin ulcer of finger resolve d Intertrigo acute Acute on chronic heart failure chronic CKD (chronic kidney disease) chronic Paroxysmal A-fib chronic Respiratory failure noneacti ve Anxiety and depression chron ic Essential hypertension chron ic Paroxysmal A-fib chronic Type II diabetes mellitus ch ronic Bilateral leg ulcer acute Chronic anticoagulation acut e Debility acute Failure to thrive acute History of amputation of finger of right hand acute History of back surgery acut e History of carpal tunnel release acute History of cerebrovascular accident acute History of hysterectomy acut e History of left elbow replacement acute Hypertriglyceridemia acute Obstructive sleep apnea acut e Renal insufficiency acute Venous insufficiency acute Acute on chronic heart failure chronic CKD (chronic kidney disease) chronic Essential hypertension chron ic Hyperlipidemia chronic Non-rheumatic mitral valve stenosis chronic Nonrheumatic aortic (valve) stenosis chronic Osteoporosis chronic Paroxysmal A-fib chronic Pulmonary hypertension chron ic Type II diabetes mellitus ch ronic Urinary incontinence, overflow chronic Essential hypertension chron ic Hyperlipidemia chronic Bilateral leg ulcer acute Chronic anticoagulation acut e Debility acute Failure to thrive acute History of amputation of finger of right hand acute History of back surgery acut e History of carpal tunnel release acute History of cerebrovascular accident acute History of hysterectomy acut e History of left elbow replacement acute Hypertriglyceridemia acute Obstructive sleep apnea acut e Renal insufficiency acute Venous insufficiency acute Acute on chronic heart failure chronic CKD (chronic kidney disease) chronic Essential hypertension chron ic Hyperlipidemia chronic Non-rheumatic mitral valve stenosis chronic Nonrheumatic aortic (valve) stenosis chronic Osteoporosis chronic Paroxysmal A-fib chronic Pulmonary hypertension chron ic Type II diabetes mellitus ch ronic Urinary incontinence, overflow chronic Bilateral leg ulcer acute Chronic anticoagulation acut e Debility acute Failure to thrive acute History of amputation of finger of right hand acute History of back surgery acut e History of carpal tunnel release acute History of cerebrovascular accident acute History of hysterectomy acut e History of left elbow replacement acute Hypertriglyceridemia acute Obstructive sleep apnea acut e Renal insufficiency acute Venous insufficiency acute Acute on chronic heart failure chronic CKD (chronic kidney disease) chronic Essential hypertension chron ic Hyperlipidemia chronic Non-rheumatic mitral valve stenosis chronic Nonrheumatic aortic (valve) stenosis chronic Osteoporosis chronic Paroxysmal A-fib chronic Pulmonary hypertension chron ic Type II diabetes mellitus ch ronic Urinary incontinence, overflow chronic [facility] Work Phone: Evaluation note* Diagnosis Onset Date Resolution Status Bilateral leg ulcer acute Chronic anticoagulation acut e Debility acute Failure to thrive acute History of amputation of finger of right hand acute History of back surgery acut e History of carpal tunnel release acute History of cerebrovascular accident acute History of hysterectomy acut e History of left elbow replacement acute Hypertriglyceridemia acute Obstructive sleep apnea acut e Renal insufficiency acute Venous insufficiency acute Acute on chronic heart failure chronic CKD (chronic kidney disease) chronic Essential hypertension chron ic Hyperlipidemia chronic Non-rheumatic mitral valve stenosis chronic Nonrheumatic aortic (valve) stenosis chronic Osteoporosis chronic Paroxysmal A-fib chronic Pulmonary hypertension chron ic Type II diabetes mellitus ch ronic Urinary incontinence, overflow chronic [facility] Work Phone: Evaluation note* Diagnosis Onset Date Resolution Status Abrasion of skin of left lower leg acute Abrasion of skin of right lower leg acute Screening-pulmonary TB acute [facility] Work Phone: History and physical note Author Dr. Guzman [facility] July 09, 2022 6:32pm Note Date/Time July 09, 2022 6:03pm [facility] Medical Records Department [address] [place] [address] H&P Exam - Hospitalist 07/09/22 1735 MR#: [id number] Acct: [id number] Name: JOSELINE ELILS Rep #:[id number] : 1950 72 From: Durga Balbuena PCP: Dr. Bernie Reagan MD Status:A DM IN Location: [place] [address] HPI - General General Date of Admission: 07/09/22 Date of Service: 07/09/22 Chief Complaint: Right third finger infection for about 10 days HPI Narrative JOSELINE ELLIS, is a 72 F With history of diabetes mellitus type II was seen for redness and drainage from right third finger amputation is stump over a period of 10 days and positive MRSA blood culture. Earlier patient had amputation of right third DIP joint in 2019 after she cut accidentally cut her finger and was infected and delayed in seeking treatment. She was seen in ED on07/06 and was sent home on Keflex but later wound culture came positive of MRSA therefore prescription was changed from Keflex to Bactrim. In the morning todayher blood culture also came positive for Staph aureus therefore she was called in ED for admission. Overall, patient is states she she is feeling improving with no fever or chills, nausea, vomiting or headache.Earlier she had red streaking going up to forearm that has resolved. Patient has sensation over right third finger stump denies numbness and tingling. Complain of mild back pain. In ED, no tachycardia tachypnea or hypoxia. BP in acceptable limit. Patient isstarted on IV vancomycin and admitted. She also has abnormal kidney function and lactic acidosis discussed in assessment and plan. FOR[facility], [facility] Medical History Abnormal mammogram of right breast Abnormal mammogram of right breast Afib Alcohol use Anemia Anemia Anxiety Anxiety and depression Arthritis Atrial fibrillation Back pain Breast lump Burn injury of skin of finger Cardiology follow-up encounter Chronic cough COVID-19 vaccine series completed CPAP (continuous positive airway pressure) dependence CVA (cerebral vascular accident) Depression Depression with anxiety Diabetes Dietary restriction DKA (diabetic ketoacidoses) Essential hypertension Flu vaccine need Former smoker Health care maintenance High cholesterol History of echocardiogram History of edema History of stress test History of UTI HTN (hypertension) Hyperlipidemia Hypertension Irregular heartbeat Kidney disease Non-rheumatic mitral valve stenosis Nonrheumatic aortic (valve) stenosis Osteoarthritis Osteoporosis Overactive bladder Pancreatitis Paroxysmal atrial fibrillation Post-menopausal Preoperative evaluation to rule out surgical contraindication Sleep apnea Urinary incontinence, overflow Venous insufficiency Vision problems Walker as ambulation aid Weakness Home Medications ferrous sulfate 325 mg (65 mg iron) tablet 325 mg PO DAILY Supplement 01/27/21 [History Last Taken 07/08/22] ascorbic acid (vitamin C) 500 mg tablet (Vitamin C) 500 mg PO DAILY 08/21/21 [History Last Taken 07/08/22] acetaminophen 325 mg capsule 650 mg PO Q4H PRN Pain 12/02/21 [History Last Taken 07/08/22] cholecalciferol (vitamin D3) 50 mcg (2,000 unit) capsule 50 mcg PO DAILY 03/03/22 [History Last Taken 07/08/22] denosumab 60 mg/mL subcutaneous syringe (Prolia) 60 mg subcut [id number] #1 mL 03/11/22 [Rx Last Taken Unknown] furosemide 40 mg tablet 40 mg PO DAILY Fluid retention #90 tabs 06/24/22 [Rx Last Taken 07/09/22] glimepiride 4 mg tablet 4 mg PO BID dm 3 months #180 tabs 06/24/22 [Rx Last Taken 07/09/22] losartan 50 mg tablet 50 mg PO BID bp #180 tabs 06/24/22 [Rx Last Taken 07/09/22] oxybutynin chloride 15 mg tablet,extended release 24 hr 15 mg PO BID bladder #180 tabs 06/24/22 [Rx Last Taken 07/09/22] sertraline 100 mg tablet (Zoloft) 100 mg PO DAILY anxiety #90 tabs 06/24/22 [Rx Last Taken 07/08/22] metoprolol tartrate 50 mg tablet 50 mg PO BID heart #180 tabs 06/28/22 [Rx Last Taken 07/09/22] warfarin 3 mg tablet 3 mg PO DAILY #30 tabs 07/01/22 [Rx Last Taken 07/09/22] metformin 1,000 mg tablet 1,000 mg PO BID DM #180 tabs 07/06/22 [Rx Last Taken 07/09/22] simvastatin 20 mg tablet 20 mg PO QHS cholesterol #90 tabs 07/06/22 [Rx Last Taken 07/08/22] amlodipine 10 mg tablet 10 mg PO DAILY BP 07/09/22 [History Last Taken 07/09/22] multivitamin 1 tab PO DAILY SUPPLEMENT 07/09/22 [History Last Taken 07/08/22] sulfamethoxazole 800 mg-trimethoprim 160 mg tablet 1 tab PO BID ANTIBIOTIC 07/09/22 [History Last Taken 07/09/22] Allergy/AdvReac Type Severity Reaction Status Date / Time fosinopril [From Monopril] Allergy Unknown unknown Verified 07/06/22 13:48 pioglitazone AdvReac Other Verified 07/06/22 13:48 Family History Father Diabetes Hypertension High cholesterol Heart disease Melanoma Surgical History History of back surgery History of carpal tunnel release History of hand surgery History of hysterectomy History of left elbow replacement History of surgical amputation of finger of right hand Hx of colonoscopy S/P hysterectomy S/P ORIF (open reduction internal fixation) fracture Social History household members: none Smoking Status: Former smoker how long ago did patient quit smokin years ago alcohol intake: current alcohol intake frequency: holidays/special occasions only substance use type: does not use what type of physical activity do you participate in: other details: aquasize ROS ROS Narrative Constitutional: Mild fatigue and weakness. No fever HEENT: Reports systems reviewed and no addt'l complaints, except as documented Respiratory/Chest: Denies chest pain, shortness of breath at rest or with exertion Gastrointestinal: Denies coffee ground emesis, hematemesis or vomiting Genitourinary: Denies burning urination or new urinary tract symptoms Musculoskeletal: Right third finger pain. Denies diabetic foot ulcer. Neurologic: Denies seizure-like activity. 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 skin: Wound over right third finger amputation the stump as described in HPI Endocrinology: Reports systems reviewed and no addt'l complaints, except as documented Hematologic/Lymphatic: Reports systems reviewed and no addt'l complaints, exceptas documented Rest 14 ROS are negative except as mentioned in HPI Vital Signs Vital Signs Vital Signs: 07/09/22 14:28 07/09/22 15:47 07/09/22 16:00 Temperature 96.5 F L 98.2 F 98.5 F Temperature Source Temporal Oral Oral Pulse Rate 124 H 139 H 132 H Respiratory Rate 18 18 18 Blood Pressure 113/92 H 135/80 H 119/83 H Blood Pressure Mean 99 98 95 Pulse Ox 96 94 95 Oxygen Delivery Method Room Air Room Air Room Air 07/09/22 17:21 07/09/22 17:22 Temperature 98.2 F 98.2 F Temperature Source Oral Oral Pulse Rate 145 H 145 H Respiratory Rate 16 16 Blood Pressure 157/60 H 157/60 H Blood Pressure Mean 92 92 Pulse Ox 95 96 Oxygen Delivery Method Weight Weight: 186 lb 15.232 oz Body Mass Index (BMI) 35.3 Physical Exam Narrative General: Alert, Oriented x3, Cooperative HEENT: Atraumatic, PERRLA, EOMI, Normocephalic Oral: Oral mucosa moist. No Gingival or Mucosal Lesions/ Ulcerations Neck: Supple, No JVD, Negative Carotid Bruits Lungs: Air entry diminished in bilateral lung bases. No crepitation/rhonchi Cardiovascular: Regular rate, Regular Rhythm, Normal S1, Normal S2, No murmurs Abdomen: Bowel Sounds Present, Soft, Non Tender, Non-Distended : No renal angle tenderness. No suprapubic tenderness. Extremities: No edema, Capillary Refill Less than 3 Seconds Skin: No rashes, No breakdown Musculoskeletal: Mild tenderness of right third finger, sensation intact in right third finger stump.Degenerative arthritis of bilateral knees. Ambulates with a cane. Neurological: Left-sided facial droop, chronic. Chronic slurred speech, residual stroke symptoms. Muscle strength 5/5 at major joints of upper and lower extremities. Psych/Mental Status: Flat affect Results Lab / Micro Data Result Diagrams: 07/09/22 15:43 07/09/22 15:43 Labs: Laboratory Results - last 24 hr 07/09/22 15:43: WBC 8.8, RBC 4.37, Hgb 12.0, Hct 37.7, MCV 86.3, MCH 27.5, MCHC 31.8 L, RDW Std Deviation 48.1 H, RDW Coeff of Zee 15.2 H, Plt Count 369, MPV 10.0, Immature Gran % (Auto) 0.500, Neut % (Auto) 75.9 H, Lymph % (Auto) 16.2 L,Caribou % (Auto) 4.9, Eos % (Auto) 2.0, Baso % (Auto) 0.5, Absolute Neuts (auto) 6.7, Absolute Lymphs (auto) 1.42, Nucleated RBC % 0 07/09/22 15:43: Sodium 135 L, Potassium 4.5, Chloride 101, Carbon Dioxide 25.0, Anion Gap 9, BUN 68 H, Creatinine 2.33 H, Est GFR (MDRD) Af Amer 27 L, Est GFR (MDRD) Non-Af 22 L, BUN/Creatinine Ratio 29.2 H, Glucose 167 H, Calcium 9.9 07/09/22 15:43: Lactic Acid 2.7 H* Radiology Impression Hand X-Ray 07/09/22 15:50 IMPRESSION: 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 Diffuse soft tissue swelling of the third digit without evidence for acute fracture or osteomyelitis Electronically Signed: Monty Kaye MD at 16:09 EST Reading Location ID and State: [facility] / [place] , Service support , Assessment & Plan Assessment/Plan (1) Cellulitis of right middle finger: (2) Acute kidney injury: PLAN: Plan 1. Cellulitis and possible localized abscess of right third finger amputation stump ulcer due to MRSA complicated with MRSA bacteremia: Patient is admitted onMedSurg floor. Patient had x-ray of the hand in ED which does not show acute osteomyelitis or fracture but diffuse soft tissue swelling. MRI of right hand ordered as there is draining pus from deep inside of right third finger stump. Wound culture from 07/06 shows MRSA. Blood culture x2 from 07/06 also shows MRSA. Patient is started on IV vancomycin. Repeat blood culture is ordered in ED. Wound care nurse consulted. Dr. Wolff called and voice message left for the consult 2. Acute kidney injury on CKD stage IIIa: Patient baseline creatinine runs around 1.3, on 07/06/2022. BUN/creatinine high 68/2.33. Patient also had mild hyponatremia but seems isovolemic. IV fluid normal saline 100 mm/h. Serum magnesium and phosphorus level in normal range. Monitor kidney function, electrolytes and intake and output. Hold nephrotoxic medications including furosemide, lisinopril, metformin and oral hypoglycemic agents. 3. Lactic acidosis: I do not think patient is septic but lactic acidosis may bedue to CRISTIAN and patient also on high dose of metformin. Patient has sinus tachycardia 4. Paroxysmal A-fib with sinus tachycardia, chronic HFpEF and valvular heart disease: Twelve-lead EKG ordered. Patient blood pressure is 157/60 therefore tachycardia does not seem to be from sepsis. Patient has history of paroxysmal A-fib on warfarin. Initially patient was on Eliquis could not afford and therefore on warfarin. INR 5.0 therefore hold warfarin. Monitor INR daily. Patient follows in cardiology clinic with Dr. Wesley and Mando lópez. Last echoin September 2018 reported as EF 75%, LA moderately enlarged, mild mitral stenosis, mild TR, RVSP 48 mg consistent with mild pulmonary hypertension. Mild aortic stenosis. Overall echo consistent with mild HFpEF. 5. History of right temporal lobe infarct: Patient was admitted during that time. Continue high intensity statin. Patient was admitted in August 2021 for lower GI bleed therefore only on warfarin. 6. Hypertension and dyslipidemia: Continue amlodipine. Hold lisinopril. Simvastatin changed to atorvastatin 7. Chronic urinary retention on oxybutynin continued VTE prophylaxis: Coagulopathy INR 5.0. Hold warfarin. Living will/advanced directive/end of life care: Patient does have living will or advanced directive. She does not have designated power of workers compensation defense attorney for health but her sister is next to kin. Her has and she does not have kids. After discussion of benefits/risks procedures involved with full code, DNR CC arrest and DNR CC, the patient opted for full code in the beginningbut does not want to prolong her life on artificial life support/ventilator if it becomes irreversible.. Patient does want artificial life support including intubation, tube feed, ventilator and/chest compression, central venous catheter, vasopressor and DC shock if needed Total time spent in [id number] encounter in discussion of advanced directive 17 minutes. Laboratory Results 07/09/22 15:43: WBC 8.8, RBC 4.37, Hgb 12.0, Hct 37.7, MCV 86.3, MCH 27.5, MCHC 31.8 L, RDW Std Deviation 48.1 H, RDW Coeff of Zee 15.2 H, Plt Count 369, MPV 10.0, Immature Gran % (Auto) 0.500, Neut % (Auto) 75.9 H, Lymph % (Auto) 16.2 L,Caribou % (Auto) 4.9, Eos % (Auto) 2.0, Baso % (Auto) 0.5, Absolute Neuts (auto) 6.7, Absolute Lymphs (auto) 1.42, Nucleated RBC % 0 07/09/22 15:43: Sodium 135 L, Potassium 4.5, Chloride 101, Carbon Dioxide 25.0, Anion Gap 9, BUN 68 H, Creatinine 2.33 H, Est GFR (MDRD) Af Amer 27 L, Est GFR (MDRD) Non-Af 22 L, BUN/Creatinine Ratio 29.2 H, Glucose 167 H, Calcium 9.9 07/09/22 15:43: Lactic Acid 2.7 H* 07/09/22 15:43: PT 46.0 H, INR 5.0 H* 07/09/22 15:43: Phosphorus Pending, Magnesium Pending Clinical Impression(s) from Imaging Studies Hand X-Ray 07/09/22 15:50 IMPRESSION: 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 Diffuse soft tissue swelling of the third digit without evidence for acute fracture or osteomyelitis Charges/Coding Visit Charges Inpatient E&M: 99883 Init Hosp L3 Procedures Hospitalists Procedures: 79832 Advncd Care Plan 30 Min 07/09/22 5915 <Electronically signed by Durga Guzman MD> Cosigner Signature (if applicable): CC: Dr. Bernie Reagan MD; Dr. Durga Guzman MD~ Signed ADDENDUM by Dr. Durga Guzman MD on 07/09/22 at 1832 Addendum Twelve-lead EKG shows A-fib with RVR at 134 bpm, QTc 462 ms. Patient is being admitted in PCU. Patient had 5 mg IV metoprolol and BP dropped to 101/70. We will wait for her blood pressure to recover and monitor. If patient continues to be tachycardic and low BP might need amiodarone. A-fib RVR, mild precipitated by infection 07/09/221831<Electronically signed by Durga Guzman MD> Cosigner Signature (if applicable): cc: Dr. Bernie Reagan MD; Dr. Durga Guzman MD ~* Signed [facility] Work Phone: Hospital course Narrative No data available for this section [facility] Discharge instructionsAmbulatory Orders* Ears, Nose and Throat Location: None Selected [facility] Work Phone: Hospital Discharge instructionsAmbulatory Orders* Nephrology Location: None Selected [facility] Work Phone: Hospital Discharge instructionsAmbulatory Orders* Wound Care Location: None Selected [facility] Work Phone: Hospital Discharge instructions No data available for this section [facility] Discharge instructions Additional Instructions Thank you for trusting us with your care today! Please take Tylenol (2 pills, 650 mg), ibuprofen (2 pills, 400 mg) every 6 hours as needed for pain and fever control. Please increase your oral fluid intake. Please return to the emergency department if your symptoms change or worsen. Specifically if you develop palpitations, chest pain, you lose consciousness, develop shortness of breath, if your symptoms change or worsen in any way. Please follow with your primary care physician for further outpatient evaluation and management.[facility] Work Phone: Progress note Author Dr. Connor [facility] September 15, 2022 10:47am Note Date/Time September 15, 2022 10:47a m [facility] Medical Records Department [address] [place] [address] Progress Note - Cardiology 09/15/22 1044 MR#: [id number] Acct: [id number] Name: JOSELINE ELLIS Rep #:[id number] : 1950 72 From: Yobany Connor MD PCP: Dr. Bernie Reagan MD Status:A DM IN Location: [place] [address] Subjective Subjective Converted to normal sinus rhythm. Denies any complaints today. Objective Data Vital Signs: Vital Signs Temp Pulse Resp BP Pulse Ox O2 Del Method O2 Flow Rate 97.9 F 73 18 142/77 H 93 Room Air 3 09/15/22 08:40 09/15/22 08:41 09/15/22 08:40 09/15/22 08:40 09/15/22 08:40 09/15/22 08:40 09/12/22 10:00 Oxygen Flow Rate (L/min) 3 Oxygen Delivery Method Room Air Weight: 191 lb 4.792 oz Body Mass Index (BMI) 36.1 Intake & Output: Intake and Output for Last 24 Hours 09/13/22 09/14/22 09/15/22 23:59 23:59 23:59 Intake Total 1500 / 1500 Output Total 1400 / 1400 950 / 950 600 / 600 Balance 100 / 100 -950 / -950 -600 / -600 Lab / Micro Data Result Diagrams: 09/15/22 04:51 09/15/22 04:51 Labs: Laboratory Results - last 24 hr 09/14/22 11:15: POC Glucose 335 H 09/14/22 15:58: POC Glucose 272 H 09/14/22 20:50: POC Glucose 188 H 09/15/22 04:51: WBC 11.1 H, RBC 4.15 L, Hgb 11.2 L, Hct 36.5 L, MCV 88.0, MCH 27.0, MCHC 30.7 L, RDW Std Deviation 49.3 H, RDW Coeff of Zee 15.3 H, Plt Count 257, MPV 10.9, Immature Gran % (Auto) 0.500, Neut % (Auto) 67.8, Lymph % (Auto) 20.2, [place] % (Auto) 6.1, Eos % (Auto) 5.0, Baso % (Auto) 0.4, Absolute Neuts (auto) 7.5, Absolute Lymphs (auto) 2.23, Nucleated RBC % 0 09/15/22 04:51: Sodium 141, Potassium 3.9, Chloride 110 H, Carbon Dioxide 22.0, Anion Gap 9, BUN 45 H, Creatinine 1.45 H, Estim Creat Clear Calc 27.24, Est GFR (MDRD) Af Amer 46 L, Est GFR (MDRD) Non-Af 38 L, BUN/Creatinine Ratio 31.0 H, Glucose 123 H, Calcium 9.2 09/15/22 06:45: POC Glucose 138 H Micro: Microbiology 09/09/22 20:00 Blood Culture (Wb) - Right Hand Blood Culture - Final No growth in 5 days. 09/09/22 15:30 Blood Culture (Wb) - Left Forearm Blood Culture - Final No growth in 5 days. Rhythm Strip Rhythm Strip: Sinus Rhythm Cardiology Labs/Tests 09/15/22 04:51: WBC 11.1 H, RBC 4.15 L, Hgb 11.2 L, Hct 36.5 L, MCV 88.0, MCH 27.0, MCHC 30.7 L, Plt Count 257, MPV 10.9, Immature Gran % (Auto) 0.500, Neut %(Auto) 67.8, Lymph % (Auto) 20.2, [place] % (Auto) 6.1, Eos % (Auto) 5.0, Baso % (Auto) 0.4, Absolute Neuts (auto) 7.5, Nucleated RBC % 0 09/15/22 04:51: Sodium 141, Potassium 3.9, Chloride 110 H, Carbon Dioxide 22.0, Anion Gap 9, BUN 45 H, Creatinine 1.45 H, Est GFR (MDRD) Af Amer 46 L, Est GFR (MDRD) Non-Af 38 L, BUN/Creatinine Ratio 31.0 H, Glucose 123 H, Calcium 9.2 Rhythm: EKG: ECHO: Stress Test: Cardiac Cath: PCI: CT Surgery: Holter monitor: EPS: PPM: CXR: Chest CT Scan: Assessment & Plan Assessment/Plan (1) Paroxysmal atrial fibrillation: PLAN: Converted spontaneously to normal sinus rhythm. Will consider referral toEP for A-fib ablation as outpatient. Continue metoprolol and diltiazem for heart rate control. If heart rate tends to go on the bradycardic side, then decrease diltiazem. On warfarin for prevention of thromboembolic phenomenon. (2) Acute on chronic heart failure with preserved ejection fraction (HFpEF): PLAN: Improved. Continue Lasix. Continue beta-blockers. Continue Jardiance. (3) Hypertension: PLAN: Continue to monitor. (4) CVA (cerebral vascular accident): PLAN: History of CVA in the past. On aspirin. On warfarin. (5) Diabetes mellitus: PLAN: As per internal medicine. PLAN: Plan No further cardiac input at present. We will sign off. Please call if needed. 09/15/22 1047 <Electronically signed by Yobany Connor MD> Cosigner Signature (if applicable): CC: ~ Signed [facility] Work Phone: Progress note No data available for this section [facility] Chief Complaint Chief Complaint Description Start Date right middle finger injury Preliminary chief co mplaint data, not yet signed by the author as of Instructions Instruction Description Start Date Patient advised to follow-up with Primary Care Physician for BMI management. Advance Directives No Advanced Directives Records Found Advance Directive Response Recorded Date/ Time Living Will Yes March 03 10:32am Power of Gumming Machine Operator Yes March 03, 2021 10:32am Advance Directive Response Recorded Date/ Time Living Will Yes August 21, 2021 2:54pm Power of Gumming Machine Operator Yes August 21 2:54pm Advance Directive Response Recorded Date/ Time Name of Medical Power of Gumming Machine Operator Kim corcoran August 21, 2021 2:54pm Living Will Yes August 21, 2021 2:54pm Power of Gumming Machine Operator Yes August 21 2:54pm Advance Directive Response Recorded Date/ Time Living Will Yes August 21, 2021 1:54pm Power of Gumming Machine Operator Yes August 21 2 1:54pm Advance Directive Response Recorded Date/ Time Name of Medical Power of Gumming Machine Operator Kim Corcoran July 06, 2022 2:53pm Living Will Yes July 06, 2 023 2:53pm Power of Gumming Machine Operator Yes July 06, 2022 2:53pm Advance Directive Response Recorded Date/ Time Name of Medical Power of Gumming Machine Operator Kim Scobel July 06, 2022 2:53pm Living Will No July 09, 2 023 3:02pm Power of Gumming Machine Operator No July 09, 2022 3:02pm Advance Directive Response Recorded Date/ Time Name of Medical Power of Gumming Machine Operator Kim Scobel July 06, 2022 2:53pm Name of Medical Power of Gumming Machine Operator lo calero July 09, 2022 5:53pm Living Will Yes July 09, 2 023 5:53pm Power of Gumming Machine Operator Yes July 09, 2022 5:53pm Advance Directive Response Recorded Date/ Time Name of Medical Power of Gumming Machine Operator Kim Scobel July 06, 2022 3:53pm Name of Medical Power of Gumming Machine Operator lo calero July 09, 2022 6:53pm Living Will Yes July 09, 023 6:53pm Power of Gumming Machine Operator Yes July 09, 2022 6:53pm Advance Directive Response Recorded Date/ Time Name of Medical Power of Gumming Machine Operator Kim Dianaobel July 06, 2022 3:53pm Name of Medical Power of Gumming Machine Operator lo calero July 09, 2022 6:53pm Name of Medical Power of Gumming Machine Operator sister August 11, 2022 3:54pm Living Will Yes August 11, 2022 3:54pm Power of Gumming Machine Operator Yes August 11 3:54pm Advance Directive Response Recorded Date/ Time Name of Medical Power of Gumming Machine Operator Kim Dianaobel July 06, 2022 3:53pm Name of Medical Power of Gumming Machine Operator lo calero July 09, 2022 6:53pm Name of Medical Power of Gumming Machine Operator kim corcoran-s ister August 12, 2022 12:31am Living Will Yes August 12, 2022 12:31am Power of Gumming Machine Operator Yes August 12 12:31am Advance Directive Response Recorded Date/ Time Name of Medical Power of Gumming Machine Operator Kim Dianaobel July 06, 2022 3:53pm Name of Medical Power of Gumming Machine Operator lo sappggins July 09, 2022 6:53pm Name of Medical Power of Gumming Machine Operator kim dianaobel-s ister August 12, 2022 12:31am Name of Medical Power of Gumming Machine Operator KIM DIANAOBEL September 06, 2022 12:54pm Living Will Yes September 06, 2022 12:54pm Power of Gumming Machine Operator Yes September 06 12:54pm Advance Directive Response Recorded Date/ Time Name of Medical Power of Gumming Machine Operator Kim Dianaobel July 06, 2022 3:53pm Name of Medical Power of Gumming Machine Operator lo calero July 09, 2022 6:53pm Name of Medical Power of Gumming Machine Operator kim dianaobel-s ister August 12, 2022 12:31am Name of Medical Power of Gumming Machine Operator KIM DIANAOBEL September 06, 2022 12:54pm Name of Medical Power of Gumming Machine Operator KIM/ September 09, 2022 2:44pm Living Will Yes September 09, 2022 2:44pm Power of Gumming Machine Operator Yes September 09 2:44pm Advance Directive Response Recorded Date/ Time Name of Medical Power of Gumming Machine Operator Kim Dianaobel July 06, 2022 3:53pm Name of Medical Power of Gumming Machine Operator lo calero July 09, 2022 6:53pm Name of Medical Power of Gumming Machine Operator kim dianaobel-s ister August 12, 2022 12:31am Name of Medical Power of Gumming Machine Operator KIM SCOBEL September 06, 2022 12:54pm Name of Medical Power of Gumming Machine Operator Lit Scovel September 09, 2022 6:22pm Living Will Yes September 09, 2022 6:22pm Power of Gumming Machine Operator Yes September 09 6:22pm Advance Directive Response Recorded Date/ Time Name of Medical Power of Gumming Machine Operator kim dianaobel-s ister August 12, 2022 12:31am Name of Medical Power of Gumming Machine Operator KIM SCOBEL September 06, 2022 12:54pm Name of Medical Power of Gumming Machine Operator Lit Scovel September 09, 2022 6:22pm Living Will Yes September 09, 2022 6:22pm Power of Gumming Machine Operator Yes September 09 6:22pm Advance Directive Response Recorded Date/ Time Living Will Yes September 09, 2022 6:22pm Power of Gumming Machine Operator Yes September 09 6:22pm Advance Directive Response Recorded Date/ Time Name of Medical Power of Gumming Machine Operator . April 07, 2023 2:37pm Living Will Yes April 07 2:37pm Power of Gumming Machine Operator Yes April 07, 2023 2:37pm Advance Directive Response Recorded Date/ Time Living Will Yes May 30 3:13pm Power of Gumming Machine Operator Yes May 30, 2023 3:13pm Name of Medical Power of Gumming Machine Operator . April 07, 2023 2:37pm Advance Directive Response Recorded Date/ Time Living Will Yes May 30 4:13pm Power of Gumming Machine Operator Yes May 30, 2023 4:13pm Advance Directive Response Recorded Date/ Time Do you have a Healthcare Power of Gumming Machine Operator? Yes October 02, 2024 6:06pm Assessments There may be information available, but it has not been provided by the sender. Review of System There may be information available, but it has not been provided by the sender. Family History No Family History Records Found Relationship Condition Age at Onset Recorded Date/T saulo father Diabetes mellitus Unknown Hypertension Unknown High blood cholesterol Unknown Cardiac disease Unknown Malignant melanoma Unknown Relationship Condition Age at Onset Recorded Date/T saulo father Diabetes mellitus Unknown High blood cholesterol Unknown Cardiac disease Unknown Malignant melanoma Unknown Hypertension Unknown mother Heart disease Unknown brother Acquired immunodeficiency syndrome Unknow n History of Present Illness There may be information available, but it has not been provided by the sender. Summary Purpose Chief Complaint and Reason for Visit Chief Complaint JAIL LABWORK JAIL LABWORK JAIL LABWORK JAIL LABWORK JAIL BLOOD WORK LAB WORK JAIL LABWORK JAIL LABWORK JAIL LABWORK JAIL LABWORK JAIL LABWORK JAIL LABWORK JAIL LABWORK JAIL LABWORK JAIL LAB WORK JAIL LABWORK JAIL LABWORK JAIL LABWORK JAIL LAB WORK JAIL LABWORK JAIL LAB WORK Chief Complaint JAIL LABWORK JAIL LABWORK JAIL LABWORK JAIL LABWORK JAIL BLOOD WORK LAB WORK JAIL LABWORK JAIL LABWORK JAIL LABWORK JAIL LABWORK JAIL LABWORK JAIL LABWORK JAIL LABWORK JAIL LABWORK JAIL LAB WORK JAIL LABWORK JAIL LABWORK JAIL LABWORK JAIL LAB WORK JAIL LABWORK JAIL LAB WORK LOWER GI BLEED Reason for Visit Acute GI bleeding Acute UTI Lower GI bleed Weakness Chief Complaint JAIL LABWORK JAIL LABWORK JAIL LABWORK JAIL LABWORK JAIL BLOOD WORK LAB WORK JAIL LABWORK JAIL LABWORK JAIL LABWORK JAIL LABWORK JAIL LABWORK JAIL LABWORK JAIL LABWORK JAIL LABWORK JAIL LAB WORK JAIL LABWORK JAIL LABWORK JAIL LABWORK JAIL LAB WORK JAIL LABWORK JAIL LAB WORK LOWER GI BLEED LOWER GI BLEED LOWER GI BLEED Reason for Visit Acute GI bleeding Acute UTI Lower GI bleed Weakness Chief Complaint JAIL LABWORK JAIL LABWORK JAIL LABWORK JAIL LABWORK JAIL LABWORK JAIL LABWORK JAIL LABWORK JAIL LABWORK JAIL LAB WORK JAIL LABWORK JAIL LABWORK JAIL LABWORK JAIL LAB WORK JAIL LABWORK JAIL LAB WORK LOWER GI BLEED LOWER GI BLEED LOWER GI BLEED JAIL LAB WORK LABWORK JAIL LABWORK Reason for Visit Acute GI bleeding Acute UTI Lower GI bleed Chief Complaint JAIL LABWORK JAIL LABWORK JAIL LABWORK JAIL LABWORK JAIL LABWORK JAIL LAB WORK JAIL LABWORK JAIL LABWORK JAIL LABWORK JAIL LAB WORK JAIL LABWORK JAIL LAB WORK LOWER GI BLEED LOWER GI BLEED LOWER GI BLEED JAIL LAB WORK LABWORK JAIL LABWORK Reason for Visit Acute GI bleeding Acute UTI Lower GI bleed Chief Complaint JAIL LABWORK JAIL LABWORK JAIL LAB WORK JAIL LABWORK JAIL LABWORK JAIL LABWORK JAIL LAB WORK JAIL LABWORK JAIL LAB WORK LOWER GI BLEED LOWER GI BLEED LOWER GI BLEED JAIL LAB WORK LABWORK JAIL LABWORK Reason for Visit Acute GI bleeding Acute UTI Lower GI bleed Chief Complaint JAIL LAB WOR K LOWER GI BLEED LOWER GI BLEED LOWER GI BLEED JAIL LAB WORK LABWORK JAIL LABWORK CHECK UP Reason for Visit Acute GI bleeding Acute UTI Lower GI bleed Burn injury of skin of finger Closed fracture of right elbow Osteoporosis Type II diabetes mellitus Chief Complaint CHECK UP 3 M FU Reason for Visit Burn injury of skin of finger Closed fracture of right elbow Osteoporosis Type II diabetes mellitus Flu vaccine need Essential hypertension Osteoporosis Type II diabetes mellitus Urinary incontinence, overflow Chief Complaint 3 M FU 3 M FU Reason for Visit Flu vaccine need Essential hypertension Osteoporosis Type II diabetes mellitus Urinary incontinence, overflow Health care maintenance Essential hypertension Type II diabetes mellitus Urinary incontinence, overflow Chief Complaint 3 M FU INR CELLULITIS Reason for Visit Health care [facility] Essential hypertension Type II diabetes mellitus Urinary incontinence, overflow Chief Complaint 3 M FU INR CELLULITIS FINGER WOUND,BACTEREMIA,CRISTIAN,LACTIC ACIDOSIS FINGER WOUND,BACTEREMIA,CRISTIAN,LACTIC ACIDOSIS Reason for Visit Health care [facility] Essential hypertension Type II diabetes mellitus Urinary incontinence, overflow Acute kidney injury Bacteremia Cellulitis of right middle finger Finger infection Chief Complaint 3 M FU INR CELLULITIS FINGER WOUND,BACTEREMIA,CRISTIAN,LACTIC ACIDOSIS FINGER WOUND,BACTEREMIA,CRISTIAN,LACTIC ACIDOSIS FINGER WOUND,BACTEREMIA,CRISTIAN,LACTIC ACIDOSIS FINGER WOUND,BACTEREMIA,CRISTIAN,LACTIC ACIDOSIS FINGER WOUND,BACTEREMIA,CRISTIAN,LACTIC ACIDOSIS FINGER WOUND,BACTEREMIA,CRISTIAN,LACTIC ACIDOSIS FINGER WOUND,BACTEREMIA,CRISTIAN,LACTIC ACIDOSIS FINGER WOUND,BACTEREMIA,CRISTIAN,LACTIC ACIDOSIS Reason for Visit Health care [facility] Essential hypertension Type II diabetes mellitus Urinary incontinence, overflow Abscess of right middle finger Acute kidney injury Bacteremia Cellulitis of right middle finger Finger infection MRSA infection Diabetes Former smoker retirement (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 [id number] 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 Chief Complaint 3 M FU INR CELLULITIS FINGER WOUND,BACTEREMIA,CRISTIAN,LACTIC ACIDOSIS FINGER WOUND,BACTEREMIA,CRISTIAN,LACTIC ACIDOSIS RHYTHM CHANGE FINGER WOUND,BACTEREMIA,CRISTIAN,LACTIC ACIDOSIS FINGER WOUND,BACTEREMIA,CRISTIAN,LACTIC ACIDOSIS FINGER WOUND,BACTEREMIA,CRISTIAN,LACTIC ACIDOSIS FINGER WOUND,BACTEREMIA,CRISTIAN,LACTIC ACIDOSIS FINGER WOUND,BACTEREMIA,CRISTIAN,LACTIC ACIDOSIS FINGER WOUND,BACTEREMIA,CRISTIAN,LACTIC ACIDOSIS FINGER WOUND,BACTEREMIA,CRISTIAN,LACTIC ACIDOSIS FINGER WOUND,BACTEREMIA,CRISTIAN,LACTIC ACIDOSIS FINGER WOUND,BACTEREMIA,CRISTIAN,LACTIC ACIDOSIS activase x1 to picc line wound [facility] FU/INR Reason for Visit Health care [facility] Essential hypertension Type II diabetes mellitus Urinary incontinence, overflow Abscess of right middle finger MRSA infection 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 Osteomyelitis of finger of right hand Cerumen impaction 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 Osteomyelitis of finger of right hand Chief Complaint 3 M FU INR CELLULITIS FINGER WOUND,BACTEREMIA,CRISTIAN,LACTIC ACIDOSIS FINGER WOUND,BACTEREMIA,CRISTIAN,LACTIC ACIDOSIS RHYTHM CHANGE FINGER WOUND,BACTEREMIA,CRISTIAN,LACTIC ACIDOSIS FINGER WOUND,BACTEREMIA,CRISTIAN,LACTIC ACIDOSIS FINGER WOUND,BACTEREMIA,CRISTIAN,LACTIC ACIDOSIS FINGER WOUND,BACTEREMIA,CRISTIAN,LACTIC ACIDOSIS FINGER WOUND,BACTEREMIA,CRISTIAN,LACTIC ACIDOSIS FINGER WOUND,BACTEREMIA,CRISTIAN,LACTIC ACIDOSIS FINGER WOUND,BACTEREMIA,CRISTIAN,LACTIC ACIDOSIS FINGER WOUND,BACTEREMIA,CRISTIAN,LACTIC ACIDOSIS FINGER WOUND,BACTEREMIA,CRISTIAN,LACTIC ACIDOSIS activase x1 to picc line wound [facility] FU/INR wound [facility] Reason for Visit [facility] Essential hypertension Type II diabetes mellitus Urinary incontinence, overflow Abscess of right middle finger MRSA infection 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 Osteomyelitis of finger of right hand Cerumen impaction 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 Osteomyelitis of finger of right hand MRSA infection Skin ulcer of finger Diabetes retirement (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 Osteomyelitis of finger of right hand Type II diabetes mellitus Chief Complaint 3 M FU INR CELLULITIS FINGER WOUND,BACTEREMIA,CRISTIAN,LACTIC ACIDOSIS FINGER WOUND,BACTEREMIA,CRISTIAN,LACTIC ACIDOSIS RHYTHM CHANGE FINGER WOUND,BACTEREMIA,CRISTIAN,LACTIC ACIDOSIS FINGER WOUND,BACTEREMIA,CRISTIAN,LACTIC ACIDOSIS FINGER WOUND,BACTEREMIA,CRISTIAN,LACTIC ACIDOSIS FINGER WOUND,BACTEREMIA,CRISTIAN,LACTIC ACIDOSIS FINGER WOUND,BACTEREMIA,CRISTIAN,LACTIC ACIDOSIS FINGER WOUND,BACTEREMIA,CRISTIAN,LACTIC ACIDOSIS FINGER WOUND,BACTEREMIA,CRISTIAN,LACTIC ACIDOSIS FINGER WOUND,BACTEREMIA,CRISTIAN,LACTIC ACIDOSIS FINGER WOUND,BACTEREMIA,CRISTIAN,LACTIC ACIDOSIS activase x1 to picc line wound [facility] FU/INR wound [facility] wound wound [facility] WORK A-FIB RVR Reason [facility] Essential hypertension Type II diabetes mellitus Urinary incontinence, overflow Abscess of right middle finger MRSA infection Diabetes retirement (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 Osteomyelitis of finger of right hand Cerumen impaction 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 Osteomyelitis of finger of right hand MRSA infection Skin ulcer of finger Diabetes retirement (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 Osteomyelitis of finger of right hand Type II diabetes mellitus Atrial fib/flutter, transient Atrial flutter with rapid ventricular response Dehydration Diarrhea Hypercoagulable state due to atrial fibrillation MRSA infection Occluded PICC line Paroxysmal atrial fibrillation with RVR Skin ulcer of finger 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 Osteomyelitis of finger of right hand Chief Complaint 3 M FU INR CELLULITIS FINGER WOUND,BACTEREMIA,CRISTIAN,LACTIC ACIDOSIS FINGER WOUND,BACTEREMIA,CRISTIAN,LACTIC ACIDOSIS RHYTHM CHANGE FINGER WOUND,BACTEREMIA,CRISTIAN,LACTIC ACIDOSIS FINGER WOUND,BACTEREMIA,CRISTIAN,LACTIC ACIDOSIS FINGER WOUND,BACTEREMIA,CRISTIAN,LACTIC ACIDOSIS FINGER WOUND,BACTEREMIA,CRISTIAN,LACTIC ACIDOSIS FINGER WOUND,BACTEREMIA,CRISTIAN,LACTIC ACIDOSIS FINGER WOUND,BACTEREMIA,CRISTIAN,LACTIC ACIDOSIS FINGER WOUND,BACTEREMIA,CRISTIAN,LACTIC ACIDOSIS FINGER WOUND,BACTEREMIA,CRISTIAN,LACTIC ACIDOSIS FINGER WOUND,BACTEREMIA,CRISTIAN,LACTIC ACIDOSIS activase x1 to picc line wound [facility] FU/INR wound [facility] wound wound [facility] WORK A-FIB RVR A-FIB RVR Reason for Visit [facility] Essential hypertension Type II diabetes mellitus Urinary incontinence, overflow Abscess of right middle finger MRSA infection Diabetes retirement (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 Osteomyelitis of finger of right hand Cerumen impaction retirement (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 Osteomyelitis of finger of right hand MRSA infection Skin ulcer of finger 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 Osteomyelitis of finger of right hand Type II diabetes mellitus Atrial fib/flutter, transient Atrial flutter with rapid ventricular response Dehydration Diarrhea Hypercoagulable state due to atrial fibrillation MRSA infection Occluded PICC line Paroxysmal atrial fibrillation with RVR Skin ulcer of finger 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 Osteomyelitis of finger of right hand Chief Complaint 3 M FU INR CELLULITIS FINGER WOUND,BACTEREMIA,CRISTIAN,LACTIC ACIDOSIS FINGER WOUND,BACTEREMIA,CRISTIAN,LACTIC ACIDOSIS RHYTHM CHANGE FINGER WOUND,BACTEREMIA,CRISTIAN,LACTIC ACIDOSIS FINGER WOUND,BACTEREMIA,CRISTIAN,LACTIC ACIDOSIS FINGER WOUND,BACTEREMIA,CRISTIAN,LACTIC ACIDOSIS FINGER WOUND,BACTEREMIA,CRISTIAN,LACTIC ACIDOSIS FINGER WOUND,BACTEREMIA,CRISTIAN,LACTIC ACIDOSIS FINGER WOUND,BACTEREMIA,CRISTIAN,LACTIC ACIDOSIS FINGER WOUND,BACTEREMIA,CRISTIAN,LACTIC ACIDOSIS FINGER WOUND,BACTEREMIA,CRISTIAN,LACTIC ACIDOSIS FINGER WOUND,BACTEREMIA,CRISTIAN,LACTIC ACIDOSIS activase x1 to picc line wound [facility] FU/INR wound [facility] wound wound [facility] WORK A-FIB RVR A-FIB RVR A-FIB RVR A-FIB RVR A-FIB RVR Reason for Visit [facility] Essential hypertension Type II diabetes mellitus Urinary incontinence, overflow Abscess of right middle finger MRSA infection 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 Osteomyelitis of finger of right hand Cerumen impaction retirement (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 Osteomyelitis of finger of right hand MRSA infection Skin ulcer of finger Diabetes retirement (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 Osteomyelitis of finger of right hand Type II diabetes mellitus Atrial fib/flutter, transient Atrial flutter with rapid ventricular response Dehydration Diarrhea Hypercoagulable state due to atrial fibrillation MRSA infection Occluded PICC line Paroxysmal atrial fibrillation with RVR Skin ulcer of finger 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 Osteomyelitis of finger of right hand Chief Complaint 3 M FU INR CELLULITIS FINGER WOUND,BACTEREMIA,CRISTIAN,LACTIC ACIDOSIS FINGER WOUND,BACTEREMIA,CRISTIAN,LACTIC ACIDOSIS RHYTHM CHANGE FINGER WOUND,BACTEREMIA,CRISTIAN,LACTIC ACIDOSIS FINGER WOUND,BACTEREMIA,CRISTIAN,LACTIC ACIDOSIS FINGER WOUND,BACTEREMIA,CRISTIAN,LACTIC ACIDOSIS FINGER WOUND,BACTEREMIA,CRISTIAN,LACTIC ACIDOSIS FINGER WOUND,BACTEREMIA,CRISTIAN,LACTIC ACIDOSIS FINGER WOUND,BACTEREMIA,CRISTIAN,LACTIC ACIDOSIS FINGER WOUND,BACTEREMIA,CRISTIAN,LACTIC ACIDOSIS FINGER WOUND,BACTEREMIA,CRISTIAN,LACTIC ACIDOSIS FINGER WOUND,BACTEREMIA,CRISTIAN,LACTIC ACIDOSIS activase x1 to picc line wound [facility] FU/INR wound [facility] wound wound [facility] WORK A-FIB RVR A-FIB RVR A-FIB RVR A-FIB RVR A-FIB RVR A-FIB RVR A-FIB RVR A-FIB RVR [facility] Essential hypertension Type II diabetes mellitus Urinary incontinence, overflow Abscess of right middle finger MRSA infection 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 Osteomyelitis of finger of right hand Cerumen impaction 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 Osteomyelitis of finger of right hand MRSA infection Skin ulcer of finger Diabetes retirement (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 Osteomyelitis of finger of right hand Type II diabetes mellitus Atrial fib/flutter, transient Atrial flutter with rapid ventricular response Dehydration Diarrhea Hypercoagulable state due to atrial fibrillation MRSA infection Occluded PICC line Paroxysmal atrial fibrillation with RVR Skin ulcer of finger 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 Osteomyelitis of finger of right hand Chief Complaint 3 M FU INR CELLULITIS FINGER WOUND,BACTEREMIA,CRISTIAN,LACTIC ACIDOSIS FINGER WOUND,BACTEREMIA,CRISTIAN,LACTIC ACIDOSIS RHYTHM CHANGE FINGER WOUND,BACTEREMIA,CRISTIAN,LACTIC ACIDOSIS FINGER WOUND,BACTEREMIA,CRISTIAN,LACTIC ACIDOSIS FINGER WOUND,BACTEREMIA,CRISTIAN,LACTIC ACIDOSIS FINGER WOUND,BACTEREMIA,CRISTIAN,LACTIC ACIDOSIS FINGER WOUND,BACTEREMIA,CRISTIAN,LACTIC ACIDOSIS FINGER WOUND,BACTEREMIA,CRISTIAN,LACTIC ACIDOSIS FINGER WOUND,BACTEREMIA,CRISTIAN,LACTIC ACIDOSIS FINGER WOUND,BACTEREMIA,CRISTIAN,LACTIC ACIDOSIS FINGER WOUND,BACTEREMIA,CRISTIAN,LACTIC ACIDOSIS activase x1 to picc line wound [facility] FU/INR wound [facility] wound wound [facility] WORK A-FIB RVR A-FIB RVR EKG A-FIB RVR A-FIB RVR A-FIB RVR A-FIB RVR A-FIB RVR A-FIB RVR wound 3 m fu INR wound high heart rate wound Reason for Visit [facility] Essential hypertension Type II diabetes mellitus Urinary incontinence, overflow Abscess of right middle finger MRSA infection Osteomyelitis of finger of right hand Cerumen impaction Osteomyelitis of finger of right hand MRSA infection Osteomyelitis of finger of right hand Type II diabetes mellitus Skin ulcer of finger MRSA infection Osteomyelitis of finger of right hand Atrial flutter with rapid ventricular response Dehydration Diarrhea Occluded PICC line Skin ulcer of finger Tachycardia Chronic back pain Essential hypertension Type II diabetes mellitus MRSA infection Osteomyelitis of finger of right hand Type II diabetes mellitus Skin ulcer of finger Chief Complaint 3 M FU INR CELLULITIS FINGER WOUND,BACTEREMIA,CRISTIAN,LACTIC ACIDOSIS FINGER WOUND,BACTEREMIA,CRISTIAN,LACTIC ACIDOSIS RHYTHM CHANGE FINGER WOUND,BACTEREMIA,CRISTIAN,LACTIC ACIDOSIS FINGER WOUND,BACTEREMIA,CRISTIAN,LACTIC ACIDOSIS FINGER WOUND,BACTEREMIA,CRISTIAN,LACTIC ACIDOSIS FINGER WOUND,BACTEREMIA,CRISTIAN,LACTIC ACIDOSIS FINGER WOUND,BACTEREMIA,CRISTIAN,LACTIC ACIDOSIS FINGER WOUND,BACTEREMIA,CRISTIAN,LACTIC ACIDOSIS FINGER WOUND,BACTEREMIA,CRISTIAN,LACTIC ACIDOSIS FINGER WOUND,BACTEREMIA,CRISTIAN,LACTIC ACIDOSIS FINGER WOUND,BACTEREMIA,CRISTIAN,LACTIC ACIDOSIS activase x1 to picc line wound [facility] FU/INR wound [facility] wound wound [facility] WORK A-FIB RVR A-FIB RVR EKG A-FIB RVR A-FIB RVR A-FIB RVR A-FIB RVR A-FIB RVR A-FIB RVR wound 3 m fu INR wound high heart rate wound SEPSIS/ACUTE HYPOXIC RESPIRATORY FAILURE Reason for Visit [facility] Essential hypertension Type II diabetes mellitus Urinary incontinence, overflow Abscess of right middle finger MRSA infection Osteomyelitis of finger of right hand Cerumen impaction Osteomyelitis of finger of right hand MRSA infection Osteomyelitis of finger of right hand Type II diabetes mellitus Skin ulcer of finger MRSA infection Osteomyelitis of finger of right hand Atrial flutter with rapid ventricular response Dehydration Diarrhea Occluded PICC line Skin ulcer of finger Tachycardia Chronic back pain Essential hypertension Type II diabetes mellitus MRSA infection Osteomyelitis of finger of right hand Type II diabetes mellitus Skin ulcer of finger Acute UTI Elevated brain natriuretic peptide (BNP) level Lactic acidosis Leukocytosis Pneumonia Sepsis Subtherapeutic international normalized ratio (INR) Acute and chronic respiratory failure with hypoxia Chief Complaint 3 M FU INR CELLULITIS FINGER WOUND,BACTEREMIA,CRISTIAN,LACTIC ACIDOSIS FINGER WOUND,BACTEREMIA,CRISTIAN,LACTIC ACIDOSIS RHYTHM CHANGE FINGER WOUND,BACTEREMIA,CRISTIAN,LACTIC ACIDOSIS FINGER WOUND,BACTEREMIA,CRISTIAN,LACTIC ACIDOSIS FINGER WOUND,BACTEREMIA,CRISTIAN,LACTIC ACIDOSIS FINGER WOUND,BACTEREMIA,CRISTIAN,LACTIC ACIDOSIS FINGER WOUND,BACTEREMIA,CRISTIAN,LACTIC ACIDOSIS FINGER WOUND,BACTEREMIA,CRISTIAN,LACTIC ACIDOSIS FINGER WOUND,BACTEREMIA,CRISTIAN,LACTIC ACIDOSIS FINGER WOUND,BACTEREMIA,CRISTIAN,LACTIC ACIDOSIS FINGER WOUND,BACTEREMIA,CRISTIAN,LACTIC ACIDOSIS activase x1 to picc line wound [facility] FU/INR wound [facility] wound wound [facility]RAW [facility] WORK A-FIB RVR A-FIB RVR EKG A-FIB RVR A-FIB RVR A-FIB RVR A-FIB RVR A-FIB RVR A-FIB RVR wound 3 m fu INR wound high heart rate wound SEPSIS/ACUTE HYPOXIC RESPIRATORY FAILURE SEPSIS/ACUTE HYPOXIC RESPIRATORY FAILURE SEPSIS/ACUTE HYPOXIC RESPIRATORY FAILURE SEPSIS/ACUTE HYPOXIC RESPIRATORY FAILURE Reason for Visit [facility] Essential hypertension Type II diabetes mellitus Urinary incontinence, overflow Abscess of right middle finger MRSA infection Osteomyelitis of finger of right hand Cerumen impaction Osteomyelitis of finger of right hand MRSA infection Osteomyelitis of finger of right hand Type II diabetes mellitus Skin ulcer of finger MRSA infection Osteomyelitis of finger of right hand Atrial flutter with rapid ventricular response Dehydration Diarrhea Occluded PICC line Skin ulcer of finger Tachycardia Chronic back pain Essential hypertension Type II diabetes mellitus MRSA infection Osteomyelitis of finger of right hand Type II diabetes mellitus Skin ulcer of finger Acute UTI Elevated brain natriuretic peptide (BNP) level Lactic acidosis Leukocytosis Pneumonia Sepsis Subtherapeutic international normalized ratio (INR) Acute and chronic respiratory failure with hypoxia Chief Complaint 3 M FU INR CELLULITIS FINGER WOUND,BACTEREMIA,CRISTIAN,LACTIC ACIDOSIS FINGER WOUND,BACTEREMIA,CRISTIAN,LACTIC ACIDOSIS RHYTHM CHANGE FINGER WOUND,BACTEREMIA,CRISTIAN,LACTIC ACIDOSIS FINGER WOUND,BACTEREMIA,CRISTIAN,LACTIC ACIDOSIS FINGER WOUND,BACTEREMIA,CRISTIAN,LACTIC ACIDOSIS FINGER WOUND,BACTEREMIA,CRISTIAN,LACTIC ACIDOSIS FINGER WOUND,BACTEREMIA,CRISTIAN,LACTIC ACIDOSIS FINGER WOUND,BACTEREMIA,CRISTIAN,LACTIC ACIDOSIS FINGER WOUND,BACTEREMIA,CRISTIAN,LACTIC ACIDOSIS FINGER WOUND,BACTEREMIA,CRISTIAN,LACTIC ACIDOSIS FINGER WOUND,BACTEREMIA,CRISTIAN,LACTIC ACIDOSIS activase x1 to picc line wound [facility] FU/INR wound [facility] wound wound HOME DRAW LAB WORK A-FIB RVR A-FIB RVR EKG A-FIB RVR A-FIB RVR A-FIB RVR A-FIB RVR A-FIB RVR A-FIB RVR wound 3 m fu INR wound high heart rate wound SEPSIS/ACUTE HYPOXIC RESPIRATORY FAILURE SEPSIS/ACUTE HYPOXIC RESPIRATORY FAILURE SEPSIS/ACUTE HYPOXIC RESPIRATORY FAILURE SEPSIS/ACUTE HYPOXIC RESPIRATORY FAILURE SEPSIS/ACUTE HYPOXIC RESPIRATORY FAILURE Reason for [facility] Essential hypertension Type II diabetes mellitus Urinary incontinence, overflow Abscess of right middle finger MRSA infection Osteomyelitis of finger of right hand Cerumen impaction Osteomyelitis of finger of right hand MRSA infection Osteomyelitis of finger of right hand Type II diabetes mellitus Skin ulcer of finger MRSA infection Osteomyelitis of finger of right hand Atrial flutter with rapid ventricular response Dehydration Diarrhea Occluded PICC line Skin ulcer of finger Tachycardia Chronic back pain Essential hypertension Type II diabetes mellitus MRSA infection Osteomyelitis of finger of right hand Type II diabetes mellitus Skin ulcer of finger Acute UTI Elevated brain natriuretic peptide (BNP) level Lactic acidosis Leukocytosis Pneumonia Sepsis Subtherapeutic international normalized ratio (INR) Acute and chronic respiratory failure with hypoxia Chief Complaint 3 M FU INR CELLULITIS FINGER WOUND,BACTEREMIA,CRISTIAN,LACTIC ACIDOSIS FINGER WOUND,BACTEREMIA,CRISTIAN,LACTIC ACIDOSIS RHYTHM CHANGE FINGER WOUND,BACTEREMIA,CRISTIAN,LACTIC ACIDOSIS FINGER WOUND,BACTEREMIA,CRISTIAN,LACTIC ACIDOSIS FINGER WOUND,BACTEREMIA,CRISTIAN,LACTIC ACIDOSIS FINGER WOUND,BACTEREMIA,CRISTIAN,LACTIC ACIDOSIS FINGER WOUND,BACTEREMIA,CRISTIAN,LACTIC ACIDOSIS FINGER WOUND,BACTEREMIA,CRISTIAN,LACTIC ACIDOSIS FINGER WOUND,BACTEREMIA,CRISTIAN,LACTIC ACIDOSIS FINGER WOUND,BACTEREMIA,CRISTIAN,LACTIC ACIDOSIS FINGER WOUND,BACTEREMIA,CRISTIAN,LACTIC ACIDOSIS activase x1 to picc line wound [facility] FU/INR wound [facility] wound wound HOME DRAW LAB WORK A-FIB RVR A-FIB RVR EKG A-FIB RVR A-FIB RVR A-FIB RVR A-FIB RVR A-FIB RVR A-FIB RVR wound 3 m fu INR wound high heart rate wound SEPSIS/ACUTE HYPOXIC RESPIRATORY FAILURE SEPSIS/ACUTE HYPOXIC RESPIRATORY FAILURE SEPSIS/ACUTE HYPOXIC RESPIRATORY FAILURE Atrial fibrillation SEPSIS/ACUTE HYPOXIC RESPIRATORY FAILURE SEPSIS/ACUTE HYPOXIC RESPIRATORY FAILURE SEPSIS/ACUTE HYPOXIC RESPIRATORY FAILURE SEPSIS/ACUTE HYPOXIC RESPIRATORY FAILURE SEPSIS/ACUTE HYPOXIC RESPIRATORY FAILURE SEPSIS/ACUTE HYPOXIC RESPIRATORY FAILURE [facility] Ess[facility] Type II diabetes mellitus Urinary incontinence, overflow Abscess of right middle finger MRSA infection Osteomyelitis of finger of right hand Cerumen impaction Osteomyelitis of finger of right hand MRSA infection Osteomyelitis of finger of right hand Type II diabetes mellitus Skin ulcer of finger MRSA infection Osteomyelitis of finger of right hand Atrial flutter with rapid ventricular response Dehydration Diarrhea Occluded PICC line Skin ulcer of finger Tachycardia Chronic back pain Essential hypertension Type II diabetes mellitus MRSA infection Osteomyelitis of finger of right hand Type II diabetes mellitus Skin ulcer of finger Acute on chronic heart failure with preserved ejection fraction (HFpEF) Diabetes mellitus Elevated brain natriuretic peptide (BNP) level Lactic acidosis Leukocytosis Pneumonia Sepsis Subtherapeutic international normalized ratio (INR) Urinary tract infection Acute and chronic respiratory failure with hypoxia CVA (cerebral vascular accident) Hypertension Paroxysmal atrial fibrillation Chief Complaint INR CELLULITIS FINGER WOUND,BACTEREMIA,CRISTIAN,LACTIC ACIDOSIS FINGER WOUND,BACTEREMIA,CRISTIAN,LACTIC ACIDOSIS RHYTHM CHANGE FINGER WOUND,BACTEREMIA,CRISTIAN,LACTIC ACIDOSIS FINGER WOUND,BACTEREMIA,CRISTIAN,LACTIC ACIDOSIS FINGER WOUND,BACTEREMIA,CRISTIAN,LACTIC ACIDOSIS FINGER WOUND,BACTEREMIA,CRISTIAN,LACTIC ACIDOSIS FINGER WOUND,BACTEREMIA,CRISTIAN,LACTIC ACIDOSIS FINGER WOUND,BACTEREMIA,CRISTIAN,LACTIC ACIDOSIS FINGER WOUND,BACTEREMIA,CRISTIAN,LACTIC ACIDOSIS FINGER WOUND,BACTEREMIA,CRISTIAN,LACTIC ACIDOSIS FINGER WOUND,BACTEREMIA,CRISTIAN,LACTIC ACIDOSIS activase x1 to picc line wound [facility] FU/INR wound [facility] wound wound HOME DRAW LAB WORK A-FIB RVR A-FIB RVR EKG A-FIB RVR A-FIB RVR A-FIB RVR A-FIB RVR A-FIB RVR A-FIB RVR wound 3 m fu INR wound high heart rate wound SEPSIS/ACUTE HYPOXIC RESPIRATORY FAILURE SEPSIS/ACUTE HYPOXIC RESPIRATORY FAILURE SEPSIS/ACUTE HYPOXIC RESPIRATORY FAILURE Atrial fibrillation SEPSIS/ACUTE HYPOXIC RESPIRATORY FAILURE SEPSIS/ACUTE HYPOXIC RESPIRATORY FAILURE SEPSIS/ACUTE HYPOXIC RESPIRATORY FAILURE SEPSIS/ACUTE HYPOXIC RESPIRATORY FAILURE SEPSIS/ACUTE HYPOXIC RESPIRATORY FAILURE SEPSIS/ACUTE HYPOXIC RESPIRATORY FAILURE SEPSIS/ACUTE HYPOXIC RESPIRATORY FAILURE wound wound [facility] fu Reason for Visit Abscess of right mid dle finger MRSA infection Osteomyelitis of finger of right hand Cerumen impaction Osteomyelitis of finger of right hand MRSA infection Osteomyelitis of finger of right hand Type II diabetes mellitus Skin ulcer of finger MRSA infection Osteomyelitis of finger of right hand Atrial flutter with rapid ventricular response Dehydration Diarrhea Occluded PICC line Skin ulcer of finger Tachycardia Chronic back pain Essential hypertension Type II diabetes mellitus MRSA infection Osteomyelitis of finger of right hand Type II diabetes mellitus Skin ulcer of finger Acute and chronic respiratory failure with hypoxia Acute on chronic heart failure with preserved ejection fraction (HFpEF) Lactic acidosis Leukocytosis Pneumonia Sepsis Urinary tract infection MRSA infection Osteomyelitis of finger of right hand Type II diabetes mellitus Skin ulcer of finger Intertrigo Paroxysmal A-fib Acute on chronic heart failure CKD (chronic kidney disease) Respiratory failure Chief Complaint INR CELLULITIS FINGER WOUND,BACTEREMIA,CRISTIAN,LACTIC ACIDOSIS FINGER WOUND,BACTEREMIA,CRISTIAN,LACTIC ACIDOSIS RHYTHM CHANGE FINGER WOUND,BACTEREMIA,CRISTIAN,LACTIC ACIDOSIS FINGER WOUND,BACTEREMIA,CRISTIAN,LACTIC ACIDOSIS FINGER WOUND,BACTEREMIA,CRISTIAN,LACTIC ACIDOSIS FINGER WOUND,BACTEREMIA,CRISTIAN,LACTIC ACIDOSIS FINGER WOUND,BACTEREMIA,CRISTIAN,LACTIC ACIDOSIS FINGER WOUND,BACTEREMIA,CRISTIAN,LACTIC ACIDOSIS FINGER WOUND,BACTEREMIA,CRISTIAN,LACTIC ACIDOSIS FINGER WOUND,BACTEREMIA,CRISTIAN,LACTIC ACIDOSIS FINGER WOUND,BACTEREMIA,CRISTIAN,LACTIC ACIDOSIS activase x1 to picc line wound [facility] FU/INR wound [facility] wound wound HOME DRAW LAB WORK A-FIB RVR A-FIB RVR EKG A-FIB RVR A-FIB RVR A-FIB RVR A-FIB RVR A-FIB RVR A-FIB RVR wound 3 m fu INR wound high heart rate wound SEPSIS/ACUTE HYPOXIC RESPIRATORY FAILURE SEPSIS/ACUTE HYPOXIC RESPIRATORY FAILURE SEPSIS/ACUTE HYPOXIC RESPIRATORY FAILURE Atrial fibrillation SEPSIS/ACUTE HYPOXIC RESPIRATORY FAILURE SEPSIS/ACUTE HYPOXIC RESPIRATORY FAILURE SEPSIS/ACUTE HYPOXIC RESPIRATORY FAILURE SEPSIS/ACUTE HYPOXIC RESPIRATORY FAILURE SEPSIS/ACUTE HYPOXIC RESPIRATORY FAILURE SEPSIS/ACUTE HYPOXIC RESPIRATORY FAILURE SEPSIS/ACUTE HYPOXIC RESPIRATORY FAILURE wound wound [facility] fu HOME 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 LAB 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 Reason for Visit Abscess of right mid dle finger MRSA infection Osteomyelitis of finger of right hand Cerumen impaction Osteomyelitis of finger of right hand MRSA infection Osteomyelitis of finger of right hand Type II diabetes mellitus Skin ulcer of finger MRSA infection Osteomyelitis of finger of right hand Atrial flutter with rapid ventricular response Dehydration Diarrhea Occluded PICC line Skin ulcer of finger Tachycardia Chronic back pain Essential hypertension Type II diabetes mellitus MRSA infection Osteomyelitis of finger of right hand Type II diabetes mellitus Skin ulcer of finger Acute and chronic respiratory failure with hypoxia Acute on chronic heart failure with preserved ejection fraction (HFpEF) Lactic acidosis Leukocytosis Pneumonia Sepsis Urinary tract infection MRSA infection Osteomyelitis of finger of right hand Type II diabetes mellitus Skin ulcer of finger Intertrigo Paroxysmal A-fib Acute on chronic heart failure CKD (chronic kidney disease) Respiratory failure Chief Complaint CELLULITIS FINGER WOUND,BACTEREMIA,CRISTIAN,LACTIC ACIDOSIS FINGER WOUND,BACTEREMIA,CRISTIAN,LACTIC ACIDOSIS RHYTHM CHANGE FINGER WOUND,BACTEREMIA,CRISTIAN,LACTIC ACIDOSIS FINGER WOUND,BACTEREMIA,CRISTIAN,LACTIC ACIDOSIS FINGER WOUND,BACTEREMIA,CRISTIAN,LACTIC ACIDOSIS FINGER WOUND,BACTEREMIA,CRISTIAN,LACTIC ACIDOSIS FINGER WOUND,BACTEREMIA,CRISTIAN,LACTIC ACIDOSIS FINGER WOUND,BACTEREMIA,CRISTIAN,LACTIC ACIDOSIS FINGER WOUND,BACTEREMIA,CRISTIAN,LACTIC ACIDOSIS FINGER WOUND,BACTEREMIA,CRISTIAN,LACTIC ACIDOSIS FINGER WOUND,BACTEREMIA,CRISTIAN,LACTIC ACIDOSIS activase x1 to picc line wound [facility] FU/INR wound [facility] wound wound HOME DRAW LAB WORK A-FIB RVR A-FIB RVR EKG A-FIB RVR A-FIB RVR A-FIB RVR A-FIB RVR A-FIB RVR A-FIB RVR wound 3 m fu INR wound high heart rate wound SEPSIS/ACUTE HYPOXIC RESPIRATORY FAILURE SEPSIS/ACUTE HYPOXIC RESPIRATORY FAILURE SEPSIS/ACUTE HYPOXIC RESPIRATORY FAILURE Atrial fibrillation SEPSIS/ACUTE HYPOXIC RESPIRATORY FAILURE SEPSIS/ACUTE HYPOXIC RESPIRATORY FAILURE SEPSIS/ACUTE HYPOXIC RESPIRATORY FAILURE SEPSIS/ACUTE HYPOXIC RESPIRATORY FAILURE SEPSIS/ACUTE HYPOXIC RESPIRATORY FAILURE SEPSIS/ACUTE HYPOXIC RESPIRATORY FAILURE SEPSIS/ACUTE HYPOXIC RESPIRATORY FAILURE wound wound [facility] fu HOME DRAW LAB WORK [facility] fu wound Reason for Visit Abscess of right mid dle finger MRSA infection Osteomyelitis of finger of right hand Cerumen impaction Osteomyelitis of finger of right hand MRSA infection Osteomyelitis of finger of right hand Type II diabetes mellitus Skin ulcer of finger MRSA infection Osteomyelitis of finger of right hand Atrial flutter with rapid ventricular response Dehydration Diarrhea Occluded PICC line Skin ulcer of finger Tachycardia Chronic back pain Essential hypertension Type II diabetes mellitus MRSA infection Osteomyelitis of finger of right hand Type II diabetes mellitus Skin ulcer of finger Acute and chronic respiratory failure with hypoxia Acute on chronic heart failure with preserved ejection fraction (HFpEF) Lactic acidosis Leukocytosis Pneumonia Sepsis Urinary tract infection MRSA infection Osteomyelitis of finger of right hand Type II diabetes mellitus Skin ulcer of finger Intertrigo Acute on chronic heart failure CKD (chronic kidney disease) Paroxysmal A-fib Respiratory failure Anxiety and depression Essential hypertension Paroxysmal A-fib Type II diabetes mellitus Bilateral leg ulcer Chronic anticoagulation Debility Failure to thrive History of amputation of finger of right hand History of back surgery History of carpal tunnel release History of cerebrovascular accident History of hysterectomy History of left elbow replacement Hypertriglyceridemia Obstructive sleep apnea Renal insufficiency Venous insufficiency Acute on chronic heart failure CKD (chronic kidney disease) Essential hypertension Hyperlipidemia Non-rheumatic mitral valve stenosis Nonrheumatic aortic (valve) stenosis Osteoporosis Paroxysmal A-fib Pulmonary hypertension Type II diabetes mellitus Urinary incontinence, overflow Chief Complaint activase x1 to picc line wound [facility] FU/INR wound [facility] wound wound [facility] WORK A-FIB RVR A-FIB RVR EKG A-FIB RVR A-FIB RVR A-FIB RVR A-FIB RVR A-FIB RVR A-FIB RVR wound 3 m fu INR wound high heart rate wound SEPSIS/ACUTE HYPOXIC RESPIRATORY FAILURE SEPSIS/ACUTE HYPOXIC RESPIRATORY FAILURE SEPSIS/ACUTE HYPOXIC RESPIRATORY FAILURE Atrial fibrillation SEPSIS/ACUTE HYPOXIC RESPIRATORY FAILURE SEPSIS/ACUTE HYPOXIC RESPIRATORY FAILURE SEPSIS/ACUTE HYPOXIC RESPIRATORY FAILURE SEPSIS/ACUTE HYPOXIC RESPIRATORY FAILURE SEPSIS/ACUTE HYPOXIC RESPIRATORY FAILURE SEPSIS/ACUTE HYPOXIC RESPIRATORY FAILURE SEPSIS/ACUTE HYPOXIC RESPIRATORY FAILURE wound wound [facility] fu HOME 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 LAB 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 [facility] fu wound S/P [facility] Reason for Visit Cerumen impaction Osteomyelitis of finger of right hand MRSA infection Osteomyelitis of finger of right hand Type II diabetes mellitus Skin ulcer of finger MRSA infection Osteomyelitis of finger of right hand Atrial flutter with rapid ventricular response Dehydration Diarrhea Occluded PICC line Skin ulcer of finger Tachycardia Chronic back pain Essential hypertension Type II diabetes mellitus MRSA infection Osteomyelitis of finger of right hand Type II diabetes mellitus Skin ulcer of finger Acute and chronic respiratory failure with hypoxia Acute on chronic heart failure with preserved ejection fraction (HFpEF) Lactic acidosis Leukocytosis Pneumonia Sepsis Urinary tract infection MRSA infection Osteomyelitis of finger of right hand Type II diabetes mellitus Skin ulcer of finger Intertrigo Acute on chronic heart failure CKD (chronic kidney disease) Paroxysmal A-fib Respiratory failure Anxiety and depression Essential hypertension Paroxysmal A-fib Type II diabetes mellitus Bilateral leg ulcer Chronic anticoagulation Debility Failure to thrive History of amputation of finger of right hand History of back surgery History of carpal tunnel release History of cerebrovascular accident History of hysterectomy History of left elbow replacement Hypertriglyceridemia Obstructive sleep apnea Renal insufficiency Venous insufficiency Acute on chronic heart failure CKD (chronic kidney disease) Essential hypertension Hyperlipidemia Non-rheumatic mitral valve stenosis Nonrheumatic aortic (valve) stenosis Osteoporosis Paroxysmal A-fib Pulmonary hypertension Type II diabetes mellitus Urinary incontinence, overflow Essential hypertension Hyperlipidemia Chief Complaint wound wound [facility] fu HOME DRAW LAB WORK [facility] fu wound S/P [facility] wound wound Reason for Visit MRSA infection Osteomyelitis of finger of right hand Type II diabetes mellitus Skin ulcer of finger Intertrigo Acute on chronic heart failure CKD (chronic kidney disease) Paroxysmal A-fib Respiratory failure Anxiety and depression Essential hypertension Paroxysmal A-fib Type II diabetes mellitus Bilateral leg ulcer Chronic anticoagulation Debility Failure to thrive History of amputation of finger of right hand History of back surgery History of carpal tunnel release History of cerebrovascular accident History of hysterectomy History of left elbow replacement Hypertriglyceridemia Obstructive sleep apnea Renal insufficiency Venous insufficiency Acute on chronic heart failure CKD (chronic kidney disease) Essential hypertension Hyperlipidemia Non-rheumatic mitral valve stenosis Nonrheumatic aortic (valve) stenosis Osteoporosis Paroxysmal A-fib Pulmonary hypertension Type II diabetes mellitus Urinary incontinence, overflow Essential hypertension Hyperlipidemia Bilateral leg ulcer Chronic anticoagulation Debility Failure to thrive History of amputation of finger of right hand History of back surgery History of carpal tunnel release History of cerebrovascular accident History of hysterectomy History of left elbow replacement Hypertriglyceridemia Obstructive sleep apnea Renal insufficiency Venous insufficiency Acute on chronic heart failure CKD (chronic kidney disease) Essential hypertension Hyperlipidemia Non-rheumatic mitral valve stenosis Nonrheumatic aortic (valve) stenosis Osteoporosis Paroxysmal A-fib Pulmonary hypertension Type II diabetes mellitus Urinary incontinence, overflow Bilateral leg ulcer Chronic anticoagulation Debility Failure to thrive History of amputation of finger of right hand History of back surgery History of carpal tunnel release History of cerebrovascular accident History of hysterectomy History of left elbow replacement Hypertriglyceridemia Obstructive sleep apnea Renal insufficiency Venous insufficiency Acute on chronic heart failure CKD (chronic kidney disease) Essential hypertension Hyperlipidemia Non-rheumatic mitral valve stenosis Nonrheumatic aortic (valve) stenosis Osteoporosis Paroxysmal A-fib Pulmonary hypertension Type II diabetes mellitus Urinary incontinence, overflow Chief Complaint wound [facility]WORK [facility] LAB WORK PALPITATIONS Reason for Visit Bilateral leg ulcer Chronic anticoagulation Debility Failure to thrive History of amputation of finger of right hand History of back surgery History of carpal tunnel release History of cerebrovascular accident History of hysterectomy History of left elbow replacement Hypertriglyceridemia Obstructive sleep apnea Renal insufficiency Venous insufficiency Acute on chronic heart failure CKD (chronic kidney disease) Essential hypertension Hyperlipidemia Non-rheumatic mitral valve stenosis Nonrheumatic aortic (valve) stenosis Osteoporosis Paroxysmal A-fib Pulmonary hypertension Type II diabetes mellitus Urinary incontinence, overflow Chief Complaint PALPITATIONS LAB WORK ACUTE WOUND FOLLOW UP, OK PER DR Washburn Retinal ischemia Reason for Visit Abrasion of skin of left lower leg Abrasion of skin of right lower leg Screening-pulmonary TB Chief Complaint ACUTE WOUND FOLLOW U P, [place] PER DR Washburn Retinal ischemia NIGHTTIME O2 RENEWAL Reason for Visit Abrasion of skin of left lower leg Abrasion of skin of right lower leg Screening-pulmonary TB Chief Complaint Admit Date MED FU May 21, 2024 1: 45pm 3 M FU August 20, 2024 10:2 6am TOE- RIGHT FOOT August 20, 2024 11:1 7am Referral Order August 20, 2024 9:15 pm Reason for Visit Admit Date Edema May 21, 2024 1: 45pm Hyperlipidemia May 21, 2024 1: 45pm Arrhythmia May 21, 2024 1: 45pm Essential hypertension May 21, 2024 1:45pm Generalized erosion of teeth May 1:45pm Type II diabetes mellitus May 21, 2 025 1:45pm Diabetic ulcer of toe August 20, 2024 10 :26am Toe ulcer August 20, 2024 10:2 6am Essential hypertension August 20, 2024 1 0:26am Osteoporosis August 20, 2024 10:2 6am Type II diabetes mellitus August 20 10:26am Chief Complaint Admit Date 3 M FU August 20, 2024 10:2 6am TOE- RIGHT FOOT August 20, 2024 11:1 7am Referral Order August 20, 2024 9:15 pm WOUND September 11, 2024 10: 00am acute - fu on pinky toe/PROLIA $350 September 19, 2024 1:02pm Tachycardia a-fib, pt uses [facility] Transport September 24, 2024 1:16pm WOUND October 02, 2024 8:45a m wound check, uti October 02, 2024 4:06p m Reason for Visit Admit Date Diabetic ulcer of toe August 20, 2024 10 :26am Toe ulcer August 20, 2024 10:2 6am Essential hypertension August 20, 2024 1 0:26am Osteoporosis August 20, 2024 10:2 6am Type II diabetes mellitus August 20 10:26am Type 2 diabetes mellitus with diabetic p olyneuropathy September 11, 2024 10:00am Non-pressure chronic ulcer o f left calf with fat layer exposed September 11, 2024 10:00am Non-pressure chronic ulcer o f other part of right foot with fat layer exposed September 11, 2024 10:00am Bilateral leg ulcer September 19, 2024 1:02pm Essential hypertension September 19, 2024 1:0 2pm Osteoporosis September 19, 2024 1:02pm Paroxysmal A-fib September 19, 2024 1:02pm Essential hypertension September 24, 2024 1: 16pm Hyperlipidemia September 24, 2024 1:16p m Paroxysmal atrial fibrillation September 24, 2024 1:16pm Type 2 diabetes mellitus with diabetic p olyneuropathy October 02, 2024 8:45am Non-pressure chronic ulcer o f left calf with fat layer exposed October 02, 2024 8:45am Non-pressure chronic ulcer o f other part of right foot with fat layer exposed October 02, 2024 8:45am Chief Complaint Admit Date 3 M FU August 20, 2024 10:2 6am TOE- RIGHT FOOT August 20, 2024 11:1 7am Referral Order August 20, 2024 9:15 pm WOUND September 11, 2024 10: 00am acute - fu on pinky toe/PROLIA $350 September 19, 2024 1:02pm Tachycardia a-fib, pt uses [facility] Transport September 24, 2024 1:16pm wound check, uti October 02, 2024 4:06p m WOUND October 09, 2024 8:45a m Reason for Visit Admit Date Diabetic ulcer of toe August 20, 2024 10 :26am Toe ulcer August 20, 2024 10:2 6am Essential hypertension August 20, 2024 1 0:26am Osteoporosis August 20, 2024 10:2 6am Type II diabetes mellitus August 20 10:26am Type 2 diabetes mellitus with diabetic p olyneuropathy September 11, 2024 10:00am Non-pressure chronic ulcer o f left calf with fat layer exposed September 11, 2024 10:00am Non-pressure chronic ulcer o f other part of right foot with fat layer exposed September 11, 2024 10:00am Bilateral leg ulcer September 19, 2024 1:02pm Essential hypertension September 19, 2024 1:0 2pm Osteoporosis September 19, 2024 1:02pm Paroxysmal A-fib September 19, 2024 1:02pm Essential hypertension September 24, 2024 1: 16pm Hyperlipidemia September 24, 2024 1:16p m Paroxysmal atrial fibrillation September 24, 2024 1:16pm Type 2 diabetes mellitus with diabetic p olyneuropathy October 09, 2024 8:45am Non-pressure chronic ulcer o f left calf with fat layer exposed October 09, 2024 8:45am Non-pressure chronic ulcer o f other part of right foot with fat layer exposed October 09, 2024 8:45am Additional Source Comments Reason for Visit (unrecogniz ed section and content) Reason For Visit Description New/Est - 1st visit with physician 10/15 Preliminary reason f or visit data, not yet signed by the author as of right middle finger injury Source Comments (unrecognize d section and content) In the event this informatio n is protected by the Federal Confidentiality of Alcohol and Drug Abuse Patient Records regulations: The Federal rules restrict any use of the information to criminally investigate or prosecute any alcohol or drug abuse patient.[facility] Care Teams (unrecognized sec tion and content) Aurist Relationship Specialty Start Date End Date Bernie Reagan MD [address] [place] [place] [address] PCP - General Internal Medicine 02/06/19 Julius Wesley [address] [place] [address] Specialty Coal Grader Cardiology 10/20/18 Dave Ortiz [address] [place] [address] Consulting Pulmonary Disease 10/20/18 Heriberto Cordero MD [address] [place] [address] Specialty Coal Grader Nephrology 10/20/18 Eddie Thorpe [address] [place] [address] Specialty Coal Grader Cerebrovascular 10/20/18 Team Status: Active Member Role Status Dates Dr. Bernie Reagan MD Primary Care Provider Active Team Status: Inactive Member Role Status Dates Dr. Bernie Reagan MD Primary Care Esther loyola, Attending Provider, Referring Provider Active Team Status: Active Member Role Status Dates Dr. Bernie Reagan MD Primary Care P rovider, Attending Provider, Referring Provider Active Team Status: Inactive Member Role Status Dates Dr. Bernie Reagan MD Primary Care Provider Active Dr. Wale Barrera DO Emergency Provider Active Team Status: Active Member Role Status Dates Dr. Bernie Reagan MD Primary Care Provider Active Dr. Karina Gonzalez MD Emergency Provider Active Dr. Durga Guzman MD Admit Provider, A ttending Provider, Other Provider Active Dr. Kiran Wolff MD Other Provider Active Team Status: Active Member Role Status Dates Dr. Bernie Reagan MD Primary Care Provider Active Dr. Karina Gonzalez MD Emergency Provider Active Dr. Durga Guzman MD Admit Provider, Attending Provi nathan Active Dr. Kiran Wolff MD Other Provider Active Team Status: Active Member Role Status Dates Dr. Bernie Reagan MD Primary Care Provider Active Dr. Karina Gonzalez MD Emergency Provider Active Dr. Durga Guzman MD Admit Provider, Other Provider Active Dr. Kiran Wolff MD Other Provider Active Dr. Elvia Damon MD Attending Provider Active Team Status: Active Member Role Status Dates Dr. Bernie Reagan MD Primary Care Provider Active Dr. Karina Gonzalez MD Emergency Provider Active Dr. Durga Guzman MD Admit Provider, Other Provider Active Dr. Kiran Wolff MD Other Provider Active Dr. Kisha Lopez MD Attending Provider, Other Prov ider Active Dr. Reji Morocho MD Other Provider Active Team Status: Active Member Role Status Dates Dr. Bernie Reagan MD Primary Care Provider Active Dr. Jeremias Betancourt MD Attending Provider Active Team Status: Active Member Role Status Dates Dr. Bernie Reagan MD Primary Care Provider Active Dr. Karina Gonzalez MD Emergency Provider Active Dr. Durga Guzman MD Admit Provider, Other Provider Active Dr. Kiran Wolff MD Other Provider Active Dr. Reji Morocho MD Other Provider Active Dr. Nadja Jasmine DO Attending Provider, Other Pro vider Active Dr. Kisha Lopez MD Other Provider Active Team Status: Active Member Role Status Dates Dr. Bernie Reagan MD Primary Care Provider Active Dr. Karina Gonzalez MD Emergency Provider Active Dr. Durga Guzman MD Admit Provider, Other Provider Active Dr. Kiran Wolff MD Attending Provider, Other Provi nathan Active Dr. Reji Morocho MD Other Provider Active Dr. Nadja Jasmine DO Other Provider Active Dr. Kisha Lopez MD Other Provider Active Team Status: Active Member Role Status Dates Dr. Bernie Reagan MD Primary Care Provider Active Dr. Karina Gonzalez MD Emergency Provider Active Dr. Durga Guzman MD Admit Provider, Other Provider Active Dr. Kiran Wolff MD Other Provider Active Dr. Reji Morocho MD Other Provider Active Dr. Nadja Jasmine DO Attending Provider Active Dr. Kisha Lopez MD Other Provider Active Team Status: Active Member Role Status Dates Dr. Bernie Reagan MD Primary Care Provider Active Dr. Karina Gonzalez MD Emergency Provider Active Dr. Durga Guzman MD Admit Provider, Other Provider Active Dr. Kiran Wolff MD Other Provider Active Dr. Elvia Damon MD Active Dr. Kisha Lopez MD Attending Provider Active Team Status: Active Member Role Status Dates Dr. Bernie Reagan MD Primary Care Provider Active Dr. Karina Gonzalez MD Emergency Provider Active Dr. Durga Guzman MD Admit Provider, Other Provider Active Dr. Kiran Wolff MD Other Provider Active Dr. Reji Morocho MD Other Provider Active Dr. Nadja Jasmine DO Other Provider Active Dr. Kisha Lopez MD Other Provider Active Génesis Patel LEAD DESIGNER, LEAD DESIGNER-C Attending Provider Active Team Status: Inactive Member Role Status Dates Dr. Bernie Reagan MD Primary Care Provider, Refer ring Provider Active Nadja Mckeon LEAD DESIGNER, LEAD DESIGNER-C Attending Provider Active Team Status: Active Member Role Status Dates Dr. Bernie Reagan MD Primary Care Provider Active Dr. Jeremias Betancourt MD Attending Provider Active Dr. Durga Guzman MD Referring Provider Active Team Status: Inactive Member Role Status Dates Dr. Bernie Reagan MD Primary Care Provider Active Dr. Wale Barrera DO Attending Provider, Emergency P rovider Active Team Status: Inactive Member Role Status Dates Dr. Bernie Reagan MD Primary Care Provider Active Dr. Karina Gonzalez MD Emergency Provider Active Dr. Durga Guzman MD Admit Provider, Other Provider Active Dr. Kiran Wolff MD Other Provider Active Dr. Reji Morocho MD Other Provider Active Dr. Nadja Jasmine DO Attending Provider Active Dr. Kisha Lopez MD Other Provider Active Team Status: Active Member Role Status Dates Dr. Bernie Reagan MD Primary Care Provider Active Génesis Patel LEAD DESIGNER, LEAD DESIGNER-C Attending Provider Active Team Status: Inactive Member Role Status Dates Dr. Bernie Reagan MD Primary Care Provider Active Dr. Reji Morocho MD Attending Provider, Referrin g Provider Active Team Status: Active Member Role Status Dates Dr. Bernie Reagan MD Primary Care Provider Active Dr. Reji Morocho MD Attending Provider, Referrin g Provider Active Team Status: Active Member Role Status Dates Dr. Bernie Reagan MD Primary Care Provider Active Dr. Karina Gonzalez MD Emergency Provider Active Dr. Durga Guzman MD Admit Provider, R eferring Provider, Other Provider Active Dr. Kiran Wolff MD Attending Provider, Other Provi nathan Active Dr. Reji Morocho MD Other Provider Active Dr. Nadja Jasmine DO Other Provider Active Dr. Kisha Lopez MD Other Provider Active Team Status: Active Member Role Status Dates Dr. Bernie Reagan MD Primary Care Provider Active Génesis Patel LEAD DESIGNER, LEAD DESIGNER-C Attending Provider, Other P rovider Active Team Status: Inactive Member Role Status Dates Dr. Bernie Reagan MD Primary Care Provider Active Nadja Mckeon LEAD DESIGNER, LEAD DESIGNER-C Attending Provider Active Team Status: Active Member Role Status Dates Dr. Bernie Reagan MD Primary Care Provider Active Nadja Mckeon LEAD DESIGNER, LEAD DESIGNER-C Attending Provider, Referring Prov ider Active Team Status: Active Member Role Status Dates Dr. Bernie Reagan MD Primary Care Provider Active Dr. Monty Mota DO Emergency Provider Active Dr. Nicholas Delvalle MD Admit Provider, Attending Pro vider Active Team Status: Active Member Role Status Dates Dr. Bernie Reagan MD Primary Care Provider Active Dr. Monty Mota DO Emergency Provider Active Dr. Nicholas Delvalle MD Admit Provider, Attending Provider, Other Provider Active Team Status: Inactive Member Role Status Dates Dr. Bernie Reagan MD Primary Care Provider Active Nadja Mckeon LEAD DESIGNER, LEAD DESIGNER-C Attending Provider, Referring Prov ider Active Team Status: Active Member Role Status Dates Dr. Bernie Reagan MD Primary Care Provider Active Dr. Monty Mota DO Emergency Provider Active Dr. Nicholas Delvalle MD Admit Provider, Other Provide r Active Dr. Wale Jacobsen DO Attending Provider Active Team Status: Active Member Role Status Dates Dr. Bernie Reagan MD Primary Care Provider Active Dr. Monty Mota DO Emergency Provider Active Dr. Nicholas Delvalle MD Admit Provider, Other Provide r Active Dr. Wale Jacobsen DO Attending Provider, Other Provid er Active Team Status: Active Member Role Status Dates Dr. Bernie Reagan MD Primary Care Provider Active Dr. Monty Mota DO Emergency Provider Active Dr. Nicholas Delvalle MD Admit Provider, Other Provide r Active Dr. Wale Jacobsen DO Attending Provider, Other Provid er Active Dr. Anu James MD Other Provider Active Team Status: Active Member Role Status Dates Dr. Bernie Reagan MD Primary Care Provider Active Dr. Monty Mota DO Emergency Provider Active Dr. Nicholas Delvalle MD Admit Provider, Other Provide r Active Dr. Wale Jacobsen DO Other Provider Active Dr. Anu James MD Attending Provider, Othe r Provider Active Team Status: Active Member Role Status Dates Dr. Bernie Reagan MD Primary Care Provider Active Dr. Monty Mota DO Emergency Provider Active Dr. Nicholas Delvalle MD Admit Provider, Other Provide r Active Dr. Wale Jacobsen DO Attending Provider Active Dr. Anu James MD Other Provider Active Team Status: Inactive Member Role Status Dates Dr. Bernie Reagan MD Primary Care Provider Active Génesis Patel LEAD DESIGNER, LEAD DESIGNER-C Attending Provider Active Team Status: Active Member Role Status Dates Dr. Bernie Reagan MD Primary Care Provider Active Dr. Monty Mota DO Emergency Provider Active Dr. Nicholas Delvalle MD Admit Provider, Other Provide r Active Dr. Anu James MD Other Provider Active Dr. Kisha Lopez MD Attending Provider, Other Prov ider Active Dr. Wale Jacobsen DO Other Provider Active Team Status: Inactive Member Role Status Dates Dr. Bernie Reagan MD Primary Care Provider Active Dr. Monty Mota DO Emergency Provider Active Dr. Nicholas Delvalle MD Admit Provider, Other Provide r Active Dr. Anu James MD Other Provider Active Dr. Kisha Lopez MD Attending Provider Active Dr. Wale Jacobsen , Other Provider Active Team Status: Active Member Role Status Dates Dr. Bernie Reagan MD Primary Care Provider Active Dr. Anu James MD Attending Provider Activ e Dr. Nicholas Delvalle MD Referring Provider Active Team Status: Inactive Member Role Status Dates Dr. Bernie Reagan MD Primary Care Provider Active Dr. Tj Manzano MD Emergency Provider Active Team Status: Active Member Role Status Dates Dr. Bernie Reagan MD Primary Care Provider Active Dr. Krishna Frances DO Emergency Provider Active Dr. Omayra Cho , Admit Provider, Attending Provide r Active Team Status: Active Member Role Status Dates Dr. Bernie Reagan MD Primary Care Provider Active Dr. Krishna Frances DO Emergency Provider Active Dr. Omayra Cho DO Admit Provider, Att ending Provider, Other Provider Active Team Status: Active Member Role Status Dates Dr. Bernie Reagan MD Primary Care Provider Active Dr. Krishna Frances DO Emergency Provider Active Dr. Omayra Cho , DO Admit Provider, Other Provider Ac tive Dr. Nadja Jasmine , DO Attending Provider, Other Pro vider Active Team Status: Inactive Member Role Status Dates Dr. Bernie Reagan MD Primary Care Provider Active Dr. Tj Manzano MD Attending Provider, Emergency Provider Active Team Status: Active Member Role Status Dates Dr. Bernie Reagan MD Primary Care Provider Active Dr. Krishna Frances DO Emergency Provider Active Dr. Omayra Marquis , DO Admit Provider, Other Provider Ac tive Dr. Nadja Jasmine , DO Attending Provider Active Team Status: Active Member Role Status Dates Dr. Bernie Reagan MD Primary Care Provider Active Dr. Krishna Frances , DO Emergency Provider Active Dr. Omayra Cho , DO Admit Provider, Other Provider Ac tive Dr. Kisha Lopez MD Other Provider Active Dr. Nadja Jasmine , DO Other Provider Active Dr. Yobany Connor MD Attending Provider, Other Provid er Active Team Status: Active Member Role Status Dates Dr. Bernie Reagan MD Primary Care Provider Active Dr. Krishna Frances , DO Emergency Provider Active Dr. Omayra Cho , DO Admit Provider, Other Provider Ac tive Dr. Kisha Lopez MD Attending Provider, Other Prov ider Active Dr. Nadja Jasmine , DO Other Provider Active Dr. Yobany Connor MD Other Provider Active Team Status: Active Member Role Status Dates Dr. Bernie Reagan MD Primary Care Provider Active Dr. Jeremias Betancourt MD Attending Provider Active Dr. Omayra Cho , Referring Provider Active Team Status: Inactive Member Role Status Dates Dr. Bernie Reagan MD Primary Care Provider Active Dr. Krishna Frances , Emergency Provider Active Dr. Omayra Cho , DO Admit Provider, Other Provider Ac tive Dr. Kisha Lopez MD Attending Provider Active Dr. Nadja Jasmine , DO Other Provider Active Dr. Yobany Connor MD Other Provider Active Team Status: Active Member Role Status Dates Dr. Bernie Reagan MD Primary Care Provider Active Génesis Patel LEAD DESIGNER, LEAD DESIGNER-C Attending Pro vider, Referring Provider, Other Provider Active Team Status: Active Member Role Status Dates Dr. Bernie Reagan MD Primary Care Provider, Atten ding Provider Active Team Status: Active Member Role Status Dates Dr. Bernie Reagan MD Primary Care Provider, Refer ring Provider Active Dr. Mango Waddell MD Attending Provider Active Team Status: Inactive Member Role Status Dates Dr. Bernie Reagan MD Primary Care Provider, Atten ding Provider Active Team Status: Inactive Member Role Status Dates Dr. Bernie Reagan MD Primary Care Provider, Refer ring Provider Active Mando López LEAD DESIGNER, LEAD DESIGNER-C Attending Provider Active Team Status: Inactive Member Role Status Dates Dr. Bernie Reagan MD Primary Care Provider, Refer ring Provider Active Dr. Mango Waddell MD Attending Provider Active Team Status: Active Member Role Status Dates Dr. Bernie Reagan MD Primary Care Provider Active Tushar Diamond ORELLANA MD Attending Provider Active Team Status: Inactive Member Role Status Dates Dr. Bernie Reagan MD Primary Care Provider Active Dr. Sebastian Sesay DO Emergency Provider Active Team Status: Inactive Member Role Status Dates Dr. Bernie Reagan MD Primary Care Provider, Refer ring Provider Active Caitlin Castorena PA, PA Attending Provider Active Team Status: Active Member Role Status Dates Dr. Bernie Reagan MD Primary Care Provider Active Dr. Reji Donnelly MD Attending Provider Active Team Status: Inactive Member Role Status Dates Dr. Bernie Reagan MD Primary Care Provider Active Dr. Sebastian Sesay DO Attending Provider, Emergency P nir Active Team Status: Inactive Member Role Status Dates Dr. Bernie Reagan MD Primary Care Provider Active Dr. Román Suggs MD Attending Provider, Referring Pr ovider Active Team Status: Active Member Role Status Dates Dr. Bernie Reagan MD Primary Care Provider Active Dr. Reji Donnelly MD Attending Provider Active Dr. Román Suggs MD Referring Provider Active Team Status: Inactive Member Role Status Dates Dr. Bernie Reagan MD Primary Care Provider Active Dr. Reji Raymond MD Attending Provider, Referrin g Provider Active Team Status: Inactive Member Role Status Dates Dr. Bernie Reagan MD Primary Care Provider Active Start: May 21, 2024 End: May 21, 2024 Dr. Bernie Reagan MD Attending Provider Active Start: May 21, 2024 End: May 21, 2024 Dr. Bernie Reagna MD Referring Provider Active Start: May 21, 2024 End: May 21, 2024 Team Status: Inactive Member Role Status Dates Dr. Bernie Reagan MD Primary Care Provider Active Start: August 20, 2024 End: August 20, 2024 Dr. Bernie Reagan MD Attending Provider Active Start: August 20, 2024 End: August 20, 2024 Dr. Bernie Reagan MD Referring Provider Active Start: August 20, 2024 End: August 20, 2024 Team Status: Active Member Role Status Dates Dr. Bernie Reagan MD Primary Care Provider Active Start: August 20, 2024 Dr. Bernie Reagan MD Attending Provider Active Start: August 20, 2024 Team Status: Inactive Member Role Status Dates Dr. Bernie Reagan MD Primary Care Provider Active Start: September 11, 2024 End: September 12, 2024 Dr. Bernie Reagan MD Referring Provider Active Start: September 11, 2024 End: September 12, 2024 Dr. Fatemeh Espinosa DPM Attending Provider Active Start: September 11, 2024 End: September 12, 2024 Team Status: Inactive Member Role Status Dates Dr. Bernie Reagan MD Primary Care Provider Active Start: September 19, 2024 End: September 19, 2024 Dr. Bernie Reagan MD Referring Provider Active Start: September 19, 2024 End: September 19, 2024 Caitlin HALEY PA Attending Provider Active St art: September 19, 2024 End: September 19, 2024 Team Status: Inactive Member Role Status Dates Dr. Bernie Reagan MD Primary Care Provider Active Start: September 24, 2024 End: September 24, 2024 Dr. Bernie Reagan MD Referring Provider Active Start: September 24, 2024 End: September 24, 2024 Mando López LEAD DESIGNER, LEAD DESIGNER-C Attending Provider Active S tart: September 24, 2024 End: September 24, 2024 Team Status: Active Member Role Status Dates Dr. Bernie Reagan MD Primary Care Provider Active Start: October 02, 2024 Dr. Bernie Reagan MD Referring Provider Active Start: October 02, 2024 Dr. Fatemeh Espinosa DPM Attending Provider Active Start: October 02, 2024 Team Status: Inactive Member Role Status Dates Dr. Bernie Reagan MD Primary Care Provider Active Start: October 02, 2024 End: October 02, 2024 Dr. Wale Barrera DO Emergency Provider Active Start: October 02, 2024 End: October 02, 2024 Team Status: Inactive Member Role Status Dates Dr. Bernie Reagan MD Primary Care Provider Active Start: October 02, 2024 End: October 02, 2024 Dr. Wale Barrera DO Attending Provider Active Start: October 02, 2024 End: October 02, 2024 Dr. Wale Barrera , Emergency Provider Active Start: October 02, 2024 End: October 02, 2024 Team Status: Inactive Member Role Status Dates Dr. Bernie Reagan MD Primary Care Provider Active Start: October 09, 2024 End: October 13, 2024 Dr. Bernie Reagan MD Referring Provider Active Start: October 09, 2024 End: October 13, 2024 Dr. Fatemeh Espinosa DPM Attending Provider Active Start: October 09, 2024 End: October 13, 2024 INFORMATION SOURCE (unrecogn ized section and content) DATE CREATED AUTHOR 07/25/2021 [facility] DATE CREATED AUTHOR AUTHOR'S ORGANIZ ATION 07/20/2023 [facility] DATE CREATED AUTHOR AUTHOR'S ORGANIZ ATION 10/18/2024 [facility] DATE CREATED AUTHOR AUTHOR'S ORGANIZ ATION 11/04/2024 [facility] Goals (unrecognized section and content) Goals may be documented in a n alternate sectionGoals may be documented in an alternate sectionGoals may be documented in an alternate sectionGoals may be documented in an alternate sectionGoals may be documented in an alternate sectionGoals may be documented in an alternate sectionGoals may be documented in an alternate sectionGoals may be documented in an alternate sectionGoals may be documented in an alternate sectionGoals may be documented in an alternate sectionGoals may be documented in an alternate sectionGoals may be documented in an alternate sectionGoals may be documented in an alternate sectionGoals may be documented in an alternate sectionGoals may be documented in an alternate sectionGoals may be documented in an alternate sectionGoals may be documented in an alternate section No data available for this section No data available for this sectionGoals may be documented in an alternate sectionGoals may be documented in an alternate section No data available for this sectionGoals may be documented in an alternate section No data available for this section No data available for this sectionGoals may be documented in an alternate section No data available for this sectionGoals may be documented in an alternate sectionGoals may be documented in an alternate section No data available for this sectionGoals may be documented in an alternate section No data available for this section FOR RECORDS PERTAINING TO PATIENTS WHO ARE OR HAVE BEEN ENROLLED IN A CHEMICAL DEPENDENCY/SUBSTANCEABUSE PROGRAM, SOME INFORMATION MAY BE OMITTED. This clinical summary was aggregated from multiple sources. Caution should be exercised in using it in the provision of clinical care. This summary normalizes information from multiple sources, and as a consequence, information in this document may materially change the coding, format and clinical context of patient data. In addition, data may be omitted in some cases. CLINICAL DECISIONS SHOULD BE BASED ON THE PRIMARY CLINICAL RECORDS. [employer] [facility]. provides no warranty or guarantee of the accuracy or completeness of information in this document.
--- OUTSIDE RECORDS SUMMARY | 2024-11-07 04:31 | XMS RPT_ITS | CCD ---
Author Organization [facility] Care Team Providers Care Strapper Operator Name Role Phone Dakotah CALLOWAY, Mando Molina Unavailable Julius Wesley Unavailable Dave Ortiz Unavailable Gil CALLOWAY, Heriberto Unavailable Eddie Thorpe Unavailable Bernie Reagan MD Primary Care Provider Dr. [...] Provider Dr. Reji Morocho Other Provider Dr. Jeremias Betancourt Attending Provider Dr. Kiran Wolff Attending Provider Dr. Nadja Jasmine Other Provider Dr. Nadja Jasmine Attending Provider Dr. Jeremias Betancourt Attending Provider Dr. Durga Guzman Referring Provider Dr. Kisha Lopez Attending Provider Amanda LAND CLASSIFIER, LAND CLASSIFIER-C Génesis E Attending Provider Mckeon LAND CLASSIFIER, LAND CLASSIFIER-C Nadja Attending Provider [phone] Dr. Bernie [...] Provider Dr. Nadja Jasmine Attending Provider Amanda LAND CLASSIFIER, LAND CLASSIFIER-C Génesis E Attending Provider Amanda LAND CLASSIFIER, LAND CLASSIFIER-C Génesis E Other Provider Mckeon LAND CLASSIFIER, LAND CLASSIFIER-C Nadja Attending Provider Dr. Monty Mota Emergency [...] Provider Dr. Omayra Cho Admit Provider Dr. Omayra Cho Attending Provider Dr. Omayra Cho Other Provider Dr. Omayra Cho Referring Provider Dr. Yobany Connor Other Provider Dr. Yobany Connor Attending Provider Dr. Bernie Reagan Primary Care Provider Dr. Bernie Reagan Referring Provider [phone] Dr. Bernie Reagan Attending Provider Amanda LAND CLASSIFIER, LAND CLASSIFIER-C Génesis E Referring Provider Dr. Bernie Reagan Primary Care Provider Amanda LAND CLASSIFIER, LAND CLASSIFIER-C Génesis E Attending Provider Dr. Kisha Lopez Attending Provider Dr. Kisha Lopez Other Provider Dr. Nadja Jasmine Attending Provider Dr. Nadja Jasmine Other Provider Dr. Jeremias Betancourt Attending Provider Roof LAND CLASSIFIER, LAND CLASSIFIER-C Mando Hernandez Attending Provider TEZ CALLOWAY, BERNIE Smith Primary Care [phone] Dr. Bernie Reagan Primary Care Provider [phone] Amanda LAND CLASSIFIER, LAND CLASSIFIER-C Génesis Meza Attending Provider [phone] Amanda LAND CLASSIFIER, LAND CLASSIFIER-C Génesis Meza Other Provider Dr. Bernie Reagan Referring Provider [phone] Mike LAND CLASSIFIER, LAND CLASSIFIER-C Nadja Attending Provider [phone] Dr. Bernie Reagan Attending Provider [phone] Dr. Bernie Reagan Primary Care Provider [phone] Dr. Bernie Reagan Referring Provider [phone] TERA Gr Attending Provider [phone] Dr. Reji Donnelly Attending Provider TEZ CALLOWAY, [facility] Primary Care Unavailab ambrosio REAGAN MD, [facility] Smith Consulting Unavailab le CECILIO DEL REAL, JULIUS Admitting Unavailable PLUNK DO, ROSARIO Attending Unavailable PALUTSIS DO, CARLITOS Blanc Consulting Unavail able CONCHA CALLOWAY, GEOFFREY Consulting Unavailable KORPI JONH DEL REAL Consulting Unavailable TEZ [facility] Unavailab ambrosio POLANCO MD, DR GONZALEZ Attending Unavailab ambrosio REAGAN MD, [facility] Primary Care Unavailab ambrosio FITCH MD, DR GERARD Qureshi Attending Unavailable ALISA LAWSON MD Consulting Unavailab ambrosio SANTIAGO MD, DR WILLS Attending Unavailable TEZ CALLOWAY, YAHIRMUSKEGONESTEPHANIE Primary Care Unavailab ambrosio PERLA MD, MARCELINA [...] Francisca FERNANDO, Dr. Campos Attending Provider Caitlin Gr Attending Provider Alice LAND CLASSIFIER-CMando Attending Provider Dr. Wale Barrera DO Emergency Provider [phone] Wale Barrera DO Attending Provider [phone] Oleghe, Efewongbe Primary Care Unavailable Oleghe, Efewongbe Referring Unavailable WaytCaitlin Attending Unavailable Oleghe, Efewongbe Primary Care Unavailable Oleghe, Efewongbe Referring Unavailable Roof LAND CLASSIFIERMando Attending Unavailable Oleghe, Efewongbe Primary Care Unavailable [...] Care UnavailRAJ East MD Attending Unavailable ELVA EDITOR MAP-ASSOCIATE MUSIC PROFESSOR, YAS M Admitting Unavaila ANJELICA Dorado MDBE B Primary Care UnavailMISA Madden DO Attending Unavailable Allergies Allergy Classification Reported Allergen(s) Allergy Type Date of Onset Reaction(s) Facility (9 sources) Fosinopril; Translations: [Fosinopril] Drug Allergy 0 [facility] Work Phone: (2 sources) Fosinopril Drug Allergy 7 coughing [facility] Work Phone: (20 sources) pioglitazone; Translations: [pioglitazone] Drug Allergy 9 Other: See Comments [facility] (20 sources) Fosinopril Drug Allergy 1 unknown, Other [facility] (2 sources) oxyCODONE Drug Allergy 1 Other [facility] Work Phone: (1 source) Fosinopril Drug Allergy 5 [facility] (1 source) pioglitazone Drug Allergy 5 [facility] Medications Current Medications Medication Drug Class(es) [...] every six hours as needed for pain Arroyo 325- 5 mg oral tablet Dose = [...] every six hours as needed for pain Arroyo 325- 5 mg oral tablet Dose = [...] qDay, # 30 tab(s), 3 Refill(s), Pharmacy: [facility], 155, cm, 07/10/23 21:37:00 EST, Height, kg, 07/10/23 21:37:00 EST, Dosing Weight Start Date: 07/14/23 Status: Ordered Quantity: 30.0 Unit: tab(s) Repeat number: 4 Start: 10-16-2019 AMLODIPINE BES YLATE TABS 1 tablet daily AMLODIPINE BESYLATE TABS [id number] Mando Claire MD Start: 10-10-2018 End: 09-04-2024 [...] qDay, # 30 tab(s), 3 Refill(s), Pharmacy: [facility], 155, cm, 07/10/23 21:37:00 EST, [...] 1 docusate sodium 50 mg / sennosides, retirement 8.6 mg oral tablet (20 sources) Start: [...] q12hr, # 60 cap(s), 3 Refill(s), Pharmacy: [facility], 155, cm, 07/10/23 21:37:00 EST, [...] qDayM, # 30 tab(s), 3 Refill(s), Pharmacy: [facility], 155, cm, 07/10/23 21:37:00 EST, [...] 02-25-2021 take 1 capsule by mo [facility] once daily Multivitamin Active 1 CAP PO DAILY February 25, 2021 8:10am Start: 02-25-2021 take 1 capsule by [facility] once daily Multivitamin Active 1 CAP PO DAILY February 24, 2021 11:00pm Start: 02-25-2021 take 1 capsule by [facility] once daily Multivitamin Active 1 CAP PO DAILY February 25, 2021 12:00am Normal saline (3 sources) Start: 09-21-2023 [place] Saline 0.6 5% nasal gel See Instructions, one application in both nostrils q 8 hours prn for dry nares, 0 Refill(s) Start Date: 09/21/23 Status: Ordered Repeat number: 1 Start: 09-21-2023 [place] Saline 0.6 5% nasal gel See Instructions, [...] Comment on above: Take 1 tablet by [facility] once daily. oxyCODONE hydrochloride 5 mg oral tablet (4 sources) Opioid Agonist Start: 03-01-20 take 5-10 mg by mouth every six hours as needed Oxycodone Active 5 - 10 MG PO EVERY 6 HOURS NEEDED 24 3 March 16, 2021 7:55pm polyethylene glycol 3350 62938 mg powder for oral solution (20 sources) [...] TABLET DELAYED RELEASE take once daily ASPIRIN [id number] William Bray MD bacitracin zinc 0.5 unt/mg [...] as right knee DJD (715.96) Nutrition consult [facility] Andree Murrell--Evaluate and treat for 250.02 --Uncontrolled [...] Calcium Channel Fritz Start: 08-15-2022 End: 08-20-2024 Ks-Ajanvuwjfotmv-St (7 sources) Start: 12-02-2021 End: 03-03-2022 Yj-Tyfryaeockoqi-Ob Discontinued ML PO December 01, 2021 11:00pm March 03, 2022 10:23am Start: 12-02-2021 End: 03-03-2022 Es-Gnjwggymfyxdm-Kp Disconti nued ML PO December 02, 2021 [...] GLYBURIDE TABS take once daily GLYBURIDE TABS [id number] William Bray MD hydroCHLOROthiazide 25 mg or [...] qDay, # 30 tab(s), 3 Refill(s), Pharmacy: [facility]/pharmacy #[id number], 155, cm, 07/10/23 21:37:00 EST, Height, [...] 1 tablet twice daily METOPROLOL TARTRATE TABS [id number] Mando Claire MD Start: 09-26-2018 End: 06-18-2020 [...] take as needed with food NAPROXEN SODIUM [id number] William Bray MD Comment on above: Take 1 tablet by [facility] twice daily with meals. As directed for [...] TA BS take once daily SIMVASTATIN TABS [id number] William Bray MD Comment on above: Take [...] Antagonist Start: 02-04-2012 DETROL LA 4 MG [id number] take twice daily TOLTERODINE TARTRATE [id number] William Bray MD triamcinolone acetonide 1 mg/ml [...] cbc, esr, and vanc trough. 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; Translations: [Long-term (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] 07-09-2022 Episodic Other aftercare (1 source) 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 of insulin; Translations: [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 of insulin] Onset: 5 Episodic [...] Respiratory failure; insufficiency; arrest (adult) (20 sources) Kubwa-kc-oomkdyz respiratory failure; Translations: [Acute and chronic respiratory [...] Estimated Glomerular Filtration Rate 55 ml/min/1.73sqm Normal [facility] Comment on above: Result Comment: Stages of [...] By: #### G FR, MG, BMP #### [facility] [address] [place], [place] [address] BMPon 10-22-2024 BUN/Creatinine Ratio 25 ratio Normal 7-27 [facility] Comment on above: Performed By: #### G FR, MG, BMP #### [facility] [address] [place], [place] [address] Calcium [Mass/Vol] 9.2 mg/dL Normal 8.4-10.2 [facility] Comment on above: Performed By: #### G FR, MG, BMP #### [address] [address] Chloride [Moles/Vol] 108 mmol/L High 98-107 [facility] Comment on above: Performed By: #### G FR, MG, BMP #### [address] [address] CO2 [Moles/Vol] 25 mmol/L Normal 23-31 [facility] Comment on above: Performed By: #### G FR, MG, BMP #### [address] [address] Creatinine [Mass/Vol] 1.07 mg/dL High 0.51-0.95 [facility] Comment on above: Performed By: #### G FR, MG, BMP #### [address] [address] Electrolyte Balance 9.0 mEq/L Normal 4.0-15.0 [facility] Comment on above: Performed By: #### G FR, MG, BMP #### [address] [address] Glucose [Mass/Vol] 119 mg/dL High 83-110 [facility] Comment on above: Performed By: #### G FR, MG, BMP #### [address] [address] Potassium [Moles/Vol] 4.5 mmol/L Normal 3.5-5.1 [facility] Comment on above: Performed By: #### G FR, MG, BMP #### [address] [address] Sodium [Moles/Vol] 142 mmol/L Normal 136-145 [facility] Comment on above: Performed By: #### G FR, MG, BMP #### [address] [address] Urea nitrogen [Mass/Vol] 27 mg/dL High 7-18 [facility] Comment on above: Performed By: #### G FR, MG, BMP #### [address] [address] LABORATORYOrdered By: SYSTEM SYSTEM on 10-22-2024 Calcium [...] 10-22-2024 Magnesium [Mass/Vol] 2.1 mg/dL Normal 1.8-2.4 [facility] Comment on above: Performed By: #### G FR, MG, BMP #### [address] [address] .GFRon 10-21-2024 Estimated Glomerular Filtration Rate 56 ml/min/1.73sqm Normal [facility] Comment on above: Result Comment: Stages of [...] Performed By: #### U A, UAMIC #### [address] [address] BMPon 10-21-2024 BUN/Creatinine Ratio 23 ratio Normal 7-27 [facility] Comment on above: Performed By: #### U A, UAMIC #### [address] [address] Calcium [Mass/Vol] 8.5 mg/dL Normal 8.4-10.2 [facility] Comment on above: Performed By: #### U A, UAMIC #### [address] [address] Chloride [Moles/Vol] 106 mmol/L Normal 98-107 [facility] Comment on above: Performed By: #### U A, UAMIC #### [address] [address] CO2 [Moles/Vol] 24 mmol/L Normal 23-31 [facility] Comment on above: Performed By: #### U A, UAMIC #### [address] [address] Creatinine [Mass/Vol] 1.06 mg/dL High 0.51-0.95 [facility] Comment on above: Performed By: #### U A, UAMIC #### [address] [place], [place] [address] Electrolyte Balance 10.0 mEq/L Normal 4.0-15.0 [facility] Comment on above: Performed By: #### U A, UAMIC #### [facility] [address] [place], [place] [address] Glucose [Mass/Vol] 98 mg/dL Normal 83-110 [facility] Comment on above: Performed By: #### U A, UAMIC #### [address] [place], [place] [address] Potassium [Moles/Vol] 4.4 mmol/L Normal 3.5-5.1 [facility] Comment on above: Performed By: #### U A, UAMIC #### [address] [address] Sodium [Moles/Vol] 140 mmol/L Normal 136-145 [facility] Comment on above: Performed By: #### U A, UAMIC #### [address] [address] Urea nitrogen [Mass/Vol] 24 mg/dL High 7-18 [facility] Comment on above: Performed By: #### U A, UAMIC #### [address] [address] LABORATORYOrdered By: Nisa Gonzalez on 10-21-2024 Blood Glucose Testing Reason Routine (10/21/24 4:45 PM) [facility] Glucose [Mass/Vol] 182 mg/dL High 82 - 115 mg/dL [facility] Blood Glucose Testing Reason Routine (10/21/24 11:58 AM) [facility] Glucose [Mass/Vol] 153 mg/dL High 82 - 115 mg/dL [facility] Blood Glucose Testing Reason Routine (10/21/24 8:05 AM) [facility] Glucose [Mass/Vol] 91 mg/dL Normal 82 - 115 mg/dL [facility] LABORATORYOrdered By: SYSTEM SYSTEM on 10-21-2024 Calcium [...] 10-21-2024 Magnesium [Mass/Vol] 2.0 mg/dL Normal 1.8-2.4 [facility] Comment on above: Performed By: #### ARNOLDO Wade #### [address] [place], [place] [address] .GFROrdered By: SYSTEM SYSTE M on 10-20-2024 [...] Performed By: #### ARNOLDO Wade #### [id number] [place], [place] [address] BMPon 10-20-2024 BUN/Creatinine Ratio 21 ratio Normal 7-27 [facility] Comment on above: Performed By: #### ROS WadeMIC #### [id number] [place], [place] [address] BMPOrdered By: SYSTEM SYSTEM on 10-20-2024 Calcium [Mass/Vol] 8.9 mg/dL Normal 8.4-10.2 AO ADM SS Comment on above: Performed By: #### U Karla, UAMIC #### Man [address] [address] Chloride [Moles/Vol] 108 mmol/L High 98-107 AO A DM SS Comment on above: Performed By: #### U A, UAMIC #### Man [address] [address] CO2 [Moles/Vol] 26 mmol/L Normal 23-31 AO ADM SS Comment on above: Performed By: #### U Karla, UAMIC #### Man [address] [address] Creatinine [Mass/Vol] 1.02 mg/dL High 0.51-0.95 AO ADM SS Comment on above: Performed By: #### U Karla, UAMIC #### Man [address] [address] Electrolyte Balance 6.0 mEq/L Normal 4.0-15.0 AO AD M SS Comment on above: Performed By: #### U Karla, UAMIC #### Man [address] [address] Glucose [Mass/Vol] 94 mg/dL Normal 83-110 AO ADM SS Comment on above: Performed By: #### U Karla, UAMIC #### [address] [address] Potassium [Moles/Vol] 4.5 mmol/L Normal 3.5-5.1 AO ADM SS Comment on above: Performed By: #### U A, UAMIC #### Man [address] [address] Sodium [Moles/Vol] 140 mmol/L Normal 136-145 AO ADM SS Comment on above: Performed By: #### U A, UAMIC #### Man [address] [address] Urea nitrogen [Mass/Vol] 21 mg/dL High 7-18 AO ADM SS Comment on above: Performed By: #### U A, UAMIC #### [address] [address] LABORATORYOrdered By: SYSTEM SYSTEM on 10-20-2024 Urea nitrogen/Creatinine [Mass ratio] 21 ratio Normal 7 - 27 ratio AO ADM SS MGOrdered By: SYSTEM SYSTEM on 10-20-2024 Magnesium [Mass/Vol] 2.1 mg/dL Normal 1.8-2.4 AO A DM SS Comment on above: Performed By: #### U A, UAMIC #### [address] [address] .GFRon 10-19-2024 Estimated Glomerular Filtration Rate 58 ml/min/1.73sqm Normal [facility] Comment on above: Result Comment: Stages of [...] By: #### G FR, MG, BMP #### [address] [address] BMPon 10-19-2024 BUN/Creatinine Ratio 24 ratio Normal 7-27 [facility] Comment on above: Performed By: #### G FR, MG, BMP #### [address] [address] Calcium [Mass/Vol] 8.8 mg/dL Normal 8.4-10.2 [facility] Comment on above: Performed By: #### G FR, MG, BMP #### [address] [address] Chloride [Moles/Vol] 107 mmol/L Normal 98-107 [facility] Comment on above: Performed By: #### G FR, MG, BMP #### [address] [address] CO2 [Moles/Vol] 28 mmol/L Normal 23-31 [facility] Comment on above: Performed By: #### G FR, MG, BMP #### [address] [address] Creatinine [Mass/Vol] 1.03 mg/dL High 0.51-0.95 [facility] Comment on above: Performed By: #### G FR, MG, BMP #### [address] [address] Electrolyte Balance 7.0 mEq/L Normal 4.0-15.0 [facility] Comment on above: Performed By: #### G FR, MG, BMP #### [address] [address] Glucose [Mass/Vol] 67 mg/dL Low 83-110 [facility] Comment on above: Performed By: #### G FR MG, BMP #### [address] [address] Potassium [Moles/Vol] 4.0 mmol/L Normal 3.5-5.1 [facility] Comment on above: Performed By: #### G FR, MG, BMP #### [address] [address] Sodium [Moles/Vol] 142 mmol/L Normal 136-145 [facility] Comment on above: Performed By: #### G FR, MG, BMP #### [address] [address] Urea nitrogen [Mass/Vol] 25 mg/dL High 7-18 [facility] Comment on above: Performed By: #### G FR, MG, BMP #### [address] [address] MGon 10-19-2024 Magnesium [Mass/Vol] 2.0 mg/dL Normal 1.8-2.4 [facility] Comment on above: Performed By: #### G FR, MG, BMP #### [facility] [address] [place], [place] [address] .Auto Diffon 10-18-2024 Basophil, Absolute 0.0 10 3/mcL Normal 0.0-0.3 [facility] Comment on above: Performed By: #### M RSAPCR #### [address] [address] Basophils/100 WBC (Bld) 0.5 % Normal 0.0-2.5 [facility] Comment on above: Performed By: #### M RSAPCR #### [address] [address] Eosinophil, Absolute 0.3 10 3/mcL Normal 0.0-0.7 [facility] Comment on above: Performed By: #### M RSAPCR #### [address] [address] Eosinophils/100 WBC (Bld) 4.3 % Normal 0.0-6.0 [facility] Comment on above: Performed By: #### M RSAPCR #### [address] [address] Lymphocyte, Absolute 0.9 10 3/mcL Normal 0.9-4.3 [facility] Comment on above: Performed By: #### M RSAPCR #### [address] [address] Lymphocytes/100 WBC (Bld) 12.0 % Low 20.0-40.0 [facility] Comment on above: Performed By: #### M RSAPCR #### [address] [address] Monocyte, Absolute 0.3 10 3/mcL Normal 0.1-1.4 [facility] Comment on above: Performed By: #### M RSAPCR #### [address] [address] Monocytes/100 WBC (Bld) 4.1 % Normal 2.0-13.0 [facility] Comment on above: Performed By: #### M RSAPCR #### [address] [address] Neutrophils/100 WBC (Bld) 79.1 % High 50.0-75.0 [facility] Comment on above: Performed By: #### M RSAPCR #### [address] [address] .GFRon 10-18-2024 Estimated Glomerular Filtration Rate 51 ml/min/1.73sqm Normal [facility] Comment on above: Result Comment: Stages of [...] results. Performed By: #### M RSAPCR #### [address] [address] .NEUABSon 10-18-2024 Neutrophil, Absolute 6.1 10 3/mcL Normal 2.3-8.1 [facility] Comment on above: Performed By: #### M RSAPCR #### [address] [address] BMPon 10-18-2024 BUN/Creatinine Ratio 24 ratio Normal 7-27 [facility] Comment on above: Performed By: #### M RSAPCR #### [address] [address] Calcium [Mass/Vol] 9.1 mg/dL Normal 8.4-10.2 [facility] Comment on above: Performed By: #### M RSAPCR #### [address] [address] Chloride [Moles/Vol] 106 mmol/L Normal 98-107 [facility] Comment on above: Performed By: #### M RSAPCR #### [address] [address] CO2 [Moles/Vol] 24 mmol/L Normal 23-31 [facility] Comment on above: Performed By: #### M RSAPCR #### [address] [address] Creatinine [Mass/Vol] 1.14 mg/dL High 0.51-0.95 [facility] Comment on above: Performed By: #### M RSAPCR #### [address] [address] Electrolyte Balance 10.0 mEq/L Normal 4.0-15.0 [facility] Comment on above: Performed By: #### M RSAPCR #### [place] [id number] Glucose [Mass/Vol] 149 mg/dL High 83-110 [facility] Comment on above: Performed By: #### M RSAPCR #### [id number] Potassium [Moles/Vol] 4.1 mmol/L Normal 3.5-5.1 [facility] Comment on above: Performed By: #### M RSAPCR #### [id number] Sodium [Moles/Vol] 140 mmol/L Normal 136-145 [facility] Comment on above: Performed By: #### M RSAPCR #### [address] [address] Urea nitrogen [Mass/Vol] 27 mg/dL High 7-18 [facility] Comment on above: Performed By: #### M RSAPCR #### [address] [address] CBCon 10-18-2024 Erythrocyte distribution width (RBC) [Ratio] 16.2 % High 11.5-15.5 [facility] Comment on above: Performed By: #### M RSAPCR #### [address] [address] Hematocrit (Bld) [Volume fraction] 29.9 % Low 34.0-46.0 [facility] Comment on above: Performed By: #### M RSAPCR #### [place] [address] Hgb 10.0 G/dL Low 12.0-16.0 [facility] Comment on above: Performed By: #### M RSAPCR #### [place] [address] MCH (RBC) [Entitic mass] 28.6 pg Normal 27.0-33.0 [facility] Comment on above: Performed By: #### M RSAPCR #### [place] [address] MCHC 33.3 G/dL Normal 32.0-36.0 [facility] Comment on above: Performed By: #### M RSAPCR #### [place] [address] MCV (RBC) [Entitic vol] 86.0 fL Normal 80.0-99.0 [facility] Comment on above: Performed By: #### M RSAPCR #### [place] [address] Platelet 202 10 3/mcL Normal 150-450 [facility] Comment on above: Performed By: #### M RSAPCR #### [place] [address] Platelet mean volume (Bld) [Entitic vol] 7.8 fL Normal 6.6-10.5 [facility] Comment on above: Performed By: #### M RSAPCR #### [place] [address] RBC 3.48 10 6/mcL Low 4.10-5.30 [facility] Comment on above: Performed By: #### M RSAPCR #### [place] [address] WBC 7.7 10 3/mcL Normal 4.5-10.8 [facility] Comment on above: Performed By: #### M RSAPCR #### [place] [address] Nora 10-18-2024 Ferritin [Mass/Vol] 112.0 ng/mL Normal 8.0-252.0 [facility] Comment on above: Performed By: #### M RSAPCR #### [facility] [address] [place], [place] [id number] FESon 10-18-2024 Iron [Mass/Vol] 34 ug/dL Low 50-170 [facility] Comment on above: Performed By: #### M RSAPCR #### [facility] [address] [place] [address] Iron Sat 15 % Normal [facility] Comment on above: Performed By: #### M RSAPCR #### [facility] [address] [place] [address] TIBC 220 mcg/dL Low 250-450 [facility] Comment on above: Performed By: #### M RSAPCR #### [place] [address] LABORATORYOrdered By: Raudel Pabon on 10-18-2024 Blood Glucose Interventions Administered food/juice (10/18/24 9:49 PM) [facility] LABORATORYOrdered By: SYSTEM SYSTEM on 10-18-2024 Basophils [...] 10-18-2024 Magnesium [Mass/Vol] 2.0 mg/dL Normal 1.8-2.4 [facility] Comment on above: Performed By: #### M RSAPCR #### [address] [address] .Auto Diffon 10-17-2024 Basophil, Absolute 0.0 10 3/mcL Normal 0.0-0.3 [facility] Comment on above: Performed By: #### G FR, MG, BMP #### [address] [address] Basophils/100 WBC (Bld) 0.4 % Normal 0.0-2.5 [facility] Comment on above: Performed By: #### G FR, MG, BMP #### [address] [address] Eosinophil, Absolute 0.1 10 3/mcL Normal 0.0-0.7 [facility] Comment on above: Performed By: #### G FR, MG, BMP #### [address] [address] Eosinophils/100 WBC (Bld) 1.8 % Normal 0.0-6.0 [facility] Comment on above: Performed By: #### G FR, MG, BMP #### [address] [address] Lymphocyte, Absolute 1.0 10 3/mcL Normal 0.9-4.3 [facility] Comment on above: Performed By: #### G FR, MG, BMP #### [address] [address] Lymphocytes/100 WBC (Bld) 12.4 % Low 20.0-40.0 [facility] Comment on above: Performed By: #### G FR, MG, BMP #### [address] [address] Monocyte, Absolute 0.3 10 3/mcL Normal 0.1-1.4 [facility] Comment on above: Performed By: #### G FR, MG, BMP #### [address] [address] Monocytes/100 WBC (Bld) 3.8 % Normal 2.0-13.0 [facility] Comment on above: Performed By: #### G FR, MG, BMP #### [address] [address] Neutrophils/100 WBC (Bld) 81.6 % High 50.0-75.0 [facility] Comment on above: Performed By: #### G FR, MG, BMP #### [address] [address] .GFRon 10-17-2024 Estimated Glomerular Filtration Rate 50 ml/min/1.73sqm Normal [facility] Comment on above: Result Comment: Stages of [...] DIFF, BMP, GFR, MG, ANEU, CBC #### [address] [address] .NEUABSon 10-17-2024 Neutrophil, Absolute 6.4 10 3/mcL Normal 2.3-8.1 [facility] Comment on above: Performed By: #### G FR, MG, BMP #### [address] [address] BMPon 10-17-2024 BUN/Creatinine Ratio 26 ratio Normal 7-27 [facility] Comment on above: Performed By: #### A DIFF, BMP, GFR, MG, ANEU, CBC #### [address] [address] Calcium [Mass/Vol] 8.8 mg/dL Normal 8.4-10.2 [facility] Comment on above: Performed By: #### A DIFF, BMP, GFR, MG, ANEU, CBC #### [address] [address] Chloride [Moles/Vol] 105 mmol/L Normal 98-107 [facility] Comment on above: Performed By: #### A DIFF, BMP, GFR, MG, ANEU, CBC #### [address] [address] CO2 [Moles/Vol] 24 mmol/L Normal 23-31 [facility] Comment on above: Performed By: #### A DIFF, BMP, GFR, MG, ANEU, CBC #### [address] [address] Creatinine [Mass/Vol] 1.17 mg/dL High 0.51-0.95 [facility] Comment on above: Performed By: #### A DIFF, BMP, GFR, MG, ANEU, CBC #### [place] [address] Electrolyte Balance 9.0 mEq/L Normal 4.0-15.0 [facility] Comment on above: Performed By: #### A DIFF, BMP, GFR, MG, ANEU, CBC #### [place] [address] Glucose [Mass/Vol] 120 mg/dL High 83-110 [facility] Comment on above: Performed By: #### A DIFF, BMP, GFR, MG, ANEU, CBC #### [address] [address] Potassium [Moles/Vol] 4.1 mmol/L Normal 3.5-5.1 [facility] Comment on above: Performed By: #### A DIFF, BMP, GFR, MG, ANEU, CBC #### [address] [address] Sodium [Moles/Vol] 138 mmol/L Normal 136-145 [facility] Comment on above: Performed By: #### A DIFF, BMP, GFR, MG, ANEU, CBC #### [place] [address] Urea nitrogen [Mass/Vol] 30 mg/dL High 7-18 [facility] Comment on above: Performed By: #### A DIFF, BMP, GFR, MG, ANEU, CBC #### [place] [address] CBCon 10-17-2024 Erythrocyte distribution width (RBC) [Ratio] 16.0 % High 11.5-15.5 [facility] Comment on above: Performed By: #### A DIFF, BMP, GFR, MG, ANEU, CBC #### [address] [address] Hematocrit (Bld) [Volume fraction] 30.7 % Low 34.0-46.0 [facility] Comment on above: Performed By: #### A DIFF, BMP, GFR, MG, ANEU, CBC #### [address] [address] Hgb 10.4 G/dL Low 12.0-16.0 [facility] Comment on above: Performed By: #### A DIFF, BMP, GFR, MG, ANEU, CBC #### [address] [address] MCH (RBC) [Entitic mass] 28.7 pg Normal 27.0-33.0 [facility] Comment on above: Performed By: #### A DIFF, BMP, GFR, MG, ANEU, CBC #### [place] [address] MCHC 33.8 G/dL Normal 32.0-36.0 [facility] Comment on above: Performed By: #### A DIFF, BMP, GFR, MG, ANEU, CBC #### [address] [address] MCV (RBC) [Entitic vol] 84.9 fL Normal 80.0-99.0 [facility] Comment on above: Performed By: #### A DIFF, BMP, GFR, MG, ANEU, CBC #### [address] [address] Platelet 211 10 3/mcL Normal 150-450 [facility] Comment on above: Performed By: #### A DIFF, BMP, GFR, MG, ANEU, CBC #### [address] [address] Platelet mean volume (Bld) [Entitic vol] 8.2 fL Normal 6.6-10.5 [facility] Comment on above: Performed By: #### A DIFF, BMP, GFR, MG, ANEU, CBC #### [place] [address] [place], [place] [address] RBC 3.62 10 6/mcL Low 4.10-5.30 [facility] Comment on above: Performed By: #### A DIFF, BMP, GFR, MG, ANEU, CBC #### [place] [address] [place], [place] [address] WBC 7.9 10 3/mcL Normal 4.5-10.8 [facility] Comment on above: Performed By: #### A DIFF, BMP, GFR, MG, ANEU, CBC #### [place] [address] [place], [place] [address] LABORATORYOrdered By: SYSTEM SYSTEM on 10-17-2024 Basophils [...] 10-17-2024 Magnesium [Mass/Vol] 1.7 mg/dL Low 1.8-2.4 [facility] Comment on above: Performed By: #### A DIFF, BMP, GFR, MG, ANEU, CBC #### [address] [address] .Auto Diffon 10-16-2024 Basophil, Absolute 0.0 10 3/mcL Normal 0.0-0.3 [facility] Comment on above: Performed By: #### G FR, MG, BMP #### [address] [address] Basophils/100 WBC (Bld) 0.6 % Normal 0.0-2.[address] [facility] Comment on above: Performed By: #### G FR, MG, BMP #### [address] [address] Eosinophil, Absolute 0.3 10 3/mcL Normal 0.0-0.7 [facility] Comment on above: Performed By: #### G FR, MG, BMP #### [address] [address] Eosinophils/100 WBC (Bld) 3.7 % Normal 0.0-6.0 [facility] Comment on above: Performed By: #### G FR, MG, BMP #### [address] [address] Lymphocyte, Absolute 1.4 10 3/mcL Normal 0.9-4.3 [facility] Comment on above: Performed By: #### G FR, MG, BMP #### [address] [address] Lymphocytes/100 WBC (Bld) 19.7 % Low 20.0-40.0 [facility] Comment on above: Performed By: #### G FR, MG, BMP #### [address] [address] Monocyte, Absolute 0.4 10 3/mcL Normal 0.1-1.4 [facility] Comment on above: Performed By: #### G FR, MG, BMP #### [address] [address] Monocytes/100 WBC (Bld) 5.2 % Normal 2.0-13.0 [facility] Comment on above: Performed By: #### G FR, MG, BMP #### [address] [address] Neutrophils/100 WBC (Bld) 70.8 % Normal 50.0-75.0 [facility] Comment on above: Performed By: #### G FR, MG, BMP #### [address] [address] .GFRon 10-16-2024 Estimated Glomerular Filtration Rate 46 ml/min/1.73sqm Normal [facility] Comment on above: Result Comment: Stages of [...] results. Performed By: #### M RSAPCR #### [facility] [address] [place] [address] .NEUABSon 10-16-2024 Neutrophil, Absolute 4.9 10 3/mcL Normal 2.3-8.1 [facility] Comment on above: Performed By: #### G FR, MG, BMP #### [address] [address] BMPon 10-16-2024 BUN/Creatinine Ratio 27 ratio Normal 7-27 [facility] Comment on above: Performed By: #### G FR, MG, BMP #### [address] [address] Calcium [Mass/Vol] 9.1 mg/dL Normal 8.4-10.2 [facility] Comment on above: Performed By: #### G FR, MG, BMP #### [address] [address] Chloride [Moles/Vol] 107 mmol/L Normal 98-107 [facility] Comment on above: Performed By: #### G FR, MG, BMP #### [address] [address] CO2 [Moles/Vol] 27 mmol/L Normal 23-31 [facility] Comment on above: Performed By: #### G FR, MG, BMP #### [address] [address] Creatinine [Mass/Vol] 1.25 mg/dL High 0.51-0.95 [facility] Comment on above: Performed By: #### G FR, MG, BMP #### [address] [address] Electrolyte Balance 7.0 mEq/L Normal 4.0-15.0 [facility] Comment on above: Performed By: #### G FR, MG, BMP #### [address] [address] Glucose [Mass/Vol] 102 mg/dL Normal 83-110 [facility] Comment on above: Performed By: #### G FR, MG, BMP #### [address] [address] Potassium [Moles/Vol] 4.5 mmol/L Normal 3.5-5.1 [facility] Comment on above: Performed By: #### G FR, MG, BMP #### [address] [address] Sodium [Moles/Vol] 141 mmol/L Normal 136-145 [facility] Comment on above: Performed By: #### G FR, MG, BMP #### [address] [address] Urea nitrogen [Mass/Vol] 34 mg/dL High 7-18 [facility] Comment on above: Performed By: #### G FR, MG, BMP #### [address] [address] CBCon 10-16-2024 Erythrocyte distribution width (RBC) [Ratio] 16.2 % High 11.5-15.5 [facility] Comment on above: Performed By: #### G FR, MG, BMP #### [address] [address] Hematocrit (Bld) [Volume fraction] 31.8 % Low 34.0-46.0 [facility] Comment on above: Performed By: #### G FR, MG, BMP #### [address] [address] Hgb 10.5 G/dL Low 12.0-16.0 [facility] Comment on above: Performed By: #### G FR, MG, BMP #### [address] [address] MCH (RBC) [Entitic mass] 28.5 pg Normal 27.0-33.0 [facility] Comment on above: Performed By: #### G FR, MG, BMP #### [address] [address] MCHC 33.0 G/dL Normal 32.0-36.0 [facility] Comment on above: Performed By: #### G FR, MG, BMP #### [address] [address] MCV (RBC) [Entitic vol] 86.1 fL Normal 80.0-99.[address] [facility] Comment on above: Performed By: #### G FR, MG, BMP #### [address] [address] Platelet 221 10 3/mcL Normal 150-450 [facility] Comment on above: Performed By: #### G FR, MG, BMP #### [address] [address] Platelet mean volume (Bld) [Entitic vol] 8.3 fL Normal 6.6-10.5 [facility] Comment on above: Performed By: #### G FR, MG, BMP #### [address] [address] RBC 3.69 10 6/mcL Low 4.10-5.30 [facility] Comment on above: Performed By: #### G FR, MG, BMP #### [address] [address] WBC 7.0 10 3/mcL Normal 4.5-10.8 [facility] Comment on above: Performed By: #### G FR, MG, BMP #### [address] [address] LABORATORYOrdered By: Jose Padron on 10-16-2024 Appearance [...] 10-16-2024 Magnesium [Mass/Vol] 1.7 mg/dL Low 1.8-2.4 [facility] Comment on above: Performed By: #### G FR, MG, BMP #### [facility] [address] [place], [place] [address] MRSAPCRon 10-16-2024 MRSA (PCR) Detected Abnormal Not Detected [facility] Comment on above: Result Comment: [place] s [id number] Performed By: #### M RSAPCR #### [facility] [address] [place] [address] MRSA PCR Int See Below Normal [facility] Comment on above: Result Comment: Clinical Interpretation: [...] notified. Performed By: #### M RSAPCR #### [facility] [address] [place] [address] No Panel Informationon 10-16 Culture Urine >100,000 cfu/ml Multiple bacterial morphotypes present. Probable Contamination. Suggest recollection if clinically indicated. [facility] UAon 10-16-2024 Color (U) Yellow Normal [facility] Comment on above: Performed By: #### U A, UAMIC #### [place] [address] Glucose (U) [Mass/Vol] Negative Normal Negative [facility] Comment on above: Performed By: #### U A, UAMIC #### [place] [address] Ketones Ql (U) Negative Normal Negative [facility] Comment on above: Performed By: #### U A, UAMIC #### [place] [address] UA Appear Slightly Cloudy Abnormal Clear [facility] Comment on above: Performed By: #### U A, UAMIC #### [place] [address] UA Blood Negative Normal Negative [facility] Comment on above: Performed By: #### U A, UAMIC #### [place] [address] UA Leuk Est Moderate Abnormal Negative [facility] Comment on above: Performed By: #### U A, UAMIC #### [address] [address] UA Nitrite Positive Abnormal Negative [facility] Comment on above: Performed By: #### U A, UAMIC #### [address] [address] UA pH 6.5 Normal 5.0 - 8.0 [facility] Comment on above: Performed By: #### U A, UAMIC #### [place] [address] UA Protein Trace Normal Negative [facility] Comment on above: Performed By: #### U A, UAMIC #### [place] [address] UA Spec Grav 1.015 Normal 1.015-1.025 [facility] Comment on above: Performed By: #### U A, UAMIC #### [place] [address] UA Specimen Type Clean Catch Normal [facility] Comment on above: Performed By: #### U A, UAMIC #### [address] [address] UA Urobilinogen 0.2 E.U./dL Normal 0.2-1.0 [facility] Comment on above: Performed By: #### U A, UAMIC #### [place] [address] Urobilinogen (U) [Mass/Vol] Negative Normal Negative [facility] Comment on above: Performed By: #### U A, UAMIC #### [address] [address] UAMICon 10-16-2024 UA Bacteria 3+ /hpf Abnormal Negative [facility] Comment on above: Performed By: #### U A, UAMIC #### [place] [id number] UA RBC Negative Normal 0-2 [facility] Comment on above: Performed By: #### U A, UAMIC #### [address] [address] UA Squam Epithelial 3-5 Normal 0-20 [facility] Comment on above: Performed By: #### U A UAMIC #### [address] [address] UA WBC 10-20 Abnormal 0-5 [facility] Comment on above: Performed By: #### U A, UAMIC #### [address] [address] .Auto Diffon 10-15-2024 Basophil, Absolute 0.0 10 3/mcL Normal 0.0-0.3 [facility] Comment on above: Performed By: #### G FR MG, BMP #### [address] [address] Basophils/100 WBC (Bld) 0.3 % Normal 0.0-2.5 [facility] Comment on above: Performed By: #### Marycruz FR MG, BMP #### [address] [address] Eosinophil, Absolute 0.3 10 3/mcL Normal 0.0-0.7 [facility] Comment on above: Performed By: #### Marycruz FR MG, BMP #### [address] [address] Eosinophils/100 WBC (Bld) 3.2 % Normal 0.0-6.0 [facility] Comment on above: Performed By: #### G FR MG, BMP #### [address] [address] Lymphocyte, Absolute 1.0 10 3/mcL Normal 0.9-4.3 [facility] Comment on above: Performed By: #### G FR, MG, BMP #### [address] [address] Lymphocytes/100 WBC (Bld) 10.6 % Low 20.0-40.0 [facility] Comment on above: Performed By: #### G FR, MG, BMP #### [address] [address] Monocyte, Absolute 0.5 10 3/mcL Normal 0.1-1.4 [facility] Comment on above: Performed By: #### G FR, MG, BMP #### [place] [address] [place], [place] [address] Monocytes/100 WBC (Bld) 5.9 % Normal 2.0-13.[address] [facility] Comment on above: Performed By: #### G FR, MG, BMP #### [place] [address] [place], [place] [address] Neutrophils/100 WBC (Bld) 80.0 % High 50.0-75.0 [facility] Comment on above: Performed By: #### G FR, MG, BMP #### [address] [address] .GFRon 10-15-2024 Estimated Glomerular Filtration Rate 43 ml/min/1.73sqm Normal [facility] Comment on above: Result Comment: Stages of [...] By: #### G FR, MG, BMP #### [address] [address] .MDWon 10-15-2024 Monocyte Distribution Width 19.85 Normal 0.00-20.00 [facility] Comment on above: Result Comment: For ED adult patients suspected of sepsis, MDW<=20.0 does not rule out sepsis or risk of sepsis Performed By: #### G FR, MG, BMP #### [address] [address] .NEUABSon 10-15-2024 Neutrophil, Absolute 7.2 10 3/mcL Normal 2.3-8.1 [facility] Comment on above: Performed By: #### Marycruz DELUNA MG, BMP #### [address] [address] BMPon 10-15-2024 BUN/Creatinine Ratio 25 ratio Normal 7-27 [facility] Comment on above: Performed By: #### Marycruz DELUNA MG, BMP #### [address] [address] Calcium [Mass/Vol] 9.3 mg/dL Normal 8.4-10.2 [facility] Comment on above: Performed By: #### Marycruz DELUNA MG, BMP #### [address] [address] Chloride [Moles/Vol] 104 mmol/L Normal 98-107 [facility] Comment on above: Performed By: #### Marycruz DELUNA MG, BMP #### [address] [address] CO2 [Moles/Vol] 25 mmol/L Normal 23-31 [facility] Comment on above: Performed By: #### Marycruz DELUNA MG, BMP #### [address] [address] Creatinine [Mass/Vol] 1.32 mg/dL High 0.51-0.95 [facility] Comment on above: Performed By: #### Marycruz DELUNA MG, BMP #### [address] [address] Electrolyte Balance 9.0 mEq/L Normal 4.0-15.0 [facility] Comment on above: Performed By: #### Marycruz FR MG, BMP #### [address] [address] Glucose [Mass/Vol] 219 mg/dL High 83-110 [facility] Comment on above: Performed By: #### Marycruz DELUNA MG, BMP #### [address] [address] Potassium [Moles/Vol] 5.4 mmol/L High 3.5-5.1 [facility] Comment on above: Performed By: #### MG PACO, BMP #### [address] [address] Sodium [Moles/Vol] 138 mmol/L Normal 136-145 [facility] Comment on above: Performed By: #### MG PACO, BMP #### [address] [address] Urea nitrogen [Mass/Vol] 33 mg/dL High 7-18 [facility] Comment on above: Performed By: #### MG PACO, BMP #### [address] [address] CBCon 10-15-2024 Erythrocyte distribution width (RBC) [Ratio] 16.0 % High 11.5-15.5 [facility] Comment on above: Performed By: #### MG PACO, BMP #### [address] [address] Hematocrit (Bld) [Volume fraction] 35.1 % Normal 34.0-46.0 [facility] Comment on above: Performed By: #### MG PACO, BMP #### [address] [address] Hgb 11.6 G/dL Low 12.0-16.0 [facility] Comment on above: Performed By: #### MG PACO, BMP #### [address] [address] MCH (RBC) [Entitic mass] 28.3 pg Normal 27.0-33.0 [facility] Comment on above: Performed By: #### Marycruz DELUNA MG, BMP #### [address] [address] MCHC 33.0 G/dL Normal 32.0-36.0 [facility] Comment on above: Performed By: #### MG PACO, BMP #### [address] [address] MCV (RBC) [Entitic vol] 85.6 fL Normal 80.0-99.[address] [facility] Comment on above: Performed By: #### G FR MG, BMP #### [place] [address] [place], [place] [address] Platelet 255 10 3/mcL Normal 150-450 [facility] Comment on above: Performed By: #### G FR MG, BMP #### [place] [address] [place], [place] [address] Platelet mean volume (Bld) [Entitic vol] 8.4 fL Normal 6.6-10.5 [facility] Comment on above: Performed By: #### G FR MG, BMP #### [address] [address] RBC 4.11 10 6/mcL Normal 4.10-5.30 [facility] Comment on above: Performed By: #### Marycruz DELUNA MG, BMP #### [address] [address] WBC 9.0 10 3/mcL Normal 4.5-10.8 [facility] Comment on above: Performed By: #### G FR MG, BMP #### [address] [address] Sonny 10-15-2024 Potassium [Moles/Vol] 5.0 mmol/L Normal 3.5-5.1 [facility] Comment on above: Performed By: #### M RSAPCR #### [facility] [address] [place] [address] LABORATORYOrdered By: Kal Kim on 10-15-2024 MRSA (PCR) Detected 1 *ABN* (10/15/24 10:37 PM) Invalid Interpretation Code Not Detected [facility] Comment on above: Result Comment: Note s [id number] MRSA PCR Int See Below 2 *NA* [...] ng/L Male: 0-76 ng/L Testing performed on [employer] using a homogeneous sandwich chemiluminescent immunoassay based on [email or web address] technology. [facility] 10-15-2024 High Sensitivity Troponin I 6 ng/L Normal 0-51 [facility] Comment on above: Result Comment: High Sensitive Troponin I Reference Ranges: Female: 0-51 ng/L Male: 0-76 ng/L Testing performed on [employer] using a homogeneous sandwich chemiluminescent immunoassay based on [email or web address] technology. Performed By: #### G FR, MG, BMP #### [address] [address] [address] HEAD OR BRAIN W/O CONTRAS Ton [...] 10/12/2024 3:10:45 AM Ordering Provider: MISA Robertson [facility] CT MAXILLOFACIAL W/O CONTRAS Ton 10-12-2024 CT [...] 10/12/2024 3:10:45 AM Ordering Provider: MISA Robertson [facility] CT SPINE CERVICAL W/O KARINA Diana 10-12-2024 [...] 10/12/2024 3:31:14 AM Ordering Provider: MISA BROWNE [facility] XR CHEST 1 VIEWon 10-12-2024 XR CHEST [...] 10/12/2024 3:39:21 AM Ordering Provider: MISA BROWNE [facility] XR KNEE THREE VIEWS RIGHTon 10-12-2024 XR [...] 10/12/2024 3:41:38 AM Ordering Provider: MISA BROWNE [facility] Culture, Blood (WB)on 2024 CUB Blood cultures x2, from two different sites No growth in 5 days. Normal [facility] Comment on above: Performed By: #### M 200.1000 #### [facility] [address] [place], [address] Urine Cultureon 10-05-2024 UR Copy of report sent to Infection Control Printer [id number] 10/05/24 0808 DEANN. Urine Culture RESULTS CALLED AND FAXED TO CORNELIO ROA 10/05/24 0811 Karuna Lal. REPORT READ BACK BY SAME. Urine Culture Urine Culture ESBL Escherichia coli Gleason Count >100,000 MARKER ESBL producing OrganismA MARKER [...] TMP SMX Islt LATISHA >=320 R Normal [facility] Comment on above: Performed By: #### M 100.2200 ####[facility] [address] [place], [address] 12 Lead EKGon 10-02-2024 12 Lead EKG [facility] [address] [place] [address] 12 Lead EKG 10/02/24 1739 MR#: [id number] Acct: [id number] Name: JOSELINE ELLIS Rep #: [id number] : 1950 74 From: Jeremias Betancourt MD [...] Abnormal ECG Confirmed by JEREMIAS BETANCOURT MD ([id number]), associate editor AMALIA MEJIA ([id number]) on 10/03/2024 10:36:51 AM Referred By: Confirmed By: JEREMIAS BETANCOURT MD 10/03/24 1036 Date Braddock Serafin MD CC: Dr. Bernie Reagan MD; Dr. Wale Barrera, DO Signed Normal [facility] Absolute lymphocyte countOrd ered By: Wale Barrera on 10-02-2024 Lymphocytes Auto (Unsp spec) [#/Vol] 1.26 10*3/uL 0.83-4.51 [facility] Activated partial thrombopla stin time (aPTT) in platelet poor plasma by coagulation aOrdered By: Wale Barrera on 10-02-2024 aPTT Coag (PPP) [Time] 36.2 s 24.1-36.2 [facility] Anion gap in Serum or Plasma Ordered By: Wale Barrera on 10-02-2024 Anion gap [Moles/Vol] 14 mmol/L 5-15 [facility] Automated blood erythrocyte countOrdered By: Wale Barrera on 10-02-2024 RBC (Bld) [#/Vol] 4.51 10*6/uL Normal 4.2-5.4 [facility] Comment on above: Performed By: #### L 300.3900, L503.7505, L501.2450, L501.4021, L500.4050, L503.6005, L300.4310, L100.0100 ####[facility] [address] [facility]. [place], [place], [phone] Automated blood hematocrit ( percentage)Ordered By: Wale Barrera on 10-02-2024 Hematocrit (Bld) [Volume fraction] 39.0 % Normal 37-47 [facility] Comment on above: Performed By: #### L 300.3900, L503.7505, L501.2450, L501.4021, L500.4050, L503.6005, L300.4310, L100.0100 ####[facility] [address] [place], [place], [phone] Automated lymphocyte count a s percentage of total leukocytesOrdered By: Wale Barrera on 10-02-2024 Lymphocytes/100 WBC Auto (Unsp spec) 17.1 % Low 19-41 [facility] BUN/creatinine ratioOrdered By: Wale Barrera on 10-02-2024 Urea nitrogen/Creatinine [Mass ratio] 20.2 mg/mg High 10-20 [facility] Basophil percentageOrdered B y: Wale Barrera on 10-02-2024 Basophils/100 WBC (Bld) 0.5 % Normal 0-1 [facility] Comment on above: Performed By: #### L 300.3900, L503.7505, L501.2450, L501.4021, L500.4050, L503.6005, L300.4310, L100.0100 ####[facility] [address] [place], [address] Bilirubin Test strip Ql (U)O rdered By: Wale Barrera on 10-02-2024 Bilirubin Ql (U) Negative Negative [facility] Bilirubin, totalOrdered By: Wale Barrera on 10-02-2024 Bilirubin [Mass/Vol] 0.36 mg/dL Normal 0.00-1.30 [facility] Comment on above: Performed By: #### L 300.3900, L503.7505, L501.2450, L501.4021, L500.4050, L503.6005, L300.4310, L100.0100 ####[facility] [address] [place], [address] Blood cultureOrdered By: Shalini Barrera on 10-02-2024 Bacteria identified Cx Nom (Bld) No growth in 5 days. [facility] CBC W/Diff, Automatedon 09-14 Absolute Lymph 1.26 X10 3/uL Normal 0.83-4.51 [facility] Comment on above: Performed By: #### L 300.3900, L503.7505, L501.2450, L501.4021, L500.4050, L503.6005, L300.4310, L100.0100 ####[facility] [address] [place], [address] Absolute Neut 5.3 X10 3/uL Normal 2.0-7.7 [facility] Comment on above: Performed By: #### L 300.3900, L503.7505, L501.2450, L501.4021, L500.4050, L503.6005, L300.4310, L100.0100 ####[facility] [address] [place], [address] IG% 0.500 Normal 0.0-0.9 [facility] Comment on above: Result Comment: IG% - Immature Granulocytes (promyelocytes, myelocytes and metamyelocytes) > 1% indicates that a LEFT SHIFT is Present. Performed By: #### L 300.3900, L503.7505, L501.2450, L501.4021, L500.4050, L503.6005, L300.4310, L100.0100 ####[facility] [address] [place], [address] Lymphocytes/100 WBC (Bld) 17.1 % Low 19-41 [facility] Comment on above: Performed By: #### L 300.3900, L503.7505, L501.2450, L501.4021, L500.4050, L503.6005, L300.4310, L100.0100 ####[facility] [address] [place], [address] MCHC (RBC) [Mass/Vol] 32.3 g/dL Normal 32-36 [facility] Comment on above: Performed By: #### L 300.3900, L503.7505, L501.2450, L501.4021, L500.4050, L503.6005, L300.4310, L100.0100 ####[facility] [address] [place], [address] Nucleated RBC (Bld) [#/Vol] 0 10*3/uL Normal 0-5 [facility] Comment on above: Performed By: #### L 300.3900, L503.7505, L501.2450, L501.4021, L500.4050, L503.6005, L300.4310, L100.0100 ####[facility] [address], [address] Platelet mean volume (Bld) [Entitic vol] 9.9 fL Normal 6.2-12.0 [facility] Comment on above: Performed By: #### L 300.3900, L503.7505, L501.2450, L501.4021, L500.4050, L503.6005, L300.4310, L100.0100 ####[facility] [address] [place], [address] RDW SD 47.0 fl High 35.1-43.9 [facility] Comment on above: Performed By: #### L 300.3900, L503.7505, L501.2450, L501.4021, L500.4050, L503.6005, L300.4310, L100.0100 ####[facility] [address] [place], [place], [phone] Carbon dioxide, total [Moles /volume] in Central venous bloodOrdered By: Wale Barrera on 10-02-2024 CO2 [Moles/Vol] 23.2 mmol/L Normal 21.0-32.0 [facility] Comment on above: Performed By: #### L 300.3900, L503.7505, L501.2450, L501.4021, L500.4050, L503.6005, L300.4310, L100.0100 ####[facility] [address] [place], [place], [phone] Chest PA and Lateralon 10-02 Chest PA and Lateral [facility] Services [address] [place], [place] [phone] ([phone] Chest PA and Lateral MR#: [id number] Acct: [id number] Name: JOSELINE ELLIS Rep #: [id number] : 1950 F 74 From: Caitlin Lynch MD PCP: Dr. Bernie Reagan MD Status: REG ER Study: Chest PA and Lateral Date of Exam: 10/02/24 Exam# [id number] Ordering Dr: Wale Barrera DO PROCEDURE: CHEST [...] Pulmonary vascular congestion. Mild cardiomegaly. Reading Location: [place] [address] CC: Dr. Bernie Reagan MD; Dr. 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 [place], [place], [phone] Comprehensive Metabolic Prof ilon 10-02-2024 ALK PHOS 66 U/L Normal 35-104 [facility] Comment on above: Performed By: #### L 300.3900, L503.7505, L501.2450, L501.4021, L500.4050, L503.6005, L300.4310, L100.0100 ####[facility] [address] [place], [address] AST [Catalytic activity/Vol] 31 U/L Normal <=31 [facility] Comment on above: Result Comment: Hemo lysis present, Results??could be affected. ?? Performed By: #### L 300.3900, L503.7505, L501.2450, L501.4021, L500.4050, L503.6005, L300.4310, L100.0100 ####[facility] [address] [place], [address] BUN/CRE 20.2 RATIO High 10-20 [facility] Comment on above: Performed By: #### L 300.3900, L503.7505, L501.2450, L501.4021, L500.4050, L503.6005, L300.4310, L100.0100 ####[facility] [address] [place], [place], [phone] ECRCL 34.86 ml/min Low 50-250 [facility] Comment on above: Performed By: #### L 300.3900, L503.7505, L501.2450, L501.4021, L500.4050, L503.6005, L300.4310, L100.0100 ####[facility] [address] [place], [address] GAP 14 Normal 5-15 [facility] Comment on above: Performed By: #### L 300.3900, L503.7505, L501.2450, L501.4021, L500.4050, L503.6005, L300.4310, L100.0100 ####[facility] [address] [place], [address] Potassium [Moles/Vol] 4.6 mmol/L Normal 3.3-5.1 [facility] Comment on above: Result Comment: Hemo lysis present, Results??could be affected. ?? Performed By: #### L 300.3900, L503.7505, L501.2450, L501.4021, L500.4050, L503.6005, L300.4310, L100.0100 ####[facility] [address] [place], [place], [phone] T PROT 8.0 g/dL Normal 5.9-8.4 [facility] Comment on above: Performed By: #### L 300.3900, L503.7505, L501.2450, L501.4021, L500.4050, L503.6005, L300.4310, L100.0100 ####[facility] [address] [place], [address] Emergency Department Summary on 10-02-2024 Emergency Department Summary [facility] Medical Records Department [address] [address] Emergency Department Summary 10/02/24 MR#: [id number] Acct: [id number] Name: JOSELINE ELLIS Rep #: [id number] : 1950 74 From: Wale Barrera DO [...] that the wounds are continually getting better. 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 Normal [facility] Eosinophil percentageOrdered By: Wale Barrera on 10-02-2024 Eosinophils/100 WBC (Bld) 3.4 % Normal 0-5 [facility] Comment on above: Performed By: #### L 300.3900, L503.7505, L501.2450, L501.4021, L500.4050, L503.6005, L300.4310, L100.0100 ####[facility] [address] [place], [place], [phone] Erythrocyte distribution wid th ratioOrdered By: Wale Barrera on 10-02-2024 Erythrocyte distribution width (RBC) [Ratio] 14.9 % High 11.6-14.6 [facility] Comment on above: Performed By: #### L 300.3900, L503.7505, L501.2450, L501.4021, L500.4050, L503.6005, L300.4310, L100.0100 ####[facility] [address] [place], [place], [phone] Erythrocyte distribution wid th standard deviationOrdered By: Wale Barrera on 10-02-2024 Erythrocyte distribution width (RBC) [Ratio] 47.0 fl High 35.1-43.9 [facility] Glomerular filtration rate ( GFR) estimation/1.73 sq m using serum, plasma, or whole bOrdered By: Wale Barrera on 10-02-2024 GFR/1.73 sq M.predicted among non-blacks MDRD (S/P/Bld) [Vol rate/Area] 38 mL/min/{1.73_m2} Low >60 [facility] Comment on above: Result Comment: mL/m in/1.73m2 CKD-EPI Creatinine Equation (2020) Performed By: #### L 300.3900, L503.7505, L501.2450, L501.4021, L500.4050, L503.6005, L300.4310, L100.0100 ####[facility] [address] [facility] [address] [place], [place], [phone] Hemoglobin measurementOrdere d By: Wale Barrera on 10-02-2024 Hemoglobin (Bld) [Mass/Vol] 12.6 g/dL Normal 12.0-15.0 [facility] Comment on above: Performed By: #### L 300.3900, L503.7505, L501.2450, L501.4021, L500.4050, L503.6005, L300.4310, L100.0100 ####[facility] [address] [place], [place], [phone] Immature granulocytes/100 WB C Auto (Bld)Ordered By: Wale Barrera on 10-02-2024 Immature granulocytes/100 WBC (Bld) 0.500 % 0.0-0.9 [facility] Ketones Test strip Ql (U)Ord ered By: Wale Barrera on 10-02-2024 Ketones Ql (U) Negative Negative [facility] L499.0042on 10-02-2024 Trop T High Sen 13 ng/L Normal <=14 [facility] Comment on above: Performed By: #### L 499.0042 #### [facility] [address] [place], [address] L499.0043on 10-02-2024 Trop T High Sen Normal <=14 [facility] Comment on above: Result Comment: NASH ENT DISCHARGED Performed By: #### L 499.0043 #### [facility] [address] [place], [address] L501.4021on 10-02-2024 Trop T High Sen 15 ng/L High <=14 [facility] Comment on above: Performed By: #### L 300.3900, L503.7505, L501.2450, L501.4021, L500.4050, L503.6005, L300.4310, L100.0100 ####[facility] [address] [place], [address] L503.7505on 10-02-2024 Natriuretic peptide B (Bld) [Mass/Vol] 2409 pg/mL High <=900 [facility] Comment on above: Result Comment: Hear t Failure Unlikely: < 300 pg/mL Heart Failure Likely < 50 Years: > 450 pg/mL 50-75 Years: > 900 pg/mL >75 Years: > 1800 pg/mL Performed By: #### L 300.3900, L503.7505, L501.2450, L501.4021, L500.4050, L503.6005, L300.4310, L100.0100 ####[facility] [address] [place], [address] Lactic Acidon 10-02-2024 Lactate [Moles/Vol] 2.3 mmol/L Invalid Interpretation Code 0.0-2.0 [facility] Comment on above: Order Comment: Y Result Comment: Crit ical Result(s) Called EMILLER3 at: 1842 by: KATINA??Results read back by same. Performed By: #### L 300.3900, L503.7505, L501.2450, L501.4021, L500.4050, L503.6005, L300.4310, L100.0100 ####[facility] [address] [place], [place], [phone]45) Lipaseon 10-02-2024 Lipase [Catalytic activity/Vol] 38 U/L Normal 13-75 [facility] Comment on above: Result Comment: Winston franco note: LIPASE revised reference range effective 22. New Lipase methodology. Expected to produce lower values than the previous assay method. NEW Reference Range: 13 - 75 U/L Performed By: #### L 300.3900, L503.7505, L501.2450, L501.4021, L500.4050, L503.6005, L300.4310, L100.0100 ####[facility] [address] [place], [address] MCV (mean corpuscular volume ) determinationOrdered By: Wale Barrera on 10-02-2024 MCV (RBC) [Entitic vol] 86.5 fL Normal 81-99 [facility] Comment on above: Performed By: #### L 300.3900, L503.7505, L501.2450, L501.4021, L500.4050, L503.6005, L300.4310, L100.0100 ####[facility] [address] [place], [place], [phone] Mean corpuscular hemoglobin (MCH) determinationOrdered By: Wale Barrera on 10-02-2024 MCH (RBC) [Entitic mass] 27.9 pg Normal 27.0-32.0 [facility] Comment on above: Performed By: #### L 300.3900, L503.7505, L501.2450, L501.4021, L500.4050, L503.6005, L300.4310, L100.0100 ####[facility] [address] [place], [address](600) Monocyte percentageOrdered B y: Wale Barrera on 10-02-2024 Monocytes/100 WBC (Bld) 6.2 % Normal 0-10 [facility] Comment on above: Performed By: #### L 300.3900, L503.7505, L501.2450, L501.4021, L500.4050, L503.6005, L300.4310, L100.0100 ####[facility] [address] [place], [place], [phone] Mucus LM Ql (Urine sed)Order ed By: Wale Barrera on 10-02-2024 Mucus Ql (Urine sed) 0 SEEN /hpf [facility] Natriuretic peptide.B prohor reggie N-Terminal [Mass/volume] in Serum or PlasmaOrdered By: Wale Barrera on 10-02-2024 Natriuretic peptide.B prohormone N-Terminal [Mass/Vol] 2409 pg/mL High <900 [facility] Neutrophil percentageOrdered By: Wale Barrera on 10-02-2024 Neutrophils/100 WBC (Bld) 72.3 % High 47-70 [facility] Comment on above: Performed By: #### L 300.3900, L503.7505, L501.2450, L501.4021, L500.4050, L503.6005, L300.4310, L100.0100 ####[facility] [address] [place], [place], [phone] Nitrite Test strip Ql (U)Ord ered By: Wale Barrera on 10-02-2024 Nitrite Ql (U) Positive High Negative [facility] No Panel InformationOrdered By: Wale Barrera on 10-02-2024 31 U/L <32 [facility] Partial Thromboplast Timeon 10-02-2024 aPTT Coag (Bld) [Time] 36.2 s Normal 24.1-36.2 [facility] Comment on above: Performed By: #### L 300.3900, L503.7505, L501.2450, L501.4021, L500.4050, L503.6005, L300.4310, L100.0100 ####[facility] [address] [place], [address] Platelet countOrdered By: Karan Barrera on 10-02-2024 Platelets (Bld) [#/Vol] 287 10*3/uL Normal 150-450 [facility] Comment on above: Performed By: #### L 300.3900, L503.7505, L501.2450, L501.4021, L500.4050, L503.6005, L300.4310, L100.0100 ####[facility] [address], [address] Potassium measurement (mass/ volume)Ordered By: Wale Barrera on 10-02-2024 Potassium (Unsp spec) [Mass/Vol] 4.6 mmol/L 3.3-5.1 [facility] Protein Test strip Ql (U)Ord ered By: Wale Barrera on 10-02-2024 Protein Ql (U) 15 mg/dl High Negative [facility] Prothrombin Time w/INRon INR Coag (PPP) [Relative time] 1.6 {INR} Normal [facility] Comment on above: Performed By: #### L 300.3900, L503.7505, L501.2450, L501.4021, L500.4050, L503.6005, L300.4310, L100.0100 ####[facility] [address] [place], [place], [phone] Prothrombin timeOrdered By: Wael Barrera on 10-02-2024 PT Coag (PPP) [Time] 19.2 s High 11.7-14.9 [facility] Comment on above: Performed By: #### L 300.3900, L503.7505, L501.2450, L501.4021, L500.4050, L503.6005, L300.4310, L100.0100 ####[facility] [address] [place], [place], [phone] Serum creatinine measurement (mass/volume)Ordered By: Wale Barrera on 10-02-2024 Creatinine [Mass/Vol] 1.46 mg/dL High 0.70-1.20 [facility] Comment on above: Performed By: #### L 300.3900, L503.7505, L501.2450, L501.4021, L500.4050, L503.6005, L300.4310, L100.0100 ####[facility] [address] [facility]. [place], [place], [phone] Serum globulin measurementOr dered By: Wale Barrera on 10-02-2024 Globulin (S) [Mass/Vol] 3.8 g/dL Normal 2.2-4.2 [facility] Comment on above: Performed By: #### L 300.3900, L503.7505, L501.2450, L501.4021, L500.4050, L503.6005, L300.4310, L100.0100 ####[facility] [address] [facility] [place], [address] Serum glucose measurement (m ass/volume)Ordered By: Wale Barrera on 10-02-2024 Glucose [Mass/Vol] 127 mg/dL High 70-99 [facility] Comment on above: Performed By: #### L 300.3900, L503.7505, L501.2450, L501.4021, L500.4050, L503.6005, L300.4310, L100.0100 ####[facility] [address] [place], [place], [phone] Serum or plasma alanine bean otransferase (ALT) measurementOrdered By: Wale Barrera on 10-02-2024 ALT [Catalytic activity/Vol] 16 U/L Normal <=34 [facility] Comment on above: Performed By: #### L 300.3900, L503.7505, L501.2450, L501.4021, L500.4050, L503.6005, L300.4310, L100.0100 ####[facility] [address] [place], [place], [phone] Serum or plasma albumin keyona urement (mass/volume)Ordered By: Wale Barrera on 10-02-2024 Albumin [Mass/Vol] 4.2 g/dL Normal 3.4-4.8 [facility] Comment on above: Performed By: #### L 300.3900, L503.7505, L501.2450, L501.4021, L500.4050, L503.6005, L300.4310, L100.0100 ####[facility] [address] [place], [place], [phone] Serum or plasma albumin/glob ulin mass ratioOrdered By: Wale Barrera on 10-02-2024 Albumin/Globulin [Mass ratio] 1.1 {ratio} Normal 0.9-2.4 [facility] Comment on above: Performed By: #### L 300.3900, L503.7505, L501.2450, L501.4021, L500.4050, L503.6005, L300.4310, L100.0100 ####[facility] [address] [place], [place], [phone] Serum or plasma alkaline kyle sphatase measurementOrdered By: Wale Barrera on 10-02-2024 ALP [Catalytic activity/Vol] 66 U/L 35-104 [facility] Serum or plasma calcium keyona urement (mass/volume)Ordered By: Wale Barrera on 10-02-2024 Calcium [Mass/Vol] 10.1 mg/dL Normal 7.6-11.0 [facility] Comment on above: Performed By: #### L 300.3900, L503.7505, L501.2450, L501.4021, L500.4050, L503.6005, L300.4310, L100.0100 ####[facility] [address] [place], [place], [address] Serum or plasma urea nitroge n measurement (mass/volume)Ordered By: Wale Barrera on 10-02-2024 Urea nitrogen [Mass/Vol] 30 mg/dL High 4-19 [facility] Comment on above: Performed By: #### L 300.3900, L503.7505, L501.2450, L501.4021, L500.4050, L503.6005, L300.4310, L100.0100 ####[facility] [address] [place], [place], [address] Sodium levelOrdered By: Wale Barrera on 10-02-2024 Sodium [Moles/Vol] 139 mmol/L Normal 133-145 [facility] Comment on above: Performed By: #### L 300.3900, L503.7505, L501.2450, L501.4021, L500.4050, L503.6005, L300.4310, L100.0100 ####[facility] [address] [place], [place], [phone] Squamous epithelial cells de tection in urine sediment by light microscopyOrdered By: Wale Barrera on 10-02-2024 Epithelial cells.squamous LM Ql (Urine sed) 5-10 SEEN /hpf 5-10 [facility] Total proteinOrdered By: Shalini Barrera on 10-02-2024 Protein [Mass/Vol] 8.0 g/dL 5.9-8.4 [facility] Troponin T.cardiac [Mass/vol ume] in Serum or Plasma by High sensitivity methodOrdered By: Wale Barrera on 10-02-2024 Troponin T.cardiac High sensitivity method [Mass/Vol] 13 ng/L <14 [facility] Troponin T.cardiac High sensitivity method [Mass/Vol] 15 ng/L High <14 [facility] Urinalysis, Completeon 10-02 BACTERIA 3+ /hpf Normal None Seen [facility] Comment on above: Order Comment: CLEAN CATCH Performed By: #### L 400.0001 #### [facility] [address] [place], [address] EPI,SQUAMOUS 5-10 SEEN Normal 5-10 [facility] Comment on above: Order Comment: CLEAN CATCH Performed By: #### L 400.0001 #### [facility] [address] [place], [address] WBC 5-10 SEEN Normal 0-5 [facility] Comment on above: Order Comment: CLEAN CATCH Performed By: #### L 400.0001 #### [facility] [address] [place], [address] Mucus Ql (Urine sed) 0 SEEN Normal [facility] Comment on above: Order Comment: CLEAN CATCH Performed By: #### L 400.0001 #### [facility] [address] [place], [address] RBC 0 SEEN Normal 0-5 [facility] Comment on above: Order Comment: CLEAN CATCH Performed By: #### L 400.0001 #### [facility] [address] [place], [address] Urine clarityOrdered By: Shalini Barrera on 10-02-2024 Clarity (U) Sl. Cloudy Clear [facility] Urine color determinationOrd ered By: Wale Barrera on 10-02-2024 Color (U) Yellow Yellow [facility] Urine cultureOrdered By: Shalini Barrera on 10-02-2024 Bacteria identified Cx Nom (U) ESBL Escherichia coli Abnormal [facility] Urine glucose detectionOrder ed By: Wale Barrera on 10-02-2024 Glucose Ql (U) Normal mg/dl Normal [facility] Urine leukocyte esterase det ection by dipstickOrdered By: Wale Barrera on 10-02-2024 Leukocyte esterase Test strip Ql (U) 100 /ul High Negative [facility] Urine pHOrdered By: Wale verduzco on 10-02-2024 pH (U) 6.0 [pH] 5.0 - 8.0 [facility] Urine sediment bacteria coun t by microscopy (number/high power field)Ordered By: Wale Barrera on 10-02-2024 Bacteria LM.HPF (Urine sed) [#/Area] 3 /[HPF] None Seen [facility] Urine specific gravity measu rementOrdered By: Wale Barrera on 10-02-2024 Specific gravity (U) [Rel density] 1.010 1.002-1.030 [facility] Urine urobilinogen measureme ntOrdered By: Wale Barrera on 10-02-2024 Urobilinogen Ql (U) Normal mg/dl Normal [facility] White blood cell (WBC) count Ordered By: Wale Barrera on 10-02-2024 WBC (Bld) [#/Vol] 7.4 10*3/uL Normal 4.4-11.0 [facility] Comment on above: Performed By: #### L 300.3900, L503.7505, L501.2450, L501.4021, L500.4050, L503.6005, L300.4310, L100.0100 ####[facility] [id number] [place], [address] White blood cell countOrdere d By: Wale Barrera on 10-02-2024 White blood cell count 5-10 SEEN /hpf 0-5 [facility] Cardiology Visit [facility] Cardiology Visit Report [facility] [address] [place], [place] [address] OFFICE VISIT Date of Service: 09/24/24 MR#: [id number] Acct: [id number] Name: JOSELINE ELLIS Rep #: [id number] : 1950 Provider: JANESSA ramires Age/Sex: 74/F [place] [facility] [place] Status: Signed HPI HPI History of Present Illness Details: This is a 74-year-old white female who presents today for an outpatient cardiovascular follow-up for paroxysmal atrial fibrillation, valvular heart disease, hyperlipidemia, and hypertension. She was evaluated in cardiovascular consultation at [facility] on 10-03-18 for concerns of atrial fibrillation in the setting of hypertension, hyperlipidemia, diabetes mellitus, DKA, renal insufficiency, LEIGH ANN with CPAP therapy in which she follows with Dr. Raymond, and concerns of an acute CVA. 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 Normal [facility] Wound Ctr History AND Physic gilberto 08-28-2024 Wound Ctr History & Physical [facility] [address] [place] [address] H P Exam - Wound Care 08/28/24 1139 MR#: [id number] Acct: [id number] Name: JOSELINE ELLIS Rep #: [id number] : 1950 74 From: Fatemeh Espinosa DPM [...] of time. 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 The patient has been using silver cell and Alberto wraps. The patient also experiences swelling and edema in her lower extremities. She sleeps in a bed at night. 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 Patient has no other complaints. 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 Normal [facility] ALP [Catalytic activity/Vol] Ordered By: Bernie Reagan on 08-20-2024 Serum or plasma alkaline phosphatase measurement 75 U/L 35-104 [facility] ALT [Catalytic activity/Vol] Ordered By: Bernie Reagan on 08-20-2024 Serum or plasma alanine aminotransferase (ALT) measurement 11 U/L <35 [facility] Absolute lymphocyte countOrd ered By: Bernie Reagan on 08-20-2024 Lymphocytes Auto (Unsp spec) [#/Vol] 1.02 10*3/uL 0.83-4.51 [facility] Absolute neutrophil countOrd ered By: Bernie Reagan on 08-20-2024 Absolute neutrophil count 6.7 X10^3/uL 2.0-7.7 [facility] Albumin [Mass/Vol]Ordered By : [facility] on 08-20-2024 Serum or plasma albumin measurement (mass/volume) 4.0 g/dL 3.4-4.8 [facility] Albumin/Globulin [Mass ratio ]Ordered By: [facility] Reagan on 08-20-2024 Serum or plasma albumin/globulin mass ratio 1.0 RATIO 0.9-2.4 [facility] Anion gap [Moles/Vol]Ordered By: [facility] Reagan on 08-20-2024 Anion gap in Serum or Plasma 11 - [facility] Anion gap in Serum or Plasma Ordered By: [facility] Garethderrick on 08-20-2024 Anion gap [Moles/Vol] 11 mmol/L 09-27 [facility] Automated lymphocyte count a s percentage of total leukocytesOrdered By: amandahanfordestephanie Reagan on 08-20-2024 Lymphocytes/100 WBC Auto (Unsp spec) 11.8 % Low 19-41 [facility] BUN/creatinine ratioOrdered By: [facility] Servinderrick on 08-20-2024 Urea nitrogen/Creatinine [Mass ratio] 24.3 mg/mg High 10-20 [facility] BUN/creatinine ratio 24.3 RATIO High 10-20 [facility] Basophil percentageOrdered B y: Bernie Reagan on 08-20-2024 Basophils/100 WBC (Bld) 0.7 % 0-1 [facility] Basophil percentage 0.7 % 0-1 [facility] Bilirubin, totalOrdered By: ambar Reagan on 08-20-2024 Bilirubin [Mass/Vol] 0.51 mg/dL 0.00-1.30 [facility] Bilirubin, total 0.51 mg/dL 0.00-1.30 [facility] CBC W/Diff, Automatedon Absolute Lymph 1.02 X10 3/uL Normal 0.83-4.51 [facility] Comment on above: Performed By: #### L 100.0100, L506.1001, L500.4050, L101.9900, L501.6710 ####[facility] [address] [place], [address] Absolute Neut 6.7 X10 3/uL Normal 2.0-7.7 [facility] Comment on above: Performed By: #### L 100.0100, L506.1001, L500.4050, L101.9900, L501.6710 ####[facility] [address], [address] Basophils/100 WBC (Bld) 0.7 % Normal 0-1 [facility] Comment on above: Performed By: #### L 100.0100, L506.1001, L500.4050, L101.9900, L501.6710 ####[facility] [address] [place], [address] Eosinophils/100 WBC (Bld) 4.4 % Normal 0-5 [facility] Comment on above: Performed By: #### L 100.0100, L506.1001, L500.4050, L101.9900, L501.6710 ####[facility] [address] [place], [address] Erythrocyte distribution width (RBC) [Ratio] 14.8 % High 11.6-14.6 [facility] Comment on above: Performed By: #### L 100.0100, L506.1001, L500.4050, L101.9900, L501.6710 ####[facility] [address] [place], [address] Hematocrit (Bld) [Volume fraction] 33.8 % Low 37-47 [facility] Comment on above: Performed By: #### L 100.0100, L506.1001, L500.4050, L101.9900, L501.6710 ####[facility] [address] [place], [address] Hemoglobin (Bld) [Mass/Vol] 10.6 g/dL Low 12.0-15.0 [facility] Comment on above: Performed By: #### L 100.0100, L506.1001, L500.4050, L101.9900, L501.6710 ####[facility] [address] [place], [address] IG% 0.600 Normal 0.0-0.9 [facility] Comment on above: Result Comment: IG% - Immature Granulocytes (promyelocytes, myelocytes and metamyelocytes) > 1% indicates that a LEFT SHIFT is Present. Performed By: #### L 100.0100, L506.1001, L500.4050, L101.9900, L501.6710 ####[facility] [address] [place], [address] Lymphocytes/100 WBC (Bld) 11.8 % Low 19-41 [facility] Comment on above: Performed By: #### L 100.0100, L506.1001, L500.4050, L101.9900, L501.6710 ####[facility] [address] [place], [address] MCH (RBC) [Entitic mass] 28.0 pg Normal 27.0-32.0 [facility] Comment on above: Performed By: #### L 100.0100, L506.1001, L500.4050, L101.9900, L501.6710 ####[facility] [address] [place], [address] MCHC (RBC) [Mass/Vol] 31.4 g/dL Low 32-36 [facility] Comment on above: Performed By: #### L 100.0100, L506.1001, L500.4050, L101.9900, L501.6710 ####[facility] [address] [place], [address] MCV (RBC) [Entitic vol] 89.2 fL Normal 81-99 [facility] Comment on above: Performed By: #### L 100.0100, L506.1001, L500.4050, L101.9900, L501.6710 ####[facility] [address] [place], [address] Monocytes/100 WBC (Bld) 5.7 % Normal 0-10 [facility] Comment on above: Performed By: #### L 100.0100, L506.1001, L500.4050, L101.9900, L501.6710 ####[facility] [address] [place], [address] Neutrophils/100 WBC (Bld) 76.8 % High 47-70 [facility] Comment on above: Performed By: #### L 100.0100, L506.1001, L500.4050, L101.9900, L501.6710 ####[facility] [address] [place], [address] Nucleated RBC (Bld) [#/Vol] 0 10*3/uL Normal 0-5 [facility] Comment on above: Performed By: #### L 100.0100, L506.1001, L500.4050, L101.9900, L501.6710 ####[facility] [address] [place], [address] Platelet mean volume (Bld) [Entitic vol] 10.2 fL Normal 6.2-12.0 [facility] Comment on above: Performed By: #### L 100.0100, L506.1001, L500.4050, L101.9900, L501.6710 ####[facility] [address] [place], [address] Platelets (Bld) [#/Vol] 280 10*3/uL Normal 150-450 [facility] Comment on above: Performed By: #### L 100.0100, L506.1001, L500.4050, L101.9900, L501.6710 ####[facility] [address] [place], [address] RBC (Bld) [#/Vol] 3.79 10*6/uL Low 4.2-5.4 [facility] Comment on above: Performed By: #### L 100.0100, L506.1001, L500.4050, L101.9900, L501.6710 ####[facility] [address] [place], [address] RDW SD 48.4 fl High 35.1-43.9 [facility] Comment on above: Performed By: #### L 100.0100, L506.1001, L500.4050, L101.9900, L501.6710 ####[facility] [address] [place], [address] WBC (Bld) [#/Vol] 8.7 10*3/uL Normal 4.4-11.0 [facility] Comment on above: Performed By: #### L 100.0100, L506.1001, L500.4050, L101.9900, L501.6710 ####[facility] [address] [place], [address] CRPon 08-20-2024 C-REACTIVE PROT 15.10 mg/L High 0.0-3.0 [facility] Comment on above: Performed By: #### L 100.0100, L506.1001, L500.4050, L101.9900, L501.6710 ####[facility] [address] [place], [address] CRP [Mass/Vol]Ordered By: Alex Reagan on 08-20-2024 Serum or plasma C reactive protein measurement (mass/volume) 15.10 mg/L High 0.0-3.0 [facility] Calcium [Mass/Vol]Ordered By : Bernie Reagan on 08-20-2024 Serum or plasma calcium measurement (mass/volume) 9.8 mg/dL 7.6-11.0 [facility] Carbon dioxide, total [Moles /volume] in Central venous bloodOrdered By: Bernie Reagan on 08-20-2024 CO2 [Moles/Vol] 22.9 mmol/L 21.0-32.0 [facility] Carbon dioxide, total [Moles/volume] in Central venous blood 22.9 mmol/L 21.0-32.0 [facility] Chloride assayOrdered By: Alex Reagan on 08-20-2024 Chloride [Moles/Vol] 106 mmol/L 98-108 [facility] Chloride assay 106 mmol/L 98-108 [facility] Comprehensive Metabolic Prof ilon 08-20-2024 Albumin [Mass/Vol] 4.0 g/dL Normal 3.4-4.8 [facility] Comment on above: Performed By: #### L 100.0100, L506.1001, L500.4050, L101.9900, L501.6710 ####[facility] [address], [address] Albumin/Globulin [Mass ratio] 1.0 {ratio} Normal 0.9-2.4 [facility] Comment on above: Performed By: #### L 100.0100, L506.1001, L500.4050, L101.9900, L501.6710 ####[facility] [address] [place], [address] ALK PHOS 75 U/L Normal 35-104 [facility] Comment on above: Performed By: #### L 100.0100, L506.1001, L500.4050, L101.9900, L501.6710 ####[facility] [address] [place], [address] ALT [Catalytic activity/Vol] 11 U/L Normal <=34 [facility] Comment on above: Performed By: #### L 100.0100, L506.1001, L500.4050, L101.9900, L501.6710 ####[facility] [address] [place], [address] AST [Catalytic activity/Vol] 20 U/L Normal <=31 [facility] Comment on above: Performed By: #### L 100.0100, L506.1001, L500.4050, L101.9900, L501.6710 ####[facility] [address] [place], [address] Bilirubin [Mass/Vol] 0.51 mg/dL Normal 0.00-1.30 [facility] Comment on above: Performed By: #### L 100.0100, L506.1001, L500.4050, L101.9900, L501.6710 ####[facility] [address] [place], [address] BUN/CRE 24.3 RATIO High 10-20 [facility] Comment on above: Performed By: #### L 100.0100, L506.1001, L500.4050, L101.9900, L501.6710 ####[facility] [address] [place], [address] Calcium [Mass/Vol] 9.8 mg/dL Normal 7.6-11.0 [facility] Comment on above: Performed By: #### L 100.0100, L506.1001, L500.4050, L101.9900, L501.6710 ####[facility] [address] [place], [address] Chloride [Moles/Vol] 106 mmol/L Normal 98-108 [facility] Comment on above: Performed By: #### L 100.0100, L506.1001, L500.4050, L101.9900, L501.6710 ####[facility] [address] [place], [address] CO2 [Moles/Vol] 22.9 mmol/L Normal 21.0-32.0 [facility] Comment on above: Performed By: #### L 100.0100, L506.1001, L500.4050, L101.9900, L501.6710 ####[facility] [address] [place], [address] Creatinine [Mass/Vol] 1.14 mg/dL Normal 0.70-1.20 [facility] Comment on above: Performed By: #### L 100.0100, L506.1001, L500.4050, L101.9900, L501.6710 ####[facility] [address] [place], [address] GAP 11 Normal 5-15 [facility] Comment on above: Performed By: #### L 100.0100, L506.1001, L500.4050, L101.9900, L501.6710 ####[facility] [address] [place], [address] GFR/1.73 sq M.predicted among non-blacks MDRD (S/P/Bld) [Vol rate/Area] 51 mL/min/{1.73_m2} Low >60 [facility] Comment on above: Result Comment: mL/m in/1.73m2 CKD-EPI Creatinine Equation (2020) Performed By: #### L 100.0100, L506.1001, L500.4050, L101.9900, L501.6710 ####[facility] [address] [place], [address] Globulin (S) [Mass/Vol] 3.9 g/dL Normal 2.2-4.2 [facility] Comment on above: Performed By: #### L 100.0100, L506.1001, L500.4050, L101.9900, L501.6710 ####[facility] [address] [place], [address] Glucose [Mass/Vol] 115 mg/dL High 70-99 [facility] Comment on above: Performed By: #### L 100.0100, L506.1001, L500.4050, L101.9900, L501.6710 ####[facility] [address] [place], [address] Potassium [Moles/Vol] 4.9 mmol/L Normal 3.3-5.1 [facility] Comment on above: Performed By: #### L 100.0100, L506.1001, L500.4050, L101.9900, L501.6710 ####[facility] [address] [place], [address] Sodium [Moles/Vol] 140 mmol/L Normal 133-145 [facility] Comment on above: Performed By: #### L 100.0100, L506.1001, L500.4050, L101.9900, L501.6710 ####[facility] [address] [place], [address] T PROT 7.8 g/dL Normal 5.9-8.4 [facility] Comment on above: Performed By: #### L 100.0100, L506.1001, L500.4050, L101.9900, L501.6710 ####[facility] [address] [place], [address] Urea nitrogen [Mass/Vol] 28 mg/dL High 4-19 [facility] Comment on above: Performed By: #### L 100.0100, L506.1001, L500.4050, L101.9900, L501.6710 ####[facility] [address] [place], [address] Creatinine [Mass/Vol]Ordered By: Bernie Reagan on 08-20-2024 Serum creatinine measurement (mass/volume) 1.14 mg/dL 0.70-1.20 [facility] ESR (Bld) [Velocity]Ordered By: ambar Reagan on 08-20-2024 Erythrocyte sedimentation rate 43 mm/hr High 0-30 [facility] Eosinophil percentageOrdered By: amandahanfordestephanie Reagan on 08-20-2024 Eosinophils/100 WBC (Bld) 4.4 % 0-5 [facility] Eosinophil percentage 4.4 % 0-5 [facility] Erythrocyte Sed Rateon 08-20 SED RATE 43 mm/hr High 0-30 [facility] Comment on above: Performed By: #### L 100.0100, L506.1001, L500.4050, L101.9900, L501.6710 ####[facility] [address] [place], [address] Erythrocyte distribution wid th (RBC) [Ratio]Ordered By: amandahanfordestephanie Reagan on 08-20-2024 Erythrocyte distribution width ratio 14.8 % High 11.6-14.6 [facility] Erythrocyte distribution width standard deviation 48.4 fl High 35.1-43.9 [facility] Erythrocyte distribution wid th ratioOrdered By: [facility] on 08-20-2024 Erythrocyte distribution width (RBC) [Ratio] 14.8 % High 11.6-14.6 [facility] Erythrocyte distribution wid th standard deviationOrdered By: [facility] on 08-20-2024 Erythrocyte distribution width (RBC) [Ratio] 48.4 fl High 35.1-43.9 [facility] Erythrocyte sedimentation ra teOrdered By: Bernie Reagan on 08-20-2024 ESR (Bld) [Velocity] 43 mm/h High 0-30 [facility] GFR/1.73 sq M.predicted ankit g non-blacks MDRD (S/P/Bld) [Vol rate/Area]Ordered By: Bernie Reagan on 08-20-2024 Glomerular filtration rate (GFR) estimation/1.73 sq m using serum, plasma, or whole b 51 Low >60 [facility] Glomerular filtration rate ( GFR) estimation/1.73 sq m using serum, plasma, or whole bOrdered By: Bernie Reagan on 08-20-2024 GFR/1.73 sq M.predicted among non-blacks MDRD (S/P/Bld) [Vol rate/Area] 51 mL/min/{1.73_m2} Low >60 [facility] Glucose [Mass/Vol]Ordered By : Bernie Reagan on 08-20-2024 Serum glucose measurement (mass/volume) 115 mg/dL High 70-99 [facility] Hematocrit Auto (Bld) [Volum e fraction]Ordered By: Bernie Reagan on 08-20-2024 Hematocrit (Bld) [Volume fraction] 33.8 % Low 37-47 [facility] Automated blood hematocrit (percentage) 33.8 % Low 37-47 [facility] Hemoglobin measurementOrdere d By: Bernie Reagan on 08-20-2024 Hemoglobin (Bld) [Mass/Vol] 10.6 g/dL Low 12.0-15.0 [facility] Hemoglobin measurement 10.6 g/dL Low 12.0-15.0 [facility] Immature granulocytes/100 WB C Auto (Bld)Ordered By: Bernie Reagan on 08-20-2024 Immature granulocytes/100 WBC (Bld) 0.600 % 0.0-0.9 [facility] Automated immature granulocyte percentage 0.600 % 0.0-0.9 [facility] Internal Medicine Office Vis iton 08-20-2024 Internal Medicine Office Visit [facility] [place], [place] [address] OFFICE VISIT Date of Service: 08/20/24 MR#: [id number] Acct: [id number] Name: JOSELINE ELLIS Rep #: [id number] : 1950 Provider: Dr. Bernie benjamin MD Age/Sex: 74/F [place] [facility] [place] Status: Signed Intake Vital Signs 05/21/24 13:50 [...] her right fifth toe. [facility] (Updated 08/20/24 @ 10:54 by [...] transient Osteomyelitis of finger of right hand shelter (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 Non-pressure chronic ulcer [...] Abnormal mamm (more content not included)... Normal [facility] Lymphocytes Auto (Unsp spec) [#/Vol]Ordered By: Bernie Reagan on 08-20-2024 Absolute lymphocyte count 1.02 X10^3/uL 0.83-4.51 [facility] Lymphocytes/100 WBC Auto (Un sp spec)Ordered By: Bernie Reagan on 08-20-2024 Automated lymphocyte count as percentage of total leukocytes 11.8 % Low 19-41 [facility] MCV (RBC) [Entitic vol]Order ed By: Bernie Reagan on 08-20-2024 MCV (mean corpuscular volume) determination 89.2 fL 81-99 [facility] MCV (mean corpuscular volume ) determinationOrdered By: Bernie Reagan on 08-20-2024 MCV (RBC) [Entitic vol] 89.2 fL 81-99 [facility] Mean corpuscular hemoglobin (MCH) determinationOrdered By: Bernie Reagan on 08-20-2024 MCH (RBC) [Entitic mass] 28.0 pg 27.0-32.0 [facility] Mean corpuscular hemoglobin (MCH) determination 28.0 pg 27.0-32.0 [facility] Mean corpuscular hemoglobin concentration (MCHC) determinationOrdered By: Bernie Reagan on 08-20-2024 Mean corpuscular hemoglobin concentration (MCHC) determination 31.4 g/dL Low 32-36 [facility] Mean platelet volume determi nationOrdered By: Yahirhanfordestephanie Reagan on 08-20-2024 Mean platelet volume determination 10.2 fl 6.2-12.0 [facility] Monocyte percentageOrdered B y: Bernie Reagan on 08-20-2024 Monocytes/100 WBC (Bld) 5.7 % 0-10 [facility] Monocyte percentage 5.7 % 0-10 [facility] Neutrophil percentageOrdered By: Bernie Reagan on 08-20-2024 Neutrophils/100 WBC (Bld) 76.8 % High 47-70 [facility] Neutrophil percentage 76.8 % High 47-70 [facility] No Panel InformationOrdered By: Bernie Reagan on 08-20-2024 20 U/L <32 [facility] 6.6 % High 4.2-6.3 [facility] Nucleated red blood cell per centageOrdered By: Bernie Reagan on 08-20-2024 Nucleated red blood cell percentage 0 % 0-5 [facility] Platelet countOrdered By: Alex Reagan on 08-20-2024 Platelets (Bld) [#/Vol] 280 10*3/uL 150-450 [facility] Platelet count 280 K/mm3 150-450 [facility] Potassium (Unsp spec) [Mass/ Vol]Ordered By: Bernie Reagan on 08-20-2024 Potassium measurement (mass/volume) 4.9 mmol/L 3.3-5.1 [facility] Potassium measurement (mass/ volume)Ordered By: Bernie Reagan on 08-20-2024 Potassium (Unsp spec) [Mass/Vol] 4.9 mmol/L 3.3-5.1 [facility] RBC Auto (Bld) [#/Vol]Ordere d By: Bernie Reagan on 08-20-2024 RBC (Bld) [#/Vol] 3.79 10*6/uL Low 4.2-5.4 [facility] Automated blood erythrocyte count 3.79 M/mm3 Low 4.2-5.4 [facility] Serum creatinine measurement (mass/volume)Ordered By: Bernie Reagan on 08-20-2024 Creatinine [Mass/Vol] 1.14 mg/dL 0.70-1.20 [facility] Serum globulin measurementOr dered By: Bernie Reagan on 08-20-2024 Globulin (S) [Mass/Vol] 3.9 g/dL 2.2-4.2 [facility] Serum globulin measurement 3.9 g/dL 2.2-4.2 [facility] Serum glucose measurement (m ass/volume)Ordered By: Bernie Reagan on 08-20-2024 Glucose [Mass/Vol] 115 mg/dL High 70-99 [facility] Serum or plasma C reactive p rotein measurement (mass/volume)Ordered By: Bernie Reagan on 08-20-2024 CRP [Mass/Vol] 15.10 mg/L High 0.0-3.0 [facility] Serum or plasma alanine bean otransferase (ALT) measurementOrdered By: Bernie Reagan on 08-20-2024 ALT [Catalytic activity/Vol] 11 U/L <35 [facility] Serum or plasma albumin keyona urement (mass/volume)Ordered By: Bernie Reagan on 08-20-2024 Albumin [Mass/Vol] 4.0 g/dL 3.4-4.8 [facility] Serum or plasma albumin/glob ulin mass ratioOrdered By: Bernie Reagan on 08-20-2024 Albumin/Globulin [Mass ratio] 1.0 {ratio} 0.9-2.4 [facility] Serum or plasma alkaline kyle sphatase measurementOrdered By: Bernie Reagan on 08-20-2024 ALP [Catalytic activity/Vol] 75 U/L 35-104 [facility] Serum or plasma calcium keyona urement (mass/volume)Ordered By: Bernie Reagan on 08-20-2024 Calcium [Mass/Vol] 9.8 mg/dL 7.6-11.0 [facility] Serum or plasma urea nitroge n measurement (mass/volume)Ordered By: Bernie Reagan on 08-20-2024 Urea nitrogen [Mass/Vol] 28 mg/dL High 4-19 [facility] Sodium levelOrdered By: Yahir Reagan on 08-20-2024 Sodium [Moles/Vol] 140 mmol/L 133-145 [facility] Sodium level 140 mmol/L 133-145 [facility] Toe(s) Min 2 Viewson 025 Toe(s) Min 2 Views [facility] Imaging Services [address] [place] [address] Toe(s) Min 2 Views MR#: [id number] Acct: [id number] Name: JOSELINE ELLIS Rep #: [id number] : 1950 F 74 From: Tree Zhou i DO PCP: Dr. Bernie Reagan MD Status: REG CLI Study: Toe(s) Min 2 Views Date of Exam: 08/20/24 Exam# [id number] Ordering Dr: Bernie Reagan MD PROCEDURE: Right [...] above, likely due to osteoarthritis. 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 Normal [facility] Total proteinOrdered By: Samy Reagan on 08-20-2024 Protein [Mass/Vol] 7.8 g/dL 5.9-8.4 [facility] Total protein 7.8 g/dL 5.9-8.4 [facility] Urea nitrogen [Mass/Vol]Orde red By: Bernie Reagan on 08-20-2024 Serum or plasma urea nitrogen measurement (mass/volume) 28 mg/dL High 4-19 [facility] Vitamin D, 25-hydroxyOrdered By: Bernie Reagan on 08-20-2024 Vitamin D, 25-hydroxy 33.9 ng/mL 30-100 [facility] Vitamin D,25 Hydroxyon 08-20 Vitamin D 25-OH 33.9 ng/mL Normal 30-100 [facility] Comment on above: Result Comment: May min D Status Deficiency: <20 ng/mL (50nmol/L) Insufficiency: 20-30 ng/mL (50-75 nmol/L) Sufficiency: 30-100 ng/mL (75-250 nmol/L) Toxicity: >100 ng/mL (>250 nmol/L) Performed By: #### L 100.0100, L506.1001, L500.4050, L101.9900, L501.6710 ####[facility] [address], [address] White blood cell (WBC) count Ordered By: Bernie Reagan on 08-20-2024 WBC (Bld) [#/Vol] 8.7 10*3/uL 4.4-11.0 [facility] White blood cell (WBC) count 8.7 K/mm3 4.4-11.0 [facility] ALP [Catalytic activity/Vol] Ordered By: Bernie Reagan on 05-21-2024 Serum or plasma alkaline phosphatase measurement 85 U/L 45-117 [facility] ALT [Catalytic activity/Vol] Ordered By: Bernie Reagan on 05-21-2024 Serum or plasma alanine aminotransferase (ALT) measurement 24 U/L 13-56 [facility] Albumin [Mass/Vol]Ordered By : Bernie Reagan on 05-21-2024 Serum or plasma albumin measurement (mass/volume) 3.6 g/dL 3.2-5.0 [facility] Albumin to globulin ratioOrd ered By: Bernie Reagan on 05-21-2024 Albumin to globulin ratio 0.8 RATIO Low 0.9-2.4 [facility] Bilirubin, totalOrdered By: Bernie Reagan on 05-21-2024 Bilirubin, total 0.50 mg/dL 0.20-1.00 [facility] Blood urea nitrogen (BUN)/cr eatinine ratioOrdered By: Benrie Reagan on 05-21-2024 Blood urea nitrogen (BUN)/creatinine ratio 22.3 RATIO High 10-20 [facility] Calcium [Mass/Vol]Ordered By : Bernie Reagan on 05-21-2024 Serum or plasma calcium measurement (mass/volume) 9.8 mg/dL 8.5-10.1 [facility] Carbon dioxide measurementOr dered By: Bernie Reagan on 05-21-2024 Carbon dioxide measurement 26.0 mmol/L 21.0-32.0 [facility] Chloride measurementOrdered By: Bernie Reagan on 05-21-2024 Chloride measurement 106 mmol/L 98-107 [facility] Cholesterol [Mass/Vol]Ordere d By: Bernie Reagan on 05-21-2024 Serum or plasma cholesterol measurement (mass/volume) 176 mg/dL <200 [facility] Comprehensive Metabolic Prof ilon 05-21-2024 Albumin [Mass/Vol] 3.6 g/dL Normal 3.2-5.0 [facility] Comment on above: Performed By: #### L 500.4050, L500.4100, L501.9985 ####[facility] [address] [place], [address] Albumin/Globulin [Mass ratio] 0.8 {ratio} Low 0.9-2.4 [facility] Comment on above: Performed By: #### L 500.4050, L500.4100, L501.9985 ####[facility] [address] [place], [address] ALK P 85 U/L Normal 45-117 [facility] Comment on above: Performed By: #### L 500.4050, L500.4100, L501.9985 ####[facility] [address] [place], [address] ALT [Catalytic activity/Vol] 24 U/L Normal 13-56 [facility] Comment on above: Performed By: #### L 500.4050, L500.4100, L501.9985 ####[facility] [address] [place], [address] AST [Catalytic activity/Vol] 20 U/L Normal 15-37 [facility] Comment on above: Performed By: #### L 500.4050, L500.4100, L501.9985 ####[facility] [address] [place], [address] Bilirubin [Mass/Vol] 0.50 mg/dL Normal 0.20-1.00 [facility] Comment on above: Result Comment: For patients on eltrombopag therapy, use of Dimension Dowling TBIL is not recommended. Performed By: #### L 500.4050, L500.4100, L501.9985 ####[facility] [address] [place], [address] BUN/CRE 22.3 RATIO High 10-20 [facility] Comment on above: Performed By: #### L 500.4050, L500.4100, L501.9985 ####[facility] [address] [place], [address] CA,Total 9.8 mg/dL Normal 8.5-10.1 [facility] Comment on above: Performed By: #### L 500.4050, L500.4100, L501.9985 ####[facility] [address] [place], [address] Chloride [Moles/Vol] 106 mmol/L Normal 98-107 [facility] Comment on above: Performed By: #### L 500.4050, L500.4100, L501.9985 ####[facility] [address] [place], [address] CO2 [Moles/Vol] 26.0 mmol/L Normal 21.0-32.0 [facility] Comment on above: Performed By: #### L 500.4050, L500.4100, L501.9985 ####[facility] [address] [place], [address] Creatinine [Mass/Vol] 1.21 mg/dL High 0.55-1.02 [facility] Comment on above: Result Comment: The validity of the calculated GFR GFRAA in patients over 70 years has not been determined. Clinical correlation is essential. Performed By: #### L 500.4050, L500.4100, L501.9985 ####[facility] [address] [place], [address] EST GFR - AA 56 mL/min Low >60 [facility] Comment on above: Result Comment: Afri can Cuban GFR Calc Performed By: #### L 500.4050, L500.4100, L501.9985 ####[facility] [address] [place], [address] GAP 7 Normal 5-15 [facility] Comment on above: Performed By: #### L 500.4050, L500.4100, L501.9985 ####[facility] [address] [place], [address] GFR/1.73 sq M.predicted among non-blacks MDRD (S/P/Bld) [Vol rate/Area] 46 mL/min/{1.73_m2} Low >60 [facility] Comment on above: Result Comment: Non- GFR Calc Performed By: #### L 500.4050, L500.4100, L501.9985 ####[facility] [address] [place], [address] Globulin (S) [Mass/Vol] 4.3 g/dL High 2.2-4.2 [facility] Comment on above: Performed By: #### L 500.4050, L500.4100, L501.9985 ####[facility] [address] [place], [address] Glucose [Mass/Vol] 186 mg/dL High 74-106 [facility] Comment on above: Result Comment: Fast ing Glucose result greater than or equal to 126 mg/dL suggests DIABETES MELLITUS per A.D.A. criteria. Performed By: #### L 500.4050, L500.4100, L501.9985 ####[facility] [address] [place], [address] Potassium [Moles/Vol] 4.8 mmol/L Normal 3.5-5.1 [facility] Comment on above: Performed By: #### L 500.4050, L500.4100, L501.9985 ####[facility] [address] [place], [address] Sodium [Moles/Vol] 138 mmol/L Normal 136-145 [facility] Comment on above: Performed By: #### L 500.4050, L500.4100, L501.9985 ####[facility] [address] [place], [address] T PROT 7.9 g/dL Normal 6.4-8.2 [facility] Comment on above: Performed By: #### L 500.4050, L500.4100, L501.9985 ####[facility] [address] [place], [address] Urea nitrogen [Mass/Vol] 27 mg/dL High 7-18 [facility] Comment on above: Performed By: #### L 500.4050, L500.4100, L501.9985 ####[facility] [address] [place], [address] Creatinine [Mass/Vol]Ordered By: Bernie Reagan on 05-21-2024 Serum or plasma creatinine measurement (mass/volume) 1.21 mg/dL High 0.55-1.02 [facility] Estimated glomerular filtrat ion rate (GFR) AmericanOrdered By: Bernie Reagan on 05-21-2024 Estimated glomerular filtration rate (GFR) 56 mL/min Low >60 [facility] Glomerular filtration rate ( GFR) estimationOrdered By: Bernie Reagan on 05-21-2024 Glomerular filtration rate (GFR) estimation 46 mL/min Low >60 [facility] Glucose measurementOrdered B y: Bernie Reagan on 05-21-2024 Glucose measurement 186 mg/dL High 74-106 [facility] HbA1c (Bld) [Mass fraction]O rdered By: Alexambar Reagan on 05-21-2024 Hemoglobin A1c percentage 7.2 % High 3.8-5.6 [facility] Hemoglobin A1con 05-21-2024 HbA1c (Bld) [Mass fraction] 7.2 % High 3.8-5.6 [facility] Comment on above: Result Comment: Norm al < 5.7 % Prediabetic 5.7 - 6.4 % Diabetic >or= 6.5 % Please note range changes. Performed By: #### L 500.4050, L500.4100, L501.9985 ####[facility] [address] [place], [address] High density lipoprotein (HD L) measurementOrdered By: Alexambar Reagan on 05-21-2024 High density lipoprotein (HDL) measurement 66 mg/dL >40 [facility] Internal Medicine Office Vis iton 05-21-2024 Internal Medicine Office Visit [facility] [address] [place] [address] OFFICE VISIT Date of Service: 05/21/24 MR#: [id number] Acct: [id number] Name: JOSELINE ELLIS Rep #: [id number] : 1950 Provider: Dr. 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 Normal [facility] Lipid Profileon 05-21-2024 Cholesterol [Mass/Vol] 176 mg/dL Normal 200 [facility] Comment on above: Result Comment: <200 mg/dL Desirable 200-240 mg/dL Borderline >240 mg/dL High Risk Performed By: #### L 500.4050, L500.4100, L501.9985 ####[facility] [address] [place], [address] Cholesterol in HDL [Mass/Vol] 66 mg/dL Normal [facility] Comment on above: Result Comment: The drugs N-Acetylcysteine and Metamizole may falsely depress this assay. Reference Range HDL <40 mg/dL Low HDL Cholesterol HDL >or= 60 mg/dL High HDL Cholesterol Performed By: #### L 500.4050, L500.4100, L501.9985 ####[facility] [address] [place], [address] Cholesterol in LDL [Mass/Vol] 85 mg/dL Normal 0-130 [facility] Comment on above: Performed By: #### L 500.4050, L500.4100, L501.9985 ####[facility] [address] [place], [address] Cholesterol in VLDL [Mass/Vol] 25 mg/dL Normal 5-40 [facility] Comment on above: Performed By: #### L 500.4050, L500.4100, L501.9985 ####[facility] [address] [place], [address] Triglyceride [Mass/Vol] 125 mg/dL Normal [facility] Comment on above: Result Comment: The drugs N-Acetylcysteine and Metamizole may falsely depress this assay. Serum Triglycerides Reference Interval Normal <150 mg/dL Borderline high 150 - 199 mg/dL High 200 - 499 mg/dL Very High > or = 500 mg/dL Performed By: #### L 500.4050, L500.4100, L501.9985 ####[facility] [address], [address] Low density lipoprotein (LDL ) cholesterol measurementOrdered By: Bernie Reagan on 05-21-2024 Low density lipoprotein (LDL) cholesterol measurement 85 mg/dL 0-130 [facility] No Panel InformationOrdered By: Bernie Reagan on 05-21-2024 20 U/L 15-37 [facility] Potassium measurementOrdered By: Bernie Reagan on 05-21-2024 Potassium measurement 4.8 mmol/L 3.5-5.1 [facility] Serum anion gap measurementO rdered By: Bernie Reagan on 05-21-2024 Serum anion gap measurement 7 5-15 [facility] Serum globulin measurementOr dered By: Bernie Reagan on 05-21-2024 Serum globulin measurement 4.3 g/dL High 2.2-4.2 [facility] Sodium levelOrdered By: Yahir Reagan on 05-21-2024 Sodium level 138 mmol/L 136-145 [facility] Total proteinOrdered By: Samy Reagan on 05-21-2024 Total protein 7.9 g/dL 6.4-8.2 [facility] Triglycerides measurementOrd ered By: Bernie Reagan on 05-21-2024 Triglycerides measurement 125 mg/dL <199 [facility] Urea nitrogen [Mass/Vol]Orde red By: Bernie Reagan on 05-21-2024 Serum or plasma urea nitrogen measurement (mass/volume) 27 mg/dL High 7-18 [facility] Very low density lipoprotein (VLDL) cholesterol measurementOrdered By: Bernie Reagan on 05-21-2024 Very low density lipoprotein (VLDL) cholesterol measurement 25 mg/dL 5-40 [facility] Internal Medicine Office Vis iton 02-09-2024 Internal Medicine Office Visit [facility] [address] [place] [address] [address] [place] [address] OFFICE VISIT Date of Service: 02/09/24 MR#: [id number] Acct: [id number] Name: JOSELINE ELLIS Rep #: [id number] : 1950 Provider: TERA Barnett Age/Sex: 74/F Location[place] [facility] Status: Signed Intake Vital Signs 01/25/24 09:39 [...] 2 W FU 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 Normal [facility] Inital Evaluation (1) - PTon 12-26-2023 Inital Evaluation (1) - PT [facility] Physical Therapy [facility] [address] [place] [address] / REHABILITATION SERVICES INITIAL EVALUATION MR#: [id number] Acct: [id number] Name: JOSELINE ELLIS Rep #: [id number] : 1950 73 From: Tiff BELL Referring Dr.: TERA Barnett Status: REG RCR Insurance: [facility] MEDIC[employer] S[employer] PAY INSURANCE Patient's [...] flexed trunk, small steppage steps (does not turkey picker feet), WBOS. She needed to sit [...] to be FAXED BACK to us at [phone] for Medicare purposes. For Medicare only, by signing this I certify the plan of care. Please let me know if there are questions or concerns regarding this plan of c (more content not included)... Normal [facility] CBC W/Diff, Automatedon 07-2 Absolute Lymph 1.33 X10 3/uL Normal 0.83-4.51 [facility] Comment on above: Performed By: #### L 100.0100, L500.4100, L500.4050 #### [facility] Laboratory [address] [facility] [place] [address] Absolute Neut 6.2 X10 3/uL Normal 2.0-7.7 [facility] Comment on above: Performed By: #### L 100.0100, L500.4100, L500.4050 #### [facility] [address] [place], [address] Basophils/100 WBC (Bld) 0.5 % Normal 0-1 [facility] Comment on above: Performed By: #### L 100.0100, L500.4100, L500.4050 #### [facility] [address] [place], [address] Eosinophils/100 WBC (Bld) 3.9 % Normal 0-5 [facility] Comment on above: Performed By: #### L 100.0100, L500.4100, L500.4050 #### [facility] [address] [place], [address] Erythrocyte distribution width (RBC) [Ratio] 13.8 % Normal 11.6-14.6 [facility] Comment on above: Performed By: #### L 100.0100, L500.4100, L500.4050 #### [facility] [address] [place], [address] Hematocrit (Bld) [Volume fraction] 38.0 % Normal 37-47 [facility] Comment on above: Performed By: #### L 100.0100, L500.4100, L500.4050 #### [facility] [address] [place], [address] Hemoglobin (Bld) [Mass/Vol] 12.2 g/dL Normal 12.0-15.0 [facility] Comment on above: Performed By: #### L 100.0100, L500.4100, L500.4050 #### [facility] [address] [place], [address] IG% 0.500 Normal 0.0-0.9 [facility] Comment on above: Result Comment: IG% - Immature Granulocytes (promyelocytes, myelocytes and metamyelocytes) > 1% indicates that a LEFT SHIFT is Present. Performed By: #### L 100.0100, L500.4100, L500.4050 #### [facility] [address] [place], [address] Lymphocytes/100 WBC (Bld) 15.8 % Low 19-41 [facility] Comment on above: Performed By: #### L 100.0100, L500.4100, L500.4050 #### [facility] [address] [place], [address] MCH (RBC) [Entitic mass] 28.2 pg Normal 27.0-32.0 [facility] Comment on above: Performed By: #### L 100.0100, L500.4100, L500.4050 #### [facility] [address] [place], [address] MCHC (RBC) [Mass/Vol] 32.1 g/dL Normal 32-36 [facility] Comment on above: Performed By: #### L 100.0100, L500.4100, L500.4050 #### [facility] [address] [place], [address] MCV (RBC) [Entitic vol] 87.8 fL Normal 81-99 [facility] Comment on above: Performed By: #### L 100.0100, L500.4100, L500.4050 #### [facility] [address] [place], [address] Monocytes/100 WBC (Bld) 6.2 % Normal 0-10 [facility] Comment on above: Performed By: #### L 100.0100, L500.4100, L500.4050 #### [facility] [address] [place], [address] Neutrophils/100 WBC (Bld) 73.1 % High 47-70 [facility] Comment on above: Performed By: #### L 100.0100, L500.4100, L500.4050 #### [facility] [address] [place], [address] Nucleated RBC (Bld) [#/Vol] 0 10*3/uL Normal 0-5 [facility] Comment on above: Performed By: #### L 100.0100, L500.4100, L500.4050 #### [facility] [address] [place], [address] Platelet mean volume (Bld) [Entitic vol] 9.7 fL Normal 6.2-12.0 [facility] Comment on above: Performed By: #### L 100.0100, L500.4100, L500.4050 #### [facility] [address] [place], [address] Platelets (Bld) [#/Vol] 280 10*3/uL Normal 150-450 [facility] Comment on above: Performed By: #### L 100.0100, L500.4100, L500.4050 #### [facility] [address] [place], [address] RBC (Bld) [#/Vol] 4.33 10*6/uL Normal 4.2-5.4 [facility] Comment on above: Performed By: #### L 100.0100, L500.4100, L500.4050 #### [facility] [address] [place], [address] RDW SD 44.1 fl High 35.1-43.9 [facility] Comment on above: Performed By: #### L 100.0100, L500.4100, L500.4050 #### [facility] [address] [place], [address] WBC (Bld) [#/Vol] 8.4 10*3/uL Normal 4.4-11.0 [facility] Comment on above: Performed By: #### L 100.0100, L500.4100, L500.4050 #### [facility] [address] [place], [address] Comprehensive Metabolic [facility] 12-07-2023 Albumin [Mass/Vol] 3.4 g/dL Normal 3.2-5.0 [facility] Comment on above: Performed By: #### L 100.0100, L500.4100, L500.4050 #### [facility] [address] [place], [address] Albumin/Globulin [Mass ratio] 0.7 {ratio} Low 0.9-2.4 [facility] Comment on above: Performed By: #### L 100.0100, L500.4100, L500.4050 #### [facility] [address] [place], [address] ALK P 86 U/L Normal 45-117 [facility] Comment on above: Performed By: #### L 100.0100, L500.4100, L500.4050 #### [facility] [address] [place], [address] ALT [Catalytic activity/Vol] 24 U/L Normal 13-56 [facility] Comment on above: Performed By: #### L 100.0100, L500.4100, L500.4050 #### [facility] [address] [place], [address] AST [Catalytic activity/Vol] 21 U/L Normal 15-37 [facility] Comment on above: Performed By: #### L 100.0100, L500.4100, L500.4050 #### [facility] [address] [place], [address] Bilirubin [Mass/Vol] 0.60 mg/dL Normal 0.20-1.00 [facility] Comment on above: Result Comment: For patients on eltrombopag therapy, use of Dimension [place] TBIL is not recommended. Performed By: #### L 100.0100, L500.4100, L500.4050 #### [facility] [address] [place], [address] BUN/CRE 19.8 RATIO Normal 10-20 [facility] Comment on above: Performed By: #### L 100.0100, L500.4100, L500.4050 #### [facility] [address] [place], [address] CA,Total 9.5 mg/dL Normal 8.5-10.1 [facility] Comment on above: Performed By: #### L 100.0100, L500.4100, L500.4050 #### [facility] [address], [address] Chloride [Moles/Vol] 104 mmol/L Normal 98-107 [facility] Comment on above: Performed By: #### L 100.0100, L500.4100, L500.4050 #### [facility] [address] [place], [address] CO2 [Moles/Vol] 25.0 mmol/L Normal 21.0-32.0 [facility] Comment on above: Performed By: #### L 100.0100, L500.4100, L500.4050 #### [facility] [address] [place], [address] Creatinine [Mass/Vol] 1.16 mg/dL High 0.55-1.02 [facility] Comment on above: Result Comment: The validity of the calculated GFR GFRAA in patients over 70 years has not been determined. Clinical correlation is essential. Performed By: #### L 100.0100, L500.4100, L500.4050 #### [facility] [address] [place], [address] EST GFR - AA 59 mL/min Low >60 [facility] Comment on above: Result Comment: Afri can Cuban GFR Calc Performed By: #### L 100.0100, L500.4100, L500.4050 #### [facility] [address] [place], [address] GAP 7 Normal 5-15 [facility] Comment on above: Performed By: #### L 100.0100, L500.4100, L500.4050 #### [facility] [address] [place], [address] GFR/1.73 sq M.predicted among non-blacks MDRD (S/P/Bld) [Vol rate/Area] 49 mL/min/{1.73_m2} Low >60 [facility] Comment on above: Result Comment: Non- GFR Calc Performed By: #### L 100.0100, L500.4100, L500.4050 #### [facility] [address] [place], [address] Globulin (S) [Mass/Vol] 4.6 g/dL High 2.2-4.2 [facility] Comment on above: Performed By: #### L 100.0100, L500.4100, L500.4050 #### [facility] [address] [place], [address] Glucose [Mass/Vol] 217 mg/dL High 74-106 [facility] Comment on above: Result Comment: Gluc ose result greater than or equal to 200 mg/dL suggests DIABETES MELLITUS per A.D.A. criteria. Performed By: #### L 100.0100, L500.4100, L500.4050 #### [facility] [address] [place], [address] Potassium [Moles/Vol] 4.7 mmol/L Normal 3.5-5.1 [facility] Comment on above: Performed By: #### L 100.0100, L500.4100, L500.4050 #### [facility] [address] [place], [address] Sodium [Moles/Vol] 136 mmol/L Normal 136-145 [facility] Comment on above: Performed By: #### L 100.0100, L500.4100, L500.4050 #### [facility] [address] [place], [address] T PROT 8.0 g/dL Normal 6.4-8.2 [facility] Comment on above: Performed By: #### L 100.0100, L500.4100, L500.4050 #### [facility] [address] [place], [address] Urea nitrogen [Mass/Vol] 23 mg/dL High 7-18 [facility] Comment on above: Performed By: #### L 100.0100, L500.4100, L500.4050 #### [facility] [address] [place], [address] Internal Medicine Office Vis iton 12-07-2023 Internal Medicine Office Visit [facility] [address] [place] [address] OFFICE VISIT Date of Service: 12/07/23 MR#: [id number] Acct: [id number] Name: JOSELINE ELLIS Rep #: [id number] : 1950 Provider: TERA Barnett Age/Sex: 73/F Location: [facility] Status: Signed Intake Vital Signs 09/26/23 12:06 12/07/23 10:27 Height 5 ft 1 in 5 ft 1 in Weight: 196 lb 185 lb BMI 34.9 BP 144/70 H Blood Pressure Location Lt brachial Position Sitting Respiration 17 Pulse 70 57 L Pulse Source Monitor Temp 98.0 F Temp Source Temporal Pulse Oximetry (%) 95 96 Oxygen Delivery Method room air Intake Visit Reasons: CARE HOME FU Chief Complaint: CARE HOME FU Is patient in pain?: No Allergies [...] in the past year?: Yes (1 ) [facility] Medical History (Updated 12/09/23 @ 23:54 by [...] transient 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 Normal [facility] Lipid Profileon 12-07-2023 Cholesterol [Mass/Vol] 250 mg/dL High 200 [facility] Comment on above: Result Comment: <200 mg/dL Desirable 200-240 mg/dL Borderline >240 mg/dL High Risk Performed By: #### L 100.0100, L500.4100, L500.4050 #### [facility] [address] [place], [address] Cholesterol in HDL [Mass/Vol] 49 mg/dL Normal [facility] Comment on above: Result Comment: The drugs N-Acetylcysteine and Metamizole may falsely depress this assay. Reference Range HDL <40 mg/dL Low HDL Cholesterol HDL >or= 60 mg/dL High HDL Cholesterol Performed By: #### L 100.0100, L500.4100, L500.4050 #### [facility] [address] [place], [address] Cholesterol in LDL [Mass/Vol] 161 mg/dL High 0-130 [facility] Comment on above: Performed By: #### L 100.0100, L500.4100, L500.4050 #### [facility] [address] [place], [address] Cholesterol in VLDL [Mass/Vol] 40 mg/dL Normal 5-40 [facility] Comment on above: Performed By: #### L 100.0100, L500.4100, L500.4050 #### [facility] [address], [address] Triglyceride [Mass/Vol] 199 mg/dL Normal [facility] Comment on above: Result Comment: The drugs N-Acetylcysteine and Metamizole may falsely depress this assay. Serum Triglycerides Reference Interval Normal <150 mg/dL Borderline high 150 - 199 mg/dL High 200 - 499 mg/dL Very High > or = 500 mg/dL Performed By: #### L 100.0100, L500.4100, L500.4050 #### [facility] [address], [address] .Auto Diffon 07-14-2023 Basophil, Absolute 0.0 10 3/mcL Normal 0.0-0.3 [facility] ([place]) Comment on above: Performed By: #### G FR, ANEU, CMP, PHOS, TROPHS, ADIFF, TSH, MG, CAION, CBC, PBNP #### [address] [address] Basophils/100 WBC (Bld) 0.4 % Normal 0.0-2.5 A [facility] ([place]) Comment on above: Performed By: #### G FR, ANEU, CMP, PHOS, TROPHS, ADIFF, TSH, MG, CAION, CBC, PBNP #### [address] [address] Eosinophil, Absolute 0.1 10 3/mcL Normal 0.0-0.7 [facility] ([place]) Comment on above: Performed By: #### G FR, ANEU, CMP, PHOS, TROPHS, ADIFF, TSH, MG, CAION, CBC, PBNP #### [address] [address] Eosinophils/100 WBC (Bld) 3.0 % Normal 0.0-6.0 [facility] ([place]) Comment on above: Performed By: #### G FR, ANEU, CMP, PHOS, TROPHS, ADIFF, TSH, MG, CAION, CBC, PBNP #### [address] [address] Lymphocyte, Absolute 0.9 10 3/mcL Normal 0.9-4.3 [facility] ([place]) Comment on above: Performed By: #### G FR, ANEU, CMP, PHOS, TROPHS, ADIFF, TSH, MG, CAION, CBC, PBNP #### [address] [address] Lymphocytes/100 WBC (Bld) 25.4 % Normal 20.0-40.0 [facility] ([place]) Comment on above: Performed By: #### G FR, ANEU, CMP, PHOS, TROPHS, ADIFF, TSH, MG, CAION, CBC, PBNP #### [address] [address] Monocyte, Absolute 0.3 10 3/mcL Normal 0.1-1.4 [facility] ([place]) Comment on above: Performed By: #### G FR, ANEU, CMP, PHOS, TROPHS, ADIFF, TSH, MG, CAION, CBC, PBNP #### [address] [address] Monocytes/100 WBC (Bld) 9.8 % Normal 2.0-13.0 [facility] ([place]) Comment on above: Performed By: #### G FR, ANEU, CMP, PHOS, TROPHS, ADIFF, TSH, MG, CAION, CBC, PBNP #### [address] [address] Neutrophils/100 WBC (Bld) 61.4 % Normal 50.0-75.0 [facility] ([place]) Comment on above: Performed By: #### G FR, ANEU, CMP, PHOS, TROPHS, ADIFF, TSH, MG, CAION, CBC, PBNP #### [address] [address] .GFRon 07-14-2023 GFR >60 Normal [facility] ([place]) Comment on above: Result Comment: GFR [...] ADIFF, TSH, MG, CAION, CBC, PBNP #### [address] [address] GFR Non- 53 ml/min/1.73sqm Normal [facility] ([place]) Comment on above: Result Comment: GFR [...] ADIFF, TSH, MG, CAION, CBC, PBNP #### [address] [address] .NEUABSon 07-14-2023 Neutrophil, Absolute 2.1 10 3/mcL Low 2.3-8.1 [facility] ([place]) Comment on above: Performed By: #### G FR, ANEU, CMP, PHOS, TROPHS, ADIFF, TSH, MG, CAION, CBC, PBNP #### [address] [address] BMPon 07-14-2023 BUN/Creatinine Ratio 35.0 ratio High 10.0-22.0 [facility] ([place]) Comment on above: Performed By: #### G FR, ANEU, CMP, PHOS, TROPHS, ADIFF, TSH, MG, CAION, CBC, PBNP #### [place] [address] Calcium [Mass/Vol] 9.2 mg/dL Normal 8.7-10.4 [facility] ([place]) Comment on above: Performed By: #### G FR, ANEU, CMP, PHOS, TROPHS, ADIFF, TSH, MG, CAION, CBC, PBNP #### [address] [address] Chloride [Moles/Vol] 104 mmol/L Normal 98-110 [facility] ([place]) Comment on above: Performed By: #### G FR, ANEU, CMP, PHOS, TROPHS, ADIFF, TSH, MG, CAION, CBC, PBNP #### [address] [address] CO2 [Moles/Vol] 28 mmol/L Normal 22-32 [facility] ([place]) Comment on above: Performed By: #### G FR, ANEU, CMP, PHOS, TROPHS, ADIFF, TSH, MG, CAION, CBC, PBNP #### [address] [address] Creatinine [Mass/Vol] 1.03 mg/dL Normal 0.50-1.20 [facility] ([place]) Comment on above: Performed By: #### G FR, ANEU, CMP, PHOS, TROPHS, ADIFF, TSH, MG, CAION, CBC, PBNP #### [address] [address] Electrolyte Balance 4.0 mEq/L Normal 4.0-15.0 [facility] ([place]) Comment on above: Performed By: #### G FR, ANEU, CMP, PHOS, TROPHS, ADIFF, TSH, MG, CAION, CBC, PBNP #### [address] [address] Glucose [Mass/Vol] 97 mg/dL Normal 82-115 [facility] ([place]) Comment on above: Performed By: #### G FR, ANEU, CMP, PHOS, TROPHS, ADIFF, TSH, MG, CAION, CBC, PBNP #### [address] [address] Potassium [Moles/Vol] 4.2 mmol/L Normal 3.5-5.0 [facility] ([place]) Comment on above: Result Comment: Spec imen slightly hemolyzed. Performed By: #### G FR, ANEU, CMP, PHOS, TROPHS, ADIFF, TSH, MG, CAION, CBC, PBNP #### [address] [address] Sodium [Moles/Vol] 136 mmol/L Normal 136-145 [facility] ([place]) Comment on above: Performed By: #### G FR, ANEU, CMP, PHOS, TROPHS, ADIFF, TSH, MG, CAION, CBC, PBNP #### [address] [address] Urea nitrogen [Mass/Vol] 36.0 mg/dL High 8.0-22.0 [facility] ([place]) Comment on above: Performed By: #### G FR, ANEU, CMP, PHOS, TROPHS, ADIFF, TSH, MG, CAION, CBC, PBNP #### [address] [address] CBCon 07-14-2023 Erythrocyte distribution width (RBC) [Ratio] 14.9 % Normal 11.5-15.5 [facility] ([place]) Comment on above: Performed By: #### G FR, ANEU, CMP, PHOS, TROPHS, ADIFF, TSH, MG, CAION, CBC, PBNP #### [place] [address] Hematocrit (Bld) [Volume fraction] 36.0 % Normal 34.0-46.0 [facility] ([place]) Comment on above: Performed By: #### G FR, ANEU, CMP, PHOS, TROPHS, ADIFF, TSH, MG, CAION, CBC, PBNP #### [place] [id number] Hgb 12.1 G/dL Normal 12.0-16.0 [facility] ([place]) Comment on above: Performed By: #### G FR, ANEU, CMP, PHOS, TROPHS, ADIFF, TSH, MG, CAION, CBC, PBNP #### [place] [phone] MCH (RBC) [Entitic mass] 28.6 pg Normal 27.0-33.0 [facility] ([place]) Comment on above: Performed By: #### G FR, ANEU, CMP, PHOS, TROPHS, ADIFF, TSH, MG, CAION, CBC, PBNP #### [place] [id number] MCHC 33.7 G/dL Normal 32.0-36.0 [facility] ([place]) Comment on above: Performed By: #### G FR, ANEU, CMP, PHOS, TROPHS, ADIFF, TSH, MG, CAION, CBC, PBNP #### [place] [phone] MCV (RBC) [Entitic vol] 84.8 fL Normal 80.0-99.0 A [facility] ([place]) Comment on above: Performed By: #### G FR, ANEU, CMP, PHOS, TROPHS, ADIFF, TSH, MG, CAION, CBC, PBNP #### [place] [address] Platelet 163 10 3/mcL Normal 150-450 [facility] ([place]) Comment on above: Performed By: #### G FR, ANEU, CMP, PHOS, TROPHS, ADIFF, TSH, MG, CAION, CBC, PBNP #### [facility] [address] [place] [address] Platelet mean volume (Bld) [Entitic vol] 7.9 fL Normal 6.6-10.5 [facility] ([place]) Comment on above: Performed By: #### G FR, ANEU, CMP, PHOS, TROPHS, ADIFF, TSH, MG, CAION, CBC, PBNP #### [place] [id number] [place] [address] RBC 4.24 10 6/mcL Normal 4.10-5.30 [facility] ([place]) Comment on above: Performed By: #### G FR, ANEU, CMP, PHOS, TROPHS, ADIFF, TSH, MG, CAION, CBC, PBNP #### [address] [address] WBC 3.4 10 3/mcL Low 4.5-10.8 [facility] ([place]) Comment on above: Performed By: #### G FR, ANEU, CMP, PHOS, TROPHS, ADIFF, TSH, MG, CAION, CBC, PBNP #### [address] [address] LABORATORYOrdered By: Yvonne Liang on 07-14-2023 Blood Glucose Testing Reason Routine (07/14/23 12:43 PM) [facility] Glucose [Mass/Vol] 247 mg/dL High 82 - 115 mg/dL [facility] Blood Glucose Testing Reason Routine (07/14/23 11:39 AM) [facility] Glucose [Mass/Vol] 285 mg/dL High 82 - 115 mg/dL [facility] LABORATORYOrdered By: Zulay Bagley on 07-14-2023 Blood Glucose Testing Reason Routine (07/14/23 7:50 AM) [facility] Glucose [Mass/Vol] 120 mg/dL High 82 - 115 mg/dL [facility] LABORATORYOrdered By: SYSTEM SYSTEM on 07-14-2023 Basophils [...] 07-14-2023 Magnesium [Mass/Vol] 2.0 mg/dL Normal 1.6-2.4 [facility] ([place]) Comment on above: Performed By: #### G FR, ANEU, CMP, PHOS, TROPHS, ADIFF, TSH, MG, CAION, CBC, PBNP #### [address] [address] .Auto Diffon 07-13-2023 Basophil, Absolute 0.0 10 3/mcL Normal 0.0-0.3 [facility] ([place]) Comment on above: Performed By: #### G FR, ANEU, CMP, PHOS, TROPHS, ADIFF, TSH, MG, CAION, CBC, PBNP #### [address] [address] Basophils/100 WBC (Bld) 0.4 % Normal 0.0-2.5 A [facility] ([place]) Comment on above: Performed By: #### G FR, ANEU, CMP, PHOS, TROPHS, ADIFF, TSH, MG, CAION, CBC, PBNP #### [address] [address] Eosinophil, Absolute 0.0 10 3/mcL Normal 0.0-0.7 [facility] ([place]) Comment on above: Performed By: #### G FR, ANEU, CMP, PHOS, TROPHS, ADIFF, TSH, MG, CAION, CBC, PBNP #### [address] [address] Eosinophils/100 WBC (Bld) 1.2 % Normal 0.0-6.0 [facility] ([place]) Comment on above: Performed By: #### G FR, ANEU, CMP, PHOS, TROPHS, ADIFF, TSH, MG, CAION, CBC, PBNP #### [address] [address] Lymphocyte, Absolute 0.7 10 3/mcL Low 0.9-4.3 [facility] ([place]) Comment on above: Performed By: #### G FR, ANEU, CMP, PHOS, TROPHS, ADIFF, TSH, MG, CAION, CBC, PBNP #### [address] [address] Lymphocytes/100 WBC (Bld) 16.6 % Low 20.0-40.0 [facility] ([place]) Comment on above: Performed By: #### G FR, ANEU, CMP, PHOS, TROPHS, ADIFF, TSH, MG, CAION, CBC, PBNP #### [address] [address] Monocyte, Absolute 0.3 10 3/mcL Normal 0.1-1.4 [facility] ([place]) Comment on above: Performed By: #### G FR, ANEU, CMP, PHOS, TROPHS, ADIFF, TSH, MG, CAION, CBC, PBNP #### [address] [address] Monocytes/100 WBC (Bld) 8.3 % Normal 2.0-13.0 [facility] ([place]) Comment on above: Performed By: #### G FR, ANEU, CMP, PHOS, TROPHS, ADIFF, TSH, MG, CAION, CBC, PBNP #### [address] [address] Neutrophils/100 WBC (Bld) 73.5 % Normal 50.0-75.0 [facility] ([place]) Comment on above: Performed By: #### G FR, ANEU, CMP, PHOS, TROPHS, ADIFF, TSH, MG, CAION, CBC, PBNP #### [address] [address] .GFRon 07-13-2023 GFR 56 ml/min/1.73sqm Normal [facility] ([place]) Comment on above: Result Comment: GFR [...] ADIFF, TSH, MG, CAION, CBC, PBNP #### [address] [address] GFR Non- 46 ml/min/1.73sqm Normal [facility] ([place]) Comment on above: Result Comment: GFR [...] ADIFF, TSH, MG, CAION, CBC, PBNP #### [address] [address] .NEUABSon 07-13-2023 Neutrophil, Absolute 3.0 10 3/mcL Normal 2.3-8.1 [facility] ([place]) Comment on above: Performed By: #### G FR, ANEU, CMP, PHOS, TROPHS, ADIFF, TSH, MG, CAION, CBC, PBNP #### [place] [address] BMPon 07-13-2023 BUN/Creatinine Ratio 33.6 ratio High 10.0-22.0 [facility] ([place]) Comment on above: Performed By: #### G FR, ANEU, CMP, PHOS, TROPHS, ADIFF, TSH, MG, CAION, CBC, PBNP #### [place] [address] Calcium [Mass/Vol] 9.0 mg/dL Normal 8.7-10.4 [facility] ([place]) Comment on above: Performed By: #### G FR, ANEU, CMP, PHOS, TROPHS, ADIFF, TSH, MG, CAION, CBC, PBNP #### [place] [address] Chloride [Moles/Vol] 103 mmol/L Normal 98-110 [facility] ([place]) Comment on above: Performed By: #### G FR, ANEU, CMP, PHOS, TROPHS, ADIFF, TSH, MG, CAION, CBC, PBNP #### [place] [phone] CO2 [Moles/Vol] 25 mmol/L Normal 22-32 [facility] ([place]) Comment on above: Performed By: #### G FR, ANEU, CMP, PHOS, TROPHS, ADIFF, TSH, MG, CAION, CBC, PBNP #### [place] [address] Creatinine [Mass/Vol] 1.16 mg/dL Normal 0.50-1.20 [facility] ([place]) Comment on above: Performed By: #### G FR, ANEU, CMP, PHOS, TROPHS, ADIFF, TSH, MG, CAION, CBC, PBNP #### [address] [address] Electrolyte Balance 6.0 mEq/L Normal 4.0-15.0 [facility] ([place]) Comment on above: Performed By: #### G FR, ANEU, CMP, PHOS, TROPHS, ADIFF, TSH, MG, CAION, CBC, PBNP #### [place] [phone] Glucose [Mass/Vol] 93 mg/dL Normal 82-115 [facility] ([place]) Comment on above: Performed By: #### G FR, ANEU, CMP, PHOS, TROPHS, ADIFF, TSH, MG, CAION, CBC, PBNP #### [place] [address] Potassium [Moles/Vol] 4.1 mmol/L Normal 3.5-5.0 [facility] ([place]) Comment on above: Result Comment: Spec imen slightly hemolyzed. Performed By: #### G FR, ANEU, CMP, PHOS, TROPHS, ADIFF, TSH, MG, CAION, CBC, PBNP #### [place] [phone] Sodium [Moles/Vol] 134 mmol/L Low 136-145 [facility] ([place]) Comment on above: Performed By: #### G FR, ANEU, CMP, PHOS, TROPHS, ADIFF, TSH, MG, CAION, CBC, PBNP #### [place] [phone] Urea nitrogen [Mass/Vol] 39.0 mg/dL High 8.0-22.0 [facility] ([place]) Comment on above: Performed By: #### G FR, ANEU, CMP, PHOS, TROPHS, ADIFF, TSH, MG, CAION, CBC, PBNP #### [place] [id number] CBCon 07-13-2023 Erythrocyte distribution width (RBC) [Ratio] 15.0 % Normal 11.5-15.5 [facility] ([place]) Comment on above: Performed By: #### G FR, ANEU, CMP, PHOS, TROPHS, ADIFF, TSH, MG, CAION, CBC, PBNP #### [place] [phone] Hematocrit (Bld) [Volume fraction] 38.8 % Normal 34.0-46.0 [facility] ([place]) Comment on above: Performed By: #### G FR, ANEU, CMP, PHOS, TROPHS, ADIFF, TSH, MG, CAION, CBC, PBNP #### [place] [address] Hgb 13.0 G/dL Normal 12.0-16.0 [facility] ([place]) Comment on above: Performed By: #### G FR, ANEU, CMP, PHOS, TROPHS, ADIFF, TSH, MG, CAION, CBC, PBNP #### [place] [address] MCH (RBC) [Entitic mass] 28.8 pg Normal 27.0-33.0 [facility] ([place]) Comment on above: Performed By: #### G FR, ANEU, CMP, PHOS, TROPHS, ADIFF, TSH, MG, CAION, CBC, PBNP #### [place] [address] MCHC 33.5 G/dL Normal 32.0-36.0 [facility] ([place]) Comment on above: Performed By: #### G FR, ANEU, CMP, PHOS, TROPHS, ADIFF, TSH, MG, CAION, CBC, PBNP #### [place] [phone] MCV (RBC) [Entitic vol] 86.0 fL Normal 80.0-99.0 [facility] ([place]) Comment on above: Performed By: #### G FR, ANEU, CMP, PHOS, TROPHS, ADIFF, TSH, MG, CAION, CBC, PBNP #### [address] [address] Platelet 141 10 3/mcL Low 150-450 [facility] ([place]) Comment on above: Performed By: #### G FR, ANEU, CMP, PHOS, TROPHS, ADIFF, TSH, MG, CAION, CBC, PBNP #### [address] [address] Platelet mean volume (Bld) [Entitic vol] 8.4 fL Normal 6.6-10.5 [facility] ([place]) Comment on above: Performed By: #### G FR, ANEU, CMP, PHOS, TROPHS, ADIFF, TSH, MG, CAION, CBC, PBNP #### [place] [address] RBC 4.51 10 6/mcL Normal 4.10-5.30 [facility] ([place]) Comment on above: Performed By: #### G FR, ANEU, CMP, PHOS, TROPHS, ADIFF, TSH, MG, CAION, CBC, PBNP #### [address] [address] WBC 4.1 10 3/mcL Low 4.5-10.8 [facility] ([place]) Comment on above: Performed By: #### G FR, ANEU, CMP, PHOS, TROPHS, ADIFF, TSH, MG, CAION, CBC, PBNP #### [address] [address] LABORATORYOrdered By: SYSTEM SYSTEM on 07-13-2023 Basophils [...] [Vol rate/Area] 46 ml/min/1.73sqm Invalid Interpretation Code [facility] Comment on above: Interpretive Data: GFR Population [...] 07-13-2023 Magnesium [Mass/Vol] 2.0 mg/dL Normal 1.6-2.4 [facility] ([place]) Comment on above: Performed By: #### G FR, ANEU, CMP, PHOS, TROPHS, ADIFF, TSH, MG, CAION, CBC, PBNP #### [address] [address] .Auto Diffon 07-12-2023 Basophil, Absolute 0.0 10 3/mcL Normal 0.0-0.3 [facility] ([place]) Comment on above: Performed By: #### G FR, ANEU, CMP, PHOS, TROPHS, ADIFF, TSH, MG, CAION, CBC, PBNP #### [address] [address] Basophils/100 WBC (Bld) 0.5 % Normal 0.0-2.5 A [facility] ([place]) Comment on above: Performed By: #### G FR, ANEU, CMP, PHOS, TROPHS, ADIFF, TSH, MG, CAION, CBC, PBNP #### [address] [address] Eosinophil, Absolute 0.0 10 3/mcL Normal 0.0-0.7 [facility] ([place]) Comment on above: Performed By: #### G FR, ANEU, CMP, PHOS, TROPHS, ADIFF, TSH, MG, CAION, CBC, PBNP #### [address] [address] Eosinophils/100 WBC (Bld) 0.5 % Normal 0.0-6.0 [facility] ([place]) Comment on above: Performed By: #### G FR, ANEU, CMP, PHOS, TROPHS, ADIFF, TSH, MG, CAION, CBC, PBNP #### [address] [address] Lymphocyte, Absolute 0.8 10 3/mcL Low 0.9-4.3 [facility] ([place]) Comment on above: Performed By: #### G FR, ANEU, CMP, PHOS, TROPHS, ADIFF, TSH, MG, CAION, CBC, PBNP #### [address] [address] Lymphocytes/100 WBC (Bld) 26.1 % Normal 20.0-40.0 [facility] ([place]) Comment on above: Performed By: #### G FR, ANEU, CMP, PHOS, TROPHS, ADIFF, TSH, MG, CAION, CBC, PBNP #### [address] [address] Monocyte, Absolute 0.3 10 3/mcL Normal 0.1-1.4 [facility] ([place] Comment on above: Performed By: #### G FR, ANEU, CMP, PHOS, TROPHS, ADIFF, TSH, MG, CAION, CBC, PBNP #### [address] [address] Monocytes/100 WBC (Bld) 10.8 % Normal 2.0-13.0 A [facility] ([place] Comment on above: Performed By: #### G FR, ANEU, CMP, PHOS, TROPHS, ADIFF, TSH, MG, CAION, CBC, PBNP #### [address] [address] Neutrophils/100 WBC (Bld) 62.1 % Normal 50.0-75.0 [facility] ([place]) Comment on above: Performed By: #### G FR, ANEU, CMP, PHOS, TROPHS, ADIFF, TSH, MG, CAION, CBC, PBNP #### [address] [address] .GFRon 07-12-2023 GFR Non- 39 ml/min/1.73sqm Normal [facility] ([place]) Comment on above: Result Comment: GFR [...] ADIFF, TSH, MG, CAION, CBC, PBNP #### [address] [address] GFR 47 ml/min/1.73sqm Normal [facility] ([place]) Comment on above: Result Comment: GFR [...] ADIFF, TSH, MG, CAION, CBC, PBNP #### [address] [address] .NEUABSon 07-12-2023 Neutrophil, Absolute 1.9 10 3/mcL Low 2.3-8.1 [facility] ([place]) Comment on above: Performed By: #### G FR, ANEU, CMP, PHOS, TROPHS, ADIFF, TSH, MG, CAION, CBC, PBNP #### [address] [address] BMPon 07-12-2023 BUN/Creatinine Ratio 21.5 ratio Normal 10.0-22.0 [facility] ([place]) Comment on above: Performed By: #### G FR, ANEU, CMP, PHOS, TROPHS, ADIFF, TSH, MG, CAION, CBC, PBNP #### [address] [address] Calcium [Mass/Vol] 9.0 mg/dL Normal 8.7-10.4 [facility] ([place]) Comment on above: Performed By: #### G FR, ANEU, CMP, PHOS, TROPHS, ADIFF, TSH, MG, CAION, CBC, PBNP #### [address] [address] Chloride [Moles/Vol] 101 mmol/L Normal 98-110 [facility] ([place]) Comment on above: Performed By: #### G FR, ANEU, CMP, PHOS, TROPHS, ADIFF, TSH, MG, CAION, CBC, PBNP #### [address] [address] CO2 [Moles/Vol] 22 mmol/L Normal 22-32 [facility] ([place]) Comment on above: Performed By: #### G FR, ANEU, CMP, PHOS, TROPHS, ADIFF, TSH, MG, CAION, CBC, PBNP #### [address] [address] Creatinine [Mass/Vol] 1.35 mg/dL High 0.50-1.20 [facility] ([place]) Comment on above: Performed By: #### G FR, ANEU, CMP, PHOS, TROPHS, ADIFF, TSH, MG, CAION, CBC, PBNP #### [address] [address] Electrolyte Balance 10.0 mEq/L Normal 4.0-15.0 [facility] ([place]) Comment on above: Performed By: #### G FR, ANEU, CMP, PHOS, TROPHS, ADIFF, TSH, MG, CAION, CBC, PBNP #### [address] [address] Glucose [Mass/Vol] 61 mg/dL Low 82-115 [facility] ([place]) Comment on above: Performed By: #### G FR, ANEU, CMP, PHOS, TROPHS, ADIFF, TSH, MG, CAION, CBC, PBNP #### [address] [address] Potassium [Moles/Vol] 3.8 mmol/L Normal 3.5-5.0 [facility] ([place]) Comment on above: Result Comment: Spec imen slightly hemolyzed. Performed By: #### G FR, ANEU, CMP, PHOS, TROPHS, ADIFF, TSH, MG, CAION, CBC, PBNP #### [place] [phone] Sodium [Moles/Vol] 133 mmol/L Low 136-145 [facility] ([place]) Comment on above: Performed By: #### G FR, ANEU, CMP, PHOS, TROPHS, ADIFF, TSH, MG, CAION, CBC, PBNP #### [place] [phone] Urea nitrogen [Mass/Vol] 29.0 mg/dL High 8.0-22.0 [facility] ([place]) Comment on above: Performed By: #### G FR, ANEU, CMP, PHOS, TROPHS, ADIFF, TSH, MG, CAION, CBC, PBNP #### [address] [address] CBCon 07-12-2023 Erythrocyte distribution width (RBC) [Ratio] 15.2 % Normal 11.5-15.5 [facility] ([place]) Comment on above: Performed By: #### G FR, ANEU, CMP, PHOS, TROPHS, ADIFF, TSH, MG, CAION, CBC, PBNP #### [address] [address] Hematocrit (Bld) [Volume fraction] 38.7 % Normal 34.0-46.0 [facility] ([place]) Comment on above: Performed By: #### G FR, ANEU, CMP, PHOS, TROPHS, ADIFF, TSH, MG, CAION, CBC, PBNP #### [place] [address] Hgb 12.8 G/dL Normal 12.0-16.0 [facility] ([place]) Comment on above: Performed By: #### G FR, ANEU, CMP, PHOS, TROPHS, ADIFF, TSH, MG, CAION, CBC, PBNP #### [place] [phone] MCH (RBC) [Entitic mass] 28.6 pg Normal 27.0-33.0 [facility] ([place]) Comment on above: Performed By: #### G FR, ANEU, CMP, PHOS, TROPHS, ADIFF, TSH, MG, CAION, CBC, PBNP #### [place] [phone] MCHC 33.2 G/dL Normal 32.0-36.0 [facility] ([place]) Comment on above: Performed By: #### G FR, ANEU, CMP, PHOS, TROPHS, ADIFF, TSH, MG, CAION, CBC, PBNP #### [place] [address] MCV (RBC) [Entitic vol] 86.2 fL Normal 80.0-99.0 [facility] ([place]) Comment on above: Performed By: #### G FR, ANEU, CMP, PHOS, TROPHS, ADIFF, TSH, MG, CAION, CBC, PBNP #### [place] [address] Platelet 180 10 3/mcL Normal 150-450 [facility] ([place]) Comment on above: Performed By: #### G FR, ANEU, CMP, PHOS, TROPHS, ADIFF, TSH, MG, CAION, CBC, PBNP #### [place] [address] Platelet mean volume (Bld) [Entitic vol] 8.7 fL Normal 6.6-10.5 [facility] ([place]) Comment on above: Performed By: #### G FR, ANEU, CMP, PHOS, TROPHS, ADIFF, TSH, MG, CAION, CBC, PBNP #### [place] [address] RBC 4.49 10 6/mcL Normal 4.10-5.30 [facility] ([place]) Comment on above: Performed By: #### G FR, ANEU, CMP, PHOS, TROPHS, ADIFF, TSH, MG, CAION, CBC, PBNP #### [place] [address] WBC 3.1 10 3/mcL Low 4.5-10.8 [facility] ([place]) Comment on above: Performed By: #### G FR, ANEU, CMP, PHOS, TROPHS, ADIFF, TSH, MG, CAION, CBC, PBNP #### [place] [address] LABORATORYOrdered By: Blanka Gaston on 07-12-2023 Blood Glucose Interventions Administered food/juice (07/12/23 6:08 AM) [facility] LABORATORYOrdered By: SYSTEM SYSTEM on 07-12-2023 Basophils [...] 15.2 % Normal 11.5 - 15.5 % [facility] GFR/1.73 sq M.predicted among blacks MDRD (S/P/Bld) [Vol rate/Area] 47 ml/min/1.73sqm Invalid Interpretation Code [facility] Comment on above: Interpretive Data: GFR Population [...] [Vol rate/Area] 39 ml/min/1.73sqm Invalid Interpretation Code [facility] Comment on above: Interpretive Data: GFR Population [...] 61 mg/dL Low 82 - 115 mg/dL [facility] Hematocrit (Bld) [Volume fraction] 38.7 % Normal 34.0 - 46.0 % [facility] Hemoglobin (Bld) [Mass/Vol] 12.8 G/dL Normal 12.0 - 16.0 G/dL [facility] Lymphocytes (Bld) [#/Vol] 0.8 103/mcL Low 0.9 [...] 07-12-2023 Magnesium [Mass/Vol] 2.2 mg/dL Normal 1.6-2.4 [facility] ([place]) Comment on above: Performed By: #### G FR, ANEU, CMP, PHOS, TROPHS, ADIFF, TSH, MG, CAION, CBC, PBNP #### [address] [address] .Auto Diffon 07-11-2023 Basophil, Absolute 0.0 10 3/mcL Normal 0.0-0.3 [facility] ([place]) Comment on above: Performed By: #### G FR, ANEU, CMP, PHOS, TROPHS, ADIFF, TSH, MG, CAION, CBC, PBNP #### [address] [address] Basophils/100 WBC (Bld) 0.3 % Normal 0.0-2.5 [facility] ([place]) Comment on above: Performed By: #### G FR, ANEU, CMP, PHOS, TROPHS, ADIFF, TSH, MG, CAION, CBC, PBNP #### [address] [address] Eosinophil, Absolute 0.0 10 3/mcL Normal 0.0-0.7 [facility] ([place]) Comment on above: Performed By: #### G FR, ANEU, CMP, PHOS, TROPHS, ADIFF, TSH, MG, CAION, CBC, PBNP #### [address] [address] Eosinophils/100 WBC (Bld) 0.1 % Normal 0.0-6.0 [facility] ([place]) Comment on above: Performed By: #### G FR, ANEU, CMP, PHOS, TROPHS, ADIFF, TSH, MG, CAION, CBC, PBNP #### [address] [address] Lymphocyte, Absolute 0.9 10 3/mcL Normal 0.9-4.3 [facility] ([place]) Comment on above: Performed By: #### G FR, ANEU, CMP, PHOS, TROPHS, ADIFF, TSH, MG, CAION, CBC, PBNP #### [address] [address] Lymphocytes/100 WBC (Bld) 16.2 % Low 20.0-40.0 [facility] ([place]) Comment on above: Performed By: #### G FR, ANEU, CMP, PHOS, TROPHS, ADIFF, TSH, MG, CAION, CBC, PBNP #### [address] [address] Monocyte, Absolute 0.6 10 3/mcL Normal 0.1-1.4 [facility] ([place]) Comment on above: Performed By: #### G FR, ANEU, CMP, PHOS, TROPHS, ADIFF, TSH, MG, CAION, CBC, PBNP #### [address] [address] Monocytes/100 WBC (Bld) 10.9 % Normal 2.0-13.0 [facility] ([place]) Comment on above: Performed By: #### G FR, ANEU, CMP, PHOS, TROPHS, ADIFF, TSH, MG, CAION, CBC, PBNP #### [address] [address] Neutrophils/100 WBC (Bld) 72.5 % Normal 50.0-75.0 [facility] ([place]) Comment on above: Performed By: #### G FR, ANEU, CMP, PHOS, TROPHS, ADIFF, TSH, MG, CAION, CBC, PBNP #### [address] [address] Basophil, Absolute 0.0 10 3/mcL Normal 0.0-0.3 [facility] ([place]) Comment on above: Performed By: #### G FR, ANEU, CMP, PHOS, TROPHS, ADIFF, TSH, MG, CAION, CBC, PBNP #### [address] [address] Basophils/100 WBC (Bld) 0.2 % Normal 0.0-2.5 [facility] ([place]) Comment on above: Performed By: #### G FR, ANEU, CMP, PHOS, TROPHS, ADIFF, TSH, MG, CAION, CBC, PBNP #### [address] [address] Eosinophil, Absolute 0.0 10 3/mcL Normal 0.0-0.7 [facility] ([place]) Comment on above: Performed By: #### G FR, ANEU, CMP, PHOS, TROPHS, ADIFF, TSH, MG, CAION, CBC, PBNP #### [address] [address] Eosinophils/100 WBC (Bld) 0.0 % Normal 0.0-6.0 [facility] ([place]) Comment on above: Performed By: #### G FR, ANEU, CMP, PHOS, TROPHS, ADIFF, TSH, MG, CAION, CBC, PBNP #### [address] [address] Lymphocyte, Absolute 0.4 10 3/mcL Low 0.9-4.3 [facility] ([place]) Comment on above: Performed By: #### G FR, ANEU, CMP, PHOS, TROPHS, ADIFF, TSH, MG, CAION, CBC, PBNP #### [address] [address] Lymphocytes/100 WBC (Bld) 8.0 % Low 20.0-40.0 [facility] ([place]) Comment on above: Performed By: #### G FR, ANEU, CMP, PHOS, TROPHS, ADIFF, TSH, MG, CAION, CBC, PBNP #### [address] [address] Monocyte, Absolute 0.4 10 3/mcL Normal 0.1-1.4 [facility] ([place]) Comment on above: Performed By: #### G FR, ANEU, CMP, PHOS, TROPHS, ADIFF, TSH, MG, CAION, CBC, PBNP #### [address] [address] Monocytes/100 WBC (Bld) 8.3 % Normal 2.0-13.0 [facility] ([place]) Comment on above: Performed By: #### G FR, ANEU, CMP, PHOS, TROPHS, ADIFF, TSH, MG, CAION, CBC, PBNP #### [address] [address] Neutrophils/100 WBC (Bld) 83.5 % High 50.0-75.0 [facility] ([place]) Comment on above: Performed By: #### G FR, ANEU, CMP, PHOS, TROPHS, ADIFF, TSH, MG, CAION, CBC, PBNP #### [address] [address] .GFRon 07-11-2023 GFR >60 Normal [facility] ([place]) Comment on above: Result Comment: GFR [...] ADIFF, TSH, MG, CAION, CBC, PBNP #### [address] [address] GFR Non- 51 ml/min/1.73sqm Normal [facility] ([place]) Comment on above: Result Comment: GFR [...] ADIFF, TSH, MG, CAION, CBC, PBNP #### [address] [address] GFR Non- >60 Normal [facility] ([place]) Comment on above: Result Comment: GFR [...] ADIFF, TSH, MG, CAION, CBC, PBNP #### [address] [address] GFR >60 Normal [facility] ([place]) Comment on above: Result Comment: GFR [...] ADIFF, TSH, MG, CAION, CBC, PBNP #### [address] [address] .NEUABSon 07-11-2023 Neutrophil, Absolute 4.0 10 3/mcL Normal 2.3-8.1 [facility] ([place]) Comment on above: Performed By: #### G FR, ANEU, CMP, PHOS, TROPHS, ADIFF, TSH, MG, CAION, CBC, PBNP #### [place] [address] Neutrophil, Absolute 4.5 10 3/mcL Normal 2.3-8.1 [facility] ([place]) Comment on above: Performed By: #### G FR, ANEU, CMP, PHOS, TROPHS, ADIFF, TSH, MG, CAION, CBC, PBNP #### [place] [address] A1Con 07-11-2023 HbA1c (Bld) [Mass fraction] 6.4 % High 4.0-6.0 [facility] ([place]) Comment on above: Performed By: #### G FR, ANEU, CMP, PHOS, TROPHS, ADIFF, TSH, MG, CAION, CBC, PBNP #### [place] [address] BMPon 07-11-2023 BUN/Creatinine Ratio 19.8 ratio Normal 10.0-22.0 [facility] ([place]) Comment on above: Performed By: #### G FR, ANEU, CMP, PHOS, TROPHS, ADIFF, TSH, MG, CAION, CBC, PBNP #### [place] [address] Calcium [Mass/Vol] 9.4 mg/dL Normal 8.7-10.4 [facility] ([place]) Comment on above: Performed By: #### G FR, ANEU, CMP, PHOS, TROPHS, ADIFF, TSH, MG, CAION, CBC, PBNP #### [place] [address] Chloride [Moles/Vol] 103 mmol/L Normal 98-110 [facility] ([place]) Comment on above: Performed By: #### G FR, ANEU, CMP, PHOS, TROPHS, ADIFF, TSH, MG, CAION, CBC, PBNP #### [address] [address] CO2 [Moles/Vol] 22 mmol/L Normal 22-32 [facility] ([place]) Comment on above: Performed By: #### G FR, ANEU, CMP, PHOS, TROPHS, ADIFF, TSH, MG, CAION, CBC, PBNP #### [address] [address] Creatinine [Mass/Vol] 1.06 mg/dL Normal 0.50-1.20 [facility] ([place]) Comment on above: Performed By: #### G FR, ANEU, CMP, PHOS, TROPHS, ADIFF, TSH, MG, CAION, CBC, PBNP #### [address] [address] Electrolyte Balance 6.0 mEq/L Normal 4.0-15.0 [facility] ([place]) Comment on above: Performed By: #### G FR, ANEU, CMP, PHOS, TROPHS, ADIFF, TSH, MG, CAION, CBC, PBNP #### [address] [address] Glucose [Mass/Vol] 82 mg/dL Normal 82-115 [facility] ([place]) Comment on above: Performed By: #### G FR, ANEU, CMP, PHOS, TROPHS, ADIFF, TSH, MG, CAION, CBC, PBNP #### [address] [address] Potassium [Moles/Vol] 3.8 mmol/L Normal 3.5-5.0 [facility] ([place]) Comment on above: Result Comment: Spec imen slightly hemolyzed. Performed By: #### G FR, ANEU, CMP, PHOS, TROPHS, ADIFF, TSH, MG, CAION, CBC, PBNP #### [address] [address] Sodium [Moles/Vol] 131 mmol/L Low 136-145 [facility] ([place]) Comment on above: Performed By: #### G FR, ANEU, CMP, PHOS, TROPHS, ADIFF, TSH, MG, CAION, CBC, PBNP #### [place] [address] Urea nitrogen [Mass/Vol] 21.0 mg/dL Normal 8.0-22.0 [facility] ([place]) Comment on above: Performed By: #### G FR, ANEU, CMP, PHOS, TROPHS, ADIFF, TSH, MG, CAION, CBC, PBNP #### [place] [address] CAIONon 07-11-2023 Calcium Ionized 1.06 mmol/L Low 1.12-1.32 [facility] ([place]) Comment on above: Performed By: #### G FR, ANEU, CMP, PHOS, TROPHS, ADIFF, TSH, MG, CAION, CBC, PBNP #### [place] [address] CBCon 07-11-2023 Erythrocyte distribution width (RBC) [Ratio] 14.7 % Normal 11.5-15.5 [facility] ([place]) Comment on above: Performed By: #### G FR, ANEU, CMP, PHOS, TROPHS, ADIFF, TSH, MG, CAION, CBC, PBNP #### [place] [address] Hematocrit (Bld) [Volume fraction] 39.6 % Normal 34.0-46.0 [facility] ([place]) Comment on above: Performed By: #### G FR, ANEU, CMP, PHOS, TROPHS, ADIFF, TSH, MG, CAION, CBC, PBNP #### [place] [phone] Hgb 13.4 G/dL Normal 12.0-16.0 [facility] ([place]) Comment on above: Performed By: #### G FR, ANEU, CMP, PHOS, TROPHS, ADIFF, TSH, MG, CAION, CBC, PBNP #### [place] [address] MCH (RBC) [Entitic mass] 28.9 pg Normal 27.0-33.0 [facility] ([place]) Comment on above: Performed By: #### G FR, ANEU, CMP, PHOS, TROPHS, ADIFF, TSH, MG, CAION, CBC, PBNP #### [address] [address] MCHC 33.8 G/dL Normal 32.0-36.0 [facility] ([place]) Comment on above: Performed By: #### G FR, ANEU, CMP, PHOS, TROPHS, ADIFF, TSH, MG, CAION, CBC, PBNP #### [place] [address] MCV (RBC) [Entitic vol] 85.4 fL Normal 80.0-99.0 A [facility] ([place]) Comment on above: Performed By: #### G FR, ANEU, CMP, PHOS, TROPHS, ADIFF, TSH, MG, CAION, CBC, PBNP #### [place] [address] Platelet 193 10 3/mcL Normal 150-450 [facility] ([place]) Comment on above: Performed By: #### G FR, ANEU, CMP, PHOS, TROPHS, ADIFF, TSH, MG, CAION, CBC, PBNP #### [place] [address] Platelet mean volume (Bld) [Entitic vol] 8.1 fL Normal 6.6-10.5 [facility] ([place]) Comment on above: Performed By: #### G FR, ANEU, CMP, PHOS, TROPHS, ADIFF, TSH, MG, CAION, CBC, PBNP #### [place] [address] RBC 4.64 10 6/mcL Normal 4.10-5.30 [facility] ([place]) Comment on above: Performed By: #### G FR, ANEU, CMP, PHOS, TROPHS, ADIFF, TSH, MG, CAION, CBC, PBNP #### [place] [address] WBC 5.6 10 3/mcL Normal 4.5-10.8 [facility] ([place]) Comment on above: Performed By: #### G FR, ANEU, CMP, PHOS, TROPHS, ADIFF, TSH, MG, CAION, CBC, PBNP #### [place] [phone] Erythrocyte distribution width (RBC) [Ratio] 15.0 % Normal 11.5-15.5 [facility] ([place]) Comment on above: Performed By: #### G FR, ANEU, CMP, PHOS, TROPHS, ADIFF, TSH, MG, CAION, CBC, PBNP #### [place] [phone] Hematocrit (Bld) [Volume fraction] 40.2 % Normal 34.0-46.0 [facility] ([place]) Comment on above: Performed By: #### G FR, ANEU, CMP, PHOS, TROPHS, ADIFF, TSH, MG, CAION, CBC, PBNP #### [place] [address] Hgb 13.4 G/dL Normal 12.0-16.0 [facility] ([place]) Comment on above: Performed By: #### G FR, ANEU, CMP, PHOS, TROPHS, ADIFF, TSH, MG, CAION, CBC, PBNP #### [place] [phone] MCH (RBC) [Entitic mass] 28.9 pg Normal 27.0-33.0 [facility] ([place]) Comment on above: Performed By: #### G FR, ANEU, CMP, PHOS, TROPHS, ADIFF, TSH, MG, CAION, CBC, PBNP #### [place] [phone] MCHC 33.4 G/dL Normal 32.0-36.0 [facility] ([place]) Comment on above: Performed By: #### G FR, ANEU, CMP, PHOS, TROPHS, ADIFF, TSH, MG, CAION, CBC, PBNP #### [place] [phone] MCV (RBC) [Entitic vol] 86.6 fL Normal 80.0-99.0 [facility] ([place]) Comment on above: Performed By: #### G FR, ANEU, CMP, PHOS, TROPHS, ADIFF, TSH, MG, CAION, CBC, PBNP #### [address] [address] Platelet 195 10 3/mcL Normal 150-450 [facility] ([place]) Comment on above: Performed By: #### G FR, ANEU, CMP, PHOS, TROPHS, ADIFF, TSH, MG, CAION, CBC, PBNP #### [address] [address] Platelet mean volume (Bld) [Entitic vol] 7.9 fL Normal 6.6-10.5 [facility] ([place]) Comment on above: Performed By: #### G FR, ANEU, CMP, PHOS, TROPHS, ADIFF, TSH, MG, CAION, CBC, PBNP #### [place] [id number] RBC 4.64 10 6/mcL Normal 4.10-5.30 [facility] ([place]) Comment on above: Performed By: #### G FR, ANEU, CMP, PHOS, TROPHS, ADIFF, TSH, MG, CAION, CBC, PBNP #### [address] [address] WBC 5.4 10 3/mcL Normal 4.5-10.8 [facility] ([place]) Comment on above: Performed By: #### G FR, ANEU, CMP, PHOS, TROPHS, ADIFF, TSH, MG, CAION, CBC, PBNP #### [address] [address] CMPon 07-11-2023 Albumin Level 3.6 G/dL Normal 3.2-4.8 [facility] ([place]) Comment on above: Performed By: #### G FR, ANEU, CMP, PHOS, TROPHS, ADIFF, TSH, MG, CAION, CBC, PBNP #### [place] [phone] Albumin/Globulin [Mass ratio] 0.9 {ratio} Normal 0.9-1.6 [facility] ([place]) Comment on above: Performed By: #### G FR, ANEU, CMP, PHOS, TROPHS, ADIFF, TSH, MG, CAION, CBC, PBNP #### [address] [address] ALP [Catalytic activity/Vol] 82 U/L Normal 38-126 [facility] ([place]) Comment on above: Performed By: #### G FR, ANEU, CMP, PHOS, TROPHS, ADIFF, TSH, MG, CAION, CBC, PBNP #### [address] [address] ALT [Catalytic activity/Vol] 29 U/L Normal 10-49 [facility] ([place]) Comment on above: Performed By: #### G FR, ANEU, CMP, PHOS, TROPHS, ADIFF, TSH, MG, CAION, CBC, PBNP #### [place] [phone] AST [Catalytic activity/Vol] 43 U/L High 8-34 [facility] ([place]) Comment on above: Performed By: #### G FR, ANEU, CMP, PHOS, TROPHS, ADIFF, TSH, MG, CAION, CBC, PBNP #### [address] [address] Bili Total 0.40 mg/dL Normal 0.20-1.20 [facility] ([place]) Comment on above: Result Comment: Use of this assay is not recommended for patients undergoing treatment with eltrombopag due to the potential for falsely elevated results. Performed By: #### G FR, ANEU, CMP, PHOS, TROPHS, ADIFF, TSH, MG, CAION, CBC, PBNP #### [place] [phone] BUN/Creatinine Ratio 16.7 ratio Normal 10.0-22.0 [facility] ([place]) Comment on above: Performed By: #### G FR, ANEU, CMP, PHOS, TROPHS, ADIFF, TSH, MG, CAION, CBC, PBNP #### [address] [address] Calcium [Mass/Vol] 9.4 mg/dL Normal 8.7-10.4 [facility] ([place]) Comment on above: Performed By: #### G FR, ANEU, CMP, PHOS, TROPHS, ADIFF, TSH, MG, CAION, CBC, PBNP #### [place] [address] Chloride [Moles/Vol] 102 mmol/L Normal 98-110 [facility] ([place]) Comment on above: Performed By: #### G FR, ANEU, CMP, PHOS, TROPHS, ADIFF, TSH, MG, CAION, CBC, PBNP #### [place] [address] CO2 [Moles/Vol] 21 mmol/L Low 22-32 [facility] ([place]) Comment on above: Performed By: #### G FR, ANEU, CMP, PHOS, TROPHS, ADIFF, TSH, MG, CAION, CBC, PBNP #### [place] [address] Creatinine [Mass/Vol] 0.84 mg/dL Normal 0.50-1.20 [facility] ([place]) Comment on above: Performed By: #### G FR, ANEU, CMP, PHOS, TROPHS, ADIFF, TSH, MG, CAION, CBC, PBNP #### [place] [address] Electrolyte Balance 8.0 mEq/L Normal 4.0-15.0 [facility] ([place]) Comment on above: Performed By: #### G FR, ANEU, CMP, PHOS, TROPHS, ADIFF, TSH, MG, CAION, CBC, PBNP #### [place] [phone] Globulin 4.0 G/dL High 1.5-3.8 [facility] ([place]) Comment on above: Performed By: #### G FR, ANEU, CMP, PHOS, TROPHS, ADIFF, TSH, MG, CAION, CBC, PBNP #### [place] [address] Glucose [Mass/Vol] 132 mg/dL High 82-115 [facility] ([place]) Comment on above: Performed By: #### G FR, ANEU, CMP, PHOS, TROPHS, ADIFF, TSH, MG, CAION, CBC, PBNP #### [address] [address] Potassium [Moles/Vol] 3.9 mmol/L Normal 3.5-5.0 [facility] ([place]) Comment on above: Result Comment: Spec imen slightly hemolyzed. Performed By: #### G FR, ANEU, CMP, PHOS, TROPHS, ADIFF, TSH, MG, CAION, CBC, PBNP #### [address] [address] Sodium [Moles/Vol] 131 mmol/L Low 136-145 [facility] ([place]) Comment on above: Performed By: #### G FR, ANEU, CMP, PHOS, TROPHS, ADIFF, TSH, MG, CAION, CBC, PBNP #### [address] [address] Total Protein 7.6 G/dL Normal 5.7-8.2 [facility] ([place]) Comment on above: Result Comment: No te - New Reference Range in effect 19 Performed By: #### G FR, ANEU, CMP, PHOS, TROPHS, ADIFF, TSH, MG, CAION, CBC, PBNP #### [address] [address] Urea nitrogen [Mass/Vol] 14.0 mg/dL Normal 8.0-22.0 [facility] ([place]) Comment on above: Performed By: #### G FR, ANEU, CMP, PHOS, TROPHS, ADIFF, TSH, MG, CAION, CBC, PBNP #### [address] [address] CRPon 07-11-2023 C-Reactive Protein 4.0 mg/dL High 0.0-1.0 [facility] ([place]) Comment on above: Result Comment: No te - New Reference Range in effect 20 Performed By: #### G FR, ANEU, CMP, PHOS, TROPHS, ADIFF, TSH, MG, CAION, CBC, PBNP #### [place] [phone] CVFLURVon 07-11-2023 FLU A PCR Positive Abnormal Negative [facility] ([place]) Comment on above: Result Comment: This organism causes a reportable disease. Infection Control has been notified. Results have been reported to the [facility]. Notes [id number] Performed By: #### G FR, ANEU, CMP, PHOS, TROPHS, ADIFF, TSH, MG, CAION, CBC, PBNP #### [place] [phone] FLU B PCR Negative Normal Negative [facility] ([place]) Comment on above: Result Comment: Note s [id number] Performed By: #### G FR, ANEU, CMP, PHOS, TROPHS, ADIFF, TSH, MG, CAION, CBC, PBNP #### [place] [phone] RSV PCR Negative Normal Negative [facility] ([place]) Comment on above: Result Comment: Note s [id number] Performed By: #### G FR, ANEU, CMP, PHOS, TROPHS, ADIFF, TSH, MG, CAION, CBC, PBNP #### [place] [address] SARS-CoV-2 (COVID-19) RNA ADE+probe Ql (Unsp spec) Negative Normal Negative [facility] ([place]) Comment on above: Result Comment: Note s [id number] This test has been authorized by FDA [...] ADIFF, TSH, MG, CAION, CBC, PBNP #### [address] [address] ESRon 07-11-2023 Erythrocyte Sed Rate 62 mm/hr High 0-30 [facility] ([place]) Comment on above: Performed By: #### G FR, ANEU, CMP, PHOS, TROPHS, ADIFF, TSH, MG, CAION, CBC, PBNP #### [address] [address] LABORATORYOrdered By: Joseph Ibrahim on 07-11-2023 Cholesterol [Mass/Vol] 259 mg/dL High 50 - 199 mg/dL [facility] Comment on above: Interpretive Data: [...] 07-11-2023 Cholesterol [Mass/Vol] 259 mg/dL High 50-199 [facility] ([place]) Comment on above: Result Comment: Chol esterol Reference Interval: Less than 200 Desirable 200-239 Borderline high risk 240 and above High risk Performed By: #### G FR, ANEU, CMP, PHOS, TROPHS, ADIFF, TSH, MG, CAION, CBC, PBNP #### [address] [address] Cholesterol in HDL [Mass/Vol] 46 mg/dL Normal 40-59 [facility] ([place]) Comment on above: Performed By: #### G FR, ANEU, CMP, PHOS, TROPHS, ADIFF, TSH, MG, CAION, CBC, PBNP #### [address] [address] Cholesterol in LDL [Mass/Vol] 184 mg/dL High 0-129 [facility] ([place]) Comment on above: Performed By: #### G FR, ANEU, CMP, PHOS, TROPHS, ADIFF, TSH, MG, CAION, CBC, PBNP #### [address] [address] Triglyceride [Mass/Vol] 147 mg/dL Normal 3-149 A [facility] ([place]) Comment on above: Performed By: #### G FR, ANEU, CMP, PHOS, TROPHS, ADIFF, TSH, MG, CAION, CBC, PBNP #### [address] [address] MGon 07-11-2023 Magnesium [Mass/Vol] 2.6 mg/dL High 1.6-2.4 [facility] ([place]) Comment on above: Performed By: #### G FR, ANEU, CMP, PHOS, TROPHS, ADIFF, TSH, MG, CAION, CBC, PBNP #### [address] [address] Magnesium [Mass/Vol] 1.5 mg/dL Low 1.6-2.4 [facility] ([place]) Comment on above: Performed By: #### G FR, ANEU, CMP, PHOS, TROPHS, ADIFF, TSH, MG, CAION, CBC, PBNP #### [address] [id number] MRSAPCRon 07-11-2023 MRSA (PCR) Detected Abnormal Not Detected [facility] ([place]) Comment on above: Result Comment: Note s [id number] Performed By: #### G FR, ANEU, CMP, PHOS, TROPHS, ADIFF, TSH, MG, CAION, CBC, PBNP #### [place] [address] MRSA PCR Int Normal [facility] ([place]) Comment on above: Result Comment: Stap [...] ADIFF, TSH, MG, CAION, CBC, PBNP #### [place] [address] PBNPon 07-11-2023 Natriuretic peptide B (Bld) [Mass/Vol] 8349 pg/mL High 0-900 [facility] ([place]) Comment on above: Result Comment: NT-p roBNP results of less than 300 pg/mL effectively rules out acute congestive heart failure with 99% negative predictive value. Performed By: #### G FR, ANEU, CMP, PHOS, TROPHS, ADIFF, TSH, MG, CAION, CBC, PBNP #### [address] 07-11-2023 Phosphate [Mass/Vol] 3.6 mg/dL Normal 2.4-5.1 [facility] ([place]) Comment on above: Result Comment: No te - New Reference Range in effect 19 Performed By: #### G FR, ANEU, CMP, PHOS, TROPHS, ADIFF, TSH, MG, CAION, CBC, PBNP #### [address] 07-11-2023 Troponin I High Sensitivity 24.62 ng/L Normal 0.00-34.00 [facility] ([place]) Comment on above: Performed By: #### G FR, ANEU, CMP, PHOS, TROPHS, ADIFF, TSH, MG, CAION, CBC, PBNP #### [place] [address] TSHon 07-11-2023 TSH 1.368 mIU/mL Normal 0.550-4.780 [facility] ([place]) Comment on above: Result Comment: No te - New Reference Range in effect 19 Performed By: #### G FR, ANEU, CMP, PHOS, TROPHS, ADIFF, TSH, MG, CAION, CBC, PBNP #### [place] [id number] UAon 07-11-2023 Color (U) Yellow Normal [facility] ([place]) Comment on above: Performed By: #### G FR, ANEU, CMP, PHOS, TROPHS, ADIFF, TSH, MG, CAION, CBC, PBNP #### [place] [address] Glucose (U) [Mass/Vol] Negative Normal Negative [facility] ([place]) Comment on above: Performed By: #### G FR, ANEU, CMP, PHOS, TROPHS, ADIFF, TSH, MG, CAION, CBC, PBNP #### [place] [address] Ketones Ql (U) Trace Normal Neg-Trace [facility] ([place]) Comment on above: Performed By: #### G FR, ANEU, CMP, PHOS, TROPHS, ADIFF, TSH, MG, CAION, CBC, PBNP #### [place] [address] UA Appear Clear Normal Clear [facility] ([place]) Comment on above: Performed By: #### G FR, ANEU, CMP, PHOS, TROPHS, ADIFF, TSH, MG, CAION, CBC, PBNP #### [place] [id number] UA Blood Moderate Abnormal Neg-Trace [facility] ([place]) Comment on above: Performed By: #### G FR, ANEU, CMP, PHOS, TROPHS, ADIFF, TSH, MG, CAION, CBC, PBNP #### [place] [address] UA Leuk Est Negative Normal Negative [facility] ([place]) Comment on above: Performed By: #### G FR, ANEU, CMP, PHOS, TROPHS, ADIFF, TSH, MG, CAION, CBC, PBNP #### [address] [address] UA Nitrite Negative Normal Negative [facility] ([place]) Comment on above: Performed By: #### G FR, ANEU, CMP, PHOS, TROPHS, ADIFF, TSH, MG, CAION, CBC, PBNP #### [place] [address] UA pH 5.5 Normal 5.0 - 8.0 [facility] ([place]) Comment on above: Performed By: #### G FR, ANEU, CMP, PHOS, TROPHS, ADIFF, TSH, MG, CAION, CBC, PBNP #### [place] [address] UA Protein 100 mg/dL Abnormal Negative [facility] ([place]) Comment on above: Performed By: #### G FR, ANEU, CMP, PHOS, TROPHS, ADIFF, TSH, MG, CAION, CBC, PBNP #### [address] [address] UA Spec Grav 1.015 Normal 1.006-1.029 [facility] ([place]) Comment on above: Performed By: #### G FR, ANEU, CMP, PHOS, TROPHS, ADIFF, TSH, MG, CAION, CBC, PBNP #### [place] [address] UA Specimen Type Void Normal [facility] ([place]) Comment on above: Performed By: #### G FR, ANEU, CMP, PHOS, TROPHS, ADIFF, TSH, MG, CAION, CBC, PBNP #### [address] [address] UA Urobilinogen 0.2 E.U./dL Normal 0.2-1.0 [facility] ([place]) Comment on above: Performed By: #### G FR, ANEU, CMP, PHOS, TROPHS, ADIFF, TSH, MG, CAION, CBC, PBNP #### [address] [address] Urobilinogen (U) [Mass/Vol] Negative Normal Neg-Trace [facility] ([place]) Comment on above: Performed By: #### G FR, ANEU, CMP, PHOS, TROPHS, ADIFF, TSH, MG, CAION, CBC, PBNP #### [address] [address] UAMICon 07-11-2023 UA Bacteria 2+ /hpf Abnormal Negative [facility] ([place]) Comment on above: Performed By: #### G FR, ANEU, CMP, PHOS, TROPHS, ADIFF, TSH, MG, CAION, CBC, PBNP #### [address] [address] UA Mucous 1+ /hpf Normal [facility] ([place]) Comment on above: Performed By: #### G FR, ANEU, CMP, PHOS, TROPHS, ADIFF, TSH, MG, CAION, CBC, PBNP #### [place] [address] UA RBC 3-5 Abnormal 0-2 [facility] ([place]) Comment on above: Performed By: #### G FR, ANEU, CMP, PHOS, TROPHS, ADIFF, TSH, MG, CAION, CBC, PBNP #### [address] [address] UA Squam Epithelial Negative Normal 0-20 [facility] ([place]) Comment on above: Performed By: #### G FR, ANEU, CMP, PHOS, TROPHS, ADIFF, TSH, MG, CAION, CBC, PBNP #### [address] [address] UA WBC Rare Normal 0-5 [facility] ([place]) Comment on above: Performed By: #### G FR, ANEU, CMP, PHOS, TROPHS, ADIFF, TSH, MG, CAION, CBC, PBNP #### [place] [address] XR CHEST 1 VIEWon 07-11-2023 XR CHEST [...] Sign Date: 07/10/2023 10:41:58 PM [facility] ([place] XR HUMERUS MINIMUM 2 VIEWS [facility] 07-11-2023 XR HUMERUS MINIMUM 2 VIEWS [...] surrounding the ulnar component which could be provider service representative of loosening or particle disease. [...] Lucency surrounding the elbow prosthesis could be provider service representative of loosening, infection, or particle disease. Interpreted by: Kan Bradley MD Preliminary Report By: Kan Bradley MD Electronically signed By Kan Bradley MD Dictated Date: 07/11/2023 12:29:16 PM Prelim Date: 07/11/2023 12:32:10 PM Sign Date: 07/11/2023 12:32:10 PM Ordering Provider: BRITT Robertson [facility] ([place]) .Auto Diffon 07-10-2023 Basophil, Absolute 0.0 10 3/mcL Normal 0.0-0.2 [facility] ([place]) Comment on above: Performed By: #### G FR, ANEU, CMP, PHOS, TROPHS, ADIFF, TSH, MG, CAION, CBC, PBNP #### [address] [address] Basophils/100 WBC (Bld) 0.4 % Normal 0.0-2.5 A [facility] ([place]) Comment on above: Performed By: #### G FR, ANEU, CMP, PHOS, TROPHS, ADIFF, TSH, MG, CAION, CBC, PBNP #### [address] [address] Eosinophil, Absolute 0.0 10 3/mcL Normal 0.0-0.4 [facility] ([place]) Comment on above: Performed By: #### G FR, ANEU, CMP, PHOS, TROPHS, ADIFF, TSH, MG, CAION, CBC, PBNP #### [address] [address] Eosinophils/100 WBC (Bld) 0.3 % Normal 0.0-7.0 [facility] ([place]) Comment on above: Performed By: #### G FR, ANEU, CMP, PHOS, TROPHS, ADIFF, TSH, MG, CAION, CBC, PBNP #### [address] [address] Lymphocyte, Absolute 0.3 10 3/mcL Low 0.8-3.9 [facility] ([place]) Comment on above: Performed By: #### G FR, ANEU, CMP, PHOS, TROPHS, ADIFF, TSH, MG, CAION, CBC, PBNP #### [address] [address] Lymphocytes/100 WBC (Bld) 5.9 % Low 10.0-50.0 [facility] ([place]) Comment on above: Performed By: #### G FR, ANEU, CMP, PHOS, TROPHS, ADIFF, TSH, MG, CAION, CBC, PBNP #### [address] [address] Monocyte, Absolute 0.3 10 3/mcL Normal 0.2-1.0 [facility] ([place]) Comment on above: Performed By: #### G FR, ANEU, CMP, PHOS, TROPHS, ADIFF, TSH, MG, CAION, CBC, PBNP #### [address] [address] Monocytes/100 WBC (Bld) 6.2 % Normal 1.7-13.0 A [facility] ([place]) Comment on above: Performed By: #### G FR, ANEU, CMP, PHOS, TROPHS, ADIFF, TSH, MG, CAION, CBC, PBNP #### [address] [address] Neutrophils/100 WBC (Bld) 87.2 % High 37.0-80.0 [facility] ([place]) Comment on above: Performed By: #### G FR, ANEU, CMP, PHOS, TROPHS, ADIFF, TSH, MG, CAION, CBC, PBNP #### [address] [address] .GFRon 07-10-2023 GFR 57 ml/min/1.73sqm Normal [facility] ([place]) Comment on above: Result Comment: GFR [...] ADIFF, TSH, MG, CAION, CBC, PBNP #### [address] [address] GFR Non- 47 ml/min/1.73sqm Normal [facility] ([place]) Comment on above: Result Comment: GFR [...] ADIFF, TSH, MG, CAION, CBC, PBNP #### [address] [address] .MDWon 07-10-2023 Monocyte Distribution Width 26.61 High 0.00-20.00 [facility] ([place]) Comment on above: Result Comment: For adults in ED, MDW>20.0 may be associated with a higher risk of sepsis during the first 12hrs of hospital admission Performed By: #### G FR, ANEU, CMP, PHOS, TROPHS, ADIFF, TSH, MG, CAION, CBC, PBNP #### [address] [address] .NEUABSon 07-10-2023 Neutrophil, Absolute 4.6 10 3/mcL Normal 2.9-6.2 [facility] ([place]) Comment on above: Performed By: #### G FR, ANEU, CMP, PHOS, TROPHS, ADIFF, TSH, MG, CAION, CBC, PBNP #### [address] [address] .Urinalysis Microscopic (AO) on 07-10-2023 UA Bacteria 4+ /hpf Abnormal [facility] ([place]) Comment on above: Performed By: #### G FR, ANEU, CMP, PHOS, TROPHS, ADIFF, TSH, MG, CAION, CBC, PBNP #### [address] [address] UA RBC 0-5 Abnormal None Seen [facility] ([place]) Comment on above: Performed By: #### G FR, ANEU, CMP, PHOS, TROPHS, ADIFF, TSH, MG, CAION, CBC, PBNP #### [address] [address] UA Squam Epithelial 0-5 Abnormal None Seen [facility] ([place]) Comment on above: Performed By: #### G FR, ANEU, CMP, PHOS, TROPHS, ADIFF, TSH, MG, CAION, CBC, PBNP #### [place] [address] UA WBC 0-5 Abnormal None Seen [facility] ([place]) Comment on above: Performed By: #### G FR, ANEU, CMP, PHOS, TROPHS, ADIFF, TSH, MG, CAION, CBC, PBNP #### [address] [address] UA Yeast 1+ /hpf Abnormal [facility] ([place]) Comment on above: Performed By: #### G FR, ANEU, CMP, PHOS, TROPHS, ADIFF, TSH, MG, CAION, CBC, PBNP #### [address] [address] BMPon 07-10-2023 BUN/Creatinine Ratio 18 ratio Normal 7-27 [facility] ([place]) Comment on above: Performed By: #### G FR, ANEU, CMP, PHOS, TROPHS, ADIFF, TSH, MG, CAION, CBC, PBNP #### [place] [address] Calcium [Mass/Vol] 9.1 mg/dL Normal 8.4-10.2 [facility] ([place]) Comment on above: Performed By: #### G FR, ANEU, CMP, PHOS, TROPHS, ADIFF, TSH, MG, CAION, CBC, PBNP #### [address] [address] Chloride [Moles/Vol] 97 mmol/L Low 98-107 [facility] ([place]) Comment on above: Performed By: #### G FR, ANEU, CMP, PHOS, TROPHS, ADIFF, TSH, MG, CAION, CBC, PBNP #### [address] [address] CO2 [Moles/Vol] 27 mmol/L Normal 23-31 [facility] ([place]) Comment on above: Performed By: #### G FR, ANEU, CMP, PHOS, TROPHS, ADIFF, TSH, MG, CAION, CBC, PBNP #### [address] [address] Creatinine [Mass/Vol] 1.14 mg/dL High 0.55-1.02 [facility] ([place]) Comment on above: Performed By: #### G FR, ANEU, CMP, PHOS, TROPHS, ADIFF, TSH, MG, CAION, CBC, PBNP #### [address] [address] Electrolyte Balance 11.0 mEq/L Normal 4.0-15.0 [facility] ([place]) Comment on above: Performed By: #### G FR, ANEU, CMP, PHOS, TROPHS, ADIFF, TSH, MG, CAION, CBC, PBNP #### [address] [address] Glucose [Mass/Vol] 181 mg/dL High 83-110 [facility] ([place]) Comment on above: Performed By: #### G FR, ANEU, CMP, PHOS, TROPHS, ADIFF, TSH, MG, CAION, CBC, PBNP #### [address] [address] Potassium [Moles/Vol] 4.0 mmol/L Normal 3.5-5.1 [facility] ([place]) Comment on above: Performed By: #### G FR, ANEU, CMP, PHOS, TROPHS, ADIFF, TSH, MG, CAION, CBC, PBNP #### [place] [address] Sodium [Moles/Vol] 135 mmol/L Low 136-145 [facility] ([place]) Comment on above: Performed By: #### G FR, ANEU, CMP, PHOS, TROPHS, ADIFF, TSH, MG, CAION, CBC, PBNP #### [place] [address] Urea nitrogen [Mass/Vol] 21 mg/dL High 7-18 [facility] ([place]) Comment on above: Performed By: #### G FR, ANEU, CMP, PHOS, TROPHS, ADIFF, TSH, MG, CAION, CBC, PBNP #### [place] [address] CBCon 07-10-2023 Erythrocyte distribution width (RBC) [Ratio] 15.3 % High 11.5-14.5 [facility] ([place]) Comment on above: Performed By: #### G FR, ANEU, CMP, PHOS, TROPHS, ADIFF, TSH, MG, CAION, CBC, PBNP #### [place] [address] Hematocrit (Bld) [Volume fraction] 36.4 % Low 37.0-47.0 [facility] ([place]) Comment on above: Performed By: #### G FR, ANEU, CMP, PHOS, TROPHS, ADIFF, TSH, MG, CAION, CBC, PBNP #### [place] [address] Hgb 12.5 G/dL Normal 12.0-16.0 [facility] ([place]) Comment on above: Performed By: #### G FR, ANEU, CMP, PHOS, TROPHS, ADIFF, TSH, MG, CAION, CBC, PBNP #### [place] [address] MCH (RBC) [Entitic mass] 29.2 pg Normal 27.0-31.2 [facility] ([place]) Comment on above: Performed By: #### G FR, ANEU, CMP, PHOS, TROPHS, ADIFF, TSH, MG, CAION, CBC, PBNP #### [place] [address] MCHC 34.4 G/dL Normal 33.0-37.0 [facility] ([place]) Comment on above: Performed By: #### G FR, ANEU, CMP, PHOS, TROPHS, ADIFF, TSH, MG, CAION, CBC, PBNP #### [place] [address] MCV (RBC) [Entitic vol] 84.8 fL Normal 80.0-94.0 A [facility] ([place]) Comment on above: Performed By: #### G FR, ANEU, CMP, PHOS, TROPHS, ADIFF, TSH, MG, CAION, CBC, PBNP #### [place] [address] Platelet 200 10 3/mcL Normal 130-400 [facility] ([place]) Comment on above: Performed By: #### G FR, ANEU, CMP, PHOS, TROPHS, ADIFF, TSH, MG, CAION, CBC, PBNP #### [place] [address] Platelet mean volume (Bld) [Entitic vol] 7.5 fL Normal 7.4-10.4 [facility] ([place]) Comment on above: Performed By: #### G FR, ANEU, CMP, PHOS, TROPHS, ADIFF, TSH, MG, CAION, CBC, PBNP #### [place] [address] RBC 4.29 10 6/mcL Normal 4.20-5.40 [facility] ([place]) Comment on above: Performed By: #### G FR, ANEU, CMP, PHOS, TROPHS, ADIFF, TSH, MG, CAION, CBC, PBNP #### [place] [address] WBC 5.2 10 3/mcL Normal 4.6-10.8 [facility] ([place]) Comment on above: Performed By: #### G FR, ANEU, CMP, PHOS, TROPHS, ADIFF, TSH, MG, CAION, CBC, PBNP #### [place] [address] [address] HEAD OR BRAIN W/O CONTRAS Ton [...] 07/10/2023 11:49:26 AM Ordering Provider: CARLOS POLANCO [facility] ([place]) CT HIP W/O CONTRAST RIGHTon 07-10-2023 [...] Date: 07/10/2023 2:58:24 PM Ordering Provider: CARLOS POLANCO [facility] ([place] CT SPINE CERVICAL W/O CONTRA STon [...] 07/10/2023 11:51:46 AM Ordering Provider: CARLOS Robertson [facility] ([place]) LABORATORYOrdered By: SYSTEM SYSTEM on 07-10-2023 [...] notified. Results have been reported to the [facility]. Notes [id number] FLUBV RNA ADE+probe Ql (Resp) Negative 15 (07/10/23 11:48 PM) Normal Negative [facility]Sero SS Comment on above: Result Comment: Note s [id number] MRSA (PCR) Detected 1 *ABN* (07/10/23 11:48 PM) Invalid Interpretation Code Not Detected [facility]Sero SS Comment on above: Result Comment: Note s [id number] MRSA PCR Int Staph aureus DNA detected [...] Comment on above: Result Comment: Note s [id number] SARS-CoV-2 (COVID-19) RNA ADE+probe Ql (Resp) Negative 12, 13 (07/10/23 11:48 PM) Normal Negative [facility]Sero SS Comment on above: Result Comment: Note s [id number] Interpretive Data: T his test has been [...] Routine cultures are held for 5 days. [facility] Culture Urine 50,000 - 100,000 cfu/ml Escherichia coli ESBL Refer to previous culture for susceptibility. [id number] collected 07-10-23 Extended-Spectrum B-Lactamase isolate may be clinically resistant to therapy with Penicillins, Cephalosporinsor Aztreonam despite apparent in vitro susceptibility to some of these agents. Use of Imipenem is currently restricted to Infectious Disease /Intensivists. Please consult Physicians accordingly. [facility] Escherichia coli ESBL Escherichia coli ESBL [facility] Legionella Urine Ag Presumptive negative for L. pneumophila serogroup 1 antigen in urine, suggesting no recent or current infection. Legionnaire's disease cannot be ruled out since other serogroups and species may also cause disease. [facility] Streptococcus Pneumoniae Urine Antig Presumptive negative for pneumococcal pneumonia, suggesting no current or recent pneumococcal infection. Infection due to Strep pneumoniae cannot be ruled out since the antigen present in the sample may be below the detection limit of the test. [facility] Comment on above: This test has not be en evaluated on patients taking antibiotics for greater than 24 hours or on patients who have recently completed an antibiotic regimen. The accuracy of this test has not been proven in young children. PBNPon 07-10-2023 Natriuretic peptide B (Bld) [Mass/Vol] 7713 pg/mL High 0-125 [facility] ([place]) Comment on above: Result Comment: NT-p roBNP results of less than 300 pg/mL effectively rules out acute congestive heart failure with 99% negative predictive value. Performed By: #### G FR, ANEU, CMP, PHOS, TROPHS, ADIFF, TSH, MG, CAION, CBC, PBNP #### [place] [address] TROPHSon 07-10-2023 Troponin I High Sensitivity 32.2 ng/L Normal 0.0-51.4 [facility] ([place]) Comment on above: Performed By: #### G FR, ANEU, CMP, PHOS, TROPHS, ADIFF, TSH, MG, CAION, CBC, PBNP #### [place] [address] Troponin I High Sensitivity 28.9 ng/L Normal 0.0-51.4 [facility] ([place]) Comment on above: Performed By: #### G FR, ANEU, CMP, PHOS, TROPHS, ADIFF, TSH, MG, CAION, CBC, PBNP #### [place] [address] UAon 07-10-2023 Color (U) Yellow Normal [facility] ([place]) Comment on above: Performed By: #### G FR, ANEU, CMP, PHOS, TROPHS, ADIFF, TSH, MG, CAION, CBC, PBNP #### [place] [address] Glucose (U) [Mass/Vol] Negative Normal Negative [facility] ([place]) Comment on above: Performed By: #### G FR, ANEU, CMP, PHOS, TROPHS, ADIFF, TSH, MG, CAION, CBC, PBNP #### [place] [address] Ketones Ql (U) Negative Normal Negative [facility] ([place]) Comment on above: Performed By: #### G FR, ANEU, CMP, PHOS, TROPHS, ADIFF, TSH, MG, CAION, CBC, PBNP #### [place] [address] UA Appear Cloudy Abnormal Clear [facility] ([place]) Comment on above: Performed By: #### G FR, ANEU, CMP, PHOS, TROPHS, ADIFF, TSH, MG, CAION, CBC, PBNP #### [address] [address] UA Blood Small Abnormal Negative [facility] ([place]) Comment on above: Performed By: #### G FR, ANEU, CMP, PHOS, TROPHS, ADIFF, TSH, MG, CAION, CBC, PBNP #### [place] [address] UA Leuk Est Negative Normal Negative [facility] ([place]) Comment on above: Performed By: #### G FR, ANEU, CMP, PHOS, TROPHS, ADIFF, TSH, MG, CAION, CBC, PBNP #### [place] [address] UA Nitrite Positive Abnormal Negative [facility] ([place]) Comment on above: Performed By: #### G FR, ANEU, CMP, PHOS, TROPHS, ADIFF, TSH, MG, CAION, CBC, PBNP #### [place] [address] UA pH 6.0 Normal 5.0 - 8.0 [facility] ([place]) Comment on above: Performed By: #### G FR, ANEU, CMP, PHOS, TROPHS, ADIFF, TSH, MG, CAION, CBC, PBNP #### [place] [address] UA Protein 100 mg/dL Abnormal Negative [facility] ([place]) Comment on above: Performed By: #### G FR, ANEU, CMP, PHOS, TROPHS, ADIFF, TSH, MG, CAION, CBC, PBNP #### [place] [address] UA Spec Grav >=1.030 Abnormal 1.015-1.025 [facility] ([place]) Comment on above: Performed By: #### G FR, ANEU, CMP, PHOS, TROPHS, ADIFF, TSH, MG, CAION, CBC, PBNP #### [place] [address] UA Specimen Type Clean Catch Normal [facility] ([place]) Comment on above: Performed By: #### G FR, ANEU, CMP, PHOS, TROPHS, ADIFF, TSH, MG, CAION, CBC, PBNP #### [address] [address] UA Urobilinogen 0.2 E.U./dL Normal 0.2-1.0 [facility] ([place]) Comment on above: Performed By: #### G FR, ANEU, CMP, PHOS, TROPHS, ADIFF, TSH, MG, CAION, CBC, PBNP #### [address] [address] Urobilinogen (U) [Mass/Vol] Negative Normal Negative [facility] ([place]) Comment on above: Performed By: #### G FR, ANEU, CMP, PHOS, TROPHS, ADIFF, TSH, MG, CAION, CBC, PBNP #### [address] [address] XR CHEST 1 VIEWon 07-10-2023 XR CHEST [...] 07/10/2023 11:51:57 AM Ordering Provider: CARLOS Robertson [facility] ([place]) XR HIP RIGHT W/PELVIS 4 VIEW [...] José Mckeon MD Electronically signed By José Mckeno MD Dictated Date: 07/10/2023 11:53:57 AM Prelim Date: 07/10/2023 11:57:05 AM Sign Date: 07/10/2023 11:57:05 AM Ordering Provider: CARLOS Robertson [facility] ([place]) Whole blood hemoglobin A1c/t otal hemoglobin ratio (mass fraction)Ordered By: Tushar Fields on 04-19-2023 HbA1c (Bld) [Mass fraction] 6.3 % 3.8-5.6 [facility] Comment on above: Normal < 5.7 % Predi abetic 5.7 - 6.4 % Diabetic >or= 6.5 % Please note range changes. Absolute lymphocyte countOrd ered By: Sebastian Sesay on 04-07-2023 Lymphocytes Auto (Unsp spec) [#/Vol] 0.76 10*3/uL 0.83-4.51 [facility] Basophil percentageOrdered B y: Sebastian Sesay on 04-07-2023 Basophil percentage 217 mg/dL 74-106 [facility] Basophil percentage 136 mmol/L 136-145 [facility] Basophil percentage 4.4 mmol/L 3.5-5.1 [facility] Basophil percentage 107 mmol/L 98-107 [facility] Basophils (Bld) [#/Vol] 6.4 10*3/uL 4.4-11.0 [facility] Basophils (Bld) [#/Vol] 4.8 10*3/uL 2.0-7.7 [facility] Basophils/100 WBC (Bld) 75.5 % 47-70 [facility] Basophils/100 WBC (Bld) 0.8 % 0-5 [facility] Basophils/100 WBC (Bld) 0.3 % 0-1 [facility] Chloride [Moles/Vol] 107 mmol/L 98-107 [facility] Eosinophils/100 WBC (Bld) 0.8 % 0-5 [facility] Glucose [Mass/Vol] 217 mg/dL 74-106 [facility] Comment on above: Glucose result great er than or equal to 200 mg/dLsuggests DIABETES MELLITUS per A.D.A. criteria. Neutrophils (Bld) [#/Vol] 4.8 10*3/uL 2.0-7.7 [facility] Neutrophils/100 WBC (Bld) 75.5 % 47-70 [facility] Potassium [Moles/Vol] 4.4 mmol/L 3.5-5.1 [facility] Sodium [Moles/Vol] 136 mmol/L 136-145 [facility] WBC (Bld) [#/Vol] 6.4 10*3/uL 4.4-11.0 [facility] Blood erythrocytes count (nu mber/volume)Ordered By: Sebastian Sesay on 04-07-2023 RBC (Bld) [#/Vol] 4.27 10*6/uL 4.2-5.4 [facility] Blood hemoglobin measurement (mass/volume)Ordered By: Sebastian Sesay on 04-07-2023 Hemoglobin (Bld) [Mass/Vol] 11.7 g/dL 12.0-15.0 [facility] Blood lymphocytes/100 leukoc ytesOrdered By: Sebastian Sesay on 04-07-2023 Lymphocytes/100 WBC (Bld) 11.9 % 19-41 [facility] Blood monocytes/100 leukocyt esOrdered By: Sebastian Sesay on 04-07-2023 Monocytes/100 WBC (Bld) 11.2 % 0-10 [facility] Blood platelet mean volumeOr dered By: Sebastian Sesay on 04-07-2023 Platelet mean volume (Bld) [Entitic vol] 10.0 fL 6.2-12.0 [facility] Determination of erythrocyte mean corpuscular volume (MCV)Ordered By: Sebastian Sesay on 04-07-2023 MCV (RBC) [Entitic vol] 87.8 fL 81-99 [facility] Hematocrit Auto (Bld) [Volum e fraction]Ordered By: Sebastian Sesay on 04-07-2023 Hematocrit (Bld) [Volume fraction] 37.5 % 37-47 [facility] Laboratory - Chemistry and C hemistry - challengeOrdered By: Sebastian Sesay on 04-07-2023 CO2 [Moles/Vol] 21.0 mmol/L 21.0-32.0 [facility] Urea nitrogen/Creatinine [Mass ratio] 24.4 mg/mg 10-20 [facility] Laboratory - Hematology and Cell countsOrdered By: Sebastian Sesay on 04-07-2023 Erythrocyte distribution width (RBC) [Entitic vol] 51.4 fL 35.1-43.9 [facility] Erythrocyte distribution width (RBC) [Ratio] 15.9 % 11.6-14.6 [facility] Immature granulocytes/100 WBC (Bld) 0.300 % 0.0-0.9 [facility] Comment on above: IG% - Immature Granu locytes (promyelocytes, myelocytes and metamyelocytes) > 1% indicates that a LEFT SHIFT is Present. MCH (RBC) [Entitic mass] 27.4 pg 27.0-32.0 [facility] Nucleated RBC/100 WBC (Bld) [Ratio] 0 % 0-5 [facility] MCHC Auto (RBC) [Mass/Vol]Or dered By: Sebastian Sesay on 04-07-2023 MCHC (RBC) [Mass/Vol] 31.2 g/dL 32-36 [facility] No Panel InformationOrdered By: Sebastian Sesay on 04-07-2023 Estimated Creatinine Clearance Calc 30.66 ml/min [facility] Estimated GFR (MDRD) Amer 53 mL/min >60 [facility] Comment on above: GFR Calc Estimated GFR (MDRD) Non-Af Amer 44 mL/min >60 [facility] Comment on above: Non- GFR Calc Troponin I High Sensitivity 23 pg/mL 3.0-54.0 [facility] Comment on above: Please Note: [place] t Units and Gender Specific Reference Ranges. For more information see Policy Stat Procedure [place] High Sensitivity Troponin (TNIH) and attachments. 27.4 pg 27.0-32.0 [facility] 15.9 % 11.6-14.6 [facility] 51.4 fl 35.1-43.9 [facility] 0.300 % 0.0-0.9 [facility] 0 % 0-5 [facility] 44 mL/min >60 [facility] 53 mL/min >60 [facility] 30.66 ml/min [facility] 24.4 RATIO 10-20 [facility] 23 pg/mL 3.0-54.0 [facility] 21.0 mmol/L 21.0-32.0 [facility] Platelets bldOrdered By: Benito Sesay on 04-07-2023 Platelets (Bld) [#/Vol] 213 10*3/uL 150-450 [facility] Serum or plasma calcium keyona urement (mass/volume)Ordered By: Sebastian Sesay on 04-07-2023 Calcium [Mass/Vol] 9.2 mg/dL 8.5-10.1 [facility] Serum or plasma creatinine m easurement (mass/volume)Ordered By: Sebastian Sesay on 04-07-2023 Creatinine [Mass/Vol] 1.27 mg/dL 0.55-1.02 [facility] Comment on above: The validity of the calculated GFR & GFRAA in patients over 70 years has not been determined. Clinical correlation is essential. Serum or plasma urea nitroge n measurement (mass/volume)Ordered By: Sebastian Sesay on 04-07-2023 Urea nitrogen [Mass/Vol] 31 mg/dL 7-18 [facility] Thin prep Papanicolaou smear with manual screeningOrdered By: Sebastian Sesay on 04-07-2023 Thin prep Papanicolaou smear with manual screening 8 5-15 [facility] Basophil percentageOrdered B y: Tushar Fields on 02-24-2023 Basophil percentage 97 mg/dL 74-106 [facility] Basophil percentage 6.7 g/dL 6.4-8.2 [facility] Basophil percentage 0.20 mg/dL 0.20-1.00 [facility] Basophil percentage 141 mmol/L 136-145 [facility] Basophil percentage 4.3 mmol/L 3.5-5.1 [facility] Basophil percentage 109 mmol/L 98-107 [facility] Basophils (Bld) [#/Vol] 7.2 10*3/uL 4.4-11.0 [facility] Blood erythrocytes count (nu mber/volume)Ordered By: Tushar Fields on 02-24-2023 RBC (Bld) [#/Vol] 3.76 10*6/uL 4.2-5.4 [facility] Blood hemoglobin measurement (mass/volume)Ordered By: Tushar Fields on 02-24-2023 Hemoglobin (Bld) [Mass/Vol] 10.3 g/dL 12.0-15.0 [facility] Blood platelet mean volumeOr dered By: Tushar Fields on 02-24-2023 Platelet mean volume (Bld) [Entitic vol] 10.4 fL 6.2-12.0 [facility] Determination of erythrocyte mean corpuscular volume (MCV)Ordered By: Tushar Fields on 02-24-2023 MCV (RBC) [Entitic vol] 89.9 fL 81-99 [facility] Hematocrit Auto (Bld) [Volum e fraction]Ordered By: Tushar Fields on 02-24-2023 Hematocrit (Bld) [Volume fraction] 33.8 % 37-47 [facility] MCHC Auto (RBC) [Mass/Vol]Or dered By: Tushar Fields on 02-24-2023 MCHC (RBC) [Mass/Vol] 30.5 g/dL 32-36 [facility] No Panel InformationOrdered By: Tushar Fields on 02-24-2023 27.4 pg 27.0-32.0 [facility] 15.2 % 11.6-14.6 [facility] 49.4 fl 35.1-43.9 [facility] 55 mL/min >60 [facility] 66 mL/min >60 [facility] 33.3 RATIO 10-20 [facility] 3.9 g/dL 2.2-4.2 [facility] 90 U/L 45-117 [facility] 25 U/L 13-56 [facility] 27.0 mmol/L 21.0-32.0 [facility] Platelets bldOrdered By: Elvira Fields on 02-24-2023 Platelets (Bld) [#/Vol] 256 10*3/uL 150-450 [facility] Serum or plasma albumin keyona urement (mass/volume)Ordered By: Tushar Fields on 02-24-2023 Albumin [Mass/Vol] 2.8 g/dL 3.2-5.0 [facility] Serum or plasma albumin/glob ulin mass ratioOrdered By: Tushar Fields on 02-24-2023 Albumin/Globulin [Mass ratio] 0.7 {ratio} 0.9-2.4 [facility] Serum or plasma calcium keyona urement (mass/volume)Ordered By: Tushar Fields on 02-24-2023 Calcium [Mass/Vol] 9.3 mg/dL 8.5-10.1 [facility] Serum or plasma creatinine m easurement (mass/volume)Ordered By: Tushar Fields on 02-24-2023 Creatinine [Mass/Vol] 1.05 mg/dL 0.55-1.02 [facility] Serum or plasma urea nitroge n measurement (mass/volume)Ordered By: Tushar Fields on 02-24-2023 Urea nitrogen [Mass/Vol] 35 mg/dL 7-18 [facility] Thin prep Papanicolaou smear with manual screeningOrdered By: Tushar Fields on 02-24-2023 Thin prep Papanicolaou smear with manual screening 18 U/L 15-37 [facility] Thin prep Papanicolaou smear with manual screening 5 5-15 [facility] Basophil percentageOrdered B y: Tushar Fields on 02-08-2023 Basophil percentage 95 mg/dL 74-106 [facility] Basophil percentage 6.7 g/dL 6.4-8.2 [facility] Basophil percentage 0.20 mg/dL 0.20-1.00 [facility] Basophil percentage 138 mmol/L 136-145 [facility] Basophil percentage 4.0 mmol/L 3.5-5.1 [facility] Basophil percentage 106 mmol/L 98-107 [facility] Basophils (Bld) [#/Vol] 8.6 10*3/uL 4.4-11.0 [facility] Blood erythrocytes count (nu mber/volume)Ordered By: Tushar Fields on 02-08-2023 RBC (Bld) [#/Vol] 3.43 10*6/uL 4.2-5.4 [facility] Blood hemoglobin measurement (mass/volume)Ordered By: Tushar Fields on 02-08-2023 Hemoglobin (Bld) [Mass/Vol] 9.6 g/dL 12.0-15.0 [facility] Blood platelet mean volumeOr dered By: Tushar Fields on 02-08-2023 Platelet mean volume (Bld) [Entitic vol] 10.4 fL 6.2-12.0 [facility] Determination of erythrocyte mean corpuscular volume (MCV)Ordered By: Tushar Fields on 02-08-2023 MCV (RBC) [Entitic vol] 89.8 fL 81-99 [facility] Hematocrit Auto (Bld) [Volum e fraction]Ordered By: Tushar Fields on 02-08-2023 Hematocrit (Bld) [Volume fraction] 30.8 % 37-47 [facility] MCHC Auto (RBC) [Mass/Vol]Or dered By: Tushar Fields on 02-08-2023 MCHC (RBC) [Mass/Vol] 31.2 g/dL 32-36 [facility] No Panel InformationOrdered By: Tushar Fields on 02-08-2023 28.0 pg 27.0-32.0 [facility] 14.7 % 11.6-14.6 [facility] 49.1 fl 35.1-43.9 [facility] 58 mL/min >60 [facility] 71 mL/min >60 [facility] 32.1 RATIO 10-20 [facility] 3.9 g/dL 2.2-4.2 [facility] 101 U/L 45-117 [facility] 22 U/L 13-56 [facility] 27.0 mmol/L 21.0-32.0 [facility] Platelets bldOrdered By: Elvira Fields on 02-08-2023 Platelets (Bld) [#/Vol] 280 10*3/uL 150-450 [facility] Serum or plasma albumin keyona urement (mass/volume)Ordered By: Tushar Fields on 02-08-2023 Albumin [Mass/Vol] 2.8 g/dL 3.2-5.0 [facility] Serum or plasma albumin/glob ulin mass ratioOrdered By: Tushar Fields on 02-08-2023 Albumin/Globulin [Mass ratio] 0.7 {ratio} 0.9-2.4 [facility] Serum or plasma calcium keyona urement (mass/volume)Ordered By: Tushar Fields on 02-08-2023 Calcium [Mass/Vol] 8.9 mg/dL 8.5-10.1 [facility] Serum or plasma creatinine m easurement (mass/volume)Ordered By: Tushar Fields on 02-08-2023 Creatinine [Mass/Vol] 1.00 mg/dL 0.55-1.02 [facility] Serum or plasma urea nitroge n measurement (mass/volume)Ordered By: Tushar Fields on 02-08-2023 Urea nitrogen [Mass/Vol] 32 mg/dL 7-18 [facility] Thin prep Papanicolaou smear with manual screeningOrdered By: Tushar Fields on 02-08-2023 Thin prep Papanicolaou smear with manual screening 18 U/L 15-37 [facility] Thin prep Papanicolaou smear with manual screening 5 5-15 [facility] Basophil percentageOrdered B y: Tushar Fields on 01-03-2023 Basophil percentage 68 mg/dL 74-106 [facility] Basophil percentage 140 mmol/L 136-145 [facility] Basophil percentage 3.9 mmol/L 3.5-5.1 [facility] Basophil percentage 107 mmol/L 98-107 [facility] Basophils (Bld) [#/Vol] 9.6 10*3/uL 4.4-11.0 [facility] Blood erythrocytes count (nu mber/volume)Ordered By: Tushar Fields on 01-03-2023 RBC (Bld) [#/Vol] 2.98 10*6/uL 4.2-5.4 [facility] Blood hemoglobin measurement (mass/volume)Ordered By: Tushar Fields on 01-03-2023 Hemoglobin (Bld) [Mass/Vol] 8.5 g/dL 12.0-15.0 [facility] Blood platelet mean volumeOr dered By: Tushar Fields on 01-03-2023 Platelet mean volume (Bld) [Entitic vol] 9.8 fL 6.2-12.0 [facility] Determination of erythrocyte mean corpuscular volume (MCV)Ordered By: Tushar Fields on 01-03-2023 MCV (RBC) [Entitic vol] 95.6 fL 81-99 [facility] Hematocrit Auto (Bld) [Volum e fraction]Ordered By: Tushar Fields on 01-03-2023 Hematocrit (Bld) [Volume fraction] 28.5 % 37-47 [facility] MCHC Auto (RBC) [Mass/Vol]Or dered By: Tushar Fields on 01-03-2023 MCHC (RBC) [Mass/Vol] 29.8 g/dL 32-36 [facility] No Panel InformationOrdered By: Tushar Fields on 01-03-2023 28.5 pg 27.0-32.0 [facility] 16.5 % 11.6-14.6 [facility] 56.4 fl 35.1-43.9 [facility] 56 mL/min >60 [facility] 67 mL/min >60 [facility] 22.1 RATIO 10-20 [facility] 28.0 mmol/L 21.0-32.0 [facility] Platelets bldOrdered By: Elvira Fields on 01-03-2023 Platelets (Bld) [#/Vol] 332 10*3/uL 150-450 [facility] Serum or plasma calcium keyona urement (mass/volume)Ordered By: Tushar Fields on 01-03-2023 Calcium [Mass/Vol] 9.1 mg/dL 8.5-10.1 [facility] Serum or plasma creatinine m easurement (mass/volume)Ordered By: Tushar Fields on 01-03-2023 Creatinine [Mass/Vol] 1.04 mg/dL 0.55-1.02 [facility] Serum or plasma urea nitroge n measurement (mass/volume)Ordered By: Tushar Fields on 01-03-2023 Urea nitrogen [Mass/Vol] 23 mg/dL 7-18 [facility] Thin prep Papanicolaou smear with manual screeningOrdered By: Tushar Fields on 01-03-2023 Thin prep Papanicolaou smear with manual screening 09 17- [facility] .Auto Diffon 12-28-2022 Basophil, Absolute 0.0 10 3/mcL Normal 0.0-0.3 [facility] ([place]) Comment on above: Performed By: #### G FR, ANEU, CMP, PHOS, TROPHS, ADIFF, TSH, MG, CAION, CBC, PBNP #### [address] [address] Basophils/100 WBC (Bld) 0.4 % Normal 0.0-2.5 A [facility] ([place]) Comment on above: Performed By: #### G FR, ANEU, CMP, PHOS, TROPHS, ADIFF, TSH, MG, CAION, CBC, PBNP #### [address] [address] Eosinophil, Absolute 0.4 10 3/mcL Normal 0.0-0.7 [facility] ([place]) Comment on above: Performed By: #### G FR, ANEU, CMP, PHOS, TROPHS, ADIFF, TSH, MG, CAION, CBC, PBNP #### [address] [address] Eosinophils/100 WBC (Bld) 4.1 % Normal 0.0-6.0 [facility] ([place]) Comment on above: Performed By: #### G FR, ANEU, CMP, PHOS, TROPHS, ADIFF, TSH, MG, CAION, CBC, PBNP #### [address] [address] Lymphocyte, Absolute 1.2 10 3/mcL Normal 0.9-4.3 [facility] ([place]) Comment on above: Performed By: #### G FR, ANEU, CMP, PHOS, TROPHS, ADIFF, TSH, MG, CAION, CBC, PBNP #### [address] [address] Lymphocytes/100 WBC (Bld) 12.2 % Low 20.0-40.0 [facility] ([place]) Comment on above: Performed By: #### G FR, ANEU, CMP, PHOS, TROPHS, ADIFF, TSH, MG, CAION, CBC, PBNP #### [address] [address] Monocyte, Absolute 0.5 10 3/mcL Normal 0.1-1.4 [facility] ([place]) Comment on above: Performed By: #### G FR, ANEU, CMP, PHOS, TROPHS, ADIFF, TSH, MG, CAION, CBC, PBNP #### [address] [address] Monocytes/100 WBC (Bld) 4.7 % Normal 2.0-13.0 [facility] ([place]) Comment on above: Performed By: #### G FR, ANEU, CMP, PHOS, TROPHS, ADIFF, TSH, MG, CAION, CBC, PBNP #### [address] [address] Neutrophils/100 WBC (Bld) 78.6 % High 50.0-75.0 [facility] ([place]) Comment on above: Performed By: #### G FR, ANEU, CMP, PHOS, TROPHS, ADIFF, TSH, MG, CAION, CBC, PBNP #### [address] [address] .GFRon 12-28-2022 GFR >60 Normal [facility] ([place]) Comment on above: Result Comment: GFR [...] ADIFF, TSH, MG, CAION, CBC, PBNP #### [address] [address] GFR Non- 52 ml/min/1.73sqm Normal [facility] ([place]) Comment on above: Result Comment: GFR [...] ADIFF, TSH, MG, CAION, CBC, PBNP #### [address] [address] .NEUABSon 12-28-2022 Neutrophil, Absolute 7.5 10 3/mcL Normal 2.3-8.1 [facility] ([place]) Comment on above: Performed By: #### G FR, ANEU, CMP, PHOS, TROPHS, ADIFF, TSH, MG, CAION, CBC, PBNP #### [address] [address] BMPon 12-28-2022 BUN/Creatinine Ratio 30.5 ratio High 10.0-22.0 [facility] ([place]) Comment on above: Performed By: #### G FR, ANEU, CMP, PHOS, TROPHS, ADIFF, TSH, MG, CAION, CBC, PBNP #### [address] [address] Calcium [Mass/Vol] 8.8 mg/dL Normal 8.7-10.4 [facility] ([place]) Comment on above: Performed By: #### G FR, ANEU, CMP, PHOS, TROPHS, ADIFF, TSH, MG, CAION, CBC, PBNP #### [address] [address] Chloride [Moles/Vol] 106 mmol/L Normal 98-110 [facility] ([place]) Comment on above: Performed By: #### G FR, ANEU, CMP, PHOS, TROPHS, ADIFF, TSH, MG, CAION, CBC, PBNP #### [address] [address] CO2 [Moles/Vol] 29 mmol/L Normal 22-32 [facility] ([place]) Comment on above: Performed By: #### G FR, ANEU, CMP, PHOS, TROPHS, ADIFF, TSH, MG, CAION, CBC, PBNP #### [address] [address] Creatinine [Mass/Vol] 1.05 mg/dL Normal 0.50-1.20 [facility] ([place]) Comment on above: Performed By: #### G FR, ANEU, CMP, PHOS, TROPHS, ADIFF, TSH, MG, CAION, CBC, PBNP #### [address] [address] Electrolyte Balance 5.0 mEq/L Normal 4.0-15.0 [facility] ([place]) Comment on above: Performed By: #### G FR, ANEU, CMP, PHOS, TROPHS, ADIFF, TSH, MG, CAION, CBC, PBNP #### [address] [address] Glucose [Mass/Vol] 167 mg/dL High 82-115 [facility] ([place]) Comment on above: Performed By: #### G FR, ANEU, CMP, PHOS, TROPHS, ADIFF, TSH, MG, CAION, CBC, PBNP #### [address] [address] Potassium [Moles/Vol] 4.2 mmol/L Normal 3.5-5.0 [facility] ([place]) Comment on above: Result Comment: Spec imen slightly hemolyzed. Performed By: #### G FR, ANEU, CMP, PHOS, TROPHS, ADIFF, TSH, MG, CAION, CBC, PBNP #### [address] [address] Sodium [Moles/Vol] 140 mmol/L Normal 136-145 [facility] ([place]) Comment on above: Performed By: #### G FR, ANEU, CMP, PHOS, TROPHS, ADIFF, TSH, MG, CAION, CBC, PBNP #### [address] [address] Urea nitrogen [Mass/Vol] 32.0 mg/dL High 8.0-22.0 [facility] ([place]) Comment on above: Performed By: #### G FR, ANEU, CMP, PHOS, TROPHS, ADIFF, TSH, MG, CAION, CBC, PBNP #### [address] [address] CBCon 12-28-2022 Erythrocyte distribution width (RBC) [Ratio] 15.9 % High 11.5-15.5 [facility] ([place]) Comment on above: Performed By: #### G FR, ANEU, CMP, PHOS, TROPHS, ADIFF, TSH, MG, CAION, CBC, PBNP #### [address] [address] Hematocrit (Bld) [Volume fraction] 22.6 % Low 34.0-46.0 [facility] ([place]) Comment on above: Performed By: #### G FR, ANEU, CMP, PHOS, TROPHS, ADIFF, TSH, MG, CAION, CBC, PBNP #### [place] [id number] Hgb 7.7 G/dL Low 12.0-16.0 [facility] ([place]) Comment on above: Performed By: #### G FR, ANEU, CMP, PHOS, TROPHS, ADIFF, TSH, MG, CAION, CBC, PBNP #### [place] [id number] MCH (RBC) [Entitic mass] 30.0 pg Normal 27.0-33.0 [facility] ([place]) Comment on above: Performed By: #### G FR, ANEU, CMP, PHOS, TROPHS, ADIFF, TSH, MG, CAION, CBC, PBNP #### [place] [id number] MCHC 34.1 G/dL Normal 32.0-36.0 [facility] ([place]) Comment on above: Performed By: #### G FR, ANEU, CMP, PHOS, TROPHS, ADIFF, TSH, MG, CAION, CBC, PBNP #### [place] [id number] MCV (RBC) [Entitic vol] 87.9 fL Normal 80.0-99.0 A [facility] ([place]) Comment on above: Performed By: #### G FR, ANEU, CMP, PHOS, TROPHS, ADIFF, TSH, MG, CAION, CBC, PBNP #### [place] [id number] Platelet 247 10 3/mcL Normal 150-450 [facility] ([place]) Comment on above: Performed By: #### G FR, ANEU, CMP, PHOS, TROPHS, ADIFF, TSH, MG, CAION, CBC, PBNP #### [place] [id number] Platelet mean volume (Bld) [Entitic vol] 8.8 fL Normal 6.6-10.5 [facility] ([place]) Comment on above: Performed By: #### G FR, ANEU, CMP, PHOS, TROPHS, ADIFF, TSH, MG, CAION, CBC, PBNP #### [place] [address] RBC 2.57 10 6/mcL Low 4.10-5.30 [facility] ([place]) Comment on above: Performed By: #### G FR, ANEU, CMP, PHOS, TROPHS, ADIFF, TSH, MG, CAION, CBC, PBNP #### [place] [address] WBC 9.5 10 3/mcL Normal 4.5-10.8 [facility] ([place]) Comment on above: Performed By: #### G FR, ANEU, CMP, PHOS, TROPHS, ADIFF, TSH, MG, CAION, CBC, PBNP #### [place] [address] CVFLURVon 12-28-2022 FLU A PCR Negative Normal Negative [facility] ([place]) Comment on above: Result Comment: Note s Performed By: #### G FR, ANEU, CMP, PHOS, TROPHS, ADIFF, TSH, MG, CAION, CBC, PBNP #### [place] [address] FLU B PCR Negative Normal Negative [facility] ([place]) Comment on above: Result Comment: Note s Performed By: #### G FR, ANEU, CMP, PHOS, TROPHS, ADIFF, TSH, MG, CAION, CBC, PBNP #### [place] [address] RSV PCR Negative Normal Negative [facility] ([place]) Comment on above: Result Comment: Note s Performed By: #### G FR, ANEU, CMP, PHOS, TROPHS, ADIFF, TSH, MG, CAION, CBC, PBNP #### [place] [address] SARS-CoV-2 (COVID-19) RNA ADE+probe Ql (Unsp spec) Negative Normal Negative [facility] ([place]) Comment on above: Result Comment: Note [...] ADIFF, TSH, MG, CAION, CBC, PBNP #### [place] [address] LABORATORYOrdered By: Arlene Mcdonald on 12-28-2022 Blood Glucose Testing Reason Routine (12/28/22 5:00 PM) [facility] Glucose [Mass/Vol] 176 mg/dL Invalid Interpretation Code 82 - 115 mg/dL [facility] LABORATORYOrdered By: John Austin on 12-28-2022 FLUAV [...] Comment on above: Result Comment: Note s [id number] Interpretive Data: T his test has been [...] Invalid Interpretation Code 82 - 115 mg/dL [facility] Glucose [Mass/Vol] 164 mg/dL Invalid Interpretation Code 82 - 115 mg/dL [facility] LABORATORYOrdered By: SYSTEM SYSTEM on 12-28-2022 Basophils [...] (S/P/Bld) [Vol rate/Area] ml/min/1.73sqm Invalid Interpretation Code [employer] [facility] Comment on above: Interpretive Data: [...] [Vol rate/Area] 52 ml/min/1.73sqm Invalid Interpretation Code [employer] [facility] Comment on above: Interpretive Data: [...] Basophil, Absolute 0.0 10 3/mcL Normal 0.0-0.3 [facility] ([place]) Comment on above: Performed By: #### G FR, ANEU, CMP, PHOS, TROPHS, ADIFF, TSH, MG, CAION, CBC, PBNP #### [address] [address] Basophils/100 WBC (Bld) 0.5 % Normal 0.0-2.5 A [facility] ([place]) Comment on above: Performed By: #### G FR, ANEU, CMP, PHOS, TROPHS, ADIFF, TSH, MG, CAION, CBC, PBNP #### [address] [address] Eosinophil, Absolute 0.3 10 3/mcL Normal 0.0-0.7 [facility] ([place]) Comment on above: Performed By: #### G FR, ANEU, CMP, PHOS, TROPHS, ADIFF, TSH, MG, CAION, CBC, PBNP #### [address] [address] Eosinophils/100 WBC (Bld) 3.9 % Normal 0.0-6.0 [facility] ([place]) Comment on above: Performed By: #### G FR, ANEU, CMP, PHOS, TROPHS, ADIFF, TSH, MG, CAION, CBC, PBNP #### [address] [address] Lymphocyte, Absolute 1.2 10 3/mcL Normal 0.9-4.3 [facility] ([place]) Comment on above: Performed By: #### G FR, ANEU, CMP, PHOS, TROPHS, ADIFF, TSH, MG, CAION, CBC, PBNP #### [address] [address] Lymphocytes/100 WBC (Bld) 13.5 % Low 20.0-40.0 [facility] ([place]) Comment on above: Performed By: #### G FR, ANEU, CMP, PHOS, TROPHS, ADIFF, TSH, MG, CAION, CBC, PBNP #### [address] [address] Monocyte, Absolute 0.5 10 3/mcL Normal 0.1-1.4 [facility] ([place]) Comment on above: Performed By: #### G FR, ANEU, CMP, PHOS, TROPHS, ADIFF, TSH, MG, CAION, CBC, PBNP #### [address] [address] Monocytes/100 WBC (Bld) 6.0 % Normal 2.0-13.0 [facility] ([place]) Comment on above: Performed By: #### G FR, ANEU, CMP, PHOS, TROPHS, ADIFF, TSH, MG, CAION, CBC, PBNP #### [address] [address] Neutrophils/100 WBC (Bld) 76.1 % High 50.0-75.0 [facility] ([place]) Comment on above: Performed By: #### G FR, ANEU, CMP, PHOS, TROPHS, ADIFF, TSH, MG, CAION, CBC, PBNP #### [address] [address] .GFRon 12-27-2022 GFR Non- 54 ml/min/1.73sqm Normal [facility] ([place]) Comment on above: Result Comment: GFR [...] ADIFF, TSH, MG, CAION, CBC, PBNP #### [address] [address] GFR >60 Normal [facility] ([place]) Comment on above: Result Comment: GFR [...] ADIFF, TSH, MG, CAION, CBC, PBNP #### [address] [address] .NEUABSon 12-27-2022 Neutrophil, Absolute 6.7 10 3/mcL Normal 2.3-8.1 [facility] ([place]) Comment on above: Performed By: #### G FR, ANEU, CMP, PHOS, TROPHS, ADIFF, TSH, MG, CAION, CBC, PBNP #### [address] [address] BMPon 12-27-2022 BUN/Creatinine Ratio 31.7 ratio High 10.0-22.0 [facility] ([place]) Comment on above: Performed By: #### G FR, ANEU, CMP, PHOS, TROPHS, ADIFF, TSH, MG, CAION, CBC, PBNP #### [address] [address] Calcium [Mass/Vol] 8.8 mg/dL Normal 8.7-10.4 [facility] ([place]) Comment on above: Performed By: #### G FR, ANEU, CMP, PHOS, TROPHS, ADIFF, TSH, MG, CAION, CBC, PBNP #### [address] [address] Chloride [Moles/Vol] 106 mmol/L Normal 98-110 [facility] ([place]) Comment on above: Performed By: #### G FR, ANEU, CMP, PHOS, TROPHS, ADIFF, TSH, MG, CAION, CBC, PBNP #### [address] [address] CO2 [Moles/Vol] 30 mmol/L Normal 22-32 [facility] ([place]) Comment on above: Performed By: #### G FR, ANEU, CMP, PHOS, TROPHS, ADIFF, TSH, MG, CAION, CBC, PBNP #### [address] [address] Creatinine [Mass/Vol] 1.01 mg/dL Normal 0.50-1.20 [facility] ([place]) Comment on above: Performed By: #### G FR, ANEU, CMP, PHOS, TROPHS, ADIFF, TSH, MG, CAION, CBC, PBNP #### [address] [address] Electrolyte Balance 6.0 mEq/L Normal 4.0-15.0 [facility] ([place]) Comment on above: Performed By: #### G FR, ANEU, CMP, PHOS, TROPHS, ADIFF, TSH, MG, CAION, CBC, PBNP #### [address] [address] Glucose [Mass/Vol] 146 mg/dL High 82-115 [facility] ([place]) Comment on above: Performed By: #### G FR, ANEU, CMP, PHOS, TROPHS, ADIFF, TSH, MG, CAION, CBC, PBNP #### [address] [address] Potassium [Moles/Vol] 3.9 mmol/L Normal 3.5-5.0 [facility] ([place]) Comment on above: Performed By: #### G FR, ANEU, CMP, PHOS, TROPHS, ADIFF, TSH, MG, CAION, CBC, PBNP #### [address] [address] Sodium [Moles/Vol] 142 mmol/L Normal 136-145 [facility] ([place]) Comment on above: Performed By: #### G FR, ANEU, CMP, PHOS, TROPHS, ADIFF, TSH, MG, CAION, CBC, PBNP #### [address] [address] Urea nitrogen [Mass/Vol] 32.0 mg/dL High 8.0-22.0 [facility] ([place]) Comment on above: Performed By: #### G FR, ANEU, CMP, PHOS, TROPHS, ADIFF, TSH, MG, CAION, CBC, PBNP #### [address] [address] CBCon 12-27-2022 Erythrocyte distribution width (RBC) [Ratio] 15.5 % Normal 11.5-15.5 [facility] ([place]) Comment on above: Performed By: #### G FR, ANEU, CMP, PHOS, TROPHS, ADIFF, TSH, MG, CAION, CBC, PBNP #### [address] [address] Hematocrit (Bld) [Volume fraction] 22.0 % Low 34.0-46.0 [facility] ([place]) Comment on above: Performed By: #### G FR, ANEU, CMP, PHOS, TROPHS, ADIFF, TSH, MG, CAION, CBC, PBNP #### [address] [address] Hgb 7.5 G/dL Low 12.0-16.0 [facility] ([place]) Comment on above: Performed By: #### G FR, ANEU, CMP, PHOS, TROPHS, ADIFF, TSH, MG, CAION, CBC, PBNP #### [place] [address] MCH (RBC) [Entitic mass] 29.4 pg Normal 27.0-33.0 [facility] ([place]) Comment on above: Performed By: #### G FR, ANEU, CMP, PHOS, TROPHS, ADIFF, TSH, MG, CAION, CBC, PBNP #### [place] [address] MCHC 34.0 G/dL Normal 32.0-36.0 [facility] ([place]) Comment on above: Performed By: #### G FR, ANEU, CMP, PHOS, TROPHS, ADIFF, TSH, MG, CAION, CBC, PBNP #### [place] [address] MCV (RBC) [Entitic vol] 86.4 fL Normal 80.0-99.0 A [facility] ([place]) Comment on above: Performed By: #### G FR, ANEU, CMP, PHOS, TROPHS, ADIFF, TSH, MG, CAION, CBC, PBNP #### [place] [address] Platelet 210 10 3/mcL Normal 150-450 [facility] ([place]) Comment on above: Performed By: #### G FR, ANEU, CMP, PHOS, TROPHS, ADIFF, TSH, MG, CAION, CBC, PBNP #### [place] [address] Platelet mean volume (Bld) [Entitic vol] 8.2 fL Normal 6.6-10.5 [facility] ([place]) Comment on above: Performed By: #### G FR, ANEU, CMP, PHOS, TROPHS, ADIFF, TSH, MG, CAION, CBC, PBNP #### [place] [address] RBC 2.55 10 6/mcL Low 4.10-5.30 [facility] ([place]) Comment on above: Performed By: #### G FR, ANEU, CMP, PHOS, TROPHS, ADIFF, TSH, MG, CAION, CBC, PBNP #### [address] [address] WBC 8.8 10 3/mcL Normal 4.5-10.8 [facility] ([place]) Comment on above: Performed By: #### G FR, ANEU, CMP, PHOS, TROPHS, ADIFF, TSH, MG, CAION, CBC, PBNP #### [address] [address] LABORATORYOrdered By: SYSTEM SYSTEM on 12-27-2022 Basophils [...] Basophil, Absolute 0.0 10 3/mcL Normal 0.0-0.3 [facility] ([place]) Comment on above: Performed By: #### G FR, ANEU, CMP, PHOS, TROPHS, ADIFF, TSH, MG, CAION, CBC, PBNP #### [address] [address] Basophils/100 WBC (Bld) 0.3 % Normal 0.0-2.5 A [facility] ([place]) Comment on above: Performed By: #### G FR, ANEU, CMP, PHOS, TROPHS, ADIFF, TSH, MG, CAION, CBC, PBNP #### [address] [address] Eosinophil, Absolute 0.3 10 3/mcL Normal 0.0-0.7 [facility] ([place]) Comment on above: Performed By: #### G FR, ANEU, CMP, PHOS, TROPHS, ADIFF, TSH, MG, CAION, CBC, PBNP #### [address] [address] Eosinophils/100 WBC (Bld) 3.4 % Normal 0.0-6.0 [facility] ([place]) Comment on above: Performed By: #### G FR, ANEU, CMP, PHOS, TROPHS, ADIFF, TSH, MG, CAION, CBC, PBNP #### [address] [address] Lymphocyte, Absolute 1.0 10 3/mcL Normal 0.9-4.3 [facility] ([place]) Comment on above: Performed By: #### G FR, ANEU, CMP, PHOS, TROPHS, ADIFF, TSH, MG, CAION, CBC, PBNP #### [address] [address] Lymphocytes/100 WBC (Bld) 12.5 % Low 20.0-40.0 [facility] ([place]) Comment on above: Performed By: #### G FR, ANEU, CMP, PHOS, TROPHS, ADIFF, TSH, MG, CAION, CBC, PBNP #### [address] [address] Monocyte, Absolute 0.4 10 3/mcL Normal 0.1-1.4 [facility] ([place]) Comment on above: Performed By: #### G FR, ANEU, CMP, PHOS, TROPHS, ADIFF, TSH, MG, CAION, CBC, PBNP #### [address] [address] Monocytes/100 WBC (Bld) 5.5 % Normal 2.0-13.0 A [facility] ([place]) Comment on above: Performed By: #### G FR, ANEU, CMP, PHOS, TROPHS, ADIFF, TSH, MG, CAION, CBC, PBNP #### [address] [id number] Neutrophils/100 WBC (Bld) 78.3 % High 50.0-75.0 [facility] ([place]) Comment on above: Performed By: #### G FR, ANEU, CMP, PHOS, TROPHS, ADIFF, TSH, MG, CAION, CBC, PBNP #### [address] [address] .GFRon 12-26-2022 GFR Non- 45 ml/min/1.73sqm Normal [facility] ([place]) Comment on above: Result Comment: GFR [...] ADIFF, TSH, MG, CAION, CBC, PBNP #### [address] [address] GFR 54 ml/min/1.73sqm Normal [facility] ([place]) Comment on above: Result Comment: GFR [...] ADIFF, TSH, MG, CAION, CBC, PBNP #### [address] [address] .NEUABSon 12-26-2022 Neutrophil, Absolute 6.1 10 3/mcL Normal 2.3-8.1 [facility] ([place]) Comment on above: Performed By: #### G FR, ANEU, CMP, PHOS, TROPHS, ADIFF, TSH, MG, CAION, CBC, PBNP #### [address] [address] BMPon 12-26-2022 BUN/Creatinine Ratio 29.4 ratio High 10.0-22.0 [facility] ([place]) Comment on above: Performed By: #### G FR, ANEU, CMP, PHOS, TROPHS, ADIFF, TSH, MG, CAION, CBC, PBNP #### [address] [address] Calcium [Mass/Vol] 8.5 mg/dL Low 8.7-10.4 [facility] ([place]) Comment on above: Performed By: #### G FR, ANEU, CMP, PHOS, TROPHS, ADIFF, TSH, MG, CAION, CBC, PBNP #### [address] [address] Chloride [Moles/Vol] 106 mmol/L Normal 98-110 [facility] ([place]) Comment on above: Performed By: #### G FR, ANEU, CMP, PHOS, TROPHS, ADIFF, TSH, MG, CAION, CBC, PBNP #### [address] [address] CO2 [Moles/Vol] 28 mmol/L Normal 22-32 [facility] ([place]) Comment on above: Performed By: #### G FR, ANEU, CMP, PHOS, TROPHS, ADIFF, TSH, MG, CAION, CBC, PBNP #### [address] [address] Creatinine [Mass/Vol] 1.19 mg/dL Normal 0.50-1.20 [facility] ([place]) Comment on above: Performed By: #### G FR, ANEU, CMP, PHOS, TROPHS, ADIFF, TSH, MG, CAION, CBC, PBNP #### [address] [address] Electrolyte Balance 7.0 mEq/L Normal 4.0-15.0 [facility] ([place]) Comment on above: Performed By: #### G FR, ANEU, CMP, PHOS, TROPHS, ADIFF, TSH, MG, CAION, CBC, PBNP #### [address] [address] Glucose [Mass/Vol] 160 mg/dL High 82-115 [facility] ([place]) Comment on above: Performed By: #### G FR, ANEU, CMP, PHOS, TROPHS, ADIFF, TSH, MG, CAION, CBC, PBNP #### [address] [address] Potassium [Moles/Vol] 3.9 mmol/L Normal 3.5-5.0 [facility] ([place]) Comment on above: Performed By: #### G FR, ANEU, CMP, PHOS, TROPHS, ADIFF, TSH, MG, CAION, CBC, PBNP #### [address] [address] Sodium [Moles/Vol] 141 mmol/L Normal 136-145 [facility] ([place] Comment on above: Performed By: #### G FR, ANEU, CMP, PHOS, TROPHS, ADIFF, TSH, MG, CAION, CBC, PBNP #### [address] [address] Urea nitrogen [Mass/Vol] 35.0 mg/dL High 8.0-22.0 [facility] ([place]) Comment on above: Performed By: #### G FR, ANEU, CMP, PHOS, TROPHS, ADIFF, TSH, MG, CAION, CBC, PBNP #### [place] [id number] CBCon 12-26-2022 Erythrocyte distribution width (RBC) [Ratio] 15.7 % High 11.5-15.5 [facility] ([place]) Comment on above: Performed By: #### G FR, ANEU, CMP, PHOS, TROPHS, ADIFF, TSH, MG, CAION, CBC, PBNP #### [place] [address] Hematocrit (Bld) [Volume fraction] 23.3 % Low 34.0-46.0 [facility] ([place]) Comment on above: Performed By: #### G FR, ANEU, CMP, PHOS, TROPHS, ADIFF, TSH, MG, CAION, CBC, PBNP #### [place] [address] Hgb 7.8 G/dL Low 12.0-16.0 [facility] ([place]) Comment on above: Performed By: #### G FR, ANEU, CMP, PHOS, TROPHS, ADIFF, TSH, MG, CAION, CBC, PBNP #### [place] [address] MCH (RBC) [Entitic mass] 29.0 pg Normal 27.0-33.0 [facility] ([place]) Comment on above: Performed By: #### G FR, ANEU, CMP, PHOS, TROPHS, ADIFF, TSH, MG, CAION, CBC, PBNP #### [place] [phone] MCHC 33.6 G/dL Normal 32.0-36.0 [facility] ([place]) Comment on above: Performed By: #### G FR, ANEU, CMP, PHOS, TROPHS, ADIFF, TSH, MG, CAION, CBC, PBNP #### [place] [address] MCV (RBC) [Entitic vol] 86.1 fL Normal 80.0-99.0 [facility] ([place]) Comment on above: Performed By: #### G FR, ANEU, CMP, PHOS, TROPHS, ADIFF, TSH, MG, CAION, CBC, PBNP #### [place] [phone] Platelet 182 10 3/mcL Normal 150-450 [facility] ([place]) Comment on above: Performed By: #### G FR, ANEU, CMP, PHOS, TROPHS, ADIFF, TSH, MG, CAION, CBC, PBNP #### [place] [address] Platelet mean volume (Bld) [Entitic vol] 8.1 fL Normal 6.6-10.5 [facility] ([place]) Comment on above: Performed By: #### G FR, ANEU, CMP, PHOS, TROPHS, ADIFF, TSH, MG, CAION, CBC, PBNP #### [place] [address] RBC 2.70 10 6/mcL Low 4.10-5.30 [facility] ([place]) Comment on above: Performed By: #### G FR, ANEU, CMP, PHOS, TROPHS, ADIFF, TSH, MG, CAION, CBC, PBNP #### [place] [address] WBC 7.9 10 3/mcL Normal 4.5-10.8 [facility] ([place]) Comment on above: Performed By: #### G FR, ANEU, CMP, PHOS, TROPHS, ADIFF, TSH, MG, CAION, CBC, PBNP #### [place] [address] Nora 12-26-2022 Ferritin [Mass/Vol] 88.2 ng/mL Normal 8.0-252.0 [facility] ([place]) Comment on above: Order Comment: Add o n lab Performed By: #### G FR, ANEU, CMP, PHOS, TROPHS, ADIFF, TSH, MG, CAION, CBC, PBNP #### [place] [address] FESon 12-26-2022 Iron [Mass/Vol] 23 ug/dL Low 50-170 [facility] ([place]) Comment on above: Order Comment: Add o n lab Performed By: #### G FR, ANEU, CMP, PHOS, TROPHS, ADIFF, TSH, MG, CAION, CBC, PBNP #### [facility] [address] [place] [id number] Iron Sat 9 % Normal [facility] ([place]) Comment on above: Order Comment: Add o n lab Performed By: #### G FR, ANEU, CMP, PHOS, TROPHS, ADIFF, TSH, MG, CAION, CBC, PBNP #### [facility] [address] [place] [address] TIBC 244 mcg/dL Low 250-500 [facility] ([place]) Comment on above: Order Comment: Add o n lab Performed By: #### G FR, ANEU, CMP, PHOS, TROPHS, ADIFF, TSH, MG, CAION, CBC, PBNP #### [facility] [address] [place] [address] LABORATORYOrdered By: June Wetzel on 12-26-2022 Blood Glucose Testing Reason Routine (12/26/22 9:07 PM) [facility] Blood Glucose Testing Reason Routine (12/26/22 4:24 PM) [facility] LABORATORYOrdered By: SYSTEM SYSTEM on 12-26-2022 Basophils [...] [Vol rate/Area] 54 ml/min/1.73sqm Invalid Interpretation Code [employer] [facility] Comment on above: Interpretive Data: [...] [Vol rate/Area] 45 ml/min/1.73sqm Invalid Interpretation Code [employer] [facility] Comment on above: Interpretive Data: [...] Basophil, Absolute 0.0 10 3/mcL Normal 0.0-0.3 [facility] ([place]) Comment on above: Performed By: #### G FR, ANEU, CMP, PHOS, TROPHS, ADIFF, TSH, MG, CAION, CBC, PBNP #### [address] [address] Basophils/100 WBC (Bld) 0.3 % Normal 0.0-2.5 A [facility] ([place]) Comment on above: Performed By: #### G FR, ANEU, CMP, PHOS, TROPHS, ADIFF, TSH, MG, CAION, CBC, PBNP #### [address] [address] Eosinophil, Absolute 0.2 10 3/mcL Normal 0.0-0.7 [facility] ([place]) Comment on above: Performed By: #### G FR, ANEU, CMP, PHOS, TROPHS, ADIFF, TSH, MG, CAION, CBC, PBNP #### [address] [address] Eosinophils/100 WBC (Bld) 2.0 % Normal 0.0-6.0 [facility] ([place]) Comment on above: Performed By: #### G FR, ANEU, CMP, PHOS, TROPHS, ADIFF, TSH, MG, CAION, CBC, PBNP #### [address] [address] Lymphocyte, Absolute 1.3 10 3/mcL Normal 0.9-4.3 [facility] ([place]) Comment on above: Performed By: #### G FR, ANEU, CMP, PHOS, TROPHS, ADIFF, TSH, MG, CAION, CBC, PBNP #### [address] [address] Lymphocytes/100 WBC (Bld) 11.6 % Low 20.0-40.0 [facility] ([place]) Comment on above: Performed By: #### G FR, ANEU, CMP, PHOS, TROPHS, ADIFF, TSH, MG, CAION, CBC, PBNP #### [address] [address] Monocyte, Absolute 0.7 10 3/mcL Normal 0.1-1.4 [facility] ([place]) Comment on above: Performed By: #### G FR, ANEU, CMP, PHOS, TROPHS, ADIFF, TSH, MG, CAION, CBC, PBNP #### [address] [address] Monocytes/100 WBC (Bld) 6.8 % Normal 2.0-13.0 [facility] ([place]) Comment on above: Performed By: #### G FR, ANEU, CMP, PHOS, TROPHS, ADIFF, TSH, MG, CAION, CBC, PBNP #### [address] [address] Neutrophils/100 WBC (Bld) 79.3 % High 50.0-75.0 [facility] ([place]) Comment on above: Performed By: #### G FR, ANEU, CMP, PHOS, TROPHS, ADIFF, TSH, MG, CAION, CBC, PBNP #### [address] [address] .GFRon 12-25-2022 GFR 46 ml/min/1.73sqm Normal [facility] ([place]) Comment on above: Result Comment: GFR [...] ADIFF, TSH, MG, CAION, CBC, PBNP #### [address] [address] GFR Non- 38 ml/min/1.73sqm Normal [facility] ([place]) Comment on above: Result Comment: GFR [...] ADIFF, TSH, MG, CAION, CBC, PBNP #### [address] [address] .NEUABSon 12-25-2022 Neutrophil, Absolute 8.7 10 3/mcL High 2.3-8.1 [facility] ([place]) Comment on above: Performed By: #### G FR, ANEU, CMP, PHOS, TROPHS, ADIFF, TSH, MG, CAION, CBC, PBNP #### [address] [address] BGon 12-25-2022 Barometric Pressure 733 mmHg Normal [facility] ([place]) Comment on above: Performed By: #### G FR, ANEU, CMP, PHOS, TROPHS, ADIFF, TSH, MG, CAION, CBC, PBNP #### [address] [address] Base excess Calc (Bld) [Moles/Vol] 2.2 mmol/L Normal [facility] ([place]) Comment on above: Performed By: #### G FR, ANEU, CMP, PHOS, TROPHS, ADIFF, TSH, MG, CAION, CBC, PBNP #### [place] [phone] CO2 [Moles/Vol] 28.3 mmol/L Normal 22.0-30.0 [facility] ([place]) Comment on above: Performed By: #### G FR, ANEU, CMP, PHOS, TROPHS, ADIFF, TSH, MG, CAION, CBC, PBNP #### [place] [phone] HCO3 (Bld) [Moles/Vol] 26.9 mmol/L Normal 21.0-29.0 A [facility] ([place]) Comment on above: Performed By: #### G FR, ANEU, CMP, PHOS, TROPHS, ADIFF, TSH, MG, CAION, CBC, PBNP #### [place] [phone] Oxygen (Bld) [Partial pressure] 68.6 mm[Hg] Low 74.0-108.0 [facility] ([place]) Comment on above: Performed By: #### G FR, ANEU, CMP, PHOS, TROPHS, ADIFF, TSH, MG, CAION, CBC, PBNP #### [place] [phone] Oxygen saturation in Blood 94.0 % Normal 92.0-96.0 [facility] ([place]) Comment on above: Performed By: #### G FR, ANEU, CMP, PHOS, TROPHS, ADIFF, TSH, MG, CAION, CBC, PBNP #### [address] [address] pCO2 42.5 mmHg Normal 32.0-46.0 [facility] ([place]) Comment on above: Performed By: #### G FR, ANEU, CMP, PHOS, TROPHS, ADIFF, TSH, MG, CAION, CBC, PBNP #### [address] [address] pH (Bld) 7.420 [pH] Normal 7.380-7.460 [facility] ([place]) Comment on above: Performed By: #### G FR, ANEU, CMP, PHOS, TROPHS, ADIFF, TSH, MG, CAION, CBC, PBNP #### [address] [address] BMPon 12-25-2022 BUN/Creatinine Ratio 27.0 ratio High 10.0-22.0 [facility] ([place]) Comment on above: Performed By: #### G FR, ANEU, CMP, PHOS, TROPHS, ADIFF, TSH, MG, CAION, CBC, PBNP #### [address] [address] Calcium [Mass/Vol] 8.6 mg/dL Low 8.7-10.4 [facility] ([place]) Comment on above: Performed By: #### G FR, ANEU, CMP, PHOS, TROPHS, ADIFF, TSH, MG, CAION, CBC, PBNP #### [address] [address] Chloride [Moles/Vol] 104 mmol/L Normal 98-110 [facility] ([place]) Comment on above: Performed By: #### G FR, ANEU, CMP, PHOS, TROPHS, ADIFF, TSH, MG, CAION, CBC, PBNP #### [address] [address] CO2 [Moles/Vol] 27 mmol/L Normal 22-32 [facility] ([place]) Comment on above: Performed By: #### G FR, ANEU, CMP, PHOS, TROPHS, ADIFF, TSH, MG, CAION, CBC, PBNP #### [address] [address] Creatinine [Mass/Vol] 1.37 mg/dL High 0.50-1.20 [facility] ([place]) Comment on above: Performed By: #### G FR, ANEU, CMP, PHOS, TROPHS, ADIFF, TSH, MG, CAION, CBC, PBNP #### [place] [address] Electrolyte Balance 7.0 mEq/L Normal 4.0-15.0 [facility] ([place]) Comment on above: Performed By: #### G FR, ANEU, CMP, PHOS, TROPHS, ADIFF, TSH, MG, CAION, CBC, PBNP #### [place] [address] Glucose [Mass/Vol] 179 mg/dL High 82-115 [facility] ([place]) Comment on above: Performed By: #### G FR, ANEU, CMP, PHOS, TROPHS, ADIFF, TSH, MG, CAION, CBC, PBNP #### [place] [address] Potassium [Moles/Vol] 4.3 mmol/L Normal 3.5-5.0 [facility] ([place]) Comment on above: Performed By: #### G FR, ANEU, CMP, PHOS, TROPHS, ADIFF, TSH, MG, CAION, CBC, PBNP #### [place] [address] Sodium [Moles/Vol] 138 mmol/L Normal 136-145 [facility] ([place]) Comment on above: Performed By: #### G FR, ANEU, CMP, PHOS, TROPHS, ADIFF, TSH, MG, CAION, CBC, PBNP #### [place] [phone] Urea nitrogen [Mass/Vol] 37.0 mg/dL High 8.0-22.0 [facility] ([place]) Comment on above: Performed By: #### G FR, ANEU, CMP, PHOS, TROPHS, ADIFF, TSH, MG, CAION, CBC, PBNP #### [address] [address] CBCon 12-25-2022 Erythrocyte distribution width (RBC) [Ratio] 16.0 % High 11.5-15.5 [facility] ([place]) Comment on above: Performed By: #### G FR, ANEU, CMP, PHOS, TROPHS, ADIFF, TSH, MG, CAION, CBC, PBNP #### [place] [address] Hematocrit (Bld) [Volume fraction] 20.8 % Low 34.0-46.0 [facility] ([place]) Comment on above: Performed By: #### G FR, ANEU, CMP, PHOS, TROPHS, ADIFF, TSH, MG, CAION, CBC, PBNP #### [place] [address] Hgb 7.0 G/dL Low 12.0-16.0 [facility] ([place]) Comment on above: Performed By: #### G FR, ANEU, CMP, PHOS, TROPHS, ADIFF, TSH, MG, CAION, CBC, PBNP #### [place] [address] MCH (RBC) [Entitic mass] 28.8 pg Normal 27.0-33.0 [facility] ([place]) Comment on above: Performed By: #### G FR, ANEU, CMP, PHOS, TROPHS, ADIFF, TSH, MG, CAION, CBC, PBNP #### [place] [address] MCHC 33.8 G/dL Normal 32.0-36.0 [facility] ([place]) Comment on above: Performed By: #### G FR, ANEU, CMP, PHOS, TROPHS, ADIFF, TSH, MG, CAION, CBC, PBNP #### [place] [address] MCV (RBC) [Entitic vol] 85.4 fL Normal 80.0-99.0 [facility] ([place]) Comment on above: Performed By: #### G FR, ANEU, CMP, PHOS, TROPHS, ADIFF, TSH, MG, CAION, CBC, PBNP #### [address] [address] Platelet 222 10 3/mcL Normal 150-450 [facility] ([place]) Comment on above: Performed By: #### G FR, ANEU, CMP, PHOS, TROPHS, ADIFF, TSH, MG, CAION, CBC, PBNP #### [address] [address] Platelet mean volume (Bld) [Entitic vol] 8.3 fL Normal 6.6-10.5 [facility] ([place]) Comment on above: Performed By: #### G FR, ANEU, CMP, PHOS, TROPHS, ADIFF, TSH, MG, CAION, CBC, PBNP #### [place] [phone] RBC 2.44 10 6/mcL Low 4.10-5.30 [facility] ([place]) Comment on above: Performed By: #### G FR, ANEU, CMP, PHOS, TROPHS, ADIFF, TSH, MG, CAION, CBC, PBNP #### [place] [phone] WBC 11.0 10 3/mcL High 4.5-10.8 [facility] ([place]) Comment on above: Performed By: #### G FR, ANEU, CMP, PHOS, TROPHS, ADIFF, TSH, MG, CAION, CBC, PBNP #### [place] [address] LABORATORYOrdered By: Susu Alberto on 12-25-2022 Natriuretic [...] B (Bld) [Mass/Vol] 1675 pg/mL High 0-900 [facility] ([place]) Comment on above: Order Comment: add o n lab Result Comment: NT-p roBNP results of less than 300 pg/mL effectively rules out acute congestive heart failure with 99% negative predictive value. Performed By: #### G FR, ANEU, CMP, PHOS, TROPHS, ADIFF, TSH, MG, CAION, CBC, PBNP #### [address] [address] RBC (Product)on 12-25-2022 RBC Product Ready RBC Ready for Pickup Normal [facility] ([place]) Comment on above: Performed By: #### G FR, ANEU, CMP, PHOS, TROPHS, ADIFF, TSH, MG, CAION, CBC, PBNP #### [address] [address] .Auto Diffon 12-24-2022 Basophil, Absolute 0.0 10 3/mcL Normal 0.0-0.3 [facility] ([place]) Comment on above: Performed By: #### G FR, ANEU, CMP, PHOS, TROPHS, ADIFF, TSH, MG, CAION, CBC, PBNP #### [address] [address] Basophils/100 WBC (Bld) 0.2 % Normal 0.0-2.5 A [facility] ([place]) Comment on above: Performed By: #### G FR, ANEU, CMP, PHOS, TROPHS, ADIFF, TSH, MG, CAION, CBC, PBNP #### [address] [address] Eosinophil, Absolute 0.0 10 3/mcL Normal 0.0-0.7 [facility] ([place]) Comment on above: Performed By: #### G FR, ANEU, CMP, PHOS, TROPHS, ADIFF, TSH, MG, CAION, CBC, PBNP #### [address] [address] Eosinophils/100 WBC (Bld) 0.1 % Normal 0.0-6.0 [facility] ([place]) Comment on above: Performed By: #### G FR, ANEU, CMP, PHOS, TROPHS, ADIFF, TSH, MG, CAION, CBC, PBNP #### [address] [address] Lymphocyte, Absolute 1.3 10 3/mcL Normal 0.9-4.3 [facility] ([place]) Comment on above: Performed By: #### G FR, ANEU, CMP, PHOS, TROPHS, ADIFF, TSH, MG, CAION, CBC, PBNP #### [address] [address] Lymphocytes/100 WBC (Bld) 10.8 % Low 20.0-40.0 [facility] ([place]) Comment on above: Performed By: #### G FR, ANEU, CMP, PHOS, TROPHS, ADIFF, TSH, MG, CAION, CBC, PBNP #### [address] [address] Monocyte, Absolute 0.7 10 3/mcL Normal 0.1-1.4 [facility] ([place]) Comment on above: Performed By: #### G FR, ANEU, CMP, PHOS, TROPHS, ADIFF, TSH, MG, CAION, CBC, PBNP #### [address] [address] Monocytes/100 WBC (Bld) 6.2 % Normal 2.0-13.0 A [facility] ([place]) Comment on above: Performed By: #### G FR, ANEU, CMP, PHOS, TROPHS, ADIFF, TSH, MG, CAION, CBC, PBNP #### [address] [address] Neutrophils/100 WBC (Bld) 82.7 % High 50.0-75.0 [facility] ([place]) Comment on above: Performed By: #### G FR, ANEU, CMP, PHOS, TROPHS, ADIFF, TSH, MG, CAION, CBC, PBNP #### [address] [address] .GFRon 12-24-2022 GFR 51 ml/min/1.73sqm Normal [facility] ([place]) Comment on above: Result Comment: GFR [...] ADIFF, TSH, MG, CAION, CBC, PBNP #### [address] [address] GFR Non- 42 ml/min/1.73sqm Normal [facility] ([place]) Comment on above: Result Comment: GFR [...] ADIFF, TSH, MG, CAION, CBC, PBNP #### [address] [address] .NEUABSon 12-24-2022 Neutrophil, Absolute 10.0 10 3/mcL High 2.3-8.1 A [facility] ([place]) Comment on above: Performed By: #### G FR, ANEU, CMP, PHOS, TROPHS, ADIFF, TSH, MG, CAION, CBC, PBNP #### [address] [address] BMPon 12-24-2022 BUN/Creatinine Ratio 24.8 ratio High 10.0-22.0 [facility] ([place]) Comment on above: Performed By: #### G FR, ANEU, CMP, PHOS, TROPHS, ADIFF, TSH, MG, CAION, CBC, PBNP #### [address] [address] Calcium [Mass/Vol] 8.6 mg/dL Low 8.7-10.4 [facility] ([place]) Comment on above: Performed By: #### G FR, ANEU, CMP, PHOS, TROPHS, ADIFF, TSH, MG, CAION, CBC, PBNP #### [address] [address] Chloride [Moles/Vol] 106 mmol/L Normal 98-110 [facility] ([place]) Comment on above: Performed By: #### G FR, ANEU, CMP, PHOS, TROPHS, ADIFF, TSH, MG, CAION, CBC, PBNP #### [address] [address] CO2 [Moles/Vol] 27 mmol/L Normal 22-32 [facility] ([place]) Comment on above: Performed By: #### G FR, ANEU, CMP, PHOS, TROPHS, ADIFF, TSH, MG, CAION, CBC, PBNP #### [address] [address] Creatinine [Mass/Vol] 1.25 mg/dL High 0.50-1.20 [facility] ([place]) Comment on above: Performed By: #### G FR, ANEU, CMP, PHOS, TROPHS, ADIFF, TSH, MG, CAION, CBC, PBNP #### [address] [address] Electrolyte Balance 6.0 mEq/L Normal 4.0-15.0 [facility] ([place]) Comment on above: Performed By: #### G FR, ANEU, CMP, PHOS, TROPHS, ADIFF, TSH, MG, CAION, CBC, PBNP #### [address] [address] Glucose [Mass/Vol] 143 mg/dL High 82-115 [facility] ([place]) Comment on above: Performed By: #### G FR, ANEU, CMP, PHOS, TROPHS, ADIFF, TSH, MG, CAION, CBC, PBNP #### [address] [address] Potassium [Moles/Vol] 4.6 mmol/L Normal 3.5-5.0 [facility] ([place]) Comment on above: Result Comment: Spec imen slightly hemolyzed. Performed By: #### G FR, ANEU, CMP, PHOS, TROPHS, ADIFF, TSH, MG, CAION, CBC, PBNP #### [address] [address] Sodium [Moles/Vol] 139 mmol/L Normal 136-145 [facility] ([place]) Comment on above: Performed By: #### G FR, ANEU, CMP, PHOS, TROPHS, ADIFF, TSH, MG, CAION, CBC, PBNP #### [address] [address] Urea nitrogen [Mass/Vol] 31.0 mg/dL High 8.0-22.0 [facility] ([place]) Comment on above: Performed By: #### G FR, ANEU, CMP, PHOS, TROPHS, ADIFF, TSH, MG, CAION, CBC, PBNP #### [place] [address] CBCon 12-24-2022 Erythrocyte distribution width (RBC) [Ratio] 15.7 % High 11.5-15.5 [facility] ([place]) Comment on above: Performed By: #### G FR, ANEU, CMP, PHOS, TROPHS, ADIFF, TSH, MG, CAION, CBC, PBNP #### [place] [address] Hematocrit (Bld) [Volume fraction] 23.2 % Low 34.0-46.0 [facility] ([place]) Comment on above: Performed By: #### G FR, ANEU, CMP, PHOS, TROPHS, ADIFF, TSH, MG, CAION, CBC, PBNP #### [place] [address] Hgb 7.5 G/dL Low 12.0-16.0 [facility] ([place]) Comment on above: Performed By: #### G FR, ANEU, CMP, PHOS, TROPHS, ADIFF, TSH, MG, CAION, CBC, PBNP #### [place] [address] MCH (RBC) [Entitic mass] 27.6 pg Normal 27.0-33.0 [facility] ([place]) Comment on above: Performed By: #### G FR, ANEU, CMP, PHOS, TROPHS, ADIFF, TSH, MG, CAION, CBC, PBNP #### [place] [address] MCHC 32.4 G/dL Normal 32.0-36.0 [facility] ([place]) Comment on above: Performed By: #### G FR, ANEU, CMP, PHOS, TROPHS, ADIFF, TSH, MG, CAION, CBC, PBNP #### [place] [id number] MCV (RBC) [Entitic vol] 85.2 fL Normal 80.0-99.0 A [facility] ([place]) Comment on above: Performed By: #### G FR, ANEU, CMP, PHOS, TROPHS, ADIFF, TSH, MG, CAION, CBC, PBNP #### [place] [address] Platelet 252 10 3/mcL Normal 150-450 [facility] ([place]) Comment on above: Performed By: #### G FR, ANEU, CMP, PHOS, TROPHS, ADIFF, TSH, MG, CAION, CBC, PBNP #### [place] [address] Platelet mean volume (Bld) [Entitic vol] 8.1 fL Normal 6.6-10.5 [facility] ([place]) Comment on above: Performed By: #### G FR, ANEU, CMP, PHOS, TROPHS, ADIFF, TSH, MG, CAION, CBC, PBNP #### [place] [address] RBC 2.73 10 6/mcL Low 4.10-5.30 [facility] ([place]) Comment on above: Performed By: #### G FR, ANEU, CMP, PHOS, TROPHS, ADIFF, TSH, MG, CAION, CBC, PBNP #### [place] [address] WBC 12.1 10 3/mcL High 4.5-10.8 [facility] ([place]) Comment on above: Performed By: #### G FR, ANEU, CMP, PHOS, TROPHS, ADIFF, TSH, MG, CAION, CBC, PBNP #### [place] [address] HHon 12-24-2022 Hematocrit (Bld) [Volume fraction] 21.1 % Low 34.0-46.0 [facility] ([place]) Comment on above: Performed By: #### G FR, ANEU, CMP, PHOS, TROPHS, ADIFF, TSH, MG, CAION, CBC, PBNP #### [address] [address] Hgb 7.0 G/dL Low 12.0-16.0 [facility] ([place]) Comment on above: Performed By: #### G FR, ANEU, CMP, PHOS, TROPHS, ADIFF, TSH, MG, CAION, CBC, PBNP #### [place] [address] Hematocrit (Bld) [Volume fraction] 21.0 % Low 34.0-46.0 [facility] ([place]) Comment on above: Performed By: #### G FR, ANEU, CMP, PHOS, TROPHS, ADIFF, TSH, MG, CAION, CBC, PBNP #### [place] [address] Hgb 7.1 G/dL Low 12.0-16.0 [facility] ([place]) Comment on above: Performed By: #### G FR, ANEU, CMP, PHOS, TROPHS, ADIFF, TSH, MG, CAION, CBC, PBNP #### [place] [id number] XR CHEST 2 VIEWSon 3 XR CHEST [...] 12/24/2022 10:54:45 AM Ordering Provider: JANI Robertson [facility] ([place]) XR FLUORO 1-2 HRS TECH TIMEo [...] 12/24/2022 8:15:41 AM Ordering Provider: JONH Robertson [facility] ([place]) .Auto Diffon 12-23-2022 Basophil, Absolute 0.0 10 3/mcL Normal 0.0-0.3 [facility] ([place]) Comment on above: Performed By: #### G FR, ANEU, CMP, PHOS, TROPHS, ADIFF, TSH, MG, CAION, CBC, PBNP #### [address] [address] Basophils/100 WBC (Bld) 0.3 % Normal 0.0-2.5 A [facility] ([place]) Comment on above: Performed By: #### G FR, ANEU, CMP, PHOS, TROPHS, ADIFF, TSH, MG, CAION, CBC, PBNP #### [address] [address] Eosinophil, Absolute 0.0 10 3/mcL Normal 0.0-0.7 [facility] ([place]) Comment on above: Performed By: #### G FR, ANEU, CMP, PHOS, TROPHS, ADIFF, TSH, MG, CAION, CBC, PBNP #### [address] [address] Eosinophils/100 WBC (Bld) 0.5 % Normal 0.0-6.0 [facility] ([place]) Comment on above: Performed By: #### G FR, ANEU, CMP, PHOS, TROPHS, ADIFF, TSH, MG, CAION, CBC, PBNP #### [address] [address] Lymphocyte, Absolute 1.0 10 3/mcL Normal 0.9-4.3 [facility] ([place]) Comment on above: Performed By: #### G FR, ANEU, CMP, PHOS, TROPHS, ADIFF, TSH, MG, CAION, CBC, PBNP #### [address] [address] Lymphocytes/100 WBC (Bld) 10.9 % Low 20.0-40.0 [facility] ([place]) Comment on above: Performed By: #### G FR, ANEU, CMP, PHOS, TROPHS, ADIFF, TSH, MG, CAION, CBC, PBNP #### [address] [address] Monocyte, Absolute 0.6 10 3/mcL Normal 0.1-1.4 [facility] ([place]) Comment on above: Performed By: #### G FR, ANEU, CMP, PHOS, TROPHS, ADIFF, TSH, MG, CAION, CBC, PBNP #### [address] [address] Monocytes/100 WBC (Bld) 7.2 % Normal 2.0-13.0 A [facility] ([place]) Comment on above: Performed By: #### G FR, ANEU, CMP, PHOS, TROPHS, ADIFF, TSH, MG, CAION, CBC, PBNP #### [address] [address] Neutrophils/100 WBC (Bld) 81.1 % High 50.0-75.0 [facility] ([place]) Comment on above: Performed By: #### G FR, ANEU, CMP, PHOS, TROPHS, ADIFF, TSH, MG, CAION, CBC, PBNP #### [address] [address] .GFRon 12-23-2022 GFR >60 Normal [facility] ([place]) Comment on above: Result Comment: GFR [...] ADIFF, TSH, MG, CAION, CBC, PBNP #### [address] [address] GFR Non- >60 Normal [facility] ([place]) Comment on above: Result Comment: GFR [...] ADIFF, TSH, MG, CAION, CBC, PBNP #### [address] [address] .NEUABSon 12-23-2022 Neutrophil, Absolute 7.3 10 3/mcL Normal 2.3-8.1 [facility] ([place]) Comment on above: Performed By: #### G FR, ANEU, CMP, PHOS, TROPHS, ADIFF, TSH, MG, CAION, CBC, PBNP #### [address] [address] ABO/Rh (Gel)on 12-23-2022 ABO/Rh Interp Positive Invalid Interpretation Code [facility] ([place]) Comment on above: Performed By: #### G FR, ANEU, CMP, PHOS, TROPHS, ADIFF, TSH, MG, CAION, CBC, PBNP #### [address] [address] ABS (Gel)on 12-23-2022 ABSC Interp (Gel) Negative Normal [facility] ([place]) Comment on above: Performed By: #### G FR, ANEU, CMP, PHOS, TROPHS, ADIFF, TSH, MG, CAION, CBC, PBNP #### [address] [address] BMPon 12-23-2022 BUN/Creatinine Ratio 27.7 ratio High 10.0-22.0 [facility] ([place]) Comment on above: Performed By: #### G FR, ANEU, CMP, PHOS, TROPHS, ADIFF, TSH, MG, CAION, CBC, PBNP #### [address] [address] Calcium [Mass/Vol] 9.1 mg/dL Normal 8.7-10.4 [facility] ([place]) Comment on above: Performed By: #### G FR, ANEU, CMP, PHOS, TROPHS, ADIFF, TSH, MG, CAION, CBC, PBNP #### [address] [address] Chloride [Moles/Vol] 110 mmol/L Normal 98-110 [facility] ([place]) Comment on above: Performed By: #### G FR, ANEU, CMP, PHOS, TROPHS, ADIFF, TSH, MG, CAION, CBC, PBNP #### [address] [address] CO2 [Moles/Vol] 26 mmol/L Normal 22-32 [facility] ([place]) Comment on above: Performed By: #### G FR, ANEU, CMP, PHOS, TROPHS, ADIFF, TSH, MG, CAION, CBC, PBNP #### [address] [address] Creatinine [Mass/Vol] 0.83 mg/dL Normal 0.50-1.20 [facility] ([place]) Comment on above: Performed By: #### G FR, ANEU, CMP, PHOS, TROPHS, ADIFF, TSH, MG, CAION, CBC, PBNP #### [address] [address] Electrolyte Balance 7.0 mEq/L Normal 4.0-15.0 [facility] ([place]) Comment on above: Performed By: #### G FR, ANEU, CMP, PHOS, TROPHS, ADIFF, TSH, MG, CAION, CBC, PBNP #### [address] [address] Glucose [Mass/Vol] 171 mg/dL High 82-115 [facility] ([place]) Comment on above: Performed By: #### G FR, ANEU, CMP, PHOS, TROPHS, ADIFF, TSH, MG, CAION, CBC, PBNP #### [address] [address] Potassium [Moles/Vol] 4.2 mmol/L Normal 3.5-5.0 [facility] ([place]) Comment on above: Performed By: #### G FR, ANEU, CMP, PHOS, TROPHS, ADIFF, TSH, MG, CAION, CBC, PBNP #### [address] [address] Sodium [Moles/Vol] 143 mmol/L Normal 136-145 [facility] ([place] Comment on above: Performed By: #### G FR, ANEU, CMP, PHOS, TROPHS, ADIFF, TSH, MG, CAION, CBC, PBNP #### [address] [address] Urea nitrogen [Mass/Vol] 23.0 mg/dL High 8.0-22.0 [facility] ([place]) Comment on above: Performed By: #### G FR, ANEU, CMP, PHOS, TROPHS, ADIFF, TSH, MG, CAION, CBC, PBNP #### [address] [address] CBCon 12-23-2022 Erythrocyte distribution width (RBC) [Ratio] 15.7 % High 11.5-15.5 [facility] ([place]) Comment on above: Performed By: #### G FR, ANEU, CMP, PHOS, TROPHS, ADIFF, TSH, MG, CAION, CBC, PBNP #### [place] [address] Hematocrit (Bld) [Volume fraction] 31.8 % Low 34.0-46.0 [facility] ([place]) Comment on above: Performed By: #### G FR, ANEU, CMP, PHOS, TROPHS, ADIFF, TSH, MG, CAION, CBC, PBNP #### [place] [address] Hgb 10.4 G/dL Low 12.0-16.0 [facility] ([place]) Comment on above: Performed By: #### G FR, ANEU, CMP, PHOS, TROPHS, ADIFF, TSH, MG, CAION, CBC, PBNP #### [place] [address] MCH (RBC) [Entitic mass] 28.0 pg Normal 27.0-33.0 [facility] ([place]) Comment on above: Performed By: #### G FR, ANEU, CMP, PHOS, TROPHS, ADIFF, TSH, MG, CAION, CBC, PBNP #### [place] [phone] MCHC 32.8 G/dL Normal 32.0-36.0 [facility] ([place]) Comment on above: Performed By: #### G FR, ANEU, CMP, PHOS, TROPHS, ADIFF, TSH, MG, CAION, CBC, PBNP #### [place] [phone] MCV (RBC) [Entitic vol] 85.4 fL Normal 80.0-99.0 [facility] ([place]) Comment on above: Performed By: #### G FR, ANEU, CMP, PHOS, TROPHS, ADIFF, TSH, MG, CAION, CBC, PBNP #### [address] [address] Platelet 239 10 3/mcL Normal 150-450 [facility] ([place]) Comment on above: Performed By: #### G FR, ANEU, CMP, PHOS, TROPHS, ADIFF, TSH, MG, CAION, CBC, PBNP #### [address] [address] Platelet mean volume (Bld) [Entitic vol] 8.0 fL Normal 6.6-10.5 [facility] ([place]) Comment on above: Performed By: #### G FR, ANEU, CMP, PHOS, TROPHS, ADIFF, TSH, MG, CAION, CBC, PBNP #### [address] [address] RBC 3.72 10 6/mcL Low 4.10-5.30 [facility] ([place]) Comment on above: Performed By: #### G FR, ANEU, CMP, PHOS, TROPHS, ADIFF, TSH, MG, CAION, CBC, PBNP #### [address] [address] WBC 8.9 10 3/mcL Normal 4.5-10.8 [facility] ([place]) Comment on above: Performed By: #### G FR, ANEU, CMP, PHOS, TROPHS, ADIFF, TSH, MG, CAION, CBC, PBNP #### [address] [address] .Auto Diffon --2022 Basophil, Absolute 0.0 10 3/mcL Normal 0.0-0.2 [facility] ([place]) Comment on above: Performed By: #### G FR, ANEU, CMP, PHOS, TROPHS, ADIFF, TSH, MG, CAION, CBC, PBNP #### [place] [address] Basophils/100 WBC (Bld) 0.4 % Normal 0.0-2.5 [facility] ([place]) Comment on above: Performed By: #### G FR, ANEU, CMP, PHOS, TROPHS, ADIFF, TSH, MG, CAION, CBC, PBNP #### [address] [address] Eosinophil, Absolute 0.2 10 3/mcL Normal 0.0-0.4 [facility] ([place]) Comment on above: Performed By: #### G FR, ANEU, CMP, PHOS, TROPHS, ADIFF, TSH, MG, CAION, CBC, PBNP #### [address] [address] Eosinophils/100 WBC (Bld) 2.6 % Normal 0.0-7.0 [facility] ([place]) Comment on above: Performed By: #### G FR, ANEU, CMP, PHOS, TROPHS, ADIFF, TSH, MG, CAION, CBC, PBNP #### [address] [address] Lymphocyte, Absolute 0.9 10 3/mcL Normal 0.8-3.9 [facility] ([place]) Comment on above: Performed By: #### G FR, ANEU, CMP, PHOS, TROPHS, ADIFF, TSH, MG, CAION, CBC, PBNP #### [address] [address] Lymphocytes/100 WBC (Bld) 9.9 % Low 10.0-50.0 [facility] ([place]) Comment on above: Performed By: #### G FR, ANEU, CMP, PHOS, TROPHS, ADIFF, TSH, MG, CAION, CBC, PBNP #### [address] [address] Monocyte, Absolute 0.5 10 3/mcL Normal 0.2-1.0 [facility] ([place]) Comment on above: Performed By: #### G FR, ANEU, CMP, PHOS, TROPHS, ADIFF, TSH, MG, CAION, CBC, PBNP #### [address] [address] Monocytes/100 WBC (Bld) 4.9 % Normal 1.7-13.0 [facility] ([place]) Comment on above: Performed By: #### G FR, ANEU, CMP, PHOS, TROPHS, ADIFF, TSH, MG, CAION, CBC, PBNP #### [address] [address] Neutrophils/100 WBC (Bld) 82.2 % High 37.0-80.0 [facility] ([place]) Comment on above: Performed By: #### G FR, ANEU, CMP, PHOS, TROPHS, ADIFF, TSH, MG, CAION, CBC, PBNP #### [address] [address] .GFRon 12-22-2022 GFR Non- 46 ml/min/1.73sqm Normal [facility] ([place]) Comment on above: Result Comment: GFR [...] ADIFF, TSH, MG, CAION, CBC, PBNP #### [address] [address] GFR 56 ml/min/1.73sqm Normal [facility] ([place]) Comment on above: Result Comment: GFR [...] ADIFF, TSH, MG, CAION, CBC, PBNP #### [address] [address] .MDWon 12-22-2022 Monocyte Distribution Width 19.84 Normal 0.00-20.00 [facility] ([place]) Comment on above: Result Comment: For ED adult patients suspected of sepsis, MDW<=20.0 does not rule out sepsis or risk of sepsis Performed By: #### G FR, ANEU, CMP, PHOS, TROPHS, ADIFF, TSH, MG, CAION, CBC, PBNP #### [place] [address] .NEUABSon 12-22-2022 Neutrophil, Absolute 7.9 10 3/mcL High 2.9-6.2 [facility] ([place]) Comment on above: Performed By: #### G FR, ANEU, CMP, PHOS, TROPHS, ADIFF, TSH, MG, CAION, CBC, PBNP #### [place] [address] Chris 12-22-2022 Ethanol Level <3 Normal 0-3 [facility] ([place]) Comment on above: Performed By: #### G FR, ANEU, CMP, PHOS, TROPHS, ADIFF, TSH, MG, CAION, CBC, PBNP #### [place] [address] APTTon 12-22-2022 aPTT Coag (Bld) [Time] 33.1 s Normal 25.0-35.0 [facility] ([place]) Comment on above: Result Comment: For Heparin anticoagulation therapy, the recommended therapeutic range is: 50.6-87.4 seconds. Patients on heparin therapy may have an extreme result. Performed By: #### G FR, ANEU, CMP, PHOS, TROPHS, ADIFF, TSH, MG, CAION, CBC, PBNP #### [address] [address] Heparin dose (APTT) DTI Normal [facility] ([place]) Comment on above: Performed By: #### G FR, ANEU, CMP, PHOS, TROPHS, ADIFF, TSH, MG, CAION, CBC, PBNP #### [address] [address] BMPon 12-22-2022 BUN/Creatinine Ratio 23 ratio Normal 7-27 [facility] ([place]) Comment on above: Performed By: #### G FR, ANEU, CMP, PHOS, TROPHS, ADIFF, TSH, MG, CAION, CBC, PBNP #### [address] [address] Calcium [Mass/Vol] 9.1 mg/dL Normal 8.4-10.2 [facility] ([place]) Comment on above: Performed By: #### G FR, ANEU, CMP, PHOS, TROPHS, ADIFF, TSH, MG, CAION, CBC, PBNP #### [address] [address] Chloride [Moles/Vol] 105 mmol/L Normal 98-107 [facility] ([place]) Comment on above: Performed By: #### G FR, ANEU, CMP, PHOS, TROPHS, ADIFF, TSH, MG, CAION, CBC, PBNP #### [address] [address] CO2 [Moles/Vol] 25 mmol/L Normal 23-31 [facility] ([place]) Comment on above: Performed By: #### G FR, ANEU, CMP, PHOS, TROPHS, ADIFF, TSH, MG, CAION, CBC, PBNP #### [address] [address] Creatinine [Mass/Vol] 1.16 mg/dL High 0.55-1.02 [facility] ([place]) Comment on above: Performed By: #### G FR, ANEU, CMP, PHOS, TROPHS, ADIFF, TSH, MG, CAION, CBC, PBNP #### [address] [address] Electrolyte Balance 12.0 mEq/L Normal 4.0-15.0 [facility] ([place]) Comment on above: Performed By: #### G FR, ANEU, CMP, PHOS, TROPHS, ADIFF, TSH, MG, CAION, CBC, PBNP #### [address] [address] Glucose [Mass/Vol] 239 mg/dL High 83-110 [facility] ([place] Comment on above: Performed By: #### G FR, ANEU, CMP, PHOS, TROPHS, ADIFF, TSH, MG, CAION, CBC, PBNP #### [address] [address] Potassium [Moles/Vol] 4.2 mmol/L Normal 3.5-5.1 [facility] ([place]) Comment on above: Performed By: #### G FR, ANEU, CMP, PHOS, TROPHS, ADIFF, TSH, MG, CAION, CBC, PBNP #### [address] [address] Sodium [Moles/Vol] 142 mmol/L Normal 136-145 [facility] ([place]) Comment on above: Performed By: #### G FR, ANEU, CMP, PHOS, TROPHS, ADIFF, TSH, MG, CAION, CBC, PBNP #### [address] [address] Urea nitrogen [Mass/Vol] 27 mg/dL High 7-18 [facility] ([place]) Comment on above: Performed By: #### G FR, ANEU, CMP, PHOS, TROPHS, ADIFF, TSH, MG, CAION, CBC, PBNP #### [address] [address] CBCon 12-22-2022 Erythrocyte distribution width (RBC) [Ratio] 15.9 % High 11.5-14.5 [facility] ([place]) Comment on above: Performed By: #### G FR, ANEU, CMP, PHOS, TROPHS, ADIFF, TSH, MG, CAION, CBC, PBNP #### [place] [phone] Hematocrit (Bld) [Volume fraction] 33.7 % Low 37.0-47.0 [facility] ([place]) Comment on above: Performed By: #### G FR, ANEU, CMP, PHOS, TROPHS, ADIFF, TSH, MG, CAION, CBC, PBNP #### [place] [address] Hgb 11.1 G/dL Low 12.0-16.0 [facility] ([place]) Comment on above: Performed By: #### G FR, ANEU, CMP, PHOS, TROPHS, ADIFF, TSH, MG, CAION, CBC, PBNP #### [place] [phone] MCH (RBC) [Entitic mass] 27.6 pg Normal 27.0-31.2 [facility] ([place]) Comment on above: Performed By: #### G FR, ANEU, CMP, PHOS, TROPHS, ADIFF, TSH, MG, CAION, CBC, PBNP #### [place] [phone] MCHC 33.0 G/dL Normal 33.0-37.0 [facility] ([place]) Comment on above: Performed By: #### G FR, ANEU, CMP, PHOS, TROPHS, ADIFF, TSH, MG, CAION, CBC, PBNP #### [place] [address] MCV (RBC) [Entitic vol] 83.7 fL Normal 80.0-94.0 A [facility] ([place]) Comment on above: Performed By: #### G FR, ANEU, CMP, PHOS, TROPHS, ADIFF, TSH, MG, CAION, CBC, PBNP #### [place] [phone] Platelet 253 10 3/mcL Normal 130-400 [facility] ([place]) Comment on above: Performed By: #### G FR, ANEU, CMP, PHOS, TROPHS, ADIFF, TSH, MG, CAION, CBC, PBNP #### [place] [address] Platelet mean volume (Bld) [Entitic vol] 7.8 fL Normal 7.4-10.4 [facility] ([place]) Comment on above: Performed By: #### G FR, ANEU, CMP, PHOS, TROPHS, ADIFF, TSH, MG, CAION, CBC, PBNP #### [place] [address] RBC 4.03 10 6/mcL Low 4.20-5.40 [facility] ([place]) Comment on above: Performed By: #### G FR, ANEU, CMP, PHOS, TROPHS, ADIFF, TSH, MG, CAION, CBC, PBNP #### [place] [address] WBC 9.6 10 3/mcL Normal 4.6-10.8 [facility] ([place]) Comment on above: Performed By: #### G FR, ANEU, CMP, PHOS, TROPHS, ADIFF, TSH, MG, CAION, CBC, PBNP #### [place] [address] Gel ABOon 12-22-2022 ABO/Rh Interp Positive Invalid Interpretation Code [facility] ([place]) Comment on above: Performed By: #### G FR, ANEU, CMP, PHOS, TROPHS, ADIFF, TSH, MG, CAION, CBC, PBNP #### [place] [address] Gel ABSon 12-22-2022 Antibody Screen Gel Negative Normal [facility] ([place]) Comment on above: Performed By: #### G FR, ANEU, CMP, PHOS, TROPHS, ADIFF, TSH, MG, CAION, CBC, PBNP #### [place] [address] LABORATORYOrdered By: Boogie Voss on 12-22-2022 ABO [...] Comment on above: Interpretive Data: [employer] (CHEST, 1991, [id number]) [...] Coag (PPP) [Time] 16.9 s High 9.1-14.2 [facility] ([place]) Comment on above: Performed By: #### G FR, ANEU, CMP, PHOS, TROPHS, ADIFF, TSH, MG, CAION, CBC, PBNP #### [address] [address] PT International Ratio 1.5 Normal [facility] ([place]) Comment on above: Result Comment: [employer] (CHEST, 1992, [id number]) recommended therapeutic range for oral anticoagulant therapy is: LOW RISK: Prophylaxis of venous thrombosis INR: 2.0-3.0 Treatment of pulmonary embolism 2.0-3.0 Prevention of systemic embolism 2.0-3.0 HIGH RISK: Mechanical prosthetic valves 2.5-3.5 Performed By: #### G FR, ANEU, CMP, PHOS, TROPHS, ADIFF, TSH, MG, CAION, CBC, PBNP #### [address] [address] XR CHEST 1 VIEWon 12-22-2022 XR CHEST [...] Sign Date: 12/22/2022 7:29:33 PM Ordering Provider: [facility]) XR HIP RIGHT W/PELVIS 4 VIEW Son [...] Sign Date: 12/22/2022 7:02:52 PM [facility]ing Provider[facility]) XR KNEE 1 OR 2 VIEWS [...] 12/22/2022 6:45:26 PM Ordering Provider: ISAÍAS VANCE [facility] ([place]) Absolute lymphocyte countOrd ered By: Dr. Reagan on 11-01-2022 Lymphocytes Auto (Unsp spec) [#/Vol] 1.28 10*3/uL 0.83-4.51 [facility] Basophil percentageOrdered B y: Dr. Reagan on 11-01-2022 Basophil percentage 72 mg/dL 74-106 [facility] Basophil percentage 8.1 g/dL 6.4-8.2 [facility] Basophil percentage 0.40 mg/dL 0.20-1.00 [facility] Basophil percentage 137 mmol/L 136-145 [facility] Basophil percentage 4.1 mmol/L 3.5-5.1 [facility] Basophil percentage 105 mmol/L 98-107 [facility] Basophils (Bld) [#/Vol] 9.6 10*3/uL 4.4-11.0 [facility] Basophils (Bld) [#/Vol] 7.4 10*3/uL 2.0-7.7 [facility] Basophils/100 WBC (Bld) 77.1 % 47-70 [facility] Basophils/100 WBC (Bld) 3.2 % 0-5 [facility] Basophils/100 WBC (Bld) 0.5 % 0-1 [facility] Blood erythrocytes count (nu mber/volume)Ordered By: Dr. Reagan on 11-01-2022 RBC (Bld) [#/Vol] 4.58 10*6/uL 4.2-5.4 [facility] Blood hemoglobin measurement (mass/volume)Ordered By: Dr. Reagan on 11-01-2022 Hemoglobin (Bld) [Mass/Vol] 12.5 g/dL 12.0-15.0 [facility] Blood lymphocytes/100 leukoc ytesOrdered By: Dr. Reagan on 11-01-2022 Lymphocytes/100 WBC (Bld) 13.3 % 19-41 [facility] Blood monocytes/100 leukocyt esOrdered By: Dr. Reagan on 11-01-2022 Monocytes/100 WBC (Bld) 5.5 % 0-10 [facility] Blood platelet mean volumeOr dered By: Dr. Reagan on 11-01-2022 Platelet mean volume (Bld) [Entitic vol] 10.1 fL 6.2-12.0 [facility] Determination of erythrocyte mean corpuscular volume (MCV)Ordered By: Dr. Reagan on 11-01-2022 MCV (RBC) [Entitic vol] 88.2 fL 81-99 [facility] Hematocrit Auto (Bld) [Volum e fraction]Ordered By: Dr. Reagan on 11-01-2022 Hematocrit (Bld) [Volume fraction] 40.4 % 37-47 [facility] MCHC Auto (RBC) [Mass/Vol]Or dered By: Dr. Reagan on 11-01-2022 MCHC (RBC) [Mass/Vol] 30.9 g/dL 32-36 [facility] No Panel InformationOrdered By: Dr. Reagan on 11-01-2022 27.3 pg 27.0-32.0 [facility] 15.9 % 11.6-14.6 [facility] 50.1 fl 35.1-43.9 [facility] 0.400 % 0.0-0.9 [facility] 0 % 0-5 [facility] 36 mL/min >60 [facility] 44 mL/min >60 [facility] 21.3 RATIO 10-20 [facility] 4.6 g/dL 2.2-4.2 [facility] 76 U/L 45-117 [facility] 28 U/L 13-56 [facility] 24.0 mmol/L 21.0-32.0 [facility] Platelets bldOrdered By: Dr. Reagan on 11-01-2022 Platelets (Bld) [#/Vol] 309 10*3/uL 150-450 [facility] Serum or plasma albumin keyona urement (mass/volume)Ordered By: Dr. Reagan on 11-01-2022 Albumin [Mass/Vol] 3.5 g/dL 3.2-5.0 [facility] Serum or plasma albumin/glob ulin mass ratioOrdered By: Dr. Reagan on 11-01-2022 Albumin/Globulin [Mass ratio] 0.8 {ratio} 0.9-2.4 [facility] Serum or plasma calcium keyona urement (mass/volume)Ordered By: Dr. Reagan on 11-01-2022 Calcium [Mass/Vol] 9.9 mg/dL 8.5-10.1 [facility] Serum or plasma creatinine m easurement (mass/volume)Ordered By: Dr. Reagan on 11-01-2022 Creatinine [Mass/Vol] 1.50 mg/dL 0.55-1.02 [facility] Serum or plasma urea nitroge n measurement (mass/volume)Ordered By: Dr. Reagan on 11-01-2022 Urea nitrogen [Mass/Vol] 32 mg/dL 7-18 [facility] Thin prep Papanicolaou smear with manual screeningOrdered By: Dr. Reagan on 11-01-2022 Thin prep Papanicolaou smear with manual screening 22 U/L 15-37 [facility] Thin prep Papanicolaou smear with manual screening 8 5-15 [facility] Whole blood hemoglobin A1c/t otal hemoglobin ratio (mass fraction)Ordered By: Dr. Reagan on 11-01-2022 HbA1c (Bld) [Mass fraction] 6.5 % 3.8-5.6 [facility] Anaerobic cultureOrdered By: Dr. Waddell on 10-29-2022 Bacteria identified Anaer cx Nom (Unsp spec) No anaerobic bacteria isolated. [facility] Bacteria identified Cx Nom ( Wound)Ordered By: Dr. Waddell on 10-28-2022 Routine wound culture Meth. resistant Staph. aureus [facility] Gram stain for investigation of transfusion reactionOrdered By: Dr. Waddell on 10-27-2022 Microscopic observation Gram stain Nom (Unsp spec) [facility] Anaerobic cultureOrdered By: Mango Waddell on 10-26-2022 Bacteria identified Anaer cx Nom (Unsp spec) No anaerobic bacteria isolated. [facility] Bacteria identified Cx Nom ( Wound)Ordered By: Mango Waddell on 10-26-2022 Routine wound culture Meth. resistant Staph. aureus [facility] Gram stain for investigation of transfusion reactionOrdered By: Mango Waddell on 10-26-2022 Microscopic observation Gram stain Nom (Unsp spec) [facility] No Panel InformationOrdered By: Dr. Reagan on 10-21-2022 1.5 [facility] Whole blood prothrombin time Ordered By: Dr. Reagan on 10-21-2022 PT Coag (Bld) [Time] 16.3 s 11.7-14.9 [facility] Absolute lymphocyte countOrd ered By: Dr. Lopez on 09-15-2022 Lymphocytes Auto (Unsp spec) [#/Vol] 2.23 10*3/uL 0.83-4.51 [facility] Basophil percentageOrdered B y: Dr. Lopez on 09-15-2022 Basophil percentage 123 mg/dL 74-106 [facility] Basophil percentage 141 mmol/L 136-145 [facility] Basophil percentage 3.9 mmol/L 3.5-5.1 [facility] Basophil percentage 110 mmol/L 98-107 [facility] Basophils (Bld) [#/Vol] 11.1 10*3/uL 4.4-11.0 [facility] Basophils (Bld) [#/Vol] 7.5 10*3/uL 2.0-7.7 [facility] Basophils/100 WBC (Bld) 67.8 % 47-70 [facility] Basophils/100 WBC (Bld) 5.0 % 0-5 [facility] Basophils/100 WBC (Bld) 0.4 % 0-1 [facility] Blood erythrocytes count (nu mber/volume)Ordered By: Dr. Lopez on 09-15-2022 RBC (Bld) [#/Vol] 4.15 10*6/uL 4.2-5.4 [facility] Blood hemoglobin measurement (mass/volume)Ordered By: Dr. Lopez on 09-15-2022 Hemoglobin (Bld) [Mass/Vol] 11.2 g/dL 12.0-15.0 [facility] Blood lymphocytes/100 leukoc ytesOrdered By: Dr. Lopez on 09-15-2022 Lymphocytes/100 WBC (Bld) 20.2 % 19-41 [facility] Blood monocytes/100 leukocyt esOrdered By: Dr. Lopez on 09-15-2022 Monocytes/100 WBC (Bld) 6.1 % 0-10 [facility] Blood platelet mean volumeOr dered By: Dr. Lopez on 09-15-2022 Platelet mean volume (Bld) [Entitic vol] 10.9 fL 6.2-12.0 [facility] Determination of erythrocyte mean corpuscular volume (MCV)Ordered By: Dr. Lopez on 09-15-2022 MCV (RBC) [Entitic vol] 88.0 fL 81-99 [facility] Glucose Glucometer (BldC) [M ass/Vol]Ordered By: Dr. Lopez on 09-15-2022 Glucose [Mass/Vol] 267 mg/dL 74-106 [facility] Hematocrit Auto (Bld) [Volum e fraction]Ordered By: Dr. Lopez on 09-15-2022 Hematocrit (Bld) [Volume fraction] 36.5 % 37-47 [facility] MCHC Auto (RBC) [Mass/Vol]Or dered By: Dr. oLpez on 09-15-2022 MCHC (RBC) [Mass/Vol] 30.7 g/dL 32-36 [facility] No Panel InformationOrdered By: Dr. Lopez on 09-15-2022 27.0 pg 27.0-32.0 [facility] 15.3 % 11.6-14.6 [facility] 49.3 fl 35.1-43.9 [facility] 0.500 % 0.0-0.9 [facility] 0 % 0-5 [facility] 38 mL/min >60 [facility] 46 mL/min >60 [facility] 27.24 ml/min [facility] 31.0 RATIO 10-20 [facility] 22.0 mmol/L 21.0-32.0 [facility] No Panel InformationOrdered By: Dr. Frances on 09-15-2022 No growth in 5 days. [facility] Platelets bldOrdered By: Dr. Lopez on 09-15-2022 Platelets (Bld) [#/Vol] 257 10*3/uL 150-450 [facility] Serum or plasma calcium keyona urement (mass/volume)Ordered By: Dr. Lopez on 09-15-2022 Calcium [Mass/Vol] 9.2 mg/dL 8.5-10.1 [facility] Serum or plasma creatinine m easurement (mass/volume)Ordered By: Dr. Lopez on 09-15-2022 Creatinine [Mass/Vol] 1.45 mg/dL 0.55-1.02 [facility] Serum or plasma urea nitroge n measurement (mass/volume)Ordered By: Dr. Lopez on 09-15-2022 Urea nitrogen [Mass/Vol] 45 mg/dL 7-18 [facility] Thin prep Papanicolaou smear with manual screeningOrdered By: Dr. Lopez on 09-15-2022 Thin prep Papanicolaou smear with manual screening 9 5-15 [facility] INR in Blood by Coagulation assayOrdered By: Dr. Jasmine on 09-13-2022 INR Coag (Bld) [Relative time] 2.1 {INR} [facility] No Panel InformationOrdered By: Dr. Jasmine on 09-13-2022 23.9 SECONDS 11.7-14.9 [facility] Basophil percentageOrdered B y: Dr. Jasmine on 09-12-2022 Basophil percentage 144 mg/dL 74-106 [facility] Basophil percentage 139 mmol/L 136-145 [facility] Basophil percentage 3.9 mmol/L 3.5-5.1 [facility] Basophil percentage 105 mmol/L 98-107 [facility] Glucose Glucometer (BldC) [M ass/Vol]Ordered By: Dr. Jasmine on 09-12-2022 Glucose [Mass/Vol] 261 mg/dL 74-106 [facility] No Panel InformationOrdered By: Dr. Jasmine on 09-12-2022 32 mL/min >60 [facility] 38 mL/min >60 [facility] 23.24 ml/min [facility] 31.8 RATIO 10-20 [facility] 26.0 mmol/L 21.0-32.0 [facility] Serum or plasma calcium keyona urement (mass/volume)Ordered By: Dr. Jasmine on 09-12-2022 Calcium [Mass/Vol] 9.7 mg/dL 8.5-10.1 [facility] Serum or plasma creatinine m easurement (mass/volume)Ordered By: Dr. Jasmine on 09-12-2022 Creatinine [Mass/Vol] 1.70 mg/dL 0.55-1.02 [facility] Serum or plasma urea nitroge n measurement (mass/volume)Ordered By: Dr. Jasmine on 09-12-2022 Urea nitrogen [Mass/Vol] 54 mg/dL 7-18 [facility] [facility] Thin prep Papanicolaou smear with manual screeningOrdered By: Dr. Jasmine on 09-12-2022 Thin prep Papanicolaou smear with manual screening 8 5-15 [facility] Basophil percentageOrdered B y: Dr. Jasmine on 09-11-2022 Basophil percentage 147 mg/dL 74-106 [facility] Basophil percentage 137 mmol/L 136-145 [facility] Basophil percentage 3.3 mmol/L 3.5-5.1 [facility] Basophil percentage 106 mmol/L 98-107 [facility] Glucose Glucometer (BldC) [M ass/Vol]Ordered By: Dr. Jasmine on 09-11-2022 Glucose [Mass/Vol] 274 mg/dL 74-106 [facility] INR in Blood by Coagulation assayOrdered By: Dr. Jasmine on 09-11-2022 INR Coag (Bld) [Relative time] 3.0 {INR} [facility] No Panel InformationOrdered By: Dr. Jasmine on 09-11-2022 31.5 SECONDS 11.7-14.9 [facility] 35 mL/min >60 [facility] 42 mL/min >60 [facility] 25.32 ml/min [facility] 30.8 RATIO 10-20 [facility] 26.0 mmol/L 21.0-32.0 [facility] Serum or plasma calcium keyona urement (mass/volume)Ordered By: Dr. Jasmine on 09-11-2022 Calcium [Mass/Vol] 9.7 mg/dL 8.5-10.1 [facility] Serum or plasma creatinine m easurement (mass/volume)Ordered By: Dr. Jasmine on 09-11-2022 Creatinine [Mass/Vol] 1.56 mg/dL 0.55-1.02 [facility] Serum or plasma urea nitroge n measurement (mass/volume)Ordered By: Dr. Jasmine on 09-11-2022 Urea nitrogen [Mass/Vol] 48 mg/dL 7-18 [facility] Thin prep Papanicolaou smear with manual screeningOrdered By: Dr. Jasmine on 09-11-2022 Thin prep Papanicolaou smear with manual screening 5 5-15 [facility] Absolute lymphocyte countOrd ered By: Dr. Cho on 09-10-2022 Lymphocytes Auto (Unsp spec) [#/Vol] 0.32 10*3/uL 0.83-4.51 [facility] Bacteria identified Cx Nom ( U)Ordered By: Dr. Manzano on 09-10-2022 Culture, urine Proteus mirabilis [facility] Bacteria identified Cx Nom ( U)Ordered By: Dr. Frances on 09-10-2022 Culture, urine Mixed Gram Pos & Gram Neg Org [facility] Basophil percentageOrdered B y: Dr. Cho on 09-10-2022 Basophil percentage 6.6 g/dL 6.4-8.2 [facility] Basophil percentage 3.4 mg/dL 2.5-4.9 [facility] Basophil percentage 0.40 mg/dL 0.20-1.00 [facility] Basophils (Bld) [#/Vol] 8.5 10*3/uL 4.4-11.0 [facility] Basophils (Bld) [#/Vol] 8.1 10*3/uL 2.0-7.7 [facility] Basophils/100 WBC (Bld) 94.9 % 47-70 [facility] Basophils/100 WBC (Bld) 0.0 % 0-5 [facility] Basophils/100 WBC (Bld) 0.1 % 0-1 [facility] Blood erythrocytes count (nu mber/volume)Ordered By: Dr. Cho on 09-10-2022 RBC (Bld) [#/Vol] 3.75 10*6/uL 4.2-5.4 [facility] Blood hemoglobin measurement (mass/volume)Ordered By: Dr. Cho on 09-10-2022 Hemoglobin (Bld) [Mass/Vol] 10.3 g/dL 12.0-15.0 [facility] Blood lymphocytes/100 leukoc ytesOrdered By: Dr. Cho on 09-10-2022 Lymphocytes/100 WBC (Bld) 3.8 % 19-41 [facility] Blood manual differential co mment interpretation (narrative result)Ordered By: Dr. Cho on 09-10-2022 Manual differential comment Jovi (Bld) [Interp] SCANNED [facility] Blood monocytes/100 leukocyt esOrdered By: [address] Cho on 09-10-2022 Monocytes/100 WBC (Bld) 0.7 % 0-10 [facility] Blood platelet mean volumeOr dered By: Dr. Cho on 09-10-2022 Platelet mean volume (Bld) [Entitic vol] 10.4 fL 6.2-12.0 [facility] Determination of erythrocyte mean corpuscular volume (MCV)Ordered By: Dr. Cho on 09-10-2022 MCV (RBC) [Entitic vol] 86.9 fL 81-99 [facility] Hematocrit Auto (Bld) [Volum e fraction]Ordered By: Dr. Cho on 09-10-2022 Hematocrit (Bld) [Volume fraction] 32.6 % 37-47 [facility] Laboratory - Microbiology an d Antimicrobial susceptibilityOrdered By: Nadja Jasmine on 09-10-2022 Respiratory pathogens DNA and RNA 12b panel ADE+probe (Unsp spec) [facility] Laboratory - Microbiology an d Antimicrobial susceptibilityOrdered By: Dr. Jasmine on 09-10-2022 Respiratory pathogens DNA and RNA 12b panel ADE+probe (Unsp spec) [facility] MCHC Auto (RBC) [Mass/Vol]Or dered By: Dr. Cho on 09-10-2022 MCHC (RBC) [Mass/Vol] 31.6 g/dL 32-36 [facility] No Panel InformationOrdered By: Dr. Cho on 09-10-2022 27.5 pg 27.0-32.0 [facility] 15.5 % 11.6-14.6 [facility] 49.1 fl 35.1-43.9 [facility] 0.500 % 0.0-0.9 [facility] 0 % 0-5 [facility] 3.7 g/dL 2.2-4.2 [facility] 63 U/L 45-117 [facility] 31 U/L 13-56 [facility] 2.2 mg/dL 1.6-2.6 [facility] Platelets bldOrdered By: Dr. Cho on 09-10-2022 Platelets (Bld) [#/Vol] 237 10*3/uL 150-450 [facility] Serum or plasma albumin keyona urement (mass/volume)Ordered By: Dr. Cho on 09-10-2022 Albumin [Mass/Vol] 2.9 g/dL 3.2-5.0 [facility] Serum or plasma albumin/glob ulin mass ratioOrdered By: Dr. Cho on 09-10-2022 Albumin/Globulin [Mass ratio] 0.8 {ratio} 0.9-2.4 [facility] Thin prep Papanicolaou smear with manual screeningOrdered By: Dr. Cho on 09-10-2022 Thin prep Papanicolaou smear with manual screening 15 U/L 15-37 [facility] Absolute lymphocyte countOrd ered By: ED PROVIDER on 09-09-2022 Lymphocytes Auto (Unsp spec) [#/Vol] 0.74 10*3/uL 0.83-4.51 [facility] Bacteria identified Cx Nom ( U)Ordered By: Krishna Frances on 09-09-2022 Culture, urine Mixed Gram Pos & Gram Neg Org [facility] Basophil percentageOrdered B y: Dr. Frances on 09-09-2022 Basophil percentage 1.2 mmol/L 0.4-2.0 [facility] Basophil percentage 0 SEEN /hpf 0-5 [facility] Basophil percentage 7.7 g/dL 6.4-8.2 [facility] Basophil percentage 0.40 mg/dL 0.20-1.00 [facility] Basophil percentage 2.7 mmol/L 0.4-2.0 [facility] Basophil percentageOrdered B y: ED PROVIDER on 09-09-2022 Basophil percentage 226 mg/dL 74-106 [facility] Basophil percentage 136 mmol/L 136-145 [facility] Basophil percentage 5.0 mmol/L 3.5-5.1 [facility] Basophil percentage 108 mmol/L 98-107 [facility] Basophils (Bld) [#/Vol] 12.6 10*3/uL 4.4-11.0 [facility] Basophils (Bld) [#/Vol] 11.4 10*3/uL 2.0-7.7 [facility] Basophils/100 WBC (Bld) 90.4 % 47-70 [facility] Basophils/100 WBC (Bld) 0.6 % 0-5 [facility] Basophils/100 WBC (Bld) 0.4 % 0-1 [facility] Bilirubin Test strip Ql (U)O rdered By: Dr. Frances on 09-09-2022 Bilirubin Ql (U) Negative Negative [facility] Blood erythrocytes count (nu mber/volume)Ordered By: ED PROVIDER on 09-09-2022 RBC (Bld) [#/Vol] 4.34 10*6/uL 4.2-5.4 [facility] Blood hemoglobin measurement (mass/volume)Ordered By: ED PROVIDER on 09-09-2022 Hemoglobin (Bld) [Mass/Vol] 11.8 g/dL 12.0-15.0 [facility] Blood lymphocytes/100 leukoc ytesOrdered By: ED PROVIDER on 09-09-2022 Lymphocytes/100 WBC (Bld) 5.9 % 19-41 [facility] Blood monocytes/100 leukocyt esOrdered By: ED PROVIDER on 09-09-2022 Monocytes/100 WBC (Bld) 2.2 % 0-10 [facility] Blood platelet mean volumeOr dered By: ED PROVIDER on 09-09-2022 Platelet mean volume (Bld) [Entitic vol] 10.4 fL 6.2-12.0 [facility] COVID-19 virus antigen assay Ordered By: Dr. Frances on 09-09-2022 SARS-CoV-2 (COVID-19) Ag IA.rapid Ql (Resp) Not detected Not Detect [facility] COVID-19 virus antigen assay Ordered By: ED PROVIDER on 09-09-2022 SARS-CoV-2 (COVID-19) Ag IA.rapid Ql (Resp) [facility] Determination of erythrocyte mean corpuscular volume (MCV)Ordered By: ED PROVIDER on 09-09-2022 MCV (RBC) [Entitic vol] 88.2 fL 81-99 [facility] Direct bilirubinOrdered By: Dr. Frances on 09-09-2022 Bilirubin.direct [Mass/Vol] 0.12 mg/dL 0.00-0.30 [facility] Hematocrit Auto (Bld) [Volum e fraction]Ordered By: ED PROVIDER on 09-09-2022 Hematocrit (Bld) [Volume fraction] 38.3 % 37-47 [facility] INR in Blood by Coagulation assayOrdered By: Dr. Frances on 09-09-2022 INR Coag (Bld) [Relative time] 1.7 {INR} [facility] Ketones Test strip Ql (U)Ord ered By: Dr. Frances on 09-09-2022 Ketones Ql (U) Negative Negative [facility] MCHC Auto (RBC) [Mass/Vol]Or dered By: ED PROVIDER on 09-09-2022 MCHC (RBC) [Mass/Vol] 30.8 g/dL 32-36 [facility] Mucus LM Ql (Urine sed)Order ed By: Dr. Frances on 09-09-2022 Mucus Ql (Urine sed) 0 SEEN /hpf [facility] Nitrite Test strip Ql (U)Ord ered By: Dr. Frances on 09-09-2022 Nitrite Ql (U) Negative Negative [facility] No Panel InformationOrdered By: Krishna Frances on 09-09-2022 No growth in 5 days. [facility] No Panel InformationOrdered By: Dr. Frances on 09-09-2022 20.0 SECONDS 11.7-14.9 [facility] 4.3 g/dL 2.2-4.2 [facility] 83 U/L 45-117 [facility] 37 U/L 13-56 [facility] 272.2 pg/mL 0-100 [facility] No Panel InformationOrdered By: ED PROVIDER on 09-09-2022 27.2 pg 27.0-32.0 [facility] 15.4 % 11.6-14.6 [facility] 50.3 fl 35.1-43.9 [facility] 0.500 % 0.0-0.9 [facility] 0 % 0-5 [facility] 43 mL/min >60 [facility] 52 mL/min >60 [facility] 30.62 ml/min [facility] 27.9 RATIO 10-20 [facility] 11 pg/mL 3.0-54.0 [facility] 24.0 mmol/L 21.0-32.0 [facility] Platelets bldOrdered By: ED PROVIDER on 09-09-2022 Platelets (Bld) [#/Vol] 275 10*3/uL 150-450 [facility] Protein Test strip Ql (U)Ord ered By: Dr. Frances on 09-09-2022 Protein Ql (U) 30 mg/dl Negative [facility] Serum or plasma albumin keyona urement (mass/volume)Ordered By: Dr. Frances on 09-09-2022 Albumin [Mass/Vol] 3.4 g/dL 3.2-5.0 [facility] Serum or plasma calcium keyona urement (mass/volume)Ordered By: ED PROVIDER on 09-09-2022 Calcium [Mass/Vol] 9.9 mg/dL 8.5-10.1 [facility] Serum or plasma creatinine m easurement (mass/volume)Ordered By: ED PROVIDER on 09-09-2022 Creatinine [Mass/Vol] 1.29 mg/dL 0.55-1.02 [facility] Serum or plasma urea nitroge n measurement (mass/volume)Ordered By: ED PROVIDER on 09-09-2022 Urea nitrogen [Mass/Vol] 36 mg/dL 7-18 [facility] Squamous epithelial cells de tection in urine sediment by light microscopyOrdered By: Dr. Frances on 09-09-2022 Epithelial cells.squamous LM Ql (Urine sed) 0-5 SEEN /hpf 5-10 [facility] Thin prep Papanicolaou smear with manual screeningOrdered By: Dr. Frances on 09-09-2022 Thin prep Papanicolaou smear with manual screening 24 U/L 15-37 [facility] Thin prep Papanicolaou smear with manual screeningOrdered By: ED PROVIDER on 09-09-2022 Thin prep Papanicolaou smear with manual screening 4 5-15 [facility] Urine blood detectionOrdered By: Dr. Frances on 09-09-2022 RBC Ql (U) Negative Negative [facility] RBC Ql (U) 0 SEEN /hpf 0-5 [facility] Urine clarityOrdered By: Dr. Frances on 09-09-2022 Clarity (U) Clear Clear [facility] Urine color determinationOrd ered By: Dr. Frances on 09-09-2022 Color (U) Yellow Yellow [facility] Urine glucose detectionOrder ed By: Dr. Frances on 09-09-2022 Glucose Ql (U) Normal mg/dl Normal [facility] Urine leukocyte esterase det ection by dipstickOrdered By: Dr. Frances on 09-09-2022 Leukocyte esterase Test strip Ql (U) 25 /ul Negative [facility] Urine pHOrdered By: Dr. Sher cazares on 09-09-2022 pH (U) 6.0 [pH] 5.0 - 8.0 [facility] Urine sediment bacteria coun t by microscopy (number/high power field)Ordered By: Dr. Frances on 09-09-2022 Bacteria LM.HPF (Urine sed) [#/Area] 0 /[HPF] None Seen [facility] Urine specific gravity measu rementOrdered By: Dr. Frances on 09-09-2022 Specific gravity (U) [Rel density] 1.015 1.002-1.030 [facility] Urobilinogen Auto test strip Ql (U)Ordered By: Dr. Frances on 09-09-2022 Urobilinogen Ql (U) Normal mg/dl Normal [facility] Absolute lymphocyte countOrd ered By: Dr. Manzano on 09-06-2022 Lymphocytes Auto (Unsp spec) [#/Vol] 1.73 10*3/uL 0.83-4.51 [facility] Amorphous sediment detection in urine sediment by light microscopyOrdered By: Dr. Manzano on 09-06-2022 Amorphous sediment LM Ql (Urine sed) 1+ PHOS [facility] Bacteria identified Cx Nom ( U)Ordered By: Tj Manzano on 09-06-2022 Culture, urine Proteus mirabilis [facility] Basophil percentageOrdered B y: Dr. Manzano on 09-06-2022 Basophil percentage 10-25 SEEN /hpf 0-5 [facility] Basophil percentage 164 mg/dL 74-106 [facility] Basophil percentage 136 mmol/L 136-145 [facility] Basophil percentage 5.2 mmol/L 3.5-5.1 [facility] Basophil percentage 107 mmol/L 98-107 [facility] Basophils (Bld) [#/Vol] 8.8 10*3/uL 4.4-11.0 [facility] Basophils (Bld) [#/Vol] 6.2 10*3/uL 2.0-7.7 [facility] Basophils/100 WBC (Bld) 70.1 % 47-70 [facility] Basophils/100 WBC (Bld) 3.6 % 0-5 [facility] Basophils/100 WBC (Bld) 0.7 % 0-1 [facility] Bilirubin Test strip Ql (U)O rdered By: Dr. Manzano on 09-06-2022 Bilirubin Ql (U) Negative Negative [facility] Blood erythrocytes count (nu mber/volume)Ordered By: Dr. Manzano on 09-06-2022 RBC (Bld) [#/Vol] 4.11 10*6/uL 4.2-5.4 [facility] Blood hemoglobin measurement (mass/volume)Ordered By: Dr. Manzano on 09-06-2022 Hemoglobin (Bld) [Mass/Vol] 11.5 g/dL 12.0-15.0 [facility] Blood lymphocytes/100 leukoc ytesOrdered By: Dr. Manzano on 09-06-2022 Lymphocytes/100 WBC (Bld) 19.7 % 19-41 [facility] Blood monocytes/100 leukocyt esOrdered By: Dr. Manzano on 09-06-2022 Monocytes/100 WBC (Bld) 5.7 % 0-10 [facility] Blood platelet mean volumeOr dered By: Dr. Manzano on 09-06-2022 Platelet mean volume (Bld) [Entitic vol] 10.9 fL 6.2-12.0 [facility] Determination of erythrocyte mean corpuscular volume (MCV)Ordered By: Dr. Manzano on 09-06-2022 MCV (RBC) [Entitic vol] 88.3 fL 81-99 [facility] Hematocrit Auto (Bld) [Volum e fraction]Ordered By: Dr. Manzano on 09-06-2022 Hematocrit (Bld) [Volume fraction] 36.3 % 37-47 [facility] Ketones Test strip Ql (U)Ord ered By: Dr. Manzano on 09-06-2022 Ketones Ql (U) Negative Negative [facility] MCHC Auto (RBC) [Mass/Vol]Or dered By: Dr. Manzano on 09-06-2022 MCHC (RBC) [Mass/Vol] 31.7 g/dL 32-36 [facility] Magnesium ammonium phosphate crystal detectionOrdered By: Dr. Manzano on 09-06-2022 Triple phosphate crystals LM Ql (Urine sed) 2+ /hpf [facility] Mucus LM Ql (Urine sed)Order ed By: Dr. Manzano on 09-06-2022 Mucus Ql (Urine sed) 0 SEEN /hpf [facility] Nitrite Test strip Ql (U)Ord ered By: Dr. Manzano on 09-06-2022 Nitrite Ql (U) Positive Negative [facility] No Panel InformationOrdered By: Dr. Manzano on 09-06-2022 28.0 pg 27.0-32.0 [facility] 15.6 % 11.6-14.6 [facility] 50.9 fl 35.1-43.9 [facility] 0.200 % 0.0-0.9 [facility] 0 % 0-5 [facility] 39 mL/min >60 [facility] 47 mL/min >60 [facility] 27.62 ml/min [facility] 32.9 RATIO 10-20 [facility] 24.0 mmol/L 21.0-32.0 [facility] Platelets bldOrdered By: Dr. Manzano on 09-06-2022 Platelets (Bld) [#/Vol] 306 10*3/uL 150-450 [facility] Protein Test strip Ql (U)Ord ered By: Dr. Manzano on 09-06-2022 Protein Ql (U) 30 mg/dl Negative [facility] Serum or plasma calcium keyona urement (mass/volume)Ordered By: Dr. Manzano on 09-06-2022 Calcium [Mass/Vol] 9.6 mg/dL 8.5-10.1 [facility] Serum or plasma creatinine m easurement (mass/volume)Ordered By: Dr. Manzano on 09-06-2022 Creatinine [Mass/Vol] 1.43 mg/dL 0.55-1.02 [facility] Serum or plasma urea nitroge n measurement (mass/volume)Ordered By: Dr. Manzano on 09-06-2022 Urea nitrogen [Mass/Vol] 47 mg/dL 7-18 [facility] Squamous epithelial cells de tection in urine sediment by light microscopyOrdered By: Dr. Manzano on 09-06-2022 Epithelial cells.squamous LM Ql (Urine sed) 0-5 SEEN /hpf 5-10 [facility] Thin prep Papanicolaou smear with manual screeningOrdered By: Dr. Manzano on 09-06-2022 Thin prep Papanicolaou smear with manual screening 5 5-15 [facility] Urine blood detectionOrdered By: Dr. Manzano on 09-06-2022 RBC Ql (U) 10 /ul Negative [facility] RBC Ql (U) 0-5 SEEN /hpf 0-5 [facility] Urine clarityOrdered By: Dr. Manzano on 09-06-2022 Clarity (U) Sl. Cloudy Clear [facility] Urine color determinationOrd ered By: Dr. Manzano on 09-06-2022 Color (U) Yellow Yellow [facility] Urine glucose detectionOrder ed By: Dr. Manzano on 09-06-2022 Glucose Ql (U) Normal mg/dl Normal [facility] Urine leukocyte esterase det ection by dipstickOrdered By: Dr. Manzano on 09-06-2022 Leukocyte esterase Test strip Ql (U) 500 /ul Negative [facility] Urine pHOrdered By: Dr. Binta gonzalez on 09-06-2022 pH (U) 8.0 [pH] 5.0 - 8.0 [facility] Urine sediment bacteria coun t by microscopy (number/high power field)Ordered By: Dr. Manzano on 09-06-2022 Bacteria LM.HPF (Urine sed) [#/Area] 0 /[HPF] None Seen [facility] Urine specific gravity measu rementOrdered By: Dr. Manzano on 09-06-2022 Specific gravity (U) [Rel density] 1.010 1.002-1.030 [facility] Urobilinogen Auto test strip Ql (U)Ordered By: Dr. Manzano on 09-06-2022 Urobilinogen Ql (U) Normal mg/dl Normal [facility] Absolute lymphocyte countOrd ered By: Dr. Reagan on 09-01-2022 Lymphocytes Auto (Unsp spec) [#/Vol] 1.40 10*3/uL 0.83-4.51 [facility] Basophil percentageOrdered B y: Dr. Reagan on 09-01-2022 Basophil percentage 181 mg/dL 74-106 [facility] Basophil percentage 8.0 g/dL 6.4-8.2 [facility] Basophil percentage 0.40 mg/dL 0.20-1.00 [facility] Basophil percentage 136 mmol/L 136-145 [facility] Basophil percentage 4.9 mmol/L 3.5-5.1 [facility] Basophil percentage 107 mmol/L 98-107 [facility] Basophils (Bld) [#/Vol] 11.0 10*3/uL 4.4-11.0 [facility] Basophils (Bld) [#/Vol] 8.6 10*3/uL 2.0-7.7 [facility] Basophils/100 WBC (Bld) 78.7 % 47-70 [facility] Basophils/100 WBC (Bld) 2.8 % 0-5 [facility] Basophils/100 WBC (Bld) 0.5 % 0-1 [facility] Blood erythrocytes count (nu mber/volume)Ordered By: Dr. Reagan on 09-01-2022 RBC (Bld) [#/Vol] 4.65 10*6/uL 4.2-5.4 [facility] Blood hemoglobin measurement (mass/volume)Ordered By: Dr. Reagan on 09-01-2022 Hemoglobin (Bld) [Mass/Vol] 12.6 g/dL 12.0-15.0 [facility] Blood lymphocytes/100 leukoc ytesOrdered By: Dr. Reagan on 09-01-2022 Lymphocytes/100 WBC (Bld) 12.8 % 19-41 [facility] Blood monocytes/100 leukocyt esOrdered By: Dr. Reagan on 09-01-2022 Monocytes/100 WBC (Bld) 4.8 % 0-10 [facility] Blood platelet mean volumeOr dered By: Dr. Reagan on 09-01-2022 Platelet mean volume (Bld) [Entitic vol] 10.3 fL 6.2-12.0 [facility] Determination of erythrocyte mean corpuscular volume (MCV)Ordered By: Dr. Reagan on 09-01-2022 MCV (RBC) [Entitic vol] 86.7 fL 81-99 [facility] Hematocrit Auto (Bld) [Volum e fraction]Ordered By: Dr. Reagan on 09-01-2022 Hematocrit (Bld) [Volume fraction] 40.3 % 37-47 [facility] INR in Blood by Coagulation assayOrdered By: Nadja Mckeon on 09-01-2022 INR Coag (Bld) [Relative time] 1.6 {INR} [facility] MCHC Auto (RBC) [Mass/Vol]Or dered By: Dr. Reagan on 09-01-2022 MCHC (RBC) [Mass/Vol] 31.3 g/dL 32-36 [facility] No Panel InformationOrdered By: Nadja Mckeon on 09-01-2022 18.4 SECONDS 11.7-14.9 [facility] No Panel InformationOrdered By: Dr. Reagan on 09-01-2022 27.1 pg 27.0-32.0 [facility] 15.8 % 11.6-14.6 [facility] 50.1 fl 35.1-43.9 [facility] 0.400 % 0.0-0.9 [facility] 0 % 0-5 [facility] 36 mL/min >60 [facility] 44 mL/min >60 [facility] 38.4 RATIO 10-20 [facility] 4.3 g/dL 2.2-4.2 [facility] 82 U/L 45-117 [facility] 37 U/L 13-56 [facility] 22.0 mmol/L 21.0-32.0 [facility] 2.59 uIU/mL 0.358-3.74 [facility] 1.19 ng/dL 0.76-1.46 [facility] No Panel Informationon 09-01 6.1 % 4.2-6.3 [facility] Platelets bldOrdered By: Dr. Reagan on 09-01-2022 Platelets (Bld) [#/Vol] 423 10*3/uL 150-450 [facility] Serum or plasma albumin keyona urement (mass/volume)Ordered By: Dr. Reagan on 09-01-2022 Albumin [Mass/Vol] 3.7 g/dL 3.2-5.0 [facility] Serum or plasma albumin/glob ulin mass ratioOrdered By: Dr. Reagan on 09-01-2022 Albumin/Globulin [Mass ratio] 0.9 {ratio} 0.9-2.4 [facility] Serum or plasma calcium keyona urement (mass/volume)Ordered By: Dr. Reagan on 09-01-2022 Calcium [Mass/Vol] 10.0 mg/dL 8.5-10.1 [facility] Serum or plasma creatinine m easurement (mass/volume)Ordered By: Dr. Reagan on 09-01-2022 Creatinine [Mass/Vol] 1.51 mg/dL 0.55-1.02 [facility] Serum or plasma urea nitroge n measurement (mass/volume)Ordered By: Dr. Reagan on 09-01-2022 Urea nitrogen [Mass/Vol] 58 mg/dL 7-18 [facility] Thin prep Papanicolaou smear with manual screeningOrdered By: Dr. Reagan on 09-01-2022 Thin prep Papanicolaou smear with manual screening 24 U/L 15-37 [facility] Thin prep Papanicolaou smear with manual screening 7 5-15 [facility] Basophil percentageOrdered B y: Dr. Morocho on 08-18-2022 Basophil percentage 126 mg/dL 74-106 [facility] Basophil percentage 141 mmol/L 136-145 [facility] Basophil percentage 5.0 mmol/L 3.5-5.1 [facility] Basophil percentage 112 mmol/L 98-107 [facility] Basophils (Bld) [#/Vol] 10.1 10*3/uL 4.4-11.0 [facility] Blood erythrocytes count (nu mber/volume)Ordered By: Dr. Morocho on 08-18-2022 RBC (Bld) [#/Vol] 3.97 10*6/uL 4.2-5.4 [facility] Blood hemoglobin measurement (mass/volume)Ordered By: Dr. Morocho on 08-18-2022 Hemoglobin (Bld) [Mass/Vol] 10.7 g/dL 12.0-15.0 [facility] Blood platelet mean volumeOr dered By: Dr. Morocho on 08-18-2022 Platelet mean volume (Bld) [Entitic vol] 10.4 fL 6.2-12.0 [facility] Determination of erythrocyte mean corpuscular volume (MCV)Ordered By: Dr. Morocho on 08-18-2022 MCV (RBC) [Entitic vol] 89.7 fL 81-99 [facility] Erythrocyte sedimentation ra teOrdered By: Dr. Morocho on 08-18-2022 ESR (Bld) [Velocity] 57 mm/h 0-30 [facility] Hematocrit Auto (Bld) [Volum e fraction]Ordered By: Dr. Morocho on 08-18-2022 Hematocrit (Bld) [Volume fraction] 35.6 % 37-47 [facility] MCHC Auto (RBC) [Mass/Vol]Or dered By: Dr. Morocho on 08-18-2022 MCHC (RBC) [Mass/Vol] 30.1 g/dL 32-36 [facility] No Panel InformationOrdered By: Dr. Morcoho on 08-18-2022 27.0 pg 27.0-32.0 [facility] 15.8 % 11.6-14.6 [facility] 51.8 fl 35.1-43.9 [facility] 46 mL/min >60 [facility] 55 mL/min >60 [facility] 35.8 RATIO 10-20 [facility] 24.0 mmol/L 21.0-32.0 [facility] Platelets bldOrdered By: Dr. Morocho on 08-18-2022 Platelets (Bld) [#/Vol] 332 10*3/uL 150-450 [facility] Serum or plasma calcium keyona urement (mass/volume)Ordered By: Dr. Morocho on 08-18-2022 Calcium [Mass/Vol] 9.2 mg/dL 8.5-10.1 [facility] Serum or plasma creatinine m easurement (mass/volume)Ordered By: Dr. Morocho on 08-18-2022 Creatinine [Mass/Vol] 1.23 mg/dL 0.55-1.02 [facility] Serum or plasma urea nitroge n measurement (mass/volume)Ordered By: Dr. Morocho on 08-18-2022 Urea nitrogen [Mass/Vol] 44 mg/dL 7-18 [facility] Thin prep Papanicolaou smear with manual screeningOrdered By: Dr. Morocho on 08-18-2022 Thin prep Papanicolaou smear with manual screening 5 5-15 [facility] Vancomycin troughOrdered By: Dr. Morocho on 08-18-2022 Vancomycin trough [Mass/Vol] 16.1 ug/mL 5.0-15.0 [facility] Glucose Glucometer (BldC) [M ass/Vol]Ordered By: Dr. Lopez on 08-16-2022 Glucose [Mass/Vol] 228 mg/dL 74-106 [facility] INR in Blood by Coagulation assayOrdered By: Dr. Delvalle on 08-15-2022 INR Coag (Bld) [Relative time] 1.9 {INR} [facility] No Panel InformationOrdered By: Dr. Delvalle on 08-15-2022 21.1 SECONDS 11.7-14.9 [facility] Vancomycin troughOrdered By: Dr. Delvalle on 08-15-2022 Vancomycin trough [Mass/Vol] 22.9 ug/mL 5.0-15.0 [facility] Glucose Glucometer (BldC) [M ass/Vol]Ordered By: Dr. Jacobsen on 08-13-2022 Glucose [Mass/Vol] 153 mg/dL 74-106 [facility] Glucose [Mass/Vol] 178 mg/dL 74-106 [facility] INR in Blood by Coagulation assayOrdered By: Dr. Delvalle on 08-13-2022 INR Coag (Bld) [Relative time] 2.0 {INR} [facility] No Panel InformationOrdered By: Dr. Delvalle on 08-13-2022 22.5 SECONDS 11.7-14.9 [facility] Vancomycin troughOrdered By: Dr. Delvalle on 08-13-2022 Vancomycin trough [Mass/Vol] 20.3 ug/mL 5.0-15.0 [facility] Absolute lymphocyte countOrd ered By: Dr. Delvalle on 08-12-2022 Lymphocytes Auto (Unsp spec) [#/Vol] 1.54 10*3/uL 0.83-4.51 [facility] Basophil percentageOrdered B y: Dr. Delvalle on 08-12-2022 Basophil percentage 160 mg/dL 74-106 [facility] Basophil percentage 141 mmol/L 136-145 [facility] Basophil percentage 3.9 mmol/L 3.5-5.1 [facility] Basophil percentage 114 mmol/L 98-107 [facility] Basophils (Bld) [#/Vol] 4.6 10*3/uL 4.4-11.0 [facility] Basophils (Bld) [#/Vol] 2.2 10*3/uL 2.0-7.7 [facility] Basophils/100 WBC (Bld) 48.4 % 47-70 [facility] Basophils/100 WBC (Bld) 6.7 % 0-5 [facility] Basophils/100 WBC (Bld) 1.1 % 0-1 [facility] Blood erythrocytes count (nu mber/volume)Ordered By: Dr. Delvalle on 08-12-2022 RBC (Bld) [#/Vol] 3.51 10*6/uL 4.2-5.4 [facility] Blood hemoglobin measurement (mass/volume)Ordered By: Dr. Delvalle on 08-12-2022 Hemoglobin (Bld) [Mass/Vol] 9.7 g/dL 12.0-15.0 [facility] Blood lymphocytes/100 leukoc ytesOrdered By: Dr. Delvalle on 08-12-2022 Lymphocytes/100 WBC (Bld) 33.4 % 19-41 [facility] Blood monocytes/100 leukocyt esOrdered By: Dr. Delvalle on 08-12-2022 Monocytes/100 WBC (Bld) 10.0 % 0-10 [facility] Blood platelet mean volumeOr dered By: Dr. Delvalle on 08-12-2022 Platelet mean volume (Bld) [Entitic vol] 9.8 fL 6.2-12.0 [facility] Determination of erythrocyte mean corpuscular volume (MCV)Ordered By: Dr. Delvalle on 08-12-2022 MCV (RBC) [Entitic vol] 88.0 fL 81-99 [facility] Glucose Glucometer (BldC) [M ass/Vol]Ordered By: Dr. Jacobsen on 08-12-2022 Glucose [Mass/Vol] 118 mg/dL 74-106 [facility] Hematocrit Auto (Bld) [Volum e fraction]Ordered By: Dr. Delvalle on 08-12-2022 Hematocrit (Bld) [Volume fraction] 30.9 % 37-47 [facility] INR in Blood by Coagulation assayOrdered By: Dr. Delvalle on 08-12-2022 INR Coag (Bld) [Relative time] 1.8 {INR} [facility] MCHC Auto (RBC) [Mass/Vol]Or dered By: Dr. Delvalle on 08-12-2022 MCHC (RBC) [Mass/Vol] 31.4 g/dL 32-36 [facility] No Panel InformationOrdered By: Dr. Delvalle on 08-12-2022 27.6 pg 27.0-32.0 [facility] 15.9 % 11.6-14.6 [facility] 50.9 fl 35.1-43.9 [facility] 0.400 % 0.0-0.9 [facility] 0 % 0-5 [facility] 20.6 SECONDS 11.7-14.9 [facility] 54 mL/min >60 [facility] 65 mL/min >60 [facility] 36.92 ml/min [facility] 32.7 RATIO 10-20 [facility] 20.0 mmol/L 21.0-32.0 [facility] Platelets bldOrdered By: Dr. Delvalle on 08-12-2022 Platelets (Bld) [#/Vol] 221 10*3/uL 150-450 [facility] Serum or plasma calcium keyona urement (mass/volume)Ordered By: Dr. Delvalle on 08-12-2022 Calcium [Mass/Vol] 8.6 mg/dL 8.5-10.1 [facility] Serum or plasma creatinine m easurement (mass/volume)Ordered By: Dr. Delvalle on 08-12-2022 Creatinine [Mass/Vol] 1.07 mg/dL 0.55-1.02 [facility] Serum or plasma urea nitroge n measurement (mass/volume)Ordered By: Dr. Delvalle on 08-12-2022 Urea nitrogen [Mass/Vol] 35 mg/dL 7-18 [facility] Thin prep Papanicolaou smear with manual screeningOrdered By: Dr. Delvalle on 08-12-2022 Thin prep Papanicolaou smear with manual screening 7 5-15 [facility] Absolute lymphocyte countOrd ered By: Dr. Mota on 08-11-2022 Lymphocytes Auto (Unsp spec) [#/Vol] 0.88 10*3/uL 0.83-4.51 [facility] Basophil percentageOrdered B y: Dr. Mota on 08-11-2022 Basophil percentage 169 mg/dL 74-106 [facility] Basophil percentage 138 mmol/L 136-145 [facility] Basophil percentage 5.1 mmol/L 3.5-5.1 [facility] Basophil percentage 108 mmol/L 98-107 [facility] Basophils (Bld) [#/Vol] 4.3 10*3/uL 4.4-11.0 [facility] Basophils (Bld) [#/Vol] 2.7 10*3/uL 2.0-7.7 [facility] Basophils/100 WBC (Bld) 64.1 % 47-70 [facility] Basophils/100 WBC (Bld) 4.4 % 0-5 [facility] Basophils/100 WBC (Bld) 0.7 % 0-1 [facility] Blood erythrocytes count (nu mber/volume)Ordered By: Dr. Mota on 08-11-2022 RBC (Bld) [#/Vol] 4.00 10*6/uL 4.2-5.4 [facility] Blood hemoglobin measurement (mass/volume)Ordered By: Dr. Mota on 08-11-2022 Hemoglobin (Bld) [Mass/Vol] 11.0 g/dL 12.0-15.0 [facility] Blood lymphocytes/100 leukoc ytesOrdered By: Dr. Mota on 08-11-2022 Lymphocytes/100 WBC (Bld) 20.6 % 19-41 [facility] Blood monocytes/100 leukocyt esOrdered By: Dr. Mota on 08-11-2022 Monocytes/100 WBC (Bld) 10.0 % 0-10 [facility] Blood platelet mean volumeOr dered By: Dr. Mota on 08-11-2022 Platelet mean volume (Bld) [Entitic vol] 9.9 fL 6.2-12.0 [facility] Determination of erythrocyte mean corpuscular volume (MCV)Ordered By: Dr. Mota on 08-11-2022 MCV (RBC) [Entitic vol] 87.5 fL 81-99 [facility] Fungus cultureOrdered By: Dr Ani Wolff on 08-11-2022 Fungus identified Cx Nom (Unsp spec) [facility] Fungus stainOrdered By: Dr. Wolff on 08-11-2022 Fungus identified Fungus stain Nom (Unsp spec) [facility] Hematocrit Auto (Bld) [Volum e fraction]Ordered By: Dr. Mota on 08-11-2022 Hematocrit (Bld) [Volume fraction] 35.0 % 37-47 [facility] INR in Blood by Coagulation assayOrdered By: Dr. Mota on 08-11-2022 INR Coag (Bld) [Relative time] 1.5 {INR} [facility] MCHC Auto (RBC) [Mass/Vol]Or dered By: Dr. Mota on 08-11-2022 MCHC (RBC) [Mass/Vol] 31.4 g/dL 32-36 [facility] No Panel InformationOrdered By: Dr. Delvalle on 08-11-2022 2.1 mg/dL 1.6-2.6 [facility] No Panel InformationOrdered By: Dr. Mota on 08-11-2022 27.5 pg 27.0-32.0 [facility] 15.7 % 11.6-14.6 [facility] 49.7 fl 35.1-43.9 [facility] 0.200 % 0.0-0.9 [facility] 0 % 0-5 [facility] 17.3 SECONDS 11.7-14.9 [facility] 42 mL/min >60 [facility] 51 mL/min >60 [facility] 29.70 ml/min [facility] 33.8 RATIO 10-20 [facility] 10 pg/mL 3.0-54.0 [facility] 24.0 mmol/L 21.0-32.0 [facility] 750.3 pg/mL 0-100 [facility] Platelets bldOrdered By: Dr. Mota on 08-11-2022 Platelets (Bld) [#/Vol] 256 10*3/uL 150-450 [facility] Serum or plasma calcium keyona urement (mass/volume)Ordered By: Dr. Mota on 08-11-2022 Calcium [Mass/Vol] 9.6 mg/dL 8.5-10.1 [facility] Serum or plasma creatinine m easurement (mass/volume)Ordered By: Dr. Mota on 08-11-2022 Creatinine [Mass/Vol] 1.33 mg/dL 0.55-1.02 [facility] Serum or plasma urea nitroge n measurement (mass/volume)Ordered By: Dr. Mota on 08-11-2022 Urea nitrogen [Mass/Vol] 45 mg/dL 7-18 [facility] Thin prep Papanicolaou smear with manual screeningOrdered By: Dr. Mota on 08-11-2022 Thin prep Papanicolaou smear with manual screening 6 5-15 [facility] No Panel InformationOrdered By: Nadja Mckeon on 08-05-2022 1.6 [facility] Whole blood prothrombin time Ordered By: Nadja Mckeon on 08-05-2022 PT Coag (Bld) [Time] 17.6 s 11.7-14.9 [facility] Basophil percentageOrdered B y: Dr. Morocho on 08-04-2022 Basophil percentage 76 mg/dL 74-106 [facility] Basophil percentage 141 mmol/L 136-145 [facility] Basophil percentage 4.3 mmol/L 3.5-5.1 [facility] Basophil percentage 108 mmol/L 98-107 [facility] Basophils (Bld) [#/Vol] 5.0 10*3/uL 4.4-11.0 [facility] Blood erythrocytes count (nu mber/volume)Ordered By: Dr. Morocho on 08-04-2022 RBC (Bld) [#/Vol] 3.66 10*6/uL 4.2-5.4 [facility] Blood hemoglobin measurement (mass/volume)Ordered By: Dr. Morocho on 08-04-2022 Hemoglobin (Bld) [Mass/Vol] 9.9 g/dL 12.0-15.0 [facility] Blood platelet mean volumeOr dered By: Dr. Morocho on 08-04-2022 Platelet mean volume (Bld) [Entitic vol] 10.0 fL 6.2-12.0 [facility] Determination of erythrocyte mean corpuscular volume (MCV)Ordered By: Dr. Morocho on 08-04-2022 MCV (RBC) [Entitic vol] 89.3 fL 81-99 [facility] Erythrocyte sedimentation ra teOrdered By: Dr. Morocho on 08-04-2022 ESR (Bld) [Velocity] 39 mm/h 0-30 [facility] Hematocrit Auto (Bld) [Volum e fraction]Ordered By: Dr. Morocho on 08-04-2022 Hematocrit (Bld) [Volume fraction] 32.7 % 37-47 [facility] MCHC Auto (RBC) [Mass/Vol]Or dered By: Dr. Morocho on 08-04-2022 MCHC (RBC) [Mass/Vol] 30.3 g/dL 32-36 [facility] No Panel InformationOrdered By: Dr. Morocho on 08-04-2022 27.0 pg 27.0-32.0 [facility] 15.5 % 11.6-14.6 [facility] 50.9 fl 35.1-43.9 [facility] 49 mL/min >60 [facility] 59 mL/min >60 [facility] 32.5 RATIO 10-20 [facility] 25.0 mmol/L 21.0-32.0 [facility] Platelets bldOrdered By: Dr. Morocho on 08-04-2022 Platelets (Bld) [#/Vol] 278 10*3/uL 150-450 [facility] Serum or plasma calcium keyona urement (mass/volume)Ordered By: Dr. Morocho on 08-04-2022 Calcium [Mass/Vol] 9.2 mg/dL 8.5-10.1 [facility] Serum or plasma creatinine m easurement (mass/volume)Ordered By: Dr. Morocho on 08-04-2022 Creatinine [Mass/Vol] 1.17 mg/dL 0.55-1.02 [facility] Serum or plasma urea nitroge n measurement (mass/volume)Ordered By: Dr. Morocho on 08-04-2022 Urea nitrogen [Mass/Vol] 38 mg/dL 7-18 [facility] Thin prep Papanicolaou smear with manual screeningOrdered By: Dr. Morocho on 08-04-2022 Thin prep Papanicolaou smear with manual screening 8 5-15 [facility] Vancomycin troughOrdered By: Dr. Morocho on 08-04-2022 Vancomycin trough [Mass/Vol] 16.8 ug/mL 5.0-15.0 [facility] Basophil percentageOrdered B y: Dr. Morocho on 07-28-2022 Basophil percentage 186 mg/dL 74-106 [facility] Basophil percentage 139 mmol/L 136-145 [facility] Basophil percentage 4.2 mmol/L 3.5-5.1 [facility] Basophil percentage 106 mmol/L 98-107 [facility] Basophils (Bld) [#/Vol] 6.7 10*3/uL 4.4-11.0 [facility] Blood erythrocytes count (nu mber/volume)Ordered By: Dr. Morocho on 07-28-2022 RBC (Bld) [#/Vol] 3.52 10*6/uL 4.2-5.4 [facility] Blood hemoglobin measurement (mass/volume)Ordered By: Dr. Morocho on 07-28-2022 Hemoglobin (Bld) [Mass/Vol] 9.5 g/dL 12.0-15.0 [facility] Blood platelet mean volumeOr dered By: Dr. Morocho on 07-28-2022 Platelet mean volume (Bld) [Entitic vol] 10.1 fL 6.2-12.0 [facility] Determination of erythrocyte mean corpuscular volume (MCV)Ordered By: Dr. Morocho on 07-28-2022 MCV (RBC) [Entitic vol] 89.2 fL 81-99 [facility] Erythrocyte sedimentation ra teOrdered By: Dr. Morocho on 07-28-2022 ESR (Bld) [Velocity] 44 mm/h 0-30 [facility] Hematocrit Auto (Bld) [Volum e fraction]Ordered By: Dr. Morocho on 07-28-2022 Hematocrit (Bld) [Volume fraction] 31.4 % 37-47 [facility] MCHC Auto (RBC) [Mass/Vol]Or dered By: Dr. Morocho on 07-28-2022 MCHC (RBC) [Mass/Vol] 30.3 g/dL 32-36 [facility] No Panel InformationOrdered By: Dr. Morocho on 07-28-2022 27.0 pg 27.0-32.0 [facility] 15.6 % 11.6-14.6 [facility] 50.7 fl 35.1-43.9 [facility] 48 mL/min >60 [facility] 58 mL/min >60 [facility] 21.2 RATIO 10-20 [facility] 25.0 mmol/L 21.0-32.0 [facility] Platelets bldOrdered By: Dr. Morocho on 07-28-2022 Platelets (Bld) [#/Vol] 250 10*3/uL 150-450 [facility] Serum or plasma calcium keyona urement (mass/volume)Ordered By: Dr. Morocho on 07-28-2022 Calcium [Mass/Vol] 9.3 mg/dL 8.5-10.1 [facility] Serum or plasma creatinine m easurement (mass/volume)Ordered By: Dr. Morocho on 07-28-2022 Creatinine [Mass/Vol] 1.18 mg/dL 0.55-1.02 [facility] Serum or plasma urea nitroge n measurement (mass/volume)Ordered By: Dr. Morocho on 07-28-2022 Urea nitrogen [Mass/Vol] 25 mg/dL 7-18 [facility] Thin prep Papanicolaou smear with manual screeningOrdered By: Dr. Morocho on 07-28-2022 Thin prep Papanicolaou smear with manual screening 8 5-15 [facility] Vancomycin troughOrdered By: Dr. Morocho on 07-28-2022 Vancomycin trough [Mass/Vol] 16.6 ug/mL 5.0-15.0 [facility] INR in Blood by Coagulation assayOrdered By: Nadja Mckeon on 07-27-2022 INR Coag (Bld) [Relative time] 2.2 {INR} [facility] No Panel InformationOrdered By: Nadja Mckeon on 07-27-2022 23.9 SECONDS 11.7-14.9 [facility] Basophil percentageOrdered B y: Dr. Morocho on 07-21-2022 Basophil percentage 156 mg/dL 74-106 [facility] Basophil percentage 140 mmol/L 136-145 [facility] Basophil percentage 4.4 mmol/L 3.5-5.1 [facility] Basophil percentage 109 mmol/L 98-107 [facility] Basophils (Bld) [#/Vol] 7.9 10*3/uL 4.4-11.0 [facility] Blood erythrocytes count (nu mber/volume)Ordered By: Dr. Morocho on 07-21-2022 RBC (Bld) [#/Vol] 3.58 10*6/uL 4.2-5.4 [facility] Blood hemoglobin measurement (mass/volume)Ordered By: Dr. Morocho on 07-21-2022 Hemoglobin (Bld) [Mass/Vol] 9.7 g/dL 12.0-15.0 [facility] Blood platelet mean volumeOr dered By: Dr. Morocho on 07-21-2022 Platelet mean volume (Bld) [Entitic vol] 10.4 fL 6.2-12.0 [facility] Determination of erythrocyte mean corpuscular volume (MCV)Ordered By: Dr. Morocho on 07-21-2022 MCV (RBC) [Entitic vol] 86.9 fL 81-99 [facility] Erythrocyte sedimentation ra teOrdered By: Dr. Morocho on 07-21-2022 ESR (Bld) [Velocity] 45 mm/h 0-30 [facility] Hematocrit Auto (Bld) [Volum e fraction]Ordered By: Dr. Morocho on 07-21-2022 Hematocrit (Bld) [Volume fraction] 31.1 % 37-47 [facility] MCHC Auto (RBC) [Mass/Vol]Or dered By: Dr. Morocho on 07-21-2022 MCHC (RBC) [Mass/Vol] 31.2 g/dL 32-36 [facility] No Panel InformationOrdered By: Dr. Morocho on 07-21-2022 27.1 pg 27.0-32.0 [facility] 14.9 % 11.6-14.6 [facility] 47.8 fl 35.1-43.9 [facility] 36 mL/min >60 [facility] 44 mL/min >60 [facility] 24.0 RATIO 10-20 [facility] 24.0 mmol/L 21.0-32.0 [facility] Platelets bldOrdered By: Dr. Morocho on 07-21-2022 Platelets (Bld) [#/Vol] 239 10*3/uL 150-450 [facility] Serum or plasma calcium keyona urement (mass/volume)Ordered By: Dr. Morocho on 07-21-2022 Calcium [Mass/Vol] 9.4 mg/dL 8.5-10.1 [facility] Serum or plasma creatinine m easurement (mass/volume)Ordered By: Dr. Morocho on 07-21-2022 Creatinine [Mass/Vol] 1.50 mg/dL 0.55-1.02 [facility] Serum or plasma urea nitroge n measurement (mass/volume)Ordered By: Dr. Morocho on 07-21-2022 Urea nitrogen [Mass/Vol] 36 mg/dL 7-18 [facility] Thin prep Papanicolaou smear with manual screeningOrdered By: Dr. Morocho on 07-21-2022 Thin prep Papanicolaou smear with manual screening 7 5-15 [facility] Vancomycin troughOrdered By: Dr. Morocho on 07-21-2022 Vancomycin trough [Mass/Vol] 16.4 ug/mL 5.0-15.0 [facility] No Panel InformationOrdered By: Dr. Morocho on 07-18-2022 No growth in 5 days. [facility] Anaerobic cultureOrdered By: Dr. Wolff on 07-16-2022 Bacteria identified Anaer cx Nom (Unsp spec) No anaerobic bacteria isolated. [facility] Bacteria identified Cx Nom ( Wound)Ordered By: Dr. Wolff on 07-15-2022 Routine wound culture Enterobacter cloac ae complex [facility] Routine wound culture Meth. resistant Staph. aureus [facility] Glucose Glucometer (BldC) [M ass/Vol]Ordered By: Dr. Jasmine on 07-15-2022 Glucose [Mass/Vol] 247 mg/dL 74-106 [facility] INR in Blood by Coagulation assayOrdered By: Dr. Jasmine on 07-15-2022 INR Coag (Bld) [Relative time] 1.4 {INR} [facility] No Panel InformationOrdered By: Dr. Jasmine on 07-15-2022 16.8 SECONDS 11.7-14.9 [facility] Serum or plasma transthyreti n measurement (mass/volume)Ordered By: Dr. Wolff on 07-14-2022 Prealbumin [Mass/Vol] 13.3 mg/dL 20.0-40.0 [facility] Vancomycin troughOrdered By: Dr. Lopez on 07-14-2022 Vancomycin trough [Mass/Vol] 13.8 ug/mL 5.0-15.0 [facility] Basophil percentageOrdered B y: Dr. Wolff on 07-13-2022 Basophil percentage 122 mg/dL 74-106 [facility] Basophil percentage 138 mmol/L 136-145 [facility] Basophil percentage 4.3 mmol/L 3.5-5.1 [facility] Basophil percentage 107 mmol/L 98-107 [facility] Basophils (Bld) [#/Vol] 11.5 10*3/uL 4.4-11.0 [facility] Blood erythrocytes count (nu mber/volume)Ordered By: Dr. Wolff on 07-13-2022 RBC (Bld) [#/Vol] 3.80 10*6/uL 4.2-5.4 [facility] Blood hemoglobin measurement (mass/volume)Ordered By: Dr. Wolff on 07-13-2022 Hemoglobin (Bld) [Mass/Vol] 10.3 g/dL 12.0-15.0 [facility] Blood platelet mean volumeOr dered By: Dr. Wolff on 07-13-2022 Platelet mean volume (Bld) [Entitic vol] 9.7 fL 6.2-12.0 [facility] Determination of erythrocyte mean corpuscular volume (MCV)Ordered By: Dr. Wolff on 07-13-2022 MCV (RBC) [Entitic vol] 88.9 fL 81-99 [facility] Glucose Glucometer (dC) [M ass/Vol]Ordered By: Dr. Jasmine on 07-13-2022 Glucose [Mass/Vol] 158 mg/dL 74-106 [facility] Gram stain for investigation of transfusion reactionOrdered By: Dr. Wolff on 07-13-2022 Microscopic observation Gram stain Nom (Unsp spec) [facility] Hematocrit Auto (Bld) [Volum e fraction]Ordered By: Dr. Wolff on 07-13-2022 Hematocrit (Bld) [Volume fraction] 33.8 % 37-47 [facility] MCHC Auto (RBC) [Mass/Vol]Or dered By: Dr. Wolff on 07-13-2022 MCHC (RBC) [Mass/Vol] 30.5 g/dL 32-36 [facility] No Panel InformationOrdered By: Dr. Wolff on 07-13-2022 27.1 pg 27.0-32.0 [facility] 14.6 % 11.6-14.6 [facility] 47.3 fl 35.1-43.9 [facility] 43 mL/min >60 [facility] 52 mL/min >60 [facility] 30.15 ml/min [facility] 25.2 RATIO 10-20 [facility] 27.0 mmol/L 21.0-32.0 [facility] Platelets bldOrdered By: Dr. Wolff on 07-13-2022 Platelets (Bld) [#/Vol] 275 10*3/uL 150-450 [facility] Serum or plasma calcium keyona urement (mass/volume)Ordered By: Dr. Wolff on 07-13-2022 Calcium [Mass/Vol] 9.2 mg/dL 8.5-10.1 [facility] Serum or plasma creatinine m easurement (mass/volume)Ordered By: Dr. Wolff on 07-13-2022 Creatinine [Mass/Vol] 1.31 mg/dL 0.55-1.02 [facility] Serum or plasma urea nitroge n measurement (mass/volume)Ordered By: Dr. Wolff on 07-13-2022 Urea nitrogen [Mass/Vol] 33 mg/dL 7-18 [facility] Thin prep Papanicolaou smear with manual screeningOrdered By: Dr. Wolff on 07-13-2022 Thin prep Papanicolaou smear with manual screening 4 5-15 [facility] Absolute lymphocyte countOrd ered By: Dr. Lopez on 07-12-2022 Lymphocytes Auto (Unsp spec) [#/Vol] 1.94 10*3/uL 0.83-4.51 [facility] Basophil percentageOrdered B y: Dr. Lopez on 07-12-2022 Basophils (Bld) [#/Vol] 4.2 10*3/uL 2.0-7.7 [facility] Basophils/100 WBC (Bld) 61.5 % 47-70 [facility] Basophils/100 WBC (Bld) 4.0 % 0-5 [facility] Basophils/100 WBC (Bld) 0.6 % 0-1 [facility] Blood lymphocytes/100 leukoc ytesOrdered By: Dr. Lopez on 07-12-2022 Lymphocytes/100 WBC (Bld) 28.7 % 19-41 [facility] Blood monocytes/100 leukocyt esOrdered By: Dr. Lopez on 07-12-2022 Monocytes/100 WBC (Bld) 4.9 % 0-10 [facility] INR in Blood by Coagulation assayOrdered By: Dr. Guzman on 07-12-2022 INR Coag (Bld) [Relative time] 1.3 {INR} [facility] No Panel InformationOrdered By: Dr. Lopez on 07-12-2022 0.300 % 0.0-0.9 [facility] 0 % 0-5 [facility] No Panel InformationOrdered By: Dr. Guzman on 07-12-2022 16.0 SECONDS 11.7-14.9 [facility] Vancomycin troughOrdered By: Dr. Guzman on 07-11-2022 Vancomycin trough [Mass/Vol] 11.6 ug/mL 5.0-15.0 [facility] No Panel InformationOrdered By: Dr. Guzman on 07-10-2022 0.94 uIU/mL 0.358-3.74 [facility] Whole blood hemoglobin A1c/t otal hemoglobin ratio (mass fraction)Ordered By: Dr. Guzman on 07-10-2022 HbA1c (Bld) [Mass fraction] 6.3 % 3.8-5.6 [facility] Absolute lymphocyte countOrd ered By: Dr. Gonzalez on 07-09-2022 Lymphocytes Auto (Unsp spec) [#/Vol] 1.42 10*3/uL 0.83-4.51 [facility] Basophil percentageOrdered B y: Dr. Gonzalez on 07-09-2022 Basophil percentage 0.9 mmol/L 0.4-2.0 [facility] Basophils/100 WBC (Bld) 0.5 % 0-1 [facility] Chloride [Moles/Vol] 101 mmol/L 98-107 [facility] Eosinophils/100 WBC (Bld) 2.0 % 0-5 [facility] Glucose [Mass/Vol] 167 mg/dL 74-106 [facility] Comment on above: Fasting Glucose resu lt greater than or equal to 126 mg/dL suggests DIABETES MELLITUS per A.D.A. criteria. Lactate [Moles/Vol] 2.7 mmol/L 0.4-2.0 [facility] Comment on above: Critical Result(s) C alled at: 16:40:35 07/09/2022 by: Bartolo Benavides RN ED . Results read back by same. Neutrophils (Bld) [#/Vol] 6.7 10*3/uL 2.0-7.7 [facility] Neutrophils/100 WBC (Bld) 75.9 % 47-70 [facility] Potassium [Moles/Vol] 4.5 mmol/L 3.5-5.1 [facility] Sodium [Moles/Vol] 135 mmol/L 136-145 [facility] WBC (Bld) [#/Vol] 8.8 10*3/uL 4.4-11.0 [facility] Basophil percentageOrdered B y: Dr. Guzman on 07-09-2022 Basophil percentage 4.3 mg/dL 2.5-4.9 [facility] Blood erythrocytes count (nu mber/volume)Ordered By: Dr. Gonzalez on 07-09-2022 RBC (Bld) [#/Vol] 4.37 10*6/uL 4.2-5.4 [facility] Blood hemoglobin measurement (mass/volume)Ordered By: Dr. Gonzalez on 07-09-2022 Hemoglobin (Bld) [Mass/Vol] 12.0 g/dL 12.0-15.0 [facility] Blood lymphocytes/100 leukoc ytesOrdered By: Dr. Gonzalez on 07-09-2022 Lymphocytes/100 WBC (Bld) 16.2 % 19-41 [facility] Blood monocytes/100 leukocyt esOrdered By: Dr. Gonzalez on 07-09-2022 Monocytes/100 WBC (Bld) 4.9 % 0-10 [facility] Blood platelet mean volumeOr dered By: Dr. Gonzalez on 07-09-2022 Platelet mean volume (Bld) [Entitic vol] 10.0 fL 6.2-12.0 [facility] Determination of erythrocyte mean corpuscular volume (MCV)Ordered By: Dr. Gonzalez on 07-09-2022 MCV (RBC) [Entitic vol] 86.3 fL 81-99 [facility] Hematocrit Auto (Bld) [Volum e fraction]Ordered By: Dr. Gonzalez on 07-09-2022 Hematocrit (Bld) [Volume fraction] 37.7 % 37-47 [facility] INR in Blood by Coagulation assayOrdered By: Dr. Guzman on 07-09-2022 INR Coag (Bld) [Relative time] 5.0 {INR} [facility] Comment on above: CRITICAL VALUE VERIF IED. CALLED TO [id number] Angie Gaines.RESULTS READ BACK BY SAME . Laboratory - Chemistry and C hemistry - challengeOrdered By: Dr. Gonzalez on 07-09-2022 CO2 [Moles/Vol] 25.0 mmol/L 21.0-32.0 [facility] Urea nitrogen/Creatinine [Mass ratio] 29.2 mg/mg 10-20 [facility] Laboratory - Chemistry and C hemistry - challengeOrdered By: Dr. Guzman on 07-09-2022 Magnesium [Mass/Vol] 2.3 mg/dL 1.6-2.6 [facility] Laboratory - CoagulationOrde red By: Dr. Guzman on 07-09-2022 PT Coag (PPP) [Time] 46.0 s 11.7-14.9 [facility] Laboratory - Hematology and Cell countsOrdered By: Dr. Gonzalez on 07-09-2022 Erythrocyte distribution width (RBC) [Entitic vol] 48.1 fL 35.1-43.9 [facility] Erythrocyte distribution width (RBC) [Ratio] 15.2 % 11.6-14.6 [facility] Immature granulocytes/100 WBC (Bld) 0.500 % 0.0-0.9 [facility] Comment on above: IG% - Immature Granu locytes (promyelocytes, myelocytes and metamyelocytes) > 1% indicates that a LEFT SHIFT is Present. MCH (RBC) [Entitic mass] 27.5 pg 27.0-32.0 [facility] Nucleated RBC/100 WBC (Bld) [Ratio] 0 % 0-5 [facility] Laboratory - Microbiology an d Antimicrobial susceptibilityOrdered By: Dr. Barrera on 07-09-2022 Bacteria identified Cx Nom (Bld) Meth. resistant Staph. aureus [facility] MCHC Auto (RBC) [Mass/Vol]Or dered By: Dr. Gonzalez on 07-09-2022 MCHC (RBC) [Mass/Vol] 31.8 g/dL 32-36 [facility] No Panel InformationOrdered By: Dr. Gonzalez on 07-09-2022 Estimated GFR (MDRD) Amer 27 mL/min >60 [facility] Comment on above: GFR Calc Estimated GFR (MDRD) Non-Af Amer 22 mL/min >60 [facility] Comment on above: Non- GFR Calc No Panel InformationOrdered By: Dr. Guzman on 07-09-2022 2.3 mg/dL 1.6-2.6 [facility] No Panel InformationOrdered By: Dr. Barrera on 07-09-2022 Meth. resistant Staph. aureus [facility] Platelets bldOrdered By: Dr. Gonzalez on 07-09-2022 Platelets (Bld) [#/Vol] 369 10*3/uL 150-450 [facility] Serum or plasma calcium keyona urement (mass/volume)Ordered By: Dr. Gonzalez on 07-09-2022 Calcium [Mass/Vol] 9.9 mg/dL 8.5-10.1 [facility] Serum or plasma creatinine m easurement (mass/volume)Ordered By: Dr. Gonzalez on 07-09-2022 Creatinine [Mass/Vol] 2.33 mg/dL 0.55-1.02 [facility] Comment on above: The validity of the calculated GFR & GFRAA in patients over 70 years has not been determined. Clinical correlation is essential. Serum or plasma urea nitroge n measurement (mass/volume)Ordered By: Dr. Gonzalez on 07-09-2022 Urea nitrogen [Mass/Vol] 68 mg/dL 7-18 [facility] Thin prep Papanicolaou smear with manual screeningOrdered By: Dr. Gonzalez on 07-09-2022 Thin prep Papanicolaou smear with manual screening 9 5-15 [facility] Bacteria identified Cx Nom ( Wound)Ordered By: Dr. Barrera on 07-08-2022 Wound Culture Meth. resistant Staph. aureus [facility] Routine wound culture Meth. resistant Staph. aureus [facility] Gram stain for investigation of transfusion reactionOrdered By: Dr. Barrera on 07-07-2022 Microscopic observation Gram stain Nom (Unsp spec) [facility] Absolute lymphocyte countOrd ered By: Dr. Barrera on 07-06-2022 Lymphocytes Auto (Unsp spec) [#/Vol] 0.75 10*3/uL 0.83-4.51 [facility] Basophil percentageOrdered B y: Dr. Barrera on 07-06-2022 Basophil percentage 2.3 mmol/L 0.4-2.0 [facility] Basophils (Bld) [#/Vol] 11.9 10*3/uL 4.4-11.0 [facility] Basophils (Bld) [#/Vol] 10.4 10*3/uL 2.0-7.7 [facility] Basophils/100 WBC (Bld) 0.3 % 0-1 [facility] Basophils/100 WBC (Bld) 88.1 % 47-70 [facility] Eosinophils/100 WBC (Bld) 0.3 % 0-5 [facility] Lactate [Moles/Vol] 2.3 mmol/L 0.4-2.0 [facility] Comment on above: Critical Result(s) C alled at: 16:20:43 07/06/2022 to chris by: FABY GARZA. Results read back by same. Neutrophils (Bld) [#/Vol] 10.4 10*3/uL 2.0-7.7 [facility] Neutrophils/100 WBC (Bld) 88.1 % 47-70 [facility] WBC (Bld) [#/Vol] 11.9 10*3/uL 4.4-11.0 [facility] Basophil percentage 168 mg/dL 74-106 [facility] Basophil percentage 135 mmol/L 136-145 [facility] Basophil percentage 4.8 mmol/L 3.5-5.1 [facility] Basophil percentage 102 mmol/L 98-107 [facility] Chloride [Moles/Vol] 102 mmol/L 98-107 [facility] Glucose [Mass/Vol] 168 mg/dL 74-106 [facility] Comment on above: Fasting Glucose resu lt greater than or equal to 126 mg/dL suggests DIABETES MELLITUS per A.D.A. criteria. Potassium [Moles/Vol] 4.8 mmol/L 3.5-5.1 [facility] Comment on above: Moderate Hemolysis, Result may be falsely increased. Sodium [Moles/Vol] 135 mmol/L 136-145 [facility] Blood erythrocytes count (nu mber/volume)Ordered By: Dr. Barrera on 07-06-2022 RBC (Bld) [#/Vol] 4.32 10*6/uL 4.2-5.4 [facility] Blood hemoglobin measurement (mass/volume)Ordered By: Dr. Barrera on 07-06-2022 Hemoglobin (Bld) [Mass/Vol] 11.7 g/dL 12.0-15.0 [facility] Blood lymphocytes/100 leukoc ytesOrdered By: Dr. Barrera on 07-06-2022 Lymphocytes/100 WBC (Bld) 6.3 % 19-41 [facility] Blood monocytes/100 leukocyt esOrdered By: Dr. Barrera on 07-06-2022 Monocytes/100 WBC (Bld) 4.3 % 0-10 [facility] Blood platelet mean volumeOr dered By: Dr. Barrera on 07-06-2022 Platelet mean volume (Bld) [Entitic vol] 10.1 fL 6.2-12.0 [facility] Determination of erythrocyte mean corpuscular volume (MCV)Ordered By: Dr. Barrera on 07-06-2022 MCV (RBC) [Entitic vol] 86.8 fL 81-99 [facility] Hematocrit Auto (Bld) [Volum e fraction]Ordered By: Dr. Barrera on 07-06-2022 Hematocrit (Bld) [Volume fraction] 37.5 % 37-47 [facility] Laboratory - Chemistry and C hemistry - challengeOrdered By: Dr. Barrera on 07-06-2022 CO2 [Moles/Vol] 25.0 mmol/L 21.0-32.0 [facility] Urea nitrogen/Creatinine [Mass ratio] 29.2 mg/mg 10-20 [facility] Laboratory - Hematology and Cell countsOrdered By: Dr. Barrera on 07-06-2022 Erythrocyte distribution width (RBC) [Entitic vol] 48.4 fL 35.1-43.9 [facility] Erythrocyte distribution width (RBC) [Ratio] 15.1 % 11.6-14.6 [facility] Immature granulocytes/100 WBC (Bld) 0.700 % 0.0-0.9 [facility] Comment on above: IG% - Immature Granu locytes (promyelocytes, myelocytes and metamyelocytes) > 1% indicates that a LEFT SHIFT is Present. MCH (RBC) [Entitic mass] 27.1 pg 27.0-32.0 [facility] Nucleated RBC/100 WBC (Bld) [Ratio] 0 % 0-5 [facility] Auto (RBC) [Mass/Vol]Or dered By: Dr. Barrera on 07-06-2022 MCHC (RBC) [Mass/Vol] 31.2 g/dL 32-36 [facility] No Panel InformationOrdered By: Dr. Barrera on 07-06-2022 27.1 pg 27.0-32.0 [facility] 15.1 % 11.6-14.6 [facility] 48.4 fl 35.1-43.9 [facility] 0.700 % 0.0-0.9 [facility] 0 % 0-5 [facility] Estimated GFR (MDRD) Amer 52 mL/min >60 [facility] Comment on above: GFR Calc Estimated GFR (MDRD) Non-Af Amer 43 mL/min >60 [facility] Comment on above: Non- GFR Calc 43 mL/min >60 [facility] 52 mL/min >60 [facility] 29.2 RATIO 10-20 [facility] 25.0 mmol/L 21.0-32.0 [facility] Platelets bldOrdered By: Dr. Barrera on 07-06-2022 Platelets (Bld) [#/Vol] 281 10*3/uL 150-450 [facility] Serum or plasma calcium keyona urement (mass/volume)Ordered By: Dr. Barrera on 07-06-2022 Calcium [Mass/Vol] 9.7 mg/dL 8.5-10.1 [facility] Serum or plasma creatinine m easurement (mass/volume)Ordered By: Dr. Barrera on 07-06-2022 Creatinine [Mass/Vol] 1.30 mg/dL 0.55-1.02 [facility] Comment on above: The validity of the calculated GFR & GFRAA in patients over 70 years has not been determined. Clinical correlation is essential. Serum or plasma urea nitroge n measurement (mass/volume)Ordered By: Dr. Barrera on 07-06-2022 Urea nitrogen [Mass/Vol] 38 mg/dL 7-18 [facility] Thin prep Papanicolaou smear with manual screeningOrdered By: Dr. Barrera on 07-06-2022 Thin prep Papanicolaou smear with manual screening 8 5-15 [facility] INR in Blood by Coagulation assayOrdered By: Dr. Reagan on 07-03-2022 INR Coag (Bld) [Relative time] 2.5 {INR} [facility] Laboratory - CoagulationOrde red By: Dr. Reagan on 07-03-2022 PT Coag (PPP) [Time] 26.4 s 11.7-14.9 [facility] No Panel InformationOrdered By: Dr. Reagan on 07-03-2022 26.4 SECONDS 11.7-14.9 [facility] Absolute lymphocyte countOrd ered By: Dr. Reagan on 06-04-2022 Lymphocytes Auto (Unsp spec) [#/Vol] 1.82 10*3/uL 0.83-4.51 [facility] Basophil percentageOrdered B y: Dr. Reagan on 06-04-2022 Basophil percentage 102 mg/dL 74-106 [facility] Basophil percentage 8.2 g/dL 6.4-8.2 [facility] Basophil percentage 0.50 mg/dL 0.20-1.00 [facility] Basophil percentage 185 mg/dL <200 [facility] Basophil percentage 158 mg/dL <199 [facility] Basophil percentage 139 mmol/L 136-145 [facility] Basophil percentage 4.4 mmol/L 3.5-5.1 [facility] Basophil percentage 106 mmol/L 98-107 [facility] Basophils (Bld) [#/Vol] 9.2 10*3/uL 4.4-11.0 [facility] Basophils (Bld) [#/Vol] 6.4 10*3/uL 2.0-7.7 [facility] Basophils/100 WBC (Bld) 0.4 % 0-1 [facility] Basophils/100 WBC (Bld) 70.1 % 47-70 [facility] Basophils/100 WBC (Bld) 3.6 % 0-5 [facility] Bilirubin [Mass/Vol] 0.50 mg/dL 0.20-1.00 [facility] Comment on above: For patients on eltr ombopag therapy, use of Dimension [place] TBIL is not recommended. Chloride [Moles/Vol] 106 mmol/L 98-107 [facility] Cholesterol [Mass/Vol] 185 mg/dL <200 [facility] Comment on above: <200 mg/dL Desirable 200-240 mg/dL Borderline >240 mg/dL High Risk Eosinophils/100 WBC (Bld) 3.6 % 0-5 [facility] Glucose [Mass/Vol] 102 mg/dL 74-106 [facility] Comment on above: Fasting Glucose resu lt from 100 to 125 mg/dL suggests IMPAIRED HOMEOSTASIS per A.D.A. criteria. Neutrophils (Bld) [#/Vol] 6.4 10*3/uL 2.0-7.7 [facility] Neutrophils/100 WBC (Bld) 70.1 % 47-70 [facility] Potassium [Moles/Vol] 4.4 mmol/L 3.5-5.1 [facility] Protein [Mass/Vol] 8.2 g/dL 6.4-8.2 [facility] Sodium [Moles/Vol] 139 mmol/L 136-145 [facility] Triglyceride [Mass/Vol] 158 mg/dL <199 [facility] Comment on above: The drugs N-Acetylcy steine and Metamizole may falsely depress this assay.Serum Triglycerides Reference Interval Normal <150 mg/dL Borderline high 150 - 199 mg/dL High 200 - 499 mg/dL Very High > or = 500 mg/dL WBC (Bld) [#/Vol] 9.2 10*3/uL 4.4-11.0 [facility] Blood erythrocytes count (nu mber/volume)Ordered By: Dr. Reagan on 06-04-2022 RBC (Bld) [#/Vol] 4.30 10*6/uL 4.2-5.4 [facility] Blood hemoglobin measurement (mass/volume)Ordered By: Dr. Reagan on 06-04-2022 Hemoglobin (Bld) [Mass/Vol] 11.8 g/dL 12.0-15.0 [facility] Blood lymphocytes/100 leukoc ytesOrdered By: Dr. Reagan on 06-04-2022 Lymphocytes/100 WBC (Bld) 19.9 % 19-41 [facility] Blood monocytes/100 leukocyt esOrdered By: Dr. Reagan on 06-04-2022 Monocytes/100 WBC (Bld) 5.7 % 0-10 [facility] Blood platelet mean volumeOr dered By: Dr. Reagan on 06-04-2022 Platelet mean volume (Bld) [Entitic vol] 10.3 fL 6.2-12.0 [facility] Determination of erythrocyte mean corpuscular volume (MCV)Ordered By: Dr. Reagan on 06-04-2022 MCV (RBC) [Entitic vol] 88.6 fL 81-99 [facility] Hematocrit Auto (Bld) [Volum e fraction]Ordered By: Dr. Reagan on 06-04-2022 Hematocrit (Bld) [Volume fraction] 38.1 % 37-47 [facility] Laboratory - Chemistry and C hemistry - challengeOrdered By: Dr. Reagan on 06-04-2022 ALP [Catalytic activity/Vol] 65 U/L 45-117 [facility] ALT [Catalytic activity/Vol] 27 U/L 13-56 [facility] CO2 [Moles/Vol] 27.0 mmol/L 21.0-32.0 [facility] Globulin (S) [Mass/Vol] 4.5 g/dL 2.2-4.2 [facility] Urea nitrogen/Creatinine [Mass ratio] 29.4 mg/mg -20 [facility] Laboratory - Hematology and Cell countson 06-04-2022 HbA1c (Bld) [Mass fraction] 6.1 % 4.2-6.3 [facility] Laboratory - Hematology and Cell countsOrdered By: Dr. Reagan on 06-04-2022 Erythrocyte distribution width (RBC) [Entitic vol] 48.9 fL 35.1-43.9 [facility] Erythrocyte distribution width (RBC) [Ratio] 15.3 % 11.6-14.6 [facility] Immature granulocytes/100 WBC (Bld) 0.300 % 0.0-0.9 [facility] Comment on above: IG% - Immature Granu locytes (promyelocytes, myelocytes and metamyelocytes) > 1% indicates that a LEFT SHIFT is Present. MCH (RBC) [Entitic mass] 27.4 pg 27.0-32.0 [facility] Nucleated RBC/100 WBC (Bld) [Ratio] 0 % 0-5 [facility] [Mass/Vol]Or dered By: Dr. Reagan on 06-04-2022 MCHC (RBC) [Mass/Vol] 31.0 g/dL 32-36 [facility] No Panel Informationon 06-04 6.1 % 4.2-6.3 [facility] No Panel InformationOrdered By: Dr. Reagan on 06-04-2022 Estimated GFR (MDRD) Amer 49 mL/min >60 [facility] Comment on above: GFR Calc Estimated GFR (MDRD) Non-Af Amer 41 mL/min >60 [facility] Comment on above: Non- GFR Calc 27.4 pg 27.0-32.0 [facility] 15.3 % 11.6-14.6 [facility] 48.9 fl 35.1-43.9 [facility] 0.300 % 0.0-0.9 [facility] 0 % 0-5 [facility] 41 mL/min >60 [facility] 49 mL/min >60 [facility] 29.4 RATIO 10-20 [facility] 4.5 g/dL 2.2-4.2 [facility] 65 U/L 45-117 [facility] 27 U/L 13-56 [facility] 27.0 mmol/L 21.0-32.0 [facility] Platelets bldOrdered By: Dr. Reagan on 06-04-2022 Platelets (Bld) [#/Vol] 305 10*3/uL 150-450 [facility] Serum or plasma albumin keyona urement (mass/volume)Ordered By: Dr. Reagan on 06-04-2022 Albumin [Mass/Vol] 3.7 g/dL 3.2-5.0 [facility] Serum or plasma albumin/glob ulin mass ratioOrdered By: Dr. Reagan on 06-04-2022 Albumin/Globulin [Mass ratio] 0.8 {ratio} 0.9-2.4 [facility] Serum or plasma calcium keyona urement (mass/volume)Ordered By: Dr. Reagan on 06-04-2022 Calcium [Mass/Vol] 10.2 mg/dL 8.5-10.1 [facility] Serum or plasma cholesterol in HDL measurement (mass/volume)Ordered By: Dr. Reagan on 06-04-2022 Cholesterol in HDL [Mass/Vol] 62 mg/dL >40 [facility] Comment on above: The drugs N-Acetylcy steine and Metamizole may falsely depress this assay. Reference Range HDL <40 mg/dL Low HDL Cholesterol HDL >or= 60 mg/dL High HDL Cholesterol Serum or plasma cholesterol in VLDL measurement (mass/volume)Ordered By: Dr. Reagan on 06-04-2022 Cholesterol in VLDL [Mass/Vol] 32 mg/dL 5-40 [facility] Serum or plasma creatinine m easurement (mass/volume)Ordered By: Dr. Reagan on 06-04-2022 Creatinine [Mass/Vol] 1.36 mg/dL 0.55-1.02 [facility] Comment on above: The validity of the calculated GFR & GFRAA in patients over 70 years has not been determined. Clinical correlation is essential. Serum or plasma low density lipoprotein (LDL) cholesterol measurement (mass/volume)Ordered By: Dr. Reagan on 06-04-2022 Cholesterol in LDL [Mass/Vol] 91 mg/dL 0-130 [facility] Serum or plasma urea nitroge n measurement (mass/volume)Ordered By: Dr. Reagan on 06-04-2022 Urea nitrogen [Mass/Vol] 40 mg/dL 7-18 [facility] Thin prep Papanicolaou smear with manual screeningOrdered By: Dr. Reagan on 06-04-2022 Thin prep Papanicolaou smear with manual screening 22 U/L 15-37 [facility] Thin prep Papanicolaou smear with manual screening 6 5-15 [facility] Basophil percentageOrdered B y: Dr. Reagan on 03-03-2022 Chloride [Moles/Vol] 110 mmol/L 98-107 [facility] Glucose [Mass/Vol] 130 mg/dL 74-106 [facility] Comment on above: Fasting Glucose resu lt greater than or equal to 126 mg/dL suggests DIABETES MELLITUS per A.D.A. criteria. Potassium [Moles/Vol] 4.6 mmol/L 3.5-5.1 [facility] Sodium [Moles/Vol] 142 mmol/L 136-145 [facility] Laboratory - Chemistry and C hemistry - challengeOrdered By: Dr. Reagan on 03-03-2022 CO2 [Moles/Vol] 26.0 mmol/L 21.0-32.0 [facility] Urea nitrogen/Creatinine [Mass ratio] 24.4 mg/mg 03-04 [facility] Laboratory - Hematology and Cell countson 03-03-2022 HbA1c (Bld) [Mass fraction] 3.4 % 4.2-6.3 [facility] No Panel InformationOrdered By: Dr. Reagan on 03-03-2022 Estimated GFR (MDRD) Amer 58 mL/min >60 [facility] Comment on above: GFR Calc Estimated GFR (MDRD) Non-Af Amer 48 mL/min >60 [facility] Comment on above: Non- GFR Calc Vitamin D 25-Hydroxy 43.2 ng/mL [facility] Comment on above: Vitamin D 25(OH) Sta tus Range Deficiency <20 ng/mL (50nmol/L) Insufficiency 20 - 30 ng/mL (50 - 75 nmol/L) Sufficiency 30 - 100 ng/mL (75 - 250 nmol/L) Toxicity >100 ng/mL (>250 nmol/L) Serum or plasma calcium keyona urement (mass/volume)Ordered By: Dr. Reagan on 03-03-2022 Calcium [Mass/Vol] 9.5 mg/dL 8.5-10.1 [facility] Serum or plasma creatinine m easurement (mass/volume)Ordered By: Dr. Reagan on 03-03-2022 Creatinine [Mass/Vol] 1.19 mg/dL 0.55-1.02 [facility] Comment on above: The validity of the calculated GFR & GFRAA in patients over 70 years has not been determined. Clinical correlation is essential. Serum or plasma urea nitroge n measurement (mass/volume)Ordered By: Dr. Reagan on 03-03-2022 Urea nitrogen [Mass/Vol] 29 mg/dL 7-18 [facility] Thin prep Papanicolaou smear with manual screeningOrdered By: Dr. Reagan on 03-03-2022 Thin prep Papanicolaou smear with manual screening 6 5-15 [facility] Whole blood hemoglobin A1c/t otal hemoglobin ratio (mass fraction)Ordered By: Dr. Reagan on 03-03-2022 HbA1c (Bld) [Mass fraction] 6.1 % 3.8-5.6 [facility] Comment on above: Normal < 5.7 % Predi abetic 5.7 - 6.4 % Diabetic >or= 6.5 % Please note range changes. Absolute lymphocyte counton 12-02-2021 Lymphocytes Auto (Unsp spec) [#/Vol] 1.56 10*3/uL 0.83-4.51 [facility] Work Phone: Basophil percentageon 2021 Basophils/100 WBC (Bld) 0.7 % 0-1 [facility] Work Phone: [phone] Bilirubin [Mass/Vol] 0.50 mg/dL 0.20-1.00 [facility] Work Phone: [phone] Comment on above: For patients on eltr ombopag therapy, use of Dimension [place] TBIL is not recommended. Chloride [Moles/Vol] 107 mmol/L 98-107 [facility] Work Phone: [phone] Eosinophils/100 WBC (Bld) 3.2 % 0-5 [facility] Work Phone: [phone] Glucose [Mass/Vol] 147 mg/dL 74-106 [facility] Work Phone: [phone] Comment on above: Fasting Glucose resu lt greater than or equal to 126 mg/dL suggests DIABETES MELLITUS per A.D.A. criteria. Neutrophils (Bld) [#/Vol] 6.3 10*3/uL 2.0-7.7 [facility] Work Phone: [phone] Neutrophils/100 WBC (Bld) 71.7 % 47-70 [facility] Work Phone: [phone] Potassium [Moles/Vol] 4.1 mmol/L 3.5-5.1 [facility] Work Phone: [phone] Protein [Mass/Vol] 7.8 g/dL 6.4-8.2 [facility] Work Phone: Sodium [Moles/Vol] 142 mmol/L 136-145 [facility] Work Phone: WBC (Bld) [#/Vol] 8.8 10*3/uL 4.4-11.0 [facility] Work Phone: Blood erythrocytes count (nu mber/volume)on 12-02-2021 RBC (Bld) [#/Vol] 4.36 10*6/uL 4.2-5.4 [facility]: Blood hemoglobin measurement (mass/volume)on 12-02-2021 Hemoglobin (Bld) [Mass/Vol] 11.7 g/dL 12.0-15.0 [facility] Work Phone: Blood lymphocytes/100 leukoc yteson 12-02-2021 Lymphocytes/100 WBC (Bld) 17.8 % 19-41 [facility] Work Phone: Blood monocytes/100 leukocyt eson 12-02-2021 Monocytes/100 WBC (Bld) 5.1 % 0-10 [facility] Work Phone: Blood platelet mean volumeon 12-02-2021 Platelet mean volume (Bld) [Entitic vol] 10.8 fL 6.2-12.0 [facility] Work Phone: Determination of erythrocyte mean corpuscular volume (MCV)on 12-02-2021 MCV (RBC) [Entitic vol] 87.2 fL 81-99 [facility] Work Phone: Hematocrit Auto (Bld) [Volum e fraction]on 12-02-2021 Hematocrit (Bld) [Volume fraction] 38.0 % 37-47 [facility] Work Phone: Laboratory - Chemistry and C hemistry - challengeon 12-02-2021 ALP [Catalytic activity/Vol] 75 U/L 45-117 [facility] Work Phone: ALT [Catalytic activity/Vol] 23 U/L 13-56 [facility] Work Phone: CO2 [Moles/Vol] 27.0 mmol/L 21.0-32.0 [facility] Work Phone: Globulin (S) [Mass/Vol] 4.3 g/dL 2.2-4.2 [facility] Work Phone: Urea nitrogen/Creatinine [Mass ratio] 29.3 mg/mg 10-20 [facility] Work Phone: Laboratory - Hematology and Cell countson 12-02-2021 Erythrocyte distribution width (RBC) [Entitic vol] 46.9 fL 35.1-43.9 [facility] Work Phone: Erythrocyte distribution width (RBC) [Ratio] 14.6 % 11.6-14.6 [facility] Work Phone: Immature granulocytes/100 WBC (Bld) 1.500 % 0.0-0.9 [facility] Work Phone: Comment on above: IG% - Immature Granu locytes (promyelocytes, myelocytes and metamyelocytes) > 1% indicates that a LEFT SHIFT is Present. MCH (RBC) [Entitic mass] 26.8 pg 27.0-32.0 [facility] Work Phone: Nucleated RBC/100 WBC (Bld) [Ratio] 0 % 0-5 [facility] Work Phone: MCHC Auto (RBC) [Mass/Vol]on 12-02-2021 MCHC (RBC) [Mass/Vol] 30.8 g/dL 32-36 [facility]: No Panel Informationon 12-02 Estimated GFR (MDRD) Amer 51 mL/min >60 [facility] Work Phone: Comment on above: GFR Calc Estimated GFR (MDRD) Non-Af Amer 42 mL/min >60 [facility] Work Phone: Comment on above: Non- GFR Calc Platelets bldon 12-02-2021 Platelets (Bld) [#/Vol] 271 10*3/uL 150-450 [facility] Work Phone: Serum or plasma albumin keyona urement (mass/volume)on 12-02-2021 Albumin [Mass/Vol] 3.5 g/dL 3.2-5.0 [facility] Work Phone: Serum or plasma albumin/glob ulin mass ratioon 12-02-2021 Albumin/Globulin [Mass ratio] 0.8 {ratio} 0.9-2.4 [facility] Work Phone: Serum or plasma calcium keyona urement (mass/volume)on 12-02-2021 Calcium [Mass/Vol] 9.6 mg/dL 8.5-10.1 [facility] Work Phone: Serum or plasma creatinine m easurement (mass/volume)on 12-02-2021 Creatinine [Mass/Vol] 1.33 mg/dL 0.55-1.02 [facility] Work Phone: Comment on above: The validity of the calculated GFR & GFRAA in patients over 70 years has not been determined. Clinical correlation is essential. Serum or plasma urea nitroge n measurement (mass/volume)on 12-02-2021 Urea nitrogen [Mass/Vol] 39 mg/dL 7-18 [facility] Work Phone: Thin prep Papanicolaou smear with manual screeningon 12-02-2021 Thin prep Papanicolaou smear with manual screening 18 U/L 15-37 [facility] Work Phone: Thin prep Papanicolaou smear with manual screening 8 5-15 [facility] Work Phone: Whole blood hemoglobin A1c/t otal hemoglobin ratio (mass fraction)on 12-02-2021 HbA1c (Bld) [Mass fraction] 6.1 % 3.8-5.6 [facility] Work Phone: Comment on above: Normal < 5.7 % Predi abetic 5.7 - 6.4 % Diabetic >or= 6.5 % Please note range changes. Absolute lymphocyte counton 09-17-2021 Lymphocytes Auto (Unsp spec) [#/Vol] 1.95 10*3/uL 0.83-4.51 [facility] Work Phone: Basophil percentageon 2021 Basophil percentage 115 mg/dL 74-106 [facility] Work Phone: Basophil percentage 139 mmol/L 136-145 [facility] Work Phone: Basophil percentage 3.9 mmol/L 3.5-5.1 [facility] Work Phone: Basophil percentage 105 mmol/L 98-107 [facility] Work Phone: Basophils (Bld) [#/Vol] 8.5 10*3/uL 4.4-11.0 [facility] Work Phone: Basophils (Bld) [#/Vol] 5.7 10*3/uL 2.0-7.7 [facility] Work Phone: Basophils/100 WBC (Bld) 67.2 % 47-70 [facility] Work Phone: Basophils/100 WBC (Bld) 3.8 % 0-5 [facility] Work Phone: Basophils/100 WBC (Bld) 0.4 % 0-1 [facility] Work Phone: Chloride [Moles/Vol] 105 mmol/L 98-107 [facility]: Eosinophils/100 WBC (Bld) 3.8 % 0-5 [facility] Work Phone: Glucose [Mass/Vol] 115 mg/dL 74-106 [facility] Work Phone: Comment on above: Fasting Glucose resu lt from 100 to 125 mg/dL suggests IMPAIRED HOMEOSTASIS per A.D.A. criteria. Neutrophils (Bld) [#/Vol] 5.7 10*3/uL 2.0-7.7 [facility] Work Phone: Neutrophils/100 WBC (Bld) 67.2 % 47-70 [facility] Work Phone: Potassium [Moles/Vol] 3.9 mmol/L 3.5-5.1 [facility]: Sodium [Moles/Vol] 139 mmol/L 136-145 [facility] Work Phone: WBC (Bld) [#/Vol] 8.5 10*3/uL 4.4-11.0 [facility] Work Phone: Blood erythrocytes count (nu mber/volume)on 09-17-2021 RBC (Bld) [#/Vol] 3.56 10*6/uL 4.2-5.4 [facility] Work [facility]: Blood hemoglobin measurement (mass/volume)on 09-17-2021 Hemoglobin (Bld) [Mass/Vol] 9.6 g/dL 12.0-15.0 [facility] Work Phone: Blood lymphocytes/100 leukoc yteson 09-17-2021 Lymphocytes/100 WBC (Bld) 22.9 % 19-41 [facility] Work Phone: Blood monocytes/100 leukocyt eson 09-17-2021 Monocytes/100 WBC (Bld) 5.3 % 0-10 [facility] Work Phone: Blood platelet mean volumeon 09-17-2021 Platelet mean volume (Bld) [Entitic vol] 10.3 fL 6.2-12.0 [facility] Work Phone: Determination of erythrocyte mean corpuscular volume (MCV)on 09-17-2021 MCV (RBC) [Entitic vol] 86.0 fL 81-99 [facility] Work Phone: Hematocrit Auto (Bld) [Volum e fraction]on 09-17-2021 Hematocrit (Bld) [Volume fraction] 30.6 % 37-47 [facility] Work Phone: Laboratory - Chemistry and C hemistry - challengeon 09-17-2021 CO2 [Moles/Vol] 28.0 mmol/L 21.0-32.0 [facility] Work Phone: Urea nitrogen/Creatinine [Mass ratio] 20.5 mg/mg 10-20 [facility] Work Phone: Laboratory - Hematology and Cell countson 09-17-2021 Erythrocyte distribution width (RBC) [Entitic vol] 47.5 fL 35.1-43.9 [facility] Work Phone: Erythrocyte distribution width (RBC) [Ratio] 15.0 % 11.6-14.6 [facility] Work Phone: Immature granulocytes/100 WBC (Bld) 0.400 % 0.0-0.9 [facility] Work Phone: Comment on above: IG% - Immature Granu locytes (promyelocytes, myelocytes and metamyelocytes) > 1% indicates that a LEFT SHIFT is Present. MCH (RBC) [Entitic mass] 27.0 pg 27.0-32.0 [facility] Work Phone: Nucleated RBC/100 WBC (Bld) [Ratio] 0 % 0-5 [facility] Work Phone: MCHC Auto (RBC) [Mass/Vol]on 09-17-2021 MCHC (RBC) [Mass/Vol] 31.4 g/dL 32-36 [facility] Work Phone: No Panel Informationon 09-17 Estimated GFR (MDRD) Amer 37 mL/min >60 [facility] Work Phone: Comment on above: GFR Calc Estimated GFR (MDRD) Non-Af Amer 30 mL/min >60 [facility] Work Phone: Comment on above: Non- GFR Calc 27.0 pg 27.0-32.0 [facility] Work Phone: 15.0 % 11.6-14.6 [facility] Work Phone: 47.5 fl 35.1-43.9 [facility] Work Phone: 0.400 % 0.0-0.9 [facility] Work Phone: % 0-5 [facility] Work Phone: 30 mL/min >60 [facility] Work Phone: 37 mL/min >60 [facility] Work Phone: [phone] 20.5 RATIO 10-20 [facility] Work Phone: 28.0 mmol/L 21.0-32.0 [facility] Work Phone: Platelets bldon 09-17-2021 Platelets (Bld) [#/Vol] 232 10*3/uL 150-450 [facility] Work Phone: Serum or plasma calcium keyona urement (mass/volume)on 09-17-2021 Calcium [Mass/Vol] 8.6 mg/dL 8.5-10.1 [facility] Work Phone: Serum or plasma creatinine m easurement (mass/volume)on 09-17-2021 Creatinine [Mass/Vol] 1.76 mg/dL 0.55-1.02 [facility] Work Phone: Comment on above: The validity of the calculated GFR & GFRAA in patients over 70 years has not been determined. Clinical correlation is essential. Serum or plasma urea nitroge n measurement (mass/volume)on 09-17-2021 Urea nitrogen [Mass/Vol] 36 mg/dL 7-18 [facility] Work Phone: Thin prep Papanicolaou smear with manual screeningon 09-17-2021 Thin prep Papanicolaou smear with manual screening 6 5-15 [facility] Work Phone: Absolute lymphocyte counton 09-10-2021 Lymphocytes Auto (Unsp spec) [#/Vol] 1.89 10*3/uL 0.83-4.51 [facility] Work Phone: Basophil percentageon 2021 Basophil percentage 68 mg/dL 74-106 [facility] Work Phone: [phone] Basophil percentage 7.2 g/dL 6.4-8.2 [facility] Work Phone: Basophil percentage 0.30 mg/dL 0.20-1.00 [facility] Work Phone: [phone] Basophil percentage 140 mmol/L 136-145 [facility] Work Phone: Basophil percentage 4.0 mmol/L 3.5-5.1 [facility] Work Phone: Basophil percentage 105 mmol/L 98-107 [facility] Work Phone: [phone] Basophils (Bld) [#/Vol] 7.5 10*3/uL 4.4-11.0 [facility] Work Phone: Basophils (Bld) [#/Vol] 4.6 10*3/uL 2.0-7.7 [facility] Work Phone: Basophils/100 WBC (Bld) 61.4 % 47-70 [facility] Work Phone: Basophils/100 WBC (Bld) 5.4 % 0-5 [facility] Work Phone: Basophils/100 WBC (Bld) 0.4 % 0-1 [facility] Work Phone: Bilirubin [Mass/Vol] 0.30 mg/dL 0.20-1.00 [facility] Work Phone: Comment on above: For patients on eltr ombopag therapy, use of Dimension [place] TBIL is not recommended. Chloride [Moles/Vol] 105 mmol/L 98-107 [facility] Work Phone: [phone] Eosinophils/100 WBC (Bld) 5.4 % 0-5 [facility] Work Phone: [phone] Glucose [Mass/Vol] 68 mg/dL 74-106 [facility]: [phone] Neutrophils (Bld) [#/Vol] 4.6 10*3/uL 2.0-7.7 [facility] Work Phone: [phone] Neutrophils/100 WBC (Bld) 61.4 % 47-70 [facility] Work Phone: [phone] Potassium [Moles/Vol] 4.0 mmol/L 3.5-5.1 [facility] Work [facility]: [phone] Protein [Mass/Vol] 7.2 g/dL 6.4-8.2 [facility] Work [facility]: [phone] Sodium [Moles/Vol] 140 mmol/L 136-145 [facility] Work Phone: [phone] WBC (Bld) [#/Vol] 7.5 10*3/uL 4.4-11.0 [facility] Work Phone: Blood erythrocytes count (nu mber/volume)on 09-10-2021 RBC (Bld) [#/Vol] 3.84 10*6/uL 4.2-5.4 [facility] Work [facility]: Blood hemoglobin measurement (mass/volume)on 09-10-2021 Hemoglobin (Bld) [Mass/Vol] 10.2 g/dL 12.0-15.0 [facility] Work Phone: [phone] Blood lymphocytes/100 leukoc yteson 09-10-2021 Lymphocytes/100 WBC (Bld) 25.4 % 19-41 [facility] Work Phone: [phone] Blood monocytes/100 leukocyt eson 09-10-2021 Monocytes/100 WBC (Bld) 7.0 % 0-10 [facility] Work Phone: Blood platelet mean volumeon 09-10-2021 Platelet mean volume (Bld) [Entitic vol] 10.5 fL 6.2-12.0 [facility] Work Phone: Determination of erythrocyte mean corpuscular volume (MCV)on 09-10-2021 MCV (RBC) [Entitic vol] 87.8 fL 81-99 [facility] Work Phone: Hematocrit Auto (Bld) [Volum e fraction]on 09-10-2021 Hematocrit (Bld) [Volume fraction] 33.7 % 37-47 [facility] Work Phone: Laboratory - Chemistry and C hemistry - challengeon 09-10-2021 ALP [Catalytic activity/Vol] 68 U/L 45-117 [facility] Work Phone: ALT [Catalytic activity/Vol] 23 U/L 13-56 [facility] Work Phone: CO2 [Moles/Vol] 32.0 mmol/L 21.0-32.0 [facility] Work Phone: Globulin (S) [Mass/Vol] 3.8 g/dL 2.2-4.2 [facility] Work Phone: Urea nitrogen/Creatinine [Mass ratio] 23.5 mg/mg 10-20 [facility] Work Phone: Laboratory - Hematology and Cell countson 09-10-2021 Erythrocyte distribution width (RBC) [Entitic vol] 48.5 fL 35.1-43.9 [facility] Work Phone: Erythrocyte distribution width (RBC) [Ratio] 15.3 % 11.6-14.6 [facility] Work Phone: Immature granulocytes/100 WBC (Bld) 0.400 % 0.0-0.9 [facility] Work Phone: Comment on above: IG% - Immature Granu locytes (promyelocytes, myelocytes and metamyelocytes) > 1% indicates that a LEFT SHIFT is Present. MCH (RBC) [Entitic mass] 26.6 pg 27.0-32.0 [facility] Work Phone: Nucleated RBC/100 WBC (Bld) [Ratio] 0 % 0-5 [facility] Work Phone: MCHC Auto (RBC) [Mass/Vol]on 09-10-2021 MCHC (RBC) [Mass/Vol] 30.3 g/dL 32-36 [facility] Work Phone: No Panel Informationon 09-10 Estimated GFR (MDRD) Amer 51 mL/min >60 [facility] Work Phone: Comment on above: GFR Calc Estimated GFR (MDRD) Non-Af Amer 42 mL/min >60 [facility] Work Phone: Comment on above: Non- GFR Calc 26.6 pg 27.0-32.0 [facility] Work Phone: 15.3 % 11.6-14.6 [facility] Work Phone: 48.5 fl 35.1-43.9 [facility] Work Phone: 0.400 % 0.0-0.9 [facility] Work Phone: 0 % 0-5 [facility] Work Phone: 42 mL/min >60 [facility] Work Phone: 51 mL/min >60 [facility] Work Phone: 23.5 RATIO 10-20 [facility] Work Phone: 3.8 g/dL 2.2-4.2 [facility] Work Phone: 68 U/L 45-117 [facility] Work Phone: 23 U/L 13-56 [facility] Work Phone: 32.0 mmol/L 21.0-32.0 [facility] Work Phone: Platelets bldon 09-10-2021 Platelets (Bld) [#/Vol] 249 10*3/uL 150-450 [facility] Work Phone: Serum or plasma albumin keyona urement (mass/volume)on 09-10-2021 Albumin [Mass/Vol] 3.4 g/dL 3.2-5.0 [facility] Work Phone: Serum or plasma albumin/glob ulin mass ratioon 09-10-2021 Albumin/Globulin [Mass ratio] 0.9 {ratio} 0.9-2.4 [facility] Work Phone: Serum or plasma calcium keyona urement (mass/volume)on 09-10-2021 Calcium [Mass/Vol] 9.2 mg/dL 8.5-10.1 [facility] Work Phone: Serum or plasma creatinine m easurement (mass/volume)on 09-10-2021 Creatinine [Mass/Vol] 1.32 mg/dL 0.55-1.02 [facility] Work Phone: Comment on above: The validity of the calculated GFR & GFRAA in patients over 70 years has not been determined. Clinical correlation is essential. Serum or plasma urea nitroge n measurement (mass/volume)on 09-10-2021 Urea nitrogen [Mass/Vol] 31 mg/dL 7-18 [facility] Work Phone: Thin prep Papanicolaou smear with manual screeningon 09-10-2021 Thin prep Papanicolaou smear with manual screening 17 U/L 15-37 [facility] Work Phone: Thin prep Papanicolaou smear with manual screening 3 5-15 [facility] Work Phone: Absolute lymphocyte counton 09-03-2021 Lymphocytes Auto (Unsp spec) [#/Vol] 2.21 10*3/uL 0.83-4.51 [facility] Work Phone: Basophil percentageon 2021 Basophil percentage 72 mg/dL 74-106 [facility] Work Phone: Basophil percentage 7.4 g/dL 6.4-8.2 [facility] Work Phone: Basophil percentage 0.40 mg/dL 0.20-1.00 [facility] Work Phone: Basophil percentage 139 mmol/L 136-145 [facility] Work Phone: Basophil percentage 4.1 mmol/L 3.5-5.1 [facility] Work Phone: Basophil percentage 104 mmol/L 98-107 [facility] Work Phone: Basophils (Bld) [#/Vol] 8.5 10*3/uL 4.4-11.0 [facility] Work Phone: Basophils (Bld) [#/Vol] 5.3 10*3/uL 2.0-7.7 [facility] Work Phone: Basophils/100 WBC (Bld) 63.1 % 47-70 [facility] Work Phone: Basophils/100 WBC (Bld) 4.4 % 0-5 [facility] Work Phone: Basophils/100 WBC (Bld) 0.5 % 0-1 [facility] Work Phone: [phone] Bilirubin [Mass/Vol] 0.40 mg/dL 0.20-1.00 [facility] Work Phone: Comment on above: For patients on eltr ombopag therapy, use of Dimension [place] TBIL is not recommended. Chloride [Moles/Vol] 104 mmol/L 98-107 [facility] Work Phone: Eosinophils/100 WBC (Bld) 4.4 % 0-5 [facility] Work Phone: Glucose [Mass/Vol] 72 mg/dL 74-106 [facility] Work Phone: Neutrophils (Bld) [#/Vol] 5.3 10*3/uL 2.0-7.7 [facility] Work Phone: Neutrophils/100 WBC (Bld) 63.1 % 47-70 [facility] Work Phone: Potassium [Moles/Vol] 4.1 mmol/L 3.5-5.1 [facility] Work Phone: Protein [Mass/Vol] 7.4 g/dL 6.4-8.2 [facility] Work Phone: Sodium [Moles/Vol] 139 mmol/L 136-145 [facility] Work Phone: WBC (Bld) [#/Vol] 8.5 10*3/uL 4.4-11.0 [facility] Work Phone: Blood erythrocytes count (nu mber/volume)on 09-03-2021 RBC (Bld) [#/Vol] 4.00 10*6/uL 4.2-5.4 [facility] Work [facility]: Blood hemoglobin measurement (mass/volume)on 09-03-2021 Hemoglobin (Bld) [Mass/Vol] 10.7 g/dL 12.0-15.0 [facility] Work Phone: Blood lymphocytes/100 leukoc yteson 09-03-2021 Lymphocytes/100 WBC (Bld) 26.2 % 19-41 [facility] Work Phone: Blood monocytes/100 leukocyt eson 09-03-2021 Monocytes/100 WBC (Bld) 5.4 % 0-10 [facility] Work Phone: Blood platelet mean volumeon 09-03-2021 Platelet mean volume (Bld) [Entitic vol] 10.6 fL 6.2-12.0 [facility] Work Phone: Determination of erythrocyte mean corpuscular volume (MCV)on 09-03-2021 MCV (RBC) [Entitic vol] 86.3 fL 81-99 [facility] Work Phone: Hematocrit Auto (Bld) [Volum e fraction]on 09-03-2021 Hematocrit (Bld) [Volume fraction] 34.5 % 37-47 [facility] Work Phone: Laboratory - Chemistry and C hemistry - challengeon 09-03-2021 ALP [Catalytic activity/Vol] 77 U/L 45-117 [facility] Work Phone: ALT [Catalytic activity/Vol] 24 U/L 13-56 [facility] Work Phone: CO2 [Moles/Vol] 29.0 mmol/L 21.0-32.0 [facility] Work Phone: Globulin (S) [Mass/Vol] 4.0 g/dL 2.2-4.2 [facility] Work Phone: Urea nitrogen/Creatinine [Mass ratio] 23.3 mg/mg 10-20 [facility] Work Phone: Laboratory - Hematology and Cell countson 09-03-2021 Erythrocyte distribution width (RBC) [Entitic vol] 48.1 fL 35.1-43.9 [facility] Work Phone: Erythrocyte distribution width (RBC) [Ratio] 15.0 % 11.6-14.6 [facility] Work Phone: Immature granulocytes/100 WBC (Bld) 0.400 % 0.0-0.9 [facility] Work Phone: Comment on above: IG% - Immature Granu locytes (promyelocytes, myelocytes and metamyelocytes) > 1% indicates that a LEFT SHIFT is Present. MCH (RBC) [Entitic mass] 26.8 pg 27.0-32.0 [facility] Work Phone: Nucleated RBC/100 WBC (Bld) [Ratio] 0 % 0-5 [facility] Work Phone: MCHC Auto (RBC) [Mass/Vol]on 09-03-2021 MCHC (RBC) [Mass/Vol] 31.0 g/dL 32-36 [facility] Work Phone: [phone] No Panel Informationon 09-03 Estimated GFR (MDRD) Amer 51 mL/min >60 [facility] Work Phone: [phone] Comment on above: GFR Calc Estimated GFR (MDRD) Non-Af Amer 42 mL/min >60 [facility] Work Phone: [phone] Comment on above: Non- GFR Calc 26.8 pg 27.0-32.0 [facility] Work Phone: [phone] 15.0 % 11.6-14.6 [facility] Work Phone: [phone] 48.1 fl 35.1-43.9 [facility] Work Phone: [phone] 0.400 % 0.0-0.9 [facility] Work Phone: [phone] 0 % 0-5 [facility] Work Phone: [phone] 42 mL/min >60 [facility] Work Phone: [phone] 51 mL/min >60 [facility] Work Phone: [phone] 23.3 RATIO 10-20 [facility] Work Phone: 4.0 g/dL 2.2-4.2 [facility] Work Phone: [phone] 77 U/L 45-117 [facility] Work Phone: 24 U/L 13-56 [facility] Work Phone: 29.0 mmol/L 21.0-32.0 [facility] Work Phone: Platelets bldon 09-03-2021 Platelets (Bld) [#/Vol] 253 10*3/uL 150-450 [facility] Work Phone: [phone] Serum or plasma albumin keyona urement (mass/volume)on 09-03-2021 Albumin [Mass/Vol] 3.4 g/dL 3.2-5.0 [facility] Work Phone: Serum or plasma albumin/glob ulin mass ratioon 09-03-2021 Albumin/Globulin [Mass ratio] 0.8 {ratio} 0.9-2.4 [facility] Work Phone: Serum or plasma calcium keyona urement (mass/volume)on 09-03-2021 Calcium [Mass/Vol] 9.2 mg/dL 8.5-10.1 [facility] Work Phone: Serum or plasma creatinine m easurement (mass/volume)on 09-03-2021 Creatinine [Mass/Vol] 1.33 mg/dL 0.55-1.02 [facility] Work Phone: Comment on above: The validity of the calculated GFR & GFRAA in patients over 70 years has not been determined. Clinical correlation is essential. Serum or plasma urea nitroge n measurement (mass/volume)on 09-03-2021 Urea nitrogen [Mass/Vol] 31 mg/dL 7-18 [facility] Work Phone: Thin prep Papanicolaou smear with manual screeningon 09-03-2021 Thin prep Papanicolaou smear with manual screening 20 U/L 15-37 [facility] Work Phone: Thin prep Papanicolaou smear with manual screening 6 5-15 [facility] Work Phone: Absolute lymphocyte counton 08-27-2021 Lymphocytes Auto (Unsp spec) [#/Vol] 2.03 10*3/uL 0.83-4.51 [facility] Work Phone: Basophil percentageon 2021 Basophil percentage 75 mg/dL 74-106 [facility] Work Phone: Basophil percentage 6.9 g/dL 6.4-8.2 [facility] Work Phone: Basophil percentage 0.20 mg/dL 0.20-1.00 [facility] Work Phone: Basophil percentage 138 mmol/L 136-145 [facility] Work Phone: Basophil percentage 4.1 mmol/L 3.5-5.1 [facility] Work Phone: Basophil percentage 106 mmol/L 98-107 [facility] Work Phone: Basophils (Bld) [#/Vol] 8.1 10*3/uL 4.4-11.0 [facility] Work Phone: Basophils (Bld) [#/Vol] 5.1 10*3/uL 2.0-7.7 [facility] Work Phone: Basophils/100 WBC (Bld) 63.0 % 47-70 [facility] Work Phone: [phone] Basophils/100 WBC (Bld) 4.4 % 0-5 [facility] Work Phone: [phone] Basophils/100 WBC (Bld) 0.5 % 0-1 [facility] Work Phone: [phone] Bilirubin [Mass/Vol] 0.20 mg/dL 0.20-1.00 [facility] Work Phone: [phone] Comment on above: For patients on eltr ombopag therapy, use of Dimension [place] TBIL is not recommended. Chloride [Moles/Vol] 106 mmol/L 98-107 [facility] Work Phone: Eosinophils/100 WBC (Bld) 4.4 % 0-5 [facility] Work Phone: Glucose [Mass/Vol] 75 mg/dL 74-106 [facility] Work Phone: Neutrophils (Bld) [#/Vol] 5.1 10*3/uL 2.0-7.7 [facility] Work Phone: Neutrophils/100 WBC (Bld) 63.0 % 47-70 [facility] Work Phone: Potassium [Moles/Vol] 4.1 mmol/L 3.5-5.1 [facility] Work [facility]: Protein [Mass/Vol] 6.9 g/dL 6.4-8.2 [facility] Work [facility]: Sodium [Moles/Vol] 138 mmol/L 136-145 [facility] Work Phone: WBC (Bld) [#/Vol] 8.1 10*3/uL 4.4-11.0 [facility] Work [facility]: Blood erythrocytes count (nu mber/volume)on 08-27-2021 RBC (Bld) [#/Vol] 3.53 10*6/uL 4.2-5.4 [facility] Work Phone: Blood hemoglobin measurement (mass/volume)on 08-27-2021 Hemoglobin (Bld) [Mass/Vol] 9.4 g/dL 12.0-15.0 [facility] Work Phone: Blood lymphocytes/100 leukoc yteson 08-27-2021 Lymphocytes/100 WBC (Bld) 25.1 % 19-41 [facility] Work Phone: Blood monocytes/100 leukocyt eson 08-27-2021 Monocytes/100 WBC (Bld) 6.5 % 0-10 [facility] Work Phone: Blood platelet mean volumeon 08-27-2021 Platelet mean volume (Bld) [Entitic vol] 10.2 fL 6.2-12.0 [facility] Work Phone: Determination of erythrocyte mean corpuscular volume (MCV)on 08-27-2021 MCV (RBC) [Entitic vol] 85.3 fL 81-99 [facility] Work Phone: Hematocrit Auto (Bld) [Volum e fraction]on 08-27-2021 Hematocrit (Bld) [Volume fraction] 30.1 % 37-47 [facility] Work Phone: Laboratory - Chemistry and C hemistry - challengeon 08-27-2021 ALP [Catalytic activity/Vol] 76 U/L 45-117 [facility] Work Phone: ALT [Catalytic activity/Vol] 24 U/L 13-56 [facility] Work Phone: CO2 [Moles/Vol] 28.0 mmol/L 21.0-32.0 [facility] Work Phone: Globulin (S) [Mass/Vol] 3.8 g/dL 2.2-4.2 [facility] Work Phone: Urea nitrogen/Creatinine [Mass ratio] 27.0 mg/mg 10-20 [facility] Work Phone: Laboratory - Hematology and Cell countson 08-27-2021 Erythrocyte distribution width (RBC) [Entitic vol] 48.4 fL 35.1-43.9 [facility] Work Phone: Erythrocyte distribution width (RBC) [Ratio] 15.6 % 11.6-14.6 [facility] Work Phone: Immature granulocytes/100 WBC (Bld) 0.500 % 0.0-0.9 [facility] Work Phone: Comment on above: IG% - Immature Granu locytes (promyelocytes, myelocytes and metamyelocytes) > 1% indicates that a LEFT SHIFT is Present. MCH (RBC) [Entitic mass] 26.6 pg 27.0-32.0 [facility] Work Phone: Nucleated RBC/100 WBC (Bld) [Ratio] 0 % 0-5 [facility] Work Phone: MCHC Auto (RBC) [Mass/Vol]on 08-27-2021 MCHC (RBC) [Mass/Vol] 31.2 g/dL 32-36 [facility] Work [facility]: No Panel Informationon 08-27 Estimated GFR (MDRD) Amer 45 mL/min >60 [facility] Work Phone: Comment on above: GFR Calc Estimated GFR (MDRD) Non-Af Amer 37 mL/min >60 [facility] Work Phone: [phone] Comment on above: Non- GFR Calc 26.6 pg 27.0-32.0 [facility] Work Phone: 15.6 % 11.6-14.6 [facility] Work Phone: [phone] 48.4 fl 35.1-43.9 [facility] Work Phone: 0.500 % 0.0-0.9 [facility] Work Phone: [phone] 0 % 0-5 [facility] Work Phone: [phone] 37 mL/min >60 [facility] Work Phone: [phone] 45 mL/min >60 [facility] Work Phone: [phone] 27.0 RATIO 10-20 [facility] Work Phone: [phone] 3.8 g/dL 2.2-4.2 [facility] Work Phone: [phone] 76 U/L 45-117 [facility] Work Phone: [phone] 24 U/L 13-56 [facility] Work Phone: [phone] 28.0 mmol/L 21.0-32.0 [facility] Work Phone: [phone] Platelets bldon 08-27-2021 Platelets (Bld) [#/Vol] 233 10*3/uL 150-450 [facility] Work Phone: [phone] Serum or plasma albumin keyona urement (mass/volume)on 08-27-2021 Albumin [Mass/Vol] 3.1 g/dL 3.2-5.0 [facility] Work Phone: [phone] Serum or plasma albumin/glob ulin mass ratioon 08-27-2021 Albumin/Globulin [Mass ratio] 0.8 {ratio} 0.9-2.4 [facility] Work Phone: [phone] Serum or plasma calcium keyona urement (mass/volume)on 08-27-2021 Calcium [Mass/Vol] 9.0 mg/dL 8.5-10.1 [facility] Work Phone: Serum or plasma creatinine m easurement (mass/volume)on 08-27-2021 Creatinine [Mass/Vol] 1.48 mg/dL 0.55-1.02 [facility] Work Phone: Comment on above: The validity of the calculated GFR & GFRAA in patients over 70 years has not been determined. Clinical correlation is essential. Serum or plasma urea nitroge n measurement (mass/volume)on 08-27-2021 Urea nitrogen [Mass/Vol] 40 mg/dL 7-18 [facility] Work Phone: Thin prep Papanicolaou smear with manual screeningon 08-27-2021 Thin prep Papanicolaou smear with manual screening 18 U/L 15-37 [facility] Work Phone: Thin prep Papanicolaou smear with manual screening 4 5-15 [facility] Work Phone: [phone] Absolute lymphocyte counton 08-22-2021 Lymphocytes Auto (Unsp spec) [#/Vol] 1.58 10*3/uL 0.83-4.51 [facility] Work Phone: Basophil percentageon 2021 Basophil percentage 146 mg/dL 74-106 [facility] Work Phone: Basophil percentage 136 mmol/L 136-145 [facility] Work Phone: Basophil percentage 3.8 mmol/L 3.5-5.1 [facility] Work Phone: Basophil percentage 107 mmol/L 98-107 [facility] Work Phone: Basophils (Bld) [#/Vol] 6.9 10*3/uL 4.4-11.0 [facility] Work Phone: Basophils (Bld) [#/Vol] 4.5 10*3/uL 2.0-7.7 [facility] Work Phone: [phone] Basophils/100 WBC (Bld) 65.5 % 47-70 [facility] Work Phone: [phone] Basophils/100 WBC (Bld) 4.8 % 0-5 [facility] Work Phone: [phone] Basophils/100 WBC (Bld) 0.3 % 0-1 [facility] Work Phone: [phone] Chloride [Moles/Vol] 107 mmol/L 98-107 [facility] Work Phone: [phone] Eosinophils/100 WBC (Bld) 4.8 % 0-5 [facility] Work Phone: [phone] Glucose [Mass/Vol] 146 mg/dL 74-106 [facility] Work Phone: Comment on above: Fasting Glucose resu lt greater than or equal to 126 mg/dL suggests DIABETES MELLITUS per A.D.A. criteria. Neutrophils (Bld) [#/Vol] 4.5 10*3/uL 2.0-7.7 [facility] Work Phone: [phone] Neutrophils/100 WBC (Bld) 65.5 % 47-70 [facility] Work Phone: [phone] Potassium [Moles/Vol] 3.8 mmol/L 3.5-5.1 [facility] Work Phone: Sodium [Moles/Vol] 136 mmol/L 136-145 [facility] Work Phone: [phone] WBC (Bld) [#/Vol] 6.9 10*3/uL 4.4-11.0 [facility] Work Phone: Blood erythrocytes count (nu mber/volume)on 08-22-2021 RBC (Bld) [#/Vol] 3.76 10*6/uL 4.2-5.4 [facility] Work Phone: Blood hemoglobin measurement (mass/volume)on 08-22-2021 Hemoglobin (Bld) [Mass/Vol] 10.2 g/dL 12.0-15.0 [facility] Work Phone: Blood lymphocytes/100 leukoc yteson 08-22-2021 Lymphocytes/100 WBC (Bld) 22.9 % 19-41 [facility] Work Phone: [phone] Blood monocytes/100 leukocyt eson 08-22-2021 Monocytes/100 WBC (Bld) 6.2 % 0-10 [facility] Work Phone: Blood platelet mean volumeon 08-22-2021 Platelet mean volume (Bld) [Entitic vol] 9.9 fL 6.2-12.0 [facility] Work Phone: Determination of erythrocyte mean corpuscular volume (MCV)on 08-22-2021 MCV (RBC) [Entitic vol] 83.8 fL 81-99 [facility] Work Phone: Hematocrit Auto (Bld) [Volum e fraction]on 08-22-2021 Hematocrit (Bld) [Volume fraction] 31.5 % 37-47 [facility] Work Phone: Laboratory - Chemistry and C hemistry - challengeon 08-22-2021 CO2 [Moles/Vol] 24.0 mmol/L 21.0-32.0 [facility] Work Phone: Urea nitrogen/Creatinine [Mass ratio] 19.2 mg/mg 10-20 [facility] Work Phone: Laboratory - Hematology and Cell countson 08-22-2021 Erythrocyte distribution width (RBC) [Entitic vol] 45.2 fL 35.1-43.9 [facility] Work Phone: Erythrocyte distribution width (RBC) [Ratio] 14.9 % 11.6-14.6 [facility] Work Phone: Immature granulocytes/100 WBC (Bld) 0.300 % 0.0-0.9 [facility] Work Phone: Comment on above: IG% - Immature Granu locytes (promyelocytes, myelocytes and metamyelocytes) > 1% indicates that a LEFT SHIFT is Present. MCH (RBC) [Entitic mass] 27.1 pg 27.0-32.0 [facility] Work Phone: Nucleated RBC/100 WBC (Bld) [Ratio] 0 % 0-5 [facility] Work Phone: MCHC Auto (RBC) [Mass/Vol]on 08-22-2021 MCHC (RBC) [Mass/Vol] 32.4 g/dL 32-36 [facility] Work Phone: No Panel Informationon 08-22 Estimated Creatinine Clearance Calc 38.52 ml/min [facility] Work Phone: Estimated GFR (MDRD) Amer 68 mL/min >60 [facility] Work Phone: Comment on above: GFR Calc Estimated GFR (MDRD) Non-Af Amer 56 mL/min >60 [facility] Work Phone: [phone] Comment on above: Non- GFR Calc 27.1 pg 27.0-32.0 [facility] Work Phone: [phone] 14.9 % 11.6-14.6 [facility] Work Phone: [phone] 45.2 fl 35.1-43.9 [facility] Work Phone: 0.300 % 0.0-0.9 [facility] Work Phone: 0 % 0-5 [facility] Work Phone: 56 mL/min >60 [facility] Work Phone: [phone] 68 mL/min >60 [facility] Work Phone: [phone] 38.52 ml/min [facility] Work Phone: [phone] 19.2 RATIO 10-20 [facility] Work Phone: [phone] 24.0 mmol/L 21.0-32.0 [facility] Work Phone: Platelets bldon 08-22-2021 Platelets (Bld) [#/Vol] 229 10*3/uL 150-450 [facility] Work Phone: Serum or plasma calcium keyona urement (mass/volume)on 08-22-2021 Calcium [Mass/Vol] 9.1 mg/dL [facility]5-[facility] Work Phone: Serum or plasma creatinine m easurement (mass/volume)on 08-22-2021 Creatinine [Mass/Vol] 1.04 mg/dL 0.55-1.02 [facility] Work Phone: Comment on above: The validity of the calculated GFR & GFRAA in patients over 70 years has not been determined. Clinical correlation is essential. Serum or plasma urea nitroge n measurement (mass/volume)on 08-22-2021 Urea nitrogen [Mass/Vol] 20 mg/dL 7-18 [facility] Work Phone: Thin prep Papanicolaou smear with manual screeningon 08-22-2021 Thin prep Papanicolaou smear with manual screening 5 5-15 [facility] Work Phone: Whole blood hemoglobin A1c/t otal hemoglobin ratio (mass fraction)on 08-22-2021 HbA1c (Bld) [Mass fraction] 6.2 % 3.8-5.6 [facility] Work Phone: Comment on above: Normal < 5.7 % Predi abetic 5.7 - 6.4 % Diabetic >or= 6.5 % Please note range changes. Absolute lymphocyte counton 08-21-2021 Lymphocytes Auto (Unsp spec) [#/Vol] 1.87 10*3/uL 0.83-4.51 [facility] Work Phone: Basophil percentageon 2021 Basophil percentage 0-5 SEEN /hpf 0-5 [facility] Work Phone: Basophil percentage 71 mg/dL 74-106 [facility] Work Phone: Basophil percentage 7.7 g/dL 6.4-8.2 [facility] Work Phone: [phone] Basophil percentage 0.40 mg/dL 0.20-1.00 [facility] Work Phone: [phone] Basophil percentage 139 mmol/L 136-145 [facility] Work Phone: [phone] Basophil percentage 4.2 mmol/L 3.5-5.1 [facility] Work Phone: [phone] Basophil percentage 106 mmol/L 98-107 [facility] Work Phone: [phone] Basophils (Bld) [#/Vol] 8.1 10*3/uL 4.4-11.0 [facility] Work Phone: [phone] Basophils (Bld) [#/Vol] 5.2 10*3/uL 2.0-7.7 [facility] Work Phone: [phone] Basophils/100 WBC (Bld) 64.3 % 47-70 [facility] Work Phone: [phone] Basophils/100 WBC (Bld) 4.2 % 0-5 [facility] Work Phone: Basophils/100 WBC (Bld) 0.5 % 0-1 [facility] Work Phone: Bilirubin [Mass/Vol] 0.40 mg/dL 0.20-1.00 [facility] Work Phone: Comment on above: For patients on eltr ombopag therapy, use of Dimension [place] TBIL is not recommended. Protein [Mass/Vol] 7.7 g/dL 6.4-8.2 [facility] Work Phone: Bilirubin Test strip Ql (U)o n 08-21-2021 Bilirubin Ql (U) Negative Negative [facility] Work Phone: Blood erythrocytes count (nu mber/volume)on 08-21-2021 RBC (Bld) [#/Vol] 3.95 10*6/uL 4.2-5.4 [facility] Work [facility]: Blood hemoglobin measurement (mass/volume)on 08-21-2021 Hemoglobin (Bld) [Mass/Vol] 10.6 g/dL 12.0-15.0 [facility] Work Phone: Blood lymphocytes/100 leukoc yteson 08-21-2021 Lymphocytes/100 WBC (Bld) 23.2 % 19-41 [facility] Work Phone: Blood monocytes/100 leukocyt eson 08-21-2021 Monocytes/100 WBC (Bld) 7.4 % 0-10 [facility] Work Phone: Blood platelet mean volumeon 08-21-2021 Platelet mean volume (Bld) [Entitic vol] 10.0 fL 6.2-12.0 [facility] Work Phone: Determination of erythrocyte mean corpuscular volume (MCV)on 08-21-2021 MCV (RBC) [Entitic vol] 84.8 fL 81-99 [facility] Work Phone: Glucose Glucometer (BldC) [M ass/Vol]on 08-21-2021 Glucose [Mass/Vol] 148 mg/dL 74-106 [facility] Work Phone: Comment on above: MANAGEMENT OF PATIEN T CARE PER NURSING PROTOCOL Hematocrit Auto (Bld) [Volum e fraction]on 08-21-2021 Hematocrit (Bld) [Volume fraction] 33.5 % 37-47 [facility] Work Phone: Ketones Test strip Ql (U)on 08-21-2021 Ketones Ql (U) Negative Negative [facility] Work Phone: Laboratory - Chemistry and C hemistry - challengeon 08-21-2021 ALP [Catalytic activity/Vol] 87 U/L 45-117 [facility] Work Phone: ALT [Catalytic activity/Vol] 25 U/L 13-56 [facility] Work Phone: Globulin (S) [Mass/Vol] 4.3 g/dL 2.2-4.2 [facility] Work Phone: Lower GI hemoglobin IA Ql (S tl)on 08-21-2021 Stool Occult Blood (LATISHA) Positive [facility] Work Phone: Stool gastrointestinal hemoglobin detection by immunologic method Positive [facility] Work Phone: MCHC Auto (RBC) [Mass/Vol]on 08-21-2021 MCHC (RBC) [Mass/Vol] 31.6 g/dL 32-36 [facility] Work Phone: Mucus LM Ql (Urine sed)on Mucus Ql (Urine sed) 0 SEEN /hpf [facility] Work Phone: Nitrite Test strip Ql (U)on 08-21-2021 Nitrite Ql (U) Positive Negative [facility] Work Phone: No Panel Informationon 08-21 26.8 pg 27.0-32.0 [facility] Work Phone: 15.0 % 11.6-14.6 [facility] Work Phone: 46.4 fl 35.1-43.9 [facility] Work Phone: 0.400 % 0.0-0.9 [facility] Work Phone: 0 % 0-5 [facility] Work Phone: 43 mL/min >60 [facility] Work Phone: 52 mL/min >60 [facility] Work Phone: 33.79 ml/min [facility] Work Phone: 22.3 RATIO 10-20 [facility] Work Phone: [phone] 4.3 g/dL 2.2-4.2 [facility] Work Phone: 87 U/L 45-117 [facility] Work Phone: 25 U/L 13-56 [facility] Work Phone: 31.0 mmol/L 21.0-32.0 [facility] Work Phone: Platelets bldon 08-21-2021 Platelets (Bld) [#/Vol] 287 10*3/uL 150-450 [facility] Work Phone: Protein Test strip Ql (U)on 08-21-2021 Protein Ql (U) Negative Negative [facility] Work Phone: Serum or plasma albumin keyona urement (mass/volume)on 08-21-2021 Albumin [Mass/Vol] 3.4 g/dL 3.2-5.0 [facility] Work Phone: Serum or plasma albumin/glob ulin mass ratioon 08-21-2021 Albumin/Globulin [Mass ratio] 0.8 {ratio} 0.9-2.4 [facility] Work Phone: Serum or plasma calcium keyona urement (mass/volume)on 08-21-2021 Calcium [Mass/Vol] 9.4 mg/dL 8.5-10.1 [facility] Work Phone: Serum or plasma creatinine m easurement (mass/volume)on 08-21-2021 Creatinine [Mass/Vol] 1.30 mg/dL 0.55-1.02 [facility] Work Phone: Serum or plasma urea nitroge n measurement (mass/volume)on 08-21-2021 Urea nitrogen [Mass/Vol] 29 mg/dL 7-18 [facility] Work Phone: Squamous epithelial cells de tection in urine sediment by light microscopyon 08-21-2021 Epithelial cells.squamous LM Ql (Urine sed) 0-5 SEEN /hpf 5-10 [facility] Work Phone: Thin prep Papanicolaou smear with manual screeningon 08-21-2021 Thin prep Papanicolaou smear with manual screening 18 U/L 15-37 [facility] Work Phone: Thin prep Papanicolaou smear with manual screening 2 5-15 [facility] Work Phone: Urine blood detectionon - RBC Ql (U) Negative Negative [facility] Work Phone: RBC Ql (U) 0 SEEN /hpf 0-5 [facility] Work Phone: Urine clarityon 08-21-2021 Clarity (U) Sl. Cloudy Clear [facility] Work Phone: Urine color determinationon 08-21-2021 Color (U) Yellow Yellow [facility] Work Phone: Urine glucose detectionon Glucose Ql (U) Normal mg/dl Normal [facility] Work Phone: Urine leukocyte esterase det ection by dipstickon 08-21-2021 Leukocyte esterase Test strip Ql (U) 500 /ul Negative [facility] Work Phone: Urine pHon 08-21-2021 pH (U) 8.0 [pH] 5.0 - 8.0 [facility] Work Phone: Urine sediment bacteria coun t by microscopy (number/high power field)on 08-21-2021 Bacteria LM.HPF (Urine sed) [#/Area] RARE /hpf None Seen [facility] Work Phone: Urine specific gravity measu rementon 08-21-2021 Specific gravity (U) [Rel density] 1.010 1.002-1.030 [facility] Work Phone: Urobilinogen Auto test strip Ql (U)on 08-21-2021 Urobilinogen Ql (U) Normal mg/dl Normal [facility] Work Phone: Absolute lymphocyte counton 08-13-2021 Lymphocytes Auto (Unsp spec) [#/Vol] 1.95 10*3/uL 0.83-4.51 [facility] Work Phone: Basophil percentageon 2021 Basophil percentage 80 mg/dL 74-106 [facility] Work [facility]: Basophil percentage 139 mmol/L 136-145 [facility] Work Phone: Basophil percentage 4.1 mmol/L 3.5-5.1 [facility] Work Phone: Basophil percentage 106 mmol/L 98-107 [facility] Work Phone: Basophils (Bld) [#/Vol] 7.0 10*3/uL 4.4-11.0 [facility] Work Phone: Basophils (Bld) [#/Vol] 4.2 10*3/uL 2.0-7.7 [facility] Work Phone: Basophils/100 WBC (Bld) 0.4 % 0-1 [facility] Work Phone: Basophils/100 WBC (Bld) 60.0 % 47-70 [facility] Work Phone: Basophils/100 WBC (Bld) 4.2 % 0-5 [facility] Work Phone: Chloride [Moles/Vol] 106 mmol/L 98-107 [facility] Work Phone: Eosinophils/100 WBC (Bld) 4.2 % 0-5 [facility] Work Phone: Glucose [Mass/Vol] 80 mg/dL 74-106 [facility] Work Phone: Neutrophils (Bld) [#/Vol] 4.2 10*3/uL 2.0-7.7 [facility] Work Phone: Neutrophils/100 WBC (Bld) 60.0 % 47-70 [facility] Work Phone: Potassium [Moles/Vol] 4.1 mmol/L 3.5-5.1 [facility]: Sodium [Moles/Vol] 139 mmol/L 136-145 [facility] Work Phone: WBC (Bld) [#/Vol] 7.0 10*3/uL 4.4-11.0 [facility] Work Phone: Blood erythrocytes count (nu mber/volume)on 08-13-2021 RBC (Bld) [#/Vol] 3.72 10*6/uL 4.2-5.4 [facility] Work Phone: Blood hemoglobin measurement (mass/volume)on 08-13-2021 Hemoglobin (Bld) [Mass/Vol] 10.4 g/dL 12.0-15.0 [facility] Work Phone: Blood lymphocytes/100 leukoc yteson 08-13-2021 Lymphocytes/100 WBC (Bld) 28.0 % 19-41 [facility] Work Phone: Blood monocytes/100 leukocyt eson 08-13-2021 Monocytes/100 WBC (Bld) 6.8 % 0-10 [facility] Work Phone: Blood platelet mean volumeon 08-13-2021 Platelet mean volume (Bld) [Entitic vol] 10.6 fL 6.2-12.0 [facility] Work Phone: Determination of erythrocyte mean corpuscular volume (MCV)on 08-13-2021 MCV (RBC) [Entitic vol] 86.6 fL 81-99 [facility] Work Phone: Hematocrit Auto (Bld) [Volum e fraction]on 08-13-2021 Hematocrit (Bld) [Volume fraction] 32.2 % 37-47 [facility] Work Phone: Laboratory - Chemistry and C hemistry - challengeon 08-13-2021 CO2 [Moles/Vol] 29.0 mmol/L 21.0-32.0 [facility] Work Phone: Urea nitrogen/Creatinine [Mass ratio] 29.0 mg/mg 10-20 [facility] Work Phone: Laboratory - Hematology and Cell countson 08-13-2021 Erythrocyte distribution width (RBC) [Entitic vol] 47.3 fL 35.1-43.9 [facility] Work Phone: Erythrocyte distribution width (RBC) [Ratio] 14.9 % 11.6-14.6 [facility] Work Phone: Immature granulocytes/100 WBC (Bld) 0.600 % 0.0-0.9 [facility] Work Phone: Comment on above: IG% - Immature Granu locytes (promyelocytes, myelocytes and metamyelocytes) > 1% indicates that a LEFT SHIFT is Present. MCH (RBC) [Entitic mass] 28.0 pg 27.0-32.0 [facility] Work Phone: Nucleated RBC/100 WBC (Bld) [Ratio] 0 % 0-5 [facility] Work Phone: MCHC Auto (RBC) [Mass/Vol]on 08-13-2021 MCHC (RBC) [Mass/Vol] 32.3 g/dL 32-36 [facility] Work Phone: No Panel Informationon 08-13 Estimated GFR (MDRD) Amer 52 mL/min >60 [facility] Work Phone: Comment on above: GFR Calc Estimated GFR (MDRD) Non-Af Amer 43 mL/min >60 [facility] Work Phone: Comment on above: Non- GFR Calc 28.0 pg 27.0-32.0 [facility] Work Phone: 14.9 % 11.6-14.6 [facility] Work Phone: 47.3 fl 35.1-43.9 [facility] Work Phone: 0.600 % 0.0-0.9 [facility] Work Phone: 0 % 0-5 [facility] Work Phone: 43 mL/min >60 [facility] Work Phone: 52 mL/min >60 [facility] Work Phone: 29.0 RATIO 10-20 [facility] Work Phone: 29.0 mmol/L 21.0-32.0 [facility] Work Phone: Platelets bldon 08-13-2021 Platelets (Bld) [#/Vol] 246 10*3/uL 150-450 [facility] Work Phone: Serum or plasma calcium keyona urement (mass/volume)on 08-13-2021 Calcium [Mass/Vol] 9.7 mg/dL 8.5-10.1 [facility] Work Phone: Serum or plasma creatinine m easurement (mass/volume)on 08-13-2021 Creatinine [Mass/Vol] 1.31 mg/dL 0.55-1.02 [facility] Work Phone: Comment on above: The validity of the calculated GFR & GFRAA in patients over 70 years has not been determined. Clinical correlation is essential. Serum or plasma urea nitroge n measurement (mass/volume)on 08-13-2021 Urea nitrogen [Mass/Vol] 38 mg/dL 7-18 [facility] Work Phone: Thin prep Papanicolaou smear with manual screeningon 08-13-2021 Thin prep Papanicolaou smear with manual screening 4 5-15 [facility] Work Phone: Absolute lymphocyte counton 08-06-2021 Lymphocytes Auto (Unsp spec) [#/Vol] 1.92 10*3/uL 0.83-4.51 [facility] Work Phone: Basophil percentageon 2021 Basophil percentage 102 mg/dL 74-106 [facility] Work Phone: Basophil percentage 138 mmol/L 136-145 [facility] Work Phone: Basophil percentage 4.1 mmol/L 3.5-5.1 [facility] Work Phone: Basophil percentage 106 mmol/L 98-107 [facility] Work Phone: Basophils (Bld) [#/Vol] 8.2 10*3/uL 4.4-11.0 [facility] Work Phone: Basophils (Bld) [#/Vol] 5.3 10*3/uL 2.0-7.7 [facility] Work Phone: Basophils/100 WBC (Bld) 0.5 % 0-1 [facility] Work Phone: Basophils/100 WBC (Bld) 64.7 % 47-70 [facility] Work Phone: Basophils/100 WBC (Bld) 4.3 % 0-5 [facility] Work Phone: Chloride [Moles/Vol] 106 mmol/L 98-107 [facility] Work Phone: Eosinophils/100 WBC (Bld) 4.3 % 0-5 [facility] Work Phone: Glucose [Mass/Vol] 102 mg/dL 74-106 [facility] Work Phone: Comment on above: Fasting Glucose resu lt from 100 to 125 mg/dL suggests IMPAIRED HOMEOSTASIS per A.D.A. criteria. Neutrophils (Bld) [#/Vol] 5.3 10*3/uL 2.0-7.7 [facility] Work Phone: Neutrophils/100 WBC (Bld) 64.7 % 47-70 [facility] Work Phone: Potassium [Moles/Vol] 4.1 mmol/L 3.5-5.1 [facility] Work Phone: Sodium [Moles/Vol] 138 mmol/L 136-145 [facility] Work Phone: WBC (Bld) [#/Vol] 8.2 10*3/uL 4.4-11.0 [facility] Work Phone: Blood erythrocytes count (nu mber/volume)on 08-06-2021 RBC (Bld) [#/Vol] 3.89 10*6/uL 4.2-5.4 [facility] Work Phone: Blood hemoglobin measurement (mass/volume)on 08-06-2021 Hemoglobin (Bld) [Mass/Vol] 10.4 g/dL 12.0-15.0 [facility] Work Phone: Blood lymphocytes/100 leukoc yteson 08-06-2021 Lymphocytes/100 WBC (Bld) 23.4 % 19-41 [facility] Work Phone: Blood monocytes/100 leukocyt eson 08-06-2021 Monocytes/100 WBC (Bld) 6.6 % 0-10 [facility] Work Phone: Blood platelet mean volumeon 08-06-2021 Platelet mean volume (Bld) [Entitic vol] 10.2 fL 6.2-12.0 [facility] Work Phone: Determination of erythrocyte mean corpuscular volume (MCV)on 08-06-2021 MCV (RBC) [Entitic vol] 87.7 fL 81-99 [facility] Work Phone: Hematocrit Auto (Bld) [Volum e fraction]on 08-06-2021 Hematocrit (Bld) [Volume fraction] 34.1 % 37-47 [facility] Work Phone: Laboratory - Chemistry and C hemistry - challengeon 08-06-2021 CO2 [Moles/Vol] 27.0 mmol/L 21.0-32.0 [facility] Work Phone: Urea nitrogen/Creatinine [Mass ratio] 19.4 mg/mg 10-20 [facility] Work Phone: Laboratory - Hematology and Cell countson 08-06-2021 Erythrocyte distribution width (RBC) [Entitic vol] 48.5 fL 35.1-43.9 [facility] Work Phone: Erythrocyte distribution width (RBC) [Ratio] 15.2 % 11.6-14.6 [facility] Work Phone: Immature granulocytes/100 WBC (Bld) 0.500 % 0.0-0.9 [facility] Work Phone: Comment on above: IG% - Immature Granu locytes (promyelocytes, myelocytes and metamyelocytes) > 1% indicates that a LEFT SHIFT is Present. MCH (RBC) [Entitic mass] 26.7 pg 27.0-32.0 [facility] Work Phone: Nucleated RBC/100 WBC (Bld) [Ratio] 0 % 0-5 [facility] Work Phone: MCHC Auto (RBC) [Mass/Vol]on 08-06-2021 MCHC (RBC) [Mass/Vol] 30.5 g/dL 32-36 [facility] Work Phone: No Panel Informationon 08-06 Estimated GFR (MDRD) Amer 50 mL/min >60 [facility] Work Phone: Comment on above: GFR Calc Estimated GFR (MDRD) Non-Af Amer 42 mL/min >60 [facility] Work Phone: Comment on above: Non- GFR Calc 26.7 pg 27.0-32.0 [facility] Work Phone: 15.2 % 11.6-14.6 [facility] Work Phone: 48.5 fl 35.1-43.9 [facility] Work Phone: 0.500 % 0.0-0.9 [facility] Work Phone: 0 % 0-5 [facility] Work Phone: 42 mL/min >60 [facility] Work Phone: 50 mL/min >60 [facility] Work Phone: 19.4 RATIO 10-20 [facility] Work Phone: 27.0 mmol/L 21.0-32.0 [facility] Work Phone: Platelets bldon 08-06-2021 Platelets (Bld) [#/Vol] 253 10*3/uL 150-450 [facility] Work Phone: Serum or plasma calcium keyona urement (mass/volume)on 08-06-2021 Calcium [Mass/Vol] 9.9 mg/dL 8.5-10.1 [facility] Work Phone: Serum or plasma creatinine m easurement (mass/volume)on 08-06-2021 Creatinine [Mass/Vol] 1.34 mg/dL 0.55-1.02 [facility] Work Phone: Comment on above: The validity of the calculated GFR & GFRAA in patients over 70 years has not been determined. Clinical correlation is essential. Serum or plasma urea nitroge n measurement (mass/volume)on 08-06-2021 Urea nitrogen [Mass/Vol] 26 mg/dL 7-18 [facility] Work Phone: Thin prep Papanicolaou smear with manual screeningon 08-06-2021 Thin prep Papanicolaou smear with manual screening 5 5-15 [facility] Work Phone: Absolute lymphocyte counton 07-30-2021 Lymphocytes Auto (Unsp spec) [#/Vol] 1.78 10*3/uL 0.83-4.51 [facility] Work Phone: [phone] Basophil percentageon 2021 Basophils (Bld) [#/Vol] 6.8 10*3/uL 4.4-11.0 [facility] Work Phone: Basophils (Bld) [#/Vol] 4.2 10*3/uL 2.0-7.7 [facility] Work Phone: Basophils/100 WBC (Bld) 0.4 % 0-1 [facility] Work Phone: Basophils/100 WBC (Bld) 61.8 % 47-70 [facility] Work Phone: Basophils/100 WBC (Bld) 4.7 % 0-5 [facility] Work Phone: Eosinophils/100 WBC (Bld) 4.7 % 0-5 [facility] Work Phone: Neutrophils (Bld) [#/Vol] 4.2 10*3/uL 2.0-7.7 [facility] Work Phone: Neutrophils/100 WBC (Bld) 61.8 % 47-70 [facility] Work Phone: WBC (Bld) [#/Vol] 6.8 10*3/uL 4.4-11.0 [facility]: Blood erythrocytes count (nu mber/volume)on 07-30-2021 RBC (Bld) [#/Vol] 3.53 10*6/uL 4.2-5.4 [facility] Work [facility]: Blood hemoglobin measurement (mass/volume)on 07-30-2021 Hemoglobin (Bld) [Mass/Vol] 9.5 g/dL 12.0-15.0 [facility] Work Phone: [phone] Blood lymphocytes/100 leukoc yteson 07-30-2021 Lymphocytes/100 WBC (Bld) 26.1 % 19-41 [facility] Work Phone: Blood monocytes/100 leukocyt eson 07-30-2021 Monocytes/100 WBC (Bld) 6.7 % 0-10 [facility] Work Phone: Blood platelet mean volumeon 07-30-2021 Platelet mean volume (Bld) [Entitic vol] 10.2 fL 6.2-12.0 [facility] Work Phone: Determination of erythrocyte mean corpuscular volume (MCV)on 07-30-2021 MCV (RBC) [Entitic vol] 87.5 fL 81-99 [facility] Work Phone: Hematocrit Auto (Bld) [Volum e fraction]on 07-30-2021 Hematocrit (Bld) [Volume fraction] 30.9 % 37-47 [facility] Work Phone: Laboratory - Hematology and Cell countson 07-30-2021 Erythrocyte distribution width (RBC) [Entitic vol] 49.2 fL 35.1-43.9 [facility] Work Phone: Erythrocyte distribution width (RBC) [Ratio] 15.4 % 11.6-14.6 [facility] Work Phone: Immature granulocytes/100 WBC (Bld) 0.300 % 0.0-0.9 [facility] Work Phone: Comment on above: IG% - Immature Granu locytes (promyelocytes, myelocytes and metamyelocytes) > 1% indicates that a LEFT SHIFT is Present. MCH (RBC) [Entitic mass] 26.9 pg 27.0-32.0 [facility] Work Phone: Nucleated RBC/100 WBC (Bld) [Ratio] 0 % 0-5 [facility] Work Phone: MCHC Auto (RBC) [Mass/Vol]on 07-30-2021 MCHC (RBC) [Mass/Vol] 30.7 g/dL 32-36 [facility]: No Panel Informationon 07-30 26.9 pg 27.0-32.0 [facility] Work Phone: 15.4 % 11.6-14.6 [facility] Work Phone: 49.2 fl 35.1-43.9 [facility] Work Phone: 0.300 % 0.0-0.9 [facility] Work Phone: 0 % 0-5 [facility] Work Phone: Platelets bldon 07-30-2021 Platelets (Bld) [#/Vol] 236 10*3/uL 150-450 [facility] Work Phone: Absolute lymphocyte counton 07-27-2021 Lymphocytes Auto (Unsp spec) [#/Vol] 1.59 10*3/uL 0.83-4.51 [facility] Work Phone: Basophil percentageon 2021 Basophil percentage 81 mg/dL 74-106 [facility] Work Phone: Basophil percentage 138 mmol/L 136-145 [facility] Work Phone: Basophil percentage 4.2 mmol/L 3.5-5.1 [facility] Work Phone: Basophil percentage 107 mmol/L 98-107 [facility] Work Phone: Basophils (Bld) [#/Vol] 6.4 10*3/uL 4.4-11.0 [facility] Work Phone: Basophils (Bld) [#/Vol] 4.1 10*3/uL 2.0-7.7 [facility] Work Phone: Basophils/100 WBC (Bld) 0.3 % 0-1 [facility] Work Phone: Basophils/100 WBC (Bld) 63.2 % 47-70 [facility] Work Phone: Basophils/100 WBC (Bld) 5.1 % 0-5 [facility] Work Phone: Chloride [Moles/Vol] 107 mmol/L 98-107 [facility] Work [facility]: Eosinophils/100 WBC (Bld) 5.1 % 0-5 [facility] Work Phone: Glucose [Mass/Vol] 81 mg/dL 74-106 [facility] Work Phone: Neutrophils (Bld) [#/Vol] 4.1 10*3/uL 2.0-7.7 [facility] Work Phone: Neutrophils/100 WBC (Bld) 63.2 % 47-70 [facility] Work Phone: Potassium [Moles/Vol] 4.2 mmol/L 3.5-5.1 [facility] Work Phone: Sodium [Moles/Vol] 138 mmol/L 136-145 [facility] Work Phone: WBC (Bld) [#/Vol] 6.4 10*3/uL 4.4-11.0 [facility] Work Phone: Blood erythrocytes count (nu mber/volume)on 07-27-2021 RBC (Bld) [#/Vol] 3.70 10*6/uL 4.2-5.4 [facility] Work Phone: Blood hemoglobin measurement (mass/volume)on 07-27-2021 Hemoglobin (Bld) [Mass/Vol] 10.2 g/dL 12.0-15.0 [facility] Work Phone: Blood lymphocytes/100 leukoc yteson 07-27-2021 Lymphocytes/100 WBC (Bld) 24.7 % 19-41 [facility] Work Phone: Blood monocytes/100 leukocyt eson 07-27-2021 Monocytes/100 WBC (Bld) 6.2 % 0-10 [facility] Work Phone: Blood platelet mean volumeon 07-27-2021 Platelet mean volume (Bld) [Entitic vol] 10.5 fL 6.2-12.0 [facility] Work Phone: Determination of erythrocyte mean corpuscular volume (MCV)on 07-27-2021 MCV (RBC) [Entitic vol] 88.1 fL 81-99 [facility] Work Phone: Hematocrit Auto (Bld) [Volum e fraction]on 07-27-2021 Hematocrit (Bld) [Volume fraction] 32.6 % 37-47 [facility] Work Phone: Laboratory - Chemistry and C hemistry - challengeon 07-27-2021 CO2 [Moles/Vol] 25.0 mmol/L 21.0-32.0 [facility] Work Phone: Urea nitrogen/Creatinine [Mass ratio] 21.8 mg/mg 10-20 [facility] Work Phone: Laboratory - Hematology and Cell countson 07-27-2021 Erythrocyte distribution width (RBC) [Entitic vol] 49.3 fL 35.1-43.9 [facility] Work Phone: Erythrocyte distribution width (RBC) [Ratio] 15.5 % 11.6-14.6 [facility] Work Phone: Immature granulocytes/100 WBC (Bld) 0.500 % 0.0-0.9 [facility] Work Phone: Comment on above: IG% - Immature Granu locytes (promyelocytes, myelocytes and metamyelocytes) > 1% indicates that a LEFT SHIFT is Present. MCH (RBC) [Entitic mass] 27.6 pg 27.0-32.0 [facility] Work Phone: Nucleated RBC/100 WBC (Bld) [Ratio] 0 % 0-5 [facility] Work Phone: MCHC Auto (RBC) [Mass/Vol]on 07-27-2021 MCHC (RBC) [Mass/Vol] 31.3 g/dL 32-36 [facility] Work Phone: No Panel Informationon 07-27 Estimated GFR (MDRD) Amer 51 mL/min >60 [facility] Work Phone: Comment on above: GFR Calc Estimated GFR (MDRD) Non-Af Amer 42 mL/min >60 [facility] Work Phone: Comment on above: Non- GFR Calc 27.6 pg 27.0-32.0 [facility] Work Phone: 15.5 % 11.6-14.6 [facility] Work Phone: 49.3 fl 35.1-43.9 [facility] Work Phone: 0.500 % 0.0-0.9 [facility] Work Phone: 0 % 0-5 [facility] Work Phone: 42 mL/min >60 [facility] Work Phone: 51 mL/min >60 [facility] Work Phone: 21.8 RATIO 10-20 [facility] Work Phone: 25.0 mmol/L 21.0-32.0 [facility] Work Phone: Platelets bldon 07-27-2021 Platelets (Bld) [#/Vol] 259 10*3/uL 150-450 [facility] Work Phone: Serum or plasma calcium keyona urement (mass/volume)on 07-27-2021 Calcium [Mass/Vol] 9.1 mg/dL 8.5-10.1 [facility] Work Phone: Serum or plasma creatinine m easurement (mass/volume)on 07-27-2021 Creatinine [Mass/Vol] 1.33 mg/dL 0.55-1.02 [facility] Work Phone: Comment on above: The validity of the calculated GFR & GFRAA in patients over 70 years has not been determined. Clinical correlation is essential. Serum or plasma urea nitroge n measurement (mass/volume)on 07-27-2021 Urea nitrogen [Mass/Vol] 29 mg/dL 7-18 [facility] Work Phone: Thin prep Papanicolaou smear with manual screeningon 07-27-2021 Thin prep Papanicolaou smear with manual screening 6 5-15 [facility] Work Phone: ANAER CULTUREon 07-25-2021 ANAER CULTURE NO GROWTH OF ANAEROBES AFTER 5 DAYS Normal [facility] Comment on above: Order Comment: Trung s: M Performed By: #### L [id number] #### [facility] [address] [place] [address] Order Comment: Trung s: M: RIGHT ELBOW CULTURE ANAEROBIC Performed By: #### M [id number] ####[facility] [id number] [place], [place] [address]Od# [phone] SURG TISSUEon 07-25-2021 SURG TISSUE GRAM STAIN RARE WBC'S NO ORGANISMS SEEN RESULT NO GROWTH AFTER 5 DAYS Normal [facility] Comment on above: Order Comment: Trung s: M: DISTAL HUMERUS TISSUE RIGHT CULTURE AEROBIC Performed By: #### M [id number] ####[facility] [id number] [place], [place] [address]Tj# [phone] SURG TISSUE GRAM STAIN NO WBC'S SEEN NO ORGANISMS SEEN NO GROWTH AFTER 5 DAYS Normal [facility] Comment on above: Order Comment: Trung s: M: RIGHT ELBOW CULTURE AEROBIC Performed By: #### M [id number] ####[facility] [id number] [place], [place] [address]Yl# [phone] Absolute lymphocyte counton 07-23-2021 Lymphocytes Auto (Unsp spec) [#/Vol] 1.36 10*3/uL 0.83-4.51 [facility] Work Phone: [phone] Basophil percentageon 2021 Basophil percentage 87 mg/dL 74-106 [facility] Work Phone: [phone] Basophil percentage 140 mmol/L 136-145 [facility] Work Phone: [phone] Basophil percentage 3.8 mmol/L 3.5-5.1 [facility] Work Phone: [phone] Basophil percentage 106 mmol/L 98-107 [facility] Work Phone: [phone] Basophils (Bld) [#/Vol] 7.0 10*3/uL 4.4-11.0 [facility] Work Phone: Basophils (Bld) [#/Vol] 4.8 10*3/uL 2.0-7.7 [facility] Work Phone: Basophils/100 WBC (Bld) 0.4 % 0-1 [facility] Work Phone: Basophils/100 WBC (Bld) 69.2 % 47-70 [facility] Work Phone: Basophils/100 WBC (Bld) 4.0 % 0-5 [facility] Work Phone: Chloride [Moles/Vol] 106 mmol/L 98-107 [facility] Work Phone: Eosinophils/100 WBC (Bld) 4.0 % 0-5 [facility] Work Phone: Glucose [Mass/Vol] 87 mg/dL 74-106 [facility] Work Phone: Neutrophils (Bld) [#/Vol] 4.8 10*3/uL 2.0-7.7 [facility] Work Phone: Neutrophils/100 WBC (Bld) 69.2 % 47-70 [facility] Work Phone: Potassium [Moles/Vol] 3.8 mmol/L 3.5-5.1 [facility] Work Phone: Sodium [Moles/Vol] 140 mmol/L 136-145 [facility] Work Phone: WBC (Bld) [#/Vol] 7.0 10*3/uL 4.4-11.0 [facility] Work Phone: Blood erythrocytes count (nu mber/volume)on 07-23-2021 RBC (Bld) [#/Vol] 3.48 10*6/uL 4.2-5.4 [facility] Work Phone: Blood hemoglobin measurement (mass/volume)on 07-23-2021 Hemoglobin (Bld) [Mass/Vol] 9.3 g/dL 12.0-15.0 [facility] Work Phone: Blood lymphocytes/100 leukoc yteson 07-23-2021 Lymphocytes/100 WBC (Bld) 19.6 % 19-41 [facility] Work Phone: Blood monocytes/100 leukocyt eson 07-23-2021 Monocytes/100 WBC (Bld) 6.5 % 0-10 [facility] Work Phone: Blood platelet mean volumeon 07-23-2021 Platelet mean volume (Bld) [Entitic vol] 10.9 fL 6.2-12.0 [facility] Work Phone: Determination of erythrocyte mean corpuscular volume (MCV)on 07-23-2021 MCV (RBC) [Entitic vol] 86.8 fL 81-99 [facility] Work Phone: Hematocrit Auto (Bld) [Volum e fraction]on 07-23-2021 Hematocrit (Bld) [Volume fraction] 30.2 % 37-47 [facility] Work Phone: Laboratory - Chemistry and C hemistry - challengeon 07-23-2021 CO2 [Moles/Vol] 29.0 mmol/L 21.0-32.0 [facility] Work Phone: Urea nitrogen/Creatinine [Mass ratio] 26.7 mg/mg 10-20 [facility] Work Phone: Laboratory - Hematology and Cell countson 07-23-2021 Erythrocyte distribution width (RBC) [Entitic vol] 48.8 fL 35.1-43.9 [facility] Work Phone: Erythrocyte distribution width (RBC) [Ratio] 15.3 % 11.6-14.6 [facility] Work Phone: Immature granulocytes/100 WBC (Bld) 0.300 % 0.0-0.9 [facility] Work Phone: Comment on above: IG% - Immature Granu locytes (promyelocytes, myelocytes and metamyelocytes) > 1% indicates that a LEFT SHIFT is Present. MCH (RBC) [Entitic mass] 26.7 pg 27.0-32.0 [facility] Work Phone: Nucleated RBC/100 WBC (Bld) [Ratio] 0 % 0-5 [facility] Work Phone: MCHC Auto (RBC) [Mass/Vol]on 07-23-2021 MCHC (RBC) [Mass/Vol] 30.8 g/dL 32-36 [facility] Work Phone: No Panel Informationon 07-23 Estimated GFR (MDRD) Amer 57 mL/min >60 [facility] Work Phone: Comment on above: GFR Calc Estimated GFR (MDRD) Non-Af Amer 47 mL/min >60 [facility] Work Phone: Comment on above: Non- GFR Calc 26.7 pg 27.0-32.0 [facility] Work Phone: 15.3 % 11.6-14.6 [facility] Work Phone: 48.8 fl 35.1-43.9 [facility] Work Phone: 0.300 % 0.0-0.9 [facility] Work Phone: 0 % 0-5 [facility] Work Phone: [phone] 47 mL/min >60 [facility] Work Phone: 57 mL/min >60 [facility] Work Phone: 26.7 RATIO 10-20 [facility] Work Phone: [phone] 29.0 mmol/L 21.0-32.0 [facility] Work Phone: Platelets bldon 03-10-2022 Platelets (Bld) [#/Vol] 224 10*3/uL 150-450 [facility] Work Phone: Serum or plasma calcium keyona urement (mass/volume)on 07-23-2021 Calcium [Mass/Vol] 8.8 mg/dL 8.5-10.1 [facility] Work Phone: Serum or plasma creatinine m easurement (mass/volume)on 07-23-2021 Creatinine [Mass/Vol] 1.20 mg/dL 0.55-1.02 [facility] Work Phone: Comment on above: The validity of the calculated GFR & GFRAA in patients over 70 years has not been determined. Clinical correlation is essential. Serum or plasma urea nitroge n measurement (mass/volume)on 07-23-2021 Urea nitrogen [Mass/Vol] 32 mg/dL 7-18 [facility] Work Phone: Thin prep Papanicolaou smear with manual screeningon 07-23-2021 Thin prep Papanicolaou smear with manual screening 5 5-15 [facility] Work Phone: BMPon 07-22-2021 Anion gap [Moles/Vol] 10 mmol/L Normal 5-16 [facility] Comment on above: Order Comment: Campu s: M Performed By: #### L 500.69897, L500.44684 #### [facility] [place] [address] Calcium [Mass/Vol] 8.9 mg/dL Normal 8.5-10.5 [facility] Comment on above: Order Comment: Campu s: M Result Comment: NOTE NEW NORMAL RANGE DUE TO REAGENT CHANGE Performed By: #### L 500.46036, L500.74807 #### [facility] [address] [place] [address] Chloride [Moles/Vol] 106 mmol/L Normal 98-107 [facility] Comment on above: Order Comment: Campu s: M Performed By: #### L 500.03992, L500.72743 #### [facility] [place] [address] CO2 [Moles/Vol] 25.0 mmol/L Normal 21-32 [facility] Comment on above: Order Comment: Campu s: M Performed By: #### L 500.27325, L5.90592 #### [facility] [address] [place] [address] Creatinine [Mass/Vol] 1.32 mg/dL High 0.510-0.950 [facility] Comment on above: Order Comment: Campu s: M Result Comment: Nash ents receiving either N-Acetylcysteine (NAC) or Metamizole prior to venipuncture, may have falsely depressed results. Performed By: #### L 500.67721, L5.18462 #### [facility] [address] [place] [address] Glucose [Mass/Vol] 110 mg/dL High 70-100 [facility] Comment on above: Order Comment: Campu s: M Result Comment: 70-1 00- Normal Fasting; 100-125 Impaired Fasting; greater than 126 on more than one result- Diabetes. ADA guidelines. Results may be falsely elevated after the administration of Sulfapyridine. Results may be falsely depressed after the administration of Sulfasalazine. Performed By: #### L 500.54714, L5.08854 #### [facility] [address] [place] [address] Potassium [Moles/Vol] 4.0 mmol/L Normal 3.5-5.1 [facility] Comment on above: Order Comment: Campu s: M Performed By: #### L 500.20556, L5.38007 #### [facility] [address] [place], [place] [id number] Sodium [Moles/Vol] 141 mmol/L Normal 136-145 [facility] Comment on above: Order Comment: Campu s: M Performed By: #### L 500.86475, L500.80669 #### [facility] [address] [place] [address] Urea nitrogen [Mass/Vol] 34 mg/dL High 7- [facility] Comment on above: Order Comment: Campu s: M Performed By: #### L 500.73191, L500.88537 #### [facility] [address] [place] [address] Urea nitrogen/Creatinine [Mass ratio] 26 mg/mg High 15-24 [facility] Comment on above: Order Comment: Campu s: M Performed By: #### L 500.74000, L500.03531 #### [facility] [address] [place] [address] CBC W/DIFFon 07-22-2021 BASO ABS 0.00 K/CU MM Normal 0-0.2 [facility] Comment on above: Order Comment: Campu s: M Performed By: #### L 500.33688, L500.61407 #### [facility] [address] [place] [address] Basophils/100 WBC (Bld) 0.3 % Normal 0-2 M [facility] Comment on above: Order Comment: Campu s: M Performed By: #### L 500.29283, L500.73660 #### [facility] [address] [place] [address] EOS ABS 0.30 K/CU MM Normal 0-0.5 [facility] Comment on above: Order Comment: Campu s: M Performed By: #### L 500.63360, L500.26573 #### [facility] [address] [place] [address] Eosinophils/100 WBC (Bld) 4.0 % Normal 0-5 [facility] Comment on above: Order Comment: Campu s: M Performed By: #### L 500.77106, L500.86433 #### [facility] [address] [place] [address] Erythrocyte distribution width (RBC) [Ratio] 15.2 % High 11-14.5 [facility] Comment on above: Order Comment: Campu s: M Performed By: #### L 500.32945, L500.41395 #### [facility] [address] [place] [address] Hematocrit (Bld) [Volume fraction] 27.9 % Low 35.0-47.0 [facility] Comment on above: Order Comment: Campu s: M Performed By: #### L 500.50966, L5.63681 #### [facility] [address] [place] [address] Hemoglobin (Bld) [Mass/Vol] 8.9 g/dL Low 11.5-15.5 [facility] Comment on above: Order Comment: Campu s: M Performed By: #### L 500.94760, L5.53057 #### [facility] [address] [place] [address] IMMATR GRAN ABS 0.00 K/CU MM Normal Less than 2 [facility] Comment on above: Order Comment: Campu s: M Performed By: #### L 500.94471, L5.10647 #### [facility] [address] [place] [address] IMMATURE GRAN % 0.3 % Normal Less than 2 [facility] Comment on above: Order Comment: Campu s: M Performed By: #### L 500.73829, L500.81384 #### [facility] [address] [place] [address] LYMPH ABS 1.60 K/CU MM Normal 0.9-4.4 [facility] Comment on above: Order Comment: Campu s: M Performed By: #### L 500.03695, L500.91134 #### [facility] [address] [place] [address] Lymphocytes/100 WBC (Bld) 25.2 % Normal 20-40 [facility] Comment on above: Order Comment: Campu s: M Performed By: #### L 500.69344, L500.30598 #### [facility] [address] [place] [address] MCHC (RBC) [Mass/Vol] 31.9 g/dL Low 32.0-36.0 [facility] Comment on above: Order Comment: Campu s: M Performed By: #### L 500.78904, L5.97183 #### [facility] [address] [place] [address] MCV (RBC) [Entitic vol] 85.3 fL Normal 80.0-99.0 [facility] Comment on above: Order Comment: Campu s: M Performed By: #### L 500.24993, L5.80748 #### [facility] [address] [place] [address] MONO ABS 0.30 K/CU MM Normal 0.1-1.1 [facility] Comment on above: Order Comment: Campu s: M Performed By: #### L 500.87699, L5.43833 #### [facility] [address] [place] [address] Monocytes/100 WBC (Bld) 4.8 % Normal 2-10 M [facility] Comment on above: Order Comment: Campu s: M Performed By: #### L 500.82736, L5.20632 #### [facility] [address] [place] [address] NEUTROPHIL ABS 4.20 K/CU MM Normal 2.0-8.3 [facility] Comment on above: Order Comment: Campu s: M Performed By: #### L 500.98015, L500.67332 #### [facility] [address] [place] [address] Neutrophils/100 WBC (Bld) 65.4 % Normal 45-75 [facility] Comment on above: Order Comment: Campu s: M Performed By: #### L 500.73682, L5.94168 #### [facility] [address] [place] [address] Nucleated RBC/100 WBC (Bld) [Ratio] 0.0 % Normal Less than 1 [facility] Comment on above: Order Comment: Campu s: M Performed By: #### L 500.93014, L5.03030 #### [facility] [address] [place] [address] Platelet mean volume (Bld) [Entitic vol] 10.5 fL Normal 9.4-12.4 [facility] Comment on above: Order Comment: Campu s: M Performed By: #### L 500.96426, L5.89707 #### [facility] [address] [place] [address] PLT 179 K/CU MM Normal 150-450 [facility] Comment on above: Order Comment: Campu s: M Performed By: #### L 500.57036, L5.71635 #### [facility] [address] [place] [address] RBC 3.27 M/CU MM Low 3.90-5.30 [facility] Comment on above: Order Comment: Campu s: M Performed By: #### L 500.91418, L500.01806 #### [facility] [address] [place] [address] WBC 6.4 K/CUMM Normal 4.5-11.0 [facility] Comment on above: Order Comment: Campu s: M Performed By: #### L 500.50329, L500.65215 #### [facility] [address] [place] [address] GFR ESTon 07-22-2021 IF AMER 48 Normal [facility] Comment on above: Order Comment: Campu s: M Performed By: #### L 500.40868, L500.96357 #### [facility] [address] [place] [address] IF non-AFR AMER 40 Normal [facility] Comment on above: Order Comment: Campu s: M Performed By: #### L 500.17026, L500.44548 #### [facility] [address] [place] [address] GLUCOSE METERon 07-22-2021 Glucose [Mass/Vol] 216 mg/dL High 85-125 [facility] Comment on above: Performed By: #### L 500.08426 ####[facility] [id number] [place], [place] [address]Ti# [phone] Glucose [Mass/Vol] 112 mg/dL Normal 85-125 [facility] OTPNon 07-22-2021 OT Progress Note Normal [facility] OTPN Occupational Therapy Inpatient Treatment Note Medical Diagnosis: antibiotic spacer placement on 04/13/2021 s/p removal of antibiotic spacer and right total elbow by Dr. Stout on 07/20/21 OCCUPATIONAL PROFILE AND HISTORY Demographics: Age: 71Y Gender: Female Primary Language: Hong Konger Preferred Language: Hong Konger Referring Service/Team: Orthopedics Rehabilitation Precautions/Restrict ions: fall [...] and G-Code Modifier = CK Functional Mobility: [facility] PATIENT NAME: JOSELINE ELLIS [address] [facility] [address] [facility] [address] [place] MEDICAL REC #: [id number] [place] [address] ADMIT DATE: SERVICE DATE: 07/22/21 Occupational Therapy [...] care discharge, the following is currently recommended: [facility] PATIENT NAME: JOSELINE ELLIS [address] [place] MEDICAL REC #: [id number] [place] [address] ADMIT DATE: SERVICE DATE: 07/22/21 Occupational Therapy Progress Note ATTENDING PHY: Rajwinder Stout MD Inpatient Occupational Therapy, LESS THAN 60 minutes per day. Equipment Recommended: n/a Recommended Consults: None currently. Development of Plan of Care: Patient participated in plan of care development today. If there are any questions regarding this service, please contact the Acute Therapy Department at extension [phone] Communication to Nursing: No updates at this time. Location of Patient at End of Therapy Session: In chair, (more content not included)... Normal [facility] 07-22-2021 PROG [facility] Patient Name: JOSELINE ELLIS [address] Date of : [address] [place] [address] Unit Number: [id number] Progress Note-Hospitalist Patient Status: REG SDC Attending Doctor: Rajwinder Stotu MD Service Date: 07/22/21 9392 Chief Complaint Chief Complaint Medical management Subjective [...] cervical lymphadenopathy. Diagnostic Data: Lab 24hr (CBC/BMP [facility]) 07/22/21 1214: SARS-CoV-2 (PCR) NEGATIVE 07/22/21 [...] patient was discharged today by orthopedic to detention. Disclaimer This dictation was created using voice recognition software. Phonetic and/or minor grammatical errors may exist. eSign Date and Time Hung Chong MD Verified/Reviewed by 07/22/21 1540 [facility] Progress Note-Hospitalist [facility] PROG.ORTHOon 07-22-2021 PROG.[facility] Patient Name: JOSELINE ELLIS [address] Date of : [address] [place] [address] Unit Number: [id number] Progress Note-Ortho Patient Status: REG [facility] Attending Doctor: Rajwinder Stout MD Service Date: 07/22/21 1049 Progress Note - Ortho Subjective S: (2 ROS minimum) Patient is doing well today. She stayed because she is pending a ride back to the [facility]. All cultures are negative to date. Patient's [...] Rajwinder Stout MD Verified/Reviewed by 07/22/21 1050 [facility] Progress Note-Ortho [facility] 07-22-2021 PT Progress Note [facility] PTPN Physical Therapy Inpatient Treatment Note Medical Diagnosis: antibiotic spacer placement on 04/13/2021 s/p removal of antibiotic spacer and right total elbow by Dr. Stout on 07/20/21 Demographics: Age: 71Y Gender: Female Primary Language: Hong Konger Preferred Language: Hong Konger Rehabilitation Precautions/Restrict ions: fall risk, NWB (R) UE SUBJECTIVE Patient Report: I am going back to the detention. Patient/Caregiver Goals: go home Pain: Patient currently [...] Transfer training, sitting and standing balance, gait [facility] PATIENT NAME: VENKATESHJOSELINE [address] MEDICAL REC #: [id number] [place] [address] ADMIT DATE: SERVICE DATE: 07/22/21 Physical Therapy [...] contact the Acute Therapy Department at extension [phone] Location of Patient at End of Therapy Session: In chair, call light within reach (R) UE propped w/ pillow. Services: Total Billed: 24 minutes (Timed: 24, Untimed: 0) 24.00 Timed: [41815] GAIT TRAIN EA 15 MIN 0.00 Untimed: [] PT Treatment- General ORDER Signed by: VIRGINIA PIERCE PTA 07/22/2021 12:09:20 [facility] PATIENT NAME: JOSELINE ELLIS [facility] [address] [place] MEDICAL REC #: [id number] [place] [address] ADMIT DATE: SERVICE DATE: 07/22/21 Physical Therapy Progress Note ATTENDING PHY: Rajwinder Stout MD - CoSigned By: Caitlin Stubbs, PT, DPT 07/22/2021 3:37:00 PM [facility]: [facility] [address] [place] MEDICAL REC #: [id number] [place] [address] ADMIT DATE: SERVICE DATE: 07/22/21 Physical Therapy Progress Note ATTENDING PHY: Rajwinder Stout MD Normal [facility] [id number] 07-22-2021 SARS-CoV-2 (COVID-19) RNA DAE+probe Ql (Unsp spec) Negative Invalid Interpretation Code Negative [facility] Comment on above: Order Comment: Fredisu s: [...] performed by PCR. Performed By: #### L 770.99113 #### [facility] [address] [place] [address] # [phone] BMPon 07-21-2021 Anion gap [Moles/Vol] 11 mmol/L Normal 5-16 [facility] Comment on above: Order Comment: Campu s: M Performed By: #### L 500.60110, L500.58598 ####[facility] [id number] [place], [place] [address]Yp# [phone] Calcium [Mass/Vol] 9.0 mg/dL Normal 8.5-10.5 [facility] Comment on above: Order Comment: Campu s: M Result Comment: NOTE NEW NORMAL RANGE DUE TO REAGENT CHANGE Performed By: #### L 500.61394, L500.34973 ####[facility] [id number] [place], [place] [address]Uv# [phone] Chloride [Moles/Vol] 105 mmol/L Normal 98-107 [facility] Comment on above: Order Comment: Campu s: M Performed By: #### L 500.47095, L500.23027 ####[facility] [id number] [place], [place] [address]Ka# [phone] CO2 [Moles/Vol] 24.0 mmol/L Normal 21-32 [facility] Comment on above: Order Comment: Campu s: M Performed By: #### L 500.49005, L500.26184 ####[facility] [id number] [place], [place] [address]Xi# [phone] Creatinine [Mass/Vol] 1.21 mg/dL High 0.510-0.950 [facility] Comment on above: Order Comment: Campu s: M Result Comment: Nash ents receiving either N-Acetylcysteine (NAC) or Metamizole prior to venipuncture, may have falsely depressed results. Performed By: #### L 500.44285, L500.45539 ####[facility] [id number] [place] [address]De# [phone] Glucose [Mass/Vol] 149 mg/dL High 70-100 [facility] Comment on above: Order Comment: Campu s: M Result Comment: 70-1 00- Normal Fasting; 100-125 Impaired Fasting; greater than 126 on more than one result- Diabetes. ADA guidelines. Results may be falsely elevated after the administration of Sulfapyridine. Results may be falsely depressed after the administration of Sulfasalazine. Performed By: #### L 500.27000, L500.78436 ####[facility] [id number] [place], [place] [address]Mc# [phone] Potassium [Moles/Vol] 4.5 mmol/L Normal 3.5-5.1 [facility] Comment on above: Order Comment: Campu s: M Result Comment: Slig ht Hemolysis, Result may be affected. Performed By: #### L 500.40971, L500.90768 ####[facility] [id number] [place], [place] [address]Vd# [phone] Sodium [Moles/Vol] 140 mmol/L Normal 136-145 [facility] Comment on above: Order Comment: Campu s: M Performed By: #### L 500.40693, L500.41169 ####[facility] [id number] [place], [place] [address]Ax# [phone] Urea nitrogen [Mass/Vol] 29 mg/dL High 7-26 [facility] Comment on above: Order Comment: Campu s: M Performed By: #### L 500.09395, L500.17657 ####[facility] [id number] [place], [place] [address]Ul# [phone] Urea nitrogen/Creatinine [Mass ratio] 24 mg/mg Normal 15-24 [facility] Comment on above: Order Comment: Campu s: M Performed By: #### L 500.03207, L500.65387 ####[facility] [id number] [place], [place] [address]Ad# [phone] CBC W/DIFFon 07-21-2021 BASO ABS 0.00 K/CU MM Normal 0-0.2 [facility] Comment on above: Order Comment: Campu s: M Performed By: #### L 200.01331 #### [facility] [address] [place] [address] Basophils/100 WBC (Bld) 0.2 % Normal 0-2 M [facility] Comment on above: Order Comment: Campu s: M Performed By: #### L 200.12959 #### [facility] [address] [place] [address] EOS ABS 0.00 K/CU MM Normal 0-0.5 [facility] Comment on above: Order Comment: Campu s: M Performed By: #### L 200.98701 #### [facility] [address] [place] [address] Eosinophils/100 WBC (Bld) 0.5 % Normal 0-5 [facility] Comment on above: Order Comment: Campu s: M Performed By: #### L .42620 #### [facility] [address] [place] [address] Erythrocyte distribution width (RBC) [Ratio] 15.1 % High 11-14.5 [facility] Comment on above: Order Comment: Campu s: M Performed By: #### L 200.35940 #### [facility] [address] [place] [address] Hematocrit (Bld) [Volume fraction] 29.0 % Low 35.0-47.0 [facility] Comment on above: Order Comment: Campu s: M Performed By: #### L 200.34386 #### [facility] [address] [place] [address] Hemoglobin (Bld) [Mass/Vol] 9.2 g/dL Low 11.5-15.5 [facility] Comment on above: Order Comment: Campu s: M Performed By: #### L 200.32813 #### [facility] [address] [place] [address] IMMATR GRAN ABS 0.00 K/CU MM Normal Less than 2 [facility] Comment on above: Order Comment: Campu s: M Performed By: #### L 200.24386 #### [facility] [address] [place] [address] IMMATURE GRAN % 0.4 % Normal Less than 2 [facility] Comment on above: Order Comment: Campu s: M Performed By: #### L 200.71485 #### [facility] [address] [place] [address] LYMPH ABS 0.90 K/CU MM Normal 0.9-4.4 [facility] Comment on above: Order Comment: Campu s: M Performed By: #### L 200.09976 #### [facility] [address] [place] [address] Lymphocytes/100 WBC (Bld) 10.6 % Low 20-40 [facility] Comment on above: Order Comment: Campu s: M Performed By: #### L 200.81113 #### [facility] [address] [place] [address] MCHC (RBC) [Mass/Vol] 31.7 g/dL Low 32.0-36.0 [facility] Comment on above: Order Comment: Campu s: M Performed By: #### L 200.65863 #### [facility] [address] [place] [address] MCV (RBC) [Entitic vol] 85.5 fL Normal 80.0-99.0 [facility] Comment on above: Order Comment: Campu s: M Performed By: #### L 200.14006 #### [facility] [address] [place] [address] MONO ABS 0.40 K/CU MM Normal 0.1-1.1 [facility] Comment on above: Order Comment: Campu s: M Performed By: #### L 200.61674 #### [facility] [address] [place], [place] [address] Monocytes/100 WBC (Bld) 4.9 % Normal 2-10 M [facility] Comment on above: Order Comment: Campu s: M Performed By: #### L 200.36429 #### [facility] [address] [place] [address] NEUTROPHIL ABS 7.20 K/CU MM Normal 2.0-8.3 [facility] Comment on above: Order Comment: Campu s: M Performed By: #### L 200.54180 #### [facility] [address] [place] [address] Neutrophils/100 WBC (Bld) 83.4 % High 45-75 [facility] Comment on above: Order Comment: Campu s: M Performed By: #### L 200.56444 #### [facility] [address] [place] [address] Nucleated RBC/100 WBC (Bld) [Ratio] 0.0 % Normal Less than 1 [facility] Comment on above: Order Comment: Campu s: M Performed By: #### L 200.24392 #### [facility] [address] [place] [address] Platelet mean volume (Bld) [Entitic vol] 10.7 fL Normal 9.4-12.4 [facility] Comment on above: Order Comment: Campu s: M Performed By: #### L 200.84683 #### [facility] [address] [place] [address] PLT 222 K/CU MM Normal 150-450 [facility] Comment on above: Order Comment: Campu s: M Performed By: #### L 200.42438 #### [facility] [address] [place] [address] RBC 3.39 M/CU MM Low 3.90-5.30 [facility] Comment on above: Order Comment: Campu s: M Performed By: #### L 200.14409 #### [facility] [address] [place] [address] WBC 8.6 K/CUMM Normal 4.5-11.0 [facility] Comment on above: Order Comment: Campu s: M Performed By: #### L 200.97494 #### [facility] [address] [place] [address] GFR ESTon 07-21-2021 IF AMER 53 Normal [facility] Comment on above: Order Comment: Campu s: M Performed By: #### L 500.12686, L500.90694 ####[facility] [id number] [place], [place] [address]Es# [phone] IF non-AFR AMER 44 Normal [facility] Comment on above: Order Comment: Campu s: M Performed By: #### L 500.77395, L500.51899 ####[facility] [id number] [place], [place] [address]Vx# [phone] GLUCOSE METERon 07-21-2021 Glucose [Mass/Vol] 108 mg/dL Normal 85-125 [facility] Glucose [Mass/Vol] 112 mg/dL Normal 85-125 [facility] Glucose [Mass/Vol] 198 mg/dL High 85-125 [facility] Glucose [Mass/Vol] 162 mg/dL High 85-125 [facility] OR.OPRPTon 07-21-2021 Operative Report Normal [facility] OR.OPRPT [facility] Patient Name: JOSELINE ELLIS [address] [place] [address] Date of : [address] [place] [address] Unit Number: [id number] Operative Report Patient Status: [facility] Attending Doctor: Rajwinder Stout MD Service Date: [...] referred to me by Dr. Guy in [place]. Last fall the patient undergone right distal [...] over this. (more content not included)... Normal [facility] OTARon 07-21-2021 OT Assessment Report [facility] PROG.ORTHOon 07-21-2021 PROG.ORTHO [facility] Patient Name: JOSELINE ELLIS [address] Date of : [address] [place] [address] Unit Number: [id number] Progress Note-Ortho Patient Status: REG SDC Attending [...] all digits. Diagnostic Data Lab 24hr (CBC/BMP [facility]) 07/21/21 1117: Whole Bld Glucose 198 [...] Rajwinder Stout MD Verified/Reviewed by 07/21/21 1209 [facility] Progress Note-Ortho [facility] PTARon 07-21-2021 PT Assessment Report [facility] 07-21-2021 Prog/Sign Off Note-Hospitalist [facility] Patient Name: JOSELINE ELLIS [address] Date of : [address] [place] [address] Unit Number: [id number] Prog/Sign Off Note-Hospitalist Patient Status: REG SDC [...] Chana Foreman MD Verified/Reviewed by 07/21/21 1121 [facility] AND LAT 2 VWS RTon [...] BENITO M.D. Signed By: NADJA BENITO M.D. [facility] GLUCOSE METERon 07-20-2021 Glucose [Mass/Vol] 216 mg/dL High 85-125 [facility] Glucose [Mass/Vol] 205 mg/dL High 85-125 [facility] Glucose [Mass/Vol] 139 mg/dL High 85-125 [facility] HP.Delvin 07-20-2021 CONSULTATION-H&P Normal [facility] Patient Name: JOSELINE ELLIS [address] Date of : [address] [place] [address] Unit Number: [id number] CONSULTATION-HandP Patient Status: REG [facility] Attending Doctor: Rajwinder Stout MD Service Date: 07/20/21 1509 History of Present Illness Referring Physician Rajwinder Stout MD Consulted Provider Chana Foreman MD Source of Information Other, Patient Reason for Consult medical management History of Present Illness Patient is a 71-year-old female with a past medical history significant for hypertension, hyperlipidemia, diabetes, paroxysmal A. fib who is being admitted to [facility] for removal of antibiotic spacer and right [...] Recreational Drugs. Social Hx Currently resides at [facility] Advance Directives Advance Directives Full Code Allergies/Home [...] 07/20/21 0853 by KATARZYNA MORTON HYDROcodone BIT/APAP* (Arroyo 5-325 Tab*) 1 EACH TABLET 1 EACH [...] Metformin HCl (Metformin HCl ER) 1,000 MG [id number] 1,000 MG PO BID, Ref 0 (Reported) [...] Last Act (more content not included)... Normal [facility] MRSA PCRon 07-20-2021 MRSA PCR Negative Normal NEGATIVE [facility] Comment on above: Order Comment: Trung s: M Result Comment: WINSTON FRANCO NOTE: TESTING DONE BY PCR TECHNOLOGY. The SA Nasal complete MRSA assay on the [employer] GeneXpert has not been validated for use on patients under 21 years of age. All patients under 21 years of age, run on the GeneXpert will be confirmed by a Blood [place] plate, followed by an LATISHA, to confirm MRSA. Performed By: #### L 200.44717 #### [facility] [address] [place] [address] SA PCR Negative Normal NEGATIVE [facility] Comment on above: Order Comment: Trung s: M Result Comment: WINSTON FRANCO NOTE: TESTING DONE BY PCR TECHNOLOGY. Performed By: #### L 200.68112 #### [facility] [address] [place] [address] PATIENT RETYPEon 07-20-2021 RETYPE INTERP Positive Normal [facility] [id number] 07-20-2021 SARS-CoV-2 (COVID-19) RNA ADE+probe Ql (Unsp spec) Negative Invalid Interpretation Code Negative [facility] Comment on above: Order Comment: Trung serna: [...] performed by PCR. Performed By: #### L 500.01689, L500.53109 #### [facility] [address] [place], [place] [address] TSon 07-20-2021 ABO and Rh group Nom (Bld) Blood group A Rh(D) positive Normal [facility] Comment on above: Order Comment: Trung srena: M Absolute lymphocyte counton 07-18-2021 Lymphocytes Auto (Unsp spec) [#/Vol] 1.93 10*3/uL 0.83-4.51 [facility] Work Phone: Basophil percentageon 2021 Basophils (Bld) [#/Vol] 7.4 10*3/uL 4.4-11.0 [facility] Work Phone: [phone] Basophils (Bld) [#/Vol] 4.7 10*3/uL 2.0-7.7 [facility] Work Phone: [phone] Basophils/100 WBC (Bld) 0.5 % 0-1 [facility] Work Phone: [phone] Basophils/100 WBC (Bld) 62.6 % 47-70 [facility] Work Phone: [phone] Basophils/100 WBC (Bld) 4.6 % 0-5 [facility] Work Phone: [phone] Eosinophils/100 WBC (Bld) 4.6 % 0-5 [facility] Work Phone: [phone] Neutrophils (Bld) [#/Vol] 4.7 10*3/uL 2.0-7.7 [facility] Work Phone: Neutrophils/100 WBC (Bld) 62.6 % 47-70 [facility] Work Phone: [phone] WBC (Bld) [#/Vol] 7.4 10*3/uL 4.4-11.0 [facility] Work Phone: Blood erythrocytes count (nu mber/volume)on 07-18-2021 RBC (Bld) [#/Vol] 3.81 10*6/uL 4.2-5.4 [facility] Work Phone: Blood hemoglobin measurement (mass/volume)on 07-18-2021 Hemoglobin (Bld) [Mass/Vol] 10.3 g/dL 12.0-15.0 [facility] Work Phone: Blood lymphocytes/100 leukoc yteson 07-18-2021 Lymphocytes/100 WBC (Bld) 26.0 % 19-41 [facility] Work Phone: [phone] Blood monocytes/100 leukocyt eson 07-18-2021 Monocytes/100 WBC (Bld) 5.9 % 0-10 [facility] Work Phone: Blood platelet mean volumeon 07-18-2021 Platelet mean volume (Bld) [Entitic vol] 10.6 fL 6.2-12.0 [facility] Work Phone: Determination of erythrocyte mean corpuscular volume (MCV)on 07-18-2021 MCV (RBC) [Entitic vol] 85.8 fL 81-99 [facility] Work Phone: Hematocrit Auto (Bld) [Volum e fraction]on 07-18-2021 Hematocrit (Bld) [Volume fraction] 32.7 % 37-47 [facility] Work Phone: Laboratory - Hematology and Cell countson 07-18-2021 Erythrocyte distribution width (RBC) [Entitic vol] 48.2 fL 35.1-43.9 [facility] Work Phone: Erythrocyte distribution width (RBC) [Ratio] 15.3 % 11.6-14.6 [facility] Work Phone: Immature granulocytes/100 WBC (Bld) 0.400 % 0.0-0.9 [facility] Work Phone: Comment on above: IG% - Immature Granu locytes (promyelocytes, myelocytes and metamyelocytes) > 1% indicates that a LEFT SHIFT is Present. MCH (RBC) [Entitic mass] 27.0 pg 27.0-32.0 [facility] Work Phone: Nucleated RBC/100 WBC (Bld) [Ratio] 0 % 0-5 [facility] Work Phone: MCHC Auto (RBC) [Mass/Vol]on 07-18-2021 MCHC (RBC) [Mass/Vol] 31.5 g/dL 32-36 [facility] Work Phone: No Panel Informationon 07-18 27.0 pg 27.0-32.0 [facility] Work Phone: 15.3 % 11.6-14.6 [facility] Work Phone: 48.2 fl 35.1-43.9 [facility] Work Phone: 0.400 % 0.0-0.9 [facility] Work Phone: 0 % 0-5 [facility] Work Phone: Platelets bldon 07-18-2021 Platelets (Bld) [#/Vol] 244 10*3/uL 150-450 [facility] Work Phone: Whole blood hemoglobin A1c/t otal hemoglobin ratio (mass fraction)on 07-18-2021 HbA1c (Bld) [Mass fraction] 6.1 % 3.8-5.6 [facility] Work Phone: Comment on above: Normal < 5.7 % Predi abetic 5.7 - 6.4 % Diabetic >or= 6.5 % Please note range changes. Bacteria identified Cx Nom ( U)on 07-15-2021 Culture, urine Escherichia coli [facility] Work Phone: Basophil percentageon 2021 Basophil percentage 0-5 SEEN /hpf 0-5 [facility] Work Phone: Bilirubin Test strip Ql (U)o n 07-15-2021 Bilirubin Ql (U) Negative Negative [facility] Work Phone: Culture, urineon 07-15-2021 Bacteria identified Cx Nom (U) Escherichia coli [facility] Work Phone: Ketones Test strip Ql (U)on 07-15-2021 Ketones Ql (U) Negative Negative [facility] Work Phone: Mucus LM Ql (Urine sed)on Mucus Ql (Urine sed) 0 SEEN /hpf [facility] Work Phone: Nitrite Test strip Ql (U)on 07-15-2021 Nitrite Ql (U) Positive Negative [facility] Work Phone: Protein Test strip Ql (U)on 07-15-2021 Protein Ql (U) Negative Negative [facility] Work Phone: Squamous epithelial cells de tection in urine sediment by light microscopyon 07-15-2021 Epithelial cells.squamous LM Ql (Urine sed) 0-5 SEEN /hpf 5-10 [facility] Work Phone: Urine blood detectionon 03-0 RBC Ql (U) Negative Negative [facility] Work Phone: RBC Ql (U) 0 SEEN /hpf 0-5 [facility] Work Phone: Urine clarityon 07-15-2021 Clarity (U) Sl. Cloudy Clear [facility] Work Phone: Urine color determinationon 07-15-2021 Color (U) Yellow Yellow [facility] Work Phone: Urine glucose detectionon Glucose Ql (U) Normal mg/dl Normal [facility] Work Phone: Urine leukocyte esterase det ection by dipstickon 07-15-2021 Leukocyte esterase Test strip Ql (U) 25 /ul Negative [facility] Work Phone: Urine pHon 07-15-2021 pH (U) 5.0 [pH] 5.0 - 8.0 [facility] Work Phone: Urine sediment bacteria coun t by microscopy (number/high power field)on 07-15-2021 Bacteria LM.HPF (Urine sed) [#/Area] 3 /[HPF] None Seen [facility] Work Phone: Urine specific gravity measu rementon 07-15-2021 Specific gravity (U) [Rel density] 1.015 1.002-1.030 [facility] Work Phone: Urobilinogen Auto test strip Ql (U)on 07-15-2021 Urobilinogen Ql (U) Normal mg/dl Normal [facility] Work Phone: Basophil percentageon 2021 Basophil percentage 102 mg/dL 74-106 [facility] Work Phone: Basophil percentage 138 mmol/L 136-145 [facility] Work [facility]: Basophil percentage 4.3 mmol/L 3.5-5.1 [facility] Work Phone: Basophil percentage 106 mmol/L 98-107 [facility] Work Phone: Basophils (Bld) [#/Vol] 9.5 10*3/uL 4.4-11.0 [facility] Work Phone: Chloride [Moles/Vol] 106 mmol/L 98-107 [facility] Work Phone: Glucose [Mass/Vol] 102 mg/dL 74-106 [facility] Work Phone: Comment on above: Fasting Glucose resu lt from 100 to 125 mg/dL suggests IMPAIRED HOMEOSTASIS per A.D.A. criteria. Potassium [Moles/Vol] 4.3 mmol/L 3.5-5.1 [facility] Work Phone: Sodium [Moles/Vol] 138 mmol/L 136-145 [facility] Work Phone: WBC (Bld) [#/Vol] 9.5 10*3/uL 4.4-11.0 [facility] Work Phone: Blood erythrocytes count (nu mber/volume)on 07-14-2021 RBC (Bld) [#/Vol] 4.18 10*6/uL 4.2-5.4 [facility] Work Phone: Blood hemoglobin measurement (mass/volume)on 07-14-2021 Hemoglobin (Bld) [Mass/Vol] 11.4 g/dL 12.0-15.0 [facility] Work Phone: Blood platelet mean volumeon 07-14-2021 Platelet mean volume (Bld) [Entitic vol] 10.4 fL 6.2-12.0 [facility] Work Phone: Determination of erythrocyte mean corpuscular volume (MCV)on 07-14-2021 MCV (RBC) [Entitic vol] 84.2 fL 81-99 [facility] Work Phone: Erythrocyte sedimentation ra dago 07-14-2021 ESR (Bld) [Velocity] 44 mm/h 0-[facility] Work Phone: Hematocrit Auto (Bld) [Volum e fraction]on 07-14-2021 Hematocrit (Bld) [Volume fraction] 35.2 % 37-47 [facility] Work Phone: Laboratory - Chemistry and C hemistry - challengeon 07-14-2021 CK [Catalytic activity/Vol] 29 U/L 26-192 [facility] Work Phone: CO2 [Moles/Vol] 28.0 mmol/L 21.0-32.0 [facility] Work Phone: Urea nitrogen/Creatinine [Mass ratio] 18.2 mg/mg 10-20 [facility] Work Phone: Laboratory - Hematology and Cell countson 07-14-2021 Erythrocyte distribution width (RBC) [Entitic vol] 45.5 fL 35.1-43.9 [facility] Work Phone: Erythrocyte distribution width (RBC) [Ratio] 15.0 % 11.6-14.6 [facility] Work Phone: MCH (RBC) [Entitic mass] 27.3 pg 27.0-32.0 [facility] Work Phone: MCHC Auto (RBC) [Mass/Vol]on 07-14-2021 MCHC (RBC) [Mass/Vol] 32.4 g/dL 32-36 [facility] Work Phone: No Panel Informationon 07-14 Estimated GFR (MDRD) Amer 41 mL/min >60 [facility] Work Phone: Comment on above: GFR Calc Estimated GFR (MDRD) Non-Af Amer 34 mL/min >60 [facility] Work Phone: Comment on above: Non- GFR Calc 27.3 pg 27.0-32.0 [facility] Work Phone: 15.0 % 11.6-14.6 [facility] Work Phone: 45.5 fl 35.1-43.9 [facility] Work Phone: 34 mL/min >60 [facility] Work Phone: 41 mL/min >60 [facility] Work Phone: 18.2 RATIO 10-20 [facility] Work Phone: 29 U/L 26-192 [facility] Work Phone: 28.0 mmol/L 21.0-32.0 [facility] Work Phone: Platelets bldon 07-14-2021 Platelets (Bld) [#/Vol] 284 10*3/uL 150-450 [facility] Work Phone: Serum or plasma C reactive p rotein measurement (mass/volume)on 07-14-2021 CRP [Mass/Vol] 5.75 mg/L 0.0-3.0 [facility] Work Phone: Comment on above: C-Reactive Protein ( CRP) provides useful information for thediagnosis, therapy and monitoring of inflammatory processesand associated diseases. For the evaluation of Relative Riskfor Cardiovascular Disease, a High Sensitivity CRP (HSCRP)should be ordered. Serum or plasma calcium keyona urement (mass/volume)on 07-14-2021 Calcium [Mass/Vol] 10.2 mg/dL 8.5-10.1 [facility] Work Phone: Serum or plasma creatinine m easurement (mass/volume)on 07-14-2021 Creatinine [Mass/Vol] 1.59 mg/dL 0.55-1.02 [facility] Work Phone: Comment on above: The validity of the calculated GFR & GFRAA in patients over 70 years has not been determined. Clinical correlation is essential. Serum or plasma urea nitroge n measurement (mass/volume)on 07-14-2021 Urea nitrogen [Mass/Vol] 29 mg/dL 7-18 [facility] Work Phone: Thin prep Papanicolaou smear with manual screeningon 07-14-2021 Thin prep Papanicolaou smear with manual screening 4 5-15 [facility] Work Phone: Basophil percentageon 2021 Basophil percentage 77 mg/dL 74-106 [facility] Work Phone: Basophil percentage 141 mmol/L 136-145 [facility] Work Phone: Basophil percentage 4.0 mmol/L 3.5-5.1 [facility] Work Phone: Basophil percentage 106 mmol/L 98-107 [facility] Work Phone: Basophils (Bld) [#/Vol] 6.9 10*3/uL 4.4-11.0 [facility] Work Phone: Chloride [Moles/Vol] 106 mmol/L 98-107 [facility] Work Phone: Glucose [Mass/Vol] 77 mg/dL 74-106 [facility] Work Phone: Potassium [Moles/Vol] 4.0 mmol/L 3.5-5.1 [facility] Work Phone: Sodium [Moles/Vol] 141 mmol/L 136-145 [facility] Work Phone: WBC (Bld) [#/Vol] 6.9 10*3/uL 4.4-11.0 [facility] Work Phone: Blood erythrocytes count (nu mber/volume)on 07-07-2021 RBC (Bld) [#/Vol] 3.57 10*6/uL 4.2-5.4 [facility] Work Phone: Blood hemoglobin measurement (mass/volume)on 07-07-2021 Hemoglobin (Bld) [Mass/Vol] 9.7 g/dL 12.0-15.0 [facility] Work Phone: Blood platelet mean volumeon 07-07-2021 Platelet mean volume (Bld) [Entitic vol] 10.6 fL 6.2-12.0 [facility] Work Phone: Determination of erythrocyte mean corpuscular volume (MCV)on 07-07-2021 MCV (RBC) [Entitic vol] 84.3 fL 81-99 [facility] Work Phone: Erythrocyte sedimentation ra dago 07-07-2021 ESR (Bld) [Velocity] 33 mm/h 0-30 [facility] Work Phone: Hematocrit Auto (Bld) [Volum e fraction]on 07-07-2021 Hematocrit (Bld) [Volume fraction] 30.1 % 37-47 [facility] Work Phone: Laboratory - Chemistry and C hemistry - challengeon 07-07-2021 CK [Catalytic activity/Vol] 26 U/L 26-192 [facility] Work Phone: CO2 [Moles/Vol] 27.0 mmol/L 21.0-32.0 [facility] Work Phone: Urea nitrogen/Creatinine [Mass ratio] 21.8 mg/mg 10-20 [facility] Work Phone: Laboratory - Hematology and Cell countson 07-07-2021 Erythrocyte distribution width (RBC) [Entitic vol] 46.5 fL 35.1-43.9 [facility] Work Phone: Erythrocyte distribution width (RBC) [Ratio] 15.3 % 11.6-14.6 [facility] Work Phone: MCH (RBC) [Entitic mass] 27.2 pg 27.0-32.0 [facility] Work Phone: MCHC Auto (RBC) [Mass/Vol]on 07-07-2021 MCHC (RBC) [Mass/Vol] 32.2 g/dL 32-36 [facility] Work Phone: No Panel Informationon 07-07 Estimated GFR (MDRD) Amer 47 mL/min >60 [facility] Work Phone: Comment on above: GFR Calc Estimated GFR (MDRD) Non-Af Amer 39 mL/min >60 [facility] Work Phone: Comment on above: Non- GFR Calc 27.2 pg 27.0-32.0 [facility] Work Phone: [phone] 15.3 % 11.6-14.6 [facility] Work Phone: [phone] 46.5 fl 35.1-43.9 [facility] Work Phone: 39 mL/min >60 [facility] Work Phone: 47 mL/min >60 [facility] Work Phone: 21.8 RATIO 10-20 [facility] Work Phone: 26 U/L 26-192 [facility] Work Phone: 27.0 mmol/L 21.0-32.0 [facility] Work Phone: Platelets bldon 07-07-2021 Platelets (Bld) [#/Vol] 215 10*3/uL 150-450 [facility] Work Phone: Serum or plasma C reactive p rotein measurement (mass/volume)on 07-07-2021 CRP [Mass/Vol] 6.35 mg/L 0.0-3.0 [facility] Work Phone: Comment on above: C-Reactive Protein ( CRP) provides useful information for thediagnosis, therapy and monitoring of inflammatory processesand associated diseases. For the evaluation of Relative Riskfor Cardiovascular Disease, a High Sensitivity CRP (HSCRP)should be ordered. Serum or plasma calcium keyona urement (mass/volume)on 07-07-2021 Calcium [Mass/Vol] 9.3 mg/dL 8.5-10.1 [facility] Work Phone: Serum or plasma creatinine m easurement (mass/volume)on 07-07-2021 Creatinine [Mass/Vol] 1.42 mg/dL 0.55-1.02 [facility] Work Phone: Comment on above: The validity of the calculated GFR & GFRAA in patients over 70 years has not been determined. Clinical correlation is essential. Serum or plasma urea nitroge n measurement (mass/volume)on 07-07-2021 Urea nitrogen [Mass/Vol] 31 mg/dL 7-18 [facility] Work Phone: Thin prep Papanicolaou smear with manual screeningon 07-07-2021 Thin prep Papanicolaou smear with manual screening 8 5-15 [facility] Work Phone: Basophil percentageon 2021 Basophil percentage 25-50 SEEN /hpf [facility] Work Phone: Bilirubin Test strip Ql (U)o n 07-01-2021 Bilirubin Ql (U) Negative Negative [facility] Work Phone: Ketones Test strip Ql (U)on 07-01-2021 Ketones Ql (U) Negative Negative [facility] Work Phone: Magnesium ammonium phosphate crystal detectionon 07-01-2021 Triple phosphate crystals LM Ql (Urine sed) 1+ /hpf [facility] Work Phone: Mucus LM Ql (Urine sed)on Mucus Ql (Urine sed) 0 SEEN /hpf [facility] Work Phone: Nitrite Test strip Ql (U)on 07-01-2021 Nitrite Ql (U) Positive Negative [facility] Work Phone: Protein Test strip Ql (U)on 07-01-2021 Protein Ql (U) 15 mg/dl Negative [facility] Work Phone: Squamous epithelial cells de tection in urine sediment by light microscopyon 07-01-2021 Epithelial cells.squamous LM Ql (Urine sed) 0-5 SEEN /hpf [facility] Work Phone: Urine blood detectionon 06-16 RBC Ql (U) Negative Negative [facility] Work Phone: RBC Ql (U) 0 SEEN /hpf [facility] Work Phone: Urine clarityon 07-01-2021 Clarity (U) Sl. Cloudy Clear [facility] Work Phone: Urine color determinationon 07-01-2021 Color (U) Yellow Yellow [facility] Work Phone: Urine glucose detectionon Glucose Ql (U) Normal mg/dl Normal [facility] Work Phone: Urine leukocyte esterase det ection by dipstickon 07-01-2021 Leukocyte esterase Test strip Ql (U) 500 /ul Negative [facility] Work Phone: Urine pHon 07-01-2021 pH (U) 9.0 [pH] [facility] Work Phone: Urine sediment bacteria coun t by microscopy (number/high power field)on 07-01-2021 Bacteria LM.HPF (Urine sed) [#/Area] 2 /[HPF] None Seen [facility] Work Phone: Urine specific gravity measu rementon 07-01-2021 Specific gravity (U) [Rel density] 1.015 [facility] Work Phone: Urobilinogen Auto test strip Ql (U)on 07-01-2021 Urobilinogen Ql (U) Normal mg/dl Normal [facility] Work Phone: Bacteria identified Cx Nom ( U)on 06-30-2021 Culture, urine Proteus mirabilis [facility] Work Phone: Basophil percentageon 2021 Basophil percentage 102 mg/dL 74-106 [facility] Work Phone: Basophil percentage 140 mmol/L 136-145 [facility] Work [facility]: Basophil percentage 4.1 mmol/L 3.5-5.1 [facility] Work Phone: Basophil percentage 107 mmol/L 98-107 [facility] Work Phone: Basophils (Bld) [#/Vol] 6.3 10*3/uL 4.4-11.0 [facility] Work Phone: Chloride [Moles/Vol] 107 mmol/L 98-107 [facility] Work Phone: Glucose [Mass/Vol] 102 mg/dL 74-106 [facility] Work Phone: Comment on above: Fasting Glucose resu lt from 100 to 125 mg/dL suggests IMPAIRED HOMEOSTASIS per A.D.A. criteria. Potassium [Moles/Vol] 4.1 mmol/L 3.5-5.1 [facility]: Sodium [Moles/Vol] 140 mmol/L 136-145 [facility] Work Phone: WBC (Bld) [#/Vol] 6.3 10*3/uL 4.4-11.0 [facility] Work Phone: Blood erythrocytes count (nu mber/volume)on 06-30-2021 RBC (Bld) [#/Vol] 3.70 10*6/uL 4.2-5.4 [facility] Work Phone: Blood hemoglobin measurement (mass/volume)on 06-30-2021 Hemoglobin (Bld) [Mass/Vol] 10.1 g/dL 12.0-15.0 [facility] Work Phone: Blood platelet mean volumeon 06-30-2021 Platelet mean volume (Bld) [Entitic vol] 10.8 fL 6.2-12.0 [facility] Work Phone: Culture, urineon 02-15-2022 Bacteria identified Cx Nom (U) Proteus mirabilis [facility] Work Phone: Determination of erythrocyte mean corpuscular volume (MCV)on 06-30-2021 MCV (RBC) [Entitic vol] 85.7 fL 81-99 [facility] Work Phone: Erythrocyte sedimentation ra dago 06-30-2021 ESR (Bld) [Velocity] 31 mm/h 0-30 [facility] Work Phone: Hematocrit Auto (Bld) [Volum e fraction]on 06-30-2021 Hematocrit (Bld) [Volume fraction] 31.7 % 37-47 [facility] Work Phone: Laboratory - Chemistry and C hemistry - challengeon 06-30-2021 CK [Catalytic activity/Vol] 27 U/L 26-192 [facility] Work Phone: CO2 [Moles/Vol] 29.0 mmol/L 21.0-32.0 [facility] Work Phone: Urea nitrogen/Creatinine [Mass ratio] 27.6 mg/mg 10-20 [facility] Work Phone: Laboratory - Hematology and Cell countson 06-30-2021 Erythrocyte distribution width (RBC) [Entitic vol] 48.1 fL 35.1-43.9 [facility] Work Phone: Erythrocyte distribution width (RBC) [Ratio] 15.3 % 11.6-14.6 [facility] Work Phone: MCH (RBC) [Entitic mass] 27.3 pg 27.0-32.0 [facility] Work Phone: MCHC Auto (RBC) [Mass/Vol]on 06-30-2021 MCHC (RBC) [Mass/Vol] 31.9 g/dL 32-36 [facility] Work Phone: No Panel Informationon 06-30 Estimated GFR (MDRD) Amer 50 mL/min >60 [facility] Work Phone: Comment on above: GFR Calc Estimated GFR (MDRD) Non-Af Amer 42 mL/min >60 [facility] Work Phone: Comment on above: Non- GFR Calc 27.3 pg 27.0-32.0 [facility] Work Phone: 15.3 % 11.6-14.6 [facility] Work Phone: 48.1 fl 35.1-43.9 [facility] Work Phone: 42 mL/min >60 [facility] Work Phone: 50 mL/min >60 [facility] Work Phone: 27.6 RATIO 10-20 [facility] Work Phone: 27 U/L 26-192 [facility] Work Phone: 29.0 mmol/L 21.0-32.0 [facility] Work Phone: Platelets bldon 06-30-2021 Platelets (Bld) [#/Vol] 224 10*3/uL 150-450 [facility] Work Phone: Serum or plasma C reactive p rotein measurement (mass/volume)on 06-30-2021 CRP [Mass/Vol] 7.01 mg/L 0.0-3.0 [facility] Work Phone: Comment on above: C-Reactive Protein ( CRP) provides useful information for thediagnosis, therapy and monitoring of inflammatory processesand associated diseases. For the evaluation of Relative Riskfor Cardiovascular Disease, a High Sensitivity CRP (HSCRP)should be ordered. Serum or plasma calcium keyona urement (mass/volume)on 06-30-2021 Calcium [Mass/Vol] 9.2 mg/dL 8.5-10.1 [facility] Work Phone: Serum or plasma creatinine m easurement (mass/volume)on 06-30-2021 Creatinine [Mass/Vol] 1.34 mg/dL 0.55-1.02 [facility] Work Phone: Comment on above: The validity of the calculated GFR & GFRAA in patients over 70 years has not been determined. Clinical correlation is essential. Serum or plasma urea nitroge n measurement (mass/volume)on 06-30-2021 Urea nitrogen [Mass/Vol] 37 mg/dL 7-18 [facility] Work Phone: Thin prep Papanicolaou smear with manual screeningon 06-30-2021 Thin prep Papanicolaou smear with manual screening 4 5-15 [facility] Work Phone: Basophil percentageon 2021 Basophil percentage 112 mg/dL 74-106 [facility] Work Phone: [phone] Basophil percentage 140 mmol/L 136-145 [facility] Work Phone: Basophil percentage 3.7 mmol/L 3.5-5.1 [facility] Work Phone: [phone] Basophil percentage 104 mmol/L 98-107 [facility] Work Phone: [phone] Basophils (Bld) [#/Vol] 8.1 10*3/uL 4.4-11.0 [facility] Work Phone: Chloride [Moles/Vol] 104 mmol/L 98-107 [facility] Work Phone: [phone] Glucose [Mass/Vol] 112 mg/dL 74-106 [facility] Work Phone: Comment on above: Fasting Glucose resu lt from 100 to 125 mg/dL suggests IMPAIRED HOMEOSTASIS per A.D.A. criteria. Potassium [Moles/Vol] 3.7 mmol/L 3.5-5.1 [facility] Work Phone: Sodium [Moles/Vol] 140 mmol/L 136-145 [facility] Work Phone: [phone] WBC (Bld) [#/Vol] 8.1 10*3/uL 4.4-11.0 [facility] Work Phone: [phone] Blood erythrocytes count (nu mber/volume)on 06-23-2021 RBC (Bld) [#/Vol] 3.57 10*6/uL 4.2-5.4 [facility] Work Phone: Blood hemoglobin measurement (mass/volume)on 06-23-2021 Hemoglobin (Bld) [Mass/Vol] 9.8 g/dL 12.0-15.0 [facility] Work Phone: Blood platelet mean volumeon 06-23-2021 Platelet mean volume (Bld) [Entitic vol] 10.9 fL 6.2-12.0 [facility] Work Phone: Determination of erythrocyte mean corpuscular volume (MCV)on 06-23-2021 MCV (RBC) [Entitic vol] 86.0 fL 81-99 [facility] Work Phone: Erythrocyte sedimentation ra dago 06-23-2021 ESR (Bld) [Velocity] 30 mm/h 0-30 [facility] Work Phone: Hematocrit Auto (Bld) [Volum e fraction]on 06-23-2021 Hematocrit (Bld) [Volume fraction] 30.7 % 37-47 [facility] Work Phone: Laboratory - Chemistry and C hemistry - challengeon 06-23-2021 CK [Catalytic activity/Vol] 27 U/L 26-192 [facility] Work Phone: CO2 [Moles/Vol] 29.0 mmol/L 21.0-32.0 [facility] Work Phone: Urea nitrogen/Creatinine [Mass ratio] 29.8 mg/mg 10-20 [facility] Work Phone: Laboratory - Hematology and Cell countson 06-23-2021 Erythrocyte distribution width (RBC) [Entitic vol] 48.5 fL 35.1-43.9 [facility] Work Phone: Erythrocyte distribution width (RBC) [Ratio] 15.4 % 11.6-14.6 [facility] Work Phone: MCH (RBC) [Entitic mass] 27.5 pg 27.0-32.0 [facility] Work Phone: MCHC Auto (RBC) [Mass/Vol]on 06-23-2021 MCHC (RBC) [Mass/Vol] 31.9 g/dL 32-36 [facility] Work Phone: No Panel Informationon 06-23 Estimated GFR (MDRD) Amer 55 mL/min >60 [facility] Work Phone: Comment on above: GFR Calc Estimated GFR (MDRD) Non-Af Amer 46 mL/min >60 [facility] Work Phone: Comment on above: Non- GFR Calc 27.5 pg 27.0-32.0 [facility] Work Phone: 15.4 % 11.6-14.6 [facility] Work Phone: 48.5 fl 35.1-43.9 [facility] Work Phone: 46 mL/min >60 [facility] Work Phone: 55 mL/min >60 [facility] Work Phone: 29.8 RATIO 10-20 [facility] Work Phone: 27 U/L 26-192 [facility] Work Phone: 29.0 mmol/L 21.0-32.0 [facility] Work Phone: Platelets bldon 06-23-2021 Platelets (Bld) [#/Vol] 230 10*3/uL 150-450 [facility] Work Phone: Serum or plasma C reactive p rotein measurement (mass/volume)on 06-23-2021 CRP [Mass/Vol] 6.62 mg/L 0.0-3.0 [facility] Work Phone: Comment on above: C-Reactive Protein ( CRP) provides useful information for thediagnosis, therapy and monitoring of inflammatory processesand associated diseases. For the evaluation of Relative Riskfor Cardiovascular Disease, a High Sensitivity CRP (HSCRP)should be ordered. Serum or plasma calcium keyona urement (mass/volume)on 06-23-2021 Calcium [Mass/Vol] 9.3 mg/dL 8.5-10.1 [facility] Work Phone: Serum or plasma creatinine m easurement (mass/volume)on 06-23-2021 Creatinine [Mass/Vol] 1.24 mg/dL 0.55-1.02 [facility] Work Phone: Comment on above: The validity of the calculated GFR & GFRAA in patients over 70 years has not been determined. Clinical correlation is essential. Serum or plasma urea nitroge n measurement (mass/volume)on 06-23-2021 Urea nitrogen [Mass/Vol] 37 mg/dL 7-18 [facility] Work Phone: Thin prep Papanicolaou smear with manual screeningon 06-23-2021 Thin prep Papanicolaou smear with manual screening 7 5-15 [facility] Work Phone: Bacteria identified Cx Nom ( U)on 06-19-2021 Culture, urine Proteus mirabilis [facility] Work Phone: Bilirubin Test strip Ql (U)o n 06-19-2021 Bilirubin Ql (U) Negative Negative [facility] Work Phone: Culture, urineon 06-19-2021 Bacteria identified Cx Nom (U) Proteus mirabilis [facility] Work Phone: Ketones Test strip Ql (U)on 06-19-2021 Ketones Ql (U) Negative Negative [facility] Work Phone: Nitrite Test strip Ql (U)on 06-19-2021 Nitrite Ql (U) Positive Negative [facility] Work Phone: Protein Test strip Ql (U)on 06-19-2021 Protein Ql (U) Negative Negative [facility] Work Phone: Urine blood detectionon -0 RBC Ql (U) Negative Negative [facility] Work Phone: Urine clarityon 06-19-2021 Clarity (U) Sl. Cloudy Clear [facility] Work Phone: Urine color determinationon 06-19-2021 Color (U) Yellow Yellow [facility] Work Phone: Urine glucose detectionon Glucose Ql (U) Normal mg/dl Normal [facility] Work Phone: Urine leukocyte esterase det ection by dipstickon 06-19-2021 Leukocyte esterase Test strip Ql (U) 500 /ul Negative [facility] Work Phone: Urine pHon 06-19-2021 pH (U) 9.0 [pH] [facility] Work Phone: Urine specific gravity measu rementon 06-19-2021 Specific gravity (U) [Rel density] 1.015 [facility] Work Phone: Urobilinogen Auto test strip Ql (U)on 06-19-2021 Urobilinogen Ql (U) Normal mg/dl Normal [facility] Work Phone: Basophil percentageon 2021 Basophil percentage 129 mg/dL 74-106 [facility] Work Phone: Basophil percentage 138 mmol/L 136-145 [facility] Work Phone: Basophil percentage 4.1 mmol/L 3.5-5.1 [facility] Work Phone: Basophil percentage 104 mmol/L 98-107 [facility] Work Phone: Basophils (Bld) [#/Vol] 8.5 10*3/uL 4.4-11.0 [facility] Work Phone: Chloride [Moles/Vol] 104 mmol/L 98-107 [facility] Work Phone: Glucose [Mass/Vol] 129 mg/dL 74-106 [facility] Work Phone: Comment on above: Fasting Glucose resu lt greater than or equal to 126 mg/dL suggests DIABETES MELLITUS per A.D.A. criteria. Potassium [Moles/Vol] 4.1 mmol/L 3.5-5.1 [facility] Phone: Sodium [Moles/Vol] 138 mmol/L 136-145 [facility] Work Phone: WBC (Bld) [#/Vol] 8.5 10*3/uL 4.4-11.0 [facility] Work Phone: Blood erythrocytes count (nu mber/volume)on 06-16-2021 RBC (Bld) [#/Vol] 4.01 10*6/uL 4.2-5.4 [facility] Work Phone: Blood hemoglobin measurement (mass/volume)on 06-16-2021 Hemoglobin (Bld) [Mass/Vol] 10.7 g/dL 12.0-15.0 [facility] Work Phone: Blood platelet mean volumeon 06-16-2021 Platelet mean volume (Bld) [Entitic vol] 10.7 fL 6.2-12.0 [facility] Work Phone: Determination of erythrocyte mean corpuscular volume (MCV)on 06-16-2021 MCV (RBC) [Entitic vol] 85.0 fL 81-99 [facility] Work Phone: Erythrocyte sedimentation ra dago 06-16-2021 ESR (Bld) [Velocity] 47 mm/h 0-30 [facility] Work Phone: Hematocrit Auto (Bld) [Volum e fraction]on 06-16-2021 Hematocrit (Bld) [Volume fraction] 34.1 % 37-47 [facility] Work Phone: Laboratory - Chemistry and C hemistry - challengeon 06-16-2021 CK [Catalytic activity/Vol] 28 U/L 26-192 [facility] Work Phone: CO2 [Moles/Vol] 28.0 mmol/L 21.0-32.0 [facility] Work Phone: Urea nitrogen/Creatinine [Mass ratio] 24.8 mg/mg 10- [facility] Work Phone: Laboratory - Hematology and Cell countson 06-16-2021 Erythrocyte distribution width (RBC) [Entitic vol] 47.7 fL 35.1-43.9 [facility] Work Phone: Erythrocyte distribution width (RBC) [Ratio] 15.2 % 11.6-14.6 [facility] Work Phone: MCH (RBC) [Entitic mass] 26.7 pg 27.0-32.0 [facility] Work Phone: MCHC Auto (RBC) [Mass/Vol]on 06-16-2021 MCHC (RBC) [Mass/Vol] 31.4 g/dL 32-36 [facility] Work Phone: No Panel Informationon 06-16 Estimated GFR (MDRD) Amer 46 mL/min >60 [facility] Work Phone: Comment on above: GFR Calc Estimated GFR (MDRD) Non-Af Amer 38 mL/min >60 [facility] Work Phone: Comment on above: Non- GFR Calc 26.7 pg 27.0-32.0 [facility] Work Phone: 15.2 % 11.6-14.6 [facility] Work Phone: 47.7 fl 35.1-43.9 [facility] Work Phone: [phone] 38 mL/min >60 [facility] Work Phone: 46 mL/min >60 [facility] Work Phone: 24.8 RATIO 10- [facility] Work Phone: 28 U/L 26-192 [facility] Work Phone: 28.0 mmol/L 21.0-32.0 [facility] Work Phone: Platelets bldon 06-16-2021 Platelets (Bld) [#/Vol] 265 10*3/uL 150-450 [facility] Work Phone: Serum or plasma C reactive p rotein measurement (mass/volume)on 06-16-2021 CRP [Mass/Vol] 6.37 mg/L 0.0-3.0 [facility] Work Phone: Comment on above: C-Reactive Protein ( CRP) provides useful information for thediagnosis, therapy and monitoring of inflammatory processesand associated diseases. For the evaluation of Relative Riskfor Cardiovascular Disease, a High Sensitivity CRP (HSCRP)should be ordered. Serum or plasma calcium keyona urement (mass/volume)on 06-16-2021 Calcium [Mass/Vol] 9.5 mg/dL 8.5-10.1 [facility] Work Phone: Serum or plasma creatinine m easurement (mass/volume)on 06-16-2021 Creatinine [Mass/Vol] 1.45 mg/dL 0.55-1.02 [facility] Work Phone: Comment on above: The validity of the calculated GFR & GFRAA in patients over 70 years has not been determined. Clinical correlation is essential. Serum or plasma urea nitroge n measurement (mass/volume)on 06-16-2021 Urea nitrogen [Mass/Vol] 36 mg/dL 7-18 [facility] Work Phone: Thin prep Papanicolaou smear with manual screeningon 06-16-2021 Thin prep Papanicolaou smear with manual screening 6 5-15 [facility] Work Phone: Basophil percentageon 2021 Basophil percentage 92 mg/dL 74-106 [facility] Work Phone: Basophil percentage 139 mmol/L 136-145 [facility] Work Phone: Basophil percentage 4.1 mmol/L 3.5-5.1 [facility] Work Phone: Basophil percentage 105 mmol/L 98-107 [facility] Work Phone: Basophils (Bld) [#/Vol] 7.1 10*3/uL 4.4-11.0 [facility] Work Phone: Chloride [Moles/Vol] 105 mmol/L 98-107 [facility] Work Phone: Glucose [Mass/Vol] 92 mg/dL 74-[facility] Work Phone: Potassium [Moles/Vol] 4.1 mmol/L 3.5-5.1 [place] Work Phone: Sodium [Moles/Vol] 139 mmol/L 136-145 [facility]: WBC (Bld) [#/Vol] 7.1 10*3/uL 4.4-11.0 [facility] Phone: Blood erythrocytes count (nu mber/volume)on 06-09-2021 RBC (Bld) [#/Vol] 3.65 10*6/uL 4.2-5.4 [facility] Work Phone: Blood hemoglobin measurement (mass/volume)on 06-09-2021 Hemoglobin (Bld) [Mass/Vol] 9.6 g/dL 12.0-15.0 [facility] Work Phone: Blood platelet mean volumeon 06-09-2021 Platelet mean volume (Bld) [Entitic vol] 10.3 fL 6.2-12.0 [facility] Work Phone: Determination of erythrocyte mean corpuscular volume (MCV)on 06-09-2021 MCV (RBC) [Entitic vol] 85.2 fL 81-99 [facility] Work Phone: Erythrocyte sedimentation ra dago 06-09-2021 ESR (Bld) [Velocity] 28 mm/h 0-30 [facility] Work Phone: Hematocrit Auto (Bld) [Volum e fraction]on 06-09-2021 Hematocrit (Bld) [Volume fraction] 31.1 % 37-47 [facility] Work Phone: Laboratory - Chemistry and C hemistry - challengeon 06-09-2021 CK [Catalytic activity/Vol] 34 U/L 26-192 [facility] Work Phone: CO2 [Moles/Vol] 30.0 mmol/L 21.0-32.0 [facility] Work Phone: Urea nitrogen/Creatinine [Mass ratio] 21.9 mg/mg 10-20 [facility] Work Phone: Laboratory - Hematology and Cell countson 06-09-2021 Erythrocyte distribution width (RBC) [Entitic vol] 48.1 fL 35.1-43.9 [facility] Work Phone: Erythrocyte distribution width (RBC) [Ratio] 15.3 % 11.6-14.6 [facility] Work Phone: MCH (RBC) [Entitic mass] 26.3 pg 27.0-32.0 [facility] Work Phone: MCHC Auto (RBC) [Mass/Vol]on 06-09-2021 MCHC (RBC) [Mass/Vol] 30.9 g/dL 32-36 [facility] Work Phone: No Panel Informationon 06-09 Estimated GFR (MDRD) Amer 44 mL/min >60 [facility] Work Phone: Comment on above: GFR Calc Estimated GFR (MDRD) Non-Af Amer 36 mL/min >60 [facility] Work Phone: Comment on above: Non- GFR Calc 26.3 pg 27.0-32.0 [facility] Work Phone: 15.3 % 11.6-14.6 [facility] Work Phone: 48.1 fl 35.1-43.9 [facility] Work Phone: 36 mL/min >60 [facility] Work Phone: 44 mL/min >60 [facility] Work Phone: 21.9 RATIO 10-20 [facility] Work Phone: 34 U/L 26-192 [facility] Work Phone: 30.0 mmol/L 21.0-32.0 [facility] Work Phone: Platelets bldon 06-09-2021 Platelets (Bld) [#/Vol] 230 10*3/uL 150-450 [facility] Work Phone: Serum or plasma C reactive p rotein measurement (mass/volume)on 06-09-2021 CRP [Mass/Vol] 5.91 mg/L 0.0-3.0 [facility] Work Phone: Comment on above: C-Reactive Protein ( CRP) provides useful information for thediagnosis, therapy and monitoring of inflammatory processesand associated diseases. For the evaluation of Relative Riskfor Cardiovascular Disease, a High Sensitivity CRP (HSCRP)should be ordered. Serum or plasma calcium keyona urement (mass/volume)on 06-09-2021 Calcium [Mass/Vol] 9.2 mg/dL 8.5-10.1 [facility] Work Phone: Serum or plasma creatinine m easurement (mass/volume)on 06-09-2021 Creatinine [Mass/Vol] 1.51 mg/dL 0.55-1.02 [facility] Work Phone: Comment on above: The validity of the calculated GFR & GFRAA in patients over 70 years has not been determined. Clinical correlation is essential. Serum or plasma urea nitroge n measurement (mass/volume)on 06-09-2021 Urea nitrogen [Mass/Vol] 33 mg/dL 7-18 [facility] Work Phone: Thin prep Papanicolaou smear with manual screeningon 06-09-2021 Thin prep Papanicolaou smear with manual screening 4 5-15 [facility] Work Phone: [phone] Absolute lymphocyte counton 06-02-2021 Lymphocytes Auto (Unsp spec) [#/Vol] 1.86 10*3/uL 0.83-4.51 [facility] Work Phone: [phone] Basophil percentageon 2021 Basophil percentage 88 mg/dL 74-106 [facility] Work Phone: Basophil percentage 140 mmol/L 136-145 [facility] Work Phone: Basophil percentage 3.8 mmol/L 3.5-5.1 [facility] Work Phone: Basophil percentage 103 mmol/L 98-107 [facility] Work Phone: Basophils (Bld) [#/Vol] 7.4 10*3/uL 4.4-11.0 [facility] Work Phone: Basophils (Bld) [#/Vol] 4.6 10*3/uL 2.0-7.7 [facility] Work Phone: Basophils/100 WBC (Bld) 0.4 % 0-1 [facility] Work Phone: Basophils/100 WBC (Bld) 62.3 % 47-70 [facility] Work Phone: Basophils/100 WBC (Bld) 5.3 % 0-5 [facility] Work Phone: Chloride [Moles/Vol] 103 mmol/L 98-107 [facility] Work Phone: Eosinophils/100 WBC (Bld) 5.3 % 0-5 [facility] Work Phone: Glucose [Mass/Vol] 88 mg/dL 74-106 [facility] Work Phone: Neutrophils (Bld) [#/Vol] 4.6 10*3/uL 2.0-7.7 [facility] Work Phone: Neutrophils/100 WBC (Bld) 62.3 % 47-70 [facility] Work Phone: Potassium [Moles/Vol] 3.8 mmol/L 3.5-5.1 [facility]: Sodium [Moles/Vol] 140 mmol/L 136-145 [facility] Work Phone: WBC (Bld) [#/Vol] 7.4 10*3/uL 4.4-11.0 [facility] Work Phone: Blood erythrocytes count (nu mber/volume)on 06-02-2021 RBC (Bld) [#/Vol] 3.66 10*6/uL 4.2-5.4 [facility] Work Phone: Blood hemoglobin measurement (mass/volume)on 06-02-2021 Hemoglobin (Bld) [Mass/Vol] 9.8 g/dL 12.0-15.0 [facility] Work Phone: Blood lymphocytes/100 leukoc yteson 06-02-2021 Lymphocytes/100 WBC (Bld) 25.2 % 19-41 [facility] Work Phone: Blood monocytes/100 leukocyt eson 06-02-2021 Monocytes/100 WBC (Bld) 6.4 % 0-10 [facility] Work Phone: [phone] Blood platelet mean volumeon 06-02-2021 Platelet mean volume (Bld) [Entitic vol] 10.8 fL 6.2-12.0 [facility] Work Phone: Determination of erythrocyte mean corpuscular volume (MCV)on 06-02-2021 MCV (RBC) [Entitic vol] 84.7 fL 81-99 [facility] Work Phone: Erythrocyte sedimentation ra dago 06-02-2021 ESR (Bld) [Velocity] 57 mm/h 0-30 [facility] Work Phone: Hematocrit Auto (Bld) [Volum e fraction]on 06-02-2021 Hematocrit (Bld) [Volume fraction] 31.0 % 37-47 [facility] Work Phone: Laboratory - Chemistry and C hemistry - challengeon 06-02-2021 CO2 [Moles/Vol] 29.0 mmol/L 21.0-32.0 [facility] Work Phone: Urea nitrogen/Creatinine [Mass ratio] 25.0 mg/mg 10-20 [facility] Work Phone: Laboratory - Hematology and Cell countson 06-02-2021 Erythrocyte distribution width (RBC) [Entitic vol] 47.8 fL 35.1-43.9 [facility] Work Phone: Erythrocyte distribution width (RBC) [Ratio] 15.4 % 11.6-14.6 [facility] Work Phone: Immature granulocytes/100 WBC (Bld) 0.400 % 0.0-0.9 [facility] Work Phone: Comment on above: IG% - Immature Granu locytes (promyelocytes, myelocytes and metamyelocytes) > 1% indicates that a LEFT SHIFT is Present. MCH (RBC) [Entitic mass] 26.8 pg 27.0-32.0 [facility] Work Phone: Nucleated RBC/100 WBC (Bld) [Ratio] 0 % 0-5 [facility] Work Phone: MCHC Auto (RBC) [Mass/Vol]on 06-02-2021 MCHC (RBC) [Mass/Vol] 31.6 g/dL 32-36 [facility] Work Phone: No Panel Informationon 06-02 Estimated GFR (MDRD) Amer 55 mL/min >60 [facility] Work Phone: Comment on above: GFR Calc Estimated GFR (MDRD) Non-Af Amer 46 mL/min >60 [facility] Work Phone: Comment on above: Non- GFR Calc 26.8 pg 27.0-32.0 [facility] Work Phone: 15.4 % 11.6-14.6 [facility] Work Phone: 47.8 fl 35.1-43.9 [facility] Work Phone: 0.400 % 0.0-0.9 [facility] Work Phone: 0 % 0-5 [facility] Work Phone: 46 mL/min >60 [facility] Work Phone: 55 mL/min >60 [facility] Work Phone: 25.0 RATIO 10-20 [facility] Work Phone: 29.0 mmol/L 21.0-32.0 [facility] Work Phone: Platelets bldon 06-02-2021 Platelets (Bld) [#/Vol] 246 10*3/uL 150-450 [facility] Work Phone: Serum or plasma C reactive p rotein measurement (mass/volume)on 06-02-2021 CRP [Mass/Vol] 9.08 mg/L 0.0-3.0 [facility] Work Phone: Comment on above: C-Reactive Protein ( CRP) provides useful information for thediagnosis, therapy and monitoring of inflammatory processesand associated diseases. For the evaluation of Relative Riskfor Cardiovascular Disease, a High Sensitivity CRP (HSCRP)should be ordered. Serum or plasma calcium keyona urement (mass/volume)on 06-02-2021 Calcium [Mass/Vol] 9.2 mg/dL 8.5-10.1 [facility] Work Phone: Serum or plasma creatinine m easurement (mass/volume)on 06-02-2021 Creatinine [Mass/Vol] 1.24 mg/dL 0.55-1.02 [facility] Work Phone: Comment on above: The validity of the calculated GFR & GFRAA in patients over 70 years has not been determined. Clinical correlation is essential. Serum or plasma urea nitroge n measurement (mass/volume)on 06-02-2021 Urea nitrogen [Mass/Vol] 31 mg/dL 7-18 [facility] Work Phone: Thin prep Papanicolaou smear with manual screeningon 06-02-2021 Thin prep Papanicolaou smear with manual screening 8 5-15 [facility] Work Phone: Basophil percentageon 2021 Basophil percentage 95 mg/dL 74-106 [facility] Work Phone: Basophil percentage 141 mmol/L 136-145 [facility] Work Phone: Basophil percentage 4.0 mmol/L 3.5-5.1 [facility] Work Phone: Basophil percentage 102 mmol/L 98-107 [facility] Work Phone: Basophils (Bld) [#/Vol] 9.1 10*3/uL 4.4-11.0 [facility] Work Phone: Chloride [Moles/Vol] 102 mmol/L 98-107 [facility] Work Phone: Glucose [Mass/Vol] 95 mg/dL 74-106 [facility] Work Phone: Comment on above: Please note revised GLUCOSE reference range effective 2017. Potassium [Moles/Vol] 4.0 mmol/L 3.5-5.1 [facility] Work Phone: Sodium [Moles/Vol] 141 mmol/L 136-145 [facility] Work Phone: WBC (Bld) [#/Vol] 9.1 10*3/uL 4.4-11.0 [facility] Work Phone: Blood erythrocytes count (nu mber/volume)on 05-26-2021 RBC (Bld) [#/Vol] 3.91 10*6/uL 4.2-5.4 [facility] Work Phone: Blood hemoglobin measurement (mass/volume)on 05-26-2021 Hemoglobin (Bld) [Mass/Vol] 10.3 g/dL 12.0-15.0 [facility] Work Phone: Blood platelet mean volumeon 05-26-2021 Platelet mean volume (Bld) [Entitic vol] 10.8 fL 6.2-12.0 [facility] Work Phone: Determination of erythrocyte mean corpuscular volume (MCV)on 05-26-2021 MCV (RBC) [Entitic vol] 84.4 fL 81-99 [facility] Work Phone: Erythrocyte sedimentation ra dago 05-26-2021 ESR (Bld) [Velocity] 55 mm/h 0-30 [facility] Work Phone: Hematocrit Auto (Bld) [Volum e fraction]on 05-26-2021 Hematocrit (Bld) [Volume fraction] 33.0 % 37-47 [facility] Work Phone: Laboratory - Chemistry and C hemistry - challengeon 05-26-2021 CK [Catalytic activity/Vol] 41 U/L 26-192 [facility] Work Phone: CO2 [Moles/Vol] 29.0 mmol/L 21.0-32.0 [facility] Work Phone: Urea nitrogen/Creatinine [Mass ratio] 27.0 mg/mg 10-20 [facility] Work Phone: Laboratory - Hematology and Cell countson 05-26-2021 Erythrocyte distribution width (RBC) [Entitic vol] 47.6 fL 35.1-43.9 [facility] Work Phone: Erythrocyte distribution width (RBC) [Ratio] 15.5 % 11.6-14.6 [facility] Work Phone: MCH (RBC) [Entitic mass] 26.3 pg 27.0-32.0 [facility] Work Phone: MCHC Auto (RBC) [Mass/Vol]on 05-26-2021 MCHC (RBC) [Mass/Vol] 31.2 g/dL 32-36 [facility] Work Phone: No Panel Informationon 05-26 Estimated GFR (MDRD) Amer 54 mL/min >60 [facility] Work Phone: Comment on above: GFR Calc Estimated GFR (MDRD) Non-Af Amer 45 mL/min >60 [facility] Work Phone: Comment on above: Non- GFR Calc 26.3 pg 27.0-32.0 [facility] Work Phone: 15.5 % 11.6-14.6 [facility] Work Phone: 47.6 fl 35.1-43.9 [facility] Work Phone: 45 mL/min >60 [facility] Work Phone: 54 mL/min >60 [facility] Work Phone: 27.0 RATIO 10-20 [facility] Work Phone: 41 U/L 26-192 [facility] Work Phone: 29.0 mmol/L 21.0-32.0 [facility] Work Phone: Platelets bldon 05-26-2021 Platelets (Bld) [#/Vol] 302 10*3/uL 150-450 [facility] Work Phone: Serum or plasma C reactive p rotein measurement (mass/volume)on 05-26-2021 CRP [Mass/Vol] 11.40 mg/L 0.0-3.0 [facility] Work Phone: Comment on above: C-Reactive Protein ( CRP) provides useful information for thediagnosis, therapy and monitoring of inflammatory processesand associated diseases. For the evaluation of Relative Riskfor Cardiovascular Disease, a High Sensitivity CRP (HSCRP)should be ordered. Serum or plasma calcium keyona urement (mass/volume)on 05-26-2021 Calcium [Mass/Vol] 9.8 mg/dL 8.5-10.1 [facility] Work Phone: Serum or plasma creatinine m easurement (mass/volume)on 05-26-2021 Creatinine [Mass/Vol] 1.26 mg/dL 0.55-1.02 [facility] Work Phone: Comment on above: The validity of the calculated GFR & GFRAA in patients over 70 years has not been determined. Clinical correlation is essential. Serum or plasma urea nitroge n measurement (mass/volume)on 05-26-2021 Urea nitrogen [Mass/Vol] 34 mg/dL 7-18 [facility] Work Phone: Thin prep Papanicolaou smear with manual screeningon 05-26-2021 Thin prep Papanicolaou smear with manual screening 10 5-15 [facility] Work Phone: Basophil percentageon 2021 Basophil percentage 98 mg/dL 74-106 [facility] Work Phone: Basophil percentage 142 mmol/L 136-145 [facility] Work Phone: Basophil percentage 4.2 mmol/L 3.5-5.1 [facility] Work Phone: Basophil percentage 104 mmol/L 98-107 [facility] Work Phone: Basophils (Bld) [#/Vol] 7.2 10*3/uL 4.4-11.0 [facility] Work Phone: Chloride [Moles/Vol] 104 mmol/L 98-107 [facility] Work Phone: Glucose [Mass/Vol] 98 mg/dL 74-106 [facility] Work Phone: Comment on above: Please note revised GLUCOSE reference range effective 2017. Potassium [Moles/Vol] 4.2 mmol/L 3.5-5.1 [facility] Work [facility]: Sodium [Moles/Vol] 142 mmol/L 136-145 [facility] Work Phone: WBC (Bld) [#/Vol] 7.2 10*3/uL 4.4-11.0 [facility] Work Phone: Blood erythrocytes count (nu mber/volume)on 05-19-2021 RBC (Bld) [#/Vol] 3.80 10*6/uL 4.2-5.4 [facility] Work Phone: Blood hemoglobin measurement (mass/volume)on 05-19-2021 Hemoglobin (Bld) [Mass/Vol] 10.2 g/dL 12.0-15.0 [facility] Work Phone: Blood platelet mean volumeon 05-19-2021 Platelet mean volume (Bld) [Entitic vol] 10.3 fL 6.2-12.0 [facility] Work Phone: Determination of erythrocyte mean corpuscular volume (MCV)on 05-19-2021 MCV (RBC) [Entitic vol] 85.3 fL 81-99 [facility] Work Phone: Erythrocyte sedimentation ra dago 05-19-2021 ESR (Bld) [Velocity] 52 mm/h 0-30 [facility] Work Phone: Comment on above: Previous reported re sult: 12 mm/hrEdited by: SUKUMAR on 05/19/21:0930 AMENDED REPORT 05/19/21 0930 SED RATE previously reported as: 12 mm/hr Hematocrit Auto (Bld) [Volum e fraction]on 05-19-2021 Hematocrit (Bld) [Volume fraction] 32.4 % 37-47 [facility] Work Phone: Laboratory - Chemistry and C hemistry - challengeon 05-19-2021 CK [Catalytic activity/Vol] 42 U/L 26-192 [facility] Work Phone: [phone] CO2 [Moles/Vol] 31.0 mmol/L 21.0-32.0 [facility] Work Phone: Urea nitrogen/Creatinine [Mass ratio] 20.2 mg/mg 10-20 [facility] Work Phone: [phone] Laboratory - Hematology and Cell countson 05-19-2021 Erythrocyte distribution width (RBC) [Entitic vol] 48.2 fL 35.1-43.9 [facility] Work Phone: [phone] Erythrocyte distribution width (RBC) [Ratio] 15.5 % 11.6-14.6 [facility] Work Phone: [phone] MCH (RBC) [Entitic mass] 26.8 pg 27.0-32.0 [facility] Work Phone: MCHC Auto (RBC) [Mass/Vol]on 05-19-2021 MCHC (RBC) [Mass/Vol] 31.5 g/dL 32-36 [facility] Work Phone: No Panel Informationon 05-19 Estimated GFR (MDRD) Amer 61 mL/min >60 [facility] Work Phone: Comment on above: GFR Calc Estimated GFR (MDRD) Non-Af Amer 50 mL/min >60 [facility] Work Phone: Comment on above: Non- GFR Calc 26.8 pg 27.0-32.0 [facility] Work Phone: [phone] 15.5 % 11.6-14.6 [facility] Work Phone: [phone] 48.2 fl 35.1-43.9 [facility] Work Phone: 50 mL/min >60 [facility] Work Phone: 61 mL/min >60 [facility] Work Phone: 20.2 RATIO 10-20 [facility] Work Phone: 42 U/L 26-192 [facility] Work Phone: 31.0 mmol/L 21.0-32.0 [facility] Work Phone: Platelets bldon 05-19-2021 Platelets (Bld) [#/Vol] 258 10*3/uL 150-450 [facility] Work Phone: Serum or plasma C reactive p rotein measurement (mass/volume)on 05-19-2021 CRP [Mass/Vol] 17.10 mg/L 0.0-3.0 [facility] Work Phone: Comment on above: C-Reactive Protein ( CRP) provides useful information for thediagnosis, therapy and monitoring of inflammatory processesand associated diseases. For the evaluation of Relative Riskfor Cardiovascular Disease, a High Sensitivity CRP (HSCRP)should be ordered. Serum or plasma calcium keyona urement (mass/volume)on 05-19-2021 Calcium [Mass/Vol] 10.1 mg/dL 8.5-10.1 [facility] Work Phone: Serum or plasma creatinine m easurement (mass/volume)on 05-19-2021 Creatinine [Mass/Vol] 1.14 mg/dL 0.55-1.02 [facility] Work Phone: Comment on above: The validity of the calculated GFR & GFRAA in patients over 70 years has not been determined. Clinical correlation is essential. Serum or plasma urea nitroge n measurement (mass/volume)on 05-19-2021 Urea nitrogen [Mass/Vol] 23 mg/dL 7-18 [facility] Work Phone: Thin prep Papanicolaou smear with manual screeningon 05-19-2021 Thin prep Papanicolaou smear with manual screening 7 5-15 [facility] Work Phone: Basophil percentageon 2020 Basophil percentage 103 mg/dL 74-106 [facility] Work Phone: Basophil percentage 140 mmol/L 136-145 [facility] Work Phone: Basophil percentage 3.7 mmol/L 3.5-5.1 [facility] Work Phone: Basophil percentage 104 mmol/L 98-107 [facility] Work Phone: Basophils (Bld) [#/Vol] 7.8 10*3/uL 4.4-11.0 [facility] Work Phone: Chloride [Moles/Vol] 104 mmol/L 98-107 [facility] Work Phone: Glucose [Mass/Vol] 103 mg/dL 74-106 [facility] Work Phone: Comment on above: Fasting Glucose resu lt from 100 to 125 mg/dL suggests IMPAIRED HOMEOSTASIS per A.D.A. criteria.Please note revised GLUCOSE reference range effective 2017. Potassium [Moles/Vol] 3.7 mmol/L 3.5-5.1 [facility] Work Phone: Sodium [Moles/Vol] 140 mmol/L 136-145 [facility] Work Phone: WBC (Bld) [#/Vol] 7.8 10*3/uL 4.4-11.0 [facility] Work Phone: Blood erythrocytes count (nu mber/volume)on 05-12-2021 RBC (Bld) [#/Vol] 3.76 10*6/uL 4.2-5.4 [facility] Work Phone: Blood hemoglobin measurement (mass/volume)on 05-12-2021 Hemoglobin (Bld) [Mass/Vol] 9.8 g/dL 12.0-15.0 [facility] Work Phone: Blood platelet mean volumeon 05-12-2021 Platelet mean volume (Bld) [Entitic vol] 10.6 fL 6.2-12.0 [facility] Work Phone: Determination of erythrocyte mean corpuscular volume (MCV)on 05-12-2021 MCV (RBC) [Entitic vol] 86.7 fL 81-99 [facility] Work Phone: Erythrocyte sedimentation ra dago 05-12-2021 ESR (Bld) [Velocity] 46 mm/h 0-30 [facility] Work Phone: Hematocrit Auto (Bld) [Volum e fraction]on 05-12-2021 Hematocrit (Bld) [Volume fraction] 32.6 % 37-47 [facility] Work Phone: Laboratory - Chemistry and C hemistry - challengeon 05-12-2021 CK [Catalytic activity/Vol] 71 U/L 26-192 [facility] Work Phone: CO2 [Moles/Vol] 28.0 mmol/L 21.0-32.0 [facility] Work Phone: Urea nitrogen/Creatinine [Mass ratio] 19.4 mg/mg 10-20 [facility] Work Phone: Laboratory - Hematology and Cell countson 05-12-2021 Erythrocyte distribution width (RBC) [Entitic vol] 50.2 fL 35.1-43.9 [facility] Work Phone: Erythrocyte distribution width (RBC) [Ratio] 15.6 % 11.6-14.6 [facility] Work Phone: MCH (RBC) [Entitic mass] 26.1 pg 27.0-32.0 [facility] Work Phone: MCHC Auto (RBC) [Mass/Vol]on 05-12-2021 MCHC (RBC) [Mass/Vol] 30.1 g/dL 32-36 [facility] Work Phone: No Panel Informationon 05-12 Estimated GFR (MDRD) Amer 55 mL/min >60 [facility] Work Phone: Comment on above: GFR Calc Estimated GFR (MDRD) Non-Af Amer 46 mL/min >60 [facility] Work Phone: Comment on above: Non- GFR Calc 26.1 pg 27.0-32.0 [facility] Work Phone: 15.6 % 11.6-14.6 [facility] Work Phone: 50.2 fl 35.1-43.9 [facility] Work Phone: 46 mL/min >60 [facility] Work Phone: 55 mL/min >60 [facility] Work Phone: 19.4 RATIO 10-20 [facility] Work Phone: 71 U/L 26-192 [facility] Work Phone: 28.0 mmol/L 21.0-32.0 [facility] Work Phone: Platelets bldon 05-12-2021 Platelets (Bld) [#/Vol] 251 10*3/uL 150-450 [facility] Work Phone: Serum or plasma C reactive p rotein measurement (mass/volume)on 05-12-2021 CRP [Mass/Vol] 9.89 mg/L 0.0-3.0 [facility] Work Phone: Comment on above: C-Reactive Protein ( CRP) provides useful information for thediagnosis, therapy and monitoring of inflammatory processesand associated diseases. For the evaluation of Relative Riskfor Cardiovascular Disease, a High Sensitivity CRP (HSCRP)should be ordered. Serum or plasma calcium keyona urement (mass/volume)on 05-12-2021 Calcium [Mass/Vol] 9.7 mg/dL 8.5-10.1 [facility] Work Phone: Serum or plasma creatinine m easurement (mass/volume)on 05-12-2021 Creatinine [Mass/Vol] 1.24 mg/dL 0.55-1.02 [facility] Work Phone: Comment on above: The validity of the calculated GFR & GFRAA in patients over 70 years has not been determined. Clinical correlation is essential. Serum or plasma urea nitroge n measurement (mass/volume)on 05-12-2021 Urea nitrogen [Mass/Vol] 24 mg/dL 7-18 [facility] Work Phone: Thin prep Papanicolaou smear with manual screeningon 05-12-2021 Thin prep Papanicolaou smear with manual screening 8 5-15 [facility] Work Phone: [phone] Basophil percentageon 2020 Basophil percentage 84 mg/dL 74-106 [facility] Work Phone: Basophil percentage 139 mmol/L 136-145 [facility] Work Phone: Basophil percentage 3.9 mmol/L 3.5-5.1 [facility] Work Phone: Basophil percentage 102 mmol/L 98-107 [facility] Work Phone: Basophils (Bld) [#/Vol] 7.2 10*3/uL 4.4-11.0 [facility] Work Phone: Chloride [Moles/Vol] 102 mmol/L 98-107 [facility] Work Phone: Glucose [Mass/Vol] 84 mg/dL 74-106 [facility] Work Phone: Comment on above: Please note revised GLUCOSE reference range effective 2017. Potassium [Moles/Vol] 3.9 mmol/L 3.5-5.1 [facility] Work Phone: Sodium [Moles/Vol] 139 mmol/L 136-145 [facility] Work Phone: WBC (Bld) [#/Vol] 7.2 10*3/uL 4.4-11.0 [facility] Work Phone: Blood erythrocytes count (nu mber/volume)on 05-05-2021 RBC (Bld) [#/Vol] 3.64 10*6/uL 4.2-5.4 [facility] Work Phone: Blood hemoglobin measurement (mass/volume)on 05-05-2021 Hemoglobin (Bld) [Mass/Vol] 9.8 g/dL 12.0-15.0 [facility] Work Phone: Blood platelet mean volumeon 05-05-2021 Platelet mean volume (Bld) [Entitic vol] 10.3 fL 6.2-12.0 [facility] Work Phone: Determination of erythrocyte mean corpuscular volume (MCV)on 05-05-2021 MCV (RBC) [Entitic vol] 85.7 fL 81-99 [facility] Work Phone: Erythrocyte sedimentation ra dago 05-05-2021 ESR (Bld) [Velocity] 49 mm/h 0-30 [facility] Work Phone: Hematocrit Auto (Bld) [Volum e fraction]on 05-05-2021 Hematocrit (Bld) [Volume fraction] 31.2 % 37-47 [facility] Work Phone: Laboratory - Chemistry and C hemistry - challengeon 05-05-2021 CK [Catalytic activity/Vol] 125 U/L 26-192 [facility] Work Phone: CO2 [Moles/Vol] 28.0 mmol/L 21.0-32.0 [facility] Work Phone: Urea nitrogen/Creatinine [Mass ratio] 18.4 mg/mg 10-20 [facility] Work Phone: Laboratory - Hematology and Cell countson 05-05-2021 Erythrocyte distribution width (RBC) [Entitic vol] 49.7 fL 35.1-43.9 [facility] Work Phone: Erythrocyte distribution width (RBC) [Ratio] 15.9 % 11.6-14.6 [facility] Work Phone: MCH (RBC) [Entitic mass] 26.9 pg 27.0-32.0 [facility] Work Phone: MCHC Auto (RBC) [Mass/Vol]on 05-05-2021 MCHC (RBC) [Mass/Vol] 31.4 g/dL 32-36 [facility] Work Phone: No Panel Informationon 05-05 Estimated GFR (MDRD) Amer 61 mL/min >60 [facility] Work Phone: Comment on above: GFR Calc Estimated GFR (MDRD) Non-Af Amer 50 mL/min >60 [facility] Work Phone: Comment on above: Non- GFR Calc 26.9 pg 27.0-32.0 [facility] Work Phone: 15.9 % 11.6-14.6 [facility] Work Phone: 49.7 fl 35.1-43.9 [facility] Work Phone: 50 mL/min >60 [facility] Work Phone: 61 mL/min >60 [facility] Work Phone: 18.4 RATIO 10-20 [facility] Work Phone: 125 U/L 26-192 [facility] Work Phone: 28.0 mmol/L 21.0-32.0 [facility] Work Phone: Platelets bldon 05-05-2021 Platelets (Bld) [#/Vol] 289 10*3/uL 150-450 [facility] Work Phone: Serum or plasma C reactive p rotein measurement (mass/volume)on 05-05-2021 CRP [Mass/Vol] 16.50 mg/L 0.0-3.0 [facility] Work Phone: Comment on above: C-Reactive Protein ( CRP) provides useful information for thediagnosis, therapy and monitoring of inflammatory processesand associated diseases. For the evaluation of Relative Riskfor Cardiovascular Disease, a High Sensitivity CRP (HSCRP)should be ordered. Serum or plasma calcium keyona urement (mass/volume)on 05-05-2021 Calcium [Mass/Vol] 9.5 mg/dL 8.5-10.1 [facility] Work Phone: Serum or plasma creatinine m easurement (mass/volume)on 05-05-2021 Creatinine [Mass/Vol] 1.14 mg/dL 0.55-1.02 [facility] Work Phone: Comment on above: The validity of the calculated GFR & GFRAA in patients over 70 years has not been determined. Clinical correlation is essential. Serum or plasma urea nitroge n measurement (mass/volume)on 05-05-2021 Urea nitrogen [Mass/Vol] 21 mg/dL 7-18 [facility] Work Phone: Thin prep Papanicolaou smear with manual screeningon 05-05-2021 Thin prep Papanicolaou smear with manual screening 9 5-15 [facility] Work Phone: Basophil percentageon 2020 Basophil percentage 143 mg/dL 74-106 [facility] Work Phone: Basophil percentage 140 mmol/L 136-145 [facility] Work Phone: Basophil percentage 3.6 mmol/L 3.5-5.1 [facility] Work Phone: Basophil percentage 104 mmol/L 98-107 [facility] Work Phone: Basophils (Bld) [#/Vol] 7.2 10*3/uL 4.4-11.0 [facility] Work Phone: Chloride [Moles/Vol] 104 mmol/L 98-107 [facility] Work Phone: Glucose [Mass/Vol] 143 mg/dL 74-106 [facility] Work Phone: Comment on above: Fasting Glucose resu lt greater than or equal to 126 mg/dL suggests DIABETES MELLITUS per A.D.A. criteria.Please note revised GLUCOSE reference range effective 2017. Potassium [Moles/Vol] 3.6 mmol/L 3.5-5.1 [facility] Work Phone: Sodium [Moles/Vol] 140 mmol/L 136-145 [facility] Work Phone: WBC (Bld) [#/Vol] 7.2 10*3/uL 4.4-11.0 [facility]: Blood erythrocytes count (nu mber/volume)on 04-28-2021 RBC (Bld) [#/Vol] 3.42 10*6/uL 4.2-5.4 [facility] Work [facility]: Blood hemoglobin measurement (mass/volume)on 04-28-2021 Hemoglobin (Bld) [Mass/Vol] 9.2 g/dL 12.0-15.0 [facility] Work Phone: Blood platelet mean volumeon 04-28-2021 Platelet mean volume (Bld) [Entitic vol] 10.4 fL 6.2-12.0 [facility] Work Phone: Determination of erythrocyte mean corpuscular volume (MCV)on 04-28-2021 MCV (RBC) [Entitic vol] 87.4 fL 81-99 [facility] Work Phone: Erythrocyte sedimentation ra dago 04-28-2021 ESR (Bld) [Velocity] 49 mm/h 0-30 [facility] Work Phone: Hematocrit Auto (Bld) [Volum e fraction]on 04-28-2021 Hematocrit (Bld) [Volume fraction] 29.9 % 37-47 [facility] Work Phone: Laboratory - Chemistry and C hemistry - challengeon 04-28-2021 CK [Catalytic activity/Vol] 111 U/L 26-192 [facility] Work Phone: CO2 [Moles/Vol] 27.0 mmol/L 21.0-32.0 [facility] Work Phone: Urea nitrogen/Creatinine [Mass ratio] 21.5 mg/mg 10- [facility] Work Phone: [phone] Laboratory - Hematology and Cell countson 04-28-2021 Erythrocyte distribution width (RBC) [Entitic vol] 50.1 fL 35.1-43.9 [facility] Work Phone: [phone] Erythrocyte distribution width (RBC) [Ratio] 15.8 % 11.6-14.6 [facility] Work Phone: [phone] MCH (RBC) [Entitic mass] 26.9 pg 27.0-32.0 [facility] Work Phone: [phone] MCHC Auto (RBC) [Mass/Vol]on 04-28-2021 MCHC (RBC) [Mass/Vol] 30.8 g/dL 32-36 [facility] Work Phone: [phone] No Panel Informationon 04-28 Estimated GFR (MDRD) Amer 50 mL/min >60 [facility] Work Phone: [phone] Comment on above: GFR Calc Estimated GFR (MDRD) Non-Af Amer 41 mL/min >60 [facility] Work Phone: [phone] Comment on above: Non- GFR Calc 26.9 pg 27.0-32.0 [facility] Work Phone: [phone] 15.8 % 11.6-14.6 [facility] Work Phone: [phone] 50.1 fl 35.1-43.9 [facility] Work Phone: [phone] 41 mL/min >60 [facility] Work Phone: [phone] 50 mL/min >60 [facility] Work Phone: [phone] 21.5 RATIO - [facility] Work Phone: 111 U/L 26-192 [facility] Work Phone: [phone] 27.0 mmol/L 21.0-32.0 [facility] Work Phone: Platelets bldon 12-14-2021 Platelets (Bld) [#/Vol] 247 10*3/uL 150-450 [facility] Work Phone: Serum or plasma C reactive p rotein measurement (mass/volume)on 04-28-2021 CRP [Mass/Vol] 17.00 mg/L 0.0-3.0 [facility] Work Phone: Comment on above: C-Reactive Protein ( CRP) provides useful information for thediagnosis, therapy and monitoring of inflammatory processesand associated diseases. For the evaluation of Relative Riskfor Cardiovascular Disease, a High Sensitivity CRP (HSCRP)should be ordered. Serum or plasma calcium keyona urement (mass/volume)on 04-28-2021 Calcium [Mass/Vol] 9.1 mg/dL 8.5-10.1 [facility] Work Phone: Serum or plasma creatinine m easurement (mass/volume)on 04-28-2021 Creatinine [Mass/Vol] 1.35 mg/dL 0.55-1.02 [facility] Work Phone: Comment on above: The validity of the calculated GFR & GFRAA in patients over 70 years has not been determined. Clinical correlation is essential. Serum or plasma urea nitroge n measurement (mass/volume)on 04-28-2021 Urea nitrogen [Mass/Vol] 29 mg/dL 7-18 [facility] Work Phone: Thin prep Papanicolaou smear with manual screeningon 04-28-2021 Thin prep Papanicolaou smear with manual screening 9 -15 [facility] Work Phone: GLUCOSE METERon 04-20-2021 Glucose [Mass/Vol] 258 mg/dL High 85-125 [facility] Comment on above: Performed By: #### L 200.85261 #### [facility] [address] [place] [address] SURG TISSUEon 04-19-2021 SURG TISSUE GRAM STAIN [...] DAPTOMYCIN <1 S CEFTAROLINE <0.5 S Normal [facility] Comment on above: Order Comment: Trung s: M: #2 RIGHT ELBOW CULTURE AEROBIC Performed By: #### M 100.84852 ####[facility] [id number] [place], [place] [address]Tp# [phone] ANAER CULTUREon 04-18-2021 ANAER CULTURE RESULT NO GROWTH OF ANAEROBES Normal [facility] Comment on above: Order Comment: Trung s: M : Nasopharyngeal swab Performed By: #### L 770.23760 #### [facility] [address]# [phone] ANAER CULTURE NO GROWTH OF ANAEROBES AFTER 5 DAYS [facility] Comment on above: Order Comment: Trung s: M: #1 RIGHT ELBOW BONE FOR CULTURE FOR AEROBIC AND ANAEROBIC Performed By: #### M 100.33565 ####[facility] [id number] [place] [address]Tz# [phone] SURG TISSUEon 04-18-2021 SURG TISSUE GRAM STAIN [...] MEROPENEM <4 R DAPTOMYCIN <1 S Normal [facility] Comment on above: Order Comment: Campu s: M: #1 RIGHT ELBOW BONE FOR CULTURE FOR AEROBIC AND ANAEROBIC Performed By: #### M 100.13716 ####[facility] [id number] [place], [place] [address]Bk# [phone] BMPon 04-17-2021 Anion gap [Moles/Vol] 8 mmol/L Normal 5-16 [facility] Comment on above: Order Comment: Campu s: M Performed By: #### L 200.47320 #### [facility] [address] [place] [address] Calcium [Mass/Vol] 9.7 mg/dL Normal 8.5-10.5 [facility] Comment on above: Order Comment: Campu s: M Result Comment: NOTE NEW NORMAL RANGE DUE TO REAGENT CHANGE Performed By: #### L 200.05011 #### [facility] [address] [place] [address] Chloride [Moles/Vol] 106 mmol/L Normal 98-107 [facility] Comment on above: Order Comment: Campu s: M Performed By: #### L 200.87551 #### [facility] [address] [place] [address] CO2 [Moles/Vol] 25.0 mmol/L Normal 21-32 [facility] Comment on above: Order Comment: Campu s: M Performed By: #### L 200.94907 #### [facility] [address] [place] [address] Creatinine [Mass/Vol] 1.03 mg/dL High 0.510-0.950 [facility] Comment on above: Order Comment: Campu s: M Result Comment: Nash ents receiving either N-Acetylcysteine (NAC) or Metamizole prior to venipuncture, may have falsely depressed results. Performed By: #### L 200.97839 #### [facility] [address] [place] [address] Glucose [Mass/Vol] 218 mg/dL High 70-100 [facility] Comment on above: Order Comment: Campu s: M Result Comment: 70-1 00- Normal Fasting; 100-125 Impaired Fasting; greater than 126 on more than one result- Diabetes. ADA guidelines. Results may be falsely elevated after the administration of Sulfapyridine. Results may be falsely depressed after the administration of Sulfasalazine. Performed By: #### L 200.39361 #### [facility] [address] [place] [address] Potassium [Moles/Vol] 4.5 mmol/L Normal 3.5-5.1 [facility] Comment on above: Order Comment: Campu s: M Performed By: #### L 200.41914 #### [facility] [address] [place] [address] Sodium [Moles/Vol] 139 mmol/L Normal 136-145 [facility] Comment on above: Order Comment: Campu s: M Performed By: #### L 200.96032 #### [facility] [place] [address] Urea nitrogen [Mass/Vol] 28 mg/dL High 7-26 [facility] Comment on above: Order Comment: Campu s: M Performed By: #### L 200.40061 #### [facility] [place] [address] Urea nitrogen/Creatinine [Mass ratio] 27 mg/mg High 15-24 [facility] Comment on above: Order Comment: Campu s: M Performed By: #### L 200.66870 #### [facility] [place] [address] CKon 04-17-2021 CK [Catalytic activity/Vol] 43 U/L Normal 28-152 [facility] Comment on above: Order Comment: Campu s: M Result Comment: NOTE NEW NORMAL RANGE DUE TO REAGENT CHANGE Performed By: #### L 500.44260, L500.55359, L500.63962 ####[facility] [id number] [place], [place] [address]Ba# [phone] GFR ESTon 04-17-2021 IF AMER Greater than [address] [facility] Comment on above: Order Comment: Campu s: M Performed By: #### L 500.15076, L500.73979, L500.23948 ####[facility] [id number] [place], [place] [address]Oa# [phone] IF non-AFR AMER 53 Normal [facility] Comment on above: Order Comment: Campu s: M Performed By: #### L 500.90517, L500.03383, L500.54335 ####[facility] [id number] [place], [place] [address]Nq# [phone] GLUCOSE METERon 04-17-2021 Glucose [Mass/Vol] 266 mg/dL High 85-125 [facility] Glucose [Mass/Vol] 217 mg/dL High 85-125 [facility] Glucose [Mass/Vol] 277 mg/dL High 85-125 [facility] Glucose [Mass/Vol] 228 mg/dL High 85-125 [facility] Glucose [Mass/Vol] 209 mg/dL High 85-125 [facility] OTDSon 04-17-2021 OTDS Occupational Therapy Inpatient Last Visit Note The inpatient Occupational Therapy care is discontinued at this time for the following reasons: Discharge from hospital. [facility] THIS DATE AM-PAC Daily Activities: Putting [...] contact the Acute Therapy Department at extension [phone] Services: Total Billed: 25 minutes (Timed: 25, Untimed: 0) 25.00 Timed: [51498] ADL-HOME MANAGEMENT EA 15 MIN [facility] PATIENT NAME: JOSELINE ELLIS [address] [place] MEDICAL REC #: [id number] [place] [address] ADMIT DATE: SERVICE DATE: 04/17/21 Occup. Therapy Discharge Summary ATTENDING PHSofia: Rajwinder Stout MD 0.00 Untimed: [] OT Treatment General ORDER Signed by: KANCHAN HOSKINS 04/17/2021 14:41:08 - CoSigned By: ZORA MURRIETA 04/17/2021 3:58:27 PM [facility] PATIENT NAME: JOSELINE ELLIS [facility] [address] [place] MEDICAL REC #: [id number] [place] [address] ADMIT DATE: SERVICE DATE: 04/17/21 Occup. Therapy Discharge Summary ATTENDING PHY: Rajwinder Stout MD [facility] 04-17-2021 [facility] Patient Name: JOSELINE [facility]LLIS [facility] [facility] [address] Date of : [address] [place] [address] Unit Number: [id number] Progress Note-Hospitalist Patient Status: [facility] Attending Doctor: Rajwinder Stout MD Service Date: [...] She is planning to be discharged to detention today. Objective (ROS) Nursing Vitals Vital Signs [...] upper extremity dressing noted, pulses palpable bilaterally.] ANALYTICAL TECHNICIAN: [Patient awake, alert, oriented 3. No focal [...] will be resumed at discharge. -PT/OT advised detention placement which was arranged by psychosocial rehabilitation counselor. -Continue other medications as ordered and supportive care. -Discharge plans per orthopedics. Call for any other questions. Disclaimer This dictation was created using voice recognition software. Phonetic and/or minor grammatical errors may exist. eSign Date and Time Andrés Galvin Verified/Reviewed by 04/17/21 1526 [facility] Progress Note-Hospitalist [facility] PROG.IDon 04-17-2021 PROG.ID [facility] Patient Name: JOSELINE ELLIS [address] Date of : [address] [place], [place] [address] Unit Number: [id number] Progress Note-Infectious Dis Patient Status: [facility] [employer] [facility] [employer] Attending Doctor: Rajwinder Stout MD Service Date: [...] David MD Verified/Reviewed by 04/17/21 0854 Normal [facility] Progress Note-Infectious Dis Normal [facility] [id number] 04-17-2021 SARS-CoV-2 (COVID-19) RNA ADE+probe Ql (Unsp spec) Negative Invalid Interpretation Code Negative [facility] Comment on above: Order Comment: Trung s: [...] performed by PCR. Performed By: #### L 770.25172 ####[facility] [id number] [place], [place] [address]Ur# [phone] BMPon 04-16-2021 Anion gap [Moles/Vol] 5 mmol/L Normal 5-16 [facility] Comment on above: Order Comment: Trung s: M Performed By: #### L 500.29639, L500.88765, L550.90182 ####[facility] [id number] [place], [place] [address]Fv# [phone] Calcium [Mass/Vol] 9.5 mg/dL Normal 8.5-10.5 [facility] Comment on above: Order Comment: Campu s: M Result Comment: NOTE NEW NORMAL RANGE DUE TO REAGENT CHANGE Performed By: #### L 500.14152, L500.85452, L550.35827 ####[facility] [id number] [place], [place] [address]Cj# [phone] Chloride [Moles/Vol] 108 mmol/L High 98-107 [facility] Comment on above: Order Comment: Campu s: M Performed By: #### L 500.33551, L500.40816, L550.38301 ####[facility] [id number] [place], [place] [address]Ts# [phone] CO2 [Moles/Vol] 26.0 mmol/L Normal 21-32 [facility] Comment on above: Order Comment: Campu s: M Performed By: #### L 500.53232, L500.14211, L550.03028 ####[facility] [id number] [place], [place] [address]Qc# [phone] Creatinine [Mass/Vol] 1.13 mg/dL High 0.510-0.950 [facility] Comment on above: Order Comment: Campu s: M Result Comment: Nash ents receiving either N-Acetylcysteine (NAC) or Metamizole prior to venipuncture, may have falsely depressed results. Performed By: #### L 500.67169, L500.60879, L550.77791 ####[facility] [id number] [place], [place] [address]Cn# [phone] Glucose [Mass/Vol] 188 mg/dL High 70-100 [facility] Comment on above: Order Comment: Campu s: M Result Comment: 70-1 00- Normal Fasting; 100-125 Impaired Fasting; greater than 126 on more than one result- Diabetes. ADA guidelines. Results may be falsely elevated after the administration of Sulfapyridine. Results may be falsely depressed after the administration of Sulfasalazine. Performed By: #### L 500.36898, L500.81884, L550.82697 ####[facility] [id number] [place], [place] [address]Ck# [phone] Potassium [Moles/Vol] 4.5 mmol/L Normal 3.5-5.1 [facility] Comment on above: Order Comment: Campu s: M Performed By: #### L 500.35052, L500.73101, L550.12581 ####[facility] [id number] [place], [place] [address]Ta# [phone] Sodium [Moles/Vol] 139 mmol/L Normal 136-145 [facility] Comment on above: Order Comment: Campu s: M Performed By: #### L 500.08441, L500.76455, L550.60816 ####[facility] [facility] [id number] [place], [place] [address]Ph# [phone] Urea nitrogen [Mass/Vol] 28 mg/dL High 7-26 [facility] Comment on above: Order Comment: Campu s: M Performed By: #### L 500.85759, L500.04472, L550.99489 ####[facility] [id number] [place] [address]Gc# [phone] Urea nitrogen/Creatinine [Mass ratio] 25 mg/mg High 15-24 [facility] Comment on above: Order Comment: Campu s: M Performed By: #### L 500.12525, L500.53725, L550.51564 ####[facility] [id number] [place] [address]Av# [phone] CBC W/DIFFon 04-16-2021 BASO ABS 0.00 K/CU MM Normal 0-0.2 [facility] Comment on above: Order Comment: Campu s: M Performed By: #### L 200.44515, L200.22393 ####[facility] [id number] [place] [address]Af# [phone] Basophils/100 WBC (Bld) 0.2 % Normal 0-2 M [facility] Comment on above: Order Comment: Campu s: M Performed By: #### L 200.15650, L200.83313 ####[facility] [id number] [place], [place] [address]Pz# [phone] EOS ABS 0.40 K/CU MM Normal 0-0.5 [facility] Comment on above: Order Comment: Campu s: M Performed By: #### L 200.55425, L200.73889 ####[address] [address]Aq# [phone] Eosinophils/100 WBC (Bld) 4.1 % Normal 0-5 [facility] Comment on above: Order Comment: Campu s: M Performed By: #### L 200.67068, L2.30940 ####[address] [address]Gd# [phone] Erythrocyte distribution width (RBC) [Ratio] 15.3 % High 11-14.5 [facility] Comment on above: Order Comment: Campu s: M Performed By: #### L 200.30551, L2.05326 ####[address] [address]Nf# [phone] Hematocrit (Bld) [Volume fraction] 30.2 % Low 35.0-47.0 [facility] Comment on above: Order Comment: Campu s: M Performed By: #### L 200.94807, L2.67470 ####[address] [address]Nb# [phone] Hemoglobin (Bld) [Mass/Vol] 9.4 g/dL Low 11.5-15.5 [facility] Comment on above: Order Comment: Campu s: M Performed By: #### L 200.90602, L200.86620 ####[facility] [id number] [place], [place] [address]Dd# [phone] IMMATR GRAN ABS 0.00 K/CU MM Normal Less than 2 [facility] Comment on above: Order Comment: Campu s: M Performed By: #### L 200.85027, L201397 ####[facility] [id number] [place], [place] [address]Tt# [phone] IMMATURE GRAN % 0.5 % Normal Less than 2 [facility] Comment on above: Order Comment: Campu s: M Performed By: #### L 200.30260, L270973 ####[address] [address]Lk# [phone] LYMPH ABS 1.60 K/CU MM Normal 0.9-4.4 [facility] Comment on above: Order Comment: Campu s: M Performed By: #### L 200.39087, L2200 ####[place] [address]Ph# [phone] Lymphocytes/100 WBC (Bld) 18.4 % Low 20-40 [facility] Comment on above: Order Comment: Campu s: M Performed By: #### L 200.56815, L278711 ####[address] [address]Is# [phone] MCHC (RBC) [Mass/Vol] 31.1 g/dL Low 32.0-36.0 [facility] Comment on above: Order Comment: Campu s: M Performed By: #### L 200.57133, L219932 ####[place] [address]Ph# [phone] MCV (RBC) [Entitic vol] 86.0 fL Normal 80.0-99.0 [facility] Comment on above: Order Comment: Campu s: M Performed By: #### L 200.63949, L264794 ####[address] [address]De# [phone] MONO ABS 0.50 K/CU MM Normal 0.1-1.1 [facility] Comment on above: Order Comment: Campu s: M Performed By: #### L 200.00139, L200.75102 ####[facility] [id number] [place], [place] [address]Kw# [phone] Monocytes/100 WBC (Bld) 6.4 % Normal 2-10 [facility] Comment [facility] above: Order Comment: Campu s: M Performed By: #### L 200.21346, L2.77021 ####[facility] [id number] [place], [place] [address]At# [phone] NEUTROPHIL ABS 5.90 K/CU MM Normal 2.0-8.3 [facility] [place] Comment on above: Order Comment: Campu s: M Performed By: #### L 200.74328, L292651 ####[facility] [id number] [place], [place] [address]Ov# [phone] Neutrophils/100 WBC (Bld) 70.4 % Normal 45-75 [facility] Comment on above: Order Comment: Campu s: M Performed By: #### L 200.52475, L230389 ####[facility] [id number] [place], [place] [address]Jz# [phone] Nucleated RBC/100 WBC (Bld) [Ratio] 0.0 % Normal Less than 1 [facility] Comment on above: Order Comment: Campu s: M Performed By: #### L 200.62320, L250299 ####[facility] [id number] [place], [place] [address]Sv# [phone] Platelet mean volume (Bld) [Entitic vol] 9.8 fL Normal 9.4-12.4 [facility] Comment on above: Order Comment: Campu s: M Performed By: #### L 200.87216, L200.01958 ####[facility] [id number] [place], [place] [address]Bq# [phone] PLT 227 K/CU MM Normal 150-450 [facility] Comment on above: Order Comment: Campu s: M Performed By: #### L 200.77911, L200.37533 ####[facility] [id number] [place], [place] [address]Mx# [phone] RBC 3.51 M/CU MM Low 3.90-5.30 [facility] Comment on above: Order Comment: Campu s: M Performed By: #### L 200.53639, L200.31316 ####[facility] [id number] [place], [place] [address]Sl# [phone] WBC 8.4 K/CUMM Normal 4.5-11.0 [facility] Comment on above: Order Comment: Campu s: M Performed By: #### L 200.39187, L200.68323 ####[facility] [id number] [place], [place] [address]Gk# [phone] CRPon 04-16-2021 CRP 4.14 MG/DL Normal LESS THAN 1 [facility] Comment on above: Order Comment: Campu s: M Performed By: #### L 500.34623, L500.05601, L550.13011 ####[facility] [id number] [place], [place] [address]Or# [phone] GFR ESTon 04-16-2021 IF AMER 58 Normal [facility] Comment on above: Order Comment: Campu s: M Performed By: #### L 500.48262, L500.80018, L550.19633 ####[facility] [id number] [place], [place] [address]Bv# [phone] IF non-AFR AMER 48 Normal [facility] Comment on above: Order Comment: Campu s: M Performed By: #### L 500.88254, L500.26817, L550.40065 ####[facility] [id number] [place], [place] [address]Ak# [phone] GLUCOSE METERon 04-16-2021 Glucose [Mass/Vol] 239 mg/dL High 85-125 [facility] Glucose [Mass/Vol] 202 mg/dL High 85-125 [facility] Glucose [Mass/Vol] 246 mg/dL High 85-125 [facility] Sylvia OTPNon 04-16-2021 OT Progress Note Normal [facility] OTPN Occupational Therapy Inpatient Treatment Note Medical Diagnosis: s/p Removal of hardware right distal humerus, irrigation debridement of skin subcutaneous tissue muscle and bone right arm with cultures, placement antibiotic spacer right distal humerus by Dr. Stout on 04/13/2021 OCCUPATIONAL PROFILE AND HISTORY Demographics: Age: 71Y Gender: Female Primary Language: Hong Konger Preferred Language: Hong Konger Referring Service/Team: Orthopedics Rehabilitation Precautions/Restrict ions: NWB [...] Eating a Meal: A little help needed [facility] PATIENT NAME: JOSELINE ELLIS [address] [facility] [facility] [address] [place] MEDICAL REC #: [id number] [place] [address] ADMIT DATE: SERVICE DATE: 04/16/21 Occupational Therapy [...] Occupational Therapy treatment is to include: Ther [facility] PATIENT NAME: JOSELINE ELLIS Dr. Chilel MEDICAL REC #: [id number] [place] [address] ADMIT DATE: SERVICE DATE: 04/16/21 Occupational Therapy [...] would sherrie (more content not included)... Normal [facility] Patient Name: JOSELINE ELLIS Drive [address] Date of : [address] [place] [address] Unit Number: [id number] Progress Note-Hospitalist Patient Status: REG [facility] Attending Doctor: Rajwinder Stout MD Service Date: [...] upper extremity dressing noted, pulses palpable bilaterally.] ANALYTICAL TECHNICIAN: [Patient awake, alert, oriented 3. No focal neurological deficits. ] PSYCHIATRIC: [Normal mood and affect. Patient not in apparent distress.] Diagnostic Data: [facility] 24hr [facility] 04/16/21 0617: Whole Bld Glucose 202 H [...] will be resumed at discharge. -PT/OT advised detention placement. Involve social media specialist for appropriate discharge planning. -Continue other medications as ordered and supportive care. -Will continue to follow the patient for medical management. Disclaimer This dictation was created using voice recognition software. Phonetic and/or minor grammatical errors may exist. eSign Date and Time Andrés Galvin Verified/Reviewed by 04/16/21 1615 [facility] Progress Note-Hospitalist [facility] PROG.ORTHOon 04-16-2021 PROG.ORTHO [facility] Patient Name: JOSELINE ELLIS [address] Date of : [address] [place] [address] Unit Number: [id number] Progress Note-Ortho Patient Status: REG SDC Attending [...] Rajwinder Stout MD Verified/Reviewed by 04/16/21 0720 [facility] Progress Note-Ortho [facility] PTPNon 04-16-2021 PT Progress Note Normal [facility] PTPN Physical Therapy Inpatient Treatment Note Medical Diagnosis: s/p Removal of hardware right distal humerus, irrigation debridement of skin subcutaneous tissue muscle and bone right arm with cultures, placement antibiotic spacer right distal humerus by Dr. Stout on 04/13/2021 Demographics: Age: 71Y Gender: Female Primary Language: Hong Konger Preferred Language: Hong [place]er Rehabilitation Precautions/Restrict ions: NWB RUE, sling, fall [...] Modifier = CL Vital Signs: Not assessed. [facility] PATIENT NAME: JOSELINE ELLIS [facility] [address] [place]l MEDICAL REC #: [id number] [place] [address] ADMIT DATE: SERVICE DATE: 04/16/21 Physical Therapy [...] TREATMENT GOAL REVIEW: 1. Bed mobility with HI. - Not Met: Ongoing 2. Transfers with HI. - Not Met Ongoing 3. Pt will ambulate 80ft with WBQC and maintain NWB precautions on her R UE with HI for safe homegoing. - Not Met Ongoing 4. Pt will negotiate one step without HR and HI for safe homegoing. - Not Met: Ongoing [...] regarding this service, please contact the Acute [facility] PATIENT NAME: JOSELINE ELLIS [facility] Dr[address] [place]l MEDICAL REC #: [id number] [place] [address] ADMIT DATE: SERVICE DATE: 04/16/21 Physical Therapy Progress Note ATTENDING PHY: Rajwinder Stout MD Therapy Department at extension [phone] Location of Patient at End of Therapy Session: In chair, call light within reach Services: Total Billed: 11 minutes (Timed: 11, Untimed: 0) 11.00 Timed: [18796] GAIT TRAIN EA 15 MIN 0.00 Untimed: [] PT Treatment- General ORDER Signed by: Pati (more content not included)... Normal [facility] WSR/MODon 04-16-2021 WSR/MOD 55 MM/HR High 0-30 [facility] Comment on above: Order Comment: Campu s: M Performed By: #### L 200.54605, L200.45011 ####[facility] [id number] [place], [place] [address]Uq# [phone] BMPon 04-15-2021 Anion gap [Moles/Vol] 7 mmol/L Normal 5-16 [facility] Comment on above: Order Comment: Campu s: M Performed By: #### L 500.06210, L500.68726, L500.60182, L500.07092 ####[facility] [id number] [place], [place] [address]Tc# [phone] Calcium [Mass/Vol] 9.5 mg/dL Normal 8.5-10.5 [facility] Comment on above: Order Comment: Campu s: M Result Comment: NOTE NEW NORMAL RANGE DUE TO REAGENT CHANGE Performed By: #### L 500.49241, L500.00558, L500.24939, L500.20545 ####[facility] [id number] [place], [place] [address]Nj# [phone] Chloride [Moles/Vol] 107 mmol/L Normal 98-107 [facility] Comment on above: Order Comment: Campu s: M Performed By: #### L 500.63873, L500.96020, L500.93901, L500.76523 ####[facility] [id number] [place], [place] [address]Bs# [phone] CO2 [Moles/Vol] 25.0 mmol/L Normal 21-32 [facility] Comment on above: Order Comment: Campu s: M Performed By: #### L 500.02966, L500.88429, L500.68241, L500.65213 ####[facility] [id number] [place], [place] [address]Ji# [phone] Creatinine [Mass/Vol] 1.37 mg/dL High 0.510-0.950 [facility] Comment on above: Order Comment: Campu s: M Result Comment: Nash ents receiving either N-Acetylcysteine (NAC) or Metamizole prior to venipuncture, may have falsely depressed results. Performed By: #### L 500.44275, L500.03026, L500.70628, L500.57895 ####[facility] [id number] [place], [place] [address]We# [phone] Glucose [Mass/Vol] 163 mg/dL High 70-100 [facility] Comment on above: Order Comment: Campu s: M Result Comment: 70-1 00- Normal Fasting; 100-125 Impaired Fasting; greater than 126 on more than one result- Diabetes. ADA guidelines. Results may be falsely elevated after the administration of Sulfapyridine. Results may be falsely depressed after the administration of Sulfasalazine. Performed By: #### L 500.89247, L500.04110, L500.73897, L500.02280 ####[facility] [id number] [place], [place] [address]Dv# [phone] Potassium [Moles/Vol] 4.4 mmol/L Normal 3.5-5.1 [facility] Comment on above: Order Comment: Campu s: M Performed By: #### L 500.31128, L500.84026, L500.04972, L500.29271 ####[facility] [id number] [place], [place] [address]Zm# [phone] Sodium [Moles/Vol] 139 mmol/L Normal 136-145 [facility] Comment on above: Order Comment: Campu s: M Performed By: #### L 500.98446, L500.23318, L500.22506, L500.30324 ####[facility] [id number] [place] [address]Xn# [phone] Urea nitrogen [Mass/Vol] 33 mg/dL High 7-26 [facility] Comment on above: Order Comment: Campu s: M Performed By: #### L 500.28879, L500.77370, L500.06850, L500.23086 ####[facility] [id number] [place], [place] [address]Wy# [phone] Urea nitrogen/Creatinine [Mass ratio] 24 mg/mg Normal 15-24 [facility] Comment on above: Order Comment: Campu s: M Performed By: #### L 500.66653, L500.82226, L500.86486, L500.28192 ####[facility] [id number] [place], [place] [address]Ho# [phone] CBCon 04-15-2021 Erythrocyte distribution width (RBC) [Ratio] 15.4 % High 11-14.5 [facility] Comment on above: Order Comment: Campu s: M Performed By: #### L 500.17011, L500.88596 #### [facility] [address] [place] [address] Hematocrit (Bld) [Volume fraction] 32.6 % Low 35.0-47.0 [facility] Comment on above: Order Comment: Campu s: M Performed By: #### L 500.79091, L500.82400 #### [facility] [address] [place] [address] Hemoglobin (Bld) [Mass/Vol] 10.0 g/dL Low 11.5-15.5 [facility] Comment on above: Order Comment: Campu s: M Performed By: #### L 500.78193, L5.69301 #### [facility] [address] [place] [address] MCHC (RBC) [Mass/Vol] 30.7 g/dL Low 32.0-36.0 [facility] Comment on above: Order Comment: Campu s: M Performed By: #### L 500.10093, L500.82410 #### [facility] [address] [place] [address] MCV (RBC) [Entitic vol] 87.2 fL Normal 80.0-99.0 [facility] Comment on above: Order Comment: Campu s: M Performed By: #### L 500.71902, L500.05280 #### [facility] [address] [place] [address] Nucleated RBC/100 WBC (Bld) [Ratio] 0.0 % Normal Less than 1 [facility] Comment on above: Order Comment: Campu s: M Performed By: #### L 500.27423, L500.93274 #### [facility] [address] [place], [place] [address] Platelet mean volume (Bld) [Entitic vol] 10.2 fL Normal 9.4-12.4 [facility] Comment on above: Order Comment: Campu s: M Performed By: #### L 500.79849, L500.58604 #### [facility] [place] [address] PLT 227 K/CU MM Normal 150-450 [facility] Comment on above: Order Comment: Campu s: M Performed By: #### L 500.24106, L500.99279 #### [facility] [address] [place] [address] RBC 3.74 M/CU MM Low 3.90-5.30 [facility] Comment on above: Order Comment: Campu s: M Performed By: #### L 500.35649, L500.70221 #### [facility] [address] [place] [address] WBC 6.7 K/CUMM Normal 4.5-11.0 [facility] Comment on above: Order Comment: Campu s: M Performed By: #### L 500.32531, L500.20307 #### [facility] [address] [place], [place] [address] Nora 04-15-2021 FERR 60.0 NG/ML Normal 8.0-307.0 [facility] Comment on above: Order Comment: Campu s: M Performed By: #### L 500.46565, L500.66248, L500.22566, L500.82639 ####[facility] [id number] [place], [place] [address]Nv# [phone] GFR ESTon 04-15-2021 IF AMER 46 Normal [facility] Comment on above: Order Comment: Campu s: M Performed By: #### L 500.78851, L500.58730, L500.11504, L500.43883 ####[facility] [id number] [place], [place] [address]Ho# [phone] IF non-AFR AMER 38 Normal [facility] Comment on above: Order Comment: Campu s: M Performed By: #### L 500.28010, L500.10894, L500.91807, L500.91811 ####[facility] [id number] [place], [place] [address]Yr# [phone] GLUCOSE METERon 04-15-2021 Glucose [Mass/Vol] 226 mg/dL High 85-125 [facility] Glucose [Mass/Vol] 281 mg/dL High 85-125 [facility] IRON PANELon 04-15-2021 Iron [Mass/Vol] 24 ug/dL Low 50-170 [facility] Comment on above: Order Comment: Campu s: M Result Comment: Nash ents treated with metal-binding drugs (e.g.deferoxamine) may have depressed iron values, as chelated iron may not properly react in the Siemens iron assay. Performed By: #### L 500.91274, L500.60762, L500.08675, L500.04445 ####[facility] [id number] [place], [place] [address]Nb# [phone] IRON SAT 8 % Low 22-44 [facility] Comment on above: Order Comment: Campu s: M Performed By: #### L 500.70318, L500.20050, L500.20956, L500.63902 ####[facility] [id number] [place], [place] [address]Oz# [phone] TIBC 294 UG/DL Normal 221-481 [facility] Comment on above: Order Comment: Campu s: M Performed By: #### L 500.21119, L500.88899, L500.74606, L500.27042 ####[facility] [id number] [place], [place] [address]Ro# [phone] OTPNon 04-15-2021 OT Progress Note Normal [facility] OTPN Occupational Therapy Inpatient Treatment Note Medical Diagnosis: s/p Removal of hardware right distal humerus, irrigation debridement of skin subcutaneous tissue muscle and bone right arm with cultures, placement antibiotic spacer right distal humerus by Dr. Stout on 04/13/2021 OCCUPATIONAL PROFILE AND HISTORY Demographics: Age: 71Y Gender: Female Primary Language: Hong Konger Preferred Language: Hong [place]er Referring Service/Team: Orthopedics Rehabilitation Precautions/Restrict ions: NWB [...] Eating a Meal: A little help needed [facility] PATIENT NAME: JOSELINE ELLIS [address] [facility] [address] [place]l MEDICAL REC #: [id number] [place] [address] ADMIT DATE: SERVICE DATE: 04/15/21 Occupational Therapy [...] IADL and ADLs training, pain management, functional [facility] PATIENT NAME: JOSELINE ELLIS [address] [place] MEDICAL REC #: [id number] [place] [address] ADMIT DATE: SERVICE DATE: 04/15/21 Occupational Therapy [...] hours/day, 5 (more content not included)... Normal [facility] JOSELINE ELLIS [address] Date of : [address] [place] [address] Unit Number: [id number] Progress Note-Hospitalist Patient Status: REG [facility] Attending Doctor: Rajiwnder Stout MD Service Date: 04/15/21922 Chief Complaint [...] upper extremity dressing noted, pulses palpable bilaterally.] ANALYTICAL TECHNICIAN: [Patient awake, alert, oriented 3. No focal [...] will be resumed at discharge. -PT/OT advised detention placement. Involve social media specialist for appropriate discharge planning. -Continue other medications as ordered and supportive care. -Will continue to follow the patient for medical management. Disclaimer This dictation was created using voice recognition software. Phonetic and/or minor grammatical errors may exist. eSign Date and Time Andrés Galivn Verified/Reviewed by 04/15/21 0933 [facility] Progress Note-Hospitalist Normal [facility] PROG.IDon 04-15-2021 PROG.ID [facility] Patient Name: JOSELINE ELLIS [address] Date of : [address] [place] [address] Unit Number: [id number] Progress Note-Infectious Dis Patient Status: REG [facility] Attending Doctor: Rajwinder Stout MD Service Date: [...] Gautam David MD Verified/Reviewed by 04/15/21 1147 [facility] Progress Note-Infectious Dis [facility] PROG.ORTHOon 04-15-2021 PROG.[facility] Patient Name: JOSELINE ELLIS [address] Date of : [address] [place] [address] Unit Number: [id number] Progress Note-Ortho Patient Status: REG SDC Attending [...] may exist. eSign Date and Time Rajwinder Sotut MD Verified/Reviewed by 04/15/[address] [place], [place] [address]on Progress Note-Ortho Normal [facility] PTPNon 04-15-2021 PT Progress Note Normal [facility] PTPN Physical Therapy Inpatient Treatment Note Medical Diagnosis: s/p Removal of hardware right distal humerus, irrigation debridement of skin subcutaneous tissue muscle and bone right arm with cultures, placement antibiotic spacer right distal humerus by Dr. Stout on 04/13/2021 Demographics: Age: 71Y Gender: Female Primary Language: Hong Konger Preferred Language: Hong [place]er Rehabilitation Precautions/Restrict ions: NWB RUE, sling, fall [...] with Railing: A lot of help needed [facility] PATIENT NAME: JOSELINE ELLIS [address] [facility] [address] [place]l MEDICAL REC #: [id number] [place] [id number] ADMIT DATE: SERVICE DATE: 04/15/21 Physical Therapy [...] TREATMENT GOAL REVIEW: 1. Bed mobility with HI. - Not Met: Ongoing 2. Transfers with HI. - Not Met Ongoing 3. Pt will ambulate 80ft with WBQC and maintain NWB precautions on her R UE with HI for safe homegoing. - Not Met Ongoing 4. Pt will negotiate one step without HR and HI for safe homegoing. - Not Met: Ongoing [...] days/week. Recommended Equipment: None issued this visit. [facility] PATIENT NAME: JOSELINE ELLIS [address] [place] [address] Dr. Chilel MEDICAL REC #: [id number] [place] [address] ADMIT DATE: SERVICE DATE: 04/15/21 Physical Therapy Progress Note ATTENDING PHY: Rajwinder Stout MD Recommended Consults: None currently. Development of Plan of Care: There was no change to plan of care today. If there are any questions regarding this service, please contact the Acute Therapy Department at extension [phone] Location of Patient at (more content not included)... Normal [facility] VANC TROUGHon 04-15-2021 VANC TROUGH 16.7 MCG/ML Normal 15.0-20.0 [facility] Comment on above: Order Comment: Campu s: MPt. Discharged Performed By: #### L [phone] ####[facility] [id number] [place] [address]Yy# [phone] BMPon 04-14-2021 Anion gap [Moles/Vol] 9 mmol/L Normal 5-16 [facility] Comment on above: Order Comment: Campu s: M Performed By: #### L 500.89104, L500.11258 #### [facility] [address] [place] [address] Calcium [Mass/Vol] 9.4 mg/dL Normal 8.5-10.5 [facility] Comment on above: Order Comment: Campu s: M Result Comment: NOTE NEW NORMAL RANGE DUE TO REAGENT CHANGE Performed By: #### L 500.49428, L500.06312 #### [facility] [place] [address] Chloride [Moles/Vol] 106 mmol/L Normal 98-107 [facility] Comment on above: Order Comment: Campu s: M Performed By: #### L 500.78124, L500.19315 #### [facility] [address] [place] [address] CO2 [Moles/Vol] 25.0 mmol/L Normal 21-32 [facility] Comment on above: Order Comment: Campu s: M Performed By: #### L 500.12985, L5.65179 #### [facility] [address] [place] [address] Creatinine [Mass/Vol] 1.24 mg/dL High 0.510-0.950 [facility] Comment on above: Order Comment: Campu s: M Result Comment: Nash ents receiving either N-Acetylcysteine (NAC) or Metamizole prior to venipuncture, may have falsely depressed results. Performed By: #### L 500.26587, L5.69571 #### [facility] [address] [place] [address] Glucose [Mass/Vol] 145 mg/dL High 70-100 [facility] Comment on above: Order Comment: Campu s: M Result Comment: 70-1 00- Normal Fasting; 100-125 Impaired Fasting; greater than 126 on more than one result- Diabetes. ADA guidelines. Results may be falsely elevated after the administration of Sulfapyridine. Results may be falsely depressed after the administration of Sulfasalazine. Performed By: #### L 500.51508, L5.73153 #### [facility] [address] [place] [address] Potassium [Moles/Vol] 4.4 mmol/L Normal 3.5-5.1 [facility] Comment on above: Order Comment: Campu s: M Result Comment: Slig ht Hemolysis, Result may be affected. Performed By: #### L 500.28121, L500.77962 #### [facility] [address] [place] [address] Sodium [Moles/Vol] 140 mmol/L Normal 136-145 [facility] Comment on above: Order Comment: Campu s: M Performed By: #### L 500.95374, L500.97216 #### [facility] [place] [address] Urea nitrogen [Mass/Vol] 27 mg/dL High 7-26 [facility] Comment on above: Order Comment: Campu s: M Performed By: #### L 500.81894, L500.89544 #### [facility] [address] [place] [address] Urea nitrogen/Creatinine [Mass ratio] 22 mg/mg Normal 15-24 [facility] Comment on above: Order Comment: Campu s: M Performed By: #### L 500.86416, L500.70989 #### [facility] [address] [place] [address] CBC W/DIFFon 04-14-2021 BASO ABS 0.00 K/CU MM Normal 0-0.2 [facility] Comment on above: Order Comment: Campu s: M Performed By: #### L 200.89801 ####[facility] [id number] [place] [address]84[address]Ph# [phone] Basophils/100 WBC (Bld) 0.2 % Normal 0-2 M [facility] Comment on above: Order Comment: Campu s: M Performed By: #### L 200.57997 ####[facility] [id number] [place] [address]84[address]Ph# [phone] EOS ABS 0.10 K/CU MM Normal 0-0.5 [facility] Comment on above: Order Comment: Campu s: M Performed By: #### L 200.25788 ####[facility] [id number] [place], [place] [address]Ph# [phone] Eosinophils/100 WBC (Bld) 1.5 % Normal 0-5 [facility] Comment on above: Order Comment: Campu s: M Performed By: #### L 200.43199 ####[facility] [id number] [place], [place] [address]Vf# [phone] Erythrocyte distribution width (RBC) [Ratio] 15.2 % High 11-14.5 [facility] [place] Comment on above: Order Comment: Campu s: M Performed By: #### L 200.64576 ####[facility] [id number] [place], [place] [address]38[address]Ph# [phone] Hematocrit (Bld) [Volume fraction] 30.1 % Low 35.0-47.0 [facility] Comment on above: Order Comment: Campu s: M Performed By: #### L 200.85967 ####[place] [address]24[address]Ph# [phone] Hemoglobin (Bld) [Mass/Vol] 9.7 g/dL Low 11.5-15.5 [facility] Comment on above: Order Comment: Campu s: M Performed By: #### L 200.06226 ####[facility] [id number] [place], [place] [address]Ph# [phone] IMMATR GRAN ABS 0.00 K/CU MM Normal Less than 2 [facility] [place] Comment on above: Order Comment: Campu s: M Performed By: #### L 200.30126 ####[facility] [id number] [place], [place] [address]Ph# [phone] IMMATURE GRAN % 0.3 % Normal Less than 2 [facility] [place] Comment on above: Order Comment: Campu s: M Performed By: #### L 200.65082 ####[facility] [id number] [place] [address]Hh# [phone] LYMPH ABS 1.80 K/CU MM Normal 0.9-4.4 [facility] Comment on above: Order Comment: Campu s: M Performed By: #### L 200.88981 ####[facility] [id number] [place], [place] [address]Ax# [phone] Lymphocytes/100 WBC (Bld) 19.4 % Low 20-40 [facility] Comment on above: Order Comment: Campu s: M Performed By: #### L 200.77610 ####[address] [address]Tz# [phone] MCHC (RBC) [Mass/Vol] 32.2 g/dL Normal 32.0-36.0 [facility] Comment on above: Order Comment: Campu s: M Performed By: #### L 200.78029 ####[address] [address]Wh# [phone] MCV (RBC) [Entitic vol] 85.0 fL Normal 80.0-99.0 [facility] Comment on above: Order Comment: Campu s: M Performed By: #### L 200.09270 ####[facility] [id number] [place] [address]Hz# [phone] MONO ABS 0.50 K/CU MM Normal 0.1-1.1 [facility] Comment on above: Order Comment: Campu s: M Performed By: #### L 200.89694 ####[address] [address]Wk# [phone] Monocytes/100 WBC (Bld) 5.6 % Normal 2-10 M [facility] Comment on above: Order Comment: Campu s: M Performed By: #### L 200.87068 ####[facility] [id number] [place] [address]Gh# [phone] NEUTROPHIL ABS 6.60 K/CU MM Normal 2.0-8.3 [facility] Comment on above: Order Comment: Campu s: M Performed By: #### L 200.62621 ####[facility] [id number] [place], [place] [address]Ph# [phone] Neutrophils/100 WBC (Bld) 73.0 % Normal 45-75 [facility] Comment on above: Order Comment: Campu s: M Performed By: #### L 200.49260 ####[facility] [id number] [place], [place] [address]Eb# [phone] Nucleated RBC/100 WBC (Bld) [Ratio] 0.0 % Normal Less than 1 [facility] Comment on above: Order Comment: Campu s: M Performed By: #### L .68062 ####[facility] [id number] [place] [address]Sv# [phone] Platelet mean volume (Bld) [Entitic vol] 10.4 fL Normal 9.4-12.4 [facility] Comment on above: Order Comment: Campu s: M Performed By: #### L 200.03307 ####[facility] [id number] [place] [address]Cb# [phone] PLT 222 K/CU MM Normal 150-450 [facility] [place] Comment on above: Order Comment: Campu s: M Performed By: #### L 200.41007 ####[facility] [id number] [place] [address]Ew# [phone] RBC 3.54 M/CU MM Low 3.90-5.30 [facility] Comment on above: Order Comment: Campu s: M Performed By: #### L 200.81218 ####[facility] [id number] [place] [address]Ua# [phone] WBC 9.1 K/CUMM Normal 4.5-11.0 [facility] Comment on above: Order Comment: Campu s: M Performed By: #### L .17139 ####[facility] [id number] [place] [address]Qb# [phone] GFR ESTon 04-14-2021 IF AMER 52 Normal [facility] [place] Comment on above: Order Comment: Campu s: M Performed By: #### L 500.02391, L500.00340 #### [facility] [address] [place] [address]252 IF non-AFR AMER 43 Normal [facility] Comment on above: Order Comment: Campu s: M Performed By: #### L 500.15349, L500.84092 #### [facility] [address] [place] [address] GLUCOSE METERon 04-14-2021 Glucose [Mass/Vol] 186 mg/dL High 85-125 [facility] Glucose [Mass/Vol] 256 mg/dL High 85-125 [facility] Glucose [Mass/Vol] 299 mg/dL High 85-125 [facility] Glucose [Mass/Vol] 295 mg/dL High 85-125 [facility] Glucose [Mass/Vol] 169 mg/dL High 85-125 [facility] HP.IMS.CONon 04-14-2021 CONSULTATION-H&P Normal [facility] HP.IMS.CON [facility] Patient Name: JOSELINE ELLIS [address] [place] [address] Date of : [address] [place] [address] Unit Number: [id number] CONSULTATION-HandP Patient Status: REG [facility] Attending Doctor: Rajwinder Stout MD Service Date: [...] Metformin HCl (Metformin HCl ER) 1,000 MG [id number] 1,000 MG PO BID, Ref 0 (Reported) [...] on 04/13/21 1632 (more content not included)... [facility] OTARon 04-14-2021 OT Assessment Report [facility] PHA.[facility] 04-14-2021 PHA.[facility] Patient Name: JOSELINE ELLIS [address] [place] [address] Date of : [address] [place] [address] Unit Number: [id number] Pharmacy Note Patient Status: REG [employer] Attending Doctor: Rajwinder Stout MD Service Date: [...] Karina Pendleton PharmD Verified/Reviewed by 04/14/21 1312 [facility] Pharmacy Note [facility] PROG [facility] 04-14-2021 PROG [facility] Patient Name: JOSELINE ELLIS [facility] Date of : [address] [place] [address] Unit Number: [id number] Progress Note-Hospitalist Patient Status: REG SDC Attending [...] Normal affect. Diagnostic Data: Lab 24hr (CBC/BMP [facility]) 04/14/21 1058: Whole Bld Glucose 299 [...] check iron studies (more content not included)... [facility] Progress Note-Hospitalist [facility] PROG.ORTHOon 04-14-2021 PROG.[facility] Patient Name: JOSELINE ELLIS [address] Date of : [address] [place] [address] Unit Number: [id number] Progress Note-Ortho Patient Status: REG [employer] [facility] [employer] Attending Doctor: Rajwinder Stout MD Service Date: [...] 4 04/13 2348 General Appearance Awake alert [place] x3. No apparent distress Physical Exam Her [...] Rajwinder Stout MD Verified/Reviewed by 04/14/21 1435 [facility] Progress Note-Ortho [facility] PTARon 04-14-2021 PT Assessment Report [facility] FLUOROSCOPY IN OR/PAIN MGTon 04-13-2021 FLUOROSCOPY [...] HIGGINS M.D. Signed By: PAVAN HIGGINS M.D. [facility] GLUCOSE METERon 04-13-2021 Glucose [Mass/Vol] 241 mg/dL High 85-125 [facility] Glucose [Mass/Vol] 293 mg/dL High 85-125 [facility] Glucose [Mass/Vol] 170 mg/dL High 85-125 [facility] HP.IMS.CONon 04-13-2021 CONSULTATION-H&P [facility] Patient Name: JOSELINE ELLIS [address] Date of : [address] [place] [address] Unit Number: [id number] CONSULTATION-HandP Patient Status: REG [employer] [facility] [employer] Attending Doctor: Rajwinder Stout MD Service Date: [...] Metformin HCl (Metformin HCl ER) 1,000 MG [id number] 1,000 MG PO BID, Ref 0 (Reported) [...] Action: Reviewed on 04/13/21736 by LINWOOD STAUFFER Simvastatin (Zocor) (Zocor 20MG Tablet) 20 MG [...] DOSE 04/12/21 Enter (more content not included)... [facility] OR.OPRPTon 04-13-2021 Operative Report Normal [facility] OR.OPRPT [facility] Patient Name: JOSELINE ELLIS [address] [facility] Date of : [address] [place], [place] [address] Unit Number: [id number] Operative Report Patient Status: REG [facility] Attending Doctor: Rajwinder Stout MD Service Date: 04/13/21 0951 Operative Report Procedure Date: 04/13/21 Attending Physician: Rajwinder Stout MD Procedure: Preoperative Diagnosis: Nonunion with failed [...] distal humeral fracture by Dr. Guy in [place] several weeks ago. Patient was found to [...] I discussed with the patient and the [id number] preoperatively that if the fluid looked as [...] follow cul (more content not included)... Normal [facility] PICC LINEon 04-13-2021 PICC LINE PICC LINE [...] MONTIEL MD Signed By: ELIEL MONTIEL MD [facility] PORTABLE CHESTon 04-13-2021 PORTABLE CHEST EXAMINATION: CHEST RADIOGRAPH (PORTABLE SINGLE VIEW AP) Exam Date/Time: 04/16/2021, 12:17 PM CLINICAL HISTORY: PICC line placement. MQ: XCPR_5 Comparison: None RESULT: Lines, tubes, and devices: Left-sided PICC catheter with the catheter coursing up the left neck likely within the internal jugular vein. The tip is out of the wichw-hn-clvh. Lungs and pleura: The lungs are clear without consolidation or edema. Probable trace right pleural effusion. No pneumothorax. Cardiomediastinal silhouette: Preserved cardiomediastinal silhouette. Other: Thoracic spondylosis. Postsurgical changes of ACDF of the lower cervical spine, partially visualized. IMPRESSION: Left-sided PICC with the catheter coursing cranially along the left neck, likely within the internal jugular vein, tip out of the rztoa-sv-tfft. Recommend repositioning. Trace right pleural effusion. This report was electronically signed by Caitlin Chandra MD 04/16/2021 12:31 PM Reported By: CAITLIN CHANDRA M.D. Signed By: CAITLIN CHANDRA M.D. [facility] SURG Patient: JOSELINE ELLIS SPECIMEN: [...] Phonetic and/or minor grammatical errors may exist. [facility] NAME: JOSELINE ELLIS [facility] UNIT#: [id number] LOC: [facility] Digital Cartographic Technician: Marisa Hobson M.D. [facility]#: [id number] ROOM/BED: [id number] Soocial : 54 AGE/SEX: 71/F ORD.Rajwinder Mobley MD END OF REPORT Normal [facility] BMPon 04-07-2021 Anion gap [Moles/Vol] 11 mmol/L Normal 5-16 [facility] Comment on above: Performed By: #### L 500.91024, L500.44201 ####[facility] [id number] [place], [place] [address]Lx# [phone] Calcium [Mass/Vol] 10.0 mg/dL Normal 8.5-10.5 [facility] Comment on above: Result Comment: NOTE NEW NORMAL RANGE DUE TO REAGENT CHANGE Performed By: #### L 500.16802, L500.51998 ####[facility] [id number] [place], [place] [address]Tl# [phone] Chloride [Moles/Vol] 103 mmol/L Normal 98-107 [facility] Comment on above: Performed By: #### L 500.16770, L500.06291 ####[facility] [id number] [place], [place] [address]Ij# [phone] CO2 [Moles/Vol] 23.0 mmol/L Normal 21-32 [facility] Comment on above: Performed By: #### L 500.67871, L500.43028 ####[facility] [id number] [place], [place] [address]Pt# [phone] Creatinine [Mass/Vol] 1.46 mg/dL High 0.510-0.950 [facility] Comment on above: Result Comment: Nash ents receiving either N-Acetylcysteine (NAC) or Metamizole prior to venipuncture, may have falsely depressed results. Performed By: #### L 500.52205, L500.52037 ####[facility] [id number] [place], [place] [address]Dr# [phone] Glucose [Mass/Vol] 135 mg/dL High 70-100 [facility] Comment on above: Result Comment: 70-1 00- Normal Fasting; 100-125 Impaired Fasting; greater than 126 on more than one result- Diabetes. ADA guidelines. Results may be falsely elevated after the administration of Sulfapyridine. Results may be falsely depressed after the administration of Sulfasalazine. Performed By: #### L 500.68470, L500.64717 ####[facility] [id number] [place], [place] [address]Fd# [phone] Potassium [Moles/Vol] 4.9 mmol/L Normal 3.5-5.1 [facility] Comment on above: Result Comment: Slig ht Hemolysis, Result may be affected. Performed By: #### L 500.88241, L500.90936 ####[facility] [id number] [place], [place] [address]Pu# [phone] Sodium [Moles/Vol] 137 mmol/L Normal 136-145 [facility] Comment on above: Performed By: #### L 500.17850, L500.07466 ####[facility] [id number] [place], [place] [address]Da# [phone] Urea nitrogen [Mass/Vol] 25 mg/dL Normal 7-26 [facility] Comment on above: Performed By: #### L 500.85341, L500.94432 ####[facility] [id number] [place], [place] [address]Jh# [phone] Urea nitrogen/Creatinine [Mass ratio] 17 mg/mg Normal 15-24 [facility] Comment on above: Performed By: #### L 500.70769, L500.54051 ####[facility] [id number] [place], [place] [address]Qc# [phone] CBC W/DIFFon 04-07-2021 BASO ABS 0.00 K/CU MM Normal 0-0.2 [facility] Comment on above: Performed By: #### L 770.07990 #### [facility] [address]# [phone] Basophils/100 WBC (Bld) 0.4 % Normal 0-2 M [facility] Comment on above: Performed By: #### L 770.46183 #### [facility] [address] [place] [address] EOS ABS 0.30 K/CU MM Normal 0-0.5 [facility] Comment on above: Performed By: #### L 770.48060 #### [facility] [address] [place] [address] Eosinophils/100 WBC (Bld) 3.8 % Normal 0-5 [facility] Comment on above: Performed By: #### L 770.01389 #### [facility] [address] [place] [address]# [phone] Erythrocyte distribution width (RBC) [Ratio] 15.0 % High 11-14.5 [facility] Comment on above: Performed By: #### L 770.36999 #### [facility] [address] [place] [address] Hematocrit (Bld) [Volume fraction] 34.8 % Low 35.0-47.0 [facility] Comment on above: Performed By: #### L 770.26832 #### [facility] [address] [place] [address] Hemoglobin (Bld) [Mass/Vol] 10.8 g/dL Low 11.5-15.5 [facility] Comment on above: Performed By: #### L 770.04256 #### [facility] [address] [place] [address] IMMATR GRAN ABS 0.00 K/CU MM Normal Less than 2 [facility] Comment on above: Performed By: #### L 770.35990 #### [facility] [address] [place] [address] IMMATURE GRAN % 0.3 % Normal Less than 2 [facility] Comment on above: Performed By: #### L 770.55867 #### [facility] [address] [place] [address] LYMPH ABS 1.40 K/CU MM Normal 0.9-4.4 [facility] Comment on above: Performed By: #### L 770.74888 #### [facility] [address] [place], [place] [address] Lymphocytes/100 WBC (Bld) 15.2 % Low 20-40 [facility] Comment on above: Performed By: #### L 770.84909 #### [facility] [address] [place] [address] MCHC (RBC) [Mass/Vol] 31.0 g/dL Low 32.0-36.0 [facility] Comment on above: Performed By: #### L 770.67660 #### [facility] [address] [place], [place] [address] MCV (RBC) [Entitic vol] 85.7 fL Normal 80.0-99.0 [facility] Comment on above: Performed By: #### L 770.74836 #### [facility] [address] [place], [place] [address] MONO ABS 0.60 K/CU MM Normal 0.1-1.1 [facility] Comment on above: Performed By: #### L 770.42267 #### [facility] [address] [place] [address] Monocytes/100 WBC (Bld) 6.2 % Normal 2-10 M [facility] Comment on above: Performed By: #### L 770.72307 #### [facility] [address] [place] [address] NEUTROPHIL ABS 6.60 K/CU MM Normal 2.0-8.3 [facility] Comment on above: Performed By: #### L 770.48270 #### [facility] [address] [place] [address] Neutrophils/100 WBC (Bld) 74.1 % Normal 45-75 [facility] Comment on above: Performed By: #### L 770.25484 #### [facility] [address] [place], [place] [address] Nucleated RBC/100 WBC (Bld) [Ratio] 0.0 % Normal Less than 1 [facility] Comment on above: Performed By: #### L 770.72243 #### [facility] [address] [place], [place] [address] Platelet mean volume (Bld) [Entitic vol] 10.7 fL Normal 9.4-12.4 [facility] Comment on above: Performed By: #### L 770.63214 #### [facility] [address] [place] [address] PLT 251 K/CU MM Normal 150-450 [facility] Comment on above: Performed By: #### L 770.15950 #### [facility] [address] [place], [place] [address] RBC 4.06 M/CU MM Normal 3.90-5.30 [facility] Comment on above: Performed By: #### L 770.39364 #### [facility] [address] [place] [address] WBC 8.9 K/CUMM Normal 4.5-11.0 [facility] Comment on above: Performed By: #### L 770.36978 #### [facility] [address] [place] [address] EKGon 04-07-2021 Electrocardiogram Procedure Date and Time: [...] CAMACHO M.D.FACC Jyoti DDandT: 04/07/21 1252 TDandT: [facility] PATIENT NAME: JOSELINE ELLIS [address] [place] [address] Dr. Chilel MEDICAL REC #: [id number] [place] [address] ADMIT DATE: DISCHARGE DATE: ATTENDING PHY: Rajwinder Stout MD ELECTROCARDIOGRAM REPORT CLB cc: [facility] PATIENT NAME: JOSELINE ELLIS [address] [place] [address] Dr. Chilel MEDICAL REC #: [id number] [place] [address] ADMIT DATE: DISCHARGE DATE: ATTENDING PHY: Rajwinder Stout MD ELECTROCARDIOGRAM REPORT Normal [facility] GFR ESTon 04-07-2021 IF AMER 43 Normal [facility] Comment on above: Performed By: #### L 500.63810, L500.61578 ####[facility] [id number] [place], [place] [address]Ia# [phone] IF non-AFR AMER 36 Normal [facility] Comment on above: Performed By: #### L 500.35482, L500.02554 ####[facility] [id number] [place], [place] [address]Eg# [phone] HGB A1C GLYCOHBon 04-07-2021 HbA1c (Bld) [Mass fraction] 6.6 % High 4.3-6.0 [facility] Comment on above: Performed By: #### L 770.69538 #### [facility] [address] [place] [address] MRSA PCRon 04-07-2021 MRSA PCR Positive High NEGATIVE [facility] Comment on above: Order Comment: Trung s: M : Nasopharyngeal swab Result Comment: PLEA SE NOTE: TESTING DONE BY PCR TECHNOLOGY. The SA Nasal complete MRSA assay on the [employer] GeneXpert has not been validated for use on patients under 21 years of age. All patients under 21 years of age, run on the GeneXpert will be confirmed by a Blood [place] plate, followed by an LATISHA, to confirm MRSA. Performed By: #### L [id number] #### [facility] [address] [place] [id number] SA PCR Positive High NEGATIVE [facility] Comment on above: Order Comment: Trung s: M : Nasopharyngeal swab Result Comment: PLEA SE NOTE: TESTING DONE BY PCR TECHNOLOGY. Performed By: #### L [id number] #### [facility] [address] [place] [id number] Clinical Summary: HMSPatient IDon 10-16-2019 [facility] Work Phone: Office Visit: New/Est - 1st visit with physician, Rm: 10-16-2019 NEGATED: Highlighted rowTobacco smoking status NHIS Tobacco smoking status NHIS [facility] Work Phone: Culture, urine Bacteria identified Cx Nom (U) Escherichia coli [facility] Work Phone: Lower GI hemoglobin IA Ql (S tl) Stool Occult Blood (LATISHA) Positive [facility] Work Phone: Vital Signs Date Time Vital Sign Value Performing Clinician Facility 10-09-2024 08:41-0400 Body mass index (BMI) [Ratio] 32.7 kg/m2 Dr. Bernie Reagan MD Work Phone: [facility] 10-09-2024 08:41-0400 Body temperature 96.9 [degF] Dr. Bernie Reagan MD Work Phone: [facility] 10-09-2024 08:41-0400 Diastolic blood pressure 84 mm[Hg] Dr. Bernie Reagan MD Work Phone: [facility] 10-09-2024 08:41-0400 Heart rate 113 /min Dr. Bernie Reagan MD Work Phone: [facility] 10-09-2024 08:41-0400 Respiratory rate 18 /min Dr. Bernie Reagan MD Work Phone: [facility] 10-09-2024 08:41-0400 Systolic blood pressure 132 mm[Hg] Dr. Bernie Reagan MD Work Phone: [facility] 10-02-2024 22:05-0400 Body temperature 97 [degF] Dr. Bernie Reagan MD Work Phone: [facility] 10-02-2024 22:05-0400 Diastolic blood pressure 67 mm[Hg] Dr. Bernie Reagan MD Work Phone: [facility] 10-02-2024 22:05-0400 Heart rate 68 /min Dr. Bernie Reagan MD Work Phone: [facility] 10-02-2024 22:05-0400 Respiratory rate 17 /min Dr. Bernie Reagan MD Work Phone: [facility] 10-02-2024 22:05-0400 SaO2% (BldA) [Mass fraction] 98 % Dr. Bernie Reagan MD Work Phone: [facility] 10-02-2024 22:05-0400 Systolic blood pressure 121 mm[Hg] Dr. Bernie Reagan MD Work Phone: [facility] 10-02-2024 18:17-0400 Body height 160.[address] Bernie Reagan MD Work Phone: [facility] 10-02-2024 18:17-0400 Body mass index (BMI) [Ratio] 31.1 kg/m2 Dr. Bernie Reagan MD Work Phone: [facility] 10-02-2024 18:17-0400 Body weight 79.[address] Bernie Reagan MD Work Phone: [facility] 10-02-2024 08:44-0400 Body mass index (BMI) [Ratio] 32.7 kg/m2 Dr. Bernie Reagan MD Work Phone: [facility] 10-02-2024 08:44-0400 Body temperature 97.6 [degF] Dr. Bernie Reagan MD Work Phone: [facility] 10-02-2024 08:44-0400 Diastolic blood pressure 98 mm[Hg] Dr. Bernie Reagan MD Work Phone: [facility] 10-02-2024 08:44-0400 Heart rate 126 /min Dr. Bernie Reagan MD Work Phone: [facility] 10-02-2024 08:44-0400 Respiratory rate 18 /min Dr. Bernie Reagan MD Work Phone: [facility] 10-02-2024 08:44-0400 Systolic blood pressure 157 mm[Hg] Dr. Bernie Reagan MD Work Phone: [facility] 09-24-2024 14:03-0400 Heart rate 145 /min Dr. Bernie Reagan MD Work Phone: [facility] 09-24-2024 13:17-0400 Body mass index (BMI) [Ratio] 32.1 kg/m2 Dr. Bernie Reagan MD Work Phone: [facility] 09-24-2024 13:17-0400 Body weight 79.[address] Bernie Reagan MD Work Phone: [facility] 09-24-2024 13:17-0400 Diastolic blood pressure 85 mm[Hg] Dr. Bernie Reagan MD Work Phone: [facility] 09-24-2024 13:17-0400 Respiratory rate 18 /min Dr. Bernie Reagan MD Work Phone: [facility] 09-24-2024 13:17-0400 Systolic blood pressure 119 mm[Hg] Dr. Bernie Reagan MD Work Phone: [facility] 09-19-2024 13:44-0400 Heart rate 122 /min Dr. Bernie Reagan MD Work Phone: [facility] 09-19-2024 13:13-0400 Body mass index (BMI) [Ratio] 32.7 kg/m2 Dr. Bernie Reagan MD Work Phone: [facility] 09-19-2024 13:13-0400 Body temperature 97.6 [degF] Dr. Bernie Reagan MD Work Phone: [facility] 09-19-2024 13:13-0400 Body weight 81.[address] Bernie Reaagn MD Work Phone: [facility] 09-19-2024 13:13-0400 Diastolic blood pressure 70 mm[Hg] Dr. Bernie Reagan MD Work Phone: [facility] 09-19-2024 13:13-0400 Respiratory rate 16 /min Dr. Bernie Reagan MD Work Phone: [facility] 09-19-2024 13:13-0400 SaO2% (BldA) [Mass fraction] 96 % Dr. Bernie Reagan MD Work Phone: [facility] 09-19-2024 13:13-0400 Systolic blood pressure 128 mm[Hg] Dr. Bernie Reagan MD Work Phone: [facility] 09-13-2024 00:44-0400 Body weight 81.[address] Bernie Reagan MD Work Phone: [facility] 09-11-2024 10:12-0400 Body mass index (BMI) [Ratio] 32.7 kg/m2 Dr. Bernie Reagan MD Work Phone: [facility] 09-11-2024 10:12-0400 Body temperature 96.5 [degF] Dr. Bernie Reagan MD Work Phone: [facility] 09-11-2024 10:12-0400 Diastolic blood pressure 72 mm[Hg] Dr. Bernie Reagan MD Work Phone: [facility] 09-11-2024 10:12-0400 Heart rate 140 /min Dr. Bernie Reagan MD Work Phone: [facility] 09-11-2024 10:12-0400 Respiratory rate 18 /min Dr. Bernie Reagan MD Work Phone: [facility] 09-11-2024 10:12-0400 Systolic blood pressure 103 mm[Hg] Dr. Bernie Reagan MD Work Phone: [facility] 08-28-2024 11:18-0400 Body weight 81.[address] Bernie Reagan MD Work Phone: [facility] 08-20-2024 10:37-0400 Body height 154.[address] Bernie Reagan MD Work Phone: [facility] 08-20-2024 10:37-0400 Body mass index (BMI) [Ratio] 33.8 kg/m2 Dr. Bernie Reagan MD Work Phone: [facility] 08-20-2024 10:37-0400 Body temperature 97.8 [degF] Dr. Bernie Reagan MD Work Phone: [facility] 08-20-2024 10:37-0400 Body weight 81.[address] Bernie Reagan MD Work Phone: [facility] 08-20-2024 10:37-0400 Diastolic blood pressure 78 mm[Hg] Dr. Bernie Reagan MD Work Phone: [facility] 08-20-2024 10:37-0400 Heart rate 65 /min Dr. Bernie Reagan MD Work Phone: [facility] 08-20-2024 10:37-0400 Respiratory rate 20 /min Dr. Bernie Reagan MD Work Phone: [facility] 08-20-2024 10:37-0400 SaO2% (BldA) [Mass fraction] 96 % Dr. Bernie Reagan MD Work Phone: [facility] 08-20-2024 10:37-0400 Systolic blood pressure 136 mm[Hg] Dr. Bernie Reagan MD Work Phone: [facility] 05-21-2024 13:50-0500 Body mass index (BMI) [Ratio] 34 kg/m2 Dr. Bernie Reagan MD Work Phone: [facility] 05-21-2024 13:50-0500 Body temperature 97.2 [degF] Dr. Bernie Reagan MD Work Phone: [facility] 05-21-2024 13:50-0500 Body weight 81.[address] Bernie Reagan MD Work Phone: [facility] 05-21-2024 13:50-0500 Diastolic blood pressure 88 mm[Hg] Dr. Bernie Reagan MD Work Phone: [facility] 05-21-2024 13:50-0500 Heart rate 136 /min Dr. Bernie Reagan MD Work Phone: [facility] 05-21-2024 13:50-0500 Respiratory rate 16 /min Dr. Bernie Reagan MD Work Phone: [facility] 05-21-2024 13:50-0500 SaO2% (BldA) [Mass fraction] 99 % Dr. Bernie Reagan MD Work Phone: [facility] 05-21-2024 13:50-0500 Systolic blood pressure 148 mm[Hg] Dr. Bernie Reagan MD Work Phone: [facility] 09-21-2023 07:16-0400 Body height 129.5 cm VANESSA CALDWELL EDITOR [employer] PROFESS[employer] [facility] 09-21-2023 07:16-0400 Body temperature 97.16 [degF] VANESSA CALDWELL EDITOR [employer] PROFESSOR [facility] 09-21-2023 07:16-0400 Body weight 88.4 kg VANESSA CALDWELL EDITOR [employer]ASS[employer]ATE [employer]IC PROFESSOR [facility] 09-21-2023 07:16-0400 Body weight 52.71 kg/m2 VANESSA CALDWELL EDITOR [employer]ASS[employer]ATE [employer]IC PROFESSOR [facility] 09-21-2023 07:16-0400 Diastolic Blood Pressure Non-Invasive 91 mm[Hg] VANESSA CALDWELL EDITOR [employer]ASS[employer]ATE [employer]IC PROFESSOR [facility] 09-21-2023 07:16-0400 Heart rate 81 /min VANESSA CALDWELL EDITOR [employer]ASS[employer]ATE [employer]IC PROFESSOR [facility] 09-21-2023 07:16-0400 Respiratory rate 18 /min VANESSA CALDWELL EDITOR [employer]ASS[employer]ATE [employer]IC PROFESSOR [facility] 09-21-2023 07:16-0400 Systolic Blood Pressure Non-Invasive 148 mm[Hg] VANESSA JAVI EDITOR [employer]ASS[employer]ATE [employer]IC PROFESSOR [facility] 07-20-2023 06:54-0500 Body height 129.5 cm VANESSA MODIMER EDITOR [employer]ASS[employer]ATE [employer]IC PROFESSOR [facility] 07-20-2023 06:54-0500 Body temperature 97.34 [degF] VANESSA JAVI EDITOR [employer]ASS[employer]ATE [employer]IC PROFESSOR [facility] 07-20-2023 06:54-0500 Body weight 93.6 kg VANESSA MODIMER EDITOR [employer]ASS[employer] PROFESSOR [facility] 07-20-2023 06:54-0500 Body weight 55.81 kg/m2 VANESSA JAVI EDITOR [employer]ASS[employer]ATE [employer]IC PROFESSOR [facility] 07-20-2023 06:54-0500 Diastolic Blood Pressure Non-Invasive 88 mm[Hg] VANESSA JAVI EDITOR [employer]ASS[employer]ATE [employer]IC PROFESSOR [facility] 07-20-2023 06:54-0500 Heart rate 80 /min VANESSA JAVI EDITOR [employer]ASS[employer]ATE [employer]IC PROFESSOR [facility] 07-20-2023 06:54-0500 Respiratory rate 16 /min VANESSA JAVI EDITOR [employer]ASS[employer]ATE [employer]IC PROFESSOR [facility] 07-20-2023 06:54-0500 Systolic Blood Pressure Non-Invasive 152 mm[Hg] VANESSA JAVI EDITOR [employer]ASS[employer]ATE [employer]IC PROFESSOR [facility] 07-14-2023 13:27-0500 Heart rate 60 /min ANILA ZAMBRANO MD [address] [place] [address] 07-14-2023 13:27-0500 Respiratory rate 18 /min ANILA ZAMBRANO MD [address] 07-14-2023 12:55-0500 Heart rate 58 /min ANILA ZAMBRANO MD [address] 07-14-2023 12:55-0500 Respiratory rate 18 /min ANILA ZAMBRANO MD [address] [place] [address] 07-14-2023 11:50-0500 Blood Pressure Cuff Size ANILA ZAMBRANO MD [address] [place] [address] 07-14-2023 11:50-0500 Blood Pressure Location ANILA ZAMBRANO MD [address] [place] [address] 07-14-2023 11:50-0500 Blood Pressure Method ANILA ZAMBRANO MD [address] [place] [address] 07-14-2023 11:50-0500 Body temperature 97.88 [degF] ANILA ZAMBRANO MD [address] [place] [address] 07-14-2023 11:50-0500 Diastolic Blood Pressure Non-Invasive 80 mm[Hg] ANILA ZAMBRANO MD [address] [place] [address] 07-14-2023 11:50-0500 Heart rate 55 /min ANILA ZAMBRANO MD [address] [place] [address] 07-14-2023 11:50-0500 Reason For Taking VItal Signs ANILA ZAMBRANO MD [address] 07-14-2023 11:50-0500 Respiratory rate 18 /min ANILA ZAMBRANO MD [address] 07-14-2023 11:50-0500 Systolic Blood Pressure Non-Invasive 178 mm[Hg] ANILA ZAMBRANO MD [address] [place] [address] 07-14-2023 07:35-0500 Heart rate 68 /min ANILA ZAMBRANO MD [address] [place] [address] 07-14-2023 07:35-0500 Reason For Taking VItal Signs ANILA ZAMBRANO MD [address] [place] [address] 07-14-2023 06:46-0500 Blood Pressure Cuff Size ANILA ZAMBRANO MD [address] 07-14-2023 06:46-0500 Blood Pressure Location ANILA ZAMBRANO MD [address] [place] [address] 07-14-2023 06:46-0500 Blood Pressure Method ANILA ZAMBRANO MD [address] [place] [address] 07-14-2023 06:46-0500 Body temperature 98.06 [degF] ANILA ZAMBRANO MD [address] [place] [address] 07-14-2023 06:46-0500 Diastolic Blood Pressure Non-Invasive 78 mm[Hg] ANILA ZAMBRANO MD [address] [place] [address] 07-14-2023 06:46-0500 Reason For Taking VItal Signs ANILA ZAMBRANO MD [address] [place] [address] 07-14-2023 06:46-0500 Systolic Blood Pressure Non-Invasive 182 mm[Hg] ANILA ZAMBRANO MD [address] [place] [address] 07-14-2023 04:07-0500 Body temperature 98.24 [degF] ANILA ZAMBRANO MD [address] [place] [address] 07-14-2023 04:07-0500 Diastolic Blood Pressure Non-Invasive 61 mm[Hg] ANILA ZAMBRANO MD [address] [place] [address] 07-14-2023 04:07-0500 Mean blood pressure 95 mm[Hg] ANILA ZAMBRANO MD [address] [place] [address] 07-14-2023 04:07-0500 Systolic Blood Pressure Non-Invasive 159 mm[Hg] ANILA ZAMBRANO MD [address] [place] [address] 07-14-2023 01:11-0500 Blood Pressure Cuff Size ANILA ZAMBRANO MD [address] [place] [address] 07-14-2023 01:11-0500 Blood Pressure Location ANILA ZAMBRANO MD [address] [place] [address] 07-14-2023 01:11-0500 Blood Pressure Method ANILA ZAMBRANO MD [address] [place] [address] 07-14-2023 01:11-0500 Mean blood pressure 93 mm[Hg] ANILA ZAMBRANO MD [address] [place] [address] 07-13-2023 22:30-0500 Mean blood pressure 85 mm[Hg] ANILA ZAMBRANO MD [address] [place] [address] 07-13-2023 16:39-0500 Heart rate 66 /min ANILA ZAMBRANO MD [address] [place] [address] 07-13-2023 10:33-0500 Body temperature 97.88 [degF] ANILA ZAMBRANO MD [address] [place] [address] 07-13-2023 09:18-0500 Body temperature 96.98 [degF] ANILA ZAMBRANO MD [address] [place] [address] 07-13-2023 06:35-0500 Body temperature 97.88 [degF] ANILA ZAMBRANO MD [address] [place] [address] 07-13-2023 03:22-0500 Body temperature 98.6 [degF] ANILA ZAMBRANO MD [address] [place] [address] 07-10-2023 21:37-0500 Body height 155 cm ANILA ZAMBRANO MD [address] [place] [address] 07-10-2023 21:37-0500 Body weight 89 kg ANILA ZAMBRANO MD [address] [place] [address] 07-10-2023 21:37-0500 Body weight 37.04 kg/m2 ANILA ZAMBRANO MD [address] [place] [address] 07-10-2023 18:53-0500 Diastolic Blood Pressure Non-Invasive 74 mm[Hg] DR CARLOS POLANCO MD [facility] 07-10-2023 18:53-0500 Heart rate 102 /min DR CARLOS POLANCO MD [facility] 07-10-2023 18:53-0500 Mean blood pressure 90 mm[Hg] DR CARLOS POLANCO MD [facility] 07-10-2023 18:53-0500 Reason For Taking VItal Signs DR CARLOS POLANCO MD [facility] 07-10-2023 18:53-0500 Respiratory rate 22 /min DR CARLOS POLANCO MD [facility] 07-10-2023 18:53-0500 Systolic Blood Pressure Non-Invasive 134 mm[Hg] DR CARLOS POLANCO MD [facility] 07-10-2023 18:25-0500 Heart rate 149 /min DR CARLOS POLANCO MD [facility] 07-10-2023 17:21-0500 Heart rate 111 /min DR CARLOS POLANCO MD [facility] 07-10-2023 17:21-0500 Reason For Taking VItal Signs DR CARLOS POLANCO MD [facility] 07-10-2023 17:21-0500 Respiratory rate 28 /min DR CARLOS POLANCO MD [facility] 07-10-2023 17:19-0500 Heart rate 129 /min DR CARLOS POLANCO MD [facility] 07-10-2023 16:40-0500 Diastolic Blood Pressure Non-Invasive 69 mm[Hg] DR CARLOS POLANCO MD [facility] 07-10-2023 16:40-0500 Heart rate 105 /min DR CARLOS POLANCO MD [facility] 07-10-2023 16:40-0500 Reason For Taking VItal Signs DR CARLOS POLANCO MD [facility] 07-10-2023 16:40-0500 Respiratory rate 28 /min DR CARLOS POLANCO MD [facility] 07-10-2023 16:40-0500 Systolic Blood Pressure Non-Invasive 175 mm[Hg] DR CARLOS POLANCO MD [facility] 07-10-2023 16:20-0500 Diastolic Blood Pressure Non-Invasive 87 mm[Hg] DR CARLOS POLANCO MD [facility] 07-10-2023 16:20-0500 Systolic Blood Pressure Non-Invasive 156 mm[Hg] DR CARLOS POLANCO MD [facility] 07-10-2023 14:41-0500 Heart rate 141 /min DR CARLOS POLANCO MD [facility] 07-10-2023 14:00-0500 Body temperature 98.6 [degF] DR CARLOS POLANCO MD [facility] 07-10-2023 14:00-0500 Heart rate 140 /min DR CARLOS POLANCO MD [facility] 07-10-2023 14:00-0500 Mean blood pressure 97 mm[Hg] DR CARLOS POLANCO MD [facility] 07-10-2023 13:48-0500 Heart rate 139 /min DR CARLOS POLANCO MD [facility] 07-10-2023 12:37-0500 Heart rate 136 /min DR CARLOS POLANCO MD [facility] 07-10-2023 10:15-0500 Signs/Symptoms Transfusion Reaction DR CARLOS POLANCO MD [facility] 07-10-2023 09:19-0500 Body temperature 99.5 [degF] DR CARLOS POLANCO MD [facility] 06-02-2023 12:32-0500 Body height 154.[address] Bernie Reagan Work Phone: [facility] 06-02-2023 12:32-0500 Body mass index (BMI) [Ratio] 37.5 kg/m2 Dr. Bernie Reagan Work Phone: [facility] 06-02-2023 12:32-0500 Body temperature 97.1 [degF] Dr. Bernie Reagan Work Phone: [facility] 06-02-2023 12:32-0500 Body weight 90.[address] Bernie Reagan Work Phone: [facility] 06-02-2023 12:32-0500 Diastolic blood pressure 78 mm[Hg] Dr. Bernie Reagan Work Phone: [facility] 06-02-2023 12:32-0500 Heart rate 67 /min Dr. Bernie Reagan Work Phone: [facility] 06-02-2023 12:32-0500 Respiratory rate 16 /min Dr. Bernie Reagan Work Phone: [facility] 06-02-2023 12:32-0500 SaO2% (BldA) [Mass fraction] 93 % Dr. Bernie Reagan Work Phone: [facility] 06-02-2023 12:32-0500 Systolic blood pressure 118 mm[Hg] Dr. Bernie Reagan Work Phone: [facility] 04-07-2023 16:04-0500 Diastolic blood pressure 75 mm[Hg] [facility] 04-07-2023 16:04-0500 Heart rate 69 /min [facility] 04-07-2023 16:04-0500 Respiratory rate 30 /min [facility] 04-07-2023 16:04-0500 SaO2% (BldA) [Mass fraction] 94 % [facility] 04-07-2023 16:04-0500 Systolic blood pressure 136 mm[Hg] [facility] 04-07-2023 14:37-0500 Body height 154.99 cm [facility] 04-07-2023 14:37-0500 Body mass index (BMI) [Ratio] 38 kg/m2 [facility] 04-07-2023 14:37-0500 Body temperature 98.7 [degF] [facility] 04-07-2023 14:37-0500 Body weight 91.3 kg [facility] 12-28-2022 16:34-0400 Heart rate 72 /min JULIUS ZHANGLY [address] [place] [address] 12-28-2022 16:12-0400 Body temperature 98.06 [degF] JULIUS ZHANGLY [address] [place] [address] 12-28-2022 16:12-0400 Diastolic Blood Pressure Non-Invasive 60 1 JULIUS CECILIO [employer] [address] 12-28-2022 16:12-0400 Heart rate 63 /min JULIUS CECILIO DO [address] 12-28-2022 16:12-0400 Respiratory rate 16 /min JULIUS CECILIO [address] [place] [address] 12-28-2022 16:12-0400 Systolic Blood Pressure Non-Invasive 128 1 JULIUS CECILIO DO [address] 12-28-2022 08:55-0400 Heart rate 76 /min JULIUS ZHANGLY [address] [place] [address] 12-28-2022 08:39-0400 Diastolic Blood Pressure Non-Invasive 61 1 JULIUS HERNANDES [address] [place] [address] 12-28-2022 08:39-0400 Systolic Blood Pressure Non-Invasive 122 1 JULIUS HERNANDES DO [facility] 12-28-2022 06:59-0400 Body temperature 98.42 [degF] JULIUS HERNANDES DO [facility] 12-28-2022 06:59-0400 Diastolic Blood Pressure Non-Invasive 50 1 JULIUS HERNANDES DO [employer] [facility] 12-28-2022 06:59-0400 Heart rate 56 /min JULIUS CECILIO [employer] [address] [place] [address] 12-28-2022 06:59-0400 Reason For Taking VItal Signs JULIUS HERNANDES DO [employer] [address] [place] [address] 12-28-2022 06:59-0400 Respiratory rate 18 /min JULIUS HERNANDES DO [employer] [address] [place] [address] 12-28-2022 06:59-0400 Systolic Blood Pressure Non-Invasive 111 1 JULIUS HERNANDES DO [employer] [address] [place] [address] 12-27-2022 23:07-0400 Body temperature 98.24 [degF] JULIUS HERNANDES DO [employer] [address] [place] [address] 12-27-2022 23:07-0400 Heart rate 99 /min JULIUS HERNANDES DO [employer] [facility] 12-27-2022 23:07-0400 Reason For Taking VItal Signs JULIUS HERNANDES DO [employer] [facility] 12-27-2022 23:07-0400 Respiratory rate 18 /min JULIUS HERNANDES DO [employer] [address] [place] [address] 12-27-2022 15:46-0400 Heart rate 62 /min JULIUS HERNANDES DO [employer] [address] [place] [address] 12-27-2022 15:46-0400 Reason For Taking VItal Signs JULIUS HERNANDES DO [employer] [facility] 12-27-2022 07:14-0400 Body temperature 97.7 [degF] JULIUS CECILIO DEL REAL [employer] [facility] 12-26-2022 15:17-0400 Heart rate 60 /min JULIUS CECILIO DEL REAL [facility] 12-25-2022 23:17-0400 Body temperature 96.8 [degF] JULIUS CECILIO DEL [employer] [facility] 12-25-2022 15:48-0400 Diastolic blood pressure 62 mm[Hg] JULIUS CECILIO DEL [employer] [facility] 12-25-2022 15:48-0400 Signs/Symptoms Transfusion Reaction JULIUS CECILIO DEL [employer] [facility] 12-25-2022 15:48-0400 Systolic blood pressure 104 mm[Hg] JULIUS CECILIO DEL [employer] [address] 12-25-2022 15:46-0400 Signs/Symptoms Transfusion Reaction No JULIUS CECILIO DEL [employer] [facility] 12-25-2022 15:39-0400 Signs/Symptoms Transfusion Reaction JULIUS CECILIO DEL [employer] [facility] 12-25-2022 10:25-0400 SaO2% (BldA) [Mass fraction] 94.0 % JULIUS CECILIO DEL [employer] [facility] 12-25-2022 06:45-0400 Blood Pressure Location JULIUS CECILIO [employer] [facility] 12-25-2022 06:45-0400 Blood Pressure Method JULIUS HERNANDES DO [facility] 12-25-2022 06:37-0400 Heart rate 81 /min JULIUS CECILIO DEL [employer] [facility] 12-25-2022 01:35-0400 Blood Pressure Cuff Size JULIUS CECILIO [facility] 12-25-2022 01:35-0400 Blood Pressure Location JULIUS CECILIO DO [employer] [facility] 12-25-2022 01:35-0400 Blood Pressure Method JULIUS HERNANDES DO [facility] 12-25-2022 01:35-0400 Body temperature 97.52 [degF] JULIUS CECILIO DEL [employer] [address] [place] [address] 12-24-2022 19:37-0400 Blood Pressure Cuff Size JULIUS HERNANDES DO [address] [place] [address] 12-24-2022 19:37-0400 Blood Pressure Location JULIUS HERNANDES DO [address] [place] [address] 12-24-2022 19:37-0400 Blood Pressure Method JULIUS HERNANDES DO [address] [place] [address] 12-24-2022 19:21-0400 Blood Pressure Cuff Size JULIUS HERNANDES DO [address] [place] [address] 12-23-2022 13:13-0400 Heart rate 82 /min JULIUS CECILIO DEL [employer] [address] [place] [address] 12-23-2022 13:04-0400 Body temperature 98.42 [degF] JULIUS CECILIO DEL [employer] [address] [place] [address] 12-23-2022 13:04-0400 Mean blood pressure 76 mm[Hg] JULIUS CECILIO DEL [employer] [address] [place] [address] 12-23-2022 12:30-0400 Mean blood pressure 68 mm[Hg] JULIUS CECILIO DEL REAL [address] [place] [address] 12-23-2022 12:15-0400 Mean blood pressure 80 mm[Hg] JULIUS CECILIO [employer] [address] [place] [address] 12-23-2022 11:35-0400 Respiratory Rate - Anes 0 br/min JULIUS CECILIO [employer] [address] [place] [address] 12-23-2022 11:31-0400 Body temperature 96.98 [degF] JULIUS CECILIO DEL [employer] [address] [place] [address] 12-23-2022 11:30-0400 Respiratory Rate - Anes 0 br/min JULIUS CECILIO [employer] [address] [place] [address] 12-23-2022 11:25-0400 Respiratory Rate - Anes 3 br/min JULIUS HERNANDES DO [address] [place] [address] 12-23-2022 11:10-0400 Body temperature 97.11 [degF] JULIUS HERNANDES DO [address] [place] [address] 12-23-2022 11:05-0400 Body temperature 97.02 [degF] JULIUS HERNANDES DO [address] [place] [address] 12-23-2022 11:00-0400 Body temperature 96.93 [degF] JULIUS HERNANDES DO [address] [place] [address] 12-23-2022 05:08-0400 Body height 155 cm JULIUS HERNANDES DO [address] [place] [address] 12-23-2022 05:08-0400 Body weight 89.6 kg JULIUS HERNANDES DO [address] [place] [address] 12-23-2022 05:08-0400 Body weight 37.29 kg/m2 JULIUS HERNANDES DO [address] [place] [address] 12-22-2022 20:30-0400 Body weight 89.6 kg JULIUS HERNANDES DO [address] [place] [address] 12-22-2022 19:29-0400 Diastolic Blood Pressure Non-Invasive [address] GERARD FITCH MD [facility] 12-22-2022 19:29-0400 Heart rate 76 /min DR GERARD FITCH MD [facility] 12-22-2022 19:29-0400 Respiratory rate 16 /min DR GERARD FITCH MD [facility] 12-22-2022 19:29-0400 Systolic Blood Pressure Non-Invasive [address] GERARD FITCH MD [facility] 12-22-2022 17:31-0400 Body temperature 98.06 [degF] DR GERARD FITCH MD [facility] 12-22-2022 17:31-0400 Diastolic Blood Pressure Non-Invasive [address] GERARD FITCH MD [facility] 12-22-2022 17:31-0400 Heart rate 66 /min DR GERARD FITCH MD [facility] 12-22-2022 17:31-0400 Respiratory rate 18 /min DR GERARD FITCH MD [facility] 12-22-2022 17:31-0400 Systolic Blood Pressure Non-Invasive [address] GERARD FITCH MD [facility] 12-21-2022 09:38-0400 Body temperature 97.5 [degF] Dr. Bernie Reagan Work Phone: [facility] 12-21-2022 09:38-0400 Diastolic blood pressure 67 mm[Hg] Dr. Bernie Reagan Work Phone: [facility] 12-21-2022 09:38-0400 Heart rate 59 /min Dr. Bernie Reagan Work Phone: [facility] 12-21-2022 09:38-0400 Respiratory rate 18 /min Dr. Bernie Reagan Work Phone: [facility] 12-21-2022 09:38-0400 Systolic blood pressure 157 mm[Hg] Dr. Bernie Reagan Work Phone: [facility] 11-23-2022 09:44-0400 Body mass index (BMI) [Ratio] 34.9 kg/m2 Dr. Bernie Reagan Work Phone: [facility] 11-23-2022 09:44-0400 Body temperature 97.3 [degF] Dr. Bernie Reagan Work Phone: [facility] 11-23-2022 09:44-0400 Diastolic blood pressure 59 mm[Hg] Dr. Bernie Reagan Work Phone: [facility] 11-23-2022 09:44-0400 Heart rate 59 /min Dr. Bernie Reagan Work Phone: [facility] 11-23-2022 09:44-0400 Respiratory rate 20 /min Dr. Bernie Reagan Work Phone: [facility] 11-23-2022 09:44-0400 Systolic blood pressure 148 mm[Hg] Dr. Bernie Reagan Work Phone: [facility] 11-13-2022 01:20-0400 Body weight 83.[address] Bernie Reagan Work Phone: [facility] 11-12-2022 13:47-0400 Body height 154.[address] Bernie Reagan Work Phone: [facility] 11-12-2022 13:47-0400 Body mass index (BMI) [Ratio] 34.2 kg/m2 Dr. Bernie Reagan Work Phone: [facility] 11-12-2022 13:47-0400 Body weight 82.[address] Bernie Reagan Work Phone: [facility] 11-12-2022 13:47-0400 Diastolic blood pressure 76 mm[Hg] Dr. Bernie Reagan Work Phone: [facility] 11-12-2022 13:47-0400 Heart rate 69 /min Dr. Bernie Reagan Work Phone: [facility] 11-12-2022 13:47-0400 Respiratory rate 20 /min Dr. Bernie Reagan Work Phone: [facility] 11-12-2022 13:47-0400 SaO2% (BldA) [Mass fraction] 94 % Dr. Bernie Reagan Work Phone: [facility] 11-12-2022 13:47-0400 Systolic blood pressure 118 mm[Hg] Dr. Bernie Reagan Work Phone: [facility] 11-09-2022 09:24-0400 Body mass index (BMI) [Ratio] 34.9 kg/m2 Dr. Bernie Reagan Work Phone: [facility] 11-09-2022 09:24-0400 Diastolic blood pressure 71 mm[Hg] Dr. Bernie Reagan Work Phone: [facility] 11-09-2022 09:24-0400 Heart rate 81 /min Dr. Bernie Reagan Work Phone: [facility] 11-09-2022 09:24-0400 Respiratory rate 16 /min Dr. Bernie Reagan Work Phone: [facility] 11-09-2022 09:24-0400 Systolic blood pressure 167 mm[Hg] Dr. Bernie Reagan Work Phone: [facility] 11-02-2022 11:40-0400 Body mass index (BMI) [Ratio] 34.9 kg/m2 Dr. Bernie Reagan Work Phone: [facility] 11-02-2022 11:40-0400 Body temperature 97.4 [degF] Dr. Bernie Reagan Work Phone: [facility] 11-02-2022 11:40-0400 Diastolic blood pressure 67 mm[Hg] Dr. Bernie Reagan Work Phone: [facility] 11-02-2022 11:40-0400 Heart rate 69 /min Dr. Bernie Reagan Work Phone: [facility] 11-02-2022 11:40-0400 Systolic blood pressure 142 mm[Hg] Dr. Bernie Reagan Work Phone: [facility] 11-01-2022 10:02-0400 Body height 154.[address] Bernie Reagan Work Phone: [facility] 11-01-2022 10:02-0400 Body mass index (BMI) [Ratio] 36.1 kg/m2 Dr. Bernie Reagan Work Phone: [facility] 11-01-2022 10:02-0400 Body temperature 97.2 [degF] Dr. Bernie Reagan Work Phone: [facility] 11-01-2022 10:02-0400 Body weight 86.[address] Bernie Reagan Work Phone: [facility] 11-01-2022 10:02-0400 Diastolic blood pressure 70 mm[Hg] Dr. Bernie Reagan Work Phone: [facility] 11-01-2022 10:02-0400 Heart rate 64 /min Dr. Bernie Reagan Work Phone: [facility] 11-01-2022 10:02-0400 Respiratory rate 16 /min Dr. Bernie Reagan Work Phone: [facility] 11-01-2022 10:02-0400 SaO2% (BldA) [Mass fraction] 99 % Dr. Bernie Reagan Work Phone: [facility] 11-01-2022 10:02-0400 Systolic blood pressure 112 mm[Hg] Dr. Bernie Reagan Work Phone: [facility] 10-26-2022 09:11-0400 Body weight 83.[address] Bernie Reagan Work Phone: [facility] 10-26-2022 09:11-0400 Respiratory rate 16 /min Dr. Bernie Reagan Work Phone: [facility] 09-29-2022 10:07-0400 Body height 154.[address] Bernie Reagan Work Phone: [facility] 09-29-2022 10:07-0400 Body mass index (BMI) [Ratio] 36.2 kg/m2 Dr. Bernie Reagan Work Phone: [facility] 09-29-2022 10:07-0400 Body temperature 95 [degF] Dr. Bernie Reagan Work Phone: [facility] 09-29-2022 10:07-0400 Body weight 87.[address] Bernie Reagan Work Phone: [facility] 09-29-2022 10:07-0400 Diastolic blood pressure 76 mm[Hg] Dr. Bernie Reagan Work Phone: [facility] 09-29-2022 10:07-0400 Heart rate 67 /min Dr. Bernie Reagan Work Phone: [facility] 09-29-2022 10:07-0400 Respiratory rate 18 /min Dr. Bernie Reagan Work Phone: [facility] 09-29-2022 10:07-0400 SaO2% (BldA) [Mass fraction] 99 % Dr. Bernie Reagan Work Phone: [facility] 09-29-2022 10:07-0400 Systolic blood pressure 138 mm[Hg] Dr. Bernie Reagan Work Phone: [facility] 09-20-2022 10:45-0400 Body mass index (BMI) [Ratio] 34.9 kg/m2 Dr. Bernie Reagan Work Phone: [facility] 09-20-2022 10:45-0400 Body temperature 95.7 [degF] Dr. Bernie Reagan Work Phone: [facility] 09-20-2022 10:45-0400 Diastolic blood pressure 61 mm[Hg] Dr. Bernie Reagan Work Phone: [facility] 09-20-2022 10:45-0400 Heart rate 52 /min Dr. Bernie Reagan Work Phone: [facility] 09-20-2022 10:45-0400 Respiratory rate 16 /min Dr. Bernie Reagan Work Phone: [facility] 09-20-2022 10:45-0400 Systolic blood pressure 151 mm[Hg] Dr. Bernie Reagan Work Phone: [facility] 09-15-2022 08:41-0400 Heart rate 73 /min Dr. Bernie Reagan Work Phone: [facility] 09-15-2022 08:40-0400 Body temperature 97.9 [degF] Dr. Bernie Reagan Work Phone: [facility] 09-15-2022 08:40-0400 Diastolic blood pressure 77 mm[Hg] Dr. Bernie Reagan Work Phone: [facility] 09-15-2022 08:40-0400 Respiratory rate 18 /min Dr. Bernie Reagan Work Phone: [facility] 09-15-2022 08:40-0400 SaO2% (BldA) [Mass fraction] 93 % Dr. Bernie Reagan Work Phone: [facility] 09-15-2022 08:40-0400 Systolic blood pressure 142 mm[Hg] Dr. Bernie Reagan Work Phone: [facility] 09-13-2022 14:48-0400 Body height 154.[address] Bernie Reagan Work Phone: [facility] 09-13-2022 14:48-0400 Body weight 86.[address] Bernie Reagan Work Phone: [facility] 09-13-2022 00:42-0400 Body weight 83.[address] Bernie Reagan Work Phone: [facility] 09-12-2022 21:24-0400 Diastolic blood pressure 51 mm[Hg] Dr. Bernie Reagan Work Phone: [facility] 09-12-2022 21:24-0400 Heart rate 121 /min Dr. Bernie Reagan Work Phone: [facility] 09-12-2022 21:24-0400 Systolic blood pressure 121 mm[Hg] Dr. Bernie Reagan Work Phone: [facility] 09-12-2022 20:18-0400 Body temperature 97.8 [degF] Dr. Bernie Reagan Work Phone: [facility] 09-12-2022 20:18-0400 Respiratory rate 22 /min Dr. Bernie Reagan Work Phone: [facility] 09-12-2022 20:18-0400 SaO2% (BldA) [Mass fraction] 96 % Dr. Bernie Reagan Work Phone: [facility] 09-12-2022 10:00-0400 Inhaled oxygen flow rate 3 L/min Dr. Bernie Reagan Work Phone: [facility] 09-11-2022 20:25-0400 Inhaled oxygen flow rate 3 L/min Dr. Bernie Reagan Work Phone: [facility] 09-11-2022 20:24-0400 Diastolic blood pressure 82 mm[Hg] Dr. Bernie Reagan Work Phone: [facility] 09-11-2022 20:24-0400 Heart rate 130 /min Dr. Bernie Reagan Work Phone: [facility] 09-11-2022 20:24-0400 Systolic blood pressure 112 mm[Hg] Dr. Bernie Reagan Work Phone: [facility] 09-11-2022 20:21-0400 Body temperature 97.4 [degF] Dr. Bernie Reagan Work Phone: [facility] 09-11-2022 20:21-0400 Respiratory rate 20 /min Dr. Bernie Reagan Work Phone: [facility] 09-11-2022 20:21-0400 SaO2% (BldA) [Mass fraction] 97 % Dr. Bernie Reagan Work Phone: [facility] 09-10-2022 14:20-0400 Body height 154.[address] Bernie Reagan Work Phone: [facility] 09-10-2022 14:20-0400 Body weight 86.[address] Bernie Reagan Work Phone: [facility] 09-09-2022 18:18-0400 Body mass index (BMI) [Ratio] 36.1 kg/m2 Dr. Bernie Reagan Work Phone: [facility] 09-09-2022 17:21-0400 Body temperature 97.5 [degF] Dr. Bernie Reagan Work Phone: [facility] 09-09-2022 17:21-0400 Diastolic blood pressure 66 mm[Hg] Dr. Bernie Reagan Work Phone: [facility] 09-09-2022 17:21-0400 Heart rate 71 /min Dr. Bernie Reagan Work Phone: [facility] 09-09-2022 17:21-0400 Respiratory rate 25 /min Dr. Bernie Reagan Work Phone: [facility] 09-09-2022 17:21-0400 SaO2% (BldA) [Mass fraction] 92 % Dr. Bernie Reagan Work Phone: [facility] 09-09-2022 17:21-0400 Systolic blood pressure 124 mm[Hg] Dr. Bernie Reagan Work Phone: [facility] 09-09-2022 15:00-0400 Inhaled oxygen flow rate 6 L/min Dr. Bernie Reagan Work Phone: [facility] 09-09-2022 14:31-0400 Body height 154.[address] Bernie Reagan Work Phone: [facility] 09-09-2022 14:31-0400 Body mass index (BMI) [Ratio] 34.4 kg/m2 Dr. Bernie Reagan Work Phone: [facility] 09-09-2022 14:31-0400 Body weight 82.[address] Bernie Reagan Work Phone: [facility] 09-06-2022 17:12-0400 Body temperature 98.1 [degF] Dr. Bernie Reagan Work Phone: [facility] 09-06-2022 17:12-0400 Diastolic blood pressure 73 mm[Hg] Dr. Bernie Reagan Work Phone: [facility] 09-06-2022 17:12-0400 Heart rate 75 /min Dr. Bernie Reagan Work Phone: [facility] 09-06-2022 17:12-0400 Respiratory rate 16 /min Dr. Bernie Reagan Work Phone: [facility] 09-06-2022 17:12-0400 SaO2% (BldA) [Mass fraction] 99 % Dr. Bernie Reagan Work Phone: [facility] 09-06-2022 17:12-0400 Systolic blood pressure 107 mm[Hg] Dr. Bernie Reagan Work Phone: [facility] 09-06-2022 11:48-0400 Body height 154.[address] Bernie Reagan Work Phone: [facility] 09-06-2022 11:48-0400 Body mass index (BMI) [Ratio] 34.4 kg/m2 Dr. Benrie Reagan Work Phone: [facility] 09-06-2022 11:48-0400 Body weight 82.[address] Bernie Reagan Work Phone: [facility] 09-06-2022 10:50-0400 Body mass index (BMI) [Ratio] 34.9 kg/m2 Dr. Bernie Reagan Work Phone: [facility] 09-06-2022 10:50-0400 Body temperature 96.9 [degF] Dr. Bernie Reagan Work Phone: [facility] 09-06-2022 10:50-0400 Diastolic blood pressure 80 mm[Hg] Dr. Bernie Reagan Work Phone: [facility] 09-06-2022 10:50-0400 Heart rate 120 /min Dr. Bernie Reagan Work Phone: [facility] 09-06-2022 10:50-0400 Respiratory rate 16 /min Dr. Bernie Reagan Work Phone: [facility] 09-06-2022 10:50-0400 Systolic blood pressure 128 mm[Hg] Dr. Bernie Reagan Work Phone: [facility] 09-01-2022 11:04-0400 Body mass index (BMI) [Ratio] 34.4 kg/m2 Dr. Bernie Reagan Work Phone: [facility] 09-01-2022 11:04-0400 Body temperature 96.4 [degF] Dr. Bernie Reagan Work Phone: [facility] 09-01-2022 11:04-0400 Body weight 82.[address] Bernie Reagan Work Phone: [facility] 09-01-2022 11:04-0400 Diastolic blood pressure 66 mm[Hg] Dr. Bernie Reagan Work Phone: [facility] 09-01-2022 11:04-0400 Heart rate 140 /min Dr. Bernie Reagan Work Phone: [facility] 09-01-2022 11:04-0400 Respiratory rate 18 /min Dr. Bernie Reagan Work Phone: [facility] 09-01-2022 11:04-0400 SaO2% (BldA) [Mass fraction] 97 % Dr. Bernie Reagan Work Phone: [facility] 09-01-2022 11:04-0400 Systolic blood pressure 96 mm[Hg] Dr. Bernie Reagan Work Phone: [facility] 08-16-2022 14:45-0400 Body temperature 97.6 [degF] Dr. Bernie Reagan Work Phone: [facility] 08-16-2022 14:45-0400 Diastolic blood pressure 52 mm[Hg] Dr. Bernie Reagan Work Phone: [facility] 08-16-2022 14:45-0400 Heart rate 64 /min Dr. Bernie Reagan Work Phone: [facility] 08-16-2022 14:45-0400 Respiratory rate 18 /min Dr. Bernie Reagan Work Phone: [facility] 08-16-2022 14:45-0400 SaO2% (BldA) [Mass fraction] 97 % Dr. Bernie Reagan Work Phone: [facility] 08-16-2022 14:45-0400 Systolic blood pressure 108 mm[Hg] Dr. Bernie Reagan Work Phone: [facility] 08-16-2022 08:49-0400 Inhaled oxygen flow rate 2 L/min Dr. Bernie Reagan Work Phone: [facility] 08-14-2022 02:10-0400 Body weight 83.[address] Bernie Reagan Work Phone: [facility] 08-14-2022 00:05-0400 Body temperature 98.3 [degF] Dr. Bernie Reagan Work Phone: [facility] 08-14-2022 00:05-0400 Diastolic blood pressure 69 mm[Hg] Dr. Bernie Reagan Work Phone: [facility] 08-14-2022 00:05-0400 Heart rate 80 /min Dr. Bernie Reagan Work Phone: [facility] 08-14-2022 00:05-0400 Inhaled oxygen flow rate 2 L/min Dr. Bernie Reagan Work Phone: [facility] 08-14-2022 00:05-0400 Respiratory rate 18 /min Dr. Bernie Reagan Work Phone: [facility] 08-14-2022 00:05-0400 SaO2% (BldA) [Mass fraction] 94 % Dr. Bernie Reagan Work Phone: [facility] 08-14-2022 00:05-0400 Systolic blood pressure 147 mm[Hg] Dr. Bernie Reagan Work Phone: [facility] 08-13-2022 17:37-0400 Body temperature 98 [degF] Dr. Bernie Reagan Work Phone: [facility] 08-13-2022 17:37-0400 Diastolic blood pressure 73 mm[Hg] Dr. Bernie Reagan Work Phone: [facility] 08-13-2022 17:37-0400 Heart rate 75 /min Dr. Bernie Reagan Work Phone: [facility] 08-13-2022 17:37-0400 Inhaled oxygen flow rate 2 L/min Dr. Bernie Reagan Work Phone: [facility] 08-13-2022 17:37-0400 Respiratory rate 20 /min Dr. Bernie Reagan Work Phone: [facility] 08-13-2022 17:37-0400 SaO2% (BldA) [Mass fraction] 95 % Dr. Bernie Reagan Work Phone: [facility] 08-13-2022 17:37-0400 Systolic blood pressure 152 mm[Hg] Dr. Bernie Reagan Work Phone: [facility] 08-12-2022 15:31-0400 Body height 154.[address] Bernie Reagan Work Phone: [facility] 08-12-2022 15:31-0400 Body weight 85.[address] Bernie Reagan Work Phone: [facility] 08-12-2022 10:00-0400 Diastolic blood pressure 72 mm[Hg] Dr. Bernie Reagan Work Phone: [facility] 08-12-2022 10:00-0400 Heart rate 85 /min Dr. Bernie Reagan Work Phone: [facility] 08-12-2022 10:00-0400 Inhaled oxygen flow rate 2 L/min Dr. Bernie Reagan Work Phone: [facility] 08-12-2022 10:00-0400 Respiratory rate 24 /min Dr. Bernie Reagan Work Phone: [facility] 03-30-2023 10:00-0400 SaO2% (BldA) [Mass fraction] 92 % Dr. Bernie Reagan Work Phone: [facility] 08-12-2022 10:00-0400 Systolic blood pressure 135 mm[Hg] Dr. Bernie Reagan Work Phone: [facility] 08-12-2022 08:00-0400 Body temperature 98.7 [degF] Dr. Bernie Reagan Work Phone: [facility] 08-12-2022 00:31-0400 Body height 154.[address] Bernie Reagan Work Phone: [facility] 08-12-2022 00:31-0400 Body mass index (BMI) [Ratio] 35.6 kg/m2 Dr. Bernie Reagan Work Phone: [facility] 08-12-2022 00:31-0400 Body weight 85.[address] Bernie Reagan Work Phone: [facility] 08-12-2022 00:11-0400 Diastolic blood pressure 91 mm[Hg] Dr. Bernie Reagan Work Phone: [facility] 08-12-2022 00:11-0400 Heart rate 139 /min Dr. Bernie Reagan Work Phone: [facility] 08-12-2022 00:11-0400 Respiratory rate 21 /min Dr. Bernie Reagan Work Phone: [facility] 08-12-2022 00:11-0400 SaO2% (BldA) [Mass fraction] 92 % Dr. Bernie Reagan Work Phone: [facility] 08-12-2022 00:11-0400 Systolic blood pressure 120 mm[Hg] Dr. Bernie Reagan Work Phone: [facility] 08-11-2022 23:48-0400 Body temperature 98.2 [degF] Dr. Bernie Reagan Work Phone: [facility] 08-11-2022 15:58-0400 Body mass index (BMI) [Ratio] 35.6 kg/m2 Dr. Bernie Reagan Work Phone: [facility] 08-11-2022 15:58-0400 Body weight 85.[address] Bernie Reagan Work Phone: [facility] 08-11-2022 15:37-0400 Body height 154.[address] Bernie Reagan Work Phone: [facility] 08-02-2022 14:34-0400 Body mass index (BMI) [Ratio] 34.9 kg/m2 Dr. Bernie Reagan Work Phone: [facility] 08-02-2022 14:34-0400 Body temperature 98.9 [degF] Dr. Bernie Reagan Work Phone: [facility] 08-02-2022 14:34-0400 Diastolic blood pressure 89 mm[Hg] Dr. Bernie Reagan Work Phone: [facility] 08-02-2022 14:34-0400 Heart rate 64 /min Dr. Bernie Reagan Work Phone: [facility] 08-02-2022 14:34-0400 Respiratory rate 16 /min Dr. Bernie Reagan Work Phone: [facility] 08-02-2022 14:34-0400 Systolic blood pressure 183 mm[Hg] Dr. Bernie Reagan Work Phone: [facility] 07-26-2022 15:07-0400 Body mass index (BMI) [Ratio] 34.9 kg/m2 Dr. Bernie Reagan Work Phone: [facility] 07-26-2022 15:07-0400 Body temperature 96.9 [degF] Dr. Bernie Reagan Work Phone: [facility] 07-26-2022 15:07-0400 Diastolic blood pressure 73 mm[Hg] Dr. Bernie Reagan Work Phone: [facility] 07-26-2022 15:07-0400 Heart rate 77 /min Dr. Bernie Reagan Work Phone: [facility] 07-26-2022 15:07-0400 Respiratory rate 20 /min Dr. Bernie Reagan Work Phone: [facility] 07-26-2022 15:07-0400 Systolic blood pressure 168 mm[Hg] Dr. Bernie Reagan Work Phone: [facility] 07-22-2022 10:17-0500 Body height 154.[address] Bernie Reagan Work Phone: [facility] 07-22-2022 10:17-0500 Body mass index (BMI) [Ratio] 37.4 kg/m2 Dr. Bernie Reagan Work Phone: [facility] 07-22-2022 10:17-0500 Body temperature 97.6 [degF] Dr. Bernie Reagan Work Phone: [facility] 07-22-2022 10:17-0500 Body weight 89.[address] Bernie Reagan Work Phone: [facility] 07-22-2022 10:17-0500 Diastolic blood pressure 82 mm[Hg] Dr. Bernie Reagan Work Phone: [facility] 07-22-2022 10:17-0500 Heart rate 68 /min Dr. Bernie Reagan Work Phone: [facility] 07-22-2022 10:17-0500 Respiratory rate 14 /min Dr. Bernie Reagan Work Phone: [facility] 07-22-2022 10:17-0500 SaO2% (BldA) [Mass fraction] 99 % Dr. Bernie Reagan Work Phone: [facility] 07-22-2022 10:17-0500 Systolic blood pressure 116 mm[Hg] Dr. Bernie Reagan Work Phone: [facility] 07-19-2022 13:32-0500 Body mass index (BMI) [Ratio] 34.9 kg/m2 Dr. Bernie Reagan Work Phone: [facility] 07-19-2022 13:32-0500 Body temperature 97.2 [degF] Dr. Bernie Reagan Work Phone: [facility] 07-19-2022 13:32-0500 Body weight 83.[address] Bernie Reagan Work Phone: [facility] 07-19-2022 13:32-0500 Diastolic blood pressure 67 mm[Hg] Dr. Bernie Reagan Work Phone: [facility] 07-19-2022 13:32-0500 Heart rate 16 /min Dr. Bernie Reagan Work Phone: [facility] 07-19-2022 13:32-0500 Respiratory rate 16 /min Dr. Bernie Reagan Work Phone: [facility] 07-19-2022 13:32-0500 Systolic blood pressure 154 mm[Hg] Dr. Bernie Reagan Work Phone: [facility] 07-15-2022 13:51-0500 Body temperature 97.9 [degF] Dr. Bernie Reagan Work Phone: [facility] 07-15-2022 13:51-0500 Diastolic blood pressure 58 mm[Hg] Dr. Bernie Reagan Work Phone: [facility] 07-15-2022 13:51-0500 Heart rate 55 /min Dr. Bernie Reagan Work Phone: [facility] 07-15-2022 13:51-0500 Respiratory rate 18 /min Dr. Bernie Reagan Work Phone: [facility] 07-15-2022 13:51-0500 SaO2% (BldA) [Mass fraction] 95 % Dr. Bernie Reagan Work Phone: [facility] 07-15-2022 13:51-0500 Systolic blood pressure 126 mm[Hg] Dr. Bernie Reagan Work Phone: [facility] 07-15-2022 03:41-0500 Inhaled oxygen flow rate 3 L/min Dr. Bernie Reagan Work Phone: [facility] 07-13-2022 22:10-0500 Diastolic blood pressure 69 mm[Hg] Dr. Bernie Reagan Work Phone: [facility] 07-13-2022 22:10-0500 Heart rate 60 /min Dr. Bernie Reagan Work Phone: [facility] 07-13-2022 22:10-0500 Systolic blood pressure 152 mm[Hg] Dr. Bernie Reagan Work Phone: [facility] 07-13-2022 21:59-0500 Body temperature 99 [degF] Dr. Bernie Reagan Work Phone: [facility] 07-13-2022 21:59-0500 Inhaled oxygen flow rate 3 L/min Dr. Bernie Reagan Work Phone: [facility] 07-13-2022 21:59-0500 Respiratory rate 16 /min Dr. Bernie Reagan Work Phone: [facility] 07-13-2022 21:59-0500 SaO2% (BldA) [Mass fraction] 94 % Dr. Bernie Reagan Work Phone: [facility] 07-12-2022 11:10-0500 Body height 154.[address] Bernie Reagan Work Phone: [facility] 07-12-2022 11:10-0500 Body mass index (BMI) [Ratio] 35.4 kg/m2 Dr. Bernie Reagan Work Phone: [facility] 07-12-2022 11:10-0500 Body weight 84.[address] Bernie Reagan Work Phone: [facility] 07-09-2022 18:26-0500 Diastolic blood pressure 67 mm[Hg] Dr. Bernie Reagan Work Phone: [facility] 07-09-2022 18:26-0500 Heart rate 123 /min Dr. Bernie Reagan Work Phone: [facility] 07-09-2022 18:26-0500 Respiratory rate 19 /min Dr. Bernie Reagan Work Phone: [facility] 07-09-2022 18:26-0500 SaO2% (BldA) [Mass fraction] 95 % Dr. Bernie Reagan Work Phone: [facility] 07-09-2022 18:26-0500 Systolic blood pressure 97 mm[Hg] Dr. Bernie Reagan Work Phone: [facility] 07-09-2022 17:22-0500 Body temperature 98.2 [degF] Dr. Bernie Reagan Work Phone: [facility] 07-09-2022 16:40-0500 Body mass index (BMI) [Ratio] 35.3 kg/m2 Dr. Bernie Reagan Work Phone: [facility] 07-09-2022 16:40-0500 Body weight 84.[address] Bernie Reagan Work Phone: [facility] 07-09-2022 14:28-0500 Body height 154.[address] Bernie Reagan Work Phone: [facility] 07-06-2022 17:46-0500 Heart rate 81 /min Dr. Bernie Reagan Work Phone: [facility] 07-06-2022 17:46-0500 Respiratory rate 18 /min Dr. Bernie Reagan Work Phone: [facility] 07-06-2022 17:46-0500 SaO2% (BldA) [Mass fraction] 94 % Dr. Bernie Reagan Work Phone: [facility] 07-06-2022 16:10-0500 Body mass index (BMI) [Ratio] 37 kg/m2 Dr. Bernie Reagan Work Phone: [facility] 07-06-2022 16:10-0500 Body weight [address] Bernie Reagan Work Phone: [facility] 07-06-2022 16:00-0500 Diastolic blood pressure 66 mm[Hg] Dr. Bernie Reagan Work Phone: [facility] 07-06-2022 16:00-0500 Systolic blood pressure 148 mm[Hg] Dr. Bernie Reaagn Work Phone: [facility] 07-06-2022 14:13-0500 Body temperature 97.3 [degF] Dr. Bernie Reagan Work Phone: [facility] 07-06-2022 13:46-0500 Body height 154.[address] Bernie Reagan Work Phone: [facility] 06-04-2022 11:20-0500 Body height 154.[address] Bernie Reagan Work Phone: [facility] 06-04-2022 11:20-0500 Body mass index (BMI) [Ratio] 36.8 kg/m2 Dr. Bernie Reagan Work Phone: [facility] 06-04-2022 11:20-0500 Body temperature 97 [degF] Dr. Bernie Reagan Work Phone: [facility] 06-04-2022 11:20-0500 Body weight 88.[address] Bernie Reagan Work Phone: [facility] 06-04-2022 11:20-0500 Diastolic blood pressure 68 mm[Hg] Dr. Bernie Reagan Work Phone: [facility] 06-04-2022 11:20-0500 Heart rate 58 /min Dr. Bernie Reagan Work Phone: [facility] 06-04-2022 11:20-0500 Respiratory rate 16 /min Dr. Bernie Reagan Work Phone: [facility] 06-04-2022 11:20-0500 SaO2% (BldA) [Mass fraction] 94 % Dr. Bernie Reagan Work Phone: [facility] 06-04-2022 11:20-0500 Systolic blood pressure 110 mm[Hg] Dr. Bernie Reagan Work Phone: [facility] 03-03-2022 11:15-0400 Body height 154.[address] Bernie Reagan Work Phone: [facility] Work Phone: 03-03-2022 11:15-0400 Body mass index (BMI) [Ratio] 37.3 kg/m2 Dr. Bernie Reagan Work Phone: [facility] 03-03-2022 11:15-0400 Body temperature 96.9 [degF] Dr. Bernie Reagan Work Phone: [facility] 03-03-2022 11:15-0400 Body weight 89.[address] Bernie Reagan Work Phone: [facility] 03-03-2022 11:15-0400 Diastolic blood pressure 70 mm[Hg] Dr. Bernie Reagan Work Phone: [facility] 03-03-2022 11:15-0400 Heart rate 62 /min Dr. Bernie Reagan Work Phone: [facility] 03-03-2022 11:15-0400 Respiratory rate 18 /min Dr. Bernie Reagan Work Phone: [facility] 03-03-2022 11:15-0400 SaO2% (BldA) [Mass fraction] 98 % Dr. Bernie Reagan Work Phone: [facility] 03-03-2022 11:15-0400 Systolic blood pressure 116 mm[Hg] Dr. Bernie Reagan Work Phone: [facility] 12-02-2021 10:29-0400 Body height 154.[address] Bernie Reagan Work Phone: [facility] Work Phone: 12-02-2021 10:29-0400 Body mass index (BMI) [Ratio] 36.8 kg/m2 Dr. Bernie Reagan Work Phone: [facility] Work Phone: 12-02-2021 10:29-0400 Body temperature 97.4 [degF] Dr. Bernie Reagan Work Phone: [facility] Work Phone: 12-02-2021 10:29-0400 Body weight 88.[address] Bernie Reagan Work Phone: [facility] Work Phone: 12-02-2021 10:29-0400 Diastolic blood pressure 74 mm[Hg] Dr. Bernie Reagan Work Phone: [facility] Work Phone: 12-02-2021 10:29-0400 Heart rate 70 /min Dr. Bernie Reagan Work Phone: [facility] Work Phone: 12-02-2021 10:29-0400 Respiratory rate 18 /min Dr. Bernie Reagan Work Phone: [facility] Work Phone: 12-02-2021 10:29-0400 SaO2% (BldA) [Mass fraction] 96 % Dr. Bernie Reagan Work Phone: [facility] Work Phone: 12-02-2021 10:29-0400 Systolic blood pressure 130 mm[Hg] Dr. Bernie Reagan Work Phone: [facility] Work Phone: 08-22-2021 16:52-0400 Body temperature 97.8 [degF] Dr. Bernie Reagan Work Phone: [facility] Work Phone: 08-22-2021 16:52-0400 Diastolic blood pressure 64 mm[Hg] Dr. Bernie Reagan Work Phone: [facility] Work Phone: 08-22-2021 16:52-0400 Heart rate 63 /min Dr. Bernie Reagan Work Phone: [facility] Work Phone: 08-22-2021 16:52-0400 Respiratory rate 18 /min Dr. Bernie Reagan Work Phone: [facility] Work Phone: 08-22-2021 16:52-0400 SaO2% (BldA) [Mass fraction] 97 % Dr. Bernie Reagan Work Phone: [facility] Work Phone: 08-22-2021 16:52-0400 Systolic blood pressure 139 mm[Hg] Dr. Bernie Reagan Work Phone: [facility] Work Phone: 08-22-2021 07:45-0400 Body height 154.[address] Bernie Reagan Work Phone: [facility] Work Phone: 08-22-2021 07:45-0400 Body mass index (BMI) [Ratio] 38.5 kg/m2 Dr. Bernie Reagan Work Phone: [facility] Work Phone: 08-22-2021 07:45-0400 Body weight 92.[address] Bernie Reagan Work Phone: [facility] Work Phone: 08-22-2021 06:55-0400 Inhaled oxygen flow rate 2 L/min Dr. Bernie Reagan Work Phone: [facility] Work Phone: 08-21-2021 16:26-0400 Diastolic blood pressure 76 mm[Hg] [facility] Work Phone: 08-21-2021 16:26-0400 Heart rate 63 /min [facility] Work Phone: 08-21-2021 16:26-0400 Respiratory rate 16 /min [facility] Work Phone: 08-21-2021 16:26-0400 SaO2% (BldA) [Mass fraction] 97 % [facility] Work Phone: 08-21-2021 16:26-0400 Systolic blood pressure 136 mm[Hg] [facility] Work Phone: 08-21-2021 14:30-0400 Body temperature 97.3 [degF] [facility] Work Phone: 08-21-2021 11:58-0400 Body height 160.02 cm [facility] Work Phone: 08-21-2021 11:58-0400 Body mass index (BMI) [Ratio] 37.5 kg/m2 [facility] Work Phone: 08-21-2021 11:58-0400 Body weight 96.2 kg [facility] Work Phone: NEGATED: Highlighted [id number] 15:00-0400 BMI (Body Mass Index) 38.99 kg/m2 [facility] Work Phone: NEGATED: Highlighted [id number] 15:00-0400 Body weight 94.8 kg [facility] Work Phone: NEGATED: Highlighted [id number] 15:00-0400 Body weight 95 kg [facility] Work Phone: NEGATED: Highlighted [id number] 15:00-0400 Height 156.21 cm [facility] Work Phone: NEGATED: Highlighted [id number] 15:00-0400 Height 156 cm [facility] Work Phone: Encounters Encounter Date Encounter Type Care Provider Facility Start: 10-23-2024 ambulatory Efewongbe Oleghe Facili ty:[facility] Start: 10-16-2024 ambulatory Efewongbe Oleghe Facili ty:[facility] Start: 10-15-2024 End: 10-23-2024 Evaluation and management of inpatient YAS Blanc ELVA EDITOR MAP-ASSOCIATE MUSIC PROFESSOR [facility] Start: 10-12-2024 End: 10-12-2024 Emergency department patient visit MISA BROWNE DO [facility] Start: 10-09-2024 End: 10-13-[address] Bernie Reagan MD Work Phone: [facility] Work Phone: Start: 10-09-2024 End: 10-13-2024 Dr. Fatemeh Espinosa [facility] Work Phone: Start: 10-02-2024 End: 10-02-2024 Dr. Bernie Reagan MD Work Phone: -Emergency Department Work Phone: Start: 10-02-2024 End: 10-02-2024 Emergency department patient visit Dr. Bernie Reagan MD Work Phone: [facility] Work Phone: Start: 10-02-2024 Dr. Fateemh ocampo DP -[facility] [place] Work Phone: Start: 09-24-2024 End: 09-24-2024 Mando RIDDLE -[facility] Work Phone: Start: 09-24-2024 End: 09-24-2024 ambulatory Bernie Reagan Facility:[facility] Start: 09-19-2024 End: 09-19-2024 Caitlin HALEY -[facility] Work Phone: Start: 09-19-2024 End: 09-19-2024 ambulatory Bernie Reagan Facility:[facility] Start: 09-11-2024 End: 09-12-2024 ambulatory Fatemeh Espinosa Facility:[facility] Start: 09-11-2024 End: 09-12-2024 Dr. Fatemeh Espinosa DPM -[facility] [place] Work Phone: Start: 08-20-2024 Dr. Bernie Reagan MD -[facility] Start: 08-20-2024 ambulatory Bernie Reagan Facili ty:[facility] Start: 08-20-2024 End: 08-20-2024 Dr. Bernie Reagan MD -[facility] Work Phone: Start: 08-20-2024 End: 08-20-[address] Bernie Reagan MD Work Phone: [facility] Work Phone: Start: 08-20-2024 End: 08-20-2024 ambulatory Efewongbe Oleghe Facility:[facility] Start: 05-21-2024 End: 05-21-2024 Dr. Bernie Reagan MD -[facility] Work Phone: Start: 05-21-2024 End: 05-21-2024 ambulatory Efewongbe Oleghe Facility:[facility] Start: 05-21-2024 End: 05-21-2024 ambulatory Efewhanfordbe Oleghe Facility:[facility] Start: 02-09-2024 End: 02-09-2024 ambulatory Efewongbe Oleghe Facility:[facility] Start: 01-25-2024 End: 01-25-2024 ambulatory Efewongbe Oleghe Facility:[facility] Start: 12-28-2023 End: 12-28-2023 ambulatory Efewongbe Oleghe Facility:[facility] Start: 12-26-2023 End: 12-26-2023 ambulatory Efewhanfordbe Oleghe Facility:[facility] Start: 12-07-2023 End: 12-07-2023 ambulatory Efewongbe Oleghe Facility:[facility] Start: 12-07-2023 End: 12-07-2023 ambulatory Efewhanfordbe Oleghe Facility:[facility] Start: 09-21-2023 End: 09-21-2023 AMB External Visit VANESSA CALDWELL EDITOR MAP-ASSOCIATE MUSIC PROFESSOR [facility] Start: 09-14-2023 End: 09-14-[address] Bernie Reagan Work Phone: [facility] Work Phone: Start: 09-14-2023 End: 09-14-[address] Bernie Reagan Work Phone: [facility]-Pulmonary Services/Neurology Work Phone: Start: 07-20-2023 End: 07-20-2023 AMB External Visit VANESSA Serna JAVI EDITOR MAP-[facility] Start: 07-10-2023 End: 07-14-2023 Evaluation and management of inpatient DR ELMA SANTIAGO MD Facility:A Start: 07-10-2023 End: 07-14-2023 Evaluation and management of inpatient ANILA ZAMBRANO MD [facility] Start: 07-10-2023 End: 07-10-2023 Emergency department patient visit BERNIE REAGAN MD Facility:B Start: 07-10-2023 End: 07-10-2023 Emergency department patient visit DR CARLOS POLANCO MD [facility] Start: 07-05-2023 Non-patient / Non-visit Dr. Alex Reagan Work Phone: [facility] Start: 07-05-2023 End: 07-05-[address] Bernie Reagan Work Phone: [facility] Work Phone: Start: 07-05-2023 End: 07-05-[address] Bernie Reagan Work Phone: [facility]-Cardiovascular Services Work Phone: Start: 06-02-2023 End: 06-02-[address] Bernie Reagan Work Phone: [facility] Work Phone: Start: 04-19-[address] Isma Reagan Work Phone: [facility] Start: 04-07-2023 End: 04-07-2023 Emergency department patient visit [facility] Work Phone: Start: 04-07-2023 End: 04-07-2023 [facility]-Emergency Department Work Phone: Start: 02-24-2023 [facility] Start: 02-08-2023 [facility] Start: 01-03-2023 Dr. Bernie Reagan Work Phone: [facility] Start: 12-22-2022 End: 12-28-2022 Evaluation and management of inpatient BERNIE REAGAN MD Facility:A Start: 12-22-2022 End: 12-28-2022 Evaluation and management of inpatient JULIUS HERNANDES DO [facility] Start: 12-22-2022 End: 12-22-2022 Emergency department patient visit BERNIE REAGAN MD Facility:B Start: 12-22-2022 End: 12-22-2022 Emergency department patient visit DR GERARD FITCH MD [facility] Start: 12-21-2022 End: 01-13-[address] Bernie Reagan Work Phone: [facility] Work Phone: Start: 12-21-2022 End: 01-13-2023 Dr. Bernie Reagan Work Phone: [facility] Work Phone: Start: 11-23-2022 End: 11-24-2022 Dr. Bernie Reagan Work Phone: [facility] Work Phone: Start: 11-12-2022 End: 11-12-2022 Dr. Bernie Reagan Work Phone: [facility] Work Phone: Start: 11-09-2022 End: 11-12-[address] Bernie Reagan Work Phone: [facility] Work Phone: Start: 11-09-2022 End: 11-12-2022 Dr. Bernie Reagan Work Phone: [facility] Work Phone: Start: 11-02-2022 Dr. Bernie Reagan Work Phone: [facility] Start: 11-01-2022 End: 11-01-[address] Bernei Reagan Work Phone: [facility] Work Phone: Start: 11-01-2022 End: 11-01-2022 Dr. Bernie Reagan Work Phone: [facility]-Laboratory, [place] Start: 11-01-2022 End: 11-01-2022 Dr. Bernie Reagan Work Phone: [facility] Internal Medicine Start: 10-21-2022 End: 10-21-2022 Dr. Bernie Reagan Work Phone: [facility]-Laboratory Start: 10-15-2022 Dr. Bernie Reagan Work Phone: [facility] Start: 10-14-2022 End: 10-14-[address] Bernie Reagan Work Phone: [facility] Work Phone: Start: 10-14-2022 End: 10-14-2022 Dr. Bernie Reagan Work Phone: [facility]-Laboratory Start: 09-29-2022 End: 09-29-2022 Dr. Bernie Reagan Work Phone: [facility] Medicine Start: 09-20-2022 Dr. Bernie Reagan Work Phone: [facility] Start: 09-20-2022 End: 10-13-[address] Bernie Reagan Work Phone: [facility] Work Phone: Start: 09-20-2022 End: 10-13-2022 Dr. [facility] Start: 09-15-2022 Dr. Bernie Reagan Work Phone: [facility] Start: 09-15-2022 Dr. Bernie Reagan Work Phone: [facility] Start: 09-14-2022 Dr. Bernie Reagan Work Phone: [facility] Start: 09-14-2022 Dr. Bernie Reagan Work Phone: [facility] Start: 09-13-2022 Dr. Bernie Reagan Work Phone: [facility] Start: 09-12-2022 Dr. Bernie Reagan Work Phone: [facility] Start: 09-11-2022 End: 09-11-2022 Dr. Bernie Reagan Work Phone: [facility] Start: 09-10-2022 Dr. Bernie Reagan Work Phone: [facility] Start: 09-09-2022 End: 09-15-2022 Evaluation and management of inpatient Dr. Bernie Reagan Work Phone: [facility] Work Phone: Start: 09-09-2022 End: 09-15-2022 Dr. Bernie Reagan Work Phone: [facility]-Progressive Care Unit Start: 09-06-2022 End: 09-06-2022 Emergency department patient visit Dr. Bernie Reagan Work Phone: [facility] Work Phone: Start: 09-06-2022 End: 09-06-2022 Dr. Bernie Reagan Work Phone: [facility]-Emergency Department Start: 09-06-2022 End: 09-12-2022 Dr. Bernie Reagan Work Phone: [facility]-Wound Healing Center Start: 09-01-2022 End: 09-12-[address] Bernie Reagan Work Phone: [facility] Work Phone: Start: 09-01-2022 End: 09-12-2022 Dr. Bernie Reagan Work Phone: [facility] Start: 09-01-2022 End: 09-01-2022 Dr. Bernie Reagan Work Phone: [facility] Internal Medicine Start: 08-23-2022 Dr. Bernie Reagan Work Phone: [facility] Start: 08-18-2022 End: 09-12-[address] Bernie Reagan Work Phone: [facility] Work Phone: Start: 08-18-2022 End: 09-12-2022 Dr. Bernie Reagan Work Phone: [facility]-Home Health Lab Start: 08-16-2022 Dr. Bernie Reagan Work Phone: [facility] Start: 08-15-2022 Dr. Bernie Reagan Work Phone: [facility] Start: 08-14-2022 Dr. Bernie Reagan Work Phone: [facility] Start: 08-13-2022 Dr. Bernie Reagan Work Phone: [facility] Start: 08-13-2022 Dr. Bernie Reagan Work Phone: [facility] Start: 08-12-2022 End: 08-12-2022 Dr. Bernie Reagan Work Phone: [facility] Start: 08-11-2022 End: 08-16-2022 Evaluation and management of inpatient Dr. Bernie Reagan Work Phone: [facility] Work Phone: Start: 08-11-2022 End: 08-16-2022 Dr. Bernie Reagan Work Phone: [facility]-Progressive Care Unit Start: 08-05-2022 End: 08-05-[address] Bernie Reagan Work Phone: [facility] Work Phone: Start: 08-05-2022 End: 08-05-2022 Dr. Bernie Reagan Work Phone: [facility]-Laboratory Start: 08-04-2022 End: 08-13-[address] Bernie Reagan Work Phone: [facility] Work Phone: Start: 08-04-2022 End: 08-13-2022 Dr. [facility] Start: 08-02-2022 End: 08-13-[address] Bernie Reagan Work Phone: [facility] Work Phone: Start: 08-02-2022 End: 08-13-2022 Dr. Bernie Reagan Work Phone: [facility] Start: 07-28-2022 Dr. Bernie Reagan Work Phone: [facility] Start: 07-27-2022 End: 07-27-[address] Bernie Reagan Work Phone: [facility] Work Phone: Start: 07-27-2022 End: 07-27-2022 Dr. Bernie Reagan Work Phone: [facility]-Laboratory Start: 07-26-2022 Dr. [facility] Start: 07-22-2022 End: 07-22-2022 Dr. Bernie Reagan Work Phone: [facility] Internal Medicine Start: 07-21-2022 Dr. Bernie Reagan Work Phone: [facility] Start: 07-19-2022 Dr. Bernie Reagan Work Phone: [facility] Start: 07-19-2022 Dr. Bernie Raegan [facility] Start: 07-16-2022 End: 07-16-[address] Bernie Reagan Work Phone: [facility] Work Phone: Start: 07-16-2022 End: 07-16-2022 Dr. Bernie Reagan Work Phone: [facility]-Medical Out Start: 07-15-2022 Dr. Bernie Reagan Work Phone: [facility] Start: 07-14-2022 Dr. Bernie Reagan Work Phone: [facility] Start: 07-14-2022 Dr. Bernie Reagan Work Phone: [facility] Start: 07-13-2022 Dr. Bernie Reagan Work Phone: [facility] Start: 07-12-2022 Dr. Bernie Reagan Work Phone: [facility] Start: 07-12-2022 Dr. Bernie Reagan Work Phone: [facility] Start: 07-11-2022 Dr. Bernie Reagan Work Phone: [facility] Start: 07-09-2022 End: 07-09-2022 Dr. Bernie Reagan Work Phone: [facility] Start: 07-09-2022 Non-patient / Non-visit Dr. Alex Reagan Work Phone: [facility] Start: 07-09-2022 Evaluation and management of inpatient Dr. Bernie Reagan Work Phone: [facility]-Progressive Care Unit Start: 07-09-2022 End: 07-15-2022 Dr. Bernie Reagan Work Phone: [facility] Start: 07-06-2022 End: 07-06-2022 Emergency department patient visit Dr. Bernie Reagan Work Phone: [facility]-Emergency Department Start: 07-06-2022 End: 07-06-2022 Dr. Bernie Reagan Work Phone: [facility]-Emergency Department Start: 07-03-2022 End: 07-03-[address] Bernie Reagan Work Phone: [facility] Work Phone: Start: 07-03-[address] Mary Reagan Work Phone: [facility]-Laboratory Start: 07-03-2022 End: 07-03-2022 Dr. Bernie Reagan Work Phone: [facility]-Laboratory Start: 06-04-[address] Bernie Reagan Work Phone: [facility] Start: 06-04-2022 End: 06-04-[address] Bernie Reagan Work Phone: [facility] Work Phone: Start: 06-04-2022 End: 06-04-2022 Encounter for general adult medical examination without abnormal findings Dr. Bernie Reagan Work Phone: [facility] Start: 06-04-2022 End: 06-04-[address] Bernie Reagan Work Phone: [facility] Internal Medicine Start: 06-04-2022 End: 06-04-2022 Dr. Bernie Reagan Work Phone: [facility] Medicine Start: 03-03-2022 End: 03-03-[address] Bernie Reagan Work Phone: [facility] Work Phone: Start: 03-03-2022 End: 03-03-[address] Bernie Reagan Work Phone: [facility] [place] Start: 03-03-2022 End: 03-03-[address] Bernie Reagan Work Phone: [facility] Start: 12-02-2021 End: 12-02-[address] Bernie Reagan Work Phone: [facility] [place] Start: 12-02-2021 End: 12-02-[address] Bernie Reagan Work Phone: [facility] Internal Medicine Start: 09-17-2021 End: 09-17-[address] Bernie Reaagn Work Phone: [place] [id number] Start: 09-17-2021 End: 09-17-2021 Dr. Bernie Reagan Work Phone: [place] [id number] Start: 09-10-2021 End: 09-10-[address] Bernie Lopez Phone: [place] [id number] Start: 09-10-2021 End: 09-10-2021 Dr. Bernie Reagan Work Phone: [place] [id number] Start: 09-03-2021 End: 09-03-[address] Bernie Reagan Work Phone: [place] [id number] Start: 09-03-2021 End: 09-03-2021 Dr. Bernie Reagan Work Phone: [place] [id number] Start: 08-27-2021 End: 08-27-[address] Bernie Reagan Work Phone: [place] [id number] Start: 08-27-2021 End: 08-27-2021 Dr. Bernie Reagan Work Phone: [place] [id number] Start: 08-22-2021 Non-patient / Non-visit Dr. Alex Reagan Work Phone: [facility] Start: 08-22-2021 Dr. Bernie Reagan Work Phone: [facility] Start: 08-22-2021 Non-patient / Non-visit Dr. Alex Reagan Work Phone: [facility] Start: 08-22-2021 Dr. Bernie Reagan Work Phone: [facility] Start: 08-21-2021 Non-patient / Non-visit Dr. Alex Reagan Work Phone: [facility] Start: 08-21-2021 Dr. Bernie Reagan Work Phone: [facility] Start: 08-21-2021 End: 08-22-2021 Evaluation and management of inpatient [facility]. Bernie [facility] Start: 08-21-2021 End: 08-22-2021 [facility] 3 Start: 08-13-2021 End: 08-13-[address] Bernie Reagan Work Phone: [place] [id number] Start: 08-13-2021 Registered Referred [place] [id number] Start: 08-13-2021 [place] [id number] Start: 08-06-2021 End: 08-06-[address] Bernie Reagan Work Phone: [place] [id number] Start: 08-06-2021 Registered Referred [place] [id number] Start: 08-06-2021 [place] [id number] Start: 07-30-2021 End: 07-30-2021 Departed Referred [facility] 300 Start: 07-30-2021 End: 07-30-2021 [place] [id number] Start: 07-27-2021 End: 07-27-[address] Bernie Reagan Work Phone: [place] [id number] Start: 07-27-2021 Registered Referred [place] [id number] Start: 07-27-2021 [place] [id number] Start: 07-23-2021 End: 07-23-[address] Bernie Reagan Work Phone: [place] [id number] Start: 07-23-2021 Registered Referred [place] [id number] Start: 07-23-2021 [place] [id number] Start: 07-20-2021 End: 07-20-2021 Subsequent hospital visit by physician [facility] Provider MYLENE MERCHANT Comment on above: DISPLACED TRANSCONDY FX R HUMERUS, SUBS Start: 07-18-2021 End: 07-18-2021 Departed Referred [place] [id number] Start: 07-18-2021 Registered Referred [facility] 300 Start: 07-18-2021 End: 07-18-2021 [facility] 300 Start: 07-15-2021 End: 07-15-[address] Bernie Reagan Work Phone: [place] [id number] Start: 07-15-2021 Registered Referred [place] [id number] Start: 07-15-2021 [place] [id number] Start: 07-14-2021 End: 07-14-[address] Bernie Reagan Work Phone: [facility] 300 Start: 07-14-2021 Registered Referred [facility] 300 Start: 07-14-2021 [facility] 300 Start: 07-07-2021 End: 07-07-[address] Bernie Reagan Work Phone: [facility] 300 Start: 07-07-2021 Registered Referred [facility] 300 Start: 07-07-2021 [facility] 300 Start: 06-30-2021 Registered Referred [facility] 300 Start: 06-30-2021 [facility] 300 Start: 06-23-2021 Registered Referred [facility] 300 Start: 06-23-2021 [facility] 300 Start: 06-19-2021 Registered Referred [facility] 300 Start: 06-19-2021 [facility] 300 Start: 06-16-2021 Registered Referred [facility] 300 Start: 06-16-2021 [facility] 300 Start: 06-09-2021 Registered Referred [facility] 300 Start: 06-09-2021 [facility] 300 Start: 06-02-2021 Registered Referred [facility] 300 Start: 06-02-2021 [facility] 300 Start: 05-26-2021 Registered Referred [facility] 300 Start: 05-26-2021 [facility] 300 Start: 05-19-2021 Registered Referred [facility] 300 Start: 05-19-2021 [facility] 300 Start: 05-12-2021 Registered Referred [place] [id number] Start: 05-12-2021 [place] [id number] Start: 05-05-2021 Registered Referred [place] [id number] Start: 05-05-2021 [place] [id number] Start: 04-28-2021 Registered Referred [place] [id number] Start: 04-28-2021 [place] [id number] Start: 02-23-2021 Patient encounter status [facility] Start: 10-16-2019 End: 10-16-2019 Patient encounter procedure Mando Claire MD Work Phone: [facility] Work Phone: Procedures Date Procedure Procedure Detail [...] Work Phone: Start: 07-13-2023 Cardioversion VANESSA THOMPSON [employer] Comment on above: Sucessful Start: 07-11-2023 Echocardiography PERI CALDWELL [employer] Comment on above: Summary: 1. Left ventricle: [...] Activity Detail Author Start: 10-02-2024 End: 10-02-2024 [facility] Start: 08-20-2024 Patient referral [facility] Work Phone: Start: 04-07-2023 [facility] Start: 04-07-2023 End: 04-07-2023 [facility] Start: 10-15-2022 Patient referral [facility] Work Phone: Start: 09-29-2022 Patient referral [facility] Work Phone: Start: 09-29-2022 Evaluation of diagnostic study results [facility] Start: 09-21-2022 Blood chemistry [facility] Start: 09-20-2022 Blood chemistry [facility] Start: 09-19-2022 Blood chemistry [facility] Start: 09-18-2022 Blood chemistry [facility] Start: 09-17-2022 Blood chemistry [facility] Start: 09-15-2022 Referral to service [facility] Start: 09-15-2022 Patient discharge [facility] Start: 09-14-2022 Referral to system software developer [facility] Start: 09-13-2022 [facility] Start: 09-13-2022 Blood chemistry [facility] Start: 09-13-2022 Plain chest X-ray [facility] Start: 09-13-2022 Prothrombin time [facility] Start: 09-12-2022 Blood chemistry [facility] Start: 09-09-2022 Following clinical pathway protocol [facility] Start: 09-09-2022 Assessment of risk of venous thromboembolism [facility] Start: 09-09-2022 Cardiac monitoring [facility] Start: 09-09-2022 Care regimes management [facility] Start: 09-09-2022 Catheterization of vein [facility] Start: 09-09-2022 Continuous pulse oximetry [facility] Start: 09-09-2022 Inhalation therapy procedure [facility] Start: 09-09-2022 Insertion of catheter into peripheral vein [facility] Start: 09-09-2022 Measuring intake and output [facility] Start: 09-09-2022 Notification of physician [facility] Start: 09-09-2022 Oxygen therapy [facility] Start: 09-09-2022 Physiotherapy of chest [facility] Start: 09-09-2022 Providing care according to standard [facility] Start: 09-09-2022 Provision of activity privileges [facility] Start: 09-09-2022 Referral to occupational therapist [facility] Start: 09-09-2022 Referral to service [facility] Start: 09-09-2022 [facility] Start: 09-09-2022 Streptococcus pneumoniae antigen assay [facility] Start: 09-09-2022 Viral nucleic acid assay [facility] Start: 09-09-2022 Bacteria identified in Sputum by Culture [facility] Start: 09-09-2022 Verification routine [facility] Start: 09-09-2022 Admission procedure [facility] Start: 09-09-2022 CT angiography of chest with contrast [facility] Start: 09-09-2022 End: 09-09-2022 [facility] Start: 09-09-2022 Taking nasal swab [facility] Start: 09-09-2022 End: 09-09-2022 Blood culture [facility] Start: 09-09-2022 Patient referral to dietitian [facility] Start: 09-06-2022 [facility] Start: 09-06-2022 Emergency department visit high/urgent severity [facility] Start: 09-06-2022 Ther proph/dx njx iv push single/1st sbst/drug [facility] Start: 08-16-2022 Referral to service [facility] Start: 08-16-2022 Patient discharge [facility] Start: 08-15-2022 Prothrombin time [facility] Start: 08-14-2022 Prothrombin time [facility] Start: 08-13-2022 End: 08-13-2022 Care planning and problem solving actions [facility] Start: 08-13-2022 Referral to system software developer [facility] Start: 08-13-2022 Referral to occupational therapist [facility] Start: 08-13-2022 Referral to service [facility] Start: 08-13-2022 Prothrombin time [facility] Start: 08-12-2022 Verification routine [facility] Start: 08-12-2022 Care planning and problem solving actions [facility] Start: 08-12-2022 Wound care [facility] Start: 08-12-2022 Consultation for treatment [facility] Start: 08-12-2022 Contact precautions [facility] Start: 08-12-2022 Following clinical pathway protocol [facility] Start: 08-12-2022 Peripherally inserted central catheter care [facility] Start: 08-12-2022 Assessment of risk of venous thromboembolism [facility] Start: 08-12-2022 Care regimes management [facility] Start: 08-12-2022 Insertion of catheter into peripheral vein [facility] Start: 08-12-2022 Measuring intake and output [facility] Start: 08-12-2022 Notification of physician [facility] Start: 08-12-2022 Oxygen therapy [facility] Start: 08-12-2022 Providing care according to standard [facility] Start: 08-12-2022 Provision of activity privileges [facility] Start: 08-12-2022 Referral to service [facility] Start: 08-12-2022 [facility] Start: 08-12-2022 Patient referral to dietitian [facility] Start: 08-11-2022 Verification routine [facility] Start: 08-11-2022 Admission procedure [facility] Start: 08-11-2022 End: 08-12-2022 [facility] Start: 07-22-2022 Patient referral [facility] Work Phone: Start: 07-17-2022 Prothrombin time [facility] Start: 07-16-2022 Iv infusion therapy/prophylaxis /dx 1st to 1 hr [facility] Start: 07-16-2022 Therapeutic prophylactic/dx injection subq/im [facility] Start: 07-16-2022 Prothrombin time [facility] Start: 07-15-2022 Patient discharge [facility] Start: 07-15-2022 Prothrombin time [facility] Start: 07-15-2022 [facility] Start: 07-14-2022 Prothrombin time [facility] Start: 07-13-2022 Consultation for treatment [facility] Start: 07-13-2022 Peripherally inserted central catheter care [facility] Start: 07-13-2022 Blood culture [facility] Start: 07-13-2022 End: 07-13-2022 Wound care [facility] Start: 07-13-2022 Application of intermittent pneumatic compression device [facility] Start: 07-12-2022 Referral to service [facility] Start: 07-12-2022 Prothrombin time [facility] Start: 07-12-2022 [facility] Start: 07-11-2022 Blood chemistry [facility] Start: 07-11-2022 Prothrombin time [facility] Start: 07-10-2022 Consultation [facility] Start: 07-10-2022 Blood chemistry [facility] Start: 07-10-2022 Prothrombin time [facility] Start: 07-10-2022 Thyroid stimulating hormone measurement [facility] Start: 07-09-2022 Following clinical pathway protocol [facility] Start: 07-09-2022 Consultation [facility] Start: 07-09-2022 Ambulation without limitation [facility] Start: 07-09-2022 Assessment of risk of venous thromboembolism [facility] Start: 07-09-2022 Care regimes management [facility] Start: 07-09-2022 Elevation of affected extremity [facility] Start: 07-09-2022 Incentive spirometry [facility] Start: 07-09-2022 Insertion of catheter into peripheral vein [facility] Start: 07-09-2022 Measuring intake and output [facility] Start: 07-09-2022 Notification of physician [facility] Start: 07-09-2022 Oxygen therapy [facility] Start: 07-09-2022 Providing care according to standard [facility] Start: 07-09-2022 Referral to occupational therapist [facility] Start: 07-09-2022 Referral to service [facility] Start: 07-09-2022 Wound care [facility] Start: 07-09-2022 [facility] Start: 07-09-2022 Care planning and problem solving actions [facility] Start: 07-09-2022 Verification routine [facility] Start: 07-09-2022 Admission procedure [facility] Start: 07-09-2022 MRI of upper limb Upper Ext/No Jt/ wo [facility] Start: 07-09-2022 End: 07-09-2022 Blood culture [facility] Start: 07-06-2022 End: 07-06-2022 Blood culture [facility] Start: 07-06-2022 [facility] Start: 07-06-2022 Emergency department visit low/moder severity [facility] Start: 04-25-2022 Colonoscopy COLONOSCOPY [facility] Start: 04-25-2022 COLORECTAL CANCER SCREENING COLORECTAL CANCER SCREENING [facility] Start: 08-22-2021 Patient discharge [facility] Work Phone: Start: 08-21-2021 Notification of physician [facility] Work Phone: Start: 08-21-2021 End: 08-21-2021 Catheterization of vein [facility] Work Phone: Start: 08-21-2021 Following clinical pathway protocol [facility] Work Phone: Start: 08-21-2021 Application of intermittent pneumatic compression device [facility] Work Phone: Start: 08-21-2021 Assessment of risk of venous thromboembolism [facility] Work Phone: Start: 08-21-2021 Insertion of catheter into peripheral vein [facility] Work Phone: Start: 08-21-2021 Oxygen therapy [facility] Work Phone: Start: 08-21-2021 Providing care according to standard [facility] Work Phone: Start: 08-21-2021 Referral to gastroenterology service [facility] Work Phone: Start: 08-21-2021 Referral to occupational therapist [facility] Work Phone: Start: 08-21-2021 Referral to service [facility] Work Phone: Start: 08-21-2021 End: 08-21-2021 [facility] Work Phone: Start: 08-21-2021 Admission procedure [facility] Work Phone: Start: 05-16-2021 ADVANCE DIRECTIVE DISCUSSION ADVANCE DIRECTIVE DISCUSSION [facility] Start: 02-27-2021 Urine microalbumin profile DTAP,TDAP,TD (2 - Td or Tdap) [facility] Start: 01-14-2021 Influenza vaccination INFLUENZA (#1) [facility] Start: 12-08-2019 ANNUAL PCP TEAM CHRONIC DISEASE VISIT ANNUAL PCP TEAM CHRONIC DISEASE VISIT [facility] Start: 12-04-2019 End: 12-04-2019 Appointment Appointment [facility] Work Phone: Start: 11-02-2019 End: 11-02-2019 Appointment Appointment [facility] Work Phone: Start: 10-22-2019 End: 10-22-2019 Appointment Appointment [facility] Work Phone: Start: 10-16-2019 End: 10-16-2019 Appointment Appointment [facility] Work Phone: Start: 10-16-2019 End: 10-16-2019 Radex hand minimum 3 views XR HAND 3+ VWS-RT [facility] Work Phone: Start: 09-29-2019 Hepatitis B surface antibody level LDL CHOLESTEROL [facility] Start: 06-29-2019 Mammography MAMMOGRAM [facility] Start: 05-18-2019 Hepatitis B screening URINE ALBUMIN:CREATININE RATIO [facility] Start: 03-31-2019 Hemoglobin A1c/Hemoglobin.total in Blood HBA1C [facility] Start: 02-17-2019 Hepatitis C antibody, confirmatory test DILATED RETINAL EXAM [facility] Start: 04-28-2017 PNEUMOVAX AGE 65 AND OVER WITH 5YR LOOKBACK (#1) PNEUMOVAX AGE 65 AND OVER WITH 5YR LOOKBACK (#1) [facility] Start: 02-08-2017 3 comp foot exam completed DIABETIC FOOT EXAM [facility] Start: 01-19-2017 BONE DENSITY BONE DENSITY [facility] Start: 01-19-2002 SHINGRIX VACCINE (1 of 2) SHINGRIX VACCINE (1 of 2) [facility] Start: 01-19-1997 COLOGUARD (FIT-DNA) COLOGUARD (FIT-DNA) [facility] Start: 01-19-[address] COLONOGRAPHY [facility] Start: 01-19-1997 FECAL OCCULT BLOOD FECAL OCCULT BLOOD [facility] Start: 01-19-1997 SIGMOIDOSCOPY SIGMOIDOSCOPY [facility] Start: 01-19-1970 BP CONTROLLED (<130/80) BP CONTROLLED (<130/80) [facility] Start: 01-19-1957 COVID-19 VACCINE (1) COVID-19 VACCINE (1) [facility] Anion gap measurement [facility] Anion gap measurement [facility] Anion gap measurement [facility] Anion gap measurement [facility] Bacteria identified in Blood by Culture Blood Culture [facility] Bacteria identified in Unspecified specimen by Anaerobe culture [facility] BUN/Creatinine ratio [facility] BUN/Creatinine ratio [facility] BUN/Creatinine ratio [facility] BUN/Creatinine ratio [facility] Calcium [Mass/volume ] in Serum or Plasma [facility] Calcium [Mass/volume ] in Serum or Plasma [facility] Calcium [Mass/volume ] in Serum or Plasma [facility] Calcium [Mass/volume ] in Serum or Plasma [facility] Carbon dioxide, tota l [Moles/volume] in Serum or Plasma [facility] Carbon dioxide, tota l [Moles/volume] in Serum or Plasma [facility] Carbon dioxide, tota l [Moles/volume] in Serum or Plasma [facility] Carbon dioxide, tota l [Moles/volume] in Serum or Plasma [facility] Chloride [Moles/volu me] in Serum or Plasma [facility] Chloride [Moles/volu me] in Serum or Plasma [facility] Chloride [Moles/volu me] in Serum or Plasma [facility] Chloride [Moles/volu me] in Serum or Plasma [facility] Creatinine [Moles/vo lume] in Serum or Plasma [facility] Creatinine [Moles/vo lume] in Serum or Plasma [facility] Creatinine [Moles/vo lume] in Serum or Plasma [facility] Creatinine [Moles/vo lume] in Serum or Plasma [facility] DXA Bone [Mass/Area] Bone density [facility] DXA Bone [Mass/Area] Bone density [facility] DXA Bone [Mass/Area] Bone density [facility] Glucose [Mass/volume ] in Serum or Plasma [facility] Glucose [Mass/volume ] in Serum or Plasma [facility] Glucose [Mass/volume ] in Serum or Plasma [facility] Glucose [Mass/volume ] in Serum or Plasma [facility] Hematocrit [Volume Fraction] of Blood [facility] Hematocrit [Volume Fraction] of Blood [facility] Hemoglobin [Mass/vol ume] in Blood [facility] Hemoglobin [Mass/vol ume] in Blood [facility] Hemoglobin A1c/Hemoglobin.total in Blood [facility] INR in Blood by Coagulation assay [facility] INR in Blood by Coagulation assay [facility] INR in Blood by Coagulation assay [facility] INR in Blood by Coagulation assay [facility] INR in Blood by Coagulation assay [facility] INR in Blood by Coagulation assay [facility] INR in Blood by Coagulation assay [facility] INR in Blood by Coagulation assay [facility] INR in Blood by Coagulation assay [facility] INR in Blood by Coagulation assay [facility] INR in Blood by Coagulation assay [facility] Lactic acid measurement [facility] Legionella pneumophi la Ag [Presence] in Urine [facility] Leukocytes [#/volume ] in Blood [facility] Leukocytes [#/volume ] in Blood [facility] Mean corpuscular hemoglobin concentration determination [facility] Mean corpuscular hemoglobin concentration determination [facility] Mean corpuscular hemoglobin determination [facility] Mean corpuscular hemoglobin determination [facility] Measurement of renal function [facility] Measurement of renal function [facility] Measurement of renal function [facility] Measurement of renal function [facility] MG Breast - bilatera l Screening [facility] Microbial culture, routine [facility] Microscopic observat ion [Identifier] in Unspecified specimen by Gram stain Gram Stain [facility] Microscopic urinalysis [facility] Neutrophil count [facility] Neutrophil count [facility] Neutrophil percent differential count [facility] Neutrophil percent differential count [facility] Organism count, microscopic method [facility] Patient Education [facility] Work Phone: Patient referral [facility] Work Phone: Platelets [#/volume] in Blood [facility] Platelets [#/volume] in Blood [facility] Potassium [Moles/vol ume] in Serum or Plasma [facility] Potassium [Moles/vol ume] in Serum or Plasma [facility] Potassium [Moles/vol ume] in Serum or Plasma [facility] Potassium [Moles/vol ume] in Serum or Plasma [facility] Prealbumin [Mass/vol ume] in Serum or Plasma [facility] Prothrombin time [facility] Red blood cell count [facility] Red blood cell count [facility] Red cell distributio n width determination [facility] Red cell distributio n width determination [facility] SARS-CoV-2 (COVID-19 ) Ag [Presence] in Respiratory specimen by Rapid immunoassay [facility] Sodium [Moles/volume ] in Serum or Plasma [facility] Sodium [Moles/volume ] in Serum or Plasma [facility] Sodium [Moles/volume ] in Serum or Plasma [facility] Sodium [Moles/volume ] in Serum or Plasma [facility] Troponin T.cardiac [Mass/volume] in Serum or Plasma by High sensitivity method [facility] Urea nitrogen [Mass/volume] in Serum or Plasma [facility] Urea nitrogen [Mass/volume] in Serum or Plasma [facility] Urea nitrogen [Mass/volume] in Serum or Plasma [facility] Urea nitrogen [Mass/volume] in Serum or Plasma [facility] Urinalysis, blood, qualitative [facility] Urine culture [facility] Urine culture [facility] Urine microalbumin/creatinine ratio measurement [facility] Urine microscopy: epithelial cells [facility] Vancomycin [Mass/vol ume] in Serum or Plasma --trough [facility] Vancomycin [Mass/vol ume] in Serum or Plasma --trough [facility] Vancomycin [Mass/vol ume] in Serum or Plasma --trough [facility] Vancomycin [Mass/vol ume] in Serum or Plasma --trough [facility] White blood cell count [facility] Wound Culture Wound Culture [facility] XR Chest Single view [facility] Immunizations Immunization Date Immunization Notes Care Provider Fa kazadrienne 10-12-2024 tetanus toxoid, redu beena diphtheria toxoid, and acellular pertussis vaccine, adsorbed MISA PAVAN DO [facility] 03-11-2022 Covid Pfizer Bivalen t Booster Dr. Bernie Reagan Work Phone: [facility] 03-03-2022 influenza virus vacc ine, unspecified formulation DR CARLOS POLANCO MD [facility] 03-03-2022 influenza, injectabl e, quadrivalent, preservative free [facility] 03-03-2022 influenza, seasonal, injectable Dr. Bernie Reagan Work Phone: [facility] 03-10-2021 [facility] Comment on above: Result Comment: 2023: [id number] 08-11-2020 [facility] ([facility] Comment on above: Result Comment: 2023: [id number] 07-14-2020 [facility] Comment on above: Result Comment: 2023: [id number] 03-04-2020 influenza virus vacc ine, unspecified formulation DR CARLOS POLANCO MD [facility] 03-04-2020 influenza, injectabl e, quadrivalent, preservative free [facility] 03-04-2020 influenza, seasonal, injectable [facility] 03-04-2020 pneumococcal conjuga te vaccine, 13 valent [facility] 03-04-2020 pneumococcal vaccine , unspecified formulation [facility] Work Phone: 03-04-2020 Fluad Quad (65yr up)(PF) 60 mcg (15 mcg x 4)/0.5mL IM syringe (flu vac [facility] Work Phone: 03-04-2020 [facility] Work Phone: 03-19-2019 Fluad 2019-20 65yr up(PF)45 mcg(15 mcgx3)/0.5 mL intramuscular syringe (flu vac [facility] Work Phone: 03-19-2019 [facility] Work Phone: 02-13-2013 influenza virus vacc ine, unspecified formulation [facility] Provider [facility] 04-28-2012 pneumococcal polysaccharide vaccine, 23 valent [facility] Provider [facility] 03-09-2012 influenza virus vacc ine, unspecified formulation [facility] Provider [facility] 02-27-2011 tetanus toxoid, redu beena diphtheria toxoid, and acellular pertussis vaccine, adsorbed [facility] Provider [facility] Work Phone: Payers Date Payer Category Payer Medicare [id number] 2024 Medicare [id number] 2023 Self-pay [id number] 2023 Private Health Insurance 2fe [id number] 2022 Medicare [id number] 2022 Medicare [id number] 2022 Unknown [id number] 2019 Private Health Insurance CIGNA C IGNA MEDICARE SUPPLEMENT [id number] 2019-Present [phone] [address] [place] [address] Indemnity [id number] 2017 Medicare MEDICARE MEDICAR E A AND B [id number] 2017-Present [phone] [address] [address] [place] [address] Medicare [id number] 1952 Unknown [id number] 2.16.840.1.932839.3.579.2 .627 1952 Unknown [id number] 2.16.840.1.071650.3.579.2 .627 1952 Unknown [id number] 2.16.840.1.309929.3.579.2 .627 1952 Unknown [id number] 2..840.1.302668.3.579.2 .62 1950 Unknown [id number] 2.840.1.774283.3.579.2 .627 1950 Unknown [id number] 2.840.1.793909.3.579.2 .627 Medicare [id number] Private Health Insurance [id number] Unknown [id number] Unknown [id number] Unknown [id number] 2.16.840.1.626264.3.579.2 .462 Unknown [id number] 2.16.840.1.825029.3.579.2 .462 Unknown [id number] 2.16.840.1.687693.3.579.2 .462 Unknown [id number] 2.16.840.1.671641.3.579.2 .462 Unknown [id number] 2.16.840.1.853165.3.579.2 .462 Unknown [id number] 2.16.840.1.580858.3.579.2 .462 Unknown [id number] 2.16.840.1.601470.3.579.2 .462 Unknown [id number] 2.16.840.1.118735.3.579.2 .462 Unknown [id number] 2.16.840.1.164994.3.579.2 .462 Unknown [id number] 2.16.840.1.228691.3.579.2 .462 Unknown [id number] 2.16.840.1.866901.3.579.2 .462 Unknown [id number] 2.16.840.1.144947.3.579.2 .462 Unknown [id number] 2.16.840.1.976410.3.579.2 .462 Unknown [id number] 2.16.840.1.143553.3.579.2 .462 Unknown [id number] 2.16.840.1.718630.3.579.2 .462 Unknown [id number] 2.16.840.1.093416.3.579.2 .462 Unknown [id number] 2.16.840.1.298203.3.579.2 .462 Unknown [id number] 2.16.840.1.233394.3.579.2 .462 Social History Date Type Detail Facility Start: 07-20-2023 End: 10-02-2024 Tobacco smoking status NEIS Never smoked tobacco [facility] Start: 12-07-2018 Alcohol intake Not Asked [facility] Start: 1950 Sex Assigned At Not on file [facility] Start: 03-02-2021 End: 06-02-2023 Tobacco smoking status RUST Unknown if ever smoked [facility] Start: 10-10-2018 None [facility] Start: 10-10-2018 Alone [facility] Start: 10-16-2018 Non-smoker [facility] Start: 1950 Sex Assigned At Female [facility] Tobacco smoking status [facility] Start: 01-05-2024 Tobacco smoking status NHIS Ex-smoker (finding) [facility] Start: 10-18-2018 End: 08-23-2024 Sex Female (finding) [facility] NEGATED: Highlighted rowStart: 10-16-2019 End: 10-16-2019 Assertion Never smoker [facility] Work Phone: Medical Equipment Procedure Code Equipment Code Equipment Origin al Text Equipment Identifier Dates ORIF, fracture, humerus ([id number]) ()[id number] FDA Start: 02-26-2021 ORIF, fracture, humerus ([id number]) ()[id number] 1 FDA Start: 02-26-2021 ORIF, fracture, humerus ([id number]) ()[id number] 9 FDA Start: 02-26-2021 ORIF, fracture, humerus ([id number]) ()[id number] 4 FDA Start: 02-26-2021 ORIF, fracture, humerus ([id number]) ()[id number] 0 FDA Start: 02-26-2021 ORIF, fracture, humerus ([id number]) ()[id number] 3 FDA Start: 02-26-2021 ORIF, fracture, humerus ([id number]) ()[id number] 0 FDA Start: 02-26-2021 ORIF, fracture, humerus ([id number]) ()[id number] 7 FDA Start: 02-26-2021 ORIF, fracture, humerus ([id number]) ()[id number] 3 FDA Start: 02-26-2021 ORIF, fracture, humerus ([id number]) ()[id number] 5 FDA Start: 02-26-2021 ORIF, fracture, humerus ([id number]) ()[id number] 7 FDA Start: 02-26-2021 ORIF, fracture, humerus ([id number]) ()[id number] 0 FDA Start: 02-26-2021 Test blood sugar [...] Result Facility 07-14-2023 Functional Status Nursing Man [facility] 07-14-2023 Functional Status Identified as high risk, Room check performed, Chair alert pad on [facility] 07-14-2023 Functional Status Man [facility] 07-14-2023 Functional Status Man [facility] 07-14-2023 Functional Status Supervised Man [facility] 07-14-2023 Functional Status Man [facility] 07-13-2023 Functional Status Man [facility] 07-13-2023 Functional Status 3pm-11pm Man [facility] 07-13-2023 Functional Status Man [facility] 07-12-2023 Functional Status Front wheeled walker [facility] 07-12-2023 Functional Status Supervised Man [facility] 07-12-2023 Functional Status Man [facility] 07-11-2023 Functional Status Man [facility] 07-10-2023 Functional Status Sensory Deficits None [facility] 07-10-2023 Functional [facility]-10[facility]23 Functional Status Man [facility] 07-10-2023 [facility] 12-28-2022 Functional Status Room check performed [facility] 12-27-2022 Functional Status Man [facility] 12-27-2022 Functional Status Man [facility] 12-27-2022 Functional Status Nurse Safety C hecks q2hrs Performed 3pm-7pm [facility] 12-27-2022 Functional Status Man [facility] 12-27-2022 Functional Status Man [facility] 12-26-2022 Functional Status Man [facility] 12-26-2022 Functional Status Man [facility] 12-26-2022 Functional Status Repositioned b ack, Refused to be turned [facility] 12-26-2022 Functional Status Man [facility] 12-26-2022 Functional Status Man [facility] 12-26-2022 Functional Status Roller walker [facility] 12-25-2022 Functional Status Bed Bath One assist [facility] 12-25-2022 Functional Status Man [facility] 12-25-2022 Functional Status Man [facility] 12-24-2022 Functional Status Activity Pema tance Greater than two assist [facility] 12-24-2022 Functional Status Two assist Man [facility] 12-24-2022 Functional Status Man [facility] 12-24-2022 Functional Status Total Man [facility] 12-23-2022 Functional Status ice on Man [facility] 12-23-2022 Functional Status Man [facility] 12-23-2022 Functional Status NPO Status Maintained [facility] 12-23-2022 [facility] 12-22-2022 Functional Status Standard Safet y ID band on, Call device within reach, Bed in low position, Wheels locked, Upper/Half-Length side-rails up, Bedside Cart Locked, Safety level maintained [facility] 09-15-2022 Functional status Chair [facility] Work Phone: 09-12-2022 Functional status Chair [facility] Work Phone: 09-11-2022 Functional status Ambulates [facility] Work Phone: 08-16-2022 Functional status Ambulates [facility] Work Phone: 08-13-2022 Functional status Chair [facility] Work Phone: 08-12-2022 Functional status Ambulates [facility] Work Phone: 07-15-2022 Functional status Ambulates [facility] Work Phone: 07-13-2022 Functional status Ambulates [facility] Work Phone: 08-22-2021 Functional status Ambulates [facility] Work Phone: Mental Status Date Assessment Result Facility 10-02-2024 Cognitive function [facility]: 07-14-2023 Mental Status Orientation Oriented x 4 [facility] 07-14-2023 Mental Status [facility] 07-14-2023 Mental Status [facility] 07-14-2023 Mental Status [facility] 07-10-2023 Mental Status Orientation Not oriented to place, Not oriented to time, Not oriented to situation [facility] 07-10-[address] [facility] 07-10-[address] [facility] 04-07-2023 Cognitive function Voice/Name [facility] Work Phone: 12-28-2022 Mental Status Oriented x 4 [facility] 12-28-2022 Mental Status [facility] 12-27-2022 Mental Status [facility] 12-22-2022 Mental Status Orientation Oriented x 4 [facility] 09-15-2022 Cognitive function Voice/Name [facility] Work Phone: 09-12-2022 Cognitive function Voice/Name [facility] Work Phone: 09-11-2022 Cognitive function Voice/Name [facility] Work Phone: 09-06-2022 Cognitive function Voice/Name [facility] Work Phone: 08-16-2022 Cognitive function Voice/Name [facility] Work Phone: 08-13-2022 Cognitive function Voice/Name [facility] Work Phone: 08-12-2022 Cognitive function Voice/Name [facility] Work Phone: 08-11-2022 Cognitive function Voice/Name [facility] Work Phone: 07-15-2022 Cognitive function Voice/Name [facility] Work Phone: 07-13-2022 Cognitive function Voice/Name [facility] Work Phone: 07-09-2022 Cognitive function Level Of Cons ciousness Awake;Alert;Appropriate [facility] Work Phone: 08-22-2021 Cognitive function Voice/Name [facility] Work Phone: 08-22-2021 Cognitive function Appropriate;Cooperativ e [facility] Work Phone: Clinical Notes 02-21-2009 to 10-23-2024 Note Date & Type Note Facility 10-23-2024 Hospital Discharg e instructions Patient Education 10/23/2024 11:21:09 Weakness, Ziun-qj-Getw Weakness Weakness is a lack of strength. [...] about working with a physical therapist or strainer tender to help you get stronger. General instructions Take ytkb-lep-hjtomxw and prescription medicines only as told by [...] 04/14/2009 Document Revised: 12/06/2018 Document Reviewed: 12/06/2018 [employer] Patient Education iHigh. Follow Up Care 10/15/2024 17:02:42 With:Follow up with primary care provider Address:Unknown When: Unknown [facility] 10-23-2024 Note Discharge Instructions Thank you for allowing [facility] to assist you with your healthcare needs. The following is important discharge information regarding your hospital visit. Your Care Team [facility]PATIENT [facility] Your Diagnosis (HFpEF) heart failure [...] Once a day Unchanged sodium chloride nasal (Newtown Saline 0.65% nasal gel) See instructions one [...] about working with a physical therapist or strainer tender to help you get stronger. General instructions Take vlzm-pec-vdfslrm and prescription medicines only as told by [...] 04/14/2009 Document Revised: 12/06/2018 Document Reviewed: 12/06/2018 [employer] Patient Education 2020 [employer]. Additional Information VACCINATE! IT SAVES LIVES! Members of the community who have not yet received the COVID-19 vaccine and would like to receive it can visit one of [facility] vaccine clinics. There are many vaccine clinic locations within the [facility] [address]. For locations and available times, please visit [email or web address].o hio.gov/. It is important to note that some COVID mobile vaccine clinics are held outdoors and may be canceled in rainy or stormy conditions. To learn more about pediatric vaccinations (ages 5-11), we invite you to visit the [facility] webpage. https://www.[facility].org/p ages/4738-Ipslb-Ajcsbpqpmls-Freq milstp-Cgnbt-Bzdflneyg.html To learn more about the COVID-19 vaccine, we invite you to visit the CDC website for a list of frequently asked questions.https://www.cdc.gov/co ronavirus/2019-ncov/vaccines/faq .html [facility] Patient Portal Access Instructions: Stay connected with your healthcare team and access your personal medical information anytime with the [facility] Patient Portal. Please follow the directions below to create your [facility] account: 1.Access the email account you provided upon registration to the hospital/physician office.2.Look for an invitation email from [facility].3.Open the email and access the invitation link: Accept Invitation to [facility].4.Fill in the required cunha to create your account. To access your account, visit [employer]. Click the blue button labeled Access Patient [...] you will allow to register on the [facility] Patient Portal for access to your information. You can also access the [facility] on the [facility] alfonzo. Simply click on Patient Portal and then log into your account. If you would like to receive a full copy of your medical records, please contact the [facility] Medical Records Department by calling [phone], Tuesday through Tuesday between 8 a.m. and [...] Call your local pharmacy or go to http://[employer]Nano Think/4K2Qh6a to find one close to you.3.Make use of household items: Use cat litter or old coffee grounds to dispose medications if other options are not available. Mix your drugs with these household products, seal them in an airtight container and throw it into the garbage. Call [facility]: [phone] to be sure your drugs can be [...] CHART COPY. Signatures Patient Education Materials Weakness, Kybz-wo-Imlj Medication Leaflets My discharge plan and instructions have been reviewed and explained to me and I,JOSELINE ELLIS understand my current condition and have read and understand these discharge instructions. I have received a written copy of the plan/instructions. If I have questions, I am aware that I should contact my doctor. 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 Patient was originally accepted at [facility]. They started pre-CERT and then [...] Right second toe wound patient follows with [facility]. She gets hydrogel C applied [...] by AZ BELTRAN on 10/22/2024 02:10 PM [facility] 10-21-2024 Note Date of Service 10/21/2024 Chief Complaint Fall Subjective Remains stable. No acute issues. States that knee pain is slowly improving. Patient was originally accepted at [facility]. They started pre-CERT and then [...] awaiting pre-CERT. Patient was originally accepted at [facility]. They started pre-CERT and then [...] by AZ BELTRAN on 10/21/2024 11:26 AM [facility] 10-20-2024 Note Date of Service 10/20/2024 Chief Complaint Weakness, falls Subjective 74-year-old female with past medical history significant for HTN, paroxysmal atrial fibrillation anticoagulated with apixaban, HFpEF, type 2 diabetes mellitus, LEIGH ANN on CPAP, CKD stage III. Patient presented to [facility] emergency department 10/15/2024 with weakness, falls, inability [...] awaiting pre-CERT. Patient was originally accepted at [facility]. They started pre-CERT and then [...] by AZ BELTRAN on 10/20/2024 10:24 AM [facility] 10-18-2024 Pastoral care Progress note Pastoral Care Note Entered On: 10/18/2024 9:39 EDT Performed On: 10/18/2024 9:35 EDT by Jose Durbin Pastoral Care Type of Pastoral Visit : Initial visit Spiritual Care Visit Initiated by : Staffing Coordinator Spiritual Care Reason for Visit : General Spiritual Assessment : Faithful, Spiritual, not Denominational Spiritual Care Emotional Assessment : Sad, Pessimistic, [...] one dog left; pt is connected to [employer] and was active in a breakfast group however she has given up driving now so faces more isolation; explored what might be options and other avenues for support; pt declined further interventions Pastoral Care Visit Length : 15 minute(s) Jose Durbin - 10/18/2024 9:35 EDT Digitally Signed by Jose Durbin on 10/18/2024 09:35 AM [facility] 10-18-2024 Note . MICRO - Microbiology PROCEDURE: [...] Locations *1: This test was performed at: [facility], [address] [place] [address], [id number] , [facility] 10-16-2024 Evaluation + Plan note Extrac luis alfredo from: Title:History and Physical Author:YAS STEVENSON APRN-ASSOCIATE MUSIC PROFESSOR Date:10/16/24 1. Acute kidney injury Acute, mild. [...] Profile 10/22/23 * Complete Metabolic Panel 10/22/23 [facility] 06-03-2025 Pastoral care Progress note Pastoral Care Note Entered On: 10/16/2024 8:53 EDT Performed On: 10/16/2024 8:52 EDT by Jose Durbin Pastoral Care Type of Pastoral Visit : Initial visit Spiritual Care Visit Initiated by : Staffing Coordinator Spiritual Care Reason for Visit : General Spiritual Assessment : Other: Spiritual Care Emotional Assessment : Other: Spiritual Plan of Care : Spiritual Care Declined, No Further Action Pastoral Care Comments : patient is in isolation room but is offered a visit and support from this hat body sorter if she desires it; pt responds that she is okay and declines a visit at this time Pastoral Care Visit Length : 5 minute(s) Jose Durbin - 10/16/2024 8:52 EDT Digitally Signed by Jose Durbin on 10/16/2024 08:52 AM [facility]06-03-2025 Note Date of Service 10/16/2024 Chief Complaint sent by visiting nurse for 3 stay to be [facility] to [facility] due to weakness and inability to care for herself at home. Pt has had frequent falls lately. History of Present Illness Patient is a 74-year-old female, who follows with Dr. Bernie Reagan with a past medical history significant for LEIGH ANN on CPAP, hypertension, paroxysmal atrial fibrillation, HFpEF and type 2 diabetesmellitus, presented to [facility] emergency department with the chief complaint [...] ofNS, 15 grams kayexalate PO, 1 tab Arroyo PO and 5 mg lopressor IV in [...] 10 mg = 1 tab(s), Oral, qDay Newtown Saline 0.65% nasal gel See Instructions Biofreeze [...] ROSARIO PENA DO on 10/20/2024 08:08 AM [facility]06-02-2025 Note* Exam Date Time Procedure Performing Provider Status 10/15/24 5:20 PM EKG [ED AOH] - CV JOSEPH LACY MD; A [facility] (Verified) ECG Final Report Atrial flutter Borderline low voltage, extremity leads Minimal ST depression, diffuse leads Baseline wander in lead(s) V6 Electronic Signature: JOSEPH LACY MD 10/15/2024 17:37:57 [facility]05-30-2025 Hospital Discharge instructions Patient Education 10/12/2024 03:40:52 [...] to change your dose. You may use pzek-amg-eznhhng pain medicine to control pain, unless another [...] in behavior or speech Convulsion, or seizure 4811-1057 [employer]. [address] [place] [address]. All rights reserved. This information is not intended as a substitute for professional medical care. Always follow yourhealthcare professional's instructions. Follow Up Care 10/12/2024 02:23:59 With:NADJA DALE DO Address: [address] [place] [address]- [phone] When:3-7 days With:Go to emergency room if symptoms worsen Address:Unknown When:2-4 days With:BERNIE REAGAN MD Address: [address] [place] [address] [place] [address]- [phone] When:2-4 days [facility] 05-30-2025 Note Discharge Instructions Thank you for allowing [facility] to assist you with your healthcare needs. [...] 3-7 days Where:[address] [place] [address] [phone] Follow Up with Go to emergency room if symptoms worsen When:Within 2-4 days Follow Up with BERNIE REAGAN MD When:Within 2-4 days Where:[address] [place] [address]- [phone] Allergies Monopril pioglitazone Immunizations This Visit Given Vaccine Datetetanus/diphth/pertuss (Tdap) adult/adol 10/12/2024 Medications Please ask your primary doctor or pharmacist before taking any other medication not listed, including over the counter drugs, herbal medications, vitamins and or supplements as they may interact withyour home medications. What How Much When Why Instructions Last Dose New acetaminophen-hydrocodone (Arroyo 325- 5 mg oral tablet) 1 tab(s) [...] needed for constipation Unchanged sodium chloride nasal ([place] Saline 0.65% nasal gel) See instructions one [...] to change your dose. You may use sbtn-pme-qcvqfvc pain medicine to control pain, unless another [...] in behavior or speech Convulsion, or seizure [id number] [employer]. [address] [place] [address]. All rights reserved. This information is not [...] are many vaccine clinic locations within the [facility] [address]. For locations and available times, please visit www.gettheshot.coronavirus.[place].gov/. It is important to note that some COVID mobile vaccine clinics are held outdoors and may be canceled in rainy or stormy conditions. To learn more about pediatric vaccinations (ages 5-11), we invite you to visit the [facility] webpage. https://www.[facility].org/pages/9849-Zslcb-Hwiqlxypqzy-Hkziuzrycg-Odsan-Xot stions.htmlTo learn more about the COVID-19 vaccine, we invite you to visit the CDC website for a list of frequently asked questions. https://www.cdc.gov/coronavirus/2019-ncov/vaccines/faq.html [facility] Patient Portal Access Instructions: Stay connected with your healthcare team and access your personal medical information anytime with the [facility] Patient Portal. If you would like a full copy of your medical records please contact the [facility] Medical Records Department Tuesday through Tuesday between 8a.m. and 4:30p.m. Please follow the directions below to access the portal: 1.Access the email account you provided upon registration to the [facility].2.Look for an invitation email from [facility].3.Open the email and access the invitation link: Accept Invitation to [employer]4.Fill in the required cunha to create your account. Sign into www.[employer] with your username and password that you [...] you will allow to register on the [facility] Patient Portal for access to your information. You can also access the [facility] [facility] Patient Portal on the [employer]. Simply click on Health Records under [email or web address] and then click on the [employer] logo. HOW TO SAFELY DISPOSE OF PRESCRIPTION [...] Call your local pharmacy or go to http://[employer]Nano Think/1V4Ke4d to find one close to you.3.Make use of household items: Use cat litter or old coffee grounds to dispose medications if other options arenot available. Mix your drugs with these household products, seal them in an airtight container andthrow it into the garbage. Call [facility]: [phone] to be sure your drugs can be [...] aware that I should contact my doctor. 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 Signature: Date/Time: Relationship to Patient: Witness Name/Signature: Date/Time: [facility]05-30-2025 Note* Exam Date Time Procedure Performing Provider Status 10/12/24 3:18 AM XR Knee 3 Views Right CHIP CROCKETT MD; Auth (Verified) [id number] ORIGINAL EXAMINATION: THREE XRAY VIEWS OF THE [...] Sign Date: 10/12/2024 3:41:38 AM Ordering Provider: [facility]05-30-2025 Note* Exam Date Time Procedure Performing Provider Status 10/12/24 3:18 AM XR Chest 1 View CHIP CROCKETT MD; Auth (Verified) [id number] ORIGINAL EXAMINATION: ONE XRAY VIEW OF THE [...] Sign Date: 10/12/2024 3:39:21 AM Ordering Provider: [facility]05-30-2025 Note* Exam Date Time Procedure Performing Provider Status 10/12/24 3:[address] Spine Cervical w/o Contrast CHIP CROCKETT MD; Auth (Verified) [id number] ORIGINAL EXAMINATION: CT OF THE CERVICAL SPINE [...] Sign Date: 10/12/2024 3:31:14 AM Ordering Provider: [facility]05-30-2025 Note* Exam Date Time Procedure Performing Provider Status 10/12/24 3:[address] Maxillofacial w/o Contrast CHIP CROCKETT MD; Auth (Verified) [id number] ORIGINAL EXAMINATION: CT OF THE HEAD WITHOUT [...] Sign Date: 10/12/2024 3:10:45 AM Ordering Provider: [facility]05-30-2025 Note* Exam Date Time Procedure Performing Provider Status 10/12/24 2:[address] Head or Brain w/o Contrast CHIP CROCKETT MD; Auth (Verified) [id number] ORIGINAL EXAMINATION: CT OF THE HEAD WITHOUT [...] Sign Date: 10/12/2024 3:10:45 AM Ordering Provider: [facility]05-27-2025 Progress note Author Fatemeh Espinosa [facility] Note Date/Time October 09, 2024 9:34a m [facility] [address] [place] [address] Progress Note - Wound Care 10/09/24 0933 MR#: [id number] Acct: [id number] Name: JOSELINE ELLIS Rep #:[id number] 2 : 1950 74 From: Fatemeh Espinosa [...] Date Recorded By Document 09/18/24 09:15 RB [id number] 09/18/24 09:18 RB Document 09/25/24 09:10 KW [id number] 09/25/24 09:19 KW Document 10/02/24 08:44 KW [id number] 10/02/24 08:49 KW Document 10/09/24 08:41 ML [id number] 10/09/24 08:46 ML 09/18/24 09/25/24 10/02/24 09:15 09:10 08:44 WC - Today's Visit Information Type of service Follow-up Visit Follow-up Visit Follow-up Visit (Physician/ASSOCIATE MUSIC PROFESSOR (Physician/ASSOCIATE MUSIC PROFESSOR (Physician/ASSOCIATE MUSIC PROFESSOR ) ) ) Arrival Mode Ambulatory, Ambulatory, [...] Visit Information Type of service Follow-up Visit (Physician/ASSOCIATE MUSIC PROFESSOR ) Arrival Mode Ambulatory, Walker Transfer Assistance [...] Date Recorded By Document 09/18/24 09:15 RB [id number] 09/18/24 09:18 RB Document 09/25/24 09:10 KW [id number] 09/25/24 09:19 KW Document 10/02/24 08:44 KW [id number] 10/02/24 08:49 KW Document 10/09/24 08:41 ML [id number] 10/09/24 08:46 ML 09/18/24 09/25/24 10/02/24 09:15 [...] (67-100%) None Present (0 %) -Granulation Quality [place] -Slough/Fibrin Yes -Necrosis Amt Small (1-33%) Large [...] Amt Medium (34-66%) Medium (34-66%) -Granulation Quality [place] Red -Slough/Fibrin Yes -Necrosis Amt Small (1-33%) [...] Amt Medium (34-66%) Large (67-100%) -Granulation Quality [place] Red -Slough/Fibrin Yes -Necrosis Amt Small (1-33%) [...] (34-66%) Large (67-100%) Large (67-100%) -Granulation Quality [place] Red Red -Slough/Fibrin Yes -Necrosis Amt Small [...] Attached -Granulation Amt Small (1-33%) -Granulation Quality [place] -Slough/Fibrin -Necrosis Amt Small (1-33%) -Necrotic Tissue [...] Date Recorded By Document 09/18/24 09:30 ALBERTO [id number] 09/18/24 09:35 ALBERTO Document 09/25/24 09:40 ALBERTO [id number] 09/25/24 09:45 Document 10/02/24 09:08 [id number] 10/02/24 09:09 Document 10/09/24 08:51 [id number] 10/09/24 08:53 09/18/24 09/25/24 10/02/24 09:30 09:40 [...] Date Recorded By Document 09/18/24 09:56 KW [id number] 09/18/24 09:57 KW Edit Result 09/18/24 09:56 KW (1) [id number] 09/20/24 12:12 KW Document 09/25/24 10:09 RB [id number] 09/25/24 10:10 RB Document 10/02/24 09:38 RB [id number] 10/02/24 09:39 RB Document 10/09/24 09:03 ML [id number] 10/09/24 09:04 ML (1) LEFT LEG - [...] mellitus with diabetic polyneuropathy QUALIFIERS: Diabetes mellitus halfway insulin use: with press tender long goods use Qualified Code(s): E11.42 - Type 2 diabetes mellitus with diabetic polyneuropathy; Z79.4 - 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 of insulin PLAN: Exam performed. [...] Cosigner Signature (if applicable): CC: ~ Signed [facility] Work Phone: 1(733) 715-167005-20-2025 Radiology Diagnostic study [facility]05-20-2025 Progress note Author Fatemeh Espinosa [facility] Note Date/Time October 02, 2024 9:13a m [facility] [address] [place] [address] Progress Note - Wound Care 10/02/24 0910 MR#: [id number] Acct: [id number] Name: JOSELINE ELLIS Rep #:[id number] 1 : 1950 74 From: Fatemeh Espinosa [...] of time. 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 The patient has been using silver cell and Alberto wraps. The patient also experiences swelling and edema in her lower extremities. She sleeps in a bed at night. 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 [...] Date Recorded By Document 09/18/24 09:15 RB [id number] 09/18/24 09:18 RB Document 09/25/24 09:10 KW [id number] 09/25/24 09:19 KW Document 10/02/24 08:44 KW [id number] 10/02/24 08:49 KW 09/18/24 09/25/24 10/02/24 09:15 09:10 08:44 - Today's Visit Information Type of service Follow-up Visit Follow-up Visit Follow-up Visit (Physician/ASSOCIATE MUSIC PROFESSOR (Physician/ASSOCIATE MUSIC PROFESSOR (Physician/ASSOCIATE MUSIC PROFESSOR ) ) ) Arrival Mode Ambulatory, Ambulatory, [...] Date Recorded By Document 09/18/24 09:15 RB [id number] 09/18/24 09:18 RB Document 09/25/24 09:10 KW [id number] 09/25/24 09:19 KW Document 10/02/24 08:44 KW [id number] 10/02/24 08:49 KW 09/18/24 09/25/24 10/02/24 09:15 [...] (67-100%) None Present (0 %) -Granulation Quality [place] -Slough/Fibrin Yes -Necrosis Amt Small (1-33%) Large (67-100%) -Necrotic Tissue Type Adherent Slough Adherent Slough -Structure Exposed N/A -Texture (Jessica-wound Skin Appearance) Assessed Assessed,Callus Assessed -Moisture (Jessica-wound Skin Appearance) Assessed Assessed Assessed -Color (Ejssica-wound Skin Appearance) Assessed Assessed Assessed -Temperature (Jessica-wound [...] Amt Medium (34-66%) Medium (34-66%) -Granulation Quality [place] Red -Slough/Fibrin Yes -Necrosis Amt Small (1-33%) [...] Amt Medium (34-66%) Large (67-100%) -Granulation Quality [place] Red -Slough/Fibrin Yes -Necrosis Amt Small (1-33%) [...] (34-66%) Large (67-100%) Large (67-100%) -Granulation Quality [place] Red Red -Slough/Fibrin Yes -Necrosis Amt Small [...] Recorded Date Recorded By Document 09/18/24 09:30 [id number] 09/18/24 09:35 Document 09/25/24 09:40 JF [id number] 09/25/24 09:45 Document 10/02/24 09:08 JF [id number] 10/02/24 09:09 09/18/24 09/25/24 10/02/24 09:30 09:40 [...] Date Recorded By Document 09/18/24 09:56 KW [id number] 09/18/24 09:57 KW Edit Result 09/18/24 09:56 KW (1) [id number] 09/20/24 12:12 KW Document 09/25/24 10:09 RB [id number] 09/25/24 10:10 RB (1) LEFT LEG - [...] mellitus with diabetic polyneuropathy QUALIFIERS: Diabetes mellitus halfway insulin use: with press tender long goods use Qualified Code(s): E11.42 - Type 2 diabetes mellitus with diabetic polyneuropathy; Z79.4 - 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 of insulin PLAN: Exam performed. [...] Cosigner Signature (if applicable): CC: ~ Signed [facility] Work Phone: 1(677) 146-179005-13-2025 Progress note Author Fatemeh Espinosa [facility] Note Date/Time October 13, 2024 11:59 pm [facility] [address] [place] [address] Progress Note - Wound Care 09/25/24 0946 MR#: [id number] Acct: [id number] Name: JOSELINE ELLIS Rep #:[id number] 1 : 1950 74 From: Fatemeh Espinosa [...] of time. 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 The patient has been using silver cell and Alberto wraps. The patient also experiences swelling and edema in her lower extremities. She sleeps in a bed at night. 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 [...] Date Recorded By Document 09/18/24 09:15 RB [id number] 09/18/24 09:18 RB Document 09/25/24 09:10 KW [id number] 09/25/24 09:19 KW 09/18/24 09/25/24 09:15 09:10 - Today's Visit Information Type of service Follow-up Visit Follow-up Visit (Physician/ASSOCIATE MUSIC PROFESSOR (Physician/ASSOCIATE MUSIC PROFESSOR ) ) Arrival Mode Ambulatory, Ambulatory, Walker [...] Date Recorded By Document 09/18/24 09:15 RB [id number] 09/18/24 09:18 RB Document 09/25/24 09:10 KW [id number] 09/25/24 09:19 KW 09/18/24 09/25/24 09:15 09:10 [...] Amt Medium (34-66%) Large (67-100%) -Granulation Quality [place] Red -Slough/Fibrin Yes -Necrosis Amt Small (1-33%) [...] (67-100%) None Present (0 %) -Granulation Quality [place] -Slough/Fibrin Yes -Necrosis Amt Small (1-33%) Large [...] Amt Medium (34-66%) Large (67-100%) -Granulation Quality [place] Red -Slough/Fibrin Yes -Necrosis Amt Small (1-33%) -Necrotic Tissue Type Adherent Slough -Structure Exposed N/A -Texture (Jessica-wound Skin Appearance) Assessed Assessed,Callus -Moisture (Jessica-wound Skin Appearance) Assessed Assessed -Color (Jessica-wound Skin Appearance) Assessed Assessed -Temperature (Jessica-wound Skin No Abnormality No Abnormality Appearance) (Pt Warm) (Pt Warm) -Tenderness on Palpation (Jessiac-wound No No Skin Appearance) -Ulcer Cleansing Wound [...] Amt Medium (34-66%) Medium (34-66%) -Granulation Quality [place] Red -Slough/Fibrin Yes -Necrosis Amt Small (1-33%) [...] Recorded Date Recorded By Document 09/18/24 09:30 [id number] 09/18/24 09:35 Document 09/25/24 09:40 [id number] 09/25/24 09:45 09/18/24 09/25/24 09:30 09:40 Wound [...] Date Recorded By Document 09/18/24 09:56 KW [id number] 09/18/24 09:57 KW Edit Result 09/18/24 09:56 KW (1) [id number] 09/20/24 12:12 KW (1) LEFT LEG - [...] mellitus with diabetic polyneuropathy QUALIFIERS: Diabetes mellitus halfway insulin use: with press tender long goods use Qualified Code(s): E11.42 - Type 2 diabetes mellitus with diabetic polyneuropathy; Z79.4 - shelter (current) use of insulin PLAN: Exam performed. [...] Cosigner Signature (if applicable): CC: ~ Signed [facility] Work Phone: 1(378) 952-806405-06-2025 Progress note Author Fatemeh Espinosa [facility] Note Date/Time October 13, 2024 11:59 pm [facility] [address] [place] [address] Progress Note - Wound Care 09/18/24 1027 MR#: [id number] Acct: [id number] Name: JOSELINE ELLIS Rep #:[id number] 4 : 1950 74 From: Fatemeh Espinosa DPM PCP: [facility] Bernie Reagan MD [facility] Location: History of Present Illness Date of Service: 09/18/24 Chief Complaint: Multiple, small superficial ulcerations in the lower extremities bilaterally History of Wound: This 72-year-old white female who presented with bilateral lower extremity ulcerations. They are small in size, but multiple in number. They have been present for a lengthy period of time. 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 The patient has been using silver cell and Alberto wraps. The patient also experiences swelling and edema in her lower extremities. She sleeps in a bed at night. 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 [...] Date Recorded By Document 09/18/24 09:15 RB [id number] 09/18/24 09:18 RB 09/18/24 09:15 - Today's Visit Information Type of service Follow-up Visit (Physician/ASSOCIATE MUSIC PROFESSOR ) Arrival Mode Ambulatory, Walker Transfer Assistance [...] Date Recorded By Document 09/18/24 09:15 MEMO [id number] 09/18/24 09:18 RB 09/18/24 09:15 Wound Center [...] Attached -Granulation Amt Large (67-100%) -Granulation Quality [place] -Slough/Fibrin Yes -Necrosis Amt Small (1-33%) -Necrotic [...] Attached -Granulation Amt Medium (34-66%) -Granulation Quality [place] -Slough/Fibrin Yes -Necrosis Amt Small (1-33%) -Necrotic [...] Attached -Granulation Amt Medium (34-66%) -Granulation Quality [place] -Slough/Fibrin Yes -Necrosis Amt Small (1-33%) -Necrotic [...] Attached -Granulation Amt Medium (34-66%) -Granulation Quality [place] -Slough/Fibrin Yes -Necrosis Amt Small (1-33%) -Necrotic [...] Date Recorded By Document 09/18/24 09:30 ALBERTO [id number] 09/18/24 09:35 ALBERTO 09/18/24 09:30 Wound Center [...] Recorded Date Recorded By Document 09/18/24 09:56 [id number] 09/18/24 09:57 09/18/24 09:56 Wound Care Center [...] mellitus with diabetic polyneuropathy QUALIFIERS: Diabetes mellitus press tender long goods insulin use: with press tender long goods use Qualified Code(s): E11.42 - Type 2 diabetes mellitus with diabetic polyneuropathy; Z79.4 - 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 of insulin PLAN: Exam performed. [...] Cosigner Signature (if applicable): CC: ~ Signed [facility] Work Phone: 1(938) 900-707904-07-2025 Radiology Diagnostic study [facility]04-07-2025 Evaluation note* Diagnosis Onset Date Resolution [...] layer exposed chronic October 02, 2024 8:45am [facility] Work Phone: 1(577) 234-550204-07-2025 Evaluation note* Diagnosis Onset Date Resolution Status [...] layer exposed chronic October 09, 2024 8:45am [facility] Work Phone: 1(603) 817-505101-06-2025 Evaluation note* Diagnosis Onset Date Resolution Status [...] diabetes mellitus chronic August 20, 2024 10:26am [facility] Work Phone: 1(968) 939-625006-08-2024 Evaluation + Plan note Future Scheduled Tests Laboratory* A1C Hemoglobin 10/22/23 * Complete Blood Count 10/22/23 * Lipid Profile 10/22/23 * Complete Metabolic Panel 10/22/23 [facility] 05-08-2024 Primary care Note Chief Complaint Wants a order to be discharged home History of Present Illness Joseline is seen at [facility] today. She continues to recover from her fall 2 months ago. She did OT and PT at [facility]. She is finished with both of these. [...] family home is in town, close to [facility]. This is where she lived previously. She has a friend who was living with her who is still at the house. Does not have any family who lives close. She uses the [facility] transport service for rides to andfrom appointments. [...] mL Rectal Once Unchanged sodium chloride nasal ([place] Saline 0.65% nasal gel) See instructions one application in both nostrils q 8 hours prn for dry nares Digitally Signed by VANESSA CALDWELL APRN-CON on 09/21/2023 03:34 PM [facility] [id number] Note. MICRO - Microbiology PROCEDURE: Blood Culture [...] Locations *1: This test was performed at: [facility], [address] [place] [address], [facility] , [facility]07-16-2023 Note. MICRO - Microbiology PROCEDURE: Blood [...] Locations *1: This test was performed at: [address], [address]- , [facility]07-14-2023 Discharge summary Date of Service 07/14/23 [...] q12hr, # 60 cap(s), 3 Refill(s), Pharmacy: [facility], 155, cm, 07/10/23 21:37:00 EST, [...] qDay, # 30 tab(s), 3 Refill(s), Pharmacy: [facility], 155, cm, 07/10/23 21:37:00 EST, Height, kg, 07/10/23 21:37:00 EST, Dosing Weight Discontinued: ferrous gluconate 324 mg (38 mg elemental iron) oral tablet,Dose : 324 mg = 1 tab(s),Oral, qDay, 0 Refill(s) Ordered: metoprolol succinate 50 mg oral TABLET extended release,Dose : 50 mg = 1 tab(s), Oral, qDay, # 30 tab(s), 3 Refill(s), Pharmacy: [facility]/pharmacy #[id number], 155, cm, 07/10/23 21:37:00 EST, Height, kg, 07/10/23 21:37:00 EST, Dosing Weight Hospital Course Patient failed cardioversion x 2 in [place] [facility] after diltiazem and 0.5 digoxin did not control rate, she was transferred to [facility] for further evaluation. Was started on diltiazem [...] When 08/22/2023 10:45 AM EDT Where: [address] [facility] [address] [place] [address]- [phone] Follow Up with Discharge to [facility] Level of Care When Within 1-2 days Follow Up with JOEL LACY MD When Within 5 to 7 days Where: [address] [address] [phone] Follow Up with Home Health Care (PT/OT) provided by [facility] When Within 1-2 days Where: [phone] Follow Up with BERNIE REAGAN MD When Within 1-2 days Where: [address] [place] [address] [phone] Follow Up Appointments No qualifying data available. [...] JASMYNE SWENSON MD on 07/14/2023 03:32 PM [id number] Discharge instructions Patient Education 07/14/2023 13:12:20 Atrial Fibrillation, Epqt-fg-Atrp Atrial Fibrillation Atrial fibrillation is a type [...] Follow these instructions at home: Medicines Take bubz-xrw-mmvfdlm and prescription medicines only as told by [...] 02/08/2009 Document Revised: 07/06/2018 Document Reviewed: 06/23/2018 [employer] Patient Education 2020 [employer]. 07/14/2023 13:10:56 Electrical Cardioversion Electrical Cardioversion Electrical [...] including vitamins, herbs, eye drops, creams, and djjy-kpc-sdokqme medicines. Any problems you or family members [...] 04/22/2003 Document Revised: 04/14/2018 Document Reviewed: 11/05/2016 [employer] Patient Education 2020 [employer]. Follow Up Care 07/10/2023 18:01:14 With:Discharge to [facility] Level of Care Address:Unknown When:1-2 days With:JOEL LACY MD Address: [address] [place] [address] [address] [phone] When:5 to 7 days With:Home Health Care (PT/OT) provided by [facility] Address: [phone] When:1-2 days With:BERNIE REAGAN MD Address: [address] [place] [address] [phone] When:1-2 days With:ELMA SANTIAGO MD Address: [address] [place] [address] [address] [place] [address]- [phone] When:08/22/2023 10:45:00 [facility] 02-29-2024 Note Discharge Instructions Thank you for allowing [facility] to assist you with your healthcare needs. The following is importantdischarge information regarding your hospital visit. Your Care Team BERNIE REAGAN MD Your Diagnosis A-fib Acute hypoxic respiratory failure Cystitis Encephalopathy acute Fall Hyponatremia Influenza A Pneumonia Type 2 diabetes mellitus Weakness What to do next Scheduled Follow-Up Appointments Appointment Type When Where Contact [facility] Follow Up 08/18/2023 01:45 PM EDT [facility] Follow Up Appointments Follow Up with ELMA SANTIAGO MD When 08/22/2023 10:45 AM EDT Where: [address] [facility] [address] [place] [address]- [phone] Follow Up with Discharge to [facility] Level of Care When Within 1-2 days Follow Up with JOEL LACY MD When Within 5 to 7 days Where: [address] [facility] [address] [place] [address]- [phone] Follow Up with Home Health Care (PT/OT) provided by [facility] When Within 1-2 days Where: [phone] Follow Up with BERNIE REAGAN MD When Within 1-2 days Where: [address] [place] [address]- [phone] The Following Activity and Diet Have Been [...] Every 12 hours Refills: 3 Pickup at [facility] New ferrous sulfate (IRON (ferrous sulfate 325 mg) 65 mg oral tablet) 1 tab(s) by mouth Once a day with a meal Refills: 3 Pickup at [facility] Changed acetaminophen (Tylenol 325 mg oral capsule) 650 Milligram by mouth Every 4 hours as needed for Pain, scale 1-3 Changed amLODIPine (amLODIPine 5 mg oral tablet) 1 tab(s) by mouth Once a day Pickup at [facility] Changed atorvastatin (atorvastatin 40 mg oral tablet) 1 tab(s) by mouth Once a day Pickup at [facility] Changed metoprolol (metoprolol succinate 50 mg oral TABLET extended release) 1 tab(s) by mouth Once a day Pickup at [facility]/pharmacy #[id number] Unchanged apixaban (Eliquis 5 mg oral [...] by mouth Once a day Pharmacy Information [facility]: [address] [place] [address] [phone] [facility]/pharmacy #[id number]: [address] [place], [place] [phone] What How Much When Comments Stop Taking [...] may report side effects to FDA at 4-062-UVG-4632. What other drugs will affect amlodipine? Sometimes it is not safe to use certain medicines at the same time. Some drugs can affect your blood levels of other drugs you use, which may increase side effects or make the medicines less effective. Other drugs may affect amlodipine, including prescription and kzzo-jlv-roqjabk medicines, vitamins,and herbal products. Tell your doctor [...] to ensure that the information provided by [employer] ('[employer]') is accurate, up-to-date, and complete, but no guarantee is made to that effect. Drug information contained herein may be time sensitive. [employer] information has been compiled for use by healthcare practitioners and consumers in the [place] and therefore [employer] does not warrant that uses outside of the [place] are appropriate, unless specifically indicated otherwise. [employer] drug information does not endorse drugs, diagnose patients or recommend therapy. [employer] drug information isan informational resource designed to [...] effective or appropriate for any given patient. [employer] does not assume any responsibility for any aspect of healthcare administered with the aid of information [employer] provides. The information contained herein is not intended to cover all possible uses, directions, precautions, warnings, drug interactions, allergic reactions, or adverse effects. If you have questions about the drugs you are taking, check with your doctor, nurse or pharmacist. Copyright 6855-5433 [employer]. Version: 16.. Revision Date: 09/23/2022. dofetilide (simon [...] may report side effects to FDA at 2-720-QYB-4164. What other drugs will affect dofetilide? Other drugs may interact with dofetilide, including prescription and inmo-oly-tpwucwk medicines, vitamins, and herbal products. Tell each [...] to ensure that the information provided by [employer]. ('Multum') is accurate, up-to-date, and complete, but no guarantee is made to that effect. Drug information contained herein may be time sensitive. [employer] information has been compiled for use by healthcare practitioners and consumers in the [place] and therefore [employer] does not warrant that uses outside of the [place] are appropriate, unless specifically indicated otherwise. [employer] drug information does not endorse drugs, diagnose patients or recommend therapy. [employer] drug information isan informational resource designed to [...] effective or appropriate for any given patient. [employer] does not assume any responsibility for any aspect of healthcare administered with the aid of information [employer] provides. The information contained herein is not intended to cover all possible uses, directions, precautions, warnings, drug interactions, allergic reactions, or adverse effects. If you have questions about the drugs you are taking, check with your doctor, nurse or pharmacist. Copyright 7644-9788 [employer]. Version: 4.01. Revision Date: 08/27/2015. metoprolol (oral/injection) [...] may report side effects to FDA at 5-156-ZQS-5853. What other drugs will affect metoprolol? Tell your doctor about all your current medicines. Many drugs can affect metoprolol, especially: any other heart or blood pressure medications; epinephrine (Epi-Pen); an antidepressant; an ergot medicine--dihydroergotamine, ergonovine, ergotamine, methylergonovine; or an MAO inhibitor--isocarboxazid, linezolid, phenelzine, rasagiline, selegiline, tranylcypromine. This list is not complete and many other drugs may affect metoprolol. This includes prescription and ivpl-cyv-cqplefv medicines, vitamins, and herbal products. Not all [...] to ensure that the information provided by [employer]. ('[employer]') is accurate, up-to-date, and complete, but no guarantee is made to that effect. Drug information contained herein may be time sensitive. [employer] information has been compiled for use by healthcare practitioners and consumers in the [place] and therefore [employer] does not warrant that uses outside of the [place] are appropriate, unless specifically indicated otherwise. [employer] drug information does not endorse drugs, diagnose patients or recommend therapy. [employer] drug information isan informational resource designed to [...] effective or appropriate for any given patient. [facility] does not assume any responsibility for any aspect of healthcare administered with the aid of information [facility] provides. The information contained herein is not intended to cover all possible uses, directions, precautions, warnings, drug interactions, allergic reactions, or adverse effects. If you have questions about the drugs you are taking, check with your doctor, nurse or pharmacist. Copyright 4975-1142 [employer]. Version: .. Revision Date: 12/22/2022. Education Materials [...] Follow these instructions at home: Medicines Take twpe-uox-aiwtvqc and prescription medicines only as told by [...] 02/08/2009 Document Revised: 07/06/2018 Document Reviewed: 06/23/2018 [employer] Patient Education 2020 [employer]. Electrical Cardioversion Electrical cardioversion is the delivery [...] including vitamins, herbs, eye drops, creams, and jkay-pad-ekmzoci medicines. Any problems you or family members [...] 04/22/2003 Document Revised: 04/14/2018 Document Reviewed: 11/05/2016 [employer] Patient Education 2020 [employer]. Additional Information VACCINATE! IT SAVES LIVES! Members of the community who have not yet received the COVID-19 vaccine and would like to receive it can visit one of [facility] vaccine clinics. There are many vaccine clinic locations within the [facility]. For locations and available times, please visit [email or web address].[place].gov/. It is important to note that some COVID mobile vaccine clinics are held outdoors and may be canceled in rainy or stormy conditions. To learn more about pediatric vaccinations (ages 5-11), we invite you to visit the [facility] webpage. https://www.[facility].org/pages/6882-Qgbtv-Tooxccbyzgl-Febthczbdj-Ileuw-Zcz stions.htmlTo learn more about the COVID-19 vaccine, we invite you to visit the CDC website for a list of frequently asked questions.https://www.cdc.gov/coronavirus/2019-ncov/vaccines/faq.html [facility] Patient Portal Access Instructions: Stay connected with your healthcare team and access your personal medical information anytime with the [facility] Patient Portal. Please follow the directions below to create your [employer] account: 1.Access the email account you provided upon registration to the hospital/physician office.2.Look for an invitation email from [facility].3.Open the email and access the invitation link: AcceptInvitation to [facility].4.Fill in the required cunha to create your account. To access your account, visit [email or web address] Voice MediaOneChart. Click the blue button labeled Access Patient Portal and then log in with the username and password that you created in the steps above. You will be able to view your test results, lab results, a summary of your visits, upcoming appointments and more. There is also a convenient messaging option where you can send secure messages to your p Bloominousvider. In addition, you will have the ability to download any documents or summaries to your computer and/or send the information securely to a physician. Remember that your healthcare information is confidential, so carefully consider who you will allowto register on the [facility] Patient Portal for access to your information. You can also access the [facility] Patient Portal on the [facility] alfonzo. Simply click on Patient Portal and then log into your account. If you would like to receive a full copy of your medical records, please contact the [facility] Medical Records Department by calling [phone], Tuesday through Tuesday between 8 a.m. and [...] Call your local pharmacy or go to http://bit.ly/9E7Bq0k to find one close to you.3.Make use of household items: Use cat litter or old coffee grounds to dispose medications if other options arenot available. Mix your drugs with these household products, seal them in an airtight container andthrow it into the garbage. Call [facility]: [phone] to be sure your drugs can be [...] COPY. Signatures Patient Education Materials Atrial Fibrillation, Fsjc-zy-Gfbw Electrical Cardioversion Medication Leaflets amlodipine, dofetilide, metoprolol (oral/injection) My discharge plan and instructions have been reviewed and explained to me and IVENKATESH CRISTIA understand my current condition and have read and understand these discharge instructions. I have received a written copy of the plan/instructions. If I have questions, I am aware that I should contact my doctor. 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 Signature: Date/Time: Relationship to Patient: Witness Name/Signature: Date/Time: ____ (more content not included)... [facility] [id number] Note Discharge Instructions Thank you for allowing [...] Hospital Follow Up 08/18/2023 01:45 PM EDT [facility] Follow Up Appointments Follow Up with ELMA SANTIAGO MD When 08/22/2023 10:45 AM EDT Where: [address] [facility] [address] [place] [address]- [phone] Follow Up with Discharge to [facility] Level of [facility] When Within 1-2 days Follow Up with JOEL LACY MD When Within 5 to 7 days Where: [address] [facility] [address] [place] [address]- [phone] Follow Up with Home Health Care (PT/OT) provided by [facility] When Within 1-2 days Where: [phone] Follow Up with BERNIE REAGAN MD When Within 1-2 days Where: [address] [place] [address]- [phone] The Following Activity and Diet Have Been [...] Every 12 hours Refills: 3 Pickup at [facility] New ferrous sulfate (IRON (ferrous sulfate 325 mg) 65 mg oral tablet) 1 tab(s) by mouth Once a day with a meal Refills: 3 Pickup at [facility] Changed acetaminophen (Tylenol 325 mg oral capsule) 650 Milligram by mouth Every 4 hours as needed for Pain, scale 1-3 Changed amLODIPine (amLODIPine 5 mg oral tablet) 1 tab(s) by mouth Once a day Pickup at [facility] Changed atorvastatin (atorvastatin 40 mg oral tablet) 1 tab(s) by mouth Once a day Pickup at [facility] Unchanged apixaban (Eliquis 5 mg oral [...] by mouth Once a day Pharmacy Information [facility]: [address] [place] [address] [phone] What How Much When Comments Stop Taking [...] are many vaccine clinic locations within the [facility] [address]. For locations and available times, please visit https://gettheshot.coronavirus.[place].gov/. It is important to note that some COVID mobile vaccine clinics are held outdoors and may be canceled in rainy or stormy conditions. To learn more about pediatric vaccinations (ages 5-11), we invite you to visit the [facility] webpage. https://www.[facility].org/pages/9211-Pysdw-Lgudfcoqcxu-Clgwulhvns-Ljzis-Lpq stions.htmlTo learn more about the COVID-19 vaccine, we invite you to visit the CDC website for a list of frequently asked questions.https://www.cdc.gov/coronavirus/2019-ncov/vaccines/faq.html [facility] Patient Portal Access Instructions: Stay connected with your healthcare team and access your personal medical information anytime with the [facility] Patient Portal. Please follow the directions below to create your [facility] [employer] account: 1.Access the email account you provided upon registration to the hospital/physician office.2.Look for an invitation email from [facility].3.Open the email and access the invitation link: AcceptInvitation to [facility].4.Fill in the required cunha to create your account. To access your account, visit [email or web address] [email or web address] Energy Grouphart. Click the blue button labeled Access Patient [...] who you will allowto register on the [facility] Patient Portal for access to your information. You can also access the [facility] [employer] Patient Portal on the [facility] alfonzo. Simply click on Patient Portal and then log into your account. If you would like to receive a full copy of your medical records, please contact the [facility] Medical Records Department by calling [phone], Tuesday through Tuesday between 8 a.m. and [...] Call your local pharmacy or go to http://bit.ly/6E4Dn0q to find one close to you.3.Make use of household items: Use cat litter or old coffee grounds to dispose medications if other options arenot available. Mix your drugs with these household products, seal them in an airtight container andthrow it into the garbage. Call [facility]: [phone] to be sure your drugs can be [...] aware that I should contact my doctor. 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 Signature: Date/Time: Relationship to Patient: Witness Name/Signature: Date/Time: [facility] CenterAzwibebg26-54-1424 Cardiology Progress note Date of Service July [...] KARLENE Colmenares- Nurse Practitioner - Cardiac Electrophysiology [phone] [employer] Digitally Signed by ELLEN RAMESH EDITOR MAP-ASSOCIATE MUSIC PROFESSOR on 07/14/2023 11:17 AM Digitally Signed by JOEL LACY MD [facility] [id number] Cardiology Progress note Date of Service July [...] KARLENE Colmenares- Nurse Practitioner - Cardiac Electrophysiology [phone] [employer] Digitally Signed by ELLEN RAMESH on 07/13/2023 01:28 PM [facility] [id number] NoteSINUS RHYTHM LOW VOLTAGE, EXTREMITY LEADS Electronic Signature: MANDO PALENCIA MD 07/14/2023 10:54:45[facility] 02-28-2024 Progress note Date of Service 07/13/2023 Subjective Patient is 73-year-old female with a past medical history of CVA, Afib on Eliquis, HTN, type 2 diabetes, chronic right hip fracture, HFpEF who was transferred from the [facility] emergency room after suffering a fall at [facility]. Patient had altered mentation, febrile, with a UTI and pneumonia on arrival to [facility] ED. Patient was positive for influenza A [...] lucency surrounding the elbow prosthesis could be provider service representative of loosening, infection, or particle [...] Continue sliding scale insulin and glimepiride. Most gjpjkiM0g 6.4. 9. Hyponatremia Sodium is 134. Continue to monitor 10. Weakness Continue to increase physical activity as patient tolerates. Discussed with Dr. Berry. Time Spent 20 minutes spent interviewing patient, reviewing plan of care, and documentation. Digitally Signed by Magali Norman Student MSN-EDITOR MAP on 07/13/2023 02:59 PM [facility] CenterTxfprysb18-31-0778 Note Date of Service 07-13-2023 Chief Complaint fatigue Subjective Patient is a 73-year-old female with past medical history significant for CVA, proximal A-fib on Eliquis, hypertension, type 2 diabetes, chronic right hip fracture, heart failure preserved EF who wastransferred from [facility] emergency room after suffering a fall at [facility]. She was admitted to cardiology service after found to be in atrial flutter with RVR and had 2 failed cardioversions. Was started on a diltiazem drip. Mentation was altered in the [facility] ER was found to be febrile with [...] by BRITT HOPKINS on 07/13/2023 01:13 PM [facility] CenterZubncxin37-83-6657 NoteSINUS RHYTHM LOW VOLTAGE, EXTREMITY LEADS Electronic Signature: MANDO PALENCIA MD 07/14/2023 10:53:51[facility] 02-28-2024 Cardiology Progress note Subjective No acute [...] Impression/plan: -Patient failed cardioversion x 2 in [facility] ED after diltiazem and 0.5 digoxin did [...] 2/2 to underlying infection, CTH negative at [facility] ED. neurology evaluated patient,reaffirmed AMS secondary to metabolic derangements and acute infectious process. Currently in atrial fibrillation, rate controlled on Toprol. EP started on Tikosyn, has received fifth loading dose, QTc within normal limits. Now status post DCCV, successful. Maintaining normal sinus rhythm. Disposition: Discharged to assisted living facility with oxygen. Digitally Signed by JASMYNE SWENSON MD on 07/13/2023 11:55 AM [facility] [id number] Cardiology Progress note Subjective No acute overnight [...] Impression/plan: -Patient failed cardioversion x 2 in [facility] ED after diltiazem and 0.5 digoxin did [...] 2/2 to underlying infection, CTH negative at [facility] ED. neurology evaluated patient,reaffirmed AMS secondary to metabolic derangements and acute infectious process. Currently in atrial fibrillation, rate controlled on Toprol. EP started on Tikosyn, has received fifth loading dose, QTc within normal limits. Now status post DCCV, successful. Maintaining normal sinus rhythm. Disposition: Discharged to assisted living facility with oxygen. Digitally Signed by JASMYNE SWENSON MD on 07/13/2023 11:55 AM [facility] [id number] NoteSINUS RHYTHM ATRIAL PREMATURE COMPLEXES LOW VOLTAGE, EXTREMITY LEADS Electronic Signature: MANDO PALENCIA MD 07/14/2023 10:47:15[facility] 02-28-2024 Cardiology Progress note Date of Service [...] KARLENE Colmenares- Nurse Practitioner - Cardiac Electrophysiology [phone] Connect Messenger Digitally Signed by ELLEN [facility]ESHVAL[facility] on 07/13/2023 01:28 PM [facility] CenterGdjjhktj20-85-1885 Procedure note Date of Service July 13, [...] hours + rate control therapy with metoprolol jckyfggxo368th twice daily/diltiazem immediate release 60mg four times daily. Anticoagulated with Eliquis 5mg twice daily. Patient presented in a fasting, well-hydrated state. Presenting rhythm was atrial flutter with a ventricular response rate of 101 bpm. Once a SUPERVISOR CAR INSTALLATIONS administered an IV anesthetic agent and the patient was fully sedated, an anterior-posterior patch placement was utilized to deliver a synchronized biphasic waveform at 20 J with anteriordirect pressure which resulted in the zoroastrian of normal sinus rhythm at a heart rate of 61 bpm. The patient tolerated the procedure well and returned to CCU bed 341 in stable condition. Digitally Signed by ELLEN RAMESH on 07/13/2023 09:41 AM [facility] CenterUjzkjkpd54-17-3213 NoteATRIAL FLUTTER/FIBRILLATION NONSPECIFIC T ABNORMALITIES, INFERIOR LEADS Electronic Signature: MANDO PALENCIA MD 07/13/2023 11:01:46[facility] 02-27-2024 Progress note Date of Service 07/12/2023 Chief Complaint Fall Subjective Patient is 73-year-old female with a past medical history of CVA, Afib on Eliquis, HTN, type 2 diabetes, chronic right hip fracture, HFpEF who was transferred from the [facility] emergency room after suffering a fall at [facility]. Patient had altered mentation, febrile, with a UTI and pneumonia on arrival to [facility] ED. Patient was positive for influenza A [...] lucency surrounding the elbow prosthesis could be provider service representative of loosening, infection, or particle [...] Continue sliding scale insulin and glimepiride. Most fqssxsN1j 6.4. 9. Hyponatremia Sodium is 133. Continue to monitor 10. Weakness Continue to increase physical activity as patient tolerates. Discussed with Dr. Berry. Time Spent 25 minutes spent interviewing patient, reviewing plan of care, and documentation. Digitally Signed by Magali Norman Student MSN-EDITOR MAP on 07/12/2023 04:07 PM [facility] [id number] Infectious disease Consult note Date of Service 07/12/2023 Reason for Consultation ESBL UTI Referring Physician Britt Hopkins CNP History of Present Illness 73-year-old female with past medical history of CVA, proximal atrial fibrillation on Eliquis, hypertension, type 2 diabetes, chronic right hip fracture, heart failure presents from [facility] after suffering fall at [facility] as well as fever and altered mental [...] hip fracture and heart failure presents from [place] after suffering fallat [facility] with fever and [...] by CAROLA CHO on 07/12/2023 02:06 PM [facility] CenterZeuygfpu87-58-1273 Note Date of Service 07-12-2023 Chief Complaint flu A Subjective Patient is a 73-year-old female with past medical history significant for CVA, proximal A-fib on Eliquis, hypertension, type 2 diabetes, chronic right hip fracture, heart failure preserved EF who wastransferred from [facility] emergency room after suffering a fall at [facility]. She was admitted to cardiology service after found to be in atrial flutter with RVR and had 2 failed cardioversions. Was started on a diltiazem drip. Mentation was altered in the [facility] ER was found to be febrile with [...] by BRITT HOPKINS on 07/12/2023 02:04 PM [facility] [id number] Note. MICRO - Microbiology PROCEDURE: Urine Culture [*1] SOURCE: Urine BODY SITE: COLLECTED DATE/TIME: 07/10/2023 23:48 EST RECEIVED DATE/TIME: 07/11/2023 07:05 EST START DATE/TIME: 07/11/2023 07:05 EST FREE TEXT SOURCE: FINAL REPORTS Final Report [] Verified Date/Time/Personnel: 07/12/2023 11:01 EST 50,000 - 100,000 cfu/ml Escherichia coli ESBL Refer to previous culture for susceptibility. [id number] collected 07-10-23 Extended-Spectrum B-Lactamase isolate may be clinically resistant to therapy with Penicillins, Cephalosporinsor Aztreonam despite apparent in vitro susceptibility to some of these agents. Use of Imipenem is currently restricted to Infectious Disease /Intensivists. Please consult Physicians accordingly. SUSCEPTIBILITY RESULTS Escherichia coli ESBL Antibiotic LATISHA Dilut LATISHA Inter ID Panel Not Not Applicable Applicable Performing Locations *1: This test was performed at: [facility], [address] [place] [address], [facility] , [facility] ([place])07-12-2023 Orthopaedic surgery Consult note Date of [...] JOSÉ INIGUEZ MD on 07/11/2023 04:46 PM [facility] CenterSrmgngyy89-60-1941 NoteATRIAL FLUTTER WITH PREDOMINANT 4:1 AV BLOCK Electronic Signature: MANDO PALENCIA MD 07/13/2023 11:01:[address] [place] [address] 02-27-2024 Infectious disease Consult note Date of Service 07/12/2023 Reason for Consultation ESBL UTI Referring Physician Britt Hopkins CNP History of Present Illness 73-year-old female with past medical history of CVA, proximal atrial fibrillation on Eliquis, hypertension, type 2 diabetes, chronic right hip fracture, heart failure presents from [facility] after suffering fall at [facility] as well as fever and altered mental [...] hip fracture and heart failure presents from [place] after suffering fallat [facility] with fever and [...] by CAROLA CHO on 07/12/2023 02:06 PM [facility] [id number] Note. MICRO - Microbiology PROCEDURE: Urine Culture [...] Cefazolin >16 Resistant Cefotaxime >32 Suspected ESBL Blow Moulding Machine Operator Ceftriaxone >32 Suspected ESBL Blow Moulding Machine Operator Cefuroxime >16 Resistant Ciprofloxacin >2 Resistant Ertapenem <=0.5 Susceptible Gentamicin <=2 Susceptible ID Panel Not Not Applicable Applicable Imipenem <=1 Susceptible Levofloxacin >4 Resistant Meropenem <=1 Susceptible Minocycline <=4 Susceptible Nitrofurantoin <=32 Susceptible Trimethoprim/ >2/38 Resistant Sulfa Performing Locations *1: This test was performed at: [facility], [address] [place] [address], [id number] , [facility] ([place])07-12-2023 NoteATRIAL FLUTTER WITH PREDOMINANT 3:1 AV BLOCK LOW VOLTAGE, EXTREMITY LEADS NONSPECIFIC T ABNORMALITIES, ANTERIOR LEADS PROLONGED QT INTERVAL Electronic Signature: MANDO PALENCIA MD 07/12/2023 09:58:58[facility] 02-26-2024 Cardiology Consult note Date of Service 07/11/23 Reason for Consultation atrial flutter Referring Physician Dr Santiago History of Present Illness 73-year-old female with paroxysmal atrial fibrillation, now in flutter, on Eliquis, CVA, LEIGH ANN on CPAP, acute respiratory failure (5L O2, none at home), hypertension, type 2 diabetes, right hip fracture on 12/22/2022, HFpEF who was transferred from [place] [facility] after a fall at [facility]. Patient reports having paroxysmal atrial fibrillation [...] on 12/22/2022, HFpEF who was transferred from [facility] after a fall at [facility]. 1. atrial flutter with variable AV conduction, intermittent RVR, currently 4:1. Possibly course AFib, although the cycle length mostly appears regular at TCL 217 ms. No prior ablations or cardiac surgery, thus most likely CTI-dependent. She would likely benefit from zoroastrian of sinus rhythm. We discussed AAD for now as we won't be able to ablate her now due to resp failure. Recommend tikosyn due to superior efficay. Cr Cl is 71 . Patient agreeable. Patient reportedly had DCCV at [facility] but she does not recall this. [...] above Thank you for the consult Joel aLcy MD Cardiac Electrophysiology [phone] Problem List/Past Medical History Ongoing No qualifying [...] JOEL LACY MD on 07/11/2023 06:23 PM [facility] CenterUddhbvuw01-16-2318 Note Date of Service 07-11-2023 Chief Complaint Influenza Subjective Patient is a 73-year-old female with past medical history significant for CVA, proximal A-fib on Eliquis, hypertension, type 2 diabetes, chronic right hip fracture, heart failure preserved EF who wastransferred from [facility] after suffering a fall at [facility]. She was admitted to cardiology service after found to be in atrial flutter with RVR and had 2 failed cardioversions. Was started on a diltiazem drip. Mentation was altered in the [place] ER was found to be febrile with [...] on the Right hip. Discussed with Dr. eBtts Digitally Signed by BRITT HOPKINS on 07/11/2023 01:52 PM [facility] CenterKjuspwvy03-50-0958 Orthopaedic surgery Consult note Date of Service [...] JOSÉ INIGUEZ MD on 07/11/2023 04:46 PM [facility] CenterMggjjfqu91-87-8047 Note* Exam Date Time Procedure Performing Provider Status 07/11/23 2:49 PM Echocardiogram, Adult - CV Auth (Verified) [facility] 02-26-2024 Note Date of Service 07-11-2023 Chief Complaint Influenza Subjective Patient is a 73-year-old female with past medical history significant for CVA, proximal A-fib on Eliquis, hypertension, type 2 diabetes, chronic right hip fracture, heart failure preserved EF who wastransferred from [facility] emergency room after suffering a fall at [facility]. She was admitted to cardiology service after found to be in atrial flutter with RVR and had 2 failed cardioversions. Was started on a diltiazem drip. Mentation was altered in the [place] ER was found to be febrile with [...] by BRITT HOPKINS on 07/11/2023 01:52 PM [facility] CenterWqsuildn90-59-5095 NoteATRIAL FLUTTER WITH PREDOMINANT 4:1 AV BLOCK Electronic Signature: MANDO PALENCIA MD 07/12/2023 09:58:46[facility] 02-26-2024 History and physical note Date of Service 07/10/23 History of Present Illness Patient is a 73-year-old female with a past medical history of CVA, paroxysmal atrial fibrillation on Eliquis, hypertension, type 2 diabetes, right hip fracture on 12/22/2022, HFpEF who was transferred[facility]. Patient was found to be in atrial flutter with RVR and underwent cardioversion x 2 in the ED at [place] afterrate was not controlled with Dilt drip/bolus [...] is her baseline however after speaking with [facility] this is new. She is also [...] CT of the head was negative at [place]. Review of Systems 12 point ROS reviewed [...] Plan -Patient failed cardioversion x 2 in [place] ED after diltiazem and 0.5 digoxin did [...] 2/2 to underlying infection, CTH negative at [facility] ED. Will consult neurology for evaluation. [...] GUEVARA ALEXIS MD on 07/11/2023 07:56 AM [facility] [id number] Note ORIGINAL EXAMINATION: TWO XRAY VIEWS OF [...] surrounding the ulnar component which could be provider service representative of loosening or particle disease. [...] Lucency surrounding the elbow prosthesis could be provider service representative of loosening, infection, or particle disease. Interpreted by: Kan Bradley MD Preliminary Report By: Kan Bradley MD Electronically signed By Kan Bradley MD Dictated Date: 07/11/2023 12:29:16 PM Prelim Date: 07/11/2023 12:32:10 PM Sign Date: 07/11/2023 12:32:10 PM Ordering Provider: [facility]02-26-2024 Neurology Consult note Date of Service July [...] and mild incoherence Orientation: oriented to person, [facility], and month Language: normal fluency(aside from [...] WALE SILVERIO MD on 07/11/2023 11:41 AM [facility] CenterDfjyerpd46-31-8727 Consult note Date of Service 07/10/2023 Reason for Consultation Management of UTI and pneumonia Referring Physician Dr Elena Alexis History of Present Illness This is a 73-year-old female patient with past medical history significant for CVA, paroxysmal atrial fibrillation on Eliquis, hypertension, type 2 diabetes mellitus, chronic right hip fracture from 12/22/2022, heart failure preserved EF who was transferred from [place] emergency room after suffering a fall at [facility]. Patient was found to be in atrial flutterwith RVR and had 2 failed cardioversions, and was started on a diltiazem drip. She was found to have altered mentation at [place] [facility], she was febrile and found to have UTI and pneumonia. She was transferred to [facility] under cardiology services with a hospitalist consult [...] by PARAMJIT FRAZIER on 07/11/2023 12:00 AM [facility] CenterRbcauifn11-06-4872 Note. MICRO - Microbiology PROCEDURE: Streptococcus Pneumoniae [...] Locations *1: This test was performed at: [facility], [address] [place] [address], [facility] , [facility] [place]07-11-2023 Note. MICRO - Microbiology PROCEDURE: Legionella [...] Locations *1: This test was performed at: [facility], [address] [place] [address], [id number] , [facility] ([place])07-11-2023 Respiratory therapy Hospital Progress note Respiratory Therapy Evaluation Entered On: 07/11/2023 1:01 EST Performed On: 07/11/2023 1:00 EST by Becca Pandey COORDINATOR OF LIBRARY SERVICES Respiratory Therapy Evaluation Pulmonary Status : Non-smoker Surgical Status : No surgeries Chest X-Ray : Clear/not ordered Breath Sounds (RT) : Decreased bilaterally Respiratory Pattern (RT) : SIMON,Irregular or RR =26-30 Cough (RT) : Strong, non-productive Respiratory Therapy Evaluation Score : 5 Level of Activity : Ambulatory with assistance Mental Status : Alert, oriented RT Assessment [Frequency/Schedule] : Q4 PRN Becca Pandey COORDINATOR OF LIBRARY SERVICES - 07/11/2023 1:00 EST Digitally Signed by Becca Pandey COORDINATOR OF LIBRARY SERVICES on 07/11/2023 01:00 AM [facility] CenterIhbswxny65-03-4322 Consult note Date of Service 07/10/2023 Reason for Consultation Management of UTI and pneumonia Referring Physician Dr Elena Alexis History of Present Illness This is a 73-year-old female patient with past medical history significant for CVA, paroxysmal atrial fibrillation on Eliquis, hypertension, type 2 diabetes mellitus, chronic right hip fracture from 12/22/2022, heart failure preserved EF who was transferred from [place] emergency room after suffering a fall at [facility]. Patient was found to be in atrial flutterwith RVR and had 2 failed cardioversions, and was started on a diltiazem drip. She was found to have altered mentation at [place] ER, she was febrile and found to have UTI and pneumonia. She was transferred to [facility] under cardiology services with a hospitalist consult [...] by PARAMJIT FRAZIER on 07/11/2023 12:00 AM [facility] CenterMqzbjtmk02-10-8812 History and physical note Date of Service 07/10/23 History of Present Illness Patient is a 73-year-old female with a past medical history of CVA, paroxysmal atrial fibrillation on Eliquis, hypertension, type 2 diabetes, right hip fracture on 12/22/2022, HFpEF who was transferredfrom [place] [facility] after suffering a fall at [facility]. Patient was found to be in atrial flutter with RVR and underwent cardioversion x 2 in the ED at [place] afterrate was not controlled with Dilt drip/bolus [...] is her baseline however after speaking with [facility] this is new. She is also [...] CT of the head was negative at [place]. Review of Systems 12 point ROS reviewed [...] Plan -Patient failed cardioversion x 2 in [place] ED after diltiazem and 0.5 digoxin did [...] 2/2 to underlying infection, CTH negative at [facility] ED. Will consult neurology for evaluation. [...] GUEVARA ALEXIS MD on 07/11/2023 07:56 AM [facility] CenterIriuixsh78-33-3413 NoteATRIAL FLUTTER TACHYCARDIA REPOL ABNRM SUGGESTS ISCHEMIA, INFERIOR LEADS Electronic Signature: MANDO PALENCIA MD 07/12/2023 09:59:20[facility] 02-25-2024 NoteATRIAL FLUTTER LOW VOLTAGE, EXTREMITY LEADS Electronic Signature: MANDO PALENCIA MD 07/11/2023 12:08:20[facility] 02-25-2024 Note ORIGINAL EXAMINATION: ONE XRAY VIEW [...] Date: 07/10/2023 10:41:58 PM [facility]ing [facility] Progress note Sallie from [facility] called in seeking update on Cristia. Updated that we are still working her up for injuries at this time Digitally Signed by Yazmin Staton RN on 07/10/2023 02:07 PM [facility]02-25-2024 NoteAtrial flutter Paired ventricular premature complexes Aberrant conduction of SV complex(es) Inferior infarct, age indeterminate Lateral leads are also involved Electronic Signature: MD COLLIN, CARLOS CALLOWAY 07/10/2023 18:30:19[facility] 02-25-2024 NoteAtrial fibrillation Ventricular premature complex Low voltage, extremity leads RSR' in V1 or V2, probably normal variant Baseline wander in lead(s) V6 Electronic Signature: MD COLLIN, CARLOS CALLOWAY 07/10/2023 18:30:10[facility] Cristia. Updated that we are still working her up for injuries at this time Digitally Signed by Yazmin Staton RN on 07/10/2023 02:07 PM [facility]02-25-2024 Evaluation + Plan note Diagnostic Tests Pending * Urine Culture 07/10/23 [facility] 02-25-2024 Evaluation + Plan noteExtracted from: Title:History [...] Plan -Patient failed cardioversion x 2 in [facility] after diltiazem and 0.5 digoxin did [...] 2/2 to underlying infection, CTH negative at [facility] ED. Will consult neurology for evaluation. [...] the resident's documentation and agree with the resident/fellow/LAND CLASSIFIER/PA findings and plan as documented, unless otherwise stated. Future Appointments Appointment Date:08/18/2023 01:45:00 PM Scheduled Provider: Location:[facility] Appointment Type:[facility] Up [facility] 02-25-2024 Note ORIGINAL EXAMINATION: CT of the [...] Date: 07/10/2023 2:58:24 PM [facility]ing [facility] Note ORIGINAL EXAMINATION: 1 XRAY [...] Sign Date: 07/10/2023 11:57:05 AM Ordering Provider: [facility]02-25-2024 Note ORIGINAL EXAMINATION: ONE XRAY VIEW OF [...] Sign Date: 07/10/2023 11:51:57 AM Ordering Provider: [facility]02-25-2024 Note ORIGINAL EXAMINATION: CT OF THE CERVICAL [...] 07/10/2023 11:51:46 AM Ordering Provider: CARLOS [facility]02-25-2024 Note ORIGINAL EXAMINATION: CT OF [...] 07/10/2023 11:49:26 AM Ordering Provider: CARLOS [facility]02-25-2024 NoteATRIAL FIBRILLATION Prolonged VA interval Low voltage, extremity leads Abnormal R-wave progression, late transition ST depr, consider ischemia, inferior leads Electronic Signature: MD COLLIN, CARLOS CALLOWAY 07/10/2023 11:18:11[facility]-2023 Discharge summary Author Sebastian Sesay [facility] April 07, 2023 4:11pm Note Date/Time April 07, 2023 2:44pm [facility] Medical Records Department [address] [address] Emergency Department Summary 04/07/23 MR#: [id number] Acct: [id number] Name: JOSELINE ELLIS Rep #:[id number] : 1950 73 From: Sebastian Washburn PCP: Dr. 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 She is appropriate discharge back to detention. The patient and/or family, caregivers express understanding. [...] 75.5 H Lymph % (Auto) 11.9 L Guthrie % (Auto) 11.2 H Eos % (Auto) [...] 15:23 EST Reading Location ID and State: [facility] / [place] , Service support , Discharge Plan Triage [...] your Primary Care Provider. Call [facility] ([phone]) or report to the closest Emergency Room. Call 911 if necessary. 04/07/23 1611 <Electronically signed by Sebastian Sesay DO> Cosigner Signature (if applicable): CC: Dr. Bernie Reagan MD ~ Signed [facility] Work Phone: 1(335) 568-632108-15-2023 Note Discharge Instructions Thank you for allowing [...] 15 MINUTES EARLY Where: [address] [place] [address]- Follow Up with [facility] [phone] When Within 1-2 days Follow Up with BERNIE REAGAN MD When Within 2-4 days Where: [address] [place] [address]- [phone] The Following Activity and Diet Have Been [...] MD Results Notify to: Covering provider at [facility], 2-4 days, 12/28/22 12:29:00 EDT Discharge Radiology [...] MD Results Notify to: Covering provider at [facility], 2-4 days, 12/28/22 12:29:00 EDT Transfer of [...] needed for Pain, scale 1-3 Unchanged acetaminophen-hydrocodone (Arroyo 325- 5 mg oral tablet) 1 tab(s) [...] are many vaccine clinic locations within the [facility] [address] [facility]. For locations and available times, please visit https://gettheshot.coronavirus.[place].gov/. It is important to note that some COVID mobile vaccine clinics are held outdoors and may be canceled in rainy or stormy conditions. To learn more about pediatric vaccinations (ages 5-11), we invite you to visit the [employer] [facility] webpage. https://www.akronCraigslists.org/pages/4929-Rtpqv-Nyrbtwwbklw-Bkdwmbxniy-Gcarp-Gje stions.htmlTo learn more about the COVID-19 vaccine, we invite you to visit the CDC website for a list of frequently asked questions.https://www.cdc.gov/coronavirus/2019-ncov/vaccines/faq.html [facility] Patient Portal Access Instructions: Stay connected with your healthcare team and access your personal medical information anytime with the [facility] Patient Portal. Please follow the directions below to create your [facility] account: 1.Access the email account you provided upon registration to the hospital/physician office.2.Look for an invitation email from [facility].3.Open the email and access the invitation link: AcceptInvitation to [employer].4.Fill in the required cunha to create your account. To access your account, visit [employer]. Click the blue button labeled Access Patient [...] who you will allowto register on the [employer] Patient Portal for access to your information. You can also access the [facility] Patient Portal on the [facility] alfonzo. Simply click on Patient Portal and then log into your account. If you would like to receive a full copy of your medical records, please contact the [facility] Medical Records Department by calling [phone], Tuesday through Tuesday between 8 a.m. and [...] Call your local pharmacy or go to http://[employer]Nano Think/3I0Bi1f to find one close to you.3.Make use of household items: Use cat litter or old coffee grounds to dispose medications if other options arenot available. Mix your drugs with these household products, seal them in an airtight container andthrow it into the garbage. Call [facility]: [phone] to be sure your drugs can be [...] aware that I should contact my doctor. 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 Signature: Date/Time: Relationship to Patient: Witness Name/Signature: Date/Time: [facility] CenterJetmsjbk20-82-6805 Note Discharge Instructions Thank you for allowing [place] to assist you with your healthcare needs. [...] 15 MINUTES EARLY Where: [address] [place] [address]- Follow Up with [facility] [phone] When Within 1-2 days Follow Up with BERNIE REAGAN MD When Within 2-4 days Where: [address] [place] [address]- [phone] The Following Activity and Diet Have Been [...] CBC/BMP, Anemia/ Diuretic management, Results Notify to: BENRIE REAGAN MD Results Notify to: Covering provider at [facility], 2-4 days, 12/28/22 12:29:00 EDT Discharge Radiology [...] MD Results Notify to: Covering provider at [facility], 2-4 days, 12/28/22 12:29:00 EDT Transfer of [...] needed for Pain, scale 1-3 Unchanged acetaminophen-hydrocodone (Arroyo 325- 5 mg oral tablet) 1 tab(s) [...] are many vaccine clinic locations within the [facility] [address]. For locations and available times, please visit https://[email or web address].[place].[facility]/. It is important to note that some COVID mobile vaccine clinics are held outdoors and may be canceled in rainy or stormy conditions. To learn more about pediatric vaccinations (ages 5-11), we invite you to visit the [employer] webpage. https://www.[employer].org/pages/6557-Scyzt-Uqowkenmvfo-Klzanhvyzp-Zdsff-Dmf stions.htmlTo learn more about the COVID-19 vaccine, we invite you to visit the CDC website for a list of frequently asked questions.https://www.cdc.gov/coronavirus/2019-ncov/vaccines/faq.html [facility] Patient Portal Access Instructions: Stay connected with your healthcare team and access your personal medical information anytime with the [facility] Patient Portal. Please follow the directions below to create your [facility] account: 1.Access the email account you provided upon registration to the hospital/physician office.2.Look for an invitation email from [facility].3.Open the email and access the invitation link: AcceptInvitation to [employer].4.Fill in the required cunha to create your account. To access your account, visit [employer]ee[employer]. Click the blue button labeled Access Patient [...] who you will allowto register on the [facility] for access to your information. You can also access the [facility] Patient Portal on the [place] Any[facility] alfonzo. Simply click on Patient Portal and then log into your account. If you would like to receive a full copy of your medical records, please contact the [facility] Medical Records Department by calling [phone], Tuesday through Tuesday between 8 a.m. and [...] Call your local pharmacy or go to http://[employer]/9O2Ou5l to find one close to you.3.Make use of household items: Use cat litter or old coffee grounds to dispose medications if other options arenot available. Mix your drugs with these household products, seal them in an airtight container andthrow it into the garbage. Call [facility]: [phone] to be sure your drugs can be [...] aware that I should contact my doctor. 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 Patient presented to [facility] emergency department December 22, 2022 after sustaining a fall athome. Patient was found to have a right intertrochanteric fracture hip fracture. Patient was then transferred to [facility] for further evaluation orthopedic consult. Patient was [...] Therapy recommend patient be discharged to a alf facility. Patient states she is feeling well. Patient is tolerating room air without difficulty. Patient denies any shortness of breath, chest pain, nausea, vomiting, lightness and dizziness. Patient denies any blood loss.Hemoglobin still lower than baseline. Patient is asymptomatic. We will repeat CBC and BMP as outpatient.At this time patient is medically optimized for discharge to the [facility]. Plan of care discussed in depth with [...] as needed Pain, scale 1-3. Unchanged acetaminophen-hydrocodone (Arroyo 325- 5 mg oral tablet)1 tab(s) by [...] 15 MINUTES EARLY Where: [address] [place] [address]- Follow Up with BERNIE REAGAN MD When Within 2-4 days Where: [address] [place] [address] [phone] Follow Up Appointments Transfer of Care OT [...] MD Results Notify to: Covering provider at [facility], 2-4 days, 12/28/22 12:29:00 EDT Discharge Studies No Follow-up Studies Discharge Diet Transfer of Care Diet - Ordered -- Type of Diet: Regular Diet, Calories Permitted: 1800 kcal, 12/28/22 12:29:00 EDT Discharge Activity Transfer of Care Activity - Ordered -- Other, Nonweightbearing to the right lower extremity, 12/28/22 12:29:00 EDT Condition on Discharge Stable Discharge Disposition [facility] Information Provided To Patient Time Spent 32 minutes Digitally Signed by BRISEYDA JOHANSEN on 12/28/2022 02:26 PM [facility] CenterWdcbbnnc99-25-0543 Note* Exam Date Time Procedure Performing Provider Status 12/27/22 4:43 PM Echocardiogram, Adult - CV Auth (Verified) [facility] 08-14-2023 Note Date of Service 12.27.22 Chief [...] however she states she follows with a system software developer. and states she is supposed to call [...] by JANI LOPEZ on 12/27/2022 04:29 PM [facility] CenterYizavpsw32-42-5693 Note Date of Service 12.26.22 Chief Complaint [...] however she states she follows with a system software developer. and states she is supposed to call [...] by JANI LOPEZ on 12/26/2022 12:13 PM [facility] CenterCoowbtqx44-47-9322 Note Date of Service 12.25.22 Chief Complaint [...] by JANI LOPEZ on 12/25/2022 03:37 PM [facility] CenterAuyhqfxm86-44-4782 Note Date of Service 12.25.22 Chief Complaint [...] by JANI LOPEZ on 12/25/2022 03:37 PM [facility] CenterNcgxdcde97-88-7876 Orthopaedic surgery Progress note Date of Service [...] AC HIGH DO on 12/25/2022 06:10 AM [facility] CenterKyrqohod46-73-2923 Orthopaedic surgery Progress note Date of Service [...] AC HIGH DO on 12/25/2022 06:10 AM [facility] [facility] [id number] Note ORIGINAL EXAMINATION: TWO XRAY VIEWS OF [...] Sign Date: 12/24/2022 10:54:45 AM Ordering Provider: [facility]08-11-2023 Orthopaedic surgery Progress note Date [...] MATTHEW UMAÑA MD on 12/24/2022 06:39 AM [facility]Xlolwavk20-09-0552 Orthopaedic surgery Progress note Date of Service [...] MATTHEW UMAÑA MD on 12/24/2022 06:39 AM [facility] CenterCcwrtegv75-31-6902 Anesthesiology Consult note Patient: JOSELINE ELLIS Age: [...] CARLITOS MOTT DO on 12/23/2022 02:33 PM [facility] CenterQkgdrfdc96-39-8901 Note ORIGINAL EXAMINATION: SPOT FLUOROSCOPIC IMAGES 12/23/2022 [...] Date: 12/24/2022 8:15:41 AM Ordering Provider: [facility] CenterYszwwdsf95-02-9024 Orthopaedic surgery Consult note Date of Service [...] R hip, knee, and elbow performed at [place] and reviewed. Demonstates a comminuted R IT [...] JOSÉ INIGUEZ MD on 12/23/2022 05:48 AM [facility] CenterWqbrdjex26-38-4032 Anesthesiology Consult note Patient: JOSELINE ELLIS Age: [...] Weight 89.6 kg Weight Lbs 197.1 lb [place] Body Weight 47.85 kg BSA Admission 1.88 [...] records, Reviewed prior records. Assessment and Plan [place] [employer] Anesthesiologists (ASA) physical status classification: [...] GEOFFREY KERN MD on 12/23/2022 08:25 AM [facility] CenterXfwalpxi51-42-7912 Hospital Discharge instructions Follow Up Care 12/22/2022 20:31:14 With:[facility] [phone] Address:Unknown When:1-2 days With:BERNIE REAGAN MD Address: [address] [facility] [place] [phone] When:2-4 days With:JONH LUBIN DO, Orthopedic Address: [address] [place] [address]- When:01/11/2023 14:00:00 Comments:PLEASE ARRIVE 15 MINUTES EARLY [facility] 08-09-2023 History and physical note Date of [...] JULIUS HERNANDES DO on 12/22/2022 09:58 PM [facility] CenterLapkbcae63-73-9948 Orthopaedic surgery Consult note Date of Service [...] R hip, knee, and elbow performed at [place] and reviewed. [place]on[place] a comminuted R IT [...] JOSÉ INIGUEZ MD on 12/23/2022 05:48 AM [facility] CenterKqbieoua63-43-6355 Note ORIGINAL EXAMINATION: ONE XRAY VIEW OF [...] Sign Date: 12/22/2022 7:29:33 PM Ordering Provider: [facility]08-09-2023 Note Sinus rhythm Baseline wander in lead(s) V6 Electronic Signature: GERARD FITCH MD 12/22/2022 18:27:29[facility] 08-09-2023 Note ORIGINAL EXAMINATION: TWO XRAY VIEWS [...] Sign Date: 12/22/2022 6:45:26 PM Ordering Provider: [facility]08-09-2023 Note ORIGINAL EXAMINATION: ONE XRAY VIEW OF [...] Sign Date: 12/22/2022 7:02:52 PM Ordering Provider: [facility]08-09-2023 Evaluation + Plan noteExtracted from: Title:History and [...] home chronic medications 100 cc/hr MIV . [facility] 08-08-2023 History and physical note Author Mango Waddell [facility] December 21, 2022 10:10am Note Date/Time December 21, 2022 10: 10am [facility] [address] [place] [address] H&P Exam - Wound Care 12/21/22 1001 MR#: [id number] Acct: [id number] Name: JOSELINE ELLIS Rep #:[id number] : 1950 72 From: Mango Balbuena [...] of time. 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 The patient has been using silver cell and Alberto wraps. The patient also experiences swelling and edema in her lower extremities. She sleeps in a bed at night. 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 MRSA infection Non-pressure [...] Date Recorded By Document 12/21/22 09:38 MELONIE [id number] 12/21/22 09:51 DL 12/21/22 09:38 WC - Today's Visit Information Type of service Follow-up Visit (Physician/ASSOCIATE MUSIC PROFESSOR ) Arrival Mode Ambulatory, Walker Transfer Assistance [...] Date Recorded By Document 12/21/22 09:38 DL [id number] 12/21/22 09:51 DL 12/21/22 09:38 Wound Center Nurse 1 #7 L Med LE Cluster -Current Size (cm) - Length 9.5 -Current Size (cm) - Width 4.1 -Current Size (cm) - Depth 0.1 -Total Square Cm 38.95 -Photo Taken Yes -Exudate Amt Small -Exudate Type Serosanguineous -Wound Margin Indistinct, Non -Visible -Granulation Amt Large (67-100%) -Granulation Quality [place] -Necrosis Amt Small (1-33%) -Necrotic Tissue Type [...] Attached -Granulation Amt Large (67-100%) -Granulation Quality [place],Red -Necrosis Amt None Present (0 %) -Structure [...] fibrillation (5) Chronic anticoagulation: CODE(S): Z79.01 - 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 (6) Hyperlipidemia: CODE(S): [...] extremities bilaterally. 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 [...] has been encouraged to follow-up with her slusher operator, Dr. Wayne Spencer, relative to a callus on her right great toe, which shows no sign of infection. Total time: 28 minutes 12/21/22 1010 <Electronically signed by Mango Waddell MD> Cosigner Signature (if applicable): CC: ~ Signed [facility] Work Phone: 1(659) 329-381406-27-2023 History and physical note Author Mango Waddell [facility] November 09, 2022 2:32pm Note Date/Time November 09, 2022 2:32 pm [facility] [address] [place] [address] H&P Exam - Wound Care 11/09/22 1425 MR#: [id number] Acct: [id number] Name: JOSELINE ELLIS Rep #:[id number] : 1950 72 From: Mango Balbuena [...] of time. 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 The patient has been using silver cell and Alberto wraps. The patient also experiences swelling and edema in her lower extremities. She sleeps in a bed at night. 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 disease shelter (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 MRSA infection Non-pressure [...] Recorded Date Recorded By Document 10/26/22 09:11 [facility] [id number] 10/26/22 09:22 [facility] Document 11/02/22 11:40 OK [id number] 11/02/22 11:48 OK Document 11/09/22 09:24 [facility] [id number] 11/09/22 09:28 [facility] 10/26/22 11/02/22 11/09/22 09:11 11:40 09:24 - Today's Visit Information Type of service Initial Visit Follow-up Visit Follow-up Visit (Physician/ASSOCIATE MUSIC PROFESSOR (Physician/ASSOCIATE MUSIC PROFESSOR ) ) Arrival Mode Ambulatory, Ambulatory, Ambulatory, [...] & Hygeine No Communication Assessment Preferred language Guinean Gristmill Operator Required No Able to Read Yes Able [...] Date Recorded By Document 10/26/22 09:11 BM[facility] [id number] 10/26/22 09:22 BMF Edit Result 10/26/22 09:11 BMF (1) [id number] 10/26/22 09:33 BMF Document 11/02/22 11:40 AK [id number] 11/02/22 11:48 AK Document 11/09/22 09:24 BMF [id number] 11/09/22 09:28 BMF (1) #5- L GR [...] Date Recorded By Document 10/26/22 11:22 PL [id number] 10/26/22 11:26 PL Document 11/09/22 12:14 PL [id number] 11/09/22 12:15 PL 10/26/22 11/09/22 11:22 12:14 [...] Date Recorded By Document 10/26/22 09:51 MW [id number] 10/26/22 09:54 MW Document 11/02/22 11:40 AK [id number] 11/02/22 11:48 AK Document 11/09/22 09:54 [facility] [id number] 11/09/22 09:54 [facility] 10/26/22 11/02/22 11/09/22 09:51 11:40 09:54 Wound [...] Ambulatory Status Ambulatory, Ambulatory, Walker Walker Transportation [facility] Private Auto Private Auto transportation Medication Reconcilliation [...] fibrillation (5) Chronic anticoagulation: CODE(S): Z79.01 - shelter (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 (6) Hyperlipidemia: CODE(S): [...] extremities bilaterally. 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 Wayne Spencer, relative to a dry, escharous ulceration on herright great toe, which shows no sign of infection. Total time: 28 minutes 11/09/22 1432 <Electronically signed by Mango Waddell MD> Cosigner Signature (if applicable): CC: ~ Signed [facility] Work Phone: 1(959) 891-842906-20-2023 History and physical note Author Mango Waddell [facility] November 02, 2022 12:24pm Note Date/Time November 02, 2022 12:2 4pm [facility] [address] [place] [address] H&P Exam - Wound Care 11/02/22 1213 MR#: [id number] Acct: [id number] Name: JOSELINE ELLIS Rep #:[id number] : 1950 72 From: Mango Balbuena [...] of time. 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 The patient has been using silver cell and Alberto wraps. The patient also experiences swelling and edema in her lower extremities. She sleeps in a bed at night. 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 MRSA infection Non-pressure [...] Recorded Date Recorded By Document 10/26/22 09:11 [facility] [id number] 10/26/22 09:22 [facility] Document 11/02/22 11:40 AK [id number] 11/02/22 11:48 AK 10/26/22 11/02/22 09:11 11:40 - Today's Visit Information Type of service Initial Visit Follow-up Visit (Physician/ASSOCIATE MUSIC PROFESSOR ) Arrival Mode Ambulatory, Ambulatory, Walker Walker [...] & Hygeine No Communication Assessment Preferred language Guinean Gristmill Operator Required No Able to Read Yes Able [...] Recorded Date Recorded By Document 10/26/22 09:11 [facility] [id number] 10/26/22 09:22 [facility] Edit Result 10/26/22 09:11 BM (1) [id number] 10/26/22 09:33 BM Document 11/02/22 11:40 AK [id number] 11/02/22 11:48 AK (1) #5- L GR [...] Date Recorded By Document 10/26/22 11:22 YA [id number] 10/26/22 11:26 PL 10/26/22 11:22 Wound Center [...] Date Recorded By Document 10/26/22 09:51 MW [id number] 10/26/22 09:54 MW Document 11/02/22 11:40 AK [id number] 11/02/22 11:48 AK 10/26/22 11/02/22 09:51 11:40 [...] Stable Stable Ambulatory Status Ambulatory, Walker Transportation [facility] Private Auto transportation Medication Reconcilliation completed & [...] fibrillation (5) Chronic anticoagulation: CODE(S): Z79.01 - shelter (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 (6) Hyperlipidemia: CODE(S): [...] extremities bilaterally. 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 Wayne Spencer, relative to an ulceration on her right great toe. Total time: 28 minutes 11/02/22 1224 <Electronically signed by Mango Waddell MD> Cosigner Signature (if applicable): CC: ~ Signed [facility] Work Phone: 1([phone]) 459-953606-13-2023 History and physical note Author Mango Waddell [facility] October 26, 2022 10:11am Note Date/Time October 26, 2022 9:57 am [facility] [address] [place] [address] H&P Exam - Wound Care 10/26/22 0949 MR#: [id number] Acct: [id number] Name: JOSELINE ELLIS Rep #:[id number] : 1950 72 From: Mango Balbuena [...] of time. 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 The patient has been using silver cell and Alberto wraps. The patient also experiences swelling and edema in her lower extremities. She sleeps in a bed at night. 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 MRSA infection Non-pressure [...] Recorded Date Recorded By Document 10/26/22 09:11 [facility] [id number] 10/26/22 09:22 [facility] 10/26/22 09:11 - Today's Visit Information Type [...] & Hygeine No Communication Assessment Preferred language Guinean Gristmill Operator Required No Able to Read Yes Able [...] Date Recorded By Document 10/26/22 09:11 BMF [id number] 10/26/22 09:22 BMF Edit Result 10/26/22 09:11 BMF (1) [id number] 10/26/22 09:33 BMF (1) #5- L GR [...] fibrillation (5) Chronic anticoagulation: CODE(S): Z79.01 - shelter (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 (6) Hyperlipidemia: CODE(S): [...] extremities bilaterally. 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 Wayne Spencer, relative to an ulceration on her right great toe. Total time: 56 minutes 10/26/22 1011 <Electronically signed by Mango Waddell MD> Cosigner Signature (if applicable): CC: ~ Signed [facility] Work Phone: 1(994) 479-857305-10-2023 Progress note Author Génesis Patel [facility] September 22, 2022 10:49am Note Date/Time September 20, 2022 1:34pm [facility] [address] [address] Progress Note - Wound Care 09/20/22 1334 MR#: [id number] Acct: [id number] Name: JOSELINE ELLIS Rep #:[id number] : 1950 72 From: Génesis guerrero LAND CLASSIFIER LAND CLASSIFIER-C PCP: Dr. Bernie Reagan MD Status:R EG RCR Location: History of Present Illness Date of Service: 09/20/22 Chief Complaint: Right long finger ulcer History of Wound: This 72-year-old white female was seen in the emergency room at [facility] for redness and drainage of a right [...] Charges/Coding Visit Charges Office Visits / Consults: 16038 OV L3 Est Physical Exam Const alert, [...] Recorded Date Recorded By Document 09/20/22 10:45 [facility] [id number] 09/20/22 10:46 [facility] 09/20/22 10:45 - Today's Visit Information Type of service Follow-up Visit (Physician/ASSOCIATE MUSIC PROFESSOR ) Arrival Mode Ambulatory, Walker Patient Identification [...] Recorded Date Recorded By Document 09/20/22 10:45 [facility] [id number] 09/20/22 10:46 [facility] 09/20/22 10:45 Wound Center Nurse 1 #1- [...] Recorded Date Recorded By Document 09/20/22 10:52 [facility] [id number] 09/20/22 10:56 [facility] 09/20/22 10:52 Wound Center Nurse 2 #1- [...] Recorded Date Recorded By Document 09/20/22 10:56 [facility] [id number] 09/20/22 10:57 [facility] 09/20/22 10:56 Is Patient Pain Free? 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 Lopez [facility] September 14, 2022 3:43pm Note Date/Time September 14, 2022 11:24a [facility] Medical Records Department [address] [place] [address] Progress Note 09/14/22 1118 MR#: [id number] Acct: [id number] Name: JOSELINE ELLIS Rep #:[id number] : 1950 72 From: Kisha Lopez MD PCP: Dr. Bernie Reagan MD Status:A DM IN Location: [place] [address] Subjective Subjective Patient seen and examined. He [...] Std Deviation 48.9 H, RDW Coeff of Eze 15.5 H, Plt Count 248, MPV 10.4, Immature Gran % (Auto) 0.300, Neut % (Auto) 59.8, Lymph % (Auto) 27.8, Guthrie % (Auto) 5.2, Eos % (Auto) 6.3 [...] documentation:40 mins Charges/Coding Visit Charges Inpatient E&M: 68283 Subs Hosp L2 09/14/22 1543 <Electronically signed by Kisha Lopez MD> Kisha Lopez MD Cosigner Signature (if applicable): CC: ~ Signed [facility] Work Phone: 1([phone]) 120-921505-02-[address] Lopez [facility] September 14, 2022 3:42pm Note Date/Time September 13, 2022 11:51a m [facility] Medical Records Department [address] [place] [address] Progress Note 09/13/22 1149 MR#: [id number] Acct: [id number] Name: JOSELINE ELLIS Rep #:[id number] : 1950 72 From: Kisha Lopez MD PCP: Dr. Bernie Reagan MD Status:A DM IN Location: [place] [address] Subjective Subjective Patient seen and examined. She [...] documentation:42 mins Charges/Coding Visit Charges Inpatient E&M: 59189 Subs Hosp L2 09/14/22 1542 <Electronically signed by Kisha Lopez MD> Kisha Lopez MD Cosigner Signature (if applicable): CC: ~ Signed [facility] Work Phone: 1([phone]) 860-542505-02-[address] Connor [facility] September 14, 2022 10:12am Note Date/Time September 14, 2022 10:12a m [facility] Medical Records Department [address] [place] [address] Consultation - Cardiology 09/14/22 1004 MR#: [id number] Acct: [id number] Name: JOSELINE ELLIS Rep #:[id number] : 1950 72 From: Yobany Connor MD PCP: Dr. Bernie Reagan MD Status:A DM IN Location: [place] [address] Assessment & Plan Assessment/Plan (1) Paroxysmal atrial [...] on warfarin for her paroxysmal atrial fibrillation. [facility] Medical History Abnormal mammogram of right breast [...] of UTI Hyperlipidemia Irregular heartbeat Kidney disease shelter (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 MRSA infection Non-pressure [...] % (Auto) 59.8, Lymph % (Auto) 27.8, [place]uthrie % (Auto) 5.2, Eos % (Auto) 6.3 [...] % (Auto) 59.8, Lymph % (Auto) 27.8, Guthrie % (Auto) 5.2, Eos % (Auto) 6.3 [...] Cho DO; Dr. Nadja Jasmine DO~ Signed [facility] Work Phone: 1(340) 815-848004-30-[address] Jasmine [facility] September 12, 2022 1:44pm Note Date/Time September 12, 2022 1:4 4pm [facility] Medical Records Department [address] [place] [address] Progress Note - Hospitalist 09/12/22 1340 MR#: [id number] Acct: [id number] Name: JOSELINE ELLIS Rep #:[id number] : 1950 72 From: Nadja Jasmine DO PCP: Dr. Bernie Reagan MD Status:A DM IN Location: [place] [address] Reason for Visit Reason for Visit: Diagnoses [...] does not want to go to a alf facility #2 paroxysmal atrial fibrillation-patient is on [...] 37 minutes Charges/Coding Visit Charges Inpatient E&M: 77626 Subs Hosp L2 09/12/22 1344 <Electronically signed by Nadja Jasmine DO> Cosigner Signature (if applicable): CC: ~ Signed [facility] Work Phone: 1([phone]) 526-654004-29-[address] Jasmine [facility] September 11, 2022 10:56am Note Date/Time September 11, 2022 10: 56am [facility] Medical Records Department [address] [place] [address] Progress Note - Hospitalist 09/11/22 1051 MR#: [id number] Acct: [id number] Name: JOSELINE ELLIS Rep #:[id number] : 1950 72 From: Nadja Jasmine DO PCP: Dr. Bernie Reagan MD Status:A DM IN Location: [place] [address] Reason for Visit Reason for Visit: Diagnoses [...] 36 minutes Charges/Coding Visit Charges Inpatient E&M: 03888 Subs Hosp L2 09/11/22 1056 <Electronically signed by Nadja Jasmine DO> Cosigner Signature (if applicable): CC: ~ Signed [facility] Work Phone: 1([phone]) [phone] Jasmine [facility] September 10, 2022 6:56pm Note Date/Time September 10, 2022 6:4 2pm [facility] System Medical Records Department [address] [place] [address] Progress Note - Hospitalist 09/10/22 1840 MR#: [id number] Acct: [id number] Name: JOSELINE ELLIS Rep #:[id number] : 1950 72 From: Nadja Jasmine DO PCP: Dr. Bernie Reagan MD Status:A DM IN Location: [place] [address] Reason for Visit Reason for Visit: Diagnoses [...] (Auto) 94.9 H, Lymph % (Auto) 3.8L, Guthrie % (Auto) 0.7, Eos % (Auto) 0.0, [...] 37 minutes Charges/Coding Visit Charges Inpatient E&M: 39496 Subs Hosp L2 09/10/22 2781 <Electronically signed by Nadja Jasmine DO> Cosigner Signature (if applicable): CC: ~ Signed [facility] Work Phone: 1(444) 519-792204-27-[address] Cho [facility] September 09, 2022 6:46pm Note Date/Time September 09, 2022 6:3 1pm [facility] Medical Records Department [address] [place] [address] Pharmacokinetic/Renal -Consult 09/09/22 1829 MR#: [id number] Acct: [id number] Name: JOSELINE ELLIS Rep #:[id number] : 1950 72 From: Jose Guadalupe [facility] PCP: Dr. Bernie Reagan MD Status:A DM IN Y Location: [place] [address] Consult Pharmacy has been consulted to manage [...] Date Omayra Cho DO CC: ~ Signed [facility] Work Phone: [phone]) [phone] Frances [facility] September 09, 2022 6:19pm Note Date/Time September 09, 2022 3:3 7pm [facility] Medical Records Department [address] [place] [address] Emergency Department Summary 09/09/22 MR#: [id number] Acct: [id number] Name: JOSELINE ELLIS Rep #:[id number] : 1950 72 From: Krishna Frances DO PCP: Dr. Bernie Reagan MD Status:A DM IN Location: [place] [address] HPI History of Present Illness Chief Complaint: [...] on Coumadin. Denies black or bloody stools. [facility] Medical History Abnormal mammogram of right [...] of UTI Hyperlipidemia Irregular heartbeat Kidney disease shelter (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 MRSA infection Non-pressure [...] 90.4 H Lymph % (Auto) 5.9 L Guthrie % (Auto) 2.2 Eos % (Auto) 0.6 [...] Color Urine Clarity Urine pH Ur Specific [place] Urine Protein Urine Glucose (UA) Urine Ketones [...] (Auto) Neut % (Auto) Lymph % (Auto) Guthrie % (Auto) Eos % (Auto) Baso % [...] Color Urine Clarity Urine pH Ur Specific [place] Urine Protein Urine Glucose (UA) Urine Ketones Urine Occult Blood Urine Nitrite Urine Bilirubin Urine Urobilinogen Ur Leukocyte Esterase Urine RBC Urine WBC Ur Squamous Epith Cells Urine Bacteria Urine Mucus 09/09/22 09/09/22 15:45 16:30 WBC RBC Hgb Hct MCV MCH MCHC RDW Std Deviation RDW Coeff of Zee Plt Count MPV Immature Gran % (Auto) Neut % (Auto) Lymph % (Auto) Guthrie % (Auto) Eos % (Auto) Baso % [...] Clarity Clear Urine pH 6.0 Ur Specific [place] 1.015 Urine Protein 30 H Urine Glucose [...] Discharge Plan Disposition Disposition: Acute Care Hospital [facility] Discharge Date/Time: 09/09/22 17:36 What to do if you have Problems For any increased pain, shortness of breath, bleeding, nausea or vomiting, chestpain, or any unexpected problems, contact your Primary Care Provider. Call [facility] ([phone]) or report to the closest Emergency Room. Call 911 if necessary. 09/09/221818 <Electronically signed by Krishna Frances DO> Cosigner Signature (if applicable): CC: Dr. Bernie Reagan MD ~ Signed [facility] Work Phone: 1(114) [phone] History and physical note Author Dr. Cho [facility] September 09, 2022 5:38pm Note Date/Time September 09, 2022 5:1 1pm [facility] Medical Records Department [address] [place] [address] H&P Exam - Hospitalist 09/09/22 1706 MR#: [id number] Acct: [id number] Name: JOSELINE ELLIS Rep #:[id number] 8 : 1950 72 From: Omayra Cho DO PCP: Dr. Bernie Reagan MD Status:A DM IN Location: [facility] [id number] 1 HPI - General General Date of Admission: 09/09/22 Date of Service: 09/09/22 Chief Complaint: Shortness of breath HPI Narrative JOSELINE ELLIS, is a 72 F who presented to the emergency department at [facility] on 09/09/2022 with a chief complaint of [...] 1.29 which is her baseline. Serum glucose wfh302. Her lactic acid was 2.7. Liver functions normal. Troponin was 11. BNP was 272.2 however this is dramatically improved from her most recent admission earlier this month. At that time her BNP was greater than 700. 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 EKG shows normal sinus rhythm without any ST-T wave changes concerning for acute ischemia and intervals are normal. Chest x-ray shows bilateral patchy multifocal infiltrates in both lung cunha. 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 Bernie Reagan MD; Dr. Omayra Cho DO~ Signed [facility] Work Phone: [phone]) 180-569804-24-[address] Manzano [facility] September 06, 2022 4:49pm Note Date/Time September 06, 2022 12: 21pm [facility] Medical Records Department [address] [place] [address] Emergency Department Summary 09/06/22 MR#: [id number] Acct: [id number] Name: JOSELINE ELLIS Rep #:[id number] 4 : 1950 72 From: Tj Manzano [...] symptoms. No travel out of the area. [facility] Medical History Abnormal mammogram of right [...] of UTI Hyperlipidemia Irregular heartbeat Kidney disease shelter (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 MRSA infection Non-pressure [...] (2,000 unit) capsule 50 mcg PO DAILY mmekfay27/19/22 [History Last Taken 07/08/22] glimepiride 4 mg [...] (Auto) 70.1 H Lymph % (Auto) 19.7 Guthrie % (Auto) 5.7 Eos % (Auto) 3.6 [...] Sl. Cloudy Urine pH 8.0 Ur Specific [place] 1.010 Urine Protein 30 H Urine Glucose [...] cbc, esr, and vanc trough. Fax to [phone] routine picc care per protocol diltiazem HCl [...] MD [Primary Care Provider] - (And/or your system software developer withinthe next week) Disposition Disposition: Home, Self Care What to do if you have Problems For any increased pain, shortness of breath, bleeding, nausea or vomiting, chestpain, or any unexpected problems, contact your Primary Care Provider. Call [facility] ([phone]) or report to the closest Emergency Room. Call 911 if necessary. 09/06/22 6529 <Electronically signed by Tj Manzano MD> Cosigner Signature (if applicable): CC: Dr. Bernie Reagan MD ~ Signed [facility] Work Phone: 1(168) 592-214504-03-[address] Lopez [facility] August 16, 2022 2:13pm Note Date/Time August 16, 2022 2:13 pm [facility] Medical Records Department [address] [place] [address] [place] [address] Instructions for Home/Discharge Instructions 08/16/22 1413 MR#: [id number] Acct: [id number] Name: JOSELINE ELLIS Rep #:[id number] 4 : 1950 72 From: Kisha Lopez [...] cbc, esr, and vanc trough. Fax to [phone] routine picc care per protocol glimepiride 4 [...] Qty: 180 3RF Referrals / Follow Up: [facility] [Provider Group] - Within 1 [...] MD; Dr. Anu James MD ~ Signed [facility] Work Phone: [phone]) 675-952204-03-2023 Discharge summary Author [facility] August 16, 2022 1:54pm Note Date/Time August 16, 2022 1:53 pm [facility] Medical Records Department [address] [place] [address] Transfer to [facility] MR#: [id number] Acct: [id number] Name: JOSELINE ELLIS Rep #:[id number] 6 : 1950 72 From: Kisha Lopez MD PCP: Dr. Bernie Reagan MD Status:A DM IN Certification of patient admission REQUIRED AT TIME OF ADMISSION. I CERTIFY THAT POST-HOSPITAL ECF SERVICES ARE REQUIRED TO BE GIVEN ON AN IN-PATIENT BASIS BECAUSE OF THE ABOVE NAMED PATIENT'S NEED FOR CARE HOME CARE ON A CONTINUING BASIS FOR THE [...] cbc, esr, and vanc trough. Fax to [phone] routine picc care per protocol glimepiride 4 [...] Qty: 180 3RF Referrals / Follow Up: [facility] [Provider Group] - Within 1 Month Bernie Reagan MD [Primary Care Provider] - 09/01/22 10:45 am Reji Morocho MD [Med Staff - Active Staff] - Within 2 Weeks Génesis Patel NP, NP-C [Med Staff - Adv Practice Prof] - 08/16/22 2:15 pm Disposition Disposition (needs filled in before D/C Order can be placed): Home Health Service 08/16/22 1706 <Electronically signed by Kisha Lopez MD> Cosigner Signature (if applicable): CC: Dr. Bernie Regaan MD; Dr. Wale Jacobsen DO; Dr. Nicholas Delvalle MD; Dr. Anu James MD ~ [facility] Work Phone: [phone]) 317-910604-03-2023 Consult note Author Wale Estes [facility] August 15, 2022 11:11pm Note Date/Time August 15, 2022 11:1 1pm [facility] Medical Records Department [address] [place] [address] Pharmacokinetic/Renal -Consult 08/15/222307 MR#: [id number] Acct: [id number] Name: JOSELINE ELLIS Rep #:[id number] 2 : 1950 72 From: Wale Estes PCP: Dr. Bernie Reagan MD Status:A DM IN Y Location: [place] [address] Consult Pharmacy has been consulted to manage [...] (if applicable): Date ____ CC: ~ Signed [facility] Work Phone: 1(648) 153-973204-02-[address] Jacobsen [facility] August 15, 2022 12:35pm Note Date/Time August 15, 2022 12:3 5pm [facility] Medical Records Department [address] [place] [address] Progress Note - Hospitalist 08/15/22 1233 MR#: [id number] Acct: [id number] Name: JOSELINE ELLIS Rep #:[id number] 3 : 1950 72 From: Wale Jacobsen DO PCP: Dr. 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 Charges/Coding Visit Charges Inpatient E&M: 56493 Subs Hosp L2 08/15/22 1237 <Electronically signed by Wale Jacobsen DO> Cosigner Signature (if applicable): CC: ~ Signed [facility] Work Phone: 1(671) 150-439404-02-[address] Jacobsen [facility] August 15, 2022 10:54am Note Date/Time August 15, 2022 10:5 4am [facility] Medical Records Department [address] [place] [address] Discharge Summary 08/15/22 1053 MR#: [id number] Acct: [id number] Name: JOSELINE ELLIS Rep #:[id number] 3 : 1950 72 From: Wale Jacobsen DO PCP: Dr. Bernie Reagan MD Status:A DM IN Location: [place] [address] Providers Date of Admission: 08/11/22 Primary Care Physician: Dr. 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 Fax to [phone] routine picc care per protocol glimepiride 4 [...] Qty: 180 3RF Referrals / Follow Up: [facility] [Provider Group] - Within 1 Month Bernie Reagan MD [Primary Care Provider] - 09/01/22 10:45 am Reji Morocho MD [Med Staff - Active Staff] - Within 2 Weeks Génesis Patel NP, LAND CLASSIFIER-C [Med Staff - Adv Practice Prof] - 08/16/22 2:15 pm Disposition Disposition (needs filled in before D/C Order can be placed): Home Health Service Charges/Coding Visit Charges Inpatient E&M: 82175 Disch Hosp 08/15/22 1054 <Electronically signed by Wale Jacobsen DO> Cosigner Signature (if applicable): CC: Dr. Bernie Reagan MD; Dr. Wale Jacobsen DO~ Signed [facility] Work Phone: 1(130) 182-890004-02-[address] Jacobsen [facility] August 15, 2022 10:53am Note Date/Time August 15, 2022 10:4 4am [facility] Medical Records Department [facility] [place] [address] Instructions for Home/Discharge Instructions 08/15/22 1043 MR#: [id number] Acct: [id number] Name: JOSELINE ELLIS Rep #:[id number] 1 : 1950 72 From: Wale Jacobsen [...] cbc, esr, and vanc trough. Fax to [phone] routine picc care per protocol glimepiride 4 [...] Qty: 180 3RF Referrals / Follow Up: [facility] [Provider Group] - Within 1 Month Bernie Reagan MD [Primary Care Provider] - 09/01/22 10:45 am Reji Morocho MD [Med Staff - Active Staff] - Within 2 Weeks Génesis Patel NP, LAND CLASSIFIER-C [Med Staff - Adv Practice Prof] - 08/16/22 2:15 pm Disposition Disposition (needs filled in before D/C Order can be placed): Home Health Service 08/15/22 1053<Electronically signed by Wale Jacobsen DO>Wale Jacobsen DO CC: Dr. Bernie Reagan MD; Dr. Nicholas Delvalle MD; Dr. Anu James MD ~ Signed [facility] Work Phone: 1(209) 292-777904-01-[address] Jacobsen [facility] August 14, 2022 4:45pm Note Date/Time August 14, 2022 8:02 am [facility] Medical Records Department [address] [place] [address] Progress Note - Hospitalist 08/14/22 0800 MR#: [id number] Acct: [id number] Name: JOSELINE ELLIS Rep #:[id number] 9 : 1950 72 From: Wale Jacobsen DO PCP: Dr. 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 Charges/Coding Visit Charges Inpatient E&M: 64927 Subs Hosp L2 08/14/22 1220 <Electronically signed [...] Cosigner Signature (if applicable): cc: ~* Signed [facility] Work Phone: 1(599) 865-631104-01-2023 Consult note Author Wale Estes [facility] August 14, 2022 12:12am Note Date/Time August 14, 2022 12:1 0am [facility] Medical Records Department [address] [place] [address] Pharmacokinetic/Renal -Consult 08/14/22 0006 MR#: [id number] Acct: [id number] Name: JOSELINE ELLIS Rep #:[id number] 2 : 1950 72 From: Wale Estes PCP: Dr. Bernie Reagan MD Status:A DM IN Y Location: [place] [address] Consult Pharmacy has been consulted to manage [...] Signature (if applicable): Date CC: ~ Signed [facility] Work Phone: [phone]) 798-222203-31-[address] James [facility] August 13, 2022 3:29pm Note Date/Time August 13, 2022 3:1 4pm [facility] Medical Records Department [address] [place] [address] Consultation - Cardiology 08/13/22 1513 MR#: [id number] Acct: [id number] Name: JOSELINE ELLIS Rep #:[id number] 9 : 1950 72 From: Anu aponte MD PCP: Dr. 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 Anu James MD~ Signed [facility] Work Phone: 1(288) 383-206503-31-[address] Jacobsen [facility] August 13, 2022 1:45pm Note Date/Time August 13, 2022 8:3 0am [facility] Medical Records Department [address] [place] [address] Progress Note - Hospitalist 08/13/22821 MR#: [id number] Acct: [id number] Name: JOSELINE ELLIS Rep #:[id number] 7 : 1950 72 From: Wale Jacobsen DO PCP: Dr. 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 Charges/Coding Visit Charges Inpatient E&M: 18553 Subs Hosp L2 08/13/22 1345 <Electronically signed by Wale Jacobsen DO> Cosigner Signature (if applicable): CC: ~ Signed [facility] Work Phone: [phone]) 549-849803-30-[address] Delvalle [facility] August 12, 2022 7:10pm Note Date/Time August 12, 2022 12: 34am [facility] Medical Records Department [address] [facility] [place] [address] Pharmacokinetic/Renal -Consult 08/12/22 0032 MR#: [id number] Acct: [id number] Name: JOSELINE ELLIS Rep #:[id number] 1 : 1950 72 From: Wale Estes PCP: Dr. Bernie Reagan MD Status:A DM IN Y Location: [place] [address] Consult Pharmacy has been consulted to manage [...] Date Nicholas Delvalle MD CC: ~ Signed [facility] Work Phone: [phone]) [phone] History and physical note Author Dr. Delvalle [facility] August 12, 2022 7:09pm Note Date/Time August 11, 2022 10: 34pm [facility] Medical Records Department [address] [place] [address] H&P Exam - Hospitalist 08/11/222231 MR#: [id number] Acct: [id number] Name: JOSELINE ELLIS Rep #:[id number] 4 : 1950 72 From: Nicholas Delvalle MD PCP: Dr. Bernie Reagan MD Status:A DM IN Location: [facility] [id number]- 1 HPI - General General Date of [...] to control her heart rate was unsuccessful. 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 Charges/Coding Visit Charges Inpatient E&M: 02369 Init Hosp L3 08/12/22 0014 <Electronically signed [...] MD; Dr. Nicholas Delvalle MD ~* Signed [facility] Work Phone: 1(245) 554-228203-30-[address] Jacobsen [facility] August 12, 2022 1:58pm Note Date/Time August 12, 2022 8:5 7am [facility] Medical Records Department [address] [place] [address] Progress Note - Hospitalist 08/12/22 0850 MR#: [id number] Acct: [id number] Name: JOSELINE ELLIS Rep #:[id number] 3 : 1950 72 From: Wale Jacobsen DO PCP: Dr. 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 Charges/Coding Visit Charges Inpatient E&M: 45884 Subs Hosp L2 08/12/22 0290 <Electronically signed by Wale Jacobsen DO> Cosigner Signature (if applicable): CC: ~ Signed [facility] Work Phone: [phone]) 608-822503-30-2023 Discharge summary Author Tj Manzano [facility] August 11, 2022 11:42pm Note Date/Time August 11, 2022 4:5 2pm [facility] Medical Records Department [address] [place] [address] Emergency Department Summary 08/11/22 MR#: [id number] Acct: [id number] Name: JOSELINE ELLIS Rep #:[id number] 1 : 1950 72 From: Monty Mota DO PCP: Dr. Bernie Reagan MD Status:A DM IN Location: [facility] [id number]- [address] Tj Manzano MD [...] patient, discussing with consultants for admission. 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 MRSA infection Non-pressure [...] (2,000 unit) capsule 50 mcg PO DAILY xsdzsas16/19/22 [History Last Taken 07/08/22] denosumab 60 mg/mL subcutaneous syringe (Prolia) 60 mg subcut [id number] #1 mL 03/11/22 [Rx Last Taken Unknown] [...] Delivery Method Room Air Room Air MDM [facility] Lab Data Attestation: I reviewed the patient's [...] % (Auto) 64.1 Lymph % (Auto) 20.6 Guthrie % (Auto) 10.0 Eos % (Auto) 4.4 [...] (Auto) Neut % (Auto) Lymph % (Auto) Guthrie % (Auto) Eos % (Auto) Baso % [...] of this plan right now, nursing staff physician for Bed 19 is aware as well [...] cbc, esr, and vanc trough. Fax to [phone] routine picc care per protocol ciprofloxacin HCl 500 mg Tablet 500 mg PO BID 10 Days Qty: 20 0RF aspirin 81 mg Tablet,Chewable 81 mg PO BREAKFAST Qty: 0 0RF Prolia 60 mg/mL syringe 60 mg subcut [id number] Qty: 1 1RF glimepiride 4 mg tablet [...] your Primary Care Provider. Call [facility] ([phone]) or report to the closest Emergency Room. Call 911 if necessary. 08/11/222216 <Electronically signed by Monty Mota DO> Cosigner Signature (if applicable): CC: Dr. Bernie Reagan MD ~ Signed [facility] Work Phone: [phone]) [phone] Discharge summary Author Tj Manzano [facility] August 11, 2022 11:42pm Note Date/Time August 11, 2022 4:5 2pm [facility] Medical Records Department [address] [place] [address] Emergency Department Summary 08/11/22 MR#: [id number] Acct: [id number] Name: JOSELINE ELLIS Rep #:[id number] 1 : 1950 72 From: Monty Moat DO PCP: Dr. Bernie Reagan MD Status:A DM IN Location: [facility] [id number]- [address] 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 Labs: Laboratory Results - last 24 hr 08/11/22 08/11/22 08/11/22 17:06 17:06 17:06 WBC 4.3 L RBC 4.00 L Hgb 11.0 L Hct 35.0 L MCV 87.5 MCH 27.5 MCHC 31.4 L RDW Std Deviation 49.7 H RDW Coeff of Eze 15.7 H Plt Count 256 MPV 9.9 Immature Gran % (Auto) 0.200 Neut % (Auto) 64.1 Lymph % (Auto) 20.6 Guthrie % (Auto) 10.0 Eos % (Auto) 4.4 [...] (Auto) Neut % (Auto) Lymph % (Auto) Guthrie % (Auto) Eos % (Auto) Baso % [...] 16:26 EDT Reading Location ID and State: [facility] / [place] , Service support , EKG Initial EKG: [...] of this plan right now, nursing staff physician for Bed 19 is aware as well [...] Dr. Delvalle will place the order. Dr. aMnzano will place for admission and finish the [...] cbc, esr, and vanc trough. Fax to [phone] routine picc care per protocol ciprofloxacin HCl 500 mg Tablet 500 mg PO BID 10 Days Qty: 20 0RF aspirin 81 mg Tablet,Chewable 81 mg PO BREAKFAST Qty: 0 0RF Prolia 60 mg/mL syringe 60 mg subcut [id number] Qty: 1 1RF glimepiride 4 mg tablet [...] Primary Care Provider: Bernie Reagan Referrals: Bernie Regaan MD [Primary Care Provider] - Disposition Disposition: Acute Care Hospital What to do if you have Problems For any increased pain, shortness of breath, bleeding, nausea or vomiting, chestpain, or any unexpected problems, contact your Primary Care Provider. Call [facility] ([phone]) or report to the closest Emergency Room. Call 911 if necessary. 08/11/222216 <Electronically signed by Monty Mota DO> Cosigner Signature (if applicable): CC: Dr. Bernie Reagan MD ~ Signed [facility] Work Phone: 1(254) 114-595103-20-2023 Progress note Author Génesis Patel [facility] August 02, 2022 3:00pm Note Date/Time August 02, 2022 2:5 6pm [facility] [address] [place] [address] Progress Note - Wound Care 08/02/22 1456 MR#: [id number] Acct: [id number] Name: JOSELINE ELLIS Rep #:[id number] 2 : 1950 72 From: Génesis Gabriel LAND CLASSIFIER LAND CLASSIFIER-C PCP: Dr. Bernie Reagan MD Status:R EG RCR Location: History of Present Illness Date of Service: 08/02/22 Chief Complaint: Right long finger ulcer History of Wound: This 72-year-old white female was seen in the emergency room at [facility] for redness and drainage of a right [...] Index (BMI) 34.9 Charges/Coding Procedures Integumentary 111xxx-113xx: 31765 Global Visit Debridement Note Debridement Note Wound [...] Recorded Date Recorded By Document 07/19/22 13:32 [facility] [id number] 07/19/22 13:39 BMF Document 07/26/22 15:07 DL [id number] 07/26/22 15:13 DL Edit Result 07/26/22 15:07 DL (1) [id number] 07/26/22 15:18 DL Document 08/02/22 14:34 BMF [id number] 08/02/22 14:37 BMF (1) Finger Stick Blood [...] service Initial Visit Follow-up Visit Follow-up Visit (Physician/ASSOCIATE MUSIC PROFESSOR (Physician/ASSOCIATE MUSIC PROFESSOR ) ) Arrival Mode Ambulatory, Ambulatory, Ambulatory, [...] Yes Yes 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 Able to Read Yes Able [...] in Ability to Perform Denies Any Declines Culture/Denominational/Staffing Coordinator Cultural/Denominational Needs that may affect No Treatment Plan Teaching: Wound Center *Welcome to the Wound Center -Person Taught Patient,Family -Teaching Method Discussion -Response to teaching Verbalize understanding Welcome to the Wound Care Center Hong Konger WC - Nurse 1 - General Ulcer Measurement Start: 07/19/22 13:32 Freq: Status: Active Protocol: Activity Type Activity Date Activity User E-sign Co-sign Detail Recorded Client Recorded Date Recorded By Document 07/19/22 13:32 BMF [id number] 07/19/22 13:39 BMF Document 07/26/22 15:07 DL [id number] 07/26/22 15:13 DL Edit Result 07/26/22 15:07 DL (1) [id number] 07/26/22 15:18 DL Document 08/02/22 14:34 BMF [id number] 08/02/22 14:37 BMF (1) #1- R 3RD [...] (67-100%) Small (1-33%) Large (67-100%) -Granulation Quality [place] Red -Slough/Fibrin Yes No -Necrosis Amt Small [...] Recorded Date Recorded By Document 07/19/22 14:16 [id number] 07/19/22 14:21 Document 07/26/22 15:29 [id number] 07/26/22 15:33 Document 08/02/22 14:49 [id number] 08/02/22 14:50 07/19/22 07/26/22 08/02/22 14:16 15:29 [...] Recorded Date Recorded By Document 07/19/22 14:31 [facility] [id number] 07/19/22 14:31 [facility] Document 07/26/22 15:43 DL [id number] 07/26/22 15:44 DL 07/19/22 07/26/22 14:31 15:43 Wound Care Center Nurse 3 #1- R 3RD FINGER (POST OP) -Ulcer Cleansing Rinsed/ Rinsed/ Irrigated with Irrigated with Saline Saline -Foul Odor after Cleansing No No -Primary Dressing Applied Silvercel Silvercel -Other Dressing TOPPED W/ SPANDAGE/COBAN; DRSG PER [place] FAMILY SPECIALIST -Primary Dressing Covered/Secured with Secured with [...] hand: CODE(S): M86.9 - Osteomyelitis, unspecified (3) shelter (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: CODE(S): Z79.01 - shelter (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 (4) MRSA infection: [...] 08/02/22 1500 <Electronically signed by Génesis Patel LAND CLASSIFIER LAND CLASSIFIER-C> Cosigner Signature (if applicable): CC: ~ Signed [facility] Work Phone: 1(730) 349-295503-20-2023 Progress note Author Génesis Patel [facility] August 02, 2022 2:56pm Note Date/Time July 26, 2022 3:4 2pm [facility] [address] [place] [address] Progress Note - Wound Care 07/26/22 1542 MR#: [id number] Acct: [id number] Name: JOSELINE ELLIS Rep #:[id number] : 1950 72 From: Génesis guerrero NP LAND CLASSIFIER-C PCP: Dr. Bernie Reagan MD Status:R EG RCR Location: WC ADDENDUM by LAND CLASSIFIER-C Génesis Patel on 08/02/22 at 1456 Addendum Debridement was into the muscle. 08/02/22 1456<Electronically signed by Génesis Patel LAND CLASSIFIER LAND CLASSIFIER-C> Cosigner Signature (if applicable): cc: ~* Signed History of Present Illness Date of Service: 07/26/22 Chief Complaint: Right long finger ulcer History of Wound: This 72-year-old white female was seen in the emergency room at [facility] for redness and drainage of a right [...] Index (BMI) 34.9 Charges/Coding Procedures Integumentary 111xxx-113xx: 21555 Global Visit Debridement Note Debridement Note Wound [...] Date Recorded By Document 07/19/22 13:32 BMF [id number] 07/19/22 13:39 BMF Document 07/26/22 15:07 DL [id number] 07/26/22 15:13 DL Edit Result 07/26/22 15:07 DL (1) [id number] 07/26/22 15:18 DL (1) Finger Stick Blood [...] Type of service Initial Visit Follow-up Visit (Physician/ASSOCIATE MUSIC PROFESSOR ) Arrival Mode Ambulatory, Ambulatory, Walker Walker [...] Free? Yes 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 Able to Read Yes Able [...] in Ability to Perform Denies Any Declines Culture/Denominational/Staffing Coordinator Cultural/Denominational Needs that may affect No Treatment Plan [...] Recorded Date Recorded By Document 07/19/22 13:32 [facility] [id number] 07/19/22 13:39 BM Document 07/26/22 15:07 DL [id number] 07/26/22 15:13 DL Edit Result 07/26/22 15:07 DL (1) [id number] 07/26/22 15:18 DL (1) #1- R 3RD [...] Amt Large (67-100%) Small (1-33%) -Granulation Quality [place] -Slough/Fibrin Yes -Necrosis Amt Small (1-33%) Small [...] Recorded Date Recorded By Document 07/19/22 14:16 [id number] 07/19/22 14:21 Document 07/26/22 15:29 [id number] 07/26/22 15:33 07/19/22 07/26/22 14:16 15:29 Wound [...] Recorded Date Recorded By Document 07/19/22 14:31 [facility] [id number] 07/19/22 14:31 [facility] 07/19/22 14:31 Wound Care Center Nurse 3 #1- R 3RD FINGER (POST OP) -Ulcer Cleansing Rinsed/ Irrigated with Saline -Foul Odor after Cleansing No -Primary Dressing Applied Silvercel -Other Dressing TOPPED W/ SPANDAGE/COBAN; DRSG PER [place] FAMILY SPECIALIST -Primary Dressing Covered/Secured with Secured with [...] hand: CODE(S): M86.9 - Osteomyelitis, unspecified (3) 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: CODE(S): Z79.01 - 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 (4) MRSA infection: [...] 08/01/222132 <Electronically signed by Génesis Patel NP LAND CLASSIFIER-C> Cosigner Signature (if applicable): CC: ~ Signed [facility] Work Phone: 1(426) 925-520503-12-2023 History and physical note Author Génesis Patel [facility] July 25, 2022 6:37pm Note Date/Time July 19, 2022 3:42 pm [facility] [address] [place] [id number] H&P Exam - Wound Care 07/19/22 1541 MR#: [id number] Acct: [id number] Name: JOSELINE ELLIS Rep #:[id number] : 1950 72 From: Génesis Gabriel STACY LAND CLASSIFIER-C PCP: Dr. Bernie Reagan MD Status:R [facility] Location: History of Present Illness Date of Service: 07/19/22 Chief Complaint: Right long finger ulcer History of Wound: This 72-year-old white female was seen in the emergency room at [facility] for redness and drainage of a right [...] exposure She is tolerating dressing changes well. [facility] Medical History Abnormal mammogram of right breast [...] (hypertension) Hyperlipidemia Hypertension Irregular heartbeat Kidney disease shelter (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 MRSA infection Non-pressure [...] (2,000 unit) capsule 50 mcg PO DAILY hdispyb04/19/22 [History Last Taken 07/08/22] denosumab 60 mg/mL subcutaneous syringe (Prolia) 60 mg subcut [id number] #1 mL 03/11/22 [Rx Last Taken Unknown] [...] Recorded Date Recorded By Document 07/19/22 13:32 [facility] [id number] 07/19/22 13:39 [facility] 07/19/22 13:32 - Today's Visit Information Type [...] Pain Free? 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 Able to Read Yes Able [...] in Ability to Perform Denies Any Declines Culture/Denominational/Staffing Coordinator Cultural/Denominational Needs that may affect No Treatment Plan Teaching: Wound Center *Welcome to the Wound Center -Person Taught Patient,Family -Teaching Method Discussion -Response to teaching Verbalize understanding Welcome to the Wound Care Center Hong [place]er WC - Nurse 1 - General Ulcer Measurement Start: 07/19/22 13:32 Freq: Status: Active Protocol: Activity Type Activity Date Activity User E-sign Co-sign Detail Recorded Client Recorded Date Recorded By Document 07/19/22 13:32 [facility] [id number] 07/19/22 13:39 [facility] 07/19/22 13:32 Wound Center Nurse 1 #1- [...] Attached -Granulation Amt Large (67-100%) -Granulation Quality [place] -Slough/Fibrin Yes -Necrosis Amt Small (1-33%) -Necrotic [...] Recorded Date Recorded By Document 07/19/22 14:16 [id number] 07/19/22 14:21 07/19/22 14:16 Wound Center Nurse [...] Recorded Date Recorded By Document 07/19/22 14:31 [facility] [id number] 07/19/22 14:31 [facility] 07/19/22 14:31 Wound Care Center Nurse 3 #1- R 3RD FINGER (POST OP) -Ulcer Cleansing Rinsed/ Irrigated with Saline -Foul Odor after Cleansing No -Primary Dressing Applied Silvercel -Other Dressing TOPPED W/ SPANDAGE/COBAN; DRSG PER [place] FAMILY SPECIALIST -Primary Dressing Covered/Secured with Secured with Tape -Silvercel 1 Treatment Response Procedure Tolerated Well Pain Scale: 0-10 Numeric Is Patient Pain Free? 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 Stout on 07/20/21 Therapy Diagnosis: Rank Code Description 1 R26.2 Difficulty in walking, not elsewhere classified 2 R26.81 Unsteadiness on feet Demographics: Age: 71Y Gender: Female Primary Language: Hong Konger Preferred Language: Hong Konger Referring Service/Team: Orthopedics Past Medical History: Past Medical History Diabetes Atrial fibrillation HTN CVA breast lump Osteopenia History of right distal humerus fracture Past Surgical History ORIF right humerus History of Present Illness: Date of Surgery: 07/20/21 Additional Information: Patient is a 71-year-old female with a past medical history significant for hypertension, hyperlipidemia, diabetes, paroxysmal A. fib who is being admitted to [facility] for removal of antibiotic spacer and right [...] to see for medical management. copied from [facility] Date of Admission: 07/20/2021 7:39:00 AM [facility] PATIENT NAME: JOSELINE ELLIS [address] [place] MEDICAL REC #: [id number] [place] [address] ADMIT DATE: SERVICE DATE: 07/21/21 Physical Therapy [...] no children. Employment Status: retired Recreational Activities/Hobbies: [employer] OBJECTIVE Cognitive Screen Responsiveness: Alert. Orientation: Oriented to person, place, time, and situation. Following Commands: Patient is able to follow 3-step commands. [facility] PATIENT NAME: JOSELINE ELLIS [address] [place] MEDICAL REC #: [id number] [place] [address] ADMIT DATE: SERVICE DATE: 07/21/21 Physical Therapy [...] Patient was minimal ass (more content not included)...[facility]03-08-2022 NoteOccupational Therapy Inpatient Evaluation Medical Diagnosis: antibiotic spacer placement on 04/13/2021 s/p removal of antibiotic spacer and right total elbow by Dr. Stout on 07/20/21 OCCUPATIONAL PROFILE AND HISTORY Therapy Diagnosis: Rank Code Description 1 Z74.1 Need for assistance with personal care Demographics: Age: 71Y Gender: Female Primary Language: [place]er Preferred Language: Hong Konger Referring Service/Team: Orthopedics Past Medical History: Past Medical History Diabetes Atrial fibrillation HTN CVA breast lump Osteopenia History of right distal humerus fracture Past Surgical History ORIF right humerus History of Present Illness: Date of Surgery: 07/20/2021 Additional Information: Patient is a 71-year-old female with a past medical history significant for hypertension, hyperlipidemia, diabetes, paroxysmal A. fib who is being admitted to [facility] for removal of antibiotic spacer and right [...] to see for medical management. copied from [facility] Date of Admission: 07/20/2021 7:39:00 AM [facility] PATIENT NAME: JOSELINE ELLIS [address] [place] MEDICAL REC #: [id number] [place] [address] ADMIT DATE: SERVICE DATE: 07/21/21 Occupational Therapy [...] short distances with a [facility] at the [facility]. She repots using a w/c for long [...] Repositioned patient. Home Environment: pt residing at [facility]. Equipment Owned: [employer], w/c Marital Status: W Social History: Children: Patient has no children. Employment Status: retired Recreational Activities/Hobbies: [employer] OBJECTIVE/OCCUPATIONAL PERFORMANCE Activities of Daily Living Current Status Previous Status ADLs Feeding Supervision - Grooming Minimal assistance - Bathing-UE Maximal assistance - Bathing-LE Maximal assistance - Dressing-UE Maximal assistance - Dressing-LE Maximal assistance - Toileting Maximal assistance - AM-PAC Daily Activities: [facility] PATIENT NAME: JOSELINE ELLIS [address] [place] MEDICAL REC #: [id number] [place] [address] ADMIT DATE: SERVICE DATE: 07/21/21 Occupational Therapy [...] Range of Motion Uppe (more content not included)...[facility]12-03-2021 Note [facility]11-30-2021 NoteOccupational Therapy Inpatient Evaluation Medical Diagnosis: s/p Removal of hardware right distal humerus, irrigation debridement of skin subcutaneous tissue muscle and bone right arm with cultures, placement antibiotic spacer right distal humerus by Dr. Stout on 04/13/2021 OCCUPATIONAL PROFILE AND HISTORY Therapy Diagnosis: Rank Code Description 1 Z74.1 Need for assistance with personal care Demographics: Age: 71Y Gender: Female Primary Language: Hong Konger Preferred Language: Hong Konger Referring Service/Team: Orthopedics Past Medical History: Past [...] distal humeral fracture by Dr. Guy in [place] several weeks ago. Patient was found to [...] Rehabilitation Precautions/Restrictions: NWB RUE, sling, fall risk [facility] PATIENT NAME: JOSELINE ELLIS [address] [place] MEDICAL REC #: [id number] [place] [address] ADMIT DATE: SERVICE DATE: 04/14/21 Occupational Therapy [...] = 32.03 and G-Code Modifier = CL [facility] PATIENT NAME: JOSELINE ELLIS [address] [place] MEDICAL REC #: [id number] [place] [address] ADMIT DATE: SERVICE DATE: 04/14/21 Occupational Therapy [...] wall on R side (more content not included)...[facility]11-30-2021 NotePhysical Therapy Inpatient Evaluation Medical Diagnosis: s/p Removal of hardware right distal humerus, irrigation debridement of skin subcutaneous tissue muscle and bone right arm with cultures, placement antibiotic spacer right distal humerus by Dr. Stout on 04/13/2021 Therapy Diagnosis: Rank Code Description 1 R26.81 Unsteadiness on feet 2 R26 Abnormalities of gait and mobility Demographics: Age: 71Y Gender: Female Primary Language: Hong Konger Preferred Language: Hong Konger Referring Service/Team: Medicine Orthopedics Past Medical History: [...] distal humeral fracture by Dr. Guy in [place] several weeks ago. Patient was found to [...] of Admission: 04/13/2021 5:48:00 AM Rehabilitation Precautions/Restrictions: [facility] PATIENT NAME: JOSELINE ELLIS [address] [place] MEDICAL REC #: [id number] [place] [address] ADMIT DATE: SERVICE DATE: 04/14/21 Physical Therapy [...] Oriented to person, place, time, and situation. [facility] PATIENT NAME: JOSELINE ELLIS [address] [place] MEDICAL REC #: [id number] [place] [address] ADMIT DATE: SERVICE DATE: 04/14/21 Physical Therapy [...] trunk elevation and steadyi (more content not included)...[facility]10-09-2009 History of Past illness Narrative* Problem Noted Date Resolved Date Hyperglycemia 02/21/2009 01/27/2013 documented as of this encounter (statuses as of 07/21/2021) [facility] note Author Dr. Guzman [facility] July 09, 2022 6:13pm Note Date/Time July 09, 2022 6:11pm [facility] Medical Records Department [address] [place] [place] [address] Pharmacokinetic/Renal -Consult 07/09/221809 MR#: [id number] Acct: [id number] Name: JOSELINE ELLIS Rep #:[id number] : 1950 72 From: Az Regan PCP: Dr. Bernie Reagan MD Status:A DM IN Y Location: [place]3 [id number] Consult Pharmacy has been consulted to manage [...] _ Az Regan 07/09/221812 <Electronically signed by Durga Guzman MD> Cosigner Signature (if applicable): Date Durga Guzman MD CC: ~ Signed [facility] Work Phone: Discharge summary Author Dr. Lopez [facility] September 15, 2022 11:50am Note Date/Time September 15, 2022 11:49a [facility] Medical Records Department [address] [place] [address] Instructions for Home/Discharge Instructions 09/15/22 1147 MR#: [id number] Acct: [id number] Name: JOSELINE ELLIS Rep #:[id number] : 1950 72 From: Kisha Lopez [...] Care 09/15/22 1150<Electronically signed by Kisha Lopez MD>iKsha Lopez MD CC: Dr. Yobany Connor MD; Dr. Benrie Reagan MD; Dr. Omayra Cho DO; Dr. Nadja Jasmine, DO ~ Signed [facility] Work Phone: Evaluation + Plan note Future Appointments [facility] Evaluation + Plan note Future Appointments Appointment Date:08/18/2023 01:45:00 PM Scheduled Provider: Location:[facility] Appointment Type:[facility] Hospital Follow Up [facility] Evaluation + Plan note Future Appointments Appointment Date:02/23/2024 01:30:00 PM Scheduled Provider: Location:[facility] Appointment Type:CV OV Future Scheduled Tests Laboratory* A1C Hemoglobin 10/22/23 * Complete Blood Count 10/22/23 * Lipid Profile 10/22/23 * Complete Metabolic Panel 10/22/23 [facility] evalujlryt noteNo assessment information available [facility] Work Phone: Evaluation note* Diagnosis Onset Date Resolution Status Acute GI bleeding acute Acute UTI acute Lower GI bleed acute Weakness acute [facility] Work Phone: Evaluation note* Diagnosis Onset Date Resolution Status Acute GI bleeding resolved Acute UTI resolved Lower GI bleed resolved [facility] Work Phone: Evaluation note* Diagnosis Onset Date Resolution Status Acute GI bleeding resolved Acute UTI resolved Lower GI bleed resolved Burn injury of skin of finger acute Closed fracture of right elbow acute Osteoporosis chronic Type II diabetes mellitus [facility] Work Phone: Evaluation note* Diagnosis Onset Date Resolution Status Burn injury of skin of finger acute Closed fracture of right elbow acute Osteoporosis chronic Type II diabetes mellitus [facility] Flu vaccine need acute Essential hypertension chron ic Osteoporosis chronic Type II diabetes mellitus ch ronic Urinary incontinence, overflow chronic [facility] Work Phone: Evaluation note* Diagnosis Onset Date Resolution Status Flu vaccine need acute Essential hypertension chron ic Osteoporosis chronic Type II diabetes mellitus ch ronic Urinary incontinence, overflow chronic Health care maintenance acut e Essential hypertension chron ic Type II diabetes mellitus ch ronic Urinary incontinence, overflow chronic [facility] Work Phone: Evaluation note* Diagnosis Onset Date Resolution Status Health care maintenance acut e Essential hypertension chron ic Type II diabetes mellitus ch ronic Urinary incontinence, overflow chronic [facility] Work Phone: Evaluation note* Diagnosis Onset Date Resolution Status Health care maintenance acut e Essential hypertension chron ic Type II diabetes mellitus ch ronic Urinary incontinence, overflow chronic Acute kidney injury acute Bacteremia acute Cellulitis of right middle finger acute Finger infection acute [facility] Work Phone: Evaluation note* Diagnosis Onset Date Resolution Status Health care maintenance acut e Essential hypertension chron ic Type II diabetes mellitus ch ronic Urinary incontinence, overflow chronic Abscess of right middle finger acute Acute kidney injury acute Bacteremia acute Cellulitis of right middle finger acute Finger infection acute MRSA infection acute Diabetes chronic 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 [id number] chronic 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 shine d chronic [facility] Work Phone: Evaluation note* Diagnosis Onset Date Resolution Status Health care maintenance acut e Essential hypertension chron ic Type II diabetes mellitus ch ronic Urinary incontinence, overflow chronic Abscess of right middle finger acute MRSA infection acute Diabetes chronic shelter (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 chronic 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 Cerumen impaction acute 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 chronic 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 [facility] Work Phone: Evaluation note* Diagnosis Onset Date Resolution Status Health care maintenance acut e Essential hypertension chron ic Type II diabetes mellitus ch ronic Urinary incontinence, overflow chronic Abscess of right middle finger acute MRSA infection acute Diabetes 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 chronic 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 Cerumen impaction acute 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 chronic 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 MRSA infection acute Skin ulcer of finger acute Diabetes chronic shelter (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 chronic 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 Type II diabetes mellitus ch [facility] Work Phone: Evaluation note* Diagnosis Onset Date Resolution Status Health care maintenance acut e Essential hypertension chron ic Type II diabetes mellitus ch ronic Urinary incontinence, overflow chronic Abscess of right middle finger acute MRSA infection acute Diabetes 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 chronic 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 Cerumen impaction acute 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 chronic 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 MRSA infection acute Skin ulcer of finger acute Diabetes chronic shelter (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 chronic 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 Type II diabetes mellitus ch ronic Atrial fib/flutter, transient acute Atrial flutter with rapid ventricular response acute Dehydration acute Diarrhea acute Hypercoagulable state due to atrial fibrillation acute MRSA infection acute Occluded PICC line acute Paroxysmal atrial fibrillation with RVR acute Skin ulcer of finger acute 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 chronic 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 [facility] Work Phone: Evaluation note* Diagnosis Onset Date [...] ronic Skin ulcer of finger resolve d [facility] Work Phone: Evaluation note* Diagnosis Onset Date [...] and chronic respiratory failure with hypoxia chronic [facility] Work Phone: Evaluation note* Diagnosis Onset Date [...] accident) chronic Hypertension chronic Paroxysmal atrial fibrillation [facility] Work Phone: Evaluation note* Diagnosis Onset [...] kidney disease) chronic Respiratory failure noneacti ve [facility] Work Phone: Evaluation note* Diagnosis Onset Date [...] mellitus ch ronic Urinary incontinence, overflow chronic [facility] Work Phone: Evaluation note* Diagnosis Onset Date [...] chronic Essential hypertension chron ic Hyperlipidemia chronic [facility] Work Phone: Evaluation note* Diagnosis Onset Date [...] mellitus ch ronic Urinary incontinence, overflow chronic [facility] Work Phone: Evaluation note* Diagnosis Onset Date [...] mellitus ch ronic Urinary incontinence, overflow chronic [facility] Work Phone: Evaluation note* Diagnosis Onset Date Resolution Status Abrasion of skin of left lower leg acute Abrasion of skin of right lower leg acute Screening-pulmonary TB acute [facility] Work Phone: History and physical note Author Dr. Guzman [facility] July 09, 2022 6:32pm Note Date/Time July 09, 2022 6:03pm [facility] Medical Records Department [address] [place] [address] H&P Exam - Hospitalist 07/09/22 1735 MR#: [id number] Acct: [id number] Name: JOSELINE ELLIS Rep #:[id number] : 1950 72 From: Durga Balbuena PCP: Dr. Bernie Reagan MD Status:A DM IN Location: [place] [address] HPI - General General Date of Admission: [...] lactic acidosis discussed in assessment and plan. [facility] Medical History Abnormal mammogram of right breast [...] mg/mL subcutaneous syringe (Prolia) 60 mg subcut [id number] #1 mL 03/11/22 [Rx Last Taken Unknown] [...] (Auto) 75.9 H, Lymph % (Auto) 16.2 L,Guthrie % (Auto) 4.9, Eos % (Auto) 2.0, [...] 16:09 EST Reading Location ID and State: [facility] / OR , Service support , Assessment & Plan [...] She does not have designated power of staff attorney for health but her sister is [...] shock if needed Total time spent in [id number] encounter in discussion of advanced directive 17 minutes. Laboratory Results 07/09/22 15:43: WBC 8.8, RBC 4.37, Hgb 12.0, Hct 37.7, MCV 86.3, MCH 27.5, MCHC 31.8 L, RDW Std Deviation 48.1 H, RDW Coeff of Zee 15.2 H, Plt Count 369, MPV 10.0, Immature Gran % (Auto) 0.500, Neut % (Auto) 75.9 H, Lymph % (Auto) 16.2 L,Guthrie % (Auto) 4.9, Eos % (Auto) 2.0, [...] or osteomyelitis Charges/Coding Visit Charges Inpatient E&M: 79730 Init Hosp L3 Procedures Hospitalists Procedures: 95435 Advncd Care Plan 30 Min 07/09/22 4301 <Electronically signed by Durga Guzman MD> Cosigner [...] MD; Dr. Durga Guzman MD ~* Signed [facility] Work Phone: Hospital course Narrative No data available for this section [facility] Hospital Discharge instructionsAmbulatory Orders* Ears, Nose and Throat Location: None Selected [facility] Work Phone: Hospital Discharge instructionsAmbulatory Orders* Nephrology Location: None Selected [facility] Work Phone: Hospital Discharge instructionsAmbulatory Orders* Wound Care Location: None Selected [facility] Work Phone: Hospital Discharge instructions No data available for this section [facility] Hospital Discharge instructions Additional Instructions Thank you [...] care physician for further outpatient evaluation and management.[facility] Work Phone: Progress note Author Dr. Connor [facility] September 15, 2022 10:47am Note Date/Time September 15, 2022 10:47a m [facility] Medical Records Department [address] [place] [address] Progress Note - Cardiology 09/15/22 1044 MR#: [id number] Acct: [id number] Name: JOSELINE ELLIS Rep #:[id number] : 1950 72 From: Yobany Connor MD PCP: Dr. Bernie Reagan MD Status:A DM IN Location: [place] [address] Subjective Subjective Converted to normal sinus rhythm. [...] % (Auto) 67.8, Lymph % (Auto) 20.2, Guthrie % (Auto) 6.1, Eos % (Auto) 5.0, [...] Neut %(Auto) 67.8, Lymph % (Auto) 20.2, Guthrie % (Auto) 6.1, Eos % (Auto) 5.0, [...] Cosigner Signature (if applicable): CC: ~ Signed [facility] Work Phone: Progress note No data available for this section [facility] Chief Complaint Chief Complaint Description Start Date right middle finger injury Preliminary chief co mplaint data, not yet signed by the author as of Instructions Instruction Description Start Date Patient advised to follow-up with Primary Care Physician for BMI management. Advance Directives No Advanced Directives Records Found Advance Directive Response Recorded Date/ Time Living Will Yes March 03 10:32am Power of Supply Technician Yes March 03, 2021 10:32am Advance Directive Response Recorded Date/ Time Living Will Yes August 21, 2021 2:54pm Power of Supply Technician Yes August 21 2:54pm Advance Directive Response Recorded Date/ Time Name of Medical Power of Supply Technician Kim corcoran August 21, 2021 2:54pm Living Will Yes August 21, 2021 2:54pm Power of Supply Technician Yes August 21 2:54pm Advance Directive Response Recorded Date/ Time Living Will Yes August 21, 2021 1:54pm Power of Supply Technician Yes August 21 2 1:54pm Advance Directive Response Recorded Date/ Time Name of Medical Power of Supply Technician Kim Corcoran July 06, 2022 2:53pm Living Will Yes July 06, 2 023 2:53pm Power of Supply Technician Yes July 06, 2022 2:53pm Advance Directive Response Recorded Date/ Time Name of Medical Power of Supply Technician Kim Scobel July 06, 2022 2:53pm Living Will No July 09, 2 023 3:02pm Power of Supply Technician No July 09, 2022 3:02pm Advance Directive Response Recorded Date/ Time Name of Medical Power of Supply Technician Kim Scobel July 06, 2022 2:53pm Name of Medical Power of Supply Technician lo calero July 09, 2022 5:53pm Living Will Yes July 09, 2 023 5:53pm Power of Supply Technician Yes July 09, 2022 5:53pm Advance Directive Response Recorded Date/ Time Name of Medical Power of Supply Technician Kim Scobel July 06, 2022 3:53pm Name of Medical Power of Supply Technician lo calero July 09, 2022 6:53pm Living Will Yes July 09, 023 6:53pm Power of Supply Technician Yes July 09, 2022 6:53pm Advance Directive Response Recorded Date/ Time Name of Medical Power of Supply Technician Kim Dianaobel July 06, 2022 3:53pm Name of Medical Power of Supply Technician lo calero July 09, 2022 6:53pm Name of Medical Power of Supply Technician sister August 11, 2022 3:54pm Living Will Yes August 11, 2022 3:54pm Power of Supply Technician Yes August 11 3:54pm Advance Directive Response Recorded Date/ Time Name of Medical Power of Supply Technician Kim Dianaobel July 06, 2022 3:53pm Name of Medical Power of Supply Technician lo calero July 09, 2022 6:53pm Name of Medical Power of Supply Technician kim corcoran-s ister August 12, 2022 12:31am Living Will Yes August 12, 2022 12:31am Power of Supply Technician Yes August 12 12:31am Advance Directive Response Recorded Date/ Time Name of Medical Power of Supply Technician Kim Dianaobel July 06, 2022 3:53pm Name of Medical Power of Supply Technician lo sappggins July 09, 2022 6:53pm Name of Medical Power of Supply Technician kim dianaobel-s ister August 12, 2022 12:31am Name of Medical Power of Supply Technician KIM DIANAOBEL September 06, 2022 12:54pm Living Will Yes September 06, 2022 12:54pm Power of Supply Technician Yes September 06 12:54pm Advance Directive Response Recorded Date/ Time Name of Medical Power of Supply Technician Kim Dianaobel July 06, 2022 3:53pm Name of Medical Power of Supply Technician lo calero July 09, 2022 6:53pm Name of Medical Power of Supply Technician kim dianaobel-s ister August 12, 2022 12:31am Name of Medical Power of Supply Technician KIM DIANAOBEL September 06, 2022 12:54pm Name of Medical Power of Supply Technician KIM/ September 09, 2022 2:44pm Living Will Yes September 09, 2022 2:44pm Power of Supply Technician Yes September 09 2:44pm Advance Directive Response Recorded Date/ Time Name of Medical Power of Supply Technician Kim Dianaobel July 06, 2022 3:53pm Name of Medical Power of Supply Technician lo calero July 09, 2022 6:53pm Name of Medical Power of Supply Technician kim dianaobel-s ister August 12, 2022 12:31am Name of Medical Power of Supply Technician KIM SCOBEL September 06, 2022 12:54pm Name of Medical Power of Supply Technician Lit Scovel September 09, 2022 6:22pm Living Will Yes September 09, 2022 6:22pm Power of Supply Technician Yes September 09 6:22pm Advance Directive Response Recorded Date/ Time Name of Medical Power of Supply Technician kim dianaobel-s ister August 12, 2022 12:31am Name of Medical Power of Supply Technician KIM SCOBEL September 06, 2022 12:54pm Name of Medical Power of Supply Technician Lit Scovel September 09, 2022 6:22pm Living Will Yes September 09, 2022 6:22pm Power of Supply Technician Yes September 09 6:22pm Advance Directive Response Recorded Date/ Time Living Will Yes September 09, 2022 6:22pm Power of Supply Technician Yes September 09 6:22pm Advance Directive Response Recorded Date/ Time Name of Medical Power of Supply Technician . April 07, 2023 2:37pm Living Will Yes April 07 2:37pm Power of Supply Technician Yes April 07, 2023 2:37pm Advance Directive Response Recorded Date/ Time Living Will Yes May 30 3:13pm Power of Supply Technician Yes May 30, 2023 3:13pm Name of Medical Power of Supply Technician . April 07, 2023 2:37pm Advance Directive Response Recorded Date/ Time Living Will Yes May 30 4:13pm Power of Supply Technician Yes May 30, 2023 4:13pm Advance Directive Response Recorded Date/ Time Do you have a Healthcare Power of Supply Technician? Yes October 02, 2024 6:06pm Assessments There [...] Complaint and Reason for Visit Chief Complaint CARE HOME LABWORK CARE HOME LABWORK CARE HOME LABWORK CARE HOME LABWORK CARE HOME BLOOD WORK LAB WORK CARE HOME LABWORK CARE HOME LABWORK CARE HOME LABWORK CARE HOME LABWORK CARE HOME LABWORK CARE HOME LABWORK CARE HOME LABWORK CARE HOME LABWORK CARE HOME LAB WORK CARE HOME LABWORK CARE HOME LABWORK CARE HOME LABWORK CARE HOME LAB WORK CARE HOME LABWORK CARE HOME LAB WORK Chief Complaint CARE HOME LABWORK CARE HOME LABWORK CARE HOME LABWORK CARE HOME LABWORK CARE HOME BLOOD WORK LAB WORK CARE HOME LABWORK CARE HOME LABWORK CARE HOME LABWORK CARE HOME LABWORK CARE HOME LABWORK CARE HOME LABWORK CARE HOME LABWORK CARE HOME LABWORK CARE HOME LAB WORK CARE HOME LABWORK CARE HOME LABWORK CARE HOME LABWORK CARE HOME LAB WORK CARE HOME LABWORK CARE HOME LAB WORK LOWER GI BLEED Reason for Visit Acute GI bleeding Acute UTI Lower GI bleed Weakness Chief Complaint CARE HOME LABWORK CARE HOME LABWORK CARE HOME LABWORK CARE HOME LABWORK CARE HOME BLOOD WORK LAB WORK CARE HOME LABWORK CARE HOME LABWORK CARE HOME LABWORK CARE HOME LABWORK CARE HOME LABWORK CARE HOME LABWORK CARE HOME LABWORK CARE HOME LABWORK CARE HOME LAB WORK CARE HOME LABWORK CARE HOME LABWORK CARE HOME LABWORK CARE HOME LAB WORK CARE HOME LABWORK CARE HOME LAB WORK LOWER GI BLEED LOWER GI BLEED LOWER GI BLEED Reason for Visit Acute GI bleeding Acute UTI Lower GI bleed Weakness Chief Complaint CARE HOME LABWORK CARE HOME LABWORK CARE HOME LABWORK CARE HOME LABWORK CARE HOME LABWORK CARE HOME LABWORK CARE HOME LABWORK CARE HOME LABWORK CARE HOME LAB WORK CARE HOME LABWORK CARE HOME LABWORK CARE HOME LABWORK CARE HOME LAB WORK CARE HOME LABWORK CARE HOME LAB WORK LOWER GI BLEED LOWER GI BLEED LOWER GI BLEED CARE HOME LAB WORK LABWORK CARE HOME LABWORK Reason for Visit Acute GI bleeding Acute UTI Lower GI bleed Chief Complaint CARE HOME LABWORK CARE HOME LABWORK CARE HOME LABWORK CARE HOME LABWORK CARE HOME LABWORK CARE HOME LAB WORK CARE HOME LABWORK CARE HOME LABWORK CARE HOME LABWORK CARE HOME LAB WORK CARE HOME LABWORK CARE HOME LAB WORK LOWER GI BLEED LOWER GI BLEED LOWER GI BLEED CARE HOME LAB WORK LABWORK CARE HOME LABWORK Reason for Visit Acute GI bleeding Acute UTI Lower GI bleed Chief Complaint CARE HOME LABWORK CARE HOME LABWORK CARE HOME LAB WORK CARE HOME LABWORK CARE HOME LABWORK CARE HOME LABWORK CARE HOME LAB WORK CARE HOME LABWORK CARE HOME LAB WORK LOWER GI BLEED LOWER GI BLEED LOWER GI BLEED CARE HOME LAB WORK LABWORK CARE HOME LABWORK Reason for Visit Acute GI bleeding Acute UTI Lower GI bleed Chief Complaint CARE HOME LAB WOR K LOWER GI BLEED LOWER GI BLEED LOWER GI BLEED CARE HOME LAB WORK LABWORK CARE HOME LABWORK CHECK UP Reason for Visit Acute [...] Reason for Visit [facility] Essential hypertension Type II diabetes mellitus Urinary incontinence, overflow Chief Complaint 3 M FU INR CELLULITIS FINGER WOUND,BACTEREMIA,CRISTIAN,LACTIC ACIDOSIS FINGER WOUND,BACTEREMIA,CRISTIAN,LACTIC ACIDOSIS Reason for Visit [facility] Essential hypertension Type II diabetes mellitus Urinary incontinence, overflow Acute kidney injury Bacteremia Cellulitis of right middle finger Finger infection Chief Complaint 3 M FU INR CELLULITIS FINGER WOUND,BACTEREMIA,CRISTIAN,LACTIC ACIDOSIS FINGER WOUND,BACTEREMIA,CRISTIAN,LACTIC ACIDOSIS FINGER WOUND,BACTEREMIA,CRISTIAN,LACTIC ACIDOSIS FINGER WOUND,BACTEREMIA,CRISTIAN,LACTIC ACIDOSIS FINGER WOUND,BACTEREMIA,CRISTIAN,LACTIC ACIDOSIS FINGER WOUND,BACTEREMIA,CRISTIAN,LACTIC ACIDOSIS FINGER WOUND,BACTEREMIA,CRISTIAN,LACTIC ACIDOSIS FINGER WOUND,BACTEREMIA,CRISTIAN,LACTIC ACIDOSIS Reason for Visit [facility] care 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 Chief Complaint 3 M FU INR CELLULITIS FINGER WOUND,BACTEREMIA,CRISTIAN,LACTIC ACIDOSIS FINGER WOUND,BACTEREMIA,CRISTIAN,LACTIC ACIDOSIS RHYTHM CHANGE FINGER WOUND,BACTEREMIA,CRISTIAN,LACTIC ACIDOSIS FINGER WOUND,BACTEREMIA,CRISTIAN,LACTIC ACIDOSIS FINGER WOUND,BACTEREMIA,CRISTIAN,LACTIC ACIDOSIS FINGER WOUND,BACTEREMIA,CRISTIAN,LACTIC ACIDOSIS FINGER WOUND,BACTEREMIA,CRISTIAN,LACTIC ACIDOSIS FINGER WOUND,BACTEREMIA,CRISTIAN,LACTIC ACIDOSIS FINGER WOUND,BACTEREMIA,CRISTIAN,LACTIC ACIDOSIS FINGER WOUND,BACTEREMIA,CRISTIAN,LACTIC ACIDOSIS FINGER WOUND,BACTEREMIA,CRISTIAN,LACTIC ACIDOSIS activase x1 to picc line wound [facility] FU/INR Reason for Visit 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 Osteomyelitis of finger of right hand Chief Complaint 3 M FU INR CELLULITIS FINGER WOUND,BACTEREMIA,CRISTIAN,LACTIC ACIDOSIS FINGER WOUND,BACTEREMIA,CRISTIAN,LACTIC ACIDOSIS RHYTHM CHANGE FINGER WOUND,BACTEREMIA,CRISTIAN,LACTIC ACIDOSIS FINGER WOUND,BACTEREMIA,CRISTIAN,LACTIC ACIDOSIS FINGER WOUND,BACTEREMIA,CRISTIAN,LACTIC ACIDOSIS FINGER WOUND,BACTEREMIA,CRISTIAN,LACTIC ACIDOSIS FINGER WOUND,BACTEREMIA,CRISTIAN,LACTIC ACIDOSIS FINGER WOUND,BACTEREMIA,CRISTIAN,LACTIC ACIDOSIS FINGER WOUND,BACTEREMIA,CRISTIAN,LACTIC ACIDOSIS FINGER WOUND,BACTEREMIA,CRISTIAN,LACTIC ACIDOSIS FINGER WOUND,BACTEREMIA,CRISTIAN,LACTIC ACIDOSIS activase x1 to picc line wound [facility] FU/INR wound [facility] Reason for Visit [facility] care 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 Osteomyelitis of finger of right hand MRSA infection Skin ulcer of finger Diabetes shelter (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 Osteomyelitis of finger of right hand Type II diabetes mellitus Chief Complaint 3 M FU INR CELLULITIS FINGER WOUND,BACTEREMIA,CRISTIAN,LACTIC ACIDOSIS FINGER WOUND,BACTEREMIA,CRISTIAN,LACTIC ACIDOSIS RHYTHM CHANGE FINGER WOUND,BACTEREMIA,CRISTIAN,LACTIC ACIDOSIS FINGER WOUND,BACTEREMIA,CRISTIAN,LACTIC ACIDOSIS FINGER WOUND,BACTEREMIA,CRISTIAN,LACTIC ACIDOSIS FINGER WOUND,BACTEREMIA,CRISTIAN,LACTIC ACIDOSIS FINGER WOUND,BACTEREMIA,CRISTIAN,LACTIC ACIDOSIS FINGER WOUND,BACTEREMIA,CRISTIAN,LACTIC ACIDOSIS FINGER WOUND,BACTEREMIA,CRISTIAN,LACTIC ACIDOSIS FINGER WOUND,BACTEREMIA,CRISTIAN,LACTIC ACIDOSIS FINGER WOUND,BACTEREMIA,CRISTIAN,LACTIC ACIDOSIS activase x1 to picc line wound [facility] FU/INR wound [facility] wound wound HOME DRAW LAB WORK A-FIB RVR Reason [facility] Essential hypertension Type II diabetes mellitus Urinary incontinence, overflow Abscess of right middle finger MRSA infection Diabetes shelter (current) use of anticoagulants Osteomyelitis of finger of right hand Cerumen impaction 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 Osteomyelitis of finger of right hand MRSA infection Skin ulcer of finger Diabetes shelter (current) use of anticoagulants Osteomyelitis of finger of right hand Type II diabetes mellitus Atrial fib/flutter, transient Atrial flutter with rapid ventricular response Dehydration Diarrhea Hypercoagulable state due to atrial fibrillation MRSA infection Occluded PICC line Paroxysmal atrial fibrillation with RVR Skin ulcer of finger 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 Osteomyelitis of finger of right hand Chief Complaint 3 M FU INR CELLULITIS FINGER WOUND,BACTEREMIA,CRISTIAN,LACTIC ACIDOSIS FINGER WOUND,BACTEREMIA,CRISTIAN,LACTIC ACIDOSIS RHYTHM CHANGE FINGER WOUND,BACTEREMIA,CRISTIAN,LACTIC ACIDOSIS FINGER WOUND,BACTEREMIA,CRISTIAN,LACTIC ACIDOSIS FINGER WOUND,BACTEREMIA,CRISTIAN,LACTIC ACIDOSIS FINGER WOUND,BACTEREMIA,CRISTIAN,LACTIC ACIDOSIS FINGER WOUND,BACTEREMIA,CRISTIAN,LACTIC ACIDOSIS FINGER WOUND,BACTEREMIA,CRISTIAN,LACTIC ACIDOSIS FINGER WOUND,BACTEREMIA,CRISTIAN,LACTIC ACIDOSIS FINGER WOUND,BACTEREMIA,CRISTIAN,LACTIC ACIDOSIS FINGER WOUND,BACTEREMIA,CRISTIAN,LACTIC ACIDOSIS activase x1 to picc line wound [facility] FU/INR wound [facility] wound wound HOME DRAW LAB WORK A-FIB RVR A-FIB RVR Reason for Visit 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 Osteomyelitis of finger of right hand Type II diabetes mellitus Atrial fib/flutter, transient Atrial flutter with rapid ventricular response Dehydration Diarrhea Hypercoagulable state due to atrial fibrillation MRSA infection Occluded PICC line Paroxysmal atrial fibrillation with RVR Skin ulcer of finger 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 Osteomyelitis of finger of right hand Chief Complaint 3 M FU INR CELLULITIS FINGER WOUND,BACTEREMIA,CRISTIAN,LACTIC ACIDOSIS FINGER WOUND,BACTEREMIA,CRISTIAN,LACTIC ACIDOSIS RHYTHM CHANGE FINGER WOUND,BACTEREMIA,CRISTIAN,LACTIC ACIDOSIS FINGER WOUND,BACTEREMIA,CRISTIAN,LACTIC ACIDOSIS FINGER WOUND,BACTEREMIA,CRISTIAN,LACTIC ACIDOSIS FINGER WOUND,BACTEREMIA,CRISTIAN,LACTIC ACIDOSIS FINGER WOUND,BACTEREMIA,CRISTIAN,LACTIC ACIDOSIS FINGER WOUND,BACTEREMIA,CRISTIAN,LACTIC ACIDOSIS FINGER WOUND,BACTEREMIA,CRISTIAN,LACTIC ACIDOSIS FINGER WOUND,BACTEREMIA,CRISTIAN,LACTIC ACIDOSIS FINGER WOUND,BACTEREMIA,CRISTIAN,LACTIC ACIDOSIS activase x1 to picc line wound [facility] FU/INR wound [facility] wound wound HOME DRAW LAB WORK A-FIB RVR A-FIB RVR A-FIB RVR A-FIB RVR A-FIB RVR Reason for Visit [facility] care 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 Osteomyelitis of finger of right hand Cerumen impaction shelter (current) use of anticoagulants Osteomyelitis of finger of right hand MRSA infection Skin ulcer of finger Diabetes shelter (current) use of anticoagulants Osteomyelitis of finger of right hand Type II diabetes mellitus Atrial fib/flutter, transient Atrial flutter with rapid ventricular response Dehydration Diarrhea Hypercoagulable state due to atrial fibrillation MRSA infection Occluded PICC line Paroxysmal atrial fibrillation with RVR Skin ulcer of finger 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 Osteomyelitis of finger of right hand Chief Complaint 3 M FU INR CELLULITIS FINGER WOUND,BACTEREMIA,CRISTIAN,LACTIC ACIDOSIS FINGER WOUND,BACTEREMIA,CRISTIAN,LACTIC ACIDOSIS RHYTHM CHANGE FINGER WOUND,BACTEREMIA,CRISTIAN,LACTIC ACIDOSIS FINGER WOUND,BACTEREMIA,CRISTIAN,LACTIC ACIDOSIS FINGER WOUND,BACTEREMIA,CRISTIAN,LACTIC ACIDOSIS FINGER WOUND,BACTEREMIA,CRISTIAN,LACTIC ACIDOSIS FINGER WOUND,BACTEREMIA,CRISTIAN,LACTIC ACIDOSIS FINGER WOUND,BACTEREMIA,CRISTIAN,LACTIC ACIDOSIS FINGER WOUND,BACTEREMIA,CRISTIAN,LACTIC ACIDOSIS FINGER WOUND,BACTEREMIA,CRISTIAN,LACTIC ACIDOSIS FINGER WOUND,BACTEREMIA,CRISTIAN,LACTIC ACIDOSIS activase x1 to picc line wound [facility] FU/INR wound [facility] wound wound HOME DRAW LAB WORK A-FIB RVR A-FIB RVR A-FIB RVR A-FIB RVR A-FIB RVR A-FIB RVR A-FIB RVR A-FIB RVR Reason [facility] Visit [facility] Essential hypertension Type II diabetes mellitus Urinary incontinence, overflow Abscess of right middle finger MRSA infection 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 Osteomyelitis of finger of right hand Cerumen impaction 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 Osteomyelitis of finger of right hand MRSA infection Skin ulcer of finger Diabetes shelter (current) use of anticoagulants Osteomyelitis of finger of right hand Type II diabetes mellitus Atrial fib/flutter, transient Atrial flutter with rapid ventricular response Dehydration Diarrhea Hypercoagulable state due to atrial fibrillation MRSA infection Occluded PICC line Paroxysmal atrial fibrillation with RVR Skin ulcer of finger 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 Osteomyelitis of finger of right hand Chief Complaint 3 M FU INR CELLULITIS FINGER WOUND,BACTEREMIA,CRISTIAN,LACTIC ACIDOSIS FINGER WOUND,BACTEREMIA,CRISTIAN,LACTIC ACIDOSIS RHYTHM CHANGE FINGER WOUND,BACTEREMIA,CRISTIAN,LACTIC ACIDOSIS FINGER WOUND,BACTEREMIA,CRISTIAN,LACTIC ACIDOSIS FINGER WOUND,BACTEREMIA,CRISTIAN,LACTIC ACIDOSIS FINGER WOUND,BACTEREMIA,CRISTIAN,LACTIC ACIDOSIS FINGER WOUND,BACTEREMIA,CRISTIAN,LACTIC ACIDOSIS FINGER WOUND,BACTEREMIA,CRISTIAN,LACTIC ACIDOSIS FINGER WOUND,BACTEREMIA,CRISTIAN,LACTIC ACIDOSIS FINGER WOUND,BACTEREMIA,CRISTIAN,LACTIC ACIDOSIS FINGER WOUND,BACTEREMIA,CRISTIAN,LACTIC ACIDOSIS activase x1 to picc line wound [facility] FU/INR wound [facility] wound wound HOME DRAW LAB WORK A-FIB RVR A-FIB RVR EKG A-FIB RVR A-FIB RVR A-FIB RVR A-FIB RVR A-FIB RVR A-FIB RVR wound 3 m fu INR wound high heart rate wound Reason for Visit [facility] care [facility] Essential hypertension Type II diabetes mellitus [...] Complaint 3 M FU INR CELLULITIS FINGER WOUND,BACTEREMIA,CRITSIAN,LACTIC ACIDOSIS FINGER WOUND,BACTEREMIA,CRISITAN,LACTIC ACIDOSIS RHYTHM CHANGE FINGER WOUND,BACTEREMIA,CRISTIAN,LACTIC ACIDOSIS FINGER WOUND,BACTEREMIA,CRISTIAN,LACTIC ACIDOSIS FINGER WOUND,BACTEREMIA,CRISTIAN,LACTIC ACIDOSIS FINGER WOUND,BACTEREMIA,CRISTIAN,LACTIC ACIDOSIS FINGER WOUND,BACTEREMIA,CRISTIAN,LACTIC ACIDOSIS FINGER WOUND,BACTEREMIA,CRISTIAN,LACTIC ACIDOSIS FINGER WOUND,BACTEREMIA,CRISTIAN,LACTIC ACIDOSIS FINGER WOUND,BACTEREMIA,CRISTIAN,LACTIC ACIDOSIS FINGER WOUND,BACTEREMIA,CRISTIAN,LACTIC ACIDOSIS activase x1 to picc line wound [facility] FU/INR wound [facility] wound wound HOME DRAW LAB WORK A-FIB RVR A-FIB RVR EKG A-FIB RVR A-FIB RVR A-FIB RVR A-FIB RVR A-FIB RVR A-FIB RVR wound 3 m fu INR wound high heart rate wound SEPSIS/ACUTE HYPOXIC RESPIRATORY FAILURE Reason for Visit [facility] Essential hypertension Type II diabetes mellitus [...] ACIDOSIS activase x1 to picc line wound [facility] FU/INR wound [facility] wound [...] ACIDOSIS activase x1 to picc line wound [facility] FU/INR wound [facility] wound [...] RESPIRATORY FAILURE [facility] Essential hypertension Type II diabetes mellitus [...] ACIDOSIS activase x1 to picc line wound [facility] FU/INR wound [facility] wound [...] SEPSIS/ACUTE HYPOXIC RESPIRATORY FAILURE [facility] Ess[facility] hypertension Type II diabetes mellitus [...] ACIDOSIS activase x1 to picc line wound [facility] FU/INR wound [facility] wound [...] FAILURE SEPSIS/ACUTE HYPOXIC RESPIRATORY FAILURE wound wound [facility] fu Reason for Visit Abscess of right [...] ACIDOSIS activase x1 to picc line wound [facility] FU/INR wound [facility] wound [...] FAILURE SEPSIS/ACUTE HYPOXIC RESPIRATORY FAILURE wound wound [facility] fu [facility] WORK Reason for [...] ACIDOSIS activase x1 to picc line wound [facility] FU/INR wound [facility] wound [...] FAILURE SEPSIS/ACUTE HYPOXIC RESPIRATORY FAILURE wound wound [facility] fu [facility] LAB WORK [facility] [...] Complaint activase x1 to picc line wound [facility] FU/INR wound [facility] wound [...] FAILURE SEPSIS/ACUTE HYPOXIC RESPIRATORY FAILURE wound wound [facility] fu [facility] WORK [facility] fu wound S/P [facility] Reason for Visit Cerumen impaction [...] Essential hypertension Hyperlipidemia Chief Complaint wound wound [facility] fu [facility] WORK [facility] fu wound S/P [facility] wound wound Reason for Visit [...] Urinary incontinence, overflow Chief Complaint wound [facility] CARE [facility] LAB WORK PALPITATIONS Reason for Visit [...] 19, 2024 1:02pm Tachycardia a-fib, pt uses [facility] Transport September 24, 2024 1:16pm [...] or prosecute any alcohol or drug abuse patient.[facility] Care Teams (unrecognized sec tion and content) Strapper Operator Relationship Specialty Start Date End Date Bernie Reagan MD [address] [place] [address] PCP - General Internal Medicine 02/06/19 Julius Wesley [address] [place] [address] Specialty Scratcher Cardiology 10/20/18 Dave Otriz [address] [place] [address] Consulting Pulmonary Disease 10/20/18 Heriberto Cordero MD [address] [address] Specialty Scratcher Nephrology 10/20/18 Eddie Thorpe [address] [place] [address] Specialty Scratcher Cerebrovascular 10/20/18 Team Status: Active Member Role [...] Lopez MD Other Provider Active Génesis Patel LAND CLASSIFIER, LAND CLASSIFIER-C Attending Provider Active Team Status: Inactive Member Role Status Dates Dr. Bernie Reagan MD Primary Care Provider, Refer ring Provider Active Nadja Mckeon LAND CLASSIFIER, LAND CLASSIFIER-C Attending Provider Active Team Status: Active Member [...] MD Primary Care Provider Active Génesis Patel LAND CLASSIFIER, LAND CLASSIFIER-C Attending Provider Active Team Status: Inactive Member [...] MD Primary Care Provider Active Génesis Patel LAND CLASSIFIER, LAND CLASSIFIER-C Attending Provider, Other P rovider Active Team Status: Inactive Member Role Status Dates Dr. Bernie Reagan MD Primary Care Provider Active Nadja Mckeon LAND CLASSIFIER, LAND CLASSIFIER-C Attending Provider Active Team Status: Active Member Role Status Dates Dr. Bernie Reagan MD Primary Care Provider Active Nadja Mckeon LAND CLASSIFIER, LAND CLASSIFIER-C Attending Provider, Referring Prov ider Active Team [...] MD Primary Care Provider Active Nadja Mckeon LAND CLASSIFIER, LAND CLASSIFIER-C Attending Provider, Referring Prov ider Active Team [...] Active Member Role Status Dates Dr. Bernie Reaagn MD Primary Care Provider Active Dr. Monty Mota DO Emergency Provider Active Dr. Nicholas Delvalle MD Admit Provider, Other Provide r Active Dr. Wale Jacobsen DO Attending Provider Active Dr. Anu James MD Other Provider Active Team Status: Inactive Member Role Status Dates Dr. Bernie Reagan MD Primary Care Provider Active Génesis Patel LAND CLASSIFIER, LAND CLASSIFIER-C Attending Provider Active Team Status: Active Member [...] MD Primary Care Provider Active Génesis Patel LAND CLASSIFIER, LAND CLASSIFIER-C Attending Pro vider, Referring Provider, Other Provider [...] Provider, Refer ring Provider Active Mando López LAND CLASSIFIER, LAND CLASSIFIER-C Attending Provider Active Team Status: Inactive Member [...] May 21, 2024 Dr. Bernie Reagan MD Referring Provider Active Start: May 21, [...] 2024 End: September 24, 2024 Mando López LAND CLASSIFIER, LAND CLASSIFIER-C Attending Provider Active S tart: September 24, [...] section and content) DATE CREATED AUTHOR 07/25/2021 [facility] [place] DATE CREATED AUTHOR AUTHOR'S ORGANIZ ATION 07/20/2023 [facility] ([place]) DATE CREATED AUTHOR AUTHOR'S ORGANIZ ATION 10/18/2024 [facility] DATE CREATED AUTHOR AUTHOR'S ORGANIZ ATION 11/04/2024 [facility] Goals (unrecognized section and content) Goals may [...] BE BASED ON THE PRIMARY CLINICAL RECORDS. [employer] [facility]. provides no warranty or guarantee of the accuracy or completeness of information in this document.
[2024-11-07 07:50] LABS: Hematocrit 38.6 % (37-47); Hemoglobin 12.4 g/dL (12.0-15.0); Mean Corp Hgb Conc 32.1 g/dL (32-36); Mean Corpuscular Hgb 28.7 pg (27.0-32.0); Mean Corpuscular Volume 89.4 fL (81-99); Mean Platelet Vol. 10.2 fl (6.2-12.0); Platelet Count 300 K/mm3 (150-450); RBC Distribution Width CV 15.9 % (11.6-14.6); RBC Distribution Width SD 52.5 fl (35.1-43.9); Red Blood Count 4.32 M/mm3 (4.2-5.4); White Blood Count 6.2 K/mm3 (4.4-11.0)
[2024-11-07 08:30] LABS: Hemoglobin A1c 6.1 % (<=5.6)
== END ==
LOC: OLS.WCC 05:00
PROVIDERS: PCP Internal Medicine; Visit Provider Family Medicine
DX: N18.30 Chronic kidney disease, stage 3 unspecified (principal)
CPT/HCPCS: 36415; 83036; 85027

== ENCOUNTER 2025-02-14 23:33 | Emergency (ER) | payer MEDICARE, SELFPAY ==
--- NOTE | 2025-02-14 00:13 | RAD_ITS ---
PROCEDURE: KNEE 3 VIEWS 02/14/2025 REASON FOR EXAM: PAIN TECHNIQUE: Procedure Code: RADPAT Modality: DX Procedure: KNEE 3 VIEWS Laterality: Right COMPARISON: . FINDINGS: Acute displaced angulated distal femoral diaphyseal supracondylar fracture. Mild osteopenia of the visualized bones. Degenerative joint disease. No dislocation is seen. No lytic or blastic bone lesion is noted. Calcified atheromatous plaques are noted. Unremarkable metallic hardware of the right femur. RAD/Knee 3 Views IMPRESSION: Acute displaced angulated distal femoral diaphyseal supracondylar fracture. [facility]
--- NOTE | 2025-02-14 00:13 | RAD_ITS ---
PROCEDURE: PELVIS 1 OR 2 VIEWS 02/14/2025 REASON FOR EXAM: FALL TECHNIQUE: Procedure Code: RADPEL Modality: DX Procedure: PELVIS 1 OR 2 VIEWS COMPARISON: None. FINDINGS: Unremarkable metallic hardware of the right femur. Mild osteopenia of the visualized bones. Degenerative joint disease. No fracture or dislocation is seen. No lytic or blastic bone lesion is noted. RAD/Pelvis 1 or 2 Views IMPRESSION: No evidence for acute abnormality. Reading Location[facility]
[2025-02-14 23:34] VITALS: BP 144/99; PULSE 58; RESP 19; TEMP 36.2; O2SAT 94; BMI 33.7
--- NOTE | 2025-02-14 23:57 | CT_ITS ---
PROCEDURE: SPINE CERVICAL WITHOUT CONTRAS N/A REASON FOR EXAM: FALL TECHNIQUE: Procedure Code: CTSPC Modality: CT Procedure: SPINE CERVICAL WITHOUT CONTRAS Coronal and Sagittal reconstruction series were provided. One or more dose reduction techniques were used (e.g., Automated exposure control, adjustment of the mA and/or kV according to patient size, use of iterative reconstruction technique. RADIATION DOSE SUMMARY: CTDI Vol 32.56 mGy DLP :745.4 mGycm COMPARISON: none FINDINGS: Anterior fixation of C3 down to C7 vertebrae by plate and screws with bony fusion bodies. No hardware break, loosening or osseous infection. Straightened cervical curve denoting myospasm. Mild C7 anterolithesis. The examined vertebral bodies show no structural collapse or posterior neural elements fractures. Intact atlanto-axial interval. Degenerative changes of the atlanto-odontoid articulation with related capsular calcifications. Cervical spondylodegenerative changes evident by marginal osteophytic lipping and multilevel subchondral sclerosis of the examined vertebral end plates with multilevel disc spaces narrowing with vacuum phenomenon. Multilevel degenerative unco-vertebral arthropathy with osteophytes formation seen encroaching upon the corresponding neural exit foramina. Multilevel degenerative facet arthropathy. Nuchal longitudinal ligament calcification noted. Multilevel posterior osteophytes indenting the theca and encroaching upon the related neural exit foramina. No paraspinal masses. Carotid atheromatous calcifications. CT/Spine Cervical without Contras IMPRESSION: Post operative changes as detailed. Straightened cervical curve denoting myospasm. No vertebral fractures, structural collapse or dislocation. Cervical spondylodegenerative changes with multilevel uncovertebral and facet a rthropathy along with posterior osteophytes inducing spinal canal and neural exit pathway compromise. Reading Location: [facility]
--- NOTE | 2025-02-14 23:57 | CT_ITS ---
PROCEDURE: BRAIN/HEAD WITHOUT CONTRAST N/A REASON FOR EXAM: FALL TECHNIQUE: Procedure Code: CTBR Modality: CT Procedure: BRAIN/HEAD WITHOUT CONTRAST Coronal and Sagittal reconstruction series were provided. One or more dose reduction techniques were used (e.g., Automated exposure control, adjustment of the mA and/or kV according to patient size, use of iterative reconstruction technique. RADIATION DOSE SUMMARY: CTDI Vol 44.99 mGy DLP :846.73 mGycm COMPARISON: none FINDINGS: Right poserior parietal small scalp hematoma noted. Accentuated bilateral cerebral periventricular deep white matter hypodensities denoting hypoperfusion with bilateral cerebral periventricular and subcortical as well as right thalamic and basal ganglia hypodense foci and patches. Melendez-white matter differentiation is maintained. Dense falcine calcifications noted. Normal CT appearance of the posterior fossa structures. No intracerebral or extra axial hemorrhage. Dilated ventricular system, cortical sulci and extra-axial CSF spaces. No definite calvarial fractures. No midline shifts or deformity. The osseous structures in the skull base are unremarkable. Paranasal sinuses show left maxillary chronic sinusitis. Vascular atheromatous calcifications. CT/Brain/Head without Contrast IMPRESSION: Right poserior parietal small scalp hematoma noted. No acute cerebrovascular abnormalities. If clinical symptoms persist, further e valuation with MRI may be considered as clinically warranted. No intra or extra-axial acute hemorrhage. Bilateral cerebral microvascular ischemic changes with brain involutional davis es. Reading Location: [place] [id number]
[2025-02-15 01:33] VITALS: BP 139/89; PULSE 120; O2SAT 92
--- NOTE | 2025-02-15 01:45 | RAD_ITS ---
PROCEDURE: FEMUR MIN 2 VIEWS 02/14/2025 REASON FOR EXAM: DISTAL FEMUR FRACTURE TECHNIQUE: Procedure Code: RADFEM Modality: DX Procedure: FEMUR MIN 2 VIEWS COMPARISON: 02/14/2025 FINDINGS: Right femoral intramedullary romeo without hardware fracture or loosening. Oblique fracture of the distal right femur. No dislocations. Moderate degenerative changes of the right hip and extensive degenerative changes of the right knee. Moderate soft tissue edema. Atherosclerotic vasculature. RAD/Femur Min 2 Views IMPRESSION: Oblique fracture of the distal right femur, grossly unchanged. Right femoral intramedullary romeo without hardware fracture or loosening. Reading Location: [id number]
[2025-02-15 02:05] LABS: Hematocrit 34.9 % (37-47); Hemoglobin 11.6 g/dL (12.0-15.0); Immature Granulocytes Count 0.130 X10^3/uL (0.0-0.0); Mean Corp Hgb Conc 33.2 g/dL (32-36); Mean Corpuscular Volume 90.6 fL (81-99); Mean Platelet Vol. 9.9 fl (6.2-12.0); NRBC Flagged by Analyzer 0 % (0-5); Platelet Count 275 K/mm3 (150-450); RBC Distribution Width CV 14.2 % (11.6-14.6); RBC Distribution Width SD 47.2 fl (35.1-43.9); Red Blood Count 3.85 M/mm3 (4.2-5.4); White Blood Count 18.2 K/mm3 (4.4-11.0)
[2025-02-15 02:15] LABS: Partial Thromboplast Time 30.1 Seconds (24.1-36.2); Prothrombin Time (Protime)PT. 16.5 SECONDS (11.7-14.9)
[2025-02-15 02:17] LABS: Mucous, Urine 0 SEEN /hpf (<or=2+)
[2025-02-15 02:28] LABS: Color, Urine Straw (Yellow); Glucose, Dipstick Normal (Normal); Ketone-Dipstick Negative (Negative); Leukocyte Esterase-Dipstick Negative /ul (Negative); Nitrite-Dipstick Positive (Negative); Occult Blood-Urine 10 /ul (Negative); Protein-Dipstick 30 mg/dl (Negative); Specific Gravity, Urine 1.010 (1.002-1.030); Urine Bilirubin Dipstick Negative (Negative)
[2025-02-15 02:51] LABS: Red Blood Cells-Urine 0-5 SEEN /hpf (0-5); Squamous Epithelial Cells - UA 0-5 SEEN /hpf (5-10)
--- NOTE | 2025-02-15 02:53 | ED.RN ---
contacted anne marie to obtain the name of the surgeon who previously replaced her rt hip. dr tamanna newell replaced it in dec. information relayed to dr govea.
[2025-02-15 02:56] LABS: Anion Gap 17 (5-15); BUN 31 mg/dL (4-19); BUN/Creat Ratio 23.3 RATIO (10-20); Calcium,Total 9.4 mg/dL (7.6-11.0); Carbon Dioxide 20.5 mmol/L (21.0-32.0); Chloride 100 mmol/L (98-108); Estimated Creatinine Clearance 35.42 ml/min (50-250); Glucose 230 mg/dL (70-99); Potassium 4.8 mmol/L (3.3-5.1)
[2025-02-15 03:00] VITALS: BP 131/93; PULSE 96; RESP 17; O2SAT 94
--- NOTE | 2025-02-15 03:47 | ED.RN ---
Pt sister called per pt request. no further questions at this time.
--- NOTE | 2025-02-15 04:25 | ED.RN ---
Spoke with Bridget GRIMES from [place], updated on plan of care at this time. No further questions at this time.
[2025-02-15 05:00] VITALS: BP 129/89; PULSE 116; RESP 16; O2SAT 95
[2025-02-15 05:51] VITALS: BP 130/84; PULSE 110; RESP 16; TEMP 37; O2SAT 95
--- NOTE | 2025-02-15 06:08 | EX.ED.DYSGE1 ---
HPI History of Present Illness Chief Complaint: Fall Informant: patient and SNF Narrative Narrative: Patient is a 75-year-old female [place] with past medical history of paroxysmal atrial fibrillation currently on Eliquis as well as hypertension and diabetes. She states that she has debility/generalized weakness and falls often. She states this evening she was up and around 10:00 fell secondary to just her persistent generalized weakness and debility. She denies any loss of consciousness associated with the fall. However she states that she has right knee pain secondary to the fall and is concerned for underlying injury and was therefore sent to the hospital for further evaluation [facility] Medical History Physical debility Osteoarthritis ESBL (extended spectrum beta-lactamase) producing bacteria infection Toe ulcer Diabetic ulcer of toe Arrhythmia Generalized erosion of teeth Screening-pulmonary TB History of cerebrovascular accident Chronic anticoagulation Bilateral leg ulcer Intertrigo Acute on chronic heart failure CKD (chronic kidney disease) Paroxysmal A-fib Diabetes mellitus Hypertension Elevated brain natriuretic peptide (BNP) level Stage 3b chronic kidney disease (CKD) Subtherapeutic international normalized ratio (INR) Chronic back pain Tachycardia Paroxysmal atrial fibrillation with RVR Atrial fib/flutter, transient Osteomyelitis of finger of right hand assisted (current) use of anticoagulants 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 without evidence of necrosis Abscess of right middle finger MRSA infection Acute kidney injury Bacteremia Finger infection Health care maintenance Flu vaccine need Urinary incontinence, overflow Burn injury of skin of finger Post-menopausal Chronic cough Irregular heartbeat Pancreatitis Weakness Depression Anxiety Alcohol use Arthritis Walker as ambulation aid Anemia Back pain Dietary restriction Former smoker CPAP (continuous positive airway pressure) dependence History of edema History of echocardiogram History of stress test Cardiology follow-up encounter Osteoporosis Preoperative evaluation to rule out surgical contraindication Atrial fibrillation COVID-19 vaccine series completed Venous insufficiency Paroxysmal atrial fibrillation Kidney disease Anxiety and depression Vision problems CVA (cerebral vascular accident) Hyperlipidemia Breast lump History of UTI Essential hypertension Non-rheumatic mitral valve stenosis Nonrheumatic aortic (valve) stenosis Overactive bladder DKA (diabetic ketoacidoses) Abnormal mammogram of right breast Depression with anxiety Home Medications ?Medication ?Instructions ?Recorded ?Last Taken ?Type WOUND CARE #1 ea 10/06/22 Unknown Rx compress.stocking,knee,reg,lrg #2 ea 05/26/23 Unknown Rx bismuth tribrom-petrolatum,wh 5 X #50 ea 01/25/24 Unknown Rx 9 bandage (Xeroform Petrolatum Dressing) Handicap Placard #1 ea 01/31/24 Unknown Rx acetaminophen 325 mg capsule 650 mg (2 x 325 mg) PO BID PRN 12/19/24 Unknown Rx Pain #180 caps amlodipine 10 mg tablet 10 mg PO DAILY BP #90 tabs 12/19/24 Unknown Rx apixaban 5 mg tablet 5 mg PO BID blood thinner #180 tabs 12/19/24 Unknown Rx atorvastatin 10 mg tablet 10 mg PO DAILY #90 tabs 12/19/24 Unknown Rx furosemide 20 mg tablet (Lasix) 20 mg PO QAM #90 tabs 12/19/24 Unknown Rx menthol 4 % topical gel (Biofreeze 1 applic topical BID PRN pain #237 12/19/24 Unknown Rx (menthol)) mL metformin 1,000 mg tablet 1,000 mg PO BID DM #180 tabs 12/19/24 Unknown Rx metoprolol tartrate 100 mg tablet 100 mg PO BID #180 tabs 12/19/24 Unknown Rx nystatin 100,000 unit/gram topical 1 applic topical BID PRN rash #30 12/19/24 Unknown Rx ointment grams oxybutynin chloride 15 mg 15 mg PO QDAY bladder #90 tabs 12/19/24 Unknown Rx tablet,extended release 24 hr sennosides 8.6 mg-docusate sodium 2 tab-cap (2 x 8.6-50 mg) PO QHS 12/19/24 Unknown Rx 50 mg capsule (Senna Plus) PRN constipation #90 caps sertraline 100 mg tablet (Zoloft) 100 mg PO DAILY anxiety #90 tabs 12/19/24 Unknown Rx amiodarone 200 mg tablet 200 mg PO .COMPLEX Please 12/20/24 Unknown Rx prepackage if needed #30 tabs ascorbate calcium (vitamin C) 500 500 mg PO BID #180 tabs 12/21/24 Unknown Rx mg tablet cholecalciferol (vitamin D3) 50 50 mcg PO QDAY #90 caps 12/21/24 Unknown Rx mcg (2,000 unit) capsule ferrous sulfate 325 mg (65 mg 325 mg PO Q OTHER DAY #90 tabs 12/21/24 Unknown Rx iron) tablet Motorized WheelChair #1 ea 01/01/25 Unknown Rx diclofenac sodium 1 % topical gel 4 g topical 4XD PRN pain #100 grams 01/02/25 Unknown Rx (Arthritis Pain (diclofenac)) loperamide 2 mg tablet 2 mg PO Q6H PRN loose stool 01/02/25 Unknown History magnesium hydroxide 400 mg/5 mL 30 ml PO BID PRN constipation 01/02/25 Unknown History oral suspension (Dulcolax (magnesium hydroxide)) nystatin 100,000 unit/gram topical 1 applic topical TID #60 grams 01/23/25 Unknown Rx powder Allergy/AdvReac Type Severity Reaction Status Date / Time fosinopril (From Monopril) Allergy Unknown Other Verified 02/14/25 23:48 pioglitazone AdvReac Other Verified 02/14/25 23:48 Family History Father Diabetes High cholesterol Heart disease Melanoma Hypertension Mother Heart disease Brother AIDS (acquired immune deficiency syndrome) Surgical History History of hip surgery History of amputation of finger of right hand History of left elbow replacement History of hysterectomy History of carpal tunnel release History of back surgery Status post surgical amputation of finger of right hand Hx of colonoscopy History of left elbow replacement S/P hysterectomy S/P ORIF (open reduction internal fixation) fracture History of surgical amputation of finger of right hand History of hand surgery History of carpal tunnel release History of back surgery History of hysterectomy Social History household members: none Smoking Status: Never smoker how long ago did patient quit smokin years ago alcohol intake: current alcohol intake frequency: holidays/special occasions only substance use type: does not use what type of physical activity do you participate in: other details: aquasize ROS ROS ED Constitutional Constitutional ED: Reports other Details: Positive fatigue ; Denies chills or fever(s) Eyes Eyes: Denies blurry vision or change in vision ENT ENT ED: Denies sore throat Cardiovascular Cardiovascular: Reports other Details: Negative syncope ; Denies chest pain, palpitations or racing heartbeat Respiratory/Chest Respiratory/Chest: Denies cough or dyspnea Gastrointestinal Gastrointestinal: Denies abdominal pain, diarrhea, nausea or vomiting Genitourinary Genitourinary ED: Denies dysuria Musculoskeletal Musculoskeletal: Reports other Details: Positive right knee pain ; Denies back pain or neck pain Integumentary Denies Abrasions Neurologic Neurologic: Reports weakness; Denies headache(s) Hematologic/Lymphatic Hematologic/Lymphatic: Reports easy bleeding and easy bruising EXAM Physical Exam Const Vital Signs: 02/14/25 23:34 02/14/25 23:39 02/15/25 01:33 Temperature 97.2 F L Temperature Source Oral Pulse Rate 58 L 120 H Respiratory Rate 19 H Respiratory Effort Normal Respiratory Depth Normal Respiratory Pattern Normal Blood Pressure 144/99 H 139/89 H Blood Pressure Mean 114 105 Pulse Ox 94 92 Oxygen Delivery Method Room Air Room Air Room Air 02/15/25 03:00 02/15/25 05:00 02/15/25 05:51 Temperature 98.6 F Temperature Source Pulse Rate 96 116 H 110 H Respiratory Rate 17 16 16 Respiratory Effort Respiratory Depth Respiratory Pattern Blood Pressure 131/93 H 129/89 H 130/84 H Blood Pressure Mean 105 102 99 Pulse Ox 94 95 95 Oxygen Delivery Method Room Air Room Air Positive well nourished and well developed General Appearance ED: well developed HEENT HEENT Narrative: No signs of depressed or basilar skull fracture Mucous membranes are mildly dry and tacky No tongue or cheek biting noted to suggest seizure activity No secondary findings in the posterior pharynx to suggest infection Eyes PERRL and EOMs intact bilaterally Neck Neck Narrative: No bony deformity or step-off of the cervical spine No midline tenderness to palpation Patient is able to move her neck in all directions without pain Chest Wall palpation of chest normal Chest Narrative: No bony deformity or subcutaneous emphysema or pain with palpation noted Resp normal respiratory effort and clear to auscultation bilaterally Resp Narrative: Breath sounds are diminished throughout but overall clear to auscultation without signs of respiratory distress Cardio regular rate and regular rhythm GI normal to inspection, nondistended, normoactive bowel sounds, non-tender, non-distended and no masses GI Narrative: Soft nontender nondistended with normal active bowel sounds No voluntary guarding or rigidity or pulsatile mass No overlying abrasions or ecchymosis noted Auscultation: normoactive bowel sounds Palpation: soft Back/Spine Back/Spine Narrative: No bony deformity or step-off of the thoracic or lumbar spine No midline tenderness to palpation Extremity Extremity Narrative: There is soft tissue swelling and ecchymosis along the distal aspect of the right thigh/femur. There is pain on palpation at this site No obvious joint effusion noted Pelvis is stable No signs of injury to the bilateral upper extremities Neuro oriented x3 and CN's II-XII intact bilaterally Sensorium / Orientation: alert Psych mental status grossly normal Skin Skin Narrative: Soft tissue swelling with ecchymosis along the distal aspect of the right thigh/femur as documented above MDM MDM MDM Narrative Medical decision making narrative: Patient arrived to the ER hypertensive and has a past medical history of this. She is awake and alert and reports that there was no syncope prior to the fall and that she simply fell because she was weak which she also states is a chronic issue for her. In order to assess for skull fracture versus traumatic subarachnoid or subdural hemorrhage or cervical compression fracture I did elect to perform CTs of the head and cervical spine. In order to assess for underlying tibial plateau patellar or distal femur fracture a knee x-ray was ordered. This showed a oblique distal femur fracture. Secondary to his a pelvis and femur x-ray were ordered. Pelvis x-ray revealed no pubic rami or femoral neck fracture. Femur x-ray redemonstrated the distal femur fracture but shows that her previous hardware is intact and in place. The patient reports her surgery was done at an outside hospital and contacting their facility informed us that her surgery was done in December [address] Lubin. Therefore the orthopedic surgery doctor on-call (Dr. Yañez) was contacted. He states that even though she has previous hardware that it would still be acceptable to transfer to their facility for them to evaluate her and fix the new fracture. As the patient technically was a fall it would now be deemed a trauma transfer. Therefore the case was discussed with the emergency room/Dr. Mathew and he agrees to accept the patient in transfer for continued care. The patient white count is elevated 18.2 and a neutrophil count is elevated approximately 17 but she is afebrile and normal tensive going against sepsis. Urine sample shows changes consistent with UTI and therefore the urine was sent for culture and she was started on Rocephin. Otherwise she has no signs of acute blood loss anemia acute kidney injury or clinically significant electrolyte abnormality. The patient was placed in a knee immobilizer for stabilization of the fracture. The fracture is also closed and she is neurovascular intact without signs of compartment syndrome. Therefore the patient remains hemodynamically stable and is safe for transfer to [facility] for continued evaluation and treatment of her distal femur fracture. History & Record Review Discussion w/independent historian: Patient Lab Data Attestation: I reviewed the patient's lab results. Labs: Laboratory Results - last 24 hr 02/15/25 02/15/25 01:50 02:00 WBC 18.2 H RBC 3.85 L Hgb 11.6 L Hct 34.9 L MCV 90.6 MCH 30.1 MCHC 33.2 RDW Std Deviation 47.2 H RDW Coeff of Zee 14.2 Plt Count 275 MPV 9.9 Immature Gran % (Auto) 0.700 Neut % (Auto) 91.1 H Lymph % (Auto) 4.9 L [place] % (Auto) 2.8 Eos % (Auto) 0.2 Baso % (Auto) 0.3 Absolute Neuts (auto) 16.6 H Absolute Lymphs (auto) 0.89 Nucleated RBC % 0 PT 16.5 H INR 1.3 APTT 30.1 Sodium 137 Potassium 4.8 Chloride 100 Carbon Dioxide 20.5 L Anion Gap 17 H BUN 31 H Creatinine 1.31 H Estim Creat Clear Calc 35.42 L Est GFR (MDRD) Non-Af 43 L BUN/Creatinine Ratio 23.3 H Glucose 230 H Calcium 9.4 Urine Color Straw Urine Clarity Sl. Cloudy Urine pH 6.5 Ur Specific [place] 1.010 Urine Protein 30 H Urine Glucose (UA) Normal Urine Ketones Negative Urine Occult Blood 10 H Urine Nitrite Positive H Urine Bilirubin Negative Urine Urobilinogen Normal Ur Leukocyte Esterase Negative Urine RBC 0-5 SEEN Urine WBC 0-5 SEEN Ur Squamous Epith Cells 0-5 SEEN Urine Bacteria 3+ Hyaline Casts 0-5 SEEN Urine Mucus 0 SEEN Radiography Diagnostic Testing: Clinical Impression(s) from Imaging Studies Knee X-Ray 02/14/25 00:13 IMPRESSION: Acute displaced angulated distal femoral diaphyseal supracondylar fracture. Reading Location: [id number] Pelvis X-Ray 02/14/25 00:13 IMPRESSION: No evidence for acute abnormality. Reading Location: [id number] Brain CT 02/14/25 23:57 IMPRESSION: Right poserior parietal small scalp hematoma noted. No acute cerebrovascular abnormalities. If clinical symptoms persist, further evaluation with MRI may be considered as clinically warranted. No intra or extra-axial acute hemorrhage. Bilateral cerebral microvascular ischemic changes with brain involutional changes. [facility] Cervical Spine CT 02/14/25 23:57 IMPRESSION: Post operative changes as detailed. Straightened cervical curve denoting myospasm. No vertebral fractures, structural collapse or dislocation. Cervical spondylodegenerative changes with multilevel uncovertebral and facet arthropathy along with posterior osteophytes inducing spinal canal and neural exit pathway compromise. [facility] Femur X-Ray 02/15/25 01:45 IMPRESSION: Oblique fracture of the distal right femur, grossly unchanged. Right femoral intramedullary romeo without hardware fracture or loosening. Reading Location: [id number] Pelvis x-ray as interpreted by the emergency medicine physician reveals no acute fracture or dislocation Right knee x-ray as interpreted by the emergency medicine physician reveals a displaced angulated distal femoral supracondylar fracture Right femur x-rays interpreted by the emergency medicine physician reveals distal femur fracture Management Discussion w/another healthcare provider: Private Duty Aide Discharge Plan Triage Chief Complaint: Fall ED Provider: Raymond Holt Dx/Rx/DC Orders Clinical Impression: Closed fracture of distal end of right femur, Paroxysmal atrial fibrillation, 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, Type 2 diabetes mellitus, Debility, Hypertension, UTI (urinary tract infection) Prescriptions: No Action (DME) Xeroform Petrolatum Dressing 5 X 9 bandage See Rx Instructions .Route Qty: 50 0RF Rx Instructions: apply to open area once daily allowing for some open are in the evening (DME) Handicap Placard See Rx Instructions .Route .MEDSUPPLY Qty: 1 0RF Rx Instructions: placard to in 1 (one) calendar year loperamide 2 mg tablet 2 mg PO Q6H PRN (Reason: loose stool) magnesium hydroxide [Dulcolax (magnesium hydroxide)] 400 mg/5 mL suspension 30 ml PO BID PRN (Reason: constipation) diclofenac sodium [Arthritis Pain (diclofenac)] 1 % gel 4 g topical 4XD PRN (Reason: pain) Qty: 100 1RF Rx Instructions: apply to single knee 2-4x/daily prn pain, achiness, stiffness or swelling (DME) WOUND CARE See Rx Instructions .Route .MEDSUPPLY Qty: 1 0RF Rx Instructions: cleanse wound, apply moist silvercel and wrap with gauze (DME) compress.stocking,knee,reg,lrg Misc See Rx Instructions .MEDSUPPLY Qty: 2 1RF Rx Instructions: wear daily for venous insufficiency 20-30 mmHg acetaminophen 325 mg capsule 650 mg PO BID PRN (Reason: Pain) Qty: 180 3RF amlodipine 10 mg tablet 10 mg PO DAILY Qty: 90 3RF apixaban 5 mg tablet 5 mg PO BID Qty: 180 3RF atorvastatin 10 mg tablet 10 mg PO DAILY Qty: 90 3RF furosemide [Lasix] 20 mg tablet 20 mg PO QAM Qty: 90 3RF Biofreeze (menthol) 4 % gel 1 applic topical BID PRN (Reason: pain) Qty: 237 1RF metformin 1,000 mg tablet 1,000 mg PO BID Qty: 180 3RF metoprolol tartrate 100 mg tablet 100 mg PO BID Qty: 180 3RF nystatin 100,000 unit/gram ointment 1 applic topical BID PRN (Reason: rash) Qty: 30 3RF oxybutynin chloride 15 mg tablet extended release 24hr 15 mg PO QDAY Qty: 90 3RF Senna Plus 8.6-50 mg capsule 2 tab-cap PO QHS PRN (Reason: constipation) Qty: 90 2RF sertraline [Zoloft] 100 mg tablet 100 mg PO DAILY Qty: 90 3RF amiodarone 200 mg tablet 200 mg PO .COMPLEX Qty: 30 11RF Rx Instructions: 200 mg orally daily: Please prepackage if pt participates in that program. Please disreguard previous 90 day RX.; ferrous sulfate 325 mg (65 mg iron) tablet 325 mg PO Q OTHER DAY Qty: 90 3RF cholecalciferol (vitamin D3) 50 mcg (2,000 unit) capsule 50 mcg PO QDAY Qty: 90 3RF ascorbate calcium (vitamin C) 500 mg tablet 500 mg PO BID Qty: 180 3RF (DME) Motorized WheelChair See Rx Instructions .Route .MEDSUPPLY Qty: 1 0RF Rx Instructions: As directed nystatin 100,000 unit/gram powder 1 applic topical TID Qty: 60 4RF Primary Care Provider: Sulma Reagan Referrals: Sulma Reagan MD [Primary Care Provider, Internal Medicine] Print Language: Lithuanian Disposition Disposition: Acute Care Hospital Discharge Location: [facility]
== END 2025-02-15 06:47 | disposition short-term general hospital (02) ==
PROVIDERS: Emergency Provider Emergency Medicine; PCP Internal Medicine; Visit Provider Emergency Medicine
DX: S72.491A Other fracture of lower end of right femur, initial encounter for closed fracture (principal); I13.0 Hypertensive heart and chronic kidney disease with heart failure and stage 1 through stage 4 chronic kidney disease, or unspecified chronic kidney disease; I50.9 Heart failure, unspecified; I48.0 Paroxysmal atrial fibrillation; E11.22 Type 2 diabetes mellitus with diabetic chronic kidney disease; N18.32 Chronic kidney disease, stage 3b; N39.0 Urinary tract infection, site not specified; Z90.710 Acquired absence of both cervix and uterus; R53.81 Other malaise; Z87.891 Personal history of nicotine dependence; Z79.01 Long term (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; W19.XXXA Unspecified fall, initial encounter; E78.5 Hyperlipidemia, unspecified; Z86.73 Personal history of transient ischemic attack (TIA), and cerebral infarction without residual deficits; Z79.899 Other long term (current) drug therapy; Z79.84 Long term (current) use of oral hypoglycemic drugs; F41.8 Other specified anxiety disorders; Z96.622 Presence of left artificial elbow joint
CPT/HCPCS: 70450; 72125; 72170; 73552; 73562; 80048; 81001; 85025; 85610; 85730; 87077; 87086; 87088; 87186; 96365; 99285; A4216

== ENCOUNTER → 2025-03-14 | Outpatient (CLI) | payer MEDICARE, SELFPAY | END | disposition home or self-care (01) | PROVIDERS: PCP Internal Medicine; Referring Provider Nurse Practitioner Gerontology; Visit Provider Nurse Practitioner Gerontology | DX: I48.0 Paroxysmal atrial fibrillation (principal) | CPT/HCPCS: 93225; 93226 ==